=== PATIENT | male | born 1970 | race Caucasian/White ===

== ENCOUNTER 2019-11-11 05:55 | Outpatient (RCR) | payer MEDICAID ==
[~2019-11-11] VITALS: Ht 182 cm; Wt 143.1 kg
[2019-11-11] MEDS ORDERED: ATEN100T PO (10:35)
[2019-11-11] MEDS ORDERED: CETI10TA21 PO (10:35)
[2019-11-11] MEDS ORDERED: FLUT100D2 IH (10:35)
[2019-11-11] MEDS ORDERED: ONDN4T PO (10:35)
[2019-11-11] MEDS ORDERED: LISI40TA PO (10:35)
[2019-11-11] MEDS ORDERED: LAMO300T PO (10:35)
[2019-11-11] MEDS ORDERED: ESCI20TA45 PO (10:35)
[2019-11-11] MEDS ORDERED: BUSP30TA2 PO (10:35)
[2019-11-11] MEDS ORDERED: OMEP20TA33 PO (10:35)
[2019-11-11] MEDS ORDERED: TMSL.4C PO (10:35)
[2019-11-11] MEDS ORDERED: GUAN2TAB6 PO (10:35)
[2019-11-11] MEDS ORDERED: MONT10TA21 PO (10:35)
[2019-11-11] MEDS ORDERED: FURO-124 PO (10:35)
[2019-11-11] MEDS ORDERED: MULT-1136 PO (10:35)
[2019-11-11] MEDS ORDERED: [UNRECOGNIZED DRUG - CODE] PO (10:35)
[2019-11-25] MEDS ORDERED: AMLO10TA7 PO (10:39)
[2019-11-25] MEDS ORDERED: TRZ50T PO (10:39)
== END 2020-02-09 | disposition home or self-care (01) ==
LOC: PREOP 05:55
PROVIDERS: ATTEND Specialist
DX: Z01.818 Encounter for other preprocedural examination (principal)

== ENCOUNTER 2019-11-26 05:38 | Outpatient (RCR) | payer MEDICAID ==
[~2019-11-26] VITALS: Ht 182.9 cm; Wt 143.1 kg
[~2019-11-26 05:38] MED LIST: AMLO10TA7 PO; ATEN100T PO; BUSP30TA2 PO; CETI10TA21 PO; ESCI20TA45 PO; FLUT100D2 IH; FURO-124 PO; GUAN2TAB6 PO; LAMO300T PO; LISI40TA PO; MONT10TA21 PO; MULT-1136 PO; OMEP20TA33 PO; ONDN4T PO; TMSL.4C PO; TRZ50T PO; [UNRECOGNIZED DRUG - CODE] PO
== END 2019-11-26 15:11 | disposition home or self-care (01) ==
LOC: PREOP 05:38
PROVIDERS: ATTEND Specialist
DX: Z01.818 Encounter for other preprocedural examination (principal); Z11.59 Encounter for screening for other viral diseases
CPT/HCPCS: 87635

== ENCOUNTER 2019-11-29 08:33 | Day surgery (SDC) | payer MEDICAID ==
[~2019-11-29] VITALS: Ht 182.9 cm; Wt 143.1 kg
--- OUTSIDE RECORDS SUMMARY | 2019-11-29 08:54 | XMS REPORT ---
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 Name Role Phone CHRIS DIAZ Unavailable PROBLEMS Type Condition ICD9-CM Code QBR61-IT Code Onset Dates Condition S tatus SNOMED Code Problem Edema R60.9 Active 863647889 Problem Morbid obesity E66.01 Active 54892 6002 Problem Metabolic syndrome E88.81 Active 2 70196427 Problem Renal insufficiency N28.9 Active 396599141 Problem Vitamin D deficiency E55.9 Active 86679312 Problem Severe episode of recurrent major depressive disorder, without 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 Active 49722735 Problem DANIELA (generalized anxiety disorder) F41.1 Active 69945558 Problem Mixed obsessional thoughts and acts F42.2 Active 10044718 Problem Chronic fatigue R53.82 Active 8422 9001 Problem Other chronic pain G89.29 Active 8 3215779 Problem Borderline personality disorder F60.3 Active 88551591 Problem Attachment disorder F94.1 Active Problem Sciatica, right side M54.31 Active 262110211373970 Problem Insomnia G47.00 Active 184983967 Problem Anxiety F41.9 Active 19622616 Problem BMI 45.0-49.9, adult Z68.42 Active 605420008 Problem Hyperlipemia E78.5 Active 6839781 4 Problem Benign essential hypertension I10 Active 2960595 Problem Callous ulcer, limited to breakdown of skin L98.49 1 Active Problem Hammer toe of right foot M20.41 Activ e 194555090 Problem Hammer toe of second toe of right foot M20.41 Active 433709621 Problem Falling episodes R29.6 Active 161 997926 ALLERGIES No Information ENCOUNTERS Encounter Location Date Diagnosis [facility] [address] [facility] [id number] [place] [address] Dec, [facility] [address] [place] [id number] [address] [place] [phone] 15 Dec, [address] [facility] [address] [id number][place] [id number] 14 Dec, 2019 [facility] [address] [id number] [address] [place] [phone] Dec, [facility] [address] [id number] [address] [place] [phone] Nov, [facility] [address] [id number] [address] [place] [phone] Nov, [facility] [address] [id number] [address] [place] [phone] October, [facility] [address] [id number] [address] [place] [phone] October, [facility] [address] [id number] [address] [place] [phone] October, [facility] [id number] [place] [address] [id number] Sep, [facility] [address] [id number] [address] [place] [phone] Sep, [facility] [id number] [place] [address] [id number] Sep, [facility] [address] [id number] [address] [place] [phone] 28 Sep, 2019 [facility] [address] [id number] [address] [place] [phone] 24 Sep, 2019 [facility] [address] [id number] [address] [place] [phone] Sep, [facility] [address] [id number] [address] [place] [phone] Sep, [facility] [address] [id number] [address] [place] [address] Sep, DANIELA (generalized anxiety dis order) F41.1 ; Severe episode of recurrent major depressive disorder, without 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 ; Mixed obsessional thoughts and acts F42.2 and Borderline personality disorder F60.3 [facility] [address] [place] [address] [facility] [id number] [place] [address] Sep, Severe episode of recurrent major depres sive disorder, without 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 [facility] [address] [id number][place] [id number] Sep, [facility] [address] [id number][place] [id number] Sep, [facility] [address] [id number][place] [id number] Sep, Benign essential hypertension I10 [facility] [address] [facility] [id number] [address] [place] [phone] Sep, [facility] [address] [facility] [id number] [address] [place] [phone] Sep, [facility] [address] [facility] [id number] [address] [place] [phone] Sep, [facility] [address] [facility] [id number] [address] [place] [phone] Sep, DANIELA (generalized anxiety dis order) F41.1 ; Severe episode of recurrent major depressive disorder, without 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 ; Mixed obsessional thoughts and acts F42.2 and Borderline personality disorder F60.3 [facility] [address] [id number], [place] [id number] Aug, [facility] [address] [facility] [id number] [address] [place] [phone] Aug, [facility] [address] [id number][place] [id number] Aug, [facility] [address] [facility] [id number] [address] [place] [phone] Aug, [facility] [address] [id number], [place] [id number] 17 Aug, 2019 Dizzy R42 ; Weight gain R63.5 ; Benign e ssential hypertension I10 ; Falling episodes R29.6 and History of gastric bypass Z98.84 [facility] [address] [place] [id number] [address] [place] [phone] 14 Aug, 2019 [facility] [address] [place] [id number] [address] [place] [phone] 13 Aug, 2019 [facility] [address] [facility] [id number] [address] [place] [address] 11 Aug, 2019 DANIELA (generalized anxiety dis order) F41.1 ; Severe episode of recurrent major depressive disorder, without 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 ; Mixed obsessional thoughts and acts F42.2 and Borderline personality disorder F60.[id number] [place] [id number] Aug, [place] [id number] [place] [address] [id number] Aug, [place] [address] [facility] [id number] [address] [place] [phone] Aug, [id number] [place] [address] [id number] Aug, [id number] [place] [address] [id number] Aug, [place] [address] [facility] [id number] [address] [place] [phone] Aug, [id number] [place] [address] [id number] Aug, Severe episode of recurrent major depres sive disorder, without 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 ; Borderline personality disorder F60.3 ; Anxiety F41.9 and Attachment disorder F94.1 [place] [address] [place] [id number] [address] [place] [phone] Jul, [place] [address] [facility] [id number] [address] [place] [phone] 24 Jul, 2019 DANIELA (generalized anxiety dis order) F41.1 ; Severe episode of recurrent major depressive disorder, without 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 ; Mixed obsessional thoughts and acts F42.2 and Borderline personality disorder F60.3 [place] [id number] [facility] [address] [id number], [place] [id number] Jul, [facility] [address] [facility] [id number] [address] [place] [phone] Jul, [facility] [address] [facility] [id number] [address] [place] [phone] 14 Jul, 2019 [facility] [address] [facility] [id number] [address] [place] [phone] 12 Jul, 2019 [facility] [address] [facility] [id number] [address] [place] [phone] Jul, [facility] [address] [facility] [id number] [address] [place] [phone] Jun, DANIELA (generalized anxiety dis order) F41.1 ; Severe episode of recurrent major depressive disorder, without 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 ; Mixed obsessional thoughts and acts F42.2 and Borderline personality disorder F60.3 [address] [id number][place] [id number] Jun, [facility] [address] [facility] [address] [id number], [place] [id number] Jun, [facility] [address] [facility] [id number] [address] [place] [phone] Jun, [facility] [address] [facility] [id number] [address] [place] [phone] Jun, DANIELA (generalized anxiety dis order) F41.1 ; Severe episode of recurrent major depressive disorder, without 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 ; Mixed obsessional thoughts and acts F42.2 and Borderline personality disorder F60.[address] [place] [id number] [id number], [place] [id number] Jun, [facility] [address] [id number], [place] [id number] Jun, [facility] [address] [id number], [place] [id number] Jun, [facility] [place] [address] [facility] [address] [id number], [place] [id number] Jun, Benign essential hypertension I10 ; Morb id obesity E66.01 ; Severe episode of recurrent major depressive disorder, without 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 ; Excess skin L98.7 and Hyperlipemia E78.5 [place] [address] [place] [id number] [place] [phone] Jun, [place] [address] [place] [id number] [place] [phone] May, [place] [address] [address] May, Severe episode of recurrent major depressive disorder, without 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 ; Mixed obsessional thoughts and acts F42.2 ; DANIELA (generalized anxiety disorder) F41.1 and Borderline personality disorder F60.3 [place] [address] [place] [id number] [address] [place] [phone] May, [facility] [address] [place] [id number] [address] [place] [phone] May, DANIELA (generalized anxiety dis order) F41.1 ; Severe episode of recurrent major depressive disorder, without 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 ; Mixed obsessional thoughts and acts F42.2 and Borderline personality disorder F60.3 [place] [address] [place] [id number] [address] [place] [phone] May, [facility] [address] [place] [id number] [address] [place] [phone] May, [facility] [address] [place] [id number] [address] [place] [address] May, Severe episode of recurrent major depressive disorder, without 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 ; Mixed obsessional thoughts and acts F42.2 ; Borderline personality disorder F60.3 and DANIELA (generalized anxiety disorder) F41.1 [facility] [address] [id number] [address] [place] [address] [phone] May, Caries K02.9 [facility] [address] [id number], [place] [id number] May, Benign essential hypertension I10 [facility] [address] [id number], [place] [id number] Apr, [facility] [address] [id number], [place] [id number] Apr, Benign essential hypertension I10 [facility] [address] [place] [id number] [address] [place] [phone] Apr, Borderline personality disor romero F60.3 ; DANIELA (generalized anxiety disorder) F41.1 ; Mixed obsessional thoughts and acts F42.2 and Severe episode of recurrent major depressive disorder, without 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 [facility] [address] [id number], [place] [id number] Apr, [facility] [address] [id number], [place] [id number] Apr, Benign essential hypertension I10 [facility] [address] [place] [phone] Apr, Severe episode of recurrent major depressive disorder, without 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 ; DANIELA (generalized anxiety disorder) F41.1 ; Borderline personality disorder F60.3 and Mixed obsessional thoughts and acts F42.2 [facility] [address] [id number] [address] [place] [address] [id number] Apr, Dental examination Z01.20 [facility] [address] [id number] [address] [place] [address] [id number] Apr, Caries K02.9 and Dental exam ination Z01.20 [facility] [address] [place] [id number] [address] [place] [phone] Apr, DANIELA (generalized anxiety dis order) F41.1 ; Severe episode of recurrent major depressive disorder, without 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 ; Mixed obsessional thoughts and acts F42.2 and Borderline personality disorder F60.3 [facility] [address] [facility] [id number] [address] [place] [phone] Mar, Severe episode of recurrent major depressive disorder, without 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 ; Mixed obsessional thoughts and acts F42.2 ; Borderline personality disorder F60.3 and DANIELA (generalized anxiety disorder) F41.1 [place] [address] [facility] [id number] [address] [place] [phone] Mar, Severe episode of recurrent major depressive disorder, without 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 ; Mixed obsessional thoughts and acts F42.2 ; DANIELA (generalized anxiety disorder) F41.1 and Borderline personality disorder F60.3 [facility] [address] [place] [id number] [address] [place] [address] [id number] Mar, Dental examination Z01.20 [address]ies K02.[address] [facility] [id number] [place] [address] [id number] Mar, Benign essential hypertension I10 and Fa lling episodes R29.6 [facility] [address] [facility] [id number] [address] [place] [phone] Mar, [place] [address] [facility] [id number] [address] [place] [phone] Mar, Severe episode of recurrent major depressive disorder, without 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 ; Mixed obsessional thoughts and acts F42.2 ; Borderline personality disorder F60.3 and DANIELA (generalized anxiety disorder) F41.1 [place] [address] [facility] [id number] [address] [place] [phone] Mar, [facility] [address] [facility] [id number] [address] [place] [phone] Mar, [facility] [address] [id number], [place] [id number] Mar, [facility] [address] [facility] [id number] [address] [place] [address] Mar, Severe episode of recurrent major depressive disorder, without 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 ; Mixed obsessional thoughts and acts F42.2 ; Borderline personality disorder F60.3 and DANIELA (generalized anxiety disorder) F41.1 [facility] [address] [facility] [id number] [address] [place] [phone] Mar, [facility] [address] [id number] [address] [place] [address] [id number] Feb, Dental examination Z01.20 an d Periodontitis K05.30 [facility] [address] [facility] [id number] [address] [place] [phone] Feb, DANIELA (generalized anxiety dis order) F41.1 ; Severe episode of recurrent major depressive disorder, without 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 ; Mixed obsessional thoughts and acts F42.2 and Borderline personality disorder F60.3 [facility] [address] [id number], [place] [id number] Feb, Acute pain of right knee M25.561 ; Fall, initial encounter W19.XXXA ; Benign essential hypertension I10 and Edema R60.9 [facility] [address] [facility] [id number] [address] [place] [phone] Feb, [facility] [address] [facility] [id number] [address] [place] [phone] Feb, DANIELA (generalized anxiety dis order) F41.1 ; Severe episode of recurrent major depressive disorder, without 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 ; Mixed obsessional thoughts and acts F42.2 and Borderline personality disorder F60.3 [facility] [address] [facility] [id number] [address] [place] [phone] Feb, [facility] [address] [facility] [id number] [address] [place] [phone] Jan, [facility] [address] [facility] [id number] [address] [place] [phone] Jan, [facility] [address] [facility] [id number] [address] [place] [phone] Jan, [facility] [address] [facility] [id number] [place] [address] [phone] Jan, Callus of heel L84 ; Fissure in skin R23 .4 and Hammer toe of second toe of right foot M20.41 [facility] [address] [place] [address] [id number] [place] [address] [id number] Jan, [facility] [address] [place] [id number] [address] [place] [phone] Jan, [facility] [address] [place] [id number] [place] [address] Jan, [place] [address] [address] Jan, Severe episode of recurrent major depressive disorder, without 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 ; DANIELA (generalized anxiety disorder) F41.1 ; Mixed obsessional thoughts and acts F42.2 and Borderline personality disorder F60.3 [facility] [address] [place] [phone] Jan, [facility] [address] [place] [address] [id number] [place] [address] [id number] Jan, Benign essential hypertension I10 [facility] [address] [place] [address] [id number] [place] [address] [id number] Dec, Callous ulcer, limited to breakdown of s kin L98.491 and Morbid obesity E66.01 [facility] [address] [facility] [id number] [address] [place] [address] Dec, [facility] [address] [place] [id number] [address] [place] [phone] Dec, [facility] [address] [place] [id number] [place] [phone] Dec, [facility] [address] [facility] [id number] [address] [place] [phone] Dec, [facility] [address] [facility] [id number] [address] [place] [address] Dec, Severe episode of recurrent major depressive disorder, without 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 [facility] [address] [facility] [id number] [address] [place] [phone] Dec, DANIELA (generalized anxiety dis order) F41.1 ; Severe episode of recurrent major depressive disorder, without 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 ; Mixed obsessional thoughts and acts F42.2 and 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 [facility] [address] [id number], [place] [id number] Dec, Morbid obesity E66.01 [facility] [address] [facility] [id number] [address] [place] [phone] Dec, [facility] [address] [facility] [id number] [address] [place] [address] Dec, [facility] JENNY [address] [id number] [address] Nov, [facility] [address] [id number], [place] [id number] Nov, [facility] [address] [facility] [id number] [address] [place] [address] Nov, [facility] [address] [facility] [id number] [address] [place] [phone] Nov, [facility] [address] [facility] [id number] [address] [place] [phone] Nov, DANIELA (generalized anxiety dis order) F41.1 ; Severe episode of recurrent major depressive disorder, without 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 ; Mixed obsessional thoughts and acts F42.2 and 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 [facility] [address] [id number], [place] [id number] Nov, Morbid obesity E66.01 [facility] [address] [facility] [id number] [address] [place] [phone] Nov, [facility] [address] [facility] [id number] [address] [place] [phone] Nov, DANIELA (generalized anxiety dis order) F41.1 ; Mixed obsessional thoughts and acts F42.2 ; Severe episode of recurrent major depressive disorder, without 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 and 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 [address] [id number], [place] [id number] October, Morbid obesity E66.01 [facility] [address] [id number], [place] [id number] October, Benign essential hypertension I10 and Mo rbid obesity E66.01 [facility] [address] [id number], [place] [id number] October, [facility] [address] [place] [id number] [address] [place] [phone] October, Severe episode of recurrent major depressive disorder, without 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 [facility] [address] [id number], [place] [id number] October, Morbid obesity E66.01 [facility] [address] [id number], [place] [id number] October, [facility] [address] [facility] [id number] [address] [place] [phone] October, Severe episode of recurrent major depressive disorder, without 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 ; DANIELA (generalized anxiety disorder) F41.1 ; Mixed obsessional thoughts and acts F42.2 and 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 [address] [id number], [place] [id number] October, Morbid obesity E66.01 [facility] [address] [id number] [address] [place] [address] [id number] Sep, Dental examination Z01.20 [facility] [address] [id number], [place] [id number] Sep, [facility] [address] [facility] [id number] [place] [address] Sep, Sore in mouth K13.79 and Mor bid obesity E66.01 [facility] [address] [facility] [id number] [address] [place] [phone] Sep, Dental examination Z01.20 [facility] [address] [facility] [id number] [address] [place] [id number] Sep, Anxiety disorder, unspecifie d F41.[id number] [place] [id number] Sep, Mouth ulcer K12.1 [id number] [place] [id number] Sep, Morbid obesity E66.01 [facility] [place] [id number] [place] [id number] Sep, Allergic rhinitis, unspecified seasonali ty, unspecified trigger J30.9 and Shortness of breath R06.02 [facility] [id number] [id number] Sep, 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 [facility] [id number] [id number] Aug, Mouth abscess K12.2 ; Mouth ulcer K12.1 ; Bloating R14.0 and Morbid obesity E66.01 [facility] [address] [id number], [place] [id number] Aug, [facility]USASLAN PharmaceuticalsBROWNLEE [employer] [address] [id number], [place] [id number] Aug, [facility] [address] [id number], [place] [id number] Jul, Major depressive disorder, recurrent, mo derate F33.1 ; Abscess of arm, left L02.414 ; BMI 45.0-49.9, adult Z68.42 and Morbid obesity E66.01 [facility] Jama [facility] [address] [id number], [place] [id number] Jul, [facility] [address] [id number], [place] [id number] Jul, [facility] Jama [facility] [address] [id number], [place] [id number] Jun, Pain in right knee M25.561 and Other chr onic pain G89.29 [facility]USKiesha [address] A[address] [id number], [place] [id number] Jun, Benign essential hypertension I10 ; BMI 45.0-49.9, adult Z68.42 ; Morbid obesity E66.01 ; Vitamin D deficiency E55.9 ; Insomnia G47.00 ; 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 ; Edema R60.9 ; Recurrent major depressive disorder, in partial remission F33.41 ; Chronic fatigue R53.82 ; Acute pain of right knee M25.561 ; Metabolic syndrome E88.81 and Irritable mood R45.4 [place] [address] [place] [id number] [place] [phone] 16 Jun, 2018 [facility] Jama [facility] [address] [id number], [place] [id number] Jun, Irritable mood R45.4 [facility] [address] [place] [id number] [address] [place] [phone] May, [facility] [address] [place] [id number] [address] [place] [address] May, [facility] [address] [place] [id number] [address] [place] [address] May, Recurrent major depressive d isorder, in partial remission F33.41 ; Mixed obsessional thoughts and acts F42.2 ; 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 and BMI 45.0-49.9, adult Z68.42 [facility] [address] [place] [id number] [address] [place] [address] Apr, [facility] [address] [facility] [id number] [address] [place] [address] Apr, [facility] [address] [place] [id number] [address] [place] [phone] Apr, [facility] [address] [place] [id number] [address] [place] [phone] Apr, [facility] [address] [place] [id number] [address] [place] [address] Mar, Mixed obsessional thoughts a nd acts F42.2 ; Recurrent major depressive disorder, in partial remission F33.41 ; DANIELA (generalized anxiety disorder) F41.1 and BMI 45.0-49.9, adult Z68.[id number] [place] [id number] Mar, [id number] [place] [address] [phone] Mar, BMI 45.0-49.9, adult Z68.42 ; Instabilit y of right knee joint M25.361 and Rash R21 [place] [address] [place] [id number] [address] [place] [phone] Jan, Recurrent major depressive d isorder, in partial remission F33.41 ; Mixed obsessional thoughts and acts F42.2 and BMI 45.0-49.9, adult Z68.[id number] [place] [address] [id number] Jan, [place] [id number] [place] [address] [id number] Jan, Benign essential hypertension I10 ; BMI 45.0-49.9, adult Z68.42 ; Metabolic syndrome E88.81 and Allergic rhinitis, unspecified seasonality, unspecified trigger J30.9 [facility] [address] [facility] [id number] [address] [place] [phone] Dec, DANIELA (generalized anxiety dis order) F41.1 and Depressive disorder, not elsewhere classified F32.[address] [id number] [place] [id number] Dec, Recurrent major depressive disorder, in partial remission F33.[address] [id number] [place] [id number] Dec, [facility] [address] [id number], [place] [id number] Nov, [facility] [address] [id number], [place] [id number] Nov, Recurrent major depressive disorder, in partial remission F33.41 [facility] [address] [facility] [id number] [address] [place] [address] Nov, Recurrent major depressive d isorder, in partial remission F33.41 ; Mixed obsessional thoughts and acts F42.2 ; DANIELA (generalized anxiety disorder) F41.1 and BMI 45.0-49.9, adult Z68.42 [facility] [address] [id number] [place] [employer] 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[place] [id number] Nov, [facility] [address] [id number], [place] [id number] Nov, Other conjunctivitis of both eyes H10.89 and Sciatica, right side M54.31 [facility] [address] [id number], [place] [id number] Nov, [facility] [address] [id number], [place] [id number] Nov, [facility] [address] [id number], [place] [id number] October, [facility] [address] [id number], [place] [id number] October, [facility] [address] [facility] [id number] [address] [place] [address] October, BMI 45.0-49.9, adult Z68.42 ; Mixed obsessional thoughts and acts F42.2 ; Recurrent major depressive disorder, in partial remission F33.41 and DANIELA (generalized anxiety disorder) F41.1 [facility] [address] [id number], [place] [id number] October, Benign essential hypertension I10 ; Morb id obesity E66.01 and BMI 45.0-49.9, adult Z68.[address] [id number] [place] [address] [id number] Sep, [facility] [address] [id number] [place] [address] [id number] Sep, [facility] [address] [id number] [place] [address] [id number] Sep, [facility] [address] [id number] [place] [address] [phone] Sep, Hospital discharge follow-up Z09 ; Aller gic rhinitis, unspecified seasonality, unspecified trigger J30.9 and Shortness of breath R06.02 [facility] [address] [id number], [place] [id number] Sep, Recurrent major depressive disorder, in partial remission F33.[address] [id number] [place] [address] [id number] Aug, Irritable mood R45.4 [place] [address] [place] [id number] [address] [place] [address] Aug, [facility] [address] [id number] [place] [address] [id number] Jul, Benign essential hypertension I10 ; Robert a R60.9 and Impacted cerumen of left ear H61.22 [place] [address] [address] Jul, Major depression F32.9 ; Rec urrent major depressive disorder, in partial remission F33.41 and Anxiety F41.9 [place] [address] [address] Jun, Major depression F32.9 ; Rec urrent major depressive disorder, in partial remission F33.[address] [facility] [address] [id number], [place] [id number] Jun, Major depression F32.9 ; Morbid obesity E66.01 ; Irritable mood R45.4 ; Hand weakness R29.898 and Vitamin D deficiency E55.9 [facility] [address] [id number], [place] [id number] Jun, [place] [address] [id number], [place] [id number] May, Major depression F32.9 [place] [address] [facility] [id number] [address] [place] [address] May, Major depression F32.[address] [id number], [place] [id number] May, BMI 50.0-59.9, adult Z68.43 ; Major depr ession F32.9 ; Anxiety F41.9 ; Hypertrophic toenail L60.2 and Pain of left great toe M79.[address] [id number], [place] [id number] May, Recurrent major depressive disorder, in partial remission F33.41 [place] [address] [place] [id number] [address] [place] [address] Apr, [facility] [address] [id number], [place] [id number] Apr, [facility] [address] [facility] [id number] [address] [place] [address] Apr, Major depression F32.9 [facility] [address] [id number], [place] [id number] Apr, Severe episode of recurrent major depres sive disorder, without 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 ; Anxiety F41.[address] [facility] [address] [id number], [place] [id number] Apr, [facility] [address] [facility] [id number] [address] [place] [address] Apr, [facility] [address] [id number], [place] [id number] Apr, [facility] [address] [id number], [place] [id number] Mar, [facility] [address] [id number], [place] [id number] Mar, Allergic conjunctivitis of both eyes H10 .13 [facility] [address] [facility] [id number] [address] [place] [address] Mar, Major depression F32.9 [facility] [address] [id number], [place] [id number] Mar, Metabolic syndrome E88.81 ; History of g astric bypass Z98.890 ; Benign essential hypertension I10 ; Allergic conjunctivitis of both eyes H10.13 and Morbid obesity E66.01 [facility] [address] [facility] [id number] [address] [place] [address] Mar, Major depression F32.9 [facility] [address] [id number], [place] [id number] Feb, [facility] [address] [facility] [id number] [address] [place] [phone] Feb, Major depression F32.9 [facility] [address] [id number], [place] [id number] Feb, Subacute maxillary sinusitis J01.00 and Bronchitis J40 [facility] [address] [facility] [id number] [address] [place] [address] Feb, Major depressive disorder, r ecurrent, moderate F33.1 [facility] [address] [id number], [place] [id number] Jan, [facility] [address] [id number], [place] [id number] Jan, Acute non-recurrent maxillary sinusitis J01.00 and Skin tag L91.8 [facility]USKiesha [place] [address] [place] [address] AVE [id number], [place] [id number] Jan, Cough R05 and Sinus congestion R09.81 [facility]USKiesha OROSCOBRONWLEE[address] [id number], [place] [id number] Jan, [facility]USKiesha OROSCOBROWNLEE[address] [id number], [place] [id number] Jan, Benign essential hypertension I10 ; Hist ory of gastric bypass Z98.890 and Nausea and vomiting in adult R11.2 [place] [id number] [place] [phone] 04 Jan, 2017 Major depressive disorder, r ecurrent, moderate F33.1 [place] [address] [place] [id number] [address] [place] [phone] 12 Dec, 2016 Insomnia G47.00 ; Recurrent major depressive disorder, in partial remission F33.41 and Morbid obesity E66.01 [facility] [address] [id number], [place] [id number] Dec, [facility]USKiesha OROSCOBROWNLEE[address] [id number], [place] [id number] Dec, Chronic bacterial conjunctivitis of left eye H10.402 [facility] [address] [id number], [place] [id number] Nov, [facility]USKiesha OROSCOBROWNLEE[address] [id number], [place] [id number] Nov, Dental examination Z01.20 [facility] [id number] [place] [address] [id number] Nov, Benign essential hypertension I10 ; Hist ory of gastric bypass Z98.890 and Nausea and vomiting in adult R11.2 [place] [address] [place] [id number] [address] [place] [address] Nov, Major depressive disorder, r ecurrent, moderate F33.1 ; Generalized anxiety disorder F41.1 and Insomnia due to other mental disorder F51.05 [place] [address] [facility] [id number] [address] [place] [address] Nov, Recurrent major depressive d isorder, in partial remission F33.41 ; Insomnia G47.00 and Morbid obesity E66.01 [facility] [address] [id number] [place] [id number] October, Abscess of left arm L02.414 [place] [address] [facility] [id number] [address] [place] [address] October, Morbid obesity E66.01 ; Lida r depression F32.9 and Recurrent major depressive disorder, in partial remission F33.41 [facility] [address] [id number], [place] [id number] Sep, Benign essential hypertension I10 ; Morb id obesity E66.01 ; S/P gastric bypass Z98.84 ; Abscess L02.91 and Chronic bacterial conjunctivitis of left eye H10.402 [facility] [id number] [place] [address] [id number] Sep, Dental examination Z01.20 [place] [address] [facility] [id number] [address] [place] [phone] Sep, Morbid obesity E66.01 ; Lida r depression F32.9 and Recurrent major depressive disorder, in partial remission F33.41 [place] [address] [facility] [id number] [address] [place] [phone] Jul, [place] [address] [facility] [id number] [address] [place] [phone] Jul, Major depressive disorder, r ecurrent, moderate F33.1 [place] [address] [facility] [id number] [address] [place] [address] Jul, Major depressive disorder, r ecurrent, moderate F33.1 and Generalized anxiety disorder F41.1 [facility] [address] [id number], [place] [id number] Jul, Cough R05 [facility] [address] [facility] [id number] [address] [place] [address] Jul, Morbid obesity E66.01 ; Lida r depression F32.9 and Recurrent major depressive disorder, in partial remission F33.41 [facility] [address] [id number], [place] [id number] Jul, [facility] [address] [id number], [place] [id number] Jul, [place] [id number] [place] [address] [id number] Jul, Gastroenteritis K52.9 and Cough R05 [id number] [place] [address] [id number] Jun, Acute bacterial conjunctivitis of left e ye H10.32 [facility] [address] [place] [id number] [address] [place] [address] Jun, [place] [address] [address] Jun, Recurrent major depressive d isorder, in partial remission F33.41 [facility] [address] [place] [id number] [address] [place] [address] May, Major depression F32.9 and M orbid obesity E66.01 [facility] [address] [place] [id number] [place] [phone] May, [facility] [address] [facility] [address] [id number] [place] [address] [id number] May, Thrush B37.0 [facility] [address] [place] [id number] [address] [place] [address] Apr, Major depressive disorder, r ecurrent, moderate F33.1 [facility] [address] [place] [id number] [address] [place] [phone] 15 Apr, 2016 Insomnia G47.00 ; Major depr ession F32.9 and Recurrent major depressive disorder, in partial remission F33.41 [facility] [address] [facility] [id number] [address] [place] [phone] Apr, [place] [address] [facility] [id number] [address] [place] [phone] Apr, Major depression F32.9 and R ecurrent major depressive disorder, in partial remission F33.[address] [id number], [place] [id number] Mar, Benign essential hypertension I10 ; Morb id obesity E66.01 ; Impacted cerumen of both ears H61.23 ; Laceration of finger of right hand, initial encounter S61.219A and Encounter for immunization Z23 [facility] [address] [facility] [id number] [address] [place] [phone] 17 Mar, 2016 [place] [address] [facility] [id number] [address] [place] [phone] Mar, [place] [address] [facility] [id number] [address] [place] [phone] Mar, [address] [id number], [place] [id number] Feb, Nausea R11.0 ; Blood in the stool K92.1 and Benign essential hypertension I10 [place] [address] [facility] [id number] [address] [place] [phone] Feb, Major depression F32.9 and R ecurrent major depressive disorder, in partial remission F33.41 [facility] [address] [id number], [place] [id number] Feb, [place] [address] [id number], [place] [id number] Feb, Recurrent major depressive disorder, in partial remission F33.41 [facility] [address] [id number], [place] [id number] Jan, [facility] [address] [id number], [place] [id number] Jan, Benign essential hypertension I10 ; Robert a R60.9 and Hyperlipidemia, unspecified hyperlipidemia type E78.5 [facility] [address] [id number], [place] [id number] Jan, Recurrent major depressive disorder, in partial remission F33.41 [facility] [address] [id number] [place] [id number] Jan, [facility] [address] [id number], [place] [id number] Jan, [facility] [address] [id number], [place] [id number] Jan, [facility] [address] [facility] [id number] [address] [place] [phone] Jan, [facility] [address] [facility] [id number] [address] [place] [address] Dec, [facility] [address] [facility] [id number] [address] [place] [address] Nov, [facility] [address] [facility] [id number] [address] [place] [address] Nov, Major depression F32.9 [facility] [address] [facility] [id number] [address] [place] [address] Nov, [facility] [address] [facility] [id number] [address] [place] [address] Nov, [facility] [address] [facility] [id number] [address] [place] [phone] Nov, Major depressive disorder, r ecurrent episode, mild F33.0 and Anxiety F41.9 [facility] [address] [id number], [place] [id number] Nov, [facility] [address] [id number], [place] [id number] October, Left elbow pain M25.522 and Other season al allergic rhinitis J30.2 [facility] [address] [facility] [address] [id number], [place] [id number] October, [facility] [address] [facility] [id number] [address] [place] [address] October, Major depressive disorder, r ecurrent, moderate F33.1 [facility] [address] [facility] [id number] [address] [place] [phone] October, Major depression F32.9 [facility] [address] [facility] [id number] [address] [place] [phone] Sep, Snyder or callus L84 and Onych omycosis B35.1 [facility] [address] [facility] [id number] [address] [place] [phone] Sep, Major depressive disorder, r ecurrent, moderate F33.1 [facility] [address] [facility] [id number] [address] [place] [address] Sep, Major depression F32.9 [facility] [address] [facility] [id number] [address] [place] [address] Sep, Moderate episode of recurren t major depressive disorder F33.1 [facility] [address] [place] [address] AVE [id number], [place] [id number] Sep, Muscle strain T14.8 [facility] [address] [facility] [id number] [address] [place] [phone] Aug, Major depression F32.9 [facility] [address] [facility] [id number] [address] [place] [phone] Aug, Major depression F32.9 [facility] [address] [facility] [id number] [address] [place] [address] Jul, Morbid obesity E66.01 and Ma cora depression F32.9 [facility] [address] [facility] [id number] [address] [place] [phone] Jul, Depression, major, recurrent , moderate F33.[address] [id number] [id number] Jul, [facility] [address] [facility] [id number] [address] [place] [id number] Jul, [facility] [address] [facility] [id number] [address] [place] [id number] Jul, Major depression F32.9 and M orbid obesity E66.[address] [id number] [id number] Jul, Type II diabetes mellitus E11.9 ; Callus of foot L84 ; Benign essential hypertension I10 and Renal insufficiency N28.9 [facility] [address] [facility] [id number] [address] [place] [id number] 09 Jul, 2015 Depression, major, recurrent , moderate F33.1 [facility] [address] [facility] [id number] [address] [place] [id number] Jul, Major depression F32.9 [facility] [address] [place] [id number] [address] [place] [id number] Jul, [facility] [address] [facility] [id number] [address] [place] [id number] Jun, Major depression F32.9 [facility] [address] [facility] [id number] [address] [place] [id number] Jun, Major depressive disorder, r ecurrent, moderate F33.1 [facility] [address] [facility] [id number] [address] [place] [id number] Jun, [place] [address] [facility] [id number] [address] [place] [id number] Jun, Major depressive disorder, r ecurrent, moderate F33.1 and Major depression F32.[address] [id number][place] [id number] Jun, Type II diabetes mellitus E11.9 [place] [address] [address] [facility] [id number] [address] [place] [id number] Jun, Depression, major, recurrent , moderate F33.1 [place] [address] [address] [facility] [id number] [address] [place] [phone] May, Major depressive disorder, r ecurrent, moderate F33.1 [place] [address] [address] [facility] [id number] [address] [place] [phone] May, [place] [address] [id number], [place] [id number] May, Edema R60.9 [place] [address] [address] [facility] [id number] [address] [place] [address] May, Insomnia G47.00 and Major de pression F32.[address] [place] [id number] [place] [address] [id number] May, Morbid obesity E66.01 ; Edema R60.9 ; Sh ortness of breath R06.02 ; Benign essential hypertension I10 and Renal insufficiency N28.[address] [place] [id number] [place] [address] [id number] May, Hyperlipemia 272.4 and Renal insufficien cy N28.9 [place] [address] [address] [facility] [id number] [address] [place] [address] Apr, Major depression F32.9 [place] [address] [address] [facility] [id number] [address] [place] [address] Apr, [place] [address] [address] [facility] [id number] [address] [place] [address] Apr, Major depressive disorder, r ecurrent, moderate F33.[address] [place] [address] [id number] [id number] Apr, Type II diabetes mellitus E11.9 ; Benign essential hypertension I10 ; Edema R60.9 and Renal insufficiency N28.9 [place] [address] N [facility] [id number] [address] [place] [address] Mar, Major depressive disorder, r ecurrent, moderate F33.1 [facility] [address] [facility] [id number] [address] [place] [address] Mar, [facility] [address] [facility] [id number] [address] [place] [address] Mar, Major depression F32.9 [facility] [id number] [place] [address] [id number] Mar, Morbid obesity E66.01 ; Benign essential hypertension I10 and Type II diabetes mellitus E11.9 [place] [address] [address] [facility] [id number] [address] [place] [address] Feb, Major depressive disorder, r ecurrent, moderate F33.1 [place] [address] [address] [place] [id number] [address] [place] [address] Feb, Major depressive disorder, r ecurrent episode, in partial or unspecified remission 296.35 ; Anxiety state, unspecified 300.00 and Morbid obesity 278.01 [place] [address] [address] [place] [id number] [address] [place] [address] Feb, [place] [id number] [place] [address] [id number] Feb, Vomiting 787.03 and Viral syndrome 079.9 9 [place] [address] [address] [place] [id number] [address] [place] [address] 15 Feb, 2015 Major depression, recurrent 296.30 ; Generalized anxiety disorder 300.02 and No condition on [facility] II V71.09 [facility] [id number] [place] [address] [id number] Feb, Skin tag 701.9 [facility] [address] N [facility] [id number] [address] [place] [address] Feb, [place] [address] [address] [place] [id number] [address] [place] [address] Jan, Depression, major, recurrent , moderate 296.[address] [id number][place] [id number] Jan, Nausea and vomiting 787.01 ; Rib pain on right side 786.50 and Fall on or from sidewalk curb E880.1 [facility] [address] [facility] [id number] [address] [place] [address] Jan, [facility] [address] N [place] [id number] [address] [place] [address] Jan, Major depressive disorder, r ecurrent episode, in partial or unspecified remission 296.35 and Anxiety state, unspecified 300.[address] [id number] [id number] Jan, [facility] 301 N [facility] [id number] [address] [place] [address] Jan, Depression, major, recurrent , moderate 296.32 [facility] [address] [facility] [id number] [address] [place] [address] Jan, Major depression, recurrent 296.30 ; No condition on Hopkins II V71.09 and No condition on axis III V71.[address] [id number] [id number] Jan, Drug-induced nausea and vomiting 787.01 [facility] 301 N [facility] [id number] [address] [place] [address] Jan, Depression, major, recurrent , moderate 296.32 [place] [address] [address] [facility] [id number] [address] [place] [address] Dec, Depression, major, recurrent , moderate 296.[address] [id number][place] [id number] Dec, Morbid obesity 278.01 ; Metabolic syndro me 277.7 ; Hyperlipemia 272.4 ; Benign essential hypertension 401.1 ; Dietary counseling V65.3 ; Exercise counseling V65.41 and Inflamed skin tag 701.9 [place] [address] [address] Dec, Depression, major, recurrent , moderate 296.32 [place] [address] [address] Dec, [place] [address] [address] Dec, Major depression, recurrent 296.30 ; Anxiety, generalized 300.02 and No condition on Hopkins II V71.09 [place] [address] [address] Dec, Depression, major, recurrent , moderate 296.32 [place] [address] [address] Dec, Major depressive disorder, r ecurrent episode, moderate 296.[address] [address] Dec, Depression, major, recurrent , moderate 296.32 [place] [address] [address] Dec, Depression, major, recurrent , moderate 296.32 [place] [address] [address] Dec, Depression, major, recurrent , moderate 296.32 [place] [address] [address] Dec, Depression, major, recurrent , moderate 296.32 [place] [address] [address] Nov, Depression, major, recurrent , moderate 296.32 [place] [address] [address] Nov, Major depression 296.20 ; So cial phobia 300.23 and No condition on Hopkins II V71.09 [place] [address] [address] [place] [address] 16 Nov, 2014 Depression, major, recurrent , moderate 296.32 [facility] [address] [facility] [id number] [address] [place] [address] 09 Nov, 2014 Major depressive disorder, r ecurrent episode, moderate 296.32 and Generalized anxiety disorder 300.02 [facility] [address] [facility] [id number] [address] [place] [address] Nov, Depression, major, recurrent , moderate 296.32 [facility] [address] [facility] [id number] [address] [place] [address] Nov, Depression, major, recurrent , moderate 296.32 [facility] [address] [place] [id number] [place] [address] October, Generalized anxiety disorder 300.02 ; No condition on Hopkins II V71.09 and Major depressive disorder, recurrent 296.30 [facility] [address] [place] [id number] [address] [place] [address] Sep, [facility] [address] [place] [id number] [address] [place] [address] Sep, [facility] [address] [place] [id number] [address] [place] [address] Aug, [facility] [address] [place] [id number] [address] [place] [address] Aug, [facility] [address] [place] [id number] [address] [place] [address] Aug, [facility] [address] [place] [id number] [address] [place] [address] Aug, [facility] [address] [place] [id number] [address] [place] [address] Aug, [facility] [address] [place] [id number] [address] [place] [address] Aug, [facility] [address] [place] [id number] [address] [place] [address] 20 Aug, 2014 [facility] [address] [id number] [address] [place] [address], [place] [address] 20 Aug, 2014 [facility] [place] [facility] [address] [id number] [address] [place] [address], [place] [address] 13 Aug, 2014 [facility] [place] [facility] [address] [id number] [address] [place] [address], [place] [address] 13 Aug, 2014 [facility] [place] [facility] [address] [id number] [address] [place] [address], [place] [address] 13 Aug, 2014 [facility] [place] [facility] [address] [id number] [address] [place] [address], [place] [address] Aug, [facility] [place] [facility] [address] [id number] [address] [place] [address], [place] [address] Aug, [facility] [place] [facility] [address] [id number] [address] [place] [address], [place] [address] Aug, [facility] [place] [facility] [address] [id number] [address] [place] [address], [place] [address] 10 Aug, 2014 [facility] [place] [facility] [address] [id number] [address] [place] [address], [place] [address] 10 Aug, 2014 [facility] [place] [facility] [address] [id number] [address] [place] [address], [place] [address] Aug, [facility] [place] [facility] [address] [id number] [address] [place] [address], [place] [address] Aug, [facility] [place] [facility] [address] [id number] [address] [place] [address], [place] [address] 24 Jul, 2014 [facility] [place] [facility] [address] [id number] [address] [place] [address], [place] [address] Jul, [facility] [place] [facility] [address] [id number] [address] [place] [address], [place] [address] 16 Jul, 2014 [facility] [place] [facility] [address] [id number] [address] [place] [address], [place] [address] 16 Jul, 2014 [facility] [place] [facility] [address] [id number] [address] [place] [address], [place] [address] Jul, [facility] [address] [id number] [address] [place] [address], [place] [address] Jul, [facility] [address] [id number] [address] [place] [address], [place] [address] Jun, [facility] [address] [id number] [address] [place] [address], [place] [address] Jun, [facility] [address] [id number] [address] [place] [address], [place] [address] Jun, [facility] [address] [id number] [address] [place] [address], [place] [address] Jun, [facility] [address] [id number] [address] [place] [address], [place] [address] Jun, [facility] [address] [id number] [address] [place] [address], [place] [address] Jun, [facility] [address] [id number] [address] [place] [address], [place] [address] Jun, [facility] [address] [id number] [address] [place] [address], [place] [address] Jun, [facility] [address] [id number] [address] [place] [address], [place] [address] Jun, [facility] [address] [id number] [address] [place] [address], [place] [address] Jun, [facility] [address] [id number] [address] [place] [address], [place] [address] Jun, [facility] [address] [id number] [address] [place] [address], [place] [address] Jun, [facility] [address] [id number] [id number] Jun, [facility] [address] [id number] [address] [place] [address], [place] [address] Jun, [facility] [address] [id number] [address] [place] [address], [place] [address] Jun, [facility] [place] [facility] [address] [id number] [address] [place] [address], [place] [address] Jun, [facility] [address] [id number] [address] [place] [address], [place] [address] May, [facility] [place] [facility] [address] [id number] [address] [place] [address], [place] [address] May, [facility] [address] [id number] [address] [place] [address], [place] [address] May, [facility] [place] [facility] [address] [id number] [address] [place] [address], [place] [address] May, [facility] [place] [facility] [address] [id number] [address] [place] [address], [place] [address] Apr, [facility] [place] [facility] [address] [id number] [address] [place] [address], [place] [address] Apr, [facility] [place] [facility] [address] [id number] [address] [place] [address], [place] [address] Apr, [facility] [place] [facility] [address] [id number] [address] [place] [address], [place] [address] Apr, [facility] [place] [facility] [address] [id number] [address] [place] [address], [place] [address] Apr, [facility] [place] [facility] [address] [id number] [address] [place] [address], [place] [address] Apr, [facility] [place] [facility] [address] [id number] [address] [place] [address], [place] [address] Apr, [facility] [place] [facility] [address] [id number] [address] [place] [address], [place] [address] Apr, [facility] [place] [facility] [address] [id number] [address] [place] [address], [place] [address] Apr, [facility] [place] [facility] [address] [id number] [address] [place] [address], [place] [address] Apr, [facility] [place] [facility] [address] [id number] [address] [place] [address], [place] [address] Apr, [facility] [place] [facility] [address] [id number] [address] [place] [address], [place] [address] Apr, [facility] [place] [facility] [address] [id number] [address] [place] [address], [place] [address] Apr, [facility] [place] [facility] [address] [id number] [address] [place] [address], [place] [address] Apr, [facility] [place] [facility] [address] [id number] [address] [place] [address], [place] [address] Apr, [facility] [place] [facility] [address] [id number] [address] [place] [address], [place] [address] Apr, [facility] [place] [facility] [address] [id number] [address] [place] [address], [place] [address] Apr, [facility] [place] [facility] [address] [id number] [address] [place] [address], [place] [address] Apr, [facility] [place] [facility] [address] [id number] [address] [place] [address], [place] [address] Apr, [facility] [place] [facility] [address] [id number] [address] [place] [address], [place] [address] Apr, [facility] [place] [facility] [address] [id number] [address] [place] [address], [place] [address] Mar, [facility] [place] [facility] [address] [id number] [address] [place] [address], [place] [address] Mar, [facility] [place] [facility] [address] [id number] [address] [place] [address], [place] [address] Mar, [facility] [place] [facility] [address] [id number] [address] [place] [address], [place] [address] Mar, [facility] [place] [facility] [address] [id number] [address] [place] [address], [place] [address] Mar, [facility] [place] [facility] [address] [id number] [address] [place] [address], [place] [address] Mar, [facility] [place] [facility] [address] [id number] [address] [place] [address], [place] [address] Mar, [facility] [place] [facility] [address] [id number] [address] [place] [address], [place] [address] Mar, [facility] [place] [facility] [address] [id number] [address] [place] [address], [place] [address] Mar, [facility] [place] [facility] [address] [id number] [address] [place] [address], [place] [address] Mar, [facility] [place] [facility] [address] [id number] [address] [place] [address], [place] [address] Feb, [facility] [place] [facility] [address] [id number] [address] [place] [address], [place] [address] Feb, [facility] [place] [facility] [address] [id number] [address] [place] [address], [place] [address] Feb, [facility] [place] [facility] [address] [id number] [address] [place] [address], [place] [address] Feb, [facility] [place] [facility] [address] [id number] [address] [place] [address], [place] [address] Jan, [facility] [place] [facility] [address] [id number] [address] [place] [address], [place] [address] Jan, [facility] [place] [facility] [address] [id number] [address] [place] [address], [place] [address] Jan, [facility] [place] [facility] [address] [id number] [address] [place] [address], [place] [address] Jan, [facility] [place] [facility] [address] [id number] [address] [place] [address], [place] [address] Jan, [facility] [place] [facility] [address] [id number] [address] [place] [address], [place] [address] Jan, [facility] [place] [facility] [address] [id number] [address] [place] [address], [place] [address] Dec, [facility] [address] [id number] [facility] [place] [address] Dec, [facility] [place] [facility] [address] [id number] [address] [place] [address], [place] [address] Nov, [facility] [address] [id number] [address] [place] [address], [place] [address] Nov, [facility] [place] [facility] [address] [id number] [address] [place] [address], [place] [address] Nov, [facility] [address] [id number] [address] [place] [address], [place] [address] Nov, [facility] [address] [id number] [address] [place] [address], [place] [address] Nov, [facility] [address] [id number] [address] [place] [address], [place] [address] Nov, [facility] [place] [facility] [address] [id number] [address] [place] [address], [place] [address] Sep, [facility] [address] [id number] [address] [place] [address], [place] [address] Sep, [facility] [place] [facility] [address] [id number] [address] [place] [address], [place] [address] Sep, [facility] [place] [facility] [address] [id number] [address] [place] [address], [place] [address] Sep, [facility] [place] [facility] [address] [id number] [address] [place] [address], [place] [address] Aug, [facility] [place] [facility] [address] [id number] [address] [place] [address], [place] [address] Aug, [facility] [place] [facility] [address] [id number] [address] [place] [address], [place] [address] Jul, [facility] [place] [facility] [address] [id number] [address] [place] [address], [place] [address] Jul, [facility] [place] [facility] [address] [id number] [address] [place] [address], [place] [address] Jun, [facility] [address] [id number] [address] [place] [address], [place] [address] Jun, [facility] [address] [id number] [address] [place] [address], [place] [address] Jun, [facility] [address] [id number] [address] [place] [address], [place] [address] Jun, [facility] [address] [id number] [address] [place] [address], [place] [address] May, [facility] [address] [id number] [address] [place] [address], [place] [address] May, [facility] [address] [id number] [address] [place] [address], [place] [address] May, [facility] [address] [id number] [address] [place] [address], [place] [address] May, [facility] [address] [id number] [address] [place] [address], [place] [address] May, [facility] [address] [id number] [address] [place] [address], [place] [address] May, [facility] [address] [id number] [address] [place] [address], [place] [address] Apr, [facility] [address] [id number] [address] [place] [address], [place] [address] Apr, [facility] [address] [id number] [address] [place] [address], [place] [address] Apr, [facility] [address] [id number] [address] [place] [address], [place] [address] Apr, [facility] [address] [id number] [address] [place] [address], [place] [address] Mar, [facility] [address] [id number] [address] [place] [address], [place] [address] Mar, [facility] [address] [id number] [address] [place] [address], [place] [address] Mar, [facility] [address] [id number] [address] [place] [address], [place] [address] Mar, [facility] [address] [id number] [address] [place] [address], [place] [address] Feb, [facility] [address] [id number] [place] [id number] Jan, [facility] [address] [id number] [address] [place] [address], [place] [address] Jan, [facility] [address] [id number] [address] [place] [address], [place] [address] Dec, [facility] [address] [id number] [address] [place] [address], [place] [address] Dec, [facility] [address] [id number] [address] [place] [address], [place] [address] Dec, [facility] [address] [facility] [id number] [place] [id number] Dec, [facility] [address] [id number] [address] [place] [address], [place] [address] Nov, [facility] [address] [id number] [address] [place] [address], [place] [address] Nov, [facility] [address] [id number] [address] [place] [id number] Nov, [facility] [address] [id number] [address] [place] [address], [place] [address] Nov, [facility] [address] [id number] [address] [place] [address], [place] [address] Nov, [facility] [address] [id number] [address] [place] [address], [place] [address] October, [facility] [address] [id number] [address] [place] [id number] October, [facility] [address] [facility] [id number] [place] [address] Aug, [facility] [address] [facility] [id number] [address] [place] [id number] Nov, IMMUNIZATIONS No Known Immunizations SOCIAL HISTORY Never Assessed REASON FOR VISIT PLAN OF CARE VITAL SIGNS MEDICATIONS Unknown Medications RESULTS No Results PROCEDURES No Known procedures INSTRUCTIONS MEDICATIONS ADMINISTERED No Known Medications MEDICAL (GENERAL) HISTORY Type Description Date Medical History sleep apnea Medical History hypertension Medical History 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 Medical History H yplori- dx 12/2014 ANGUIANO Medical History Echo 05/2015- Stage II diast olic dysfunction, LV hypertrophy, EF 60% Medical History Major Depression- Prozac, We llbutrin, Trintellix, Celexa, Lexapro, Paxil, Effexor, Cymbalta, Abilify Medical History Insomnia Medical History chronic renal insufficiency Medical History Obsessive Compulsive Disorder with Perse veration Surgical History EGD- Esophagus stretching- ANGUIANO 2014 Surgical History gastric sleeve 03/2016 Surgical History RT wrist 03/2019 Surgical History RT wrist plated 04/2019 Hospitalization History gastric sleeve Hospitalization History [facility] ER Trouble with left shoulder blade 08/2017
--- OUTSIDE RECORDS SUMMARY | 2019-11-29 08:54 | XMS REPORT ---
Author Author Curt DIAZ [facility] Address [address] [place] [address] Care Team Providers Care Hearing Care Practitioner Name Role Phone CHRIS DIAZ Unavailable PROBLEMS Type Condition ICD9-CM Code EXJ36-VF Code Onset Dates Condition S tatus SNOMED Code Problem Edema R60.9 Active 812689771 Problem Morbid obesity E66.01 Active 58835 6002 Problem Metabolic syndrome E88.81 Active 2 51714607 Problem Renal insufficiency N28.9 Active 721478075 Problem Vitamin D deficiency E55.9 Active 50479068 Problem Severe episode of recurrent major depressive disorder, without 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 Active 98497595 Problem DANIELA (generalized anxiety disorder) F41.1 Active 11686544 Problem Mixed obsessional thoughts and acts F42.2 Active 87993592 Problem Chronic fatigue R53.82 Active 8422 9001 Problem Other chronic pain G89.29 Active 8 9623142 Problem Borderline personality disorder F60.3 Active 72377787 Problem Attachment disorder F94.1 Active Problem Sciatica, right side M54.31 Active [id number] Problem Insomnia G47.00 Active 541361652 Problem Anxiety F41.9 Active 64183874 Problem BMI 45.0-49.9, adult Z68.42 Active 595064598 Problem Hyperlipemia E78.5 Active 7387817 4 Problem Benign essential hypertension I10 Active 7440431 Problem Callous ulcer, limited to breakdown of skin L98.49 1 Active Problem Hammer toe of right foot M20.41 Activ e 462464305 Problem Hammer toe of second toe of right foot M20.41 Active 940627705 Problem Falling episodes R29.6 Active 161 863116 ALLERGIES No Information ENCOUNTERS Encounter Location Date Diagnosis [facility] [address] [facility] [id number] [place] [address] Dec, [facility] [address] [place] [id number] [address] [place] [id number] 15 Dec, [address] [facility] [address] [id number][place] [id number] 14 Dec, 2019 [facility] [address] [id number] [address] [place] [phone] Dec, [facility] [address] [id number] [address] [place] [phone] Nov, [facility] [address] [id number] [address] [place] [phone] Nov, [facility] [address] [id number] [address] [place] [phone] October, [facility] [address] [id number] [address] [place] [id number] October, [facility] [address] [id number] [address] [place] [phone] October, [facility] [id number] [place] [id number] Sep, [facility] [address] [id number] [address] [place] [phone] Sep, [facility] [id number] [place] [address] [id number] Sep, [facility] [address] [id number] [address] [place] [id number] 28 Sep, 2019 [facility] [address] [id number] [address] [place] [phone] 24 Sep, 2019 [facility] [address] [id number] [address] [place] [phone] Sep, [facility] [address] [id number] [address] [place] [phone] Sep, [facility] [address] [id number] [address] [place] [phone] Sep, DANIELA (generalized anxiety dis order) F41.1 ; Severe episode of recurrent major depressive disorder, without 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 ; Mixed obsessional thoughts and acts F42.2 and Borderline personality disorder F60.3 [facility] [address] [facility] [id number] [place] [address] Sep, Severe episode of recurrent major depres sive disorder, without 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 [facility] [address] [id number][place] [id number] Sep, [facility] [address] [id number][place] [id number] Sep, [facility] [address] [id number][place] [id number] Sep, Benign essential hypertension I10 [facility] [address] [facility] [id number] [address] [place] [phone] Sep, [facility] [address] [facility] [id number] [address] [place] [phone] Sep, [facility] [address] [facility] [id number] [address] [place] [phone] Sep, [facility] [address] [facility] [id number] [address] [place] [phone] Sep, DANIELA (generalized anxiety dis order) F41.1 ; Severe episode of recurrent major depressive disorder, without 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 ; Mixed obsessional thoughts and acts F42.2 and Borderline personality disorder F60.3 [facility] [address] [id number][place] [id number] Aug, [facility] [address] [facility] [id number] [address] [place] [phone] Aug, [facility] [address] [id number], [place] [id number] Aug, [facility] [address] [facility] [id number] [address] [place] [phone] Aug, [facility] [address] [id number], [place] [id number] 17 Aug, 2019 Dizzy R42 ; Weight gain R63.5 ; Benign e ssential hypertension I10 ; Falling episodes R29.6 and History of gastric bypass Z98.84 [facility] [address] [place] [place] [id number] [address] [place] [phone] 14 Aug, 2019 [facility] [address] [place] [id number] [address] [place] [id number] 13 Aug, 2019 [facility] [address] [facility] [id number] [address] [place] [phone] 11 Aug, 2019 DANIELA (generalized anxiety dis order) F41.1 ; Severe episode of recurrent major depressive disorder, without 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 ; Mixed obsessional thoughts and acts F42.2 and Borderline personality disorder F60.[id number] [place] [address] [id number] Aug, [place] [id number] [place] [address] [id number] Aug, [place] [address] [facility] [id number] [address] [place] [phone] Aug, [address] [id number] [place] [address] [id number] Aug, [address] [id number] [place] [address] [id number] Aug, [place] [address] [facility] [id number] [address] [place] [phone] Aug, [id number] [place] [address] [id number] Aug, Severe episode of recurrent major depres sive disorder, without 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 ; Borderline personality disorder F60.3 ; Anxiety F41.9 and Attachment disorder F94.1 [place] [address] [place] [id number] [address] [place] [phone] Jul, [place] [address] [facility] [id number] [address] [place] [phone] 24 Jul, 2019 DANIELA (generalized anxiety dis order) F41.1 ; Severe episode of recurrent major depressive disorder, without 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 ; Mixed obsessional thoughts and acts F42.2 and Borderline personality disorder F60.3 [place] [address] [facility] [address] [id number][place] [id number] Jul, [facility] [address] [facility] [id number] [address] [place] [phone] Jul, [facility] [address] [facility] [id number] [address] [place] [id number] 14 Jul, 2019 [facility] [address] [facility] [id number] [address] [place] [phone] 12 Jul, 2019 [facility] [address] [facility] [id number] [address] [place] [phone] Jul, [facility] [address] [facility] [id number] [address] [place] [phone] Jun, DANIELA (generalized anxiety dis order) F41.1 ; Severe episode of recurrent major depressive disorder, without 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 ; Mixed obsessional thoughts and acts F42.2 and Borderline personality disorder F60.3 [address] [id number], [place] [id number] Jun, [facility] [address] [facility] [address] [id number], [place] [id number] Jun, [facility] [address] [facility] [id number] [address] [place] [phone] Jun, [facility] [address] [facility] [id number] [address] [place] [phone] Jun, DANIELA (generalized anxiety dis order) F41.1 ; Severe episode of recurrent major depressive disorder, without 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 ; Mixed obsessional thoughts and acts F42.2 and Borderline personality disorder F60.[address] [place] [address] [id number], [place] [id number] Jun, [facility] [address] [id number], [place] [id number] Jun, [facility] [address] [id number], [place] [id number] Jun, [facility] [address] [facility] [address] [id number], [place] [id number] Jun, Benign essential hypertension I10 ; Morb id obesity E66.01 ; Severe episode of recurrent major depressive disorder, without 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 ; Excess skin L98.7 and Hyperlipemia E78.5 [place] [address] [place] [id number] [place] [phone] Jun, [place] [address] [place] [id number] [place] [phone] May, [place] [address] [phone] May, Severe episode of recurrent major depressive disorder, without 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 ; Mixed obsessional thoughts and acts F42.2 ; DANIELA (generalized anxiety disorder) F41.1 and Borderline personality disorder F60.3 [place] [address] [place] [id number] [address] [place] [phone] May, [facility] [address] [place] [id number] [address] [place] [phone] May, DANIELA (generalized anxiety dis order) F41.1 ; Severe episode of recurrent major depressive disorder, without 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 ; Mixed obsessional thoughts and acts F42.2 and Borderline personality disorder F60.3 [place] [address] [place] [id number] [address] [place] [phone] May, [facility] [address] [place] [id number] [address] [place] [phone] May, [facility] [address] [place] [id number] [address] [place] [phone] May, Severe episode of recurrent major depressive disorder, without 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 ; Mixed obsessional thoughts and acts F42.2 ; Borderline personality disorder F60.3 and DANIELA (generalized anxiety disorder) F41.1 [facility] [address] [id number] [address] [place] [address] [id number] May, Caries K02.9 [facility] [address] [id number][place] [id number] May, Benign essential hypertension I10 [facility] [address] [id number], [place] [id number] Apr, [facility] [address] [id number], [place] [id number] Apr, Benign essential hypertension I10 [facility] [address] [place] [id number] [address] [place] [phone] Apr, Borderline personality disor romero F60.3 ; DANIELA (generalized anxiety disorder) F41.1 ; Mixed obsessional thoughts and acts F42.2 and Severe episode of recurrent major depressive disorder, without 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 [facility] [address] [id number], [place] [id number] Apr, [facility] [address] [id number], [place] [id number] Apr, Benign essential hypertension I10 [facility] [address] [place] [phone] Apr, Severe episode of recurrent major depressive disorder, without 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 ; DANIELA (generalized anxiety disorder) F41.1 ; Borderline personality disorder F60.3 and Mixed obsessional thoughts and acts F42.2 [facility] [address] [id number] [address] [place] [address] [id number] Apr, Dental examination Z01.20 [facility] [address] [id number] [address] [place] [address] [id number] Apr, Caries K02.9 and Dental exam ination Z01.20 [facility] [address] [place] [id number] [address] [place] [phone] Apr, DANIELA (generalized anxiety dis order) F41.1 ; Severe episode of recurrent major depressive disorder, without 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 ; Mixed obsessional thoughts and acts F42.2 and Borderline personality disorder F60.3 [facility] [address] [facility] [id number] [address] [place] [phone] Mar, Severe episode of recurrent major depressive disorder, without 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 ; Mixed obsessional thoughts and acts F42.2 ; Borderline personality disorder F60.3 and DANIELA (generalized anxiety disorder) F41.1 [place] [address] [facility] [id number] [address] [place] [phone] Mar, Severe episode of recurrent major depressive disorder, without 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 ; Mixed obsessional thoughts and acts F42.2 ; DANIELA (generalized anxiety disorder) F41.1 and Borderline personality disorder F60.3 [facility] [address] [place] [id number] [address] [place] [address] [id number] Mar, Dental examination Z01.20 an d Caries K02.9 [facility] [id number] [place] [address] [id number] Mar, Benign essential hypertension I10 and Fa lling episodes R29.6 [facility] [address] [facility] [id number] [address] [place] [phone] Mar, [place] [address] [facility] [id number] [address] [place] [phone] Mar, Severe episode of recurrent major depressive disorder, without 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 ; Mixed obsessional thoughts and acts F42.2 ; Borderline personality disorder F60.3 and DANIELA (generalized anxiety disorder) F41.1 [place] [address] [facility] [id number] [address] [place] [phone] Mar, [facility] [address] [facility] [id number] [address] [place] [phone] Mar, [facility] [address] [id number], [place] [id number] Mar, [facility] [address] [facility] [id number] [address] [place] [phone] Mar, Severe episode of recurrent major depressive disorder, without 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 ; Mixed obsessional thoughts and acts F42.2 ; Borderline personality disorder F60.3 and DANIELA (generalized anxiety disorder) F41.1 [facility] [address] [facility] [id number] [address] [place] [phone] Mar, [facility] [address] [id number] [address] [place] [address] [id number] Feb, Dental examination Z01.20 an d Periodontitis K05.30 [facility] [address] [facility] [id number] [address] [place] [id number] Feb, DANIELA (generalized anxiety dis order) F41.1 ; Severe episode of recurrent major depressive disorder, without 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 ; Mixed obsessional thoughts and acts F42.2 and Borderline personality disorder F60.3 [facility] [address] [id number], [place] [id number] Feb, Acute pain of right knee M25.561 ; Fall, initial encounter W19.XXXA ; Benign essential hypertension I10 and Edema R60.9 [facility] [address] [facility] [id number] [address] [place] [phone] Feb, [facility] [address] [facility] [id number] [address] [place] [phone] Feb, DANIELA (generalized anxiety dis order) F41.1 ; Severe episode of recurrent major depressive disorder, without 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 ; Mixed obsessional thoughts and acts F42.2 and Borderline personality disorder F60.3 [facility] [address] [facility] [id number] [address] [place] [phone] Feb, [facility] [address] [facility] [id number] [address] [place] [phone] Jan, [facility] [address] [facility] [id number] [address] [place] [phone] Jan, [facility] [address] [facility] [id number] [address] [place] [phone] Jan, [facility] [address] [facility] [address] [id number] [place] [address] [id number] Jan, Callus of heel L84 ; Fissure in skin R23 .4 and Hammer toe of second toe of right foot M20.41 [facility] [address] [place] [address] [id number] [place] [address] [id number] Jan, [facility] [address] [place] [id number] [address] [place] [phone] Jan, [facility] [address] [place] [id number] [place] [phone] Jan, [place] [address] [address] Jan, Severe episode of recurrent major depressive disorder, without 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 ; DANIELA (generalized anxiety disorder) F41.1 ; Mixed obsessional thoughts and acts F42.2 and Borderline personality disorder F60.3 [facility] [address] [place] [phone] Jan, [facility] [address] [place] [address] [id number] [place] [address] [id number] Jan, Benign essential hypertension I10 [facility] [address] [place] [address] [id number] [place] [address] [id number] Dec, Callous ulcer, limited to breakdown of s kin L98.491 and Morbid obesity E66.01 [facility] [address] [facility] [id number] [address] [place] [phone] Dec, [facility] [address] [place] [id number] [address] [place] [phone] Dec, [facility] [address] [place] [id number] [address] [place] [phone] Dec, [facility] [address] [facility] [id number] [address] [place] [phone] Dec, [facility] [address] [facility] [id number] [address] [place] [phone] Dec, Severe episode of recurrent major depressive disorder, without 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 [facility] [address] [facility] [id number] [address] [place] [phone] Dec, DANIELA (generalized anxiety dis order) F41.1 ; Severe episode of recurrent major depressive disorder, without 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 ; Mixed obsessional thoughts and acts F42.2 and 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 [facility] [address] [id number], [place] [id number] Dec, Morbid obesity E66.01 [facility] [address] [facility] [id number] [address] [place] [phone] Dec, [facility] [address] [facility] [id number] [address] [place] [phone] Dec, [facility] JENNY [address] [id number] [address] Nov, [facility] [address] [id number], [place] [id number] Nov, [facility] [address] [facility] [id number] [address] [place] [phone] Nov, [facility] [address] [facility] [id number] [address] [place] [phone] Nov, [facility] [address] [facility] [id number] [address] [place] [phone] Nov, DANIELA (generalized anxiety dis order) F41.1 ; Severe episode of recurrent major depressive disorder, without 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 ; Mixed obsessional thoughts and acts F42.2 and 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 [facility] [address] [id number], [place] [id number] Nov, Morbid obesity E66.01 [facility] [address] [facility] [id number] [address] [place] [phone] Nov, [facility] [address] [facility] [id number] [address] [place] [phone] Nov, DANIELA (generalized anxiety dis order) F41.1 ; Mixed obsessional thoughts and acts F42.2 ; Severe episode of recurrent major depressive disorder, without 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 and 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 [facility] [address] [id number], [place] [id number] October, Morbid obesity E66.01 [facility] [address] [id number], [place] [id number] October, Benign essential hypertension I10 and Mo rbid obesity E66.01 [facility] [address] [id number], [place] [id number] October, [facility] [address] [place] [id number] [address] [place] [phone] October, Severe episode of recurrent major depressive disorder, without 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 [facility] [address] [id number], [place] [id number] October, Morbid obesity E66.01 [facility] [address] [id number], [place] [id number] October, [facility] [address] [facility] [id number] [address] [place] [id number] October, Severe episode of recurrent major depressive disorder, without 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 ; DANIELA (generalized anxiety disorder) F41.1 ; Mixed obsessional thoughts and acts F42.2 and 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 [facility] [address] [id number], [place] [id number] October, Morbid obesity E66.01 [facility] [address] [id number] [address] [place] [address] [id number] Sep, Dental examination Z01.20 [facility] [address] [id number], [place] [id number] Sep, [facility] [address] [facility] [id number] [place] [address] Sep, Sore in mouth K13.79 and Mor bid obesity E66.01 [facility] [address] [facility] [id number] [address] [place] [phone] Sep, Dental examination Z01.20 [facility] [address] [facility] [id number] [address] [place] [phone] Sep, Anxiety disorder, unspecifie d F41.[id number] [place] [address] [id number] Sep, Mouth ulcer K12.1 [facility] [address] [id number] [place] [address] [id number] Sep, Morbid obesity E66.01 [facility] [address] [id number] [place] [address] [id number] Sep, Allergic rhinitis, unspecified seasonali ty, unspecified trigger J30.9 and Shortness of breath R06.02 [facility] [address] [id number], [place] [id number] Sep, 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 [facility] [address] [id number], [place] [id number] Aug, Mouth abscess K12.2 ; Mouth ulcer K12.1 ; Bloating R14.0 and Morbid obesity E66.01 [facility] [address] [id number], [place] [id number] Aug, [facility] [employer] [address] [id number], [place] [id number] Aug, [facility] [address] [address] [id number] [id number] Jul, Major depressive disorder, recurrent, mo derate F33.1 ; Abscess of arm, left L02.414 ; BMI 45.0-49.9, adult Z68.42 and Morbid obesity E66.01 [facility] [address] [id number][place] [id number] Jul, [facility] [address] [id number][place] [id number] Jul, [facility] [address] [id number][place] [id number] Jun, Pain in right knee M25.561 and Other chr onic pain G89.[address] [id number], [place] [id number] Jun, Benign essential hypertension I10 ; BMI 45.0-49.9, adult Z68.42 ; Morbid obesity E66.01 ; Vitamin D deficiency E55.9 ; Insomnia G47.00 ; 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 ; Edema R60.9 ; Recurrent major depressive disorder, in partial remission F33.41 ; Chronic fatigue R53.82 ; Acute pain of right knee M25.561 ; Metabolic syndrome E88.81 and Irritable mood R45.4 [place] [id number] [place] [id number] [address] [place] [phone] 16 Jun, 2018 [facility] [address] [id number], [place] [id number] Jun, Irritable mood R45.4 [facility] [address] [place] [id number] [address] [place] [phone] May, [facility] [address] [place] [id number] [address] [place] [phone] May, [facility] [address] [place] [id number] [address] [place] [id number] May, Recurrent major depressive d isorder, in partial remission F33.41 ; Mixed obsessional thoughts and acts F42.2 ; 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 and BMI 45.0-49.9, adult Z68.42 [facility] [address] [place] [id number] [address] [place] [id number] Apr, [facility] [address] [facility] [id number] [address] [place] [phone] Apr, [facility] [address] [place] [id number] [address] [place] [phone] Apr, [facility] [address] [place] [id number] [address] [place] [phone] Apr, [facility] [address] [place] [id number] [address] [place] [phone] Mar, Mixed obsessional thoughts a nd acts F42.2 ; Recurrent major depressive disorder, in partial remission F33.41 ; DANIELA (generalized anxiety disorder) F41.1 and BMI 45.0-49.9, adult Z68.[address] [place] [id number] [place] [id number] Mar, [id number] [place] [address] [id number] Mar, BMI 45.0-49.9, adult Z68.42 ; Instabilit y of right knee joint M25.361 and Rash R21 [place] [address] [place] [id number] [address] [place] [id number] Jan, Recurrent major depressive d isorder, in partial remission F33.41 ; Mixed obsessional thoughts and acts F42.2 and BMI 45.0-49.9, adult Z68.[address] [place] [id number] [place] [address] [id number] Jan, [place] [id number] [place] [address] [id number] Jan, Benign essential hypertension I10 ; BMI 45.0-49.9, adult Z68.42 ; Metabolic syndrome E88.81 and Allergic rhinitis, unspecified seasonality, unspecified trigger J30.9 [facility] [address] [facility] [id number] [address] [place] [phone] Dec, DANIELA (generalized anxiety dis order) F41.1 and Depressive disorder, not elsewhere classified F32.[address] [id number] [place] [id number] Dec, Recurrent major depressive disorder, in partial remission F33.[address] [id number] [place] [id number] Dec, [facility] [address] [id number], [place] [id number] Nov, [facility] [address] [id number], [place] [id number] Nov, Recurrent major depressive disorder, in partial remission F33.41 [facility] [address] [facility] [id number] [address] [place] [phone] Nov, Recurrent major depressive d isorder, in partial remission F33.41 ; Mixed obsessional thoughts and acts F42.2 ; DANIELA (generalized anxiety disorder) F41.1 and BMI 45.0-49.9, adult Z68.42 [facility] [address] [id number] [place] [id number] Nov, [facility] [address] [id number], [place] [id number] Nov, Other conjunctivitis of both eyes H10.89 and Sciatica, right side M54.31 [facility] [address] [id number], [place] [id number] Nov, [facility] [address] [id number], [place] [id number] Nov, [facility] [address] [id number], [place] [id number] October, [facility] [address] [id number], [place] [id number] October, [facility] [address] [facility] [id number] [address] [place] [id number] October, BMI 45.0-49.9, adult Z68.42 ; Mixed obsessional thoughts and acts F42.2 ; Recurrent major depressive disorder, in partial remission F33.41 and DANIELA (generalized anxiety disorder) F41.1 [facility] [address] [id number], [place] [id number] October, Benign essential hypertension I10 ; Morb id obesity E66.01 and BMI 45.0-49.9, adult Z68.[address] [id number] [place] [address] [id number] Sep, [facility] [address] [id number] [place] [address] [id number] Sep, [facility] [address] [id number] [place] [address] [id number] Sep, [facility] [address] [id number] [place] [address] [id number] Sep, Hospital discharge follow-up Z09 ; Aller gic rhinitis, unspecified seasonality, unspecified trigger J30.9 and Shortness of breath R06.02 [facility] [address] [id number], [place] [id number] Sep, Recurrent major depressive disorder, in partial remission F33.[address] [id number] [place] [address] [id number] Aug, Irritable mood R45.4 [place] [address] [place] [id number] [address] [place] [phone] Aug, [facility] [address] [id number] [place] [address] [id number] Jul, Benign essential hypertension I10 ; Robert a R60.9 and Impacted cerumen of left ear H61.22 [place] [address] [phone] Jul, Major depression F32.9 ; Rec urrent major depressive disorder, in partial remission F33.41 and Anxiety F41.9 [place] [address] [phone] Jun, Major depression F32.9 ; Rec urrent major depressive disorder, in partial remission F33.41 and Anxiety F41.9 [facility] [address] [id number], [place] [id number] Jun, Major depression F32.9 ; Morbid obesity E66.01 ; Irritable mood R45.4 ; Hand weakness R29.898 and Vitamin D deficiency E55.9 [facility] [address] [id number], [place] [id number] Jun, [place] [address] [id number], [place] [id number] May, Major depression F32.9 [place] [address] [facility] [id number] [address] [place] [phone] May, Major depression F32.[address] [id number], [place] [id number] May, BMI 50.0-59.9, adult Z68.43 ; Major depr ession F32.9 ; Anxiety F41.9 ; Hypertrophic toenail L60.2 and Pain of left great toe M79.[address] [place] [address] [id number], [place] [id number] May, Recurrent major depressive disorder, in partial remission F33.41 [place] [address] [place] [id number] [address] [place] [phone] Apr, [facility] [address] [id number], [place] [id number] Apr, [facility] [address] [facility] [id number] [address] [place] [id number] Apr, Major depression F32.9 [facility] [address] [id number], [place] [id number] Apr, Severe episode of recurrent major depres sive disorder, without 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 ; Anxiety F41.9 and Insomnia G47.00 [facility] [address] [id number], [place] [id number] Apr, [facility] [address] [facility] [id number] [address] [place] [phone] Apr, [facility] [address] [id number], [place] [id number] Apr, [facility] [address] [id number], [place] [id number] Mar, [facility] [address] [id number], [place] [id number] Mar, Allergic conjunctivitis of both eyes H10 .13 [facility] [address] [facility] [id number] [address] [place] [phone] Mar, Major depression F32.9 [facility] [address] [id number], [place] [id number] Mar, Metabolic syndrome E88.81 ; History of g astric bypass Z98.890 ; Benign essential hypertension I10 ; Allergic conjunctivitis of both eyes H10.13 and Morbid obesity E66.01 [facility] [address] [facility] [id number] [address] [place] [id number] Mar, Major depression F32.9 [facility] [address] [id number], [place] [id number] Feb, [facility] [address] [facility] [id number] [address] [place] [phone] Feb, Major depression F32.9 [facility] [address] [id number], [place] [id number] Feb, Subacute maxillary sinusitis J01.00 and Bronchitis J40 [facility] [address] [facility] [id number] [address] [place] [phone] Feb, Major depressive disorder, r ecurrent, moderate F33.1 [facility] [address] [id number], [place] [id number] Jan, [facility] [address] [id number], [place] [id number] Jan, Acute non-recurrent maxillary sinusitis J01.00 and Skin tag L91.8 [facility] [place] [place] [address] AVE [id number], [place] [id number] Jan, Cough R05 and Sinus congestion R09.81 [facility] [address] [id number], [place] [id number] Jan, [facility] [address] [id number], [place] [id number] Jan, Benign essential hypertension I10 ; Hist ory of gastric bypass Z98.890 and Nausea and vomiting in adult R11.2 [place] [id number] [place] [phone] 04 Jan, 2017 Major depressive disorder, r ecurrent, moderate F33.1 [place] [address] [place] [id number] [address] [place] [id number] 12 Dec, 2016 Insomnia G47.00 ; Recurrent major depressive disorder, in partial remission F33.41 and Morbid obesity E66.01 [facility] [address] [id number], [place] [id number] Dec, [facility] [address] [id number], [place] [id number] Dec, Chronic bacterial conjunctivitis of left eye H10.402 [facility] [address] [id number], [place] [id number] Nov, [facility] [address] [id number], [place] [id number] Nov, Dental examination Z01.20 [facility] [id number] [place] [address] [id number] Nov, Benign essential hypertension I10 ; Hist ory of gastric bypass Z98.890 and Nausea and vomiting in adult R11.2 [place] [address] [place] [id number] [address] [place] [id number] Nov, Major depressive disorder, r ecurrent, moderate F33.1 ; Generalized anxiety disorder F41.1 and Insomnia due to other mental disorder F51.05 [place] [address] [facility] [id number] [address] [place] [phone] Nov, Recurrent major depressive d isorder, in partial remission F33.41 ; Insomnia G47.00 and Morbid obesity E66.01 [facility] [address] [id number] [place] [id number] October, Abscess of left arm L02.414 [place] [address] [facility] [id number] [address] [place] [id number] October, Morbid obesity E66.01 ; Lida r depression F32.9 and Recurrent major depressive disorder, in partial remission F33.41 [facility] [address] [id number], [place] [id number] Sep, Benign essential hypertension I10 ; Morb id obesity E66.01 ; S/P gastric bypass Z98.84 ; Abscess L02.91 and Chronic bacterial conjunctivitis of left eye H10.402 [facility] [id number] [place] [address] [id number] Sep, Dental examination Z01.20 [place] [address] [facility] [id number] [address] [place] [id number] Sep, Morbid obesity E66.01 ; Lida r depression F32.9 and Recurrent major depressive disorder, in partial remission F33.41 [place] [address] [facility] [id number] [address] [place] [id number] Jul, [place] [address] [facility] [id number] [address] [place] [phone] Jul, Major depressive disorder, r ecurrent, moderate F33.1 [place] [address] [facility] [id number] [address] [place] [id number] Jul, Major depressive disorder, r ecurrent, moderate F33.1 and Generalized anxiety disorder F41.1 [facility] [address] [id number], [place] [id number] Jul, Cough R05 [facility] [address] [facility] [id number] [address] [place] [phone] Jul, Morbid obesity E66.01 ; Lida r depression F32.9 and Recurrent major depressive disorder, in partial remission F33.41 [facility] [address] [id number], [place] [id number] Jul, [facility] [address] [id number], [place] [id number] Jul, [place] [address] [id number] [place] [address] [id number] Jul, Gastroenteritis K52.9 and Cough R05 [address] [id number] [place] [address] [id number] Jun, Acute bacterial conjunctivitis of left e ye H10.32 [facility] [address] [place] [id number] [address] [place] [id number] Jun, [place] [address] [address] Jun, Recurrent major depressive d isorder, in partial remission F33.41 [facility] [address] [place] [id number] [address] [place] [phone] May, Major depression F32.9 and M orbid obesity E66.01 [facility] [address] [place] [id number] [address] [place] [phone] May, [facility] [address] [facility] [id number] [place] [address] [id number] May, Thrush B37.0 [facility] [address] [place] [id number] [address] [place] [phone] Apr, Major depressive disorder, r ecurrent, moderate F33.1 [facility] [address] [place] [id number] [address] [place] [id number] 15 Apr, 2016 Insomnia G47.00 ; Major depr ession F32.9 and Recurrent major depressive disorder, in partial remission F33.41 [facility] [address] [facility] [id number] [address] [place] [phone] Apr, [place] [address] [facility] [id number] [address] [place] [phone] Apr, Major depression F32.9 and R ecurrent major depressive disorder, in partial remission F33.[address] [place] [address] [id number], [place] [id number] Mar, Benign essential hypertension I10 ; Morb id obesity E66.01 ; Impacted cerumen of both ears H61.23 ; Laceration of finger of right hand, initial encounter S61.219A and Encounter for immunization Z23 [facility] [address] [facility] [id number] [address] [place] [phone] 17 Mar, 2016 [place] [address] [facility] [id number] [address] [place] [phone] Mar, [place] [address] [facility] [id number] [address] [place] [phone] Mar, [address] [id number], [place] [id number] Feb, Nausea R11.0 ; Blood in the stool K92.1 and Benign essential hypertension I10 [place] [address] [facility] [id number] [address] [place] [phone] Feb, Major depression F32.9 and R ecurrent major depressive disorder, in partial remission F33.41 [facility] [address] [id number], [place] [id number] Feb, [place] [address] [id number], [place] [id number] Feb, Recurrent major depressive disorder, in partial remission F33.41 [facility] [address] [id number], [place] [id number] Jan, [facility] [address] [id number], [place] [id number] Jan, Benign essential hypertension I10 ; Robert a R60.9 and Hyperlipidemia, unspecified hyperlipidemia type E78.5 [facility] [address] [id number], [place] [id number] Jan, Recurrent major depressive disorder, in partial remission F33.41 [facility] [address] [id number] [place] [id number] Jan, [facility] [address] [id number], [place] [id number] Jan, [facility] [address] [id number], [place] [id number] Jan, [facility] [address] [facility] [id number] [address] [place] [phone] Jan, [facility] [address] [facility] [id number] [address] [place] [phone] Dec, [facility] [address] [facility] [id number] [address] [place] [phone] Nov, [facility] [address] [facility] [id number] [address] [place] [phone] Nov, Major depression F32.9 [facility] [address] [facility] [id number] [address] [place] [id number] Nov, [facility] [address] [facility] [id number] [address] [place] [id number] Nov, [facility] [address] [facility] [id number] [address] [place] [phone] Nov, Major depressive disorder, r ecurrent episode, mild F33.0 and Anxiety F41.9 [facility] [address] [id number], [place] [id number] Nov, [facility] [address] [id number], [place] [id number] October, Left elbow pain M25.522 and Other season al allergic rhinitis J30.2 [facility] [address] [facility] [address] [id number], [place] [id number] October, [facility] [address] [facility] [id number] [address] [place] [id number] October, Major depressive disorder, r ecurrent, moderate F33.1 [facility] [address] [facility] [id number] [address] [place] [phone] October, Major depression F32.9 [facility] [address] [facility] [id number] [address] [place] [id number] Sep, Griffin or callus L84 and Onych omycosis B35.1 [facility] [address] [facility] [id number] [address] [place] [phone] Sep, Major depressive disorder, r ecurrent, moderate F33.1 [facility] [address] [facility] [id number] [address] [place] [id number] Sep, Major depression F32.9 [facility] [address] [facility] [id number] [address] [place] [phone] Sep, Moderate episode of recurren t major depressive disorder F33.1 [facility] [address] [place] [address] AVE [id number], [place] [id number] Sep, Muscle strain T14.8 [facility] [address] [facility] [id number] [address] [place] [phone] Aug, Major depression F32.9 [facility] [address] [facility] [id number] [address] [place] [id number] Aug, Major depression F32.9 [facility] [address] [facility] [id number] [address] [place] [phone] Jul, Morbid obesity E66.01 and Ma cora depression F32.9 [facility] [address] [facility] [id number] [address] [place] [phone] Jul, Depression, major, recurrent , moderate F33.[address] [id number], [place] [id number] Jul, [facility] [address] [facility] [id number] [address] [place] [phone] Jul, [facility] [address] [facility] [id number] [address] [place] [phone] Jul, Major depression F32.9 and M orbid obesity E66.[address] [id number], [place] [id number] Jul, Type II diabetes mellitus E11.9 ; Callus of foot L84 ; Benign essential hypertension I10 and Renal insufficiency N28.9 [facility] [address] [facility] [id number] [address] [place] [id number] 09 Jul, 2015 Depression, major, recurrent , moderate F33.1 [facility] [address] [facility] [id number] [address] [place] [phone] Jul, Major depression F32.9 [facility] [address] [place] [id number] [address] [place] [id number] Jul, [facility] [address] [facility] [id number] [address] [place] [id number] Jun, Major depression F32.9 [facility] [address] [facility] [id number] [address] [place] [phone] Jun, Major depressive disorder, r ecurrent, moderate F33.1 [facility] [address] [facility] [id number] [address] [place] [id number] Jun, [place] [address] [facility] [id number] [address] [place] [id number] Jun, Major depressive disorder, r ecurrent, moderate F33.1 and Major depression F32.[address] [id number], [place] [id number] Jun, Type II diabetes mellitus E11.9 [place] [address] [facility] [id number] [address] [place] [phone] Jun, Depression, major, recurrent , moderate F33.1 [place] [address] [facility] [id number] [address] [place] [phone] May, Major depressive disorder, r ecurrent, moderate F33.1 [place] [address] [facility] [id number] [address] [place] [id number] May, [place] [address] [id number], [place] [id number] May, Edema R60.9 [place] [address] [address] [facility] [id number] [address] [place] [phone] May, Insomnia G47.00 and Major de pression F32.[address] [place] [id number] [place] [id number] May, Morbid obesity E66.01 ; Edema R60.9 ; Sh ortness of breath R06.02 ; Benign essential hypertension I10 and Renal insufficiency N28.[address] [place] [id number] [place] [id number] May, Hyperlipemia 272.4 and Renal insufficien cy N28.9 [place] [address] [address] [facility] [id number] [address] [place] [id number] Apr, Major depression F32.9 [place] [address] [address] [facility] [id number] [address] [place] [phone] Apr, [place] [address] [address] [facility] [id number] [address] [place] [phone] Apr, Major depressive disorder, r ecurrent, moderate F33.[address] [place] [address] [id number] [id number] Apr, Type II diabetes mellitus E11.9 ; Benign essential hypertension I10 ; Edema R60.9 and Renal insufficiency N28.9 [place] [id number] [facility] [id number] [address] [place] [id number] Mar, Major depressive disorder, r ecurrent, moderate F33.1 [facility] [address] [facility] [id number] [address] [place] [phone] Mar, [facility] [address] [facility] [id number] [address] [place] [phone] Mar, Major depression F32.9 [facility] [id number] [place] [id number] Mar, Morbid obesity E66.01 ; Benign essential hypertension I10 and Type II diabetes mellitus E11.9 [place] [address] [address] [facility] [id number] [address] [place] [id number] Feb, Major depressive disorder, r ecurrent, moderate F33.1 [place] [address] [address] [place] [id number] [address] [place] [phone] Feb, Major depressive disorder, r ecurrent episode, in partial or unspecified remission 296.35 ; Anxiety state, unspecified 300.00 and Morbid obesity 278.01 [place] [address] [place] [id number] [address] [place] [id number] Feb, [place] [id number] [place] [address] [id number] Feb, Vomiting 787.03 and Viral syndrome 079.9 9 [place] [address] [place] [id number] [address] [place] [id number] 15 Feb, 2015 Major depression, recurrent 296.30 ; Generalized anxiety disorder 300.02 and No condition on [place] II V71.09 [facility] [id number] [place] [address] [id number] Feb, Skin tag 701.9 [facility] [address] [facility] [id number] [address] [place] [address] Feb, [place] [address] [place] [id number] [address] [place] [address] Jan, Depression, major, recurrent , moderate 296.[address] [id number] [id number] Jan, Nausea and vomiting 787.01 ; Rib pain on right side 786.50 and Fall on or from sidewalk curb E880.1 [facility] [address] [facility] [id number] [address] [place] [id number] Jan, [facility] [address] [place] [id number] [address] [place] [id number] Jan, Major depressive disorder, r ecurrent episode, in partial or unspecified remission 296.35 and Anxiety state, unspecified 300.[address] [id number] [id number] Jan, [facility] [address] [facility] [id number] [address] [place] [address] Jan, Depression, major, recurrent , moderate 296.32 [facility] [address] [facility] [id number] [address] [place] [id number] Jan, Major depression, recurrent 296.30 ; No condition on [place] II V71.09 and No condition on axis III V71.[address] [id number][place] [id number] Jan, Drug-induced nausea and vomiting 787.01 [facility] [address] [facility] [id number] [address] [place] [address] Jan, Depression, major, recurrent , moderate 296.32 [place] [address] [facility] [id number] [address] [place] [address] Dec, Depression, major, recurrent , moderate 296.[address] [id number][place] [id number] Dec, Morbid obesity 278.01 ; Metabolic syndro me 277.7 ; Hyperlipemia 272.4 ; Benign essential hypertension 401.1 ; Dietary counseling V65.3 ; Exercise counseling V65.41 and Inflamed skin tag 701.9 [place] [id number] [id number] Dec, Depression, major, recurrent , moderate 296.32 [place] [address] [address] Dec, [place] [address] [address] Dec, Major depression, recurrent 296.30 ; Anxiety, generalized 300.02 and No condition on [place] II V71.09 [place] [address] [address] Dec, Depression, major, recurrent , moderate 296.32 [place] [address] [address] Dec, Major depressive disorder, r ecurrent episode, moderate 296.[address] [address] Dec, Depression, major, recurrent , moderate 296.32 [place] [address] [address] Dec, Depression, major, recurrent , moderate 296.32 [place] [address] [address] Dec, Depression, major, recurrent , moderate 296.32 [place] [address] [address] Dec, Depression, major, recurrent , moderate 296.32 [place] [address] [address] Nov, Depression, major, recurrent , moderate 296.32 [place] [address] [address] Nov, Major depression 296.20 ; So cial phobia 300.23 and No condition on [place] II V71.09 [place] [address] [place] [address] 16 Nov, 2014 Depression, major, recurrent , moderate 296.32 [facility] [address] [facility] [id number] [address] [place] [id number] 09 Nov, 2014 Major depressive disorder, r ecurrent episode, moderate 296.32 and Generalized anxiety disorder 300.02 [facility] [address] [facility] [id number] [address] [place] [address] Nov, Depression, major, recurrent , moderate 296.32 [facility] [address] [facility] [id number] [address] [place] [address] Nov, Depression, major, recurrent , moderate 296.32 [facility] [address] [place] [id number] [place] [address] October, Generalized anxiety disorder 300.02 ; No condition on [place] II V71.09 and Major depressive disorder, recurrent 296.30 [facility] [address] [place] [id number] [address] [place] [id number] Sep, [facility] [address] [place] [id number] [address] [place] [id number] Sep, [facility] [address] [place] [id number] [address] [place] [id number] Aug, [facility] [address] [place] [id number] [address] [place] [id number] Aug, [facility] [address] [place] [id number] [address] [place] [address] Aug, [facility] [address] [place] [id number] [address] [place] [id number] Aug, [facility] [address] [place] [id number] [address] [place] [id number] Aug, [facility] [address] [place] [id number] [address] [place] [address] Aug, [facility] [address] [place] [id number] [address] [place] [id number] 20 Aug, 2014 [facility] [address] [id number] [address] [place] [address], [place] [id number] 20 Aug, 2014 [facility] [place] [facility] [address] [id number] [address] [place] [address], [place] [id number] 13 Aug, 2014 [facility] [place] [facility] [address] [id number] [address] [place] [address], [place] [id number] 13 Aug, 2014 [facility] [place] [facility] [address] [id number] [address] [place] [address], [place] [id number] 13 Aug, 2014 [facility] [place] [facility] [address] [id number] [address] [place] [address], [place] [id number] Aug, [facility] [place] [facility] [address] [id number] [address] [place] [address], [place] [id number] Aug, [facility] [place] [facility] [address] [id number] [address] [place] [address], [place] [id number] Aug, [facility] [place] [facility] [address] [id number] [address] [place] [address], [place] [id number] 10 Aug, 2014 [facility] [place] [facility] [address] [id number] [address] [place] [address], [place] [id number] 10 Aug, 2014 [facility] [place] [facility] [address] [id number] [address] [place] [address], [place] [id number] Aug, [facility] [place] [facility] [address] [id number] [address] [place] [address], [place] [id number] Aug, [facility] [place] [facility] [address] [id number] [address] [place] [address], [place] [id number] 24 Jul, 2014 [facility] [place] [facility] [address] [id number] [address] [place] [address], [place] [id number] Jul, [facility] [place] [facility] [address] [id number] [address] [place] [address], [place] [id number] 16 Jul, 2014 [facility] [place] [facility] [address] [id number] [address] [place] [address], [place] [id number] 16 Jul, 2014 [facility] [place] [facility] [address] [id number] [address] [place] [address], [place] [id number] Jul, [facility] [address] [id number] [address] [place] [address], [place] [id number] Jul, [facility] [address] [id number] [address] [place] [address], [place] [id number] Jun, [facility] [address] [id number] [address] [place] [address], [place] [id number] Jun, [facility] [address] [id number] [address] [place] [address], [place] [id number] Jun, [facility] [address] [id number] [address] [place] [address], [place] [id number] Jun, [facility] [address] [id number] [address] [place] [address], [place] [id number] Jun, [facility] [address] [id number] [address] [place] [address], [place] [id number] Jun, [facility] [address] [id number] [address] [place] [address], [place] [id number] Jun, [facility] [address] [id number] [address] [place] [address], [place] [id number] Jun, [facility] [address] [id number] [address] [place] [address], [place] [id number] Jun, [facility] [address] [id number] [address] [place] [address], [place] [id number] Jun, [facility] [address] [id number] [address] [place] [address], [place] [id number] Jun, [facility] [address] [id number] [address] [place] [address], [place] [id number] Jun, [facility] [address] [id number] [place] [id number] Jun, [facility] [address] [id number] [address] [place] [address], [place] [id number] Jun, [facility] [address] [id number] [address] [place] [address], [place] [id number] Jun, [facility] [place] [facility] [address] [id number] [address] [place] [address], [place] [id number] Jun, [facility] [address] [id number] [address] [place] [address], [place] [id number] May, [facility] [place] [facility] [address] [id number] [address] [place] [address], [place] [address] May, [facility] [address] [id number] [address] [place] [address], [place] [id number] May, [facility] [place] [facility] [address] [id number] [address] [place] [address], [place] [id number] May, [facility] [place] [facility] [address] [id number] [address] [place] [address], [place] [id number] Apr, [facility] [place] [facility] [address] [id number] [address] [place] [address], [place] [id number] Apr, [facility] [place] [facility] [address] [id number] [address] [place] [address], [place] [id number] Apr, [facility] [place] [facility] [address] [id number] [address] [place] [address], [place] [id number] Apr, [facility] [place] [facility] [address] [id number] [address] [place] [address], [place] [id number] Apr, [facility] [place] [facility] [address] [id number] [address] [place] [address], [place] [id number] Apr, [facility] [place] [facility] [address] [id number] [address] [place] [address], [place] [id number] Apr, [facility] [place] [facility] [address] [id number] [address] [place] [address], [place] [id number] Apr, [facility] [place] [facility] [address] [id number] [address] [place] [address], [place] [id number] Apr, [facility] [place] [facility] [address] [id number] [address] [place] [address], [place] [id number] Apr, [facility] [place] [facility] [address] [id number] [address] [place] [address], [place] [id number] Apr, [facility] [place] [facility] [address] [id number] [address] [place] [address], [place] [id number] Apr, [facility] [place] [facility] [address] [id number] [address] [place] [address], [place] [id number] Apr, [facility] [place] [facility] [address] [id number] [address] [place] [address], [place] [id number] Apr, [facility] [place] [facility] [address] [id number] [address] [place] [address], [place] [id number] Apr, [facility] [place] [facility] [address] [id number] [address] [place] [address], [place] [id number] Apr, [facility] [place] [facility] [address] [id number] [address] [place] [address], [place] [id number] Apr, [facility] [place] [facility] [address] [id number] [address] [place] [address], [place] [id number] Apr, [facility] [place] [facility] [address] [id number] [address] [place] [address], [place] [id number] Apr, [facility] [place] [facility] [address] [id number] [address] [place] [address], [place] [id number] Apr, [facility] [place] [facility] [address] [id number] [address] [place] [address], [place] [id number] Mar, [facility] [place] [facility] [address] [id number] [address] [place] [address], [place] [id number] Mar, [facility] [place] [facility] [address] [id number] [address] [place] [address], [place] [id number] Mar, [facility] [place] [facility] [address] [id number] [address] [place] [address], [place] [id number] Mar, [facility] [place] [facility] [address] [id number] [address] [place] [address], [place] [id number] Mar, [facility] [place] [facility] [address] [id number] [address] [place] [address], [place] [id number] Mar, [facility] [place] [facility] [address] [id number] [address] [place] [address], [place] [id number] Mar, [facility] [place] [facility] [address] [id number] [address] [place] [address], [place] [id number] Mar, [facility] [place] [facility] [address] [id number] [address] [place] [address], [place] [id number] Mar, [facility] [place] [facility] [address] [id number] [address] [place] [address], [place] [id number] Mar, [facility] [place] [facility] [address] [id number] [address] [place] [address], [place] [id number] Feb, [facility] [place] [facility] [address] [id number] [address] [place] [address], [place] [id number] Feb, [facility] [place] [facility] [address] [id number] [address] [place] [address], [place] [id number] Feb, [facility] [place] [facility] [address] [id number] [address] [place] [address], [place] [id number] Feb, [facility] [place] [facility] [address] [id number] [address] [place] [address], [place] [id number] Jan, [facility] [place] [facility] [address] [id number] [address] [place] [address], [place] [id number] Jan, [facility] [place] [facility] [address] [id number] [address] [place] [address], [place] [id number] Jan, [facility] [place] [facility] [address] [id number] [address] [place] [address], [place] [id number] Jan, [facility] [place] [facility] [address] [id number] [address] [place] [address], [place] [id number] Jan, [facility] [place] [facility] [address] [id number] [address] [place] [address], [place] [id number] Jan, [facility] [place] [facility] [address] [id number] [address] [place] [address], [place] [id number] Dec, [facility] [address] [id number] [facility] [place] [id number] Dec, [facility] [place] [facility] [address] [id number] [address] [place] [address], [place] [id number] Nov, [facility] [address] [id number] [address] [place] [address], [place] [address] Nov, [facility] [place] [facility] [address] [id number] [address] [place] [address], [place] [id number] Nov, [facility] [address] [id number] [address] [place] [address], [place] [address] Nov, [facility] [address] [id number] [address] [place] [address], [place] [address] Nov, [facility] [address] [id number] [address] [place] [address], [place] [id number] Nov, [facility] [place] [facility] [address] [id number] [address] [place] [address], [place] [id number] Sep, [facility] [address] [id number] [address] [place] [address], [place] [address] Sep, [facility] [place] [facility] [address] [id number] [address] [place] [address], [place] [id number] Sep, [facility] [place] [facility] [address] [id number] [address] [place] [address], [place] [id number] Sep, [facility] [place] [facility] [address] [id number] [address] [place] [address], [place] [id number] Aug, [facility] [place] [facility] [address] [id number] [address] [place] [address], [place] [id number] Aug, [facility] [place] [facility] [address] [id number] [address] [place] [address], [place] [id number] Jul, [facility] [place] [facility] [address] [id number] [address] [place] [address], [place] [id number] Jul, [facility] [place] [facility] [address] [id number] [address] [place] [address], [place] [id number] Jun, [facility] [address] [id number] [address] [place] [address], [place] [id number] Jun, [facility] [address] [id number] [address] [place] [address], [place] [id number] Jun, [facility] [address] [id number] [address] [place] [address], [place] [id number] Jun, [facility] [address] [id number] [address] [place] [address], [place] [id number] May, [facility] [address] [id number] [address] [place] [address], [place] [id number] May, [facility] [address] [id number] [address] [place] [address], [place] [id number] May, [facility] [address] [id number] [address] [place] [address], [place] [id number] May, [facility] [address] [id number] [address] [place] [address], [place] [id number] May, [facility] [address] [id number] [address] [place] [address], [place] [id number] May, [facility] [address] [id number] [address] [place] [address], [place] [id number] Apr, [facility] [address] [id number] [address] [place] [address], [place] [id number] Apr, [facility] [address] [id number] [address] [place] [address], [place] [id number] Apr, [facility] [address] [id number] [address] [place] [address], [place] [id number] Apr, [facility] [address] [id number] [address] [place] [address], [place] [id number] Mar, [facility] [address] [id number] [address] [place] [address], [place] [id number] Mar, [facility] [address] [id number] [address] [place] [address], [place] [address] Mar, [facility] [address] [id number] [address] [place] [address], [place] [id number] Mar, [facility] [address] [id number] [address] [place] [address], [place] [id number] Feb, [facility] [address] [id number] [place] [id number] Jan, [facility] [address] [id number] [address] [place] [address], [place] [id number] Jan, [facility] [address] [id number] [address] [place] [address], [place] [id number] Dec, [facility] [address] [id number] [address] [place] [address], [place] [id number] Dec, [facility] [address] [id number] [address] [place] [address], [place] [id number] Dec, [facility] [address] [facility] [address] [id number] [place] [id number] Dec, [facility] [address] [id number] [address] [place] [address], [place] [id number] Nov, [facility] [address] [id number] [address] [place] [address], [place] [id number] Nov, [facility] [address] [id number] [address] [place] [id number] Nov, [facility] [place] [facility] [address] [id number] [address] [place] [address], [place] [id number] Nov, [facility] [place] [facility] [address] [id number] [address] [place] [address], [place] [id number] Nov, [facility] [place] [facility] [address] [id number] [address] [place] [address], [place] [id number] October, [facility] [place] [facility] [address] [id number] [address] [place] [id number] October, [facility] [address] [facility] [id number] [address] [id number] Aug, [facility] [address] [facility] [id number] [address] [place] [id number] Nov, IMMUNIZATIONS No Known Immunizations SOCIAL HISTORY [...] 04/2019 Hospitalization History gastric sleeve Hospitalization History [facility] ER Trouble with left shoulder blade 08/2017
--- OUTSIDE RECORDS SUMMARY | 2019-11-29 08:55 | XMS REPORT ---
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 Name Role Phone CHRIS DIAZ Unavailable PROBLEMS Type Condition ICD9-CM Code CUE80-EU Code Onset Dates Condition S tatus SNOMED Code Problem Edema R60.9 Active 470589634 Problem Morbid obesity E66.01 Active 77895 6002 Problem Metabolic syndrome E88.81 Active 2 15550000 Problem Renal insufficiency N28.9 Active 091212004 Problem Vitamin D deficiency E55.9 Active 94548876 Problem Severe episode of recurrent major depressive disorder, without 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 Active 66481043 Problem DANIELA (generalized anxiety disorder) F41.1 Active 56579849 Problem Mixed obsessional thoughts and acts F42.2 Active 45265840 Problem Chronic fatigue R53.82 Active 8422 9001 Problem Other chronic pain G89.29 Active 8 9066542 Problem Borderline personality disorder F60.3 Active 12083604 Problem Attachment disorder F94.1 Active Problem Sciatica, right side M54.31 Active 764252856086753 Problem Insomnia G47.00 Active 430677164 Problem Anxiety F41.9 Active 37690697 Problem BMI 45.0-49.9, adult Z68.42 Active 384412324 Problem Hyperlipemia E78.5 Active 9418532 4 Problem Benign essential hypertension I10 Active 4491623 Problem Callous ulcer, limited to breakdown of skin L98.49 1 Active Problem Hammer toe of right foot M20.41 Activ e 246445969 Problem Hammer toe of second toe of right foot M20.41 Active 861670024 Problem Falling episodes R29.6 Active 161 [id number] ALLERGIES No Information ENCOUNTERS Encounter Location Date Diagnosis [facility] [address] [facility] [id number] [address] [address] Dec, [facility] [address] [place] [id number] [address] [place] [phone] 15 Dec, [address] [facility] [address] [id number][place] [id number] 14 Dec, 2019 [facility] [address] [id number] [address] [place] [phone] Dec, [facility] [address] [id number] [address] [place] [phone] Nov, [facility] [address] [id number] [address] [place] [phone] Nov, [facility] [address] [id number] [address] [place] [phone] October, [facility] [address] [id number] [address] [place] [address] October, [facility] [address] [id number] [address] [place] [phone] October, [facility] [id number] [place] [address] [id number] Sep, [facility] [address] [id number] [address] [place] [phone] Sep, [facility] [id number] [place] [address] [id number] Sep, [facility] [address] [id number] [address] [place] [phone] 28 Sep, 2019 [facility] [address] [id number] [address] [place] [phone] 24 Sep, 2019 [facility] [address] [id number] [address] [place] [phone] Sep, [facility] [address] [id number] [address] [place] [phone] Sep, [facility] [address] [id number] [address] [place] [phone] Sep, DANIELA (generalized anxiety dis order) F41.1 ; Severe episode of recurrent major depressive disorder, without 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 ; Mixed obsessional thoughts and acts F42.2 and Borderline personality disorder F60.3 [facility] [address] [place] [address] [facility] [id number] [place] [address] Sep, Severe episode of recurrent major depres sive disorder, without 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 [facility] [address] [id number], [place] [id number] Sep, [facility] [address] [id number][place] [id number] Sep, [facility] [address] [id number], [place] [id number] Sep, Benign essential hypertension I10 [facility] [address] [facility] [id number] [address] [place] [phone] Sep, [facility] [address] [facility] [id number] [address] [place] [phone] Sep, [facility] [address] [facility] [id number] [address] [place] [phone] Sep, [facility] [address] [facility] [id number] [address] [place] [phone] Sep, DANIELA (generalized anxiety dis order) F41.1 ; Severe episode of recurrent major depressive disorder, without 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 ; Mixed obsessional thoughts and acts F42.2 and Borderline personality disorder F60.3 [facility] [address] [id number], [place] [id number] Aug, [facility] [address] [facility] [id number] [address] [place] [phone] Aug, [facility] [address] [id number], [place] [id number] Aug, [facility] [address] [facility] [id number] [address] [place] [address] Aug, [facility] [address] [id number][place] [id number] 17 Aug, 2019 Dizzy R42 ; Weight gain R63.5 ; Benign e ssential hypertension I10 ; Falling episodes R29.6 and History of gastric bypass Z98.84 [facility] [address] [id number] [address] [place] [phone] 14 Aug, 2019 [facility] [address] [address] [id number] [address] [place] [phone] 13 Aug, 2019 [facility] [address] [facility] [id number] [address] [place] [phone] 11 Aug, 2019 DANIELA (generalized anxiety dis order) F41.1 ; Severe episode of recurrent major depressive disorder, without 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 ; Mixed obsessional thoughts and acts F42.2 and Borderline personality disorder F60.[id number] [place] [address] [id number] Aug, [place] [id number] [place] [address] [id number] Aug, [place] [address] [facility] [id number] [address] [place] [phone] Aug, [id number] [place] [id number] Aug, [id number] [place] [address] [id number] Aug, [place] [address] [facility] [id number] [address] [place] [phone] Aug, [id number] [place] [address] [id number] Aug, Severe episode of recurrent major depres sive disorder, without 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 ; Borderline personality disorder F60.3 ; Anxiety F41.9 and Attachment disorder F94.1 [place] [address] [place] [id number] [address] [place] [phone] Jul, [place] [address] [facility] [id number] [address] [place] [phone] 24 Jul, 2019 DANIELA (generalized anxiety dis order) F41.1 ; Severe episode of recurrent major depressive disorder, without 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 ; Mixed obsessional thoughts and acts F42.2 and Borderline personality disorder F60.3 [place] [id number] [facility] [address] [id number][place] [id number] Jul, [facility] [address] [facility] [id number] [address] [place] [address] Jul, [facility] [address] [facility] [id number] [address] [place] [phone] 14 Jul, 2019 [facility] [address] [facility] [id number] [address] [place] [phone] 12 Jul, 2019 [facility] [address] [facility] [id number] [address] [place] [phone] Jul, [facility] [address] [facility] [id number] [address] [place] [phone] Jun, DANIELA (generalized anxiety dis order) F41.1 ; Severe episode of recurrent major depressive disorder, without 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 ; Mixed obsessional thoughts and acts F42.2 and Borderline personality disorder F60.3 [address] [id number], [place] [id number] Jun, [facility] [address] [facility] [address] [id number], [place] [id number] Jun, [facility] [address] [facility] [id number] [address] [place] [phone] Jun, [facility] [address] [facility] [id number] [address] [place] [phone] Jun, DANIELA (generalized anxiety dis order) F41.1 ; Severe episode of recurrent major depressive disorder, without 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 ; Mixed obsessional thoughts and acts F42.2 and Borderline personality disorder F60.[address] [address] [id number], [place] [id number] Jun, [facility] [address] [id number], [place] [id number] Jun, [facility] [address] [id number], [place] [id number] Jun, [facility] [place] [address] [facility] [address] [id number], [place] [id number] Jun, Benign essential hypertension I10 ; Morb id obesity E66.01 ; Severe episode of recurrent major depressive disorder, without 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 ; Excess skin L98.7 and Hyperlipemia E78.5 [place] [address] [place] [id number] [place] [phone] Jun, [place] [address] [place] [id number] [place] [phone] May, [place] [address] [phone] May, Severe episode of recurrent major depressive disorder, without 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 ; Mixed obsessional thoughts and acts F42.2 ; DANIELA (generalized anxiety disorder) F41.1 and Borderline personality disorder F60.3 [place] [address] [place] [id number] [address] [place] [phone] May, [facility] [address] [place] [id number] [address] [place] [phone] May, DANIELA (generalized anxiety dis order) F41.1 ; Severe episode of recurrent major depressive disorder, without 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 ; Mixed obsessional thoughts and acts F42.2 and Borderline personality disorder F60.3 [place] [address] [place] [id number] [address] [place] [phone] May, [facility] [address] [place] [id number] [place] [phone] May, [facility] [address] [place] [id number] [address] [place] [phone] May, Severe episode of recurrent major depressive disorder, without 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 ; Mixed obsessional thoughts and acts F42.2 ; Borderline personality disorder F60.3 and DANIELA (generalized anxiety disorder) F41.1 [facility] [address] [id number] [address] [place] [address] [id number] May, Caries K02.9 [facility] [address] [id number], [place] [id number] May, Benign essential hypertension I10 [facility] [address] [id number], [place] [id number] Apr, [facility] [address] [id number], [place] [id number] Apr, Benign essential hypertension I10 [facility] [address] [place] [id number] [address] [place] [phone] Apr, Borderline personality disor romero F60.3 ; DANIELA (generalized anxiety disorder) F41.1 ; Mixed obsessional thoughts and acts F42.2 and Severe episode of recurrent major depressive disorder, without 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 [facility] [address] [id number], [place] [id number] Apr, [facility] [address] [id number], [place] [id number] Apr, Benign essential hypertension I10 [facility] [id number] [place] [address] Apr, Severe episode of recurrent major depressive disorder, without 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 ; DANIELA (generalized anxiety disorder) F41.1 ; Borderline personality disorder F60.3 and Mixed obsessional thoughts and acts F42.2 [facility] [address] [id number] [address] [place] [address] [id number] Apr, Dental examination Z01.20 [facility] [address] [id number] [address] [place] [address] [id number] Apr, Caries K02.9 and Dental exam ination Z01.20 [facility] [address] [place] [id number] [address] [place] [address] Apr, DANIELA (generalized anxiety dis order) F41.1 ; Severe episode of recurrent major depressive disorder, without 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 ; Mixed obsessional thoughts and acts F42.2 and Borderline personality disorder F60.3 [facility] [address] [facility] [id number] [address] [place] [phone] Mar, Severe episode of recurrent major depressive disorder, without 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 ; Mixed obsessional thoughts and acts F42.2 ; Borderline personality disorder F60.3 and DANIELA (generalized anxiety disorder) F41.1 [place] [address] [facility] [id number] [address] [place] [phone] Mar, Severe episode of recurrent major depressive disorder, without 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 ; Mixed obsessional thoughts and acts F42.2 ; DANIELA (generalized anxiety disorder) F41.1 and Borderline personality disorder F60.3 [facility] [address] [place] [address] [id number] [address] [place] [address] [id number] Mar, Dental examination Z01.20 an d Caries K02.9 [facility] [id number] [place] [address] [id number] Mar, Benign essential hypertension I10 and Fa lling episodes R29.6 [facility] [address] [facility] [id number] [address] [place] [phone] Mar, [place] [address] [facility] [id number] [address] [place] [phone] Mar, Severe episode of recurrent major depressive disorder, without 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 ; Mixed obsessional thoughts and acts F42.2 ; Borderline personality disorder F60.3 and DANIELA (generalized anxiety disorder) F41.1 [place] [address] [facility] [id number] [address] [place] [phone] Mar, [facility] [address] [facility] [id number] [address] [place] [phone] Mar, [facility] [address] [id number], [place] [id number] Mar, [facility] [address] [facility] [id number] [address] [place] [phone] Mar, Severe episode of recurrent major depressive disorder, without 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 ; Mixed obsessional thoughts and acts F42.2 ; Borderline personality disorder F60.3 and DANIELA (generalized anxiety disorder) F41.1 [facility] [address] [facility] [id number] [address] [place] [address] Mar, [facility] [address] [id number] [address] [place] [address] [id number] Feb, Dental examination Z01.20 an d Periodontitis K05.30 [facility] [address] [facility] [id number] [address] [place] [phone] Feb, DANIELA (generalized anxiety dis order) F41.1 ; Severe episode of recurrent major depressive disorder, without 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 ; Mixed obsessional thoughts and acts F42.2 and Borderline personality disorder F60.3 [facility] [address] [id number], [place] [id number] Feb, Acute pain of right knee M25.561 ; Fall, initial encounter W19.XXXA ; Benign essential hypertension I10 and Edema R60.9 [facility] [address] [facility] [id number] [address] [place] [phone] Feb, [facility] [address] [facility] [id number] [address] [place] [address] Feb, DANIELA (generalized anxiety dis order) F41.1 ; Severe episode of recurrent major depressive disorder, without 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 ; Mixed obsessional thoughts and acts F42.2 and Borderline personality disorder F60.3 [facility] [address] [facility] [id number] [address] [place] [phone] Feb, [facility] [address] [facility] [id number] [address] [place] [phone] Jan, [facility] [address] [facility] [id number] [address] [place] [phone] Jan, [facility] [address] [facility] [id number] [address] [place] [phone] Jan, [facility] [address] [facility] [address] [id number] [place] [address] [id number] Jan, Callus of heel L84 ; Fissure in skin R23 .4 and Hammer toe of second toe of right foot M20.41 [facility] [address] [place] [address] A[id number] [place] [address] [id number] Jan, [facility] [address] [place] [id number] [place] [phone] Jan, [facility] [address] [place] [id number] [place] [phone] Jan, [place] [address] [address] Jan, Severe episode of recurrent major depressive disorder, without 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 ; DANIELA (generalized anxiety disorder) F41.1 ; Mixed obsessional thoughts and acts F42.2 and Borderline personality disorder F60.3 [facility] [address] [place] [address] Jan, [facility] [address] [place] [address] [id number] [place] [address] [id number] Jan, Benign essential hypertension I10 [facility] [address] [place] [address] [id number] [place] [address] [id number] Dec, Callous ulcer, limited to breakdown of s kin L98.491 and Morbid obesity E66.01 [facility] [address] [facility] [id number] [address] [place] [phone] Dec, [facility] [address] [place] [id number] [place] [phone] Dec, [facility] [address] [place] [id number] [place] [phone] Dec, [facility] [address] [facility] [id number] [address] [place] [phone] Dec, [facility] [address] [facility] [id number] [address] [place] [phone] Dec, Severe episode of recurrent major depressive disorder, without 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 [facility] [address] [facility] [id number] [address] [place] [phone] Dec, DANIELA (generalized anxiety dis order) F41.1 ; Severe episode of recurrent major depressive disorder, without 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 ; Mixed obsessional thoughts and acts F42.2 and 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 [facility] [address] [id number], [place] [id number] Dec, Morbid obesity E66.01 [facility] [address] [facility] [id number] [address] [place] [address] Dec, [facility] [address] [facility] [id number] [address] [place] [phone] Dec, [facility] JENNY [address] [id number] [address] Nov, [facility] [address] [id number], [place] [id number] Nov, [facility] [address] [facility] [id number] [address] [place] [phone] Nov, [facility] [address] [facility] [id number] [address] [place] [phone] Nov, [facility] [address] [facility] [id number] [address] [place] [phone] Nov, DANIELA (generalized anxiety dis order) F41.1 ; Severe episode of recurrent major depressive disorder, without 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 ; Mixed obsessional thoughts and acts F42.2 and 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 [facility] [address] [address] [id number], [place] [id number] Nov, Morbid obesity E66.01 [facility] [address] [facility] [id number] [address] [place] [phone] Nov, [facility] [address] [facility] [id number] [address] [place] [phone] Nov, DANIELA (generalized anxiety dis order) F41.1 ; Mixed obsessional thoughts and acts F42.2 ; Severe episode of recurrent major depressive disorder, without 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 and 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 [facility] [address] [id number], [place] [id number] October, Morbid obesity E66.01 [facility] [address] [id number], [place] [id number] October, Benign essential hypertension I10 and Mo rbid obesity E66.01 [facility] [address] [id number], [place] [id number] October, [facility] [address] [place] [id number] [place] [phone] October, Severe episode of recurrent major depressive disorder, without 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 [facility] [address] [id number], [place] [id number] October, Morbid obesity E66.01 [facility] [address] [id number], [place] [id number] October, [facility] [address] [facility] [id number] [address] [place] [phone] October, Severe episode of recurrent major depressive disorder, without 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 ; DANIELA (generalized anxiety disorder) F41.1 ; Mixed obsessional thoughts and acts F42.2 and 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 [facility] [address] [id number] [id number] October, Morbid obesity E66.01 [facility] [address] [id number] [address] [place] [id number] Sep, Dental examination Z01.20 [facility] [address] [id number] [id number] Sep, [facility] [address] [facility] [id number] [address] [address] Sep, Sore in mouth K13.79 and Mor bid obesity E66.01 [facility] [address] [facility] [id number] [address] [place] [phone] Sep, Dental examination Z01.20 [facility] [address] [facility] [id number] [address] [place] [phone] Sep, Anxiety disorder, unspecifie d F41.[id number] [place] [id number] Sep, Mouth ulcer K12.1 [id number] [place] [id number] Sep, Morbid obesity E66.01 [facility] [id number] [place] [address] [id number] Sep, Allergic rhinitis, unspecified seasonali ty, unspecified trigger J30.9 and Shortness of breath R06.02 [facility] [address] [id number], [place] [id number] Sep, 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 [facility] [address] [id number], [place] [id number] Aug, Mouth abscess K12.2 ; Mouth ulcer K12.1 ; Bloating R14.0 and Morbid obesity E66.01 [facility] [address] [id number], [place] [id number] Aug, [facility] [address] [id number], [place] [id number] Aug, [facility] [address] [id number], [place] [id number] Jul, Major depressive disorder, recurrent, mo derate F33.1 ; Abscess of arm, left L02.414 ; BMI 45.0-49.9, adult Z68.42 and Morbid obesity E66.01 [facility] [id number], [place] [id number] Jul, [facility] [address] [id number], [place] [id number] Jul, [facility] Jama [facility] [address] [id number], [place] [id number] Jun, Pain in right knee M25.561 and Other chr onic pain G89.29 [facility] [address] [id number], [place] [id number] Jun, Benign essential hypertension I10 ; BMI 45.0-49.9, adult Z68.42 ; Morbid obesity E66.01 ; Vitamin D deficiency E55.9 ; Insomnia G47.00 ; 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 ; Edema R60.9 ; Recurrent major depressive disorder, in partial remission F33.41 ; Chronic fatigue R53.82 ; Acute pain of right knee M25.561 ; Metabolic syndrome E88.81 and Irritable mood R45.4 [place] [address] [place] [id number] [place] [phone] 16 Jun, 2018 [facility] [address] [id number], [place] [id number] Jun, Irritable mood R45.4 [facility] [address] [place] [id number] [address] [place] [phone] May, [facility] [address] [place] [id number] [address] [place] [phone] May, [facility] [address] [place] [id number] [address] [place] [phone] May, Recurrent major depressive d isorder, in partial remission F33.41 ; Mixed obsessional thoughts and acts F42.2 ; 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 and BMI 45.0-49.9, adult Z68.42 [facility] [address] [place] [id number] [address] [place] [phone] Apr, [facility] [address] [facility] [id number] [address] [place] [phone] Apr, [facility] [address] [place] [id number] [address] [place] [phone] Apr, [facility] [address] [place] [id number] [address] [place] [phone] Apr, [facility] [address] [place] [id number] [address] [place] [phone] Mar, Mixed obsessional thoughts a nd acts F42.2 ; Recurrent major depressive disorder, in partial remission F33.41 ; DANIELA (generalized anxiety disorder) F41.1 and BMI 45.0-49.9, adult Z68.[address] [place] [id number] [place] [address] [id number] Mar, [id number] [place] [address] [id number] Mar, BMI 45.0-49.9, adult Z68.42 ; Instabilit y of right knee joint M25.361 and Rash R21 [place] [address] [place] [id number] [address] [place] [phone] Jan, Recurrent major depressive d isorder, in partial remission F33.41 ; Mixed obsessional thoughts and acts F42.2 and BMI 45.0-49.9, adult Z68.[id number] [place] [address] [id number] Jan, [place] [id number] [place] [address] [id number] Jan, Benign essential hypertension I10 ; BMI 45.0-49.9, adult Z68.42 ; Metabolic syndrome E88.81 and Allergic rhinitis, unspecified seasonality, unspecified trigger J30.9 [facility] [address] [facility] [id number] [address] [place] [phone] Dec, DANIELA (generalized anxiety dis order) F41.1 and Depressive disorder, not elsewhere classified F32.[address] [id number] [place], [place] [id number] Dec, Recurrent major depressive disorder, in partial remission F33.[address] [id number] [place] [id number] Dec, [facility] [address] [id number], [place] [id number] Nov, [facility] [address] [id number], [place] [id number] Nov, Recurrent major depressive disorder, in partial remission F33.41 [facility] [address] [facility] [id number] [address] [place] [phone] Nov, Recurrent major depressive d isorder, in partial remission F33.41 ; Mixed obsessional thoughts and acts F42.2 ; DANIELA (generalized anxiety disorder) F41.1 and BMI 45.0-49.9, adult Z68.42 [facility] [address] [id number] [place] [id number] Nov, [facility] [address] [id number], [place] [id number] Nov, Other conjunctivitis of both eyes H10.89 and Sciatica, right side M54.31 [facility] [address] [id number], [place] [id number] Nov, [facility] [address] [id number], [place] [id number] Nov, [facility] [address] [id number], [place] [id number] October, [facility] [address] [id number], [place] [id number] October, [facility] [address] [facility] [id number] [address] [place] [phone] October, BMI 45.0-49.9, adult Z68.42 ; Mixed obsessional thoughts and acts F42.2 ; Recurrent major depressive disorder, in partial remission F33.41 and DANIELA (generalized anxiety disorder) F41.1 [facility] [address] [id number], [place] [id number] October, Benign essential hypertension I10 ; Morb id obesity E66.01 and BMI 45.0-49.9, adult Z68.[address] [id number] [place] [address] [id number] Sep, [facility] [address] [id number] [place] [address] [id number] Sep, [facility] [address] [id number] [place] [address] [id number] Sep, [facility] [address] [id number] [place] [address] [id number] Sep, Hospital discharge follow-up Z09 ; Aller gic rhinitis, unspecified seasonality, unspecified trigger J30.9 and Shortness of breath R06.02 [facility] [address] [id number], [place] [id number] Sep, Recurrent major depressive disorder, in partial remission F33.[address] [id number] [place] [address] [id number] Aug, Irritable mood R45.4 [place] [address] [place] [id number] [address] [place] [phone] Aug, [facility] [id number] [place] [address] [id number] Jul, Benign essential hypertension I10 ; Robert a R60.9 and Impacted cerumen of left ear H61.22 [place] [address] [phone] Jul, Major depression F32.9 ; Rec urrent major depressive disorder, in partial remission F33.41 and Anxiety F41.9 [place] [address] [phone] Jun, Major depression F32.9 ; Rec urrent major depressive disorder, in partial remission F33.41 and Anxiety F41.9 [facility] [address] [id number], [place] [id number] Jun, Major depression F32.9 ; Morbid obesity E66.01 ; Irritable mood R45.4 ; Hand weakness R29.898 and Vitamin D deficiency E55.9 [facility] [address] [id number], [place] [id number] Jun, [place] [address] [id number], [place] [id number] May, Major depression F32.9 [place] [address] [facility] [id number] [address] [place] [address] May, Major depression F32.[address] [id number], [place] [id number] May, BMI 50.0-59.9, adult Z68.43 ; Major depr ession F32.9 ; Anxiety F41.9 ; Hypertrophic toenail L60.2 and Pain of left great toe M79.[address] [id number], [place] [id number] May, Recurrent major depressive disorder, in partial remission F33.41 [place] [address] [place] [id number] [address] [place] [phone] Apr, [facility] [address] [id number], [place] [id number] Apr, [facility] [address] [facility] [id number] [address] [place] [phone] Apr, Major depression F32.9 [facility] [address] [id number], [place] [id number] Apr, Severe episode of recurrent major depres sive disorder, without 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 ; Anxiety F41.9 and Insomnia G47.00 [facility] [address] [id number], [place] [id number] Apr, [facility] [address] [facility] [id number] [address] [place] [phone] Apr, [facility] [address] [id number], [place] [id number] Apr, [facility] [address] [id number], [place] [id number] Mar, [facility] [address] [id number], [place] [id number] Mar, Allergic conjunctivitis of both eyes H10 .13 [facility] [address] [facility] [id number] [address] [place] [phone] Mar, Major depression F32.9 [facility] [address] [id number], [place] [id number] Mar, Metabolic syndrome E88.81 ; History of g astric bypass Z98.890 ; Benign essential hypertension I10 ; Allergic conjunctivitis of both eyes H10.13 and Morbid obesity E66.01 [facility] [address] [facility] [id number] [address] [place] [phone] Mar, Major depression F32.9 [facility] [address] [id number], [place] [id number] Feb, [facility] [address] [facility] [id number] [address] [place] [phone] Feb, Major depression F32.9 [facility] [address] [id number], [place] [id number] Feb, Subacute maxillary sinusitis J01.00 and Bronchitis J40 [facility] [address] [facility] [id number] [address] [place] [phone] Feb, Major depressive disorder, r ecurrent, moderate F33.1 [facility] [address] [id number], [place] [id number] Jan, [facility] [address] [id number], [place] [id number] Jan, Acute non-recurrent maxillary sinusitis J01.00 and Skin tag L91.8 [facility] [place] [address] [place] [address] AVE [id number], [place] [id number] Jan, Cough R05 and Sinus congestion R09.81 [facility] [address] [id number], [place] [id number] Jan, [facility] [address] [id number], [place] [id number] Jan, Benign essential hypertension I10 ; Hist ory of gastric bypass Z98.890 and Nausea and vomiting in adult R11.2 [place] [id number] [place] [phone] 04 Jan, 2017 Major depressive disorder, r ecurrent, moderate F33.1 [place] [address] [place] [id number] [address] [place] [phone] 12 Dec, 2016 Insomnia G47.00 ; Recurrent major depressive disorder, in partial remission F33.41 and Morbid obesity E66.01 [facility] [address] [id number], [place] [id number] Dec, [facility] [address] [id number], [place] [id number] Dec, Chronic bacterial conjunctivitis of left eye H10.402 [facility] [address] [id number], [place] [id number] Nov, [facility] [address] [id number], [place] [id number] Nov, Dental examination Z01.20 [facility] [address] [id number] [place] [address] [id number] Nov, Benign essential hypertension I10 ; Hist ory of gastric bypass Z98.890 and Nausea and vomiting in adult R11.2 [place] [address] [place] [id number] [address] [place] [phone] Nov, Major depressive disorder, r ecurrent, moderate F33.1 ; Generalized anxiety disorder F41.1 and Insomnia due to other mental disorder F51.05 [place] [address] [facility] [id number] [address] [place] [phone] Nov, Recurrent major depressive d isorder, in partial remission F33.41 ; Insomnia G47.00 and Morbid obesity E66.01 [facility] [address] [id number] [place] [id number] October, Abscess of left arm L02.414 [place] [address] [facility] [id number] [address] [place] [address] October, Morbid obesity E66.01 ; Lida r depression F32.9 and Recurrent major depressive disorder, in partial remission F33.41 [facility] [address] [id number], [place] [id number] Sep, Benign essential hypertension I10 ; Morb id obesity E66.01 ; S/P gastric bypass Z98.84 ; Abscess L02.91 and Chronic bacterial conjunctivitis of left eye H10.402 [facility] [id number] [place] [address] [id number] Sep, Dental examination Z01.20 [place] [address] [facility] [id number] [address] [place] [phone] Sep, Morbid obesity E66.01 ; Lida r depression F32.9 and Recurrent major depressive disorder, in partial remission F33.41 [place] [address] [facility] [id number] [address] [place] [phone] Jul, [place] [address] [facility] [id number] [address] [place] [phone] Jul, Major depressive disorder, r ecurrent, moderate F33.1 [place] [address] [facility] [id number] [address] [place] [phone] Jul, Major depressive disorder, r ecurrent, moderate F33.1 and Generalized anxiety disorder F41.1 [facility] [address] [id number], [place] [id number] Jul, Cough R05 [facility] [address] [facility] [id number] [address] [place] [address] Jul, Morbid obesity E66.01 ; Lida r depression F32.9 and Recurrent major depressive disorder, in partial remission F33.41 [facility] [address] [id number], [place] [id number] Jul, [facility] [address] [id number], [place] [id number] Jul, [place] [address] [id number] [place] [address] [id number] Jul, Gastroenteritis K52.9 and Cough R05 [address] [id number] [place] [address] [id number] Jun, Acute bacterial conjunctivitis of left e ye H10.32 [facility] [address] [place] [id number] [address] [place] [phone] Jun, [place] [address] [address] Jun, Recurrent major depressive d isorder, in partial remission F33.41 [facility] [address] [place] [id number] [address] [place] [address] May, Major depression F32.9 and M orbid obesity E66.01 [facility] [address] [place] [id number] [address] [place] [address] May, [facility] [address] [facility] [address] [id number] [place] [address] [id number] May, Thrush B37.0 [facility] [address] [place] [id number] [address] [place] [phone] Apr, Major depressive disorder, r ecurrent, moderate F33.1 [facility] [address] [place] [id number] [address] [place] [phone] 15 Apr, 2016 Insomnia G47.00 ; Major depr ession F32.9 and Recurrent major depressive disorder, in partial remission F33.41 [facility] [address] [facility] [id number] [address] [place] [phone] Apr, [place] [address] [facility] [id number] [address] [place] [phone] Apr, Major depression F32.9 and R ecurrent major depressive disorder, in partial remission F33.[address] [id number], [place] [id number] Mar, Benign essential hypertension I10 ; Morb id obesity E66.01 ; Impacted cerumen of both ears H61.23 ; Laceration of finger of right hand, initial encounter S61.219A and Encounter for immunization Z23 [facility] [address] [facility] [id number] [address] [place] [phone] 17 Mar, 2016 [place] [address] [facility] [id number] [address] [place] [phone] Mar, [place] [address] [facility] [id number] [address] [place] [phone] Mar, [address] [id number], [place] [id number] Feb, Nausea R11.0 ; Blood in the stool K92.1 and Benign essential hypertension I10 [place] [address] [facility] [id number] [address] [place] [phone] Feb, Major depression F32.9 and R ecurrent major depressive disorder, in partial remission F33.41 [facility] [address] [id number], [place] [id number] Feb, [place] [address] [id number], [place] [id number] Feb, Recurrent major depressive disorder, in partial remission F33.41 [facility] [address] [id number], [place] [id number] Jan, [facility] [address] [id number], [place] [id number] Jan, Benign essential hypertension I10 ; Robert a R60.9 and Hyperlipidemia, unspecified hyperlipidemia type E78.5 [facility] [address] [id number], [place] [id number] Jan, Recurrent major depressive disorder, in partial remission F33.41 [facility] [address] [id number] [place] [id number] Jan, [facility] [address] [id number], [place] [id number] Jan, [facility] [address] [id number], [place] [id number] Jan, [facility] [address] [facility] [id number] [address] [place] [phone] Jan, [facility] [address] [facility] [id number] [address] [place] [address] Dec, [facility] [address] [facility] [id number] [address] [place] [phone] Nov, [facility] [address] [facility] [id number] [address] [place] [address] Nov, Major depression F32.9 [facility] [address] [facility] [id number] [address] [place] [phone] Nov, [facility] [address] [facility] [id number] [address] [place] [phone] Nov, [facility] [address] [facility] [id number] [address] [place] [phone] Nov, Major depressive disorder, r ecurrent episode, mild F33.0 and Anxiety F41.9 [facility] [address] [id number], [place] [id number] Nov, [facility] [address] [id number], [place] [id number] October, Left elbow pain M25.522 and Other season al allergic rhinitis J30.2 [facility] [address] [facility] [address] [id number], [place] [id number] October, [facility] [address] [facility] [id number] [address] [place] [phone] October, Major depressive disorder, r ecurrent, moderate F33.1 [facility] [address] [facility] [id number] [address] [place] [address] October, Major depression F32.9 [facility] [address] [facility] [id number] [address] [place] [phone] Sep, Lyons or callus L84 and Onych omycosis B35.1 [facility] [address] [facility] [id number] [address] [place] [phone] Sep, Major depressive disorder, r ecurrent, moderate F33.1 [facility] [address] [facility] [id number] [address] [place] [phone] Sep, Major depression F32.9 [facility] [address] [facility] [id number] [address] [place] [phone] Sep, Moderate episode of recurren t major depressive disorder F33.1 [facility] [address] [place] [address] AVE [id number], [place] [id number] Sep, Muscle strain T14.8 [facility] [address] [facility] [id number] [address] [place] [id number] Aug, Major depression F32.9 [facility] [address] [facility] [id number] [address] [place] [id number] Aug, Major depression F32.9 [facility] [address] [facility] [id number] [address] [place] [id number] Jul, Morbid obesity E66.01 and Ma cora depression F32.9 [facility] [address] [facility] [id number] [address] [place] [id number] Jul, Depression, major, recurrent , moderate F33.[address] [id number] [id number] Jul, [facility] [address] [facility] [id number] [address] [place] [id number] Jul, [facility] [address] [facility] [id number] [address] [place] [id number] Jul, Major depression F32.9 and M orbid obesity E66.[address] [id number] [id number] Jul, Type II diabetes mellitus E11.9 ; Callus of foot L84 ; Benign essential hypertension I10 and Renal insufficiency N28.9 [facility] [address] [facility] [id number] [address] [place] [phone] [id number] Jul, 2015 Depression, major, recurrent , moderate F33.1 [facility] [address] [facility] [id number] [address] [place] [id number] Jul, Major depression F32.9 [facility] [address] [place] [id number] [address] [place] [id number] Jul, [facility] [address] [facility] [id number] [address] [place] [id number] Jun, Major depression F32.9 [facility] [address] [facility] [id number] [address] [place] [id number] Jun, Major depressive disorder, r ecurrent, moderate F33.1 [facility] [address] [facility] [id number] [address] [place] [id number] Jun, [place] [address] [address] [facility] [id number] [address] [place] [id number] Jun, Major depressive disorder, r ecurrent, moderate F33.1 and Major depression F32.[address] [id number] [id number] Jun, Type II diabetes mellitus E11.9 [place] [address] [address] [facility] [id number] [address] [place] [address] Jun, Depression, major, recurrent , moderate F33.1 [place] [address] [address] [facility] [id number] [address] [place] [address] May, Major depressive disorder, r ecurrent, moderate F33.1 [place] [address] [address] [facility] [id number] [address] [place] [address] May, [place] [address] [id number] [id number] May, Edema R60.9 [place] [address] [address] [facility] [id number] [address] [place] [address] May, Insomnia G47.00 and Major de pression F32.[address] [place] [id number] [place] [address] [id number] May, Morbid obesity E66.01 ; Edema R60.9 ; Sh ortness of breath R06.02 ; Benign essential hypertension I10 and Renal insufficiency N28.[address] [place] [id number] [place] [address] [id number] May, Hyperlipemia 272.4 and Renal insufficien cy N28.9 [place] [address] [address] [facility] [id number] [address] [place] [address] Apr, Major depression F32.9 [place] [address] [address] [facility] [id number] [address] [place] [address] Apr, [place] [address] [address] [facility] [id number] [address] [place] [address] Apr, Major depressive disorder, r ecurrent, moderate F33.[address] [address] [id number] [id number] Apr, Type II diabetes mellitus E11.9 ; Benign essential hypertension I10 ; Edema R60.9 and Renal insufficiency N28.9 [place] [address] [facility] [id number] [address] [place] [address] Mar, Major depressive disorder, r ecurrent, moderate F33.1 [facility] [address] [facility] [id number] [address] [place] [address] Mar, [facility] [address] [facility] [id number] [address] [place] [address] Mar, Major depression F32.9 [facility] [id number] [place] [address] [id number] Mar, Morbid obesity E66.01 ; Benign essential hypertension I10 and Type II diabetes mellitus E11.9 [place] [address] [address] [facility] [id number] [address] [place] [address] Feb, Major depressive disorder, r ecurrent, moderate F33.1 [place] [address] [address] [place] [id number] [address] [place] [address] Feb, Major depressive disorder, r ecurrent episode, in partial or unspecified remission 296.35 ; Anxiety state, unspecified 300.00 and Morbid obesity 278.01 [place] [address] [address] [place] [id number] [address] [place] [address] Feb, [place] [id number] [place] [address] [id number] Feb, Vomiting 787.03 and Viral syndrome 079.9 9 [place] [address] [address] [place] [id number] [address] [place] [address] 15 Feb, 2015 Major depression, recurrent 296.30 ; Generalized anxiety disorder 300.02 and No condition on Union II V71.09 [facility] [id number] [place] [address] [id number] Feb, Skin tag 701.9 [facility] [address] [facility] [id number] [address] [place] [address] Feb, [place] [address] [address] [place] [id number] [address] [place] [address] Jan, Depression, major, recurrent , moderate 296.[address] [id number][place] [id number] Jan, Nausea and vomiting 787.01 ; Rib pain on right side 786.50 and Fall on or from sidewalk curb E880.1 [facility] [address] [facility] [id number] [address] [place] [address] Jan, [facility] [address] [place] [id number] [address] [place] [address] Jan, Major depressive disorder, r ecurrent episode, in partial or unspecified remission 296.35 and Anxiety state, unspecified 300.[address] [id number], [place] [id number] Jan, [facility] [address] [facility] [id number] [address] [place] [address] Jan, Depression, major, recurrent , moderate 296.32 [facility] [address] [facility] [id number] [address] [place] [address] Jan, Major depression, recurrent 296.30 ; No condition on Union II V71.09 and No condition on axis III V71.[address] [id number][place] [id number] Jan, Drug-induced nausea and vomiting 787.01 [facility] [address] [facility] [id number] [address] [place] [address] Jan, Depression, major, recurrent , moderate 296.32 [place] [address] [address] [facility] [id number] [address] [place] [address] Dec, Depression, major, recurrent , moderate 296.[address] [id number], [place] [id number] Dec, Morbid obesity 278.01 ; Metabolic syndro me 277.7 ; Hyperlipemia 272.4 ; Benign essential hypertension 401.1 ; Dietary counseling V65.3 ; Exercise counseling V65.41 and Inflamed skin tag 701.9 [place] [address] [address] Dec, Depression, major, recurrent , moderate 296.32 [place] [address] [address] Dec, [place] [address] [address] Dec, Major depression, recurrent 296.30 ; Anxiety, generalized 300.02 and No condition on Union II V71.09 [place] [address] [address] Dec, Depression, major, recurrent , moderate 296.32 [place] [address] [address] Dec, Major depressive disorder, r ecurrent episode, moderate 296.[address] [address] Dec, Depression, major, recurrent , moderate 296.32 [place] [address] [address] Dec, Depression, major, recurrent , moderate 296.32 [place] [address] [address] Dec, Depression, major, recurrent , moderate 296.32 [place] [address] [address] Dec, Depression, major, recurrent , moderate 296.32 [place] [address] [address] Nov, Depression, major, recurrent , moderate 296.32 [place] [address] [address] Nov, Major depression 296.20 ; So cial phobia 300.23 and No condition on Union II V71.09 [place] [address] [address] [id number] [address] 16 Nov, 2014 Depression, major, recurrent , moderate 296.32 [facility] [address] [facility] [id number] [address] [place] [address] 09 Nov, 2014 Major depressive disorder, r ecurrent episode, moderate 296.32 and Generalized anxiety disorder 300.02 [facility] [address] [facility] [id number] [address] [place] [address] Nov, Depression, major, recurrent , moderate 296.32 [facility] [address] [facility] [id number] [address] [place] [address] Nov, Depression, major, recurrent , moderate 296.32 [facility] [address] [place] [id number] [place] [address] October, Generalized anxiety disorder 300.02 ; No condition on Union II V71.09 and Major depressive disorder, recurrent 296.30 [facility] [address] [place] [id number] [address] [place] [address] Sep, [facility] [address] [place] [id number] [address] [place] [address] Sep, [facility] [address] [place] [id number] [address] [place] [address] Aug, [facility] [address] [place] [id number] [address] [place] [address] Aug, [facility] [address] [place] [id number] [address] [place] [address] Aug, [facility] [address] [place] [id number] [address] [place] [address] Aug, [facility] [address] [place] [id number] [address] [place] [address] Aug, [facility] [address] [place] [id number] [address] [place] [address] Aug, [facility] [address] [place] [id number] [address] [place] [address] 20 Aug, 2014 [facility] [address] [id number] [address] [place] [address], [place] [address] 20 Aug, 2014 [facility] [place] [facility] [address] [id number] [address] [place] [address], [place] [address] 13 Aug, 2014 [facility] [place] [facility] [address] [id number] [address] [place] [address], [place] [address] 13 Aug, 2014 [facility] [place] [facility] [address] [id number] [address] [place] [address], [place] [address] 13 Aug, 2014 [facility] [place] [facility] [address] [id number] [address] [place] [address], [place] [address] Aug, [facility] [place] [facility] [address] [id number] [address] [place] [address], [place] [address] Aug, [facility] [place] [facility] [address] [id number] [address] [place] [address], [place] [address] Aug, [facility] [place] [facility] [address] [id number] [address] [place] [address], [place] [address] 10 Aug, 2014 [facility] [place] [facility] [address] [id number] [address] [place] [address], [place] [address] 10 Aug, 2014 [facility] [place] [facility] [address] [id number] [address] [place] [address], [place] [address] Aug, [facility] [place] [facility] [address] [id number] [address] [place] [address], [place] [address] Aug, [facility] [place] [facility] [address] [id number] [address] [place] [address], [place] [address] 24 Jul, 2014 [facility] [place] [facility] [address] [id number] [address] [place] [address], [place] [address] Jul, [facility] [place] [facility] [address] [id number] [address] [place] [address], [place] [address] 16 Jul, 2014 [facility] [place] [facility] [address] [id number] [address] [place] [address], [place] [address] 16 Jul, 2014 [facility] [place] [facility] [address] [id number] [address] [place] [address], [place] [address] Jul, [facility] [address] [id number] [address] [place] [address], [place] [address] Jul, [facility] [address] [id number] [address] [place] [address], [place] [address] Jun, [facility] [address] [id number] [address] [place] [address], [place] [address] Jun, [facility] [address] [id number] [address] [place] [address], [place] [address] Jun, [facility] [address] [id number] [address] [place] [address], [place] [address] Jun, [facility] [address] [id number] [address] [place] [address], [place] [address] Jun, [facility] [address] [id number] [address] [place] [address], [place] [address] Jun, [facility] [address] [id number] [address] [place] [address], [place] [address] Jun, [facility] [address] [id number] [address] [place] [address], [place] [address] Jun, [facility] [address] [id number] [address] [place] [address], [place] [address] Jun, [facility] [address] [id number] [address] [place] [address], [place] [address] Jun, [facility] [address] [id number] [address] [place] [address], [place] [address] Jun, [facility] [address] [id number] [address] [place] [address], [place] [address] Jun, [facility] [address] [id number] [id number] Jun, [facility] [address] [id number] [address] [place] [address], [place] [address] Jun, [facility] [address] [id number] [address] [place] [address], [place] [address] Jun, [facility] [place] [facility] [address] [id number] [address] [place] [address], [place] [address] Jun, [facility] [address] [id number] [address] [place] [address], [place] [address] May, [facility] [place] [facility] [address] [id number] [address] [place] [address], [place] [address] May, [facility] [address] [id number] [address] [place] [address], [place] [address] May, [facility] [place] [facility] [address] [id number] [address] [place] [address], [place] [address] May, [facility] [place] [facility] [address] [id number] [address] [place] [address], [place] [address] Apr, [facility] [place] [facility] [address] [id number] [address] [place] [address], [place] [address] Apr, [facility] [place] [facility] [address] [id number] [address] [place] [address], [place] [address] Apr, [facility] [place] [facility] [address] [id number] [address] [place] [address], [place] [address] Apr, [facility] [place] [facility] [address] [id number] [address] [place] [address], [place] [address] Apr, [facility] [place] [facility] [address] [id number] [address] [place] [address], [place] [address] Apr, [facility] [place] [facility] [address] [id number] [address] [place] [address], [place] [address] Apr, [facility] [place] [facility] [address] [id number] [address] [place] [address], [place] [address] Apr, [facility] [place] [facility] [address] [id number] [address] [place] [address], [place] [address] Apr, [facility] [place] [facility] [address] [id number] [address] [place] [address], [place] [address] Apr, [facility] [place] [facility] [address] [id number] [address] [place] [address], [place] [address] Apr, [facility] [place] [facility] [address] [id number] [address] [place] [address], [place] [address] Apr, [facility] [place] [facility] [address] [id number] [address] [place] [address], [place] [address] Apr, [facility] [place] [facility] [address] [id number] [address] [place] [address], [place] [address] Apr, [facility] [place] [facility] [address] [id number] [address] [place] [address], [place] [address] Apr, [facility] [place] [facility] [address] [id number] [address] [place] [address], [place] [address] Apr, [facility] [place] [facility] [address] [id number] [address] [place] [address], [place] [address] Apr, [facility] [place] [facility] [address] [id number] [address] [place] [address], [place] [address] Apr, [facility] [place] [facility] [address] [id number] [address] [place] [address], [place] [address] Apr, [facility] [place] [facility] [address] [id number] [address] [place] [address], [place] [address] Apr, [facility] [place] [facility] [address] [id number] [address] [place] [address], [place] [address] Mar, [facility] [place] [facility] [address] [id number] [address] [place] [address], [place] [address] Mar, [facility] [place] [facility] [address] [id number] [address] [place] [address], [place] [address] Mar, [facility] [place] [facility] [address] [id number] [address] [place] [address], [place] [address] Mar, [facility] [place] [facility] [address] [id number] [address] [place] [address], [place] [address] Mar, [facility] [place] [facility] [address] [id number] [address] [place] [address], [place] [address] Mar, [facility] [place] [facility] [address] [id number] [address] [place] [address], [place] [address] Mar, [facility] [place] [facility] [address] [id number] [address] [place] [address], [place] [address] Mar, [facility] [place] [facility] [address] [id number] [address] [place] [address], [place] [address] Mar, [facility] [place] [facility] [address] [id number] [address] [place] [address], [place] [address] Mar, [facility] [place] [facility] [address] [id number] [address] [place] [address], [place] [address] Feb, [facility] [place] [facility] [address] [id number] [address] [place] [address], [place] [address] Feb, [facility] [place] [facility] [address] [id number] [address] [place] [address], [place] [address] Feb, [facility] [place] [facility] [address] [id number] [address] [place] [address], [place] [address] Feb, [facility] [place] [facility] [address] [id number] [address] [place] [address], [place] [address] Jan, [facility] [place] [facility] [address] [id number] [address] [place] [address], [place] [address] Jan, [facility] [place] [facility] [address] [id number] [address] [place] [address], [place] [address] Jan, [facility] [place] [facility] [address] [id number] [address] [place] [address], [place] [address] Jan, [facility] [place] [facility] [address] [id number] [address] [place] [address], [place] [address] Jan, [facility] [place] [facility] [address] [id number] [address] [place] [address], [place] [address] Jan, [facility] [place] [facility] [address] [id number] [address] [place] [address], [place] [address] Dec, [facility] [address] [id number] [facility] [place] [address] Dec, [facility] [place] [facility] [address] [id number] [address] [place] [address], [place] [address] Nov, [facility] [address] [id number] [address] [place] [address], [place] [address] Nov, [facility] [place] [facility] [address] [id number] [address] [place] [address], [place] [address] Nov, [facility] [address] [id number] [address] [place] [address], [place] [address] Nov, [facility] [address] [id number] [address] [place] [address], [place] [address] Nov, [facility] [address] [id number] [address] [place] [address], [place] [address] Nov, [facility] [place] [facility] [address] [id number] [address] [place] [address], [place] [address] Sep, [facility] [address] [id number] [address] [place] [address], [place] [address] Sep, [facility] [place] [facility] [address] [id number] [address] [place] [address], [place] [address] Sep, [facility] [place] [facility] [address] [id number] [address] [place] [address], [place] [address] Sep, [facility] [place] [facility] [address] [id number] [address] [place] [address], [place] [address] Aug, [facility] [place] [facility] [address] [id number] [address] [place] [address], [place] [address] Aug, [facility] [place] [facility] [address] [id number] [address] [place] [address], [place] [address] Jul, [facility] [place] [facility] [address] [id number] [address] [place] [address], [place] [address] Jul, [facility] [place] [facility] [address] [id number] [address] [place] [address], [place] [address] Jun, [facility] [address] [id number] [address] [place] [address], [place] [address] Jun, [facility] [address] [id number] [address] [place] [address], [place] [address] Jun, [facility] [address] [id number] [address] [place] [address], [place] [address] Jun, [facility] [address] [id number] [address] [place] [address], [place] [address] May, [facility] [address] [id number] [address] [place] [address], [place] [address] May, [facility] [address] [id number] [address] [place] [address], [place] [address] May, [facility] [address] [id number] [address] [place] [address], [place] [address] May, [facility] [address] [id number] [address] [place] [address], [place] [address] May, [facility] [address] [id number] [address] [place] [address], [place] [address] May, [facility] [address] [id number] [address] [place] [address], [place] [address] Apr, [facility] [address] [id number] [address] [place] [address], [place] [address] Apr, [facility] [address] [id number] [address] [place] [address], [place] [address] Apr, [facility] [address] [id number] [address] [place] [address], [place] [address] Apr, [facility] [address] [id number] [address] [place] [address], [place] [address] Mar, [facility] [address] [id number] [address] [place] [address], [place] [address] Mar, [facility] [address] [id number] [address] [place] [address], [place] [address] Mar, [facility] [address] [id number] [address] [place] [address], [place] [address] Mar, [facility] [address] [id number] [address] [place] [address], [place] [address] Feb, [facility] [address] [id number] [place] [id number] Jan, [facility] [address] [id number] [address] [place] [address], [place] [address] Jan, [facility] [address] [id number] [address] [place] [address], [place] [address] Dec, [facility] [address] [id number] [address] [place] [address], [place] [address] Dec, [facility] [address] [id number] [address] [place] [address], [place] [address] Dec, [facility] [address] [facility] [address] [id number] [place] [id number] Dec, [facility] [address] [id number] [address] [place] [address], [place] [address] Nov, [facility] [address] [id number] [address] [place] [address], [place] [address] Nov, [facility] [address] [id number] [address] [place] [address] Nov, [facility] [address] [id number] [address] [place] [address], [place] [address] Nov, [facility] [address] [id number] [address] [place] [address], [place] [address] Nov, [facility] [address] [id number] [address] [place] [address], [place] [address] October, [facility] [address] [id number] [address] [place] [address] October, [facility] [address] [facility] [id number] [address] [address] Aug, [facility] [address] [facility] [id number] [address] [place] [address] Nov, IMMUNIZATIONS No Known Immunizations SOCIAL HISTORY [...] 04/2019 Hospitalization History gastric sleeve Hospitalization History [facility] ER Trouble with left shoulder blade 08/2017
--- OUTSIDE RECORDS SUMMARY | 2019-11-29 08:55 | XMS REPORT ---
Author Author Curt DIAZ 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 Name Role Phone CHRIS DIAZ Unavailable PROBLEMS Type Condition ICD9-CM Code BBR26-NW Code Onset Dates Condition S tatus SNOMED Code Problem Edema R60.9 Active 080789773 Problem Morbid obesity E66.01 Active 69675 6002 Problem Metabolic syndrome E88.81 Active 2 97202735 Problem Renal insufficiency N28.9 Active 980244613 Problem Vitamin D deficiency E55.9 Active 00625514 Problem Severe episode of recurrent major depressive disorder, without 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 Active 65594868 Problem DANIELA (generalized anxiety disorder) F41.1 Active 82586408 Problem Mixed obsessional thoughts and acts F42.2 Active 77661745 Problem Chronic fatigue R53.82 Active 8422 9001 Problem Other chronic pain G89.29 Active 8 0487171 Problem Borderline personality disorder F60.3 Active 01282715 Problem Attachment disorder F94.1 Active Problem Sciatica, right side M54.31 Active 323297509435737 Problem Insomnia G47.00 Active 357279278 Problem Anxiety F41.9 Active 48782316 Problem BMI 45.0-49.9, adult Z68.42 Active 541947389 Problem Hyperlipemia E78.5 Active 5135503 4 Problem Benign essential hypertension I10 Active 4352553 Problem Callous ulcer, limited to breakdown of skin L98.49 1 Active Problem Hammer toe of right foot M20.41 Activ e 488667769 Problem Hammer toe of second toe of right foot M20.41 Active 536655917 Problem Falling episodes R29.6 Active 161 [id number] ALLERGIES No Information ENCOUNTERS Encounter Location Date Diagnosis [facility] [address] [facility] [id number] [address] [address] Dec, [facility] [address] [place] [id number] [address] [place] [phone] 15 Dec, [address] [facility] [address] [id number][place] [id number] 14 Dec, 2019 [facility] [address] [id number] [address] [place] [phone] Dec, [facility] [address] [id number] [address] [place] [address] Nov, [facility] [address] [id number] [address] [place] [address] Nov, [facility] [address] [id number] [address] [place] [phone] October, [facility] [address] [id number] [address] [place] [phone] October, [facility] [address] [id number] [address] [place] [phone] October, [facility] [id number] [place] [id number] Sep, [facility] [address] [id number] [address] [place] [address] Sep, [facility] [id number] [place] [address] [id number] Sep, [facility] [address] [id number] [address] [place] [phone] 28 Sep, 2019 [facility] [address] [id number] [address] [place] [phone] 24 Sep, 2019 [facility] [address] [id number] [address] [place] [phone] Sep, [facility] [address] [id number] [address] [place] [address] Sep, [facility] [address] [id number] [address] [place] [phone] Sep, DANIELA (generalized anxiety dis order) F41.1 ; Severe episode of recurrent major depressive disorder, without 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 ; Mixed obsessional thoughts and acts F42.2 and Borderline personality disorder F60.3 [facility] [address] [facility] [id number] [place] [address] Sep, Severe episode of recurrent major depres sive disorder, without 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 [facility] [address] [id number][place] [id number] Sep, [facility] [address] [id number], [place] [id number] Sep, [facility] [address] [id number], [place] [id number] Sep, Benign essential hypertension I10 [facility] [address] [facility] [id number] [address] [place] [phone] Sep, [facility] [address] [facility] [id number] [address] [place] [phone] Sep, [facility] [address] [facility] [id number] [address] [place] [phone] Sep, [facility] [address] [facility] [id number] [address] [place] [phone] Sep, DANIELA (generalized anxiety dis order) F41.1 ; Severe episode of recurrent major depressive disorder, without 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 ; Mixed obsessional thoughts and acts F42.2 and Borderline personality disorder F60.3 [facility] [address] [id number], [place] [id number] Aug, [facility] [address] [facility] [id number] [address] [place] [address] Aug, [facility] [address] [id number], [place] [id number] Aug, [facility] [address] [facility] [id number] [address] [place] [address] Aug, [facility] [address] [id number], [place] [id number] 17 Aug, 2019 Dizzy R42 ; Weight gain R63.5 ; Benign e ssential hypertension I10 ; Falling episodes R29.6 and History of gastric bypass Z98.84 [facility] [address] [id number] [address] [place] [phone] 14 Aug, 2019 [facility] [address] [place] [id number] [address] [place] [phone] 13 Aug, 2019 [facility] [address] [facility] [id number] [address] [place] [phone] 11 Aug, 2019 DANIELA (generalized anxiety dis order) F41.1 ; Severe episode of recurrent major depressive disorder, without 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 ; Mixed obsessional thoughts and acts F42.2 and Borderline personality disorder F60.[id number] [place] [id number] Aug, [place] [id number] [place] [address] [id number] Aug, [place] [address] [facility] [id number] [address] [place] [phone] Aug, [id number] [place] [address] [id number] Aug, [id number] [place] [address] [id number] Aug, [place] [address] [facility] [id number] [address] [place] [phone] Aug, [id number] [place] [address] [id number] Aug, Severe episode of recurrent major depres sive disorder, without 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 ; Borderline personality disorder F60.3 ; Anxiety F41.9 and Attachment disorder F94.1 [place] [address] [place] [id number] [address] [place] [phone] Jul, [place] [address] [facility] [id number] [address] [place] [phone] 24 Jul, 2019 DANIELA (generalized anxiety dis order) F41.1 ; Severe episode of recurrent major depressive disorder, without 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 ; Mixed obsessional thoughts and acts F42.2 and Borderline personality disorder F60.3 [place] [address] [facility] [address] [id number], [place] [id number] Jul, [facility] [address] [facility] [id number] [address] [place] [phone] Jul, [facility] [address] [facility] [id number] [address] [place] [phone] 14 Jul, 2019 [facility] [address] [facility] [id number] [address] [place] [phone] 12 Jul, 2019 [facility] [address] [facility] [id number] [address] [place] [phone] Jul, [facility] [address] [facility] [id number] [address] [place] [phone] Jun, DANIELA (generalized anxiety dis order) F41.1 ; Severe episode of recurrent major depressive disorder, without 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 ; Mixed obsessional thoughts and acts F42.2 and Borderline personality disorder F60.[address] [id number], [place] [id number] Jun, [facility] [address] [facility] [id number], [place] [id number] Jun, [facility] [address] [facility] [id number] [address] [place] [phone] Jun, [facility] [address] [facility] [id number] [address] [place] [phone] Jun, DANIELA (generalized anxiety dis order) F41.1 ; Severe episode of recurrent major depressive disorder, without 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 ; Mixed obsessional thoughts and acts F42.2 and Borderline personality disorder F60.[address] [place] [address] [id number][place] [id number] Jun, [facility] [address] [id number], [place] [id number] Jun, [facility] [address] [id number], [place] [id number] Jun, [facility] [address] [facility] [address] [id number], [place] [id number] Jun, Benign essential hypertension I10 ; Morb id obesity E66.01 ; Severe episode of recurrent major depressive disorder, without 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 ; Excess skin L98.7 and Hyperlipemia E78.5 [place] [address] [place] [id number] [place] [phone] Jun, [place] [address] [place] [id number] [place] [phone] May, [place] [address] [address] May, Severe episode of recurrent major depressive disorder, without 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 ; Mixed obsessional thoughts and acts F42.2 ; DANIELA (generalized anxiety disorder) F41.1 and Borderline personality disorder F60.3 [place] [address] [place] [id number] [address] [place] [phone] May, [facility] [address] [id number] [address] [place] [phone] May, DANIELA (generalized anxiety dis order) F41.1 ; Severe episode of recurrent major depressive disorder, without 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 ; Mixed obsessional thoughts and acts F42.2 and Borderline personality disorder F60.3 [place] [address] [place] [id number] [address] [place] [phone] May, [facility] [address] [place] [id number] [address] [place] [phone] May, [facility] [address] [id number] [address] [place] [phone] May, Severe episode of recurrent major depressive disorder, without 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 ; Mixed obsessional thoughts and acts F42.2 ; Borderline personality disorder F60.3 and DANIELA (generalized anxiety disorder) F41.1 [facility] [address] [id number] [address] [place] [address] [id number] May, Caries K02.9 [facility] [address] [id number], [place] [id number] May, Benign essential hypertension I10 [facility] [address] [id number], [place] [id number] Apr, [facility] [address] [id number], [place] [id number] Apr, Benign essential hypertension I10 [facility] [address] [id number] [address] [place] [phone] Apr, Borderline personality disor romero F60.3 ; DANIELA (generalized anxiety disorder) F41.1 ; Mixed obsessional thoughts and acts F42.2 and Severe episode of recurrent major depressive disorder, without 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 [facility] [address] [id number], [place] [id number] Apr, [facility] [address] [id number], [place] [id number] Apr, Benign essential hypertension I10 [facility] [address] [place] [phone] Apr, Severe episode of recurrent major depressive disorder, without 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 ; DANIELA (generalized anxiety disorder) F41.1 ; Borderline personality disorder F60.3 and Mixed obsessional thoughts and acts F42.2 [facility] [address] [id number] [address] [place] [address] [id number] Apr, Dental examination Z01.20 [facility] [address] [id number] [address] [place] [address] [id number] Apr, Caries K02.9 and Dental exam ination Z01.20 [facility] [address] [id number] [address] [place] [phone] Apr, DANIELA (generalized anxiety dis order) F41.1 ; Severe episode of recurrent major depressive disorder, without 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 ; Mixed obsessional thoughts and acts F42.2 and Borderline personality disorder F60.3 [facility] [address] [facility] [id number] [address] [place] [phone] Mar, Severe episode of recurrent major depressive disorder, without 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 ; Mixed obsessional thoughts and acts F42.2 ; Borderline personality disorder F60.3 and DANIELA (generalized anxiety disorder) F41.1 [place] [address] [facility] [id number] [address] [place] [phone] Mar, Severe episode of recurrent major depressive disorder, without 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 ; Mixed obsessional thoughts and acts F42.2 ; DANIELA (generalized anxiety disorder) F41.1 and Borderline personality disorder F60.3 [facility] [address] [place] [address] [id number] [address] [place] [address] [id number] Mar, Dental examination Z01.20 an d Caries K02.9 [facility] [id number] [place] [address] [id number] Mar, Benign essential hypertension I10 and Fa lling episodes R29.6 [facility] [address] [facility] [id number] [address] [place] [phone] Mar, [place] [address] [facility] [id number] [address] [place] [phone] Mar, Severe episode of recurrent major depressive disorder, without 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 ; Mixed obsessional thoughts and acts F42.2 ; Borderline personality disorder F60.3 and DANIELA (generalized anxiety disorder) F41.1 [place] [address] [facility] [id number] [address] [place] [phone] Mar, [facility] [address] [facility] [id number] [address] [place] [address] Mar, [facility] [address] [id number], [place] [id number] Mar, [facility] [address] [facility] [id number] [address] [place] [phone] Mar, Severe episode of recurrent major depressive disorder, without 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 ; Mixed obsessional thoughts and acts F42.2 ; Borderline personality disorder F60.3 and DANIELA (generalized anxiety disorder) F41.1 [facility] [address] [facility] [id number] [address] [place] [phone] Mar, [facility] [address] [id number] [address] [place] [address] [id number] Feb, Dental examination Z01.20 an d Periodontitis K05.30 [facility] [address] [facility] [id number] [address] [place] [phone] Feb, DANIELA (generalized anxiety dis order) F41.1 ; Severe episode of recurrent major depressive disorder, without 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 ; Mixed obsessional thoughts and acts F42.2 and Borderline personality disorder F60.3 [facility] [address] [id number], [place] [id number] Feb, Acute pain of right knee M25.561 ; Fall, initial encounter W19.XXXA ; Benign essential hypertension I10 and Edema R60.9 [facility] [address] [facility] [id number] [address] [place] [address] Feb, [facility] [address] [facility] [id number] [address] [place] [phone] Feb, DANIELA (generalized anxiety dis order) F41.1 ; Severe episode of recurrent major depressive disorder, without 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 ; Mixed obsessional thoughts and acts F42.2 and Borderline personality disorder F60.3 [facility] [address] [facility] [id number] [address] [place] [phone] Feb, [facility] [address] [facility] [id number] [address] [place] [phone] Jan, [facility] [address] [facility] [id number] [address] [place] [phone] Jan, [facility] [address] [facility] [id number] [address] [place] [phone] Jan, [facility] [address] [facility] [id number] [place] [address] [id number] Jan, Callus of heel L84 ; Fissure in skin R23 .4 and Hammer toe of second toe of right foot M20.41 [facility] [address] [place] [address] [id number] [place] [address] [id number] Jan, [facility] [address] [place] [id number] [address] [place] [phone] Jan, [facility] [address] [place] [id number] [place] [address] Jan, [place] [address] [address] Jan, Severe episode of recurrent major depressive disorder, without 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 ; DANIELA (generalized anxiety disorder) F41.1 ; Mixed obsessional thoughts and acts F42.2 and Borderline personality disorder F60.3 [facility] [address] [place] [phone] Jan, [facility] [address] [place] [address] [id number] [place] [address] [id number] Jan, Benign essential hypertension I10 [facility] [address] [place] [address] [id number] [place] [address] [id number] Dec, Callous ulcer, limited to breakdown of s kin L98.491 and Morbid obesity E66.01 [facility] [address] [facility] [id number] [address] [place] [phone] Dec, [facility] [address] [place] [id number] [place] [phone] Dec, [facility] [address] [place] [id number] [place] [phone] Dec, [facility] [address] [facility] [id number] [address] [place] [phone] Dec, [facility] [address] [facility] [id number] [address] [place] [phone] Dec, Severe episode of recurrent major depressive disorder, without 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 [facility] [address] [facility] [id number] [address] [place] [phone] Dec, DANIELA (generalized anxiety dis order) F41.1 ; Severe episode of recurrent major depressive disorder, without 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 ; Mixed obsessional thoughts and acts F42.2 and 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 [facility] [address] [id number], [place] [id number] Dec, Morbid obesity E66.01 [facility] [address] [facility] [id number] [address] [place] [phone] Dec, [facility] [address] [facility] [id number] [address] [place] [phone] Dec, [facility] JENNY [id number], [place] [address] Nov, [facility] [address] [id number], [place] [id number] Nov, [facility] [address] [facility] [id number] [address] [place] [phone] Nov, [facility] [address] [facility] [id number] [address] [place] [phone] Nov, [facility] [address] [facility] [id number] [address] [place] [address] Nov, DANIELA (generalized anxiety dis order) F41.1 ; Severe episode of recurrent major depressive disorder, without 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 ; Mixed obsessional thoughts and acts F42.2 and 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 [facility] [address] [id number], [place] [id number] Nov, Morbid obesity E66.01 [facility] [address] [facility] [id number] [address] [place] [phone] Nov, [facility] [address] [facility] [id number] [address] [place] [phone] Nov, DANIELA (generalized anxiety dis order) F41.1 ; Mixed obsessional thoughts and acts F42.2 ; Severe episode of recurrent major depressive disorder, without 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 and 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 [facility] [address] [id number], [place] [id number] October, Morbid obesity E66.01 [facility] [address] [id number], [place] [id number] October, Benign essential hypertension I10 and Mo rbid obesity E66.01 [facility] [address] [id number], [place] [id number] October, [facility] [address] [place] [id number] [address] [place] [phone] October, Severe episode of recurrent major depressive disorder, without 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 [facility] [address] [id number], [place] [id number] October, Morbid obesity E66.01 [facility] [address] [id number], [place] [id number] October, [facility] [address] [facility] [id number] [address] [place] [address] October, Severe episode of recurrent major depressive disorder, without 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 ; DANIELA (generalized anxiety disorder) F41.1 ; Mixed obsessional thoughts and acts F42.2 and 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 [facility] [address] [id number], [place] [id number] October, Morbid obesity E66.01 [facility] [address] [id number] [address] [place] [address] [id number] Sep, Dental examination Z01.20 [facility] [address] [id number], [place] [id number] Sep, [facility] [address] [facility] [id number] [place] [address] Sep, Sore in mouth K13.79 and Mor bid obesity E66.01 [facility] [address] [facility] [id number] [address] [place] [id number] Sep, Dental examination Z01.20 [facility] [address] [facility] [id number] [address] [place] [id number] Sep, Anxiety disorder, unspecifie d F41.[id number] [place] [id number] Sep, Mouth ulcer K12.1 [facility] [address] [id number] [place] [id number] Sep, Morbid obesity E66.01 [facility] [id number] [place] [id number] Sep, Allergic rhinitis, unspecified seasonali ty, unspecified trigger J30.9 and Shortness of breath R06.02 [facility] [id number][place] [id number] Sep, 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 [facility] [id number][place] [id number] Aug, Mouth abscess K12.2 ; Mouth ulcer K12.1 ; Bloating R14.0 and Morbid obesity E66.01 [facility] [address] [id number][place] [id number] Aug, [facility] [id number], [place] [id number] Aug, [facility] [address] [id number], [place] [id number] Jul, Major depressive disorder, recurrent, mo derate F33.1 ; Abscess of arm, left L02.414 ; BMI 45.0-49.9, adult Z68.42 and Morbid obesity E66.01 [facility] [address] [id number], [place] [id number] Jul, [facility] [address] [id number], [place] [id number] Jul, [facility] [address] [facility] [id number], [place] [id number] Jun, Pain in right knee M25.561 and Other chr onic pain G89.[address] [facility] [address] [id number], [place] [id number] Jun, Benign essential hypertension I10 ; BMI 45.0-49.9, adult Z68.42 ; Morbid obesity E66.01 ; Vitamin D deficiency E55.9 ; Insomnia G47.00 ; 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 ; Edema R60.9 ; Recurrent major depressive disorder, in partial remission F33.41 ; Chronic fatigue R53.82 ; Acute pain of right knee M25.561 ; Metabolic syndrome E88.81 and Irritable mood R45.4 [place] [id number] [place] [id number] [place] [phone] 16 Jun, 2018 [facility] [address] [facility] [address] [id number], [place] [id number] Jun, Irritable mood R45.4 [facility] [address] [id number] [address] [place] [phone] May, [facility] [address] [id number] [address] [place] [phone] May, [facility] [address] [id number] [address] [place] [phone] May, Recurrent major depressive d isorder, in partial remission F33.41 ; Mixed obsessional thoughts and acts F42.2 ; 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 and BMI 45.0-49.9, adult Z68.42 [facility] [address] [place] [place] [id number] [address] [place] [phone] Apr, [facility] [address] [facility] [id number] [address] [place] [phone] Apr, [facility] [address] [place] [id number] [address] [place] [phone] Apr, [facility] [address] [place] [id number] [address] [place] [phone] Apr, [facility] [address] [place] [address] [id number] [address] [place] [address] Mar, Mixed obsessional thoughts a nd acts F42.2 ; Recurrent major depressive disorder, in partial remission F33.41 ; DANIELA (generalized anxiety disorder) F41.1 and BMI 45.0-49.9, adult Z68.[id number] [place] [id number] Mar, [id number] [place] [address] [id number] Mar, BMI 45.0-49.9, adult Z68.42 ; Instabilit y of right knee joint M25.361 and Rash R21 [place] [address] [place] [id number] [address] [place] [phone] Jan, Recurrent major depressive d isorder, in partial remission F33.41 ; Mixed obsessional thoughts and acts F42.2 and BMI 45.0-49.9, adult Z68.[id number] [place] [address] [id number] Jan, [address] [place] [id number] [place] [address] [id number] Jan, Benign essential hypertension I10 ; BMI 45.0-49.9, adult Z68.42 ; Metabolic syndrome E88.81 and Allergic rhinitis, unspecified seasonality, unspecified trigger J30.9 [facility] [address] [facility] [id number] [address] [place] [phone] Dec, DANIELA (generalized anxiety dis order) F41.1 and Depressive disorder, not elsewhere classified F32.[address] [id number] [place] [id number] Dec, Recurrent major depressive disorder, in partial remission F33.[address] [id number] [place] [id number] Dec, [facility] [address] [id number], [place] [id number] Nov, [facility] [address] [id number], [place] [id number] Nov, Recurrent major depressive disorder, in partial remission F33.41 [facility] [address] [facility] [id number] [address] [place] [phone] Nov, Recurrent major depressive d isorder, in partial remission F33.41 ; Mixed obsessional thoughts and acts F42.2 ; DANIELA (generalized anxiety disorder) F41.1 and BMI 45.0-49.9, adult Z68.42 [facility] [address] [id number] [place] Fidelithon SystemsC[place] [id number] Nov, [facility] [address] [id number], [place] [id number] Nov, Other conjunctivitis of both eyes H10.89 and Sciatica, right side M54.31 [facility] [address] [id number], [place] [id number] Nov, [facility] [address] [id number], [place] [id number] Nov, [facility] [address] [id number], [place] [id number] October, [facility] [address] [id number], [place] [id number] October, [facility] [address] [facility] [id number] [address] [place] [phone] October, BMI 45.0-49.9, adult Z68.42 ; Mixed obsessional thoughts and acts F42.2 ; Recurrent major depressive disorder, in partial remission F33.41 and DANIELA (generalized anxiety disorder) F41.1 [facility] [address] [id number], [place] [id number] October, Benign essential hypertension I10 ; Morb id obesity E66.01 and BMI 45.0-49.9, adult Z68.[id number] [place] [address] [id number] Sep, [facility] [address] [id number] [place] [address] [id number] Sep, [facility] [address] [id number] [place] [address] [id number] Sep, [facility] [address] [id number] [place] [address] [id number] Sep, Hospital discharge follow-up Z09 ; Aller gic rhinitis, unspecified seasonality, unspecified trigger J30.9 and Shortness of breath R06.02 [facility] [address] [id number], [place] [id number] Sep, Recurrent major depressive disorder, in partial remission F33.[address] [id number] [place] [address] [id number] Aug, Irritable mood R45.4 [place] [address] [place] [id number] [address] [place] [phone] Aug, [facility] [address] [id number] [place] [address] [id number] Jul, Benign essential hypertension I10 ; Robert a R60.9 and Impacted cerumen of left ear H61.22 [place] [address] [address] Jul, Major depression F32.9 ; Rec urrent major depressive disorder, in partial remission F33.41 and Anxiety F41.9 [place] [address] [address] Jun, Major depression F32.9 ; Rec urrent major depressive disorder, in partial remission F33.41 and Anxiety F41.9 [facility] [address] [id number], [place] [id number] Jun, Major depression F32.9 ; Morbid obesity E66.01 ; Irritable mood R45.4 ; Hand weakness R29.898 and Vitamin D deficiency E55.9 [facility] [address] [id number], [place] [id number] Jun, [address] [place] [id number], [place] [id number] May, Major depression F32.9 [place] [address] [facility] [id number] [address] [place] [phone] May, Major depression F32.[address] [id number], [place] [id number] May, BMI 50.0-59.9, adult Z68.43 ; Major depr ession F32.9 ; Anxiety F41.9 ; Hypertrophic toenail L60.2 and Pain of left great toe M79.[address] [id number], [place] [id number] May, Recurrent major depressive disorder, in partial remission F33.41 [place] [address] [place] [id number] [place] [phone] Apr, [facility] [address] [id number], [place] [id number] Apr, [facility] [address] [facility] [id number] [address] [place] [address] Apr, Major depression F32.9 [facility] [address] [id number], [place] [id number] Apr, Severe episode of recurrent major depres sive disorder, without 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 ; Anxiety F41.9 and Insomnia G47.00 [facility] [address] [id number], [place] [id number] Apr, [facility] [address] [facility] [id number] [address] [place] [phone] Apr, [facility] [address] [id number], [place] [id number] Apr, [facility] [address] [id number], [place] [id number] Mar, [facility] [address] [id number], [place] [id number] Mar, Allergic conjunctivitis of both eyes H10 .13 [facility] [address] [facility] [id number] [address] [place] [address] Mar, Major depression F32.9 [facility] [address] [id number], [place] [id number] Mar, Metabolic syndrome E88.81 ; History of g astric bypass Z98.890 ; Benign essential hypertension I10 ; Allergic conjunctivitis of both eyes H10.13 and Morbid obesity E66.01 [facility] [address] [facility] [id number] [address] [place] [phone] Mar, Major depression F32.9 [facility] [address] [id number], [place] [id number] Feb, [facility] [address] [facility] [id number] [address] [place] [phone] Feb, Major depression F32.9 [facility] [address] [id number], [place] [id number] Feb, Subacute maxillary sinusitis J01.00 and Bronchitis J40 [facility] [address] [facility] [id number] [address] [place] [phone] Feb, Major depressive disorder, r ecurrent, moderate F33.1 [facility] [address] [id number], [place] [id number] Jan, [facility] [address] [id number], [place] [id number] Jan, Acute non-recurrent maxillary sinusitis J01.00 and Skin tag L91.8 [facility] [address] [place] [address] AVE [id number], [place] [id number] Jan, Cough R05 and Sinus congestion R09.81 [facility] [address] [id number], [place] [id number] Jan, [facility] [address] [id number], [place] [id number] Jan, Benign essential hypertension I10 ; Hist ory of gastric bypass Z98.890 and Nausea and vomiting in adult R11.2 [place] [id number] [place] [phone] 04 Jan, 2017 Major depressive disorder, r ecurrent, moderate F33.1 [place] [address] [place] [id number] [place] [phone] 12 Dec, 2016 Insomnia G47.00 ; Recurrent major depressive disorder, in partial remission F33.41 and Morbid obesity E66.01 [facility] [address] [id number], [place] [id number] Dec, [facility] [address] [id number], [place] [id number] Dec, Chronic bacterial conjunctivitis of left eye H10.402 [facility] [address] [id number], [place] [id number] Nov, [facility] [address] [id number], [place] [id number] Nov, Dental examination Z01.20 [facility] [address] [id number] [place] [address] [id number] Nov, Benign essential hypertension I10 ; Hist ory of gastric bypass Z98.890 and Nausea and vomiting in adult R11.2 [place] [address] [place] [id number] [place] [address] Nov, Major depressive disorder, r ecurrent, moderate F33.1 ; Generalized anxiety disorder F41.1 and Insomnia due to other mental disorder F51.05 [place] [address] [facility] [id number] [address] [place] [address] Nov, Recurrent major depressive d isorder, in partial remission F33.41 ; Insomnia G47.00 and Morbid obesity E66.01 [facility] [address] [id number] [place] [id number] October, Abscess of left arm L02.414 [place] [address] [facility] [id number] [address] [place] [address] October, Morbid obesity E66.01 ; Lida r depression F32.9 and Recurrent major depressive disorder, in partial remission F33.41 [facility] [address] [id number], [place] [id number] Sep, Benign essential hypertension I10 ; Morb id obesity E66.01 ; S/P gastric bypass Z98.84 ; Abscess L02.91 and Chronic bacterial conjunctivitis of left eye H10.402 [facility] [id number] [place] [address] [id number] Sep, Dental examination Z01.20 [place] [address] [facility] [id number] [address] [place] [address] Sep, Morbid obesity E66.01 ; Lida r depression F32.9 and Recurrent major depressive disorder, in partial remission F33.41 [place] [address] [facility] [id number] [address] [place] [phone] Jul, [place] [address] [facility] [id number] [address] [place] [phone] Jul, Major depressive disorder, r ecurrent, moderate F33.1 [place] [address] [facility] [id number] [address] [place] [address] Jul, Major depressive disorder, r ecurrent, moderate F33.1 and Generalized anxiety disorder F41.1 [facility] [address] [id number], [place] [id number] Jul, Cough R05 [facility] [address] [facility] [id number] [address] [place] [address] Jul, Morbid obesity E66.01 ; Lida r depression F32.9 and Recurrent major depressive disorder, in partial remission F33.41 [facility] [address] [id number], [place] [id number] Jul, [facility] [address] [id number], [place] [id number] Jul, [place] [id number] [place] [address] [id number] Jul, Gastroenteritis K52.9 and Cough R[id number] [place] [address] [id number] Jun, Acute bacterial conjunctivitis of left e ye H10.32 [facility] [address] [place] [id number] [address] [place] [address] Jun, [place] [address] [address] Jun, Recurrent major depressive d isorder, in partial remission F33.41 [facility] [address] [place] [id number] [address] [place] [address] May, Major depression F32.9 and M orbid obesity E66.01 [facility] [address] [place] [id number] [place] [phone] May, [facility] [id number] [place] [address] [id number] May, Thrush B37.0 [facility] [address] [place] [id number] [address] [place] [address] Apr, Major depressive disorder, r ecurrent, moderate F33.1 [facility] [address] [place] [id number] [address] [place] [phone] 15 Apr, 2016 Insomnia G47.00 ; Major depr ession F32.9 and Recurrent major depressive disorder, in partial remission F33.41 [facility] [address] [facility] [id number] [address] [place] [address] Apr, [place] [id number] [facility] [id number] [address] [place] [address] Apr, Major depression F32.9 and R ecurrent major depressive disorder, in partial remission F33.[address] [id number], [place] [id number] Mar, Benign essential hypertension I10 ; Morb id obesity E66.01 ; Impacted cerumen of both ears H61.23 ; Laceration of finger of right hand, initial encounter S61.219A and Encounter for immunization Z23 [facility] [address] [facility] [id number] [address] [place] [phone] 17 Mar, 2016 [place] [address] [facility] [id number] [address] [place] [address] Mar, [place] [address] [facility] [id number] [address] [place] [phone] Mar, [address] [id number], [place] [id number] Feb, Nausea R11.0 ; Blood in the stool K92.1 and Benign essential hypertension I10 [place] [address] [facility] [id number] [address] [place] [address] Feb, Major depression F32.9 and R ecurrent major depressive disorder, in partial remission F33.41 [facility] [address] [id number], [place] [id number] Feb, [place] [address] [id number], [place] [id number] Feb, Recurrent major depressive disorder, in partial remission F33.41 [facility] [address] [id number], [place] [id number] Jan, [facility] [address] [id number], [place] [id number] Jan, Benign essential hypertension I10 ; Robert a R60.9 and Hyperlipidemia, unspecified hyperlipidemia type E78.5 [facility] [address] [id number], [place] [id number] Jan, Recurrent major depressive disorder, in partial remission F33.41 [facility] [place] [address] [id number] [place] [id number] Jan, [facility] [address] [id number], [place] [id number] Jan, [facility] [address] [id number], [place] [id number] Jan, [facility] [address] [facility] [id number] [address] [place] [phone] Jan, [facility] [address] [facility] [id number] [address] [place] [phone] Dec, [facility] [address] [facility] [id number] [address] [place] [phone] Nov, [facility] [address] [facility] [id number] [address] [place] [address] Nov, Major depression F32.9 [facility] [address] [facility] [id number] [address] [place] [address] Nov, [facility] [address] [facility] [id number] [address] [place] [phone] Nov, [facility] [address] [facility] [id number] [address] [place] [id number] Nov, Major depressive disorder, r ecurrent episode, mild F33.0 and Anxiety F41.9 [facility] [address] [id number], [place] [id number] Nov, [facility] [address] [id number], [place] [id number] October, Left elbow pain M25.522 and Other season al allergic rhinitis J30.2 [facility] [address] [id number], [place] [id number] October, [facility] [address] [facility] [id number] [address] [place] [address] October, Major depressive disorder, r ecurrent, moderate F33.1 [facility] [address] [facility] [id number] [address] [place] [phone] October, Major depression F32.9 [facility] [address] [facility] [id number] [address] [place] [address] Sep, Edwards or callus L84 and Onych omycosis B35.1 [facility] [address] [facility] [id number] [address] [place] [phone] Sep, Major depressive disorder, r ecurrent, moderate F33.1 [facility] [address] [facility] [id number] [address] [place] [phone] Sep, Major depression F32.9 [facility] [address] [facility] [id number] [address] [place] [address] Sep, Moderate episode of recurren t major depressive disorder F33.1 [facility] [address] [place] [address] AVE [id number], [place] [id number] Sep, Muscle strain T14.8 [facility] [address] [facility] [id number] [address] [place] [address] Aug, Major depression F32.9 [facility] [address] [facility] [id number] [address] [place] [phone] Aug, Major depression F32.9 [facility] [address] [facility] [id number] [address] [place] [address] Jul, Morbid obesity E66.01 and Ma cora depression F32.9 [facility] [address] [facility] [id number] [address] [place] [phone] Jul, Depression, major, recurrent , moderate F33.[address] [id number], [place] [id number] Jul, [facility] [address] [facility] [id number] [address] [place] [phone] Jul, [facility] [address] [facility] [id number] [address] [place] [id number] Jul, Major depression F32.9 and M orbid obesity E66.[address] [id number][place] [id number] Jul, Type II diabetes mellitus E11.9 ; Callus of foot L84 ; Benign essential hypertension I10 and Renal insufficiency N28.9 [facility] [address] [facility] [id number] [address] [place] [id number] 09 Jul, 2015 Depression, major, recurrent , moderate F33.1 [facility] [address] [facility] [id number] [address] [place] [id number] Jul, Major depression F32.9 [facility] [address] [place] [id number] [address] [place] [id number] Jul, [facility] [address] [facility] [id number] [address] [place] [id number] Jun, Major depression F32.9 [facility] [address] [facility] [id number] [address] [place] [id number] Jun, Major depressive disorder, r ecurrent, moderate F33.1 [facility] [address] [facility] [id number] [address] [place] [id number] Jun, [place] [address] [address] [facility] [id number] [address] [place] [phone] Jun, Major depressive disorder, r ecurrent, moderate F33.1 and Major depression F32.[address] [id number][place] [id number] Jun, Type II diabetes mellitus E11.9 [place] [address] [address] [facility] [id number] [address] [place] [id number] Jun, Depression, major, recurrent , moderate F33.1 [place] [address] [address] [facility] [id number] [address] [place] [id number] May, Major depressive disorder, r ecurrent, moderate F33.1 [place] [address] [address] [facility] [id number] [address] [place] [phone] May, [place] [address] [id number][place] [id number] May, Edema R60.9 [place] [address] [address] [facility] [id number] [address] [place] [id number] May, Insomnia G47.00 and Major de pression F32.[address] [place] [id number] [place] [id number] May, Morbid obesity E66.01 ; Edema R60.9 ; Sh ortness of breath R06.02 ; Benign essential hypertension I10 and Renal insufficiency N28.[address] [place] [id number] [place] [id number] May, Hyperlipemia 272.4 and Renal insufficien cy N28.9 [place] [address] [address] [facility] [facility] [id number] [address] [place] [address] Apr, Major depression F32.9 [place] [address] [address] [facility] [id number] [address] [place] [address] Apr, [place] [address] [address] [facility] [id number] [address] [place] [address] Apr, Major depressive disorder, r ecurrent, moderate F33.[address] [place] [address] [id number] [id number] Apr, Type II diabetes mellitus E11.9 ; Benign essential hypertension I10 ; Edema R60.9 and Renal insufficiency N28.9 [place] [id number] [facility] [id number] [address] [place] [address] Mar, Major depressive disorder, r ecurrent, moderate F33.1 [facility] 301 N [facility] [id number] [address] [place] [address] Mar, [facility] 301 [address] [facility] [id number] [address] [place] [address] Mar, Major depression F32.9 [facility] [id number] [place] [id number] Mar, Morbid obesity E66.01 ; Benign essential hypertension I10 and Type II diabetes mellitus E11.9 [place] [address] [address] [facility] [id number] [address] [place] [address] Feb, Major depressive disorder, r ecurrent, moderate F33.1 [place] [address] [address] [place] [id number] [address] [place] [address] Feb, Major depressive disorder, r ecurrent episode, in partial or unspecified remission 296.35 ; Anxiety state, unspecified 300.00 and Morbid obesity 278.01 [place] [address] [address] [place] [id number] [address] [place] [address] Feb, [place] [id number] [place] [id number] Feb, Vomiting 787.03 and Viral syndrome 079.9 9 [place] [address] [address] [place] [id number] [address] [place] [address] 15 Feb, 2015 Major depression, recurrent 296.30 ; Generalized anxiety disorder 300.02 and No condition on [place] II V71.09 [facility] [id number] [place] [id number] Feb, Skin tag 701.9 [facility] 301 N [facility] [id number] [address] [place] [address] Feb, [place] [address] [address] [place] [id number] [address] [place] [address] Jan, Depression, major, recurrent , moderate 296.[address] [id number] [id number] Jan, Nausea and vomiting 787.01 ; Rib pain on right side 786.50 and Fall on or from sidewalk curb E880.1 [facility] [address] [facility] [id number] [address] [place] [address] Jan, [facility] 301 N [place] [id number] [address] [place] [address] Jan, Major depressive disorder, r ecurrent episode, in partial or unspecified remission 296.35 and Anxiety state, unspecified 300.[address] [id number] [id number] Jan, [facility] 301 N [facility] [id number] [address] [place] [address] Jan, Depression, major, recurrent , moderate 296.32 [facility] [address] [facility] [id number] [address] [place] [address] Jan, Major depression, recurrent 296.30 ; No condition on Oakham II V71.09 and No condition on axis III V71.[address] [id number] [id number] Jan, Drug-induced nausea and vomiting 787.01 [facility] 301 N [facility] [id number] [address] [place] [address] Jan, Depression, major, recurrent , moderate 296.32 [place] [address] [address] [facility] [id number] [address] [place] [address] Dec, Depression, major, recurrent , moderate 296.[address] [id number] [id number] Dec, Morbid obesity 278.01 ; Metabolic syndro me 277.7 ; Hyperlipemia 272.4 ; Benign essential hypertension 401.1 ; Dietary counseling V65.3 ; Exercise counseling V65.41 and Inflamed skin tag 701.9 [place] [id number] [address] Dec, Depression, major, recurrent , moderate 296.32 [place] [address] [address] Dec, [place] [address] [address] Dec, Major depression, recurrent 296.30 ; Anxiety, generalized 300.02 and No condition on Oak[place] II V71.09 [place] [address] [address] Dec, Depression, major, recurrent , moderate 296.32 [place] [address] [address] Dec, Major depressive disorder, r ecurrent episode, moderate 296.[address] [address] Dec, Depression, major, recurrent , moderate 296.32 [place] [address] [address] Dec, Depression, major, recurrent , moderate 296.32 [place] [address] [address] Dec, Depression, major, recurrent , moderate 296.32 [place] [address] [address] Dec, Depression, major, recurrent , moderate 296.32 [place] [address] [address] Nov, Depression, major, recurrent , moderate 296.32 [place] [address] [address] Nov, Major depression 296.20 ; So cial phobia 300.23 and No condition on [place] II V71.09 [place] [address] [address] [place] [id number] [place] [address] 16 Nov, 2014 Depression, major, recurrent , moderate 296.32 [facility] [address] [facility] [id number] [address] [place] [address] 09 Nov, 2014 Major depressive disorder, r ecurrent episode, moderate 296.32 and Generalized anxiety disorder 300.02 [facility] [address] [facility] [id number] [address] [place] [address] Nov, Depression, major, recurrent , moderate 296.32 [facility] [address] [facility] [id number] [address] [place] [address] Nov, Depression, major, recurrent , moderate 296.32 [facility] [address] [place] [id number] [place] [address] October, Generalized anxiety disorder 300.02 ; No condition on Oak[place] II V71.09 and Major depressive disorder, recurrent 296.30 [facility] [address] [place] [id number] [address] [place] [address] Sep, [facility] [address] [place] [id number] [address] [place] [address] Sep, [facility] [address] [place] [id number] [address] [place] [address] Aug, [facility] [address] [place] [id number] [address] [place] [address] Aug, [facility] [address] [place] [id number] [address] [place] [address] Aug, [facility] [address] [place] [id number] [address] [place] [address] Aug, [facility] [address] [place] [id number] [address] [place] [address] Aug, [facility] [address] [place] [id number] [address] [place] [address] Aug, [facility] [address] [place] [id number] [address] [place] [address] 20 Aug, 2014 [facility] [address] [id number] [address] [place] [address], [place] [address] 20 Aug, 2014 [facility] [place] [facility] [address] [id number] [address] [place] [address], [place] [address] 13 Aug, 2014 [facility] [place] [facility] [address] [id number] [address] [place] [address], [place] [address] 13 Aug, 2014 [facility] [place] [facility] [address] [id number] [address] [place] [address], [place] [address] 13 Aug, 2014 [facility] [place] [facility] [address] [id number] [address] [place] [address], [place] [address] Aug, [facility] [place] [facility] [address] [id number] [address] [place] [address], [place] [address] Aug, [facility] [place] [facility] [address] [id number] [address] [place] [address], [place] [address] Aug, [facility] [place] [facility] [address] [id number] [address] [place] [address], [place] [address] 10 Aug, 2014 [facility] [place] [facility] [address] [id number] [address] [place] [address], [place] [address] 10 Aug, 2014 [facility] [place] [facility] [address] [id number] [address] [place] [address], [place] [address] Aug, [facility] [place] [facility] [address] [id number] [address] [place] [address], [place] [address] Aug, [facility] [place] [facility] [address] [id number] [address] [place] [address], [place] [address] 24 Jul, 2014 [facility] [place] [facility] [address] [id number] [address] [place] [address], [place] [address] Jul, [facility] [place] [facility] [address] [id number] [address] [place] [address], [place] [address] 16 Jul, 2014 [facility] [place] [facility] [address] [id number] [address] [place] [address], [place] [address] 16 Jul, 2014 [facility] [place] [facility] [address] [id number] [address] [place] [address], [place] [address] Jul, [facility] [address] [id number] [address] [place] [address], [place] [address] Jul, [facility] [address] [id number] [address] [place] [address], [place] [address] Jun, [facility] [address] [id number] [address] [place] [address], [place] [address] Jun, [facility] [address] [id number] [address] [place] [address], [place] [address] Jun, [facility] [address] [id number] [address] [place] [address], [place] [address] Jun, [facility] [address] [id number] [address] [place] [address], [place] [address] Jun, [facility] [address] [id number] [address] [place] [address], [place] [address] Jun, [facility] [address] [id number] [address] [place] [address], [place] [address] Jun, [facility] [address] [id number] [address] [place] [address], [place] [address] Jun, [facility] [address] [id number] [address] [place] [address], [place] [address] Jun, [facility] [address] [id number] [address] [place] [address], [place] [address] Jun, [facility] [address] [id number] [address] [place] [address], [place] [address] Jun, [facility] [address] [id number] [address] [place] [address], [place] [address] Jun, [facility] [address] [id number] [place] [id number] Jun, [facility] [address] [id number] [address] [place] [address], [place] [address] Jun, [facility] [address] [id number] [address] [place] [address], [place] [address] Jun, [facility] [place] [facility] [address] [id number] [address] [place] [address], [place] [address] Jun, [facility] [address] [id number] [address] [place] [address], [place] [address] May, [facility] [place] [facility] [address] [id number] [address] [place] [address], [place] [address] May, [facility] [address] [id number] [address] [place] [address], [place] [address] May, [facility] [place] [facility] [address] [id number] [address] [place] [address], [place] [address] May, [facility] [place] [facility] [address] [id number] [address] [place] [address], [place] [address] Apr, [facility] [place] [facility] [address] [id number] [address] [place] [address], [place] [address] Apr, [facility] [place] [facility] [address] [id number] [address] [place] [address], [place] [address] Apr, [facility] [place] [facility] [address] [id number] [address] [place] [address], [place] [address] Apr, [facility] [place] [facility] [address] [id number] [address] [place] [address], [place] [address] Apr, [facility] [place] [facility] [address] [id number] [address] [place] [address], [place] [address] Apr, [facility] [place] [facility] [address] [id number] [address] [place] [address], [place] [address] Apr, [facility] [place] [facility] [address] [id number] [address] [place] [address], [place] [address] Apr, [facility] [place] [facility] [address] [id number] [address] [place] [address], [place] [address] Apr, [facility] [place] [facility] [address] [id number] [address] [place] [address], [place] [address] Apr, [facility] [place] [facility] [address] [id number] [address] [place] [address], [place] [address] Apr, [facility] [place] [facility] [address] [id number] [address] [place] [address], [place] [address] Apr, [facility] [place] [facility] [address] [id number] [address] [place] [address], [place] [address] Apr, [facility] [place] [facility] [address] [id number] [address] [place] [address], [place] [address] Apr, [facility] [place] [facility] [address] [id number] [address] [place] [address], [place] [address] Apr, [facility] [place] [facility] [address] [id number] [address] [place] [address], [place] [address] Apr, [facility] [place] [facility] [address] [id number] [address] [place] [address], [place] [address] Apr, [facility] [place] [facility] [address] [id number] [address] [place] [address], [place] [address] Apr, [facility] [place] [facility] [address] [id number] [address] [place] [address], [place] [address] Apr, [facility] [place] [facility] [address] [id number] [address] [place] [address], [place] [address] Apr, [facility] [place] [facility] [address] [id number] [address] [place] [address], [place] [address] Mar, [facility] [place] [facility] [address] [id number] [address] [place] [address], [place] [address] Mar, [facility] [place] [facility] [address] [id number] [address] [place] [address], [place] [address] Mar, [facility] [place] [facility] [address] [id number] [address] [place] [address], [place] [address] Mar, [facility] [place] [facility] [address] [id number] [address] [place] [address], [place] [address] Mar, [facility] [place] [facility] [address] [id number] [address] [place] [address], [place] [address] Mar, [facility] [place] [facility] [address] [id number] [address] [place] [address], [place] [address] Mar, [facility] [place] [facility] [address] [id number] [address] [place] [address], [place] [address] Mar, [facility] [place] [facility] [address] [id number] [address] [place] [address], [place] [address] Mar, [facility] [place] [facility] [address] [id number] [address] [place] [address], [place] [address] Mar, [facility] [place] [facility] [address] [id number] [address] [place] [address], [place] [address] Feb, [facility] [place] [facility] [address] [id number] [address] [place] [address], [place] [address] Feb, [facility] [place] [facility] [address] [id number] [address] [place] [address], [place] [address] Feb, [facility] [place] [facility] [address] [id number] [address] [place] [address], [place] [address] Feb, [facility] [place] [facility] [address] [id number] [address] [place] [address], [place] [address] Jan, [facility] [place] [facility] [address] [id number] [address] [place] [address], [place] [address] Jan, [facility] [place] [facility] [address] [id number] [address] [place] [address], [place] [address] Jan, [facility] [place] [facility] [address] [id number] [address] [place] [address], [place] [address] Jan, [facility] [place] [facility] [address] [id number] [address] [place] [address], [place] [address] Jan, [facility] [place] [facility] [address] [id number] [address] [place] [address], [place] [address] Jan, [facility] [place] [facility] [address] [id number] [address] [place] [address], [place] [address] Dec, [facility] [address] [id number] [facility] [address] Dec, [facility] [place] [facility] [address] [id number] [address] [place] [address], [place] [address] Nov, [facility] [address] [id number] [address] [place] [address], [place] [address] Nov, [facility] [place] [facility] [address] [id number] [address] [place] [address], [place] [address] Nov, [facility] [address] [id number] [address] [place] [address], [place] [address] Nov, [facility] [address] [id number] [address] [place] [address], [place] [address] Nov, [facility] [address] [id number] [address] [place] [address], [place] [address] Nov, [facility] [place] [facility] [address] [id number] [address] [place] [address], [place] [address] Sep, [facility] [address] [id number] [address] [place] [address], [place] [address] Sep, [facility] [place] [facility] [address] [id number] [address] [place] [address], [place] [address] Sep, [facility] [place] [facility] [address] [id number] [address] [place] [address], [place] [address] Sep, [facility] [place] [facility] [address] [id number] [address] [place] [address], [place] [address] Aug, [facility] [place] [facility] [address] [id number] [address] [place] [address], [place] [address] Aug, [facility] [place] [facility] [address] [id number] [address] [place] [address], [place] [address] Jul, [facility] [place] [facility] [address] [id number] [address] [place] [address], [place] [address] Jul, [facility] [place] [facility] [address] [id number] [address] [place] [address], [place] [address] Jun, [facility] [address] [id number] [address] [place] [address], [place] [address] Jun, [facility] [address] [id number] [address] [place] [address], [place] [address] Jun, [facility] [address] [id number] [address] [place] [address], [place] [address] Jun, [facility] [address] [id number] [address] [place] [address], [place] [address] May, [facility] [address] [id number] [address] [place] [address], [place] [address] May, [facility] [address] [id number] [address] [place] [address], [place] [address] May, [facility] [address] [id number] [address] [place] [address], [place] [address] May, [facility] [address] [id number] [address] [place] [address], [place] [address] May, [facility] [address] [id number] [address] [place] [address], [place] [address] May, [facility] [address] [id number] [address] [place] [address], [place] [address] Apr, [facility] [address] [id number] [address] [place] [address], [place] [address] Apr, [facility] [address] [id number] [address] [place] [address], [place] [address] Apr, [facility] [address] [id number] [address] [place] [address], [place] [address] Apr, [facility] [address] [id number] [address] [place] [address], [place] [address] Mar, [facility] [address] [id number] [address] [place] [address], [place] [address] Mar, [facility] [address] [id number] [address] [place] [address], [place] [address] Mar, [facility] [address] [id number] [address] [place] [address], [place] [address] Mar, [facility] [address] [id number] [address] [place] [address], [place] [address] Feb, [facility] [address] [id number] [place] [id number] Jan, [facility] [address] [id number] [address] [place] [address], [place] [address] Jan, [facility] [address] [id number] [address] [place] [address], [place] [address] Dec, [facility] [address] [id number] [address] [place] [address], [place] [address] Dec, [facility] [address] [id number] [address] [place] [address], [place] [address] Dec, [facility] [address] [id number] [place] [id number] Dec, [facility] [address] [id number] [address] [place] [address], [place] [address] Nov, [facility] [address] [id number] [address] [place] [address], [place] [address] Nov, [facility] [address] [id number] [address] [place] [id number] Nov, [facility] [address] [id number] [address] [place] [address], [place] [address] Nov, [facility] [address] [id number] [address] [place] [address], [place] [address] Nov, [facility] [address] [id number] [address] [place] [address], [place] [address] October, [facility] [address] [id number] [address] [place] [phone] October, [facility] [address] [facility] [id number] [address] [address] Aug, [facility] [address] [facility] [id number] [address] [place] [phone] Nov, IMMUNIZATIONS No Known Immunizations SOCIAL HISTORY [...] 04/2019 Hospitalization History gastric sleeve Hospitalization History [facility] ER Trouble with left shoulder blade 08/2017
--- OUTSIDE RECORDS SUMMARY | 2019-11-29 08:56 | XMS REPORT ---
Author Author Curt DIAZ [facility] Address [address] [place] [address] Care Team Providers Care English Adjunct Faculty Name Role Phone CHRIS DIAZ Unavailable PROBLEMS Type Condition ICD9-CM Code FXO60-TV Code Onset Dates Condition S tatus SNOMED Code Problem Edema R60.9 Active 966612264 Problem Morbid obesity E66.01 Active 50375 6002 Problem Metabolic syndrome E88.81 Active 2 09200096 Problem Renal insufficiency N28.9 Active 439877168 Problem Vitamin D deficiency E55.9 Active 62066935 Problem Severe episode of recurrent major depressive disorder, without 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 Active 01007909 Problem DANIELA (generalized anxiety disorder) F41.1 Active 70190715 Problem Mixed obsessional thoughts and acts F42.2 Active 46619974 Problem Chronic fatigue R53.82 Active 8422 9001 Problem Other chronic pain G89.29 Active 8 2258797 Problem Borderline personality disorder F60.3 Active 14451008 Problem Attachment disorder F94.1 Active Problem Sciatica, right side M54.31 Active 603360212017151 Problem Insomnia G47.00 Active 197678629 Problem Anxiety F41.9 Active 02437709 Problem BMI 45.0-49.9, adult Z68.42 Active 754840812 Problem Hyperlipemia E78.5 Active 8566219 4 Problem Benign essential hypertension I10 Active 7089200 Problem Callous ulcer, limited to breakdown of skin L98.49 1 Active Problem Hammer toe of right foot M20.41 Activ e 110475491 Problem Hammer toe of second toe of right foot M20.41 Active 573725057 Problem Falling episodes R29.6 Active 161 160647 ALLERGIES No Information ENCOUNTERS Encounter Location Date Diagnosis [facility] [address] [facility] [id number] [place] [address] Dec, [facility] [address] [place] [id number] [address] [place] [phone] 15 Dec, [address] [facility] [address] [id number], [place] [id number] 14 Dec, 2019 [facility] [address] [id number] [address] [place] [phone] Dec, [facility] [address] [id number] [address] [place] [phone] Nov, [facility] [address] [id number] [address] [place] [phone] Nov, [facility] [address] [id number] [address] [place] [phone] October, [facility] [address] [id number] [address] [place] [phone] October, [facility] [address] [id number] [address] [place] [phone] October, [facility] [id number] [place] [address] [id number] Sep, [facility] [address] [id number] [address] [place] [phone] Sep, [facility] [id number] [place] [address] [id number] Sep, [facility] [address] [id number] [address] [place] [phone] 28 Sep, 2019 [facility] [address] [id number] [address] [place] [phone] 24 Sep, 2019 [facility] [address] [id number] [address] [place] [phone] Sep, [facility] [address] [id number] [address] [place] [phone] Sep, [facility] [address] [id number] [address] [place] [phone] Sep, DANIELA (generalized anxiety dis order) F41.1 ; Severe episode of recurrent major depressive disorder, without 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 ; Mixed obsessional thoughts and acts F42.2 and Borderline personality disorder F60.3 [facility] [address] [facility] [id number] [place] [address] Sep, Severe episode of recurrent major depres sive disorder, without 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 [facility] [address] [id number], [place] [id number] Sep, [facility] [address] [id number], [place] [id number] Sep, [facility] [address] [id number], [place] [id number] Sep, Benign essential hypertension I10 [facility] [address] [facility] [id number] [address] [place] [phone] Sep, [facility] [address] [facility] [id number] [address] [place] [phone] Sep, [facility] [address] [facility] [id number] [address] [place] [phone] Sep, [facility] [address] [facility] [id number] [address] [place] [phone] Sep, DANIELA (generalized anxiety dis order) F41.1 ; Severe episode of recurrent major depressive disorder, without 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 ; Mixed obsessional thoughts and acts F42.2 and Borderline personality disorder F60.3 [facility] [address] [id number], [place] [id number] Aug, [facility] [address] [facility] [id number] [address] [place] [phone] Aug, [facility] [address] [id number], [place] [id number] Aug, [facility] [address] [facility] [id number] [address] [place] [phone] Aug, [facility] [address] [id number], [place] [id number] 17 Aug, 2019 Dizzy R42 ; Weight gain R63.5 ; Benign e ssential hypertension I10 ; Falling episodes R29.6 and History of gastric bypass Z98.84 [facility] [address] [id number] [address] [place] [phone] 14 Aug, 2019 [facility] [address] [address] [id number] [address] [place] [phone] 13 Aug, 2019 [facility] [address] [facility] [id number] [address] [place] [phone] 11 Aug, 2019 DANIELA (generalized anxiety dis order) F41.1 ; Severe episode of recurrent major depressive disorder, without 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 ; Mixed obsessional thoughts and acts F42.2 and Borderline personality disorder F60.[id number] [place] [address] [id number] Aug, [place] [id number] [place] [address] [id number] Aug, [place] [address] [facility] [id number] [address] [place] [phone] Aug, [address] [id number] [place] [address] [id number] Aug, [address] [id number] [place] [address] [id number] Aug, [place] [address] [facility] [id number] [address] [place] [phone] Aug, [id number] [place] [address] [id number] Aug, Severe episode of recurrent major depres sive disorder, without 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 ; Borderline personality disorder F60.3 ; Anxiety F41.9 and Attachment disorder F94.1 [place] [address] [place] [id number] [address] [place] [phone] Jul, [place] [address] [facility] [id number] [address] [place] [phone] 24 Jul, 2019 DANIELA (generalized anxiety dis order) F41.1 ; Severe episode of recurrent major depressive disorder, without 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 ; Mixed obsessional thoughts and acts F42.2 and Borderline personality disorder F60.3 [place] [id number] [facility] [address] [id number], [place] [id number] Jul, [facility] [address] [facility] [id number] [address] [place] [phone] Jul, [facility] [address] [facility] [id number] [address] [place] [phone] 14 Jul, 2019 [facility] [address] [facility] [id number] [address] [place] [phone] 12 Jul, 2019 [facility] [address] [facility] [id number] [address] [place] [phone] Jul, [facility] [address] [facility] [id number] [address] [place] [phone] Jun, DANIELA (generalized anxiety dis order) F41.1 ; Severe episode of recurrent major depressive disorder, without 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 ; Mixed obsessional thoughts and acts F42.2 and Borderline personality disorder F60.3 [address] [id number], [place] [id number] Jun, [facility] [address] [facility] [address] [id number], [place] [id number] Jun, [facility] [address] [facility] [id number] [address] [place] [phone] Jun, [facility] [address] [facility] [id number] [address] [place] [phone] Jun, DANIELA (generalized anxiety dis order) F41.1 ; Severe episode of recurrent major depressive disorder, without 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 ; Mixed obsessional thoughts and acts F42.2 and Borderline personality disorder F60.[address] [place] [place] [address] [id number], [place] [id number] Jun, [facility] [address] [id number], [place] [id number] Jun, [facility] [address] [id number], [place] [id number] Jun, [facility] [place] [address] [facility] [address] [id number], [place] [id number] Jun, Benign essential hypertension I10 ; Morb id obesity E66.01 ; Severe episode of recurrent major depressive disorder, without 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 ; Excess skin L98.7 and Hyperlipemia E78.5 [place] [address] [place] [id number] [place] [phone] Jun, [place] [address] [place] [id number] [place] [address] May, [place] [address] [address] May, Severe episode of recurrent major depressive disorder, without 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 ; Mixed obsessional thoughts and acts F42.2 ; DANIELA (generalized anxiety disorder) F41.1 and Borderline personality disorder F60.3 [place] [address] [place] [id number] [address] [place] [phone] May, [facility] [address] [id number] [address] [place] [phone] May, DANIELA (generalized anxiety dis order) F41.1 ; Severe episode of recurrent major depressive disorder, without 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 ; Mixed obsessional thoughts and acts F42.2 and Borderline personality disorder F60.3 [place] [address] [place] [id number] [address] [place] [phone] May, [facility] [address] [place] [id number] [address] [place] [phone] May, [facility] [address] [place] [id number] [address] [place] [phone] May, Severe episode of recurrent major depressive disorder, without 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 ; Mixed obsessional thoughts and acts F42.2 ; Borderline personality disorder F60.3 and DANIELA (generalized anxiety disorder) F41.1 [facility] [address] [id number] [address] [place] [address] [id number] May, Caries K02.9 [facility] [address] [id number], [place] [id number] May, Benign essential hypertension I10 [facility] [address] [id number], [place] [id number] Apr, [facility] [address] [id number], [place] [id number] Apr, Benign essential hypertension I10 [facility] [address] [id number] [address] [place] [phone] Apr, Borderline personality disor romero F60.3 ; DANIELA (generalized anxiety disorder) F41.1 ; Mixed obsessional thoughts and acts F42.2 and Severe episode of recurrent major depressive disorder, without 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 [facility] [address] [id number], [place] [id number] Apr, [facility] [address] [id number], [place] [id number] Apr, Benign essential hypertension I10 [facility] [id number] [place] [phone] Apr, Severe episode of recurrent major depressive disorder, without 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 ; DANIELA (generalized anxiety disorder) F41.1 ; Borderline personality disorder F60.3 and Mixed obsessional thoughts and acts F42.2 [facility] [address] [id number] [address] [place] [address] [id number] Apr, Dental examination Z01.20 [facility] [address] [id number] [address] [place] [address] [id number] Apr, Caries K02.9 and Dental exam ination Z01.20 [facility] [address] [place] [id number] [address] [place] [phone] Apr, DANIELA (generalized anxiety dis order) F41.1 ; Severe episode of recurrent major depressive disorder, without 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 ; Mixed obsessional thoughts and acts F42.2 and Borderline personality disorder F60.3 [facility] [address] [facility] [id number] [address] [place] [phone] Mar, Severe episode of recurrent major depressive disorder, without 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 ; Mixed obsessional thoughts and acts F42.2 ; Borderline personality disorder F60.3 and DANIELA (generalized anxiety disorder) F41.1 [place] [address] [facility] [id number] [address] [place] [phone] Mar, Severe episode of recurrent major depressive disorder, without 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 ; Mixed obsessional thoughts and acts F42.2 ; DANIELA (generalized anxiety disorder) F41.1 and Borderline personality disorder F60.3 [facility] [address] [place] [id number] [address] [place] [address] [id number] Mar, Dental examination Z01.20 an d Caries K02.9 [facility] [id number] [place] [address] [id number] Mar, Benign essential hypertension I10 and Fa lling episodes R29.6 [facility] [address] [facility] [id number] [address] [place] [phone] Mar, [place] [address] [facility] [id number] [address] [place] [phone] Mar, Severe episode of recurrent major depressive disorder, without 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 ; Mixed obsessional thoughts and acts F42.2 ; Borderline personality disorder F60.3 and DANIELA (generalized anxiety disorder) F41.1 [place] [address] [facility] [id number] [address] [place] [phone] Mar, [facility] [address] [facility] [id number] [address] [place] [phone] Mar, [facility] [address] [id number], [place] [id number] Mar, [facility] [address] [facility] [id number] [address] [place] [phone] Mar, Severe episode of recurrent major depressive disorder, without 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 ; Mixed obsessional thoughts and acts F42.2 ; Borderline personality disorder F60.3 and DANIELA (generalized anxiety disorder) F41.1 [facility] [address] [facility] [id number] [address] [place] [phone] Mar, [facility] [address] [id number] [address] [place] [address] [id number] Feb, Dental examination Z01.20 an d Periodontitis K05.30 [facility] [address] [facility] [id number] [address] [place] [phone] Feb, DANIELA (generalized anxiety dis order) F41.1 ; Severe episode of recurrent major depressive disorder, without 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 ; Mixed obsessional thoughts and acts F42.2 and Borderline personality disorder F60.3 [facility] [address] [id number], [place] [id number] Feb, Acute pain of right knee M25.561 ; Fall, initial encounter W19.XXXA ; Benign essential hypertension I10 and Edema R60.9 [facility] [address] [facility] [id number] [address] [place] [phone] Feb, [facility] [address] [facility] [id number] [address] [place] [phone] Feb, DANIELA (generalized anxiety dis order) F41.1 ; Severe episode of recurrent major depressive disorder, without 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 ; Mixed obsessional thoughts and acts F42.2 and Borderline personality disorder F60.3 [facility] [address] [facility] [id number] [address] [place] [phone] Feb, [facility] [address] [facility] [id number] [address] [place] [phone] Jan, [facility] [address] [facility] [id number] [address] [place] [phone] Jan, [facility] [address] [facility] [id number] [address] [place] [phone] Jan, [facility] [address] [facility] [id number] [place] [address] [id number] Jan, Callus of heel L84 ; Fissure in skin R23 .4 and Hammer toe of second toe of right foot M20.41 [facility] [address] [place] [address] A[id number] [place] [address] [id number] Jan, [facility] [address] [place] [id number] [address] [place] [phone] Jan, [facility] [address] [place] [id number] [place] [phone] Jan, [place] [address] [address] Jan, Severe episode of recurrent major depressive disorder, without 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 ; DANIELA (generalized anxiety disorder) F41.1 ; Mixed obsessional thoughts and acts F42.2 and Borderline personality disorder F60.3 [facility] [address] [place] [phone] Jan, [facility] [address] [place] [address] [id number] [place] [address] [id number] Jan, Benign essential hypertension I10 [facility] [address] [place] [address] A[id number] [place] [address] [id number] Dec, Callous ulcer, limited to breakdown of s kin L98.491 and Morbid obesity E66.01 [facility] [address] [facility] [id number] [address] [place] [phone] Dec, [facility] [address] [place] [id number] [place] [phone] Dec, [facility] [address] [place] [id number] [place] [phone] Dec, [facility] [address] [facility] [id number] [address] [place] [phone] Dec, [facility] [address] [facility] [id number] [address] [place] [phone] Dec, Severe episode of recurrent major depressive disorder, without 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 [facility] [address] [facility] [id number] [address] [place] [phone] Dec, DANIELA (generalized anxiety dis order) F41.1 ; Severe episode of recurrent major depressive disorder, without 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 ; Mixed obsessional thoughts and acts F42.2 and 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 [facility] [address] [id number], [place] [id number] Dec, Morbid obesity E66.01 [facility] [address] [facility] [id number] [address] [place] [phone] Dec, [facility] [address] [facility] [id number] [address] [place] [phone] Dec, [facility] JENNY [address] 340[id number] [address] Nov, [facility] [address] [id number], [place] [id number] Nov, [facility] [address] [facility] [id number] [address] [place] [phone] Nov, [facility] [address] [facility] [id number] [address] [place] [phone] Nov, [facility] [address] [facility] [id number] [address] [place] [address] Nov, DANIELA (generalized anxiety dis order) F41.1 ; Severe episode of recurrent major depressive disorder, without 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 ; Mixed obsessional thoughts and acts F42.2 and 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 [facility] [address] [id number], [place] [id number] Nov, Morbid obesity E66.01 [facility] [address] [facility] [id number] [address] [place] [phone] Nov, [facility] [address] [facility] [id number] [address] [place] [phone] Nov, DANIELA (generalized anxiety dis order) F41.1 ; Mixed obsessional thoughts and acts F42.2 ; Severe episode of recurrent major depressive disorder, without 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 and 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 [facility] [address] [id number], [place] [id number] October, Morbid obesity E66.01 [facility] [address] [id number], [place] [id number] October, Benign essential hypertension I10 and Mo rbid obesity E66.01 [facility] [address] [id number], [place] [id number] October, [facility] [address] [place] [id number] [address] [place] [address] October, Severe episode of recurrent major depressive disorder, without 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 [facility] [address] [id number], [place] [id number] October, Morbid obesity E66.01 [facility] [address] [id number], [place] [id number] October, [facility] [address] [facility] [id number] [address] [place] [phone] October, Severe episode of recurrent major depressive disorder, without 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 ; DANIELA (generalized anxiety disorder) F41.1 ; Mixed obsessional thoughts and acts F42.2 and 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 [facility] [address] [id number], [place] [id number] October, Morbid obesity E66.01 [facility] [address] [id number] [address] [place] [address] [id number] Sep, Dental examination Z01.20 [facility] [address] [id number], [place] [id number] Sep, [facility] [address] [facility] [id number] [place] [address] Sep, Sore in mouth K13.79 and Mor bid obesity E66.01 [facility] [address] [facility] [id number] [address] [place] [phone] Sep, Dental examination Z01.20 [facility] [address] [facility] [id number] [address] [place] [phone] Sep, Anxiety disorder, unspecifie d F41.[id number] [place] [address] [id number] Sep, Mouth ulcer K12.1 [facility] [id number] [place] [address] [id number] Sep, Morbid obesity E66.01 [facility] [address] [place] [id number] [place] [address] [id number] Sep, Allergic rhinitis, unspecified seasonali ty, unspecified trigger J30.9 and Shortness of breath R06.02 [facility] [address] [id number], [place] [id number] Sep, 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 [facility] [address] [id number], [place] [id number] Aug, Mouth abscess K12.2 ; Mouth ulcer K12.1 ; Bloating R14.0 and Morbid obesity E66.01 [facility] [address] [id number], [place] [id number] Aug, [facility] [address] [id number], [place] [id number] Aug, [facility] [address] [id number][place] [id number] Jul, Major depressive disorder, recurrent, mo derate F33.1 ; Abscess of arm, left L02.414 ; BMI 45.0-49.9, adult Z68.42 and Morbid obesity E66.01 [facility] [address] [id number], [place] [id number] Jul, [facility] [address] [id number], [place] [id number] Jul, [facility] [address] [facility] [address] [id number], [place] [id number] Jun, Pain in right knee M25.561 and Other chr onic pain G89.29 [facility] [address] [id number], [place] [id number] Jun, Benign essential hypertension I10 ; BMI 45.0-49.9, adult Z68.42 ; Morbid obesity E66.01 ; Vitamin D deficiency E55.9 ; Insomnia G47.00 ; 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 ; Edema R60.9 ; Recurrent major depressive disorder, in partial remission F33.41 ; Chronic fatigue R53.82 ; Acute pain of right knee M25.561 ; Metabolic syndrome E88.81 and Irritable mood R45.4 [place] [address] [place] [id number] [address] [place] [phone] 16 Jun, 2018 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 and BMI 45.0-49.9, adult Z68.42 [facility] [address] [place] [id number] [address] [place] [phone] Apr, [facility] [address] [facility] [id number] [address] [place] [phone] Apr, [facility] [address] [place] [id number] [address] [place] [phone] Apr, [facility] [address] [place] [id number] [address] [place] [phone] Apr, [facility] [address] [place] [id number] [address] [place] [phone] Mar, Mixed obsessional thoughts a nd acts F42.2 ; Recurrent major depressive disorder, in partial remission F33.41 ; DANIELA (generalized anxiety disorder) F41.1 and BMI 45.0-49.9, adult Z68.[address] [place] [id number] [place] [id number] Mar, [id number] [place] [address] [id number] Mar, BMI 45.0-49.9, adult Z68.42 ; Instabilit y of right knee joint M25.361 and Rash R21 [place] [address] [place] [id number] [address] [place] [phone] Jan, Recurrent major depressive d isorder, in partial remission F33.41 ; Mixed obsessional thoughts and acts F42.2 and BMI 45.0-49.9, adult Z68.[address] [id number] [place] [address] [id number] Jan, [place] [id number] [place] [address] [id number] Jan, Benign essential hypertension I10 ; BMI 45.0-49.9, adult Z68.42 ; Metabolic syndrome E88.81 and Allergic rhinitis, unspecified seasonality, unspecified trigger J30.9 [facility] [address] [facility] [id number] [address] [place] [phone] Dec, DANIELA (generalized anxiety dis order) F41.1 and Depressive disorder, not elsewhere classified F32.[address] [id number] [place] [id number] Dec, Recurrent major depressive disorder, in partial remission F33.[address] [id number] [place] [id number] Dec, [facility] [address] [id number], [place] [id number] Nov, [facility] [address] [id number], [place] [id number] Nov, Recurrent major depressive disorder, in partial remission F33.41 [facility] [address] [facility] [id number] [address] [place] [phone] Nov, Recurrent major depressive d isorder, in partial remission F33.41 ; Mixed obsessional thoughts and acts F42.2 ; DANIELA (generalized anxiety disorder) F41.1 and BMI 45.0-49.9, adult Z68.42 [facility] [address] [id number] [place] [employer] [id number] Nov, [facility] [address] [id number], [place] [id number] Nov, Other conjunctivitis of both eyes H10.89 and Sciatica, right side M54.31 [facility] [address] [id number], [place] [id number] Nov, [facility] [address] [id number], [place] [id number] Nov, [facility] [address] [id number], [place] [id number] October, [facility] [address] [id number], [place] [id number] October, [facility] [address] [facility] [id number] [address] [place] [phone] October, BMI 45.0-49.9, adult Z68.42 ; Mixed obsessional thoughts and acts F42.2 ; Recurrent major depressive disorder, in partial remission F33.41 and DANIELA (generalized anxiety disorder) F41.1 [facility] [address] [id number], [place] [id number] October, Benign essential hypertension I10 ; Morb id obesity E66.01 and BMI 45.0-49.9, adult Z68.[address] [id number] [place] [address] [id number] Sep, [facility] [address] [id number] [place] [address] [id number] Sep, [facility] [address] [id number] [place] [address] [id number] Sep, [facility] [address] [id number] [place] [address] [id number] Sep, Hospital discharge follow-up Z09 ; Aller gic rhinitis, unspecified seasonality, unspecified trigger J30.9 and Shortness of breath R06.02 [facility] [address] [id number], [place] [id number] Sep, Recurrent major depressive disorder, in partial remission F33.[address] [id number] [place] [address] [id number] Aug, Irritable mood R45.4 [place] [address] [place] [id number] [address] [place] [phone] Aug, [facility] [address] [id number] [place] [address] [id number] Jul, Benign essential hypertension I10 ; Robert a R60.9 and Impacted cerumen of left ear H61.22 [place] [address] [phone] Jul, Major depression F32.9 ; Rec urrent major depressive disorder, in partial remission F33.41 and Anxiety F41.9 [place] [address] [address] Jun, Major depression F32.9 ; Rec urrent major depressive disorder, in partial remission F33.41 and Anxiety F41.9 [facility] [address] [id number], [place] [id number] Jun, Major depression F32.9 ; Morbid obesity E66.01 ; Irritable mood R45.4 ; Hand weakness R29.898 and Vitamin D deficiency E55.9 [facility] [address] [id number], [place] [id number] Jun, [place] [address] [id number], [place] [id number] May, Major depression F32.9 [place] [address] [facility] [id number] [address] [place] [address] May, Major depression F32.[address] [id number], [place] [id number] May, BMI 50.0-59.9, adult Z68.43 ; Major depr ession F32.9 ; Anxiety F41.9 ; Hypertrophic toenail L60.2 and Pain of left great toe M79.[address] [id number], [place] [id number] May, Recurrent major depressive disorder, in partial remission F33.41 [place] [address] [place] [id number] [address] [place] [phone] Apr, [facility] [address] [id number], [place] [id number] Apr, [facility] [address] [facility] [id number] [address] [place] [phone] Apr, Major depression F32.9 [facility] [address] [id number], [place] [id number] Apr, Severe episode of recurrent major depres sive disorder, without 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 ; Anxiety F41.9 and Insomnia G47.00 [facility] [address] [id number], [place] [id number] Apr, [facility] [address] [facility] [id number] [address] [place] [phone] Apr, [facility] [address] [id number], [place] [id number] Apr, [facility] [address] [id number], [place] [id number] Mar, [facility] [address] [id number], [place] [id number] Mar, Allergic conjunctivitis of both eyes H10 .13 [facility] [address] [facility] [id number] [address] [place] [phone] Mar, Major depression F32.9 [facility] [address] [id number], [place] [id number] Mar, Metabolic syndrome E88.81 ; History of g astric bypass Z98.890 ; Benign essential hypertension I10 ; Allergic conjunctivitis of both eyes H10.13 and Morbid obesity E66.01 [facility] [address] [facility] [id number] [address] [place] [phone] Mar, Major depression F32.9 [facility] [address] [id number], [place] [id number] Feb, [facility] [address] [facility] [id number] [address] [place] [phone] Feb, Major depression F32.9 [facility] [address] [id number], [place] [id number] Feb, Subacute maxillary sinusitis J01.00 and Bronchitis J40 [facility] [address] [facility] [id number] [address] [place] [phone] Feb, Major depressive disorder, r ecurrent, moderate F33.1 [facility] [address] [id number], [place] [id number] Jan, [facility] [address] [id number], [place] [id number] Jan, Acute non-recurrent maxillary sinusitis J01.00 and Skin tag L91.8 [facility] [address] [place] [address] AVE [id number], [place] [id number] Jan, Cough R05 and Sinus congestion R09.81 [facility] [address] [id number], [place] [id number] Jan, [facility] [address] [id number], [place] [id number] Jan, Benign essential hypertension I10 ; Hist ory of gastric bypass Z98.890 and Nausea and vomiting in adult R11.2 [place] [id number] [place] [phone] 04 Jan, 2017 Major depressive disorder, r ecurrent, moderate F33.1 [place] [address] [place] [id number] [address] [place] [phone] 12 Dec, 2016 Insomnia G47.00 ; Recurrent major depressive disorder, in partial remission F33.41 and Morbid obesity E66.01 [facility] [address] [id number], [place] [id number] Dec, [facility] [address] [id number], [place] [id number] Dec, Chronic bacterial conjunctivitis of left eye H10.402 [facility] [address] [id number], [place] [id number] Nov, [facility] [address] [id number], [place] [id number] Nov, Dental examination Z01.20 [facility] [address] [id number] [place] [address] [id number] Nov, Benign essential hypertension I10 ; Hist ory of gastric bypass Z98.890 and Nausea and vomiting in adult R11.2 [place] [address] [place] [id number] [address] [place] [phone] Nov, Major depressive disorder, r ecurrent, moderate F33.1 ; Generalized anxiety disorder F41.1 and Insomnia due to other mental disorder F51.05 [place] [address] [facility] [id number] [address] [place] [address] Nov, Recurrent major depressive d isorder, in partial remission F33.41 ; Insomnia G47.00 and Morbid obesity E66.01 [facility] [address] [id number] [place] [id number] October, Abscess of left arm L02.414 [place] [address] [facility] [id number] [address] [place] [phone] October, Morbid obesity E66.01 ; Lida r depression F32.9 and Recurrent major depressive disorder, in partial remission F33.41 [facility] [address] [id number], [place] [id number] Sep, Benign essential hypertension I10 ; Morb id obesity E66.01 ; S/P gastric bypass Z98.84 ; Abscess L02.91 and Chronic bacterial conjunctivitis of left eye H10.402 [facility] [id number] [place] [address] [id number] Sep, Dental examination Z01.20 [place] [address] [facility] [id number] [address] [place] [phone] Sep, Morbid obesity E66.01 ; Lida r depression F32.9 and Recurrent major depressive disorder, in partial remission F33.41 [place] [address] [facility] [id number] [address] [place] [phone] Jul, [place] [address] [facility] [id number] [address] [place] [phone] Jul, Major depressive disorder, r ecurrent, moderate F33.1 [place] [address] [facility] [id number] [address] [place] [phone] Jul, Major depressive disorder, r ecurrent, moderate F33.1 and Generalized anxiety disorder F41.1 [facility] [address] [id number], [place] [id number] Jul, Cough R05 [facility] [address] [facility] [id number] [address] [place] [phone] Jul, Morbid obesity E66.01 ; Lida r depression F32.9 and Recurrent major depressive disorder, in partial remission F33.41 [facility] [address] [id number], [place] [id number] Jul, [facility] [address] [id number], [place] [id number] Jul, [place] [address] [id number] [place] [address] [id number] Jul, Gastroenteritis K52.9 and Cough R[address] [id number] [place] [address] [id number] Jun, Acute bacterial conjunctivitis of left e ye H10.32 [facility] [address] [place] [id number] [address] [place] [phone] Jun, [place] [address] [address] Jun, Recurrent major depressive d isorder, in partial remission F33.41 [facility] [address] [place] [id number] [address] [place] [phone] May, Major depression F32.9 and M orbid obesity E66.01 [facility] [address] [place] [id number] [address] [place] [address] May, [facility] [address] [facility] [address] [id number] [place] [address] [id number] May, Thrush B37.0 [facility] [address] [place] [id number] [address] [place] [phone] Apr, Major depressive disorder, r ecurrent, moderate F33.1 [facility] [address] [place] [id number] [address] [place] [phone] 15 Apr, 2016 Insomnia G47.00 ; Major depr ession F32.9 and Recurrent major depressive disorder, in partial remission F33.41 [facility] [address] [facility] [id number] [address] [place] [phone] Apr, [place] [address] [facility] [id number] [address] [place] [phone] Apr, Major depression F32.9 and R ecurrent major depressive disorder, in partial remission F33.[address] [place] [id number], [place] [id number] Mar, Benign essential hypertension I10 ; Morb id obesity E66.01 ; Impacted cerumen of both ears H61.23 ; Laceration of finger of right hand, initial encounter S61.219A and Encounter for immunization Z23 [facility] [address] [facility] [id number] [address] [place] [phone] 17 Mar, 2016 [place] [address] [facility] [id number] [address] [place] [phone] Mar, [place] [address] [facility] [id number] [address] [place] [address] Mar, [address] [id number], [place] [id number] Feb, Nausea R11.0 ; Blood in the stool K92.1 and Benign essential hypertension I10 [place] [address] [facility] [id number] [address] [place] [phone] Feb, Major depression F32.9 and R ecurrent major depressive disorder, in partial remission F33.41 [facility] [address] [id number], [place] [id number] Feb, [place] [address] [id number], [place] [id number] Feb, Recurrent major depressive disorder, in partial remission F33.41 [facility] [address] [id number], [place] [id number] Jan, [facility] [address] [id number], [place] [id number] Jan, Benign essential hypertension I10 ; Robert a R60.9 and Hyperlipidemia, unspecified hyperlipidemia type E78.5 [facility] [address] [id number], [place] [id number] Jan, Recurrent major depressive disorder, in partial remission F33.41 [facility] [place] [address] [id number] [place] [id number] Jan, [facility] [address] [id number], [place] [id number] Jan, [facility] [address] [id number], [place] [id number] Jan, [facility] [address] [facility] [id number] [address] [place] [phone] Jan, [facility] [address] [facility] [id number] [address] [place] [phone] Dec, [facility] [address] [facility] [id number] [address] [place] [phone] Nov, [facility] [address] [facility] [id number] [address] [place] [phone] Nov, Major depression F32.9 [facility] [address] [facility] [id number] [address] [place] [phone] Nov, [facility] [address] [facility] [id number] [address] [place] [phone] Nov, [facility] [address] [facility] [id number] [address] [place] [phone] Nov, Major depressive disorder, r ecurrent episode, mild F33.0 and Anxiety F41.9 [facility] [address] [id number], [place] [id number] Nov, [facility] [address] [id number], [place] [id number] October, Left elbow pain M25.522 and Other season al allergic rhinitis J30.2 [facility] [address] [facility] [address] [id number], [place] [id number] October, [facility] [address] [facility] [id number] [address] [place] [address] October, Major depressive disorder, r ecurrent, moderate F33.1 [facility] [address] [facility] [id number] [address] [place] [phone] October, Major depression F32.9 [facility] [address] [facility] [id number] [address] [place] [phone] Sep, [place] or callus L84 and Onych omycosis B35.1 [facility] [address] [facility] [id number] [address] [place] [address] Sep, Major depressive disorder, r ecurrent, moderate F33.1 [facility] [address] [facility] [id number] [address] [place] [phone] Sep, Major depression F32.9 [facility] [address] [facility] [id number] [address] [place] [address] Sep, Moderate episode of recurren t major depressive disorder F33.1 [facility] [address] [place] [address] AVE [id number], [place] [id number] Sep, Muscle strain T14.8 [facility] [address] [facility] [id number] [address] [place] [phone] Aug, Major depression F32.9 [facility] [address] [facility] [id number] [address] [place] [phone] Aug, Major depression F32.9 [facility] [address] [facility] [id number] [address] [place] [phone] Jul, Morbid obesity E66.01 and Ma cora depression F32.9 [facility] [address] [facility] [id number] [address] [place] [address] Jul, Depression, major, recurrent , moderate F33.[address] [id number], [place] [id number] Jul, [facility] [address] [facility] [id number] [address] [place] [phone] Jul, [facility] [address] [facility] [id number] [address] [place] [address] Jul, Major depression F32.9 and M orbid obesity E66.[address] [id number], [place] [id number] Jul, Type II diabetes mellitus E11.9 ; Callus of foot L84 ; Benign essential hypertension I10 and Renal insufficiency N28.9 [facility] [address] [facility] [id number] [address] [place] [phone] 09 Jul, 2015 Depression, major, recurrent , moderate F33.1 [facility] [address] [facility] [id number] [address] [place] [phone] Jul, Major depression F32.9 [facility] [address] [place] [id number] [address] [place] [phone] Jul, [facility] [address] [facility] [id number] [address] [place] [phone] Jun, Major depression F32.9 [facility] [address] [facility] [id number] [address] [place] [phone] Jun, Major depressive disorder, r ecurrent, moderate F33.1 [facility] [address] [facility] [id number] [address] [place] [phone] Jun, [place] [address] [facility] [id number] [address] [place] [address] Jun, Major depressive disorder, r ecurrent, moderate F33.1 and Major depression F32.[address] [id number], [place] [id number] Jun, Type II diabetes mellitus E11.9 [place] [address] [facility] [id number] [address] [place] [address] Jun, Depression, major, recurrent , moderate F33.1 [place] [address] [facility] [id number] [address] [place] [address] May, Major depressive disorder, r ecurrent, moderate F33.1 [place] [address] [facility] [id number] [address] [place] [address] May, [place] [address] [id number], [place] [id number] May, Edema R60.9 [place] [address] [facility] [id number] [address] [place] [id number] May, Insomnia G47.00 and Major de pression F32.[address] [place] [id number] [place] [id number] May, Morbid obesity E66.01 ; Edema R60.9 ; Sh ortness of breath R06.02 ; Benign essential hypertension I10 and Renal insufficiency N28.[address] [place] [place] [id number] [place] [id number] May, Hyperlipemia 272.4 and Renal insufficien cy N28.9 [place] [address] [address] [facility] [id number] [address] [place] [phone] Apr, Major depression F32.9 [place] [address] [address] [facility] [id number] [address] [place] [id number] Apr, [place] [address] [address] [facility] [id number] [address] [place] [id number] Apr, Major depressive disorder, r ecurrent, moderate F33.[address] [place] [place] [address] [id number] [id number] Apr, Type II diabetes mellitus E11.9 ; Benign essential hypertension I10 ; Edema R60.9 and Renal insufficiency N28.9 [place] [id number] [facility] [id number] [address] [place] [phone] Mar, Major depressive disorder, r ecurrent, moderate F33.1 [facility] [address] [facility] [id number] [address] [place] [id number] Mar, [facility] [address] [facility] [id number] [address] [place] [phone] Mar, Major depression F32.9 [facility] [id number] [place] [id number] Mar, Morbid obesity E66.01 ; Benign essential hypertension I10 and Type II diabetes mellitus E11.9 [place] [address] [address] [facility] [id number] [address] [place] [id number] Feb, Major depressive disorder, r ecurrent, moderate F33.1 [place] [address] [address] [place] [id number] [address] [place] [phone] Feb, Major depressive disorder, r ecurrent episode, in partial or unspecified remission 296.35 ; Anxiety state, unspecified 300.00 and Morbid obesity 278.01 [place] [address] [address] [place] [id number] [address] [place] [id number] Feb, [place] [address] [id number] [place] [id number] Feb, Vomiting 787.03 and Viral syndrome 079.9 [address] [place] [address] [place] [id number] [address] [place] [id number] 15 Feb, 2015 Major depression, recurrent 296.30 ; Generalized anxiety disorder 300.02 and No condition on [place] II V71.09 [facility] [id number] [place] [address] [id number] Feb, Skin tag 701.9 [facility] [address] [facility] [id number] [address] [place] [address] Feb, [place] [address] [place] [id number] [address] [place] [address] Jan, Depression, major, recurrent , moderate 296.[address] [id number] [id number] Jan, Nausea and vomiting 787.01 ; Rib pain on right side 786.50 and Fall on or from sidewalk curb E880.1 [facility] [address] [facility] [id number] [address] [place] [phone] Jan, [facility] [address] [place] [id number] [address] [place] [address] Jan, Major depressive disorder, r ecurrent episode, in partial or unspecified remission 296.35 and Anxiety state, unspecified 300.[address] [id number] [id number] Jan, [facility] [address] [facility] [id number] [address] [place] [address] Jan, Depression, major, recurrent , moderate 296.32 [facility] [address] [facility] [id number] [address] [place] [id number] Jan, Major depression, recurrent 296.30 ; No condition on [place] II V71.09 and No condition on axis III V71.[address] [id number] [id number] Jan, Drug-induced nausea and vomiting 787.01 [facility] [address] [facility] [id number] [address] [place] [id number] Jan, Depression, major, recurrent , moderate 296.32 [place] [address] [facility] [id number] [address] [place] [address] Dec, Depression, major, recurrent , moderate 296.[address] [id number][place] [id number] Dec, Morbid obesity 278.01 ; Metabolic syndro me 277.7 ; Hyperlipemia 272.4 ; Benign essential hypertension 401.1 ; Dietary counseling V65.3 ; Exercise counseling V65.41 and Inflamed skin tag 701.9 [place] [id number] [address] Dec, Depression, major, recurrent , moderate 296.32 [place] [address] [address] Dec, [place] [address] [address] Dec, Major depression, recurrent 296.30 ; Anxiety, generalized 300.02 and No condition on [place] II V71.09 [place] [address] [address] Dec, Depression, major, recurrent , moderate 296.32 [place] [address] [id number] Dec, Major depressive disorder, r ecurrent episode, moderate 296.[address] [address] Dec, Depression, major, recurrent , moderate 296.32 [place] [address] [address] Dec, Depression, major, recurrent , moderate 296.32 [place] [address] [address] Dec, Depression, major, recurrent , moderate 296.32 [place] [address] [address] Dec, Depression, major, recurrent , moderate 296.32 [place] [address] [address] Nov, Depression, major, recurrent , moderate 296.32 [place] [address] [address] Nov, Major depression 296.20 ; So cial phobia 300.23 and No condition on [place] II V71.09 [place] [address] [id number] [address] 16 Nov, 2014 Depression, major, recurrent , moderate 296.32 [facility] [address] [facility] [id number] [address] [place] [id number] 09 Nov, 2014 Major depressive disorder, r ecurrent episode, moderate 296.32 and Generalized anxiety disorder 300.02 [facility] [address] [facility] [id number] [address] [place] [address] Nov, Depression, major, recurrent , moderate 296.32 [facility] [address] [facility] [id number] [address] [place] [address] Nov, Depression, major, recurrent , moderate 296.32 [facility] [address] [place] [id number] [place] [address] October, Generalized anxiety disorder 300.02 ; No condition on [place] II V71.09 and Major depressive disorder, recurrent 296.30 [facility] [address] [place] [id number] [address] [place] [address] Sep, [facility] [address] [place] [id number] [address] [place] [address] Sep, [facility] [address] [place] [id number] [address] [place] [address] Aug, [facility] [address] [place] [id number] [address] [place] [address] Aug, [facility] [address] [place] [id number] [address] [place] [address] Aug, [facility] [address] [place] [id number] [address] [place] [address] Aug, [facility] [address] [place] [id number] [address] [place] [address] Aug, [facility] [address] [place] [id number] [address] [place] [address] Aug, [facility] [address] [place] [id number] [address] [place] [id number] 20 Aug, 2014 [facility] [address] [id number] [address] [place] [address], [place] [id number] 20 Aug, 2014 [facility] [place] [facility] [address] [id number] [address] [place] [address], [place] [id number] 13 Aug, 2014 [facility] [place] [facility] [address] [id number] [address] [place] [address], [place] [id number] 13 Aug, 2014 [facility] [place] [facility] [address] [id number] [address] [place] [address], [place] [id number] 13 Aug, 2014 [facility] [place] [facility] [address] [id number] [address] [place] [address], [place] [id number] Aug, [facility] [place] [facility] [address] [id number] [address] [place] [address], [place] [id number] Aug, [facility] [place] [facility] [address] [id number] [address] [place] [address], [place] [id number] Aug, [facility] [place] [facility] [address] [id number] [address] [place] [address], [place] [id number] 10 Aug, 2014 [facility] [place] [facility] [address] [id number] [address] [place] [address], [place] [id number] 10 Aug, 2014 [facility] [place] [facility] [address] [id number] [address] [place] [address], [place] [id number] Aug, [facility] [place] [facility] [address] [id number] [address] [place] [address], [place] [id number] Aug, [facility] [place] [facility] [address] [id number] [address] [place] [address], [place] [id number] 24 Jul, 2014 [facility] [place] [facility] [address] [id number] [address] [place] [address], [place] [id number] Jul, [facility] [place] [facility] [address] [id number] [address] [place] [address], [place] [id number] 16 Jul, 2014 [facility] [place] [facility] [address] [id number] [address] [place] [address], [place] [id number] 16 Jul, 2014 [facility] [place] [facility] [address] [id number] [address] [place] [address], [place] [id number] Jul, [facility] [address] [id number] [address] [place] [address], [place] [id number] Jul, [facility] [address] [id number] [address] [place] [address], [place] [id number] Jun, [facility] [address] [id number] [address] [place] [address], [place] [id number] Jun, [facility] [address] [id number] [address] [place] [address], [place] [id number] Jun, [facility] [address] [id number] [address] [place] [address], [place] [id number] Jun, [facility] [address] [id number] [address] [place] [address], [place] [id number] Jun, [facility] [address] [id number] [address] [place] [address], [place] [id number] Jun, [facility] [address] [id number] [address] [place] [address], [place] [id number] Jun, [facility] [address] [id number] [address] [place] [address], [place] [id number] Jun, [facility] [address] [id number] [address] [place] [address], [place] [id number] Jun, [facility] [address] [id number] [address] [place] [address], [place] [id number] Jun, [facility] [address] [id number] [address] [place] [address], [place] [id number] Jun, [facility] [address] [id number] [address] [place] [address], [place] [id number] Jun, [facility] [address] [id number] [place] [id number] Jun, [facility] [address] [id number] [address] [place] [address], [place] [id number] Jun, [facility] [address] [id number] [address] [place] [address], [place] [id number] Jun, [facility] [place] [facility] [address] [id number] [address] [place] [address], [place] [id number] Jun, [facility] [address] [id number] [address] [place] [address], [place] [id number] May, [facility] [place] [facility] [address] [id number] [address] [place] [address], [place] [id number] May, [facility] [address] [id number] [address] [place] [address], [place] [id number] May, [facility] [place] [facility] [address] [id number] [address] [place] [address], [place] [id number] May, [facility] [place] [facility] [address] [id number] [address] [place] [address], [place] [id number] Apr, [facility] [place] [facility] [address] [id number] [address] [place] [address], [place] [id number] Apr, [facility] [place] [facility] [address] [id number] [address] [place] [address], [place] [id number] Apr, [facility] [place] [facility] [address] [id number] [address] [place] [address], [place] [id number] Apr, [facility] [place] [facility] [address] [id number] [address] [place] [address], [place] [id number] Apr, [facility] [place] [facility] [address] [id number] [address] [place] [address], [place] [id number] Apr, [facility] [place] [facility] [address] [id number] [address] [place] [address], [place] [id number] Apr, [facility] [place] [facility] [address] [id number] [address] [place] [address], [place] [id number] Apr, [facility] [place] [facility] [address] [id number] [address] [place] [address], [place] [id number] Apr, [facility] [place] [facility] [address] [id number] [address] [place] [address], [place] [id number] Apr, [facility] [place] [facility] [address] [id number] [address] [place] [address], [place] [id number] Apr, [facility] [place] [facility] [address] [id number] [address] [place] [address], [place] [id number] Apr, [facility] [place] [facility] [address] [id number] [address] [place] [address], [place] [id number] Apr, [facility] [place] [facility] [address] [id number] [address] [place] [address], [place] [id number] Apr, [facility] [place] [facility] [address] [id number] [address] [place] [address], [place] [id number] Apr, [facility] [place] [facility] [address] [id number] [address] [place] [address], [place] [id number] Apr, [facility] [place] [facility] [address] [id number] [address] [place] [address], [place] [id number] Apr, [facility] [place] [facility] [address] [id number] [address] [place] [address], [place] [id number] Apr, [facility] [place] [facility] [address] [id number] [address] [place] [address], [place] [id number] Apr, [facility] [place] [facility] [address] [id number] [address] [place] [address], [place] [id number] Apr, [facility] [place] [facility] [address] [id number] [address] [place] [address], [place] [id number] Mar, [facility] [place] [facility] [address] [id number] [address] [place] [address], [place] [id number] Mar, [facility] [place] [facility] [address] [id number] [address] [place] [address], [place] [id number] Mar, [facility] [place] [facility] [address] [id number] [address] [place] [address], [place] [id number] Mar, [facility] [place] [facility] [address] [id number] [address] [place] [address], [place] [id number] Mar, [facility] [place] [facility] [address] [id number] [address] [place] [address], [place] [id number] Mar, [facility] [place] [facility] [address] [id number] [address] [place] [address], [place] [id number] Mar, [facility] [place] [facility] [address] [id number] [address] [place] [address], [place] [id number] Mar, [facility] [place] [facility] [address] [id number] [address] [place] [address], [place] [id number] Mar, [facility] [place] [facility] [address] [id number] [address] [place] [address], [place] [id number] Mar, [facility] [place] [facility] [address] [id number] [address] [place] [address], [place] [id number] Feb, [facility] [place] [facility] [address] [id number] [address] [place] [address], [place] [id number] Feb, [facility] [place] [facility] [address] [id number] [address] [place] [address], [place] [id number] Feb, [facility] [place] [facility] [address] [id number] [address] [place] [address], [place] [id number] Feb, [facility] [place] [facility] [address] [id number] [address] [place] [address], [place] [id number] Jan, [facility] [place] [facility] [address] [id number] [address] [place] [address], [place] [id number] Jan, [facility] [place] [facility] [address] [id number] [address] [place] [address], [place] [id number] Jan, [facility] [place] [facility] [address] [id number] [address] [place] [address], [place] [id number] Jan, [facility] [place] [facility] [address] [id number] [address] [place] [address], [place] [id number] Jan, [facility] [place] [facility] [address] [id number] [address] [place] [address], [place] [id number] Jan, [facility] [place] [facility] [address] [id number] [address] [place] [address], [place] [id number] Dec, [facility] [address] [id number] [facility] [id number] Dec, [facility] [place] [facility] [address] [id number] [address] [place] [address], [place] [id number] Nov, [facility] [address] [id number] [address] [place] [address], [place] [id number] Nov, [facility] [place] [facility] [address] [id number] [address] [place] [address], [place] [id number] Nov, [facility] [address] [id number] [address] [place] [address], [place] [id number] Nov, [facility] [address] [id number] [address] [place] [address], [place] [id number] Nov, [facility] [address] [id number] [address] [place] [address], [place] [id number] Nov, [facility] [place] [facility] [address] [id number] [address] [place] [address], [place] [id number] Sep, [facility] [address] [id number] [address] [place] [address], [place] [id number] Sep, [facility] [place] [facility] [address] [id number] [address] [place] [address], [place] [id number] Sep, [facility] [place] [facility] [address] [id number] [address] [place] [address], [place] [id number] Sep, [facility] [place] [facility] [address] [id number] [address] [place] [address], [place] [id number] Aug, [facility] [place] [facility] [address] [id number] [address] [place] [address], [place] [id number] Aug, [facility] [place] [facility] [address] [id number] [address] [place] [address], [place] [id number] Jul, [facility] [place] [facility] [address] [id number] [address] [place] [address], [place] [id number] Jul, [facility] [place] [facility] [address] [id number] [address] [place] [address], [place] [id number] Jun, [facility] [address] [id number] [address] [place] [address], [place] [id number] Jun, [facility] [address] [id number] [address] [place] [address], [place] [id number] Jun, [facility] [address] [id number] [address] [place] [address], [place] [id number] Jun, [facility] [address] [id number] [address] [place] [address], [place] [id number] May, [facility] [address] [id number] [address] [place] [address], [place] [id number] May, [facility] [address] [id number] [address] [place] [address], [place] [id number] May, [facility] [address] [id number] [address] [place] [address], [place] [id number] May, [facility] [address] [id number] [address] [place] [address], [place] [id number] May, [facility] [address] [id number] [address] [place] [address], [place] [id number] May, [facility] [address] [id number] [address] [place] [address], [place] [id number] Apr, [facility] [address] [id number] [address] [place] [address], [place] [id number] Apr, [facility] [address] [id number] [address] [place] [address], [place] [id number] Apr, [facility] [address] [id number] [address] [place] [address], [place] [id number] Apr, [facility] [address] [id number] [address] [place] [address], [place] [id number] Mar, [facility] [address] [id number] [address] [place] [address], [place] [id number] Mar, [facility] [address] [id number] [address] [place] [address], [place] [id number] Mar, [facility] [address] [id number] [address] [place] [address], [place] [id number] Mar, [facility] [address] [id number] [address] [place] [address], [place] [id number] Feb, [facility] [address] [id number] [place] [id number] Jan, [facility] [address] [id number] [address] [place] [address], [place] [id number] Jan, [facility] [address] [id number] [address] [place] [address], [place] [id number] Dec, [facility] [address] [id number] [address] [place] [address], [place] [id number] Dec, [facility] [address] [id number] [address] [place] [address], [place] [id number] Dec, [facility] [address] [facility] [address] [id number] [place] [id number] Dec, [facility] [address] [id number] [address] [place] [address], [place] [id number] Nov, [facility] [address] [id number] [address] [place] [address], [place] [id number] Nov, [facility] [address] [id number] [address] [place] [id number] Nov, [facility] [place] [facility] [address] [id number] [address] [place] [address], [place] [id number] Nov, [facility] [place] [facility] [address] [id number] [address] [place] [address], [place] [id number] Nov, [facility] [place] [facility] [address] [id number] [address] [place] [address], [place] [id number] October, [facility] [place] [facility] [address] [id number] [address] [place] [id number] October, [facility] [address] [facility] [id number] [place] [address] Aug, [facility] [address] [facility] [id number] [address] [place] [id number] Nov, IMMUNIZATIONS No Known Immunizations SOCIAL HISTORY [...] 04/2019 Hospitalization History gastric sleeve Hospitalization History [facility] ER Trouble with left shoulder blade 08/2017
--- OUTSIDE RECORDS SUMMARY | 2019-11-29 08:57 | XMS REPORT ---
Author Author Curt DIAZ [facility] Address [address] [place] [address] Care Team Providers Care Senior Statistician Name Role Phone CHRIS DIAZ Unavailable PROBLEMS Type Condition ICD9-CM Code [id number] Code Onset Dates Condition S tatus SNOMED Code Problem Edema R60.9 Active 277506203 Problem Morbid obesity E66.01 Active 60914 6002 Problem Metabolic syndrome E88.81 Active 2 77702813 Problem Renal insufficiency N28.9 Active 145811143 Problem Vitamin D deficiency E55.9 Active 84620992 Problem Severe episode of recurrent major depressive disorder, without 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 Active 15735294 Problem DANIELA (generalized anxiety disorder) F41.1 Active 49980350 Problem Mixed obsessional thoughts and acts F42.2 Active 98355824 Problem Chronic fatigue R53.82 Active 8422 9001 Problem Other chronic pain G89.29 Active 8 4984694 Problem Borderline personality disorder F60.3 Active 94140504 Problem Attachment disorder F94.1 Active Problem Sciatica, right side M54.31 Active 190579977670683 Problem Insomnia G47.00 Active 796118708 Problem Anxiety F41.9 Active 50728082 Problem BMI 45.0-49.9, adult Z68.42 Active 732895196 Problem Hyperlipemia E78.5 Active 5760059 4 Problem Benign essential hypertension I10 Active 9379959 Problem Callous ulcer, limited to breakdown of skin L98.49 1 Active Problem Hammer toe of right foot M20.41 Activ e 154222677 Problem Hammer toe of second toe of right foot M20.41 Active 449249015 Problem Falling episodes R29.6 Active [id number] ALLERGIES No Information ENCOUNTERS Encounter Location Date Diagnosis [facility] [place] [address] [facility] [id number] [place] [address] Dec, [facility] [place] [address] [place] [id number] [address] [place] [id number] 15 Dec, [address] [facility] [address] [id number][place] [id number] 14 Dec, 2019 [facility] [address] [id number] [address] [place] [phone] Dec, [facility] [place] [address] [id number] [address] [place] [id number] Nov, [facility] [place] [address] [id number] [address] [place] [phone] Nov, [facility] [place] [address] [id number] [address] [place] [id number] October, [facility] [place] [address] [id number] [address] [place] [id number] October, [facility] [place] [address] [id number] [address] [place] [phone] October, [facility] [id number] [place] [address] [id number] Sep, [facility] [place] [address] [id number] [address] [place] [id number] Sep, [facility] [address] [id number] [place] [address] [id number] Sep, [facility] [place] [address] [id number] [address] [place] [phone] 28 Sep, 2019 [facility] [place] [address] [id number] [address] [place] [phone] 24 Sep, 2019 [facility] [place] [address] [id number] [address] [place] [address] Sep, [facility] [place] [address] [id number] [address] [place] [phone] Sep, [facility] [place] [address] [id number] [address] [place] [phone] Sep, DANIELA (generalized anxiety dis order) F41.1 ; Severe episode of recurrent major depressive disorder, without 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 ; Mixed obsessional thoughts and acts F42.2 and Borderline personality disorder F60.3 [facility] [address] [facility] [id number] [place] [address] Sep, Severe episode of recurrent major depres sive disorder, without 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 [facility] [address] [id number][place] [id number] Sep, [facility] [address] [id number], [place] [id number] Sep, [facility] [address] [id number], [place] [id number] Sep, Benign essential hypertension I10 [facility] [place] [address] [facility] [facility] [id number] [address] [place] [phone] Sep, [facility] [place] [address] [facility] [id number] [address] [place] [address] Sep, [facility] [place] [address] [facility] [id number] [address] [place] [phone] Sep, [facility] [place] [address] [facility] [id number] [address] [place] [phone] Sep, DANIELA (generalized anxiety dis order) F41.1 ; Severe episode of recurrent major depressive disorder, without 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 ; Mixed obsessional thoughts and acts F42.2 and Borderline personality disorder F60.3 [facility] [address] [id number], [place] [id number] Aug, [facility] [place] [address] [facility] [id number] [address] [place] [address] Aug, [facility] [address] [id number], [place] [id number] Aug, [facility] [place] [address] [facility] [id number] [address] [place] [phone] Aug, [facility] [address] [id number], [place] [id number] 17 Aug, 2019 Dizzy R42 ; Weight gain R63.5 ; Benign e ssential hypertension I10 ; Falling episodes R29.6 and History of gastric bypass Z98.84 [facility] [place] [address] [id number] [address] [place] [phone] 14 Aug, 2019 [facility] [place] [address] [id number] [address] [place] [id number] 13 Aug, 2019 [facility] [place] [address] [facility] [id number] [address] [place] [id number] 11 Aug, 2019 DANIELA (generalized anxiety dis order) F41.1 ; Severe episode of recurrent major depressive disorder, without 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 ; Mixed obsessional thoughts and acts F42.2 and Borderline personality disorder F60.[id number] [place] [address] [id number] Aug, [place] [id number] [place] [address] [id number] Aug, [place] [address] [facility] [id number] [address] [place] [phone] Aug, [address] [id number] [place] [id number] Aug, [address] [id number] [place] [address] [id number] Aug, [place] [address] [facility] [id number] [address] [place] [address] Aug, [address] [id number] [place] [address] [id number] Aug, Severe episode of recurrent major depres sive disorder, without 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 ; Borderline personality disorder F60.3 ; Anxiety F41.9 and Attachment disorder F94.1 [place] [address] [place] [id number] [address] [place] [phone] Jul, [place] [address] [facility] [id number] [address] [place] [phone] 24 Jul, 2019 DANIELA (generalized anxiety dis order) F41.1 ; Severe episode of recurrent major depressive disorder, without 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 ; Mixed obsessional thoughts and acts F42.2 and Borderline personality disorder F60.3 [place] [address] [facility] [address] [id number], [place] [id number] Jul, [facility] [place] [address] [facility] [id number] [address] [place] [phone] Jul, [facility] [place] [address] [facility] [id number] [address] [place] [id number] 14 Jul, 2019 [facility] [place] [address] [facility] [id number] [address] [place] [id number] 12 Jul, 2019 [facility] [place] [address] [facility] [id number] [address] [place] [phone] Jul, [facility] [place] [address] [facility] [id number] [address] [place] [phone] Jun, DANIELA (generalized anxiety dis order) F41.1 ; Severe episode of recurrent major depressive disorder, without 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 ; Mixed obsessional thoughts and acts F42.2 and Borderline personality disorder F60.[address] [id number], [place] [id number] Jun, [facility] [address] [facility] [address] [id number], [place] [id number] Jun, [facility] [place] [address] [facility] [id number] [address] [place] [phone] Jun, [facility] [place] [address] [facility] [id number] [address] [place] [phone] Jun, DANIELA (generalized anxiety dis order) F41.1 ; Severe episode of recurrent major depressive disorder, without 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 ; Mixed obsessional thoughts and acts F42.2 and Borderline personality disorder F60.[address] [place] [address] [id number], [place] [id number] Jun, [facility] [id number], [place] [id number] Jun, [facility] [address] [id number], [place] [id number] Jun, [facility] [address] [facility] [address] [id number], [place] [id number] Jun, Benign essential hypertension I10 ; Morb id obesity E66.01 ; Severe episode of recurrent major depressive disorder, without 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 ; Excess skin L98.7 and Hyperlipemia E78.5 [place] [address] [place] [place] [id number] [place] [phone] Jun, [place] [address] [place] [id number] [place] [phone] May, [place] [address] [phone] May, Severe episode of recurrent major depressive disorder, without 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 ; Mixed obsessional thoughts and acts F42.2 ; DANIELA (generalized anxiety disorder) F41.1 and Borderline personality disorder F60.3 [place] [address] [place] [id number] [address] [place] [phone] May, [facility] [place] [address] [place] [id number] [address] [place] [phone] May, DANIELA (generalized anxiety dis order) F41.1 ; Severe episode of recurrent major depressive disorder, without 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 ; Mixed obsessional thoughts and acts F42.2 and Borderline personality disorder F60.3 [place] [address] [place] [id number] [address] [place] [phone] May, [facility] [place] [address] [place] [id number] [address] [place] [phone] May, [facility] [place] [address] [place] [id number] [address] [place] [address] May, Severe episode of recurrent major depressive disorder, without 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 ; Mixed obsessional thoughts and acts F42.2 ; Borderline personality disorder F60.3 and DANIELA (generalized anxiety disorder) F41.1 [facility] [address] [id number] [address] [place] [address] [id number] May, Caries K02.9 [facility] [address] [id number], [place] [id number] May, Benign essential hypertension I10 [facility] [address] [id number], [place] [id number] Apr, [facility] [address] [id number], [place] [id number] Apr, Benign essential hypertension I10 [facility] [place] [address] [id number] [address] [place] [phone] Apr, Borderline personality disor romero F60.3 ; DANIELA (generalized anxiety disorder) F41.1 ; Mixed obsessional thoughts and acts F42.2 and Severe episode of recurrent major depressive disorder, without 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 [facility] [address] [id number], [place] [id number] Apr, [facility] [address] [id number], [place] [id number] Apr, Benign essential hypertension I10 [facility] [place] [id number] [place] [address] Apr, Severe episode of recurrent major depressive disorder, without 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 ; DANIELA (generalized anxiety disorder) F41.1 ; Borderline personality disorder F60.3 and Mixed obsessional thoughts and acts F42.2 [facility] [address] [id number] [address] [place] [address] [id number] Apr, Dental examination Z01.20 [facility] [address] [id number] [address] [place] [address] [id number] Apr, Caries K02.9 and Dental exam ination Z01.20 [facility] [place] [address] [id number] [address] [place] [address] Apr, DANIELA (generalized anxiety dis order) F41.1 ; Severe episode of recurrent major depressive disorder, without 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 ; Mixed obsessional thoughts and acts F42.2 and Borderline personality disorder F60.3 [facility] [place] [address] [facility] [id number] [address] [place] [id number] Mar, Severe episode of recurrent major depressive disorder, without 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 ; Mixed obsessional thoughts and acts F42.2 ; Borderline personality disorder F60.3 and DANIELA (generalized anxiety disorder) F41.1 [place] [address] [facility] [id number] [address] [place] [address] Mar, Severe episode of recurrent major depressive disorder, without 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 ; Mixed obsessional thoughts and acts F42.2 ; DANIELA (generalized anxiety disorder) F41.1 and Borderline personality disorder F60.3 [facility] [address] [place] [id number] [address] [place] [address] [id number] Mar, Dental examination Z01.20 an d Caries K02.9 [facility] [id number] [place] [address] [id number] Mar, Benign essential hypertension I10 and Fa lling episodes R29.6 [facility] [place] [address] [facility] [id number] [address] [place] [phone] Mar, [place] [address] [facility] [id number] [address] [place] [address] Mar, Severe episode of recurrent major depressive disorder, without 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 ; Mixed obsessional thoughts and acts F42.2 ; Borderline personality disorder F60.3 and DANIELA (generalized anxiety disorder) F41.1 [place] [address] [facility] [id number] [address] [place] [address] Mar, [facility] [place] [address] [facility] [id number] [address] [place] [phone] Mar, [facility] [address] [id number], [place] [id number] Mar, [facility] [place] [address] [facility] [id number] [address] [place] [address] Mar, Severe episode of recurrent major depressive disorder, without 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 ; Mixed obsessional thoughts and acts F42.2 ; Borderline personality disorder F60.3 and DANIELA (generalized anxiety disorder) F41.1 [facility] [place] [address] [facility] [id number] [address] [place] [address] Mar, [facility] [address] [id number] [address] [place] [address] [id number] Feb, Dental examination Z01.20 an d Periodontitis K05.30 [facility] [place] [address] [facility] [id number] [address] [place] [phone] Feb, DANIELA (generalized anxiety dis order) F41.1 ; Severe episode of recurrent major depressive disorder, without 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 ; Mixed obsessional thoughts and acts F42.2 and Borderline personality disorder F60.3 [facility] [address] [id number], [place] [id number] Feb, Acute pain of right knee M25.561 ; Fall, initial encounter W19.XXXA ; Benign essential hypertension I10 and Edema R60.9 [facility] [place] [address] [facility] [id number] [address] [place] [phone] Feb, [facility] [place] [address] [facility] [id number] [address] [place] [phone] Feb, DANIELA (generalized anxiety dis order) F41.1 ; Severe episode of recurrent major depressive disorder, without 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 ; Mixed obsessional thoughts and acts F42.2 and Borderline personality disorder F60.3 [facility] [place] [address] [facility] [id number] [address] [place] [id number] Feb, [facility] [place] [address] [facility] [id number] [address] [place] [address] Jan, [facility] [place] [address] [facility] [id number] [address] [place] [phone] Jan, [facility] [place] [address] [facility] [id number] [address] [place] [phone] Jan, [facility] [address] [facility] [id number] [place] [address] [id number] Jan, Callus of heel L84 ; Fissure in skin R23 .4 and Hammer toe of second toe of right foot M20.41 [facility] [address] [place] [address] AVE [id number] [place] [address] [id number] Jan, [facility] [place] [address] [place] [id number] [address] [place] [phone] Jan, [facility] [place] [address] [place] [id number] [place] [phone] Jan, [place] [address] [address] Jan, Severe episode of recurrent major depressive disorder, without 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 ; DANIELA (generalized anxiety disorder) F41.1 ; Mixed obsessional thoughts and acts F42.2 and Borderline personality disorder F60.3 [facility] [place] [id number] [place] [address] Jan, [facility] [address] [place] [address] [id number] [place] [address] [id number] Jan, Benign essential hypertension I10 [facility] [address] [place] [address] [id number] [place] [address] [id number] Dec, Callous ulcer, limited to breakdown of s kin L98.491 and Morbid obesity E66.01 [facility] [place] [address] [facility] [id number] [address] [place] [phone] Dec, [facility] [place] [address] [place] [id number] [address] [place] [address] Dec, [facility] [place] [address] [place] [id number] [address] [place] [phone] Dec, [facility] [place] [address] [facility] [id number] [address] [place] [id number] Dec, [facility] [place] [address] [facility] [id number] [address] [place] [id number] Dec, Severe episode of recurrent major depressive disorder, without 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 [facility] [place], [facility] [address] [facility] [id number] [address] [place] [id number] Dec, DANIELA (generalized anxiety dis order) F41.1 ; Severe episode of recurrent major depressive disorder, without 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 ; Mixed obsessional thoughts and acts F42.2 and 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 [facility] [address] [id number] [id number] Dec, Morbid obesity E66.01 [facility] [place] [address] [facility] [id number] [address] [place] [id number] Dec, [facility] [place] [address] [facility] [id number] [address] [place] [id number] Dec, [facility] [address] [id number] [address] Nov, [facility] [address] [id number] [id number] Nov, [facility] [place] [address] [facility] [id number] [address] [place] [id number] Nov, [facility] [place] [address] [facility] [id number] [address] [place], [place] [phone] Nov, [facility] [place] [address] [facility] [id number] [address] [place] [phone] Nov, DANIELA (generalized anxiety dis order) F41.1 ; Severe episode of recurrent major depressive disorder, without 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 ; Mixed obsessional thoughts and acts F42.2 and 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 [facility] [address] [id number], [place] [id number] Nov, Morbid obesity E66.01 [facility] [place] [address] [facility] [id number] [address] [place] [phone] Nov, [facility] [place] [address] [facility] [id number] [address] [place] [id number] Nov, DANIELA (generalized anxiety dis order) F41.1 ; Mixed obsessional thoughts and acts F42.2 ; Severe episode of recurrent major depressive disorder, without 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 and 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 [facility] [address] [id number], [place] [id number] October, Morbid obesity E66.01 [facility] [address] [id number], [place] [id number] October, Benign essential hypertension I10 and Mo rbid obesity E66.01 [facility] [address] [id number], [place] [id number] October, [facility] [place] [address] [place] [id number] [address] [place] [phone] October, Severe episode of recurrent major depressive disorder, without 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 [facility] [address] [id number], [place] [id number] October, Morbid obesity E66.01 [facility] [address] [id number], [place] [id number] October, [facility] [place] [address] [facility] [id number] [address] [place] [phone] October, Severe episode of recurrent major depressive disorder, without 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 ; DANIELA (generalized anxiety disorder) F41.1 ; Mixed obsessional thoughts and acts F42.2 and 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 [facility] [address] [id number], [place] [id number] October, Morbid obesity E66.01 [facility] [address] [id number] [address] [place] [address] [id number] Sep, Dental examination Z01.20 [facility] [address] [id number], [place] [id number] Sep, [facility] [address] [facility] [id number] [place] [address] Sep, Sore in mouth K13.79 and Mor bid obesity E66.01 [facility] [place] [address] [facility] [id number] [address] [place] [id number] Sep, Dental examination Z01.20 [facility] [place] [address] [facility] [id number] [address] [place] [phone] Sep, Anxiety disorder, unspecifie d F41.[id number] [place] [address] [id number] Sep, Mouth ulcer K12.1 [facility] [address] [id number] [place] [address] [id number] Sep, Morbid obesity E66.01 [facility] [address] [place] [id number] [place] [address] [id number] Sep, Allergic rhinitis, unspecified seasonali ty, unspecified trigger J30.9 and Shortness of breath R06.02 [facility] [address] [id number], [place] [id number] Sep, 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 [facility] [address] [id number], [place] [id number] Aug, Mouth abscess K12.2 ; Mouth ulcer K12.1 ; Bloating R14.0 and Morbid obesity E66.01 [facility] [address] [id number], [place] [id number] Aug, [facility] [id number], [place] [id number] Aug, [facility] [address] [id number], [place] [id number] Jul, Major depressive disorder, recurrent, mo derate F33.1 ; Abscess of arm, left L02.414 ; BMI 45.0-49.9, adult Z68.42 and Morbid obesity E66.01 [facility] Jama [facility] [address] [id number], [place] [id number] Jul, [facility] [address] [id number], [place] [id number] Jul, [facility] [address] [id number], [place] [id number] Jun, Pain in right knee M25.561 and Other chr onic pain G89.29 [facility] [address] [id number], [place] [id number] Jun, Benign essential hypertension I10 ; BMI 45.0-49.9, adult Z68.42 ; Morbid obesity E66.01 ; Vitamin D deficiency E55.9 ; Insomnia G47.00 ; 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 ; Edema R60.9 ; Recurrent major depressive disorder, in partial remission F33.41 ; Chronic fatigue R53.82 ; Acute pain of right knee M25.561 ; Metabolic syndrome E88.81 and Irritable mood R45.4 [place] [address] [place] [id number] [address] [place] [phone] 16 Jun, 2018 [facility] [address] [id number], [place] [id number] Jun, Irritable mood R45.4 [facility] [place] [address] [place] [id number] [address] [place] [id number] May, [facility] [place] [address] [place] [id number] [address] [place] [id number] May, [facility] [place] [address] [place] [id number] [address] [place] [phone] May, Recurrent major depressive d isorder, in partial remission F33.41 ; Mixed obsessional thoughts and acts F42.2 ; 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 [id number] [address] [place] [phone] Apr, [facility] [place] [address] [place] [id number] [address] [place] [phone] Apr, [facility] [place] [address] [place] [id number] [address] [place] [phone] Apr, [facility] [place] [address] [place] [id number] [address] [place] [address] Mar, Mixed obsessional thoughts a nd acts F42.2 ; Recurrent major depressive disorder, in partial remission F33.41 ; DANIELA (generalized anxiety disorder) F41.1 and BMI 45.0-49.9, adult Z68.[address] [place] [id number] [place] [address] [id number] Mar, [address] [id number] [place] [address] [id number] Mar, BMI 45.0-49.9, adult Z68.42 ; Instabilit y of right knee joint M25.361 and Rash R21 [place] [address] [place] [id number] [address] [place] [phone] Jan, Recurrent major depressive d isorder, in partial remission F33.41 ; Mixed obsessional thoughts and acts F42.2 and BMI 45.0-49.9, adult Z68.[address] [place] [id number] [place] [address] [id number] Jan, [place] [id number] [place] [address] [id number] Jan, Benign essential hypertension I10 ; BMI 45.0-49.9, adult Z68.42 ; Metabolic syndrome E88.81 and Allergic rhinitis, unspecified seasonality, unspecified trigger J30.9 [facility] [place] [address] [facility] [id number] [address] [place] [id number] Dec, DANIELA (generalized anxiety dis order) F41.1 and Depressive disorder, not elsewhere classified F32.[address] [id number] [place] [id number] Dec, Recurrent major depressive disorder, in partial remission F33.[address] [id number] [place] [id number] Dec, [facility] [address] [id number], [place] [id number] Nov, [facility] [address] [id number], [place] [id number] Nov, Recurrent major depressive disorder, in partial remission F33.41 [facility] [place] [address] [facility] [id number] [address] [place] [address] Nov, Recurrent major depressive d isorder, in partial remission F33.41 ; Mixed obsessional thoughts and acts F42.2 ; DANIELA (generalized anxiety disorder) F41.1 and BMI 45.0-49.9, adult Z68.42 [facility] [address] [id number] [place] [id number] Nov, [facility] [address] [id number], [place] [id number] Nov, Other conjunctivitis of both eyes H10.89 and Sciatica, right side M54.31 [facility] [address] [id number], [place] [id number] Nov, [facility] [address] [id number], [place] [id number] Nov, [facility] [address] [id number], [place] [id number] October, [facility] [address] [id number], [place] [id number] October, [facility] [place] [address] [facility] [id number] [address] [place] [address] October, BMI 45.0-49.9, adult Z68.42 ; Mixed obsessional thoughts and acts F42.2 ; Recurrent major depressive disorder, in partial remission F33.41 and DANIELA (generalized anxiety disorder) F41.1 [facility] [address] [id number], [place] [id number] October, Benign essential hypertension I10 ; Morb id obesity E66.01 and BMI 45.0-49.9, adult Z68.[address] [id number] [place] [address] [id number] Sep, [facility] [address] [id number] [place] [address] [id number] Sep, [facility] [address] [id number] [place] [address] [id number] Sep, [facility] [address] [id number] [place] [address] [id number] Sep, Hospital discharge follow-up Z09 ; Aller gic rhinitis, unspecified seasonality, unspecified trigger J30.9 and Shortness of breath R06.02 [facility] [address] [id number], [place] [id number] Sep, Recurrent major depressive disorder, in partial remission F33.[address] [id number] [place] [address] [id number] Aug, Irritable mood R45.4 [place] [address] [place] [id number] [address] [place] [address] Aug, [facility] [address] [id number] [place] [address] [id number] Jul, Benign essential hypertension I10 ; Robert a R60.9 and Impacted cerumen of left ear H61.22 [place] [address] [address] Jul, Major depression F32.9 ; Rec urrent major depressive disorder, in partial remission F33.41 and Anxiety F41.9 [place] [address] [phone] Jun, Major depression F32.9 ; Rec urrent major depressive disorder, in partial remission F33.41 and Anxiety F41.9 [facility] [address] [id number], [place] [id number] Jun, Major depression F32.9 ; Morbid obesity E66.01 ; Irritable mood R45.4 ; Hand weakness R29.898 and Vitamin D deficiency E55.9 [facility] [address] [id number], [place] [id number] Jun, [place] [address] [id number], [place] [id number] May, Major depression F32.9 [place] [address] [facility] [id number] [address] [place] [phone] May, Major depression F32.[address] [id number], [place] [id number] May, BMI 50.0-59.9, adult Z68.43 ; Major depr ession F32.9 ; Anxiety F41.9 ; Hypertrophic toenail L60.2 and Pain of left great toe M79.[address] [address] [id number], [place] [id number] May, Recurrent major depressive disorder, in partial remission F33.41 [place] [address] [place] [id number] [address] [place] [address] Apr, [facility] [address] [id number], [place] [id number] Apr, [facility] [place] [address] [facility] [id number] [address] [place] [phone] Apr, Major depression F32.9 [facility] [address] [id number], [place] [id number] Apr, Severe episode of recurrent major depres sive disorder, without 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 ; Anxiety F41.9 and Insomnia G47.00 [facility] [address] [id number], [place] [id number] Apr, [facility] [place] [address] [facility] [id number] [address] [place] [phone] Apr, [facility] [address] [id number], [place] [id number] Apr, [facility] [address] [id number], [place] [id number] Mar, [facility] [address] [id number], [place] [id number] Mar, Allergic conjunctivitis of both eyes H10 .13 [facility] [place] [address] [facility] [id number] [address] [place] [address] Mar, Major depression F32.9 [facility] [address] [id number], [place] [id number] Mar, Metabolic syndrome E88.81 ; History of g astric bypass Z98.890 ; Benign essential hypertension I10 ; Allergic conjunctivitis of both eyes H10.13 and Morbid obesity E66.01 [facility] [place] [address] [facility] [id number] [address] [place] [phone] Mar, Major depression F32.9 [facility] [address] [id number], [place] [id number] Feb, [facility] [place] [address] [facility] [id number] [address] [place] [address] Feb, Major depression F32.9 [facility] [address] [id number], [place] [id number] Feb, Subacute maxillary sinusitis J01.00 and Bronchitis J40 [facility] [place] [address] [facility] [id number] [address] [place] [id number] Feb, Major depressive disorder, r ecurrent, moderate F33.1 [facility] [address] [id number], [place] [id number] Jan, [facility] [address] [id number], [place] [id number] Jan, Acute non-recurrent maxillary sinusitis J01.00 and Skin tag L91.8 [facility] [address] [place] [address] AVE [id number], [place] [id number] Jan, Cough R05 and Sinus congestion R09.81 [facility] [address] [id number], [place] [id number] Jan, [facility] [address] [id number], [place] [id number] Jan, Benign essential hypertension I10 ; Hist ory of gastric bypass Z98.890 and Nausea and vomiting in adult R11.2 [place] [id number] [place] [phone] 04 Jan, 2017 Major depressive disorder, r ecurrent, moderate F33.1 [place] [address] [place] [id number] [address] [place] [phone] 12 Dec, 2016 Insomnia G47.00 ; Recurrent major depressive disorder, in partial remission F33.41 and Morbid obesity E66.01 [facility] [address] [id number], [place] [id number] Dec, [facility] [address] [id number], [place] [id number] Dec, Chronic bacterial conjunctivitis of left eye H10.402 [facility] [address] [id number], [place] [id number] Nov, [facility] [address] [id number], [place] [id number] Nov, Dental examination Z01.20 [facility] [address] [id number] [place] [address] [id number] Nov, Benign essential hypertension I10 ; Hist ory of gastric bypass Z98.890 and Nausea and vomiting in adult R11.2 [place] [address] [place] [id number] [address] [place] [phone] Nov, Major depressive disorder, r ecurrent, moderate F33.1 ; Generalized anxiety disorder F41.1 and Insomnia due to other mental disorder F51.05 [place] [address] [facility] [id number] [address] [place] [address] Nov, Recurrent major depressive d isorder, in partial remission F33.41 ; Insomnia G47.00 and Morbid obesity E66.01 [facility] [address] [id number] [place] [id number] October, Abscess of left arm L02.414 [place] [address] [facility] [id number] [address] [place] [address] October, Morbid obesity E66.01 ; Lida r depression F32.9 and Recurrent major depressive disorder, in partial remission F33.41 [facility] [address] [id number], [place] [id number] Sep, Benign essential hypertension I10 ; Morb id obesity E66.01 ; S/P gastric bypass Z98.84 ; Abscess L02.91 and Chronic bacterial conjunctivitis of left eye H10.402 [facility] [id number] [place] [address] [id number] Sep, Dental examination Z01.20 [place] [address] [facility] [id number] [address] [place] [address] Sep, Morbid obesity E66.01 ; Lida r depression F32.9 and Recurrent major depressive disorder, in partial remission F33.41 [place] [address] [facility] [id number] [address] [place] [phone] Jul, [place] [address] [facility] [id number] [address] [place] [phone] Jul, Major depressive disorder, r ecurrent, moderate F33.1 [place] [address] [facility] [id number] [address] [place] [phone] Jul, Major depressive disorder, r ecurrent, moderate F33.1 and Generalized anxiety disorder F41.1 [facility] [address] [id number], [place] [id number] Jul, Cough R05 [facility] [place] [address] [facility] [id number] [address] [place] [address] Jul, Morbid obesity E66.01 ; Lida r depression F32.9 and Recurrent major depressive disorder, in partial remission F33.41 [facility] [address] [id number], [place] [id number] Jul, [facility] [address] [id number], [place] [id number] Jul, [place] [id number] [place] [address] [id number] Jul, Gastroenteritis K52.9 and Cough R05 [address] [id number] [place] [address] [id number] Jun, Acute bacterial conjunctivitis of left e ye H10.32 [facility] [place] [address] [place] [id number] [address] [place] [phone] Jun, [place] [address] [phone] Jun, Recurrent major depressive d isorder, in partial remission F33.41 [facility] [place] [address] [place] [id number] [address] [place] [address] May, Major depression F32.9 and M orbid obesity E66.01 [facility] [place] [address] [place] [id number] [address] [place] [id number] May, [facility] [address] [facility] [id number] [place] [address] [id number] May, Thrush B37.0 [facility] [place] [address] [place] [id number] [address] [place] [phone] Apr, Major depressive disorder, r ecurrent, moderate F33.1 [facility] [place] [address] [place] [id number] [address] [place] [address] 15 Apr, 2016 Insomnia G47.00 ; Major depr ession F32.9 and Recurrent major depressive disorder, in partial remission F33.41 [facility] [place] [address] [facility] [id number] [address] [place] [phone] Apr, [place] [address] [facility] [id number] [address] [place] [id number] Apr, Major depression F32.9 and R ecurrent major depressive disorder, in partial remission F33.[address] [place] [id number] [id number] [id number] Mar, Benign essential hypertension I10 ; Morb id obesity E66.01 ; Impacted cerumen of both ears H61.23 ; Laceration of finger of right hand, initial encounter S61.219A and Encounter for immunization Z23 [facility] [place] [address] [facility] [id number] [address] [place] [id number] 17 Mar, 2016 [place] [address] [facility] [id number] [address] [place] [id number] Mar, [place] [address] [facility] [id number] [address] [place] [id number] Mar, [address] [id number][place] [id number] Feb, Nausea R11.0 ; Blood in the stool K92.1 and Benign essential hypertension I10 [place] [address] [facility] [facility] [id number] [address] [place] [id number] Feb, Major depression F32.9 and R ecurrent major depressive disorder, in partial remission F33.41 [facility] [address] [id number][place] [id number] Feb, [place] [address] [id number] [id number] Feb, Recurrent major depressive disorder, in partial remission F33.41 [facility] [address] [id number][place] [id number] Jan, [facility] [address] [id number][place] [id number] Jan, Benign essential hypertension I10 ; Robert a R60.9 and Hyperlipidemia, unspecified hyperlipidemia type E78.5 [facility] [address] [id number][place] [id number] Jan, Recurrent major depressive disorder, in partial remission F33.41 [facility] [place] [place] [address] [id number] [place] [id number] Jan, [facility] [place] [address] [id number][place] [id number] Jan, [facility] [address] [id number][place] [id number] Jan, [facility] [place] [facility] [address] [facility] [id number] [address] [place] [id number] Jan, [facility] [place] [address] [facility] [id number] [address] [place] [phone] Dec, [facility] [place] [address] [facility] [id number] [address] [place] [address] Nov, [facility] [place] [address] [facility] [id number] [address] [place] [address] Nov, Major depression F32.9 [facility] [place] [address] [facility] [id number] [address] [place] [id number] Nov, [facility] [address] [facility] [id number] [address] [place] [address] Nov, [facility] [address] [facility] [id number] [address] [place] [id number] Nov, Major depressive disorder, r ecurrent episode, mild F33.0 and Anxiety F41.9 [facility] [address] [id number] [id number] Nov, [facility] [address] [address] [id number] [id number] October, Left elbow pain M25.522 and Other season al allergic rhinitis J30.2 [facility] [address] [address] [id number] [id number] October, [facility] [place] [address] [facility] [id number] [address] [place] [id number] October, Major depressive disorder, r ecurrent, moderate F33.1 [facility] [place] [address] [facility] [id number] [address] [place] [address] October, Major depression F32.9 [facility] [place] [address] [facility] [id number] [address] [place] [address] Sep, [place] or callus L84 and Onych omycosis B35.1 [facility] [place] [address] [facility] [id number] [address] [place] [address] Sep, Major depressive disorder, r ecurrent, moderate F33.1 [facility] [place] [address] [facility] [id number] [address] [place] [address] Sep, Major depression F32.9 [facility] [place] [address] [facility] [id number] [address] [place] [address] Sep, Moderate episode of recurren t major depressive disorder F33.1 [facility] [address] [place] [address] AVE [id number][place] [id number] Sep, Muscle strain T14.8 [facility] [place] [address] [facility] [id number] [address] [place] [address] Aug, Major depression F32.9 [facility] [place] [address] [facility] [id number] [address] [place] [address] Aug, Major depression F32.9 [facility] [place] [address] [facility] [id number] [address] [place] [address] Jul, Morbid obesity E66.01 and Ma cora depression F32.9 [facility] [place] [address] [facility] [id number] [address] [place] [address] Jul, Depression, major, recurrent , moderate F33.[address] [id number][place] [id number] Jul, [facility] [place] [address] [facility] [id number] [address] [place] [phone] Jul, [facility] [place] [address] [facility] [id number] [address] [place] [address] Jul, Major depression F32.9 and M orbid obesity E66.[address] [id number], [place] [id number] Jul, Type II diabetes mellitus E11.9 ; Callus of foot L84 ; Benign essential hypertension I10 and Renal insufficiency N28.9 [facility] [place] [address] [facility] [id number] [address] [place] [phone] 09 Jul, 2015 Depression, major, recurrent , moderate F33.1 [facility] [place] [address] [facility] [id number] [address] [place] [address] Jul, Major depression F32.9 [facility] [place] [address] [place] [id number] [address] [place] [address] Jul, [facility] [place] [address] [facility] [id number] [address] [place] [address] Jun, Major depression F32.9 [facility] [place] [address] [facility] [id number] [address] [place] [id number] Jun, Major depressive disorder, r ecurrent, moderate F33.1 [facility] [place] [address] [facility] [id number] [address] [place] [address] Jun, [place] [address] [facility] [id number] [address] [place] [address] Jun, Major depressive disorder, r ecurrent, moderate F33.1 and Major depression F32.[address] [id number][place] [id number] Jun, Type II diabetes mellitus E11.9 [place] [address] [facility] [id number] [address] [place] [address] Jun, Depression, major, recurrent , moderate F33.1 [place] [address] [facility] [id number] [address] [place] [address] May, Major depressive disorder, r ecurrent, moderate F33.1 [place] [address] [facility] [id number] [address] [place] [address] May, [place] [address] [id number][place] [id number] May, Edema R60.9 [place] [address] [facility] [id number] [address] [place] [address] May, Insomnia G47.00 and Major de pression F32.[address] [place] [id number] [place] [id number] May, Morbid obesity E66.01 ; Edema R60.9 ; Sh ortness of breath R06.02 ; Benign essential hypertension I10 and Renal insufficiency N28.[address] [place] [id number] [place] [id number] May, Hyperlipemia 272.4 and Renal insufficien cy N28.9 [place] [address] [facility] [id number] [address] [place] [id number] Apr, Major depression F32.9 [place] [address] [facility] [id number] [address] [place] [address] Apr, [place] [address] [facility] [id number] [address] [place] [address] Apr, Major depressive disorder, r ecurrent, moderate F33.[address] [place] [address] [id number], [place] [id number] Apr, Type II diabetes mellitus E11.9 ; Benign essential hypertension I10 ; Edema R60.9 and Renal insufficiency N28.9 [place] [address] [facility] [id number] [address] [place] [address] Mar, Major depressive disorder, r ecurrent, moderate F33.1 [facility] [place] [address] [facility] [id number] [address] [place] [address] Mar, [facility] [place] [address] [facility] [id number] [address] [place] [address] Mar, Major depression F32.9 [facility] [id number] [place] [address] [id number] Mar, Morbid obesity E66.01 ; Benign essential hypertension I10 and Type II diabetes mellitus E11.9 [place] [address] [facility] [id number] [address] [place] [id number] Feb, Major depressive disorder, r ecurrent, moderate F33.1 [place] [address] [place] [id number] [address] [place] [address] Feb, Major depressive disorder, r ecurrent episode, in partial or unspecified remission 296.35 ; Anxiety state, unspecified 300.00 and Morbid obesity 278.01 [place] [address] [place] [id number] [address] [place] [address] Feb, [place] [id number] [place] [address] [id number] Feb, Vomiting 787.03 and Viral syndrome 079.9 9 [place] [address] [place] [id number] [address] [place] [address] 15 Feb, 2015 Major depression, recurrent 296.30 ; Generalized anxiety disorder 300.02 and No condition on [place] II V71.09 [facility] [id number] [place] [address] [id number] Feb, Skin tag 701.9 [facility] [place] [address] [facility] [id number] [address] [place] [id number] Feb, [place] [address] [place] [id number] [address] [place] [address] Jan, Depression, major, recurrent , moderate 296.[address] [id number], [place] [id number] Jan, Nausea and vomiting 787.01 ; Rib pain on right side 786.50 and Fall on or from sidewalk curb E880.1 [facility] [place] [address] [facility] [id number] [address] [place] [address] Jan, [facility] [place] [address] [place] [id number] [address] [place] [address] Jan, Major depressive disorder, r ecurrent episode, in partial or unspecified remission 296.35 and Anxiety state, unspecified 300.[address] [id number], [place] [id number] Jan, [facility] [place] [address] [facility] [id number] [address] [place] [address] Jan, Depression, major, recurrent , moderate 296.32 [facility] [place] [address] [facility] [id number] [address] [place] [address] Jan, Major depression, recurrent 296.30 ; No condition on [place] II V71.09 and No condition on axis III V71.[address] [id number], [place] [id number] Jan, Drug-induced nausea and vomiting 787.01 [facility] [place] [address] [facility] [id number] [address] [place] [address] Jan, Depression, major, recurrent , moderate 296.32 [place] [address] [facility] [id number] [address] [place] [address] Dec, Depression, major, recurrent , moderate 296.[address] [id number], [place] [id number] Dec, Morbid obesity 278.01 ; Metabolic syndro me 277.7 ; Hyperlipemia 272.4 ; Benign essential hypertension 401.1 ; Dietary counseling V65.3 ; Exercise counseling V65.41 and Inflamed skin tag 701.9 [place] [address] [address] Dec, Depression, major, recurrent , moderate 296.32 [place] [address] [address] Dec, [place] [address] [address] Dec, Major depression, recurrent 296.30 ; Anxiety, generalized 300.02 and No condition on [place] II V71.09 [place] [address] [address] Dec, Depression, major, recurrent , moderate 296.32 [place] [address] [address] Dec, Major depressive disorder, r ecurrent episode, moderate 296.[address] [address] Dec, Depression, major, recurrent , moderate 296.32 [place] [address] [address] Dec, Depression, major, recurrent , moderate 296.32 [place] [address] [address] Dec, Depression, major, recurrent , moderate 296.32 [place] [address] [address] Dec, Depression, major, recurrent , moderate 296.32 [place] [address] [address] Nov, Depression, major, recurrent , moderate 296.32 [place] [address] [address] Nov, Major depression 296.20 ; So cial phobia 300.23 and No condition on [place] II V71.09 [place] [address] [place] [address] 16 Nov, 2014 Depression, major, recurrent , moderate 296.32 [facility] [place] [address] [facility] [id number] [address] [place] [id number] 09 Nov, 2014 Major depressive disorder, r ecurrent episode, moderate 296.32 and Generalized anxiety disorder 300.02 [facility] [place] [address] [facility] [id number] [address] [place] [address] Nov, Depression, major, recurrent , moderate 296.32 [facility] [place] [address] [facility] [id number] [address] [place] [address] Nov, Depression, major, recurrent , moderate 296.32 [facility] [place] [address] [place] [id number] [place] [address] October, Generalized anxiety disorder 300.02 ; No condition on [place] II V71.09 and Major depressive disorder, recurrent 296.30 [facility] [place] [address] [place] [id number] [address] [place] [address] Sep, [facility] [place] [address] [place] [id number] [address] [place] [address] Sep, [facility] [place] [address] [place] [id number] [address] [place] [address] Aug, [facility] [place] [address] [place] [id number] [address] [place] [address] Aug, [facility] [place] [address] [place] [id number] [address] [place] [address] Aug, [facility] [place] [address] [place] [id number] [address] [place] [address] Aug, [facility] [place] [address] [place] [id number] [address] [place] [address] Aug, [facility] [place] [address] [place] [id number] [address] [place] [address] Aug, [facility] [place] [address] [place] [id number] [address] [place] [id number] 20 Aug, 2014 [facility] [address] [id number] [address] [place] [address], [place] [address] 20 Aug, 2014 [facility] [place] [facility] [address] [id number] [address] [place] [address], [place] [address] 13 Aug, 2014 [facility] [place] [facility] [address] [id number] [address] [place] [address], [place] [address] 13 Aug, 2014 [facility] [place] [facility] [address] [id number] [address] [place] [address], [place] [address] 13 Aug, 2014 [facility] [place] [facility] [address] [id number] [address] [place] [address], [place] [address] Aug, [facility] [place] [facility] [address] [id number] [address] [place] [address], [place] [address] Aug, [facility] [place] [facility] [address] [id number] [address] [place] [address], [place] [address] Aug, [facility] [place] [facility] [address] [id number] [address] [place] [address], [place] [address] 10 Aug, 2014 [facility] [place] [facility] [address] [id number] [address] [place] [address], [place] [address] 10 Aug, 2014 [facility] [place] [facility] [address] [id number] [address] [place] [address], [place] [address] Aug, [facility] [place] [facility] [address] [id number] [address] [place] [address], [place] [address] Aug, [facility] [place] [facility] [address] [id number] [address] [place] [address], [place] [address] 24 Jul, 2014 [facility] [place] [facility] [address] [id number] [address] [place] [address], [place] [address] Jul, [facility] [place] [facility] [address] [id number] [address] [place] [address], [place] [address] 16 Jul, 2014 [facility] [place] [facility] [address] [id number] [address] [place] [address], [place] [address] 16 Jul, 2014 [facility] [place] [facility] [address] [id number] [address] [place] [address], [place] [address] Jul, [facility] [address] [id number] [address] [place] [address], [place] [address] Jul, [facility] [address] [id number] [address] [place] [address], [place] [address] Jun, [facility] [address] [id number] [address] [place] [address], [place] [address] Jun, [facility] [address] [id number] [address] [place] [address], [place] [address] Jun, [facility] [address] [id number] [address] [place] [address], [place] [address] Jun, [facility] [address] [id number] [address] [place] [address], [place] [address] Jun, [facility] [address] [id number] [address] [place] [address], [place] [address] Jun, [facility] [address] [id number] [address] [place] [address], [place] [address] Jun, [facility] [address] [id number] [address] [place] [address], [place] [address] Jun, [facility] [address] [id number] [address] [place] [address], [place] [address] Jun, [facility] [address] [id number] [address] [place] [address], [place] [address] Jun, [facility] [address] [id number] [address] [place] [address], [place] [address] Jun, [facility] [address] [id number] [address] [place] [address], [place] [address] Jun, [facility] [address] [id number] [place] [id number] Jun, [facility] [address] [id number] [address] [place] [address], [place] [address] Jun, [facility] [address] [id number] [address] [place] [address], [place] [address] Jun, [facility] [place] [facility] [address] [id number] [address] [place] [address], [place] [address] Jun, [facility] [address] [id number] [address] [place] [address], [place] [address] May, [facility] [place] [facility] [address] [id number] [address] [place] [address], [place] [address] May, [facility] [address] [id number] [address] [place] [address], [place] [address] May, [facility] [place] [facility] [address] [id number] [address] [place] [address], [place] [address] May, [facility] [place] [facility] [address] [id number] [address] [place] [address], [place] [address] Apr, [facility] [address] [id number] [address] [place] [address], [place] [address] Apr, [facility] [address] [id number] [address] [place] [address], [place] [address] Apr, [facility] [address] [id number] [address] [place] [address], [place] [address] Apr, [facility] [address] [id number] [address] [place] [address], [place] [address] Apr, [facility] [address] [id number] [address] [place] [address], [place] [address] Apr, [facility] [address] [id number] [address] [place] [address], [place] [address] Apr, [facility] [address] [id number] [address] [place] [address], [place] [address] Apr, [facility] [address] [id number] [address] [place] [address], [place] [address] Apr, [facility] [address] [id number] [address] [place] [address], [place] [address] Apr, [facility] [address] [id number] [address] [place] [address], [place] [address] Apr, [facility] [address] [id number] [address] [place] [address], [place] [address] Apr, [facility] [address] [id number] [address] [place] [address], [place] [address] Apr, [facility] [address] [id number] [address] [place] [address], [place] [address] Apr, [facility] [address] [id number] [address] [place] [address], [place] [address] Apr, [facility] [address] [id number] [address] [place] [address], [place] [address] Apr, [facility] [address] [id number] [address] [place] [address], [place] [address] Apr, [facility] [address] [id number] [address] [place] [address], [place] [address] Apr, [facility] [address] [id number] [address] [place] [address], [place] [address] Apr, [facility] [address] [id number] [address] [place] [address], [place] [address] Apr, [facility] [address] [id number] [address] [place] [address], [place] [address] Mar, [facility] [address] [id number] [address] [place] [address], [place] [address] Mar, [facility] [address] [id number] [address] [place] [address], [place] [address] Mar, [facility] [address] [id number] [address] [place] [address], [place] [address] Mar, [facility] [address] [id number] [address] [place] [address], [place] [address] Mar, [facility] [address] [id number] [address] [place] [address], [place] [address] Mar, [facility] [address] [id number] [address] [place] [address], [place] [address] Mar, [facility] [address] [id number] [address] [place] [address], [place] [address] Mar, [facility] [address] [id number] [address] [place] [address], [place] [address] Mar, [facility] [address] [id number] [address] [place] [address], [place] [address] Mar, [facility] [address] [id number] [address] [place] [address], [place] [address] Feb, [facility] [address] [id number] [address] [place] [address], [place] [address] Feb, [facility] [address] [id number] [address] [place] [address], [place] [address] Feb, [facility] [address] [id number] [address] [place] [address], [place] [address] Feb, [facility] [address] [id number] [address] [place] [address], [place] [address] Jan, [facility] [address] [id number] [address] [place] [address], [place] [address] Jan, [facility] [address] [id number] [address] [place] [address], [place] [address] Jan, [facility] [address] [id number] [address] [place] [address], [place] [address] Jan, [facility] [address] [id number] [address] [place] [address], [place] [address] Jan, [facility] [address] [id number] [address] [place] [address], [place] [address] Jan, [facility] [address] [id number] [address] [place] [address], [place] [address] Dec, [facility] [address] [id number] [address] [address] Dec, [facility] [address] [id number] [address] [place] [address], [place] [address] Nov, [facility] [address] [id number] [address] [place] [address], [place] [address] Nov, [facility] [address] [id number] [address] [place] [address], [place] [address] Nov, [facility] [address] [id number] [address] [place] [address], [place] [address] Nov, [facility] [address] [id number] [address] [place] [address], [place] [address] Nov, [facility] [address] [id number] [address] [place] [address], [place] [address] Nov, [facility] [address] [id number] [address] [place] [address], [place] [address] Sep, [facility] [address] [id number] [address] [place] [address], [place] [address] Sep, [facility] [address] [id number] [address] [place] [address], [place] [address] Sep, [facility] [address] [id number] [address] [place] [address], [place] [address] Sep, [facility] [address] [id number] [address] [place] [address], [place] [address] Aug, [facility] [address] [id number] [address] [place] [address], [place] [address] Aug, [facility] [address] [id number] [address] [place] [address], [place] [address] Jul, [facility] [address] [id number] [address] [place] [address], [place] [address] Jul, [facility] [address] [id number] [address] [place] [address], [place] [address] Jun, [facility] [address] [id number] [address] [place] [address], [place] [address] Jun, [facility] [address] [id number] [address] [place] [address], [place] [address] Jun, [facility] [address] [id number] [address] [place] [address], [place] [address] Jun, [facility] [address] [id number] [address] [place] [address], [place] [address] May, [facility] [address] [id number] [address] [place] [address], [place] [address] May, [facility] [address] [id number] [address] [place] [address], [place] [address] May, [facility] [address] [id number] [address] [place] [address], [place] [address] May, [facility] [address] [id number] [address] [place] [address], [place] [address] May, [facility] [address] [id number] [address] [place] [address], [place] [address] May, [facility] [address] [id number] [address] [place] [address], [place] [address] Apr, [facility] [address] [id number] [address] [place] [address], [place] [address] Apr, [facility] [address] [id number] [address] [place] [address], [place] [address] Apr, [facility] [address] [id number] [address] [place] [address], [place] [address] Apr, [facility] [address] [id number] [address] [place] [address], [place] [address] Mar, [facility] [address] [id number] [address] [place] [address], [place] [address] Mar, [facility] [address] [id number] [address] [place] [address], [place] [address] Mar, [facility] [address] [id number] [address] [place] [address], [place] [address] Mar, [facility] [address] [id number] [address] [place] [address], [place] [address] Feb, [facility] [address] [id number] [place] [id number] Jan, [facility] [address] [id number] [address] [place] [address], [place] [address] Jan, [facility] [address] [id number] [address] [place] [address], [place] [address] Dec, [facility] [address] [id number] [address] [place] [address], [place] [address] Dec, [facility] [address] [id number] [address] [place] [address], [place] [address] Dec, [facility] [address] [facility] [address] [id number] [place] [id number] Dec, [facility] [address] [id number] [address] [place] [address], [place] [address] Nov, [facility] [address] [id number] [address] [place] [address], [place] [address] Nov, [facility] [address] [id number] [address] [place] [address] Nov, [facility] [address] [id number] [address] [place] [address], [place] [address] Nov, [facility] [address] [id number] [address] [place] [address], [place] [address] Nov, [facility] [address] [id number] [address] [place] [address], [place] [address] October, [facility] [address] [id number] [address] [place] [address] October, [facility] [place] [address] [facility] [id number] [address] [address] Aug, [facility] [place] [address] [facility] [id number] [address] [place] [address] Nov, IMMUNIZATIONS No Known Immunizations SOCIAL HISTORY Never Assessed REASON FOR VISIT PLAN OF CARE VITAL SIGNS Height 72 in 2014-04-28 Weight 439.6 lbs 2014-04-28 Temperature 96.9 degrees Fahrenheit 2014-04-28 Heart Rate 88 bpm 2014-04-28 Respiratory Rate 18 2014-04-28 Blood pressure systolic 112 mmHg 2014-04-28 Blood pressure diastolic 62 mmHg 2014-04-28 MEDICATIONS Unknown Medications RESULTS No Results PROCEDURES Procedure Date Ordered Result Body Site GLYCATED HEMOGLOBIN TEST Apr 28, 2014 INSTRUCTIONS MEDICATIONS ADMINISTERED No Known Medications MEDICAL (GENERAL) HISTORY Type Description Date Medical History sleep apnea Medical History hypertension Medical History 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 Medical History H yplori- dx 12/2014 ANNMARIE Medical History Echo 05/2015- Stage II diast olic dysfunction, LV hypertrophy, EF 60% Medical History Major Depression- Prozac, We llbutrin, Trintellix, Celexa, Lexapro, Paxil, Effexor, Cymbalta, Abilify Medical History Insomnia Medical History chronic renal insufficiency Medical History Obsessive Compulsive Disorder with Perse veration Surgical History EGD- Esophagus stretching- ANNMARIE 2014 Surgical History gastric sleeve 03/2016 Surgical History RT wrist 03/2019 Surgical History RT wrist plated 04/2019 Hospitalization History gastric sleeve Hospitalization History [facility] Trouble with left shoulder blade 08/2017
--- OUTSIDE RECORDS SUMMARY | 2019-11-29 08:57 | XMS REPORT ---
Author Author Curt Hughes [facility] Organization [facility] Address [address], [place] [id number] Care Team Providers Care Tailer Off Name Role Phone Saul [facility] JASON Unavailable PROBLEMS Type Condition ICD9-CM Code USL94-BP Code Onset Dates Condition S tatus SNOMED Code Problem Edema R60.9 Active 330062070 Problem Morbid obesity E66.01 Active 63681 6002 Problem Metabolic syndrome E88.81 Active 2 72769467 Problem Renal insufficiency N28.9 Active 866219882 Problem Vitamin D deficiency E55.9 Active 58833728 Problem Severe episode of recurrent major depressive disorder, without 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 Active 33431451 Problem DANIELA (generalized anxiety disorder) F41.1 Active 60265774 Problem Mixed obsessional thoughts and acts F42.2 Active 36774685 Problem Chronic fatigue R53.82 Active 8422 9001 Problem Other chronic pain G89.29 Active 8 0515421 Problem Borderline personality disorder F60.3 Active 00770658 Problem Attachment disorder F94.1 Active Problem Sciatica, right side M54.31 Active 989280196842947 Problem Insomnia G47.00 Active 644441815 Problem Anxiety F41.9 Active 96324870 Problem BMI 45.0-49.9, adult Z68.42 Active 625942968 Problem Hyperlipemia E78.5 Active 2428248 4 Problem Benign essential hypertension I10 Active 0272825 Problem Callous ulcer, limited to breakdown of skin L98.49 1 Active Problem Hammer toe of right foot M20.41 Activ e 728346748 Problem Hammer toe of second toe of right foot M20.41 Active 201664395 Problem Falling episodes R29.6 Active 161 342351 ALLERGIES No Information ENCOUNTERS Encounter Location Date Diagnosis [facility] [address] [facility] [id number] [address] [place] [address] Dec, [facility] [address] [id number] [address] [place] [address] 15 Dec, [address] [facility] [address] [id number][place] [id number] 14 Dec, 2019 [facility] [address] [id number] [address] [place] [address] Dec, [facility] [address] [id number] [address] [place] [address] Nov, [facility] [address] [id number] [address] [place] [address] Nov, [facility] [address] [id number] [address] [place] [address] October, [facility] [address] [id number] [address] [place] [address] October, [facility] [address] [id number] [address] [place] [address] October, [facility] [id number] [place] [id number] Sep, [facility] [address] [id number] [address] [place] [address] Sep, [facility] [address] [id number] [place] [id number] Sep, [facility] [address] [id number] [address] [place] [address] 28 Sep, 2019 [facility] [address] [id number] [address] [place] [address] 24 Sep, 2019 [facility] [address] [id number] [address] [place] [address] Sep, [facility] [address] [facility] [id number] [address] [place] [address] Sep, [facility] [address] [id number] [address] [place] [address] Sep, DANIELA (generalized anxiety dis order) F41.1 ; Severe episode of recurrent major depressive disorder, without 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 ; Mixed obsessional thoughts and acts F42.2 and Borderline personality disorder F60.3 [facility] [address] [facility] [id number] [address] Sep, Severe episode of recurrent major depres sive disorder, without 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 [facility] [address] [id number][place] [id number] Sep, [facility] [address] [id number], [place] [id number] Sep, [facility] [address] [id number], [place] [id number] Sep, Benign essential hypertension I10 [facility] [address] [facility] [id number] [address] [place] [address] Sep, [facility] [address] [facility] [id number] [address] [place] [address] Sep, [facility] [address] [facility] [id number] [address] [place] [address] Sep, [facility] [address] [facility] [id number] [address] [place] [address] Sep, DANIELA (generalized anxiety dis order) F41.1 ; Severe episode of recurrent major depressive disorder, without 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 ; Mixed obsessional thoughts and acts F42.2 and Borderline personality disorder F60.3 [facility] [address] [id number], [place] [id number] Aug, [facility] [address] [facility] [id number] [address] [place] [address] Aug, [facility] [address] [id number], [place] [id number] Aug, [facility] [address] [facility] [id number] [address] [place] [address] Aug, [facility] [address] [id number][place] [id number] 17 Aug, 2019 Dizzy R42 ; Weight gain R63.5 ; Benign e ssential hypertension I10 ; Falling episodes R29.6 and History of gastric bypass Z98.84 [facility] [address] [place] [id number] [address] [place] [address] 14 Aug, 2019 [facility] [address] [place] [id number] [address] [place] [address] 13 Aug, 2019 [facility] [address] [place] [id number] [address] [place] [address] 11 Aug, 2019 DANIELA (generalized anxiety dis order) F41.1 ; Severe episode of recurrent major depressive disorder, without 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 ; Mixed obsessional thoughts and acts F42.2 and Borderline personality disorder F60.[id number] [place] [id number] Aug, [place] [id number] [place] [id number] Aug, [place] [address] [place] [id number] [address] [place] [address] Aug, [id number] [place] [id number] Aug, [id number] [place] [address] [id number] Aug, [facility] [address] [facility] [id number] [address] [place] [address] Aug, [id number] [place] [address] [id number] Aug, Severe episode of recurrent major depres sive disorder, without 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 ; Borderline personality disorder F60.3 ; Anxiety F41.9 and Attachment disorder F94.1 [place] [address] [facility] [id number] [address] [place] [address] Jul, [place] [address] [facility] [id number] [address] [place] [phone] 24 Jul, 2019 DANIELA (generalized anxiety dis order) F41.1 ; Severe episode of recurrent major depressive disorder, without 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 ; Mixed obsessional thoughts and acts F42.2 and Borderline personality disorder F60.3 [place] [address] [facility] [id number][place] [id number] Jul, [facility] [address] [facility] [id number] [address] [place] [address] Jul, [facility] [address] [facility] [id number] [address] [place] [address] 14 Jul, 2019 [facility] [address] [facility] [id number] [address] [place] [phone] 12 Jul, 2019 [facility] [address] [facility] [id number] [address] [place] [address] Jul, [facility] [address] [facility] [id number] [address] [place] [address] Jun, DANIELA (generalized anxiety dis order) F41.1 ; Severe episode of recurrent major depressive disorder, without 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 ; Mixed obsessional thoughts and acts F42.2 and Borderline personality disorder F60.[address] [id number][place] [id number] Jun, [place] [address] [facility] [address] [id number], [place] [phone] Jun, [facility] [address] [facility] [id number] [address] [place] [address] Jun, [facility] [address] [facility] [id number] [address] [place] [address] Jun, DANIELA (generalized anxiety dis order) F41.1 ; Severe episode of recurrent major depressive disorder, without 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 ; Mixed obsessional thoughts and acts F42.2 and Borderline personality disorder F60.[address] [id number][place] [id number] Jun, [facility] [address] [id number], [place] [id number] Jun, [facility] [address] [id number], [place] [id number] Jun, [facility] [address] [id number], [place] [id number] Jun, Benign essential hypertension I10 ; Morb id obesity E66.01 ; Severe episode of recurrent major depressive disorder, without 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 ; Excess skin L98.7 and Hyperlipemia E78.5 [place] [address] [place] [id number] [address] [place] [address] Jun, [facility] [address] [place] [id number] [address] [place] [address] May, [place] [address] [place] [id number] [address] [place] [address] May, Severe episode of recurrent major depressive disorder, without 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 ; Mixed obsessional thoughts and acts F42.2 ; DANIELA (generalized anxiety disorder) F41.1 and Borderline personality disorder F60.3 [place] [address] [place] [id number] [address] [place] [phone] May, [facility] [address] [place] [id number] [address] [place] [address] May, DANIELA (generalized anxiety dis order) F41.1 ; Severe episode of recurrent major depressive disorder, without 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 ; Mixed obsessional thoughts and acts F42.2 and Borderline personality disorder F60.3 [facility] [address] [place] [id number] [address] [place] [address] May, [facility] [address] [place] [id number] [address] [place] [address] May, [facility] [address] [place] [id number] [address] [place] [address] May, Severe episode of recurrent major depressive disorder, without 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 ; Mixed obsessional thoughts and acts F42.2 ; Borderline personality disorder F60.3 and DANIELA (generalized anxiety disorder) F41.1 [facility] [address] [id number] [address] [place] [address] [id number] 04 May, 2019 Caries K02.9 [facility] [address] [id number], [place] [id number] May, Benign essential hypertension I10 [facility] [address] [id number], [place] [id number] Apr, [facility] [address] [id number], [place] [id number] Apr, Benign essential hypertension I10 [facility] [address] [place] [id number] [address] [place] [address] Apr, Borderline personality disor romero F60.3 ; DANIELA (generalized anxiety disorder) F41.1 ; Mixed obsessional thoughts and acts F42.2 and Severe episode of recurrent major depressive disorder, without 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 [facility] [address] [id number], [place] [id number] Apr, [facility] [address] [id number], [place] [id number] Apr, Benign essential hypertension I10 [facility] [address] [place] [id number] [address] [place] [address] Apr, Severe episode of recurrent major depressive disorder, without 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 ; DANIELA (generalized anxiety disorder) F41.1 ; Borderline personality disorder F60.3 and Mixed obsessional thoughts and acts F42.2 [facility] [address] [id number] [address] [place] [address] [id number] Apr, Dental examination Z01.20 [facility] [address] [id number] [address] [place] [address] [id number] Apr, Caries K02.9 and Dental exam ination Z01.20 [facility] [address] [facility] [id number] [address] [place] [address] Apr, DANIELA (generalized anxiety dis order) F41.1 ; Severe episode of recurrent major depressive disorder, without 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 ; Mixed obsessional thoughts and acts F42.2 and Borderline personality disorder F60.3 [facility] [address] [facility] [id number] [address] [place] [address] Mar, Severe episode of recurrent major depressive disorder, without 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 ; Mixed obsessional thoughts and acts F42.2 ; Borderline personality disorder F60.3 and DANIELA (generalized anxiety disorder) F41.1 [place] [address] [place] [id number] [address] [place] [address] Mar, Severe episode of recurrent major depressive disorder, without 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 ; Mixed obsessional thoughts and acts F42.2 ; DANIELA (generalized anxiety disorder) F41.1 and Borderline personality disorder F60.3 [facility] [address] [place] [id number] [place] [address] [id number] Mar, Dental examination Z01.20 an d Caries K02.9 [facility] [id number] [place] [address] [id number] Mar, Benign essential hypertension I10 and Fa lling episodes R29.6 [facility] [address] [facility] [id number] [address] [place] [address] Mar, [place] [address] [facility] [id number] [address] [place] [address] Mar, Severe episode of recurrent major depressive disorder, without 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 ; Mixed obsessional thoughts and acts F42.2 ; Borderline personality disorder F60.3 and DANIELA (generalized anxiety disorder) F41.1 [facility] [address] [facility] [id number] [address] [place] [address] Mar, [facility] [address] [facility] [id number] [address] [place] [address] Mar, [facility] [address] [id number] [place] [id number] Mar, [facility] [address] [facility] [id number] [address] [place] [address] Mar, Severe episode of recurrent major depressive disorder, without 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 ; Mixed obsessional thoughts and acts F42.2 ; Borderline personality disorder F60.3 and DANIELA (generalized anxiety disorder) F41.1 [facility] [address] [facility] [id number] [address] [place] [address] Mar, [facility] [address] [id number] [address] [place] [address] [id number] Feb, Dental examination Z01.20 an d Periodontitis K05.30 [facility] [address] [place] [id number] [address] [place] [address] Feb, DANIELA (generalized anxiety dis order) F41.1 ; Severe episode of recurrent major depressive disorder, without psychotic features F33.2 ; Mixed obsessional thoughts and acts F42.2 and Borderline personality disorder F60.3 [facility] [address] [id number], [place] [id number] Feb, Acute pain of right knee M25.561 ; Fall, initial encounter W19.XXXA ; Benign essential hypertension I10 and Edema R60.9 [facility] [address] [facility] [id number] [address] [place] [address] Feb, [facility] [address] [facility] [id number] [address] [place] [address] Feb, DANIELA (generalized anxiety dis order) F41.1 ; Severe episode of recurrent major depressive disorder, without psychotic features F33.2 ; Mixed obsessional thoughts and acts F42.2 and Borderline personality disorder F60.3 [facility] [address] [facility] [id number] [address] [place] [address] Feb, [facility] [address] [facility] [id number] [address] [place] [address] Jan, [facility] [address] [place] [id number] [address] [place] [address] Jan, [facility] [address] [place] [id number] [address] [place] [address] Jan, [facility] [address] [facility] [id number] [place] [address] [id number] Jan, Callus of heel L84 ; Fissure in skin R23 .4 and Hammer toe of second toe of right foot M20.41 [facility] [address] [place] [address] A[id number] [place] [address] [id number] Jan, [facility] [address] [address] Jan, [facility] [address] [address] Jan, [facility] [address] [address] Jan, Severe episode of recurrent major depressive disorder, without psychotic features F33.2 ; DANIELA (generalized anxiety disorder) F41.1 ; Mixed obsessional thoughts and acts F42.2 and Borderline personality disorder F60.3 [facility] [id number] [place] [address] Jan, [facility] [address] [place] [id number] [place] [address] [id number] Jan, Benign essential hypertension I10 [facility] [address] [place] [id number] [place] [address] [id number] Dec, Callous ulcer, limited to breakdown of s kin L98.491 and Morbid obesity E66.01 [facility] [address] [facility] [id number] [address] [place] [address] Dec, [facility] [address] [place] [id number] [address] [place] [address] Dec, [facility] [address] [place] [id number] [address] [place] [address] Dec, [facility] [address] [id number] [address] [place] [address] Dec, [facility] [address] [facility] [id number] [address] [place] [address] Dec, Severe episode of recurrent major depressive disorder, without psychotic features F33.2 [facility] [address] [facility] [id number] [address] [place] [address] Dec, DANIELA (generalized anxiety dis order) F41.1 ; Severe episode of recurrent major depressive disorder, without psychotic features F33.2 ; Mixed obsessional thoughts and acts F42.2 and 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 [facility] [address] [id number], [place] [id number] Dec, Morbid obesity E66.01 [facility] [address] [facility] [id number] [address] [place] [address] Dec, [facility] [address] [facility] [id number] [address] [place] [address] Dec, [facility] JENNY [address] [id number], [place] [address] Nov, [facility] [address] [id number], [place] [id number] Nov, [facility] [address] [facility] [id number] [address] [place] [address] Nov, [facility] [address] [facility] [id number] [address] [place] [address] Nov, [facility] [address] [facility] [id number] [address] [place] [address] Nov, DANIELA (generalized anxiety dis order) F41.1 ; Severe episode of recurrent major depressive disorder, without psychotic features F33.2 ; Mixed obsessional thoughts and acts F42.2 and 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 [facility] [address] [id number], [place] [id number] Nov, Morbid obesity E66.01 [facility] [address] [facility] [id number] [address] [place] [address] Nov, [facility] [address] [facility] [id number] [address] [place] [address] Nov, DANIELA (generalized anxiety dis order) F41.1 ; Mixed obsessional thoughts and acts F42.2 ; Severe episode of recurrent major depressive disorder, without psychotic features F33.2 and 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 [facility] [address] [id number], [place] [id number] October, Morbid obesity E66.01 [facility] [address] [id number], [place] [id number] October, Benign essential hypertension I10 and Mo rbid obesity E66.01 [facility] [address] [id number], [place] [id number] October, [facility] [address] [facility] [id number] [address] [place] [address] October, Severe episode of recurrent major depressive disorder, without psychotic features F33.2 [facility] [address] [id number], [place] [id number] October, Morbid obesity E66.01 [facility] [address] [id number], [place] [id number] October, [facility] [address] [facility] [id number] [address] [place] [address] October, Severe episode of recurrent major depressive disorder, without psychotic features F33.2 ; DANIELA (generalized anxiety disorder) F41.1 ; Mixed obsessional thoughts and acts F42.2 and 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 [facility] [address] [id number], [place] [id number] October, Morbid obesity E66.01 [facility] [address] [id number] [address] [place] [id number] Sep, Dental examination Z01.20 [facility] [address] [id number] [id number] Sep, [facility] [address] [facility] [id number] [address] [place] [id number] Sep, Sore in mouth K13.79 and Mor bid obesity E66.01 [facility] [address] [facility] [id number] [address] [place] [id number] Sep, Dental examination Z01.20 [facility] [address] [facility] [id number] [address] [place] [id number] Sep, Anxiety disorder, unspecifie d F41.[id number] [place] [id number] Sep, Mouth ulcer K12.[id number] [place] [address] [id number] Sep, Morbid obesity E66.[address] [id number] [place] [address] [id number] Sep, Allergic rhinitis, unspecified seasonali ty, unspecified trigger J30.9 and Shortness of breath R06.[address] [id number] [place] [address] [id number] Sep, 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 [id number] [place] [address] [id number] Aug, Mouth abscess K12.2 ; Mouth ulcer K12.1 ; Bloating R14.0 and Morbid obesity E66.01 [facility] [id number], [place] [id number] Aug, [facility] [id number] [place] [address] [id number] Aug, [facility] [id number], [place] [id number] Jul, Major depressive disorder, recurrent, mo derate F33.1 ; Abscess of arm, left L02.414 ; BMI 45.0-49.9, adult Z68.42 and Morbid obesity E66.01 [facility] [address] [id number], [place] [id number] Jul, [facility] [address] [id number], [place] [id number] Jul, [facility] [address] [id number], [place] [id number] Jun, Pain in right knee M25.561 and Other chr onic pain G89.29 [facility] [address] [id number], [place] [id number] Jun, Benign essential hypertension I10 ; BMI 45.0-49.9, adult Z68.42 ; Morbid obesity E66.01 ; Vitamin D deficiency E55.9 ; Insomnia G47.00 ; 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 ; Edema R60.9 ; Recurrent major depressive disorder, in partial remission F33.41 ; Chronic fatigue R53.82 ; Acute pain of right knee M25.561 ; Metabolic syndrome E88.81 and Irritable mood R45.4 [place] [address] [place] [id number] [address] [place] [address] Jun, [facility] Jama [facility] [address] [id number], [place] [id number] Jun, Irritable mood R45.4 [facility] [address] [facility] [id number] [address] [place] [address] May, [facility] [address] [facility] [id number] [address] [place] [phone] May, [facility] [address] [facility] [id number] [address] [place] [phone] May, Recurrent major depressive d isorder, in partial remission F33.41 ; Mixed obsessional thoughts and acts F42.2 ; 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 and BMI 45.0-49.9, adult Z68.42 [facility] [address] [facility] [id number] [address] [place] [address] Apr, [facility] [address] [facility] [id number] [address] [place] [address] Apr, [facility] [address] [facility] [id number] [address] [place] [address] Apr, [facility] [address] [facility] [id number] [address] [place] [address] Apr, [facility] [address] [place] [id number] [address] [place] [address] Mar, Mixed obsessional thoughts a nd acts F42.2 ; Recurrent major depressive disorder, in partial remission F33.41 ; DANIELA (generalized anxiety disorder) F41.1 and BMI 45.0-49.9, adult Z68.[address] [place] [address] [id number] [place] [address] [id number] Mar, [address] [id number] [place] [address] [id number] Mar, BMI 45.0-49.9, adult Z68.42 ; Instabilit y of right knee joint M25.361 and Rash R21 [place] [address] [place] [id number] [address] [place] [address] Jan, Recurrent major depressive d isorder, in partial remission F33.41 ; Mixed obsessional thoughts and acts F42.2 and BMI 45.0-49.9, adult Z68.[address] [place] [id number] [place] [address] [id number] Jan, [place] [id number] [place] [address] [id number] Jan, Benign essential hypertension I10 ; BMI 45.0-49.9, adult Z68.42 ; Metabolic syndrome E88.81 and Allergic rhinitis, unspecified seasonality, unspecified trigger J30.9 [facility] [address] [facility] [id number] [address] [place] [phone] Dec, DANIELA (generalized anxiety dis order) F41.1 and Depressive disorder, not elsewhere classified F32.[address] [id number] [place] [phone] Dec, Recurrent major depressive disorder, in partial remission F33.[address] [id number] [place] [id number] Dec, [facility] [address] [id number] [place] [id number] Nov, [facility] [address] [id number] [place] [id number] Nov, Recurrent major depressive disorder, in partial remission F33.41 [facility] [address] [place] [id number] [address] [place] [address] Nov, Recurrent major depressive d isorder, in partial remission F33.41 ; Mixed obsessional thoughts and acts F42.2 ; DANIELA (generalized anxiety disorder) F41.1 and BMI 45.0-49.9, adult Z68.42 [facility] [address] [id number] [place] [id number] Nov, [facility] [address] [id number] [place] [employer] [place] [id number] Nov, Other conjunctivitis of both eyes H10.89 and Sciatica, right side M54.31 [facility] [address] [id number], [place] [id number] Nov, [facility] [address] [id number] [place] [id number] Nov, [facility] [address] [id number], [place] [id number] October, [facility] [address] [id number] [place] [id number] October, [facility] [address] [facility] [id number] [address] [place] [address] October, BMI 45.0-49.9, adult Z68.42 ; Mixed obsessional thoughts and acts F42.2 ; Recurrent major depressive disorder, in partial remission F33.41 and DANIELA (generalized anxiety disorder) F41.1 [facility] [id number], [place] [id number] October, Benign essential hypertension I10 ; Morb id obesity E66.01 and BMI 45.0-49.9, adult Z68.42 [facility] [id number] [place] [address] [id number] Sep, [facility] [id number] [place] [address] [id number] Sep, [facility] [id number] [place] [address] [id number] Sep, [facility] [id number] [place] [address] [phone] Sep, Hospital discharge follow-up Z09 ; Aller gic rhinitis, unspecified seasonality, unspecified trigger J30.9 and Shortness of breath R06.02 [facility] [employer] [place] [address] AVE [id number], [place] [id number] Sep, Recurrent major depressive disorder, in partial remission F33.41 [facility] [id number] [place] [address] [id number] Aug, Irritable mood R45.4 [place] [address] [place] [id number] [address] [place] [address] Aug, [facility] [id number] [place] [address] [id number] Jul, Benign essential hypertension I10 ; Robert a R60.9 and Impacted cerumen of left ear H61.22 [place] [address] [phone] Jul, Major depression F32.9 ; Rec urrent major depressive disorder, in partial remission F33.41 and Anxiety F41.9 [place] [address] [address] Jun, Major depression F32.9 ; Rec urrent major depressive disorder, in partial remission F33.41 and Anxiety F41.9 [facility] [address] [id number], [place] [id number] Jun, Major depression F32.9 ; Morbid obesity E66.01 ; Irritable mood R45.4 ; Hand weakness R29.898 and Vitamin D deficiency E55.9 [facility] [address] [id number], [place] [id number] Jun, [facility] [address] [id number], [place] [id number] May, Major depression F32.9 [place] [address] [facility] [id number] [address] [place] [address] May, Major depression F32.[address] [place] [id number] [place] [address] [id number] May, BMI 50.0-59.9, adult Z68.43 ; Major depr ession F32.9 ; Anxiety F41.9 ; Hypertrophic toenail L60.2 and Pain of left great toe M79.[address] [id number] [place] [address] [id number] May, Recurrent major depressive disorder, in partial remission F33.41 [place] [address] [facility] [id number] [address] [place] [address] Apr, [facility] [id number] [place] [address] [id number] Apr, [facility] [address] [facility] [id number] [address] [place] [address] Apr, Major depression F32.9 [facility] [id number] [place] [address] [id number] Apr, Severe episode of recurrent major depres sive disorder, without psychotic features F33.2 ; Anxiety F41.9 and Insomnia G47.[address] [facility] [address] [id number], [place] [id number] Apr, [facility] [address] [facility] [id number] [address] [place] [address] Apr, [facility] [address] [id number], [place] [id number] Apr, [facility] [address] [id number], [place] [id number] Mar, [facility] [address] [id number], [place] [id number] Mar, Allergic conjunctivitis of both eyes H10 .13 [facility] [address] [facility] [id number] [address] [place] [address] Mar, Major depression F32.9 [facility] [address] [id number], [place] [id number] Mar, Metabolic syndrome E88.81 ; History of g astric bypass Z98.890 ; Benign essential hypertension I10 ; Allergic conjunctivitis of both eyes H10.13 and Morbid obesity E66.01 [facility] [address] [facility] [id number] [address] [place] [address] Mar, Major depression F32.9 [facility] [address] [id number], [place] [id number] Feb, [facility] [address] [facility] [id number] [address] [place] [address] Feb, Major depression F32.9 [facility] [address] [id number], [place] [id number] Feb, Subacute maxillary sinusitis J01.00 and Bronchitis J40 [facility] [address] [facility] [id number] [address] [place] [id number] 06 Feb, 2017 Major depressive disorder, r ecurrent, moderate F33.1 [facility] [address] [id number], [place] [id number] Jan, [facility] [address] [address] [id number], [place] [id number] Jan, Acute non-recurrent maxillary sinusitis J01.00 and Skin tag L91.8 [facility] [address] [id number], [place] [id number] Jan, Cough R05 and Sinus congestion R09.81 [facility] [place] [address] [place] [address] AVE [id number], [place] [id number] Jan, [facility] [address] [id number], [place] [id number] Jan, Benign essential hypertension I10 ; Hist ory of gastric bypass Z98.890 and Nausea and vomiting in adult R11.2 [place] [address] [place] [id number] [address] [place] [phone] 04 Jan, 2017 Major depressive disorder, r ecurrent, moderate F33.1 [place] [address] [place] [id number] [address] [place] [address] 12 Dec, 2016 Insomnia G47.00 ; Recurrent major depressive disorder, in partial remission F33.41 and Morbid obesity E66.01 [facility] [place] [address] [place] [address] AVE [id number], [place] [id number] Dec, [facility] [address] [id number], [place] [id number] Dec, Chronic bacterial conjunctivitis of left eye H10.402 [facility] [address] [place] [address] AVE [id number], [place] [id number] Nov, [facility] [id number] [place] [address] [id number] Nov, Dental examination Z01.20 [facility] [address] [id number] [place] [address] [id number] Nov, Benign essential hypertension I10 ; Hist ory of gastric bypass Z98.890 and Nausea and vomiting in adult R11.2 [place] [address] [place] [id number] [address] [place] [address] Nov, Major depressive disorder, r ecurrent, moderate F33.1 ; Generalized anxiety disorder F41.1 and Insomnia due to other mental disorder F51.05 [place] [address] [facility] [id number] [address] [place] [address] Nov, Recurrent major depressive d isorder, in partial remission F33.41 ; Insomnia G47.00 and Morbid obesity E66.01 [facility] [address] [id number] [place] [id number] October, Abscess of left arm L02.414 [place] [address] [facility] [id number] [address] [place] [address] October, Morbid obesity E66.01 ; Lida r depression F32.9 and Recurrent major depressive disorder, in partial remission F33.41 [facility] [address] [id number], [place] [id number] Sep, Benign essential hypertension I10 ; Morb id obesity E66.01 ; S/P gastric bypass Z98.84 ; Abscess L02.91 and Chronic bacterial conjunctivitis of left eye H10.402 [facility] [id number] [place] [address] [id number] Sep, Dental examination Z01.20 [place] [address] [facility] [id number] [address] [place] [address] Sep, Morbid obesity E66.01 ; Lida r depression F32.9 and Recurrent major depressive disorder, in partial remission F33.41 [place] [address] [facility] [id number] [address] [place] [phone] Jul, [place] [address] [facility] [id number] [address] [place] [address] Jul, Major depressive disorder, r ecurrent, moderate F33.1 [place] [address] [facility] [id number] [address] [place] [address] Jul, Major depressive disorder, r ecurrent, moderate F33.1 and Generalized anxiety disorder F41.1 [facility] [address] [id number], [place] [id number] Jul, Cough R05 [facility] [address] [facility] [id number] [address] [place] [address] Jul, Morbid obesity E66.01 ; Lida r depression F32.9 and Recurrent major depressive disorder, in partial remission F33.41 [facility] [address] [id number], [place] [id number] Jul, [facility] [address] [id number], [place] [id number] Jul, [facility] [place] [address] [id number] [place] [address] [id number] Jul, Gastroenteritis K52.9 and Cough R05 [address] [id number] [place] [address] [id number] Jun, Acute bacterial conjunctivitis of left e ye H10.32 [facility] [address] [facility] [id number] [address] [place] [address] Jun, [place] [address] [address] Jun, Recurrent major depressive d isorder, in partial remission F33.41 [facility] [address] [place] [id number] [address] [place] [address] May, Major depression F32.9 and M orbid obesity E66.01 [facility] [address] [facility] [id number] [address] [place] [phone] May, [facility] [address] [facility] [address] [id number] [place] [address] [id number] May, Thrush B37.0 [facility] [address] [place] [id number] [address] [place] [address] Apr, Major depressive disorder, r ecurrent, moderate F33.1 [place] [address] [place] [id number] [address] [place] [address] Apr, Insomnia G47.00 ; Major depr ession F32.9 and Recurrent major depressive disorder, in partial remission F33.41 [facility] [address] [facility] [id number] [address] [place] [address] Apr, [facility] [address] [facility] [id number] [address] [place] [address] Apr, Major depression F32.9 and R ecurrent major depressive disorder, in partial remission F33.41 [facility] [address] [id number], [place] [id number] Mar, Benign essential hypertension I10 ; Morb id obesity E66.01 ; Impacted cerumen of both ears H61.23 ; Laceration of finger of right hand, initial encounter S61.219A and Encounter for immunization Z23 [facility] [address] [facility] [id number] [address] [place] [address] 17 Mar, 2016 [facility] [address] [facility] [id number] [address] [place] [address] Mar, [place] [address] [facility] [id number] [address] [place] [address] Mar, [place] [address] [id number], [place] [id number] Feb, Nausea R11.0 ; Blood in the stool K92.1 and Benign essential hypertension I10 [place] [address] [facility] [id number] [address] [place] [address] Feb, Major depression F32.9 and R ecurrent major depressive disorder, in partial remission F33.41 [facility] [address] [id number], [place] [id number] Feb, [facility] [address] [id number], [place] [id number] Feb, Recurrent major depressive disorder, in partial remission F33.41 [facility] [address] [id number], [place] [id number] Jan, [facility] [address] [id number], [place] [id number] Jan, Benign essential hypertension I10 ; Robert a R60.9 and Hyperlipidemia, unspecified hyperlipidemia type E78.5 [facility] [address] [id number], [place] [id number] Jan, Recurrent major depressive disorder, in partial remission F33.41 [facility] [place] [address] [id number] [place] [id number] Jan, [facility] [address] [id number], [place] [id number] Jan, [facility] [address] [id number], [place] [id number] Jan, [facility] [address] [facility] [id number] [address] [place] [address] Jan, [facility] [address] [facility] [id number] [address] [place] [address] Dec, [facility] [address] [facility] [id number] [address] [place] [address] Nov, [facility] [address] [facility] [id number] [address] [place] [address] Nov, Major depression F32.9 [facility] [address] [facility] [id number] [address] [place] [address] Nov, [facility] [address] [facility] [id number] [address] [place] [phone] Nov, [facility] [address] [facility] [id number] [address] [place] [address] Nov, Major depressive disorder, r ecurrent episode, mild F33.0 and Anxiety F41.9 [facility] [address] [id number], [place] [id number] Nov, [facility] [address] [id number], [place] [id number] October, Left elbow pain M25.522 and Other season al allergic rhinitis J30.2 [facility] [address] [id number], [place] [id number] October, [facility] [address] [facility] [id number] [address] [place] [phone] October, Major depressive disorder, r ecurrent, moderate F33.1 [facility] [address] [facility] [id number] [address] [place] [address] October, Major depression F32.9 [facility] [address] [facility] [id number] [address] [place] [address] Sep, [place] or callus L84 and Onych omycosis B35.1 [facility] [address] [facility] [id number] [address] [place] [address] Sep, Major depressive disorder, r ecurrent, moderate F33.1 [facility] [address] [facility] [id number] [address] [place] [address] Sep, Major depression F32.9 [facility] [address] [facility] [id number] [address] [place] [address] Sep, Moderate episode of recurren t major depressive disorder F33.1 [facility] [address] [place] [address] AVE [id number] [id number] Sep, Muscle strain T14.8 [facility] [address] [facility] [id number] [address] [place] [id number] Aug, Major depression F32.9 [facility] [address] [facility] [id number] [address] [place] [phone] Aug, Major depression F32.9 [facility] [address] [facility] [id number] [address] [place] [id number] Jul, Morbid obesity E66.01 and Ma cora depression F32.9 [facility] [address] [facility] [id number] [address] [place] [phone] Jul, Depression, major, recurrent , moderate F33.[address] [id number] [id number] Jul, [facility] [address] [facility] [id number] [address] [place] [phone] Jul, [facility] [address] [facility] [id number] [address] [place] [phone] Jul, Major depression F32.9 and M orbid obesity E66.[address] [id number] [place] [id number] Jul, Type II diabetes mellitus E11.9 ; Callus of foot L84 ; Benign essential hypertension I10 and Renal insufficiency N28.9 [facility] [address] [place] [id number] [address] [place] [id number] 09 Jul, 2015 Depression, major, recurrent , moderate F33.1 [place] [address] [place] [id number] [address] [place] [phone] 05 Jul, 2015 Major depression F32.9 [facility] [address] [place] [id number] [place], [place] [id number] Jul, [facility] [address] [place] [id number] [address] [place] [phone] Jun, Major depression F32.9 [facility] [address] [place] [id number] [address] [place] [id number] Jun, Major depressive disorder, r ecurrent, moderate F33.1 [facility] [address] [facility] [id number] [address] [place] [address] Jun, [place] [address] [place] [id number] [address] [place] [address] Jun, Major depressive disorder, r ecurrent, moderate F33.1 and Major depression F32.[address] [id number] [id number] Jun, Type II diabetes mellitus E11.9 [facility] [address] [facility] [id number] [address] [place] [address] Jun, Depression, major, recurrent , moderate F33.1 [place] [address] [facility] [id number] [address] [place] [address] May, Major depressive disorder, r ecurrent, moderate F33.1 [place] [address] [facility] [id number] [address] [place] [address] May, [place] [id number] [place] [address] [id number] May, Edema R60.9 [place] [address] [facility] [id number] [address] [place] [address] May, Insomnia G47.00 and Major de pression F32.[address] [place] [id number] [place] [address] [id number] May, Morbid obesity E66.01 ; Edema R60.9 ; Sh ortness of breath R06.02 ; Benign essential hypertension I10 and Renal insufficiency N28.[address] [id number] [place] [address] [id number] May, Hyperlipemia 272.4 and Renal insufficien cy N28.9 [place] [address] [facility] [id number] [address] [place] [address] Apr, Major depression F32.9 [place] [address] [facility] [id number] [address] [place] [address] Apr, [place] [address] [facility] [id number] [address] [place] [address] Apr, Major depressive disorder, r ecurrent, moderate F33.[address] [place] [address] [id number] [id number] Apr, Type II diabetes mellitus E11.9 ; Benign essential hypertension I10 ; Edema R60.9 and Renal insufficiency N28.9 [place] [address] [facility] [id number] [address] [place] [address] Mar, Major depressive disorder, r ecurrent, moderate F33.1 [place] [address] [facility] [id number] [address] [place] [address] Mar, [facility] [address] [facility] [id number] [address] [place] [address] Mar, Major depression F32.9 [facility] [id number] [place] [address] [id number] Mar, Morbid obesity E66.01 ; Benign essential hypertension I10 and Type II diabetes mellitus E11.9 [place] [address] [facility] [id number] [address] [place] [address] Feb, Major depressive disorder, r ecurrent, moderate F33.1 [place] [address] [place] [id number] [address] [place] [address] Feb, Major depressive disorder, r ecurrent episode, in partial or unspecified remission 296.35 ; Anxiety state, unspecified 300.00 and Morbid obesity 278.01 [place] [id number] [place] [address] Feb, [facility] [id number] [place] [address] [id number] 16 Feb, 2015 Vomiting 787.03 and Viral syndrome 079.9 9 [place] [address] [place] [id number] [address] [place] [address] 15 Feb, 2015 Major depression, recurrent 296.30 ; Generalized anxiety disorder 300.02 and No condition on [place] II V71.09 [facility] [id number] [place] [address] [id number] 03 Feb, 2015 Skin tag 701.9 [place] [address] [facility] [id number] [address] [place] [address] Feb, [place] [address] [place] [id number] [address] [place] [address] Jan, Depression, major, recurrent , moderate 296.[address] [id number][place] [id number] Jan, Nausea and vomiting 787.01 ; Rib pain on right side 786.50 and Fall on or from sidewalk curb E880.1 [facility] [address] [facility] [id number] [address] [place] [address] Jan, [facility] [address] [place] [id number] [address] [place] [address] Jan, Major depressive disorder, r ecurrent episode, in partial or unspecified remission 296.35 and Anxiety state, unspecified 300.00 [facility] [address] [place] [address] [id number][place] [id number] Jan, [facility] [address] [facility] [id number] [address] [place] [address] Jan, Depression, major, recurrent , moderate 296.32 [facility] [address] [facility] [id number] [address] [place] [address] Jan, Major depression, recurrent 296.30 ; No condition on [place] II V71.09 and No condition on axis III V71.[address] [id number][place] [id number] Jan, Drug-induced nausea and vomiting 787.01 [facility] [address] [facility] [id number] [address] [place] [address] Jan, Depression, major, recurrent , moderate 296.32 [facility] [address] [facility] [id number] [address] [place] [address] Dec, Depression, major, recurrent , moderate 296.[address] [id number], [place] [id number] Dec, Morbid obesity 278.01 ; Metabolic syndro me 277.7 ; Hyperlipemia 272.4 ; Benign essential hypertension 401.1 ; Dietary counseling V65.3 ; Exercise counseling V65.41 and Inflamed skin tag 701.9 [facility] [address] [address] Dec, Depression, major, recurrent , moderate 296.32 [place] [address] [address] Dec, [place] [address] [address] Dec, Major depression, recurrent 296.30 ; Anxiety, generalized 300.02 and No condition on [place] II V71.09 [place] [address] [address] Dec, Depression, major, recurrent , moderate 296.32 [place] [address] [address] Dec, Major depressive disorder, r ecurrent episode, moderate 296.[address] [address] Dec, Depression, major, recurrent , moderate 296.32 [place] [address] [address] Dec, Depression, major, recurrent , moderate 296.32 [place] [address] [address] Dec, Depression, major, recurrent , moderate 296.32 [place] [address] [address] Dec, Depression, major, recurrent , moderate 296.32 [place] [address] [address] Nov, Depression, major, recurrent , moderate 296.32 [place] [address] [address] Nov, Major depression 296.20 ; So cial phobia 300.23 and No condition on [place] II V71.09 [place] [address] [place] [id number] [address] [place] [address] 16 Nov, 2014 Depression, major, recurrent , moderate 296.32 [facility] [address] [facility] [id number] [address] [place] [phone] 09 Nov, 2014 Major depressive disorder, r ecurrent episode, moderate 296.32 and Generalized anxiety disorder 300.02 [facility] [address] [facility] [id number] [address] [place] [address] Nov, Depression, major, recurrent , moderate 296.32 [facility] [address] [facility] [id number] [address] [place] [address] Nov, Depression, major, recurrent , moderate 296.32 [facility] [address] [place] [id number] [address] [place] [address] October, Generalized anxiety disorder 300.02 ; No condition on [place] II V71.09 and Major depressive disorder, recurrent 296.30 [facility] [address] [facility] [id number] [address] [place] [address] 14 Sep, 2014 [facility] [address] [facility] [id number] [address] [place] [address] Sep, [facility] [address] [place] [id number] [address] [place] [address] Aug, [facility] [address] [place] [id number] [address] [place] [address] Aug, [facility] [address] [facility] [id number] [address] [place] [address] Aug, [facility] [address] [facility] [id number] [address] [place] [address] Aug, [facility] [address] [facility] [id number] [address] [place] [address] Aug, [facility] [address] [facility] [id number] [address] [place] [address] Aug, [facility] [address] [facility] [id number] [address] [place] [address] 20 Aug, 2014 [facility] [address] [id number] [address] [place] [address], [place] [address] 20 Aug, 2014 [facility] [address] [id number] [address] [place] [address], [place] [address] 13 Aug, 2014 [facility] [address] [id number] [address] [place] [address], [place] [address] 13 Aug, 2014 [facility] [address] [id number] [address] [place] [address], [place] [address] 13 Aug, 2014 [facility] [address] [id number] [address] [place] [address], [place] [address] Aug, [facility] [address] [id number] [address] [place] [address], [place] [address] Aug, [facility] [address] [id number] [address] [place] [address], [place] [address] Aug, [facility] [address] [id number] [address] [place] [address], [place] [address] 10 Aug, 2014 [facility] [address] [id number] [address] [place] [address], [place] [address] 10 Aug, 2014 [facility] [address] [id number] [address] [place] [address], [place] [address] Aug, [facility] [address] [id number] [address] [place] [address], [place] [address] Aug, [facility] [address] [id number] [address] [place] [address], [place] [address] 24 Jul, 2014 [facility] [address] [id number] [address] [place] [address], [place] [address] Jul, [facility] [address] [id number] [address] [place] [address], [place] [address] 16 Jul, 2014 [facility] [address] [id number] [address] [place] [address], [place] [address] 16 Jul2014 [facility] [address] [id number] [address] [place] [address], [place] [address] Jul, [facility] [address] [id number] [address] [place] [address], [place] [address] Jul, [facility] [address] [id number] [address] [place] [address], [place] [address] Jun, [facility] [address] [id number] [address] [place] [address], [place] [address] Jun, [facility] [address] [id number] [address] [place] [address], [place] [address] Jun, [facility] [address] [id number] [address] [place] [address], [place] [address] Jun, [facility] [address] [id number] [address] [place] [address], [place] [address] Jun, [facility] [address] [id number] [address] [place] [address], [place] [address] Jun, [facility] [address] [id number] [address] [place] [address], [place] [address] Jun, [facility] [address] [id number] [address] [place] [address], [place] [address] Jun, [facility] [address] [id number] [address] [place] [address], [place] [address] Jun, [facility] [address] [id number] [address] [place] [address], [place] [address] Jun, [facility] [address] [id number] [address] [place] [address], [place] [address] Jun, [facility] [address] [id number] [address] [place] [address], [place] [address] Jun, [facility] [address] [id number] [place] [id number] Jun, [facility] [address] [id number] [address] [place] [address] [address] Jun, [facility] [address] [id number] [address] [place] [address], [place] [address] Jun, [facility] [address] [id number] [address] [place] [address], [place] [address] Jun, [facility] [address] [id number] [address] [place] [address], [place] [address] May, [facility] [address] [id number] [address] [place] [address], [place] [address] May, [facility] [address] [id number] [address] [place] [address], [place] [address] May, [facility] [address] [id number] [address] [place] [address], [place] [address] May, [facility] [address] [id number] [address] [place] [address], [place] [address] Apr, [facility] [address] [id number] [address] [place] [address], [place] [address] Apr, [facility] [address] [id number] [address] [place] [address], [place] [address] Apr, [facility] [address] [id number] [address] [place] [address], [place] [address] Apr, [facility] [address] [id number] [address] [place] [address] Apr, [facility] [address] [id number] [address] [place] [address] Apr, [facility] [address] [id number] [address] [place] [address], [place] [address] Apr, [facility] [address] [id number] [address] [place] [address], [place] [address] Apr, [facility] [address] [id number] [address] [place] [address], [place] [address] Apr, [facility] [address] [id number] [address] [place] [address], [place] [address] Apr, [facility] [address] [id number] [address] [place] [address], [place] [address] Apr, [facility] [address] [id number] [address] [place] [address], [place] [address] Apr, [facility] [address] [id number] [address] [place] [address], [place] [address] Apr, [facility] [address] [id number] [address] [place] [address], [place] [address] Apr, [facility] [address] [id number] [address] [place] [address], [place] [address] Apr, [facility] [address] [id number] [address] [place] [address], [place] [address] Apr, [facility] [address] [id number] [address] [place] [address], [place] [address] Apr, [facility] [address] [id number] [address] [place] [address], [place] [address] Apr, [facility] [address] [id number] [address] [place] [address], [place] [address] Apr, [facility] [address] [id number] [address] [place] [address], [place] [address] Apr, [facility] [address] [id number] [address] [place] [address], [place] [address] Mar, [facility] [address] [id number] [address] [place] [address], [place] [address] Mar, [facility] [address] [id number] [address] [place] [address], [place] [address] Mar, [facility] [address] [id number] [address] [place] [address], [place] [address] Mar, [facility] [address] [id number] [address] [place] [address], [place] [address] Mar, [facility] [address] [id number] [address] [place] [address], [place] [address] Mar, [facility] [address] [id number] [address] [place] [address], [place] [address] Mar, [facility] [address] [id number] [address] [place] [address], [place] [address] Mar, [facility] [address] [id number] [address] [place] [address], [place] [address] Mar, [facility] [address] [id number] [address] [place] [address], [place] [address] Mar, [facility] [address] [id number] [address] [place] [address], [place] [address] Feb, [facility] [address] [id number] [address] [place] [address], [place] [address] Feb, [facility] [address] [id number] [address] [place] [address], [place] [address] Feb, [facility] [address] [id number] [address] [place] [address], [place] [address] Feb, [facility] [address] [id number] [address] [place] [address], [place] [address] Jan, [facility] [address] [id number] [address] [place] [address], [place] [address] Jan, [facility] [address] [id number] [address] [place] [address], [place] [address] Jan, [facility] [address] [id number] [address] [place] [address], [place] [address] Jan, [facility] [address] [id number] [address] [place] [address], [place] [address] Jan, [facility] [address] [id number] [address] [place] [address], [place] [address] Jan, [facility] [address] [id number] [address] [place] [address], [place] [address] Dec, [facility] [address] [id number] [facility] [place] [address] Dec, [facility] [address] [id number] [address] [place] [address], [place] [address] Nov, [facility] [address] [id number] [address] [place] [address], [place] [address] Nov, [facility] [address] [id number] [address] [place] [address], [place] [address] Nov, [facility] [address] [id number] [address] [place] [address], [place] [address] Nov, [facility] [address] [id number] [address] [place] [address], [place] [address] Nov, [facility] [address] [id number] [address] [place] [address], [place] [address] Nov, [facility] [address] [id number] [address] [place] [address], [place] [address] Sep, [facility] [address] [id number] [address] [place] [address], [place] [address] Sep, [facility] [address] [id number] [address] [place] [address], [place] [address] Sep, [facility] [address] [id number] [address] [place] [address], [place] [address] Sep, [facility] [address] [id number] [address] [place] [address], [place] [address] Aug, [facility] [address] [id number] [address] [place] [address], [place] [address] Aug, [facility] [address] [id number] [address] [place] [address], [place] [address] Jul, [facility] [address] [id number] [address] [place] [address], [place] [address] Jul, [facility] [address] [id number] [address] [place] [address], [place] [address] Jun, [facility] [address] [id number] [address] [place] [address], [place] [address] Jun, [facility] [address] [id number] [address] [place] [address], [place] [address] Jun, [facility] [address] [id number] [address] [place] [address], [place] [address] Jun, [facility] [address] [id number] [address] [place] [address], [place] [address] May, [facility] [address] [id number] [address] [place] [address], [place] [address] May, [facility] [address] [id number] [address] [place] [address], [place] [address] May, [facility] [address] [id number] [address] [place] [address], [place] [address] May, [facility] [address] [id number] [address] [place] [address], [place] [address] May, [facility] [address] [id number] [address] [place] [address], [place] [address] May, [facility] [address] [id number] [address] [place] [address], [place] [address] Apr, [facility] [address] [id number] [address] [place] [address], [place] [id number] Apr, [facility] [address] [id number] [address] [place] [address], [place] [id number] Apr, [facility] [address] [id number] [address] [place] [address], [place] [id number] Apr, [facility] [address] [id number] [address] [place] [address], [place] [id number] Mar, [facility] [address] [id number] [address] [place] [address], [place] [id number] Mar, [facility] [address] [id number] [address] [place] [address], [place] [id number] Mar, [facility] [address] [id number] [address] [place] [address], [place] [id number] Mar, [facility] [address] [id number] [address] [place] [address], [place] [id number] Feb, [facility] [address] [id number] [place] [id number] Jan, [facility] [address] [id number] [address] [place] [address], [place] [id number] Jan, [facility] [address] [id number] [address] [place] [address], [place] [id number] Dec, [facility] [address] [id number] [address] [place] [address], [place] [id number] Dec, [facility] [address] [id number] [address] [place] [address], [place] [id number] Dec, [facility] [address] [id number] [place] [id number] Dec, [facility] [address] [id number] [address] [place] [address], [place] [id number] Nov, [facility] [address] [id number] [address] [place] [address], [place] [id number] Nov, [facility] [address] [id number] [address] [place] [id number] Nov, [facility] [address] [id number] [address] [place] [address], [place] [id number] Nov, [facility] [address] [id number] [address] [place] [address], [place] [id number] Nov, [facility] [address] [id number] [address] [place] [address], [place] [id number] October, [facility] [address] [id number] [address] [place] [id number] October, [facility] [address] [facility] [id number] [address] [address] Aug, [facility] [address] [facility] [id number] [address] [address] Nov, IMMUNIZATIONS No Known Immunizations SOCIAL HISTORY Never Assessed REASON FOR VISIT PLAN OF CARE VITAL SIGNS MEDICATIONS Unknown Medications RESULTS No Results PROCEDURES Procedure Date Ordered Result Body Site COMPREHENSIVE CARE MANAGEMENT HAP - OCK May 16, 2014 INSTRUCTIONS MEDICATIONS ADMINISTERED No Known Medications [...]
--- OUTSIDE RECORDS SUMMARY | 2019-11-29 08:58 | XMS REPORT ---
Author Author Curt Hughes [facility] Organization [facility] Address [address] [place], [place] [id number] Care Team Providers Care Day Camp Counselor Name Role Phone Saul [facility] JASON Unavailable PROBLEMS Type Condition ICD9-CM Code [id number] Code Onset Dates Condition S tatus SNOMED Code Problem Edema R60.9 Active 132175403 Problem Morbid obesity E66.01 Active 85115 6002 Problem Metabolic syndrome E88.81 Active 2 03611803 Problem Renal insufficiency N28.9 Active 268087366 Problem Vitamin D deficiency E55.9 Active 51843766 Problem Severe episode of recurrent major depressive disorder, without psychotic features F33.2 Active 93484951 Problem DANIELA (generalized anxiety disorder) F41.1 Active 98406937 Problem Mixed obsessional thoughts and acts F42.2 Active 92335166 Problem Chronic fatigue R53.82 Active 8422 9001 Problem Other chronic pain G89.29 Active 8 1702735 Problem Borderline personality disorder F60.3 Active 61243351 Problem Attachment disorder F94.1 Active Problem Sciatica, right side M54.31 Active [id number] Problem Insomnia G47.00 Active 444263036 Problem Anxiety F41.9 Active 45407115 Problem BMI 45.0-49.9, adult Z68.42 Active 895952296 Problem Hyperlipemia E78.5 Active 1991573 4 Problem Benign essential hypertension I10 Active 9216442 Problem Callous ulcer, limited to breakdown of skin L98.49 1 Active Problem Hammer toe of right foot M20.41 Activ e 779727859 Problem Hammer toe of second toe of right foot M20.41 Active 020015904 Problem Falling episodes R29.6 Active 161 [id number] ALLERGIES No Information ENCOUNTERS Encounter Location Date Diagnosis [facility] [address] [facility] [id number] [address] [place] [address] Dec, [facility] [address] [facility] [id number] [address] [place] [phone] 15 Dec, 2019 [facility] [address] [id number][place] [id number] Dec, [facility] [address] [facility] [id number] [address] [place] [phone] Dec, [facility] [address] [facility] [id number] [address] [place] [phone] Nov, [facility] [address] [facility] [id number] [address] [place] [phone] Nov, [facility] [address] [facility] [id number] [address] [place] [phone] October, [facility] [address] [facility] [id number] [address] [place] [phone] October, [facility] [address] [facility] [id number] [address] [place] [phone] October, [facility] [address] [facility] [id number] [address] [place] [phone] Sep, [facility] [address] [facility] [id number] [address] [place] [phone] Sep, [facility] [address] [facility] [id number] [address] [place] [phone] Sep, [facility] [address] [facility] [id number] [address] [place] [phone] Sep, DANIELA (generalized anxiety dis order) F41.1 ; Severe episode of recurrent major depressive disorder, without psychotic features F33.2 ; Mixed obsessional thoughts and acts F42.2 and Borderline personality disorder F60.3 [facility] [address] [place] [address] [facility] [id number] [address] 13 Sep, 2019 Severe episode of recurrent major depres sive disorder, without psychotic features F33.2 [facility] [address] [id number][place] [id number] Sep, [address] [id number][place] [id number] Sep, [address] [id number] [place] [phone] Sep, Benign essential hypertension I10 [facility] [address] [address] Sep, [facility] [address] [address] Sep, [facility] [address] [address] Sep, [facility] [address] [address] Sep, DANIELA (generalized anxiety dis order) F41.1 ; Severe episode of recurrent major depressive disorder, without psychotic features F33.2 ; Mixed obsessional thoughts and acts F42.2 and Borderline personality disorder F60.[id number] [place] [address] [id number] 31 Aug, 2019 [facility] [address] [phone] 28 Aug, [id number] [place] [address] [id number] Aug, [facility] [address] [place] [id number] [address] [place] [phone] 26 Aug, [id number] [place] [address] [id number] 17 Aug, 2019 Dizzy R42 ; Weight gain R63.5 ; Benign e ssential hypertension I10 ; Falling episodes R29.6 and History of gastric bypass Z98.84 [facility] [address] [place] [id number] [address] [place] [phone] 14 Aug, 2019 [facility] [address] [address] Aug, [facility] [address] [facility] [id number] [address] [place] [phone] Aug, DANIELA (generalized anxiety dis order) F41.1 ; Severe episode of recurrent major depressive disorder, without psychotic features F33.2 ; Mixed obsessional thoughts and acts F42.2 and Borderline personality disorder F60.3 [facility] [address] [id number][place] [id number] Aug, [facility] [id number] [place] [address] [id number] Aug, [facility] [address] [facility] [id number] [address] [place] [phone] Aug, [facility] [address] [place] [address] AVE [id number] [place] [address] [id number] Aug, [facility] [address] [place] [address] AVE [id number] [place] [address] [id number] Aug, [facility] [address] [facility] [id number] [address] [place] [phone] Aug, [facility] [address] [place] [address] AVE [id number] [place] [id number] Aug, Severe episode of recurrent major depres sive disorder, without psychotic features F33.2 ; Borderline personality disorder F60.3 ; Anxiety F41.9 and Attachment disorder F94.1 [facility] [address] [facility] [id number] [address] [place] [phone] Jul, [facility] [address] [facility] [id number] [address] [place] [phone] Jul, DANIELA (generalized anxiety dis order) F41.1 ; Severe episode of recurrent major depressive disorder, without psychotic features F33.2 ; Mixed obsessional thoughts and acts F42.2 and Borderline personality disorder F60.3 [facility] [address] [id number], [place] [id number] Jul, [facility] [address] [facility] [id number] [address] [place] [id number] 17 Jul, 2019 [facility] [address] [facility] [id number] [address] [place] [phone] 14 Jul, 2019 [facility] [address] [facility] [id number] [address] [place] [phone] 12 Jul, 2019 [facility] [address] [facility] [id number] [address] [place] [phone] 07 Jul, 2019 [facility] [address] [facility] [id number] [address] [place] [phone] Jun, DANIELA (generalized anxiety dis order) F41.1 ; Severe episode of recurrent major depressive disorder, without psychotic features F33.2 ; Mixed obsessional thoughts and acts F42.2 and Borderline personality disorder F60.[address] [place] [address] [id number], [place] [phone] Jun, [place] [address] [id number][place] [id number] Jun, [facility] [address] [facility] [id number] [address] [place] [phone] Jun, [place] [address] [facility] [id number] [address] [place] [phone] Jun, DANIELA (generalized anxiety dis order) F41.1 ; Severe episode of recurrent major depressive disorder, without psychotic features F33.2 ; Mixed obsessional thoughts and acts F42.2 and Borderline personality disorder F60.3 [facility] [address] [id number], [place] [id number] Jun, [facility] [address] [id number], [place] [id number] Jun, [facility] [address] [id number], [place] [id number] Jun, [place] [address] [id number], [place] [id number] Jun, Benign essential hypertension I10 ; Morb id obesity E66.01 ; Severe episode of recurrent major depressive disorder, without psychotic features F33.2 ; Excess skin L98.7 and Hyperlipemia E78.5 [facility] [address] [facility] [id number] [address] [place] [phone] Jun, [facility] [address] [facility] [id number] [address] [place] [phone] May, [facility] [address] [facility] [id number] [address] [place] [phone] May, Severe episode of recurrent major depressive disorder, without psychotic features F33.2 ; Mixed obsessional thoughts and acts F42.2 ; DANIELA (generalized anxiety disorder) F41.1 and Borderline personality disorder F60.3 [facility] [address] [place] [id number] [address] [place] [phone] May, [facility] [address] [facility] [id number] [address] [place] [phone] May, DANIELA (generalized anxiety dis order) F41.1 ; Severe episode of recurrent major depressive disorder, without psychotic features F33.2 ; Mixed obsessional thoughts and acts F42.2 and Borderline personality disorder F60.3 [facility] [address] [facility] [id number] [address] [place] [phone] May, [facility] [address] [facility] [id number] [address] [place] [phone] May, [facility] [address] [facility] [id number] [address] [place] [phone] May, Severe episode of recurrent major depressive disorder, without psychotic features F33.2 ; Mixed obsessional thoughts and acts F42.2 ; Borderline personality disorder F60.3 and DANIELA (generalized anxiety disorder) F41.1 [facility] [address] [id number] [address] [place] [address] [id number] May, Caries K02.9 [facility] [address] [id number], [place] [id number] May, Benign essential hypertension I10 [facility] [address] [id number], [place] [id number] Apr, [facility] [address] [id number], [place] [id number] Apr, Benign essential hypertension I10 [facility] [address] [facility] [id number] [address] [place] [phone] Apr, Borderline personality disor romero F60.3 ; DANIELA (generalized anxiety disorder) F41.1 ; Mixed obsessional thoughts and acts F42.2 and Severe episode of recurrent major depressive disorder, without psychotic features F33.2 [facility] [place] [address] [facility] [id number], [place] [id number] Apr, [facility] [place] [address] [facility] [address] [id number], [place] [id number] Apr, Benign essential hypertension I10 [facility] [address] [facility] [id number] [address] [place] [phone] Apr, Severe episode of recurrent major depressive disorder, without psychotic features F33.2 ; DANIELA (generalized anxiety disorder) F41.1 ; Borderline personality disorder F60.3 and Mixed obsessional thoughts and acts F42.2 [facility] [address] [id number] [address] [place] [address] [id number] Apr, Dental examination Z01.20 [facility] [address] [id number] [address] [place] [address] [id number] Apr, Caries K02.9 and Dental exam ination Z01.20 [facility] [address] [facility] [id number] [address] [place] [phone] Apr, DANIELA (generalized anxiety dis order) F41.1 ; Severe episode of recurrent major depressive disorder, without psychotic features F33.2 ; Mixed obsessional thoughts and acts F42.2 and Borderline personality disorder F60.3 [facility] [address] [facility] [id number] [address] [place] [phone] Mar, Severe episode of recurrent major depressive disorder, without psychotic features F33.2 ; Mixed obsessional thoughts and acts F42.2 ; Borderline personality disorder F60.3 and DANIELA (generalized anxiety disorder) F41.1 [facility] [address] [facility] [id number] [address] [place] [phone] Mar, Severe episode of recurrent major depressive disorder, without psychotic features F33.2 ; Mixed obsessional thoughts and acts F42.2 ; DANIELA (generalized anxiety disorder) F41.1 and Borderline personality disorder F60.3 [facility] [address] [facility] [id number] [address] [place] [address] [phone] Mar, Dental examination Z01.20 an d Caries K02.[address] [id number], [place] [id number] Mar, Benign essential hypertension I10 and Fa lling episodes R29.6 [facility] [address] [facility] [id number] [address] [place] [phone] Mar, [facility] [address] [facility] [id number] [address] [place] [phone] Mar, Severe episode of recurrent major depressive disorder, without psychotic features F33.2 ; Mixed obsessional thoughts and acts F42.2 ; Borderline personality disorder F60.3 and DANIELA (generalized anxiety disorder) F41.1 [facility] [address] [facility] [id number] [address] [place] [phone] Mar, [facility] [address] [facility] [id number] [address] [place] [phone] Mar, [place] [address] [id number], [place] [id number] Mar, [facility] [address] [facility] [id number] [address] [place] [phone] Mar, Severe episode of recurrent major depressive disorder, without psychotic features F33.2 ; Mixed obsessional thoughts and acts F42.2 ; Borderline personality disorder F60.3 and DANIELA (generalized anxiety disorder) F41.1 [facility] [address] [facility] [id number] [address] [place] [phone] Mar, [facility] [address] [id number] [address] [place] [address] [id number] Feb, Dental examination Z01.20 an d Periodontitis K05.30 [facility] [address] [facility] [id number] [address] [place] [phone] Feb, DANIELA (generalized anxiety dis order) F41.1 ; Severe episode of recurrent major depressive disorder, without psychotic features F33.2 ; Mixed obsessional thoughts and acts F42.2 and Borderline personality disorder F60.3 [facility] [address] [id number], [place] [id number] Feb, Acute pain of right knee M25.561 ; Fall, initial encounter W19.XXXA ; Benign essential hypertension I10 and Edema R60.9 [place] [address] [place] [id number] [address] [place] [phone] Feb, [place] [address] [place] [id number] [address] [place] [phone] Feb, DANIELA (generalized anxiety dis order) F41.1 ; Severe episode of recurrent major depressive disorder, without psychotic features F33.2 ; Mixed obsessional thoughts and acts F42.2 and Borderline personality disorder F60.3 [facility] [address] [place] [phone] Feb, [place] [address] [place] [phone] Jan, [place] [address] [place] [phone] Jan, [facility] [address] [facility] [id number] [address] [place] [phone] Jan, [facility] [address] [address] [id number], [place] [id number] 15 Jan, 2019 Callus of heel L84 ; Fissure in skin R23 .4 and Hammer toe of second toe of right foot M20.41 [facility] [id number] [place] [address] [id number] Jan, [facility] [address] [facility] [id number] [address] [place] [phone] Jan, [facility] [address] [facility] [id number] [address] [place] [phone] Jan, [facility] [address] [facility] [id number] [address] [place] [phone] Jan, Severe episode of recurrent major depressive disorder, without psychotic features F33.2 ; DANIELA (generalized anxiety disorder) F41.1 ; Mixed obsessional thoughts and acts F42.2 and Borderline personality disorder F60.3 [facility] [address] [facility] [id number] [address] [place] [address] Jan, [facility] [id number] [place] [address] [id number] Jan, Benign essential hypertension I10 [facility] [id number] [place] [address] [id number] Dec, Callous ulcer, limited to breakdown of s kin L98.491 and Morbid obesity E66.01 [facility] [address] [facility] [id number] [address] [place] [phone] Dec, [facility] [address] [facility] [id number] [address] [place] [phone] Dec, [facility] [address] [facility] [id number] [address] [place] [phone] Dec, [facility] [address] [facility] [id number] [address] [place] [phone] Dec, [facility] [address] [facility] [id number] [address] [place] [phone] Dec, Severe episode of recurrent major depressive disorder, without psychotic features F33.2 [facility] [address] [facility] [id number] [address] [place] [phone] Dec, DANIELA (generalized anxiety dis order) F41.1 ; Severe episode of recurrent major depressive disorder, without psychotic features F33.2 ; Mixed obsessional thoughts and acts F42.2 and 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 [facility] [place] [address] [id number], [place] [id number] Dec, Morbid obesity E66.01 [facility] [address] [facility] [id number] [address] [place] [phone] Dec, [facility] [address] [facility] [id number] [address] [place] [phone] Dec, [facility] JENNY [address] 340[address] [id number], [place] [address] Nov, [facility] [address] [address] [id number], [place] [id number] Nov, [facility] [address] [facility] [id number] [address] [place] [phone] Nov, [facility] [address] [facility] [id number] [address] [place] [phone] Nov, [facility] [address] [facility] [id number] [address] [place] [address] Nov, DANIELA (generalized anxiety dis order) F41.1 ; Severe episode of recurrent major depressive disorder, without psychotic features F33.2 ; Mixed obsessional thoughts and acts F42.2 and 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 [facility] TORRIE [facility] [address] [id number], [place] [id number] Nov, Morbid obesity E66.01 [facility] [address] [facility] [id number] [address] [place] [phone] Nov, [facility] [address] [facility] [id number] [address] [place] [phone] Nov, DANIELA (generalized anxiety dis order) F41.1 ; Mixed obsessional thoughts and acts F42.2 ; Severe episode of recurrent major depressive disorder, without psychotic features F33.2 and 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 [facility] [address] [id number], [place] [id number] October, Morbid obesity E66.01 [facility] [address] [id number], [place] [id number] October, Benign essential hypertension I10 and Mo rbid obesity E66.01 [facility] [address] [id number], [place] [id number] October, [facility] [address] [place] [address] October, Severe episode of recurrent major depressive disorder, without psychotic features F33.2 [facility] [address] [facility] [address] [id number], [place] [id number] October, Morbid obesity E66.01 [facility] [address] [facility] [address] [id number], [place] [id number] October, [facility] [address] [place] [id number] [address] [place] [phone] October, Severe episode of recurrent major depressive disorder, without psychotic features F33.2 ; DANIELA (generalized anxiety disorder) F41.1 ; Mixed obsessional thoughts and acts F42.2 and 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 [facility] Jama [facility] [id number] [place] [address] [id number] October, Morbid obesity E66.01 [facility] [address] [facility] [id number] [address] [place] [address] [id number] Sep, Dental examination Z01.20 [facility] [address] [place] [address] AVE [id number], [place] [id number] Sep, [facility] [address] [place] [id number] [address] [place] [phone] Sep, Sore in mouth K13.79 and Mor bid obesity E66.01 [facility] [address] [facility] [id number] [address] [place] [phone] Sep, Dental examination Z01.20 [facility] [address] [place] [id number] [address] [place] [phone] Sep, Anxiety disorder, unspecifie d F41.9 [facility] [address] [id number], [place] [id number] Sep, Mouth ulcer K12.1 [facility] [address] [id number], [place] [id number] Sep, Morbid obesity E66.01 [facility] [address] [id number], [place] [id number] Sep, Allergic rhinitis, unspecified seasonali ty, unspecified trigger J30.9 and Shortness of breath R06.02 [facility] [address] [id number][place] [id number] Sep, 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 [facility] [address] [id number], [place] [id number] Aug, Mouth abscess K12.2 ; Mouth ulcer K12.1 ; Bloating R14.0 and Morbid obesity E66.01 [facility] [address] [id number], [place] [id number] Aug, [facility] [address] [id number], [place] [id number] Aug, [facility] [address] [id number], [place] [id number] Jul, Major depressive disorder, recurrent, mo derate F33.1 ; Abscess of arm, left L02.414 ; BMI 45.0-49.9, adult Z68.42 and Morbid obesity E66.01 [facility] [address] [id number], [place] [id number] Jul, [facility] [address] [id number], [place] [id number] Jul, [facility] [address] [id number], [place] [id number] Jun, Pain in right knee M25.561 and Other chr onic pain G89.[address] [id number], [place] [id number] Jun, Benign essential hypertension I10 ; BMI 45.0-49.9, adult Z68.42 ; Morbid obesity E66.01 ; Vitamin D deficiency E55.9 ; Insomnia G47.00 ; 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 ; Edema R60.9 ; Recurrent major depressive disorder, in partial remission F33.41 ; Chronic fatigue R53.82 ; Acute pain of right knee M25.561 ; Metabolic syndrome E88.81 and Irritable mood R45.4 [facility] [address] [facility] [id number] [address] [place] [phone] Jun, [facility] [address] [id number], [place] [id number] Jun, Irritable mood R45.4 [facility] [address] [facility] [id number] [address] [place] [phone] May, [facility] [address] [facility] [id number] [address] [place] [phone] May, [facility] [address] [facility] [id number] [address] [place] [phone] May, Recurrent major depressive d isorder, in partial remission F33.41 ; Mixed obsessional thoughts and acts F42.2 ; 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 and BMI 45.0-49.9, adult Z68.42 [facility] [address] [facility] [id number] [address] [place] [phone] Apr, [facility] [address] [facility] [id number] [address] [place] [phone] Apr, [facility] [address] [facility] [id number] [address] [place] [phone] Apr, [facility] [address] [facility] [id number] [address] [place] [phone] Apr, [facility] [address] [facility] [id number] [address] [place] [phone] Mar, Mixed obsessional thoughts a nd acts F42.2 ; Recurrent major depressive disorder, in partial remission F33.41 ; DANIELA (generalized anxiety disorder) F41.1 and BMI 45.0-49.9, adult Z68.42 [facility] [address] [id number], [place] [id number] Mar, [facility] [address] [id number], [place] [id number] Mar, BMI 45.0-49.9, adult Z68.42 ; Instabilit y of right knee joint M25.361 and Rash R21 [facility] [address] [facility] [id number] [address] [place] [phone] Jan, Recurrent major depressive d isorder, in partial remission F33.41 ; Mixed obsessional thoughts and acts F42.2 and BMI 45.0-49.9, adult Z68.42 [facility] [address] [id number], [place] [id number] Jan, [facility] [address] [id number], [place] [id number] Jan, Benign essential hypertension I10 ; BMI 45.0-49.9, adult Z68.42 ; Metabolic syndrome E88.81 and Allergic rhinitis, unspecified seasonality, unspecified trigger J30.9 [facility] [address] [facility] [id number] [address] [place] [id number] Dec, DANIELA (generalized anxiety dis order) F41.1 and Depressive disorder, not elsewhere classified F32.9 [facility] [address] [id number], [place] [id number] Dec, Recurrent major depressive disorder, in partial remission F33.41 [facility] [address] [id number], [place] [id number] Dec, [facility] [address] [id number], [place] [id number] Nov, [facility] [address] [id number], [place] [id number] Nov, Recurrent major depressive disorder, in partial remission F33.41 [facility] [address] [place] [phone] Nov, Recurrent major depressive d isorder, in partial remission F33.41 ; Mixed obsessional thoughts and acts F42.2 ; DANIELA (generalized anxiety disorder) F41.1 and BMI 45.0-49.9, adult Z68.[address] [facility] [address] [id number], [place] [id number] Nov, [facility] [address] [id number], [place] [id number] Nov, Other conjunctivitis of both eyes H10.89 and Sciatica, right side M54.[address] [facility] [address] [id number], [place] [id number] Nov, [facility] [address] [id number], [place] [id number] Nov, [facility] [address] [id number], [place] [id number] October, [facility] [address] [id number], [place] [id number] October, [facility] [address] [facility] [id number] [address] [place] [phone] October, BMI 45.0-49.9, adult Z68.42 ; Mixed obsessional thoughts and acts F42.2 ; Recurrent major depressive disorder, in partial remission F33.41 and DANIELA (generalized anxiety disorder) F41.[address] [facility] [address] [id number], [place] [id number] October, Benign essential hypertension I10 ; Morb id obesity E66.01 and BMI 45.0-49.9, adult Z68.[address] [facility] [address] [id number] [place] [id number] Sep, [facility] [address] [id number], [place] [id number] Sep, [address] [id number], [place] [id number] Sep, [address] [id number], [place] [id number] Sep, Hospital discharge follow-up Z09 ; Aller gic rhinitis, unspecified seasonality, unspecified trigger J30.9 and Shortness of breath R06.[address] [id number], [place] [id number] Sep, Recurrent major depressive disorder, in partial remission F33.[address] [id number] [place] [address] [id number] Aug, Irritable mood R45.[address] [phone] Aug, [address] [id number] [place] [address] [id number] Jul, Benign essential hypertension I10 ; Robert a R60.9 and Impacted cerumen of left ear H61.22 [place] [address] [place] [id number] [address] [place] [phone] 14 Jul, 2017 Major depression F32.9 ; Rec urrent major depressive disorder, in partial remission F33.41 and Anxiety F41.9 [place] [address] [place] [id number] [address] [place] [phone] Jun, Major depression F32.9 ; Rec urrent major depressive disorder, in partial remission F33.41 and Anxiety F41.[address] [id number] [place] [address] [id number] Jun, Major depression F32.9 ; Morbid obesity E66.01 ; Irritable mood R45.4 ; Hand weakness R29.898 and Vitamin D deficiency E55.[address] [id number] [place] [address] [id number] Jun, [facility] [address] [id number], [place] [id number] May, Major depression F32.9 [facility] [address] [facility] [id number] [address] [place] [phone] May, Major depression F32.9 [facility] [address] [id number], [place] [id number] May, BMI 50.0-59.9, adult Z68.43 ; Major depr ession F32.9 ; Anxiety F41.9 ; Hypertrophic toenail L60.2 and Pain of left great toe M79.675 [facility] [address] [id number], [place] [id number] May, Recurrent major depressive disorder, in partial remission F33.41 [facility] [address] [facility] [id number] [address] [place] [phone] Apr, [facility] [address] [id number], [place] [id number] Apr, [facility] [address] [facility] [id number] [address] [place] [phone] Apr, Major depression F32.9 [facility] [address] [id number], [place] [id number] Apr, Severe episode of recurrent major depres sive disorder, without psychotic features F33.2 ; Anxiety F41.9 and Insomnia G47.00 [facility] [address] [id number], [place] [id number] Apr, [facility] [address] [facility] [id number] [address] [place] [phone] Apr, [facility] [address] [id number], [place] [id number] Apr, [facility] [address] [id number], [place] [id number] Mar, [facility] [address] [id number], [place] [id number] Mar, Allergic conjunctivitis of both eyes H10 .13 [facility] [address] [facility] [id number] [address] [place] [phone] Mar, Major depression F32.9 [facility] [address] [id number], [place] [id number] Mar, Metabolic syndrome E88.81 ; History of g astric bypass Z98.890 ; Benign essential hypertension I10 ; Allergic conjunctivitis of both eyes H10.13 and Morbid obesity E66.01 [facility] [address] [facility] [id number] [address] [place] [phone] Mar, Major depression F32.9 [facility] [address] [id number], [place] [id number] Feb, [facility] [address] [facility] [id number] [address] [place] [phone] Feb, Major depression F32.9 [facility] [address] [id number], [place] [id number] Feb, Subacute maxillary sinusitis J01.00 and Bronchitis J40 [place] [address] [facility] [id number] [address] [place] [phone] 06 Feb, 2017 Major depressive disorder, r ecurrent, moderate F33.1 [facility] [address] [id number], [place] [id number] Jan, [facility] [address] [id number], [place] [id number] Jan, Acute non-recurrent maxillary sinusitis J01.00 and Skin tag L91.8 [facility] [address] [id number], [place] [id number] Jan, Cough R05 and Sinus congestion R09.81 [facility] [address] [id number], [place] [id number] Jan, [facility] [address] [id number], [place] [id number] Jan, Benign essential hypertension I10 ; Hist ory of gastric bypass Z98.890 and Nausea and vomiting in adult R11.2 [place] [address] [place] [id number] [address] [place] [phone] Jan, Major depressive disorder, r ecurrent, moderate F33.1 [place] [address] [place] [id number] [address] [place] [address] Dec, Insomnia G47.00 ; Recurrent major depressive disorder, in partial remission F33.41 and Morbid obesity E66.01 [place] [address] [facility] [id number] [place] [address] [id number] Dec, [facility] [address] [id number] [place] [address] [id number] Dec, Chronic bacterial conjunctivitis of left eye H10.[address] [id number] [place] [address] [id number] Nov, [address] [id number] [place] [address] [id number] Nov, Dental examination Z01.[address] [id number] [place] [address] [id number] Nov, Benign essential hypertension I10 ; Hist ory of gastric bypass Z98.890 and Nausea and vomiting in adult R11.2 [place] [address] [place] [id number] [address] [place] [phone] Nov, Major depressive disorder, r ecurrent, moderate F33.1 ; Generalized anxiety disorder F41.1 and Insomnia due to other mental disorder F51.05 [place] [address] [place] [id number] [address] [place] [address] Nov, Recurrent major depressive d isorder, in partial remission F33.41 ; Insomnia G47.00 and Morbid obesity E66.01 [facility] [address] [id number] Kiesha ESCOBEDO S [id number] October, Abscess of left arm L02.414 [place] [address] [facility] [id number] [address] [place] [phone] October, Morbid obesity E66.01 ; Lida r depression F32.9 and Recurrent major depressive disorder, in partial remission F33.[address] [place] [address] [id number], [place] [id number] Sep, Benign essential hypertension I10 ; Morb id obesity E66.01 ; S/P gastric bypass Z98.84 ; Abscess L02.91 and Chronic bacterial conjunctivitis of left eye H10.[address] [id number], [place] [id number] Sep, Dental examination Z01.20 [place] [address] [facility] [id number] [address] [place] [address] Sep, Morbid obesity E66.01 ; Lida r depression F32.9 and Recurrent major depressive disorder, in partial remission F33.41 [place] [address] [place] [address] Jul, [place] [address] [place] [id number] [address] [place] [id number] Jul, Major depressive disorder, r ecurrent, moderate F33.1 [place] [address] [place] [id number] [address] [place] [phone] Jul, Major depressive disorder, r ecurrent, moderate F33.1 and Generalized anxiety disorder F41.[address] [id number], [place] [id number] Jul, Cough R05 [place] [address] [facility] [id number] [address] [place] [phone] 16 Jul, 2016 Morbid obesity E66.01 ; Lida r depression F32.9 and Recurrent major depressive disorder, in partial remission F33.[address] [place] [address] [id number], [place] [id number] Jul, [place] [address] [id number], [place] [id number] Jul, [facility] [address] [id number], [place] [id number] Jul, Gastroenteritis K52.9 and Cough R05 [facility] [address] [facility] [address] [id number], [place] [id number] Jun, Acute bacterial conjunctivitis of left e ye H10.32 [place] [address] [facility] [id number] [address] [place] [phone] Jun, [place] [address] [facility] [id number] [phone] Jun, Recurrent major depressive d isorder, in partial remission F33.41 [place] [address] [place] [phone] 28 May, 2016 Major depression F32.9 and M orbid obesity E66.01 [place] [address] [place] [address] May, [facility] [address] [place] [address] AVE [id number], [place] [id number] May, Thrush B37.0 [place] [address] [facility] [id number] [address] [place] [id number] Apr, Major depressive disorder, r ecurrent, moderate F33.1 [place] [address] [place] [address] Apr, Insomnia G47.00 ; Major depr ession F32.9 and Recurrent major depressive disorder, in partial remission F33.41 [place] [address] [place] [id number] [address] [place] [phone] Apr, [place] [address] [facility] [id number] [address] [place] [phone] 02 Apr, 2016 Major depression F32.9 and R ecurrent major depressive disorder, in partial remission F33.[address] [facility] [address] [id number], [place] [id number] Mar, Benign essential hypertension I10 ; Morb id obesity E66.01 ; Impacted cerumen of both ears H61.23 ; Laceration of finger of right hand, initial encounter S61.219A and Encounter for immunization Z23 [facility] [address] [facility] [id number] [address] [place] [phone] 17 Mar, 2016 [facility] [address] [facility] [id number] [address] [place] [phone] 13 Mar, 2016 [facility] [address] [facility] [id number] [address] [place] [phone] Mar, [facility] [address] [id number], [place] [id number] Feb, Nausea R11.0 ; Blood in the stool K92.1 and Benign essential hypertension I10 [facility] [address] [facility] [id number] [address] [place] [phone] Feb, Major depression F32.9 and R ecurrent major depressive disorder, in partial remission F33.41 [facility] [address] [id number], [place] [id number] Feb, [place] [address] [id number], [place] [id number] Feb, Recurrent major depressive disorder, in partial remission F33.41 [facility] [address] [id number], [place] [id number] Jan, [place] [address] [id number], [place] [id number] Jan, Benign essential hypertension I10 ; Robert a R60.9 and Hyperlipidemia, unspecified hyperlipidemia type E78.5 [facility] [address] [id number], [place] [id number] Jan, Recurrent major depressive disorder, in partial remission F33.41 [facility] [address] [id number] FANNY S [id number] Jan, [facility] [address] [id number], [place] [id number] Jan, [facility] [address] [id number], [place] [id number] Jan, [facility] [address] [facility] [id number] [address] [place] [phone] Jan, [facility] [address] [facility] [id number] [address] [place] [phone] Dec, [facility] [address] [facility] [id number] [address] [place] [address] Nov, [facility] [address] [facility] [id number] [address] [place] [address] Nov, Major depression F32.9 [facility] [address] [facility] [id number] [address] [place] [phone] Nov, [facility] [address] [facility] [id number] [address] [place] [phone] Nov, [facility] [address] [facility] [id number] [address] [place] [address] Nov, Major depressive disorder, r ecurrent episode, mild F33.0 and Anxiety F41.9 [facility] [address] [facility] [address] [id number], [place] [id number] Nov, [facility] [id number] [place] [address] [id number] October, Left elbow pain M25.522 and Other season al allergic rhinitis J30.2 [facility] [address] [facility] [address] [id number] [place] [address] [id number] October, [facility] [address] [facility] [id number] [address] [place] [phone] October, Major depressive disorder, r ecurrent, moderate F33.1 [facility] [address] [facility] [id number] [address] [place] [phone] October, Major depression F32.9 [facility] [address] [facility] [id number] [address] [place] [address] Sep, [place] or callus L84 and Onych omycosis B35.1 [facility] [address] [facility] [id number] [address] [place] [phone] Sep, Major depressive disorder, r ecurrent, moderate F33.1 [facility] [address] [facility] [id number] [address] [place] [phone] Sep, Major depression F32.9 [facility] [address] [facility] [id number] [address] [place] [phone] Sep, Moderate episode of recurren t major depressive disorder F33.1 [facility] [id number] [place] [address] [id number] Sep, Muscle strain T14.8 [facility] [address] [facility] [id number] [address] [place] [phone] Aug, Major depression F32.9 [facility] [address] [facility] [id number] [address] [place] [phone] Aug, Major depression F32.9 [facility] [address] [facility] [id number] [address] [place] [address] Jul, Morbid obesity E66.01 and Ma cora depression F32.9 [facility] [address] [facility] [id number] [address] [place] [phone] Jul, Depression, major, recurrent , moderate F33.1 [facility] [address] [id number], [place] [id number] Jul, [facility] [address] [facility] [id number] [address] [place] [address] Jul, [facility] [address] [facility] [id number] [address] [place] [phone] Jul, Major depression F32.9 and M orbid obesity E66.[address] [id number], [place] [id number] 11 Jul, 2015 Type II diabetes mellitus E11.9 ; Callus of foot L84 ; Benign essential hypertension I10 and Renal insufficiency N28.9 [place] [address] [facility] [id number] [address] [place] [phone] 09 Jul, 2015 Depression, major, recurrent , moderate F33.1 [place] [address] [facility] [id number] [address] [place] [phone] Jul, Major depression F32.9 [place] [address] [facility] [id number] [address] [place] [address] Jul, [place] [address] [facility] [id number] [address] [place] [phone] Jun, Major depression F32.9 [place] [address] [place] [id number] [address] [place] [phone] Jun, Major depressive disorder, r ecurrent, moderate F33.1 [place] [address] [address] [facility] [id number] [address] [place] [id number] Jun, [place] [address] [address] [place] [id number] [address] [place] [phone] Jun, Major depressive disorder, r ecurrent, moderate F33.1 and Major depression F32.[address] [id number] [id number] Jun, Type II diabetes mellitus E11.9 [place] [address] [address] [facility] [id number] [address] [place] [phone] Jun, Depression, major, recurrent , moderate F33.1 [place] [address] [address] [facility] [id number] [address] [place] [phone] May, Major depressive disorder, r ecurrent, moderate F33.1 [place] [address] [address] [facility] [id number] [address] [place] [phone] May, [facility] [address] [id number] [id number] May, Edema R60.9 [facility] [address] [facility] [id number] [address] [place] [phone] May, Insomnia G47.00 and Major de pression F32.[address] [facility] [address] [id number] [id number] May, Morbid obesity E66.01 ; Edema R60.9 ; Sh ortness of breath R06.02 ; Benign essential hypertension I10 and Renal insufficiency N28.9 [facility] [address] [id number] [id number] May, Hyperlipemia 272.4 and Renal insufficien cy N28.9 [facility] [address] [facility] [id number] [address] [place] [phone] Apr, Major depression F32.9 [facility] [address] [facility] [id number] [address] [place] [phone] Apr, [facility] [address] [facility] [id number] [address] [place] [phone] Apr, Major depressive disorder, r ecurrent, moderate F33.1 [facility] [address] [place] [address] AVE [id number] [id number] Apr, Type II diabetes mellitus E11.9 ; Benign essential hypertension I10 ; Edema R60.9 and Renal insufficiency N28.9 [facility] [address] [facility] [id number] [address] [place] [address] Mar, Major depressive disorder, r ecurrent, moderate F33.1 [facility] [address] [facility] [id number] [address] [place] [address] Mar, [facility] [address] [facility] [id number] [address] [place] [address] Mar, Major depression F32.9 [facility] [address] [id number] [id number] Mar, Morbid obesity E66.01 ; Benign essential hypertension I10 and Type II diabetes mellitus E11.9 [facility] [address] [place] [id number] [address] [place] [address] Feb, Major depressive disorder, r ecurrent, moderate F33.1 [facility] [address] [facility] [id number] [address] [place] [address] Feb, Major depressive disorder, r ecurrent episode, in partial or unspecified remission 296.35 ; Anxiety state, unspecified 300.00 and Morbid obesity 278.01 [facility] [address] [place] [id number] [address] [place] [address] Feb, [facility] [address] [place] [address] [id number] [place] [address] [id number] 16 Feb, 2015 Vomiting 787.03 and Viral syndrome 079.9 [address] [place] [id number] [address] [place] [address] 15 Feb, 2015 Major depression, recurrent 296.30 ; Generalized anxiety disorder 300.02 and No condition on [place] II V71.09 [facility] [address] [place] [address] A[id number] [place] [id number] Feb, Skin tag 701.9 [facility] [address] [place] [id number] [place] [address] Feb, [facility] [address] [place] [id number] [address] [place] [address] Jan, Depression, major, recurrent , moderate 296.32 [facility] [address] [place] [address] A[id number] [place] [id number] Jan, Nausea and vomiting 787.01 ; Rib pain on right side 786.50 and Fall on or from sidewalk curb E880.1 [facility] [address] [facility] [id number] [address] [place] [address] Jan, [facility] [address] [place] [id number] [address] [place] [address] Jan, Major depressive disorder, r ecurrent episode, in partial or unspecified remission 296.35 and Anxiety state, unspecified 300.00 [facility] [address]ita [facility] [id number][place] [id number] Jan, [facility] [address] [place] [id number] [place] [address] Jan, Depression, major, recurrent , moderate 296.32 [facility] [address] [place] [address] Jan, Major depression, recurrent 296.30 ; No condition on [place] II V71.09 and No condition on axis III V71.09 [facility] [address] [place] [address] [id number][place] [id number] Jan, Drug-induced nausea and vomiting 787.[address] [address] Jan, Depression, major, recurrent , moderate 296.32 [place] [id number] [address] [place] [address] Dec, Depression, major, recurrent , moderate 296.[address] [id number][place] [id number] Dec, Morbid obesity 278.01 ; Metabolic syndro me 277.7 ; Hyperlipemia 272.4 ; Benign essential hypertension 401.1 ; Dietary counseling V65.3 ; Exercise counseling V65.41 and Inflamed skin tag 701.9 [place] [id number] [address] [place] [address] Dec, Depression, major, recurrent , moderate 296.[address] [address] Dec, [place] [id number] [address] [place] [address] Dec, Major depression, recurrent 296.30 ; Anxiety, generalized 300.02 and No condition on [place] II V71.09 [facility] [address] [address] Dec, Depression, major, recurrent , moderate 296.32 [place] [address] [place] [id number] [address] [place] [address] Dec, Major depressive disorder, r ecurrent episode, moderate 296.32 [place] [address] [place] 8[address] Dec, Depression, major, recurrent , moderate 296.32 [place] [address] [place] 8[address]32[address] Dec, Depression, major, recurrent , moderate 296.32 [place] [address] [place] 8[address]32[address] Dec, Depression, major, recurrent , moderate 296.32 [place] [address] [address] Dec, Depression, major, recurrent , moderate 296.32 [place] [address] [address] Nov, Depression, major, recurrent , moderate 296.32 [place] [address] [address] Nov, Major depression 296.20 ; So cial phobia 300.23 and No condition on [place] II V71.09 [place] [address] [address] Nov, Depression, major, recurrent , moderate 296.32 [place] [address] [place] 8[address]32[address] Nov, Major depressive disorder, r ecurrent episode, moderate 296.32 and Generalized anxiety disorder 300.02 [place] [address] [address] Nov, Depression, major, recurrent , moderate 296.32 [facility] [address] [id number] [address] [place] [id number] 04 Nov, 2014 Depression, major, recurrent , moderate 296.32 [facility] [address] [id number] [address] [place] [address] October, Generalized anxiety disorder 300.02 ; No condition on [place] II V71.09 and Major depressive disorder, recurrent 296.30 [facility] [address] [id number] [address] [place] [address] 14 Sep, 2014 [facility] [address] [id number] [address] [place] [address] Sep, [facility] [address] [id number] [address] [place] [address] 24 Aug, 2014 [facility] [address] [id number] [address] [place] [id number] 24 Aug, 2014 [facility] [address] [id number] [address] [place] [address] Aug, [facility] [address] [id number] [address] [place] [address] 23 Aug, 2014 [facility] [address] [id number] [address] [place] [address] Aug, [facility] [address] [id number] [address] [place] [address] Aug, [facility] [address] [id number] [address] [place] [id number] 20 Aug, 2014 [facility] [address] [id number] [address] [place] [phone] 20 Aug, 2014 [facility] [address] [id number] [address] [place] [id number] 13 Aug, 2014 [facility] [address] [id number] [address] [place] [address] 13 Aug, 2014 [facility] [address] [id number] [address] [place] [phone] 13 Aug, 2014 [facility] [address] [id number] [address] [place] [address], [place] [address] Aug, [facility] [address] [id number] [address] [place] [address], [place] [address] Aug, [facility] [address] [id number] [address] [place] [address], [place] [address] Aug, [facility] [address] [id number] [address] [place] [address], [place] [address] Aug, [facility] [address] [id number] [address] [place] [address], [place] [address] Aug, [facility] [address] [id number] [address] [place] [address], [place] [address] Aug, [facility] [address] [id number] [address] [place] [address], [place] [address] Aug, [facility] [address] [id number] [address] [place] [address], [place] [address] Jul, [facility] [address] [id number] [address] [place] [address], [place] [address] Jul, [facility] [address] [id number] [address] [place] [address], [place] [address] Jul, [facility] [address] [id number] [address] [place] [address], [place] [address] Jul, 2014 [facility] [address] [id number] [address] [place] [address], [place] [address] Jul, [facility] [address] [id number] [address] [place] [address], [place] [address] Jul, [facility] [address] [id number] [address] [place] [address], [place] [address] Jun, [facility] [address] [id number] [address] [place] [address], [place] [address] Jun, [facility] [address] [id number] [address] [place] [address], [place] [address] Jun, [facility] [address] [id number] [address] [place] [address], [place] [address] Jun, [facility] [address] [id number] [address] [place] [address], [place] [address] Jun, [facility] [address] [id number] [address] [place] [address], [place] [address] Jun, [facility] [address] [id number] [address] [place] [address], [place] [address] Jun, [facility] [address] [id number] [address] [place] [address], [place] [address] Jun, [facility] [address] [id number] [address] [place] [address], [place] [address] Jun, [facility] [address] [id number] [address] [place] [address], [place] [address] Jun, [facility] [address] [id number] [address] [place] [address], [place] [address] Jun, [facility] [address] [id number] [address] [place] [address], [place] [address] Jun, [facility] [place] [address] [id number] [place] [id number] Jun, [facility] [address] [id number] [address] [place] [address], [place] [address] Jun, [facility] [address] [id number] [address] [place] [address], [place] [address] Jun, [facility] [address] [id number] [address] [place] [address], [place] [address] Jun, [facility] [address] [id number] [address] [place] [address], [place] [address] May, [facility] [address] [id number] [address] [place] [address], [place] [address] May, [facility] [address] [id number] [address] [place] [address], [place] [address] May, [facility] [address] [id number] [address] [place] [address], [place] [address] May, [facility] [address] [id number] [address] [place] [address], [place] [address] Apr, [facility] [address] [id number] [address] [place] [address], [place] [address] Apr, [facility] [address] [id number] [address] [place] [address], [place] [address] Apr, [facility] [address] [id number] [address] [place] [address], [place] [address] Apr, [facility] [address] [id number] [address] [place] [address], [place] [address] Apr, [facility] [address] [id number] [address] [place] [address], [place] [address] Apr, [facility] [address] [id number] [address] [place] [address], [place] [address] Apr, [facility] [address] [id number] [address] [place] [address], [place] [address] Apr, [facility] [address] [id number] [address] [place] [address] Apr, [facility] [address] [id number] [address] [place] [address] Apr, [facility] [address] [id number] [address] [place] [address], [place] [address] Apr, [facility] [address] [id number] [address] [place] [address], [place] [address] Apr, [facility] [address] [id number] [address] [place] [address] Apr, [facility] [address] [id number] [address] [place] [address], [place] [address] Apr, [facility] [address] [id number] [address] [place] [address], [place] [address] Apr, [facility] [address] [id number] [address] [place] [address], [place] [address] Apr, [facility] [address] [id number] [address] [place] [address], [place] [address] Apr, [facility] [address] [id number] [address] [place] [address], [place] [address] Apr, [facility] [address] [id number] [address] [place] [address], [place] [address] Apr, [facility] [address] [id number] [address] [place] [address], [place] [address] Apr, [facility] [address] [id number] [address] [place] [address], [place] [address] Mar, [facility] [address] [id number] [address] [place] [address], [place] [address] Mar, [facility] [address] [id number] [address] [place] [address], [place] [address] Mar, [facility] [address] [id number] [address] [place] [address], [place] [address] Mar, [facility] [address] [id number] [address] [place] [address], [place] [address] Mar, [facility] [address] [id number] [address] [place] [address], [place] [address] Mar, [facility] [address] [id number] [address] [place] [address], [place] [address] Mar, [facility] [address] [id number] [address] [place] [address], [place] [address] Mar, [facility] [address] [id number] [address] [place] [address], [place] [address] Mar, [facility] [address] [id number] [address] [place] [address], [place] [address] Mar, [facility] [address] [id number] [address] [place] [address], [place] [address] Feb, [facility] [address] [id number] [address] [place] [address], [place] [address] Feb, [facility] [address] [id number] [address] [place] [address], [place] [address] Feb, [facility] [address] [id number] [address] [place] [address], [place] [address] Feb, [facility] [address] [id number] [address] [place] [address], [place] [address] Jan, [facility] [address] [id number] [address] [place] [address], [place] [address] Jan, [facility] [address] [id number] [address] [place] [address], [place] [address] Jan, [facility] [address] [id number] [address] [place] [address], [place] [address] Jan, [facility] [address] [id number] [address] [place] [address], [place] [address] Jan, [facility] [address] [id number] [address] [place] [address], [place] [address] Jan, [facility] [address] [id number] [address] [place] [address], [place] [address] Dec, [facility] [address] [id number] [address] [place] [address], [place] [address] Dec, [facility] [address] [id number] [address] [place] [address], [place] [address] Nov, [facility] [address] [id number] [address] [place] [address], [place] [address] Nov, [facility] [address] [id number] [address] [place] [address], [place] [address] Nov, [facility] [address] [id number] [address] [place] [address], [place] [address] Nov, [facility] [address] [id number] [address] [place] [address], [place] [address] Nov, [facility] [address] [id number] [address] [place] [address], [place] [address] Nov, [facility] [address] [id number] [address] [place] [address], [place] [address] Sep, [facility] [address] [id number] [address] [place] [address], [place] [address] Sep, [facility] [address] [id number] [address] [place] [address], [place] [address] Sep, [facility] [address] [id number] [address] [place] [address], [place] [address] Sep, [facility] [address] [id number] [address] [place] [address], [place] [address] Aug, [facility] [address] [id number] [address] [place] [address], [place] [address] Aug, [facility] [address] [id number] [address] [place] [address], [place] [address] Jul, [facility] [address] [id number] [address] [place] [address], [place] [address] Jul, [facility] [address] [id number] [address] [place] [address], [place] [address] Jun, [facility] [address] [id number] [address] [place] [address], [place] [address] Jun, [facility] [address] [id number] [address] [place] [address], [place] [address] Jun, [facility] [address] [id number] [address] [place] [address], [place] [address] Jun, [facility] [address] [id number] [address] [place] [address], [place] [address] May, [facility] [address] [id number] [address] [place] [address], [place] [address] May, [facility] [address] [id number] [address] [place] [address], [place] [address] May, [facility] [address] [id number] [address] [place] [address], [place] [address] May, [facility] [address] [id number] [address] [place] [address], [place] [address] May, [facility] [address] [id number] [address] [place] [address], [place] [address] May, [facility] [address] [id number] [address] [place] [address], [place] [address] Apr, [facility] [address] [id number] [address] [place] [address], [place] [address] Apr, [facility] [address] [id number] [address] [place] [address], [place] [address] Apr, [facility] [address] [id number] [address] [place] [address], [place] [address] Apr, [facility] [address] [id number] [address] [place] [address], [place] [address] Mar, [facility] [address] [id number] [address] [place] [address] Mar, [facility] [address] [id number] [address] [place] [address], [place] [address] Mar, [facility] [address] [id number] [address] [place] [address], [place] [address] Mar, [facility] [address] [id number] [address] [place] [address], [place] [address] Feb, [facility] [address] [id number] [place] [id number] Jan, [facility] [address] [id number] [address] [place] [address] Jan, [facility] [address] [id number] [address] [place] [address] Dec, [facility] [address] [id number] [address] [place] [address] Dec, [facility] [address] [id number] [address] [place] [address] Dec, [facility] [address] [id number] [place] [id number] Dec, [facility] [address] [id number] [address] [place] [address] Nov, [facility] [address] [id number] [address] [place] [phone] Nov, [facility] [address] [id number] [address] [place] [phone] Nov, [facility] [address] [id number] [address] [place] [phone] Nov, [facility] [address] [id number] [address] [place] [phone] Nov, [facility] [address] [id number] [address] [place] [phone] October, [facility] [address] [id number] [address] [place] [phone] October, [facility] [address] [id number] [address] [place] [phone] Aug, [facility] [address] [id number] [address] [place] [phone] Nov, IMMUNIZATIONS No Known Immunizations SOCIAL HISTORY [...] [place]se ver[place] Surgical History EGD- Esophagus stretching- 2014 Surgical History gastric sleeve 03/2016 Surgical History RT wrist 03/2019 Surgical History RT wrist plated 04/2019 Hospitalization History gastric sleeve Hospitalization History [facility] ER Trouble with left shoulder blade 08/2017
--- OUTSIDE RECORDS SUMMARY | 2019-11-29 08:58 | XMS REPORT ---
Author Author Curt DIAZ [facility] Address [address] [place] [address] Care Team Providers Care Operator Specialist Communications Name Role Phone CHRIS DIAZ Unavailable PROBLEMS Type Condition ICD9-CM Code CPK18-PZ Code Onset Dates Condition S tatus SNOMED Code Problem Edema R60.9 Active 348100696 Problem Morbid obesity E66.01 Active 58404 6002 Problem Metabolic syndrome E88.81 Active 2 37141578 Problem Renal insufficiency N28.9 Active 782941476 Problem Vitamin D deficiency E55.9 Active 27796604 Problem Severe episode of recurrent major depressive disorder, without psychotic features F33.2 Active 79132614 Problem DANIELA (generalized anxiety disorder) F41.1 Active 69895531 Problem Mixed obsessional thoughts and acts F42.2 Active 50448733 Problem Chronic fatigue R53.82 Active 8422 9001 Problem Other chronic pain G89.29 Active 8 9821872 Problem Borderline personality disorder F60.3 Active 87780972 Problem Attachment disorder F94.1 Active Problem Sciatica, right side M54.31 Active 693482815243508 Problem Insomnia G47.00 Active 203952875 Problem Anxiety F41.9 Active 97606387 Problem BMI 45.0-49.9, adult Z68.42 Active 815162600 Problem Hyperlipemia E78.5 Active 0837450 4 Problem Benign essential hypertension I10 Active 1166280 Problem Callous ulcer, limited to breakdown of skin L98.49 1 Active Problem Hammer toe of right foot M20.41 Activ e 070366025 Problem Hammer toe of second toe of right foot M20.41 Active 290842763 Problem Falling episodes R29.6 Active 161 360038 ALLERGIES No Information ENCOUNTERS Encounter Location Date Diagnosis [facility], [place] [address] [facility] [id number] [address] [address] Dec, [facility], [place] [address] [place] [id number] [address] [place] [phone] Dec, [facility] [address] [id number] [id number] Dec, [facility], [place] [address] [facility] [id number] [address] [place] [phone] Dec, [facility], [place] [address] [facility] [id number] [address] [place] [phone] Nov, [facility], [place] [address] [facility] [id number] [address] [place] [phone] Nov, [facility], [place] [address] [facility] [id number] [address] [place] [phone] October, [facility], [place] [address] [facility] [id number] [address] [place] [phone] October, [facility], [place] [address] [facility] [id number] [address] [place] [phone] October, [facility], [place] [address] [facility] [id number] [address] [place] [phone] Sep, [facility], [place] [address] [facility] [id number] [address] [place] [phone] Sep, DANIELA (generalized anxiety dis order) F41.1 ; Severe episode of recurrent major depressive disorder, without psychotic features F33.2 ; Mixed obsessional thoughts and acts F42.2 and Borderline personality disorder F60.3 [facility] [address] [place] [address] [facility] [id number] [place] [address] Sep, Severe episode of recurrent major depres sive disorder, without psychotic features F33.2 [facility] [place] [address] [id number][place] [id number] Sep, [facility] [address] [id number][place] [id number] Sep, [facility] [address] [id number][place] [id number] Sep, Benign essential hypertension I10 [facility], [place] [address] [facility] [id number] [address] [place] [phone] 08 Sep, 2019 [facility], [place] [address] [facility] [id number] [address] [place] [phone] Sep, [facility], [place] [address] [facility] [id number] [address] [place] [phone] Sep, [facility], [place] [address] [facility] [id number] [address] [place] [phone] Sep, DANIELA (generalized anxiety dis order) F41.1 ; Severe episode of recurrent major depressive disorder, without psychotic features F33.2 ; Mixed obsessional thoughts and acts F42.2 and Borderline personality disorder F60.[address] [id number][place] [id number] Aug, [facility], [place] [address] [facility] [id number] [address] [place] [phone] Aug, [place] [id number] [place] [id number] Aug, [facility], [place] [address] [facility] [id number] [address] [place] [phone] Aug, [id number] [place] [address] [id number] Aug, Dizzy R42 ; Weight gain R63.5 ; Benign e ssential hypertension I10 ; Falling episodes R29.6 and History of gastric bypass Z98.84 [facility], [place] [address] [facility] [id number] [address] [place] [phone] 14 Aug, 2019 [facility], [place] [address] [facility] [id number] [address] [place] [phone] 13 Aug, 2019 [facility] [place] [address] [facility] [id number] [address] [place] [phone] 11 Aug, 2019 DANIELA (generalized anxiety dis order) F41.1 ; Severe episode of recurrent major depressive disorder, without psychotic features F33.2 ; Mixed obsessional thoughts and acts F42.2 and Borderline personality disorder F60.3 [facility] [address] [id number][place] [id number] Aug, [facility] [address] [id number], [place] [id number] Aug, [facility], [place] [address] [facility] [id number] [address] [place], [place] [phone] Aug, [facility] [address] [id number], [place] [id number] Aug, [facility] [address] [id number], [place] [id number] Aug, [facility], [place] [address] [facility] [id number] [address] [place] [phone] Aug, [facility] [address] [facility] [address] [id number][place] [id number] Aug, Severe episode of recurrent major depres sive disorder, without psychotic features F33.2 ; Borderline personality disorder F60.3 ; Anxiety F41.9 and Attachment disorder F94.1 [facility], [place] [address] [place] [id number] [address] [place] [phone] Jul, [facility], [place] [address] [facility] [id number] [address] [place] [phone] Jul, DANIELA (generalized anxiety dis order) F41.1 ; Severe episode of recurrent major depressive disorder, without psychotic features F33.2 ; Mixed obsessional thoughts and acts F42.2 and Borderline personality disorder F60.3 [facility] [address] [facility] [address] [id number][place] [id number] Jul, [facility], [place] [address] [facility] [id number] [address] [place] [phone] Jul, [facility], [place] [address] [facility] [id number] [address] [place] [phone] Jul, [facility], [place] [address] [place] [id number] [address] [place], [place] [phone] Jul, [facility], [place] [address] [facility] [id number] [address] [place] [phone] Jul, [facility], [place] [address] [facility] [id number] [address] [place] [phone] Jun, DANIELA (generalized anxiety dis order) F41.1 ; Severe episode of recurrent major depressive disorder, without psychotic features F33.2 ; Mixed obsessional thoughts and acts F42.2 and Borderline personality disorder F60.[id number] [place] [id number] Jun, [id number] [place] [address] [id number] Jun, [place] [address] [facility] [id number] [address] [place] [phone] Jun, [place] [address] [facility] [id number] [address] [place] [phone] Jun, DANIELA (generalized anxiety dis order) F41.1 ; Severe episode of recurrent major depressive disorder, without psychotic features F33.2 ; Mixed obsessional thoughts and acts F42.2 and Borderline personality disorder F60.[id number] [place] [id number] Jun, [id number] [place] [id number] Jun, [id number] [place] [id number] Jun, [address] [id number] [place] [address] [id number] Jun, Benign essential hypertension I10 ; Morb id obesity E66.01 ; Severe episode of recurrent major depressive disorder, without psychotic features F33.2 ; Excess skin L98.7 and Hyperlipemia E78.5 [place] [address] [facility] [id number] [address] [place] [phone] Jun, [facility], [place] [address] [facility] [id number] [address] [place] [phone] May, [facility], [place] [address] [facility] [id number] [address] [place] [phone] May, Severe episode of recurrent major depressive disorder, without psychotic features F33.2 ; Mixed obsessional thoughts and acts F42.2 ; DANIELA (generalized anxiety disorder) F41.1 and Borderline personality disorder F60.3 [facility], [place] [address] [facility] [id number] [address] [place] [phone] 15 May, 2019 [facility], [place] [address] [facility] [id number] [address] [place] [phone] May, DANIELA (generalized anxiety dis order) F41.1 ; Severe episode of recurrent major depressive disorder, without psychotic features F33.2 ; Mixed obsessional thoughts and acts F42.2 and Borderline personality disorder F60.3 [facility], [place] [address] [facility] [id number] [address] [place] [phone] May, [facility], [place] [address] [facility] [id number] [address] [place] [phone] May, [facility], [place] [address] [facility] [id number] [address] [place] [phone] May, Severe episode of recurrent major depressive disorder, without psychotic features F33.2 ; Mixed obsessional thoughts and acts F42.2 ; Borderline personality disorder F60.3 and DANIELA (generalized anxiety disorder) F41.1 [facility] [address] [facility] [id number] [address] [place] [address] [id number] May, Caries K02.9 [facility] [place] [address] [id number][place] [id number] May, Benign essential hypertension I10 [facility] [place] [address] [id number], [place] [id number] Apr, [facility] [address] [id number], [place] [id number] Apr, Benign essential hypertension I10 [place] [address] [facility] [id number] [address] [place] [phone] Apr, Borderline personality disor romero F60.3 ; DNAIELA (generalized anxiety disorder) F41.1 ; Mixed obsessional thoughts and acts F42.2 and Severe episode of recurrent major depressive disorder, without psychotic features F33.2 [facility] [address] [id number], [place] [id number] Apr, [facility] [address] [id number], [place] [id number] Apr, Benign essential hypertension I10 [facility], [place] [address] [facility] [id number] [address] [place] [phone] Apr, Severe episode of recurrent major depressive disorder, without psychotic features F33.2 ; DANIELA (generalized anxiety disorder) F41.1 ; Borderline personality disorder F60.3 and Mixed obsessional thoughts and acts F42.2 [facility] [address] [id number] [address] [place] [address] [id number] Apr, Dental examination Z01.20 [facility] [address] [id number] [address] [place] [address] [id number] Apr, Caries K02.9 and Dental exam ination Z01.20 [facility], [place] [address] [facility] [id number] [address] [place] [phone] Apr, DANIELA (generalized anxiety dis order) F41.1 ; Severe episode of recurrent major depressive disorder, without psychotic features F33.2 ; Mixed obsessional thoughts and acts F42.2 and Borderline personality disorder F60.3 [facility], [place] [address] [facility] [id number] [address] [place] [phone] Mar, Severe episode of recurrent major depressive disorder, without psychotic features F33.2 ; Mixed obsessional thoughts and acts F42.2 ; Borderline personality disorder F60.3 and DANIELA (generalized anxiety disorder) F41.1 [facility], [place] [address] [facility] [id number] [address] [place] [phone] Mar, Severe episode of recurrent major depressive disorder, without psychotic features F33.2 ; Mixed obsessional thoughts and acts F42.2 ; DANIELA (generalized anxiety disorder) F41.1 and Borderline personality disorder F60.3 [facility] [address] [id number] [address] [place] [address] [id number] Mar, Dental examination Z01.20 an d Caries K02.[address] [id number], [place] [id number] Mar, Benign essential hypertension I10 and Fa lling episodes R29.6 [facility], [place] [address] [id number] [address] [place] [phone] Mar, [facility] [place] [address] [facility] [id number] [address] [place] [phone] Mar, Severe episode of recurrent major depressive disorder, without psychotic features F33.2 ; Mixed obsessional thoughts and acts F42.2 ; Borderline personality disorder F60.3 and DANIELA (generalized anxiety disorder) F41.1 [facility] [place] [address] [facility] [id number] [address] [place] [phone] Mar, [facility], [place] [address] [id number] [address] [place] [phone] Mar, [address] [id number] [place] [address] [id number] Mar, [facility], [place] [address] [facility] [id number] [address] [place] [phone] Mar, Severe episode of recurrent major depressive disorder, without psychotic features F33.2 ; Mixed obsessional thoughts and acts F42.2 ; Borderline personality disorder F60.3 and DANIELA (generalized anxiety disorder) F41.1 [facility] [place] [address] [id number] [address] [place] [phone] Mar, [facility] [address] [id number] [address] [place] [address] [id number] Feb, Dental examination Z01.20 an d Periodontitis K05.30 [facility], [place] [address] [facility] [id number] [address] [place] [phone] Feb, DANIELA (generalized anxiety dis order) F41.1 ; Severe episode of recurrent major depressive disorder, without psychotic features F33.2 ; Mixed obsessional thoughts and acts F42.2 and Borderline personality disorder F60.3 [facility] [address] [id number][place] [id number] 30 Feb, 2019 Acute pain of right knee M25.561 ; Fall, initial encounter W19.XXXA ; Benign essential hypertension I10 and Edema R60.9 [facility], [place] [address] [id number] [address] [place] [phone] Feb, [facility], [place] [address] [id number] [address] [place] [phone] Feb, DANIELA (generalized anxiety dis order) F41.1 ; Severe episode of recurrent major depressive disorder, without psychotic features F33.2 ; Mixed obsessional thoughts and acts F42.2 and Borderline personality disorder F60.3 [facility] [place] [address] [facility] [id number] [address] [place] [phone] Feb, [facility], [place] [address] [id number] [address] [place] [phone] Jan, [facility] [place] [address] [facility] [id number] [address] [place] [phone] Jan, [facility], [place] [address] [facility] [id number] [address] [place] [phone] Jan, [id number] [place] [address] [id number] Jan, Callus of heel L84 ; Fissure in skin R23 .4 and Hammer toe of second toe of right foot M20.41 [facility] [address] [id number], [place] [id number] Jan, [facility], [place] [address] [id number] [address] [place] [phone] Jan, [facility], [place] [address] [facility] [id number] [address] [place] [phone] Jan, [facility], [place] [address] [facility] [id number] [address] [place] [phone] Jan, Severe episode of recurrent major depressive disorder, without psychotic features F33.2 ; DANIELA (generalized anxiety disorder) F41.1 ; Mixed obsessional thoughts and acts F42.2 and Borderline personality disorder F60.3 [facility] [place] [address] [facility] [id number] [address] [place] [phone] Jan, [facility] [address] [id number], [place] [id number] Jan, Benign essential hypertension I10 [place] [id number] [place] [address] [id number] Dec, Callous ulcer, limited to breakdown of s kin L98.491 and Morbid obesity E66.01 [facility] [place] [address] [place] [id number] [address] [place] [phone] Dec, [facility] [place] [address] [facility] [id number] [address] [place] [phone] Dec, [facility] [place] [address] [facility] [id number] [address] [place] [phone] Dec, [facility] [place] [address] [facility] [id number] [address] [place] [phone] Dec, [facility] [place] [address] [place] [id number] [address] [place] [phone] Dec, Severe episode of recurrent major depressive disorder, without psychotic features F33.2 [facility] [place] [address] [facility] [id number] [address] [place] [phone] Dec, DANIELA (generalized anxiety dis order) F41.1 ; Severe episode of recurrent major depressive disorder, without psychotic features F33.2 ; Mixed obsessional thoughts and acts F42.2 and 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 [facility] [address] [id number], [place] [id number] Dec, Morbid obesity E66.01 [facility] [place] [address] [facility] [id number] [address] [place] [phone] Dec, [facility] [place] [address] [facility] [id number] [address] [place] [phone] Dec, [facility] JENNY [address] [address] [id number] [place] [address] Nov, [facility] [address] [address] [id number], [place] [id number] Nov, [facility] [place] [address] [facility] [id number] [address] [place] [phone] Nov, [facility] [place] [address] [facility] [id number] [address] [place] [phone] Nov, [facility] [place] [address] [facility] [id number] [address] [place] [phone] Nov, DANIELA (generalized anxiety dis order) F41.1 ; Severe episode of recurrent major depressive disorder, without psychotic features F33.2 ; Mixed obsessional thoughts and acts F42.2 and 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 [facility] [address] [id number], [place] [id number] Nov, Morbid obesity E66.01 [facility] [place] [address] [facility] [id number] [address] [place] [phone] Nov, [facility] [place] [address] [facility] [id number] [address] [place] [phone] Nov, DANIELA (generalized anxiety dis order) F41.1 ; Mixed obsessional thoughts and acts F42.2 ; Severe episode of recurrent major depressive disorder, without psychotic features F33.2 and 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 [facility] [address] [id number], [place] [id number] October, Morbid obesity E66.01 [facility] [address] [address] [id number], [place] [id number] October, Benign essential hypertension I10 and Mo rbid obesity E66.01 [facility] [address] [facility] [address] [id number], [place] [id number] October, [facility] [place] [address] [facility] [id number] [address] [place] [phone] October, Severe episode of recurrent major depressive disorder, without psychotic features F33.2 [facility] [address] [id number], [place] [id number] October, Morbid obesity E66.01 [facility] [address] [id number], [place] [id number] October, [facility] [place] [address] [facility] [id number] [address] [place] [id number] October, Severe episode of recurrent major depressive disorder, without psychotic features F33.2 ; DANIELA (generalized anxiety disorder) F41.1 ; Mixed obsessional thoughts and acts F42.2 and 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 [id number][place] [id number] October, Morbid obesity E66.01 [facility] [address] [facility] [id number] [address] [place] [id number] Sep, Dental examination Z01.20 [facility] [address] [place] [address] AVE [id number] [id number] Sep, [facility] [address] [place] [place] [id number] [address] [place] [phone] Sep, Sore in mouth K13.79 and Mor bid obesity E66.01 [facility], [place] [address] [facility] [id number] [address] [place] [phone] Sep, Dental examination Z01.20 [facility], [place] [address] [place] [id number] [address] [place] [phone] Sep, Anxiety disorder, unspecifie d F41.[address] [id number][place] [id number] Sep, Mouth ulcer K12.[address] [id number][place] [id number] Sep, Morbid obesity E66.01 [facility] [address] [place] [address] AVE [id number][place] [id number] Sep, Allergic rhinitis, unspecified seasonali ty, unspecified trigger J30.9 and Shortness of breath R06.02 [facility] [id number][place] [id number] Sep, 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 [facility] [id number], [place] [id number] Aug, Mouth abscess K12.2 ; Mouth ulcer K12.1 ; Bloating R14.0 and Morbid obesity E66.01 [facility] [address] [id number], [place] [id number] Aug, [facility] [address] [id number][place] [id number] Aug, [facility] [id number], [place] [id number] Jul, Major depressive disorder, recurrent, mo derate F33.1 ; Abscess of arm, left L02.414 ; BMI 45.0-49.9, adult Z68.42 and Morbid obesity E66.01 [facility] [id number], [place] [id number] Jul, [facility] [address] [id number], [place] [id number] Jul, [facility]PITALNext Level Security SystemsBROWNLEE[address] [id number], [place] [id number] Jun, Pain in right knee M25.561 and Other chr onic pain G89.29 [facility] [id number], [place] [id number] Jun, Benign essential hypertension I10 ; BMI 45.0-49.9, adult Z68.42 ; Morbid obesity E66.01 ; Vitamin D deficiency E55.9 ; Insomnia G47.00 ; 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 ; Edema R60.9 ; Recurrent major depressive disorder, in partial remission F33.41 ; Chronic fatigue R53.82 ; Acute pain of right knee M25.561 ; Metabolic syndrome E88.81 and Irritable mood R45.4 [facility] [place] [address] [facility] [id number] [address] [place] [phone] 16 Jun, 2018 [facility] [id number], [place] [id number] Jun, Irritable mood R45.4 [facility] [place] [address] [facility] [id number] [address] [place] [phone] May, [facility] [place] [address] [facility] [id number] [address] [place] [phone] May, [facility] [place] [address] [facility] [id number] [address] [place] [phone] May, Recurrent major depressive d isorder, in partial remission F33.41 ; Mixed obsessional thoughts and acts F42.2 ; 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 and BMI 45.0-49.9, adult Z68.42 [facility] [place] [address] [facility] [id number] [address] [place] [phone] 27 Apr, 2018 [facility] [place] [address] [facility] [id number] [address] [place] [phone] 16 Apr, 2018 [facility] [place] [address] [facility] [id number] [address] [place] [phone] 14 Apr, 2018 [facility] [place] [address] [facility] [id number] [address] [place] [phone] Apr, [facility] [place] [address] [facility] [id number] [address] [place] [phone] Mar, Mixed obsessional thoughts a nd acts F42.2 ; Recurrent major depressive disorder, in partial remission F33.41 ; DANIELA (generalized anxiety disorder) F41.1 and BMI 45.0-49.9, adult Z68.42 [facility] [address] [id number], [place] [id number] Mar, [facility] [address] [id number], [place] [id number] Mar, BMI 45.0-49.9, adult Z68.42 ; Instabilit y of right knee joint M25.361 and Rash R21 [facility] [place] [address] [facility] [id number] [address] [place] [phone] Jan, Recurrent major depressive d isorder, in partial remission F33.41 ; Mixed obsessional thoughts and acts F42.2 and BMI 45.0-49.9, adult Z68.42 [facility] [address] [id number], [place] [id number] Jan, [facility] [address] [id number], [place] [id number] Jan, Benign essential hypertension I10 ; BMI 45.0-49.9, adult Z68.42 ; Metabolic syndrome E88.81 and Allergic rhinitis, unspecified seasonality, unspecified trigger J30.9 [facility] [place] [address] [facility] [id number] [address] [place] [phone] Dec, DANIELA (generalized anxiety dis order) F41.1 and Depressive disorder, not elsewhere classified F32.9 [facility] [address] [id number], [place] [id number] Dec, Recurrent major depressive disorder, in partial remission F33.41 [facility] [address] [id number], [place] [id number] Dec, [facility] [address] [id number], [place] [id number] Nov, [facility] [address] [id number], [place] [id number] Nov, Recurrent major depressive disorder, in partial remission F33.41 [facility] [place] [address] [facility] [id number] [address] [place] [phone] Nov, Recurrent major depressive d isorder, in partial remission F33.41 ; Mixed obsessional thoughts and acts F42.2 ; DANIELA (generalized anxiety disorder) F41.1 and BMI 45.0-49.9, adult Z68.42 [facility] [address] [id number], [place] [id number] Nov, [facility] [address] [id number], [place] [id number] Nov, Other conjunctivitis of both eyes H10.89 and Sciatica, right side M54.[address] [facility] [address] [id number], [place] [id number] Nov, [facility] [address] [id number], [place] [id number] Nov, [facility] [address] [id number], [place] [id number] October, [facility] [address] [id number], [place] [id number] October, [facility]ITALApertus Pharmaceuticals [facility] [address] [facility] [id number] [address] [place] [phone] October, BMI 45.0-49.9, adult Z68.42 ; Mixed obsessional thoughts and acts F42.2 ; Recurrent major depressive disorder, in partial remission F33.41 and DANIELA (generalized anxiety disorder) F41.1 [facility] [address] [id number], [place] [id number] October, Benign essential hypertension I10 ; Morb id obesity E66.01 and BMI 45.0-49.9, adult Z68.42 [facility] [address] [id number], [place] [id number] Sep, [facility] [address] [id number], [place] [id number] Sep, [facility] [address] [id number], [place] [id number] Sep, [facility] [id number] [place] [address] [id number] Sep, Hospital discharge follow-up Z09 ; Aller gic rhinitis, unspecified seasonality, unspecified trigger J30.9 and Shortness of breath R06.[address] [id number] [place] [address] [id number] 10 Sep, 2017 Recurrent major depressive disorder, in partial remission F33.[address] [id number] [place] [address] [id number] 15 Aug, 2017 Irritable mood R45.4 [place] [address] [place] [id number] [address] [place] [phone] Aug, [address] [id number] [place] [address] [id number] Jul, Benign essential hypertension I10 ; Robert a R60.9 and Impacted cerumen of left ear H61.22 [place] [id number] [place] [phone] 14 Jul, 2017 Major depression F32.9 ; Rec urrent major depressive disorder, in partial remission F33.41 and Anxiety F41.9 [place] [id number] [address] [place] [phone] Jun, Major depression F32.9 ; Rec urrent major depressive disorder, in partial remission F33.41 and Anxiety F41.[address] [id number], [place] [id number] Jun, Major depression F32.9 ; Morbid obesity E66.01 ; Irritable mood R45.4 ; Hand weakness R29.898 and Vitamin D deficiency E55.[address] [id number], [place] [id number] Jun, [address] [id number] [place] [address] [id number] May, Major depression F32.9 [place] [address] [place] [id number] [address] [place] [phone] May, Major depression F32.9 [facility] [address] [id number], [place] [id number] May, BMI 50.0-59.9, adult Z68.43 ; Major depr ession F32.9 ; Anxiety F41.9 ; Hypertrophic toenail L60.2 and Pain of left great toe M79.675 [facility] [id number] [place] [address] [id number] May, Recurrent major depressive disorder, in partial remission F33.41 [facility] [place] [address] [facility] [id number] [address] [place] [phone] Apr, [facility] [id number] [place] [address] [id number] Apr, [facility] [place] [address] [place] [id number] [address] [place] [phone] Apr, Major depression F32.9 [facility] [id number] [place] [address] [id number] Apr, Severe episode of recurrent major depres sive disorder, without psychotic features F33.2 ; Anxiety F41.9 and Insomnia G47.00 [facility] [address] [id number], [place] [id number] Apr, [facility] [place] [address] [facility] [id number] [address] [place] [phone] Apr, [facility] [address] [id number], [place] [id number] Apr, [facility] [address] [id number], [place] [id number] Mar, [facility] [id number] [place] [address] [id number] Mar, Allergic conjunctivitis of both eyes H10 .13 [facility] [place] [address] [facility] [id number] [address] [place] [phone] Mar, Major depression F32.9 [facility] [address] [id number], [place] [id number] Mar, Metabolic syndrome E88.81 ; History of g astric bypass Z98.890 ; Benign essential hypertension I10 ; Allergic conjunctivitis of both eyes H10.13 and Morbid obesity E66.01 [place] [address] [place] [phone] Mar, Major depression F32.9 [facility] [address] [id number], [place] [id number] Feb, [place] [address] [place] [id number] [address] [place] [phone] Feb, Major depression F32.[id number] [place] [address] [id number] Feb, Subacute maxillary sinusitis J01.00 and Bronchitis J40 [place] [address] [place] [phone] Feb, Major depressive disorder, r ecurrent, moderate F33.1 [place] [address] [facility] [id number] [place] [address] [id number] Jan, [address] [id number] [place] [address] [id number] Jan, Acute non-recurrent maxillary sinusitis J01.00 and Skin tag L91.8 [place] [address] [facility] [address] [id number], [place] [id number] Jan, Cough R05 and Sinus congestion R09.81 [facility] [address] [facility] [address] [id number], [place] [id number] Jan, [address] [id number] [place] [address] [id number] Jan, Benign essential hypertension I10 ; Hist ory of gastric bypass Z98.890 and Nausea and vomiting in adult R11.2 [place] [address] [place] [phone] Jan, Major depressive disorder, r ecurrent, moderate F33.1 [place] [address] [place] [id number] [address] [place] [phone] Dec, Insomnia G47.00 ; Recurrent major depressive disorder, in partial remission F33.41 and Morbid obesity E66.01 [facility] [address] [place] [address] AV [id number], [place] [id number] Dec, [id number] [place] [address] [id number] Dec, Chronic bacterial conjunctivitis of left eye H10.402 [place] [id number] [place] [address] [id number] Nov, [address] [id number] [place] [address] [id number] Nov, Dental examination Z01.[id number] [place] [address] [id number] Nov, Benign essential hypertension I10 ; Hist ory of gastric bypass Z98.890 and Nausea and vomiting in adult R11.2 [place] [id number] [address] [place] [phone] Nov, Major depressive disorder, r ecurrent, moderate F33.1 ; Generalized anxiety disorder F41.1 and Insomnia due to other mental disorder F51.05 [place] [id number] [address] [place] [phone] Nov, Recurrent major depressive d isorder, in partial remission F33.41 ; Insomnia G47.00 and Morbid obesity E66.01 [facility] [address] [id number] Kiesha ESCOBEDO S [id number] October, Abscess of left arm L02.414 [place] [address] [place] [id number] [address] [place] [phone] October, Morbid obesity E66.01 ; Lida r depression F32.9 and Recurrent major depressive disorder, in partial remission F33.[address] [id number], [place] [id number] Sep, Benign essential hypertension I10 ; Morb id obesity E66.01 ; S/P gastric bypass Z98.84 ; Abscess L02.91 and Chronic bacterial conjunctivitis of left eye H10.[address] [id number], [place] [id number] Sep, Dental examination Z01.20 [place] [address] [place] [id number] [address] [place] [phone] Sep, Morbid obesity E66.01 ; Lida r depression F32.9 and Recurrent major depressive disorder, in partial remission F33.41 [place] [address] [place] [id number] [address] [place] [phone] Jul, [place] [address] [phone] Jul, Major depressive disorder, r ecurrent, moderate F33.1 [place] [address] [place] [id number] [address] [place] [phone] Jul, Major depressive disorder, r ecurrent, moderate F33.1 and Generalized anxiety disorder F41.[address] [id number], [place] [id number] Jul, Cough R05 [place] [address] [place] [id number] [address] [place] [phone] Jul, Morbid obesity E66.01 ; Lida r depression F32.9 and Recurrent major depressive disorder, in partial remission F33.[address] [id number], [place] [id number] Jul, [address] [id number], [place] [id number] Jul, [address] [id number], [place] [id number] 06 Feb, 2017 Gastroenteritis K52.9 and Cough R[address] [place] [address] [id number], [place] [id number] Jun, Acute bacterial conjunctivitis of left e ye H10.32 [place] [address] [facility] [id number] [address] [place] [phone] Jun, [place] [address] [facility] [id number] [address] [place] [phone] Jun, Recurrent major depressive d isorder, in partial remission F33.41 [place] [address] [facility] [id number] [address] [place] [phone] May, Major depression F32.9 and M orbid obesity E66.01 [place] [address] [facility] [id number] [address] [place] [phone] May, [address] [id number] [place] [address] [id number] May, Thrush B37.0 [place] [address] [facility] [id number] [address] [place] [phone] Apr, Major depressive disorder, r ecurrent, moderate F33.1 [place] [address] [facility] [id number] [address] [place] [phone] Apr, Insomnia G47.00 ; Major depr ession F32.9 and Recurrent major depressive disorder, in partial remission F33.41 [place] [address] [facility] [id number] [address] [place] [phone] Apr, [place] [address] [facility] [id number] [address] [place] [phone] 02 Apr, 2016 Major depression F32.9 and R ecurrent major depressive disorder, in partial remission F33.[address] [place] [id number] [place] [address] [id number] Mar, Benign essential hypertension I10 ; Morb id obesity E66.01 ; Impacted cerumen of both ears H61.23 ; Laceration of finger of right hand, initial encounter S61.219A and Encounter for immunization Z23 [facility] [place] [address] [facility] [id number] [address] [place] [phone] Mar, [facility] [place] [address] [facility] [id number] [address] [place] [phone] Mar, [facility] [place] [address] [facility] [id number] [address] [place] [phone] Mar, [facility] [address] [id number], [place] [id number] Feb, Nausea R11.0 ; Blood in the stool K92.1 and Benign essential hypertension I10 [facility] [place] [address] [facility] [id number] [address] [place] [phone] Feb, Major depression F32.9 and R ecurrent major depressive disorder, in partial remission F33.41 [facility] [address] [id number], [place] [id number] Feb, [facility] [address] [id number], [place] [id number] Feb, Recurrent major depressive disorder, in partial remission F33.41 [facility] [address] [id number], [place] [id number] Jan, [facility] [address] [id number], [place] [id number] Jan, Benign essential hypertension I10 ; Robert a R60.9 and Hyperlipidemia, unspecified hyperlipidemia type E78.5 [facility] [address] [id number], [place] [id number] Jan, Recurrent major depressive disorder, in partial remission F33.41 [facility] [address] [id number] Kiesha ESCOBEDO S [id number] Jan, [facility] [address] [id number], [place] [id number] Jan, [facility] [address] [id number], [place] [id number] Jan, [facility] [place] [address] [facility] [id number] [address] [place] [phone] Jan, [facility] [place] [address] [facility] [id number] [address] [place] [phone] Dec, [facility] [place] [address] [facility] [id number] [address] [place] [phone] Nov, [facility] [place] [address] [facility] [id number] [address] [place] [phone] Nov, Major depression F32.9 [facility] [place] [address] [facility] [id number] [address] [place] [phone] Nov, [facility] [place] [address] [facility] [id number] [address] [place] [phone] Nov, [facility] [place] [address] [place] [id number] [address] [place] [phone] Nov, Major depressive disorder, r ecurrent episode, mild F33.0 and Anxiety F41.[address] [place] [id number] [place] [address] [id number] Nov, [place] [id number] [place] [address] [id number] October, Left elbow pain M25.522 and Other season al allergic rhinitis J30.[address] [id number] [place] [address] [id number] October, [facility] [place] [address] [facility] [id number] [address] [place] [phone] October, Major depressive disorder, r ecurrent, moderate F33.1 [facility] [place] [address] [facility] [id number] [address] [place] [phone] October, Major depression F32.9 [facility] [place] [address] [facility] [id number] [address] [place] [phone] Sep, [place] or callus L84 and Onych omycosis B35.1 [facility] [place] [address] [facility] [id number] [address] [place] [phone] Sep, Major depressive disorder, r ecurrent, moderate F33.1 [facility] [place] [address] [facility] [id number] [address] [place] [phone] Sep, Major depression F32.9 [facility] [place] [address] [facility] [id number] [address] [place] [phone] Sep, Moderate episode of recurren t major depressive disorder F33.[address] [place] [address] [id number], [place] [id number] Sep, Muscle strain T14.8 [facility] [place] [address] [facility] [id number] [address] [place] [phone] Aug, Major depression F32.9 [place] [address] [facility] [id number] [address] [place] [phone] Aug, Major depression F32.9 [facility] [place] [address] [facility] [id number] [address] [place] [phone] Jul, Morbid obesity E66.01 and Ma cora depression F32.9 [facility] [place] [address] [facility] [id number] [address] [place] [phone] 24 Jul, 2015 Depression, major, recurrent , moderate F33.[address] [place] [address] [id number] [id number] Jul, [facility], [place] [address] [facility] [id number] [address] [place] [id number] Jul, [facility], [place] [address] [facility] [id number] [address] [place] [phone] Jul, Major depression F32.9 and M orbid obesity E66.[address] [place] [id number] [id number] 11 Jul, 2015 Type II diabetes mellitus E11.9 ; Callus of foot L84 ; Benign essential hypertension I10 and Renal insufficiency N28.9 [facility], [place] [address] [facility] [id number] [address] [place] [phone] 09 Jul, 2015 Depression, major, recurrent , moderate F33.1 [place] [address] [facility] [id number] [address] [place] [phone] Jul, Major depression F32.9 [facility], [place] [address] [facility] [id number] [address] [place] [id number] Jul, [facility], [place] [address] [facility] [id number] [address] [place] [phone] Jun, Major depression F32.9 [place] [address] [facility] [id number] [address] [place] [phone] Jun, Major depressive disorder, r ecurrent, moderate F33.1 [place] [address] [place] [id number] [address] [place] [phone] Jun, [place] [address] [place] [id number] [address] [place] [phone] Jun, Major depressive disorder, r ecurrent, moderate F33.1 and Major depression F32.[address] [place] [place] [id number] [place] [id number] Jun, Type II diabetes mellitus E11.9 [place] [address] [place] [id number] [address] [place] [phone] Jun, Depression, major, recurrent , moderate F33.1 [place] [address] [facility] [id number] [address] [place] [phone] May, Major depressive disorder, r ecurrent, moderate F33.1 [place] [address] [facility] [id number] [address] [place] [phone] May, [facility] [id number] [place] [id number] May, Edema R60.9 [place] [address] [facility] [id number] [address] [place] [phone] May, Insomnia G47.00 and Major de pression F32.9 [facility] [address] [id number] [id number] May, Morbid obesity E66.01 ; Edema R60.9 ; Sh ortness of breath R06.02 ; Benign essential hypertension I10 and Renal insufficiency N28.[address] [id number] [place] [address] [id number] May, Hyperlipemia 272.4 and Renal insufficien cy N28.9 [facility] [place] [address] [facility] [id number] [address] [place] [phone] Apr, Major depression F32.9 [facility] [place] [address] [facility] [id number] [address] [place] [address] Apr, [facility] [place] [address] [facility] [id number] [address] [place] [address] Apr, Major depressive disorder, r ecurrent, moderate F33.[address] [id number] [place] [address] [id number] Apr, Type II diabetes mellitus E11.9 ; Benign essential hypertension I10 ; Edema R60.9 and Renal insufficiency N28.9 [facility] [place] [address] [facility] [id number] [address] [place] [address] Mar, Major depressive disorder, r ecurrent, moderate F33.1 [facility] [place] [address] [facility] [id number] [address] [place] [address] Mar, [facility] [place] [address] [facility] [id number] [address] [place] [address] Mar, Major depression F32.9 [place] [id number] [facility] [id number] [place] [address] [id number] Mar, Morbid obesity E66.01 ; Benign essential hypertension I10 and Type II diabetes mellitus E11.9 [facility] [place] [address] [facility] [id number] [address] [place] [address] Feb, Major depressive disorder, r ecurrent, moderate F33.1 [place] [address] [facility] [id number] [address] [place] [address] Feb, Major depressive disorder, r ecurrent episode, in partial or unspecified remission 296.35 ; Anxiety state, unspecified 300.00 and Morbid obesity 278.01 [place] [address] [facility] [id number] [address] [place] [address] Feb, [address] [id number] [id number] Feb, Vomiting 787.03 and Viral syndrome 079.9 9 [place] [address] [address] [place] [id number] [address] [place] [address] Feb, Major depression, recurrent 296.30 ; Generalized anxiety disorder 300.02 and No condition on Danielson II V71.[address] [id number] [place] [address] [id number] Feb, Skin tag 701.9 [place] [address] [facility] [id number] [address] [place] [address] Feb, [place] [address] [address] [place] [id number] [address] [place] [address] Jan, Depression, major, recurrent , moderate 296.[address] [id number] [id number] Jan, Nausea and vomiting 787.01 ; Rib pain on right side 786.50 and Fall on or from sidewalk curb E880.1 [place] [address] [facility] [id number] [address] [place] [address] Jan, [place] [address] [facility] [id number] [address] [place] [address] Jan, Major depressive disorder, r ecurrent episode, in partial or unspecified remission 296.35 and Anxiety state, unspecified 300.[address] [place] [address] [id number] [id number] Jan, [facility] [place] [address] [facility] [id number] [address] [place] [address] Jan, Depression, major, recurrent , moderate 296.32 [facility] [place] [address] [facility] [id number] [address] [place] [address] Jan, Major depression, recurrent 296.30 ; No condition on Danielson II V71.09 and No condition on axis III V71.[address] [id number][place] [id number] Jan, Drug-induced nausea and vomiting 787.01 [facility], [place] [address] [place], [place] [id number] [place] [address] Jan, Depression, major, recurrent , moderate 296.32 [facility] [place] [address] [place], [place] [id number] [address] [place] [address] Dec, Depression, major, recurrent , moderate 296.32 [facility] [address] [facility] [address] [id number] [id number] Dec, Morbid obesity 278.01 ; Metabolic syndro me 277.7 ; Hyperlipemia 272.4 ; Benign essential hypertension 401.1 ; Dietary counseling V65.3 ; Exercise counseling V65.41 and Inflamed skin tag 701.9 [facility] [place] [address] [facility] [id number] [address] [place] [address] Dec, Depression, major, recurrent , moderate 296.32 [facility] [place] [address] [place] [id number] [address] [place] [address] Dec, [facility] [place] [address] [place], [place] [id number] [address] [place] [address] Dec, Major depression, recurrent 296.30 ; Anxiety, generalized 300.02 and No condition on Danielson II V71.09 [facility] [place] [address] [facility] [id number] [address] [place] [address] Dec, Depression, major, recurrent , moderate 296.32 [facility] [place] [address] [address] Dec, Major depressive disorder, r ecurrent episode, moderate 296.32 [place] [address] [address] [place] [address]33[address] Dec, Depression, major, recurrent , moderate 296.32 [place] [address] [address] [place] 1233[address] Dec, Depression, major, recurrent , moderate 296.32 [place] [address] [address] [place] 1233[address] Dec, Depression, major, recurrent , moderate 296.32 [place] 783252[address] Dec, Depression, major, recurrent , moderate 296.[address] [address] Nov, Depression, major, recurrent , moderate 296.32 [place] [address] [address] Nov, Major depression 296.20 ; So cial phobia 300.23 and No condition on Danielson II V71.[address] [address] Nov, Depression, major, recurrent , moderate 296.[address] [address] Nov, Major depressive disorder, r ecurrent episode, moderate 296.32 and Generalized anxiety disorder 300.02 [place] [address] [address] Nov, Depression, major, recurrent , moderate 296.32 [place] [id number] 04 Nov, 2014 Depression, major, recurrent , moderate 296.32 [place] [address] [address] [place] [id number] October, Generalized anxiety disorder 300.02 ; No condition on Danielson II V71.09 and Major depressive disorder, recurrent 296.30 [facility] [address] [id number] [address] [place] [address] 14 Sep, 2014 [facility] [address] [id number] [address] [place] [id number] 13 Sep, 2014 [facility] [address] [id number] [address] [place] [id number] 24 Aug, 2014 [facility] [address] [id number] [address] [place] [address] 24 Aug, 2014 [facility] [address] [id number] [address] [place] [id number] 23 Aug, 2014 [facility] [address] [id number] [address] [place] [address] 23 Aug, 2014 [facility] [address] [id number] [address] [place] [address] 20 Aug, 2014 [facility] [address] [id number] [address] [place] [id number] 20 Aug, 2014 [facility] [address] [id number] [address] [place] [id number] 20 Aug, 2014 [facility] [address] [id number] [address] [place] [id number] 20 Aug, 2014 [facility] [address] [id number] [address] [place] [id number] 13 Aug, 2014 [facility] [address] [id number] [address] [place] [phone] 13 Aug, 2014 [facility] [address] [id number] [address] [place] [id number] 13 Aug, 2014 [facility] [address] [id number] [address] [place] [id number] 13 Aug, 2014 [facility] [address] [id number] [address] [place] [id number] Aug, [facility] [address] [id number] [address] [place] [address], [place] [address] Aug, [facility] [address] [id number] [address] [place] [address], [place] [address] Aug, [facility] [address] [id number] [address] [place] [address], [place] [address] Aug, [facility] [address] [id number] [address] [place] [address], [place] [address] Aug, [facility] [address] [id number] [address] [place] [address], [place] [address] Aug, [facility] [address] [id number] [address] [place] [address], [place] [address] Jul, [facility] [address] [id number] [address] [place] [address], [place] [address] Jul, [facility] [address] [id number] [address] [place] [address], [place] [address] Jul, [facility] [address] [id number] [address] [place] [address], [place] [address] Jul, [facility] [address] [id number] [address] [place] [address], [place] [address] Jul, [facility] [address] [id number] [address] [place] [address], [place] [address] Jul, [facility] [address] [id number] [address] [place] [phone] Jun, [facility] [address] [id number] [address] [place] [address], [place] [address] Jun, [facility] [address] [id number] [address] [place] [address], [place] [address] Jun, [facility] [address] [id number] [address] [place] [phone] Jun, [facility] [address] [id number] [address] [place] [address], [place] [address] Jun, [facility] [address] [id number] [address] [place] [address], [place] [address] Jun, [facility] [address] [id number] [address] [place] [address], [place] [address] Jun, [facility] [address] [id number] [address] [place] [address], [place] [address] Jun, [facility] [address] [id number] [address] [place] [address], [place] [address] Jun, [facility] [address] [id number] [address] [place] [address], [place] [address] Jun, [facility] [address] [id number] [address] [place] [address], [place] [address] Jun, [facility] [address] [id number] [address] [place] [address], [place] [address] Jun, [facility] [address] [id number] [place] [id number] Jun, [facility] [address] [id number] [address] [place] [address], [place] [address] Jun, [facility] [address] [id number] [address] [place] [address], [place] [address] Jun, [facility] [address] [id number] [address] [place] [address], [place] [address] Jun, [facility] [address] [id number] [address] [place] [address], [place] [address] May, [facility] [address] [id number] [address] [place] [address], [place] [address] May, [facility] [address] [id number] [address] [place] [address], [place] [address] May, [facility] [address] [id number] [address] [place] [address] [address] May, [facility] [address] [id number] [facility] [place] [address] Apr, [facility] [address] [id number] [address] [place] [address], [place] [address] Apr, [facility] [address] [id number] [address] [place] [address], [place] [address] Apr, [facility] [address] [id number] [address] [place] [address], [place] [address] Apr, [facility] [address] [id number] [address] [place] [address], [place] [address] Apr, [facility] [address] [id number] [address] [place] [address], [place] [address] Apr, [facility] [address] [id number] [address] [place] [address], [place] [address] Apr, [facility] [address] [id number] [address] [place] [address], [place] [address] Apr, [facility] [address] [id number] [address] [place] [address], [place] [address] Apr, [facility] [address] [id number] [address] [place] [address], [place] [address] Apr, [facility] [address] [id number] [address] [place] [address] Apr, [facility] [address] [id number] [address] [place] [address] Apr, [facility] [address] [id number] [address] [place] [address], [place] [address] Apr, [facility] [address] [id number] [address] [place] [address], [place] [address] Apr, [facility] [address] [id number] [address] [place] [address], [place] [address] Apr, [facility] [address] [id number] [address] [place] [address], [place] [address] 05 Apr, 2014 [facility] [address] [id number] [address] [place] [address], [place] [address] Apr, [facility] [address] [id number] [address] [place] [address], [place] [address] Apr, [facility] [address] [id number] [address] [place] [address], [place] [address] Apr, [facility] [address] [id number] [address] [place] [address], [place] [address] Apr, [facility] [address] [id number] [address] [place] [address], [place] [address] Mar, [facility] [address] [id number] [address] [place] [address], [place] [address] Mar, [facility] [address] [id number] [address] [place] [address], [place] [address] Mar, [facility] [address] [id number] [address] [place] [address], [place] [address] Mar, [facility] [address] [id number] [address] [place] [address], [place] [address] Mar, [facility] [address] [id number] [address] [place] [address], [place] [address] Mar, [facility] [address] [id number] [address] [place] [address], [place] [address] Mar, [facility] [address] [id number] [address] [place] [address] Mar, [facility] [address] [id number] [address] [place] [address], [place] [address] Mar, [facility] [address] [id number] [address] [place] [address], [place] [address] Mar, [facility] [address] [id number] [address] [place] [address], [place] [address] Feb, [facility] [address] [id number] [place] [address] Feb, [facility] [address] [id number] [address] [place] [address], [place] [address] Feb, [facility] [address] [id number] [address] [place] [address], [place] [address] Feb, [facility] [address] [id number] [address] [place] [address], [place] [address] Jan, [facility] [address] [id number] [address] [place] [address], [place] [address] Jan, [facility] [address] [id number] [address] [place] [address], [place] [address] Jan, [facility] [address] [id number] [address] [place] [address], [place] [address] Jan, [facility] [address] [id number] [address] [place] [address], [place] [address] Jan, [facility] [address] [id number] [address] [place] [address], [place] [address] Jan, [facility] [address] [id number] [address] [place] [address], [place] [address] Dec, [facility] [address] [id number] [address] [place] [address], [place] [address] Dec, [facility] [address] [id number] [address] [place] [address], [place] [address] Nov, [facility] [address] [id number] [address] [place] [address], [place] [address] Nov, [facility] [address] [id number] [address] [place] [address], [place] [address] Nov, [facility] [address] [id number] [address] [place] [address], [place] [address] Nov, [facility] [address] [id number] [address] [place] [address], [place] [address] Nov, [facility] [address] [id number] [address] [place] [address], [place] [address] Nov, [facility] [address] [id number] [address] [place] [address], [place] [address] Sep, [facility] [address] [id number] [address] [place] [address], [place] [address] Sep, [facility] [address] [id number] [address] [place] [address], [place] [address] Sep, [facility] [address] [id number] [address] [place] [address], [place] [address] Sep, [facility] [address] [id number] [address] [place] [address], [place] [address] Aug, [facility] [address] [id number] [address] [place] [address], [place] [address] Aug, [facility] [address] [id number] [address] [place] [address], [place] [address] Jul, [facility] [address] [id number] [address] [place] [address], [place] [address] Jul, [facility] [address] [id number] [address] [place] [address], [place] [address] Jun, [facility] [address] [id number] [address] [place] [address], [place] [address] Jun, [facility] [address] [id number] [address] [place] [address], [place] [address] Jun, [facility] [address] [id number] [address] [place] [address], [place] [address] Jun, [facility] [address] [id number] [address] [place] [address], [place] [address] May, [facility] [address] [id number] [address] [place] [address], [place] [address] May, [facility] [address] [id number] [address] [place] [address], [place] [address] 13 May, 2013 [facility] [address] [id number] [address] [place] [address], [place] [address] May, [facility] [address] [id number] [address] [place] [address], [place] [address] May, [facility] [address] [id number] [address] [place] [address], [place] [address] May, [facility] [address] [id number] [address] [place] [address], [place] [address] Apr, [facility] [address] [id number] [address] [place] [address], [place] [address] Apr, [facility] [address] [id number] [address] [place] [address], [place] [address] Apr, [facility] [address] [id number] [address] [place] [address], [place] [phone] Apr, [facility] [address] [id number] [address] [place] [address], [place] [phone] Mar, [facility] [place] [facility] [address] [id number] [address] [place] [address], [place] [address] Mar, [facility] [address] [id number] [address] [place] [address], [place] [address] Mar, [facility] [address] [id number] [address] [place] [address], [place] [address] Mar, [facility] [address] [id number] [address] [place] [address], [place] [address] Feb, [facility] [address] [id number] [place] [id number] Jan, [facility] [address] [id number] [address] [place] [address], [place] [address] Jan, [facility] [address] [id number] [address] [place] [address], [place] [address] Dec, [facility] [place] [address] [id number] [address] [place] [phone] 15 Dec, 2012 [facility] [place] [address] [id number] [address] [place] [phone] 10 Dec, 2012 [facility] [address] [id number] [id number] Dec, 2012 [facility] [place] [address] [id number] [address] [place] [phone] 17 Nov, 2012 [facility] [place] [address] [id number] [address] [place] [phone] 14 Nov, 2012 [facility] [place] [address] [id number] [address] [place] [phone] Nov, [facility] [place] [address] [id number] [address] [place] [phone] Nov, [facility] [place] [address] [id number] [address] [place] [phone] Nov, [facility] [place] [address] [id number] [address] [place] [phone] October, [facility] [place] [address] [id number] [address] [place] [phone] October, [facility] [place] [address] [id number] [address] [place] [id number] Aug, [facility] [place] [address] [id number] [address] [place] [phone] Nov, IMMUNIZATIONS No Known Immunizations SOCIAL HISTORY Never Assessed REASON FOR VISIT PLAN OF CARE VITAL SIGNS Height 72 in 2014-03-07 Weight 449.9 lbs 2014-03-07 Temperature 98.1 degrees Fahrenheit 2014-03-07 Heart Rate 88 bpm 2014-03-07 Respiratory Rate 20 2014-03-07 Blood pressure systolic 130 mmHg 2014-03-07 Blood pressure diastolic 82 mmHg 2014-03-07 MEDICATIONS Unknown Medications RESULTS No Results PROCEDURES Procedure Date Ordered Result Body Site EXTREMITY STUDY Mar 07, 2014 INSTRUCTIONS MEDICATIONS ADMINISTERED No Known Medications [...] 04/2019 Hospitalization History gastric sleeve Hospitalization History [facility] ER Trouble with left shoulder blade 08/2017
--- OUTSIDE RECORDS SUMMARY | 2019-11-29 08:59 | XMS REPORT ---
Author Author Curt DIAZ [facility] Address [address] [place] [address] Care Team Providers Care Sales And Marketing Analyst Name Role Phone CHRIS DIAZ Unavailable PROBLEMS Type Condition ICD9-CM Code [id number] Code Onset Dates Condition S tatus SNOMED Code Problem Edema R60.9 Active 697095924 Problem Morbid obesity E66.01 Active 61163 6002 Problem Metabolic syndrome E88.81 Active 2 72297633 Problem Renal insufficiency N28.9 Active 267188054 Problem Vitamin D deficiency E55.9 Active 23424105 Problem Severe episode of recurrent major depressive disorder, without psychotic features F33.2 Active 73996470 Problem DANIELA (generalized anxiety disorder) F41.1 Active 98648329 Problem Mixed obsessional thoughts and acts F42.2 Active 31157628 Problem Chronic fatigue R53.82 Active 8422 9001 Problem Other chronic pain G89.29 Active 8 8985045 Problem Borderline personality disorder F60.3 Active 75817823 Problem Attachment disorder F94.1 Active Problem Sciatica, right side M54.31 Active 485915304004789 Problem Insomnia G47.00 Active 704819726 Problem Anxiety F41.9 Active 32872428 Problem BMI 45.0-49.9, adult Z68.42 Active 557221196 Problem Hyperlipemia E78.5 Active 4723148 4 Problem Benign essential hypertension I10 Active 1530288 Problem Callous ulcer, limited to breakdown of skin L98.49 1 Active Problem Hammer toe of right foot M20.41 Activ e 841046784 Problem Hammer toe of second toe of right foot M20.41 Active 577101500 Problem Falling episodes R29.6 Active 161 [id number] ALLERGIES No Information ENCOUNTERS Encounter Location Date Diagnosis [facility] [address] [id number] [place] [address] Dec, [facility] [id number] [place] [address] 15 Dec, 2019 [facility] [address] [id number] [id number] 14 Dec, 2019 [facility] [address] [address] Dec, [facility] [address] [address] Nov, [facility] [address] [address] Nov, [facility] [address] [address] October, [facility] [address] [address] October, [facility] [address] [address] Sep, [facility] [address] [address] Sep, [facility] [address] [address] Sep, [facility] [address] [address] Aug, [facility] [address] [id number] [id number] Aug, Dizzy R42 ; Weight gain R63.5 ; Benign e ssential hypertension I10 ; Falling episodes R29.6 and History of gastric bypass Z98.84 [facility] [address] [address] 14 Aug, 2019 [facility] [address] [address] 13 Aug, 2019 [facility] [address] [address] 11 Aug, 2019 DANIELA (generalized anxiety disorder) F41.1 ; Severe episode of recurrent major depressive disorder, without psychotic features F33.2 ; Mixed obsessional thoughts and acts F42.2 and Borderline personality disorder F60.3 [facility] [address] [id number] [place] [facility] [id number] Aug, [facility] [address] [id number] [place] [facility] [id number] Aug, [facility] [address] [id number] Aug, [facility] [address] [id number] [place] [facility] [id number] Aug, [facility] [address] [id number] [place] [id number] Aug, [facility] [address] [address] Aug, [facility] [address] [id number] [place] [id number] Aug, Severe episode of recurrent major depres sive disorder, without psychotic features F33.2 ; Borderline personality disorder F60.3 ; Anxiety F41.9 and Attachment disorder F94.1 [place] [address] [address] Jul, [facility] [address] [address] Jul, DANIELA (generalized anxiety disorder) F41.1 ; Severe episode of recurrent major depressive disorder, without psychotic features F33.2 ; Mixed obsessional thoughts and acts F42.2 and Borderline personality disorder F60.3 [facility] [address] [id number] [id number] Jul, [facility] [address] [address] 17 Jul, 2019 [facility] [address] [id number] 14 Jul, 2019 [facility] [address] [id number] 12 Jul, 2019 [place] [address] [address] Jul, [place] [address] [id number] Jun, DANIELA (generalized anxiety disorder) F41.1 ; Severe episode of recurrent major depressive disorder, without psychotic features F33.2 ; Mixed obsessional thoughts and acts F42.2 and Borderline personality disorder F60.[address] AVNORT[facility] [id number] [place] [id number] Jun, [address] AVT[address] [facility]ITALAN59811J[place] [id number] Jun, [place] [address] [address] Jun, [place] [address] [address] Jun, DANIELA (generalized anxiety disorder) F41.1 ; Severe episode of recurrent major depressive disorder, without psychotic features F33.2 ; Mixed obsessional thoughts and acts F42.2 and Borderline personality disorder F60.[address] [id number] [id number] Jun, [address] [id number] [id number] Jun, [id number] [place] [id number] Jun, [address] [id number] [id number] Jun, Benign essential hypertension I10 ; Morb id obesity E66.01 ; Severe episode of recurrent major depressive disorder, without psychotic features F33.2 ; Excess skin L98.7 and Hyperlipemia E78.5 [place] [address] [address] Jun, [place] [address] [address] May, [place] [id number] [place] [address] May, Severe episode of recurrent major depres sive disorder, without psychotic features F33.2 ; Mixed obsessional thoughts and acts F42.2 ; DANIELA (generalized anxiety disorder) F41.1 and Borderline personality disorder F60.3 [facility] [address] [address] May, [facility] [address] [address] May, DANIELA (generalized anxiety disorder) F41.1 ; Severe episode of recurrent major depressive disorder, without psychotic features F33.2 ; Mixed obsessional thoughts and acts F42.2 and Borderline personality disorder F60.3 [facility] [address] [address] May, [facility] [address] [address] May, [facility] [address] [address] May, Severe episode of recurrent major depres sive disorder, without psychotic features F33.2 ; Mixed obsessional thoughts and acts F42.2 ; Borderline personality disorder F60.3 and DANIELA (generalized anxiety disorder) F41.1 [facility] [address] [facility] [place] [id number] May, Caries K02.9 [facility] [address] [id number] [id number] May, Benign essential hypertension I10 [facility] [address] [id number] [place] [id number] Apr, [facility] [address] [id number] [place] [id number] Apr, Benign essential hypertension I10 [facility] [address] [address] Apr, Borderline personality disorder F60.3 ; DANIELA (generalized anxiety disorder) F41.1 ; Mixed obsessional thoughts and acts F42.2 and Severe episode of recurrent major depressive disorder, without psychotic features F33.2 [facility] [address] [id number] [place] [id number] Apr, [facility] [address] [id number] [facility] [id number] Apr, Benign essential hypertension I10 [facility] [address] [id number] Apr, Severe episode of recurrent major depres sive disorder, without psychotic features F33.2 ; DANIELA (generalized anxiety disorder) F41.1 ; Borderline personality disorder F60.3 and Mixed obsessional thoughts and acts F42.2 [facility] [address] [id number] Apr, Dental examination Z01.20 [facility] [address] [id number] Apr, Caries K02.9 and Dental examination Z01. 20 [facility] [address] [address] Apr, DANIELA (generalized anxiety disorder) F41.1 ; Severe episode of recurrent major depressive disorder, without psychotic features F33.2 ; Mixed obsessional thoughts and acts F42.2 and Borderline personality disorder F60.3 [facility] [address] [address] Mar, Severe episode of recurrent major depres sive disorder, without psychotic features F33.2 ; Mixed obsessional thoughts and acts F42.2 ; Borderline personality disorder F60.3 and DANIELA (generalized anxiety disorder) F41.1 [facility] [address] [address] Mar, Severe episode of recurrent major depres sive disorder, without psychotic features F33.2 ; Mixed obsessional thoughts and acts F42.2 ; DANIELA (generalized anxiety disorder) F41.1 and Borderline personality disorder F60.3 [facility] [address] [id number] Mar, Dental examination Z01.20 and Caries K02 .9 [address]07757[place] [id number] Mar, Benign essential hypertension I10 and Fa lling episodes R29.6 [facility] [address] [address] Mar, [place] [address] [address] Mar, Severe episode of recurrent major depres sive disorder, without psychotic features F33.2 ; Mixed obsessional thoughts and acts F42.2 ; Borderline personality disorder F60.3 and DANIELA (generalized anxiety disorder) F41.1 [place] [address] [address] Mar, [place] [address] [address] Mar, [address]07757[place] [id number] Mar, [place] [address] [address] Mar, Severe episode of recurrent major depres sive disorder, without psychotic features F33.2 ; Mixed obsessional thoughts and acts F42.2 ; Borderline personality disorder F60.3 and DANIELA (generalized anxiety disorder) F41.1 [place] [address] [address] Mar, [facility] [address] [id number] [place] [id number] Feb, Dental examination Z01.20 and Periodonti tis K05.30 [facility] [address] [place] [address] Feb, DANIELA (generalized anxiety disorder) F41.1 ; Severe episode of recurrent major depressive disorder, without psychotic features F33.2 ; Mixed obsessional thoughts and acts F42.2 and Borderline personality disorder F60.3 [address]07757[place] [id number] 30 Feb, 2019 Acute pain of right knee M25.561 ; Fall, initial encounter W19.XXXA ; Benign essential hypertension I10 and Edema R60.9 [place] [address] [address] Feb, [place] [address] [address] Feb, DANIELA (generalized anxiety disorder) F41.1 ; Severe episode of recurrent major depressive disorder, without psychotic features F33.2 ; Mixed obsessional thoughts and acts F42.2 and Borderline personality disorder F60.3 [place] [address] [address] Feb, [place] [address] [address] Jan, [place] [address] [address] Jan, [place] [address] [address] Jan, [facility] [address] [id number] [id number] Jan, Callus of heel L84 ; Fissure in skin R23 .4 and Hammer toe of second toe of right foot M20.41 [facility] [address] [id number] [id number] Jan, [place] [address] [address] Jan, [place] [address] [address] Jan, [place] [address] [address] Jan, Severe episode of recurrent major depres sive disorder, without psychotic features F33.2 ; DANIELA (generalized anxiety disorder) F41.1 ; Mixed obsessional thoughts and acts F42.2 and Borderline personality disorder F60.3 [place] [id number] [place] [address] Jan, [facility] [address] [id number] [place] [id number] Jan, Benign essential hypertension I10 [facility] [address] [id number] [facility] [id number] Dec, Callous ulcer, limited to breakdown of s kin L98.491 and Morbid obesity E66.01 [place] [address] [address] Dec, [facility] [address] [address] Dec, [place] [address] [address] Dec, [place] [address] [address] Dec, [place] [address] [address] Dec, Severe episode of recurrent major depres sive disorder, without psychotic features F33.2 [place] [address] [address] Dec, DANIELA (generalized anxiety disorder) F41.1 ; Severe episode of recurrent major depressive disorder, without psychotic features F33.2 ; Mixed obsessional thoughts and acts F42.2 and 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 [facility] [address] [id number] [place] [id number] Dec, Morbid obesity E66.01 [facility] [address] [address] Dec, [facility] [address] [address] Dec, [facility] JENNY LICEA [address] [place] [address] Nov, [facility] [address] [id number] [place] [id number] Nov, [facility] [address] [address] Nov, [facility] [address] [address] Nov, [facility] [address] [address] Nov, DANIELA (generalized anxiety disorder) F41.1 ; Severe episode of recurrent major depressive disorder, without psychotic features F33.2 ; Mixed obsessional thoughts and acts F42.2 and 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 [address]07757[place] [id number] Nov, Morbid obesity E66.01 [place] [address] [address] Nov, [place] [address] [address] Nov, DANIELA (generalized anxiety disorder) F41.1 ; Mixed obsessional thoughts and acts F42.2 ; Severe episode of recurrent major depressive disorder, without psychotic features F33.2 and 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 [place] [facility] A[address] [id number] [place] [id number] October, Morbid obesity E66.[address] [id number] [place] [id number] October, Benign essential hypertension I10 and Mo rbid obesity E66.01 [facility] [address] [id number] [place] [id number] October, [facility] [address] [address] October, Severe episode of recurrent major depres sive disorder, without psychotic features F33.[address] [id number] [place] [id number] October, Morbid obesity E66.[address] [id number] [place] [id number] October, [facility] [id number] [place] [address] October, Severe episode of recurrent major depres sive disorder, without psychotic features F33.2 ; DANIELA (generalized anxiety disorder) F41.1 ; Mixed obsessional thoughts and acts F42.2 and 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 [id number] [id number] October, Morbid obesity E66.01 [facility] [address] [facility] [place] [address] Sep, Dental examination Z01.20 [place] [id number] [place] [id number] Sep, [facility] [address] [facility] [id number] 100KS [place] [address] Sep, Sore in mouth K13.79 and Mor bid obesity E66.01 [facility] [address] [address] Sep, Dental examination Z01.20 [facility] [address] [address] Sep, Anxiety disorder, unspecified F41.9 [place] [address] AVNORT[facility]AN HOSPITALED58189WW[place] [id number] Sep, Mouth ulcer K12.[address] [id number] [place] [id number] Sep, Morbid obesity E66.[address] [id number] [place] [id number] Sep, Allergic rhinitis, unspecified seasonali ty, unspecified trigger J30.9 and Shortness of breath R06.[address] [id number] [place] [id number] Sep, 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 [place] [address], [place] [id number] Aug, Mouth abscess K12.2 ; Mouth ulcer K12.1 ; Bloating R14.0 and Morbid obesity E66.[address] AVNORTON SUB[facility] HOSPITALSD50550QW[place] [address] Aug, [facility] [place] AVNORT[facility] SUB[facility]AN HOSPITALWD13948AWILLIAM[place]UR[place] [id number] Aug, [address] AVT[address] [facility] [id number] [place] [address], [place] [id number] Jul, Major depressive disorder, recurrent, mo derate F33.1 ; Abscess of arm, left L02.414 ; BMI 45.0-49.9, adult Z68.42 and Morbid obesity E66.[address] AVN[facility] HOSPITALXX19622TWILL[place] [id number] Jul, [facility] [place] [id number] [place] [id number] Jul, [facility] [place] AVNORT[facility] SUBURBAN [id number] [place] [id number] Jun, Pain in right knee M25.561 and Other chr onic pain G89.[address] AVNORT[facility] SUBURB[facility] [id number] [place] [id number] Jun, Benign essential hypertension I10 ; BMI 45.0-49.9, adult Z68.42 ; Morbid obesity E66.01 ; Vitamin D deficiency E55.9 ; Insomnia G47.00 ; 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 ; Edema R60.9 ; Recurrent major depressive disorder, in partial remission F33.41 ; Chronic fatigue R53.82 ; Acute pain of right knee M25.561 ; Metabolic syndrome E88.81 and Irritable mood R45.4 [place] [address] [facility] [place] [address] Jun, [address] [place] [id number] Jun, Irritable mood R45.4 [place] [address] [facility] [place] [address] May, [facility] [address] [address] May, [facility] [address] [address] May, Recurrent major depressive disorder, in partial remission F33.41 ; Mixed obsessional thoughts and acts F42.2 ; 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 2 ; Recurrent major depressive disorder, in partial remission F33.41 ; DANIELA (generalized anxiety disorder) F41.1 and BMI 45.0-49.9, adult Z68.42 [facility] [place] [address] [id number] [facility] [id number] Mar, [facility] [place] [address] [id number] [facility] [id number] Mar, BMI 45.0-49.9, adult Z68.42 ; Instabilit y of right knee joint M25.361 and Rash R21 [facility] [address] [address] Jan, Recurrent major depressive disorder, in partial remission F33.41 ; Mixed obsessional thoughts and acts F42.2 and BMI 45.0-49.9, adult Z68.42 [facility] [place] [address] [id number] [facility] [id number] Jan, [facility] [place] [address] [id number] [place] [id number] Jan, Benign essential hypertension I10 ; BMI 45.0-49.9, adult Z68.42 ; Metabolic syndrome E88.81 and Allergic rhinitis, unspecified seasonality, unspecified trigger J30.9 [facility] [id number] [place] [address] Dec, DANIELA (generalized anxiety disorder) F41.1 and Depressive disorder, not elsewhere classified F32.9 [facility] [address] [address] [id number] [place] [id number] Dec, Recurrent major depressive disorder, in partial remission F33.41 [facility] [place] [address] [id number] [place] [id number] Dec, [facility] [place] [address] [id number] [place] [id number] Nov, [facility] [place] [address] [id number] [place] [id number] Nov, Recurrent major depressive disorder, in partial remission F33.41 [facility] [address] [id number] [place] [address] Nov, Recurrent major depressive disorder, in partial remission F33.41 ; Mixed obsessional thoughts and acts F42.2 ; DANIELA (generalized anxiety disorder) F41.1 and BMI 45.0-49.9, adult Z68.42 [facility] [place] [address] [id number] [place] [id number] Nov, [facility] [place] [address] [id number] [place] [id number] Nov, Other conjunctivitis of both eyes H10.89 and Sciatica, right side M54.31 [facility] [place] [address] [id number] [place] [id number] Nov, [facility] [place] [address] [id number] [place] [id number] Nov, [facility] [place] [address] [id number] [place] [id number] October, [facility] [place] [address] [id number] [place] [id number] October, [facility] [address] [facility] [place] [address] October, BMI 45.0-49.9, adult Z68.42 ; Mixed obse ssional thoughts and acts F42.2 ; Recurrent major depressive disorder, in partial remission F33.41 and DANIELA (generalized anxiety disorder) F41.[address] [id number] [place] [id number] October, Benign essential hypertension I10 ; Morb id obesity E66.01 and BMI 45.0- 49.9, adult Z68.42 [facility] [address] [address] [id number] [place] [id number] Sep, [facility] [place] [address] [id number] [place] [id number] Sep, [facility] [address] [address] [id number] [place] [id number] Sep, [facility] [place] [address] [id number] [place] [id number] Sep, Hospital discharge follow-up Z09 ; Aller gic rhinitis, unspecified seasonality, unspecified trigger J30.9 and Shortness of breath R06.02 [facility] [address] [id number] [place] [id number] Sep, Recurrent major depressive disorder, in partial remission F33.41 [facility] [address] [address] [id number] [place] [id number] Aug, Irritable mood R45.4 [facility] [address] [facility] [place] [address] Aug, [facility] [place] [address] [id number] [place] [id number] Jul, Benign essential hypertension I10 ; Robert a R60.9 and Impacted cerumen of left ear H61.22 [place] [id number] [place] [address] 14 Jul, 2017 Major depression F32.9 ; Recurrent major depressive disorder, in partial remission F33.41 and Anxiety F41.9 [place] [id number] [place] [id number] [place] [address] Jun, Major depression F32.9 ; Recurrent major depressive disorder, in partial remission F33.41 and Anxiety F41.9 [facility] [address] [id number] [place] [id number] Jun, Major depression F32.9 ; Morbid obesity E66.01 ; Irritable mood R45.4 ; Hand weakness R29.898 and Vitamin D deficiency E55.9 [facility] [address] [id number] [place] [id number] Jun, [facility] [address] [id number] [place] [id number] May, Major depression F32.9 [place] [id number] [place] [address] May, Major depression F32.9 [facility] [address] [id number] [place] [address] May, BMI 50.0-59.9, adult Z68.43 ; Major depr ession F32.9 ; Anxiety F41.9 ; Hypertrophic toenail L60.2 and Pain of left great toe M79.675 [facility] [address] [id number] [place] [id number] May, Recurrent major depressive disorder, in partial remission F33.41 [place] [address] [address] Apr, [facility] [address] [id number] [place] [id number] Apr, [place] [address] [address] Apr, Major depression F32.9 [facility] [address] [id number] [place] [id number] Apr, Severe episode of recurrent major depres sive disorder, without psychotic features F33.2 ; Anxiety F41.9 and Insomnia G47.00 [facility] [address] [id number] [place] [id number] Apr, [facility] [address] [address] Apr, [facility] [place] [address] [id number] [place] [id number] Apr, [facility] [place] [address] [id number] [place] [id number] Mar, [facility] [address] [id number] [place] [id number] Mar, Allergic conjunctivitis of both eyes H10 .13 [place] [address] [address] Mar, Major depression F32.9 [facility] [address] [id number] [place] [id number] Mar, Metabolic syndrome E88.81 ; History of g astric bypass Z98.890 ; Benign essential hypertension I10 ; Allergic conjunctivitis of both eyes H10.13 and Morbid obesity E66.01 [place] [address] [address] Mar, Major depression F32.9 [facility] [address] [id number] [place] [id number] Feb, [place] [address] [address] Feb, Major depression F32.9 [facility] [address] [id number] [place] [id number] Feb, Subacute maxillary sinusitis J01.00 and Bronchitis J40 [facility] [address] [address] Feb, Major depressive disorder, recurrent, mo derate F33.1 [facility] [address] [id number] [place] [id number] Jan, [facility] [address] [id number] [place] [id number] Jan, Acute non-recurrent maxillary sinusitis J01.00 and Skin tag L91.8 [facility] [address] [id number] [place] [id number] Jan, Cough R05 and Sinus congestion R09.81 [facility] [address] [id number] [place] [id number] Jan, [place] [address] [id number] [place] [address] Jan, Benign essential hypertension I10 ; Hist ory of gastric bypass Z98.890 and Nausea and vomiting in adult R11.2 [place] [address] [address] Jan, Major depressive disorder, recurrent, mo derate F33.1 [facility] [address] [address] Dec, Insomnia G47.00 ; Recurrent major depres sive disorder, in partial remission F33.41 and Morbid obesity E66.01 [facility] [address] [id number] [place] [id number] Dec, [place] [address] [id number] [place] [id number] Dec, Chronic bacterial conjunctivitis of left eye H10.402 [facility] [address] [id number] [place] [id number] Nov, [facility] [address] [id number] [place] [id number] Nov, Dental examination Z01.20 [facility] [place] [address] [id number] [place] [id number] Nov, Benign essential hypertension I10 ; Hist ory of gastric bypass Z98.890 and Nausea and vomiting in adult R11.2 [place] [address] [address] Nov, Major depressive disorder, recurrent, mo derate F33.1 ; Generalized anxiety disorder F41.1 and Insomnia due to other mental disorder F51.05 [place] [address] [address] Nov, Recurrent major depressive disorder, in partial remission F33.41 ; Insomnia G47.00 and Morbid obesity E66.01 [facility] [address] [id number] [place] [address] October, Abscess of left arm L02.414 [place] [address] [address] October, Morbid obesity E66.01 ; Major depression F32.9 and Recurrent major depressive disorder, in partial remission F33.41 [facility] [address] [facility] [id number] Sep, Benign essential hypertension I10 ; Morb id obesity E66.01 ; S/P gastric bypass Z98.84 ; Abscess L02.91 and Chronic bacterial conjunctivitis of left eye H10.402 [facility] [address] [facility] [id number] Sep, Dental examination Z01.[address] [address] Sep, Morbid obesity E66.01 ; Major depression F32.9 and Recurrent major depressive disorder, in partial remission F33.41 [place] [address] [address] Jul, [address] [address] Jul, Major depressive disorder, recurrent, mo derate F33.1 [place] [address] [address] Jul, Major depressive disorder, recurrent, mo derate F33.1 and Generalized anxiety disorder F41.1 [facility] [address] [id number] [place] [id number] Jul, Cough R05 [place] [address] [address] Jul, Morbid obesity E66.01 ; Major depression F32.9 and Recurrent major depressive disorder, in partial remission F33.41 [facility] [place] [address] [id number] [place] [id number] Jul, [facility] [place] [address] [id number] [place] [id number] Jul, [facility] [place] [address] [id number] [place] [id number] Jul, Gastroenteritis K52.9 and Cough R05 [facility] [address] [id number] [place] [id number] Jun, Acute bacterial conjunctivitis of left e ye H10.32 [place] [address] [address] Jun, [place] [address] [address] Jun, Recurrent major depressive disorder, in partial remission F33.41 [place] [address] [address] May, Major depression F32.9 and Morbid obesit y E66.01 [place] [address] [address] May, [facility] [address] [id number] [place] [id number] May, Thrush B37.0 [place] [address] [address] Apr, Major depressive disorder, recurrent, mo derate F33.1 [place] [address] [address] Apr, Insomnia G47.00 ; Major depression F32.9 and Recurrent major depressive disorder, in partial remission F33.41 [place] [address] [address] Apr, [place] [address] [address] Apr, Major depression F32.9 and Recurrent romi or depressive disorder, in partial remission F33.41 [facility] [address] [id number] [place] [id number] Mar, Benign essential hypertension I10 ; Morb id obesity E66.01 ; Impacted cerumen of both ears H61.23 ; Laceration of finger of right hand, initial encounter S61.219A and Encounter for immunization Z23 [place] [address] [address] 17 Mar, 2016 [place] [address] [address] Mar, [place] [address] [address] Mar, [facility] [address] [id number] [place] [id number] Feb, Nausea R11.0 ; Blood in the stool K92.1 and Benign essential hypertension I10 [place] [address] [address] Feb, Major depression F32.9 and Recurrent romi or depressive disorder, in partial remission F33.41 [facility] [place] [address] [id number] [place] [id number] Feb, [facility] [place] [address] [id number] [place] [id number] Feb, Recurrent major depressive disorder, in partial remission F33.41 [facility] [place] [address] [id number] [place] [id number] Jan, [facility] [place] [address] [id number] [place] [id number] Jan, Benign essential hypertension I10 ; Robert a R60.9 and Hyperlipidemia, unspecified hyperlipidemia type E78.5 [facility] [address] [id number] [facility] [id number] Jan, Recurrent major depressive disorder, in partial remission F33.41 [facility] [address] [id number] [place] [id number] Jan, [facility] [address] [id number] [place] [facility] [id number] Jan, [facility] [address] [id number] [place] [id number] Jan, [facility] [address] [address] Jan, [facility] [address] [address] Dec, [facility] [address] [address] Nov, [facility] [address] [address] Nov, Major depression F32.9 [facility] [address] [address] Nov, [facility] [address] [address] Nov, [facility] [address] [address] Nov, Major depressive disorder, recurrent epi sode, mild F33.0 and Anxiety F41.9 [facility] [address] [id number] [place] [id number] Nov, [facility] [address] [id number] [place] [id number] October, Left elbow pain M25.522 and Other season al allergic rhinitis J30.2 [facility] [address] [id number] [place] [id number] October, [place] [address] [address] October, Major depressive disorder, recurrent, mo derate F33.1 [place] [address] [address] October, Major depression F32.9 [place] [address] [address] Sep, [place] or callus L84 and Onychomycosis B35 .1 [place] [address] [address] Sep, Major depressive disorder, recurrent, mo derate F33.1 [place] [address] [address] Sep, Major depression F32.9 [place] [address] [address] Sep, Moderate episode of recurrent major depr essive disorder F33.1 [facility] [address] [id number] [employer] [place] [id number] Sep, Muscle strain T14.8 [place] [address] [address] Aug, Major depression F32.9 [place] [address] [address] Aug, Major depression F32.9 [place] [address] [address] Jul, Morbid obesity E66.01 and Major depressi on F32.9 [place] [address] [address] Jul, Depression, major, recurrent, moderate F 33.1 [facility] [place] [address] [id number] [employer] [place] [id number] Jul, [place] [address] [address] Jul, [place] [address] [address] 16 Jul, 2015 Major depression F32.9 and Morbid obesit y E66.01 [place] [address] [id number] [id number] 11 Jul, 2015 Type II diabetes mellitus E11.9 ; Callus of foot L84 ; Benign essential hypertension I10 and Renal insufficiency N28.9 [place] [address] [address] 09 Jul, 2015 Depression, major, recurrent, moderate F 33.1 [place] [address] [address] 05 Jul, 2015 Major depression F32.9 [place] [address] [address] Jul, [place] [address] [address] Jun, Major depression F32.9 [place] [address] [address] Jun, Major depressive disorder, recurrent, mo derate F33.1 [place] [address] [address] Jun, [place] [address] [address] Jun, Major depressive disorder, recurrent, mo derate F33.1 and Major depression F32.9 [facility] [address] [facility] [address] Jun, Type II diabetes mellitus E11.9 [place] [address] [address] Jun, Depression, major, recurrent, moderate F 33.1 [place] [address] [address] May, Major depressive disorder, recurrent, mo derate F33.1 [facility] [address] [address] May, [place] [address] May, Edema R60.[address] [address] May, Insomnia G47.00 and Major depression F32 .[address] [id number] 15 May, 2015 Morbid obesity E66.01 ; Edema R60.9 ; Sh ortness of breath R06.02 ; Benign essential hypertension I10 and Renal insufficiency N28.9 [place] [address] May, Hyperlipemia 272.4 and Renal insufficien cy N28.[address] [address] Apr, Major depression F32.9 [place] [address] [address] Apr, [address] [address] Apr, Major depressive disorder, recurrent, mo derate F33.1 [address] [id number] Apr, Type II diabetes mellitus E11.9 ; Benign essential hypertension I10 ; Edema R60.9 and Renal insufficiency N28.9 [facility] [address] [address] Mar, Major depressive disorder, recurrent, mo derate F33.1 [place] [address] [address] Mar, [facility] [address] [address] Mar, Major depression F32.9 [address] [id number] 08 Mar, 2015 Morbid obesity E66.01 ; Benign essential hypertension I10 and Type II diabetes mellitus E11.[address] [address] 24 Feb, 2015 Major depressive disorder, recurrent, mo derate F33.[address] [address] Feb, Major depressive disorder, recurrent epi sode, in partial or unspecified remission 296.35 ; Anxiety state, unspecified 300.00 and Morbid obesity 278.[address] [address] Feb, [address] [id number] 16 Feb, 2015 Vomiting 787.03 and Viral syndrome 079.[address] [address] 15 Feb, 2015 Major depression, recurrent 296.30 ; Gen eralized anxiety disorder 300.02 and No condition on [place] II V71.[address] [id number] Feb, Skin tag 701.[address] [address] Feb, [address] [address] Jan, Depression, major, recurrent, moderate 2 96.32 [address] [place] [id number] Jan, Nausea and vomiting 787.01 ; Rib pain on right side 786.50 and Fall on or from sidewalk curb E880.[address] [address] Jan, [address] [address] Jan, Major depressive disorder, recurrent epi sode, in partial or unspecified remission 296.35 and Anxiety state, unspecified 300.00 [facility] [address] [place], [place] [address] [place] [id number] Jan, [facility] [address] [place] [address] Jan, Depression, major, recurrent, moderate [address] [address] Jan, Major depression, recurrent 296.30 ; No condition on Pocola II V71.09 and No condition on axis III V71.09 [address]757[place] [address] Jan, Drug-induced nausea and vomiting 787.[address] [address] Jan, Depression, major, recurrent, moderate [address] [address] Dec, Depression, major, recurrent, moderate 2 96.32 [address] [place] [address] Dec, Morbid obesity 278.01 ; Metabolic syndro me 277.7 ; Hyperlipemia 272.4 ; Benign essential hypertension 401.1 ; Dietary counseling V65.3 ; Exercise counseling V65.41 and Inflamed skin tag 701.[address] [address] Dec, Depression, major, recurrent, moderate [address] [address] Dec, [address] [address] Dec, Major depression, recurrent 296.30 ; Anx iety, generalized 300.02 and No condition on Pocol[place] II V71.[address] [place] [address] Dec, Depression, major, recurrent, moderate 2 96.32 [place] [address] Dec, Major depressive disorder, recurrent epi sode, moderate 296.32 [place] [address] Dec, Depression, major, recurrent, moderate 2 96.32 [place] 395[address] Dec, Depression, major, recurrent, moderate 2 96.32 [place] [address] Dec, Depression, major, recurrent, moderate 2 96.32 [place] 395[address] Dec, Depression, major, recurrent, moderate 2 96.32 [place] [address] Nov, Depression, major, recurrent, moderate [address] [address] Nov, Major depression 296.20 ; Social phobia 300.23 and No condition on Pocol[place] II V71.[address] [address] Nov, Depression, major, recurrent, moderate [address] [address] Nov, Major depressive disorder, recurrent epi sode, moderate 296.32 and Generalized anxiety disorder 300.02 [place] [id number] Nov, Depression, major, recurrent, moderate 2 96.32 [place] [address] Nov, Depression, major, recurrent, moderate 2 96.32 [facility] [address] [id number] [place] [address] 07 Oct, 2014 Generalized anxiety disorder 300.02 ; No condition on Pocola II V71.09 and Major depressive disorder, recurrent 296.30 [facility] [id number] [place] [address] 14 Sep, 2014 [facility] [id number] [place] [address] 13 Sep, 2014 [facility] [id number] [place] [address] 24 Aug, 2014 [facility] [id number] [place] [address] 24 Aug, 2014 [facility] [id number] [place] [address] 23 Aug, 2014 [facility] [id number] [place] [address] 23 Aug, 2014 [facility] [id number] [place] [address] 20 Aug, 2014 [facility] [id number] [place] [address] 20 Aug, 2014 [facility] [id number] [place] [address] 20 Aug, 2014 [facility] [id number] [place] [address] 20 Aug, 2014 [facility] [id number] [place] [address] 13 Aug, 2014 [facility] [id number] [place] [address] 13 Aug, 2014 [facility] [id number] [place] [address] 13 Aug, 2014 [facility] [id number] [place] [address] 13 Aug, 2014 [facility] [id number] [place] [address] Aug, [facility] [address] [facility] [id number] [place] [address] Aug, [facility] [address] [facility] [id number] [facility] [place] [address] Aug, [facility] [address] [facility] [id number] [facility] [place] [address] Aug, [facility] [address] [id number] [facility] [place] [address] Aug, [facility] [address] [facility] [id number] [facility] [place] [address] Aug, [facility] [address] [id number] [facility] [place] [address] Jul, [facility] [address] [id number] [place] [address] Jul, [facility] [address] [id number] [facility] [place] [address] Jul, [facility] [address] [id number] [place] [address] Jul, [facility] [address] [id number] [facility] [place] [place] [address] Jul, [facility] [address] [id number] [place] [address] Jul, [facility] [address] [id number] [place] [address] Jun, [facility] [address] [id number] [facility] [place] [place] [address] Jun, [facility] [address] [id number] [place] [address] Jun, [facility] [address] [id number] [place] [address] Jun, [facility] [address] [id number] [place] [address] Jun, [facility] [address] [id number] [place] [address] Jun, [facility] [address] [id number] [place] [address] Jun, [facility] [address] [id number] [place] [address] Jun, [facility] [address] [id number] [place] [address] Jun, [facility] [address] [id number] [place] [address] Jun, [facility] [address] [id number] [place] [address] Jun, [facility] [address] [id number] [place] [address] Jun, [facility] [address] [place] [id number] Jun, [facility] [address] [id number] [place] [address] Jun, [facility] [address] [id number] [place] [address] Jun, [facility] [address] [id number] [place] [address] Jun, [facility] [address] [id number] [place] [address] May, [facility] [address] [id number] [place] [address] May, [facility] [address] [id number] [place] [address] May, [facility] [address] [id number] [place] [address] May, [facility] [address] [id number] [place] [address] Apr, [facility] [address] [id number] [place] [address] Apr, [facility] [address] [id number] [place] [address] Apr, [facility] [address] [id number] [place] [address] Apr, [facility] [address] [id number] [place] [address] Apr, [facility] [address] [id number] [place] [address] Apr, [facility] [address] [id number] [place] [address] Apr, [facility] [address] [id number] [place] [address] Apr, [facility] [address] [id number] [place] [address] Apr, [facility] [address] [id number] [place] [address] Apr, [facility] [address] [id number] [place] [address] Apr, [facility] [address] [id number] [place] [address] Apr, [facility] [address] [id number] [place] [address] Apr, [facility] [address] [id number] [place], [place] [address] Apr, [facility] [address] [id number] [place] [address] Apr, [facility] [address] [id number] [place] [address] Apr, [facility] [address] [id number] [place] [address] Apr, [facility] [address] [id number] [place] [address] Apr, [facility] [address] [id number] [place] [address] Apr, [facility] [address] [id number] [place] [address] Apr, [facility] [address] [facility] [id number] [place] [address] Mar, [facility] [address] [id number] [place] [address] Mar, [facility] [address] [id number] [place] [address] Mar, [facility] [address] [facility] [id number] [place] [address] Mar, [facility] [address] [id number] [place] [address] Mar, [facility] [address] [id number] [place] [address] Mar, [facility] [address] [id number] [place] [address] Mar, [facility] [address] [id number] [place] [address] Mar, [facility] [address] [id number] [place] [address] Mar, [facility] [address] [id number] [place] [address] Mar, [facility] [address] [id number] [place] [address] Feb, [facility] [address] [id number] [place] [address] Feb, [facility] [address] [id number] [place] [address] Feb, [facility] [address] [id number] [place] [address] Feb, [facility] [address] [id number] [place] [address] Jan, [facility] [address] [id number] [place] [address] Jan, [facility] [address] [id number] [facility] [place] [address] Jan, [facility] [address] [facility] [id number] [place] [address] Jan, [facility] [address] [id number] [place] [address] Jan, [facility] [address] [facility] [id number] [place] [address] Jan, [facility] [address] [id number] [place] [address] Dec, [facility] [address] [id number] [place] [address] Dec, [facility] [address] [id number] [place] [address] Nov, [facility] [address] [id number] [place] [address] Nov, [facility] [address] [id number] [place] [address] Nov, [facility] [address] [id number] [place] [address] Nov, [facility] [address] [id number] [place] [address] Nov, [facility] [address] [id number] [place] [address] Nov, [facility] [address] [id number] [place] [address] Sep, [facility] [address] [id number] [place] [address] Sep, [facility] [address] [id number] [place] [address] Sep, [facility] [address] [id number] [place] [address] Sep, [facility] [address] [id number] [place] [address] Aug, [facility] [address] [id number] [place] [address] Aug, [facility] [address] [id number] [place] [address] Jul, [facility] [address] [id number] [place] [address] Jul, [facility] [address] [id number] [place] [address] Jun, [facility] [address] [id number] [place] [address] Jun, [facility] [address] [id number] [place] [address] Jun, [facility] [address] [id number] [place] [address] Jun, [facility] [address] [id number] [place] [address] May, [facility] [address] [id number] [place] [address] May, [facility] [address] [id number] [place] [address] May, [facility] [address] [id number] [place] [address] May, [facility] [address] [id number] [place] [address] May, [facility] [address] [id number] [place] [address] May, [facility] [address] [id number] [place] [address] Apr, [facility] [address] [id number] [place] [address] Apr, [facility] [address] [id number] [place] [address] 07 Apr, 2013 [facility] [address] [id number] [place] [address] Apr, [facility] [address] [id number] [place] [address] Mar, [facility] [address] [id number] [place] [address] Mar, [facility] [address] [id number] [place] [address] Mar, [facility] [address] [id number] [place] [address] Mar, [facility] [address] [id number] [place] [address] Feb, [facility] [address] [id number] [place] [id number] Jan, [facility] [address] [id number] [place] [address] Jan, [facility] [address] [id number] [place] [address] Dec, [facility] [address] [id number] [place] [address] Dec, [facility] [address] [id number] [place] [address] Dec, [facility] [address] [id number] [place] [id number] Dec, [facility] [address] [id number] [place] [address] Nov, [facility] [address] [id number] [place] [address] 14 Nov, 2012 [facility] [address] [id number] [place] [address] 12 Nov, 2012 [facility] [address] [id number] [place] [address] Nov, [facility] [address] [id number] [place] [address] Nov, [facility] [address] [id number] [place] [address] October, [facility] [address] [id number] [place] [address] October, [facility] [address] [id number] [place] [address] Aug, [facility] [address] [id number] [place] [address] Nov, IMMUNIZATIONS No Known Immunizations SOCIAL HISTORY [...] 04/2019 Hospitalization History gastric sleeve Hospitalization History [facility] Trouble with left shoulder blade 08/2017
--- OUTSIDE RECORDS SUMMARY | 2019-11-29 08:59 | XMS REPORT ---
Author Author Curt DIAZ [facility] Address [address] [place] [address] Care Team Providers Care Hot Frame Tender Name Role Phone CHRIS DIAZ Unavailable PROBLEMS Type Condition ICD9-CM Code SXK96-GX Code Onset Dates Condition S tatus SNOMED Code Problem Edema R60.9 Active 405762146 Problem Morbid obesity E66.01 Active 42692 6002 Problem Metabolic syndrome E88.81 Active 2 00645841 Problem Renal insufficiency N28.9 Active 464898596 Problem Vitamin D deficiency E55.9 Active 03853022 Problem Severe episode of recurrent major depressive disorder, without psychotic features F33.2 Active 82484776 Problem DANIELA (generalized anxiety disorder) F41.1 Active 57739805 Problem Mixed obsessional thoughts and acts F42.2 Active 68150236 Problem Chronic fatigue R53.82 Active 8422 9001 Problem Other chronic pain G89.29 Active 8 7522102 Problem Borderline personality disorder F60.3 Active 07899855 Problem Attachment disorder F94.1 Active Problem Sciatica, right side M54.31 Active [id number] Problem Insomnia G47.00 Active 989355928 Problem Anxiety F41.9 Active 72571218 Problem BMI 45.0-49.9, adult Z68.42 Active 296514956 Problem Hyperlipemia E78.5 Active 8883872 4 Problem Benign essential hypertension I10 Active 5634148 Problem Callous ulcer, limited to breakdown of skin L98.49 1 Active Problem Hammer toe of right foot M20.41 Activ e 912564906 Problem Hammer toe of second toe of right foot M20.41 Active 375810345 Problem Falling episodes R29.6 Active 161 764278 ALLERGIES No Information ENCOUNTERS Encounter Location Date Diagnosis [facility] [address] [facility] [id number] [place] [address] Dec, [facility] [id number] [place] [address] 15 Dec, 2019 [facility] [address] [id number] [id number] 14 Dec, 2019 [facility] [address] [address] Dec, [facility] [address] [address] Nov, [facility] [address] [address] Nov, [facility] [address] [address] October, [facility] [address] [address] October, [facility] [address] [address] Sep, [facility] [address] [address] Sep, [facility] [address] [address] Sep, [facility] [address] [address] Sep, [facility] [address] [place], [place] [address] [place]86[place] [id number] Aug, Dizzy R42 ; Weight gain R63.5 ; Benign e ssential hypertension I10 ; Falling episodes R29.6 and History of gastric bypass Z98.84 [facility] [address] [address] 14 Aug, 2019 [facility] [address] [address] 13 Aug, 2019 [facility] [address] [address] Aug, DANIELA (generalized anxiety disorder) F41.1 ; Severe episode of recurrent major depressive disorder, without psychotic features F33.2 ; Mixed obsessional thoughts and acts F42.2 and Borderline personality disorder F60.3 [facility] [address] [id number] [facility] [id number] Aug, [facility] [address] [id number] [facility] [id number] Aug, [facility] [address] [id number] Aug, [facility] [address] [id number] [facility] [id number] Aug, [facility] [address] [id number] [id number] Aug, [facility] [address] [address] Aug, [facility] [address] [id number] [id number] Aug, Severe episode of recurrent major depres sive disorder, without psychotic features F33.2 ; Borderline personality disorder F60.3 ; Anxiety F41.9 and Attachment disorder F94.1 [place] [address] [address] Jul, [facility] [address] [address] Jul, DANIELA (generalized anxiety disorder) F41.1 ; Severe episode of recurrent major depressive disorder, without psychotic features F33.2 ; Mixed obsessional thoughts and acts F42.2 and Borderline personality disorder F60.3 [facility] [address] [id number][place] [id number] Jul, [facility] [address] [address] 17 Jul, 2019 [facility] [address] [id number] 14 Jul, 2019 [facility] [address] [id number] 12 Jul, 2019 [place] [address] [address] Jul, [place] [address] [id number] Jun, DANIELA (generalized anxiety disorder) F41.1 ; Severe episode of recurrent major depressive disorder, without psychotic features F33.2 ; Mixed obsessional thoughts and acts F42.2 and Borderline personality disorder F60.[address] [id number] [place] [id number] Jun, [address] [facility]OSPITALRC04397[place] [id number] Jun, [place] [address] [address] Jun, [place] [address] [address] Jun, DANIELA (generalized anxiety disorder) F41.1 ; Severe episode of recurrent major depressive disorder, without psychotic features F33.2 ; Mixed obsessional thoughts and acts F42.2 and Borderline personality disorder F60.[address] [id number][place] [id number] Jun, [address] [id number] [id number] Jun, [address] [id number] [place] [id number] Jun, [address] [id number][place] [id number] Jun, Benign essential hypertension I10 ; Morb id obesity E66.01 ; Severe episode of recurrent major depressive disorder, without psychotic features F33.2 ; Excess skin L98.7 and Hyperlipemia E78.5 [place] [address] [address] Jun, [place] [address] [address] May, [place] [id number] [place] [address] May, Severe episode of recurrent major depres sive disorder, without psychotic features F33.2 ; Mixed obsessional thoughts and acts F42.2 ; DANIELA (generalized anxiety disorder) F41.1 and Borderline personality disorder F60.3 [facility] [address] [address] May, [facility] [address] [address] May, DANIELA (generalized anxiety disorder) F41.1 ; Severe episode of recurrent major depressive disorder, without psychotic features F33.2 ; Mixed obsessional thoughts and acts F42.2 and Borderline personality disorder F60.3 [facility] [address] [address] May, [facility] [address] [address] May, [facility] [address] [address] May, Severe episode of recurrent major depres sive disorder, without psychotic features F33.2 ; Mixed obsessional thoughts and acts F42.2 ; Borderline personality disorder F60.3 and DANIELA (generalized anxiety disorder) F41.1 [facility] [address] [facility] [place] [address] May, Caries K02.9 [facility] [address] [id number] [id number] May, Benign essential hypertension I10 [facility] [address] [id number] [place] [id number] Apr, [facility] [address] [id number] [id number] Apr, Benign essential hypertension I10 [facility] [address] [address] Apr, Borderline personality disorder F60.3 ; DANIELA (generalized anxiety disorder) F41.1 ; Mixed obsessional thoughts and acts F42.2 and Severe episode of recurrent major depressive disorder, without psychotic features F33.2 [facility] [address] [id number] [place] [id number] Apr, [facility] [address] [id number] [facility] [id number] Apr, Benign essential hypertension I10 [facility] [address] [id number] Apr, Severe episode of recurrent major depres sive disorder, without psychotic features F33.2 ; DANIELA (generalized anxiety disorder) F41.1 ; Borderline personality disorder F60.3 and Mixed obsessional thoughts and acts F42.2 [facility] [address] [id number] Apr, Dental examination Z01.20 [facility] [address] [id number] Apr, Caries K02.9 and Dental examination Z01. 20 [facility] [address] [address] Apr, DANIELA (generalized anxiety disorder) F41.1 ; Severe episode of recurrent major depressive disorder, without psychotic features F33.2 ; Mixed obsessional thoughts and acts F42.2 and Borderline personality disorder F60.3 [facility] [address] [address] Mar, Severe episode of recurrent major depres sive disorder, without psychotic features F33.2 ; Mixed obsessional thoughts and acts F42.2 ; Borderline personality disorder F60.3 and DANIELA (generalized anxiety disorder) F41.1 [facility] [address] [address] Mar, Severe episode of recurrent major depres sive disorder, without psychotic features F33.2 ; Mixed obsessional thoughts and acts F42.2 ; DANIELA (generalized anxiety disorder) F41.1 and Borderline personality disorder F60.3 [facility] [address] [id number] Mar, Dental examination Z01.20 and Caries K02 .9 [address]757[place] [id number] Mar, Benign essential hypertension I10 and Fa lling episodes R29.6 [facility] [address] [address] Mar, [place] [address] [address] Mar, Severe episode of recurrent major depres sive disorder, without psychotic features F33.2 ; Mixed obsessional thoughts and acts F42.2 ; Borderline personality disorder F60.3 and DANIELA (generalized anxiety disorder) F41.1 [place] [address] [address] Mar, [place] [address] [address] Mar, [address]07757[place] [address] Mar, [place] [address] [address] Mar, Severe episode of recurrent major depres sive disorder, without psychotic features F33.2 ; Mixed obsessional thoughts and acts F42.2 ; Borderline personality disorder F60.3 and DANIELA (generalized anxiety disorder) F41.1 [place] [address] [address] Mar, [facility] [id number] [place] [id number] Feb, Dental examination Z01.20 and Periodonti tis K05.30 [facility] [address] [place] [address] Feb, DANIELA (generalized anxiety disorder) F41.1 ; Severe episode of recurrent major depressive disorder, without psychotic features F33.2 ; Mixed obsessional thoughts and acts F42.2 and Borderline personality disorder F60.3 [address]07757[place] [id number] 30 Feb, 2019 Acute pain of right knee M25.561 ; Fall, initial encounter W19.XXXA ; Benign essential hypertension I10 and Edema R60.9 [place] [address] [address] Feb, [place] [address] [address] Feb, DANIELA (generalized anxiety disorder) F41.1 ; Severe episode of recurrent major depressive disorder, without psychotic features F33.2 ; Mixed obsessional thoughts and acts F42.2 and Borderline personality disorder F60.3 [place] [address] [address] Feb, [place] [address] [address] Jan, [place] [address] [address] Jan, [place] [address] [address] Jan, [facility] [address] [id number] [id number] Jan, Callus of heel L84 ; Fissure in skin R23 .4 and Hammer toe of second toe of right foot M20.41 [facility] [address] [id number] [id number] Jan, [place] [address] [address] Jan, [place] [address] [address] Jan, [place] [address] [address] Jan, Severe episode of recurrent major depres sive disorder, without psychotic features F33.2 ; DANIELA (generalized anxiety disorder) F41.1 ; Mixed obsessional thoughts and acts F42.2 and Borderline personality disorder F60.3 [place] [id number] [place] [address] Jan, [facility] [address] [id number] [place] [id number] Jan, Benign essential hypertension I10 [facility] [address] [id number] [facility] [place] [id number] Dec, Callous ulcer, limited to breakdown of s kin L98.491 and Morbid obesity E66.01 [place] [address] [address] Dec, [facility] [address] [address] Dec, [place] [address] [address] Dec, [place] [address] [address] Dec, [place] [address] [address] Dec, Severe episode of recurrent major depres sive disorder, without psychotic features F33.2 [place] [address] [address] Dec, DANIELA (generalized anxiety disorder) F41.1 ; Severe episode of recurrent major depressive disorder, without psychotic features F33.2 ; Mixed obsessional thoughts and acts F42.2 and 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 [facility] [address] [id number] [place] [id number] Dec, Morbid obesity E66.01 [facility] [address] [address] Dec, [facility] [address] [address] Dec, [facility] [address]ICEA [address] [place] [address] Nov, [facility] [address] [id number] [place] [id number] Nov, [facility] [address] [address] Nov, [facility] [address] [address] Nov, [facility] [address] [address] Nov, DANIELA (generalized anxiety disorder) F41.1 ; Severe episode of recurrent major depressive disorder, without psychotic features F33.2 ; Mixed obsessional thoughts and acts F42.2 and 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 A[address] [id number] [facility] [id number] October, Morbid obesity E66.[address] [id number] [id number] October, Benign essential hypertension I10 and Mo rbid obesity E66.01 [facility] [address] [id number] COUNTY [facility] [id number] October, [facility] [address] [address] October, Severe episode of recurrent major depres sive disorder, without psychotic features F33.[address] [id number] [id number] October, Morbid obesity E66.[address] [id number] [facility] [id number] October, [facility] [id number] [place] [address] October, Severe episode of recurrent major depres sive disorder, without psychotic features F33.2 ; DANIELA (generalized anxiety disorder) F41.1 ; Mixed obsessional thoughts and acts F42.2 and 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 [id number], [place] [id number] October, Morbid obesity E66.01 [facility] [address] [facility] [place] [id number] Sep, Dental examination Z01.20 [place] [id number] [place] [id number] Sep, [facility] [address] [facility] [id number] [address] [place] [address] Sep, Sore in mouth K13.79 and Mor bid obesity E66.01 [facility] [address] [address] Sep, Dental examination Z01.20 [facility] [address] [address] Sep, Anxiety disorder, unspecified F41.9 [place] [address] [facility]ITALMR86865LOW[place] [id number] Sep, Mouth ulcer K12.[address] [place] [address] [id number] COUNTY [facility] [id number] Sep, Morbid obesity E66.[address] [id number] COUNTY [facility] [id number] Sep, Allergic rhinitis, unspecified seasonali ty, unspecified trigger J30.9 and Shortness of breath R06.[address] [id number] COUNTY [facility] [address] Sep, 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 [place] [address], [place] [id number] Aug, Mouth abscess K12.2 ; Mouth ulcer K12.1 ; Bloating R14.0 and Morbid obesity E66.[address] [facility] HOSPITALMI35858IOWATONNA[place] [id number] Aug, [facility] [address] [facility] HOSPITALNR54274[place] [id number] Aug, [address] AVSA[facility] JOSEPH [id number] [place] [address], [place] [id number] Jul, Major depressive disorder, recurrent, mo derate F33.1 ; Abscess of arm, left L02.414 ; BMI 45.0-49.9, adult Z68.42 and Morbid obesity E66.[address] [facility] HOSPITALUX68286[place] [id number] Jul, [facility] [place] [id number] [place] [address] [id number] Jul, [facility] [place] [facility] [id number] [place] [address] [id number] Jun, Pain in right knee M25.561 and Other chr onic pain G89.[address] [id number] [place] [id number] Jun, Benign essential hypertension I10 ; BMI 45.0-49.9, adult Z68.42 ; Morbid obesity E66.01 ; Vitamin D deficiency E55.9 ; Insomnia G47.00 ; 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 ; Edema R60.9 ; Recurrent major depressive disorder, in partial remission F33.41 ; Chronic fatigue R53.82 ; Acute pain of right knee M25.561 ; Metabolic syndrome E88.81 and Irritable mood R45.4 [place] [address] [id number] [place] [address] Jun, [address] [place] [id number] Jun, Irritable mood R45.4 [place] [address] [id number] [place] [address] May, [facility] [address] [address] May, [facility] [address] [address] May, Recurrent major depressive disorder, in partial remission F33.41 ; Mixed obsessional thoughts and acts F42.2 ; 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 2 ; Recurrent major depressive disorder, in partial remission F33.41 ; DANIELA (generalized anxiety disorder) F41.1 and BMI 45.0-49.9, adult Z68.42 [facility] [address] [address] [id number] [facility] [id number] Mar, [facility] [place] [address] [id number] [facility] [id number] Mar, BMI 45.0-49.9, adult Z68.42 ; Instabilit y of right knee joint M25.361 and Rash R21 [facility] [address] [address] Jan, Recurrent major depressive disorder, in partial remission F33.41 ; Mixed obsessional thoughts and acts F42.2 and BMI 45.0-49.9, adult Z68.42 [facility] [place] [address] [id number] [facility] [id number] Jan, [facility] [place] [address] [id number] [place] [id number] Jan, Benign essential hypertension I10 ; BMI 45.0-49.9, adult Z68.42 ; Metabolic syndrome E88.81 and Allergic rhinitis, unspecified seasonality, unspecified trigger J30.9 [facility] [id number] [place] [address] Dec, DANIELA (generalized anxiety disorder) F41.1 and Depressive disorder, not elsewhere classified F32.9 [facility] [address] [id number] [place] [id number] Dec, Recurrent major depressive disorder, in partial remission F33.41 [facility] [place] [address] [id number] [place] [id number] Dec, [facility] [place] [address] [id number] [place] [id number] Nov, [facility] [place] [address] [id number] [place] [id number] Nov, Recurrent major depressive disorder, in partial remission F33.41 [facility] [id number] [place] [address] Nov, Recurrent major depressive disorder, in partial remission F33.41 ; Mixed obsessional thoughts and acts F42.2 ; DANIELA (generalized anxiety disorder) F41.1 and BMI 45.0-49.9, adult Z68.42 [facility] [place] [address] [id number] [place] [id number] Nov, [facility] [place] [address] [id number] [place] [id number] Nov, Other conjunctivitis of both eyes H10.89 and Sciatica, right side M54.31 [facility] [place] [address] [id number] [place] [id number] Nov, [facility] [place] [address] [id number] [place] [id number] Nov, [facility] [place] [address] [id number] [place] [id number] October, [facility] [address] [id number] [place] [id number] October, [facility] [address] [facility] [id number] [place] [address] October, BMI 45.0-49.9, adult Z68.42 ; Mixed obse ssional thoughts and acts F42.2 ; Recurrent major depressive disorder, in partial remission F33.41 and DANIELA (generalized anxiety disorder) F41.[address] [id number] [place] [id number] October, Benign essential hypertension I10 ; Morb id obesity E66.01 and BMI 45.0- 49.9, adult Z68.42 [facility] [address] [id number] [place] [id number] Sep, [facility] [address] [id number] [place] [id number] Sep, [facility] [address] [address] [id number] [place] [id number] Sep, [facility] [address] [address] [id number] [place] [id number] Sep, Hospital discharge follow-up Z09 ; Aller gic rhinitis, unspecified seasonality, unspecified trigger J30.9 and Shortness of breath R06.02 [facility] [address] [id number] [place] [id number] Sep, Recurrent major depressive disorder, in partial remission F33.41 [facility] [address] [id number] [place] [id number] Aug, Irritable mood R45.4 [facility] [address] [id number] [place] [address] Aug, [facility] [address] [id number] [place] [id number] Jul, Benign essential hypertension I10 ; Robert a R60.9 and Impacted cerumen of left ear H61.22 [place] [id number] [place] [address] 14 Jul, 2017 Major depression F32.9 ; Recurrent major depressive disorder, in partial remission F33.41 and Anxiety F41.9 [place] [id number] [place] [address] Jun, Major depression F32.9 ; Recurrent major depressive disorder, in partial remission F33.41 and Anxiety F41.9 [facility] [address] [id number] [place] [employer] , [place] [id number] Jun, Major depression F32.9 ; Morbid obesity E66.01 ; Irritable mood R45.4 ; Hand weakness R29.898 and Vitamin D deficiency E55.9 [facility] [address] [id number] [place] [employer] , [place] [id number] Jun, [facility] [address] [id number] [place] [employer] , [place] [id number] May, Major depression F32.9 [place] [address] [place] [id number] [place] [address] May, Major depression F32.9 [facility] [address] [id number] [id number] May, BMI 50.0-59.9, adult Z68.43 ; Major depr ession F32.9 ; Anxiety F41.9 ; Hypertrophic toenail L60.2 and Pain of left great toe M79.675 [facility] [address] [id number] [place] [employer] , [place] [id number] May, Recurrent major depressive disorder, in partial remission F33.41 [place] [address] [address] Apr, [facility] [address] [id number] [place] [employer] [place] [id number] Apr, [place] [address] [address] Apr, Major depression F32.9 [facility] [address] [id number] [place] [id number] Apr, Severe episode of recurrent major depres sive disorder, without psychotic features F33.2 ; Anxiety F41.9 and Insomnia G47.00 [facility] [address] [id number] [place] [id number] Apr, [facility] [address] [address] Apr, [facility] [place] [address] [id number] [place] [id number] Apr, [facility] [place] [address] [id number] [place] [id number] Mar, [facility] [address] [id number] [place] [id number] Mar, Allergic conjunctivitis of both eyes H10 .13 [place] [address] [address] Mar, Major depression F32.9 [facility] [address] [id number] [place] [id number] Mar, Metabolic syndrome E88.81 ; History of g astric bypass Z98.890 ; Benign essential hypertension I10 ; Allergic conjunctivitis of both eyes H10.13 and Morbid obesity E66.01 [place] [address] [address] Mar, Major depression F32.9 [facility] [address] [id number] [place] [id number] Feb, [place] [address] [address] Feb, Major depression F32.9 [facility] [address] [id number] [place] [id number] Feb, Subacute maxillary sinusitis J01.00 and Bronchitis J40 [facility] [address] [address] Feb, Major depressive disorder, recurrent, mo derate F33.1 [facility] [address] [id number] [place] [id number] Jan, [facility] [address] [id number] [place] [id number] Jan, Acute non-recurrent maxillary sinusitis J01.00 and Skin tag L91.8 [facility] [address] [id number] [place] [id number] Jan, Cough R05 and Sinus congestion R09.81 [facility] [address] [id number] [place] [id number] Jan, [place] [address] [id number] [place] [id number] Jan, Benign essential hypertension I10 ; Hist ory of gastric bypass Z98.890 and Nausea and vomiting in adult R11.2 [place] [address] [address] Jan, Major depressive disorder, recurrent, mo derate F33.1 [facility] [address] [address] Dec, Insomnia G47.00 ; Recurrent major depres sive disorder, in partial remission F33.41 and Morbid obesity E66.01 [facility] [address] [id number] [place] [id number] Dec, [place] [address] [id number] [place] [id number] Dec, Chronic bacterial conjunctivitis of left eye H10.402 [facility] [address] [id number] [place] [id number] Nov, [facility] [address] [id number] [place] [id number] Nov, Dental examination Z01.20 [facility] [place] [address] [id number] [place] [id number] Nov, Benign essential hypertension I10 ; Hist ory of gastric bypass Z98.890 and Nausea and vomiting in adult R11.2 [place] [address] [address] Nov, Major depressive disorder, recurrent, mo derate F33.1 ; Generalized anxiety disorder F41.1 and Insomnia due to other mental disorder F51.05 [place] [address] [address] Nov, Recurrent major depressive disorder, in partial remission F33.41 ; Insomnia G47.00 and Morbid obesity E66.01 [facility] [address] [facility] [place] [address] October, Abscess of left arm L02.414 [place] [address] [address] October, Morbid obesity E66.01 ; Major depression F32.9 and Recurrent major depressive disorder, in partial remission F33.41 [facility] [address] [facility] [id number] Sep, Benign essential hypertension I10 ; Morb id obesity E66.01 ; S/P gastric bypass Z98.84 ; Abscess L02.91 and Chronic bacterial conjunctivitis of left eye H10.402 [facility] [address] [facility] [address] Sep, Dental examination Z01.[address] [address] Sep, Morbid obesity E66.01 ; Major depression F32.9 and Recurrent major depressive disorder, in partial remission F33.41 [place] [address] [address] Jul, [address] [address] Jul, Major depressive disorder, recurrent, mo derate F33.1 [place] [address] [address] Jul, Major depressive disorder, recurrent, mo derate F33.1 and Generalized anxiety disorder F41.1 [facility] [address] [id number] [place] [id number] Jul, Cough R05 [place] [address] [address] Jul, Morbid obesity E66.01 ; Major depression F32.9 and Recurrent major depressive disorder, in partial remission F33.41 [facility] [place] [address] [id number] [place] [id number] Jul, [facility] [place] [address] [id number] [place] [id number] Jul, [facility] [place] [address] [id number] [place] [id number] Jul, Gastroenteritis K52.9 and Cough R05 [facility] [address] [id number] [place] [id number] Jun, Acute bacterial conjunctivitis of left e ye H10.32 [place] [address] [address] Jun, [place] [address] [address] Jun, Recurrent major depressive disorder, in partial remission F33.41 [place] [address] [address] May, Major depression F32.9 and Morbid obesit y E66.01 [place] [address] [address] May, [facility] [address] [id number] [place] [id number] May, Thrush B37.0 [place] [address] [address] Apr, Major depressive disorder, recurrent, mo derate F33.1 [place] [address] [address] Apr, Insomnia G47.00 ; Major depression F32.9 and Recurrent major depressive disorder, in partial remission F33.41 [place] [address] [address] Apr, [place] [address] [address] Apr, Major depression F32.9 and Recurrent romi or depressive disorder, in partial remission F33.41 [facility] [address] [id number] [place] [id number] Mar, Benign essential hypertension I10 ; Morb id obesity E66.01 ; Impacted cerumen of both ears H61.23 ; Laceration of finger of right hand, initial encounter S61.219A and Encounter for immunization Z23 [place] [address] [address] 17 Mar, 2016 [place] [address] [address] Mar, [place] [address] [address] Mar, [facility] [address] [id number] [id number] Feb, Nausea R11.0 ; Blood in the stool K92.1 and Benign essential hypertension I10 [place] [address] [address] Feb, Major depression F32.9 and Recurrent romi or depressive disorder, in partial remission F33.41 [facility] [place] [address] [id number] [place] [id number] Feb, [facility] [place] [address] [id number] [place] [id number] Feb, Recurrent major depressive disorder, in partial remission F33.41 [facility] [place] [address] [id number] [place] [id number] Jan, [facility] [place] [address] [id number] [place] [id number] Jan, Benign essential hypertension I10 ; Robert a R60.9 and Hyperlipidemia, unspecified hyperlipidemia type E78.5 [facility] [address] [id number] [facility] [id number] Jan, Recurrent major depressive disorder, in partial remission F33.41 [facility] [address] [facility] [place] [id number] Jan, [facility] [address] [id number] [place] [facility] [id number] Jan, [facility] [address] [id number] [id number] Jan, [facility] [address] [address] Jan, [facility] [address] [address] Dec, [facility] [address] [address] Nov, [facility] [address] [address] Nov, Major depression F32.9 [facility] [address] [address] Nov, [facility] [address] [address] Nov, [facility] [address] [address] Nov, Major depressive disorder, recurrent epi sode, mild F33.0 and Anxiety F41.9 [facility] [address] [id number] [place] [id number] Nov, [facility] [address] [id number] [place] [id number] October, Left elbow pain M25.522 and Other season al allergic rhinitis J30.2 [facility] [address] [id number] [id number] October, [place] [address] [address] October, Major depressive disorder, recurrent, mo derate F33.1 [place] [address] [address] October, Major depression F32.9 [place] [address] [address] Sep, [place] or callus L84 and Onychomycosis B35 .1 [place] [address] [address] Sep, Major depressive disorder, recurrent, mo derate F33.1 [place] [address] [address] Sep, Major depression F32.9 [place] [address] [address] Sep, Moderate episode of recurrent major depr essive disorder F33.1 [facility] [address] [id number] [employer] [place] [id number] Sep, Muscle strain T14.8 [place] [address] [address] Aug, Major depression F32.9 [place] [address] [address] Aug, Major depression F32.9 [place] [address] [address] Jul, Morbid obesity E66.01 and Major depressi on F32.9 [place] [address] [address] Jul, Depression, major, recurrent, moderate F 33.1 [facility] [place] [address] [id number] [employer] [place] [id number] Jul, [place] [address] [address] Jul, [place] [address] [address] 16 Jul, 2015 Major depression F32.9 and Morbid obesit y E66.01 [place] [address] [place] [id number] 11 Jul, 2015 Type II diabetes mellitus E11.9 ; Callus of foot L84 ; Benign essential hypertension I10 and Renal insufficiency N28.9 [place] [address] [address] 09 Jul, 2015 Depression, major, recurrent, moderate F 33.1 [place] [address] [address] 05 Jul, 2015 Major depression F32.9 [place] [address] [address] Jul, [place] [address] [address] Jun, Major depression F32.9 [place] [address] [address] Jun, Major depressive disorder, recurrent, mo derate F33.1 [place] [address] [address] Jun, [place] [address] [address] Jun, Major depressive disorder, recurrent, mo derate F33.1 and Major depression F32.9 [facility] [address] [facility] [address] Jun, Type II diabetes mellitus E11.9 [place] [address] [address] Jun, Depression, major, recurrent, moderate F 33.1 [place] [address] [address] May, Major depressive disorder, recurrent, mo derate F33.1 [facility] [address] [address] May, [place] [address] May, Edema R60.[address] [address] May, Insomnia G47.00 and Major depression F32 .[address] [id number] 15 May, 2015 Morbid obesity E66.01 ; Edema R60.9 ; Sh ortness of breath R06.02 ; Benign essential hypertension I10 and Renal insufficiency N28.9 [place] [address] May, Hyperlipemia 272.4 and Renal insufficien cy N28.[address] [address] Apr, Major depression F32.9 [place] [address] [address] Apr, [address] [address] Apr, Major depressive disorder, recurrent, mo derate F33.1 [address]757[place] [address] Apr, Type II diabetes mellitus E11.9 ; Benign essential hypertension I10 ; Edema R60.9 and Renal insufficiency N28.9 [facility] [address] [address] Mar, Major depressive disorder, recurrent, mo derate F33.1 [place] [address] [address] Mar, [facility] [address] [address] Mar, Major depression F32.9 [address]757[place] [address] 08 Mar, 2015 Morbid obesity E66.01 ; Benign essential hypertension I10 and Type II diabetes mellitus E11.[address] [address] 24 Feb, 2015 Major depressive disorder, recurrent, mo derate F33.[address] [address] Feb, Major depressive disorder, recurrent epi sode, in partial or unspecified remission 296.35 ; Anxiety state, unspecified 300.00 and Morbid obesity 278.[address] [address] Feb, [address] [id number] 16 Feb, 2015 Vomiting 787.03 and Viral syndrome 079.[address] [address] 15 Feb, 2015 Major depression, recurrent 296.30 ; Gen eralized anxiety disorder 300.02 and No condition on [place] II V71.[address] [id number] Feb, Skin tag 701.[address] [address] Feb, [address] [address] Jan, Depression, major, recurrent, moderate 2 96.32 [address] [place] [id number] Jan, Nausea and vomiting 787.01 ; Rib pain on right side 786.50 and Fall on or from sidewalk curb E880.[address] [address] Jan, [address] [address] Jan, Major depressive disorder, recurrent epi sode, in partial or unspecified remission 296.35 and Anxiety state, unspecified 300.00 [facility] [address] [place], [place] [address] [place] [address] Jan, [facility] [address] [place] [address] Jan, Depression, major, recurrent, moderate [address] [address] Jan, Major depression, recurrent 296.30 ; No condition on [place] II V71.09 and No condition on axis III V71.09 [address]757[place] [address] Jan, Drug-induced nausea and vomiting 787.[address] [address] Jan, Depression, major, recurrent, moderate [address] [address] Dec, Depression, major, recurrent, moderate 2 96.32 [address] [place]97620[place] [address]88 Dec, Morbid obesity 278.01 ; Metabolic syndro me 277.7 ; Hyperlipemia 272.4 ; Benign essential hypertension 401.1 ; Dietary counseling V65.3 ; Exercise counseling V65.41 and Inflamed skin tag 701.[address] [address] Dec, Depression, major, recurrent, moderate [address] [address] Dec, [address] [address] Dec, Major depression, recurrent 296.30 ; Anx iety, generalized 300.02 and No condition on [place] II V71.[address] [place] [address] Dec, Depression, major, recurrent, moderate 2 96.32 [place] [address]01[address] Dec, Major depressive disorder, recurrent epi sode, moderate 296.32 [place] [address]01[address] Dec, Depression, major, recurrent, moderate 2 96.32 [place] 830172[address] Dec, Depression, major, recurrent, moderate 2 96.32 [place] [address] Dec, Depression, major, recurrent, moderate 2 96.32 [place] 8301[address] Dec, Depression, major, recurrent, moderate 2 96.32 [place] 8301[address] Nov, Depression, major, recurrent, moderate [address] [address] Nov, Major depression 296.20 ; Social phobia 300.23 and No condition on [place] II V71.[address] [address] Nov, Depression, major, recurrent, moderate [address] [address] Nov, Major depressive disorder, recurrent epi sode, moderate 296.32 and Generalized anxiety disorder 300.02 [place] [address] Nov, Depression, major, recurrent, moderate 2 96.32 [place] 8301[address] Nov, Depression, major, recurrent, moderate 2 96.32 [facility] [address] [id number] [place] [address] 07 Oct, 2014 Generalized anxiety disorder 300.02 ; No condition on [place] II V71.09 and Major depressive disorder, recurrent 296.30 [facility] [id number] [place] [address] 14 Sep, 2014 [facility] [id number] [place] [address] 13 Sep, 2014 [facility] [id number] [place] [address] 24 Aug, 2014 [facility] [id number] [place] [address] 24 Aug, 2014 [facility] [id number] [place] [address] 23 Aug, 2014 [facility] [id number] [place] [address] 23 Aug, 2014 [facility] [id number] [place] [address] 20 Aug, 2014 [facility] [id number] [place] [address] 20 Aug, 2014 [facility] [id number] [place] [address] 20 Aug, 2014 [facility] [id number] [place] [address] 20 Aug, 2014 [facility] [id number] [place] [address] 13 Aug, 2014 [facility] [id number] [place] [address] 13 Aug, 2014 [facility] [id number] [place] [address] 13 Aug, 2014 [facility] [id number] [place] [address] 13 Aug, 2014 [facility] [id number] [place] [address] Aug, [facility] [address] [facility] [id number] [place] [address] Aug, [facility] [address] [facility] [id number] [place] [address] Aug, [facility] [address] [facility] [id number] [place] [address] Aug, [facility] [address] [id number] [place] [address] Aug, [facility] [address] [facility] [id number] [place] [address] Aug, [facility] [address] [id number] [place] [address] Jul, [facility] [address] [id number] [place] [address] Jul, [facility] [address] [id number] [place] [address] Jul, [facility] [address] [id number] [place] [address] Jul, [facility] [address] [id number] [place] [address] Jul, [facility] [address] [id number] [place] [address] Jul, [facility] [address] [id number] [place] [address] Jun, [facility] [address] [id number] [place] [address] Jun, [facility] [address] [id number] [place] [address] Jun, [facility] [address] [id number] [place] [address] Jun, [facility] [address] [id number] [place] [address] Jun, [facility] [address] [id number] [place] [address] Jun, [facility] [address] [id number] [place] [address] Jun, [facility] [address] [id number] [place] [address] Jun, [facility] [address] [id number] [place] [address] Jun, [facility] [address] [id number] [place] [address] Jun, [facility] [address] [id number] [place] [address] Jun, [facility] [address] [id number] [place] [address] Jun, [facility] [address] [place] [id number] Jun, [facility] [address] [id number] [place] [address] Jun, [facility] [address] [id number] [place] [address] Jun, [facility] [address] [id number] [place] [address] Jun, [facility] [address] [id number] [place] [address] May, [facility] [address] [id number] [place] [address] May, [facility] [address] [id number] [place] [address] May, [facility] [address] [id number] [place] [address] May, [facility] [address] [id number] [place] [address] Apr, [facility] [address] [id number] [place] [address] Apr, [facility] [address] [id number] [place] [address] Apr, [facility] [address] [id number] [place] [address] Apr, [facility] [address] [id number] [place] [address] Apr, [facility] [address] [id number] [place] [address] Apr, [facility] [address] [id number] [place] [address] Apr, [facility] [address] [id number] [place] [address] Apr, [facility] [address] [id number] [place] [address] Apr, [facility] [address] [id number] [place] [address] Apr, [facility] [address] [id number] [place] [address] Apr, [facility] [address] [id number] [place] [address] Apr, [facility] [address] [id number] [place] [address] Apr, [facility] [address] [id number] [place] [address] Apr, [facility] [address] [id number] [place] [address] Apr, [facility] [address] [id number] [place] [address] Apr, [facility] [address] [id number] [place] [address] Apr, [facility] [address] [id number] [place] [address] Apr, [facility] [address] [id number] [place] [address] Apr, [facility] [address] [id number] [place] [address] Apr, [facility] [address] [facility] [id number] [place] [address] Mar, [facility] [address] [id number] [place] [address] Mar, [facility] [address] [id number] [place] [address] Mar, [facility] [address] [facility] [id number] [place] [address] Mar, [facility] [address] [id number] [place] [address] Mar, [facility] [address] [id number] [place] [address] Mar, [facility] [address] [id number] [place] [address] Mar, [facility] [address] [id number] [place] [address] Mar, [facility] [address] [id number] [place] [address] Mar, [facility] [address] [id number] [place] [address] Mar, [facility] [address] [id number] [place] [address] Feb, [facility] [address] [id number] [place] [address] Feb, [facility] [address] [id number] [place] [address] Feb, [facility] [address] [id number] [place] [address] Feb, [facility] [address] [id number] [place] [address] Jan, [facility] [address] [id number] [place] [address] Jan, [facility] [address] [id number] [place] [address] Jan, [facility] [address] [facility] [id number] [place] [address] Jan, [facility] [address] [id number] [place] [address] Jan, [facility] [address] [facility] [id number] [place] [address] Jan, [facility] [address] [id number] [place] [address] Dec, [facility] [address] [id number] [place] [address] Dec, [facility] [address] [id number] [place] [address] Nov, [facility] [address] [id number] [place] [address] Nov, [facility] [address] [id number] [place] [address] Nov, [facility] [address] [id number] [place] [address] Nov, [facility] [address] [id number] [place] [address] Nov, [facility] [address] [id number] [place] [address] Nov, [facility] [address] [id number] [place] [address] Sep, [facility] [address] [id number] [place] [address] Sep, [facility] [address] [id number] [place] [address] Sep, [facility] [address] [id number] [place] [address] Sep, [facility] [address] [id number] [place] [address] Aug, [facility] [address] [id number] [place] [address] Aug, [facility] [address] [id number] [place] [address] Jul, [facility] [address] [id number] [place] [address] Jul, [facility] [address] [id number] [place] [address] Jun, [facility] [address] [id number] [place] [address] Jun, [facility] [address] [id number] [place] [address] Jun, [facility] [address] [id number] [place] [address] Jun, [facility] [address] [id number] [place] [address] May, [facility] [address] [id number] [place] [address] May, [facility] [address] [id number] [place] [address] May, [facility] [address] [id number] [place] [address] May, [facility] [address] [id number] [place] [address] May, [facility] [address] [id number] [place] [address] May, [facility] [address] [id number] [place] [address] Apr, [facility] [address] [id number] [place] [address] Apr, [facility] [address] [id number] [place] [address] 07 Apr, 2013 [facility] [address] [id number] [place] [address] Apr, [facility] [address] [id number] [place] [address] Mar, [facility] [address] [id number] [place] [address] Mar, [facility] [address] [id number] [place] [address] Mar, [facility] [address] [id number] [place] [address] Mar, [facility] [address] [id number] [place] [address] Feb, [facility] [address] [id number] [place] [id number] Jan, [facility] [address] [id number] [place] [address] Jan, [facility] [address] [id number] [place] [address] Dec, [facility] [address] [id number] [place] [address] Dec, [facility] [address] [id number] [place] [address] Dec, [facility] [address] [id number] [place] [id number] Dec, [facility] [address] [id number] [place] [address] Nov, [facility] [address] [id number] [place] [address] 14 Nov, 2012 [facility] [address] [id number] [place] [address] 12 Nov, 2012 [facility] [address] [id number] [place] [address] Nov, [facility] [address] [id number] [place] [address] Nov, [facility] [address] [id number] [place] [address] October, [facility] [address] [id number] [place] [address] October, [facility] [address] [id number] [place] [address] Aug, [facility] [address] [id number] [place] [address] Nov, IMMUNIZATIONS No Known Immunizations SOCIAL HISTORY [...] 04/2019 Hospitalization History gastric sleeve Hospitalization [facility] Trouble with left shoulder blade 08/2017
[2019-11-29] MEDS ORDERED: POVIDONE (BETADINE) OPHTH SOLN 5% 30 ML OP ONE (09:00)
[2019-11-29] MEDS ORDERED: LIDOCAINE PF 1% 2 ML VIAL IR PRN (09:00)
[2019-11-29] MEDS ORDERED: TIMOLOL MALEATE 0.5% 5 ML (TIMOPTIC) BTL OU PRN (09:00)
[2019-11-29] MEDS ORDERED: MOXIFLOXACIN OPHTH SOLN 5 MG/ML 0.3 ML SYRINGE OP ONE (09:00)
--- OUTSIDE RECORDS SUMMARY | 2019-11-29 09:00 | XMS REPORT ---
Author Author Curt DIAZ [facility] Address [address] [place] [address] Care Team Providers Care Physical Meteorologist Name Role Phone CHRIS DIAZ Unavailable PROBLEMS Type Condition ICD9-CM Code QQB90-FG Code Onset Dates Condition S tatus SNOMED Code Problem Edema R60.9 Active 710460917 Problem Morbid obesity E66.01 Active 93227 6002 Problem Metabolic syndrome E88.81 Active 2 09735254 Problem Renal insufficiency N28.9 Active 546605389 Problem Vitamin D deficiency E55.9 Active 80192372 Problem Severe episode of recurrent major depressive disorder, without psychotic features F33.2 Active 59889599 Problem DANIELA (generalized anxiety disorder) F41.1 Active 07401589 Problem Mixed obsessional thoughts and acts F42.2 Active 93083257 Problem Chronic fatigue R53.82 Active 8422 9001 Problem Other chronic pain G89.29 Active 8 5393135 Problem Borderline personality disorder F60.3 Active 43354807 Problem Attachment disorder F94.1 Active Problem Sciatica, right side M54.31 Active 706122723865516 Problem Insomnia G47.00 Active 434819514 Problem Anxiety F41.9 Active 59913710 Problem BMI 45.0-49.9, adult Z68.42 Active 675443659 Problem Hyperlipemia E78.5 Active 9387951 4 Problem Benign essential hypertension I10 Active 9394927 Problem Callous ulcer, limited to breakdown of skin L98.49 1 Active Problem Hammer toe of right foot M20.41 Activ e 880917996 Problem Hammer toe of second toe of right foot M20.41 Active 466990940 Problem Falling episodes R29.6 Active 161 050018 ALLERGIES No Information ENCOUNTERS Encounter Location Date Diagnosis [facility] [address] [place] [address] Dec, [facility] [address] [place] [address] 15 Dec, [address] [facility] [place] [address] [id number] [place] [id number] 14 Dec, 2019 [facility] [address] [place] [address] Dec, [facility] [id number] [place] [address] Nov, [facility] [address] [place] [address] Nov, [facility] [address] [place] [address] October, [facility] [address] [place] [address] October, [facility] [id number] [place] [address] Sep, [facility] [id number] [place] [address] Sep, [facility] [address] [place] [address] Sep, [facility] [place] [address] [id number] [place] [id number] Sep, [facility] [id number] [place] [address] Aug, [facility] [place] [address] [id number] [place] [id number] 17 Aug, 2019 [facility] [id number] [place] [address] 13 Aug, 2019 [facility] [id number] [place] [address] 11 Aug, [address] [facility] [address] [address] [id number] [place] [id number] Aug, [facility] [address] [address] [id number] [place] [id number] Aug, [facility] [address] [address] Aug, [facility] [address] [id number] [place] [id number] Aug, [facility] [address] [id number] [place] [address] Aug, [facility] [address] [address] Aug, [facility] [address] [place] [address] AVE [id number] [place] [id number] Aug, Severe episode of recurrent major depres sive disorder, without psychotic features F33.2 ; Borderline personality disorder F60.3 ; Anxiety F41.9 and Attachment disorder F94.1 [address] [address] [address] Jul, [facility] [address] [id number] Jul, DANIELA (generalized anxiety disorder) F41.1 ; Severe episode of recurrent major depressive disorder, without psychotic features F33.2 ; Mixed obsessional thoughts and acts F42.2 and Borderline personality disorder F60.3 [facility] [address] [place] [address] AVE [id number] [place] [id number] Jul, [facility] [address] [address] 17 Jul, 2019 [facility] [address] [address] 14 Jul, 2019 [facility] [address] [address] 12 Jul, 2019 [facility] [address] [address] Jul, [facility] [address] [id number] Jun, DANIELA (generalized anxiety disorder) F41.1 ; Severe episode of recurrent major depressive disorder, without psychotic features F33.2 ; Mixed obsessional thoughts and acts F42.2 and Borderline personality disorder F60.[address] [id number] [place] [id number] Jun, [facility] [address] [id number] [place] [id number] Jun, [place] [address] [id number] Jun, [place] [address] [id number] Jun, DANIELA (generalized anxiety disorder) F41.1 ; Severe episode of recurrent major depressive disorder, without psychotic features F33.2 ; Mixed obsessional thoughts and acts F42.2 and Borderline personality disorder F60.[address] [id number] [id number] Jun, [address] [id number] [place] [id number] Jun, [address] [id number] [place] [id number] Jun, [address] [id number] [id number] Jun, Benign essential hypertension I10 ; Morb id obesity E66.01 ; Severe episode of recurrent major depressive disorder, without psychotic features F33.2 ; Excess skin L98.7 and Hyperlipemia E78.5 [place] [address] [address] Jun, [facility] [address] [address] May, [place] [address] [address] May, Severe episode of recurrent major depres sive disorder, without psychotic features F33.2 ; Mixed obsessional thoughts and acts F42.2 ; DANIELA (generalized anxiety disorder) F41.1 and Borderline personality disorder F60.3 [place] [address] [address] May, [facility] [address] [address] May, DANIELA (generalized anxiety disorder) F41.1 ; Severe episode of recurrent major depressive disorder, without psychotic features F33.2 ; Mixed obsessional thoughts and acts F42.2 and Borderline personality disorder F60.3 [facility] [address] [address] May, [facility] [address] [address] May, [facility] [address] [address] May, Severe episode of recurrent major depres sive disorder, without psychotic features F33.2 ; Mixed obsessional thoughts and acts F42.2 ; Borderline personality disorder F60.3 and DANIELA (generalized anxiety disorder) F41.1 [facility] [id number] [place] [address] May, Caries K02.9 [facility] [address] [id number] [facility] [id number] May, Benign essential hypertension I10 [facility] [address] [address] [id number] [place] [id number] Apr, [facility] [address] [address] [id number] [place] [id number] Apr, Benign essential hypertension I10 [facility] [address] [address] Apr, Borderline personality disorder F60.3 ; DANIELA (generalized anxiety disorder) F41.1 ; Mixed obsessional thoughts and acts F42.2 and Severe episode of recurrent major depressive disorder, without psychotic features F33.2 [facility] [place] [address] [id number] [place] [id number] Apr, [facility] [place] [address] [id number] [place] [id number] Apr, Benign essential hypertension I10 [facility] [address] [address] Apr, Severe episode of recurrent major depres sive disorder, without psychotic features F33.2 ; DANIELA (generalized anxiety disorder) F41.1 ; Borderline personality disorder F60.3 and Mixed obsessional thoughts and acts F42.2 [facility] [address] [id number] Apr, Dental examination Z01.20 [facility] [address] [id number] Apr, Caries K02.9 and Dental examination Z01. 20 [place] [address] [id number] Apr, DANIELA (generalized anxiety disorder) F41.1 ; Severe episode of recurrent major depressive disorder, without psychotic features F33.2 ; Mixed obsessional thoughts and acts F42.2 and Borderline personality disorder F60.3 [facility] [address] [address] Mar, Severe episode of recurrent major depres sive disorder, without psychotic features F33.2 ; Mixed obsessional thoughts and acts F42.2 ; Borderline personality disorder F60.3 and DANIELA (generalized anxiety disorder) F41.1 [place] [address] [address] Mar, Severe episode of recurrent major depres sive disorder, without psychotic features F33.2 ; Mixed obsessional thoughts and acts F42.2 ; DANIELA (generalized anxiety disorder) F41.1 and Borderline personality disorder F60.3 [facility] [address] [id number] Mar, Dental examination Z01.20 and Caries K02 .9 [place] [facility] [place] [id number] Mar, Benign essential hypertension I10 and Fa lling episodes R29.6 [facility] [address] [address] Mar, [facility] [id number] [place] [address] Mar, Severe episode of recurrent major depres sive disorder, without psychotic features F33.2 ; Mixed obsessional thoughts and acts F42.2 ; Borderline personality disorder F60.3 and DANIELA (generalized anxiety disorder) F41.1 [facility] [id number] [place] [address] Mar, [facility] [address] [address] Mar, [facility] [address] [id number] [employer] [place] [address] Mar, [facility] [address] [address] Mar, Severe episode of recurrent major depres sive disorder, without psychotic features F33.2 ; Mixed obsessional thoughts and acts F42.2 ; Borderline personality disorder F60.3 and DANIELA (generalized anxiety disorder) F41.1 [facility] [id number] [place] [address] Mar, [facility] [address] [facility] [place] [id number] Feb, Dental examination Z01.20 and Periodonti tis K05.30 [facility] [id number] [place] [address] Feb, DANIELA (generalized anxiety disorder) F41.1 ; Severe episode of recurrent major depressive disorder, without psychotic features F33.2 ; Mixed obsessional thoughts and acts F42.2 and Borderline personality disorder F60.3 [facility] [address] [id number] [address] [place] [address] Feb, Acute pain of right knee M25.561 ; Fall, initial encounter W19.XXXA ; Benign essential hypertension I10 and Edema R60.9 [facility] [id number] [place] [address] Feb, [facility] [address] [address] Feb, DANIELA (generalized anxiety disorder) F41.1 ; Severe episode of recurrent major depressive disorder, without psychotic features F33.2 ; Mixed obsessional thoughts and acts F42.2 and Borderline personality disorder F60.3 [place] [address] [address] Feb, [place] [address] [address] Jan, [place] [address] [address] Jan, [place] [address] [address] Jan, [facility] [place] [address] [id number] [address] , [place] [id number] Jan, Callus of heel L84 ; Fissure in skin R23 .4 and Hammer toe of second toe of right foot M20.41 [facility] [address] [id number] [address] , [place] [id number] Jan, [place] [address] [address] Jan, [place] [address] [address] Jan, [place] [address] [address] Jan, Severe episode of recurrent major depres sive disorder, without psychotic features F33.2 ; DANIELA (generalized anxiety disorder) F41.1 ; Mixed obsessional thoughts and acts F42.2 and Borderline personality disorder F60.3 [place] [address] [address] Jan, [facility] [address] [address] [id number] [address] , [place] [id number] Jan, Benign essential hypertension I10 [facility] [address] [address] [id number] [address] [place] [id number] Dec, Callous ulcer, limited to breakdown of s kin L98.491 and Morbid obesity E66.01 [facility] [id number] [place] [address] Dec, [facility] [id number] [place] [address] Dec, [facility] [address] [address] Dec, [facility] [address] [address] Dec, [facility] [address] [address] Dec, Severe episode of recurrent major depres sive disorder, without psychotic features F33.2 [facility] [address] [address] Dec, DANIELA (generalized anxiety disorder) F41.1 ; Severe episode of recurrent major depressive disorder, without psychotic features F33.2 ; Mixed obsessional thoughts and acts F42.2 and 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 [address] [id number] [place] [address] Dec, Morbid obesity E66.01 [facility] [id number] [place] [address] Dec, [facility] [id number] [place] [address] Dec, [facility] JENNY VINAY[facility] [address]57[address] [place] [address] Nov, [facility] [address] [id number] [place] [id number] Nov, [facility] [id number] [place] [address] Nov, [facility] [id number] [place] [address] Nov, [facility] [address] [address] [place] [address] Nov, DANIELA (generalized anxiety disorder) F41.1 ; Severe episode of recurrent major depressive disorder, without psychotic features F33.2 ; Mixed obsessional thoughts and acts F42.2 and 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 [id number] [facility] [id number] Nov, Morbid obesity E66.01 [place] [address] [address] Nov, [place] [address] [address] Nov, DANIELA (generalized anxiety disorder) F41.1 ; Mixed obsessional thoughts and acts F42.2 ; Severe episode of recurrent major depressive disorder, without psychotic features F33.2 and 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 [address]757[place] [address] October, Morbid obesity E66.01 [address] [id number] October, Benign essential hypertension I10 and Mo rbid obesity E66.01 [address] [address] October, [place] [address] [address] October, Severe episode of recurrent major depres sive disorder, without psychotic features F33.2 [address]757[address] [address] October, Morbid obesity E66.01 [address]757[address] [address] October, [place] [address] [address] October, Severe episode of recurrent major depres sive disorder, without psychotic features F33.2 ; DANIELA (generalized anxiety disorder) F41.1 ; Mixed obsessional thoughts and acts F42.2 and 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 [place] [id number] [facility] [id number] October, Morbid obesity E66.01 [facility] [address] [facility] [id number] [place] [id number] Sep, Dental examination Z01.[address] [id number] [facility] [id number] Sep, [facility] [address] [facility] [id number] 100[address] [place] [address] Sep, Sore in mouth K13.79 and Mor bid obesity E66.01 [facility] [id number] [place] [address] Sep, Dental examination Z01.20 [facility] [id number] [place] [address] Sep, Anxiety disorder, unspecified F41.[address] [place] [id number] [id number] Sep, Mouth ulcer K12.[address] [place] [address] [id number] [facility] [id number] Sep, Morbid obesity E66.[address] [place] [address] [id number] [id number] Sep, Allergic rhinitis, unspecified seasonali ty, unspecified trigger J30.9 and Shortness of breath R06.[address] [place] [address] [id number] [id number] Sep, 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 [place] [id number] [facility] [id number] Aug, Mouth abscess K12.2 ; Mouth ulcer K12.1 ; Bloating R14.0 and Morbid obesity E66.[address] [place] [address] [id number] [facility] [id number] Aug, [place] [address] [id number] [place] [id number] Aug, [facility] [address] [id number] [facility] [id number] Jul, Major depressive disorder, recurrent, mo derate F33.1 ; Abscess of arm, left L02.414 ; BMI 45.0-49.9, adult Z68.42 and Morbid obesity E66.[address] [id number] [facility] [id number] Jul, [facility] [address] [id number] [facility] [place] [id number] Jul, [facility] [place] [address] AVSOUTHERN [facility]UCK[facility]IL[facility]ATION [id number] [facility] [place] [id number] Jun, Pain in right knee M25.561 and Other chr onic pain G89.29 [facility] [address] AVSOUTHERN KENTUCKY REHABILITATION [id number] [facility] [place] [address] Jun, Benign essential hypertension I10 ; BMI 45.0-49.9, adult Z68.42 ; Morbid obesity E66.01 ; Vitamin D deficiency E55.9 ; Insomnia G47.00 ; 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 ; Edema R60.9 ; Recurrent major depressive disorder, in partial remission F33.41 ; Chronic fatigue R53.82 ; Acute pain of right knee M25.561 ; Metabolic syndrome E88.81 and Irritable mood R45.4 [address] [place] [address] Jun, [facility] [place] [address] [place] [address] AVE [id number] [place] [id number] Jun, Irritable mood R45.4 [place] [address] [address] May, [place] [address] [address] May, [place] [address] [address] May, Recurrent major depressive disorder, in partial remission F33.41 ; Mixed obsessional thoughts and acts F42.2 ; 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 2 ; Recurrent major depressive disorder, in partial remission F33.41 ; DANIELA (generalized anxiety disorder) F41.1 and BMI 45.0-49.9, adult Z68.[address] [id number] [address] , [place] [id number] Mar, [address] [place] [address] [id number] [place] [id number] Mar, BMI 45.0-49.9, adult Z68.42 ; Instabilit y of right knee joint M25.361 and Rash R21 [address] [address] Jan, Recurrent major depressive disorder, in partial remission F33.41 ; Mixed obsessional thoughts and acts F42.2 and BMI 45.0-49.9, adult Z68.[address] [id number] [place] [id number] Jan, [address] [place] [address] [id number] [place] [id number] Jan, Benign essential hypertension I10 ; BMI 45.0-49.9, adult Z68.42 ; Metabolic syndrome E88.81 and Allergic rhinitis, unspecified seasonality, unspecified trigger J30.9 [address] [place] [address] Dec, DANIELA (generalized anxiety disorder) F41.1 and Depressive disorder, not elsewhere classified F32.9 [facility] [address] [id number] [place] [id number] Dec, Recurrent major depressive disorder, in partial remission F33.41 [facility] [place] [address] [id number] [place] [id number] Dec, [facility] [place] [address] [id number] [place] [id number] Nov, [facility] [place] [address] [id number] [place] [id number] Nov, Recurrent major depressive disorder, in partial remission F33.41 [place] [address] [facility] [place] [address] Nov, Recurrent major depressive disorder, in partial remission F33.41 ; Mixed obsessional thoughts and acts F42.2 ; DANIELA (generalized anxiety disorder) F41.1 and BMI 45.0-49.9, adult Z68.42 [facility] [place] [address] [id number] [place] [id number] Nov, [facility] [place] [address] [id number] [place] [id number] Nov, Other conjunctivitis of both eyes H10.89 and Sciatica, right side M54.31 [facility] [place] [address] [id number] [place] [id number] Nov, [facility] [place] [address] [id number] [place] [id number] Nov, [facility] [place] [address] [id number] [place] [id number] October, [facility] [place] [address] [id number] [place] [id number] October, [facility] [address] [facility] [place] [address] October, BMI 45.0-49.9, adult Z68.42 ; Mixed obse ssional thoughts and acts F42.2 ; Recurrent major depressive disorder, in partial remission F33.41 and DANIELA (generalized anxiety disorder) F41.[address] [id number] [place] [id number] October, Benign essential hypertension I10 ; Morb id obesity E66.01 and BMI 45.0- 49.9, adult Z68.42 [facility] [address] [id number] [place] [id number] Sep, [facility] [address] [place] [id number] Sep, [address] [place] [address] [place] [id number] Sep, [place] [address] [id number] Sep, Hospital discharge follow-up Z09 ; Aller gic rhinitis, unspecified seasonality, unspecified trigger J30.9 and Shortness of breath R06.[address] [id number] [place] [id number] Sep, Recurrent major depressive disorder, in partial remission F33.[address] [id number] [place] [id number] Aug, Irritable mood R45.[address] [address] Aug, [address] [place] [address] [id number] [place] [id number] Jul, Benign essential hypertension I10 ; Robert a R60.9 and Impacted cerumen of left ear H61.[address] [address] 14 Jul, 2017 Major depression F32.9 ; Recurrent major depressive disorder, in partial remission F33.41 and Anxiety F41.[address] [address] Jun, Major depression F32.9 ; Recurrent major depressive disorder, in partial remission F33.[address] [facility] [address] [id number] [place] [id number] Jun, Major depression F32.9 ; Morbid obesity E66.01 ; Irritable mood R45.4 ; Hand weakness R29.898 and Vitamin D deficiency E55.9 [facility] [address] [id number] RECOVERY [facility] [id number] Jun, [address] [place] [address], [place] [id number] May, Major depression F32.9 [place] [address] [address] May, Major depression F32.[address] [place] [address] [id number] [place] [address], [place] [id number] May, BMI 50.0-59.9, adult Z68.43 ; Major depr ession F32.9 ; Anxiety F41.9 ; Hypertrophic toenail L60.2 and Pain of left great toe M79.[address] [place] [address] [id number] May, Recurrent major depressive disorder, in partial remission F33.41 [place] [address] [address] Apr, [place] [id number] [place] [id number] Apr, [place] [address] [address] Apr, Major depression F32.9 [facility] [id number] [place] [address], [place] [id number] Apr, Severe episode of recurrent major depres sive disorder, without psychotic features F33.2 ; Anxiety F41.[address] [facility] [address] [id number] [place] [id number] Apr, [facility] [address] [place] [id number] Apr, [facility] [place] [address] [id number] [place] [id number] Apr, [facility] [place] [address] [id number] [place] [id number] Mar, [facility] [place] [address] [id number] [place] [id number] Mar, Allergic conjunctivitis of both eyes H10 .13 [facility] [address] [address] Mar, Major depression F32.9 [facility] [address] [id number] [place] [id number] Mar, Metabolic syndrome E88.81 ; History of g astric bypass Z98.890 ; Benign essential hypertension I10 ; Allergic conjunctivitis of both eyes H10.13 and Morbid obesity E66.01 [facility] [address] [address] Mar, Major depression F32.9 [facility] [address] [id number] [place] [id number] Feb, [facility] [address] [address] Feb, Major depression F32.9 [facility] [address] [id number] [place] [id number] Feb, Subacute maxillary sinusitis J01.00 and Bronchitis J40 [facility] [address] [address] 06 Feb, 2017 Major depressive disorder, recurrent, mo derate F33.1 [facility] [address] [id number] [place] [id number] Jan, [facility] [address] [id number] [place] [id number] Jan, Acute non-recurrent maxillary sinusitis J01.00 and Skin tag L91.[address] [place] [place] [address] [id number] [place] [id number] Jan, Cough R05 and Sinus congestion R09.81 [place] [address] [facility] [address] [id number] [place] [id number] Jan, [address] [id number] [place] [id number] Jan, Benign essential hypertension I10 ; Hist ory of gastric bypass Z98.890 and Nausea and vomiting in adult R11.2 [place] [address] [address] 04 Jan, 2017 Major depressive disorder, recurrent, mo derate F33.[address] [address] 12 Dec, 2016 Insomnia G47.00 ; Recurrent major depres sive disorder, in partial remission F33.41 and Morbid obesity E66.[address] [id number] [place] [id number] Dec, [address] [id number] [place] [id number] Dec, Chronic bacterial conjunctivitis of left eye H10.[address] [id number] [place] [id number] Nov, [address] [id number] [place] [id number] Nov, Dental examination Z01.[address] [id number] [place] [id number] Nov, Benign essential hypertension I10 ; Hist ory of gastric bypass Z98.890 and Nausea and vomiting in adult R11.2 [place] [address] [address] 13 Nov, 2016 Major depressive disorder, recurrent, mo derate F33.1 ; Generalized anxiety disorder F41.1 and Insomnia due to other mental disorder F51.05 [place] [address] [place] [id number] [place] [address] Nov, Recurrent major depressive disorder, in partial remission F33.41 ; Insomnia G47.00 and Morbid obesity E66.01 [facility] [address] [id number] [place] [id number] October, Abscess of left arm L02.414 [place] [address] [address] October, Morbid obesity E66.01 ; Major depression F32.9 and Recurrent major depressive disorder, in partial remission F33.41 [facility] [address] [id number] [place] [id number] Sep, Benign essential hypertension I10 ; Morb id obesity E66.01 ; S/P gastric bypass Z98.84 ; Abscess L02.91 and Chronic bacterial conjunctivitis of left eye H10.402 [facility] [address] [id number] [id number] Sep, Dental examination Z01.20 [place] [address] [address] Sep, Morbid obesity E66.01 ; Major depression F32.9 and Recurrent major depressive disorder, in partial remission F33.41 [place] [address] [address] Jul, [place] [address] [address] Jul, Major depressive disorder, recurrent, mo derate F33.1 [place] [address] [address] Jul, Major depressive disorder, recurrent, mo derate F33.1 and Generalized anxiety disorder F41.1 [facility] [address] [id number] [place] [id number] Jul, Cough R05 [place] [address] [address] 16 Jul, 2016 Morbid obesity E66.01 ; Major depression F32.9 and Recurrent major depressive disorder, in partial remission F33.41 [facility] [address] [id number] [place] [id number] Jul, [facility] [place] [address] [id number] [place] [id number] Jul, [facility] [address] [id number] [id number] Jul, Gastroenteritis K52.[address] [facility] [address] [id number] [place] [id number] Jun, Acute bacterial conjunctivitis of left e ye H10.32 [place] [address] [address] Jun, [place] [address] [address] Jun, Recurrent major depressive disorder, in partial remission F33.41 [place] [address] [address] May, Major depression F32.9 and Morbid obesit y E66.01 [place] [address] [address] May, [facility] [address] [id number] [place] [id number] May, Thrush B37.0 [place] [address] [address] Apr, Major depressive disorder, recurrent, mo derate F33.1 [place] [address] [address] Apr, Insomnia G47.00 ; Major depression F32.9 and Recurrent major depressive disorder, in partial remission F33.41 [place] [address] [address] 11 Apr, 2016 [place] [address] [address] Apr, Major depression F32.9 and Recurrent romi or depressive disorder, in partial remission F33.41 [facility] [address] [id number] [place] [id number] Mar, Benign essential hypertension I10 ; Morb id obesity E66.01 ; Impacted cerumen of both ears H61.23 ; Laceration of finger of right hand, initial encounter S61.219A and Encounter for immunization Z23 [facility] [address] [address] Mar, [facility] [address] [address] Mar, [facility] [address] [address] Mar, [place] [address] [id number] [facility] [place] [id number] Feb, Nausea R11.0 ; Blood in the stool K92.1 and Benign essential hypertension I10 [facility] [address] [place] [id number] [place] [address] Feb, Major depression F32.9 and Recurrent romi or depressive disorder, in partial remission F33.41 [facility] [address] [id number] [place] [id number] Feb, [facility] [address] [id number] [place] [id number] Feb, Recurrent major depressive disorder, in partial remission F33.41 [facility] [address] [id number] [place] [id number] Jan, [facility] [address] [id number] [place] [id number] Jan, Benign essential hypertension I10 ; Robert a R60.9 and Hyperlipidemia, unspecified hyperlipidemia type E78.5 [facility] [address] [id number] [place] [id number] Jan, Recurrent major depressive disorder, in partial remission F33.41 [facility] [address] [id number] [place] [address] Jan, [facility] [address] [id number] [place] [id number] Jan, [facility] [place] [address] [id number] [place] [id number] Jan, [facility] [address] [place] [id number] [place] [address] Jan, [facility] [address] [address] Dec, [facility] [address] [address] Nov, [facility] [address] [address] Nov, Major depression F32.9 [facility] [address] [address] Nov, [facility] [address] [address] Nov, [facility] [address] [place] [address] [id number] [place] [address] Nov, Major depressive disorder, recurrent epi sode, mild F33.[address] [facility] [address] [id number] [place] [id number] Nov, [facility] [address] [id number] [place] [id number] October, Left elbow pain M25.522 and Other season al allergic rhinitis J30.2 [facility] [address] [id number] [place] [id number] October, [facility] [address] [place] [id number] [place] [address] October, Major depressive disorder, recurrent, mo derate F33.1 [facility] [address] [address] October, Major depression F32.9 [place] [address] [place] [id number] [place] [address] Sep, [place] or callus L84 and Onychomycosis B35 .1 [place] [address] [address] Sep, Major depressive disorder, recurrent, mo derate F33.1 [facility] [address] [address] Sep, Major depression F32.9 [place] [address] [address] Sep, Moderate episode of recurrent major depr essive disorder F33.1 [facility] [address] [id number] [place] 135927286 Sep, Muscle strain T14.8 [place] [address] [address] Aug, Major depression F32.9 [place] [address] [address] Aug, Major depression F32.9 [place] [address] [address] Jul, Morbid obesity E66.01 and Major depressi on F32.9 [place] [address] [address] Jul, Depression, major, recurrent, moderate F 33.1 [facility] [address] [id number] [place] 198085327 Jul, [facility] [address] [address] Jul, [place] [address] [address] Jul, Major depression F32.9 and Morbid obesit y E66.01 [facility] [address] [id number] [place] [id number] Jul, Type II diabetes mellitus E11.9 ; Callus of foot L84 ; Benign essential hypertension I10 and Renal insufficiency N28.9 [place] [address] [address] 09 Jul, 2015 Depression, major, recurrent, moderate F 33.1 [place] [address] [address] Jul, Major depression F32.9 [place] [address] [address] Jul, [place] [address] [address] Jun, Major depression F32.9 [place] [address] [address] Jun, Major depressive disorder, recurrent, mo derate F33.[address] [address] Jun, [address] [address] Jun, Major depressive disorder, recurrent, mo derate F33.1 and Major depression F32.9 [facility] [address] [id number] [place] [id number] Jun, Type II diabetes mellitus E11.9 [place] [address] [address] Jun, Depression, major, recurrent, moderate F 33.[address] [address] May, Major depressive disorder, recurrent, mo derate F33.[address] [address] May, [facility] [address] [id number] [place] [id number] May, Edema R60.9 [place] [id number] May, Insomnia G47.00 and Major depression F32 .9 [facility] [address] [facility] AVSOUTHER[facility]ATION [id number] [place] 186539309 May, Morbid obesity E66.01 ; Edema R60.9 ; Sh ortness of breath R06.02 ; Benign essential hypertension I10 and Renal insufficiency N28.[address] [facility]70092Q[facility] [place] 609849883 May, Hyperlipemia 272.4 and Renal insufficien cy N28.9 [place] [address] [address] Apr, Major depression F32.9 [place] [address] [address] Apr, [place] [address] [address] Apr, Major depressive disorder, recurrent, mo derate F33.1 [address]07757[place] 748[address]15[address] Apr, Type II diabetes mellitus E11.9 ; Benign essential hypertension I10 ; Edema R60.9 and Renal insufficiency N28.9 [facility] [address] [address] Mar, Major depressive disorder, recurrent, mo derate F33.1 [place] [address] [address] Mar, [place] [address] [address] Mar, Major depression F32.9 [place] [id number] [place] [address] [id number] Mar, Morbid obesity E66.01 ; Benign essential hypertension I10 and Type II diabetes mellitus E11.9 [facility] [address] [address] Feb, Major depressive disorder, recurrent, mo derate F33.1 [place] [address] [address] Feb, Major depressive disorder, recurrent epi sode, in partial or unspecified remission 296.35 ; Anxiety state, unspecified 300.00 and Morbid obesity 278.01 [place] [address] [address] Feb, [address] [id number] Feb, Vomiting 787.03 and Viral syndrome 079.9 9 [place] [address] [address] 15 Feb, 2015 Major depression, recurrent 296.30 ; Gen eralized anxiety disorder 300.02 and No condition on [place] II V71.[address] [id number] Feb, Skin tag 701.9 [place] [address] [address] Feb, [address] [address] Jan, Depression, major, recurrent, moderate 2 96.32 [id number] [id number] Jan, Nausea and vomiting 787.01 ; Rib pain on right side 786.50 and Fall on or from sidewalk curb E880.1 [place] [address] [address] Jan, [address] [address] Jan, Major depressive disorder, recurrent epi sode, in partial or unspecified remission 296.35 and Anxiety state, unspecified 300.[address] [id number] Jan, [place] [address] [address] Jan, Depression, major, recurrent, moderate 2 96.32 [place] [address] [place] [address] Jan, Major depression, recurrent 296.30 ; No condition on Cule[place] II V71.09 and No condition on axis III V71.09 [facility] [address] [facility]07757NOR[place] [id number] Jan, Drug-induced nausea and vomiting 787.01 [place] [address] [place] [address] Jan, Depression, major, recurrent, moderate [address] [address] Dec, Depression, major, recurrent, moderate [address] [facility] [address] [facility] [id number] [place] [id number] Dec, Morbid obesity 278.01 ; Metabolic syndro me 277.7 ; Hyperlipemia 272.4 ; Benign essential hypertension 401.1 ; Dietary counseling V65.3 ; Exercise counseling V65.41 and Inflamed skin tag 701.9 [place] [address] [place] [address] Dec, Depression, major, recurrent, moderate 2 96.32 [place] [address] [place] [address] Dec, [address] [address] Dec, Major depression, recurrent 296.30 ; Anx iety, generalized 300.02 and No condition on [place] II V71.[address] [address] Dec, Depression, major, recurrent, moderate 2 96.32 [place] [address] [place] [address] Dec, Major depressive disorder, recurrent epi sode, moderate 296.32 [place] [address] [place] [address] Dec, Depression, major, recurrent, moderate 2 96.32 [place] 544082[address] Dec, Depression, major, recurrent, moderate [address] [address] Dec, Depression, major, recurrent, moderate 2 96.32 [place] [id number] Dec, Depression, major, recurrent, moderate 2 96.32 [place] 5440[address] Nov, Depression, major, recurrent, moderate [address] [address] Nov, Major depression 296.20 ; Social phobia 300.23 and No condition on [place] II V71.[address] [address] Nov, Depression, major, recurrent, moderate [address] [address] Nov, Major depressive disorder, recurrent epi sode, moderate 296.32 and Generalized anxiety disorder 300.[address] [address] Nov, Depression, major, recurrent, moderate [address] [address] Nov, Depression, major, recurrent, moderate 2 96.32 [place] [id number] October, Generalized anxiety disorder 300.02 ; No condition on [place] II V71.09 and Major depressive disorder, recurrent 296.30 [place] [id number] Sep, [facility] [place] [facility] [address] [facility] [id number] [place] [address] 13 Sep, 2014 [facility] [place] [facility] [address] [facility] [id number] [facility] [address] 24 Aug, 2014 [facility] [place] [facility] [address] [facility] [id number] [place] [address] 24 Aug, 2014 [facility] [place] [facility] [address] [facility] [id number] [place] [address] 23 Aug, 2014 [facility] [place] [facility] [address] [facility] [id number] [place] [address] 23 Aug, 2014 [facility] [place] [facility] [address] [id number] [place] [address] 20 Aug, 2014 [facility] [place] [facility] [address] [id number] [place] [address] 20 Aug, 2014 [facility] [place] [facility] [address] [id number] [place] [address] 20 Aug, 2014 [facility] [place] [facility] [address] [facility] [id number] [place] [address] 20 Aug, 2014 [facility] [place] [facility] [address] [id number] [place] [address] 13 Aug, 2014 [facility] [place] [facility] [address] [id number] [place] [address] 13 Aug, 2014 [facility] [place] [facility] [address] [id number] [place] [address] 13 Aug, 2014 [facility] [place] [facility] [address] [facility] [id number] [place] [address] 13 Aug, 2014 [facility] [place] [facility] [address] [id number] [place] [address] 12 Aug, 2014 [facility] [place] [facility] [address] [facility] [id number] [place] [address] 12 Aug, 2014 [facility] [place] [facility] [address] [id number] [place] [address] 10 Aug, 2014 [facility] [place] [facility] [address] [id number] [place] [address] Aug, [facility] [place] [facility] [address] [facility] [id number] [place] [address] Aug, [facility] [place] [facility] [address] [id number] [place] [address] Aug, [facility] [place] [facility] [address] [id number] [place] [address] Jul, [facility] [place] [facility] [address] [id number] [place] [address] Jul, [facility] [place] [facility] [address] [id number] [place] [address] Jul, [facility] [place] [facility] [address] [id number] [place] [address] Jul, [facility] [place] [facility] [address] [id number] [place] [address] Jul, [facility] [place] [facility] [address] [id number] [place] [address] Jul, [facility] [place] [facility] [address] [id number] [place] [address] Jun, [facility] [place] [facility] [address] [id number] [place] [address] Jun, [facility] [place] [facility] [address] [id number] [place] [address] Jun, [facility] [place] [facility] [address] [id number] [place] [address] Jun, [facility] [place] [facility] [address] [id number] [place] [address] Jun, [facility] [place] [facility] [address] [id number] [place] [address] Jun, [facility] [place] [facility] [address] [id number] [place] [address] Jun, [facility] [place] [facility] [address] [id number] [place] [address] Jun, [facility] [place] [facility] [address] [id number] [place] [address] Jun, [facility] [place] [facility] [address] [id number] [place] [address] Jun, [facility] [place] [facility] [address] [id number] [place] [address] Jun, [facility] [address] [id number] [place] [address] Jun, [facility] [address] [id number] [id number] Jun, [facility] [address] [id number] [place] [address] Jun, [facility] [place] [facility] [address] [id number] [place] [address] Jun, [facility] [place] [facility] [address] [id number] [place] [address] Jun, [facility] [place] [facility] [address] [id number] [place] [address] May, [facility] [place] [facility] [address] [id number] [place] [address] May, [facility] [place] [facility] [address] [id number] [place] [address] May, [facility] [place] [facility] [address] [id number] [place] [address] May, [facility] [place] [facility] [address] [id number] [place] [address] Apr, [facility] [place] [facility] [address] [id number] [place] [address] Apr, [facility] [place] [facility] [address] [place] [address] [id number] [place] [address] Apr, [facility] [place] [facility] [address] [id number] [place] [address] Apr, [facility] [place] [facility] [address] [id number] [place] [address] Apr, [facility] [place] [facility] [address] [facility] [id number] [place] [address] Apr, [facility] [place] [facility] [address] [facility] [id number] [place] [address] Apr, [facility] [place] [facility] [address] [id number] [place] [address] Apr, [facility] [place] [facility] [address] [id number] [place] [address] Apr, [facility] [place] [facility] [address] [facility] [id number] [place] [address] Apr, [facility] [address] [id number] [place] [address] Apr, [facility] [address] [id number] [place] [address] Apr, [facility] [address] [id number] [place] [address] Apr, [facility] [address] [id number] [place] [address] Apr, [facility] [address] [id number] [place] [address] Apr, [facility] [address] [id number] [place] [address] Apr, [facility] [address] [id number] [place] [address] Apr, [facility] [address] [id number] [place] [address] Apr, [facility] [address] [id number] [place] [address] Apr, [facility] [address] [id number] [place] [address] Apr, [facility] [address] [id number] [place] [address] Mar, [facility] [address] [id number] [place] [address] Mar, [facility] [address] [facility] [id number] [place] [address] Mar, [facility] [address] [id number] [place] [address] Mar, [facility] [address] [id number] [place] [address] Mar, [facility] [address] [id number] [place] [address] Mar, [facility] [address] [id number] [place] [address] Mar, [facility] [address] [id number] [place] [address] Mar, [facility] [address] [id number] [place] [address] Mar, [facility] [address] [id number] [place] [address] Mar, [facility] [address] [id number] [place] [address] Feb, [facility] [address] [id number] [place] [address] Feb, [facility] [address] [id number] [place] [address] Feb, [facility] [facility] [id number] [place] [address] Feb, [facility] [id number] [place] [address] Jan, [facility] [id number] [place] [address] Jan, [facility] [id number] [place] [address] Jan, [facility] [id number] [place] [address] Jan, [facility] [address] [facility] [id number] [place] [address] Jan, [facility] [id number] [place] [address] Jan, [facility] [id number] [place] [address] Dec, [facility] [id number] [place] [address] Dec, [facility] [id number] [place] [address] Nov, [facility] [id number] [place] [address] Nov, [facility] [id number] [place] [address] Nov, [facility] [id number] [place] [address] Nov, [facility] [id number] [place] [address] Nov, [facility] [id number] [place] [address] Nov, [facility] [id number] [place] [address] Sep, [facility] [id number] [place] [address] Sep, [facility] [id number] [place] [address] Sep, [facility] [id number] [place] [address] Sep, [facility] [id number] [place] [address] Aug, [facility] [id number] [place] [address] Aug, [facility] [id number] [place] [address] 14 Jul, 2013 [facility] [id number] [place] [address] Jul, [facility] [id number] [place] [address] Jun, [facility] [id number] [place] [address] Jun, [facility] [id number] [place] [address] Jun, [facility] [id number] [place] [address] Jun, [facility] [id number] [place] [address] May, [facility] [id number] [place] [address] May, [facility] [id number] [place] [address] May, [facility] [id number] [place] [address] May, [facility] [id number] [place] [address] May, [facility] [id number] [place] [address] May, [facility] [id number] [place] [address] Apr, [facility] [id number] [place] [address] Apr, [facility] [id number] [place] [address] Apr, [facility] [id number] [place] [address] Apr, [facility] [id number] [place] [address] Mar, [facility] [id number] [place] [address] Mar, [facility] [id number] [place] [address] Mar, [facility] [id number] [place] [address] Mar, [facility] [id number] [place] [address] Feb, [facility] [address] [id number] [place] [id number] Jan, [facility] [id number] [place] [address] Jan, [facility] [id number] [place] [address] Dec, [facility] [id number] [place] [address] 15 Dec, 2012 [facility] [id number] [place] [address] Dec, [facility] [address] [id number] [place] [id number] Dec, [facility] [id number] [place] [address] Nov, [facility] [id number] [place] [address] 14 Nov, 2012 [facility] [id number] [place] [address] Nov, [facility] [id number] [place] [address] Nov, [facility] [id number] [place] [address] Nov, [facility] [id number] [place] [address] October, [facility] [id number] [place] [address] October, [facility] [id number] [place] [address] Aug, [facility] [address] [facility] [id number] [place] [address] Nov, IMMUNIZATIONS No Known Immunizations SOCIAL HISTORY Never Assessed REASON FOR VISIT PLAN OF CARE VITAL SIGNS Height 72 in 2013-07-26 Weight 444 lbs 2013-07-26 Temperature 98.3 degrees Fahrenheit 2013-07-26 Heart Rate 88 bpm 2013-07-26 Respiratory Rate 16 2013-07-26 Blood pressure systolic 142 mmHg 2013-07-26 Blood pressure diastolic 74 mmHg 2013-07-26 MEDICATIONS Unknown Medications RESULTS No Results PROCEDURES Procedure Date Ordered Result Body Site POLYSOMNOGRAPHY W/CPAP Jul 26, 2013 DRUG SCREEN, QUALITATE/MULTI Jul 26, 2013 INSTRUCTIONS MEDICATIONS ADMINISTERED No Known Medications MEDICAL [...] 04/2019 Hospitalization History gastric sleeve Hospitalization History [facility] Trouble with left shoulder blade 08/2017
--- OUTSIDE RECORDS SUMMARY | 2019-11-29 09:00 | XMS REPORT ---
Author Author Curt DIAZ [facility] Address [address] [place] [address] Care Team Providers Care Marketing Services Rep Name Role Phone CHRIS DIAZ Unavailable PROBLEMS Type Condition ICD9-CM Code ZPU61-FB Code Onset Dates Condition S tatus SNOMED Code Problem Edema R60.9 Active 013066259 Problem Morbid obesity E66.01 Active 69028 6002 Problem Metabolic syndrome E88.81 Active 2 26112772 Problem Renal insufficiency N28.9 Active 908846759 Problem Vitamin D deficiency E55.9 Active 00613680 Problem Severe episode of recurrent major depressive disorder, without psychotic features F33.2 Active 82502511 Problem DANIELA (generalized anxiety disorder) F41.1 Active 08609395 Problem Mixed obsessional thoughts and acts F42.2 Active 41323187 Problem Chronic fatigue R53.82 Active 8422 9001 Problem Other chronic pain G89.29 Active 8 3866241 Problem Borderline personality disorder F60.3 Active 39312178 Problem Attachment disorder F94.1 Active Problem Sciatica, right side M54.31 Active 680182341265425 Problem Insomnia G47.00 Active 426539652 Problem Anxiety F41.9 Active 20625753 Problem BMI 45.0-49.9, adult Z68.42 Active 870748217 Problem Hyperlipemia E78.5 Active 8687570 4 Problem Benign essential hypertension I10 Active 7249449 Problem Callous ulcer, limited to breakdown of skin L98.49 1 Active Problem Hammer toe of right foot M20.41 Activ e 352468699 Problem Hammer toe of second toe of right foot M20.41 Active 882723140 Problem Falling episodes R29.6 Active [id number] ALLERGIES No Information ENCOUNTERS Encounter Location Date Diagnosis [facility] [address] [id number] [place] [address] Dec, [facility] [id number] [place] [address] 15 Dec, 2019 [facility] [address] [id number] [id number] 14 Dec, 2019 [facility] [address] [address] Dec, [facility] [address] [address] Nov, [facility] [address] [address] Nov, [facility] [address] [address] October, [facility] [address] [address] October, [facility] [address] [address] Sep, [facility] [address] [address] Sep, [facility] [address] [address] Sep, [facility] [address] [address] Aug, [facility] [address] [id number] [id number] Aug, Dizzy R42 ; Weight gain R63.5 ; Benign e ssential hypertension I10 ; Falling episodes R29.6 and History of gastric bypass Z98.84 [facility] [address] [address] 14 Aug, 2019 [facility] [address] [address] 13 Aug, 2019 [facility] [address] [address] 11 Aug, 2019 DANIELA (generalized anxiety disorder) F41.1 ; Severe episode of recurrent major depressive disorder, without psychotic features F33.2 ; Mixed obsessional thoughts and acts F42.2 and Borderline personality disorder F60.3 [facility] [address] [id number] [place] [facility] [id number] Aug, [facility] [address] [id number] [place] [facility] [id number] Aug, [facility] [address] [id number] Aug, [facility] [address] [id number] [place] [facility] [id number] Aug, [facility] [address] [id number] [facility] [id number] Aug, [facility] [address] [address] Aug, [facility] [address] [id number] [facility] [id number] Aug, Severe episode of recurrent major depres sive disorder, without psychotic features F33.2 ; Borderline personality disorder F60.3 ; Anxiety F41.9 and Attachment disorder F94.1 [place] [address] [address] Jul, [facility] [address] [address] Jul, DANIELA (generalized anxiety disorder) F41.1 ; Severe episode of recurrent major depressive disorder, without psychotic features F33.2 ; Mixed obsessional thoughts and acts F42.2 and Borderline personality disorder F60.3 [facility] [address] [id number] [id number] Jul, [facility] [address] [address] 17 Jul, 2019 [facility] [address] [id number] 14 Jul, 2019 [facility] [address] [id number] 12 Jul, 2019 [place] [address] [address] Jul, [place] [address] [id number] Jun, DANIELA (generalized anxiety disorder) F41.1 ; Severe episode of recurrent major depressive disorder, without psychotic features F33.2 ; Mixed obsessional thoughts and acts F42.2 and Borderline personality disorder F60.[address] AVT[address] [id number] [place] [id number] Jun, [address] AVHARRISON MEMORIAL HOSPITALRA33289UCAYUCOS[place] [id number] Jun, [place] [address] [address] Jun, [place] [address] [address] Jun, DANIELA (generalized anxiety disorder) F41.1 ; Severe episode of recurrent major depressive disorder, without psychotic features F33.2 ; Mixed obsessional thoughts and acts F42.2 and Borderline personality disorder F60.[address] [id number][place] [id number] Jun, [address] [id number][place] [id number] Jun, [id number] [place] [id number] Jun, [address] [id number], [place] [id number] Jun, Benign essential hypertension I10 ; Morb id obesity E66.01 ; Severe episode of recurrent major depressive disorder, without psychotic features F33.2 ; Excess skin L98.7 and Hyperlipemia E78.5 [place] [address] [address] Jun, [place] [address] [address] May, [place] [id number] [place] [address] May, Severe episode of recurrent major depres sive disorder, without psychotic features F33.2 ; Mixed obsessional thoughts and acts F42.2 ; DANIELA (generalized anxiety disorder) F41.1 and Borderline personality disorder F60.3 [facility] [address] [address] May, [facility] [address] [address] May, DANIELA (generalized anxiety disorder) F41.1 ; Severe episode of recurrent major depressive disorder, without psychotic features F33.2 ; Mixed obsessional thoughts and acts F42.2 and Borderline personality disorder F60.3 [facility] [address] [address] May, [facility] [address] [address] May, [facility] [address] [address] May, Severe episode of recurrent major depres sive disorder, without psychotic features F33.2 ; Mixed obsessional thoughts and acts F42.2 ; Borderline personality disorder F60.3 and DANIELA (generalized anxiety disorder) F41.1 [facility] [address] [facility] [place] [address] May, Caries K02.9 [facility] [address] [id number][place] [id number] May, Benign essential hypertension I10 [facility] [address] [id number] [place] [id number] Apr, [facility] [address] [id number] [facility] [id number] Apr, Benign essential hypertension I10 [facility] [address] [address] Apr, Borderline personality disorder F60.3 ; DANIELA (generalized anxiety disorder) F41.1 ; Mixed obsessional thoughts and acts F42.2 and Severe episode of recurrent major depressive disorder, without psychotic features F33.2 [facility] [address] [id number] [place] [id number] Apr, [facility] [address] [id number] [facility] [id number] Apr, Benign essential hypertension I10 [facility] [address] [id number] Apr, Severe episode of recurrent major depres sive disorder, without psychotic features F33.2 ; DANIELA (generalized anxiety disorder) F41.1 ; Borderline personality disorder F60.3 and Mixed obsessional thoughts and acts F42.2 [facility] [address] [id number] Apr, Dental examination Z01.20 [facility] [address] [id number] Apr, Caries K02.9 and Dental examination Z01. 20 [facility] [address] [address] Apr, DANIELA (generalized anxiety disorder) F41.1 ; Severe episode of recurrent major depressive disorder, without psychotic features F33.2 ; Mixed obsessional thoughts and acts F42.2 and Borderline personality disorder F60.3 [facility] [address] [address] Mar, Severe episode of recurrent major depres sive disorder, without psychotic features F33.2 ; Mixed obsessional thoughts and acts F42.2 ; Borderline personality disorder F60.3 and DANIELA (generalized anxiety disorder) F41.1 [facility] [address] [address] Mar, Severe episode of recurrent major depres sive disorder, without psychotic features F33.2 ; Mixed obsessional thoughts and acts F42.2 ; DANIELA (generalized anxiety disorder) F41.1 and Borderline personality disorder F60.3 [facility] [address] [id number] Mar, Dental examination Z01.20 and Caries K02 .[address]757[place] [id number] Mar, Benign essential hypertension I10 and Fa lling episodes R29.6 [facility] [address] [address] Mar, [place] [address] [place] [address] [address] Mar, Severe episode of recurrent major depres sive disorder, without psychotic features F33.2 ; Mixed obsessional thoughts and acts F42.2 ; Borderline personality disorder F60.3 and DANIELA (generalized anxiety disorder) F41.1 [place] [address] [address] Mar, [place] [address] [address] Mar, [address]757[place] [id number] Mar, [place] [address] [address] Mar, Severe episode of recurrent major depres sive disorder, without psychotic features F33.2 ; Mixed obsessional thoughts and acts F42.2 ; Borderline personality disorder F60.3 and DANIELA (generalized anxiety disorder) F41.1 [place] [address] [address] Mar, [facility] [id number] [place] [address] Feb, Dental examination Z01.20 and Periodonti tis K05.30 [facility] [address] [place] [address] Feb, DANIELA (generalized anxiety disorder) F41.1 ; Severe episode of recurrent major depressive disorder, without psychotic features F33.2 ; Mixed obsessional thoughts and acts F42.2 and Borderline personality disorder F60.3 [address]07757[place] [id number] 30 Feb, 2019 Acute pain of right knee M25.561 ; Fall, initial encounter W19.XXXA ; Benign essential hypertension I10 and Edema R60.9 [place] [address] [address] Feb, [place] [address] [address] Feb, DANIELA (generalized anxiety disorder) F41.1 ; Severe episode of recurrent major depressive disorder, without psychotic features F33.2 ; Mixed obsessional thoughts and acts F42.2 and Borderline personality disorder F60.3 [place] [address] [address] Feb, [place] [address] [address] Jan, [place] [address] [address] Jan, [place] [address] [address] Jan, [facility] [address] [id number] [id number] Jan, Callus of heel L84 ; Fissure in skin R23 .4 and Hammer toe of second toe of right foot M20.41 [facility] [address] [id number][place] [id number] Jan, [place] [address] [address] Jan, [place] [address] [address] Jan, [place] [address] [address] Jan, Severe episode of recurrent major depres sive disorder, without psychotic features F33.2 ; DANIELA (generalized anxiety disorder) F41.1 ; Mixed obsessional thoughts and acts F42.2 and Borderline personality disorder F60.3 [place] [id number] [place] [address] Jan, [facility] [address] [id number] [place] [address] Jan, Benign essential hypertension I10 [facility] [address] [id number] [facility] [id number] Dec, Callous ulcer, limited to breakdown of s kin L98.491 and Morbid obesity E66.01 [place] [address] [address] Dec, [facility] [address] [address] Dec, [place] [address] [address] Dec, [place] [address] [address] Dec, [place] [address] [address] Dec, Severe episode of recurrent major depres sive disorder, without psychotic features F33.2 [place] [address] [address] Dec, DANIELA (generalized anxiety disorder) F41.1 ; Severe episode of recurrent major depressive disorder, without psychotic features F33.2 ; Mixed obsessional thoughts and acts F42.2 and 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 [facility] [address] [id number] [place] [address] Dec, Morbid obesity E66.01 [facility] [address] [address] Dec, [facility] [address] [address] Dec, [facility] [address] [place] [address] Nov, [facility] [address] [id number] [place] [id number] Nov, [facility] [address] [address] Nov, [facility] [address] [address] Nov, [facility] [address] [address] Nov, DANIELA (generalized anxiety disorder) F41.1 ; Severe episode of recurrent major depressive disorder, without psychotic features F33.2 ; Mixed obsessional thoughts and acts F42.2 and 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 [address]757[place] [id number] Nov, Morbid obesity E66.01 [place] [address] [address] Nov, [place] [address] [address] Nov, DANIELA (generalized anxiety disorder) F41.1 ; Mixed obsessional thoughts and acts F42.2 ; Severe episode of recurrent major depressive disorder, without psychotic features F33.2 and 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 [place] [address] [facility] [address] [id number] [address] October, Morbid obesity E66.[address] [id number] [facility] [id number] October, Benign essential hypertension I10 and Mo rbid obesity E66.01 [facility] [address] [id number] [facility]AK[facility] [id number] October, [facility] [address] [address] October, Severe episode of recurrent major depres sive disorder, without psychotic features F33.[address] [id number] [facility] [id number] October, Morbid obesity E66.[address] [id number] [facility] [address] October, [facility] [id number] [place] [address] October, Severe episode of recurrent major depres sive disorder, without psychotic features F33.2 ; DANIELA (generalized anxiety disorder) F41.1 ; Mixed obsessional thoughts and acts F42.2 and 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 [id number] [id number] October, Morbid obesity E66.01 [facility] [address] [facility] [place] [id number] Sep, Dental examination Z01.20 [place] [address] AVH[id number] [place] [id number] Sep, [facility] [address] [facility] [id number] 100[address] [place] [address] Sep, Sore in mouth K13.79 and Mor bid obesity E66.01 [facility] [address] [address] Sep, Dental examination Z01.20 [facility] [address] [address] Sep, Anxiety disorder, unspecified F41.9 [place] [address] AV[address] [facility]OSPITALLL70134HCAYUCOS, [place] [id number] Sep, Mouth ulcer K12.[address] [id number] [facility] [id number] Sep, Morbid obesity E66.[address] [id number] [facility]AK[facility] [address] Sep, Allergic rhinitis, unspecified seasonali ty, unspecified trigger J30.9 and Shortness of breath R06.[address] [id number] PEAKS [facility] [id number] Sep, 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 [place] [address], [place] [address] Aug, Mouth abscess K12.2 ; Mouth ulcer K12.1 ; Bloating R14.0 and Morbid obesity E66.[address] AVT[address] [facility] HOSPITALCM56280TCAYUCOS, [place] [id number] Aug, [facility] [address] AVT.J. [facility] HOSPITALCT48015UCAYUCOS, [place] [id number] Aug, [address] AVHARRISON MEMORIAL [id number] [place] [address], [place] [id number] Jul, Major depressive disorder, recurrent, mo derate F33.1 ; Abscess of arm, left L02.414 ; BMI 45.0-49.9, adult Z68.42 and Morbid obesity E66.[address] AVT[address] [facility] HOSPITALZV74763UCAYUCOS, [place] [id number] Jul, [facility] [place] [id number] [place] [id number] Jul, [facility] [address] AVT.J. [facility] [id number] [place] [id number] Jun, Pain in right knee M25.561 and Other chr onic pain G89.[address] AVT[address] 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 ; Edema R60.9 ; Recurrent major depressive disorder, in partial remission F33.41 ; Chronic fatigue R53.82 ; Acute pain of right knee M25.561 ; Metabolic syndrome E88.81 and Irritable mood R45.4 [place] [address] [facility] [place] [address] Jun, [address] [place] [address] Jun, Irritable mood R45.4 [place] [address] [facility] [place] [address] May, [facility] [address] [address] May, [facility] [address] [address] May, Recurrent major depressive disorder, in partial remission F33.41 ; Mixed obsessional thoughts and acts F42.2 ; 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 2 ; Recurrent major depressive disorder, in partial remission F33.41 ; DANIELA (generalized anxiety disorder) F41.1 and BMI 45.0-49.9, adult Z68.42 [facility] [address] [id number] [facility] [id number] Mar, [facility] [address] [address] [id number] [facility] [id number] Mar, BMI 45.0-49.9, adult Z68.42 ; Instabilit y of right knee joint M25.361 and Rash R21 [facility] [address] [address] Jan, Recurrent major depressive disorder, in partial remission F33.41 ; Mixed obsessional thoughts and acts F42.2 and BMI 45.0-49.9, adult Z68.42 [facility] [address] [address] [id number] [facility] [id number] Jan, [facility] [place] [address] [id number] [place] [id number] Jan, Benign essential hypertension I10 ; BMI 45.0-49.9, adult Z68.42 ; Metabolic syndrome E88.81 and Allergic rhinitis, unspecified seasonality, unspecified trigger J30.9 [facility] [id number] [place] [address] Dec, DANIELA (generalized anxiety disorder) F41.1 and Depressive disorder, not elsewhere classified F32.9 [facility] [address] [id number] [place] [address] Dec, Recurrent major depressive disorder, in partial remission F33.41 [facility] [address] [id number] [place] [id number] Dec, [facility] [place] [address] [id number] [place] [id number] Nov, [facility] [place] [address] [id number] [place] [id number] Nov, Recurrent major depressive disorder, in partial remission F33.41 [facility] [id number] [place] [address] Nov, Recurrent major depressive disorder, in partial remission F33.41 ; Mixed obsessional thoughts and acts F42.2 ; DANIELA (generalized anxiety disorder) F41.1 and BMI 45.0-49.9, adult Z68.42 [facility] [place] [address] [id number] [place] [id number] Nov, [facility] [address] [address] [id number] [place] [id number] Nov, Other conjunctivitis of both eyes H10.89 and Sciatica, right side M54.31 [facility] [address] [id number] [place] [id number] Nov, [facility] [place] [address] [id number] [place] [id number] Nov, [facility] [place] [address] [id number] [place] [id number] October, [facility] [address] [id number] [place] [id number] October, [facility] [address] [id number] [place] [address] October, BMI 45.0-49.9, adult Z68.42 ; Mixed obse ssional thoughts and acts F42.2 ; Recurrent major depressive disorder, in partial remission F33.41 and DANIELA (generalized anxiety disorder) F41.[address] [id number] [place] [id number] October, Benign essential hypertension I10 ; Morb id obesity E66.01 and BMI 45.0- 49.9, adult Z68.42 [facility] [address] [id number] [place] [id number] Sep, [facility] [address] [id number] [place] [id number] Sep, [facility] [address] [address] [id number] [place] [id number] Sep, [facility] [address] [id number] [place] [id number] Sep, Hospital discharge follow-up Z09 ; Aller gic rhinitis, unspecified seasonality, unspecified trigger J30.9 and Shortness of breath R06.02 [facility] [address] [id number] [place] [id number] Sep, Recurrent major depressive disorder, in partial remission F33.41 [facility] [address] [id number] [place] [id number] Aug, Irritable mood R45.4 [facility] [address] [facility] [place] [address] Aug, [facility] [address] [id number] [place] [id number] Jul, Benign essential hypertension I10 ; Robert a R60.9 and Impacted cerumen of left ear H61.22 [place] [id number] [place] [address] 14 Jul, 2017 Major depression F32.9 ; Recurrent major depressive disorder, in partial remission F33.41 and Anxiety F41.9 [place] [id number] [place] [address] Jun, Major depression F32.9 ; Recurrent major depressive disorder, in partial remission F33.41 and Anxiety F41.9 [facility] [address] [id number] [place] [id number] Jun, Major depression F32.9 ; Morbid obesity E66.01 ; Irritable mood R45.4 ; Hand weakness R29.898 and Vitamin D deficiency E55.9 [facility] [address] [id number] [place] , [place] [id number] Jun, [facility] [address] [id number] [place] [id number] May, Major depression F32.9 [place] [address] [place] [id number] [place] [address] May, Major depression F32.9 [facility] [address] [id number] [place] [address] May, BMI 50.0-59.9, adult Z68.43 ; Major depr ession F32.9 ; Anxiety F41.9 ; Hypertrophic toenail L60.2 and Pain of left great toe M79.675 [facility] [address] [id number] [place] [address] May, Recurrent major depressive disorder, in partial remission F33.41 [place] [address] [address] Apr, [facility] [address] [id number] [place] [id number] Apr, [place] [address] [address] Apr, Major depression F32.9 [facility] [address] [id number] [place] [id number] Apr, Severe episode of recurrent major depres sive disorder, without psychotic features F33.2 ; Anxiety F41.9 and Insomnia G47.00 [facility] [address] [id number] [place] [id number] Apr, [facility] [address] [address] Apr, [facility] [place] [address] [id number] [place] [id number] Apr, [facility] [place] [address] [id number] [place] [id number] Mar, [facility] [address] [id number] [place] [id number] Mar, Allergic conjunctivitis of both eyes H10 .13 [place] [address] [address] Mar, Major depression F32.9 [facility] [address] [id number] [place] [address] Mar, Metabolic syndrome E88.81 ; History of g astric bypass Z98.890 ; Benign essential hypertension I10 ; Allergic conjunctivitis of both eyes H10.13 and Morbid obesity E66.01 [place] [address] [address] Mar, Major depression F32.9 [facility] [address] [id number] [place] [id number] Feb, [place] [id number] [address] Feb, Major depression F32.9 [facility] [address] [id number] [place] [address] Feb, Subacute maxillary sinusitis J01.00 and Bronchitis J40 [facility] [address] [address] Feb, Major depressive disorder, recurrent, mo derate F33.1 [facility] [address] [id number] [place] [address] Jan, [facility] [address] [id number] [place] 375[address] Jan, Acute non-recurrent maxillary sinusitis J01.00 and Skin tag L91.8 [facility] [address] [id number] [place] [address] Jan, Cough R05 and Sinus congestion R09.81 [facility] [address] [id number] [place] [address] Jan, [place] [address] [id number] [place] [address] Jan, Benign essential hypertension I10 ; Hist ory of gastric bypass Z98.890 and Nausea and vomiting in adult R11.2 [place] [address] [address] Jan, Major depressive disorder, recurrent, mo derate F33.1 [facility] [address] [address] Dec, Insomnia G47.00 ; Recurrent major depres sive disorder, in partial remission F33.41 and Morbid obesity E66.01 [facility] [address] [id number] [place] [address]855[address] Dec, [place] [address] [id number] [place] [address] Dec, Chronic bacterial conjunctivitis of left eye H10.402 [facility] [address] [id number] [place] [address] Nov, [facility] [address] [id number] [place] [address] Nov, Dental examination Z01.20 [facility] [place] [address] [id number] [place] [address] Nov, Benign essential hypertension I10 ; Hist ory of gastric bypass Z98.890 and Nausea and vomiting in adult R11.2 [place] [address] [address] Nov, Major depressive disorder, recurrent, mo derate F33.1 ; Generalized anxiety disorder F41.1 and Insomnia due to other mental disorder F51.05 [place] [address] [address] Nov, Recurrent major depressive disorder, in partial remission F33.41 ; Insomnia G47.00 and Morbid obesity E66.01 [facility] [address] [facility] [place] [address] October, Abscess of left arm L02.414 [place] [address] [address] October, Morbid obesity E66.01 ; Major depression F32.9 and Recurrent major depressive disorder, in partial remission F33.41 [facility] [address] [facility] [facility] [address]90 Sep, Benign essential hypertension I10 ; Morb id obesity E66.01 ; S/P gastric bypass Z98.84 ; Abscess L02.91 and Chronic bacterial conjunctivitis of left eye H10.402 [facility] [address] [facility] [address] Sep, Dental examination Z01.[address] [address] Sep, Morbid obesity E66.01 ; Major depression F32.9 and Recurrent major depressive disorder, in partial remission F33.41 [place] [address] [address] Jul, [address] [address] Jul, Major depressive disorder, recurrent, mo derate F33.1 [place] [address] [address] Jul, Major depressive disorder, recurrent, mo derate F33.1 and Generalized anxiety disorder F41.1 [facility] [address] [id number] [place] [id number] Jul, Cough R05 [place] [address] [address] Jul, Morbid obesity E66.01 ; Major depression F32.9 and Recurrent major depressive disorder, in partial remission F33.41 [facility] [place] [address] [id number] [place] [address] Jul, [facility] [place] [address] [id number] [place] [id number] Jul, [facility] [place] [address] [id number] [place] [address] Jul, Gastroenteritis K52.9 and Cough R05 [facility] [address] [id number] [place] [address] Jun, Acute bacterial conjunctivitis of left e ye H10.32 [place] [address] [address] Jun, [place] [address] [address] Jun, Recurrent major depressive disorder, in partial remission F33.41 [place] [address] [address] May, Major depression F32.9 and Morbid obesit y E66.01 [place] [address] [address] May, [facility] [address] [id number] [place] [address] May, Thrush B37.0 [place] [address] [address] Apr, Major depressive disorder, recurrent, mo derate F33.1 [place] [address] [address] Apr, Insomnia G47.00 ; Major depression F32.9 and Recurrent major depressive disorder, in partial remission F33.41 [place] [address] [address] Apr, [place] [address] [address] Apr, Major depression F32.9 and Recurrent romi or depressive disorder, in partial remission F33.41 [facility] [address] [id number] [place] [address]44[address] Mar, Benign essential hypertension I10 ; Morb id obesity E66.01 ; Impacted cerumen of both ears H61.23 ; Laceration of finger of right hand, initial encounter S61.219A and Encounter for immunization Z23 [place] [address] [address] 17 Mar, 2016 [place] [address] [address] Mar, [place] [address] [address] Mar, [facility] [address] [id number] [address]81 Feb, Nausea R11.0 ; Blood in the stool K92.1 and Benign essential hypertension I10 [place] [address] [address] Feb, Major depression F32.9 and Recurrent romi or depressive disorder, in partial remission F33.41 [facility] [place] [address] [id number] [place] [id number] Feb, [facility] [place] [address] [id number] [place] [address]5922 Feb, Recurrent major depressive disorder, in partial remission F33.41 [facility] [place] [address] [id number] [place] [address]88[address] Jan, [facility] [place] [address] [id number] [place] 911631383 Jan, Benign essential hypertension I10 ; Robert a R60.9 and Hyperlipidemia, unspecified hyperlipidemia type E78.5 [facility] [address] [id number] [facility] 9498[address]698 Jan, Recurrent major depressive disorder, in partial remission F33.41 [facility] [address] [facility] [place] [address] Jan, [facility] [address] [id number] [place] [facility] [address] Jan, [facility] [address] [id number] [address] Jan, [facility] [address] [address] Jan, [facility] [address] [address] Dec, [facility] [address] [address] Nov, [facility] [address] [address] Nov, Major depression F32.9 [facility] [address] [address] Nov, [facility] [address] [address] Nov, [facility] [address] [address] Nov, Major depressive disorder, recurrent epi sode, mild F33.0 and Anxiety F41.9 [facility] [address] [id number] [place] [address] Nov, [facility] [address] [id number] [place] [address] October, Left elbow pain M25.522 and Other season al allergic rhinitis J30.2 [facility] [address] [id number] [address] October, [place] [address] [address] October, Major depressive disorder, recurrent, mo derate F33.1 [place] [address] [address] October, Major depression F32.9 [place] [address] [address] Sep, [place] or callus L84 and Onychomycosis B35 .1 [place] [address] [address] Sep, Major depressive disorder, recurrent, mo derate F33.1 [place] [address] [address] Sep, Major depression F32.9 [place] [address] [address] Sep, Moderate episode of recurrent major depr essive disorder F33.1 [facility] [address] [id number] [place] [address] Sep, Muscle strain T14.8 [place] [address] [address] Aug, Major depression F32.9 [place] [address] [address] Aug, Major depression F32.9 [place] [address] [address] Jul, Morbid obesity E66.01 and Major depressi on F32.9 [place] [address] [address] Jul, Depression, major, recurrent, moderate F 33.1 [facility] [place] [address] [id number] [place] [address] Jul, [place] [address] [address] Jul, [place] [address] [address] 16 Jul, 2015 Major depression F32.9 and Morbid obesit y E66.01 [place] [address] [id number] [id number] 11 Jul, 2015 Type II diabetes mellitus E11.9 ; Callus of foot L84 ; Benign essential hypertension I10 and Renal insufficiency N28.9 [place] [address] [address] 09 Jul, 2015 Depression, major, recurrent, moderate F 33.1 [place] [address] [address] 05 Jul, 2015 Major depression F32.9 [place] [address] [address] Jul, [place] [address] [address] Jun, Major depression F32.9 [place] [address] [address] Jun, Major depressive disorder, recurrent, mo derate F33.1 [place] [address] [address] Jun, [place] [address] [address] Jun, Major depressive disorder, recurrent, mo derate F33.1 and Major depression F32.9 [facility] [address] [facility] [address] Jun, Type II diabetes mellitus E11.9 [place] [address] [address] Jun, Depression, major, recurrent, moderate F 33.1 [place] [address] [address] May, Major depressive disorder, recurrent, mo derate F33.1 [facility] [address] [address] May, [place] [address] May, Edema R60.[address] [address] May, Insomnia G47.00 and Major depression F32 .[address] [id number] 15 May, 2015 Morbid obesity E66.01 ; Edema R60.9 ; Sh ortness of breath R06.02 ; Benign essential hypertension I10 and Renal insufficiency N28.9 [place] [address] May, Hyperlipemia 272.4 and Renal insufficien cy N28.[address] [address] Apr, Major depression F32.9 [place] [address] [address] Apr, [address] [address] Apr, Major depressive disorder, recurrent, mo derate F33.1 [address]757[place] [address] Apr, Type II diabetes mellitus E11.9 ; Benign essential hypertension I10 ; Edema R60.9 and Renal insufficiency N28.9 [facility] [address] [address] Mar, Major depressive disorder, recurrent, mo derate F33.1 [place] [address] [address] Mar, [facility] [address] [address] Mar, Major depression F32.9 [address]07757[place] [id number] 08 Mar, 2015 Morbid obesity E66.01 ; Benign essential hypertension I10 and Type II diabetes mellitus E11.[address] [address] 24 Feb, 2015 Major depressive disorder, recurrent, mo derate F33.[address] [address] Feb, Major depressive disorder, recurrent epi sode, in partial or unspecified remission 296.35 ; Anxiety state, unspecified 300.00 and Morbid obesity 278.[address] [address] Feb, [address] [id number] 16 Feb, 2015 Vomiting 787.03 and Viral syndrome 079.[address] [address] 15 Feb, 2015 Major depression, recurrent 296.30 ; Gen eralized anxiety disorder 300.02 and No condition on [place] II V71.[address] [id number] Feb, Skin tag 701.[address] [address] Feb, [address] [address] Jan, Depression, major, recurrent, moderate 2 96.32 [address] [place] [id number] Jan, Nausea and vomiting 787.01 ; Rib pain on right side 786.50 and Fall on or from sidewalk curb E880.[address] [address] Jan, [address] [address] Jan, Major depressive disorder, recurrent epi sode, in partial or unspecified remission 296.35 and Anxiety state, unspecified 300.00 [facility] [address] [place], [place] [address] [place] [address]8557 Jan, [facility] [address] [place] [address] Jan, Depression, major, recurrent, moderate [address] [address] Jan, Major depression, recurrent 296.30 ; No condition on [place] II V71.09 and No condition on axis III V71.09 [address]757[place], [place] [address] Jan, Drug-induced nausea and vomiting 787.[address] [address] Jan, Depression, major, recurrent, moderate [address] [address] Dec, Depression, major, recurrent, moderate 2 96.32 [address] [place]380[place] [address] Dec, Morbid obesity 278.01 ; Metabolic syndro me 277.7 ; Hyperlipemia 272.4 ; Benign essential hypertension 401.1 ; Dietary counseling V65.3 ; Exercise counseling V65.41 and Inflamed skin tag 701.[address] [address] Dec, Depression, major, recurrent, moderate [address] [address] Dec, [address] [address] Dec, Major depression, recurrent 296.30 ; Anx iety, generalized 300.02 and No condition on [place] II V71.[address] [place] [address] Dec, Depression, major, recurrent, moderate 2 96.32 [place] 171722[address] Dec, Major depressive disorder, recurrent epi sode, moderate 296.32 [place] 171722[address] Dec, Depression, major, recurrent, moderate 2 96.32 [place] 171722[address] Dec, Depression, major, recurrent, moderate 2 96.32 [place] [address] Dec, Depression, major, recurrent, moderate 2 96.32 [place] 171722[address] Dec, Depression, major, recurrent, moderate 2 96.32 [place] 171722[address] Nov, Depression, major, recurrent, moderate [address] [address] Nov, Major depression 296.20 ; Social phobia 300.23 and No condition on [place] II V71.[address] [address] Nov, Depression, major, recurrent, moderate [address] [address] Nov, Major depressive disorder, recurrent epi sode, moderate 296.32 and Generalized anxiety disorder 300.02 [place] [address]39[address] Nov, Depression, major, recurrent, moderate 2 96.32 [place] 171722[address] Nov, Depression, major, recurrent, moderate 2 96.32 [facility] [address] [facility] [place] [address] 07 Oct, 2014 Generalized anxiety disorder 300.02 ; No condition on [place] II V71.09 and Major depressive disorder, recurrent 296.30 [facility] [address] [place] [id number] [place] [address] 14 Sep, 2014 [facility] [address] [place] [id number] [place] [address] 13 Sep, 2014 [facility] [address] [place] [id number] [place] [address] 24 Aug, 2014 [facility] [address] [place] [id number] [place] [address] 24 Aug, 2014 [facility] [address] [place] [id number] [place] [address] 23 Aug, 2014 [facility] [address] [place] [id number] [place] [address] 23 Aug, 2014 [facility] [address] [place] [id number] [place] [address] 20 Aug, 2014 [facility] [address] [place] [id number] [place] [address] 20 Aug, 2014 [facility] [address] [place] [id number] [place] [address] 20 Aug, 2014 [facility] [address] [place] [id number] [place] [address] 20 Aug, 2014 [facility] [address] [place] [id number] [place] [address] 13 Aug, 2014 [facility] [address] [place] [id number] [place] [address] 13 Aug, 2014 [facility] [address] [place] [id number] [place] [address] 13 Aug, 2014 [facility] [address] [place] [id number] [place] [address] 13 Aug, 2014 [facility] [address] [place] [id number] [place] [address] Aug, [facility] [address] [facility] [id number] [place] [address] Aug, [facility] [address] [facility] [id number] [facility] [place] [address] Aug, [facility] [address] [facility] [id number] [facility] [place] [address] Aug, [facility] [address] [id number] [facility] [place] [address] Aug, [facility] [address] [facility] [id number] [facility] [place] [address] Aug, [facility] [address] [id number] [facility] [place] [address] Jul, [facility] [address] [id number] [place] [address] Jul, [facility] [address] [id number] [facility] [place] [address] Jul, [facility] [address] [id number] [place] [address] Jul, [facility] [address] [id number] [facility] [place] [address] Jul, [facility] [address] [id number] [place] [address] Jul, [facility] [address] [id number] [place] [address] Jun, [facility] [address] [id number] [facility] [place] [address] Jun, [facility] [address] [id number] [place] [address] Jun, [facility] [address] [id number] [place] [address] Jun, [facility] [address] [id number] [place] [address] Jun, [facility] [address] [id number] [place] [address] Jun, [facility] [address] [id number] [place] [address] Jun, [facility] [address] [id number] [place] [address] Jun, [facility] [address] [id number] [place] [address] Jun, [facility] [address] [id number] [place] [address] Jun, [facility] [address] [id number] [place] [address] Jun, [facility] [address] [id number] [place] [address] Jun, [facility] [address] [place] [id number] Jun, [facility] [address] [id number] [place] [address] Jun, [facility] [address] [id number] [place] [address] Jun, [facility] [address] [id number] [place] [address] Jun, [facility] [address] [id number] [place] [address] May, [facility] [address] [id number] [place] [address] May, [facility] [address] [id number] [place] [address] May, [facility] [address] [id number] [place] [address] May, [facility] [address] [id number] [place] [address] Apr, [facility] [address] [id number] [place] [address] Apr, [facility] [address] [id number] [place] [address] Apr, [facility] [address] [id number] [place] [address] Apr, [facility] [address] [id number] [place] [address] Apr, [facility] [address] [id number] [place] [address] Apr, [facility] [address] [id number] [place] [address] Apr, [facility] [address] [id number] [place] [address] Apr, [facility] [address] [id number] [place] [address] Apr, [facility] [address] [id number] [place] [address] Apr, [facility] [address] [id number] [place] [address] Apr, [facility] [address] [id number] [place] [address] Apr, [facility] [address] [id number] [place] [address] Apr, [facility] [address] [id number] [place] [address] Apr, [facility] [address] [id number] [place] [address] Apr, [facility] [address] [id number] [place] [address] Apr, [facility] [address] [id number] [place] [address] Apr, [facility] [address] [id number] [place] [address] Apr, [facility] [address] [id number] [place] [address] Apr, [facility] [address] [id number] [place] [address] Apr, [facility] [address] [facility] [id number] [place] [address] Mar, [facility] [address] [id number] [place] [address] Mar, [facility] [address] [id number] [place] [address] Mar, [facility] [address] [facility] [id number] [place] [address] Mar, [facility] [address] [id number] [place] [address] Mar, [facility] [address] [id number] [place] [address] Mar, [facility] [address] [id number] [place] [address] Mar, [facility] [address] [id number] [place] [address] Mar, [facility] [address] [id number] [place] [address] Mar, [facility] [address] [id number] [place] [address] Mar, [facility] [address] [id number] [place] [address] Feb, [facility] [address] [id number] [place] [address] Feb, [facility] [address] [id number] [place] [address] Feb, [facility] [address] [id number] [place] [address] Feb, [facility] [address] [id number] [place] [address] Jan, [facility] [address] [id number] [place] [id number] Jan, [facility] [address] [id number] [facility] [place] [address] Jan, [facility] [address] [facility] [id number] [place] [address] Jan, [facility] [address] [id number] [place] [address] Jan, [facility] [address] [facility] [id number] [place] [address] Jan, [facility] [address] [id number] [place] [address] Dec, [facility] [address] [id number] [place] [address] Dec, [facility] [address] [id number] [place] [address] Nov, [facility] [address] [id number] [place] [address] Nov, [facility] [address] [id number] [place] [address] Nov, [facility] [address] [id number] [place] [address] Nov, [facility] [address] [id number] [place] [address] Nov, [facility] [address] [id number] [place] [address] Nov, [facility] [address] [id number] [place] [address] Sep, [facility] [address] [id number] [place] [address] Sep, [facility] [address] [id number] [place] [address] Sep, [facility] [address] [id number] [place] [address] Sep, [facility] [address] [id number] [place] [address] Aug, [facility] [address] [id number] [place] [address] Aug, [facility] [address] [id number] [place] [address] Jul, [facility] [address] [id number] [place] [address] Jul, [facility] [address] [id number] [place] [address] Jun, [facility] [address] [id number] [place] [address] Jun, [facility] [address] [id number] [place] [address] Jun, [facility] [address] [id number] [place] [address] Jun, [facility] [address] [id number] [place] [address] May, [facility] [address] [id number] [place] [address] May, [facility] [address] [id number] [place] [address] May, [facility] [address] [id number] [place] [address] May, [facility] [address] [id number] [place] [address] May, [facility] [address] [id number] [place] [address] May, [facility] [address] [id number] [place] [address] Apr, [facility] [address] [id number] [place] [address] Apr, [facility] [address] [id number] [place] [address] 07 Apr, 2013 [facility] [address] [id number] [place] [address] Apr, [facility] [address] [id number] [place] [address] Mar, [facility] [address] [id number] [place] [address] Mar, [facility] [address] [id number] [place] [address] Mar, [facility] [address] [id number] [place] [address] Mar, [facility] [address] [id number] [place] [address] Feb, [facility] [address] [id number] [place] [id number] Jan, [facility] [address] [id number] [place] [address] Jan, [facility] [address] [id number] [place] [address] Dec, [facility] [address] [id number] [place] [address] Dec, [facility] [address] [id number] [place] [address] Dec, [facility] [address] [id number] [place] [id number] Dec, [facility] [address] [id number] [place] [address] Nov, [facility] [address] [id number] [place] [address] 14 Nov, 2012 [facility] [address] [id number] [place] [address] 12 Nov, 2012 [facility] [address] [id number] [place] [address] Nov, [facility] [address] [id number] [place] [address] Nov, [facility] [address] [id number] [place] [address] October, [facility] [address] [id number] [place] [address] October, [facility] [address] [id number] [place] [address] Aug, [facility] [address] [id number] [place] [address] Nov, IMMUNIZATIONS No Known Immunizations SOCIAL HISTORY [...]
--- OUTSIDE RECORDS SUMMARY | 2019-11-29 09:01 | XMS REPORT ---
Author Author Curt DIAZ [facility] Address [address] [place] [address] Care Team Providers Care Front Desk Monitor Name Role Phone JOE CHRIS Unavailable PROBLEMS Type Condition ICD9-CM Code [id number] Code Onset Dates Condition S tatus SNOMED Code Problem Edema R60.9 Active 338154973 Problem Morbid obesity E66.01 Active 60017 6002 Problem Metabolic syndrome E88.81 Active 2 54415123 Problem Renal insufficiency N28.9 Active 138931803 Problem Vitamin D deficiency E55.9 Active 48768724 Problem Severe episode of recurrent major depressive disorder, without psychotic features F33.2 Active 48722655 Problem DANIELA (generalized anxiety disorder) F41.1 Active 02757731 Problem Mixed obsessional thoughts and acts F42.2 Active 54187931 Problem Chronic fatigue R53.82 Active 8422 9001 Problem Other chronic pain G89.29 Active 8 5245320 Problem Borderline personality disorder F60.3 Active 96766624 Problem Attachment disorder F94.1 Active Problem Sciatica, right side M54.31 Active 986990869229479 Problem Insomnia G47.00 Active 204025628 Problem Anxiety F41.9 Active 26582893 Problem BMI 45.0-49.9, adult Z68.42 Active 536064236 Problem Hyperlipemia E78.5 Active 6882076 4 Problem Benign essential hypertension I10 Active 1191230 Problem Callous ulcer, limited to breakdown of skin L98.49 1 Active Problem Hammer toe of right foot M20.41 Activ e 964745158 Problem Hammer toe of second toe of right foot M20.41 Active 992952883 Problem Falling episodes R29.6 Active 161 037557 ALLERGIES No Information ENCOUNTERS Encounter Location Date Diagnosis [facility] [address] [facility] [id number] [place] [id number] Dec, [facility] [address] [facility] [id number] [place] [id number] Sep, [facility] [address] [address] Sep, [facility] [address] [place] [address] A[id number] [id number] Aug, [facility] [address] [address] Aug, [facility] [address] [place] [address] A[id number] [id number] Aug, Severe episode of recurrent major depres sive disorder, without psychotic features F33.2 ; Borderline personality disorder F60.3 ; Anxiety F41.9 and Attachment disorder F94.1 [facility] [address] [address] Jul, [facility] [address] [address] Jul, DANIELA (generalized anxiety disorder) F41.1 ; Severe episode of recurrent major depressive disorder, without psychotic features F33.2 ; Mixed obsessional thoughts and acts F42.2 and Borderline personality disorder F60.3 [facility] [address] [facility] [id number] [id number] Jul, [facility] [address] [address] Jul, [facility] [address] [address] 14 Jul, 2019 [facility] [address] [address] Jul, [facility] [address] [address] Jul, [facility] [address] [address] Jun, DANIELA (generalized anxiety disorder) F41.1 ; Severe episode of recurrent major depressive disorder, without psychotic features F33.2 ; Mixed obsessional thoughts and acts F42.2 and Borderline personality disorder F60.3 [facility] [address] [facility] [address] [id number] [place] [id number] Jun, [facility] [address] [facility] [address] [id number] [place] [id number] Jun, [facility] [address] [address] Jun, [place] [address] [address] Jun, DANIELA (generalized anxiety disorder) F41.1 ; Severe episode of recurrent major depressive disorder, without psychotic features F33.2 ; Mixed obsessional thoughts and acts F42.2 and Borderline personality disorder F60.[address] [id number] [place] [id number] Jun, [address] [id number] [place] [id number] Jun, [address] [id number] [place] [id number] Jun, [address] [id number] [facility] [id number] Jun, Benign essential hypertension I10 ; Morb id obesity E66.01 ; Severe episode of recurrent major depressive disorder, without psychotic features F33.2 ; Excess skin L98.7 and Hyperlipemia E78.5 [place] [address] [address] Jun, [place] [address] [address] May, [place] [address] [address] May, Severe episode of recurrent major depres sive disorder, without psychotic features F33.2 ; Mixed obsessional thoughts and acts F42.2 ; DANIELA (generalized anxiety disorder) F41.1 and Borderline personality disorder F60.3 [place] [address] [place] [id number] May, [facility] [address] [id number] [place] [address] May, DANIELA (generalized anxiety disorder) F41.1 ; Severe episode of recurrent major depressive disorder, without psychotic features F33.2 ; Mixed obsessional thoughts and acts F42.2 and Borderline personality disorder F60.3 [facility] [address] [address] May, [facility] [address] [address] May, [facility] [address] [address] May, Severe episode of recurrent major depres sive disorder, without psychotic features F33.2 ; Mixed obsessional thoughts and acts F42.2 ; Borderline personality disorder F60.3 and DANIELA (generalized anxiety disorder) F41.1 [facility] [address] [facility]07757B [place] [id number] May, Caries K02.9 [facility] [address] [id number] [place] [id number] May, Benign essential hypertension I10 [facility] [address] [id number] [facility] [id number] Apr, [facility] [place] [address] [id number] [facility] [id number] Apr, Benign essential hypertension I10 [facility] [address] [address] Apr, Borderline personality disorder F60.3 ; DANIELA (generalized anxiety disorder) F41.1 ; Mixed obsessional thoughts and acts F42.2 and Severe episode of recurrent major depressive disorder, without psychotic features F33.2 [facility] [address] [id number] [place] [id number] Apr, [facility] [place] [address] [id number] [place] [id number] Apr, Benign essential hypertension I10 [facility] [address] [address] Apr, Severe episode of recurrent major depres sive disorder, without psychotic features F33.2 ; DANIELA (generalized anxiety disorder) F41.1 ; Borderline personality disorder F60.3 and Mixed obsessional thoughts and acts F42.2 [facility] [address] [id number] Apr, Dental examination Z01.20 [facility] [address] [id number] Apr, Caries K02.9 and Dental examination Z01. 20 [place] [address] [address] Apr, DANIELA (generalized anxiety disorder) F41.1 ; Severe episode of recurrent major depressive disorder, without psychotic features F33.2 ; Mixed obsessional thoughts and acts F42.2 and Borderline personality disorder F60.3 [place] [address] [address] Mar, Severe episode of recurrent major depres sive disorder, without psychotic features F33.2 ; Mixed obsessional thoughts and acts F42.2 ; Borderline personality disorder F60.3 and DANIELA (generalized anxiety disorder) F41.1 [place] [address] [address] Mar, Severe episode of recurrent major depres sive disorder, without psychotic features F33.2 ; Mixed obsessional thoughts and acts F42.2 ; DANIELA (generalized anxiety disorder) F41.1 and Borderline personality disorder F60.3 [facility] [address] [id number] Mar, Dental examination Z01.20 and Caries K02 .[address] [address] Mar, Benign essential hypertension I10 and Fa lling episodes R29.6 [place] [address] [address] Mar, [place] [address] [id number] [place] [address] Mar, Severe episode of recurrent major depres sive disorder, without psychotic features F33.2 ; Mixed obsessional thoughts and acts F42.2 ; Borderline personality disorder F60.3 and DANIELA (generalized anxiety disorder) F41.1 [facility] [address] [address] Mar, [facility] [address] [address] Mar, [place] [address] [id number] [employer] [place] [id number] Mar, [place] [address] [address] Mar, Severe episode of recurrent major depres sive disorder, without psychotic features F33.2 ; Mixed obsessional thoughts and acts F42.2 ; Borderline personality disorder F60.3 and DANIELA (generalized anxiety disorder) F41.1 [place] [id number] [place] [address] Mar, [facility] [address] [id number] [place] [id number] Feb, Dental examination Z01.20 and Periodonti tis K05.[address] [address] Feb, DANIELA (generalized anxiety disorder) F41.1 ; Severe episode of recurrent major depressive disorder, without psychotic features F33.2 ; Mixed obsessional thoughts and acts F42.2 and Borderline personality disorder F60.[address] [place] [address] [id number] [employer] [place] [address] Feb, Acute pain of right knee M25.561 ; Fall, initial encounter W19.XXXA ; Benign essential hypertension I10 and Edema R60.9 [facility] [address] [id number] [place] [address] Feb, [facility] [address] [address] Feb, DANIELA (generalized anxiety disorder) F41.1 ; Severe episode of recurrent major depressive disorder, without psychotic features F33.2 ; Mixed obsessional thoughts and acts F42.2 and Borderline personality disorder F60.3 [place] [address] [address] Feb, [place] [address] [address] Jan, [place] [address] [address] Jan, [place] [address] [address] Jan, [place] [id number] [place] [id number] Jan, Callus of heel L84 ; Fissure in skin R23 .4 and Hammer toe of second toe of right foot M20.[address] [id number] [place] [id number] Jan, [place] [address] [address] Jan, [place] [address] [address] Jan, [place] [address] [address] Jan, Severe episode of recurrent major depres sive disorder, without psychotic features F33.2 ; DANIELA (generalized anxiety disorder) F41.1 ; Mixed obsessional thoughts and acts F42.2 and Borderline personality disorder F60.3 [place] [address] [address] Jan, [facility] [address] [id number] [place] [id number] Jan, Benign essential hypertension I10 [facility] [address] [id number] [place] [id number] Dec, Callous ulcer, limited to breakdown of s kin L98.491 and Morbid obesity E66.01 [facility] [address] [address] Dec, [facility] [address] [address] Dec, [facility] [address] [address] Dec, [facility] [address] [address] Dec, [facility] [address] [address] Dec, Severe episode of recurrent major depres sive disorder, without psychotic features F33.2 [facility] [address] [address] Dec, DANIELA (generalized anxiety disorder) F41.1 ; Severe episode of recurrent major depressive disorder, without psychotic features F33.2 ; Mixed obsessional thoughts and acts F42.2 and 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 [facility] [address] [id number] [place] [id number] Dec, Morbid obesity E66.01 [facility] [address] [id number] [place] [address] Dec, [facility] [address] [id number] [place] [address] Dec, [address] [id number] [place] [address] Nov, [facility] [place] [address] [id number] [place] [id number] Nov, [facility] [address] [id number] [place] [address] Nov, [facility] [address] [address] Nov, [facility] [address] [address] Nov, DANIELA (generalized anxiety disorder) F41.1 ; Severe episode of recurrent major depressive disorder, without psychotic features F33.2 ; Mixed obsessional thoughts and acts F42.2 and 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 [place] [address] [id number] [id number] Nov, Morbid obesity E66.01 [place] [address] [address] Nov, [place] [address] [address] Nov, DANIELA (generalized anxiety disorder) F41.1 ; Mixed obsessional thoughts and acts F42.2 ; Severe episode of recurrent major depressive disorder, without psychotic features F33.2 and 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 [address]757[facility] [place] [address] October, Morbid obesity E66.01 [id number] [address] October, Benign essential hypertension I10 and Mo rbid obesity E66.01 [address] [place] [address], [place] [id number] October, [place] [address] [address] October, Severe episode of recurrent major depres sive disorder, without psychotic features F33.2 [address] [place] [id number] October, Morbid obesity E66.01 [address] [place] [id number] October, [place] [address] [address] October, Severe episode of recurrent major depres sive disorder, without psychotic features F33.2 ; DANIELA (generalized anxiety disorder) F41.1 ; Mixed obsessional thoughts and acts F42.2 and 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 [id number] [place] [id number] October, Morbid obesity E66.01 [facility] [address] [facility] [id number] [place] [id number] Sep, Dental examination Z01.20 [facility] [address] [id number] [facility] [id number] Sep, [facility] [address] [facility] [id number] 100KS [place] [address] Sep, Sore in mouth K13.79 and Mor bid obesity E66.01 [facility] [address] [id number] [place] [address] Sep, Dental examination Z01.20 [facility] [address] [facility]077570 [place] [address] Sep, Anxiety disorder, unspecified F41.[address] [id number] [place] [id number] Sep, Mouth ulcer K12.[address] [place] [address] [id number] [facility] [id number] Sep, Morbid obesity E66.[address] [address] [id number] [facility] [id number] Sep, Allergic rhinitis, unspecified seasonali ty, unspecified trigger J30.9 and Shortness of breath R06.[address] [id number] [place] [id number] Sep, 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 [address] [id number] [place] [id number] Aug, Mouth abscess K12.2 ; Mouth ulcer K12.1 ; Bloating R14.0 and Morbid obesity E66.01 [facility] [address] [id number] [place] [id number] Aug, [address] [place] [address] [id number] [facility] [id number] Aug, [address] [address] [id number] [place] [address] Jul, Major depressive disorder, recurrent, mo derate F33.1 ; Abscess of arm, left L02.414 ; BMI 45.0-49.9, adult Z68.42 and Morbid obesity E66.[address] [id number] [place] [id number] Jul, [address] [id number] [id number] Jul, [address] [address] [id number] 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 2 ; Recurrent major depressive disorder, in partial remission F33.41 ; DANIELA (generalized anxiety disorder) F41.1 and BMI 45.0-49.9, adult Z68.[address] [id number] [place] [id number] Mar, [address] [place] [address] [id number] [place] [id number] Mar, BMI 45.0-49.9, adult Z68.42 ; Instabilit y of right knee joint M25.361 and Rash R21 [address] [address] Jan, Recurrent major depressive disorder, in partial remission F33.41 ; Mixed obsessional thoughts and acts F42.2 and BMI 45.0-49.9, adult Z68.[address] [id number] [employer] [place] [id number] Jan, [facility] [address] [id number] [facility] [id number] Jan, Benign essential hypertension I10 ; BMI 45.0-49.9, adult Z68.42 ; Metabolic syndrome E88.81 and Allergic rhinitis, unspecified seasonality, unspecified trigger J30.9 [place] [address] [address] Dec, DANIELA (generalized anxiety disorder) F41.1 and Depressive disorder, not elsewhere classified F32.9 [facility] [place] [address] [id number] [place] [id number] Dec, Recurrent major depressive disorder, in partial remission F33.41 [facility] [address] [address] [id number] [place] [id number] Dec, [facility] [place] [address] [id number] [place] [id number] Nov, [facility] [place] [address] [id number] [place] [id number] Nov, Recurrent major depressive disorder, in partial remission F33.41 [place] [address] [facility]077570 [place] [address] Nov, Recurrent major depressive disorder, in partial remission F33.41 ; Mixed obsessional thoughts and acts F42.2 ; DANIELA (generalized anxiety disorder) F41.1 and BMI 45.0-49.9, adult Z68.42 [facility] [address] [id number] [place] [id number] Nov, [facility] [address] [address] [id number] [place] [id number] Nov, Other conjunctivitis of both eyes H10.89 and Sciatica, right side M54.31 [facility] [address] [address] [id number] [place] [id number] Nov, [facility] [address] [address] [id number] [place] [id number] Nov, [facility] [address] [address] [id number] [place] [id number] October, [facility] [address] [address] [id number] [place] [id number] October, [facility] [address] [facility]077570 [place] [address] October, BMI 45.0-49.9, adult Z68.42 ; Mixed obse ssional thoughts and acts F42.2 ; Recurrent major depressive disorder, in partial remission F33.41 and DANIELA (generalized anxiety disorder) F41.[address] [id number] [place] [id number] October, Benign essential hypertension I10 ; Morb id obesity E66.01 and BMI 45.0- 49.9, adult Z68.[address] AVJENNIE [facility] [id number] [place] [id number] Sep, [address] [place] [id number] Sep, [address] [place] [id number] Sep, [address] AVJENNIE STUART MEDICAL [id number] [place] [id number] Sep, Hospital discharge follow-up Z09 ; Aller gic rhinitis, unspecified seasonality, unspecified trigger J30.9 and Shortness of breath R06.[address] [facility]OWENSB[id number] [place] [id number] Sep, Recurrent major depressive disorder, in partial remission F33.[address] AVOWENSBORO [facility] REGION[facility] [id number] [place] [id number] Aug, Irritable mood R45.[address] [address] Aug, [address] AVOWENSBOR[facility] [id number] [place] [id number] Jul, Benign essential hypertension I10 ; Robert a R60.9 and Impacted cerumen of left ear H61.22 [place] [address] [address] 14 Jul, 2017 Major depression F32.9 ; Recurrent major depressive disorder, in partial remission F33.41 and Anxiety F41.[address] [address] Jun, Major depression F32.9 ; Recurrent major depressive disorder, in partial remission F33.41 and Anxiety F41.9 [facility] [address] [id number] [facility] [id number] Jun, Major depression F32.9 ; Morbid obesity E66.01 ; Irritable mood R45.4 ; Hand weakness R29.898 and Vitamin D deficiency E55.9 [facility] [id number] [place] [address], [place] [id number] Jun, [facility] [id number] [place] [address], [place] [id number] May, Major depression F32.9 [place] [address] [address] May, Major depression F32.9 [facility] [id number] [place] [address], [place] [id number] May, BMI 50.0-59.9, adult Z68.43 ; Major depr ession F32.9 ; Anxiety F41.9 ; Hypertrophic toenail L60.2 and Pain of left great toe M79.[address] [place] [id number] [place] [address], [place] [id number] May, Recurrent major depressive disorder, in partial remission F33.41 [place] [address] [address] Apr, [place] [address] [id number] Apr, [place] [address] [address] Apr, Major depression F32.9 [facility] [id number] [place] [address], [place] [id number] Apr, Severe episode of recurrent major depres sive disorder, without psychotic features F33.2 ; Anxiety F41.9 and Insomnia G47.[address] [place] [address] [id number] [place] [address], [place] [id number] Apr, [facility] [address] [id number] Apr, [facility] [place] [address] [id number] [place] [id number] Apr, [facility] [place] [address] [id number] [place] [id number] Mar, [facility] [place] [address] [id number] [id number] Mar, Allergic conjunctivitis of both eyes H10 .13 [place] [address] [id number] Mar, Major depression F32.9 [facility] [address] [id number] [id number] Mar, Metabolic syndrome E88.81 ; History of g astric bypass Z98.890 ; Benign essential hypertension I10 ; Allergic conjunctivitis of both eyes H10.13 and Morbid obesity E66.01 [place] [id number] [address] Mar, Major depression F32.9 [facility] [place] [address] [id number] [place], [place] [id number] Feb, [place] [address] [address] Feb, Major depression F32.9 [facility] [place] [address] [id number] [place] [id number] Feb, Subacute maxillary sinusitis J01.00 and Bronchitis J40 [place] [address] [address] 06 Feb, 2017 Major depressive disorder, recurrent, mo derate F33.1 [facility] [place] [address] [id number] [place] [address] Jan, [facility] [place] [address] [id number] [place] [id number] Jan, Acute non-recurrent maxillary sinusitis J01.00 and Skin tag L91.8 [facility] [address] [id number] [place] [id number] Jan, Cough R05 and Sinus congestion R09.81 [facility] [address] [id number] [place] [id number] Jan, [address] [id number] [place] [id number] Jan, Benign essential hypertension I10 ; Hist ory of gastric bypass Z98.890 and Nausea and vomiting in adult R11.2 [place] [address] [address] 04 Jan, 2017 Major depressive disorder, recurrent, mo derate F33.[address] [address] 12 Dec, 2016 Insomnia G47.00 ; Recurrent major depres sive disorder, in partial remission F33.41 and Morbid obesity E66.[address] [id number] [place] [id number] Dec, [address] [id number] [place] [id number] Dec, Chronic bacterial conjunctivitis of left eye H10.[address] [id number] [place] [id number] Nov, [address] [id number] [place] [id number] Nov, Dental examination Z01.[address] [id number] [place] [id number] Nov, Benign essential hypertension I10 ; Hist ory of gastric bypass Z98.890 and Nausea and vomiting in adult R11.2 [place] [address] [address] 13 Nov, 2016 Major depressive disorder, recurrent, mo derate F33.1 ; Generalized anxiety disorder F41.1 and Insomnia due to other mental disorder F51.[address] [address] Nov, Recurrent major depressive disorder, in partial remission F33.41 ; Insomnia G47.00 and Morbid obesity E66.01 [facility] [address] [facility]757G [place] [id number] October, Abscess of left arm L02.414 [place] [address] [address] October, Morbid obesity E66.01 ; Major depression F32.9 and Recurrent major depressive disorder, in partial remission F33.[address] [place] [address] [id number] [facility] [id number] Sep, Benign essential hypertension I10 ; Morb id obesity E66.01 ; S/P gastric bypass Z98.84 ; Abscess L02.91 and Chronic bacterial conjunctivitis of left eye H10.402 [facility] [address] [place] [id number] [place] [id number] Sep, Dental examination Z01.20 [place] [address] [address] Sep, Morbid obesity E66.01 ; Major depression F32.9 and Recurrent major depressive disorder, in partial remission F33.41 [place] [address] [address] Jul, [place] [address] [address] Jul, Major depressive disorder, recurrent, mo derate F33.1 [place] [address] [address] Jul, Major depressive disorder, recurrent, mo derate F33.1 and Generalized anxiety disorder F41.[address] [place] [address] [id number] [place] [id number] Jul, Cough R05 [place] [address] [address] 16 Jul, 2016 Morbid obesity E66.01 ; Major depression F32.9 and Recurrent major depressive disorder, in partial remission F33.41 [facility] [address] [id number] [place] [id number] Jul, [facility] [address] [id number] [place] [id number] Jul, [facility] [id number] [place] [id number] Jul, Gastroenteritis K52.9 and Cough R05 [facility] [address] [id number] [place] [id number] Jun, Acute bacterial conjunctivitis of left e ye H10.32 [place] [address] [address] Jun, [place] [address] [address] Jun, Recurrent major depressive disorder, in partial remission F33.41 [place] [address] [address] May, Major depression F32.9 and Morbid obesit y E66.01 [place] [address] [address] May, [facility] [address] [facility] [address] [id number] [id number] May, Thrush B37.0 [place] [address] [address] Apr, Major depressive disorder, recurrent, mo derate F33.1 [facility] [address] [address] Apr, Insomnia G47.00 ; Major depression F32.9 and Recurrent major depressive disorder, in partial remission F33.41 [facility] [address] [address] Apr, [facility] [address] [address] Apr, Major depression F32.9 and Recurrent romi or depressive disorder, in partial remission F33.41 [facility] [address] [id number] [place] [id number] Mar, Benign essential hypertension I10 ; Morb id obesity E66.01 ; Impacted cerumen of both ears H61.23 ; Laceration of finger of right hand, initial encounter S61.219A and Encounter for immunization Z23 [facility] [address] [address] Mar, [facility] [address] [address] Mar, [facility] [address] [address] Mar, [place] [address] [id number] [place] [id number] Feb, Nausea R11.0 ; Blood in the stool K92.1 and Benign essential hypertension I10 [facility] [address] [place] [id number] [place] [address] Feb, Major depression F32.9 and Recurrent romi or depressive disorder, in partial remission F33.41 [facility] [address] [id number] [place] [id number] Feb, [facility] [address] [id number] [place] [facility] [id number] Feb, Recurrent major depressive disorder, in partial remission F33.41 [facility] [address] [id number] [place] [id number] Jan, [facility] [address] [id number] [place] [id number] Jan, Benign essential hypertension I10 ; Robert a R60.9 and Hyperlipidemia, unspecified hyperlipidemia type E78.5 [facility] [address] [id number] [place] [id number] Jan, Recurrent major depressive disorder, in partial remission F33.41 [facility] [address] [facility] [place] [id number] Jan, [facility] [address] [id number] [place] [id number] Jan, [facility] [address] [id number] [place] [id number] Jan, [facility] [address] [place] [id number] [place] [address] Jan, [facility] [address] [address] Dec, [facility] [address] [address] Nov, [facility] [address] [place] [id number] [place] [address] Nov, Major depression F32.9 [facility] [address] [place] [id number] [place] [address] Nov, [facility] [address] [place] [id number] [place] [address] Nov, [facility] [address] [place] [id number] [place] [address] Nov, Major depressive disorder, recurrent epi sode, mild F33.0 and Anxiety F41.9 [facility] [address] [id number] [place] [id number] Nov, [facility] [address] [id number] [place] 647720871 October, Left elbow pain M25.522 and Other season al allergic rhinitis J30.2 [facility] [address] [id number] [place] [id number] October, [facility] [address] [place] [id number] [place] [address] October, Major depressive disorder, recurrent, mo derate F33.1 [facility] [address] [place] [id number] [place] [address] October, Major depression F32.9 [facility] [address] [place] [id number] Sep, [place] or callus L84 and Onychomycosis B35 .1 [place] [address] [place] [id number] Sep, Major depressive disorder, recurrent, mo derate F33.1 [place] [address] [address] Sep, Major depression F32.9 [place] [address] [address] Sep, Moderate episode of recurrent major depr essive disorder F33.[address] [place] [address] [id number] [place] [id number] Sep, Muscle strain T14.8 [place] [address] [address] Aug, Major depression F32.9 [place] [address] [address] Aug, Major depression F32.9 [place] [address] [address] Jul, Morbid obesity E66.01 and Major depressi on F32.9 [place] [address] [address] Jul, Depression, major, recurrent, moderate F 33.1 [facility] [address] [id number] [place] [id number] Jul, [place] [address] [address] Jul, [address] [address] Jul, Major depression F32.9 and Morbid obesit y E66.01 [facility] [address] [id number] [place] 727[address] Jul, Type II diabetes mellitus E11.9 ; Callus of foot L84 ; Benign essential hypertension I10 and Renal insufficiency N28.9 [place] [address] [address] 09 Jul, 2015 Depression, major, recurrent, moderate F 33.1 [place] [address] [address] 05 Jul, 2015 Major depression F32.9 [place] [address] [place] [address] 04 Jul, 2015 [place] [address] [place] [address] Jun, Major depression F32.9 [place] 4633[address] Jun, Major depressive disorder, recurrent, mo derate F33.[address] [address] Jun, [place] [address] [place] [address] Jun, Major depressive disorder, recurrent, mo derate F33.1 and Major depression F32.9 [facility] [address] [id number] [place] [id number] Jun, Type II diabetes mellitus E11.[address] [address] Jun, Depression, major, recurrent, moderate F 33.[address] [address] May, Major depressive disorder, recurrent, mo derate F33.[address] [address] May, [facility] [address] [id number] [place] [id number] May, Edema R60.[address] [address] May, Insomnia G47.00 and Major depression F32 .9 [facility] [address] [facility] [address] [id number] [place] 130[address] May, Morbid obesity E66.01 ; Edema R60.9 ; Sh ortness of breath R06.02 ; Benign essential hypertension I10 and Renal insufficiency N28.9 [facility] [address] [facility] [address] [id number] [place] [id number] May, Hyperlipemia 272.4 and Renal insufficien cy N28.9 [place] [address] [address] Apr, Major depression F32.[address] [address] Apr, [address] [address] Apr, Major depressive disorder, recurrent, mo derate F33.[address] [place] [address] [facility] [id number] Apr, Type II diabetes mellitus E11.9 ; Benign essential hypertension I10 ; Edema R60.9 and Renal insufficiency N28.[address] [address] Mar, Major depressive disorder, recurrent, mo derate F33.[address] [address] Mar, [address] [address] Mar, Major depression F32.9 [address]07757[place] [address] Mar, Morbid obesity E66.01 ; Benign essential hypertension I10 and Type II diabetes mellitus E11.9 [place] [address] [address] Feb, Major depressive disorder, recurrent, mo derate F33.1 [place] [address] [address] Feb, Major depressive disorder, recurrent epi sode, in partial or unspecified remission 296.35 ; Anxiety state, unspecified 300.00 and Morbid obesity 278.01 [place] [address] [address] Feb, [address] [id number] Feb, Vomiting 787.03 and Viral syndrome 079.[address] [address] 15 Feb, 2015 Major depression, recurrent 296.30 ; Gen eralized anxiety disorder 300.02 and No condition on [place] II V71.[address] [id number] Feb, Skin tag 701.[address] [address] Feb, [address] [address] Jan, Depression, major, recurrent, moderate [address] [id number] Jan, Nausea and vomiting 787.01 ; Rib pain on right side 786.50 and Fall on or from sidewalk curb E880.[address] [address] Jan, [address] [address] Jan, Major depressive disorder, recurrent epi sode, in partial or unspecified remission 296.35 and Anxiety state, unspecified 300.[address] [id number] Jan, [address] [address] Jan, Depression, major, recurrent, moderate [address] [address] Jan, Major depression, recurrent 296.30 ; No condition on [place] II V71.09 and No condition on axis III V71.09 [facility] [address] [id number] [id number] 13 Jan, 2015 Drug-induced nausea and vomiting 787.[address] [address] Jan, Depression, major, recurrent, moderate [address] [address] Dec, Depression, major, recurrent, moderate 2 96.32 [facility] [address] [id number] [place] [id number] Dec, Morbid obesity 278.01 ; Metabolic syndro me 277.7 ; Hyperlipemia 272.4 ; Benign essential hypertension 401.1 ; Dietary counseling V65.3 ; Exercise counseling V65.41 and Inflamed skin tag 701.[address] [address] Dec, Depression, major, recurrent, moderate [address] [address] Dec, [address] [address] Dec, Major depression, recurrent 296.30 ; Anx iety, generalized 300.02 and No condition on [place] II V71.[address] [address] Dec, Depression, major, recurrent, moderate [address] [address] Dec, Major depressive disorder, recurrent epi sode, moderate 296.[address] [address] Dec, Depression, major, recurrent, moderate 2 96.32 [place] [address] [address] Dec, Depression, major, recurrent, moderate 2 96.32 [place] [address] [address] Dec, Depression, major, recurrent, moderate 2 96.32 [place] [address] [address] Dec, Depression, major, recurrent, moderate 2 96.32 [place] [address] [address] Nov, Depression, major, recurrent, moderate 2 96.32 [place] [address] [address] Nov, Major depression 296.20 ; Social phobia 300.23 and No condition on [place] II V71.09 [place] [address] [address] Nov, Depression, major, recurrent, moderate 2 96.32 [place] [address] [address] Nov, Major depressive disorder, recurrent epi sode, moderate 296.32 and Generalized anxiety disorder 300.[address] [address] Nov, Depression, major, recurrent, moderate [address] [address] Nov, Depression, major, recurrent, moderate 2 96.32 [place] 4633[address] October, Generalized anxiety disorder 300.02 ; No condition on [place] II V71.09 and Major depressive disorder, recurrent 296.[address] [address] Sep, [facility] [address] [facility] [id number] [facility] [place] [address] 13 Sep, 2014 [facility] [address] [facility] [id number] [place] [address] 24 Aug, 2014 [facility] [address] [facility] [id number] [place] [address] 24 Aug, 2014 [facility] [address] [id number] [place] [address] 23 Aug, 2014 [facility] [address] [facility] [id number] [place] [address] 23 Aug, 2014 [facility] [address] [facility] [id number] [place] [address] 20 Aug, 2014 [facility] [address] [id number] [place] [address] 20 Aug, 2014 [facility] [address] [id number] [place] [address] 20 Aug, 2014 [facility] [address] [id number] [place] [address] 20 Aug, 2014 [facility] [address] [facility] [id number] [place] [address] 13 Aug, 2014 [facility] [address] [id number] [place] [address] 13 Aug, 2014 [facility] [address] [id number] [place] [address] 13 Aug, 2014 [facility] [address] [facility] [id number] [place] [address] 13 Aug, 2014 [facility] [address] [facility] [id number] [place] [address] 12 Aug, 2014 [facility] [address] [id number] [place] [address] 12 Aug, 2014 [facility] [address] [id number] [place] [address] 10 Aug, 2014 [facility] [address] [id number] [place] [address] Aug, [facility] [address] [id number] [place] [address] Aug, [facility] [address] [id number] [place] [address] Aug, [facility] [address] [id number] [place] [address] Jul, [facility] [address] [id number] [place] [address] Jul, [facility] [address] [id number] [place] [address] Jul, [facility] [address] [id number] [place] [address] Jul, [facility] [address] [id number] [place] [address] Jul, [facility] [address] [id number] [place] [address] Jul, [facility] [address] [id number] [place] [address] Jun, [facility] [address] [id number] [place] [address] Jun, [facility] [address] [id number] [place] [address] Jun, [facility] [address] [id number] [place] [address] Jun, [facility] [address] [id number] [place] [address] Jun, [facility] [address] [id number] [place] [address] Jun, [facility] [address] [id number] [place] [address] Jun, [facility] [address] [id number] [place] [address] Jun, [facility] [address] [id number] [place] [address] Jun, [facility] [address] [id number] [place] [address] Jun, [facility] [address] [id number] [place] [address] Jun, [facility] [address] [id number] [place] [address] Jun, [facility] [address] [place] [id number] Jun, [facility] [address] [id number] [place] [address] Jun, [facility] [address] [id number] [place] [address] Jun, [facility] [address] [id number] [place] [address] Jun, [facility] [address] [id number] [place] [address] May, [facility] [address] [id number] [place] [address] May, [facility] [address] [id number] [place] [address] May, [facility] [address] [id number] [place] [address] May, [facility] [address] [id number] [place] [address] Apr, [facility] [address] [id number] [place] [address] Apr, [facility] [address] [id number] [place] [address] Apr, [facility] [address] [id number] [place] [address] Apr, [facility] [address] [id number] [place] [address] Apr, [facility] [address] [id number] [place] [address] Apr, [facility] [address] [id number] [place] [address] Apr, [facility] [address] [id number] [place] [address] Apr, [facility] [address] [id number] [place] [address] Apr, [facility] [address] [id number] [place] [address] Apr, [facility] [address] [id number] [place] [address] Apr, [facility] [address] [id number] [place] [address] Apr, [facility] [address] [id number] [place] [address] Apr, [facility] [address] [id number] [place] [address] Apr, [facility] [address] [id number] [place] [address] Apr, [facility] [address] [id number] [place] [address] Apr, [facility] [address] [id number] [place] [address] Apr, [facility] [address] [id number] [place] [address] Apr, [facility] [address] [id number] [place] [address] Apr, [facility] [address] [id number] [place] [address] Apr, [facility] [address] [id number] [place] [address] Mar, [facility] [address] [id number] [place] [address] Mar, [facility] [address] [facility] [id number] [place] [address] Mar, [facility] [address] [facility] [id number] [place] [address] Mar, [facility] [address] [id number] [place] [address] Mar, [facility] [address] [id number] [place] [address] Mar, [facility] [address] [facility] [id number] [place] [address] Mar, [facility] [address] [id number] [place] [address] Mar, [facility] [address] [id number] [place] [address] Mar, [facility] [address] [id number] [place] [address] Mar, [facility] [address] [id number] [place] [address] Feb, [facility] [address] [id number] [place] [address] Feb, [facility] [address] [id number] [place] [address] Feb, [facility] [address] [id number] [place] [address] Feb, [facility] [address] [facility] [id number] [place] [address] Jan, [facility] [address] [facility] [facility] [id number] [place] [address] Jan, [facility] [address] [id number] [place] [address] Jan, [facility] [address] [id number] [place] [address] Jan, [facility] [address] [id number] [facility] [place] [address] Jan, [facility] [address] [id number] [facility] [place] [address] Jan, [facility] [address] [facility] [id number] [place] [address] Dec, [facility] [address] [id number] [place] [address] Dec, [facility] [address] [id number] [place] [address] Nov, [facility] [address] [id number] [place] [address] Nov, [facility] [address] [id number] [place] [address] Nov, [facility] [address] [id number] [place] [address] Nov, [facility] [address] [id number] [place] [address] Nov, [facility] [address] [id number] [place] [address] Nov, [facility] [address] [id number] [place] [address] Sep, [facility] [address] [id number] [place] [address] Sep, [facility] [address] [id number] [place] [address] Sep, [facility] [address] [facility] [id number] [place] [address] Sep, [facility] [address] [id number] [place] [address] Aug, [facility] [address] [id number] [place] [address] Aug, [facility] [address] [id number] [place] [address] Jul, [facility] [address] [id number] [place] [address] Jul, [facility] [address] [id number] [place] [address] Jun, [facility] [address] [id number] [place] [address] Jun, [facility] [id number] [place] [address] Jun, [facility] [address] [id number] [place] [address] Jun, [facility] [address] [id number] [place] [address] May, [facility] [address] [id number] [place] [address] May, [facility] [id number] [place] [address] May, [facility] [address] [id number] [place] [address] May, [facility] [address] [id number] [place] [address] May, [facility] [address] [id number] [place] [address] May, [facility] [address] [id number] [place] [address] Apr, [facility] [address] [id number] [place] [address] Apr, [facility] [address] [id number] [place] [address] Apr, [facility] [address] [id number] [place] [address] Apr, [facility] [address] [id number] [place] [address] Mar, [facility] [address] [id number] [place] [address] Mar, [facility] [address] [id number] [place] [address] Mar, [facility] [address] [id number] [place] [address] Mar, [facility] [address] [id number] [place] [address] Feb, [facility] [address] [facility] [id number] Jan, [facility] [address] [id number] [place] [address] Jan, [facility] [address] [id number] [place] [address] Dec, [facility] [address] [id number] [place] [address] Dec, [facility] [address] [id number] [place] [address] Dec[facility] [address] [facility] [id number] Dec, [facility] [address] [id number] [place] [address] Nov, [facility] [address] [id number] [place] [address] Nov, [facility] [address] [id number] [place] [address] Nov, [facility] [address] [id number] [place] [address] Nov, [facility] [address] [id number] [place] [address] Nov, [facility] [address] [id number] [place] [address] October, [facility] [address] [id number] [place] [address] October, [facility] [address] [id number] [place] [address] Aug, [facility] [address] [facility] [id number] [place] [address] Nov, IMMUNIZATIONS No Known Immunizations SOCIAL HISTORY [...] 04/2019 Hospitalization History gastric sleeve Hospitalization History [facility] ER Trouble with left shoulder blade 08/2017
--- OUTSIDE RECORDS SUMMARY | 2019-11-29 09:02 | XMS REPORT ---
Author Author Curt DIAZ [facility] Address [address] [place] [address] Care Team Providers [employer] Name Role Phone JOE CHRIS Unavailable PROBLEMS Type Condition ICD9-CM Code RTP71-SC Code Onset Dates Condition S tatus SNOMED Code Problem Benign essential hypertension I10 Active 5704338 Problem Insomnia G47.00 Active 935536260 Problem Edema R60.9 Active 351141467 Problem Morbid obesity E66.01 Active 70443 6002 Problem Metabolic syndrome E88.81 Active 2 28025715 Problem Renal insufficiency N28.9 Active 741538005 Problem Vitamin D deficiency E55.9 Active 00657177 Problem Severe episode of recurrent major depressive disorder, without psychotic features F33.2 Active 04445511 Problem DANIELA (generalized anxiety disorder) F41.1 Active 53667690 Problem Sciatica, right side M54.31 Active 365252222425672 Problem Chronic fatigue R53.82 Active 8422 9001 Problem Hammer toe of right foot M20.41 Activ e 322582316 Problem Mixed obsessional thoughts and acts F42.2 Active 90570834 Problem Falling episodes R29.6 Active 161 063933 Problem BMI 45.0-49.9, adult Z68.42 Active 741130765 Problem Hyperlipemia E78.5 Active 6297605 4 Problem Other chronic pain G89.29 Active 8 0342786 Problem Borderline personality disorder F60.3 Active 04750588 Problem Callous ulcer, limited to breakdown of skin L98.49 1 Active Problem Hammer toe of second toe of right foot M20.41 Active 437346200 ALLERGIES No Information ENCOUNTERS Encounter Location Date Diagnosis [facility] [address] [facility] [place] [address] Jun, [facility] [address] [facility] [place] [address] Jun, [facility] [address] [id number] [id number] Jun, [facility] [address] [place] [id number] May, [facility] [address] [address] May, Severe episode of recurrent major depres sive disorder, without psychotic features F33.2 ; Mixed obsessional thoughts and acts F42.2 ; DANIELA (generalized anxiety disorder) F41.1 and Borderline personality disorder F60.3 [facility] [address] [address] May, [facility] [address] [address] May, DANIELA (generalized anxiety disorder) F41.1 ; Severe episode of recurrent major depressive disorder, without psychotic features F33.2 ; Mixed obsessional thoughts and acts F42.2 and Borderline personality disorder F60.3 [facility] [address] [address] May, [facility] [address] [address] May, [facility] [address] [address] May, Severe episode of recurrent major depres sive disorder, without psychotic features F33.2 ; Mixed obsessional thoughts and acts F42.2 ; Borderline personality disorder F60.3 and DANIELA (generalized anxiety disorder) F41.1 [facility] [address] [facility] [place] [id number] May, Caries K02.[address] [facility] [address] [id number] [facility] [id number] May, Benign essential hypertension I10 [facility] [address] [id number] [facility] [id number] Apr, [facility] [address] [id number] [facility] [id number] Apr, Benign essential hypertension I10 [facility] [address] [address] Apr, Borderline personality disorder F60.3 ; DANIELA (generalized anxiety disorder) F41.1 ; Mixed obsessional thoughts and acts F42.2 and Severe episode of recurrent major depressive disorder, without psychotic features F33.[address] [facility] [address] [id number] [id number] Apr, [facility] [address] [id number] [facility] [id number] Apr, Benign essential hypertension I10 [place] [address] [address] Apr, Severe episode of recurrent major depres sive disorder, without psychotic features F33.2 ; DANIELA (generalized anxiety disorder) F41.1 ; Borderline personality disorder F60.3 and Mixed obsessional thoughts and acts F42.2 [facility] [address] [id number] Apr, Dental examination Z01.20 [facility] [address] [id number] Apr, Caries K02.9 and Dental examination Z01. 20 [facility] [address] [address] Apr, DANIELA (generalized anxiety disorder) F41.1 ; Severe episode of recurrent major depressive disorder, without psychotic features F33.2 ; Mixed obsessional thoughts and acts F42.2 and Borderline personality disorder F60.3 [facility] [address] [address] Mar, Severe episode of recurrent major depres sive disorder, without psychotic features F33.2 ; Mixed obsessional thoughts and acts F42.2 ; Borderline personality disorder F60.3 and DANIELA (generalized anxiety disorder) F41.1 [facility] [address] [address] Mar, Severe episode of recurrent major depres sive disorder, without psychotic features F33.2 ; Mixed obsessional thoughts and acts F42.2 ; DANIELA (generalized anxiety disorder) F41.1 and Borderline personality disorder F60.3 [facility] [address] [id number] Mar, Dental examination Z01.20 and Caries K02 .[address] [facility] [address] [id number] [id number] Mar, Benign essential hypertension I10 and Fa lling episodes R29.6 [facility] [address] [address] Mar, [facility] [address] [address] Mar, Severe episode of recurrent major depres sive disorder, without psychotic features F33.2 ; Mixed obsessional thoughts and acts F42.2 ; Borderline personality disorder F60.3 and DANIELA (generalized anxiety disorder) F41.1 [facility] [address] [address] Mar, [facility] [address] [address] Mar, [facility] [address] [facility] [address] [id number] [id number] Mar, [facility] [address] [address] Mar, Severe episode of recurrent major depres sive disorder, without psychotic features F33.2 ; Mixed obsessional thoughts and acts F42.2 ; Borderline personality disorder F60.3 and DANIELA (generalized anxiety disorder) F41.1 [facility] [address] [address] Mar, [facility] [address] [id number] Feb, Dental examination Z01.20 and Periodonti tis K05.30 [facility] [address] [address] Feb, DANIELA (generalized anxiety disorder) F41.1 ; Severe episode of recurrent major depressive disorder, without psychotic features F33.2 ; Mixed obsessional thoughts and acts F42.2 and Borderline personality disorder F60.[address] [facility] [address] [id number] [place] [id number] Feb, Acute pain of right knee M25.561 ; Fall, initial encounter W19.XXXA ; Benign essential hypertension I10 and Edema R60.9 [place] [address] [address] Feb, [place] [address] [address] Feb, DANIELA (generalized anxiety disorder) F41.1 ; Severe episode of recurrent major depressive disorder, without psychotic features F33.2 ; Mixed obsessional thoughts and acts F42.2 and Borderline personality disorder F60.3 [place] [address] [address] Feb, [facility] [address] [address] Jan, [place] [address] [address] Jan, [place] [address] [address] Jan, [place] [address] [id number] [id number] Jan, Callus of heel L84 ; Fissure in skin R23 .4 and Hammer toe of second toe of right foot M20.[address] [facility] [address] [id number][place] [id number] Jan, [place] [address] [address] Jan, [facility] [address] [address] Jan, [facility] [address] [address] Jan, Severe episode of recurrent major depres sive disorder, without psychotic features F33.2 ; DANIELA (generalized anxiety disorder) F41.1 ; Mixed obsessional thoughts and acts F42.2 and Borderline personality disorder F60.3 [facility] [address] [address] Jan, [place] [address] [id number] [id number] Jan, Benign essential hypertension I10 [id number] [place] [id number] Dec, Callous ulcer, limited to breakdown of s kin L98.491 and Morbid obesity E66.01 [place] [address] [address] Dec, [facility] [address] [address] Dec, [facility] [address] [address] Dec, [facility] [address] [address] Dec, [place] [address] [address] Dec, Severe episode of recurrent major depres sive disorder, without psychotic features F33.2 [place] [address] [address] Dec, DANIELA (generalized anxiety disorder) F41.1 ; Severe episode of recurrent major depressive disorder, without psychotic features F33.2 ; Mixed obsessional thoughts and acts F42.2 and 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 [address] [id number][place] [id number] Dec, Morbid obesity E66.01 [facility] [address] [address] Dec, [facility] [address] [address] Dec, [facility] J[facility] LICEA [address] [place] [address] Nov, [place] [address] [id number] [facility] [id number] Nov, [facility] [address] [place] [id number] [place] [address] Nov, [facility] [address] [address] Nov, [facility] [address] [address] Nov, DANIELA (generalized anxiety disorder) F41.1 ; Severe episode of recurrent major depressive disorder, without psychotic features F33.2 ; Mixed obsessional thoughts and acts F42.2 and 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 [id number][place] [id number] Nov, Morbid obesity E66.01 [facility] [address] [place] [id number] [place] [address] Nov, [place] [address] [address] Nov, DANIELA (generalized anxiety disorder) F41.1 ; Mixed obsessional thoughts and acts F42.2 ; Severe episode of recurrent major depressive disorder, without psychotic features F33.2 and 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 [place] [address] [id number] [id number] October, Morbid obesity E66.[address] [place] [address] [id number] [facility] [id number] October, Benign essential hypertension I10 and Mo rbid obesity E66.[address] [facility] [address] [id number] [facility] [id number] October, [facility] [address] [place] [id number] [place] [address] October, Severe episode of recurrent major depres sive disorder, without psychotic features F33.[address] [facility] [address] [id number] [facility] [id number] October, Morbid obesity E66.[address] [facility] [address] [id number] [facility] [id number] October, [facility] [address] [address] October, Severe episode of recurrent major depres sive disorder, without psychotic features F33.2 ; DANIELA (generalized anxiety disorder) F41.1 ; Mixed obsessional thoughts and acts F42.2 and 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 [place] [address], [place] [id number] October, Morbid obesity E66.01 [facility] [address] [facility] [place] [id number] Sep, Dental examination Z01.[address] [place] [address] [id number][place] [id number] Sep, [facility] [address] [facility] [id number] 100[address] [place] [address] Sep, Sore in mouth K13.79 and Mor bid obesity E66.01 [facility] [address] [address] Sep, Dental examination Z01.20 [facility] [address] [address] Sep, Anxiety disorder, unspecified F41.[address] [place] [address] [id number] [facility] [id number] Sep, Mouth ulcer K12.[address] [place] [address] [id number] [facility] [id number] Sep, Morbid obesity E66.[address] [place] [address] [id number] [facility] [id number] Sep, Allergic rhinitis, unspecified seasonali ty, unspecified trigger J30.9 and Shortness of breath R06.[address] [id number] [facility] [id number] Sep, 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 [facility]PH62821XMONTROSE [facility] [id number] Aug, Mouth abscess K12.2 ; Mouth ulcer K12.1 ; Bloating R14.0 and Morbid obesity E66.[address] [id number] VALLEY [facility] [place] [id number] Aug, [address] [facility] S[facility]RE81339YMONTROSE [facility] [id number] Aug, [address] [facility] SOUTHCP64029SMONTR[facility] [id number] Jul, Major depressive disorder, recurrent, mo derate F33.1 ; Abscess of arm, left L02.414 ; BMI 45.0-49.9, adult Z68.42 and Morbid obesity E66.[address] [id number] [facility] [id number] Jul, [address] [facility] SOUTHHS38595LWILLIAMSTON[place] [id number] Jul, [address] [facility] SOUTHHN15771WWILLIAMSTON[place] [id number] Jun, Pain in right knee M25.561 and Other chr onic pain G89.[address] [id number] [facility] [id number] Jun, Benign essential hypertension I10 ; BMI 45.0-49.9, adult Z68.42 ; Morbid obesity E66.01 ; Vitamin D deficiency E55.9 ; Insomnia G47.00 ; 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 ; Edema R60.9 ; Recurrent major depressive disorder, in partial remission F33.41 ; Chronic fatigue R53.82 ; Acute pain of right knee M25.561 ; Metabolic syndrome E88.81 and Irritable mood R45.4 [facility] [address] [place] [address] [place] [address] Jun, [place] [address] [id number] [id number] Jun, Irritable mood R45.4 [place] [address] [address] May, [facility] [address] [address] May, [place] [address] [address] May, Recurrent major depressive disorder, in partial remission F33.41 ; Mixed obsessional thoughts and acts F42.2 ; 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 and BMI 45.0-49.9, adult Z68.42 [place] [address] [address] Apr, [place] [address] [address] Apr, [place] [address] [address] Apr, [place] [address] [address] Apr, [place] [address] [address] Mar, Mixed obsessional thoughts and acts F42. 2 ; Recurrent major depressive disorder, in partial remission F33.41 ; DANIELA (generalized anxiety disorder) F41.1 and BMI 45.0-49.9, adult Z68.[address] [facility] [address] [id number] [place] [id number] Mar, [place] [address] [id number] [facility] [place] [id number] Mar, BMI 45.0-49.9, adult Z68.42 ; Instabilit y of right knee joint M25.361 and Rash R21 [place] [address] [address] Jan, Recurrent major depressive disorder, in partial remission F33.41 ; Mixed obsessional thoughts and acts F42.2 and BMI 45.0-49.9, adult Z68.42 [facility] [place] [address] [id number] [place] [id number] Jan, [facility] [place] [address] [id number] [place] [id number] Jan, Benign essential hypertension I10 ; BMI 45.0-49.9, adult Z68.42 ; Metabolic syndrome E88.81 and Allergic rhinitis, unspecified seasonality, unspecified trigger J30.9 [facility] [address] [place] [id number] [place] [address] Dec, DANIELA (generalized anxiety disorder) F41.1 and Depressive disorder, not elsewhere classified F32.[address] [place] [place] [address] [id number] [place] [id number] Dec, Recurrent major depressive disorder, in partial remission F33.[address] [facility] [address] [id number] [place] [id number] Dec, [place] [address] [id number] [place] [id number] Nov, [place] [address] [id number] [place] [id number] Nov, Recurrent major depressive disorder, in partial remission F33.41 [place] [address] [place] [id number] [place] [address] Nov, Recurrent major depressive disorder, in partial remission F33.41 ; Mixed obsessional thoughts and acts F42.2 ; DANIELA (generalized anxiety disorder) F41.1 and BMI 45.0-49.9, adult Z68.[address] [facility] [address] [id number] [place] [id number] Nov, [facility] [place] [address] [id number] [place] [id number] Nov, Other conjunctivitis of both eyes H10.89 and Sciatica, right side M54.31 [facility] [place] [address] [id number] [place] [id number] Nov, [facility] [place] [address] [id number] [place] [id number] Nov, [facility] [address] [id number] [place] [id number] October, [place] [address] [id number] [place] [id number] October, [facility] [address] [place] [address] [id number] [place] [address] October, BMI 45.0-49.9, adult Z68.42 ; Mixed obse ssional thoughts and acts F42.2 ; Recurrent major depressive disorder, in partial remission F33.41 and DANIELA (generalized anxiety disorder) F41.[address] [place] [address] [id number] [place] [id number] October, Benign essential hypertension I10 ; Morb id obesity E66.01 and BMI 45.0- 49.9, adult Z68.[address] [facility] [address] [id number] [place] [id number] Sep, [facility] [place] [address] [id number] [place] [id number] Sep, [place] [address] [id number] [place] [id number] Sep, [facility] [address] [id number] [place] [facility] [id number] Sep, Hospital discharge follow-up Z09 ; Aller gic rhinitis, unspecified seasonality, unspecified trigger J30.9 and Shortness of breath R06.[address] [facility] [address] [id number] [place] [id number] Sep, Recurrent major depressive disorder, in partial remission F33.[address] [place] [place] [address] [id number] [place] [id number] Aug, Irritable mood R45.4 [facility] [address] [address] [id number] [place] [address] Aug, [facility] [address] [id number], [place] [id number] Jul, Benign essential hypertension I10 ; Robert a R60.9 and Impacted cerumen of left ear H61.22 [place] [address] [facility] [place] [address] 14 Jul, 2017 Major depression F32.9 ; Recurrent major depressive disorder, in partial remission F33.41 and Anxiety F41.9 [place] [address] [facility] [place] [address] Jun, Major depression F32.9 ; Recurrent major depressive disorder, in partial remission F33.41 and Anxiety F41.[address] [facility] [address] [id number] [id number] Jun, Major depression F32.9 ; Morbid obesity E66.01 ; Irritable mood R45.4 ; Hand weakness R29.898 and Vitamin D deficiency E55.[address] [place] [address] [id number][place] [id number] Jun, [facility] [id number] [place] [id number] May, Major depression F32.9 [place] [address] [place] [id number] [place] [address] May, Major depression F32.[address] [place] [id number] [place] [address] [id number] May, BMI 50.0-59.9, adult Z68.43 ; Major depr ession F32.9 ; Anxiety F41.9 ; Hypertrophic toenail L60.2 and Pain of left great toe M79.[address] [place] [place] [address] [id number] [id number] May, Recurrent major depressive disorder, in partial remission F33.41 [place] [address] [address] Apr, [facility] [place] [address] [id number] [place] [id number] Apr, [facility] [address] [address] Apr, Major depression F32.9 [facility] [place] [address] [id number] [place] [id number] Apr, Severe episode of recurrent major depres sive disorder, without psychotic features F33.2 ; Anxiety F41.9 and Insomnia G47.00 [facility] [place] [address] [id number] [place] [id number] Apr, [facility] [address] [address] Apr, [facility] [place] [address] [id number] [place] [id number] Apr, [facility] [place] [address] [id number] [place] [id number] Mar, [facility] [place] [address] [id number] [place] [id number] Mar, Allergic conjunctivitis of both eyes H10 .13 [facility] [address] [address] Mar, Major depression F32.9 [facility] [place] [address] [id number] [place] [id number] Mar, Metabolic syndrome E88.81 ; History of g astric bypass Z98.890 ; Benign essential hypertension I10 ; Allergic conjunctivitis of both eyes H10.13 and Morbid obesity E66.01 [facility] [address] [address] Mar, Major depression F32.9 [facility] [place] [address] [id number] [place] [id number] Feb, [facility] [address] [address] Feb, Major depression F32.[address] [facility] [place] [address] [id number] [place] [id number] Feb, Subacute maxillary sinusitis J01.00 and Bronchitis J40 [address] [address] Feb, Major depressive disorder, recurrent, mo derate F33.[address] [facility] [address] [id number] [place] [id number] Jan, [facility] [address] [id number] [place] [id number] Jan, Acute non-recurrent maxillary sinusitis J01.00 and Skin tag L91.[address] [facility] [address] [id number] [place] [id number] Jan, Cough R05 and Sinus congestion R09.[address] [id number] [place] [id number] Jan, [address] [id number] [place] [id number] Jan, Benign essential hypertension I10 ; Hist ory of gastric bypass Z98.890 and Nausea and vomiting in adult R11.[address] [address] Jan, Major depressive disorder, recurrent, mo derate F33.[address] [address] Dec, Insomnia G47.00 ; Recurrent major depres sive disorder, in partial remission F33.41 and Morbid obesity E66.[address] [facility] [address] [id number] [place] [id number] Dec, [facility] [place] [address] [id number] [place] [id number] Dec, Chronic bacterial conjunctivitis of left eye H10.402 [facility] [place] [address] [id number] [place] [id number] Nov, [facility] [place] [address] [id number] [id number] Nov, Dental examination Z01.20 [address]07757[place] [id number] Nov, Benign essential hypertension I10 ; Hist ory of gastric bypass Z98.890 and Nausea and vomiting in adult R11.2 [place] [address] [address] 13 Nov, 2016 Major depressive disorder, recurrent, mo derate F33.1 ; Generalized anxiety disorder F41.1 and Insomnia due to other mental disorder F51.[address] [address] Nov, Recurrent major depressive disorder, in partial remission F33.41 ; Insomnia G47.00 and Morbid obesity E66.01 [facility] [address] [facility] [place] [id number] October, Abscess of left arm L02.[address] [address] October, Morbid obesity E66.01 ; Major depression F32.9 and Recurrent major depressive disorder, in partial remission F33.41 [address]07757[place] [id number] Sep, Benign essential hypertension I10 ; Morb id obesity E66.01 ; S/P gastric bypass Z98.84 ; Abscess L02.91 and Chronic bacterial conjunctivitis of left eye H10.402 [address]07757[place] [id number] Sep, Dental examination Z01.[address] [address] Sep, Morbid obesity E66.01 ; Major depression F32.9 and Recurrent major depressive disorder, in partial remission F33.41 [place] [address] [address] Jul, [place] [address] [address] Jul, Major depressive disorder, recurrent, mo derate F33.1 [place] [address] [address] Jul, Major depressive disorder, recurrent, mo derate F33.1 and Generalized anxiety disorder F41.[address] [facility] [address] [id number] [place] [id number] Jul, Cough R05 [place] [address] [address] Jul, Morbid obesity E66.01 ; Major depression F32.9 and Recurrent major depressive disorder, in partial remission F33.[address] [facility] [address] [id number] [place] [facility] [id number] Jul, [facility] [address] [id number] [place] [id number] Jul[place] [facility] [address] [id number] [place] [facility] [id number] Jul, Gastroenteritis K52.9 and Cough R05 [facility] [address] [id number] [facility] [facility] [id number] Jun, Acute bacterial conjunctivitis of left e ye H10.32 [place] [address] [address] Jun, [place] [address] [address] Jun, Recurrent major depressive disorder, in partial remission F33.41 [place] [address] [address] May, Major depression F32.9 and Morbid obesit y E66.01 [place] [address] [address] May, [facility] [address] [id number] [place] [id number] May, Thrush B37.0 [place] [address] [address] 15 Apr, 2016 Major depressive disorder, recurrent, mo derate F33.1 [place] [address] [address] 15 Apr, 2016 Insomnia G47.00 ; Major depression F32.9 and Recurrent major depressive disorder, in partial remission F33.41 [place] [address] [address] Apr, [place] [address] [address] Apr, Major depression F32.9 and Recurrent romi or depressive disorder, in partial remission F33.[address] [facility] [address] [id number] [id number] Mar, Benign essential hypertension I10 ; Morb id obesity E66.01 ; Impacted cerumen of both ears H61.23 ; Laceration of finger of right hand, initial encounter S61.219A and Encounter for immunization Z23 [place] [address] [address] 17 Mar, 2016 [place] [address] [address] Mar, [place] [address] [address] Mar, [facility] [address] [id number] [id number] Feb, Nausea R11.0 ; Blood in the stool K92.1 and Benign essential hypertension I10 [place] [address] [address] Feb, Major depression F32.9 and Recurrent romi or depressive disorder, in partial remission F33.[address] [facility] [address] [id number] [id number] Feb, [facility] [address] [id number] [id number] Feb, Recurrent major depressive disorder, in partial remission F33.[address] [facility] [place] [address] [id number] [place] [id number] Jan, [facility] [place] [address] [id number] [place] [id number] Jan, Benign essential hypertension I10 ; Robert a R60.9 and Hyperlipidemia, unspecified hyperlipidemia type E78.5 [facility] [place] [address] [id number] [place] [id number] Jan, Recurrent major depressive disorder, in partial remission F33.41 [facility] [place] [address] [facility]07757G [place] [id number] Jan, [facility] [place] [address] [id number] [place] [id number] Jan, [facility] [place] [address] [id number] [place] [id number] Jan, [facility] [address] [place] [id number] [place] [address] Jan, [facility] [address] [address] Dec, [facility] [address] [address] Nov, [facility] [address] [address] Nov, Major depression F32.9 [facility] [address] [address] Nov, [facility] [address] [address] Nov, [facility] [address] [address] Nov, Major depressive disorder, recurrent epi sode, mild F33.0 and Anxiety F41.[address] [facility] [place] [address] [id number] [place] [id number] Nov, [facility] [place] [address] [id number] [place] [id number] October, Left elbow pain M25.522 and Other season al allergic rhinitis J30.2 [facility] [place] [address] [id number] [id number] October, [facility] [address] [address] October, Major depressive disorder, recurrent, mo derate F33.1 [facility] [address] [address] October, Major depression F32.9 [place] [address] [address] Sep, Superior or callus L84 and Onychomycosis B35 .1 [facility] [address] [address] Sep, Major depressive disorder, recurrent, mo derate F33.1 [facility] [address] [address] Sep, Major depression F32.9 [place] [address] [address] Sep, Moderate episode of recurrent major depr essive disorder F33.1 [facility] [address] [facility] [place] [id number] Sep, Muscle strain T14.8 [facility] [address] [address] Aug, Major depression F32.9 [facility] [address] [address] Aug, Major depression F32.9 [facility] [address] [address] Jul, Morbid obesity E66.01 and Major depressi on F32.9 [facility] [address] [address] Jul, Depression, major, recurrent, moderate F 33.1 [facility] [address] [id number] [facility] [id number] Jul, [place] [address] [address] Jul, [facility] [address] [address] 16 Jul, 2015 Major depression F32.9 and Morbid obesit y E66.01 [address] [id number] [facility] [id number] Jul, Type II diabetes mellitus E11.9 ; Callus of foot L84 ; Benign essential hypertension I10 and Renal insufficiency N28.9 [place] [address] [address] 09 Jul, 2015 Depression, major, recurrent, moderate F 33.1 [place] [address] [address] 05 Jul, 2015 Major depression F32.9 [place] [address] [address] Jul, [place] [address] [address] Jun, Major depression F32.9 [place] [address] [address] Jun, Major depressive disorder, recurrent, mo derate F33.1 [place] [address] [address] Jun, [place] [address] [address] Jun, Major depressive disorder, recurrent, mo derate F33.1 and Major depression F32.[address] [id number] [facility] [id number] Jun, Type II diabetes mellitus E11.9 [place] [address] [address] Jun, Depression, major, recurrent, moderate F 33.1 [place] [address] [address] May, Major depressive disorder, recurrent, mo derate F33.1 [place] [address] [address] May, [address] [id number] May, Edema R60.9 [place] [address] [address] May, Insomnia G47.00 and Major depression F32 .[address] [id number] 15 May, 2015 Morbid obesity E66.01 ; Edema R60.9 ; Sh ortness of breath R06.02 ; Benign essential hypertension I10 and Renal insufficiency N28.[address] [id number] May, Hyperlipemia 272.4 and Renal insufficien cy N28.[address] [address] Apr, Major depression F32.9 [place] [address] [address] Apr, [address] [address] Apr, Major depressive disorder, recurrent, mo derate F33.[id number] [place] [id number] Apr, Type II diabetes mellitus E11.9 ; Benign essential hypertension I10 ; Edema R60.9 and Renal insufficiency N28.9 [place] [address] [address] Mar, Major depressive disorder, recurrent, mo derate F33.1 [place] [address] [address] Mar, [place] [address] [address] Mar, Major depression F32.[address] [facility] [address] [id number] [id number] 08 Mar, 2015 Morbid obesity E66.01 ; Benign essential hypertension I10 and Type II diabetes mellitus E11.9 [place] [address] [address] Feb, Major depressive disorder, recurrent, mo derate F33.[address] [address] Feb, Major depressive disorder, recurrent epi sode, in partial or unspecified remission 296.35 ; Anxiety state, unspecified 300.00 and Morbid obesity 278.[address] [address] Feb, [address]07757[place] [id number] Feb, Vomiting 787.03 and Viral syndrome 079.[address] [address] 15 Feb, 2015 Major depression, recurrent 296.30 ; Gen eralized anxiety disorder 300.02 and No condition on Peebles II V71.09 [address]07757[place] [id number] Feb, Skin tag 701.[address] [address] Feb, [address] [address] Jan, Depression, major, recurrent, moderate 2 96.32 [place] [address] [address] [id number] [id number] Jan, Nausea and vomiting 787.01 ; Rib pain on right side 786.50 and Fall on or from sidewalk curb E880.[address] [address] Jan, [place] [id number] Jan, Major depressive disorder, recurrent epi sode, in partial or unspecified remission 296.35 and Anxiety state, unspecified 300.[address] [id number] Jan, [address] [address] Jan, Depression, major, recurrent, moderate [address] [address] Jan, Major depression, recurrent 296.30 ; No condition on Peebles II V71.09 and No condition on axis III V71.09 [place] [id number] Jan, Drug-induced nausea and vomiting 787.[address] [address] Jan, Depression, major, recurrent, moderate [address] [address] Dec, Depression, major, recurrent, moderate 2 96.32 [address]07757[place] [id number] Dec, Morbid obesity 278.01 ; Metabolic syndro me 277.7 ; Hyperlipemia 272.4 ; Benign essential hypertension 401.1 ; Dietary counseling V65.3 ; Exercise counseling V65.41 and Inflamed skin tag 701.[address] [address] Dec, Depression, major, recurrent, moderate [address] [address] Dec, [place] [address]88[address] Dec, Major depression, recurrent 296.30 ; Anx iety, generalized 300.02 and No condition on Peebles II V71.09 [place] [address] Dec, Depression, major, recurrent, moderate 2 96.32 [place] [address] Dec, Major depressive disorder, recurrent epi sode, moderate 296.32 [address]2546 Dec, Depression, major, recurrent, moderate 2 96.32 [address]2546 Dec, Depression, major, recurrent, moderate 2 96.32 [place] [address] Dec, Depression, major, recurrent, moderate 2 96.32 [place] [address] Dec, Depression, major, recurrent, moderate 2 96.32 [place] [address] Nov, Depression, major, recurrent, moderate 2 96.32 [place] [address] Nov, Major depression 296.20 ; Social phobia 300.23 and No condition on Peebles II V71.09 [place] [address] 16 Nov, 2014 Depression, major, recurrent, moderate 2 96.32 [place] [address]88[address] 09 Nov, 2014 Major depressive disorder, recurrent epi sode, moderate 296.32 and Generalized anxiety disorder 300.[address] [address] 09 Nov, 2014 Depression, major, recurrent, moderate 2 96.32 [facility] [address] [place] [id number] [place] [address] 04 Nov, 2014 Depression, major, recurrent, moderate 2 96.32 [facility] [address] [id number] [place] [address] 07 Oct, 2014 Generalized anxiety disorder 300.02 ; No condition on Peebles II V71.09 and Major depressive disorder, recurrent 296.30 [facility] [address] [place] [id number] [place] [address] Sep, [facility] [address] [address] Sep, [facility] [address] [place] [id number] [place] [address] 24 Aug, 2014 [facility] [address] [address] 24 Aug, 2014 [facility] [address] [place] [id number] [place] [address] Aug, [facility] [address] [address] 23 Aug, 2014 [facility] [address] [place] [id number] [place] [address] 20 Aug, 2014 [facility] [address] [place] [id number] [place] [address] Aug, [facility] [address] [place] [id number] [place] [address] Aug, [facility] [address] [place] [id number] [place] [address] 20 Aug, 2014 [facility] [address] [place] [id number] [place] [address] Aug, [facility] [address] [place] [id number] [place] [address] Aug, [facility] [address] [place] [id number] [place] [address] 13 Aug, 2014 [facility] [address] [facility] [id number] [place] [address] Aug, [facility] [address] [facility]] [id number] [place] [address] Aug, [facility] [address] [id number] [place] [address] Aug, [facility] [address] [id number] [place] [address] Aug, [facility] [address] [facility] 2] [id number] [place] [address] Aug, [facility] [address] [id number] [place] [address] Aug, [facility] [address] [id number] [place] [address] Aug, [facility] [address] [id number] [place] [address] Jul, [facility] [address] [id number] [place] [address] Jul, [facility] [address] [id number] [place] [address] Jul, [facility] [address] [id number] [place] [address] Jul, [facility] [address] [id number] [place] [address] Jul, [facility] [address] [facility]] [id number] [place] [address] Jul, [facility] [address] [id number] [place] [address] Jun, [facility] [address] [id number] [place] [address] Jun, [facility] [address] [id number] [place] [address] Jun, [facility] [address] [id number] [place] [address] Jun, [facility] [address] [id number] [place] [address] Jun, [facility] [address] [id number] [place] [address] Jun, [facility] [address] [id number] [place] [address] Jun, [facility] [address] [id number] [place] [address] Jun, [facility] [address] [id number] [place] [address] Jun, [facility] [address] [id number] [place] [address] Jun, [facility] [address] [id number] [place] [address] Jun, [facility] [address] [id number] [place] [address] Jun, [facility] [address] [place] [id number] Jun, [facility] [address] [id number] [place] [address] Jun, [facility] [address] [id number] [place] [address] Jun, [facility] [address] [id number] [place] [address] Jun, [facility] [address] [id number] [place] [address] May, [facility] [address] [id number] [place] [address] May, [facility] [address] [id number] [place] [address] May, [facility] [address] [id number] [place] [address] May, [facility] [address] [id number] [place] [address] Apr, [facility] [address] [id number] [place] [address] Apr, [facility] [address] [id number] [place] [address] Apr, [facility] [address] [id number] [place] [address] Apr, [facility] [address] [facility] [place] 2] [id number] [place] [address] Apr, [facility] [address] [id number] [place] [address] Apr, [facility] [address] [id number] [place] [address] Apr, [facility] [address] [id number] [place] [address] Apr, [facility] [address] [id number] [place] [address] Apr, [facility] [address] [id number] [place] [address] Apr, [facility] [address] [id number] [place] [address] Apr, [facility] [address] [id number] [place] [address] Apr, [facility] [address] [id number] [place] [address] Apr, [facility] [address] [id number] [place] [address] Apr, [facility] [address] [id number] [place] [address] Apr, [facility] [address] [id number] [place] [address] Apr, [facility] [address] [id number] [place] [address] Apr, [facility] [address] [facility] [place] 2] [id number] [place] [address] Apr, [facility] [address] [id number] [place] [address] Apr, [facility] [address] [id number] [place] [address] Apr, [facility] [address] [id number] [place] [address] Mar, [facility] [address] [id number] [place] [address] Mar, [facility] [address] [id number] [place] [address] Mar, [facility] [address] [id number] [place] [address] Mar, [facility] [address] [id number] [place] [address] Mar, [facility] [address] [id number] [place] [address] Mar, [facility] [address] [id number] [place] [address] Mar, [facility] [address] [id number] [place] [address] Mar, [facility] [address] [id number] [place] [address] Mar, [facility] [address] [id number] [place] [address] Mar, [facility] [address] [id number] [place] [address] Feb, [facility] [address] [id number] [place] [address] Feb, 2013 [facility] [address] [id number] [place] [address] Feb, 2013 [facility] [address] [facility] [place] [facility]] [id number] [place] [address] Feb, [facility] [address] [facility] [place] 2] [id number] [place] [address] Jan, [facility] [address] [facility] [place] 2] [id number] [place] [address] Jan, [facility] [address] [id number] [place] [address] Jan, [facility] [address] [facility] 2] [id number] [place] [address] Jan, [facility] [address] [facility] 2] [id number] [place] [address] Jan, [facility] [address] [id number] [place] [address] Jan, [facility] [address] [id number] [place] [address] Dec, [facility] [address] [id number] [place] [address] Dec, [facility] [address] [id number] [place] [address] Nov, [facility] [address] [id number] [place] [address] Nov, [facility] [address] [id number] [place] [address] Nov, [facility] [address] [id number] [place] [address] Nov, [facility] [address] [facility] [place] 2] [id number] [place] [address] Nov, [facility] [address] [id number] [place] [address] Nov, [facility] [address] [id number] [place] [address] Sep, [facility] [address] [id number] [place] [address] Sep, [facility] [id number] [place] [address] Sep, [facility] [id number] [place] [address] Sep, [facility] [id number] [place] [address] Aug, [facility] [id number] [place] [address] Aug, [facility] [id number] [place] [address] Jul, [facility] [id number] [place] [address] Jul, [facility] [id number] [place] [address] Jun, [facility] [id number] [place] [address] Jun, [facility] [id number] [place] [address] Jun, [facility] [id number] [place] [address] Jun, [facility] [id number] [place] [address] May, [facility] [id number] [place] [address] 24 May, 2013 [facility] [id number] [place] [address] May, [facility] [id number] [place] [address] May, [facility] [id number] [place] [address] May, [facility] [id number] [place] [address] May, [facility] [id number] [place] [address] Apr, [facility] [id number] [place] [address] Apr, [facility] [id number] [place] [address] Apr, [facility] [id number] [place] [address] Apr, [facility] [id number] [place] [address] Mar, [facility] [id number] [place] [address] Mar, [facility] [id number] [place] [address] Mar, [facility] [id number] [place] [address] Mar, [facility] [id number] [place] [address] Feb, [facility] [address] [id number] [id number] Jan, [facility] [id number] [place] [address] Jan, [facility] [id number] [place] [address] Dec, [facility] [id number] [place] [address] 15 Dec, 2012 [facility] [id number] [place] [address] Dec, [facility] [address] [id number] [place] [id number] Dec, [facility] [id number] [place] [address] Nov, [facility] [id number] [place] [address] 14 Nov, 2012 [facility] [id number] [place] [address] Nov, [facility] [id number] [place] [address] Nov, [facility] [address] [id number] [place] [address] Nov, [facility] [address] [id number] October, [facility] [address] [id number] October, [facility] [address] [id number] Aug, [facility] [id number] [place] [address] Nov, IMMUNIZATIONS No Known Immunizations SOCIAL HISTORY Never Assessed REASON FOR VISIT PLAN OF CARE VITAL SIGNS Height 72 in 2013-12-18 Weight 454.8 lbs 2013-12-18 Temperature 98.2 degrees Fahrenheit 2013-12-18 Heart Rate 86 bpm 2013-12-18 Respiratory Rate 20 2013-12-18 Blood pressure systolic 132 mmHg 2013-12-18 Blood pressure diastolic 84 mmHg 2013-12-18 MEDICATIONS Unknown Medications RESULTS No Results PROCEDURES [...] 04/2019 Hospitalization History gastric sleeve Hospitalization History [facility] Trouble with left shoulder blade 08/2017
--- OUTSIDE RECORDS SUMMARY | 2019-11-29 09:02 | XMS REPORT ---
Author Author Curt DIAZ Organization [facility] Address [address] [place] [address] Care Team Providers Care Manager Science Name Role Phone JOE CHRIS Unavailable PROBLEMS Type Condition ICD9-CM Code BIB15-XX Code Onset Dates Condition S tatus SNOMED Code Problem Benign essential hypertension I10 Active 4188563 Problem Insomnia G47.00 Active 328783139 Problem Edema R60.9 Active 847433410 Problem Morbid obesity E66.01 Active 10437 6002 Problem Metabolic syndrome E88.81 Active 2 53720540 Problem Renal insufficiency N28.9 Active 016556276 Problem Vitamin D deficiency E55.9 Active 13638928 Problem Severe episode of recurrent major depressive disorder, without psychotic features F33.2 Active 65964228 Problem BMI 45.0-49.9, adult Z68.42 Active 192129128 Problem Sciatica, right side M54.31 Active [id number] Problem Chronic fatigue R53.82 Active 8422 9001 Problem Hammer toe of right foot M20.41 Activ e 174215417 Problem DANIELA (generalized anxiety disorder) F41.1 Active 74327965 Problem Falling episodes R29.6 Active 161 104782 Problem Mixed obsessional thoughts and acts F42.2 Active 98487208 Problem Hyperlipemia E78.5 Active 7560506 4 Problem Other chronic pain G89.29 Active 8 9566783 Problem Borderline personality disorder F60.3 Active 06183727 Problem Callous ulcer, limited to breakdown of skin L98.49 1 Active Problem Hammer toe of second toe of right foot M20.41 Active 592130853 ALLERGIES No Information ENCOUNTERS Encounter Location Date Diagnosis [facility] [address] [facility] [id number] [place] [id number] Dec, [facility] [address] [facility] [id number] Aug, [facility] [id number] [place] [address] Jul, [facility] [address] [address] Jul, [facility] [id number] [place] [address] 14 Jul, 2019 [facility] [address] [address] Jul, [facility] [address] [address] 07 Jul, 2019 [facility] [address] [address] Jun, DANIELA (generalized anxiety disorder) F41.1 ; Severe episode of recurrent major depressive disorder, without psychotic features F33.2 ; Mixed obsessional thoughts and acts F42.2 and Borderline personality disorder F60.3 [facility] [place] [address] [id number] [place] [id number] Jun, [facility] [place] [address] [id number] [place] [id number] Jun, [facility] [id number] [place] [address] Jun, [facility] [id number] [place] [address] Jun, DANIELA (generalized anxiety disorder) F41.1 ; Severe episode of recurrent major depressive disorder, without psychotic features F33.2 ; Mixed obsessional thoughts and acts F42.2 and Borderline personality disorder F60.3 [facility] [place] [address] [id number] [place] [id number] Jun, [facility] [place] [address] [id number] [place] [id number] Jun, [facility] [place] [address] [id number] [place] [id number] Jun, [facility] [place] [address] [id number] [place] [id number] Jun, Benign essential hypertension I10 ; Morb id obesity E66.01 ; Severe episode of recurrent major depressive disorder, without psychotic features F33.2 ; Excess skin L98.7 and Hyperlipemia E78.5 [place] [address] [address] Jun, [place] [address] [address] May, [place] [address] [address] May, Severe episode of recurrent major depres sive disorder, without psychotic features F33.2 ; Mixed obsessional thoughts and acts F42.2 ; DANIELA (generalized anxiety disorder) F41.1 and Borderline personality disorder F60.3 [place] [address] [address] May, [place] [address] [address] May, DANIELA (generalized anxiety disorder) F41.1 ; Severe episode of recurrent major depressive disorder, without psychotic features F33.2 ; Mixed obsessional thoughts and acts F42.2 and Borderline personality disorder F60.3 [place] [address] [address] May, [place] [address] [address] May, [place] [address] [address] May, Severe episode of recurrent major depres sive disorder, without psychotic features F33.2 ; Mixed obsessional thoughts and acts F42.2 ; Borderline personality disorder F60.3 and DANIELA (generalized anxiety disorder) F41.1 [facility] [address] [facility]757[address] [place] [id number] May, Caries K02.9 [facility] [address] [facility] [address] [id number] [place] [id number] May, Benign essential hypertension I10 [facility] [place] [address] [id number] [place] [id number] Apr, [facility] [place] [address] [id number] [place] [id number] Apr, Benign essential hypertension I10 [facility] [address] [address] Apr, Borderline personality disorder F60.3 ; DANIELA (generalized anxiety disorder) F41.1 ; Mixed obsessional thoughts and acts F42.2 and Severe episode of recurrent major depressive disorder, without psychotic features F33.2 [facility] [place] [address] [id number] [place] [id number] Apr, [facility] [place] [address] [id number] [place] [id number] Apr, Benign essential hypertension I10 [facility] [address] [address] Apr, Severe episode of recurrent major depres sive disorder, without psychotic features F33.2 ; DANIELA (generalized anxiety disorder) F41.1 ; Borderline personality disorder F60.3 and Mixed obsessional thoughts and acts F42.2 [facility] [address] [id number] Apr, Dental examination Z01.20 [facility] [address] [id number] Apr, Caries K02.9 and Dental examination Z01. 20 [facility] [address] [address] Apr, DANIELA (generalized anxiety disorder) F41.1 ; Severe episode of recurrent major depressive disorder, without psychotic features F33.2 ; Mixed obsessional thoughts and acts F42.2 and Borderline personality disorder F60.3 [facility] [address] [address] Mar, Severe episode of recurrent major depres sive disorder, without psychotic features F33.2 ; Mixed obsessional thoughts and acts F42.2 ; Borderline personality disorder F60.3 and DANIELA (generalized anxiety disorder) F41.1 [facility] [address] [id number] Mar, Severe episode of recurrent major depres sive disorder, without psychotic features F33.2 ; Mixed obsessional thoughts and acts F42.2 ; DANIELA (generalized anxiety disorder) F41.1 and Borderline personality disorder F60.3 [facility] [address] [id number] Mar, Dental examination Z01.20 and Caries K02 [address] [id number] [id number] Mar, Benign essential hypertension I10 and Fa lling episodes R29.6 [facility] [address] [address] Mar, [facility] [address] [id number] Mar, Severe episode of recurrent major depres sive disorder, without psychotic features F33.2 ; Mixed obsessional thoughts and acts F42.2 ; Borderline personality disorder F60.3 and DANIELA (generalized anxiety disorder) F41.1 [facility] [address] [address] Mar, [facility] [address] [address] Mar, [address] [address] [id number] [address] Mar, [facility] [address] [address] Mar, Severe episode of recurrent major depres sive disorder, without psychotic features F33.2 ; Mixed obsessional thoughts and acts F42.2 ; Borderline personality disorder F60.3 and DANIELA (generalized anxiety disorder) F41.1 [facility] [address] [address] Mar, [facility] [address] [place] [id number] 30 Feb, 2019 Dental examination Z01.20 and Periodonti tis K05.30 [place] [address] [address] Feb, DANIELA (generalized anxiety disorder) F41.1 ; Severe episode of recurrent major depressive disorder, without psychotic features F33.2 ; Mixed obsessional thoughts and acts F42.2 and Borderline personality disorder F60.3 [facility] [address] [id number] [id number] Feb, Acute pain of right knee M25.561 ; Fall, initial encounter W19.XXXA ; Benign essential hypertension I10 and Edema R60.9 [place] [address] [address] Feb, [place] [address] [address] Feb, DANIELA (generalized anxiety disorder) F41.1 ; Severe episode of recurrent major depressive disorder, without psychotic features F33.2 ; Mixed obsessional thoughts and acts F42.2 and Borderline personality disorder F60.3 [place] [address] [address] Feb, [place] [address] [address] Jan, [place] [address] [address] Jan, [place] [address] [address] Jan, [facility] [address] [id number] [id number] Jan, Callus of heel L84 ; Fissure in skin R23 .4 and Hammer toe of second toe of right foot M20.41 [facility] [address] [id number] [id number] Jan, [place] [address] [address] Jan, [place] [address] [address] Jan, [place] [address] [address] Jan, Severe episode of recurrent major depres sive disorder, without psychotic features F33.2 ; DANIELA (generalized anxiety disorder) F41.1 ; Mixed obsessional thoughts and acts F42.2 and Borderline personality disorder F60.3 [place] [address] [address] Jan, [place] [address] [id number] [place] [id number] Jan, Benign essential hypertension I10 [facility] [address] [id number] [place] [employer] [place] [id number] Dec, Callous ulcer, limited to breakdown of s kin L98.491 and Morbid obesity E66.01 [place] [address] [address] Dec, [place] [address] [address] Dec, [place] [address] [address] Dec, [place] [address] [address] Dec, [place] [address] [address] Dec, Severe episode of recurrent major depres sive disorder, without psychotic features F33.2 [place] [address] [address] Dec, DANIELA (generalized anxiety disorder) F41.1 ; Severe episode of recurrent major depressive disorder, without psychotic features F33.2 ; Mixed obsessional thoughts and acts F42.2 and 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 [facility] [address] [id number] [place] , [place] [id number] Dec, Morbid obesity E66.01 [facility] [id number] [place] [address] Dec, [facility] [id number] [place] [address] Dec, [facility] [place] [address] [place] [address] Nov, [facility] [address] [id number] [id number] Nov, [facility] [id number] [place] [address] Nov, [facility] [id number] [place] [address] Nov, [facility] [id number] [place] [address] Nov, DANIELA (generalized anxiety disorder) F41.1 ; Severe episode of recurrent major depressive disorder, without psychotic features F33.2 ; Mixed obsessional thoughts and acts F42.2 and 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 [facility] [address] [id number] [place] [id number] Nov, Morbid obesity E66.01 [facility] [id number] [place] [address] Nov, [facility] [id number] [place] [address] Nov, DANIELA (generalized anxiety disorder) F41.1 ; Mixed obsessional thoughts and acts F42.2 ; Severe episode of recurrent major depressive disorder, without psychotic features F33.2 and 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 [facility] [address] [id number] [place] [id number] October, Morbid obesity E66.01 [facility] [address] [id number] [place] [id number] October, Benign essential hypertension I10 and Mo rbid obesity E66.01 [facility] [address] [address] [id number] [id number] October, [facility] [id number] [place] [id number] October, Severe episode of recurrent major depres sive disorder, without psychotic features F33.2 [facility] [address] [id number] [facility] [place] [id number] October, Morbid obesity E66.[id number] [place] [address], [place] [id number] October, [facility] [address] [address] October, Severe episode of recurrent major depres sive disorder, without psychotic features F33.2 ; DANIELA (generalized anxiety disorder) F41.1 ; Mixed obsessional thoughts and acts F42.2 and 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 [id number] [place] [place] [id number] October, Morbid obesity E66.01 [facility] [address] [facility]757B [place] [id number] Sep, Dental examination Z01.20 [facility] [address] [facility] [place] [id number] Sep, [facility] [address] [facility] [id number] 100KS [place] [address] Sep, Sore in mouth K13.79 and Mor bid obesity E66.01 [facility] [id number] [place] [address] Sep, Dental examination Z01.20 [facility] [id number] [place] [address] Sep, Anxiety disorder, unspecified F41.9 [facility] [address] [id number] [facility] [place] [id number] Sep, Mouth ulcer K12.1 [place] [address] [facility] [id number] [place] [id number] Sep, Morbid obesity E66.[address] [facility] RICHMONDWN76484EKINDRED [facility] [place] [id number] Sep, Allergic rhinitis, unspecified seasonali ty, unspecified trigger J30.9 and Shortness of breath R06.[address] [facility] RICHMONDOB14412AKINDRED [facility] [place] [id number] Sep, 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 [address] [id number] [place] [address], [place] [id number] Aug, Mouth abscess K12.2 ; Mouth ulcer K12.1 ; Bloating R14.0 and Morbid obesity E66.01 [id number] [place] [address], [place] [id number] Aug, [id number] [place] [address], [place] [id number] Aug, [id number] [place] [address], [place] [id number] Jul, Major depressive disorder, recurrent, mo derate F33.1 ; Abscess of arm, left L02.414 ; BMI 45.0-49.9, adult Z68.42 and Morbid obesity E66.[address] [facility] RICHMONDRE46343IKINDRED HOS[facility] [place] [id number] Jul, [address] [place] [address], [place] [id number] Jul, [address] [facility] [id number] [place] [address], [place] [id number] Jun, Pain in right knee M25.561 and Other chr onic pain G89.29 [address] [place] [address], [place] [id number] Jun, Benign essential hypertension I10 ; BMI 45.0-49.9, adult Z68.42 ; Morbid obesity E66.01 ; Vitamin D deficiency E55.9 ; Insomnia G47.00 ; 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 ; Edema R60.9 ; Recurrent major depressive disorder, in partial remission F33.41 ; Chronic fatigue R53.82 ; Acute pain of right knee M25.561 ; Metabolic syndrome E88.81 and Irritable mood R45.4 [facility] [address] [address] Jun, [facility] [address] [address] [id number] [place] [employer] [place] [id number] Jun, Irritable mood R45.4 [facility] [address] [address] May, [facility] [address] [address] May, [facility] [address] [address] May, Recurrent major depressive disorder, in partial remission F33.41 ; Mixed obsessional thoughts and acts F42.2 ; 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 2 ; Recurrent major depressive disorder, in partial remission F33.41 ; DANIELA (generalized anxiety disorder) F41.1 and BMI 45.0-49.9, adult Z68.42 [facility] [address] [address] [id number] [place] [id number] Mar, [facility] [place] [address] [id number] [place] [id number] Mar, BMI 45.0-49.9, adult Z68.42 ; Instabilit y of right knee joint M25.361 and Rash R21 [place] [address] [address] Jan, Recurrent major depressive disorder, in partial remission F33.41 ; Mixed obsessional thoughts and acts F42.2 and BMI 45.0-49.9, adult Z68.42 [facility] [address] [id number] [place] [id number] Jan, [facility] [place] [address] [id number] [place] [id number] Jan, Benign essential hypertension I10 ; BMI 45.0-49.9, adult Z68.42 ; Metabolic syndrome E88.81 and Allergic rhinitis, unspecified seasonality, unspecified trigger J30.9 [place] [id number] [place] [address] Dec, DANIELA (generalized anxiety disorder) F41.1 and Depressive disorder, not elsewhere classified F32.9 [facility] [address] [id number] [place] [id number] Dec, Recurrent major depressive disorder, in partial remission F33.41 [facility] [address] [id number] [place] [id number] Dec, [place] [id number] [place] [id number] Nov, [facility] [address] [id number] [place] [id number] Nov, Recurrent major depressive disorder, in partial remission F33.41 [place] [id number] [place] [address] Nov, Recurrent major depressive disorder, in partial remission F33.41 ; Mixed obsessional thoughts and acts F42.2 ; DANIELA (generalized anxiety disorder) F41.1 and BMI 45.0-49.9, adult Z68.[address] [id number] [place] [id number] Nov, [facility] [address] [address] [id number] [place] [id number] Nov, Other conjunctivitis of both eyes H10.89 and Sciatica, right side M54.31 [facility] [place] [address] [id number] [place] [id number] Nov, [facility] [place] [address] [id number] [place] [id number] Nov, [facility] [address] [id number] [place] [id number] October, [address] [address] [id number] [place] [id number] October, [facility] [address] [facility] [place] [address] October, BMI 45.0-49.9, adult Z68.42 ; Mixed obse ssional thoughts and acts F42.2 ; Recurrent major depressive disorder, in partial remission F33.41 and DANIELA (generalized anxiety disorder) F41.[address] [place] [id number] [place] [id number] October, Benign essential hypertension I10 ; Morb id obesity E66.01 and BMI 45.0- 49.9, adult Z68.42 [facility] [address] [address] [id number] [place] [id number] Sep, [facility] [place] [address] [id number] [place] [id number] Sep, [facility] [address] [id number] [place] [id number] Sep, [facility] [place] [address] [id number] [place] [id number] Sep, Hospital discharge follow-up Z09 ; Aller gic rhinitis, unspecified seasonality, unspecified trigger J30.9 and Shortness of breath R06.02 [facility] [place] [address] [id number] [place] [id number] Sep, Recurrent major depressive disorder, in partial remission F33.[address] [id number] [id number] Aug, Irritable mood R45.4 [place] [address] [address] 09 Aug, [address] KU58883RL[place] [id number] Jul, Benign essential hypertension I10 ; Robert a R60.9 and Impacted cerumen of left ear H61.22 [place] [address] [address] 14 Jul, 2017 Major depression F32.9 ; Recurrent major depressive disorder, in partial remission F33.41 and Anxiety F41.9 [place] [address] [address] Jun, Major depression F32.9 ; Recurrent major depressive disorder, in partial remission F33.41 and Anxiety F41.[address] [id number] [id number] Jun, Major depression F32.9 ; Morbid obesity E66.01 ; Irritable mood R45.4 ; Hand weakness R29.898 and Vitamin D deficiency E55.9 [place] [address] [facility] R[place]DMV13557SLONDON[place] [id number] Jun, [address] [address] [id number] [id number] May, Major depression F32.9 [place] [address] [address] May, Major depression F32.[address] [id number] [place] [id number] May, BMI 50.0-59.9, adult Z68.43 ; Major depr ession F32.9 ; Anxiety F41.9 ; Hypertrophic toenail L60.2 and Pain of left great toe M79.[address] [id number] [place] [id number] May, Recurrent major depressive disorder, in partial remission F33.41 [facility] [address] [address] Apr, [facility] [address] [address] [id number] [place] [id number] Apr, [place] [address] [address] Apr, Major depression F32.9 [facility] [address] [address] [id number] [place] [id number] Apr, Severe episode of recurrent major depres sive disorder, without psychotic features F33.2 ; Anxiety F41.9 and Insomnia G47.00 [facility] [place] [address] [id number] [place] [id number] Apr, [place] [address] [address] Apr, [facility] [place] [address] [id number] [place] [id number] Apr, [facility] [address] [address] [id number] [place] [id number] Mar, [facility] [place] [address] [id number] [place] [id number] Mar, Allergic conjunctivitis of both eyes H10 .13 [place] [address] [address] Mar, Major depression F32.9 [facility] [place] [address] [id number] [place] [id number] Mar, Metabolic syndrome E88.81 ; History of g astric bypass Z98.890 ; Benign essential hypertension I10 ; Allergic conjunctivitis of both eyes H10.13 and Morbid obesity E66.01 [facility] [address] [address] Mar, Major depression F32.9 [facility] [address] [address] [id number] [place] [facility] [id number] Feb, [facility] [address] [address] Feb, Major depression F32.9 [facility] [address] [id number] [place] [id number] Feb, Subacute maxillary sinusitis J01.00 and Bronchitis J40 [address] [address] Feb, Major depressive disorder, recurrent, mo derate F33.1 [facility] [address] [id number] [place] [id number] Jan, [place] [id number] [facility] [address], [place] [id number] Jan, Acute non-recurrent maxillary sinusitis J01.00 and Skin tag L91.8 [facility] [address] [id number] [place] [address] [id number] Jan, Cough R05 and Sinus congestion R09.81 [facility] [address] [id number] [place] [address] [id number] Jan, [address] [id number] Jan, Benign essential hypertension I10 ; Hist ory of gastric bypass Z98.890 and Nausea and vomiting in adult R11.[address] [address] Jan, Major depressive disorder, recurrent, mo derate F33.1 [place] [address] [address] Dec, Insomnia G47.00 ; Recurrent major depres sive disorder, in partial remission F33.41 and Morbid obesity E66.01 [facility] [address] [facility] [id number] Dec, [facility] [address] [id number] [place] [address] [id number] Dec, Chronic bacterial conjunctivitis of left eye H10.402 [facility] [address] [facility] [id number] [place] [id number] Nov, [place] [address] [facility] [place] [id number] Nov, Dental examination Z01.[address]07757[place] [id number] Nov, Benign essential hypertension I10 ; Hist ory of gastric bypass Z98.890 and Nausea and vomiting in adult R11.2 [place] [address] [address] 13 Nov, 2016 Major depressive disorder, recurrent, mo derate F33.1 ; Generalized anxiety disorder F41.1 and Insomnia due to other mental disorder F51.05 [place] [address] [address] Nov, Recurrent major depressive disorder, in partial remission F33.41 ; Insomnia G47.00 and Morbid obesity E66.01 [facility] [address] [id number] [place] [id number] October, Abscess of left arm L02.414 [place] [address] [place] [id number] [place] [address] October, Morbid obesity E66.01 ; Major depression F32.9 and Recurrent major depressive disorder, in partial remission F33.41 [place] [address] [facility] [id number] [place] [id number] Sep, Benign essential hypertension I10 ; Morb id obesity E66.01 ; S/P gastric bypass Z98.84 ; Abscess L02.91 and Chronic bacterial conjunctivitis of left eye H10.402 [facility] [address] [facility] [id number] [id number] Sep, Dental examination Z01.20 [facility] [address] [address] Sep, Morbid obesity E66.01 ; Major depression F32.9 and Recurrent major depressive disorder, in partial remission F33.41 [facility] [address] [address] Jul, [facility] [address] [address] Jul, Major depressive disorder, recurrent, mo derate F33.1 [place] [address] [address] Jul, Major depressive disorder, recurrent, mo derate F33.1 and Generalized anxiety disorder F41.1 [facility] [address] [id number] [place] [id number] Jul, Cough R05 [place] [address] [address] Jul, Morbid obesity E66.01 ; Major depression F32.9 and Recurrent major depressive disorder, in partial remission F33.41 [facility] [address] [id number] [place] [id number] Jul, [facility] [place] [address] [id number] [place] [id number] Jul, [facility] [place] [address] [id number] [place] [id number] Jul, Gastroenteritis K52.9 and Cough R05 [facility] [address] [id number] [place] [id number] Jun, Acute bacterial conjunctivitis of left e ye H10.32 [facility] [address] [address] Jun, [place] [address] [address] Jun, Recurrent major depressive disorder, in partial remission F33.41 [place] [address] [address] May, Major depression F32.9 and Morbid obesit y E66.01 [place] [address] [address] May, [facility] [address] [id number] [id number] May, Thrush B37.0 [place] [address] [address] Apr, Major depressive disorder, recurrent, mo derate F33.1 [place] [address] [address] Apr, Insomnia G47.00 ; Major depression F32.9 and Recurrent major depressive disorder, in partial remission F33.41 [place] [address] [address] Apr, [place] [address] [address] Apr, Major depression F32.9 and Recurrent romi or depressive disorder, in partial remission F33.[address] [place] [address] [id number] [id number] Mar, Benign essential hypertension I10 ; Morb id obesity E66.01 ; Impacted cerumen of both ears H61.23 ; Laceration of finger of right hand, initial encounter S61.219A and Encounter for immunization Z23 [place] [address] [address] 17 Mar, 2016 [place] [address] [address] 13 Mar, 2016 [place] [address] [address] Mar, [place] [address] [id number] [id number] 29 Feb, 2016 Nausea R11.0 ; Blood in the stool K92.1 and Benign essential hypertension I10 [place] [address] [address] Feb, Major depression F32.9 and Recurrent romi or depressive disorder, in partial remission F33.[address] [place] [address] [id number] [place] [id number] Feb, [facility] [place] [address] [id number] [place] [id number] Feb, Recurrent major depressive disorder, in partial remission F33.[address] [facility] [place] [address] [id number] [place] [id number] Jan, [facility] [place] [address] [id number] [place] [id number] Jan, Benign essential hypertension I10 ; Robert a R60.9 and Hyperlipidemia, unspecified hyperlipidemia type E78.[address] [facility] [place] [address] [id number] [place] [id number] Jan, Recurrent major depressive disorder, in partial remission F33.41 [facility] [place] [address] [id number] [place] [id number] Jan, [facility] [place] [address] [id number] [place] [id number] Jan, [facility] [place] [address] [id number] [place] [id number] Jan, [facility] [address] [place] [id number] [place] [address] Jan, [facility] [address] [address] Dec, [facility] [address] [address] Nov, [facility] [address] [id number] [place] [address] Nov, Major depression F32.9 [facility] [address] [address] Nov, [facility] [address] [address] Nov, [facility] [address] [address] Nov, Major depressive disorder, recurrent epi sode, mild F33.0 and Anxiety F41.9 [facility] [address] [id number] [id number] Nov, [place] [address] [id number] [facility] [place] [id number] October, Left elbow pain M25.522 and Other season al allergic rhinitis J30.[address] [id number] [place] [address], [place] [id number] October, [place] [address] [address] October, Major depressive disorder, recurrent, mo derate F33.1 [place] [address] [address] October, Major depression F32.9 [place] [address] [address] Sep, [place] or callus L84 and Onychomycosis B35 .1 [place] [address] [address] Sep, Major depressive disorder, recurrent, mo derate F33.1 [place] [address] [address] Sep, Major depression F32.9 [place] [address] [address] Sep, Moderate episode of recurrent major depr essive disorder F33.[address] [place] [address] [id number] [facility] [place] [id number] Sep, Muscle strain T14.8 [place] [address] [address] Aug, Major depression F32.9 [facility] [address] [address] Aug, Major depression F32.9 [facility] [address] [address] Jul, Morbid obesity E66.01 and Major depressi on F32.9 [place] [address] [place] [id number] Jul, Depression, major, recurrent, moderate F 33.1 [address]07757[place] [id number] Jul, [place] [address] [address] Jul, [place] [address] [address] 16 Jul, 2015 Major depression F32.9 and Morbid obesit y E66.01 [facility] [address] [facility]07757[place] [id number] 11 Jul, 2015 Type II diabetes mellitus E11.9 ; Callus of foot L84 ; Benign essential hypertension I10 and Renal insufficiency N28.9 [place] [address] [address] 09 Jul, 2015 Depression, major, recurrent, moderate F 33.1 [place] [address] [address] 05 Jul, 2015 Major depression F32.9 [place] [address] [address] 04 Jul, 2015 [place] [address] [address] Jun, Major depression F32.9 [place] [address] [address] Jun, Major depressive disorder, recurrent, mo derate F33.1 [place] [address] [address] Jun, [place] [address] [address] Jun, Major depressive disorder, recurrent, mo derate F33.1 and Major depression F32.[address] [facility]66[place] [id number] Jun, Type II diabetes mellitus E11.9 [place] [address] [place] [id number] Jun, Depression, major, recurrent, moderate F 33.1 [place] [address] [address] May, Major depressive disorder, recurrent, mo derate F33.1 [place] [address] [address] May, [address] [id number] May, Edema R60.[address] [address] 17 May, 2015 Insomnia G47.00 and Major depression F32 .[address] [id number] 15 May, 2015 Morbid obesity E66.01 ; Edema R60.9 ; Sh ortness of breath R06.02 ; Benign essential hypertension I10 and Renal insufficiency N28.9 [place] [id number] 14 May, 2015 Hyperlipemia 272.4 and Renal insufficien cy N28.9 [place] [address] [address] Apr, Major depression F32.9 [place] [address] [address] Apr, [address] [address] Apr, Major depressive disorder, recurrent, mo derate F33.1 [place] [id number] Apr, Type II diabetes mellitus E11.9 ; Benign essential hypertension I10 ; Edema R60.9 and Renal insufficiency N28.9 [place] [address] [address] Mar, Major depressive disorder, recurrent, mo derate F33.1 [place] [address] [address] Mar, [place] [address] [address] Mar, Major depression F32.9 [facility] [address] [facility]07757[place] [id number] 08 Mar, 2015 Morbid obesity E66.01 ; Benign essential hypertension I10 and Type II diabetes mellitus E11.9 [place] [address] [address] Feb, Major depressive disorder, recurrent, mo derate F33.1 [place] [address] [address] Feb, Major depressive disorder, recurrent epi sode, in partial or unspecified remission 296.35 ; Anxiety state, unspecified 300.00 and Morbid obesity 278.01 [place] [address] [address] Feb, [place] [address] [facility]07757[place] [id number] 16 Feb, 2015 Vomiting 787.03 and Viral syndrome 079.[address] [address] 15 Feb, 2015 Major depression, recurrent 296.30 ; Gen eralized anxiety disorder 300.02 and No condition on [place] II V71.09 [facility] [address] [facility] [place] [address] [id number] Feb, Skin tag 701.9 [place] [address] [address] Feb, [place] [address] [address] Jan, Depression, major, recurrent, moderate 2 96.32 [address]07757[place] [id number] Jan, Nausea and vomiting 787.01 ; Rib pain on right side 786.50 and Fall on or from sidewalk curb E880.[address] [address] Jan, [address] Jan, Major depressive disorder, recurrent epi sode, in partial or unspecified remission 296.35 and Anxiety state, unspecified 300.[address] [id number] Jan, [address] [address] Jan, Depression, major, recurrent, moderate [address] [address] Jan, Major depression, recurrent 296.30 ; No condition on [place] II V71.09 and No condition on axis III V71.09 [address]07757[place] [id number] Jan, Drug-induced nausea and vomiting 787.[address] [address] Jan, Depression, major, recurrent, moderate [address] [address] Dec, Depression, major, recurrent, moderate 2 96.32 [address] [place] [id number] Dec, Morbid obesity 278.01 ; Metabolic syndro me 277.7 ; Hyperlipemia 272.4 ; Benign essential hypertension 401.1 ; Dietary counseling V65.3 ; Exercise counseling V65.41 and Inflamed skin tag 701.[address] [address] Dec, Depression, major, recurrent, moderate 2 96.32 [place] [address] Dec, [place] [address]89[address] Dec, Major depression, recurrent 296.30 ; Anx iety, generalized 300.02 and No condition on [place] II V71.09 [place] 108982[address] Dec, Depression, major, recurrent, moderate 2 96.32 [place] [address] Dec, Major depressive disorder, recurrent epi sode, moderate 296.32 [place] 108982[address] Dec, Depression, major, recurrent, moderate [address] [address] Dec, Depression, major, recurrent, moderate 2 96.32 [place] 108982[address] Dec, Depression, major, recurrent, moderate 2 96.32 [place] 108982[address] Dec, Depression, major, recurrent, moderate 2 96.32 [place] 108982[address] Nov, Depression, major, recurrent, moderate 2 96.32 [place] 1089[address] Nov, Major depression 296.20 ; Social phobia 300.23 and No condition on [place] II V71.09 [place] 36519762[address]2546 Nov, Depression, major, recurrent, moderate [address] [id number] [place] [address] 09 Nov, 2014 Major depressive disorder, recurrent epi sode, moderate 296.32 and Generalized anxiety disorder 300.02 [facility] [address] [place] [id number] [place] [address] 09 Nov, 2014 Depression, major, recurrent, moderate 2 96.32 [facility] [address] [place] [id number] [place] [address] 04 Nov, 2014 Depression, major, recurrent, moderate 2 96.32 [facility] [address] [place] [id number] [place] [address] October, Generalized anxiety disorder 300.02 ; No condition on [place] II V71.09 and Major depressive disorder, recurrent 296.30 [facility] [address] [place] [id number] [place] [address] 14 Sep, 2014 [facility] [address] [address] Sep, [facility] [address] [place] [id number] [place] [address] Aug, [facility] [address] [address] Aug, [facility] [address] [address] Aug, [facility] [address] [address] Aug, [facility] [address] [place] [id number] [place] [address] Aug, [facility] [address] [address] Aug, [facility] [address] [place] [id number] [place] [address] Aug, [facility] [address] [place] [id number] [place] [address] Aug, [facility] [address] [address] 13 Aug, 2014 [facility] [address] [facility] [id number] [facility] [place] [address] 13 Aug, 2014 [facility] [address] [id number] [facility] [place] [address] 13 Aug, 2014 [facility] [address] [id number] [facility] [place] [address] 13 Aug, 2014 [facility] [address] [id number] [facility] [place] [address] 12 Aug, 2014 [facility] [address] [id number] [facility] [place] [address] Aug, [facility] [address] [id number] [facility] [place] [address] 10 Aug, 2014 [facility] [address] [id number] [place] [address] 10 Aug, 2014 [facility] [address] [id number] [facility] [place] [address] Aug, [facility] [address] [id number] [place] [address] Aug, [facility] [address] [id number] [place] [address] 24 Jul, 2014 [facility] [address] [id number] [place] [address] Jul, 2014 [facility] [address] [id number] [place] [address] 16 Jul, 2014 [facility] [address] [id number] [place] [address] Jul, 2014 [facility] [address] [id number] [place] [address] Jul, 2014 [facility] [address] [id number] [place] [address] Jul, 2014 [facility] [address] [id number] [place] [address] Jun, [facility] [address] [id number] [place] [address] Jun, [facility] [address] [id number] [place] [address] Jun, [facility] [address] [id number] [place] [address] Jun, [facility] [address] [id number] [place] [address] Jun, [facility] [address] [id number] [place] [address] Jun, [facility] [address] [id number] [place] [address] Jun, [facility] [address] [id number] [place] [address] Jun, [facility] [address] [id number] [place] [address] Jun, [facility] [address] [id number] [place] [address] Jun, [facility] [address] [id number] [place] [address] Jun, [facility] [address] [id number] [place] [address] Jun, [facility] [address] [id number] [place] [id number] Jun, [facility] [address] [id number] [place] [address] Jun, [facility] [address] [id number] [place] [address] Jun, [facility] [address] [id number] [place] [address] Jun, [facility] [address] [id number] [place] [address] May, [facility] [address] [id number] [place] [address] May, [facility] [address] [id number] [place] [address] May, [facility] [address] [id number] [place] [address] May, [facility] [address] [id number] [place] [address] Apr, [facility] [address] [id number] [place] [address] Apr, [facility] [address] [id number] [place] [address] Apr, [facility] [address] [id number] [place] [address] Apr, [facility] [address] [id number] [place] [address] Apr, [facility] [address] [id number] [place] [address] Apr, [facility] [address] [id number] [place] [address] Apr, [facility] [address] [id number] [place] [address] Apr, [facility] [address] [id number] [place] [address] Apr, [facility] [address] [id number] [place] [address] Apr, [facility] [address] [id number] [place] [address] Apr, [facility] [address] [id number] [place] [address] Apr, [facility] [address] [id number] [place] [address] Apr, [facility] [address] [id number] [place] [address] Apr, [facility] [address] [id number] [place] [address] Apr, [facility] [address] [id number] [place] [address] Apr, [facility] [address] [id number] [place] [address] Apr, [facility] [address] [id number] [place] [address] Apr, [facility] [address] [id number] [place] [address] Apr, [facility] [address] [id number] [place] [address] Apr, [facility] [address] [id number] [place] [address] Mar, [facility] [address] [id number] [place] [address] Mar, [facility] [address] [id number] [place] [address] Mar, [facility] [address] [id number] [place] [address] Mar, [facility] [address] [id number] [place] [address] Mar, [facility] [address] [id number] [place] [address] Mar, [facility] [address] [id number] [place] [address] Mar, [facility] [address] [id number] [place] [address] Mar, [facility] [address] [id number] [place] [address] Mar, [facility] [address] [id number] [place] [address] Mar, [facility] [address] [id number] [place] [address] Feb, [facility] [address] [id number] [facility] [place] [address] Feb, [facility] [address] [id number] [place] [address] Feb, [facility] [address] [facility] [id number] [place] [address] Feb, [facility] [address] [id number] [place] [address] Jan, [facility] [address] [facility] [id number] [place] [address] Jan, [facility] [address] [facility] [id number] [place] [address] Jan, [facility] [address] [id number] [place] [address] Jan, [facility] [address] [id number] [place] [address] Jan, [facility] [address] [id number] [place] [address] Jan, [facility] [address] [id number] [place] [address] Dec, [facility] [address] [id number] [place] [address] Dec, [facility] [address] [id number] [place] [address] Nov, [facility] [address] [id number] [place] [address] Nov, [facility] [address] [facility] [id number] [place] [address] Nov, [facility] [address] [id number] [place] [address] Nov, [facility] [address] [id number] [place] [address] Nov, [facility] [address] [id number] [place] [address] Nov, [facility] [address] [id number] [place] [address] Sep, [facility] [address] [id number] [place] [address] Sep, [facility] [address] [id number] [place] [address] Sep, [facility] [address] [id number] [place] [address] Sep, [facility] [address] [id number] [place] [address] Aug, [facility] [address] [id number] [place] [address] Aug, [facility] [address] [id number] [place] [address] Jul, [facility] [address] [facility] [id number] [place] [address] Jul, [facility] [address] [id number] [place] [address] Jun, [facility] [address] [id number] [place] [address] Jun, [facility] [address] [id number] [place] [address] Jun, [facility] [address] [id number] [place] [address] Jun, [facility] [address] [id number] [place] [address] May, [facility] [address] [id number] [place] [address] May, [facility] [address] [id number] [place] [address] May, [facility] [address] [id number] [place] [address] May, [facility] [address] [id number] [place] [address] May, [facility] [address] [id number] [place] [address] May, [facility] [address] [id number] [place] [address] Apr, [facility] [address] [id number] [place] [address] Apr, [facility] [address] [id number] [place] [address] Apr, [facility] [address] [id number] [place] [address] Apr, [facility] [address] [id number] [place] [address] Mar, [facility] [address] [id number] [place] [address] Mar, [facility] [address] [id number] [place] [address] Mar, [facility] [address] [id number] [place] [address] Mar, [facility] [address] [id number] [place] [address] Feb, [facility] [address] [id number] [place] [id number] Jan, [facility] [address] [id number] [place] [address] Jan, [facility] [address] [id number] [place] [address] Dec, [facility] [address] [id number] [place] [address] Dec, [facility] [address] [id number] [place] [address] Dec, [facility] [address] [id number] [place] [id number] Dec, [facility] [id number] [place] [address] 17 Nov, 2012 [facility] [id number] [place] [address] 14 Nov, 2012 [facility] [address] [address] Nov, [facility] [address] [address] Nov, [facility] [address] [address] Nov, [facility] [address] [address] October, [facility] [address] [address] October, [facility] [address] [address] Aug, [facility] [address] [address] Nov, IMMUNIZATIONS No Known Immunizations SOCIAL HISTORY [...] 04/2019 Hospitalization History gastric sleeve Hospitalization History [facility] ER Trouble with left shoulder blade 08/2017
--- OUTSIDE RECORDS SUMMARY | 2019-11-29 09:03 | XMS REPORT ---
Author Author Curt DIAZ [facility] Address [address] [place] [address] Care Team Providers Care Manager Review Name Role Phone JOE CHRIS Unavailable PROBLEMS Type Condition ICD9-CM Code UXH90-UX Code Onset Dates Condition S tatus SNOMED Code Problem Insomnia G47.00 Active 304317423 Problem Hyperlipemia E78.5 Active 8000518 4 Problem Morbid obesity E66.01 Active 54879 6002 Problem Benign essential hypertension I10 Active 1320793 Problem Renal insufficiency N28.9 Active 085794081 Problem Edema R60.9 Active 221938999 Problem Severe episode of recurrent major depressive disorder, without psychotic features F33.2 Active 45278148 Problem Metabolic syndrome E88.81 Active 2 09112074 Problem DANIELA (generalized anxiety disorder) F41.1 Active 96196910 Problem BMI 45.0-49.9, adult Z68.42 Active 780278138 Problem Sciatica, right side M54.31 Active 576896274209285 Problem Hammer toe of second toe of right foot M20.41 Active 022162521 Problem Mixed obsessional thoughts and acts F42.2 Active 86149445 Problem Hammer toe of right foot M20.41 Activ e 029816364 Problem Vitamin D deficiency E55.9 Active 77024975 Problem Chronic fatigue R53.82 Active 8422 9001 Problem Other chronic pain G89.29 Active 8 5667634 Problem Borderline personality disorder F60.3 Active 58565997 Problem Callous ulcer, limited to breakdown of skin L98.49 1 Active ALLERGIES No Information ENCOUNTERS Encounter Location Date Diagnosis [facility] [address] [facility] [id number] [id number] Jun, [facility] [address] [facility] [id number] [address] [address] Apr, [facility] [address] [facility] [id number] [place] [id number] Mar, [facility] [id number] [place] [id number] Mar, [facility] [address] [facility] [facility] [id number] [address] [place] [address] Mar, [facility] [address] [facility] [id number] [address] [place] [address] Mar, [facility] [address] [id number] [place] [id number] Feb, Dental examination Z01.20 an d Periodontitis K05.30 [facility] [address] [facility] [id number] [address] [place] [address] Feb, [facility] [id number] [place] [id number] Feb, Acute pain of right knee M25.561 ; Fall, initial encounter W19.XXXA ; Benign essential hypertension I10 and Edema R60.9 [facility] [address] [facility] [id number] [address] [place] [address] Feb, [facility] [address] [facility] [id number] [address] [place] [address] Feb, DANIELA (generalized anxiety dis order) F41.1 ; Severe episode of recurrent major depressive disorder, without psychotic features F33.2 ; Mixed obsessional thoughts and acts F42.2 and Borderline personality disorder F60.3 [facility] [address] [facility] [id number] [address] [place] [address] Feb, [facility] [address] [facility] [id number] [address] [place] [address] Jan, [facility] [address] [id number] [address] [place] [phone] Jan, [facility] [address] [id number] [address] [place] [address] Jan, [facility] [address] [id number] [id number] 15 Jan, 2019 Callus of heel L84 ; Fissure in skin R23 .4 and Hammer toe of second toe of right foot M20.41 [facility] [address] [id number][place] [id number] Jan, [facility] [address] [place] [id number] [address] [place] [address] Jan, [facility] [address] [place] [id number] [address] [place] [phone] Jan, [facility] [address] [place] [id number] [place] [address] Jan, Severe episode of recurrent major depressive disorder, without psychotic features F33.2 ; DANIELA (generalized anxiety disorder) F41.1 ; Mixed obsessional thoughts and acts F42.2 and Borderline personality disorder F60.3 [place] [address] [place] [id number] [address] [place] [address] Jan, [facility] [address] [place] [address] AVE [id number][place] [id number] Jan, Benign essential hypertension I10 [facility] Bender[address] [place] [address] AVE [id number][place] [id number] Dec, Callous ulcer, limited to breakdown of s kin L98.491 and Morbid obesity E66.01 [facility] [address] [place] [id number] [address] [place] [address] Dec, [facility] [address] [place] [id number] [address] [place] [address] Dec, [facility] [address] [place] [id number] [address] [place] [address] Dec, [facility] [address] [id number] [address] [place] [address] Dec, [facility] [address] [place] [id number] [address] [place] [address] Dec, Severe episode of recurrent major depressive disorder, without psychotic features F33.2 [facility] [address] [facility] [id number] [address] [place] [address] Dec, DANIELA (generalized anxiety dis order) F41.1 ; Severe episode of recurrent major depressive disorder, without psychotic features F33.2 ; Mixed obsessional thoughts and acts F42.2 and 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 [facility] [address] [id number][place] [id number] Dec, Morbid obesity E66.01 [facility] [address] [facility] [id number] [address] [place] [address] Dec, [facility] [address] [facility] [id number] [address] [place] [address] Dec, [address] [address] Nov, [facility] [address] [facility] [address] [id number][place] [id number] Nov, [facility] [address] [facility] [id number] [address] [place] [address] Nov, [facility] [address] [id number] [address] [place] [phone] Nov, [facility] [address] [id number] [address] [place] [address] Nov, DANIELA (generalized anxiety dis order) F41.1 ; Severe episode of recurrent major depressive disorder, without psychotic features F33.2 ; Mixed obsessional thoughts and acts F42.2 and 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 [facility] [address] [facility] [address] [id number][place] [id number] Nov, Morbid obesity E66.01 [facility] [address] [id number] [address] [place] [address] Nov, [facility] [address] [facility] [id number] [address] [place] [address] Nov, DANIELA (generalized anxiety dis order) F41.1 ; Mixed obsessional thoughts and acts F42.2 ; Severe episode of recurrent major depressive disorder, without psychotic features F33.2 and 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 [facility] [address] [id number][place] [id number] October, Morbid obesity E66.01 [facility] [address] [place] [address] AVE [id number], [place] [id number] October, Benign essential hypertension I10 and Mo rbid obesity E66.01 [facility] [address] [place] [address] AVE [id number], [place] [id number] October, [facility] [address] [facility] [id number] [address] [place] [address] October, Severe episode of recurrent major depressive disorder, without psychotic features F33.2 [facility] [address] [place] [address] AVE [id number], [place] [id number] October, Morbid obesity E66.01 [facility] [address] [place] [address] AVE [id number], [place] [id number] October, [facility] [address] [facility] [id number] [address] [place] [phone] October, Severe episode of recurrent major depressive disorder, without psychotic features F33.2 ; DANIELA (generalized anxiety disorder) F41.1 ; Mixed obsessional thoughts and acts F42.2 and 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 [facility] [id number][place] [id number] October, Morbid obesity E66.01 [facility] [address] [facility] [id number] [address] [place] [address] [id number] Sep, Dental examination Z01.20 [facility] [address] [place] [address] AVE [id number], [place] [id number] Sep, [facility] [address] [facility] [id number] [address] [place] [address] Sep, Sore in mouth K13.79 and Mor bid obesity E66.01 [facility] [address] [facility] [id number] [place] [address] Sep, Dental examination Z01.20 [facility] [address] [facility] [id number] [address] [place] [address] Sep, Anxiety disorder, unspecifie d F41.[address] [place] [address] [id number][place] [id number] Sep, Mouth ulcer K12.[address] [id number], [place] [id number] Sep, Morbid obesity E66.[id number] [place] [address] [id number] Sep, Allergic rhinitis, unspecified seasonali ty, unspecified trigger J30.9 and Shortness of breath R06.[address] [place] [address] [id number], [place] [id number] Sep, 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 [id number], [place] [id number] Aug, Mouth abscess K12.2 ; Mouth ulcer K12.1 ; Bloating R14.0 and Morbid obesity E66.01 [facility] [id number], [place] [id number] Aug, [facility] [address] [id number], [place] [id number] Aug, [facility] [address] [id number], [place] [id number] Jul, Major depressive disorder, recurrent, mo derate F33.1 ; Abscess of arm, left L02.414 ; BMI 45.0-49.9, adult Z68.42 and Morbid obesity E66.01 [facility] [address] [id number], [place] [id number] Jul, [facility] [address] [id number], [place] [id number] Jul, [facility] [address] [id number], [place] [id number] Jun, Pain in right knee M25.561 and Other chr onic pain G89.29 [facility] [address] [id number], [place] [id number] Jun, Benign essential hypertension I10 ; BMI 45.0-49.9, adult Z68.42 ; Morbid obesity E66.01 ; Vitamin D deficiency E55.9 ; Insomnia G47.00 ; 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 ; Edema R60.9 ; Recurrent major depressive disorder, in partial remission F33.41 ; Chronic fatigue R53.82 ; Acute pain of right knee M25.561 ; Metabolic syndrome E88.81 and Irritable mood R45.4 [facility] [address] [place] [id number] [address] [place] [address] Jun, [facility] [id number], [place] [id number] Jun, Irritable mood R45.4 [facility] [address] [facility] [id number] [address] [place] [address] May, [facility] [address] [place] [id number] [address] [place] [address] 24 May, 2018 [facility] [address] [place] [id number] [address] [place] [address] May, Recurrent major depressive d isorder, in partial remission F33.41 ; Mixed obsessional thoughts and acts F42.2 ; 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 and BMI 45.0-49.9, adult Z68.42 [facility] [address] [facility] [id number] [address] [place] [address] Apr, [facility] [address] [facility] [id number] [address] [place] [phone] 16 Apr, 2018 [facility] [address] [place] [id number] [address] [place] [address] Apr, [facility] [address] [facility] [id number] [address] [place] [address] Apr, [place] [address] [place] [id number] [address] [place] [address] Mar, Mixed obsessional thoughts a nd acts F42.2 ; Recurrent major depressive disorder, in partial remission F33.41 ; DANIELA (generalized anxiety disorder) F41.1 and BMI 45.0-49.9, adult Z68.[address] [place] [address] [id number], [place] [id number] Mar, [facility] [place] [id number] [place] [address] [id number] Mar, BMI 45.0-49.9, adult Z68.42 ; Instabilit y of right knee joint M25.361 and Rash R21 [place] [address] [place] [id number] [address] [place] [address] Jan, Recurrent major depressive d isorder, in partial remission F33.41 ; Mixed obsessional thoughts and acts F42.2 and BMI 45.0-49.9, adult Z68.[address] [place] [id number] [place] [address] [id number] Jan, [facility] [id number], [place] [id number] Jan, Benign essential hypertension I10 ; BMI 45.0-49.9, adult Z68.42 ; Metabolic syndrome E88.81 and Allergic rhinitis, unspecified seasonality, unspecified trigger J30.9 [place] [address] [facility] [id number] [address] [place] [address] Dec, DANIELA (generalized anxiety dis order) F41.1 and Depressive disorder, not elsewhere classified F32.9 [facility] [address] [id number], [place] [id number] Dec, Recurrent major depressive disorder, in partial remission F33.41 [facility] [address] [id number], [place] [id number] Dec, [facility] [address] [id number], [place] [id number] Nov, [facility] [address] [id number], [place] [id number] Nov, Recurrent major depressive disorder, in partial remission F33.41 [facility] [address] [facility] [id number] [address] [place] [address] Nov, Recurrent major depressive d isorder, in partial remission F33.41 ; Mixed obsessional thoughts and acts F42.2 ; DANIELA (generalized anxiety disorder) F41.1 and BMI 45.0-49.9, adult Z68.42 [facility] [address] [id number], [place] [id number] Nov, [facility] [address] [id number], [place] [id number] Nov, Other conjunctivitis of both eyes H10.89 and Sciatica, right side M54.31 [facility] [address] [id number], [place] [id number] Nov, [facility] [address] [id number], [place] [id number] Nov, [facility] [address] [id number], [place] [id number] October, [facility] [address] [id number], [place] [id number] October, [facility] [address] [id number] [address] [place] [address] October, BMI 45.0-49.9, adult Z68.42 ; Mixed obsessional thoughts and acts F42.2 ; Recurrent major depressive disorder, in partial remission F33.41 and DANIELA (generalized anxiety disorder) F41.1 [facility] [address] [id number], [place] [id number] October, Benign essential hypertension I10 ; Morb id obesity E66.01 and BMI 45.0-49.9, adult Z68.42 [facility] Jama [facility] [address] [id number], [place] [id number] Sep, [facility] [address] [id number], [place] [id number] Sep, [facility] [address] [place] [address] AVE [id number], [place] [id number] Sep, [facility] [id number], [place] [id number] Sep, Hospital discharge follow-up Z09 ; Aller gic rhinitis, unspecified seasonality, unspecified trigger J30.9 and Shortness of breath R06.02 [facility] [address] [place] [address] AV [id number], [place] [id number] Sep, Recurrent major depressive disorder, in partial remission F33.41 [facility] [id number], [place] [id number] Aug, Irritable mood R45.4 [place] [address] [place] [id number] [address] [place] [address] Aug, [facility] [id number] [place] [address] [id number] Jul, Benign essential hypertension I10 ; Robert a R60.9 and Impacted cerumen of left ear H61.22 [place] [id number] [place] [address] Jul, Major depression F32.9 ; Rec urrent major depressive disorder, in partial remission F33.41 and Anxiety F41.9 [place] [address] [place] [id number] [address] [place] [address] Jun, Major depression F32.9 ; Rec urrent major depressive disorder, in partial remission F33.41 and Anxiety F41.9 [facility] [id number], [place] [id number] Jun, Major depression F32.9 ; Morbid obesity E66.01 ; Irritable mood R45.4 ; Hand weakness R29.898 and Vitamin D deficiency E55.9 [facility] [address] [id number], [place] [id number] Jun, [facility] [id number] [place] [address] [id number] May, Major depression F32.9 [place] [address] [facility] [id number] [address] [place] [address] May, Major depression F32.9 [facility] [id number] [place] [address] [id number] May, BMI 50.0-59.9, adult Z68.43 ; Major depr ession F32.9 ; Anxiety F41.9 ; Hypertrophic toenail L60.2 and Pain of left great toe M79.675 [facility] [id number] [place] [address] [id number] May, Recurrent major depressive disorder, in partial remission F33.41 [place] [address] [facility] [id number] [address] [place] [address] Apr, [facility] [address] [id number], [place] [id number] Apr, [place] [address] [facility] [id number] [address] [place] [address] Apr, Major depression F32.9 [facility] [address] [id number], [place] [id number] Apr, Severe episode of recurrent major depres sive disorder, without psychotic features F33.2 ; Anxiety F41.9 and Insomnia G47.00 [facility] [address] [id number], [place] [id number] Apr, [place] [address] [facility] [id number] [address] [place] [phone] Apr, [facility] [address] [id number], [place] [id number] Apr, [facility] [address] [id number], [place] [id number] Mar, [facility] [address] [id number], [place] [id number] Mar, Allergic conjunctivitis of both eyes H10 .13 [place] [address] [facility] [id number] [address] [place] [address] Mar, Major depression F32.9 [facility] [address] [facility] [address] [id number], [place] [id number] Mar, Metabolic syndrome E88.81 ; History of g astric bypass Z98.890 ; Benign essential hypertension I10 ; Allergic conjunctivitis of both eyes H10.13 and Morbid obesity E66.01 [place] [address] [place] [address] Mar, Major depression F32.9 [place] [address] [facility] [address] [id number], [place] [id number] Feb, [place] [address] [place] [id number] [address] [place] [address] Feb, Major depression F32.9 [place] [address] [facility] [address] [id number], [place] [id number] Feb, Subacute maxillary sinusitis J01.00 and Bronchitis J40 [place] [address] [facility] [id number] [address] [place] [address] Feb, Major depressive disorder, r ecurrent, moderate F33.1 [facility] [place] [address] [facility] [address] [id number], [place] [id number] Jan, [facility] [address] [address] [id number], [place] [id number] Jan, Acute non-recurrent maxillary sinusitis J01.00 and Skin tag L91.8 [facility] [address] [id number][place] [id number] Jan, Cough R05 and Sinus congestion R09.81 [facility] [address] [id number][place] [id number] Jan, [facility] [address] [id number][place] [id number] Jan, Benign essential hypertension I10 ; Hist ory of gastric bypass Z98.890 and Nausea and vomiting in adult R11.2 [place] [address] [address] [place] [id number] [place] [id number] Jan, 2017 Major depressive disorder, r ecurrent, moderate F33.1 [place] [address] [id number] 12 Dec, 2016 Insomnia G47.00 ; Recurrent major depressive disorder, in partial remission F33.41 and Morbid obesity E66.01 [facility] [address] [id number][place] [id number] Dec, [facility] [id number] [place] [id number] Dec, Chronic bacterial conjunctivitis of left eye H10.402 [facility] [address] [id number] [place] [id number] Nov, [facility] [id number] [place] [id number] Nov, Dental examination Z01.[address] [id number] [place] [id number] Nov, Benign essential hypertension I10 ; Hist ory of gastric bypass Z98.890 and Nausea and vomiting in adult R11.2 [place] [address] [address] [place] [id number] [address] [place] [id number] 13 Nov, 2016 Major depressive disorder, r ecurrent, moderate F33.1 ; Generalized anxiety disorder F41.1 and Insomnia due to other mental disorder F51.05 [place] [address] [address] [place] [id number] [address] [place] [id number] Nov, Recurrent major depressive d isorder, in partial remission F33.41 ; Insomnia G47.00 and Morbid obesity E66.01 [facility] [facility] [address] [id number] Kiesha ESCOBEDO S [id number] October, Abscess of left arm L02.414 [facility] [address] [facility] [id number] [address] [place] [address] October, Morbid obesity E66.01 ; Lida r depression F32.9 and Recurrent major depressive disorder, in partial remission F33.[address] [id number][place] [id number] Sep, Benign essential hypertension I10 ; Morb id obesity E66.01 ; S/P gastric bypass Z98.84 ; Abscess L02.91 and Chronic bacterial conjunctivitis of left eye H10.[id number] [place] [address] [id number] Sep, Dental examination Z01.20 [place] [address] [place] [id number] [address] [place] [address] Sep, Morbid obesity E66.01 ; Lida r depression F32.9 and Recurrent major depressive disorder, in partial remission F33.41 [place] [id number] [place] [address] Jul, [place] [address] [place] [address] Jul, Major depressive disorder, r ecurrent, moderate F33.1 [place] [address] [facility] [id number] [address] [place] [address] Jul, Major depressive disorder, r ecurrent, moderate F33.1 and Generalized anxiety disorder F41.[address] [place] [address] [id number][place] [id number] Jul, Cough R05 [place] [address] [place] [id number] [address] [place] [address] Jul, Morbid obesity E66.01 ; Lida r depression F32.9 and Recurrent major depressive disorder, in partial remission F33.41 [facility] [address] [id number][place] [id number] Jul, [facility] [address] [id number][place] [id number] Jul, [place] [address] [id number] [place] [address] [id number] Jul, Gastroenteritis K52.9 and Cough R05 [place] [address] [facility] [address] [id number] [place] [address] [id number] Jun, Acute bacterial conjunctivitis of left e ye H10.32 [facility] [address] [id number] [address] [place] [address] Jun, [place] [address] [facility] [id number] [address] [place] [address] Jun, Recurrent major depressive d isorder, in partial remission F33.41 [place] [address] [facility] [id number] [address] [place] [address] May, Major depression F32.9 and M orbid obesity E66.01 [place] [address] [facility] [id number] [address] [place] [address] May, [place] [address] [facility] [address] [id number] [place] [address] [id number] May, Thrush B37.0 [place] [address] [id number] [address] [place] [address] Apr, Major depressive disorder, r ecurrent, moderate F33.1 [place] [address] [facility] [id number] [address] [place] [address] Apr, Insomnia G47.00 ; Major depr ession F32.9 and Recurrent major depressive disorder, in partial remission F33.41 [facility] [address] [place] [id number] [address] [place] [address] Apr, [facility] [address] [id number] [address] [place] [address] Apr, Major depression F32.9 and R ecurrent major depressive disorder, in partial remission F33.41 [facility] [address] [id number], [place] [id number] Mar, Benign essential hypertension I10 ; Morb id obesity E66.01 ; Impacted cerumen of both ears H61.23 ; Laceration of finger of right hand, initial encounter S61.219A and Encounter for immunization Z23 [facility] [address] [id number] [address] [place] [address] 17 Mar, 2016 [facility] [address] [id number] [address] [place] [address] Mar, [facility] [address] [facility] [id number] [address] [place] [address] Mar, [place] [address] [id number][place] [id number] Feb, Nausea R11.0 ; Blood in the stool K92.1 and Benign essential hypertension I10 [facility] [address] [id number] [address] [place] [address] Feb, Major depression F32.9 and R ecurrent major depressive disorder, in partial remission F33.41 [facility] [address] [id number], [place] [id number] Feb, [facility] [address] [id number], [place] [id number] Feb, Recurrent major depressive disorder, in partial remission F33.41 [facility] [address] [id number], [place] [id number] Jan, [facility] [address] [id number][place] [id number] Jan, Benign essential hypertension I10 ; Robert a R60.9 and Hyperlipidemia, unspecified hyperlipidemia type E78.5 [facility] [address] [id number], [place] [id number] Jan, Recurrent major depressive disorder, in partial remission F33.41 [facility] [address] [id number] Kiesha ESCOBEDO S [id number] Jan, [facility] [address] [id number], [place] [id number] Jan, [facility] [address] [id number], [place] [id number] Jan, [facility] [address] [id number] [address] [place] [address] Jan, [facility] [address] [id number] [address] [place] [address] Dec, [facility] [address] [id number] [address] [place] [address] Nov, [facility] [address] [id number] [address] [place] [address] Nov, Major depression F32.9 [facility] [address] [id number] [address] [place] [address] Nov, [facility] [address] [id number] [address] [place] [address] Nov, [facility] [address] [id number] [address] [place] [address] Nov, Major depressive disorder, r ecurrent episode, mild F33.0 and Anxiety F41.9 [facility] [address] [id number], [place] [id number] Nov, [facility] [address] [id number], [place] [id number] October, Left elbow pain M25.522 and Other season al allergic rhinitis J30.2 [facility] [address] [id number], [place] [id number] October, [place] [address] [facility] [id number] [address] [place] [address] October, Major depressive disorder, r ecurrent, moderate F33.1 [place] [address] [id number] [address] [place] [address] October, Major depression F32.9 [place] [address] [id number] [address] [place] [address] Sep, Yermo or callus L84 and Onych omycosis B35.1 [place] [address] [id number] [address] [place] [address] Sep, Major depressive disorder, r ecurrent, moderate F33.1 [place] [address] [id number] [address] [place] [address] Sep, Major depression F32.9 [place] [address] [place] [id number] [address] [place] [address] Sep, Moderate episode of recurren t major depressive disorder F33.1 [facility] [address] [id number], [place] [id number] Sep, Muscle strain T14.8 [place] [address] [id number] [address] [place] [address] Aug, Major depression F32.9 [place] [address] [place] [id number] [address] [place] [address] Aug, Major depression F32.9 [place] [address] [facility] [id number] [address] [place] [address] Jul, Morbid obesity E66.01 and Ma cora depression F32.9 [place] [address] [id number] [address] [place] [address] Jul, Depression, major, recurrent , moderate F33.1 [facility] [address] [id number], [place] [id number] Jul, [place] [address] [address] Jul, [place] [address] [address] 16 Jul, 2015 Major depression F32.9 and M orbid obesity E66.[address] [id number], [place] [id number] Jul, Type II diabetes mellitus E11.9 ; Callus of foot L84 ; Benign essential hypertension I10 and Renal insufficiency N28.9 [place] [address] [address] 09 Jul, 2015 Depression, major, recurrent , moderate F33.1 [place] [address] [address] 05 Jul, 2015 Major depression F32.9 [place] [address] [address] Jul, [place] [address] [address] Jun, Major depression F32.9 [place] [address] [address] Jun, Major depressive disorder, r ecurrent, moderate F33.1 [place] [address] [address] Jun, [place] [address] [address] Jun, Major depressive disorder, r ecurrent, moderate F33.1 and Major depression F32.9 [facility] [address] [place] [address] AVE [id number], [place] [id number] Jun, Type II diabetes mellitus E11.9 [place] [address] [place] [id number] [address] [place] [address] Jun, Depression, major, recurrent , moderate F33.1 [place] [address] [id number] [address] [place] [address] May, Major depressive disorder, r ecurrent, moderate F33.1 [place] [address] [id number] [address] [place] [address] May, [place] [id number] [place] [address] [id number] May, Edema R60.9 [place] [address] [id number] [address] [place] [address] May, Insomnia G47.00 and Major de pression F32.[id number] [place] [address] [id number] 15 May, 2015 Morbid obesity E66.01 ; Edema R60.9 ; Sh ortness of breath R06.02 ; Benign essential hypertension I10 and Renal insufficiency N28.[id number] [place] [address] [id number] May, Hyperlipemia 272.4 and Renal insufficien cy N28.9 [place] [address] [id number] [address] [place] [address] Apr, Major depression F32.9 [place] [address] [id number] [address] [place] [address] Apr, [place] [address] [id number] [address] [place] [address] Apr, Major depressive disorder, r ecurrent, moderate F33.[address] [id number] [place] [address] [id number] Apr, Type II diabetes mellitus E11.9 ; Benign essential hypertension I10 ; Edema R60.9 and Renal insufficiency N28.9 [place] [address] [id number] [address] [place] [address] Mar, Major depressive disorder, r ecurrent, moderate F33.1 [place] [address] [id number] [address] [place] [address] Mar, [place] [address] [facility] [id number] [address] [place] [address] Mar, Major depression F32.9 [place] [address] [facility] [address] [id number][place] [id number] Mar, Morbid obesity E66.01 ; Benign essential hypertension I10 and Type II diabetes mellitus E11.9 [place] [address] [facility] [id number] [address] [place] [address] Feb, Major depressive disorder, r ecurrent, moderate F33.1 [place] [id number] [address] [place] [address] Feb, Major depressive disorder, r ecurrent episode, in partial or unspecified remission 296.35 ; Anxiety state, unspecified 300.00 and Morbid obesity 278.01 [place] [address] [place] [id number] [address] [place] [address] Feb, [address] [id number] [place] [address] [id number] Feb, Vomiting 787.03 and Viral syndrome 079.[address] [id number] [address] [place] [address] Feb, Major depression, recurrent 296.30 ; Generalized anxiety disorder 300.02 and No condition on [place] II V71.[address] [id number], [place] [id number] Feb, Skin tag 701.9 [place] [address] [facility] [id number] [address] [place] [address] Feb, [address] [id number] [address] [place] [address] Jan, Depression, major, recurrent , moderate 296.[address] [id number], [place] [id number] Jan, Nausea and vomiting 787.01 ; Rib pain on right side 786.50 and Fall on or from sidewalk curb E880.1 [facility] [address] [id number] [address] [place] [address] Jan, [facility] [address] [place] [id number] [address] [place] [address] Jan, Major depressive disorder, r ecurrent episode, in partial or unspecified remission 296.35 and Anxiety state, unspecified 300.[address] [id number], [place] [id number] Jan, [facility] [address] [id number] [address] [place] [address] Jan, Depression, major, recurrent , moderate 296.32 [place] [address] [place] [id number] [address] [place] [address] Jan, Major depression, recurrent 296.30 ; No condition on [place] II V71.09 and No condition on axis III V71.[address] [id number], [place] [id number] Jan, Drug-induced nausea and vomiting 787.01 [place] [id number] [address] [place] [address] Jan, Depression, major, recurrent , moderate 296.[address] [id number] [address] [place] [address] Dec, Depression, major, recurrent , moderate 296.32 [address] [id number], [place] [id number] Dec, Morbid obesity 278.01 ; Metabolic syndro me 277.7 ; Hyperlipemia 272.4 ; Benign essential hypertension 401.1 ; Dietary counseling V65.3 ; Exercise counseling V65.41 and Inflamed skin tag 701.[address] [id number] [address] [place] [address] Dec, Depression, major, recurrent , moderate 296.32 [place] [address] [place] [address] Dec, [facility] [address] [address] Dec, Major depression, recurrent 296.30 ; Anxiety, generalized 300.02 and No condition on [place] II V71.09 [facility] [address] [address] Dec, Depression, major, recurrent , moderate 296.32 [place] [address] [address] Dec, Major depressive disorder, r ecurrent episode, moderate 296.32 [place] [address] [address] Dec, Depression, major, recurrent , moderate 296.32 [place] [address] [address] Dec, Depression, major, recurrent , moderate 296.32 [place] [address] [address] Dec, Depression, major, recurrent , moderate 296.32 [place] [address] [address] Dec, Depression, major, recurrent , moderate 296.32 [place] [address] [address] Nov, Depression, major, recurrent , moderate 296.32 [place] [address] [address] Nov, Major depression 296.20 ; So cial phobia 300.23 and No condition on [place] II V71.09 [place] [address] [address] Nov, Depression, major, recurrent , moderate 296.32 [place] [address] [address] Nov, Major depressive disorder, r ecurrent episode, moderate 296.32 and Generalized anxiety disorder 300.02 [facility] [address] [id number] [address] [place] [address] Nov, Depression, major, recurrent , moderate 296.32 [facility] [address] [id number] [address] [place] [address] Nov, Depression, major, recurrent , moderate 296.32 [facility] [address] [id number] [address] [place] [address] October, Generalized anxiety disorder 300.02 ; No condition on [place] II V71.09 and Major depressive disorder, recurrent 296.30 [facility] [address] [id number] [address] [place] [address] Sep, [facility] [address] [facility] [id number] [address] [place] [address] Sep, [facility] [address] [id number] [address] [place] [address] Aug, [facility] [address] [id number] [address] [place] [address] Aug, [facility] [address] [facility] [id number] [address] [place] [address] Aug, [facility] [address] [id number] [address] [place] [address] Aug, [facility] [address] [id number] [address] [place] [address] Aug, [facility] [address] [id number] [address] [place] [address] Aug, [facility] [address] [id number] [address] [place] [address] Aug, [facility] [address] [id number] [address] [place] [address] Aug, [facility] [address] [id number] [address] [place] [address] [place] [id number] 13 Aug, 2014 [facility] [address] [id number] [address] [place] [address], [place] [id number] 13 Aug, 2014 [facility] [place] [facility] [address] [id number] [address] [place] [address], [place] [id number] 13 Aug, 2014 [facility] [place] [facility] [address] [id number] [address] [place] [address], [place] [id number] 13 Aug, 2014 [facility] [place] [facility] [address] [id number] [address] [place] [address], [place] [id number] 12 Aug, 2014 [facility] [place] [facility] [address] [id number] [address] [place] [address], [place] [id number] Aug, [facility] [place] [facility] [address] [id number] [address] [place] [address], [place] [id number] 10 Aug, 2014 [facility] [address] [id number] [address] [place] [address], [place] [id number] 10 Aug, 2014 [facility] [place] [facility] [address] [id number] [address] [place] [address], [place] [id number] Aug, [facility] [place] [facility] [address] [id number] [address] [place] [address], [place] [id number] Aug, [facility] [place] [facility] [address] [id number] [address] [place] [address], [place] [id number] Jul, 2014 [facility] [place] [facility] [address] [id number] [address] [place] [address], [place] [id number] Jul, 2014 [facility] [place] [facility] [address] [id number] [address] [place] [address], [place] [id number] 16 Jul, 2014 [facility] [place] [facility] [address] [id number] [address] [place] [address], [place] [id number] Jul, 2014 [facility] [place] [facility] [address] [id number] [address] [place] [address], [place] [id number] Jul, 2014 [facility] [place] [facility] [address] [id number] [address] [place] [address], [place] [id number] Jul, [facility] [address] [id number] [address] [place] [address], [place] [id number] Jun, [facility] [address] [id number] [address] [place] [address], [place] [id number] Jun, [facility] [address] [id number] [address] [place] [address], [place] [id number] Jun, [facility] [address] [id number] [address] [place] [address], [place] [id number] Jun, [facility] [address] [id number] [address] [place] [address], [place] [id number] Jun, [facility] [address] [id number] [address] [place] [address], [place] [id number] Jun, [facility] [address] [id number] [address] [place] [address], [place] [id number] Jun, [facility] [address] [id number] [address] [place] [address], [place] [id number] Jun, [facility] [address] [id number] [address] [place] [address], [place] [id number] Jun, [facility] [address] [id number] [address] [place] [id number] Jun, [facility] [address] [id number] [address] [place] [id number] Jun, [facility] [address] [id number] [address] [place] [id number] Jun, [facility] [address] [id number] [id number] Jun, [facility] [address] [id number] [address] [place] [address], [place] [id number] Jun, [facility] [address] [id number] [address] [place] [address], [place] [id number] Jun, [facility] [address] [id number] [address] [place] [id number] Jun, [facility] [address] [id number] [address] [place] [address], [place] [id number] May, [facility] [address] [id number] [address] [place] [address], [place] [id number] May, [facility] [address] [id number] [address] [place] [address], [place] [id number] May, [facility] [address] [id number] [address] [place] [address], [place] [id number] May, [facility] [address] [id number] [address] [place] [address], [place] [id number] Apr, [facility] [address] [id number] [address] [place] [address], [place] [id number] Apr, [facility] [address] [id number] [address] [place] [address], [place] [id number] Apr, [facility] [address] [id number] [address] [place] [address], [place] [id number] Apr, [facility] [address] [id number] [address] [place] [id number] Apr, [facility] [address] [id number] [address] [place] [address], [place] [id number] Apr, [facility] [address] [id number] [address] [place] [id number] Apr, [facility] [address] [id number] [address] [place] [id number] Apr, [facility] [address] [id number] [address] [place] [address], [place] [id number] Apr, [facility] [address] [id number] [address] [place] [address], [place] [id number] Apr, [facility] [address] [id number] [address] [place] [id number] Apr, [facility] [address] [id number] [address] [place] [address], [place] [id number] Apr, [facility] [address] [id number] [address] [place] [address], [place] [id number] Apr, [facility] [address] [id number] [address] [place] [address], [place] [id number] Apr, [facility] [address] [id number] [address] [place] [address], [place] [id number] Apr, [facility] [address] [id number] [address] [place] [address], [place] [id number] Apr, [facility] [address] [id number] [address] [place] [address], [place] [id number] Apr, [facility] [address] [id number] [address] [place] [address], [place] [id number] Apr, [facility] [address] [id number] [address] [place] [address], [place] [id number] Apr, [facility] [address] [id number] [address] [place] [address], [place] [id number] Apr, [facility] [address] [id number] [address] [place] [address], [place] [id number] Mar, [facility] [address] [id number] [address] [place] [address], [place] [id number] Mar, [facility] [address] [id number] [address] [place] [address], [place] [id number] Mar, [facility] [address] [id number] [address] [place] [address], [place] [id number] Mar, [facility] [address] [id number] [address] [place] [address], [place] [id number] Mar, [facility] [address] [id number] [address] [place] [address], [place] [id number] Mar, [facility] [address] [id number] [address] [place] [address], [place] [id number] Mar, [facility] [address] [id number] [address] [place] [address], [place] [id number] Mar, [facility] [address] [id number] [address] [place] [address], [place] [id number] Mar, [facility] [address] [id number] [address] [place] [address], [place] [id number] Mar, [facility] [address] [id number] [address] [place] [address], [place] [id number] Feb, [facility] [address] [id number] [address] [place] [address], [place] [id number] Feb, [facility] [address] [id number] [address] [place] [address], [place] [id number] Feb, [facility] [address] [id number] [address] [place] [address], [place] [id number] Feb, [facility] [address] [id number] [address] [place] [address], [place] [id number] Jan, [facility] [address] [id number] [address] [place] [address], [place] [id number] Jan, [facility] [address] [id number] [address] [place] [address], [place] [id number] Jan, [facility] [address] [id number] [address] [place] [address], [place] [id number] Jan, [facility] [address] [id number] [address] [place] [address], [place] [id number] Jan, [facility] [address] [id number] [address] [place] [address], [place] [id number] Jan, [facility] [address] [id number] [address] [place] [address], [place] [id number] Dec, [facility] [address] [id number] [address] [place] [address], [place] [id number] Dec, [facility] [address] [id number] [address] [place] [address], [place] [id number] Nov, [facility] [address] [id number] [address] [place] [address], [place] [id number] Nov, [facility] [address] [id number] [address] [place] [address], [place] [id number] Nov, [facility] [address] [id number] [address] [place] [address], [place] [id number] Nov, [facility] [address] [id number] [address] [place] [address], [place] [id number] Nov, [facility] [address] [id number] [address] [place] [address], [place] [id number] Nov, [facility] [address] [id number] [address] [place] [address], [place] [id number] Sep, [facility] [address] [id number] [address] [place] [address], [place] [id number] Sep, [facility] [address] [id number] [address] [place] [address], [place] [id number] Sep, [facility] [address] [id number] [address] [place] [address], [place] [id number] Sep, [facility] [address] [id number] [address] [place] [address], [place] [id number] Aug, [facility] [address] [id number] [address] [place] [address], [place] [id number] Aug, [facility] [address] [id number] [address] [place] [address], [place] [id number] Jul, [facility] [address] [id number] [address] [place] [address], [place] [id number] Jul, [facility] [address] [id number] [address] [place] [address], [place] [id number] Jun, [facility] [address] [id number] [address] [place] [address], [place] [id number] Jun, [facility] [address] [id number] [address] [place] [address], [place] [id number] Jun, [facility] [address] [id number] [address] [place] [address], [place] [id number] Jun, [facility] [address] [id number] [address] [place] [address], [place] [id number] May, [facility] [address] [id number] [address] [place] [address], [place] [id number] May, [facility] [address] [id number] [address] [place] [address], [place] [id number] May, [facility] [address] [id number] [address] [place] [address], [place] [id number] May, [facility] [address] [id number] [address] [place] [address], [place] [id number] May, [facility] [address] [id number] [address] [place] [address], [place] [id number] May, [facility] [address] [id number] [address] [place] [address], [place] [id number] Apr, [facility] [address] [id number] [address] [place] [address], [place] [id number] Apr, [facility] [address] [id number] [address] [place] [address], [place] [id number] Apr, [facility] [address] [id number] [address] [place] [address], [place] [id number] Apr, [facility] [address] [id number] [address] [place] [address], [place] [id number] Mar, [facility] [address] [id number] [address] [place] [address], [place] [id number] Mar, [facility] [address] [id number] [address] [place] [address], [place] [id number] 18 Mar, 2013 [facility] [address] [id number] [address] [place] [address], [place] [id number] Mar, [facility] [address] [id number] [address] [place] [address], [place] [id number] Feb, [facility] [place] [address] [id number] [place] [id number] Jan, [facility] [address] [id number] [address] [place] [address], [place] [id number] Jan, [facility] [address] [id number] [address] [place] [address], [place] [id number] Dec, [facility] [address] [id number] [address] [place] [address], [place] [id number] Dec, [facility] [address] [id number] [address] [place] [address], [place] [id number] Dec, [facility] [place] [address] [id number] [place] [id number] Dec, [facility] [address] [id number] [address] [place] [address], [place] [id number] Nov, [facility] [address] [id number] [address] [place] [address], [place] [id number] Nov, [facility] [address] [id number] [address] [place] [address], [place] [id number] Nov, [facility] [address] [id number] [address] [place] [address], [place] [id number] Nov, [facility] [address] [id number] [address] [place] [address], [place] [id number] Nov, [facility] [address] [id number] [address] [place] [address], [place] [id number] October, [facility] [address] [id number] [address] [place] [address], [place] [id number] October, [facility] [address] [id number] [address] [place] [address], [place] [id number] Aug, [facility] [address] [id number] [address] [place] [address], [place] [id number] Nov, IMMUNIZATIONS No Known Immunizations SOCIAL HISTORY [...] stretching- 2014 Surgical History gastric sleeve 03/2016 Hospitalization History gastric sleeve Hospitalization History [facility] ER Trouble with left shoulder blade 08/2017
--- OUTSIDE RECORDS SUMMARY | 2019-11-29 09:03 | XMS REPORT ---
Author Author Curt DIAZ Organization [facility] Address [address] [place] [address] Care Team Providers Care Dial Refinisher Name Role Phone JOE CHRIS Unavailable PROBLEMS Type Condition ICD9-CM Code [id number] Code Onset Dates Condition S tatus SNOMED Code Problem Insomnia G47.00 Active 011146050 Problem Hyperlipemia E78.5 Active 2973130 4 Problem Morbid obesity E66.01 Active 08731 6002 Problem Benign essential hypertension I10 Active 6934442 Problem Renal insufficiency N28.9 Active 070679678 Problem Edema R60.9 Active 101750760 Problem Severe episode of recurrent major depressive disorder, without psychotic features F33.2 Active 78956359 Problem Metabolic syndrome E88.81 Active 2 04401785 Problem DANIELA (generalized anxiety disorder) F41.1 Active 27947028 Problem BMI 45.0-49.9, adult Z68.42 Active 927810379 Problem Sciatica, right side M54.31 Active [id number] Problem Hammer toe of second toe of right foot M20.41 Active 704131382 Problem Mixed obsessional thoughts and acts F42.2 Active 78948652 Problem Hammer toe of right foot M20.41 Activ e 138480791 Problem Vitamin D deficiency E55.9 Active 22883559 Problem Chronic fatigue R53.82 Active 8422 9001 Problem Other chronic pain G89.29 Active 8 3664251 Problem Borderline personality disorder F60.3 Active 32265603 Problem Callous ulcer, limited to breakdown of skin L98.49 1 Active ALLERGIES No Information ENCOUNTERS Encounter Location Date Diagnosis [facility] [address] [facility] [id number] [id number] Jun, [facility] [address] [facility] [id number] [place] [address] Apr, [facility] [address] [facility] [id number] [address] [place] [id number] Mar, [facility] [address] [facility] [id number] [address] [place] [phone] Mar, [facility] [address] [facility] [id number] [address] [place] [phone] Mar, [facility] [address] [facility] [id number] [address] [place] [address] [id number] Feb, Dental examination Z01.20 an d Periodontitis K05.30 [facility] [address] [facility] [id number] [address] [place] [phone] Feb, [facility] [address] [id number][place] [id number] Feb, Acute pain of right knee M25.561 ; Fall, initial encounter W19.XXXA ; Benign essential hypertension I10 and Edema R60.9 [facility] [address] [place] [id number] [address] [place] [phone] Feb, [facility] [address] [place] [id number] [address] [place] [phone] Feb, DANIELA (generalized anxiety dis order) F41.1 ; Severe episode of recurrent major depressive disorder, without psychotic features F33.2 ; Mixed obsessional thoughts and acts F42.2 and Borderline personality disorder F60.3 [facility] [address] [place] [id number] [address] [place] [phone] Feb, [facility] [address] [facility] [id number] [address] [place] [phone] Jan, [facility] [address] [facility] [id number] [address] [place] [phone] Jan, [facility] [address] [place] [id number] [address] [place] [phone] Jan, [facility] [address] [id number] [id number] Jan, Callus of heel L84 ; Fissure in skin R23 .4 and Hammer toe of second toe of right foot M20.41 [facility] [address] [id number][place] [id number] Jan, [facility] [address] [facility] [id number] [address] [place] [phone] Jan, [facility] [address] [facility] [id number] [address] [place] [phone] Jan, [facility] [address] [facility] [id number] [address] [place] [phone] Jan, Severe episode of recurrent major depressive disorder, without psychotic features F33.2 ; DANIELA (generalized anxiety disorder) F41.1 ; Mixed obsessional thoughts and acts F42.2 and Borderline personality disorder F60.3 [place] [address] [facility] [id number] [address] [place] [phone] Jan, [address] [id number] [place] [address] [phone] Jan, Benign essential hypertension I10 [address] [id number] [place] [address] [phone] Dec, Callous ulcer, limited to breakdown of s kin L98.491 and Morbid obesity E66.01 [facility] [address] [facility] [id number] [address] [place] [phone] Dec, [facility] [address] [facility] [id number] [address] [place] [phone] Dec, [facility] [address] [facility] [id number] [address] [place] [phone] Dec, [facility] [address] [place] [id number] [address] [place] [phone] Dec, [facility] [address] [facility] [id number] [address] [place] [phone] Dec, Severe episode of recurrent major depressive disorder, without psychotic features F33.2 [facility] [address] [place] [id number] [address] [place] [phone] Dec, DANIELA (generalized anxiety dis order) F41.1 ; Severe episode of recurrent major depressive disorder, without psychotic features F33.2 ; Mixed obsessional thoughts and acts F42.2 and 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 [facility] [address] [facility] [address] [id number], [place] [id number] Dec, Morbid obesity E66.01 [facility] [address] [facility] [id number] [address] [place] [phone] Dec, [facility] [address] [facility] [id number] [address] [place] [phone] Dec, [address] [phone] Nov, [facility] [address] [facility] [address] [id number], [place] [id number] Nov, [facility] [address] [facility] [id number] [address] [place] [phone] Nov, [facility] [address] [facility] [id number] [address] [place] [phone] Nov, [facility] [address] [facility] [id number] [address] [place] [phone] Nov, DANIELA (generalized anxiety dis order) F41.1 ; Severe episode of recurrent major depressive disorder, without psychotic features F33.2 ; Mixed obsessional thoughts and acts F42.2 and 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 [facility] [address] [facility] [address] [id number][place] [id number] Nov, Morbid obesity E66.01 [facility] [address] [facility] [id number] [address] [place] [phone] Nov, [facility] [address] [facility] [id number] [address] [place] [phone] Nov, DANIELA (generalized anxiety dis order) F41.1 ; Mixed obsessional thoughts and acts F42.2 ; Severe episode of recurrent major depressive disorder, without psychotic features F33.2 and 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 [facility] Jama [facility] [id number][place] [id number] October, Morbid obesity E66.01 [facility] Jama [facility] [id number], [place] [id number] October, Benign essential hypertension I10 and Mo rbid obesity E66.01 [facility] [id number] [place] [address] [id number] October, [facility] [address] [place] [id number] [address] [place] [phone] October, Severe episode of recurrent major depressive disorder, without psychotic features F33.2 [facility] Jama [facility] [id number], [place] [id number] October, Morbid obesity E66.01 [facility] [address]ender[address] [place] [address] [id number] [place] [address] [phone] October, [facility] [address] [place] [id number] [address] [place] [phone] October, Severe episode of recurrent major depressive disorder, without psychotic features F33.2 ; DANIELA (generalized anxiety disorder) F41.1 ; Mixed obsessional thoughts and acts F42.2 and 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 [facility] [address] [place] [address] A[id number] [place] [address] [id number] October, Morbid obesity E66.01 [facility] [address] [facility] [id number] [address] [place] [address] [id number] Sep, Dental examination Z01.20 [facility] Yulia[address] [place] [address] A[id number] [place] [address] [id number] Sep, [facility] [address] [place] [id number] [address] [place] [phone] Sep, Sore in mouth K13.79 and Mor bid obesity E66.01 [facility] [address] [place] [id number] [address] [place] [phone] Sep, Dental examination Z01.20 [facility] [address] [facility] [id number] [address] [address] Sep, Anxiety disorder, unspecifie d F41.9 [facility] [address] [id number][place] [phone] Sep, Mouth ulcer K12.[address] [id number], [place] [id number] Sep, Morbid obesity E66.01 [facility] [address] [id number], [place] [id number] Sep, Allergic rhinitis, unspecified seasonali ty, unspecified trigger J30.9 and Shortness of breath R06.02 [facility] [id number], [place] [id number] Sep, 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 [facility] [address] [id number], [place] [id number] Aug, Mouth abscess K12.2 ; Mouth ulcer K12.1 ; Bloating R14.0 and Morbid obesity E66.01 [facility] [address] [id number], [place] [id number] Aug, [facility] [id number], [place] [id number] Aug, [facility] [address] [id number], [place] [id number] Jul, Major depressive disorder, recurrent, mo derate F33.1 ; Abscess of arm, left L02.414 ; BMI 45.0-49.9, adult Z68.42 and Morbid obesity E66.01 [facility] [address] [id number], [place] [id number] Jul, [facility] [address] [id number], [place] [id number] Jul, [facility] [address] [id number], [place] [id number] Jun, Pain in right knee M25.561 and Other chr onic pain G89.29 [facility] [address] [id number], [place] [id number] Jun, Benign essential hypertension I10 ; BMI 45.0-49.9, adult Z68.42 ; Morbid obesity E66.01 ; Vitamin D deficiency E55.9 ; Insomnia G47.00 ; 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 ; Edema R60.9 ; Recurrent major depressive disorder, in partial remission F33.41 ; Chronic fatigue R53.82 ; Acute pain of right knee M25.561 ; Metabolic syndrome E88.81 and Irritable mood R45.4 [facility] [address] [facility] [id number] [address] [place] [phone] Jun, [facility] [id number], [place] [id number] Jun, Irritable mood R45.4 [facility] [address] [facility] [id number] [address] [place] [phone] May, [facility] [address] [facility] [id number] [address] [place] [phone] 24 May, 2018 [facility] [address] [facility] [id number] [address] [place] [phone] 13 May, 2018 Recurrent major depressive d isorder, in partial remission F33.41 ; Mixed obsessional thoughts and acts F42.2 ; 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 and BMI 45.0-49.9, adult Z68.42 [facility] [address] [facility] [id number] [address] [place] [phone] Apr, [facility] [address] [facility] [id number] [address] [place] [phone] Apr, [facility] [address] [facility] [id number] [address] [place] [phone] 14 Apr, 2018 [facility] [address] [facility] [id number] [address] [place] [phone] Apr, [facility] [address] [facility] [id number] [address] [place] [phone] Mar, Mixed obsessional thoughts a nd acts F42.2 ; Recurrent major depressive disorder, in partial remission F33.41 ; DANIELA (generalized anxiety disorder) F41.1 and BMI 45.0-49.9, adult Z68.42 [facility] [address] [id number], [place] [id number] Mar, [facility] [address] [id number], [place] [id number] Mar, BMI 45.0-49.9, adult Z68.42 ; Instabilit y of right knee joint M25.361 and Rash R21 [place] [address] [facility] [id number] [address] [place] [phone] Jan, Recurrent major depressive d isorder, in partial remission F33.41 ; Mixed obsessional thoughts and acts F42.2 and BMI 45.0-49.9, adult Z68.[address] [place] [address] [id number], [place] [id number] Jan, [facility] [address] [id number], [place] [id number] Jan, Benign essential hypertension I10 ; BMI 45.0-49.9, adult Z68.42 ; Metabolic syndrome E88.81 and Allergic rhinitis, unspecified seasonality, unspecified trigger J30.9 [place] [address] [facility] [id number] [address] [place] [phone] Dec, DANIELA (generalized anxiety dis order) F41.1 and Depressive disorder, not elsewhere classified F32.9 [facility] [address] [id number], [place] [id number] Dec, Recurrent major depressive disorder, in partial remission F33.41 [facility] [address] [id number], [place] [id number] Dec, [facility] [address] [id number], [place] [id number] Nov, [facility] [address] [id number], [place] [id number] Nov, Recurrent major depressive disorder, in partial remission F33.41 [facility] [address] [facility] [id number] [address] [place] [phone] Nov, Recurrent major depressive d isorder, in partial remission F33.41 ; Mixed obsessional thoughts and acts F42.2 ; DANIELA (generalized anxiety disorder) F41.1 and BMI 45.0-49.9, adult Z68.42 [facility] [address] [id number], [place] [id number] Nov, [facility] [address] [id number], [place] [id number] Nov, Other conjunctivitis of both eyes H10.89 and Sciatica, right side M54.31 [facility] [address] [id number], [place] [id number] Nov, [facility] [address] [id number], [place] [id number] Nov, [facility] [address] [id number], [place] [id number] October, [facility] [address] [id number], [place] [id number] October, [facility] [address] [facility] [id number] [address] [place] [phone] October, BMI 45.0-49.9, adult Z68.42 ; Mixed obsessional thoughts and acts F42.2 ; Recurrent major depressive disorder, in partial remission F33.41 and DANIELA (generalized anxiety disorder) F41.1 [facility] [id number], [place] [id number] October, Benign essential hypertension I10 ; Morb id obesity E66.01 and BMI 45.0-49.9, adult Z68.[address] [facility] [address] [address] [id number], [place] [id number] Sep, [facility] [id number], [place] [id number] Sep, [facility] [address] [place] [address] A[place] [id number], [place] [id number] Sep, [facility] [id number], [place] [id number] Sep, Hospital discharge follow-up Z09 ; Aller gic rhinitis, unspecified seasonality, unspecified trigger J30.9 and Shortness of breath R06.[address] [id number], [place] [id number] Sep, Recurrent major depressive disorder, in partial remission F33.41 [facility] [id number], [place] [id number] Aug, Irritable mood R45.4 [place] [id number] [place] [phone] Aug, [facility] [id number], [place] [id number] Jul, Benign essential hypertension I10 ; Robert a R60.9 and Impacted cerumen of left ear H61.22 [place] [address] [place] [id number] [address] [place] [phone] Jul, Major depression F32.9 ; Rec urrent major depressive disorder, in partial remission F33.41 and Anxiety F41.9 [place] [address] [place] [id number] [address] [place] [phone] Jun, Major depression F32.9 ; Rec urrent major depressive disorder, in partial remission F33.41 and Anxiety F41.[address] [id number], [place] [id number] Jun, Major depression F32.9 ; Morbid obesity E66.01 ; Irritable mood R45.4 ; Hand weakness R29.898 and Vitamin D deficiency E55.9 [facility] [address] [id number], [place] [id number] Jun, [facility] [address] [id number], [place] [id number] May, Major depression F32.9 [place] [address] [facility] [id number] [address] [place] [phone] May, Major depression F32.9 [facility] [address] [id number], [place] [id number] May, BMI 50.0-59.9, adult Z68.43 ; Major depr ession F32.9 ; Anxiety F41.9 ; Hypertrophic toenail L60.2 and Pain of left great toe M79.675 [facility] [id number] [place] [address] [id number] May, Recurrent major depressive disorder, in partial remission F33.41 [place] [address] [facility] [id number] [address] [place] [phone] Apr, [facility] [id number] [place] [address] [id number] Apr, [facility] [address] [facility] [id number] [address] [place] [phone] Apr, Major depression F32.9 [facility] [id number] [place] [address] [id number] Apr, Severe episode of recurrent major depres sive disorder, without psychotic features F33.2 ; Anxiety F41.9 and Insomnia G47.00 [facility] [id number] [place] [address] [id number] Apr, [facility] [address] [facility] [id number] [address] [place] [phone] Apr, [facility] [id number] [place] [address] [id number] Apr, [facility] [address] [id number], [place] [id number] Mar, [facility] [address] [id number], [place] [id number] Mar, Allergic conjunctivitis of both eyes H10 .13 [facility] [address] [facility] [id number] [address] [place] [phone] Mar, Major depression F32.9 [facility] [address] [id number], [place] [id number] Mar, Metabolic syndrome E88.81 ; History of g astric bypass Z98.890 ; Benign essential hypertension I10 ; Allergic conjunctivitis of both eyes H10.13 and Morbid obesity E66.01 [facility] [address] [facility] [id number] [address] [place] [phone] Mar, Major depression F32.9 [place] [address] [facility] [id number], [place] [id number] Feb, [facility] [address] [facility] [id number] [address] [place] [phone] Feb, Major depression F32.9 [place] [address] [facility] [id number], [place] [id number] Feb, Subacute maxillary sinusitis J01.00 and Bronchitis J40 [place] [address] [facility] [id number] [address] [place] [phone] Feb, Major depressive disorder, r ecurrent, moderate F33.1 [facility] [address] [id number], [place] [id number] Jan, [facility] [address] [id number], [place] [id number] Jan, Acute non-recurrent maxillary sinusitis J01.00 and Skin tag L91.8 [facility] [address] [id number], [place] [id number] Jan, Cough R05 and Sinus congestion R09.81 [facility] [address] [id number], [place] [id number] Jan, [facility] [place] [address] [place] [address] A[address] [id number], [place] [id number] Jan, Benign essential hypertension I10 ; Hist ory of gastric bypass Z98.890 and Nausea and vomiting in adult R11.2 [facility] [address] [facility] [id number] [address] [place] [id number] 04 Jan, 2017 Major depressive disorder, r ecurrent, moderate F33.1 [place] [address] [facility] [id number] [address] [place] [id number] Dec, Insomnia G47.00 ; Recurrent major depressive disorder, in partial remission F33.41 and Morbid obesity E66.01 [facility] [address] [id number] [id number] Dec, [facility] [address] [id number] [place] [id number] Dec, Chronic bacterial conjunctivitis of left eye H10.402 [facility] [address] [id number] [id number] Nov, [facility] [address] [id number][place] [id number] Nov, Dental examination Z01.20 [facility] [address] [id number] [id number] Nov, Benign essential hypertension I10 ; Hist ory of gastric bypass Z98.890 and Nausea and vomiting in adult R11.2 [facility] [address] [facility] [id number] [address] [place] [id number] 13 Nov, 2016 Major depressive disorder, r ecurrent, moderate F33.1 ; Generalized anxiety disorder F41.1 and Insomnia due to other mental disorder F51.05 [place] [id number] [facility] [id number] [address] [place] [phone] 12 Nov, 2016 Recurrent major depressive d isorder, in partial remission F33.41 ; Insomnia G47.00 and Morbid obesity E66.01 [facility] [address] [id number] FANNYKiesha S [id number] October, Abscess of left arm L02.414 [facility] [address] [facility] [id number] [address] [place] [phone] October, Morbid obesity E66.01 ; Lida r depression F32.9 and Recurrent major depressive disorder, in partial remission F33.[address] [place] [id number] [place] [address] [id number] Sep, Benign essential hypertension I10 ; Morb id obesity E66.01 ; S/P gastric bypass Z98.84 ; Abscess L02.91 and Chronic bacterial conjunctivitis of left eye H10.[address] [id number] [place] [address] [id number] Sep, Dental examination Z01.20 [place] [address] [place] [id number] [address] [place] [phone] Sep, Morbid obesity E66.01 ; Lida r depression F32.9 and Recurrent major depressive disorder, in partial remission F33.41 [place] [address] [place] [id number] [address] [place] [id number] Jul, [place] [address] [place] [id number] [address] [place] [id number] Jul, Major depressive disorder, r ecurrent, moderate F33.1 [place] [address] [place] [id number] [address] [place] [phone] Jul, Major depressive disorder, r ecurrent, moderate F33.1 and Generalized anxiety disorder F41.1 [facility] [id number] [place] [address] [id number] Jul, Cough R05 [place] [address] [place] [id number] [address] [place] [phone] 16 Jul, 2016 Morbid obesity E66.01 ; Lida r depression F32.9 and Recurrent major depressive disorder, in partial remission F33.41 [facility] [address] [id number][place] [id number] Jul, [facility] [place] [id number] [place] [address] [id number] Jul, [facility] [address] [id number] [place] [address] [id number] Jul, Gastroenteritis K52.9 and Cough R05 [facility] [address] [id number] [place] [address] [id number] Jun, Acute bacterial conjunctivitis of left e ye H10.32 [facility] [address] [facility] [id number] [address] [place] [phone] Jun, [facility] [address] [facility] [id number] [address] [place] [phone] Jun, Recurrent major depressive d isorder, in partial remission F33.41 [facility] [address] [place] [id number] [address] [place] [phone] May, Major depression F32.9 and M orbid obesity E66.01 [place] [address] [facility] [id number] [address] [place] [phone] May, [facility] [address] [facility] [id number] [place] [address] [id number] May, Thrush B37.0 [facility] [address] [facility] [id number] [address] [place] [phone] Apr, Major depressive disorder, r ecurrent, moderate F33.1 [facility] [address] [facility] [id number] [address] [place] [phone] Apr, Insomnia G47.00 ; Major depr ession F32.9 and Recurrent major depressive disorder, in partial remission F33.41 [facility] [address] [facility] [id number] [address] [place] [phone] Apr, [facility] [address] [facility] [id number] [address] [place] [phone] Apr, Major depression F32.9 and R ecurrent major depressive disorder, in partial remission F33.41 [facility] [id number] [place] [address] [id number] Mar, Benign essential hypertension I10 ; Morb id obesity E66.01 ; Impacted cerumen of both ears H61.23 ; Laceration of finger of right hand, initial encounter S61.219A and Encounter for immunization Z23 [facility] [address] [facility] [id number] [address] [place] [id number] 17 Mar, 2016 [facility] [address] [facility] [id number] [address] [place] [phone] Mar, [facility] [address] [facility] [id number] [address] [place] [phone] Mar, [id number] [place] [address] [id number] Feb, Nausea R11.0 ; Blood in the stool K92.1 and Benign essential hypertension I10 [facility] [address] [facility] [id number] [address] [place] [phone] Feb, Major depression F32.9 and R ecurrent major depressive disorder, in partial remission F33.41 [place] [address] [facility] [address] [id number], [place] [id number] Feb, [facility] [address] [address] [address] [id number][place] [id number] Feb, Recurrent major depressive disorder, in partial remission F33.41 [facility] [address] [id number][place] [id number] Jan, [facility] [place] [address] [id number] [place] [address] [id number] Jan, Benign essential hypertension I10 ; Robert a R60.9 and Hyperlipidemia, unspecified hyperlipidemia type E78.[address] [place] [address] [id number][place] [id number] Jan, Recurrent major depressive disorder, in partial remission F33.41 [facility] [address] [id number] Kiesha ESCOBEDO S [id number] Jan, [facility] [place] [address] [id number][place] [id number] Jan, [facility] [place] [address] [id number][place] [id number] Jan, [facility] [address] [facility] [id number] [address] [place] [phone] Jan, [facility] [address] [facility] [id number] [address] [place] [phone] Dec, [facility] [address] [facility] [id number] [address] [place] [phone] Nov, [facility] [address] [facility] [id number] [address] [place] [phone] Nov, Major depression F32.9 [facility] [address] [facility] [id number] [address] [place] [phone] Nov, [facility] [address] [facility] [id number] [address] [place] [phone] Nov, [facility] [address] [facility] [id number] [address] [place] [phone] Nov, Major depressive disorder, r ecurrent episode, mild F33.0 and Anxiety F41.9 [facility] [address] [address] [id number][place] [id number] Nov, [facility] [address] [id number], [place] [id number] October, Left elbow pain M25.522 and Other season al allergic rhinitis J30.2 [facility] [address] [id number][place] [id number] October, [facility] [address] [facility] [id number] [address] [place] [phone] October, Major depressive disorder, r ecurrent, moderate F33.1 [facility] [address] [facility] [id number] [address] [place] [id number] October, Major depression F32.9 [facility] [address] [facility] [id number] [address] [place] [phone] Sep, [place] or callus L84 and Onych omycosis B35.1 [facility] [address] [facility] [id number] [address] [place] [phone] Sep, Major depressive disorder, r ecurrent, moderate F33.1 [facility] [address] [facility] [id number] [address] [place] [phone] Sep, Major depression F32.9 [facility] [address] [facility] [id number] [address] [place] [phone] Sep, Moderate episode of recurren t major depressive disorder F33.1 [facility] [address] [id number], [place] [id number] Sep, Muscle strain T14.8 [facility] [address] [facility] [id number] [address] [place] [phone] Aug, Major depression F32.9 [facility] [address] [facility] [id number] [address] [place] [phone] Aug, Major depression F32.9 [facility] [address] [facility] [id number] [address] [place] [phone] Jul, Morbid obesity E66.01 and Ma cora depression F32.9 [facility] [address] [id number] [address] [place] [phone] Jul, Depression, major, recurrent , moderate F33.1 [facility] [address] [id number], [place] [id number] Jul, [facility] [address] [facility] [id number] [address] [place] [phone] Jul, [facility] [address] [facility] [id number] [address] [place] [id number] 16 Jul, 2015 Major depression F32.9 and M orbid obesity E66.[id number] [place] [address] [id number] 11 Jul, 2015 Type II diabetes mellitus E11.9 ; Callus of foot L84 ; Benign essential hypertension I10 and Renal insufficiency N28.9 [place] [address] [facility] [id number] [address] [place] [phone] 09 Jul, 2015 Depression, major, recurrent , moderate F33.1 [place] [address] [facility] [id number] [address] [place] [phone] Jul, Major depression F32.9 [place] [address] [place] [id number] [address] [place] [phone] Jul, [place] [address] [place] [id number] [address] [place] [phone] Jun, Major depression F32.9 [place] [address] [facility] [id number] [address] [place] [phone] Jun, Major depressive disorder, r ecurrent, moderate F33.1 [place] [address] [place] [id number] [address] [place] [phone] Jun, [place] [address] [place] [id number] [address] [place] [phone] Jun, Major depressive disorder, r ecurrent, moderate F33.1 and Major depression F32.[address] [id number], [place] [id number] Jun, Type II diabetes mellitus E11.9 [place] [address] [facility] [id number] [address] [place] [phone] Jun, Depression, major, recurrent , moderate F33.1 [place] [address] [facility] [id number] [address] [place] [phone] May, Major depressive disorder, r ecurrent, moderate F33.1 [facility] [address] [facility] [id number] [address] [place] [phone] May, [address] [id number] [place] [address] [id number] May, Edema R60.9 [facility] [address] [facility] [id number] [address] [place] [phone] May, Insomnia G47.00 and Major de pression F32.[address] [id number] [place] [address] [id number] 15 May, 2015 Morbid obesity E66.01 ; Edema R60.9 ; Sh ortness of breath R06.02 ; Benign essential hypertension I10 and Renal insufficiency N28.[address] [id number] [place] [address] [id number] May, Hyperlipemia 272.4 and Renal insufficien cy N28.9 [place] [id number] [facility] [id number] [address] [place] [phone] Apr, Major depression F32.9 [place] [address] [facility] [id number] [address] [place] [phone] Apr, [facility] [address] [facility] [id number] [address] [place] [phone] Apr, Major depressive disorder, r ecurrent, moderate F33.[address] [id number] [place] [address] [id number] Apr, Type II diabetes mellitus E11.9 ; Benign essential hypertension I10 ; Edema R60.9 and Renal insufficiency N28.9 [facility] [address] [facility] [id number] [address] [place] [phone] Mar, Major depressive disorder, r ecurrent, moderate F33.1 [place] [id number] [facility] [id number] [address] [place] [phone] Mar, [facility] [address] [facility] [id number] [address] [place] [phone] Mar, Major depression F32.9 [facility] [id number] [place] [address] [id number] 08 Mar, 2015 Morbid obesity E66.01 ; Benign essential hypertension I10 and Type II diabetes mellitus E11.9 [place] [address] [place] [id number] [address] [place] [phone] Feb, Major depressive disorder, r ecurrent, moderate F33.1 [place] [address] [place] [id number] [address] [place] [phone] 24 Feb, 2015 Major depressive disorder, r ecurrent episode, in partial or unspecified remission 296.35 ; Anxiety state, unspecified 300.00 and Morbid obesity 278.01 [place] [address] [facility] [id number] [address] [place] [phone] Feb, [address] [id number] [place] [address] [id number] 16 Feb, 2015 Vomiting 787.03 and Viral syndrome 079.9 [address] [place] [id number] [address] [place] [phone] 15 Feb, 2015 Major depression, recurrent 296.30 ; Generalized anxiety disorder 300.02 and No condition on Perry II V71.[address] [id number] [place] [address] [id number] Feb, Skin tag 701.9 [place] [address] [facility] [id number] [address] [place] [id number] Feb, [address] [id number] [address] [place] [phone] Jan, Depression, major, recurrent , moderate 296.[address] [id number] [place] [address] [id number] Jan, Nausea and vomiting 787.01 ; Rib pain on right side 786.50 and Fall on or from sidewalk curb E880.1 [place] [address] [place] [id number] [address] [place] [phone] Jan, [facility] [address] [facility] [id number] [address] [place] [phone] Jan, Major depressive disorder, r ecurrent episode, in partial or unspecified remission 296.35 and Anxiety state, unspecified 300.00 [facility] [address] [place] [address] AVE [id number], [place] [id number] Jan, [facility] [address] [place], [place] [id number] [address] [place] [phone] Jan, Depression, major, recurrent , moderate 296.[address] [phone] Jan, Major depression, recurrent 296.30 ; No condition on Perry II V71.09 and No condition on axis III V71.09 [facility] [address] [place] [address] A[place] [id number], [place] [id number] Jan, Drug-induced nausea and vomiting 787.01 [facility] [address] [place] [id number] [address] [place] [phone] Jan, Depression, major, recurrent , moderate 296.32 [place] [id number] [address] [place] [phone] Dec, Depression, major, recurrent , moderate 296.32 [facility] [address] [place] [address] A[address] [id number], [place] [id number] Dec, Morbid obesity 278.01 ; Metabolic syndro me 277.7 ; Hyperlipemia 272.4 ; Benign essential hypertension 401.1 ; Dietary counseling V65.3 ; Exercise counseling V65.41 and Inflamed skin tag 701.9 [place] [id number] [place] [phone] Dec, Depression, major, recurrent , moderate 296.32 [facility] [address] [place], [place] [id number] [address] [place] [id number] Dec, [facility] [address] [id number] Dec, Major depression, recurrent 296.30 ; Anxiety, generalized 300.02 and No condition on Perry II V71.09 [place] [address] [place] 911052[address] Dec, Depression, major, recurrent , moderate 296.[address] [phone] Dec, Major depressive disorder, r ecurrent episode, moderate 296.32 [place] [id number] Dec, Depression, major, recurrent , moderate 296.[address] [id number] Dec, Depression, major, recurrent , moderate 296.32 [place] [id number] Dec, Depression, major, recurrent , moderate 296.[address] [id number] Dec, Depression, major, recurrent , moderate 296.[address] [id number] Nov, Depression, major, recurrent , moderate 296.[address] [address] Nov, Major depression 296.20 ; So cial phobia 300.23 and No condition on Perry II V71.[address] [address] Nov, Depression, major, recurrent , moderate 296.[address] [id number] Nov, Major depressive disorder, r ecurrent episode, moderate 296.32 and Generalized anxiety disorder 300.02 [place] [id number] [place] [phone] 09 Nov, 2014 Depression, major, recurrent , moderate 296.32 [facility] [address] [id number] [address] [place] [phone] Nov, Depression, major, recurrent , moderate 296.32 [facility] [address] [id number] [address] [place] [phone] October, Generalized anxiety disorder 300.02 ; No condition on Perry II V71.09 and Major depressive disorder, recurrent 296.30 [facility] [address] [id number] [address] [place] [phone] Sep, [facility] [address] [id number] [address] [place] [phone] Sep, [facility] [address] [id number] [address] [place] [phone] Aug, [facility] [address] [id number] [address] [place] [phone] Aug, [facility] [address] [id number] [address] [place] [phone] Aug, [facility] [address] [id number] [address] [place] [phone] Aug, [facility] [address] [id number] [address] [place] [id number] Aug, [facility] [address] [id number] [address] [place] [phone] Aug, [facility] [address] [id number] [address] [place] [phone] Aug, [facility] [address] [id number] [address] [place] [phone] Aug, [facility] [address] [id number] [place] [phone] Aug, [facility] [address] [id number] [address] [place] [address], [place] [id number] 13 Aug, 2014 [facility] [address] [id number] [address] [place] [address], [place] [id number] 13 Aug, 2014 [facility] [place] [facility] [address] [id number] [address] [place] [address], [place] [id number] 13 Aug, 2014 [facility] [address] [id number] [address] [place] [address], [place] [id number] 12 Aug, 2014 [facility] [place] [facility] [address] [id number] [address] [place] [address], [place] [id number] 12 Aug, 2014 [facility] [address] [id number] [address] [place] [address], [place] [id number] Aug, [facility] [place] [facility] [address] [id number] [address] [place] [address], [place] [id number] Aug, [facility] [address] [id number] [address] [place] [address], [place] [id number] Aug, [facility] [address] [id number] [address] [place] [address], [place] [id number] Aug, [facility] [address] [id number] [address] [place] [address], [place] [id number] Jul, [facility] [address] [id number] [address] [place] [address], [place] [id number] Jul, [facility] [place] [facility] [address] [id number] [address] [place] [address], [place] [id number] 16 Jul, 2014 [facility] [place] [facility] [address] [id number] [address] [place] [address], [place] [id number] Jul, 2014 [facility] [place] [facility] [address] [id number] [address] [place] [address], [place] [id number] Jul, [facility] [place] [facility] [address] [id number] [address] [place] [address], [place] [id number] Jul, 2014 [facility] [place] [facility] [address] [id number] [address] [place] [address], [place] [id number] Jun, [facility] [address] [id number] [address] [place] [address], [place] [id number] Jun, [facility] [address] [id number] [address] [place] [address], [place] [id number] Jun, [facility] [address] [id number] [address] [place] [address], [place] [id number] Jun, [facility] [address] [id number] [address] [place] [address], [place] [id number] Jun, [facility] [address] [id number] [address] [place] [address], [place] [address] Jun, [facility] [address] [id number] [address] [place] [address], [place] [address] Jun, [facility] [address] [id number] [address] [place] [address], [place] [address] Jun, [facility] [address] [id number] [address] [place] [address], [place] [id number] Jun, [facility] [address] [id number] [address] [place] [address], [place] [address] Jun, [facility] [address] [id number] [address] [place] [id number] Jun, [facility] [address] [id number] [address] [place] [address], [place] [address] Jun, [facility] [address] [id number] [id number] Jun, [facility] [address] [id number] [address] [place] [address], [place] [address] Jun, [facility] [address] [id number] [address] [place] [address], [place] [address] Jun, [facility] [address] [id number] [address] [place] [address], [place] [address] Jun, [facility] [address] [id number] [address] [place] [address], [place] [address] May, [facility] [address] [id number] [address] [place] [address], [place] [address] May, [facility] [address] [id number] [address] [place] [address], [place] [address] May, [facility] [address] [id number] [address] [place] [address], [place] [address] May, [facility] [address] [id number] [address] [place] [address], [place] [id number] Apr, [facility] [address] [id number] [address] [place] [address], [place] [address] Apr, [facility] [address] [id number] [address] [place] [address], [place] [address] Apr, [facility] [address] [id number] [address] [place] [address], [place] [address] Apr, [facility] [address] [id number] [address] [place] [address], [place] [address] Apr, [facility] [address] [id number] [address] [place] [address], [place] [address] Apr, [facility] [address] [id number] [address] [place] [address], [place] [id number] Apr, [facility] [address] [id number] [address] [place] [address], [place] [address] Apr, [facility] [address] [id number] [address] [place] [address], [place] [id number] Apr, [facility] [address] [id number] [address] [place] [address], [place] [address] Apr, [facility] [address] [id number] [address] [place] [address], [place] [id number] Apr, [facility] [place] [facility] [address] [id number] [address] [place] [address], [place] [address] Apr, [facility] [place] [facility] [address] [id number] [address] [place] [address], [place] [address] Apr, [facility] [place] [facility] [address] [id number] [address] [place] [address], [place] [address] Apr, [facility] [place] [facility] [address] [id number] [address] [place] [address], [place] [address] Apr, [facility] [place] [facility] [address] [id number] [address] [place] [address], [place] [address] Apr, [facility] [place] [facility] [address] [id number] [address] [place] [address], [place] [address] Apr, [facility] [place] [facility] [address] [id number] [address] [place] [address], [place] [address] Apr, [facility] [place] [facility] [address] [id number] [address] [place] [address], [place] [address] Apr, [facility] [place] [facility] [address] [id number] [address] [place] [address], [place] [address] Apr, [facility] [place] [facility] [address] [id number] [address] [place] [address], [place] [address] Mar, [facility] [place] [facility] [address] [id number] [address] [place] [address], [place] [address] Mar, [facility] [address] [id number] [address] [place] [address], [place] [address] Mar, [facility] [place] [facility] [address] [id number] [address] [place] [address], [place] [address] Mar, [facility] [place] [facility] [address] [id number] [address] [place] [address], [place] [address] Mar, [facility] [place] [facility] [address] [id number] [address] [place] [address], [place] [address] Mar, [facility] [place] [facility] [address] [id number] [address] [place] [address], [place] [address] Mar, [facility] [place] [facility] [address] [id number] [address] [place] [address], [place] [address] Mar, [facility] [place] [facility] [address] [id number] [address] [place] [address], [place] [address] Mar, [facility] [place] [facility] [address] [id number] [address] [place] [address], [place] [address] Mar, [facility] [place] [facility] [address] [id number] [address] [place] [address], [place] [address] Feb, [facility] [place] [facility] [address] [id number] [address] [place] [address], [place] [address] Feb, [facility] [place] [facility] [address] [id number] [address] [place] [address], [place] [address] Feb, [facility] [place] [facility] [address] [id number] [address] [place] [address], [place] [address] Feb, [facility] [place] [facility] [address] [id number] [address] [place] [address], [place] [address] Jan, [facility] [place] [facility] [address] [id number] [address] [place] [address], [place] [address] Jan, [facility] [place] [facility] [address] [id number] [address] [place] [address], [place] [address] Jan, [facility] [place] [facility] [address] [id number] [address] [place] [address], [place] [address] Jan, [facility] [place] [facility] [address] [id number] [address] [place] [address], [place] [address] Jan, [facility] [place] [address] [id number] [address] [place] [address], [place] [address] Jan, [facility] [place] [address] [id number] [address] [place] [address], [place] [address] Dec, [facility] [place] [address] [id number] [address] [place] [address], [place] [address] Dec, [facility] [place] [address] [id number] [address] [place] [address], [place] [address] Nov, [facility] [place] [facility] [address] [id number] [address] [place] [address], [place] [address] Nov, [facility] [address] [id number] [address] [place] [address], [place] [address] Nov, [facility] [address] [id number] [address] [place] [address], [place] [address] Nov, [facility] [address] [id number] [address] [place] [address], [place] [address] Nov, [facility] [address] [id number] [address] [place] [address], [place] [address] Nov, [facility] [address] [id number] [address] [place] [address], [place] [address] Sep, [facility] [address] [id number] [address] [place] [address], [place] [address] Sep, [facility] [address] [id number] [address] [place] [address], [place] [address] Sep, [facility] [address] [id number] [address] [place] [address], [place] [address] Sep, [facility] [address] [id number] [address] [place] [address], [place] [address] Aug, [facility] [address] [id number] [address] [place] [address], [place] [address] Aug, [facility] [address] [id number] [address] [place] [address], [place] [address] Jul, [facility] [address] [id number] [address] [place] [address], [place] [address] Jul, [facility] [address] [id number] [address] [place] [address], [place] [address] Jun, [facility] [address] [id number] [address] [place] [address], [place] [address] Jun, [facility] [address] [id number] [address] [place] [address], [place] [address] Jun, [facility] [address] [id number] [address] [place] [address], [place] [address] Jun, [facility] [address] [id number] [address] [place] [address], [place] [address] May, [facility] [address] [id number] [address] [place] [address], [place] [address] May, [facility] [address] [id number] [address] [place] [address], [place] [address] May, [facility] [address] [id number] [address] [place] [address], [place] [address] May, [facility] [address] [id number] [address] [place] [address], [place] [address] May, [facility] [address] [id number] [address] [place] [address], [place] [address] May, [facility] [address] [id number] [address] [place] [address], [place] [address] Apr, [facility] [address] [id number] [address] [place] [address], [place] [address] Apr, [facility] [address] [id number] [address] [place] [address], [place] [address] Apr, [facility] [address] [id number] [address] [place] [address], [place] [address] Apr, [facility] [address] [id number] [address] [place] [address], [place] [address] Mar, [facility] [address] [id number] [address] [place] [address], [place] [address] Mar, [facility] [address] [id number] [address] [place] [address], [place] [address] Mar, [facility] [address] [id number] [address] [place] [address], [place] [address] Mar, [facility] [address] [id number] [address] [place] [address], [place] [address] Feb, [facility] [address] [id number] [id number] Jan, [facility] [address] [id number] [address] [place] [id number] Jan, [facility] [address] [id number] [address] [place] [id number] Dec, [facility] [address] [id number] [address] [place] [id number] Dec, [facility] [address] [id number] [address] [place] [phone] Dec, [facility] [address] [id number] [id number] Dec, [facility] [address] [id number] [address] [place] [id number] Nov, [facility] [address] [id number] [address] [place] [phone] Nov, [facility] [address] [id number] [address] [place] [phone] Nov, [facility] [address] [id number] [address] [place] [phone] Nov, [facility] [address] [id number] [address] [place] [id number] Nov, [facility] [address] [id number] [address] [place] [phone] October, [facility] [address] [id number] [address] [place] [id number] October, [facility] [address] [id number] [address] [place] [id number] Aug, [facility] [address] [id number] [address] [place] [id number] Nov, IMMUNIZATIONS No Known Immunizations SOCIAL HISTORY Never Assessed REASON FOR VISIT PLAN OF CARE VITAL SIGNS MEDICATIONS Unknown Medications RESULTS No Results PROCEDURES Procedure Date Ordered Result Body Site LIPID PANEL December 04, 2013 COMPREHEN METABOLIC PANEL December 04, 2013 VENIPUNCT, ROUTINE* December 04, 2013 INSTRUCTIONS MEDICATIONS ADMINISTERED No Known Medications [...] 03/2016 Hospitalization History gastric sleeve Hospitalization History [facility] Trouble with left shoulder blade 08/2017
--- OUTSIDE RECORDS SUMMARY | 2019-11-29 09:04 | XMS REPORT ---
Author Author Curt DIAZ [facility] Address [address] [place] [address] Care Team Providers Care Director Medical Science Name Role Phone JOE CHRIS Unavailable PROBLEMS Type Condition ICD9-CM Code CRG07-SB Code Onset Dates Condition S tatus SNOMED Code Problem Insomnia G47.00 Active 395492053 Problem Hyperlipemia E78.5 Active 0964215 4 Problem Morbid obesity E66.01 Active 69678 6002 Problem Benign essential hypertension I10 Active 5179411 Problem Renal insufficiency N28.9 Active 531026847 Problem Edema R60.9 Active 277657287 Problem Severe episode of recurrent major depressive disorder, without psychotic features F33.2 Active 89865182 Problem Metabolic syndrome E88.81 Active 2 70017682 Problem DANIELA (generalized anxiety disorder) F41.1 Active 22696778 Problem BMI 45.0-49.9, adult Z68.42 Active 473957927 Problem Sciatica, right side M54.31 Active [id number] Problem Hammer toe of second toe of right foot M20.41 Active 786336788 Problem Mixed obsessional thoughts and acts F42.2 Active 89538089 Problem Hammer toe of right foot M20.41 Activ e 618392596 Problem Vitamin D deficiency E55.9 Active 90320303 Problem Chronic fatigue R53.82 Active 8422 9001 Problem Other chronic pain G89.29 Active 8 0689781 Problem Borderline personality disorder F60.3 Active 01002606 Problem Callous ulcer, limited to breakdown of skin L98.49 1 Active ALLERGIES Substance Reaction Event Type Date Status alternaria tenuis throat swells Non Drug Allergy Aug, Activ e Wheat throat swells Non Drug Allergy Aug, Active Ragweed throat swells Non Drug Allergy Aug, Active [place] Elm throat swells Drug Allergy Aug, Active Peanut (Diagnostic) throat swells Drug Allergy Aug, Active Egg White (Diagnostic) throat swells Drug Allergy Aug, Acti ve Cows Milk throat swells Non Drug Allergy Aug, Active ENCOUNTERS Encounter Location Date Diagnosis [facility] [address] [id number], [place] [id number] Jun, [facility] [address] [facility] [id number] [address] [place] [id number] Mar, [facility] [address] [facility] [id number] [address] [place] [phone] Feb, [address] [id number], [place] [id number] Feb, [facility] [address] [place] [address] Feb, [facility] [address] [place] [id number] [place] [phone] Feb, [facility] [address] [place] [id number] [address] [place] [address] Feb, DANIELA (generalized anxiety dis order) F41.1 ; Severe episode of recurrent major depressive disorder, without psychotic features F33.2 ; Mixed obsessional thoughts and acts F42.2 and Borderline personality disorder F60.3 [facility] [address] [place] [id number] [address] [place] [phone] Feb, [facility] [address] [place] [address] Jan, [facility] [address] [place] [id number] [address] [place] [phone] Jan, [facility] [address] [place] [id number] [address] [place] [address] Jan, [facility] [address] [id number], [place] [id number] Jan, Callus of heel L84 ; Fissure in skin R23 .4 and Hammer toe of second toe of right foot M20.[address] [id number], [place] [id number] Jan, [facility] [address] [facility] [id number] [address] [place] [phone] Jan, [facility] [address] [facility] [id number] [address] [place] [phone] Jan, [facility] [address] [place] [id number] [address] [place] [phone] Jan, Severe episode of recurrent major depressive disorder, without psychotic features F33.2 ; DANIELA (generalized anxiety disorder) F41.1 ; Mixed obsessional thoughts and acts F42.2 and Borderline personality disorder F60.3 [facility] [address] [facility] [id number] [address] [place] [phone] Jan, [id number] [place] [address] [id number] Jan, Benign essential hypertension I10 [id number] [place] [address] [id number] Dec, Callous ulcer, limited to breakdown of s kin L98.491 and Morbid obesity E66.01 [facility] [address] [facility] [id number] [address] [place] [phone] Dec, [facility] [address] [place] [id number] [address] [place] [phone] Dec, [facility] [address] [facility] [id number] [address] [place] [phone] Dec, [facility] [address] [facility] [id number] [address] [place] [phone] Dec, [facility] [address] [place] [id number] [address] [place] [phone] Dec, Severe episode of recurrent major depressive disorder, without psychotic features F33.2 [facility] [address] [facility] [id number] [address] [place] [phone] Dec, DANIELA (generalized anxiety dis order) F41.1 ; Severe episode of recurrent major depressive disorder, without psychotic features F33.2 ; Mixed obsessional thoughts and acts F42.2 and 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 [facility] [address] [id number], [place] [id number] Dec, Morbid obesity E66.01 [facility] [address] [facility] [id number] [address] [place] [phone] Dec, [facility] [address] [facility] [id number] [address] [place] [phone] Dec, [address] [address] Nov, [facility] [address] [id number], [place] [id number] Nov, [facility] [address] [facility] [id number] [address] [place] [phone] Nov, [facility] [address] [facility] [id number] [address] [place] [phone] Nov, [facility] [address] [facility] [id number] [address] [place] [phone] Nov, DANIELA (generalized anxiety dis order) F41.1 ; Severe episode of recurrent major depressive disorder, without psychotic features F33.2 ; Mixed obsessional thoughts and acts F42.2 and 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 [facility] [place] [address] [facility] [address] [id number], [place] [id number] Nov, Morbid obesity E66.01 [facility] [address] [facility] [id number] [address] [place] [phone] Nov, [facility] [address] [facility] [id number] [address] [place] [phone] Nov, DANIELA (generalized anxiety dis order) F41.1 ; Mixed obsessional thoughts and acts F42.2 ; Severe episode of recurrent major depressive disorder, without psychotic features F33.2 and 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 [facility] [address] [id number], [place] [id number] October, Morbid obesity E66.01 [facility] [address] [id number], [place] [id number] October, Benign essential hypertension I10 and Mo rbid obesity E66.01 [facility] [address] [id number], [place] [id number] October, [facility] [address] [place] [id number] [address] [place] [address] October, Severe episode of recurrent major depressive disorder, without psychotic features F33.2 [facility] [address] [facility] [address] [id number], [place] [id number] October, Morbid obesity E66.01 [facility] [address] [id number], [place] [id number] October, [facility] [address] [place] [phone] October, Severe episode of recurrent major depressive disorder, without psychotic features F33.2 ; DANIELA (generalized anxiety disorder) F41.1 ; Mixed obsessional thoughts and acts F42.2 and 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 [facility] [address] [id number], [place] [id number] October, Morbid obesity E66.01 [facility] [address] [facility] [id number] [address] [place] [address] [id number] Sep, Dental examination Z01.20 [facility] [address] [facility] [address] [id number], [place] [id number] Sep, [facility] [address] [place] [id number] [address] [place] [phone] Sep, Sore in mouth K13.79 and Mor bid obesity E66.01 [facility] [address] [facility] [id number] [address] [place] [phone] Sep, Dental examination Z01.20 [facility] [address] [place] [address] [id number] [address] [address] Sep, Anxiety disorder, unspecifie d F41.9 [facility] [address] [id number], [place] [id number] Sep, Mouth ulcer K12.1 [facility] [address] [id number], [place] [id number] Sep, Morbid obesity E66.01 [facility] [address] [id number], [place] [id number] Sep, Allergic rhinitis, unspecified seasonali ty, unspecified trigger J30.9 and Shortness of breath R06.02 [facility] [place] [address] [place] [address] AVE [id number], [place] [id number] Sep, 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 [facility] [address] [id number], [place] [id number] Aug, Mouth abscess K12.2 ; Mouth ulcer K12.1 ; Bloating R14.0 and Morbid obesity E66.01 [facility] [address] [id number], [place] [id number] Aug, [facility] [address] [id number], [place] [id number] Aug, [facility] [address] [id number], [place] [id number] Jul, Major depressive disorder, recurrent, mo derate F33.1 ; Abscess of arm, left L02.414 ; BMI 45.0-49.9, adult Z68.42 and Morbid obesity E66.01 [facility] [address] [id number], [place] [id number] Jul, [facility] [id number], [place] [id number] Jul, [facility] [id number], [place] [id number] Jun, Pain in right knee M25.561 and Other chr onic pain G89.29 [facility] [address] [id number], [place] [id number] Jun, Benign essential hypertension I10 ; BMI 45.0-49.9, adult Z68.42 ; Morbid obesity E66.01 ; Vitamin D deficiency E55.9 ; Insomnia G47.00 ; 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 ; Edema R60.9 ; Recurrent major depressive disorder, in partial remission F33.41 ; Chronic fatigue R53.82 ; Acute pain of right knee M25.561 ; Metabolic syndrome E88.81 and Irritable mood R45.4 [facility] [address] [facility] [id number] [address] [place] [phone] Jun, [facility] [address] [id number], [place] [id number] Jun, Irritable mood R45.4 [facility] [address] [facility] [id number] [address] [place] [phone] May, [facility] [address] [facility] [id number] [address] [place] [address] May, [facility] [address] [facility] [id number] [address] [place] [phone] May, Recurrent major depressive d isorder, in partial remission F33.41 ; Mixed obsessional thoughts and acts F42.2 ; 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 and BMI 45.0-49.9, adult Z68.42 [facility] [address] [facility] [id number] [address] [place] [phone] Apr, [facility] [address] [facility] [id number] [address] [place] [address] Apr, [facility] [address] [facility] [id number] [address] [place] [phone] Apr, [facility] [address] [facility] [id number] [address] [place] [phone] Apr, [facility] [address] [place] [id number] [address] [place] [address] Mar, Mixed obsessional thoughts a nd acts F42.2 ; Recurrent major depressive disorder, in partial remission F33.41 ; DANIELA (generalized anxiety disorder) F41.1 and BMI 45.0-49.9, adult Z68.42 [facility] [address] [id number], [place] [id number] Mar, [facility] [address] [id number], [place] [id number] Mar, BMI 45.0-49.9, adult Z68.42 ; Instabilit y of right knee joint M25.361 and Rash R21 [place] [address] [facility] [id number] [address] [place] [phone] Jan, Recurrent major depressive d isorder, in partial remission F33.41 ; Mixed obsessional thoughts and acts F42.2 and BMI 45.0-49.9, adult Z68.42 [facility] [address] [id number], [place] [id number] Jan, [facility] [address] [id number], [place] [id number] Jan, Benign essential hypertension I10 ; BMI 45.0-49.9, adult Z68.42 ; Metabolic syndrome E88.81 and Allergic rhinitis, unspecified seasonality, unspecified trigger J30.9 [facility] [address] [facility] [id number] [address] [place] [address] Dec, DANIELA (generalized anxiety dis order) F41.1 and Depressive disorder, not elsewhere classified F32.9 [facility] [address] [id number], [place] [id number] Dec, Recurrent major depressive disorder, in partial remission F33.41 [facility] [address] [id number], [place] [id number] Dec, [facility] [address] [id number], [place] [id number] Nov, [facility] [address] [id number], [place] [id number] Nov, Recurrent major depressive disorder, in partial remission F33.41 [facility] [address] [place] [address] Nov, Recurrent major depressive d isorder, in partial remission F33.41 ; Mixed obsessional thoughts and acts F42.2 ; DANIELA (generalized anxiety disorder) F41.1 and BMI 45.0-49.9, adult Z68.[address] [facility] [address] [id number], [place] [id number] Nov, [facility] [address] [id number], [place] [id number] Nov, Other conjunctivitis of both eyes H10.89 and Sciatica, right side M54.[address] [facility] [address] [id number], [place] [id number] Nov, [facility] [address] [id number], [place] [id number] Nov, [facility] [address] [id number], [place] [id number] October, [facility] [address] [id number], [place] [id number] October, [place] [address] [facility] [id number] [address] [place] [address] October, BMI 45.0-49.9, adult Z68.42 ; Mixed obsessional thoughts and acts F42.2 ; Recurrent major depressive disorder, in partial remission F33.41 and DANILEA (generalized anxiety disorder) F41.[address] [facility] [address] [id number], [place] [id number] October, Benign essential hypertension I10 ; Morb id obesity E66.01 and BMI 45.0-49.9, adult Z68.[address] [facility] [address] [id number], [place] [id number] Sep, [facility] [address] [address] [id number], [place] [id number] Sep, [facility] [address] [id number], [place] [id number] Sep, [address] [id number], [place] [id number] Sep, Hospital discharge follow-up Z09 ; Aller gic rhinitis, unspecified seasonality, unspecified trigger J30.9 and Shortness of breath R06.[address] [id number], [place] [id number] Sep, Recurrent major depressive disorder, in partial remission F33.[address] [id number], [place] [id number] Aug, Irritable mood R45.4 [place] [id number] [place] [address] Aug, [address] [id number], [place] [id number] Jul, Benign essential hypertension I10 ; Robert a R60.9 and Impacted cerumen of left ear H61.22 [place] [address] [place] [id number] [address] [place] [phone] 14 Jul, 2017 Major depression F32.9 ; Rec urrent major depressive disorder, in partial remission F33.41 and Anxiety F41.9 [place] [address] [place] [address] Jun, Major depression F32.9 ; Rec urrent major depressive disorder, in partial remission F33.41 and Anxiety F41.[address] [id number], [place] [id number] Jun, Major depression F32.9 ; Morbid obesity E66.01 ; Irritable mood R45.4 ; Hand weakness R29.898 and Vitamin D deficiency E55.[id number] [place] [address] [id number] Jun, [facility] [address] [id number], [place] [id number] May, Major depression F32.9 [facility] [address] [facility] [id number] [address] [place] [address] May, Major depression F32.9 [facility] [address] [id number], [place] [id number] May, BMI 50.0-59.9, adult Z68.43 ; Major depr ession F32.9 ; Anxiety F41.9 ; Hypertrophic toenail L60.2 and Pain of left great toe M79.675 [facility] [address] [id number], [place] [id number] May, Recurrent major depressive disorder, in partial remission F33.41 [facility] [address] [facility] [id number] [address] [place] [phone] Apr, [facility] [address] [id number], [place] [id number] Apr, [facility] [address] [facility] [id number] [address] [place] [address] Apr, Major depression F32.9 [facility] [address] [id number], [place] [id number] Apr, Severe episode of recurrent major depres sive disorder, without psychotic features F33.2 ; Anxiety F41.9 and Insomnia G47.00 [facility] [address] [id number], [place] [id number] Apr, [facility] [address] [facility] [id number] [address] [place] [address] Apr, [facility] [address] [id number], [place] [id number] Apr, [facility] [address] [id number], [place] [id number] Mar, [facility] [address] [address] [id number], [place] [id number] Mar, Allergic conjunctivitis of both eyes H10 .13 [facility] [address] [facility] [id number] [address] [place] [address] Mar, Major depression F32.9 [facility] [address] [id number], [place] [id number] Mar, Metabolic syndrome E88.81 ; History of g astric bypass Z98.890 ; Benign essential hypertension I10 ; Allergic conjunctivitis of both eyes H10.13 and Morbid obesity E66.01 [facility] [address] [facility] [id number] [address] [place] [address] Mar, Major depression F32.9 [facility] [address] [id number], [place] [id number] Feb, [facility] [address] [facility] [id number] [address] [place] [address] Feb, Major depression F32.9 [facility] [id number] [place] [address] [id number] Feb, Subacute maxillary sinusitis J01.00 and Bronchitis J40 [facility] [address] [facility] [id number] [address] [place] [phone] 06 Feb, 2017 Major depressive disorder, r ecurrent, moderate F33.1 [facility] [address] [id number], [place] [id number] Jan, [facility] [address] [id number], [place] [id number] Jan, Acute non-recurrent maxillary sinusitis J01.00 and Skin tag L91.8 [facility] [address] [id number], [place] [id number] Jan, Cough R05 and Sinus congestion R09.81 [facility] [address] [id number], [place] [id number] Jan, [facility] [address] [id number], [place] [id number] Jan, Benign essential hypertension I10 ; Hist ory of gastric bypass Z98.890 and Nausea and vomiting in adult R11.2 [place] [address] [place] [id number] [address] [place] [address] Jan, Major depressive disorder, r ecurrent, moderate F33.1 [place] [address] [place] [id number] [address] [place] [address] Dec, Insomnia G47.00 ; Recurrent major depressive disorder, in partial remission F33.41 and Morbid obesity E66.[address] [id number], [place] [id number] Dec, [address] [id number] [place] [address] [id number] Dec, Chronic bacterial conjunctivitis of left eye H10.[address] [id number], [place] [id number] Nov, [address] [id number], [place] [id number] Nov, Dental examination Z01.[address] [id number], [place] [id number] Nov, Benign essential hypertension I10 ; Hist ory of gastric bypass Z98.890 and Nausea and vomiting in adult R11.2 [place] [address] [place] [id number] [address] [place] [address] Nov, Major depressive disorder, r ecurrent, moderate F33.1 ; Generalized anxiety disorder F41.1 and Insomnia due to other mental disorder F51.05 [place] [address] [place] [id number] [address] [place] [phone] Nov, Recurrent major depressive d isorder, in partial remission F33.41 ; Insomnia G47.00 and Morbid obesity E66.01 [facility] [address] [id number] [place] K[place]ha S [id number] October, Abscess of left arm L02.414 [place] [address] [facility] [id number] [address] [place] [address] October, Morbid obesity E66.01 ; Lida r depression F32.9 and Recurrent major depressive disorder, in partial remission F33.[address] [id number], [place] [id number] Sep, Benign essential hypertension I10 ; Morb id obesity E66.01 ; S/P gastric bypass Z98.84 ; Abscess L02.91 and Chronic bacterial conjunctivitis of left eye H10.[address] [id number], [place] [id number] Sep, Dental examination Z01.20 [place] [address] [facility] [id number] [address] [place] [address] Sep, Morbid obesity E66.01 ; Lida r depression F32.9 and Recurrent major depressive disorder, in partial remission F33.41 [place] [address] [facility] [id number] [address] [place] [id number] Jul, [place] [address] [address] [facility] [id number] [address] [place] [id number] Jul, Major depressive disorder, r ecurrent, moderate F33.1 [place] [address] [address] [facility] [id number] [address] [place] [id number] Jul, Major depressive disorder, r ecurrent, moderate F33.1 and Generalized anxiety disorder F41.[address] [id number] [id number] Jul, Cough R05 [place] [address] [address] [facility] [id number] [address] [place] [phone] 16 Jul, 2016 Morbid obesity E66.01 ; Lida r depression F32.9 and Recurrent major depressive disorder, in partial remission F33.[address] [id number][place] [id number] Jul, [facility] [address] [id number], [place] [id number] Jul, [facility] [address] [id number], [place] [id number] Jul, Gastroenteritis K52.9 and Cough R[address] [id number][place] [id number] Jun, Acute bacterial conjunctivitis of left e ye H10.32 [place] [address] [address] [facility] [id number] [address] [place] [address] Jun, [place] [address] [address] Jun, Recurrent major depressive d isorder, in partial remission F33.41 [place] [address] [address] [place] [id number] [address] [place] [address] May, Major depression F32.9 and M orbid obesity E66.01 [place] [address] [address] [facility] [id number] [address] [place] [address] May, [facility] [address] [facility] [address] [id number][place] [id number] May, Thrush B37.0 [place] [address] [address] [facility] [id number] [address] [place] [phone] Apr, Major depressive disorder, r ecurrent, moderate F33.1 [place] [address] [address] [facility] [id number] [address] [place] [address] Apr, Insomnia G47.00 ; Major depr ession F32.9 and Recurrent major depressive disorder, in partial remission F33.41 [place] [address] [address] [facility] [id number] [address] [place] [address] Apr, [place] [address] [address] [facility] [id number] [address] [place] [phone] 02 Apr, 2016 Major depression F32.9 and R ecurrent major depressive disorder, in partial remission F33.41 [facility] [address] [id number], [place] [id number] Mar, Benign essential hypertension I10 ; Morb id obesity E66.01 ; Impacted cerumen of both ears H61.23 ; Laceration of finger of right hand, initial encounter S61.219A and Encounter for immunization Z23 [facility] [address] [facility] [id number] [address] [place] [phone] 17 Mar, 2016 [facility] [address] [facility] [id number] [address] [place] [phone] 13 Mar, 2016 [facility] [address] [facility] [id number] [address] [place] [phone] Mar, [facility] [address] [id number], [place] [id number] Feb, Nausea R11.0 ; Blood in the stool K92.1 and Benign essential hypertension I10 [facility] [address] [facility] [id number] [address] [place] [phone] Feb, Major depression F32.9 and R ecurrent major depressive disorder, in partial remission F33.41 [facility] [address] [id number], [place] [id number] Feb, [facility] [address] [id number], [place] [id number] Feb, Recurrent major depressive disorder, in partial remission F33.41 [facility] [address] [id number], [place] [id number] Jan, [facility] [address] [id number], [place] [id number] Jan, Benign essential hypertension I10 ; Robert a R60.9 and Hyperlipidemia, unspecified hyperlipidemia type E78.5 [facility] [address] [id number], [place] [id number] Jan, Recurrent major depressive disorder, in partial remission F33.41 [facility] [address] [id number] [place] [id number] Jan, [facility] [address] [id number], [place] [id number] Jan, [facility] [address] [id number], [place] [id number] Jan, [facility] [address] [facility] [id number] [address] [place] [phone] Jan, [facility] [address] [facility] [id number] [address] [place] [phone] Dec, [facility] [address] [facility] [id number] [address] [place] [phone] Nov, [facility] [address] [facility] [id number] [address] [place] [address] Nov, Major depression F32.9 [facility] [address] [facility] [id number] [address] [place] [phone] Nov, [facility] [address] [facility] [id number] [address] [place] [phone] Nov, [facility] [address] [facility] [id number] [address] [place] [address] Nov, Major depressive disorder, r ecurrent episode, mild F33.0 and Anxiety F41.9 [facility] [place] [address] [facility] [address] [id number], [place] [id number] Nov, [facility] [id number] [place] [id number] October, Left elbow pain M25.522 and Other season al allergic rhinitis J30.2 [facility] [address] [facility] [id number], [place] [id number] October, [facility] [address] [facility] [id number] [address] [place] [phone] October, Major depressive disorder, r ecurrent, moderate F33.1 [facility] [address] [facility] [id number] [address] [place] [phone] October, Major depression F32.9 [facility] [address] [facility] [id number] [address] [place] [address] Sep, [place] or callus L84 and Onych omycosis B35.1 [facility] [address] [facility] [id number] [address] [place] [address] Sep, Major depressive disorder, r ecurrent, moderate F33.1 [facility] [address] [facility] [id number] [address] [place] [address] Sep, Major depression F32.9 [facility] [address] [facility] [id number] [address] [place] [phone] Sep, Moderate episode of recurren t major depressive disorder F33.1 [facility] [address] [id number], [place] [id number] Sep, Muscle strain T14.8 [facility] [address] [facility] [id number] [address] [place] [phone] Aug, Major depression F32.9 [facility] [address] [facility] [id number] [address] [place] [address] Aug, Major depression F32.9 [facility] [address] [facility] [id number] [address] [place] [address] Jul, Morbid obesity E66.01 and Ma cora depression F32.9 [facility] [address] [facility] [id number] [address] [place] [address] Jul, Depression, major, recurrent , moderate F33.1 [facility] [address] [id number], [place] [id number] Jul, [facility] [address] [facility] [id number] [address] [place] [address] Jul, [facility] [address] [facility] [id number] [address] [place] [phone] 16 Feb, 2016 Major depression F32.9 and M orbid obesity E66.[address] [id number], [place] [id number] 11 Jul, 2015 Type II diabetes mellitus E11.9 ; Callus of foot L84 ; Benign essential hypertension I10 and Renal insufficiency N28.9 [place] [address] [address] [facility] [id number] [address] [place] [phone] 09 Jul, 2015 Depression, major, recurrent , moderate F33.1 [place] [address] [address] [facility] [id number] [address] [place] [phone] Jul, Major depression F32.9 [place] [address] [address] [facility] [id number] [address] [place] [address] Jul, [place] [address] [address] [facility] [id number] [address] [place] [phone] Jun, Major depression F32.9 [place] [address] [address] [facility] [id number] [address] [place] [address] Jun, Major depressive disorder, r ecurrent, moderate F33.1 [place] [address] [address] [facility] [id number] [address] [place] [address] Jun, [place] [address] [address] [facility] [id number] [address] [place] [phone] Jun, Major depressive disorder, r ecurrent, moderate F33.1 and Major depression F32.[address] [id number], [place] [id number] Jun, Type II diabetes mellitus E11.9 [place] [address] [address] [facility] [id number] [address] [place] [address] Jun, Depression, major, recurrent , moderate F33.1 [place] [address] [address] [facility] [id number] [address] [place] [address] May, Major depressive disorder, r ecurrent, moderate F33.1 [place] [address] [address] [facility] [id number] [address] [place] [phone] May, [facility] [address] [id number], [place] [id number] May, Edema R60.9 [facility] [address] [facility] [id number] [address] [place] [address] May, Insomnia G47.00 and Major de pression F32.[id number] [place] [address] [id number] May, Morbid obesity E66.01 ; Edema R60.9 ; Sh ortness of breath R06.02 ; Benign essential hypertension I10 and Renal insufficiency N28.[id number] [place] [address] [id number] May, Hyperlipemia 272.4 and Renal insufficien cy N28.9 [place] [address] [address] [facility] [id number] [address] [place] [address] Apr, Major depression F32.9 [facility] [address] [facility] [id number] [address] [place] [address] Apr, [facility] [address] [facility] [id number] [address] [place] [phone] Apr, Major depressive disorder, r ecurrent, moderate F33.[id number] [place] [address] [id number] Apr, Type II diabetes mellitus E11.9 ; Benign essential hypertension I10 ; Edema R60.9 and Renal insufficiency N28.9 [facility] [address] [facility] [id number] [address] [place] [phone] Mar, Major depressive disorder, r ecurrent, moderate F33.1 [facility] [address] [facility] [id number] [address] [place] [address] Mar, [facility] [address] [facility] [id number] [address] [place] [phone] Mar, Major depression F32.[address] [place] [address] [id number], [place] [id number] Mar, Morbid obesity E66.01 ; Benign essential hypertension I10 and Type II diabetes mellitus E11.9 [facility] [address] [place] [id number] [address] [place] [phone] Feb, Major depressive disorder, r ecurrent, moderate F33.1 [place] [address] [address] [place] [id number] [address] [place] [address] Feb, Major depressive disorder, r ecurrent episode, in partial or unspecified remission 296.35 ; Anxiety state, unspecified 300.00 and Morbid obesity 278.01 [place] [id number] [address] [place] [address] Feb, [address] [id number] [place] [address] [id number] 16 Feb, 2015 Vomiting 787.03 and Viral syndrome 079.9 9 [place] [id number] [address] [place] [address] Feb, Major depression, recurrent 296.30 ; Generalized anxiety disorder 300.02 and No condition on Garland II V71.[address] [id number] [place] [address] [id number] Feb, Skin tag 701.9 [place] [id number] [address] [place] [address] Feb, [place] [id number] [address] [place] [address] Jan, Depression, major, recurrent , moderate 296.[address] [id number] [place] [address] [id number] Jan, Nausea and vomiting 787.01 ; Rib pain on right side 786.50 and Fall on or from sidewalk curb E880.1 [facility] [address] [facility] [id number] [address] [place] [address] Jan, [place] [id number] [address] [place] [address] Jan, Major depressive disorder, r ecurrent episode, in partial or unspecified remission 296.35 and Anxiety state, unspecified 300.00 [facility] [place] Evita [facility] [id number][place] [id number] Jan, [address] [id number] [address] [place] [address] Jan, Depression, major, recurrent , moderate 296.[address] [id number] [address] [place] [address] Jan, Major depression, recurrent 296.30 ; No condition on Garland II V71.09 and No condition on axis III V71.09 [facility] [place] [address] [place] [address] [id number], [place] [id number] Jan, Drug-induced nausea and vomiting 787.01 [place] [id number] [address] [place] [address] Jan, Depression, major, recurrent , moderate 296.32 [place] [id number] [address] [place] [address] Dec, Depression, major, recurrent , moderate 296.32 [address] [id number], [place] [id number] Dec, Morbid obesity 278.01 ; Metabolic syndro me 277.7 ; Hyperlipemia 272.4 ; Benign essential hypertension 401.1 ; Dietary counseling V65.3 ; Exercise counseling V65.41 and Inflamed skin tag 701.[address] [id number] [address] [place] [address] Dec, Depression, major, recurrent , moderate 296.32 [place] [id number] [address] [place] [address] Dec, [address] [id number] [address] [place] [address] Dec, Major depression, recurrent 296.30 ; Anxiety, generalized 300.02 and No condition on Garland II V71.09 [place] [address] [place] [id number] Dec, Depression, major, recurrent , moderate 296.32 [place] [address] [place] [id number] Dec, Major depressive disorder, r ecurrent episode, moderate 296.32 [place] [address] [place] [address] Dec, Depression, major, recurrent , moderate 296.32 [place] [address] Dec, Depression, major, recurrent , moderate 296.32 [place] [address] [place] [address] Dec, Depression, major, recurrent , moderate 296.32 [place] [address] [place] [address] Dec, Depression, major, recurrent , moderate 296.32 [place] [address] [place] [address] Nov, Depression, major, recurrent , moderate 296.32 [place] [address] [address] Nov, Major depression 296.20 ; So cial phobia 300.23 and No condition on Garland II V71.09 [place] [address] [address] Nov, Depression, major, recurrent , moderate 296.32 [place] [id number] Nov, Major depressive disorder, r ecurrent episode, moderate 296.32 and Generalized anxiety disorder 300.[address] [address] Nov, Depression, major, recurrent , moderate 296.32 [facility] [address] [id number] [address] [place] [phone] 04 Nov, 2014 Depression, major, recurrent , moderate 296.32 [facility] [address] [facility] [id number] [address] [place] [address] October, Generalized anxiety disorder 300.02 ; No condition on Garland II V71.09 and Major depressive disorder, recurrent 296.30 [facility] [address] [id number] [address] [place] [phone] Sep, [facility] [address] [id number] [address] [place] [address] Sep, [facility] [address] [id number] [address] [place] [phone] Aug, [facility] [address] [id number] [address] [place] [id number] Aug, [facility] [address] [id number] [address] [place] [phone] Aug, [facility] [address] [id number] [address] [place] [address] Aug, [facility] [address] [id number] [address] [place] [phone] Aug, [facility] [address] [id number] [address] [place] [phone] Aug, [facility] [address] [id number] [address] [place] [phone] Aug, [facility] [address] [id number] [address] [place] [phone] Aug, [facility] [address] [id number] [address] [place] [address] Aug, [facility] [address] [id number] [address] [place] [phone] Aug, [facility] [address] [id number] [address] [place] [address], [place] [address] 13 Aug, 2014 [facility] [address] [id number] [address] [place] [address], [place] [address] 13 Aug, 2014 [facility] [address] [id number] [address] [place] [address], [place] [address] Aug, [facility] [address] [id number] [address] [place] [address], [place] [address] Aug, [facility] [address] [id number] [address] [place] [address], [place] [address] Aug, [facility] [address] [id number] [address] [place] [address], [place] [address] Aug, [facility] [address] [id number] [address] [place] [address], [place] [address] Aug, [facility] [address] [id number] [address] [place] [address], [place] [address] Aug, [facility] [address] [id number] [address] [place] [address], [place] [address] Jul, [facility] [address] [id number] [address] [place] [address], [place] [address] Jul, [facility] [address] [id number] [address] [place] [address], [place] [address] Jul, [facility] [address] [id number] [address] [place] [address], [place] [address] Jul, [facility] [address] [id number] [address] [place] [address], [place] [address] Jul, [facility] [address] [id number] [address] [place] [address], [place] [address] Jul, [facility] [address] [id number] [address] [place] [address], [place] [address] Jun, [facility] [address] [id number] [address] [place] [address], [place] [address] Jun, [facility] [address] [id number] [address] [place] [address], [place] [address] Jun, [facility] [address] [id number] [address] [place] [address], [place] [address] Jun, [facility] [address] [id number] [address] [place] [address], [place] [address] Jun, [facility] [address] [id number] [address] [place] [address], [place] [address] Jun, [facility] [address] [id number] [address] [place] [address], [place] [address] Jun, [facility] [address] [id number] [address] [place] [address], [place] [address] Jun, [facility] [address] [id number] [address] [place] [address], [place] [address] Jun, [facility] [address] [id number] [address] [place] [address], [place] [address] Jun, [facility] [address] [id number] [address] [place] [phone] Jun, [facility] [address] [id number] [address] [place] [address] Jun, [facility] [place] [address] [id number] [place], [facility] [id number] Jun, [facility] [address] [id number] [address] [place] [phone] Jun, [facility] [address] [id number] [address] [place] [address] Jun, [facility] [address] [id number] [address] [place] [address] Jun, [facility] [address] [id number] [address] [place] [phone] May, [facility] [address] [id number] [address] [place] [id number] May, [facility] [address] [id number] [address] [place] [address], [place] [address] May, [facility] [address] [id number] [address] [place] [address], [place] [address] May, [facility] [address] [id number] [address] [place] [address], [place] [address] Apr, [facility] [address] [id number] [address] [place] [address], [place] [address] Apr, [facility] [address] [id number] [address] [place] [address], [place] [address] Apr, [facility] [address] [id number] [address] [place] [address], [place] [address] Apr, [facility] [address] [id number] [address] [place] [address], [place] [address] Apr, [facility] [address] [id number] [address] [place] [address], [place] [address] Apr, [facility] [address] [id number] [address] [place] [address], [place] [address] Apr, [facility] [address] [id number] [address] [place] [address], [place] [address] Apr, [facility] [address] [id number] [address] [place] [address], [place] [address] Apr, [facility] [address] [id number] [address] [place] [address], [place] [address] Apr, [facility] [address] [id number] [address] [place] [address], [place] [address] Apr, [facility] [address] [id number] [address] [place] [address], [place] [address] Apr, [facility] [address] [id number] [address] [place] [address], [place] [address] Apr, [facility] [address] [id number] [address] [place] [address], [place] [address] Apr, [facility] [address] [id number] [address] [place] [address], [place] [address] Apr, [facility] [address] [id number] [address] [place] [address], [place] [address] Apr, [facility] [address] [id number] [address] [place] [address], [place] [address] Apr, [facility] [address] [id number] [address] [place] [address], [place] [address] Apr, [facility] [address] [id number] [address] [place] [address], [place] [address] Apr, [facility] [address] [id number] [address] [place] [address], [place] [address] Apr, [facility] [address] [id number] [address] [place] [address], [place] [address] Mar, [facility] [address] [id number] [address] [place] [address], [place] [address] Mar, [facility] [address] [id number] [address] [place] [address], [place] [address] Mar, [facility] [address] [id number] [address] [place] [address], [place] [address] Mar, [facility] [address] [id number] [address] [place] [address], [place] [address] Mar, [facility] [address] [id number] [address] [place] [address], [place] [address] Mar, [facility] [address] [address] [id number] [address] [place] [address], [place] [address] Mar, [facility] [address] [id number] [address] [place] [address], [place] [address] Mar, [facility] [address] [id number] [address] [place] [address], [place] [address] Mar, [facility] [address] [id number] [facility] [place] [address] Mar, [facility] [address] [id number] [address] [place] [address], [place] [address] Feb, [facility] [address] [id number] [address] [place] [address], [place] [address] Feb, [facility] [address] [id number] [address] [place] [address], [place] [address] Feb, [facility] [address] [id number] [address] [place] [address], [place] [address] Feb, [facility] [address] [id number] [address] [place] [address], [place] [address] Jan, [facility] [address] [id number] [address] [place] [address], [place] [address] Jan, [facility] [address] [id number] [address] [place] [address], [place] [address] Jan, [facility] [address] [id number] [address] [place] [address], [place] [address] Jan, [facility] [address] [id number] [address] [place] [address], [place] [address] Jan, [facility] [address] [id number] [address] [place] [address], [place] [address] Jan, [facility] [address] [id number] [address] [place] [address], [place] [address] Dec, [facility] [address] [id number] [address] [place] [address], [place] [address] Dec, [facility] [address] [id number] [address] [place] [address], [place] [address] Nov, [facility] [address] [id number] [address] [place] [address], [place] [address] Nov, [facility] [address] [id number] [facility] [place] [address] Nov, [facility] [address] [id number] [address] [place] [address], [place] [address] Nov, [facility] [address] [id number] [address] [place] [address], [place] [address] Nov, [facility] [address] [id number] [address] [place] [address], [place] [address] Nov, [facility] [address] [id number] [address] [place] [address], [place] [address] Sep, [facility] [address] [id number] [address] [place] [address], [place] [address] Sep, [facility] [address] [id number] [address] [place] [address], [place] [address] Sep, [facility] [address] [id number] [address] [place] [address], [place] [address] Sep, [facility] [address] [id number] [address] [place] [address], [place] [address] Aug, [facility] [address] [id number] [address] [place] [address], [place] [address] Aug, [facility] [address] [id number] [address] [place] [address], [place] [address] Jul, [facility] [address] [id number] [address] [place] [address], [place] [address] Jul, [facility] [address] [id number] [address] [place] [address], [place] [address] Jun, [facility] [address] [id number] [address] [place] [address], [place] [address] Jun, [facility] [address] [id number] [address] [place] [address], [place] [address] Jun, [facility] [address] [id number] [address] [place] [address], [place] [address] Jun, [facility] [address] [id number] [address] [place] [address], [place] [address] May, [facility] [address] [id number] [address] [place] [address], [place] [address] May, [facility] [address] [id number] [address] [place] [address], [place] [address] May, [facility] [address] [id number] [address] [place] [address], [place] [address] May, [facility] [address] [id number] [address] [place] [address], [place] [address] May, [facility] [address] [id number] [address] [place] [address], [place] [address] May, [facility] [address] [id number] [address] [place] [address], [place] [address] Apr, [facility] [address] [id number] [address] [place] [address], [place] [address] Apr, [facility] [address] [id number] [address] [place] [address], [place] [address] Apr, [facility] [address] [id number] [address] [place] [address], [place] [address] Apr, [facility] [address] [id number] [address] [place] [address], [place] [address] Mar, [facility] [address] [id number] [address] [place] [address] Mar, [facility] [address] [id number] [address] [place] [address], [place] [address] Mar, [facility] [address] [id number] [address] [place] [address], [place] [address] Mar, [facility] [address] [id number] [address] [place] [address] Feb, [facility] [address] [id number] [id number] Jan, [facility] [address] [id number] [address] [place] [id number] Jan, [facility] [address] [id number] [address] [place] [id number] Dec, [facility] [address] [id number] [address] [place] [id number] Dec, [facility] [address] [id number] [address] [place] [id number] Dec, [facility] [address] [id number] [place] [id number] Dec, [facility] [address] [id number] [address] [place] [id number] Nov, [facility] [address] [id number] [address] [place] [id number] Nov, [facility] [address] [id number] [address] [place] [id number] Nov, [facility] [address] [id number] [address] [place] [id number] Nov, [facility] [address] [id number] [address] [place] [id number] Nov, [facility] [address] [id number] [address] [place] [id number] October, [facility] [address] [id number] [address] [place] [id number] October, [facility] [address] [id number] [address] [place] [id number] Aug, [facility] [address] [id number] [address] [place] [id number] Nov, IMMUNIZATIONS No Known Immunizations SOCIAL HISTORY Never Assessed REASON FOR VISIT stomach Bloating for 2 months Mino MELLO PLAN OF CARE Activity Details Follow Up prn Reason: VITAL SIGNS Height 71.5 in 2018-09-01 Weight 345.4 lbs 2018-09-01 Temperature 97.7 degrees Fahrenheit 2018-09-01 Heart Rate 60 bpm 2018-09-01 Respiratory Rate 18 2018-09-01 BMI 47.50 kg/m2 2018-09-01 Blood pressure systolic 122 mmHg 2018-09-01 Blood pressure diastolic 72 mmHg 2018-09-01 MEDICATIONS Medication Instructions Dosage Frequency Start Date End Date Duration S tatus Simethicone 80 MG Orally 3 times a day 2 tablet after meal s and at bedtime as needed 8h Aug, Active Bactrim DS 800-160 mg Orally Twice a day 1 tablet 12h Aug, 10 day(s) Active BusPIRone HCl 15 mg Orally three times a day for anxiety 1 tablet Active Centrum - Active Triamcinolone Acetonide 0.1 % Externally Twice a day 1 appli cation to affected area 12h Mar, 7 days Active Viibryd 40 mg Orally Once a day 1 tablet with food 24h 11 May, 2017 Active Lisinopril 40 mg Orally Once a day 1 tablet Once a day Orally 24h 90 Active Vitamin D-3 1000 UNIT Orally Once a day 3 capsule 24h Active Lasix 20 mg Orally Once a day as needed for swelling 1 tablet 90 days Active Zofran 8 MG Orally Once a day 1 tablet 24h A ctive Naproxen 500 mg Orally 2 times a day 1 tablet with food or milk as ne eded 12h 30 Active Lamictal 200 mg Orally in the morning, 1/2 tablet in the evening. 1 tablet Jun, Active Flovent HFA 110 mcg/act inhalation once per day 1-3 Puffs 1 time pe r day October, 0 Active Omeprazole 40 MG TAKE 1 CAPSULE BY MOUTH ONCE DAILY 90 Active Furosemide 20 MG TAKE 1 TABLET BY MOUTH DAILY NEEDED FOR SWEL LING Active Montelukast Sodium 10 MG TAKE 1 TABLET BY MOUTH ONCE DAILY 90 Active Atenolol 100 mg Orally Once a day 1 tablet Once a day Orally 24h 90 Active Baclofen 10 mg Orally Three times a day 1/2 tablet 8h Active Chlorhexidine Gluconate 0.12 % Mouth/Throat 2 times a day 15ml 12h Aug, 14 days Active Cetirizine HCl 10 MG TAKE 1 TABLET BY MOUTH EVERY DAY 90 Active Flonase 50 mcg/act nasally once per day 1 spray (50 mcg) in each nostril by intranasal route 2 times per day Nov, Active Trazodone HCl 100 mg Orally Once a day- bedtime 1 tablet Active Ketoconazole 2 % Externally Once a day 1 application to affected area 24 h Active Bactrim DS 800-160 MG Orally Twice a day 1 tablet 12h Active RESULTS No Results PROCEDURES No Known procedures INSTRUCTIONS MEDICATIONS ADMINISTERED No Known Medications MEDICAL (GENERAL) HISTORY Type Description Date Medical History sleep apnea Medical History hypertension Medical History 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 Medical History H yplori- dx 12/2014 Medical History Echo 05/2015- Stage II diast olic dysfunction, LV hypertrophy, EF 60% Medical History Major Depression- Prozac, We llbutrin, Trintellix, Celexa, Lexapro, Paxil, Effexor, Cymbalta, Abilify Medical History Insomnia Medical History chronic renal insufficiency Medical History Obsessive Compulsive Disorder with Perse veration Surgical History EGD- Esophagus stretching- 2014 Surgical History gastric sleeve 03/2016 Hospitalization History gastric sleeve Hospitalization History [facility] Trouble with left shoulder blade 08/2017
--- OUTSIDE RECORDS SUMMARY | 2019-11-29 09:04 | XMS REPORT ---
Author Author Curt DIAZ Organization [facility] Address [address] [place] [address] Care Team Providers Care Salesperson [employer] Name Role Phone JOE CHRIS Unavailable PROBLEMS Type Condition ICD9-CM Code ODU26-AA Code Onset Dates Condition S tatus SNOMED Code Problem Insomnia G47.00 Active 209906634 Problem Hyperlipemia E78.5 Active 0343303 4 Problem Morbid obesity E66.01 Active 10151 6002 Problem Benign essential hypertension I10 Active 1628089 Problem Renal insufficiency N28.9 Active 113297251 Problem Edema R60.9 Active 748972544 Problem Severe episode of recurrent major depressive disorder, without psychotic features F33.2 Active 22284750 Problem Metabolic syndrome E88.81 Active 2 81206027 Problem DANIELA (generalized anxiety disorder) F41.1 Active 24019444 Problem BMI 45.0-49.9, adult Z68.42 Active 285763589 Problem Sciatica, right side M54.31 Active 035411829645685 Problem Hammer toe of second toe of right foot M20.41 Active 531164035 Problem Mixed obsessional thoughts and acts F42.2 Active 50087261 Problem Hammer toe of right foot M20.41 Activ e 484451233 Problem Vitamin D deficiency E55.9 Active 25995100 Problem Chronic fatigue R53.82 Active 8422 9001 Problem Other chronic pain G89.29 Active 8 2048068 Problem Borderline personality disorder F60.3 Active 62972228 Problem Callous ulcer, limited to breakdown of skin L98.49 1 Active ALLERGIES No Information ENCOUNTERS Encounter Location Date Diagnosis [facility] [address] [facility] [id number] [id number] Jun, [facility] [address] [facility] [id number] [place] [address] Apr, [facility] [address] [facility] [id number] [address] [id number] Mar, [facility] [address] [facility] [id number] [address] [place] [phone] Mar, [facility] [address] [facility] [id number] [address] [place] [phone] Mar, [facility] [address] [facility] [id number] [address] [address] [id number] Feb, Dental examination Z01.20 an d Periodontitis K05.30 [facility] [address] [facility] [id number] [address] [place] [phone] Feb, [facility] [place] [address] [id number][place] [id number] Feb, Acute pain of right knee M25.561 ; Fall, initial encounter W19.XXXA ; Benign essential hypertension I10 and Edema R60.9 [facility] [address] [place] [id number] [address] [place] [phone] Feb, [facility] [address] [place] [id number] [address] [place] [phone] Feb, DANIELA (generalized anxiety dis order) F41.1 ; Severe episode of recurrent major depressive disorder, without psychotic features F33.2 ; Mixed obsessional thoughts and acts F42.2 and Borderline personality disorder F60.3 [facility] [address] [place] [id number] [address] [place] [phone] Feb, [facility] [address] [facility] [id number] [address] [place] [phone] Jan, [facility] [address] [facility] [id number] [address] [place] [phone] Jan, [facility] [address] [place] [id number] [address] [place] [phone] Jan, [facility] [place] [address] [id number][place] [id number] Jan, Callus of heel L84 ; Fissure in skin R23 .4 and Hammer toe of second toe of right foot M20.41 [facility] [address] [id number] [id number] Jan, [facility] [address] [facility] [id number] [address] [place] [phone] Jan, [facility] [address] [facility] [id number] [address] [place] [phone] Jan, [facility] [address] [facility] [id number] [address] [place] [phone] Jan, Severe episode of recurrent major depressive disorder, without psychotic features F33.2 ; DANIELA (generalized anxiety disorder) F41.1 ; Mixed obsessional thoughts and acts F42.2 and Borderline personality disorder F60.3 [place] [address] [facility] [id number] [address] [place] [phone] Jan, [id number] [place] [address] [id number] Jan, Benign essential hypertension I10 [address] [id number] [place] [address] [id number] Dec, Callous ulcer, limited to breakdown of s kin L98.491 and Morbid obesity E66.01 [facility] [address] [facility] [id number] [address] [place] [phone] Dec, [facility] [address] [facility] [id number] [address] [place] [phone] Dec, [facility] [address] [facility] [id number] [address] [place] [phone] Dec, [facility] [address] [place] [id number] [address] [place] [phone] Dec, [facility] [address] [facility] [id number] [address] [place] [phone] Dec, Severe episode of recurrent major depressive disorder, without psychotic features F33.2 [facility] [address] [place] [id number] [address] [place] [phone] Dec, DANIELA (generalized anxiety dis order) F41.1 ; Severe episode of recurrent major depressive disorder, without psychotic features F33.2 ; Mixed obsessional thoughts and acts F42.2 and 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 [facility] [place] [address] [facility] [id number], [place] [id number] Dec, Morbid obesity E66.01 [facility] [address] [facility] [id number] [address] [place] [phone] Dec, [facility] [address] [facility] [id number] [address] [place] [phone] Dec, [address] [phone] Nov, [facility] [place] [address] [facility] [id number], [place] [id number] Nov, [facility] [address] [facility] [id number] [address] [place] [phone] Nov, [facility] [address] [facility] [id number] [address] [place] [phone] Nov, [facility] [address] [facility] [id number] [address] [place] [phone] Nov, DANIELA (generalized anxiety dis order) F41.1 ; Severe episode of recurrent major depressive disorder, without psychotic features F33.2 ; Mixed obsessional thoughts and acts F42.2 and 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 [facility] [address] [facility] [id number], [place] [id number] Nov, Morbid obesity E66.01 [facility] [address] [facility] [id number] [address] [place] [phone] Nov, [facility] [address] [facility] [id number] [address] [place] [phone] Nov, DANIELA (generalized anxiety dis order) F41.1 ; Mixed obsessional thoughts and acts F42.2 ; Severe episode of recurrent major depressive disorder, without psychotic features F33.2 and 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 [facility] Jama [facility] [id number], [place] [id number] October, Morbid obesity E66.01 [facility] Jama [facility] [id number], [place] [id number] October, Benign essential hypertension I10 and Mo rbid obesity E66.01 [facility] [id number] [place] [address] [id number] October, [facility] [address] [place] [id number] [address] [place] [phone] October, Severe episode of recurrent major depressive disorder, without psychotic features F33.2 [facility] Jama [facility] [id number], [place] [id number] October, Morbid obesity E66.01 [facility] [address]ender[address] [place] [address] [place] [id number] [place] [address] [id number] October, [facility] [address] [place] [id number] [address] [place] [phone] October, Severe episode of recurrent major depressive disorder, without psychotic features F33.2 ; DANIELA (generalized anxiety disorder) F41.1 ; Mixed obsessional thoughts and acts F42.2 and 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 [facility] [address]ender[address] [place] [address] AVE [id number] [place] [address] [id number] October, Morbid obesity E66.01 [facility] [address] [facility] [id number] [address] [place] [address] [phone] Sep, Dental examination Z01.20 [facility] [place] Y[address]ia[address] [place] [address] A[id number] [place] [address] [id number] Sep, [facility] [address] [place] [id number] [address] [place] [phone] Sep, Sore in mouth K13.79 and Mor bid obesity E66.01 [facility] [address] [place] [id number] [address] [place] [phone] Sep, Dental examination Z01.20 [facility] [address] [facility] [id number] [place] [address] Sep, Anxiety disorder, unspecifie d F41.9 [facility] [address] [id number], [place] [id number] Sep, Mouth ulcer K12.[address] [id number], [place] [id number] Sep, Morbid obesity E66.01 [facility] [place] [address] [id number], [place] [id number] Sep, Allergic rhinitis, unspecified seasonali ty, unspecified trigger J30.9 and Shortness of breath R06.02 [facility] [address] [id number], [place] [id number] Sep, 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 [facility] [place] [address] [id number], [place] [id number] Aug, Mouth abscess K12.2 ; Mouth ulcer K12.1 ; Bloating R14.0 and Morbid obesity E66.01 [facility] [address] [place] [address] [id number], [place] [id number] Aug, [facility] [address] [id number], [place] [id number] Aug, [facility] [place] [address] [id number], [place] [id number] Jul, Major depressive disorder, recurrent, mo derate F33.1 ; Abscess of arm, left L02.414 ; BMI 45.0-49.9, adult Z68.42 and Morbid obesity E66.01 [facility] [address] [address] [id number], [place] [id number] Jul, [facility] [address] [address] [id number], [place] [id number] Jul, [facility] [address] [address] [id number], [place] [id number] Jun, Pain in right knee M25.561 and Other chr onic pain G89.29 [facility] [address] [address] [id number], [place] [id number] Jun, Benign essential hypertension I10 ; BMI 45.0-49.9, adult Z68.42 ; Morbid obesity E66.01 ; Vitamin D deficiency E55.9 ; Insomnia G47.00 ; 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 ; Edema R60.9 ; Recurrent major depressive disorder, in partial remission F33.41 ; Chronic fatigue R53.82 ; Acute pain of right knee M25.561 ; Metabolic syndrome E88.81 and Irritable mood R45.4 [facility] [address] [facility] [id number] [address] [place] [phone] Jun, [facility] [address] [id number], [place] [id number] Jun, Irritable mood R45.4 [facility] [address] [facility] [id number] [address] [place] [phone] May, [facility] [address] [facility] [id number] [address] [place] [phone] 24 May, 2018 [facility] [address] [facility] [id number] [address] [place] [phone] 13 May, 2018 Recurrent major depressive d isorder, in partial remission F33.41 ; Mixed obsessional thoughts and acts F42.2 ; 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 and BMI 45.0-49.9, adult Z68.42 [facility] [address] [facility] [id number] [address] [place] [phone] Apr, [facility] [address] [facility] [id number] [address] [place] [phone] Apr, [facility] [address] [facility] [id number] [address] [place] [phone] 14 Apr, 2018 [facility] [address] [facility] [id number] [address] [place] [phone] Apr, [facility] [address] [facility] [id number] [address] [place] [phone] Mar, Mixed obsessional thoughts a nd acts F42.2 ; Recurrent major depressive disorder, in partial remission F33.41 ; DANIELA (generalized anxiety disorder) F41.1 and BMI 45.0-49.9, adult Z68.42 [facility] [address] [address] [id number], [place] [id number] Mar, [facility] [address] [address] [id number], [place] [id number] Mar, BMI 45.0-49.9, adult Z68.42 ; Instabilit y of right knee joint M25.361 and Rash R21 [place] [address] [facility] [id number] [address] [place] [phone] Jan, Recurrent major depressive d isorder, in partial remission F33.41 ; Mixed obsessional thoughts and acts F42.2 and BMI 45.0-49.9, adult Z68.[address] [place] [address] [id number], [place] [id number] Jan, [facility] [place] [address] [id number], [place] [id number] Jan, Benign essential hypertension I10 ; BMI 45.0-49.9, adult Z68.42 ; Metabolic syndrome E88.81 and Allergic rhinitis, unspecified seasonality, unspecified trigger J30.9 [place] [address] [facility] [id number] [address] [place] [phone] Dec, DANIELA (generalized anxiety dis order) F41.1 and Depressive disorder, not elsewhere classified F32.9 [facility] [address] [id number], [place] [id number] Dec, Recurrent major depressive disorder, in partial remission F33.41 [facility] [place] [address] [id number], [place] [id number] Dec, [facility] [place] [address] [id number], [place] [id number] Nov, [facility] [address] [id number], [place] [id number] Nov, Recurrent major depressive disorder, in partial remission F33.41 [facility] [address] [facility] [id number] [address] [place] [phone] Nov, Recurrent major depressive d isorder, in partial remission F33.41 ; Mixed obsessional thoughts and acts F42.2 ; DANIELA (generalized anxiety disorder) F41.1 and BMI 45.0-49.9, adult Z68.42 [facility] [address] [address] [id number], [place] [id number] Nov, [facility] [place] [address] [id number], [place] [id number] Nov, Other conjunctivitis of both eyes H10.89 and Sciatica, right side M54.31 [facility] [address] [address] [id number], [place] [id number] Nov, [facility] [place] [address] [id number], [place] [id number] Nov, [facility] [place] [address] [id number], [place] [id number] October, [facility] [place] [address] [id number], [place] [id number] October, [facility] [address] [facility] [id number] [address] [place] [phone] October, BMI 45.0-49.9, adult Z68.42 ; Mixed obsessional thoughts and acts F42.2 ; Recurrent major depressive disorder, in partial remission F33.41 and DANIELA (generalized anxiety disorder) F41.1 [facility] [address] [address] [id number], [place] [id number] October, Benign essential hypertension I10 ; Morb id obesity E66.01 and BMI 45.0-49.9, adult Z68.[address] [facility] [address] [address] [id number], [place] [id number] Sep, [facility] [address] [id number], [place] [id number] Sep, [facility] [place] [address] [place] [address] AVE [id number], [place] [id number] Sep, [facility] [address] [id number], [place] [id number] Sep, Hospital discharge follow-up Z09 ; Aller gic rhinitis, unspecified seasonality, unspecified trigger J30.9 and Shortness of breath R06.[address] [id number], [place] [id number] Sep, Recurrent major depressive disorder, in partial remission F33.41 [facility] [address] [id number], [place] [id number] Aug, Irritable mood R45.4 [place] [address] [place] [phone] Aug, [facility] [address] [id number], [place] [id number] Jul, Benign essential hypertension I10 ; Robert a R60.9 and Impacted cerumen of left ear H61.22 [place] [address] [place] [id number] [place] [phone] Jul, Major depression F32.9 ; Rec urrent major depressive disorder, in partial remission F33.41 and Anxiety F41.9 [place] [address] [place] [id number] [address] [place] [phone] Jun, Major depression F32.9 ; Rec urrent major depressive disorder, in partial remission F33.41 and Anxiety F41.[address] [id number], [place] [id number] Jun, Major depression F32.9 ; Morbid obesity E66.01 ; Irritable mood R45.4 ; Hand weakness R29.898 and Vitamin D deficiency E55.9 [facility] [address] [id number], [place] [id number] Jun, [facility] [address] [id number], [place] [id number] May, Major depression F32.9 [place] [address] [facility] [id number] [address] [place] [phone] May, Major depression F32.9 [facility] [address] [id number], [place] [id number] May, BMI 50.0-59.9, adult Z68.43 ; Major depr ession F32.9 ; Anxiety F41.9 ; Hypertrophic toenail L60.2 and Pain of left great toe M79.675 [facility] [id number] [place] [address] [id number] May, Recurrent major depressive disorder, in partial remission F33.41 [place] [address] [facility] [id number] [address] [place] [phone] Apr, [facility] [id number] [place] [address] [id number] Apr, [facility] [address] [facility] [id number] [address] [place] [phone] Apr, Major depression F32.9 [facility] [id number] [place] [address] [id number] Apr, Severe episode of recurrent major depres sive disorder, without psychotic features F33.2 ; Anxiety F41.9 and Insomnia G47.00 [facility] [id number] [place] [address] [id number] Apr, [facility] [address] [facility] [id number] [address] [place] [phone] Apr, [facility] [id number] [place] [address] [id number] Apr, [facility] [address] [id number], [place] [id number] Mar, [facility] [address] [id number], [place] [id number] Mar, Allergic conjunctivitis of both eyes H10 .13 [facility] [address] [facility] [id number] [address] [place] [phone] Mar, Major depression F32.9 [facility] [address] [id number], [place] [id number] Mar, Metabolic syndrome E88.81 ; History of g astric bypass Z98.890 ; Benign essential hypertension I10 ; Allergic conjunctivitis of both eyes H10.13 and Morbid obesity E66.01 [facility] [address] [facility] [id number] [address] [place] [phone] Mar, Major depression F32.9 [place] [id number] [facility] [address] [id number][place] [id number] Feb, [facility] [address] [facility] [id number] [address] [place] [phone] Feb, Major depression F32.9 [place] [address] [facility] [address] [id number], [place] [id number] Feb, Subacute maxillary sinusitis J01.00 and Bronchitis J40 [place] [address] [facility] [id number] [address] [place] [phone] Feb, Major depressive disorder, r ecurrent, moderate F33.1 [facility] [address] [id number][place] [id number] Jan, [facility] [place] [address] [id number][place] [id number] Jan, Acute non-recurrent maxillary sinusitis J01.00 and Skin tag L91.8 [facility] [address] [id number][place] [id number] Jan, Cough R05 and Sinus congestion R09.81 [facility] [address] [id number][place] [id number] Jan, [facility] [place] [address] [place] [address] AVE [id number][place] [id number] Jan, Benign essential hypertension I10 ; Hist ory of gastric bypass Z98.890 and Nausea and vomiting in adult R11.2 [facility] [address] [facility] [id number] [address] [place] [phone] [id number] Jan, 2017 Major depressive disorder, r ecurrent, moderate F33.1 [place] [address] [facility] [id number] [place] [id number] Dec, Insomnia G47.00 ; Recurrent major depressive disorder, in partial remission F33.41 and Morbid obesity E66.01 [facility] [address] [id number], [place] [id number] Dec, [facility] [address] [id number] [place] [address] [id number] Dec, Chronic bacterial conjunctivitis of left eye H10.402 [facility] [address] [id number], [place] [id number] Nov, [facility] [address] [id number], [place] [id number] Nov, Dental examination Z01.20 [facility] [address] [id number][place] [id number] Nov, Benign essential hypertension I10 ; Hist ory of gastric bypass Z98.890 and Nausea and vomiting in adult R11.2 [facility] [address] [facility] [id number] [address] [place] [phone] 13 Nov, 2016 Major depressive disorder, r ecurrent, moderate F33.1 ; Generalized anxiety disorder F41.1 and Insomnia due to other mental disorder F51.05 [place] [id number] [facility] [id number] [address] [place] [id number] 12 Nov, 2016 Recurrent major depressive d isorder, in partial remission F33.41 ; Insomnia G47.00 and Morbid obesity E66.01 [facility] [address] [id number] FANNYKiesha S [id number] October, Abscess of left arm L02.414 [facility] [address] [facility] [id number] [address] [place] [id number] October, Morbid obesity E66.01 ; Ilda r depression F32.9 and Recurrent major depressive disorder, in partial remission F33.[address] [place] [id number] [place] [address] [id number] Sep, Benign essential hypertension I10 ; Morb id obesity E66.01 ; S/P gastric bypass Z98.84 ; Abscess L02.91 and Chronic bacterial conjunctivitis of left eye H10.[address] [id number] [place] [address] [id number] Sep, Dental examination Z01.20 [place] [address] [place] [id number] [address] [place] [id number] Sep, Morbid obesity E66.01 ; Lida r depression F32.9 and Recurrent major depressive disorder, in partial remission F33.41 [place] [address] [place] [id number] [address] [place] [id number] Jul, [place] [address] [place] [id number] [address] [place] [id number] Jul, Major depressive disorder, r ecurrent, moderate F33.1 [place] [address] [place] [id number] [address] [place] [id number] Jul, Major depressive disorder, r ecurrent, moderate F33.1 and Generalized anxiety disorder F41.1 [facility] [id number] [place] [address] [id number] Jul, Cough R05 [place] [address] [place] [id number] [address] [place] [id number] 16 Jul, 2016 Morbid obesity E66.01 ; Lida r depression F32.9 and Recurrent major depressive disorder, in partial remission F33.41 [facility] [address] [id number], [place] [id number] Jul, [facility] [id number] [place] [address] [id number] Jul, [facility] [id number] [place] [address] [id number] Jul, Gastroenteritis K52.9 and Cough R05 [facility] [id number] [place] [address] [id number] Jun, Acute bacterial conjunctivitis of left e ye H10.32 [facility] [address] [facility] [id number] [address] [place] [id number] Jun, [facility] [address] [facility] [id number] [address] [place] [id number] Jun, Recurrent major depressive d isorder, in partial remission F33.41 [facility] [address] [place] [id number] [address] [place] [phone] May, Major depression F32.9 and M orbid obesity E66.01 [place] [address] [facility] [id number] [address] [place] [phone] May, [facility] [address] [facility] [address] [id number] [place] [address] [id number] May, Thrush B37.0 [facility] [address] [facility] [id number] [address] [place] [id number] Apr, Major depressive disorder, r ecurrent, moderate F33.1 [facility] [address] [facility] [id number] [address] [place] [id number] Apr, Insomnia G47.00 ; Major depr ession F32.9 and Recurrent major depressive disorder, in partial remission F33.41 [facility] [address] [facility] [id number] [address] [place] [id number] Apr, [facility] [address] [facility] [id number] [address] [place] [id number] Apr, Major depression F32.9 and R ecurrent major depressive disorder, in partial remission F33.41 [facility] [id number] [place] [address] [id number] Mar, Benign essential hypertension I10 ; Morb id obesity E66.01 ; Impacted cerumen of both ears H61.23 ; Laceration of finger of right hand, initial encounter S61.219A and Encounter for immunization Z23 [facility] [address] [facility] [id number] [address] [place] [id number] 17 Mar, 2016 [facility] [address] [facility] [id number] [address] [place] [id number] Mar, [facility] [address] [facility] [id number] [address] [place] [phone] Mar, [id number] [place] [address] [id number] Feb, Nausea R11.0 ; Blood in the stool K92.1 and Benign essential hypertension I10 [facility] [address] [facility] [id number] [address] [place] [id number] Feb, Major depression F32.9 and R ecurrent major depressive disorder, in partial remission F33.41 [place] [address] [facility] [address] [id number], [place] [id number] Feb, [facility] [address] [id number], [place] [id number] Feb, Recurrent major depressive disorder, in partial remission F33.41 [facility] [address] [id number], [place] [id number] Jan, [facility] [address] [id number] [place] [address] [id number] Jan, Benign essential hypertension I10 ; Robert a R60.9 and Hyperlipidemia, unspecified hyperlipidemia type E78.[address] [place] [address] [id number], [place] [id number] Jan, Recurrent major depressive disorder, in partial remission F33.41 [facility] [address] [id number] Kiesha ESCOBEDO S [id number] Jan, [facility] [address] [id number], [place] [id number] Jan, [facility] [address] [id number], [place] [id number] Jan, [facility] [address] [facility] [id number] [address] [place] [phone] Jan, [facility] [address] [facility] [id number] [address] [place] [id number] Dec, [facility] [address] [facility] [id number] [address] [place] [phone] Nov, [facility] [address] [facility] [id number] [address] [place] [phone] Nov, Major depression F32.9 [facility] [address] [facility] [id number] [address] [place] [phone] Nov, [facility] [address] [facility] [id number] [address] [place] [id number] Nov, [facility] [address] [facility] [id number] [address] [place] [phone] Nov, Major depressive disorder, r ecurrent episode, mild F33.0 and Anxiety F41.9 [facility] [address] [id number], [place] [id number] Nov, [facility] [address] [id number], [place] [id number] October, Left elbow pain M25.522 and Other season al allergic rhinitis J30.2 [facility] [address] [id number], [place] [id number] October, [facility] [address] [facility] [id number] [address] [place] [phone] October, Major depressive disorder, r ecurrent, moderate F33.1 [facility] [address] [facility] [id number] [address] [place] [phone] October, Major depression F32.9 [facility] [address] [facility] [id number] [address] [place] [id number] Sep, [place] or callus L84 and Onych omycosis B35.1 [facility] [address] [facility] [id number] [address] [place] [id number] Sep, Major depressive disorder, r ecurrent, moderate F33.1 [facility] [address] [facility] [id number] [address] [place] [id number] Sep, Major depression F32.9 [facility] [address] [facility] [id number] [address] [place] [id number] Sep, Moderate episode of recurren t major depressive disorder F33.1 [facility] [address] [id number], [place] [id number] Sep, Muscle strain T14.8 [facility] [address] [facility] [id number] [address] [place] [id number] Aug, Major depression F32.9 [facility] [address] [facility] [id number] [address] [place] [id number] Aug, Major depression F32.9 [facility] [address] [facility] [id number] [address] [place] [id number] Jul, Morbid obesity E66.01 and Ma cora depression F32.9 [facility] [address] [id number] [address] [place] [id number] Jul, Depression, major, recurrent , moderate F33.1 [facility] [address] [id number], [place] [id number] Jul, [facility] [address] [facility] [id number] [address] [place] [id number] Jul, [facility] [address] [facility] [id number] [address] [place] [id number] 16 Jul, 2015 Major depression F32.9 and M orbid obesity E66.[address] [id number] [place] [address] [id number] 11 Jul, 2015 Type II diabetes mellitus E11.9 ; Callus of foot L84 ; Benign essential hypertension I10 and Renal insufficiency N28.9 [place] [address] [facility] [id number] [address] [place] [phone] 09 Jul, 2015 Depression, major, recurrent , moderate F33.1 [place] [address] [facility] [id number] [address] [place] [id number] Jul, Major depression F32.9 [place] [address] [place] [id number] [address] [place] [phone] Jul, [place] [address] [place] [id number] [address] [place] [id number] Jun, Major depression F32.9 [place] [address] [facility] [id number] [address] [place] [id number] Jun, Major depressive disorder, r ecurrent, moderate F33.1 [place] [address] [place] [id number] [address] [place] [id number] Jun, [place] [address] [place] [id number] [address] [place] [id number] Jun, Major depressive disorder, r ecurrent, moderate F33.1 and Major depression F32.[address] [id number], [place] [id number] Jun, Type II diabetes mellitus E11.9 [place] [address] [facility] [id number] [address] [place] [id number] Jun, Depression, major, recurrent , moderate F33.1 [place] [address] [facility] [id number] [address] [place] [id number] May, Major depressive disorder, r ecurrent, moderate F33.1 [facility] [address] [facility] [id number] [address] [place] [id number] May, [address] [id number] [place] [address] [id number] May, Edema R60.9 [facility] [address] [facility] [id number] [address] [place] [id number] May, Insomnia G47.00 and Major de pression F32.[address] [id number] [place] [address] [id number] 15 May, 2015 Morbid obesity E66.01 ; Edema R60.9 ; Sh ortness of breath R06.02 ; Benign essential hypertension I10 and Renal insufficiency N28.[address] [id number] [place] [address] [id number] May, Hyperlipemia 272.4 and Renal insufficien cy N28.9 [place] [id number] [facility] [id number] [address] [place] [phone] Apr, Major depression F32.9 [place] [address] [facility] [id number] [address] [place] [id number] Apr, [facility] [address] [facility] [id number] [address] [place] [id number] Apr, Major depressive disorder, r ecurrent, moderate F33.[address] [id number] [place] [address] [id number] Apr, Type II diabetes mellitus E11.9 ; Benign essential hypertension I10 ; Edema R60.9 and Renal insufficiency N28.9 [facility] [address] [facility] [id number] [address] [place] [id number] Mar, Major depressive disorder, r ecurrent, moderate F33.1 [place] [id number] [facility] [id number] [address] [place] [id number] Mar, [facility] [address] [facility] [id number] [address] [place] [phone] Mar, Major depression F32.9 [facility] [id number] [place] [address] [id number] 08 Mar, 2015 Morbid obesity E66.01 ; Benign essential hypertension I10 and Type II diabetes mellitus E11.9 [place] [address] [place] [id number] [address] [place] [id number] Feb, Major depressive disorder, r ecurrent, moderate F33.1 [place] [address] [place] [id number] [address] [place] [id number] 24 Feb, 2015 Major depressive disorder, r ecurrent episode, in partial or unspecified remission 296.35 ; Anxiety state, unspecified 300.00 and Morbid obesity 278.01 [place] [address] [facility] [id number] [address] [place] [id number] Feb, [address] [id number] [place] [address] [id number] 16 Feb, 2015 Vomiting 787.03 and Viral syndrome 079.9 [address] [place] [id number] [address] [place] [id number] 15 Feb, 2015 Major depression, recurrent 296.30 ; Generalized anxiety disorder 300.02 and No condition on [place] II V71.[address] [id number] [place] [address] [id number] Feb, Skin tag 701.9 [place] [address] [facility] [id number] [address] [place] [id number] Feb, [address] [id number] [address] [place] [id number] Jan, Depression, major, recurrent , moderate 296.[address] [id number] [place] [address] [id number] Jan, Nausea and vomiting 787.01 ; Rib pain on right side 786.50 and Fall on or from sidewalk curb E880.1 [place] [address] [place] [id number] [address] [place] [id number] Jan, [facility] [address] [facility] [id number] [address] [place] [id number] Jan, Major depressive disorder, r ecurrent episode, in partial or unspecified remission 296.35 and Anxiety state, unspecified 300.00 [facility] [address] [place] [address] AVE [id number], [place] [id number] Jan, [facility] [address] [place] [id number] [address] [place] [id number] Jan, Depression, major, recurrent , moderate 296.[address] [id number] Jan, Major depression, recurrent 296.30 ; No condition on [place] II V71.09 and No condition on axis III V71.09 [facility] [address] [place] [address] AVE [id number], [place] [id number] Jan, Drug-induced nausea and vomiting 787.01 [facility] [address] [place], [place] [id number] [address] [place] [id number] Jan, Depression, major, recurrent , moderate 296.32 [place] [id number] [place] [id number] Dec, Depression, major, recurrent , moderate 296.32 [facility] [address] [place] [address] AVE [id number], [place] [id number] Dec, Morbid obesity 278.01 ; Metabolic syndro me 277.7 ; Hyperlipemia 272.4 ; Benign essential hypertension 401.1 ; Dietary counseling V65.3 ; Exercise counseling V65.41 and Inflamed skin tag 701.9 [place] [id number] [address] [place] [id number] Dec, Depression, major, recurrent , moderate 296.32 [facility] [address] [place] [id number] [address] [place] [id number] Dec, [facility] [address] [id number] Dec, Major depression, recurrent 296.30 ; Anxiety, generalized 300.02 and No condition on [place] II V71.09 [place] [address] [place] [id number] Dec, Depression, major, recurrent , moderate 296.[address] [id number] Dec, Major depressive disorder, r ecurrent episode, moderate 296.32 [place] [id number] Dec, Depression, major, recurrent , moderate 296.[address] [address] Dec, Depression, major, recurrent , moderate 296.32 [place] 879352[address] Dec, Depression, major, recurrent , moderate 296.[address] [address] Dec, Depression, major, recurrent , moderate 296.[address] [address] Nov, Depression, major, recurrent , moderate 296.[address] [address] Nov, Major depression 296.20 ; So cial phobia 300.23 and No condition on [place] II V71.[address] [address] Nov, Depression, major, recurrent , moderate 296.[address] [address] Nov, Major depressive disorder, r ecurrent episode, moderate 296.32 and Generalized anxiety disorder 300.02 [place] [id number] [address] [place] [id number] 09 Nov, 2014 Depression, major, recurrent , moderate 296.32 [facility] [address] [id number] [address] [place] [id number] Nov, Depression, major, recurrent , moderate 296.32 [facility] [address] [id number] [address] [place] [id number] October, Generalized anxiety disorder 300.02 ; No condition on [place] II V71.09 and Major depressive disorder, recurrent 296.30 [facility] [address] [id number] [address] [place] [id number] Sep, [facility] [address] [id number] [address] [place] [id number] Sep, [facility] [address] [id number] [address] [place] [phone] Aug, [facility] [address] [id number] [address] [place] [id number] Aug, [facility] [address] [id number] [address] [place] [id number] Aug, [facility] [address] [id number] [address] [place] [id number] Aug, [facility] [address] [id number] [address] [place] [id number] Aug, [facility] [address] [id number] [address] [place] [id number] Aug, [facility] [address] [id number] [address] [place] [phone] Aug, [facility] [address] [id number] [address] [place] [id number] Aug, [facility] [address] [id number] [address] [place] [phone] Aug, [facility] [address] [id number] [address] [place] [address], [place] [address] 13 Aug, 2014 [facility] [address] [id number] [address] [place] [address], [place] [id number] 13 Aug, 2014 [facility] [address] [id number] [address] [place] [address], [place] [id number] 13 Aug, 2014 [facility] [address] [id number] [address] [place] [address], [place] [id number] 12 Aug, 2014 [facility] [address] [id number] [address] [place] [address], [place] [id number] 12 Aug, 2014 [facility] [address] [id number] [address] [place] [address], [place] [id number] Aug, [facility] [address] [id number] [address] [place] [address], [place] [id number] Aug, [facility] [address] [id number] [address] [place] [address], [place] [id number] Aug, [facility] [address] [id number] [address] [place] [address], [place] [id number] Aug, [facility] [address] [id number] [address] [place] [address], [place] [id number] Jul, [facility] [address] [id number] [address] [place] [address], [place] [id number] Jul, [facility] [address] [id number] [address] [place] [address], [place] [id number] 16 Jul, 2014 [facility] [address] [id number] [address] [place] [address], [place] [id number] Jul, 2014 [facility] [address] [id number] [address] [place] [address], [place] [id number] Jul, [facility] [address] [id number] [address] [place] [address], [place] [id number] Jul, 2014 [facility] [address] [id number] [address] [place] [address], [place] [id number] Jun, [facility] [address] [id number] [address] [place] [address], [place] [id number] Jun, [facility] [address] [id number] [address] [place], [place] [address], [place] [address] Jun, [facility] [address] [id number] [address] [place] [address], [place] [address] Jun, [facility] [address] [id number] [address] [place] [address], [place] [address] Jun, [facility] [address] [id number] [address] [place] [address], [place] [address] Jun, [facility] [address] [id number] [address] [place] [address], [place] [address] Jun, [facility] [address] [id number] [address] [place] [address], [place] [address] Jun, [facility] [address] [id number] [address] [place] [address], [place] [address] Jun, [facility] [address] [id number] [address] [place] [address], [place] [address] Jun, [facility] [address] [id number] [address] [place] [id number] Jun, [facility] [address] [id number] [address] [place] [address], [place] [address] Jun, [facility] [address] [id number] [id number] Jun, [facility] [address] [id number] [address] [place] [address], [place] [address] Jun, [facility] [address] [id number] [address] [place] [address], [place] [id number] Jun, [facility] [address] [id number] [address] [place] [address], [place] [address] Jun, [facility] [address] [id number] [address] [place] [address], [place] [address] May, [facility] [address] [id number] [address] [place] [address], [place] [address] May, [facility] [address] [id number] [address] [place] [address], [place] [id number] May, [facility] [address] [id number] [address] [place] [address], [place] [phone] May, [facility] [address] [id number] [address] [place] [address], [place] [address] Apr, [facility] [address] [id number] [address] [place] [address], [place] [address] Apr, [facility] [address] [id number] [address] [place] [address], [place] [phone] Apr, [facility] [address] [id number] [address] [place] [address], [place] [address] Apr, [facility] [address] [id number] [address] [place] [address], [place] [id number] Apr, [facility] [address] [id number] [address] [place] [address], [place] [id number] Apr, [facility] [address] [id number] [address] [place] [address], [place] [address] Apr, [facility] [address] [id number] [address] [place] [address], [place] [address] Apr, [facility] [address] [id number] [address] [place] [address], [place] [id number] Apr, [facility] [address] [id number] [address] [place] [address], [place] [address] Apr, [facility] [address] [id number] [address] [place] [address], [place] [address] Apr, [facility] [address] [id number] [address] [place] [address], [place] [address] Apr, [facility] [address] [id number] [address] [place] [address], [place] [address] Apr, [facility] [address] [id number] [address] [place] [address], [place] [address] Apr, [facility] [address] [id number] [address] [place] [address], [place] [address] Apr, [facility] [address] [id number] [address] [place] [address], [place] [address] Apr, [facility] [address] [id number] [address] [place] [address], [place] [address] Apr, [facility] [address] [id number] [address] [place] [address], [place] [id number] Apr, [facility] [address] [id number] [address] [place] [address], [place] [address] Apr, [facility] [address] [id number] [address] [place] [address], [place] [address] Apr, [facility] [address] [id number] [address] [place] [address], [place] [address] Mar, [facility] [address] [id number] [address] [place] [address], [place] [address] Mar, [facility] [address] [id number] [address] [place] [address], [place] [address] Mar, [facility] [address] [id number] [address] [place] [address], [place] [address] Mar, [facility] [address] [id number] [address] [place] [address], [place] [address] Mar, [facility] [address] [id number] [address] [place] [address], [place] [address] Mar, [facility] [address] [id number] [address] [place] [address], [place] [id number] Mar, [facility] [address] [id number] [address] [place] [address], [place] [address] Mar, [facility] [address] [id number] [address] [place] [address], [place] [address] Mar, [facility] [address] [id number] [address] [place] [address], [place] [address] Mar, [facility] [address] [id number] [address] [place] [address], [place] [address] Feb, [facility] [address] [id number] [address] [place] [address], [place] [address] Feb, [facility] [address] [id number] [address] [place] [address], [place] [address] Feb, [facility] [address] [id number] [address] [place] [address], [place] [address] Feb, [facility] [address] [id number] [address] [place] [address], [place] [address] Jan, [facility] [address] [id number] [address] [place] [address], [place] [address] Jan, [facility] [address] [id number] [address] [place] [address], [place] [address] Jan, [facility] [address] [id number] [address] [place] [address], [place] [address] Jan, [facility] [address] [id number] [address] [place] [address], [place] [address] Jan, [facility] [address] [id number] [address] [place] [address], [place] [address] Jan, [facility] [address] [id number] [address] [place] [address], [place] [address] Dec, [facility] [address] [id number] [address] [place] [address], [place] [address] Dec, [facility] [address] [id number] [address] [place] [address], [place] [address] Nov, [facility] [address] [id number] [address] [place] [address], [place] [address] Nov, [facility] [address] [id number] [address] [place] [address], [place] [address] Nov, [facility] [address] [id number] [address] [place] [address], [place] [address] Nov, [facility] [address] [id number] [address] [place] [address], [place] [address] Nov, [facility] [address] [id number] [address] [place] [address], [place] [address] Nov, [facility] [address] [id number] [address] [place] [address], [place] [address] Sep, [facility] [address] [id number] [address] [place] [address], [place] [address] Sep, [facility] [address] [id number] [address] [place] [address], [place] [address] Sep, [facility] [address] [id number] [address] [place] [address], [place] [address] Sep, [facility] [address] [id number] [address] [place] [address], [place] [address] Aug, [facility] [address] [id number] [address] [place] [address], [place] [address] Aug, [facility] [address] [id number] [address] [place] [address], [place] [address] Jul, [facility] [address] [id number] [address] [place] [address], [place] [address] Jul, [facility] [address] [id number] [address] [place] [address], [place] [address] Jun, [facility] [address] [id number] [address] [place] [address], [place] [address] Jun, [facility] [address] [id number] [address] [place] [address], [place] [address] Jun, [facility] [address] [id number] [address] [place] [address], [place] [address] Jun, [facility] [address] [id number] [address] [place] [address], [place] [address] May, [facility] [address] [id number] [address] [place] [address], [place] [address] May, [facility] [address] [id number] [address] [place] [address], [place] [address] May, [facility] [address] [id number] [address] [place] [address], [place] [address] May, [facility] [address] [id number] [address] [place] [address], [place] [address] May, [facility] [address] [id number] [address] [place] [address], [place] [address] May, [facility] [address] [id number] [address] [place] [address], [place] [address] Apr, [facility] [address] [id number] [address] [place] [address], [place] [address] Apr, [facility] [address] [id number] [address] [place] [address], [place] [id number] Apr, [facility] [address] [id number] [address] [place] [address], [place] [address] Apr, [facility] [address] [id number] [address] [place] [address], [place] [id number] Mar, [facility] [address] [id number] [address] [place] [address], [place] [address] Mar, [facility] [address] [id number] [address] [place] [address], [place] [address] Mar, [facility] [address] [id number] [address] [place] [address], [place] [address] Mar, [facility] [address] [id number] [address] [place] [address], [place] [address] Feb, [facility] [address] [id number] [id number] Jan, [facility] [address] [id number] [address] [place] [id number] Jan, [facility] [address] [id number] [address] [place] [address], [place] [address] Dec, [facility] [address] [id number] [address] [place] [id number] Dec, [facility] [address] [id number] [address] [place] [address], [place] [address] Dec, [facility] [address] [id number] [place] [id number] Dec, [facility] [address] [id number] [address] [place] [id number] Nov, [facility] [address] [id number] [address] [place] [id number] Nov, [facility] [address] [id number] [address] [place] [id number] Nov, [facility] [address] [id number] [address] [place] [id number] Nov, [facility] [address] [id number] [address] [place] [id number] Nov, [facility] [address] [id number] [address] [place] [id number] October, [facility] [address] [id number] [address] [place] [id number] October, [facility] [address] [id number] [address] [place] [id number] Aug, [facility] [address] [id number] [address] [place] [id number] 13 Nov, 2011 IMMUNIZATIONS No Known Immunizations SOCIAL HISTORY Never Assessed REASON FOR VISIT PLAN OF CARE VITAL SIGNS Height 72 in 2013-11-29 Weight 451.19 lbs 2013-11-29 Temperature 99 degrees Fahrenheit 2013-11-29 Heart Rate 84 bpm 2013-11-29 Respiratory Rate 18 2013-11-29 Blood pressure systolic 130 mmHg 2013-11-29 Blood pressure diastolic 60 mmHg 2013-11-29 MEDICATIONS Unknown Medications RESULTS No Results PROCEDURES Procedure Date Ordered Result Body Site GLYCATED HEMOGLOBIN TEST November 29, 2013 INSTRUCTIONS MEDICATIONS ADMINISTERED No Known Medications [...] 03/2016 Hospitalization History gastric sleeve Hospitalization History [facility] Trouble with left shoulder blade 08/2017
--- OUTSIDE RECORDS SUMMARY | 2019-11-29 09:05 | XMS REPORT ---
Author Author Curt Hughes [facility] Organization [facility] Address [address] [place], [place] [id number] Care Team Providers Care Bakery Manager Name Role Phone Salu [facility] JASON Unavailable PROBLEMS Type Condition ICD9-CM Code IVE37-JT Code Onset Dates Condition S tatus SNOMED Code Problem Insomnia G47.00 Active 360460633 Problem Hyperlipemia E78.5 Active 5669237 4 Problem Morbid obesity E66.01 Active 32834 6002 Problem Benign essential hypertension I10 Active 0566693 Problem Renal insufficiency N28.9 Active 789128943 Problem Edema R60.9 Active 061114254 Problem Severe episode of recurrent major depressive disorder, without psychotic features F33.2 Active 37800958 Problem Metabolic syndrome E88.81 Active 2 27148226 Problem DANIELA (generalized anxiety disorder) F41.1 Active 38282318 Problem BMI 45.0-49.9, adult Z68.42 Active 901166470 Problem Sciatica, right side M54.31 Active [id number] Problem Hammer toe of second toe of right foot M20.41 Active 857737780 Problem Mixed obsessional thoughts and acts F42.2 Active 04164058 Problem Hammer toe of right foot M20.41 Activ e 812984890 Problem Vitamin D deficiency E55.9 Active 22920698 Problem Chronic fatigue R53.82 Active 8422 9001 Problem Other chronic pain G89.29 Active 8 4055571 Problem Borderline personality disorder F60.3 Active 25647542 Problem Callous ulcer, limited to breakdown of skin L98.49 1 Active ALLERGIES No Information ENCOUNTERS Encounter Location Date Diagnosis [facility] [address] [facility] [address] [id number] [place] [id number] Jun, [facility] [address] [facility] [id number] [place] [id number] 14 Mar, 2019 [facility] [address] [facility] [id number] [address] [place] [address] Feb, [id number] [place] [id number] Feb, [facility] [address] [facility] [id number] [address] [place] [address] Feb, [facility] [address] [facility] [id number] [address] [place] [address] Feb, DANIELA (generalized anxiety dis order) F41.1 ; Severe episode of recurrent major depressive disorder, without psychotic features F33.2 ; Mixed obsessional thoughts and acts F42.2 and Borderline personality disorder F60.3 [facility] [address] [facility] [id number] [address] [place] [address] Feb, [facility] [address] [facility] [id number] [address] [place] [address] Jan, [facility] [address] [facility] [id number] [address] [place] [address] Jan, [facility] [address] [facility] [id number] [address] [place] [address] Jan, [facility] [id number] [place] [id number] Jan, Callus of heel L84 ; Fissure in skin R23 .4 and Hammer toe of second toe of right foot M20.41 [facility] [address] [id number][place] [id number] Jan, [facility] [address] [facility] [id number] [address] [place] [address] Jan, [facility] [address] [facility] [id number] [address] [place] [address] Jan, [facility] [address] [facility] [id number] [address] [place] [address] Jan, Severe episode of recurrent major depressive disorder, without psychotic features F33.2 ; DANIELA (generalized anxiety disorder) F41.1 ; Mixed obsessional thoughts and acts F42.2 and Borderline personality disorder F60.3 [facility] [address] [facility] [id number] [address] [place] [address] Jan, [facility] [address] [facility] [address] [id number][place] [id number] Jan, Benign essential hypertension I10 [id number] [place] [address] [id number] Dec, Callous ulcer, limited to breakdown of s kin L98.491 and Morbid obesity E66.01 [place] [address] [facility] [id number] [address] [place] [address] Dec, [facility] [address] [place] [id number] [address] [place] [address] Dec, [facility] [address] [place] [id number] [address] [place] [address] Dec, [facility] [address] [facility] [id number] [address] [place] [phone] Dec, [place] [address] [place] [id number] [address] [place] [address] Dec, Severe episode of recurrent major depressive disorder, without psychotic features F33.2 [facility] [address] [place] [id number] [address] [place] [address] Dec, DANIELA (generalized anxiety dis order) F41.1 ; Severe episode of recurrent major depressive disorder, without psychotic features F33.2 ; Mixed obsessional thoughts and acts F42.2 and 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 [address] [id number], [place] [id number] Dec, Morbid obesity E66.01 [facility] [address] [facility] [id number] [address] [place] [address] Dec, [facility] [address] [facility] [id number] [address] [place] [address] Dec, [facility] JENNY [address] [address] Nov, [facility] [address] [id number], [place] [id number] Nov, [facility] [address] [facility] [id number] [address] [place] [address] Nov, [facility] [address] [facility] [id number] [address] [place] [address] Nov, [facility] [address] [facility] [id number] [address] [place] [phone] Nov, DANIELA (generalized anxiety dis order) F41.1 ; Severe episode of recurrent major depressive disorder, without psychotic features F33.2 ; Mixed obsessional thoughts and acts F42.2 and 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 [facility] [address] [id number][place] [id number] Nov, Morbid obesity E66.01 [facility] [address] [facility] [id number] [address] [place] [address] Nov, [facility] [address] [facility] [id number] [address] [place] [address] Nov, DANIELA (generalized anxiety dis order) F41.1 ; Mixed obsessional thoughts and acts F42.2 ; Severe episode of recurrent major depressive disorder, without psychotic features F33.2 and 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 [facility] [place] [address] [facility] [address] [id number], [place] [id number] October, Morbid obesity E66.01 [facility] [place] [address] [facility] [address] [id number], [place] [id number] October, Benign essential hypertension I10 and Mo rbid obesity E66.01 [facility] [address] [address] [id number], [place] [id number] October, [facility] [address] [facility] [id number] [address] [place] [address] October, Severe episode of recurrent major depressive disorder, without psychotic features F33.2 [facility] [address] [facility] [address] [id number], [place] [id number] October, Morbid obesity E66.01 [facility] [address] [place] [address] AVE [id number], [place] [id number] October, [facility] [address] [facility] [id number] [address] [place] [address] October, Severe episode of recurrent major depressive disorder, without psychotic features F33.2 ; DANIELA (generalized anxiety disorder) F41.1 ; Mixed obsessional thoughts and acts F42.2 and 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 [id number], [place] [id number] October, Morbid obesity E66.[address] [facility] [address] [place] [id number] [address] [place] [id number] Sep, Dental examination Z01.20 [facility] [address] [id number], [place] [id number] Sep, [facility] [address] [place] [address] Sep, Sore in mouth K13.79 and Mor bid obesity E66.01 [facility] [address] [facility] [id number] [address] [place] [address] Sep, Dental examination Z01.20 [facility] [address] [place] [id number] [address] [place] [address] Sep, Anxiety disorder, unspecifie d F41.9 [facility] [address] [id number], [place] [id number] Sep, Mouth ulcer K12.1 [facility] [address] [id number], [place] [id number] Sep, Morbid obesity E66.[address] [id number], [place] [id number] Sep, Allergic rhinitis, unspecified seasonali ty, unspecified trigger J30.9 and Shortness of breath R06.[address] [id number], [place] [id number] Sep, 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 [id number], [place] [address] Aug, Mouth abscess K12.2 ; Mouth ulcer K12.1 ; Bloating R14.0 and Morbid obesity E66.[address] [id number], [place] [id number] Aug, [facility] [address] [id number], [place] [id number] Aug, [address] [id number], [place] [address] Jul, Major depressive disorder, recurrent, mo derate F33.1 ; Abscess of arm, left L02.414 ; BMI 45.0-49.9, adult Z68.42 and Morbid obesity E66.[address] [id number], [place] [id number] Jul, [address] [id number], [place] [id number] Jul, [address] [id number], [place] [id number] Jun, Pain in right knee M25.561 and Other chr onic pain G89.[address] [id number], [place] [id number] Jun, Benign essential hypertension I10 ; BMI 45.0-49.9, adult Z68.42 ; Morbid obesity E66.01 ; Vitamin D deficiency E55.9 ; Insomnia G47.00 ; 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 ; Edema R60.9 ; Recurrent major depressive disorder, in partial remission F33.41 ; Chronic fatigue R53.82 ; Acute pain of right knee M25.561 ; Metabolic syndrome E88.81 and Irritable mood R45.4 [facility] [address] [facility] [id number] [address] [place] [address] Jun, [facility] [place] [address] [facility] [address] [id number], [place] [address] Jun, Irritable mood R45.4 [facility] [address] [facility] [id number] [address] [place] [address] May, [facility] [address] [facility] [id number] [address] [place] [address] May, [facility] [address] [facility] [id number] [address] [place] [address] May, Recurrent major depressive d isorder, in partial remission F33.41 ; Mixed obsessional thoughts and acts F42.2 ; 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 and BMI 45.0-49.9, adult Z68.42 [facility] [address] [facility] [id number] [address] [place] [address] Apr, [facility] [address] [facility] [id number] [address] [place] [address] Apr, [facility] [address] [facility] [id number] [address] [place] [address] Apr, [facility] [address] [facility] [id number] [address] [place] [address] Apr, [facility] [address] [facility] [id number] [address] [place] [address] Mar, Mixed obsessional thoughts a nd acts F42.2 ; Recurrent major depressive disorder, in partial remission F33.41 ; DANIELA (generalized anxiety disorder) F41.1 and BMI 45.0-49.9, adult Z68.42 [facility] [address] [address] [id number], [place] [id number] Mar, [facility] [address] [id number], [place] [id number] Mar, BMI 45.0-49.9, adult Z68.42 ; Instabilit y of right knee joint M25.361 and Rash R21 [place] [address] [facility] [id number] [address] [place] [address] Jan, Recurrent major depressive d isorder, in partial remission F33.41 ; Mixed obsessional thoughts and acts F42.2 and BMI 45.0-49.9, adult Z68.42 [facility] [address] [place] [address] [id number], [place] [id number] Jan, [facility] [address] [place] [address] [id number], [place] [id number] Jan, Benign essential hypertension I10 ; BMI 45.0-49.9, adult Z68.42 ; Metabolic syndrome E88.81 and Allergic rhinitis, unspecified seasonality, unspecified trigger J30.9 [place] [address] [place] [id number] [address] [place] [address] Dec, DANIELA (generalized anxiety dis order) F41.1 and Depressive disorder, not elsewhere classified F32.9 [facility] [address] [id number], [place] [id number] Dec, Recurrent major depressive disorder, in partial remission F33.41 [facility] [address] [address] [id number], [place] [id number] Dec, [facility] [address] [id number], [place] [id number] Nov, [facility] [address] [place] [address] [id number], [place] [id number] Nov, Recurrent major depressive disorder, in partial remission F33.41 [place] [address] [facility] [id number] [address] [place] [address] Nov, Recurrent major depressive d isorder, in partial remission F33.41 ; Mixed obsessional thoughts and acts F42.2 ; DANIELA (generalized anxiety disorder) F41.1 and BMI 45.0-49.9, adult Z68.42 [facility] [address] [id number], [place] [id number] Nov, [facility] [address] [id number], [place] [id number] Nov, Other conjunctivitis of both eyes H10.89 and Sciatica, right side M54.31 [facility] [address] [id number], [place] [id number] Nov, [facility] [address] [id number], [place] [id number] Nov, [facility] [address] [id number], [place] [id number] October, [facility] [address] [id number], [place] [id number] October, [facility] [address] [facility] [id number] [address] [place] [address] October, BMI 45.0-49.9, adult Z68.42 ; Mixed obsessional thoughts and acts F42.2 ; Recurrent major depressive disorder, in partial remission F33.41 and DANIELA (generalized anxiety disorder) F41.1 [facility] [address] [id number], [place] [id number] October, Benign essential hypertension I10 ; Morb id obesity E66.01 and BMI 45.0-49.9, adult Z68.42 [facility] [address] [id number], [place] [id number] Sep, [facility] [address] [id number], [place] [id number] Sep, [facility] [address] [place] [address] [id number], [place] [id number] Sep, [facility] [address] [id number], [place] [id number] Sep, Hospital discharge follow-up Z09 ; Aller gic rhinitis, unspecified seasonality, unspecified trigger J30.9 and Shortness of breath R06.02 [facility] [address] [address] [id number], [place] 078193969 Sep, Recurrent major depressive disorder, in partial remission F33.[address] [place] [address] [id number], [place] [id number] 15 Aug, 2017 Irritable mood R45.4 [place] [address] [facility] [id number] [address] [place] [address] Aug, [place] [id number] [place] [address] [id number] Jul, Benign essential hypertension I10 ; Robert a R60.9 and Impacted cerumen of left ear H61.22 [place] [address] [facility] [id number] [address] [place] [address] 14 Jul, 2017 Major depression F32.9 ; Rec urrent major depressive disorder, in partial remission F33.41 and Anxiety F41.9 [place] [address] [facility] [id number] [address] [place] [address] Jun, Major depression F32.9 ; Rec urrent major depressive disorder, in partial remission F33.41 and Anxiety F41.[address] [place] [address] [id number], [place] 450975070 Jun, Major depression F32.9 ; Morbid obesity E66.01 ; Irritable mood R45.4 ; Hand weakness R29.898 and Vitamin D deficiency E55.[address] [place] [address] [id number], [place] [id number] Jun, [place] [address] [id number], [place] [id number] May, Major depression F32.9 [place] [address] [facility] [id number] [address] [place] [address] May, Major depression F32.9 [facility] [address] [id number], [place] [id number] May, BMI 50.0-59.9, adult Z68.43 ; Major depr ession F32.9 ; Anxiety F41.9 ; Hypertrophic toenail L60.2 and Pain of left great toe M79.675 [facility] [address] [id number], [place] [id number] May, Recurrent major depressive disorder, in partial remission F33.41 [facility] [address] [facility] [id number] [address] [place] [address] Apr, [facility] [address] [id number], [place] [id number] Apr, [facility] [address] [facility] [id number] [address] [place] [address] Apr, Major depression F32.[address] [place] [id number] [place] [address] [id number] Apr, Severe episode of recurrent major depres sive disorder, without psychotic features F33.2 ; Anxiety F41.9 and Insomnia G47.[address] [place] [address] [id number], [place] 135964496 Apr, [facility] [address] [facility] [id number] [address] [place] [address] Apr, [id number] [place] [address] [id number] Apr, [facility] [address] [id number], [place] [id number] Mar, [facility] [address] [id number], [place] [id number] Mar, Allergic conjunctivitis of both eyes H10 .13 [facility] [address] [facility] [id number] [address] [place] [address] Mar, Major depression F32.9 [facility] [address] [id number], [place] [id number] Mar, Metabolic syndrome E88.81 ; History of g astric bypass Z98.890 ; Benign essential hypertension I10 ; Allergic conjunctivitis of both eyes H10.13 and Morbid obesity E66.01 [facility] [address] [facility] [id number] [address] [place] [address] Mar, Major depression F32.9 [facility] [address] [facility] [address] [id number], [place] [id number] Feb, [facility] [address] [facility] [id number] [address] [place] [address] Feb, Major depression F32.9 [facility] [address] [place] [address] AVE [id number], [place] [id number] Feb, Subacute maxillary sinusitis J01.00 and Bronchitis J40 [place] [address] [place] [id number] [address] [place] [address] Feb, Major depressive disorder, r ecurrent, moderate F33.1 [place] [address] [facility] [address] [id number], [place] [id number] Jan, [id number] [place] [address] [id number] Jan, Acute non-recurrent maxillary sinusitis J01.00 and Skin tag L91.[address] [id number] [place] [address] [id number] Jan, Cough R05 and Sinus congestion R09.[address] [id number], [place] [id number] Jan, [address] [id number] [place] [address] [id number] Jan, Benign essential hypertension I10 ; Hist ory of gastric bypass Z98.890 and Nausea and vomiting in adult R11.2 [place] [address] [facility] [id number] [address] [place] [address] Jan, Major depressive disorder, r ecurrent, moderate F33.1 [facility] [address] [facility] [id number] [address] [place] [address] Dec, Insomnia G47.00 ; Recurrent major depressive disorder, in partial remission F33.41 and Morbid obesity E66.01 [facility] [address] [facility] [address] [id number], [place] [id number] Dec, [facility] [address] [facility] [address] [id number], [place] [id number] Dec, Chronic bacterial conjunctivitis of left eye H10.[address] [id number], [place] [id number] Nov, [facility] [address] [id number], [place] [id number] Nov, Dental examination Z01.[id number] [place] [address] [id number] Nov, Benign essential hypertension I10 ; Hist ory of gastric bypass Z98.890 and Nausea and vomiting in adult R11.2 [place] [id number] [place] [id number] Nov, Major depressive disorder, r ecurrent, moderate F33.1 ; Generalized anxiety disorder F41.1 and Insomnia due to other mental disorder F51.05 [place] [id number] [address] [place] [id number] Nov, Recurrent major depressive d isorder, in partial remission F33.41 ; Insomnia G47.00 and Morbid obesity E66.01 [facility] [address] [place] [id number] [place] [id number] October, Abscess of left arm L02.414 [place] [address] [address] [place] [id number] [place] [id number] October, Morbid obesity E66.01 ; Lida r depression F32.9 and Recurrent major depressive disorder, in partial remission F33.41 [place] [address] [facility] [id number] [id number] Sep, Benign essential hypertension I10 ; Morb id obesity E66.01 ; S/P gastric bypass Z98.84 ; Abscess L02.91 and Chronic bacterial conjunctivitis of left eye H10.[address] [facility] [address] [id number] [id number] Sep, Dental examination Z01.20 [facility] [address] [facility] [id number] [address] [place] [id number] Sep, Morbid obesity E66.01 ; Lida r depression F32.9 and Recurrent major depressive disorder, in partial remission F33.41 [facility] [address] [facility] [id number] [address] [place] [id number] Jul, [facility] [address] [facility] [id number] [address] [place] [id number] Jul, Major depressive disorder, r ecurrent, moderate F33.1 [place] [address] [address] [place] [id number] [address] [place] [id number] Jul, Major depressive disorder, r ecurrent, moderate F33.1 and Generalized anxiety disorder F41.[address] [place] [id number] [place] [id number] Jul, Cough R05 JOHN [place] [address] [address] [place] [id number] [address] [place] [address] Jul, Morbid obesity E66.01 ; Lida r depression F32.9 and Recurrent major depressive disorder, in partial remission F33.41 [facility] [address] [id number], [place] [id number] Jul, [facility] [address] [id number], [place] [id number] Jul, [facility] [address] [address] [id number], [place] [id number] Jul, Gastroenteritis K52.9 and Cough R05 [facility] [address] [id number], [place] [id number] Jun, Acute bacterial conjunctivitis of left e ye H10.32 [facility] [address] [facility] [id number] [address] [place] [address] Jun, [place] [address] [facility] [id number] [address] [place] [address] Jun, Recurrent major depressive d isorder, in partial remission F33.41 [place] [address] [address] [facility] [id number] [address] [place] [address] May, Major depression F32.9 and M orbid obesity E66.01 [place] [address] [address] [facility] [id number] [address] [place] [address] May, [id number] [place] [id number] May, Thrush B37.0 [place] [address] [place] [id number] [address] [place] [address] Apr, Major depressive disorder, r ecurrent, moderate F33.[address] [address] Apr, Insomnia G47.00 ; Major depr ession F32.9 and Recurrent major depressive disorder, in partial remission F33.41 [place] [address] [place] [id number] [address] [place] [address] Apr, [place] [address] [facility] [id number] [address] [place] [address] 02 Apr, 2016 Major depression F32.9 and R ecurrent major depressive disorder, in partial remission F33.[address] [place] [id number] [place] [address] [id number] 31 Mar, 2016 Benign essential hypertension I10 ; Morb id obesity E66.01 ; Impacted cerumen of both ears H61.23 ; Laceration of finger of right hand, initial encounter S61.219A and Encounter for immunization Z23 [place] [address] [facility] [id number] [address] [place] [address] 17 Mar, 2016 [place] [address] [facility] [id number] [address] [place] [address] Mar, [facility] [address] [facility] [id number] [address] [place] [address] Mar, [facility] [address] [id number], [place] [id number] Feb, Nausea R11.0 ; Blood in the stool K92.1 and Benign essential hypertension I10 [facility] [address] [facility] [id number] [address] [place] [address] Feb, Major depression F32.9 and R ecurrent major depressive disorder, in partial remission F33.41 [facility] [address] [id number], [place] [id number] Feb, [facility] [address] [id number], [place] [id number] Feb, Recurrent major depressive disorder, in partial remission F33.41 [facility] [address] [id number], [place] [id number] Jan, [facility] [address] [id number], [place] [id number] Jan, Benign essential hypertension I10 ; Robert a R60.9 and Hyperlipidemia, unspecified hyperlipidemia type E78.5 [facility] [address] [id number], [place] [id number] Jan, Recurrent major depressive disorder, in partial remission F33.41 [facility] [address] [id number] [place] [id number] Jan, [facility] [address] [id number], [place] [id number] Jan, [facility] [address] [id number], [place] [id number] Jan, [facility] [address] [facility] [id number] [address] [place] [address] Jan, [facility] [address] [facility] [id number] [address] [place] [address] Dec, [facility] [address] [facility] [id number] [address] [place] [address] Nov, [facility] [address] [facility] [id number] [address] [place] [address] Nov, Major depression F32.9 [facility] [address] [facility] [id number] [address] [place] [address] Nov, [facility] [address] [facility] [id number] [address] [place] [address] Nov, [facility] [address] [facility] [id number] [address] [place] [address] Nov, Major depressive disorder, r ecurrent episode, mild F33.0 and Anxiety F41.9 [facility] [id number] [place] [address] [id number] Nov, [facility] [id number] [place] [address] [id number] October, Left elbow pain M25.522 and Other season al allergic rhinitis J30.[address] [place] [id number] [place] [address] [id number] October, [facility] [address] [facility] [id number] [address] [place] [address] October, Major depressive disorder, r ecurrent, moderate F33.1 [facility] [address] [facility] [id number] [address] [place] [address] October, Major depression F32.9 [facility] [address] [facility] [id number] [address] [place] [address] Sep, [place] or callus L84 and Onych omycosis B35.1 [facility] [address] [facility] [id number] [address] [place] [address] Sep, Major depressive disorder, r ecurrent, moderate F33.1 [facility] [address] [facility] [id number] [address] [place] [address] Sep, Major depression F32.9 [facility] [address] [facility] [id number] [address] [place] [address] Sep, Moderate episode of recurren t major depressive disorder F33.1 [facility] [address] [facility] [address] [id number], [place] [id number] Sep, Muscle strain T14.8 [facility] [address] [facility] [id number] [address] [place] [address] Aug, Major depression F32.9 [place] [address] [facility] [id number] [address] [place] [address] Aug, Major depression F32.9 [place] [address] [facility] [id number] [address] [place] [address] 24 Jul, 2015 Morbid obesity E66.01 and Ma cora depression F32.9 [place] [address] [place] [id number] [address] [place] [address] Jul, Depression, major, recurrent , moderate F33.[address] [id number], [place] [id number] Jul, [place] [address] [facility] [id number] [address] [place] [address] Jul, [facility] [address] [facility] [id number] [address] [place] [address] Jul, Major depression F32.9 and M orbid obesity E66.[address] [id number], [place] [id number] 11 Jul, 2015 Type II diabetes mellitus E11.9 ; Callus of foot L84 ; Benign essential hypertension I10 and Renal insufficiency N28.9 [facility] [address] [facility] [id number] [address] [place] [address] 09 Jul, 2015 Depression, major, recurrent , moderate F33.1 [place] [address] [facility] [id number] [address] [place] [id number] 05 Jul, 2015 Major depression F32.9 [facility] [address] [facility] [id number] [address] [place] [address] Jul, [facility] [address] [facility] [id number] [address] [place] [address] Jun, Major depression F32.9 [place] [address] [facility] [id number] [address] [place] [address] Jun, Major depressive disorder, r ecurrent, moderate F33.1 [place] [address] [facility] [id number] [address] [place] [address] Jun, [place] [address] [facility] [id number] [place] [address] Jun, Major depressive disorder, r ecurrent, moderate F33.1 and Major depression F32.[address] [place] [id number] [place] [address] [id number] Jun, Type II diabetes mellitus E11.9 [place] [address] [facility] [id number] [address] [place] [address] Jun, Depression, major, recurrent , moderate F33.1 [place] [address] [facility] [id number] [address] [place] [address] May, Major depressive disorder, r ecurrent, moderate F33.1 [place] [address] [facility] [id number] [address] [place] [address] May, [place] [address] [id number], [place] [id number] May, Edema R60.9 [place] [address] [facility] [id number] [address] [place] [address] May, Insomnia G47.00 and Major de pression F32.9 [facility] [address] [id number], [place] [id number] 15 May, 2015 Morbid obesity E66.01 ; Edema R60.9 ; Sh ortness of breath R06.02 ; Benign essential hypertension I10 and Renal insufficiency N28.9 [place] [address] [facility] [address] [id number], [place] [id number] May, Hyperlipemia 272.4 and Renal insufficien cy N28.9 [place] [address] [facility] [id number] [address] [place] [address] Apr, Major depression F32.9 [place] [address] [facility] [id number] [address] [place] [address] Apr, [place] [address] [facility] [id number] [address] [place] [address] Apr, Major depressive disorder, r ecurrent, moderate F33.[id number] [place] [address] [id number] Apr, Type II diabetes mellitus E11.9 ; Benign essential hypertension I10 ; Edema R60.9 and Renal insufficiency N28.9 [place] [address] [facility] [id number] [address] [place] [address] Mar, Major depressive disorder, r ecurrent, moderate F33.1 [place] [address] [facility] [id number] [address] [place] [address] Mar, [place] [address] [facility] [id number] [address] [place] [address] Mar, Major depression F32.[id number] [place] [address] [id number] Mar, Morbid obesity E66.01 ; Benign essential hypertension I10 and Type II diabetes mellitus E11.9 [place] [address] [facility] [id number] [address] [place] [address] Feb, Major depressive disorder, r ecurrent, moderate F33.1 [place] [address] [facility] [id number] [address] [place] [address] Feb, Major depressive disorder, r ecurrent episode, in partial or unspecified remission 296.35 ; Anxiety state, unspecified 300.00 and Morbid obesity 278.01 [facility] [address] [facility] [id number] [address] [place] [address] Feb, [facility] [address] [facility] [address] [id number], [place] [id number] Feb, Vomiting 787.03 and Viral syndrome 079.9 9 [place] [address] [place] [id number] [address] [place] [address] Feb, Major depression, recurrent 296.30 ; Generalized anxiety disorder 300.02 and No condition on Princeton II V71.09 [facility] [address] [place] [address] AVE [id number] [place] [address] [id number] Feb, Skin tag 701.9 [place] [address] [place] [id number] [address] [place] [address] Feb, [place] [address] [place] [id number] [address] [place] [address] Jan, Depression, major, recurrent , moderate 296.32 [facility] [address] [place] [address] AVE [id number], [place] [id number] Jan, Nausea and vomiting 787.01 ; Rib pain on right side 786.50 and Fall on or from sidewalk curb E880.1 [place] [address] [place] [id number] [address] [place] [address] Jan, [place] [address] [place] [id number] [address] [place] [address] Jan, Major depressive disorder, r ecurrent episode, in partial or unspecified remission 296.35 and Anxiety state, unspecified 300.00 [facility] [address] [place] [address] AVE [id number], [place] [id number] Jan, [facility] [address] [facility] [id number] [address] [place] [address] Jan, Depression, major, recurrent , moderate 296.32 [place] [address] [place] [id number] [address] [place] [address] Jan, Major depression, recurrent 296.30 ; No condition on Princeton II V71.09 and No condition on axis III V71.09 [facility] [id number] [place] [address] [id number] Jan, Drug-induced nausea and vomiting 787.01 [place] [id number] [address] [place] [address] Jan, Depression, major, recurrent , moderate 296.[address] [id number] [address] [place] [address] Dec, Depression, major, recurrent , moderate 296.32 [facility] [address] [facility] [id number] [place] [address] [id number] Dec, Morbid obesity 278.01 ; Metabolic syndro me 277.7 ; Hyperlipemia 272.4 ; Benign essential hypertension 401.1 ; Dietary counseling V65.3 ; Exercise counseling V65.41 and Inflamed skin tag 701.[address] [id number] [address] [place] [address] Dec, Depression, major, recurrent , moderate 296.32 [place] [id number] [address] [place] [address] Dec, [place] [id number] [address] [place] [address] Dec, Major depression, recurrent 296.30 ; Anxiety, generalized 300.02 and No condition on Princeton II V71.[address] [id number] [address] [place] [address] Dec, Depression, major, recurrent , moderate 296.32 [place] [id number] [address] [place] [address] Dec, Major depressive disorder, r ecurrent episode, moderate 296.32 [place] [id number] [address] [place] [address] Dec, Depression, major, recurrent , moderate 296.32 [facility] [address] [address] Dec, Depression, major, recurrent , moderate 296.32 [place] [address] [address] Dec, Depression, major, recurrent , moderate 296.32 [place] [address] [address] Dec, Depression, major, recurrent , moderate 296.32 [place] [address] [address] Nov, Depression, major, recurrent , moderate 296.32 [place] [address] [address] Nov, Major depression 296.20 ; So cial phobia 300.23 and No condition on Princeton II V71.09 [place] [address] [address] Nov, Depression, major, recurrent , moderate 296.[address] [address] Nov, Major depressive disorder, r ecurrent episode, moderate 296.32 and Generalized anxiety disorder 300.02 [place] [address] [address] Nov, Depression, major, recurrent , moderate 296.32 [place] [address] [address] Nov, Depression, major, recurrent , moderate 296.[address] [address] October, Generalized anxiety disorder 300.02 ; No condition on Princeton II V71.09 and Major depressive disorder, recurrent 296.30 [place] [address] [address] Sep, [facility] [address] [id number] [facility] [place] [address] 13 Sep, 2014 [facility] [address] [id number] [facility] [place] [address] 24 Aug, 2014 [facility] [address] [id number] [facility] [place] [address] 24 Aug, 2014 [facility] [address] [id number] [address] [place] [address], [place] [address] 23 Aug, 2014 [facility] [address] [id number] [address] [place] [address], [place] [address] 23 Aug, 2014 [facility] [address] [id number] [address] [place] [address], [place] [address] 20 Aug, 2014 [facility] [address] [id number] [address] [place] [address], [place] [address] 20 Aug, 2014 [facility] [address] [id number] [address] [place] [address], [place] [address] 20 Aug, 2014 [facility] [address] [id number] [address] [place] [address], [place] [address] 20 Aug, 2014 [facility] [address] [id number] [address] [place] [address], [place] [address] 13 Aug, 2014 [facility] [address] [id number] [address] [place] [address], [place] [address] 13 Aug, 2014 [facility] [address] [id number] [address] [place] [address], [place] [address] 13 Aug, 2014 [facility] [address] [id number] [address] [place] [address], [place] [address] 13 Aug, 2014 [facility] [address] [id number] [address] [place] [address], [place] [address] 12 Aug, 2014 [facility] [address] [id number] [address] [place] [address], [place] [address] 12 Aug, 2014 [facility] [address] [id number] [address] [place] [address], [place] [address] Aug, [facility] [address] [id number] [address] [place] [address], [place] [address] Aug, [facility] [address] [id number] [address] [place] [address], [place] [address] Aug, [facility] [address] [id number] [address] [place] [address], [place] [address] Aug, [facility] [address] [id number] [address] [place] [address], [place] [address] Jul, [facility] [address] [id number] [address] [place] [address], [place] [address] Jul, [facility] [address] [id number] [address] [place] [address], [place] [address] Jul, [facility] [address] [id number] [address] [place] [address], [place] [address] Jul, [facility] [address] [id number] [address] [place] [address], [place] [address] Jul, [facility] [address] [id number] [address] [place] [address], [place] [address] Jul, [facility] [address] [id number] [address] [place] [address], [place] [address] Jun, [facility] [address] [id number] [address] [place] [address], [place] [address] Jun, [facility] [address] [id number] [address] [place] [address], [place] [address] Jun, [facility] [address] [id number] [address] [place] [address], [place] [address] Jun, [facility] [address] [id number] [address] [place] [address], [place] [address] Jun, [facility] [address] [id number] [address] [place] [address], [place] [address] Jun, [facility] [address] [id number] [address] [place] [address], [place] [address] Jun, [facility] [address] [id number] [address] [place] [address], [place] [address] Jun, [facility] [address] [id number] [address] [place] [address], [place] [address] Jun, [facility] [address] [id number] [address] [place] [address], [place] [address] Jun, [facility] [address] [id number] [address] [place] [address], [place] [address] Jun, [facility] [address] [id number] [address] [place] [address], [place] [address] Jun, [facility] [address] [id number] [place], [facility] [id number] Jun, [facility] [address] [id number] [address] [place] [address], [place] [address] Jun, [facility] [address] [id number] [address] [place] [address], [place] [address] Jun, [facility] [address] [id number] [address] [place] [address], [place] [address] Jun, [facility] [address] [id number] [address] [place] [address], [place] [address] May, [facility] [address] [id number] [address] [place] [address], [place] [address] May, [facility] [address] [id number] [address] [place] [address], [place] [address] May, [facility] [address] [id number] [address] [place] [address], [place] [address] May, [facility] [address] [id number] [address] [place] [address], [place] [address] Apr, [facility] [address] [id number] [address] [place] [address], [place] [address] Apr, [facility] [address] [id number] [address] [place] [address], [place] [address] Apr, [facility] [address] [id number] [address] [place] [address], [place] [address] Apr, [facility] [address] [id number] [address] [place] [address], [place] [address] Apr, [facility] [address] [id number] [address] [place] [address], [place] [address] Apr, [facility] [address] [id number] [address] [place] [address], [place] [address] Apr, [facility] [address] [id number] [address] [place] [address], [place] [address] Apr, [facility] [address] [id number] [address] [place] [address], [place] [address] Apr, [facility] [address] [id number] [address] [place] [address], [place] [address] Apr, [facility] [address] [id number] [address] [place] [address], [place] [address] Apr, [facility] [address] [id number] [address] [place] [address] Apr, [facility] [address] [id number] [address] [place] [address] Apr, [facility] [address] [id number] [address] [place] [address] Apr, [facility] [address] [id number] [address] [place] [address], [place] [address] Apr, [facility] [address] [id number] [address] [place] [address], [place] [address] Apr, [facility] [address] [id number] [address] [place] [address] Apr, [facility] [address] [id number] [address] [place] [address] Apr, [facility] [address] [id number] [address] [place] [address], [place] [address] Apr, [facility] [address] [id number] [address] [place] [address], [place] [address] Apr, [facility] [address] [id number] [address] [place] [address], [place] [address] Mar, [facility] [address] [id number] [address] [place] [address], [place] [address] Mar, [facility] [address] [id number] [address] [place] [address], [place] [address] Mar, [facility] [address] [id number] [address] [place] [address], [place] [address] Mar, [facility] [address] [id number] [address] [place] [address], [place] [address] Mar, [facility] [address] [id number] [address] [place] [address], [place] [address] Mar, [facility] [address] [id number] [address] [place] [address], [place] [address] Mar, [facility] [address] [id number] [address] [place] [address], [place] [address] Mar, [facility] [address] [id number] [address] [place] [address], [place] [address] Mar, [facility] [address] [id number] [address] [place] [address] Mar, [facility] [address] [id number] [address] [place] [address], [place] [address] Feb, [facility] [address] [id number] [address] [place] [address], [place] [address] Feb, [facility] [address] [id number] [address] [place] [address], [place] [address] Feb, [facility] [address] [id number] [facility] [place] [address] Feb, [facility] [address] [id number] [facility] [place] [address] Jan, [facility] [address] [id number] [facility] [place] [address] Jan, [facility] [address] [id number] [facility] [place] [address] Jan, [facility] [address] [id number] [facility] [place] [address] Jan, [facility] [address] [id number] [address] [place] [address], [place] [address] Jan, [facility] [address] [id number] [address] [place] [address], [place] [address] Jan, [facility] [address] [id number] [address] [place] [address], [place] [address] Dec, [facility] [address] [id number] [address] [place] [address], [place] [address] Dec, [facility] [address] [id number] [address] [place] [address], [place] [address] Nov, [facility] [address] [id number] [address] [place] [address], [place] [address] Nov, [facility] [address] [id number] [address] [place] [address], [place] [address] Nov, [facility] [address] [id number] [address] [place] [address], [place] [address] Nov, [facility] [address] [id number] [address] [place] [address], [place] [address] Nov, [facility] [address] [id number] [address] [place] [address], [place] [address] Nov, [facility] [address] [id number] [address] [place] [address], [place] [address] Sep, [facility] [address] [id number] [facility] [place] [address] Sep, [facility] [address] [id number] [address] [place] [address], [place] [address] Sep, [facility] [address] [id number] [address] [place] [address], [place] [address] Sep, [facility] [address] [id number] [address] [place] [address], [place] [address] Aug, [facility] [address] [id number] [address] [place] [address], [place] [address] Aug, [facility] [address] [id number] [address] [place] [address], [place] [address] Jul, [facility] [address] [id number] [address] [place] [address], [place] [address] Jul, [facility] [address] [id number] [address] [place] [address], [place] [address] Jun, [facility] [address] [id number] [address] [place] [address], [place] [address] Jun, [facility] [address] [id number] [address] [place] [address], [place] [address] Jun, [facility] [address] [id number] [address] [place] [address], [place] [address] Jun, [facility] [address] [id number] [address] [place] [address], [place] [address] May, [facility] [address] [id number] [address] [place] [address], [place] [address] May, [facility] [address] [id number] [address] [place] [address], [place] [address] May, [facility] [address] [id number] [address] [place] [address], [place] [address] May, [facility] [address] [id number] [address] [place] [address], [place] [address] May, [facility] [address] [id number] [address] [place] [address], [place] [address] May, [facility] [address] [id number] [address] [place] [address], [place] [address] Apr, [facility] [address] [id number] [address] [place] [address], [place] [address] Apr, [facility] [address] [id number] [address] [place] [address], [place] [address] Apr, [facility] [address] [id number] [address] [place] [address], [place] [address] Apr, [facility] [address] [id number] [address] [place] [address], [place] [address] Mar, [facility] [address] [id number] [address] [place] [address], [place] [address] Mar, [facility] [address] [id number] [address] [place] [address], [place] [address] Mar, [facility] [address] [id number] [address] [place] [address], [place] [address] Mar, [facility] [address] [id number] [address] [place] [address], [place] [address] Feb, [facility] [address] [id number] [id number] Jan, [facility] [address] [id number] [address] [place] [address], [place] [address] Jan, [facility] [address] [id number] [address] [place] [address], [place] [address] Dec, [facility] [address] [id number] [address] [place] [address], [place] [address] Dec, [facility] [address] [id number] [address] [place] [address], [place] [address] Dec, [facility] [address] [id number] [place] [id number] Dec, 2012 [facility] [address] [facility] [id number] [address] [place] [address] 17 Nov, 2012 [facility] [address] [facility] [id number] [address] [place] [address] Nov, [facility] [address] [facility] [id number] [address] [place] [address] Nov, [facility] [address] [facility] [id number] [address] [place] [address] Nov, [facility] [address] [facility] [id number] [address] [place] [address] Nov, [facility] [address] [facility] [id number] [address] [place] [address] October, [facility] [address] [facility] [id number] [address] [place] [address] October, [facility] [address] [facility] [id number] [address] [place] [address] Aug, [facility] [address] [facility] [id number] [address] [place] [address] Nov, IMMUNIZATIONS No Known Immunizations SOCIAL HISTORY Never Assessed REASON FOR VISIT PLAN OF CARE VITAL SIGNS MEDICATIONS Unknown Medications RESULTS No Results PROCEDURES Procedure Date Ordered Result Body Site COMPREHENSIVE CARE MANAGEMENT Jul 08, 2014 INSTRUCTIONS MEDICATIONS ADMINISTERED No Known Medications [...] Hospitalization History gastric sleeve Hospitalization History [facility] Trouble with left shoulder blade 08/2017
--- OUTSIDE RECORDS SUMMARY | 2019-11-29 09:05 | XMS REPORT ---
Author Author Curt DIAZ Organization [facility] Address [address] [place] [address] Care Team Providers Care Upper Inspector Name Role Phone JOE CHRIS Unavailable PROBLEMS Type Condition ICD9-CM Code YDB54-RP Code Onset Dates Condition S tatus SNOMED Code Problem Insomnia G47.00 Active 220294100 Problem Hyperlipemia E78.5 Active 6859085 4 Problem Morbid obesity E66.01 Active 00996 6002 Problem Benign essential hypertension I10 Active 4904005 Problem Renal insufficiency N28.9 Active 174235227 Problem Edema R60.9 Active 336577278 Problem Severe episode of recurrent major depressive disorder, without psychotic features F33.2 Active 29682459 Problem Metabolic syndrome E88.81 Active 2 67745607 Problem DANIELA (generalized anxiety disorder) F41.1 Active 54201917 Problem BMI 45.0-49.9, adult Z68.42 Active 053088738 Problem Sciatica, right side M54.31 Active 829776504835287 Problem Hammer toe of second toe of right foot M20.41 Active 399462268 Problem Mixed obsessional thoughts and acts F42.2 Active 56380388 Problem Hammer toe of right foot M20.41 Activ e 861468462 Problem Vitamin D deficiency E55.9 Active 46070378 Problem Chronic fatigue R53.82 Active 8422 9001 Problem Other chronic pain G89.29 Active 8 1590282 Problem Borderline personality disorder F60.3 Active 92474689 Problem Callous ulcer, limited to breakdown of skin L98.49 1 Active ALLERGIES No Information ENCOUNTERS Encounter Location Date Diagnosis [facility] [address] [facility] [id number] [place] [id number] Jun, [facility] [address] [facility] [id number] [address] [place] [id number] Mar, [facility] [address] [facility] [id number] [address] [place] [address] Feb, [facility] [id number] [place] [id number] Feb, [facility] [address] [facility] [id number] [address] [place] [address] Feb, [facility] [address] [facility] [id number] [address] [place] [phone] Feb, DANIELA (generalized anxiety dis order) F41.1 ; Severe episode of recurrent major depressive disorder, without psychotic features F33.2 ; Mixed obsessional thoughts and acts F42.2 and Borderline personality disorder F60.3 [facility] [address] [facility] [id number] [address] [place] [address] Feb, [facility] [address] [facility] [id number] [address] [place] [address] Jan, [facility] [address] [facility] [id number] [address] [place] [phone] Jan, [facility] [address] [facility] [id number] [address] [place] [phone] Jan, [facility] [id number] [place] [id number] Jan, Callus of heel L84 ; Fissure in skin R23 .4 and Hammer toe of second toe of right foot M20.41 [facility] [id number] [place] [phone] Jan, [facility] [address] [facility] [id number] [address] [place] [phone] Jan, [facility] [address] [facility] [id number] [address] [place] [phone] Jan, [facility] [address] [facility] [id number] [address] [place] [phone] Jan, Severe episode of recurrent major depressive disorder, without psychotic features F33.2 ; DANIELA (generalized anxiety disorder) F41.1 ; Mixed obsessional thoughts and acts F42.2 and Borderline personality disorder F60.3 [facility] [address] [facility] [id number] [address] [place] [address] Jan, [facility] [address] [facility] [address] [id number][place] [id number] Jan, Benign essential hypertension I10 [id number] [place] [address] [id number] Dec, Callous ulcer, limited to breakdown of s kin L98.491 and Morbid obesity E66.01 [facility] [address] [facility] [id number] [address] [place] [phone] Dec, [facility] [address] [facility] [id number] [address] [place] [phone] Dec, [facility] [address] [facility] [id number] [address] [place] [address] Dec, [facility] [address] [facility] [id number] [address] [place] [phone] Dec, [facility] [address] [place] [id number] [address] [place] [phone] Dec, Severe episode of recurrent major depressive disorder, without psychotic features F33.2 [facility] [address] [facility] [id number] [address] [place] [phone] Dec, DANIELA (generalized anxiety dis order) F41.1 ; Severe episode of recurrent major depressive disorder, without psychotic features F33.2 ; Mixed obsessional thoughts and acts F42.2 and 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 [id number][place] [id number] Dec, Morbid obesity E66.01 [facility] [address] [facility] [id number] [address] [place] [phone] Dec, [facility] [address] [facility] [id number] [address] [place] [address] Dec, [facility] [address] [phone] Nov, [facility] [address] [id number], [place] [id number] Nov, [facility] [address] [facility] [id number] [address] [place] [address] Nov, [facility] [address] [facility] [id number] [address] [place] [address] Nov, [facility] [address] [facility] [id number] [address] [place] [address] Nov, DANIELA (generalized anxiety dis order) F41.1 ; Severe episode of recurrent major depressive disorder, without psychotic features F33.2 ; Mixed obsessional thoughts and acts F42.2 and 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 [facility] [id number][place] [id number] Nov, Morbid obesity E66.01 [facility] [address] [facility] [id number] [address] [place] [phone] Nov, [facility] [address] [facility] [id number] [address] [place] [address] Nov, DANIELA (generalized anxiety dis order) F41.1 ; Mixed obsessional thoughts and acts F42.2 ; Severe episode of recurrent major depressive disorder, without psychotic features F33.2 and 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 [facility] [address] [facility] [address] [id number], [place] [id number] October, Morbid obesity E66.01 [place] [address] [facility] [address] [id number], [place] [id number] October, Benign essential hypertension I10 and Mo rbid obesity E66.[address] [facility] [address] [facility] [address] [id number], [place] [id number] October, [facility] [address] [facility] [id number] [address] [place] [phone] October, Severe episode of recurrent major depressive disorder, without psychotic features F33.[address] [facility] [address] [id number], [place] [id number] October, Morbid obesity E66.[address] [facility] [place] [address] [facility] [address] [id number], [place] [id number] October, [facility] [address] [facility] [id number] [address] [place] [address] October, Severe episode of recurrent major depressive disorder, without psychotic features F33.2 ; DANIELA (generalized anxiety disorder) F41.1 ; Mixed obsessional thoughts and acts F42.2 and 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 [id number], [place] [id number] October, Morbid obesity E66.01 [facility] [address] [place] [id number] [address] [place] [address] [id number] Sep, Dental examination Z01.[address] [facility] [id number], [place] [id number] Sep, [facility] [address] [place] [address] Sep, Sore in mouth K13.79 and Mor bid obesity E66.01 [facility] [address] [facility] [id number] [address] [place] [address] Sep, Dental examination Z01.20 [facility] [address] [place] [address] Sep, Anxiety disorder, unspecifie d F41.[address] [facility] [address] [place] [address] AVE [id number], [place] [id number] Sep, Mouth ulcer K12.[address] [facility] [id number], [place] [id number] Sep, Morbid obesity E66.[address] [id number], [place] [id number] Sep, Allergic rhinitis, unspecified seasonali ty, unspecified trigger J30.9 and Shortness of breath R06.[address] [id number], [place] [id number] Sep, 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 [id number], [place] [id number] Aug, Mouth abscess K12.2 ; Mouth ulcer K12.1 ; Bloating R14.0 and Morbid obesity E66.[address] [id number], [place] [id number] Aug, [address] [id number], [place] [id number] Aug, [address] [id number], [place] [id number] Jul, Major depressive disorder, recurrent, mo derate F33.1 ; Abscess of arm, left L02.414 ; BMI 45.0-49.9, adult Z68.42 and Morbid obesity E66.[address] [id number], [place] [id number] Jul, [address] [id number], [place] [id number] Jul, [address] [id number], [place] 483[address] Jun, Pain in right knee M25.561 and Other chr onic pain G89.[address] [id number], [place] [id number] Jun, Benign essential hypertension I10 ; BMI 45.0-49.9, adult Z68.42 ; Morbid obesity E66.01 ; Vitamin D deficiency E55.9 ; Insomnia G47.00 ; 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 ; Edema R60.9 ; Recurrent major depressive disorder, in partial remission F33.41 ; Chronic fatigue R53.82 ; Acute pain of right knee M25.561 ; Metabolic syndrome E88.81 and Irritable mood R45.[address] [id number] [address] [place] [address] Jun, [facility] [place] [address] [id number], [place] [id number] Jun, Irritable mood R45.4 [facility] [address] [facility] [id number] [address] [place] [address] May, [facility] [address] [facility] [id number] [address] [place] [phone] May, [facility] [address] [facility] [id number] [address] [place] [address] May, Recurrent major depressive d isorder, in partial remission F33.41 ; Mixed obsessional thoughts and acts F42.2 ; 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 and BMI 45.0-49.9, adult Z68.42 [facility] [address] [facility] [id number] [address] [place] [address] Apr, [facility] [address] [facility] [id number] [address] [place] [address] Apr, [facility] [address] [facility] [id number] [address] [place] [address] Apr, [facility] [address] [facility] [id number] [address] [place] [address] Apr, [facility] [address] [facility] [id number] [address] [place] [address] Mar, Mixed obsessional thoughts a nd acts F42.2 ; Recurrent major depressive disorder, in partial remission F33.41 ; DANIELA (generalized anxiety disorder) F41.1 and BMI 45.0-49.9, adult Z68.[address] [facility] [address] [id number], [place] [id number] Mar, [facility] [address] [id number], [place] [id number] Mar, BMI 45.0-49.9, adult Z68.42 ; Instabilit y of right knee joint M25.361 and Rash R21 [facility] [address] [facility] [id number] [address] [place] [address] Jan, Recurrent major depressive d isorder, in partial remission F33.41 ; Mixed obsessional thoughts and acts F42.2 and BMI 45.0-49.9, adult Z68.[address] [facility] [place] [address] [id number], [place] [id number] Jan, [facility] [place] [address] [id number], [place] [id number] Jan, Benign essential hypertension I10 ; BMI 45.0-49.9, adult Z68.42 ; Metabolic syndrome E88.81 and Allergic rhinitis, unspecified seasonality, unspecified trigger J30.9 [place] [address] [place] [id number] [address] [place] [phone] Dec, DANIELA (generalized anxiety dis order) F41.1 and Depressive disorder, not elsewhere classified F32.[address] [facility] [address] [id number], [place] [id number] Dec, Recurrent major depressive disorder, in partial remission F33.[address] [facility] [address] [id number], [place] [id number] Dec, [facility] [id number], [place] [id number] Nov, [facility] [address] [id number], [place] [id number] Nov, Recurrent major depressive disorder, in partial remission F33.41 [place] [address] [facility] [id number] [address] [place] [address] Nov, Recurrent major depressive d isorder, in partial remission F33.41 ; Mixed obsessional thoughts and acts F42.2 ; DANILEA (generalized anxiety disorder) F41.1 and BMI 45.0-49.9, adult Z68.[address] [facility] [address] [id number], [place] [id number] Nov, [facility] [address] [id number], [place] [id number] Nov, Other conjunctivitis of both eyes H10.89 and Sciatica, right side M54.31 [facility] [address] [id number], [place] [id number] Nov, [facility] [address] [id number], [place] [id number] Nov, [facility] [address] [id number], [place] [id number] October, [facility] [id number], [place] [id number] October, [facility] [address] [facility] [id number] [address] [place] [address] October, BMI 45.0-49.9, adult Z68.42 ; Mixed obsessional thoughts and acts F42.2 ; Recurrent major depressive disorder, in partial remission F33.41 and DANIELA (generalized anxiety disorder) F41.[address] [facility] [address] [id number], [place] [id number] October, Benign essential hypertension I10 ; Morb id obesity E66.01 and BMI 45.0-49.9, adult Z68.[address] [facility] [address] [id number], [place] [id number] Sep, [facility] [address] [id number], [place] [id number] Sep, [facility] [place] [address] [id number], [place] [id number] Sep, [facility] [id number], [place] [id number] Sep, Hospital discharge follow-up Z09 ; Aller gic rhinitis, unspecified seasonality, unspecified trigger J30.9 and Shortness of breath R06.[address] [facility] [address] [id number], [place] [id number] Sep, Recurrent major depressive disorder, in partial remission F33.41 [facility] [address] [id number], [place] [id number] Aug, Irritable mood R45.4 [place] [address] [facility] [id number] [address] [place] [phone] Aug, [place] [id number] [place] [address] [id number] Jul, Benign essential hypertension I10 ; Robert a R60.9 and Impacted cerumen of left ear H61.22 [place] [address] [facility] [id number] [address] [place] [phone] 14 Jul, 2017 Major depression F32.9 ; Rec urrent major depressive disorder, in partial remission F33.41 and Anxiety F41.9 [place] [address] [facility] [id number] [address] [place] [address] Jun, Major depression F32.9 ; Rec urrent major depressive disorder, in partial remission F33.41 and Anxiety F41.[address] [place] [address] [id number], [place] [id number] Jun, Major depression F32.9 ; Morbid obesity E66.01 ; Irritable mood R45.4 ; Hand weakness R29.898 and Vitamin D deficiency E55.9 [facility] [address] [id number], [place] [id number] Jun, [facility] [address] [id number], [place] [id number] May, Major depression F32.9 [place] [address] [facility] [id number] [address] [place] [address] May, Major depression F32.9 [facility] [address] [id number], [place] [id number] May, BMI 50.0-59.9, adult Z68.43 ; Major depr ession F32.9 ; Anxiety F41.9 ; Hypertrophic toenail L60.2 and Pain of left great toe M79.[address] [facility] [address] [id number], [place] [id number] May, Recurrent major depressive disorder, in partial remission F33.41 [facility] [address] [facility] [id number] [address] [place] [address] Apr, [facility] [address] [id number], [place] [id number] Apr, [facility] [address] [facility] [id number] [address] [place] [address] Apr, Major depression F32.[address] [id number] [place] [address] [id number] Apr, Severe episode of recurrent major depres sive disorder, without psychotic features F33.2 ; Anxiety F41.9 and Insomnia G47.[address] [place] [address] [id number], [place] [id number] Apr, [facility] [address] [facility] [id number] [address] [place] [address] Apr, [facility] [address] [id number] [place] [address] [id number] Apr, [facility] [address] [id number], [place] [id number] Mar, [facility] [id number] [place] [address] [id number] Mar, Allergic conjunctivitis of both eyes H10 .13 [facility] [address] [facility] [id number] [address] [place] [address] Mar, Major depression F32.9 [facility] [address] [id number], [place] [id number] Mar, Metabolic syndrome E88.81 ; History of g astric bypass Z98.890 ; Benign essential hypertension I10 ; Allergic conjunctivitis of both eyes H10.13 and Morbid obesity E66.01 [facility] [address] [facility] [id number] [address] [place] [address] Mar, Major depression F32.9 [place] [address] [facility] [address] [id number], [place] [id number] Feb, [facility] [address] [facility] [id number] [address] [place] [address] Feb, Major depression F32.[address] [id number] [place] [address] [id number] Feb, Subacute maxillary sinusitis J01.00 and Bronchitis J40 [place] [address] [place] [id number] [address] [place] [address] Feb, Major depressive disorder, r ecurrent, moderate F33.[address] [id number], [place] [id number] Jan, [address] [id number] [place] [address] [id number] Jan, Acute non-recurrent maxillary sinusitis J01.00 and Skin tag L91.[address] [id number] [place] [address] [id number] Jan, Cough R05 and Sinus congestion R09.[address] [id number] [place] [address] [id number] Jan, [address] [id number] [place] [address] [id number] Jan, Benign essential hypertension I10 ; Hist ory of gastric bypass Z98.890 and Nausea and vomiting in adult R11.2 [place] [address] [facility] [id number] [address] [place] [address] Jan, Major depressive disorder, r ecurrent, moderate F33.1 [facility] [address] [facility] [id number] [address] [place] [phone] Dec, Insomnia G47.00 ; Recurrent major depressive disorder, in partial remission F33.41 and Morbid obesity E66.01 [place] [address] [facility] AV [id number], [place] [id number] Dec, [address] [id number], [place] [id number] Dec, Chronic bacterial conjunctivitis of left eye H10.[address] [id number], [place] [id number] Nov, [address] [id number], [place] [id number] Nov, Dental examination Z01.[address] [id number] [place] [address] [id number] Nov, Benign essential hypertension I10 ; Hist ory of gastric bypass Z98.890 and Nausea and vomiting in adult R11.[address] [phone] Nov, Major depressive disorder, r ecurrent, moderate F33.1 ; Generalized anxiety disorder F41.1 and Insomnia due to other mental disorder F51.05 [place] [id number] [place] [phone] Nov, Recurrent major depressive d isorder, in partial remission F33.41 ; Insomnia G47.00 and Morbid obesity E66.01 [facility] [address] [place] [id number] [place] [address] S [id number] October, Abscess of left arm L02.414 [place] [address] [place] [id number] [place] [phone] October, Morbid obesity E66.01 ; Lida r depression F32.9 and Recurrent major depressive disorder, in partial remission F33.41 [place] [address] [facility] [id number] [id number] Sep, Benign essential hypertension I10 ; Morb id obesity E66.01 ; S/P gastric bypass Z98.84 ; Abscess L02.91 and Chronic bacterial conjunctivitis of left eye H10.[address] [place] [id number] [id number] Sep, Dental examination Z01.20 [place] [address] [place] [phone] Sep, Morbid obesity E66.01 ; Lida r depression F32.9 and Recurrent major depressive disorder, in partial remission F33.41 [place] [address] [place] [id number] Jul, [place] [address] [place] [id number] [place] [phone] Jul, Major depressive disorder, r ecurrent, moderate F33.1 [place] [address] [place] [id number] [place] [phone] Jul, Major depressive disorder, r ecurrent, moderate F33.1 and Generalized anxiety disorder F41.[address] [address] [id number], [place] [id number] Jul, Cough R05 [place] [address] [place] [id number] [address] [place] [address] Jul, Morbid obesity E66.01 ; Lida r depression F32.9 and Recurrent major depressive disorder, in partial remission F33.41 [facility] [address] [id number], [place] [id number] Jul, [place] [address] [id number], [place] [id number] Jul, [place] [address] [id number], [place] [id number] Jul, Gastroenteritis K52.9 and Cough R[address] [id number], [place] [id number] Jun, Acute bacterial conjunctivitis of left e ye H10.32 [place] [address] [place] [address] Jun, [place] [address] [facility] [id number] [address] [place] [address] Jun, Recurrent major depressive d isorder, in partial remission F33.41 [place] [address] [facility] [id number] [address] [place] [address] May, Major depression F32.9 and M orbid obesity E66.01 [place] [address] [facility] [id number] [address] [place] [address] May, [address] [id number] [place] [address] [id number] May, Thrush B37.0 [place] [address] [facility] [id number] [address] [place] [address] Apr, Major depressive disorder, r ecurrent, moderate F33.1 [place] [address] [address] Apr, Insomnia G47.00 ; Major depr ession F32.9 and Recurrent major depressive disorder, in partial remission F33.41 [place] [address] [address] Apr, [place] [address] [facility] [id number] [address] [place] [address] 02 Apr, 2016 Major depression F32.9 and R ecurrent major depressive disorder, in partial remission F33.[address] [id number] [place] [address] [id number] Mar, Benign essential hypertension I10 ; Morb id obesity E66.01 ; Impacted cerumen of both ears H61.23 ; Laceration of finger of right hand, initial encounter S61.219A and Encounter for immunization Z23 [place] [address] [facility] [id number] [address] [place] [address] 17 Mar, 2016 [place] [address] [place] [id number] [address] [place] [address] Mar, [facility] [address] [facility] [id number] [address] [place] [address] Mar, [facility] [address] [id number], [place] [id number] Feb, Nausea R11.0 ; Blood in the stool K92.1 and Benign essential hypertension I10 [facility] [address] [facility] [id number] [address] [place] [address] Feb, Major depression F32.9 and R ecurrent major depressive disorder, in partial remission F33.41 [facility] [address] [id number], [place] [id number] Feb, [facility] [address] [id number], [place] [id number] Feb, Recurrent major depressive disorder, in partial remission F33.41 [facility] [address] [id number], [place] [id number] Jan, [facility] [address] [id number], [place] [id number] Jan, Benign essential hypertension I10 ; Robert a R60.9 and Hyperlipidemia, unspecified hyperlipidemia type E78.5 [facility] [address] [id number], [place] [id number] Jan, Recurrent major depressive disorder, in partial remission F33.41 [facility] [address] [id number] [place] [id number] Jan, [facility] [address] [id number], [place] [id number] Jan, [facility] [address] [id number], [place] [id number] Jan, [facility] [address] [facility] [id number] [address] [place] [address] Jan, [facility] [address] [facility] [id number] [address] [place] [address] Dec, [facility] [address] [facility] [id number] [address] [place] [address] Nov, [facility] [address] [facility] [id number] [address] [place] [address] Nov, Major depression F32.9 [facility] [address] [facility] [id number] [address] [place] [address] Nov, [facility] [address] [facility] [id number] [address] [place] [address] Nov, [facility] [address] [facility] [id number] [address] [place] [address] Nov, Major depressive disorder, r ecurrent episode, mild F33.0 and Anxiety F41.[address] [id number] [place] [address] [id number] Nov, [place] [id number] [place] [address] [id number] October, Left elbow pain M25.522 and Other season al allergic rhinitis J30.[address] [place] [id number] [place] [address] [id number] October, [facility] [address] [facility] [id number] [address] [place] [address] October, Major depressive disorder, r ecurrent, moderate F33.1 [facility] [address] [facility] [id number] [address] [place] [address] October, Major depression F32.9 [facility] [address] [facility] [id number] [address] [place] [address] Sep, [place] or callus L84 and Onych omycosis B35.1 [place] [address] [facility] [id number] [address] [place] [address] Sep, Major depressive disorder, r ecurrent, moderate F33.1 [place] [address] [facility] [id number] [address] [place] [address] Sep, Major depression F32.9 [facility] [address] [facility] [id number] [address] [place] [address] Sep, Moderate episode of recurren t major depressive disorder F33.1 [facility] [address] [facility] [address] [id number], [place] [id number] Sep, Muscle strain T14.8 [facility] [address] [facility] [id number] [address] [place] [address] Aug, Major depression F32.9 [facility] [address] [facility] [id number] [address] [place] [address] Aug, Major depression F32.9 [place] [address] [facility] [id number] [address] [place] [address] Jul, Morbid obesity E66.01 and Ma cora depression F32.9 [facility] [address] [facility] [id number] [address] [place] [address] Jul, Depression, major, recurrent , moderate F33.1 [facility] [address] [facility] [address] [id number], [place] [id number] Jul, [facility] [address] [facility] [id number] [address] [place] [address] Jul, [facility] [address] [facility] [id number] [address] [place] [address] Jul, Major depression F32.9 and M orbid obesity E66.01 [facility] [address] [place] [address] AVE [id number], [place] [id number] Jul, Type II diabetes mellitus E11.9 ; Callus of foot L84 ; Benign essential hypertension I10 and Renal insufficiency N28.9 [facility] [address] [facility] [id number] [address] [place] [phone] 09 Jul, 2015 Depression, major, recurrent , moderate F33.1 [facility] [address] [facility] [id number] [address] [place] [phone] 05 Jul, 2015 Major depression F32.9 [facility] [address] [facility] [id number] [address] [place] [address] Jul, [place] [address] [facility] [id number] [address] [place] [phone] Jun, Major depression F32.9 [place] [address] [facility] [id number] [address] [place] [address] Jun, Major depressive disorder, r ecurrent, moderate F33.1 [place] [address] [facility] [id number] [address] [place] [address] Jun, [place] [address] [place] [id number] [place] [address] Jun, Major depressive disorder, r ecurrent, moderate F33.1 and Major depression F32.[address] [place] [id number] [place] [address] [id number] Jun, Type II diabetes mellitus E11.9 [place] [address] [place] [id number] [address] [place] [address] Jun, Depression, major, recurrent , moderate F33.1 [place] [address] [place] [id number] [address] [place] [address] May, Major depressive disorder, r ecurrent, moderate F33.1 [place] [address] [place] [address] May, [facility] [address] [id number], [place] [id number] May, Edema R60.9 [place] [address] [facility] [id number] [address] [place] [address] May, Insomnia G47.00 and Major de pression F32.9 [facility] [address] [id number], [place] [id number] May, Morbid obesity E66.01 ; Edema R60.9 ; Sh ortness of breath R06.02 ; Benign essential hypertension I10 and Renal insufficiency N28.9 [facility] [address] [facility] [address] [id number], [place] [id number] May, Hyperlipemia 272.4 and Renal insufficien cy N28.9 [place] [address] [facility] [id number] [address] [place] [address] Apr, Major depression F32.9 [place] [address] [facility] [id number] [address] [place] [address] Apr, [place] [address] [facility] [id number] [address] [place] [address] Apr, Major depressive disorder, r ecurrent, moderate F33.[id number] [place] [address] [id number] Apr, Type II diabetes mellitus E11.9 ; Benign essential hypertension I10 ; Edema R60.9 and Renal insufficiency N28.9 [place] [address] [facility] [id number] [address] [place] [address] Mar, Major depressive disorder, r ecurrent, moderate F33.1 [place] [address] [facility] [id number] [address] [place] [address] Mar, [place] [address] [facility] [id number] [address] [place] [address] Mar, Major depression F32.[id number] [place] [address] [id number] Mar, Morbid obesity E66.01 ; Benign essential hypertension I10 and Type II diabetes mellitus E11.9 [place] [address] [facility] [id number] [address] [place] [address] Feb, Major depressive disorder, r ecurrent, moderate F33.1 [place] [address] [facility] [id number] [address] [place] [address] Feb, Major depressive disorder, r ecurrent episode, in partial or unspecified remission 296.35 ; Anxiety state, unspecified 300.00 and Morbid obesity 278.01 [facility] [address] [place] [address] Feb, [address] [id number] [place] [address] [id number] Feb, Vomiting 787.03 and Viral syndrome 079.9 9 [place] [address] [place] [id number] [address] [place] [address] Feb, Major depression, recurrent 296.30 ; Generalized anxiety disorder 300.02 and No condition on [place] II V71.[address] [id number] [place] [address] [id number] Feb, Skin tag 701.9 [place] [address] [place] [id number] [place] [address] Feb, [place] [address] [address] Jan, Depression, major, recurrent , moderate 296.[id number] [place] [address] [id number] Jan, Nausea and vomiting 787.01 ; Rib pain on right side 786.50 and Fall on or from sidewalk curb E880.1 [place] [address] [place] [id number] [address] [place] [address] Jan, [place] [address] [place] [id number] [address] [place] [address] Jan, Major depressive disorder, r ecurrent episode, in partial or unspecified remission 296.35 and Anxiety state, unspecified 300.00 [facility] [address] [place] [address] [id number] [place] [address] [id number] Jan, [place] [address] [place] [id number] [address] [place] [address] Jan, Depression, major, recurrent , moderate 296.32 [place] [address] [place] [id number] [address] [place] [address] 18 Jan, 2015 Major depression, recurrent 296.30 ; No condition on Nor[place] II V71.09 and No condition on axis III V71.[address] [facility] [address] [facility] [address] [id number], [place] [id number] Jan, Drug-induced nausea and vomiting 787.[address] [id number] [address] [place] [address] Jan, Depression, major, recurrent , moderate 296.[address] [id number] [address] [place] [address] Dec, Depression, major, recurrent , moderate 296.[address] [facility] [address] [facility] [address] [id number], [place] [id number] Dec, Morbid obesity 278.01 ; Metabolic syndro me 277.7 ; Hyperlipemia 272.4 ; Benign essential hypertension 401.1 ; Dietary counseling V65.3 ; Exercise counseling V65.41 and Inflamed skin tag 701.[address] [id number] [address] [place] [address] Dec, Depression, major, recurrent , moderate 296.32 [place] [id number] [address] [place] [address] Dec, [place] [id number] [address] [place] [address] Dec, Major depression, recurrent 296.30 ; Anxiety, generalized 300.02 and No condition on [place] II V71.[address] [id number] [address] [place] [address] Dec, Depression, major, recurrent , moderate 296.32 [place] [id number] [address] [place] [address] Dec, Major depressive disorder, r ecurrent episode, moderate 296.32 [place] [id number] [address] [place] [address] Dec, Depression, major, recurrent , moderate 296.32 [place] [address] [address] Dec, Depression, major, recurrent , moderate 296.32 [place] [address] [place] [id number] Dec, Depression, major, recurrent , moderate 296.32 [place] [address] [address] Dec, Depression, major, recurrent , moderate 296.32 [place] [address] [address] Nov, Depression, major, recurrent , moderate 296.32 [place] [address] [address] Nov, Major depression 296.20 ; So cial phobia 300.23 and No condition on [place] II V71.09 [place] [address] [address] Nov, Depression, major, recurrent , moderate 296.32 [place] [address] [address] Nov, Major depressive disorder, r ecurrent episode, moderate 296.32 and Generalized anxiety disorder 300.02 [place] [address] [address] Nov, Depression, major, recurrent , moderate 296.32 [place] [address] [address] Nov, Depression, major, recurrent , moderate 296.32 [place] [id number] October, Generalized anxiety disorder 300.02 ; No condition on [place] II V71.09 and Major depressive disorder, recurrent 296.30 [place] [address] [address] Sep, [facility] [address] [id number] [facility] [address] 13 Sep, 2014 [facility] [address] [id number] [facility] [address] 24 Aug, 2014 [facility] [address] [id number] [facility] [address] 24 Aug, 2014 [facility] [address] [id number] [facility] [address] 23 Aug, 2014 [facility] [address] [id number] [facility] [address] 23 Aug, 2014 [facility] [address] [id number] [address] [place] [address], [place] [address] 20 Aug, 2014 [facility] [address] [id number] [address] [place] [address], [place] [address] 20 Aug, 2014 [facility] [address] [id number] [address] [place] [address], [place] [address] 20 Aug, 2014 [facility] [address] [id number] [address] [place] [address], [place] [address] 20 Aug, 2014 [facility] [address] [id number] [address] [place] [address], [place] [address] 13 Aug, 2014 [facility] [address] [id number] [address] [place] [address], [place] [address] 13 Aug, 2014 [facility] [address] [id number] [address] [place] [address], [place] [address] 13 Aug, 2014 [facility] [address] [id number] [address] [place] [address], [place] [address] 13 Aug, 2014 [facility] [address] [id number] [address] [place] [address], [place] [address] 12 Aug, 2014 [facility] [address] [id number] [address] [place] [address], [place] [address] 12 Aug, 2014 [facility] [address] [id number] [address] [place] [address], [place] [address] Aug, [facility] [address] [id number] [address] [place] [address], [place] [address] Aug, [facility] [address] [id number] [address] [place] [address], [place] [address] Aug, [facility] [address] [id number] [address] [place] [address], [place] [address] Aug, [facility] [address] [id number] [address] [place] [address], [place] [address] Jul, [facility] [address] [id number] [address] [place] [address], [place] [address] Jul, [facility] [address] [id number] [address] [place] [address], [place] [address] Jul, [facility] [address] [id number] [address] [place] [address], [place] [address] Jul, [facility] [address] [id number] [address] [place] [address], [place] [address] Jul, [facility] [address] [id number] [address] [place] [address], [place] [address] Jul, [facility] [address] [id number] [address] [place] [address], [place] [address] Jun, [facility] [address] [id number] [address] [place] [address], [place] [address] Jun, [facility] [address] [id number] [address] [place] [address], [place] [address] Jun, [facility] [address] [id number] [address] [place] [address], [place] [address] Jun, [facility] [address] [id number] [address] [place] [address], [place] [address] Jun, [facility] [address] [id number] [address] [place] [address], [place] [address] Jun, [facility] [address] [id number] [address] [place] [address], [place] [address] Jun, [facility] [address] [id number] [address] [place] [address], [place] [address] Jun, [facility] [address] [id number] [address] [place] [address], [place] [address] Jun, [facility] [address] [id number] [address] [place] [address], [place] [address] Jun, [facility] [address] [id number] [address] [place] [address], [place] [address] Jun, [facility] [address] [id number] [address] [place] [address], [place] [address] Jun, [facility] [address] [id number] [place], [facility] [id number] Jun, [facility] [address] [id number] [address] [place] [address], [place] [address] Jun, [facility] [address] [id number] [address] [place] [address], [place] [address] Jun, [facility] [address] [id number] [address] [place] [address], [place] [address] Jun, [facility] [address] [id number] [address] [place] [address], [place] [address] May, [facility] [address] [id number] [address] [place] [address], [place] [id number] May, [facility] [address] [id number] [address] [place] [address], [place] [id number] May, [facility] [address] [id number] [address] [place] [address], [place] [address] May, [facility] [address] [id number] [address] [place] [address], [place] [address] Apr, [facility] [address] [id number] [address] [place] [address], [place] [address] Apr, [facility] [address] [id number] [address] [place] [address], [place] [address] Apr, [facility] [address] [id number] [address] [place] [address], [place] [address] Apr, [facility] [address] [id number] [address] [place] [address], [place] [address] Apr, [facility] [address] [id number] [address] [place] [address], [place] [address] Apr, [facility] [address] [id number] [address] [place] [address], [place] [address] Apr, [facility] [address] [id number] [address] [place] [address], [place] [address] Apr, [facility] [address] [id number] [address] [place] [address], [place] [address] Apr, [facility] [address] [id number] [address] [place] [address], [place] [address] Apr, [facility] [address] [id number] [address] [place] [address], [place] [address] Apr, [facility] [address] [id number] [address] [place] [address], [place] [id number] Apr, [facility] [address] [id number] [address] [place] [address], [place] [address] Apr, [facility] [address] [id number] [address] [place] [address], [place] [address] Apr, [facility] [address] [id number] [address] [place] [address], [place] [address] Apr, [facility] [address] [id number] [address] [place] [address], [place] [id number] Apr, [facility] [address] [id number] [address] [place] [address], [place] [address] Apr, [facility] [address] [id number] [address] [place] [id number] Apr, [facility] [address] [id number] [address] [place] [address], [place] [address] Apr, [facility] [address] [id number] [address] [place] [id number] Apr, [facility] [address] [id number] [address] [place] [address], [place] [address] Mar, [facility] [address] [id number] [address] [place] [id number] Mar, [facility] [address] [id number] [address] [place] [address], [place] [address] Mar, [facility] [facility] [address] [id number] [address] [place] [address], [place] [address] Mar, [facility] [address] [id number] [address] [place] [address], [place] [address] Mar, [facility] [address] [id number] [address] [place] [address], [place] [address] Mar, [facility] [address] [id number] [address] [place] [address] Mar, [facility] [address] [id number] [address] [place] [address], [place] [address] Mar, [facility] [address] [id number] [address] [place] [id number] Mar, [facility] [address] [id number] [address] [place] [address] Mar, [facility] [address] [id number] [address] [place] [address], [place] [address] Feb, [facility] [address] [id number] [address] [place] [address], [place] [address] Feb, [facility] [address] [id number] [address] [place] [address], [place] [address] Feb, [facility] [address] [id number] [facility] [address] Feb, [facility] [address] [id number] [facility] [address] Jan, [facility] [address] [id number] [address] [place] [address], [place] [address] Jan, [facility] [address] [id number] [address] [place] [address], [place] [address] Jan, [facility] [address] [id number] [address] [place] [address], [place] [address] Jan, [facility] [address] [id number] [address] [place] [address], [place] [address] Jan, [facility] [address] [id number] [address] [place] [address], [place] [address] Jan, [facility] [address] [id number] [address] [place] [address], [place] [address] Dec, [facility] [address] [id number] [address] [place] [address], [place] [address] Dec, [facility] [address] [id number] [address] [place] [address], [place] [address] Nov, [facility] [address] [id number] [address] [place] [address], [place] [address] Nov, [facility] [address] [id number] [address] [place] [address], [place] [address] Nov, [facility] [address] [id number] [address] [place] [address], [place] [address] Nov, [facility] [address] [id number] [address] [place] [address], [place] [address] Nov, [facility] [address] [id number] [address] [place] [address], [place] [address] Nov, [facility] [address] [id number] [address] [place] [address], [place] [address] Sep, [facility] [address] [id number] [facility] [address] Sep, [facility] [address] [id number] [address] [place] [address], [place] [address] Sep, [facility] [address] [id number] [address] [place] [address], [place] [address] Sep, [facility] [address] [id number] [address] [place] [address], [place] [address] Aug, [facility] [address] [id number] [address] [place] [address], [place] [address] Aug, [facility] [address] [id number] [address] [place] [address], [place] [address] Jul, [facility] [address] [id number] [address] [place] [address], [place] [address] Jul, [facility] [address] [id number] [address] [place] [address], [place] [address] Jun, [facility] [address] [id number] [address] [place] [address], [place] [address] Jun, [facility] [address] [id number] [address] [place] [address], [place] [address] Jun, [facility] [address] [id number] [address] [place] [address], [place] [address] Jun, [facility] [address] [id number] [address] [place] [address], [place] [address] May, [facility] [address] [id number] [address] [place] [address], [place] [address] May, [facility] [address] [id number] [address] [place] [address], [place] [address] May, [facility] [address] [id number] [address] [place] [address], [place] [address] May, [facility] [address] [id number] [address] [place] [address], [place] [address] May, [facility] [address] [id number] [address] [place] [address], [place] [address] May, [facility] [address] [id number] [address] [place] [address], [place] [address] Apr, [facility] [address] [id number] [address] [place] [address], [place] [address] Apr, [facility] [address] [id number] [address] [place] [address], [place] [address] Apr, [facility] [address] [id number] [address] [place] [address], [place] [address] Apr, [facility] [address] [id number] [address] [place] [address], [place] [address] Mar, [facility] [address] [id number] [address] [place] [address], [place] [address] Mar, [facility] [address] [id number] [address] [place] [address], [place] [address] Mar, [facility] [address] [id number] [address] [place] [address], [place] [address] Mar, [facility] [address] [id number] [address] [place] [address], [place] [address] Feb, [facility] [id number] [place] [id number] Jan, [facility] [address] [id number] [address] [place] [address], [place] [address] Jan, [facility] [address] [id number] [address] [place] [address], [place] [address] Dec, [facility] [address] [id number] [address] [place] [address], [place] [address] Dec, [facility] [address] [id number] [address] [place] [address], [place] [address] Dec, [facility] [address] [facility] [address] [id number] [place] [id number] Dec, 2012 [facility] [address] [id number] [address] [place] [id number] 17 Nov, 2012 [facility] [address] [id number] [address] [place] [address] Nov, [facility] [address] [id number] [address] [place] [address] Nov, [facility] [address] [id number] [address] [place] [id number] Nov, [facility] [address] [facility] [id number] [address] [place] [address] Nov, [facility] [address] [facility] [id number] [address] [place] [address] October, [facility] [address] [facility] [id number] [address] [place] [id number] October, [facility] [address] [id number] [address] [place] [address] Aug, [facility] [address] [facility] [id number] [address] [place] [id number] Nov, IMMUNIZATIONS No Known Immunizations SOCIAL HISTORY Never Assessed REASON FOR VISIT PLAN OF CARE VITAL SIGNS Height 72 in 2014-07-11 Weight 443 lbs 2014-07-11 Temperature 97.2 degrees Fahrenheit 2014-07-11 Heart Rate 80 bpm 2014-07-11 Respiratory Rate 18 2014-07-11 Blood pressure systolic 123 mmHg 2014-07-11 Blood pressure diastolic 64 mmHg 2014-07-11 MEDICATIONS Unknown Medications RESULTS No Results PROCEDURES Procedure Date Ordered Result Body Site COMPREHENSIVE CARE MANAGEMENT Jul 11, 2014 SKIN TISSUE PROCEDURE Jul 11, 2014 INSTRUCTIONS MEDICATIONS ADMINISTERED No Known Medications [...] ANGUIANO 2014 Surgical History gastric sleeve 03/2016 Hospitalization History gastric sleeve Hospitalization History [facility] Trouble with left shoulder blade 08/2017
--- OUTSIDE RECORDS SUMMARY | 2019-11-29 09:06 | XMS REPORT ---
Author Author Curt Hughes [facility] Organization [facility] Address [address] [place], [place] [id number] Care Team Providers Care Guide Dog Mobility Instructor Name Role Phone Saul [facility] JASON Unavailable PROBLEMS Type Condition ICD9-CM Code MJE42-NG Code Onset Dates Condition S tatus SNOMED Code Problem Insomnia G47.00 Active 759089977 Problem Hyperlipemia E78.5 Active 1042542 4 Problem Morbid obesity E66.01 Active 30453 6002 Problem Benign essential hypertension I10 Active 4441620 Problem Renal insufficiency N28.9 Active 150800395 Problem Edema R60.9 Active 199678497 Problem Severe episode of recurrent major depressive disorder, without psychotic features F33.2 Active 28766592 Problem Metabolic syndrome E88.81 Active 2 46622138 Problem DANIELA (generalized anxiety disorder) F41.1 Active 02436992 Problem BMI 45.0-49.9, adult Z68.42 Active 725206592 Problem Sciatica, right side M54.31 Active 047069269047519 Problem Hammer toe of second toe of right foot M20.41 Active 721293444 Problem Mixed obsessional thoughts and acts F42.2 Active 33228616 Problem Hammer toe of right foot M20.41 Activ e 070411394 Problem Vitamin D deficiency E55.9 Active 03205998 Problem Chronic fatigue R53.82 Active 8422 9001 Problem Other chronic pain G89.29 Active 8 2343398 Problem Borderline personality disorder F60.3 Active 15979397 Problem Callous ulcer, limited to breakdown of skin L98.49 1 Active ALLERGIES No Information ENCOUNTERS Encounter Location Date Diagnosis [facility] [address] [facility] [address] [id number] [place] [id number] Jun, [facility] [address] [facility] [id number] [place] [id number] 14 Mar, 2019 [facility] [address] [facility] [id number] [address] [place] [phone] Feb, [facility] [address] [facility] [id number] [address] [place] [phone] Feb, [facility] [address] [facility] [id number] [address] [place] [phone] Jan, [facility] [address] [facility] [id number] [address] [place] [phone] Jan, [facility] [address] [facility] [id number] [address] [place] [phone] Jan, [facility] [id number] [place] [address] [id number] Jan, Callus of heel L84 ; Fissure in skin R23 .4 and Hammer toe of second toe of right foot M20.41 [facility] [id number] [place] [address] [id number] Jan, [facility] [address] [facility] [id number] [address] [place] [phone] Jan, [facility] [address] [facility] [id number] [address] [place] [phone] Jan, [facility] [address] [facility] [id number] [address] [place] [phone] Jan, Severe episode of recurrent major depressive disorder, without psychotic features F33.2 ; DANIELA (generalized anxiety disorder) F41.1 ; Mixed obsessional thoughts and acts F42.2 and Borderline personality disorder F60.3 [facility] [address] [facility] [id number] [address] [place] [phone] Jan, [facility] [address] [address] [id number] [place] [id number] Jan, Benign essential hypertension I10 [facility] [address] [id number] [place] [id number] Dec, Callous ulcer, limited to breakdown of s kin L98.491 and Morbid obesity E66.01 [facility] [address] [facility] [id number] [address] [place] [phone] Dec, [facility] [address] [facility] [id number] [address] [place] [phone] Dec, [facility] [address] [facility] [id number] [address] [place] [phone] Dec, [facility] [address] [facility] [id number] [address] [place] [phone] Dec, [facility] [address] [facility] [id number] [address] [place] [phone] Dec, Severe episode of recurrent major depressive disorder, without psychotic features F33.2 [facility] [address] [facility] [id number] [address] [place] [phone] Dec, DANIELA (generalized anxiety dis order) F41.1 ; Severe episode of recurrent major depressive disorder, without psychotic features F33.2 ; Mixed obsessional thoughts and acts F42.2 and 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 [facility] [id number] [place] [address] [id number] Dec, Morbid obesity E66.01 [facility] [address] [facility] [id number] [address] [place] [phone] Dec, [facility] [address] [facility] [id number] [address] [place] [phone] Dec, [address] [phone] Nov, [facility] [id number] [place] [address] [id number] Nov, [facility] [address] [facility] [id number] [address] [place] [phone] Nov, [facility] [address] [facility] [id number] [address] [place] [phone] Nov, [facility] [address] [facility] [id number] [address] [place] [phone] Nov, DANIELA (generalized anxiety dis order) F41.1 ; Severe episode of recurrent major depressive disorder, without psychotic features F33.2 ; Mixed obsessional thoughts and acts F42.2 and 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 [id number] [place] [id number] Nov, Morbid obesity E66.01 [facility] [address] [place] [id number] [address] [place] [phone] Nov, [place] [address] [facility] [id number] [address] [place] [phone] Nov, DANIELA (generalized anxiety dis order) F41.1 ; Mixed obsessional thoughts and acts F42.2 ; Severe episode of recurrent major depressive disorder, without psychotic features F33.2 and 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 [id number] [place] [id number] October, Morbid obesity E66.[address] [id number] [place] [address] [id number] October, Benign essential hypertension I10 and Mo rbid obesity E66.[address] [id number] [place] [id number] October, [place] [address] [facility] [id number] [address] [place] [phone] October, Severe episode of recurrent major depressive disorder, without psychotic features F33.[address] [id number] [place]REEK[place] [id number] October, Morbid obesity E66.[address] [id number] [place]REEK[place] [id number] October, [facility] [address] [facility] [id number] [address] [place] [phone] October, Severe episode of recurrent major depressive disorder, without psychotic features F33.2 ; DANIELA (generalized anxiety disorder) F41.1 ; Mixed obsessional thoughts and acts F42.2 and 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 [id number] CREEK[place] [id number] October, Morbid obesity E66.01 [facility] [address] [facility] [id number] [address] [place] [address] [id number] Sep, Dental examination Z01.[id number] [place] [address] [id number] Sep, [facility] [address] [facility] [id number] [place] [address] Sep, Sore in mouth K13.79 and Mor bid obesity E66.01 [facility] [address] [facility] [id number] [address] [place] [phone] Sep, Dental examination Z01.20 [facility] [address] [facility] [id number] [address] [place] [phone] Sep, Anxiety disorder, unspecifie d F41.[address] [id number] [place]REEK[place] [id number] Sep, Mouth ulcer K12.[address] [id number] [place]REEK[place] [id number] Sep, Morbid obesity E66.[address] [id number] [place] [address] [id number] Sep, Allergic rhinitis, unspecified seasonali ty, unspecified trigger J30.9 and Shortness of breath R06.[address] [id number] [place] [id number] Sep, 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 [id number] [place] [address] [id number] Aug, Mouth abscess K12.2 ; Mouth ulcer K12.1 ; Bloating R14.0 and Morbid obesity E66.[address] [id number] [place] [id number] Aug, [address] [id number] [place] [id number] Aug, [facility] [address] [id number] [place]REEK[place] [id number] Jul, Major depressive disorder, recurrent, mo derate F33.1 ; Abscess of arm, left L02.414 ; BMI 45.0-49.9, adult Z68.42 and Morbid obesity E66.01 [facility] [address] [facility] [address] [id number] [place] [id number] Jul, [facility] [address] [place] [address] AVE [id number] [place] [id number] Jul, [facility] [place] [address] [place] [address] AVE [id number] CREEK[place] [id number] Jun, Pain in right knee M25.561 and Other chr onic pain G89.29 [facility] [address] [place] [address] AVE [id number] CREEK[place] [id number] Jun, Benign essential hypertension I10 ; BMI 45.0-49.9, adult Z68.42 ; Morbid obesity E66.01 ; Vitamin D deficiency E55.9 ; Insomnia G47.00 ; 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 ; Edema R60.9 ; Recurrent major depressive disorder, in partial remission F33.41 ; Chronic fatigue R53.82 ; Acute pain of right knee M25.561 ; Metabolic syndrome E88.81 and Irritable mood R45.4 [facility] [address] [place] [id number] [address] [place] [phone] Jun, [facility] [address] [id number] [place] [id number] Jun, Irritable mood R45.4 [facility] [address] [place] [id number] [address] [place] [phone] May, [facility] [address] [place] [id number] [address] [place] [phone] May, [facility] [address] [place] [phone] 13 May, 2018 Recurrent major depressive d isorder, in partial remission F33.41 ; Mixed obsessional thoughts and acts F42.2 ; 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 and BMI 45.0-49.9, adult Z68.42 [facility] [address] [facility] [id number] [address] [place] [phone] Apr, [facility] [address] [facility] [id number] [address] [place] [phone] Apr, [facility] [address] [facility] [id number] [address] [place] [phone] Apr, [place] [address] [facility] [id number] [address] [place] [phone] Apr, [place] [address] [facility] [id number] [address] [place] [phone] Mar, Mixed obsessional thoughts a nd acts F42.2 ; Recurrent major depressive disorder, in partial remission F33.41 ; DANIELA (generalized anxiety disorder) F41.1 and BMI 45.0-49.9, adult Z68.[address] [place] [id number] [place] [address] [id number] Mar, [place] [id number] [place] [address] [id number] Mar, BMI 45.0-49.9, adult Z68.42 ; Instabilit y of right knee joint M25.361 and Rash R21 [facility] [address] [facility] [id number] [address] [place] [phone] Jan, Recurrent major depressive d isorder, in partial remission F33.41 ; Mixed obsessional thoughts and acts F42.2 and BMI 45.0-49.9, adult Z68.42 [facility] [address] [id number] [place] [id number] Jan, [facility] [id number] [place] [address] [id number] Jan, Benign essential hypertension I10 ; BMI 45.0-49.9, adult Z68.42 ; Metabolic syndrome E88.81 and Allergic rhinitis, unspecified seasonality, unspecified trigger J30.9 [facility] [address] [facility] [id number] [address] [place] [phone] Dec, DANIELA (generalized anxiety dis order) F41.1 and Depressive disorder, not elsewhere classified F32.9 [facility] [address] [id number] [place] [id number] Dec, Recurrent major depressive disorder, in partial remission F33.41 [facility] [address] [id number] [place] [id number] Dec, [facility] [address] [id number] [place] [id number] Nov, [facility] [address] [id number] [id number] Nov, Recurrent major depressive disorder, in partial remission F33.41 [facility] [address] [facility] [id number] [address] [place] [phone] Nov, Recurrent major depressive d isorder, in partial remission F33.41 ; Mixed obsessional thoughts and acts F42.2 ; DANIELA (generalized anxiety disorder) F41.1 and BMI 45.0-49.9, adult Z68.42 [facility] [address] [id number] [place] [id number] Nov, [facility] [address] [id number] [place] [id number] Nov, Other conjunctivitis of both eyes H10.89 and Sciatica, right side M54.31 [facility] [address] [id number] [place] [id number] Nov, [facility] [address] [id number] [place], [place] [id number] Nov, [facility] [address] [id number] [place], [place] [id number] October, [facility] [address] [id number] [place], [place] [id number] October, [facility] [address] [facility] [id number] [place] [address] October, BMI 45.0-49.9, adult Z68.42 ; Mixed obsessional thoughts and acts F42.2 ; Recurrent major depressive disorder, in partial remission F33.41 and DANIELA (generalized anxiety disorder) F41.1 [facility] [address] [id number] [place]REEK[place] [id number] October, Benign essential hypertension I10 ; Morb id obesity E66.01 and BMI 45.0-49.9, adult Z68.42 [facility] [address] [id number] [place], [place] [id number] Sep, [facility] [address] [id number] [place], [place] [id number] Sep, [facility] [address] [address] [id number] [place], [place] [id number] Sep, [facility] [address] [id number] [place], [place] [id number] Sep, Hospital discharge follow-up Z09 ; Aller gic rhinitis, unspecified seasonality, unspecified trigger J30.9 and Shortness of breath R06.02 [facility] [address] [id number] [place], [place] [id number] Sep, Recurrent major depressive disorder, in partial remission F33.41 [facility] [address] [id number] [place] [id number] Aug, Irritable mood R45.4 [facility] [address] [facility] [id number] [address] [place] [phone] Aug, [facility] [address] [address] [id number] [place], [place] [id number] Jul, Benign essential hypertension I10 ; Robert a R60.9 and Impacted cerumen of left ear H61.22 [facility] [address] [facility] [id number] [address] [place] [phone] 14 Jul, 2017 Major depression F32.9 ; Rec urrent major depressive disorder, in partial remission F33.41 and Anxiety F41.9 [facility] [address] [facility] [id number] [address] [place] [phone] Jun, Major depression F32.9 ; Rec urrent major depressive disorder, in partial remission F33.41 and Anxiety F41.9 [facility] [address] [id number] [id number] Jun, Major depression F32.9 ; Morbid obesity E66.01 ; Irritable mood R45.4 ; Hand weakness R29.898 and Vitamin D deficiency E55.9 [facility] [address] [id number] [place] [id number] Jun, [facility] [address] [id number] [place], [place] [id number] May, Major depression F32.9 [place] [address] [facility] [id number] [address] [place] [phone] May, Major depression F32.9 [facility] [address] [id number] [place]REEK[place] [id number] May, BMI 50.0-59.9, adult Z68.43 ; Major depr ession F32.9 ; Anxiety F41.9 ; Hypertrophic toenail L60.2 and Pain of left great toe M79.675 [facility] [address] [id number] [place], [place] [id number] May, Recurrent major depressive disorder, in partial remission F33.41 [facility] [address] [facility] [id number] [address] [place] [phone] Apr, [facility] [address] [id number] [place] [id number] Apr, [facility] [address] [facility] [id number] [address] [place] [phone] 15 Apr, 2017 Major depression F32.9 [facility] [address] [id number] [place], [place] [id number] Apr, Severe episode of recurrent major depres sive disorder, without psychotic features F33.2 ; Anxiety F41.9 and Insomnia G47.00 [facility] [address] [id number] [place]REEK, [place] [id number] Apr, [facility] [address] [facility] [id number] [address] [place] [phone] Apr, [facility] [id number] [place] [address] [id number] Apr, [facility] [address] [id number] [place] [id number] Mar, [facility] [id number] [place] [address] [id number] Mar, Allergic conjunctivitis of both eyes H10 .13 [facility] [address] [facility] [id number] [address] [place] [phone] Mar, Major depression F32.9 [facility] [address] [id number] [id number] Mar, Metabolic syndrome E88.81 ; History of g astric bypass Z98.890 ; Benign essential hypertension I10 ; Allergic conjunctivitis of both eyes H10.13 and Morbid obesity E66.01 [facility] [address] [facility] [id number] [address] [place] [phone] Mar, Major depression F32.9 [facility] [address] [id number] [place]REEK[place] [id number] Feb, [facility] [place] [address] [facility] [id number] [address] [place] [phone] Feb, Major depression F32.9 [facility] [address] [id number] [place]REEK[place] [id number] Feb, Subacute maxillary sinusitis J01.00 and Bronchitis J40 [facility] [address] [facility] [id number] [address] [place] [phone] Feb, Major depressive disorder, r ecurrent, moderate F33.[address] [facility] [address] [id number] [place] [id number] Jan, [facility] [address] [id number] CREEK, [place] [id number] Jan, Acute non-recurrent maxillary sinusitis J01.00 and Skin tag L91.8 [facility] [place] [address] [facility] [address] [id number] [place] [id number] Jan, Cough R05 and Sinus congestion R09.[address] [facility] [id number] [place] [address] [id number] Jan, [facility] [place] [address] [facility] [address] [id number] [place] [address] [id number] Jan, Benign essential hypertension I10 ; Hist ory of gastric bypass Z98.890 and Nausea and vomiting in adult R11.2 [facility] [address] [facility] [id number] [address] [place] [phone] Jan, Major depressive disorder, r ecurrent, moderate F33.1 [facility] [address] [facility] [id number] [address] [place] [phone] Dec, Insomnia G47.00 ; Recurrent major depressive disorder, in partial remission F33.41 and Morbid obesity E66.01 [facility] [address] [id number] [place] [id number] Dec, [facility] [address] [id number] [place] [id number] Dec, Chronic bacterial conjunctivitis of left eye H10.[address] [facility] [address] [id number] [place]REEK, [place] [id number] Nov, [facility] [address] [id number] [place] [address] [id number] Nov, Dental examination Z01.20 [facility] [address] [facility] [address] [id number] [place], [place] [id number] Nov, Benign essential hypertension I10 ; Hist ory of gastric bypass Z98.890 and Nausea and vomiting in adult R11.2 [facility] [address] [facility] [id number] [address] [place] [phone] 13 Nov, 2016 Major depressive disorder, r ecurrent, moderate F33.1 ; Generalized anxiety disorder F41.1 and Insomnia due to other mental disorder F51.05 [place] [address] [facility] [id number] [address] [place] [phone] Nov, Recurrent major depressive d isorder, in partial remission F33.41 ; Insomnia G47.00 and Morbid obesity E66.01 [facility] [address] [facility] [id number] [place] [id number] October, Abscess of left arm L02.414 [place] [address] [place] [id number] [address] [place] [address] October, Morbid obesity E66.01 ; Lida r depression F32.9 and Recurrent major depressive disorder, in partial remission F33.41 [place] [address] [facility] [address] [id number] [place] [id number] Sep, Benign essential hypertension I10 ; Morb id obesity E66.01 ; S/P gastric bypass Z98.84 ; Abscess L02.91 and Chronic bacterial conjunctivitis of left eye H10.[address] [id number] [id number] Sep, Dental examination Z01.20 [place] [id number] [facility] [id number] [address] [place] [id number] Sep, Morbid obesity E66.01 ; Lida r depression F32.9 and Recurrent major depressive disorder, in partial remission F33.41 [place] [address] [address] [facility] [id number] [address] [place] [id number] Jul, [place] [address] [facility] [id number] [address] [place] [id number] Jul, 2016 Major depressive disorder, r ecurrent, moderate F33.1 [place] [address] [address] [facility] [id number] [address] [place] [id number] Jul, Major depressive disorder, r ecurrent, moderate F33.1 and Generalized anxiety disorder F41.[address] [place] [id number] [place] [id number] Jul, Cough R05 [place] [address] [facility] [id number] [address] [place] [phone] Jul, Morbid obesity E66.01 ; Lida r depression F32.9 and Recurrent major depressive disorder, in partial remission F33.[address] [place] [id number] [place] [id number] Jul, [place] [id number] [place] [id number] Jul, [place] [id number] [place] [id number] Jul, Gastroenteritis K52.9 and Cough R[id number] [place] [id number] Jun, Acute bacterial conjunctivitis of left e ye H10.32 [place] [id number] [place] [id number] Jun, [place] [address] [place] [id number] [address] [place] [address] Jun, Recurrent major depressive d isorder, in partial remission F33.41 [place] [address] [place] [id number] [address] [place] [id number] May, Major depression F32.9 and M orbid obesity E66.01 [place] [address] [place] [id number] [address] [place] [phone] May, [place] [address] [id number] [id number] May, Thrush B37.0 [place] [address] [facility] [id number] [address] [place] [address] Apr, Major depressive disorder, r ecurrent, moderate F33.1 [place] [address] [facility] [id number] [address] [place] [address] Apr, Insomnia G47.00 ; Major depr ession F32.9 and Recurrent major depressive disorder, in partial remission F33.41 [place] [address] [facility] [id number] [address] [place] [id number] Apr, [place] [address] [facility] [id number] [address] [place] [address] Apr, Major depression F32.9 and R ecurrent major depressive disorder, in partial remission F33.[id number] [place] [address] [id number] Mar, Benign essential hypertension I10 ; Morb id obesity E66.01 ; Impacted cerumen of both ears H61.23 ; Laceration of finger of right hand, initial encounter S61.219A and Encounter for immunization Z23 [facility] [address] [facility] [id number] [address] [place] [id number] 17 Mar, 2016 [place] [address] [facility] [id number] [address] [place] [phone] Mar, [place] [address] [facility] [id number] [address] [place] [id number] Mar, [place] [id number] [place] [address] [id number] Feb, Nausea R11.0 ; Blood in the stool K92.1 and Benign essential hypertension I10 [place] [address] [facility] [id number] [address] [place] [phone] Feb, Major depression F32.9 and R ecurrent major depressive disorder, in partial remission F33.41 [facility] [address] [id number] [id number] Feb, [facility] [address] [id number] [place] [id number] Feb, Recurrent major depressive disorder, in partial remission F33.[address] [facility] [address] [id number] [place] [id number] Jan, [facility] [address] [id number] [place] [id number] Jan, Benign essential hypertension I10 ; Robert a R60.9 and Hyperlipidemia, unspecified hyperlipidemia type E78.[address] [facility] [address] [id number] [place] [id number] Jan, Recurrent major depressive disorder, in partial remission F33.41 [facility] [address] [id number] [facility] [id number] Jan, [facility] [address] [id number] [place] [id number] Jan, [facility] [address] [id number] CREEK[place] [id number] Jan, [facility] [address] [facility] [id number] [address] [place] [phone] Jan, [facility] [address] [facility] [id number] [address] [place] [phone] Dec, [facility] [address] [facility] [id number] [address] [place] [phone] Nov, [facility] [address] [facility] [id number] [address] [place] [phone] Nov, Major depression F32.9 [facility] [address] [facility] [id number] [address] [place] [address] Nov, [facility] [address] [facility] [id number] [address] [place] [phone] Nov, [facility] [address] [facility] [id number] [address] [place] [id number] Nov, Major depressive disorder, r ecurrent episode, mild F33.0 and Anxiety F41.[address] [id number] [place] [id number] Nov, [id number] [place] [address] [id number] October, Left elbow pain M25.522 and Other season al allergic rhinitis J30.[id number] [place] [address] [id number] October, [place] [address] [facility] [id number] [address] [place] [phone] October, Major depressive disorder, r ecurrent, moderate F33.1 [place] [address] [facility] [id number] [address] [place] [phone] October, Major depression F32.9 [place] [address] [facility] [id number] [address] [place] [phone] Sep, [place] or callus L84 and Onych omycosis B35.1 [place] [address] [facility] [id number] [address] [place] [id number] Sep, Major depressive disorder, r ecurrent, moderate F33.1 [place] [address] [facility] [id number] [address] [place] [phone] Sep, Major depression F32.9 [place] [address] [facility] [id number] [address] [place] [address] Sep, Moderate episode of recurren t major depressive disorder F33.[id number] [place] [address] [id number] Sep, Muscle strain T14.8 [facility] [address] [facility] [id number] [address] [place] [id number] Aug, Major depression F32.9 [place] [address] [facility] [id number] [address] [place] [address] Aug, Major depression F32.9 [facility] [address] [place] [id number] [address] [place] [id number] Jul, Morbid obesity E66.01 and Ma cora depression F32.9 [facility] [address] [facility] [id number] [address] [place] [id number] Jul, Depression, major, recurrent , moderate F33.[id number] [place] [address] [id number] Jul, [facility] [address] [phone] Jul, [facility] [address] [address] Jul, Major depression F32.9 and M orbid obesity E66.[id number] [place] [address] [id number] Jul, Type II diabetes mellitus E11.9 ; Callus of foot L84 ; Benign essential hypertension I10 and Renal insufficiency N28.9 [facility] [address] [address] 09 Jul, 2015 Depression, major, recurrent , moderate F33.1 [facility] [address] [place] [id number] [address] [place] [address] Jul, Major depression F32.9 [facility] [address] [place] [id number] [place] [id number] Jul, [facility] [address] [address] Jun, Major depression F32.9 [facility] [address] [place] [id number] [place] [address] Jun, Major depressive disorder, r ecurrent, moderate F33.1 [facility] [address] [place] [id number] [place] [phone] 08 Jun, 2015 [facility] [address] [facility] [id number] [address] [place] [phone] 08 Jun, 2015 Major depressive disorder, r ecurrent, moderate F33.1 and Major depression F32.[address] [place] [id number] [place] [address] [id number] Jun, Type II diabetes mellitus E11.9 [facility] [address] [facility] [id number] [address] [place] [phone] Jun, Depression, major, recurrent , moderate F33.1 [place] [address] [facility] [id number] [address] [place] [address] May, Major depressive disorder, r ecurrent, moderate F33.1 [place] [address] [place] [id number] [place] [address] May, [place] [id number] [place] [address] [id number] May, Edema R60.9 [place] [address] [facility] [id number] [address] [place] [address] May, Insomnia G47.00 and Major de pression F32.[address] [place] [id number] [place] [address] [id number] 15 May, 2015 Morbid obesity E66.01 ; Edema R60.9 ; Sh ortness of breath R06.02 ; Benign essential hypertension I10 and Renal insufficiency N28.[address] [place] [address] [id number] [place] [address] [id number] 14 May, 2015 Hyperlipemia 272.4 and Renal insufficien cy N28.9 [place] [address] [facility] [id number] [address] [place] [phone] Apr, Major depression F32.9 [place] [address] [place] [id number] [place] [phone] Apr, [place] [address] [facility] [id number] [address] [place] [phone] Apr, Major depressive disorder, r ecurrent, moderate F33.1 [facility] [id number] [place] [address] [id number] Apr, Type II diabetes mellitus E11.9 ; Benign essential hypertension I10 ; Edema R60.9 and Renal insufficiency N28.9 [place] [address] [facility] [id number] [address] [place] [phone] Mar, Major depressive disorder, r ecurrent, moderate F33.1 [place] [address] [facility] [id number] [address] [place] [phone] Mar, [place] [address] [facility] [id number] [address] [place] [address] Mar, Major depression F32.9 [facility] [address] [facility] [id number] [place] [address] [id number] Mar, Morbid obesity E66.01 ; Benign essential hypertension I10 and Type II diabetes mellitus E11.9 [place] [address] [facility] [id number] [address] [place] [phone] Feb, Major depressive disorder, r ecurrent, moderate F33.1 [place] [address] [facility] [id number] [address] [place] [phone] Feb, Major depressive disorder, r ecurrent episode, in partial or unspecified remission 296.35 ; Anxiety state, unspecified 300.00 and Morbid obesity 278.01 [place] [address] [facility] [id number] [address] [place] [address] Feb, [facility] [id number] [place] [address] [id number] Feb, Vomiting 787.03 and Viral syndrome 079.9 9 [place] [address] [facility] [id number] [address] [place] [phone] 15 Feb, 2015 Major depression, recurrent 296.30 ; Generalized anxiety disorder 300.02 and No condition on Archbald II V71.09 [facility] [address] [facility] [address] [id number] [id number] Feb, Skin tag 701.9 [facility] [address] [facility] [id number] [address] [place] [id number] Feb, [facility] [address] [place] [id number] [place] [address] Jan, Depression, major, recurrent , moderate 296.32 [facility] [address] [place] [address] AVE [id number] [place] [address] [id number] Jan, Nausea and vomiting 787.01 ; Rib pain on right side 786.50 and Fall on or from sidewalk curb E880.1 [facility] [address] [facility] [id number] [address] [place] [phone] Jan, [facility] [address] [place] [id number] [address] [place] [phone] Jan, Major depressive disorder, r ecurrent episode, in partial or unspecified remission 296.35 and Anxiety state, unspecified 300.[id number] [place] [address] [id number] Jan, [facility] [address] [facility] [id number] [address] [place] [address] Jan, Depression, major, recurrent , moderate 296.32 [facility] [address] [place] [id number] [place] [address] Jan, Major depression, recurrent 296.30 ; No condition on Archbald II V71.09 and No condition on axis III V71.09 [id number] [place] [address] [id number] Jan, Drug-induced nausea and vomiting 787.01 [facility] [address] [facility] [id number] [address] [place] [address] Jan, Depression, major, recurrent , moderate 296.32 [facility] [address] [place] [id number] [address] [place] [id number] Dec, Depression, major, recurrent , moderate 296.32 [facility] [id number] [place] [address] [id number] Dec, Morbid obesity 278.01 ; Metabolic syndro me 277.7 ; Hyperlipemia 272.4 ; Benign essential hypertension 401.1 ; Dietary counseling V65.3 ; Exercise counseling V65.41 and Inflamed skin tag 701.[address] [address] Dec, Depression, major, recurrent , moderate 296.[address] [address] Dec, [address] [address] Dec, Major depression, recurrent 296.30 ; Anxiety, generalized 300.02 and No condition on Archbald II V71.09 [place] [id number] [place] [address] Dec, Depression, major, recurrent , moderate 296.[address] [address] Dec, Major depressive disorder, r ecurrent episode, moderate 296.32 [place] [id number] [place] [address] Dec, Depression, major, recurrent , moderate 296.32 [place] [id number] [place] [address] Dec, Depression, major, recurrent , moderate 296.[address] [address] Dec, Depression, major, recurrent , moderate 296.32 [place] [id number] [address] [place] [address] Dec, Depression, major, recurrent , moderate 296.32 [place] [id number] [address] [place] [address] 17 Nov, 2014 Depression, major, recurrent , moderate 296.32 [facility] [address] [place] [id number] [place] [address] 16 Nov, 2014 Major depression 296.20 ; So cial phobia 300.23 and No condition on Archbald II V71.09 [facility] [address] [place] [id number] [place] [id number] 16 Nov, 2014 Depression, major, recurrent , moderate 296.32 [facility] [address] [place] [id number] [place] [address] 09 Nov, 2014 Major depressive disorder, r ecurrent episode, moderate 296.32 and Generalized anxiety disorder 300.02 [facility] [address] [place] [id number] [place] [address] 09 Nov, 2014 Depression, major, recurrent , moderate 296.32 [facility] [address] [address] 04 Nov, 2014 Depression, major, recurrent , moderate 296.32 [facility] [address] [address] October, Generalized anxiety disorder 300.02 ; No condition on Archbald II V71.09 and Major depressive disorder, recurrent 296.30 [facility] [address] [place] [id number] [place] [address] Sep, [facility] [address] [place] [id number] [place] [id number] Sep, [facility] [address] [place] [id number] [place] [address] Aug, [facility] [address] [id number] Aug, [facility] [address] [place] [id number] [place] [phone] Aug, [facility] [address] [place] [id number] [place] [id number] 23 Aug, 2014 [facility] [address] [id number] [facility] [place] [address] 20 Aug, 2014 [facility] [address] [id number] [address] [place] [address], [place] [address] 20 Aug, 2014 [facility] [address] [id number] [address] [place] [address], [place] [address] 20 Aug, 2014 [facility] [address] [id number] [address] [place] [address], [place] [address] 20 Aug, 2014 [facility] [address] [id number] [address] [place] [address], [place] [address] Aug, [facility] [address] [id number] [address] [place] [address], [place] [address] Aug, [facility] [address] [id number] [address] [place] [address], [place] [address] Aug, [facility] [address] [id number] [address] [place] [address], [place] [address] Aug, [facility] [address] [id number] [address] [place] [address], [place] [address] Aug, [facility] [address] [id number] [address] [place] [address], [place] [address] Aug, [facility] [address] [id number] [address] [place] [address], [place] [address] Aug, [facility] [address] [id number] [address] [place] [address], [place] [address] Aug, [facility] [address] [id number] [address] [place] [address], [place] [address] Aug, [facility] [address] [id number] [address] [place] [address], [place] [address] Aug, [facility] [address] [id number] [address] [place] [address], [place] [address] 24 Jul, 2014 [facility] [address] [id number] [address] [place] [address], [place] [address] Jul, [facility] [address] [id number] [address] [place] [address], [place] [address] Jul, [facility] [address] [id number] [address] [place] [address], [place] [address] Jul, [facility] [address] [id number] [address] [place] [address], [place] [address] Jul, [facility] [address] [id number] [address] [place] [address], [place] [address] Jul, [facility] [address] [id number] [address] [place] [address], [place] [address] Jun, [facility] [address] [id number] [address] [place] [address], [place] [address] Jun, [facility] [address] [id number] [address] [place] [address], [place] [address] Jun, [facility] [address] [id number] [address] [place] [address], [place] [address] Jun, [facility] [address] [id number] [address] [place] [address], [place] [address] Jun, [facility] [address] [id number] [address] [place] [address] Jun, [facility] [address] [id number] [address] [place] [id number] Jun, [facility] [address] [id number] [address] [place] [address] Jun, [facility] [address] [id number] [address] [place] [address], [place] [address] Jun, [facility] [address] [id number] [address] [place] [address] Jun, [facility] [address] [id number] [address] [place] [id number] Jun, [facility] [address] [id number] [address] [place] [address], [place] [address] Jun, [facility] [address] [id number] [place] [id number] Jun, [facility] [address] [id number] [address] [place] [address], [place] [address] Jun, [facility] [address] [id number] [address] [place] [address], [place] [address] Jun, [facility] [address] [id number] [address] [place] [address], [place] [address] Jun, [facility] [address] [id number] [address] [place] [address] May, [facility] [address] [id number] [address] [place] [address], [place] [address] May, [facility] [address] [id number] [address] [place] [address], [place] [address] May, [facility] [address] [id number] [address] [place] [address], [place] [address] May, [facility] [address] [id number] [address] [place] [address], [place] [address] Apr, [facility] [address] [id number] [address] [place] [address] Apr, [facility] [address] [id number] [address] [place] [id number] Apr, [facility] [address] [id number] [address] [place] [address], [place] [address] Apr, [facility] [address] [id number] [address] [place] [id number] Apr, [facility] [address] [id number] [address] [place] [address], [place] [address] Apr, [facility] [address] [id number] [address] [place] [address], [place] [id number] Apr, [facility] [address] [id number] [address] [place] [address], [place] [id number] Apr, [facility] [address] [id number] [address] [place] [address], [place] [id number] Apr, [facility] [address] [id number] [address] [place] [address], [place] [id number] Apr, [facility] [address] [id number] [address] [place] [address], [place] [id number] Apr, [facility] [address] [id number] [address] [place] [address], [place] [id number] Apr, [facility] [address] [id number] [address] [place] [address], [place] [id number] Apr, [facility] [address] [id number] [address] [place] [address], [place] [id number] Apr, [facility] [address] [id number] [address] [place] [address], [place] [id number] Apr, [facility] [address] [id number] [address] [place] [address], [place] [id number] Apr, [facility] [address] [id number] [address] [place] [address], [place] [id number] Apr, [facility] [address] [id number] [address] [place] [address], [place] [id number] Apr, [facility] [address] [id number] [address] [place] [address], [place] [id number] Apr, [facility] [address] [id number] [address] [place] [address], [place] [id number] Apr, [facility] [address] [id number] [address] [place] [address], [place] [id number] Mar, [facility] [address] [id number] [address] [place] [address], [place] [id number] Mar, [facility] [address] [id number] [address] [place] [address], [place] [id number] Mar, [facility] [address] [id number] [address] [place] [address], [place] [id number] Mar, [facility] [address] [id number] [address] [place] [address], [place] [id number] Mar, [facility] [address] [id number] [address] [place] [address], [place] [id number] Mar, [facility] [address] [id number] [address] [place] [address], [place] [id number] Mar, [facility] [address] [id number] [address] [place] [address], [place] [id number] Mar, [facility] [address] [id number] [address] [place] [address], [place] [id number] Mar, [facility] [address] [id number] [address] [place] [address], [place] [id number] Mar, [facility] [address] [id number] [address] [place] [address], [place] [id number] Feb, [facility] [address] [id number] [address] [place] [address], [place] [id number] Feb, [facility] [address] [id number] [address] [place] [address], [place] [id number] Feb, [facility] [address] [id number] [address] [place] [address], [place] [id number] Feb, [facility] [address] [id number] [address] [place] [address], [place] [id number] Jan, [facility] [address] [id number] [address] [place] [address], [place] [id number] Jan, [facility] [address] [id number] [address] [place] [address], [place] [id number] Jan, [facility] [address] [id number] [address] [place] [address], [place] [id number] Jan, [facility] [address] [id number] [address] [place] [address], [place] [id number] Jan, [facility] [address] [id number] [address] [place] [address], [place] [id number] Jan, [facility] [address] [id number] [address] [place] [address], [place] [address] Dec, [facility] [address] [id number] [address] [place] [address], [place] [id number] Dec, [facility] [address] [id number] [address] [place] [address], [place] [id number] Nov, [facility] [address] [id number] [address] [place] [address], [place] [id number] Nov, [facility] [address] [id number] [address] [place] [address], [place] [id number] Nov, [facility] [address] [id number] [address] [place] [address], [place] [id number] Nov, [facility] [address] [id number] [address] [place] [address], [place] [id number] Nov, [facility] [address] [id number] [address] [place] [address], [place] [id number] Nov, [facility] [address] [id number] [address] [place] [address], [place] [id number] Sep, [facility] [address] [id number] [address] [place] [address], [place] [id number] Sep, [facility] [address] [id number] [address] [place] [address], [place] [id number] Sep, [facility] [address] [id number] [address] [place] [address], [place] [id number] Sep, [facility] [address] [id number] [address] [place] [address], [place] [id number] Aug, [facility] [address] [id number] [address] [place] [address], [place] [address] Aug, [facility] [address] [id number] [address] [place] [address], [place] [id number] Jul, [facility] [address] [id number] [address] [place] [address], [place] [address] Jul, [facility] [address] [id number] [address] [place] [address], [place] [id number] Jun, [facility] [address] [id number] [address] [place] [address], [place] [address] Jun, [facility] [address] [id number] [address] [place] [address], [place] [id number] Jun, [facility] [address] [id number] [address] [place] [address], [place] [id number] Jun, [facility] [address] [id number] [address] [place] [address], [place] [id number] May, [facility] [address] [id number] [address] [place] [address], [place] [id number] 24 May, 2013 [facility] [address] [id number] [address] [place] [address], [place] [id number] May, [facility] [address] [id number] [address] [place] [address], [place] [address] May, [facility] [address] [id number] [address] [place] [address], [place] [id number] May, [facility] [address] [id number] [address] [place] [address], [place] [id number] May, [facility] [address] [id number] [address] [place] [address], [place] [address] Apr, [facility] [address] [id number] [address] [place] [address], [place] [id number] Apr, [facility] [address] [id number] [address] [place] [address], [place] [id number] Apr, [facility] [address] [id number] [address] [place] [address], [place] [id number] Apr, [facility] [address] [id number] [address] [place] [address], [place] [id number] Mar, [facility] [address] [id number] [address] [place] [address], [place] [id number] Mar, [facility] [address] [id number] [address] [place] [address], [place] [id number] Mar, [facility] [address] [id number] [address] [place] [address], [place] [id number] Mar, [facility] [address] [id number] [address] [place] [address], [place] [id number] Feb, [facility] [address] [id number] [place] [id number] Jan, [facility] [address] [id number] [address] [place] [address], [place] [id number] Jan, [facility] [address] [id number] [address] [place] [address], [place] [id number] Dec, [facility] [address] [id number] [address] [place] [id number] Dec, [facility] [address] [id number] [address] [place] [address], [place] [id number] Dec, [facility] [address] [id number] [place] [id number] Dec, [facility] [address] [id number] [address] [place] [address], [place] [id number] Nov, [facility] [address] [id number] [address] [place] [address], [place] [id number] 14 Nov, 2012 [facility] [address] [id number] [address] [place] [address], [place] [id number] Nov, [facility] [address] [id number] [address] [address] Nov, [facility] [address] [facility] [id number] [address] [place] [id number] Nov, [facility] [address] [facility] [id number] [address] [place] [id number] October, [facility] [address] [facility] [id number] [address] [place] [id number] October, [facility] [address] [facility] [id number] [address] [place] [id number] Aug, [facility] [address] [facility] [id number] [address] [place] [id number] 13 Nov, 2011 IMMUNIZATIONS No Known Immunizations [...] 03/2016 Hospitalization History gastric sleeve Hospitalization History [facility] ER Trouble with left shoulder blade 08/2017
--- OUTSIDE RECORDS SUMMARY | 2019-11-29 09:06 | XMS REPORT ---
Author Author Curt Hughes [facility] Organization [facility] Address [address] [place], [place] [id number] Care Team Providers Care House Player Name Role Phone Saul [facility] JASON Unavailable PROBLEMS Type Condition ICD9-CM Code JLM97-LP Code Onset Dates Condition S tatus SNOMED Code Problem Insomnia G47.00 Active 327831679 Problem Hyperlipemia E78.5 Active 3738231 4 Problem Morbid obesity E66.01 Active 63475 6002 Problem Benign essential hypertension I10 Active 1548213 Problem Renal insufficiency N28.9 Active 308307122 Problem Edema R60.9 Active 605623574 Problem Severe episode of recurrent major depressive disorder, without psychotic features F33.2 Active 21899419 Problem Metabolic syndrome E88.81 Active 2 29418407 Problem DANIELA (generalized anxiety disorder) F41.1 Active 05746559 Problem BMI 45.0-49.9, adult Z68.42 Active 700531469 Problem Sciatica, right side M54.31 Active 864734646930852 Problem Hammer toe of second toe of right foot M20.41 Active 303606875 Problem Mixed obsessional thoughts and acts F42.2 Active 66436000 Problem Hammer toe of right foot M20.41 Activ e 701411686 Problem Vitamin D deficiency E55.9 Active 14273568 Problem Chronic fatigue R53.82 Active 8422 9001 Problem Other chronic pain G89.29 Active 8 4443638 Problem Borderline personality disorder F60.3 Active 57902832 Problem Callous ulcer, limited to breakdown of skin L98.49 1 Active ALLERGIES No Information ENCOUNTERS Encounter Location Date Diagnosis [facility] [address] [facility] [address] [id number] [place] [id number] Jun, [facility] [address] [facility] [id number] [place] [id number] 14 Mar, 2019 [facility] [address] [facility] [id number] [address] [place] [address] Feb, [facility] [address] [facility] [id number] [address] [place] [address] Feb, [facility] [address] [facility] [id number] [address] [place] [address] Jan, [facility] [address] [facility] [id number] [address] [place] [address] Jan, [facility] [address] [facility] [id number] [address] [place] [address] Jan, [facility] [id number] [place] [id number] Jan, Callus of heel L84 ; Fissure in skin R23 .4 and Hammer toe of second toe of right foot M20.41 [facility] [id number] [place] [address] [id number] Jan, [facility] [address] [facility] [id number] [address] [place] [address] Jan, [facility] [address] [facility] [id number] [address] [place] [phone] Jan, [facility] [address] [facility] [id number] [address] [place] [address] Jan, Severe episode of recurrent major depressive disorder, without psychotic features F33.2 ; DANIELA (generalized anxiety disorder) F41.1 ; Mixed obsessional thoughts and acts F42.2 and Borderline personality disorder F60.3 [facility] [address] [facility] [id number] [address] [place] [address] Jan, [facility] [address] [id number][place] [id number] Jan, Benign essential hypertension I10 [facility] [address] [id number][place] [id number] Dec, Callous ulcer, limited to breakdown of s kin L98.491 and Morbid obesity E66.01 [facility] [address] [facility] [id number] [address] [place] [address] Dec, [facility] [address] [facility] [id number] [address] [place] [address] Dec, [facility] [address] [facility] [id number] [address] [place] [address] Dec, [facility] [address] [facility] [id number] [address] [place] [phone] Dec, [facility] [address] [facility] [id number] [address] [place] [address] Dec, Severe episode of recurrent major depressive disorder, without psychotic features F33.2 [facility] [address] [facility] [id number] [address] [place] [address] Dec, DANIELA (generalized anxiety dis order) F41.1 ; Severe episode of recurrent major depressive disorder, without psychotic features F33.2 ; Mixed obsessional thoughts and acts F42.2 and 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 [facility] [id number] [place] [address] [id number] Dec, Morbid obesity E66.01 [facility] [address] [facility] [id number] [address] [place] [address] Dec, [facility] [address] [facility] [id number] [address] [place] [address] Dec, [address] [address] Nov, [facility] [address] [id number] [place] [id number] Nov, [facility] [address] [facility] [id number] [address] [place] [address] Nov, [facility] [address] [facility] [id number] [address] [place] [address] Nov, [facility] [address] [facility] [id number] [address] [place] [address] Nov, DANIELA (generalized anxiety dis order) F41.1 ; Severe episode of recurrent major depressive disorder, without psychotic features F33.2 ; Mixed obsessional thoughts and acts F42.2 and 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 [id number][place] [id number] Nov, Morbid obesity E66.01 [facility] [address] [place] [id number] [address] [place] [address] Nov, [place] [address] [facility] [id number] [address] [place] [address] Nov, DANIELA (generalized anxiety dis order) F41.1 ; Mixed obsessional thoughts and acts F42.2 ; Severe episode of recurrent major depressive disorder, without psychotic features F33.2 and 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 [id number], [place] [id number] October, Morbid obesity E66.[address] [id number] [place] [address] [id number] October, Benign essential hypertension I10 and Mo rbid obesity E66.[address] [id number], [place] [id number] October, [place] [address] [facility] [id number] [address] [place] [address] October, Severe episode of recurrent major depressive disorder, without psychotic features F33.[address] [id number], [place] [id number] October, Morbid obesity E66.[address] [id number], [place] [id number] October, [facility] [address] [facility] [id number] [address] [place] [address] October, Severe episode of recurrent major depressive disorder, without psychotic features F33.2 ; DANIELA (generalized anxiety disorder) F41.1 ; Mixed obsessional thoughts and acts F42.2 and 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 [id number], [place] [id number] October, Morbid obesity E66.01 [facility] [address] [facility] [id number] [address] [place] [address] [id number] Sep, Dental examination Z01.[address] [id number] [place] [address] [id number] Sep, [facility] [address] [facility] [id number] [place] [address] Sep, Sore in mouth K13.79 and Mor bid obesity E66.01 [facility] [address] [facility] [id number] [address] [place] [address] Sep, Dental examination Z01.20 [facility] [address] [facility] [id number] [address] [place] [address] Sep, Anxiety disorder, unspecifie d F41.[address] [id number], [place] [id number] Sep, Mouth ulcer K12.[address] [id number], [place] [id number] Sep, Morbid obesity E66.[address] [id number] [place] [address] [id number] Sep, Allergic rhinitis, unspecified seasonali ty, unspecified trigger J30.9 and Shortness of breath R06.[address] [id number], [place] [id number] Sep, 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 [id number] [place] [address] [id number] Aug, Mouth abscess K12.2 ; Mouth ulcer K12.1 ; Bloating R14.0 and Morbid obesity E66.[id number] [place] [address] [id number] Aug, [address] [id number], [place] [id number] Aug, [facility] [address] [id number], [place] [id number] Jul, Major depressive disorder, recurrent, mo derate F33.1 ; Abscess of arm, left L02.414 ; BMI 45.0-49.9, adult Z68.42 and Morbid obesity E66.01 [facility] [address] [facility] [address] [id number], [place] [id number] Jul, [facility] [place] [address] [place] [address] AVE [id number], [place] [id number] Jul, [facility] [place] [address] [place] [address] AVE [id number], [place] [id number] Jun, Pain in right knee M25.561 and Other chr onic pain G89.29 [facility] Yulia[address] [place] [address] AVE [id number], [place] [id number] Jun, Benign essential hypertension I10 ; BMI 45.0-49.9, adult Z68.42 ; Morbid obesity E66.01 ; Vitamin D deficiency E55.9 ; Insomnia G47.00 ; 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 ; Edema R60.9 ; Recurrent major depressive disorder, in partial remission F33.41 ; Chronic fatigue R53.82 ; Acute pain of right knee M25.561 ; Metabolic syndrome E88.81 and Irritable mood R45.4 [facility] [address] [place] [id number] [address] [place] [address] Jun, [facility] [address] [id number], [place] [id number] Jun, Irritable mood R45.4 [facility] [address] [place] [id number] [address] [place] [address] May, [facility] [address] [place] [id number] [address] [place] [address] May, [facility] [id number] [place] [phone] 13 May, 2018 Recurrent major depressive d isorder, in partial remission F33.41 ; Mixed obsessional thoughts and acts F42.2 ; 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 and BMI 45.0-49.9, adult Z68.42 [facility] [address] [facility] [id number] [address] [place] [address] Apr, [facility] [address] [facility] [id number] [address] [place] [address] Apr, [facility] [address] [facility] [id number] [address] [place] [address] Apr, [place] [address] [facility] [id number] [address] [place] [address] Apr, [place] [address] [facility] [id number] [address] [place] [address] Mar, Mixed obsessional thoughts a nd acts F42.2 ; Recurrent major depressive disorder, in partial remission F33.41 ; DANIELA (generalized anxiety disorder) F41.1 and BMI 45.0-49.9, adult Z68.[address] [place] [id number] [place] [address] [id number] Mar, [place] [id number] [place] [address] [id number] Mar, BMI 45.0-49.9, adult Z68.42 ; Instabilit y of right knee joint M25.361 and Rash R21 [facility] [address] [facility] [id number] [address] [place] [address] Jan, Recurrent major depressive d isorder, in partial remission F33.41 ; Mixed obsessional thoughts and acts F42.2 and BMI 45.0-49.9, adult Z68.42 [facility] [address] [id number], [place] [id number] Jan, [facility] [id number] [place] [address] [id number] Jan, Benign essential hypertension I10 ; BMI 45.0-49.9, adult Z68.42 ; Metabolic syndrome E88.81 and Allergic rhinitis, unspecified seasonality, unspecified trigger J30.9 [facility] [address] [facility] [id number] [address] [place] [address] Dec, DNAIELA (generalized anxiety dis order) F41.1 and Depressive disorder, not elsewhere classified F32.9 [facility] [address] [id number], [place] [id number] Dec, Recurrent major depressive disorder, in partial remission F33.41 [facility] [address] [id number], [place] [id number] Dec, [facility] [address] [id number], [place] [id number] Nov, [facility] [address] [id number], [place] [id number] Nov, Recurrent major depressive disorder, in partial remission F33.41 [facility] [address] [facility] [id number] [address] [place] [address] Nov, Recurrent major depressive d isorder, in partial remission F33.41 ; Mixed obsessional thoughts and acts F42.2 ; DANIELA (generalized anxiety disorder) F41.1 and BMI 45.0-49.9, adult Z68.42 [facility] [address] [id number], [place] [id number] Nov, [facility] [address] [id number] [place] [id number] Nov, Other conjunctivitis of both eyes H10.89 and Sciatica, right side M54.31 [facility] [address] [id number], [place] [id number] Nov, [facility] [address] [id number], [place] [id number] Nov, [facility] [address] [id number], [place] [id number] October, [facility] [address] [id number], [place] [id number] October, [facility] [address] [facility] [id number] [place] [address] October, BMI 45.0-49.9, adult Z68.42 ; Mixed obsessional thoughts and acts F42.2 ; Recurrent major depressive disorder, in partial remission F33.41 and DANIELA (generalized anxiety disorder) F41.1 [facility] [address] [id number], [place] [id number] October, Benign essential hypertension I10 ; Morb id obesity E66.01 and BMI 45.0-49.9, adult Z68.42 [facility] [address] [id number], [place] [id number] Sep, [facility] [address] [id number], [place] [id number] Sep, [facility] [address] [address] [id number], [place] [id number] Sep, [facility] [address] [id number], [place] [id number] Sep, Hospital discharge follow-up Z09 ; Aller gic rhinitis, unspecified seasonality, unspecified trigger J30.9 and Shortness of breath R06.02 [facility] [address] [id number], [place] [id number] Sep, Recurrent major depressive disorder, in partial remission F33.41 [facility] [address] [id number], [place] [id number] Aug, Irritable mood R45.4 [facility] [address] [facility] [id number] [address] [place] [address] Aug, [facility] [address] [address] [id number], [place] [id number] Jul, Benign essential hypertension I10 ; Robert a R60.9 and Impacted cerumen of left ear H61.22 [facility] [address] [facility] [id number] [address] [place] [phone] 14 Jul, 2017 Major depression F32.9 ; Rec urrent major depressive disorder, in partial remission F33.41 and Anxiety F41.9 [facility] [address] [facility] [id number] [address] [place] [address] Jun, Major depression F32.9 ; Rec urrent major depressive disorder, in partial remission F33.[address] [facility] [address] [id number], [place] [id number] Jun, Major depression F32.9 ; Morbid obesity E66.01 ; Irritable mood R45.4 ; Hand weakness R29.898 and Vitamin D deficiency E55.9 [facility] [address] [id number], [place] [id number] Jun, [facility] [address] [id number], [place] [id number] May, Major depression F32.9 [place] [address] [facility] [id number] [address] [place] [address] May, Major depression F32.9 [facility] [address] [id number], [place] [id number] May, BMI 50.0-59.9, adult Z68.43 ; Major depr ession F32.9 ; Anxiety F41.9 ; Hypertrophic toenail L60.2 and Pain of left great toe M79.675 [facility] [address] [id number], [place] [id number] May, Recurrent major depressive disorder, in partial remission F33.41 [facility] [address] [facility] [id number] [address] [place] [address] Apr, [facility] [address] [id number], [place] [id number] Apr, [facility] [address] [facility] [id number] [address] [place] [address] 15 Apr, 2017 Major depression F32.9 [facility] [address] [id number], [place] [id number] Apr, Severe episode of recurrent major depres sive disorder, without psychotic features F33.2 ; Anxiety F41.9 and Insomnia G47.00 [facility] [address] [id number], [place] [id number] Apr, [facility] [address] [facility] [id number] [address] [place] [address] Apr, [facility] [place] [id number] [place] [address] [id number] Apr, [facility] [address] [id number], [place] [id number] Mar, [facility] [place] [id number] [place] [address] [id number] Mar, Allergic conjunctivitis of both eyes H10 .13 [facility] [address] [facility] [id number] [address] [place] [address] Mar, Major depression F32.9 [facility] [address] [id number], [place] [id number] Mar, Metabolic syndrome E88.81 ; History of g astric bypass Z98.890 ; Benign essential hypertension I10 ; Allergic conjunctivitis of both eyes H10.13 and Morbid obesity E66.01 [facility] [address] [facility] [id number] [address] [place] [address] Mar, Major depression F32.9 [facility] [address] [id number], [place] [id number] Feb, [facility] [address] [facility] [id number] [address] [place] [address] Feb, Major depression F32.9 [facility] [address] [id number], [place] [id number] Feb, Subacute maxillary sinusitis J01.00 and Bronchitis J40 [facility] [address] [facility] [id number] [address] [place] [address] Feb, Major depressive disorder, r ecurrent, moderate F33.[address] [facility] [address] [id number], [place] [id number] Jan, [facility] [place] [address] [id number], [place] [id number] Jan, Acute non-recurrent maxillary sinusitis J01.00 and Skin tag L91.8 [facility] [place] [address] [facility] [address] [id number], [place] [id number] Jan, Cough R05 and Sinus congestion R09.[address] [facility] [place] [id number] [place] [address] [id number] Jan, [facility] [place] [address] [facility] [address] [id number] [place] [address] [id number] Jan, Benign essential hypertension I10 ; Hist ory of gastric bypass Z98.890 and Nausea and vomiting in adult R11.2 [facility] [address] [facility] [id number] [address] [place] [address] Jan, Major depressive disorder, r ecurrent, moderate F33.1 [facility] [address] [facility] [id number] [address] [place] [address] Dec, Insomnia G47.00 ; Recurrent major depressive disorder, in partial remission F33.41 and Morbid obesity E66.01 [facility] [address] [id number], [place] [id number] Dec, [facility] [place] [address] [id number], [place] [id number] Dec, Chronic bacterial conjunctivitis of left eye H10.[address] [facility] [place] [address] [id number], [place] [id number] Nov, [facility] [place] [id number] [place] [address] [id number] Nov, Dental examination Z01.20 [facility] [address] [facility] [address] [id number], [place] [id number] Nov, Benign essential hypertension I10 ; Hist ory of gastric bypass Z98.890 and Nausea and vomiting in adult R11.2 [facility] [address] [facility] [id number] [address] [place] [id number] 13 Nov, 2016 Major depressive disorder, r ecurrent, moderate F33.1 ; Generalized anxiety disorder F41.1 and Insomnia due to other mental disorder F51.05 [place] [address] [facility] [id number] [address] [place] [phone] Nov, Recurrent major depressive d isorder, in partial remission F33.41 ; Insomnia G47.00 and Morbid obesity E66.01 [facility] [address] [facility] [id number] [place] [id number] October, Abscess of left arm L02.414 [place] [address] [place] [id number] [address] [place] [phone] October, Morbid obesity E66.01 ; Lida r depression F32.9 and Recurrent major depressive disorder, in partial remission F33.41 [place] [id number] [facility] [address] [id number][place] [id number] Sep, Benign essential hypertension I10 ; Morb id obesity E66.01 ; S/P gastric bypass Z98.84 ; Abscess L02.91 and Chronic bacterial conjunctivitis of left eye H10.[address] [id number][place] [id number] Sep, Dental examination Z01.20 [place] [address] [facility] [id number] [address] [place] [phone] Sep, Morbid obesity E66.01 ; Lida r depression F32.9 and Recurrent major depressive disorder, in partial remission F33.41 [place] [address] [facility] [id number] [address] [place] [phone] Jul, [place] [address] [facility] [id number] [address] [place] [phone] 24 Jul, 2016 Major depressive disorder, r ecurrent, moderate F33.1 [place] [address] [facility] [id number] [address] [place] [phone] Jul, Major depressive disorder, r ecurrent, moderate F33.1 and Generalized anxiety disorder F41.[address] [place] [id number] [place] [id number] Jul, Cough R05 [place] [address] [facility] [id number] [address] [place] [phone] Jul, Morbid obesity E66.01 ; Lida r depression F32.9 and Recurrent major depressive disorder, in partial remission F33.[address] [id number] [place] [address] [id number] Jul, [place] [id number] [place] [address] [id number] Jul, [place] [id number] [place] [address] [id number] Jul, Gastroenteritis K52.9 and Cough R05 [id number] [place] [address] [id number] Jun, Acute bacterial conjunctivitis of left e ye H10.32 [place] [id number] [place] [address] Jun, [place] [address] [place] [id number] [address] [place] [address] Jun, Recurrent major depressive d isorder, in partial remission F33.41 [place] [address] [place] [id number] [address] [place] [address] May, Major depression F32.9 and M orbid obesity E66.01 [place] [address] [place] [id number] [address] [place] [address] May, [place] [address] [id number] [id number] May, Thrush B37.0 [place] [address] [facility] [id number] [address] [place] [address] Apr, Major depressive disorder, r ecurrent, moderate F33.1 [place] [address] [facility] [id number] [address] [place] [address] Apr, Insomnia G47.00 ; Major depr ession F32.9 and Recurrent major depressive disorder, in partial remission F33.41 [place] [address] [facility] [id number] [address] [place] [address] Apr, [place] [address] [facility] [id number] [address] [place] [address] Apr, Major depression F32.9 and R ecurrent major depressive disorder, in partial remission F33.[id number] [place] [address] [id number] Mar, Benign essential hypertension I10 ; Morb id obesity E66.01 ; Impacted cerumen of both ears H61.23 ; Laceration of finger of right hand, initial encounter S61.219A and Encounter for immunization Z23 [facility] [address] [facility] [id number] [address] [place] [address] 17 Mar, 2016 [place] [address] [facility] [id number] [address] [place] [address] Mar, [place] [address] [facility] [id number] [address] [place] [address] Mar, [place] [id number] [place] [address] [id number] Feb, Nausea R11.0 ; Blood in the stool K92.1 and Benign essential hypertension I10 [place] [address] [facility] [id number] [address] [place] [address] Feb, Major depression F32.9 and R ecurrent major depressive disorder, in partial remission F33.41 [facility] [address] [id number][place] [id number] Feb, [facility] [address] [id number][place] [id number] Feb, Recurrent major depressive disorder, in partial remission F33.[address] [facility] [address] [id number][place] [id number] Jan, [facility] [address] [id number][place] [id number] Jan, Benign essential hypertension I10 ; Robert a R60.9 and Hyperlipidemia, unspecified hyperlipidemia type E78.[address] [facility] [address] [id number][place] [id number] Jan, Recurrent major depressive disorder, in partial remission F33.41 [facility] [address] [id number] [facility] [id number] Jan, [facility] [address] [id number][place] [id number] Jan, [facility] [address] [id number], [place] [id number] Jan, [facility] [address] [facility] [id number] [address] [place] [address] Jan, [facility] [address] [facility] [id number] [address] [place] [address] Dec, [facility] [address] [facility] [id number] [address] [place] [address] Nov, [facility] [address] [facility] [id number] [address] [place] [address] Nov, Major depression F32.9 [facility] [address] [facility] [id number] [address] [place] [address] Nov, [facility] [address] [facility] [id number] [address] [place] [address] Nov, [facility] [address] [facility] [id number] [address] [place] [address] Nov, Major depressive disorder, r ecurrent episode, mild F33.0 and Anxiety F41.[address] [id number][place] [id number] Nov, [id number] [place] [address] [id number] October, Left elbow pain M25.522 and Other season al allergic rhinitis J30.[id number] [place] [address] [id number] October, [place] [address] [facility] [id number] [address] [place] [address] October, Major depressive disorder, r ecurrent, moderate F33.1 [place] [address] [facility] [id number] [address] [place] [address] October, Major depression F32.9 [place] [address] [facility] [id number] [address] [place] [address] Sep, [place] or callus L84 and Onych omycosis B35.1 [place] [address] [facility] [id number] [address] [place] [address] Sep, Major depressive disorder, r ecurrent, moderate F33.1 [place] [address] [facility] [id number] [address] [place] [address] Sep, Major depression F32.9 [place] [address] [facility] [id number] [address] [place] [address] Sep, Moderate episode of recurren t major depressive disorder F33.[address] [id number] [place] [address] [id number] Sep, Muscle strain T14.8 [facility] [address] [facility] [id number] [address] [place] [address] Aug, Major depression F32.9 [place] [address] [facility] [id number] [address] [place] [address] Aug, Major depression F32.9 [facility] [address] [place] [id number] [address] [place] [address] Jul, Morbid obesity E66.01 and Ma cora depression F32.9 [facility] [address] [facility] [id number] [address] [place] [address] Jul, Depression, major, recurrent , moderate F33.[id number] [place] [address] [id number] Jul, [facility] [address] [address] Jul, [facility] [address] [address] Jul, Major depression F32.9 and M orbid obesity E66.[id number] [place] [address] [id number] Jul, Type II diabetes mellitus E11.9 ; Callus of foot L84 ; Benign essential hypertension I10 and Renal insufficiency N28.9 [facility] [address] [address] 09 Jul, 2015 Depression, major, recurrent , moderate F33.1 [facility] [address] [place] [id number] [place] [address] Jul, Major depression F32.9 [facility] [address] [place] [id number] [address] [place] [address] Jul, [facility] [address] [address] Jun, Major depression F32.9 [facility] [address] [place] [id number] [address] [place] [address] Jun, Major depressive disorder, r ecurrent, moderate F33.1 [facility] [address] [place] [id number] [address] [place] [address] 08 Jun, 2015 [facility] [address] [facility] [id number] [address] [place] [address] 08 Jun, 2015 Major depressive disorder, r ecurrent, moderate F33.1 and Major depression F32.[address] [place] [id number] [place] [address] [id number] Jun, Type II diabetes mellitus E11.9 [facility] [address] [facility] [id number] [address] [place] [address] Jun, Depression, major, recurrent , moderate F33.1 [place] [address] [facility] [id number] [address] [place] [address] May, Major depressive disorder, r ecurrent, moderate F33.1 [place] [address] [place] [id number] [place] [address] May, [place] [id number] [place] [address] [id number] May, Edema R60.9 [place] [address] [facility] [id number] [address] [place] [address] May, Insomnia G47.00 and Major de pression F32.[address] [place] [id number] [place] [address] [id number] 15 May, 2015 Morbid obesity E66.01 ; Edema R60.9 ; Sh ortness of breath R06.02 ; Benign essential hypertension I10 and Renal insufficiency N28.[address] [place] [id number] [place] [address] [id number] 14 May, 2015 Hyperlipemia 272.4 and Renal insufficien cy N28.9 [place] [address] [facility] [id number] [address] [place] [address] Apr, Major depression F32.9 [place] [address] [place] [id number] [address] [place] [address] Apr, [place] [address] [facility] [id number] [address] [place] [address] Apr, Major depressive disorder, r ecurrent, moderate F33.1 [facility] [id number] [place] [address] [id number] Apr, Type II diabetes mellitus E11.9 ; Benign essential hypertension I10 ; Edema R60.9 and Renal insufficiency N28.9 [place] [address] [facility] [id number] [address] [place] [address] Mar, Major depressive disorder, r ecurrent, moderate F33.1 [place] [address] [facility] [id number] [address] [place] [address] Mar, [place] [address] [facility] [id number] [address] [place] [address] Mar, Major depression F32.9 [facility] [address] [facility] [address] [id number] [place] [address] [id number] Mar, Morbid obesity E66.01 ; Benign essential hypertension I10 and Type II diabetes mellitus E11.9 [place] [address] [facility] [id number] [address] [place] [address] Feb, Major depressive disorder, r ecurrent, moderate F33.1 [place] [address] [facility] [id number] [address] [place] [address] Feb, Major depressive disorder, r ecurrent episode, in partial or unspecified remission 296.35 ; Anxiety state, unspecified 300.00 and Morbid obesity 278.01 [place] [address] [facility] [id number] [address] [place] [address] Feb, [facility] [id number] [place] [address] [id number] Feb, Vomiting 787.03 and Viral syndrome 079.9 9 [place] [address] [facility] [id number] [address] [place] [address] 15 Feb, 2015 Major depression, recurrent 296.30 ; Generalized anxiety disorder 300.02 and No condition on Henrietta II V71.09 [facility] [address] [facility] [address] [id number][place] [id number] Feb, Skin tag 701.9 [facility] [address] [facility] [id number] [address] [place] [address] Feb, [facility] [address] [place] [id number] [address] [place] [address] Jan, Depression, major, recurrent , moderate 296.32 [facility] [address] [place] [address] AVE [id number] [place] [address] [id number] Jan, Nausea and vomiting 787.01 ; Rib pain on right side 786.50 and Fall on or from sidewalk curb E880.1 [facility] [address] [facility] [id number] [address] [place] [address] Jan, [facility] [address] [place] [id number] [address] [place] [address] Jan, Major depressive disorder, r ecurrent episode, in partial or unspecified remission 296.35 and Anxiety state, unspecified 300.[id number] [place] [address] [id number] Jan, [facility] [address] [facility] [id number] [address] [place] [address] Jan, Depression, major, recurrent , moderate 296.32 [facility] [address] [place] [id number] [address] [place] [address] Jan, Major depression, recurrent 296.30 ; No condition on Henrietta II V71.09 and No condition on axis III V71.[id number] [place] [address] [id number] Jan, Drug-induced nausea and vomiting 787.01 [facility] [address] [facility] [id number] [address] [place] [address] Jan, Depression, major, recurrent , moderate 296.32 [facility] [address] [place] [id number] [address] [place] [address] Dec, Depression, major, recurrent , moderate 296.32 [facility] [address] [id number] [place] [address] [id number] Dec, Morbid obesity 278.01 ; Metabolic syndro me 277.7 ; Hyperlipemia 272.4 ; Benign essential hypertension 401.1 ; Dietary counseling V65.3 ; Exercise counseling V65.41 and Inflamed skin tag 701.[address] [address] Dec, Depression, major, recurrent , moderate 296.[address] [address] Dec, [address] [address] Dec, Major depression, recurrent 296.30 ; Anxiety, generalized 300.02 and No condition on Henrietta II V71.09 [place] [id number] [address] [place] [address] Dec, Depression, major, recurrent , moderate 296.[address] [address] Dec, Major depressive disorder, r ecurrent episode, moderate 296.32 [place] [id number] [address] [place] [address] Dec, Depression, major, recurrent , moderate 296.32 [place] [id number] [address] [place] [address] Dec, Depression, major, recurrent , moderate 296.[address] [address] Dec, Depression, major, recurrent , moderate 296.32 [place] [id number] [address] [place] [address] Dec, Depression, major, recurrent , moderate 296.32 [place] [id number] [address] [place] [address] 17 Nov, 2014 Depression, major, recurrent , moderate 296.32 [facility] [address] [place] [id number] [place] [address] 16 Nov, 2014 Major depression 296.20 ; So cial phobia 300.23 and No condition on Henrietta II V71.09 [facility] [address] [place] [id number] [address] [place] [address] 16 Nov, 2014 Depression, major, recurrent , moderate 296.32 [facility] [address] [place] [id number] [place] [address] 09 Nov, 2014 Major depressive disorder, r ecurrent episode, moderate 296.32 and Generalized anxiety disorder 300.02 [facility] [address] [place] [id number] [place] [address] 09 Nov, 2014 Depression, major, recurrent , moderate 296.32 [facility] [address] [address] 04 Nov, 2014 Depression, major, recurrent , moderate 296.32 [facility] [address] [address] October, Generalized anxiety disorder 300.02 ; No condition on Henrietta II V71.09 and Major depressive disorder, recurrent 296.30 [facility] [address] [place] [id number] [address] [place] [address] Sep, [facility] [address] [place] [id number] [address] [place] [address] Sep, [facility] [address] [place] [id number] [address] [place] [address] Aug, [facility] [address] [address] Aug, [facility] [address] [place] [id number] [address] [place] [address] Aug, [facility] [address] [place] [id number] [place] [address] 23 Aug, 2014 [facility] [address] [id number] [facility] [place] [address] 20 Aug, 2014 [facility] [address] [id number] [address] [place] [address], [place] [address] 20 Aug, 2014 [facility] [address] [id number] [address] [place] [address], [place] [address] 20 Aug, 2014 [facility] [address] [id number] [address] [place] [address], [place] [address] 20 Aug, 2014 [facility] [address] [id number] [address] [place] [address], [place] [address] Aug, [facility] [address] [id number] [address] [place] [address], [place] [address] Aug, [facility] [address] [id number] [address] [place] [address], [place] [address] Aug, [facility] [address] [id number] [address] [place] [address], [place] [address] Aug, [facility] [address] [id number] [address] [place] [address], [place] [address] Aug, [facility] [address] [id number] [address] [place] [address], [place] [address] Aug, [facility] [address] [id number] [address] [place] [address], [place] [address] Aug, [facility] [address] [id number] [address] [place] [address], [place] [address] Aug, [facility] [address] [id number] [address] [place] [address], [place] [address] Aug, [facility] [address] [id number] [address] [place] [address], [place] [address] Aug, [facility] [address] [id number] [address] [place] [address], [place] [address] 24 Jul, 2014 [facility] [address] [id number] [address] [place] [address], [place] [address] Jul, [facility] [address] [id number] [address] [place] [address], [place] [address] Jul, [facility] [address] [id number] [address] [place] [address], [place] [address] Jul, [facility] [address] [id number] [address] [place] [address], [place] [address] Jul, [facility] [address] [id number] [address] [place] [address], [place] [address] Jul, [facility] [address] [id number] [address] [place] [address], [place] [address] Jun, [facility] [address] [id number] [address] [place] [address], [place] [address] Jun, [facility] [address] [id number] [address] [place] [address], [place] [address] Jun, [facility] [address] [id number] [address] [place] [address], [place] [address] Jun, [facility] [address] [id number] [address] [place] [address], [place] [address] Jun, [facility] [address] [id number] [address] [place] [address] Jun, [facility] [address] [id number] [address] [place] [address] Jun, [facility] [address] [id number] [address] [place] [address] Jun, [facility] [address] [id number] [address] [place] [address], [place] [address] Jun, [facility] [address] [id number] [address] [place] [address] Jun, [facility] [address] [id number] [address] [place] [address] Jun, [facility] [address] [id number] [address] [place] [address], [place] [address] Jun, [facility] [address] [id number] [place] [id number] Jun, [facility] [address] [id number] [address] [place] [address], [place] [address] Jun, [facility] [address] [id number] [address] [place] [address], [place] [address] Jun, [facility] [address] [id number] [address] [place] [address], [place] [address] Jun, [facility] [address] [id number] [address] [place] [address] May, [facility] [address] [id number] [address] [place] [address], [place] [address] May, [facility] [address] [id number] [address] [place] [address], [place] [address] May, [facility] [address] [id number] [address] [place] [address], [place] [address] May, [facility] [address] [id number] [address] [place] [address], [place] [address] Apr, [facility] [address] [id number] [address] [place] [address] Apr, [facility] [address] [id number] [address] [place] [address] Apr, [facility] [address] [id number] [address] [place] [address], [place] [address] Apr, [facility] [address] [id number] [address] [place] [address] Apr, [facility] [address] [id number] [address] [place] [address], [place] [address] Apr, [facility] [address] [id number] [address] [place] [address], [place] [address] Apr, [facility] [address] [id number] [address] [place] [address], [place] [address] Apr, [facility] [address] [id number] [address] [place] [address], [place] [address] Apr, [facility] [address] [id number] [address] [place] [address], [place] [address] Apr, [facility] [address] [id number] [address] [place] [address], [place] [address] Apr, [facility] [address] [id number] [address] [place] [address], [place] [address] Apr, [facility] [address] [id number] [address] [place] [address], [place] [address] Apr, [facility] [address] [id number] [address] [place] [address], [place] [address] Apr, [facility] [address] [id number] [address] [place] [address], [place] [address] Apr, [facility] [address] [id number] [address] [place] [address], [place] [address] Apr, [facility] [address] [id number] [address] [place] [address], [place] [address] Apr, [facility] [address] [id number] [address] [place] [address], [place] [address] Apr, [facility] [address] [id number] [address] [place] [address], [place] [address] Apr, [facility] [address] [id number] [address] [place] [address], [place] [address] Apr, [facility] [address] [id number] [address] [place] [address], [place] [address] Mar, [facility] [address] [id number] [address] [place] [address], [place] [address] Mar, [facility] [address] [id number] [address] [place] [address], [place] [address] Mar, [facility] [address] [id number] [address] [place] [address], [place] [address] Mar, [facility] [address] [id number] [address] [place] [address], [place] [address] Mar, [facility] [address] [id number] [address] [place] [address], [place] [address] Mar, [facility] [address] [id number] [address] [place] [address], [place] [address] Mar, [facility] [address] [id number] [address] [place] [address], [place] [address] Mar, [facility] [address] [id number] [address] [place] [address], [place] [address] Mar, [facility] [address] [id number] [address] [place] [address], [place] [address] Mar, [facility] [address] [id number] [address] [place] [address], [place] [address] Feb, [facility] [address] [id number] [address] [place] [address], [place] [address] Feb, [facility] [address] [id number] [address] [place] [address], [place] [address] Feb, [facility] [address] [id number] [address] [place] [address], [place] [address] Feb, [facility] [address] [id number] [address] [place] [address], [place] [address] Jan, [facility] [address] [id number] [address] [place] [address], [place] [address] Jan, [facility] [address] [id number] [address] [place] [address], [place] [address] Jan, [facility] [address] [id number] [address] [place] [address], [place] [address] Jan, [facility] [address] [id number] [address] [place] [address], [place] [address] Jan, [facility] [address] [id number] [address] [place] [address], [place] [address] Jan, [facility] [address] [id number] [address] [place] [address], [place] [address] Dec, [facility] [address] [id number] [address] [place] [address], [place] [address] Dec, [facility] [address] [id number] [address] [place] [address], [place] [address] Nov, [facility] [address] [id number] [address] [place] [address], [place] [address] Nov, [facility] [address] [id number] [address] [place] [address], [place] [address] Nov, [facility] [address] [id number] [address] [place] [address], [place] [address] Nov, [facility] [address] [id number] [address] [place] [address], [place] [address] Nov, [facility] [address] [id number] [address] [place] [address], [place] [address] Nov, [facility] [address] [id number] [address] [place] [address], [place] [address] Sep, [facility] [address] [id number] [address] [place] [address], [place] [address] Sep, [facility] [address] [id number] [address] [place] [address], [place] [address] Sep, [facility] [address] [id number] [address] [place] [address], [place] [address] Sep, [facility] [address] [id number] [address] [place] [address], [place] [address] Aug, [facility] [address] [id number] [address] [place] [address], [place] [address] Aug, [facility] [address] [id number] [address] [place] [address], [place] [address] Jul, [facility] [address] [id number] [address] [place] [address], [place] [address] Jul, [facility] [address] [id number] [address] [place] [address], [place] [address] Jun, [facility] [address] [id number] [address] [place] [address], [place] [address] Jun, [facility] [address] [id number] [address] [place] [address], [place] [address] Jun, [facility] [address] [id number] [address] [place] [address], [place] [address] Jun, [facility] [address] [id number] [address] [place] [address], [place] [address] May, [facility] [address] [id number] [address] [place] [address], [place] [address] 24 May, [address] [facility] [address] [id number] [address] [place] [address], [place] [address] May, [facility] [address] [id number] [address] [place] [address], [place] [address] May, [facility] [address] [id number] [address] [place] [address], [place] [address] May, [facility] [address] [id number] [address] [place] [address], [place] [address] May, [facility] [address] [id number] [address] [place] [address], [place] [address] Apr, [facility] [address] [id number] [address] [place] [address], [place] [address] Apr, [facility] [address] [id number] [address] [place] [address], [place] [address] Apr, [facility] [address] [id number] [address] [place] [address], [place] [address] Apr, [facility] [address] [id number] [address] [place] [address], [place] [address] Mar, [facility] [address] [id number] [address] [place] [address], [place] [address] Mar, [facility] [address] [id number] [address] [place] [address], [place] [address] Mar, [facility] [address] [id number] [address] [place] [address], [place] [address] Mar, [facility] [address] [id number] [address] [place] [address], [place] [address] Feb, [facility] [address] [id number] [id number] Jan, [facility] [address] [id number] [address] [place] [address], [place] [address] Jan, [facility] [address] [id number] [address] [place] [address], [place] [address] Dec, [facility] [address] [id number] [address] [place] [address] Dec, [facility] [address] [id number] [address] [place] [address], [place] [address] Dec, [facility] [address] [id number] [place] [id number] Dec, [facility] [address] [id number] [address] [place] [address], [place] [address] Nov, [facility] [address] [id number] [address] [place] [address], [place] [address] 14 Nov, 2012 [facility] [address] [id number] [address] [place] [address], [place] [address] Nov, [facility] [address] [id number] [address] [address] 11 Nov, 2012 [facility] [address] [facility] [id number] [address] [place] [address] Nov, [facility] [address] [facility] [id number] [address] [place] [address] October, [facility] [address] [facility] [id number] [address] [place] [address] October, [facility] [address] [facility] [id number] [address] [place] [address] Aug, [facility] [address] [facility] [id number] [address] [place] [address] 13 Nov, 2011 IMMUNIZATIONS No Known Immunizations SOCIAL HISTORY Never Assessed REASON FOR VISIT PLAN OF CARE VITAL SIGNS MEDICATIONS Unknown Medications RESULTS No Results PROCEDURES Procedure Date Ordered Result Body Site CARE COORDINATION Apr 14, 2014 COMPREHENSIVE CARE MANAGEMENT Apr 14, 2014 INSTRUCTIONS MEDICATIONS ADMINISTERED No Known Medications [...] ANNMARIE 2014 Surgical History gastric sleeve 03/2016 Hospitalization History gastric sleeve Hospitalization History [facility] Trouble with left shoulder blade 08/2017
--- OUTSIDE RECORDS SUMMARY | 2019-11-29 09:07 | XMS REPORT ---
Author Author Curt DIAZ Organization [facility] Address [address] [place] [address] Care Team Providers Care Athletic Instructor Name Role Phone JOE CHRIS Unavailable PROBLEMS Type Condition ICD9-CM Code TZH95-XA Code Onset Dates Condition S tatus SNOMED Code Problem Insomnia G47.00 Active 126706393 Problem Hyperlipemia E78.5 Active 6180344 4 Problem Morbid obesity E66.01 Active 98445 6002 Problem Benign essential hypertension I10 Active 7179120 Problem Renal insufficiency N28.9 Active 360506124 Problem Edema R60.9 Active 872891710 Problem Severe episode of recurrent major depressive disorder, without psychotic features F33.2 Active 23320253 Problem Metabolic syndrome E88.81 Active 2 34453403 Problem DANIELA (generalized anxiety disorder) F41.1 Active 56520472 Problem BMI 45.0-49.9, adult Z68.42 Active 457683537 Problem Sciatica, right side M54.31 Active [id number] Problem Hammer toe of second toe of right foot M20.41 Active 283215457 Problem Mixed obsessional thoughts and acts F42.2 Active 56769085 Problem Hammer toe of right foot M20.41 Activ e 354005368 Problem Vitamin D deficiency E55.9 Active 59656237 Problem Chronic fatigue R53.82 Active 8422 9001 Problem Other chronic pain G89.29 Active 8 8278904 Problem Borderline personality disorder F60.3 Active 72735792 Problem Callous ulcer, limited to breakdown of skin L98.49 1 Active ALLERGIES No Information ENCOUNTERS Encounter Location Date Diagnosis [facility] [address] [facility] [id number] [place] [id number] Jun, [facility] [address] [facility] [id number] [address] [place] [id number] Mar, [facility] [address] [facility] [id number] [address] [place] [phone] Feb, [facility] [address] [facility] [id number] [address] [place] [phone] Feb, [facility] [address] [facility] [id number] [address] [place] [phone] Jan, [facility] [address] [facility] [id number] [address] [place] [phone] Jan, [facility] [address] [facility] [id number] [address] [place] [phone] Jan, [facility] [id number] [place] [address] [id number] Jan, Callus of heel L84 ; Fissure in skin R23 .4 and Hammer toe of second toe of right foot M20.41 [facility] [place] [id number] [place] [address] [id number] Jan, [facility] [address] [place] [id number] [address] [place] [phone] Jan, [place] [address] [place] [id number] [address] [place] [phone] Jan, [facility] [address] [facility] [id number] [address] [place] [address] Jan, Severe episode of recurrent major depressive disorder, without psychotic features F33.2 ; DANIELA (generalized anxiety disorder) F41.1 ; Mixed obsessional thoughts and acts F42.2 and Borderline personality disorder F60.3 [facility] [address] [facility] [id number] [address] [place] [phone] Jan, [facility] [address] [id number] [place] [id number] Jan, Benign essential hypertension I10 [facility] [place] [address] [id number] [place] [id number] Dec, Callous ulcer, limited to breakdown of s kin L98.491 and Morbid obesity E66.01 [facility] [address] [facility] [id number] [address] [place] [phone] Dec, [facility] [address] [facility] [id number] [address] [place] [phone] Dec, [facility] [address] [facility] [id number] [address] [place] [phone] Dec, [facility] [address] [facility] [id number] [address] [place] [phone] Dec, [facility] [address] [facility] [id number] [address] [place] [phone] Dec, Severe episode of recurrent major depressive disorder, without psychotic features F33.2 [facility] [address] [facility] [id number] [address] [place] [phone] Dec, DANIELA (generalized anxiety dis order) F41.1 ; Severe episode of recurrent major depressive disorder, without psychotic features F33.2 ; Mixed obsessional thoughts and acts F42.2 and 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 [facility] [place] [address] [id number] [place] [id number] Dec, Morbid obesity E66.01 [facility] [address] [facility] [id number] [address] [place] [address] Dec, [facility] [address] [facility] [id number] [address] [place] [phone] Dec, [address] [phone] Nov, [facility] [place] [id number] [place] [address] [id number] Nov, [facility] [address] [facility] [id number] [address] [place] [phone] Nov, [facility] [address] [facility] [id number] [address] [place] [address] Nov, [facility] [address] [facility] [id number] [address] [place] [phone] Nov, DANIELA (generalized anxiety dis order) F41.1 ; Severe episode of recurrent major depressive disorder, without psychotic features F33.2 ; Mixed obsessional thoughts and acts F42.2 and 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 [facility] [address] [id number] [place] [id number] Nov, Morbid obesity E66.01 [facility] [address] [place] [id number] [address] [place] [phone] Nov, [place] [address] [facility] [id number] [address] [place] [phone] Nov, DANIELA (generalized anxiety dis order) F41.1 ; Mixed obsessional thoughts and acts F42.2 ; Severe episode of recurrent major depressive disorder, without psychotic features F33.2 and 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 [id number] [place] [id number] October, Morbid obesity E66.[address] [id number] [place] [address] [id number] October, Benign essential hypertension I10 and Mo rbid obesity E66.[address] [id number] [place] [address] [id number] October, [place] [address] [facility] [id number] [address] [place] [address] October, Severe episode of recurrent major depressive disorder, without psychotic features F33.[address] [id number] [place] [id number] October, Morbid obesity E66.[address] [id number] [place] [address] [id number] October, [facility] [address] [facility] [id number] [address] [place] [phone] October, Severe episode of recurrent major depressive disorder, without psychotic features F33.2 ; DANIELA (generalized anxiety disorder) F41.1 ; Mixed obsessional thoughts and acts F42.2 and 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 [id number] [place] [id number] October, Morbid obesity E66.01 [facility] [address] [facility] [id number] [address] [place] [address] [id number] Sep, Dental examination Z01.[id number] [place] [address] [id number] Sep, [facility] [address] [facility] [id number] [place] [address] Sep, Sore in mouth K13.79 and Mor bid obesity E66.01 [facility] [address] [facility] [id number] [address] [place] [phone] Sep, Dental examination Z01.20 [facility] [address] [facility] [id number] [address] [place] [phone] Sep, Anxiety disorder, unspecifie d F41.[address] [id number] [place]ONDON[place] [id number] Sep, Mouth ulcer K12.[address] [id number] [place] [id number] Sep, Morbid obesity E66.[address] [id number] [place] [address] [id number] Sep, Allergic rhinitis, unspecified seasonali ty, unspecified trigger J30.9 and Shortness of breath R06.[address] [id number] [place] [id number] Sep, 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 [id number] [place] [address] [id number] Aug, Mouth abscess K12.2 ; Mouth ulcer K12.1 ; Bloating R14.0 and Morbid obesity E66.[address] [id number] [place] [id number] Aug, [address] [id number] [place] [id number] Aug, [facility] [address] [id number] [place] [id number] Jul, Major depressive disorder, recurrent, mo derate F33.1 ; Abscess of arm, left L02.414 ; BMI 45.0-49.9, adult Z68.42 and Morbid obesity E66.01 [facility] [address] [id number] [place] [id number] Jul, [facility] [place] [address] [place] [address] AVE [id number] [place] [id number] Jul, [facility] [place] [address] [place] [address] AVE [id number] [place] [id number] Jun, Pain in right knee M25.561 and Other chr onic pain G89.29 [facility] [address] [id number] [place] [id number] Jun, Benign essential hypertension I10 ; BMI 45.0-49.9, adult Z68.42 ; Morbid obesity E66.01 ; Vitamin D deficiency E55.9 ; Insomnia G47.00 ; 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 ; Edema R60.9 ; Recurrent major depressive disorder, in partial remission F33.41 ; Chronic fatigue R53.82 ; Acute pain of right knee M25.561 ; Metabolic syndrome E88.81 and Irritable mood R45.4 [facility] [address] [place] [address] Jun, [facility] [address] [id number] [place] [id number] Jun, Irritable mood R45.4 [facility] [address] [place] [address] May, [facility] [address] [place] [id number] [address] [place] [phone] May, [facility] [address] [place] [id number] [address] [place] [phone] 13 May, 2018 Recurrent major depressive d isorder, in partial remission F33.41 ; Mixed obsessional thoughts and acts F42.2 ; 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 and BMI 45.0-49.9, adult Z68.42 [facility] [address] [facility] [id number] [address] [place] [address] Apr, [facility] [address] [facility] [id number] [address] [place] [phone] Apr, [facility] [address] [facility] [id number] [address] [place] [phone] Apr, [facility] [address] [facility] [id number] [address] [place] [phone] Apr, [facility] [address] [facility] [id number] [address] [place] [address] Mar, Mixed obsessional thoughts a nd acts F42.2 ; Recurrent major depressive disorder, in partial remission F33.41 ; DANIELA (generalized anxiety disorder) F41.1 and BMI 45.0-49.9, adult Z68.[address] [place] [address] [id number] [place] [id number] Mar, [facility] [place] [id number] [place] [address] [id number] Mar, BMI 45.0-49.9, adult Z68.42 ; Instabilit y of right knee joint M25.361 and Rash R21 [facility] [address] [facility] [id number] [address] [place] [phone] Jan, Recurrent major depressive d isorder, in partial remission F33.41 ; Mixed obsessional thoughts and acts F42.2 and BMI 45.0-49.9, adult Z68.42 [facility] [address] [id number] [place] [id number] Jan, [facility] [place] [id number] [place] [address] [id number] Jan, Benign essential hypertension I10 ; BMI 45.0-49.9, adult Z68.42 ; Metabolic syndrome E88.81 and Allergic rhinitis, unspecified seasonality, unspecified trigger J30.9 [facility] [address] [facility] [id number] [address] [place] [phone] Dec, DANIELA (generalized anxiety dis order) F41.1 and Depressive disorder, not elsewhere classified F32.9 [facility] [address] [id number] [place] [id number] Dec, Recurrent major depressive disorder, in partial remission F33.41 [facility] [address] [id number] [place] [id number] Dec, [facility] [address] [id number] [place] [id number] Nov, [facility] [address] [id number] [place] [id number] Nov, Recurrent major depressive disorder, in partial remission F33.41 [facility] [address] [facility] [id number] [address] [place] [phone] Nov, Recurrent major depressive d isorder, in partial remission F33.41 ; Mixed obsessional thoughts and acts F42.2 ; DANIELA (generalized anxiety disorder) F41.1 and BMI 45.0-49.9, adult Z68.42 [facility] [address] [id number] [place] [id number] Nov, [facility] [address] [id number] [place] [id number] Nov, Other conjunctivitis of both eyes H10.89 and Sciatica, right side M54.31 [facility] [address] [id number] [place] [id number] Nov, [facility] [address] [id number] [place] [id number] Nov, [facility] [address] [id number] [place] [id number] October, [facility] [address] [id number] [place], [place] [id number] October, [facility] [address] [facility] [id number] [place] [address] October, BMI 45.0-49.9, adult Z68.42 ; Mixed obsessional thoughts and acts F42.2 ; Recurrent major depressive disorder, in partial remission F33.41 and DANIELA (generalized anxiety disorder) F41.1 [facility] [address] [id number] [place] [id number] October, Benign essential hypertension I10 ; Morb id obesity E66.01 and BMI 45.0-49.9, adult Z68.42 [facility] [address] [id number] [place] [id number] Sep, [facility] [address] [id number] [place] [id number] Sep, [facility] [address] [id number] [place] [id number] Sep, [facility] [address] [id number] [place] [id number] Sep, Hospital discharge follow-up Z09 ; Aller gic rhinitis, unspecified seasonality, unspecified trigger J30.9 and Shortness of breath R06.02 [facility] [address] [id number] [place] [id number] Sep, Recurrent major depressive disorder, in partial remission F33.41 [facility] [address] [id number] [place] [id number] Aug, Irritable mood R45.4 [facility] [address] [facility] [id number] [place] [address] Aug, [facility] [address] [id number] [place] [id number] Jul, Benign essential hypertension I10 ; Robert a R60.9 and Impacted cerumen of left ear H61.22 [facility] [address] [facility] [id number] [address] [place] [phone] 14 Jul, 2017 Major depression F32.9 ; Rec urrent major depressive disorder, in partial remission F33.41 and Anxiety F41.9 [facility] [address] [facility] [id number] [address] [place] [address] Jun, Major depression F32.9 ; Rec urrent major depressive disorder, in partial remission F33.41 and Anxiety F41.9 [facility] [address] [id number] [place] [id number] Jun, Major depression F32.9 ; Morbid obesity E66.01 ; Irritable mood R45.4 ; Hand weakness R29.898 and Vitamin D deficiency E55.9 [facility] [address] [id number] [place] [id number] Jun, [facility] [address] [id number] [place] [id number] May, Major depression F32.9 [facility] [address] [facility] [id number] [address] [place] [address] May, Major depression F32.9 [facility] [address] [id number] [place] [id number] May, BMI 50.0-59.9, adult Z68.43 ; Major depr ession F32.9 ; Anxiety F41.9 ; Hypertrophic toenail L60.2 and Pain of left great toe M79.675 [facility] [address] [id number] [place] [id number] May, Recurrent major depressive disorder, in partial remission F33.41 [facility] [address] [facility] [id number] [address] [place] [address] Apr, [facility] [address] [id number] [place] [id number] Apr, [facility] [address] [facility] [id number] [address] [place] [address] 15 Apr, 2017 Major depression F32.9 [facility] [address] [id number] [place] [id number] Apr, Severe episode of recurrent major depres sive disorder, without psychotic features F33.2 ; Anxiety F41.9 and Insomnia G47.00 [facility] [address] [id number] [place] [id number] Apr, [facility] [address] [facility] [id number] [address] [place] [address] Apr, [facility] [id number] [place] [address] [id number] Apr, [facility] [address] [id number] [place] [id number] Mar, [facility] [id number] [place] [address] [id number] Mar, Allergic conjunctivitis of both eyes H10 .13 [facility] [address] [facility] [id number] [address] [place] [address] Mar, Major depression F32.9 [facility] [address] [id number] [place]OND[place], [place] [id number] Mar, Metabolic syndrome E88.81 ; History of g astric bypass Z98.890 ; Benign essential hypertension I10 ; Allergic conjunctivitis of both eyes H10.13 and Morbid obesity E66.01 [facility] [address] [facility] [id number] [address] [place] [address] Mar, Major depression F32.9 [facility] [address] [id number] [place] [id number] Feb, [facility] [address] [facility] [id number] [address] [place] [address] Feb, Major depression F32.9 [facility] [address] [id number] [place] [id number] Feb, Subacute maxillary sinusitis J01.00 and Bronchitis J40 [facility] [address] [facility] [id number] [address] [place] [address] Feb, Major depressive disorder, r ecurrent, moderate F33.1 [facility] [address] [id number] [place] [id number] Jan, [facility] [address] [id number] [place] [id number] Jan, Acute non-recurrent maxillary sinusitis J01.00 and Skin tag L91.8 [facility] [place] [address] [facility] [address] [address] [id number] [place]OND[place], [place] [id number] Jan, Cough R05 and Sinus congestion R09.81 [facility] [place] [address] [facility] [id number] [place] [id number] Jan, [facility] [place] [address] [place] [address] AV [id number] [place] [id number] Jan, Benign essential hypertension I10 ; Hist ory of gastric bypass Z98.890 and Nausea and vomiting in adult R11.2 [facility] [address] [facility] [id number] [address] [place] [phone] Jan, Major depressive disorder, r ecurrent, moderate F33.1 [facility] [address] [facility] [id number] [address] [place] [address] Dec, Insomnia G47.00 ; Recurrent major depressive disorder, in partial remission F33.41 and Morbid obesity E66.01 [facility] [address] [id number] [place] [id number] Dec, [facility] [address] [id number] [place] [id number] Dec, Chronic bacterial conjunctivitis of left eye H10.402 [facility] [address] [id number] [place] [id number] Nov, [facility] [address] [id number] [place] [id number] Nov, Dental examination Z01.20 [facility] [address] [id number] [place], [place] [id number] Nov, Benign essential hypertension I10 ; Hist ory of gastric bypass Z98.890 and Nausea and vomiting in adult R11.2 [facility] [address] [facility] [id number] [address] [place] [phone] 13 Nov, 2016 Major depressive disorder, r ecurrent, moderate F33.1 ; Generalized anxiety disorder F41.1 and Insomnia due to other mental disorder F51.05 [place] [address] [facility] [id number] [address] [place] [address] 12 Nov, 2016 Recurrent major depressive d isorder, in partial remission F33.41 ; Insomnia G47.00 and Morbid obesity E66.01 [facility] [address] [facility] [id number] [place] [id number] October, Abscess of left arm L02.414 [facility] [address] [facility] [id number] [address] [place] [address] October, Morbid obesity E66.01 ; Lida r depression F32.9 and Recurrent major depressive disorder, in partial remission F33.41 [place] [address] [facility] [address] [id number] [place] [id number] Sep, Benign essential hypertension I10 ; Morb id obesity E66.01 ; S/P gastric bypass Z98.84 ; Abscess L02.91 and Chronic bacterial conjunctivitis of left eye H10.[address] [id number] [place] [id number] Sep, Dental examination Z01.20 [facility] [address] [facility] [id number] [address] [place] [id number] Sep, Morbid obesity E66.01 ; Lida r depression F32.9 and Recurrent major depressive disorder, in partial remission F33.41 [place] [id number] [facility] [id number] [address] [place] [id number] Jul, [place] [address] [address] [place] [id number] [address] [place] [id number] Jul, Major depressive disorder, r ecurrent, moderate F33.1 [place] [address] [address] [facility] [id number] [address] [place] [id number] Jul, Major depressive disorder, r ecurrent, moderate F33.1 and Generalized anxiety disorder F41.1 [facility] [id number] [place] [id number] Jul, Cough R05 [place] [address] [facility] [id number] [address] [place] [id number] Jul, Morbid obesity E66.01 ; Lida r depression F32.9 and Recurrent major depressive disorder, in partial remission F33.41 [facility] [id number] [place] [id number] Jul, [facility] [id number] [place] [id number] Jul, [place] [id number] [place] [id number] Jul, Gastroenteritis K52.9 and Cough R05 [facility] [id number] [place] [id number] Jun, Acute bacterial conjunctivitis of left e ye H10.32 [place] [address] [address] [place] [address] Jun, [place] [address] [place] [id number] [address] [place] [address] Jun, Recurrent major depressive d isorder, in partial remission F33.41 [place] [address] [place] [id number] [address] [place] [address] May, Major depression F32.9 and M orbid obesity E66.01 [place] [address] [place] [id number] [address] [place] [address] May, [facility] [address] [id number] [place] [id number] May, Thrush B37.0 [place] [address] [facility] [id number] [address] [place] [address] Apr, Major depressive disorder, r ecurrent, moderate F33.1 [place] [address] [facility] [id number] [address] [place] [address] Apr, Insomnia G47.00 ; Major depr ession F32.9 and Recurrent major depressive disorder, in partial remission F33.41 [place] [address] [facility] [id number] [address] [place] [address] Apr, [place] [address] [facility] [id number] [address] [place] [address] Apr, Major depression F32.9 and R ecurrent major depressive disorder, in partial remission F33.[address] [place] [id number] [place] [address] [id number] Mar, Benign essential hypertension I10 ; Morb id obesity E66.01 ; Impacted cerumen of both ears H61.23 ; Laceration of finger of right hand, initial encounter S61.219A and Encounter for immunization Z23 [facility] [address] [facility] [id number] [address] [place] [address] 17 Mar, 2016 [place] [address] [facility] [id number] [address] [place] [address] Mar, [place] [address] [facility] [id number] [address] [place] [address] Mar, [address] [id number] [place] [id number] Feb, Nausea R11.0 ; Blood in the stool K92.1 and Benign essential hypertension I10 [place] [address] [facility] [id number] [address] [place] [address] Feb, Major depression F32.9 and R ecurrent major depressive disorder, in partial remission F33.[address] [id number] [place] [id number] Feb, [facility] [address] [id number] [place] [id number] Feb, Recurrent major depressive disorder, in partial remission F33.[address] [facility] [address] [id number] [place] [id number] Jan, [facility] [address] [id number] [place] [id number] Jan, Benign essential hypertension I10 ; Robert a R60.9 and Hyperlipidemia, unspecified hyperlipidemia type E78.[address] [facility] [address] [id number] [place] [id number] Jan, Recurrent major depressive disorder, in partial remission F33.41 [facility] [address] [id number] [place] [id number] Jan, [facility] [address] [id number] [place] [id number] Jan, [facility] [address] [id number] [place] [id number] Jan, [facility] [address] [facility] [id number] [address] [place] [address] Jan, [facility] [address] [facility] [id number] [address] [place] [address] Dec, [facility] [address] [facility] [id number] [address] [place] [address] Nov, [facility] [address] [facility] [id number] [address] [place] [address] Nov, Major depression F32.9 [facility] [address] [facility] [id number] [address] [place] [address] Nov, [facility] [address] [facility] [id number] [address] [place] [address] Nov, [facility] [address] [facility] [id number] [address] [place] [address] Nov, Major depressive disorder, r ecurrent episode, mild F33.0 and Anxiety F41.[address] [id number] [place] [id number] Nov, [id number] [place] [address] [id number] October, Left elbow pain M25.522 and Other season al allergic rhinitis J30.[id number] [place] [address] [id number] October, [place] [address] [place] [id number] [address] [place] [address] October, Major depressive disorder, r ecurrent, moderate F33.1 [place] [address] [place] [address] October, Major depression F32.9 [place] [address] [place] [id number] [address] [place] [address] Sep, [place] or callus L84 and Onych omycosis B35.1 [place] [address] [place] [id number] [address] [place] [address] Sep, Major depressive disorder, r ecurrent, moderate F33.1 [place] [address] [place] [id number] [address] [place] [address] Sep, Major depression F32.9 [place] [address] [place] [id number] [address] [place] [address] Sep, Moderate episode of recurren t major depressive disorder F33.1 [id number] [place] [address] [id number] Sep, Muscle strain T14.8 [place] [address] [facility] [id number] [address] [place] [address] Aug, Major depression F32.9 [place] [address] [place] [id number] [address] [place] [address] Aug, Major depression F32.9 [facility] [address] [place] [id number] [address] [place] [address] Jul, Morbid obesity E66.01 and Ma cora depression F32.9 [facility] [address] [address] Jul, Depression, major, recurrent , moderate F33.1 [id number] [place] [address] [id number] Jul, [facility] [address] [address] Jul, [facility] [address] [address] Jul, Major depression F32.9 and M orbid obesity E66.[address] [id number] [place] [address] [id number] Jul, Type II diabetes mellitus E11.9 ; Callus of foot L84 ; Benign essential hypertension I10 and Renal insufficiency N28.9 [facility] [address] [address] 09 Jul, 2015 Depression, major, recurrent , moderate F33.1 [place] [address] [address] Jul, Major depression F32.9 [facility] [address] [place] [id number] [address] [place] [address] Jul, [facility] [address] [address] Jun, Major depression F32.9 [facility] [address] [place] [id number] [address] [place] [address] Jun, Major depressive disorder, r ecurrent, moderate F33.1 [place] [address] [place] [address] 08 Jun, 2015 [facility] [address] [facility] [id number] [address] [place] [address] 08 Jun, 2015 Major depressive disorder, r ecurrent, moderate F33.1 and Major depression F32.[address] [place] [id number] [place] [address] [id number] Jun, Type II diabetes mellitus E11.9 [place] [address] [facility] [id number] [address] [place] [address] Jun, Depression, major, recurrent , moderate F33.1 [place] [address] [facility] [id number] [address] [place] [address] May, Major depressive disorder, r ecurrent, moderate F33.1 [place] [address] [place] [id number] [address] [place] [address] May, [place] [id number] [place] [address] [id number] May, Edema R60.9 [place] [address] [place] [id number] [address] [place] [address] May, Insomnia G47.00 and Major de pression F32.[address] [place] [id number] [place] [address] [id number] 15 May, 2015 Morbid obesity E66.01 ; Edema R60.9 ; Sh ortness of breath R06.02 ; Benign essential hypertension I10 and Renal insufficiency N28.[address] [place] [id number] [place] [address] [id number] 14 May, 2015 Hyperlipemia 272.4 and Renal insufficien cy N28.9 [place] [address] [place] [id number] [address] [place] [address] Apr, Major depression F32.9 [place] [address] [place] [id number] [address] [place] [address] Apr, [place] [address] [facility] [id number] [address] [place] [address] Apr, Major depressive disorder, r ecurrent, moderate F33.1 [facility] [id number] [place] [address] [id number] Apr, Type II diabetes mellitus E11.9 ; Benign essential hypertension I10 ; Edema R60.9 and Renal insufficiency N28.9 [place] [address] [facility] [id number] [address] [place] [address] Mar, Major depressive disorder, r ecurrent, moderate F33.1 [place] [address] [facility] [id number] [address] [place] [address] Mar, [place] [address] [facility] [id number] [address] [place] [address] Mar, Major depression F32.9 [facility] [id number] [place] [address] [id number] Mar, Morbid obesity E66.01 ; Benign essential hypertension I10 and Type II diabetes mellitus E11.9 [place] [address] [facility] [id number] [address] [place] [address] Feb, Major depressive disorder, r ecurrent, moderate F33.1 [place] [address] [facility] [id number] [address] [place] [address] Feb, Major depressive disorder, r ecurrent episode, in partial or unspecified remission 296.35 ; Anxiety state, unspecified 300.00 and Morbid obesity 278.01 [place] [address] [facility] [id number] [address] [place] [address] Feb, [facility] [id number] [place] [address] [id number] Feb, Vomiting 787.03 and Viral syndrome 079.9 9 [place] [address] [facility] [id number] [address] [place] [address] 15 Feb, 2015 Major depression, recurrent 296.30 ; Generalized anxiety disorder 300.02 and No condition on [place] II V71.[address] [id number] [place] [id number] Feb, Skin tag 701.9 [facility] [address] [place] [id number] [address] [place] [address] Feb, [facility] [address] [place] [id number] [address] [place] [address] Jan, Depression, major, recurrent , moderate 296.[address] [id number] [place] [id number] Jan, Nausea and vomiting 787.01 ; Rib pain on right side 786.50 and Fall on or from sidewalk curb E880.1 [facility] [address] [place] [id number] [address] [place] [address] Jan, [facility] [address] [address] Jan, Major depressive disorder, r ecurrent episode, in partial or unspecified remission 296.35 and Anxiety state, unspecified 300.[id number] [place] [address] [id number] Jan, [facility] [address] [facility] [id number] [address] [place] [address] Jan, Depression, major, recurrent , moderate 296.32 [facility] [address] [place] [id number] [address] [place] [address] Jan, Major depression, recurrent 296.30 ; No condition on [place] II V71.09 and No condition on axis III V71.09 [id number] [place] [address] [id number] Jan, Drug-induced nausea and vomiting 787.01 [facility] [address] [place] [id number] [address] [place] [address] Jan, Depression, major, recurrent , moderate 296.32 [facility] [address] [place] [id number] [address] [place] [address] Dec, Depression, major, recurrent , moderate 296.[address] [id number] [place] [address] [id number] Dec, Morbid obesity 278.01 ; Metabolic syndro me 277.7 ; Hyperlipemia 272.4 ; Benign essential hypertension 401.1 ; Dietary counseling V65.3 ; Exercise counseling V65.41 and Inflamed skin tag 701.[address] [address] Dec, Depression, major, recurrent , moderate 296.[address] [address] Dec, [address] [address] Dec, Major depression, recurrent 296.30 ; Anxiety, generalized 300.02 and No condition on [place] II V71.09 [place] [id number] [place] [address] Dec, Depression, major, recurrent , moderate 296.32 [place] [id number] [address] [place] [address] Dec, Major depressive disorder, r ecurrent episode, moderate 296.32 [place] [id number] [address] [place] [address] Dec, Depression, major, recurrent , moderate 296.32 [place] [id number] [address] [place] [address] Dec, Depression, major, recurrent , moderate 296.32 [place] [id number] [address] [place] [address] Dec, Depression, major, recurrent , moderate 296.32 [place] [id number] [address] [place] [address] Dec, Depression, major, recurrent , moderate 296.32 [place] [address] [place] [address] 17 Nov, 2014 Depression, major, recurrent , moderate 296.32 [facility] [address] [place] [id number] [address] [place] [address] 16 Nov, 2014 Major depression 296.20 ; So cial phobia 300.23 and No condition on [place] II V71.09 [facility] [address] [place] [id number] [address] [place] [address] 16 Nov, 2014 Depression, major, recurrent , moderate 296.32 [facility] [address] [place] [id number] [address] [place] [address] 09 Nov, 2014 Major depressive disorder, r ecurrent episode, moderate 296.32 and Generalized anxiety disorder 300.02 [facility] [address] [place] [id number] [place] [address] 09 Nov, 2014 Depression, major, recurrent , moderate 296.32 [facility] [address] [place] [id number] [place] [address] Nov, Depression, major, recurrent , moderate 296.32 [facility] [address] [place] [id number] [address] [place] [address] October, Generalized anxiety disorder 300.02 ; No condition on [place] II V71.09 and Major depressive disorder, recurrent 296.30 [facility] [address] [place] [id number] [address] [place] [address] Sep, [facility] [address] [place] [id number] [address] [place] [address] Sep, [facility] [address] [place] [id number] [address] [place] [address] Aug, [facility] [address] [place] [id number] [address] [place] [address] Aug, [facility] [address] [place] [id number] [address] [place] [address] Aug, [facility] [address] [place] [id number] [address] [place] [address] 23 Aug, 2014 [facility] [address] [id number] [address] [place] [address], [place] [address] 20 Aug, 2014 [facility] [place] [facility] [address] [id number] [address] [place] [address], [place] [address] 20 Aug, 2014 [facility] [address] [id number] [address] [place] [address], [place] [address] 20 Aug, 2014 [facility] [place] [facility] [address] [id number] [address] [place] [address], [place] [address] 20 Aug, 2014 [facility] [address] [id number] [address] [place] [address], [place] [address] Aug, [facility] [address] [id number] [address] [place] [address], [place] [address] 13 Aug, 2014 [facility] [address] [id number] [address] [place] [address], [place] [address] Aug, [facility] [address] [id number] [address] [place] [address], [place] [address] Aug, [facility] [address] [id number] [address] [place] [address], [place] [address] Aug, [facility] [address] [id number] [address] [place] [address], [place] [address] Aug, [facility] [address] [id number] [address] [place] [address], [place] [address] Aug, [facility] [place] [facility] [address] [id number] [address] [place] [address], [place] [address] Aug, [facility] [place] [facility] [address] [id number] [address] [place] [address], [place] [address] Aug, [facility] [place] [facility] [address] [id number] [address] [place] [address], [place] [address] Aug, [facility] [place] [facility] [address] [id number] [address] [place] [address], [place] [address] 24 Jul, 2014 [facility] [place] [facility] [address] [id number] [address] [place] [address], [place] [address] Jul, [facility] [address] [id number] [address] [place] [address], [place] [address] Jul, [facility] [address] [id number] [address] [place] [address], [place] [address] Jul, 2014 [facility] [address] [id number] [address] [place] [address], [place] [address] Jul, [facility] [address] [id number] [address] [place] [address], [place] [address] Jul, [facility] [address] [id number] [address] [place] [address], [place] [address] Jun, [facility] [address] [id number] [address] [place] [address], [place] [address] Jun, [facility] [address] [id number] [address] [place] [address], [place] [address] Jun, [facility] [address] [id number] [address] [place] [address], [place] [address] Jun, [facility] [address] [id number] [address] [place] [address], [place] [address] Jun, [facility] [address] [id number] [address] [place] [address], [place] [address] Jun, [facility] [address] [id number] [address] [place] [address], [place] [address] Jun, [facility] [address] [id number] [address] [place] [address], [place] [address] Jun, [facility] [address] [id number] [address] [place] [address], [place] [address] Jun, [facility] [address] [id number] [address] [place] [address], [place] [address] Jun, [facility] [address] [id number] [address] [place] [address], [place] [address] Jun, [facility] [address] [id number] [address] [place] [address], [place] [address] Jun, [facility] [address] [id number] [place], [place] [id number] Jun, [facility] [address] [id number] [address] [place] [address], [place] [address] Jun, [facility] [address] [id number] [address] [place] [address], [place] [address] Jun, [facility] [address] [id number] [address] [place] [address], [place] [address] Jun, [facility] [address] [id number] [address] [place] [address], [place] [address] May, [facility] [address] [id number] [address] [place] [address] May, [facility] [address] [id number] [address] [place] [address] May, [facility] [address] [id number] [address] [place] [address], [place] [address] May, [facility] [address] [id number] [address] [place] [address] Apr, [facility] [address] [id number] [address] [place] [address] Apr, [facility] [address] [id number] [address] [place] [address] Apr, [facility] [address] [id number] [address] [place] [address], [place] [address] Apr, [facility] [address] [id number] [address] [place] [address] Apr, [facility] [address] [id number] [address] [place] [address] Apr, [facility] [address] [id number] [address] [place] [address], [place] [address] Apr, [facility] [place] [facility] [address] [id number] [address] [place] [address], [place] [address] Apr, [facility] [place] [facility] [address] [id number] [address] [place] [address], [place] [address] Apr, [facility] [place] [facility] [address] [id number] [address] [place] [address], [place] [address] Apr, [facility] [address] [id number] [address] [place] [address], [place] [address] Apr, [facility] [address] [id number] [address] [place] [address], [place] [address] Apr, [facility] [address] [id number] [address] [place] [address], [place] [address] Apr, [facility] [address] [id number] [address] [place] [address], [place] [address] Apr, [facility] [address] [id number] [address] [place] [address], [place] [address] Apr, [facility] [address] [id number] [address] [place] [address], [place] [address] Apr, [facility] [address] [id number] [address] [place] [address], [place] [address] Apr, [facility] [address] [id number] [address] [place] [address], [place] [address] Apr, [facility] [address] [id number] [address] [place] [address], [place] [address] Apr, [facility] [address] [id number] [address] [place] [address], [place] [address] Apr, [facility] [address] [id number] [address] [place] [address], [place] [address] Mar, [facility] [address] [id number] [address] [place] [address], [place] [address] Mar, [facility] [address] [id number] [address] [place] [address], [place] [address] Mar, [facility] [address] [id number] [address] [place] [address], [place] [address] Mar, [facility] [address] [id number] [address] [place] [address], [place] [address] Mar, [facility] [address] [id number] [address] [place] [address], [place] [address] Mar, [facility] [address] [id number] [address] [place] [address], [place] [address] Mar, [facility] [address] [id number] [address] [place] [address], [place] [address] Mar, [facility] [address] [id number] [address] [place] [address], [place] [address] Mar, [facility] [address] [id number] [address] [place] [address], [place] [address] Mar, [facility] [address] [id number] [address] [place] [address], [place] [address] Feb, [facility] [address] [id number] [address] [place] [address], [place] [address] Feb, [facility] [address] [id number] [address] [place] [address], [place] [address] Feb, [facility] [address] [id number] [address] [place] [address], [place] [address] Feb, [facility] [address] [id number] [address] [place] [address], [place] [address] Jan, [facility] [address] [id number] [address] [place] [address], [place] [address] Jan, [facility] [address] [id number] [address] [place] [address], [place] [address] Jan, [facility] [address] [id number] [address] [place] [address], [place] [address] Jan, [facility] [address] [id number] [address] [place] [address] Jan, [facility] [address] [id number] [address] [place] [address], [place] [address] Jan, [facility] [address] [id number] [address] [place] [address], [place] [address] Dec, [facility] [address] [id number] [address] [place] [address], [place] [address] Dec, [facility] [address] [id number] [address] [place] [address], [place] [address] Nov, [facility] [address] [id number] [address] [place] [address], [place] [address] Nov, [facility] [address] [id number] [address] [place] [address], [place] [address] Nov, [facility] [address] [id number] [address] [place] [address], [place] [address] Nov, [facility] [address] [id number] [address] [place] [address], [place] [address] Nov, [facility] [address] [id number] [address] [place] [address], [place] [address] Nov, [facility] [address] [id number] [address] [place] [address], [place] [address] Sep, [facility] [address] [id number] [address] [place] [address], [place] [address] Sep, [facility] [address] [id number] [address] [place] [address], [place] [address] Sep, [facility] [address] [id number] [address] [place] [address], [place] [address] Sep, [facility] [address] [id number] [address] [place] [address], [place] [address] Aug, [facility] [address] [id number] [address] [place] [address], [place] [address] Aug, [facility] [address] [id number] [address] [place] [address], [place] [address] Jul, [facility] [address] [id number] [address] [place] [address], [place] [address] Jul, [facility] [address] [id number] [address] [place] [address], [place] [address] Jun, [facility] [address] [id number] [address] [place] [address], [place] [address] Jun, [facility] [address] [id number] [address] [place] [address], [place] [address] Jun, [facility] [address] [id number] [address] [place] [address], [place] [address] Jun, [facility] [address] [id number] [address] [place] [address], [place] [address] May, [facility] [address] [id number] [address] [place] [address], [place] [address] May, [facility] [address] [id number] [address] [place] [address], [place] [address] May, [facility] [address] [id number] [address] [place] [address], [place] [address] May, [facility] [address] [id number] [address] [place] [address], [place] [address] May, [facility] [address] [id number] [address] [place] [address], [place] [address] May, [facility] [address] [id number] [address] [place] [address], [place] [address] Apr, [facility] [address] [id number] [address] [place] [address], [place] [address] Apr, [facility] [address] [id number] [address] [place] [address], [place] [address] Apr, [facility] [address] [id number] [address] [place] [address], [place] [address] Apr, [facility] [address] [id number] [address] [place] [address], [place] [address] Mar, [facility] [address] [id number] [address] [place] [address], [place] [address] Mar, [facility] [address] [id number] [address] [place] [address], [place] [address] Mar, [facility] [address] [id number] [address] [place] [address], [place] [address] Mar, [facility] [address] [id number] [address] [place] [address], [place] [address] Feb, [facility] [address] [id number] [place] [id number] Jan, [facility] [address] [id number] [address] [place] [address], [place] [address] Jan, [facility] [address] [id number] [address] [place] [address], [place] [address] Dec, [facility] [address] [id number] [address] [place] [address], [place] [address] Dec, [facility] [address] [id number] [address] [place] [address], [place] [address] Dec, [facility] [address] [id number] [place] [id number] Dec, [facility] [address] [id number] [address] [place] [address], [place] [address] Nov, [facility] [address] [id number] [address] [place] [address], [place] [address] 14 Nov, 2012 [facility] [address] [id number] [address] [place] [address], [place] [address] Nov, [facility] [address] [id number] [address] [place] [address], [place] [address] Nov, [facility] [address] [facility] [id number] [address] [place] [address] Nov, [facility] [address] [facility] [id number] [address] [place] [address] October, [facility] [address] [facility] [id number] [address] [place] [address] October, [facility] [address] [facility] [id number] [address] [place] [address] Aug, [facility] [address] [facility] [id number] [address] [place] [address] 13 Nov, 2011 IMMUNIZATIONS No Known Immunizations [...] 03/2016 Hospitalization History gastric sleeve Hospitalization History [facility] Trouble with left shoulder blade 08/2017
--- OUTSIDE RECORDS SUMMARY | 2019-11-29 09:07 | XMS REPORT ---
Author Author Curt Daniel Doctor Organization [facility] Address Unknown Phone Unavailable Care Team Providers Care Anatomic Pathologist Name Role Phone Migration, Doctor Unavailable Unavailable PROBLEMS Type Condition ICD9-CM Code [id number] Code Onset Dates Condition S tatus SNOMED Code Problem Insomnia G47.00 Active 427496673 Problem Hyperlipemia E78.5 Active 9491510 4 Problem Morbid obesity E66.01 Active 20446 6002 Problem Benign essential hypertension I10 Active 2197948 Problem Renal insufficiency N28.9 Active 454912759 Problem Edema R60.9 Active 506439077 Problem Severe episode of recurrent major depressive disorder, without psychotic features F33.2 Active 18203533 Problem Metabolic syndrome E88.81 Active 2 72306962 Problem DANIELA (generalized anxiety disorder) F41.1 Active 40985179 Problem BMI 45.0-49.9, adult Z68.42 Active 072155881 Problem Sciatica, right side M54.31 Active 099456803757030 Problem Hammer toe of second toe of right foot M20.41 Active 746931674 Problem Mixed obsessional thoughts and acts F42.2 Active 86587239 Problem Hammer toe of right foot M20.41 Activ e 343805218 Problem Vitamin D deficiency E55.9 Active 52494827 Problem Chronic fatigue R53.82 Active 8422 9001 Problem Other chronic pain G89.29 Active 8 1966548 Problem Borderline personality disorder F60.3 Active 62924508 Problem Callous ulcer, limited to breakdown of skin L98.49 1 Active ALLERGIES No Information ENCOUNTERS Encounter Location Date Diagnosis [facility] [address] [facility] [id number] [place] [id number] Jun, [facility] [address] [facility] [id number] [address] [place] [id number] 14 Mar, 2019 [facility] [address] [facility] [id number] [place] [address] 11 Feb, 2019 [facility] [address] [place] [id number] [address] [place] [address] Feb, [facility] [address] [place] [id number] [address] [place] [address] Jan, [facility] [address] [facility] [id number] [address] [place] [phone] Jan, [facility] [address] [place] [id number] [address] [place] [address] Jan, [facility] [address] [id number][place] [id number] Jan, Callus of heel L84 ; Fissure in skin R23 .4 and Hammer toe of second toe of right foot M20.41 [facility] [address] [id number], [place] [id number] Jan, [place] [address] [place] [id number] [address] [place] [phone] Jan, [place] [address] [place] [id number] [address] [place] [address] Jan, [place] [address] [place] [id number] [address] [place] [address] Jan, Severe episode of recurrent major depressive disorder, without psychotic features F33.2 ; DANIELA (generalized anxiety disorder) F41.1 ; Mixed obsessional thoughts and acts F42.2 and Borderline personality disorder F60.3 [place] [address] [place] [id number] [address] [place] [address] Jan, [facility] [address] [id number][place] [id number] Jan, Benign essential hypertension I10 [facility] [address] [id number], [place] [id number] Dec, Callous ulcer, limited to breakdown of s kin L98.491 and Morbid obesity E66.01 [facility] [address] [facility] [id number] [address] [place] [address] Dec, [facility] [address] [facility] [id number] [address] [place] [address] Dec, [facility] [address] [facility] [id number] [address] [place] [address] Dec, [facility] [address] [facility] [id number] [address] [place] [address] Dec, [facility] [address] [facility] [id number] [address] [place] [address] Dec, Severe episode of recurrent major depressive disorder, without psychotic features F33.2 [facility] [address] [facility] [id number] [address] [place] [address] Dec, DANIELA (generalized anxiety dis order) F41.1 ; Severe episode of recurrent major depressive disorder, without psychotic features F33.2 ; Mixed obsessional thoughts and acts F42.2 and 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 [place] [id number] [place] [id number] Dec, Morbid obesity E66.01 [facility] [address] [facility] [id number] [address] [place] [address] Dec, [facility] [address] [facility] [id number] [address] [place] [address] Dec, [address] [address] Nov, [place] [address] [facility] [id number] [place] [address] [id number] Nov, [facility] [address] [facility] [id number] [address] [place] [address] Nov, [facility] [address] [facility] [id number] [address] [place] [address] Nov, [facility] [address] [facility] [id number] [address] [place] [address] Nov, DANIELA (generalized anxiety dis order) F41.1 ; Severe episode of recurrent major depressive disorder, without psychotic features F33.2 ; Mixed obsessional thoughts and acts F42.2 and 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 [place] [address] [facility] [address] [id number], [place] [id number] Nov, Morbid obesity E66.01 [facility] [address] [facility] [id number] [address] [place] [address] Nov, [facility] [address] [facility] [id number] [address] [place] [address] Nov, DANIELA (generalized anxiety dis order) F41.1 ; Mixed obsessional thoughts and acts F42.2 ; Severe episode of recurrent major depressive disorder, without psychotic features F33.2 and 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 [id number], [place] [id number] October, Morbid obesity E66.[address] [id number], [place] [id number] October, Benign essential hypertension I10 and Mo rbid obesity E66.[address] [id number], [place] [id number] October, [place] [address] [facility] [id number] [address] [place] [address] October, Severe episode of recurrent major depressive disorder, without psychotic features F33.[address] [id number], [place] [id number] October, Morbid obesity E66.[address] [id number], [place] [id number] October, [facility] [address] [facility] [id number] [address] [place] [address] October, Severe episode of recurrent major depressive disorder, without psychotic features F33.2 ; DANIELA (generalized anxiety disorder) F41.1 ; Mixed obsessional thoughts and acts F42.2 and 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 [place] [address] [id number], [place] [id number] October, Morbid obesity E66.01 [facility] [address] [id number] [address] [place] [id number] Sep, Dental examination Z01.20 [facility] [address] [id number], [place] [id number] Sep, [facility] [address] [facility] [id number] [address] [place] [address] Sep, Sore in mouth K13.79 and Mor bid obesity E66.01 [facility] [address] [facility] [id number] [address] [place] [address] Sep, Dental examination Z01.20 [facility] [address] [facility] [id number] [address] [place] [address] Sep, Anxiety disorder, unspecifie d F41.9 [facility] [id number], [place] [id number] Sep, Mouth ulcer K12.1 [facility] [id number], [place] [id number] Sep, Morbid obesity E66.01 [facility] [address] [id number], [place] [id number] Sep, Allergic rhinitis, unspecified seasonali ty, unspecified trigger J30.9 and Shortness of breath R06.02 [facility] [id number], [place] [id number] Sep, 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 [facility] [address] [id number], [place] [id number] Aug, Mouth abscess K12.2 ; Mouth ulcer K12.1 ; Bloating R14.0 and Morbid obesity E66.01 [facility] [facility] [id number], [place] [id number] Aug, [facility] [id number], [place] [id number] Aug, [facility] [id number], [place] [id number] Jul, Major depressive disorder, recurrent, mo derate F33.1 ; Abscess of arm, left L02.414 ; BMI 45.0-49.9, adult Z68.42 and Morbid obesity E66.01 [facility] [id number], [place] [id number] Jul, [facility] [id number], [place] [id number] Jul, [facility] [id number], [place] [id number] Jun, Pain in right knee M25.561 and Other chr onic pain G89.29 [facility] [id number], [place] [id number] Jun, Benign essential hypertension I10 ; BMI 45.0-49.9, adult Z68.42 ; Morbid obesity E66.01 ; Vitamin D deficiency E55.9 ; Insomnia G47.00 ; 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 ; Edema R60.9 ; Recurrent major depressive disorder, in partial remission F33.41 ; Chronic fatigue R53.82 ; Acute pain of right knee M25.561 ; Metabolic syndrome E88.81 and Irritable mood R45.4 [place] [address] [facility] [id number] [address] [place] [address] Jun, [facility] [id number], [place] [id number] Jun, Irritable mood R45.4 [facility] [address] [facility] [id number] [address] [place] [address] May, [place] [address] [place] [id number] [address] [place] [address] May, [place] [address] [facility] [id number] [address] [place] [address] May, Recurrent major depressive d isorder, in partial remission F33.41 ; Mixed obsessional thoughts and acts F42.2 ; 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 and BMI 45.0-49.9, adult Z68.42 [facility] [address] [place] [id number] [address] [place] [address] 27 Apr, 2018 [facility] [address] [facility] [id number] [address] [place] [address] 16 Apr, 2018 [facility] [address] [place] [id number] [address] [place] [address] Apr, [facility] [address] [place] [id number] [address] [place] [address] Apr, [facility] [address] [place] [id number] [address] [place] [address] Mar, Mixed obsessional thoughts a nd acts F42.2 ; Recurrent major depressive disorder, in partial remission F33.41 ; DANIELA (generalized anxiety disorder) F41.1 and BMI 45.0-49.9, adult Z68.[address] [place] [address] [id number], [place] [id number] Mar, [facility] [id number] [place] [address] [id number] Mar, BMI 45.0-49.9, adult Z68.42 ; Instabilit y of right knee joint M25.361 and Rash R21 [place] [address] [place] [id number] [address] [place] [address] Jan, Recurrent major depressive d isorder, in partial remission F33.41 ; Mixed obsessional thoughts and acts F42.2 and BMI 45.0-49.9, adult Z68.42 [facility] [address] [id number], [place] [id number] Jan, [facility] [address] [id number], [place] [id number] Jan, Benign essential hypertension I10 ; BMI 45.0-49.9, adult Z68.42 ; Metabolic syndrome E88.81 and Allergic rhinitis, unspecified seasonality, unspecified trigger J30.9 [facility] [address] [facility] [id number] [address] [place] [address] Dec, DANIELA (generalized anxiety dis order) F41.1 and Depressive disorder, not elsewhere classified F32.9 [facility] [id number], [place] [id number] Dec, Recurrent major depressive disorder, in partial remission F33.[address] [facility] [address] [address] [id number] [place] [id number] Dec, [facility] [address] [id number], [place] [id number] Nov, [facility] [address] [id number], [place] [id number] Nov, Recurrent major depressive disorder, in partial remission F33.41 [facility] [address] [facility] [id number] [address] [place] [address] Nov, Recurrent major depressive d isorder, in partial remission F33.41 ; Mixed obsessional thoughts and acts F42.2 ; DANIELA (generalized anxiety disorder) F41.1 and BMI 45.0-49.9, adult Z68.42 [facility] [address] [id number], [place] [id number] Nov, [facility] [address] [id number], [place] [id number] Nov, Other conjunctivitis of both eyes H10.89 and Sciatica, right side M54.[address] [facility] [address] [id number] [place], [place] [id number] Nov, [facility] [address] [id number], [place] [id number] Nov, [facility] [address] [id number], [place] [id number] October, [facility] [address] [id number], [place] [id number] October, [facility] [address] [place] [id number] [address] [place] [address] October, BMI 45.0-49.9, adult Z68.42 ; Mixed obsessional thoughts and acts F42.2 ; Recurrent major depressive disorder, in partial remission F33.41 and DANIELA (generalized anxiety disorder) F41.1 [facility] [address] [id number], [place] [id number] October, Benign essential hypertension I10 ; Morb id obesity E66.01 and BMI 45.0-49.9, adult Z68.[address] [id number] [place] [address] [id number] Sep, [facility] [id number] [place] [address] [id number] Sep, [facility] [id number] [place] [address] [id number] Sep, [facility] [id number] [place] [address] [id number] Sep, Hospital discharge follow-up Z09 ; Aller gic rhinitis, unspecified seasonality, unspecified trigger J30.9 and Shortness of breath R06.02 [facility] [id number], [place] [id number] Sep, Recurrent major depressive disorder, in partial remission F33.41 [facility] [id number], [place] [id number] Aug, Irritable mood R45.4 [facility] [address] [facility] [id number] [address] [place] [address] Aug, [facility] [id number] [place] [address] [id number] Jul, Benign essential hypertension I10 ; Robert a R60.9 and Impacted cerumen of left ear H61.22 [facility] [address] [facility] [id number] [address] [place] [address] Jul, Major depression F32.9 ; Rec urrent major depressive disorder, in partial remission F33.41 and Anxiety F41.9 [place] [address] [facility] [id number] [address] [place] [address] Jun, Major depression F32.9 ; Rec urrent major depressive disorder, in partial remission F33.41 and Anxiety F41.9 [facility] [address] [id number], [place] [id number] Jun, Major depression F32.9 ; Morbid obesity E66.01 ; Irritable mood R45.4 ; Hand weakness R29.898 and Vitamin D deficiency E55.9 [facility] [id number] [place] [address] [id number] Jun, [facility] [id number] [place] [address] [id number] May, Major depression F32.9 [place] [address] [facility] [id number] [address] [place] [address] May, Major depression F32.9 [facility] [id number] [place] [address] [id number] May, BMI 50.0-59.9, adult Z68.43 ; Major depr ession F32.9 ; Anxiety F41.9 ; Hypertrophic toenail L60.2 and Pain of left great toe M79.675 [facility] [id number] [place] [address] [id number] May, Recurrent major depressive disorder, in partial remission F33.41 [place] [address] [facility] [id number] [address] [place] [address] Apr, [facility] [id number] [place] [address] [id number] Apr, [place] [address] [facility] [id number] [address] [place] [address] Apr, Major depression F32.9 [facility] [address] [id number], [place] [id number] Apr, Severe episode of recurrent major depres sive disorder, without psychotic features F33.2 ; Anxiety F41.9 and Insomnia G47.00 [facility] [address] [id number], [place] [id number] Apr, [facility] [address] [place] [address] Apr, [facility] [address] [id number], [place] [id number] Apr, [facility] [address] [id number], [place] [id number] Mar, [facility] [address] [id number], [place] [id number] Mar, Allergic conjunctivitis of both eyes H10 .13 [place] [address] [place] [id number] [address] [place] [address] Mar, Major depression F32.9 [facility] [address] [id number], [place] [id number] Mar, Metabolic syndrome E88.81 ; History of g astric bypass Z98.890 ; Benign essential hypertension I10 ; Allergic conjunctivitis of both eyes H10.13 and Morbid obesity E66.01 [place] [address] [place] [id number] [address] [place] [address] Mar, Major depression F32.9 [facility] [address] [id number], [place] [id number] Feb, [place] [address] [place] [id number] [address] [place] [address] Feb, Major depression F32.9 [facility] [address] [id number], [place] [id number] Feb, Subacute maxillary sinusitis J01.00 and Bronchitis J40 [place] [address] [place] [id number] [address] [place] [address] Feb, Major depressive disorder, r ecurrent, moderate F33.1 [facility] [address] [facility] [address] [id number], [place] [id number] Jan, [facility] [address] [facility] [address] [id number], [place] [id number] Jan, Acute non-recurrent maxillary sinusitis J01.00 and Skin tag L91.8 [facility] [address] [facility] [address] [id number], [place] [id number] Jan, Cough R05 and Sinus congestion R09.81 [facility] [address] [place] [address] [place] [id number], [place] [id number] Jan, [facility] [address] [place] [address] [place] [id number], [place] [id number] Jan, Benign essential hypertension I10 ; Hist ory of gastric bypass Z98.890 and Nausea and vomiting in adult R11.2 [place] [address] [place] [id number] [address] [place] [address] Jan, Major depressive disorder, r ecurrent, moderate F33.1 [place] [address] [place] [id number] [address] [place] [address] Dec, Insomnia G47.00 ; Recurrent major depressive disorder, in partial remission F33.41 and Morbid obesity E66.01 [facility] [address] [facility] [address] [id number], [place] [id number] Dec, [facility] [id number], [place] [id number] Dec, Chronic bacterial conjunctivitis of left eye H10.402 [facility] [address] [id number], [place] [id number] Nov, [facility] [address] [id number], [place] [id number] Nov, Dental examination Z01.20 [facility] [address] [id number], [place] [id number] Nov, Benign essential hypertension I10 ; Hist ory of gastric bypass Z98.890 and Nausea and vomiting in adult R11.2 [place] [id number] [place] [address] Nov, Major depressive disorder, r ecurrent, moderate F33.1 ; Generalized anxiety disorder F41.1 and Insomnia due to other mental disorder F51.05 [place] [id number] [place] [address] Nov, Recurrent major depressive d isorder, in partial remission F33.41 ; Insomnia G47.00 and Morbid obesity E66.01 [facility] [address] [id number] [id number] October, Abscess of left arm L02.414 [place] [id number] [place] [address] October, Morbid obesity E66.01 ; Lida r depression F32.9 and Recurrent major depressive disorder, in partial remission F33.[address] [place] [address] [id number], [place] [id number] Sep, Benign essential hypertension I10 ; Morb id obesity E66.01 ; S/P gastric bypass Z98.84 ; Abscess L02.91 and Chronic bacterial conjunctivitis of left eye H10.[address] [id number] [id number] Sep, Dental examination Z01.[address] [id number] [address] [place] [id number] Sep, Morbid obesity E66.01 ; Lida r depression F32.9 and Recurrent major depressive disorder, in partial remission F33.41 [place] [id number] [address] [place] [id number] Jul, [place] [id number] [address] [place] [id number] Jul, Major depressive disorder, r ecurrent, moderate F33.1 [place] [id number] [facility] [id number] [address] [place] [id number] Jul, Major depressive disorder, r ecurrent, moderate F33.1 and Generalized anxiety disorder F41.1 [facility] [address] [id number] [id number] Jul, Cough R05 [place] [address] [address] [facility] [id number] [address] [place] [id number] Jul, Morbid obesity E66.01 ; Ilda r depression F32.9 and Recurrent major depressive disorder, in partial remission F33.41 [facility] [id number] [place] [id number] Jul, [place] [id number] [place] [id number] Jul, [place] [id number] [place] [id number] Jul, Gastroenteritis K52.9 and Cough R05 [facility] [id number] [place] [id number] Jun, Acute bacterial conjunctivitis of left e ye H10.32 [place] [address] [address] [facility] [id number] [address] [place] [id number] Jun, [place] [address] [address] [place] [id number] [address] [place] [id number] Jun, Recurrent major depressive d isorder, in partial remission F33.41 [place] [address] [address] [facility] [facility] [id number] [address] [place] [address] May, Major depression F32.9 and M orbid obesity E66.01 [place] [address] [address] [facility] [id number] [address] [place] [address] May, [facility] [id number] [place] [address] [id number] May, Thrush B37.0 [place] [address] [facility] [id number] [address] [place] [address] 15 Apr, 2016 Major depressive disorder, r ecurrent, moderate F33.1 [facility] [address] [facility] [id number] [address] [place] [address] Apr, Insomnia G47.00 ; Major depr ession F32.9 and Recurrent major depressive disorder, in partial remission F33.41 [place] [address] [address] [facility] [id number] [address] [place] [address] Apr, [place] [address] [address] [facility] [id number] [address] [place] [address] Apr, Major depression F32.9 and R ecurrent major depressive disorder, in partial remission F33.41 [facility] [address] [id number][place] [id number] Mar, Benign essential hypertension I10 ; Morb id obesity E66.01 ; Impacted cerumen of both ears H61.23 ; Laceration of finger of right hand, initial encounter S61.219A and Encounter for immunization Z23 [place] [address] [address] [facility] [id number] [address] [place] [address] Mar, [place] 214341 N [facility] [id number] [address] [place] [address] Mar, [place] [address] [address] [facility] [id number] [address] [place] [address] Mar, [facility] [address] [id number][place] [id number] Feb, Nausea R11.0 ; Blood in the stool K92.1 and Benign essential hypertension I10 [facility] [address] [facility] [id number] [address] [place] [address] Feb, Major depression F32.9 and R ecurrent major depressive disorder, in partial remission F33.41 [facility] [address] [id number][place] [id number] Feb, [facility] [address] [id number][place] [id number] Feb, Recurrent major depressive disorder, in partial remission F33.[address] [facility] [address] [id number], [place] [id number] Jan, [facility] [address] [id number][place] [id number] Jan, Benign essential hypertension I10 ; Robert a R60.9 and Hyperlipidemia, unspecified hyperlipidemia type E78.5 [facility] [address] [id number], [place] [id number] Jan, Recurrent major depressive disorder, in partial remission F33.41 [facility] [address] [id number] [place] [id number] Jan, [facility] [address] [id number][place] [id number] Jan, [facility] [address] [id number], [place] [id number] Jan, [facility] [address] [facility] [id number] [address] [place] [address] Jan, [facility] [address] [facility] [id number] [address] [place] [address] Dec, [facility] [address] [facility] [id number] [address] [place] [address] Nov, [facility] [address] [facility] [id number] [address] [place] [address] Nov, Major depression F32.9 [facility] [address] [facility] [id number] [address] [place] [address] Nov, [facility] [address] [facility] [id number] [address] [place] [address] Nov, [facility] [address] [facility] [id number] [address] [place] [address] Nov, Major depressive disorder, r ecurrent episode, mild F33.0 and Anxiety F41.9 [facility] [address] [id number], [place] [id number] Nov, [facility] [address] [id number] [place] [address] [id number] October, Left elbow pain M25.522 and Other season al allergic rhinitis J30.2 [facility] [address] [id number], [place] [id number] October, [facility] [address] [facility] [id number] [address] [place] [address] October, Major depressive disorder, r ecurrent, moderate F33.1 [place] [address] [address] [facility] [id number] [address] [place] [address] October, Major depression F32.9 [place] [address] [address] [facility] [id number] [address] [place] [address] Sep, Rosholt or callus L84 and Onych omycosis B35.1 [facility] [address] [facility] [id number] [address] [place] [address] Sep, Major depressive disorder, r ecurrent, moderate F33.1 [facility] [address] [facility] [id number] [address] [place] [address] Sep, Major depression F32.9 [place] [address] [address] [place] [id number] [address] [place] [address] Sep, Moderate episode of recurren t major depressive disorder F33.[address] [id number], [place] [id number] Sep, Muscle strain T14.8 [facility] [address] [facility] [id number] [address] [place] [address] Aug, Major depression F32.9 [place] [facility] [id number] [address] [place] [address] Aug, Major depression F32.9 [facility] [address] [facility] [id number] [address] [place] [address] 24 Jul, 2015 Morbid obesity E66.01 and Ma cora depression F32.9 [facility] [address] [facility] [id number] [address] [place] [address] Jul, Depression, major, recurrent , moderate F33.[id number] [place] [address] [id number] Jul, [facility] [address] [facility] [id number] [address] [place] [address] Jul, [place] [address] [address] 16 Jul, 2015 Major depression F32.9 and M orbid obesity E66.01 [id number] [place] [address] [id number] Jul, Type II diabetes mellitus E11.9 ; Callus of foot L84 ; Benign essential hypertension I10 and Renal insufficiency N28.9 [facility] [address] [facility] [id number] [address] [place] [address] 09 Jul, 2015 Depression, major, recurrent , moderate F33.1 [place] [address] [facility] [id number] [address] [place] [address] 05 Jul, 2015 Major depression F32.9 [facility] [address] [place] [id number] [address] [place] [address] Jul, [facility] [address] [facility] [id number] [address] [place] [address] Jun, Major depression F32.9 [facility] [address] [place] [id number] [address] [place] [address] Jun, Major depressive disorder, r ecurrent, moderate F33.1 [facility] [address] [place] [id number] [address] [place] [address] Jun, [place] [address] [place] [address] 08 Jun, 2015 Major depressive disorder, r ecurrent, moderate F33.1 and Major depression F32.[id number] [place] [address] [id number] Jun, Type II diabetes mellitus E11.9 [place] [address] [address] [place] [id number] [address] [place] [address] Jun, Depression, major, recurrent , moderate F33.1 [place] [address] [address] [place] [id number] [address] [place] [address] May, Major depressive disorder, r ecurrent, moderate F33.1 [place] [address] [address] [place] [id number] [address] [place] [address] May, [address] [id number] [place] [address] [id number] May, Edema R60.9 [place] [address] [address] [place] [id number] [address] [place] [address] May, Insomnia G47.00 and Major de pression F32.[address] [id number] [place] [address] [id number] 15 May, 2015 Morbid obesity E66.01 ; Edema R60.9 ; Sh ortness of breath R06.02 ; Benign essential hypertension I10 and Renal insufficiency N28.[id number] [place] [address] [id number] May, Hyperlipemia 272.4 and Renal insufficien cy N28.9 [place] [address] [address] [place] [id number] [address] [place] [address] Apr, Major depression F32.9 [place] [address] [address] [place] [id number] [address] [place] [address] Apr, [place] [address] [address] [place] [id number] [address] [place] [address] Apr, Major depressive disorder, r ecurrent, moderate F33.1 [facility] [address] [id number][place] [id number] Apr, Type II diabetes mellitus E11.9 ; Benign essential hypertension I10 ; Edema R60.9 and Renal insufficiency N28.9 [place] [address] [address] [facility] [id number] [address] [place] [address] Mar, Major depressive disorder, r ecurrent, moderate F33.1 [place] [address] [address] [facility] [id number] [address] [place] [address] Mar, [place] [address] [address] [facility] [id number] [address] [place] [address] Mar, Major depression F32.[address] [id number], [place] [id number] Mar, Morbid obesity E66.01 ; Benign essential hypertension I10 and Type II diabetes mellitus E11.9 [place] [address] [address] [place] [id number] [address] [place] [address] Feb, Major depressive disorder, r ecurrent, moderate F33.1 [place] [address] [address] [place] [id number] [address] [place] [address] Feb, Major depressive disorder, r ecurrent episode, in partial or unspecified remission 296.35 ; Anxiety state, unspecified 300.00 and Morbid obesity 278.01 [place] [address] [address] [facility] [id number] [address] [place] [address] Feb, [address] [id number][place] [id number] Feb, Vomiting 787.03 and Viral syndrome 079.[address] [id number] [address] [place] [address] Feb, Major depression, recurrent 296.30 ; Generalized anxiety disorder 300.02 and No condition on [place] II V71.[address] [id number][place] [id number] Feb, Skin tag 701.9 [facility] [address] [facility] [id number] [address] [place] [address] Feb, [facility] [address] [facility] [id number] [address] [place] [address] Jan, Depression, major, recurrent , moderate 296.32 [facility] [address] [facility] [address] [id number] [place] [address] [id number] Jan, Nausea and vomiting 787.01 ; Rib pain on right side 786.50 and Fall on or from sidewalk curb E880.1 [facility] [address] [facility] [id number] [address] [place] [address] Jan, [facility] [address] [facility] [id number] [address] [place] [address] Jan, Major depressive disorder, r ecurrent episode, in partial or unspecified remission 296.35 and Anxiety state, unspecified 300.[address] [place] [address] [facility] [id number] [place] [address] [id number] Jan, [facility] [address] [facility] [id number] [address] [place] [address] Jan, Depression, major, recurrent , moderate 296.32 [facility] [address] [facility] [id number] [address] [place] [address] Jan, Major depression, recurrent 296.30 ; No condition on [place] II V71.09 and No condition on axis III V71.09 [facility] [address] [facility] [id number] [place] [address] [id number] Jan, Drug-induced nausea and vomiting 787.01 [facility] [address] [facility] [id number] [address] [place] [address] Jan, Depression, major, recurrent , moderate 296.32 [facility] [address] [facility] [id number] [address] [place] [address] Dec, Depression, major, recurrent , moderate 296.[address] [facility] [address] [id number], [place] [id number] Dec, Morbid obesity 278.01 ; Metabolic syndro me 277.7 ; Hyperlipemia 272.4 ; Benign essential hypertension 401.1 ; Dietary counseling V65.3 ; Exercise counseling V65.41 and Inflamed skin tag 701.[address] [place] [address] Dec, Depression, major, recurrent , moderate 296.32 [place] [address] [address] Dec, [address] [address] Dec, Major depression, recurrent 296.30 ; Anxiety, generalized 300.02 and No condition on [place] II V71.[address] [address] Dec, Depression, major, recurrent , moderate 296.32 [place] [address] [address] [place] [id number] [address] [place] [address] Dec, Major depressive disorder, r ecurrent episode, moderate 296.32 [place] [id number] [address] [place] [address] Dec, Depression, major, recurrent , moderate 296.32 [place] [address] [place] [address] Dec, Depression, major, recurrent , moderate 296.32 [place] [address] [place] [address] Dec, Depression, major, recurrent , moderate 296.32 [place] [address] [address] Dec, Depression, major, recurrent , moderate 296.32 [place] [address] [address] [place] [id number] [address] [place] [address] Nov, Depression, major, recurrent , moderate 296.32 [facility] [address] [facility] [id number] [address] [place] [address] 16 Nov, 2014 Major depression 296.20 ; So cial phobia 300.23 and No condition on [place] II V71.09 [facility] [address] [facility] [id number] [address] [place] [address] 16 Nov, 2014 Depression, major, recurrent , moderate 296.32 [facility] [address] [place] [id number] [address] [place] [address] Nov, Major depressive disorder, r ecurrent episode, moderate 296.32 and Generalized anxiety disorder 300.02 [facility] [address] [place] [id number] [place] [address] 09 Nov, 2014 Depression, major, recurrent , moderate 296.32 [facility] [address] [place] [id number] [place] [address] Nov, Depression, major, recurrent , moderate 296.32 [facility] [address] [place] [id number] [place] [address] October, Generalized anxiety disorder 300.02 ; No condition on [place] II V71.09 and Major depressive disorder, recurrent 296.30 [facility] [address] [place] [id number] [address] [place] [address] 14 Sep, 2014 [facility] [address] [place] [id number] [address] [place] [address] Sep, [facility] [address] [place] [id number] [address] [place] [address] 24 Aug, 2014 [facility] [address] [place] [id number] [address] [place] [address] Aug, [facility] [address] [place] [id number] [address] [place] [address] Aug, [facility] [address] [place] [id number] [address] [place] [address] Aug, [facility] [address] [address] 20 Aug, 2014 [facility] [address] [id number] [address] [place] [address], [place] [address] 20 Aug, 2014 [facility] [address] [id number] [address] [place] [address], [place] [address] 20 Aug, 2014 [facility] [address] [id number] [address] [place] [address], [place] [address] 20 Aug, 2014 [facility] [address] [id number] [address] [place] [address], [place] [address] 13 Aug, 2014 [facility] [address] [id number] [address] [place] [address], [place] [address] 13 Aug, 2014 [facility] [address] [id number] [address] [place] [address], [place] [address] 13 Aug, 2014 [facility] [address] [id number] [address] [place] [address], [place] [address] Aug, [facility] [address] [id number] [address] [place] [address], [place] [address] Aug, [facility] [address] [id number] [address] [place] [address], [place] [address] Aug, [facility] [address] [id number] [address] [place] [address], [place] [address] 10 Aug, 2014 [facility] [address] [id number] [address] [place] [address], [place] [address] 10 Aug, 2014 [facility] [address] [id number] [address] [place] [address], [place] [address] Aug, [facility] [place] [facility] [address] [id number] [address] [place] [address], [place] [address] Aug, [facility] [address] [id number] [address] [place] [address], [place] [address] 24 Jul, 2014 [facility] [address] [id number] [address] [place] [address], [place] [address] Jul, [facility] [address] [id number] [address] [place] [address], [place] [address] Jul, [facility] [address] [id number] [address] [place] [address], [place] [address] Jul, [facility] [address] [id number] [address] [place] [address], [place] [address] Jul, [facility] [address] [id number] [address] [place] [address], [place] [address] Jul, [facility] [address] [id number] [address] [place] [address], [place] [address] Jun, [facility] [address] [id number] [address] [place] [address], [place] [address] Jun, [facility] [address] [id number] [address] [place] [address], [place] [address] Jun, [facility] [address] [id number] [address] [place] [address], [place] [address] Jun, [facility] [address] [id number] [address] [place] [address], [place] [address] Jun, [facility] [address] [id number] [address] [place] [address], [place] [address] Jun, [facility] [address] [id number] [address] [place] [address], [place] [address] Jun, [facility] [address] [id number] [address] [place] [address], [place] [address] Jun, [facility] [address] [id number] [address] [place] [address], [place] [address] Jun, [facility] [address] [id number] [address] [place] [address], [place] [address] Jun, [facility] [address] [id number] [address] [place] [address], [place] [address] Jun, [facility] [address] [id number] [address] [place] [address] Jun, [facility] [address] [id number] [place] [id number] Jun, [facility] [address] [id number] [address] [place] [address], [place] [address] Jun, [facility] [address] [id number] [address] [place] [address], [place] [address] Jun, [facility] [address] [id number] [address] [place] [address], [place] [address] Jun, [facility] [address] [id number] [address] [place] [address], [place] [address] May, [facility] [address] [id number] [address] [place] [address] May, [facility] [address] [id number] [address] [place] [address], [place] [address] May, [facility] [address] [id number] [address] [place] [address], [place] [address] May, [facility] [address] [id number] [address] [place] [id number] Apr, [facility] [address] [id number] [address] [place] [address], [place] [address] Apr, [facility] [address] [id number] [address] [place] [id number] Apr, [facility] [address] [id number] [address] [place] [address] Apr, [facility] [address] [id number] [address] [place] [address], [place] [address] Apr, [facility] [address] [id number] [address] [place] [address], [place] [address] Apr, [facility] [address] [id number] [address] [place] [address] Apr, [facility] [address] [id number] [address] [place] [address], [place] [address] Apr, [facility] [address] [id number] [address] [place] [address], [place] [address] Apr, [facility] [address] [id number] [address] [place] [address], [place] [address] Apr, [facility] [address] [id number] [address] [place] [address], [place] [address] Apr, [facility] [address] [id number] [address] [place] [address], [place] [address] Apr, [facility] [address] [id number] [address] [place] [address], [place] [address] Apr, [facility] [address] [id number] [address] [place] [address], [place] [address] Apr, [facility] [address] [id number] [address] [place] [address], [place] [address] Apr, [facility] [address] [id number] [address] [place] [address], [place] [address] Apr, [facility] [address] [id number] [address] [place] [address], [place] [address] Apr, [facility] [address] [id number] [address] [place] [address], [place] [address] Apr, [facility] [address] [id number] [address] [place] [address], [place] [address] Apr, [facility] [address] [id number] [address] [place] [address], [place] [address] Apr, [facility] [address] [id number] [address] [place] [address], [place] [address] Mar, [facility] [address] [id number] [address] [place] [address], [place] [address] Mar, [facility] [address] [id number] [address] [place] [address], [place] [address] Mar, [facility] [address] [id number] [address] [place] [address], [place] [address] Mar, [facility] [address] [id number] [address] [place] [address], [place] [address] Mar, [facility] [address] [id number] [address] [place] [address], [place] [address] Mar, [facility] [address] [id number] [address] [place] [address], [place] [address] Mar, [facility] [address] [id number] [address] [place] [address], [place] [address] Mar, [facility] [address] [id number] [address] [place] [address], [place] [address] Mar, [facility] [address] [id number] [address] [place] [address], [place] [address] Mar, [facility] [address] [id number] [address] [place] [address], [place] [address] Feb, [facility] [address] [id number] [address] [place] [address], [place] [address] Feb, [facility] [address] [id number] [address] [place] [address], [place] [address] Feb, [facility] [address] [id number] [address] [place] [address], [place] [address] Feb, [facility] [address] [id number] [address] [place] [address], [place] [address] Jan, [facility] [address] [id number] [address] [place] [address], [place] [address] Jan, [facility] [address] [id number] [address] [place] [address], [place] [address] Jan, [facility] [address] [id number] [address] [place] [address], [place] [address] Jan, [facility] [address] [id number] [address] [place] [address], [place] [address] Jan, [facility] [address] [id number] [address] [place] [address], [place] [address] Jan, [facility] [address] [id number] [address] [place] [address], [place] [address] Dec, [facility] [address] [id number] [address] [place] [address], [place] [address] Dec, [facility] [address] [id number] [address] [place] [address], [place] [address] Nov, [facility] [address] [id number] [address] [place] [address], [place] [address] Nov, [facility] [address] [id number] [address] [place] [address], [place] [address] Nov, [facility] [address] [id number] [address] [place] [address], [place] [address] Nov, [facility] [address] [id number] [address] [place] [address], [place] [address] Nov, [facility] [address] [id number] [address] [place] [address], [place] [address] Nov, [facility] [address] [id number] [address] [place] [address], [place] [address] Sep, [facility] [address] [id number] [address] [place] [address], [place] [address] Sep, [facility] [address] [id number] [address] [place] [address], [place] [address] Sep, [facility] [address] [id number] [address] [place] [address], [place] [address] Sep, [facility] [address] [id number] [address] [place] [address], [place] [address] Aug, [facility] [address] [id number] [address] [place] [address], [place] [address] Aug, [facility] [address] [id number] [address] [place] [address], [place] [address] 14 Jul, 2013 [facility] [address] [id number] [address] [place] [address], [place] [address] 14 Jul, 2013 [facility] [address] [id number] [address] [place] [address], [place] [address] Jun, [facility] [address] [id number] [address] [place] [address], [place] [address] Jun, [facility] [address] [id number] [address] [place] [address], [place] [address] Jun, [facility] [address] [id number] [address] [place] [address], [place] [address] Jun, [facility] [address] [id number] [address] [place] [address], [place] [address] May, [facility] [address] [id number] [address] [place] [address], [place] [address] May, [facility] [address] [id number] [address] [place] [address], [place] [address] May, [facility] [address] [id number] [address] [place] [address], [place] [address] May, [facility] [address] [id number] [address] [place] [address], [place] [address] May, [facility] [address] [id number] [address] [place] [address], [place] [address] May, [facility] [address] [id number] [address] [place] [address], [place] [address] Apr, [facility] [address] [id number] [address] [place] [address], [place] [address] Apr, [facility] [address] [id number] [address] [place] [address], [place] [address] Apr, [facility] [address] [id number] [address] [place] [address] [address] Apr, [facility] [address] [id number] [address] [place] [address], [place] [address] Mar, [facility] [address] [id number] [address] [place] [address], [place] [address] Mar, [facility] [address] [id number] [address] [place] [address], [place] [address] Mar, [facility] [address] [id number] [address] [place] [address], [place] [address] Mar, [facility] [address] [id number] [address] [place] [address], [place] [address] Feb, [facility] [address] [id number] [place] [id number] Jan, [facility] [address] [id number] [address] [place] [address], [place] [address] Jan, [facility] [address] [id number] [address] [place] [address] Dec, [facility] [address] [id number] [address] [place] [address], [place] [address] Dec, [facility] [address] [id number] [address] [place] [address] Dec, [facility] [address] [id number] [place] [id number] Dec, [facility] [address] [id number] [address] [place] [address] Nov, [facility] [address] [id number] [address] [place] [address], [place] [address] 14 Nov, 2012 [facility] [address] [id number] [address] [place] [address], [place] [address] Nov, [facility] [address] [id number] [address] [place] [address] Nov, [facility] [address] [id number] [address] [place] [address] Nov, [facility] [address] [facility] [id number] [address] [place] [address] October, [facility] [address] [facility] [id number] [address] [place] [address] October, [facility] [address] [facility] [id number] [address] [place] [address] Aug, [facility] [address] [facility] [id number] [address] [place] [address] Nov, IMMUNIZATIONS No Known Immunizations SOCIAL HISTORY [...] 03/2016 Hospitalization History gastric sleeve Hospitalization History [facility] Trouble with left shoulder blade 08/2017
--- OUTSIDE RECORDS SUMMARY | 2019-11-29 09:08 | XMS REPORT ---
Author Author Curt Daniel Doctor Organization [facility] Address Unknown Phone Unavailable Care Team Providers Care Finger Buff Sewer Name Role Phone Migration, Doctor Unavailable Unavailable PROBLEMS Type Condition ICD9-CM Code XTQ86-AJ Code Onset Dates Condition S tatus SNOMED Code Problem Insomnia G47.00 Active 767438412 Problem Hyperlipemia E78.5 Active 4983084 4 Problem Morbid obesity E66.01 Active 35905 6002 Problem Benign essential hypertension I10 Active 7652426 Problem Renal insufficiency N28.9 Active 640598933 Problem Edema R60.9 Active 041286345 Problem Severe episode of recurrent major depressive disorder, without psychotic features F33.2 Active 40349262 Problem Metabolic syndrome E88.81 Active 2 38680961 Problem DANIELA (generalized anxiety disorder) F41.1 Active 90769334 Problem BMI 45.0-49.9, adult Z68.42 Active 364012132 Problem Sciatica, right side M54.31 Active 967282808061693 Problem Hammer toe of second toe of right foot M20.41 Active 906116062 Problem Mixed obsessional thoughts and acts F42.2 Active 25688499 Problem Hammer toe of right foot M20.41 Activ e 568304046 Problem Vitamin D deficiency E55.9 Active 51251204 Problem Chronic fatigue R53.82 Active 8422 9001 Problem Other chronic pain G89.29 Active 8 8827399 Problem Borderline personality disorder F60.3 Active 61641608 Problem Callous ulcer, limited to breakdown of skin L98.49 1 Active ALLERGIES No Information ENCOUNTERS Encounter Location Date Diagnosis [facility] [address] [facility] [id number] [place] [id number] Jun, [facility] [address] [facility] [id number] [address] [place] [phone] Feb, [facility] [address] [facility] [id number] [address] [place] [phone] Jan, [facility] [address] [facility] [id number] [address] [place] [phone] Jan, [facility] [address] [facility] [id number] [address] [place] [phone] Jan, [facility] [address] [place] [address] AVE [id number], [place] [id number] Jan, Callus of heel L84 ; Fissure in skin R23 .4 and Hammer toe of second toe of right foot M20.[address] [id number] [place] [address] [id number] Jan, [place] [address] [place] [id number] [address] [place] [phone] Jan, [place] [address] [place] [id number] [place] [phone] Jan, [place] [address] [address] Jan, Severe episode of recurrent major depressive disorder, without psychotic features F33.2 ; DANIELA (generalized anxiety disorder) F41.1 ; Mixed obsessional thoughts and acts F42.2 and Borderline personality disorder F60.3 [place] [address] [place] [id number] [address] [place] [phone] Jan, [address] [id number], [place] [id number] Jan, Benign essential hypertension I10 [address] [id number] [place] [address] [id number] Dec, Callous ulcer, limited to breakdown of s kin L98.491 [address] E66.01 [facility] [address] [facility] [id number] [address] [place] [phone] Dec, [place] [address] [facility] [id number] [address] [place] [phone] Dec, [facility] [address] [place] [id number] [address] [place] [phone] Dec, [facility] [address] [id number] [address] [place] [phone] Dec, [facility] [address] [facility] [id number] [address] [place] [phone] Dec, Severe episode of recurrent major depressive disorder, without psychotic features F33.2 [facility] [address] [facility] [id number] [address] [place] [phone] Dec, DANIELA (generalized anxiety dis order) F41.1 ; Severe episode of recurrent major depressive disorder, without psychotic features F33.2 ; Mixed obsessional thoughts and acts F42.2 and 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 [facility] [place] [address] [id number], [place] [id number] Dec, Morbid obesity E66.01 [facility] [address] [facility] [id number] [address] [place] [phone] Dec, [facility] [address] [facility] [id number] [address] [place] [phone] Dec, [address] [address] Nov, [facility] [address] [address] [id number], [place] [id number] Nov, [facility] [address] [facility] [id number] [address] [place] [phone] Nov, [facility] [address] [facility] [id number] [address] [place] [id number] Nov, [facility] [address] [facility] [id number] [address] [place] [phone] Nov, DANIELA (generalized anxiety dis order) F41.1 ; Severe episode of recurrent major depressive disorder, without psychotic features F33.2 ; Mixed obsessional thoughts and acts F42.2 and 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 [facility] [place] [address] [id number], [place] [id number] Nov, Morbid obesity E66.01 [facility] [address] [facility] [id number] [address] [place] [phone] Nov, [facility] [address] [place] [id number] [address] [place] [phone] Nov, DANIELA (generalized anxiety dis order) F41.1 ; Mixed obsessional thoughts and acts F42.2 ; Severe episode of recurrent major depressive disorder, without psychotic features F33.2 and 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 [address] [id number], [place] [id number] October, Morbid obesity E66.01 [facility] [address] [id number], [place] [id number] October, Benign essential hypertension I10 and Mo rbid obesity E66.01 [facility] [address] [id number], [place] [id number] October, [facility] [address] [facility] [id number] [address] [place] [phone] October, Severe episode of recurrent major depressive disorder, without psychotic features F33.2 [facility] [address] [id number], [place] [id number] October, Morbid obesity E66.01 [facility] [address] [id number], [place] [id number] October, [facility] [address] [facility] [id number] [address] [place] [phone] October, Severe episode of recurrent major depressive disorder, without psychotic features F33.2 ; DANIELA (generalized anxiety disorder) F41.1 ; Mixed obsessional thoughts and acts F42.2 and 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 [address] [id number], [place] [id number] October, Morbid obesity E66.01 [facility] [address] [id number] [address] [place] [address] [id number] Sep, Dental examination Z01.[address] [facility] [address] [address] [id number], [place] [id number] Sep, [facility] [address] [facility] [id number] [address] [place] [phone] Sep, Sore in mouth K13.79 and Mor bid obesity E66.01 [facility] [address] [facility] [id number] [address] [place] [phone] Sep, Dental examination Z01.20 [facility] [address] [facility] [id number] [address] [place] [phone] Sep, Anxiety disorder, unspecifie d F41.[id number] [place] [address] [id number] Sep, Mouth ulcer K12.[address] [id number] [place] [address] [id number] Sep, Morbid obesity E66.01 [facility] [address] [facility] [id number] [place] [address] [id number] Sep, Allergic rhinitis, unspecified seasonali ty, unspecified trigger J30.9 and Shortness of breath R06.[address] [id number], [place] [id number] Sep, 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 [id number], [place] [id number] Aug, Mouth abscess K12.2 ; Mouth ulcer K12.1 ; Bloating R14.0 and Morbid obesity E66.01 [facility] [address] [id number], [place] [id number] Aug, [facility] [address] [id number] [place] [address] [id number] Aug, [facility] [address] [id number], [place] [id number] Jul, Major depressive disorder, recurrent, mo derate F33.1 ; Abscess of arm, left L02.414 ; BMI 45.0-49.9, adult Z68.42 and Morbid obesity E66.01 [facility] Jama [facility] [address] [id number], [place] [id number] Jul, [facility] [address] [id number], [place] [id number] Jul, [facility] [address] [id number], [place] [id number] Jun, Pain in right knee M25.561 and Other chr onic pain G89.29 [facility] [address] [id number], [place] [id number] Jun, Benign essential hypertension I10 ; BMI 45.0-49.9, adult Z68.42 ; Morbid obesity E66.01 ; Vitamin D deficiency E55.9 ; Insomnia G47.00 ; 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 ; Edema R60.9 ; Recurrent major depressive disorder, in partial remission F33.41 ; Chronic fatigue R53.82 ; Acute pain of right knee M25.561 ; Metabolic syndrome E88.81 and Irritable mood R45.4 [place] [address] [place] [id number] [address] [place] [address] Jun, [facility] Jama [facility] [address] [id number], [place] [id number] Jun, Irritable mood R45.4 [place] [address] [place] [id number] [address] [place] [phone] May, [facility] [address] [place] [id number] [address] [place] [id number] May, [facility] [address] [facility] [id number] [address] [place] [phone] May, Recurrent major depressive d isorder, in partial remission F33.41 ; Mixed obsessional thoughts and acts F42.2 ; 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 and BMI 45.0-49.9, adult Z68.42 [facility] [address] [place] [id number] [address] [place] [phone] Apr, [facility] [address] [facility] [id number] [address] [place] [phone] Apr, [facility] [address] [place] [id number] [address] [place] [phone] Apr, [facility] [address] [place] [id number] [address] [place] [phone] Apr, [facility] [address] [place] [id number] [address] [place] [phone] Mar, Mixed obsessional thoughts a nd acts F42.2 ; Recurrent major depressive disorder, in partial remission F33.41 ; DANIELA (generalized anxiety disorder) F41.1 and BMI 45.0-49.9, adult Z68.[address] [place] [id number] [place] [address] [id number] Mar, [address] [id number] [place] [address] [id number] Mar, BMI 45.0-49.9, adult Z68.42 ; Instabilit y of right knee joint M25.361 and Rash R21 [place] [address] [place] [id number] [address] [place] [phone] Jan, Recurrent major depressive d isorder, in partial remission F33.41 ; Mixed obsessional thoughts and acts F42.2 and BMI 45.0-49.9, adult Z68.[address] [place] [id number] [place] [address] [id number] Jan, [place] [id number] [place] [address] [id number] Jan, Benign essential hypertension I10 ; BMI 45.0-49.9, adult Z68.42 ; Metabolic syndrome E88.81 and Allergic rhinitis, unspecified seasonality, unspecified trigger J30.9 [facility] [address] [facility] [id number] [address] [place] [phone] Dec, DANIELA (generalized anxiety dis order) F41.1 and Depressive disorder, not elsewhere classified F32.9 [facility] [address] [id number] [place] [id number] Dec, Recurrent major depressive disorder, in partial remission F33.[address] [facility] [address] [address] [id number] [place] [id number] Dec, [facility] [address] [id number], [place] [id number] Nov, [facility] [address] [id number] [place] [id number] Nov, Recurrent major depressive disorder, in partial remission F33.41 [facility] [address] [place] [id number] [address] [place] [phone] Nov, Recurrent major depressive d isorder, in partial remission F33.41 ; Mixed obsessional thoughts and acts F42.2 ; DANIELA (generalized anxiety disorder) F41.1 and BMI 45.0-49.9, adult Z68.42 [facility] [address] [id number], [place] [id number] Nov, [facility] [address] [id number], [place] [id number] Nov, Other conjunctivitis of both eyes H10.89 and Sciatica, right side M54.31 [facility] [address] [id number], [place] [id number] Nov, [facility] [place] [address] [id number] [place] Labs[place] [id number] Nov, [facility] [address] [id number], [place] [id number] October, [facility] [address] [address] [id number] [place] [id number] October, [facility] [address] [facility] [id number] [address] [place] [phone] October, BMI 45.0-49.9, adult Z68.42 ; Mixed obsessional thoughts and acts F42.2 ; Recurrent major depressive disorder, in partial remission F33.41 and DANIELA (generalized anxiety disorder) F41.1 [facility] [place] [address] [place] [address] AVE [id number], [place] [id number] October, Benign essential hypertension I10 ; Morb id obesity E66.01 and BMI 45.0-49.9, adult Z68.42 [facility] [address] [id number], [place] [id number] Sep, [facility] [address] [id number] [place] [address] [id number] Sep, [facility] [place] [id number] [place] [address] [id number] Sep, [facility] [place] [id number] [place] [address] [id number] Sep, Hospital discharge follow-up Z09 ; Aller gic rhinitis, unspecified seasonality, unspecified trigger J30.9 and Shortness of breath R06.02 [facility] [place] [address] [place] [address] [place] [id number], [place] [id number] Sep, Recurrent major depressive disorder, in partial remission F33.41 [facility] [address] [id number] [place] [address] [id number] Aug, Irritable mood R45.4 [place] [address] [place] [id number] [address] [place] [phone] Aug, [facility] [address] [id number] [place] [address] [id number] Jul, Benign essential hypertension I10 ; Robert a R60.9 and Impacted cerumen of left ear H61.22 [place] [address] [phone] Jul, Major depression F32.9 ; Rec urrent major depressive disorder, in partial remission F33.41 and Anxiety F41.9 [place] [address] [address] Jun, Major depression F32.9 ; Rec urrent major depressive disorder, in partial remission F33.41 and Anxiety F41.9 [facility] [address] [id number], [place] [id number] Jun, Major depression F32.9 ; Morbid obesity E66.01 ; Irritable mood R45.4 ; Hand weakness R29.898 and Vitamin D deficiency E55.9 [facility] [address] [id number], [place] [id number] Jun, [facility] [place] [id number] [place] [address] [id number] May, Major depression F32.9 [facility] [address] [facility] [id number] [address] [place] [address] May, Major depression F32.[address] [place] [id number] [place] [address] [id number] May, BMI 50.0-59.9, adult Z68.43 ; Major depr ession F32.9 ; Anxiety F41.9 ; Hypertrophic toenail L60.2 and Pain of left great toe M79.[address] [place] [id number] [place] [address] [id number] May, Recurrent major depressive disorder, in partial remission F33.41 [facility] [address] [place] [id number] [address] [place] [phone] Apr, [facility] [address] [id number], [place] [id number] Apr, [facility] [address] [facility] [id number] [address] [place] [phone] Apr, Major depression F32.9 [facility] [id number] [place] [address] [id number] Apr, Severe episode of recurrent major depres sive disorder, without psychotic features F33.2 ; Anxiety F41.[address] [facility] [address] [id number], [place] [id number] Apr, [facility] [address] [facility] [id number] [address] [place] [phone] Apr, [facility] [address] [id number], [place] [id number] Apr, [facility] [address] [address] [id number], [place] [id number] Mar, [facility] [address] [id number], [place] [id number] Mar, Allergic conjunctivitis of both eyes H10 .13 [facility] [address] [facility] [id number] [address] [place] [phone] Mar, Major depression F32.[address] [place] [address] [id number], [place] [id number] Mar, Metabolic syndrome E88.81 ; History of g astric bypass Z98.890 ; Benign essential hypertension I10 ; Allergic conjunctivitis of both eyes H10.13 and Morbid obesity E66.01 [facility] [address] [facility] [id number] [address] [place] [phone] Mar, Major depression F32.9 [facility] [address] [id number], [place] [id number] Feb, [facility] [address] [facility] [id number] [address] [place] [phone] Feb, Major depression F32.9 [facility] [address] [id number], [place] [id number] Feb, Subacute maxillary sinusitis J01.[address] [facility] [address] [facility] [id number] [address] [place] [phone] 06 Feb, 2017 Major depressive disorder, r ecurrent, moderate F33.1 [facility] [address] [id number], [place] [id number] Jan, [facility] [address] [id number], [place] [id number] Jan, Acute non-recurrent maxillary sinusitis J01.00 and Skin tag L91.[address] [address] [id number], [place] [id number] Jan, Cough R05 and Sinus congestion R09.81 [facility] [place] [address] [place] [address] A[place] [id number], [place] [id number] Jan, [facility] [id number], [place] [id number] Jan, Benign essential hypertension I10 ; Hist ory of gastric bypass Z98.890 and Nausea and vomiting in adult R11.2 [place] [address] [place] [id number] [address] [place] [phone] 04 Jan, 2017 Major depressive disorder, r ecurrent, moderate F33.1 [place] [address] [place] [id number] [address] [place] [phone] 12 Dec, 2016 Insomnia G47.00 ; Recurrent major depressive disorder, in partial remission F33.41 and Morbid obesity E66.01 [facility] [place] [address] [place] [address] AVE [id number], [place] [id number] Dec, [facility] [id number], [place] [id number] Dec, Chronic bacterial conjunctivitis of left eye H10.402 [facility] [id number], [place] [id number] Nov, [facility] [address] [id number], [place] [id number] Nov, Dental examination Z01.20 [facility] [address] [id number], [place] [id number] Nov, Benign essential hypertension I10 ; Hist ory of gastric bypass Z98.890 and Nausea and vomiting in adult R11.2 [place] [address] [place] [id number] [address] [place] [address] Nov, Major depressive disorder, r ecurrent, moderate F33.1 ; Generalized anxiety disorder F41.1 and Insomnia due to other mental disorder F51.05 [place] [address] [facility] [id number] [address] [place] [address] Nov, Recurrent major depressive d isorder, in partial remission F33.41 ; Insomnia G47.00 and Morbid obesity E66.01 [facility] [address] [id number] [place] [id number] October, Abscess of left arm L02.414 [place] [address] [address] [facility] [id number] [address] [place] [id number] October, Morbid obesity E66.01 ; Lida r depression F32.9 and Recurrent major depressive disorder, in partial remission F33.41 [facility] [address] [id number] [id number] Sep, Benign essential hypertension I10 ; Morb id obesity E66.01 ; S/P gastric bypass Z98.84 ; Abscess L02.91 and Chronic bacterial conjunctivitis of left eye H10.[address] [place] [id number] [place] [id number] Sep, Dental examination Z01.[address] [id number] [address] [place] [id number] Sep, Morbid obesity E66.01 ; Lida r depression F32.9 and Recurrent major depressive disorder, in partial remission F33.41 [place] [address] [address] [facility] [id number] [address] [place] [id number] Jul, [place] [address] [address] [facility] [id number] [address] [place] [id number] Jul, Major depressive disorder, r ecurrent, moderate F33.1 [place] [address] [address] [facility] [id number] [address] [place] [id number] Jul, Major depressive disorder, r ecurrent, moderate F33.1 and Generalized anxiety disorder F41.[address] [facility] [address] [id number] [id number] Jul, Cough R05 [facility] [address] [facility] [id number] [address] [place] [id number] Jul, Morbid obesity E66.01 ; Lida r depression F32.9 and Recurrent major depressive disorder, in partial remission F33.41 [facility] [id number] [place] [id number] Jul, [facility] [id number] [place] [id number] Jul, [facility] [place] [id number] [place] [id number] Jul, Gastroenteritis K52.9 and Cough R[id number] [place] [id number] Jun, Acute bacterial conjunctivitis of left e ye H10.32 [facility] [address] [facility] [id number] [address] [place] [address] Jun, [place] [address] [facility] [id number] [address] [place] [address] Jun, Recurrent major depressive d isorder, in partial remission F33.41 [facility] [address] [place] [id number] [address] [place] [address] May, Major depression F32.9 and M orbid obesity E66.01 [facility] [address] [facility] [id number] [address] [place] [address] May, [facility] [id number] [place] [address] [id number] May, Thrush B37.0 [facility] [address] [place] [id number] [address] [place] [address] 15 Apr, 2016 Major depressive disorder, r ecurrent, moderate F33.1 [place] [address] [facility] [id number] [address] [place] [address] 15 Apr, 2016 Insomnia G47.00 ; Major depr ession F32.9 and Recurrent major depressive disorder, in partial remission F33.41 [place] [address] [facility] [id number] [address] [place] [address] Apr, [place] [address] [facility] [id number] [address] [place] [address] Apr, Major depression F32.9 and R ecurrent major depressive disorder, in partial remission F33.41 [facility] [address] [id number][place] [id number] Mar, Benign essential hypertension I10 ; Morb id obesity E66.01 ; Impacted cerumen of both ears H61.23 ; Laceration of finger of right hand, initial encounter S61.219A and Encounter for immunization Z23 [place] [address] [facility] [id number] [address] [place] [address] 17 Mar, 2016 [place] [address] [facility] [id number] [address] [place] [address] Mar, [place] [address] [facility] [id number] [address] [place] [address] Mar, [place] [address] [id number][place] [id number] Feb, Nausea R11.0 ; Blood in the stool K92.1 and Benign essential hypertension I10 [place] [address] [facility] [id number] [address] [place] [address] Feb, Major depression F32.9 and R ecurrent major depressive disorder, in partial remission F33.41 [facility] [address] [id number], [place] [id number] Feb, [facility] [address] [id number][place] [id number] Feb, Recurrent major depressive disorder, in partial remission F33.41 [facility] [address] [id number], [place] [id number] Jan, [facility] [address] [id number], [place] [id number] Jan, Benign essential hypertension I10 ; Robert a R60.9 and Hyperlipidemia, unspecified hyperlipidemia type E78.5 [facility] [address] [id number], [place] [id number] Jan, Recurrent major depressive disorder, in partial remission F33.41 [facility] [address] [id number] [place] [id number] Jan, [facility] [address] [id number], [place] [id number] Jan, [facility] [address] [id number], [place] [id number] Jan, [facility] [address] [facility] [id number] [address] [place] [address] Jan, [facility] [address] [facility] [id number] [address] [place] [address] Dec, [facility] [address] [facility] [id number] [address] [place] [address] Nov, [facility] [address] [facility] [id number] [address] [place] [address] Nov, Major depression F32.9 [facility] [address] [facility] [id number] [address] [place] [address] Nov, [facility] [address] [facility] [id number] [address] [place] [address] Nov, [facility] [address] [facility] [id number] [address] [place] [address] Nov, Major depressive disorder, r ecurrent episode, mild F33.0 and Anxiety F41.9 [facility] [address] [id number], [place] [id number] Nov, [facility] [address] [id number], [place] [id number] October, Left elbow pain M25.522 and Other season al allergic rhinitis J30.2 [facility] [address] [facility] [address] [id number], [place] [id number] October, [facility] [address] [facility] [id number] [address] [place] [address] October, Major depressive disorder, r ecurrent, moderate F33.1 [facility] [address] [facility] [id number] [address] [place] [address] October, Major depression F32.9 [facility] [address] [facility] [id number] [address] [place] [address] Sep, [place] or callus L84 and Onych omycosis B35.1 [facility] [address] [facility] [id number] [address] [place] [address] Sep, Major depressive disorder, r ecurrent, moderate F33.1 [facility] [address] [facility] [id number] [address] [place] [address] Sep, Major depression F32.9 [facility] [address] [facility] [id number] [address] [place] [address] Sep, Moderate episode of recurren t major depressive disorder F33.1 [facility] [address] [facility] [address] [id number], [place] [id number] Sep, Muscle strain T14.8 [facility] [address] [facility] [id number] [address] [place] [address] Aug, Major depression F32.9 [facility] [address] [facility] [id number] [address] [place] [address] Aug, Major depression F32.9 [facility] [address] [facility] [id number] [address] [place] [address] Jul, Morbid obesity E66.01 and Ma cora depression F32.9 [facility] [address] [facility] [id number] [address] [place] [address] Jul, Depression, major, recurrent , moderate F33.[address] [id number], [place] [id number] Jul, [facility] [address] [facility] [id number] [address] [place] [address] Jul, [facility] [address] [facility] [id number] [address] [place] [address] Jul, Major depression F32.9 and M orbid obesity E66.[id number] [place] [address] [id number] Jul, Type II diabetes mellitus E11.9 ; Callus of foot L84 ; Benign essential hypertension I10 and Renal insufficiency N28.9 [facility] [address] [facility] [id number] [address] [place] [address] Jul, Depression, major, recurrent , moderate F33.1 [facility] [address] [facility] [id number] [address] [place] [address] Jul, Major depression F32.9 [place] [address] [place] [id number] [address] [place] [id number] Jul, [facility] [address] [facility] [id number] [address] [place] [address] Jun, Major depression F32.9 [facility] [address] [facility] [id number] [address] [place] [address] Jun, Major depressive disorder, r ecurrent, moderate F33.1 [facility] [address] [facility] [id number] [address] [place] [address] Jun, [place] [address] [facility] [id number] [address] [place] [address] Jun, Major depressive disorder, r ecurrent, moderate F33.1 and Major depression F32.[address] [id number], [place] [id number] Jun, Type II diabetes mellitus E11.9 [place] [address] [facility] [id number] [address] [place] [address] Jun, Depression, major, recurrent , moderate F33.1 [place] [address] [facility] [id number] [address] [place] [address] May, Major depressive disorder, r ecurrent, moderate F33.1 [place] [address] [facility] [id number] [address] [place] [address] May, [place] [id number] [place] [address] [id number] May, Edema R60.9 [place] [address] [place] [id number] [address] [place] [address] May, Insomnia G47.00 and Major de pression F32.9 [facility] [id number] [place] [address] [id number] May, Morbid obesity E66.01 ; Edema R60.9 ; Sh ortness of breath R06.02 ; Benign essential hypertension I10 and Renal insufficiency N28.9 [facility] [address] [id number], [place] [id number] May, Hyperlipemia 272.4 and Renal insufficien cy N28.9 [place] [address] [facility] [id number] [address] [place] [address] Apr, Major depression F32.9 [place] [address] [facility] [id number] [address] [place] [address] Apr, [place] [address] [facility] [id number] [address] [place] [address] Apr, Major depressive disorder, r ecurrent, moderate F33.1 [facility] [address] [id number], [place] [id number] Apr, Type II diabetes mellitus E11.9 ; Benign essential hypertension I10 ; Edema R60.9 and [address]al insufficiency N28.9 [facility] [address] [facility] [id number] [address] [place] [address] Mar, Major depressive disorder, r ecurrent, moderate F33.1 [facility] [address] [facility] [id number] [address] [place] [address] Mar, [facility] [address] [place] [id number] [address] [place] [address] Mar, Major depression F32.9 [facility] [id number] [place] [address] [id number] Mar, Morbid obesity E66.01 ; Benign essential hypertension I10 and Type II diabetes mellitus E11.9 [place] [address] [facility] [id number] [address] [place] [address] Feb, Major depressive disorder, r ecurrent, moderate F33.1 [place] [address] [place] [id number] [address] [place] [address] Feb, Major depressive disorder, r ecurrent episode, in partial or unspecified remission 296.35 ; Anxiety state, unspecified 300.00 and Morbid obesity 278.01 [place] [address] [place] [id number] [address] [place] [address] Feb, [place] [id number] [place] [address] [id number] Feb, Vomiting 787.03 and Viral syndrome 079.9 9 [place] [address] [facility] [id number] [address] [place] [address] 15 Feb, 2015 Major depression, recurrent 296.30 ; Generalized anxiety disorder 300.02 and No condition on [place] II V71.09 [facility] [id number] [place] [address] [id number] Feb, Skin tag 701.9 [facility] [address] [facility] [id number] [address] [place] [address] Feb, [facility] [address] [place] [id number] [address] [place] [address] Jan, Depression, major, recurrent , moderate 296.[address] [id number], [place] [id number] Jan, Nausea and vomiting 787.01 ; Rib pain on right side 786.50 and Fall on or from sidewalk curb E880.1 [facility] [address] [facility] [id number] [address] [place] [address] Jan, [facility] [address] [place] [id number] [address] [place] [address] Jan, Major depressive disorder, r ecurrent episode, in partial or unspecified remission 296.35 and Anxiety state, unspecified 300.[address] [id number], [place] [id number] Jan, [facility] [address] [facility] [id number] [address] [place] [address] Jan, Depression, major, recurrent , moderate 296.32 [facility] [address] [facility] [id number] [address] [place] [address] Jan, Major depression, recurrent 296.30 ; No condition on [place] II V71.09 and No condition on axis III V71.[address] [id number], [place] [id number] Jan, Drug-induced nausea and vomiting 787.01 [facility] [address] [facility] [id number] [address] [place] [address] Jan, Depression, major, recurrent , moderate 296.32 [place] [address] [facility] [id number] [address] [place] [address] Dec, Depression, major, recurrent , moderate 296.[address] [id number] [place] [address] [id number] Dec, Morbid obesity 278.01 ; Metabolic syndro me 277.7 ; Hyperlipemia 272.4 ; Benign essential hypertension 401.1 ; Dietary counseling V65.3 ; Exercise counseling V65.41 and Inflamed skin tag 701.9 [place] [address] [address] Dec, Depression, major, recurrent , moderate 296.32 [place] [address] [address] Dec, [place] [address] [address] Dec, Major depression, recurrent 296.30 ; Anxiety, generalized 300.02 and No condition on [place] II V71.09 [place] [address] [address] Dec, Depression, major, recurrent , moderate 296.32 [place] [address] [address] Dec, Major depressive disorder, r ecurrent episode, moderate 296.[address] [address] Dec, Depression, major, recurrent , moderate 296.32 [place] [address] [address] Dec, Depression, major, recurrent , moderate 296.32 [place] [address] [address] Dec, Depression, major, recurrent , moderate 296.32 [place] [address] [address] Dec, Depression, major, recurrent , moderate 296.[address] [address] Nov, Depression, major, recurrent , moderate 296.32 [place] [address] [address] Nov, Major depression 296.20 ; So cial phobia 300.23 and No condition on [place] II V71.09 [place] [address] [facility] [id number] [address] [place] [address] 16 Nov, 2014 Depression, major, recurrent , moderate 296.32 [facility] [address] [facility] [id number] [address] [place] [address] 09 Nov, 2014 Major depressive disorder, r ecurrent episode, moderate 296.32 and Generalized anxiety disorder 300.02 [facility] [address] [facility] [id number] [address] [place] [address] Nov, Depression, major, recurrent , moderate 296.32 [facility] [address] [facility] [id number] [address] [place] [address] Nov, Depression, major, recurrent , moderate 296.32 [facility] [address] [place] [id number] [address] [place] [address] October, Generalized anxiety disorder 300.02 ; No condition on [place] II V71.09 and Major depressive disorder, recurrent 296.30 [facility] [address] [place] [id number] [address] [place] [address] [address], [address] [facility] [address] [facility] [id number] [address] [place] [address] Sep, [facility] [address] [place] [id number] [address] [place] [address] Aug, [facility] [address] [place] [id number] [address] [place] [address] Aug, [facility] [address] [place] [id number] [address] [place] [address] Aug, [facility] [address] [facility] [id number] [address] [place] [address] Aug, [facility] [address] [place] [id number] [address] [place] [address] Aug, [facility] [address] [place] [id number] [address] [place] [address] Aug, [facility] [address] [place] [id number] [address] [place] [address] [place] [address] 20 Aug, 2014 [facility] [address] [id number] [address] [place] [address], [place] [address] 20 Aug, 2014 [facility] [address] [id number] [address] [place] [address], [place] [address] 13 Aug, 2014 [facility] [address] [id number] [address] [place] [address], [place] [address] 13 Aug, 2014 [facility] [address] [id number] [address] [place] [address], [place] [address] 13 Aug, 2014 [facility] [address] [id number] [address] [place] [address], [place] [address] 13 Aug, 2014 [facility] [address] [id number] [address] [place] [address], [place] [address] Aug, [facility] [address] [id number] [address] [place] [address], [place] [address] Aug, [facility] [address] [id number] [address] [place] [address], [place] [address] 10 Aug, 2014 [facility] [address] [id number] [address] [place] [address], [place] [address] 10 Aug, 2014 [facility] [address] [id number] [address] [place] [address], [place] [address] Aug, [facility] [address] [id number] [address] [place] [address], [place] [address] Aug, [facility] [address] [id number] [address] [place] [address], [place] [address] 24 Jul, 2014 [facility] [address] [id number] [address] [place] [address], [place] [address] Jul, 2014 [facility] [address] [id number] [address] [place] [address], [place] [address] 16 Jul, 2014 [facility] [address] [id number] [address] [place] [address], [place] [address] 16 Jul, 2014 [facility] [address] [id number] [address] [place] [address], [place] [address] Jul, [facility] [address] [id number] [address] [place] [address], [place] [address] Jul, [facility] [address] [id number] [address] [place] [address], [place] [address] Jun, [facility] [address] [id number] [address] [place] [address], [place] [address] Jun, [facility] [address] [id number] [address] [place] [address], [place] [address] Jun, [facility] [address] [id number] [address] [place] [address], [place] [address] Jun, [facility] [address] [id number] [address] [place] [address], [place] [address] Jun, [facility] [address] [id number] [address] [place] [address], [place] [address] Jun, [facility] [address] [id number] [address] [place] [address], [place] [address] Jun, [facility] [address] [id number] [address] [place] [address], [place] [address] Jun, [facility] [address] [id number] [address] [place] [address], [place] [address] Jun, [facility] [address] [id number] [address] [place] [address] Jun, [facility] [address] [id number] [address] [place] [address], [place] [address] Jun, [facility] [address] [id number] [address] [place] [address], [place] [address] Jun, [facility] [place] [address] [id number] [place] [id number] Jun, [facility] [address] [id number] [address] [place] [address] Jun, [facility] [address] [id number] [address] [place] [address], [place] [address] Jun, [facility] [address] [id number] [address] [place] [address], [place] [address] Jun, [facility] [address] [id number] [address] [place] [address], [place] [address] May, [facility] [address] [id number] [address] [place] [address] May, [facility] [address] [id number] [address] [place] [address], [place] [address] May, [facility] [address] [id number] [address] [place] [address], [place] [address] May, [facility] [address] [id number] [address] [place] [address], [place] [address] Apr, [facility] [address] [id number] [address] [place] [address], [place] [address] Apr, [facility] [address] [id number] [address] [place] [address] Apr, [facility] [address] [id number] [address] [place] [address], [place] [address] Apr, [facility] [address] [id number] [address] [place] [phone] Apr, [facility] [address] [id number] [address] [place] [address] Apr, [facility] [address] [id number] [address] [place] [address], [place] [address] Apr, [facility] [address] [id number] [address] [place] [address], [place] [address] Apr, [facility] [address] [id number] [address] [place] [address] Apr, [facility] [address] [id number] [address] [place] [address], [place] [address] Apr, [facility] [address] [id number] [address] [place] [address], [place] [address] Apr, [facility] [address] [id number] [address] [place] [address], [place] [address] Apr, [facility] [address] [id number] [address] [place] [address], [place] [address] Apr, [facility] [address] [id number] [address] [place] [address], [place] [address] Apr, [facility] [address] [id number] [address] [place] [address], [place] [address] Apr, [facility] [address] [id number] [address] [place] [address], [place] [address] Apr, [facility] [address] [id number] [address] [place] [address], [place] [address] Apr, [facility] [address] [id number] [address] [place] [address], [place] [address] Apr, [facility] [address] [id number] [address] [place] [address], [place] [address] Apr, [facility] [address] [id number] [address] [place] [address], [place] [address] Apr, [facility] [address] [id number] [address] [place] [address], [place] [address] Mar, [facility] [address] [id number] [address] [place] [address], [place] [address] Mar, [facility] [address] [id number] [address] [place] [address], [place] [address] Mar, [facility] [address] [id number] [address] [place] [address], [place] [address] Mar, [facility] [address] [id number] [address] [place] [address], [place] [address] Mar, [facility] [address] [id number] [address] [place] [address], [place] [address] Mar, [facility] [facility] [address] [id number] [address] [place] [address], [place] [address] Mar, [facility] [address] [id number] [address] [place] [address], [place] [address] Mar, [facility] [address] [id number] [address] [place] [address], [place] [address] Mar, [facility] [address] [id number] [address] [place] [address], [place] [address] Mar, [facility] [address] [id number] [address] [place] [address], [place] [address] Feb, [facility] [address] [id number] [address] [place] [address], [place] [address] Feb, [facility] [address] [id number] [address] [place] [address], [place] [address] Feb, [facility] [address] [id number] [address] [place] [address], [place] [address] Feb, [facility] [address] [id number] [address] [place] [address], [place] [address] Jan, [facility] [address] [id number] [address] [place] [address], [place] [address] Jan, [facility] [address] [id number] [address] [place] [address], [place] [address] Jan, [facility] [address] [id number] [address] [place] [address], [place] [address] Jan, [facility] [address] [id number] [address] [place] [address], [place] [address] Jan, [facility] [address] [id number] [address] [place] [address], [place] [address] Jan, [facility] [address] [id number] [address] [place] [address], [place] [address] Dec, [facility] [address] [id number] [address] [place] [address], [place] [address] Dec, [facility] [address] [id number] [address] [place] [address], [place] [address] Nov, [facility] [address] [id number] [address] [place] [address], [place] [address] Nov, [facility] [address] [id number] [address] [place] [address], [place] [address] Nov, [facility] [address] [id number] [address] [place] [address], [place] [address] Nov, [facility] [address] [id number] [address] [place] [address], [place] [address] Nov, [facility] [address] [id number] [address] [place] [address], [place] [address] Nov, [facility] [address] [id number] [address] [place] [address], [place] [address] Sep, [facility] [address] [id number] [address] [place] [address], [place] [address] Sep, [facility] [address] [id number] [address] [place] [address], [place] [address] Sep, [facility] [address] [id number] [address] [place] [address], [place] [address] Sep, [facility] [address] [id number] [address] [place] [address], [place] [address] Aug, [facility] [address] [id number] [address] [place] [address], [place] [address] Aug, [facility] [address] [id number] [address] [place] [address], [place] [address] Jul, [facility] [address] [id number] [address] [place] [address], [place] [address] Jul, [facility] [address] [id number] [address] [place] [address], [place] [address] Jun, [facility] [address] [id number] [address] [place] [address], [place] [address] Jun, [facility] [address] [id number] [address] [place] [address], [place] [address] Jun, [facility] [address] [id number] [address] [place] [address], [place] [address] Jun, [facility] [address] [id number] [address] [place] [address], [place] [address] May, [facility] [address] [id number] [address] [place] [address], [place] [address] May, [facility] [address] [id number] [address] [place] [address], [place] [address] May, [facility] [address] [id number] [address] [place] [address], [place] [address] May, [facility] [address] [id number] [address] [place] [address], [place] [address] May, [facility] [address] [id number] [address] [place] [address], [place] [address] May, [facility] [address] [id number] [address] [place] [address], [place] [address] Apr, [facility] [address] [id number] [address] [place] [address], [place] [address] Apr, [facility] [address] [id number] [address] [place] [address], [place] [address] Apr, [facility] [address] [id number] [address] [place] [address], [place] [address] Apr, [facility] [address] [id number] [address] [place] [address], [place] [address] Mar, [facility] [address] [id number] [address] [place] [address], [place] [address] Mar, [facility] [address] [id number] [address] [place] [address], [place] [address] Mar, [facility] [address] [id number] [address] [place] [address], [place] [address] Mar, [facility] [address] [id number] [address] [place] [address], [place] [address] Feb, [facility] [address] [id number] [place] [id number] Jan, [facility] [address] [id number] [address] [place] [address], [place] [address] Jan, [facility] [address] [id number] [address] [place] [address], [place] [address] Dec, [facility] [address] [id number] [address] [place] [address], [place] [address] Dec, [facility] [address] [id number] [address] [place] [address] Dec, [facility] [address] [id number] [place] [id number] Dec, [facility] [address] [id number] [address] [place] [address] Nov, [facility] [address] [id number] [address] [place] [address] 14 Nov, 2012 [facility] [address] [id number] [address] [place] [address] Nov, [facility] [address] [id number] [address] [place] [address], [place] [address] Nov, [facility] [address] [id number] [address] [place] [address] Nov, [facility] [address] [id number] [address] [place] [address] October, [facility] [address] [id number] [address] [place] [address] October, [facility] [address] [facility] [id number] [address] [place] [address] Aug, [facility] [address] [facility] [id number] [address] [place] [address] Nov, IMMUNIZATIONS No Known Immunizations SOCIAL HISTORY [...] 03/2016 Hospitalization History gastric sleeve Hospitalization History [facility] ER Trouble with left shoulder blade 08/2017
--- OUTSIDE RECORDS SUMMARY | 2019-11-29 09:08 | XMS REPORT ---
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 Name Role Phone Saul [facility] Unavailable PROBLEMS Type Condition ICD9-CM Code MJM33-IU Code Onset Dates Condition S tatus SNOMED Code Problem Insomnia G47.00 Active 594960907 Problem Hyperlipemia E78.5 Active 2915053 4 Problem Morbid obesity E66.01 Active 68563 6002 Problem Benign essential hypertension I10 Active 9882912 Problem Renal insufficiency N28.9 Active 983684328 Problem Edema R60.9 Active 225648516 Problem Severe episode of recurrent major depressive disorder, without psychotic features F33.2 Active 87353939 Problem Metabolic syndrome E88.81 Active 2 40286102 Problem DANIELA (generalized anxiety disorder) F41.1 Active 28306145 Problem BMI 45.0-49.9, adult Z68.42 Active 820334964 Problem Sciatica, right side M54.31 Active 333450190101456 Problem Hammer toe of second toe of right foot M20.41 Active 979342610 Problem Mixed obsessional thoughts and acts F42.2 Active 66177742 Problem Hammer toe of right foot M20.41 Activ e 742923991 Problem Vitamin D deficiency E55.9 Active 41122115 Problem Chronic fatigue R53.82 Active 8422 9001 Problem Other chronic pain G89.29 Active 8 8529984 Problem Borderline personality disorder F60.3 Active 90942783 Problem Callous ulcer, limited to breakdown of skin L98.49 1 Active ALLERGIES No Information ENCOUNTERS Encounter Location Date Diagnosis [facility] [address] [facility] [address] [id number] [place] [id number] Jun, [facility] [address] [facility] [id number] [place] [id number] 14 Mar, 2019 [facility] [address] [facility] [id number] [address] [place] [phone] Feb, [facility] [address] [facility] [id number] [address] [place] [phone] Feb, [facility] [address] [facility] [id number] [address] [place] [phone] Jan, [facility] [address] [facility] [id number] [address] [place] [phone] Jan, [facility] [address] [facility] [id number] [address] [place] [phone] Jan, [facility] [id number] [place] [id number] Jan, Callus of heel L84 ; Fissure in skin R23 .4 and Hammer toe of second toe of right foot M20.41 [facility] [id number] [place] [id number] Jan, [facility] [address] [facility] [id number] [address] [place] [phone] Jan, [facility] [address] [facility] [id number] [address] [place] [phone] Jan, [facility] [address] [facility] [id number] [address] [place] [phone] Jan, Severe episode of recurrent major depressive disorder, without psychotic features F33.2 ; DANIELA (generalized anxiety disorder) F41.1 ; Mixed obsessional thoughts and acts F42.2 and Borderline personality disorder F60.3 [facility] [address] [facility] [id number] [address] [place] [phone] Jan, [facility] [address] [id number][place] [id number] Jan, Benign essential hypertension I10 [facility] [address] [id number], [place] [id number] Dec, Callous ulcer, limited to breakdown of s kin L98.491 and Morbid obesity E66.01 [facility] [address] [facility] [id number] [address] [place] [phone] Dec, [facility] [address] [facility] [id number] [address] [place] [phone] Dec, [facility] [address] [facility] [id number] [address] [place] [phone] Dec, [facility] [address] [facility] [id number] [address] [place] [phone] Dec, [facility] [address] [facility] [id number] [address] [place] [phone] Dec, Severe episode of recurrent major depressive disorder, without psychotic features F33.2 [facility] [address] [facility] [id number] [address] [place] [phone] Dec, DANIELA (generalized anxiety dis order) F41.1 ; Severe episode of recurrent major depressive disorder, without psychotic features F33.2 ; Mixed obsessional thoughts and acts F42.2 and 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 [facility] [id number] [place] [address] [id number] Dec, Morbid obesity E66.01 [facility] [address] [facility] [id number] [address] [place] [phone] Dec, [facility] [address] [facility] [id number] [address] [place] [phone] Dec, [address] [phone] Nov, [facility] [id number] [place] [address] [id number] Nov, [facility] [address] [facility] [id number] [address] [place] [phone] Nov, [facility] [address] [facility] [id number] [address] [place] [phone] Nov, [facility] [address] [facility] [id number] [address] [place] [phone] Nov, DANIELA (generalized anxiety dis order) F41.1 ; Severe episode of recurrent major depressive disorder, without psychotic features F33.2 ; Mixed obsessional thoughts and acts F42.2 and 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 [id number], [place] [id number] Nov, Morbid obesity E66.01 [facility] [address] [place] [id number] [address] [place] [phone] Nov, [place] [address] [facility] [id number] [address] [place] [phone] Nov, DANIELA (generalized anxiety dis order) F41.1 ; Mixed obsessional thoughts and acts F42.2 ; Severe episode of recurrent major depressive disorder, without psychotic features F33.2 and 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 [id number], [place] [id number] October, Morbid obesity E66.[address] [id number] [place] [address] [id number] October, Benign essential hypertension I10 and Mo rbid obesity E66.[address] [id number], [place] [id number] October, [place] [address] [facility] [id number] [address] [place] [phone] October, Severe episode of recurrent major depressive disorder, without psychotic features F33.[address] [id number], [place] [id number] October, Morbid obesity E66.[address] [id number], [place] [id number] October, [facility] [address] [facility] [id number] [address] [place] [phone] October, Severe episode of recurrent major depressive disorder, without psychotic features F33.2 ; DANIELA (generalized anxiety disorder) F41.1 ; Mixed obsessional thoughts and acts F42.2 and 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 [id number], [place] [id number] October, Morbid obesity E66.01 [facility] [address] [facility] [id number] [address] [place] [id number] Sep, Dental examination Z01.[address] [id number] [place] [address] [id number] Sep, [facility] [address] [facility] [id number] [place] [address] Sep, Sore in mouth K13.79 and Mor bid obesity E66.01 [facility] [address] [facility] [id number] [address] [place] [phone] Sep, Dental examination Z01.20 [facility] [address] [facility] [id number] [address] [place] [phone] Sep, Anxiety disorder, unspecifie d F41.[address] [id number], [place] [id number] Sep, Mouth ulcer K12.[address] [id number], [place] [id number] Sep, Morbid obesity E66.[id number] [place] [address] [id number] Sep, Allergic rhinitis, unspecified seasonali ty, unspecified trigger J30.9 and Shortness of breath R06.[address] [id number], [place] [id number] Sep, 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 [place] [id number] Aug, Mouth abscess K12.2 ; Mouth ulcer K12.1 ; Bloating R14.0 and Morbid obesity E66.[id number] [place] [id number] Aug, [address] [id number], [place] [id number] Aug, [facility] [address] [id number][place] [id number] Jul, Major depressive disorder, recurrent, mo derate F33.1 ; Abscess of arm, left L02.414 ; BMI 45.0-49.9, adult Z68.42 and Morbid obesity E66.01 [facility] [address] [facility] [address] [id number], [place] [id number] Jul, [facility] [address] [place] [address] AVE [id number], [place] [id number] Jul, [facility] [address] [place] [address] A[address] [id number], [place] [id number] Jun, Pain in right knee M25.561 and Other chr onic pain G89.29 [facility] [address] [place] [address] AVE [id number], [place] [id number] Jun, Benign essential hypertension I10 ; BMI 45.0-49.9, adult Z68.42 ; Morbid obesity E66.01 ; Vitamin D deficiency E55.9 ; Insomnia G47.00 ; 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 ; Edema R60.9 ; Recurrent major depressive disorder, in partial remission F33.41 ; Chronic fatigue R53.82 ; Acute pain of right knee M25.561 ; Metabolic syndrome E88.81 and Irritable mood R45.4 [facility] [address] [place] [id number] [address] [place] [phone] Jun, [facility] [address] [id number], [place] [id number] Jun, Irritable mood R45.4 [facility] [address] [place] [id number] [address] [place] [phone] May, [facility] [address] [place] [id number] [address] [place] [phone] May, [facility] [id number] [place] [id number] 13 May, 2018 Recurrent major depressive d isorder, in partial remission F33.41 ; Mixed obsessional thoughts and acts F42.2 ; 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 and BMI 45.0-49.9, adult Z68.42 [facility] [address] [facility] [id number] [address] [place] [phone] Apr, [facility] [address] [facility] [id number] [address] [place] [id number] Apr, [facility] [address] [facility] [id number] [address] [place] [phone] Apr, [place] [address] [facility] [id number] [address] [place] [phone] Apr, [place] [address] [facility] [id number] [address] [place] [address] Mar, Mixed obsessional thoughts a nd acts F42.2 ; Recurrent major depressive disorder, in partial remission F33.41 ; DANIELA (generalized anxiety disorder) F41.1 and BMI 45.0-49.9, adult Z68.[address] [place] [id number] [place] [address] [id number] Mar, [place] [id number] [place] [address] [id number] Mar, BMI 45.0-49.9, adult Z68.42 ; Instabilit y of right knee joint M25.361 and Rash R21 [facility] [address] [facility] [id number] [address] [place] [address] Jan, Recurrent major depressive d isorder, in partial remission F33.41 ; Mixed obsessional thoughts and acts F42.2 and BMI 45.0-49.9, adult Z68.42 [facility] [address] [id number], [place] [id number] Jan, [facility] [id number] [place] [address] [id number] Jan, Benign essential hypertension I10 ; BMI 45.0-49.9, adult Z68.42 ; Metabolic syndrome E88.81 and Allergic rhinitis, unspecified seasonality, unspecified trigger J30.9 [facility] [address] [facility] [id number] [address] [place] [phone] Dec, DANIELA (generalized anxiety dis order) F41.1 and Depressive disorder, not elsewhere classified F32.9 [facility] [address] [id number], [place] [id number] Dec, Recurrent major depressive disorder, in partial remission F33.41 [facility] [address] [id number], [place] [id number] Dec, [facility] [address] [id number], [place] [id number] Nov, [facility] [address] [id number], [place] [id number] Nov, Recurrent major depressive disorder, in partial remission F33.41 [facility] [address] [facility] [id number] [address] [place] [phone] Nov, Recurrent major depressive d isorder, in partial remission F33.41 ; Mixed obsessional thoughts and acts F42.2 ; DANIELA (generalized anxiety disorder) F41.1 and BMI 45.0-49.9, adult Z68.42 [facility] [address] [id number], [place] [id number] Nov, [facility] [address] [id number] [place] [id number] Nov, Other conjunctivitis of both eyes H10.89 and Sciatica, right side M54.31 [facility] [address] [id number], [place] [id number] Nov, [facility] [address] [id number], [place] [id number] Nov, [facility] [address] [id number], [place] [id number] October, [facility] [address] [id number], [place] [id number] October, [facility] [address] [facility] [id number] [place] [address] October, BMI 45.0-49.9, adult Z68.42 ; Mixed obsessional thoughts and acts F42.2 ; Recurrent major depressive disorder, in partial remission F33.41 and DANIELA (generalized anxiety disorder) F41.1 [facility] [address] [id number], [place] [id number] October, Benign essential hypertension I10 ; Morb id obesity E66.01 and BMI 45.0-49.9, adult Z68.42 [facility] [address] [id number], [place] [id number] Sep, [facility] [address] [id number], [place] [id number] Sep, [facility] [address] [id number], [place] [id number] Sep, [facility] [address] [id number], [place] [id number] Sep, Hospital discharge follow-up Z09 ; Aller gic rhinitis, unspecified seasonality, unspecified trigger J30.9 and Shortness of breath R06.02 [facility] [address] [id number], [place] [id number] Sep, Recurrent major depressive disorder, in partial remission F33.41 [facility] [address] [id number], [place] [id number] Aug, Irritable mood R45.4 [facility] [address] [facility] [id number] [address] [place] [phone] Aug, [facility] [address] [id number], [place] [id number] Jul, Benign essential hypertension I10 ; Robert a R60.9 and Impacted cerumen of left ear H61.22 [facility] [address] [facility] [id number] [address] [place] [phone] 14 Jul, 2017 Major depression F32.9 ; Rec urrent major depressive disorder, in partial remission F33.41 and Anxiety F41.9 [facility] [address] [facility] [id number] [address] [place] [phone] Jun, Major depression F32.9 ; Rec urrent major depressive disorder, in partial remission F33.41 and Anxiety F41.9 [facility] [address] [id number], [place] [id number] Jun, Major depression F32.9 ; Morbid obesity E66.01 ; Irritable mood R45.4 ; Hand weakness R29.898 and Vitamin D deficiency E55.9 [facility] [address] [id number], [place] [id number] Jun, [facility] [address] [id number], [place] [id number] May, Major depression F32.9 [place] [address] [facility] [id number] [address] [place] [address] May, Major depression F32.9 [facility] [address] [id number], [place] [id number] May, BMI 50.0-59.9, adult Z68.43 ; Major depr ession F32.9 ; Anxiety F41.9 ; Hypertrophic toenail L60.2 and Pain of left great toe M79.675 [facility] [address] [id number], [place] [id number] May, Recurrent major depressive disorder, in partial remission F33.41 [facility] [address] [facility] [id number] [address] [place] [address] Apr, [facility] [address] [id number], [place] [id number] Apr, [facility] [address] [facility] [id number] [address] [place] [phone] 15 Apr, 2017 Major depression F32.9 [facility] [address] [id number], [place] [id number] Apr, Severe episode of recurrent major depres sive disorder, without psychotic features F33.2 ; Anxiety F41.9 and Insomnia G47.00 [facility] [address] [id number], [place] [id number] Apr, [facility] [address] [facility] [id number] [address] [place] [phone] Apr, [facility] [id number] [place] [address] [id number] Apr, [facility] [address] [id number], [place] [id number] Mar, [facility] [id number] [place] [address] [id number] Mar, Allergic conjunctivitis of both eyes H10 .13 [facility] [address] [facility] [id number] [address] [place] [address] Mar, Major depression F32.9 [facility] [address] [id number], [place] [id number] Mar, Metabolic syndrome E88.81 ; History of g astric bypass Z98.890 ; Benign essential hypertension I10 ; Allergic conjunctivitis of both eyes H10.13 and Morbid obesity E66.01 [facility] [address] [facility] [id number] [address] [place] [address] Mar, Major depression F32.9 [facility] [address] [id number], [place] [id number] Feb, [facility] [address] [facility] [id number] [address] [place] [address] Feb, Major depression F32.9 [facility] [address] [id number], [place] [id number] Feb, Subacute maxillary sinusitis J01.00 and Bronchitis J40 [facility] [address] [facility] [id number] [address] [place] [phone] Feb, Major depressive disorder, r ecurrent, moderate F33.[address] [facility] [address] [id number], [place] [id number] Jan, [facility] [address] [id number], [place] [id number] Jan, Acute non-recurrent maxillary sinusitis J01.00 and Skin tag L91.8 [facility] [place] [address] [facility] [address] [id number], [place] [id number] Jan, Cough R05 and Sinus congestion R09.[address] [facility] [id number] [place] [address] [id number] Jan, [facility] [place] [address] [facility] [address] [id number] [place] [address] [id number] Jan, Benign essential hypertension I10 ; Hist ory of gastric bypass Z98.890 and Nausea and vomiting in adult R11.2 [facility] [address] [facility] [id number] [address] [place] [address] Jan, Major depressive disorder, r ecurrent, moderate F33.1 [facility] [address] [facility] [id number] [address] [place] [address] Dec, Insomnia G47.00 ; Recurrent major depressive disorder, in partial remission F33.41 and Morbid obesity E66.01 [facility] [address] [id number], [place] [id number] Dec, [facility] [address] [id number], [place] [id number] Dec, Chronic bacterial conjunctivitis of left eye H10.[address] [facility] [address] [id number], [place] [id number] Nov, [facility] [address] [id number] [place] [address] [id number] Nov, Dental examination Z01.20 [facility] [address] [facility] [address] [id number], [place] [id number] Nov, Benign essential hypertension I10 ; Hist ory of gastric bypass Z98.890 and Nausea and vomiting in adult R11.2 [facility] [address] [facility] [id number] [address] [place] [phone] 13 Nov, 2016 Major depressive disorder, r ecurrent, moderate F33.1 ; Generalized anxiety disorder F41.1 and Insomnia due to other mental disorder F51.05 [place] [address] [facility] [id number] [address] [place] [address] Nov, Recurrent major depressive d isorder, in partial remission F33.41 ; Insomnia G47.00 and Morbid obesity E66.01 [facility] [address] [facility] [id number] [place] [id number] October, Abscess of left arm L02.414 [place] [address] [place] [id number] [address] [place] [address] October, Morbid obesity E66.01 ; Lida r depression F32.9 and Recurrent major depressive disorder, in partial remission F33.41 [place] [address] [facility] [address] [id number], [place] [id number] Sep, Benign essential hypertension I10 ; Morb id obesity E66.01 ; S/P gastric bypass Z98.84 ; Abscess L02.91 and Chronic bacterial conjunctivitis of left eye H10.[address] [id number], [place] [id number] Sep, Dental examination Z01.20 [place] [address] [facility] [id number] [address] [place] [address] Sep, Morbid obesity E66.01 ; Lida r depression F32.9 and Recurrent major depressive disorder, in partial remission F33.41 [place] [address] [facility] [id number] [address] [place] [address] Jul, [place] [address] [facility] [id number] [address] [place] [phone] 24 Jul, 2016 Major depressive disorder, r ecurrent, moderate F33.1 [place] [address] [facility] [id number] [address] [place] [address] Jul, Major depressive disorder, r ecurrent, moderate F33.1 and Generalized anxiety disorder F41.[address] [place] [id number] [place] [id number] Jul, Cough R05 [place] [address] [address] [facility] [id number] [address] [place] [id number] Jul, Morbid obesity E66.01 ; Lida r depression F32.9 and Recurrent major depressive disorder, in partial remission F33.[address] [place] [id number] [place] [id number] Jul, [place] [id number] [place] [id number] Jul, [place] [id number] [place] [id number] Jul, Gastroenteritis K52.9 and Cough R[id number] [place] [id number] Jun, Acute bacterial conjunctivitis of left e ye H10.32 [place] [id number] [place] [id number] Jun, [place] [address] [place] [id number] [address] [place] [address] Jun, Recurrent major depressive d isorder, in partial remission F33.41 [place] [address] [place] [id number] [address] [place] [address] May, Major depression F32.9 and M orbid obesity E66.01 [place] [address] [place] [id number] [address] [place] [address] May, [place] [address] [id number] [id number] May, Thrush B37.0 [place] [address] [facility] [id number] [address] [place] [phone] Apr, Major depressive disorder, r ecurrent, moderate F33.1 [place] [address] [facility] [id number] [address] [place] [address] Apr, Insomnia G47.00 ; Major depr ession F32.9 and Recurrent major depressive disorder, in partial remission F33.41 [place] [address] [facility] [id number] [address] [place] [address] Apr, [place] [address] [facility] [id number] [address] [place] [address] Apr, Major depression F32.9 and R ecurrent major depressive disorder, in partial remission F33.[address] [place] [id number] [place] [address] [id number] Mar, Benign essential hypertension I10 ; Morb id obesity E66.01 ; Impacted cerumen of both ears H61.23 ; Laceration of finger of right hand, initial encounter S61.219A and Encounter for immunization Z23 [facility] [address] [facility] [id number] [address] [place] [id number] 17 Mar, 2016 [place] [address] [facility] [id number] [address] [place] [address] Mar, [place] [address] [facility] [id number] [address] [place] [address] Mar, [place] [id number] [place] [address] [id number] Feb, Nausea R11.0 ; Blood in the stool K92.1 and Benign essential hypertension I10 [place] [address] [facility] [id number] [address] [place] [address] Feb, Major depression F32.9 and R ecurrent major depressive disorder, in partial remission F33.41 [facility] [address] [id number][place] [id number] Feb, [facility] [address] [id number][place] [id number] Feb, Recurrent major depressive disorder, in partial remission F33.[address] [facility] [address] [id number][place] [id number] Jan, [facility] [address] [id number][place] [id number] Jan, Benign essential hypertension I10 ; Robert a R60.9 and Hyperlipidemia, unspecified hyperlipidemia type E78.[address] [facility] [address] [id number][place] [id number] Jan, Recurrent major depressive disorder, in partial remission F33.41 [facility] [address] [id number] [facility] [id number] Jan, [facility] [address] [id number][place] [id number] Jan, [facility] [address] [id number][place] [id number] Jan, [facility] [address] [facility] [id number] [address] [place] [phone] Jan, [facility] [address] [facility] [id number] [address] [place] [phone] Dec, [facility] [address] [facility] [id number] [address] [place] [address] Nov, [facility] [address] [facility] [id number] [address] [place] [phone] Nov, Major depression F32.9 [facility] [address] [facility] [id number] [address] [place] [address] Nov, [facility] [address] [facility] [id number] [address] [place] [phone] Nov, [facility] [address] [facility] [id number] [address] [place] [address] Nov, Major depressive disorder, r ecurrent episode, mild F33.0 and Anxiety F41.[address] [id number][place] [id number] Nov, [id number] [place] [address] [id number] October, Left elbow pain M25.522 and Other season al allergic rhinitis J30.[id number] [place] [address] [id number] October, [place] [address] [facility] [id number] [address] [place] [address] October, Major depressive disorder, r ecurrent, moderate F33.1 [place] [address] [facility] [id number] [address] [place] [address] October, Major depression F32.9 [place] [address] [facility] [id number] [address] [place] [address] Sep, Newell or callus L84 and Onych omycosis B35.1 [place] [address] [facility] [id number] [address] [place] [address] Sep, Major depressive disorder, r ecurrent, moderate F33.1 [place] [address] [facility] [id number] [address] [place] [address] Sep, Major depression F32.9 [place] [address] [facility] [id number] [address] [place] [address] Sep, Moderate episode of recurren t major depressive disorder F33.[id number] [place] [address] [id number] Sep, Muscle strain T14.8 [facility] [address] [facility] [id number] [address] [place] [address] Aug, Major depression F32.9 [place] [address] [facility] [id number] [address] [place] [address] Aug, Major depression F32.9 [facility] [address] [place] [id number] [address] [place] [address] Jul, Morbid obesity E66.01 and Ma cora depression F32.9 [facility] [address] [facility] [id number] [address] [place] [address] Jul, Depression, major, recurrent , moderate F33.[id number] [place] [address] [id number] Jul, [facility] [address] [address] Jul, [facility] [address] [address] Jul, Major depression F32.9 and M orbid obesity E66.[id number] [place] [address] [id number] Jul, Type II diabetes mellitus E11.9 ; Callus of foot L84 ; Benign essential hypertension I10 and Renal insufficiency N28.9 [facility] [address] [id number] 09 Jul, 2015 Depression, major, recurrent , moderate F33.1 [facility] [address] [place] [id number] [address] [place] [address] Jul, Major depression F32.9 [facility] [address] [place] [id number] [address] [place] [address] Jul, [facility] [address] [address] Jun, Major depression F32.9 [facility] [address] [place] [id number] [address] [place] [phone] Jun, Major depressive disorder, r ecurrent, moderate F33.1 [facility] [address] [place] [id number] [address] [place] [address] 08 Jun, 2015 [facility] [address] [facility] [id number] [address] [place] [id number] 08 Jun, 2015 Major depressive disorder, r ecurrent, moderate F33.1 and Major depression F32.[address] [place] [id number] [place] [address] [id number] Jun, Type II diabetes mellitus E11.9 [facility] [address] [facility] [id number] [address] [place] [address] Jun, Depression, major, recurrent , moderate F33.1 [place] [address] [facility] [id number] [address] [place] [address] May, Major depressive disorder, r ecurrent, moderate F33.1 [place] [address] [place] [id number] [place] [address] May, [place] [id number] [place] [address] [id number] May, Edema R60.9 [place] [address] [facility] [id number] [address] [place] [address] May, Insomnia G47.00 and Major de pression F32.[address] [place] [id number] [place] [address] [id number] 15 May, 2015 Morbid obesity E66.01 ; Edema R60.9 ; Sh ortness of breath R06.02 ; Benign essential hypertension I10 and Renal insufficiency N28.[address] [place] [address] [id number] [place] [address] [id number] 14 May, 2015 Hyperlipemia 272.4 and Renal insufficien cy N28.9 [place] [address] [facility] [id number] [address] [place] [address] Apr, Major depression F32.9 [place] [address] [place] [id number] [place] [address] Apr, [place] [address] [facility] [id number] [address] [place] [address] Apr, Major depressive disorder, r ecurrent, moderate F33.1 [facility] [id number] [place] [address] [id number] Apr, Type II diabetes mellitus E11.9 ; Benign essential hypertension I10 ; Edema R60.9 and Renal insufficiency N28.9 [place] [address] [facility] [id number] [address] [place] [address] Mar, Major depressive disorder, r ecurrent, moderate F33.1 [place] [address] [facility] [id number] [address] [place] [address] Mar, [place] [address] [facility] [id number] [address] [place] [address] Mar, Major depression F32.9 [facility] [address] [facility] [address] [address] [id number] [place] [address] [id number] Mar, Morbid obesity E66.01 ; Benign essential hypertension I10 and Type II diabetes mellitus E11.9 [place] [address] [facility] [id number] [address] [place] [address] Feb, Major depressive disorder, r ecurrent, moderate F33.1 [place] [address] [facility] [id number] [address] [place] [address] Feb, Major depressive disorder, r ecurrent episode, in partial or unspecified remission 296.35 ; Anxiety state, unspecified 300.00 and Morbid obesity 278.01 [place] [address] [facility] [id number] [address] [place] [address] Feb, [facility] [id number] [place] [address] [id number] Feb, Vomiting 787.03 and Viral syndrome 079.9 9 [place] [address] [facility] [id number] [address] [place] [address] 15 Feb, 2015 Major depression, recurrent 296.30 ; Generalized anxiety disorder 300.02 and No condition on [place] II V71.09 [facility] [address] [facility] [id number] [id number] Feb, Skin tag 701.9 [facility] [address] [facility] [id number] [address] [place] [address] Feb, [facility] [address] [place] [id number] [address] [place] [address] Jan, Depression, major, recurrent , moderate 296.32 [facility] [address] [place] [address] AVE [id number] [place] [address] [id number] Jan, Nausea and vomiting 787.01 ; Rib pain on right side 786.50 and Fall on or from sidewalk curb E880.1 [facility] [address] [facility] [id number] [address] [place] [address] Jan, [facility] [address] [place] [id number] [address] [place] [address] Jan, Major depressive disorder, r ecurrent episode, in partial or unspecified remission 296.35 and Anxiety state, unspecified 300.[id number] [place] [address] [id number] Jan, [facility] [address] [facility] [id number] [address] [place] [address] Jan, Depression, major, recurrent , moderate 296.32 [facility] [address] [place] [id number] [address] [place] [address] Jan, Major depression, recurrent 296.30 ; No condition on [place] II V71.09 and No condition on axis III V71.09 [id number] [place] [address] [id number] Jan, Drug-induced nausea and vomiting 787.01 [facility] [address] [facility] [id number] [address] [place] [address] Jan, Depression, major, recurrent , moderate 296.32 [facility] [address] [place] [id number] [address] [place] [address] Dec, Depression, major, recurrent , moderate 296.32 [facility] [id number] [place] [address] [id number] Dec, Morbid obesity 278.01 ; Metabolic syndro me 277.7 ; Hyperlipemia 272.4 ; Benign essential hypertension 401.1 ; Dietary counseling V65.3 ; Exercise counseling V65.41 and Inflamed skin tag 701.[address] [address] Dec, Depression, major, recurrent , moderate 296.[address] [address] Dec, [address] [address] Dec, Major depression, recurrent 296.30 ; Anxiety, generalized 300.02 and No condition on [place] II V71.09 [place] [id number] [place] [address] Dec, Depression, major, recurrent , moderate 296.[address] [address] Dec, Major depressive disorder, r ecurrent episode, moderate 296.32 [place] [id number] [address] [place] [address] Dec, Depression, major, recurrent , moderate 296.32 [place] [id number] [address] [place] [address] Dec, Depression, major, recurrent , moderate 296.[address] [address] Dec, Depression, major, recurrent , moderate 296.32 [place] [id number] [place] [address] Dec, Depression, major, recurrent , moderate 296.32 [place] [id number] [address] [place] [id number] 17 Nov, 2014 Depression, major, recurrent , moderate 296.32 [facility] [address] [place] [id number] [place] [address] 16 Nov, 2014 Major depression 296.20 ; So cial phobia 300.23 and No condition on [place] II V71.09 [facility] [address] [place] [id number] [address] [place] [id number] 16 Nov, 2014 Depression, major, recurrent , moderate 296.32 [facility] [address] [place] [id number] [place] [address] 09 Nov, 2014 Major depressive disorder, r ecurrent episode, moderate 296.32 and Generalized anxiety disorder 300.02 [facility] [address] [place] [id number] [place] [address] 09 Nov, 2014 Depression, major, recurrent , moderate 296.32 [facility] [address] [address] 04 Nov, 2014 Depression, major, recurrent , moderate 296.32 [facility] [address] [address] October, Generalized anxiety disorder 300.02 ; No condition on [place] II V71.09 and Major depressive disorder, recurrent 296.30 [facility] [address] [place] [id number] [address] [place] [address] Sep, [facility] [address] [place] [id number] [address] [place] [id number] Sep, [facility] [address] [place] [id number] [address] [place] [address] Aug, [facility] [address] [address] Aug, [facility] [address] [place] [id number] [address] [place] [id number] Aug, [facility] [address] [place] [id number] [place] [address] 23 Aug, 2014 [facility] [address] [id number] [facility] [place] [address] 20 Aug, 2014 [facility] [address] [id number] [address] [place] [address], [place] [address] 20 Aug, 2014 [facility] [address] [id number] [address] [place] [address], [place] [address] 20 Aug, 2014 [facility] [address] [id number] [address] [place] [address], [place] [address] 20 Aug, 2014 [facility] [address] [id number] [address] [place] [address], [place] [address] Aug, [facility] [address] [id number] [address] [place] [address], [place] [address] Aug, [facility] [address] [id number] [address] [place] [address], [place] [address] Aug, [facility] [address] [id number] [address] [place] [address], [place] [address] Aug, [facility] [address] [id number] [address] [place] [address], [place] [address] Aug, [facility] [address] [id number] [address] [place] [address], [place] [address] Aug, [facility] [address] [id number] [address] [place] [address], [place] [address] Aug, [facility] [address] [id number] [address] [place] [address], [place] [address] Aug, [facility] [address] [id number] [address] [place] [address], [place] [address] Aug, [facility] [address] [id number] [address] [place] [address], [place] [address] Aug, [facility] [address] [id number] [address] [place] [address], [place] [address] 24 Jul, 2014 [facility] [address] [id number] [address] [place] [address], [place] [address] Jul, [facility] [address] [id number] [address] [place] [address], [place] [address] Jul, [facility] [address] [id number] [address] [place] [address], [place] [address] Jul, [facility] [address] [id number] [address] [place] [address], [place] [address] Jul, [facility] [address] [id number] [address] [place] [address], [place] [address] Jul, [facility] [address] [id number] [address] [place] [address], [place] [address] Jun, [facility] [address] [id number] [address] [place] [address], [place] [address] Jun, [facility] [address] [id number] [address] [place] [address], [place] [address] Jun, [facility] [address] [id number] [address] [place] [address], [place] [address] Jun, [facility] [address] [id number] [address] [place] [address], [place] [address] Jun, [facility] [address] [id number] [address] [place] [address] Jun, [facility] [address] [id number] [address] [place] [address] Jun, [facility] [address] [id number] [address] [place] [address] Jun, [facility] [address] [id number] [address] [place] [address], [place] [address] Jun, [facility] [address] [id number] [address] [place] [address] Jun, [facility] [address] [id number] [address] [place] [address] Jun, [facility] [address] [id number] [address] [place] [address], [place] [address] Jun, [facility] [address] [id number] [place] [id number] Jun, [facility] [address] [id number] [address] [place] [address], [place] [address] Jun, [facility] [address] [id number] [address] [place] [address], [place] [address] Jun, [facility] [address] [id number] [address] [place] [address], [place] [address] Jun, [facility] [address] [id number] [address] [place] [address] May, [facility] [address] [id number] [address] [place] [address], [place] [address] May, [facility] [address] [id number] [address] [place] [address], [place] [address] May, [facility] [address] [id number] [address] [place] [address], [place] [address] May, [facility] [address] [id number] [address] [place] [address], [place] [address] Apr, [facility] [address] [id number] [address] [place] [address] Apr, [facility] [address] [id number] [address] [place] [address] Apr, [facility] [address] [id number] [address] [place] [address], [place] [address] Apr, [facility] [address] [id number] [address] [place] [address] Apr, [facility] [address] [id number] [address] [place] [address], [place] [address] Apr, [facility] [address] [id number] [address] [place] [address], [place] [address] Apr, [facility] [address] [id number] [address] [place] [address], [place] [address] Apr, [facility] [address] [id number] [address] [place] [address], [place] [address] Apr, [facility] [address] [id number] [address] [place] [address], [place] [id number] Apr, [facility] [address] [id number] [address] [place] [address], [place] [id number] Apr, [facility] [address] [id number] [address] [place] [address], [place] [id number] Apr, [facility] [address] [id number] [address] [place] [address], [place] [id number] Apr, [facility] [address] [id number] [address] [place] [address], [place] [id number] Apr, [facility] [address] [id number] [address] [place] [address], [place] [address] Apr, [facility] [address] [id number] [address] [place] [address], [place] [id number] Apr, [facility] [address] [id number] [address] [place] [address], [place] [id number] Apr, [facility] [address] [id number] [address] [place] [address], [place] [id number] Apr, [facility] [address] [id number] [address] [place] [address], [place] [id number] Apr, [facility] [address] [id number] [address] [place] [address], [place] [address] Apr, [facility] [address] [id number] [address] [place] [address], [place] [id number] Mar, [facility] [address] [id number] [address] [place] [address], [place] [id number] Mar, [facility] [address] [id number] [address] [place] [address], [place] [id number] Mar, [facility] [address] [id number] [address] [place] [address], [place] [id number] Mar, [facility] [address] [id number] [address] [place] [address], [place] [id number] Mar, [facility] [address] [id number] [address] [place] [address], [place] [id number] Mar, [facility] [address] [id number] [address] [place] [address], [place] [id number] Mar, [facility] [address] [id number] [address] [place] [address], [place] [id number] Mar, [facility] [address] [id number] [address] [place] [address], [place] [address] Mar, [facility] [address] [id number] [address] [place] [address], [place] [address] Mar, [facility] [address] [id number] [address] [place] [address], [place] [address] Feb, [facility] [address] [id number] [address] [place] [address], [place] [address] Feb, [facility] [address] [id number] [address] [place] [address], [place] [address] Feb, [facility] [address] [id number] [address] [place] [address], [place] [address] Feb, [facility] [address] [id number] [address] [place] [address], [place] [address] Jan, [facility] [address] [id number] [address] [place] [address], [place] [address] Jan, [facility] [address] [id number] [address] [place] [address], [place] [address] Jan, [facility] [address] [id number] [address] [place] [address], [place] [address] Jan, [facility] [address] [id number] [address] [place] [address], [place] [address] Jan, [facility] [address] [id number] [address] [place] [address], [place] [address] Jan, [facility] [address] [id number] [address] [place] [address], [place] [address] Dec, [facility] [address] [id number] [address] [place] [address], [place] [address] Dec, [facility] [address] [id number] [address] [place] [address], [place] [address] Nov, [facility] [address] [id number] [address] [place] [address], [place] [address] Nov, [facility] [address] [id number] [address] [place] [address], [place] [address] Nov, [facility] [address] [id number] [address] [place] [address], [place] [address] Nov, [facility] [address] [id number] [address] [place] [address], [place] [address] Nov, [facility] [address] [id number] [address] [place] [address], [place] [address] Nov, [facility] [address] [id number] [address] [place] [address], [place] [address] Sep, [facility] [address] [id number] [address] [place] [address], [place] [address] Sep, [facility] [address] [id number] [address] [place] [address], [place] [address] Sep, [facility] [address] [id number] [address] [place] [address], [place] [address] Sep, [facility] [address] [id number] [address] [place] [address], [place] [address] Aug, [facility] [address] [id number] [address] [place] [address], [place] [address] Aug, [facility] [address] [id number] [address] [place] [address], [place] [address] Jul, [facility] [address] [id number] [address] [place] [address], [place] [address] Jul, [facility] [address] [id number] [address] [place] [address], [place] [address] Jun, [facility] [address] [id number] [address] [place] [address], [place] [address] Jun, [facility] [address] [id number] [address] [place] [address], [place] [address] Jun, [facility] [address] [id number] [address] [place] [address], [place] [address] Jun, [facility] [address] [id number] [address] [place] [address], [place] [address] May, [facility] [address] [id number] [address] [place] [address], [place] [address] 24 May, 2013 [facility] [address] [id number] [address] [place] [address], [place] [address] May, [facility] [address] [id number] [address] [place] [address], [place] [address] May, [facility] [address] [id number] [address] [place] [address], [place] [address] May, [facility] [address] [id number] [address] [place] [address], [place] [address] May, [facility] [address] [id number] [address] [place] [address], [place] [address] Apr, [facility] [address] [id number] [address] [place] [address], [place] [address] Apr, [facility] [address] [id number] [address] [place] [address], [place] [address] Apr, [facility] [address] [id number] [address] [place] [address], [place] [address] Apr, [facility] [address] [id number] [address] [place] [address], [place] [address] Mar, [facility] [address] [id number] [address] [place] [address], [place] [address] Mar, [facility] [address] [id number] [address] [place] [address], [place] [address] Mar, [facility] [address] [id number] [address] [place] [address], [place] [address] Mar, [facility] [address] [id number] [address] [place] [address], [place] [address] Feb, [facility] [address] [id number] [id number] Jan, [facility] [address] [id number] [address] [place] [address], [place] [address] Jan, [facility] [address] [id number] [address] [place] [address], [place] [address] Dec, [facility] [address] [id number] [address] [place] [address] Dec, [facility] [address] [id number] [address] [place] [address], [place] [address] Dec, [facility] [address] [id number] [place] [id number] Dec, [facility] [address] [id number] [address] [place] [address], [place] [address] Nov, [facility] [address] [id number] [address] [place] [address], [place] [address] 14 Nov, 2012 [facility] [address] [id number] [address] [place] [address], [place] [address] Nov, [facility] [address] [id number] [address] [address] Nov, [facility] [address] [facility] [id number] [address] [place] [address] Nov, [facility] [address] [facility] [id number] [address] [place] [id number] October, [facility] [address] [facility] [id number] [address] [place] [id number] October, [facility] [address] [facility] [id number] [address] [place] [id number] Aug, [facility] [address] [facility] [id number] [address] [place] [id number] 13 Nov, 2011 IMMUNIZATIONS No Known Immunizations SOCIAL HISTORY Never Assessed REASON FOR VISIT PLAN OF CARE VITAL SIGNS MEDICATIONS Unknown Medications RESULTS No Results PROCEDURES Procedure Date Ordered Result Body Site CARE COORDINATION Mar 06, 2014 INSTRUCTIONS MEDICATIONS ADMINISTERED No Known Medications [...] 03/2016 Hospitalization History gastric sleeve Hospitalization History [facility] ER Trouble with left shoulder blade 08/2017
--- OUTSIDE RECORDS SUMMARY | 2019-11-29 09:09 | XMS REPORT ---
Author Author Fredy Curt Doctor Organization [facility] Address Unknown Phone Unavailable Care Team Providers Care Crown Ceramist Name Role Phone Migration, Doctor Unavailable Unavailable PROBLEMS Type Condition ICD9-CM Code QJD02-WY Code Onset Dates Condition S tatus SNOMED Code Problem Insomnia G47.00 Active 894292378 Problem Hyperlipemia E78.5 Active 2643627 4 Problem Morbid obesity E66.01 Active 08780 6002 Problem Benign essential hypertension I10 Active 0777084 Problem Renal insufficiency N28.9 Active 235459193 Problem Edema R60.9 Active 808446407 Problem Severe episode of recurrent major depressive disorder, without psychotic features F33.2 Active 46173978 Problem Metabolic syndrome E88.81 Active 2 41805896 Problem DANIELA (generalized anxiety disorder) F41.1 Active 94904614 Problem BMI 45.0-49.9, adult Z68.42 Active 496271075 Problem Sciatica, right side M54.31 Active [id number] Problem Hammer toe of second toe of right foot M20.41 Active 589651936 Problem Mixed obsessional thoughts and acts F42.2 Active 97297160 Problem Hammer toe of right foot M20.41 Activ e 154785814 Problem Vitamin D deficiency E55.9 Active 31339986 Problem Chronic fatigue R53.82 Active 8422 9001 Problem Other chronic pain G89.29 Active 8 1947531 Problem Borderline personality disorder F60.3 Active 66380291 Problem Callous ulcer, limited to breakdown of skin L98.49 1 Active ALLERGIES No Information ENCOUNTERS Encounter Location Date Diagnosis [address] [id number] [place] [id number] Jun, [facility] [address] [facility] [id number] [address] [place] [address] Feb, [facility] [address] [facility] [id number] [address] [place] [address] Jan, [address] [id number], [place] [id number] 15 Jan, 2019 Callus of heel L84 ; Fissure in skin R23 .4 and Hammer toe of second toe of right foot M20.41 [facility] [address] [id number], [place] [id number] Jan, [facility] [address] [place] [id number] [address] [place] [address] Jan, [facility] [address] [place] [id number] [address] [place] [address] Jan, [facility] [address] [place] [id number] [place] [address] Jan, Severe episode of recurrent major depressive disorder, without psychotic features F33.2 ; DANIELA (generalized anxiety disorder) F41.1 ; Mixed obsessional thoughts and acts F42.2 and Borderline personality disorder F60.3 [place] [address] [place] [id number] [address] [place] [address] Jan, [facility] [address] [place] [address] AVE [id number], [place] [id number] Jan, Benign essential hypertension I10 [facility] Bender[address] [place] [address] AVE [id number], [place] [id number] Dec, Callous ulcer, limited to breakdown of s kin L98.491 [address]66.01 [facility] [address] [place] [id number] [address] [place] [address] Dec, [facility] [address] [place] [id number] [address] [place] [address] Dec, [facility] [address] [place] [id number] [address] [place] [address] Dec, [facility] [address] [facility] [id number] [address] [place] [address] Dec, [facility] [address] [place] [id number] [address] [place] [address] Dec, Severe episode of recurrent major depressive disorder, without psychotic features F33.2 [facility] [address] [facility] [id number] [address] [place] [address] Dec, DANIELA (generalized anxiety dis order) F41.1 ; Severe episode of recurrent major depressive disorder, without psychotic features F33.2 ; Mixed obsessional thoughts and acts F42.2 and 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 [facility] [address] [id number], [place] [id number] Dec, Morbid obesity E66.01 [facility] [address] [facility] [id number] [address] [place] [address] Dec, [facility] [address] [facility] [id number] [address] [place] [address] Dec, [address] [address] Nov, [facility] [address] [facility] [address] [id number], [place] [id number] Nov, [facility] [address] [facility] [id number] [address] [place] [address] Nov, [facility] [address] [facility] [id number] [address] [place] [address] Nov, [facility] [address] [facility] [id number] [address] [place] [address] Nov, DANIELA (generalized anxiety dis order) F41.1 ; Severe episode of recurrent major depressive disorder, without psychotic features F33.2 ; Mixed obsessional thoughts and acts F42.2 and 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 [facility] [address] [facility] [address] [id number], [place] [id number] Nov, Morbid obesity E66.01 [facility] [address] [facility] [id number] [address] [place] [address] Nov, [facility] [address] [facility] [id number] [address] [place] [address] Nov, DANIELA (generalized anxiety dis order) F41.1 ; Mixed obsessional thoughts and acts F42.2 ; Severe episode of recurrent major depressive disorder, without psychotic features F33.2 and 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 [facility] [address] [id number], [place] [id number] October, Morbid obesity E66.01 [facility] [address] [place] [address] AVE [id number], [place] [id number] October, Benign essential hypertension I10 and Mo rbid obesity E66.01 [facility] [address] [place] [address] AVE [id number], [place] [id number] October, [facility] [address] [facility] [id number] [address] [place] [address] October, Severe episode of recurrent major depressive disorder, without psychotic features F33.2 [facility] [address] [place] [address] AVE [id number], [place] [id number] October, Morbid obesity E66.01 [facility] [address] [place] [address] AVE [id number], [place] [id number] October, [facility] [address] [facility] [id number] [address] [place] [address] October, Severe episode of recurrent major depressive disorder, without psychotic features F33.2 ; DANIELA (generalized anxiety disorder) F41.1 ; Mixed obsessional thoughts and acts F42.2 and 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 [facility] [address] [id number], [place] [id number] October, Morbid obesity E66.01 [facility] [address] [facility] [id number] [address] [place] [address] [id number] Sep, Dental examination Z01.20 [facility] [address] [place] [address] AVE [id number], [place] [id number] Sep, [facility] [address] [facility] [id number] [address] [place] [address] Sep, Sore in mouth K13.79 and Mor bid obesity E66.01 [facility] [address] [facility] [id number] 100[place] [address] Sep, Dental examination Z01.20 [facility] [address] [facility] [id number] [address] [place] [address] Sep, Anxiety disorder, unspecifie d F41.[address] [place] [address] [id number], [place] [id number] Sep, Mouth ulcer K12.[address] [id number], [place] [id number] Sep, Morbid obesity E66.[id number] [place] [address] [id number] Sep, Allergic rhinitis, unspecified seasonali ty, unspecified trigger J30.9 and Shortness of breath R06.[address] [place] [address] [id number], [place] [id number] Sep, 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 [id number], [place] [id number] Aug, Mouth abscess K12.2 ; Mouth ulcer K12.1 ; Bloating R14.0 and Morbid obesity E66.01 [facility] [address] [id number], [place] [id number] Aug, [facility] [address] [place] [address] [id number], [place] [id number] Aug, [facility] [address] [id number], [place] [id number] Jul, Major depressive disorder, recurrent, mo derate F33.1 ; Abscess of arm, left L02.414 ; BMI 45.0-49.9, adult Z68.42 and Morbid obesity E66.01 [facility] [address] [address] [address] [id number], [place] [id number] Jul, [facility] [address] [address] [id number], [place] [id number] Jul, [facility] [address] [id number], [place] [id number] Jun, Pain in right knee M25.561 and Other chr onic pain G89.29 [facility] [id number], [place] [id number] Jun, Benign essential hypertension I10 ; BMI 45.0-49.9, adult Z68.42 ; Morbid obesity E66.01 ; Vitamin D deficiency E55.9 ; Insomnia G47.00 ; 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 ; Edema R60.9 ; Recurrent major depressive disorder, in partial remission F33.41 ; Chronic fatigue R53.82 ; Acute pain of right knee M25.561 ; Metabolic syndrome E88.81 and Irritable mood R45.4 [facility] [address] [place] [id number] [address] [place] [address] Jun, [facility] [id number], [place] [id number] Jun, Irritable mood R45.4 [facility] [address] [facility] [id number] [address] [place] [address] May, [facility] [address] [place] [id number] [address] [place] [id number] 24 May, 2018 [facility] [address] [place] [id number] [address] [place] [address] May, Recurrent major depressive d isorder, in partial remission F33.41 ; Mixed obsessional thoughts and acts F42.2 ; 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 and BMI 45.0-49.9, adult Z68.42 [facility] [address] [facility] [id number] [address] [place] [address] Apr, [facility] [address] [facility] [id number] [address] [place] [address] 16 Apr, 2018 [facility] [address] [place] [id number] [address] [place] [address] Apr, [facility] [address] [facility] [id number] [address] [place] [address] Apr, [place] [address] [place] [id number] [place] [address] Mar, Mixed obsessional thoughts a nd acts F42.2 ; Recurrent major depressive disorder, in partial remission F33.41 ; DANIELA (generalized anxiety disorder) F41.1 and BMI 45.0-49.9, adult Z68.[address] [place] [address] [id number], [place] [id number] Mar, [facility] [address] [id number] [place] [address] [id number] Mar, BMI 45.0-49.9, adult Z68.42 ; Instabilit y of right knee joint M25.361 and Rash R21 [place] [address] [place] [id number] [address] [place] [address] Jan, Recurrent major depressive d isorder, in partial remission F33.41 ; Mixed obsessional thoughts and acts F42.2 and BMI 45.0-49.9, adult Z68.[address] [place] [id number] [place] [address] [id number] Jan, [facility] [id number], [place] [id number] Jan, Benign essential hypertension I10 ; BMI 45.0-49.9, adult Z68.42 ; Metabolic syndrome E88.81 and Allergic rhinitis, unspecified seasonality, unspecified trigger J30.9 [place] [address] [facility] [id number] [address] [place] [address] Dec, DANIELA (generalized anxiety dis order) F41.1 and Depressive disorder, not elsewhere classified F32.9 [facility] [address] [id number], [place] [id number] Dec, Recurrent major depressive disorder, in partial remission F33.41 [facility] [address] [id number], [place] [id number] Dec, [facility] [address] [id number], [place] [id number] Nov, [facility] [address] [address] [id number], [place] [id number] Nov, Recurrent major depressive disorder, in partial remission F33.41 [facility] [address] [facility] [id number] [address] [place] [address] Nov, Recurrent major depressive d isorder, in partial remission F33.41 ; Mixed obsessional thoughts and acts F42.2 ; DANIELA (generalized anxiety disorder) F41.1 and BMI 45.0-49.9, adult Z68.42 [facility] [address] [id number], [place] [id number] Nov, [facility] [address] [id number], [place] [id number] Nov, Other conjunctivitis of both eyes H10.89 and Sciatica, right side M54.31 [facility] [address] [id number], [place] [id number] Nov, [facility] [address] [id number], [place] [id number] Nov, [facility] [address] [id number], [place] [id number] October, [facility] [address] [id number], [place] [id number] October, [facility] [address] [facility] [id number] [address] [place] [address] October, BMI 45.0-49.9, adult Z68.42 ; Mixed obsessional thoughts and acts F42.2 ; Recurrent major depressive disorder, in partial remission F33.41 and DANIELA (generalized anxiety disorder) F41.1 [facility] [address] [id number], [place] [id number] October, Benign essential hypertension I10 ; Morb id obesity E66.01 and BMI 45.0-49.9, adult Z68.42 [facility] [address] [facility] [address] [id number], [place] [id number] Sep, [facility] [address] [id number], [place] [id number] Sep, [facility] [address] [place] [address] AVE [id number], [place] [id number] Sep, [facility] [id number], [place] [id number] Sep, Hospital discharge follow-up Z09 ; Aller gic rhinitis, unspecified seasonality, unspecified trigger J30.9 and Shortness of breath R06.02 [facility] [address] [place] [address] AV [id number], [place] 590891869 Sep, Recurrent major depressive disorder, in partial remission F33.41 [facility] [id number], [place] [id number] Aug, Irritable mood R45.4 [place] [address] [place] [id number] [place] [address] Aug, [facility] [id number] [place] [address] [id number] Jul, Benign essential hypertension I10 ; Robert a R60.9 and Impacted cerumen of left ear H61.22 [place] [address] [place] [address] Jul, Major depression F32.9 ; Rec urrent major depressive disorder, in partial remission F33.41 and Anxiety F41.9 [place] [address] [place] [id number] [place] [address] Jun, Major depression F32.9 ; Rec urrent major depressive disorder, in partial remission F33.41 and Anxiety F41.9 [facility] [id number], [place] 126062773 Jun, Major depression F32.9 ; Morbid obesity E66.01 ; Irritable mood R45.4 ; Hand weakness R29.898 and Vitamin D deficiency E55.9 [facility] [address] [id number], [place] [id number] Jun, [facility] [id number] [place] [address] [id number] May, Major depression F32.9 [place] [address] [facility] [id number] [address] [place] [address] May, Major depression F32.9 [facility] [id number] [place] [address] [id number] May, BMI 50.0-59.9, adult Z68.43 ; Major depr ession F32.9 ; Anxiety F41.9 ; Hypertrophic toenail L60.2 and Pain of left great toe M79.[address] [facility] [id number] [place] [address] [id number] May, Recurrent major depressive disorder, in partial remission F33.41 [place] [address] [facility] [id number] [address] [place] [address] Apr, [facility] [address] [id number], [place] [id number] Apr, [place] [address] [facility] [id number] [address] [place] [address] Apr, Major depression F32.9 [facility] [address] [id number], [place] [id number] Apr, Severe episode of recurrent major depres sive disorder, without psychotic features F33.2 ; Anxiety F41.9 and Insomnia G47.00 [facility] [address] [id number], [place] [id number] Apr, [place] [address] [facility] [id number] [address] [place] [address] Apr, [facility] [address] [id number], [place] [id number] Apr, [facility] [address] [id number], [place] [id number] Mar, [facility] [address] [id number], [place] [id number] Mar, Allergic conjunctivitis of both eyes H10 .13 [place] [address] [facility] [id number] [address] [place] [address] Mar, Major depression F32.9 [facility] [address] [facility] [address] [id number], [place] [id number] Mar, Metabolic syndrome E88.81 ; History of g astric bypass Z98.890 ; Benign essential hypertension I10 ; Allergic conjunctivitis of both eyes H10.13 and Morbid obesity E66.01 [place] [address] [place] [address] Mar, Major depression F32.9 [place] [address] [facility] [address] [id number], [place] [id number] Feb, [place] [address] [place] [id number] [place] [address] Feb, Major depression F32.9 [place] [address] [facility] [address] [id number], [place] [id number] Feb, Subacute maxillary sinusitis J01.00 and Bronchitis J40 [place] [address] [facility] [id number] [address] [place] [address] Feb, Major depressive disorder, r ecurrent, moderate F33.1 [facility] [address] [facility] [address] [id number], [place] [id number] Jan, [facility] [address] [id number], [place] [id number] Jan, Acute non-recurrent maxillary sinusitis J01.00 and Skin tag L91.8 [facility] [address] [id number], [place] [id number] Jan, Cough R05 and Sinus congestion R09.81 [facility] [id number], [place] [id number] Jan, [facility] [id number], [place] [id number] Jan, Benign essential hypertension I10 ; Hist ory of gastric bypass Z98.890 and Nausea and vomiting in adult R11.2 [place] [address] [place] [id number] [place] [address] 04 Jan, 2017 Major depressive disorder, r ecurrent, moderate F33.1 [place] [address] [address] 12 Dec, 2016 Insomnia G47.00 ; Recurrent major depressive disorder, in partial remission F33.41 and Morbid obesity E66.01 [facility] [id number], [place] [id number] Dec, [facility] [id number] [place] [address] [id number] Dec, Chronic bacterial conjunctivitis of left eye H10.402 [facility] [id number] [place] [address] [id number] Nov, [facility] [id number] [place] [address] [id number] Nov, Dental examination Z01.[address] [id number] [place] [address] [id number] Nov, Benign essential hypertension I10 ; Hist ory of gastric bypass Z98.890 and Nausea and vomiting in adult R11.2 [place] [address] [place] [id number] [place] [address] 13 Nov, 2016 Major depressive disorder, r ecurrent, moderate F33.1 ; Generalized anxiety disorder F41.1 and Insomnia due to other mental disorder F51.05 [place] [address] [place] [id number] [place] [address] Nov, Recurrent major depressive d isorder, in partial remission F33.41 ; Insomnia G47.00 and Morbid obesity E66.01 [facility] [address] [id number] Kiesha ESCOBEDO S [id number] October, Abscess of left arm L02.414 [facility] [address] [facility] [id number] [address] [place] [id number] October, Morbid obesity E66.01 ; Lida r depression F32.9 and Recurrent major depressive disorder, in partial remission F33.[address] [id number] [id number] Sep, Benign essential hypertension I10 ; Morb id obesity E66.01 ; S/P gastric bypass Z98.84 ; Abscess L02.91 and Chronic bacterial conjunctivitis of left eye H10.[address] [id number] [place] [id number] Sep, Dental examination Z01.20 [place] [address] [address] [place] [id number] [address] [place] [id number] Sep, Morbid obesity E66.01 ; Lida r depression F32.9 and Recurrent major depressive disorder, in partial remission F33.41 [place] [address] [place] [id number] Jul, [place] [address] [place] [id number] Jul, Major depressive disorder, r ecurrent, moderate F33.1 [place] [address] [facility] [id number] [address] [place] [id number] Jul, Major depressive disorder, r ecurrent, moderate F33.1 and Generalized anxiety disorder F41.[address] [id number] [id number] Jul, Cough R05 [place] [address] [place] [id number] [address] [place] [id number] Jul, Morbid obesity E66.01 ; Lida r depression F32.9 and Recurrent major depressive disorder, in partial remission F33.[address] [facility] [address] [id number] [id number] Jul, [facility] [address] [id number][place] [id number] Jul, [place] [id number] [place] [id number] Jul, Gastroenteritis K52.9 and Cough R05 [place] [address] [facility] [id number] [place] [id number] Jun, Acute bacterial conjunctivitis of left e ye H10.32 [facility] [address] [facility] [id number] [address] [place] [address] Jun, [place] [address] [facility] [id number] [address] [place] [address] Jun, Recurrent major depressive d isorder, in partial remission F33.41 [place] [address] [facility] [id number] [address] [place] [address] May, Major depression F32.9 and M orbid obesity E66.01 [place] [address] [facility] [id number] [address] [place] [address] May, [place] [id number] [facility] [address] [id number] [place] [address] [id number] May, Thrush B37.0 [place] [address] [facility] [id number] [address] [place] [address] Apr, Major depressive disorder, r ecurrent, moderate F33.1 [place] [address] [facility] [id number] [address] [place] [address] Apr, Insomnia G47.00 ; Major depr ession F32.9 and Recurrent major depressive disorder, in partial remission F33.41 [facility] [address] [place] [id number] [address] [place] [address] Apr, [facility] [address] [facility] [id number] [address] [place] [address] Apr, Major depression F32.9 and R ecurrent major depressive disorder, in partial remission F33.[address] [facility] [address] [id number][place] [id number] Mar, Benign essential hypertension I10 ; Morb id obesity E66.01 ; Impacted cerumen of both ears H61.23 ; Laceration of finger of right hand, initial encounter S61.219A and Encounter for immunization Z23 [facility] [address] [facility] [id number] [address] [place] [address] [address] Mar, [address] [facility] [address] [facility] [id number] [address] [place] [address] Mar, [facility] [address] [facility] [id number] [address] [place] [address] Mar, [place] [address] [id number][place] [id number] Feb, Nausea R11.0 ; Blood in the stool K92.1 and Benign essential hypertension I10 [facility] [address] [facility] [id number] [address] [place] [address] Feb, Major depression F32.9 and R ecurrent major depressive disorder, in partial remission F33.41 [facility] [address] [id number], [place] [id number] Feb, [facility] [address] [id number], [place] [id number] Feb, Recurrent major depressive disorder, in partial remission F33.41 [facility] [address] [id number], [place] [id number] Jan, [facility] [address] [id number], [place] [id number] Jan, Benign essential hypertension I10 ; Robert a R60.9 and Hyperlipidemia, unspecified hyperlipidemia type E78.5 [facility] [address] [id number], [place] [id number] Jan, Recurrent major depressive disorder, in partial remission F33.41 [facility] [address] [id number] Kiesha ESCOBEDO S [id number] Jan, [facility] [address] [id number][place] [id number] Jan, [facility] [address] [id number][place] [id number] Jan, [facility] [address] [facility] [id number] [address] [place] [address] Jan, [facility] [address] [facility] [id number] [address] [place] [address] Dec, [facility] [address] [facility] [id number] [address] [place] [address] Nov, [facility] [address] [facility] [id number] [address] [place] [address] Nov, Major depression F32.9 [facility] [address] [facility] [id number] [address] [place] [address] Nov, [facility] [address] [facility] [id number] [address] [place] [address] Nov, [facility] [address] [facility] [id number] [address] [place] [address] Nov, Major depressive disorder, r ecurrent episode, mild F33.0 and Anxiety F41.9 [facility] [address] [id number], [place] [id number] Nov, [facility] [address] [id number], [place] [id number] October, Left elbow pain M25.522 and Other season al allergic rhinitis J30.2 [facility] [address] [id number], [place] [id number] October, [place] [address] [facility] [id number] [address] [place] [address] October, Major depressive disorder, r ecurrent, moderate F33.1 [place] [address] [facility] [id number] [address] [place] [address] October, Major depression F32.9 [place] [address] [facility] [id number] [address] [place] [address] Sep, [place] or callus L84 and Onych omycosis B35.1 [place] [address] [facility] [id number] [address] [place] [address] Sep, Major depressive disorder, r ecurrent, moderate F33.1 [place] [address] [facility] [id number] [address] [place] [address] Sep, Major depression F32.9 [place] [address] [place] [id number] [address] [place] [address] Sep, Moderate episode of recurren t major depressive disorder F33.1 [facility] [address] [id number], [place] [id number] Sep, Muscle strain T14.8 [place] [address] [facility] [id number] [address] [place] [address] Aug, Major depression F32.9 [place] [address] [place] [id number] [address] [place] [address] Aug, Major depression F32.9 [place] [address] [facility] [id number] [address] [place] [address] Jul, Morbid obesity E66.01 and Ma cora depression F32.9 [place] [address] [facility] [id number] [address] [place] [address] Jul, Depression, major, recurrent , moderate F33.1 [facility] [address] [id number], [place] [id number] Jul, [place] [address] [address] Jul, [place] [address] [address] 16 Jul, 2015 Major depression F32.9 and M orbid obesity E66.[address] [id number], [place] [id number] Jul, Type II diabetes mellitus E11.9 ; Callus of foot L84 ; Benign essential hypertension I10 and Renal insufficiency N28.9 [place] [address] [address] 09 Jul, 2015 Depression, major, recurrent , moderate F33.1 [place] [address] [address] 05 Jul, 2015 Major depression F32.9 [place] [address] [address] Jul, [place] [address] [address] Jun, Major depression F32.9 [place] [address] [address] Jun, Major depressive disorder, r ecurrent, moderate F33.1 [place] [address] [address] Jun, [place] [address] [address] Jun, Major depressive disorder, r ecurrent, moderate F33.1 and Major depression F32.9 [facility] [address] [place] [address] AVE [id number], [place] [id number] Jun, Type II diabetes mellitus E11.9 [place] [address] [place] [id number] [address] [place] [address] Jun, Depression, major, recurrent , moderate F33.1 [place] [address] [facility] [id number] [address] [place] [address] May, Major depressive disorder, r ecurrent, moderate F33.1 [place] [address] [facility] [id number] [address] [place] [address] May, [place] [id number] [place] [address] [id number] May, Edema R60.9 [place] [address] [facility] [id number] [address] [place] [address] May, Insomnia G47.00 and Major de pression F32.[id number] [place] [address] [id number] 15 May, 2015 Morbid obesity E66.01 ; Edema R60.9 ; Sh ortness of breath R06.02 ; Benign essential hypertension I10 and Renal insufficiency N28.[address] [id number] [place] [address] [id number] May, Hyperlipemia 272.4 and Renal insufficien cy N28.9 [place] [address] [facility] [id number] [address] [place] [address] Apr, Major depression F32.9 [place] [address] [facility] [id number] [address] [place] [address] Apr, [place] [address] [facility] [id number] [address] [place] [address] Apr, Major depressive disorder, r ecurrent, moderate F33.[id number] [place] [address] [id number] Apr, Type II diabetes mellitus E11.9 ; Benign essential hypertension I10 ; Edema R60.9 and Renal insufficiency N28.9 [place] [address] [facility] [id number] [address] [place] [address] Mar, Major depressive disorder, r ecurrent, moderate F33.1 [place] [address] [facility] [id number] [address] [place] [address] Mar, [place] [address] [facility] [id number] [address] [place] [address] Mar, Major depression F32.9 [place] [address] [facility] [address] [id number], [place] [id number] Mar, Morbid obesity E66.01 ; Benign essential hypertension I10 and Type II diabetes mellitus E11.9 [place] [address] [facility] [id number] [address] [place] [address] Feb, Major depressive disorder, r ecurrent, moderate F33.1 [place] [id number] [address] [place] [address] Feb, Major depressive disorder, r ecurrent episode, in partial or unspecified remission 296.35 ; Anxiety state, unspecified 300.00 and Morbid obesity 278.01 [place] [address] [place] [id number] [address] [place] [address] Feb, [address] [id number] [place] [address] [id number] Feb, Vomiting 787.03 and Viral syndrome 079.[address] [id number] [address] [place] [address] Feb, Major depression, recurrent 296.30 ; Generalized anxiety disorder 300.02 and No condition on Jackson II V71.[address] [id number], [place] [id number] Feb, Skin tag 701.9 [place] [address] [facility] [id number] [address] [place] [address] Feb, [address] [id number] [address] [place] [address] Jan, Depression, major, recurrent , moderate 296.[address] [id number], [place] [id number] Jan, Nausea and vomiting 787.01 ; Rib pain on right side 786.50 and Fall on or from sidewalk curb E880.1 [facility] [address] [facility] [id number] [address] [place] [address] Jan, [facility] [address] [place] [id number] [address] [place] [address] Jan, Major depressive disorder, r ecurrent episode, in partial or unspecified remission 296.35 and Anxiety state, unspecified 300.[address] [id number], [place] [id number] Jan, [facility] [address] [facility] [id number] [address] [place] [address] Jan, Depression, major, recurrent , moderate 296.32 [place] [address] [place] [id number] [address] [place] [address] Jan, Major depression, recurrent 296.30 ; No condition on Jackson II V71.09 and No condition on axis III V71.[address] [id number], [place] [id number] Jan, Drug-induced nausea and vomiting 787.01 [place] [id number] [address] [place] [address] Jan, Depression, major, recurrent , moderate 296.[address] [id number] [address] [place] [address] Dec, Depression, major, recurrent , moderate 296.32 [address] [id number], [place] [id number] Dec, Morbid obesity 278.01 ; Metabolic syndro me 277.7 ; Hyperlipemia 272.4 ; Benign essential hypertension 401.1 ; Dietary counseling V65.3 ; Exercise counseling V65.41 and Inflamed skin tag 701.[address] [id number] [address] [place] [address] Dec, Depression, major, recurrent , moderate 296.32 [place] [address] Dec, [facility] [address] [address] Dec, Major depression, recurrent 296.30 ; Anxiety, generalized 300.02 and No condition on Jackson II V71.09 [facility] [address] [address] Dec, Depression, major, recurrent , moderate 296.32 [place] [address] [address] Dec, Major depressive disorder, r ecurrent episode, moderate 296.32 [place] [address] [address] Dec, Depression, major, recurrent , moderate 296.32 [place] [address] [address] Dec, Depression, major, recurrent , moderate 296.32 [place] [address] [address] Dec, Depression, major, recurrent , moderate 296.32 [place] [address] [address] Dec, Depression, major, recurrent , moderate 296.32 [place] [address] [address] Nov, Depression, major, recurrent , moderate 296.32 [place] [address] [address] Nov, Major depression 296.20 ; So cial phobia 300.23 and No condition on Jackson II V71.09 [place] [address] [address] Nov, Depression, major, recurrent , moderate 296.32 [place] [address] [address] Nov, Major depressive disorder, r ecurrent episode, moderate 296.32 and Generalized anxiety disorder 300.02 [facility] [address] [id number] [address] [place] [address] Nov, Depression, major, recurrent , moderate 296.32 [facility] [address] [id number] [address] [place] [address] Nov, Depression, major, recurrent , moderate 296.32 [facility] [address] [id number] [address] [place] [address] October, Generalized anxiety disorder 300.02 ; No condition on Jackson II V71.09 and Major depressive disorder, recurrent 296.30 [facility] [address] [id number] [address] [place] [address] Sep, [facility] [address] [facility] [id number] [address] [place] [address] Sep, [facility] [address] [id number] [address] [place] [address] Aug, [facility] [address] [id number] [address] [place] [address] Aug, [facility] [address] [facility] [id number] [address] [place] [address] Aug, [facility] [address] [id number] [address] [place] [address] Aug, [facility] [address] [id number] [address] [place] [address] Aug, [facility] [address] [id number] [address] [place] [address] Aug, [facility] [address] [id number] [address] [place] [address] Aug, [facility] [address] [id number] [address] [place] [address] Aug, [facility] [address] [id number] [address] [place] [address] [place] [address] 13 Aug, 2014 [facility] [address] [id number] [address] [place] [address], [place] [address] 13 Aug, 2014 [facility] [place] [facility] [address] [id number] [address] [place] [address], [place] [address] 13 Aug, 2014 [facility] [place] [facility] [address] [id number] [address] [place] [address], [place] [address] 13 Aug, 2014 [facility] [place] [facility] [address] [id number] [address] [place] [address], [place] [address] 12 Aug, 2014 [facility] [place] [facility] [address] [id number] [address] [place] [address], [place] [address] Aug, [facility] [place] [facility] [address] [id number] [address] [place] [address], [place] [address] 10 Aug, 2014 [facility] [address] [id number] [address] [place] [address], [place] [address] 10 Aug, 2014 [facility] [place] [facility] [address] [id number] [address] [place] [address], [place] [address] Aug, [facility] [place] [facility] [address] [id number] [address] [place] [address], [place] [address] Aug, [facility] [place] [facility] [address] [id number] [address] [place] [address], [place] [address] Jul, 2014 [facility] [place] [facility] [address] [id number] [address] [place] [address], [place] [address] Jul, 2014 [facility] [place] [facility] [address] [id number] [address] [place] [address], [place] [address] 16 Jul, 2014 [facility] [place] [facility] [address] [id number] [address] [place] [address], [place] [address] Jul, 2014 [facility] [place] [facility] [address] [id number] [address] [place] [address], [place] [address] Jul, 2014 [facility] [place] [facility] [address] [id number] [address] [place] [address], [place] [address] Jul, [facility] [address] [id number] [address] [place] [address], [place] [address] Jun, [facility] [address] [id number] [address] [place] [address], [place] [address] Jun, [facility] [address] [id number] [address] [place] [address], [place] [address] Jun, [facility] [address] [id number] [address] [place] [address], [place] [address] Jun, [facility] [address] [id number] [address] [place] [address], [place] [address] Jun, [facility] [address] [id number] [address] [place] [address], [place] [address] Jun, [facility] [address] [id number] [address] [place] [address], [place] [address] Jun, [facility] [address] [id number] [address] [place] [address], [place] [address] Jun, [facility] [address] [id number] [address] [place] [address], [place] [address] Jun, [facility] [address] [id number] [address] [place] [address] Jun, [facility] [address] [id number] [address] [place] [address] Jun, [facility] [address] [id number] [address] [place] [address] Jun, [facility] [address] [id number] [place] [id number] Jun, [facility] [address] [id number] [address] [place] [address], [place] [address] Jun, [facility] [address] [id number] [address] [place] [address], [place] [address] Jun, [facility] [address] [id number] [address] [place] [address] Jun, [facility] [address] [id number] [address] [place] [address], [place] [address] May, [facility] [place] [facility] [address] [id number] [address] [place] [address], [place] [address] May, [facility] [place] [facility] [address] [id number] [address] [place] [address], [place] [address] May, [facility] [place] [facility] [address] [id number] [address] [place] [address], [place] [address] May, [facility] [place] [facility] [address] [id number] [address] [place] [address], [place] [address] Apr, [facility] [place] [facility] [address] [id number] [address] [place] [address], [place] [address] Apr, [facility] [place] [facility] [address] [id number] [address] [place] [address], [place] [address] Apr, [facility] [place] [facility] [address] [id number] [address] [place] [address], [place] [id number] Apr, [facility] [address] [id number] [address] [place] [id number] Apr, [facility] [address] [id number] [address] [place] [address], [place] [id number] Apr, [facility] [address] [id number] [address] [place] [id number] Apr, [facility] [address] [id number] [address] [place] [id number] Apr, [facility] [address] [id number] [address] [place] [address], [place] [id number] Apr, [facility] [address] [id number] [address] [place] [address], [place] [id number] Apr, [facility] [address] [id number] [address] [place] [id number] Apr, [facility] [address] [id number] [address] [place] [address], [place] [id number] Apr, [facility] [address] [id number] [address] [place] [address], [place] [id number] Apr, [facility] [address] [id number] [address] [place] [address], [place] [id number] Apr, [facility] [address] [id number] [address] [place] [address], [place] [id number] Apr, [facility] [address] [id number] [address] [place] [address], [place] [id number] Apr, [facility] [address] [id number] [address] [place] [address], [place] [id number] Apr, [facility] [address] [id number] [address] [place] [address], [place] [id number] Apr, [facility] [address] [id number] [address] [place] [address], [place] [id number] Apr, [facility] [address] [id number] [address] [place] [address], [place] [id number] Apr, [facility] [address] [id number] [address] [place] [address], [place] [id number] Mar, [facility] [address] [id number] [address] [place] [address], [place] [id number] Mar, [facility] [address] [id number] [address] [place] [address], [place] [id number] Mar, [facility] [address] [id number] [address] [place] [address], [place] [id number] Mar, [facility] [address] [id number] [address] [place] [address], [place] [id number] Mar, [facility] [address] [id number] [address] [place] [address], [place] [address] Mar, [facility] [address] [id number] [address] [place] [address], [place] [id number] Mar, [facility] [address] [id number] [address] [place] [address], [place] [id number] Mar, [facility] [address] [id number] [address] [place] [address], [place] [id number] Mar, [facility] [address] [id number] [address] [place] [address], [place] [id number] Mar, [facility] [address] [id number] [address] [place] [address], [place] [id number] Feb, [facility] [address] [id number] [address] [place] [address], [place] [id number] Feb, [facility] [address] [id number] 27 [place] [address], [place] [address] Feb, [facility] [address] [id number] [address] [place] [address], [place] [address] Feb, [facility] [address] [id number] [address] [place] [address], [place] [address] Jan, [facility] [address] [id number] [address] [place] [address], [place] [address] Jan, [facility] [address] [id number] [address] [place] [address], [place] [address] Jan, [facility] [address] [id number] [address] [place] [address], [place] [address] Jan, [facility] [address] [id number] [address] [place] [address], [place] [id number] Jan, [facility] [address] [id number] [address] [place] [address], [place] [address] Jan, [facility] [address] [id number] [address] [place] [address], [place] [address] Dec, [facility] [address] [id number] [address] [place] [address], [place] [id number] Dec, [facility] [address] [id number] [address] [place] [address], [place] [address] Nov, [facility] [address] [id number] [address] [place] [address], [place] [id number] Nov, [facility] [address] [id number] [address] [place] [address], [place] [address] Nov, [facility] [address] [id number] [address] [place] [address], [place] [address] Nov, [facility] [address] [id number] [address] [place] [address], [place] [address] Nov, [facility] [address] [id number] [address] [place] [address], [place] [address] Nov, [facility] [address] [id number] [address] [place] [address], [place] [address] Sep, [facility] [address] [id number] [address] [place] [address], [place] [address] Sep, [facility] [address] [id number] [address] [place] [address], [place] [address] Sep, [facility] [address] [id number] [address] [place] [address], [place] [id number] Sep, [facility] [address] [id number] [address] [place] [address], [place] [address] Aug, [facility] [address] [id number] [address] [place] [address], [place] [address] Aug, [facility] [address] [id number] [address] [place] [address], [place] [address] Jul, [facility] [address] [id number] [address] [place] [address], [place] [address] Jul, [facility] [address] [id number] [address] [place] [address], [place] [id number] Jun, [facility] [address] [id number] [address] [place] [address], [place] [address] Jun, [facility] [address] [id number] [address] [place] [address], [place] [id number] Jun, [facility] [address] [id number] [address] [place] [address], [place] [address] Jun, [facility] [address] [id number] [address] [place] [address], [place] [address] May, [facility] [address] [id number] [address] [place] [address], [place] [address] May, [facility] [address] [id number] [address] [place] [address], [place] [address] May, [facility] [address] [id number] [address] [place] [address], [place] [address] May, [facility] [address] [id number] [address] [place] [address], [place] [address] May, [facility] [address] [id number] [address] [place] [address], [place] [address] May, [facility] [address] [id number] [address] [place] [address], [place] [address] Apr, [facility] [address] [id number] [address] [place] [address], [place] [address] Apr, [facility] [address] [id number] [address] [place] [address], [place] [address] Apr, [facility] [address] [id number] [address] [place] [address], [place] [address] Apr, [facility] [address] [id number] [address] [place] [address], [place] [address] Mar, [facility] [address] [id number] [address] [place] [address], [place] [address] Mar, [facility] [address] [id number] [address] [place] [address], [place] [id number] 18 Mar, 2013 [facility] [address] [id number] [address] [place] [address], [place] [address] Mar, [facility] [address] [id number] [address] [place] [address], [place] [id number] Feb, [facility] [place] [address] [id number] [place] [id number] Jan, [facility] [address] [id number] [address] [place] [address], [place] [address] Jan, [facility] [address] [id number] [address] [place] [address], [place] [address] Dec, [facility] [address] [id number] [address] [place] [address], [place] [id number] Dec, [facility] [address] [id number] [address] [place] [address], [place] [address] Dec, [facility] [place] [address] [id number] [place] [id number] Dec, [facility] [address] [id number] [address] [place] [address], [place] [address] Nov, [facility] [address] [id number] [address] [place] [address], [place] [address] Nov, [facility] [address] [id number] [address] [place] [address], [place] [id number] Nov, [facility] [address] [id number] [address] [place] [address], [place] [address] Nov, [facility] [address] [id number] [address] [place] [address], [place] [address] Nov, [facility] [address] [id number] [address] [place] [address], [place] [address] October, [facility] [address] [id number] [address] [place] [address], [place] [address] October, [facility] [address] [id number] [address] [place] [address], [place] [id number] Aug, [facility] [address] [id number] [address] [place] [address], [place] [address] Nov, IMMUNIZATIONS No Known Immunizations SOCIAL HISTORY [...] 03/2016 Hospitalization History gastric sleeve Hospitalization History [facility] Trouble with left shoulder blade 08/2017
--- OUTSIDE RECORDS SUMMARY | 2019-11-29 09:09 | XMS REPORT ---
Author Author Curt Andino Organization [facility] Address [address] [place] [address] Care Team Providers Care Swatch Cutter Name Role Phone TOD Andino Unavailable PROBLEMS Type Condition ICD9-CM Code UJK36-PB Code Onset Dates Condition S tatus SNOMED Code Problem Insomnia G47.00 Active 804044291 Problem Hyperlipemia E78.5 Active 2979080 4 Problem Morbid obesity E66.01 Active 73117 6002 Problem Benign essential hypertension I10 Active 8074279 Problem Renal insufficiency N28.9 Active 688621906 Problem Edema R60.9 Active 549456461 Problem Severe episode of recurrent major depressive disorder, without psychotic features F33.2 Active 27459991 Problem Metabolic syndrome E88.81 Active 2 28441070 Problem DANIELA (generalized anxiety disorder) F41.1 Active 33392041 Problem BMI 45.0-49.9, adult Z68.42 Active 267359545 Problem Sciatica, right side M54.31 Active 865827206275764 Problem Hammer toe of second toe of right foot M20.41 Active 523111935 Problem Mixed obsessional thoughts and acts F42.2 Active 76085135 Problem Hammer toe of right foot M20.41 Activ e 612469337 Problem Vitamin D deficiency E55.9 Active 80041135 Problem Chronic fatigue R53.82 Active 8422 9001 Problem Other chronic pain G89.29 Active 8 3739634 Problem Borderline personality disorder F60.3 Active 50088298 Problem Callous ulcer, limited to breakdown of skin L98.49 1 Active ALLERGIES No Information ENCOUNTERS Encounter Location Date Diagnosis [facility] [address] [facility] [id number] [place] [id number] Jun, [facility] [address] [facility] [id number] [address] [address] Feb, [facility] [address] [facility] [id number] [address] [place] [address] Jan, [facility] [address] [facility] [id number] [address] [place] [address] Jan, [facility] [address] [facility] [id number] [address] [place] [address] Jan, [facility] [address] [place] [address] [id number] [place] [address] [id number] Jan, Callus of heel L84 ; Fissure in skin R23 .4 and Hammer toe of second toe of right foot M20.[address] [id number] [place] [address] [id number] Jan, [facility] [address] [facility] [id number] [address] [place] [address] Jan, [place] [address] [place] [id number] [address] [place] [address] Jan, [facility] [address] [place] [id number] [address] [place] [address] Jan, Severe episode of recurrent major depressive disorder, without psychotic features F33.2 ; DANIELA (generalized anxiety disorder) F41.1 ; Mixed obsessional thoughts and acts F42.2 and Borderline personality disorder F60.3 [place] [address] [place] [id number] [address] [place] [address] Jan, [facility] [id number] [place] [address] [id number] Jan, Benign essential hypertension I10 [address] [id number] [place] [address] [id number] Dec, Callous ulcer, limited to breakdown of s kin L98.491 and Morbid obesity E66.01 [facility] [address] [facility] [id number] [address] [place] [address] Dec, [facility] [address] [place] [id number] [address] [place] [address] Dec, [facility] [address] [id number] [address] [place] [address] Dec, [facility] [address] [facility] [id number] [address] [place] [address] Dec, [facility] [address] [facility] [id number] [address] [place] [address] Dec, Severe episode of recurrent major depressive disorder, without psychotic features F33.2 [facility] [address] [id number] [address] [place] [address] Dec, DANIELA (generalized anxiety dis order) F41.1 ; Severe episode of recurrent major depressive disorder, without psychotic features F33.2 ; Mixed obsessional thoughts and acts F42.2 and 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 [facility] [address] [address] [id number] [place] [id number] Dec, Morbid obesity E66.01 [facility] [address] [facility] [id number] [address] [place] [address] Dec, [facility] [address] [facility] [id number] [address] [place] [address] Dec, [address] [address] Nov, [facility] [address] [address] [id number] [place] [id number] Nov, [facility] [address] [facility] [id number] [address] [place] [address] Nov, [facility] [address] [facility] [id number] [address] [place] [address] Nov, [facility] [address] [facility] [id number] [address] [place] [address] Nov, DANIELA (generalized anxiety dis order) F41.1 ; Severe episode of recurrent major depressive disorder, without psychotic features F33.2 ; Mixed obsessional thoughts and acts F42.2 and 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 [facility] [address] [id number] [place] [id number] Nov, Morbid obesity E66.01 [facility] [address] [facility] [id number] [address] [place] [address] Nov, [facility] [address] [facility] [id number] [address] [place] [address] Nov, DANIELA (generalized anxiety dis order) F41.1 ; Mixed obsessional thoughts and acts F42.2 ; Severe episode of recurrent major depressive disorder, without psychotic features F33.2 and 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 [place] [address] [facility] [address] [id number] [place] [id number] October, Morbid obesity E66.01 [place] [place] [address] [facility] [address] [id number] [place] [id number] October, Benign essential hypertension I10 and Mo rbid obesity E66.[address] [id number] [place] [id number] October, [facility] [address] [facility] [id number] [address] [place] [address] October, Severe episode of recurrent major depressive disorder, without psychotic features F33.[address] [id number] [place] [id number] October, Morbid obesity E66.01 [place] [address] [facility] [address] [id number] [place] [id number] October, [facility] [address] [facility] [id number] [address] [place] [address] October, Severe episode of recurrent major depressive disorder, without psychotic features F33.2 ; DANIELA (generalized anxiety disorder) F41.1 ; Mixed obsessional thoughts and acts F42.2 and 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 [place] [address] [id number] [place] [id number] October, Morbid obesity E66.01 [facility] [address] [id number] [address] [place] [address] [id number] Sep, Dental examination Z01.20 [facility] [address] [id number] [place] [id number] Sep, [facility] [address] [facility] [id number] [address] [address] Sep, Sore in mouth K13.79 and Mor bid obesity E66.01 [facility] [address] [facility] [id number] [address] [address] Sep, Dental examination Z01.20 [facility] [address] [facility] [id number] [address] [place] [address] Sep, Anxiety disorder, unspecifie d F41.9 [facility] [place] [address] [id number] [place] 000072365 Sep, Mouth ulcer K12.1 [facility] [address] [id number] [place] [id number] Sep, Morbid obesity E66.01 [facility] [place] [place] [address] [id number] [place] [id number] Sep, Allergic rhinitis, unspecified seasonali ty, unspecified trigger J30.9 and Shortness of breath R06.02 [facility] [place] [address] [id number] [place] [id number] Sep, 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 [facility] [place] [address] [id number] [place] [id number] Aug, Mouth abscess K12.2 ; Mouth ulcer K12.1 ; Bloating R14.0 and Morbid obesity E66.01 [facility] [place] [place] [address] [id number] [place] [id number] Aug, [facility] [id number] [place] [id number] Aug, [facility] [id number] [place] [id number] Jul, Major depressive disorder, recurrent, mo derate F33.1 ; Abscess of arm, left L02.414 ; BMI 45.0-49.9, adult Z68.42 and Morbid obesity E66.01 [facility] [place] [employer] [place] [address] AVE [id number] [place] [id number] Jul, [facility] [address] [id number] [place] [id number] Jul, [facility]OWN[facility]E[address] [id number] [place] [id number] Jun, Pain in right knee M25.561 and Other chr onic pain G89.29 [facility] [address] [id number] [place] [id number] Jun, Benign essential hypertension I10 ; BMI 45.0-49.9, adult Z68.42 ; Morbid obesity E66.01 ; Vitamin D deficiency E55.9 ; Insomnia G47.00 ; 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 ; Edema R60.9 ; Recurrent major depressive disorder, in partial remission F33.41 ; Chronic fatigue R53.82 ; Acute pain of right knee M25.561 ; Metabolic syndrome E88.81 and Irritable mood R45.4 [place] [address] [place] [id number] [address] [place] [address] Jun, [facility] [address] [id number] [place] [id number] Jun, Irritable mood R45.4 [place] [address] [place] [id number] [address] [place] [address] May, [facility] [address] [place] [address] May, [place] [address] [place] [id number] [address] [place] [address] May, Recurrent major depressive d isorder, in partial remission F33.41 ; Mixed obsessional thoughts and acts F42.2 ; 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 and BMI 45.0-49.9, adult Z68.42 [facility] [address] [facility] [id number] [address] [place] [address] 27 Apr, 2018 [facility] [address] [facility] [id number] [address] [place] [address] Apr, [facility] [address] [place] [id number] [address] [place] [address] Apr, [place] [address] [facility] [id number] [address] [place] [address] Apr, [place] [address] [place] [id number] [address] [place] [address] Mar, Mixed obsessional thoughts a nd acts F42.2 ; Recurrent major depressive disorder, in partial remission F33.41 ; DANIELA (generalized anxiety disorder) F41.1 and BMI 45.0-49.9, adult Z68.[address] [place] [id number] [place] [address] [id number] Mar, [place] [id number] [place] [address] [id number] Mar, BMI 45.0-49.9, adult Z68.42 ; Instabilit y of right knee joint M25.361 and Rash R21 [place] [address] [place] [id number] [address] [place] [address] Jan, Recurrent major depressive d isorder, in partial remission F33.41 ; Mixed obsessional thoughts and acts F42.2 and BMI 45.0-49.9, adult Z68.[address] [place] [address] [id number] [place] [id number] Jan, [place] [id number] [place] [address] [id number] Jan, Benign essential hypertension I10 ; BMI 45.0-49.9, adult Z68.42 ; Metabolic syndrome E88.81 and Allergic rhinitis, unspecified seasonality, unspecified trigger J30.9 [place] [address] [place] [id number] [address] [place] [address] Dec, DANIELA (generalized anxiety dis order) F41.1 and Depressive disorder, not elsewhere classified F32.[address] [facility] [address] [address] [id number] [place] [id number] Dec, Recurrent major depressive disorder, in partial remission F33.[address] [facility] [address] [address] [id number] [place] [id number] Dec, [facility] [address] [id number] [place] [id number] Nov, [facility] [address] [id number] [place] [id number] Nov, Recurrent major depressive disorder, in partial remission F33.41 [facility] [address] [place] [id number] [address] [place] [address] Nov, Recurrent major depressive d isorder, in partial remission F33.41 ; Mixed obsessional thoughts and acts F42.2 ; DANIELA (generalized anxiety disorder) F41.1 and BMI 45.0-49.9, adult Z68.[address] [facility] [address] [address] [id number] [place] [id number] Nov, [facility] [address] [id number] [place] [id number] Nov, Other conjunctivitis of both eyes H10.89 and Sciatica, right side M54.[address] [facility] [address] [address] [id number] [place] [id number] Nov, [facility] [address] [id number] [place] [id number] Nov, [facility] [address] [id number] [place] [id number] October, [facility] [address] [id number] [place] [id number] October, [facility] [address] [place] [id number] [address] [place] [address] October, BMI 45.0-49.9, adult Z68.42 ; Mixed obsessional thoughts and acts F42.2 ; Recurrent major depressive disorder, in partial remission F33.41 and DANIELA (generalized anxiety disorder) F41.1 [facility] [address] [id number] [place] [id number] October, Benign essential hypertension I10 ; Morb id obesity E66.01 and BMI 45.0-49.9, adult Z68.42 [facility] [address] [id number] [place] [id number] Sep, [facility] [id number] [place] [address] [id number] Sep, [facility] [id number] [place] [address] [id number] Sep, [facility] [address] AV[id number] [place] [address] [id number] Sep, Hospital discharge follow-up Z09 ; Aller gic rhinitis, unspecified seasonality, unspecified trigger J30.9 and Shortness of breath R06.02 [facility] [address] [id number] [place] [address] [id number] Sep, Recurrent major depressive disorder, in partial remission F33.[address] [id number] [place] [id number] Aug, Irritable mood R45.4 [place] [address] [place] [id number] [address] [place] [address] Aug, [address] [id number] [place] [address] [id number] Jul, Benign essential hypertension I10 ; Robert a R60.9 and Impacted cerumen of left ear H61.22 [facility] [address] [facility] [id number] [address] [place] [address] 14 Jul, 2017 Major depression F32.9 ; Rec urrent major depressive disorder, in partial remission F33.41 and Anxiety F41.9 [place] [address] [facility] [id number] [address] [place] [address] Jun, Major depression F32.9 ; Rec urrent major depressive disorder, in partial remission F33.41 and Anxiety F41.9 [facility] [address] [id number] [place] [id number] Jun, Major depression F32.9 ; Morbid obesity E66.01 ; Irritable mood R45.4 ; Hand weakness R29.898 and Vitamin D deficiency E55.9 [facility] [address] [id number] [place] [id number] Jun, [place] [address] [id number] [place] [id number] May, Major depression F32.9 [place] [address] [facility] [id number] [address] [place] [address] May, Major depression F32.9 [facility] [address] [id number] [place] [id number] May, BMI 50.0-59.9, adult Z68.43 ; Major depr ession F32.9 ; Anxiety F41.9 ; Hypertrophic toenail L60.2 and Pain of left great toe M79.[address] [place] [address] [id number] [place] [id number] May, Recurrent major depressive disorder, in partial remission F33.41 [place] [address] [facility] [id number] [address] [place] [address] Apr, [facility] [address] [id number] [place] [id number] Apr, [place] [address] [facility] [id number] [address] [place] [address] Apr, Major depression F32.9 [facility] [address] [id number] [place] [id number] Apr, Severe episode of recurrent major depres sive disorder, without psychotic features F33.2 ; Anxiety F41.9 and Insomnia G47.[address] [place] [address] [id number] [place] [id number] Apr, [facility] [address] [facility] [id number] [address] [place] [address] Apr, [id number] [place] [id number] Apr, [address] [id number] [place] [address] [id number] Mar, [address] [id number] [place] [address] [id number] Mar, Allergic conjunctivitis of both eyes H10 .13 [place] [address] [facility] [id number] [address] [place] [address] Mar, Major depression F32.[address] [id number] [place] [address] [id number] Mar, Metabolic syndrome E88.81 ; History of g astric bypass Z98.890 ; Benign essential hypertension I10 ; Allergic conjunctivitis of both eyes H10.13 and Morbid obesity E66.01 [facility] [address] [facility] [id number] [address] [place] [address] Mar, Major depression F32.[address] [id number] [place] [id number] Feb, [facility] [address] [facility] [id number] [address] [place] [address] Feb, Major depression F32.[address] [id number] [place] [address] [id number] Feb, Subacute maxillary sinusitis J01.00 and Bronchitis J40 [facility] [address] [facility] [id number] [address] [place] [phone] 06 Feb, 2017 Major depressive disorder, r ecurrent, moderate F33.[address] [id number] [place] [id number] Jan, [facility] [address] [id number] [place] [id number] Jan, Acute non-recurrent maxillary sinusitis J01.00 and Skin tag L91.8 [facility] [place] [address] [place] [address] A[place] [id number] [place] [id number] Jan, Cough R05 and Sinus congestion R09.81 [facility] [place] [address] [facility] [address] [id number] [place] [id number] Jan, [facility] [address] [id number] [place] [id number] Jan, Benign essential hypertension I10 ; Hist ory of gastric bypass Z98.890 and Nausea and vomiting in adult R11.2 [facility] [address] [place] [address] Jan, Major depressive disorder, r ecurrent, moderate F33.1 [facility] [address] [facility] [id number] [address] [place] [address] Dec, Insomnia G47.00 ; Recurrent major depressive disorder, in partial remission F33.41 and Morbid obesity E66.01 [facility] [address] [id number] [place] [id number] Dec, [facility] [address] [id number] [place] [id number] Dec, Chronic bacterial conjunctivitis of left eye H10.402 [facility] [place] [address] [facility] [address] [id number] [place] [id number] Nov, [facility] [address] [id number] [place] [id number] Nov, Dental examination Z01.20 [facility] [place] [address] [facility] [address] [id number] [place] [id number] Nov, Benign essential hypertension I10 ; Hist ory of gastric bypass Z98.890 and Nausea and vomiting in adult R11.2 [place] [address] [facility] [id number] [address] [place] [id number] 13 Nov, 2016 Major depressive disorder, r ecurrent, moderate F33.1 ; Generalized anxiety disorder F41.1 and Insomnia due to other mental disorder F51.05 [place] [address] [address] [facility] [id number] [address] [place] [id number] Nov, Recurrent major depressive d isorder, in partial remission F33.41 ; Insomnia G47.00 and Morbid obesity E66.01 [facility] [address] [id number] [place] [id number] October, Abscess of left arm L02.414 [place] [address] [address] [facility] [id number] [address] [place] [phone] October, Morbid obesity E66.01 ; Lida r depression F32.9 and Recurrent major depressive disorder, in partial remission F33.[address] [id number] [place] [id number] Sep, Benign essential hypertension I10 ; Morb id obesity E66.01 ; S/P gastric bypass Z98.84 ; Abscess L02.91 and Chronic bacterial conjunctivitis of left eye H10.[id number] [place] [id number] Sep, Dental examination Z01.20 [place] [id number] [address] [place] [phone] Sep, Morbid obesity E66.01 ; Lida r depression F32.9 and Recurrent major depressive disorder, in partial remission F33.41 [place] [address] [address] [facility] [id number] [address] [place] [phone] Jul, [place] [address] [address] [facility] [id number] [address] [place] [phone] Jul, Major depressive disorder, r ecurrent, moderate F33.1 [place] [address] [address] [facility] [id number] [address] [place] [id number] Jul, Major depressive disorder, r ecurrent, moderate F33.1 and Generalized anxiety disorder F41.1 [facility] [id number] [place] [id number] Jul, Cough R05 [facility] [address] [facility] [id number] [address] [place] [phone] Jul, Morbid obesity E66.01 ; Lida r depression F32.9 and Recurrent major depressive disorder, in partial remission F33.41 [facility] [id number] [place] [address] [id number] Jul, [facility] [id number] [place] [address] [id number] Jul, [facility] [place] [id number] [place] [address] [id number] Jul, Gastroenteritis K52.9 and Cough R[address] [place] [id number] [place] [address] [id number] Jun, Acute bacterial conjunctivitis of left e ye H10.32 [facility] [id number] [place] [address] Jun, [facility] [address] [place] [id number] [address] [place] [address] Jun, Recurrent major depressive d isorder, in partial remission F33.41 [facility] [address] [place] [id number] [address] [place] [address] May, Major depression F32.9 and M orbid obesity E66.01 [facility] [address] [facility] [id number] [address] [place] [address] May, [facility] [id number] [place] [address] [id number] May, Thrush B37.0 [facility] [address] [place] [id number] [address] [place] [address] Apr, Major depressive disorder, r ecurrent, moderate F33.1 [facility] [address] [facility] [id number] [address] [place] [address] Apr, Insomnia G47.00 ; Major depr ession F32.9 and Recurrent major depressive disorder, in partial remission F33.41 [facility] [address] [facility] [id number] [address] [place] [address] Apr, [facility] [address] [facility] [id number] [address] [place] [address] Apr, Major depression F32.9 and R ecurrent major depressive disorder, in partial remission F33.41 [facility] [id number] [place] [address] [id number] Mar, Benign essential hypertension I10 ; Morb id obesity E66.01 ; Impacted cerumen of both ears H61.23 ; Laceration of finger of right hand, initial encounter S61.219A and Encounter for immunization Z23 [facility] [address] [facility] [id number] [address] [place] [phone] 17 Mar, 2016 [place] [address] [facility] [id number] [address] [place] [address] Mar, [facility] [address] [facility] [id number] [address] [place] [address] Mar, [facility] [address] [id number] [place] [id number] Feb, Nausea R11.0 ; Blood in the stool K92.1 and Benign essential hypertension I10 [facility] [address] [facility] [id number] [address] [place] [address] Feb, Major depression F32.9 and R ecurrent major depressive disorder, in partial remission F33.41 [facility] [address] [id number] [place] [id number] Feb, [facility] [address] [id number] [place] [id number] Feb, Recurrent major depressive disorder, in partial remission F33.[address] [facility] [address] [id number] [place] [id number] Jan, [facility] [address] [id number] [place] [id number] Jan, Benign essential hypertension I10 ; Robert a R60.9 and Hyperlipidemia, unspecified hyperlipidemia type E78.[address] [facility] [address] [id number] [place] [id number] Jan, Recurrent major depressive disorder, in partial remission F33.41 [facility] [address] [id number] [place] [id number] Jan, [facility] [address] [id number] [place] [id number] Jan, [facility] [address] [id number] [place] [id number] Jan, [facility] [address] [facility] [id number] [address] [place] [address] Jan, [facility] [address] [facility] [id number] [address] [place] [address] Dec, [facility] [address] [facility] [id number] [address] [place] [address] Nov, [facility] [address] [facility] [id number] [address] [place] [address] Nov, Major depression F32.9 [facility] [address] [facility] [id number] [address] [place] [address] Nov, [facility] [address] [facility] [id number] [address] [place] [address] Nov, [facility] [address] [facility] [id number] [address] [place] [address] Nov, Major depressive disorder, r ecurrent episode, mild F33.0 and Anxiety F41.[address] [facility] [address] [id number] [place] [id number] Nov, [address] [id number] [place] [id number] October, Left elbow pain M25.522 and Other season al allergic rhinitis J30.[address] [id number] [place] [id number] October, [place] [address] [facility] [id number] [address] [place] [address] October, Major depressive disorder, r ecurrent, moderate F33.1 [facility] [address] [facility] [id number] [address] [place] [address] October, Major depression F32.9 [place] [address] [facility] [id number] [address] [place] [address] Sep, Lares or callus L84 and Onych omycosis B35.1 [place] [address] [facility] [id number] [address] [place] [address] Sep, Major depressive disorder, r ecurrent, moderate F33.1 [facility] [address] [facility] [id number] [address] [place] [address] Sep, Major depression F32.9 [place] [address] [facility] [id number] [address] [place] [address] Sep, Moderate episode of recurren t major depressive disorder F33.[address] [id number] [place] [id number] Sep, Muscle strain T14.8 [facility] [address] [facility] [id number] [address] [place] [address] Aug, Major depression F32.9 [place] [address] [facility] [id number] [address] [place] [address] Aug, Major depression F32.9 [place] [address] [facility] [id number] [address] [place] [address] Jul, Morbid obesity E66.01 and Ma cora depression F32.9 [facility] [address] [facility] [id number] [address] [place] [address] 24 Jul, 2015 Depression, major, recurrent , moderate F33.1 [facility] [address] [facility] [address] [id number] [place] [id number] Jul, [facility] [address] [facility] [id number] [address] [place] [address] Jul, [facility] [address] [facility] [id number] [address] [place] [address] 16 Jul, 2015 Major depression F32.9 and M orbid obesity E66.01 [facility] [id number] [place] [address] [id number] 11 Jul, 2015 Type II diabetes mellitus E11.9 ; Callus of foot L84 ; Benign essential hypertension I10 and Renal insufficiency N28.9 [facility] [address] [facility] [id number] [address] [place] [phone] 09 Jul, 2015 Depression, major, recurrent , moderate F33.1 [place] [address] [facility] [id number] [address] [place] [phone] 05 Jul, 2015 Major depression F32.9 [place] [address] [place] [id number] [address] [place] [address] Jul, [facility] [address] [place] [id number] [address] [place] [address] Jun, Major depression F32.9 [facility] [address] [facility] [id number] [address] [place] [address] Jun, Major depressive disorder, r ecurrent, moderate F33.1 [place] [address] [place] [id number] [address] [place] [address] Jun, [facility] [address] [place] [id number] [address] [place] [address] Jun, Major depressive disorder, r ecurrent, moderate F33.1 and Major depression F32.[address] [place] [address] [id number] [place] [id number] Jun, Type II diabetes mellitus E11.9 [facility] [address] [facility] [id number] [address] [place] [address] Jun, Depression, major, recurrent , moderate F33.1 [place] [address] [facility] [id number] [address] [place] [address] May, Major depressive disorder, r ecurrent, moderate F33.1 [place] [address] [facility] [id number] [address] [place] [address] May, [address] [id number] [place] [address] [id number] May, Edema R60.9 [place] [address] [facility] [id number] [address] [place] [address] May, Insomnia G47.00 and Major de pression F32.[id number] [place] [address] [id number] 15 May, 2015 Morbid obesity E66.01 ; Edema R60.9 ; Sh ortness of breath R06.02 ; Benign essential hypertension I10 and Renal insufficiency N28.[id number] [place] [address] [id number] May, Hyperlipemia 272.4 and Renal insufficien cy N28.9 [place] [address] [facility] [id number] [address] [place] [address] Apr, Major depression F32.9 [place] [address] [facility] [id number] [address] [place] [address] Apr, [place] [address] [facility] [id number] [address] [place] [address] Apr, Major depressive disorder, r ecurrent, moderate F33.[address] [id number] [place] [address] [id number] Apr, Type II diabetes mellitus E11.9 ; Benign essential hypertension I10 ; Edema R60.9 and Renal insufficiency N28.9 [place] [address] [facility] [id number] [address] [place] [address] Mar, Major depressive disorder, r ecurrent, moderate F33.1 [place] [address] [facility] [id number] [address] [place] [address] Mar, [place] [address] [facility] [id number] [address] [place] [address] Mar, Major depression F32.[address] [place] [id number] [place] [address] [id number] Mar, Morbid obesity E66.01 ; Benign essential hypertension I10 and Type II diabetes mellitus E11.9 [place] [address] [facility] [id number] [address] [place] [address] Feb, Major depressive disorder, r ecurrent, moderate F33.1 [place] [address] [facility] [id number] [address] [place] [address] Feb, Major depressive disorder, r ecurrent episode, in partial or unspecified remission 296.35 ; Anxiety state, unspecified 300.00 and Morbid obesity 278.01 [place] [address] [facility] [id number] [address] [place] [address] Feb, [facility] [address] [id number] [place] [id number] Feb, Vomiting 787.03 and Viral syndrome 079.9 9 [place] [address] [facility] [id number] [address] [place] [address] 15 Feb, 2015 Major depression, recurrent 296.30 ; Generalized anxiety disorder 300.02 and No condition on [place] II V71.09 [facility] [address] [id number] [place] [id number] 03 Feb, 2015 Skin tag 701.9 [place] [address] [facility] [id number] [address] [place] [address] Feb, [facility] [address] [facility] [id number] [address] [place] [address] Jan, Depression, major, recurrent , moderate 296.32 [facility] [address] [place] [address] AVE [id number] [place] [id number] Jan, Nausea and vomiting 787.01 ; Rib pain on right side 786.50 and Fall on or from sidewalk curb E880.1 [facility] [address] [facility] [id number] [address] [place] [address] Jan, [facility] [address] [facility] [id number] [address] [place] [address] Jan, Major depressive disorder, r ecurrent episode, in partial or unspecified remission 296.35 and Anxiety state, unspecified 300.[address] [id number] [place] [id number] Jan, [facility] [address] [facility] [id number] [address] [place] [address] Jan, Depression, major, recurrent , moderate 296.32 [facility] [address] [place] [id number] [address] [place] [address] Jan, Major depression, recurrent 296.30 ; No condition on [place] II V71.09 and No condition on axis III V71.[address] [id number] [place] [id number] Jan, Drug-induced nausea and vomiting 787.01 [facility] [address] [facility] [id number] [address] [place] [address] Jan, Depression, major, recurrent , moderate 296.32 [place] [address] [facility] [id number] [address] [place] [address] Dec, Depression, major, recurrent , moderate 296.[address] [id number] [place] [id number] Dec, Morbid obesity 278.01 ; Metabolic syndro me 277.7 ; Hyperlipemia 272.4 ; Benign essential hypertension 401.1 ; Dietary counseling V65.3 ; Exercise counseling V65.41 and Inflamed skin tag 701.9 [place] [address] [address] Dec, Depression, major, recurrent , moderate 296.[address] [address] Dec, [address] [address] Dec, Major depression, recurrent 296.30 ; Anxiety, generalized 300.02 and No condition on [place] II V71.[address] [address] Dec, Depression, major, recurrent , moderate 296.[address] [address] Dec, Major depressive disorder, r ecurrent episode, moderate 296.[address] [address] Dec, Depression, major, recurrent , moderate 296.[address] [address] Dec, Depression, major, recurrent , moderate 296.[address] [address] Dec, Depression, major, recurrent , moderate 296.[address] [address] Dec, Depression, major, recurrent , moderate 296.[address] [address] Nov, Depression, major, recurrent , moderate 296.[address] [address] Nov, Major depression 296.20 ; So cial phobia 300.23 and No condition on [place] II V71.09 [facility] [address] [facility] [id number] [address] [place] [address] 16 Nov, 2014 Depression, major, recurrent , moderate 296.32 [facility] [address] [facility] [id number] [address] [place] [address] Nov, Major depressive disorder, r ecurrent episode, moderate 296.32 and Generalized anxiety disorder 300.02 [facility] [address] [facility] [id number] [address] [place] [address] Nov, Depression, major, recurrent , moderate 296.32 [facility] [address] [facility] [id number] [address] [place] [address] Nov, Depression, major, recurrent , moderate 296.32 [facility] [address] [facility] [id number] [address] [place] [address] October, Generalized anxiety disorder 300.02 ; No condition on [place] II V71.09 and Major depressive disorder, recurrent 296.30 [facility] [address] [facility] [id number] [address] [place] [address] Sep, [facility] [address] [facility] [id number] [address] [place] [address] Sep, [facility] [address] [facility] [id number] [address] [place] [address] Aug, [facility] [address] [facility] [id number] [address] [place] [id number] Aug, [facility] [address] [facility] [id number] [address] [place] [address] Aug, [facility] [address] [facility] [id number] [address] [place] [address] Aug, [facility] [address] [facility] [id number] [address] [place] [address] Aug, [facility] [address] [facility] [id number] [address] [place] [address] 20 Aug, 2014 [facility] [address] [id number] [address] [place] [address], [place] [address] 20 Aug, 2014 [facility] [address] [id number] [address] [place] [address], [place] [address] 20 Aug, 2014 [facility] [address] [id number] [address] [place] [address], [place] [address] 13 Aug, 2014 [facility] [address] [id number] [address] [place] [address], [place] [address] 13 Aug, 2014 [facility] [address] [id number] [address] [place] [address], [place] [address] 13 Aug, 2014 [facility] [address] [id number] [address] [place] [address], [place] [address] 13 Aug, 2014 [facility] [address] [id number] [address] [place] [address], [place] [address] Aug, [facility] [address] [id number] [address] [place] [address], [place] [address] 12 Aug, 2014 [facility] [address] [id number] [address] [place] [address], [place] [address] 10 Aug, 2014 [facility] [address] [id number] [address] [place] [address], [place] [address] 10 Aug, 2014 [facility] [address] [id number] [address] [place] [address], [place] [address] 09 Aug, 2014 [facility] [address] [id number] [address] [place] [address], [place] [address] 09 Aug, 2014 [facility] [address] [id number] [address] [place] [address], [place] [address] 24 Jul, 2014 [facility] [address] [id number] [address] [place] [address], [place] [address] 24 Jul, 2014 [facility] [address] [id number] [address] [place] [address], [place] [address] 16 Jul, 2014 [facility] [address] [id number] [address] [place] [address], [place] [address] Jul, [facility] [address] [id number] [address] [place] [address], [place] [address] Jul, [facility] [address] [id number] [address] [place] [address], [place] [address] Jul, [facility] [address] [id number] [address] [place] [address], [place] [address] Jun, [facility] [address] [id number] [address] [place] [address], [place] [address] Jun, [facility] [address] [id number] [address] [place] [address], [place] [address] Jun, [facility] [address] [id number] [address] [place] [address], [place] [address] Jun, [facility] [address] [id number] [address] [place] [address], [place] [address] Jun, [facility] [address] [id number] [address] [place] [address], [place] [address] Jun, [facility] [address] [id number] [address] [place] [address], [place] [address] Jun, [facility] [address] [id number] [address] [place] [address], [place] [address] Jun, [facility] [address] [id number] [address] [place] [id number] Jun, [facility] [address] [id number] [address] [place] [address], [place] [address] Jun, [facility] [address] [id number] [address] [place] [address], [place] [address] Jun, [facility] [address] [id number] [address] [place] [id number] Jun, [facility] [address] [id number] [place] [id number] Jun, [facility] [address] [id number] [address] [place] [address], [place] [address] Jun, [facility] [address] [id number] [address] [place] [address], [place] [address] Jun, [facility] [address] [id number] [address] [place] [address], [place] [address] Jun, [facility] [address] [id number] [address] [place] [address], [place] [address] May, [facility] [address] [id number] [address] [place] [address], [place] [address] May, [facility] [address] [id number] [address] [place] [address], [place] [address] May, [facility] [address] [id number] [address] [place] [address], [place] [address] May, [facility] [address] [id number] [address] [place] [address], [place] [address] Apr, [facility] [address] [id number] [address] [place] [address], [place] [address] Apr, [facility] [address] [id number] [address] [place] [address], [place] [address] Apr, [facility] [address] [id number] [address] [place] [address] Apr, [facility] [address] [id number] [address] [place] [address] Apr, [facility] [address] [id number] [address] [place] [address], [place] [address] Apr, [facility] [address] [id number] [address] [place] [address], [place] [address] Apr, [facility] [address] [id number] [address] [place] [address] Apr, [facility] [address] [id number] [address] [place] [address], [place] [address] Apr, [facility] [address] [id number] [address] [place] [address], [place] [address] Apr, [facility] [address] [id number] [address] [place] [address], [place] [address] Apr, [facility] [address] [id number] [address] [place] [address], [place] [address] Apr, [facility] [address] [id number] [address] [place] [address], [place] [address] Apr, [facility] [address] [id number] [address] [place] [address], [place] [address] Apr, [facility] [address] [id number] [address] [place] [address], [place] [address] Apr, [facility] [address] [id number] [address] [place] [address], [place] [address] Apr, [facility] [address] [id number] [address] [place] [address], [place] [address] Apr, [facility] [address] [id number] [address] [place] [address], [place] [address] Apr, [facility] [address] [id number] [address] [place] [address], [place] [address] Apr, [facility] [address] [id number] [address] [place] [address], [place] [address] Apr, [facility] [address] [id number] [address] [place] [address], [place] [address] Mar, [facility] [address] [id number] [address] [place] [address], [place] [address] Mar, [facility] [address] [id number] [address] [place] [address], [place] [address] Mar, [facility] [address] [id number] [address] [place] [address], [place] [address] Mar, [facility] [address] [id number] [address] [place] [address], [place] [address] Mar, [facility] [address] [id number] [address] [place] [address], [place] [address] Mar, [facility] [address] [id number] [address] [place] [address], [place] [address] Mar, [facility] [address] [id number] [address] [place] [address], [place] [address] Mar, [facility] [address] [id number] [address] [place] [address], [place] [address] Mar, [facility] [address] [id number] [address] [place] [address], [place] [address] Mar, [facility] [address] [id number] [address] [place] [address], [place] [address] Feb, [facility] [address] [id number] [address] [place] [address], [place] [address] Feb, [facility] [address] [id number] [address] [place] [address], [place] [address] Feb, [facility] [address] [id number] [address] [place] [address], [place] [address] Feb, [facility] [address] [id number] [address] [place] [address], [place] [address] Jan, [facility] [address] [id number] [address] [place] [address], [place] [address] Jan, [facility] [address] [id number] [address] [place] [address], [place] [address] Jan, [facility] [address] [id number] [address] [place] [address], [place] [address] Jan, [facility] [address] [id number] [address] [place] [address], [place] [address] Jan, [facility] [address] [id number] [address] [place] [address], [place] [address] Jan, [facility] [address] [id number] [address] [place] [address], [place] [address] Dec, [facility] [address] [id number] [address] [place] [address], [place] [address] Dec, [facility] [address] [id number] [address] [place] [address], [place] [address] Nov, [facility] [address] [id number] [address] [place] [address], [place] [address] Nov, [facility] [address] [id number] [address] [place] [address], [place] [address] Nov, [facility] [address] [id number] [address] [place] [address], [place] [address] Nov, [facility] [address] [id number] [address] [place] [address], [place] [address] Nov, [facility] [address] [id number] [address] [place] [address], [place] [address] Nov, [facility] [address] [id number] [address] [place] [address], [place] [address] Sep, [facility] [address] [id number] [address] [place] [address], [place] [address] Sep, [facility] [address] [id number] [address] [place] [address], [place] [address] Sep, [facility] [address] [id number] [address] [place] [address], [place] [address] Sep, [facility] [address] [id number] [address] [place] [address], [place] [address] Aug, [facility] [address] [id number] [address] [place] [address], [place] [address] Aug, [facility] [address] [id number] [address] [place] [address], [place] [address] Jul, [facility] [address] [id number] [address] [place] [address], [place] [address] 14 Jul, 2013 [facility] [address] [id number] [address] [place] [address], [place] [address] Jun, [facility] [address] [id number] [address] [place] [address], [place] [address] Jun, [facility] [address] [id number] [address] [place] [address], [place] [address] Jun, [facility] [address] [id number] [address] [place] [address], [place] [address] Jun, [facility] [address] [id number] [address] [place] [address], [place] [address] May, [facility] [address] [id number] [address] [place] [address], [place] [address] May, [facility] [address] [id number] [address] [place] [address], [place] [address] May, [facility] [address] [id number] [address] [place] [address], [place] [address] May, [facility] [address] [id number] [address] [place] [address], [place] [address] May, [facility] [address] [id number] [address] [place] [address], [place] [address] May, [facility] [address] [id number] [address] [place] [address], [place] [address] Apr, [facility] [address] [id number] [address] [place] [address], [place] [address] Apr, [facility] [address] [id number] [address] [place] [address], [place] [address] Apr, [facility] [address] [id number] [address] [place] [address], [place] [address] Apr, [facility] [address] [id number] [address] [place] [address], [place] [address] Mar, [facility] [address] [id number] [address] [place] [address], [place] [address] Mar, [facility] [address] [id number] [address] [place] [address], [place] [address] Mar, [facility] [address] [id number] [address] [place] [address], [place] [address] Mar, [facility] [address] [id number] [address] [place] [address], [place] [address] Feb, [facility] [address] [id number] [id number] Jan, [facility] [address] [id number] [address] [place] [address], [place] [address] Jan, [facility] [address] [id number] [address] [place] [address], [place] [address] Dec, [facility] [address] [id number] [address] [place] [address], [place] [address] Dec, [facility] [address] [id number] [address] [place] [address], [place] [address] Dec, [facility] [address] [id number] [place] [id number] Dec, [facility] [address] [id number] [address] [place] [address], [place] [address] 17 Nov, 2012 [facility] [address] [id number] [address] [place] [address], [place] [address] 14 Nov, 2012 [facility] [address] [id number] [address] [place] [address], [place] [address] Nov, [facility] [address] [id number] [address] [place] [address], [place] [address] Nov, [facility] [address] [id number] [address] [place] [address], [place] [address] Nov, [facility] [address] [id number] [address] [address] October, [facility] [address] [facility] [id number] [address] [place] [address] October, [facility] [address] [facility] [id number] [address] [place] [address] Aug, [facility] [address] [facility] [id number] [address] [place] [address] Nov, IMMUNIZATIONS No Known Immunizations SOCIAL HISTORY [...] 03/2016 Hospitalization History gastric sleeve Hospitalization History [facility] Trouble with left shoulder blade 08/2017
[2019-11-29 09:10] VITALS: BP 133/79
--- OUTSIDE RECORDS SUMMARY | 2019-11-29 09:10 | XMS REPORT ---
Author Author Fredy Curt Doctor Organization [facility] Address Unknown Phone Unavailable Care Team Providers Care Assembler Insulator Name Role Phone Migration, Doctor Unavailable Unavailable PROBLEMS Type Condition ICD9-CM Code [id number] Code Onset Dates Condition S tatus SNOMED Code Problem Insomnia G47.00 Active 761499072 Problem Hyperlipemia E78.5 Active 1486348 4 Problem Morbid obesity E66.01 Active 98289 6002 Problem Benign essential hypertension I10 Active 1734216 Problem Renal insufficiency N28.9 Active 940112640 Problem Edema R60.9 Active 404718911 Problem Severe episode of recurrent major depressive disorder, without psychotic features F33.2 Active 38693072 Problem Metabolic syndrome E88.81 Active 2 28197299 Problem DANIELA (generalized anxiety disorder) F41.1 Active 08094817 Problem BMI 45.0-49.9, adult Z68.42 Active 044281653 Problem Sciatica, right side M54.31 Active 299435538442750 Problem Hammer toe of second toe of right foot M20.41 Active 592568430 Problem Mixed obsessional thoughts and acts F42.2 Active 50699974 Problem Hammer toe of right foot M20.41 Activ e 536530928 Problem Vitamin D deficiency E55.9 Active 97939431 Problem Chronic fatigue R53.82 Active 8422 9001 Problem Other chronic pain G89.29 Active 8 9753124 Problem Borderline personality disorder F60.3 Active 91069800 Problem Callous ulcer, limited to breakdown of skin L98.49 1 Active ALLERGIES No Information ENCOUNTERS Encounter Location Date Diagnosis [address] [id number] [place] [id number] Jun, [facility] [address] [facility] [id number] [address] [place] [address] Feb, [address] [id number][place] [id number] Jan, Callus of heel L84 ; Fissure in skin R23 .4 and Hammer toe of second toe of right foot M20.41 [facility] [address] [id number], [place] [id number] Jan, [facility] [address] [facility] [id number] [address] [place] [id number] Jan, [facility] [address] [facility] [id number] [address] [place] [id number] Jan, [facility] [address] [facility] [id number] [address] [place] [phone] Jan, Severe episode of recurrent major depressive disorder, without psychotic features F33.2 ; DANIELA (generalized anxiety disorder) F41.1 ; Mixed obsessional thoughts and acts F42.2 and Borderline personality disorder F60.3 [place] [address] [facility] [id number] [address] [place] [phone] Jan, [facility] [id number] [place] [address] [phone] Jan, Benign essential hypertension I10 [address] [id number] [place] [address] [id number] Dec, Callous ulcer, limited to breakdown of s kin L98.491 and Morbid obesity E66.01 [facility] [address] [facility] [id number] [address] [place] [phone] Dec, [facility] [address] [facility] [id number] [address] [place] [id number] Dec, [facility] [address] [facility] [id number] [address] [place] [id number] Dec, [facility] [address] [facility] [id number] [address] [place] [phone] Dec, [facility] [address] [facility] [id number] [address] [place] [id number] Dec, Severe episode of recurrent major depressive disorder, without psychotic features F33.2 [facility] [address] [facility] [id number] [address] [place] [phone] Dec, DANIELA (generalized anxiety dis order) F41.1 ; Severe episode of recurrent major depressive disorder, without psychotic features F33.2 ; Mixed obsessional thoughts and acts F42.2 and 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 [facility] [address] [id number], [place] [id number] Dec, Morbid obesity E66.01 [facility] [address] [facility] [id number] [address] [place] [phone] Dec, [facility] [address] [facility] [id number] [address] [place] [phone] Dec, [address] [phone] Nov, [facility] [address] [id number], [place] [id number] Nov, [facility] [address] [facility] [id number] [address] [place] [phone] Nov, [facility] [address] [facility] [id number] [address] [place] [phone] Nov, [facility] [address] [facility] [id number] [address] [place] [phone] Nov, DANIELA (generalized anxiety dis order) F41.1 ; Severe episode of recurrent major depressive disorder, without psychotic features F33.2 ; Mixed obsessional thoughts and acts F42.2 and 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 [facility] [address] [id number], [place] [id number] Nov, Morbid obesity E66.01 [facility] [address] [facility] [id number] [address] [place] [phone] Nov, [facility] [address] [facility] [id number] [address] [place] [phone] Nov, DANEILA (generalized anxiety dis order) F41.1 ; Mixed obsessional thoughts and acts F42.2 ; Severe episode of recurrent major depressive disorder, without psychotic features F33.2 and 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 [facility] [address] [id number], [place] [id number] October, Morbid obesity E66.01 [facility] [address] [facility] [id number], [place] [id number] October, Benign essential hypertension I10 and Mo rbid obesity E66.01 [facility] [address]ender[address] [place] [address] AVE [id number] [place] [address] [id number] October, [facility] [address] [id number] [address] [place] [phone] October, Severe episode of recurrent major depressive disorder, without psychotic features F33.2 [facility] [facility] [id number] [place] [address] [id number] October, Morbid obesity E66.01 [facility] [address]ender[address] [place] [id number] [place] [address] [id number] October, [facility] [address] [id number] [address] [place] [id number] October, Severe episode of recurrent major depressive disorder, without psychotic features F33.2 ; DANIELA (generalized anxiety disorder) F41.1 ; Mixed obsessional thoughts and acts F42.2 and 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 [facility] Yulia[address] [place] [id number] [place] [address] [id number] October, Morbid obesity E66.01 [facility] [address] [facility] [id number] [address] [place] [address] [id number] Sep, Dental examination Z01.20 [facility] [address] [place] [id number] [place] [address] [phone] Sep, [facility] [address] [id number] [address] [place] [id number] Sep, Sore in mouth K13.79 and Mor bid obesity E66.01 [facility] [address] [id number] [address] [place] [phone] Sep, Dental examination Z01.20 [facility] [address] 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 [facility] [id number], [place] [id number] Aug, Mouth abscess K12.2 ; Mouth ulcer K12.1 ; Bloating R14.0 and Morbid obesity E66.01 [facility] [id number], [place] [id number] Aug, [facility] [id number], [place] [id number] Aug, [facility] [address] [id number], [place] [id number] Jul, Major depressive disorder, recurrent, mo derate F33.1 ; Abscess of arm, left L02.414 ; BMI 45.0-49.9, adult Z68.42 and Morbid obesity E66.01 [facility] [address] [id number], [place] [id number] Jul, [facility] [id number], [place] [id number] Jul, [facility] [address] [id number], [place] [id number] Jun, Pain in right knee M25.561 and Other chr onic pain G89.29 [facility] [address] [id number], [place] [id number] Jun, Benign essential hypertension I10 ; BMI 45.0-49.9, adult Z68.42 ; Morbid obesity E66.01 ; Vitamin D deficiency E55.9 ; Insomnia G47.00 ; 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 ; Edema R60.9 ; Recurrent major depressive disorder, in partial remission F33.41 ; Chronic fatigue R53.82 ; Acute pain of right knee M25.561 ; Metabolic syndrome E88.81 and Irritable mood R45.4 [facility] [address] [facility] [id number] [address] [place] [phone] Jun, [facility] [address] [id number], [place] [id number] Jun, Irritable mood R45.4 [facility] [address] [facility] [id number] [address] [place] [phone] May, [facility] [address] [facility] [id number] [address] [place] [phone] May, [facility] [address] [facility] [id number] [address] [place] [phone] May, Recurrent major depressive d isorder, in partial remission F33.41 ; Mixed obsessional thoughts and acts F42.2 ; 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 and BMI 45.0-49.9, adult Z68.42 [facility] [address] [facility] [id number] [address] [place] [id number] Apr, [facility] [address] [facility] [id number] [address] [place] [phone] Apr, [facility] [address] [facility] [id number] [address] [place] [id number] 14 Apr, 2018 [facility] [address] [facility] [id number] [address] [place] [phone] Apr, [place] [address] [facility] [id number] [address] [place] [phone] Mar, Mixed obsessional thoughts a nd acts F42.2 ; Recurrent major depressive disorder, in partial remission F33.41 ; DANIELA (generalized anxiety disorder) F41.1 and BMI 45.0-49.9, adult Z68.42 [facility] [address] [id number], [place] [id number] Mar, [facility] [address] [id number], [place] [id number] Mar, BMI 45.0-49.9, adult Z68.42 ; Instabilit y of right knee joint M25.361 and Rash R21 [place] [address] [facility] [id number] [address] [place] [id number] Jan, Recurrent major depressive d isorder, in partial remission F33.41 ; Mixed obsessional thoughts and acts F42.2 and BMI 45.0-49.9, adult Z68.[address] [id number], [place] [id number] Jan, [facility] [address] [id number], [place] [id number] Jan, Benign essential hypertension I10 ; BMI 45.0-49.9, adult Z68.42 ; Metabolic syndrome E88.81 and Allergic rhinitis, unspecified seasonality, unspecified trigger J30.9 [place] [address] [facility] [id number] [address] [place] [id number] Dec, DANIELA (generalized anxiety dis order) F41.1 and Depressive disorder, not elsewhere classified F32.9 [facility] [address] [id number], [place] [id number] Dec, Recurrent major depressive disorder, in partial remission F33.41 [facility] [address] [id number], [place] [id number] Dec, [facility] [address] [id number], [place] [id number] Nov, [facility] [address] [id number], [place] [id number] Nov, Recurrent major depressive disorder, in partial remission F33.41 [facility] [address] [facility] [id number] [address] [place] [id number] Nov, Recurrent major depressive d isorder, in partial remission F33.41 ; Mixed obsessional thoughts and acts F42.2 ; DANIELA (generalized anxiety disorder) F41.1 and BMI 45.0-49.9, adult Z68.42 [facility] [address] [id number], [place] [id number] Nov, [facility] [address] [address] [id number], [place] [id number] Nov, Other conjunctivitis of both eyes H10.89 and Sciatica, right side M54.31 [facility] [address] [id number], [place] [id number] Nov, [facility] [address] [id number], [place] [id number] Nov, [facility] [address] [address] [id number], [place] [id number] October, [facility] [address] [id number], [place] [id number] October, [facility] [address] [facility] [id number] [address] [place] [phone] October, BMI 45.0-49.9, adult Z68.42 ; Mixed obsessional thoughts and acts F42.2 ; Recurrent major depressive disorder, in partial remission F33.41 and DANIELA (generalized anxiety disorder) F41.1 [facility] [address] [id number], [place] [id number] October, Benign essential hypertension I10 ; Morb id obesity E66.01 and BMI 45.0-49.9, adult Z68.[address] [facility] [address] [address] [id number], [place] [id number] Sep, [facility] [id number], [place] [id number] Sep, [facility] [address] [place] [address] AVE [id number], [place] [id number] Sep, [facility] [id number], [place] [id number] Sep, Hospital discharge follow-up Z09 ; Aller gic rhinitis, unspecified seasonality, unspecified trigger J30.9 and Shortness of breath R06.[address] [id number], [place] [id number] Sep, Recurrent major depressive disorder, in partial remission F33.41 [facility] [id number], [place] [id number] Aug, Irritable mood R45.4 [place] [address] [place] [phone] Aug, [facility] [id number], [place] [id number] Jul, Benign essential hypertension I10 ; Robert a R60.9 and Impacted cerumen of left ear H61.22 [place] [address] [place] [phone] Jul, Major depression F32.9 ; Rec urrent major depressive disorder, in partial remission F33.41 and Anxiety F41.9 [place] [address] [place] [id number] [place] [phone] Jun, Major depression F32.9 ; Rec urrent major depressive disorder, in partial remission F33.41 and Anxiety F41.9 [facility] [id number], [place] [id number] Jun, Major depression F32.9 ; Morbid obesity E66.01 ; Irritable mood R45.4 ; Hand weakness R29.898 and Vitamin D deficiency E55.9 [facility] [address] [id number], [place] [id number] Jun, [facility] [address] [id number], [place] [id number] May, Major depression F32.9 [place] [address] [place] [id number] [address] [place] [phone] May, Major depression F32.9 [facility] [address] [id number], [place] [id number] May, BMI 50.0-59.9, adult Z68.43 ; Major depr ession F32.9 ; Anxiety F41.9 ; Hypertrophic toenail L60.2 and Pain of left great toe M79.[id number] [place] [address] [id number] May, Recurrent major depressive disorder, in partial remission F33.41 [place] [address] [place] [id number] [address] [place] [id number] Apr, [address] [address] [id number] [place] [address] [id number] Apr, [facility] [address] [facility] [id number] [address] [place] [id number] Apr, Major depression F32.[id number] [place] [address] [id number] Apr, Severe episode of recurrent major depres sive disorder, without psychotic features F33.2 ; Anxiety F41.9 and Insomnia G47.00 [facility] [id number] [place] [address] [id number] Apr, [facility] [address] [facility] [id number] [address] [place] [phone] Apr, [facility] [id number] [place] [address] [id number] Apr, [facility] [address] [id number], [place] [id number] Mar, [facility] [address] [id number], [place] [id number] Mar, Allergic conjunctivitis of both eyes H10 .13 [facility] [address] [facility] [id number] [address] [place] [phone] Mar, Major depression F32.9 [facility] [address] [id number], [place] [id number] Mar, Metabolic syndrome E88.81 ; History of g astric bypass Z98.890 ; Benign essential hypertension I10 ; Allergic conjunctivitis of both eyes H10.13 and Morbid obesity E66.01 [facility] [address] [facility] [id number] [address] [place] [id number] Mar, Major depression F32.9 [place] [address] [facility] [id number], [place] [id number] Feb, [facility] [address] [facility] [id number] [address] [place] [phone] Feb, Major depression F32.9 [place] [address] [facility] [id number], [place] [id number] Feb, Subacute maxillary sinusitis J01.00 and Bronchitis J40 [place] [address] [facility] [id number] [address] [place] [id number] Feb, Major depressive disorder, r ecurrent, moderate F33.1 [facility] [address] [id number], [place] [id number] Jan, [facility] [address] [address] [id number], [place] [id number] Jan, Acute non-recurrent maxillary sinusitis J01.00 and Skin tag L91.8 [facility] [address] [id number], [place] [id number] Jan, Cough R05 and Sinus congestion R09.81 [facility] [address] [id number], [place] [id number] Jan, [facility] [id number], [place] [id number] Jan, Benign essential hypertension I10 ; Hist ory of gastric bypass Z98.890 and Nausea and vomiting in adult R11.2 [facility] [address] [facility] [id number] [address] [place] [phone] 04 Jan, 2017 Major depressive disorder, r ecurrent, moderate F33.1 [place] [address] [facility] [id number] [address] [place] [phone] Dec, Insomnia G47.00 ; Recurrent major depressive disorder, in partial remission F33.41 and Morbid obesity E66.01 [facility] [address] [place] [address] AVE [id number], [place] [id number] Dec, [facility] [id number] [place] [address] [id number] Dec, Chronic bacterial conjunctivitis of left eye H10.402 [facility] [id number], [place] [id number] Nov, [facility] [id number], [place] [id number] Nov, Dental examination Z01.20 [facility] [id number], [place] [id number] Nov, Benign essential hypertension I10 ; Hist ory of gastric bypass Z98.890 and Nausea and vomiting in adult R11.2 [facility] [address] [facility] [id number] [address] [place] [id number] 13 Nov, 2016 Major depressive disorder, r ecurrent, moderate F33.1 ; Generalized anxiety disorder F41.1 and Insomnia due to other mental disorder F51.05 [facility] [address] [facility] [id number] [address] [place] [phone] 12 Nov, 2016 Recurrent major depressive d isorder, in partial remission F33.41 ; Insomnia G47.00 and Morbid obesity E66.01 [facility] [address] [id number] FANNYKiesha S [id number] October, Abscess of left arm L02.414 [place] [address] [facility] [id number] [address] [place] [id number] October, Morbid obesity E66.01 ; Lida r depression F32.9 and Recurrent major depressive disorder, in partial remission F33.41 [facility] [id number] [place] [id number] Sep, Benign essential hypertension I10 ; Morb id obesity E66.01 ; S/P gastric bypass Z98.84 ; Abscess L02.91 and Chronic bacterial conjunctivitis of left eye H10.402 [facility] [id number] [place] [id number] Sep, Dental examination Z01.20 [place] [address] [address] [place] [id number] [address] [place] [id number] Sep, Morbid obesity E66.01 ; Lida r depression F32.9 and Recurrent major depressive disorder, in partial remission F33.41 [place] [address] [id number] Jul, [place] [address] [id number] Jul, Major depressive disorder, r ecurrent, moderate F33.1 [place] [id number] [place] [id number] Jul, Major depressive disorder, r ecurrent, moderate F33.1 and Generalized anxiety disorder F41.1 [facility] [id number] [place] [id number] Jul, Cough R05 [place] [address] [address] [place] [id number] [address] [place] [id number] Jul, 2016 Morbid obesity E66.01 ; Lida r depression F32.9 and Recurrent major depressive disorder, in partial remission F33.[address] [facility] [address] [id number] [id number] Jul, [facility] [address] [id number], [place] [id number] Jul, [facility] [id number] [place] [address] [id number] Jul, Gastroenteritis K52.9 and Cough R05 [facility] [id number] [place] [address] [id number] Jun, Acute bacterial conjunctivitis of left e ye H10.32 [facility] [address] [facility] [id number] [address] [place] [id number] Jun, [facility] [address] [facility] [id number] [address] [place] [id number] Jun, Recurrent major depressive d isorder, in partial remission F33.41 [facility] [address] [facility] [id number] [address] [place] [id number] May, Major depression F32.9 and M orbid obesity E66.01 [facility] [address] [facility] [id number] [address] [place] [phone] May, [facility] [address] [id number] [place] [address] [id number] May, Thrush B37.0 [facility] [address] [facility] [id number] [address] [place] [phone] Apr, Major depressive disorder, r ecurrent, moderate F33.1 [facility] [address] [facility] [id number] [address] [place] [id number] Apr, Insomnia G47.00 ; Major depr ession F32.9 and Recurrent major depressive disorder, in partial remission F33.41 [facility] [address] [facility] [id number] [address] [place] [id number] Apr, [facility] [address] [facility] [id number] [address] [place] [id number] Apr, Major depression F32.9 and R ecurrent major depressive disorder, in partial remission F33.[address] [place] [id number], [place] [id number] Mar, Benign essential hypertension I10 ; Morb id obesity E66.01 ; Impacted cerumen of both ears H61.23 ; Laceration of finger of right hand, initial encounter S61.219A and Encounter for immunization Z23 [facility] [address] [facility] [id number] [address] [place] [id number] 17 Mar, 2016 [facility] [address] [facility] [id number] [address] [place] [phone] Mar, [facility] [address] [facility] [id number] [address] [place] [id number] Mar, [address] [id number] [place] [address] [id number] Feb, Nausea R11.0 ; Blood in the stool K92.1 and Benign essential hypertension I10 [facility] [address] [facility] [id number] [address] [place] [id number] Feb, Major depression F32.9 and R ecurrent major depressive disorder, in partial remission F33.41 [place] [address] [id number], [place] [id number] Feb, [place] [address] [id number], [place] [id number] Feb, Recurrent major depressive disorder, in partial remission F33.[address] [place] [id number], [place] [id number] Jan, [address] [id number] [place] [address] [id number] Jan, Benign essential hypertension I10 ; Robert a R60.9 and Hyperlipidemia, unspecified hyperlipidemia type E78.[address] [id number], [place] [id number] Jan, Recurrent major depressive disorder, in partial remission F33.41 [facility] [address] [id number] Kiesha ESCOBEDO S [id number] Jan, [facility] [address] [id number], [place] [id number] Jan, [facility] [address] [id number], [place] [id number] Jan, [facility] [address] [facility] [id number] [address] [place] [phone] Jan, [facility] [address] [facility] [id number] [address] [place] [phone] Dec, [facility] [address] [facility] [id number] [address] [place] [id number] Nov, [facility] [address] [facility] [id number] [address] [place] [phone] Nov, Major depression F32.9 [facility] [address] [facility] [id number] [address] [place] [phone] Nov, [facility] [address] [facility] [id number] [address] [place] [phone] Nov, [facility] [address] [facility] [id number] [address] [place] [phone] Nov, Major depressive disorder, r ecurrent episode, mild F33.0 and Anxiety F41.9 [facility] [address] [id number], [place] [id number] Nov, [facility] [address] [id number], [place] [id number] October, Left elbow pain M25.522 and Other season al allergic rhinitis J30.2 [facility] [address] [id number], [place] [id number] October, [facility] [address] [facility] [id number] [address] [place] [id number] October, Major depressive disorder, r ecurrent, moderate F33.1 [facility] [address] [facility] [id number] [address] [place] [id number] October, Major depression F32.9 [facility] [address] [facility] [id number] [address] [place] [phone] Sep, [place] or callus L84 and Onych omycosis B35.1 [facility] [address] [facility] [id number] [address] [place] [phone] Sep, Major depressive disorder, r ecurrent, moderate F33.1 [facility] [address] [facility] [id number] [address] [place] [phone] Sep, Major depression F32.9 [facility] [address] [facility] [id number] [address] [place] [id number] Sep, Moderate episode of recurren t major depressive disorder F33.1 [facility] [address] [id number], [place] [id number] Sep, Muscle strain T14.8 [facility] [address] [facility] [id number] [address] [place] [phone] Aug, Major depression F32.9 [facility] [address] [facility] [id number] [address] [place] [id number] Aug, Major depression F32.9 [facility] [address] [facility] [id number] [address] [place] [id number] Jul, Morbid obesity E66.01 and Ma cora depression F32.9 [facility] [address] [facility] [id number] [address] [place] [id number] Jul, Depression, major, recurrent , moderate F33.1 [facility] [address] [id number], [place] [id number] Jul, [facility] [address] [facility] [id number] [address] [place] [phone] Jul, [facility] [address] [facility] [id number] [address] [place] [id number] 16 Jul, 2015 Major depression F32.9 and M orbid obesity E66.[address] [id number], [place] [id number] 11 Jul, 2015 Type II diabetes mellitus E11.9 ; Callus of foot L84 ; Benign essential hypertension I10 and Renal insufficiency N28.9 [place] [address] [facility] [id number] [address] [place] [id number] 09 Jul, 2015 Depression, major, recurrent , moderate F33.1 [place] [address] [facility] [id number] [address] [place] [id number] Jul, Major depression F32.9 [place] [address] [place] [id number] [address] [place] [id number] Jul, [place] [address] [place] [id number] [address] [place] [id number] Jun, Major depression F32.9 [place] [address] [facility] [id number] [address] [place] [id number] Jun, Major depressive disorder, r ecurrent, moderate F33.1 [place] [address] [place] [id number] [address] [place] [id number] Jun, [place] [address] [place] [id number] [address] [place] [phone] Jun, Major depressive disorder, r ecurrent, moderate F33.1 and Major depression F32.[address] [id number], [place] [id number] Jun, Type II diabetes mellitus E11.9 [place] [address] [facility] [id number] [address] [place] [id number] Jun, Depression, major, recurrent , moderate F33.1 [place] [address] [facility] [id number] [address] [place] [id number] May, Major depressive disorder, r ecurrent, moderate F33.1 [facility] [address] [facility] [id number] [address] [place] [phone] May, [id number] [place] [address] [id number] May, Edema R60.9 [facility] [address] [facility] [id number] [address] [place] [id number] May, Insomnia G47.00 and Major de pression F32.[id number] [place] [address] [id number] 15 May, 2015 Morbid obesity E66.01 ; Edema R60.9 ; Sh ortness of breath R06.02 ; Benign essential hypertension I10 and Renal insufficiency N28.[address] [id number] [place] [address] [id number] May, Hyperlipemia 272.4 and Renal insufficien cy N28.9 [place] [address] [facility] [id number] [address] [place] [phone] Apr, Major depression F32.9 [place] [address] [facility] [id number] [address] [place] [phone] Apr, [facility] [address] [facility] [id number] [address] [place] [id number] Apr, Major depressive disorder, r ecurrent, moderate F33.[address] [id number] [place] [address] [id number] Apr, Type II diabetes mellitus E11.9 ; Benign essential hypertension I10 ; Edema R60.9 and Renal insufficiency N28.9 [facility] [address] [facility] [id number] [address] [place] [id number] Mar, Major depressive disorder, r ecurrent, moderate F33.1 [place] [address] [facility] [id number] [address] [place] [phone] Mar, [facility] [address] [facility] [id number] [address] [place] [id number] Mar, Major depression F32.9 [facility] [id number] [place] [address] [id number] Mar, Morbid obesity E66.01 ; Benign essential hypertension I10 and Type II diabetes mellitus E11.9 [place] [address] [facility] [id number] [address] [place] [id number] Feb, Major depressive disorder, r ecurrent, moderate F33.1 [place] [address] [place] [id number] [address] [place] [id number] 24 Feb, 2015 Major depressive disorder, r ecurrent episode, in partial or unspecified remission 296.35 ; Anxiety state, unspecified 300.00 and Morbid obesity 278.01 [place] [address] [facility] [id number] [address] [place] [phone] Feb, [facility] [address] [place] [address] AVE [id number] [place] [address] [id number] 16 Feb, 2015 Vomiting 787.03 and Viral syndrome 079.[address] [id number] [address] [place] [id number] 15 Feb, 2015 Major depression, recurrent 296.30 ; Generalized anxiety disorder 300.02 and No condition on Drake II V71.09 [facility] [address] [place] [address] AVE [id number] [place] [address] [id number] 03 Feb, 2015 Skin tag 701.9 [place] [address] [facility] [id number] [address] [place] [phone] Feb, [place] [address] [facility] [id number] [address] [place] [id number] Jan, Depression, major, recurrent , moderate 296.[id number] [place] [address] [id number] Jan, Nausea and vomiting 787.01 ; Rib pain on right side 786.50 and Fall on or from sidewalk curb E880.1 [place] [address] [facility] [id number] [address] [place] [id number] Jan, [facility] [address] [facility] [id number] [address] [place] [id number] Jan, Major depressive disorder, r ecurrent episode, in partial or unspecified remission 296.35 and Anxiety state, unspecified 300.00 [facility] [address] [place] [address] AVE [id number], [place] [id number] Jan, [facility] [address] [place] [id number] [address] [place] [id number] Jan, Depression, major, recurrent , moderate 296.32 [place] [address] [id number] Jan, Major depression, recurrent 296.30 ; No condition on Drake II V71.09 and No condition on axis III V71.09 [facility] [address] [place], [place] [address] [id number], [place] [id number] Jan, Drug-induced nausea and vomiting 787.01 [place] [id number] [place] [phone] Jan, Depression, major, recurrent , moderate 296.32 [place] [id number] [address] [place] [phone] Dec, Depression, major, recurrent , moderate 296.32 [facility] [address] [place] [address] AVE [id number], [place] [id number] Dec, Morbid obesity 278.01 ; Metabolic syndro me 277.7 ; Hyperlipemia 272.4 ; Benign essential hypertension 401.1 ; Dietary counseling V65.3 ; Exercise counseling V65.41 and Inflamed skin tag 701.9 [place] [id number] [address] [place] [id number] Dec, Depression, major, recurrent , moderate 296.32 [place] [id number] [address] [place] [id number] Dec, [place] [address] [address] Dec, Major depression, recurrent 296.30 ; Anxiety, generalized 300.02 and No condition on Drake II V71.09 [place] [address] [place] [id number] Dec, Depression, major, recurrent , moderate 296.32 [place] [address] [id number] Dec, Major depressive disorder, r ecurrent episode, moderate 296.32 [place] [address] [place] [id number] Dec, Depression, major, recurrent , moderate 296.32 [place] [address] [place] [id number] Dec, Depression, major, recurrent , moderate 296.32 [place] [address] [address] Dec, Depression, major, recurrent , moderate 296.32 [place] [address] [id number] Dec, Depression, major, recurrent , moderate 296.32 [place] [address] [id number] Nov, Depression, major, recurrent , moderate 296.32 [place] [address] [address] Nov, Major depression 296.20 ; So cial phobia 300.23 and No condition on Drake II V71.09 [place] [address] [place] [id number] Nov, Depression, major, recurrent , moderate 296.32 [place] [address] [id number] Nov, Major depressive disorder, r ecurrent episode, moderate 296.32 and Generalized anxiety disorder 300.02 [place] [id number] [place] [id number] 09 Nov, 2014 Depression, major, recurrent , moderate 296.32 [facility] [address] [id number] [address] [place] [id number] 04 Nov, 2014 Depression, major, recurrent , moderate 296.32 [facility] [address] [id number] [address] [place] [id number] October, Generalized anxiety disorder 300.02 ; No condition on Drake II V71.09 and Major depressive disorder, recurrent 296.30 [facility] [address] [id number] [address] [place] [phone] Sep, [facility] [address] [id number] [address] [place] [phone] Sep, [facility] [address] [id number] [address] [place] [id number] Aug, [facility] [address] [id number] [address] [place] [id number] 24 Aug, 2014 [facility] [address] [id number] [address] [place] [id number] Aug, [facility] [address] [id number] [address] [place] [id number] Aug, [facility] [address] [id number] [address] [place] [id number] Aug, [facility] [address] [id number] [address] [place] [id number] Aug, [facility] [address] [id number] [address] [place] [id number] Aug, [facility] [address] [id number] [address] [place] [id number] Aug, [facility] [address] [id number] [address] [place] [id number] Aug, [facility] [address] [id number] [address] [place] [address] [place] [address] 13 Aug, 2014 [facility] [address] [id number] [address] [place] [address], [place] [address] 13 Aug, 2014 [facility] [address] [id number] [address] [place] [address], [place] [address] 13 Aug, 2014 [facility] [address] [id number] [address] [place] [address], [place] [address] 12 Aug, 2014 [facility] [place] [facility] [address] [id number] [address] [place] [address], [place] [address] 12 Aug, 2014 [facility] [address] [id number] [address] [place] [address], [place] [address] Aug, [facility] [address] [id number] [address] [place] [address], [place] [address] Aug, [facility] [address] [id number] [address] [place] [address], [place] [address] Aug, [facility] [address] [id number] [address] [place] [address], [place] [address] Aug, [facility] [address] [id number] [address] [place] [address], [place] [address] Jul, 2014 [facility] [address] [id number] [address] [place] [address], [place] [address] Jul, [facility] [place] [facility] [address] [id number] [address] [place] [address], [place] [address] Jul, 2014 [facility] [place] [facility] [address] [id number] [address] [place] [address], [place] [address] Jul, 2014 [facility] [place] [facility] [address] [id number] [address] [place] [address], [place] [address] Jul, 2014 [facility] [place] [facility] [address] [id number] [address] [place] [address], [place] [address] Jul, 2014 [facility] [place] [facility] [address] [id number] [address] [place] [address], [place] [address] Jun, [facility] [address] [id number] [address] [place] [address], [place] [address] Jun, [facility] [address] [id number] [address] [place] [address], [place] [address] Jun, [facility] [address] [id number] [address] [place] [address], [place] [address] Jun, [facility] [address] [id number] [address] [place] [address], [place] [address] Jun, [facility] [address] [id number] [address] [place] [address], [place] [address] Jun, [facility] [address] [id number] [address] [place] [address], [place] [address] Jun, [facility] [address] [id number] [address] [place] [address], [place] [address] Jun, [facility] [address] [id number] [address] [place] [address], [place] [address] Jun, [facility] [address] [id number] [address] [place] [address], [place] [address] Jun, [facility] [address] [id number] [address] [place] [id number] Jun, [facility] [address] [id number] [address] [place] [address], [place] [address] Jun, [facility] [address] [id number] [id number] Jun, [facility] [address] [id number] [address] [place] [address], [place] [address] Jun, [facility] [address] [id number] [address] [place] [address], [place] [address] Jun, [facility] [address] [id number] [address] [place] [address], [place] [address] Jun, [facility] [address] [id number] [address] [place] [id number] May, [facility] [address] [id number] [address] [place] [address], [place] [address] May, [facility] [address] [id number] [address] [place] [address], [place] [address] May, [facility] [address] [id number] [address] [place] [address], [place] [address] May, [facility] [address] [id number] [address] [place] [id number] Apr, [facility] [address] [id number] [address] [place] [address], [place] [address] Apr, [facility] [address] [id number] [address] [place] [address], [place] [address] Apr, [facility] [address] [id number] [address] [place] [address], [place] [address] Apr, [facility] [address] [id number] [address] [place] [id number] Apr, [facility] [address] [id number] [address] [place] [id number] Apr, [facility] [address] [id number] [address] [place] [address], [place] [address] Apr, [facility] [address] [id number] [address] [place] [id number] Apr, [facility] [address] [id number] [address] [place] [id number] Apr, [facility] [address] [id number] [address] [place] [address], [place] [address] Apr, [facility] [address] [id number] [address] [place] [id number] Apr, [facility] [address] [id number] [address] [place] [id number] Apr, [facility] [address] [id number] [address] [place] [address], [place] [address] Apr, [facility] [address] [id number] [address] [place] [address], [place] [address] Apr, [facility] [address] [address] [id number] [address] [place] [address], [place] [address] Apr, [facility] [address] [id number] [address] [place] [address], [place] [address] Apr, [facility] [address] [id number] [address] [place] [address], [place] [address] Apr, [facility] [address] [id number] [address] [place] [address], [place] [address] Apr, [facility] [address] [id number] [address] [place] [address], [place] [address] Apr, [facility] [address] [id number] [address] [place] [address], [place] [address] Apr, [facility] [address] [id number] [address] [place] [address], [place] [address] Mar, [facility] [address] [id number] [address] [place] [address], [place] [address] Mar, [facility] [address] [id number] [address] [place] [address], [place] [address] Mar, [facility] [address] [id number] [address] [place] [address], [place] [address] Mar, [facility] [address] [id number] [address] [place] [address], [place] [address] Mar, [facility] [address] [id number] [address] [place] [address], [place] [address] Mar, [facility] [address] [id number] [address] [place] [address], [place] [address] Mar, [facility] [address] [id number] [address] [place] [address], [place] [address] Mar, [facility] [address] [id number] [address] [place] [address], [place] [address] Mar, [facility] [address] [id number] [address] [place] [address], [place] [address] Mar, [facility] [address] [id number] [address] [place] [address], [place] [address] Feb, [facility] [address] [id number] [address] [place] [address], [place] [address] Feb, [facility] [address] [id number] [address] [place] [address], [place] [address] Feb, [facility] [address] [id number] [address] [place] [address], [place] [address] Feb, [facility] [address] [id number] [address] [place] [address], [place] [address] Jan, [facility] [address] [id number] [address] [place] [address], [place] [address] Jan, [facility] [address] [id number] [address] [place] [address], [place] [address] Jan, [facility] [address] [id number] [address] [place] [address], [place] [address] Jan, [facility] [address] [id number] [address] [place] [address], [place] [address] Jan, [facility] [address] [id number] [address] [place] [address], [place] [address] Jan, [facility] [address] [id number] [address] [place] [address], [place] [address] Dec, [facility] [address] [id number] [address] [place] [address], [place] [address] Dec, [facility] [address] [id number] [address] [place] [address], [place] [address] Nov, [facility] [address] [id number] [address] [place] [address], [place] [address] Nov, [facility] [address] [id number] [address] [place] [address], [place] [address] Nov, [facility] [address] [id number] [address] [place] [address], [place] [address] Nov, [facility] [address] [id number] [address] [place] [address], [place] [address] Nov, [facility] [address] [id number] [address] [place] [address], [place] [address] Nov, [facility] [address] [id number] [address] [place] [address], [place] [address] Sep, [facility] [address] [id number] [address] [place] [address], [place] [address] Sep, [facility] [address] [id number] [address] [place] [address], [place] [address] Sep, [facility] [address] [id number] [address] [place] [address], [place] [address] Sep, [facility] [address] [id number] [address] [place] [address], [place] [address] Aug, [facility] [address] [id number] [address] [place] [address], [place] [address] Aug, [facility] [address] [id number] [address] [place] [address], [place] [address] Jul, [facility] [address] [id number] [address] [place] [address], [place] [address] Jul, [facility] [address] [id number] [address] [place] [address], [place] [address] Jun, [facility] [address] [id number] [address] [place] [address], [place] [address] Jun, [facility] [address] [id number] [address] [place] [address], [place] [address] Jun, [facility] [address] [id number] [address] [place] [address], [place] [address] 16 Jun, 2013 [facility] [address] [id number] [address] [place] [address], [place] [address] May, [facility] [address] [id number] [address] [place] [address], [place] [address] May, [facility] [address] [id number] [address] [place] [address], [place] [address] May, [facility] [address] [id number] [address] [place] [address], [place] [address] May, [facility] [address] [id number] [address] [place] [address], [place] [address] May, [facility] [address] [id number] [address] [place] [address], [place] [address] May, [facility] [address] [id number] [address] [place] [address], [place] [address] Apr, [facility] [address] [id number] [address] [place] [address], [place] [address] Apr, [facility] [address] [id number] [address] [place] [address], [place] [address] Apr, [facility] [address] [id number] [address] [place] [address], [place] [address] Apr, [facility] [address] [id number] [address] [place] [address], [place] [address] Mar, [facility] [address] [id number] [address] [place] [address], [place] [address] Mar, [facility] [address] [id number] [address] [place] [address], [place] [address] Mar, [facility] [address] [id number] [address] [place] [address], [place] [address] Mar, [facility] [address] [id number] [address] [place] [address], [place] [address] Feb, [facility] [address] [id number] [id number] Jan, [facility] [address] [id number] [address] [place] [address] Jan, [facility] [address] [id number] [address] [place] [address] Dec, [facility] [address] [id number] [address] [place] [address] Dec, [facility] [address] [id number] [address] [place] [address] Dec, [facility] [address] [id number] [place] [id number] Dec, [facility] [address] [id number] [address] [place] [address] Nov, [facility] [address] [id number] [address] [place] [address] Nov, [facility] [address] [id number] [address] [place] [address] Nov, [facility] [address] [id number] [address] [place] [address] Nov, [facility] [address] [id number] [address] [place] [id number] Nov, [facility] [address] [id number] [address] [place] [address] October, [facility] [address] [id number] [address] [place] [id number] October, [facility] [address] [id number] [address] [place] [id number] Aug, [facility] [address] [id number] [address] [place] [id number] Nov, IMMUNIZATIONS No Known Immunizations SOCIAL HISTORY [...] 03/2016 Hospitalization History gastric sleeve Hospitalization History [facility] Trouble with left shoulder blade 08/2017
--- OUTSIDE RECORDS SUMMARY | 2019-11-29 09:10 | XMS REPORT ---
Author Author Curt Hughes [facility] Address [address], [place] [id number] Care Team Providers Care Tech Brazer Tester Name Role Phone Saul [facility] Unavailable PROBLEMS Type Condition ICD9-CM Code MSQ47-QF Code Onset Dates Condition S tatus SNOMED Code Problem Hyperlipemia E78.5 Active 8316739 4 Problem Insomnia G47.00 Active 051271314 Problem Morbid obesity E66.01 Active 34231 6002 Problem Benign essential hypertension I10 Active 2462805 Problem Renal insufficiency N28.9 Active 007969116 Problem Edema R60.9 Active 552181424 Problem Vitamin D deficiency E55.9 Active 52554652 Problem Mixed obsessional thoughts and acts F42.2 Active 77284049 Problem BMI 45.0-49.9, adult Z68.42 Active 203169590 Problem Other chronic pain G89.29 Active 8 4213688 Problem Severe episode of recurrent major depressive disorder, without psychotic features F33.2 Active 90626483 Problem Callous ulcer, limited to breakdown of skin L98.49 1 Active Problem Metabolic syndrome E88.81 Active 2 93903918 Problem DANIELA (generalized anxiety disorder) F41.1 Active 60262076 Problem Sciatica, right side M54.31 Active 091304802921759 Problem 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 Active 11170818 Problem Chronic fatigue R53.82 Active 8422 9001 ALLERGIES No Information ENCOUNTERS Encounter Location Date Diagnosis [facility] [address] [facility] [id number] [place] [id number] Jan, [facility] [address] [facility] [id number] [address] [place] [phone] Jan, [facility] [address] [facility] [id number] [address] [place] [phone] Jan, [address] [id number][place] [id number] Jan, Benign essential hypertension I10 [facility] [address] [facility] [address] [id number][place] [id number] Dec, Callous ulcer, limited to breakdown of s kin L98.491 and Morbid obesity E66.01 [facility] [address] [facility] [id number] [address] [place] [phone] Dec, [facility] [address] [facility] [id number] [address] [place] [phone] Dec, [facility] [address] [facility] [id number] [address] [place] [phone] Dec, [facility] [address] [facility] [id number] [address] [place] [phone] Dec, [facility] [address] [place] [id number] [address] [place] [phone] Dec, Severe episode of recurrent major depressive disorder, without psychotic features F33.2 [facility] [address] [facility] [id number] [address] [place] [phone] Dec, DANIELA (generalized anxiety dis order) F41.1 ; Severe episode of recurrent major depressive disorder, without psychotic features F33.2 ; Mixed obsessional thoughts and acts F42.2 and 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 [id number], [place] [id number] Dec, Morbid obesity E66.01 [facility] [address] [facility] [id number] [address] [place] [phone] Dec, [facility] [address] [facility] [id number] [address] [place] [phone] Dec, [address] [address] Nov, [facility] [address] [place] [address] AVE [id number][place] [id number] Nov, [facility] [address] [place] [id number] [address] [place] [phone] Nov, [facility] [address] [facility] [id number] [address] [place] [phone] Nov, [facility] [address] [facility] [id number] [address] [place] [phone] 13 Nov, 2018 DANIELA (generalized anxiety dis order) F41.1 ; Severe episode of recurrent major depressive disorder, without psychotic features F33.2 ; Mixed obsessional thoughts and acts F42.2 and 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 [facility] [address] [id number], [place] [id number] Nov, Morbid obesity E66.01 [facility] [address] [facility] [id number] [address] [place] [phone] Nov, [facility] [address] [facility] [id number] [address] [place] [phone] Nov, DANIELA (generalized anxiety dis order) F41.1 ; Mixed obsessional thoughts and acts F42.2 ; Severe episode of recurrent major depressive disorder, without psychotic features F33.2 and 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 [facility] [address] [id number], [place] [id number] October, Morbid obesity E66.01 [facility] [address] [id number], [place] [id number] October, Benign essential hypertension I10 and Mo rbid obesity E66.01 [facility] [address] [id number], [place] [id number] October, [facility] [address] [facility] [id number] [address] [place] [phone] October, Severe episode of recurrent major depressive disorder, without psychotic features F33.2 [facility] [address] [id number], [place] [id number] October, Morbid obesity E66.01 [facility] [address] [id number], [place] [id number] October, [facility] [address] [place] [address] October, Severe episode of recurrent major depressive disorder, without psychotic features F33.2 ; DANIELA (generalized anxiety disorder) F41.1 ; Mixed obsessional thoughts and acts F42.2 and 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 [place] [address] [id number], [place] [id number] October, Morbid obesity E66.01 [facility] [address] [place] [id number] [address] [place] [address] [id number] Sep, Dental examination Z01.[address] [id number], [place] [id number] Sep, [facility] [address] [place] [id number] [address] [place] [phone] Sep, Sore in mouth K13.79 and Mor bid obesity E66.01 [facility] [address] [place] [address] Sep, Dental examination Z01.20 [facility] [address] [place] [id number] [address] [place] [address] Sep, Anxiety disorder, unspecifie d F41.[address] [id number], [place] [id number] Sep, Mouth ulcer K12.[address] [id number], [place] [id number] Sep, Morbid obesity E66.[address] [id number], [place] [id number] Sep, Allergic rhinitis, unspecified seasonali ty, unspecified trigger J30.9 and Shortness of breath R06.[address] [place] [address] [id number], [place] [id number] Sep, 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 [place] [address] [id number], [place] [id number] Aug, Mouth abscess K12.2 ; Mouth ulcer K12.1 ; Bloating R14.0 and Morbid obesity E66.01 [facility] [id number], [place] [id number] Aug, [facility] [address] [place] [address] AVE [id number], [place] [id number] Aug, [facility] [place] [address] [place] [address] AVE [id number], [place] [id number] Jul, Major depressive disorder, recurrent, mo derate F33.1 ; Abscess of arm, left L02.414 ; BMI 45.0-49.9, adult Z68.42 and Morbid obesity E66.01 [facility] [address] [place] [address] AVE [id number], [place] [id number] Jul, [facility] [place] [address] [place] [address] AVE [id number], [place] [id number] Jul, [facility] [place] [address] [place] [address] AVE [id number], [place] [id number] Jun, Pain in right knee M25.561 and Other chr onic pain G89.29 [facility] [id number], [place] [id number] Jun, Benign essential hypertension I10 ; BMI [...] R45.4 [facility] [address] [facility] [id number] [address] [place] [phone] Jun, [facility] [id number], [place] [id number] Jun, Irritable mood R45.4 [facility] [address] [id number] [address] [place] [phone] May, [facility] [address] [facility] [id number] [address] [place] [phone] May, [facility] [address] [facility] [id number] [address] [place] [phone] May, Recurrent major depressive d isorder, in partial remission F33.41 ; Mixed obsessional thoughts and acts F42.2 ; 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 and BMI 45.0-49.9, adult Z68.42 [facility] [address] [id number] [address] [place] [address] Apr, [facility] [address] [facility] [id number] [address] [place] [phone] Apr, [place] [address] [facility] [id number] [address] [place] [address] Apr, [facility] [address] [facility] [id number] [address] [place] [phone] Apr, [facility] [address] [facility] [id number] [address] [place] [phone] Mar, Mixed obsessional thoughts a nd acts F42.2 ; Recurrent major depressive disorder, in partial remission F33.41 ; DANIELA (generalized anxiety disorder) F41.1 and BMI 45.0-49.9, adult Z68.42 [facility] [address] [id number], [place] [id number] Mar, [facility] [address] [id number], [place] [id number] Mar, BMI 45.0-49.9, adult Z68.42 ; Instabilit y of right knee joint M25.361 and Rash R21 [facility] [address] [facility] [id number] [address] [place] [phone] Jan, Recurrent major depressive d isorder, in partial remission F33.41 ; Mixed obsessional thoughts and acts F42.2 and BMI 45.0-49.9, adult Z68.42 [facility] [address] [id number], [place] [id number] Jan, [facility] [address] [id number], [place] [id number] Jan, Benign essential hypertension I10 ; BMI 45.0-49.9, adult Z68.42 ; Metabolic syndrome E88.81 and Allergic rhinitis, unspecified seasonality, unspecified trigger J30.9 [facility] [address] [facility] [id number] [address] [place] [phone] Dec, DANIELA (generalized anxiety dis order) F41.1 and Depressive disorder, not elsewhere classified F32.9 [facility] [employer] [id number], [place] [id number] Dec, Recurrent major depressive disorder, in partial remission F33.41 [facility] [address] [id number], [place] [id number] Dec, [facility] [place] [address] [id number], [place] [id number] Nov, [facility] [place] [id number] [place] [address] [id number] Nov, Recurrent major depressive disorder, in partial remission F33.41 [facility] [address] [facility] [id number] [address] [place] [phone] Nov, Recurrent major depressive d isorder, in partial remission F33.41 ; Mixed obsessional thoughts and acts F42.2 ; DANIELA (generalized anxiety disorder) F41.1 and BMI 45.0-49.9, adult Z68.42 [facility] [address] [id number], [place] [id number] Nov, [facility] [employer] [id number], [place] [id number] Nov, Other conjunctivitis of both eyes H10.89 and Sciatica, right side M54.31 [facility] [address] [id number], [place] [id number] Nov, [facility] [address] [id number], [place] [id number] Nov, [facility] [address] [id number], [place] [id number] October, [facility] [address] [id number], [place] [id number] October, [place] [address] [facility] [id number] [place] [address] October, BMI 45.0-49.9, adult Z68.42 ; Mixed obsessional thoughts and acts F42.2 ; Recurrent major depressive disorder, in partial remission F33.41 and DANIELA (generalized anxiety disorder) F41.1 [facility] [address] [id number], [place] [id number] October, Benign essential hypertension I10 ; Morb id obesity E66.01 and BMI 45.0-49.9, adult Z68.42 [facility] [address] [id number], [place] [id number] Sep, [facility] [address] [id number], [place] [id number] Sep, [facility] [address] [id number], [place] [id number] Sep, [facility] [address] [id number], [place] [id number] Sep, Hospital discharge follow-up Z09 ; Aller gic rhinitis, unspecified seasonality, unspecified trigger J30.9 and Shortness of breath R06.02 [facility] [address] [id number], [place] [id number] Sep, Recurrent major depressive disorder, in partial remission F33.41 [facility] [address] [id number], [place] [id number] Aug, Irritable mood R45.4 [place] [address] [facility] [id number] [address] [place] [address] Aug, [place] [id number] [place] [address] [id number] Jul, Benign essential hypertension I10 ; Robert a R60.9 and Impacted cerumen of left ear H61.22 [place] [address] [facility] [id number] [address] [place] [address] Jul, Major depression F32.9 ; Rec urrent major depressive disorder, in partial remission F33.41 and Anxiety F41.9 [place] [address] [facility] [id number] [address] [place] [address] Jun, Major depression F32.9 ; Rec urrent major depressive disorder, in partial remission F33.41 and Anxiety F41.[address] [place] [address] [id number], [place] [id number] Jun, Major depression F32.9 ; Morbid obesity E66.01 ; Irritable mood R45.4 ; Hand weakness R29.898 and Vitamin D deficiency E55.[address] [place] [address] [id number], [place] [id number] Jun, [facility] [address] [id number], [place] [id number] May, Major depression F32.9 [place] [address] [facility] [id number] [address] [place] [address] May, Major depression F32.9 [facility] [address] [id number], [place] [id number] May, BMI 50.0-59.9, adult Z68.43 ; Major depr ession F32.9 ; Anxiety F41.9 ; Hypertrophic toenail L60.2 and Pain of left great toe M79.[address] [place] [address] [id number], [place] [id number] May, Recurrent major depressive disorder, in partial remission F33.41 [facility] [address] [facility] [id number] [address] [place] [address] Apr, [facility] [address] [id number], [place] [id number] Apr, [facility] [address] [facility] [id number] [address] [place] [address] Apr, Major depression F32.9 [facility] [address] [id number], [place] [id number] Apr, Severe episode of recurrent major depres sive disorder, without psychotic features F33.2 ; Anxiety F41.9 and Insomnia G47.00 [facility] [address] [id number], [place] [id number] Apr, [facility] [address] [facility] [id number] [address] [place] [address] Apr, [facility] [address] [id number], [place] [id number] Apr, [facility] [address] [id number], [place] [id number] Mar, [facility] [id number] [place] [address] [id number] Mar, Allergic conjunctivitis of both eyes H10 .13 [facility] [address] [facility] [id number] [address] [place] [address] Mar, Major depression F32.9 [facility] [address] [id number], [place] [id number] Mar, Metabolic syndrome E88.81 ; History of g astric bypass Z98.890 ; Benign essential hypertension I10 ; Allergic conjunctivitis of both eyes H10.13 and Morbid obesity E66.01 [facility] [address] [facility] [id number] [address] [place] [address] Mar, Major depression F32.9 [facility] [address] [id number], [place] [id number] Feb, [facility] [address] [facility] [id number] [address] [place] [address] Feb, Major depression F32.9 [facility] [address] [id number], [place] [id number] Feb, Subacute maxillary sinusitis J01.00 and Bronchitis J40 [facility] [address] [facility] [id number] [address] [place] [phone] Feb, Major depressive disorder, r ecurrent, moderate F33.1 [facility] [address] [id number], [place] [id number] Jan, [facility] [place] [address] [facility] [address] [id number] [place] [address] [id number] Jan, Acute non-recurrent maxillary sinusitis J01.00 and Skin tag L91.8 [facility] [place] [address] [facility] [address] [id number], [place] [id number] Jan, Cough R05 and Sinus congestion R09.81 [facility] [place] [address] [facility] [address] [id number], [place] [id number] Jan, [facility] [place] [address] [facility] [address] [id number] [place] [address] [id number] Jan, Benign essential hypertension I10 ; Hist ory of gastric bypass Z98.890 and Nausea and vomiting in adult R11.2 [place] [address] [place] [id number] [address] [place] [phone] Jan, Major depressive disorder, r ecurrent, moderate F33.1 [facility] [address] [facility] [id number] [address] [place] [address] Dec, Insomnia G47.00 ; Recurrent major depressive disorder, in partial remission F33.41 and Morbid obesity E66.01 [facility] [address] [id number], [place] [id number] Dec, [facility] [address] [id number], [place] [id number] Dec, Chronic bacterial conjunctivitis of left eye H10.[address] [id number], [place] [id number] Nov, [address] [id number], [place] [id number] Nov, Dental examination Z01.[address] [id number] [place] [address] [id number] Nov, Benign essential hypertension I10 ; Hist ory of gastric bypass Z98.890 and Nausea and vomiting in adult R11.2 [place] [address] [facility] [id number] [address] [place] [address] 13 Nov, 2016 Major depressive disorder, r ecurrent, moderate F33.1 ; Generalized anxiety disorder F41.1 and Insomnia due to other mental disorder F51.05 [place] [id number] [address] [place] [address] Nov, Recurrent major depressive d isorder, in partial remission F33.41 ; Insomnia G47.00 and Morbid obesity E66.01 [facility] [address] [id number] [place] [id number] October, Abscess of left arm L02.414 [facility] [address] [place] [id number] [address] [place] [address] October, Morbid obesity E66.01 ; Lida r depression F32.9 and Recurrent major depressive disorder, in partial remission F33.41 [address] [id number], [place] [id number] Sep, Benign essential hypertension I10 ; Morb id obesity E66.01 ; S/P gastric bypass Z98.84 ; Abscess L02.91 and Chronic bacterial conjunctivitis of left eye H10.[address] [id number], [place] [id number] 17 Sep, 2016 Dental examination Z01.20 [place] [address] [place] [id number] [address] [place] [address] Sep, Morbid obesity E66.01 ; Lida r depression F32.9 and Recurrent major depressive disorder, in partial remission F33.41 [facility] [address] [facility] [id number] [address] [place] [address] Jul, [facility] [address] [facility] [id number] [address] [place] [address] Jul, Major depressive disorder, r ecurrent, moderate F33.1 [place] [address] [facility] [id number] [address] [place] [phone] Jul, Major depressive disorder, r ecurrent, moderate F33.1 and Generalized anxiety disorder F41.[address] [place] [id number] [place] [address] [id number] Jul, Cough R05 [place] [address] [place] [id number] [place] [address] Jul, Morbid obesity E66.01 ; Lida r depression F32.9 and Recurrent major depressive disorder, in partial remission F33.41 [facility] [id number] [place] [address] [id number] Jul, [place] [id number] [place] [address] [id number] Jul, [place] [id number] [place] [address] [id number] Jul, Gastroenteritis K52.9 and Cough R[address] [id number] [place] [address] [id number] Jun, Acute bacterial conjunctivitis of left e ye H10.32 [place] [address] [address] [facility] [id number] [address] [place] [phone] Jun, [place] [address] [address] [facility] [id number] [address] [place] [id number] Jun, Recurrent major depressive d isorder, in partial remission F33.41 [place] [address] [address] [facility] [id number] [address] [place] [id number] May, Major depression F32.9 and M orbid obesity E66.01 [place] [address] [address] [facility] [id number] [address] [place] [phone] May, [facility] [id number] [place] [address] [id number] May, Thrush B37.0 [place] [address] [address] [facility] [id number] [address] [place] [id number] Apr, Major depressive disorder, r ecurrent, moderate F33.1 [place] [address] [address] [facility] [id number] [address] [place] [id number] Apr, Insomnia G47.00 ; Major depr ession F32.9 and Recurrent major depressive disorder, in partial remission F33.41 [place] [address] [address] STREET00565 [address] [place] [address] Apr, [place] [address] [address] [facility] [id number] [address] [place] [address] Apr, Major depression F32.9 and R ecurrent major depressive disorder, in partial remission F33.[address] [id number], [place] [id number] Mar, Benign essential hypertension I10 ; Morb id obesity E66.01 ; Impacted cerumen of both ears H61.23 ; Laceration of finger of right hand, initial encounter S61.219A and Encounter for immunization Z23 [place] [address] [address] [facility] [id number] [address] [place] [address] Mar, [place] [address] [facility] [id number] [address] [place] [address] Mar, [place] [address] [address] [facility] [id number] [address] [place] [address] Mar, [place] [id number] [place] [address] [id number] Feb, Nausea R11.0 ; Blood in the stool K92.1 and Benign essential hypertension I10 [facility] [address] [facility] [id number] [address] [place] [address] Feb, Major depression F32.9 and R ecurrent major depressive disorder, in partial remission F33.41 [facility] [address] [id number], [place] [id number] Feb, [facility] [address] [address] [id number][place] [id number] Feb, Recurrent major depressive disorder, in partial remission F33.41 [facility] [address] [address] [id number], [place] [id number] Jan, [facility] [address] [address] [id number], [place] [id number] Jan, Benign essential hypertension I10 ; Robert a R60.9 and Hyperlipidemia, unspecified hyperlipidemia type E78.5 [facility] [address] [address] [id number], [place] [id number] Jan, Recurrent major depressive disorder, in partial remission F33.41 [facility] [address] [id number] [place] [id number] Jan, [facility] [address] [id number], [place] [id number] Jan, [facility] [address] [id number], [place] [id number] Jan, [facility] [address] [facility] [id number] [address] [place] [address] Jan, [facility] [address] [facility] [id number] [address] [place] [address] Dec, [facility] [address] [facility] [id number] [address] [place] [address] Nov, [facility] [address] [facility] [id number] [address] [place] [address] Nov, Major depression F32.9 [facility] [address] [facility] [id number] [address] [place] [address] Nov, [facility] [address] [facility] [id number] [address] [place] [address] Nov, [place] [address] [address] [facility] [id number] [address] [place] [address] Nov, Major depressive disorder, r ecurrent episode, mild F33.0 and Anxiety F41.9 [facility] [address] [id number], [place] [id number] Nov, [place] [id number] [place] [address] [id number] October, Left elbow pain M25.522 and Other season al allergic rhinitis J30.[id number] [place] [address] [id number] October, [place] [address] [address] [place] [id number] [address] [place] [address] October, Major depressive disorder, r ecurrent, moderate F33.1 [place] [address] [facility] [id number] [address] [place] [address] October, Major depression F32.9 [place] [address] [place] [id number] [address] [place] [address] Sep, Ehrenberg or callus L84 and Onych omycosis B35.1 [place] [address] [facility] [id number] [address] [place] [address] Sep, Major depressive disorder, r ecurrent, moderate F33.1 [place] [address] [facility] [id number] [address] [place] [address] Sep, Major depression F32.9 [place] [address] [facility] [id number] [address] [place] [address] Sep, Moderate episode of recurren t major depressive disorder F33.[address] [place] [address] [id number], [place] [id number] Sep, Muscle strain T14.8 [facility] [address] [facility] [id number] [address] [place] [address] Aug, Major depression F32.9 [facility] [address] [facility] [id number] [address] [place] [address] Aug, Major depression F32.9 [facility] [address] [facility] [id number] [address] [place] [address] Jul, Morbid obesity E66.01 and Ma cora depression F32.9 [facility] [address] [facility] [id number] [address] [place] [address] Jul, Depression, major, recurrent , moderate F33.[address] [place] [address] [id number], [place] [id number] Jul, [facility] [address] [facility] [id number] [address] [place] [address] Jul, [facility] [address] [facility] [id number] [address] [place] [address] Jul, Major depression F32.9 and M orbid obesity E66.01 [facility] [id number] [place] [address] [id number] Jul, Type II diabetes mellitus E11.9 ; Callus of foot L84 ; Benign essential hypertension I10 and Renal insufficiency N28.9 [facility] [address] [facility] [id number] [address] [place] [address] 09 Jul, 2015 Depression, major, recurrent , moderate F33.1 [facility] [address] [facility] [id number] [address] [place] [address] 05 Jul, 2015 Major depression F32.9 [facility] [address] [facility] [id number] [address] [place] [address] Jul, [facility] [address] [place] [id number] [address] [place] [address] Jun, Major depression F32.9 [place] [address] [facility] [id number] [address] [place] [address] Jun, Major depressive disorder, r ecurrent, moderate F33.1 [place] [address] [facility] [id number] [address] [place] [address] Jun, [place] [address] [facility] [id number] [address] [place] [address] Jun, Major depressive disorder, r ecurrent, moderate F33.1 and Major depression F32.[id number] [place] [address] [id number] Jun, Type II diabetes mellitus E11.9 [place] [address] [facility] [id number] [address] [place] [address] Jun, Depression, major, recurrent , moderate F33.1 [place] [address] [facility] [id number] [address] [place] [address] May, Major depressive disorder, r ecurrent, moderate F33.1 [place] [address] [facility] [id number] [address] [place] [address] May, [place] [address] [id number], [place] [id number] May, Edema R60.9 [place] [address] [facility] [id number] [address] [place] [address] 17 May, 2015 Insomnia G47.00 and Major de pression F32.[address] [place] [address] [id number][place] [id number] 15 May, 2015 Morbid obesity E66.01 ; Edema R60.9 ; Sh ortness of breath R06.02 ; Benign essential hypertension I10 and Renal insufficiency N28.[address] [place] [address] [id number][place] [id number] 14 May, 2015 Hyperlipemia 272.4 and Renal insufficien cy N28.9 [place] [address] [facility] [id number] [address] [place] [address] Apr, Major depression F32.9 [facility] [address] [facility] [id number] [address] [place] [address] Apr, [facility] 301 [address] [facility] [id number] [address] [place] [address] Apr, Major depressive disorder, r ecurrent, moderate F33.1 [facility] [address] [id number][place] [id number] Apr, Type II diabetes mellitus E11.9 ; Benign essential hypertension I10 ; Edema R60.9 and Renal insufficiency N28.9 [place] [address] [facility] [id number] [address] [place] [address] Mar, Major depressive disorder, r ecurrent, moderate F33.1 [place] [address] [facility] [id number] [address] [place] [address] Mar, [place] [address] [facility] [id number] [address] [place] [address] Mar, Major depression F32.9 [facility] [id number] [place] [address] [id number] Mar, Morbid obesity E66.01 ; Benign essential hypertension I10 and Type II diabetes mellitus E11.9 [place] [address] [facility] [id number] [address] [place] [address] Feb, Major depressive disorder, r ecurrent, moderate F33.1 [place] [address] [facility] [id number] [address] [place] [address] Feb, Major depressive disorder, r ecurrent episode, in partial or unspecified remission 296.35 ; Anxiety state, unspecified 300.00 and Morbid obesity 278.01 [place] [address] [facility] [id number] [address] [place] [address] Feb, [facility] [id number] [place] [address] [id number] 16 Feb, 2015 Vomiting 787.03 and Viral syndrome 079.9 9 [place] [address] [place] [id number] [address] [place] [phone] 15 Feb, 2015 Major depression, recurrent 296.30 ; Generalized anxiety disorder 300.02 and No condition on [place] V71.[address] [id number], [place] [id number] 03 Feb, 2015 Skin tag 701.9 [place] [address] [place] [id number] [address] [place] [address] Feb, [place] [address] [place] [id number] [address] [place] [address] Jan, Depression, major, recurrent , moderate 296.[address] [id number], [place] [id number] Jan, Nausea and vomiting 787.01 ; Rib pain on right side 786.50 and Fall on or from sidewalk curb E880.1 [place] [address] [facility] [id number] [address] [place] [address] Jan, [place] [address] [place] [id number] [address] [place] [address] Jan, Major depressive disorder, r ecurrent episode, in partial or unspecified remission 296.35 and Anxiety state, unspecified 300.[address] [id number], [place] [id number] Jan, [facility] [address] [facility] [id number] [address] [place] [address] Jan, Depression, major, recurrent , moderate 296.32 [place] [address] [place] [id number] [address] [place] [address] Jan, Major depression, recurrent 296.30 ; No condition on [place] V71.09 and No condition on axis III V71.[address] [id number], [place] [id number] Jan, Drug-induced nausea and vomiting 787.01 [place] [id number] [address] [place] [address] Jan, Depression, major, recurrent , moderate 296.32 [place] [id number] [address] [place] [address] Dec, Depression, major, recurrent , moderate 296.[address] [id number] [place] [address] [id number] Dec, Morbid obesity 278.01 ; Metabolic syndro me 277.7 ; Hyperlipemia 272.4 ; Benign essential hypertension 401.1 ; Dietary counseling V65.3 ; Exercise counseling V65.41 and Inflamed skin tag 701.9 [place] [id number] [address] [place] [address] Dec, Depression, major, recurrent , moderate 296.[address] [address] Dec, [address] [address] Dec, Major depression, recurrent 296.30 ; Anxiety, generalized 300.02 and No condition on [place] V71.09 [place] [id number] [address] [place] [address] Dec, Depression, major, recurrent , moderate 296.32 [place] [id number] [address] [place] [address] Dec, Major depressive disorder, r ecurrent episode, moderate 296.32 [place] [id number] [address] [place] [address] Dec, Depression, major, recurrent , moderate 296.32 [place] [id number] [address] [place] [address] Dec, Depression, major, recurrent , moderate 296.[address] [address] Dec, Depression, major, recurrent , moderate 296.32 [facility] 301 N [place] [id number] [address] [place] [address] Dec, Depression, major, recurrent , moderate 296.32 [facility] 301 N [place] [id number] [address] [place] [address] Nov, Depression, major, recurrent , moderate 296.32 [facility] [address] [address] Nov, Major depression 296.20 ; So cial phobia 300.23 and No condition on [place] V71.09 [place] [address] [address] Nov, Depression, major, recurrent , moderate 296.32 [place] [address] [address] Nov, Major depressive disorder, r ecurrent episode, moderate 296.32 and Generalized anxiety disorder 300.02 [facility] 301 N [place] [id number] [address] [place] [address] Nov, Depression, major, recurrent , moderate 296.32 [place] [address] [address] Nov, Depression, major, recurrent , moderate 296.32 [place] [address] [address] October, Generalized anxiety disorder 300.02 ; No condition on [place] V71.09 and Major depressive disorder, recurrent 296.30 [place] [address] [place] [id number] [address] [place] [address] Sep, [place] [address] [id number] Sep, [facility] 301 N [place] [id number] [address] [place] [address] Aug, [facility] [address] [id number] [facility] [place] [address] 24 Aug, 2014 [facility] [address] [id number] [facility] [place] [address] 23 Aug, 2014 [facility] [address] [id number] [facility] [place] [address] 23 Aug, 2014 [facility] [address] [id number] [address] [place] [address], [place] [address] 20 Aug, 2014 [facility] [address] [id number] [facility] [place] [address] 20 Aug, 2014 [facility] [address] [id number] [address] [place] [address], [place] [address] 20 Aug, 2014 [facility] [address] [id number] [address] [place] [address], [place] [address] 20 Aug, 2014 [facility] [address] [id number] [address] [place] [address], [place] [address] 13 Aug, 2014 [facility] [address] [id number] [address] [place] [address], [place] [address] 13 Aug, 2014 [facility] [address] [id number] [address] [place] [address], [place] [address] 13 Aug, 2014 [facility] [address] [id number] [address] [place] [address], [place] [address] 13 Aug, 2014 [facility] [address] [id number] [address] [place] [address], [place] [address] 12 Aug, 2014 [facility] [address] [id number] [address] [place] [address], [place] [address] 12 Aug, 2014 [facility] [address] [id number] [address] [place] [address], [place] [address] 10 Aug, 2014 [facility] [address] [id number] [address] [place] [address], [place] [address] 10 Aug, 2014 [facility] [address] [id number] [address] [place] [address], [place] [address] Aug, [facility] [address] [id number] [address] [place] [address], [place] [address] Aug, [facility] [address] [id number] [address] [place] [address], [place] [address] Jul, [facility] [address] [id number] [address] [place] [address], [place] [address] Jul, [facility] [address] [id number] [address] [place] [address], [place] [address] Jul, [facility] [address] [id number] [address] [place] [address], [place] [address] Jul, [facility] [address] [id number] [address] [place] [address], [place] [address] Jul, [facility] [address] [id number] [address] [place] [address], [place] [address] Jul, [facility] [address] [id number] [address] [place] [address], [place] [address] Jun, [facility] [address] [id number] [address] [place] [address], [place] [address] Jun, [facility] [address] [id number] [address] [place] [address], [place] [address] Jun, [facility] [address] [id number] [address] [place] [address], [place] [address] Jun, [facility] [address] [id number] [address] [place] [address], [place] [address] Jun, [facility] [address] [id number] [address] [place] [address], [place] [address] Jun, [facility] [address] [id number] [address] [place] [address], [place] [address] Jun, [facility] [address] [id number] [address] [place] [address], [place] [address] Jun, [facility] [address] [id number] [address] [place] [address], [place] [address] Jun, [facility] [address] [id number] [address] [place] [address], [place] [address] Jun, [facility] [address] [id number] [address] [place] [address], [place] [address] Jun, [facility] [address] [id number] [address] [place] [address], [place] [address] Jun, [facility] [address] [id number] [place] [id number] Jun, [facility] [address] [id number] [address] [place] [address], [place] [address] Jun, [facility] [address] [id number] [address] [place] [address], [place] [address] Jun, [facility] [address] [id number] [address] [place] [address], [place] [address] Jun, [facility] [address] [id number] [address] [place] [address], [place] [address] May, [facility] [address] [id number] [address] [place] [address], [place] [address] May, [facility] [address] [id number] [address] [place] [address], [place] [address] May, [facility] [address] [id number] [address] [place] [address], [place] [address] May, [facility] [address] [id number] [address] [place] [address], [place] [address] Apr, [facility] [address] [id number] [address] [place] [address], [place] [address] Apr, [facility] [address] [id number] [address] [place] [address], [place] [address] Apr, [facility] [address] [id number] [address] [place] [address], [place] [address] Apr, [facility] [address] [id number] [address] [place] [address], [place] [address] Apr, [facility] [address] [id number] [address] [place] [address], [place] [address] Apr, [facility] [address] [id number] [address] [place] [address], [place] [address] Apr, [facility] [address] [id number] [address] [place] [address], [place] [address] Apr, [facility] [address] [id number] [address] [place] [address], [place] [address] Apr, [facility] [address] [id number] [address] [place] [address], [place] [address] Apr, [facility] [address] [id number] [address] [place] [address], [place] [address] Apr, [facility] [address] [id number] [address] [place] [address], [place] [address] Apr, [facility] [address] [id number] [address] [place] [address], [place] [address] Apr, [facility] [address] [id number] [address] [place] [address], [place] [address] Apr, [facility] [address] [id number] [address] [place] [address], [place] [address] Apr, [facility] [address] [id number] [address] [place] [address], [place] [address] Apr, [facility] [address] [id number] [address] [place] [address], [place] [address] Apr, [facility] [address] [id number] [address] [place] [address], [place] [address] Apr, [facility] [address] [id number] [address] [place] [address], [place] [address] Apr, [facility] [address] [id number] [address] [place] [address], [place] [address] Apr, [facility] [address] [id number] [address] [place] [address], [place] [address] Mar, [facility] [address] [id number] [address] [place] [address], [place] [address] Mar, [facility] [address] [id number] [address] [place] [address], [place] [address] Mar, [facility] [address] [id number] [address] [place] [address], [place] [address] Mar, [facility] [address] [id number] [address] [place] [address], [place] [address] Mar, [facility] [address] [id number] [address] [place] [address], [place] [address] Mar, [facility] [address] [id number] [address] [place] [address], [place] [address] Mar, [facility] [address] [id number] [address] [place] [address], [place] [address] Mar, [facility] [address] [id number] [address] [place] [address], [place] [address] Mar, [facility] [address] [id number] [address] [place] [address], [place] [address] Mar, [facility] [address] [id number] [address] [place] [address], [place] [address] Feb, [facility] [address] [id number] [address] [place] [address] Feb, [facility] [address] [id number] [address] [place] [address], [place] [address] Feb, [facility] [address] [id number] [address] [place] [address], [place] [address] Feb, [facility] [address] [id number] [address] [place] [address], [place] [address] Jan, [facility] [address] [id number] [facility] [place] [address] Jan, [facility] [address] [id number] [address] [place] [address] Jan, [facility] [address] [id number] [address] [place] [address], [place] [address] Jan, [facility] [address] [id number] [address] [place] [address], [place] [address] Jan, [facility] [address] [id number] [address] [place] [address], [place] [address] Jan, [facility] [address] [id number] [address] [place] [address], [place] [address] Dec, [facility] [address] [id number] [address] [place] [address], [place] [address] Dec, [facility] [address] [id number] [address] [place] [address], [place] [address] Nov, [facility] [address] [id number] [address] [place] [address], [place] [address] Nov, [facility] [address] [id number] [address] [place] [address], [place] [address] Nov, [facility] [address] [id number] [address] [place] [address], [place] [address] Nov, [facility] [address] [id number] [address] [place] [address], [place] [address] Nov, [facility] [address] [id number] [address] [place] [address], [place] [address] Nov, [facility] [address] [id number] [address] [place] [address], [place] [address] Sep, [facility] [address] [id number] [address] [place] [address], [place] [address] Sep, [facility] [address] [id number] [address] [place] [address], [place] [address] Sep, [facility] [address] [id number] [address] [place] [address], [place] [address] Sep, [facility] [address] [id number] [address] [place] [address], [place] [address] Aug, [facility] [address] [id number] [address] [place] [address], [place] [address] Aug, [facility] [address] [id number] [address] [place] [address], [place] [address] Jul, [facility] [address] [id number] [address] [place] [address], [place] [address] Jul, [facility] [address] [id number] [address] [place] [address], [place] [address] Jun, [facility] [address] [id number] [address] [place] [address], [place] [address] Jun, [facility] [address] [id number] [address] [place] [address], [place] [address] Jun, [facility] [address] [id number] [address] [place] [address], [place] [address] Jun, [facility] [address] [id number] [address] [place] [address], [place] [address] May, [facility] [address] [id number] [address] [place] [address], [place] [address] May, [facility] [address] [id number] [address] [place] [address], [place] [address] May, [facility] [address] [id number] [address] [place] [address], [place] [address] May, [facility] [address] [id number] [address] [place] [address], [place] [address] May, [facility] [address] [id number] [address] [place] [address], [place] [address] May, [facility] [address] [id number] [address] [place] [address], [place] [address] Apr, [facility] [address] [id number] [address] [place] [address], [place] [address] Apr, [facility] [address] [id number] [address] [place] [address], [place] [address] Apr, [facility] [address] [id number] [address] [place] [address], [place] [address] Apr, [facility] [address] [id number] [address] [place] [address], [place] [address] Mar, [facility] [address] [id number] [address] [place] [address], [place] [address] Mar, [facility] [address] [id number] [address] [place] [address], [place] [address] Mar, [facility] [address] [id number] [address] [place] [address], [place] [address] Mar, [facility] [address] [id number] [address] [place] [address], [place] [address] Feb, [facility] [address] [facility] [address] [id number] [id number] Jan, [facility] [address] [id number] [address] [place] [address], [place] [address] Jan, [facility] [address] [id number] [address] [place] [address], [place] [address] Dec, [facility] [address] [id number] [address] [place] [address], [place] [address] Dec, [facility] [address] [id number] [address] [place] [address], [place] [address] Dec, [facility] [address] [id number] [place] [id number] Dec, [facility] [address] [id number] [address] [place] [address], [place] [address] Nov, [facility] [address] [id number] [address] [place] [address] 14 Nov, 2012 [facility] [address] [id number] [address] [place] [address] 12 Nov, 2012 [facility] [address] [id number] [address] [place] [address] 11 Nov, 2012 [facility] [address] [id number] [address] [place] [address] Nov, [facility] [address] [id number] [address] [place] [address] October, [facility] [address] [id number] [address] [place] [address] October, [facility] [address] [id number] [address] [place] [address] Aug, [facility] [address] [facility] [id number] [address] [place] [address] 13 Nov, 2011 IMMUNIZATIONS No Known Immunizations SOCIAL HISTORY Never Assessed REASON FOR VISIT PLAN OF CARE VITAL SIGNS MEDICATIONS Unknown Medications RESULTS No Results PROCEDURES Procedure Date Ordered Result Body Site CARE COORDINATION Mar 12, 2014 COMPREHENSIVE CARE MANAGEMENT Mar 12, 2014 INSTRUCTIONS MEDICATIONS ADMINISTERED No Known Medications [...] Hospitalization History gastric sleeve Hospitalization History [facility] Trouble with left shoulder blade 08/2017
--- OUTSIDE RECORDS SUMMARY | 2019-11-29 09:11 | XMS REPORT ---
Author Author Curt DIAZ 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 Name Role Phone JOE CHRIS Unavailable PROBLEMS Type Condition ICD9-CM Code NFN54-LN Code Onset Dates Condition S tatus SNOMED Code Problem Hyperlipemia E78.5 Active 5429308 4 Problem Insomnia G47.00 Active 362320237 Problem Morbid obesity E66.01 Active 31133 6002 Problem Benign essential hypertension I10 Active 2796957 Problem Renal insufficiency N28.9 Active 865668279 Problem Edema R60.9 Active 579917198 Problem Vitamin D deficiency E55.9 Active 75943523 Problem Mixed obsessional thoughts and acts F42.2 Active 19934171 Problem BMI 45.0-49.9, adult Z68.42 Active 516005999 Problem Other chronic pain G89.29 Active 8 0319016 Problem Severe episode of recurrent major depressive disorder, without psychotic features F33.2 Active 89638391 Problem Callous ulcer, limited to breakdown of skin L98.49 1 Active Problem Metabolic syndrome E88.81 Active 2 29341996 Problem DANIELA (generalized anxiety disorder) F41.1 Active 98801607 Problem Sciatica, right side M54.31 Active [id number] Problem 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 Active 23196099 Problem Chronic fatigue R53.82 Active 8422 9001 ALLERGIES No Information ENCOUNTERS Encounter Location Date Diagnosis [facility] [address] [facility] [address] [address] [id number] [place] [id number] Jan, [facility] [address] [facility] [id number] 100[address] [place] [address] Jan, [facility] [address] [facility] [id number] [id number] Jan, Benign essential hypertension I10 [facility] [address] [facility] [address] [id number][place] [id number] Dec, Callous ulcer, limited to breakdown of s kin L98.491 and Morbid obesity E66.01 [facility] [address] [facility] [id number] [address] [place] [address] Dec, [facility] [address] [facility] [id number] [address] [place] [address] Dec, [facility] [address] [facility] [id number] [address] [place] [id number] Dec, [facility] [address] [facility] [id number] [address] [place] [address] Dec, [facility] [address] [facility] [id number] [address] [place] [address] Dec, Severe episode of recurrent major depressive disorder, without psychotic features F33.2 [facility] [address] [facility] [id number] [address] [place] [address] Dec, DANIELA (generalized anxiety dis order) F41.1 ; Severe episode of recurrent major depressive disorder, without psychotic features F33.2 ; Mixed obsessional thoughts and acts F42.2 and 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 [facility] [address] [facility] [id number][place] [id number] Dec, Morbid obesity E66.01 [facility] [address] [facility] [id number] [address] [place] [address] Dec, [facility] [address] [facility] [id number] [address] [place] [address] Dec, [address] [address] Nov, [facility] [address] [facility] [id number][place] [id number] Nov, [facility] [address] [facility] [id number] [address] [place] [address] Nov, [facility] [address] [facility] [id number] [address] [place] [phone] Nov, [facility] [address] [facility] [id number] [address] [place] [address] Nov, DANIELA (generalized anxiety dis order) F41.1 ; Severe episode of recurrent major depressive disorder, without psychotic features F33.2 ; Mixed obsessional thoughts and acts F42.2 and 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 [facility] [id number] [place] [address] [id number] Nov, Morbid obesity E66.01 [facility] [address] [facility] [id number] [address] [place] [phone] Nov, [place] [address] [facility] [id number] [address] [place] [address] Nov, DANIELA (generalized anxiety dis order) F41.1 ; Mixed obsessional thoughts and acts F42.2 ; Severe episode of recurrent major depressive disorder, without psychotic features F33.2 and 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 [facility] [address] [id number][place] [id number] October, Morbid obesity E66.01 [facility] [address] [id number][place] [id number] October, Benign essential hypertension I10 and Mo rbid obesity E66.01 [facility] [address] [id number], [place] [id number] October, [facility] [address] [facility] [id number] [address] [place] [address] October, Severe episode of recurrent major depressive disorder, without psychotic features F33.2 [facility] [address] [id number], [place] [id number] October, Morbid obesity E66.01 [facility] [address] [id number], [place] [id number] October, [facility] [address] [facility] [id number] [address] [place] [address] October, Severe episode of recurrent major depressive disorder, without psychotic features F33.2 ; DANIELA (generalized anxiety disorder) F41.1 ; Mixed obsessional thoughts and acts F42.2 and 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 [id number], [place] [id number] October, Morbid obesity E66.01 [facility] [address] [place] [id number] [address] [place] [address] [id number] Sep, Dental examination Z01.[address] [id number] [place] [address] [id number] Sep, [facility] [address] [place] [id number] [address] [place] [address] Sep, Sore in mouth K13.79 and Mor bid obesity E66.01 [facility] [address] [place] [id number] [address] [place] [address] Sep, Dental examination Z01.20 [facility] [address] [place] [address] Sep, Anxiety disorder, unspecifie d F41.[address] [id number], [place] [id number] Sep, Mouth ulcer K12.[address] [id number], [place] [id number] Sep, Morbid obesity E66.[address] [id number] [place] [address] [id number] Sep, Allergic rhinitis, unspecified seasonali ty, unspecified trigger J30.9 and Shortness of breath R06.[address] [id number] [place] [address] [id number] Sep, 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 [id number] [place] [address] [id number] Aug, Mouth abscess K12.2 ; Mouth ulcer K12.1 ; Bloating R14.0 and Morbid obesity E66.01 [facility] [address] [id number], [place] [id number] Aug, [facility] [address] [id number], [place] [id number] Aug, [facility] [address] [place] [address] AVE [id number], [place] [id number] Jul, Major depressive disorder, recurrent, mo derate F33.1 ; Abscess of arm, left L02.414 ; BMI 45.0-49.9, adult Z68.42 and Morbid obesity E66.01 [facility] Jama [facility] [address] [id number], [place] [id number] Jul, [facility] [address] [place] [address] AVE [id number], [place] [id number] Jul, [facility] [id number], [place] [id number] Jun, Pain in right knee M25.561 and Other chr onic pain G89.29 [facility] [id number], [place] [id number] Jun, Benign essential hypertension I10 ; BMI 45.0-49.9, adult Z68.42 ; Morbid obesity E66.01 ; Vitamin D deficiency E55.9 ; Insomnia G47.00 ; 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 ; Edema R60.9 ; Recurrent major depressive disorder, in partial remission F33.41 ; Chronic fatigue R53.82 ; Acute pain of right knee M25.561 ; Metabolic syndrome E88.81 and Irritable mood R45.4 [facility] [address] [facility] [id number] [address] [place] [address] Jun, [facility] [id number], [place] [id number] Jun, Irritable mood R45.4 [facility] [address] [facility] [id number] [address] [place] [address] May, [facility] [address] [facility] [id number] [address] [place] [address] May, [facility] [address] [facility] [id number] [address] [place] [address] May, Recurrent major depressive d isorder, in partial remission F33.41 ; Mixed obsessional thoughts and acts F42.2 ; 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 and BMI 45.0-49.9, adult Z68.42 [facility] [address] [facility] [id number] [address] [place] [address] Apr, [facility] [address] [facility] [id number] [address] [place] [address] Apr, [place] [address] [place] [id number] [address] [place] [address] Apr, [place] [address] [place] [id number] [address] [place] [address] Apr, [place] [address] [place] [id number] [address] [place] [address] Mar, Mixed obsessional thoughts a nd acts F42.2 ; Recurrent major depressive disorder, in partial remission F33.41 ; DANIELA (generalized anxiety disorder) F41.1 and BMI 45.0-49.9, adult Z68.[address] [place] [address] [id number], [place] [id number] Mar, [place] [address] [id number], [place] [id number] Mar, BMI 45.0-49.9, adult Z68.42 ; Instabilit y of right knee joint M25.361 and Rash R21 [place] [address] [facility] [id number] [address] [place] [address] Jan, Recurrent major depressive d isorder, in partial remission F33.41 ; Mixed obsessional thoughts and acts F42.2 and BMI 45.0-49.9, adult Z68.42 [facility] [address] [id number], [place] [id number] Jan, [facility] [address] [id number], [place] [id number] Jan, Benign essential hypertension I10 ; BMI 45.0-49.9, adult Z68.42 ; Metabolic syndrome E88.81 and Allergic rhinitis, unspecified seasonality, unspecified trigger J30.9 [facility] [address] [facility] [id number] [address] [place] [address] Dec, DANIELA (generalized anxiety dis order) F41.1 and Depressive disorder, not elsewhere classified F32.9 [facility] [address] [id number], [place] [id number] Dec, Recurrent major depressive disorder, in partial remission F33.41 [facility] [address] [id number], [place] [id number] Dec, [facility] [address] [id number], [place] [id number] Nov, [facility] [address] [id number], [place] [id number] Nov, Recurrent major depressive disorder, in partial remission F33.41 [place] [address] [facility] [id number] [address] [place] [address] Nov, Recurrent major depressive d isorder, in partial remission F33.41 ; Mixed obsessional thoughts and acts F42.2 ; DANIELA (generalized anxiety disorder) F41.1 and BMI 45.0-49.9, adult Z68.42 [facility] [address] [id number], [place] [id number] Nov, [facility] [address] [id number], [place] [id number] Nov, Other conjunctivitis of both eyes H10.89 and Sciatica, right side M54.31 [facility] [address] [id number], [place] [id number] Nov, [facility] [address] [id number], [place] [id number] Nov, [facility] [address] [id number], [place] [id number] October, [facility] [address] [id number], [place] [id number] October, [facility] [address] [facility] [id number] [address] [place] [address] October, BMI 45.0-49.9, adult Z68.42 ; Mixed obsessional thoughts and acts F42.2 ; Recurrent major depressive disorder, in partial remission F33.41 and DANIELA (generalized anxiety disorder) F41.1 [facility] [address] [id number], [place] [id number] October, Benign essential hypertension I10 ; Morb id obesity E66.01 and BMI 45.0-49.9, adult Z68.42 [facility] [address] [id number], [place] [id number] Sep, [facility] [address] [id number], [place] [id number] Sep, [facility] [address] [id number], [place] [id number] Sep, [facility] [address] [id number], [place] [id number] Sep, Hospital discharge follow-up Z09 ; Aller gic rhinitis, unspecified seasonality, unspecified trigger J30.9 and Shortness of breath R06.02 [facility] [address] [id number], [place] [id number] Sep, Recurrent major depressive disorder, in partial remission F33.41 [facility] [address] [id number], [place] [id number] Aug, Irritable mood R45.4 [facility] [address] [facility] [id number] [address] [place] [address] Aug, [facility] [address] [id number], [place] [id number] Jul, Benign essential hypertension I10 ; Robert a R60.9 and Impacted cerumen of left ear H61.22 [facility] [address] [facility] [id number] [address] [place] [id number] 14 Jul, 2017 Major depression F32.9 ; Rec urrent major depressive disorder, in partial remission F33.41 and Anxiety F41.9 [place] [address] [facility] [id number] [address] [place] [address] Jun, Major depression F32.9 ; Rec urrent major depressive disorder, in partial remission F33.41 and Anxiety F41.9 [facility] [address] [id number], [place] [id number] Jun, Major depression F32.9 ; Morbid obesity E66.01 ; Irritable mood R45.4 ; Hand weakness R29.898 and Vitamin D deficiency E55.[address] [place] [address] [id number], [place] [id number] Jun, [facility] [id number] [place] [address] [id number] May, Major depression F32.9 [place] [address] [facility] [id number] [address] [place] [address] May, Major depression F32.9 [facility] [id number] [place] [address] [id number] May, BMI 50.0-59.9, adult Z68.43 ; Major depr ession F32.9 ; Anxiety F41.9 ; Hypertrophic toenail L60.2 and Pain of left great toe M79.[address] [place] [address] [id number], [place] [id number] May, Recurrent major depressive disorder, in partial remission F33.41 [place] [address] [facility] [id number] [address] [place] [address] Apr, [facility] [address] [id number], [place] [id number] Apr, [facility] [address] [facility] [id number] [address] [place] [address] Apr, Major depression F32.9 [facility] [address] [id number], [place] [id number] Apr, Severe episode of recurrent major depres sive disorder, without psychotic features F33.2 ; Anxiety F41.9 and Insomnia G47.00 [facility] [address] [id number], [place] [id number] Apr, [facility] [address] [facility] [id number] [address] [place] [address] Apr, [facility] [address] [id number], [place] [id number] Apr, [facility] [address] [id number], [place] [id number] Mar, [facility] [address] [address] [id number], [place] [id number] Mar, Allergic conjunctivitis of both eyes H10 .13 [facility] [address] [facility] [id number] [address] [place] [address] Mar, Major depression F32.9 [facility] [address] [id number], [place] [id number] Mar, Metabolic syndrome E88.81 ; History of g astric bypass Z98.890 ; Benign essential hypertension I10 ; Allergic conjunctivitis of both eyes H10.13 and Morbid obesity E66.01 [facility] [address] [facility] [id number] [address] [place] [address] Mar, Major depression F32.9 [facility] [address] [id number], [place] [id number] Feb, [facility] [address] [facility] [id number] [address] [place] [address] Feb, Major depression F32.9 [facility] [address] [id number], [place] [id number] Feb, Subacute maxillary sinusitis J01.00 and Bronchitis J40 [facility] [address] [place] [id number] [address] [place] [address] Feb, Major depressive disorder, r ecurrent, moderate F33.1 [facility] [address] [id number], [place] [id number] Jan, [facility] [address] [facility] [id number] [place] [address] [id number] Jan, Acute non-recurrent maxillary sinusitis J01.00 and Skin tag L91.8 [place] [address] [facility] [address] [id number], [place] [id number] Jan, Cough R05 and Sinus congestion R09.81 [facility] [address] [facility] [id number] [place] [address] [id number] Jan, [facility] [id number] [place] [address] [id number] Jan, Benign essential hypertension I10 ; Hist ory of gastric bypass Z98.890 and Nausea and vomiting in adult R11.2 [place] [address] [place] [id number] [address] [place] [address] Jan, Major depressive disorder, r ecurrent, moderate F33.1 [facility] [address] [place] [id number] [address] [place] [address] Dec, Insomnia G47.00 ; Recurrent major depressive disorder, in partial remission F33.41 and Morbid obesity E66.01 [facility] [address] [facility] [address] [id number], [place] [id number] Dec, [facility] [address] [id number], [place] [id number] Dec, Chronic bacterial conjunctivitis of left eye H10.402 [facility] [address] [id number], [place] [id number] Nov, [address] [id number], [place] [id number] Nov, Dental examination Z01.[address] [id number], [place] [id number] 23 Nov, 2016 Benign essential hypertension I10 ; Hist ory of gastric bypass Z98.890 and Nausea and vomiting in adult R11.2 [facility] [address] [place] [address] 13 Nov, 2016 Major depressive disorder, r ecurrent, moderate F33.1 ; Generalized anxiety disorder F41.1 and Insomnia due to other mental disorder F51.05 [facility] [address] [place] [id number] [address] [place] [phone] 12 Nov, 2016 Recurrent major depressive d isorder, in partial remission F33.41 ; Insomnia G47.00 and Morbid obesity E66.01 [facility] [address] [id number] [id number] October, Abscess of left arm L02.414 [place] [address] [id number] [place] [id number] October, Morbid obesity E66.01 ; Lida r depression F32.9 and Recurrent major depressive disorder, in partial remission F33.[address] [id number] [id number] Sep, Benign essential hypertension I10 ; Morb id obesity E66.01 ; S/P gastric bypass Z98.84 ; Abscess L02.91 and Chronic bacterial conjunctivitis of left eye H10.[address] [id number] [id number] 17 Sep, 2016 Dental examination Z01.20 [facility] [address] [facility] [id number] [address] [place] [id number] 11 Sep, 2016 Morbid obesity E66.01 ; Lida r depression F32.9 and Recurrent major depressive disorder, in partial remission F33.41 [facility] [address] [facility] [id number] [address] [place] [id number] Jul, [facility] [address] [facility] [id number] [address] [place] [id number] Jul, Major depressive disorder, r ecurrent, moderate F33.1 [facility] [address] [facility] [id number] [address] [place] [id number] Jul, Major depressive disorder, r ecurrent, moderate F33.1 and Generalized anxiety disorder F41.1 [facility] [id number] [place] [id number] Jul, Cough R05 [place] [address] [address] [facility] [id number] [address] [place] [id number] Jul, Morbid obesity E66.01 ; Lida r depression F32.9 and Recurrent major depressive disorder, in partial remission F33.41 [facility] [id number] [place] [id number] Jul, [facility] [id number] [place] [id number] Jul, [facility] [id number] [place] [id number] Jul, Gastroenteritis K52.9 and Cough R05 [facility] [id number] [place] [id number] Jun, Acute bacterial conjunctivitis of left e ye H10.32 [facility] [address] [facility] [id number] [address] [place] [id number] Jun, [facility] [address] [facility] [id number] [address] [place] [address] Jun, Recurrent major depressive d isorder, in partial remission F33.41 [facility] [address] [facility] [id number] [address] [place] [address] May, Major depression F32.9 and M orbid obesity E66.01 [facility] [place] [facility] [address] [facility] [id number] [address] [place] [address] May, [facility] [address] [place] [address] AVE [id number] [id number] May, Thrush B37.0 [facility] [address] [facility] [id number] [address] [place] [address] Apr, Major depressive disorder, r ecurrent, moderate F33.1 [facility] [address] [facility] [id number] [address] [place] [address] 15 Apr, 2016 Insomnia G47.00 ; Major depr ession F32.9 and Recurrent major depressive disorder, in partial remission F33.41 [facility] [address] [facility] [id number] [address] [place] [address] 11 Apr, 2016 [place] [address] [facility] [id number] [address] [place] [address] 02 Apr, 2016 Major depression F32.9 and R ecurrent major depressive disorder, in partial remission F33.[address] [id number][place] [id number] Mar, Benign essential hypertension I10 ; Morb id obesity E66.01 ; Impacted cerumen of both ears H61.23 ; Laceration of finger of right hand, initial encounter S61.219A and Encounter for immunization Z23 [facility] [address] [facility] [id number] [address] [place] [address] 17 Mar, 2016 [facility] [address] [facility] [id number] [address] [place] [address] Mar, [place] [address] [facility] [id number] [address] [place] [address] Mar, [address] [id number][place] [id number] Feb, Nausea R11.0 ; Blood in the stool K92.1 and Benign essential hypertension I10 [place] [address] [facility] [id number] [address] [place] [address] Feb, Major depression F32.9 and R ecurrent major depressive disorder, in partial remission F33.[address] [facility] [address] [id number], [place] [id number] Feb, [facility] [address] [id number][place] [id number] Feb, Recurrent major depressive disorder, in partial remission F33.[address] [facility] [address] [id number], [place] [id number] Jan, [facility] [address] [id number], [place] [id number] Jan, Benign essential hypertension I10 ; Robert a R60.9 and Hyperlipidemia, unspecified hyperlipidemia type E78.5 [facility] [place] [address] [id number][place] [id number] Jan, Recurrent major depressive disorder, in partial remission F33.41 [facility] [address] [id number] [place] [id number] Jan, [facility] [place] [address] [id number], [place] [id number] Jan, [facility] [place] [address] [id number], [place] [id number] Jan, [facility] [address] [facility] [id number] [address] [place] [address] Jan, [facility] [address] [facility] [id number] [address] [place] [address] Dec, [facility] [address] [facility] [id number] [address] [place] [address] Nov, [facility] [address] [facility] [id number] [address] [place] [address] Nov, Major depression F32.9 [facility] [address] [facility] [id number] [address] [place] [address] Nov, [place] [address] [facility] [id number] [address] [place] [address] Nov, [place] [address] [facility] [id number] [address] [place] [address] Nov, Major depressive disorder, r ecurrent episode, mild F33.0 and Anxiety F41.9 [facility] [address] [id number], [place] [id number] Nov, [facility] [id number] [place] [address] [id number] October, Left elbow pain M25.522 and Other season al allergic rhinitis J30.2 [facility] [address] [facility] [id number] [place] [address] [id number] October, [place] [address] [facility] [id number] [address] [place] [address] October, Major depressive disorder, r ecurrent, moderate F33.1 [place] [address] [facility] [id number] [address] [place] [address] October, Major depression F32.9 [place] [address] [address] [place] [id number] [address] [place] [address] Sep, [place] or callus L84 and Onych omycosis B35.1 [place] [address] [address] [place] [id number] [address] [place] [address] Sep, Major depressive disorder, r ecurrent, moderate F33.1 [place] [address] [facility] [id number] [address] [place] [address] Sep, Major depression F32.9 [place] [address] [facility] [id number] [address] [place] [address] Sep, Moderate episode of recurren t major depressive disorder F33.1 [facility] [address] [id number], [place] [id number] Sep, Muscle strain T14.8 [place] [address] [facility] [id number] [address] [place] [address] Aug, Major depression F32.9 [facility] [address] [facility] [id number] [address] [place] [address] Aug, Major depression F32.9 [facility] [address] [facility] [id number] [address] [place] [address] Jul, Morbid obesity E66.01 and Ma cora depression F32.9 [facility] [address] [facility] [id number] [address] [place] [address] Jul, Depression, major, recurrent , moderate F33.1 [facility] [address] [place] [address] A[id number] [place] [address] [id number] Jul, [facility] [address] [facility] [id number] [address] [place] [address] Jul, [facility] [address] [facility] [id number] [address] [place] [address] Jul, Major depression F32.9 and M orbid obesity E66.[id number] [place] [address] [id number] Jul, Type II diabetes mellitus E11.9 ; Callus of foot L84 ; Benign essential hypertension I10 and Renal insufficiency N28.9 [facility] [address] [facility] [id number] [address] [place] [address] Jul, Depression, major, recurrent , moderate F33.1 [facility] [address] [facility] [id number] [address] [place] [address] Jul, Major depression F32.9 [facility] [address] [facility] [id number] [address] [place] [address] Jul, [facility] [address] [facility] [id number] [address] [place] [address] Jun, Major depression F32.9 [facility] [address] [facility] [id number] [address] [place], [place] [id number] Jun, Major depressive disorder, r ecurrent, moderate F33.1 [place] [address] [place] [id number] Jun, [place] [address] [address] [place] [id number] [address] [place] [id number] Jun, Major depressive disorder, r ecurrent, moderate F33.1 and Major depression F32.[id number] [place] [address] [id number] Jun, Type II diabetes mellitus E11.9 [place] [address] [place] [address] Jun, Depression, major, recurrent , moderate F33.1 [place] [address] [address] [place] [id number] [address] [place] [address] May, Major depressive disorder, r ecurrent, moderate F33.1 [place] [address] [place] [address] May, [id number] [place] [address] [id number] May, Edema R60.9 [place] [address] [place] [id number] [address] [place] [address] May, Insomnia G47.00 and Major de pression F32.[address] [id number] [place] [address] [id number] 15 May, 2015 Morbid obesity E66.01 ; Edema R60.9 ; Sh ortness of breath R06.02 ; Benign essential hypertension I10 and Renal insufficiency N28.[address] [id number] [place] [address] [id number] 14 May, 2015 Hyperlipemia 272.4 and Renal insufficien cy N28.9 [place] [address] [facility] [id number] [address] [place] [address] Apr, Major depression F32.9 [facility] [address] [facility] [id number] [address] [place] [address] Apr, [place] [address] [facility] [id number] [address] [place] [address] Apr, Major depressive disorder, r ecurrent, moderate F33.1 [facility] [address] [id number], [place] [id number] Apr, Type II diabetes mellitus E11.9 ; Benign essential hypertension I10 ; Edema R60.9 and Renal insufficiency N28.9 [place] [address] [facility] [id number] [address] [place] [address] Mar, Major depressive disorder, r ecurrent, moderate F33.1 [place] [address] [facility] [id number] [address] [place] [address] Mar, [place] [address] [facility] [id number] [address] [place] [address] Mar, Major depression F32.9 [facility] [address] [facility] [address] [id number] [place] [address] [id number] Mar, Morbid obesity E66.01 ; Benign essential hypertension I10 and Type II diabetes mellitus E11.9 [place] [address] [facility] [id number] [address] [place] [address] Feb, Major depressive disorder, r ecurrent, moderate F33.1 [place] [address] [facility] [id number] [address] [place] [address] Feb, Major depressive disorder, r ecurrent episode, in partial or unspecified remission 296.35 ; Anxiety state, unspecified 300.00 and Morbid obesity 278.01 [place] [address] [facility] [id number] [address] [place] [address] Feb, [facility] [address] [id number][place] [id number] Feb, Vomiting 787.03 and Viral syndrome 079.9 9 [place] [address] [facility] [id number] [address] [place] [address] 15 Feb, 2015 Major depression, recurrent 296.30 ; Generalized anxiety disorder 300.02 and No condition on Alvaton II V71.09 [facility] [address] [place] [address] AVE [id number], [place] [id number] Feb, Skin tag 701.9 [facility] [address] [facility] [id number] [address] [place] [id number] Feb, [facility] [address] [facility] [id number] [address] [place] [address] Jan, Depression, major, recurrent , moderate 296.32 [address] [id number], [place] [id number] Jan, Nausea and vomiting 787.01 ; Rib pain on right side 786.50 and Fall on or from sidewalk curb E880.1 [facility] [address] [facility] [id number] [address] [place] [address] Jan, [facility] [address] [facility] [id number] [address] [place] [address] Jan, Major depressive disorder, r ecurrent episode, in partial or unspecified remission 296.35 and Anxiety state, unspecified 300.00 [address] [id number], [place] [id number] Jan, [facility] [address] [facility] [id number] [address] [place] [address] Jan, Depression, major, recurrent , moderate 296.32 [facility] [address] [facility] [id number] [address] [place] [address] Jan, Major depression, recurrent 296.30 ; No condition on Alvaton II V71.09 and No condition on axis III V71.[address] [id number], [place] [id number] Jan, Drug-induced nausea and vomiting 787.01 [facility] [address] [facility] [id number] [address] [place] [address] Jan, Depression, major, recurrent , moderate 296.32 [place] [address] [place] [address] Dec, Depression, major, recurrent , moderate 296.32 [facility] [id number] [place] [address] [id number] Dec, Morbid obesity 278.01 ; Metabolic syndro me 277.7 ; Hyperlipemia 272.4 ; Benign essential hypertension 401.1 ; Dietary counseling V65.3 ; Exercise counseling V65.41 and Inflamed skin tag 701.9 [place] [address] [address] Dec, Depression, major, recurrent , moderate 296.32 [place] [address] [place] [id number] [address] [place] [address] Dec, [address] [address] Dec, Major depression, recurrent 296.30 ; Anxiety, generalized 300.02 and No condition on Alvaton II V71.09 [place] [address] [place] [id number] [address] [place] [address] Dec, Depression, major, recurrent , moderate 296.32 [place] [address] [place] [id number] [address] [place] [address] Dec, Major depressive disorder, r ecurrent episode, moderate 296.32 [place] [address] [place] [id number] [address] [place] [address] Dec, Depression, major, recurrent , moderate 296.32 [place] [address] [place] [id number] [address] [place] [address] Dec, Depression, major, recurrent , moderate 296.32 [place] [address] [place] [id number] [address] [place] [address] Dec, Depression, major, recurrent , moderate 296.32 [place] [address] [place] [address] Dec, Depression, major, recurrent , moderate 296.32 [facility] [address] [address] Nov, Depression, major, recurrent , moderate 296.32 [facility] [address] [address] Nov, Major depression 296.20 ; So cial phobia 300.23 and No condition on Alvaton II V71.09 [facility] [address] [address] Nov, Depression, major, recurrent , moderate 296.32 [place] [address] [address] Nov, Major depressive disorder, r ecurrent episode, moderate 296.32 and Generalized anxiety disorder 300.02 [facility] [address] [address] Nov, Depression, major, recurrent , moderate 296.32 [facility] [address] [address] Nov, Depression, major, recurrent , moderate 296.32 [facility] [address] [address] October, Generalized anxiety disorder 300.02 ; No condition on Alvaton II V71.09 and Major depressive disorder, recurrent 296.30 [facility] [address] [address] Sep, [facility] [address] [address] Sep, [facility] [address] [address] Aug, [facility] [address] [place] [id number] [address] [place] [address] Aug, [facility] [place] [facility] [address] [id number] [facility] [place] [address] 23 Aug, 2014 [facility] [address] [id number] [address] [place] [address], [place] [address] 23 Aug, 2014 [facility] [address] [id number] [facility] [place] [address] 20 Aug, 2014 [facility] [address] [id number] [address] [place] [address], [place] [address] 20 Aug, 2014 [facility] [address] [id number] [address] [place] [address], [place] [address] 20 Aug, 2014 [facility] [address] [id number] [address] [place] [address], [place] [address] 20 Aug, 2014 [facility] [address] [id number] [address] [place] [address], [place] [address] 13 Aug, 2014 [facility] [address] [id number] [address] [place] [address], [place] [address] 13 Aug, 2014 [facility] [address] [id number] [address] [place] [address], [place] [address] 13 Aug, 2014 [facility] [address] [id number] [address] [place] [address], [place] [address] 13 Aug, 2014 [facility] [address] [id number] [address] [place] [address], [place] [address] 12 Aug, 2014 [facility] [address] [id number] [address] [place] [address], [place] [address] 12 Aug, 2014 [facility] [address] [id number] [address] [place] [address], [place] [address] 10 Aug, 2014 [facility] [address] [id number] [address] [place] [address], [place] [address] 10 Aug, 2014 [facility] [address] [id number] [address] [place] [address], [place] [address] 09 Aug, 2014 [facility] [address] [id number] [address] [place] [address], [place] [address] Aug, [facility] [address] [id number] [address] [place] [address], [place] [address] Jul, [facility] [place] [facility] [address] [id number] [address] [place] [address], [place] [address] Jul, [facility] [address] [id number] [address] [place] [address], [place] [address] Jul, [facility] [place] [facility] [address] [id number] [address] [place] [address], [place] [address] Jul, [facility] [address] [id number] [address] [place] [address], [place] [address] Jul, [facility] [address] [id number] [address] [place] [address], [place] [address] Jul, [facility] [address] [id number] [address] [place] [address], [place] [address] Jun, [facility] [address] [id number] [address] [place] [address], [place] [address] Jun, [facility] [address] [id number] [address] [place] [address], [place] [address] Jun, [facility] [address] [id number] [address] [place] [address], [place] [address] Jun, [facility] [address] [id number] [address] [place] [address], [place] [address] Jun, [facility] [place] [facility] [address] [id number] [address] [place] [address], [place] [address] Jun, [facility] [address] [id number] [address] [place] [address], [place] [address] Jun, [facility] [address] [id number] [address] [place] [address], [place] [address] Jun, [facility] [address] [id number] [address] [place] [address], [place] [address] Jun, [facility] [address] [id number] [address] [place] [address], [place] [address] Jun, [facility] [address] [id number] [address] [place] [address], [place] [address] Jun, [facility] [address] [id number] [address] [place] [address], [place] [address] Jun, [facility] [address] [id number] [place] [id number] Jun, [facility] [address] [id number] [address] [place] [address], [place] [address] Jun, [facility] [address] [id number] [address] [place] [address], [place] [address] Jun, [facility] [address] [id number] [address] [place] [address], [place] [address] Jun, [facility] [address] [id number] [address] [place] [address], [place] [address] May, [facility] [address] [id number] [address] [place] [address], [place] [address] May, [facility] [address] [id number] [address] [place] [address], [place] [address] May, [facility] [address] [id number] [address] [place] [address], [place] [address] May, [facility] [address] [id number] [address] [place] [address], [place] [address] Apr, [facility] [address] [id number] [address] [place] [address], [place] [address] Apr, [facility] [address] [id number] [address] [place] [address], [place] [address] Apr, [facility] [address] [id number] [address] [place] [address], [place] [address] Apr, [facility] [address] [id number] [address] [place] [address], [place] [address] Apr, [facility] [address] [id number] [address] [place] [address], [place] [address] Apr, [facility] [address] [id number] [address] [place] [address], [place] [address] Apr, [facility] [address] [id number] [address] [place] [address], [place] [address] Apr, [facility] [address] [id number] [address] [place] [address], [place] [address] Apr, [facility] [address] [id number] [address] [place] [address], [place] [address] Apr, [facility] [address] [id number] [address] [place] [address], [place] [address] Apr, [facility] [address] [id number] [address] [place] [address], [place] [address] Apr, [facility] [address] [id number] [address] [place] [address], [place] [address] Apr, [facility] [address] [id number] [address] [place] [address], [place] [address] Apr, [facility] [address] [id number] [address] [place] [address], [place] [address] Apr, [facility] [address] [id number] [address] [place] [address], [place] [address] Apr, [facility] [address] [id number] [address] [place] [address], [place] [address] Apr, [facility] [address] [id number] [address] [place] [address], [place] [address] Apr, [facility] [address] [id number] [address] [place] [address], [place] [address] Apr, [facility] [address] [id number] [address] [place] [address], [place] [address] Apr, [facility] [address] [id number] [address] [place] [address], [place] [address] Mar, [facility] [address] [id number] [address] [place] [address], [place] [address] Mar, [facility] [address] [id number] [address] [place] [address], [place] [address] Mar, [facility] [address] [id number] [address] [place] [address], [place] [address] Mar, [facility] [address] [id number] [address] [place] [address], [place] [address] Mar, [facility] [address] [id number] [address] [place] [address], [place] [address] Mar, [facility] [address] [id number] [address] [place] [address], [place] [address] Mar, [facility] [address] [id number] [address] [place] [address], [place] [address] Mar, [facility] [address] [id number] [address] [place] [address], [place] [address] Mar, [facility] [address] [id number] [address] [place] [address], [place] [address] Mar, [facility] [address] [id number] [address] [place] [address], [place] [address] Feb, [facility] [address] [id number] [address] [place] [address], [place] [address] Feb, [facility] [address] [id number] [address] [place] [address], [place] [address] Feb, [facility] [address] [id number] [address] [place] [address], [place] [address] Feb, [facility] [address] [id number] [address] [place] [address], [place] [address] Jan, [facility] [address] [id number] [address] [place] [address], [place] [address] Jan, [facility] [address] [id number] [address] [place] [address], [place] [address] Jan, [facility] [address] [id number] [address] [place] [address], [place] [address] Jan, [facility] [address] [id number] [address] [place] [address], [place] [address] Jan, [facility] [address] [id number] [address] [place] [address], [place] [address] Jan, [facility] [address] [id number] [address] [place] [address], [place] [address] Dec, [facility] [address] [id number] [address] [place] [address], [place] [address] Dec, [facility] [address] [id number] [address] [place] [address], [place] [address] Nov, [facility] [address] [id number] [address] [place] [address], [place] [address] Nov, [facility] [address] [id number] [address] [place] [address], [place] [address] Nov, [facility] [address] [id number] [address] [place] [address], [place] [address] Nov, [facility] [address] [id number] [address] [place] [address], [place] [address] Nov, [facility] [address] [id number] [address] [place] [address], [place] [address] Nov, [facility] [address] [id number] [address] [place] [address], [place] [address] Sep, [facility] [address] [id number] [address] [place] [address], [place] [address] Sep, [facility] [address] [id number] [address] [place] [address], [place] [address] Sep, [facility] [address] [id number] [address] [place] [address], [place] [address] Sep, [facility] [address] [id number] [address] [place] [address], [place] [address] Aug, [facility] [address] [id number] [address] [place] [address], [place] [address] Aug, [facility] [address] [id number] [address] [place] [address], [place] [address] Jul, [facility] [address] [id number] [address] [place] [address], [place] [address] Jul, [facility] [address] [id number] [address] [place] [address], [place] [address] Jun, [facility] [address] [id number] [address] [place] [address], [place] [address] Jun, [facility] [address] [id number] [address] [place] [address], [place] [address] Jun, [facility] [address] [id number] [address] [place] [address], [place] [address] Jun, [facility] [address] [id number] [address] [place] [address], [place] [address] May, [facility] [address] [id number] [address] [place] [address] May, [facility] [address] [id number] [address] [place] [address] May, [facility] [address] [id number] [address] [place] [address] May, [facility] [address] [id number] [address] [place] [address], [place] [address] May, [facility] [address] [id number] [address] [place] [address], [place] [address] May, [facility] [address] [id number] [address] [place] [address], [place] [address] Apr, [facility] [address] [id number] [address] [place] [address] Apr, [facility] [address] [id number] [address] [place] [address], [place] [address] Apr, [facility] [address] [id number] [address] [place] [address] Apr, [facility] [address] [id number] [address] [place] [address], [place] [address] Mar, [facility] [address] [id number] [address] [place] [address], [place] [address] Mar, [facility] [address] [id number] [address] [place] [address], [place] [address] Mar, [facility] [address] [id number] [address] [place] [address], [place] [address] Mar, [facility] [address] [id number] [address] [place] [address] Feb, [facility] [address] [id number] [id number] Jan, [facility] [address] [id number] [address] [place] [address] Jan, [facility] [address] [id number] [address] [place] [address] Dec, [facility] [address] [id number] [address] [place] [address] Dec, [facility] [address] [id number] [address] [place] [address] Dec, [facility] [address] [id number] [place] [id number] Dec, [facility] [address] [id number] [address] [place] [address] Nov, [facility] [address] [id number] [address] [place] [address], [place] [address] Nov, [facility] [address] [id number] [address] [place] [address] 12 Nov, 2012 [facility] [address] [facility] [id number] [address] [place] [address] Nov, [facility] [address] [facility] [id number] [address] [place] [address] Nov, [facility] [address] [facility] [id number] [address] [place] [address] October, [facility] [address] [facility] [id number] [address] [place] [address] October, [facility] [address] [facility] [id number] [address] [place] [address] Aug, [facility] [address] [facility] [id number] [address] [place] [address] 13 Nov, 2011 IMMUNIZATIONS No Known Immunizations [...] 03/2016 Hospitalization History gastric sleeve Hospitalization History [facility] Trouble with left shoulder blade 08/2017
--- OUTSIDE RECORDS SUMMARY | 2019-11-29 09:11 | XMS REPORT ---
Author Author Curt Hughes [facility] Address [address] [place], [place] [id number] Care Team Providers Care Joist Setter Name Role Phone Saul [facility] JASON Unavailable PROBLEMS Type Condition ICD9-CM Code OUO49-UB Code Onset Dates Condition S tatus SNOMED Code Problem Hyperlipemia E78.5 Active 2915333 4 Problem Insomnia G47.00 Active 002350095 Problem Morbid obesity E66.01 Active 90944 6002 Problem Benign essential hypertension I10 Active 6389135 Problem Renal insufficiency N28.9 Active 841118377 Problem Edema R60.9 Active 713221030 Problem Vitamin D deficiency E55.9 Active 91540317 Problem Mixed obsessional thoughts and acts F42.2 Active 81278072 Problem BMI 45.0-49.9, adult Z68.42 Active 902641139 Problem Other chronic pain G89.29 Active 8 5592355 Problem Severe episode of recurrent major depressive disorder, without psychotic features F33.2 Active 91055316 Problem Callous ulcer, limited to breakdown of skin L98.49 1 Active Problem Metabolic syndrome E88.81 Active 2 21269905 Problem DANIELA (generalized anxiety disorder) F41.1 Active 17223423 Problem Sciatica, right side M54.31 Active [id number] Problem 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 [place] [id number] Jan, [facility] [address] [facility] [id number] [address] [place] [phone] Jan, [facility] [address] [facility] [id number] [address] [place] [phone] Jan, [address] [id number][place] [id number] Jan, Benign essential hypertension I10 [facility] [address] [id number][place] [id number] Dec, Callous ulcer, limited to breakdown of s kin L98.491 and Morbid obesity E66.01 [facility] [address] [facility] [id number] [address] [place] [phone] Dec, [facility] [address] [facility] [id number] [address] [place] [phone] Dec, [facility] [address] [facility] [id number] [address] [place] [phone] Dec, [facility] [address] [facility] [id number] [address] [place] [phone] Dec, [facility] [address] [place] [id number] [address] [place] [phone] Dec, Severe episode of recurrent major depressive disorder, without psychotic features F33.2 [facility] [address] [facility] [id number] [address] [place] [phone] Dec, DANIELA (generalized anxiety dis order) F41.1 ; Severe episode of recurrent major depressive disorder, without psychotic features F33.2 ; Mixed obsessional thoughts and acts F42.2 and Dependent personality disorder F60.[address] [id number], [place] [id number] Dec, Morbid obesity E66.01 [facility] [address] [facility] [id number] [address] [place] [phone] Dec, [facility] [address] [facility] [id number] [address] [place] [phone] Dec, [address] [phone] Nov, [facility] [place] [address] [place] [address] AVE [id number], [place] [id number] Nov, [facility] [address] [place] [id number] [address] [place] [phone] Nov, [facility] [address] [facility] [id number] [address] [place] [phone] Nov, [facility] [address] [facility] [id number] [address] [place] [phone] 13 Nov, 2018 DANIELA (generalized anxiety dis order) F41.1 ; Severe episode of recurrent major depressive disorder, without psychotic features F33.2 ; Mixed obsessional thoughts and acts F42.2 and 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 [facility] [place] [address] [id number], [place] [id number] Nov, Morbid obesity E66.01 [facility] [address] [facility] [id number] [address] [place] [phone] Nov, [facility] [address] [facility] [id number] [address] [place] [phone] Nov, DANIELA (generalized anxiety dis order) F41.1 ; Mixed obsessional thoughts and acts F42.2 ; Severe episode of recurrent major depressive disorder, without psychotic features F33.2 and 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 [facility] [place] [address] [id number], [place] [id number] October, Morbid obesity E66.01 [facility] [place] [address] [id number], [place] [id number] October, Benign essential hypertension I10 and Mo rbid obesity E66.01 [facility] [address] [id number], [place] [id number] October, [facility] [address] [facility] [id number] [address] [place] [phone] October, Severe episode of recurrent major depressive disorder, without psychotic features F33.2 [facility] [address] [id number], [place] [id number] October, Morbid obesity E66.01 [facility] [place] [address] [id number], [place] [id number] October, [facility] [address] [place] [phone] October, Severe episode of recurrent major depressive disorder, without psychotic features F33.2 ; DANIELA (generalized anxiety disorder) F41.1 ; Mixed obsessional thoughts and acts F42.2 and Dependent personality disorder F60.[address] [place] [address] [id number], [place] [id number] October, Morbid obesity E66.01 [facility] [address] [place] [id number] [address] [place] [address] [id number] Sep, Dental examination Z01.[address] [id number], [place] [id number] Sep, [facility] [address] [place] [id number] [address] [place] [phone] Sep, Sore in mouth K13.79 and Mor bid obesity E66.01 [facility] [address] [place] [address] Sep, Dental examination Z01.20 [facility] [address] [place] [id number] [address] [place] [phone] Sep, Anxiety disorder, unspecifie d F41.[address] [id number], [place] [id number] Sep, Mouth ulcer K12.[address] [id number], [place] [id number] Sep, Morbid obesity E66.[address] [id number], [place] [id number] Sep, Allergic rhinitis, unspecified seasonali ty, unspecified trigger J30.9 and Shortness of breath R06.[address] [place] [place] [address] [id number], [place] [id number] Sep, 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 [place] [address] [id number], [place] [id number] Aug, Mouth abscess K12.2 ; Mouth ulcer K12.1 ; Bloating R14.0 and Morbid obesity E66.01 [facility] [address] [facility] [address] [id number], [place] [id number] Aug, [facility] [address] [place] [address] AVE [id number], [place] [id number] Aug, [facility] [place] [address] [place] [address] AVE [id number], [place] [id number] Jul, Major depressive disorder, recurrent, mo derate F33.1 ; Abscess of arm, left L02.414 ; BMI 45.0-49.9, adult Z68.42 and Morbid obesity E66.01 [facility] [address] [place] [address] AVE [id number], [place] [id number] Jul, [facility] [place] [address] [place] [address] AVE [id number], [place] [id number] Jul, [facility] [place] [address] [place] [address] AVE [id number], [place] [id number] Jun, Pain in right knee M25.561 and Other chr onic pain G89.29 [facility] [place] [id number], [place] [id number] Jun, Benign essential hypertension I10 ; BMI 45.0-49.9, adult Z68.42 ; Morbid obesity E66.01 ; Vitamin D deficiency E55.9 ; Insomnia G47.00 ; 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 ; Edema R60.9 ; Recurrent major depressive disorder, in partial remission F33.41 ; Chronic fatigue R53.82 ; Acute pain of right knee M25.561 ; Metabolic syndrome E88.81 and Irritable mood R45.4 [facility] [address] [facility] [id number] [address] [place] [phone] Jun, [facility] [place] [id number], [place] [id number] Jun, Irritable mood R45.4 [facility] [address] [id number] [address] [place] [phone] May, [facility] [address] [facility] [id number] [address] [place] [phone] May, [facility] [address] [facility] [id number] [address] [place] [phone] May, Recurrent major depressive d isorder, in partial remission F33.41 ; Mixed obsessional thoughts and acts F42.2 ; 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 and BMI 45.0-49.9, adult Z68.42 [facility] [address] [id number] [address] [place] [phone] Apr, [facility] [address] [facility] [id number] [address] [place] [phone] Apr, [place] [address] [facility] [id number] [address] [place] [phone] Apr, [facility] [address] [facility] [id number] [address] [place] [phone] Apr, [facility] [address] [facility] [id number] [address] [place] [phone] Mar, Mixed obsessional thoughts a nd acts F42.2 ; Recurrent major depressive disorder, in partial remission F33.41 ; DANIELA (generalized anxiety disorder) F41.1 and BMI 45.0-49.9, adult Z68.42 [facility] [place] [address] [id number], [place] [id number] Mar, [facility] [address] [id number], [place] [id number] Mar, BMI 45.0-49.9, adult Z68.42 ; Instabilit y of right knee joint M25.361 and Rash R21 [facility] [address] [facility] [id number] [address] [place] [phone] Jan, Recurrent major depressive d isorder, in partial remission F33.41 ; Mixed obsessional thoughts and acts F42.2 and BMI 45.0-49.9, adult Z68.42 [facility] [place] [address] [id number], [place] [id number] Jan, [facility] [place] [facility] [address] [id number], [place] [id number] Jan, Benign essential hypertension I10 ; BMI 45.0-49.9, adult Z68.42 ; Metabolic syndrome E88.81 and Allergic rhinitis, unspecified seasonality, unspecified trigger J30.9 [facility] [address] [facility] [id number] [address] [place] [phone] Dec, DANIELA (generalized anxiety dis order) F41.1 and Depressive disorder, not elsewhere classified F32.9 [facility] [place] [facility] [address] [id number], [place] [id number] Dec, Recurrent major depressive disorder, in partial remission F33.41 [facility] [place] [address] [id number], [place] [id number] Dec, [facility] [place] [address] [id number], [place] [id number] Nov, [facility] [place] [id number] [place] [address] [id number] Nov, Recurrent major depressive disorder, in partial remission F33.41 [facility] [address] [facility] [id number] [address] [place] [phone] Nov, Recurrent major depressive d isorder, in partial remission F33.41 ; Mixed obsessional thoughts and acts F42.2 ; DANIELA (generalized anxiety disorder) F41.1 and BMI 45.0-49.9, adult Z68.42 [facility] [place] [address] [id number], [place] [id number] Nov, [facility] [address] [id number], [place] [id number] Nov, Other conjunctivitis of both eyes H10.89 and Sciatica, right side M54.31 [facility] [place] [address] [id number], [place] [id number] Nov, [facility] [address] [id number], [place] [id number] Nov, [facility] [address] [id number], [place] [id number] October, [facility] [address] [id number], [place] [id number] October, [place] [address] [facility] [id number] 100[place] [address] October, BMI 45.0-49.9, adult Z68.42 ; Mixed obsessional thoughts and acts F42.2 ; Recurrent major depressive disorder, in partial remission F33.41 and DANIELA (generalized anxiety disorder) F41.1 [facility] [address] [id number], [place] [id number] October, Benign essential hypertension I10 ; Morb id obesity E66.01 and BMI 45.0-49.9, adult Z68.42 [facility] [address] [id number], [place] [id number] Sep, [facility] [address] [id number], [place] [id number] Sep, [facility] [address] [id number], [place] [id number] Sep, [facility] [address] [id number], [place] [id number] Sep, Hospital discharge follow-up Z09 ; Aller gic rhinitis, unspecified seasonality, unspecified trigger J30.9 and Shortness of breath R06.02 [facility] [address] [id number], [place] [id number] Sep, Recurrent major depressive disorder, in partial remission F33.41 [facility] [address] [id number], [place] [id number] Aug, Irritable mood R45.4 [place] [address] [facility] [id number] [address] [place] [phone] Aug, [place] [id number] [place] [address] [id number] Jul, Benign essential hypertension I10 ; Robert a R60.9 and Impacted cerumen of left ear H61.22 [place] [address] [facility] [id number] [address] [place] [phone] Jul, Major depression F32.9 ; Rec urrent major depressive disorder, in partial remission F33.41 and Anxiety F41.9 [place] [address] [facility] [id number] [address] [place] [phone] Jun, Major depression F32.9 ; Rec urrent major depressive disorder, in partial remission F33.41 and Anxiety F41.[address] [place] [address] [id number], [place] [id number] Jun, Major depression F32.9 ; Morbid obesity E66.01 ; Irritable mood R45.4 ; Hand weakness R29.898 and Vitamin D deficiency E55.[address] [place] [address] [id number], [place] [id number] Jun, [facility] [address] [id number], [place] [id number] May, Major depression F32.9 [place] [address] [facility] [id number] [address] [place] [phone] May, Major depression F32.9 [facility] [address] [id number], [place] [id number] May, BMI 50.0-59.9, adult Z68.43 ; Major depr ession F32.9 ; Anxiety F41.9 ; Hypertrophic toenail L60.2 and Pain of left great toe M79.[address] [place] [address] [id number], [place] [id number] May, Recurrent major depressive disorder, in partial remission F33.41 [facility] [address] [facility] [id number] [address] [place] [address] Apr, [facility] [place] [address] [id number], [place] [id number] Apr, [facility] [address] [facility] [id number] [address] [place] [phone] Apr, Major depression F32.9 [facility] [address] [id number], [place] [id number] Apr, Severe episode of recurrent major depres sive disorder, without psychotic features F33.2 ; Anxiety F41.9 and Insomnia G47.00 [facility] [address] [id number], [place] [id number] Apr, [facility] [address] [facility] [id number] [address] [place] [address] Apr, [facility] [place] [address] [id number], [place] [id number] Apr, [facility] [place] [address] [id number], [place] [id number] Mar, [facility] [place] [id number] [place] [address] [id number] Mar, Allergic conjunctivitis of both eyes H10 .13 [facility] [address] [facility] [id number] [address] [place] [address] Mar, Major depression F32.9 [facility] [address] [id number], [place] [id number] Mar, Metabolic syndrome E88.81 ; History of g astric bypass Z98.890 ; Benign essential hypertension I10 ; Allergic conjunctivitis of both eyes H10.13 and Morbid obesity E66.01 [facility] [address] [facility] [id number] [address] [place] [phone] Mar, Major depression F32.9 [facility] [address] [id number], [place] [id number] Feb, [facility] [address] [facility] [id number] [address] [place] [phone] Feb, Major depression F32.9 [facility] [place] [address] [id number], [place] [id number] Feb, Subacute maxillary sinusitis J01.00 and Bronchitis J40 [facility] [address] [facility] [id number] [address] [place] [phone] Feb, Major depressive disorder, r ecurrent, moderate F33.1 [facility] [place] [address] [id number], [place] [id number] Jan, [facility] [place] [address] [facility] [address] [id number] [place] [address] [id number] Jan, Acute non-recurrent maxillary sinusitis J01.00 and Skin tag L91.8 [facility] [place] [address] [facility] [address] [id number], [place] [id number] Jan, Cough R05 and Sinus congestion R09.81 [facility] [place] [address] [facility] [address] [id number], [place] [id number] Jan, [facility] [place] [address] [facility] [address] [id number] [place] [address] [id number] Jan, Benign essential hypertension I10 ; Hist ory of gastric bypass Z98.890 and Nausea and vomiting in adult R11.2 [place] [address] [place] [id number] [address] [place] [phone] Jan, Major depressive disorder, r ecurrent, moderate F33.1 [facility] [address] [facility] [id number] [address] [place] [address] Dec, Insomnia G47.00 ; Recurrent major depressive disorder, in partial remission F33.41 and Morbid obesity E66.01 [facility] [place] [address] [id number], [place] [id number] Dec, [facility] [place] [address] [id number], [place] [id number] Dec, Chronic bacterial conjunctivitis of left eye H10.[address] [id number], [place] [id number] Nov, [address] [id number], [place] [id number] Nov, Dental examination Z01.[address] [id number] [place] [address] [id number] Nov, Benign essential hypertension I10 ; Hist ory of gastric bypass Z98.890 and Nausea and vomiting in adult R11.2 [place] [address] [facility] [id number] [address] [place] [phone] 13 Nov, 2016 Major depressive disorder, r ecurrent, moderate F33.1 ; Generalized anxiety disorder F41.1 and Insomnia due to other mental disorder F51.05 [place] [id number] [address] [place] [phone] Nov, Recurrent major depressive d isorder, in partial remission F33.41 ; Insomnia G47.00 and Morbid obesity E66.01 [facility] [address] [id number] [place] [id number] October, Abscess of left arm L02.414 [facility] [address] [place] [id number] [address] [place] [phone] October, Morbid obesity E66.01 ; Lida r depression F32.9 and Recurrent major depressive disorder, in partial remission F33.41 [address] [id number], [place] [id number] Sep, Benign essential hypertension I10 ; Morb id obesity E66.01 ; S/P gastric bypass Z98.84 ; Abscess L02.91 and Chronic bacterial conjunctivitis of left eye H10.[address] [id number], [place] [id number] 17 Sep, 2016 Dental examination Z01.20 [place] [address] [place] [id number] [address] [place] [address] Sep, Morbid obesity E66.01 ; Lida r depression F32.9 and Recurrent major depressive disorder, in partial remission F33.41 [facility] [address] [facility] [id number] [address] [place] [phone] Jul, [facility] [address] [facility] [id number] [address] [place] [phone] Jul, Major depressive disorder, r ecurrent, moderate F33.1 [place] [address] [facility] [id number] [address] [place] [phone] Jul, Major depressive disorder, r ecurrent, moderate F33.1 and Generalized anxiety disorder F41.[address] [place] [address] [id number] [place] [address] [id number] Jul, Cough R05 [place] [address] [place] [id number] [address] [place] [address] Jul, Morbid obesity E66.01 ; Lida r depression F32.9 and Recurrent major depressive disorder, in partial remission F33.41 [facility] [id number] [place] [address] [id number] Jul, [place] [id number] [place] [address] [id number] Jul, [place] [id number] [place] [id number] Jul, Gastroenteritis K52.9 and Cough R[address] [place] [id number] [place] [id number] Jun, Acute bacterial conjunctivitis of left e ye H10.32 [place] [address] [facility] [id number] [address] [place] [id number] Jun, [place] [address] [address] [facility] [id number] [address] [place] [phone] Jun, Recurrent major depressive d isorder, in partial remission F33.41 [place] [address] [address] [facility] [id number] [address] [place] [phone] May, Major depression F32.9 and M orbid obesity E66.01 [place] [address] [address] [facility] [id number] [address] [place] [id number] May, [facility] [id number] [place] [address] [id number] May, Thrush B37.0 [place] [address] [address] [facility] [facility] [id number] [address] [place] [address] Apr, Major depressive disorder, r ecurrent, moderate F33.1 [place] [address] [address] [facility] [id number] [address] [place] [address] Apr, Insomnia G47.00 ; Major depr ession F32.9 and Recurrent major depressive disorder, in partial remission F33.41 [place] [id number] [place] [address] Apr, [place] [address] [address] [facility] [id number] [address] [place] [address] Apr, Major depression F32.9 and R ecurrent major depressive disorder, in partial remission F33.[address] [id number] [id number] Mar, Benign essential hypertension I10 ; Morb id obesity E66.01 ; Impacted cerumen of both ears H61.23 ; Laceration of finger of right hand, initial encounter S61.219A and Encounter for immunization Z23 [place] [address] [address] [facility] [id number] [address] [place] [address] Mar, [place] [address] [address] [facility] [id number] [address] [place] [address] Mar, [place] [address] [address] [facility] [id number] [address] [place] [address] Mar, [place] [id number] [place] [id number] Feb, Nausea R11.0 ; Blood in the stool K92.1 and Benign essential hypertension I10 [facility] [address] [facility] [id number] [address] [place] [address] Feb, Major depression F32.9 and R ecurrent major depressive disorder, in partial remission F33.41 [facility] [address] [id number][place] [id number] Feb, [facility] [address] [id number], [place] [id number] Feb, Recurrent major depressive disorder, in partial remission F33.41 [facility] [address] [id number][place] [id number] Jan, [facility] [address] [id number], [place] [id number] Jan, Benign essential hypertension I10 ; Robert a R60.9 and Hyperlipidemia, unspecified hyperlipidemia type E78.5 [facility] [address] [id number], [place] [id number] Jan, Recurrent major depressive disorder, in partial remission F33.41 [facility] [place] [address] [id number] [place] [id number] Jan, [facility] [place] [address] [id number], [place] [id number] Jan, [facility] [address] [id number][place] [id number] Jan, [facility] [address] [facility] [id number] [address] [place] [address] Jan, [facility] [address] [facility] [id number] [address] [place] [address] Dec, [facility] [address] [facility] [id number] [address] [place] [address] Nov, [facility] [address] [facility] [id number] [address] [place] [address] Nov, Major depression F32.9 [facility] [address] [facility] [id number] [address] [place] [address] Nov, [facility] [address] [facility] [id number] [address] [place] [address] Nov, [place] [address] [address] [facility] [id number] [address] [place] [address] Nov, Major depressive disorder, r ecurrent episode, mild F33.0 and Anxiety F41.9 [facility] [address] [id number][place] [id number] Nov, [place] [id number] [place] [address] [id number] October, Left elbow pain M25.522 and Other season al allergic rhinitis J30.[id number] [place] [address] [id number] October, [place] [address] [address] [place] [id number] [address] [place] [address] October, Major depressive disorder, r ecurrent, moderate F33.1 [place] [address] [address] [facility] [id number] [address] [place] [address] October, Major depression F32.9 [place] [address] [address] [place] [id number] [address] [place] [address] Sep, [place] or callus L84 and Onych omycosis B35.1 [place] [address] [address] [facility] [id number] [address] [place] [address] Sep, Major depressive disorder, r ecurrent, moderate F33.1 [place] [address] [address] [facility] [id number] [address] [place] [address] Sep, Major depression F32.9 [place] [address] [address] [facility] [id number] [address] [place] [address] Sep, Moderate episode of recurren t major depressive disorder F33.[address] [place] [address] [id number][place] [id number] Sep, Muscle strain T14.8 [facility] [address] [facility] [id number] [address] [place] [address] Aug, Major depression F32.9 [facility] [address] [facility] [id number] [address] [place] [address] Aug, Major depression F32.9 [facility] [address] [facility] [id number] [address] [place] [address] Jul, Morbid obesity E66.01 and Ma cora depression F32.9 [facility] [address] [facility] [id number] [address] [place] [address] Jul, Depression, major, recurrent , moderate F33.[address] [place] [address] [id number][place] [id number] Jul, [facility] [address] [facility] [id number] [address] [place] [address] Jul, [facility] [address] [facility] [id number] [address] [place] [address] Jul, Major depression F32.9 and M orbid obesity E66.01 [facility] [id number] [place] [address] [id number] Jul, Type II diabetes mellitus E11.9 ; Callus of foot L84 ; Benign essential hypertension I10 and Renal insufficiency N28.9 [facility] [address] [facility] [id number] [address] [place] [id number] 09 Jul, 2015 Depression, major, recurrent , moderate F33.1 [facility] [address] [facility] [id number] [address] [place] [address] 05 Jul, 2015 Major depression F32.9 [facility] [address] [facility] [id number] [address] [place] [address] Jul, [facility] [address] [place] [id number] [address] [place] [address] Jun, Major depression F32.9 [place] [address] [address] [facility] [id number] [address] [place] [address] Jun, Major depressive disorder, r ecurrent, moderate F33.1 [place] [address] [address] [facility] [id number] [address] [place] [address] Jun, [place] [address] [address] [facility] [id number] [address] [place] [address] Jun, Major depressive disorder, r ecurrent, moderate F33.1 and Major depression F32.[id number] [place] [address] [id number] Jun, Type II diabetes mellitus E11.9 [place] [address] [address] [facility] [id number] [address] [place] [address] Jun, Depression, major, recurrent , moderate F33.1 [place] [address] [address] [facility] [id number] [address] [place] [phone] May, Major depressive disorder, r ecurrent, moderate F33.1 [place] [address] [address] [facility] [id number] [address] [place] [address] May, [place] [address] [id number], [place] [id number] May, Edema R60.9 [place] [address] [address] [facility] [id number] [address] [place] [address] 17 May, 2015 Insomnia G47.00 and Major de pression F32.[address] [place] [address] [id number], [place] [id number] 15 May, 2015 Morbid obesity E66.01 ; Edema R60.9 ; Sh ortness of breath R06.02 ; Benign essential hypertension I10 and Renal insufficiency N28.[address] [place] [address] [id number], [place] [id number] 14 May, 2015 Hyperlipemia 272.4 and Renal insufficien cy N28.9 [place] [id number] [facility] [id number] [address] [place] [address] Apr, Major depression F32.9 [facility] [address] [facility] [id number] [address] [place] [address] Apr, [facility] [address] [facility] [id number] [address] [place] [phone] Apr, Major depressive disorder, r ecurrent, moderate F33.1 [facility] [address] [id number], [place] [id number] Apr, Type II diabetes mellitus E11.9 ; Benign essential hypertension I10 ; Edema R60.9 and Renal insufficiency N28.9 [place] [address] [address] [facility] [id number] [address] [place] [phone] Mar, Major depressive disorder, r ecurrent, moderate F33.1 [place] [address] [address] [facility] [id number] [address] [place] [address] Mar, [place] [address] [facility] [id number] [address] [place] [address] Mar, Major depression F32.9 [facility] [id number] [place] [address] [id number] Mar, Morbid obesity E66.01 ; Benign essential hypertension I10 and Type II diabetes mellitus E11.9 [place] [address] [address] [facility] [id number] [address] [place] [address] Feb, Major depressive disorder, r ecurrent, moderate F33.1 [place] [address] [address] [facility] [id number] [address] [place] [address] Feb, Major depressive disorder, r ecurrent episode, in partial or unspecified remission 296.35 ; Anxiety state, unspecified 300.00 and Morbid obesity 278.01 [place] [id number] [facility] [id number] [address] [place] [address] Feb, [facility] [id number] [place] [address] [id number] 16 Feb, 2015 Vomiting 787.03 and Viral syndrome 079.9 9 [place] [address] [address] [place] [id number] [address] [place] [address] 15 Feb, 2015 Major depression, recurrent 296.30 ; Generalized anxiety disorder 300.02 and No condition on [place] II V71.[address] [id number][place] [id number] 03 Feb, 2015 Skin tag 701.9 [place] [address] [address] [place] [id number] [address] [place] [address] Feb, [place] [address] [place] [id number] [address] [place] [address] Jan, Depression, major, recurrent , moderate 296.[address] [id number], [place] [id number] Jan, Nausea and vomiting 787.01 ; Rib pain on right side 786.50 and Fall on or from sidewalk curb E880.1 [place] [address] [address] [facility] [id number] [address] [place] [address] Jan, [place] [address] [place] [id number] [address] [place] [address] Jan, Major depressive disorder, r ecurrent episode, in partial or unspecified remission 296.35 and Anxiety state, unspecified 300.[address] [id number][place] [id number] Jan, [facility] [address] [facility] [id number] [address] [place] [address] Jan, Depression, major, recurrent , moderate 296.32 [place] [address] [address] [place] [id number] [address] [place] [address] Jan, Major depression, recurrent 296.30 ; No condition on [place] II V71.09 and No condition on axis III V71.[address] [id number], [place] [id number] Jan, Drug-induced nausea and vomiting 787.01 [place] [id number] [address] [place] [address] Jan, Depression, major, recurrent , moderate 296.32 [place] [id number] [address] [place] [address] Dec, Depression, major, recurrent , moderate 296.[id number] [place] [address] [id number] Dec, Morbid obesity 278.01 ; Metabolic syndro me 277.7 ; Hyperlipemia 272.4 ; Benign essential hypertension 401.1 ; Dietary counseling V65.3 ; Exercise counseling V65.41 and Inflamed skin tag 701.9 [place] [id number] [address] [place] [address] Dec, Depression, major, recurrent , moderate 296.[address] [address] Dec, [address] [address] Dec, Major depression, recurrent 296.30 ; Anxiety, generalized 300.02 and No condition on [place] II V71.09 [place] [id number] [address] [place] [address] Dec, Depression, major, recurrent , moderate 296.32 [place] [id number] [address] [place] [address] Dec, Major depressive disorder, r ecurrent episode, moderate 296.32 [place] [id number] [address] [place] [address] Dec, Depression, major, recurrent , moderate 296.32 [place] [id number] [address] [place] [address] Dec, Depression, major, recurrent , moderate 296.[address] [address] Dec, Depression, major, recurrent , moderate 296.32 [facility] [address] [place] [id number] [address] [place] [address] Dec, Depression, major, recurrent , moderate 296.32 [facility] 301 N [place] [id number] [address] [place] [address] Nov, Depression, major, recurrent , moderate 296.32 [facility] [address] [address] Nov, Major depression 296.20 ; So cial phobia 300.23 and No condition on [place] II V71.09 [place] [address] [address] Nov, Depression, major, recurrent , moderate 296.32 [place] [address] [address] Nov, Major depressive disorder, r ecurrent episode, moderate 296.32 and Generalized anxiety disorder 300.02 [facility] 301 N [place] [id number] [address] [place] [address] Nov, Depression, major, recurrent , moderate 296.32 [place] [address] [address] Nov, Depression, major, recurrent , moderate 296.32 [place] [address] [address] October, Generalized anxiety disorder 300.02 ; No condition on [place] II V71.09 and Major depressive disorder, recurrent 296.30 [place] [address] [address] [place] [id number] [address] [place] [address] Sep, [place] [address] [address] Sep, [facility] [address] [place] [id number] [address] [place] [address] Aug, [facility] [address] [id number] [facility] [place] [address] 24 Aug, 2014 [facility] [address] [id number] [facility] [place] [address] 23 Aug, 2014 [facility] [address] [id number] [facility] [place] [address] 23 Aug, 2014 [facility] [address] [id number] [address] [place] [address], [place] [address] 20 Aug, 2014 [facility] [address] [id number] [facility] [place] [address] 20 Aug, 2014 [facility] [address] [id number] [address] [place] [address], [place] [address] 20 Aug, 2014 [facility] [address] [id number] [address] [place] [address], [place] [address] 20 Aug, 2014 [facility] [address] [id number] [address] [place] [address], [place] [address] 13 Aug, 2014 [facility] [address] [id number] [address] [place] [address], [place] [address] 13 Aug, 2014 [facility] [address] [id number] [address] [place] [address], [place] [address] 13 Aug, 2014 [facility] [address] [id number] [address] [place] [address], [place] [address] 13 Aug, 2014 [facility] [address] [id number] [address] [place] [address], [place] [address] 12 Aug, 2014 [facility] [address] [id number] [address] [place] [address], [place] [address] 12 Aug, 2014 [facility] [address] [id number] [address] [place] [address], [place] [address] 10 Aug, 2014 [facility] [address] [id number] [address] [place] [address], [place] [address] 10 Aug, 2014 [facility] [address] [id number] [address] [place] [address], [place] [address] Aug, [facility] [address] [id number] [address] [place] [address], [place] [address] Aug, [facility] [address] [id number] [address] [place] [address], [place] [address] Jul, [facility] [address] [id number] [address] [place] [address], [place] [address] Jul, [facility] [address] [id number] [address] [place] [address], [place] [address] Jul, [facility] [address] [id number] [address] [place] [address], [place] [address] Jul, [facility] [address] [id number] [address] [place] [address], [place] [address] Jul, [facility] [address] [id number] [address] [place] [address], [place] [address] Jul, [facility] [address] [id number] [address] [place] [address], [place] [address] Jun, [facility] [address] [id number] [address] [place] [address], [place] [address] Jun, [facility] [address] [id number] [address] [place] [address], [place] [address] Jun, [facility] [address] [id number] [address] [place] [address], [place] [address] Jun, [facility] [address] [id number] [address] [place] [address], [place] [address] Jun, [facility] [address] [id number] [address] [place] [address], [place] [address] Jun, [facility] [address] [id number] [address] [place] [address], [place] [address] Jun, [facility] [address] [id number] [address] [place] [address], [place] [address] Jun, [facility] [address] [id number] [address] [place] [address], [place] [address] Jun, [facility] [address] [id number] [address] [place] [address], [place] [address] Jun, [facility] [address] [id number] [address] [place] [address], [place] [address] Jun, [facility] [address] [id number] [address] [place] [address], [place] [address] Jun, [facility] [address] [id number] [place] [id number] Jun, [facility] [address] [id number] [address] [place] [address], [place] [address] Jun, [facility] [address] [id number] [address] [place] [address], [place] [address] Jun, [facility] [address] [id number] [address] [place] [address], [place] [address] Jun, [facility] [address] [id number] [address] [place] [address], [place] [address] May, [facility] [address] [id number] [address] [place] [address], [place] [address] May, [facility] [address] [id number] [address] [place] [address], [place] [address] May, [facility] [address] [id number] [address] [place] [address], [place] [address] May, [facility] [address] [id number] [address] [place] [address], [place] [address] Apr, [facility] [address] [id number] [address] [place] [address], [place] [address] Apr, [facility] [address] [id number] [address] [place] [address], [place] [address] Apr, [facility] [address] [id number] [address] [place] [address], [place] [address] Apr, [facility] [address] [id number] [address] [place] [address], [place] [address] Apr, [facility] [address] [id number] [address] [place] [address], [place] [address] Apr, [facility] [address] [id number] [address] [place] [address], [place] [address] Apr, [facility] [address] [id number] [address] [place] [address], [place] [address] Apr, [facility] [address] [id number] [address] [place] [address], [place] [address] Apr, [facility] [address] [id number] [address] [place] [address], [place] [address] Apr, [facility] [address] [id number] [address] [place] [address], [place] [address] Apr, [facility] [address] [id number] [address] [place] [address], [place] [address] Apr, [facility] [address] [id number] [address] [place] [address], [place] [address] Apr, [facility] [address] [id number] [address] [place] [address], [place] [address] Apr, [facility] [address] [id number] [address] [place] [address], [place] [address] Apr, [facility] [address] [id number] [address] [place] [address], [place] [address] Apr, [facility] [address] [id number] [address] [place] [address], [place] [address] Apr, [facility] [address] [id number] [address] [place] [address], [place] [address] Apr, [facility] [address] [id number] [address] [place] [address], [place] [address] Apr, [facility] [address] [id number] [address] [place] [address], [place] [address] Apr, [facility] [address] [id number] [address] [place] [address], [place] [address] Mar, [facility] [address] [id number] [address] [place] [address], [place] [address] Mar, [facility] [address] [id number] [address] [place] [address], [place] [address] Mar, [facility] [address] [id number] [address] [place] [address], [place] [address] Mar, [facility] [address] [id number] [address] [place] [address], [place] [address] Mar, [facility] [address] [id number] [address] [place] [address], [place] [address] Mar, [facility] [address] [id number] [address] [place] [address], [place] [address] Mar, [facility] [address] [id number] [address] [place] [address], [place] [address] Mar, [facility] [address] [id number] [address] [place] [address], [place] [address] Mar, [facility] [address] [id number] [address] [place] [address], [place] [address] Mar, [facility] [address] [id number] [address] [place] [address], [place] [address] Feb, [facility] [address] [id number] [address] [place] [id number] Feb, [facility] [address] [id number] [address] [place] [address], [place] [address] Feb, [facility] [address] [id number] [address] [place] [address], [place] [address] Feb, [facility] [address] [id number] [address] [place] [address], [place] [address] Jan, [facility] [address] [id number] [facility] [place] [address] Jan, [facility] [address] [id number] [facility] [place] [address] Jan, [facility] [address] [id number] [address] [place] [address], [place] [address] Jan, [facility] [address] [id number] [address] [place] [address], [place] [address] Jan, [facility] [address] [id number] [address] [place] [address], [place] [address] Jan, [facility] [address] [id number] [address] [place] [address], [place] [address] Dec, [facility] [address] [id number] [address] [place] [address], [place] [address] Dec, [facility] [address] [id number] [address] [place] [address], [place] [address] Nov, [facility] [address] [id number] [address] [place] [address], [place] [address] Nov, [facility] [address] [id number] [address] [place] [address], [place] [address] Nov, [facility] [address] [id number] [address] [place] [address], [place] [address] Nov, [facility] [address] [id number] [address] [place] [address], [place] [address] Nov, [facility] [address] [id number] [address] [place] [address], [place] [address] Nov, [facility] [address] [id number] [address] [place] [address], [place] [address] Sep, [facility] [address] [id number] [address] [place] [address], [place] [address] Sep, [facility] [address] [id number] [address] [place] [address], [place] [address] Sep, [facility] [address] [id number] [address] [place] [address], [place] [address] Sep, [facility] [address] [id number] [address] [place] [address], [place] [address] Aug, [facility] [address] [id number] [address] [place] [address], [place] [address] Aug, [facility] [address] [id number] [address] [place] [address], [place] [address] Jul, [facility] [address] [id number] [address] [place] [address], [place] [address] Jul, [facility] [address] [id number] [address] [place] [address], [place] [address] Jun, [facility] [address] [id number] [address] [place] [address], [place] [address] Jun, [facility] [address] [id number] [address] [place] [address], [place] [address] Jun, [facility] [address] [id number] [address] [place] [address], [place] [address] Jun, [facility] [address] [id number] [address] [place] [address], [place] [address] May, [facility] [address] [id number] [address] [place] [address], [place] [address] May, [facility] [address] [id number] [address] [place] [address], [place] [address] May, [facility] [address] [id number] [address] [place] [address], [place] [address] May, [facility] [address] [id number] [address] [place] [address], [place] [address] May, [facility] [address] [id number] [address] [place] [address], [place] [address] May, [facility] [address] [id number] [address] [place] [address], [place] [address] Apr, [facility] [address] [id number] [address] [place] [address], [place] [address] Apr, [facility] [address] [id number] [address] [place] [address], [place] [address] Apr, [facility] [address] [id number] [address] [place] [address], [place] [address] Apr, [facility] [address] [id number] [address] [place] [address], [place] [address] Mar, [facility] [address] [id number] [address] [place] [address], [place] [address] Mar, [facility] [address] [id number] [address] [place] [address], [place] [address] Mar, [facility] [address] [id number] [address] [place] [address], [place] [address] Mar, [facility] [address] [id number] [address] [place] [address], [place] [address] Feb, [facility] [address] [facility] [address] [id number] [id number] Jan, [facility] [address] [id number] [address] [place] [address], [place] [address] Jan, [facility] [address] [id number] [address] [place] [address], [place] [address] Dec, [facility] [address] [id number] [address] [place] [address], [place] [address] Dec, [facility] [address] [id number] [address] [place] [address], [place] [address] Dec, [facility] [address] [id number] [place] [id number] Dec, [facility] [address] [id number] [address] [place] [address], [place] [address] Nov, [facility] [address] [id number] [address] [place] [id number] 14 Nov, 2012 [facility] [address] [id number] [address] [place] [id number] 12 Nov, 2012 [facility] [address] [id number] [address] [place] [id number] 11 Nov, 2012 [facility] [address] [id number] [address] [place] [id number] Nov, [facility] [address] [id number] [address] [place] [id number] October, [facility] [address] [facility] [id number] [address] [place] [id number] October, [facility] [address] [facility] [id number] [address] [place] [id number] Aug, [facility] [address] [facility] [id number] [address] [place] [id number] 13 Nov, 2011 IMMUNIZATIONS No Known Immunizations [...] 03/2016 Hospitalization History gastric sleeve Hospitalization History [facility] Trouble with left shoulder blade 08/2017
--- OUTSIDE RECORDS SUMMARY | 2019-11-29 09:12 | XMS REPORT ---
Author Author Curt Hughes [facility] Address [address], [place] [id number] Care Team Providers Care Finishing Area Operator Name Role Phone Saul [facility] JASON Unavailable PROBLEMS Type Condition ICD9-CM Code LSK36-VC Code Onset Dates Condition S tatus SNOMED Code Problem Hyperlipemia E78.5 Active 2809875 4 Problem Insomnia G47.00 Active 715237614 Problem Morbid obesity E66.01 Active 28558 6002 Problem Benign essential hypertension I10 Active 0014790 Problem Renal insufficiency N28.9 Active 579228565 Problem Edema R60.9 Active 693844390 Problem Vitamin D deficiency E55.9 Active 64309709 Problem Mixed obsessional thoughts and acts F42.2 Active 91701579 Problem BMI 45.0-49.9, adult Z68.42 Active 693229709 Problem Other chronic pain G89.29 Active 8 7209974 Problem Severe episode of recurrent major depressive disorder, without psychotic features F33.2 Active 83621747 Problem Callous ulcer, limited to breakdown of skin L98.49 1 Active Problem Metabolic syndrome E88.81 Active 2 33719010 Problem DANIELA (generalized anxiety disorder) F41.1 Active 10596649 Problem Sciatica, right side M54.31 Active [id number] Problem 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 [facility] [facility] [id number] SH[place]ALS[place] [id number] Jan, Benign essential hypertension I10 [facility] [address] [id number] [place] [id number] Dec, Callous ulcer, limited to breakdown of s kin L98.491 and Morbid obesity E66.01 [facility] [address] [facility] [id number] [address] [place] [phone] Dec, [facility] [address] [facility] [id number] [address] [place] [phone] Dec, [facility] [address] [facility] [id number] [address] [place] [phone] Dec, [facility] [address] [facility] [id number] [address] [place] [phone] Dec, [facility] [address] [facility] [id number] [address] [place] [phone] Dec, Severe episode of recurrent major depressive disorder, without psychotic features F33.2 [facility] [address] [facility] [id number] [address] [place] [phone] Dec, DANIELA (generalized anxiety dis order) F41.1 ; Severe episode of recurrent major depressive disorder, without psychotic features F33.2 ; Mixed obsessional thoughts and acts F42.2 and 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 [facility] [id number] [place] [id number] Dec, Morbid obesity E66.01 [facility] [address] [facility] [id number] [address] [place] [phone] Dec, [facility] [address] [facility] [id number] [address] [place] [phone] Dec, [address] [phone] Nov, [facility] [address] [facility] [facility] [id number] [place] [id number] Nov, [facility] [address] [facility] [id number] [address] [place] [phone] Nov, [facility] [address] [place] [id number] [address] [place] [phone] Nov, [facility] [address] [facility] [id number] [address] [place] [phone] Nov, DANIELA (generalized anxiety dis order) F41.1 ; Severe episode of recurrent major depressive disorder, without psychotic features F33.2 ; Mixed obsessional thoughts and acts F42.2 and 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 [facility] [address] [id number] [place] [id number] Nov, Morbid obesity E66.01 [facility] [address] [facility] [id number] [address] [place] [phone] Nov, [place] [address] [place] [id number] [address] [place] [phone] Nov, DANIELA (generalized anxiety dis order) F41.1 ; Mixed obsessional thoughts and acts F42.2 ; Severe episode of recurrent major depressive disorder, without psychotic features F33.2 and 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 [address] [id number] [place] [id number] October, [facility] [address] [facility] [id number] [address] [place] [phone] October, Severe episode of recurrent major depressive disorder, without psychotic features F33.2 [facility] [address] [id number] [place] [id number] October, Morbid obesity E66.01 [facility] [address] [address] [id number] [place] [id number] October, [facility] [address] [facility] [id number] [address] [place] [phone] October, Severe episode of recurrent major depressive disorder, without psychotic features F33.2 ; DANIELA (generalized anxiety disorder) F41.1 ; Mixed obsessional thoughts and acts F42.2 and Dependent personality disorder F60.[address] [id number] [place] [id number] October, Morbid obesity E66.01 [facility] [address] [id number] [address] [place] [address] [phone] Sep, Dental examination Z01.[address] [id number] [place] [address] [id number] Sep, [facility] [address] [place] [id number] [address] [place] [phone] Sep, Sore in mouth K13.79 and Mor bid obesity E66.01 [facility] [address] [place] [phone] Sep, Dental examination Z01.20 [facility] [address] [place] [phone] Sep, Anxiety disorder, unspecifie d F41.[address] [id number] [place], [place] [id number] Sep, Mouth ulcer K12.[address] [id number] [place] [id number] Sep, Morbid obesity E66.[address] [id number] [place] [address] [id number] Sep, Allergic rhinitis, unspecified seasonali ty, unspecified trigger J30.9 and Shortness of breath R06.[address] [id number] SH[place]ALS[place] [id number] Sep, 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 [id number] [place] [address] [id number] Aug, Mouth abscess K12.2 ; Mouth ulcer K12.1 ; Bloating R14.0 and Morbid obesity E66.01 [facility] [address] [id number] [place] [id number] Aug, [facility] [address] [id number] SH[place] [id number] Aug, [facility] [address] [id number] [place] [id number] Jul, Major depressive disorder, recurrent, mo derate F33.1 ; Abscess of arm, left L02.414 ; BMI 45.0-49.9, adult Z68.42 and Morbid obesity E66.01 [facility] [address] [place] [address] A[place] [id number] [place] [id number] Jul, [facility] [address] [id number] [place] [id number] Jul, [facility] [address] [id number] [place] [id number] Jun, Pain in right knee M25.561 and Other chr onic pain G89.29 [facility] [id number] [place] [id number] Jun, Benign essential hypertension I10 ; BMI 45.0-49.9, adult Z68.42 ; Morbid obesity E66.01 ; Vitamin D deficiency E55.9 ; Insomnia G47.00 ; 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 ; Edema R60.9 ; Recurrent major depressive disorder, in partial remission F33.41 ; Chronic fatigue R53.82 ; Acute pain of right knee M25.561 ; Metabolic syndrome E88.81 and Irritable mood R45.4 [facility] [address] [facility] [id number] [address] [place] [phone] Jun, [facility] [address] [place] [address] AVE [id number] [place] [id number] Jun, Irritable mood R45.4 [facility] [address] [facility] [id number] [address] [place] [phone] May, [facility] [address] [facility] [id number] [address] [place] [phone] May, [facility] [address] [facility] [id number] [address] [place] [phone] May, Recurrent major depressive d isorder, in partial remission F33.41 ; Mixed obsessional thoughts and acts F42.2 ; 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 and BMI 45.0-49.9, adult Z68.42 [facility] [address] [facility] [id number] [address] [place] [phone] Apr, [facility] [address] [facility] [id number] [address] [place] [phone] Apr, [facility] [address] [facility] [id number] [address] [place] [phone] Apr, [place] [address] [place] [id number] [address] [place] [phone] Apr, [facility] [address] [facility] [id number] [address] [place] [phone] Mar, Mixed obsessional thoughts a nd acts F42.2 ; Recurrent major depressive disorder, in partial remission F33.41 ; DANIELA (generalized anxiety disorder) F41.1 and BMI 45.0-49.9, adult Z68.42 [facility] [address] [id number] [place] [id number] Mar, [facility] [address] [id number] [place] [id number] Mar, BMI 45.0-49.9, adult Z68.42 ; Instabilit y of right knee joint M25.361 and Rash R21 [facility] [address] [facility] [id number] [address] [place] [phone] Jan, Recurrent major depressive d isorder, in partial remission F33.41 ; Mixed obsessional thoughts and acts F42.2 and BMI 45.0-49.9, adult Z68.42 [facility] [address] [id number] [place] [id number] Jan, [facility] [address] [id number] [place], [place] [id number] Jan, Benign essential hypertension I10 ; BMI 45.0-49.9, adult Z68.42 ; Metabolic syndrome E88.81 and Allergic rhinitis, unspecified seasonality, unspecified trigger J30.9 [facility] [address] [facility] [id number] [address] [place] [phone] Dec, DANIELA (generalized anxiety dis order) F41.1 and Depressive disorder, not elsewhere classified F32.9 [facility] [address] [id number] [place] [id number] Dec, Recurrent major depressive disorder, in partial remission F33.41 [facility] [address] [address] [id number] [place] [id number] Dec, [facility] [address] [id number] [place] [id number] Nov, [facility] [id number] [place] [address] [id number] Nov, Recurrent major depressive disorder, in partial remission F33.41 [facility] [address] [facility] [id number] [address] [place] [phone] Nov, Recurrent major depressive d isorder, in partial remission F33.41 ; Mixed obsessional thoughts and acts F42.2 ; DANIELA (generalized anxiety disorder) F41.1 and BMI 45.0-49.9, adult Z68.42 [facility] [address] [address] [id number] [place] [id number] Nov, [facility] [address] [id number] [place] [id number] Nov, Other conjunctivitis of both eyes H10.89 and Sciatica, right side M54.31 [facility] [address] [address] [id number] [place] [id number] Nov, [facility] [address] [id number] [place] [id number] Nov, [facility] [address] [id number] [place] [id number] October, [facility] [address] [id number] [place] [id number] October, [facility] [address] [facility] [id number] [address] [place] [phone] October, BMI 45.0-49.9, adult Z68.42 ; Mixed obsessional thoughts and acts F42.2 ; Recurrent major depressive disorder, in partial remission F33.41 and DANIELA (generalized anxiety disorder) F41.1 [facility] [address] [id number] [place] [id number] October, Benign essential hypertension I10 ; Morb id obesity E66.01 and BMI 45.0-49.9, adult Z68.42 [facility] [address] [id number] [place] [id number] Sep, [facility] [address] [id number] [place], [place] [id number] Sep, [facility] [address] [id number] [place] [id number] Sep, [facility] [address] [id number] [place], [place] [id number] Sep, Hospital discharge follow-up Z09 ; Aller gic rhinitis, unspecified seasonality, unspecified trigger J30.9 and Shortness of breath R06.02 [facility] [address] [id number] [place] [id number] Sep, Recurrent major depressive disorder, in partial remission F33.41 [facility] [address] [id number] [place], [place] [id number] Aug, Irritable mood R45.4 [facility] [address] [facility] [id number] [address] [place] [phone] Aug, [facility] [address] [id number] [place] [id number] Jul, Benign essential hypertension I10 ; Robert a R60.9 and Impacted cerumen of left ear H61.22 [facility] [address] [facility] [id number] [address] [place] [phone] 14 Jul, 2017 Major depression F32.9 ; Rec urrent major depressive disorder, in partial remission F33.41 and Anxiety F41.9 [place] [address] [facility] [id number] [address] [place] [phone] Jun, Major depression F32.9 ; Rec urrent major depressive disorder, in partial remission F33.41 and Anxiety F41.[address] [place] [address] [id number] [place]ALS, [place] [id number] Jun, Major depression F32.9 ; Morbid obesity E66.01 ; Irritable mood R45.4 ; Hand weakness R29.898 and Vitamin D deficiency E55.[address] [place] [address] [id number] [place] [id number] Jun, [place] [id number] [place] [address] [id number] May, Major depression F32.9 [place] [address] [facility] [id number] [address] [place] [phone] May, Major depression F32.[address] [place] [address] [id number] [place] [address] [id number] May, BMI 50.0-59.9, adult Z68.43 ; Major depr ession F32.9 ; Anxiety F41.9 ; Hypertrophic toenail L60.2 and Pain of left great toe M79.[address] [place] [address] [id number] [place], [place] [id number] May, Recurrent major depressive disorder, in partial remission F33.41 [place] [address] [facility] [id number] [address] [place] [phone] Apr, [facility] [address] [address] [id number] [place] [id number] Apr, [facility] [address] [facility] [id number] [address] [place] [phone] Apr, Major depression F32.9 [facility] [address] [id number] [place] [id number] Apr, Severe episode of recurrent major depres sive disorder, without psychotic features F33.2 ; Anxiety F41.9 and Insomnia G47.00 [facility] [address] [id number] [place] [id number] Apr, [facility] [address] [facility] [id number] [address] [place] [phone] Apr, [facility] [address] [id number] [place] [id number] Apr, [facility] [address] [id number] [place] [id number] Mar, [facility] [address] [id number] [place] [id number] Mar, Allergic conjunctivitis of both eyes H10 .13 [facility] [address] [facility] [id number] [address] [place] [phone] Mar, Major depression F32.9 [facility] [address] [id number] [place], [place] [id number] Mar, Metabolic syndrome E88.81 ; History of g astric bypass Z98.890 ; Benign essential hypertension I10 ; Allergic conjunctivitis of both eyes H10.13 and Morbid obesity E66.01 [facility] [address] [facility] [id number] [address] [place] [phone] Mar, Major depression F32.9 [facility] [address] [id number] [place], [place] [id number] Feb, [facility] [address] [facility] [id number] [address] [place] [phone] Feb, Major depression F32.9 [facility] [address] [id number] [place] [id number] Feb, Subacute maxillary sinusitis J01.00 and Bronchitis J40 [facility] [address] [facility] [id number] [address] [place] [phone] Feb, Major depressive disorder, r ecurrent, moderate F33.1 [facility] [address] [id number] [place], [place] [id number] Jan, [facility] [address] [id number] [place] [address] [id number] Jan, Acute non-recurrent maxillary sinusitis J01.00 and Skin tag L91.8 [facility] [place] [id number] [facility] [address] [id number] [place] [id number] Jan, Cough R05 and Sinus congestion R09.81 [facility] [address] [facility] [facility] [facility] [address] [id number] [place] [id number] Jan, [facility] [address] [id number] [place] [address] [id number] Jan, Benign essential hypertension I10 ; Hist ory of gastric bypass Z98.890 and Nausea and vomiting in adult R11.2 [place] [address] [place] [id number] [address] [place] [phone] Jan, Major depressive disorder, r ecurrent, moderate F33.1 [facility] [address] [facility] [id number] [address] [place] [phone] Dec, Insomnia G47.00 ; Recurrent major depressive disorder, in partial remission F33.41 and Morbid obesity E66.01 [facility] [address] [id number] [place]OALS, [place] [id number] Dec, [facility] [address] [id number] [place] [id number] Dec, Chronic bacterial conjunctivitis of left eye H10.402 [facility] [address] [id number] [place], [place] [id number] Nov, [address] [id number] [place]ALS[place] [id number] Nov, Dental examination Z01.[address] [id number] [place], [place] [id number] 23 Nov, 2016 Benign essential hypertension I10 ; Hist ory of gastric bypass Z98.890 and Nausea and vomiting in adult R11.2 [facility] [address] [place] [phone] 13 Nov, 2016 Major depressive disorder, r ecurrent, moderate F33.1 ; Generalized anxiety disorder F41.1 and Insomnia due to other mental disorder F51.05 [place] [address] [place] [id number] [address] [place] [phone] 12 Nov, 2016 Recurrent major depressive d isorder, in partial remission F33.41 ; Insomnia G47.00 and Morbid obesity E66.01 [facility] [address] [id number] [place] [id number] October, Abscess of left arm L02.414 [place] [address] [place] [phone] October, Morbid obesity E66.01 ; Lida r depression F32.9 and Recurrent major depressive disorder, in partial remission F33.[address] [id number] [place], [place] [id number] Sep, Benign essential hypertension I10 ; Morb id obesity E66.01 ; S/P gastric bypass Z98.84 ; Abscess L02.91 and Chronic bacterial conjunctivitis of left eye H10.[address] [id number] [place] [address] [id number] 17 Sep, 2016 Dental examination Z01.20 [facility] [address] [facility] [id number] [address] [place] [phone] 11 Sep, 2016 Morbid obesity E66.01 ; Lida r depression F32.9 and Recurrent major depressive disorder, in partial remission F33.41 [facility] [address] [facility] [id number] [address] [place] [phone] Jul, [facility] [address] [facility] [id number] [address] [place] [phone] Jul, Major depressive disorder, r ecurrent, moderate F33.1 [facility] [address] [facility] [id number] [address] [place] [phone] Jul, Major depressive disorder, r ecurrent, moderate F33.1 and Generalized anxiety disorder F41.1 [facility] [id number] [place] [address] [id number] Jul, Cough R05 [place] [address] [facility] [id number] [address] [place] [phone] Jul, Morbid obesity E66.01 ; Lida r depression F32.9 and Recurrent major depressive disorder, in partial remission F33.41 [facility] [id number] [place] [id number] Jul, [facility] [place] [id number] [place] [id number] Jul, [facility] [place] [id number] [place] [id number] Jul, Gastroenteritis K52.9 and Cough R[id number] [place] [address] [id number] Jun, Acute bacterial conjunctivitis of left e ye H10.32 [facility] [address] [facility] [id number] [address] [place] [phone] Jun, [facility] [address] [facility] [id number] [address] [place] [phone] Jun, Recurrent major depressive d isorder, in partial remission F33.41 [facility] [address] [facility] [id number] [address] [place] [phone] May, Major depression F32.9 and M orbid obesity E66.01 [facility] [address] [facility] [id number] [address] [place] [phone] May, [facility] [address] [facility] [id number] [place] [address] [id number] May, Thrush B37.0 [facility] [address] [facility] [id number] [address] [place] [phone] Apr, Major depressive disorder, r ecurrent, moderate F33.1 [facility] [address] [facility] [id number] [address] [place] [address] Apr, Insomnia G47.00 ; Major depr ession F32.9 and Recurrent major depressive disorder, in partial remission F33.41 [place] [address] [address] [facility] [id number] [address] [place] [id number] 11 Apr, 2016 [place] [address] [address] [facility] [id number] [address] [place] [id number] 02 Apr, 2016 Major depression F32.9 and R ecurrent major depressive disorder, in partial remission F33.[address] [id number] [place] [id number] Mar, Benign essential hypertension I10 ; Morb id obesity E66.01 ; Impacted cerumen of both ears H61.23 ; Laceration of finger of right hand, initial encounter S61.219A and Encounter for immunization Z23 [facility] [address] [facility] [id number] [address] [place] [id number] 17 Mar, 2016 [place] [address] [address] [facility] [id number] [address] [place] [phone] Mar, [place] [address] [address] [facility] [id number] [address] [place] [address] Mar, [id number] [place] [id number] Feb, Nausea R11.0 ; Blood in the stool K92.1 and Benign essential hypertension I10 [place] [address] [address] [facility] [id number] [address] [place] [address] Feb, Major depression F32.9 and R ecurrent major depressive disorder, in partial remission F33.41 [facility] [address] [id number] [place] [id number] Feb, [facility] [address] [id number] [place] [id number] Feb, Recurrent major depressive disorder, in partial remission F33.[address] [facility] [address] [id number] [place] [id number] Jan, [facility] [address] [id number] [place] [id number] Jan, Benign essential hypertension I10 ; Robert a R60.9 and Hyperlipidemia, unspecified hyperlipidemia type E78.5 [facility] [address] [id number] [place] [id number] Jan, Recurrent major depressive disorder, in partial remission F33.41 [facility] [address] [id number] [place] [id number] Jan, [facility] [address] [id number] [place] [id number] Jan, [facility] [address] [address] [id number] [place] [id number] Jan, [facility] [address] [facility] [id number] [address] [place] [address] Jan, [facility] [address] [facility] [id number] [address] [place] [address] Dec, [facility] [address] [facility] [id number] [address] [place] [phone] Nov, [facility] [address] [facility] [id number] [address] [place] [phone] Nov, Major depression F32.9 [facility] [address] [facility] [id number] [address] [place] [address] Nov, [place] [address] [address] [facility] [id number] [address] [place] [address] Nov, [place] [address] [address] [facility] [id number] [address] [place] [address] Nov, Major depressive disorder, r ecurrent episode, mild F33.[address] [facility] [address] [id number] [place] [id number] Nov, [facility] [id number] [place] [address] [id number] October, Left elbow pain M25.522 and Other season al allergic rhinitis J30.[address] [place] [id number] [facility] [id number] [place] [address] [id number] October, [place] [address] [address] [place] [id number] [address] [place] [address] October, Major depressive disorder, r ecurrent, moderate F33.1 [place] [address] [address] [facility] [id number] [address] [place] [address] October, Major depression F32.9 [place] [address] [address] [facility] [id number] [address] [place] [phone] Sep, Spencer or callus L84 and Onych omycosis B35.1 [place] [address] [address] [place] [id number] [address] [place] [phone] Sep, Major depressive disorder, r ecurrent, moderate F33.1 [place] [address] [facility] [id number] [address] [place] [address] Sep, Major depression F32.9 [place] [address] [facility] [id number] [address] [place] [phone] Sep, Moderate episode of recurren t major depressive disorder F33.1 [facility] [address] [id number] [place] [id number] Sep, Muscle strain T14.8 [place] [address] [facility] [id number] [address] [place] [phone] Aug, Major depression F32.9 [facility] [address] [facility] [id number] [address] [place] [address] Aug, Major depression F32.9 [facility] [address] [facility] [id number] [address] [place] [phone] Jul, Morbid obesity E66.01 and Ma cora depression F32.9 [facility] [address] [facility] [id number] [address] [place] [address] Jul, Depression, major, recurrent , moderate F33.[address] [id number] [place] [address] [id number] Jul, [facility] [address] [facility] [id number] [address] [place] [address] Jul, [facility] [address] [facility] [id number] [address] [place] [id number] Jul, Major depression F32.9 and M orbid obesity E66.[address] [id number] [place] [address] [id number] Jul, Type II diabetes mellitus E11.9 ; Callus of foot L84 ; Benign essential hypertension I10 and Renal insufficiency N28.9 [facility] [address] [facility] [id number] [address] [place] [phone] Jul, Depression, major, recurrent , moderate F33.1 [facility] [address] [facility] [id number] [address] [place] [address] Jul, Major depression F32.9 [facility] [address] [facility] [id number] [address] [place] [address] Jul, [facility] [address] [facility] [id number] [address] [place] [phone] Jun, Major depression F32.9 [facility] [address] [facility] [id number] [address] [place], [place] [id number] Jun, Major depressive disorder, r ecurrent, moderate F33.1 [place] [address] [address] [place] [address] Jun, [place] [address] [address] Jun, Major depressive disorder, r ecurrent, moderate F33.1 and Major depression F32.[address] [id number] [place] [address] [id number] Jun, Type II diabetes mellitus E11.9 [place] [address] [place] [address] Jun, Depression, major, recurrent , moderate F33.1 [place] [address] [phone] May, Major depressive disorder, r ecurrent, moderate F33.1 [place] [address] [address] [place] [id number] [address] [place] [address] May, [address] [id number] [place] [address] [id number] May, Edema R60.9 [place] [address] [address] [place] [id number] [address] [place] [address] May, Insomnia G47.00 and Major de pression F32.[address] [id number] [place] [address] [id number] 15 May, 2015 Morbid obesity E66.01 ; Edema R60.9 ; Sh ortness of breath R06.02 ; Benign essential hypertension I10 and Renal insufficiency N28.[address] [id number] [place] [address] [id number] 14 May, 2015 Hyperlipemia 272.4 and Renal insufficien cy N28.9 [place] [address] [address] [place] [id number] [address] [place] [phone] Apr, Major depression F32.9 [facility] [address] [facility] [id number] [address] [place] [phone] Apr, [place] [address] [facility] [id number] [address] [place] [phone] Apr, Major depressive disorder, r ecurrent, moderate F33.1 [facility] [address] [id number] [place] [id number] Apr, Type II diabetes mellitus E11.9 ; Benign essential hypertension I10 ; Edema R60.9 and Renal insufficiency N28.9 [place] [address] [facility] [id number] [address] [place] [phone] Mar, Major depressive disorder, r ecurrent, moderate F33.1 [place] [address] [address] [place] [id number] [address] [place] [phone] Mar, [place] [id number] [place] [address] Mar, Major depression F32.9 [facility] [address] [facility] [address] [id number] [place] [id number] Mar, Morbid obesity E66.01 ; Benign essential hypertension I10 and Type II diabetes mellitus E11.9 [place] [address] [address] [place] [id number] [address] [place] [address] Feb, Major depressive disorder, r ecurrent, moderate F33.1 [place] [address] [facility] [id number] [address] [place] [phone] Feb, Major depressive disorder, r ecurrent episode, in partial or unspecified remission 296.35 ; Anxiety state, unspecified 300.00 and Morbid obesity 278.01 [place] [address] [facility] [id number] [address] [place] [address] Feb, [facility] [address] [id number] [place] [id number] Feb, Vomiting 787.03 and Viral syndrome 079.9 9 [place] [address] [facility] [id number] [address] [place] [phone] 15 Feb, 2015 Major depression, recurrent 296.30 ; Generalized anxiety disorder 300.02 and No condition on Rodanthe II V71.09 [facility] [address] [place] [address] AVE [id number] [place] [id number] Feb, Skin tag 701.9 [facility] [address] [facility] [id number] [address] [place] [phone] Feb, [facility] [address] [facility] [id number] [address] [place] [address] Jan, Depression, major, recurrent , moderate 296.[address] [id number] [place] [address] [id number] Jan, Nausea and vomiting 787.01 ; Rib pain on right side 786.50 and Fall on or from sidewalk curb E880.1 [facility] [address] [facility] [id number] [address] [place] [phone] Jan, [facility] [address] [facility] [id number] [address] [place] [phone] Jan, Major depressive disorder, r ecurrent episode, in partial or unspecified remission 296.35 and Anxiety state, unspecified 300.[address] [id number] [place] [id number] Jan, [facility] [address] [facility] [id number] [address] [place] [phone] Jan, Depression, major, recurrent , moderate 296.32 [facility] [address] [facility] [id number] [address] [place] [phone] Jan, Major depression, recurrent 296.30 ; No condition on Rodanthe II V71.09 and No condition on axis III V71.[address] [id number] [place] [id number] Jan, Drug-induced nausea and vomiting 787.01 [facility] [address] [facility] [id number] [address] [place] [address] Jan, Depression, major, recurrent , moderate 296.[address] [address] Dec, Depression, major, recurrent , moderate 296.32 [facility] [id number] [place] [address] [id number] Dec, Morbid obesity 278.01 ; Metabolic syndro me 277.7 ; Hyperlipemia 272.4 ; Benign essential hypertension 401.1 ; Dietary counseling V65.3 ; Exercise counseling V65.41 and Inflamed skin tag 701.[address] [address] Dec, Depression, major, recurrent , moderate 296.32 [place] [address] [address] Dec, [address] [address] Dec, Major depression, recurrent 296.30 ; Anxiety, generalized 300.02 and No condition on Rodanthe II V71.[address] [address] Dec, Depression, major, recurrent , moderate 296.32 [place] [address] [address] Dec, Major depressive disorder, r ecurrent episode, moderate 296.32 [place] [address] [address] Dec, Depression, major, recurrent , moderate 296.[address] [address] Dec, Depression, major, recurrent , moderate 296.32 [place] [address] [address] [place] [id number] [address] [place] [address] Dec, Depression, major, recurrent , moderate 296.32 [place] [id number] [place] [address] Dec, Depression, major, recurrent , moderate 296.32 [facility] [address] [address] Nov, Depression, major, recurrent , moderate 296.32 [facility] [address] [address] Nov, Major depression 296.20 ; So cial phobia 300.23 and No condition on Rodanthe II V71.09 [facility] [address] [address] Nov, Depression, major, recurrent , moderate 296.32 [place] [address] [address] Nov, Major depressive disorder, r ecurrent episode, moderate 296.32 and Generalized anxiety disorder 300.02 [place] [address] [address] Nov, Depression, major, recurrent , moderate 296.32 [place] [address] [address] Nov, Depression, major, recurrent , moderate 296.32 [place] [address] [address] October, Generalized anxiety disorder 300.02 ; No condition on Rodanthe II V71.09 and Major depressive disorder, recurrent 296.30 [facility] [address] [address] Sep, [place] [address] [address] Sep, [place] [address] [address] Aug, [facility] [address] [address] Aug, [facility] [place] [facility] [address] [id number] [facility] [place] [address] 23 Aug, 2014 [facility] [address] [id number] [facility] [place] [address] 23 Aug, 2014 [facility] [address] [id number] [facility] [place] [address] 20 Aug, 2014 [facility] [address] [id number] [address] [place] [address], [place] [address] 20 Aug, 2014 [facility] [address] [id number] [address] [place] [address], [place] [address] 20 Aug, 2014 [facility] [address] [id number] [address] [place] [address], [place] [address] 20 Aug, 2014 [facility] [address] [id number] [address] [place] [address], [place] [address] 13 Aug, 2014 [facility] [address] [id number] [address] [place] [address], [place] [address] 13 Aug, 2014 [facility] [address] [id number] [address] [place] [address], [place] [address] 13 Aug, 2014 [facility] [address] [id number] [address] [place] [address], [place] [address] 13 Aug, 2014 [facility] [address] [id number] [address] [place] [address], [place] [address] 12 Aug, 2014 [facility] [address] [id number] [address] [place] [address], [place] [address] 12 Aug, 2014 [facility] [address] [id number] [address] [place] [address], [place] [address] 10 Aug, 2014 [facility] [place] [facility] [address] [id number] [address] [place] [address], [place] [address] 10 Aug, 2014 [facility] [address] [id number] [address] [place] [address], [place] [address] 09 Aug, 2014 [facility] [address] [id number] [address] [place] [address], [place] [address] Aug, [facility] [address] [id number] [address] [place] [address], [place] [address] Jul, [facility] [place] [facility] [address] [id number] [address] [place] [address], [place] [address] Jul, [facility] [place] [facility] [address] [id number] [address] [place] [address], [place] [address] Jul, [facility] [place] [facility] [address] [id number] [address] [place] [address], [place] [address] Jul, [facility] [place] [facility] [address] [id number] [address] [place] [address], [place] [address] Jul, [facility] [place] [facility] [address] [id number] [address] [place] [address], [place] [address] Jul, [facility] [place] [facility] [address] [id number] [address] [place] [address], [place] [address] Jun, [facility] [place] [facility] [address] [id number] [address] [place] [address], [place] [address] Jun, [facility] [place] [facility] [address] [id number] [address] [place] [address], [place] [address] Jun, [facility] [place] [facility] [address] [id number] [address] [place] [address], [place] [address] Jun, [facility] [place] [facility] [address] [id number] [address] [place] [address], [place] [address] Jun, [facility] [place] [facility] [address] [id number] [address] [place] [address], [place] [address] Jun, [facility] [place] [facility] [address] [id number] [address] [place] [address], [place] [address] Jun, [facility] [place] [facility] [address] [id number] [address] [place] [address], [place] [address] Jun, [facility] [place] [facility] [address] [id number] [address] [place] [address], [place] [address] Jun, [facility] [place] [facility] [address] [id number] [address] [place] [address], [place] [address] Jun, [facility] [address] [id number] [address] [place] [address], [place] [address] Jun, [facility] [address] [id number] [address] [place] [address], [place] [address] Jun, [facility] [address] [id number] [place] [id number] Jun, [facility] [address] [id number] [address] [place] [address], [place] [address] Jun, [facility] [address] [id number] [address] [place] [address], [place] [address] Jun, [facility] [address] [id number] [address] [place] [address], [place] [address] Jun, [facility] [address] [id number] [address] [place] [address], [place] [address] May, [facility] [address] [id number] [address] [place] [address], [place] [address] May, [facility] [address] [id number] [address] [place] [address], [place] [address] May, [facility] [address] [id number] [address] [place] [address], [place] [address] May, [facility] [address] [id number] [address] [place] [address], [place] [address] Apr, [facility] [address] [id number] [address] [place] [address], [place] [address] Apr, [facility] [address] [id number] [address] [place] [address], [place] [address] Apr, [facility] [address] [id number] [address] [place] [address], [place] [address] Apr, [facility] [address] [id number] [address] [place] [address], [place] [address] Apr, [facility] [address] [id number] [address] [place] [address], [place] [address] Apr, [facility] [place] [facility] [address] [id number] [address] [place] [address], [place] [address] Apr, [facility] [place] [facility] [address] [id number] [address] [place] [address], [place] [address] Apr, [facility] [place] [facility] [address] [id number] [address] [place] [address], [place] [address] Apr, [facility] [place] [facility] [address] [id number] [address] [place] [address], [place] [address] Apr, [facility] [place] [facility] [address] [id number] [address] [place] [address], [place] [address] Apr, [facility] [place] [facility] [address] [id number] [address] [place] [address], [place] [address] Apr, [facility] [place] [facility] [address] [id number] [address] [place] [address], [place] [address] Apr, [facility] [place] [facility] [address] [id number] [address] [place] [address], [place] [address] Apr, [facility] [place] [facility] [address] [id number] [address] [place] [address], [place] [address] Apr, [facility] [address] [id number] [address] [place] [address], [place] [address] Apr, [facility] [address] [id number] [address] [place] [address], [place] [address] Apr, [facility] [address] [id number] [address] [place] [address], [place] [address] Apr, [facility] [address] [id number] [address] [place] [address], [place] [address] Apr, [facility] [address] [id number] [address] [place] [address], [place] [address] Apr, [facility] [address] [id number] [address] [place] [address], [place] [address] Mar, [facility] [address] [id number] [address] [place] [address], [place] [address] Mar, [facility] [address] [id number] [address] [place] [address], [place] [address] Mar, [facility] [address] [id number] [address] [place] [address], [place] [address] Mar, [facility] [address] [id number] [address] [place] [address], [place] [address] Mar, [facility] [address] [id number] [address] [place] [address], [place] [address] Mar, [facility] [address] [id number] [address] [place] [address], [place] [address] Mar, [facility] [address] [id number] [address] [place] [address], [place] [address] Mar, [facility] [address] [id number] [address] [place] [address], [place] [address] Mar, [facility] [address] [id number] [address] [place] [address], [place] [address] Mar, [facility] [address] [id number] [address] [place] [address], [place] [address] Feb, [facility] [address] [id number] [address] [place] [address], [place] [address] Feb, [facility] [address] [id number] [address] [place] [address], [place] [address] Feb, [facility] [address] [id number] [address] [place] [address], [place] [address] Feb, [facility] [address] [id number] [address] [place] [address], [place] [address] Jan, [facility] [address] [id number] [address] [place] [address], [place] [address] Jan, [facility] [address] [id number] [facility] [place] [address] Jan, [facility] [address] [id number] [address] [place] [address], [place] [address] Jan, [facility] [address] [id number] [address] [place] [address], [place] [address] Jan, [facility] [address] [id number] [address] [place] [address], [place] [address] Jan, [facility] [address] [id number] [address] [place] [address], [place] [address] Dec, [facility] [address] [id number] [address] [place] [address], [place] [address] Dec, [facility] [address] [id number] [address] [place] [address], [place] [address] Nov, [facility] [address] [id number] [address] [place] [address], [place] [address] Nov, [facility] [address] [id number] [address] [place] [address], [place] [address] Nov, [facility] [address] [id number] [address] [place] [address], [place] [address] Nov, [facility] [address] [id number] [address] [place] [address], [place] [address] Nov, [facility] [address] [id number] [address] [place] [address], [place] [address] Nov, [facility] [address] [id number] [address] [place] [address], [place] [address] Sep, [facility] [address] [id number] [address] [place] [address], [place] [address] Sep, [facility] [address] [id number] [address] [place] [address], [place] [address] Sep, [facility] [address] [id number] [address] [place] [address], [place] [address] Sep, [facility] [place] [address] [id number] [address] [place] [address], [place] [address] Aug, [facility] [address] [id number] [address] [place] [address], [place] [address] Aug, [facility] [place] [address] [id number] [address] [place] [address], [place] [address] Jul, [facility] [address] [id number] [address] [place] [address], [place] [address] Jul, [facility] [address] [id number] [address] [place] [address], [place] [address] Jun, [facility] [address] [id number] [address] [place] [address], [place] [address] Jun, [facility] [place] [address] [id number] [address] [place] [address], [place] [address] Jun, [facility] [address] [id number] [address] [place] [address], [place] [address] Jun, [facility] [place] [address] [id number] [address] [place] [address], [place] [address] May, [facility] [address] [id number] [address] [place] [address], [place] [address] May, [facility] [address] [id number] [address] [place] [address], [place] [address] May, [facility] [address] [id number] [address] [place] [address], [place] [address] May, [facility] [address] [id number] [address] [place] [address], [place] [address] May, [facility] [address] [id number] [address] [place] [address], [place] [address] May, [facility] [address] [id number] [address] [place] [address], [place] [address] Apr, [facility] [address] [id number] [address] [place] [address], [place] [address] Apr, [facility] [address] [id number] [address] [place] [address], [place] [address] Apr, [facility] [address] [id number] [address] [place] [address], [place] [address] Apr, [facility] [address] [id number] [address] [place] [address], [place] [address] Mar, [facility] [address] [id number] [address] [place] [address], [place] [address] Mar, [facility] [address] [id number] [address] [place] [address], [place] [address] Mar, [facility] [address] [id number] [address] [place] [address], [place] [address] Mar, [facility] [address] [id number] [address] [place] [address], [place] [address] Feb, [facility] [address] [id number] [id number] Jan, [facility] [address] [id number] [address] [place] [address], [place] [address] Jan, [facility] [address] [id number] [address] [place] [address], [place] [address] Dec, [facility] [address] [id number] [address] [place] [address], [place] [address] Dec, [facility] [address] [id number] [address] [place] [address] Dec, [facility] [address] [id number] [place] [id number] Dec, [facility] [address] [id number] [address] [place] [address], [place] [address] Nov, [facility] [address] [id number] [address] [place] [address], [place] [address] Nov, [facility] [address] [id number] [address] [place] [id number] 12 Nov, 2012 [facility] [address] [id number] [address] [place] [address] Nov, [facility] [address] [id number] [address] [place] [id number] Nov, [facility] [address] [facility] [id number] [address] [place] [id number] October, [facility] [address] [facility] [id number] [address] [place] [id number] October, [facility] [address] [facility] [id number] [address] [place] [id number] Aug, [facility] [address] [facility] [id number] [address] [place] [id number] 13 Nov, 2011 IMMUNIZATIONS No Known Immunizations SOCIAL HISTORY Never Assessed REASON FOR VISIT PLAN OF CARE VITAL SIGNS MEDICATIONS Unknown Medications RESULTS No Results PROCEDURES Procedure Date Ordered Result Body Site COMPREHENSIVE CARE MANAGEMENT Jan 31, 2014 INSTRUCTIONS MEDICATIONS ADMINISTERED No Known Medications [...] 03/2016 Hospitalization History gastric sleeve Hospitalization History [facility] ER Trouble with left shoulder blade 08/2017
--- OUTSIDE RECORDS SUMMARY | 2019-11-29 09:12 | XMS REPORT ---
Author Author Curt SMART Organization [facility] Address [address] [place] [address] Care Team Providers Care Detective Private Eye Name Role Phone AMMY SMART Unavailable PROBLEMS Type Condition ICD9-CM Code [id number] Code Onset Dates Condition S tatus SNOMED Code Problem Hyperlipemia E78.5 Active 5311711 4 Problem Insomnia G47.00 Active 580281736 Problem Morbid obesity E66.01 Active 43665 6002 Problem Benign essential hypertension I10 Active 2734322 Problem Renal insufficiency N28.9 Active 272949966 Problem Edema R60.9 Active 535059057 Problem Vitamin D deficiency E55.9 Active 60402985 Problem Mixed obsessional thoughts and acts F42.2 Active 20007429 Problem BMI 45.0-49.9, adult Z68.42 Active 346331831 Problem Other chronic pain G89.29 Active 8 1104619 Problem Severe episode of recurrent major depressive disorder, without psychotic features F33.2 Active 25022115 Problem Callous ulcer, limited to breakdown of skin L98.49 1 Active Problem Metabolic syndrome E88.81 Active 2 35040202 Problem DANIELA (generalized anxiety disorder) F41.1 Active 10777888 Problem Sciatica, right side M54.31 Active [id number] Problem 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 Active 86283255 Problem Chronic fatigue R53.82 Active 8422 9001 ALLERGIES No Information ENCOUNTERS Encounter Location Date Diagnosis [facility] [address] [address] [id number] [id number] Jan, [facility] [address] [facility] [id number] [address] [place] [address] Jan, [facility] [address] [id number], [place] [id number] Jan, [facility] [address] [id number], [place] [id number] Dec, Callous ulcer, limited to breakdown of s kin L98.491 and Morbid obesity E66.01 [facility] [address] [facility] [id number] [address] [place] [address] Dec, [facility] [address] [facility] [id number] [address] [place] [phone] Dec, [facility] [address] [facility] [id number] [address] [place] [address] Dec, [facility] [address] [facility] [id number] [address] [place] [address] Dec, [facility] [address] [facility] [id number] [address] [place] [address] Dec, Severe episode of recurrent major depressive disorder, without psychotic features F33.2 [facility] [address] [facility] [id number] [address] [place] [phone] Dec, DANIELA (generalized anxiety dis order) F41.1 ; Severe episode of recurrent major depressive disorder, without psychotic features F33.2 ; Mixed obsessional thoughts and acts F42.2 and Dependent personality disorder F60.[address] [id number], [place] [id number] Dec, Morbid obesity E66.01 [facility] [address] [facility] [id number] [address] [place] [address] Dec, [facility] [address] [facility] [id number] [address] [place] [phone] Dec, [address] [address] Nov, [id number] [place] [id number] Nov, [facility] [address] [facility] [id number] [address] [place] [address] Nov, [facility] [address] [facility] [id number] [address] [place] [address] Nov, [facility] [address] [facility] [id number] [address] [place] [address] Nov, DANIELA (generalized anxiety dis order) F41.1 ; Severe episode of recurrent major depressive disorder, without psychotic features F33.2 ; Mixed obsessional thoughts and acts F42.2 and 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 [facility] [address] [id number], [place] [id number] Nov, Morbid obesity E66.01 [facility] [address] [facility] [id number] [address] [place] [address] Nov, [facility] [address] [facility] [id number] [address] [place] [phone] Nov, DANIELA (generalized anxiety dis order) F41.1 ; Mixed obsessional thoughts and acts F42.2 ; Severe episode of recurrent major depressive disorder, without psychotic features F33.2 and 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 [facility] [place] [id number], [place] [id number] October, Morbid obesity E66.01 [place] [id number] [facility] [address] [id number], [place] [id number] October, Benign essential hypertension I10 and Mo rbid obesity E66.01 [facility] [address] [facility] [address] [id number], [place] [id number] October, [facility] [address] [facility] [id number] [address] [place] [address] October, Severe episode of recurrent major depressive disorder, without psychotic features F33.2 [facility] [address] [id number], [place] [id number] October, Morbid obesity E66.01 [facility] [address] [id number], [place] [id number] October, [facility] [address] [facility] [id number] [address] [place] [address] October, Severe episode of recurrent major depressive disorder, without psychotic features F33.2 ; DANIELA (generalized anxiety disorder) F41.1 ; Mixed obsessional thoughts and acts F42.2 and Dependent personality disorder F60.[address] [id number], [place] [id number] October, Morbid obesity E66.01 [facility] [address] [place] [id number] [address] [place] [address] [id number] Sep, Dental examination Z01.[address] [id number], [place] [id number] Sep, [facility] [address] [place] [id number] [address] [place] [address] Sep, Sore in mouth K13.79 and Mor bid obesity E66.01 [facility] [address] [place] [id number] [address] [place] [address] Sep, Dental examination Z01.20 [facility] [address] [place] [address] Sep, Anxiety disorder, unspecifie d F41.[address] [id number] [place] [address] [id number] Sep, Mouth ulcer K12.[address] [id number], [place] [id number] Sep, Morbid obesity E66.[address] [id number] [place] [address] [id number] Sep, Allergic rhinitis, unspecified seasonali ty, unspecified trigger J30.9 and Shortness of breath R06.[address] [id number] [place] [address] [id number] Sep, 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 [id number], [place] [id number] Aug, Mouth abscess K12.2 ; Mouth ulcer K12.1 ; Bloating R14.0 and Morbid obesity E66.[address] [facility] [address] [address] [id number], [place] [id number] Aug, [facility] [address] [id number], [place] [id number] Aug, [facility] [address] [id number], [place] [id number] Jul, Major depressive disorder, recurrent, mo derate F33.1 ; Abscess of arm, left L02.414 ; BMI 45.0-49.9, adult Z68.42 and Morbid obesity E66.01 [facility] Jama [facility] [id number], [place] [id number] Jul, [facility] [address] [id number], [place] [id number] Jul, [facility] [place] [address] [place] [address] AVE [id number], [place] [id number] Jun, Pain in right knee M25.561 and Other chr onic pain G89.29 [facility] [address] [place] [address] AVE [id number], [place] [id number] Jun, Benign essential hypertension I10 ; BMI 45.0-49.9, adult Z68.42 ; Morbid obesity E66.01 ; Vitamin D deficiency E55.9 ; Insomnia G47.00 ; 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 ; Edema R60.9 ; Recurrent major depressive disorder, in partial remission F33.41 ; Chronic fatigue R53.82 ; Acute pain of right knee M25.561 ; Metabolic syndrome E88.81 and Irritable mood R45.4 [facility] [address] [facility] [id number] [address] [place] [address] Jun, [facility] [address] [place] [address] AVE [id number], [place] [id number] Jun, Irritable mood R45.4 [facility] [address] [place] [id number] [address] [place] [address] May, [facility] [address] [place] [id number] [address] [place] [address] May, [facility] [address] [facility] [id number] [address] [place] [address] May, Recurrent major depressive d isorder, in partial remission F33.41 ; Mixed obsessional thoughts and acts F42.2 ; 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 and BMI 45.0-49.9, adult Z68.42 [facility] [address] [place] [id number] [address] [place] [address] Apr, [facility] [address] [facility] [id number] [address] [place] [address] Apr, [facility] [address] [place] [id number] [place] [address] Apr, [facility] [address] [place] [id number] [place] [address] Apr, [facility] [address] [place] [id number] [place] [address] Mar, Mixed obsessional thoughts a nd acts F42.2 ; Recurrent major depressive disorder, in partial remission F33.41 ; DANIELA (generalized anxiety disorder) F41.1 and BMI 45.0-49.9, adult Z68.[address] [place] [address] [id number], [place] [id number] Mar, [place] [id number] [place] [address] [id number] Mar, BMI 45.0-49.9, adult Z68.42 ; Instabilit y of right knee joint M25.361 and Rash R21 [facility] [address] [facility] [id number] [address] [place] [address] Jan, Recurrent major depressive d isorder, in partial remission F33.41 ; Mixed obsessional thoughts and acts F42.2 and BMI 45.0-49.9, adult Z68.42 [facility] [address] [id number], [place] [id number] Jan, [facility] [address] [id number], [place] [id number] Jan, Benign essential hypertension I10 ; BMI 45.0-49.9, adult Z68.42 ; Metabolic syndrome E88.81 and Allergic rhinitis, unspecified seasonality, unspecified trigger J30.9 [facility] [address] [facility] [id number] [address] [place] [phone] Dec, DANIELA (generalized anxiety dis order) F41.1 and Depressive disorder, not elsewhere classified F32.9 [facility] [employer] [id number], [place] [id number] Dec, Recurrent major depressive disorder, in partial remission F33.41 [facility] [address] [id number], [place] [id number] Dec, [facility] [address] [id number], [place] [id number] Nov, [facility] [employer] [id number], [place] [id number] Nov, Recurrent major depressive disorder, in partial remission F33.41 [place] [address] [facility] [id number] [address] [place] [address] Nov, Recurrent major depressive d isorder, in partial remission F33.41 ; Mixed obsessional thoughts and acts F42.2 ; DANIELA (generalized anxiety disorder) F41.1 and BMI 45.0-49.9, adult Z68.42 [facility] [address] [id number], [place] [id number] Nov, [facility] [address] [id number], [place] [id number] Nov, Other conjunctivitis of both eyes H10.89 and Sciatica, right side M54.31 [facility] [address] [id number], [place] [id number] Nov, [facility] [address] [id number], [place] [id number] Nov, [facility] [address] [id number], [place] [id number] October, [facility] [address] [id number], [place] [id number] October, [facility] [address] [facility] [id number] [place] [address] October, BMI 45.0-49.9, adult Z68.42 ; Mixed obsessional thoughts and acts F42.2 ; Recurrent major depressive disorder, in partial remission F33.41 and DANIELA (generalized anxiety disorder) F41.1 [facility] [address] [id number], [place] [id number] October, Benign essential hypertension I10 ; Morb id obesity E66.01 and BMI 45.0-49.9, adult Z68.42 [facility] [address] [id number], [place] [id number] Sep, [facility] [address] [id number], [place] [id number] Sep, [facility] [address] [id number], [place] [id number] Sep, [facility] [address] [id number], [place] [id number] Sep, Hospital discharge follow-up Z09 ; Aller gic rhinitis, unspecified seasonality, unspecified trigger J30.9 and Shortness of breath R06.02 [facility] [address] [id number], [place] [id number] Sep, Recurrent major depressive disorder, in partial remission F33.41 [facility] [address] [id number], [place] [id number] Aug, Irritable mood R45.4 [facility] [address] [facility] [id number] [place] [address] Aug, [facility] [address] [id number], [place] [id number] Jul, Benign essential hypertension I10 ; Robert a R60.9 and Impacted cerumen of left ear H61.22 [place] [address] [facility] [id number] [address] [place] [address] 14 Jul, 2017 Major depression F32.9 ; Rec urrent major depressive disorder, in partial remission F33.41 and Anxiety F41.9 [place] [address] [facility] [id number] [address] [place] [address] Jun, Major depression F32.9 ; Rec urrent major depressive disorder, in partial remission F33.41 and Anxiety F41.[address] [place] [id number] [place] [address] [id number] Jun, Major depression F32.9 ; Morbid obesity E66.01 ; Irritable mood R45.4 ; Hand weakness R29.898 and Vitamin D deficiency E55.[address] [place] [id number] [place] [address] [id number] Jun, [place] [address] [id number] [place] [address] [id number] May, Major depression F32.9 [place] [address] [place] [id number] [address] [place] [address] May, Major depression F32.9 [facility] [address] [id number], [place] [id number] May, BMI 50.0-59.9, adult Z68.43 ; Major depr ession F32.9 ; Anxiety F41.9 ; Hypertrophic toenail L60.2 and Pain of left great toe M79.675 [facility] [id number] [place] [address] [id number] May, Recurrent major depressive disorder, in partial remission F33.41 [place] [address] [facility] [id number] [address] [place] [address] Apr, [facility] [address] [id number], [place] [id number] Apr, [facility] [address] [facility] [id number] [address] [place] [address] Apr, Major depression F32.9 [facility] [address] [id number], [place] [id number] Apr, Severe episode of recurrent major depres sive disorder, without psychotic features F33.2 ; Anxiety F41.9 and Insomnia G47.00 [facility] [address] [id number], [place] [id number] Apr, [facility] [address] [facility] [id number] [address] [place] [address] Apr, [facility] [address] [id number], [place] [id number] Apr, [facility] [address] [id number], [place] [id number] Mar, [facility] [address] [id number], [place] [id number] Mar, Allergic conjunctivitis of both eyes H10 .13 [facility] [address] [facility] [id number] [address] [place] [address] Mar, Major depression F32.9 [facility] [address] [id number], [place] [id number] Mar, Metabolic syndrome E88.81 ; History of g astric bypass Z98.890 ; Benign essential hypertension I10 ; Allergic conjunctivitis of both eyes H10.13 and Morbid obesity E66.01 [facility] [address] [facility] [id number] [address] [place] [address] Mar, Major depression F32.9 [facility] [address] [id number], [place] [id number] Feb, [facility] [address] [facility] [id number] [address] [place] [address] Feb, Major depression F32.9 [place] [address] [facility] A[address] [id number], [place] [id number] Feb, Subacute maxillary sinusitis J01.00 and Bronchitis J40 [place] [address] [place] [address] Feb, Major depressive disorder, r ecurrent, moderate F33.[address] [id number], [place] [id number] Jan, [address] [id number] [place] [address] [id number] Jan, Acute non-recurrent maxillary sinusitis J01.00 and Skin tag L91.[address] [id number], [place] [id number] Jan, Cough R05 and Sinus congestion R09.[address] [id number] [place] [id number] Jan, [address] [id number] [place] [address] [id number] Jan, Benign essential hypertension I10 ; Hist ory of gastric bypass Z98.890 and Nausea and vomiting in adult R11.2 [place] [address] [place] [address] Jan, Major depressive disorder, r ecurrent, moderate F33.1 [place] [address] [place] [address] Dec, Insomnia G47.00 ; Recurrent major depressive disorder, in partial remission F33.41 and Morbid obesity E66.[address] [id number], [place] [id number] Dec, [facility] [address] [id number] [place] [address] [id number] Dec, Chronic bacterial conjunctivitis of left eye H10.402 [facility] [address] [id number] [place] [id number] Nov, [address] [id number], [place] [id number] Nov, Dental examination Z01.[address] [id number] [place] [address] [id number] Nov, Benign essential hypertension I10 ; Hist ory of gastric bypass Z98.890 and Nausea and vomiting in adult R11.2 [place] [id number] [place] [phone] 13 Nov, 2016 Major depressive disorder, r ecurrent, moderate F33.1 ; Generalized anxiety disorder F41.1 and Insomnia due to other mental disorder F51.05 [place] [id number] [place] [address] 12 Nov, 2016 Recurrent major depressive d isorder, in partial remission F33.41 ; Insomnia G47.00 and Morbid obesity E66.01 [facility] [address] [facility] [id number] [facility] [id number] October, Abscess of left arm L02.[address] [id number] [address] [place] [address] October, Morbid obesity E66.01 ; Lida r depression F32.9 and Recurrent major depressive disorder, in partial remission F33.[address] [id number], [place] [id number] Sep, Benign essential hypertension I10 ; Morb id obesity E66.01 ; S/P gastric bypass Z98.84 ; Abscess L02.91 and Chronic bacterial conjunctivitis of left eye H10.[address] [id number], [place] [id number] Sep, Dental examination Z01.20 [place] [address] [address] [facility] [id number] [address] [place] [address] Sep, Morbid obesity E66.01 ; Lida r depression F32.9 and Recurrent major depressive disorder, in partial remission F33.41 [place] [id number] [place] [address] Jul, [place] [address] [address] [facility] [id number] [address] [place] [phone] Jul, Major depressive disorder, r ecurrent, moderate F33.1 [place] [address] [place] [id number] [address] [place] [address] Jul, Major depressive disorder, r ecurrent, moderate F33.1 and Generalized anxiety disorder F41.1 [facility] [address] [id number] [id number] Jul, Cough R05 [place] [address] [address] [place] [id number] [address] [place] [phone] Jul, Morbid obesity E66.01 ; Lida r depression F32.9 and Recurrent major depressive disorder, in partial remission F33.41 [facility] [id number] [place] [id number] Jul, [facility] [id number] [place] [id number] Jul, [facility] [id number] [place] [address] [id number] Jul, Gastroenteritis K52.9 and Cough R05 [facility] [id number] [place] [address] [id number] Jun, Acute bacterial conjunctivitis of left e ye H10.32 [place] [address] [address] [place] [id number] [address] [place] [phone] Jun, [place] [address] [phone] Jun, Recurrent major depressive d isorder, in partial remission F33.41 [place] [address] [address] [place] [id number] [address] [place] [id number] May, Major depression F32.9 and M orbid obesity E66.01 [place] [address] [address] [place] [id number] [address] [place] [id number] May, [facility] [address] [facility] [id number] [place] [id number] May, Thrush B37.0 [place] [address] [address] [facility] [id number] [address] [place] [phone] Apr, Major depressive disorder, r ecurrent, moderate F33.1 [place] [address] [address] [facility] [id number] [address] [place] [id number] Apr, Insomnia G47.00 ; Major depr ession F32.9 and Recurrent major depressive disorder, in partial remission F33.41 [place] [address] [address] [facility] [id number] [address] [place] [id number] Apr, [place] [address] [address] [place] [id number] [address] [place] [phone] Apr, Major depression F32.9 and R ecurrent major depressive disorder, in partial remission F33.41 [place] [id number] [facility] [id number] [place] [address] [id number] Mar, Benign essential hypertension I10 ; Morb id obesity E66.01 ; Impacted cerumen of both ears H61.23 ; Laceration of finger of right hand, initial encounter S61.219A and Encounter for immunization Z23 [place] [address] [address] [facility] [id number] [address] [place] [id number] 17 Mar, 2016 [place] [address] [address] [facility] [id number] [address] [place] [id number] 13 Mar, 2016 [place] [address] [address] [facility] [id number] [address] [place] [address] Mar, [id number] [place] [address] [id number] 29 Feb, 2016 Nausea R11.0 ; Blood in the stool K92.1 and Benign essential hypertension I10 [place] [address] [address] [facility] [id number] [address] [place] [address] Feb, Major depression F32.9 and R ecurrent major depressive disorder, in partial remission F33.41 [facility] [address] [id number] [id number] Feb, [facility] [address] [id number][place] [id number] Feb, Recurrent major depressive disorder, in partial remission F33.41 [facility] [address] [id number][place] [id number] Jan, [facility] [address] [id number], [place] [id number] Jan, Benign essential hypertension I10 ; Robert a R60.9 and Hyperlipidemia, unspecified hyperlipidemia type E78.5 [facility] [address] [id number][place] [id number] Jan, Recurrent major depressive disorder, in partial remission F33.41 [facility] [place] [address] [id number] [place] [id number] Jan, [facility] [address] [id number][place] [id number] Jan, [facility] [address] [id number], [place] [id number] Jan, [facility] [address] [facility] [id number] [address] [place] [address] Jan, [facility] [address] [facility] [id number] [address] [place] [address] Dec, [facility] [address] [facility] [id number] [address] [place] [address] Nov, [facility] [address] [id number] [address] [place] [address] Nov, Major depression F32.9 [facility] [address] [facility] [id number] [address] [place] [address] Nov, [facility] [address] [facility] [id number] [address] [place] [address] Nov, [facility] [address] [facility] [id number] [address] [place] [address] Nov, Major depressive disorder, r ecurrent episode, mild F33.0 and Anxiety F41.9 [facility] [address] [id number], [place] [id number] Nov, [facility] [id number] [place] [address] [id number] October, Left elbow pain M25.522 and Other season al allergic rhinitis J30.2 [facility] [id number] [place] [address] [id number] October, [facility] [address] [facility] [id number] [address] [place] [address] October, Major depressive disorder, r ecurrent, moderate F33.1 [facility] [address] [place] [id number] [address] [place] [address] October, Major depression F32.9 [place] [id number] [address] [place] [address] Sep, [place] or callus L84 and Onych omycosis B35.1 [facility] [address] [place] [id number] [address] [place] [address] Sep, Major depressive disorder, r ecurrent, moderate F33.1 [facility] [address] [facility] [id number] [address] [place] [address] Sep, Major depression F32.9 [facility] [address] [facility] [id number] [address] [place] [address] Sep, Moderate episode of recurren t major depressive disorder F33.1 [facility] [id number] [place] [address] [id number] Sep, Muscle strain T14.8 [facility] [address] [facility] [id number] [address] [place] [address] Aug, Major depression F32.9 [facility] [address] [facility] [id number] [address] [place] [address] Aug, Major depression F32.9 [facility] [address] [facility] [id number] [address] [place] [address] Jul, Morbid obesity E66.01 and Ma cora depression F32.9 [facility] [address] [facility] [id number] [address] [place] [address] Jul, Depression, major, recurrent , moderate F33.[address] [id number][place] [id number] Jul, [facility] [address] [facility] [id number] [address] [place] [address] Jul, [place] [address] [address] [facility] [id number] [address] [place] [address] Jul, Major depression F32.9 and M orbid obesity E66.[id number] [place] [address] [id number] Jul, Type II diabetes mellitus E11.9 ; Callus of foot L84 ; Benign essential hypertension I10 and Renal insufficiency N28.9 [facility] [address] [facility] [id number] [address] [place] [id number] 09 Jul, 2015 Depression, major, recurrent , moderate F33.1 [facility] [address] [facility] [id number] [address] [place] [address] Jul, Major depression F32.9 [facility] [address] [facility] [id number] [address] [place] [address] Jul, [facility] [address] [facility] [id number] [address] [place] [address] Jun, Major depression F32.9 [facility] [address] [facility] [id number] [address] [place] [address] Jun, Major depressive disorder, r ecurrent, moderate F33.1 [place] [id number] [address] [place] [address] Jun, [place] [address] [address] [place] [address] Jun, Major depressive disorder, r ecurrent, moderate F33.1 and Major depression F32.[address] [place] [id number] [place] [address] [id number] Jun, Type II diabetes mellitus E11.9 [place] [address] [address] [place] [address] Jun, Depression, major, recurrent , moderate F33.1 [place] [address] [address] [place] [id number] [address] [place] [address] May, Major depressive disorder, r ecurrent, moderate F33.1 [place] [address] [address] [place] [address] May, [id number] [place] [address] [id number] May, Edema R60.9 [place] [address] [address] [place] [address] 17 May, 2015 Insomnia G47.00 and Major de pression F32.[address] [id number] [place] [address] [id number] 15 May, 2015 Morbid obesity E66.01 ; Edema R60.9 ; Sh ortness of breath R06.02 ; Benign essential hypertension I10 and Renal insufficiency N28.[id number] [place] [address] [id number] 14 May, 2015 Hyperlipemia 272.4 and Renal insufficien cy N28.9 [place] [address] [address] [place] [id number] [address] [place] [address] Apr, Major depression F32.9 [place] [address] [address] [place] [id number] [address] [place] [address] Apr, [place] [address] [address] [facility] [id number] [address] [place] [address] Apr, Major depressive disorder, r ecurrent, moderate F33.1 [facility] [address] [id number][place] [id number] Apr, Type II diabetes mellitus E11.9 ; Benign essential hypertension I10 ; Edema R60.9 and Renal insufficiency N28.9 [place] [address] [address] [facility] [id number] [address] [place] [address] Mar, Major depressive disorder, r ecurrent, moderate F33.1 [place] [address] [address] [place] [id number] [address] [place] [address] Mar, [place] [address] [address] [place] [id number] [address] [place] [address] Mar, Major depression F32.9 [facility] [address] [facility] [address] [id number], [place] [id number] Mar, Morbid obesity E66.01 ; Benign essential hypertension I10 and Type II diabetes mellitus E11.9 [place] [address] [address] [place] [id number] [address] [place] [address] Feb, Major depressive disorder, r ecurrent, moderate F33.1 [place] [address] [address] [place] [id number] [address] [place] [address] Feb, Major depressive disorder, r ecurrent episode, in partial or unspecified remission 296.35 ; Anxiety state, unspecified 300.00 and Morbid obesity 278.01 [place] [address] [address] [facility] [id number] [address] [place] [address] Feb, [facility] [address] [id number][place] [id number] Feb, Vomiting 787.03 and Viral syndrome 079.9 9 [place] [address] [address] [place] [id number] [address] [place] [address] Feb, Major depression, recurrent 296.30 ; Generalized anxiety disorder 300.02 and No condition on [place] II V71.[address] [id number][place] [id number] Feb, Skin tag 701.9 [facility] [address] [facility] [id number] [address] [place] [address] Feb, [facility] [address] [place] [id number] [address] [place] [address] Jan, Depression, major, recurrent , moderate 296.[address] [id number], [place] [id number] Jan, Nausea and vomiting 787.01 ; Rib pain on right side 786.50 and Fall on or from sidewalk curb E880.1 [facility] [address] [facility] [id number] [address] [place] [address] Jan, [facility] [address] [place] [id number] [address] [place] [address] Jan, Major depressive disorder, r ecurrent episode, in partial or unspecified remission 296.35 and Anxiety state, unspecified 300.[address] [id number][place] [id number] Jan, [facility] [address] [facility] [id number] [address] [place] [address] Jan, Depression, major, recurrent , moderate 296.32 [facility] [address] [facility] [id number] [address] [place] [address] Jan, Major depression, recurrent 296.30 ; No condition on [place] II V71.09 and No condition on axis III V71.[address] [id number][place] [id number] Jan, Drug-induced nausea and vomiting 787.01 [place] [address] [address] [facility] [id number] [address] [place] [address] Jan, Depression, major, recurrent , moderate 296.32 [facility] [address] [facility] [id number] [address] [place] [address] Dec, Depression, major, recurrent , moderate 296.32 [facility] [address] [id number][place] [id number] Dec, Morbid obesity 278.01 ; Metabolic syndro me 277.7 ; Hyperlipemia 272.4 ; Benign essential hypertension 401.1 ; Dietary counseling V65.3 ; Exercise counseling V65.41 and Inflamed skin tag 701.9 [place] [address] [address] [facility] [id number] [address] [place] [address] Dec, Depression, major, recurrent , moderate 296.32 [place] [address] [address] Dec, [address] [address] Dec, Major depression, recurrent 296.30 ; Anxiety, generalized 300.02 and No condition on [place] II V71.09 [place] [address] [address] [place] [id number] [address] [place] [address] Dec, Depression, major, recurrent , moderate 296.32 [place] [address] [address] [place] [id number] [address] [place] [address] Dec, Major depressive disorder, r ecurrent episode, moderate 296.32 [place] [address] [address] [place] [id number] [address] [place] [address] Dec, Depression, major, recurrent , moderate 296.32 [place] [address] [address] [facility] [id number] [address] [place] [address] Dec, Depression, major, recurrent , moderate 296.32 [place] [address] [address] [place] [id number] [address] [place] [address] Dec, Depression, major, recurrent , moderate 296.32 [place] [address] [address] [place] [id number] [address] [place] [address] Dec, Depression, major, recurrent , moderate 296.32 [facility] [address] [address] Nov, Depression, major, recurrent , moderate 296.32 [facility] [address] [place] [id number] [place] [address] Nov, Major depression 296.20 ; So cial phobia 300.23 and No condition on [place] II V71.09 [facility] [address] [address] Nov, Depression, major, recurrent , moderate 296.32 [place] [address] [address] Nov, Major depressive disorder, r ecurrent episode, moderate 296.32 and Generalized anxiety disorder 300.02 [place] [address] [address] Nov, Depression, major, recurrent , moderate 296.32 [facility] [address] [address] Nov, Depression, major, recurrent , moderate 296.32 [facility] [address] [address] October, Generalized anxiety disorder 300.02 ; No condition on [place] II V71.09 and Major depressive disorder, recurrent 296.30 [facility] [address] [address] Sep, [facility] [address] [address] Sep, [facility] [address] [address] Aug, [facility] [address] [address] Aug, [facility] [address] [address] 23 Aug, 2014 [facility] [address] [id number] [facility] [place] [address] 23 Aug, 2014 [facility] [address] [id number] [address] [place] [address], [place] [address] 20 Aug, 2014 [facility] [address] [id number] [address] [place] [address], [place] [address] 20 Aug, 2014 [facility] [address] [id number] [address] [place] [address], [place] [address] 20 Aug, 2014 [facility] [address] [id number] [address] [place] [address], [place] [address] Aug, [facility] [address] [id number] [address] [place] [address], [place] [address] 13 Aug, 2014 [facility] [address] [id number] [address] [place] [address], [place] [address] 13 Aug, 2014 [facility] [address] [id number] [address] [place] [address], [place] [address] 13 Aug, 2014 [facility] [address] [id number] [address] [place] [address], [place] [address] 13 Aug, 2014 [facility] [address] [id number] [address] [place] [address], [place] [address] Aug, [facility] [address] [id number] [address] [place] [address], [place] [address] Aug, [facility] [address] [id number] [address] [place] [address], [place] [address] 10 Aug, 2014 [facility] [address] [id number] [address] [place] [address], [place] [address] Aug, [facility] [address] [id number] [address] [place] [address], [place] [address] Aug, [facility] [address] [id number] [address] [place] [address], [place] [address] Aug, [facility] [address] [id number] [address] [place] [address], [place] [address] Jul, [facility] [address] [id number] [address] [place] [address], [place] [address] Jul, [facility] [address] [id number] [address] [place] [address], [place] [address] Jul, 2014 [facility] [address] [id number] [address] [place] [address], [place] [address] Jul, 2014 [facility] [address] [id number] [address] [place] [address], [place] [address] Jul, [facility] [address] [id number] [address] [place] [address], [place] [address] Jul, [facility] [address] [id number] [address] [place] [address], [place] [address] Jun, [facility] [address] [id number] [address] [place] [address], [place] [address] Jun, [facility] [address] [id number] [address] [place] [address], [place] [address] Jun, [facility] [address] [id number] [address] [place] [address], [place] [address] Jun, [facility] [address] [id number] [address] [place] [address], [place] [address] Jun, [facility] [address] [id number] [address] [place] [address], [place] [address] Jun, [facility] [address] [id number] [address] [place] [address], [place] [address] Jun, [facility] [address] [id number] [address] [place] [address], [place] [address] Jun, [facility] [address] [id number] [address] [place] [address], [place] [address] Jun, [facility] [address] [id number] [address] [place] [address], [place] [address] Jun, [facility] [address] [id number] [address] [place] [address], [place] [address] Jun, [facility] [address] [id number] [address] [place] [address], [place] [address] Jun, [facility] [address] [id number] [place] [id number] Jun, [facility] [address] [id number] [address] [place] [address], [place] [address] Jun, [facility] [address] [id number] [address] [place] [address], [place] [address] Jun, [facility] [address] [id number] [address] [place] [address], [place] [address] Jun, [facility] [address] [id number] [address] [place] [address], [place] [address] May, [facility] [address] [id number] [address] [place] [address], [place] [address] May, [facility] [address] [id number] [address] [place] [address], [place] [address] May, [facility] [address] [id number] [address] [place] [address], [place] [address] May, [facility] [address] [id number] [address] [place] [address], [place] [address] Apr, [facility] [address] [id number] [address] [place] [address] Apr, [facility] [address] [id number] [address] [place] [address], [place] [address] Apr, [facility] [address] [id number] [address] [place] [address], [place] [address] Apr, [facility] [address] [id number] [address] [place] [address], [place] [address] Apr, [facility] [address] [id number] [address] [place] [address], [place] [address] Apr, [facility] [address] [id number] [address] [place] [address], [place] [address] Apr, [facility] [address] [id number] [address] [place] [address], [place] [address] Apr, [facility] [address] [id number] [address] [place] [address], [place] [address] Apr, [facility] [address] [id number] [address] [place] [address], [place] [address] Apr, [facility] [address] [id number] [address] [place] [address], [place] [address] Apr, [facility] [address] [id number] [address] [place] [address], [place] [address] Apr, [facility] [address] [id number] [address] [place] [address], [place] [address] Apr, [facility] [address] [id number] [address] [place] [address], [place] [address] Apr, [facility] [address] [id number] [address] [place] [address], [place] [address] Apr, [facility] [address] [id number] [address] [place] [address], [place] [address] Apr, [facility] [address] [id number] [address] [place] [address], [place] [address] Apr, [facility] [address] [id number] [address] [place] [address], [place] [address] Apr, [facility] [address] [id number] [address] [place] [address], [place] [address] Apr, [facility] [address] [id number] [address] [place] [address], [place] [address] Apr, [facility] [address] [id number] [address] [place] [address], [place] [address] Mar, [facility] [address] [id number] [address] [place] [address], [place] [address] Mar, [facility] [address] [id number] [address] [place] [address], [place] [address] Mar, [facility] [address] [id number] [address] [place] [address], [place] [address] Mar, [facility] [address] [id number] [address] [place] [address], [place] [address] Mar, [facility] [address] [id number] [address] [place] [address], [place] [address] Mar, [facility] [address] [id number] [address] [place] [address], [place] [address] Mar, [facility] [address] [id number] [address] [place] [address], [place] [address] Mar, [facility] [address] [id number] [address] [place] [address], [place] [address] Mar, [facility] [address] [id number] [address] [place] [address], [place] [address] Mar, [facility] [address] [id number] [address] [place] [address], [place] [address] Feb, [facility] [address] [id number] [address] [place] [address], [place] [address] Feb, [facility] [address] [id number] [address] [place] [address], [place] [address] Feb, [facility] [address] [id number] [address] [place] [address], [place] [address] Feb, [facility] [address] [id number] [address] [place] [address], [place] [address] Jan, [facility] [address] [id number] [address] [place] [address], [place] [address] Jan, [facility] [address] [id number] [address] [place] [address], [place] [address] Jan, [facility] [address] [id number] [address] [place] [address] Jan, [facility] [address] [id number] [address] [place], [place] [address], [place] [address] Jan, [facility] [address] [id number] [address] [place] [address], [place] [address] Jan, [facility] [address] [id number] [address] [place] [address], [place] [address] Dec, [facility] [address] [id number] [address] [place] [address], [place] [address] Dec, [facility] [address] [id number] [address] [place] [address], [place] [address] Nov, [facility] [address] [id number] [address] [place] [address], [place] [address] Nov, [facility] [address] [id number] [address] [place] [address], [place] [address] Nov, [facility] [address] [id number] [address] [place] [address], [place] [address] Nov, [facility] [address] [id number] [address] [place] [address], [place] [address] Nov, [facility] [address] [id number] [address] [place] [address], [place] [address] Nov, [facility] [address] [id number] [address] [place] [address], [place] [address] Sep, [facility] [address] [id number] [address] [place] [address], [place] [address] Sep, [facility] [address] [id number] [address] [place] [address], [place] [address] Sep, [facility] [address] [id number] [address] [place] [address], [place] [address] Sep, [facility] [address] [id number] [address] [place] [address], [place] [address] Aug, [facility] [address] [id number] [address] [place] [address], [place] [address] Aug, [facility] [address] [id number] [address] [place] [address], [place] [address] Jul, [facility] [address] [id number] [address] [place] [address], [place] [address] Jul, [facility] [address] [id number] [address] [place] [address], [place] [address] Jun, [facility] [address] [id number] [address] [place] [address], [place] [address] Jun, [facility] [address] [id number] [address] [place] [address], [place] [address] Jun, [facility] [address] [id number] [address] [place] [address], [place] [address] Jun, [facility] [address] [id number] [address] [place] [address], [place] [address] May, [facility] [address] [id number] [address] [place] [address], [place] [address] May, [facility] [address] [id number] [address] [place] [address], [place] [address] May, [facility] [address] [id number] [address] [place] [address], [place] [address] May, [facility] [address] [id number] [address] [place] [address], [place] [address] May, [facility] [address] [id number] [address] [place] [address], [place] [address] May, [facility] [address] [id number] [address] [place] [address], [place] [address] Apr, [facility] [address] [id number] [address] [place] [address], [place] [address] Apr, [facility] [address] [id number] [address] [place] [address], [place] [address] Apr, [facility] [address] [id number] [address] [place] [address], [place] [address] Apr, [facility] [address] [id number] [address] [place] [address], [place] [address] Mar, [facility] [address] [id number] [address] [place] [address], [place] [address] Mar, [facility] [address] [id number] [address] [place] [address], [place] [address] Mar, [facility] [address] [id number] [address] [place] [address], [place] [address] Mar, [facility] [address] [id number] [address] [place] [address], [place] [address] Feb, [facility] [address] [id number] [place] [id number] Jan, [facility] [address] [id number] [address] [place] [address], [place] [address] Jan, [facility] [address] [id number] [address] [place] [address], [place] [address] Dec, [facility] [address] [id number] [address] [place] [address], [place] [address] Dec, [facility] [address] [id number] [address] [place] [address], [place] [address] Dec, [facility] [address] [id number] [place] [id number] Dec, [facility] [address] [id number] [address] [place] [address], [place] [address] Nov, [facility] [address] [id number] [address] [place] [address], [place] [address] 14 Nov, 2012 [facility] [address] [id number] [address] [place] [address] [address] Nov, [facility] [address] [facility] [id number] [address] [place] [address] Nov, [facility] [address] [facility] [id number] [address] [place] [address] Nov, [facility] [address] [facility] [id number] [address] [place] [address] October, [facility] [address] [facility] [id number] [address] [place] [address] October, [facility] [address] [facility] [id number] [address] [place] [address] Aug, [facility] [address] [facility] [id number] [address] [place] [address] Nov, IMMUNIZATIONS No Known Immunizations SOCIAL HISTORY Never Assessed REASON FOR VISIT PLAN OF CARE VITAL SIGNS Height 72 in 2014-07-12 Weight 443 lbs 2014-07-12 Temperature 97.5 degrees Fahrenheit 2014-07-12 Heart Rate 80 bpm 2014-07-12 Respiratory Rate 18 2014-07-12 MEDICATIONS Unknown Medications RESULTS No Results PROCEDURES [...] 03/2016 Hospitalization History gastric sleeve Hospitalization History [facility] Trouble with left shoulder blade 08/2017
[2019-11-29] MEDS: TETRACAINE 0.5% OPHTH SOLN 4 ML BTL (SINGLE DOSE ONLY) OP PRN ×4 (09:13→09:34)
--- OUTSIDE RECORDS SUMMARY | 2019-11-29 09:13 | XMS REPORT ---
Author Author Curt VALE Organization [facility] Address [address] [place] [address] Care Team Providers Care Vice President Talent Management Name Role Phone KAVIN IKE Unavailable PROBLEMS Type Condition ICD9-CM Code LLB02-QA Code Onset Dates Condition S tatus SNOMED Code Problem Hyperlipemia E78.5 Active 0181542 4 Problem Insomnia G47.00 Active 012705601 Problem Morbid obesity E66.01 Active 93128 6002 Problem Benign essential hypertension I10 Active 7802558 Problem Renal insufficiency N28.9 Active 692103051 Problem Edema R60.9 Active 544308089 Problem Vitamin D deficiency E55.9 Active 23240493 Problem Mixed obsessional thoughts and acts F42.2 Active 61643764 Problem BMI 45.0-49.9, adult Z68.42 Active 529679390 Problem Other chronic pain G89.29 Active 8 5550132 Problem Severe episode of recurrent major depressive disorder, without psychotic features F33.2 Active 68684656 Problem Callous ulcer, limited to breakdown of skin L98.49 1 Active Problem Metabolic syndrome E88.81 Active 2 67348100 Problem DANIELA (generalized anxiety disorder) F41.1 Active 88577194 Problem Sciatica, right side M54.31 Active 858792100438163 Problem 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 [address] [facility] [id number] [address] [place] [address] Jan, [facility] [address] [facility] [address] [id number], [place] [id number] Jan, [facility] [id number] [place] [address] [id number] Dec, Callous ulcer, limited to breakdown of s kin L98.491 and Morbid obesity E66.01 [facility] [address] [facility] [id number] [address] [place] [phone] Dec, [facility] [address] [facility] [id number] [address] [place] [phone] Dec, [facility] [address] [facility] [id number] [address] [place] [phone] Dec, [facility] [address] [facility] [id number] [address] [place] [phone] Dec, [facility] [address] [facility] [id number] [address] [place] [phone] Dec, Severe episode of recurrent major depressive disorder, without psychotic features F33.2 [facility] [address] [facility] [id number] [address] [place] [phone] Dec, DANIELA (generalized anxiety dis order) F41.1 ; Severe episode of recurrent major depressive disorder, without psychotic features F33.2 ; Mixed obsessional thoughts and acts F42.2 and Dependent personality disorder F60.[address] [place] [place] [address] [id number], [place] [id number] Dec, Morbid obesity E66.01 [facility] [address] [facility] [id number] [address] [place] [phone] Dec, [facility] [address] [facility] [id number] [address] [place] [phone] Dec, [address] [address] Nov, [id number] [place] [address] [id number] Nov, [facility] [address] [facility] [id number] [address] [place] [phone] Nov, [facility] [address] [facility] [id number] [address] [place] [phone] Nov, 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 [address] [facility] [id number] [address] [place] [phone] Nov, 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 [address] [facility] [id number] [address] [place] [address] October, Severe episode of recurrent major depressive disorder, without psychotic features F33.[address] [facility] [address] [id number], [place] [id number] October, Morbid obesity E66.01 [facility] [address] [id number], [place] [id number] October, [facility] [address] [facility] [id number] [address] [place] [phone] October, Severe episode of recurrent major depressive disorder, without psychotic features F33.2 ; DANIELA (generalized anxiety disorder) F41.1 ; Mixed obsessional thoughts and acts F42.2 and Dependent personality disorder F60.[address] [id number], [place] [id number] October, Morbid obesity E66.01 [facility] [address] [place] [id number] [address] [place] [address] [id number] Sep, Dental examination Z01.[address] [id number], [place] [id number] Sep, [facility] [address] [place] [id number] [address] [place] [address] Sep, Sore in mouth K13.79 and Mor bid obesity E66.01 [facility] [address] [place] [id number] [address] [place] [phone] Sep, Dental examination Z01.20 [facility] [address] [place] [address] Sep, Anxiety disorder, unspecifie d F41.[address] [id number] [place] [address] [id number] Sep, Mouth ulcer K12.[address] [id number], [place] [id number] Sep, Morbid obesity E66.[address] [id number] [place] [address] [id number] Sep, Allergic rhinitis, unspecified seasonali ty, unspecified trigger J30.9 and Shortness of breath R06.[address] [id number] [place] [address] [id number] Sep, 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 [id number], [place] [id number] Aug, Mouth abscess K12.2 ; Mouth ulcer K12.1 ; Bloating R14.0 and Morbid obesity E66.[address] [id number], [place] [id number] Aug, [facility] [address] [id number], [place] [id number] Aug, [facility] [address] [id number], [place] [id number] Jul, Major depressive disorder, recurrent, mo derate F33.1 ; Abscess of arm, left L02.414 ; BMI 45.0-49.9, adult Z68.42 and Morbid obesity E66.01 [facility] [address] [facility] [address] [id number], [place] [id number] Jul, [facility] [place] [address] [place] [address] AVE [id number], [place] [id number] Jul, [facility] [address] [place] [place] [address] AVE [id number], [place] [id number] Jun, Pain in right knee M25.561 and Other chr onic pain G89.29 [facility] [place] [place] [place] [address] AVE [id number], [place] [id number] Jun, Benign essential hypertension I10 ; BMI 45.0-49.9, adult Z68.42 ; Morbid obesity E66.01 ; Vitamin D deficiency E55.9 ; Insomnia G47.00 ; 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 [address] [facility] [id number] [address] [place] [phone] Jun, [facility] [address] [place] [address] AVE [id number], [place] [id number] Jun, Irritable mood R45.4 [facility] [address] [place] [id number] [address] [place] [phone] May, [facility] [address] [place] [id number] [address] [place] [phone] May, 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 [address] [facility] [id number] [address] [place] [phone] Apr, [facility] [address] [facility] [id number] [address] [place] [phone] Apr, [facility] [address] [facility] [id number] [address] [place] [phone] Apr, [facility] [address] [place] [id number] [address] [place] [phone] Apr, [facility] [address] [place] [id number] [address] [place] [phone] Mar, Mixed obsessional thoughts a nd acts F42.2 ; Recurrent major depressive disorder, in partial remission F33.41 ; DANIELA (generalized anxiety disorder) F41.1 and BMI 45.0-49.9, adult Z68.[address] [place] [id number], [place] [id number] Mar, [place] [id number] [place] [address] [phone] Mar, BMI 45.0-49.9, adult Z68.42 ; Instabilit y of right knee joint M25.361 and Rash R21 [facility] [address] [facility] [id number] [address] [place] [id number] Jan, Recurrent major depressive d isorder, in partial remission F33.41 ; Mixed obsessional thoughts and acts F42.2 and BMI 45.0-49.9, adult Z68.[address] [facility] [id number] [place] [address] [id number] Jan, [facility] [address] [id number], [place] [id number] Jan, Benign essential hypertension I10 ; BMI 45.0-49.9, adult Z68.42 ; Metabolic syndrome E88.81 and Allergic rhinitis, unspecified seasonality, unspecified trigger J30.9 [facility] [address] [facility] [id number] [address] [place] [phone] Dec, DANIELA (generalized anxiety dis order) F41.1 and Depressive disorder, not elsewhere classified F32.9 [facility] [address] [id number], [place] [id number] Dec, Recurrent major depressive disorder, in partial remission F33.41 [facility] [address] [id number], [place] [id number] Dec, [facility] [address] [id number], [place] [id number] Nov, [facility] [address] [id number], [place] [id number] Nov, Recurrent major depressive disorder, in partial remission F33.41 [place] [address] [facility] [id number] [address] [place] [phone] Nov, Recurrent major depressive d isorder, in partial remission F33.41 ; Mixed obsessional thoughts and acts F42.2 ; DANIELA (generalized anxiety disorder) F41.1 and BMI 45.0-49.9, adult Z68.42 [facility] [address] [id number], [place] [id number] Nov, [facility] [address] [id number] [place] [id number] Nov, Other conjunctivitis of both eyes H10.89 and Sciatica, right side M54.31 [facility]Active[facility] [address] [id number], [place] [id number] Nov, [facility]ALSE[facility]izen.VC[facility] [address] [id number], [place] [id number] Nov, [facility] [address] [id number], [place] [id number] October, [facility] [address] [id number], [place] [id number] October, [facility] [address] [facility] [id number] [place] [address] October, BMI 45.0-49.9, adult Z68.42 ; Mixed obsessional thoughts and acts F42.2 ; Recurrent major depressive disorder, in partial remission F33.41 and DANIELA (generalized anxiety disorder) F41.1 [facility] [address] [id number], [place] [id number] October, Benign essential hypertension I10 ; Morb id obesity E66.01 and BMI 45.0-49.9, adult Z68.42 [facility] [address] [id number], [place] [id number] Sep, [facility] [address] [id number], [place] [id number] Sep, [facility] [address] [id number], [place] [id number] Sep, [facility] [address] [id number], [place] [id number] Sep, Hospital discharge follow-up Z09 ; Aller gic rhinitis, unspecified seasonality, unspecified trigger J30.9 and Shortness of breath R06.02 [facility] [address] [id number], [place] [id number] Sep, Recurrent major depressive disorder, in partial remission F33.41 [facility] [address] [id number], [place] [id number] Aug, Irritable mood R45.4 [facility] [address] [facility] [id number] [place] [address] Aug, [facility] [address] [id number], [place] [id number] Jul, Benign essential hypertension I10 ; Orbert a R60.9 and Impacted cerumen of left ear H61.22 [facility] [address] [facility] [id number] [address] [place] [phone] 14 Jul, 2017 Major depression F32.9 ; Rec urrent major depressive disorder, in partial remission F33.41 and Anxiety F41.9 [place] [address] [facility] [id number] [address] [place] [phone] Jun, Major depression F32.9 ; Rec urrent major depressive disorder, in partial remission F33.41 and Anxiety F41.[address] [facility] [address] [id number], [place] [id number] Jun, Major depression F32.9 ; Morbid obesity E66.01 ; Irritable mood R45.4 ; Hand weakness R29.898 and Vitamin D deficiency E55.[address] [place] [address] [id number], [place] [id number] Jun, [facility] [address] [id number], [place] [id number] May, Major depression F32.9 [place] [address] [facility] [id number] [address] [place] [phone] May, Major depression F32.[address] [facility] [address] [id number], [place] [id number] May, BMI 50.0-59.9, adult Z68.43 ; Major depr ession F32.9 ; Anxiety F41.9 ; Hypertrophic toenail L60.2 and Pain of left great toe M79.[address] [facility] [address] [id number], [place] [id number] May, Recurrent major depressive disorder, in partial remission F33.41 [place] [address] [facility] [id number] [address] [place] [address] Apr, [facility] [address] [id number], [place] [id number] Apr, [facility] [address] [facility] [id number] [address] [place] [address] Apr, Major depression F32.9 [facility] [address] [id number], [place] [id number] Apr, Severe episode of recurrent major depres sive disorder, without psychotic features F33.2 ; Anxiety F41.9 and Insomnia G47.00 [facility] [address] [id number], [place] [id number] Apr, [facility] [address] [facility] [id number] [address] [place] [address] Apr, [facility] [address] [id number], [place] [id number] Apr, [facility] [address] [id number], [place] [id number] Mar, [facility] [address] [id number], [place] [id number] Mar, Allergic conjunctivitis of both eyes H10 .13 [facility] [address] [facility] [id number] [address] [place] [phone] Mar, Major depression F32.9 [facility] [address] [id number], [place] [id number] Mar, Metabolic syndrome E88.81 ; History of g astric bypass Z98.890 ; Benign essential hypertension I10 ; Allergic conjunctivitis of both eyes H10.13 and Morbid obesity E66.01 [facility] [address] [facility] [id number] [address] [place] [address] Mar, Major depression F32.9 [facility] [address] [id number], [place] [id number] Feb, [facility] [address] [facility] [id number] [address] [place] [address] Feb, Major depression F32.9 [place] [address] [facility] [address] [id number], [place] [id number] Feb, Subacute maxillary sinusitis J01.00 and Bronchitis J40 [place] [address] [place] [id number] [address] [place] [address] Feb, Major depressive disorder, r ecurrent, moderate F33.[address] [id number], [place] [id number] Jan, [id number] [place] [address] [id number] Jan, Acute non-recurrent maxillary sinusitis J01.00 and Skin tag L91.[address] [id number], [place] [id number] Jan, Cough R05 and Sinus congestion R09.[address] [id number], [place] [id number] Jan, [address] [id number] [place] [address] [id number] Jan, Benign essential hypertension I10 ; Hist ory of gastric bypass Z98.890 and Nausea and vomiting in adult R11.2 [place] [address] [place] [address] Jan, Major depressive disorder, r ecurrent, moderate F33.1 [place] [address] [place] [id number] [address] [place] [id number] Dec, Insomnia G47.00 ; Recurrent major depressive disorder, in partial remission F33.41 and Morbid obesity E66.01 [facility] [address] [facility] [address] [id number], [place] [id number] Dec, [facility] [address] [id number], [place] [id number] Dec, Chronic bacterial conjunctivitis of left eye H10.402 [facility] [address] [id number] [place] [address] [id number] Nov, [address] [id number], [place] [id number] Nov, Dental examination Z01.[address] [id number], [place] [id number] Nov, Benign essential hypertension I10 ; Hist ory of gastric bypass Z98.890 and Nausea and vomiting in adult R11.2 [place] [id number] [place] [phone] 13 Nov, 2016 Major depressive disorder, r ecurrent, moderate F33.1 ; Generalized anxiety disorder F41.1 and Insomnia due to other mental disorder F51.05 [place] [id number] [place] [phone] 12 Nov, 2016 Recurrent major depressive d isorder, in partial remission F33.41 ; Insomnia G47.00 and Morbid obesity E66.01 [facility] [address] [facility] [id number] [place] [address] [id number] October, Abscess of left arm L02.414 [place] [id number] [place] [address] October, Morbid obesity E66.01 ; Lida r depression F32.9 and Recurrent major depressive disorder, in partial remission F33.41 [address] [id number], [place] 808393678 Sep, Benign essential hypertension I10 ; Morb id obesity E66.01 ; S/P gastric bypass Z98.84 ; Abscess L02.91 and Chronic bacterial conjunctivitis of left eye H10.[id number] [place] [address] [id number] Sep, Dental examination Z01.20 [place] [address] [place] [id number] [address] [place] [phone] Sep, Morbid obesity E66.01 ; Lida r depression F32.9 and Recurrent major depressive disorder, in partial remission F33.41 [place] [address] [place] [id number] [address] [place] [phone] Jul, [place] [address] [facility] [id number] [address] [place] [phone] Jul, Major depressive disorder, r ecurrent, moderate F33.1 [place] [address] [place] [id number] [address] [place] [address] Jul, Major depressive disorder, r ecurrent, moderate F33.1 and Generalized anxiety disorder F41.[address] [facility] [address] [id number], [place] [id number] Jul, Cough R05 [place] [address] [address] Jul, Morbid obesity E66.01 ; Lida r depression F32.9 and Recurrent major depressive disorder, in partial remission F33.[address] [facility] [id number] [place] [address] [id number] Jul, [facility] [id number] [place] [address] [id number] Jul, [facility] [address] [address] [id number] [place] [address] [id number] Jul, Gastroenteritis K52.9 and Cough R05 [place] [address] [id number] [place] [address] [id number] Jun, Acute bacterial conjunctivitis of left e ye H10.32 [place] [address] [facility] [id number] [address] [place] [phone] Jun, [place] [address] [address] Jun, Recurrent major depressive d isorder, in partial remission F33.41 [place] [address] [place] [id number] [address] [place] [phone] May, Major depression F32.9 and M orbid obesity E66.01 [place] [address] [facility] [id number] [address] [place] [address] May, [id number] [place] [address] [id number] May, Thrush B37.0 [place] [address] [facility] [id number] [address] [place] [phone] Apr, Major depressive disorder, r ecurrent, moderate F33.1 [place] [address] [facility] [id number] [address] [place] [phone] Apr, Insomnia G47.00 ; Major depr ession F32.9 and Recurrent major depressive disorder, in partial remission F33.41 [place] [address] [address] [facility] [id number] [address] [place] [id number] Apr, [place] [address] [address] [facility] [id number] [address] [place] [id number] Apr, Major depression F32.9 and R ecurrent major depressive disorder, in partial remission F33.[id number] [place] [id number] Mar, Benign essential hypertension I10 ; Morb id obesity E66.01 ; Impacted cerumen of both ears H61.23 ; Laceration of finger of right hand, initial encounter S61.219A and Encounter for immunization Z23 [place] [address] [address] [facility] [id number] [address] [place] [phone] 17 Mar, 2016 [place] [address] [address] [facility] [id number] [address] [place] [phone] Mar, [place] [address] [address] [facility] [id number] [address] [place] [phone] Mar, [id number] [place] [id number] Feb, Nausea R11.0 ; Blood in the stool K92.1 and Benign essential hypertension I10 [place] [facility] [id number] [address] [place] [phone] Feb, Major depression F32.9 and R ecurrent major depressive disorder, in partial remission F33.41 [facility] [address] [id number] [id number] Feb, [facility] [address] [id number] [id number] Feb, Recurrent major depressive disorder, in partial remission F33.41 [facility] [address] [id number] [id number] Jan, [facility] [address] [id number] [id number] Jan, Benign essential hypertension I10 ; Robert a R60.9 and Hyperlipidemia, unspecified hyperlipidemia type E78.5 [facility] [address] [id number][place] [id number] Jan, Recurrent major depressive disorder, in partial remission F33.41 [facility] [address] [id number] [place] [id number] Jan, [facility] [address] [id number][place] [id number] Jan, [facility] [address] [id number][place] [id number] Jan, [facility] [address] [facility] [id number] [address] [place] [address] Jan, [facility] [address] [facility] [id number] [address] [place] [address] Dec, [facility] [address] [facility] [id number] [address] [place] [id number] Nov, [facility] [address] [facility] [id number] [address] [place] [phone] Nov, Major depression F32.9 [facility] [address] [facility] [id number] [address] [place] [address] Nov, [facility] [address] [facility] [id number] [address] [place] [address] Nov, [place] [address] [facility] [id number] [address] [place] [address] Nov, Major depressive disorder, r ecurrent episode, mild F33.0 and Anxiety F41.[address] [facility] [address] [id number][place] [id number] Nov, [facility] [id number] [place] [address] [phone] October, Left elbow pain M25.522 and Other season al allergic rhinitis J30.[address] [facility] [id number] [place] [address] [id number] October, [place] [address] [facility] [id number] [address] [place] [address] October, Major depressive disorder, r ecurrent, moderate F33.1 [place] [address] [facility] [id number] [address] [place] [address] October, Major depression F32.9 [place] [address] [facility] [id number] [address] [place] [address] Sep, [place] or callus L84 and Onych omycosis B35.1 [place] [address] [facility] [id number] [address] [place] [address] Sep, Major depressive disorder, r ecurrent, moderate F33.1 [place] [address] [facility] [id number] [address] [place] [address] Sep, Major depression F32.9 [place] [address] [facility] [id number] [address] [place] [phone] Sep, Moderate episode of recurren t major depressive disorder F33.[address] [facility] [address] [id number], [place] [id number] Sep, Muscle strain T14.8 [place] [address] [facility] [id number] [address] [place] [address] Aug, Major depression F32.9 [facility] [address] [facility] [id number] [address] [place] [address] Aug, Major depression F32.9 [facility] [address] [facility] [id number] [address] [place] [address] Jul, Morbid obesity E66.01 and Ma cora depression F32.9 [facility] [address] [facility] [id number] [address] [place] [address] Jul, Depression, major, recurrent , moderate F33.[id number] [place] [address] [id number] Jul, [facility] [address] [facility] [id number] [address] [place] [address] Jul, [facility] [address] [place] [id number] [address] [place] [address] Jul, Major depression F32.9 and M orbid obesity E66.[address] [id number] [place] [address] [id number] Jul, Type II diabetes mellitus E11.9 ; Callus of foot L84 ; Benign essential hypertension I10 and Renal insufficiency N28.9 [facility] [address] [facility] [id number] [address] [place] [phone] 09 Jul, 2015 Depression, major, recurrent , moderate F33.1 [facility] [address] [facility] [id number] [address] [place] [id number] 05 Jul, 2015 Major depression F32.9 [facility] [address] [facility] [id number] [address] [place] [address] Jul, [facility] [address] [facility] [id number] [address] [place] [phone] Jun, Major depression F32.9 [facility] [address] [facility] [id number] [address] [place] [phone] Jun, Major depressive disorder, r ecurrent, moderate F33.1 [place] [address] [facility] [id number] [address] [place] [address] Jun, [place] [address] [place] [id number] [address] [place], [place] [id number] Jun, Major depressive disorder, r ecurrent, moderate F33.1 and Major depression F32.[address] [place] [id number] [place] [address] [id number] Jun, Type II diabetes mellitus E11.9 [place] [address] [facility] [id number] [address] [place] [address] Jun, Depression, major, recurrent , moderate F33.1 [place] [address] [place] [id number] [address] [place] [address] May, Major depressive disorder, r ecurrent, moderate F33.1 [place] [id number] [place] [address] May, [address] [id number] [place] [address] [id number] May, Edema R60.9 [place] [address] [place] [id number] [address] [place] [address] 17 May, 2015 Insomnia G47.00 and Major de pression F32.[address] [id number] [place] [address] [id number] May, 2015 Morbid obesity E66.01 ; Edema R60.9 ; Sh ortness of breath R06.02 ; Benign essential hypertension I10 and Renal insufficiency N28.[address] [id number] [place] [address] [id number] 14 May, 2015 Hyperlipemia 272.4 and Renal insufficien cy N28.9 [place] [address] [place] [id number] [address] [place] [phone] Apr, Major depression F32.9 [place] [address] [facility] [id number] [address] [place] [address] Apr, [place] [address] [facility] [id number] [address] [place] [address] Apr, Major depressive disorder, r ecurrent, moderate F33.[address] [place] [address] [id number], [place] [id number] Apr, Type II diabetes mellitus E11.9 ; Benign essential hypertension I10 ; Edema R60.9 and Renal insufficiency N28.9 [place] [address] [facility] [id number] [address] [place] [address] Mar, Major depressive disorder, r ecurrent, moderate F33.1 [place] [address] [place] [id number] [address] [place] [address] Mar, [place] [address] [place] [id number] [address] [place] [address] Mar, Major depression F32.[address] [id number], [place] [id number] Mar, Morbid obesity E66.01 ; Benign essential hypertension I10 and Type II diabetes mellitus E11.9 [place] [address] [place] [id number] [address] [place] [address] Feb, Major depressive disorder, r ecurrent, moderate F33.1 [place] [address] [place] [id number] [address] [place] [address] Feb, Major depressive disorder, r ecurrent episode, in partial or unspecified remission 296.35 ; Anxiety state, unspecified 300.00 and Morbid obesity 278.01 [place] [address] [facility] [id number] [address] [place] [address] Feb, [facility] [address] [id number][place] [id number] Feb, Vomiting 787.03 and Viral syndrome 079.9 9 [place] [address] [place] [id number] [address] [place] [address] Feb, Major depression, recurrent 296.30 ; Generalized anxiety disorder 300.02 and No condition on Pope[place] II V71.[address] [id number][place] [id number] Feb, Skin tag 701.9 [facility] [address] [facility] [id number] [address] [place] [address] Feb, [facility] [address] [place] [id number] [address] [place] [address] Jan, Depression, major, recurrent , moderate 296.[address] [id number], [place] [id number] Jan, Nausea and vomiting 787.01 ; Rib pain on right side 786.50 and Fall on or from sidewalk curb E880.1 [facility] [address] [facility] [id number] [address] [place] [address] Jan, [facility] [address] [place] [id number] [address] [place] [address] Jan, Major depressive disorder, r ecurrent episode, in partial or unspecified remission 296.35 and Anxiety state, unspecified 300.[address] [id number], [place] [id number] Jan, [facility] [address] [facility] [id number] [address] [place] [address] Jan, Depression, major, recurrent , moderate 296.32 [facility] [address] [facility] [id number] [address] [place] [phone] Jan, Major depression, recurrent 296.30 ; No condition on Popejoy II V71.09 and No condition on axis III V71.[address] [id number], [place] [id number] Jan, Drug-induced nausea and vomiting 787.01 [facility] [address] [facility] [id number] [address] [place] [address] Jan, Depression, major, recurrent , moderate 296.32 [facility] [id number] [place] [address] Dec, Depression, major, recurrent , moderate 296.32 [facility] [id number] [place] [address] [id number] Dec, Morbid obesity 278.01 ; Metabolic syndro me 277.7 ; Hyperlipemia 272.4 ; Benign essential hypertension 401.1 ; Dietary counseling V65.3 ; Exercise counseling V65.41 and Inflamed skin tag 701.9 [place] [address] [address] Dec, Depression, major, recurrent , moderate 296.32 [place] [address] [address] Dec, [address] [address] Dec, Major depression, recurrent 296.30 ; Anxiety, generalized 300.02 and No condition on Popejoy II V71.09 [place] [address] [address] Dec, Depression, major, recurrent , moderate 296.32 [place] [address] [place] [id number] [address] [place] [address] Dec, Major depressive disorder, r ecurrent episode, moderate 296.32 [place] [address] [place] [id number] [address] [place] [address] Dec, Depression, major, recurrent , moderate 296.32 [place] [address] [place] [id number] [address] [place] [address] Dec, Depression, major, recurrent , moderate 296.32 [place] [address] [place] [id number] [address] [place] [address] Dec, Depression, major, recurrent , moderate 296.32 [place] [address] [address] Dec, Depression, major, recurrent , moderate 296.32 [facility] [address] [place] [id number] [place] [address] Nov, Depression, major, recurrent , moderate 296.32 [facility] [address] [place] [id number] [address] [place] [address] Nov, Major depression 296.20 ; So cial phobia 300.23 and No condition on Popejoy II V71.09 [facility] [address] [place] [id number] [place] [address] Nov, Depression, major, recurrent , moderate 296.32 [facility] [address] [address] Nov, Major depressive disorder, r ecurrent episode, moderate 296.32 and Generalized anxiety disorder 300.02 [facility] [address] [address] Nov, Depression, major, recurrent , moderate 296.32 [facility] [address] [address] Nov, Depression, major, recurrent , moderate 296.32 [facility] [address] [address] October, Generalized anxiety disorder 300.02 ; No condition on Popejoy II V71.09 and Major depressive disorder, recurrent 296.30 [facility] [address] [place] [id number] [address] [place] [address] Sep, [facility] [address] [address] Sep, [facility] [address] [address] Aug, [facility] [address] [place] [id number] [address] [place] [address] Aug, [facility] [address] [address] 23 Aug, 2014 [facility] [address] [id number] [facility] [place] [address] 23 Aug, 2014 [facility] [address] [id number] [address] [place] [address], [place] [address] 20 Aug, 2014 [facility] [address] [id number] [address] [place] [address], [place] [address] 20 Aug, 2014 [facility] [address] [id number] [address] [place] [address], [place] [address] 20 Aug, 2014 [facility] [address] [id number] [address] [place] [address], [place] [address] 20 Aug, 2014 [facility] [address] [id number] [address] [place] [address], [place] [address] 13 Aug, 2014 [facility] [address] [id number] [address] [place] [address], [place] [address] 13 Aug, 2014 [facility] [address] [id number] [address] [place] [address], [place] [address] 13 Aug, 2014 [facility] [address] [id number] [address] [place] [address], [place] [address] Aug, [facility] [address] [id number] [address] [place] [address], [place] [address] Aug, [facility] [address] [id number] [address] [place] [address], [place] [address] Aug, [facility] [address] [id number] [address] [place] [address], [place] [address] 10 Aug, 2014 [facility] [address] [id number] [address] [place] [address], [place] [address] 10 Aug, 2014 [facility] [address] [id number] [address] [place] [address], [place] [address] 09 Aug, 2014 [facility] [address] [id number] [address] [place] [address], [place] [address] Aug, 2014 [facility] [address] [id number] [address] [place] [address], [place] [address] Jul, 2014 [facility] [address] [id number] [address] [place] [address], [place] [address] Jul, 2014 [facility] [address] [id number] [address] [place] [address], [place] [address] Jul, 2014 [facility] [address] [id number] [address] [place] [address], [place] [address] Jul, 2014 [facility] [address] [id number] [address] [place] [address], [place] [address] Jul, [facility] [address] [id number] [address] [place] [address], [place] [address] Jul, [facility] [address] [id number] [address] [place] [address], [place] [address] Jun, [facility] [address] [id number] [address] [place] [address], [place] [address] Jun, [facility] [address] [id number] [address] [place] [address], [place] [address] Jun, [facility] [address] [id number] [address] [place] [address], [place] [address] Jun, [facility] [address] [id number] [address] [place] [address], [place] [address] Jun, [facility] [address] [id number] [address] [place] [address], [place] [address] Jun, [facility] [address] [id number] [address] [place] [address], [place] [address] Jun, [facility] [address] [id number] [address] [place] [address], [place] [address] Jun, [facility] [address] [id number] [address] [place] [address], [place] [address] Jun, [facility] [address] [id number] [address] [place] [address] Jun, [facility] [address] [id number] [address] [place] [address], [place] [address] Jun, [facility] [address] [id number] [address] [place] [address], [place] [address] Jun, [facility] [address] [id number] [place] [id number] Jun, [facility] [address] [id number] [address] [place] [address], [place] [address] Jun, [facility] [address] [id number] [address] [place] [address], [place] [address] Jun, [facility] [address] [id number] [address] [place] [address], [place] [address] Jun, [facility] [address] [id number] [address] [place] [address], [place] [address] May, [facility] [address] [id number] [address] [place] [address] May, [facility] [address] [id number] [address] [place] [address], [place] [address] May, [facility] [address] [id number] [address] [place] [address], [place] [address] May, [facility] [address] [id number] [address] [place] [address] Apr, [facility] [address] [id number] [address] [place] [address] Apr, [facility] [address] [id number] [address] [place] [address], [place] [address] Apr, [facility] [address] [id number] [address] [place] [address], [place] [address] Apr, [facility] [address] [id number] [address] [place] [address], [place] [address] Apr, [facility] [address] [id number] [address] [place] [address], [place] [address] Apr, [facility] [address] [id number] [address] [place] [address], [place] [address] Apr, [facility] [address] [id number] [address] [place] [address], [place] [address] Apr, [facility] [address] [id number] [address] [place] [address], [place] [address] Apr, [facility] [address] [id number] [address] [place] [address], [place] [address] Apr, [facility] [address] [id number] [address] [place] [address], [place] [address] Apr, [facility] [address] [id number] [address] [place] [address], [place] [address] Apr, [facility] [address] [id number] [address] [place] [address], [place] [address] Apr, [facility] [address] [id number] [address] [place] [address], [place] [address] Apr, [facility] [address] [id number] [address] [place] [address], [place] [address] Apr, [facility] [address] [id number] [address] [place] [address], [place] [address] Apr, [facility] [address] [id number] [address] [place] [address], [place] [address] Apr, [facility] [address] [id number] [address] [place] [address], [place] [address] Apr, [facility] [address] [id number] [address] [place] [address], [place] [address] Apr, [facility] [address] [id number] [address] [place] [address], [place] [address] Apr, [facility] [address] [id number] [address] [place] [address], [place] [address] Mar, [facility] [address] [id number] [address] [place] [address], [place] [address] Mar, [facility] [address] [id number] [address] [place] [address], [place] [address] Mar, [facility] [address] [id number] [address] [place] [address], [place] [address] Mar, [facility] [address] [id number] [address] [place] [address], [place] [address] Mar, [facility] [address] [id number] [address] [place] [address], [place] [address] Mar, [facility] [address] [id number] [address] [place] [address], [place] [address] Mar, [facility] [address] [id number] [address] [place] [address], [place] [address] Mar, [facility] [address] [id number] [address] [place] [address], [place] [address] Mar, [facility] [address] [id number] [address] [place] [address], [place] [address] Mar, [facility] [address] [id number] [address] [place] [address], [place] [address] Feb, [facility] [address] [id number] [address] [place] [address], [place] [address] Feb, [facility] [address] [id number] [address] [place] [address], [place] [address] Feb, [facility] [address] [id number] [address] [place] [address], [place] [address] Feb, [facility] [address] [id number] [address] [place] [address], [place] [address] Jan, [facility] [address] [id number] [address] [place] [address], [place] [address] Jan, [facility] [address] [id number] [address] [place] [address], [place] [address] Jan, [facility] [address] [id number] [facility] [place] [address] Jan, [facility] [address] [id number] [address] [place] [address], [place] [address] Jan, [facility] [address] [id number] [address] [place] [address], [place] [address] Jan, [facility] [address] [id number] [address] [place] [address], [place] [address] Dec, [facility] [address] [id number] [address] [place] [address], [place] [address] Dec, [facility] [address] [id number] [address] [place] [address], [place] [address] Nov, [facility] [address] [id number] [address] [place] [address], [place] [address] Nov, [facility] [address] [id number] [address] [place] [address], [place] [address] Nov, [facility] [address] [id number] [address] [place] [address], [place] [address] Nov, [facility] [address] [id number] [address] [place] [address], [place] [address] Nov, [facility] [address] [id number] [address] [place] [address], [place] [address] Nov, [facility] [address] [id number] [address] [place] [address], [place] [address] Sep, [facility] [address] [id number] [address] [place] [address], [place] [address] Sep, [facility] [address] [id number] [address] [place] [address], [place] [address] Sep, [facility] [address] [id number] [address] [place] [address], [place] [address] Sep, [facility] [address] [id number] [address] [place] [address], [place] [address] Aug, [facility] [address] [id number] [address] [place] [address], [place] [address] Aug, [facility] [address] [id number] [address] [place] [address], [place] [address] Jul, [facility] [address] [id number] [address] [place] [address], [place] [address] Jul, [facility] [address] [id number] [address] [place] [address], [place] [address] Jun, [facility] [address] [id number] [address] [place] [address], [place] [address] Jun, [facility] [address] [id number] [address] [place] [address], [place] [address] Jun, [facility] [address] [id number] [address] [place] [address], [place] [address] Jun, [facility] [address] [id number] [address] [place] [address], [place] [address] May, [facility] [address] [id number] [address] [place] [address], [place] [address] May, [facility] [address] [id number] [address] [place] [address], [place] [address] May, [facility] [address] [id number] [address] [place] [address], [place] [address] May, [facility] [address] [id number] [address] [place] [address], [place] [address] May, [facility] [address] [id number] [address] [place] [address], [place] [id number] May, [facility] [address] [id number] [address] [place] [address], [place] [address] Apr, [facility] [address] [id number] [address] [place] [address], [place] [address] Apr, [facility] [address] [id number] [address] [place] [address], [place] [address] Apr, [facility] [address] [id number] [address] [place] [address], [place] [address] Apr, [facility] [address] [id number] [address] [place] [address], [place] [address] Mar, [facility] [address] [id number] [address] [place] [address], [place] [address] Mar, [facility] [address] [id number] [address] [place] [address], [place] [address] Mar, [facility] [address] [id number] [address] [place] [address], [place] [address] Mar, [facility] [address] [id number] [address] [place] [address], [place] [address] Feb, [facility] [address] [facility] [facility] [address] [id number] [place] [id number] Jan, [facility] [address] [id number] [address] [place] [address], [place] [address] Jan, [facility] [address] [id number] [address] [place] [address], [place] [address] Dec, [facility] [address] [id number] [address] [place] [address], [place] [address] Dec, [facility] [address] [id number] [address] [place] [address], [place] [address] Dec, [facility] [address] [id number] [place] [id number] Dec, [facility] [address] [id number] [address] [place] [address], [place] [address] Nov, [facility] [address] [id number] [address] [place] [address], [place] [id number] 14 Nov, 2012 [facility] [address] [id number] [address] [place] [address], [place] [address] 12 Nov, 2012 [facility] [address] [facility] [id number] [address] [place] [id number] Nov, [facility] [address] [facility] [id number] [address] [place] [phone] Nov, [facility] [address] [facility] [id number] [address] [place] [id number] October, [facility] [address] [facility] [id number] [address] [place] [id number] October, [facility] [address] [facility] [id number] [address] [place] [id number] Aug, [facility] [address] [facility] [id number] [address] [place] [id number] Nov, IMMUNIZATIONS No Known Immunizations SOCIAL HISTORY Never Assessed REASON FOR VISIT PLAN OF CARE VITAL SIGNS Height 72 in 2014-07-10 Weight 443.56 lbs 2014-07-10 Temperature 100.3 degrees Fahrenheit 2014-07-10 Heart Rate 80 bpm 2014-07-10 Respiratory Rate 18 2014-07-10 Blood pressure systolic 120 mmHg 2014-07-10 Blood pressure diastolic 60 mmHg 2014-07-10 MEDICATIONS Unknown Medications RESULTS No Results PROCEDURES Procedure Date Ordered Result Body Site DRAINAGE OF SKIN ABSCESS Jul 10, 2014 INSTRUCTIONS MEDICATIONS ADMINISTERED No Known Medications [...] 03/2016 Hospitalization History gastric sleeve Hospitalization History [facility] Trouble with left shoulder blade 08/2017
--- OUTSIDE RECORDS SUMMARY | 2019-11-29 09:13 | XMS REPORT ---
Author Author Curt Hughes 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 Role Phone Saul [facility] JASON Unavailable PROBLEMS Type Condition ICD9-CM Code SRO74-HE Code Onset Dates Condition S tatus SNOMED Code Problem Hyperlipemia E78.5 Active 3972312 4 Problem Insomnia G47.00 Active 437285783 Problem Morbid obesity E66.01 Active 59038 6002 Problem Benign essential hypertension I10 Active 8634618 Problem Renal insufficiency N28.9 Active 646388679 Problem Edema R60.9 Active 295985507 Problem Vitamin D deficiency E55.9 Active 05469816 Problem Mixed obsessional thoughts and acts F42.2 Active 93133089 Problem BMI 45.0-49.9, adult Z68.42 Active 785999173 Problem Other chronic pain G89.29 Active 8 2856692 Problem Severe episode of recurrent major depressive disorder, without psychotic features F33.2 Active 88623528 Problem Callous ulcer, limited to breakdown of skin L98.49 1 Active Problem Metabolic syndrome E88.81 Active 2 82090471 Problem DANIELA (generalized anxiety disorder) F41.1 Active 12994457 Problem Sciatica, right side M54.31 Active [id number] Problem 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 [address] [id number] [id number] Jan, [facility] [address] [facility] [id number] [place] [address] Jan, [facility] [address] [facility] [address] [id number][place] [id number] Jan, [facility] [address] [id number], [place] [id number] Dec, Callous ulcer, limited to breakdown of s kin L98.491 and Morbid obesity E66.01 [facility] [address] [facility] [id number] [address] [place] [address] Dec, [facility] [address] [facility] [id number] [address] [place] [address] Dec, [facility] [address] [facility] [id number] [address] [place] [address] Dec, [facility] [address] [facility] [id number] [address] [place] [address] Dec, [facility] [address] [facility] [id number] [address] [place] [address] Dec, Severe episode of recurrent major depressive disorder, without psychotic features F33.2 [facility] [address] [facility] [id number] [address] [place] [address] Dec, DANIELA (generalized anxiety dis order) F41.1 ; Severe episode of recurrent major depressive disorder, without psychotic features F33.2 ; Mixed obsessional thoughts and acts F42.2 and Dependent personality disorder F60.[address] [facility] [address] [facility] [id number] [id number] Dec, Morbid obesity E66.01 [facility] [address] [facility] [id number] [address] [place] [phone] Dec, [facility] [address] [facility] [id number] [address] [place] [address] Dec, [address] [address] Nov, [facility] [id number][place] [id number] Nov, [facility] [address] [facility] [id number] [address] [place] [phone] Nov, [facility] [address] [facility] [id number] [address] [place] [address] Nov, [facility] [address] [facility] [id number] [address] [place] [address] Nov, DANIELA (generalized anxiety dis order) F41.1 ; Severe episode of recurrent major depressive disorder, without psychotic features F33.2 ; Mixed obsessional thoughts and acts F42.2 and Dependent personality disorder F60.[address] [facility] [id number] [place] [id number] Nov, Morbid obesity E66.01 [facility] [address] [facility] [id number] [address] [place] [address] Nov, [facility] [address] [facility] [id number] [address] [place] [address] Nov, DANIELA (generalized anxiety dis order) F41.1 ; Mixed obsessional thoughts and acts F42.2 ; Severe episode of recurrent major depressive disorder, without psychotic features F33.2 and Dependent personality disorder F60.[address] [facility] [address] [id number], [place] [id number] October, Morbid obesity E66.01 [facility] [id number] [place] [address] [id number] October, Benign essential hypertension I10 and Mo rbid obesity E66.01 [facility] [address] [id number], [place] [id number] October, [facility] [address] [facility] [id number] [address] [place] [address] October, Severe episode of recurrent major depressive disorder, without psychotic features F33.2 [facility] [address] [id number], [place] [id number] October, Morbid obesity E66.[address] [facility] [address] [id number], [place] [id number] October, [facility] [address] [facility] [id number] [address] [place] [address] October, Severe episode of recurrent major depressive disorder, without psychotic features F33.2 ; DANIELA (generalized anxiety disorder) F41.1 ; Mixed obsessional thoughts and acts F42.2 and Dependent personality disorder F60.[address] [id number], [place] [id number] October, Morbid obesity E66.01 [facility] [address] [place] [id number] [address] [place] [id number] Sep, Dental examination Z01.[address] [id number], [place] [id number] Sep, [facility] [address] [place] [address] Sep, Sore in mouth K13.79 and Mor bid obesity E66.01 [facility] [address] [place] [id number] [address] [place] [address] Sep, Dental examination Z01.20 [facility] [address] [place] [address] Sep, Anxiety disorder, unspecifie d F41.[address] [id number], [place] [id number] Sep, Mouth ulcer K12.[address] [id number], [place] [id number] Sep, Morbid obesity E66.[address] [id number] [place] [address] [id number] Sep, Allergic rhinitis, unspecified seasonali ty, unspecified trigger J30.9 and Shortness of breath R06.[address] [id number] [place] [address] [id number] Sep, 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 [id number], [place] [id number] Aug, Mouth abscess K12.2 ; Mouth ulcer K12.1 ; Bloating R14.0 and Morbid obesity E66.01 [facility] [address] [id number], [place] [id number] Aug, [facility] [address] [id number], [place] [id number] Aug, [facility] [address] [place] [address] AVE [id number], [place] [id number] Jul, Major depressive disorder, recurrent, mo derate F33.1 ; Abscess of arm, left L02.414 ; BMI 45.0-49.9, adult Z68.42 and Morbid obesity E66.01 [facility] [address] [facility] [address] [id number], [place] [id number] Jul, [facility] [address] [place] [address] AVE [id number], [place] [id number] Jul, [facility] [address] [place] [address] AVE [id number], [place] [id number] Jun, Pain in right knee M25.561 and Other chr onic pain G89.29 [facility] [address] [address] [place] [address] AVE [id number], [place] [id number] Jun, Benign essential hypertension I10 ; BMI 45.0-49.9, adult Z68.42 ; Morbid obesity E66.01 ; Vitamin D deficiency E55.9 ; Insomnia G47.00 ; 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 [address] [place] [address] AVE [id number], [place] [id number] Jun, Irritable mood R45.4 [facility] [address] [facility] [id number] [address] [place] [address] May, [facility] [address] [facility] [id number] [address] [place] [address] May, [facility] [address] [facility] [id number] [address] [place] [address] May, Recurrent major depressive d isorder, in partial remission F33.41 ; Mixed obsessional thoughts and acts F42.2 ; 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 and BMI 45.0-49.9, adult Z68.42 [facility] [address] [facility] [id number] [address] [place] [address] Apr, [facility] [address] [facility] [id number] [address] [place] [address] Apr, [place] [address] [place] [id number] [address] [place] [address] Apr, [place] [address] [place] [id number] [address] [place] [address] Apr, [place] [address] [place] [id number] [address] [place] [address] Mar, Mixed obsessional thoughts a nd acts F42.2 ; Recurrent major depressive disorder, in partial remission F33.41 ; DANIELA (generalized anxiety disorder) F41.1 and BMI 45.0-49.9, adult Z68.[address] [place] [place] [address] [id number], [place] [id number] Mar, [place] [address] [id number], [place] [id number] Mar, BMI 45.0-49.9, adult Z68.42 ; Instabilit y of right knee joint M25.361 and Rash R21 [place] [address] [facility] [id number] [address] [place] [address] Jan, Recurrent major depressive d isorder, in partial remission F33.41 ; Mixed obsessional thoughts and acts F42.2 and BMI 45.0-49.9, adult Z68.[address] [place] [id number] [place] [id number] Jan, [facility] [address] [id number], [place] [id number] Jan, Benign essential hypertension I10 ; BMI 45.0-49.9, adult Z68.42 ; Metabolic syndrome E88.81 and Allergic rhinitis, unspecified seasonality, unspecified trigger J30.9 [facility] [address] [facility] [id number] [address] [place] [address] Dec, DANIELA (generalized anxiety dis order) F41.1 and Depressive disorder, not elsewhere classified F32.[address] [facility] [address] [id number], [place] [id number] Dec, Recurrent major depressive disorder, in partial remission F33.41 [facility] [address] [id number], [place] [id number] Dec, [facility] [address] [id number], [place] [id number] Nov, [facility] [address] [id number], [place] [id number] Nov, Recurrent major depressive disorder, in partial remission F33.41 [place] [address] [facility] [id number] [address] [place] [address] Nov, Recurrent major depressive d isorder, in partial remission F33.41 ; Mixed obsessional thoughts and acts F42.2 ; DANIELA (generalized anxiety disorder) F41.1 and BMI 45.0-49.9, adult Z68.42 [facility] [address] [id number], [place] [id number] Nov, [facility] [address] [id number], [place] [id number] Nov, Other conjunctivitis of both eyes H10.89 and Sciatica, right side M54.31 [facility] [address] [id number], [place] [id number] Nov, [facility] [address] [id number], [place] [id number] Nov, [facility] [address] [id number], [place] [id number] October, [facility] [address] [id number], [place] [id number] October, [facility] [address] [facility] [id number] [place] [address] October, BMI 45.0-49.9, adult Z68.42 ; Mixed obsessional thoughts and acts F42.2 ; Recurrent major depressive disorder, in partial remission F33.41 and DANIELA (generalized anxiety disorder) F41.1 [facility] [address] [id number], [place] [id number] October, Benign essential hypertension I10 ; Morb id obesity E66.01 and BMI 45.0-49.9, adult Z68.42 [facility] [address] [id number], [place] [id number] Sep, [facility] [address] [id number], [place] [id number] Sep, [facility] [address] [id number], [place] [id number] Sep, [facility] [address] [id number], [place] [id number] Sep, Hospital discharge follow-up Z09 ; Aller gic rhinitis, unspecified seasonality, unspecified trigger J30.9 and Shortness of breath R06.02 [facility] [address] [id number], [place] [id number] Sep, Recurrent major depressive disorder, in partial remission F33.41 [facility] [address] [id number], [place] [id number] Aug, Irritable mood R45.4 [facility] [address] [facility] [id number] [place] [address] Aug, [facility] [address] [id number], [place] [id number] Jul, Benign essential hypertension I10 ; Robert a R60.9 and Impacted cerumen of left ear H61.22 [place] [address] [facility] [id number] [address] [place] [address] 14 Jul, 2017 Major depression F32.9 ; Rec urrent major depressive disorder, in partial remission F33.41 and Anxiety F41.9 [place] [address] [facility] [id number] [address] [place] [address] Jun, Major depression F32.9 ; Rec urrent major depressive disorder, in partial remission F33.41 and Anxiety F41.[address] [facility] [address] [id number], [place] [id number] Jun, Major depression F32.9 ; Morbid obesity E66.01 ; Irritable mood R45.4 ; Hand weakness R29.898 and Vitamin D deficiency E55.[address] [facility] [id number] [place] [id number] Jun, [facility] [id number] [place] [address] [id number] May, Major depression F32.9 [place] [address] [facility] [id number] [address] [place] [address] May, Major depression F32.9 [facility] [id number] [place] [address] [id number] May, BMI 50.0-59.9, adult Z68.43 ; Major depr ession F32.9 ; Anxiety F41.9 ; Hypertrophic toenail L60.2 and Pain of left great toe M79.[address] [facility] [address] [id number], [place] [id number] May, Recurrent major depressive disorder, in partial remission F33.41 [place] [address] [facility] [id number] [address] [place] [address] Apr, [facility] [address] [id number], [place] [id number] Apr, [facility] [address] [facility] [id number] [address] [place] [address] Apr, Major depression F32.9 [facility] [address] [id number], [place] [id number] Apr, Severe episode of recurrent major depres sive disorder, without psychotic features F33.2 ; Anxiety F41.9 and Insomnia G47.00 [facility] [address] [address] [id number], [place] [id number] Apr, [facility] [address] [facility] [id number] [address] [place] [address] Apr, [facility] [address] [id number], [place] [id number] Apr, [facility] [address] [id number], [place] [id number] Mar, [facility] [address] [id number], [place] [id number] Mar, Allergic conjunctivitis of both eyes H10 .13 [facility] [address] [facility] [id number] [address] [place] [address] Mar, Major depression F32.9 [facility] [address] [id number], [place] [id number] Mar, Metabolic syndrome E88.81 ; History of g astric bypass Z98.890 ; Benign essential hypertension I10 ; Allergic conjunctivitis of both eyes H10.13 and Morbid obesity E66.01 [facility] [address] [facility] [id number] [address] [place] [address] Mar, Major depression F32.9 [facility] [address] [id number], [place] [id number] Feb, [facility] [address] [facility] [id number] [address] [place] [address] Feb, Major depression F32.[address] [place] [address] [id number], [place] [id number] Feb, Subacute maxillary sinusitis J01.00 and Bronchitis J40 [facility] [address] [facility] [id number] [address] [place] [address] Feb, Major depressive disorder, r ecurrent, moderate F33.1 [facility] [address] [id number], [place] [id number] Jan, [address] [id number] [place] [address] [id number] Jan, Acute non-recurrent maxillary sinusitis J01.00 and Skin tag L91.[address] [id number], [place] [id number] Jan, Cough R05 and Sinus congestion R09.[address] [id number], [place] [id number] Jan, [address] [id number] [place] [address] [id number] Jan, Benign essential hypertension I10 ; Hist ory of gastric bypass Z98.890 and Nausea and vomiting in adult R11.2 [place] [address] [facility] [id number] [address] [place] [address] Jan, Major depressive disorder, r ecurrent, moderate F33.1 [facility] [address] [facility] [id number] [address] [place] [address] Dec, Insomnia G47.00 ; Recurrent major depressive disorder, in partial remission F33.41 and Morbid obesity E66.01 [facility] [address] [facility] [address] [id number], [place] [id number] Dec, [facility] [address] [id number], [place] [id number] Dec, Chronic bacterial conjunctivitis of left eye H10.[address] [facility] [id number] [place] [id number] Nov, [address] [id number], [place] [id number] Nov, Dental examination Z01.[address] [id number], [place] [id number] 23 Nov, 2016 Benign essential hypertension I10 ; Hist ory of gastric bypass Z98.890 and Nausea and vomiting in adult R11.2 [place] [address] [place] [address] 13 Nov, 2016 Major depressive disorder, r ecurrent, moderate F33.1 ; Generalized anxiety disorder F41.1 and Insomnia due to other mental disorder F51.05 [place] [address] [place] [id number] [address] [place] [address] 12 Nov, 2016 Recurrent major depressive d isorder, in partial remission F33.41 ; Insomnia G47.00 and Morbid obesity E66.01 [facility] [address] [place] [id number] [facility] [id number] October, Abscess of left arm L02.414 [place] [id number] [place] [address] October, Morbid obesity E66.01 ; Lida r depression F32.9 and Recurrent major depressive disorder, in partial remission F33.41 [address] [id number], [place] [id number] Sep, Benign essential hypertension I10 ; Morb id obesity E66.01 ; S/P gastric bypass Z98.84 ; Abscess L02.91 and Chronic bacterial conjunctivitis of left eye H10.[id number] [place] [address] [id number] Sep, Dental examination Z01.20 [facility] [address] [facility] [id number] [address] [place] [address] Sep, Morbid obesity E66.01 ; Lida r depression F32.9 and Recurrent major depressive disorder, in partial remission F33.41 [place] [address] [facility] [id number] [address] [place] [address] Jul, [place] [address] [facility] [id number] [address] [place] [address] Jul, Major depressive disorder, r ecurrent, moderate F33.1 [place] [address] [facility] [id number] [address] [place] [address] Jul, Major depressive disorder, r ecurrent, moderate F33.1 and Generalized anxiety disorder F41.1 [facility] [address] [id number], [place] [id number] Jul, Cough R05 [place] [address] [facility] [id number] [address] [place] [address] Jul, Morbid obesity E66.01 ; Lida r depression F32.9 and Recurrent major depressive disorder, in partial remission F33.41 [facility] [id number] [place] [address] [id number] Jul, [facility] [id number] [place] [address] [id number] Jul, [place] [address] [id number] [place] [address] [id number] Jul, Gastroenteritis K52.9 and Cough R05 [place] [address] [id number] [place] [address] [id number] Jun, Acute bacterial conjunctivitis of left e ye H10.32 [place] [address] [facility] [id number] [address] [place] [phone] Jun, [place] [address] [facility] [id number] [address] [place] [address] Jun, Recurrent major depressive d isorder, in partial remission F33.41 [place] [address] [facility] [id number] [address] [place] [address] May, Major depression F32.9 and M orbid obesity E66.01 [facility] [address] [facility] [id number] [address] [place] [id number] May, [facility] [id number] [place] [address] [id number] May, Thrush B37.0 [facility] [address] [facility] [id number] [address] [place] [id number] Apr, Major depressive disorder, r ecurrent, moderate F33.1 [facility] [address] [facility] [id number] [address] [place] [id number] Apr, Insomnia G47.00 ; Major depr ession F32.9 and Recurrent major depressive disorder, in partial remission F33.41 [place] [address] [address] [facility] [id number] [address] [place] [phone] Apr, [place] [address] [address] [facility] [id number] [address] [place] [phone] 02 Apr, 2016 Major depression F32.9 and R ecurrent major depressive disorder, in partial remission F33.[address] [id number] [id number] Mar, Benign essential hypertension I10 ; Morb id obesity E66.01 ; Impacted cerumen of both ears H61.23 ; Laceration of finger of right hand, initial encounter S61.219A and Encounter for immunization Z23 [facility] [address] [facility] [id number] [address] [place] [id number] 17 Mar, 2016 [facility] [address] [facility] [id number] [address] [place] [id number] Mar, [place] [address] [address] [facility] [facility] [id number] [address] [place] [address] Mar, [address] [id number][place] [id number] Feb, Nausea R11.0 ; Blood in the stool K92.1 and Benign essential hypertension I10 [place] [address] [address] [facility] [id number] [address] [place] [address] Feb, Major depression F32.9 and R ecurrent major depressive disorder, in partial remission F33.[address] [facility] [address] [id number][place] [id number] Feb, [facility] [address] [id number], [place] [id number] Feb, Recurrent major depressive disorder, in partial remission F33.[address] [facility] [address] [id number][place] [id number] Jan, [facility] [address] [id number], [place] [id number] Jan, Benign essential hypertension I10 ; Robert a R60.9 and Hyperlipidemia, unspecified hyperlipidemia type E78.5 [facility] [address] [id number][place] [id number] Jan, Recurrent major depressive disorder, in partial remission F33.41 [facility] [address] [id number] [place] [id number] Jan, [facility] [address] [id number], [place] [id number] Jan, [facility] [address] [id number][place] [id number] Jan, [facility] [address] [facility] [id number] [address] [place] [address] Jan, [facility] [address] [facility] [id number] [address] [place] [address] Dec, [facility] [address] [facility] [id number] [address] [place] [address] Nov, [facility] [address] [facility] [id number] [address] [place] [address] Nov, Major depression F32.9 [facility] [address] [facility] [id number] [address] [place] [address] Nov, [facility] [address] [facility] [id number] [address] [place] [address] Nov, [place] [address] [address] [facility] [id number] [address] [place] [address] Nov, Major depressive disorder, r ecurrent episode, mild F33.0 and Anxiety F41.9 [facility] [address] [id number][place] [id number] Nov, [facility] [id number] [place] [address] [id number] October, Left elbow pain M25.522 and Other season al allergic rhinitis J30.2 [facility] [address] [facility] [address] [id number] [place] [address] [id number] October, [place] [address] [facility] [id number] [address] [place] [address] October, Major depressive disorder, r ecurrent, moderate F33.1 [place] [address] [address] [facility] [id number] [address] [place] [address] October, Major depression F32.9 [place] [address] [address] [facility] [id number] [address] [place] [address] Sep, [place] or callus L84 and Onych omycosis B35.1 [place] [address] [place] [id number] [address] [place] [address] Sep, Major depressive disorder, r ecurrent, moderate F33.1 [place] [address] [facility] [id number] [address] [place] [address] Sep, Major depression F32.9 [place] [address] [facility] [id number] [address] [place] [address] Sep, Moderate episode of recurren t major depressive disorder F33.1 [facility] [address] [id number], [place] [id number] Sep, Muscle strain T14.8 [place] [address] [facility] [id number] [address] [place] [address] Aug, Major depression F32.9 [facility] [address] [facility] [id number] [address] [place] [address] Aug, Major depression F32.9 [facility] [address] [facility] [id number] [address] [place] [address] Jul, Morbid obesity E66.01 and Ma cora depression F32.9 [facility] [address] [facility] [id number] [address] [place] [address] Jul, Depression, major, recurrent , moderate F33.1 [facility] [address] [place] [address] AVE [id number] [place] [id number] Jul, [facility] [address] [facility] [id number] [address] [place] [address] Jul, [facility] [address] [place] [id number] [address] [place] [address] Jul, Major depression F32.9 and M orbid obesity E66.[address] [id number] [place] [address] [id number] Jul, Type II diabetes mellitus E11.9 ; Callus of foot L84 ; Benign essential hypertension I10 and Renal insufficiency N28.9 [facility] [address] [facility] [id number] [address] [place] [address] Jul, Depression, major, recurrent , moderate F33.1 [facility] [address] [facility] [id number] [address] [place] [address] Jul, Major depression F32.9 [facility] [address] [facility] [id number] [address] [place] [address] Jul, [facility] [address] [facility] [id number] [address] [place] [address] Jun, Major depression F32.9 [facility] [address] [place] [id number] [address] [place] [id number] Jun, Major depressive disorder, r ecurrent, moderate F33.1 [place] [address] [place] [id number] [address] [place] [address] Jun, [place] [address] [place] [id number] [address] [place] [id number] Jun, Major depressive disorder, r ecurrent, moderate F33.1 and Major depression F32.[id number] [place] [address] [id number] Jun, Type II diabetes mellitus E11.9 [place] [address] Jun, Depression, major, recurrent , moderate F33.1 [place] [address] [place] [id number] [address] [place] [address] May, Major depressive disorder, r ecurrent, moderate F33.1 [place] [address] [place] [id number] [address] [place] [id number] May, [id number] [place] [address] [id number] May, Edema R60.9 [place] [address] [place] [id number] [address] [place] [address] 17 May, 2015 Insomnia G47.00 and Major de pression F32.[address] [place] [id number] [place] [address] [id number] 15 May, 2015 Morbid obesity E66.01 ; Edema R60.9 ; Sh ortness of breath R06.02 ; Benign essential hypertension I10 and Renal insufficiency N28.[address] [place] [id number] [place] [address] [id number] 14 May, 2015 Hyperlipemia 272.4 and Renal insufficien cy N28.9 [place] [address] [place] [id number] [address] [place] [address] Apr, Major depression F32.9 [place] [address] [facility] [id number] [address] [place] [address] Apr, [place] [address] [facility] [id number] [address] [place] [address] Apr, Major depressive disorder, r ecurrent, moderate F33.1 [facility] [address] [id number], [place] [id number] Apr, Type II diabetes mellitus E11.9 ; Benign essential hypertension I10 ; Edema R60.9 and Renal insufficiency N28.9 [place] [address] [facility] [id number] [address] [place] [address] Mar, Major depressive disorder, r ecurrent, moderate F33.1 [place] [address] [facility] [id number] [address] [place] [address] Mar, [place] [address] [facility] [id number] [address] [place] [address] Mar, Major depression F32.9 [facility] [id number] [place] [address] [id number] Mar, Morbid obesity E66.01 ; Benign essential hypertension I10 and Type II diabetes mellitus E11.9 [place] [address] [facility] [id number] [address] [place] [address] Feb, Major depressive disorder, r ecurrent, moderate F33.1 [place] [address] [facility] [id number] [address] [place] [address] Feb, Major depressive disorder, r ecurrent episode, in partial or unspecified remission 296.35 ; Anxiety state, unspecified 300.00 and Morbid obesity 278.01 [place] [address] [facility] [id number] [address] [place] [address] Feb, [facility] [address] [id number][place] [id number] Feb, Vomiting 787.03 and Viral syndrome 079.9 9 [place] [address] [facility] [id number] [address] [place] [address] 15 Feb, 2015 Major depression, recurrent 296.30 ; Generalized anxiety disorder 300.02 and No condition on [place] V71.09 [facility] [address] [place] [address] AVE [id number], [place] [id number] Feb, Skin tag 701.9 [facility] [address] [facility] [id number] [address] [place] [address] Feb, [facility] [address] [place] [id number] [address] [place] [address] Jan, Depression, major, recurrent , moderate 296.[address] [id number] [place] [address] [id number] Jan, Nausea and vomiting 787.01 ; Rib pain on right side 786.50 and Fall on or from sidewalk curb E880.1 [facility] [address] [place] [id number] [address] [place] [address] Jan, [facility] [address] [place] [id number] [address] [place] [address] Jan, Major depressive disorder, r ecurrent episode, in partial or unspecified remission 296.35 and Anxiety state, unspecified 300.00 [facility] [address] [place], [place] [address] [id number][place] [id number] Jan, [facility] [address] [facility] [id number] [address] [place] [address] Jan, Depression, major, recurrent , moderate 296.32 [facility] [address] [facility] [id number] [address] [place] [address] Jan, Major depression, recurrent 296.30 ; No condition on [place] II V71.09 and No condition on axis III V71.09 [facility] [address] [place], [place] [address] [id number], [place] [id number] Jan, Drug-induced nausea and vomiting 787.01 [facility] [address] [facility] [id number] [address] [place] [address] Jan, Depression, major, recurrent , moderate 296.32 [facility] [address] [facility] [id number] [address] [place] [address] Dec, Depression, major, recurrent , moderate 296.[address] [facility] [id number] [place] [address] [id number] Dec, Morbid obesity 278.01 ; Metabolic syndro me 277.7 ; Hyperlipemia 272.4 ; Benign essential hypertension 401.1 ; Dietary counseling V65.3 ; Exercise counseling V65.41 and Inflamed skin tag 701.9 [place] [address] [address] Dec, Depression, major, recurrent , moderate 296.32 [place] [address] [address] Dec, [place] [address] [address] Dec, Major depression, recurrent 296.30 ; Anxiety, generalized 300.02 and No condition on [place] V71.09 [place] [address] [address] Dec, Depression, major, recurrent , moderate 296.32 [place] [address] [place] [id number] [address] [place] [address] Dec, Major depressive disorder, r ecurrent episode, moderate 296.32 [place] [id number] [place] [address] Dec, Depression, major, recurrent , moderate 296.32 [place] [address] [place] [id number] [address] [place] [address] Dec, Depression, major, recurrent , moderate 296.32 [place] [address] [place] [id number] [address] [place] [address] Dec, Depression, major, recurrent , moderate 296.32 [place] [address] [address] Dec, Depression, major, recurrent , moderate 296.32 [facility] [address] [address] Nov, Depression, major, recurrent , moderate 296.32 [facility] [address] [address] Nov, Major depression 296.20 ; So cial phobia 300.23 and No condition on [place] V71.09 [facility] [address] [address] Nov, Depression, major, recurrent , moderate 296.32 [place] [address] [address] Nov, Major depressive disorder, r ecurrent episode, moderate 296.32 and Generalized anxiety disorder 300.02 [facility] [address] [address] Nov, Depression, major, recurrent , moderate 296.32 [facility] [address] [address] Nov, Depression, major, recurrent , moderate 296.32 [facility] [address] [address] October, Generalized anxiety disorder 300.02 ; No condition on [place] V71.09 and Major depressive disorder, recurrent 296.30 [facility] [address] [address] Sep, [facility] [address] [address] Sep, [facility] [address] [address] Aug, [facility] [address] [address] Aug, [facility] [address] [id number] [facility] [place] [address] 23 Aug, 2014 [facility] [address] [id number] [address] [place] [address], [place] [address] 23 Aug, 2014 [facility] [address] [id number] [facility] [place] [address] 20 Aug, 2014 [facility] [address] [id number] [address] [place] [address], [place] [address] 20 Aug, 2014 [facility] [address] [id number] [address] [place] [address], [place] [address] 20 Aug, 2014 [facility] [address] [id number] [address] [place] [address], [place] [address] 20 Aug, 2014 [facility] [address] [id number] [address] [place] [address], [place] [address] 13 Aug, 2014 [facility] [address] [id number] [address] [place] [address], [place] [address] 13 Aug, 2014 [facility] [address] [id number] [address] [place] [address], [place] [address] 13 Aug, 2014 [facility] [address] [id number] [address] [place] [address], [place] [address] 13 Aug, 2014 [facility] [address] [id number] [address] [place] [address], [place] [address] 12 Aug, 2014 [facility] [address] [id number] [address] [place] [address], [place] [address] 12 Aug, 2014 [facility] [address] [id number] [address] [place] [address], [place] [address] 10 Aug, 2014 [facility] [address] [id number] [address] [place] [address], [place] [address] 10 Aug, 2014 [facility] [address] [id number] [address] [place] [address], [place] [address] 09 Aug, 2014 [facility] [address] [id number] [address] [place] [address], [place] [address] Aug, [facility] [address] [id number] [address] [place] [address], [place] [address] Jul, [facility] [address] [id number] [address] [place] [address], [place] [address] Jul, [facility] [address] [id number] [address] [place] [address], [place] [address] Jul, [facility] [address] [id number] [address] [place] [address], [place] [address] Jul, [facility] [address] [id number] [address] [place] [address], [place] [address] Jul, [facility] [address] [id number] [address] [place] [address], [place] [address] Jul, [facility] [address] [id number] [address] [place] [address], [place] [address] Jun, [facility] [address] [id number] [address] [place] [address], [place] [address] Jun, [facility] [address] [id number] [address] [place] [address], [place] [address] Jun, [facility] [address] [id number] [address] [place] [address], [place] [address] Jun, [facility] [address] [id number] [address] [place] [address], [place] [address] Jun, [facility] [address] [id number] [address] [place] [address], [place] [address] Jun, [facility] [address] [id number] [address] [place] [address], [place] [address] Jun, [facility] [address] [id number] [address] [place] [address], [place] [address] Jun, [facility] [address] [id number] [address] [place] [address], [place] [address] Jun, [facility] [address] [id number] [address] [place] [address], [place] [address] Jun, [facility] [address] [id number] [address] [place] [address], [place] [address] Jun, [facility] [address] [id number] [address] [place] [address], [place] [address] Jun, [facility] [address] [id number] [place] [id number] Jun, [facility] [address] [id number] [address] [place] [address], [place] [address] Jun, [facility] [address] [id number] [address] [place] [address], [place] [address] Jun, [facility] [address] [id number] [address] [place] [address], [place] [address] Jun, [facility] [address] [id number] [address] [place] [address], [place] [address] May, [facility] [address] [id number] [address] [place] [address], [place] [address] May, [facility] [address] [id number] [address] [place] [address], [place] [address] May, [facility] [address] [id number] [address] [place] [address], [place] [address] May, [facility] [address] [id number] [address] [place] [address], [place] [address] Apr, [facility] [address] [id number] [address] [place] [address], [place] [address] Apr, [facility] [address] [id number] [address] [place] [address], [place] [address] Apr, [facility] [address] [id number] [address] [place] [address], [place] [address] Apr, [facility] [address] [id number] [address] [place] [address], [place] [address] Apr, [facility] [address] [id number] [address] [place] [address], [place] [address] Apr, [facility] [address] [id number] [address] [place] [address], [place] [address] Apr, [facility] [address] [id number] [address] [place] [address], [place] [address] Apr, [facility] [address] [id number] [address] [place] [address], [place] [address] Apr, [facility] [address] [id number] [address] [place] [address], [place] [address] Apr, [facility] [address] [id number] [address] [place] [address], [place] [address] Apr, [facility] [address] [id number] [address] [place] [address], [place] [address] Apr, [facility] [address] [id number] [address] [place] [address], [place] [address] Apr, [facility] [address] [id number] [address] [place] [address], [place] [address] Apr, [facility] [address] [id number] [address] [place] [address], [place] [address] Apr, [facility] [address] [id number] [address] [place] [address], [place] [address] Apr, [facility] [address] [id number] [address] [place] [address], [place] [address] Apr, [facility] [address] [id number] [address] [place] [address], [place] [address] Apr, [facility] [address] [id number] [address] [place] [address], [place] [address] Apr, [facility] [address] [id number] [address] [place] [address], [place] [address] Apr, [facility] [address] [id number] [address] [place] [address], [place] [id number] Mar, [facility] [address] [id number] [address] [place] [address], [place] [address] Mar, [facility] [address] [id number] [address] [place] [address], [place] [address] Mar, [facility] [address] [id number] [address] [place] [address], [place] [address] Mar, [facility] [address] [id number] [address] [place] [address], [place] [address] Mar, [facility] [address] [id number] [address] [place] [address], [place] [address] Mar, [facility] [address] [id number] [address] [place] [address], [place] [address] Mar, [facility] [address] [id number] [address] [place] [address], [place] [address] Mar, [facility] [address] [id number] [address] [place] [address], [place] [address] Mar, [facility] [address] [id number] [address] [place] [address], [place] [address] Mar, [facility] [address] [id number] [address] [place] [address], [place] [address] Feb, [facility] [address] [id number] [address] [place] [address], [place] [address] Feb, [facility] [address] [id number] [address] [place] [id number] Feb, [facility] [address] [id number] [address] [place] [address], [place] [address] Feb, [facility] [address] [id number] [address] [place] [address], [place] [address] Jan, [facility] [address] [id number] [address] [place] [address], [place] [address] Jan, [facility] [address] [id number] [facility] [place] [address] Jan, [facility] [address] [id number] [address] [place] [address], [place] [address] Jan, [facility] [address] [id number] [address] [place] [address], [place] [address] Jan, [facility] [address] [id number] [address] [place] [address], [place] [address] Jan, [facility] [address] [id number] [address] [place] [address], [place] [address] Dec, [facility] [address] [id number] [address] [place] [address], [place] [address] Dec, [facility] [address] [id number] [address] [place] [address], [place] [address] Nov, [facility] [address] [id number] [address] [place] [address], [place] [address] Nov, [facility] [address] [id number] [address] [place] [address], [place] [address] Nov, [facility] [address] [id number] [address] [place] [address], [place] [address] Nov, [facility] [address] [id number] [address] [place] [address], [place] [address] Nov, [facility] [address] [id number] [address] [place] [address], [place] [address] Nov, [facility] [address] [id number] [address] [place] [address], [place] [address] Sep, [facility] [facility] [address] [id number] [address] [place] [address], [place] [id number] Sep, [facility] [address] [id number] [address] [place] [address], [place] [id number] Sep, [facility] [address] [id number] [address] [place] [address], [place] [address] Sep, [facility] [address] [id number] [address] [place] [address], [place] [address] Aug, [facility] [address] [id number] [address] [place] [address], [place] [address] Aug, [facility] [address] [id number] [address] [place] [address], [place] [address] Jul, [facility] [address] [id number] [address] [place] [address], [place] [address] Jul, [facility] [address] [id number] [address] [place] [address], [place] [address] Jun, [facility] [address] [id number] [address] [place] [address], [place] [address] Jun, [facility] [address] [id number] [address] [place] [address], [place] [address] Jun, [facility] [address] [id number] [address] [place] [address], [place] [address] Jun, [facility] [address] [id number] [address] [place] [address], [place] [address] May, [facility] [address] [id number] [address] [place] [address], [place] [address] May, [facility] [address] [id number] [address] [place] [address], [place] [address] May, [facility] [address] [id number] [address] [place] [address], [place] [address] May, [facility] [address] [id number] [address] [place] [address], [place] [address] May, [facility] [address] [id number] [address] [place] [address], [place] [address] May, [facility] [address] [id number] [address] [place] [address], [place] [address] Apr, [facility] [address] [id number] [address] [place] [id number] Apr, [facility] [address] [id number] [address] [place] [address], [place] [address] Apr, [facility] [address] [id number] [address] [place] [address], [place] [address] Apr, [facility] [address] [id number] [address] [place] [address], [place] [address] Mar, [facility] [address] [id number] [address] [place] [address], [place] [address] Mar, [facility] [address] [id number] [address] [place] [address], [place] [address] Mar, [facility] [address] [id number] [address] [place] [address], [place] [address] Mar, [facility] [address] [id number] [address] [place] [address], [place] [address] Feb, [facility] [address] [id number] [place] [id number] Jan, [facility] [address] [id number] [address] [place] [address], [place] [address] Jan, [facility] [address] [id number] [address] [place] [id number] Dec, [facility] [address] [id number] [address] [place] [id number] Dec, [facility] [address] [id number] [address] [place] [id number] Dec, [facility] [address] [id number] [place] [id number] Dec, [facility] [address] [id number] [address] [place] [id number] Nov, [facility] [address] [id number] [address] [place] [id number] 14 Nov, 2012 [facility] [address] [id number] [address] [place] [id number] 12 Nov, 2012 [facility] [address] [id number] [address] [place] [id number] Nov, [facility] [address] [id number] [address] [place] [id number] Nov, [facility] [address] [id number] [address] [place] [id number] October, [facility] [address] [id number] [address] [place] [id number] October, [facility] [address] [facility] [id number] [address] [place] [id number] Aug, [facility] [address] [facility] [id number] [address] [place] [id number] 13 Nov, 2011 IMMUNIZATIONS No Known Immunizations SOCIAL HISTORY Never Assessed REASON FOR VISIT PLAN OF CARE VITAL SIGNS MEDICATIONS Unknown Medications RESULTS No Results PROCEDURES Procedure Date Ordered Result Body Site COMPREHENSIVE CARE MANAGEMENT Jul 28, 2014 INSTRUCTIONS MEDICATIONS ADMINISTERED No Known [...] 03/2016 Hospitalization History gastric sleeve Hospitalization History [facility] ER Trouble with left shoulder blade 08/2017
--- OUTSIDE RECORDS SUMMARY | 2019-11-29 09:13 | XMS REPORT ---
Author Author Curt Hughes [facility] Address [address] [place], [place] [id number] Care Team Providers Care Director Of Marketing Operations Name Role Phone Saul [facility] JASON Unavailable PROBLEMS Type Condition ICD9-CM Code UCT43-AS Code Onset Dates Condition S tatus SNOMED Code Problem Hyperlipemia E78.5 Active 1742002 4 Problem Insomnia G47.00 Active 785779071 Problem Morbid obesity E66.01 Active 43999 6002 Problem Benign essential hypertension I10 Active 9768214 Problem Renal insufficiency N28.9 Active 003145910 Problem Edema R60.9 Active 289789514 Problem Vitamin D deficiency E55.9 Active 60010313 Problem Mixed obsessional thoughts and acts F42.2 Active 96762294 Problem BMI 45.0-49.9, adult Z68.42 Active 987569547 Problem Other chronic pain G89.29 Active 8 4510369 Problem Severe episode of recurrent major depressive disorder, without psychotic features F33.2 Active 23964387 Problem Callous ulcer, limited to breakdown of skin L98.49 1 Active Problem Metabolic syndrome E88.81 Active 2 99352563 Problem DANIELA (generalized anxiety disorder) F41.1 Active 49028329 Problem Sciatica, right side M54.31 Active [id number] Problem 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 Active 69698845 Problem Chronic fatigue R53.82 Active 8422 9001 ALLERGIES No Information ENCOUNTERS Encounter Location Date Diagnosis [facility] [address] [id number] [id number] Jan, [facility] [address] [facility] [id number] [place] [address] Jan, [facility] [address] [id number][place] [id number] Jan, [facility] [address] [id number][place] [address] Dec, Callous ulcer, limited to breakdown of s kin L98.491 and Morbid obesity E66.01 [facility] [address] [facility] [id number] [address] [place] [phone] Dec, [facility] [address] [facility] [id number] [address] [place] [phone] Dec, [facility] [address] [facility] [id number] [address] [place] [phone] Dec, [facility] [address] [facility] [id number] [address] [place] [phone] Dec, [facility] [address] [facility] [id number] [address] [place] [phone] Dec, Severe episode of recurrent major depressive disorder, without psychotic features F33.2 [facility] [address] [facility] [id number] [address] [place] [phone] Dec, DANIELA (generalized anxiety dis order) F41.1 ; Severe episode of recurrent major depressive disorder, without psychotic features F33.2 ; Mixed obsessional thoughts and acts F42.2 and 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 [id number] [id number] Dec, Morbid obesity E66.01 [facility] [address] [facility] [id number] [address] [place] [phone] Dec, [facility] [address] [facility] [id number] [address] [place] [phone] Dec, [address] [phone] Nov, [facility] [id number][place] [id number] Nov, [facility] [address] [facility] [id number] [address] [place] [phone] Nov, [facility] [address] [facility] [id number] [address] [place] [phone] Nov, [facility] [address] [facility] [id number] [address] [place] [phone] Nov, DANIELA (generalized anxiety dis order) F41.1 ; Severe episode of recurrent major depressive disorder, without psychotic features F33.2 ; Mixed obsessional thoughts and acts F42.2 and 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 [facility] [address] [id number] [place] [id number] Nov, Morbid obesity E66.01 [facility] [address] [facility] [id number] [address] [place] [phone] Nov, [facility] [address] [facility] [id number] [address] [place] [phone] Nov, DANIELA (generalized anxiety dis order) F41.1 ; Mixed obsessional thoughts and acts F42.2 ; Severe episode of recurrent major depressive disorder, without psychotic features F33.2 and 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 [facility] [address] [address] [id number], [place] [id number] October, Morbid obesity E66.01 [facility] [id number] [place] [address] [id number] October, Benign essential hypertension I10 and Mo rbid obesity E66.01 [facility] [address] [id number], [place] [id number] October, [facility] [address] [facility] [id number] [address] [place] [phone] October, Severe episode of recurrent major depressive disorder, without psychotic features F33.2 [facility] [address] [id number], [place] [id number] October, Morbid obesity E66.01 [facility] [address] [id number], [place] [id number] October, [facility] [address] [facility] [id number] [address] [place] [phone] October, Severe episode of recurrent major depressive disorder, without psychotic features F33.2 ; DANIELA (generalized anxiety disorder) F41.1 ; Mixed obsessional thoughts and acts F42.2 and Dependent personality disorder F60.[address] [id number], [place] [id number] October, Morbid obesity E66.01 [facility] [address] [place] [id number] [address] [place] [id number] Sep, Dental examination Z01.[address] [id number], [place] [id number] Sep, [facility] [address] [place] [phone] Sep, Sore in mouth K13.79 and Mor bid obesity E66.01 [facility] [address] [place] [id number] [address] [place] [phone] Sep, Dental examination Z01.20 [facility] [address] [place] [phone] Sep, Anxiety disorder, unspecifie d F41.[address] [id number], [place] [id number] Sep, Mouth ulcer K12.[address] [id number], [place] [id number] Sep, Morbid obesity E66.[address] [id number] [place] [address] [id number] Sep, Allergic rhinitis, unspecified seasonali ty, unspecified trigger J30.9 and Shortness of breath R06.[address] [id number] [place] [address] [id number] Sep, 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 [id number], [place] [id number] Aug, Mouth abscess K12.2 ; Mouth ulcer K12.1 ; Bloating R14.0 and Morbid obesity E66.01 [facility] [address] [id number], [place] [id number] Aug, [facility] [address] [id number], [place] [id number] Aug, [facility] [address] [place] [address] AVE [id number], [place] [id number] Jul, Major depressive disorder, recurrent, mo derate F33.1 ; Abscess of arm, left L02.414 ; BMI 45.0-49.9, adult Z68.42 and Morbid obesity E66.01 [facility] [address] [id number], [place] [id number] Jul, [facility] [address] [place] [address] AVE [id number], [place] [id number] Jul, [facility] [address] [address] [place] [address] AVE [id number], [place] [id number] Jun, Pain in right knee M25.561 and Other chr onic pain G89.29 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 ; Edema R60.9 ; Recurrent major depressive disorder, in partial remission F33.41 ; Chronic fatigue R53.82 ; Acute pain of right knee M25.561 ; Metabolic syndrome E88.81 and Irritable mood R45.4 [facility] [address] [facility] [id number] [address] [place] [phone] Jun, [facility] [address] [place] [address] A[address] [id number], [place] [id number] Jun, Irritable mood R45.4 [facility] [address] [facility] [id number] [address] [place] [phone] May, [facility] [address] [facility] [id number] [address] [place] [phone] May, [facility] [address] [facility] [id number] [address] [place] [phone] May, Recurrent major depressive d isorder, in partial remission F33.41 ; Mixed obsessional thoughts and acts F42.2 ; 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 and BMI 45.0-49.9, adult Z68.42 [facility] [address] [facility] [id number] [address] [place] [phone] Apr, [facility] [address] [facility] [id number] [address] [place] [phone] Apr, [place] [address] [place] [id number] [address] [place] [phone] Apr, [place] [address] [place] [id number] [address] [place] [phone] Apr, [place] [address] [place] [id number] [address] [place] [phone] Mar, Mixed obsessional thoughts a nd acts F42.2 ; Recurrent major depressive disorder, in partial remission F33.41 ; DANIELA (generalized anxiety disorder) F41.1 and BMI 45.0-49.9, adult Z68.[address] [place] [address] [id number], [place] [id number] Mar, [place] [address] [id number], [place] [id number] Mar, BMI 45.0-49.9, adult Z68.42 ; Instabilit y of right knee joint M25.361 and Rash R21 [place] [address] [facility] [id number] [address] [place] [phone] Jan, Recurrent major depressive d isorder, in partial remission F33.41 ; Mixed obsessional thoughts and acts F42.2 and BMI 45.0-49.9, adult Z68.[address] [place] [id number] [place] [id number] Jan, [facility] [address] [id number], [place] [id number] Jan, Benign essential hypertension I10 ; BMI 45.0-49.9, adult Z68.42 ; Metabolic syndrome E88.81 and Allergic rhinitis, unspecified seasonality, unspecified trigger J30.9 [facility] [address] [facility] [id number] [address] [place] [phone] Dec, DANIELA (generalized anxiety dis order) F41.1 and Depressive disorder, not elsewhere classified F32.9 [facility] [address] [id number], [place] [id number] Dec, Recurrent major depressive disorder, in partial remission F33.41 [facility] [address] [id number], [place] [id number] Dec, [facility] [address] [id number], [place] [id number] Nov, [facility] [address] [id number], [place] [id number] Nov, Recurrent major depressive disorder, in partial remission F33.41 [place] [address] [facility] [id number] [address] [place] [phone] Nov, Recurrent major depressive d isorder, in partial remission F33.41 ; Mixed obsessional thoughts and acts F42.2 ; DANIELA (generalized anxiety disorder) F41.1 and BMI 45.0-49.9, adult Z68.42 [facility] [address] [id number], [place] [id number] Nov, [facility] [address] [id number], [place] [id number] Nov, Other conjunctivitis of both eyes H10.89 and Sciatica, right side M54.31 [facility] [address] [id number], [place] [id number] Nov, [facility] [address] [id number], [place] [id number] Nov, [facility] [address] [id number], [place] [id number] October, [facility] [address] [id number], [place] [id number] October, [facility] [address] [facility] [id number] [place] [address] October, BMI 45.0-49.9, adult Z68.42 ; Mixed obsessional thoughts and acts F42.2 ; Recurrent major depressive disorder, in partial remission F33.41 and DANIELA (generalized anxiety disorder) F41.1 [facility] [address] [id number], [place] [id number] October, Benign essential hypertension I10 ; Morb id obesity E66.01 and BMI 45.0-49.9, adult Z68.42 [facility] [address] [id number], [place] [id number] Sep, [facility] [address] [id number], [place] [id number] Sep, [facility] [address] [id number], [place] [id number] Sep, [facility] [address] [id number], [place] [id number] Sep, Hospital discharge follow-up Z09 ; Aller gic rhinitis, unspecified seasonality, unspecified trigger J30.9 and Shortness of breath R06.02 [facility] [address] [id number], [place] [id number] Sep, Recurrent major depressive disorder, in partial remission F33.41 [facility] [address] [id number], [place] [id number] Aug, Irritable mood R45.4 [facility] [address] [facility] [id number] [place] [address] Aug, [facility] [address] [id number], [place] [id number] Jul, Benign essential hypertension I10 ; Robert a R60.9 and Impacted cerumen of left ear H61.22 [place] [address] [facility] [id number] [address] [place] [phone] 14 Jul, 2017 Major depression F32.9 ; Rec urrent major depressive disorder, in partial remission F33.41 and Anxiety F41.9 [place] [address] [facility] [id number] [address] [place] [phone] Jun, Major depression F32.9 ; Rec urrent major depressive disorder, in partial remission F33.41 and Anxiety F41.9 [facility] [address] [id number], [place] [id number] Jun, Major depression F32.9 ; Morbid obesity E66.01 ; Irritable mood R45.4 ; Hand weakness R29.898 and Vitamin D deficiency E55.9 [facility] [address] [id number] [place] [address] [id number] Jun, [facility] [address] [id number] [place] [address] [id number] May, Major depression F32.9 [place] [address] [facility] [id number] [address] [place] [phone] May, Major depression F32.9 [facility] [id number] [place] [address] [id number] May, BMI 50.0-59.9, adult Z68.43 ; Major depr ession F32.9 ; Anxiety F41.9 ; Hypertrophic toenail L60.2 and Pain of left great toe M79.675 [facility] [address] [id number], [place] [id number] May, Recurrent major depressive disorder, in partial remission F33.41 [place] [address] [facility] [id number] [address] [place] [phone] Apr, [facility] [address] [address] [id number], [place] [id number] Apr, [facility] [address] [facility] [id number] [address] [place] [phone] Apr, Major depression F32.9 [facility] [address] [id number], [place] [id number] Apr, Severe episode of recurrent major depres sive disorder, without psychotic features F33.2 ; Anxiety F41.9 and Insomnia G47.00 [facility] [address] [id number], [place] [id number] Apr, [facility] [address] [facility] [id number] [address] [place] [phone] Apr, [facility] [address] [id number], [place] [id number] Apr, [facility] [address] [id number], [place] [id number] Mar, [facility] [address] [id number], [place] [id number] Mar, Allergic conjunctivitis of both eyes H10 .13 [facility] [address] [facility] [id number] [address] [place] [address] Mar, Major depression F32.9 [facility] [address] [id number], [place] [id number] Mar, Metabolic syndrome E88.81 ; History of g astric bypass Z98.890 ; Benign essential hypertension I10 ; Allergic conjunctivitis of both eyes H10.13 and Morbid obesity E66.01 [facility] [address] [facility] [id number] [address] [place] [phone] Mar, Major depression F32.9 [facility] [address] [id number], [place] [id number] Feb, [facility] [address] [facility] [id number] [address] [place] [phone] Feb, Major depression F32.[address] [place] [address] [id number], [place] [id number] Feb, Subacute maxillary sinusitis J01.00 and Bronchitis J40 [facility] [address] [facility] [id number] [address] [place] [phone] Feb, Major depressive disorder, r ecurrent, moderate F33.1 [facility] [address] [id number], [place] [id number] Jan, [address] [id number] [place] [address] [id number] Jan, Acute non-recurrent maxillary sinusitis J01.00 and Skin tag L91.[address] [id number], [place] [id number] Jan, Cough R05 and Sinus congestion R09.[address] [id number], [place] [id number] Jan, [address] [id number] [place] [address] [id number] Jan, Benign essential hypertension I10 ; Hist ory of gastric bypass Z98.890 and Nausea and vomiting in adult R11.2 [place] [address] [facility] [id number] [address] [place] [phone] Jan, Major depressive disorder, r ecurrent, moderate F33.1 [facility] [address] [facility] [id number] [address] [place] [id number] Dec, Insomnia G47.00 ; Recurrent major depressive disorder, in partial remission F33.41 and Morbid obesity E66.01 [facility] [address] [id number], [place] [id number] Dec, [facility] [address] [id number], [place] [id number] Dec, Chronic bacterial conjunctivitis of left eye H10.402 [facility] [id number] [place] [address] [id number] Nov, [address] [id number], [place] [id number] Nov, Dental examination Z01.[address] [id number], [place] [id number] 23 Nov, 2016 Benign essential hypertension I10 ; Hist ory of gastric bypass Z98.890 and Nausea and vomiting in adult R11.2 [place] [address] [place] [phone] 13 Nov, 2016 Major depressive disorder, r ecurrent, moderate F33.1 ; Generalized anxiety disorder F41.1 and Insomnia due to other mental disorder F51.05 [place] [address] [place] [id number] [place] [phone] 12 Nov, 2016 Recurrent major depressive d isorder, in partial remission F33.41 ; Insomnia G47.00 and Morbid obesity E66.01 [facility] [address] [place] [id number] [facility] [id number] October, Abscess of left arm L02.414 [place] [id number] [place] [address] October, Morbid obesity E66.01 ; Lida r depression F32.9 and Recurrent major depressive disorder, in partial remission F33.[address] [id number] [id number] Sep, Benign essential hypertension I10 ; Morb id obesity E66.01 ; S/P gastric bypass Z98.84 ; Abscess L02.91 and Chronic bacterial conjunctivitis of left eye H10.[id number] [place] [address] [id number] Sep, Dental examination Z01.20 [facility] [address] [facility] [id number] [address] [place] [id number] Sep, Morbid obesity E66.01 ; Lida r depression F32.9 and Recurrent major depressive disorder, in partial remission F33.41 [place] [id number] [facility] [id number] [address] [place] [id number] Jul, [place] [id number] [facility] [id number] [address] [place] [phone] Jul, Major depressive disorder, r ecurrent, moderate F33.1 [place] [address] [facility] [id number] [address] [place] [id number] Jul, Major depressive disorder, r ecurrent, moderate F33.1 and Generalized anxiety disorder F41.[address] [facility] [address] [id number] [id number] Jul, Cough R05 [place] [address] [address] [facility] [id number] [address] [place] [phone] Jul, Morbid obesity E66.01 ; Lida r depression F32.9 and Recurrent major depressive disorder, in partial remission F33.41 [facility] [id number] [place] [id number] Jul, [facility] [id number] [place] [id number] Jul, [place] [id number] [place] [id number] Jul, Gastroenteritis K52.9 and Cough R[address] [id number] [id number] [place] [id number] Jun, Acute bacterial conjunctivitis of left e ye H10.32 [place] [address] [facility] [id number] [address] [place] [phone] Jun, [place] [address] [address] [facility] [id number] [address] [place] [phone] Jun, Recurrent major depressive d isorder, in partial remission F33.41 [place] [id number] [facility] [id number] [address] [place] [phone] May, Major depression F32.9 and M orbid obesity E66.01 [facility] [address] [facility] [id number] [address] [place] [address] May, [facility] [id number] [place] [address] [id number] May, Thrush B37.0 [facility] [address] [facility] [id number] [address] [place] [phone] Apr, Major depressive disorder, r ecurrent, moderate F33.1 [facility] [address] [facility] [id number] [address] [place] [address] Apr, Insomnia G47.00 ; Major depr ession F32.9 and Recurrent major depressive disorder, in partial remission F33.41 [place] [address] [facility] [id number] [address] [place] [phone] Apr, [place] [address] [facility] [id number] [address] [place] [phone] 02 Apr, 2016 Major depression F32.9 and R ecurrent major depressive disorder, in partial remission F33.[address] [id number] [id number] Mar, Benign essential hypertension I10 ; Morb id obesity E66.01 ; Impacted cerumen of both ears H61.23 ; Laceration of finger of right hand, initial encounter S61.219A and Encounter for immunization Z23 [facility] [address] [facility] [id number] [address] [place] [id number] 17 Mar, 2016 [facility] [address] [facility] [id number] [address] [place] [phone] Mar, [place] [address] [facility] [id number] [address] [place] [phone] Mar, [address] [id number][place] [id number] Feb, Nausea R11.0 ; Blood in the stool K92.1 and Benign essential hypertension I10 [place] [address] [facility] [id number] [address] [place] [phone] Feb, Major depression F32.9 and R ecurrent major depressive disorder, in partial remission F33.[address] [facility] [address] [id number] [id number] Feb, [facility] [address] [id number][place] [id number] Feb, Recurrent major depressive disorder, in partial remission F33.[address] [facility] [address] [id number] [id number] Jan, [facility] [address] [id number][place] [id number] Jan, Benign essential hypertension I10 ; Robert a R60.9 and Hyperlipidemia, unspecified hyperlipidemia type E78.5 [facility] [address] [id number][place] [id number] Jan, Recurrent major depressive disorder, in partial remission F33.41 [facility] [place] [address] [id number] [place] [id number] Jan, [facility] [address] [id number][place] [id number] Jan, [facility] [address] [id number] [id number] Jan, [facility] [address] [facility] [id number] [address] [place] [id number] Jan, [facility] [address] [facility] [id number] [address] [place] [phone] Dec, [facility] [address] [facility] [id number] [address] [place] [phone] Nov, [facility] [address] [facility] [id number] [address] [place] [phone] Nov, Major depression F32.9 [facility] [address] [facility] [id number] [address] [place] [phone] Nov, [facility] [address] [facility] [id number] [address] [place] [phone] Nov, [place] [address] [facility] [id number] [address] [place] [phone] Nov, Major depressive disorder, r ecurrent episode, mild F33.0 and Anxiety F41.9 [facility] [address] [id number][place] [id number] Nov, [facility] [id number] [place] [address] [id number] October, Left elbow pain M25.522 and Other season al allergic rhinitis J30.2 [facility] [id number] [place] [address] [id number] October, [place] [address] [facility] [id number] [address] [place] [phone] October, Major depressive disorder, r ecurrent, moderate F33.1 [place] [address] [facility] [id number] [address] [place] [phone] October, Major depression F32.9 [place] [address] [facility] [id number] [address] [place] [phone] Sep, Miracle or callus L84 and Onych omycosis B35.1 [place] [address] [place] [id number] [address] [place] [phone] Sep, Major depressive disorder, r ecurrent, moderate F33.1 [place] [id number] [facility] [id number] [address] [place] [phone] Sep, Major depression F32.9 [place] [address] [facility] [id number] [address] [place] [phone] Sep, Moderate episode of recurren t major depressive disorder F33.1 [facility] [address] [id number] [id number] Sep, Muscle strain T14.8 [place] [address] [facility] [id number] [address] [place] [phone] Aug, Major depression F32.9 [facility] [address] [facility] [id number] [address] [place] [phone] Aug, Major depression F32.9 [facility] [address] [facility] [id number] [address] [place] [phone] Jul, Morbid obesity E66.01 and Ma cora depression F32.9 [facility] [address] [facility] [id number] [address] [place] [phone] Jul, Depression, major, recurrent , moderate F33.1 [facility] [address] [place] [address] AVE [id number] [place] [address] [id number] Jul, [facility] [address] [facility] [id number] [address] [place] [phone] Jul, [facility] [address] [place] [id number] [address] [place] [phone] Jul, Major depression F32.9 and M orbid obesity E66.[id number] [place] [address] [id number] Jul, Type II diabetes mellitus E11.9 ; Callus of foot L84 ; Benign essential hypertension I10 and Renal insufficiency N28.9 [facility] [address] [facility] [id number] [address] [place] [phone] Jul, Depression, major, recurrent , moderate F33.1 [facility] [address] [facility] [id number] [address] [place] [phone] Jul, Major depression F32.9 [facility] [address] [facility] [id number] [address] [place] [phone] Jul, [facility] [address] [facility] [id number] [address] [place] [phone] Jun, Major depression F32.9 [facility] [address] [place] [id number] [address] [place], [place] [id number] Jun, Major depressive disorder, r ecurrent, moderate F33.1 [place] [address] [place] [id number] [address] [place] [address] Jun, [place] [address] [place] [id number] [address] [place], [place] [id number] Jun, Major depressive disorder, r ecurrent, moderate F33.1 and Major depression F32.[id number] [place] [address] [id number] Jun, Type II diabetes mellitus E11.9 [place] [address] Jun, Depression, major, recurrent , moderate F33.1 [place] [address] [place] [id number] [address] [place] [phone] May, Major depressive disorder, r ecurrent, moderate F33.1 [place] [address] [place] [id number] [address] [place], [place] [id number] May, [id number] [place] [address] [id number] May, Edema R60.9 [place] [address] [place] [id number] [address] [place] [phone] 17 May, 2015 Insomnia G47.00 and Major de pression F32.[address] [place] [id number] [place] [address] [id number] 15 May, 2015 Morbid obesity E66.01 ; Edema R60.9 ; Sh ortness of breath R06.02 ; Benign essential hypertension I10 and Renal insufficiency N28.[address] [place] [id number] [place] [address] [id number] 14 May, 2015 Hyperlipemia 272.4 and Renal insufficien cy N28.9 [place] [address] [place] [id number] [address] [place] [phone] Apr, Major depression F32.9 [place] [id number] [facility] [id number] [address] [place] [phone] Apr, [place] [address] [facility] [id number] [address] [place] [phone] Apr, Major depressive disorder, r ecurrent, moderate F33.1 [facility] [address] [id number] [id number] Apr, Type II diabetes mellitus E11.9 ; Benign essential hypertension I10 ; Edema R60.9 and Renal insufficiency N28.9 [place] [address] [facility] [id number] [address] [place] [phone] Mar, Major depressive disorder, r ecurrent, moderate F33.1 [place] [address] [facility] [id number] [address] [place] [phone] Mar, [place] [address] [facility] [id number] [address] [place] [phone] Mar, Major depression F32.9 [facility] [id number] [place] [address] [id number] Mar, Morbid obesity E66.01 ; Benign essential hypertension I10 and Type II diabetes mellitus E11.9 [place] [address] [facility] [id number] [address] [place] [id number] Feb, Major depressive disorder, r ecurrent, moderate F33.1 [place] [address] [facility] [id number] [address] [place] [phone] Feb, Major depressive disorder, r ecurrent episode, in partial or unspecified remission 296.35 ; Anxiety state, unspecified 300.00 and Morbid obesity 278.01 [place] [address] [facility] [id number] [address] [place] [phone] Feb, [facility] [address] [id number] [id number] Feb, Vomiting 787.03 and Viral syndrome 079.9 9 [place] [address] [facility] [id number] [address] [place] [phone] 15 Feb, 2015 Major depression, recurrent 296.30 ; Generalized anxiety disorder 300.02 and No condition on [place] II V71.09 [facility] [address] [place] [address] AVE [id number] [id number] Feb, Skin tag 701.9 [facility] [address] [facility] [id number] [address] [place] [phone] Feb, [facility] [address] [place] [id number] [address] [place] [id number] Jan, Depression, major, recurrent , moderate 296.[address] [id number] [place] [address] [id number] Jan, Nausea and vomiting 787.01 ; Rib pain on right side 786.50 and Fall on or from sidewalk curb E880.1 [facility] [address] [place] [id number] [address] [place] [phone] Jan, [facility] [address] [place] [id number] [address] [place] [id number] Jan, Major depressive disorder, r ecurrent episode, in partial or unspecified remission 296.35 and Anxiety state, unspecified 300.00 [facility] [address] [place], [place] [address] [id number][place] [id number] Jan, [facility] [address] [facility] [id number] [address] [place] [id number] Jan, Depression, major, recurrent , moderate 296.32 [facility] [address] [facility] [id number] [address] [place] [phone] Jan, Major depression, recurrent 296.30 ; No condition on [place] II V71.09 and No condition on axis III V71.09 [facility] [address] [place], [place] [address] [id number] [id number] Jan, Drug-induced nausea and vomiting 787.01 [facility] [address] [facility] [id number] [address] [place] [id number] Jan, Depression, major, recurrent , moderate 296.32 [facility] [address] [facility] [id number] [address] [place] [address] Dec, Depression, major, recurrent , moderate 296.32 [facility] [id number] [place] [address] [id number] Dec, Morbid obesity 278.01 ; Metabolic syndro me 277.7 ; Hyperlipemia 272.4 ; Benign essential hypertension 401.1 ; Dietary counseling V65.3 ; Exercise counseling V65.41 and Inflamed skin tag 701.9 [place] [address] [address] Dec, Depression, major, recurrent , moderate 296.32 [place] [address] [address] Dec, [place] [address] [address] Dec, Major depression, recurrent 296.30 ; Anxiety, generalized 300.02 and No condition on [place] II V71.09 [place] [address] [id number] Dec, Depression, major, recurrent , moderate 296.32 [place] [address] [place] [id number] [address] [place] [phone] Dec, Major depressive disorder, r ecurrent episode, moderate 296.32 [place] [id number] [place] [address] Dec, Depression, major, recurrent , moderate 296.32 [place] [address] [place] [id number] [address] [place] [phone] Dec, Depression, major, recurrent , moderate 296.32 [place] [address] [place] [id number] [address] [place] [id number] Dec, Depression, major, recurrent , moderate 296.32 [place] [address] [address] Dec, Depression, major, recurrent , moderate 296.32 [facility] [address] [address] Nov, Depression, major, recurrent , moderate 296.32 [facility] [address] [address] Nov, Major depression 296.20 ; So cial phobia 300.23 and No condition on [place] II V71.09 [facility] [address] [address] Nov, Depression, major, recurrent , moderate 296.32 [place] [address] [address] Nov, Major depressive disorder, r ecurrent episode, moderate 296.32 and Generalized anxiety disorder 300.02 [facility] [address] [address] Nov, Depression, major, recurrent , moderate 296.32 [facility] [address] [address] Nov, Depression, major, recurrent , moderate 296.32 [facility] [address] [address] October, Generalized anxiety disorder 300.02 ; No condition on [place] II V71.09 and Major depressive disorder, recurrent 296.30 [facility] [address] [address] Sep, [facility] [address] [address] Sep, [facility] [address] [address] Aug, [facility] [address] [address] Aug, [facility] [address] [id number] [facility] [address] 23 Aug, 2014 [facility] [address] [id number] [address] [place] [address], [place] [address] 23 Aug, 2014 [facility] [address] [id number] [facility] [address] 20 Aug, 2014 [facility] [address] [id number] [address] [place] [address], [place] [address] 20 Aug, 2014 [facility] [address] [id number] [address] [place] [address], [place] [address] 20 Aug, 2014 [facility] [address] [id number] [address] [place] [address], [place] [address] 20 Aug, 2014 [facility] [address] [id number] [address] [place] [address], [place] [address] 13 Aug, 2014 [facility] [address] [id number] [address] [place] [address], [place] [address] 13 Aug, 2014 [facility] [address] [id number] [address] [place] [address], [place] [address] 13 Aug, 2014 [facility] [address] [id number] [address] [place] [address], [place] [address] 13 Aug, 2014 [facility] [address] [id number] [address] [place] [address], [place] [address] 12 Aug, 2014 [facility] [address] [id number] [address] [place] [address], [place] [address] 12 Aug, 2014 [facility] [address] [id number] [address] [place] [address], [place] [address] 10 Aug, 2014 [facility] [address] [id number] [address] [place] [address], [place] [address] 10 Aug, 2014 [facility] [address] [id number] [address] [place] [address], [place] [address] 09 Aug, 2014 [facility] [address] [id number] [address] [place] [address], [place] [address] Aug, [facility] [address] [id number] [address] [place] [address], [place] [address] Jul, [facility] [address] [id number] [address] [place] [address], [place] [address] Jul, [facility] [address] [id number] [address] [place] [address], [place] [address] Jul, [facility] [address] [id number] [address] [place] [address], [place] [address] Jul, [facility] [address] [id number] [address] [place] [address], [place] [address] Jul, [facility] [address] [id number] [address] [place] [address], [place] [address] Jul, [facility] [address] [id number] [address] [place] [address], [place] [address] Jun, [facility] [address] [id number] [address] [place] [address], [place] [address] Jun, [facility] [address] [id number] [address] [place] [address], [place] [address] Jun, [facility] [address] [id number] [address] [place] [address], [place] [address] Jun, [facility] [address] [id number] [address] [place] [address], [place] [address] Jun, [facility] [address] [id number] [address] [place] [address], [place] [address] Jun, [facility] [address] [id number] [address] [place] [address], [place] [address] Jun, [facility] [address] [id number] [address] [place] [address], [place] [address] Jun, [facility] [address] [id number] [address] [place] [address], [place] [address] Jun, [facility] [address] [id number] [address] [place] [address], [place] [address] Jun, [facility] [address] [id number] [address] [place] [address], [place] [address] Jun, [facility] [address] [id number] [address] [place] [address], [place] [address] Jun, [facility] [address] [id number] [id number] Jun, [facility] [address] [id number] [address] [place] [address], [place] [address] Jun, [facility] [address] [id number] [address] [place] [address], [place] [address] Jun, [facility] [address] [id number] [address] [place] [address], [place] [address] Jun, [facility] [address] [id number] [address] [place] [address], [place] [address] May, [facility] [address] [id number] [address] [place] [address], [place] [address] May, [facility] [address] [id number] [address] [place] [address], [place] [address] May, [facility] [address] [id number] [address] [place] [address], [place] [address] May, [facility] [address] [id number] [address] [place] [address], [place] [address] Apr, [facility] [address] [id number] [address] [place] [address], [place] [address] Apr, [facility] [address] [id number] [address] [place] [address], [place] [address] Apr, [facility] [address] [id number] [address] [place] [address], [place] [address] Apr, [facility] [address] [id number] [address] [place] [address], [place] [address] Apr, [facility] [address] [id number] [address] [place] [address], [place] [address] Apr, [facility] [address] [id number] [address] [place] [address], [place] [address] Apr, [facility] [address] [id number] [address] [place] [address], [place] [address] Apr, [facility] [address] [id number] [address] [place] [address], [place] [address] Apr, [facility] [address] [id number] [address] [place] [address], [place] [address] Apr, [facility] [address] [id number] [address] [place] [address], [place] [address] Apr, [facility] [address] [id number] [address] [place] [address], [place] [address] Apr, [facility] [address] [id number] [address] [place] [address], [place] [address] Apr, [facility] [address] [id number] [address] [place] [address], [place] [address] Apr, [facility] [address] [id number] [address] [place] [address], [place] [address] Apr, [facility] [address] [id number] [address] [place] [address], [place] [address] Apr, [facility] [address] [id number] [address] [place] [address], [place] [address] Apr, [facility] [address] [id number] [address] [place] [address], [place] [address] Apr, [facility] [address] [id number] [address] [place] [address], [place] [address] Apr, [facility] [address] [id number] [address] [place] [address], [place] [address] Apr, [facility] [address] [id number] [address] [place] [address], [place] [address] Mar, [facility] [address] [id number] [address] [place] [address], [place] [address] Mar, [facility] [address] [id number] [address] [place] [address], [place] [address] Mar, [facility] [address] [id number] [address] [place] [address], [place] [address] Mar, [facility] [address] [id number] [address] [place] [address], [place] [address] Mar, [facility] [address] [id number] [address] [place] [address], [place] [address] Mar, [facility] [address] [id number] [address] [place] [address], [place] [address] Mar, [facility] [address] [id number] [address] [place] [address], [place] [address] Mar, [facility] [address] [id number] [address] [place] [address], [place] [address] Mar, [facility] [address] [id number] [address] [place] [address], [place] [address] Mar, [facility] [address] [id number] [address] [place] [address], [place] [address] Feb, [facility] [address] [id number] [address] [place] [address], [place] [address] Feb, [facility] [address] [id number] [address] [place] [id number] Feb, [facility] [address] [id number] [address] [place] [address], [place] [address] Feb, [facility] [address] [id number] [address] [place] [address], [place] [address] Jan, [facility] [address] [id number] [address] [place] [address], [place] [address] Jan, [facility] [address] [id number] [facility] [address] Jan, [facility] [address] [id number] [address] [place] [address], [place] [address] Jan, [facility] [address] [id number] [address] [place] [address], [place] [address] Jan, [facility] [address] [id number] [address] [place] [address], [place] [address] Jan, [facility] [address] [id number] [address] [place] [address], [place] [address] Dec, [facility] [address] [id number] [address] [place] [address], [place] [address] Dec, [facility] [address] [id number] [address] [place] [address], [place] [address] Nov, [facility] [address] [id number] [address] [place] [address], [place] [address] Nov, [facility] [address] [id number] [address] [place] [address], [place] [address] Nov, [facility] [address] [id number] [address] [place] [address], [place] [address] Nov, [facility] [address] [id number] [address] [place] [address], [place] [address] Nov, [facility] [address] [id number] [address] [place] [address], [place] [address] Nov, [facility] [address] [id number] [address] [place] [address], [place] [address] Sep, [facility] [address] [id number] [address] [place] [address], [place] [address] Sep, [facility] [address] [id number] [address] [place] [address], [place] [address] Sep, [facility] [address] [id number] [address] [place] [address], [place] [address] Sep, [facility] [address] [id number] [address] [place] [address], [place] [address] Aug, [facility] [address] [id number] [address] [place] [address], [place] [address] Aug, [facility] [address] [id number] [address] [place] [address], [place] [address] Jul, [facility] [address] [id number] [address] [place] [address], [place] [address] Jul, [facility] [address] [id number] [address] [place] [address], [place] [address] Jun, [facility] [address] [id number] [address] [place] [address], [place] [address] Jun, [facility] [address] [id number] [address] [place] [address], [place] [address] Jun, [facility] [address] [id number] [address] [place] [address], [place] [address] Jun, [facility] [address] [id number] [address] [place] [address], [place] [address] May, [facility] [address] [id number] [address] [place] [address], [place] [address] May, [facility] [address] [id number] [address] [place] [address], [place] [address] May, [facility] [address] [id number] [address] [place] [address], [place] [address] May, [facility] [address] [id number] [address] [place] [address], [place] [address] May, [facility] [address] [id number] [address] [place] [address], [place] [address] May, [facility] [address] [id number] [address] [place] [address], [place] [address] Apr, [facility] [address] [id number] [address] [place] [address] Apr, [facility] [address] [id number] [address] [place] [address], [place] [address] Apr, [facility] [address] [id number] [address] [place] [address], [place] [address] Apr, [facility] [address] [id number] [address] [place] [address], [place] [address] Mar, [facility] [address] [id number] [address] [place] [address], [place] [address] Mar, [facility] [address] [id number] [address] [place] [address], [place] [address] Mar, [facility] [address] [id number] [address] [place] [address], [place] [address] Mar, [facility] [address] [id number] [address] [place] [address], [place] [address] Feb, [facility] [address] [id number] [place] [id number] Jan, [facility] [address] [id number] [address] [place] [address], [place] [address] Jan, [facility] [address] [id number] [address] [place] [address] Dec, [facility] [address] [id number] [address] [place] [address] Dec, [facility] [address] [id number] [address] [place] [address] Dec, [facility] [address] [id number] [place] [id number] Dec, [facility] [address] [id number] [address] [place] [address] Nov, [facility] [address] [id number] [address] [place] [id number] 14 Nov, 2012 [facility] [address] [id number] [address] [place] [id number] 12 Nov, 2012 [facility] [address] [id number] [address] [place] [id number] Nov, [facility] [address] [id number] [address] [place] [address] Nov, [facility] [address] [id number] [address] [place] [id number] October, [facility] [address] [id number] [address] [place] [id number] October, [facility] [address] [id number] [address] [place] [phone] Aug, [facility] [address] [facility] [id number] [address] [place] [id number] 13 Nov, 2011 IMMUNIZATIONS No Known Immunizations SOCIAL HISTORY Never Assessed REASON FOR VISIT PLAN OF CARE VITAL SIGNS MEDICATIONS Unknown Medications RESULTS No Results PROCEDURES Procedure Date Ordered Result Body Site COMPREHENSIVE CARE MANAGEMENT May 19, 2014 INSTRUCTIONS MEDICATIONS ADMINISTERED No Known Medications [...] 03/2016 Hospitalization History gastric sleeve Hospitalization History [facility] ER Trouble with left shoulder blade 08/2017
--- OUTSIDE RECORDS SUMMARY | 2019-11-29 09:14 | XMS REPORT ---
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 Name Role Phone JOE CHRIS Unavailable PROBLEMS Type Condition ICD9-CM Code ITM10-IY Code Onset Dates Condition S tatus SNOMED Code Problem Insomnia G47.00 Active 278349931 Problem Benign essential hypertension I10 Active 2180908 Problem Hyperlipemia E78.5 Active 8545973 4 Problem Edema R60.9 Active 953345392 Problem Morbid obesity E66.01 Active 71929 6002 Problem Severe episode of recurrent major depressive disorder, without psychotic features F33.2 Active 57361817 Problem Vitamin D deficiency E55.9 Active 98239065 Problem Mixed obsessional thoughts and acts F42.2 Active 83003132 Problem Chronic fatigue R53.82 Active 8422 9001 Problem Metabolic syndrome E88.81 Active 2 94897746 Problem Other chronic pain G89.29 Active 8 9119866 Problem Renal insufficiency N28.9 Active 713946451 Problem BMI 45.0-49.9, adult Z68.42 Active 761388213 Problem DANIELA (generalized anxiety disorder) F41.1 Active 64555779 Problem Sciatica, right side M54.31 Active [id number] Problem 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 Active 96203958 ALLERGIES No Information ENCOUNTERS Encounter Location Date Diagnosis [facility] [address] [facility] [id number] [address] [place] [phone] Jan, [facility] [address] [facility] [id number] [place] [address] [id number] Jan, [facility] [address] [facility] [id number] [address] [place] [phone] Dec, [facility] [address] [facility] [id number] [address] [place] [phone] Dec, [facility] [address] [facility] [id number] [address] [place] [phone] Dec, [facility] [address] [facility] [id number] [address] [place] [phone] Dec, Severe episode of recurrent major depressive disorder, without psychotic features F33.2 [facility] [address] [facility] [id number] [address] [place] [phone] Dec, DANIELA (generalized anxiety dis order) F41.1 ; Severe episode of recurrent major depressive disorder, without psychotic features F33.2 ; Mixed obsessional thoughts and acts F42.2 and Dependent personality disorder F60.[address] [facility] [place] [address] [id number], [place] [id number] Dec, Morbid obesity E66.01 [facility] [address] [facility] [id number] [address] [place] [phone] Dec, [facility] [address] [facility] [id number] [address] [place] [phone] Dec, [address] [address] Nov, [facility] [place] [address] [id number], [place] [id number] Nov, [facility] [address] [facility] [id number] [address] [place] [phone] Nov, [facility] [address] [facility] [id number] [address] [place] [phone] Nov, [facility] [address] [facility] [id number] [address] [place] [phone] Nov, DANIELA (generalized anxiety dis order) F41.1 ; Severe episode of recurrent major depressive disorder, without psychotic features F33.2 ; Mixed obsessional thoughts and acts F42.2 and Dependent personality disorder F60.[address] 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 [place] [address] [id number], [place] [id number] October, Morbid obesity E66.[address] [facility] [address] [id number], [place] [id number] October, Benign essential hypertension I10 and Mo rbid obesity E66.[address] [facility] [address] [id number], [place] [id number] October, [facility] [address] [place] [id number] [address] [place] [phone] October, Severe episode of recurrent major depressive disorder, without psychotic features F33.[address] [facility] [address] [id number], [place] [id number] October, Morbid obesity E66.[address] [facility] [place] [address] [id number], [place] [id number] October, [facility] [address] [facility] [id number] [address] [place] [phone] October, Severe episode of recurrent major depressive disorder, without psychotic features F33.2 ; DANIELA (generalized anxiety disorder) F41.1 ; Mixed obsessional thoughts and acts F42.2 and Dependent personality disorder F60.[address] [facility] [address] [id number], [place] [id number] October, Morbid obesity E66.01 [facility] [address] [id number] [address] [place] [address] [id number] Sep, Dental examination Z01.[address] [facility] [place] [address] [id number], [place] [id number] Sep, [facility] [address] [facility] [id number] [address] [place] [phone] Sep, Sore in mouth K13.79 and Mor bid obesity E66.01 [facility] [address] [facility] [id number] [address] [place] [address] Sep, Dental examination Z01.20 [facility] [address] [facility] [id number] [address] [place] [address] Sep, Anxiety disorder, unspecifie d F41.[id number] [place] [address] [id number] Sep, Mouth ulcer K12.[address] [facility] [place] [id number] [place] [address] [id number] Sep, Morbid obesity E66.[address] [facility] [place] [id number] [place] [address] [id number] Sep, Allergic rhinitis, unspecified seasonali ty, unspecified trigger J30.9 and Shortness of breath R06.[address] [id number] [place] [address] [id number] Sep, 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 [facility] [place] [id number], [place] [id number] Aug, Mouth abscess K12.2 ; Mouth ulcer K12.1 ; Bloating R14.0 and Morbid obesity E66.[address] [facility] [place] [id number], [place] [id number] Aug, [facility] [place] [id number], [place] [id number] Aug, [facility] [place] [id number], [place] [id number] Jul, Major depressive disorder, recurrent, mo derate F33.1 ; Abscess of arm, left L02.414 ; BMI 45.0-49.9, adult Z68.42 and Morbid obesity E66.[address] [facility] [address] [id number], [place] [id number] Jul, [facility] [address] [id number], [place] [id number] Jul, [facility] [address] [id number], [place] [id number] Jun, Pain in right knee M25.561 and Other chr onic pain G89.29 [facility] [address] [id number], [place] [id number] Jun, Benign essential hypertension I10 ; BMI 45.0-49.9, adult Z68.42 ; Morbid obesity E66.01 ; Vitamin D deficiency E55.9 ; Insomnia G47.00 ; 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 ; Edema R60.9 ; Recurrent major depressive disorder, in partial remission F33.41 ; Chronic fatigue R53.82 ; Acute pain of right knee M25.561 ; Metabolic syndrome E88.81 and Irritable mood R45.4 [place] [address] [place] [id number] [address] [place] [phone] Jun, [facility] [address] [facility] [id number], [place] [id number] Jun, Irritable mood R45.4 [facility] [address] [place] [id number] [address] [place] [phone] May, [facility] [address] [place] [id number] [address] [place] [phone] May, [facility] [address] [place] [id number] [address] [place] [id number] May, Recurrent major depressive d isorder, in partial remission F33.41 ; Mixed obsessional thoughts and acts F42.2 ; 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 and BMI 45.0-49.9, adult Z68.42 [facility] [address] [place] [id number] [address] [place] [phone] Apr, [facility] [address] [facility] [id number] [address] [place] [phone] Apr, [facility] [address] [facility] [id number] [address] [place] [phone] Apr, [facility] [address] [facility] [id number] [address] [place] [phone] Apr, [facility] [address] [place] [id number] [address] [place] [phone] Mar, Mixed obsessional thoughts a nd acts F42.2 ; Recurrent major depressive disorder, in partial remission F33.41 ; DANIELA (generalized anxiety disorder) F41.1 and BMI 45.0-49.9, adult Z68.[address] [place] [id number] [place] [id number] Mar, [address] [id number] [place] [address] [id number] Mar, BMI 45.0-49.9, adult Z68.42 ; Instabilit y of right knee joint M25.361 and Rash R21 [place] [address] [place] [id number] [address] [place] [phone] Jan, Recurrent major depressive d isorder, in partial remission F33.41 ; Mixed obsessional thoughts and acts F42.2 and BMI 45.0-49.9, adult Z68.[address] [place] [id number] [place] [address] [id number] Jan, [place] [id number] [place] [address] [id number] Jan, Benign essential hypertension I10 ; BMI 45.0-49.9, adult Z68.42 ; Metabolic syndrome E88.81 and Allergic rhinitis, unspecified seasonality, unspecified trigger J30.9 [facility] [address] [facility] [id number] [address] [place] [phone] Dec, DANIELA (generalized anxiety dis order) F41.1 and Depressive disorder, not elsewhere classified F32.[address] [place] [address] [id number] [place] [facility] [id number] Dec, Recurrent major depressive disorder, in partial remission F33.[address] [place] [address] [id number] [place] [id number] Dec, [facility] [place] [address] [id number] [place] [id number] Nov, [facility] [address] [id number] [place] [facility] [id number] Nov, Recurrent major depressive disorder, in partial remission F33.41 [facility] [address] [facility] [id number] [address] [place] [phone] Nov, Recurrent major depressive d isorder, in partial remission F33.41 ; Mixed obsessional thoughts and acts F42.2 ; DANIELA (generalized anxiety disorder) F41.1 and BMI 45.0-49.9, adult Z68.42 [facility] [address] [address] [id number] [place] [facility] [id number] Nov, [facility] [address] [id number] [place] [facility] [id number] Nov, Other conjunctivitis of both eyes H10.89 and Sciatica, right side M54.31 [facility] [address] [id number] [place] [facility] [id number] Nov, [facility] [place] [address] [id number] [place] [facility] [id number] Nov, [facility] [address] [id number] [place] [id number] October, [facility] [address] [address] [id number] [place] [facility] [id number] October, [facility] [address] [facility] [id number] [address] [place] [phone] October, BMI 45.0-49.9, adult Z68.42 ; Mixed obsessional thoughts and acts F42.2 ; Recurrent major depressive disorder, in partial remission F33.41 and DANIELA (generalized anxiety disorder) F41.[address] [facility] [place] [id number] [place] [address] [id number] October, Benign essential hypertension I10 ; Morb id obesity E66.01 and BMI 45.0-49.9, adult Z68.[address] [facility] [place] [place] [address] [id number] Sep, [facility] [id number] [place] [address] [id number] Sep, [facility] [place] [place] [address] [id number] Sep, [facility] [place] AVSt[facility] [id number] [place] [address] [id number] Sep, Hospital discharge follow-up Z09 ; Aller gic rhinitis, unspecified seasonality, unspecified trigger J30.9 and Shortness of breath R06.[address] [facility] [place] [id number] [place] [address] [id number] Sep, Recurrent major depressive disorder, in partial remission F33.[address] [facility] [place] [id number] [place] [address] [id number] Aug, Irritable mood R45.4 [place] [address] [place] [id number] [address] [place] [phone] Aug, [facility] [place] [id number] [place] [address] [id number] Jul, Benign essential hypertension I10 ; Robert a R60.9 and Impacted cerumen of left ear H61.22 [place] [address] [phone] Jul, Major depression F32.9 ; Rec urrent major depressive disorder, in partial remission F33.41 and Anxiety F41.9 [place] [address] [phone] Jun, Major depression F32.9 ; Rec urrent major depressive disorder, in partial remission F33.41 and Anxiety F41.9 [facility] [address] [address] [id number], [place] [id number] Jun, Major depression F32.9 ; Morbid obesity E66.01 ; Irritable mood R45.4 ; Hand weakness R29.898 and Vitamin D deficiency E55.9 [facility] [place] [address] [id number], [place] [id number] Jun, [facility] [place] [address] [id number], [place] [id number] May, Major depression F32.9 [place] [address] [facility] [id number] [address] [place] [phone] May, Major depression F32.[address] [place] [id number] [place] [address] [id number] May, BMI 50.0-59.9, adult Z68.43 ; Major depr ession F32.9 ; Anxiety F41.9 ; Hypertrophic toenail L60.2 and Pain of left great toe M79.[address] [place] [id number] [place] [address] [id number] May, Recurrent major depressive disorder, in partial remission F33.41 [place] [address] [place] [id number] [address] [place] [phone] Apr, [facility] [id number] [place] [address] [id number] Apr, [facility] [address] [facility] [id number] [address] [place] [phone] Apr, Major depression F32.[address] [facility] [id number] [place] [address] [id number] Apr, Severe episode of recurrent major depres sive disorder, without psychotic features F33.2 ; Anxiety F41.9 and Insomnia G47.[address] [facility] [place] [address] [id number], [place] [id number] Apr, [facility] [address] [facility] [id number] [address] [place] [phone] Apr, [facility] [address] [address] [id number], [place] [id number] Apr, [facility] [address] [address] [id number], [place] [id number] Mar, [facility] [place] [address] [id number], [place] [id number] Mar, Allergic conjunctivitis of both eyes H10 .13 [facility] [address] [facility] [id number] [address] [place] [phone] Mar, Major depression F32.[address] [facility] [address] [id number], [place] [id number] Mar, Metabolic syndrome E88.81 ; History of g astric bypass Z98.890 ; Benign essential hypertension I10 ; Allergic conjunctivitis of both eyes H10.13 and Morbid obesity E66.01 [facility] [address] [facility] [id number] [address] [place] [address] Mar, Major depression F32.[address] [facility] [place] [address] [id number], [place] [id number] Feb, [facility] [address] [facility] [id number] [address] [place] [phone] Feb, Major depression F32.9 [facility] [address] [id number], [place] [id number] Feb, Subacute maxillary sinusitis J01.00 and Bronchitis J40 [facility] [address] [facility] [id number] [address] [place] [phone] 06 Feb, 2017 Major depressive disorder, r ecurrent, moderate F33.1 [facility] [address] [id number], [place] [id number] Jan, [facility] [place] [address] [id number], [place] [id number] Jan, Acute non-recurrent maxillary sinusitis J01.00 and Skin tag L91.8 [facility] [address] [id number], [place] [id number] Jan, Cough R05 and Sinus congestion R09.81 [facility] [place] [address] [place] [address] AVE [id number], [place] [id number] Jan, [facility] [place] [address] [place] [address] AVE [id number], [place] [id number] Jan, Benign essential hypertension I10 ; Hist ory of gastric bypass Z98.890 and Nausea and vomiting in adult R11.2 [place] [address] [place] [id number] [address] [place] [phone] 04 Jan, 2017 Major depressive disorder, r ecurrent, moderate F33.1 [place] [address] [place] [id number] [address] [place] [phone] 12 Dec, 2016 Insomnia G47.00 ; Recurrent major depressive disorder, in partial remission F33.41 and Morbid obesity E66.01 [facility] [place] [address] [place] [address] AVE [id number], [place] [id number] Dec, [facility] [address] [id number], [place] [id number] Dec, Chronic bacterial conjunctivitis of left eye H10.402 [facility] [address] [place] [address] A[place] [id number], [place] [id number] Nov, [facility] [id number] [place] [address] [id number] Nov, Dental examination Z01.[address] [facility] [place] [address] [place] [address] [id number] [place] [address] [id number] Nov, Benign essential hypertension I10 ; Hist ory of gastric bypass Z98.890 and Nausea and vomiting in adult R11.2 [place] [address] [place] [id number] [address] [place] [phone] Nov, Major depressive disorder, r ecurrent, moderate F33.1 ; Generalized anxiety disorder F41.1 and Insomnia due to other mental disorder F51.05 [place] [address] [facility] [id number] [address] [place] [phone] Nov, Recurrent major depressive d isorder, in partial remission F33.41 ; Insomnia G47.00 and Morbid obesity E66.01 [facility] [address] [id number] [place] [id number] October, Abscess of left arm L02.414 [place] [address] [facility] [id number] [address] [place] [phone] October, Morbid obesity E66.01 ; Lida r depression F32.9 and Recurrent major depressive disorder, in partial remission F33.[address] [id number], [place] [id number] Sep, Benign essential hypertension I10 ; Morb id obesity E66.01 ; S/P gastric bypass Z98.84 ; Abscess L02.91 and Chronic bacterial conjunctivitis of left eye H10.[address] [id number] [place] [address] [id number] Sep, Dental examination Z01.20 [place] [address] [facility] [id number] [address] [place] [phone] Sep, Morbid obesity E66.01 ; Lida r depression F32.9 and Recurrent major depressive disorder, in partial remission F33.41 [place] [address] [facility] [id number] [address] [place] [phone] Jul, [place] [address] [facility] [id number] [address] [place] [phone] Jul, Major depressive disorder, r ecurrent, moderate F33.1 [place] [address] [facility] [id number] [address] [place] [phone] Jul, Major depressive disorder, r ecurrent, moderate F33.1 and Generalized anxiety disorder F41.[address] [id number], [place] [id number] Jul, Cough R05 [facility] [address] [facility] [id number] [address] [place] [phone] Jul, Morbid obesity E66.01 ; Lida r depression F32.9 and Recurrent major depressive disorder, in partial remission F33.[address] [facility] [address] [id number], [place] [id number] Jul, [facility] [place] [id number] [place] [address] [id number] Jul, [facility] [place] [address] [id number] [place] [address] [id number] Jul, Gastroenteritis K52.9 and Cough R05 [address] [id number] [place] [address] [id number] Jun, Acute bacterial conjunctivitis of left e ye H10.32 [place] [address] [facility] [id number] [address] [place] [phone] Jun, [place] [address] [facility] [id number] [address] [place] [phone] Jun, Recurrent major depressive d isorder, in partial remission F33.41 [place] [address] [address] [place] [id number] [address] [place] [phone] May, Major depression F32.9 and M orbid obesity E66.01 [facility] [address] [facility] [id number] [address] [place] [phone] May, [facility] [id number] [place] [id number] May, Thrush B37.0 [place] [address] [address] [place] [id number] [address] [place] [phone] Apr, Major depressive disorder, r ecurrent, moderate F33.1 [place] [id number] [place] [phone] 15 Apr, 2016 Insomnia G47.00 ; Major depr ession F32.9 and Recurrent major depressive disorder, in partial remission F33.41 [place] [address] [facility] [id number] [address] [place] [phone] Apr, [facility] [address] [facility] [id number] [address] [place] [phone] Apr, Major depression F32.9 and R ecurrent major depressive disorder, in partial remission F33.[address] [facility] [address] [id number] [id number] Mar, Benign essential hypertension I10 ; Morb id obesity E66.01 ; Impacted cerumen of both ears H61.23 ; Laceration of finger of right hand, initial encounter S61.219A and Encounter for immunization Z23 [place] [address] [address] [facility] [place] [id number] [address] [place] [address] 17 Mar, 2016 [place] [address] [facility] [place] [id number] [address] [place] [address] Mar, [place] [address] [facility] [place] [id number] [address] [place] [address] Mar, [address] [id number][place] [id number] Feb, Nausea R11.0 ; Blood in the stool K92.1 and Benign essential hypertension I10 [place] [address] N [facility] [place] [id number] [address] [place] [address] Feb, Major depression F32.9 and R ecurrent major depressive disorder, in partial remission F33.[address] [facility] [address] [id number][place] [id number] Feb, [place] [address] [id number][place] [id number] Feb, Recurrent major depressive disorder, in partial remission F33.[address] [facility] [address] [id number][place] [id number] Jan, [facility] [address] [id number], [place] [id number] Jan, Benign essential hypertension I10 ; Robert a R60.9 and Hyperlipidemia, unspecified hyperlipidemia type E78.5 [facility] [address] [id number], [place] [id number] Jan, Recurrent major depressive disorder, in partial remission F33.41 [facility] [place] [address] [id number] [place] [id number] Jan, [facility] [address] [id number][place] [id number] Jan, [facility] [address] [id number][place] [id number] Jan, [facility] [address] [facility] [place] [id number] [address] [place] [address] Jan, [facility] [address] [facility] [place] [id number] [address] [place] [address] Dec, [facility] [address] [facility] [place] [id number] [address] [place] [address] Nov, [facility] [address] [facility] [place] [id number] [address] [place] [address] Nov, Major depression F32.9 [facility] [address] [facility] [place] [id number] [address] [place] [address] Nov, [facility] [address] [facility] [place] [id number] [address] [place] [address] Nov, [facility] [address] [facility] [place] [id number] [address] [place] [address] Nov, Major depressive disorder, r ecurrent episode, mild F33.0 and Anxiety F41.9 [facility] [address] [id number], [place] [id number] Nov, [facility] [address] [id number], [place] [id number] October, Left elbow pain M25.522 and Other season al allergic rhinitis J30.[address] [facility] [address] [id number], [place] [id number] October, [facility] [address] [facility] [place] [id number] [address] [place] [address] October, Major depressive disorder, r ecurrent, moderate F33.1 [facility] [address] [facility] [place] [id number] [address] [place] [address] October, Major depression F32.9 [facility] [address] [facility] [place] [id number] [address] [place] [address] Sep, Deaver or callus L84 and Onych omycosis B35.1 [facility] [address] [facility] [place] [id number] [address] [place] [address] Sep, Major depressive disorder, r ecurrent, moderate F33.1 [facility] [address] [facility] [place] [id number] [address] [place] [address] Sep, Major depression F32.9 [facility] [address] [facility] [place] [id number] [address] [place] [address] Sep, Moderate episode of recurren t major depressive disorder F33.1 [facility] [address] [facility] [address] [id number][place] [id number] Sep, Muscle strain T14.8 [facility] [address] [facility] [place] [id number] [address] [place] [address] Aug, Major depression F32.9 [facility] [address] [facility] [place] [id number] [address] [place] [address] Aug, Major depression F32.9 [facility] [address] [facility] [place] [id number] [address] [place] [address] Jul, Morbid obesity E66.01 and Ma cora depression F32.9 [facility] [address] [facility] [place] [id number] [address] [place] [address] Jul, Depression, major, recurrent , moderate F33.[address] [id number], [place] [id number] Jul, [facility] [address] [facility] [place] [id number] [address] [place] [address] Jul, [facility] [address] [facility] [place] [id number] [address] [place] [address] Jul, Major depression F32.9 and M orbid obesity E66.[address] [id number], [place] [id number] Jul, Type II diabetes mellitus E11.9 ; Callus of foot L84 ; Benign essential hypertension I10 and Renal insufficiency N28.9 [facility] [address] [place] [id number] [address] [place] [address] Jul, Depression, major, recurrent , moderate F33.1 [facility] [address] [place] [id number] [address] [place] [id number] 05 Jul, 2015 Major depression F32.9 [facility] [address] [place] [id number] [address] [place] [address] Jul, [facility] [address] [place] [id number] [address] [place] [address] Jun, Major depression F32.9 [facility] [address] [place] [id number] [address] [place] [address] Jun, Major depressive disorder, r ecurrent, moderate F33.1 [facility] [address] [facility] [place] [id number] [address] [place] [address] Jun, [place] [address] [place] [id number] [address] [place] [address] Jun, Major depressive disorder, r ecurrent, moderate F33.1 and Major depression F32.[address] [id number], [place] [id number] Jun, Type II diabetes mellitus E11.9 [place] [address] [facility] [place] [id number] [address] [place] [address] Jun, Depression, major, recurrent , moderate F33.1 [place] [address] [facility] [place] [id number] [address] [place] [address] May, Major depressive disorder, r ecurrent, moderate F33.1 [place] [address] [facility] [place] [id number] [address] [place] [address] May, [place] [id number] [place] [address] [id number] May, Edema R60.9 [place] [address] [facility] [place] [id number] [address] [place] [address] May, Insomnia G47.00 and Major de pression F32.[address] [place] [id number] [place] [id number] May, Morbid obesity E66.01 ; Edema R60.9 ; Sh ortness of breath R06.02 ; Benign essential hypertension I10 and Renal insufficiency N28.[address] [place] [id number] [place] [address] [id number] May, Hyperlipemia 272.4 and Renal insufficien cy N28.9 [place] [address] [facility] [place] [id number] [address] [place] [address] Apr, Major depression F32.9 [place] [address] [facility] [place] [id number] [address] [place] [address] Apr, [place] [address] [facility] [place] [id number] [address] [place] [address] Apr, Major depressive disorder, r ecurrent, moderate F33.[address] [place] [address] [id number][place] [id number] Apr, Type II diabetes mellitus E11.9 ; Benign essential hypertension I10 ; Edema R60.9 and Renal insufficiency N28.9 [place] [address] [facility] [place] [id number] [address] [place] [address] Mar, Major depressive disorder, r ecurrent, moderate F33.1 [place] [address] [facility] [place] [id number] [address] [place] [address] Mar, [facility] [address] [place] [id number] [address] [place] [address] Mar, Major depression F32.[address] [facility] [id number] [place] [address] [id number] Mar, Morbid obesity E66.01 ; Benign essential hypertension I10 and Type II diabetes mellitus E11.9 [place] [address] [place] [id number] [address] [place] [address] Feb, Major depressive disorder, r ecurrent, moderate F33.1 [place] [address] [place] [id number] [address] [place] [address] Feb, Major depressive disorder, r ecurrent episode, in partial or unspecified remission 296.35 ; Anxiety state, unspecified 300.00 and Morbid obesity 278.01 [place] [address] [place] [id number] [address] [place] [address] Feb, [place] [id number] [place] [address] [id number] Feb, Vomiting 787.03 and Viral syndrome 079.9 9 [place] [address] [place] [id number] [address] [place] [address] 15 Feb, 2015 Major depression, recurrent 296.30 ; Generalized anxiety disorder 300.02 and No condition on Robins II V71.[address] [facility] [id number] [place] [address] [id number] Feb, Skin tag 701.9 [place] [address] [facility] [place] [id number] [address] [place] [address] Feb, [place] [address] [place] [id number] [address] [place] [address] Jan, Depression, major, recurrent , moderate 296.[address] [id number], [place] [id number] Jan, Nausea and vomiting 787.01 ; Rib pain on right side 786.50 and Fall on or from sidewalk curb E880.1 [facility] [address] [facility] [place] [id number] [address] [place] [address] Jan, [facility] [address] [place] [id number] [address] [place] [address] Jan, Major depressive disorder, r ecurrent episode, in partial or unspecified remission 296.35 and Anxiety state, unspecified 300.[address] [id number][place] [id number] Jan, [facility] [address] [facility] [place] [id number] [address] [place] [address] Jan, Depression, major, recurrent , moderate 296.32 [facility] [address] [facility] [place] [id number] [address] [place] [address] Jan, Major depression, recurrent 296.30 ; No condition on Robins II V71.09 and No condition on axis III V71.[address] [id number], [place] [id number] Jan, Drug-induced nausea and vomiting 787.01 [facility] [address] [facility] [place] [id number] [address] [place] [address] Jan, Depression, major, recurrent , moderate 296.32 [place] [address] [facility] [place] [id number] [address] [place] [address] Dec, Depression, major, recurrent , moderate 296.[address] [id number], [place] [id number] Dec, Morbid obesity 278.01 ; Metabolic syndro me 277.7 ; Hyperlipemia 272.4 ; Benign essential hypertension 401.1 ; Dietary counseling V65.3 ; Exercise counseling V65.41 and Inflamed skin tag 701.9 [place] [address] [place] [id number] [address] [place] [address] Dec, Depression, major, recurrent , moderate 296.32 [place] [address] [address] Dec, [place] [address] [address] Dec, Major depression, recurrent 296.30 ; Anxiety, generalized 300.02 and No condition on Robins II V71.09 [place] [address] [address] Dec, Depression, major, recurrent , moderate 296.32 [place] [address] [address] Dec, Major depressive disorder, r ecurrent episode, moderate 296.32 [place] [address] [address] Dec, Depression, major, recurrent , moderate 296.32 [place] [address] [address] Dec, Depression, major, recurrent , moderate 296.32 [place] [address] [address] Dec, Depression, major, recurrent , moderate 296.32 [place] [address] [address] Dec, Depression, major, recurrent , moderate 296.32 [place] [address] [address] Nov, Depression, major, recurrent , moderate 296.32 [place] [address] [address] Nov, Major depression 296.20 ; So cial phobia 300.23 and No condition on Robins II V71.09 [place] [id number] [place] [address] 16 Nov, 2014 Depression, major, recurrent , moderate 296.32 [facility] [address] [facility] [place] [id number] [address] [place] [address] 09 Nov, 2014 Major depressive disorder, r ecurrent episode, moderate 296.32 and Generalized anxiety disorder 300.02 [facility] [address] [facility] [place] [id number] [address] [place] [address] Nov, Depression, major, recurrent , moderate 296.32 [facility] [address] [facility] [place] [id number] [address] [place] [address] Nov, Depression, major, recurrent , moderate 296.32 [facility] [address] [place] [id number] [address] [place] [address] October, Generalized anxiety disorder 300.02 ; No condition on Robins II V71.09 and Major depressive disorder, recurrent 296.30 [facility] [address] [facility] [place] [id number] [address] [place] [address] 14 Sep, 2014 [facility] [address] [facility] [place] [id number] [address] [place] [address] Sep, [facility] [address] [place] [id number] [address] [place] [address] Aug, [facility] [address] [place] [id number] [address] [place] [address] Aug, [facility] [address] [facility] [place] [id number] [address] [place] [id number] Aug, [facility] [address] [facility] [place] [id number] [address] [place] [address] Aug, [facility] [address] [place] [id number] [address] [place] [address] Aug, [facility] [address] [facility] [place] [id number] [address] [place] [address] Aug, [facility] [address] [place] [id number] [address] [place] [address] 20 Aug, 2014 [facility] [address] [id number] [address] [place] [address], [place] [address] 20 Aug, 2014 [facility] [address] [id number] [address] [place] [address], [place] [address] 13 Aug, 2014 [facility] [address] [id number] [address] [place] [address], [place] [address] 13 Aug, 2014 [facility] [address] [id number] [address] [place] [address], [place] [address] 13 Aug, 2014 [facility] [address] [id number] [address] [place] [address], [place] [address] 13 Aug, 2014 [facility] [address] [id number] [address] [place] [address], [place] [address] Aug, [facility] [address] [id number] [address] [place] [address], [place] [address] Aug, [facility] [address] [id number] [address] [place] [address], [place] [address] 10 Aug, 2014 [facility] [address] [id number] [address] [place] [address], [place] [address] 10 Aug, 2014 [facility] [address] [id number] [address] [place] [address], [place] [address] Aug, [facility] [address] [id number] [address] [place] [address], [place] [address] Aug, [facility] [address] [id number] [address] [place] [address], [place] [address] 24 Jul, 2014 [facility] [address] [id number] [address] [place] [address], [place] [address] Jul, [facility] [address] [id number] [address] [place] [address], [place] [address] 16 Jul, 2014 [facility] [address] [id number] [address] [place] [address], [place] [address] 16 Fe2014 [facility] [address] [id number] [address] [place] [address], [place] [address] Jul, [facility] [address] [id number] [address] [place] [address], [place] [address] Jul, [facility] [address] [id number] [address] [place] [address], [place] [address] Jun, [facility] [address] [id number] [address] [place] [address], [place] [address] Jun, [facility] [address] [id number] [address] [place] [address], [place] [address] Jun, [facility] [address] [id number] [address] [place] [address], [place] [address] Jun, [facility] [address] [id number] [address] [place] [address], [place] [address] Jun, [facility] [address] [id number] [address] [place] [address], [place] [address] Jun, [facility] [address] [id number] [address] [place] [address], [place] [address] Jun, [facility] [address] [id number] [address] [place] [address] Jun, [facility] [address] [id number] [address] [place] [address] Jun, [facility] [address] [id number] [address] [place] [address] Jun, [facility] [address] [id number] [address] [place] [address], [place] [address] Jun, [facility] [address] [id number] [address] [place] [address], [place] [address] Jun, [facility] [place] [address] [id number] [place] [id number] Jun, [facility] [address] [id number] [address] [place] [address] Jun, [facility] [address] [id number] [address] [place] [address], [place] [address] Jun, [facility] [address] [id number] [address] [place] [address], [place] [address] Jun, [facility] [address] [id number] [address] [place] [address], [place] [address] May, [facility] [address] [id number] [address] [place] [address], [place] [address] May, [facility] [address] [id number] [address] [place] [address], [place] [address] May, [facility] [address] [id number] [address] [place] [address], [place] [address] May, [facility] [address] [id number] [address] [place] [address], [place] [address] Apr, [facility] [address] [id number] [address] [place] [address], [place] [address] Apr, [facility] [address] [id number] [address] [place] [address], [place] [address] Apr, [facility] [address] [id number] [address] [place] [address], [place] [address] Apr, [facility] [address] [id number] [address] [place] [address] Apr, [facility] [address] [id number] [address] [place] [address] Apr, [facility] [address] [id number] [address] [place] [address], [place] [address] Apr, [facility] [address] [id number] [address] [place] [address] Apr, [facility] [address] [id number] [address] [place] [address], [place] [address] Apr, [facility] [address] [id number] [address] [place] [address], [place] [address] Apr, [facility] [address] [id number] [address] [place] [address], [place] [address] Apr, [facility] [address] [id number] [address] [place] [address], [place] [address] Apr, [facility] [address] [id number] [address] [place] [address], [place] [address] Apr, [facility] [address] [id number] [address] [place] [address], [place] [address] Apr, [facility] [address] [id number] [address] [place] [address], [place] [address] Apr, [facility] [address] [id number] [address] [place] [address], [place] [address] Apr, [facility] [address] [id number] [address] [place] [address], [place] [address] Apr, [facility] [address] [id number] [address] [place] [address], [place] [address] Apr, [facility] [address] [id number] [address] [place] [address], [place] [address] Apr, [facility] [address] [id number] [address] [place] [address], [place] [address] Apr, [facility] [address] [id number] [address] [place] [address], [place] [address] Mar, [facility] [address] [id number] [address] [place] [address], [place] [address] Mar, [facility] [address] [id number] [address] [place] [address], [place] [address] Mar, [facility] [address] [id number] [address] [place] [address], [place] [address] Mar, [facility] [address] [id number] [address] [place] [address], [place] [address] Mar, [facility] [address] [id number] [address] [place] [address], [place] [address] Mar, [facility] [address] [id number] [address] [place] [address], [place] [address] Mar, [facility] [address] [id number] [address] [place] [address], [place] [address] Mar, [facility] [address] [id number] [address] [place] [address], [place] [address] Mar, [facility] [address] [id number] [address] [place] [address], [place] [address] Mar, [facility] [address] [id number] [address] [place] [address], [place] [address] Feb, [facility] [address] [id number] [address] [place] [address], [place] [address] Feb, [facility] [address] [id number] [address] [place] [address], [place] [address] Feb, [facility] [address] [id number] [address] [place] [address], [place] [address] Feb, [facility] [address] [id number] [address] [place] [address], [place] [address] Jan, [facility] [address] [id number] [address] [place] [address], [place] [address] Jan, [facility] [address] [id number] [address] [place] [address], [place] [address] Jan, [facility] [address] [id number] [address] [place] [address], [place] [address] Jan, [facility] [address] [id number] [address] [place] [address], [place] [address] Jan, [facility] [address] [id number] [address] [place] [address], [place] [address] Jan, [facility] [address] [id number] [address] [place] [address], [place] [address] Dec, [facility] [address] [id number] [facility] [address] Dec, [facility] [address] [address] [id number] [address] [place] [address], [place] [address] Nov, [facility] [address] [id number] [address] [place] [address], [place] [address] Nov, [facility] [address] [id number] [address] [place] [address], [place] [address] Nov, [facility] [address] [id number] [address] [place] [address], [place] [address] Nov, [facility] [address] [id number] [address] [place] [address], [place] [address] Nov, [facility] [address] [id number] [address] [place] [address], [place] [address] Nov, [facility] [address] [id number] [address] [place] [address], [place] [address] Sep, [facility] [address] [id number] [address] [place] [address], [place] [address] Sep, [facility] [address] [id number] [address] [place] [address], [place] [address] Sep, [facility] [address] [id number] [address] [place] [address], [place] [address] Sep, [facility] [address] [id number] [address] [place] [address], [place] [address] Aug, [facility] [address] [id number] [address] [place] [address], [place] [address] Aug, [facility] [address] [id number] [address] [place] [address], [place] [address] Jul, [facility] [address] [id number] [address] [place] [address], [place] [address] Jul, [facility] [address] [id number] [address] [place] [address], [place] [address] Jun, [facility] [address] [id number] [address] [place] [address], [place] [address] Jun, [facility] [address] [id number] [address] [place] [address], [place] [address] Jun, [facility] [address] [id number] [address] [place] [address], [place] [address] Jun, [facility] [address] [id number] [address] [place] [address], [place] [address] May, [facility] [address] [id number] [address] [place] [address], [place] [address] May, [facility] [address] [id number] [address] [place] [address], [place] [address] May, [facility] [address] [id number] [address] [place] [address], [place] [address] May, [facility] [address] [id number] [address] [place] [address], [place] [address] May, [facility] [address] [id number] [address] [place] [address], [place] [address] May, [facility] [address] [id number] [address] [place] [address], [place] [address] Apr, [facility] [address] [id number] [address] [place] [address], [place] [address] Apr, [facility] [address] [id number] [address] [place] [address], [place] [address] Apr, [facility] [address] [id number] [address] [place] [address], [place] [address] Apr, [facility] [address] [id number] [address] [place] [address], [place] [address] Mar, [facility] [address] [id number] [address] [place] [address], [place] [address] Mar, [facility] [address] [id number] [address] [place] [address], [place] [address] Mar, [facility] [address] [id number] [address] [place] [address], [place] [address] Mar, [facility] [address] [id number] [address] [place] [address], [place] [address] Feb, [facility] [address] [id number] [place] [id number] Jan, [facility] [address] [id number] [address] [place] [address], [place] [address] Jan, [facility] [address] [id number] [address] [place] [address], [place] [address] Dec, [facility] [address] [id number] [address] [place] [address], [place] [address] Dec, [facility] [address] [id number] [address] [place] [address], [place] [address] Dec, [facility] [address] [id number] [place] [id number] Dec, [facility] [address] [id number] [address] [place] [address], [place] [address] Nov, [facility] [address] [id number] [address] [place] [address], [place] [address] Nov, [facility] [address] [id number] [address] [place] [address] Nov, [facility] [address] [id number] [address] [place] [address], [place] [address] Nov, [facility] [address] [id number] [address] [place] [address], [place] [address] Nov, [facility] [address] [id number] [address] [place] [address], [place] [address] October, [facility] [address] [id number] [address] [address] October, [facility] [address] [facility] [id number] [place] [address] Aug, [facility] [address] [facility] [id number] [address] [place] [address] Nov, IMMUNIZATIONS No Known Immunizations SOCIAL HISTORY [...] 03/2016 Hospitalization History gastric sleeve Hospitalization History [facility] ER Trouble with left shoulder blade 08/2017
--- OUTSIDE RECORDS SUMMARY | 2019-11-29 09:14 | XMS REPORT ---
Author Author Curt DIAZ [facility] Address [address] [place] [address] Care Team Providers Care Manager Psychiatry Name Role Phone JOE CHRIS Unavailable PROBLEMS Type Condition ICD9-CM Code POY22-SF Code Onset Dates Condition S tatus SNOMED Code Problem Insomnia G47.00 Active 667613251 Problem Benign essential hypertension I10 Active 1624207 Problem Hyperlipemia E78.5 Active 3055662 4 Problem Edema R60.9 Active 209863994 Problem Morbid obesity E66.01 Active 74493 6002 Problem Severe episode of recurrent major depressive disorder, without psychotic features F33.2 Active 42494032 Problem Vitamin D deficiency E55.9 Active 28270513 Problem Mixed obsessional thoughts and acts F42.2 Active 28646884 Problem Chronic fatigue R53.82 Active 8422 9001 Problem Metabolic syndrome E88.81 Active 2 56538849 Problem Other chronic pain G89.29 Active 8 5583906 Problem Renal insufficiency N28.9 Active 335557139 Problem BMI 45.0-49.9, adult Z68.42 Active 496767536 Problem DANIELA (generalized anxiety disorder) F41.1 Active 22552394 Problem Sciatica, right side M54.31 Active [id number] Problem 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 Active 60450225 ALLERGIES No Information ENCOUNTERS Encounter Location Date Diagnosis [facility] [address] [facility] [id number] [address] [place] [phone] Jan, [facility] [address] [facility] [id number] [place] [address] [phone] Jan, [facility] [address] [facility] [id number] [address] [place] [phone] Dec, [facility] [address] [facility] [id number] [address] [place] [phone] Dec, Severe episode of recurrent major depressive disorder, without psychotic features F33.2 [facility] [address] [facility] [id number] [address] [place] [phone] Dec, DANIELA (generalized anxiety dis order) F41.1 ; Severe episode of recurrent major depressive disorder, without psychotic features F33.2 ; Mixed obsessional thoughts and acts F42.2 and 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 [facility] [address] [id number], [place] [id number] Dec, Morbid obesity E66.01 [facility] [address] [facility] [id number] [address] [place] [phone] Dec, [facility] [address] [facility] [id number] [address] [place] [phone] Dec, [address] [phone] Nov, [place] [address] [facility] [id number] [place] [address] [phone] Nov, [facility] [address] [facility] [id number] [address] [place] [phone] Nov, [facility] [address] [facility] [id number] [address] [place] [phone] Nov, [facility] [address] [facility] [id number] [address] [place] [phone] Nov, DANIELA (generalized anxiety dis order) F41.1 ; Severe episode of recurrent major depressive disorder, without psychotic features F33.2 ; Mixed obsessional thoughts and acts F42.2 and 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 [facility] [address] [id number], [place] [id number] Nov, Morbid obesity E66.01 [facility] [address] [facility] [id number] [address] [place] [phone] Nov, [facility] [address] [facility] [id number] [address] [place] [phone] Nov, DANIELA (generalized anxiety dis order) F41.1 ; Mixed obsessional thoughts and acts F42.2 ; Severe episode of recurrent major depressive disorder, without psychotic features F33.2 and 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 [facility] [address] [id number], [place] [id number] October, Morbid obesity E66.01 [facility] [address]ia[address] [place] [address] AVE [id number], [place] [id number] October, Benign essential hypertension I10 and Mo rbid obesity E66.01 [facility] [id number], [place] [id number] October, [facility] [address] [facility] [id number] [address] [place] [phone] October, Severe episode of recurrent major depressive disorder, without psychotic features F33.2 [facility] [address] [place] [address] AVE [id number], [place] [id number] October, Morbid obesity E66.01 [facility] TORRIE Bender[address] [place] [address] AVE [id number], [place] [id number] October, [facility] [address] [facility] [id number] [address] [place] [phone] October, Severe episode of recurrent major depressive disorder, without psychotic features F33.2 ; DANIELA (generalized anxiety disorder) F41.1 ; Mixed obsessional thoughts and acts F42.2 and 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 [facility] [id number], [place] [id number] October, Morbid obesity E66.01 [facility] [address] [facility] [id number] [address] [place] [address] [id number] Sep, Dental examination Z01.20 [facility] [address] [place] [address] A[address] [id number], [place] [id number] Sep, [facility] [address] [facility] [id number] [address] [place] [phone] Sep, Sore in mouth K13.79 and Mor bid obesity E66.01 [facility] [address] [facility] [id number] [address] [address] Sep, Dental examination Z01.20 [facility] [address] [facility] [id number] [address] [place] [phone] Sep, Anxiety disorder, unspecifie d F41.[address] [place] [address] [id number], [place] [id number] Sep, Mouth ulcer K12.[address] [id number], [place] [id number] Sep, Morbid obesity E66.[id number] [place] [address] [phone] Sep, Allergic rhinitis, unspecified seasonali ty, unspecified trigger J30.9 and Shortness of breath R06.[address] [id number], [place] [id number] Sep, 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 [id number], [place] [id number] Aug, Mouth abscess K12.2 ; Mouth ulcer K12.1 ; Bloating R14.0 and Morbid obesity E66.[address] [id number], [place] [id number] Aug, [place] [address] [id number], [place] [id number] Aug, [place] [address] [id number], [place] [id number] Jul, Major depressive disorder, recurrent, mo derate F33.1 ; Abscess of arm, left L02.414 ; BMI 45.0-49.9, adult Z68.42 and Morbid obesity E66.01 [facility] [address] [id number], [place] [id number] Jul, [facility] [address] [id number], [place] [id number] Jul, [facility] [address] [id number], [place] [id number] Jun, Pain in right knee M25.561 and Other chr onic pain G89.29 [facility] [address]ender[address] [place] [address] A[address] [id number], [place] [id number] Jun, Benign essential hypertension I10 ; BMI 45.0-49.9, adult Z68.42 ; Morbid obesity E66.01 ; Vitamin D deficiency E55.9 ; Insomnia G47.00 ; 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 ; Edema R60.9 ; Recurrent major depressive disorder, in partial remission F33.41 ; Chronic fatigue R53.82 ; Acute pain of right knee M25.561 ; Metabolic syndrome E88.81 and Irritable mood R45.4 [facility] [address] [place] [id number] [address] [place] [phone] Jun, [facility] [address] [place] [address] A[address] [id number], [place] [id number] Jun, Irritable mood R45.4 [facility] [address] [facility] [id number] [address] [place] [phone] May, [facility] [address] [place] [id number] [address] [place] [phone] May, [facility] [address] [facility] [id number] [address] [place] [phone] May, Recurrent major depressive d isorder, in partial remission F33.41 ; Mixed obsessional thoughts and acts F42.2 ; 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 and BMI 45.0-49.9, adult Z68.42 [facility] [address] [facility] [id number] [address] [place] [phone] Apr, [facility] [address] [facility] [id number] [address] [place] [phone] Apr, [facility] [address] [place] [id number] [address] [place] [phone] Apr, [facility] [address] [facility] [id number] [address] [place] [phone] Apr, [place] [address] [place] [id number] [address] [place] [phone] Mar, Mixed obsessional thoughts a nd acts F42.2 ; Recurrent major depressive disorder, in partial remission F33.41 ; DANIELA (generalized anxiety disorder) F41.1 and BMI 45.0-49.9, adult Z68.[address] [place] [address] [id number], [place] [id number] Mar, [facility] [id number] [place] [address] [id number] Mar, BMI 45.0-49.9, adult Z68.42 ; Instabilit y of right knee joint M25.361 and Rash R21 [place] [address] [place] [id number] [address] [place] [phone] Jan, Recurrent major depressive d isorder, in partial remission F33.41 ; Mixed obsessional thoughts and acts F42.2 and BMI 45.0-49.9, adult Z68.42 [facility] [place] [id number] [place] [address] [id number] Jan, [facility] [address] [id number], [place] [id number] Jan, Benign essential hypertension I10 ; BMI 45.0-49.9, adult Z68.42 ; Metabolic syndrome E88.81 and Allergic rhinitis, unspecified seasonality, unspecified trigger J30.9 [facility] [address] [facility] [id number] [address] [place] [phone] Dec, DANIELA (generalized anxiety dis order) F41.1 and Depressive disorder, not elsewhere classified F32.9 [facility] [address] [id number], [place] [id number] Dec, Recurrent major depressive disorder, in partial remission F33.41 [facility] [address] [id number], [place] [id number] Dec, [facility] [address] [address] [id number], [place] [id number] Nov, [facility] [address] [address] [id number], [place] [id number] Nov, Recurrent major depressive disorder, in partial remission F33.41 [facility] [address] [facility] [id number] [address] [place] [phone] Nov, Recurrent major depressive d isorder, in partial remission F33.41 ; Mixed obsessional thoughts and acts F42.2 ; DANIELA (generalized anxiety disorder) F41.1 and BMI 45.0-49.9, adult Z68.42 [facility] [address] [id number], [place] [id number] Nov, [facility] [address] [id number], [place] [id number] Nov, Other conjunctivitis of both eyes H10.89 and Sciatica, right side M54.31 [facility] [address] [address] [id number], [place] [id number] Nov, [facility] [address] [id number], [place] [id number] Nov, [facility] [address] [id number], [place] [id number] October, [facility] [address] [id number], [place] [id number] October, [facility] [address] [facility] [id number] [address] [place] [phone] October, BMI 45.0-49.9, adult Z68.42 ; Mixed obsessional thoughts and acts F42.2 ; Recurrent major depressive disorder, in partial remission F33.41 and DANIELA (generalized anxiety disorder) F41.1 [facility] [address] [address] [id number], [place] [id number] October, Benign essential hypertension I10 ; Morb id obesity E66.01 and BMI 45.0-49.9, adult Z68.42 [facility] [address] [id number], [place] [id number] Sep, [facility] [address] [id number], [place] [id number] Sep, [facility] [id number], [place] [id number] Sep, [address] [id number], [place] [id number] Sep, Hospital discharge follow-up Z09 ; Aller gic rhinitis, unspecified seasonality, unspecified trigger J30.9 and Shortness of breath R06.[address] [id number], [place] [id number] Sep, Recurrent major depressive disorder, in partial remission F33.[address] [id number], [place] [id number] Aug, Irritable mood R45.4 [place] [address] [place] [id number] [address] [place] [phone] Aug, [facility] [id number] [place] [address] [id number] Jul, Benign essential hypertension I10 ; Robert a R60.9 and Impacted cerumen of left ear H61.22 [place] [address] [place] [id number] [address] [place] [phone] Jul, Major depression F32.9 ; Rec urrent major depressive disorder, in partial remission F33.41 and Anxiety F41.9 [place] [address] [place] [id number] [place] [phone] Jun, Major depression F32.9 ; Rec urrent major depressive disorder, in partial remission F33.41 and Anxiety F41.[id number] [place] [address] [id number] Jun, Major depression F32.9 ; Morbid obesity E66.01 ; Irritable mood R45.4 ; Hand weakness R29.898 and Vitamin D deficiency E55.9 [facility] [address] [id number], [place] [id number] Jun, [facility] [address] [id number], [place] [id number] May, Major depression F32.9 [place] [address] [facility] [id number] [address] [place] [phone] May, Major depression F32.9 [facility] [id number] [place] [address] [id number] May, BMI 50.0-59.9, adult Z68.43 ; Major depr ession F32.9 ; Anxiety F41.9 ; Hypertrophic toenail L60.2 and Pain of left great toe M79.675 [facility] [id number] [place] [address] [id number] May, Recurrent major depressive disorder, in partial remission F33.41 [place] [address] [facility] [id number] [address] [place] [phone] Apr, [facility] [address] [id number], [place] [id number] Apr, [facility] [address] [facility] [id number] [address] [place] [phone] Apr, Major depression F32.9 [facility] [address] [id number], [place] [id number] Apr, Severe episode of recurrent major depres sive disorder, without psychotic features F33.2 ; Anxiety F41.9 and Insomnia G47.00 [facility] [address] [id number], [place] [id number] Apr, [facility] [address] [facility] [id number] [address] [place] [phone] Apr, [facility] [address] [id number], [place] [id number] Apr, [facility] [address] [id number], [place] [id number] Mar, [facility] [place] [address] [facility] [address] [id number], [place] [id number] Mar, Allergic conjunctivitis of both eyes H10 .13 [facility] [address] [facility] [id number] [address] [place] [phone] Mar, Major depression F32.9 [facility] [address] [facility] [address] [id number], [place] [id number] Mar, Metabolic syndrome E88.81 ; History of g astric bypass Z98.890 ; Benign essential hypertension I10 ; Allergic conjunctivitis of both eyes H10.13 and Morbid obesity E66.01 [place] [address] [place] [phone] Mar, Major depression F32.9 [place] [address] [facility] [address] [id number], [place] [id number] Feb, [place] [address] [place] [phone] Feb, Major depression F32.9 [place] [address] [facility] [address] [id number] [place] [address] [id number] Feb, Subacute maxillary sinusitis J01.00 and Bronchitis J40 [place] [address] [facility] [id number] [address] [place] [phone] Feb, Major depressive disorder, r ecurrent, moderate F33.1 [facility] [place] [address] [facility] [address] [id number], [place] [id number] Jan, [facility] [place] [address] [facility] [address] [id number], [place] [id number] Jan, Acute non-recurrent maxillary sinusitis J01.00 and Skin tag L91.8 [facility] [address] [id number], [place] [id number] Jan, Cough R05 and Sinus congestion R09.81 [id number] [place] [address] [id number] Jan, [facility] [id number] [place] [address] [id number] Jan, Benign essential hypertension I10 ; Hist ory of gastric bypass Z98.890 and Nausea and vomiting in adult R11.2 [place] [address] [place] [phone] 04 Jan, 2017 Major depressive disorder, r ecurrent, moderate F33.1 [place] [address] [place] [id number] [place] [phone] Dec, Insomnia G47.00 ; Recurrent major depressive disorder, in partial remission F33.41 and Morbid obesity E66.01 [id number] [place] [address] [id number] Dec, [facility] [id number] [place] [address] [id number] Dec, Chronic bacterial conjunctivitis of left eye H10.402 [facility] [id number] [place] [address] [id number] Nov, [facility] [id number] [place] [address] [id number] Nov, Dental examination Z01.20 [facility] [address] [id number] [place] [address] [id number] Nov, Benign essential hypertension I10 ; Hist ory of gastric bypass Z98.890 and Nausea and vomiting in adult R11.2 [place] [address] [place] [id number] [address] [place] [phone] 13 Nov, 2016 Major depressive disorder, r ecurrent, moderate F33.1 ; Generalized anxiety disorder F41.1 and Insomnia due to other mental disorder F51.05 [place] [address] [place] [id number] [address] [place] [phone] Nov, Recurrent major depressive d isorder, in partial remission F33.41 ; Insomnia G47.00 and Morbid obesity E66.01 [facility] [address] [id number] Kiesha ESCOBEDO S [id number] October, Abscess of left arm L02.414 [place] [address] [place] [id number] [address] [place] [phone] October, Morbid obesity E66.01 ; Lida r depression F32.9 and Recurrent major depressive disorder, in partial remission F33.[address] [id number], [place] [id number] Sep, Benign essential hypertension I10 ; Morb id obesity E66.01 ; S/P gastric bypass Z98.84 ; Abscess L02.91 and Chronic bacterial conjunctivitis of left eye H10.[id number] [place] [address] [id number] Sep, Dental examination Z01.20 [place] [address] [place] [id number] [address] [place] [phone] Sep, Morbid obesity E66.01 ; Lida r depression F32.9 and Recurrent major depressive disorder, in partial remission F33.41 [place] [address] [place] [phone] Jul, [place] [address] [place] [id number] [place] [phone] Jul, Major depressive disorder, r ecurrent, moderate F33.1 [place] [address] [place] [id number] [address] [place] [phone] Jul, Major depressive disorder, r ecurrent, moderate F33.1 and Generalized anxiety disorder F41.[address] [id number], [place] [id number] Jul, Cough R05 [place] [address] [place] [id number] [address] [place] [phone] 16 Feb, 2017 Morbid obesity E66.01 ; Lida r depression F32.9 and Recurrent major depressive disorder, in partial remission F33.41 [facility] [address] [id number], [place] [id number] Jul, [facility] [address] [id number], [place] [id number] Jul, [place] [address] [id number], [place] [id number] Jul, Gastroenteritis K52.9 and Cough R05 [facility] [address] [id number], [place] [id number] Jun, Acute bacterial conjunctivitis of left e ye H10.32 [place] [address] [facility] [id number] [address] [place] [phone] Jun, [place] [address] [place] [id number] [place] [phone] Jun, Recurrent major depressive d isorder, in partial remission F33.41 [place] [address] [address] [facility] [id number] [address] [place] [phone] May, Major depression F32.9 and M orbid obesity E66.01 [place] [address] [address] [facility] [id number] [address] [place] [phone] May, [facility] [address] [place] [address] A[id number] [place] [id number] May, Thrush B37.0 [place] [address] [address] [facility] [id number] [address] [place] [phone] Apr, Major depressive disorder, r ecurrent, moderate F33.1 [place] [address] [address] [facility] [id number] [address] [place] [phone] 15 Apr, 2016 Insomnia G47.00 ; Major depr ession F32.9 and Recurrent major depressive disorder, in partial remission F33.41 [place] [id number] [place] [id number] [address] [place] [phone] Apr, [facility] [address] [facility] [id number] [address] [place] [phone] Apr, Major depression F32.9 and R ecurrent major depressive disorder, in partial remission F33.41 [facility] [address] [id number] [id number] Mar, Benign essential hypertension I10 ; Morb id obesity E66.01 ; Impacted cerumen of both ears H61.23 ; Laceration of finger of right hand, initial encounter S61.219A and Encounter for immunization Z23 [facility] [address] [facility] [id number] [address] [place] [phone] Mar, [facility] [address] [facility] [id number] [address] [place] [phone] Mar, [facility] [address] [facility] [facility] [id number] [address] [place] [id number] Mar, [place] [address] [id number], [place] [id number] Feb, Nausea R11.0 ; Blood in the stool K92.1 and Benign essential hypertension I10 [facility] [address] [facility] [id number] [address] [place] [id number] Feb, Major depression F32.9 and R ecurrent major depressive disorder, in partial remission F33.41 [facility] [address] [id number], [place] [id number] Feb, [facility] [address] [id number], [place] [id number] Feb, Recurrent major depressive disorder, in partial remission F33.41 [facility] [address] [id number], [place] [id number] Jan, [facility] [address] [id number], [place] [id number] Jan, Benign essential hypertension I10 ; Robert a R60.9 and Hyperlipidemia, unspecified hyperlipidemia type E78.5 [facility] [address] [id number], [place] [id number] Jan, Recurrent major depressive disorder, in partial remission F33.41 [facility] [address] [id number] Kiesha ESCOBEDO S [id number] Jan, [facility] [address] [id number], [place] [id number] Jan, [facility] [address] [id number], [place] [id number] Jan, [facility] [address] [facility] [id number] [address] [place] [phone] Jan, [facility] [address] [facility] [id number] [address] [place] [phone] Dec, [facility] [address] [facility] [id number] [address] [place] [phone] Nov, [facility] [address] [facility] [id number] [address] [place] [id number] Nov, Major depression F32.9 [facility] [address] [facility] [id number] [address] [place] [phone] Nov, [facility] [address] [facility] [id number] [address] [place] [phone] Nov, [facility] [address] [facility] [id number] [address] [place] [phone] Nov, Major depressive disorder, r ecurrent episode, mild F33.0 and Anxiety F41.9 [facility] [address] [id number], [place] [id number] Nov, [facility] [address] [id number], [place] [id number] October, Left elbow pain M25.522 and Other season al allergic rhinitis J30.2 [facility] [address] [id number], [place] [id number] October, [facility] [address] [facility] [id number] [address] [place] [phone] October, Major depressive disorder, r ecurrent, moderate F33.1 [place] [id number] [facility] [id number] [address] [place] [phone] October, Major depression F32.9 [place] [id number] [facility] [id number] [address] [place] [phone] Sep, Pavo or callus L84 and Onych omycosis B35.1 [place] [address] [facility] [id number] [address] [place] [phone] Sep, Major depressive disorder, r ecurrent, moderate F33.1 [place] [address] [facility] [id number] [address] [place] [phone] Sep, Major depression F32.9 [place] [address] [facility] [id number] [address] [place] [phone] Sep, Moderate episode of recurren t major depressive disorder F33.1 [facility] [address] [id number], [place] [id number] Sep, Muscle strain T14.8 [place] [id number] [facility] [id number] [address] [place] [id number] Aug, Major depression F32.9 [place] [address] [facility] [id number] [address] [place] [phone] Aug, Major depression F32.9 [place] [id number] [facility] [id number] [address] [place] [phone] Jul, Morbid obesity E66.01 and Ma cora depression F32.9 [place] [address] [facility] [id number] [address] [place] [phone] Jul, Depression, major, recurrent , moderate F33.1 [facility] [address] [id number], [place] [id number] Jul, [place] [address] [id number] Jul, [place] [address] [id number] 16 Jul, 2015 Major depression F32.9 and M orbid obesity E66.01 [facility] [address] [place] [address] AVE [id number], [place] [id number] 11 Jul, 2015 Type II diabetes mellitus E11.9 ; Callus of foot L84 ; Benign essential hypertension I10 and Renal insufficiency N28.9 [place] [address] [id number] 09 Jul, 2015 Depression, major, recurrent , moderate F33.1 [place] [address] [id number] 05 Jul, 2015 Major depression F32.9 [place] [address] [address] Jul, [place] [address] [address] Jun, Major depression F32.9 [place] [address] [address] Jun, Major depressive disorder, r ecurrent, moderate F33.1 [place] [address] [address] Jun, [place] [address] [address] Jun, Major depressive disorder, r ecurrent, moderate F33.1 and Major depression F32.9 [facility] [address] [facility] [address] [id number], [place] [id number] Jun, Type II diabetes mellitus E11.9 [place] [address] [place] [id number] [address] [place] [phone] Jun, Depression, major, recurrent , moderate F33.1 [place] [id number] [place] [phone] May, Major depressive disorder, r ecurrent, moderate F33.1 [place] [address] [facility] [id number] [address] [place] [phone] May, [place] [id number] [place] [address] [id number] May, Edema R60.9 [place] [address] [facility] [id number] [address] [place] [phone] May, Insomnia G47.00 and Major de pression F32.[id number] [place] [id number] 15 May, 2015 Morbid obesity E66.01 ; Edema R60.9 ; Sh ortness of breath R06.02 ; Benign essential hypertension I10 and Renal insufficiency N28.[id number] [place] [address] [id number] May, Hyperlipemia 272.4 and Renal insufficien cy N28.9 [place] [address] [facility] [id number] [address] [place] [phone] Apr, Major depression F32.9 [place] [address] [facility] [id number] [address] [place] [phone] Apr, [place] [address] [facility] [id number] [address] [place] [phone] Apr, Major depressive disorder, r ecurrent, moderate F33.[address] [place] [id number] [place] [address] [id number] Apr, Type II diabetes mellitus E11.9 ; Benign essential hypertension I10 ; Edema R60.9 and Renal insufficiency N28.9 [place] [address] [facility] [id number] [address] [place] [phone] Mar, Major depressive disorder, r ecurrent, moderate F33.1 [place] [address] [facility] [id number] [address] [place] [phone] Mar, [place] [address] [facility] [id number] [address] [place] [phone] Mar, Major depression F32.[address] [id number], [place] [id number] Mar, Morbid obesity E66.01 ; Benign essential hypertension I10 and Type II diabetes mellitus E11.9 [place] [address] [place] [id number] [address] [place] [phone] Feb, Major depressive disorder, r ecurrent, moderate F33.1 [place] [id number] [address] [place] [phone] Feb, Major depressive disorder, r ecurrent episode, in partial or unspecified remission 296.35 ; Anxiety state, unspecified 300.00 and Morbid obesity 278.01 [place] [address] [place] [id number] [address] [place] [address] Feb, [id number] [place] [address] [id number] Feb, Vomiting 787.03 and Viral syndrome 079.9 9 [place] [address] [place] [id number] [address] [place] [phone] 15 Feb, 2015 Major depression, recurrent 296.30 ; Generalized anxiety disorder 300.02 and No condition on [place] II V71.[address] [id number], [place] [id number] Feb, Skin tag 701.9 [place] [address] [facility] [id number] [address] [place] [phone] Feb, [address] [id number] [address] [place] [phone] Jan, Depression, major, recurrent , moderate 296.[address] [id number], [place] [id number] Jan, Nausea and vomiting 787.01 ; Rib pain on right side 786.50 and Fall on or from sidewalk curb E880.1 [facility] [address] [facility] [id number] [address] [place] [phone] Jan, [facility] [address] [place] [id number] [address] [place] [phone] Jan, Major depressive disorder, r ecurrent episode, in partial or unspecified remission 296.35 and Anxiety state, unspecified 300.[address] [id number], [place] [id number] Jan, [facility] [address] [facility] [id number] [address] [place] [phone] Jan, Depression, major, recurrent , moderate 296.32 [place] [address] [place] [id number] [address] [place] [phone] Jan, Major depression, recurrent 296.30 ; No condition on [place] II V71.09 and No condition on axis III V71.[address] [id number], [place] [id number] Jan, Drug-induced nausea and vomiting 787.01 [place] [id number] [place] [phone] Jan, Depression, major, recurrent , moderate 296.32 [place] [id number] [address] [place] [phone] Dec, Depression, major, recurrent , moderate 296.32 [address] [id number], [place] [id number] Dec, Morbid obesity 278.01 ; Metabolic syndro me 277.7 ; Hyperlipemia 272.4 ; Benign essential hypertension 401.1 ; Dietary counseling V65.3 ; Exercise counseling V65.41 and Inflamed skin tag 701.[address] [id number] [address] [place] [phone] Dec, Depression, major, recurrent , moderate 296.32 [address] [place] [address] Dec, [place] [address] [address] Dec, Major depression, recurrent 296.30 ; Anxiety, generalized 300.02 and No condition on [place] II V71.09 [place] [address] [address] Dec, Depression, major, recurrent , moderate 296.32 [place] [address] [address] Dec, Major depressive disorder, r ecurrent episode, moderate 296.32 [place] [address] [address] Dec, Depression, major, recurrent , moderate 296.32 [place] [address] [address] Dec, Depression, major, recurrent , moderate 296.32 [place] [address] [address] Dec, Depression, major, recurrent , moderate 296.32 [place] [address] [address] Dec, Depression, major, recurrent , moderate 296.32 [place] [address] [address] Nov, Depression, major, recurrent , moderate 296.32 [place] [address] [address] Nov, Major depression 296.20 ; So cial phobia 300.23 and No condition on [place] II V71.09 [place] [address] [address] Nov, Depression, major, recurrent , moderate 296.32 [place] [address] [address] Nov, Major depressive disorder, r ecurrent episode, moderate 296.32 and Generalized anxiety disorder 300.02 [facility] [address] [id number] [address] [place] [phone] Nov, Depression, major, recurrent , moderate 296.32 [facility] [address] [id number] [address] [place] [address] Nov, Depression, major, recurrent , moderate 296.32 [facility] [address] [facility] [id number] [address] [place] [phone] October, Generalized anxiety disorder 300.02 ; No condition on [place] II V71.09 and Major depressive disorder, recurrent 296.30 [facility] [address] [id number] [address] [place] [phone] Sep, [facility] [address] [facility] [id number] [address] [place] [phone] Sep, [facility] [address] [id number] [address] [place] [phone] Aug, [facility] [address] [id number] [address] [place] [phone] Aug, [facility] [address] [facility] [id number] [address] [place] [phone] Aug, [facility] [address] [id number] [address] [place] [phone] Aug, [facility] [address] [id number] [address] [place] [phone] Aug, [facility] [address] [id number] [address] [place] [phone] Aug, [facility] [address] [id number] [address] [place] [phone] Aug, [facility] [address] [id number] [address] [place] [phone] Aug, [facility] [address] [id number] [address] [place] [phone] 13 Aug, 2014 [facility] [address] [id number] [address] [place] [address], [place] [address] 13 Aug, 2014 [facility] [address] [id number] [address] [place] [address], [place] [address] 13 Aug, 2014 [facility] [address] [id number] [address] [place] [address], [place] [address] 13 Aug, 2014 [facility] [address] [id number] [address] [place] [address], [place] [address] Aug, [facility] [address] [id number] [address] [place] [address], [place] [address] Aug, [facility] [address] [id number] [address] [place] [address], [place] [address] Aug, [facility] [address] [id number] [address] [place] [address], [place] [address] Aug, [facility] [address] [id number] [address] [place] [address], [place] [address] Aug, [facility] [address] [id number] [address] [place] [address], [place] [address] Aug, [facility] [address] [id number] [address] [place] [address], [place] [address] Jul, 2014 [facility] [address] [id number] [address] [place] [address], [place] [address] Jul, 2014 [facility] [address] [id number] [address] [place] [address], [place] [address] Jul, 2014 [facility] [address] [id number] [address] [place] [address], [place] [address] Jul, 2014 [facility] [address] [id number] [address] [place] [address], [place] [address] Jul, 2014 [facility] [address] [id number] [address] [place] [address], [place] [address] Jul, [facility] [address] [id number] [address] [place] [address], [place] [address] Jun, [facility] [address] [id number] [address] [place] [address], [place] [address] Jun, [facility] [address] [id number] [address] [place] [address], [place] [address] Jun, [facility] [address] [id number] [address] [place] [address], [place] [address] Jun, [facility] [address] [id number] [address] [place] [address], [place] [address] Jun, [facility] [address] [id number] [address] [place] [address], [place] [address] Jun, [facility] [address] [id number] [address] [place] [address], [place] [address] Jun, [facility] [address] [id number] [address] [place] [address], [place] [address] Jun, [facility] [address] [id number] [address] [place] [address], [place] [address] Jun, [facility] [address] [id number] [address] [place] [phone] Jun, [facility] [address] [id number] [address] [place] [address], [place] [address] Jun, [facility] [address] [id number] [address] [place] [phone] Jun, [facility] [address] [id number] [place] [id number] Jun, [facility] [address] [id number] [address] [place] [address], [place] [address] Jun, [facility] [address] [id number] [address] [place] [address], [place] [address] Jun, [facility] [address] [id number] [address] [place] [phone] Jun, [facility] [address] [id number] [address] [place] [address], [place] [address] May, [facility] [address] [id number] [address] [place] [address], [place] [address] May, [facility] [address] [id number] [address] [place] [address], [place] [address] May, [facility] [address] [id number] [address] [place] [address], [place] [address] May, [facility] [address] [id number] [address] [place] [address], [place] [address] Apr, [facility] [address] [id number] [address] [place] [address], [place] [address] Apr, [facility] [address] [id number] [address] [place] [address], [place] [address] Apr, [facility] [address] [id number] [address] [place] [address], [place] [address] Apr, [facility] [address] [id number] [address] [place] [address], [place] [address] Apr, [facility] [address] [id number] [address] [place] [address], [place] [address] Apr, [facility] [address] [id number] [address] [place] [id number] Apr, [facility] [address] [id number] [address] [place] [id number] Apr, [facility] [address] [id number] [address] [place] [address], [place] [address] Apr, [facility] [address] [id number] [address] [place] [address], [place] [address] Apr, [facility] [address] [id number] [address] [place] [id number] Apr, [facility] [address] [id number] [address] [place] [address], [place] [address] Apr, [facility] [address] [id number] [address] [place] [address], [place] [address] Apr, [facility] [address] [id number] [address] [place] [address], [place] [address] Apr, [facility] [address] [id number] [address] [place] [address], [place] [address] Apr, [facility] [address] [id number] [address] [place] [address], [place] [address] Apr, [facility] [address] [id number] [address] [place] [address], [place] [address] Apr, [facility] [address] [id number] [address] [place] [address], [place] [address] Apr, [facility] [address] [id number] [address] [place] [address], [place] [address] Apr, [facility] [address] [id number] [address] [place] [address], [place] [address] Apr, [facility] [address] [id number] [address] [place] [address], [place] [address] Mar, [facility] [address] [id number] [address] [place] [address], [place] [address] Mar, [facility] [address] [id number] [address] [place] [address], [place] [address] Mar, [facility] [address] [id number] [address] [place] [address], [place] [address] Mar, [facility] [address] [id number] [address] [place] [address], [place] [address] Mar, [facility] [address] [id number] [address] [place] [address], [place] [address] Mar, [facility] [address] [id number] [address] [place] [address], [place] [address] Mar, [facility] [address] [id number] [address] [place] [address], [place] [address] Mar, [facility] [address] [id number] [address] [place] [address], [place] [address] Mar, [facility] [address] [id number] [address] [place] [address], [place] [address] Mar, [facility] [address] [id number] [address] [place] [address], [place] [address] Feb, [facility] [address] [id number] [address] [place] [address], [place] [address] Feb, [facility] [address] [id number] [address] [place] [address], [place] [address] Feb, [facility] [address] [id number] [address] [place] [address], [place] [address] Feb, [facility] [address] [id number] [address] [place] [address], [place] [address] Jan, [facility] [address] [id number] [address] [place] [address], [place] [address] Jan, [facility] [address] [id number] [address] [place] [address], [place] [address] Jan, [facility] [address] [id number] [address] [place] [address], [place] [address] Jan, [facility] [address] [id number] [address] [place] [address], [place] [address] Jan, [facility] [address] [id number] [address] [place] [address], [place] [address] Jan, [facility] [address] [id number] [address] [place] [address], [place] [address] Dec, [facility] [address] [id number] [address] [place] [address], [place] [address] Dec, [facility] [address] [id number] [address] [place] [address], [place] [address] Nov, [facility] [address] [id number] [facility] [place] [address] Nov, [facility] [address] [id number] [address] [place] [address], [place] [address] Nov, [facility] [address] [id number] [address] [place] [address], [place] [address] Nov, [facility] [address] [id number] [address] [place] [address], [place] [address] Nov, [facility] [address] [id number] [address] [place] [address], [place] [address] Nov, [facility] [address] [id number] [address] [place] [address], [place] [address] Sep, [facility] [address] [id number] [address] [place] [address], [place] [address] Sep, [facility] [address] [id number] [address] [place] [address], [place] [address] Sep, [facility] [address] [id number] [address] [place] [address], [place] [address] Sep, [facility] [address] [id number] [address] [place] [address], [place] [address] Aug, [facility] [address] [id number] [address] [place] [address], [place] [address] Aug, [facility] [address] [id number] [address] [place] [address], [place] [address] Jul, [facility] [address] [id number] [address] [place] [address], [place] [address] Jul, [facility] [address] [id number] [address] [place] [address], [place] [address] Jun, [facility] [address] [address] [id number] [address] [place] [address], [place] [id number] Jun, [facility] [address] [id number] [address] [place] [address], [place] [id number] 16 Jun, 2013 [facility] [address] [id number] [address] [place] [address], [place] [address] Jun, [facility] [address] [id number] [address] [place] [address], [place] [address] May, [facility] [address] [id number] [address] [place] [address], [place] [address] May, [facility] [address] [id number] [address] [place] [address], [place] [address] May, [facility] [address] [id number] [address] [place] [address], [place] [address] May, [facility] [address] [id number] [address] [place] [address], [place] [address] May, [facility] [address] [id number] [address] [place] [address], [place] [address] May, [facility] [address] [id number] [address] [place] [address], [place] [address] Apr, [facility] [address] [id number] [address] [place] [address], [place] [address] Apr, [facility] [address] [id number] [address] [place] [address], [place] [address] Apr, [facility] [address] [id number] [address] [place] [address], [place] [address] Apr, [facility] [address] [id number] [address] [place] [address], [place] [address] Mar, [facility] [address] [id number] [address] [place] [address], [place] [address] Mar, [facility] [address] [id number] [address] [place] [address], [place] [address] Mar, [facility] [address] [id number] [address] [place] [address], [place] [address] Mar, [facility] [address] [id number] [address] [place] [address], [place] [address] Feb, [facility] [place] [address] [id number] [place] [id number] Jan, [facility] [address] [id number] [facility] [place] [address] Jan, [facility] [address] [id number] [address] [place] [address], [place] [address] Dec, [facility] [address] [id number] [address] [place] [address], [place] [address] Dec, [facility] [address] [id number] [address] [place] [address], [place] [address] Dec, [facility] [place] [address] [id number] [place] [id number] Dec, [facility] [address] [id number] [address] [place] [address], [place] [address] Nov, [facility] [address] [id number] [address] [place] [address], [place] [address] Nov, [facility] [address] [id number] [address] [place] [address], [place] [address] Nov, [facility] [address] [id number] [address] [place] [address], [place] [address] Nov, [facility] [address] [id number] [address] [place] [address], [place] [address] Nov, [facility] [address] [id number] [address] [place] [address], [place] [address] October, [facility] [address] [id number] [address] [place] [address], [place] [address] October, [facility] [address] [id number] [address] [place] [address], [place] [address] Aug, [facility] [address] [id number] [address] [address] Nov, IMMUNIZATIONS No Known Immunizations SOCIAL HISTORY Never Assessed REASON FOR VISIT PLAN OF CARE VITAL SIGNS Weight 440.8 lbs 2014-06-24 Temperature 96.9 degrees Fahrenheit 2014-06-24 Heart Rate 76 bpm 2014-06-24 Respiratory Rate 18 2014-06-24 Blood pressure systolic 135 mmHg 2014-06-24 Blood pressure diastolic 78 mmHg 2014-06-24 MEDICATIONS Unknown Medications RESULTS No Results PROCEDURES Procedure Date Ordered Result Body Site EAR IRRIGATION Jun 24, 2014 INSTRUCTIONS MEDICATIONS ADMINISTERED No Known Medications [...] 03/2016 Hospitalization History gastric sleeve Hospitalization History [facility] Trouble with left shoulder blade 08/2017
--- OUTSIDE RECORDS SUMMARY | 2019-11-29 09:15 | XMS REPORT ---
Author Author Curt DIAZ [facility] Address [address] [place] [address] Care Team Providers Care Client Services Assistant Name Role Phone JOE CHRIS Unavailable PROBLEMS Type Condition ICD9-CM Code EMS00-VB Code Onset Dates Condition S tatus SNOMED Code Problem Insomnia G47.00 Active 126848311 Problem Benign essential hypertension I10 Active 7094440 Problem Hyperlipemia E78.5 Active 4781917 4 Problem Edema R60.9 Active 065876339 Problem Morbid obesity E66.01 Active 66987 6002 Problem Severe episode of recurrent major depressive disorder, without psychotic features F33.2 Active 12616407 Problem Vitamin D deficiency E55.9 Active 67625693 Problem Mixed obsessional thoughts and acts F42.2 Active 91747917 Problem Chronic fatigue R53.82 Active 8422 9001 Problem Metabolic syndrome E88.81 Active 2 28331728 Problem Other chronic pain G89.29 Active 8 8121544 Problem Renal insufficiency N28.9 Active 074043101 Problem BMI 45.0-49.9, adult Z68.42 Active 845450022 Problem DANIELA (generalized anxiety disorder) F41.1 Active 24243514 Problem Sciatica, right side M54.31 Active 253333522765330 Problem 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 Active 83236012 ALLERGIES No Information ENCOUNTERS Encounter Location Date Diagnosis [facility] [place] [address] [facility] [id number] [address] [place] [phone] Jan, [facility] [address] [facility] [id number] [place] [address] [phone] Jan, [facility] [place] [address] [facility] [id number] [address] [place] [phone] Dec, Severe episode of recurrent major depressive disorder, without psychotic features F33.2 [facility] [place] [address] [facility] [id number] [address] [place] [phone] Dec, DANIELA (generalized anxiety dis order) F41.1 ; Severe episode of recurrent major depressive disorder, without psychotic features F33.2 ; Mixed obsessional thoughts and acts F42.2 and 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 [facility] [address] [facility] [address] [id number][place] [id number] Dec, Morbid obesity E66.01 [facility] [place] [address] [facility] [id number] [address] [place] [phone] Dec, [facility] [place] [address] [facility] [id number] [address] [place] [address] Dec, [address] [phone] Nov, [facility] [address] [facility] [id number][place] [id number] Nov, [facility] [place] [address] [facility] [id number] [address] [place] [phone] Nov, [facility] [place] [address] [facility] [id number] [address] [place] [phone] Nov, [facility] [place] [address] [facility] [id number] [address] [place] [phone] Nov, DANIELA (generalized anxiety dis order) F41.1 ; Severe episode of recurrent major depressive disorder, without psychotic features F33.2 ; Mixed obsessional thoughts and acts F42.2 and 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 [facility] [address] [facility] [address] [id number], [place] [id number] Nov, Morbid obesity E66.01 [facility] [place] [address] [facility] [id number] [address] [place] [phone] Nov, [facility] [place] [address] [facility] [id number] [address] [place] [phone] Nov, DANIELA (generalized anxiety dis order) F41.1 ; Mixed obsessional thoughts and acts F42.2 ; Severe episode of recurrent major depressive disorder, without psychotic features F33.2 and 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 [facility] [address] [id number], [place] [id number] October, Morbid obesity E66.01 [facility] Jama [facility] [address] [id number], [place] [id number] October, Benign essential hypertension I10 and Mo rbid obesity E66.01 [facility] Bender[address] [place] [address] A[id number] [place] [address] [id number] October, [facility] [place] [address] [place] [id number] [address] [place] [phone] October, Severe episode of recurrent major depressive disorder, without psychotic features F33.2 [facility] Jama [facility] [id number] [place] [address] [id number] October, Morbid obesity E66.01 [facility] [address]ender[address] [place] [id number] [place] [address] [id number] October, [facility] [place] [address] [place] [id number] [address] [place] [phone] October, Severe episode of recurrent major depressive disorder, without 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 ; DANIELA (generalized anxiety disorder) F41.1 ; Mixed obsessional thoughts and acts F42.2 and 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 [facility] Yulia[address] [place] [id number] [place] [address] [phone] October, Morbid obesity E66.01 [facility] [address] [facility] [id number] [address] [place] [address] [id number] Sep, Dental examination Z01.20 [facility] [id number] [place] [address] [id number] Sep, [facility] [address] [place] [id number] [address] [place] [phone] Sep, Sore in mouth K13.79 and Mor bid obesity E66.01 [facility] [place] [address] [place] [id number] [address] [place] [address] Sep, Dental examination Z01.20 [facility] [place] [address] [facility] [id number] [address] [place] [address] Sep, Anxiety disorder, unspecifie d F41.9 [facility] [id number], [place] [id number] Sep, Mouth ulcer K12.[address] [id number], [place] [id number] Sep, Morbid obesity E66.01 [facility] [id number], [place] [id number] Sep, Allergic rhinitis, unspecified seasonali ty, unspecified trigger J30.9 and Shortness of breath R06.02 [facility] [id number], [place] [id number] Sep, 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 [facility] [address] [id number], [place] [id number] Aug, Mouth abscess K12.2 ; Mouth ulcer K12.1 ; Bloating R14.0 and Morbid obesity E66.01 [facility] [address] [id number], [place] [id number] Aug, [facility] [id number], [place] [id number] Aug, [facility] [address] [id number], [place] [id number] Jul, Major depressive disorder, recurrent, mo derate F33.1 ; Abscess of arm, left L02.414 ; BMI 45.0-49.9, adult Z68.42 and Morbid obesity E66.01 [facility] [address] [id number], [place] [id number] Jul, [facility] [id number], [place] [id number] Jul, [facility] [address] [id number], [place] [id number] Jun, Pain in right knee M25.561 and Other chr onic pain G89.29 [facility] [address] [id number], [place] [id number] Jun, Benign essential hypertension I10 ; BMI 45.0-49.9, adult Z68.42 ; Morbid obesity E66.01 ; Vitamin D deficiency E55.9 ; Insomnia G47.00 ; 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 ; Edema R60.9 ; Recurrent major depressive disorder, in partial remission F33.41 ; Chronic fatigue R53.82 ; Acute pain of right knee M25.561 ; Metabolic syndrome E88.81 and Irritable mood R45.4 [facility] [place] [address] [facility] [id number] [address] [place] [phone] Jun, [facility] [address] [facility] [address] [id number], [place] [id number] Jun, Irritable mood R45.4 [facility] [place] [address] [facility] [id number] [address] [place] [phone] May, [facility] [place] [address] [facility] [id number] [address] [place] [phone] May, [facility] [place] [address] [facility] [id number] [address] [place] [phone] May, Recurrent major depressive d isorder, in partial remission F33.41 ; Mixed obsessional thoughts and acts F42.2 ; 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 and BMI 45.0-49.9, adult Z68.42 [facility] [place] [address] [facility] [id number] [address] [place] [phone] Apr, [facility] [place] [address] [facility] [id number] [address] [place] [phone] Apr, [facility] [place] [address] [facility] [id number] [address] [place] [phone] Apr, [facility] [place] [address] [facility] [id number] [address] [place] [phone] Apr, [place] [address] [facility] [id number] [address] [place] [phone] Mar, Mixed obsessional thoughts a nd acts F42.2 ; Recurrent major depressive disorder, in partial remission F33.41 ; DANIELA (generalized anxiety disorder) F41.1 and BMI 45.0-49.9, adult Z68.42 [facility] [address] [id number], [place] [id number] Mar, [facility] [address] [id number], [place] [id number] Mar, BMI 45.0-49.9, adult Z68.42 ; Instabilit y of right knee joint M25.361 and Rash R21 [place] [address] [facility] [id number] [address] [place] [phone] Jan, Recurrent major depressive d isorder, in partial remission F33.41 ; Mixed obsessional thoughts and acts F42.2 and BMI 45.0-49.9, adult Z68.42 [facility] [address] [id number], [place] [id number] Jan, [facility] [address] [id number], [place] [id number] Jan, Benign essential hypertension I10 ; BMI 45.0-49.9, adult Z68.42 ; Metabolic syndrome E88.81 and Allergic rhinitis, unspecified seasonality, unspecified trigger J30.9 [place] [address] [facility] [id number] [address] [place] [phone] Dec, DANIELA (generalized anxiety dis order) F41.1 and Depressive disorder, not elsewhere classified F32.9 [facility] [address] [id number], [place] [id number] Dec, Recurrent major depressive disorder, in partial remission F33.41 [facility] [address] [id number], [place] [id number] Dec, [facility] [address] [id number], [place] [id number] Nov, [facility] [address] [id number], [place] [id number] Nov, Recurrent major depressive disorder, in partial remission F33.41 [facility] [place] [address] [facility] [id number] [address] [place] [phone] Nov, Recurrent major depressive d isorder, in partial remission F33.41 ; Mixed obsessional thoughts and acts F42.2 ; DANIELA (generalized anxiety disorder) F41.1 and BMI 45.0-49.9, adult Z68.42 [facility] [address] [id number], [place] [id number] Nov, [facility] [address] [id number], [place] [id number] Nov, Other conjunctivitis of both eyes H10.89 and Sciatica, right side M54.31 [facility] [address] [id number], [place] [id number] Nov, [facility] [address] [id number], [place] [id number] Nov, [facility] [address] [id number], [place] [id number] October, [facility] [address] [id number], [place] [id number] October, [facility] [place] [address] [facility] [id number] [address] [place] [phone] October, BMI 45.0-49.9, adult Z68.42 ; Mixed obsessional thoughts and acts F42.2 ; Recurrent major depressive disorder, in partial remission F33.41 and DANIELA (generalized anxiety disorder) F41.[address] [facility] [address] [id number], [place] [id number] October, Benign essential hypertension I10 ; Morb id obesity E66.01 and BMI 45.0-49.9, adult Z68.[address] [facility] [address] [id number], [place] [id number] Sep, [facility] [id number], [place] [id number] Sep, [facility] [id number], [place] [id number] Sep, [address] [id number], [place] [id number] Sep, Hospital discharge follow-up Z09 ; Aller gic rhinitis, unspecified seasonality, unspecified trigger J30.9 and Shortness of breath R06.[address] [id number], [place] [id number] Sep, Recurrent major depressive disorder, in partial remission F33.[address] [id number], [place] [id number] Aug, Irritable mood R45.4 [place] [address] [place] [address] Aug, [address] [id number], [place] [id number] Jul, Benign essential hypertension I10 ; Robert a R60.9 and Impacted cerumen of left ear H61.22 [place] [address] [place] [phone] Jul, Major depression F32.9 ; Rec urrent major depressive disorder, in partial remission F33.41 and Anxiety F41.9 [place] [address] [place] [id number] [place] [address] Jun, Major depression F32.9 ; Rec urrent major depressive disorder, in partial remission F33.41 and Anxiety F41.[address] [id number], [place] [id number] Jun, Major depression F32.9 ; Morbid obesity E66.01 ; Irritable mood R45.4 ; Hand weakness R29.898 and Vitamin D deficiency E55.9 [facility] [address] [id number], [place] [id number] Jun, [facility] [address] [id number], [place] [id number] May, Major depression F32.9 [facility] [place] [address] [facility] [id number] [address] [place] [phone] May, Major depression F32.9 [facility] [address] [id number], [place] [id number] May, BMI 50.0-59.9, adult Z68.43 ; Major depr ession F32.9 ; Anxiety F41.9 ; Hypertrophic toenail L60.2 and Pain of left great toe M79.675 [facility] [address] [id number], [place] [id number] May, Recurrent major depressive disorder, in partial remission F33.41 [facility] [place] [address] [place] [id number] [address] [place] [address] Apr, [facility] [address] [id number], [place] [id number] Apr, [facility] [place] [address] [facility] [id number] [address] [place] [address] Apr, Major depression F32.9 [facility] [address] [id number], [place] [id number] Apr, Severe episode of recurrent major depres sive disorder, without psychotic features F33.2 ; Anxiety F41.9 and Insomnia G47.00 [facility] [address] [id number], [place] [id number] Apr, [facility] [place] [address] [facility] [id number] [address] [place] [address] Apr, [facility] [address] [id number], [place] [id number] Apr, [facility] [address] [id number], [place] [id number] Mar, [facility] [address] [id number], [place] [id number] Mar, Allergic conjunctivitis of both eyes H10 .13 [facility] [place] [address] [facility] [id number] [address] [place] [phone] Mar, Major depression F32.9 [facility] [address] [id number], [place] [id number] Mar, Metabolic syndrome E88.81 ; History of g astric bypass Z98.890 ; Benign essential hypertension I10 ; Allergic conjunctivitis of both eyes H10.13 and Morbid obesity E66.01 [facility] [place] [address] [facility] [id number] [address] [place] [address] Mar, Major depression F32.9 [facility] [address] [facility] [address] [id number], [place] [id number] Feb, [facility] [place] [address] [facility] [id number] [address] [place] [address] Feb, Major depression F32.9 [facility] [address] [facility] [address] [id number], [place] [id number] Feb, Subacute maxillary sinusitis J01.00 and Bronchitis J40 [place] [address] [facility] [id number] [address] [place] [phone] Feb, Major depressive disorder, r ecurrent, moderate F33.1 [facility] [address] [id number], [place] [id number] Jan, [facility] [address] [id number], [place] [id number] Jan, Acute non-recurrent maxillary sinusitis J01.00 and Skin tag L91.8 [facility] [address] [id number], [place] [id number] Jan, Cough R05 and Sinus congestion R09.81 [facility] [address] [id number], [place] [id number] Jan, [facility] [address] [id number], [place] [id number] Jan, Benign essential hypertension I10 ; Hist ory of gastric bypass Z98.890 and Nausea and vomiting in adult R11.2 [facility] [place] [address] [facility] [id number] [address] [place] [phone] 04 Jan, 2017 Major depressive disorder, r ecurrent, moderate F33.1 [place] [address] [facility] [id number] [address] [place] [address] Dec, Insomnia G47.00 ; Recurrent major depressive disorder, in partial remission F33.41 and Morbid obesity E66.01 [facility] [address] [facility] [address] [id number], [place] [id number] Dec, [facility] [address] [place] [address] AVE [id number] [place] [address] [id number] Dec, Chronic bacterial conjunctivitis of left eye H10.402 [facility] [address] [place] [address] AVE [id number], [place] [id number] Nov, [facility] [address] [place] [address] AVE [id number], [place] [id number] Nov, Dental examination Z01.20 [facility] [id number], [place] [id number] Nov, Benign essential hypertension I10 ; Hist ory of gastric bypass Z98.890 and Nausea and vomiting in adult R11.2 [facility] [place] [address] [facility] [id number] [address] [place] [id number] 13 Nov, 2016 Major depressive disorder, r ecurrent, moderate F33.1 ; Generalized anxiety disorder F41.1 and Insomnia due to other mental disorder F51.05 [place] [address] [facility] [id number] [address] [place] [address] 12 Nov, 2016 Recurrent major depressive d isorder, in partial remission F33.41 ; Insomnia G47.00 and Morbid obesity E66.01 [facility] [address] [id number] Kiesha ESCOBEDO S [id number] October, Abscess of left arm L02.414 [place] [address] [facility] [id number] [address] [place] [address] October, Morbid obesity E66.01 ; Lida r depression F32.9 and Recurrent major depressive disorder, in partial remission F33.[address] [place] [address] [id number], [place] [id number] Sep, Benign essential hypertension I10 ; Morb id obesity E66.01 ; S/P gastric bypass Z98.84 ; Abscess L02.91 and Chronic bacterial conjunctivitis of left eye H10.[address] [id number], [place] [id number] Sep, Dental examination Z01.20 [place] [address] [place] [address] Sep, Morbid obesity E66.01 ; Lida r depression F32.9 and Recurrent major depressive disorder, in partial remission F33.41 [place] [address] [place] [address] Jul, [place] [address] [place] [id number] [place] [address] Jul, Major depressive disorder, r ecurrent, moderate F33.1 [place] [address] [address] [place] [id number] [place] [phone] Jul, Major depressive disorder, r ecurrent, moderate F33.1 and Generalized anxiety disorder F41.[address] [place] [address] [id number] [id number] Jul, Cough R05 [place] [address] [address] [place] [id number] [place] [id number] 16 Jul, 2016 Morbid obesity E66.01 ; Lida r depression F32.9 and Recurrent major depressive disorder, in partial remission F33.[address] [facility] [address] [address] [id number] [id number] Jul, [facility] [address] [id number][place] [id number] Jul, [facility] [address] [id number][place] [id number] Jul, Gastroenteritis K52.9 and Cough R05 [facility] [id number] [place] [id number] Jun, Acute bacterial conjunctivitis of left e ye H10.32 [place] [address] [address] [facility] [id number] [address] [place] [id number] Jun, [place] [address] [address] [place] [id number] [address] [place] [id number] Jun, Recurrent major depressive d isorder, in partial remission F33.41 [place] [address] [address] [place] [id number] [place] [id number] May, Major depression F32.9 and M orbid obesity E66.01 [place] [address] [address] [facility] [id number] [address] [place] [id number] May, [facility] [address] [facility] [id number] [place] [id number] May, Thrush B37.0 [facility] [place] [address] [place] [id number] [address] [place] [address] Apr, Major depressive disorder, r ecurrent, moderate F33.1 [facility] [place] [address] [facility] [id number] [address] [place] [address] Apr, Insomnia G47.00 ; Major depr ession F32.9 and Recurrent major depressive disorder, in partial remission F33.41 [facility] [place] [address] [facility] [id number] [address] [place] [id number] Apr, [facility] [place] [address] [facility] [id number] [address] [place] [address] Apr, Major depression F32.9 and R ecurrent major depressive disorder, in partial remission F33.[address] [address] [id number][place] [id number] Mar, Benign essential hypertension I10 ; Morb id obesity E66.01 ; Impacted cerumen of both ears H61.23 ; Laceration of finger of right hand, initial encounter S61.219A and Encounter for immunization Z23 [facility] [place] [address] [facility] [id number] [address] [place] [id number] Mar, [facility] [place] [address] [facility] [id number] [address] [place] [phone] Mar, [facility] [place] [address] [facility] [id number] [address] [place] [address] Mar, [id number] [place] [id number] Feb, Nausea R11.0 ; Blood in the stool K92.1 and Benign essential hypertension I10 [facility] [place] [address] [facility] [id number] [address] [place] [address] Feb, Major depression F32.9 and R ecurrent major depressive disorder, in partial remission F33.41 [place] [address] [facility] [address] [id number][place] [id number] Feb, [place] [address] [id number][place] [id number] Feb, Recurrent major depressive disorder, in partial remission F33.[address] [address] [id number][place] [id number] Jan, [place] [address] [id number][place] [id number] Jan, Benign essential hypertension I10 ; Robert a R60.9 and Hyperlipidemia, unspecified hyperlipidemia type E78.[address] [place] [address] [id number][place] [id number] Jan, Recurrent major depressive disorder, in partial remission F33.41 [facility] [address] [id number] Kiesha ESCOBEDO S [id number] Jan, [facility] [address] [id number][place] [id number] Jan, [facility] [address] [id number][place] [id number] Jan, [facility] [place] [address] [facility] [id number] [address] [place] [id number] Jan, [facility] [place] [address] [facility] [id number] [address] [place] [id number] Dec, [facility] [place] [address] [facility] [id number] [address] [place] [id number] Nov, [facility] [place] [address] [facility] [id number] [address] [place] [id number] Nov, Major depression F32.9 [facility] [place] [address] [facility] [id number] [address] [place] [id number] Nov, [facility] [place] [address] [facility] [id number] [address] [place] [id number] Nov, [facility] [place] [address] [facility] [id number] [address] [place] [id number] Nov, Major depressive disorder, r ecurrent episode, mild F33.0 and Anxiety F41.9 [facility] [address] [id number], [place] [id number] Nov, [facility] [address] [id number], [place] [id number] October, Left elbow pain M25.522 and Other season al allergic rhinitis J30.2 [facility] [address] [id number], [place] [id number] October, [facility] [place] [address] [facility] [id number] [address] [place] [id number] October, Major depressive disorder, r ecurrent, moderate F33.1 [facility] [place] [address] [facility] [id number] [address] [place] [phone] October, Major depression F32.9 [facility] [place] [address] [facility] [id number] [address] [place] [phone] Sep, [place] or callus L84 and Onych omycosis B35.1 [facility] [place] [address] [facility] [id number] [address] [place] [id number] Sep, Major depressive disorder, r ecurrent, moderate F33.1 [facility] [place] [address] [facility] [id number] [address] [place] [address] Sep, Major depression F32.9 [facility] [place] [address] [facility] [id number] [address] [place] [phone] Sep, Moderate episode of recurren t major depressive disorder F33.1 [facility] [address] [id number][place] [id number] Sep, Muscle strain T14.8 [facility] [place] [address] [facility] [id number] [address] [place] [phone] Aug, Major depression F32.9 [facility] [place] [address] [facility] [id number] [address] [place] [id number] Aug, Major depression F32.9 [facility] [place] [address] [facility] [id number] [address] [place] [address] Jul, Morbid obesity E66.01 and Ma cora depression F32.9 [facility] [place] [address] [facility] [id number] [address] [place] [id number] Jul, Depression, major, recurrent , moderate F33.1 [facility] [id number] [place] [address] [id number] Jul, [facility] [place] [address] [facility] [id number] [address] [place] [id number] Jul, [facility] [place] [address] [facility] [id number] [address] [place] [id number] 16 Jul, 2015 Major depression F32.9 and M orbid obesity E66.01 [address] [id number], [place] [id number] 11 Jul, 2015 Type II diabetes mellitus E11.9 ; Callus of foot L84 ; Benign essential hypertension I10 and Renal insufficiency N28.9 [place] [address] [place] [id number] [address] [place] [id number] 09 Jul, 2015 Depression, major, recurrent , moderate F33.1 [place] [address] [facility] [id number] [address] [place] [address] Jul, Major depression F32.9 [place] [address] [place] [id number] [place] [id number] Jul, [place] [id number] [place] [phone] Jun, Major depression F32.9 [place] [address] [facility] [id number] [address] [place] [id number] Jun, Major depressive disorder, r ecurrent, moderate F33.1 [place] [address] [place] [id number] [place] [phone] Jun, [place] [address] [place] [id number] [place] [address] Jun, Major depressive disorder, r ecurrent, moderate F33.1 and Major depression F32.[address] [id number], [place] [id number] Jun, Type II diabetes mellitus E11.9 [place] [address] [facility] [id number] [address] [place] [id number] Jun, Depression, major, recurrent , moderate F33.1 [place] [address] [facility] [id number] [address] [place] [phone] May, Major depressive disorder, r ecurrent, moderate F33.1 [facility] [place] [address] [facility] [id number] [address] [place] [address] May, [id number] [place] [address] [id number] May, Edema R60.9 [facility] [place] [address] [facility] [id number] [address] [place] [address] May, Insomnia G47.00 and Major de pression F32.[id number] [place] [address] [id number] May, Morbid obesity E66.01 ; Edema R60.9 ; Sh ortness of breath R06.02 ; Benign essential hypertension I10 and Renal insufficiency N28.[id number] [place] [address] [id number] May, Hyperlipemia 272.4 and Renal insufficien cy N28.9 [place] [address] [facility] [id number] [address] [place] [address] Apr, Major depression F32.9 [place] [address] [place] [id number] [place] [address] Apr, [place] [address] [place] [id number] [place] [address] Apr, Major depressive disorder, r ecurrent, moderate F33.[id number] [place] [address] [id number] Apr, Type II diabetes mellitus E11.9 ; Benign essential hypertension I10 ; Edema R60.9 and Renal insufficiency N28.9 [place] [address] [facility] [id number] [address] [place] [address] Mar, Major depressive disorder, r ecurrent, moderate F33.1 [place] [address] [facility] [id number] [address] [place] [id number] Mar, [facility] [place] [address] [facility] [id number] [address] [place] [address] Mar, Major depression F32.[address] [place] [id number] [place] [address] [id number] Mar, Morbid obesity E66.01 ; Benign essential hypertension I10 and Type II diabetes mellitus E11.9 [place] [address] [facility] [id number] [address] [place] [id number] Feb, Major depressive disorder, r ecurrent, moderate F33.1 [place] [address] [place] [id number] [place] [phone] Feb, Major depressive disorder, r ecurrent episode, in partial or unspecified remission 296.35 ; Anxiety state, unspecified 300.00 and Morbid obesity 278.01 [place] [address] [facility] [id number] [address] [place] [id number] Feb, [id number] [place] [address] [id number] 16 Feb, 2015 Vomiting 787.03 and Viral syndrome 079.9 9 [place] [address] [facility] [id number] [address] [place] [address] 15 Feb, 2015 Major depression, recurrent 296.30 ; Generalized anxiety disorder 300.02 and No condition on Kewadin II V71.[id number] [place] [address] [id number] 03 Feb, 2015 Skin tag 701.[address] [id number] [address] [place] [phone] Feb, [place] [address] [facility] [id number] [address] [place] [address] Jan, Depression, major, recurrent , moderate 296.[id number] [place] [address] [id number] Jan, Nausea and vomiting 787.01 ; Rib pain on right side 786.50 and Fall on or from sidewalk curb E880.1 [place] [address] [facility] [id number] [address] [place] [address] Jan, [facility] [place] [address] [facility] [id number] [address] [place] [phone] Jan, Major depressive disorder, r ecurrent episode, in partial or unspecified remission 296.35 and Anxiety state, unspecified 300.00 [facility] [address] [place] [address] AVE [id number], [place] [id number] Jan, [facility] [place] [address] [place], [place] [id number] [address] [place] [address] Jan, Depression, major, recurrent , moderate 296.[address] [address] Jan, Major depression, recurrent 296.30 ; No condition on Kewadin II V71.09 and No condition on axis III V71.09 [facility] [address] [place], [place] [address] [id number], [place] [id number] Jan, Drug-induced nausea and vomiting 787.01 [place] [id number] [address] [place] [address] Jan, Depression, major, recurrent , moderate 296.32 [place] [id number] [place] [address] Dec, Depression, major, recurrent , moderate 296.32 [facility] [address] [place], [place] [address] [id number], [place] [id number] Dec, Morbid obesity 278.01 ; Metabolic syndro me 277.7 ; Hyperlipemia 272.4 ; Benign essential hypertension 401.1 ; Dietary counseling V65.3 ; Exercise counseling V65.41 and Inflamed skin tag 701.9 [place] [id number] [place] [address] Dec, Depression, major, recurrent , moderate 296.32 [place] [id number] [place] [id number] Dec, [address] [place] [address] Dec, Major depression, recurrent 296.30 ; Anxiety, generalized 300.02 and No condition on Kewadin II V71.09 [place] [address] [place] [id number] Dec, Depression, major, recurrent , moderate 296.32 [place] [address] [place] [id number] Dec, Major depressive disorder, r ecurrent episode, moderate 296.32 [place] [address] [place] [id number] Dec, Depression, major, recurrent , moderate 296.32 [place] [address] [place] [id number] Dec, Depression, major, recurrent , moderate 296.32 [place] [address] [place] [id number] Dec, Depression, major, recurrent , moderate 296.32 [place] [address] [address] Dec, Depression, major, recurrent , moderate 296.32 [place] [address] [phone] Nov, Depression, major, recurrent , moderate 296.32 [place] [address] [address] Nov, Major depression 296.20 ; So cial phobia 300.23 and No condition on Kewadin II V71.09 [place] [address] [place] [id number] Nov, Depression, major, recurrent , moderate 296.32 [place] [address] [place] [id number] Nov, Major depressive disorder, r ecurrent episode, moderate 296.32 and Generalized anxiety disorder 300.02 [place] [address] [place] [id number] [place] [id number] 09 Nov, 2014 Depression, major, recurrent , moderate 296.32 [facility] [place] [address] [id number] [address] [place] [phone] 04 Nov, 2014 Depression, major, recurrent , moderate 296.32 [facility] [place] [address] [facility] [id number] [address] [place] [address] October, Generalized anxiety disorder 300.02 ; No condition on Kewadin II V71.09 and Major depressive disorder, recurrent 296.30 [facility] [place] [address] [id number] [address] [place] [id number] Sep, [facility] [place] [address] [id number] [address] [place] [phone] Sep, [facility] [place] [address] [id number] [address] [place] [id number] Aug, [facility] [place] [address] [id number] [address] [place] [phone] 24 Aug, 2014 [facility] [place] [address] [id number] [address] [place] [phone] Aug, [facility] [place] [address] [id number] [address] [place] [address] Aug, [facility] [place] [address] [id number] [address] [place] [phone] Aug, [facility] [address] [id number] [address] [place] [phone] Aug, [facility] [address] [id number] [address] [place] [id number] Aug, [facility] [address] [id number] [address] [place] [phone] Aug, [facility] [address] [id number] [address] [place] [id number] Aug, [facility] [place] [address] [id number] [address] [place] [id number] 13 Aug, 2014 [facility] [address] [id number] [address] [place] [address], [place] [address] 13 Aug, 2014 [facility] [address] [id number] [address] [place] [address], [place] [address] 13 Aug, 2014 [facility] [address] [id number] [address] [place] [address], [place] [address] Aug, [facility] [address] [id number] [address] [place] [address], [place] [address] Aug, [facility] [address] [id number] [address] [place] [address], [place] [address] Aug, [facility] [address] [id number] [address] [place] [address], [place] [address] Aug, [facility] [address] [id number] [address] [place] [address], [place] [address] Aug, [facility] [address] [id number] [address] [place] [address], [place] [address] Aug, [facility] [address] [id number] [address] [place] [address], [place] [address] Jul, [facility] [address] [id number] [address] [place] [address], [place] [address] Jul, [facility] [address] [id number] [address] [place] [address], [place] [address] Jul, 2014 [facility] [address] [id number] [address] [place] [address], [place] [address] Jul, 2014 [facility] [address] [id number] [address] [place] [address], [place] [address] Jul, [facility] [address] [id number] [address] [place] [address], [place] [address] Jul, 2014 [facility] [address] [id number] [address] [place] [address], [place] [address] Jun, [facility] [address] [id number] [address] [place] [address], [place] [address] Jun, [facility] [address] [id number] [address] [place] [address], [place] [address] Jun, [facility] [address] [id number] [address] [place] [address], [place] [address] Jun, [facility] [address] [id number] [address] [place] [address], [place] [address] Jun, [facility] [address] [id number] [address] [place] [address], [place] [address] Jun, [facility] [address] [id number] [address] [place] [address], [place] [address] Jun, [facility] [address] [id number] [address] [place] [address], [place] [address] Jun, [facility] [address] [id number] [address] [place] [address], [place] [address] Jun, [facility] [address] [id number] [address] [place] [address], [place] [address] Jun, [facility] [address] [id number] [address] [place] [address], [place] [address] Jun, [facility] [address] [id number] [address] [place] [address], [place] [address] Jun, [facility] [address] [id number] [place] [id number] Jun, [facility] [address] [id number] [address] [place] [address], [place] [address] Jun, [facility] [address] [id number] [address] [place] [address], [place] [address] Jun, [facility] [address] [id number] [address] [place] [address], [place] [address] Jun, [facility] [address] [id number] [address] [place] [id number] May, [facility] [address] [id number] [address] [place] [address], [place] [address] May, [facility] [address] [id number] [address] [place] [address], [place] [address] May, [facility] [address] [id number] [address] [place] [address], [place] [address] May, [facility] [address] [id number] [address] [place] [address], [place] [address] Apr, [facility] [address] [id number] [address] [place] [address], [place] [address] Apr, [facility] [address] [id number] [address] [place] [address], [place] [address] Apr, [facility] [address] [id number] [address] [place] [address], [place] [address] Apr, [facility] [address] [id number] [address] [place] [id number] Apr, [facility] [address] [id number] [address] [place] [address], [place] [address] Apr, [facility] [address] [id number] [address] [place] [address], [place] [address] Apr, [facility] [address] [id number] [address] [place] [id number] Apr, [facility] [address] [id number] [address] [place] [address] Apr, [facility] [address] [id number] [address] [place] [address], [place] [address] Apr, [facility] [address] [id number] [address] [place] [id number] Apr, [facility] [address] [id number] [address] [place] [id number] Apr, [facility] [address] [id number] [address] [place] [address], [place] [address] Apr, [facility] [address] [id number] [address] [place] [address], [place] [address] Apr, [facility] [address] [id number] [address] [place] [address], [place] [address] Apr, [facility] [address] [id number] [address] [place] [address], [place] [address] Apr, [facility] [address] [id number] [address] [place] [address], [place] [address] Apr, [facility] [address] [id number] [address] [place] [address], [place] [address] Apr, [facility] [address] [id number] [address] [place] [address], [place] [address] Apr, [facility] [address] [id number] [address] [place] [address], [place] [address] Apr, [facility] [address] [id number] [address] [place] [address], [place] [address] Mar, [facility] [address] [id number] [address] [place] [address], [place] [address] Mar, [facility] [address] [id number] [address] [place] [address], [place] [address] Mar, [facility] [address] [id number] [address] [place] [address], [place] [address] Mar, [facility] [address] [id number] [address] [place] [address], [place] [address] Mar, [facility] [address] [id number] [address] [place] [address], [place] [address] Mar, [facility] [address] [id number] [address] [place] [address], [place] [address] Mar, [facility] [address] [id number] [address] [place] [address], [place] [address] Mar, [facility] [address] [id number] [address] [place] [address], [place] [address] Mar, [facility] [address] [id number] [address] [place] [address], [place] [address] Mar, [facility] [address] [id number] [address] [place] [address], [place] [address] Feb, [facility] [address] [id number] [address] [place] [address], [place] [address] Feb, [facility] [address] [id number] [address] [place] [address], [place] [address] Feb, [facility] [address] [id number] [address] [place] [address], [place] [address] Feb, [facility] [address] [id number] [address] [place] [address], [place] [address] Jan, [facility] [address] [id number] [address] [place] [address], [place] [address] Jan, [facility] [address] [id number] [address] [place] [address], [place] [address] Jan, [facility] [address] [id number] [address] [place] [address], [place] [address] Jan, [facility] [address] [id number] [address] [place] [address], [place] [address] Jan, [facility] [address] [id number] [address] [place] [address], [place] [address] Jan, [facility] [address] [id number] [address] [place] [address], [place] [address] Dec, [facility] [address] [id number] [address] [place] [address], [place] [address] Dec, [facility] [address] [id number] [address] [place] [address], [place] [address] Nov, [facility] [address] [id number] [address] [place] [address], [place] [address] Nov, [facility] [address] [id number] [facility] [place] [address] Nov, [facility] [address] [id number] [address] [place] [address], [place] [address] Nov, [facility] [address] [id number] [address] [place] [address], [place] [address] Nov, [facility] [address] [id number] [address] [place] [address], [place] [address] Nov, [facility] [address] [id number] [address] [place] [address], [place] [address] Sep, [facility] [address] [id number] [address] [place] [address], [place] [address] Sep, [facility] [address] [id number] [address] [place] [address], [place] [address] Sep, [facility] [address] [id number] [address] [place] [address], [place] [address] Sep, [facility] [address] [id number] [address] [place] [address], [place] [address] Aug, [facility] [address] [id number] [address] [place] [address], [place] [address] Aug, [facility] [address] [id number] [address] [place] [address], [place] [address] Jul, [facility] [address] [id number] [address] [place] [address], [place] [address] Jul, [facility] [address] [id number] [address] [place] [address], [place] [address] Jun, [facility] [address] [id number] [address] [place] [address], [place] [address] Jun, [facility] [address] [id number] [address] [place] [address], [place] [address] Jun, [facility] [address] [id number] [address] [place] [address], [place] [address] 16 Jun, 2013 [facility] [address] [id number] [address] [place] [address], [place] [address] May, [facility] [address] [id number] [address] [place] [address], [place] [address] May, [facility] [address] [id number] [address] [place] [address], [place] [address] May, [facility] [address] [id number] [address] [place] [address], [place] [address] May, [facility] [address] [id number] [address] [place] [address], [place] [address] May, [facility] [address] [id number] [address] [place] [address], [place] [address] May, [facility] [address] [id number] [address] [place] [address], [place] [address] Apr, [facility] [address] [id number] [address] [place] [address], [place] [address] Apr, [facility] [address] [id number] [address] [place] [address], [place] [address] Apr, [facility] [address] [id number] [address] [place] [address], [place] [address] Apr, [facility] [address] [id number] [address] [place] [address], [place] [address] Mar, [facility] [address] [id number] [address] [place] [address], [place] [address] Mar, [facility] [address] [id number] [address] [place] [address], [place] [address] Mar, [facility] [address] [id number] [address] [place] [address], [place] [address] Mar, [facility] [address] [id number] [address] [place] [address], [place] [address] Feb, [facility] [address] [id number] [id number] Jan, [facility] [place] [address] [id number] [address] [place] [id number] Jan, [facility] [place] [address] [id number] [address] [place] [address] Dec, [facility] [place] [address] [id number] [address] [place] [address] Dec, [facility] [place] [address] [id number] [address] [place] [address] Dec, [facility] [address] [id number] [place] [id number] Dec, [facility] [place] [address] [id number] [address] [place] [address] Nov, [facility] [place] [address] [id number] [address] [place] [address] Nov, [facility] [place] [address] [id number] [address] [place] [address] Nov, [facility] [place] [address] [id number] [address] [place] [address] Nov, [facility] [place] [address] [id number] [address] [place] [id number] Nov, [facility] [place] [address] [id number] [address] [place] [id number] October, [facility] [place] [address] [id number] [address] [place] [id number] October, [facility] [place] [address] [id number] [address] [place] [id number] Aug, [facility] [place] [address] [id number] [address] [place] [id number] 13 Nov, 2011 IMMUNIZATIONS No Known Immunizations [...]
--- OUTSIDE RECORDS SUMMARY | 2019-11-29 09:15 | XMS REPORT ---
Author Author Curt Hughes [facility] Address [address], [place] [id number] Care Team Providers Care Matrix Repairer Name Role Phone Saul [facility] Unavailable PROBLEMS Type Condition ICD9-CM Code OOE30-XJ Code Onset Dates Condition S tatus SNOMED Code Problem Insomnia G47.00 Active 003121682 Problem Benign essential hypertension I10 Active 7751486 Problem Hyperlipemia E78.5 Active 2182339 4 Problem Edema R60.9 Active 097710467 Problem Morbid obesity E66.01 Active 56439 6002 Problem Severe episode of recurrent major depressive disorder, without psychotic features F33.2 Active 59625986 Problem Vitamin D deficiency E55.9 Active 21023005 Problem Mixed obsessional thoughts and acts F42.2 Active 13840883 Problem Chronic fatigue R53.82 Active 8422 9001 Problem Metabolic syndrome E88.81 Active 2 18661419 Problem Other chronic pain G89.29 Active 8 2544207 Problem Renal insufficiency N28.9 Active 700233144 Problem BMI 45.0-49.9, adult Z68.42 Active 224687486 Problem DANIELA (generalized anxiety disorder) F41.1 Active 74655091 Problem Sciatica, right side M54.31 Active [id number] Problem 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 [id number] [address] [place] [phone] Jan, [facility] [address] [place] [address] [id number] [place] [id number] Jan, [facility], [place] [address] [facility] [id number] [address] [place] [phone] Dec, Severe episode of recurrent major depressive disorder, without psychotic features F33.2 [facility], [place] [address] 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 [facility] [id number][place] [id number] Dec, Morbid obesity E66.01 [facility], [place] [address] [facility] [id number] [address] [place] [phone] Dec, [facility], [place] [address] [facility] [id number] [address] [place] [phone] Dec, [address] [id number] Nov, [facility] [address] [facility] [facility] [id number], [place] [id number] Nov, [facility], [place] [address] [facility] [id number] [address] [place] [phone] Nov, [facility], [place] [address] [facility] [id number] [address] [place] [phone] Nov, [facility], [place] [address] 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 [id number], [place] [id number] Nov, Morbid obesity E66.01 [facility], [place] [address] [facility] [id number] [address] [place] [phone] Nov, [facility], [place] [address] 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 [address] [id number], [place] [id number] October, Morbid obesity E66.01 [facility] [address] [id number], [place] [id number] October, Benign essential hypertension I10 and Mo rbid obesity E66.01 [facility] Bender[address] [place] [address] [id number] [place] [address] [id number] October, [facility], [place] [address] [place] [id number] [address] [place] [phone] October, Severe episode of recurrent major depressive disorder, without psychotic features F33.2 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 [id number] [address] [place] [address] [id number] Sep, Dental examination Z01.20 [facility] Yulia[address] [place] [address] [place] [id number] [place] [address] [id number] Sep, [facility] [address] [place] [id number] [address] [place] [phone] Sep, Sore in mouth K13.79 and Mor bid obesity E66.01 [facility], [place] [address] [place] [id number] [address] [place] [phone] Sep, Dental examination Z01.20 [facility], [place] [address] 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 [facility] [address] [id number], [place] [id number] Aug, Mouth abscess K12.2 ; Mouth ulcer K12.1 ; Bloating R14.0 and Morbid obesity E66.01 [facility] [address] [id number], [place] [id number] Aug, [facility] [id number], [place] [id number] Aug, [facility] [place] [address] [id number], [place] [id number] Jul, Major depressive disorder, recurrent, mo derate F33.1 ; Abscess of arm, left L02.414 ; BMI 45.0-49.9, adult Z68.42 and Morbid obesity E66.01 [facility] [place] [address] [id number], [place] [id number] Jul, [facility] [id number], [place] [id number] Jul, [facility] [place] [address] [id number], [place] [id number] Jun, Pain in right knee M25.561 and Other chr onic pain G89.29 [facility] [address] [id number], [place] [id number] Jun, Benign essential hypertension I10 ; BMI 45.0-49.9, adult Z68.42 ; Morbid obesity E66.01 ; Vitamin D deficiency E55.9 ; Insomnia G47.00 ; 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 [id number] [address] [place] [phone] Jun, [facility] [id number], [place] [id number] Jun, Irritable mood R45.4 [facility], [place] [address] [facility] [id number] [address] [place] [phone] May, [facility], [place] [address] [facility] [id number] [address] [place] [phone] May, [facility], [place] [address] 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 [id number] [address] [place] [phone] Apr, [facility], [place] [address] [facility] [id number] [address] [place] [phone] Apr, [facility], [place] [address] [facility] [id number] [address] [place] [phone] 14 Apr, 2018 [facility], [place] [address] [facility] [id number] [address] [place] [phone] Apr, [place] [address] [facility] [id number] [address] [place] [phone] Mar, Mixed obsessional thoughts a nd acts F42.2 ; Recurrent major depressive disorder, in partial remission F33.41 ; DANIELA (generalized anxiety disorder) F41.1 and BMI 45.0-49.9, adult Z68.42 [facility] [place] [address] [id number], [place] [id number] Mar, [facility] [place] [address] [id number], [place] [id number] Mar, BMI 45.0-49.9, adult Z68.42 ; Instabilit y of right knee joint M25.361 and Rash R21 [place] [address] [facility] [id number] [address] [place] [address] Jan, Recurrent major depressive d isorder, in partial remission F33.41 ; Mixed obsessional thoughts and acts F42.2 and BMI 45.0-49.9, adult Z68.[address] [place] [address] [id number], [place] [id number] Jan, [facility] [place] [address] [id number], [place] [id number] Jan, Benign essential hypertension I10 ; BMI 45.0-49.9, adult Z68.42 ; Metabolic syndrome E88.81 and Allergic rhinitis, unspecified seasonality, unspecified trigger J30.9 [place] [address] [facility] [id number] [address] [place] [id number] Dec, DANIELA (generalized anxiety dis order) F41.1 and Depressive disorder, not elsewhere classified F32.9 [facility] [place] [address] [id number], [place] [id number] Dec, Recurrent major depressive disorder, in partial remission F33.41 [facility] [address] [address] [id number], [place] [id number] Dec, [facility] [place] [address] [id number], [place] [id number] Nov, [facility] [address] [address] [id number], [place] [id number] Nov, Recurrent major depressive disorder, in partial remission F33.41 [facility], [place] [address] [facility] [id number] [address] [place] [phone] Nov, Recurrent major depressive d isorder, in partial remission F33.41 ; Mixed obsessional thoughts and acts F42.2 ; DANIELA (generalized anxiety disorder) F41.1 and BMI 45.0-49.9, adult Z68.42 [facility] [address] [id number], [place] [id number] Nov, [facility] [address] [address] [id number], [place] [id number] Nov, Other conjunctivitis of both eyes H10.89 and Sciatica, right side M54.31 [facility] [address] [address] [id number], [place] [id number] Nov, [facility] [place] [address] [id number], [place] [id number] Nov, [facility] [place] [address] [id number], [place] [id number] October, [facility] [address] [address] [id number], [place] [id number] October, [facility], [place] [address] [facility] [id number] [address] [place] [phone] October, BMI 45.0-49.9, adult Z68.42 ; Mixed obsessional thoughts and acts F42.2 ; Recurrent major depressive disorder, in partial remission F33.41 and DANIELA (generalized anxiety disorder) F41.1 [facility] [address] [address] [id number], [place] [id number] October, Benign essential hypertension I10 ; Morb id obesity E66.01 and BMI 45.0-49.9, adult Z68.[address] [facility] [address] [address] [id number], [place] [id number] Sep, [facility] [address] [id number], [place] [id number] Sep, [facility] [place] [address] [place] [address] AVE [id number], [place] [id number] Sep, [facility] [address] [id number], [place] [id number] Sep, Hospital discharge follow-up Z09 ; Aller gic rhinitis, unspecified seasonality, unspecified trigger J30.9 and Shortness of breath R06.[address] [id number], [place] [id number] Sep, Recurrent major depressive disorder, in partial remission F33.41 [facility] [address] [id number], [place] [id number] Aug, Irritable mood R45.4 [place] [address] [place] [address] Aug, [facility] [address] [id number], [place] [id number] Jul, Benign essential hypertension I10 ; Robert a R60.9 and Impacted cerumen of left ear H61.22 [place] [address] [place] [phone] Jul, Major depression F32.9 ; Rec urrent major depressive disorder, in partial remission F33.41 and Anxiety F41.9 [place] [address] [place] [id number] [address] [place] [address] Jun, Major depression F32.9 ; Rec urrent major depressive disorder, in partial remission F33.41 and Anxiety F41.9 [facility] [address] [id number], [place] [id number] Jun, Major depression F32.9 ; Morbid obesity E66.01 ; Irritable mood R45.4 ; Hand weakness R29.898 and Vitamin D deficiency E55.9 [facility] [address] [id number], [place] [id number] Jun, [facility] [address] [address] [id number], [place] [id number] May, Major depression F32.9 [place] [address] [place] [id number] [address] [place] [address] May, Major depression F32.9 [facility] [address] [id number], [place] [id number] May, BMI 50.0-59.9, adult Z68.43 ; Major depr ession F32.9 ; Anxiety F41.9 ; Hypertrophic toenail L60.2 and Pain of left great toe M79.[address] [place] [id number] [place] [address] [id number] May, Recurrent major depressive disorder, in partial remission F33.41 [place] [address] [place] [id number] [address] [place] [phone] Apr, [place] [address] [id number] [place] [address] [id number] Apr, [facility], [place] [address] [facility] [id number] [address] [place] [phone] Apr, Major depression F32.[address] [place] [id number] [place] [address] [id number] Apr, Severe episode of recurrent major depres sive disorder, without psychotic features F33.2 ; Anxiety F41.9 and Insomnia G47.00 [facility] [id number] [place] [address] [id number] Apr, [facility], [place] [address] [facility] [id number] [address] [place] [phone] Apr, [facility] [id number] [place] [address] [id number] Apr, [facility] [address] [id number], [place] [id number] Mar, [facility] [address] [address] [id number], [place] [id number] Mar, Allergic conjunctivitis of both eyes H10 .13 [facility], [place] [address] [facility] [id number] [address] [place] [address] Mar, Major depression F32.9 [facility] [address] [id number], [place] [id number] Mar, Metabolic syndrome E88.81 ; History of g astric bypass Z98.890 ; Benign essential hypertension I10 ; Allergic conjunctivitis of both eyes H10.13 and Morbid obesity E66.01 [facility], [place] [address] [facility] [id number] [address] [place] [phone] Mar, Major depression F32.[address] [place] [address] [facility] [address] [id number], [place] [id number] Feb, [facility], [place] [address] [facility] [id number] [address] [place] [address] Feb, Major depression F32.[address] [place] [address] [facility] [address] [id number], [place] [id number] Feb, Subacute maxillary sinusitis J01.00 and Bronchitis J40 [place] [address] [facility] [id number] [address] [place] [id number] Feb, Major depressive disorder, r ecurrent, moderate F33.1 [facility] [address] [id number], [place] [id number] Jan, [facility] [address] [id number], [place] [id number] Jan, Acute non-recurrent maxillary sinusitis J01.00 and Skin tag L91.8 [facility] [address] [id number], [place] [id number] Jan, Cough R05 and Sinus congestion R09.81 [facility] [address] [id number], [place] [id number] Jan, [facility] [id number], [place] [id number] Jan, Benign essential hypertension I10 ; Hist ory of gastric bypass Z98.890 and Nausea and vomiting in adult R11.2 [facility], [place] [address] [facility] [id number] [address] [place] [phone] 04 Jan, 2017 Major depressive disorder, r ecurrent, moderate F33.1 [place] [address] [facility] [id number] [address] [place] [id number] Dec, Insomnia G47.00 ; Recurrent major depressive disorder, in partial remission F33.41 and Morbid obesity E66.01 [facility] [address] [place] [address] A[address] [id number], [place] [id number] Dec, [facility] [id number] [place] [address] [id number] Dec, Chronic bacterial conjunctivitis of left eye H10.402 [facility] [address] [id number], [place] [id number] Nov, [facility] [id number], [place] [id number] Nov, Dental examination Z01.20 [facility] [address] [id number], [place] [id number] Nov, Benign essential hypertension I10 ; Hist ory of gastric bypass Z98.890 and Nausea and vomiting in adult R11.2 [facility], [place] [address] [facility] [id number] [address] [place] [phone] 13 Nov, 2016 Major depressive disorder, r ecurrent, moderate F33.1 ; Generalized anxiety disorder F41.1 and Insomnia due to other mental disorder F51.05 [facility], [place] [address] [facility] [id number] [address] [place] [phone] 12 Nov, 2016 Recurrent major depressive d isorder, in partial remission F33.41 ; Insomnia G47.00 and Morbid obesity E66.01 [facility] [address] [id number] FANNYKiesha S [id number] October, Abscess of left arm L02.414 [place] [address] [facility] [id number] [address] [place] [phone] October, Morbid obesity E66.01 ; Lida r depression F32.9 and Recurrent major depressive disorder, in partial remission F33.41 [facility] [id number] [place] [address] [id number] Sep, Benign essential hypertension I10 ; Morb id obesity E66.01 ; S/P gastric bypass Z98.84 ; Abscess L02.91 and Chronic bacterial conjunctivitis of left eye H10.402 [facility] [id number] [place] [address] [id number] Sep, Dental examination Z01.20 [place] [address] [place] [id number] [place] [id number] Sep, Morbid obesity E66.01 ; Lida r depression F32.9 and Recurrent major depressive disorder, in partial remission F33.41 [place] [address] [id number] Jul, [place] [address] [id number] Jul, Major depressive disorder, r ecurrent, moderate F33.1 [place] [id number] [place] [id number] Jul, Major depressive disorder, r ecurrent, moderate F33.1 and Generalized anxiety disorder F41.1 [facility] [id number] [place] [address] [id number] Jul, Cough R05 [place] [address] [address] [place] [id number] [address] [place] [phone] 16 Jul, 2016 Morbid obesity E66.01 ; Lida r depression F32.9 and Recurrent major depressive disorder, in partial remission F33.[address] [facility] [address] [id number] [id number] Jul, [facility] [place] [address] [id number] [id number] Jul, [facility] [address] [id number] [place] [id number] Jul, Gastroenteritis K52.9 and Cough R05 [facility] [place] [id number] [place] [id number] Jun, Acute bacterial conjunctivitis of left e ye H10.32 [facility] [place] [address] [facility] [id number] [address] [place] [id number] Jun, [facility] [place] [address] [facility] [id number] [address] [place] [id number] Jun, Recurrent major depressive d isorder, in partial remission F33.41 [facility] [place] [address] [facility] [id number] [address] [place] [phone] May, Major depression F32.9 and M orbid obesity E66.01 [facility] [place] [address] [facility] [id number] [address] [place] [phone] May, [facility] [address] [facility] [id number] [place] [id number] May, Thrush B37.0 [facility] [place] [address] [facility] [id number] [address] [place] [phone] Apr, Major depressive disorder, r ecurrent, moderate F33.1 [facility] [facility], [place] [address] [facility] [id number] [address] [place] [address] Apr, Insomnia G47.00 ; Major depr ession F32.9 and Recurrent major depressive disorder, in partial remission F33.41 [facility], [place] [address] [facility] [id number] [address] [place] [address] Apr, [facility], [place] [address] [facility] [id number] [address] [place] [address] Apr, Major depression F32.9 and R ecurrent major depressive disorder, in partial remission F33.[address] [place] [address] [id number][place] [id number] Mar, Benign essential hypertension I10 ; Morb id obesity E66.01 ; Impacted cerumen of both ears H61.23 ; Laceration of finger of right hand, initial encounter S61.219A and Encounter for immunization Z23 [facility], [place] [address] [facility] [id number] [address] [place] [id number] 17 Mar, 2016 [facility], [place] [address] [facility] [id number] [address] [place] [phone] Mar, [facility], [place] [address] [facility] [id number] [address] [place] [address] Mar, [address] [id number] [place] [address] [id number] Feb, Nausea R11.0 ; Blood in the stool K92.1 and Benign essential hypertension I10 [facility], [place] [address] [facility] [id number] [address] [place] [address] Feb, Major depression F32.9 and R ecurrent major depressive disorder, in partial remission F33.[address] [address] [facility] [address] [id number][place] [id number] Feb, [place] [address] [id number][place] [id number] Feb, Recurrent major depressive disorder, in partial remission F33.[address] [address] [id number][place] [id number] Jan, [address] [id number] [place] [address] [id number] Jan, Benign essential hypertension I10 ; Robert a R60.9 and Hyperlipidemia, unspecified hyperlipidemia type E78.[address] [id number][place] [id number] Jan, Recurrent major depressive disorder, in partial remission F33.41 [facility] [address] [id number] Kiesha ESCOBEDO S [id number] Jan, [facility] [address] [id number][place] [id number] Jan, [facility] [address] [id number], [place] [id number] Jan, [facility], [place] [address] [facility] [id number] [address] [place] [phone] Jan, [facility], [place] [address] [facility] [id number] [address] [place] [id number] Dec, [facility], [place] [address] [facility] [id number] [address] [place] [phone] Nov, [facility], [place] [address] [facility] [id number] [address] [place] [id number] Nov, Major depression F32.9 [facility], [place] [address] [facility] [id number] [address] [place] [id number] Nov, [facility], [place] [address] [facility] [id number] [address] [place] [phone] Nov, [facility], [place] [address] [facility] [id number] [address] [place] [id number] Nov, Major depressive disorder, r ecurrent episode, mild F33.0 and Anxiety F41.9 [facility] [address] [id number], [place] [id number] Nov, [facility] [address] [id number], [place] [id number] October, Left elbow pain M25.522 and Other season al allergic rhinitis J30.2 [facility] [address] [id number], [place] [id number] October, [facility], [place] [address] [facility] [id number] [address] [place] [phone] October, Major depressive disorder, r ecurrent, moderate F33.1 [facility], [place] [address] [facility] [id number] [address] [place] [phone] October, Major depression F32.9 [facility], [place] [address] [facility] [id number] [address] [place] [id number] Sep, [place] or callus L84 and Onych omycosis B35.1 [facility], [place] [address] [facility] [id number] [address] [place] [phone] Sep, Major depressive disorder, r ecurrent, moderate F33.1 [facility], [place] [address] [facility] [id number] [address] [place] [address] Sep, Major depression F32.9 [facility], [place] [address] [facility] [id number] [address] [place] [address] Sep, Moderate episode of recurren t major depressive disorder F33.1 [facility] [address] [id number], [place] [id number] Sep, Muscle strain T14.8 [facility], [place] [address] [facility] [id number] [address] [place] [phone] Aug, Major depression F32.9 [facility], [place] [address] [facility] [id number] [address] [place] [address] Aug, Major depression F32.9 [facility], [place] [address] [facility] [id number] [address] [place] [address] Jul, Morbid obesity E66.01 and Ma cora depression F32.9 [facility], [place] [address] [facility] [id number] [address] [place] [id number] Jul, Depression, major, recurrent , moderate F33.1 [facility] [address] [id number], [place] [id number] Jul, [facility], [place] [address] [facility] [id number] [address] [place] [phone] Jul, [facility], [place] [address] [facility] [id number] [address] [place] [address] 16 Jul, 2015 Major depression F32.9 and M orbid obesity E66.[address] [id number], [place] [id number] 11 Jul, 2015 Type II diabetes mellitus E11.9 ; Callus of foot L84 ; Benign essential hypertension I10 and Renal insufficiency N28.9 [place] [address] [facility] [id number] [address] [place] [address] 09 Jul, 2015 Depression, major, recurrent , moderate F33.1 [place] [address] [facility] [id number] [address] [place] [address] Jul, Major depression F32.9 [place] [address] [place] [id number] [address] [place] [address] Jul, [place] [address] [place] [id number] [address] [place] [phone] Jun, Major depression F32.9 [place] [address] [facility] [id number] [address] [place] [address] Jun, Major depressive disorder, r ecurrent, moderate F33.1 [place] [address] [place] [id number] [address] [place] [id number] Jun, [place] [address] [place] [id number] [address] [place] [address] Jun, Major depressive disorder, r ecurrent, moderate F33.1 and Major depression F32.[address] [id number], [place] [id number] Jun, Type II diabetes mellitus E11.9 [place] [address] [facility] [id number] [address] [place] [address] Jun, Depression, major, recurrent , moderate F33.1 [place] [address] [facility] [id number] [address] [place] [phone] May, Major depressive disorder, r ecurrent, moderate F33.1 [facility], [place] [address] [facility] [id number] [address] [place] [address] May, [id number] [place] [address] [id number] May, Edema R60.9 [facility], [place] [address] [facility] [id number] [address] [place] [address] May, Insomnia G47.00 and Major de pression F32.[address] [id number] [place] [address] [id number] 15 May, 2015 Morbid obesity E66.01 ; Edema R60.9 ; Sh ortness of breath R06.02 ; Benign essential hypertension I10 and Renal insufficiency N28.[address] [id number] [place] [address] [id number] May, Hyperlipemia 272.4 and Renal insufficien cy N28.9 [place] [id number] [facility] [id number] [address] [place] [phone] Apr, Major depression F32.9 [place] [address] [facility] [id number] [address] [place] [address] Apr, [facility], [place] [address] [facility] [id number] [address] [place] [address] Apr, Major depressive disorder, r ecurrent, moderate F33.[address] [id number] [place] [address] [id number] Apr, Type II diabetes mellitus E11.9 ; Benign essential hypertension I10 ; Edema R60.9 and Renal insufficiency N28.9 [facility], [place] [address] [facility] [id number] [address] [place] [address] Mar, Major depressive disorder, r ecurrent, moderate F33.1 [place] [address] [facility] [id number] [address] [place] [phone] Mar, [facility], [place] [address] [facility] [id number] [address] [place] [address] Mar, Major depression F32.9 [facility] [id number] [place] [address] [id number] Mar, Morbid obesity E66.01 ; Benign essential hypertension I10 and Type II diabetes mellitus E11.9 [place] [address] [facility] [id number] [address] [place] [address] Feb, Major depressive disorder, r ecurrent, moderate F33.1 [place] [address] [place] [id number] [address] [place] [address] 24 Feb, 2015 Major depressive disorder, r ecurrent episode, in partial or unspecified remission 296.35 ; Anxiety state, unspecified 300.00 and Morbid obesity 278.01 [place] [address] [facility] [id number] [address] [place] [address] Feb, [facility] [address] [place] [address] A[id number] [place] [address] [id number] 16 Feb, 2015 Vomiting 787.03 and Viral syndrome 079.[address] [id number] [address] [place] [address] 15 Feb, 2015 Major depression, recurrent 296.30 ; Generalized anxiety disorder 300.02 and No condition on [place] II V71.09 [facility] [address] [place] [address] AVE [id number] [place] [address] [id number] 03 Feb, 2015 Skin tag 701.9 [place] [address] [facility] [id number] [address] [place] [address] Feb, [place] [address] [facility] [id number] [address] [place] [address] Jan, Depression, major, recurrent , moderate 296.[address] [id number] [place] [address] [id number] Jan, Nausea and vomiting 787.01 ; Rib pain on right side 786.50 and Fall on or from sidewalk curb E880.1 [place] [address] [facility] [id number] [address] [place] [id number] Jan, [facility], [place] [address] [facility] [id number] [address] [place] [address] Jan, Major depressive disorder, r ecurrent episode, in partial or unspecified remission 296.35 and Anxiety state, unspecified 300.00 [facility] [address] [place] [address] AVE [id number], [place] [id number] Jan, [facility], [place] [address] [place] [id number] [address] [place] [address] Jan, Depression, major, recurrent , moderate 296.32 [place] [address] [address] Jan, Major depression, recurrent 296.30 ; No condition on [place] II V71.09 and No condition on axis III V71.09 [facility] [address] [place], [place] [address] [id number], [place] [id number] Jan, Drug-induced nausea and vomiting 787.01 [place] [id number] [address] [place] [address] Jan, Depression, major, recurrent , moderate 296.32 [place] [id number] [address] [place] [address] Dec, Depression, major, recurrent , moderate 296.32 [facility] [address] [place] [address] AVE [id number], [place] [id number] Dec, Morbid obesity 278.01 ; Metabolic syndro me 277.7 ; Hyperlipemia 272.4 ; Benign essential hypertension 401.1 ; Dietary counseling V65.3 ; Exercise counseling V65.41 and Inflamed skin tag 701.9 [place] [id number] [address] [place] [address] Dec, Depression, major, recurrent , moderate 296.32 [place] [id number] [address] [place] [address] Dec, [place] [address] [address] Dec, Major depression, recurrent 296.30 ; Anxiety, generalized 300.02 and No condition on [place] II V71.09 [place] [address] [place] 6[address] Dec, Depression, major, recurrent , moderate 296.32 [place] [address] [address] Dec, Major depressive disorder, r ecurrent episode, moderate 296.32 [place] [address] [place] 683[address] Dec, Depression, major, recurrent , moderate 296.32 [place] [address] [place] 683012[address] Dec, Depression, major, recurrent , moderate 296.32 [place] [address] [address] Dec, Depression, major, recurrent , moderate 296.32 [place] [address] [address] Dec, Depression, major, recurrent , moderate 296.32 [place] [address] [address] Nov, Depression, major, recurrent , moderate 296.32 [place] [address] [address] Nov, Major depression 296.20 ; So cial phobia 300.23 and No condition on [place] II V71.09 [place] [address] [place] 683012[address] Nov, Depression, major, recurrent , moderate 296.32 [place] [address] [address] Nov, Major depressive disorder, r ecurrent episode, moderate 296.32 and Generalized anxiety disorder 300.02 [place] [id number] [place] [address] 09 Nov, 2014 Depression, major, recurrent , moderate 296.32 [facility], [place] [address] [id number] [address] [place] [id number] 04 Nov, 2014 Depression, major, recurrent , moderate 296.32 [facility], [place] [address] [id number] [address] [place] [address] October, Generalized anxiety disorder 300.02 ; No condition on [place] II V71.09 and Major depressive disorder, recurrent 296.30 [facility], [place] [address] [id number] [address] [place] [address] Sep, [facility], [place] [address] [id number] [address] [place] [address] Sep, [facility], [place] [address] [id number] [address] [place] [address] Aug, [facility], [place] [address] [id number] [address] [place] [address] 24 Aug, 2014 [facility], [place] [address] [id number] [address] [place] [address] Aug, [facility], [place] [address] [id number] [address] [place] [address] Aug, [facility], [place] [address] [id number] [address] [place] [address] Aug, [facility], [place] [address] [id number] [address] [place] [address] Aug, [facility] [address] [id number] [address] [place] [id number] Aug, [facility] [address] [id number] [address] [place] [address] Aug, [facility] [address] [id number] [address] [place] [id number] Aug, [facility], [place] [address] [id number] [address] [place] [address] [place] [address] 13 Aug, 2014 [facility] [address] [id number] [address] [place] [address], [place] [address] 13 Aug, 2014 [facility] [address] [id number] [address] [place] [address], [place] [address] 13 Aug, 2014 [facility] [address] [id number] [address] [place] [address], [place] [address] 12 Aug, 2014 [facility] [place] [facility] [address] [id number] [address] [place] [address], [place] [address] 12 Aug, 2014 [facility] [address] [id number] [address] [place] [address], [place] [address] Aug, [facility] [address] [id number] [address] [place] [address], [place] [address] Aug, [facility] [address] [id number] [address] [place] [address], [place] [address] Aug, [facility] [address] [id number] [address] [place] [address], [place] [address] Aug, [facility] [address] [id number] [address] [place] [address], [place] [address] Jul, 2014 [facility] [address] [id number] [address] [place] [address], [place] [address] Jul, [facility] [place] [facility] [address] [id number] [address] [place] [address], [place] [address] Jul, 2014 [facility] [place] [facility] [address] [id number] [address] [place] [address], [place] [address] Jul, 2014 [facility] [place] [facility] [address] [id number] [address] [place] [address], [place] [address] Jul, 2014 [facility] [place] [facility] [address] [id number] [address] [place] [address], [place] [address] Jul, 2014 [facility] [place] [facility] [address] [id number] [address] [place] [address], [place] [address] Jun, [facility] [address] [id number] [address] [place] [address], [place] [address] Jun, [facility] [address] [id number] [address] [place] [address], [place] [address] Jun, [facility] [address] [id number] [address] [place] [address], [place] [address] Jun, [facility] [address] [id number] [address] [place] [address], [place] [address] Jun, [facility] [address] [id number] [address] [place] [address], [place] [address] Jun, [facility] [address] [id number] [address] [place] [address], [place] [address] Jun, [facility] [address] [id number] [address] [place] [address], [place] [address] Jun, [facility] [address] [id number] [address] [place] [address], [place] [address] Jun, [facility] [address] [id number] [address] [place] [address], [place] [address] Jun, [facility] [address] [id number] [address] [place] [address] Jun, [facility] [address] [id number] [address] [place] [address], [place] [address] Jun, [facility] [place] [address] [id number] [place] [id number] Jun, [facility] [address] [id number] [address] [place] [address], [place] [address] Jun, [facility] [address] [id number] [address] [place] [address], [place] [address] Jun, [facility] [address] [id number] [address] [place] [address], [place] [address] Jun, [facility] [address] [id number] [address] [place] [id number] May, [facility] [address] [id number] [address] [place] [address], [place] [address] May, [facility] [address] [id number] [address] [place] [address], [place] [address] May, [facility] [address] [id number] [address] [place] [address], [place] [address] May, [facility] [address] [id number] [address] [place] [id number] Apr, [facility] [address] [id number] [address] [place] [address], [place] [address] Apr, [facility] [address] [id number] [address] [place] [address], [place] [address] Apr, [facility] [address] [id number] [address] [place] [address], [place] [address] Apr, [facility] [address] [id number] [address] [place] [id number] Apr, [facility] [address] [id number] [address] [place] [id number] Apr, [facility] [address] [id number] [address] [place] [address], [place] [address] Apr, [facility] [address] [id number] [address] [place] [id number] Apr, [facility] [address] [id number] [address] [place] [id number] Apr, [facility] [address] [id number] [address] [place] [address], [place] [address] Apr, [facility] [address] [id number] [address] [place] [id number] Apr, [facility] [address] [id number] [address] [place] [id number] Apr, [facility] [address] [id number] [address] [place] [address], [place] [address] Apr, [facility] [address] [id number] [address] [place] [address], [place] [address] Apr, [facility] [address] [id number] [address] [place] [address], [place] [address] Apr, [facility] [address] [id number] [address] [place] [address], [place] [address] Apr, [facility] [address] [id number] [address] [place] [address], [place] [address] Apr, [facility] [address] [id number] [address] [place] [address], [place] [address] Apr, [facility] [address] [id number] [address] [place] [address], [place] [address] Apr, [facility] [address] [id number] [address] [place] [address], [place] [id number] Apr, [facility] [address] [id number] [address] [place] [address], [place] [id number] Mar, [facility] [address] [id number] [address] [place] [address], [place] [address] Mar, [facility] [address] [id number] [address] [place] [address], [place] [address] Mar, [facility] [address] [id number] [address] [place] [address], [place] [address] Mar, [facility] [address] [id number] [address] [place] [address], [place] [address] Mar, [facility] [address] [id number] [address] [place] [address], [place] [address] Mar, [facility] [address] [id number] [address] [place] [address], [place] [address] Mar, [facility] [address] [id number] [address] [place] [address], [place] [address] Mar, [facility] [address] [id number] [address] [place] [address], [place] [address] Mar, [facility] [address] [id number] [address] [place] [address], [place] [address] Mar, [facility] [address] [address] [id number] [address] [place] [address], [place] [address] Feb, [facility] [address] [id number] [address] [place] [address], [place] [address] Feb, [facility] [address] [id number] [address] [place] [address], [place] [address] Feb, [facility] [address] [id number] [address] [place] [address], [place] [address] Feb, [facility] [address] [id number] [address] [place] [address], [place] [address] Jan, [facility] [address] [id number] [address] [place] [address], [place] [address] Jan, [facility] [address] [id number] [address] [place] [address], [place] [address] Jan, [facility] [address] [id number] [address] [place] [address], [place] [address] Jan, [facility] [address] [id number] [address] [place] [address], [place] [address] Jan, [facility] [address] [id number] [address] [place] [address], [place] [address] Jan, [facility] [address] [id number] [address] [place] [address], [place] [address] Dec, [facility] [address] [id number] [address] [place] [address], [place] [address] Dec, [facility] [address] [id number] [address] [place] [address], [place] [address] Nov, [facility] [address] [id number] [address] [place] [address], [place] [address] Nov, [facility] [address] [id number] [address] [place] [address], [place] [address] Nov, [facility] [address] [id number] [address] [place] [address], [place] [address] Nov, [facility] [address] [id number] [address] [place] [address], [place] [address] Nov, [facility] [address] [id number] [address] [place] [address], [place] [address] Nov, [facility] [address] [id number] [address] [place] [address], [place] [address] Sep, [facility] [address] [id number] [address] [place] [address], [place] [address] Sep, [facility] [address] [id number] [address] [place] [address], [place] [address] Sep, [facility] [address] [id number] [address] [place] [address], [place] [address] Sep, [facility] [address] [id number] [address] [place] [address], [place] [address] Aug, [facility] [address] [id number] [address] [place] [address], [place] [address] Aug, [facility] [address] [id number] [address] [place] [address], [place] [address] Jul, [facility] [address] [id number] [address] [place] [address], [place] [address] Jul, [facility] [address] [id number] [address] [place] [address], [place] [address] Jun, [facility] [address] [id number] [address] [place] [address], [place] [address] Jun, [facility] [address] [id number] [address] [place] [address], [place] [address] Jun, [facility] [address] [id number] [address] [place] [address], [place] [address] 16 Jun, 2013 [facility] [address] [id number] [address] [place] [address], [place] [address] May, [facility] [address] [id number] [address] [place] [address], [place] [address] May, [facility] [address] [id number] [address] [place] [address], [place] [address] May, [facility] [address] [id number] [address] [place] [address], [place] [address] May, [facility] [address] [id number] [address] [place] [address], [place] [address] May, [facility] [address] [id number] [address] [place] [address], [place] [address] May, [facility] [address] [id number] [address] [place] [address], [place] [address] Apr, [facility] [address] [id number] [address] [place] [address], [place] [address] Apr, [facility] [address] [id number] [address] [place] [address], [place] [address] Apr, [facility] [address] [id number] [address] [place] [address], [place] [address] Apr, [facility] [address] [id number] [address] [place] [address], [place] [address] Mar, [facility] [address] [id number] [address] [place] [address], [place] [address] Mar, [facility] [address] [id number] [address] [place] [address], [place] [address] Mar, [facility] [address] [id number] [address] [place] [address], [place] [address] Mar, [facility] [address] [id number] [address] [place] [address], [place] [address] Feb, [facility] [address] [id number] [id number] Jan, [facility] [place] [address] [id number] [address] [place] [address] Jan, [facility] [place] [address] [id number] [address] [place] [id number] Dec, [facility] [place] [address] [id number] [address] [place] [address] Dec, [facility] [place] [address] [id number] [address] [place] [id number] Dec, [facility] [address] [id number] [id number] Dec, [facility] [place] [address] [id number] [address] [place] [id number] Nov, [facility] [place] [address] [id number] [address] [place] [id number] Nov, [facility] [place] [address] [id number] [address] [place] [id number] Nov, [facility] [place] [address] [id number] [address] [place] [id number] Nov, [facility] [place] [address] [id number] [address] [place] [id number] Nov, [facility] [place] [address] [id number] [address] [place] [id number] October, [facility] [place] [address] [id number] [address] [place] [id number] October, [facility] [place] [address] [id number] [address] [place] [id number] Aug, [facility] [place] [address] [id number] [address] [place] [id number] Nov, IMMUNIZATIONS No Known Immunizations SOCIAL HISTORY [...] 03/2016 Hospitalization History gastric sleeve Hospitalization History [facility] Trouble with left shoulder blade 08/2017
--- OUTSIDE RECORDS SUMMARY | 2019-11-29 09:16 | XMS REPORT ---
Author Author Curt DIAZ [facility] Address [address] [place] [address] Care Team Providers Care Driller Brake Lining Name Role Phone JOE CHRIS Unavailable PROBLEMS Type Condition ICD9-CM Code EQA47-PO Code Onset Dates Condition S tatus SNOMED Code Problem Insomnia G47.00 Active 502185925 Problem Benign essential hypertension I10 Active 8657886 Problem Hyperlipemia E78.5 Active 8351805 4 Problem Edema R60.9 Active 535971733 Problem Morbid obesity E66.01 Active 11115 6002 Problem Severe episode of recurrent major depressive disorder, without psychotic features F33.2 Active 28794817 Problem Vitamin D deficiency E55.9 Active 93732829 Problem Mixed obsessional thoughts and acts F42.2 Active 77456831 Problem Chronic fatigue R53.82 Active 8422 9001 Problem Metabolic syndrome E88.81 Active 2 71307259 Problem Other chronic pain G89.29 Active 8 3874019 Problem Renal insufficiency N28.9 Active 088937893 Problem BMI 45.0-49.9, adult Z68.42 Active 949411688 Problem DANIELA (generalized anxiety disorder) F41.1 Active 55039125 Problem Sciatica, right side M54.31 Active [id number] Problem 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 [id number] [place] [address] [id number] Jan, [facility] [address] [facility] [id number] [address] [place] [address] Dec, Severe episode of recurrent major depressive disorder, without psychotic features F33.2 [facility] [address] [facility] [id number] [address] [place] [address] Dec, DANIELA (generalized anxiety dis order) F41.1 ; Severe episode of recurrent major depressive disorder, without psychotic features F33.2 ; Mixed obsessional thoughts and acts F42.2 and 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 [facility] [place] [address] [facility] [address] [id number] [id number] Dec, Morbid obesity E66.01 [facility] [address] [facility] [id number] [address] [place] [phone] Dec, [facility] [address] [facility] [id number] [address] [place] [address] Dec, [address] [address] Nov, [facility] [address] [facility] [id number][place] [id number] Nov, [facility] [address] [facility] [id number] [address] [place] [address] Nov, [facility] [address] [facility] [id number] [address] [place] [phone] Nov, [facility] [address] [facility] [id number] [address] [place] [address] Nov, DANIELA (generalized anxiety dis order) F41.1 ; Severe episode of recurrent major depressive disorder, without psychotic features F33.2 ; Mixed obsessional thoughts and acts F42.2 and 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 [facility] [address] [facility] [id number], [place] [id number] Nov, Morbid obesity E66.01 [facility] [address] [facility] [id number] [address] [place] [address] Nov, [facility] [address] [facility] [id number] [address] [place] [phone] Nov, DANIELA (generalized anxiety dis order) F41.1 ; Mixed obsessional thoughts and acts F42.2 ; Severe episode of recurrent major depressive disorder, without psychotic features F33.2 and 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 [facility] [address] [facility] [id number][place] [id number] October, Morbid obesity E66.01 [facility] [facility] [address] [id number], [place] [id number] October, Benign essential hypertension I10 and Mo rbid obesity E66.01 [facility] Bender[address] [place] [address] AVE [id number] [place] [address] [id number] October, [facility] [address] [place] [id number] [address] [place] [phone] October, Severe episode of recurrent major depressive disorder, without psychotic features F33.2 [facility] [id number] [place] [address] [phone] October, Morbid obesity E66.01 [facility] [address]ender[address] [place] [id number] [place] [address] [id number] October, [facility] [address] [place] [id number] [address] [place] [address] October, Severe episode of recurrent major depressive disorder, without psychotic features F33.2 ; DANIELA (generalized anxiety disorder) F41.1 ; Mixed obsessional thoughts and acts F42.2 and 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 [facility] Yulia[address] [place] [id number] [place] [address] [id number] October, Morbid obesity E66.01 [facility] [address] [facility] [id number] [address] [place] [address] [id number] Sep, Dental examination Z01.20 [facility] [id number] [place] [address] [phone] Sep, [facility] [address] [place] [id number] [address] [place] [address] Sep, Sore in mouth K13.79 and Mor bid obesity E66.01 [facility] [address] [place] [id number] [address] [place] [address] Sep, Dental examination Z01.20 [facility] [address] [facility] [id number] [address] [place] [address] Sep, Anxiety disorder, unspecifie d F41.9 [facility] [address] [id number], [place] [id number] Sep, Mouth ulcer K12.[address] [id number], [place] [id number] Sep, Morbid obesity E66.01 [facility] [id number], [place] [id number] Sep, Allergic rhinitis, unspecified seasonali ty, unspecified trigger J30.9 and Shortness of breath R06.02 [facility] [id number], [place] [id number] Sep, 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 [facility] [address] [address] [id number], [place] [id number] Aug, Mouth abscess K12.2 ; Mouth ulcer K12.1 ; Bloating R14.0 and Morbid obesity E66.01 [facility] [address] [address] [address] [id number], [place] [id number] Aug, [facility] [id number], [place] [id number] Aug, [facility] [address] [address] [address] [id number], [place] [id number] Jul, Major depressive disorder, recurrent, mo derate F33.1 ; Abscess of arm, left L02.414 ; BMI 45.0-49.9, adult Z68.42 and Morbid obesity E66.01 [facility] [address] [id number], [place] [id number] Jul, [facility] [id number], [place] [id number] Jul, [facility] [address] [address] [address] [id number], [place] [id number] Jun, Pain in right knee M25.561 and Other chr onic pain G89.29 [facility] [address] [address] [id number], [place] [id number] Jun, Benign essential hypertension I10 ; BMI 45.0-49.9, adult Z68.42 ; Morbid obesity E66.01 ; Vitamin D deficiency E55.9 ; Insomnia G47.00 ; 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 ; Edema R60.9 ; Recurrent major depressive disorder, in partial remission F33.41 ; Chronic fatigue R53.82 ; Acute pain of right knee M25.561 ; Metabolic syndrome E88.81 and Irritable mood R45.4 [facility] [address] [facility] [id number] [address] [place] [address] Jun, [facility] [address] [facility] [address] [id number], [place] [id number] Jun, Irritable mood R45.4 [facility] [address] [facility] [id number] [address] [place] [address] May, [facility] [address] [facility] [id number] [address] [place] [phone] May, [facility] [address] [facility] [id number] [address] [place] [address] May, Recurrent major depressive d isorder, in partial remission F33.41 ; Mixed obsessional thoughts and acts F42.2 ; 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 and BMI 45.0-49.9, adult Z68.42 [facility] [address] [facility] [id number] [address] [place] [address] Apr, [facility] [address] [facility] [id number] [address] [place] [address] Apr, [facility] [address] [facility] [id number] [address] [place] [address] Apr, [facility] [address] [facility] [id number] [address] [place] [address] Apr, [place] [address] [facility] [id number] [address] [place] [address] Mar, Mixed obsessional thoughts a nd acts F42.2 ; Recurrent major depressive disorder, in partial remission F33.41 ; DANIELA (generalized anxiety disorder) F41.1 and BMI 45.0-49.9, adult Z68.42 [facility] [address] [id number], [place] [id number] Mar, [facility] [address] [address] [id number], [place] [id number] Mar, BMI 45.0-49.9, adult Z68.42 ; Instabilit y of right knee joint M25.361 and Rash R21 [place] [address] [facility] [id number] [address] [place] [address] Jan, Recurrent major depressive d isorder, in partial remission F33.41 ; Mixed obsessional thoughts and acts F42.2 and BMI 45.0-49.9, adult Z68.42 [facility] [address] [address] [id number], [place] [id number] Jan, [facility] [place] [address] [id number], [place] [id number] Jan, Benign essential hypertension I10 ; BMI 45.0-49.9, adult Z68.42 ; Metabolic syndrome E88.81 and Allergic rhinitis, unspecified seasonality, unspecified trigger J30.9 [place] [address] [facility] [id number] [address] [place] [address] Dec, DANIELA (generalized anxiety dis order) F41.1 and Depressive disorder, not elsewhere classified F32.9 [facility] [address] [id number], [place] [id number] Dec, Recurrent major depressive disorder, in partial remission F33.41 [facility] [address] [id number], [place] [id number] Dec, [facility] [address] [id number], [place] [id number] Nov, [facility] [address] [id number], [place] [id number] Nov, Recurrent major depressive disorder, in partial remission F33.41 [facility] [address] [facility] [id number] [address] [place] [address] Nov, Recurrent major depressive d isorder, in partial remission F33.41 ; Mixed obsessional thoughts and acts F42.2 ; DANIELA (generalized anxiety disorder) F41.1 and BMI 45.0-49.9, adult Z68.42 [facility] [address] [id number], [place] [id number] Nov, [facility] [address] [id number], [place] [id number] Nov, Other conjunctivitis of both eyes H10.89 and Sciatica, right side M54.31 [facility] [address] [id number], [place] [id number] Nov, [facility] [address] [id number], [place] [id number] Nov, [facility] [address] [id number], [place] [id number] October, [facility] [address] [id number], [place] [id number] October, [facility] [address] [facility] [id number] [address] [place] [address] October, BMI 45.0-49.9, adult Z68.42 ; Mixed obsessional thoughts and acts F42.2 ; Recurrent major depressive disorder, in partial remission F33.41 and DANIELA (generalized anxiety disorder) F41.[address] [facility] [address] [id number], [place] [id number] October, Benign essential hypertension I10 ; Morb id obesity E66.01 and BMI 45.0-49.9, adult Z68.[address] [facility] [address] [id number], [place] [id number] Sep, [facility] [id number], [place] [id number] Sep, [facility] [id number], [place] [id number] Sep, [address] [id number], [place] [id number] Sep, Hospital discharge follow-up Z09 ; Aller gic rhinitis, unspecified seasonality, unspecified trigger J30.9 and Shortness of breath R06.[address] [id number], [place] [id number] Sep, Recurrent major depressive disorder, in partial remission F33.[address] [id number], [place] [id number] Aug, Irritable mood R45.4 [place] [address] [place] [address] Aug, [address] [id number], [place] [id number] Jul, Benign essential hypertension I10 ; Robert a R60.9 and Impacted cerumen of left ear H61.22 [place] [address] [place] [address] Jul, Major depression F32.9 ; Rec urrent major depressive disorder, in partial remission F33.41 and Anxiety F41.9 [place] [address] [place] [id number] [address] [place] [address] Jun, Major depression F32.9 ; Rec urrent major depressive disorder, in partial remission F33.41 and Anxiety F41.[address] [id number], [place] [id number] Jun, Major depression F32.9 ; Morbid obesity E66.01 ; Irritable mood R45.4 ; Hand weakness R29.898 and Vitamin D deficiency E55.9 [facility] [address] [id number], [place] [id number] Jun, [facility] [address] [id number], [place] [id number] May, Major depression F32.9 [facility] [address] [facility] [id number] [address] [place] [address] May, Major depression F32.9 [facility] [address] [id number], [place] [id number] May, BMI 50.0-59.9, adult Z68.43 ; Major depr ession F32.9 ; Anxiety F41.9 ; Hypertrophic toenail L60.2 and Pain of left great toe M79.675 [facility] [address] [id number], [place] [id number] May, Recurrent major depressive disorder, in partial remission F33.41 [facility] [address] [place] [id number] [address] [place] [phone] Apr, [facility] [address] [id number], [place] [id number] Apr, [facility] [address] [facility] [id number] [address] [place] [address] Apr, Major depression F32.9 [facility] [address] [id number], [place] [id number] Apr, Severe episode of recurrent major depres sive disorder, without psychotic features F33.2 ; Anxiety F41.9 and Insomnia G47.00 [facility] [address] [id number], [place] [id number] Apr, [facility] [address] [facility] [id number] [address] [place] [address] Apr, [facility] [address] [id number], [place] [id number] Apr, [facility] [address] [id number], [place] [id number] Mar, [facility] [address] [id number], [place] [id number] Mar, Allergic conjunctivitis of both eyes H10 .13 [facility] [address] [facility] [id number] [address] [place] [address] Mar, Major depression F32.9 [facility] [address] [id number], [place] [id number] Mar, Metabolic syndrome E88.81 ; History of g astric bypass Z98.890 ; Benign essential hypertension I10 ; Allergic conjunctivitis of both eyes H10.13 and Morbid obesity E66.01 [facility] [address] [facility] [id number] [address] [place] [address] Mar, Major depression F32.9 [facility] [address] [facility] [address] [id number], [place] [id number] Feb, [facility] [address] [facility] [id number] [address] [place] [address] Feb, Major depression F32.9 [facility] [address] [facility] [address] [id number], [place] [id number] Feb, Subacute maxillary sinusitis J01.00 and Bronchitis J40 [place] [address] [facility] [id number] [address] [place] [address] Feb, Major depressive disorder, r ecurrent, moderate F33.1 [facility] [address] [id number], [place] [id number] Jan, [facility] [place] [address] [id number], [place] [id number] Jan, Acute non-recurrent maxillary sinusitis J01.00 and Skin tag L91.8 [facility] [address] [id number], [place] [id number] Jan, Cough R05 and Sinus congestion R09.81 [facility] [address] [id number], [place] [id number] Jan, [facility] [address] [id number], [place] [id number] Jan, Benign essential hypertension I10 ; Hist ory of gastric bypass Z98.890 and Nausea and vomiting in adult R11.2 [facility] [address] [facility] [id number] [address] [place] [phone] 04 Jan, 2017 Major depressive disorder, r ecurrent, moderate F33.1 [place] [address] [facility] [id number] [address] [place] [address] Dec, Insomnia G47.00 ; Recurrent major depressive disorder, in partial remission F33.41 and Morbid obesity E66.01 [facility] [place] [address] [facility] [address] [id number], [place] [id number] Dec, [facility] [address] [place] [address] [id number] [place] [address] [id number] Dec, Chronic bacterial conjunctivitis of left eye H10.402 [facility] [place] [address] [place] [address] AVE [id number], [place] [id number] Nov, [facility] [place] [address] [place] [address] AVE [id number], [place] [id number] Nov, Dental examination Z01.20 [facility] [address] [id number], [place] [id number] Nov, Benign essential hypertension I10 ; Hist ory of gastric bypass Z98.890 and Nausea and vomiting in adult R11.2 [facility] [address] [facility] [id number] [address] [place] [address] 13 Nov, 2016 Major depressive disorder, r ecurrent, moderate F33.1 ; Generalized anxiety disorder F41.1 and Insomnia due to other mental disorder F51.05 [place] [address] [facility] [id number] [address] [place] [address] 12 Nov, 2016 Recurrent major depressive d isorder, in partial remission F33.41 ; Insomnia G47.00 and Morbid obesity E66.01 [facility] [address] [id number] Kiesha ESCOBEDO S [id number] October, Abscess of left arm L02.414 [place] [address] [facility] [id number] [address] [place] [address] October, Morbid obesity E66.01 ; Lida r depression F32.9 and Recurrent major depressive disorder, in partial remission F33.[address] [place] [address] [id number], [place] [id number] Sep, Benign essential hypertension I10 ; Morb id obesity E66.01 ; S/P gastric bypass Z98.84 ; Abscess L02.91 and Chronic bacterial conjunctivitis of left eye H10.[address] [id number], [place] [id number] Sep, Dental examination Z01.20 [place] [address] [place] [address] Sep, Morbid obesity E66.01 ; Lida r depression F32.9 and Recurrent major depressive disorder, in partial remission F33.41 [place] [address] [place] [address] Jul, [place] [address] [place] [id number] [address] [place] [id number] Jul, Major depressive disorder, r ecurrent, moderate F33.1 [place] [address] [place] [id number] [address] [place] [address] Jul, Major depressive disorder, r ecurrent, moderate F33.1 and Generalized anxiety disorder F41.[address] [place] [address] [id number], [place] [id number] Jul, Cough R05 [place] [address] [place] [id number] [address] [place] [address] 16 Jul, 2016 Morbid obesity E66.01 ; Lida r depression F32.9 and Recurrent major depressive disorder, in partial remission F33.[address] [facility] [address] [id number], [place] [id number] Jul, [facility] [place] [address] [id number], [place] [id number] Jul, [facility] [address] [id number], [place] [id number] Jul, Gastroenteritis K52.9 and Cough R05 [facility] [address] [id number] [place] [address] [id number] Jun, Acute bacterial conjunctivitis of left e ye H10.32 [place] [address] [facility] [id number] [address] [place] [address] Jun, [place] [address] [place] [id number] [address] [place] [address] Jun, Recurrent major depressive d isorder, in partial remission F33.41 [place] [address] [place] [id number] [address] [place] [address] May, Major depression F32.9 and M orbid obesity E66.01 [place] [address] [facility] [id number] [address] [place] [address] May, [facility] [id number] [place] [id number] May, Thrush B37.0 [facility] [address] [place] [id number] [address] [place] [id number] Apr, Major depressive disorder, r ecurrent, moderate F33.1 [facility] [address] [facility] [id number] [address] [place] [id number] Apr, Insomnia G47.00 ; Major depr ession F32.9 and Recurrent major depressive disorder, in partial remission F33.41 [facility] [address] [facility] [id number] [address] [place] [id number] Apr, [facility] [address] [facility] [id number] [address] [place] [id number] Apr, Major depression F32.9 and R ecurrent major depressive disorder, in partial remission F33.[address] [id number] [id number] [id number] Mar, Benign essential hypertension I10 ; Morb id obesity E66.01 ; Impacted cerumen of both ears H61.23 ; Laceration of finger of right hand, initial encounter S61.219A and Encounter for immunization Z23 [facility] [address] [facility] [id number] [place] [address] Mar, [facility] [address] [facility] [id number] [address] [place] [address] Mar, [facility] [address] [facility] [id number] [address] [place] [address] Mar, [address] [id number] [place] [address] [id number] Feb, Nausea R11.0 ; Blood in the stool K92.1 and Benign essential hypertension I10 [facility] [address] [facility] [id number] [address] [place] [address] Feb, Major depression F32.9 and R ecurrent major depressive disorder, in partial remission F33.41 [place] [id number] [facility] [address] [id number][place] [id number] Feb, [place] [address] [id number][place] [id number] Feb, Recurrent major depressive disorder, in partial remission F33.[address] [place] [id number] [id number] Jan, [place] [address] [id number] [id number] Jan, Benign essential hypertension I10 ; Robert a R60.9 and Hyperlipidemia, unspecified hyperlipidemia type E78.[address] [place] [address] [id number] [id number] Jan, Recurrent major depressive disorder, in partial remission F33.41 [facility] [address] [id number] Kiesha ESCOBEDO S [id number] Jan, [facility] [address] [id number][place] [id number] Jan, [facility] [address] [id number], [place] [id number] Jan, [facility] [address] [facility] [id number] [address] [place] [id number] Jan, [facility] [address] [facility] [id number] [address] [place] [address] Dec, [facility] [address] [facility] [id number] [address] [place] [address] Nov, [facility] [address] [facility] [id number] [address] [place] [address] Nov, Major depression F32.9 [facility] [address] [facility] [id number] [address] [place] [address] Nov, [facility] [address] [facility] [id number] [address] [place] [address] Nov, [facility] [address] [facility] [id number] [address] [place] [address] Nov, Major depressive disorder, r ecurrent episode, mild F33.0 and Anxiety F41.9 [facility] [address] [id number], [place] [id number] Nov, [facility] [address] [id number], [place] [id number] October, Left elbow pain M25.522 and Other season al allergic rhinitis J30.2 [facility] [address] [id number], [place] [id number] October, [facility] [address] [facility] [id number] [address] [place] [address] October, Major depressive disorder, r ecurrent, moderate F33.1 [facility] [address] [facility] [id number] [address] [place] [address] October, Major depression F32.9 [facility] [address] [facility] [id number] [address] [place] [address] Sep, Aurora or callus L84 and Onych omycosis B35.1 [facility] [address] [facility] [id number] [address] [place] [address] Sep, Major depressive disorder, r ecurrent, moderate F33.1 [facility] [address] [facility] [id number] [address] [place] [address] Sep, Major depression F32.9 [facility] [address] [facility] [id number] [address] [place] [id number] Sep, Moderate episode of recurren t major depressive disorder F33.1 [facility] [address] [id number], [place] [id number] Sep, Muscle strain T14.8 [facility] [address] [facility] [id number] [address] [place] [address] Aug, Major depression F32.9 [facility] [address] [facility] [id number] [address] [place] [address] Aug, Major depression F32.9 [facility] [address] [facility] [id number] [address] [place] [address] Jul, Morbid obesity E66.01 and Ma cora depression F32.9 [facility] [address] [facility] [id number] [address] [place] [address] Jul, Depression, major, recurrent , moderate F33.1 [facility] [id number] [place] [address] [id number] Jul, [facility] [address] [facility] [id number] [address] [place] [address] Jul, [facility] [address] [facility] [id number] [address] [place] [id number] 16 Jul, 2015 Major depression F32.9 and M orbid obesity E66.01 [address] [id number][place] [id number] 11 Jul, 2015 Type II diabetes mellitus E11.9 ; Callus of foot L84 ; Benign essential hypertension I10 and Renal insufficiency N28.9 [place] [address] [place] [id number] [address] [place] [id number] 09 Jul, 2015 Depression, major, recurrent , moderate F33.1 [place] [address] [facility] [id number] [address] [place] [address] Jul, Major depression F32.9 [place] [address] [place] [id number] [address] [place] [address] Jul, [place] [id number] [place] [address] Jun, Major depression F32.9 [place] [address] [facility] [id number] [address] [place] [address] Jun, Major depressive disorder, r ecurrent, moderate F33.1 [place] [address] [place] [id number] [address] [place] [address] Jun, [place] [address] [place] [id number] [address] [place] [address] Jun, Major depressive disorder, r ecurrent, moderate F33.1 and Major depression F32.[address] [id number][place] [id number] Jun, Type II diabetes mellitus E11.9 [place] [address] [facility] [id number] [address] [place] [address] Jun, Depression, major, recurrent , moderate F33.1 [place] [address] [facility] [id number] [address] [place] [address] May, Major depressive disorder, r ecurrent, moderate F33.1 [facility] [address] [facility] [id number] [address] [place] [address] May, [address] [id number] [place] [address] [id number] May, Edema R60.9 [facility] [address] [facility] [id number] [address] [place] [address] May, Insomnia G47.00 and Major de pression F32.[address] [id number] [place] [address] [id number] May, Morbid obesity E66.01 ; Edema R60.9 ; Sh ortness of breath R06.02 ; Benign essential hypertension I10 and Renal insufficiency N28.[address] [id number] [place] [address] [id number] May, Hyperlipemia 272.4 and Renal insufficien cy N28.9 [place] [address] [facility] [id number] [address] [place] [address] Apr, Major depression F32.9 [place] [address] [place] [id number] [address] [place] [address] Apr, [place] [address] [place] [id number] [address] [place] [address] Apr, Major depressive disorder, r ecurrent, moderate F33.[address] [id number] [place] [address] [id number] Apr, Type II diabetes mellitus E11.9 ; Benign essential hypertension I10 ; Edema R60.9 and Renal insufficiency N28.9 [place] [address] [facility] [id number] [address] [place] [address] Mar, Major depressive disorder, r ecurrent, moderate F33.1 [place] [address] [facility] [id number] [address] [place] [address] Mar, [facility] [address] [facility] [id number] [address] [place] [address] Mar, Major depression F32.[address] [place] [id number] [place] [address] [id number] Mar, Morbid obesity E66.01 ; Benign essential hypertension I10 and Type II diabetes mellitus E11.9 [place] [address] [facility] [id number] [address] [place] [address] Feb, Major depressive disorder, r ecurrent, moderate F33.1 [place] [address] [place] [id number] [address] [place] [address] Feb, Major depressive disorder, r ecurrent episode, in partial or unspecified remission 296.35 ; Anxiety state, unspecified 300.00 and Morbid obesity 278.01 [place] [address] [facility] [id number] [address] [place] [address] Feb, [address] [id number] [place] [address] [id number] 16 Feb, 2015 Vomiting 787.03 and Viral syndrome 079.9 9 [place] [address] [facility] [id number] [address] [place] [address] 15 Feb, 2015 Major depression, recurrent 296.30 ; Generalized anxiety disorder 300.02 and No condition on [place] II V71.[address] [id number] [place] [address] [id number] 03 Feb, 2015 Skin tag 701.[address] [id number] [address] [place] [address] Feb, [place] [address] [facility] [id number] [address] [place] [address] Jan, Depression, major, recurrent , moderate 296.[address] [id number] [place] [address] [id number] Jan, Nausea and vomiting 787.01 ; Rib pain on right side 786.50 and Fall on or from sidewalk curb E880.1 [place] [address] [facility] [id number] [address] [place] [address] Jan, [facility] [address] [facility] [id number] [address] [place] [address] Jan, Major depressive disorder, r ecurrent episode, in partial or unspecified remission 296.35 and Anxiety state, unspecified 300.00 [facility] [address] [place] [address] AVE [id number], [place] [id number] Jan, [facility] [address] [place], [id number] [address] [place] [address] Jan, Depression, major, recurrent , moderate 296.[address] [address] Jan, Major depression, recurrent 296.30 ; No condition on [place] II V71.09 and No condition on axis III V71.09 [facility] [address] [place], [place] [address] [id number], [place] [id number] Jan, Drug-induced nausea and vomiting 787.01 [place] [id number] [place] [address] Jan, Depression, major, recurrent , moderate 296.32 [place] [id number] [address] [place] [address] Dec, Depression, major, recurrent , moderate 296.32 [facility] [address] [place], [place] [address] [id number], [place] [id number] Dec, Morbid obesity 278.01 ; Metabolic syndro me 277.7 ; Hyperlipemia 272.4 ; Benign essential hypertension 401.1 ; Dietary counseling V65.3 ; Exercise counseling V65.41 and Inflamed skin tag 701.9 [place] [id number] [address] [place] [address] Dec, Depression, major, recurrent , moderate 296.32 [place] [id number] [address] [place] [address] Dec, [address] [place] [address] Dec, Major depression, recurrent 296.30 ; Anxiety, generalized 300.02 and No condition on [place] II V71.09 [place] [address] [place] [address] Dec, Depression, major, recurrent , moderate 296.32 [place] [address] [place] [address] Dec, Major depressive disorder, r ecurrent episode, moderate 296.32 [place] [address] [place] [address] Dec, Depression, major, recurrent , moderate 296.32 [place] [address] [place] [address] Dec, Depression, major, recurrent , moderate 296.32 [place] [address] [place] [address] Dec, Depression, major, recurrent , moderate 296.32 [place] [address] [address] Dec, Depression, major, recurrent , moderate 296.32 [place] [address] [address] Nov, Depression, major, recurrent , moderate 296.32 [place] [address] [address] Nov, Major depression 296.20 ; So cial phobia 300.23 and No condition on [place] II V71.09 [place] [address] [place] [id number] Nov, Depression, major, recurrent , moderate 296.32 [place] [address] [place] [id number] Nov, Major depressive disorder, r ecurrent episode, moderate 296.32 and Generalized anxiety disorder 300.02 [place] [address] [place] [id number] [place] [address] 09 Nov, 2014 Depression, major, recurrent , moderate 296.32 [facility] [address] [id number] [address] [place] [id number] 04 Nov, 2014 Depression, major, recurrent , moderate 296.32 [facility] [address] [facility] [id number] [address] [place] [address] October, Generalized anxiety disorder 300.02 ; No condition on [place] II V71.09 and Major depressive disorder, recurrent 296.30 [facility] [address] [id number] [address] [place] [address] Sep, [facility] [address] [id number] [address] [place] [address] Sep, [facility] [address] [id number] [address] [place] [address] Aug, [facility] [address] [id number] [address] [place] [id number] 24 Aug, 2014 [facility] [address] [id number] [address] [place] [address] Aug, [facility] [address] [id number] [address] [place] [address] Aug, [facility] [address] [id number] [address] [place] [address] Aug, [facility] [address] [id number] [address] [place] [phone] Aug, [facility] [address] [id number] [address] [place] [address] Aug, [facility] [address] [id number] [address] [place] [id number] Aug, [facility] [address] [id number] [address] [place] [address] Aug, [facility] [address] [id number] [address] [place] [id number] 13 Aug, 2014 [facility] [address] [id number] [address] [place] [address], [place] [address] 13 Aug, 2014 [facility] [address] [id number] [address] [place] [address], [place] [address] 13 Aug, 2014 [facility] [address] [id number] [address] [place] [address], [place] [address] Aug, [facility] [address] [id number] [address] [place] [address], [place] [address] Aug, [facility] [address] [id number] [address] [place] [address], [place] [address] Aug, [facility] [address] [id number] [address] [place] [address], [place] [address] Aug, [facility] [address] [id number] [address] [place] [address], [place] [address] Aug, [facility] [address] [id number] [address] [place] [address], [place] [address] Aug, [facility] [address] [id number] [address] [place] [address], [place] [address] Jul, [facility] [address] [id number] [address] [place] [address], [place] [address] Jul, [facility] [address] [id number] [address] [place] [address], [place] [address] Jul, 2014 [facility] [address] [id number] [address] [place] [address], [place] [address] Jul, 2014 [facility] [address] [id number] [address] [place] [address], [place] [address] Jul, [facility] [address] [id number] [address] [place] [address], [place] [address] Jul, 2014 [facility] [address] [id number] [address] [place] [address], [place] [address] Jun, [facility] [address] [id number] [address] [place] [address], [place] [address] Jun, [facility] [address] [id number] [address] [place] [address], [place] [address] Jun, [facility] [address] [id number] [address] [place] [address], [place] [address] Jun, [facility] [address] [id number] [address] [place] [address], [place] [address] Jun, [facility] [address] [id number] [address] [place] [address], [place] [address] Jun, [facility] [address] [id number] [address] [place] [address], [place] [address] Jun, [facility] [address] [id number] [address] [place] [address], [place] [address] Jun, [facility] [address] [id number] [address] [place] [address], [place] [address] Jun, [facility] [address] [id number] [address] [place] [address], [place] [address] Jun, [facility] [address] [id number] [address] [place] [address], [place] [address] Jun, [facility] [address] [id number] [address] [place] [address], [place] [address] Jun, [facility] [address] [id number] [place] [address] [id number] Jun, [facility] [address] [id number] [address] [place] [address], [place] [address] Jun, [facility] [address] [id number] [address] [place] [address], [place] [address] Jun, [facility] [address] [id number] [address] [place] [address], [place] [address] Jun, [facility] [address] [id number] [address] [place] [address] May, [facility] [address] [id number] [address] [place] [address], [place] [address] May, [facility] [address] [id number] [address] [place] [address], [place] [address] May, [facility] [address] [id number] [address] [place] [address], [place] [address] May, [facility] [address] [id number] [address] [place] [address], [place] [address] Apr, [facility] [address] [id number] [address] [place] [address], [place] [address] Apr, [facility] [address] [id number] [address] [place] [address], [place] [address] Apr, [facility] [address] [id number] [address] [place] [address], [place] [address] Apr, [facility] [address] [id number] [address] [place] [address] Apr, [facility] [address] [id number] [address] [place] [address], [place] [address] Apr, [facility] [address] [id number] [address] [place] [address], [place] [address] Apr, [facility] [address] [id number] [address] [place] [address] Apr, [facility] [address] [id number] [address] [place] [address] Apr, [facility] [address] [id number] [address] [place] [address], [place] [address] Apr, [facility] [address] [id number] [address] [place] [address] Apr, [facility] [address] [id number] [address] [place] [address] Apr, [facility] [address] [id number] [address] [place] [address], [place] [address] Apr, [facility] [address] [id number] [address] [place] [address], [place] [address] Apr, [facility] [address] [id number] [address] [place] [address], [place] [address] Apr, [facility] [address] [id number] [address] [place] [address], [place] [address] Apr, [facility] [address] [id number] [address] [place] [address], [place] [address] Apr, [facility] [address] [id number] [address] [place] [address], [place] [address] Apr, [facility] [address] [id number] [address] [place] [address], [place] [address] Apr, [facility] [address] [id number] [address] [place] [address], [place] [address] Apr, [facility] [address] [id number] [address] [place] [address], [place] [address] Mar, [facility] [address] [id number] [address] [place] [address], [place] [address] Mar, [facility] [address] [id number] [address] [place] [address], [place] [address] Mar, [facility] [address] [id number] [address] [place] [address], [place] [address] Mar, [facility] [address] [id number] [address] [place] [address], [place] [address] Mar, [facility] [address] [id number] [address] [place] [address], [place] [address] Mar, [facility] [address] [id number] [address] [place] [address], [place] [address] Mar, [facility] [address] [id number] [address] [place] [address], [place] [address] Mar, [facility] [address] [id number] [address] [place] [address], [place] [address] Mar, [facility] [address] [id number] [address] [place] [address], [place] [address] Mar, [facility] [address] [id number] [address] [place] [address], [place] [address] Feb, [facility] [address] [id number] [address] [place] [address], [place] [address] Feb, [facility] [address] [id number] [address] [place] [address], [place] [address] Feb, [facility] [address] [id number] [address] [place] [address], [place] [address] Feb, [facility] [address] [id number] [address] [place] [address], [place] [address] Jan, [facility] [address] [id number] [address] [place] [address], [place] [address] Jan, [facility] [address] [id number] [address] [place] [address], [place] [address] Jan, [facility] [address] [id number] [address] [place] [address], [place] [address] Jan, [facility] [address] [id number] [address] [place] [address], [place] [address] Jan, [facility] [address] [id number] [address] [place] [address], [place] [address] Jan, [facility] [address] [id number] [address] [place] [address], [place] [address] Dec, [facility] [address] [id number] [address] [place] [address], [place] [address] Dec, [facility] [address] [id number] [address] [place] [address], [place] [address] Nov, [facility] [address] [id number] [address] [place] [address], [place] [address] Nov, [facility] [address] [id number] [address] [place] [address] Nov, [facility] [address] [id number] [address] [place] [address], [place] [address] Nov, [facility] [address] [id number] [address] [place] [address], [place] [address] Nov, [facility] [address] [id number] [address] [place] [address], [place] [address] Nov, [facility] [address] [id number] [address] [place] [address], [place] [address] Sep, [facility] [address] [id number] [address] [place] [address], [place] [address] Sep, [facility] [address] [id number] [address] [place] [address], [place] [address] Sep, [facility] [address] [id number] [address] [place] [address], [place] [address] Sep, [facility] [address] [id number] [address] [place] [address], [place] [address] Aug, [facility] [address] [id number] [address] [place] [address], [place] [address] Aug, [facility] [address] [id number] [address] [place] [address], [place] [address] Jul, [facility] [address] [id number] [address] [place] [address], [place] [address] Jul, [facility] [address] [id number] [address] [place] [address], [place] [address] Jun, [facility] [address] [id number] [address] [place] [address], [place] [address] Jun, [facility] [address] [id number] [address] [place] [address], [place] [address] Jun, [facility] [address] [id number] [address] [place] [address], [place] [address] 16 Jun, 2013 [facility] [address] [id number] [address] [place] [address], [place] [address] May, [facility] [address] [id number] [address] [place] [address], [place] [address] May, [facility] [address] [id number] [address] [place] [address], [place] [address] May, [facility] [address] [id number] [address] [place] [address], [place] [address] May, [facility] [address] [id number] [address] [place] [address], [place] [address] May, [facility] [address] [id number] [address] [place] [address], [place] [address] May, [facility] [address] [id number] [address] [place] [address], [place] [address] Apr, [facility] [address] [id number] [address] [place] [address], [place] [address] Apr, [facility] [address] [id number] [address] [place] [address], [place] [address] Apr, [facility] [address] [id number] [address] [place] [address], [place] [address] Apr, [facility] [address] [id number] [address] [place] [address], [place] [address] Mar, [facility] [address] [id number] [address] [place] [address], [place] [address] Mar, [facility] [address] [id number] [address] [place] [address], [place] [address] Mar, [facility] [address] [id number] [address] [place] [address], [place] [address] Mar, [facility] [address] [id number] [address] [place] [address], [place] [address] Feb, [facility] [address] [id number] [id number] Jan, [facility] [address] [id number] [address] [place] [address], [place] [address] Jan, [facility] [address] [id number] [address] [place] [address], [place] [address] Dec, [facility] [address] [id number] [address] [place] [address] Dec, [facility] [address] [id number] [address] [place] [address], [place] [address] Dec, [facility] [address] [id number] [place] [id number] Dec, [facility] [address] [id number] [address] [place] [address] Nov, [facility] [address] [id number] [address] [place] [address] Nov, [facility] [address] [id number] [address] [place] [address] Nov, [facility] [address] [id number] [address] [place] [address] Nov, [facility] [address] [id number] [address] [place] [address] Nov, [facility] [address] [id number] [address] [place] [address] October, [facility] [address] [id number] [address] [place] [address] October, [facility] [address] [id number] [address] [place] [address] Aug, [facility] [address] [id number] [address] [place] [id number] 13 Nov, 2011 IMMUNIZATIONS No Known Immunizations SOCIAL HISTORY Never Assessed REASON FOR VISIT PLAN OF CARE VITAL SIGNS Height 72 in 2014-08-21 Weight 449.38 lbs 2014-08-21 Temperature 96.6 degrees Fahrenheit 2014-08-21 Heart Rate 84 bpm 2014-08-21 Respiratory Rate 18 2014-08-21 Blood pressure systolic 122 mmHg 2014-08-21 Blood pressure diastolic 60 mmHg 2014-08-21 MEDICATIONS Unknown Medications RESULTS No Results PROCEDURES Procedure Date Ordered Result Body Site NATRIURETIC PEPTIDE August 21, 2014 GLYCATED HEMOGLOBIN TEST August 21, 2014 MICROALBUMIN, SEMIQUANT August 21, 2014 COMPREHEN METABOLIC PANEL August 21, 2014 VENIPUNCT, ROUTINE* August 21, 2014 INSTRUCTIONS MEDICATIONS ADMINISTERED No Known Medications [...] 03/2016 Hospitalization History gastric sleeve Hospitalization History [facility] ER Trouble with left shoulder blade 08/2017
--- OUTSIDE RECORDS SUMMARY | 2019-11-29 09:16 | XMS REPORT ---
Author Author Curt DIAZ [facility] Address [address] [place] [address] Care Team Providers Care Showroom Sales Assistant Name Role Phone JOE CHRIS Unavailable PROBLEMS Type Condition ICD9-CM Code [id number] Code Onset Dates Condition S tatus SNOMED Code Problem Insomnia G47.00 Active 996523397 Problem Benign essential hypertension I10 Active 5765052 Problem Hyperlipemia E78.5 Active 5937563 4 Problem Edema R60.9 Active 783060396 Problem Morbid obesity E66.01 Active 63183 6002 Problem Severe episode of recurrent major depressive disorder, without psychotic features F33.2 Active 96117005 Problem Vitamin D deficiency E55.9 Active 44077146 Problem Mixed obsessional thoughts and acts F42.2 Active 38012212 Problem Chronic fatigue R53.82 Active 8422 9001 Problem Metabolic syndrome E88.81 Active 2 58058238 Problem Other chronic pain G89.29 Active 8 5881397 Problem Renal insufficiency N28.9 Active 171078815 Problem BMI 45.0-49.9, adult Z68.42 Active 528499808 Problem DANIELA (generalized anxiety disorder) F41.1 Active 47250232 Problem Sciatica, right side M54.31 Active [id number] Problem 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 Active 53933649 ALLERGIES No Information ENCOUNTERS Encounter Location Date Diagnosis [facility] [address] [facility] [id number] [address] [place] [id number] Jan, [facility] [address] [facility] [id number] [place] [address] [id number] Jan, [facility] [address] [facility] [id number] [address] [place] [phone] Dec, Severe episode of recurrent major depressive disorder, without psychotic features F33.2 [facility] [address] [facility] [id number] [address] [place] [phone] Dec, DANIELA (generalized anxiety dis order) F41.1 ; Severe episode of recurrent major depressive disorder, without psychotic features F33.2 ; Mixed obsessional thoughts and acts F42.2 and 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 [facility] [id number] [id number] Nov, [facility] [address] [facility] [id number] [address] [place] [phone] Nov, [facility] [address] [facility] [id number] [address] [place] [phone] Nov, [facility] [address] [facility] [id number] [address] [place] [phone] Nov, DANIELA (generalized anxiety dis order) F41.1 ; Severe episode of recurrent major depressive disorder, without psychotic features F33.2 ; Mixed obsessional thoughts and acts F42.2 and 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 [facility] [address] [facility] [address] [id number][place] [id number] Nov, Morbid obesity E66.01 [facility] [address] [facility] [id number] [address] [place] [phone] Nov, [facility] [address] [facility] [id number] [address] [place] [phone] Nov, DANIELA (generalized anxiety dis order) F41.1 ; Mixed obsessional thoughts and acts F42.2 ; Severe episode of recurrent major depressive disorder, without psychotic features F33.2 and 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 [facility] Jama [facility] [id number][place] [id number] October, Morbid obesity E66.01 [facility] Jama [facility] [address] [id number], [place] [id number] October, Benign essential hypertension I10 and Mo rbid obesity E66.01 [facility] Bender[address] [place] [address] A[id number] [place] [address] [id number] October, [facility] [address] [place] [id number] [address] [place] [phone] October, Severe episode of recurrent major depressive disorder, without psychotic features F33.2 [facility] Jama [facility] [id number] [place] [address] [id number] October, Morbid obesity E66.01 [facility] Bender[address] [place] [id number] [place] [address] [id number] October, [facility] [address] [place] [id number] [address] [place] [phone] October, Severe episode of recurrent major depressive disorder, without psychotic features F33.2 ; DANIELA (generalized anxiety disorder) F41.1 ; Mixed obsessional thoughts and acts F42.2 and 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 [facility] Yulia[address] [place] [id number] [place] [address] [id number] October, Morbid obesity E66.01 [facility] [address] [facility] [id number] [address] [place] [address] [id number] Sep, Dental examination Z01.20 [facility] [id number] [place] [address] [id number] Sep, [facility] [address] [place] [id number] [address] [place] [phone] Sep, Sore in mouth K13.79 and Mor bid obesity E66.01 [facility] [address] [place] [id number] [address] [place] [phone] Sep, Dental examination Z01.20 [facility] [address] [facility] [id number] [address] [place] [address] Sep, Anxiety disorder, unspecifie d F41.9 [facility] T[facility]RIE [facility] [id number], [place] [id number] Sep, Mouth ulcer K12.[address] [id number], [place] [id number] Sep, Morbid obesity E66.01 [facility] [id number], [place] [id number] Sep, Allergic rhinitis, unspecified seasonali ty, unspecified trigger J30.9 and Shortness of breath R06.02 [facility] [id number], [place] [id number] Sep, 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 [facility] [place] [address] [address] [id number], [place] [id number] Aug, Mouth abscess K12.2 ; Mouth ulcer K12.1 ; Bloating R14.0 and Morbid obesity E66.01 [facility] [place] [address] [id number], [place] [id number] Aug, [facility] [id number], [place] [id number] Aug, [facility] [place] [address] [id number], [place] [id number] Jul, Major depressive disorder, recurrent, mo derate F33.1 ; Abscess of arm, left L02.414 ; BMI 45.0-49.9, adult Z68.42 and Morbid obesity E66.01 [facility] [place] [address] [id number], [place] [id number] Jul, [facility] [id number], [place] [id number] Jul, [facility] [place] [address] [id number], [place] [id number] Jun, Pain in right knee M25.561 and Other chr onic pain G89.29 [facility] [place] [address] [id number], [place] [id number] Jun, Benign essential hypertension I10 ; BMI 45.0-49.9, adult Z68.42 ; Morbid obesity E66.01 ; Vitamin D deficiency E55.9 ; Insomnia G47.00 ; 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 ; Edema R60.9 ; Recurrent major depressive disorder, in partial remission F33.41 ; Chronic fatigue R53.82 ; Acute pain of right knee M25.561 ; Metabolic syndrome E88.81 and Irritable mood R45.4 [facility] [address] [facility] [id number] [address] [place] [phone] Jun, [facility] [address] [facility] [address] [id number], [place] [id number] Jun, Irritable mood R45.4 [facility] [address] [facility] [id number] [address] [place] [phone] May, [facility] [address] [facility] [id number] [address] [place] [phone] May, [facility] [address] [facility] [id number] [address] [place] [phone] May, Recurrent major depressive d isorder, in partial remission F33.41 ; Mixed obsessional thoughts and acts F42.2 ; 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 and BMI 45.0-49.9, adult Z68.42 [facility] [address] [facility] [id number] [address] [place] [phone] Apr, [facility] [address] [facility] [id number] [address] [place] [phone] Apr, [facility] [address] [facility] [id number] [address] [place] [phone] Apr, [facility] [address] [facility] [id number] [address] [place] [phone] Apr, [place] [address] [facility] [id number] [address] [place] [phone] Mar, Mixed obsessional thoughts a nd acts F42.2 ; Recurrent major depressive disorder, in partial remission F33.41 ; DANIELA (generalized anxiety disorder) F41.1 and BMI 45.0-49.9, adult Z68.42 [facility] [address] [id number], [place] [id number] Mar, [facility] [place] [address] [id number], [place] [id number] Mar, BMI 45.0-49.9, adult Z68.42 ; Instabilit y of right knee joint M25.361 and Rash R21 [place] [address] [facility] [id number] [address] [place] [phone] Jan, Recurrent major depressive d isorder, in partial remission F33.41 ; Mixed obsessional thoughts and acts F42.2 and BMI 45.0-49.9, adult Z68.42 [facility] [place] [address] [id number], [place] [id number] Jan, [facility] [place] [address] [id number], [place] [id number] Jan, Benign essential hypertension I10 ; BMI 45.0-49.9, adult Z68.42 ; Metabolic syndrome E88.81 and Allergic rhinitis, unspecified seasonality, unspecified trigger J30.9 [place] [address] [facility] [id number] [address] [place] [phone] Dec, DANIELA (generalized anxiety dis order) F41.1 and Depressive disorder, not elsewhere classified F32.9 [facility] [address] [id number], [place] [id number] Dec, Recurrent major depressive disorder, in partial remission F33.41 [facility] [address] [id number], [place] [id number] Dec, [facility] [address] [id number], [place] [id number] Nov, [facility] [address] [id number], [place] [id number] Nov, Recurrent major depressive disorder, in partial remission F33.41 [facility] [address] [facility] [id number] [address] [place] [phone] Nov, Recurrent major depressive d isorder, in partial remission F33.41 ; Mixed obsessional thoughts and acts F42.2 ; DANIELA (generalized anxiety disorder) F41.1 and BMI 45.0-49.9, adult Z68.42 [facility] [address] [id number], [place] [id number] Nov, [facility] [address] [id number], [place] [id number] Nov, Other conjunctivitis of both eyes H10.89 and Sciatica, right side M54.31 [facility] [address] [id number], [place] [id number] Nov, [facility] [address] [id number], [place] [id number] Nov, [facility] [address] [id number], [place] [id number] October, [facility] [address] [id number], [place] [id number] October, [facility] [address] [facility] [id number] [address] [place] [phone] October, BMI 45.0-49.9, adult Z68.42 ; Mixed obsessional thoughts and acts F42.2 ; Recurrent major depressive disorder, in partial remission F33.41 and DANIELA (generalized anxiety disorder) F41.[address] [facility] [address] [id number], [place] [id number] October, Benign essential hypertension I10 ; Morb id obesity E66.01 and BMI 45.0-49.9, adult Z68.[address] [facility] [address] [id number], [place] [id number] Sep, [facility] [id number], [place] [id number] Sep, [facility] [id number], [place] [id number] Sep, [address] [id number], [place] [id number] Sep, Hospital discharge follow-up Z09 ; Aller gic rhinitis, unspecified seasonality, unspecified trigger J30.9 and Shortness of breath R06.[address] [id number], [place] [id number] Sep, Recurrent major depressive disorder, in partial remission F33.[address] [id number], [place] [id number] Aug, Irritable mood R45.4 [place] [address] [place] [phone] Aug, [address] [id number], [place] [id number] Jul, Benign essential hypertension I10 ; Robert a R60.9 and Impacted cerumen of left ear H61.22 [place] [address] [place] [phone] Jul, Major depression F32.9 ; Rec urrent major depressive disorder, in partial remission F33.41 and Anxiety F41.9 [place] [address] [place] [id number] [address] [place] [phone] Jun, Major depression F32.9 ; Rec urrent major depressive disorder, in partial remission F33.41 and Anxiety F41.[address] [id number], [place] [id number] Jun, Major depression F32.9 ; Morbid obesity E66.01 ; Irritable mood R45.4 ; Hand weakness R29.898 and Vitamin D deficiency E55.9 [facility] [address] [id number], [place] [id number] Jun, [facility] [address] [id number], [place] [id number] May, Major depression F32.9 [facility] [address] [facility] [id number] [address] [place] [phone] May, Major depression F32.9 [facility] [address] [id number], [place] [id number] May, BMI 50.0-59.9, adult Z68.43 ; Major depr ession F32.9 ; Anxiety F41.9 ; Hypertrophic toenail L60.2 and Pain of left great toe M79.675 [facility] [address] [id number], [place] [id number] May, Recurrent major depressive disorder, in partial remission F33.41 [facility] [address] [place] [id number] [address] [place] [phone] Apr, [facility] [address] [id number], [place] [id number] Apr, [facility] [address] [facility] [id number] [address] [place] [phone] Apr, Major depression F32.9 [facility] [address] [id number], [place] [id number] Apr, Severe episode of recurrent major depres sive disorder, without psychotic features F33.2 ; Anxiety F41.9 and Insomnia G47.00 [facility] [address] [id number], [place] [id number] Apr, [facility] [address] [facility] [id number] [address] [place] [phone] Apr, [facility] [address] [id number], [place] [id number] Apr, [facility] [address] [id number], [place] [id number] Mar, [facility] [address] [id number], [place] [id number] Mar, Allergic conjunctivitis of both eyes H10 .13 [facility] [address] [facility] [id number] [address] [place] [id number] Mar, Major depression F32.9 [facility] [address] [id number], [place] [id number] Mar, Metabolic syndrome E88.81 ; History of g astric bypass Z98.890 ; Benign essential hypertension I10 ; Allergic conjunctivitis of both eyes H10.13 and Morbid obesity E66.01 [facility] [address] [facility] [id number] [address] [place] [address] Mar, Major depression F32.9 [facility] [address] [facility] [address] [id number], [place] [id number] Feb, [facility] [address] [facility] [id number] [address] [place] [phone] Feb, Major depression F32.9 [facility] [address] [facility] [address] [id number], [place] [id number] Feb, Subacute maxillary sinusitis J01.00 and Bronchitis J40 [place] [address] [facility] [id number] [address] [place] [phone] Feb, Major depressive disorder, r ecurrent, moderate F33.1 [facility] [address] [id number], [place] [id number] Jan, [facility] [address] [id number], [place] [id number] Jan, Acute non-recurrent maxillary sinusitis J01.00 and Skin tag L91.8 [facility] [address] [id number], [place] [id number] Jan, Cough R05 and Sinus congestion R09.81 [facility] [address] [id number], [place] [id number] Jan, [facility] [address] [id number], [place] [id number] Jan, Benign essential hypertension I10 ; Hist ory of gastric bypass Z98.890 and Nausea and vomiting in adult R11.2 [facility] [address] [facility] [id number] [address] [place] [phone] 04 Jan, 2017 Major depressive disorder, r ecurrent, moderate F33.1 [place] [address] [facility] [id number] [address] [place] [phone] Dec, Insomnia G47.00 ; Recurrent major depressive disorder, in partial remission F33.41 and Morbid obesity E66.01 [facility] [address] [facility] [address] [id number], [place] [id number] Dec, [facility] [address] [place] [address] [id number] [place] [address] [id number] Dec, Chronic bacterial conjunctivitis of left eye H10.402 [facility] [address] [place] [address] A[address] [id number], [place] [id number] Nov, [facility] [address] [place] [address] AVE [id number], [place] [id number] Nov, Dental examination Z01.20 [facility] [address] [id number], [place] [id number] Nov, Benign essential hypertension I10 ; Hist ory of gastric bypass Z98.890 and Nausea and vomiting in adult R11.2 [facility] [address] [facility] [id number] [address] [place] [phone] 13 Nov, 2016 Major depressive disorder, r ecurrent, moderate F33.1 ; Generalized anxiety disorder F41.1 and Insomnia due to other mental disorder F51.05 [place] [address] [facility] [id number] [address] [place] [phone] 12 Nov, 2016 Recurrent major depressive d isorder, in partial remission F33.41 ; Insomnia G47.00 and Morbid obesity E66.01 [facility] [address] [id number] Kiesha ESCOBEDO S [id number] October, Abscess of left arm L02.414 [place] [address] [facility] [id number] [address] [place] [address] October, Morbid obesity E66.01 ; Lida r depression F32.9 and Recurrent major depressive disorder, in partial remission F33.[address] [place] [address] [id number], [place] [id number] Sep, Benign essential hypertension I10 ; Morb id obesity E66.01 ; S/P gastric bypass Z98.84 ; Abscess L02.91 and Chronic bacterial conjunctivitis of left eye H10.[address] [id number], [place] [id number] Sep, Dental examination Z01.20 [place] [address] [place] [phone] Sep, Morbid obesity E66.01 ; Lida r depression F32.9 and Recurrent major depressive disorder, in partial remission F33.41 [place] [address] [place] [phone] Jul, [place] [address] [place] [id number] [address] [place] [phone] Jul, Major depressive disorder, r ecurrent, moderate F33.1 [place] [address] [place] [id number] [address] [place] [phone] Jul, Major depressive disorder, r ecurrent, moderate F33.1 and Generalized anxiety disorder F41.[address] [place] [address] [id number], [place] [id number] Jul, Cough R05 [place] [address] [place] [id number] [address] [place] [phone] 16 Jul, 2016 Morbid obesity E66.01 ; Lida r depression F32.9 and Recurrent major depressive disorder, in partial remission F33.[address] [facility] [address] [id number], [place] [id number] Jul, [facility] [address] [id number], [place] [id number] Jul, [facility] [address] [id number], [place] [id number] Jul, Gastroenteritis K52.9 and Cough R05 [facility] [id number] [place] [address] [id number] Jun, Acute bacterial conjunctivitis of left e ye H10.32 [place] [address] [facility] [id number] [address] [place] [id number] Jun, [place] [address] [address] [place] [id number] [address] [place] [phone] Jun, Recurrent major depressive d isorder, in partial remission F33.41 [place] [address] [address] [place] [id number] [address] [place] [phone] May, Major depression F32.9 and M orbid obesity E66.01 [place] [address] [address] [facility] [id number] [address] [place] [phone] May, [facility] [address] [facility] [id number] [place] [id number] May, Thrush B37.0 [facility] [address] [place] [id number] [address] [place] [id number] Apr, Major depressive disorder, r ecurrent, moderate F33.1 [facility] [address] [facility] [id number] [address] [place] [phone] Apr, Insomnia G47.00 ; Major depr ession F32.9 and Recurrent major depressive disorder, in partial remission F33.41 [facility] [address] [facility] [id number] [address] [place] [id number] Apr, [facility] [address] [facility] [id number] [address] [place] [phone] Apr, Major depression F32.9 and R ecurrent major depressive disorder, in partial remission F33.[id number] [id number] [id number] Mar, Benign essential hypertension I10 ; Morb id obesity E66.01 ; Impacted cerumen of both ears H61.23 ; Laceration of finger of right hand, initial encounter S61.219A and Encounter for immunization Z23 [facility] [address] [facility] [id number] [address] [place] [phone] Mar, [facility] [address] [facility] [id number] [address] [place] [phone] Mar, [facility] [address] [facility] [id number] [address] [place] [phone] Mar, [address] [id number] [place] [address] [id number] Feb, Nausea R11.0 ; Blood in the stool K92.1 and Benign essential hypertension I10 [facility] [address] [facility] [id number] [address] [place] [phone] Feb, Major depression F32.9 and R ecurrent major depressive disorder, in partial remission F33.41 [place] [id number] [facility] [address] [id number] [id number] Feb, [address] [id number][place] [id number] Feb, Recurrent major depressive disorder, in partial remission F33.[address] [id number][place] [id number] Jan, [address] [id number], [place] [id number] Jan, Benign essential hypertension I10 ; Robert a R60.9 and Hyperlipidemia, unspecified hyperlipidemia type E78.[address] [id number][place] [id number] Jan, Recurrent major depressive disorder, in partial remission F33.41 [facility] [address] [id number] Kiesha ESCOBEDO S [id number] Jan, [facility] [address] [id number], [place] [id number] Jan, [facility] [address] [id number], [place] [id number] Jan, [facility] [address] [facility] [id number] [address] [place] [phone] Jan, [facility] [address] [facility] [id number] [address] [place] [phone] Dec, [facility] [address] [facility] [id number] [address] [place] [phone] Nov, [facility] [address] [facility] [id number] [address] [place] [phone] Nov, Major depression F32.9 [facility] [address] [facility] [id number] [address] [place] [phone] Nov, [facility] [address] [facility] [id number] [address] [place] [phone] Nov, [facility] [address] [facility] [id number] [address] [place] [id number] Nov, Major depressive disorder, r ecurrent episode, mild F33.0 and Anxiety F41.9 [facility] [address] [id number], [place] [id number] Nov, [facility] [address] [id number], [place] [id number] October, Left elbow pain M25.522 and Other season al allergic rhinitis J30.2 [facility] [address] [id number], [place] [id number] October, [facility] [address] [facility] [id number] [address] [place] [phone] October, Major depressive disorder, r ecurrent, moderate F33.1 [facility] [address] [facility] [id number] [address] [place] [id number] October, Major depression F32.9 [facility] [address] [facility] [id number] [address] [place] [phone] Sep, [place] or callus L84 and Onych omycosis B35.1 [facility] [address] [facility] [id number] [address] [place] [phone] Sep, Major depressive disorder, r ecurrent, moderate F33.1 [facility] [address] [facility] [id number] [address] [place] [phone] Sep, Major depression F32.9 [facility] [address] [facility] [id number] [address] [place] [phone] Sep, Moderate episode of recurren t major depressive disorder F33.1 [facility] [address] [id number], [place] [id number] Sep, Muscle strain T14.8 [facility] [address] [facility] [id number] [address] [place] [phone] Aug, Major depression F32.9 [facility] [address] [facility] [id number] [address] [place] [phone] Aug, Major depression F32.9 [facility] [address] [facility] [id number] [address] [place] [id number] Jul, Morbid obesity E66.01 and Ma cora depression F32.9 [facility] [address] [facility] [id number] [address] [place] [phone] Jul, Depression, major, recurrent , moderate F33.1 [facility] [id number] [place] [address] [id number] Jul, [facility] [address] [facility] [id number] [address] [place] [phone] Jul, [facility] [address] [facility] [id number] [address] [place] [phone] 16 Jul, 2015 Major depression F32.9 and M orbid obesity E66.01 [address] [id number], [place] [id number] 11 Jul, 2015 Type II diabetes mellitus E11.9 ; Callus of foot L84 ; Benign essential hypertension I10 and Renal insufficiency N28.9 [place] [address] [place] [id number] [address] [place] [phone] 09 Jul, 2015 Depression, major, recurrent , moderate F33.1 [place] [address] [facility] [id number] [address] [place] [phone] Jul, Major depression F32.9 [place] [address] [place] [id number] [address] [place] [phone] Jul, [place] [id number] [place] [phone] Jun, Major depression F32.9 [place] [address] [facility] [id number] [address] [place] [phone] Jun, Major depressive disorder, r ecurrent, moderate F33.1 [place] [address] [place] [id number] [address] [place] [phone] Jun, [place] [address] [place] [id number] [address] [place] [phone] Jun, Major depressive disorder, r ecurrent, moderate F33.1 and Major depression F32.[address] [id number], [place] [id number] Jun, Type II diabetes mellitus E11.9 [place] [address] [facility] [id number] [address] [place] [phone] Jun, Depression, major, recurrent , moderate F33.1 [place] [address] [facility] [id number] [address] [place] [phone] May, Major depressive disorder, r ecurrent, moderate F33.1 [facility] [address] [facility] [id number] [address] [place] [phone] May, [address] [id number] [place] [address] [id number] May, Edema R60.9 [facility] [address] [facility] [id number] [address] [place] [address] May, Insomnia G47.00 and Major de pression F32.[address] [id number] [place] [address] [id number] May, Morbid obesity E66.01 ; Edema R60.9 ; Sh ortness of breath R06.02 ; Benign essential hypertension I10 and Renal insufficiency N28.[address] [id number] [place] [address] [id number] May, Hyperlipemia 272.4 and Renal insufficien cy N28.9 [place] [address] [facility] [id number] [address] [place] [phone] Apr, Major depression F32.9 [place] [address] [place] [id number] [address] [place] [phone] Apr, [place] [address] [place] [id number] [address] [place] [phone] Apr, Major depressive disorder, r ecurrent, moderate F33.[address] [id number] [place] [address] [id number] Apr, Type II diabetes mellitus E11.9 ; Benign essential hypertension I10 ; Edema R60.9 and Renal insufficiency N28.9 [place] [address] [facility] [id number] [address] [place] [phone] Mar, Major depressive disorder, r ecurrent, moderate F33.1 [place] [address] [facility] [id number] [address] [place] [phone] Mar, [facility] [address] [facility] [id number] [address] [place] [address] Mar, Major depression F32.[id number] [place] [address] [id number] Mar, Morbid obesity E66.01 ; Benign essential hypertension I10 and Type II diabetes mellitus E11.9 [place] [address] [facility] [id number] [address] [place] [phone] Feb, Major depressive disorder, r ecurrent, moderate F33.1 [place] [address] [place] [id number] [address] [place] [id number] Feb, Major depressive disorder, r ecurrent episode, in partial or unspecified remission 296.35 ; Anxiety state, unspecified 300.00 and Morbid obesity 278.01 [place] [address] [facility] [id number] [address] [place] [id number] Feb, [address] [id number] [place] [address] [id number] 16 Feb, 2015 Vomiting 787.03 and Viral syndrome 079.9 9 [place] [address] [facility] [id number] [address] [place] [id number] 15 Feb, 2015 Major depression, recurrent 296.30 ; Generalized anxiety disorder 300.02 and No condition on [place] II V71.[address] [id number] [place] [address] [id number] 03 Feb, 2015 Skin tag 701.[address] [id number] [address] [place] [id number] Feb, [place] [address] [facility] [id number] [address] [place] [address] Jan, Depression, major, recurrent , moderate 296.[address] [id number] [place] [address] [id number] Jan, Nausea and vomiting 787.01 ; Rib pain on right side 786.50 and Fall on or from sidewalk curb E880.1 [place] [address] [facility] [id number] [address] [place] [phone] Jan, [facility] [address] [facility] [id number] [address] [place] [phone] Jan, Major depressive disorder, r ecurrent episode, in partial or unspecified remission 296.35 and Anxiety state, unspecified 300.00 [facility] [address] [place] [address] AVE [id number], [place] [id number] Jan, [facility] [address] [place] [id number] [address] [place] [address] Jan, Depression, major, recurrent , moderate 296.[address] [address] Jan, Major depression, recurrent 296.30 ; No condition on [place] II V71.09 and No condition on axis III V71.09 [facility] [address] [place], [place] [address] [id number], [place] [id number] Jan, Drug-induced nausea and vomiting 787.01 [place] [id number] [place] [address] Jan, Depression, major, recurrent , moderate 296.32 [place] [id number] [address] [place] [phone] Dec, Depression, major, recurrent , moderate 296.32 [facility] [address] [place], [place] [address] [id number], [place] [id number] Dec, Morbid obesity 278.01 ; Metabolic syndro me 277.7 ; Hyperlipemia 272.4 ; Benign essential hypertension 401.1 ; Dietary counseling V65.3 ; Exercise counseling V65.41 and Inflamed skin tag 701.9 [place] [id number] [address] [place] [phone] Dec, Depression, major, recurrent , moderate 296.32 [place] [id number] [address] [place] [phone] Dec, [address] [place] [address] Dec, Major depression, recurrent 296.30 ; Anxiety, generalized 300.02 and No condition on [place] II V71.09 [place] [address] [place] [id number] Dec, Depression, major, recurrent , moderate 296.32 [place] [address] [place] [id number] Dec, Major depressive disorder, r ecurrent episode, moderate 296.32 [place] [address] [place] [id number] Dec, Depression, major, recurrent , moderate 296.32 [place] [address] [place] [id number] Dec, Depression, major, recurrent , moderate 296.32 [place] [address] [place] [id number] Dec, Depression, major, recurrent , moderate 296.32 [place] [address] [address] Dec, Depression, major, recurrent , moderate 296.32 [place] [address] [address] Nov, Depression, major, recurrent , moderate 296.32 [place] [address] [address] Nov, Major depression 296.20 ; So cial phobia 300.23 and No condition on [place] II V71.09 [place] [address] [place] [id number] Nov, Depression, major, recurrent , moderate 296.32 [place] [address] [place] [id number] Nov, Major depressive disorder, r ecurrent episode, moderate 296.32 and Generalized anxiety disorder 300.02 [place] [address] [place] [id number] [place] [id number] 09 Nov, 2014 Depression, major, recurrent , moderate 296.32 [facility] [address] [id number] [address] [place] [phone] 04 Nov, 2014 Depression, major, recurrent , moderate 296.32 [facility] [address] [facility] [id number] [address] [place] [phone] October, Generalized anxiety disorder 300.02 ; No condition on [place] II V71.09 and Major depressive disorder, recurrent 296.30 [facility] [address] [id number] [address] [place] [phone] Sep, [facility] [address] [id number] [address] [place] [phone] Sep, [facility] [address] [id number] [address] [place] [phone] Aug, [facility] [address] [id number] [address] [place] [phone] 24 Aug, 2014 [facility] [address] [id number] [address] [place] [phone] Aug, [facility] [address] [id number] [address] [place] [phone] Aug, [facility] [address] [id number] [address] [place] [phone] Aug, [facility] [address] [id number] [address] [place] [phone] Aug, [facility] [address] [id number] [address] [place] [phone] Aug, [facility] [address] [id number] [address] [place] [phone] Aug, [facility] [address] [id number] [address] [place] [phone] Aug, [facility] [address] [id number] [address] [place] [phone] 13 Aug, 2014 [facility] [address] [id number] [address] [place] [address], [place] [address] 13 Aug, 2014 [facility] [address] [id number] [address] [place] [address], [place] [id number] 13 Aug, 2014 [facility] [address] [id number] [address] [place] [address], [place] [address] Aug, [facility] [address] [id number] [address] [place] [address], [place] [address] Aug, [facility] [address] [id number] [address] [place] [address], [place] [address] Aug, [facility] [address] [id number] [address] [place] [address], [place] [address] Aug, [facility] [address] [id number] [address] [place] [address], [place] [address] Aug, [facility] [address] [id number] [address] [place] [address], [place] [address] Aug, [facility] [address] [id number] [address] [place] [address], [place] [address] Jul, [facility] [address] [id number] [address] [place] [address], [place] [address] Jul, [facility] [address] [id number] [address] [place] [address], [place] [address] Jul, 2014 [facility] [address] [id number] [address] [place] [address], [place] [address] Jul, 2014 [facility] [address] [id number] [address] [place] [address], [place] [address] Jul, [facility] [address] [id number] [address] [place] [address], [place] [address] Jul, 2014 [facility] [address] [id number] [address] [place] [address], [place] [address] Jun, [facility] [address] [id number] [address] [place] [address], [place] [address] Jun, [facility] [address] [id number] [address] [place] [address], [place] [address] Jun, [facility] [address] [id number] [address] [place] [address], [place] [address] Jun, [facility] [address] [id number] [address] [place] [address], [place] [address] Jun, [facility] [address] [id number] [address] [place] [address], [place] [address] Jun, [facility] [address] [id number] [address] [place] [address], [place] [address] Jun, [facility] [address] [id number] [address] [place] [address], [place] [address] Jun, [facility] [address] [id number] [address] [place] [address], [place] [address] Jun, [facility] [address] [id number] [address] [place] [address], [place] [address] Jun, [facility] [address] [id number] [address] [place] [address], [place] [address] Jun, [facility] [address] [id number] [address] [place] [address], [place] [address] Jun, [facility] [id number] [place] [address] [id number] Jun, [facility] [address] [id number] [address] [place] [address], [place] [address] Jun, [facility] [address] [id number] [address] [place] [address], [place] [address] Jun, [facility] [address] [id number] [address] [place] [address], [place] [address] Jun, [facility] [address] [id number] [address] [place] [phone] May, [facility] [address] [id number] [address] [place] [address], [place] [address] May, [facility] [address] [id number] [address] [place] [address], [place] [address] May, [facility] [address] [id number] [address] [place] [address], [place] [address] May, [facility] [address] [id number] [address] [place] [address], [place] [address] Apr, [facility] [address] [id number] [address] [place] [address], [place] [address] Apr, [facility] [address] [id number] [address] [place] [address], [place] [address] Apr, [facility] [address] [id number] [address] [place] [address], [place] [address] Apr, [facility] [address] [id number] [address] [place] [id number] Apr, [facility] [address] [id number] [address] [place] [address], [place] [address] Apr, [facility] [address] [id number] [address] [place] [address], [place] [address] Apr, [facility] [address] [id number] [address] [place] [phone] Apr, [facility] [address] [id number] [address] [place] [phone] Apr, [facility] [address] [id number] [address] [place] [address], [place] [address] Apr, [facility] [address] [id number] [address] [place] [id number] Apr, [facility] [address] [id number] [address] [place] [id number] Apr, [facility] [address] [id number] [address] [place] [address], [place] [address] Apr, [facility] [address] [id number] [address] [place] [address], [place] [address] Apr, [facility] [address] [id number] [address] [place] [address], [place] [address] Apr, [facility] [address] [id number] [address] [place] [address], [place] [address] Apr, [facility] [address] [id number] [address] [place] [address], [place] [address] Apr, [facility] [address] [id number] [address] [place] [address], [place] [address] Apr, [facility] [address] [id number] [address] [place] [address], [place] [address] Apr, [facility] [address] [id number] [address] [place] [address], [place] [address] Apr, [facility] [address] [id number] [address] [place] [address], [place] [address] Mar, [facility] [address] [id number] [address] [place] [address], [place] [address] Mar, [facility] [address] [id number] [address] [place] [address], [place] [address] Mar, [facility] [address] [id number] [address] [place] [address], [place] [address] Mar, [facility] [address] [id number] [address] [place] [address], [place] [id number] Mar, [facility] [address] [id number] [address] [place] [address], [place] [id number] Mar, [facility] [address] [id number] [address] [place] [address], [place] [address] Mar, [facility] [address] [id number] [address] [place] [address], [place] [address] Mar, [facility] [address] [id number] [address] [place] [address], [place] [address] Mar, [facility] [address] [id number] [address] [place] [address], [place] [address] Mar, [facility] [address] [id number] [address] [place] [address], [place] [address] Feb, [facility] [address] [id number] [address] [place] [address], [place] [address] Feb, [facility] [address] [id number] [address] [place] [address], [place] [address] Feb, [facility] [address] [id number] [address] [place] [address], [place] [address] Feb, [facility] [address] [id number] [address] [place] [address], [place] [address] Jan, [facility] [address] [id number] [address] [place] [address], [place] [address] Jan, [facility] [address] [id number] [address] [place] [address], [place] [address] Jan, [facility] [address] [id number] [address] [place] [address], [place] [address] Jan, [facility] [address] [id number] [address] [place] [address], [place] [address] Jan, [facility] [address] [id number] [address] [place] [address], [place] [address] Jan, [facility] [address] [id number] [address] [place] [address], [place] [address] Dec, [facility] [address] [id number] [address] [place] [address], [place] [address] Dec, [facility] [address] [id number] [address] [place] [address], [place] [id number] Nov, [facility] [address] [id number] [address] [place] [address], [place] [id number] Nov, [facility] [address] [id number] [facility] [place] [address] Nov, [facility] [address] [id number] [address] [place] [address], [place] [address] Nov, [facility] [address] [id number] [address] [place] [address], [place] [address] Nov, [facility] [address] [id number] [address] [place] [address], [place] [address] Nov, [facility] [address] [id number] [address] [place] [address], [place] [id number] Sep, [facility] [address] [id number] [address] [place] [address], [place] [address] Sep, [facility] [address] [id number] [address] [place] [address], [place] [address] Sep, [facility] [address] [id number] [address] [place] [address], [place] [address] Sep, [facility] [address] [id number] [address] [place] [address], [place] [address] Aug, [facility] [address] [id number] [address] [place] [address], [place] [address] Aug, [facility] [address] [id number] [address] [place] [address], [place] [address] Jul, [facility] [address] [id number] [address] [place] [address], [place] [address] Jul, [facility] [address] [id number] [address] [place] [address], [place] [address] Jun, [facility] [address] [id number] [address] [place] [address], [place] [address] Jun, [facility] [address] [id number] [address] [place] [address], [place] [address] Jun, [facility] [address] [id number] [address] [place] [address], [place] [id number] 16 Jun, 2013 [facility] [address] [id number] [address] [place] [address], [place] [address] May, [facility] [address] [id number] [address] [place] [address], [place] [address] May, [facility] [address] [id number] [address] [place] [address], [place] [address] May, [facility] [address] [id number] [address] [place] [address], [place] [address] May, [facility] [address] [id number] [address] [place] [address], [place] [address] May, [facility] [address] [id number] [address] [place] [address], [place] [address] May, [facility] [address] [id number] [address] [place] [address], [place] [address] Apr, [facility] [address] [id number] [address] [place] [address], [place] [address] Apr, [facility] [address] [id number] [address] [place] [address], [place] [address] Apr, [facility] [address] [id number] [address] [place] [address], [place] [address] Apr, [facility] [address] [id number] [address] [place] [address], [place] [address] Mar, [facility] [address] [id number] [address] [place] [address], [place] [address] Mar, [facility] [address] [id number] [address] [place] [address], [place] [address] Mar, [facility] [address] [id number] [address] [place] [address], [place] [address] Mar, [facility] [address] [id number] [address] [place] [address], [place] [address] Feb, [facility] [address] [id number] [id number] Jan, [facility] [address] [id number] [address] [place] [id number] Jan, [facility] [address] [id number] [address] [place] [id number] Dec, [facility] [address] [id number] [address] [place] [id number] Dec, [facility] [address] [id number] [address] [place] [id number] Dec, [facility] [address] [id number] [id number] Dec, [facility] [address] [id number] [address] [place] [id number] Nov, [facility] [address] [id number] [address] [place] [phone] Nov, [facility] [address] [id number] [address] [place] [id number] Nov, [facility] [address] [id number] [address] [place] [id number] Nov, [facility] [address] [id number] [address] [place] [id number] Nov, [facility] [address] [id number] [address] [place] [id number] October, [facility] [address] [id number] [address] [place] [id number] October, [facility] [address] [id number] [address] [place] [phone] Aug, [facility] [address] [id number] [address] [place] [id number] 13 Nov, 2011 IMMUNIZATIONS No Known Immunizations [...] 03/2016 Hospitalization History gastric sleeve Hospitalization History [facility] Trouble with left shoulder blade 08/2017
--- OUTSIDE RECORDS SUMMARY | 2019-11-29 09:16 | XMS REPORT ---
Author Author Curt Hughes 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 Name Role Phone Saul [facility] JASON Unavailable PROBLEMS Type Condition ICD9-CM Code TBT60-VZ Code Onset Dates Condition S tatus SNOMED Code Problem Insomnia G47.00 Active 952333121 Problem Benign essential hypertension I10 Active 1336624 Problem Hyperlipemia E78.5 Active 2065382 4 Problem Edema R60.9 Active 657784023 Problem Morbid obesity E66.01 Active 79304 6002 Problem Severe episode of recurrent major depressive disorder, without psychotic features F33.2 Active 65889806 Problem Vitamin D deficiency E55.9 Active 48252797 Problem Mixed obsessional thoughts and acts F42.2 Active 71249711 Problem Chronic fatigue R53.82 Active 8422 9001 Problem Metabolic syndrome E88.81 Active 2 38207406 Problem Other chronic pain G89.29 Active 8 1331740 Problem Renal insufficiency N28.9 Active 918026730 Problem BMI 45.0-49.9, adult Z68.42 Active 591481947 Problem DANIELA (generalized anxiety disorder) F41.1 Active 58175878 Problem Sciatica, right side M54.31 Active 613677648307090 Problem 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 Active 89246934 ALLERGIES No Information ENCOUNTERS Encounter Location Date Diagnosis [facility] [address] [facility] [id number] [address] [place] [phone] Jan, [facility] [address] [place] [address] [id number] [place] [address] [id number] Jan, [facility] [address] [facility] [id number] [address] [place] [id number] Dec, Severe episode of recurrent major depressive disorder, without psychotic features F33.2 [facility] [address] [facility] [id number] [address] [place] [phone] Dec, DANIELA (generalized anxiety dis order) F41.1 ; Severe episode of recurrent major depressive disorder, without psychotic features F33.2 ; Mixed obsessional thoughts and acts F42.2 and 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 [facility] [address] [facility] [address] [id number] [place] [id number] Dec, Morbid obesity E66.01 [facility] [address] [facility] [id number] [address] [place] [id number] Dec, [facility] [address] [facility] [id number] [address] [place] [id number] Dec, [address] [phone] Nov, [facility] [address] [facility] [address] [id number] [place] [id number] Nov, [facility] [address] [facility] [id number] [address] [place] [phone] Nov, [facility] [address] [facility] [id number] [address] [place] [id number] Nov, [facility] [address] [facility] [id number] [address] [place] [phone] Nov, DANIELA (generalized anxiety dis order) F41.1 ; Severe episode of recurrent major depressive disorder, without psychotic features F33.2 ; Mixed obsessional thoughts and acts F42.2 and 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 [facility] [address] [facility] [address] [id number] [place] [id number] Nov, Morbid obesity E66.01 [facility] [address] [facility] [id number] [address] [place] [phone] Nov, [facility] [address] [facility] [id number] [address] [place] [phone] Nov, DANIELA (generalized anxiety dis order) F41.1 ; Mixed obsessional thoughts and acts F42.2 ; Severe episode of recurrent major depressive disorder, without psychotic features F33.2 and 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 [facility] [address] [facility] [id number] [place] [id number] October, Morbid obesity E66.01 [facility] [id number] [place] [id number] October, Benign essential hypertension I10 and Mo rbid obesity E66.01 [facility] [address]ender[address] [place] [address] AVE [id number] [place] [address] [id number] October, [facility] [address] [place] [id number] [address] [place] [id number] October, Severe episode of recurrent major depressive disorder, without psychotic features F33.2 [facility] [id number] [place] [address] [id number] October, Morbid obesity E66.01 [facility] [address]ender[address] [place] [address] [id number] [place] [address] [id number] October, [facility] [address] [place] [id number] [address] [place] [phone] October, Severe episode of recurrent major depressive disorder, without psychotic features F33.2 ; DANIELA (generalized anxiety disorder) F41.1 ; Mixed obsessional thoughts and acts F42.2 and 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 [id number] [address] [place] [address] [id number] Sep, Dental examination Z01.20 [facility] [address]ia[address] [place] [address] AV [id number] [place] [address] [id number] Sep, [facility] [address] [place] [id number] [address] [place] [phone] Sep, Sore in mouth K13.79 and Mor bid obesity E66.01 [facility] [address] [place] [id number] [address] [place] [id number] Sep, Dental examination Z01.20 [facility] [address] [facility] [id number] [address] [place] [address] Sep, Anxiety disorder, unspecifie d F41.9 [facility] [place] [address] [address] [id number] [place] [id number] Sep, Mouth ulcer K12.[address] [id number] [place], [place] [id number] Sep, Morbid obesity E66.[address] [id number] [place], [place] [id number] Sep, Allergic rhinitis, unspecified seasonali ty, unspecified trigger J30.9 and Shortness of breath R06.02 [facility] [id number] [place] [id number] Sep, 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 [facility] [id number] [place] [id number] Aug, Mouth abscess K12.2 ; Mouth ulcer K12.1 ; Bloating R14.0 and Morbid obesity E66.01 [facility] [id number] [place] [id number] Aug, [facility] [id number] [place] [id number] Aug, [facility] [place] [address] [id number] [place] [id number] Jul, Major depressive disorder, recurrent, mo derate F33.1 ; Abscess of arm, left L02.414 ; BMI 45.0-49.9, adult Z68.42 and Morbid obesity E66.01 [facility] [place] [address] [address] [id number] [place] [id number] Jul, [facility] [id number] [place], [place] [id number] Jul, [facility] [place] [address] [id number] [place] [id number] Jun, Pain in right knee M25.561 and Other chr onic pain G89.29 [facility] [address] [id number] [place], [place] [id number] Jun, Benign essential hypertension I10 ; BMI 45.0-49.9, adult Z68.42 ; Morbid obesity E66.01 ; Vitamin D deficiency E55.9 ; Insomnia G47.00 ; 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 ; Edema R60.9 ; Recurrent major depressive disorder, in partial remission F33.41 ; Chronic fatigue R53.82 ; Acute pain of right knee M25.561 ; Metabolic syndrome E88.81 and Irritable mood R45.4 [facility] [address] [facility] [id number] [address] [place] [id number] Jun, [facility] [id number] [place] [id number] Jun, Irritable mood R45.4 [facility] [address] [facility] [id number] [address] [place] [phone] May, [facility] [address] [facility] [id number] [address] [place] [phone] May, [facility] [address] [facility] [id number] [address] [place] [id number] May, Recurrent major depressive d isorder, in partial remission F33.41 ; Mixed obsessional thoughts and acts F42.2 ; 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 and BMI 45.0-49.9, adult Z68.42 [facility] [address] [facility] [id number] [address] [place] [id number] Apr, [facility] [address] [facility] [id number] [address] [place] [phone] Apr, [facility] [address] [facility] [id number] [address] [place] [phone] 14 Apr, 2018 [facility] [address] [facility] [id number] [address] [place] [phone] Apr, [place] [address] [facility] [id number] [address] [place] [id number] Mar, Mixed obsessional thoughts a nd acts F42.2 ; Recurrent major depressive disorder, in partial remission F33.41 ; DANIELA (generalized anxiety disorder) F41.1 and BMI 45.0-49.9, adult Z68.42 [facility] [place] [address] [id number] [place] [id number] Mar, [facility] [place] [address] [id number] [place] [id number] Mar, BMI 45.0-49.9, adult Z68.42 ; Instabilit y of right knee joint M25.361 and Rash R21 [place] [address] [facility] [id number] [address] [place] [phone] Jan, Recurrent major depressive d isorder, in partial remission F33.41 ; Mixed obsessional thoughts and acts F42.2 and BMI 45.0-49.9, adult Z68.[address] [place] [id number] [id number] [place] [id number] Jan, [facility] [place] [address] [id number] [place] [id number] Jan, Benign essential hypertension I10 ; BMI 45.0-49.9, adult Z68.42 ; Metabolic syndrome E88.81 and Allergic rhinitis, unspecified seasonality, unspecified trigger J30.9 [place] [address] [facility] [id number] [address] [place] [id number] Dec, DANIELA (generalized anxiety dis order) F41.1 and Depressive disorder, not elsewhere classified F32.9 [facility] [place] [address] [id number] [place] [id number] Dec, Recurrent major depressive disorder, in partial remission F33.41 [facility] [address] [id number] [place], [place] [id number] Dec, [facility] [place] [address] [id number] [place], [place] [id number] Nov, [facility] [address] [id number] [place] [id number] Nov, Recurrent major depressive disorder, in partial remission F33.41 [facility] [address] [facility] [id number] [address] [place] [phone] Nov, Recurrent major depressive d isorder, in partial remission F33.41 ; Mixed obsessional thoughts and acts F42.2 ; DANIELA (generalized anxiety disorder) F41.1 and BMI 45.0-49.9, adult Z68.42 [facility] [address] [id number] [place] [id number] Nov, [facility] [address] [id number] [place] [id number] Nov, Other conjunctivitis of both eyes H10.89 and Sciatica, right side M54.31 [facility] [address] [id number] [place] [id number] Nov, [facility] [address] [id number] [place], [place] [id number] Nov, [facility] [address] [id number] [place] [id number] October, [facility] [address] [id number] [place] [id number] October, [facility] [address] [facility] [id number] [address] [place] [phone] October, BMI 45.0-49.9, adult Z68.42 ; Mixed obsessional thoughts and acts F42.2 ; Recurrent major depressive disorder, in partial remission F33.41 and DANIELA (generalized anxiety disorder) F41.1 [facility] [address] [id number] [place] [id number] October, Benign essential hypertension I10 ; Morb id obesity E66.01 and BMI 45.0-49.9, adult Z68.42 [facility] [address] [id number] [place], [place] [id number] Sep, [facility] [id number] [place] [id number] Sep, [facility] [address] [place] [address] AVE [id number] [place] [id number] Sep, [facility] [id number] [place], [place] [id number] Sep, Hospital discharge follow-up Z09 ; Aller gic rhinitis, unspecified seasonality, unspecified trigger J30.9 and Shortness of breath R06.[address] AV [id number] [place], [place] [id number] Sep, Recurrent major depressive disorder, in partial remission F33.41 [facility] [id number] [place], [place] [id number] Aug, Irritable mood R45.4 [place] [address] [place] [phone] Aug, [facility] AV [id number] [place], [place] [id number] Jul, Benign essential hypertension I10 ; Robert a R60.9 and Impacted cerumen of left ear H61.22 [place] [address] [place] [phone] Jul, Major depression F32.9 ; Rec urrent major depressive disorder, in partial remission F33.41 and Anxiety F41.9 [place] [address] [place] [id number] [address] [place] [phone] Jun, Major depression F32.9 ; Rec urrent major depressive disorder, in partial remission F33.41 and Anxiety F41.9 [facility] [id number] [place] [id number] Jun, Major depression F32.9 ; Morbid obesity E66.01 ; Irritable mood R45.4 ; Hand weakness R29.898 and Vitamin D deficiency E55.9 [facility] [address] [id number] [place] [id number] Jun, [facility] [address] [id number] [place], [place] [id number] May, Major depression F32.9 [place] [address] [place] [id number] [address] [place] [id number] May, Major depression F32.9 [facility] [address] [id number] [place], [place] [id number] May, BMI 50.0-59.9, adult Z68.43 ; Major depr ession F32.9 ; Anxiety F41.9 ; Hypertrophic toenail L60.2 and Pain of left great toe M79.[address] [place] [id number] [place] [address] [id number] May, Recurrent major depressive disorder, in partial remission F33.41 [place] [address] [place] [id number] [address] [place] [phone] Apr, [place] [address] [id number] [place] [address] [id number] Apr, [facility] [address] [facility] [id number] [address] [place] [phone] Apr, Major depression F32.[address] [place] [id number] [place] [address] [id number] Apr, Severe episode of recurrent major depres sive disorder, without psychotic features F33.2 ; Anxiety F41.9 and Insomnia G47.00 [facility] [id number] [place] [address] [id number] Apr, [facility] [address] [facility] [id number] [address] [place] [phone] Apr, [facility] [id number] [place] [address] [id number] Apr, [facility] [address] [id number] [place], [place] [id number] Mar, [facility] [address] [id number] [place], [place] [id number] Mar, Allergic conjunctivitis of both eyes H10 .13 [facility] [address] [facility] [id number] [address] [place] [phone] Mar, Major depression F32.9 [facility] [address] [id number] [place] [id number] Mar, Metabolic syndrome E88.81 ; History of g astric bypass Z98.890 ; Benign essential hypertension I10 ; Allergic conjunctivitis of both eyes H10.13 and Morbid obesity E66.01 [facility] [address] [facility] [id number] [address] [place] [phone] Mar, Major depression F32.9 [place] [id number] [facility] [address] [id number] [place] [id number] Feb, [facility] [address] [facility] [id number] [address] [place] [phone] Feb, Major depression F32.9 [place] [id number] [facility] [address] [id number] [place] [id number] Feb, Subacute maxillary sinusitis J01.00 and Bronchitis J40 [place] [address] [facility] [id number] [address] [place] [phone] Feb, Major depressive disorder, r ecurrent, moderate F33.1 [facility] [address] [id number] [place], [place] [id number] Jan, [facility] [address] [id number] [place], [place] [id number] Jan, Acute non-recurrent maxillary sinusitis J01.00 and Skin tag L91.8 [facility] [address] [id number] [place], [place] [id number] Jan, Cough R05 and Sinus congestion R09.81 [facility] [address] [id number] [place], [place] [id number] Jan, [facility] [id number] [place] [id number] Jan, Benign essential hypertension I10 ; Hist ory of gastric bypass Z98.890 and Nausea and vomiting in adult R11.2 [facility] [address] [facility] [id number] [address] [place] [phone] 04 Jan, 2017 Major depressive disorder, r ecurrent, moderate F33.1 [place] [address] [facility] [id number] [address] [place] [phone] Dec, Insomnia G47.00 ; Recurrent major depressive disorder, in partial remission F33.41 and Morbid obesity E66.01 [facility] [address] [place] [address] AVE [id number] [place], [place] [id number] Dec, [facility] [id number] [place] [address] [id number] Dec, Chronic bacterial conjunctivitis of left eye H10.402 [facility] [address] [id number] [place], [place] [id number] Nov, [facility] [id number] [place], [place] [id number] Nov, Dental examination Z01.20 [facility] [address] [id number] [place], [place] [id number] Nov, Benign essential hypertension I10 ; Hist ory of gastric bypass Z98.890 and Nausea and vomiting in adult R11.2 [facility] [address] [facility] [id number] [address] [place] [phone] 13 Nov, 2016 Major depressive disorder, r ecurrent, moderate F33.1 ; Generalized anxiety disorder F41.1 and Insomnia due to other mental disorder F51.05 [facility] [address] [facility] [id number] [address] [place] [id number] 12 Nov, 2016 Recurrent major depressive d isorder, in partial remission F33.41 ; Insomnia G47.00 and Morbid obesity E66.01 [facility] [address] [id number] FANNYKiesha S [id number] October, Abscess of left arm L02.414 [place] [address] [facility] [id number] [address] [place] [phone] October, Morbid obesity E66.01 ; Lida r depression F32.9 and Recurrent major depressive disorder, in partial remission F33.41 [facility] [id number] [place] [address] [id number] Sep, Benign essential hypertension I10 ; Morb id obesity E66.01 ; S/P gastric bypass Z98.84 ; Abscess L02.91 and Chronic bacterial conjunctivitis of left eye H10.402 [facility] [id number] [place] [address] [id number] Sep, Dental examination Z01.20 [place] [address] [place] [id number] [place] [phone] Sep, Morbid obesity E66.01 ; Lida r depression F32.9 and Recurrent major depressive disorder, in partial remission F33.41 [place] [address] [phone] Jul, [place] [address] [id number] Jul, Major depressive disorder, r ecurrent, moderate F33.1 [place] [address] [place] [phone] Jul, Major depressive disorder, r ecurrent, moderate F33.1 and Generalized anxiety disorder F41.1 [facility] [id number] [place] [address] [id number] Jul, Cough R05 [place] [address] [place] [id number] [address] [place] [phone] 16 Jul, 2016 Morbid obesity E66.01 ; Lida r depression F32.9 and Recurrent major depressive disorder, in partial remission F33.[address] [facility] [address] [id number] [place], [place] [id number] Jul, [facility] [address] [id number] [place], [place] [id number] Jul, [facility] [id number] [place] [id number] Jul, Gastroenteritis K52.9 and Cough R05 [facility] [id number] [place] [id number] Jun, Acute bacterial conjunctivitis of left e ye H10.32 [facility] [address] [facility] [id number] [address] [place] [phone] Jun, [facility] [address] [facility] [id number] [address] [place] [phone] Jun, Recurrent major depressive d isorder, in partial remission F33.41 [facility] [address] [facility] [id number] [address] [place] [phone] May, Major depression F32.9 and M orbid obesity E66.01 [facility] [address] [facility] [id number] [address] [place] [id number] May, [facility] [address] [facility] [id number] [place] [id number] May, Thrush B37.0 [facility] [address] [facility] [id number] [address] [place] [phone] Apr, Major depressive disorder, r ecurrent, moderate F33.1 [facility] [address] [facility] [id number] [address] [place] [id number] Apr, Insomnia G47.00 ; Major depr ession F32.9 and Recurrent major depressive disorder, in partial remission F33.41 [facility] [address] [facility] [id number] [address] [place] [phone] Apr, [facility] [address] [facility] [id number] [address] [place] [phone] Apr, Major depression F32.9 and R ecurrent major depressive disorder, in partial remission F33.41 [facility] [address] [id number] [place] [id number] Mar, Benign essential hypertension I10 ; Morb id obesity E66.01 ; Impacted cerumen of both ears H61.23 ; Laceration of finger of right hand, initial encounter S61.219A and Encounter for immunization Z23 [facility] [address] [facility] [id number] [address] [place] [id number] 17 Mar, 2016 [facility] [address] [facility] [id number] [address] [place] [phone] Mar, [facility] [address] [facility] [id number] [address] [place] [address] Mar, [id number] [place] [address] [id number] Feb, Nausea R11.0 ; Blood in the stool K92.1 and Benign essential hypertension I10 [facility] [address] [facility] [id number] [address] [place] [id number] Feb, Major depression F32.9 and R ecurrent major depressive disorder, in partial remission F33.41 [place] [id number] [facility] [address] [id number] [place] [id number] Feb, [address] [address] [id number] [place] [id number] Feb, Recurrent major depressive disorder, in partial remission F33.[address] [id number] [place] [id number] Jan, [id number] [place] [address] [id number] Jan, Benign essential hypertension I10 ; Robert a R60.9 and Hyperlipidemia, unspecified hyperlipidemia type E78.[address] [id number] [place], [place] [id number] Jan, Recurrent major depressive disorder, in partial remission F33.41 [facility] [address] [id number] Kiesha ESCOBEDO S [id number] Jan, [facility] [address] [id number] [place] [id number] Jan, [facility] [address] [id number] [place] [id number] Jan, [facility] [address] [facility] [id number] [address] [place] [id number] Jan, [facility] [address] [facility] [id number] [address] [place] [id number] Dec, [facility] [address] [facility] [id number] [address] [place] [phone] Nov, [facility] [address] [facility] [id number] [address] [place] [phone] Nov, Major depression F32.9 [facility] [address] [facility] [id number] [address] [place] [id number] Nov, [facility] [address] [facility] [id number] [address] [place] [id number] Nov, [facility] [address] [facility] [id number] [address] [place] [phone] Nov, Major depressive disorder, r ecurrent episode, mild F33.0 and Anxiety F41.9 [facility] [address] [id number] [place] [id number] Nov, [facility] [address] [id number] [place], [place] [id number] October, Left elbow pain M25.522 and Other season al allergic rhinitis J30.2 [facility] [address] [id number] [place], [place] [id number] October, [facility] [address] [facility] [id number] [address] [place] [id number] October, Major depressive disorder, r ecurrent, moderate F33.1 [facility] [address] [facility] [id number] [address] [place] [phone] October, Major depression F32.9 [facility] [address] [facility] [id number] [address] [place] [id number] Sep, [place] or callus L84 and Onych omycosis B35.1 [facility] [address] [facility] [id number] [address] [place] [address] Sep, Major depressive disorder, r ecurrent, moderate F33.1 [facility] [address] [facility] [id number] [address] [place] [phone] Sep, Major depression F32.9 [facility] [address] [facility] [id number] [address] [place] [phone] Sep, Moderate episode of recurren t major depressive disorder F33.1 [facility] [address] [id number] [place], [place] [id number] Sep, Muscle strain T14.8 [facility] [address] [facility] [id number] [address] [place] [phone] Aug, Major depression F32.9 [facility] [address] [facility] [id number] [address] [place] [id number] Aug, Major depression F32.9 [facility] [address] [facility] [id number] [address] [place] [id number] Jul, Morbid obesity E66.01 and Ma cora depression F32.9 [facility] [address] [facility] [id number] [address] [place] [id number] Jul, Depression, major, recurrent , moderate F33.1 [facility] [address] [id number] [place] [id number] Jul, [facility] [address] [facility] [id number] [address] [place] [id number] Jul, [facility] [address] [facility] [id number] [address] [place] [id number] 16 Jul, 2015 Major depression F32.9 and M orbid obesity E66.[address] [id number] [place], [place] [id number] 11 Jul, 2015 Type II diabetes mellitus E11.9 ; Callus of foot L84 ; Benign essential hypertension I10 and Renal insufficiency N28.9 [place] [address] [facility] [id number] [address] [place] [phone] 09 Jul, 2015 Depression, major, recurrent , moderate F33.1 [place] [address] [facility] [id number] [address] [place] [id number] Jul, Major depression F32.9 [place] [address] [place] [id number] [address] [place] [id number] Jul, [place] [address] [place] [id number] [address] [place] [phone] Jun, Major depression F32.9 [place] [address] [facility] [id number] [address] [place] [id number] Jun, Major depressive disorder, r ecurrent, moderate F33.1 [place] [address] [place] [id number] [address] [place] [id number] Jun, [place] [address] [place] [id number] [address] [place] [id number] Jun, Major depressive disorder, r ecurrent, moderate F33.1 and Major depression F32.[address] [id number] [place], [place] [id number] Jun, Type II diabetes mellitus E11.9 [place] [address] [facility] [id number] [address] [place] [id number] Jun, Depression, major, recurrent , moderate F33.1 [place] [address] [facility] [id number] [address] [place] [id number] May, Major depressive disorder, r ecurrent, moderate F33.1 [facility] [address] [facility] [id number] [address] [place] [address] May, [address] [id number] [place] [address] [id number] May, Edema R60.9 [facility] [address] [facility] [id number] [address] [place] [id number] May, Insomnia G47.00 and Major de pression F32.[address] [id number] [place] [address] [id number] 15 May, 2015 Morbid obesity E66.01 ; Edema R60.9 ; Sh ortness of breath R06.02 ; Benign essential hypertension I10 and Renal insufficiency N28.[address] [id number] [place] [address] [id number] May, Hyperlipemia 272.4 and Renal insufficien cy N28.9 [place] [id number] [facility] [id number] [address] [place] [id number] Apr, Major depression F32.9 [place] [address] [facility] [id number] [address] [place] [id number] Apr, [facility] [address] [facility] [id number] [address] [place] [phone] Apr, Major depressive disorder, r ecurrent, moderate F33.[address] [id number] [place] [address] [id number] Apr, Type II diabetes mellitus E11.9 ; Benign essential hypertension I10 ; Edema R60.9 and Renal insufficiency N28.9 [facility] [address] [facility] [id number] [address] [place] [id number] Mar, Major depressive disorder, r ecurrent, moderate F33.1 [place] [address] [facility] [id number] [address] [place] [id number] Mar, [facility] [address] [facility] [id number] [address] [place] [id number] Mar, Major depression F32.9 [facility] [id number] [place] [address] [id number] Mar, Morbid obesity E66.01 ; Benign essential hypertension I10 and Type II diabetes mellitus E11.9 [place] [address] [facility] [id number] [address] [place] [id number] Feb, Major depressive disorder, r ecurrent, moderate F33.1 [place] [address] [place] [id number] [address] [place] [id number] 24 Feb, 2015 Major depressive disorder, r ecurrent episode, in partial or unspecified remission 296.35 ; Anxiety state, unspecified 300.00 and Morbid obesity 278.01 [place] [address] [facility] [id number] [address] [place] [id number] Feb, [facility] [address] [place] [address] AVE [id number] [place] [address] [id number] 16 Feb, 2015 Vomiting 787.03 and Viral syndrome 079.[address] [id number] [address] [place] [id number] 15 Feb, 2015 Major depression, recurrent 296.30 ; Generalized anxiety disorder 300.02 and No condition on [place] II V71.09 [facility] [address] [place] [address] AVE [id number] [place] [address] [id number] 03 Feb, 2015 Skin tag 701.9 [place] [address] [facility] [id number] [address] [place] [id number] Feb, [place] [address] [facility] [id number] [address] [place] [id number] Jan, Depression, major, recurrent , moderate 296.[address] [id number] [place] [address] [id number] Jan, Nausea and vomiting 787.01 ; Rib pain on right side 786.50 and Fall on or from sidewalk curb E880.1 [place] [address] [facility] [id number] [address] [place] [phone] Jan, [facility] [address] [facility] [id number] [address] [place] [phone] Jan, Major depressive disorder, r ecurrent episode, in partial or unspecified remission 296.35 and Anxiety state, unspecified 300.00 [facility] [address] [place] [address] AVE [id number] [place] [id number] Jan, [facility] [address] [place] [id number] [address] [place] [id number] Jan, Depression, major, recurrent , moderate 296.32 [place] [address] [address] Jan, Major depression, recurrent 296.30 ; No condition on Owent[place] II V71.09 and No condition on axis III V71.09 [facility] [address] [place], [place] [address] [id number] [place] [id number] Jan, Drug-induced nausea and vomiting 787.01 [place] [id number] [place] [address] Jan, Depression, major, recurrent , moderate 296.32 [place] [id number] [address] [place] [id number] Dec, Depression, major, recurrent , moderate 296.32 [facility] [address] [place] [address] AVE [id number] [place] [id number] Dec, Morbid obesity 278.01 ; Metabolic syndro me 277.7 ; Hyperlipemia 272.4 ; Benign essential hypertension 401.1 ; Dietary counseling V65.3 ; Exercise counseling V65.41 and Inflamed skin tag 701.9 [place] [id number] [address] [place] [id number] Dec, Depression, major, recurrent , moderate 296.32 [place] [id number] [address] [place] [id number] Dec, [place] [address] [address] Dec, Major depression, recurrent 296.30 ; Anxiety, generalized 300.02 and No condition on Owent[place] II V71.09 [place] [address] [place] [id number] Dec, Depression, major, recurrent , moderate 296.32 [place] [address] [address] Dec, Major depressive disorder, r ecurrent episode, moderate 296.32 [place] [address] [place] [id number] Dec, Depression, major, recurrent , moderate 296.32 [place] [address] [place] [id number] Dec, Depression, major, recurrent , moderate 296.32 [place] [address] [address] Dec, Depression, major, recurrent , moderate 296.32 [place] [address] [address] Dec, Depression, major, recurrent , moderate 296.32 [place] [address] [address] Nov, Depression, major, recurrent , moderate 296.32 [place] [address] [address] Nov, Major depression 296.20 ; So cial phobia 300.23 and No condition on Owent[place] II V71.09 [place] [address] [place] [id number] Nov, Depression, major, recurrent , moderate 296.32 [place] [address] [address] Nov, Major depressive disorder, r ecurrent episode, moderate 296.32 and Generalized anxiety disorder 300.02 [place] [id number] [place] [id number] 09 Nov, 2014 Depression, major, recurrent , moderate 296.32 [facility] [address] [id number] [address] [place] [id number] 04 Nov, 2014 Depression, major, recurrent , moderate 296.32 [facility] [address] [id number] [address] [place] [phone] October, Generalized anxiety disorder 300.02 ; No condition on Owent[place] II V71.09 and Major depressive disorder, recurrent 296.30 [facility] [address] [id number] [address] [place] [phone] Sep, [facility] [address] [id number] [address] [place] [id number] Sep, [facility] [address] [id number] [address] [place] [phone] Aug, [facility] [address] [id number] [address] [place] [id number] 24 Aug, 2014 [facility] [address] [id number] [address] [place] [id number] Aug, [facility] [address] [id number] [address] [place] [phone] Aug, [facility] [address] [id number] [address] [place] [id number] Aug, [facility] [address] [id number] [address] [place] [phone] Aug, [facility] [address] [id number] [address] [place] [phone] Aug, [facility] [address] [id number] [address] [place] [id number] Aug, [facility] [address] [id number] [address] [place] [phone] Aug, [facility] [address] [id number] [address] [place] [address] [place] [address] 13 Aug, 2014 [facility] [address] [id number] [address] [place] [address], [place] [address] 13 Aug, 2014 [facility] [address] [id number] [address] [place] [address], [place] [address] 13 Aug, 2014 [facility] [address] [id number] [address] [place] [address], [place] [address] 12 Aug, 2014 [facility] [place] [facility] [address] [id number] [address] [place] [address], [place] [address] 12 Aug, 2014 [facility] [address] [id number] [address] [place] [address], [place] [address] Aug, [facility] [address] [id number] [address] [place] [address], [place] [address] Aug, [facility] [address] [id number] [address] [place] [address], [place] [address] Aug, [facility] [address] [id number] [address] [place] [address], [place] [address] Aug, [facility] [address] [id number] [address] [place] [address], [place] [address] Jul, 2014 [facility] [address] [id number] [address] [place] [address], [place] [address] Jul, [facility] [place] [facility] [address] [id number] [address] [place] [address], [place] [address] Jul, 2014 [facility] [place] [facility] [address] [id number] [address] [place] [address], [place] [address] Jul, 2014 [facility] [place] [facility] [address] [id number] [address] [place] [address], [place] [address] Jul, 2014 [facility] [place] [facility] [address] [id number] [address] [place] [address], [place] [address] Jul, 2014 [facility] [place] [facility] [address] [id number] [address] [place] [address], [place] [address] Jun, [facility] [address] [id number] [address] [place] [address], [place] [address] Jun, [facility] [address] [id number] [address] [place] [address], [place] [address] Jun, [facility] [address] [id number] [address] [place] [address], [place] [address] Jun, [facility] [address] [id number] [address] [place] [address], [place] [address] Jun, [facility] [address] [id number] [address] [place] [address], [place] [address] Jun, [facility] [address] [id number] [address] [place] [address], [place] [address] Jun, [facility] [address] [id number] [address] [place] [address], [place] [address] Jun, [facility] [address] [id number] [address] [place] [address], [place] [address] Jun, [facility] [address] [id number] [address] [place] [address], [place] [address] Jun, [facility] [address] [id number] [address] [place] [id number] Jun, [facility] [address] [id number] [address] [place] [address], [place] [address] Jun, [facility] [address] [id number] [place] [id number] Jun, [facility] [address] [id number] [address] [place] [address], [place] [address] Jun, [facility] [address] [id number] [address] [place] [address], [place] [address] Jun, [facility] [address] [id number] [address] [place] [address], [place] [address] Jun, [facility] [address] [id number] [address] [place] [id number] May, [facility] [place] [facility] [address] [id number] [address] [place] [address], [place] [address] May, [facility] [place] [facility] [address] [id number] [address] [place] [address], [place] [address] May, [facility] [place] [facility] [address] [id number] [address] [place] [address], [place] [address] May, [facility] [place] [facility] [address] [id number] [address] [place] [address] Apr, [facility] [place] [facility] [address] [id number] [address] [place] [address], [place] [address] Apr, [facility] [place] [facility] [address] [id number] [address] [place] [address], [place] [address] Apr, [facility] [place] [facility] [address] [id number] [address] [place] [address], [place] [address] Apr, [facility] [place] [facility] [address] [id number] [address] [place] [id number] Apr, [facility] [place] [facility] [address] [id number] [address] [place] [address] Apr, [facility] [place] [facility] [address] [id number] [address] [place] [address], [place] [address] Apr, [facility] [place] [facility] [address] [id number] [address] [place] [address] Apr, [facility] [place] [facility] [address] [id number] [address] [place] [address] Apr, [facility] [address] [id number] [address] [place] [address], [place] [address] Apr, [facility] [address] [id number] [address] [place] [address] Apr, [facility] [address] [id number] [address] [place] [address] Apr, [facility] [address] [id number] [address] [place] [address], [place] [address] Apr, [facility] [address] [id number] [address] [place] [address], [place] [address] Apr, [facility] [address] [id number] [address] [place] [address], [place] [address] Apr, [facility] [address] [id number] [address] [place] [address], [place] [address] Apr, [facility] [address] [id number] [address] [place] [address], [place] [address] Apr, [facility] [address] [id number] [address] [place] [address], [place] [address] Apr, [facility] [address] [id number] [address] [place] [address], [place] [address] Apr, [facility] [address] [id number] [address] [place] [address], [place] [address] Apr, [facility] [address] [id number] [address] [place] [address], [place] [address] Mar, [facility] [address] [id number] [address] [place] [address], [place] [address] Mar, [facility] [address] [id number] [address] [place] [address], [place] [address] Mar, [facility] [address] [id number] [address] [place] [address], [place] [address] Mar, [facility] [address] [id number] [address] [place] [address], [place] [address] Mar, [facility] [address] [id number] [address] [place] [address], [place] [address] Mar, [facility] [address] [id number] [address] [place] [address], [place] [address] Mar, [facility] [address] [id number] [address] [place] [address], [place] [address] Mar, [facility] [address] [id number] [address] [place] [address], [place] [address] Mar, [facility] [address] [id number] [address] [place] [address], [place] [address] Mar, [facility] [address] [id number] [address] [place] [address], [place] [address] Feb, [facility] [address] [id number] [address] [place] [address], [place] [address] Feb, [facility] [address] [id number] [address] [place] [address], [place] [address] Feb, [facility] [address] [id number] [address] [place] [address], [place] [address] Feb, [facility] [address] [id number] [address] [place] [address], [place] [address] Jan, [facility] [address] [id number] [address] [place] [address], [place] [address] Jan, [facility] [address] [id number] [address] [place] [address], [place] [address] Jan, [facility] [address] [id number] [address] [place] [address], [place] [address] Jan, [facility] [address] [id number] [address] [place] [address], [place] [address] Jan, [facility] [address] [id number] [address] [place] [address], [place] [address] Jan, [facility] [address] [id number] [address] [place] [address], [place] [address] Dec, [facility] [address] [id number] [address] [place] [address], [place] [address] Dec, [facility] [address] [id number] 13 [place] [address], [place] [address] Nov, [facility] [address] [id number] [address] [place] [address], [place] [address] Nov, [facility] [address] [id number] [address] [place] [address], [place] [address] Nov, [facility] [address] [id number] [address] [place] [address], [place] [address] Nov, [facility] [address] [id number] [address] [place] [address], [place] [address] Nov, [facility] [address] [id number] [address] [place] [address], [place] [address] Nov, [facility] [address] [id number] [address] [place] [address], [place] [address] Sep, [facility] [address] [id number] [address] [place] [address], [place] [address] Sep, [facility] [address] [id number] [address] [place] [address], [place] [address] Sep, [facility] [address] [id number] [address] [place] [address], [place] [address] Sep, [facility] [address] [id number] [address] [place] [address], [place] [address] Aug, [facility] [address] [id number] [address] [place] [address], [place] [address] Aug, [facility] [address] [id number] [address] [place] [address], [place] [address] Jul, [facility] [address] [id number] [address] [place] [address], [place] [address] Jul, [facility] [address] [id number] [address] [place] [address], [place] [address] Jun, [facility] [address] [id number] [address] [place] [address], [place] [address] Jun, [facility] [address] [id number] [address] [place] [address], [place] [address] Jun, [facility] [address] [id number] [address] [place] [address], [place] [address] 16 Jun, 2013 [facility] [address] [id number] [address] [place] [address], [place] [address] May, [facility] [address] [id number] [address] [place] [address], [place] [address] May, [facility] [address] [id number] [address] [place] [address], [place] [address] May, [facility] [address] [id number] [address] [place] [address], [place] [address] May, [facility] [address] [id number] [address] [place] [address], [place] [address] May, [facility] [address] [id number] [address] [place] [address], [place] [address] May, [facility] [address] [id number] [address] [place] [address], [place] [address] Apr, [facility] [address] [id number] [address] [place] [address], [place] [address] Apr, [facility] [address] [id number] [address] [place] [address], [place] [address] Apr, [facility] [address] [id number] [address] [place] [address], [place] [address] Apr, [facility] [address] [id number] [address] [place] [address], [place] [address] Mar, [facility] [address] [id number] [address] [place] [address], [place] [address] Mar, [facility] [address] [id number] [address] [place] [address], [place] [address] Mar, [facility] [address] [id number] [address] [place] [address], [place] [address] Mar, [facility] [address] [id number] [address] [place] [address], [place] [address] Feb, [facility] [address] [id number] [id number] Jan, [facility] [address] [id number] [address] [place] [address] Jan, [facility] [address] [id number] [address] [place] [address] Dec, [facility] [address] [id number] [address] [place] [address] Dec, [facility] [address] [id number] [address] [place] [address] Dec, [facility] [address] [id number] [place] [id number] Dec, [facility] [address] [id number] [address] [place] [address] Nov, [facility] [address] [id number] [address] [place] [address] Nov, [facility] [address] [id number] [address] [place] [address] Nov, [facility] [address] [id number] [address] [place] [address] Nov, [facility] [address] [id number] [address] [place] [address] Nov, [facility] [address] [id number] [address] [place] [address] October, [facility] [address] [id number] [address] [place] [id number] October, [facility] [address] [id number] [address] [place] [address] Aug, [facility] [address] [id number] [address] [place] [address] Nov, IMMUNIZATIONS No Known Immunizations SOCIAL HISTORY Never Assessed REASON FOR VISIT PLAN OF CARE VITAL SIGNS MEDICATIONS Unknown Medications RESULTS No Results PROCEDURES Procedure Date Ordered Result Body Site COMPREHENSIVE CARE MANAGEMENT September 01, 2014 INSTRUCTIONS MEDICATIONS ADMINISTERED No Known Medications [...] 03/2016 Hospitalization History gastric sleeve Hospitalization History [facility] ER Trouble with left shoulder blade 08/2017
--- OUTSIDE RECORDS SUMMARY | 2019-11-29 09:17 | XMS REPORT ---
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 Name Role Phone JOE CHRIS Unavailable PROBLEMS Type Condition ICD9-CM Code HGI49-BY Code Onset Dates Condition S tatus SNOMED Code Problem Insomnia G47.00 Active 483944327 Problem Benign essential hypertension I10 Active 3238219 Problem Hyperlipemia E78.5 Active 5875472 4 Problem Edema R60.9 Active 761997698 Problem Morbid obesity E66.01 Active 49425 6002 Problem Severe episode of recurrent major depressive disorder, without psychotic features F33.2 Active 76177336 Problem Vitamin D deficiency E55.9 Active 31205382 Problem Mixed obsessional thoughts and acts F42.2 Active 24303200 Problem Chronic fatigue R53.82 Active 8422 9001 Problem Metabolic syndrome E88.81 Active 2 83092075 Problem Other chronic pain G89.29 Active 8 8429744 Problem Renal insufficiency N28.9 Active 717489341 Problem BMI 45.0-49.9, adult Z68.42 Active 280582019 Problem DANIELA (generalized anxiety disorder) F41.1 Active 87396132 Problem Sciatica, right side M54.31 Active [id number] Problem 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 Active 95626049 ALLERGIES No Information ENCOUNTERS Encounter Location Date Diagnosis [facility] [address] [facility] [id number] [address] [place] [id number] Jan, [facility] [address] [facility] [id number] [place] [address] [id number] Jan, [facility] [address] [facility] [id number] [address] [place] [id number] Dec, Severe episode of recurrent major depressive disorder, without psychotic features F33.2 [facility] [address] [facility] [id number] [address] [place] [phone] Dec, DANIELA (generalized anxiety dis order) F41.1 ; Severe episode of recurrent major depressive disorder, without psychotic features F33.2 ; Mixed obsessional thoughts and acts F42.2 and 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 [facility] [address] [address] [address] [id number], [place] [id number] Dec, Morbid obesity E66.01 [facility] [address] [facility] [id number] [address] [place] [id number] Dec, [facility] [address] [facility] [id number] [address] [place] [phone] Dec, [address] [phone] Nov, [facility] [address] [facility] [id number][place] [id number] Nov, [facility] [address] [facility] [id number] [address] [place] [phone] Nov, [facility] [address] [facility] [id number] [address] [place] [phone] Nov, [facility] [address] [facility] [id number] [address] [place] [phone] Nov, DANIELA (generalized anxiety dis order) F41.1 ; Severe episode of recurrent major depressive disorder, without psychotic features F33.2 ; Mixed obsessional thoughts and acts F42.2 and 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 [facility] [address] [id number], [place] [id number] Nov, Morbid obesity E66.01 [facility] [address] [facility] [id number] [address] [place] [id number] Nov, [facility] [address] [facility] [id number] [address] [place] [id number] Nov, DANIELA (generalized anxiety dis order) F41.1 ; Mixed obsessional thoughts and acts F42.2 ; Severe episode of recurrent major depressive disorder, without psychotic features F33.2 and 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 [facility] [address] [facility] [address] [id number], [place] [id number] October, Morbid obesity E66.[address] [facility] [address] [id number], [place] [id number] October, Benign essential hypertension I10 and Mo rbid obesity E66.01 [facility] Bender[address] [place] [address] A[id number] [place] [address] [id number] October, [facility] [address] [place] [id number] [address] [place] [id number] October, Severe episode of recurrent major depressive disorder, without psychotic features F33.2 [facility] [id number] [place] [address] [id number] October, Morbid obesity E66.01 [facility] Bender[address] [place] [address] [id number] [place] [address] [id number] October, [facility] [address] [place] [id number] [address] [place] [id number] October, Severe episode of recurrent major depressive disorder, without psychotic features F33.2 ; DANIELA (generalized anxiety disorder) F41.1 ; Mixed obsessional thoughts and acts F42.2 and 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 [facility] Yulia[address] [place] [id number] [place] [address] [id number] October, Morbid obesity E66.01 [facility] [address] [facility] [id number] [address] [place] [address] [id number] Sep, Dental examination Z01.20 [facility] [id number] [place] [address] [id number] Sep, [facility] [address] [place] [id number] [address] [place] [id number] Sep, Sore in mouth K13.79 and Mor bid obesity E66.01 [facility] [address] [place] [id number] [address] [place] [phone] Sep, Dental examination Z01.20 [facility] [address] [facility] [id number] [address] [place] [address] Sep, Anxiety disorder, unspecifie d F41.9 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 [facility] [address] [id number], [place] [id number] Aug, Mouth abscess K12.2 ; Mouth ulcer K12.1 ; Bloating R14.0 and Morbid obesity E66.01 [facility] [address] [id number], [place] [id number] Aug, [facility] [id number], [place] [id number] Aug, [facility] [address] [id number], [place] [id number] Jul, Major depressive disorder, recurrent, mo derate F33.1 ; Abscess of arm, left L02.414 ; BMI 45.0-49.9, adult Z68.42 and Morbid obesity E66.01 [facility] [address] [id number], [place] [id number] Jul, [facility] [id number], [place] [id number] Jul, [facility] [address] [id number], [place] [id number] Jun, Pain in right knee M25.561 and Other chr onic pain G89.29 [facility] [address] [id number], [place] [id number] Jun, Benign essential hypertension I10 ; BMI [...] R45.4 [facility] [address] [facility] [id number] [address] [place] [phone] Jun, [facility] [address] [facility] [address] [id number], [place] [id number] Jun, Irritable mood R45.4 [facility] [address] [facility] [id number] [address] [place] [phone] May, [facility] [address] [facility] [id number] [address] [place] [phone] May, [facility] [address] [facility] [id number] [address] [place] [phone] May, Recurrent major depressive d isorder, in partial remission F33.41 ; Mixed obsessional thoughts and acts F42.2 ; 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 and BMI 45.0-49.9, adult Z68.42 [facility] [address] [facility] [id number] [address] [place] [phone] Apr, [facility] [address] [facility] [id number] [address] [place] [id number] Apr, [facility] [address] [facility] [id number] [address] [place] [phone] Apr, [facility] [address] [facility] [id number] [address] [place] [phone] Apr, [place] [address] [facility] [id number] [address] [place] [phone] Mar, Mixed obsessional thoughts a nd acts F42.2 ; Recurrent major depressive disorder, in partial remission F33.41 ; DANIELA (generalized anxiety disorder) F41.1 and BMI 45.0-49.9, adult Z68.42 [facility] [address] [id number], [place] [id number] Mar, [facility] [address] [id number], [place] [id number] Mar, BMI 45.0-49.9, adult Z68.42 ; Instabilit y of right knee joint M25.361 and Rash R21 [place] [address] [facility] [id number] [address] [place] [phone] Jan, Recurrent major depressive d isorder, in partial remission F33.41 ; Mixed obsessional thoughts and acts F42.2 and BMI 45.0-49.9, adult Z68.42 [facility] [address] [id number], [place] [id number] Jan, [facility] [address] [id number], [place] [id number] Jan, Benign essential hypertension I10 ; BMI 45.0-49.9, adult Z68.42 ; Metabolic syndrome E88.81 and Allergic rhinitis, unspecified seasonality, unspecified trigger J30.9 [place] [address] [facility] [id number] [address] [place] [id number] Dec, DANIELA (generalized anxiety dis order) F41.1 and Depressive disorder, not elsewhere classified F32.9 [facility] [address] [id number], [place] [id number] Dec, Recurrent major depressive disorder, in partial remission F33.41 [facility] [address] [id number], [place] [id number] Dec, [facility] [address] [id number], [place] [id number] Nov, [facility] [address] [id number], [place] [id number] Nov, Recurrent major depressive disorder, in partial remission F33.41 [facility] [address] [facility] [id number] [address] [place] [id number] Nov, Recurrent major depressive d isorder, in partial remission F33.41 ; Mixed obsessional thoughts and acts F42.2 ; DANIELA (generalized anxiety disorder) F41.1 and BMI 45.0-49.9, adult Z68.42 [facility] [address] [id number], [place] [id number] Nov, [facility] [address] [id number], [place] [id number] Nov, Other conjunctivitis of both eyes H10.89 and Sciatica, right side M54.31 [facility] [address] [id number], [place] [id number] Nov, [facility] [address] [id number], [place] [id number] Nov, [facility] [address] [id number], [place] [id number] October, [facility] [address] [id number], [place] [id number] October, [facility] [address] [facility] [id number] [address] [place] [phone] October, BMI 45.0-49.9, adult Z68.42 ; Mixed obsessional thoughts and acts F42.2 ; Recurrent major depressive disorder, in partial remission F33.41 and DANIELA (generalized anxiety disorder) F41.[address] [facility] [address] [id number], [place] [id number] October, Benign essential hypertension I10 ; Morb id obesity E66.01 and BMI 45.0-49.9, adult Z68.[address] [facility] [address] [id number], [place] [id number] Sep, [facility] [id number], [place] [id number] Sep, [facility] [id number], [place] [id number] Sep, [address] [id number], [place] [id number] Sep, Hospital discharge follow-up Z09 ; Aller gic rhinitis, unspecified seasonality, unspecified trigger J30.9 and Shortness of breath R06.[address] [id number], [place] [id number] Sep, Recurrent major depressive disorder, in partial remission F33.[address] [id number], [place] [id number] Aug, Irritable mood R45.4 [place] [address] [place] [phone] Aug, [address] [id number], [place] [id number] Jul, Benign essential hypertension I10 ; Robert a R60.9 and Impacted cerumen of left ear H61.22 [place] [address] [place] [id number] Jul, Major depression F32.9 ; Rec urrent major depressive disorder, in partial remission F33.41 and Anxiety F41.9 [place] [address] [place] [id number] [address] [place] [phone] Jun, Major depression F32.9 ; Rec urrent major depressive disorder, in partial remission F33.41 and Anxiety F41.[address] [id number], [place] [id number] Jun, Major depression F32.9 ; Morbid obesity E66.01 ; Irritable mood R45.4 ; Hand weakness R29.898 and Vitamin D deficiency E55.9 [facility] [address] [id number], [place] [id number] Jun, [facility] [address] [id number], [place] [id number] May, Major depression F32.9 [facility] [address] [facility] [id number] [address] [place] [phone] May, Major depression F32.9 [facility] [address] [id number], [place] [id number] May, BMI 50.0-59.9, adult Z68.43 ; Major depr ession F32.9 ; Anxiety F41.9 ; Hypertrophic toenail L60.2 and Pain of left great toe M79.675 [facility] [address] [id number], [place] [id number] May, Recurrent major depressive disorder, in partial remission F33.41 [facility] [address] [place] [id number] [address] [place] [phone] Apr, [facility] [address] [id number], [place] [id number] Apr, [facility] [address] [facility] [id number] [address] [place] [phone] Apr, Major depression F32.9 [facility] [address] [id number], [place] [id number] Apr, Severe episode of recurrent major depres sive disorder, without psychotic features F33.2 ; Anxiety F41.9 and Insomnia G47.00 [facility] [address] [id number], [place] [id number] Apr, [facility] [address] [facility] [id number] [address] [place] [id number] Apr, [facility] [address] [id number], [place] [id number] Apr, [facility] [address] [id number], [place] [id number] Mar, [facility] [address] [id number], [place] [id number] Mar, Allergic conjunctivitis of both eyes H10 .13 [facility] [address] [facility] [id number] [address] [place] [address] Mar, Major depression F32.9 [facility] [address] [id number], [place] [id number] Mar, Metabolic syndrome E88.81 ; History of g astric bypass Z98.890 ; Benign essential hypertension I10 ; Allergic conjunctivitis of both eyes H10.13 and Morbid obesity E66.01 [facility] [address] [facility] [id number] [address] [place] [phone] Mar, Major depression F32.9 [facility] [address] [facility] [address] [id number], [place] [id number] Feb, [facility] [address] [facility] [id number] [address] [place] [phone] Feb, Major depression F32.9 [facility] [address] [facility] [address] [id number], [place] [id number] Feb, Subacute maxillary sinusitis J01.00 and Bronchitis J40 [place] [address] [facility] [id number] [address] [place] [phone] Feb, Major depressive disorder, r ecurrent, moderate F33.1 [facility] [address] [id number], [place] [id number] Jan, [facility] [address] [id number], [place] [id number] Jan, Acute non-recurrent maxillary sinusitis J01.00 and Skin tag L91.8 [facility] [address] [id number], [place] [id number] Jan, Cough R05 and Sinus congestion R09.81 [facility] [address] [id number], [place] [id number] Jan, [facility] [address] [id number], [place] [id number] Jan, Benign essential hypertension I10 ; Hist ory of gastric bypass Z98.890 and Nausea and vomiting in adult R11.2 [facility] [address] [facility] [id number] [address] [place] [phone] 04 Jan, 2017 Major depressive disorder, r ecurrent, moderate F33.1 [place] [address] [facility] [id number] [address] [place] [id number] Dec, Insomnia G47.00 ; Recurrent major depressive disorder, in partial remission F33.41 and Morbid obesity E66.01 [facility] [address] [facility] [id number], [place] [id number] Dec, [facility] [address] [place] [address] [id number] [place] [address] [id number] Dec, Chronic bacterial conjunctivitis of left eye H10.402 [facility] [address] [place] [address] AVE [id number], [place] [id number] Nov, [facility] [address] [place] [address] AVE [id number], [place] [id number] Nov, Dental examination Z01.20 [facility] [id number], [place] [id number] Nov, Benign essential hypertension I10 ; Hist ory of gastric bypass Z98.890 and Nausea and vomiting in adult R11.2 [facility] [address] [facility] [id number] [address] [place] [id number] 13 Nov, 2016 Major depressive disorder, r ecurrent, moderate F33.1 ; Generalized anxiety disorder F41.1 and Insomnia due to other mental disorder F51.05 [place] [address] [facility] [id number] [address] [place] [id number] 12 Nov, 2016 Recurrent major depressive d isorder, in partial remission F33.41 ; Insomnia G47.00 and Morbid obesity E66.01 [facility] [address] [id number] Kiesha ESCOBEDO S [id number] October, Abscess of left arm L02.414 [place] [address] [facility] [id number] [address] [place] [id number] October, Morbid obesity E66.01 ; Lida r depression F32.9 and Recurrent major depressive disorder, in partial remission F33.[address] [place] [address] [id number], [place] [id number] Sep, Benign essential hypertension I10 ; Morb id obesity E66.01 ; S/P gastric bypass Z98.84 ; Abscess L02.91 and Chronic bacterial conjunctivitis of left eye H10.[address] [id number], [place] [id number] Sep, Dental examination Z01.20 [place] [address] [place] [address] Sep, Morbid obesity E66.01 ; Lida r depression F32.9 and Recurrent major depressive disorder, in partial remission F33.41 [place] [address] [place] [address] Jul, [place] [address] [place] [id number] [address] [place] [id number] Jul, Major depressive disorder, r ecurrent, moderate F33.1 [place] [address] [place] [id number] [address] [place] [id number] Jul, Major depressive disorder, r ecurrent, moderate F33.1 and Generalized anxiety disorder F41.[address] [place] [address] [id number], [place] [id number] Jul, Cough R05 [place] [address] [place] [id number] [place] [phone] [id number] Jul, 2016 Morbid obesity E66.01 ; Lida r depression F32.9 and Recurrent major depressive disorder, in partial remission F33.[address] [facility] [address] [id number], [place] [id number] Jul, [facility] [address] [id number], [place] [id number] Jul, [facility] [address] [id number], [place] [id number] Jul, Gastroenteritis K52.9 and Cough R05 [facility] [id number] [place] [address] [id number] Jun, Acute bacterial conjunctivitis of left e ye H10.32 [place] [address] [facility] [id number] [address] [place] [id number] Jun, [place] [address] [place] [id number] [address] [place] [id number] Jun, Recurrent major depressive d isorder, in partial remission F33.41 [place] [address] [place] [id number] [address] [place] [id number] May, Major depression F32.9 and M orbid obesity E66.01 [place] [address] [facility] [id number] [address] [place] [id number] May, [facility] [address] [facility] [id number] [place] [address] [id number] May, Thrush B37.0 [facility] [address] [place] [id number] [address] [place] [id number] Apr, Major depressive disorder, r ecurrent, moderate F33.1 [facility] [address] [facility] [id number] [address] [place] [id number] Apr, Insomnia G47.00 ; Major depr ession F32.9 and Recurrent major depressive disorder, in partial remission F33.41 [facility] [address] [facility] [id number] [address] [place] [phone] Apr, [facility] [address] [facility] [id number] [address] [place] [id number] Apr, Major depression F32.9 and R ecurrent major depressive disorder, in partial remission F33.[address] [id number] [id number] Mar, Benign essential hypertension I10 ; Morb id obesity E66.01 ; Impacted cerumen of both ears H61.23 ; Laceration of finger of right hand, initial encounter S61.219A and Encounter for immunization Z23 [facility] [address] [facility] [id number] [address] [place] [id number] Mar, [facility] [address] [facility] [id number] [address] [place] [phone] Mar, [facility] [address] [facility] [id number] [address] [place] [id number] Mar, [address] [id number] [place] [id number] Feb, Nausea R11.0 ; Blood in the stool K92.1 and Benign essential hypertension I10 [facility] [address] [facility] [id number] [address] [place] [id number] Feb, Major depression F32.9 and R ecurrent major depressive disorder, in partial remission F33.41 [place] [address] [facility] [address] [id number][place] [id number] Feb, [address] [id number] [id number] Feb, Recurrent major depressive disorder, in partial remission F33.[address] [id number] [id number] Jan, [address] [place] [address] [id number][place] [id number] Jan, Benign essential hypertension I10 ; Robert a R60.9 and Hyperlipidemia, unspecified hyperlipidemia type E78.[address] [id number] [id number] Jan, Recurrent major depressive disorder, in partial remission F33.41 [facility] [address] [id number] Kiesha ESCOBEDO S [id number] Jan, [facility] [address] [id number], [place] [id number] Jan, [facility] [address] [id number], [place] [id number] Jan, [facility] [address] [facility] [id number] [address] [place] [id number] Jan, [facility] [address] [facility] [id number] [address] [place] [phone] Dec, [facility] [address] [facility] [id number] [address] [place] [id number] Nov, [facility] [address] [facility] [id number] [address] [place] [id number] Nov, Major depression F32.9 [facility] [address] [facility] [id number] [address] [place] [id number] Nov, [facility] [address] [facility] [id number] [address] [place] [id number] Nov, [facility] [address] [facility] [id number] [address] [place] [id number] Nov, Major depressive disorder, r ecurrent episode, mild F33.0 and Anxiety F41.[address] [facility] [address] [id number], [place] [id number] Nov, [facility] [address] [id number], [place] [id number] October, Left elbow pain M25.522 and Other season al allergic rhinitis J30.2 [facility] [address] [id number], [place] [id number] October, [facility] [address] [facility] [id number] [address] [place] [address] October, Major depressive disorder, r ecurrent, moderate F33.1 [facility] [address] [facility] [id number] [address] [place] [id number] October, Major depression F32.9 [facility] [address] [facility] [id number] [address] [place] [id number] Sep, [place] or callus L84 and Onych omycosis B35.1 [facility] [address] [facility] [id number] [address] [place] [id number] Sep, Major depressive disorder, r ecurrent, moderate F33.1 [facility] [address] [facility] [id number] [address] [place] [id number] Sep, Major depression F32.9 [facility] [address] [facility] [id number] [address] [place] [id number] Sep, Moderate episode of recurren t major depressive disorder F33.1 [facility] [address] [id number], [place] [id number] Sep, Muscle strain T14.8 [facility] [address] [facility] [id number] [address] [place] [id number] Aug, Major depression F32.9 [facility] [address] [facility] [id number] [address] [place] [id number] Aug, Major depression F32.9 [facility] [address] [facility] [id number] [address] [place] [address] Jul, Morbid obesity E66.01 and Ma cora depression F32.9 [facility] [address] [facility] [id number] [address] [place] [id number] Jul, Depression, major, recurrent , moderate F33.1 [facility] [id number] [place] [id number] Jul, [facility] [address] [facility] [id number] [address] [place] [id number] Jul, [facility] [address] [facility] [id number] [address] [place] [id number] 16 Jul, 2015 Major depression F32.9 and M orbid obesity E66.01 [address] [id number][place] [id number] 11 Jul, 2015 Type II diabetes mellitus E11.9 ; Callus of foot L84 ; Benign essential hypertension I10 and Renal insufficiency N28.9 [place] [address] [place] [id number] [address] [place] [id number] 09 Jul, 2015 Depression, major, recurrent , moderate F33.1 [place] [address] [facility] [id number] [address] [place] [address] Jul, Major depression F32.9 [place] [address] [place] [id number] [address] [place] [id number] Jul, [place] [id number] [place] [address] Jun, Major depression F32.9 [place] [address] [facility] [id number] [address] [place] [id number] Jun, Major depressive disorder, r ecurrent, moderate F33.1 [place] [address] [place] [id number] [address] [place] [id number] Jun, [place] [address] [place] [id number] [address] [place] [address] Jun, Major depressive disorder, r ecurrent, moderate F33.1 and Major depression F32.[address] [id number], [place] [id number] Jun, Type II diabetes mellitus E11.9 [place] [address] [facility] [id number] [address] [place] [address] Jun, Depression, major, recurrent , moderate F33.1 [place] [address] [facility] [id number] [address] [place] [id number] May, Major depressive disorder, r ecurrent, moderate F33.1 [facility] [address] [facility] [id number] [address] [place] [id number] May, [address] [id number] [place] [address] [id number] May, Edema R60.9 [facility] [address] [facility] [id number] [address] [place] [address] May, Insomnia G47.00 and Major de pression F32.[id number] [place] [address] [id number] May, Morbid obesity E66.01 ; Edema R60.9 ; Sh ortness of breath R06.02 ; Benign essential hypertension I10 and Renal insufficiency N28.[id number] [place] [address] [id number] May, Hyperlipemia 272.4 and Renal insufficien cy N28.9 [place] [address] [facility] [id number] [address] [place] [id number] Apr, Major depression F32.9 [place] [address] [place] [id number] [address] [place] [address] Apr, [place] [address] [place] [id number] [address] [place] [id number] Apr, Major depressive disorder, r ecurrent, moderate F33.[address] [id number] [place] [address] [id number] Apr, Type II diabetes mellitus E11.9 ; Benign essential hypertension I10 ; Edema R60.9 and Renal insufficiency N28.9 [place] [address] [facility] [id number] [address] [place] [id number] Mar, Major depressive disorder, r ecurrent, moderate F33.1 [place] [address] [facility] [id number] [address] [place] [phone] Mar, [facility] [address] [facility] [id number] [address] [place] [id number] Mar, Major depression F32.[address] [place] [id number] [place] [address] [id number] Mar, Morbid obesity E66.01 ; Benign essential hypertension I10 and Type II diabetes mellitus E11.9 [place] [address] [facility] [id number] [address] [place] [id number] Feb, Major depressive disorder, r ecurrent, moderate F33.1 [place] [address] [place] [id number] [address] [place] [id number] Feb, Major depressive disorder, r ecurrent episode, in partial or unspecified remission 296.35 ; Anxiety state, unspecified 300.00 and Morbid obesity 278.01 [place] [address] [facility] [id number] [address] [place] [id number] Feb, [address] [id number] [place] [address] [id number] 16 Feb, 2015 Vomiting 787.03 and Viral syndrome 079.9 9 [place] [address] [facility] [id number] [address] [place] [id number] 15 Feb, 2015 Major depression, recurrent 296.30 ; Generalized anxiety disorder 300.02 and No condition on Marland II V71.[address] [id number] [place] [address] [id number] 03 Feb, 2015 Skin tag 701.[address] [id number] [address] [place] [id number] Feb, [place] [address] [facility] [id number] [address] [place] [id number] Jan, Depression, major, recurrent , moderate 296.[address] [id number] [place] [address] [id number] Jan, Nausea and vomiting 787.01 ; Rib pain on right side 786.50 and Fall on or from sidewalk curb E880.1 [place] [address] [facility] [id number] [address] [place] [id number] Jan, [facility] [address] [facility] [id number] [address] [place] [id number] Jan, Major depressive disorder, r ecurrent episode, in partial or unspecified remission 296.35 and Anxiety state, unspecified 300.00 [facility] [address] [place] [address] AVE [id number], [place] [id number] Jan, [facility] [address] [place] [id number] [address] [place] [address] Jan, Depression, major, recurrent , moderate 296.[address] [address] Jan, Major depression, recurrent 296.30 ; No condition on Marland II V71.09 and No condition on axis III V71.09 [facility] [address] [place], [place] [address] [id number], [place] [id number] Jan, Drug-induced nausea and vomiting 787.01 [place] [id number] [place] [address] Jan, Depression, major, recurrent , moderate 296.32 [place] [id number] [address] [place] [id number] Dec, Depression, major, recurrent , moderate 296.32 [facility] [address] [place], [place] [address] [id number], [place] [id number] Dec, Morbid obesity 278.01 ; Metabolic syndro me 277.7 ; Hyperlipemia 272.4 ; Benign essential hypertension 401.1 ; Dietary counseling V65.3 ; Exercise counseling V65.41 and Inflamed skin tag 701.9 [place] [id number] [place] [id number] Dec, Depression, major, recurrent , moderate 296.32 [place] [id number] [address] [place] [id number] Dec, [address] [place] [address] Dec, Major depression, recurrent 296.30 ; Anxiety, generalized 300.02 and No condition on Marland II V71.09 [place] [address] [place] [id number] Dec, Depression, major, recurrent , moderate 296.32 [place] [address] [place] [id number] Dec, Major depressive disorder, r ecurrent episode, moderate 296.32 [place] [address] [place] [id number] Dec, Depression, major, recurrent , moderate 296.32 [place] [address] [place] [id number] Dec, Depression, major, recurrent , moderate 296.32 [place] [address] [place] [id number] Dec, Depression, major, recurrent , moderate 296.32 [place] [address] [address] Dec, Depression, major, recurrent , moderate 296.32 [place] [address] [address] Nov, Depression, major, recurrent , moderate 296.32 [place] [address] [address] Nov, Major depression 296.20 ; So cial phobia 300.23 and No condition on Marland II V71.09 [place] [address] [place] [id number] Nov, Depression, major, recurrent , moderate 296.32 [place] [address] [place] [id number] Nov, Major depressive disorder, r ecurrent episode, moderate 296.32 and Generalized anxiety disorder 300.02 [place] [address] [place] [id number] [place] [id number] 09 Nov, 2014 Depression, major, recurrent , moderate 296.32 [facility] [address] [id number] [address] [place] [id number] 04 Nov, 2014 Depression, major, recurrent , moderate 296.32 [facility] [address] [facility] [id number] [address] [place] [id number] October, Generalized anxiety disorder 300.02 ; No condition on Marland II V71.09 and Major depressive disorder, recurrent 296.30 [facility] [address] [id number] [address] [place] [phone] Sep, [facility] [address] [id number] [address] [place] [id number] Sep, [facility] [address] [id number] [address] [place] [id number] Aug, [facility] [address] [id number] [address] [place] [id number] 24 Aug, 2014 [facility] [address] [id number] [address] [place] [id number] Aug, [facility] [address] [id number] [address] [place] [id number] Aug, [facility] [address] [id number] [address] [place] [id number] Aug, [facility] [address] [id number] [address] [place] [id number] Aug, [facility] [address] [id number] [address] [place] [id number] Aug, [facility] [address] [id number] [address] [place] [id number] Aug, [facility] [address] [id number] [address] [place] [id number] Aug, [facility] [address] [id number] [address] [place] [id number] 13 Aug, 2014 [facility] [address] [id number] [address] [place] [address], [place] [address] 13 Aug, 2014 [facility] [address] [id number] [address] [place] [address], [place] [address] 13 Aug, 2014 [facility] [address] [id number] [address] [place] [address], [place] [address] Aug, [facility] [address] [id number] [address] [place] [address], [place] [address] Aug, [facility] [address] [id number] [address] [place] [address], [place] [address] Aug, [facility] [address] [id number] [address] [place] [address], [place] [address] Aug, [facility] [address] [id number] [address] [place] [address], [place] [address] Aug, [facility] [address] [id number] [address] [place] [address], [place] [address] Aug, [facility] [address] [id number] [address] [place] [address], [place] [address] Jul, [facility] [address] [id number] [address] [place] [address], [place] [address] Jul, [facility] [address] [id number] [address] [place] [address], [place] [address] Jul, 2014 [facility] [address] [id number] [address] [place] [address], [place] [address] Jul, 2014 [facility] [address] [id number] [address] [place] [address], [place] [address] Jul, [facility] [address] [id number] [address] [place] [address], [place] [address] Jul, 2014 [facility] [address] [id number] [address] [place] [address], [place] [address] Jun, [facility] [address] [id number] [address] [place] [address], [place] [address] Jun, [facility] [address] [id number] [address] [place] [address], [place] [address] Jun, [facility] [address] [id number] [address] [place] [address], [place] [address] Jun, [facility] [address] [id number] [address] [place] [address], [place] [address] Jun, [facility] [address] [id number] [address] [place] [address], [place] [address] Jun, [facility] [address] [id number] [address] [place] [address], [place] [address] Jun, [facility] [address] [id number] [address] [place] [address], [place] [address] Jun, [facility] [address] [id number] [address] [place] [address], [place] [address] Jun, [facility] [address] [id number] [address] [place] [address], [place] [address] Jun, [facility] [address] [id number] [address] [place] [address], [place] [address] Jun, [facility] [address] [id number] [address] [place] [address], [place] [address] Jun, [facility] [id number] [place] [address] [id number] Jun, [facility] [address] [id number] [address] [place] [address], [place] [address] Jun, [facility] [address] [id number] [address] [place] [address], [place] [address] Jun, [facility] [address] [id number] [address] [place] [address], [place] [address] Jun, [facility] [address] [id number] [address] [place] [id number] May, [facility] [address] [id number] [address] [place] [address], [place] [address] May, [facility] [address] [id number] [address] [place] [address], [place] [address] May, [facility] [address] [id number] [address] [place] [address], [place] [address] May, [facility] [address] [id number] [address] [place] [address], [place] [address] Apr, [facility] [address] [id number] [address] [place] [address], [place] [address] Apr, [facility] [address] [id number] [address] [place] [address], [place] [address] Apr, [facility] [address] [id number] [address] [place] [address], [place] [address] Apr, [facility] [address] [id number] [address] [place] [address] Apr, [facility] [address] [id number] [address] [place] [address], [place] [address] Apr, [facility] [address] [id number] [address] [place] [address], [place] [address] Apr, [facility] [address] [id number] [address] [place] [address] Apr, [facility] [address] [id number] [address] [place] [address] Apr, [facility] [address] [id number] [address] [place] [address], [place] [address] Apr, [facility] [address] [id number] [address] [place] [address] Apr, [facility] [address] [id number] [address] [place] [id number] Apr, [facility] [address] [id number] [address] [place] [address], [place] [address] Apr, [facility] [address] [id number] [address] [place] [address], [place] [address] Apr, [facility] [address] [id number] [address] [place] [address], [place] [address] Apr, [facility] [address] [id number] [address] [place] [address], [place] [address] Apr, [facility] [address] [id number] [address] [place] [address], [place] [address] Apr, [facility] [address] [id number] [address] [place] [address], [place] [address] Apr, [facility] [address] [id number] [address] [place] [address], [place] [address] Apr, [facility] [address] [id number] [address] [place] [address], [place] [address] Apr, [facility] [address] [id number] [address] [place] [address], [place] [address] Mar, [facility] [address] [id number] [address] [place] [address], [place] [address] Mar, [facility] [address] [id number] [address] [place] [address], [place] [address] Mar, [facility] [address] [id number] [address] [place] [address], [place] [address] Mar, [facility] [address] [id number] [address] [place] [address], [place] [address] Mar, [facility] [address] [id number] [address] [place] [address], [place] [address] Mar, [facility] [address] [id number] [address] [place] [address], [place] [address] Mar, [facility] [address] [id number] [address] [place] [address], [place] [address] Mar, [facility] [address] [id number] [address] [place] [address], [place] [address] Mar, [facility] [address] [id number] [address] [place] [address], [place] [address] Mar, [facility] [address] [id number] [address] [place] [address], [place] [address] Feb, [facility] [address] [id number] [address] [place] [address], [place] [address] Feb, [facility] [address] [id number] [address] [place] [address], [place] [address] Feb, [facility] [address] [id number] [address] [place] [address], [place] [address] Feb, [facility] [address] [id number] [address] [place] [address], [place] [address] Jan, [facility] [address] [id number] [address] [place] [address], [place] [address] Jan, [facility] [address] [id number] [address] [place] [address], [place] [address] Jan, [facility] [address] [id number] [address] [place] [address], [place] [address] Jan, [facility] [address] [id number] [address] [place] [address], [place] [address] Jan, [facility] [address] [id number] [address] [place] [address], [place] [address] Jan, [facility] [address] [id number] [address] [place] [address], [place] [address] Dec, [facility] [address] [id number] [address] [place] [address], [place] [address] Dec, [facility] [address] [id number] [address] [place] [address], [place] [address] Nov, [facility] [address] [id number] [address] [place] [address], [place] [address] Nov, [facility] [address] [id number] [facility] [place] [address] Nov, [facility] [address] [id number] [address] [place] [address], [place] [address] Nov, [facility] [address] [id number] [address] [place] [address], [place] [address] Nov, [facility] [address] [id number] [address] [place] [address], [place] [address] Nov, [facility] [address] [id number] [address] [place] [address], [place] [address] Sep, [facility] [address] [id number] [address] [place] [address], [place] [address] Sep, [facility] [address] [id number] [address] [place] [address], [place] [address] Sep, [facility] [address] [id number] [address] [place] [address], [place] [address] Sep, [facility] [address] [id number] [address] [place] [address], [place] [address] Aug, [facility] [address] [id number] [address] [place] [address], [place] [address] Aug, [facility] [address] [id number] [address] [place] [address], [place] [address] Jul, [facility] [address] [id number] [address] [place] [address], [place] [address] Jul, [facility] [address] [id number] [address] [place] [address], [place] [address] Jun, [facility] [address] [id number] [address] [place] [address], [place] [address] Jun, [facility] [address] [id number] [address] [place] [address], [place] [address] Jun, [facility] [address] [id number] [address] [place] [address], [place] [id number] 16 Jun, 2013 [facility] [address] [id number] [address] [place] [address], [place] [address] May, [facility] [address] [id number] [address] [place] [address], [place] [address] May, [facility] [address] [id number] [address] [place] [address], [place] [address] May, [facility] [address] [id number] [address] [place] [address], [place] [address] May, [facility] [address] [id number] [address] [place] [address], [place] [address] May, [facility] [address] [id number] [address] [place] [address], [place] [address] May, [facility] [address] [id number] [address] [place] [address], [place] [address] Apr, [facility] [address] [id number] [address] [place] [address], [place] [address] Apr, [facility] [address] [id number] [address] [place] [address], [place] [address] Apr, [facility] [address] [id number] [address] [place] [address], [place] [address] Apr, [facility] [address] [id number] [address] [place] [address], [place] [address] Mar, [facility] [address] [id number] [address] [place] [address], [place] [address] Mar, [facility] [address] [id number] [address] [place] [address], [place] [address] Mar, [facility] [address] [id number] [address] [place] [address], [place] [address] Mar, [facility] [address] [id number] [address] [place] [address], [place] [address] Feb, [facility] [address] [id number] [id number] Jan, [facility] [address] [id number] [address] [place] [id number] Jan, [facility] [address] [id number] [address] [place] [phone] Dec, [facility] [address] [id number] [address] [place] [id number] Dec, [facility] [address] [id number] [address] [place] [phone] Dec, [facility] [address] [id number] [place] [id number] Dec, [facility] [address] [id number] [address] [place] [phone] Nov, [facility] [address] [id number] [address] [place] [phone] Nov, [facility] [address] [id number] [address] [place] [phone] Nov, [facility] [address] [id number] [address] [place] [phone] Nov, [facility] [address] [id number] [address] [place] [phone] Nov, [facility] [address] [id number] [address] [place] [id number] October, [facility] [address] [id number] [address] [place] [id number] October, [facility] [address] [id number] [address] [place] [id number] Aug, [facility] [address] [id number] [address] [place] [id number] 13 Nov, 2011 IMMUNIZATIONS No Known Immunizations [...] 03/2016 Hospitalization History gastric sleeve Hospitalization History [facility] Trouble with left shoulder blade 08/2017
--- OUTSIDE RECORDS SUMMARY | 2019-11-29 09:17 | XMS REPORT ---
Author Author Curt DIAZ [facility] Address [address] [place] [address] Care Team Providers Care Dye Reel Operator Name Role Phone JOE CHRIS Unavailable PROBLEMS Type Condition ICD9-CM Code TVT84-OR Code Onset Dates Condition S tatus SNOMED Code Problem Insomnia G47.00 Active 079326946 Problem Benign essential hypertension I10 Active 8907006 Problem Hyperlipemia E78.5 Active 4277242 4 Problem Edema R60.9 Active 626955195 Problem Morbid obesity E66.01 Active 55077 6002 Problem Severe episode of recurrent major depressive disorder, without psychotic features F33.2 Active 50398598 Problem Vitamin D deficiency E55.9 Active 85137904 Problem Mixed obsessional thoughts and acts F42.2 Active 03079619 Problem Chronic fatigue R53.82 Active 8422 9001 Problem Metabolic syndrome E88.81 Active 2 69465925 Problem Other chronic pain G89.29 Active 8 0590829 Problem Renal insufficiency N28.9 Active 716698131 Problem BMI 45.0-49.9, adult Z68.42 Active 275715628 Problem DANIELA (generalized anxiety disorder) F41.1 Active 63581098 Problem Sciatica, right side M54.31 Active [id number] Problem 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 Active 57065260 ALLERGIES No Information ENCOUNTERS Encounter Location Date Diagnosis [facility] [address] [facility] [id number] [address] [place] [phone] Jan, [facility] [address] [facility] [id number] [place] [address] [id number] Jan, [facility] [address] [facility] [id number] [address] [place] [phone] Dec, Severe episode of recurrent major depressive disorder, without psychotic features F33.2 [facility] [address] [facility] [id number] [address] [place] [phone] Dec, DANIELA (generalized anxiety dis order) F41.1 ; Severe episode of recurrent major depressive disorder, without psychotic features F33.2 ; Mixed obsessional thoughts and acts F42.2 and 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 [address] [id number], [place] [id number] Dec, Morbid obesity E66.01 [facility] [address] [facility] [id number] [address] [place] [phone] Dec, [facility] [address] [facility] [id number] [address] [place] [phone] Dec, [address] [phone] Nov, [facility] [place] [address] [facility] [id number], [place] [id number] Nov, [facility] [address] [facility] [id number] [address] [place] [phone] Nov, [facility] [address] [facility] [id number] [address] [place] [phone] Nov, [facility] [address] [facility] [id number] [address] [place] [phone] Nov, DANIELA (generalized anxiety dis order) F41.1 ; Severe episode of recurrent major depressive disorder, without psychotic features F33.2 ; Mixed obsessional thoughts and acts F42.2 and 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 [address] [id number], [place] [id number] October, Morbid obesity E66.[address] [facility] [address] [id number], [place] [id number] October, Benign essential hypertension I10 and Mo rbid obesity E66.01 [facility] [address] [place] [address] [id number] [place] [address] [id number] October, [facility] [address] [place] [id number] [address] [place] [phone] October, Severe episode of recurrent major depressive disorder, without psychotic features F33.2 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 [facility] Yulia[address] [place] [id number] [place] [address] [id number] October, Morbid obesity E66.01 [facility] [address] [facility] [id number] [address] [place] [address] [id number] Sep, Dental examination Z01.20 [facility] [place] [id number] [place] [address] [id number] Sep, [facility] [address] [place] [id number] [address] [place] [phone] Sep, Sore in mouth K13.79 and Mor bid obesity E66.01 [facility] [address] [place] [id number] [address] [place] [phone] Sep, Dental examination Z01.20 [facility] [address] [facility] [id number] [address] [place] [address] Sep, Anxiety disorder, unspecifie d F41.9 [facility] [place] [facility] [address] [id number], [place] [id number] Sep, Mouth ulcer K12.[address] [id number], [place] [id number] Sep, Morbid obesity E66.01 [facility] [address] [id number], [place] [id number] Sep, Allergic rhinitis, unspecified seasonali ty, unspecified trigger J30.9 and Shortness of breath R06.02 [facility] [place] [id number], [place] [id number] Sep, 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 [facility] [place] [address] [id number], [place] [id number] Aug, Mouth abscess K12.2 ; Mouth ulcer K12.1 ; Bloating R14.0 and Morbid obesity E66.01 [facility] [place] [address] [id number], [place] [id number] Aug, [facility] [address] [id number], [place] [id number] Aug, [facility] [place] [address] [id number], [place] [id number] Jul, Major depressive disorder, recurrent, mo derate F33.1 ; Abscess of arm, left L02.414 ; BMI 45.0-49.9, adult Z68.42 and Morbid obesity E66.01 [facility] [place] [address] [id number], [place] [id number] Jul, [facility] [address] [id number], [place] [id number] Jul, [facility] [place] [address] [id number], [place] [id number] Jun, Pain in right knee M25.561 and Other chr onic pain G89.29 [facility] [place] [address] [id number], [place] [id number] Jun, Benign essential hypertension I10 ; BMI 45.0-49.9, adult Z68.42 ; Morbid obesity E66.01 ; Vitamin D deficiency E55.9 ; Insomnia G47.00 ; 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 [address] [id number], [place] [id number] Jun, Irritable mood R45.4 [facility] [address] [facility] [id number] [address] [place] [phone] May, [facility] [address] [facility] [id number] [address] [place] [phone] May, [facility] [address] [facility] [id number] [address] [place] [phone] May, Recurrent major depressive d isorder, in partial remission F33.41 ; Mixed obsessional thoughts and acts F42.2 ; 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 and BMI 45.0-49.9, adult Z68.42 [facility] [address] [facility] [id number] [address] [place] [phone] Apr, [facility] [address] [facility] [id number] [address] [place] [phone] Apr, [facility] [address] [facility] [id number] [address] [place] [phone] Apr, [facility] [address] [facility] [id number] [address] [place] [phone] Apr, [place] [id number] [address] [facility] [id number] [address] [place] [phone] Mar, Mixed obsessional thoughts a nd acts F42.2 ; Recurrent major depressive disorder, in partial remission F33.41 ; DANIELA (generalized anxiety disorder) F41.1 and BMI 45.0-49.9, adult Z68.42 [facility] [place] [address] [id number], [place] [id number] Mar, [facility] [place] [address] [id number], [place] [id number] Mar, BMI 45.0-49.9, adult Z68.42 ; Instabilit y of right knee joint M25.361 and Rash R21 [place] [address] [facility] [id number] [address] [place] [phone] Jan, Recurrent major depressive d isorder, in partial remission F33.41 ; Mixed obsessional thoughts and acts F42.2 and BMI 45.0-49.9, adult Z68.42 [facility] [place] [address] [id number], [place] [id number] Jan, [facility] [place] [address] [id number], [place] [id number] Jan, Benign essential hypertension I10 ; BMI 45.0-49.9, adult Z68.42 ; Metabolic syndrome E88.81 and Allergic rhinitis, unspecified seasonality, unspecified trigger J30.9 [place] [address] [facility] [id number] [address] [place] [phone] Dec, DANIELA (generalized anxiety dis order) F41.1 and Depressive disorder, not elsewhere classified F32.9 [facility] [place] [address] [id number], [place] [id number] Dec, Recurrent major depressive disorder, in partial remission F33.41 [facility] [place] [address] [id number], [place] [id number] Dec, [facility] [place] [address] [id number], [place] [id number] Nov, [facility] [place] [address] [id number], [place] [id number] Nov, Recurrent major depressive disorder, in partial remission F33.41 [facility] [address] [facility] [id number] [address] [place] [phone] Nov, Recurrent major depressive d isorder, in partial remission F33.41 ; Mixed obsessional thoughts and acts F42.2 ; DANIELA (generalized anxiety disorder) F41.1 and BMI 45.0-49.9, adult Z68.42 [facility] [place] [address] [id number], [place] [id number] Nov, [facility] [place] [address] [id number], [place] [id number] Nov, Other conjunctivitis of both eyes H10.89 and Sciatica, right side M54.31 [facility] [place] [address] [id number], [place] [id number] Nov, [facility] [place] [address] [id number], [place] [id number] Nov, [facility] [place] [address] [id number], [place] [id number] October, [facility] [place] [address] [id number], [place] [id number] October, [facility] [address] [facility] [id number] [address] [place] [phone] October, BMI 45.0-49.9, adult Z68.42 ; Mixed obsessional thoughts and acts F42.2 ; Recurrent major depressive disorder, in partial remission F33.41 and DANIELA (generalized anxiety disorder) F41.[address] [facility] [place] [address] [id number], [place] [id number] October, Benign essential hypertension I10 ; Morb id obesity E66.01 and BMI 45.0-49.9, adult Z68.[address] [facility] [place] [address] [id number], [place] [id number] Sep, [facility] [address] [id number], [place] [id number] Sep, [facility] [place] [id number], [place] [id number] Sep, [address] [id number], [place] [id number] Sep, Hospital discharge follow-up Z09 ; Aller gic rhinitis, unspecified seasonality, unspecified trigger J30.9 and Shortness of breath R06.[address] [id number], [place] [id number] Sep, Recurrent major depressive disorder, in partial remission F33.[address] [id number], [place] [id number] Aug, Irritable mood R45.4 [place] [address] [place] [phone] Aug, [address] [id number], [place] [id number] Jul, Benign essential hypertension I10 ; Robert a R60.9 and Impacted cerumen of left ear H61.22 [place] [address] [place] [phone] Jul, Major depression F32.9 ; Rec urrent major depressive disorder, in partial remission F33.41 and Anxiety F41.9 [place] [address] [place] [id number] [address] [place] [phone] Jun, Major depression F32.9 ; Rec urrent major depressive disorder, in partial remission F33.41 and Anxiety F41.[address] [id number], [place] [id number] Jun, Major depression F32.9 ; Morbid obesity E66.01 ; Irritable mood R45.4 ; Hand weakness R29.898 and Vitamin D deficiency E55.9 [facility] [address] [id number], [place] [id number] Jun, [facility] [place] [address] [id number], [place] [id number] May, Major depression F32.9 [facility] [address] [facility] [id number] [address] [place] [phone] May, Major depression F32.9 [facility] [address] [id number], [place] [id number] May, BMI 50.0-59.9, adult Z68.43 ; Major depr ession F32.9 ; Anxiety F41.9 ; Hypertrophic toenail L60.2 and Pain of left great toe M79.675 [facility] [address] [id number], [place] [id number] May, Recurrent major depressive disorder, in partial remission F33.41 [facility] [address] [place] [id number] [address] [place] [phone] Apr, [facility] [address] [id number], [place] [id number] Apr, [facility] [address] [facility] [id number] [address] [place] [phone] Apr, Major depression F32.9 [facility] [address] [id number], [place] [id number] Apr, Severe episode of recurrent major depres sive disorder, without psychotic features F33.2 ; Anxiety F41.9 and Insomnia G47.00 [facility] [address] [id number], [place] [id number] Apr, [facility] [address] [facility] [id number] [address] [place] [phone] Apr, [facility] [address] [id number], [place] [id number] Apr, [facility] [address] [id number], [place] [id number] Mar, [facility] [address] [id number], [place] [id number] Mar, Allergic conjunctivitis of both eyes H10 .13 [facility] [address] [facility] [id number] [address] [place] [phone] Mar, Major depression F32.9 [facility] [address] [id number], [place] [id number] Mar, Metabolic syndrome E88.81 ; History of g astric bypass Z98.890 ; Benign essential hypertension I10 ; Allergic conjunctivitis of both eyes H10.13 and Morbid obesity E66.01 [facility] [address] [facility] [id number] [address] [place] [phone] Mar, Major depression F32.9 [facility] [address] [facility] [address] [id number], [place] [id number] Feb, [facility] [address] [facility] [id number] [address] [place] [phone] Feb, Major depression F32.9 [facility] [address] [facility] [address] [id number], [place] [id number] Feb, Subacute maxillary sinusitis J01.00 and Bronchitis J40 [place] [address] [facility] [address] [facility] [id number] [address] [place] [phone] Feb, Major depressive disorder, r ecurrent, moderate F33.1 [facility] [address] [id number], [place] [id number] Jan, [facility] [place] [address] [id number], [place] [id number] Jan, Acute non-recurrent maxillary sinusitis J01.00 and Skin tag L91.8 [facility] [address] [id number], [place] [id number] Jan, Cough R05 and Sinus congestion R09.81 [facility] [address] [id number], [place] [id number] Jan, [facility] [place] [address] [id number], [place] [id number] Jan, Benign essential hypertension I10 ; Hist ory of gastric bypass Z98.890 and Nausea and vomiting in adult R11.2 [facility] [address] [facility] [id number] [address] [place] [phone] 04 Jan, 2017 Major depressive disorder, r ecurrent, moderate F33.1 [place] [address] [facility] [id number] [address] [place] [phone] Dec, Insomnia G47.00 ; Recurrent major depressive disorder, in partial remission F33.41 and Morbid obesity E66.01 [facility] [address] [facility] [address] [id number], [place] [id number] Dec, [facility] [place] [address] [place] [address] [id number] [place] [address] [id number] Dec, Chronic bacterial conjunctivitis of left eye H10.402 [facility] [place] [address] [place] [address] [address] [id number], [place] [id number] Nov, [facility] [place] [address] [place] [address] [address] [id number], [place] [id number] Nov, Dental examination Z01.20 [facility] [address] [id number], [place] [id number] Nov, Benign essential hypertension I10 ; Hist ory of gastric bypass Z98.890 and Nausea and vomiting in adult R11.2 [facility] [address] [facility] [id number] [address] [place] [phone] 13 Nov, 2016 Major depressive disorder, r ecurrent, moderate F33.1 ; Generalized anxiety disorder F41.1 and Insomnia due to other mental disorder F51.05 [place] [address] [facility] [address] [facility] [id number] [address] [place] [id number] 12 Nov, 2016 Recurrent major depressive d isorder, in partial remission F33.41 ; Insomnia G47.00 and Morbid obesity E66.01 [facility] [address] [id number] Kiesha ESCOBEDO S [id number] October, Abscess of left arm L02.414 [place] [address] [facility] [id number] [address] [place] [phone] October, Morbid obesity E66.01 ; Lida r depression F32.9 and Recurrent major depressive disorder, in partial remission F33.[address] [place] [address] [id number], [place] [id number] Sep, Benign essential hypertension I10 ; Morb id obesity E66.01 ; S/P gastric bypass Z98.84 ; Abscess L02.91 and Chronic bacterial conjunctivitis of left eye H10.[address] [id number], [place] [id number] Sep, Dental examination Z01.20 [place] [address] [place] [phone] Sep, Morbid obesity E66.01 ; Lida r depression F32.9 and Recurrent major depressive disorder, in partial remission F33.41 [place] [address] [place] [phone] Jul, [place] [address] [place] [id number] [place] [phone] Jul, Major depressive disorder, r ecurrent, moderate F33.1 [place] [address] [place] [id number] [place] [phone] Jul, Major depressive disorder, r ecurrent, moderate F33.1 and Generalized anxiety disorder F41.[address] [place] [address] [id number], [place] [id number] Jul, Cough R05 [place] [address] [place] [id number] [place] [phone] 16 Jul, 2016 Morbid obesity E66.01 ; Lida r depression F32.9 and Recurrent major depressive disorder, in partial remission F33.[address] [facility] [place] [address] [id number], [place] [id number] Jul, [facility] [place] [address] [id number], [place] [id number] Jul, [facility] [place] [id number], [place] [id number] Jul, Gastroenteritis K52.9 and Cough R05 [facility] [place] [id number] [place] [address] [id number] Jun, Acute bacterial conjunctivitis of left e ye H10.32 [place] [address] [facility] [address] [facility] [id number] [address] [place] [phone] Jun, [place] [address] [place] [id number] [address] [place] [phone] Jun, Recurrent major depressive d isorder, in partial remission F33.41 [place] [address] [place] [id number] [place] [phone] May, Major depression F32.9 and M orbid obesity E66.01 [place] [address] [facility]ED [facility] [id number] [address] [place] [phone] May, [facility] [id number] [place] [id number] May, Thrush B37.0 [facility] [address] [place] [id number] [address] [place] [phone] Apr, Major depressive disorder, r ecurrent, moderate F33.1 [facility] [address] [facility] [facility] [id number] [address] [place] [phone] Apr, Insomnia G47.00 ; Major depr ession F32.9 and Recurrent major depressive disorder, in partial remission F33.41 [facility] [address] [facility] [id number] [address] [place] [phone] Apr, [facility] [address] [facility] [id number] [address] [place] [phone] Apr, Major depression F32.9 and R ecurrent major depressive disorder, in partial remission F33.[address] [place] [place] [id number] [id number] [id number] Mar, Benign essential hypertension I10 ; Morb id obesity E66.01 ; Impacted cerumen of both ears H61.23 ; Laceration of finger of right hand, initial encounter S61.219A and Encounter for immunization Z23 [facility] [address] [facility] [id number] [place] [phone] Mar, [facility] [address] [facility] [id number] [address] [place] [phone] Mar, [facility] [address] [facility] [id number] [address] [place] [phone] Mar, [id number] [place] [address] [id number] Feb, Nausea R11.0 ; Blood in the stool K92.1 and Benign essential hypertension I10 [facility] [address] [facility] [id number] [address] [place] [phone] Feb, Major depression F32.9 and R ecurrent major depressive disorder, in partial remission F33.[address] [place] [address] [facility] [address] [id number], [place] [id number] Feb, [place] [address] [id number][place] [id number] Feb, Recurrent major depressive disorder, in partial remission F33.[address] [place] [id number][place] [id number] Jan, [place] [address] [id number][place] [id number] Jan, Benign essential hypertension I10 ; Robert a R60.9 and Hyperlipidemia, unspecified hyperlipidemia type E78.[address] [place] [id number][place] [id number] Jan, Recurrent major depressive disorder, in partial remission F33.41 [facility] [address] [id number] Kiesha ESCOBEDO S [id number] Jan, [facility] [address] [id number], [place] [id number] Jan, [facility] [address] [id number], [place] [id number] Jan, [facility] [address] [facility] [id number] [address] [place] [id number] Jan, [facility] [address] [facility] [id number] [address] [place] [id number] Dec, [facility] [address] [facility] [id number] [address] [place] [phone] Nov, [facility] [address] [facility] [id number] [address] [place] [phone] Nov, Major depression F32.9 [facility] [address] [facility] [id number] [address] [place] [phone] Nov, [facility] [address] [facility] [id number] [address] [place] [phone] Nov, [facility] [address] [facility] [id number] [address] [place] [phone] Nov, Major depressive disorder, r ecurrent episode, mild F33.0 and Anxiety F41.9 [facility] [address] [id number], [place] [id number] Nov, [facility] [address] [id number], [place] [id number] October, Left elbow pain M25.522 and Other season al allergic rhinitis J30.2 [facility] [address] [id number], [place] [id number] October, [facility] [address] [facility] [id number] [address] [place] [phone] October, Major depressive disorder, r ecurrent, moderate F33.1 [facility] [address] [facility] [id number] [address] [place] [phone] October, Major depression F32.9 [facility] [address] [facility] [id number] [address] [place] [phone] Sep, [place] or callus L84 and Onych omycosis B35.1 [facility] [address] [facility] [id number] [address] [place] [phone] Sep, Major depressive disorder, r ecurrent, moderate F33.1 [facility] [address] [facility] [id number] [address] [place] [phone] Sep, Major depression F32.9 [facility] [address] [facility] [id number] [address] [place] [phone] Sep, Moderate episode of recurren t major depressive disorder F33.1 [facility] [address] [id number], [place] [id number] Sep, Muscle strain T14.8 [facility] [address] [facility] [id number] [address] [place] [phone] Aug, Major depression F32.9 [facility] [address] [facility] [id number] [address] [place] [phone] Aug, Major depression F32.9 [facility] [address] [facility] [id number] [address] [place] [phone] Jul, Morbid obesity E66.01 and Ma cora depression F32.9 [facility] [address] [facility] [id number] [address] [place] [phone] Jul, Depression, major, recurrent , moderate F33.1 [facility] [id number] [place] [address] [id number] Jul, [facility] [address] [facility] [id number] [address] [place] [phone] Jul, [facility] [address] [facility] [id number] [address] [place] [phone] 16 Jul, 2015 Major depression F32.9 and M orbid obesity E66.01 [address] [id number], [place] [id number] 11 Jul, 2015 Type II diabetes mellitus E11.9 ; Callus of foot L84 ; Benign essential hypertension I10 and Renal insufficiency N28.9 [place] [address] [place] [id number] [address] [place] [id number] 09 Jul, 2015 Depression, major, recurrent , moderate F33.1 [place] [address] [facility] [address] [facility] [id number] [address] [place] [phone] Jul, Major depression F32.9 [place] [address] [place] [id number] [address] [place] [phone] Jul, [place] [id number] [place] [phone] Jun, Major depression F32.9 [place] [address] [facility] [address] [facility] [id number] [address] [place] [phone] Jun, Major depressive disorder, r ecurrent, moderate F33.1 [place] [address] [place] [id number] [address] [place] [phone] Jun, [place] [address] [place] [id number] [address] [place] [phone] Jun, Major depressive disorder, r ecurrent, moderate F33.1 and Major depression F32.[address] [id number], [place] [id number] Jun, Type II diabetes mellitus E11.9 [place] [address] [facility] [id number] [address] [place] [phone] Jun, Depression, major, recurrent , moderate F33.1 [place] [address] [facility] [id number] [address] [place] [phone] May, Major depressive disorder, r ecurrent, moderate F33.1 [facility] [address] [facility] [id number] [address] [place] [id number] May, [id number] [place] [address] [id number] May, Edema R60.9 [facility] [address] [facility] [id number] [address] [place] [id number] May, Insomnia G47.00 and Major de pression F32.[id number] [place] [address] [id number] May, Morbid obesity E66.01 ; Edema R60.9 ; Sh ortness of breath R06.02 ; Benign essential hypertension I10 and Renal insufficiency N28.[id number] [place] [address] [id number] May, Hyperlipemia 272.4 and Renal insufficien cy N28.9 [place] [address] [facility] [id number] [address] [place] [phone] Apr, Major depression F32.9 [place] [address] [place] [id number] [address] [place] [phone] Apr, [place] [address] [place] [id number] [address] [place] [phone] Apr, Major depressive disorder, r ecurrent, moderate F33.[id number] [place] [address] [id number] Apr, Type II diabetes mellitus E11.9 ; Benign essential hypertension I10 ; Edema R60.9 and Renal insufficiency N28.9 [place] [address] [facility] [address] [facility] [id number] [address] [place] [phone] Mar, Major depressive disorder, r ecurrent, moderate F33.1 [place] [address] [facility] [address] [facility] [id number] [address] [place] [phone] Mar, [facility] [address] [facility] [id number] [address] [place] [phone] Mar, Major depression F32.[address] [place] [id number] [place] [address] [id number] Mar, Morbid obesity E66.01 ; Benign essential hypertension I10 and Type II diabetes mellitus E11.9 [place] [address] [facility] [address] [facility] [id number] [address] [place] [phone] Feb, Major depressive disorder, r ecurrent, moderate F33.1 [place] [address] [place] [id number] [address] [place] [phone] Feb, Major depressive disorder, r ecurrent episode, in partial or unspecified remission 296.35 ; Anxiety state, unspecified 300.00 and Morbid obesity 278.01 [place] [address] [facility] [id number] [address] [place] [phone] Feb, [id number] [place] [address] [id number] 16 Feb, 2015 Vomiting 787.03 and Viral syndrome 079.9 9 [place] [address] [facility] [address] [facility] [id number] [address] [place] [phone] 15 Feb, 2015 Major depression, recurrent 296.30 ; Generalized anxiety disorder 300.02 and No condition on [place] II V71.[id number] [place] [address] [id number] 03 Feb, 2015 Skin tag 701.[address] [id number] [address] [place] [phone] Feb, [place] [address] [address] [facility] [id number] [address] [place] [phone] Jan, Depression, major, recurrent , moderate 296.[id number] [place] [address] [id number] Jan, Nausea and vomiting 787.01 ; Rib pain on right side 786.50 and Fall on or from sidewalk curb E880.1 [place] [address] [facility] [address] [facility] [id number] [address] [place] [phone] Jan, [facility] [address] [facility] [id number] [address] [place] [id number] Jan, Major depressive disorder, r ecurrent episode, in partial or unspecified remission 296.35 and Anxiety state, unspecified 300.00 [facility] [address] [place] [address] AVE [id number], [place] [id number] Jan, [facility] [address] [place] [id number] [address] [place] [address] Jan, Depression, major, recurrent , moderate 296.[address] [address] Jan, Major depression, recurrent 296.30 ; No condition on [place] II V71.09 and No condition on axis III V71.09 [facility] [address] [place], [place] [address] [id number], [place] [id number] Jan, Drug-induced nausea and vomiting 787.01 [place] [id number] [place] [phone] Jan, Depression, major, recurrent , moderate 296.32 [place] [id number] [address] [place] [address] Dec, Depression, major, recurrent , moderate 296.32 [facility] [address] [place], [place] [address] [id number], [place] [id number] Dec, Morbid obesity 278.01 ; Metabolic syndro me 277.7 ; Hyperlipemia 272.4 ; Benign essential hypertension 401.1 ; Dietary counseling V65.3 ; Exercise counseling V65.41 and Inflamed skin tag 701.9 [place] [id number] [address] [place] [id number] Dec, Depression, major, recurrent , moderate 296.32 [place] [id number] [address] [place] [phone] Dec, [address] [place] [address] Dec, Major depression, recurrent 296.30 ; Anxiety, generalized 300.02 and No condition on [place] II V71.09 [place] [address] [place] [id number] Dec, Depression, major, recurrent , moderate 296.32 [place] [address] [place] [id number] Dec, Major depressive disorder, r ecurrent episode, moderate 296.32 [place] [address] [place] [id number] Dec, Depression, major, recurrent , moderate 296.32 [place] [address] [place] [id number] Dec, Depression, major, recurrent , moderate 296.32 [place] [address] [place] [id number] Dec, Depression, major, recurrent , moderate 296.32 [place] [address] [address] Dec, Depression, major, recurrent , moderate 296.32 [place] [address] [address] Nov, Depression, major, recurrent , moderate 296.32 [place] [address] [address] Nov, Major depression 296.20 ; So cial phobia 300.23 and No condition on [place] II V71.09 [place] [address] [place] [id number] Nov, Depression, major, recurrent , moderate 296.32 [place] [address] [place] [id number] Nov, Major depressive disorder, r ecurrent episode, moderate 296.32 and Generalized anxiety disorder 300.02 [place] [address] [place] [id number] [place] [id number] 09 Nov, 2014 Depression, major, recurrent , moderate 296.32 [facility] [address] [id number] [address] [place] [phone] 04 Nov, 2014 Depression, major, recurrent , moderate 296.32 [facility] [address] [facility] [id number] [address] [place] [phone] October, Generalized anxiety disorder 300.02 ; No condition on [place] II V71.09 and Major depressive disorder, recurrent 296.30 [facility] [address] [id number] [address] [place] [id number] Sep, [facility] [address] [id number] [address] [place] [id number] Sep, [facility] [address] [id number] [address] [place] [phone] Aug, [facility] [address] [id number] [address] [place] [id number] 24 Aug, 2014 [facility] [address] [id number] [address] [place] [id number] Aug, [facility] [address] [id number] [address] [place] [phone] Aug, [facility] [address] [id number] [address] [place] [id number] Aug, [facility] [address] [id number] [address] [place] [id number] Aug, [facility] [address] [id number] [address] [place] [id number] Aug, [facility] [address] [id number] [address] [place] [id number] Aug, [facility] [address] [id number] [address] [place] [id number] Aug, [facility] [address] [id number] [address] [place] [id number] 13 Aug, 2014 [facility] [address] [id number] [address] [place] [address], [place] [address] 13 Aug, 2014 [facility] [address] [id number] [address] [place] [address], [place] [address] 13 Aug, 2014 [facility] [address] [id number] [address] [place] [address], [place] [address] Aug, [facility] [address] [id number] [address] [place] [address], [place] [address] Aug, [facility] [address] [id number] [address] [place] [address], [place] [address] Aug, [facility] [address] [id number] [address] [place] [address], [place] [address] Aug, [facility] [address] [id number] [address] [place] [address], [place] [address] Aug, [facility] [address] [id number] [address] [place] [address], [place] [address] Aug, [facility] [address] [id number] [address] [place] [address], [place] [address] Jul, [facility] [address] [id number] [address] [place] [address], [place] [address] Jul, [facility] [address] [id number] [address] [place] [address], [place] [address] Jul, 2014 [facility] [address] [id number] [address] [place] [address], [place] [address] Jul, 2014 [facility] [address] [id number] [address] [place] [address], [place] [address] Jul, [facility] [address] [id number] [address] [place] [address], [place] [address] Jul, 2014 [facility] [address] [id number] [address] [place] [address], [place] [address] Jun, [facility] [address] [id number] [address] [place] [address], [place] [address] Jun, [facility] [address] [id number] [address] [place] [address], [place] [address] Jun, [facility] [address] [id number] [address] [place] [address], [place] [address] Jun, [facility] [address] [id number] [address] [place] [address], [place] [address] Jun, [facility] [address] [id number] [address] [place] [address], [place] [address] Jun, [facility] [address] [id number] [address] [place] [address], [place] [address] Jun, [facility] [address] [id number] [address] [place] [address], [place] [address] Jun, [facility] [address] [id number] [address] [place] [address], [place] [address] Jun, [facility] [address] [id number] [address] [place] [address], [place] [address] Jun, [facility] [address] [id number] [address] [place] [address], [place] [address] Jun, [facility] [address] [id number] [address] [place] [address], [place] [address] Jun, [facility] [address] [id number] [place] [address] [id number] Jun, [facility] [address] [id number] [address] [place] [address], [place] [address] Jun, [facility] [address] [id number] [address] [place] [address], [place] [address] Jun, [facility] [address] [id number] [address] [place] [address], [place] [address] Jun, [facility] [address] [id number] [address] [place] [id number] May, [facility] [address] [id number] [address] [place] [address], [place] [address] May, [facility] [address] [id number] [address] [place] [address], [place] [address] May, [facility] [address] [id number] [address] [place] [address], [place] [address] May, [facility] [address] [id number] [address] [place] [address], [place] [address] Apr, [facility] [address] [id number] [address] [place] [address], [place] [address] Apr, [facility] [address] [id number] [address] [place] [address], [place] [address] Apr, [facility] [address] [id number] [address] [place] [address], [place] [address] Apr, [facility] [address] [id number] [address] [place] [id number] Apr, [facility] [address] [id number] [address] [place] [address], [place] [address] Apr, [facility] [address] [id number] [address] [place] [address], [place] [address] Apr, [facility] [address] [id number] [address] [place] [id number] Apr, [facility] [address] [id number] [address] [place] [id number] Apr, [facility] [address] [id number] [address] [place] [address], [place] [address] Apr, [facility] [address] [id number] [address] [place] [address] Apr, [facility] [address] [id number] [address] [place] [id number] Apr, [facility] [address] [id number] [address] [place] [address], [place] [address] Apr, [facility] [address] [id number] [address] [place] [address], [place] [address] Apr, [facility] [address] [id number] [address] [place] [address], [place] [address] Apr, [facility] [address] [id number] [address] [place] [address], [place] [address] Apr, [facility] [address] [id number] [address] [place] [address], [place] [address] Apr, [facility] [address] [id number] [address] [place] [address], [place] [address] Apr, [facility] [address] [id number] [address] [place] [address], [place] [address] Apr, [facility] [address] [id number] [address] [place] [address], [place] [address] Apr, [facility] [address] [id number] [address] [place] [address], [place] [address] Mar, [facility] [address] [id number] [address] [place] [address], [place] [address] Mar, [facility] [address] [id number] [address] [place] [address], [place] [address] Mar, [facility] [address] [id number] [address] [place] [address], [place] [address] Mar, [facility] [address] [id number] [address] [place] [address], [place] [address] Mar, [facility] [address] [id number] [address] [place] [address], [place] [address] Mar, [facility] [address] [id number] [address] [place] [address], [place] [address] Mar, [facility] [address] [id number] [address] [place] [address], [place] [address] Mar, [facility] [address] [id number] [address] [place] [address], [place] [address] Mar, [facility] [address] [id number] [address] [place] [address], [place] [address] Mar, [facility] [address] [id number] [address] [place] [address], [place] [address] Feb, [facility] [address] [id number] [address] [place] [address], [place] [address] Feb, [facility] [address] [id number] [address] [place] [address], [place] [address] Feb, [facility] [address] [id number] [address] [place] [address], [place] [address] Feb, [facility] [address] [id number] [address] [place] [address], [place] [address] Jan, [facility] [address] [id number] [address] [place] [address], [place] [address] Jan, [facility] [address] [id number] [address] [place] [address], [place] [address] Jan, [facility] [address] [id number] [address] [place] [address], [place] [address] Jan, [facility] [address] [id number] [address] [place] [address], [place] [address] Jan, [facility] [address] [id number] [address] [place] [address], [place] [address] Jan, [facility] [address] [id number] [address] [place] [address], [place] [address] Dec, [facility] [address] [id number] [address] [place] [address], [place] [address] Dec, [facility] [address] [id number] [address] [place] [address], [place] [address] Nov, [facility] [address] [id number] [address] [place] [address], [place] [address] Nov, [facility] [address] [id number] [facility] [place] [address] Nov, [facility] [address] [id number] [address] [place] [address], [place] [address] Nov, [facility] [address] [id number] [address] [place] [address], [place] [address] Nov, [facility] [address] [id number] [address] [place] [address], [place] [address] Nov, [facility] [address] [id number] [address] [place] [address], [place] [address] Sep, [facility] [address] [id number] [address] [place] [address], [place] [address] Sep, [facility] [address] [id number] [address] [place] [address], [place] [address] Sep, [facility] [address] [id number] [address] [place] [address], [place] [address] Sep, [facility] [address] [id number] [address] [place] [address], [place] [address] Aug, [facility] [address] [id number] [address] [place] [address], [place] [address] Aug, [facility] [address] [id number] [address] [place] [address], [place] [address] Jul, [facility] [address] [id number] [address] [place] [address], [place] [address] Jul, [facility] [address] [id number] [address] [place] [address], [place] [address] Jun, [facility] [address] [id number] [address] [place] [address], [place] [address] Jun, [facility] [address] [id number] [address] [place] [address], [place] [address] Jun, [facility] [address] [id number] [address] [place] [address], [place] [address] 16 Jun, 2013 [facility] [address] [id number] [address] [place] [address], [place] [address] May, [facility] [address] [id number] [address] [place] [address], [place] [address] May, [facility] [address] [id number] [address] [place] [address], [place] [address] May, [facility] [address] [id number] [address] [place] [address], [place] [address] May, [facility] [address] [id number] [address] [place] [address], [place] [address] May, [facility] [address] [id number] [address] [place] [address], [place] [address] May, [facility] [address] [id number] [address] [place] [address], [place] [address] Apr, [facility] [address] [id number] [address] [place] [address], [place] [address] Apr, [facility] [address] [id number] [address] [place] [address], [place] [address] Apr, [facility] [address] [id number] [address] [place] [address], [place] [address] Apr, [facility] [address] [id number] [address] [place] [address], [place] [address] Mar, [facility] [address] [id number] [address] [place] [address], [place] [address] Mar, [facility] [address] [id number] [address] [place] [address], [place] [address] Mar, [facility] [address] [id number] [address] [place] [address], [place] [address] Mar, [facility] [address] [id number] [address] [place] [address], [place] [address] Feb, [facility] [address] [id number] [place] [id number] Jan, [facility] [address] [id number] [address] [place] [phone] Jan, [facility] [address] [id number] [address] [place] [phone] Dec, [facility] [address] [id number] [address] [place] [phone] Dec, [facility] [address] [id number] [address] [place] [id number] Dec, [facility] [address] [id number] [place] [id number] Dec, [facility] [address] [id number] [address] [place] [id number] Nov, [facility] [address] [id number] [address] [place] [phone] Nov, [facility] [address] [id number] [address] [place] [id number] Nov, [facility] [address] [id number] [address] [place] [phone] Nov, [facility] [address] [id number] [address] [place] [phone] Nov, [facility] [address] [id number] [address] [place] [phone] October, [facility] [address] [id number] [address] [place] [id number] October, [facility] [address] [id number] [address] [place] [phone] Aug, [facility] [address] [id number] [address] [place] [phone] 13 Nov, 2011 IMMUNIZATIONS No Known Immunizations [...] 03/2016 Hospitalization History gastric sleeve Hospitalization History [facility] Trouble with left shoulder blade 08/2017
--- OUTSIDE RECORDS SUMMARY | 2019-11-29 09:18 | XMS REPORT ---
Author Author Curt Jerome ARLEN Organization [facility] Address [address] [place] [address] Care Team Providers Care Gericare Aide Teacher Name Role Phone francoGENIE WattsETTE Unavailable PROBLEMS Type Condition ICD9-CM Code JMJ47-CA Code Onset Dates Condition S tatus SNOMED Code Problem Insomnia G47.00 Active 305292587 Problem Benign essential hypertension I10 Active 0952081 Problem Hyperlipemia E78.5 Active 2112243 4 Problem Edema R60.9 Active 429520724 Problem Morbid obesity E66.01 Active 03275 6002 Problem Severe episode of recurrent major depressive disorder, without psychotic features F33.2 Active 48027000 Problem Vitamin D deficiency E55.9 Active 58591589 Problem Mixed obsessional thoughts and acts F42.2 Active 33393405 Problem Chronic fatigue R53.82 Active 8422 9001 Problem Metabolic syndrome E88.81 Active 2 25714294 Problem Other chronic pain G89.29 Active 8 4143612 Problem Renal insufficiency N28.9 Active 876927152 Problem BMI 45.0-49.9, adult Z68.42 Active 511488514 Problem DANIELA (generalized anxiety disorder) F41.1 Active 10506381 Problem Sciatica, right side M54.31 Active [id number] Problem 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 Active 20722860 ALLERGIES No Information ENCOUNTERS Encounter Location Date Diagnosis [facility] [address] [id number] [id number] Jan, [facility] [address] [facility] [id number] [address] [place] [phone] Dec, [facility] [address] [id number], [place] [id number] Dec, Morbid obesity E66.01 [facility] [address] [facility] [id number] [address] [place] [phone] Dec, [facility] [address] [facility] [id number] [address] [place] [phone] Dec, [facility] JENNY LICEA [address] [address] Nov, [facility] [address] [id number], [place] [id number] Nov, [facility] [address] [facility] [id number] [address] [place] [phone] Nov, [facility] [address] [facility] [id number] [address] [place] [phone] Nov, [facility] [address] [facility] [id number] [address] [place] [phone] Nov, DANIELA (generalized anxiety dis order) F41.1 ; Severe episode of recurrent major depressive disorder, without psychotic features F33.2 ; Mixed obsessional thoughts and acts F42.2 and 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 [facility] [address] [id number], [place] [id number] Nov, Morbid obesity E66.01 [facility] [address] [facility] [id number] [address] [place] [phone] Nov, [facility] [address] [facility] [id number] [address] [place] [phone] Nov, DANIELA (generalized anxiety dis order) F41.1 ; Mixed obsessional thoughts and acts F42.2 ; Severe episode of recurrent major depressive disorder, without psychotic features F33.2 and 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 [facility] [address] [id number], [place] [id number] October, Morbid obesity E66.01 [facility] [address] [id number], [place] [id number] October, Benign essential hypertension I10 and Mo rbid obesity E66.01 [facility] [address] [id number], [place] [id number] October, [facility] [address] [facility] [id number] [address] [place] [phone] October, Severe episode of recurrent major depressive disorder, without psychotic features F33.2 [facility] [address] [id number], [place] [id number] October, Morbid obesity E66.01 [facility] [place] [address] [facility] [id number] [place] [address] [id number] October, [facility] [address] [facility] [id number] [address] [place] [phone] October, Severe episode of recurrent major depressive disorder, without psychotic features F33.2 ; DANIELA (generalized anxiety disorder) F41.1 ; Mixed obsessional thoughts and acts F42.2 and Dependent personality disorder F60.[address] [id number], [place] [id number] October, Morbid obesity E66.01 [facility] [address] [place] [id number] [address] [place] [address] [id number] Sep, Dental examination Z01.20 [facility] [address] [facility] [id number] [place] [address] [id number] Sep, [facility] [address] [place] [id number] [address] [place] [phone] Sep, Sore in mouth K13.79 and Mor bid obesity E66.01 [facility] [address] [place] [id number] [address] [place] [address] Sep, Dental examination Z01.20 [facility] [address] [facility] [id number] [address] [place] [address] Sep, Anxiety disorder, unspecifie d F41.9 [facility] [address] [id number], [place] [id number] Sep, Mouth ulcer K12.[address] [id number] [place] [address] [id number] Sep, Morbid obesity E66.01 [facility] [address] [place] [address] AV [id number], [place] [id number] Sep, Allergic rhinitis, unspecified seasonali ty, unspecified trigger J30.9 and Shortness of breath R06.02 [facility] [address] [place] [address] AV [id number], [place] [id number] Sep, 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 [facility] [address] [place] [address] AV [id number], [place] [id number] Aug, Mouth abscess K12.2 ; Mouth ulcer K12.1 ; Bloating R14.0 and Morbid obesity E66.01 [facility] [address] [place] [address] [id number], [place] [id number] Aug, [facility] [address] [address] [place] [address] [id number], [place] [id number] Aug, [facility] [address] [place] [id number], [place] [id number] Jul, Major depressive disorder, recurrent, mo derate F33.1 ; Abscess of arm, left L02.414 ; BMI 45.0-49.9, adult Z68.42 and Morbid obesity E66.01 [facility] [address] [place] [address] AV [id number], [place] [id number] Jul, [facility] [address] [place] [address] [id number], [place] [id number] Jul, [facility] [address] [id number], [place] [id number] Jun, Pain in right knee M25.561 and Other chr onic pain G89.[address] [id number], [place] [id number] Jun, Benign essential hypertension I10 ; BMI 45.0-49.9, adult Z68.42 ; Morbid obesity E66.01 ; Vitamin D deficiency E55.9 ; Insomnia G47.00 ; 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 ; Edema R60.9 ; Recurrent major depressive disorder, in partial remission F33.41 ; Chronic fatigue R53.82 ; Acute pain of right knee M25.561 ; Metabolic syndrome E88.81 and Irritable mood R45.4 [facility] [address] [facility] [id number] [address] [place] [phone] 16 Jun, 2018 [facility] [address] [id number], [place] [id number] Jun, Irritable mood R45.4 [facility] [address] [facility] [id number] [address] [place] [phone] May, [facility] [address] [facility] [id number] [address] [place] [phone] May, [facility] [address] [facility] [id number] [address] [place] [phone] May, Recurrent major depressive d isorder, in partial remission F33.41 ; Mixed obsessional thoughts and acts F42.2 ; 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 and BMI 45.0-49.9, adult Z68.42 [facility] [address] [facility] [id number] [address] [place] [phone] 27 Apr, 2018 [facility] [address] [facility] [id number] [address] [place] [phone] Apr, [facility] [address] [facility] [id number] [address] [place] [phone] Apr, [facility] [address] [facility] [id number] [address] [place] [phone] Apr, [facility] [address] [facility] [id number] [address] [place] [phone] Mar, Mixed obsessional thoughts a nd acts F42.2 ; Recurrent major depressive disorder, in partial remission F33.41 ; DANIELA (generalized anxiety disorder) F41.1 and BMI 45.0-49.9, adult Z68.42 [facility] [address] [id number], [place] [id number] Mar, [facility] [address] [id number], [place] [id number] Mar, BMI 45.0-49.9, adult Z68.42 ; Instabilit y of right knee joint M25.361 and Rash R21 [facility] [address] [facility] [id number] [address] [place] [address] Jan, Recurrent major depressive d isorder, in partial remission F33.41 ; Mixed obsessional thoughts and acts F42.2 and BMI 45.0-49.9, adult Z68.42 [facility] [address] [id number], [place] [id number] Jan, [facility] [address] [id number], [place] [id number] Jan, Benign essential hypertension I10 ; BMI 45.0-49.9, adult Z68.42 ; Metabolic syndrome E88.81 and Allergic rhinitis, unspecified seasonality, unspecified trigger J30.9 [place] [address] [facility] [id number] [address] [place] [phone] Dec, DANIELA (generalized anxiety dis order) F41.1 and Depressive disorder, not elsewhere classified F32.9 [facility] [address] [id number], [place] [id number] Dec, Recurrent major depressive disorder, in partial remission F33.41 [facility] [address] [id number], [place] [id number] Dec, [facility] [address] [id number], [place] [id number] Nov, [facility] [address] [id number], [place] [id number] Nov, Recurrent major depressive disorder, in partial remission F33.41 [place] [address] [facility] [id number] [address] [place] [phone] Nov, Recurrent major depressive d isorder, in partial remission F33.41 ; Mixed obsessional thoughts and acts F42.2 ; DANIELA (generalized anxiety disorder) F41.1 and BMI 45.0-49.9, adult Z68.42 [facility] [address] [id number], [place] [id number] Nov, [facility] [address] [id number], [place] [id number] Nov, Other conjunctivitis of both eyes H10.89 and Sciatica, right side M54.31 [facility] [address] [id number], [place] [id number] Nov, [facility] [address] [id number], [place] [id number] Nov, [facility] [address] [id number], [place] [id number] October, [facility] [address] [place] [address] AVE [id number], [place] [id number] October, [facility] [address] [facility] [id number] [address] [place] [phone] October, BMI 45.0-49.9, adult Z68.42 ; Mixed obsessional thoughts and acts F42.2 ; Recurrent major depressive disorder, in partial remission F33.41 and DANIELA (generalized anxiety disorder) F41.1 [facility] [address] [id number], [place] [id number] October, Benign essential hypertension I10 ; Morb id obesity E66.01 and BMI 45.0-49.9, adult Z68.42 [facility] [address] [id number], [place] [id number] Sep, [facility] [address] [id number], [place] [id number] Sep, [facility] [address] [id number], [place] [id number] Sep, [facility] [address] [place] [address] AVE [id number], [place] [id number] Sep, Hospital discharge follow-up Z09 ; Aller gic rhinitis, unspecified seasonality, unspecified trigger J30.9 and Shortness of breath R06.02 [facility] [address] [id number], [place] [id number] Sep, Recurrent major depressive disorder, in partial remission F33.[address] [id number], [place] [id number] 15 Aug, 2017 Irritable mood R45.4 [place] [address] [facility] [id number] [address] [place] [phone] 09 Aug, [address] [id number], [place] [id number] 22 Jul, 2017 Benign essential hypertension I10 ; Robert a R60.9 and Impacted cerumen of left ear H61.22 [place] [address] [facility] [id number] [address] [place] [phone] 14 Jul, 2017 Major depression F32.9 ; Rec urrent major depressive disorder, in partial remission F33.41 and Anxiety F41.9 [place] [address] [facility] [id number] [address] [place] [phone] Jun, Major depression F32.9 ; Rec urrent major depressive disorder, in partial remission F33.41 and Anxiety F41.[address] [id number], [place] [id number] Jun, Major depression F32.9 ; Morbid obesity E66.01 ; Irritable mood R45.4 ; Hand weakness R29.898 and Vitamin D deficiency E55.9 [facility] [address] [id number], [place] [id number] Jun, [address] [id number], [place] [id number] May, Major depression F32.9 [place] [address] [facility] [id number] [address] [place] [phone] May, Major depression F32.[address] [id number], [place] [id number] May, BMI 50.0-59.9, adult Z68.43 ; Major depr ession F32.9 ; Anxiety F41.9 ; Hypertrophic toenail L60.2 and Pain of left great toe M79.675 [facility] [address] [id number], [place] [id number] May, Recurrent major depressive disorder, in partial remission F33.41 [facility] [address] [place] [id number] [address] [place] [phone] Apr, [facility] [id number] [place] [address] [id number] Apr, [facility] [address] [place] [id number] [address] [place] [phone] Apr, Major depression F32.[address] [place] [id number] [place] [address] [id number] Apr, Severe episode of recurrent major depres sive disorder, without psychotic features F33.2 ; Anxiety F41.[address] [facility] [id number] [place] [address] [id number] Apr, [facility] [address] [facility] [id number] [address] [place] [phone] Apr, [facility] [id number] [place] [address] [id number] Apr, [facility] [address] [id number], [place] [id number] Mar, [facility] [id number] [place] [address] [id number] Mar, Allergic conjunctivitis of both eyes H10 .13 [facility] [address] [facility] [id number] [address] [place] [phone] Mar, Major depression F32.9 [facility] [id number] [place] [address] [id number] Mar, Metabolic syndrome E88.81 ; History of g astric bypass Z98.890 ; Benign essential hypertension I10 ; Allergic conjunctivitis of both eyes H10.13 and Morbid obesity E66.01 [facility] [address] [place] [id number] [address] [place] [address] Mar, Major depression F32.[address] [place] [facility] [address] [id number] [place] [address] [id number] Feb, [facility] [address] [facility] [id number] [address] [place] [phone] Feb, Major depression F32.[address] [id number] [place] [address] [id number] Feb, Subacute maxillary sinusitis J01.00 and Bronchitis J40 [place] [address] [place] [id number] [address] [place] [phone] Feb, Major depressive disorder, r ecurrent, moderate F33.[address] [facility] [address] [id number] [place] [id number] Jan, [address] [id number] [place] [address] [id number] Jan, Acute non-recurrent maxillary sinusitis J01.00 and Skin tag L91.[address] [id number] [place] [address] [id number] Jan, Cough R05 and Sinus congestion R09.[address] [id number] [place] [address] [id number] Jan, [address] [id number] [place] [address] [id number] Jan, Benign essential hypertension I10 ; Hist ory of gastric bypass Z98.890 and Nausea and vomiting in adult R11.2 [place] [address] [facility] [id number] [address] [place] [phone] Jan, Major depressive disorder, r ecurrent, moderate F33.1 [place] [address] [facility] [id number] [address] [place] [phone] Dec, Insomnia G47.00 ; Recurrent major depressive disorder, in partial remission F33.41 and Morbid obesity E66.01 [facility] [address] [facility] [address] [id number], [place] [id number] Dec, [place] [address] [facility] [address] [id number], [place] [id number] Dec, Chronic bacterial conjunctivitis of left eye H10.[id number] [place] [address] [id number] Nov, [id number] [place] [address] [id number] Nov, Dental examination Z01.[address] [place] [address] [id number] Nov, Benign essential hypertension I10 ; Hist ory of gastric bypass Z98.890 and Nausea and vomiting in adult R11.2 [place] [address] [place] [id number] [address] [place] [phone] Nov, Major depressive disorder, r ecurrent, moderate F33.1 ; Generalized anxiety disorder F41.1 and Insomnia due to other mental disorder F51.05 [place] [address] [place] [id number] [address] [place] [phone] Nov, Recurrent major depressive d isorder, in partial remission F33.41 ; Insomnia G47.00 and Morbid obesity E66.01 [facility] [address] [id number] FANNY, Kiesha S [id number] October, Abscess of left arm L02.414 [place] [address] [place] [id number] [address] [place] [phone] October, Morbid obesity E66.01 ; Lida r depression F32.9 and Recurrent major depressive disorder, in partial remission F33.41 [facility] [address] [facility] [address] [id number], [place] [id number] Sep, Benign essential hypertension I10 ; Morb id obesity E66.01 ; S/P gastric bypass Z98.84 ; Abscess L02.91 and Chronic bacterial conjunctivitis of left eye H10.402 [facility] [address] [id number], [place] [id number] Sep, Dental examination Z01.20 [place] [address] [facility] [id number] [address] [place] [phone] Sep, Morbid obesity E66.01 ; Lida r depression F32.9 and Recurrent major depressive disorder, in partial remission F33.41 [place] [address] [facility] [id number] [address] [place] [phone] Jul, [place] [address] [facility] [id number] [address] [place] [phone] Jul, Major depressive disorder, r ecurrent, moderate F33.1 [place] [address] [place] [id number] [address] [place] [phone] Jul, Major depressive disorder, r ecurrent, moderate F33.1 and Generalized anxiety disorder F41.[address] [id number], [place] [id number] Jul, Cough R05 [place] [address] [facility] [id number] [address] [place] [phone] 16 Jul, 2016 Morbid obesity E66.01 ; Lida r depression F32.9 and Recurrent major depressive disorder, in partial remission F33.41 [facility] [address] [id number], [place] [id number] Jul, [facility] [address] [id number], [place] [id number] Jul, [facility] [address] [id number], [place] [id number] Jul, Gastroenteritis K52.9 and Cough R05 [place] [address] [id number], [place] [id number] Jun, Acute bacterial conjunctivitis of left e ye H10.32 [place] [address] [facility] [id number] [address] [place] [phone] Jun, [place] [address] [facility] [id number] [address] [place] [id number] Jun, Recurrent major depressive d isorder, in partial remission F33.41 [place] [address] [address] [facility] [id number] [address] [place] [id number] May, Major depression F32.9 and M orbid obesity E66.01 [place] [address] [address] [facility] [id number] [address] [place] [phone] May, [place] [id number] [place] [id number] May, Thrush B37.0 [place] [address] [address] [place] [id number] [address] [place] [phone] Apr, Major depressive disorder, r ecurrent, moderate F33.1 [place] [address] [address] [place] [id number] [address] [place] [id number] Apr, Insomnia G47.00 ; Major depr ession F32.9 and Recurrent major depressive disorder, in partial remission F33.41 [place] [address] [address] [place] [id number] [address] [place] [id number] Apr, [place] [address] [address] [facility] [id number] [address] [place] [phone] Apr, Major depression F32.9 and R ecurrent major depressive disorder, in partial remission F33.41 [facility] [id number] [place] [id number] Mar, Benign essential hypertension I10 ; Morb id obesity E66.01 ; Impacted cerumen of both ears H61.23 ; Laceration of finger of right hand, initial encounter S61.219A and Encounter for immunization Z23 [place] [address] [address] [facility] [id number] [address] [place] [id number] Mar, [facility] [address] [facility] [id number] [address] [place] [id number] Mar, [facility] [address] [facility] [id number] [address] [place] [id number] Mar, [facility] [address] [id number] [id number] Feb, Nausea R11.0 ; Blood in the stool K92.1 and Benign essential hypertension I10 [facility] [address] [facility] [id number] [address] [place] [address] Feb, Major depression F32.9 and R ecurrent major depressive disorder, in partial remission F33.41 [facility] [address] [id number][place] [id number] Feb, [facility] [address] [id number], [place] [id number] Feb, Recurrent major depressive disorder, in partial remission F33.41 [facility] [address] [id number], [place] [id number] Jan, [facility] [address] [id number][place] [id number] Jan, Benign essential hypertension I10 ; Robert a R60.9 and Hyperlipidemia, unspecified hyperlipidemia type E78.5 [facility] [address] [id number], [place] [id number] Jan, Recurrent major depressive disorder, in partial remission F33.41 [facility] [place] [address] [id number] [place] [id number] Jan, [facility] [address] [id number], [place] [id number] Jan, [facility] [address] [id number], [place] [id number] Jan, [facility] [address] [facility] [id number] [address] [place] [address] Jan, [facility] [address] [facility] [id number] [address] [place] [address] Dec, [facility] [address] [facility] [id number] [address] [place] [address] Nov, [facility] [address] [facility] [id number] [address] [place] [address] Nov, Major depression F32.9 [facility] [address] [facility] [id number] [address] [place] [address] Nov, [facility] [address] [facility] [id number] [address] [place] [address] Nov, [facility] [address] [place] [id number] [address] [place] [address] Nov, Major depressive disorder, r ecurrent episode, mild F33.0 and Anxiety F41.[address] [place] [id number] [place] [id number] Nov, [address] [id number] [place] [address] [id number] October, Left elbow pain M25.522 and Other season al allergic rhinitis J30.[address] [id number] [place] [address] [id number] October, [facility] [address] [facility] [id number] [address] [place] [address] October, Major depressive disorder, r ecurrent, moderate F33.1 [facility] [address] [facility] [id number] [address] [place] [address] October, Major depression F32.9 [facility] [address] [facility] [id number] [address] [place] [address] Sep, [place] or callus L84 and Onych omycosis B35.1 [facility] [address] [facility] [id number] [address] [place] [address] Sep, Major depressive disorder, r ecurrent, moderate F33.1 [facility] [address] [facility] [id number] [address] [place] [address] Sep, Major depression F32.9 [facility] [address] [facility] [id number] [address] [place] [address] Sep, Moderate episode of recurren t major depressive disorder F33.1 [facility] [address] [id number], [place] [id number] 05 Sep, 2015 Muscle strain T14.8 [facility] [address] [facility] [id number] [address] [place] [address] Aug, Major depression F32.9 [facility] [address] [facility] [id number] [address] [place] [address] Aug, Major depression F32.9 [facility] [address] [facility] [id number] [address] [place] [address] Jul, Morbid obesity E66.01 and Ma cora depression F32.9 [facility] [address] [facility] [id number] [address] [place] [address] Jul, Depression, major, recurrent , moderate F33.1 [facility] [address] [facility] [address] [id number][place] [id number] Jul, [facility] [address] [facility] [id number] [address] [place] [phone] Jul, [facility] [address] [facility] [id number] [address] [place] [address] Jul, Major depression F32.9 and M orbid obesity E66.01 [facility] [address] [facility] [address] [id number][place] [id number] 11 Jul, 2015 Type II diabetes mellitus E11.9 ; Callus of foot L84 ; Benign essential hypertension I10 and Renal insufficiency N28.9 [facility] [address] [facility] [id number] [address] [place] [phone] 09 Jul, 2015 Depression, major, recurrent , moderate F33.1 [facility] [address] [facility] [id number] [address] [place] [phone] Jul, Major depression F32.9 [facility] [address] [facility] [id number] [address] [place] [phone] Jul, [facility] [address] [facility] [id number] [address] [place] [address] Jun, Major depression F32.9 [facility] [address] [facility] [id number] [address] [place] [address] Jun, Major depressive disorder, r ecurrent, moderate F33.1 [place] [address] [facility] [id number] [address] [place] [address] Jun, [facility] [address] [facility] [id number] [address] [place] [address] Jun, Major depressive disorder, r ecurrent, moderate F33.1 and Major depression F32.9 [facility] [id number] [place] [address] [id number] Jun, Type II diabetes mellitus E11.9 [place] [address] [facility] [id number] [address] [place] [address] Jun, Depression, major, recurrent , moderate F33.1 [place] [address] [facility] [id number] [address] [place] [phone] May, Major depressive disorder, r ecurrent, moderate F33.1 [place] [address] [facility] [id number] [address] [place] [address] May, [facility] [id number] [place] [address] [id number] May, Edema R60.9 [facility] [address] [facility] [id number] [address] [place] [address] May, Insomnia G47.00 and Major de pression F32.9 [facility] [address] [id number], [place] [id number] 15 May, 2015 Morbid obesity E66.01 ; Edema R60.9 ; Sh ortness of breath R06.02 ; Benign essential hypertension I10 and Renal insufficiency N28.9 [facility] [address] [facility] [address] [id number], [place] [id number] 14 May, 2015 Hyperlipemia 272.4 and Renal insufficien cy N28.9 [facility] [address] [facility] [id number] [address] [place] [address] Apr, Major depression F32.9 [place] [address] [facility] [id number] [address] [place] [phone] Apr, [place] [address] [facility] [id number] [address] [place] [address] Apr, Major depressive disorder, r ecurrent, moderate F33.[address] [id number], [place] [id number] Apr, Type II diabetes mellitus E11.9 ; Benign essential hypertension I10 ; Edema R60.9 and Renal insufficiency N28.9 [place] [address] [facility] [id number] [address] [place] [address] Mar, Major depressive disorder, r ecurrent, moderate F33.1 [place] [address] [facility] [id number] [address] [place] [address] Mar, [place] [address] [facility] [id number] [address] [place] [address] Mar, Major depression F32.[address] [id number], [place] [id number] Mar, Morbid obesity E66.01 ; Benign essential hypertension I10 and Type II diabetes mellitus E11.9 [place] [address] [facility] [id number] [address] [place] [phone] Feb, Major depressive disorder, r ecurrent, moderate F33.1 [place] [address] [facility] [id number] [address] [place] [address] Feb, Major depressive disorder, r ecurrent episode, in partial or unspecified remission 296.35 ; Anxiety state, unspecified 300.00 and Morbid obesity 278.01 [facility] [address] [facility] [id number] [address] [place] [address] Feb, [address] [id number][place] [id number] Feb, Vomiting 787.03 and Viral syndrome 079.9 9 [place] [address] [place] [id number] [address] [place] [address] 15 Feb, 2015 Major depression, recurrent 296.30 ; Generalized anxiety disorder 300.02 and No condition on [place] II V71.[address] [id number] [place] [address] [id number] Feb, Skin tag 701.[id number] [place] [address] Feb, [place] [id number] [address] [place] [address] Jan, Depression, major, recurrent , moderate 296.[address] [id number], [place] [id number] Jan, Nausea and vomiting 787.01 ; Rib pain on right side 786.50 and Fall on or from sidewalk curb E880.1 [place] [address] [place] [id number] [address] [place] [phone] Jan, [address] [id number] [address] [place] [address] Jan, Major depressive disorder, r ecurrent episode, in partial or unspecified remission 296.35 and Anxiety state, unspecified 300.[address] [id number], [place] [id number] Jan, [place] [address] [facility] [id number] [address] [place] [phone] Jan, Depression, major, recurrent , moderate 296.32 [place] [id number] [address] [place] [address] Jan, Major depression, recurrent 296.30 ; No condition on [place] II V71.09 and No condition on axis III V71.09 [facility] [address] [facility] [address] [id number], [place] [id number] Jan, Drug-induced nausea and vomiting 787.01 [place] [id number] [address] [place] [address] Jan, Depression, major, recurrent , moderate 296.32 [place] [id number] [address] [place] [address] Dec, Depression, major, recurrent , moderate 296.32 [facility] [address] [facility] [address] [id number], [place] [id number] Dec, Morbid obesity 278.01 ; Metabolic syndro me 277.7 ; Hyperlipemia 272.4 ; Benign essential hypertension 401.1 ; Dietary counseling V65.3 ; Exercise counseling V65.41 and Inflamed skin tag 701.9 [place] [id number] [address] [place] [address] Dec, Depression, major, recurrent , moderate 296.32 [place] [id number] [address] [place] [address] Dec, [address] [address] Dec, Major depression, recurrent 296.30 ; Anxiety, generalized 300.02 and No condition on [place] II V71.[address] [address] Dec, Depression, major, recurrent , moderate 296.32 [place] [id number] [address] [place] [address] Dec, Major depressive disorder, r ecurrent episode, moderate 296.32 [place] [address] [place] [id number] [address] [place] [address] Dec, Depression, major, recurrent , moderate 296.32 [place] [address] [place] [id number] Dec, Depression, major, recurrent , moderate 296.32 [place] [address] [place] [id number] Dec, Depression, major, recurrent , moderate 296.32 [place] [address] [place] [id number] Dec, Depression, major, recurrent , moderate 296.32 [place] [address] [place] [id number] Nov, Depression, major, recurrent , moderate 296.32 [place] [address] [place] [id number] Nov, Major depression 296.20 ; So cial phobia 300.23 and No condition on [place] II V71.09 [place] [address] [address] Nov, Depression, major, recurrent , moderate 296.32 [place] [address] [address] Nov, Major depressive disorder, r ecurrent episode, moderate 296.32 and Generalized anxiety disorder 300.02 [place] [address] [address] Nov, Depression, major, recurrent , moderate 296.32 [place] [address] [place] [id number] Nov, Depression, major, recurrent , moderate 296.32 [place] [address] [address] October, Generalized anxiety disorder 300.02 ; No condition on [place] II V71.09 and Major depressive disorder, recurrent 296.30 [facility] [address] [id number] [address] [place] [address], [place] [address] 14 Sep, 2014 [facility] [address] [id number] [address] [place] [address], [place] [address] 13 Sep, 2014 [facility] [address] [id number] [address] [place] [address], [place] [address] 24 Aug, 2014 [facility] [address] [id number] [address] [place] [address], [place] [address] 24 Aug, 2014 [facility] [address] [id number] [address] [place] [address], [place] [address] 23 Aug, 2014 [facility] [address] [id number] [address] [place] [address], [place] [address] 23 Aug, 2014 [facility] [address] [id number] [address] [place] [address], [place] [address] 20 Aug, 2014 [facility] [address] [id number] [address] [place] [address], [place] [address] 20 Aug, 2014 [facility] [address] [id number] [address] [place] [address], [place] [address] 20 Aug, 2014 [facility] [address] [id number] [address] [place] [address], [place] [address] 20 Aug, 2014 [facility] [address] [id number] [address] [place] [address], [place] [address] 13 Aug, 2014 [facility] [address] [id number] [address] [place] [id number] 13 Aug, 2014 [facility] [address] [id number] [address] [place] [address], [place] [address] 13 Aug, 2014 [facility] [address] [id number] [address] [place] [address], [place] [address] 13 Aug, 2014 [facility] [address] [id number] [address] [place] [address], [place] [address] 12 Aug, 2014 [facility] [address] [id number] [address] [place] [address], [place] [address] Aug, [facility] [address] [id number] [address] [place] [address], [place] [address] Aug, [facility] [address] [id number] [address] [place] [address], [place] [address] Aug, [facility] [address] [id number] [address] [place] [address], [place] [address] Aug, [facility] [address] [id number] [address] [place] [address], [place] [address] Aug, [facility] [address] [id number] [address] [place] [address], [place] [address] Jul, [facility] [address] [id number] [address] [place] [address], [place] [address] Jul, [facility] [address] [id number] [address] [place] [address], [place] [address] Jul, [facility] [address] [id number] [address] [place] [address], [place] [address] Jul, [facility] [address] [id number] [address] [place] [address], [place] [address] Jul, [facility] [address] [id number] [address] [place] [address], [place] [address] Jul, [facility] [address] [id number] [address] [place] [address], [place] [address] Jun, [facility] [address] [id number] [address] [place] [address], [place] [address] Jun, [facility] [address] [id number] [address] [place] [address], [place] [address] Jun, [facility] [address] [id number] [address] [place] [address], [place] [address] Jun, [facility] [address] [id number] [address] [place] [address], [place] [address] Jun, [facility] [address] [id number] [address] [place] [address], [place] [address] Jun, [facility] [address] [id number] [address] [place] [address], [place] [address] Jun, [facility] [address] [id number] [address] [place] [address], [place] [address] Jun, [facility] [address] [id number] [address] [place] [address], [place] [address] Jun, [facility] [address] [id number] [address] [place] [address], [place] [address] Jun, [facility] [address] [id number] [address] [place] [address], [place] [address] Jun, [facility] [address] [id number] [address] [place] [address], [place] [address] Jun, [facility] [address] [id number] [place] [id number] Jun, [facility] [address] [id number] [address] [place] [address], [place] [address] Jun, [facility] [address] [id number] [address] [place] [address], [place] [address] Jun, [facility] [address] [id number] [address] [place] [address], [place] [address] Jun, [facility] [address] [id number] [address] [place] [address], [place] [address] May, [facility] [address] [id number] [address] [place] [address], [place] [address] May, [facility] [address] [id number] [address] [place] [address], [place] [address] May, [facility] [address] [id number] [address] [place] [address], [place] [address] May, [facility] [address] [id number] [address] [place] [address], [place] [address] Apr, [facility] [address] [id number] [address] [place] [address], [place] [address] Apr, [facility] [address] [id number] [address] [place] [address], [place] [address] Apr, [facility] [address] [id number] [address] [place] [address], [place] [address] Apr, [facility] [address] [id number] [address] [place] [address], [place] [address] Apr, [facility] [address] [id number] [address] [place] [address], [place] [address] Apr, [facility] [address] [id number] [address] [place] [address], [place] [address] Apr, [facility] [address] [id number] [address] [place] [address], [place] [address] Apr, [facility] [address] [id number] [address] [place] [address], [place] [address] Apr, [facility] [address] [id number] [address] [place] [address], [place] [address] Apr, [facility] [address] [id number] [address] [place] [address], [place] [address] Apr, [facility] [address] [id number] [address] [place] [address], [place] [address] Apr, [facility] [address] [id number] [address] [place] [address], [place] [address] Apr, [facility] [address] [id number] [address] [place] [address], [place] [address] Apr, [facility] [address] [id number] [address] [place] [address], [place] [address] Apr, [facility] [address] [id number] [address] [place] [address], [place] [address] Apr, [facility] [address] [id number] [address] [place] [address], [place] [address] Apr, [facility] [address] [id number] [address] [place] [address], [place] [address] Apr, [facility] [address] [id number] [address] [place] [address], [place] [address] Apr, [facility] [address] [id number] [address] [place] [address], [place] [address] Apr, [facility] [address] [id number] [address] [place] [address], [place] [address] Mar, [facility] [address] [id number] [address] [place] [address], [place] [address] Mar, [facility] [address] [id number] [address] [place] [address], [place] [address] Mar, [facility] [address] [id number] [address] [place] [address], [place] [address] Mar, [facility] [address] [id number] [address] [place] [address], [place] [address] Mar, [facility] [address] [id number] [address] [place] [address], [place] [address] Mar, [facility] [address] [id number] [address] [place] [address], [place] [address] Mar, [facility] [address] [id number] [address] [place] [address], [place] [address] Mar, [facility] [address] [id number] [address] [place] [address], [place] [address] Mar, [facility] [address] [id number] [address] [place] [address], [place] [address] Mar, [facility] [address] [id number] [address] [place] [address], [place] [address] Feb, [facility] [address] [id number] [address] [place] [address], [place] [address] Feb, [facility] [address] [id number] [address] [place] [address] Feb, [facility] [address] [id number] [address] [place] [address], [place] [address] Feb, [facility] [address] [id number] [address] [place] [address], [place] [address] Jan, [facility] [address] [id number] [address] [place] [address], [place] [address] Jan, [facility] [address] [id number] [address] [place] [address], [place] [address] Jan, [facility] [address] [id number] [address] [place] [address], [place] [address] Jan, [facility] [address] [id number] [address] [place] [address], [place] [address] Jan, [facility] [address] [id number] [address] [place] [address], [place] [address] Jan, [facility] [address] [id number] [address] [place] [address], [place] [address] Dec, [facility] [address] [id number] [address] [place] [address], [place] [address] Dec, [facility] [address] [id number] [address] [place] [address], [place] [address] Nov, [facility] [address] [id number] [address] [place] [address], [place] [address] Nov, [facility] [address] [id number] [address] [place] [address], [place] [address] Nov, [facility] [address] [id number] [address] [place] [address], [place] [address] Nov, [facility] [address] [id number] [address] [place] [address], [place] [address] Nov, [facility] [address] [id number] [address] [place] [address], [place] [address] Nov, [facility] [address] [id number] [address] [place] [address], [place] [address] Sep, [facility] [address] [id number] [address] [place] [address], [place] [address] Sep, [facility] [address] [id number] [address] [place] [address], [place] [address] Sep, [facility] [address] [id number] [address] [place] [address], [place] [address] Sep, [facility] [address] [id number] [address] [place] [address], [place] [address] Aug, [facility] [address] [id number] [address] [place] [address], [place] [address] Aug, [facility] [address] [id number] [address] [place] [address], [place] [address] Jul, [facility] [address] [id number] [address] [place] [address], [place] [address] Jul, [facility] [address] [id number] [address] [place] [address], [place] [address] Jun, [facility] [address] [id number] [address] [place] [address], [place] [address] Jun, [facility] [address] [id number] [address] [place] [address], [place] [address] Jun, [facility] [address] [id number] [address] [place] [address], [place] [address] Jun, [facility] [address] [id number] [address] [place] [address], [place] [address] May, [facility] [address] [id number] [address] [place] [address], [place] [address] May, [facility] [address] [id number] [address] [place] [address], [place] [address] May, [facility] [address] [id number] [address] [place] [address], [place] [address] May, [facility] [address] [id number] [address] [place] [address], [place] [address] May, [facility] [address] [id number] [address] [place] [address], [place] [address] May, [facility] [address] [id number] [address] [place] [address], [place] [address] Apr, [facility] [address] [id number] [address] [place] [address], [place] [address] Apr, [facility] [address] [id number] [address] [place] [address], [place] [address] Apr, [facility] [address] [id number] [address] [place] [address], [place] [address] Apr, [facility] [address] [id number] [address] [place] [address], [place] [address] Mar, [facility] [address] [id number] [address] [place] [address], [place] [address] Mar, [facility] [address] [id number] [address] [place] [address], [place] [address] Mar, [facility] [address] [id number] [address] [place] [address], [place] [address] Mar, [facility] [address] [id number] [address] [place] [address], [place] [address] Feb, [facility] [address] [id number] [place] [id number] Jan, [facility] [address] [id number] [address] [place] [address], [place] [address] Jan, [facility] [address] [id number] [address] [place] [address], [place] [address] Dec, [facility] [address] [id number] [address] [place] [address], [place] [address] Dec, [facility] [address] [id number] [address] [place] [address] 10 Dec, 2012 [facility] [address] [id number] [id number] Dec, [facility] [address] [id number] [address] [place] [id number] 17 Nov, 2012 [facility] [address] [id number] [address] [place] [address] Nov, [facility] [address] [id number] [address] [place] [address] Nov, [facility] [address] [id number] [address] [place] [phone] Nov, [facility] [address] [id number] [address] [place] [phone] Nov, [facility] [address] [id number] [address] [place] [address] October, [facility] [address] [id number] [address] [place] [phone] October, [facility] [address] [id number] [address] [place] [phone] Aug, [facility] [address] [id number] [address] [place] [id number] Nov, IMMUNIZATIONS No Known Immunizations SOCIAL HISTORY Never Assessed REASON FOR VISIT PLAN OF CARE VITAL SIGNS Height 72 in 2014-08-29 Weight 449.25 lbs 2014-08-29 Temperature 98 degrees Fahrenheit 2014-08-29 Heart Rate 90 bpm 2014-08-29 Respiratory Rate 32 2014-08-29 Blood pressure systolic 134 mmHg 2014-08-29 Blood pressure diastolic 90 mmHg 2014-08-29 MEDICATIONS Unknown Medications RESULTS No Results PROCEDURES Procedure Date Ordered Result Body Site CARE COORDINATION August 29, 2014 INSTRUCTIONS MEDICATIONS ADMINISTERED No Known Medications MEDICAL (GENERAL) HISTORY Type Description Date Medical History sleep apnea Medical History hypertension Medical History 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 Medical History H yasmini- dx 12/2014 ANGUIANO Medical History Echo 05/2015- Stage II diast olic dysfunction, LV hypertrophy, EF 60% Medical History Major Depression- Prozac, We llbutrin, Trintellix, Celexa, Lexapro, Paxil, Effexor, Cymbalta, Abilify Medical History Insomnia Medical History chronic renal insufficiency Medical History Obsessive Compulsive Disorder with Perse veration Surgical History EGD- Esophagus stretching- 2014 Surgical History gastric sleeve 03/2016 Hospitalization History gastric sleeve Hospitalization History [facility] ER Trouble with left shoulder blade 08/2017
--- OUTSIDE RECORDS SUMMARY | 2019-11-29 09:18 | XMS REPORT ---
Author Author Curt DIAZ [facility] Address [address] [place] [address] Care Team Providers Care Computer Aided Design Drafter Name Role Phone JOE CHRIS Unavailable PROBLEMS Type Condition ICD9-CM Code FZN62-CL Code Onset Dates Condition S tatus SNOMED Code Problem Insomnia G47.00 Active 638207353 Problem Benign essential hypertension I10 Active 7344881 Problem Hyperlipemia E78.5 Active 7454652 4 Problem Edema R60.9 Active 891175250 Problem Morbid obesity E66.01 Active 11069 6002 Problem Severe episode of recurrent major depressive disorder, without psychotic features F33.2 Active 84752806 Problem Vitamin D deficiency E55.9 Active 73045148 Problem Mixed obsessional thoughts and acts F42.2 Active 39788263 Problem Chronic fatigue R53.82 Active 8422 9001 Problem Metabolic syndrome E88.81 Active 2 11719482 Problem Other chronic pain G89.29 Active 8 6493905 Problem Renal insufficiency N28.9 Active 272332498 Problem BMI 45.0-49.9, adult Z68.42 Active 100397276 Problem DANIELA (generalized anxiety disorder) F41.1 Active 60020729 Problem Sciatica, right side M54.31 Active [id number] Problem 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 [address] [facility] [id number] [place] [address] [id number] Jan, [facility] [address] [facility] [id number] [place] [phone] Dec, Severe episode of recurrent major depressive disorder, without psychotic features F33.2 [facility] [address] [facility] [id number] [place] [phone] Dec, DANIELA (generalized anxiety dis order) F41.1 ; Severe episode of recurrent major depressive disorder, without psychotic features F33.2 ; Mixed obsessional thoughts and acts F42.2 and 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 [facility] [address] [facility] [address] [id number][place] [id number] Dec, Morbid obesity E66.01 [facility] [address] [facility] [id number] [place] [phone] Dec, [facility] [address] [facility] [id number] [place] [phone] Dec, [address] [phone] Nov, [facility] [address] [facility] [id number] [id number] Nov, [facility] [address] [facility] [id number] [place] [phone] Nov, [facility] [address] [facility] [id number] [place] [phone] Nov, [facility] [address] [facility] [id number] [place] [address] Nov, DANIELA (generalized anxiety dis order) F41.1 ; Severe episode of recurrent major depressive disorder, without psychotic features F33.2 ; Mixed obsessional thoughts and acts F42.2 and 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 [facility] [address] [facility] [address] [id number], [place] [id number] October, Morbid obesity E66.01 [facility] [facility] [address] [id number], [place] [id number] October, Benign essential hypertension I10 and Mo rbid obesity E66.01 [facility] [address] [place] [address] [id number] [place] [address] [id number] October, [facility] [address] [place] [id number] [address] [place] [phone] October, Severe episode of recurrent major depressive disorder, without psychotic features F33.2 [facility] [id number] [place] [id number] October, Morbid obesity E66.01 [facility] [address]ender[address] [place] [id number] [place] [address] [id number] October, [facility] [address] [place] [id number] [address] [place] [phone] October, Severe episode of recurrent major depressive disorder, without psychotic features F33.2 ; DANIELA (generalized anxiety disorder) F41.1 ; Mixed obsessional thoughts and acts F42.2 and 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 [facility] Yulia[address] [place] [id number] [place] [address] [id number] October, Morbid obesity E66.01 [facility] [address] [facility] [id number] [address] [place] [address] [id number] Sep, Dental examination Z01.20 [facility] [id number] [place] [address] [id number] Sep, [facility] [address] [place] [id number] [address] [place] [phone] Sep, Sore in mouth K13.79 and Mor bid obesity E66.01 [facility] [address] [place] [id number] [address] [place] [address] Sep, Dental examination Z01.20 [facility] [address] [facility] [address] [id number] [address] [place] [address] Sep, Anxiety disorder, unspecifie d F41.9 [facility] [id number], [place] [id number] Sep, Mouth ulcer K12.[address] [id number], [place] [id number] Sep, Morbid obesity E66.01 [facility] [id number], [place] [id number] Sep, Allergic rhinitis, unspecified seasonali ty, unspecified trigger J30.9 and Shortness of breath R06.02 [facility] [id number], [place] [id number] Sep, 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 [facility] [place] [address] [id number], [place] [id number] Aug, Mouth abscess K12.2 ; Mouth ulcer K12.1 ; Bloating R14.0 and Morbid obesity E66.01 [facility] [place] [address] [id number], [place] [id number] Aug, [facility] [id number], [place] [id number] Aug, [facility] [place] [address] [id number], [place] [id number] Jul, Major depressive disorder, recurrent, mo derate F33.1 ; Abscess of arm, left L02.414 ; BMI 45.0-49.9, adult Z68.42 and Morbid obesity E66.01 [facility] [place] [address] [id number], [place] [id number] Jul, [facility] [id number], [place] [id number] Jul, [facility] [place] [address] [id number], [place] [id number] Jun, Pain in right knee M25.561 and Other chr onic pain G89.29 [facility] [place] [address] [id number], [place] [id number] Jun, Benign essential hypertension I10 ; BMI 45.0-49.9, adult Z68.42 ; Morbid obesity E66.01 ; Vitamin D deficiency E55.9 ; Insomnia G47.00 ; 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 ; Edema R60.9 ; Recurrent major depressive disorder, in partial remission F33.41 ; Chronic fatigue R53.82 ; Acute pain of right knee M25.561 ; Metabolic syndrome E88.81 and Irritable mood R45.4 [facility] [address] [facility] [id number] [place] [phone] Jun, [facility] [address] [facility] [address] [id number], [place] [id number] Jun, Irritable mood R45.4 [facility] [address] [facility] [id number] [place] [address] May, [facility] [address] [facility] [id number] [place] [address] May, [facility] [address] [facility] [id number] [place] [phone] May, Recurrent major depressive d isorder, in partial remission F33.41 ; Mixed obsessional thoughts and acts F42.2 ; 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 and BMI 45.0-49.9, adult Z68.42 [facility] [address] [facility] [id number] [place] [phone] Apr, [facility] [address] [facility] [id number] [place] [address] Apr, [facility] [address] [facility] [id number] [place] [phone] Apr, [facility] [address] [facility] [id number] [place] [phone] Apr, [place] [address] [facility] [id number] [place] [phone] Mar, Mixed obsessional thoughts a nd acts F42.2 ; Recurrent major depressive disorder, in partial remission F33.41 ; DANIELA (generalized anxiety disorder) F41.1 and BMI 45.0-49.9, adult Z68.42 [facility] [address] [id number], [place] [id number] Mar, [facility] [address] [id number], [place] [id number] Mar, BMI 45.0-49.9, adult Z68.42 ; Instabilit y of right knee joint M25.361 and Rash R21 [place] [address] [facility] [id number] [place] [phone] Jan, Recurrent major depressive d isorder, in partial remission F33.41 ; Mixed obsessional thoughts and acts F42.2 and BMI 45.0-49.9, adult Z68.42 [facility] [address] [address] [id number], [place] [id number] Jan, [facility] [address] [id number], [place] [id number] Jan, Benign essential hypertension I10 ; BMI 45.0-49.9, adult Z68.42 ; Metabolic syndrome E88.81 and Allergic rhinitis, unspecified seasonality, unspecified trigger J30.9 [place] [address] [facility] [id number] [place] [phone] Dec, DANIELA (generalized anxiety dis order) F41.1 and Depressive disorder, not elsewhere classified F32.9 [facility] [address] [id number], [place] [id number] Dec, Recurrent major depressive disorder, in partial remission F33.41 [facility] [address] [id number], [place] [id number] Dec, [facility] [address] [id number], [place] [id number] Nov, [facility] [address] [id number], [place] [id number] Nov, Recurrent major depressive disorder, in partial remission F33.41 [facility] [address] [facility] [id number] [place] [phone] Nov, Recurrent major depressive d isorder, in partial remission F33.41 ; Mixed obsessional thoughts and acts F42.2 ; DANIELA (generalized anxiety disorder) F41.1 and BMI 45.0-49.9, adult Z68.42 [facility] [address] [id number], [place] [id number] Nov, [facility] [address] [id number], [place] [id number] Nov, Other conjunctivitis of both eyes H10.89 and Sciatica, right side M54.31 [facility] [address] [id number], [place] [id number] Nov, [facility] [address] [id number], [place] [id number] Nov, [facility] [address] [id number], [place] [id number] October, [facility] [address] [id number], [place] [id number] October, [facility] [address] [facility] [id number] [place] [address] October, BMI 45.0-49.9, adult Z68.42 ; Mixed obsessional thoughts and acts F42.2 ; Recurrent major depressive disorder, in partial remission F33.41 and DANIELA (generalized anxiety disorder) F41.[address] [facility] [address] [id number], [place] [id number] October, Benign essential hypertension I10 ; Morb id obesity E66.01 and BMI 45.0-49.9, adult Z68.[address] [facility] [address] [id number], [place] [id number] Sep, [facility] [id number], [place] [id number] Sep, [facility] [id number], [place] [id number] Sep, [address] [id number], [place] [id number] Sep, Hospital discharge follow-up Z09 ; Aller gic rhinitis, unspecified seasonality, unspecified trigger J30.9 and Shortness of breath R06.[address] [id number], [place] [id number] Sep, Recurrent major depressive disorder, in partial remission F33.[address] [id number], [place] [id number] Aug, Irritable mood R45.4 [place] [address] [place] [address] Aug, [address] [id number], [place] [id number] Jul, Benign essential hypertension I10 ; Robert a R60.9 and Impacted cerumen of left ear H61.22 [place] [address] [place] [address] Jul, Major depression F32.9 ; Rec urrent major depressive disorder, in partial remission F33.41 and Anxiety F41.9 [place] [address] [place] [id number] [address] [place] [phone] Jun, Major depression F32.9 ; Rec urrent major depressive disorder, in partial remission F33.41 and Anxiety F41.[address] [id number], [place] [id number] Jun, Major depression F32.9 ; Morbid obesity E66.01 ; Irritable mood R45.4 ; Hand weakness R29.898 and Vitamin D deficiency E55.9 [facility] [address] [id number], [place] [id number] Jun, [facility] [address] [id number], [place] [id number] May, Major depression F32.9 [facility] [address] [facility] [id number] [place] [address] May, Major depression F32.9 [facility] [address] [id number], [place] [id number] May, BMI 50.0-59.9, adult Z68.43 ; Major depr ession F32.9 ; Anxiety F41.9 ; Hypertrophic toenail L60.2 and Pain of left great toe M79.675 [facility] [address] [id number], [place] [id number] May, Recurrent major depressive disorder, in partial remission F33.41 [facility] [address] [place] [id number] [address] [place] [phone] Apr, [facility] [address] [id number], [place] [id number] Apr, [facility] [address] [facility] [id number] [place] [address] Apr, Major depression F32.9 [facility] [address] [id number], [place] [id number] Apr, Severe episode of recurrent major depres sive disorder, without psychotic features F33.2 ; Anxiety F41.[address] [facility] [address] [id number], [place] [id number] Apr, [facility] [address] [facility] [id number] [place] [address] Apr, [facility] [address] [id number], [place] [id number] Apr, [facility] [address] [id number], [place] [id number] Mar, [facility] [address] [id number], [place] [id number] Mar, Allergic conjunctivitis of both eyes H10 .13 [facility] [address] [facility] [id number] [place] [address] Mar, Major depression F32.9 [facility] [address] [id number], [place] [id number] Mar, Metabolic syndrome E88.81 ; History of g astric bypass Z98.890 ; Benign essential hypertension I10 ; Allergic conjunctivitis of both eyes H10.13 and Morbid obesity E66.01 [facility] [address] [facility] [id number] [place] [phone] Mar, Major depression F32.9 [facility] [address] [facility] [address] [id number], [place] [id number] Feb, [facility] [address] [facility] [id number] [place] [address] Feb, Major depression F32.9 [facility] [address] [facility] [address] [id number], [place] [id number] Feb, Subacute maxillary sinusitis J01.00 and Bronchitis J40 [place] [address] [facility] [id number] [place] [address] Feb, Major depressive disorder, r ecurrent, moderate F33.1 [facility] [address] [id number], [place] [id number] Jan, [facility] [address] [id number], [place] [id number] Jan, Acute non-recurrent maxillary sinusitis J01.00 and Skin tag L91.8 [facility] [address] [id number], [place] 857505515 Jan, Cough R05 and Sinus congestion R09.81 [facility] [address] [id number], [place] [id number] Jan, [facility] [address] [id number], [place] [id number] Jan, Benign essential hypertension I10 ; Hist ory of gastric bypass Z98.890 and Nausea and vomiting in adult R11.2 [facility] [address] [facility] [id number] [place] [phone] 04 Jan, 2017 Major depressive disorder, r ecurrent, moderate F33.1 [place] [address] [facility] [id number] [place] [address] Dec, Insomnia G47.00 ; Recurrent major depressive disorder, in partial remission F33.41 and Morbid obesity E66.01 [facility] [address] [facility] [address] [id number], [place] [id number] Dec, [facility] [address] [place] [address] [id number] [place] [address] [id number] Dec, Chronic bacterial conjunctivitis of left eye H10.402 [facility] [address] [place] [address] [address] [id number], [place] [id number] Nov, [facility] [place] [address] [place] [address] A[address] [id number], [place] [id number] Nov, Dental examination Z01.20 [facility] [address] [id number], [place] [id number] Nov, Benign essential hypertension I10 ; Hist ory of gastric bypass Z98.890 and Nausea and vomiting in adult R11.2 [facility] [address] [facility] [id number] [place] [phone] 13 Nov, 2016 Major depressive disorder, r ecurrent, moderate F33.1 ; Generalized anxiety disorder F41.1 and Insomnia due to other mental disorder F51.05 [place] [address] [facility] [id number] [place] [address] 12 Nov, 2016 Recurrent major depressive d isorder, in partial remission F33.41 ; Insomnia G47.00 and Morbid obesity E66.01 [facility] [address] [id number] K[place]ha ESCOBEDO S [id number] October, Abscess of left arm L02.414 [place] [address] [facility] [id number] [place] [address] October, Morbid obesity E66.01 ; Lida r depression F32.9 and Recurrent major depressive disorder, in partial remission F33.[address] [place] [address] [id number], [place] 469809786 Sep, Benign essential hypertension I10 ; Morb id obesity E66.01 ; S/P gastric bypass Z98.84 ; Abscess L02.91 and Chronic bacterial conjunctivitis of left eye H10.[address] [id number], [place] [id number] Sep, Dental examination Z01.20 [place] [address] [place] [address] Sep, Morbid obesity E66.01 ; Lida r depression F32.9 and Recurrent major depressive disorder, in partial remission F33.41 [place] [address] [place] [address] Jul, [place] [address] [place] [id number] [place] [address] Jul, Major depressive disorder, r ecurrent, moderate F33.1 [place] [address] [place] [id number] [place] [phone] Jul, Major depressive disorder, r ecurrent, moderate F33.1 and Generalized anxiety disorder F41.[address] [place] [address] [id number], [place] [id number] Jul, Cough R05 [place] [address] [place] [id number] [place] [phone] 16 Jul, 2016 Morbid obesity E66.01 ; Lida r depression F32.9 and Recurrent major depressive disorder, in partial remission F33.[address] [facility] [address] [id number], [place] [id number] Jul, [facility] [address] [id number] [id number] Jul, [facility] [address] [id number] [id number] Jul, Gastroenteritis K52.9 and Cough R05 [facility] [id number] [place] [id number] Jun, Acute bacterial conjunctivitis of left e ye H10.32 [place] [address] [address] [facility] [id number] [place] [id number] Jun, [place] [address] [address] [place] [id number] [address] [place] [id number] Jun, Recurrent major depressive d isorder, in partial remission F33.41 [place] [address] [place] [id number] [address] [place] [phone] May, Major depression F32.9 and M orbid obesity E66.01 [place] [address] [address] [facility] [id number] [place] [phone] May, [facility] [id number] [place] [id number] May, Thrush B37.0 [facility] [address] [place] [id number] [address] [place] [phone] Apr, Major depressive disorder, r ecurrent, moderate F33.1 [facility] [address] [facility] [id number] [place] [phone] Apr, Insomnia G47.00 ; Major depr ession F32.9 and Recurrent major depressive disorder, in partial remission F33.41 [facility] [address] [facility] [id number] [place] [phone] Apr, [facility] [address] [facility] [id number] [place] [id number] Apr, Major depression F32.9 and R ecurrent major depressive disorder, in partial remission F33.[address] [id number][place] [id number] Mar, Benign essential hypertension I10 ; Morb id obesity E66.01 ; Impacted cerumen of both ears H61.23 ; Laceration of finger of right hand, initial encounter S61.219A and Encounter for immunization Z23 [facility] [address] [facility] [id number] [place] [address] Mar, [facility] [address] [facility] [id number] [place] [address] Mar, [facility] [address] [facility] [id number] [place] [address] Mar, [id number] [place] [address] [id number] Feb, Nausea R11.0 ; Blood in the stool K92.1 and Benign essential hypertension I10 [facility] [address] [facility] [id number] [place] [address] Feb, Major depression F32.9 and R ecurrent major depressive disorder, in partial remission F33.41 [address] [address] [facility] [address] [id number], [place] [id number] Feb, [address] [id number], [place] [id number] Feb, Recurrent major depressive disorder, in partial remission F33.[address] [id number][place] [id number] Jan, [address] [id number], [place] [id number] Jan, Benign essential hypertension I10 ; Robert a R60.9 and Hyperlipidemia, unspecified hyperlipidemia type E78.[address] [id number], [place] [id number] Jan, Recurrent major depressive disorder, in partial remission F33.41 [facility] [address] [id number] Kiesha ESCOBEDO S [id number] Jan, [facility] [address] [id number], [place] [id number] Jan, [facility] [address] [id number][place] [id number] Jan, [facility] [address] [facility] [id number] [place] [address] Jan, [facility] [address] [facility] [id number] [place] [address] Dec, [facility] [address] [facility] [id number] [place] [address] Nov, [facility] [address] [facility] [id number] [place] [address] Nov, Major depression F32.9 [facility] [address] [facility] [id number] [place] [address] Nov, [facility] [address] [facility] [id number] [place] [address] Nov, [facility] [address] [facility] [id number] [place] [address] Nov, Major depressive disorder, r ecurrent episode, mild F33.0 and Anxiety F41.9 [facility] [address] [id number][place] [id number] Nov, [facility] [address] [id number], [place] [id number] October, Left elbow pain M25.522 and Other season al allergic rhinitis J30.[address] [facility] [address] [id number], [place] [id number] October, [facility] [address] [facility] [id number] [place] [address] October, Major depressive disorder, r ecurrent, moderate F33.1 [facility] [address] [facility] [id number] [place] [address] October, Major depression F32.9 [facility] [address] [facility] [id number] [place] [address] Sep, [place] or callus L84 and Onych omycosis B35.1 [facility] [address] [facility] [id number] [place] [address] Sep, Major depressive disorder, r ecurrent, moderate F33.1 [facility] [address] [facility] [id number] [place] [address] Sep, Major depression F32.9 [facility] [address] [facility] [id number] [place] [address] Sep, Moderate episode of recurren t major depressive disorder F33.[address] [facility] [address] [id number], [place] [id number] Sep, Muscle strain T14.8 [facility] [address] [facility] [id number] [place] [address] Aug, Major depression F32.9 [facility] [address] [facility] [id number] [place] [address] Aug, Major depression F32.9 [facility] [address] [facility] [id number] [place] [address] Jul, Morbid obesity E66.01 and Ma cora depression F32.9 [facility] [address] [facility] [id number] [place] [address] Jul, Depression, major, recurrent , moderate F33.1 [facility] [id number] [place] [address] [id number] Jul, [facility] [address] [facility] [id number] [place] [address] Jul, [facility] [address] [facility] [id number] [place] [address] 16 Jul, 2015 Major depression F32.9 and M orbid obesity E66.[address] [id number], [place] [id number] 11 Jul, 2015 Type II diabetes mellitus E11.9 ; Callus of foot L84 ; Benign essential hypertension I10 and Renal insufficiency N28.9 [place] [address] [place] [id number] [address] [place] [address] 09 Jul, 2015 Depression, major, recurrent , moderate F33.1 [place] [address] [facility] [id number] [place] [address] Jul, Major depression F32.9 [place] [address] [place] [id number] [address] [place] [address] Jul, [place] [id number] [place] [address] Jun, Major depression F32.9 [place] [address] [facility] [id number] [place] [address] Jun, Major depressive disorder, r ecurrent, moderate F33.1 [place] [address] [place] [id number] [address] [place] [address] Jun, [place] [address] [place] [id number] [address] [place] [address] Jun, Major depressive disorder, r ecurrent, moderate F33.1 and Major depression F32.[address] [id number], [place] [id number] Jun, Type II diabetes mellitus E11.9 [place] [address] [facility] [id number] [place] [address] Jun, Depression, major, recurrent , moderate F33.1 [place] [address] [facility] [id number] [place] [address] May, Major depressive disorder, r ecurrent, moderate F33.1 [facility] [address] [facility] [id number] [place] [address] May, [id number] [place] [address] [id number] May, Edema R60.9 [facility] [address] [facility] [id number] [place] [address] May, Insomnia G47.00 and Major de pression F32.[id number] [place] [address] [id number] May, Morbid obesity E66.01 ; Edema R60.9 ; Sh ortness of breath R06.02 ; Benign essential hypertension I10 and Renal insufficiency N28.[id number] [place] [address] [id number] May, Hyperlipemia 272.4 and Renal insufficien cy N28.9 [place] [address] [facility] [id number] [place] [address] Apr, Major depression F32.9 [place] [address] [place] [id number] [address] [place] [address] Apr, [place] [address] [place] [id number] [address] [place] [address] Apr, Major depressive disorder, r ecurrent, moderate F33.[id number] [place] [address] [id number] Apr, Type II diabetes mellitus E11.9 ; Benign essential hypertension I10 ; Edema R60.9 and Renal insufficiency N28.9 [place] [address] [facility] [id number] [place] [address] Mar, Major depressive disorder, r ecurrent, moderate F33.1 [place] [address] [facility] [id number] [place] [address] Mar, [facility] [address] [facility] [id number] [place] [address] Mar, Major depression F32.[id number] [place] [address] [id number] Mar, Morbid obesity E66.01 ; Benign essential hypertension I10 and Type II diabetes mellitus E11.9 [place] [address] [facility] [id number] [place] [address] Feb, Major depressive disorder, r ecurrent, moderate F33.1 [place] [address] [place] [id number] [address] [place] [address] Feb, Major depressive disorder, r ecurrent episode, in partial or unspecified remission 296.35 ; Anxiety state, unspecified 300.00 and Morbid obesity 278.01 [place] [address] [facility] [id number] [place] [address] Feb, [id number] [place] [address] [id number] 16 Feb, 2015 Vomiting 787.03 and Viral syndrome 079.9 9 [place] [address] [facility] [id number] [place] [address] 15 Feb, 2015 Major depression, recurrent 296.30 ; Generalized anxiety disorder 300.02 and No condition on Pearcy II V71.[id number] [place] [address] [id number] 03 Feb, 2015 Skin tag 701.[address] [id number] [address] [place] [address] Feb, [place] [address] [facility] [id number] [place] [address] Jan, Depression, major, recurrent , moderate 296.[id number] [place] [address] [id number] Jan, Nausea and vomiting 787.01 ; Rib pain on right side 786.50 and Fall on or from sidewalk curb E880.1 [place] [address] [facility] [id number] [place] [address] Jan, [facility] [address] [facility] [id number] [place] [address] Jan, Major depressive disorder, r ecurrent episode, in partial or unspecified remission 296.35 and Anxiety state, unspecified 300.00 [facility] [address] [place] [address] AVE [id number], [place] [id number] Jan, [facility] [address] [place], [place] [id number] [address] [place] [address] Jan, Depression, major, recurrent , moderate 296.[address] [address] Jan, Major depression, recurrent 296.30 ; No condition on Pearcy II V71.09 and No condition on axis III V71.09 [facility] [address] [place], [place] [address] [id number], [place] [id number] Jan, Drug-induced nausea and vomiting 787.01 [place] [id number] [place] [address] Jan, Depression, major, recurrent , moderate 296.32 [place] [id number] [address] [place] [address] Dec, Depression, major, recurrent , moderate 296.32 [facility] [address] [place], [place] [address] [id number], [place] [id number] Dec, Morbid obesity 278.01 ; Metabolic syndro me 277.7 ; Hyperlipemia 272.4 ; Benign essential hypertension 401.1 ; Dietary counseling V65.3 ; Exercise counseling V65.41 and Inflamed skin tag 701.9 [place] [id number] [address] [place] [address] Dec, Depression, major, recurrent , moderate 296.32 [place] [id number] [address] [place] [address] Dec, [address] [place] [address] Dec, Major depression, recurrent 296.30 ; Anxiety, generalized 300.02 and No condition on Pearcy II V71.09 [place] [address] [place] [address] Dec, Depression, major, recurrent , moderate 296.32 [place] [address] [place] [address] Dec, Major depressive disorder, r ecurrent episode, moderate 296.32 [place] [address] [place] [address] Dec, Depression, major, recurrent , moderate 296.32 [place] [address] [place] [address] Dec, Depression, major, recurrent , moderate 296.32 [place] [address] [place] [address] Dec, Depression, major, recurrent , moderate 296.32 [place] [address] [address] Dec, Depression, major, recurrent , moderate 296.32 [place] [address] [address] Nov, Depression, major, recurrent , moderate 296.32 [place] [address] [address] Nov, Major depression 296.20 ; So cial phobia 300.23 and No condition on Pearcy II V71.09 [place] [address] [place] [id number] Nov, Depression, major, recurrent , moderate 296.32 [place] [address] [place] [id number] Nov, Major depressive disorder, r ecurrent episode, moderate 296.32 and Generalized anxiety disorder 300.02 [place] [address] [place] [id number] [place] [address] 09 Nov, 2014 Depression, major, recurrent , moderate 296.32 [facility] [address] [id number] [address] [place] [address] 04 Nov, 2014 Depression, major, recurrent , moderate 296.32 [facility] [address] [facility] [id number] [place] [address] October, Generalized anxiety disorder 300.02 ; No condition on Pearcy II V71.09 and Major depressive disorder, recurrent 296.30 [facility] [address] [id number] [address] [place] [address] Sep, [facility] [address] [id number] [address] [place] [address] Sep, [facility] [address] [id number] [address] [place] [address] Aug, [facility] [address] [id number] [address] [place] [address] 24 Aug, 2014 [facility] [address] [id number] [address] [place] [address] Aug, [facility] [address] [id number] [address] [place] [address] Aug, [facility] [address] [id number] [address] [place] [address] Aug, [facility] [address] [id number] [address] [place] [address] Aug, [facility] [address] [id number] [address] [place] [address] Aug, [facility] [address] [id number] [address] [place] [address] Aug, [facility] [address] [id number] [address] [place] [address] Aug, [facility] [address] [id number] [address] [place] [address] 13 Aug, 2014 [facility] [address] [id number] [address] [place] [address], [place] [address] 13 Aug, 2014 [facility] [address] [id number] [address] [place] [address], [place] [address] 13 Aug, 2014 [facility] [address] [id number] [address] [place] [address], [place] [address] Aug, [facility] [address] [id number] [address] [place] [address], [place] [address] Aug, [facility] [address] [id number] [address] [place] [address], [place] [address] Aug, [facility] [address] [id number] [address] [place] [address], [place] [address] Aug, [facility] [address] [id number] [address] [place] [address], [place] [address] Aug, [facility] [address] [id number] [address] [place] [address], [place] [address] Aug, [facility] [address] [id number] [address] [place] [address], [place] [address] Jul, [facility] [address] [id number] [address] [place] [address], [place] [address] Jul, [facility] [address] [id number] [address] [place] [address], [place] [address] Jul, 2014 [facility] [address] [id number] [address] [place] [address], [place] [address] Jul, 2014 [facility] [address] [id number] [address] [place] [address], [place] [address] Jul, [facility] [address] [id number] [address] [place] [address], [place] [address] Jul, 2014 [facility] [address] [id number] [address] [place] [address], [place] [address] Jun, [facility] [address] [id number] [address] [place] [address], [place] [address] Jun, [facility] [address] [id number] [address] [place] [address], [place] [address] Jun, [facility] [address] [id number] [address] [place] [address], [place] [address] Jun, [facility] [address] [id number] [address] [place] [address], [place] [address] Jun, [facility] [address] [id number] [address] [place] [address], [place] [address] Jun, [facility] [address] [id number] [address] [place] [address], [place] [address] Jun, [facility] [address] [id number] [address] [place] [address], [place] [address] Jun, [facility] [address] [id number] [address] [place] [address], [place] [address] Jun, [facility] [address] [id number] [address] [place] [address], [place] [address] Jun, [facility] [address] [id number] [address] [place] [address], [place] [address] Jun, [facility] [address] [id number] [address] [place] [address], [place] [address] Jun, [facility] [id number] [place] [id number] Jun, [facility] [address] [id number] [address] [place] [address], [place] [address] Jun, [facility] [address] [id number] [address] [place] [address], [place] [address] Jun, [facility] [address] [id number] [address] [place] [address], [place] [address] Jun, [facility] [address] [id number] [address] [place] [address] May, [facility] [address] [id number] [address] [place] [address], [place] [address] May, [facility] [address] [id number] [address] [place] [address], [place] [address] May, [facility] [address] [id number] [address] [place] [address], [place] [address] May, [facility] [address] [id number] [address] [place] [address], [place] [address] Apr, [facility] [address] [id number] [address] [place] [address], [place] [address] Apr, [facility] [address] [id number] [address] [place] [address], [place] [address] Apr, [facility] [address] [id number] [address] [place] [address], [place] [address] Apr, [facility] [address] [id number] [address] [place] [address] Apr, [facility] [address] [id number] [address] [place] [address], [place] [address] Apr, [facility] [address] [id number] [address] [place] [address], [place] [address] Apr, [facility] [address] [id number] [address] [place] [address] Apr, [facility] [address] [id number] [address] [place] [address] Apr, [facility] [address] [id number] [address] [place] [address], [place] [address] Apr, [facility] [address] [id number] [address] [place] [address] Apr, [facility] [address] [id number] [address] [place] [address] Apr, [facility] [address] [id number] [address] [place] [address], [place] [address] Apr, [facility] [address] [id number] [address] [place] [address], [place] [address] Apr, [facility] [address] [id number] [address] [place] [address], [place] [address] Apr, [facility] [address] [id number] [address] [place] [address], [place] [address] Apr, [facility] [address] [id number] [address] [place] [address], [place] [address] Apr, [facility] [address] [id number] [address] [place] [address], [place] [address] Apr, [facility] [address] [id number] [address] [place] [address], [place] [address] Apr, [facility] [address] [id number] [address] [place] [address], [place] [address] Apr, [facility] [address] [id number] [address] [place] [address], [place] [address] Mar, [facility] [address] [id number] [address] [place] [address], [place] [address] Mar, [facility] [address] [id number] [address] [place] [address], [place] [address] Mar, [facility] [address] [id number] [address] [place] [address], [place] [address] Mar, [facility] [address] [id number] [address] [place] [address], [place] [address] Mar, [facility] [address] [id number] [address] [place] [address], [place] [address] Mar, [facility] [address] [id number] [address] [place] [address], [place] [address] Mar, [facility] [address] [id number] [address] [place] [address], [place] [address] Mar, [facility] [address] [id number] [address] [place] [address], [place] [address] Mar, [facility] [address] [id number] [address] [place] [address], [place] [address] Mar, [facility] [address] [id number] [address] [place] [address], [place] [address] Feb, [facility] [address] [id number] [address] [place] [address], [place] [address] Feb, [facility] [address] [id number] [address] [place] [address], [place] [address] Feb, [facility] [address] [id number] [address] [place] [address], [place] [address] Feb, [facility] [address] [id number] [address] [place] [address], [place] [address] Jan, [facility] [address] [id number] [address] [place] [address], [place] [address] Jan, [facility] [address] [id number] [address] [place] [address], [place] [address] Jan, [facility] [address] [id number] [address] [place] [address], [place] [address] Jan, [facility] [address] [id number] [address] [place] [address], [place] [address] Jan, [facility] [address] [id number] [address] [place] [address], [place] [address] Jan, [facility] [address] [id number] [address] [place] [address], [place] [address] Dec, [facility] [address] [id number] [address] [place] [address], [place] [address] Dec, [facility] [address] [id number] [address] [place] [address], [place] [address] Nov, [facility] [address] [id number] [address] [place] [address], [place] [address] Nov, [facility] [address] [id number] [facility] [address] Nov, [facility] [address] [id number] [address] [place] [address], [place] [address] Nov, [facility] [address] [id number] [address] [place] [address], [place] [address] Nov, [facility] [address] [id number] [address] [place] [address], [place] [address] Nov, [facility] [address] [id number] [address] [place] [address], [place] [address] Sep, [facility] [address] [id number] [address] [place] [address], [place] [address] Sep, [facility] [address] [id number] [address] [place] [address], [place] [address] Sep, [facility] [address] [id number] [address] [place] [address], [place] [address] Sep, [facility] [address] [id number] [address] [place] [address], [place] [address] Aug, [facility] [address] [id number] [address] [place] [address], [place] [address] Aug, [facility] [address] [id number] [address] [place] [address], [place] [address] Jul, [facility] [address] [id number] [address] [place] [address], [place] [address] Jul, [facility] [address] [id number] [address] [place] [address], [place] [address] Jun, [facility] [address] [id number] [address] [place] [address], [place] [address] Jun, [facility] [address] [id number] [address] [place] [address], [place] [address] Jun, [facility] [address] [id number] [address] [place] [address], [place] [address] 16 Jun, 2013 [facility] [address] [id number] [address] [place] [address], [place] [address] May, [facility] [address] [id number] [address] [place] [address], [place] [address] May, [facility] [address] [id number] [address] [place] [address], [place] [address] May, [facility] [address] [id number] [address] [place] [address], [place] [address] May, [facility] [address] [id number] [address] [place] [address], [place] [address] May, [facility] [address] [id number] [address] [place] [address], [place] [address] May, [facility] [address] [id number] [address] [place] [address], [place] [address] Apr, [facility] [address] [id number] [address] [place] [address], [place] [address] Apr, [facility] [address] [id number] [address] [place] [address], [place] [address] Apr, [facility] [address] [id number] [address] [place] [address], [place] [address] Apr, [facility] [address] [id number] [address] [place] [address], [place] [address] Mar, [facility] [address] [id number] [address] [place] [address], [place] [address] Mar, [facility] [address] [id number] [address] [place] [address], [place] [address] Mar, [facility] [address] [id number] [address] [place] [address], [place] [address] Mar, [facility] [address] [id number] [address] [place] [address], [place] [address] Feb, [facility] [address] [id number] [id number] Jan, [facility] [address] [id number] [address] [place] [id number] Jan, [facility] [address] [id number] [address] [place] [id number] Dec, [facility] [address] [id number] [address] [place] [id number] Dec, [facility] [address] [id number] [address] [place] [phone] Dec, [facility] [address] [id number] [place] [id number] Dec, [facility] [address] [id number] [address] [place] [id number] Nov, [facility] [address] [id number] [address] [place] [id number] Nov, [facility] [address] [id number] [address] [place] [id number] Nov, [facility] [address] [id number] [address] [place] [phone] Nov, [facility] [address] [id number] [address] [place] [id number] Nov, [facility] [address] [id number] [address] [place] [id number] October, [facility] [address] [id number] [address] [place] [id number] October, [facility] [address] [id number] [address] [place] [phone] Aug, [facility] [address] [id number] [address] [place] [id number] 13 Nov, 2011 IMMUNIZATIONS No Known Immunizations [...] 03/2016 Hospitalization History gastric sleeve Hospitalization History [facility] Trouble with left shoulder blade 08/2017
--- OUTSIDE RECORDS SUMMARY | 2019-11-29 09:19 | XMS REPORT ---
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 Name Role Phone Migration, Doctor Unavailable Unavailable PROBLEMS Type Condition ICD9-CM Code JZI03-[place] Code Onset Dates Condition S tatus SNOMED Code Problem Insomnia G47.00 Active 201562217 Problem Benign essential hypertension I10 Active 1282430 Problem Hyperlipemia E78.5 Active 1519470 4 Problem Edema R60.9 Active 551522345 Problem Morbid obesity E66.01 Active 38106 6002 Problem Severe episode of recurrent major depressive disorder, without psychotic features F33.2 Active 61855909 Problem Vitamin D deficiency E55.9 Active 79545061 Problem Mixed obsessional thoughts and acts F42.2 Active 40978007 Problem Chronic fatigue R53.82 Active 8422 9001 Problem Metabolic syndrome E88.81 Active 2 54448431 Problem Other chronic pain G89.29 Active 8 1520534 Problem Renal insufficiency N28.9 Active 426928143 Problem BMI 45.0-49.9, adult Z68.42 Active 654160458 Problem DANIELA (generalized anxiety disorder) F41.1 Active 58775106 Problem Sciatica, right side M54.31 Active [id number] Problem 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 [id number] [place] [address] [id number] Nov, [facility] [address] [facility] [id number] [address] [place] [phone] Nov, [facility] [address] [facility] [id number] [address] [place] [phone] Nov, [facility] [address] [facility] [id number] [address] [place] [phone] Nov, DANIELA (generalized anxiety dis order) F41.1 ; Severe episode of recurrent major depressive disorder, without psychotic features F33.2 ; Mixed obsessional thoughts and acts F42.2 and 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 [facility] [address] [id number] [place] [id number] Nov, Morbid obesity E66.01 [facility] [address] [facility] [id number] [address] [place] [phone] Nov, [facility] [address] [place] [id number] [address] [place] [phone] Nov, DANIELA (generalized anxiety dis order) F41.1 ; Mixed obsessional thoughts and acts F42.2 ; Severe episode of recurrent major depressive disorder, without psychotic features F33.2 and 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 [facility] [address] [address] [facility] [address] [id number] [place] [id number] October, Morbid obesity E66.01 [facility] [address] [id number] [place] [id number] October, Benign essential hypertension I10 and Mo rbid obesity E66.01 [facility] [address] [id number] [place] [id number] October, [facility] [address] [facility] [id number] [address] [place] [phone] October, Severe episode of recurrent major depressive disorder, without psychotic features F33.2 [facility] [address] [id number] [place] [id number] October, Morbid obesity E66.01 [facility] [address] [id number] [place] [id number] October, [facility] [address] [id number] [address] [place] [phone] October, Severe episode of recurrent major depressive disorder, without psychotic features F33.2 ; DANIELA (generalized anxiety disorder) F41.1 ; Mixed obsessional thoughts and acts F42.2 and Dependent personality disorder F60.[address] [id number] [place] [id number] October, Morbid obesity E66.01 [facility] [address] [id number] [address] [place] [address] [id number] Sep, Dental examination Z01.[address] [id number] [place] [address] [id number] Sep, [facility] [address] [id number] [address] [place] [phone] Sep, Sore in mouth K13.79 and Mor bid obesity E66.01 [facility] [address] [place] [id number] [address] [place] [phone] Sep, Dental examination Z01.20 [facility] [address] [place] [phone] Sep, Anxiety disorder, unspecifie d F41.[address] [id number] [place] [id number] Sep, Mouth ulcer K12.[address] [id number] [place] [id number] Sep, Morbid obesity E66.[address] [id number] [place] [id number] Sep, Allergic rhinitis, unspecified seasonali ty, unspecified trigger J30.9 and Shortness of breath R06.[address] [id number] [place] [id number] Sep, 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 [id number] [place] [id number] Aug, Mouth abscess K12.2 ; Mouth ulcer K12.1 ; Bloating R14.0 and Morbid obesity E66.01 [facility] Jama [facility] [address] [id number] [place] [id number] Aug, [facility] [address] [id number] [place] [id number] Aug, [facility] [address] [place] [address] AVE [id number] [place] [id number] Jul, Major depressive disorder, recurrent, mo derate F33.1 ; Abscess of arm, left L02.414 ; BMI 45.0-49.9, adult Z68.42 and Morbid obesity E66.01 [facility] [address] [place] [address] AVE [id number] [place] [id number] Jul, [facility] [address] [place] [address] AVE [id number] [place] [id number] Jul, [facility] [address] [place] [address] AVE [id number] [place] [id number] Jun, Pain in right knee M25.561 and Other chr onic pain G89.29 [facility] [address] [place] [address] AVE [id number] [place] [id number] Jun, Benign essential hypertension I10 ; BMI 45.0-49.9, adult Z68.42 ; Morbid obesity E66.01 ; Vitamin D deficiency E55.9 ; Insomnia G47.00 ; 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 ; Edema R60.9 ; Recurrent major depressive disorder, in partial remission F33.41 ; Chronic fatigue R53.82 ; Acute pain of right knee M25.561 ; Metabolic syndrome E88.81 and Irritable mood R45.4 [facility] [address] [facility] [id number] [address] [place] [phone] Jun, [facility] [address] [id number] [place] [id number] Jun, Irritable mood R45.4 [facility] [address] [facility] [id number] [address] [place] [phone] May, [facility] [address] [facility] [id number] [address] [place] [phone] May, [facility] [address] [facility] [id number] [address] [place] [phone] May, Recurrent major depressive d isorder, in partial remission F33.41 ; Mixed obsessional thoughts and acts F42.2 ; 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 and BMI 45.0-49.9, adult Z68.42 [facility] [address] [facility] [id number] [address] [place] [phone] Apr, [facility] [address] [facility] [id number] [address] [place] [phone] Apr, [facility] [address] [facility] [id number] [address] [place] [phone] Apr, [facility] [address] [facility] [id number] [address] [place] [phone] Apr, [facility] [address] [facility] [id number] [address] [place] [phone] Mar, Mixed obsessional thoughts a nd acts F42.2 ; Recurrent major depressive disorder, in partial remission F33.41 ; DANIELA (generalized anxiety disorder) F41.1 and BMI 45.0-49.9, adult Z68.[address] [address] [id number] [place] [id number] Mar, [place] [id number] [place] [address] [id number] Mar, BMI 45.0-49.9, adult Z68.42 ; Instabilit y of right knee joint M25.361 and Rash R21 [facility] [address] [facility] [id number] [address] [place] [phone] Jan, Recurrent major depressive d isorder, in partial remission F33.41 ; Mixed obsessional thoughts and acts F42.2 and BMI 45.0-49.9, adult Z68.42 [address] [address] [id number] [place] [id number] Jan, [facility] [address] [id number] [place] [id number] Jan, Benign essential hypertension I10 ; BMI 45.0-49.9, adult Z68.42 ; Metabolic syndrome E88.81 and Allergic rhinitis, unspecified seasonality, unspecified trigger J30.9 [facility] [address] [facility] [id number] [address] [place] [phone] Dec, DANIELA (generalized anxiety dis order) F41.1 and Depressive disorder, not elsewhere classified F32.9 [facility] [address] [id number] [place] [id number] Dec, Recurrent major depressive disorder, in partial remission F33.41 [facility] [address] [facility] [id number] [place] [id number] Dec, [facility] [address] [id number] [place] [id number] Nov, [facility] [address] [id number] [place] [address] [id number] Nov, Recurrent major depressive disorder, in partial remission F33.41 [place] [address] [facility] [id number] [address] [place] [phone] Nov, Recurrent major depressive d isorder, in partial remission F33.41 ; Mixed obsessional thoughts and acts F42.2 ; DANIELA (generalized anxiety disorder) F41.1 and BMI 45.0-49.9, adult Z68.42 [facility] [address] [id number] [place] [id number] Nov, [facility] Commerce[facility] [address] [id number] [place] [id number] Nov, Other conjunctivitis of both eyes H10.89 and Sciatica, right side M54.31 [facility] [address] [id number] [place] [id number] Nov, [address] [id number] [place] [id number] Nov, [facility] [address] [id number] [place] [id number] October, [facility] [address] [id number] [place] [id number] October, [facility] [address] [facility] [id number] [address] [place] [phone] October, BMI 45.0-49.9, adult Z68.42 ; Mixed obsessional thoughts and acts F42.2 ; Recurrent major depressive disorder, in partial remission F33.41 and DANIELA (generalized anxiety disorder) F41.1 [facility] [address] [id number] [place] [id number] October, Benign essential hypertension I10 ; Morb id obesity E66.01 and BMI 45.0-49.9, adult Z68.42 [facility] [address] [id number] [place] [id number] Sep, [facility] [address] [id number] [place] [id number] Sep, [facility] [address] [id number] [place] [id number] Sep, [facility] [address] [id number] [place] [id number] Sep, Hospital discharge follow-up Z09 ; Aller gic rhinitis, unspecified seasonality, unspecified trigger J30.9 and Shortness of breath R06.02 [facility] [address] [id number] [place] [id number] Sep, Recurrent major depressive disorder, in partial remission F33.41 [facility] [address] [id number] [place] [id number] Aug, Irritable mood R45.4 [facility] [address] [facility] [id number] [address] [place] [phone] Aug, [place] [address] [id number] [place] [id number] Jul, Benign essential hypertension I10 ; Robert a R60.9 and Impacted cerumen of left ear H61.22 [place] [address] [facility] [id number] [address] [place] [phone] 14 Jul, 2017 Major depression F32.9 ; Rec urrent major depressive disorder, in partial remission F33.41 and Anxiety F41.9 [place] [address] [facility] [id number] [address] [place] [phone] Jun, Major depression F32.9 ; Rec urrent major depressive disorder, in partial remission F33.41 and Anxiety F41.[address] [place] [address] [id number] [place] [id number] Jun, Major depression F32.9 ; Morbid obesity E66.01 ; Irritable mood R45.4 ; Hand weakness R29.898 and Vitamin D deficiency E55.[address] [place] [address] [id number] [place] [id number] Jun, [place] [id number] [place] [address] [id number] May, Major depression F32.9 [place] [address] [facility] [id number] [address] [place] [phone] May, Major depression F32.9 [address] [id number] [place] [address] [id number] May, BMI 50.0-59.9, adult Z68.43 ; Major depr ession F32.9 ; Anxiety F41.9 ; Hypertrophic toenail L60.2 and Pain of left great toe M79.[address] [address] [id number] [place] [id number] May, Recurrent major depressive disorder, in partial remission F33.41 [place] [address] [facility] [id number] [address] [place] [phone] Apr, [facility] [address] [id number] [place] [id number] Apr, [facility] [address] [facility] [id number] [address] [place] [phone] Apr, Major depression F32.9 [facility] [address] [id number] [place] [id number] Apr, Severe episode of recurrent major depres sive disorder, without psychotic features F33.2 ; Anxiety F41.9 and Insomnia G47.00 [facility] [address] [id number] [place], [place] [id number] Apr, [facility] [address] [facility] [id number] [address] [place] [phone] Apr, [facility] [address] [id number] [place], [place] [id number] Apr, [facility] [address] [id number] [place] [id number] Mar, [facility] [address] [id number] [place] [id number] Mar, Allergic conjunctivitis of both eyes H10 .13 [facility] [address] [facility] [id number] [address] [place] [phone] Mar, Major depression F32.9 [facility] [id number] [place] [address] [id number] Mar, Metabolic syndrome E88.81 ; History of g astric bypass Z98.890 ; Benign essential hypertension I10 and Allergic conjunctivitis of both eyes H10.13 [facility] [address] [facility] [id number] [address] [place] [phone] Mar, Major depression F32.9 [facility] [address] [id number] [place] [id number] Feb, [facility] [address] [facility] [id number] [address] [place] [phone] Feb, Major depression F32.9 [facility] [address] [id number] [place] [id number] Feb, Subacute maxillary sinusitis J01.00 and Bronchitis J40 [facility] [address] [facility] [id number] [address] [place] [phone] Feb, Major depressive disorder, r ecurrent, moderate F33.1 [facility] [address] [id number] [place], [place] [id number] Jan, [facility] [id number] [place] [address] [id number] Jan, Acute non-recurrent maxillary sinusitis J01.00 and Skin tag L91.8 [facility] [place] [address] [facility] [address] [id number] [place] [id number] Jan, Cough R05 and Sinus congestion R09.81 [facility] [place] [address] [facility] [address] [id number] [place] [id number] Jan, [facility] [place] [address] [facility] [address] [id number] [place] [address] [id number] Jan, Benign essential hypertension I10 ; Hist ory of gastric bypass Z98.890 and Nausea and vomiting in adult R11.2 [facility] [address] [place] [id number] [address] [place] [phone] Jan, Major depressive disorder, r ecurrent, moderate F33.1 [facility] [address] [facility] [id number] [address] [place] [phone] Dec, Insomnia G47.00 ; Recurrent major depressive disorder, in partial remission F33.41 and Morbid obesity E66.01 [facility] [address] [id number] [place] [id number] Dec, [facility] [address] [id number] [place] [id number] Dec, Chronic bacterial conjunctivitis of left eye H10.402 [facility] [address] [id number] [place], [place] [id number] 27 Nov, [address] [id number] [place], [place] [id number] Nov, Dental examination Z01.20 [facility] [address] [id number] [place] [id number] 23 Nov, 2016 Benign essential hypertension I10 ; Hist ory of gastric bypass Z98.890 and Nausea and vomiting in adult R11.2 [place] [address] [place] [phone] 13 Nov, 2016 Major depressive disorder, r ecurrent, moderate F33.1 ; Generalized anxiety disorder F41.1 and Insomnia due to other mental disorder F51.05 [place] [address] [place] [id number] [address] [place] [phone] 12 Nov, 2016 Recurrent major depressive d isorder, in partial remission F33.41 ; Insomnia G47.00 and Morbid obesity E66.01 [facility] [address] [id number] [place] [id number] October, Abscess of left arm L02.414 [place] [id number] [place] [phone] October, Morbid obesity E66.01 ; Lida r depression F32.9 and Recurrent major depressive disorder, in partial remission F33.[address] [id number] [place], [place] [id number] Sep, Benign essential hypertension I10 ; Morb id obesity E66.01 ; S/P gastric bypass Z98.84 ; Abscess L02.91 and Chronic bacterial conjunctivitis of left eye H10.[address] [id number] [place] [address] [id number] 17 Sep, 2016 Dental examination Z01.20 [facility] [address] [facility] [id number] [address] [place] [phone] 11 Sep, 2016 Morbid obesity E66.01 ; Lida r depression F32.9 and Recurrent major depressive disorder, in partial remission F33.41 [facility] [address] [facility] [id number] [address] [place] [phone] Jul, [facility] [address] [facility] [id number] [address] [place] [phone] Jul, Major depressive disorder, r ecurrent, moderate F33.1 [facility] [address] [facility] [id number] [address] [place] [phone] Jul, Major depressive disorder, r ecurrent, moderate F33.1 and Generalized anxiety disorder F41.1 [facility] [id number] [place] [address] [id number] Jul, Cough R05 [facility] [address] [facility] [id number] [address] [place] [phone] Jul, Morbid obesity E66.01 ; Lida r depression F32.9 and Recurrent major depressive disorder, in partial remission F33.41 [facility] [id number] [place] [address] [id number] Jul, [facility] [id number] [place] [address] [id number] Jul, [facility] [id number] [place] [address] [id number] Jul, Gastroenteritis K52.9 and Cough R05 [place] [id number] [id number] [place] [address] [id number] Jun, Acute bacterial conjunctivitis of left e ye H10.32 [facility] [address] [facility] [id number] [address] [place] [phone] Jun, [facility] [address] [facility] [id number] [address] [place] [phone] Jun, Recurrent major depressive d isorder, in partial remission F33.41 [facility] [address] [facility] [id number] [address] [place] [phone] May, Major depression F32.9 and M orbid obesity E66.01 [facility] [address] [facility] [id number] [address] [place] [phone] May, [place] [id number] [place] [id number] May, Thrush B37.0 [facility] [address] [facility] [id number] [address] [place] [id number] Apr, Major depressive disorder, r ecurrent, moderate F33.1 [place] [address] [facility] [id number] [address] [place] [id number] Apr, Insomnia G47.00 ; Major depr ession F32.9 and Recurrent major depressive disorder, in partial remission F33.41 [place] [address] [facility] [id number] [address] [place] [phone] 11 Apr, 2016 [place] [address] [facility] [id number] [address] [place] [phone] 02 Apr, 2016 Major depression F32.9 and R ecurrent major depressive disorder, in partial remission F33.[id number] [place] [phone] Mar, Benign essential hypertension I10 ; Morb id obesity E66.01 ; Impacted cerumen of both ears H61.23 ; Laceration of finger of right hand, initial encounter S61.219A and Encounter for immunization Z23 [facility] [address] [facility] [id number] [address] [place] [id number] 17 Mar, 2016 [facility] [address] [facility] [id number] [address] [place] [phone] Mar, [place] [address] [facility] [id number] [address] [place] [phone] Mar, [id number] [place] [id number] Feb, Nausea R11.0 ; Blood in the stool K92.1 and Benign essential hypertension I10 [place] [address] [facility] [id number] [address] [place] [phone] Feb, Major depression F32.9 and R ecurrent major depressive disorder, in partial remission F33.41 [facility] [id number] [place] [id number] Feb, [facility] [address] [id number] [place] [id number] Feb, Recurrent major depressive disorder, in partial remission F33.41 [facility] [address] [id number] [place] [id number] Jan, [facility] [address] [id number] [place] [id number] Jan, Benign essential hypertension I10 ; Robert a R60.9 and Hyperlipidemia, unspecified hyperlipidemia type E78.5 [facility] [address] [id number] [place] [id number] Jan, Recurrent major depressive disorder, in partial remission F33.41 [facility] [address] [id number] [place] [id number] Jan, [facility] [address] [id number] [place] [id number] Jan, [facility] [address] [id number] [place] [id number] Jan, [facility] [address] [facility] [id number] [address] [place] [id number] Jan, [facility] [address] [facility] [id number] [address] [place] [address] Dec, [facility] [address] [facility] [id number] [address] [place] [address] Nov, [facility] [address] [facility] [id number] [address] [place] [address] Nov, Major depression F32.9 [facility] [address] [facility] [id number] [address] [place] [address] Nov, [place] [address] [facility] [id number] [address] [place] [address] Nov, [place] [address] [facility] [id number] [address] [place] [address] Nov, Major depressive disorder, r ecurrent episode, mild F33.0 and Anxiety F41.[address] [id number] [place] [id number] Nov, [facility] [id number] [place] [id number] October, Left elbow pain M25.522 and Other season al allergic rhinitis J30.[id number] [place] [address] [id number] October, [place] [address] [place] [id number] [address] [place] [address] October, Major depressive disorder, r ecurrent, moderate F33.1 [place] [address] [facility] [id number] [address] [place] [address] October, Major depression F32.9 [place] [address] [place] [id number] [address] [place] [address] Sep, [place] or callus L84 and Onych omycosis B35.1 [place] [address] [place] [id number] [address] [place] [address] Sep, Major depressive disorder, r ecurrent, moderate F33.1 [place] [address] [facility] [id number] [address] [place] [address] Sep, Major depression F32.9 [place] [address] [place] [id number] [address] [place] [address] Sep, Moderate episode of recurren t major depressive disorder F33.1 [facility] [address] [id number] [place] [id number] Sep, Muscle strain T14.8 [place] [address] [facility] [id number] [address] [place] [id number] Aug, Major depression F32.9 [facility] [address] [facility] [id number] [address] [place] [id number] Aug, Major depression F32.9 [facility] [address] [facility] [id number] [address] [place] [address] Jul, Morbid obesity E66.01 and Ma cora depression F32.9 [facility] [address] [facility] [id number] [address] [place] [phone] Jul, Depression, major, recurrent , moderate F33.1 [facility] [address] [place] [address] [id number] [place] [address] [id number] Jul, [facility] [address] [facility] [id number] [address] [place] [address] Jul, [facility] [address] [place] [id number] [address] [place] [address] Jul, Major depression F32.9 and M orbid obesity E66.[id number] [place] [address] [id number] Jul, Type II diabetes mellitus E11.9 ; Callus of foot L84 ; Benign essential hypertension I10 and Renal insufficiency N28.9 [facility] [address] [facility] [id number] [address] [place] [address] Jul, Depression, major, recurrent , moderate F33.1 [facility] [address] [facility] [id number] [address] [place] [phone] Jul, Major depression F32.9 [facility] [address] [facility] [id number] [address] [place] [address] Jul, [facility] [address] [facility] [id number] [address] [place] [id number] Jun, Major depression F32.9 [facility] [address] [place] [id number] [address] [place] [address] Jun, Major depressive disorder, r ecurrent, moderate F33.1 [place] [address] [place] [id number] Jun, [place] [address] [place] [id number] [place] [address] Jun, Major depressive disorder, r ecurrent, moderate F33.1 and Major depression F32.[address] [id number] [place] [address] [id number] Jun, Type II diabetes mellitus E11.9 [place] [address] [place] [address] Jun, Depression, major, recurrent , moderate F33.1 [place] [address] [address] May, Major depressive disorder, r ecurrent, moderate F33.1 [place] [address] [place] [id number] [address] [place] [address] May, [address] [id number] [place] [address] [id number] May, Edema R60.9 [place] [address] [place] [id number] [address] [place] [phone] 17 May, 2015 Insomnia G47.00 and Major de pression F32.[address] [id number] [place] [address] [id number] 15 May, 2015 Morbid obesity E66.01 ; Edema R60.9 ; Sh ortness of breath R06.02 ; Benign essential hypertension I10 and Renal insufficiency N28.[address] [id number] [place] [address] [id number] 14 May, 2015 Hyperlipemia 272.4 and Renal insufficien cy N28.9 [place] [address] [place] [id number] [address] [place] [address] Apr, Major depression F32.9 [facility] [address] [facility] [id number] [address] [place] [address] Apr, [facility] [address] [facility] [id number] [address] [place] [phone] Apr, Major depressive disorder, r ecurrent, moderate F33.1 [facility] [address] [id number] [place] [id number] Apr, Type II diabetes mellitus E11.9 ; Benign essential hypertension I10 ; Edema R60.9 and Renal insufficiency N28.9 [place] [address] [facility] [id number] [address] [place] [address] Mar, Major depressive disorder, r ecurrent, moderate F33.1 [place] [address] [facility] [id number] [address] [place] [phone] Mar, [place] [address] [facility] [id number] [address] [place] [address] Mar, Major depression F32.9 [facility] [address] [facility] [address] [id number] [place] [id number] Mar, Morbid obesity E66.01 ; Benign essential hypertension I10 and Type II diabetes mellitus E11.9 [place] [address] [facility] [id number] [address] [place] [phone] Feb, Major depressive disorder, r ecurrent, moderate F33.1 [place] [address] [facility] [id number] [address] [place] [address] Feb, Major depressive disorder, r ecurrent episode, in partial or unspecified remission 296.35 ; Anxiety state, unspecified 300.00 and Morbid obesity 278.01 [place] [address] [facility] [id number] [address] [place] [address] Feb, [facility] [address] [id number] [place] [id number] Feb, Vomiting 787.03 and Viral syndrome 079.9 9 [place] [address] [facility] [id number] [address] [place] [phone] 15 Feb, 2015 Major depression, recurrent 296.30 ; Generalized anxiety disorder 300.02 and No condition on [place] II V71.09 [facility] [address] [place] [address] AVE [id number] [place] [id number] 03 Feb, 2015 Skin tag 701.9 [facility] [address] [facility] [id number] [address] [place] [phone] Feb, [facility] [address] [facility] [id number] [address] [place] [phone] Jan, Depression, major, recurrent , moderate 296.[address] [id number] [place] [id number] Jan, Nausea and vomiting 787.01 ; Rib pain on right side 786.50 and Fall on or from sidewalk curb E880.1 [facility] [address] [place] [id number] [address] [place] [phone] Jan, [facility] [address] [place] [id number] [address] [place] [phone] Jan, Major depressive disorder, r ecurrent episode, in partial or unspecified remission 296.35 and Anxiety state, unspecified 300.[address] [id number] [place] [id number] Jan, [facility] [address] [facility] [id number] [address] [place] [phone] Jan, Depression, major, recurrent , moderate 296.32 [facility] [address] [facility] [id number] [address] [place] [address] Jan, Major depression, recurrent 296.30 ; No condition on [place] II V71.09 and No condition on axis III V71.09 [address] [id number] [place] [id number] Jan, Drug-induced nausea and vomiting 787.01 [facility] [address] [place] [id number] [address] [place] [address] Jan, Depression, major, recurrent , moderate 296.[address] [address] Dec, Depression, major, recurrent , moderate 296.32 [facility] [place] Jama [facility] [address] [id number] [place] [address] [id number] Dec, Morbid obesity 278.01 ; Metabolic syndro me 277.7 ; Hyperlipemia 272.4 ; Benign essential hypertension 401.1 ; Dietary counseling V65.3 ; Exercise counseling V65.41 and Inflamed skin tag 701.[address] [address] Dec, Depression, major, recurrent , moderate 296.32 [place] [address] [address] Dec, [address] [address] Dec, Major depression, recurrent 296.30 ; Anxiety, generalized 300.02 and No condition on [place] II V71.[address] [address] Dec, Depression, major, recurrent , moderate 296.32 [place] [address] [address] Dec, Major depressive disorder, r ecurrent episode, moderate 296.32 [place] [address] [address] Dec, Depression, major, recurrent , moderate 296.[address] [address] Dec, Depression, major, recurrent , moderate 296.32 [place] [address] [address] Dec, Depression, major, recurrent , moderate 296.32 [place] [address] [address] Dec, Depression, major, recurrent , moderate 296.32 [facility] [address] [address] Nov, Depression, major, recurrent , moderate 296.32 [place] [address] [address] Nov, Major depression 296.20 ; So cial phobia 300.23 and No condition on [place] II V71.09 [facility] [address] [address] Nov, Depression, major, recurrent , moderate 296.32 [place] [address] [address] Nov, Major depressive disorder, r ecurrent episode, moderate 296.32 and Generalized anxiety disorder 300.02 [place] [address] [address] Nov, Depression, major, recurrent , moderate 296.32 [place] [address] [address] Nov, Depression, major, recurrent , moderate 296.32 [place] [address] [address] October, Generalized anxiety disorder 300.02 ; No condition on [place] II V71.09 and Major depressive disorder, recurrent 296.30 [facility] [address] [address] Sep, [place] [address] [address] Sep, [place] [address] [address] Aug, [place] [address] [address] Aug, [facility] [address] [id number] [facility] [place] [address] 23 Aug, 2014 [facility] [address] [id number] [facility] [place] [address] 23 Aug, 2014 [facility] [address] [id number] [facility] [place] [address] 20 Aug, 2014 [facility] [address] [id number] [facility] [place] [address] 20 Aug, 2014 [facility] [address] [id number] [facility] [place] [address] 20 Aug, 2014 [facility] [address] [id number] [address] [place] [address], [place] [address] 20 Aug, 2014 [facility] [address] [id number] [address] [place] [address], [place] [address] 13 Aug, 2014 [facility] [address] [id number] [address] [place] [address], [place] [address] 13 Aug, 2014 [facility] [address] [id number] [address] [place] [address], [place] [address] 13 Aug, 2014 [facility] [address] [id number] [address] [place] [address], [place] [address] 13 Aug, 2014 [facility] [address] [id number] [address] [place] [address], [place] [address] 12 Aug, 2014 [facility] [address] [id number] [address] [place] [address], [place] [address] 12 Aug, 2014 [facility] [address] [id number] [address] [place] [address], [place] [address] 10 Aug, 2014 [facility] [address] [id number] [address] [place] [address], [place] [address] 10 Aug, 2014 [facility] [address] [id number] [address] [place] [address], [place] [address] 09 Aug, 2014 [facility] [address] [id number] [address] [place] [address], [place] [address] Aug, [facility] [address] [id number] [address] [place] [address], [place] [address] Jul, [facility] [address] [id number] [address] [place] [address], [place] [address] Jul, [facility] [address] [id number] [address] [place] [address], [place] [address] Jul, [facility] [address] [id number] [address] [place] [address], [place] [address] Jul, [facility] [address] [id number] [address] [place] [address], [place] [address] Jul, [facility] [address] [id number] [address] [place] [address], [place] [address] Jul, [facility] [address] [id number] [address] [place] [address], [place] [address] Jun, [facility] [address] [id number] [address] [place] [address], [place] [address] Jun, [facility] [address] [id number] [address] [place] [address], [place] [address] Jun, [facility] [address] [id number] [address] [place] [address], [place] [address] Jun, [facility] [address] [id number] [address] [place] [address], [place] [address] Jun, [facility] [address] [id number] [address] [place] [address], [place] [address] Jun, [facility] [address] [id number] [address] [place] [address], [place] [address] Jun, [facility] [address] [id number] [address] [place] [address], [place] [address] Jun, [facility] [address] [id number] [address] [place] [address], [place] [address] Jun, [facility] [address] [id number] [address] [place] [address], [place] [address] Jun, [facility] [address] [id number] [address] [place] [address], [place] [address] Jun, [facility] [address] [id number] [address] [place] [address], [place] [address] Jun, [facility] [address] [id number] [place], [place] [id number] Jun, [facility] [address] [id number] [address] [place] [address], [place] [address] Jun, [facility] [address] [id number] [address] [place] [address], [place] [address] Jun, [facility] [address] [id number] [address] [place] [address], [place] [address] Jun, [facility] [address] [id number] [address] [place] [address], [place] [address] May, [facility] [address] [id number] [address] [place] [address], [place] [address] May, [facility] [address] [id number] [address] [place] [address], [place] [address] May, [facility] [address] [id number] [address] [place] [address], [place] [address] May, [facility] [address] [id number] [address] [place] [address], [place] [address] Apr, [facility] [address] [id number] [address] [place] [address], [place] [address] Apr, [facility] [address] [id number] [address] [place] [address], [place] [address] Apr, [facility] [address] [id number] [address] [place] [address], [place] [address] Apr, [facility] [address] [id number] [address] [place] [address], [place] [address] Apr, [facility] [address] [id number] [address] [place] [address], [place] [address] Apr, [facility] [address] [id number] [address] [place] [address], [place] [address] Apr, [facility] [address] [id number] [address] [place] [address], [place] [address] Apr, [facility] [address] [id number] [address] [place] [address], [place] [address] Apr, [facility] [address] [id number] [address] [place] [address], [place] [address] Apr, [facility] [address] [id number] [address] [place] [address], [place] [address] Apr, [facility] [address] [id number] [address] [place] [address], [place] [address] Apr, [facility] [address] [id number] [address] [place] [address], [place] [address] Apr, [facility] [address] [id number] [address] [place] [address], [place] [address] Apr, [facility] [address] [id number] [address] [place] [address], [place] [address] Apr, [facility] [address] [id number] [address] [place] [address] Apr, [facility] [address] [id number] [address] [place] [address] Apr, [facility] [address] [id number] [address] [place] [address], [place] [address] Apr, [facility] [address] [id number] [address] [place] [address], [place] [address] Apr, [facility] [address] [id number] [address] [place] [address] Apr, [facility] [address] [id number] [address] [place] [address] Mar, [facility] [address] [id number] [address] [place] [address], [place] [address] Mar, [facility] [address] [id number] [address] [place] [address], [place] [address] Mar, [facility] [address] [id number] [address] [place] [address], [place] [address] Mar, [facility] [address] [id number] [address] [place] [address], [place] [address] Mar, [facility] [address] [id number] [address] [place] [address], [place] [address] Mar, [facility] [address] [id number] [address] [place] [address], [place] [address] Mar, [facility] [address] [id number] [address] [place] [address], [place] [address] Mar, [facility] [address] [id number] [address] [place] [address], [place] [address] Mar, [facility] [address] [id number] [address] [place] [address], [place] [address] Mar, [facility] [address] [id number] [address] [place] [address], [place] [address] Feb, [facility] [address] [id number] [address] [place] [address], [place] [address] Feb, [facility] [address] [id number] [address] [place] [id number] Feb, [facility] [address] [id number] [address] [place] [address], [place] [address] Feb, [facility] [address] [id number] [address] [place] [address], [place] [address] Jan, [facility] [address] [id number] [address] [place] [address], [place] [address] Jan, [facility] [address] [id number] [facility] [place] [address] Jan, [facility] [address] [id number] [facility] [place] [address] Jan, [facility] [address] [id number] [address] [place] [address], [place] [address] Jan, [facility] [address] [id number] [address] [place] [address], [place] [address] Jan, [facility] [address] [id number] [address] [place] [address], [place] [address] Dec, [facility] [address] [id number] [address] [place] [address], [place] [address] Dec, [facility] [address] [id number] [address] [place] [address], [place] [address] Nov, [facility] [address] [id number] [address] [place] [address], [place] [address] Nov, [facility] [address] [id number] [address] [place] [address], [place] [address] Nov, [facility] [address] [id number] [address] [place] [address], [place] [address] Nov, [facility] [address] [id number] [address] [place] [address], [place] [address] Nov, [facility] [address] [id number] [address] [place] [address], [place] [address] Nov, [facility] [address] [id number] [address] [place] [address], [place] [address] Sep, [facility] [address] [id number] [address] [place] [address], [place] [address] Sep, [facility] [address] [id number] [address] [place] [address], [place] [address] Sep, [facility] [address] [id number] [address] [place] [address], [place] [address] Sep, [facility] [address] [id number] [facility] [place] [address] Aug, [facility] [address] [id number] [address] [place] [address], [place] [address] Aug, [facility] [address] [id number] [address] [place] [address], [place] [address] Jul, [facility] [address] [id number] [address] [place] [address], [place] [address] Jul, [facility] [address] [id number] [address] [place] [address], [place] [address] Jun, [facility] [address] [id number] [address] [place] [address], [place] [address] Jun, [facility] [address] [id number] [address] [place] [address], [place] [address] Jun, [facility] [address] [id number] [address] [place] [address], [place] [address] Jun, [facility] [address] [id number] [address] [place] [address], [place] [address] May, [facility] [address] [id number] [address] [place] [address], [place] [address] May, [facility] [address] [id number] [address] [place] [address], [place] [address] May, [facility] [address] [id number] [address] [place] [address], [place] [address] May, [facility] [address] [id number] [address] [place] [address], [place] [address] May, [facility] [address] [id number] [address] [place] [address], [place] [address] May, [facility] [address] [id number] [address] [place] [address], [place] [address] Apr, [facility] [address] [id number] [address] [place] [address], [place] [address] Apr, [facility] [address] [id number] [address] [place] [address], [place] [address] Apr, [facility] [address] [id number] [address] [place] [address], [place] [address] Apr, [facility] [address] [id number] [address] [place] [address], [place] [address] Mar, [facility] [address] [id number] [address] [place] [address], [place] [address] Mar, [facility] [address] [id number] [address] [place] [address], [place] [address] Mar, [facility] [address] [id number] [address] [place] [address], [place] [address] Mar, [facility] [address] [id number] [address] [place] [address], [place] [address] Feb, [facility] [address] [id number] [place] [id number] Jan, [facility] [address] [id number] [address] [place] [address], [place] [address] Jan, [facility] [address] [id number] [address] [place] [address], [place] [address] Dec, [facility] [address] [id number] [address] [place] [address] Dec, [facility] [address] [id number] [address] [place] [address] Dec, [facility] [address] [id number] [place] [id number] Dec, [facility] [address] [id number] [address] [place] [id number] Nov, [facility] [address] [id number] [address] [place] [address], [place] [address] Nov, [facility] [address] [id number] [address] [place] [id number] 12 Nov, 2012 [facility] [address] [facility] [id number] [address] [place] [address] Nov, [facility] [address] [facility] [id number] [address] [place] [address] Nov, [facility] [address] [facility] [id number] [address] [place] [address] October, [facility] [address] [facility] [id number] [address] [place] [id number] October, [facility] [address] [facility] [id number] [address] [place] [id number] Aug, [facility] [address] [facility] [id number] [address] [place] [address] Nov, IMMUNIZATIONS No Known Immunizations SOCIAL HISTORY [...] 03/2016 Hospitalization History gastric sleeve Hospitalization History [facility] Trouble with left shoulder blade 08/2017
--- OUTSIDE RECORDS SUMMARY | 2019-11-29 09:19 | XMS REPORT ---
Author Author Curt SEGAL Y Organization [facility] Address [address] [place] [address] Care Team Providers Care [place] Hammerer Name Role Phone SUNIL SEGAL Unavailable PROBLEMS Type Condition ICD9-CM Code INQ46-RT Code Onset Dates Condition S tatus SNOMED Code Problem Insomnia G47.00 Active 287249621 Problem Benign essential hypertension I10 Active 7347008 Problem Hyperlipemia E78.5 Active 9480893 4 Problem Edema R60.9 Active 409601506 Problem Morbid obesity E66.01 Active 82803 6002 Problem Severe episode of recurrent major depressive disorder, without psychotic features F33.2 Active 06467234 Problem Vitamin D deficiency E55.9 Active 57884653 Problem Mixed obsessional thoughts and acts F42.2 Active 96248038 Problem Chronic fatigue R53.82 Active 8422 9001 Problem Metabolic syndrome E88.81 Active 2 53152853 Problem Other chronic pain G89.29 Active 8 0867156 Problem Renal insufficiency N28.9 Active 618631621 Problem BMI 45.0-49.9, adult Z68.42 Active 753990999 Problem DANIELA (generalized anxiety disorder) F41.1 Active 78877620 Problem Sciatica, right side M54.31 Active [id number] Problem 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 Active 90606918 ALLERGIES No Information ENCOUNTERS Encounter Location Date Diagnosis [facility] [address] [facility] [id number] [id number] Jan, [facility] [address] [facility] [id number] [address] [place] [id number] Dec, [facility] [address] [facility] [id number] [address] [place] [address] Dec, [address] [address] Nov, [facility] [address] [facility] [address] [id number][place] [id number] Nov, [facility] [address] [facility] [id number] [address] [place] [address] Nov, [facility] [address] [facility] [id number] [address] [place] [address] Nov, [facility] [address] [facility] [id number] [address] [place] [address] Nov, DANIELA (generalized anxiety dis order) F41.1 ; Severe episode of recurrent major depressive disorder, without psychotic features F33.2 ; Mixed obsessional thoughts and acts F42.2 and 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 [facility] [place] [address] [facility] [address] [id number][place] [id number] Nov, Morbid obesity E66.01 [facility] [address] [facility] [id number] [address] [place] [address] Nov, [facility] [address] [facility] [id number] [address] [place] [address] Nov, DANIELA (generalized anxiety dis order) F41.1 ; Mixed obsessional thoughts and acts F42.2 ; Severe episode of recurrent major depressive disorder, without psychotic features F33.2 and 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 [place] [address] [facility] [address] [id number], [place] [id number] October, Morbid obesity E66.[address] [id number], [place] [id number] October, Benign essential hypertension I10 and Mo rbid obesity E66.01 [place] [address] [facility] [address] [id number], [place] [id number] October, [facility] [address] [facility] [id number] [address] [place] [address] October, Severe episode of recurrent major depressive disorder, without psychotic features F33.[address] [id number], [place] [id number] October, Morbid obesity E66.01 [facility] [id number][place] [id number] October, [facility] [address] [facility] [id number] [address] [place] [address] October, Severe episode of recurrent major depressive disorder, without psychotic features F33.2 ; DANIELA (generalized anxiety disorder) F41.1 ; Mixed obsessional thoughts and acts F42.2 and Dependent personality disorder F60.[address] [id number], [place] [id number] October, Morbid obesity E66.01 [facility] [address] [place] [id number] [address] [place] [address] [id number] Sep, Dental examination Z01.[id number] [place] [address] [id number] Sep, [facility] [address] [place] [id number] [address] [place] [address] Sep, Sore in mouth K13.79 and Mor bid obesity E66.01 [facility] [address] [place] [address] Sep, Dental examination Z01.20 [facility] [address] [place] [address] Sep, Anxiety disorder, unspecifie d F41.[address] [id number], [place] [id number] Sep, Mouth ulcer K12.[address] [id number], [place] [id number] Sep, Morbid obesity E66.[address] [id number], [place] [id number] Sep, Allergic rhinitis, unspecified seasonali ty, unspecified trigger J30.9 and Shortness of breath R06.[address] [id number], [place] [id number] Sep, 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 [facility] [address] [place] [address] AVE [id number], [place] [id number] Aug, Mouth abscess K12.2 ; Mouth ulcer K12.1 ; Bloating R14.0 and Morbid obesity E66.01 [facility] [address] [place] [address] AVE [id number], [place] [id number] Aug, [facility] [id number], [place] [id number] Aug, [facility] [id number], [place] [id number] Jul, Major depressive disorder, recurrent, mo derate F33.1 ; Abscess of arm, left L02.414 ; BMI 45.0-49.9, adult Z68.42 and Morbid obesity E66.01 [facility] [id number], [place] [id number] Jul, [address] [id number], [place] [id number] Jul, [facility] [id number], [place] [address]16834857 Jun, Pain in right knee M25.561 and Other chr onic pain G89.[address] [id number], [place] [id number] Jun, Benign essential hypertension I10 ; BMI 45.0-49.9, adult Z68.42 ; Morbid obesity E66.01 ; Vitamin D deficiency E55.9 ; Insomnia G47.00 ; 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 ; Edema R60.9 ; Recurrent major depressive disorder, in partial remission F33.41 ; Chronic fatigue R53.82 ; Acute pain of right knee M25.561 ; Metabolic syndrome E88.81 and Irritable mood R45.4 [facility] [address] [facility] [id number] [address] [place] [address] Jun, [place] [address] [facility] [address] [id number], [place] [id number] Jun, Irritable mood R45.4 [facility] [address] [facility] [id number] [address] [place] [address] May, [facility] [address] [place] [id number] [address] [place] [address] May, [facility] [address] [place] [id number] [place] [address] May, Recurrent major depressive d isorder, in partial remission F33.41 ; Mixed obsessional thoughts and acts F42.2 ; 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 and BMI 45.0-49.9, adult Z68.42 [facility] [address] [place] [id number] [address] [place] [address] Apr, [facility] [address] [place] [id number] [address] [place] [address] Apr, [facility] [address] [place] [id number] [address] [place] [address] Apr, [place] [address] [address] Apr, [facility] [address] [place] [id number] [address] [place] [address] Mar, Mixed obsessional thoughts a nd acts F42.2 ; Recurrent major depressive disorder, in partial remission F33.41 ; DANIELA (generalized anxiety disorder) F41.1 and BMI 45.0-49.9, adult Z68.[address] [place] [address] [id number], [place] [id number] Mar, [address] [id number] [place] [address] [id number] Mar, BMI 45.0-49.9, adult Z68.42 ; Instabilit y of right knee joint M25.361 and Rash R21 [facility] [address] [facility] [id number] [address] [place] [address] Jan, Recurrent major depressive d isorder, in partial remission F33.41 ; Mixed obsessional thoughts and acts F42.2 and BMI 45.0-49.9, adult Z68.42 [facility] [address] [id number], [place] [id number] Jan, [facility] [place] [address] [id number], [place] [id number] Jan, Benign essential hypertension I10 ; BMI 45.0-49.9, adult Z68.42 ; Metabolic syndrome E88.81 and Allergic rhinitis, unspecified seasonality, unspecified trigger J30.9 [place] [address] [facility] [id number] [address] [place] [address] Dec, DANIELA (generalized anxiety dis order) F41.1 and Depressive disorder, not elsewhere classified F32.9 [facility] [place] [address] [id number], [place] [id number] Dec, Recurrent major depressive disorder, in partial remission F33.41 [facility] [place] [address] [id number], [place] [id number] Dec, [facility] [place] [place] [address] [id number], [place] [id number] Nov, [facility] [place] [address] [id number], [place] [id number] Nov, Recurrent major depressive disorder, in partial remission F33.41 [place] [address] [facility] [id number] [address] [place] [address] Nov, Recurrent major depressive d isorder, in partial remission F33.41 ; Mixed obsessional thoughts and acts F42.2 ; DANIELA (generalized anxiety disorder) F41.1 and BMI 45.0-49.9, adult Z68.42 [facility] [address] [id number], [place] [id number] Nov, [facility] Limited[facility] [address] [id number], [place] [id number] Nov, Other conjunctivitis of both eyes H10.89 and Sciatica, right side M54.[address] [facility] [id number], [place] [id number] Nov, [facility] [address] [facility] [address] [id number], [place] [id number] Nov, [facility] [id number], [place] [id number] October, [facility] Jama [facility] [address] [id number], [place] [id number] October, [facility] [address] [facility] [id number] [place] [address] October, BMI 45.0-49.9, adult Z68.42 ; Mixed obsessional thoughts and acts F42.2 ; Recurrent major depressive disorder, in partial remission F33.41 and DANIELA (generalized anxiety disorder) F41.1 [facility] [address] [facility] [address] [id number], [place] [id number] October, Benign essential hypertension I10 ; Morb id obesity E66.01 and BMI 45.0-49.9, adult Z68.42 [facility] [address] [id number], [place] [id number] Sep, [facility] Jama [facility] [address] [id number], [place] [id number] Sep, [facility] [address] [id number], [place] [id number] Sep, [facility] [address] [place] [address] AVE [id number], [place] [id number] Sep, Hospital discharge follow-up Z09 ; Aller gic rhinitis, unspecified seasonality, unspecified trigger J30.9 and Shortness of breath R06.[address] [facility] [id number], [place] [id number] Sep, Recurrent major depressive disorder, in partial remission F33.[address] [place] [address] [id number], [place] [id number] Aug, Irritable mood R45.4 [place] [address] [facility] [id number] [address] [place] [address] Aug, [place] [id number] [place] [address] [id number] Jul, Benign essential hypertension I10 ; Robert a R60.9 and Impacted cerumen of left ear H61.22 [place] [address] [facility] [id number] [address] [place] [phone] 14 Jul, 2017 Major depression F32.9 ; Rec urrent major depressive disorder, in partial remission F33.41 and Anxiety F41.9 [place] [address] [facility] [id number] [address] [place] [address] Jun, Major depression F32.9 ; Rec urrent major depressive disorder, in partial remission F33.41 and Anxiety F41.[address] [place] [address] [id number], [place] [id number] Jun, Major depression F32.9 ; Morbid obesity E66.01 ; Irritable mood R45.4 ; Hand weakness R29.898 and Vitamin D deficiency E55.[address] [id number], [place] [id number] Jun, [place] [address] [id number], [place] [id number] May, Major depression F32.9 [place] [address] [facility] [id number] [address] [place] [address] May, Major depression F32.[address] [place] [address] [id number], [place] [id number] May, BMI 50.0-59.9, adult Z68.43 ; Major depr ession F32.9 ; Anxiety F41.9 ; Hypertrophic toenail L60.2 and Pain of left great toe M79.675 [facility] [address] [id number], [place] [id number] May, Recurrent major depressive disorder, in partial remission F33.41 [facility] [address] [facility] [id number] [address] [place] [address] Apr, [facility] [address] [id number], [place] [id number] Apr, [facility] [address] [facility] [id number] [address] [place] [address] Apr, Major depression F32.9 [facility] [id number] [place] [address] [id number] Apr, Severe episode of recurrent major depres sive disorder, without psychotic features F33.2 ; Anxiety F41.9 and Insomnia G47.00 [facility] [id number] [place] [address] [id number] Apr, [facility] [address] [facility] [id number] [address] [place] [address] Apr, [facility] [id number] [place] [address] [id number] Apr, [facility] [address] [id number], [place] [id number] Mar, [facility] [id number] [place] [address] [id number] Mar, Allergic conjunctivitis of both eyes H10 .13 [facility] [address] [facility] [id number] [address] [place] [address] Mar, Major depression F32.9 [facility] [id number] [place] [address] [id number] Mar, Metabolic syndrome E88.81 ; History of g astric bypass Z98.890 ; Benign essential hypertension I10 and Allergic conjunctivitis of both eyes H10.13 [facility] [address] [facility] [id number] [address] [place] [address] Mar, Major depression F32.9 [facility] [address] [facility] [address] [id number], [place] [id number] Feb, [facility] [address] [facility] [id number] [address] [place] [address] Feb, Major depression F32.9 [facility] [address] [place] [address] [id number] [place] [address] [id number] Feb, Subacute maxillary sinusitis J01.00 and Bronchitis J40 [facility] [address] [facility] [id number] [address] [place] [address] Feb, Major depressive disorder, r ecurrent, moderate F33.1 [facility] [address] [facility] [address] [id number], [place] [id number] Jan, [address] [id number] [place] [address] [id number] Jan, Acute non-recurrent maxillary sinusitis J01.00 and Skin tag L91.[address] [id number] [place] [address] [id number] Jan, Cough R05 and Sinus congestion R09.[address] [id number], [place] [id number] Jan, [address] [id number] [place] [address] [id number] Jan, Benign essential hypertension I10 ; Hist ory of gastric bypass Z98.890 and Nausea and vomiting in adult R11.2 [facility] [address] [facility] [id number] [address] [place] [address] Jan, Major depressive disorder, r ecurrent, moderate F33.1 [facility] [address] [facility] [id number] [address] [place] [address] Dec, Insomnia G47.00 ; Recurrent major depressive disorder, in partial remission F33.41 and Morbid obesity E66.01 [facility] [address] [facility] [address] [id number], [place] [id number] Dec, [facility] [address] [id number], [place] [id number] Dec, Chronic bacterial conjunctivitis of left eye H10.[address] [id number], [place] [id number] Nov, [address] [id number], [place] [id number] Nov, Dental examination Z01.[address] [id number], [place] [id number] Nov, Benign essential hypertension I10 ; Hist ory of gastric bypass Z98.890 and Nausea and vomiting in adult R11.2 [place] [address] [place] [address] Nov, Major depressive disorder, r ecurrent, moderate F33.1 ; Generalized anxiety disorder F41.1 and Insomnia due to other mental disorder F51.05 [place] [address] [place] [address] Nov, Recurrent major depressive d isorder, in partial remission F33.41 ; Insomnia G47.00 and Morbid obesity E66.01 [facility] [address] [place] [id number] [place] [id number] October, Abscess of left arm L02.414 [place] [address] [place] [id number] [place] [address] October, Morbid obesity E66.01 ; Lida r depression F32.9 and Recurrent major depressive disorder, in partial remission F33.41 [address] [id number], [place] [id number] Sep, Benign essential hypertension I10 ; Morb id obesity E66.01 ; S/P gastric bypass Z98.84 ; Abscess L02.91 and Chronic bacterial conjunctivitis of left eye H10.[address] [id number], [place] [id number] Sep, Dental examination Z01.20 [place] [address] [facility] [id number] [address] [place] [address] Sep, Morbid obesity E66.01 ; Lida r depression F32.9 and Recurrent major depressive disorder, in partial remission F33.41 [place] [address] [facility] [id number] [address] [place] [address] Jul, [place] [address] [facility] [id number] [address] [place] [address] Jul, Major depressive disorder, r ecurrent, moderate F33.1 [place] [address] [place] [id number] [address] [place] [address] Jul, Major depressive disorder, r ecurrent, moderate F33.1 and Generalized anxiety disorder F41.[id number] [place] [address] [id number] Jul, Cough R05 [place] [address] [place] [id number] [address] [place] [address] Jul, Morbid obesity E66.01 ; Lida r depression F32.9 and Recurrent major depressive disorder, in partial remission F33.[address] [place] [id number] [place] [address] [id number] Jul, [place] [id number] [place] [address] [id number] Jul, [place] [address] [id number] [place] [address] [id number] Jul, Gastroenteritis K52.9 and Cough R05 [address] [id number] [place] [address] [id number] Jun, Acute bacterial conjunctivitis of left e ye H10.32 [place] [address] [address] [facility] [id number] [address] [place] [phone] Jun, [place] [address] [facility] [id number] [address] [place] [address] Jun, Recurrent major depressive d isorder, in partial remission F33.41 [place] [address] [facility] [id number] [address] [place] [phone] May, Major depression F32.9 and M orbid obesity E66.01 [place] [address] [facility] [id number] [address] [place] [address] May, [place] [id number] [place] [address] [id number] May, Thrush B37.0 [place] [address] [facility] [id number] [address] [place] [address] Apr, Major depressive disorder, r ecurrent, moderate F33.1 [place] [address] [facility] [id number] [address] [place] [address] Apr, Insomnia G47.00 ; Major depr ession F32.9 and Recurrent major depressive disorder, in partial remission F33.41 [place] [address] [facility] [id number] [address] [place] [address] Apr, [place] [address] [facility] [id number] [address] [place] [address] Apr, Major depression F32.9 and R ecurrent major depressive disorder, in partial remission F33.[address] [id number] [place] [address] [id number] Mar, Benign essential hypertension I10 ; Morb id obesity E66.01 ; Impacted cerumen of both ears H61.23 ; Laceration of finger of right hand, initial encounter S61.219A and Encounter for immunization Z23 [place] [address] [facility] [id number] [address] [place] [phone] 17 Mar, 2016 [place] [address] [address] [facility] [id number] [address] [place] [id number] 13 Mar, 2016 [place] [address] [address] [facility] [id number] [address] [place] [phone] Mar, [facility] [address] [id number] [id number] Feb, Nausea R11.0 ; Blood in the stool K92.1 and Benign essential hypertension I10 [facility] [address] [facility] [id number] [address] [place] [id number] Feb, Major depression F32.9 and R ecurrent major depressive disorder, in partial remission F33.41 [facility] [address] [id number] [id number] Feb, [facility] [address] [id number] [id number] Feb, Recurrent major depressive disorder, in partial remission F33.[address] [facility] [address] [id number][place] [id number] Jan, [facility] [id number] [place] [id number] Jan, Benign essential hypertension I10 ; Robert a R60.9 and Hyperlipidemia, unspecified hyperlipidemia type E78.[address] [facility] [address] [id number][place] [id number] Jan, Recurrent major depressive disorder, in partial remission F33.41 [facility] [address] [id number] [place] [id number] Jan, [facility] [address] [id number][place] [id number] Jan, [facility] [address] [id number][place] [id number] Jan, [facility] [address] [facility] [id number] [address] [place] [id number] Jan, [facility] [address] [facility] [id number] [address] [place] [id number] Dec, [facility] [address] [facility] [id number] [address] [place] [id number] Nov, [facility] [address] [facility] [id number] [address] [place] [phone] Nov, Major depression F32.9 [facility] [address] [facility] [id number] [address] [place] [address] [id number] Nov, [facility] [address] [facility] [id number] [address] [place] [address] Nov, [facility] [address] [facility] [id number] [address] [place] [address] Nov, Major depressive disorder, r ecurrent episode, mild F33.[address] [facility] [id number] [place] [address] [id number] Nov, [id number] [place] [address] [id number] October, Left elbow pain M25.522 and Other season al allergic rhinitis J30.[address] [id number] [place] [address] [id number] October, [facility] [address] [facility] [id number] [address] [place] [address] October, Major depressive disorder, r ecurrent, moderate F33.1 [facility] [address] [facility] [id number] [address] [place] [address] October, Major depression F32.9 [facility] [address] [facility] [id number] [address] [place] [address] Sep, [place] or callus L84 and Onych omycosis B35.1 [facility] [address] [facility] [id number] [address] [place] [address] Sep, Major depressive disorder, r ecurrent, moderate F33.1 [facility] [address] [facility] [id number] [address] [place] [address] Sep, Major depression F32.9 [facility] [address] [facility] [id number] [address] [place] [address] Sep, Moderate episode of recurren t major depressive disorder F33.1 [facility] [id number] [place] [address] [id number] Sep, Muscle strain T14.8 [facility] [address] [facility] [id number] [address] [place] [address] Aug, Major depression F32.9 [facility] [address] [facility] [id number] [address] [place] [address] Aug, Major depression F32.9 [facility] [address] [facility] [id number] [address] [place] [address] Jul, Morbid obesity E66.01 and Ma cora depression F32.9 [facility] [address] [facility] [id number] [address] [place] [address] Jul, Depression, major, recurrent , moderate F33.[address] [id number] [place] [address] [id number] Jul, [facility] [address] [facility] [id number] [address] [place] [address] Jul, [facility] [address] [facility] [id number] [address] [place] [address] Jul, Major depression F32.9 and M orbid obesity E66.[address] [id number] [place] [address] [id number] Jul, Type II diabetes mellitus E11.9 ; Callus of foot L84 ; Benign essential hypertension I10 and Renal insufficiency N28.9 [facility] [address] [facility] [id number] [address] [place] [address] Jul, Depression, major, recurrent , moderate F33.1 [facility] [address] [facility] [id number] [address] [place] [address] Jul, Major depression F32.9 [facility] [address] [facility] [id number] [address] [place] [address] 04 Jul, 2015 [place] [address] [facility] [id number] [address] [place] [address] Jun, Major depression F32.9 [place] [address] [facility] [id number] [address] [place] [address] Jun, Major depressive disorder, r ecurrent, moderate F33.1 [place] [address] [address] Jun, [place] [address] [place] [id number] [place] [address] Jun, Major depressive disorder, r ecurrent, moderate F33.1 and Major depression F32.[address] [place] [id number] [place] [address] [id number] Jun, Type II diabetes mellitus E11.9 [place] [address] [place] [id number] [address] [place] [address] Jun, Depression, major, recurrent , moderate F33.1 [place] [address] [place] [id number] [address] [place] [address] May, Major depressive disorder, r ecurrent, moderate F33.1 [place] [address] [place] [id number] [address] [place] [address] May, [place] [id number] [place] [address] [id number] May, Edema R60.9 [place] [address] [facility] [id number] [address] [place] [address] 17 May, 2015 Insomnia G47.00 and Major de pression F32.[address] [place] [id number] [place] [address] [id number] 15 May, 2015 Morbid obesity E66.01 ; Edema R60.9 ; Sh ortness of breath R06.02 ; Benign essential hypertension I10 and Renal insufficiency N28.9 [facility] [address] [id number] [id number] May, Hyperlipemia 272.4 and Renal insufficien cy N28.9 [place] [address] [facility] [id number] [address] [place] [address] Apr, Major depression F32.9 [facility] [address] [facility] [id number] [address] [place] [address] Apr, [place] [address] [facility] [id number] [address] [place] [address] Apr, Major depressive disorder, r ecurrent, moderate F33.1 [facility] [address] [place] [address] [id number] [place] [address] [id number] Apr, Type II diabetes mellitus E11.9 ; Benign essential hypertension I10 ; Edema R60.9 and Renal insufficiency N28.9 [place] [address] [facility] [id number] [address] [place] [address] Mar, Major depressive disorder, r ecurrent, moderate F33.1 [place] [address] [facility] [id number] [address] [place] [address] Mar, [place] [address] [facility] [id number] [address] [place] [address] Mar, Major depression F32.9 [facility] [address] [place] [address] [id number] [place] [address] [id number] Mar, Morbid obesity E66.01 ; Benign essential hypertension I10 and Type II diabetes mellitus E11.9 [place] [address] [facility] [id number] [address] [place] [address] Feb, Major depressive disorder, r ecurrent, moderate F33.1 [place] [address] [facility] [id number] [address] [place] [address] Feb, Major depressive disorder, r ecurrent episode, in partial or unspecified remission 296.35 ; Anxiety state, unspecified 300.00 and Morbid obesity 278.01 [place] [address] [place] [id number] [address] [place] [address] 21 Feb, [address] [id number] [id number] 16 Feb, 2015 Vomiting 787.03 and Viral syndrome 079.9 9 [facility] [address] [place] [id number] [address] [place] [address] 15 Feb, 2015 Major depression, recurrent 296.30 ; Generalized anxiety disorder 300.02 and No condition on [place] II V71.[address] [id number] [place] [address] [id number] 03 Feb, 2015 Skin tag 701.9 [facility] [address] [address] Feb, [facility] [address] [place] [id number] [address] [place] [address] Jan, Depression, major, recurrent , moderate 296.32 [id number] [place] [address] [id number] Jan, Nausea and vomiting 787.01 ; Rib pain on right side 786.50 and Fall on or from sidewalk curb E880.1 [facility] [id number] [place] [address] Jan, [facility] [address] [place] [id number] [address] [place] [address] Jan, Major depressive disorder, r ecurrent episode, in partial or unspecified remission 296.35 and Anxiety state, unspecified 300.[address] [id number][place] [id number] Jan, [facility] [address] [place] [id number] [address] [place] [address] Jan, Depression, major, recurrent , moderate 296.32 [facility] [address] [place] [id number] [address] [place] [address] Jan, Major depression, recurrent 296.30 ; No condition on [place] II V71.09 and No condition on axis III V71.09 [facility] [address] [id number][place] [id number] Jan, Drug-induced nausea and vomiting 787.[address] [id number] [address] [place] [address] Jan, Depression, major, recurrent , moderate 296.32 [place] [id number] [address] [place] [address] Dec, Depression, major, recurrent , moderate 296.32 [facility] [address] [facility] [address] [id number] [id number] Dec, Morbid obesity 278.01 ; Metabolic syndro me 277.7 ; Hyperlipemia 272.4 ; Benign essential hypertension 401.1 ; Dietary counseling V65.3 ; Exercise counseling V65.41 and Inflamed skin tag 701.9 [place] [id number] [address] [place] [address] Dec, Depression, major, recurrent , moderate 296.32 [place] [id number] [address] [place] [address] Dec, [place] [id number] [address] [place] [address] Dec, Major depression, recurrent 296.30 ; Anxiety, generalized 300.02 and No condition on [place] II V71.09 [place] [id number] [address] [place] [address] Dec, Depression, major, recurrent , moderate 296.32 [place] [id number] [address] [place] [address] Dec, Major depressive disorder, r ecurrent episode, moderate 296.32 [place] [id number] [address] [place] [address] Dec, Depression, major, recurrent , moderate 296.32 [place] [id number] [address] [place] [phone] Dec, Depression, major, recurrent , moderate 296.32 [place] [address] [address] Dec, Depression, major, recurrent , moderate 296.32 [place] [address] [place] [id number] [place] [address] Dec, Depression, major, recurrent , moderate 296.32 [place] [address] [address] Nov, Depression, major, recurrent , moderate 296.32 [place] [address] [address] Nov, Major depression 296.20 ; So cial phobia 300.23 and No condition on [place] II V71.09 [place] [address] [address] Nov, Depression, major, recurrent , moderate 296.32 [place] [address] [address] Nov, Major depressive disorder, r ecurrent episode, moderate 296.32 and Generalized anxiety disorder 300.02 [place] [address] [address] Nov, Depression, major, recurrent , moderate 296.32 [place] [address] [address] Nov, Depression, major, recurrent , moderate 296.32 [place] [address] [address] October, Generalized anxiety disorder 300.02 ; No condition on [place] II V71.09 and Major depressive disorder, recurrent 296.30 [place] [address] [place] [id number] [place] [address] 14 Sep, 2014 [place] [address] [address] Sep, [facility] [address] [id number] [address] [place] [address], [place] [address] 24 Aug, 2014 [facility] [address] [id number] [address] [place] [address], [place] [address] 24 Aug, 2014 [facility] [address] [id number] [address] [place] [address], [place] [address] 23 Aug, 2014 [facility] [address] [id number] [address] [place] [address], [place] [address] 23 Aug, 2014 [facility] [address] [id number] [address] [place] [address], [place] [address] 20 Aug, 2014 [facility] [address] [id number] [address] [place] [address], [place] [address] 20 Aug, 2014 [facility] [address] [id number] [address] [place] [address], [place] [address] 20 Aug, 2014 [facility] [address] [id number] [address] [place] [address], [place] [address] 20 Aug, 2014 [facility] [address] [id number] [address] [place] [address], [place] [address] 13 Aug, 2014 [facility] [address] [id number] [address] [place] [address], [place] [address] 13 Aug, 2014 [facility] [address] [id number] [address] [place] [address], [place] [address] 13 Aug, 2014 [facility] [address] [id number] [address] [place] [address], [place] [address] 13 Aug, 2014 [facility] [address] [id number] [address] [place] [address], [place] [address] 12 Aug, 2014 [facility] [address] [id number] [address] [place] [address], [place] [address] 12 Aug, 2014 [facility] [address] [id number] [address] [place] [address], [place] [address] 10 Aug, 2014 [facility] [address] [id number] [address] [place] [address], [place] [address] Aug, [facility] [address] [id number] [address] [place] [address], [place] [address] Aug, [facility] [address] [id number] [address] [place] [address], [place] [address] Aug, [facility] [address] [id number] [address] [place] [address], [place] [address] Jul, [facility] [address] [id number] [address] [place] [address], [place] [address] Jul, [facility] [address] [id number] [address] [place] [address], [place] [address] Jul, [facility] [address] [id number] [address] [place] [address], [place] [address] Jul, [facility] [address] [id number] [address] [place] [address], [place] [address] Jul, [facility] [address] [id number] [address] [place] [address], [place] [address] Jul, [facility] [address] [id number] [address] [place] [address], [place] [address] Jun, [facility] [address] [id number] [address] [place] [address], [place] [address] Jun, [facility] [address] [id number] [address] [place] [address], [place] [address] Jun, [facility] [address] [id number] [address] [place] [address] Jun, [facility] [address] [id number] [address] [place] [address] Jun, [facility] [address] [id number] [address] [place] [address], [place] [address] Jun, [facility] [address] [id number] [address] [place] [address] Jun, [facility] [address] [id number] [address] [place] [address], [place] [address] Jun, [facility] [address] [id number] [address] [place] [address], [place] [address] Jun, [facility] [address] [id number] [address] [place] [address], [place] [address] Jun, [facility] [address] [id number] [address] [place] [address], [place] [address] Jun, [facility] [address] [id number] [address] [place] [address], [place] [address] Jun, [facility] [address] [id number] [id number] Jun, [facility] [address] [id number] [address] [place] [address], [place] [address] Jun, [facility] [address] [id number] [address] [place] [address], [place] [address] Jun, [facility] [address] [id number] [address] [place] [address], [place] [address] Jun, [facility] [address] [id number] [address] [place] [address], [place] [address] May, [facility] [address] [id number] [address] [place] [address], [place] [address] May, [facility] [address] [id number] [address] [place] [address], [place] [address] May, [facility] [address] [id number] [address] [place] [address], [place] [address] May, [facility] [address] [id number] [address] [place] [address], [place] [address] Apr, [facility] [address] [id number] [address] [place] [address], [place] [address] Apr, [facility] [address] [id number] [address] [place] [address], [place] [address] Apr, [facility] [address] [id number] [facility] [address] Apr, [facility] [address] [id number] [address] [place] [address], [place] [address] Apr, [facility] [address] [id number] [address] [place] [address], [place] [address] Apr, [facility] [address] [id number] [address] [place] [address], [place] [address] Apr, [facility] [address] [id number] [address] [place] [address], [place] [address] Apr, [facility] [address] [id number] [address] [place] [address], [place] [address] Apr, [facility] [address] [id number] [address] [place] [address], [place] [address] Apr, [facility] [address] [id number] [address] [place] [address], [place] [address] Apr, [facility] [address] [id number] [address] [place] [address], [place] [address] Apr, [facility] [address] [id number] [address] [place] [address], [place] [address] Apr, [facility] [address] [id number] [address] [place] [address], [place] [address] Apr, [facility] [address] [id number] [address] [place] [address] Apr, [facility] [address] [id number] [address] [place] [address], [place] [address] Apr, [facility] [address] [id number] [address] [place] [address], [place] [address] Apr, [facility] [address] [id number] [address] [place] [address], [place] [address] Apr, [facility] [address] [id number] [address] [place] [address], [place] [address] Apr, [facility] [address] [id number] [address] [place] [address], [place] [address] Apr, [facility] [address] [id number] [address] [place] [address], [place] [address] Mar, [facility] [address] [id number] [address] [place] [address], [place] [address] Mar, [facility] [address] [id number] [address] [place] [address], [place] [address] Mar, [facility] [address] [id number] [address] [place] [address], [place] [address] Mar, [facility] [address] [id number] [address] [place] [address], [place] [address] Mar, [facility] [address] [id number] [address] [place] [address], [place] [address] Mar, [facility] [address] [id number] [address] [place] [address], [place] [address] Mar, [facility] [address] [id number] [address] [place] [address], [place] [address] Mar, [facility] [address] [id number] [address] [place] [address], [place] [address] Mar, [facility] [address] [id number] [address] [place] [address], [place] [address] Mar, [facility] [address] [id number] [address] [place] [address], [place] [address] Feb, [facility] [address] [id number] [address] [place] [address], [place] [address] Feb, [facility] [address] [id number] [address] [place] [address], [place] [address] Feb, [facility] [address] [id number] [address] [place] [address], [place] [address] Feb, [facility] [address] [id number] [address] [place] [address] Jan, [facility] [address] [id number] [facility] [place] [address] Jan, [facility] [address] [id number] [address] [place] [address] Jan, [facility] [address] [id number] [address] [place] [address], [place] [address] Jan, [facility] [address] [id number] [address] [place] [address], [place] [address] Jan, [facility] [address] [id number] [address] [place] [address], [place] [address] Jan, [facility] [address] [id number] [address] [place] [address], [place] [address] Dec, [facility] [address] [id number] [address] [place] [address], [place] [address] Dec, [facility] [address] [id number] [address] [place] [address], [place] [address] Nov, [facility] [address] [id number] [address] [place] [address], [place] [address] Nov, [facility] [address] [id number] [address] [place] [address], [place] [address] Nov, [facility] [address] [id number] [address] [place] [address], [place] [address] Nov, [facility] [address] [id number] [address] [place] [address], [place] [address] Nov, [facility] [address] [id number] [address] [place] [address], [place] [address] Nov, [facility] [address] [id number] [address] [place] [address], [place] [address] Sep, [facility] [address] [id number] [address] [place] [address], [place] [address] Sep, [facility] [address] [id number] [address] [place] [address], [place] [address] Sep, [facility] [address] [id number] [address] [place] [address], [place] [address] Sep, [facility] [address] [id number] [address] [place] [address], [place] [address] Aug, [facility] [address] [id number] [address] [place] [address], [place] [address] Aug, [facility] [address] [id number] [address] [place] [address], [place] [address] Jul, [facility] [address] [id number] [address] [place] [address], [place] [address] Jul, [facility] [address] [id number] [address] [place] [address], [place] [address] Jun, [facility] [address] [id number] [address] [place] [address], [place] [address] Jun, [facility] [address] [id number] [address] [place] [address], [place] [address] Jun, [facility] [address] [id number] [address] [place] [address], [place] [address] Jun, [facility] [address] [id number] [address] [place] [address], [place] [address] May, [facility] [address] [id number] [address] [place] [address], [place] [address] 24 May, 2013 [facility] [address] [id number] [address] [place] [address], [place] [address] May, [facility] [address] [id number] [address] [place] [address], [place] [address] May, [facility] [address] [id number] [address] [place] [address], [place] [address] May, [facility] [address] [id number] [address] [place] [address], [place] [address] May, [facility] [address] [id number] [address] [place] [address], [place] [address] Apr, [facility] [address] [id number] [address] [place] [address], [place] [address] Apr, [facility] [address] [id number] [address] [place] [address], [place] [address] Apr, [facility] [address] [id number] [address] [place] [place] [address], [place] [address] Apr, [facility] [address] [id number] [address] [place] [address], [place] [address] Mar, [facility] [address] [id number] [address] [place] [address], [place] [address] Mar, [facility] [address] [id number] [address] [place] [address], [place] [address] Mar, [facility] [address] [id number] [address] [place] [address], [place] [address] Mar, [facility] [address] [id number] [address] [place] [address], [place] [address] Feb, [facility] [address] [id number] [place] [id number] Jan, [facility] [address] [id number] [address] [place] [address], [place] [address] Jan, [facility] [address] [id number] [address] [place] [address], [place] [address] Dec, [facility] [address] [id number] [address] [place] [address], [place] [address] Dec, [facility] [address] [id number] [address] [place] [address], [place] [address] Dec, [facility] [address] [id number] [place] [id number] Dec, [facility] [address] [id number] [address] [place] [id number] 17 Nov, 2012 [facility] [address] [id number] [address] [place] [phone] Nov, [facility] [address] [id number] [address] [place] [phone] Nov, [facility] [address] [id number] [address] [place] [id number] Nov, [facility] [address] [id number] [address] [place] [id number] Nov, [facility] [address] [id number] [address] [place] [phone] October, [facility] [address] [facility] [id number] [address] [place] [phone] October, [facility] [address] [id number] [address] [place] [id number] Aug, [facility] [address] [id number] [address] [place] [id number] Nov, IMMUNIZATIONS No Known Immunizations SOCIAL HISTORY Never Assessed REASON FOR VISIT PLAN OF CARE VITAL SIGNS Height 72 in 2014-07-14 Weight 443 lbs 2014-07-14 Temperature 97.9 degrees Fahrenheit 2014-07-14 Heart Rate 80 bpm 2014-07-14 Respiratory Rate 18 2014-07-14 Blood pressure systolic 130 mmHg 2014-07-14 Blood pressure diastolic 70 mmHg 2014-07-14 MEDICATIONS Unknown Medications RESULTS No Results PROCEDURES [...] with Perse veration Surgical History EGD- Esophagus arturo- ANGUIANO 2014 Surgical History gastric sleeve 03/2016 Hospitalization History gastric sleeve Hospitalization History [facility] Trouble with left shoulder blade 08/2017
--- OUTSIDE RECORDS SUMMARY | 2019-11-29 09:20 | XMS REPORT ---
Author Author Curt Daniel Doctor Organization [facility] Address Unknown Phone Unavailable Care Team Providers Care Fact Checker Name Role Phone Migration, Doctor Unavailable Unavailable PROBLEMS Type Condition ICD9-CM Code [id number] Code Onset Dates Condition S tatus SNOMED Code Problem Insomnia G47.00 Active 948425436 Problem Benign essential hypertension I10 Active 3201468 Problem Hyperlipemia E78.5 Active 2780690 4 Problem Edema R60.9 Active 000388967 Problem Morbid obesity E66.01 Active 49622 6002 Problem Severe episode of recurrent major depressive disorder, without psychotic features F33.2 Active 27448581 Problem Vitamin D deficiency E55.9 Active 11735118 Problem Mixed obsessional thoughts and acts F42.2 Active 23482640 Problem Chronic fatigue R53.82 Active 8422 9001 Problem Metabolic syndrome E88.81 Active 2 07799741 Problem Other chronic pain G89.29 Active 8 7210786 Problem Renal insufficiency N28.9 Active 613880046 Problem BMI 45.0-49.9, adult Z68.42 Active 349444343 Problem DANIELA (generalized anxiety disorder) F41.1 Active 88676126 Problem Sciatica, right side M54.31 Active 922060665032926 Problem 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 [address] [facility] [facility] [address] [id number] [place] [id number] Dec, [address] [id number], [place] [id number] Nov, [facility] [address] [facility] [id number] [address] [place] [phone] Nov, [facility] [address] [facility] [id number] [address] [place] [phone] Nov, [facility] [address] [facility] [id number] [address] [place] [phone] Nov, DANIELA (generalized anxiety dis order) F41.1 ; Severe episode of recurrent major depressive disorder, without psychotic features F33.2 ; Mixed obsessional thoughts and acts F42.2 and 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 [facility] [address] [id number], [place] [id number] Nov, Morbid obesity E66.01 [facility] [address] [facility] [id number] [address] [place] [phone] Nov, [facility] [address] [facility] [id number] [address] [place] [id number] Nov, DANIELA (generalized anxiety dis order) F41.1 ; Mixed obsessional thoughts and acts F42.2 ; Severe episode of recurrent major depressive disorder, without psychotic features F33.2 and Dependent personality disorder F60.[address] [id number], [place] [id number] October, Morbid obesity E66.[address] [id number], [place] [id number] October, Benign essential hypertension I10 and Mo rbid obesity E66.[address] [id number], [place] [id number] October, [facility] [address] [facility] [id number] [address] [place] [address] October, Severe episode of recurrent major depressive disorder, without psychotic features F33.[address] [id number], [place] [id number] October, Morbid obesity E66.[address] [id number], [place] [id number] October, [facility] [address] [place] [id number] [address] [place] [address] October, Severe episode of recurrent major depressive disorder, without psychotic features F33.2 ; DANIELA (generalized anxiety disorder) F41.1 ; Mixed obsessional thoughts and acts F42.2 and Dependent personality disorder F60.[address] [id number], [place] [id number] October, Morbid obesity E66.01 [facility] [address] [place] [id number] [address] [place] [address] [id number] Sep, Dental examination Z01.[address] [id number] [place] [address] [id number] Sep, [facility] [address] [place] [id number] [address] [place] [phone] Sep, Sore in mouth K13.79 and Mor bid obesity E66.01 [facility] [address] [place] [id number] [address] [place] [phone] Sep, Dental examination Z01.20 [facility] [address] [place] [id number] [address] [place] [address] Sep, Anxiety disorder, unspecifie d F41.[address] [id number], [place] [id number] Sep, Mouth ulcer K12.[address] [id number], [place] [id number] Sep, Morbid obesity E66.[address] [id number], [place] [id number] Sep, Allergic rhinitis, unspecified seasonali ty, unspecified trigger J30.9 and Shortness of breath R06.[address] [id number], [place] [id number] Sep, 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 [facility] [place] [address] [place] [address] AVE [id number], [place] [id number] Aug, Mouth abscess K12.2 ; Mouth ulcer K12.1 ; Bloating R14.0 and Morbid obesity E66.01 [facility] [place] [address] [place] [address] AVE [id number], [place] [id number] Aug, [facility] [address] [id number], [place] [id number] Aug, [facility] [address] [id number], [place] [id number] Jul, Major depressive disorder, recurrent, mo derate F33.1 ; Abscess of arm, left L02.414 ; BMI 45.0-49.9, adult Z68.42 and Morbid obesity E66.01 [facility] [address] [id number], [place] [id number] Jul, [facility] [address] [id number], [place] 115061253 Jul, [facility] [address] [id number], [place] [id number] Jun, Pain in right knee M25.561 and Other chr onic pain G89.29 [facility] [address] [id number], [place] [id number] Jun, Benign essential hypertension I10 ; BMI 45.0-49.9, adult Z68.42 ; Morbid obesity E66.01 ; Vitamin D deficiency E55.9 ; Insomnia G47.00 ; 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 ; Edema R60.9 ; Recurrent major depressive disorder, in partial remission F33.41 ; Chronic fatigue R53.82 ; Acute pain of right knee M25.561 ; Metabolic syndrome E88.81 and Irritable mood R45.4 [facility] [address] [facility] [id number] [place] [address] Jun, [address] [id number], [place] [id number] Jun, Irritable mood R45.4 [facility] [address] [facility] [id number] [address] [place] [phone] May, [facility] [address] [facility] [id number] [address] [place] [phone] May, [facility] [address] [facility] [id number] [address] [place] [address] May, Recurrent major depressive d isorder, in partial remission F33.41 ; Mixed obsessional thoughts and acts F42.2 ; 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 and BMI 45.0-49.9, adult Z68.42 [facility] [address] [facility] [id number] [address] [place] [phone] Apr, [place] [address] [place] [id number] [address] [place] [phone] Apr, [facility] [address] [facility] [id number] [address] [place] [phone] Apr, [facility] [address] [facility] [id number] [address] [place] [address] Apr, [facility] [address] [facility] [id number] [address] [place] [address] Mar, Mixed obsessional thoughts a nd acts F42.2 ; Recurrent major depressive disorder, in partial remission F33.41 ; DANIELA (generalized anxiety disorder) F41.1 and BMI 45.0-49.9, adult Z68.[address] [place] [address] [id number], [place] [id number] Mar, [id number] [place] [address] [id number] Mar, BMI 45.0-49.9, adult Z68.42 ; Instabilit y of right knee joint M25.361 and Rash R21 [place] [address] [facility] [id number] [address] [place] [address] Jan, Recurrent major depressive d isorder, in partial remission F33.41 ; Mixed obsessional thoughts and acts F42.2 and BMI 45.0-49.9, adult Z68.42 [facility] [address] [id number], [place] [id number] Jan, [facility] [address] [id number], [place] [id number] Jan, Benign essential hypertension I10 ; BMI 45.0-49.9, adult Z68.42 ; Metabolic syndrome E88.81 and Allergic rhinitis, unspecified seasonality, unspecified trigger J30.9 [place] [address] [facility] [id number] [address] [place] [address] Dec, DANIELA (generalized anxiety dis order) F41.1 and Depressive disorder, not elsewhere classified F32.9 [facility] [address] [id number], [place] [id number] Dec, Recurrent major depressive disorder, in partial remission F33.41 [facility] [address] [id number], [place] [id number] Dec, [facility] [id number] [place] [address] [id number] Nov, [facility] [address] [id number], [place] [id number] Nov, Recurrent major depressive disorder, in partial remission F33.41 [place] [address] [facility] [id number] [address] [place] [phone] Nov, Recurrent major depressive d isorder, in partial remission F33.41 ; Mixed obsessional thoughts and acts F42.2 ; DANIELA (generalized anxiety disorder) F41.1 and BMI 45.0-49.9, adult Z68.42 [facility] [address] [id number], [place] [id number] Nov, [facility] [address] [id number], [place] [id number] Nov, Other conjunctivitis of both eyes H10.89 and Sciatica, right side M54.31 [facility] [address] [id number], [place] [id number] Nov, [facility] [address] [id number], [place] [id number] Nov, [facility] [address] [id number], [place] [id number] October, [facility] [id number], [place] [id number] October, [facility] [address] [facility] [id number] [place] [address] October, BMI 45.0-49.9, adult Z68.42 ; Mixed obsessional thoughts and acts F42.2 ; Recurrent major depressive disorder, in partial remission F33.41 and DANIELA (generalized anxiety disorder) F41.1 [facility] [address] [id number], [place] [id number] October, Benign essential hypertension I10 ; Morb id obesity E66.01 and BMI 45.0-49.9, adult Z68.42 [facility] [address] [id number], [place] [id number] Sep, [facility] [address] [id number], [place] [id number] Sep, [facility] [address] [id number], [place] [id number] Sep, [facility] [address] [id number], [place] [id number] Sep, Hospital discharge follow-up Z09 ; Aller gic rhinitis, unspecified seasonality, unspecified trigger J30.9 and Shortness of breath R06.02 [facility] [address] [id number], [place] [id number] Sep, Recurrent major depressive disorder, in partial remission F33.41 [facility] [address] [id number], [place] [id number] 15 Aug, 2017 Irritable mood R45.4 [place] [address] [place] [id number] [address] [place] [phone] 09 Aug, [address] [id number] [place] [address] [id number] Jul, Benign essential hypertension I10 ; Robert a R60.9 and Impacted cerumen of left ear H61.22 [place] [address] [facility] [id number] [address] [place] [phone] 14 Jul, 2017 Major depression F32.9 ; Rec urrent major depressive disorder, in partial remission F33.41 and Anxiety F41.9 [place] [address] [facility] [id number] [address] [place] [address] Jun, Major depression F32.9 ; Rec urrent major depressive disorder, in partial remission F33.41 and Anxiety F41.[address] [id number], [place] [id number] Jun, Major depression F32.9 ; Morbid obesity E66.01 ; Irritable mood R45.4 ; Hand weakness R29.898 and Vitamin D deficiency E55.[address] [id number], [place] [id number] Jun, [address] [id number], [place] [id number] May, Major depression F32.9 [place] [address] [facility] [id number] [address] [place] [phone] May, Major depression F32.[address] [id number], [place] [id number] May, BMI 50.0-59.9, adult Z68.43 ; Major depr ession F32.9 ; Anxiety F41.9 ; Hypertrophic toenail L60.2 and Pain of left great toe M79.[address] [facility] [address] [id number], [place] [id number] May, Recurrent major depressive disorder, in partial remission F33.41 [facility] [address] [facility] [id number] [address] [place] [phone] Apr, [facility] [address] [id number], [place] [id number] Apr, [facility] [address] [facility] [id number] [address] [place] [phone] Apr, Major depression F32.9 [facility] [id number] [place] [address] [id number] Apr, Severe episode of recurrent major depres sive disorder, without psychotic features F33.2 ; Anxiety F41.9 and Insomnia G47.00 [facility] [address] [id number], [place] [id number] Apr, [place] [address] [place] [id number] [address] [place] [address] Apr, [facility] [address] [id number], [place] [id number] Apr, [facility] [address] [id number], [place] [id number] Mar, [facility] [address] [id number], [place] [id number] Mar, Allergic conjunctivitis of both eyes H10 .13 [facility] [address] [facility] [id number] [address] [place] [address] Mar, Major depression F32.9 [facility] [address] [id number], [place] [id number] Mar, Metabolic syndrome E88.81 ; History of g astric bypass Z98.890 ; Benign essential hypertension I10 and Allergic conjunctivitis of both eyes H10.13 [facility] [address] [facility] [id number] [address] [place] [address] Mar, Major depression F32.9 [facility] [address] [facility] [address] [id number], [place] [id number] Feb, [place] [address] [facility] [id number] [address] [place] [address] Feb, Major depression F32.[address] [id number] [place] [address] [id number] Feb, Subacute maxillary sinusitis J01.00 and Bronchitis J40 [place] [address] [facility] [id number] [address] [place] [address] Feb, Major depressive disorder, r ecurrent, moderate F33.1 [facility] [address] [place] [address] AVE [id number] [place] [address] [id number] Jan, [address] [id number] [place] [address] [id number] Jan, Acute non-recurrent maxillary sinusitis J01.00 and Skin tag L91.[address] [id number] [place] [address] [id number] Jan, Cough R05 and Sinus congestion R09.[address] [id number] [place] [address] [id number] Jan, [address] [id number] [place] [address] [id number] Jan, Benign essential hypertension I10 ; Hist ory of gastric bypass Z98.890 and Nausea and vomiting in adult R11.2 [place] [address] [facility] [id number] [address] [place] [address] Jan, Major depressive disorder, r ecurrent, moderate F33.1 [place] [address] [facility] [id number] [address] [place] [phone] Dec, Insomnia G47.00 ; Recurrent major depressive disorder, in partial remission F33.41 and Morbid obesity E66.[address] [id number] [place] [address] [id number] Dec, [address] [id number], [place] [id number] Dec, Chronic bacterial conjunctivitis of left eye H10.[address] [id number], [place] [id number] Nov, [address] [id number], [place] [id number] Nov, Dental examination Z01.[address] [id number] [place] [address] [id number] Nov, Benign essential hypertension I10 ; Hist ory of gastric bypass Z98.890 and Nausea and vomiting in adult R11.2 [place] [id number] [address] [place] [address] Nov, Major depressive disorder, r ecurrent, moderate F33.1 ; Generalized anxiety disorder F41.1 and Insomnia due to other mental disorder F51.05 [place] [address] [place] [id number] [address] [place] [address] Nov, Recurrent major depressive d isorder, in partial remission F33.41 ; Insomnia G47.00 and Morbid obesity E66.01 [facility] [id number] [place] [address] S [id number] October, Abscess of left arm L02.414 [place] [id number] [address] [place] [address] October, Morbid obesity E66.01 ; Lida r depression F32.9 and Recurrent major depressive disorder, in partial remission F33.[address] [id number], [place] [id number] Sep, Benign essential hypertension I10 ; Morb id obesity E66.01 ; S/P gastric bypass Z98.84 ; Abscess L02.91 and Chronic bacterial conjunctivitis of left eye H10.[address] [id number], [place] [id number] 17 Apr, 2017 Dental examination Z01.20 [place] [address] [facility] [id number] [address] [place] [address] Sep, Morbid obesity E66.01 ; Lida r depression F32.9 and Recurrent major depressive disorder, in partial remission F33.41 [place] [address] [facility] [id number] [address] [place] [address] Jul, [place] [address] [place] [id number] [address] [place] [id number] Jul, Major depressive disorder, r ecurrent, moderate F33.1 [place] [address] [place] [id number] [place] [address] Jul, Major depressive disorder, r ecurrent, moderate F33.1 and Generalized anxiety disorder F41.[address] [place] [id number] [place] [address] [id number] Jul, Cough R05 [place] [address] [place] [id number] [address] [place] [address] Jul, Morbid obesity E66.01 ; Lida r depression F32.9 and Recurrent major depressive disorder, in partial remission F33.[address] [place] [id number] [place] [address] [id number] Jul, [place] [address] [id number], [place] [id number] Jul, [place] [id number] [place] [address] [id number] Jul, Gastroenteritis K52.9 and Cough R05 [address] [id number] [place] [address] [id number] Jun, Acute bacterial conjunctivitis of left e ye H10.32 [place] [address] [address] [facility] [id number] [address] [place] [phone] Jun, [place] [address] [place] [id number] [address] [place] [phone] Jun, Recurrent major depressive d isorder, in partial remission F33.41 [facility] [address] [facility] [id number] [address] [place] [address] May, Major depression F32.9 and M orbid obesity E66.01 [facility] [address] [facility] [id number] [address] [place] [phone] May, [place] [address] [id number], [place] [id number] May, Thrush B37.0 [facility] [address] [facility] [id number] [address] [place] [address] Apr, Major depressive disorder, r ecurrent, moderate F33.1 [place] [address] [facility] [id number] [address] [place] [address] Apr, Insomnia G47.00 ; Major depr ession F32.9 and Recurrent major depressive disorder, in partial remission F33.41 [place] [address] [facility] [id number] [address] [place] [address] Apr, [place] [address] [address] [facility] [id number] [address] [place] [address] Apr, Major depression F32.9 and R ecurrent major depressive disorder, in partial remission F33.[address] [id number], [place] [id number] Mar, Benign essential hypertension I10 ; Morb id obesity E66.01 ; Impacted cerumen of both ears H61.23 ; Laceration of finger of right hand, initial encounter S61.219A and Encounter for immunization Z23 [facility] [address] [facility] [id number] [address] [place] [id number] Mar, [place] [address] [address] [facility] [id number] [address] [place] [id number] Mar, [place] [address] [address] [facility] [id number] [address] [place] [phone] Mar, [facility] [address] [id number] [id number] Feb, Nausea R11.0 ; Blood in the stool K92.1 and Benign essential hypertension I10 [facility] [address] [facility] [id number] [address] [place] [id number] Feb, Major depression F32.9 and R ecurrent major depressive disorder, in partial remission F33.41 [facility] [address] [id number][place] [id number] Feb, [facility] [address] [id number] [id number] Feb, Recurrent major depressive disorder, in partial remission F33.41 [facility] [address] [id number] [id number] Jan, [facility] [address] [id number] [id number] Jan, Benign essential hypertension I10 ; Robert a R60.9 and Hyperlipidemia, unspecified hyperlipidemia type E78.5 [facility] [address] [id number] [id number] Jan, Recurrent major depressive disorder, in partial remission F33.41 [place] [facility] [address] [facility] [id number] [place] [id number] Jan, [facility] [address] [id number] [id number] Jan, [facility] [address] [id number][place] [id number] Jan, [facility] [address] [facility] [id number] [address] [place] [address] Jan, [facility] [address] [facility] [id number] [address] [place] [address] Dec, [facility] [address] [facility] [id number] [address] [place] [address] Nov, [facility] [address] [facility] [id number] [address] [place] [address] Nov, Major depression F32.9 [facility] [address] [facility] [id number] [address] [place] [address] Nov, [facility] [address] [facility] [id number] [address] [place] [address] Nov, [place] [address] [facility] [id number] [address] [place] [address] Nov, Major depressive disorder, r ecurrent episode, mild F33.0 and Anxiety F41.[id number] [place] [id number] Nov, [address] [id number] [place] [address] [id number] October, Left elbow pain M25.522 and Other season al allergic rhinitis J30.[address] [id number] [place] [address] [id number] October, [place] [address] [address] [facility] [id number] [address] [place] [address] October, Major depressive disorder, r ecurrent, moderate F33.1 [place] [address] [address] [facility] [id number] [address] [place] [address] October, Major depression F32.9 [place] [address] [address] [place] [id number] [address] [place] [address] Sep, [place] or callus L84 and Onych omycosis B35.1 [place] [address] [address] [facility] [id number] [address] [place] [address] Sep, Major depressive disorder, r ecurrent, moderate F33.1 [place] [address] [address] [facility] [id number] [address] [place] [address] Sep, Major depression F32.9 [place] [address] [address] [facility] [id number] [address] [place] [address] Sep, Moderate episode of recurren t major depressive disorder F33.1 [facility] [address] [id number][place] [id number] Sep, Muscle strain T14.8 [facility] [address] [facility] [id number] [address] [place] [address] Aug, Major depression F32.9 [facility] [address] [facility] [id number] [address] [place] [address] Aug, Major depression F32.9 [facility] [address] [facility] [id number] [address] [place] [address] Jul, Morbid obesity E66.01 and Ma cora depression F32.9 [facility] [address] [facility] [id number] [address] [place] [address] Jul, Depression, major, recurrent , moderate F33.1 [facility] [id number] [place] [address] [id number] Jul, [facility] [address] [facility] [id number] [address] [place] [phone] Jul, [facility] [address] [facility] [id number] [address] [place] [address] Jul, Major depression F32.9 and M orbid obesity E66.01 [facility] [address] [place] [address] AVE [id number][place] [id number] Jul, Type II diabetes mellitus E11.9 ; Callus of foot L84 ; Benign essential hypertension I10 and Renal insufficiency N28.9 [facility] [address] [facility] [id number] [address] [place] [address] Jul, Depression, major, recurrent , moderate F33.1 [facility] [address] [facility] [id number] [address] [place] [address] Jul, Major depression F32.9 [facility] [address] [facility] [id number] [address] [place] [id number] Jul, [place] [address] [id number] [place] [address] Jun, Major depression F32.9 [place] [address] [address] [place] [id number] [address] [place] [address] Jun, Major depressive disorder, r ecurrent, moderate F33.1 [place] [address] [address] Jun, [place] [address] [address] [place] [id number] [place] [address] Jun, Major depressive disorder, r ecurrent, moderate F33.1 and Major depression F32.[address] [place] [id number] [place] [address] [id number] Jun, Type II diabetes mellitus E11.9 [place] [address] [address] [place] [id number] [address] [place] [address] Jun, Depression, major, recurrent , moderate F33.1 [place] [address] [address] [place] [id number] [address] [place] [id number] May, Major depressive disorder, r ecurrent, moderate F33.1 [place] [address] [address] [place] [id number] [address] [place] [address] May, [place] [address] [id number][place] [id number] May, Edema R60.9 [place] [address] [address] [place] [id number] [address] [place] [address] May, Insomnia G47.00 and Major de pression F32.9 [facility] [address] [id number][place] [id number] 15 May, 2015 Morbid obesity E66.01 ; Edema R60.9 ; Sh ortness of breath R06.02 ; Benign essential hypertension I10 and Renal insufficiency N28.9 [facility] [id number] [place] [address] [id number] May, Hyperlipemia 272.4 and Renal insufficien cy N28.9 [place] [address] [address] [facility] [id number] [address] [place] [address] Apr, Major depression F32.9 [place] [address] [facility] [id number] [address] [place] [address] Apr, [place] [address] [address] [facility] [id number] [address] [place] [address] Apr, Major depressive disorder, r ecurrent, moderate F33.1 [facility] [id number] [place] [address] [id number] Apr, Type II diabetes mellitus E11.9 ; Benign essential hypertension I10 ; Edema R60.9 and Renal insufficiency N28.9 [place] [address] [address] [facility] [id number] [address] [place] [address] Mar, Major depressive disorder, r ecurrent, moderate F33.1 [place] [address] [address] [facility] [id number] [address] [place] [address] Mar, [place] [address] [address] [facility] [id number] [address] [place] [address] Mar, Major depression F32.[id number] [place] [address] [id number] Mar, Morbid obesity E66.01 ; Benign essential hypertension I10 and Type II diabetes mellitus E11.9 [place] [address] [address] [facility] [id number] [address] [place] [id number] Feb, Major depressive disorder, r ecurrent, moderate F33.1 [place] [address] [address] [facility] [id number] [address] [place] [address] Feb, Major depressive disorder, r ecurrent episode, in partial or unspecified remission 296.35 ; Anxiety state, unspecified 300.00 and Morbid obesity 278.01 [place] [address] [address] [facility] [id number] [address] [place] [address] Feb, [facility] [address] [facility] [address] [id number][place] [id number] Feb, Vomiting 787.03 and Viral syndrome 079.9 9 [facility] [address] [facility] [id number] [address] [place] [address] Feb, Major depression, recurrent 296.30 ; Generalized anxiety disorder 300.02 and No condition on [place] II V71.09 [id number] [place] [address] [id number] Feb, Skin tag 701.9 [facility] [address] [facility] [id number] [address] [place] [address] Feb, [facility] [address] [place] [id number] [address] [place] [address] Jan, Depression, major, recurrent , moderate 296.32 [facility] [address] [place] [id number] [place] [address] [id number] Jan, Nausea and vomiting 787.01 ; Rib pain on right side 786.50 and Fall on or from sidewalk curb E880.1 [facility] [address] [place] [id number] [address] [place] [address] Jan, [facility] [address] [facility] [id number] [address] [place] [address] Jan, Major depressive disorder, r ecurrent episode, in partial or unspecified remission 296.35 and Anxiety state, unspecified 300.00 [facility] [address] [facility] [id number][place] [id number] Jan, [facility] [address] [facility] [id number] [address] [place] [address] Jan, Depression, major, recurrent , moderate 296.32 [facility] [address] [facility] [id number] [address] [place] [address] Jan, Major depression, recurrent 296.30 ; No condition on Centralia II V71.09 and No condition on axis III V71.[address] [place] [address] [id number][place] [id number] Jan, Drug-induced nausea and vomiting 787.[address] [place] [address] Jan, Depression, major, recurrent , moderate 296.[address] [address] Dec, Depression, major, recurrent , moderate 296.32 [facility] [address] [id number], [place] [id number] Dec, Morbid obesity 278.01 ; Metabolic syndro me 277.7 ; Hyperlipemia 272.4 ; Benign essential hypertension 401.1 ; Dietary counseling V65.3 ; Exercise counseling V65.41 and Inflamed skin tag 701.[address] [address] Dec, Depression, major, recurrent , moderate 296.[address] [address] Dec, [address] [address] Dec, Major depression, recurrent 296.30 ; Anxiety, generalized 300.02 and No condition on Centralia II V71.09 [place] [id number] [address] [place] [address] Dec, Depression, major, recurrent , moderate 296.32 [place] [id number] [address] [place] [address] Dec, Major depressive disorder, r ecurrent episode, moderate 296.32 [place] [id number] [address] [place] [address] Dec, Depression, major, recurrent , moderate 296.[address] [address] Dec, Depression, major, recurrent , moderate 296.32 [facility] [address] [address] Dec, Depression, major, recurrent , moderate 296.32 [facility] [address] [address] Dec, Depression, major, recurrent , moderate 296.32 [place] [address] [address] [place] [id number] Nov, Depression, major, recurrent , moderate 296.32 [place] [address] [address] Nov, Major depression 296.20 ; So cial phobia 300.23 and No condition on Central[place] II V71.09 [place] [address] [address] Nov, Depression, major, recurrent , moderate 296.32 [place] [address] [address] Nov, Major depressive disorder, r ecurrent episode, moderate 296.32 and Generalized anxiety disorder 300.02 [place] [address] [address] Nov, Depression, major, recurrent , moderate 296.32 [place] [address] [address] Nov, Depression, major, recurrent , moderate 296.32 [place] [address] [address] October, Generalized anxiety disorder 300.02 ; No condition on Centralia II V71.09 and Major depressive disorder, recurrent 296.30 [place] [address] [address] Sep, [place] [address] [address] Sep, [facility] [address] [id number] [facility] [place] [address] 24 Aug, 2014 [facility] [address] [id number] [facility] [place] [address] 24 Aug, 2014 [facility] [address] [id number] [facility] [place] [address] 23 Aug, 2014 [facility] [address] [id number] [address] [place] [address], [place] [address] 23 Aug, 2014 [facility] [address] [id number] [address] [place] [address], [place] [address] 20 Aug, 2014 [facility] [address] [id number] [address] [place] [address], [place] [address] 20 Aug, 2014 [facility] [address] [id number] [address] [place] [address], [place] [address] 20 Aug, 2014 [facility] [address] [id number] [address] [place] [address], [place] [address] 20 Aug, 2014 [facility] [address] [id number] [address] [place] [address], [place] [address] 13 Aug, 2014 [facility] [address] [id number] [address] [place] [address], [place] [address] 13 Aug, 2014 [facility] [address] [id number] [address] [place] [address], [place] [address] 13 Aug, 2014 [facility] [address] [id number] [address] [place] [address], [place] [address] 13 Aug, 2014 [facility] [address] [id number] [address] [place] [address], [place] [address] 12 Aug, 2014 [facility] [address] [id number] [address] [place] [address], [place] [address] 12 Aug, 2014 [facility] [address] [id number] [address] [place] [address], [place] [address] 10 Aug, 2014 [facility] [address] [id number] [address] [place] [address], [place] [address] Aug, [facility] [address] [id number] [address] [place] [address], [place] [address] Aug, [facility] [address] [id number] [address] [place] [address], [place] [address] Aug, [facility] [address] [id number] [address] [place] [address], [place] [address] Jul, [facility] [address] [id number] [address] [place] [address], [place] [address] Jul, [facility] [address] [id number] [address] [place] [address], [place] [address] Jul, [facility] [address] [id number] [address] [place] [address], [place] [address] Jul, [facility] [address] [id number] [address] [place] [address], [place] [address] Jul, [facility] [address] [id number] [address] [place] [address], [place] [address] Jul, [facility] [address] [id number] [address] [place] [address], [place] [address] Jun, [facility] [address] [id number] [address] [place] [address], [place] [address] Jun, [facility] [address] [id number] [address] [place] [address], [place] [address] Jun, [facility] [address] [id number] [address] [place] [address], [place] [address] Jun, [facility] [address] [id number] [address] [place] [address], [place] [address] Jun, [facility] [address] [id number] [address] [place] [address], [place] [address] Jun, [facility] [address] [id number] [address] [place] [address], [place] [address] Jun, [facility] [address] [id number] [address] [place] [address], [place] [address] Jun, [facility] [address] [id number] [address] [place] [address], [place] [address] Jun, [facility] [address] [id number] [address] [place] [address], [place] [address] Jun, [facility] [address] [id number] [address] [place] [address], [place] [address] Jun, [facility] [address] [id number] [address] [place] [address], [place] [address] Jun, [facility] [address] [id number] [place] [id number] Jun, [facility] [address] [id number] [address] [place] [address], [place] [address] Jun, [facility] [address] [id number] [address] [place] [address], [place] [address] Jun, [facility] [address] [id number] [address] [place] [address], [place] [address] Jun, [facility] [address] [id number] [address] [place] [address], [place] [address] May, [facility] [address] [id number] [address] [place] [address], [place] [address] May, [facility] [address] [id number] [address] [place] [address], [place] [address] May, [facility] [address] [id number] [address] [place] [address], [place] [address] May, [facility] [address] [id number] [address] [place] [address], [place] [address] Apr, [facility] [address] [id number] [address] [place] [address], [place] [address] Apr, [facility] [address] [id number] [address] [place] [address], [place] [address] Apr, [facility] [address] [id number] [facility] [place] [address] Apr, [facility] [address] [id number] [address] [place] [address], [place] [address] Apr, [facility] [address] [id number] [address] [place] [address], [place] [address] Apr, [facility] [address] [id number] [address] [place] [address], [place] [address] Apr, [facility] [address] [id number] [address] [place] [address], [place] [address] Apr, [facility] [address] [id number] [address] [place] [address], [place] [address] Apr, [facility] [address] [id number] [address] [place] [address], [place] [address] Apr, [facility] [address] [id number] [address] [place] [address], [place] [address] Apr, [facility] [address] [id number] [address] [place] [address], [place] [address] Apr, [facility] [address] [id number] [address] [place] [address], [place] [address] Apr, [facility] [address] [id number] [address] [place] [address], [place] [address] Apr, [facility] [address] [id number] [address] [place] [address], [place] [address] Apr, [facility] [address] [id number] [address] [place] [address], [place] [address] Apr, [facility] [address] [id number] [address] [place] [address], [place] [address] Apr, [facility] [address] [id number] [address] [place] [address], [place] [address] Apr, [facility] [address] [id number] [address] [place] [address], [place] [address] Apr, [facility] [address] [id number] [address] [place] [address], [place] [address] Apr, [facility] [address] [id number] [address] [place] [address], [place] [address] Mar, [facility] [address] [id number] [address] [place] [address], [place] [address] Mar, [facility] [address] [id number] [address] [place] [address], [place] [address] Mar, [facility] [address] [id number] [address] [place] [address], [place] [address] Mar, [facility] [address] [id number] [address] [place] [address], [place] [address] Mar, [facility] [address] [id number] [address] [place] [address], [place] [address] Mar, [facility] [address] [id number] [address] [place] [address], [place] [address] Mar, [facility] [address] [id number] [address] [place] [address], [place] [address] Mar, [facility] [address] [id number] [address] [place] [address], [place] [address] Mar, [facility] [address] [id number] [address] [place] [address], [place] [address] Mar, [facility] [address] [id number] [address] [place] [address] Feb, [facility] [address] [id number] [address] [place] [address], [place] [address] Feb, [facility] [address] [id number] [address] [place] [address], [place] [address] Feb, [facility] [address] [id number] [address] [place] [address], [place] [address] Feb, [facility] [address] [id number] [facility] [place] [address] Jan, [facility] [address] [id number] [address] [place] [address], [place] [address] Jan, [facility] [address] [id number] [address] [place] [address], [place] [address] Jan, [facility] [address] [id number] [address] [place] [address], [place] [address] Jan, [facility] [address] [id number] [address] [place] [address], [place] [address] Jan, [facility] [address] [id number] [address] [place] [address], [place] [address] Jan, [facility] [address] [id number] [address] [place] [address], [place] [address] Dec, [facility] [address] [id number] [address] [place] [address], [place] [address] Dec, [facility] [address] [id number] [address] [place] [address], [place] [address] Nov, [facility] [address] [id number] [address] [place] [address], [place] [address] Nov, [facility] [address] [id number] [address] [place] [address], [place] [address] Nov, [facility] [address] [id number] [address] [place] [address], [place] [address] Nov, [facility] [address] [id number] [address] [place] [address], [place] [address] Nov, [facility] [address] [id number] [address] [place] [address], [place] [address] Nov, [facility] [address] [id number] [address] [place] [address], [place] [address] Sep, [facility] [address] [id number] [address] [place] [address], [place] [address] Sep, [facility] [address] [id number] [address] [place] [address], [place] [address] Sep, [facility] [address] [id number] [address] [place] [address], [place] [address] Sep, [facility] [address] [id number] [address] [place] [address], [place] [address] Aug, [facility] [address] [id number] [address] [place] [address], [place] [address] Aug, [facility] [address] [id number] [address] [place] [address], [place] [address] Jul, [facility] [address] [id number] [address] [place] [address], [place] [address] Jul, [facility] [address] [id number] [address] [place] [address], [place] [address] Jun, [facility] [address] [id number] [address] [place] [address], [place] [address] Jun, [facility] [address] [id number] [address] [place] [address], [place] [id number] Jun, [facility] [address] [id number] [address] [place] [address], [place] [address] Jun, [facility] [address] [id number] [address] [place] [address], [place] [address] May, [facility] [address] [id number] [address] [place] [address], [place] [address] 24 May, 2013 [facility] [address] [id number] [address] [place] [address], [place] [address] May, [facility] [address] [id number] [address] [place] [address], [place] [address] May, [facility] [address] [id number] [address] [place] [address], [place] [address] May, [facility] [address] [id number] [address] [place] [id number] May, [facility] [address] [id number] [address] [place] [address], [place] [address] Apr, [facility] [address] [id number] [address] [place] [phone] Apr, [facility] [address] [id number] [address] [place] [address], [place] [address] Apr, [facility] [address] [id number] [address] [place] [id number] Apr, [facility] [address] [id number] [address] [place] [address], [place] [address] Mar, [facility] [address] [id number] [address] [place] [address], [place] [address] Mar, [facility] [address] [id number] [address] [place] [phone] Mar, [facility] [address] [id number] [address] [place] [address], [place] [address] Mar, [facility] [address] [id number] [address] [place] [phone] Feb, [facility] [address] [id number] [place] [id number] Jan, [facility] [address] [id number] [address] [place] [id number] Jan, [facility] [address] [id number] [address] [place] [id number] Dec, [facility] [address] [id number] [address] [place] [address], [place] [address] Dec, [facility] [address] [id number] [address] [place] [phone] Dec, [facility] [address] [id number] [place] [id number] Dec, [facility] [address] [id number] [address] [place] [phone] 17 Nov, 2012 [facility] [address] [id number] [address] [place] [id number] 14 Nov, 2012 [facility] [address] [id number] [address] [place] [id number] 12 Nov, 2012 [facility] [address] [id number] [address] [place] [id number] Nov, [facility] [address] [id number] [address] [place] [phone] Nov, [facility] [address] [id number] [address] [place] [id number] October, [facility] [address] [id number] [address] [place] [phone] October, [facility] [address] [id number] [address] [place] [id number] Aug, [facility] [address] [id number] [address] [place] [phone] Nov, IMMUNIZATIONS No Known Immunizations SOCIAL HISTORY Never Assessed REASON FOR VISIT [facility] PLAN OF CARE VITAL SIGNS MEDICATIONS Medication Instructions Dosage Frequency Start Date End Date Duration S tatus Hydrochlorothiazide 25 mg 1 Tablet by Oral route 1 paloma e per day Aug, Active Abilify 15 mg 1 tablet by Oral route 1 time per day 17 N 2013 Active metformin 1,000 mg 1 tablet by Oral rou te 2 times per day DIABETIC VISIT IN Aug, Active Lisinopril 10 mg 1 Tablet by Oral route 1 time per day 1 Aug, Active Flonase 50 mcg/actuation inhale 1 spray (50 mcg) in each nostril by intranasal route 2 times per day Nov, Active Tricor 145 mg 1 tablet by Oral route 1 time per day [facility] Aug, Active Atenolol 50 mg 1 tablet by Oral route 1 time per day Aug, Active Flovent HFA 110 mcg/actuation 1-3 Puffs 1 time per day 1 October, Active RESULTS No Results PROCEDURES No Known [...]
--- OUTSIDE RECORDS SUMMARY | 2019-11-29 09:20 | XMS REPORT ---
Author Author Curt Daniel Doctor Organization [facility] Address Unknown Phone Unavailable Care Team Providers Care Tobacco Scrap Sifter Name Role Phone Migration, Doctor Unavailable Unavailable PROBLEMS Type Condition ICD9-CM Code QFD12-MV Code Onset Dates Condition S tatus SNOMED Code Problem Insomnia G47.00 Active 759560284 Problem Morbid obesity E66.01 Active 85884 6002 Problem Hyperlipemia E78.5 Active 3082940 4 Problem Renal insufficiency N28.9 Active 117000942 Problem Benign essential hypertension I10 Active 1938013 Problem Callus of foot L84 Active 37186 1005 Problem Edema R60.9 Active 428026475 Problem Severe episode of recurrent major depressive disorder, without psychotic features F33.2 Active 72504249 Problem Vitamin D deficiency E55.9 Active 84148081 Problem Mixed obsessional thoughts and acts F42.2 Active 62374650 Problem Chronic fatigue R53.82 Active 8422 9001 Problem Metabolic syndrome E88.81 Active 2 56680683 Problem Other chronic pain G89.29 Active 8 8181319 Problem Recurrent major depressive disorder, in partial remission F33.41 Active 21085517 Problem BMI 45.0-49.9, adult Z68.42 Active 037922506 Problem DANIELA (generalized anxiety disorder) F41.1 Active 54906657 Problem Sciatica, right side M54.31 Active [id number] Problem 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 Active 56772477 ALLERGIES No Information ENCOUNTERS Encounter Location Date Diagnosis [facility] [address] [facility] [id number] [place] [address] Nov, [facility] [address] [id number], [place] [id number] October, [facility] [address] [id number], [place] [id number] October, Morbid obesity E66.[address] [facility] [address] [id number], [place] [id number] October, [facility] [address] [facility] [id number] [address] [place] [phone] October, Severe episode of recurrent major depressive disorder, without psychotic features F33.2 ; DANIELA (generalized anxiety disorder) F41.1 ; Mixed obsessional thoughts and acts F42.2 and Dependent personality disorder F60.[address] [id number], [place] [id number] October, Morbid obesity E66.01 [facility] [address] [facility] [id number] [address] [place] [address] [id number] Sep, Dental examination Z01.[id number] [place] [address] [id number] Sep, [facility] [address] [facility] [id number] [address] [place] [phone] Sep, [facility] [address] [facility] [id number] [address] [place] [address] Sep, Dental examination Z01.20 [facility] [address] [facility] [id number] [address] [place] [phone] Sep, Anxiety disorder, unspecifie d F41.[address] [id number], [place] [id number] Sep, Mouth ulcer K12.[address] [id number], [place] [id number] Sep, Morbid obesity E66.[address] [id number], [place] [id number] Sep, Allergic rhinitis, unspecified seasonali ty, unspecified trigger J30.9 and Shortness of breath R06.[address] [id number], [place] [id number] Sep, 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 [id number], [place] [id number] Aug, Mouth abscess K12.2 ; Mouth ulcer K12.1 ; Bloating R14.0 and Morbid obesity E66.01 [facility] [address] [id number], [place] [id number] Aug, [facility] [address] [id number], [place] [id number] Aug, [facility] [address]ender[address] [place] [address] AVE [id number], [place] [id number] Jul, Major depressive disorder, recurrent, mo derate F33.1 ; Abscess of arm, left L02.414 ; BMI 45.0-49.9, adult Z68.42 and Morbid obesity E66.01 [facility] Bender[address] [place] [address] AVE [id number], [place] [id number] Jul, [facility] [place] [address] [place] [address] AV [id number], [place] [id number] Jul, [facility] [place] [address] [place] [address] AVE [id number], [place] [id number] Jun, Pain in right knee M25.561 and Other chr onic pain G89.29 [facility] [place] [address] [place] [address] AVE [id number], [place] [id number] Jun, Benign essential hypertension I10 ; BMI 45.0-49.9, adult Z68.42 ; Morbid obesity E66.01 ; Vitamin D deficiency E55.9 ; Insomnia G47.00 ; 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 ; Edema R60.9 ; Recurrent major depressive disorder, in partial remission F33.41 ; Chronic fatigue R53.82 ; Acute pain of right knee M25.561 ; Metabolic syndrome E88.81 and Irritable mood R45.4 [facility] [address] [place] [id number] [address] [place] [phone] Jun, [facility] OROSCOBROWNLEE [address] [place] [address] AVE [id number], [place] [id number] Jun, Irritable mood R45.4 [facility] [address] [place] [id number] [address] [place] [phone] May, [facility] [address] [facility] [id number] [address] [place] [address] May, [facility] [address] [facility] [id number] [address] [place] [address] May, Recurrent major depressive d isorder, in partial remission F33.41 ; Mixed obsessional thoughts and acts F42.2 ; 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 and BMI 45.0-49.9, adult Z68.42 [facility] [address] [facility] [id number] [address] [place] [phone] 27 Apr, 2018 [facility] [address] [facility] [id number] [address] [place] [address] Apr, [facility] [address] [facility] [id number] [address] [place] [address] Apr, [facility] [address] [facility] [id number] [address] [place] [phone] Apr, [facility] [address] [facility] [id number] [address] [place] [address] Mar, Mixed obsessional thoughts a nd acts F42.2 ; Recurrent major depressive disorder, in partial remission F33.41 ; DANIELA (generalized anxiety disorder) F41.1 and BMI 45.0-49.9, adult Z68.42 [facility] [address] [id number], [place] [id number] Mar, [facility] [address] [id number], [place] [id number] Mar, BMI 45.0-49.9, adult Z68.42 ; Instabilit y of right knee joint M25.361 and Rash R21 [facility] [address] [facility] [id number] [address] [place] [address] Jan, Recurrent major depressive d isorder, in partial remission F33.41 ; Mixed obsessional thoughts and acts F42.2 and BMI 45.0-49.9, adult Z68.42 [facility] [address] [id number], [place] [id number] Jan, [facility] [address] [id number], [place] [id number] Jan, Benign essential hypertension I10 ; BMI 45.0-49.9, adult Z68.42 ; Metabolic syndrome E88.81 and Allergic rhinitis, unspecified seasonality, unspecified trigger J30.9 [facility] [address] [place] [address] Dec, DANIELA (generalized anxiety dis order) F41.1 and Depressive disorder, not elsewhere classified F32.9 [facility] [address] [id number], [place] [id number] Dec, Recurrent major depressive disorder, in partial remission F33.41 [facility] [address] [id number], [place] [id number] Dec, [facility] [address] [id number], [place] [id number] Nov, [facility] [address] [id number] [place] [address] [id number] Nov, Recurrent major depressive disorder, in partial remission F33.41 [place] [address] [facility] [id number] [address] [place] [address] Nov, Recurrent major depressive d isorder, in partial remission F33.41 ; Mixed obsessional thoughts and acts F42.2 ; DANIELA (generalized anxiety disorder) F41.1 and BMI 45.0-49.9, adult Z68.42 [facility] [address] [id number], [place] [id number] Nov, [facility]yaM LabsBROWNLEE [address] [id number], [place] [id number] Nov, Other conjunctivitis of both eyes H10.89 and Sciatica, right side M54.31 [facility] [address] [id number], [place] [id number] Nov, [facility] [address] [id number], [place] [id number] Nov, [facility] [address] [id number], [place] [id number] October, [facility] [address] [id number], [place] [id number] October, [facility] [address] [facility] [id number] [address] [place] [address] October, BMI 45.0-49.9, adult Z68.42 ; Mixed obsessional thoughts and acts F42.2 ; Recurrent major depressive disorder, in partial remission F33.41 and DANIELA (generalized anxiety disorder) F41.1 [facility] [address] [id number], [place] [id number] October, Benign essential hypertension I10 ; Morb id obesity E66.01 and BMI 45.0-49.9, adult Z68.42 [facility] [address] [id number], [place] [id number] Sep, [facility] [address] [id number], [place] [id number] Sep, [facility] [address] [id number], [place] [id number] Sep, [facility] [address] [id number], [place] [id number] Sep, Hospital discharge follow-up Z09 ; Aller gic rhinitis, unspecified seasonality, unspecified trigger J30.9 and Shortness of breath R06.02 [facility] [address] [id number], [place] [id number] Sep, Recurrent major depressive disorder, in partial remission F33.41 [facility] [address] [id number], [place] [id number] Aug, Irritable mood R45.4 [facility] [address] [facility] [id number] [address] [place] [address] Aug, [facility] [address] [id number], [place] [id number] Jul, Benign essential hypertension I10 ; Robert a R60.9 and Impacted cerumen of left ear H61.22 [place] [address] [facility] [id number] [address] [place] [phone] 14 Jul, 2017 Major depression F32.9 ; Rec urrent major depressive disorder, in partial remission F33.41 and Anxiety F41.9 [place] [address] [facility] [id number] [address] [place] [address] Jun, Major depression F32.9 ; Rec urrent major depressive disorder, in partial remission F33.41 and Anxiety F41.[address] [place] [address] [id number], [place] [id number] Jun, Major depression F32.9 ; Morbid obesity E66.01 ; Irritable mood R45.4 ; Hand weakness R29.898 and Vitamin D deficiency E55.[address] [place] [address] [id number], [place] [id number] Jun, [place] [id number] [place] [address] [id number] May, Major depression F32.9 [place] [address] [facility] [id number] [address] [place] [address] May, Major depression F32.[address] [place] [id number] [place] [address] [id number] May, BMI 50.0-59.9, adult Z68.43 ; Major depr ession F32.9 ; Anxiety F41.9 ; Hypertrophic toenail L60.2 and Pain of left great toe M79.[address] [place] [address] [id number], [place] [id number] May, Recurrent major depressive disorder, in partial remission F33.41 [place] [address] [facility] [id number] [address] [place] [address] Apr, [facility] [address] [id number], [place] [id number] Apr, [facility] [address] [facility] [id number] [address] [place] [address] Apr, Major depression F32.9 [facility] [id number] [place] [address] [id number] Apr, Severe episode of recurrent major depres sive disorder, without psychotic features F33.2 ; Anxiety F41.9 and Insomnia G47.00 [facility] [id number] [place] [address] [id number] Apr, [facility] [address] [place] [id number] [address] [place] [address] Apr, [facility] [id number] [place] [address] [id number] Apr, [facility] [id number] [place] [address] [id number] Mar, [facility] [id number] [place] [address] [id number] Mar, Allergic conjunctivitis of both eyes H10 .13 [facility] [address] [place] [id number] [address] [place] [address] Mar, Major depression F32.9 [facility] [address] [id number], [place] [id number] Mar, Metabolic syndrome E88.81 ; History of g astric bypass Z98.890 ; Benign essential hypertension I10 and Allergic conjunctivitis of both eyes H10.13 [facility] [address] [facility] [id number] [address] [place] [address] Mar, Major depression F32.9 [facility] [address] [id number], [place] [id number] Feb, [facility] [address] [place] [id number] [address] [place] [address] Feb, Major depression F32.9 [facility] [place] [address] [facility] [address] [id number], [place] [id number] Feb, Subacute maxillary sinusitis J01.00 and Bronchitis J40 [facility] [address] [facility] [id number] [address] [place] [address] Feb, Major depressive disorder, r ecurrent, moderate F33.1 [facility] [address] [id number], [place] [id number] Jan, [facility] [place] [facility] [address] [id number] [place] [address] [id number] Jan, Acute non-recurrent maxillary sinusitis J01.00 and Skin tag L91.8 [facility] [address] [id number] [place] [address] [id number] Jan, Cough R05 and Sinus congestion R09.81 [facility] [place] [address] [facility] [address] [id number], [place] [id number] Jan, [facility] [address] [id number] [place] [address] [id number] Jan, Benign essential hypertension I10 ; Hist ory of gastric bypass Z98.890 and Nausea and vomiting in adult R11.2 [place] [address] [place] [id number] [address] [place] [address] Jan, Major depressive disorder, r ecurrent, moderate F33.1 [facility] [address] [facility] [id number] [address] [place] [address] Dec, Insomnia G47.00 ; Recurrent major depressive disorder, in partial remission F33.41 and Morbid obesity E66.01 [facility] [id number] [place] [address] [id number] Dec, [facility] [place] [address] [place] [address] AVE [id number] [place] [address] [id number] Dec, Chronic bacterial conjunctivitis of left eye H10.[address] [id number], [place] [id number] 27 Nov, [address] [id number], [place] [id number] Nov, Dental examination Z01.[address] [id number], [place] [id number] 23 Nov, 2016 Benign essential hypertension I10 ; Hist ory of gastric bypass Z98.890 and Nausea and vomiting in adult R11.2 [facility] [address] [facility] [id number] [address] [place] [phone] 13 Nov, 2016 Major depressive disorder, r ecurrent, moderate F33.1 ; Generalized anxiety disorder F41.1 and Insomnia due to other mental disorder F51.05 [place] [address] [facility] [id number] [address] [place] [address] 12 Nov, 2016 Recurrent major depressive d isorder, in partial remission F33.41 ; Insomnia G47.00 and Morbid obesity E66.01 [facility] [address] [id number] [place] [id number] October, Abscess of left arm L02.414 [facility] [address] [facility] [id number] [address] [place] [address] October, Morbid obesity E66.01 ; Lida r depression F32.9 and Recurrent major depressive disorder, in partial remission F33.[address] [id number], [place] [id number] Sep, Benign essential hypertension I10 ; Morb id obesity E66.01 ; S/P gastric bypass Z98.84 ; Abscess L02.91 and Chronic bacterial conjunctivitis of left eye H10.[address] [id number], [place] [id number] 17 Sep, 2016 Dental examination Z01.20 [facility] [address] [facility] [id number] [address] [place] [address] 11 Sep, 2016 Morbid obesity E66.01 ; Lida r depression F32.9 and Recurrent major depressive disorder, in partial remission F33.41 [facility] [address] [facility] [id number] [address] [place] [address] Jul, [facility] [address] [facility] [id number] [address] [place] [address] Jul, Major depressive disorder, r ecurrent, moderate F33.1 [place] [address] [facility] [id number] [address] [place] [address] Jul, Major depressive disorder, r ecurrent, moderate F33.1 and Generalized anxiety disorder F41.[address] [place] [id number] [place] [address] [id number] Jul, Cough R05 [place] [address] [facility] [id number] [address] [place] [address] Jul, Morbid obesity E66.01 ; Lida r depression F32.9 and Recurrent major depressive disorder, in partial remission F33.41 [facility] [id number] [place] [address] [id number] Jul, [place] [address] [id number] [place] [address] [id number] Jul, [place] [id number] [place] [address] [id number] Jul, Gastroenteritis K52.9 and Cough R05 [place] [id number] [place] [address] [id number] Jun, Acute bacterial conjunctivitis of left e ye H10.32 [facility] [address] [facility] [id number] [address] [place] [address] Jun, [place] [address] [facility] [id number] [address] [place] [address] Jun, Recurrent major depressive d isorder, in partial remission F33.41 [facility] [address] [facility] [id number] [address] [place] [address] May, Major depression F32.9 and M orbid obesity E66.01 [facility] [address] [facility] [id number] [address] [place] [address] May, [facility] [id number] [place] [address] [id number] May, Thrush B37.0 [place] [address] [facility] [id number] [address] [place] [address] Apr, Major depressive disorder, r ecurrent, moderate F33.1 [place] [address] [facility] [id number] [address] [place] [address] Apr, Insomnia G47.00 ; Major depr ession F32.9 and Recurrent major depressive disorder, in partial remission F33.41 [place] [address] [facility] [id number] [address] [place] [address] 11 Apr, 2016 [place] [address] [facility] [id number] [address] [place] [address] 02 Apr, 2016 Major depression F32.9 and R ecurrent major depressive disorder, in partial remission F33.[address] [id number] [place] [address] [id number] Mar, Benign essential hypertension I10 ; Morb id obesity E66.01 ; Impacted cerumen of both ears H61.23 ; Laceration of finger of right hand, initial encounter S61.219A and Encounter for immunization Z23 [facility] [address] [facility] [id number] [address] [place] [phone] Mar, [facility] [address] [facility] [id number] [address] [place] [phone] Mar, [place] [address] [facility] [id number] [address] [place] [address] Mar, [address] [id number], [place] [id number] Feb, Nausea R11.0 ; Blood in the stool K92.1 and Benign essential hypertension I10 [place] [address] [id number] [address] [place] [phone] Feb, Major depression F32.9 and R ecurrent major depressive disorder, in partial remission F33.[address] [facility] [address] [id number], [place] [id number] Feb, [facility] [address] [address] [id number], [place] [id number] Feb, Recurrent major depressive disorder, in partial remission F33.[address] [facility] [address] [id number], [place] [id number] Jan, [facility] [address] [id number], [place] [id number] Jan, Benign essential hypertension I10 ; Robert a R60.9 and Hyperlipidemia, unspecified hyperlipidemia type E78.[address] [facility] [address] [id number], [place] [id number] Jan, Recurrent major depressive disorder, in partial remission F33.41 [facility] [place] [address] [id number] [place], S [id number] Jan, [facility] [address] [id number], [place] [id number] Jan, [facility] [address] [id number], [place] [id number] Jan, [facility] [address] [facility] [id number] [address] [place] [phone] Jan, [facility] [place] [facility] [address] [facility] [id number] [address] [place] [id number] Dec, [facility] [address] [facility] [id number] [address] [place] [id number] Nov, [facility] [place] [facility] [address] [facility] [id number] [address] [place] [id number] Nov, Major depression F32.9 [facility] [address] [facility] [id number] [address] [place] [id number] Nov, [facility] [address] [facility] [id number] [address] [place] [id number] Nov, [facility] [address] [facility] [id number] [address] [place] [phone] Nov, Major depressive disorder, r ecurrent episode, mild F33.0 and Anxiety F41.[address] [facility] [address] [id number] [id number] Nov, [facility] [id number] [place] [id number] October, Left elbow pain M25.522 and Other season al allergic rhinitis J30.2 [place] [id number] [facility] [id number] [place] [id number] October, [facility] [address] [facility] [id number] [address] [place] [id number] October, Major depressive disorder, r ecurrent, moderate F33.1 [facility] [address] [facility] [id number] [address] [place] [address] October, Major depression F32.9 [facility] [address] [facility] [id number] [address] [place] [address] Sep, Corinth or callus L84 and Onych omycosis B35.1 [facility] [address] [facility] [id number] [address] [place] [address] Sep, Major depressive disorder, r ecurrent, moderate F33.1 [facility] [address] [facility] [id number] [address] [place] [address] Sep, Major depression F32.9 [facility] [address] [facility] [id number] [address] [place] [address] Sep, Moderate episode of recurren t major depressive disorder F33.1 [facility] [address] [id number] [id number] Sep, Muscle strain T14.8 [facility] [address] [facility] [id number] [address] [place] [address] Aug, Major depression F32.9 [facility] [address] [facility] [id number] [address] [place] [address] Aug, Major depression F32.9 [facility] [address] [facility] [id number] [address] [place] [address] Jul, Morbid obesity E66.01 and Ma cora depression F32.9 [facility] [address] [facility] [id number] [address] [place] [address] Jul, Depression, major, recurrent , moderate F33.[id number] [place] [address] [id number] Jul, [facility] [address] [facility] [id number] [address] [place] [address] Jul, [facility] [address] [facility] [id number] [address] [place] [address] Jul, Major depression F32.9 and M orbid obesity E66.[id number] [place] [address] [id number] Jul, Type II diabetes mellitus E11.9 ; Callus of foot L84 ; Benign essential hypertension I10 and Renal insufficiency N28.9 [facility] [address] [facility] [id number] [address] [place] [address] Jul, Depression, major, recurrent , moderate F33.1 [facility] [address] [facility] [id number] [address] [place] [address] Jul, Major depression F32.9 [facility] [address] [facility] [id number] [address] [place] [address] Jul, [facility] [address] [facility] [id number] [address] [place] [address] Jun, Major depression F32.9 [facility] [id number] [place] [address] Jun, Major depressive disorder, r ecurrent, moderate F33.1 [place] [id number] [place] [address] Jun, [place] [address] [place] [id number] [address] [place] [address] Jun, Major depressive disorder, r ecurrent, moderate F33.1 and Major depression F32.[address] [id number] [place] [address] [id number] Jun, Type II diabetes mellitus E11.9 [place] [address] [address] Jun, Depression, major, recurrent , moderate F33.1 [place] [address] [place] [id number] [address] [place] [address] May, Major depressive disorder, r ecurrent, moderate F33.1 [place] [address] [place] [id number] [address] [place] [address] May, [address] [id number] [place] [address] [id number] May, Edema R60.9 [place] [address] [place] [id number] [address] [place] [address] 17 May, 2015 Insomnia G47.00 and Major de pression F32.[address] [id number] [place] [address] [id number] 15 May, 2015 Morbid obesity E66.01 ; Edema R60.9 ; Sh ortness of breath R06.02 ; Benign essential hypertension I10 and Renal insufficiency N28.[address] [id number] [place] [address] [id number] 14 May, 2015 Hyperlipemia 272.4 and Renal insufficien cy N28.9 [place] [address] [place] [address] Apr, Major depression F32.9 [facility] [address] [facility] [id number] [address] [place] [address] Apr, [facility] [address] [facility] [id number] [address] [place] [address] Apr, Major depressive disorder, r ecurrent, moderate F33.1 [facility] [address] [id number] [id number] Apr, Type II diabetes mellitus E11.9 ; Benign essential hypertension I10 ; Edema R60.9 and Renal insufficiency N28.9 [place] [address] [facility] [id number] [address] [place] [address] Mar, Major depressive disorder, r ecurrent, moderate F33.1 [place] [address] [place] [id number] [address] [place] [address] Mar, [place] [address] [facility] [id number] [address] [place] [address] Mar, Major depression F32.9 [facility] [address] [place] [address] AVE [id number] [id number] Mar, Morbid obesity E66.01 ; Benign essential hypertension I10 and Type II diabetes mellitus E11.9 [place] [address] [facility] [id number] [address] [place] [address] Feb, Major depressive disorder, r ecurrent, moderate F33.1 [place] [address] [facility] [id number] [address] [place] [address] Feb, Major depressive disorder, r ecurrent episode, in partial or unspecified remission 296.35 ; Anxiety state, unspecified 300.00 and Morbid obesity 278.01 [place] [address] [facility] [id number] [address] [place] [address] Feb, [facility] [address] [id number] [id number] Feb, Vomiting 787.03 and Viral syndrome 079.9 9 [facility] [address] [facility] [id number] [address] [place] [address] 15 Feb, 2015 Major depression, recurrent 296.30 ; Generalized anxiety disorder 300.02 and No condition on [place] II V71.09 [facility] [address] [facility] [address] [id number] [id number] 03 Feb, 2015 Skin tag 701.9 [facility] [address] [facility] [id number] [address] [place] [address] Feb, [facility] [address] [facility] [id number] [address] [place] [address] Jan, Depression, major, recurrent , moderate 296.[address] [id number] [id number] Jan, Nausea and vomiting 787.01 ; Rib pain on right side 786.50 and Fall on or from sidewalk curb E880.1 [facility] [address] [facility] [id number] [address] [place] [address] Jan, [facility] [address] [place] [id number] [address] [place] [address] Jan, Major depressive disorder, r ecurrent episode, in partial or unspecified remission 296.35 and Anxiety state, unspecified 300.00 [facility] [address] [place], [place] [address] [id number] [id number] Jan, [facility] [address] [facility] [id number] [address] [place] [address] Jan, Depression, major, recurrent , moderate 296.32 [facility] [address] [facility] [id number] [address] [place] [address] Jan, Major depression, recurrent 296.30 ; No condition on [place] II V71.09 and No condition on axis III V71.[address] [id number][place] [id number] Jan, Drug-induced nausea and vomiting 787.01 [facility] [id number] [address] [place] [address] Jan, Depression, major, recurrent , moderate 296.[address] [address] Dec, Depression, major, recurrent , moderate 296.32 [place] [address] [facility] [id number] [place] [address] [id number] Dec, Morbid obesity 278.01 ; Metabolic syndro me 277.7 ; Hyperlipemia 272.4 ; Benign essential hypertension 401.1 ; Dietary counseling V65.3 ; Exercise counseling V65.41 and Inflamed skin tag 701.[address] [address] Dec, Depression, major, recurrent , moderate 296.[address] [address] Dec, [address] [address] Dec, Major depression, recurrent 296.30 ; Anxiety, generalized 300.02 and No condition on [place] II V71.[address] [address] Dec, Depression, major, recurrent , moderate 296.[address] [address] Dec, Major depressive disorder, r ecurrent episode, moderate 296.[address] [address] Dec, Depression, major, recurrent , moderate 296.[address] [address] Dec, Depression, major, recurrent , moderate 296.[address] [address] Dec, Depression, major, recurrent , moderate 296.32 [facility] [address] [place] [id number] [address] [place] [address] Dec, Depression, major, recurrent , moderate 296.32 [facility] [address] [place] [id number] [place] [address] 17 Nov, 2014 Depression, major, recurrent , moderate 296.32 [facility] [address] [address] Nov, Major depression 296.20 ; So cial phobia 300.23 and No condition on [place] II V71.09 [facility] [address] [address] Nov, Depression, major, recurrent , moderate 296.32 [place] [address] [address] Nov, Major depressive disorder, r ecurrent episode, moderate 296.32 and Generalized anxiety disorder 300.02 [facility] [address] [address] Nov, Depression, major, recurrent , moderate 296.32 [facility] [address] [address] Nov, Depression, major, recurrent , moderate 296.32 [facility] [address] [address] October, Generalized anxiety disorder 300.02 ; No condition on [place] II V71.09 and Major depressive disorder, recurrent 296.30 [facility] [address] [address] Sep, [place] [address] [address] Sep, [facility] [address] [address] Aug, [facility] [address] [address] Aug, [facility] [address] [id number] [address] [place] [address], [place] [address] 23 Aug, 2014 [facility] [address] [id number] [address] [place] [address], [place] [address] 23 Aug, 2014 [facility] [address] [id number] [address] [place] [address], [place] [address] 20 Aug, 2014 [facility] [address] [id number] [address] [place] [address], [place] [address] 20 Aug, 2014 [facility] [address] [id number] [address] [place] [address], [place] [address] 20 Aug, 2014 [facility] [address] [id number] [address] [place] [address], [place] [address] 20 Aug, 2014 [facility] [address] [id number] [address] [place] [address], [place] [address] 13 Aug, 2014 [facility] [address] [id number] [address] [place] [address], [place] [address] 13 Aug, 2014 [facility] [address] [id number] [address] [place] [address], [place] [address] 13 Aug, 2014 [facility] [address] [id number] [address] [place] [address], [place] [address] 13 Aug, 2014 [facility] [address] [id number] [address] [place] [address], [place] [address] 12 Aug, 2014 [facility] [address] [id number] [address] [place] [address], [place] [address] 12 Aug, 2014 [facility] [address] [id number] [address] [place] [address], [place] [address] 10 Aug, 2014 [facility] [address] [id number] [address] [place] [address], [place] [address] 10 Aug, 2014 [facility] [address] [id number] [address] [place] [address], [place] [address] 09 Aug, 2014 [facility] [address] [id number] [address] [place] [address], [place] [address] Aug, [facility] [address] [id number] [address] [place] [address], [place] [address] Jul, [facility] [address] [id number] [address] [place] [address], [place] [address] Jul, [facility] [address] [id number] [address] [place] [address], [place] [address] Jul, [facility] [address] [id number] [address] [place] [address], [place] [address] Jul, [facility] [address] [id number] [address] [place] [address], [place] [address] Jul, [facility] [address] [id number] [address] [place] [address], [place] [address] Jul, [facility] [address] [id number] [address] [place] [address], [place] [address] Jun, [facility] [address] [id number] [address] [place] [address], [place] [address] Jun, [facility] [address] [id number] [address] [place] [address], [place] [address] Jun, [facility] [address] [id number] [address] [place] [address], [place] [address] Jun, [facility] [address] [id number] [address] [place] [address], [place] [address] Jun, [facility] [address] [id number] [address] [place] [address] Jun, [facility] [address] [id number] [address] [place] [address], [place] [address] Jun, [facility] [address] [id number] [address] [place] [address], [place] [address] Jun, [facility] [address] [id number] [address] [place] [address] Jun, [facility] [address] [id number] [address] [place] [address], [place] [address] Jun, [facility] [address] [id number] [address] [place] [address], [place] [address] Jun, [facility] [address] [id number] [address] [place] [address], [place] [address] Jun, [facility] [address] [id number] [place] [id number] Jun, [facility] [address] [id number] [address] [place] [address], [place] [address] Jun, [facility] [address] [id number] [address] [place] [address], [place] [address] Jun, [facility] [address] [id number] [address] [place] [address], [place] [address] Jun, [facility] [address] [id number] [address] [place] [address], [place] [address] May, [facility] [address] [id number] [address] [place] [address], [place] [address] May, [facility] [address] [id number] [address] [place] [address], [place] [address] May, [facility] [address] [id number] [address] [place] [address], [place] [address] May, [facility] [address] [id number] [address] [place] [address], [place] [address] Apr, [facility] [address] [id number] [address] [place] [address], [place] [address] Apr, [facility] [address] [id number] [address] [place] [address], [place] [address] Apr, [facility] [address] [id number] [address] [place] [address], [place] [address] Apr, [facility] [address] [id number] [address] [place] [address] [address] Apr, [facility] [address] [id number] [facility] [place] [address] Apr, [facility] [address] [id number] [address] [place] [address], [place] [address] Apr, [facility] [address] [id number] [address] [place] [address], [place] [address] Apr, [facility] [address] [id number] [address] [place] [address], [place] [address] Apr, [facility] [address] [id number] [address] [place] [address], [place] [address] Apr, [facility] [address] [id number] [address] [place] [address], [place] [address] Apr, [facility] [address] [id number] [address] [place] [address], [place] [address] Apr, [facility] [address] [id number] [address] [place] [address], [place] [address] Apr, [facility] [address] [id number] [address] [place] [address], [place] [address] Apr, [facility] [address] [id number] [address] [place] [address], [place] [address] Apr, [facility] [address] [id number] [address] [place] [address] Apr, [facility] [address] [id number] [address] [place] [address] Apr, [facility] [address] [id number] [address] [place] [address], [place] [address] Apr, [facility] [address] [id number] [address] [place] [address], [place] [address] Apr, [facility] [address] [id number] [address] [place] [address], [place] [address] Apr, [facility] [address] [id number] [address] [place] [address], [place] [address] 08 Mar, 2014 [facility] [address] [id number] [address] [place] [address], [place] [address] Mar, [facility] [address] [id number] [address] [place] [address], [place] [address] Mar, [facility] [address] [id number] [address] [place] [address], [place] [address] Mar, [facility] [address] [id number] [address] [place] [address], [place] [address] Mar, [facility] [address] [id number] [address] [place] [address], [place] [address] Mar, [facility] [address] [id number] [address] [place] [address], [place] [address] Mar, [facility] [address] [id number] [address] [place] [address], [place] [address] Mar, [facility] [address] [id number] [address] [place] [address], [place] [address] Mar, [facility] [address] [id number] [address] [place] [address], [place] [address] Mar, [facility] [address] [id number] [address] [place] [address], [place] [address] Feb, [facility] [address] [id number] [address] [place] [address], [place] [address] Feb, [facility] [address] [id number] [address] [place] [address], [place] [address] Feb, [facility] [address] [id number] [address] [place] [address], [place] [address] Feb, [facility] [address] [id number] [address] [place] [address], [place] [address] Jan, [facility] [address] [id number] [address] [place] [address], [place] [address] Jan, [facility] [address] [id number] [facility] [place] [address] Jan, [facility] [address] [id number] [address] [place] [address], [place] [address] Jan, [facility] [address] [id number] [address] [place] [address], [place] [address] Jan, [facility] [address] [id number] [address] [place] [address], [place] [address] Jan, [facility] [address] [id number] [address] [place] [address], [place] [address] Dec, [facility] [address] [id number] [address] [place] [address], [place] [address] Dec, [facility] [address] [id number] [address] [place] [address], [place] [address] Nov, [facility] [address] [id number] [address] [place] [address], [place] [address] Nov, [facility] [address] [id number] [address] [place] [address], [place] [address] Nov, [facility] [address] [id number] [address] [place] [address], [place] [address] Nov, [facility] [address] [id number] [address] [place] [address], [place] [address] Nov, [facility] [address] [id number] [address] [place] [address], [place] [address] Nov, [facility] [address] [id number] [address] [place] [address], [place] [address] Sep, [facility] [address] [id number] [address] [place] [address], [place] [address] Sep, [facility] [address] [id number] [address] [place] [address], [place] [address] Sep, [facility] [address] [id number] [address] [place] [address], [place] [address] Sep, [facility] [address] [id number] [address] [place] [address], [place] [address] Aug, [facility] [address] [id number] [address] [place] [address], [place] [address] Aug, [facility] [address] [id number] [address] [place] [address], [place] [address] Jul, [facility] [address] [id number] [address] [place] [address], [place] [address] Jul, [facility] [address] [id number] [address] [place] [address], [place] [address] Jun, [facility] [address] [id number] [address] [place] [address], [place] [address] Jun, [facility] [address] [id number] [address] [place] [address], [place] [address] Jun, [facility] [address] [id number] [address] [place] [address], [place] [address] Jun, [facility] [address] [id number] [address] [place] [address], [place] [address] May, [facility] [address] [id number] [address] [place] [address], [place] [address] May, [facility] [address] [id number] [address] [place] [address], [place] [address] May, [facility] [address] [id number] [address] [place] [address], [place] [address] May, [facility] [address] [id number] [address] [place] [address], [place] [address] May, [facility] [address] [id number] [address] [place] [address], [place] [address] May, [facility] [address] [id number] [address] [place] [address], [place] [address] Apr, [facility] [address] [id number] [address] [place] [address], [place] [address] Apr, [facility] [address] [id number] [address] [place] [address], [place] [address] Apr, [facility] [address] [id number] [address] [place] [address], [place] [address] Apr, [facility] [address] [id number] [address] [place] [address], [place] [address] Mar, [facility] [address] [id number] [address] [place] [address], [place] [address] Mar, [facility] [address] [id number] [address] [place] [address], [place] [address] Mar, [facility] [address] [id number] [address] [place] [address], [place] [address] Mar, [facility] [address] [id number] [address] [place] [address], [place] [address] Feb, [facility] [address] [id number] [id number] Jan, [facility] [address] [id number] [address] [place] [address], [place] [address] Jan, [facility] [address] [id number] [address] [place] [address], [place] [address] Dec, [facility] [address] [id number] [address] [place] [address], [place] [address] 15 Dec, 2012 [facility] [address] [id number] [address] [place] [address], [place] [id number] Dec, [facility] [address] [id number] [place] [id number] Dec, [facility] [address] [id number] [address] [place] [address], [place] [phone] Nov, [facility] [address] [id number] [address] [place] [address], [place] [phone] 14 Nov, 2012 [facility] [address] [id number] [address] [place] [phone] Nov, [facility] [address] [id number] [address] [place] [phone] Nov, [facility] [address] [id number] [address] [place] [phone] Nov, [facility] [address] [facility] [id number] [address] [place] [phone] October, [facility] [address] [id number] [address] [place] [id number] October, [facility] [address] [facility] [id number] [address] [place] [phone] Aug, [facility] [address] [facility] [id number] [address] [place] [phone] Nov, IMMUNIZATIONS No Known Immunizations SOCIAL HISTORY Never Assessed REASON FOR VISIT EMR-[facility] PLAN OF CARE VITAL SIGNS MEDICATIONS Unknown [...] 03/2016 Hospitalization History gastric sleeve Hospitalization History [facility] ER Trouble with left shoulder blade 08/2017
--- OUTSIDE RECORDS SUMMARY | 2019-11-29 09:21 | XMS REPORT ---
Author Author Fredy Curt Doctor Organization [facility] Address Unknown Phone Unavailable Care Team Providers Care Seamless Tube Roller Name Role Phone Migration, Doctor Unavailable Unavailable PROBLEMS Type Condition ICD9-CM Code YEZ52-NI Code Onset Dates Condition S tatus SNOMED Code Problem Benign essential hypertension I10 Active 8641637 Problem Major depression F32.9 Active 370 166822 Problem Renal insufficiency N28.9 Active 566817168 Problem Morbid obesity E66.01 Active 06028 6002 Problem Callus of foot L84 Active 12721 1005 Problem Edema R60.9 Active 039055094 Problem Metabolic syndrome E88.81 Active 2 73711635 Problem Recurrent major depressive disorder, in partial remission F33.41 Active 02955860 Problem Vitamin D deficiency E55.9 Active 93110061 Problem Mixed obsessional thoughts and acts F42.2 Active 24289619 Problem BMI 45.0-49.9, adult Z68.42 Active 570852161 Problem Chronic fatigue R53.82 Active 8422 9001 Problem Anxiety F41.9 Active 38263295 Problem Hyperlipemia E78.5 Active 5291004 4 Problem Other chronic pain G89.29 Active 8 8966723 Problem Severe episode of recurrent major depressive disorder, without psychotic features F33.2 Active 68602338 Problem Insomnia G47.00 Active 894085785 Problem DANIELA (generalized anxiety disorder) F41.1 Active 86844716 Problem Sciatica, right side M54.31 Active [id number] Problem Depressive disorder, not elsewhere classified F32. 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 [id number] [address] [place] [address] Sep, [facility] [address] [id number] [place] [id number] Sep, 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 [facility] [address] [id number] [place] [id number] Aug, Mouth abscess K12.2 ; Mouth ulcer K12.1 ; Bloating R14.0 and Morbid obesity E66.01 [facility] [address] [id number] [place] [id number] Aug, [facility] [address] [place] [address] AVE [id number] DOU[place], [place] [id number] Aug, [facility] [address] [id number] [place]OU[place] [id number] Jul, Major depressive disorder, recurrent, mo derate F33.1 ; Abscess of arm, left L02.414 and BMI 45.0-49.9, adult Z68.42 [facility] [address] [place] [address] AVE [id number] DOU[place] [id number] Jul, [facility] [place] [address] [place] [address] AVE [id number] DOU[place], [place] [id number] Jul, [facility] [place] [address] [place] [address] AVE [id number] [place]OU[place] [id number] Jun, Pain in right knee M25.561 and Other chr onic pain G89.29 [facility] [place] [employer] [place] [address] AVE [id number] DOUGL[place], [place] [id number] Jun, Benign essential hypertension I10 ; BMI 45.0-49.9, adult Z68.42 ; Morbid obesity E66.01 ; Vitamin D deficiency E55.9 ; Insomnia G47.00 ; 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 [id number] [address] [place] [phone] May, [facility] [address] 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 [id number] [address] [place] [phone] 27 Apr, 2018 [facility] [address] [facility] [id number] [address] [place] [phone] Apr, [facility] [address] [facility] [id number] [address] [place] [phone] Apr, [facility] [address] [facility] [id number] [address] [place] [phone] Apr, [facility] [address] [facility] [id number] [address] [place] [phone] Mar, Mixed obsessional thoughts a nd acts F42.2 ; Recurrent major depressive disorder, in partial remission F33.41 ; DANIELA (generalized anxiety disorder) F41.1 and BMI 45.0-49.9, adult Z68.42 [facility] [address] [id number] DOU[place], [place] [id number] Mar, [facility] [id number] [place] [id number] Mar, BMI 45.0-49.9, adult Z68.42 ; Instabilit y of right knee joint M25.361 and Rash R21 [facility] [address] [facility] [id number] [address] [place] [phone] Jan, Recurrent major depressive d isorder, in partial remission F33.41 ; Mixed obsessional thoughts and acts F42.2 and BMI 45.0-49.9, adult Z68.42 [facility] [address] [id number] [place] [id number] Jan, [facility] [address] [id number] [place] [id number] Jan, Benign essential hypertension I10 ; BMI 45.0-49.9, adult Z68.42 ; Metabolic syndrome E88.81 and Allergic rhinitis, unspecified seasonality, unspecified trigger J30.9 [facility] [address] [facility] [id number] [address] [place] [phone] Dec, DANIELA (generalized anxiety dis order) F41.1 and Depressive disorder, not elsewhere classified F32.9 [facility] [address] [id number] DOU[place], [place] [id number] Dec, Recurrent major depressive disorder, in partial remission F33.41 [facility] [place] [address] [place] [address] AVE [id number] [place] [id number] Dec, [facility] [address] [id number] [place] [id number] Nov, [facility] [address] [id number] [place] [id number] Nov, Recurrent major depressive disorder, in partial remission F33.41 [facility] [address] [facility] [id number] [address] [place] [phone] Nov, Recurrent major depressive d isorder, in partial remission F33.41 ; Mixed obsessional thoughts and acts F42.2 ; DANIELA (generalized anxiety disorder) F41.1 and BMI 45.0-49.9, adult Z68.42 [facility] [address] [id number] [place], [place] [id number] Nov, [facility].itBROWN[facility] [address] [id number] [place] [id number] Nov, Other conjunctivitis of both eyes H10.89 and Sciatica, right side M54.31 [facility] [address] [id number] [place] [id number] Nov, [facility] [address] [id number] [place] [id number] Nov, [facility] [address] [id number] [place], [place] [id number] October, [facility] [address] [id number] [place] [id number] October, [facility] [address] [facility] [id number] [address] [place] [phone] October, BMI 45.0-49.9, adult Z68.42 ; Mixed obsessional thoughts and acts F42.2 ; Recurrent major depressive disorder, in partial remission F33.41 and DANIELA (generalized anxiety disorder) F41.1 [facility] [address] [id number] DOUGLAS, [place] [id number] October, Benign essential hypertension I10 ; Morb id obesity E66.01 and BMI 45.0-49.9, adult Z68.42 [facility] [address] [id number] [place]OU[place], [place] [id number] Sep, [facility] [address] [id number] [place], [place] [id number] Sep, [facility] [address] [id number] [place], [place] [id number] Sep, [facility] [address] [id number] DOU[place], [place] [id number] Sep, Hospital discharge follow-up Z09 ; Aller gic rhinitis, unspecified seasonality, unspecified trigger J30.9 and Shortness of breath R06.02 [facility] [address] [id number] [place], [place] [id number] Sep, Recurrent major depressive disorder, in partial remission F33.41 [facility] [address] [id number] [place]OU[place], [place] [id number] Aug, Irritable mood R45.4 [facility] [address] [facility] [id number] [address] [place] [phone] Aug, [facility] [address] [id number] [place], [place] [id number] Jul, Benign essential hypertension I10 ; Robert a R60.9 and Impacted cerumen of left ear H61.22 [place] [address] [facility] [id number] [address] [place] [phone] 14 Jul, 2017 Major depression F32.9 ; Rec urrent major depressive disorder, in partial remission F33.41 and Anxiety F41.9 [place] [address] [facility] [id number] [address] [place] [phone] Jun, Major depression F32.9 ; Rec urrent major depressive disorder, in partial remission F33.41 and Anxiety F41.[address] [place] [address] [id number] [place], [place] [id number] Jun, Major depression F32.9 ; Morbid obesity E66.01 ; Irritable mood R45.4 ; Hand weakness R29.898 and Vitamin D deficiency E55.[address] [place] [address] [id number] [place] [id number] Jun, [place] [address] [id number] [place], [place] [id number] May, Major depression F32.9 [place] [address] [facility] [id number] [address] [place] [phone] May, Major depression F32.9 [facility] [address] [id number] [place] [id number] May, BMI 50.0-59.9, adult Z68.43 ; Major depr ession F32.9 ; Anxiety F41.9 ; Hypertrophic toenail L60.2 and Pain of left great toe M79.[address] [place] [address] [id number] [place], [place] [id number] May, Recurrent major depressive disorder, in partial remission F33.41 [place] [address] [facility] [id number] [address] [place] [phone] Apr, [facility] [address] [id number] DOUGLAS, [place] [id number] Apr, [facility] [address] [facility] [id number] [address] [place] [phone] Apr, Major depression F32.9 [facility] [address] [id number] [place]OU[place], [place] [id number] Apr, Severe episode of recurrent major depres sive disorder, without psychotic features F33.2 ; Anxiety F41.9 and Insomnia G47.00 [facility] [id number] [place] [address] [id number] Apr, [facility] [address] [facility] [id number] [address] [place] [phone] Apr, [facility] [address] [id number] [place], [place] [id number] Apr, [facility] [id number] [place] [address] [id number] Mar, [facility] [place] [id number] [place] [address] [phone] Mar, Allergic conjunctivitis of both eyes H10 .13 [facility] [address] [facility] [id number] [address] [place] [phone] Mar, Major depression F32.9 [facility] [address] [id number] [place]OUGL[place], [place] [id number] Mar, Metabolic syndrome E88.81 ; History of g astric bypass Z98.890 ; Benign essential hypertension I10 and Allergic conjunctivitis of both eyes H10.13 [facility] [address] [facility] [id number] [address] [place] [phone] Mar, Major depression F32.9 [facility] [address] [id number] DOU[place], [place] [id number] Feb, [facility] [address] [facility] [id number] [address] [place] [phone] 12 Feb, 2017 Major depression F32.9 [place] [address] [facility] [address] [id number] [place] [address] [id number] Feb, Subacute maxillary sinusitis J01.00 and Bronchitis J40 [place] [address] [facility] [id number] [address] [place] [phone] Feb, Major depressive disorder, r ecurrent, moderate F33.1 [facility] [place] [address] [facility] [address] [id number] [place]OU[place], [place] [id number] Jan, [facility] [place] [address] [facility] [address] [id number] [place] [address] [id number] Jan, Acute non-recurrent maxillary sinusitis J01.00 and Skin tag L91.[address] [id number] [place] [address] [id number] Jan, Cough R05 and Sinus congestion R09.81 [facility] [address] [id number] [place] [address] [id number] Jan, [facility] [address] [id number] [place] [address] [id number] Jan, Benign essential hypertension I10 ; Hist ory of gastric bypass Z98.890 and Nausea and vomiting in adult R11.2 [place] [address] [place] [id number] [address] [place] [phone] Jan, Major depressive disorder, r ecurrent, moderate F33.1 [place] [address] [facility] [id number] [address] [place] [phone] Dec, Insomnia G47.00 ; Recurrent major depressive disorder, in partial remission F33.41 and Morbid obesity E66.01 [facility] [place] [address] [facility] [address] [id number] [place]OU[place], [place] [id number] Dec, [facility] [place] [address] [place] [address] AVE [id number] [place]OU[place], [place] [id number] Dec, Chronic bacterial conjunctivitis of left eye H10.402 [facility] Yulia[address] [facility] [address] [id number] [place], [place] [id number] 27 Nov, [address] [id number] DOU[place], [place] [id number] Nov, Dental examination Z01.[address] [id number] DOUGL[place], [place] [id number] 23 Nov, 2016 Benign essential hypertension I10 ; Hist ory of gastric bypass Z98.890 and Nausea and vomiting in adult R11.2 [facility] [address] [facility] [id number] [address] [place] [phone] 13 Nov, 2016 Major depressive disorder, r ecurrent, moderate F33.1 ; Generalized anxiety disorder F41.1 and Insomnia due to other mental disorder F51.05 [place] [address] [facility] [id number] [address] [place] [phone] 12 Nov, 2016 Recurrent major depressive d isorder, in partial remission F33.41 ; Insomnia G47.00 and Morbid obesity E66.01 [facility] [address] [id number] [place] [id number] October, Abscess of left arm L02.414 [facility] [address] [facility] [id number] [address] [place] [phone] October, Morbid obesity E66.01 ; Lida r depression F32.9 and Recurrent major depressive disorder, in partial remission F33.[address] [id number] [place]OU[place], [place] [id number] Sep, Benign essential hypertension I10 ; Morb id obesity E66.01 ; S/P gastric bypass Z98.84 ; Abscess L02.91 and Chronic bacterial conjunctivitis of left eye H10.[address] [id number] [place]OU[place], [place] [id number] 17 Sep, 2016 Dental examination Z01.20 [facility] [address] [facility] [id number] [address] [place] [phone] 11 Sep, 2016 Morbid obesity E66.01 ; Lida r depression F32.9 and Recurrent major depressive disorder, in partial remission F33.41 [facility] [address] [facility] [id number] [address] [place] [phone] Jul, [facility] [address] [facility] [id number] [address] [place] [phone] Jul, Major depressive disorder, r ecurrent, moderate F33.1 [place] [address] [facility] [id number] [address] [place] [phone] Jul, Major depressive disorder, r ecurrent, moderate F33.1 and Generalized anxiety disorder F41.1 [facility] [id number] [place] [address] [id number] Jul, Cough R05 [place] [address] [facility] [id number] [address] [place] [phone] Jul, Morbid obesity E66.01 ; Lida r depression F32.9 and Recurrent major depressive disorder, in partial remission F33.41 [facility] [id number] [place] [address] [id number] Jul, [facility] [id number] [place] [address] [id number] Jul, [facility] [place] [address] [id number] [place] [address] [id number] Jul, Gastroenteritis K52.9 and Cough R05 [facility] [id number] [place] [address] [id number] Jun, Acute bacterial conjunctivitis of left e ye H10.32 [place] [address] [facility] [id number] [address] [place] [phone] Jun, [place] [address] [facility] [id number] [address] [place] [phone] Jun, Recurrent major depressive d isorder, in partial remission F33.41 [place] [address] [facility] [id number] [address] [place] [phone] May, Major depression F32.9 and M orbid obesity E66.01 [facility] [address] [facility] [id number] [address] [place] [phone] May, [facility] [address] [facility] [address] [id number] [place] [address] [id number] May, Thrush B37.0 [facility] [address] [facility] [id number] [address] [place] [phone] Apr, Major depressive disorder, r ecurrent, moderate F33.1 [facility] [address] [facility] [id number] [address] [place] [phone] Apr, Insomnia G47.00 ; Major depr ession F32.9 and Recurrent major depressive disorder, in partial remission F33.41 [facility] [address] [facility] [id number] [address] [place] [phone] Apr, [place] [address] [facility] [id number] [address] [place] [phone] Apr, Major depression F32.9 and R ecurrent major depressive disorder, in partial remission F33.[address] [id number] [place] [address] [id number] Mar, Benign essential hypertension I10 ; Morb id obesity E66.01 ; Impacted cerumen of both ears H61.23 ; Laceration of finger of right hand, initial encounter S61.219A and Encounter for immunization Z23 [facility] [address] [facility] [id number] [address] [place] [phone] Mar, [facility] [address] [facility] [id number] [address] [place] [phone] Mar, [place] [address] [facility] [id number] [address] [place] [phone] Mar, [address] [id number] [place]OUGLAS, [place] [id number] Feb, Nausea R11.0 ; Blood in the stool K92.1 and Benign essential hypertension I10 [facility] [address] [facility] [id number] [address] [place] [phone] Feb, Major depression F32.9 and R ecurrent major depressive disorder, in partial remission F33.[address] [facility] [address] [address] [id number] [place]OUGL[place], [place] [id number] Feb, [facility] [place] [address] [id number] [place]OUGL[place] [id number] Feb, Recurrent major depressive disorder, in partial remission F33.[address] [facility] [place] [address] [id number] [place]OUGL[place] [id number] Jan, [facility] [place] [address] [id number] [place]OU[place], [place] [id number] Jan, Benign essential hypertension I10 ; Robert a R60.9 and Hyperlipidemia, unspecified hyperlipidemia type E78.5 [facility] [address] [id number] DOUGLAS, [place] [id number] Jan, Recurrent major depressive disorder, in partial remission F33.41 [facility] [address] [id number] [place], [place] [id number] Jan, [facility] [place] [address] [id number] [place] [id number] Jan, [facility] [place] [address] [id number] [place]OUGL[place], [place] [id number] Jan, [facility] [address] [facility] [id number] [address] [place] [phone] Jan, [facility] [address] [facility] [id number] [address] [place] [phone] Dec, [facility] [address] [facility] [id number] [address] [place] [phone] Nov, [facility] [address] [facility] [id number] [address] [place] [phone] Nov, Major depression F32.9 [facility] [address] [facility] [id number] [address] [place] [phone] Nov, [facility] [address] [facility] [id number] [address] [place] [phone] Nov, [facility] [address] [facility] [id number] [address] [place] [phone] Nov, Major depressive disorder, r ecurrent episode, mild F33.0 and Anxiety F41.[address] [facility] [address] [id number] [id number] Nov, [place] [id number] [place] [id number] October, Left elbow pain M25.522 and Other season al allergic rhinitis J30.2 [facility] [address] [facility] [id number] [place] [id number] October, [place] [address] [place] [id number] [address] [place] [phone] October, Major depressive disorder, r ecurrent, moderate F33.1 [facility] [address] [place] [id number] [address] [place] [phone] October, Major depression F32.9 [place] [address] [place] [id number] [address] [place] [phone] Sep, [place] or callus L84 and Onych omycosis B35.1 [place] [address] [place] [id number] [address] [place] [phone] Sep, Major depressive disorder, r ecurrent, moderate F33.1 [facility] [address] [facility] [id number] [address] [place] [phone] Sep, Major depression F32.9 [place] [address] [facility] [id number] [address] [place] [address] Sep, Moderate episode of recurren t major depressive disorder F33.[address] [facility] [address] [id number] [id number] Sep, Muscle strain T14.8 [facility] [address] [facility] [id number] [address] [place] [address] Aug, Major depression F32.9 [facility] [address] [facility] [id number] [address] [place] [address] Aug, Major depression F32.9 [facility] [address] [facility] [id number] [address] [place] [address] Jul, Morbid obesity E66.01 and Ma cora depression F32.9 [facility] [address] [facility] [id number] [address] [place] [address] Jul, Depression, major, recurrent , moderate F33.1 [facility] [address] [facility] [address] [id number] [place] [id number] Jul, [facility] [address] [facility] [id number] [address] [place] [address] Jul, [facility] [address] [facility] [id number] [address] [place] [address] Jul, Major depression F32.9 and M orbid obesity E66.[address] [facility] [id number] [place] [id number] Jul, Type II diabetes mellitus E11.9 ; Callus of foot L84 ; Benign essential hypertension I10 and Renal insufficiency N28.9 [facility] [address] [facility] [id number] [address] [place] [address] Jul, Depression, major, recurrent , moderate F33.1 [facility] [address] [facility] [id number] [address] [place] [address] Jul, Major depression F32.9 [facility] [address] [facility] [id number] [address] [place] [address] Jul, [facility] [address] [facility] [id number] [address] [place] [address] Jun, Major depression F32.9 [place] [address] [facility] [id number] [address] [place] [address] Jun, Major depressive disorder, r ecurrent, moderate F33.1 [place] [address] [facility] [id number] [address] [place] [phone] Jun, [place] [address] [facility] [id number] [address] [place] [address] Jun, Major depressive disorder, r ecurrent, moderate F33.1 and Major depression F32.[address] [id number] [place] [address] [id number] Jun, Type II diabetes mellitus E11.9 [place] [address] [facility] [id number] [address] [place] [address] Jun, Depression, major, recurrent , moderate F33.1 [place] [address] [place] [id number] [address] [place] [address] May, Major depressive disorder, r ecurrent, moderate F33.1 [place] [address] [place] [id number] [address] [place] [address] May, [address] [id number] [place] [address] [id number] May, Edema R60.9 [place] [address] [place] [id number] [address] [place] [address] 17 May, 2015 Insomnia G47.00 and Major de pression F32.[address] [id number] [place] [address] [id number] 15 May, 2015 Morbid obesity E66.01 ; Edema R60.9 ; Sh ortness of breath R06.02 ; Benign essential hypertension I10 and Renal insufficiency N28.[address] [id number] [place] [address] [id number] 14 May, 2015 Hyperlipemia 272.4 and Renal insufficien cy N28.9 [place] [address] [place] [id number] [address] [place] [phone] Apr, Major depression F32.9 [facility] [address] [facility] [id number] [address] [place] [id number] Apr, [place] [address] [facility] [id number] [address] [place] [address] Apr, Major depressive disorder, r ecurrent, moderate F33.[address] [place] [id number] [place] [address] [id number] Apr, Type II diabetes mellitus E11.9 ; Benign essential hypertension I10 ; Edema R60.9 and Renal insufficiency N28.9 [place] [address] [facility] [id number] [address] [place] [phone] Mar, Major depressive disorder, r ecurrent, moderate F33.1 [place] [address] [place] [id number] [address] [place] [phone] Mar, [place] [address] [facility] [id number] [address] [place] [address] Mar, Major depression F32.[address] [id number] [place] [id number] Mar, Morbid obesity E66.01 ; Benign essential hypertension I10 and Type II diabetes mellitus E11.9 [place] [address] [facility] [id number] [address] [place] [phone] Feb, Major depressive disorder, r ecurrent, moderate F33.1 [place] [address] [facility] [id number] [address] [place] [address] Feb, Major depressive disorder, r ecurrent episode, in partial or unspecified remission 296.35 ; Anxiety state, unspecified 300.00 and Morbid obesity 278.01 [place] [address] [facility] [id number] [address] [place] [phone] Feb, [facility] [address] [id number] [place] [id number] Feb, Vomiting 787.03 and Viral syndrome 079.9 9 [facility] [address] [facility] [id number] [address] [place] [id number] 15 Feb, 2015 Major depression, recurrent 296.30 ; Generalized anxiety disorder 300.02 and No condition on [place] II V71.09 [facility] [address] [place] [address] AVE [id number] [place] [id number] 03 Feb, 2015 Skin tag 701.9 [facility] [address] [place] [id number] [address] [place] [phone] Feb, [facility] [address] [facility] [id number] [address] [place] [address] Jan, Depression, major, recurrent , moderate 296.[address] [id number] [place] [id number] Jan, Nausea and vomiting 787.01 ; Rib pain on right side 786.50 and Fall on or from sidewalk curb E880.1 [facility] [address] [facility] [id number] [address] [place] [address] Jan, [facility] [address] [place] [id number] [address] [place] [phone] Jan, Major depressive disorder, r ecurrent episode, in partial or unspecified remission 296.35 and Anxiety state, unspecified 300.[address] [id number] [place] [id number] Jan, [facility] [address] [facility] [id number] [address] [place] [address] Jan, Depression, major, recurrent , moderate 296.32 [facility] [address] [facility] [id number] [address] [place] [address] Jan, Major depression, recurrent 296.30 ; No condition on [place] II V71.09 and No condition on axis III V71.[address] [id number] [place] [id number] Jan, Drug-induced nausea and vomiting 787.01 [place] [address] [place] [id number] [address] [place] [address] Jan, Depression, major, recurrent , moderate 296.[address] [address] Dec, Depression, major, recurrent , moderate 296.[address] [id number] [place] [address] [id number] Dec, Morbid obesity 278.01 ; Metabolic syndro me 277.7 ; Hyperlipemia 272.4 ; Benign essential hypertension 401.1 ; Dietary counseling V65.3 ; Exercise counseling V65.41 and Inflamed skin tag 701.[address] [address] Dec, Depression, major, recurrent , moderate 296.[address] [address] Dec, [address] [address] Dec, Major depression, recurrent 296.30 ; Anxiety, generalized 300.02 and No condition on [place] II V71.09 [place] [id number] [address] [place] [address] Dec, Depression, major, recurrent , moderate 296.[address] [address] Dec, Major depressive disorder, r ecurrent episode, moderate 296.32 [place] [id number] [address] [place] [address] Dec, Depression, major, recurrent , moderate 296.[address] [address] Dec, Depression, major, recurrent , moderate 296.[address] [address] Dec, Depression, major, recurrent , moderate 296.32 [facility] [address] [place] [id number] [address] [place] [phone] Dec, Depression, major, recurrent , moderate 296.32 [facility] [address] [place] [id number] [address] [place] [address] Nov, Depression, major, recurrent , moderate 296.32 [place] [address] [address] Nov, Major depression 296.20 ; So cial phobia 300.23 and No condition on [place] II V71.09 [facility] [address] [place] [id number] [place] [address] Nov, Depression, major, recurrent , moderate 296.32 [place] [address] [address] Nov, Major depressive disorder, r ecurrent episode, moderate 296.32 and Generalized anxiety disorder 300.02 [facility] [address] [address] Nov, Depression, major, recurrent , moderate 296.32 [facility] [address] [address] Nov, Depression, major, recurrent , moderate 296.32 [facility] [address] [address] October, Generalized anxiety disorder 300.02 ; No condition on [place] II V71.09 and Major depressive disorder, recurrent 296.30 [facility] [address] [address] Sep, [facility] [address] [address] Sep, [facility] [address] [place] [id number] [address] [place] [phone] Aug, [facility] [address] [address] 24 Aug, 2014 [facility] [address] [id number] [facility] [place] [place] [address] 23 Aug, 2014 [facility] [address] [id number] [facility] [place] [address] 23 Aug, 2014 [facility] [address] [id number] [facility] [place] [place] [address] 20 Aug, 2014 [facility] [address] [id number] [address] [place] [address], [place] [address] 20 Aug, 2014 [facility] [address] [id number] [address] [place] [address], [place] [address] 20 Aug, 2014 [facility] [address] [id number] [address] [place] [address], [place] [address] 20 Aug, 2014 [facility] [address] [id number] [address] [place] [address], [place] [address] 13 Aug, 2014 [facility] [address] [id number] [address] [place] [address], [place] [address] 13 Aug, 2014 [facility] [address] [id number] [address] [place] [address], [place] [address] 13 Aug, 2014 [facility] [address] [id number] [address] [place] [address], [place] [address] 13 Aug, 2014 [facility] [address] [id number] [address] [place] [address], [place] [address] 12 Aug, 2014 [facility] [address] [id number] [address] [place] [address], [place] [address] 12 Aug, 2014 [facility] [address] [id number] [address] [place] [address], [place] [address] 10 Aug, 2014 [facility] [address] [id number] [address] [place] [address], [place] [address] 10 Aug, 2014 [facility] [address] [id number] [address] [place] [address], [place] [address] 09 Aug, 2014 [facility] [address] [id number] [address] [place] [address], [place] [address] Aug, [facility] [address] [id number] [address] [place] [address], [place] [address] Jul, [facility] [address] [id number] [address] [place] [address], [place] [address] Jul, [facility] [address] [id number] [address] [place] [address], [place] [address] Jul, 2014 [facility] [address] [id number] [address] [place] [address], [place] [address] Jul, 2014 [facility] [address] [id number] [address] [place] [address], [place] [address] Jul, [facility] [address] [id number] [address] [place] [address], [place] [address] Jul, [facility] [address] [id number] [address] [place] [address], [place] [address] Jun, [facility] [address] [id number] [address] [place] [address], [place] [address] Jun, [facility] [address] [id number] [address] [place] [address], [place] [address] Jun, [facility] [address] [id number] [address] [place] [address], [place] [address] Jun, [facility] [address] [id number] [address] [place] [address], [place] [address] Jun, [facility] [address] [id number] [address] [place] [address], [place] [address] Jun, [facility] [address] [id number] [address] [place] [address], [place] [address] Jun, [facility] [address] [id number] [address] [place] [address], [place] [address] Jun, [facility] [address] [id number] [address] [place] [address], [place] [address] Jun, [facility] [address] [id number] [address] [place] [address], [place] [address] Jun, [facility] [address] [id number] [address] [place] [address], [place] [address] Jun, [facility] [address] [id number] [address] [place] [address], [place] [address] Jun, [facility] [address] [id number] [place] [id number] Jun, [facility] [address] [id number] [address] [place] [address], [place] [address] Jun, [facility] [address] [id number] [address] [place] [address], [place] [address] Jun, [facility] [address] [id number] [address] [place] [address], [place] [address] Jun, [facility] [address] [id number] [address] [place] [address], [place] [address] May, [facility] [address] [id number] [address] [place] [address], [place] [address] May, [facility] [address] [id number] [address] [place] [address], [place] [address] May, [facility] [address] [id number] [address] [place] [address], [place] [address] May, [facility] [address] [id number] [address] [place] [address] Apr, [facility] [address] [id number] [address] [place] [address], [place] [address] Apr, [facility] [address] [id number] [address] [place] [address], [place] [address] Apr, [facility] [address] [id number] [address] [place] [address], [place] [address] Apr, [facility] [address] [id number] [address] [place] [address] Apr, [facility] [address] [id number] [address] [place] [address], [place] [address] Apr, [facility] [address] [id number] [address] [place] [address], [place] [address] Apr, [facility] [address] [id number] [address] [place] [address], [place] [address] Apr, [facility] [address] [id number] [address] [place] [address], [place] [address] Apr, [facility] [address] [id number] [address] [place] [address], [place] [address] Apr, [facility] [address] [id number] [address] [place] [address], [place] [address] Apr, [facility] [address] [id number] [address] [place] [address], [place] [address] Apr, [facility] [address] [id number] [address] [place] [address], [place] [address] Apr, [facility] [address] [id number] [address] [place] [address], [place] [address] Apr, [facility] [address] [id number] [address] [place] [address], [place] [address] Apr, [facility] [address] [id number] [address] [place] [address], [place] [address] Apr, [facility] [address] [id number] [address] [place] [address] Apr, [facility] [address] [id number] [address] [place] [address], [place] [address] Apr, [facility] [address] [id number] [address] [place] [address], [place] [address] Apr, [facility] [address] [id number] [address] [place] [address], [place] [address] Apr, [facility] [address] [id number] [address] [place] [address], [place] [address] 08 Mar, 2013 [facility] [address] [id number] [address] [place] [address], [place] [address] Mar, [facility] [address] [id number] [address] [place] [address], [place] [address] Mar, 2013 [facility] [address] [id number] [address] [place] [address], [place] [address] Mar, 2013 [facility] [address] [id number] [address] [place] [address], [place] [address] Mar, [facility] [address] [id number] [address] [place] [address], [place] [address] Mar, [facility] [address] [id number] [address] [place] [address], [place] [address] Mar, [facility] [address] [id number] [address] [place] [address], [place] [address] Mar, [facility] [address] [id number] [address] [place] [address], [place] [address] Mar, [facility] [address] [id number] [address] [place] [address], [place] [address] Mar, [facility] [address] [id number] [address] [place] [address], [place] [address] Feb, [facility] [address] [id number] [address] [place] [address], [place] [address] Feb, [facility] [address] [id number] [address] [place] [address], [place] [address] Feb, [facility] [address] [id number] [address] [place] [address], [place] [address] Feb, [facility] [address] [id number] [address] [place] [address], [place] [address] Jan, [facility] [address] [id number] [address] [place] [address], [place] [address] Jan, [facility] [address] [id number] [facility] [place] [address] Jan, [facility] [address] [id number] [address] [place] [address], [place] [address] Jan, [facility] [address] [id number] [facility] [place] [place] [address] Jan, [facility] [address] [id number] [address] [place] [address], [place] [address] Jan, [facility] [address] [id number] [address] [place] [address], [place] [address] Dec, [facility] [address] [id number] [address] [place] [address], [place] [address] Dec, [facility] [address] [id number] [address] [place] [address], [place] [address] Nov, [facility] [address] [id number] [address] [place] [address], [place] [address] Nov, [facility] [address] [id number] [address] [place] [address], [place] [address] Nov, [facility] [address] [id number] [address] [place] [address], [place] [address] Nov, [facility] [address] [id number] [address] [place] [address], [place] [address] Nov, [facility] [address] [id number] [address] [place] [address], [place] [address] Nov, [facility] [address] [id number] [address] [place] [address], [place] [address] Sep, [facility] [address] [id number] [address] [place] [address], [place] [address] Sep, [facility] [address] [id number] [address] [place] [address], [place] [address] Sep, [facility] [address] [id number] [address] [place] [address], [place] [address] Sep, [facility] [address] [id number] [address] [place] [address], [place] [address] Aug, [facility] [address] [id number] [address] [place] [address], [place] [address] Aug, [facility] [address] [id number] [address] [place] [address], [place] [address] Jul, [facility] [address] [id number] [address] [place] [address], [place] [address] Jul, [facility] [address] [id number] [address] [place] [address], [place] [address] Jun, [facility] [address] [id number] [address] [place] [address], [place] [address] Jun, [facility] [address] [id number] [address] [place] [address], [place] [address] Jun, [facility] [address] [id number] [address] [place] [address], [place] [address] Jun, [facility] [address] [id number] [address] [place] [address], [place] [address] May, [facility] [address] [id number] [address] [place] [address], [place] [address] May, [facility] [address] [id number] [address] [place] [address], [place] [address] May, [facility] [address] [id number] [address] [place] [address], [place] [address] May, [facility] [address] [id number] [address] [place] [address], [place] [address] May, [facility] [address] [id number] [address] [place] [address], [place] [address] May, [facility] [address] [id number] [address] [place] [address], [place] [address] Apr, [facility] [address] [id number] [address] [place] [address], [place] [address] Apr, [facility] [address] [id number] [address] [place] [address], [place] [address] Apr, [facility] [address] [id number] [address] [place] [address], [place] [address] Apr, [facility] [address] [id number] [address] [place] [address], [place] [address] Mar, [facility] [address] [id number] [address] [place] [address], [place] [address] Mar, [facility] [address] [id number] [address] [place] [address], [place] [address] Mar, [facility] [address] [id number] [address] [place] [address], [place] [address] Mar, [facility] [address] [id number] [address] [place] [address], [place] [address] Feb, [facility] [address] [id number] [place] [id number] Jan, [facility] [address] [id number] [address] [place] [address], [place] [address] Jan, [facility] [address] [id number] [address] [place] [address], [place] [address] Dec, [facility] [address] [id number] [address] [place] [address], [place] [address] 15 Dec, 2012 [facility] [address] [id number] [address] [place] [address], [place] [address] Dec, [facility] [address] [id number] [place] [id number] Dec, [facility] [address] [address] [id number] [address] [place] [address], [place] [address] Nov, [facility] [address] [id number] [address] [place] [address], [place] [id number] 14 Nov, 2012 [facility] [address] [id number] [address] [place] [id number] Nov, [facility] [address] [id number] [address] [place] [phone] Nov, [facility] [address] [id number] [address] [place] [phone] Nov, [facility] [address] [facility] [id number] [address] [place] [id number] October, [facility] [address] [facility] [id number] [address] [place] [phone] October, [facility] [address] [facility] [id number] [address] [place] [phone] Aug, [facility] [address] [facility] [id number] [address] [place] [phone] 13 Nov, 2011 IMMUNIZATIONS No Known Immunizations SOCIAL HISTORY Never Assessed REASON FOR VISIT EMR-[facility] PLAN OF CARE VITAL SIGNS MEDICATIONS Unknown [...] 03/2016 Hospitalization History gastric sleeve Hospitalization History [facility] ER Trouble with left shoulder blade 08/2017
--- OUTSIDE RECORDS SUMMARY | 2019-11-29 09:21 | XMS REPORT ---
Author Author Fredy Curt Doctor Organization [facility] Address Unknown Phone Unavailable Care Team Providers Care Rcp Name Role Phone Migration, Doctor Unavailable Unavailable PROBLEMS Type Condition ICD9-CM Code SCA77-SV Code Onset Dates Condition S tatus SNOMED Code Problem Benign essential hypertension I10 Active 0648792 Problem Major depression F32.9 Active 370 450765 Problem Renal insufficiency N28.9 Active 381318127 Problem Morbid obesity E66.01 Active 65069 6002 Problem Callus of foot L84 Active 30075 1005 Problem Edema R60.9 Active 282485396 Problem Metabolic syndrome E88.81 Active 2 33177596 Problem Recurrent major depressive disorder, in partial remission F33.41 Active 29167157 Problem Vitamin D deficiency E55.9 Active 80329602 Problem Mixed obsessional thoughts and acts F42.2 Active 43531600 Problem BMI 45.0-49.9, adult Z68.42 Active 970937468 Problem Chronic fatigue R53.82 Active 8422 9001 Problem Anxiety F41.9 Active 44588328 Problem Hyperlipemia E78.5 Active 1105693 4 Problem Other chronic pain G89.29 Active 8 6414623 Problem Severe episode of recurrent major depressive disorder, without psychotic features F33.2 Active 40835548 Problem Insomnia G47.00 Active 067403389 Problem DANIELA (generalized anxiety disorder) F41.1 Active 92584587 Problem Sciatica, right side M54.31 Active [id number] Problem Depressive disorder, not elsewhere classified F32. 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 [facility] [address] [id number], [place] [id number] Aug, Mouth abscess K12.2 ; Mouth ulcer K12.1 ; Bloating R14.0 and Morbid obesity E66.01 [facility] [address] [id number], [place] [id number] Aug, [facility] [address] [id number], [place] [id number] Aug, [facility] [id number] [id number] Jul, Major depressive disorder, recurrent, mo derate F33.1 ; Abscess of arm, left L02.414 and BMI 45.0-49.9, adult Z68.42 [facility] [address] [id number], [place] [id number] Jul, [facility] [address] [id number], [place] [id number] Jul, [facility] [address] [id number], [place] [id number] Jun, Pain in right knee M25.561 and Other chr onic pain G89.[address] [id number], [place] [id number] Jun, Benign essential hypertension I10 ; BMI 45.0-49.9, adult Z68.42 ; Morbid obesity E66.01 ; Vitamin D deficiency E55.9 ; Insomnia G47.00 ; 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 [id number] [address] [place] [phone] 16 Jun, 2018 [facility] [address] [id number], [place] [id number] Jun, Irritable mood R45.4 [facility] [address] [facility] [id number] [address] [place] [phone] 27 May, 2018 [facility] [address] [facility] [id number] [address] [place] [phone] May, [facility] [address] 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 [id number] [address] [place] [phone] 27 Apr, 2018 [facility] [address] [facility] [id number] [address] [place] [phone] Apr, [facility] [address] [facility] [id number] [address] [place] [phone] 14 Apr, 2018 [facility] [address] [facility] [id number] [address] [place] [id number] Apr, [facility] [address] [facility] [id number] [address] [place] [phone] Mar, Mixed obsessional thoughts a nd acts F42.2 ; Recurrent major depressive disorder, in partial remission F33.41 ; DANIELA (generalized anxiety disorder) F41.1 and BMI 45.0-49.9, adult Z68.42 [facility] [address] [id number], [place] [id number] Mar, [facility] [address] [id number], [place] [id number] Mar, BMI 45.0-49.9, adult Z68.42 ; Instabilit y of right knee joint M25.361 and Rash R21 [facility] [address] [facility] [id number] [address] [place] [phone] Jan, Recurrent major depressive d isorder, in partial remission F33.41 ; Mixed obsessional thoughts and acts F42.2 and BMI 45.0-49.9, adult Z68.42 [facility] [address] [id number], [place] [id number] Jan, [facility] [address] [id number], [place] [id number] Jan, Benign essential hypertension I10 ; BMI 45.0-49.9, adult Z68.42 ; Metabolic syndrome E88.81 and Allergic rhinitis, unspecified seasonality, unspecified trigger J30.9 [place] [address] [facility] [id number] [address] [place] [phone] Dec, DANIELA (generalized anxiety dis order) F41.1 and Depressive disorder, not elsewhere classified F32.9 [facility] [address] [id number], [place] [id number] Dec, Recurrent major depressive disorder, in partial remission F33.41 [facility] [address] [id number], [place] [id number] Dec, [facility] [address] [id number], [place] [id number] Nov, [facility] [address] [id number], [place] [id number] Nov, Recurrent major depressive disorder, in partial remission F33.41 [place] [address] [facility] [id number] [address] [place] [phone] Nov, Recurrent major depressive d isorder, in partial remission F33.41 ; Mixed obsessional thoughts and acts F42.2 ; DANIELA (generalized anxiety disorder) F41.1 and BMI 45.0-49.9, adult Z68.42 [facility] [address] [id number], [place] [id number] Nov, [facility] [address] [id number], [place] [id number] Nov, Other conjunctivitis of both eyes H10.89 and Sciatica, right side M54.31 [facility] [address] [id number], [place] [id number] Nov, [facility] [address] [place] [address] AVE [id number], [place] [id number] Nov, [facility] [address] [id number], [place] [id number] October, [facility] [address] [id number], [place] [id number] October, [facility] [address] [facility] [id number] [place] [address] October, BMI 45.0-49.9, adult Z68.42 ; Mixed obsessional thoughts and acts F42.2 ; Recurrent major depressive disorder, in partial remission F33.41 and DANIELA (generalized anxiety disorder) F41.1 [facility] [address] [address] [facility] [address] [id number], [place] [id number] October, Benign essential hypertension I10 ; Morb id obesity E66.01 and BMI 45.0-49.9, adult Z68.42 [facility] [address] [id number], [place] [id number] Sep, [facility] [address] [id number], [place] [id number] Sep, [facility] [address] [id number], [place] [id number] Sep, [facility] [address] [id number], [place] [id number] Sep, Hospital discharge follow-up Z09 ; Aller gic rhinitis, unspecified seasonality, unspecified trigger J30.9 and Shortness of breath R06.02 [facility] [address] [id number], [place] [id number] 10 Sep, 2017 Recurrent major depressive disorder, in partial remission F33.41 [place] [address] [facility] [address] [id number], [place] [id number] 15 Aug, 2017 Irritable mood R45.4 [place] [address] [facility] [id number] [address] [place] [phone] Aug, [address] [id number], [place] [id number] Jul, Benign essential hypertension I10 ; Robert a R60.9 and Impacted cerumen of left ear H61.22 [place] [address] [place] [id number] [address] [place] [phone] 14 Jul, 2017 Major depression F32.9 ; Rec urrent major depressive disorder, in partial remission F33.41 and Anxiety F41.9 [place] [address] [facility] [id number] [address] [place] [phone] Jun, Major depression F32.9 ; Rec urrent major depressive disorder, in partial remission F33.41 and Anxiety F41.[address] [id number], [place] [id number] Jun, Major depression F32.9 ; Morbid obesity E66.01 ; Irritable mood R45.4 ; Hand weakness R29.898 and Vitamin D deficiency E55.9 [facility] [address] [facility] [address] [id number], [place] [id number] Jun, [address] [id number], [place] [id number] May, Major depression F32.9 [place] [address] [facility] [id number] [address] [place] [phone] May, Major depression F32.[address] [facility] [address] [id number], [place] [id number] May, BMI 50.0-59.9, adult Z68.43 ; Major depr ession F32.9 ; Anxiety F41.9 ; Hypertrophic toenail L60.2 and Pain of left great toe M79.675 [facility] [address] [id number], [place] [id number] May, Recurrent major depressive disorder, in partial remission F33.41 [facility] [address] [facility] [id number] [address] [place] [phone] Apr, [facility] [id number] [place] [address] [id number] Apr, [facility] [address] [facility] [id number] [address] [place] [address] Apr, Major depression F32.9 [facility] [id number] [place] [address] [id number] Apr, Severe episode of recurrent major depres sive disorder, without psychotic features F33.2 ; Anxiety F41.9 and Insomnia G47.00 [facility] [id number] [place] [address] [id number] Apr, [facility] [address] [facility] [id number] [address] [place] [phone] Apr, [facility] [address] [id number], [place] [id number] Apr, [facility] [address] [id number], [place] [id number] Mar, [facility] [id number] [place] [address] [id number] Mar, Allergic conjunctivitis of both eyes H10 .13 [facility] [address] [facility] [id number] [address] [place] [address] Mar, Major depression F32.9 [facility] [id number] [place] [address] [id number] Mar, Metabolic syndrome E88.81 ; History of g astric bypass Z98.890 ; Benign essential hypertension I10 and Allergic conjunctivitis of both eyes H10.13 [place] [address] [place] [id number] [address] [place] [phone] Mar, Major depression F32.[address] [id number] [place] [address] [id number] Feb, [place] [address] [place] [phone] Feb, Major depression F32.[address] [id number] [place] [address] [id number] Feb, Subacute maxillary sinusitis J01.00 and Bronchitis J40 [place] [address] [place] [address] Feb, Major depressive disorder, r ecurrent, moderate F33.1 [place] [address] [facility] [address] [id number] [place] [address] [id number] Jan, [address] [id number] [place] [address] [id number] Jan, Acute non-recurrent maxillary sinusitis J01.00 and Skin tag L91.[address] [id number] [place] [address] [id number] Jan, Cough R05 and Sinus congestion R09.[address] [id number] [place] [id number] Jan, [address] [id number] [place] [address] [id number] Jan, Benign essential hypertension I10 ; Hist ory of gastric bypass Z98.890 and Nausea and vomiting in adult R11.2 [place] [address] [facility] [id number] [address] [place] [phone] Jan, Major depressive disorder, r ecurrent, moderate F33.1 [place] [address] [place] [id number] [address] [place] [phone] Dec, Insomnia G47.00 ; Recurrent major depressive disorder, in partial remission F33.41 and Morbid obesity E66.01 [facility] [address] [facility] [address] [id number], [place] [id number] Dec, [address] [id number], [place] [id number] Dec, Chronic bacterial conjunctivitis of left eye H10.[address] [id number], [place] [id number] Nov, [address] [id number] [place] [address] [id number] Nov, Dental examination Z01.[address] [id number], [place] [id number] Nov, Benign essential hypertension I10 ; Hist ory of gastric bypass Z98.890 and Nausea and vomiting in adult R11.2 [place] [address] [place] [phone] Nov, Major depressive disorder, r ecurrent, moderate F33.1 ; Generalized anxiety disorder F41.1 and Insomnia due to other mental disorder F51.05 [place] [address] [place] [id number] [address] [place] [phone] Nov, Recurrent major depressive d isorder, in partial remission F33.41 ; Insomnia G47.00 and Morbid obesity E66.01 [facility] [address] [id number] [place] [id number] October, Abscess of left arm L02.414 [place] [address] [place] [id number] [place] [phone] October, Morbid obesity E66.01 ; Lida r depression F32.9 and Recurrent major depressive disorder, in partial remission F33.41 [place] [address] [facility] [address] [id number], [place] [id number] Sep, Benign essential hypertension I10 ; Morb id obesity E66.01 ; S/P gastric bypass Z98.84 ; Abscess L02.91 and Chronic bacterial conjunctivitis of left eye H10.[address] [facility] [address] [id number], [place] [id number] Sep, Dental examination Z01.20 [place] [address] [facility] [id number] [address] [place] [address] Sep, Morbid obesity E66.01 ; Lida r depression F32.9 and Recurrent major depressive disorder, in partial remission F33.41 [place] [address] [facility] [id number] [address] [place] [phone] Jul, [place] [address] [facility] [id number] [address] [place] [phone] Jul, Major depressive disorder, r ecurrent, moderate F33.1 [place] [address] [place] [id number] [address] [place] [phone] Jul, Major depressive disorder, r ecurrent, moderate F33.1 and Generalized anxiety disorder F41.[address] [id number], [place] [id number] Jul, Cough R05 [place] [address] [facility] [id number] [address] [place] [phone] Jul, Morbid obesity E66.01 ; Lida r depression F32.9 and Recurrent major depressive disorder, in partial remission F33.[address] [facility] [address] [id number], [place] [id number] Jul, [facility] [address] [id number], [place] [id number] Jul, [facility] [address] [id number], [place] [id number] Jul, Gastroenteritis K52.9 and Cough R05 [place] [address] [id number], [place] [id number] Jun, Acute bacterial conjunctivitis of left e ye H10.32 [place] [address] [facility] [id number] [address] [place] [phone] Jun, [place] [address] [facility] [id number] [address] [place] [phone] Jun, Recurrent major depressive d isorder, in partial remission F33.41 [place] [address] [facility] [id number] [address] [place] [phone] May, Major depression F32.9 and M orbid obesity E66.01 [place] [address] [facility] [id number] [address] [place] [phone] May, [place] [id number] [place] [address] [id number] May, Thrush B37.0 [place] [address] [place] [id number] [address] [place] [phone] Apr, Major depressive disorder, r ecurrent, moderate F33.1 [place] [address] [place] [id number] [address] [place] [phone] Apr, Insomnia G47.00 ; Major depr ession F32.9 and Recurrent major depressive disorder, in partial remission F33.41 [place] [address] [place] [id number] [address] [place] [phone] Apr, [place] [address] [facility] [id number] [address] [place] [phone] Apr, Major depression F32.9 and R ecurrent major depressive disorder, in partial remission F33.[address] [facility] [address] [id number], [place] [id number] Mar, Benign essential hypertension I10 ; Morb id obesity E66.01 ; Impacted cerumen of both ears H61.23 ; Laceration of finger of right hand, initial encounter S61.219A and Encounter for immunization Z23 [place] [address] [facility] [id number] [address] [place] [phone] Mar, [facility] [address] [facility] [id number] [address] [place] [phone] Mar, [facility] [address] [facility] [id number] [address] [place] [phone] Mar, [facility] [address] [id number], [place] [id number] Feb, Nausea R11.0 ; Blood in the stool K92.1 and Benign essential hypertension I10 [facility] [address] [facility] [id number] [address] [place] [phone] Feb, Major depression F32.9 and R ecurrent major depressive disorder, in partial remission F33.41 [facility] [address] [id number], [place] [id number] Feb, [facility] [address] [id number], [place] [id number] Feb, Recurrent major depressive disorder, in partial remission F33.41 [facility] [address] [id number], [place] [id number] Jan, [facility] [address] [id number], [place] [id number] Jan, Benign essential hypertension I10 ; Robert a R60.9 and Hyperlipidemia, unspecified hyperlipidemia type E78.5 [facility] [address] [id number], [place] [id number] Jan, Recurrent major depressive disorder, in partial remission F33.41 [facility] [place] [address] [id number] [place] [id number] Jan, [facility] [address] [id number], [place] [id number] Jan, [facility] [address] [id number] [id number] Jan, [facility] [address] [facility] [id number] [address] [place] [id number] Jan, [facility] [address] [facility] [id number] [address] [place] [phone] Dec, [facility] [address] [facility] [id number] [address] [place] [id number] Nov, [facility] [address] [facility] [id number] [address] [place] [id number] Nov, Major depression F32.9 [facility] [address] [facility] [id number] [address] [place] [phone] Nov, [facility] [address] [facility] [id number] [address] [place] [phone] Nov, [place] [address] [place] [id number] [address] [place] [id number] Nov, Major depressive disorder, r ecurrent episode, mild F33.0 and Anxiety F41.[address] [place] [id number] [place] [id number] Nov, [place] [id number] [place] [id number] October, Left elbow pain M25.522 and Other season al allergic rhinitis J30.[id number] [place] [id number] October, [place] [address] [facility] [id number] [address] [place] [id number] October, Major depressive disorder, r ecurrent, moderate F33.1 [facility] [address] [facility] [id number] [address] [place] [id number] October, Major depression F32.9 [place] [address] [facility] [id number] [address] [place] [address] [id number] Sep, [place] or callus L84 and Onych omycosis B35.1 [facility] [address] [facility] [id number] [address] [place] [id number] Sep, Major depressive disorder, r ecurrent, moderate F33.1 [facility] [address] [facility] [id number] [address] [place] [id number] 18 Sep, 2015 Major depression F32.9 [facility] [address] [facility] [id number] [address] [place] [id number] 13 Sep, 2015 Moderate episode of recurren t major depressive disorder F33.[address] [facility] [address] [id number] [id number] Sep, Muscle strain T14.8 [facility] [address] [facility] [id number] [address] [place] [id number] Aug, Major depression F32.9 [facility] [address] [facility] [id number] [address] [place] [id number] Aug, Major depression F32.9 [facility] [address] [facility] [id number] [address] [place] [id number] Jul, Morbid obesity E66.01 and Ma cora depression F32.9 [facility] [address] [facility] [id number] [address] [place] [id number] Jul, Depression, major, recurrent , moderate F33.1 [facility] [address] [facility] [address] [address] [id number] [id number] Jul, [facility] [address] [facility] [id number] [address] [place] [id number] Jul, [facility] [address] [facility] [id number] [address] [place] [id number] Jul, Major depression F32.9 and M orbid obesity E66.01 [facility] [address] [id number] [id number] 11 Jul, 2015 Type II diabetes mellitus E11.9 ; Callus of foot L84 ; Benign essential hypertension I10 and Renal insufficiency N28.9 [facility] [address] [facility] [id number] [address] [place] [id number] 09 Jul, 2015 Depression, major, recurrent , moderate F33.1 [facility] [address] [facility] [id number] [address] [place] [phone] Jul, Major depression F32.9 [facility] [address] [facility] [id number] [address] [place] [id number] Jul, [facility] [address] [facility] [id number] [address] [place] [phone] Jun, Major depression F32.9 [facility] [address] [facility] [id number] [address] [place] [phone] Jun, Major depressive disorder, r ecurrent, moderate F33.1 [place] [address] [facility] [id number] [address] [place] [id number] Jun, [facility] [address] [facility] [id number] [address] [place] [id number] Jun, Major depressive disorder, r ecurrent, moderate F33.1 and Major depression F32.[address] [facility] [id number] [place] [id number] Jun, Type II diabetes mellitus E11.9 [place] [address] [facility] [id number] [address] [place] [phone] Jun, Depression, major, recurrent , moderate F33.1 [place] [address] [facility] [id number] [address] [place] [phone] May, Major depressive disorder, r ecurrent, moderate F33.1 [facility] [address] [facility] [id number] [address] [place] [id number] May, [facility] [address] [id number] [id number] May, Edema R60.9 [facility] [address] [facility] [id number] [address] [place] [id number] May, Insomnia G47.00 and Major de pression F32.9 [facility] [address] [id number] [id number] 15 May, 2015 Morbid obesity E66.01 ; Edema R60.9 ; Sh ortness of breath R06.02 ; Benign essential hypertension I10 and Renal insufficiency N28.9 [facility] [address] [id number] [id number] May, Hyperlipemia 272.4 and Renal insufficien cy N28.9 [facility] [address] [facility] [id number] [address] [place] [phone] Apr, Major depression F32.9 [facility] [address] [facility] [id number] [address] [place] [id number] Apr, [facility] [address] [facility] [id number] [address] [place] [phone] Apr, Major depressive disorder, r ecurrent, moderate F33.[id number] [place] [id number] Apr, Type II diabetes mellitus E11.9 ; Benign essential hypertension I10 ; Edema R60.9 and Renal insufficiency N28.9 [place] [address] [facility] [id number] [address] [place], [place] [id number] Mar, Major depressive disorder, r ecurrent, moderate F33.1 [place] [address] [facility] [id number] [address] [place] [id number] Mar, [facility] [address] [facility] [id number] [address] [place] [id number] Mar, Major depression F32.9 [facility] [address] [place] [address] A[id number] [place] [address] [id number] Mar, Morbid obesity E66.01 ; Benign essential hypertension I10 and Type II diabetes mellitus E11.9 [facility] [address] [facility] [id number] [address] [place] [phone] Feb, Major depressive disorder, r ecurrent, moderate F33.1 [place] [address] [address] [facility] [id number] [address] [place] [phone] Feb, Major depressive disorder, r ecurrent episode, in partial or unspecified remission 296.35 ; Anxiety state, unspecified 300.00 and Morbid obesity 278.01 [facility] [address] [facility] [id number] [address] [place] [phone] Feb, [address] [id number] [id number] Feb, Vomiting 787.03 and Viral syndrome 079.9 9 [facility] [address] [facility] [id number] [address] [place] [id number] 15 Feb, 2015 Major depression, recurrent 296.30 ; Generalized anxiety disorder 300.02 and No condition on [place] V71.[id number] [place] [address] [id number] Feb, Skin tag 701.9 [facility] [address] [place] [id number] [address] [place] [phone] Feb, [facility] [address] [place] [id number] [address] [place] [address] Jan, Depression, major, recurrent , moderate 296.[id number] [place] [address] [id number] Jan, Nausea and vomiting 787.01 ; Rib pain on right side 786.50 and Fall on or from sidewalk curb E880.1 [facility] [address] [place] [id number] [address] [place] [phone] Jan, [facility] [address] [place] [id number] [address] [place] [phone] Jan, Major depressive disorder, r ecurrent episode, in partial or unspecified remission 296.35 and Anxiety state, unspecified 300.[address] [id number] [id number] Jan, [facility] [address] [place] [id number] [address] [place] [phone] Jan, Depression, major, recurrent , moderate 296.32 [place] [id number] [address] [place] [phone] Jan, Major depression, recurrent 296.30 ; No condition on [place] II V71.09 and No condition on axis III V71.09 [place] [address] [facility] [id number] [id number] Jan, Drug-induced nausea and vomiting 787.01 [place] [id number] [address] [place] [address] Jan, Depression, major, recurrent , moderate 296.[address] [address] Dec, Depression, major, recurrent , moderate 296.32 [facility] [address] [place] [address] AVE [id number] [id number] Dec, Morbid obesity 278.01 ; Metabolic syndro me 277.7 ; Hyperlipemia 272.4 ; Benign essential hypertension 401.1 ; Dietary counseling V65.3 ; Exercise counseling V65.41 and Inflamed skin tag 701.9 [place] [id number] [address] [place] [phone] Dec, Depression, major, recurrent , moderate 296.32 [place] [id number] [address] [place] [address] Dec, [address] [address] Dec, Major depression, recurrent 296.30 ; Anxiety, generalized 300.02 and No condition on [place] V71.[address] [address] Dec, Depression, major, recurrent , moderate 296.32 [place] [id number] [address] [place] [phone] Dec, Major depressive disorder, r ecurrent episode, moderate 296.32 [place] [address] [address] Dec, Depression, major, recurrent , moderate 296.32 [place] [address] [address] [place] [id number] Dec, Depression, major, recurrent , moderate 296.32 [place] [address] [address] Dec, Depression, major, recurrent , moderate 296.32 [place] [address] [address] Dec, Depression, major, recurrent , moderate 296.32 [place] [address] [address] [place] 6[address] Nov, Depression, major, recurrent , moderate 296.32 [place] [address] [address] Nov, Major depression 296.20 ; So cial phobia 300.23 and No condition on [place] V71.09 [place] [address] [address] Nov, Depression, major, recurrent , moderate 296.32 [place] [address] [address] Nov, Major depressive disorder, r ecurrent episode, moderate 296.32 and Generalized anxiety disorder 300.02 [place] [address] [address] Nov, Depression, major, recurrent , moderate 296.32 [place] [address] [address] Nov, Depression, major, recurrent , moderate 296.32 [place] [address] [address] October, Generalized anxiety disorder 300.02 ; No condition on [place] V71.09 and Major depressive disorder, recurrent 296.30 [facility] [address] [id number] [address] [place] [address], [place] [address] 14 Sep, 2014 [facility] [address] [id number] [address] [place] [address], [place] [address] 13 Sep, 2014 [facility] [address] [id number] [address] [place] [address], [place] [address] 24 Aug, 2014 [facility] [address] [id number] [address] [place] [address], [place] [address] 24 Aug, 2014 [facility] [address] [id number] [address] [place] [address], [place] [address] 23 Aug, 2014 [facility] [address] [id number] [address] [place] [address], [place] [address] 23 Aug, 2014 [facility] [address] [id number] [address] [place] [address], [place] [address] 20 Aug, 2014 [facility] [address] [id number] [address] [place] [address], [place] [address] 20 Aug, 2014 [facility] [address] [id number] [address] [place] [address], [place] [address] 20 Aug, 2014 [facility] [address] [id number] [address] [place] [id number] 20 Aug, 2014 [facility] [address] [id number] [address] [place] [id number] 13 Aug, 2014 [facility] [address] [id number] [address] [place] [id number] 13 Aug, 2014 [facility] [address] [id number] [address] [place] [address], [place] [address] 13 Aug, 2014 [facility] [address] [id number] [address] [place] [id number] 13 Aug, 2014 [facility] [address] [id number] [address] [place] [id number] 12 Aug, 2014 [facility] [address] [id number] [address] [place] [id number] Aug, [facility] [address] [id number] [address] [place] [address], [place] [address] Aug, [facility] [address] [id number] [address] [place] [address], [place] [address] Aug, [facility] [address] [id number] [address] [place] [address], [place] [address] Aug, [facility] [address] [id number] [address] [place] [address], [place] [address] Aug, [facility] [address] [id number] [address] [place] [address], [place] [address] Jul, [facility] [address] [id number] [address] [place] [address], [place] [address] Jul, [facility] [address] [id number] [address] [place] [address], [place] [address] Jul, [facility] [address] [id number] [address] [place] [address], [place] [address] Jul, [facility] [address] [id number] [address] [place] [address], [place] [address] Jul, [facility] [address] [id number] [address] [place] [address], [place] [address] Jul, [facility] [address] [id number] [address] [place] [address], [place] [address] Jun, [facility] [address] [id number] [address] [place] [address], [place] [address] Jun, [facility] [address] [id number] [address] [place] [address], [place] [address] Jun, [facility] [address] [id number] [address] [place] [address], [place] [address] Jun, [facility] [address] [id number] [address] [place] [address], [place] [address] Jun, [facility] [address] [id number] [address] [place] [address], [place] [address] Jun, [facility] [address] [id number] [address] [place] [address], [place] [address] Jun, [facility] [address] [id number] [address] [place] [address], [place] [address] Jun, [facility] [address] [id number] [address] [place] [address], [place] [address] Jun, [facility] [address] [id number] [address] [place] [address], [place] [address] Jun, [facility] [address] [id number] [address] [place] [address], [place] [address] Jun, [facility] [address] [id number] [address] [place] [address], [place] [address] Jun, [facility] [address] [id number] [place] [id number] Jun, [facility] [address] [id number] [address] [place] [address], [place] [address] Jun, [facility] [address] [id number] [address] [place] [address], [place] [address] Jun, [facility] [address] [id number] [address] [place] [address], [place] [address] Jun, [facility] [address] [id number] [address] [place] [address], [place] [address] May, [facility] [address] [id number] [address] [place] [address], [place] [address] May, [facility] [address] [id number] [address] [place] [address], [place] [address] May, [facility] [address] [id number] [address] [place] [address], [place] [address] May, [facility] [address] [id number] [address] [place] [address], [place] [address] Apr, [facility] [address] [id number] [address] [place] [address], [place] [address] Apr, [facility] [address] [id number] [address] [place] [address], [place] [address] Apr, [facility] [address] [id number] [address] [place] [address], [place] [address] Apr, [facility] [address] [id number] [address] [place] [address], [place] [address] Apr, [facility] [address] [id number] [address] [place] [address], [place] [address] Apr, [facility] [address] [id number] [address] [place] [address], [place] [address] Apr, [facility] [address] [id number] [address] [place] [address], [place] [address] Apr, [facility] [address] [id number] [address] [place] [id number] Apr, [facility] [address] [id number] [address] [place] [address] Apr, [facility] [address] [id number] [address] [place] [address] Apr, [facility] [address] [id number] [address] [place] [address] Apr, [facility] [address] [id number] [address] [place] [id number] Apr, [facility] [address] [id number] [address] [place] [address], [place] [address] Apr, [facility] [address] [id number] [address] [place] [address] Apr, [facility] [address] [id number] [address] [place] [address] Apr, [facility] [address] [id number] [address] [place] [address], [place] [address] Apr, [facility] [address] [id number] [address] [place] [address], [place] [address] Apr, [facility] [address] [id number] [address] [place] [address], [place] [address] Apr, [facility] [address] [id number] [address] [place] [address], [place] [address] Apr, [facility] [address] [id number] [address] [place] [address], [place] [address] Mar, [facility] [address] [id number] [address] [place] [address], [place] [address] Mar, [facility] [address] [id number] [address] [place] [address], [place] [address] Mar, [facility] [address] [id number] [address] [place] [address], [place] [address] Mar, [facility] [address] [id number] [address] [place] [address], [place] [address] Mar, [facility] [address] [id number] [address] [place] [address], [place] [address] Mar, [facility] [address] [id number] [address] [place] [address], [place] [address] Mar, [facility] [address] [id number] [address] [place] [address], [place] [address] Mar, [facility] [address] [id number] [address] [place] [address], [place] [address] Mar, [facility] [address] [id number] [address] [place] [address], [place] [address] Mar, [facility] [address] [id number] [address] [place] [address], [place] [address] Feb, [facility] [address] [id number] [address] [place] [address], [place] [address] Feb, [facility] [address] [id number] [address] [place] [address], [place] [address] Feb, [facility] [address] [id number] [address] [place] [address], [place] [address] Feb, [facility] [address] [id number] [address] [place] [address], [place] [address] Jan, [facility] [address] [id number] [address] [place] [address], [place] [address] Jan, [facility] [address] [id number] [address] [place] [address], [place] [address] Jan, [facility] [address] [id number] [address] [place] [address], [place] [address] Jan, [facility] [address] [id number] [address] [place] [address], [place] [address] Jan, [facility] [address] [id number] [address] [place] [address], [place] [address] Jan, [facility] [address] [id number] [address] [place] [address], [place] [address] Dec, [facility] [address] [id number] [address] [place] [address], [place] [address] Dec, [facility] [address] [id number] [address] [place] [address], [place] [address] Nov, [facility] [address] [id number] [address] [place] [address], [place] [address] Nov, [facility] [address] [id number] [address] [place] [address], [place] [address] Nov, [facility] [address] [id number] [address] [place] [address], [place] [address] Nov, [facility] [address] [id number] [address] [place] [address], [place] [address] Nov, [facility] [address] [id number] [address] [place] [address], [place] [address] Nov, [facility] [address] [id number] [address] [place] [address], [place] [address] Sep, [facility] [address] [id number] [address] [place] [address], [place] [address] Sep, [facility] [address] [id number] [address] [place] [address], [place] [address] Sep, [facility] [address] [id number] [address] [place] [address], [place] [address] Sep, [facility] [address] [id number] [address] [place] [address], [place] [address] Aug, [facility] [address] [id number] [address] [place] [address], [place] [address] Aug, [facility] [address] [id number] [address] [place] [address], [place] [address] Jul, [facility] [address] [id number] [address] [place] [address], [place] [address] Jul, [facility] [address] [id number] [address] [place] [address], [place] [address] Jun, [facility] [address] [id number] [address] [place] [address], [place] [address] Jun, [facility] [address] [id number] [address] [place] [address], [place] [address] Jun, [facility] [address] [id number] [address] [place] [address], [place] [address] Jun, [facility] [address] [id number] [address] [place] [address], [place] [address] May, [facility] [address] [id number] [address] [place] [address], [place] [address] May, [facility] [address] [id number] [address] [place] [address], [place] [id number] May, [facility] [address] [id number] [address] [place] [address], [place] [id number] 13 May, 2013 [facility] [address] [id number] [address] [place] [address], [place] [address] May, [facility] [address] [id number] [address] [place] [address], [place] [id number] May, [facility] [address] [id number] [address] [place] [address], [place] [id number] Apr, [facility] [address] [id number] [address] [place] [address], [place] [address] Apr, [facility] [address] [id number] [address] [place] [address], [place] [address] Apr, [facility] [address] [id number] [address] [place] [address], [place] [address] Apr, [facility] [address] [id number] [address] [place] [address], [place] [address] Mar, [facility] [address] [id number] [address] [place] [address], [place] [address] Mar, [facility] [address] [id number] [address] [place] [address], [place] [address] Mar, [facility] [address] [id number] [address] [place] [address], [place] [id number] Mar, [facility] [address] [id number] [address] [place] [address], [place] [address] Feb, [facility] [address] [id number] [place] [id number] Jan, [facility] [address] [id number] [address] [place] [address], [place] [address] Jan, [facility] [address] [id number] [address] [place] [address], [place] [address] Dec, [facility] [address] [id number] [address] [place] [address], [place] [address] Dec, [facility] [address] [id number] [address] [place] [id number] 10 Dec, 2012 [facility] [address] [id number] [place] [id number] Dec, 2012 [facility] [address] [id number] [address] [place] [id number] 17 Nov, 2012 [facility] [address] [id number] [address] [place] [id number] 14 Nov, 2012 [facility] [address] [id number] [address] [place] [id number] Nov, [facility] [address] [id number] [address] [place] [id number] Nov, [facility] [address] [facility] [id number] [address] [place] [id number] Nov, [facility] [address] [id number] [address] [place] [id number] October, [facility] [address] [facility] [id number] [address] [place] [phone] October, [facility] [address] [facility] [id number] [address] [place] [id number] Aug, [facility] [address] [facility] [id number] [address] [place] [id number] Nov, IMMUNIZATIONS No Known Immunizations SOCIAL HISTORY Never Assessed [place]ASON FOR [place] [place] VITAL SIGNS MEDICATIONS Unknown [...] 03/2016 Hospitalization History gastric sleeve Hospitalization History [facility] Trouble with left shoulder blade 08/2017
--- OUTSIDE RECORDS SUMMARY | 2019-11-29 09:21 | XMS REPORT ---
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 9 Active 68142914 Problem BMI 45.0-49.9, adult Z68.42 Active 261315968 Problem Mixed obsessional thoughts and acts F42.2 Active 09444746 Problem Sciatica, right side M54.31 Active [id number] Problem DANIELA (generalized anxiety disorder) F41.1 Active 70951317 Problem Hyperlipemia E78.5 Active 3613947 4 Problem Morbid obesity E66.01 Active 92775 6002 Problem Insomnia G47.00 Active 013597206 Problem Major depression F32.9 Active 370 425536 Problem Edema R60.9 Active 744315715 Problem Callus of foot L84 Active 58497 1005 Problem Benign essential hypertension I10 Active 1081160 Problem Recurrent major depressive disorder, in partial remission F33.41 Active 52851945 Problem Renal insufficiency N28.9 Active 984541376 Problem Metabolic syndrome E88.81 Active 2 86696768 ALLERGIES Substance Reaction Event Type Date Status Russell Elm throat swells Drug Allergy May, Active Peanut (Diagnostic) throat swells Drug Allergy May, Active Egg White (Diagnostic) throat swells Drug Allergy May, Acti ve alternaria tenuis throat swells Non Drug Allergy May, Activ e Cows Milk throat swells Non Drug Allergy May, Active Wheat throat swells Non Drug Allergy May, Active Ragweed throat swells Non Drug Allergy May, Active ENCOUNTERS Encounter Location Date Diagnosis [facility] [id number] [place] [address] Jun, [facility] [id number] [place] [address] Jun, [facility] [id number] [place] [address] [id number] May, [facility] [id number] [place] [address] May, Recurrent major depressive d isorder, in partial remission F33.41 ; Mixed obsessional thoughts and acts F42.2 ; 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 and BMI 45.0-49.9, adult Z68.42 [facility] [id number] [place] [address] 27 Apr, 2018 [facility] [id number] [place] [phone] 16 Apr, 2018 [facility] [id number] [place] [address] 14 Apr, 2018 [facility] [id number] [place] [address] Apr, [place] [address] [place] [address] [id number] [place] [address] 25 Mar, 2018 Mixed obsessional thoughts a nd acts F42.2 ; Recurrent major depressive disorder, in partial remission F33.41 ; DANIELA (generalized anxiety disorder) F41.1 and BMI 45.0-49.9, adult Z68.42 [facility] [address] [id number], [place] [id number] Mar, [facility] [address] [id number][place] [id number] Mar, BMI 45.0-49.9, adult Z68.42 ; Instabilit y of right knee joint M25.361 and Rash R21 [place] [address] [address] [facility] [id number] [address] [place] [address] Jan, Recurrent major depressive d isorder, in partial remission F33.41 ; Mixed obsessional thoughts and acts F42.2 and BMI 45.0-49.9, adult Z68.[address] [id number], [place] [id number] Jan, [facility] [address] [id number], [place] [id number] Jan, Benign essential hypertension I10 ; BMI 45.0-49.9, adult Z68.42 ; Metabolic syndrome E88.81 and Allergic rhinitis, unspecified seasonality, unspecified trigger J30.9 [place] [address] [facility] [id number] [address] [place] [address] Dec, DANIELA (generalized anxiety dis order) F41.1 and Depressive disorder, not elsewhere classified F32.[address] [id number], [place] [id number] Dec, Recurrent major depressive disorder, in partial remission F33.41 [facility] [address] [id number], [place] [id number] Dec, [facility] [address] [id number], [place] [id number] Nov, [facility] [address] [id number], [place] [id number] Nov, Recurrent major depressive disorder, in partial remission F33.41 [place] [address] [facility] [id number] [address] [place] [address] Nov, Recurrent major depressive d isorder, in partial remission F33.41 ; Mixed obsessional thoughts and acts F42.2 ; DANIELA (generalized anxiety disorder) F41.1 and BMI 45.0-49.9, adult Z68.42 [facility] [address] [id number], [place] [id number] Nov, [address] [id number], [place] [id number] Nov, Other conjunctivitis of both eyes H10.89 and Sciatica, right side M54.31 [facility] [address] [id number], [place] [id number] Nov, [facility] [address] [place] [address] AVE [id number], [place] [id number] Nov, [facility] TORRIE [address] [place] [address] AVE [id number], [place] [id number] October, [facility] [address] [id number], [place] [id number] October, [facility] [address] [facility] [id number] [place] [address] October, BMI 45.0-49.9, adult Z68.42 ; Mixed obsessional thoughts and acts F42.2 ; Recurrent major depressive disorder, in partial remission F33.41 and DANIELA (generalized anxiety disorder) F41.1 [facility] [address] [id number], [place] [id number] October, Benign essential hypertension I10 ; Morb id obesity E66.01 and BMI 45.0-49.9, adult Z68.42 [facility] T[address]RIE [address] [place] [address] AVE [id number], [place] [id number] Sep, [facility] [address] [place] [address] AVE [id number], [place] [id number] Sep, [facility] [address] [id number], [place] [id number] Sep, [facility] [address] [id number], [place] [id number] Sep, Hospital discharge follow-up Z09 ; Aller gic rhinitis, unspecified seasonality, unspecified trigger J30.9 and Shortness of breath R06.02 [facility] TORRIE [address] [place] [address] AVE [id number], [place] [id number] Sep, Recurrent major depressive disorder, in partial remission F33.[address] [id number], [place] [id number] Aug, Irritable mood R45.4 [place] [address] [facility] [id number] [address] [place] [address] Aug, [id number] [place] [address] [id number] Jul, Benign essential hypertension I10 ; Robert a R60.9 and Impacted cerumen of left ear H61.22 [place] [address] [facility] [id number] [address] [place] [address] 14 Jul, 2017 Major depression F32.9 ; Rec urrent major depressive disorder, in partial remission F33.41 and Anxiety F41.9 [place] [address] [facility] [id number] [address] [place] [address] Jun, Major depression F32.9 ; Rec urrent major depressive disorder, in partial remission F33.41 and Anxiety F41.[id number] [place] [address] [id number] Jun, Major depression F32.9 ; Morbid obesity E66.01 ; Irritable mood R45.4 ; Hand weakness R29.898 and Vitamin D deficiency E55.[address] [id number], [place] [id number] Jun, [address] [address] [address] [id number], [place] [id number] May, Major depression F32.9 [place] [address] [facility] [id number] [address] [place] [address] May, Major depression F32.[address] [id number], [place] [id number] May, BMI 50.0-59.9, adult Z68.43 ; Major depr ession F32.9 ; Anxiety F41.9 ; Hypertrophic toenail L60.2 and Pain of left great toe M79.675 [facility] [address] [id number], [place] [id number] May, Recurrent major depressive disorder, in partial remission F33.41 [facility] [address] [facility] [id number] [address] [place] [address] Apr, [facility] [address] [id number], [place] [id number] Apr, [facility] [address] [facility] [id number] [address] [place] [address] Apr, Major depression F32.9 [facility] [id number] [place] [address] [id number] Apr, Severe episode of recurrent major depres sive disorder, without psychotic features F33.2 ; Anxiety F41.9 and Insomnia G47.00 [facility] [id number] [place] [address] [id number] Apr, [facility] [address] [facility] [id number] [address] [place] [address] Apr, [facility] [address] [id number], [place] [id number] Apr, [facility] [address] [id number], [place] [id number] Mar, [facility] [id number] [place] [address] [id number] Mar, Allergic conjunctivitis of both eyes H10 .13 [facility] [address] [facility] [id number] [address] [place] [address] Mar, Major depression F32.9 [facility] [id number] [place] [address] [id number] Mar, Metabolic syndrome E88.81 ; History of g astric bypass Z98.890 ; Benign essential hypertension I10 and Allergic conjunctivitis of both eyes H10.13 [facility] [address] [facility] [id number] [address] [place] [address] Mar, Major depression F32.9 [facility] [address] [facility] [address] [id number] [place] [address] [id number] Feb, [facility] [address] [facility] [id number] [address] [place] [address] Feb, Major depression F32.[id number] [place] [address] [id number] Feb, Subacute maxillary sinusitis J01.00 and Bronchitis J40 [place] [address] [facility] [id number] [address] [place] [address] Feb, Major depressive disorder, r ecurrent, moderate F33.[id number] [place] [address] [id number] Jan, [address] [id number] [place] [address] [id number] Jan, Acute non-recurrent maxillary sinusitis J01.00 and Skin tag L91.[id number] [place] [address] [id number] Jan, Cough R05 and Sinus congestion R09.[address] [id number] [place] [address] [id number] Jan, [address] [id number] [place] [address] [id number] Jan, Benign essential hypertension I10 ; Hist ory of gastric bypass Z98.890 and Nausea and vomiting in adult R11.2 [facility] [address] [facility] [id number] [address] [place] [address] Jan, Major depressive disorder, r ecurrent, moderate F33.1 [facility] [address] [facility] [id number] [address] [place] [address] Dec, Insomnia G47.00 ; Recurrent major depressive disorder, in partial remission F33.41 and Morbid obesity E66.01 [facility] [address] [id number], [place] [id number] Dec, [facility] [address] [id number], [place] [id number] Dec, Chronic bacterial conjunctivitis of left eye H10.402 [facility] [address] [id number], [place] [id number] Nov, [address] [id number], [place] [id number] Nov, Dental examination Z01.[address] [id number], [place] [id number] Nov, Benign essential hypertension I10 ; Hist ory of gastric bypass Z98.890 and Nausea and vomiting in adult R11.2 [address] [address] [address] [place] [address] 13 Nov, 2016 Major depressive disorder, r ecurrent, moderate F33.1 ; Generalized anxiety disorder F41.1 and Insomnia due to other mental disorder F51.05 [address] [address] [address] [place] [address] 12 Nov, 2016 Recurrent major depressive d isorder, in partial remission F33.41 ; Insomnia G47.00 and Morbid obesity E66.01 [facility] [address] [facility] [id number] [place], [place] [id number] October, Abscess of left arm L02.414 [address] [address] [place] [address] October, Morbid obesity E66.01 ; Lida r depression F32.9 and Recurrent major depressive disorder, in partial remission F33.41 [address] [id number], [place] [id number] Sep, Benign essential hypertension I10 ; Morb id obesity E66.01 ; S/P gastric bypass Z98.84 ; Abscess L02.91 and Chronic bacterial conjunctivitis of left eye H10.[address] [id number], [place] [id number] Sep, Dental examination Z01.20 [address] [address] [address] [id number] [place] [address] Sep, Morbid obesity E66.01 ; Lida r depression F32.9 and Recurrent major depressive disorder, in partial remission F33.41 [address] [address] [address] [place] [address] Jul, [place] [address] [place] [id number] [place] [address] Jul, Major depressive disorder, r ecurrent, moderate F33.1 [place] [address] [address] [id number] [place] [address] Jul, Major depressive disorder, r ecurrent, moderate F33.1 and Generalized anxiety disorder F41.[id number] [place] [address] [id number] Jul, Cough R05 [place] [address] [place] [id number] [place] [address] Jul, Morbid obesity E66.01 ; Lida r depression F32.9 and Recurrent major depressive disorder, in partial remission F33.41 [facility] [address] [id number], [place] [id number] Jul, [facility] [address] [id number], [place] [id number] Jul, [address] [id number], [place] [id number] Jul, Gastroenteritis K52.[address] [facility] [address] [id number], [place] [id number] Jun, Acute bacterial conjunctivitis of left e ye H10.32 [place] [address] [facility] [id number] [address] [place] [address] Jun, [place] [address] [facility] [id number] [address] [place] [address] Jun, Recurrent major depressive d isorder, in partial remission F33.41 [place] [address] [facility] [id number] [address] [place] [address] May, Major depression F32.9 and M orbid obesity E66.01 [place] [address] [facility] [id number] [address] [place] [address] May, [place] [id number] [place] [address] [id number] May, Thrush B37.0 [place] [address] [facility] [id number] [address] [place] [address] Apr, Major depressive disorder, r ecurrent, moderate F33.1 [place] [address] [facility] [id number] [address] [place] [address] Apr, Insomnia G47.00 ; Major depr ession F32.9 and Recurrent major depressive disorder, in partial remission F33.41 [place] [address] [facility] [id number] [address] [place] [address] Apr, [place] [address] [facility] [id number] [address] [place] [address] Apr, Major depression F32.9 and R ecurrent major depressive disorder, in partial remission F33.[id number] [place] [address] [id number] Mar, Benign essential hypertension I10 ; Morb id obesity E66.01 ; Impacted cerumen of both ears H61.23 ; Laceration of finger of right hand, initial encounter S61.219A and Encounter for immunization Z23 [place] [address] [facility] [id number] [address] [place] [address] 17 Mar, 2016 [place] [address] [facility] [id number] [address] [place] [address] Mar, [place] [address] [facility] [id number] [address] [place] [address] Mar, [facility] [address] [id number], [place] [id number] Feb, Nausea R11.0 ; Blood in the stool K92.1 and Benign essential hypertension I10 [facility] [address] [facility] [id number] [address] [place] [address] Feb, Major depression F32.9 and R ecurrent major depressive disorder, in partial remission F33.41 [facility] [address] [id number], [place] [id number] Feb, [facility] [address] [id number], [place] [id number] Feb, Recurrent major depressive disorder, in partial remission F33.41 [facility] [address] [id number], [place] [id number] Jan, [facility] [id number] [place] [address] [id number] Jan, Benign essential hypertension I10 ; Robert a R60.9 and Hyperlipidemia, unspecified hyperlipidemia type E78.5 [facility] [address] [id number], [place] [id number] Jan, Recurrent major depressive disorder, in partial remission F33.41 [facility] [address] [facility] [id number] [place] [id number] Jan, [facility] [address] [id number], [place] [id number] Jan, [facility] [address] [id number], [place] [id number] Jan, [facility] [address] [facility] [id number] [address] [place] [address] Jan, [facility] [address] [facility] [id number] [address] [place] [address] Dec, [facility] [address] [facility] [id number] [address] [place] [address] Nov, [facility] [address] [facility] [id number] [address] [place] [address] Nov, Major depression F32.9 [facility] [address] [facility] [id number] [address] [place] [address] Nov, [facility] [address] [facility] [id number] [address] [place] [address] Nov, [facility] [address] [facility] [id number] [address] [place] [address] Nov, Major depressive disorder, r ecurrent episode, mild F33.0 and Anxiety F41.[id number] [place] [address] [id number] Nov, [id number] [place] [address] [id number] October, Left elbow pain M25.522 and Other season al allergic rhinitis J30.[address] [id number] [place] [address] [id number] October, [facility] [address] [place] [address] [id number] [place] [address] October, Major depressive disorder, r ecurrent, moderate F33.1 [facility] [address] [place] [id number] [place] [address] October, Major depression F32.9 [facility] [address] [facility] [id number] [address] [place] [address] Sep, [place] or callus L84 and Onych omycosis B35.1 [facility] [address] [place] [id number] [place] [address] Sep, Major depressive disorder, r ecurrent, moderate F33.1 [facility] [address] [facility] [id number] [address] [place] [address] Sep, Major depression F32.9 [facility] [address] [place] [id number] [place] [address] Sep, Moderate episode of recurren t major depressive disorder F33.[id number] [place] [address] [id number] Sep, Muscle strain T14.8 [facility] [address] [facility] [id number] [address] [place] [address] Aug, Major depression F32.9 [facility] [address] [facility] [id number] [address] [place] [address] Aug, Major depression F32.9 [facility] [address] [facility] [id number] [address] [place] [address] Jul, Morbid obesity E66.01 and Ma cora depression F32.9 [place] [address] [place] [id number] [place] [address] Jul, Depression, major, recurrent , moderate F33.[address] [id number], [place] [id number] Jul, [facility] [address] [facility] [id number] [address] [place] [address] Jul, [facility] [address] [facility] [id number] [address] [place] [address] Jul, Major depression F32.9 and M orbid obesity E66.[address] [id number] [place] [address] [id number] Jul, Type II diabetes mellitus E11.9 ; Callus of foot L84 ; Benign essential hypertension I10 and Renal insufficiency N28.9 [facility] [address] [facility] [id number] [address] [place] [address] Jul, Depression, major, recurrent , moderate F33.1 [facility] [address] [facility] [id number] [address] [place] [address] Jul, Major depression F32.9 [place] [address] [facility] [id number] [address] [place] [id number] 04 Jul, 2015 [place] [address] [address] [place] [id number] Jun, Major depression F32.9 [place] [address] [address] [facility] [id number] [address] [place] [phone] Jun, Major depressive disorder, r ecurrent, moderate F33.1 [place] [address] [id number] Jun, [place] [address] [address] [place] [id number] [place] [id number] Jun, Major depressive disorder, r ecurrent, moderate F33.1 and Major depression F32.[address] [place] [id number] [place] [id number] Jun, Type II diabetes mellitus E11.9 [place] [id number] [place] [phone] Jun, Depression, major, recurrent , moderate F33.1 [place] [address] [address] [place] [id number] [place] [phone] May, Major depressive disorder, r ecurrent, moderate F33.1 [place] [address] [address] [place] [id number] [address] [place] [phone] May, [place] [id number] [place] [id number] May, Edema R60.9 [place] [address] [address] [facility] [id number] [address] [place] [phone] May, Insomnia G47.00 and Major de pression F32.[address] [facility] [address] [id number] [id number] May, Morbid obesity E66.01 ; Edema R60.9 ; Sh ortness of breath R06.02 ; Benign essential hypertension I10 and Renal insufficiency N28.[address] [facility] [id number] [place] [id number] May, Hyperlipemia 272.4 and Renal insufficien cy N28.9 [place] [address] [address] [facility] [id number] [address] [place] [phone] Apr, Major depression F32.9 [place] [address] [address] [facility] [id number] [address] [place] [address] Apr, [place] [address] [address] [facility] [id number] [address] [place] [address] Apr, Major depressive disorder, r ecurrent, moderate F33.1 [facility] [address] [place] [address] A[id number] [place] [address] [id number] Apr, Type II diabetes mellitus E11.9 ; Benign essential hypertension I10 ; Edema R60.9 and Renal insufficiency N28.9 [place] [address] [address] [facility] [id number] [address] [place] [address] Mar, Major depressive disorder, r ecurrent, moderate F33.1 [place] [address] [address] [facility] [id number] [address] [place] [address] Mar, [place] [address] [address] [facility] [id number] [address] [place] [address] Mar, Major depression F32.[address] [id number] [place] [address] [id number] Mar, Morbid obesity E66.01 ; Benign essential hypertension I10 and Type II diabetes mellitus E11.9 [place] [address] [address] [facility] [id number] [address] [place] [address] Feb, Major depressive disorder, r ecurrent, moderate F33.1 [place] [address] [address] [facility] [id number] [address] [place] [address] Feb, Major depressive disorder, r ecurrent episode, in partial or unspecified remission 296.35 ; Anxiety state, unspecified 300.00 and Morbid obesity 278.01 [place] [address] [address] [facility] [id number] [address] [place] [address] Feb, [address] [id number] [id number] Feb, Vomiting 787.03 and Viral syndrome 079.9 9 [place] [address] [address] [place] [id number] [address] [place] [address] Feb, Major depression, recurrent 296.30 ; Generalized anxiety disorder 300.02 and No condition on [place] II V71.[id number] [place] [address] [id number] Feb, Skin tag 701.9 [place] [address] [address] [place] [id number] [address] [place] [address] Feb, [place] [address] [address] [place] [id number] [address] [place] [address] Jan, Depression, major, recurrent , moderate 296.[address] [id number] [id number] Jan, Nausea and vomiting 787.01 ; Rib pain on right side 786.50 and Fall on or from sidewalk curb E880.1 [place] [address] [address] [place] [id number] [address] [place] [address] Jan, [place] [address] [address] [place] [id number] [address] [place] [address] Jan, Major depressive disorder, r ecurrent episode, in partial or unspecified remission 296.35 and Anxiety state, unspecified 300.[address] [id number][place] [id number] Jan, [place] [address] [address] [place] [id number] [address] [place] [address] Jan, Depression, major, recurrent , moderate 296.32 [place] [address] [address] [place] [id number] [address] [place] [address] Jan, Major depression, recurrent 296.30 ; No condition on [place] II V71.09 and No condition on axis III V71.09 [facility] [address] [id number][place] [id number] Jan, Drug-induced nausea and vomiting 787.01 [place] [address] [address] [place] [id number] [address] [place] [address] Jan, Depression, major, recurrent , moderate 296.32 [place] [address] [address] [place] [id number] [address] [place] [address] Dec, Depression, major, recurrent , moderate 296.32 [facility] [address] [facility] [address] [id number] [id number] Dec, Morbid obesity 278.01 ; Metabolic syndro me 277.7 ; Hyperlipemia 272.4 ; Benign essential hypertension 401.1 ; Dietary counseling V65.3 ; Exercise counseling V65.41 and Inflamed skin tag 701.9 [place] [address] [address] [place] [id number] [address] [place] [address] Dec, Depression, major, recurrent , moderate 296.32 [place] [address] [address] Dec, [place] [id number] [address] [place] [address] Dec, Major depression, recurrent 296.30 ; Anxiety, generalized 300.02 and No condition on [place] II V71.09 [place] [address] [address] [place] [id number] [address] [place] [address] Dec, Depression, major, recurrent , moderate 296.32 [place] [address] [address] Dec, Major depressive disorder, r ecurrent episode, moderate 296.32 [place] [address] [address] [place] [id number] [address] [place] [address] Dec, Depression, major, recurrent , moderate 296.32 [place] [address] [address] Dec, Depression, major, recurrent , moderate 296.32 [facility] [address] [place] [id number] Dec, Depression, major, recurrent , moderate 296.32 [facility] [address] [address] Dec, Depression, major, recurrent , moderate 296.32 [facility] [address] [address] Nov, Depression, major, recurrent , moderate 296.32 [place] [address] [address] Nov, Major depression 296.20 ; So cial phobia 300.23 and No condition on [place] II V71.09 [place] [address] [address] Nov, Depression, major, recurrent , moderate 296.32 [place] [address] [address] Nov, Major depressive disorder, r ecurrent episode, moderate 296.32 and Generalized anxiety disorder 300.02 [place] [address] [address] Nov, Depression, major, recurrent , moderate 296.32 [place] [address] [address] Nov, Depression, major, recurrent , moderate 296.32 [place] [address] [address] October, Generalized anxiety disorder 300.02 ; No condition on [place] II V71.09 and Major depressive disorder, recurrent 296.30 [place] [address] [address] 14 Sep, 2014 [facility] [address] [address] 13 Sep, 2014 [facility] [address] [id number] [address] [place] [address], [place] [address] 24 Aug, 2014 [facility] [address] [id number] [address] [place] [address], [place] [address] 24 Aug, 2014 [facility] [address] [id number] [address] [place] [address], [place] [address] 23 Aug, 2014 [facility] [place] [address] [id number] [address] [place] [address], [place] [address] 23 Aug, 2014 [facility] [address] [id number] [address] [place] [address], [place] [address] 20 Aug, 2014 [facility] [address] [id number] [address] [place] [address], [place] [address] 20 Aug, 2014 [facility] [address] [id number] [address] [place] [address], [place] [address] 20 Aug, 2014 [facility] [address] [id number] [address] [place] [address], [place] [address] 20 Aug, 2014 [facility] [address] [id number] [address] [place] [address], [place] [address] 13 Aug, 2014 [facility] [place] [address] [id number] [address] [place] [address], [place] [address] 13 Aug, 2014 [facility] [place] [address] [id number] [address] [place] [address], [place] [address] 13 Aug, 2014 [facility] [address] [id number] [address] [place] [address], [place] [address] 13 Aug, 2014 [facility] [place] [address] [id number] [address] [place] [address], [place] [address] 12 Aug, 2014 [facility] [place] [address] [id number] [address] [place] [address], [place] [address] 12 Aug, 2014 [facility] [address] [id number] [address] [place] [address], [place] [address] 10 Aug, 2014 [facility] [place] [address] [id number] [address] [place] [address], [place] [address] Aug, [facility] [address] [id number] [address] [place] [address], [place] [address] Aug, [facility] [address] [id number] [address] [place] [address], [place] [address] Aug, [facility] [address] [id number] [address] [place] [address], [place] [address] Jul, [facility] [place] [address] [id number] [address] [place] [address], [place] [address] Jul, [facility] [address] [id number] [address] [place] [address], [place] [address] Jul, [facility] [address] [id number] [address] [place] [address], [place] [address] Jul, [facility] [place] [address] [id number] [address] [place] [address], [place] [address] Jul, [facility] [address] [id number] [address] [place] [address], [place] [address] Jul, [facility] [address] [id number] [address] [place] [address], [place] [address] Jun, [facility] [address] [id number] [address] [place] [address], [place] [address] Jun, [facility] [address] [id number] [address] [place] [address], [place] [address] Jun, [facility] [address] [id number] [address] [place] [address], [place] [address] Jun, [facility] [address] [id number] [address] [place] [address], [place] [address] Jun, [facility] [address] [id number] [address] [place] [address], [place] [address] Jun, [facility] [address] [id number] [address] [place] [address], [place] [address] Jun, [facility] [address] [id number] [address] [place] [address], [place] [address] Jun, [facility] [address] [id number] [address] [place] [address], [place] [address] Jun, [facility] [address] [id number] [address] [place] [address], [place] [address] Jun, [facility] [address] [id number] [address] [place] [address], [place] [address] Jun, [facility] [address] [id number] [address] [place] [address], [place] [address] Jun, [facility] [place] [facility] [address] [id number] [place] [id number] Jun, [facility] [address] [id number] [address] [place] [address], [place] [address] Jun, [facility] [address] [id number] [address] [place] [address] Jun, [facility] [address] [id number] [address] [place] [address], [place] [address] Jun, [facility] [address] [id number] [address] [place] [address] May, [facility] [address] [id number] [address] [place] [address], [place] [address] May, [facility] [address] [id number] [address] [place] [address] May, [facility] [address] [id number] [address] [place] [address], [place] [address] May, [facility] [address] [id number] [address] [place] [address], [place] [address] Apr, [facility] [address] [id number] [address] [place] [address], [place] [address] Apr, [facility] [address] [id number] [address] [place] [address] [place] [address] Apr, [facility] [address] [id number] [address] [place] [address], [place] [address] Apr, [facility] [address] [id number] [address] [place] [address], [place] [address] Apr, [facility] [address] [id number] [address] [place] [address], [place] [address] Apr, [facility] [address] [id number] [address] [place] [address], [place] [address] Apr, [facility] [address] [id number] [address] [place] [address], [place] [address] Apr, [facility] [address] [id number] [address] [place] [address], [place] [address] Apr, [facility] [address] [id number] [address] [place] [address], [place] [address] Apr, [facility] [address] [id number] [address] [place] [address], [place] [address] Apr, [facility] [address] [id number] [address] [place] [address], [place] [address] Apr, [facility] [address] [id number] [address] [place] [address], [place] [address] Apr, [facility] [address] [id number] [address] [place] [address], [place] [address] Apr, [facility] [address] [id number] [address] [place] [address] Apr, [facility] [place] [address] [id number] [address] [place] [address], [place] [address] Apr, [facility] [address] [id number] [address] [place] [address], [place] [address] Apr, [facility] [address] [id number] [address] [place] [address], [place] [address] Apr, [facility] [address] [id number] [address] [place] [address], [place] [address] Apr, [facility] [address] [id number] [address] [place] [address], [place] [address] Apr, [facility] [address] [id number] [address] [place] [address], [place] [address] Mar, [facility] [address] [id number] [address] [place] [address], [place] [address] Mar, [facility] [facility] [address] [id number] [address] [place] [address], [place] [address] Mar, [facility] [address] [id number] [address] [place] [address], [place] [address] Mar, [facility] [address] [id number] [address] [place] [address], [place] [address] Mar, [facility] [place] [facility] [address] [id number] [address] [place] [address], [place] [address] Mar, [facility] [place] [facility] [address] [id number] [address] [place] [address], [place] [address] Mar, [facility] [place] [facility] [address] [id number] [address] [place] [address], [place] [address] Mar, [facility] [place] [facility] [address] [id number] [address] [place] [address], [place] [address] Mar, [facility] [address] [id number] [address] [place] [address], [place] [address] Mar, [facility] [address] [id number] [address] [place] [address], [place] [address] Feb, [facility] [address] [id number] [address] [place] [address], [place] [address] Feb, [facility] [address] [id number] [address] [place] [address], [place] [address] Feb, [facility] [place] [facility] [address] [id number] [address] [place] [address], [place] [address] Feb, [facility] [address] [id number] [facility] [place] [address] Jan, [facility] [address] [id number] [address] [place] [address], [place] [address] Jan, [facility] [address] [id number] [address] [place] [address], [place] [address] Jan, [facility] [address] [id number] [address] [place] [address], [place] [address] Jan, [facility] [facility] [address] [id number] [address] [place] [address], [place] [address] Jan, [facility] [address] [id number] [address] [place] [address], [place] [address] Jan, [facility] [address] [id number] [address] [place] [address], [place] [address] Dec, [facility] [address] [id number] [address] [place] [address], [place] [address] Dec, [facility] [address] [id number] [address] [place] [address], [place] [address] Nov, [facility] [address] [id number] [address] [place] [address], [place] [address] Nov, [facility] [place] [facility] [address] [id number] [address] [place] [address], [place] [address] Nov, [facility] [address] [id number] [address] [place] [address], [place] [address] Nov, [facility] [address] [id number] [address] [place] [address], [place] [address] Nov, [facility] [place] [facility] [address] [id number] [address] [place] [address], [place] [address] Nov, [facility] [place] [facility] [address] [id number] [address] [place] [address], [place] [address] Sep, [facility] [place] [facility] [address] [id number] [address] [place] [address] Sep, [facility] [address] [id number] [address] [place] [address], [place] [address] Sep, [facility] [address] [id number] [address] [place] [address], [place] [address] Sep, [facility] [address] [id number] [address] [place] [address], [place] [address] Aug, [facility] [address] [id number] [address] [place] [address], [place] [address] Aug, [facility] [address] [id number] [address] [place] [address], [place] [address] Jul, [facility] [address] [id number] [address] [place] [address], [place] [address] Jul, [facility] [address] [id number] [address] [place] [address], [place] [address] Jun, [facility] [address] [id number] [address] [place] [address], [place] [address] Jun, [facility] [address] [id number] [address] [place] [address], [place] [address] Jun, [facility] [address] [id number] [address] [place] [address], [place] [address] Jun, [facility] [address] [id number] [address] [place] [address], [place] [address] May, [facility] [address] [id number] [address] [place] [address], [place] [address] May, [facility] [address] [id number] [address] [place] [address], [place] [address] May, [facility] [address] [id number] [address] [place] [address], [place] [address] May, [facility] [address] [id number] [address] [place] [address], [place] [address] May, [facility] [address] [id number] [address] [place] [address], [place] [address] May, [facility] [address] [id number] [address] [place] [address], [place] [address] Apr, [facility] [address] [id number] [address] [place] [address], [place] [address] Apr, [facility] [place] [address] [id number] [address] [place] [address], [place] [address] Apr, [facility] [address] [id number] [address] [place] [address], [place] [address] Apr, [facility] [address] [id number] [address] [place] [address], [place] [address] Mar, [facility] [address] [id number] [address] [place] [address], [place] [address] Mar, [facility] [address] [id number] [address] [place] [address], [place] [address] Mar, [facility] [address] [id number] [address] [place] [address], [place] [address] Mar, [facility] [address] [id number] [address] [place] [address], [place] [address] Feb, [facility] [address] [id number] [place] [id number] Jan, [facility] [address] [id number] [address] [place] [address] Jan, [facility] [address] [id number] [address] [place] [address], [place] [address] Dec, [facility] [address] [id number] [address] [place] [address], [place] [id number] Dec, [facility] [address] [id number] [address] [place] [address], [place] [phone] Dec, [facility] [address] [id number] [place] [id number] Dec, [facility] [address] [id number] [address] [place] [id number] 17 Nov, 2012 [facility] [address] [id number] [address] [place] [id number] Nov, [facility] [address] [id number] [address] [place] [phone] Nov, [facility] [address] [id number] [address] [place] [id number] Nov, [facility] [address] [id number] [address] [place] [phone] Nov, [facility] [address] [id number] [address] [place] [id number] October, [facility] [address] [id number] [address] [place] [phone] October, [facility] [address] [id number] [address] [place] [phone] Aug, [facility] [address] [id number] [address] [place] [phone] Nov, IMMUNIZATIONS No Known Immunizations SOCIAL HISTORY Never Assessed REASON FOR VISIT f/uTashi Mariscal, Anxiety / mood/ PLAN OF CARE Activity Details Follow Up 3 Months Reason: VITAL SIGNS Height 71.5 in 2018-05-24 Weight 354.4 lbs 2018-05-24 Heart Rate 76 bpm 2018-05-24 Respiratory Rate 20 2018-05-24 BMI 48.73 kg/m2 2018-05-24 Blood pressure systolic 146 mmHg 2018-05-24 Blood pressure diastolic 98 mmHg 2018-05-24 MEDICATIONS Medication Instructions Dosage Frequency Start Date End Date Duration S tatus Vitamin D-3 1000 UNIT Orally Once a day 3 capsule 24h Active Lisinopril 40 mg Orally Once a day 1 tablet Once a day Orally 24h 90 days Active Zofran 8 MG Orally Once a day 1 tablet 24h A ctive Ketoconazole 2 % Externally Once a day 1 application to affected area 24 h Active Flovent HFA 110 mcg/act inhalation once per day 1-3 Puffs 1 time pe r day 14 Oct, 2012 0 Active Lamictal 200 MG Orally Once a day 1 tablet 24h Jun, Active Triamcinolone Acetonide 0.1 % Externally Twice a day 1 appli cation to affected area 12h Mar, 7 days Active Baclofen 10 mg Orally Three times a day 1/2 tablet 8h Active Omeprazole 40 mg Orally Once a day 1 tablet 24h 45 d ays Active Atenolol 100 mg Orally Once a day 1 tablet Once a day Orally 24h 90 days Active Lasix 20 mg Orally Once a day as needed for swelling 1 tablet Active BusPIRone HCl 15 mg Orally three times a day for anxiety 1 tablet Active Trazodone HCl 100 mg Orally Once a day- bedtime 1 tablet 90 Active Centrum - Active Flonase 50 mcg/act nasally once per day 1 spray (50 mcg) in each nostril by intranasal route 2 times per day Nov, Active Cetirizine HCl 10 mg Orally Once a day 1 tablet 24h 90 Active Viibryd 40 mg Orally Once a day 1 tablet with food 24h May, Active Montelukast Sodium 10 MG TAKE 1 TABLET BY MOUTH ONCE DAILY 90 Active RESULTS No Results PROCEDURES No Known [...] Hospitalization History gastric sleeve Hospitalization History [facility] Trouble with left shoulder blade 08/2017
--- OUTSIDE RECORDS SUMMARY | 2019-11-29 09:22 | XMS REPORT ---
Author Author Silvia CASTROy NORMAN Organization [facility] Address [address] [place] [address] Care Team Providers Care Cover Seamer Name Role Phone NORMAN CASTRO Unavailable PROBLEMS Type Condition ICD9-CM Code CMN03-OS Code Onset Dates Condition S tatus SNOMED Code Problem Metabolic syndrome E88.81 Active 2 36607157 Problem Severe episode of recurrent major depressive disorder, without psychotic features F33.2 Active 99892148 Problem Anxiety F41.9 Active 48013808 Problem Depressive disorder, not elsewhere classified F32. 9 Active 34005516 Problem Sciatica, right side M54.31 Active [id number] Problem Mixed obsessional thoughts and acts F42.2 Active 04781620 Problem Vitamin D deficiency E55.9 Active 35896422 Problem DANIELA (generalized anxiety disorder) F41.1 Active 64676499 Problem BMI 45.0-49.9, adult Z68.42 Active 892732728 Problem Hyperlipemia E78.5 Active 5694992 4 Problem Major depression F32.9 Active 370 081733 Problem Insomnia G47.00 Active 627537690 Problem Renal insufficiency N28.9 Active 895276041 Problem Edema R60.9 Active 504659367 Problem Morbid obesity E66.01 Active 98654 6002 Problem Callus of foot L84 Active 18558 1005 Problem Benign essential hypertension I10 Active 4539961 Problem Recurrent major depressive disorder, in partial remission F33.41 Active [id number] ALLERGIES No Information ENCOUNTERS Encounter Location Date Diagnosis [facility] [address] [facility] [id number] [address] [place] [phone] Jun, [facility] [address] [facility] [id number] [place] [address] [id number] May, [facility] [address] [facility] [id number] [address] [place] [id number] May, [facility] [address] [facility] [id number] [address] [place] [phone] Apr, [facility] [address] [facility] [id number] [address] [place] [phone] Apr, [facility] [address] [facility] [id number] [address] [place] [phone] Apr, [facility] [address] [place] [id number] [address] [place] [phone] Mar, Mixed obsessional thoughts a nd acts F42.2 ; Recurrent major depressive disorder, in partial remission F33.41 ; DANIELA (generalized anxiety disorder) F41.1 and BMI 45.0-49.9, adult Z68.[address] [place] [address] [id number][place] [id number] Mar, [id number] [place] [address] [phone] Mar, BMI 45.0-49.9, adult Z68.42 ; Instabilit y of right knee joint M25.361 and Rash R21 [place] [address] [place] [id number] [address] [place] [phone] Jan, Recurrent major depressive d isorder, in partial remission F33.41 ; Mixed obsessional thoughts and acts F42.2 and BMI 45.0-49.9, adult Z68.[address] [place] [id number], [place] [id number] Jan, [place] [address] [id number] [place] [address] [phone] Jan, Benign essential hypertension I10 ; BMI 45.0-49.9, adult Z68.42 ; Metabolic syndrome E88.81 and Allergic rhinitis, unspecified seasonality, unspecified trigger J30.9 [facility] [address] [facility] [id number] [address] [place] [phone] Dec, DANIELA (generalized anxiety dis order) F41.1 and Depressive disorder, not elsewhere classified F32.9 [facility] [address] [id number], [place] [id number] Dec, Recurrent major depressive disorder, in partial remission F33.[address] [id number], [place] [id number] Dec, [facility] [address] [id number], [place] [id number] Nov, [address] [id number], [place] [id number] Nov, Recurrent major depressive disorder, in partial remission F33.41 [facility] [address] [facility] [id number] [address] [place] [phone] Nov, Recurrent major depressive d isorder, in partial remission F33.41 ; Mixed obsessional thoughts and acts F42.2 ; DANIELA (generalized anxiety disorder) F41.1 and BMI 45.0-49.9, adult Z68.42 [facility] [address] [id number], [place] [id number] Nov, [facility] [address] [id number], [place] [id number] Nov, Other conjunctivitis of both eyes H10.89 and Sciatica, right side M54.31 [facility] [address] [id number], [place] [id number] Nov, [facility] [address] [id number], [place] [id number] Nov, [facility] [address] [id number], [place] [id number] October, [facility] [address] [id number], [place] [id number] October, [facility] [address] [facility] [id number] [address] [place] [phone] October, BMI 45.0-49.9, adult Z68.42 ; Mixed obsessional thoughts and acts F42.2 ; Recurrent major depressive disorder, in partial remission F33.41 and DANIELA (generalized anxiety disorder) F41.[address] [id number], [place] [id number] October, Benign essential hypertension I10 ; Morb id obesity E66.01 and BMI 45.0-49.9, adult Z68.[address] [id number], [place] [id number] Sep, [facility] [address] [id number], [place] [id number] Sep, [address] [id number], [place] [id number] Sep, [facility] [address] [id number], [place] [id number] Sep, Hospital discharge follow-up Z09 ; Aller gic rhinitis, unspecified seasonality, unspecified trigger J30.9 and Shortness of breath R06.[address] [id number], [place] [id number] Sep, Recurrent major depressive disorder, in partial remission F33.[address] [id number], [place] [id number] Aug, Irritable mood R45.4 [place] [address] [place] [id number] [address] [place] [phone] Aug, [address] [id number] [place] [address] [id number] Jul, Benign essential hypertension I10 ; Robert a R60.9 and Impacted cerumen of left ear H61.22 [place] [address] [place] [id number] [address] [place] [phone] Jul, Major depression F32.9 ; Rec urrent major depressive disorder, in partial remission F33.41 and Anxiety F41.9 [place] [address] [place] [id number] [address] [place] [phone] Jun, Major depression F32.9 ; Rec urrent major depressive disorder, in partial remission F33.[address] [facility] [address] [id number], [place] [id number] Jun, Major depression F32.9 ; Morbid obesity E66.01 ; Irritable mood R45.4 ; Hand weakness R29.898 and Vitamin D deficiency E55.9 [facility] [address] [id number], [place] [id number] Jun, [facility] [address] [id number], [place] [id number] May, Major depression F32.9 [place] [address] [facility] [id number] [address] [place] [phone] May, Major depression F32.[address] [place] [address] [id number], [place] [id number] May, BMI 50.0-59.9, adult Z68.43 ; Major depr ession F32.9 ; Anxiety F41.9 ; Hypertrophic toenail L60.2 and Pain of left great toe M79.[address] [place] [id number] [place] [address] [id number] May, Recurrent major depressive disorder, in partial remission F33.41 [place] [address] [place] [id number] [address] [place] [phone] Apr, [facility] [id number] [place] [address] [id number] Apr, [facility] [address] [facility] [id number] [address] [place] [phone] Apr, Major depression F32.9 [facility] [id number] [place] [address] [id number] Apr, Severe episode of recurrent major depres sive disorder, without psychotic features F33.2 ; Anxiety F41.[address] [facility] [id number] [place] [address] [id number] Apr, [facility] [address] [facility] [id number] [address] [place] [phone] Apr, [facility] [address] [address] [id number], [place] [id number] Apr, [facility] [address] [id number], [place] [id number] Mar, [facility] [address] [id number], [place] [id number] Mar, Allergic conjunctivitis of both eyes H10 .13 [facility] [address] [facility] [id number] [address] [place] [phone] Mar, Major depression F32.9 [facility] [address] [id number], [place] [id number] Mar, Metabolic syndrome E88.81 ; History of g astric bypass Z98.890 ; Benign essential hypertension I10 and Allergic conjunctivitis of both eyes H10.13 [facility] [address] [facility] [id number] [address] [place] [phone] Mar, Major depression F32.9 [facility] [address] [id number], [place] [id number] Feb, [facility] [address] [facility] [id number] [address] [place] [address] Feb, Major depression F32.9 [facility] [address] [id number], [place] [id number] Feb, Subacute maxillary sinusitis J01.00 and Bronchitis J40 [facility] [address] [facility] [id number] [address] [place] [phone] 06 Feb, 2017 Major depressive disorder, r ecurrent, moderate F33.1 [facility] [address] [id number], [place] [id number] Jan, [facility] [address] [id number], [place] [id number] Jan, Acute non-recurrent maxillary sinusitis J01.00 [address] Skin tag [address]91.8 [facility] [place] [address] [place] [address] AVE [id number], [place] [id number] Jan, Cough R05 and Sinus congestion R09.81 [facility] [place] [address] [place] [address] AVE [id number], [place] [id number] Jan, [facility] [id number], [place] [id number] Jan, Benign essential hypertension I10 ; Hist ory of gastric bypass Z98.890 and Nausea and vomiting in adult R11.2 [place] [address] [place] [id number] [address] [place] [phone] Jan, Major depressive disorder, r ecurrent, moderate F33.1 [place] [id number] [place] [phone] Dec, Insomnia G47.00 ; Recurrent major depressive disorder, in partial remission F33.41 and Morbid obesity E66.01 [facility] [address] [id number], [place] [id number] Dec, [facility] [address] [id number], [place] [id number] Dec, Chronic bacterial conjunctivitis of left eye H10.402 [facility] [address] [id number], [place] [id number] Nov, [facility] [address] [id number] [place] [address] [id number] Nov, Dental examination Z01.20 [facility] [address] [id number], [place] [id number] Nov, Benign essential hypertension I10 ; Hist ory of gastric bypass Z98.890 and Nausea and vomiting in adult R11.2 [place] [address] [place] [phone] Nov, Major depressive disorder, r ecurrent, moderate F33.1 ; Generalized anxiety disorder F41.1 and Insomnia due to other mental disorder F51.05 [place] [address] [facility] [id number] [address] [place] [phone] Nov, Recurrent major depressive d isorder, in partial remission F33.41 ; Insomnia G47.00 and Morbid obesity E66.01 [facility] [address] [id number] [place] [id number] October, Abscess of left arm L02.414 [place] [address] [facility] [id number] [address] [place] [phone] October, Morbid obesity E66.01 ; Lida r depression F32.9 and Recurrent major depressive disorder, in partial remission F33.[address] [place] [address] [id number], [place] [id number] Sep, Benign essential hypertension I10 ; Morb id obesity E66.01 ; S/P gastric bypass Z98.84 ; Abscess L02.91 and Chronic bacterial conjunctivitis of left eye H10.[address] [place] [id number] [place] [address] [id number] Sep, Dental examination Z01.20 [place] [address] [facility] [id number] [address] [place] [phone] Sep, Morbid obesity E66.01 ; Lida r depression F32.9 and Recurrent major depressive disorder, in partial remission F33.41 [place] [address] [facility] [id number] [address] [place] [phone] Jul, [place] [address] [facility] [id number] [address] [place] [phone] Jul, Major depressive disorder, r ecurrent, moderate F33.1 [place] [address] [facility] [id number] [address] [place] [phone] Jul, Major depressive disorder, r ecurrent, moderate F33.1 and Generalized anxiety disorder F41.[address] [place] [id number] [place] [address] [id number] Jul, Cough R05 [facility] [address] [facility] [id number] [address] [place] [phone] Jul, Morbid obesity E66.01 ; Lida r depression F32.9 and Recurrent major depressive disorder, in partial remission F33.41 [facility] [address] [id number], [place] [id number] Jul, [facility] [address] [id number], [place] [id number] Jul, [facility] [id number] [place] [address] [id number] Jul, Gastroenteritis K52.[address] [facility] [address] [facility] [id number] [place] [address] [id number] Jun, Acute bacterial conjunctivitis of left e ye H10.32 [facility] [address] [facility] [id number] [address] [place] [phone] Jun, [facility] [address] [facility] [id number] [address] [place] [phone] Jun, Recurrent major depressive d isorder, in partial remission F33.41 [facility] [address] [facility] [id number] [address] [place] [phone] May, Major depression F32.9 and M orbid obesity E66.01 [facility] [address] [facility] [id number] [address] [place] [phone] May, [facility] [address] [facility] [address] [id number], [place] [id number] May, Thrush B37.0 [facility] [address] [facility] [id number] [address] [place] [phone] Apr, Major depressive disorder, r ecurrent, moderate F33.1 [facility] [address] [facility] [id number] [address] [place] [address] Apr, Insomnia G47.00 ; Major depr ession F32.9 and Recurrent major depressive disorder, in partial remission F33.41 [facility] [address] [facility] [id number] [address] [place] [phone] Apr, [facility] [address] [facility] [id number] [address] [place] [phone] Apr, Major depression F32.9 and R ecurrent major depressive disorder, in partial remission F33.41 [facility] [address] [id number], [place] [id number] Mar, Benign essential hypertension I10 ; Morb id obesity E66.01 ; Impacted cerumen of both ears H61.23 ; Laceration of finger of right hand, initial encounter S61.219A and Encounter for immunization Z23 [facility] [address] [facility] [id number] [address] [place] [phone] 17 Mar, 2016 [facility] [address] [facility] [id number] [address] [place] [phone] Mar, [facility] [address] [facility] [id number] [address] [place] [phone] Mar, [facility] [address] [id number], [place] [id number] Feb, Nausea R11.0 ; Blood in the stool K92.1 and Benign essential hypertension I10 [facility] [address] [facility] [id number] [address] [place] [phone] Feb, Major depression F32.9 and R ecurrent major depressive disorder, in partial remission F33.41 [facility] [address] [id number], [place] [id number] Feb, [facility] [address] [id number], [place] [id number] Feb, Recurrent major depressive disorder, in partial remission F33.41 [facility] [address] [id number], [place] [id number] Jan, [facility] [place] [address] [id number], [place] [id number] Jan, Benign essential hypertension I10 ; Robert a R60.9 and Hyperlipidemia, unspecified hyperlipidemia type E78.5 [facility] [address] [id number], [place] [id number] Jan, Recurrent major depressive disorder, in partial remission F33.41 [facility] [address] [id number] [place] [id number] Jan, [facility] [address] [id number], [place] [id number] Jan, [facility] [address] [facility] [address] [id number], [place] [id number] Jan, [facility] [address] [facility] [id number] [address] [place] [phone] Jan, [facility] [address] [facility] [id number] [address] [place] [phone] Dec, [facility] [address] [facility] [id number] [address] [place] [phone] Nov, [facility] [address] [facility] [id number] [address] [place] [phone] Nov, Major depression F32.9 [facility] [address] [facility] [id number] [address] [place] [phone] Nov, [facility] [address] [facility] [id number] [address] [place] [phone] Nov, [facility] [address] [facility] [id number] [address] [place] [phone] Nov, Major depressive disorder, r ecurrent episode, mild F33.[address] [facility] [address] [id number], [place] [id number] Nov, [facility] [address] [id number], [place] [id number] October, Left elbow pain M25.522 and Other season al allergic rhinitis J30.2 [facility] [address] [facility] [address] [id number], [place] [id number] October, [facility] [address] [facility] [id number] [address] [place] [phone] October, Major depressive disorder, r ecurrent, moderate F33.1 [facility] [address] [facility] [id number] [address] [place] [phone] October, Major depression F32.9 [facility] [address] [facility] [id number] [address] [place] [phone] Sep, [place] or callus L84 and Onych omycosis B35.1 [facility] [address] [facility] [id number] [address] [place] [phone] Sep, Major depressive disorder, r ecurrent, moderate F33.1 [facility] [address] [facility] [id number] [address] [place] [phone] Sep, Major depression F32.9 [facility] [address] [facility] [id number] [address] [place] [phone] Sep, Moderate episode of recurren t major depressive disorder F33.[address] [id number], [place] [id number] Sep, Muscle strain T14.8 [facility] [address] [facility] [id number] [address] [place] [phone] Aug, Major depression F32.9 [facility] [address] [facility] [id number] [address] [place] [phone] Aug, Major depression F32.9 [facility] [address] [facility] [id number] [address] [place] [phone] Jul, Morbid obesity E66.01 and Ma cora depression F32.9 [facility] [address] [facility] [id number] [address] [place] [phone] Jul, Depression, major, recurrent , moderate F33.[address] [id number], [place] [id number] Jul, [facility] [address] [facility] [id number] [address] [place] [phone] Jul, [facility] [address] [facility] [id number] [address] [place] [phone] Jul, Major depression F32.9 and M orbid obesity E66.[address] [id number], [place] [id number] Jul, Type II diabetes mellitus E11.9 ; Callus of foot L84 ; Benign essential hypertension I10 and Renal insufficiency N28.9 [facility] [address] [facility] [id number] [address] [place] [phone] 09 Jul, 2015 Depression, major, recurrent , moderate F33.1 [place] [address] [facility] [id number] [address] [place] [phone] Jul, Major depression F32.9 [facility] [address] [facility] [id number] [address] [place] [phone] Jul, [facility] [address] [facility] [id number] [address] [place] [phone] Jun, Major depression F32.9 [facility] [address] [facility] [id number] [address] [place] [phone] Jun, Major depressive disorder, r ecurrent, moderate F33.1 [facility] [address] [facility] [id number] [address] [place] [phone] Jun, [facility] [address] [facility] [id number] [address] [place] [phone] Jun, Major depressive disorder, r ecurrent, moderate F33.1 and Major depression F32.[address] [id number] [id number] Jun, Type II diabetes mellitus E11.9 [place] [address] [address] [facility] [id number] [address] [place] [phone] Jun, Depression, major, recurrent , moderate F33.1 [place] [address] [address] [facility] [id number] [address] [place] [phone] May, Major depressive disorder, r ecurrent, moderate F33.1 [place] [address] [facility] [id number] [address] [place] [phone] May, [place] [id number] [place] [id number] May, Edema R60.9 [place] [address] [place] [id number] [place] [phone] May, Insomnia G47.00 and Major de pression F32.[id number] [place] [id number] May, Morbid obesity E66.01 ; Edema R60.9 ; Sh ortness of breath R06.02 ; Benign essential hypertension I10 and Renal insufficiency N28.[id number] [place] [id number] May, Hyperlipemia 272.4 and Renal insufficien cy N28.9 [place] [address] [address] [place] [id number] [address] [place] [phone] Apr, Major depression F32.9 [place] [place] [address] [address] [facility] [id number] [address] [place] [address] Apr, [place] [address] [address] [facility] [id number] [address] [place] [address] Apr, Major depressive disorder, r ecurrent, moderate F33.[address] [id number] [place] [address] [id number] Apr, Type II diabetes mellitus E11.9 ; Benign essential hypertension I10 ; Edema R60.9 and Renal insufficiency N28.9 [place] [address] [address] [facility] [id number] [address] [place] [address] Mar, Major depressive disorder, r ecurrent, moderate F33.1 [place] [address] [address] [facility] [id number] [address] [place] [address] Mar, [facility] [address] [facility] [id number] [address] [place] [address] Mar, Major depression F32.9 [facility] [id number] [place] [address] [id number] Mar, Morbid obesity E66.01 ; Benign essential hypertension I10 and Type II diabetes mellitus E11.9 [place] [address] [address] [place] [id number] [address] [place] [address] Feb, Major depressive disorder, r ecurrent, moderate F33.1 [place] [address] [address] [place] [id number] [address] [place] [phone] Feb, Major depressive disorder, r ecurrent episode, in partial or unspecified remission 296.35 ; Anxiety state, unspecified 300.00 and Morbid obesity 278.01 [place] [address] [address] [place] [id number] [address] [place] [address] Feb, [place] [id number] [place] [address] [id number] Feb, Vomiting 787.03 and Viral syndrome 079.9 9 [place] [address] [address] [place] [id number] [address] [place] [phone] Feb, Major depression, recurrent 296.30 ; Generalized anxiety disorder 300.02 and No condition on [place] II V71.09 [facility] [address] [id number] [id number] Feb, Skin tag 701.9 [place] [address] [address] [facility] [id number] [address] [place] [phone] Feb, [place] [address] [address] [place] [id number] [address] [place] [address] Jan, Depression, major, recurrent , moderate 296.[address] [id number] [id number] Jan, Nausea and vomiting 787.01 ; Rib pain on right side 786.50 and Fall on or from sidewalk curb E880.1 [place] [address] [address] [facility] [id number] [address] [place] [address] Jan, [facility] [address] [place] [id number] [address] [place] [address] Jan, Major depressive disorder, r ecurrent episode, in partial or unspecified remission 296.35 and Anxiety state, unspecified 300.[id number] [place] [address] [id number] Jan, [place] [address] [address] [facility] [id number] [address] [place] [phone] Jan, Depression, major, recurrent , moderate 296.32 [place] [address] [address] [place] [id number] [address] [place] [phone] Jan, Major depression, recurrent 296.30 ; No condition on [place] II V71.09 and No condition on axis III V71.[address] [id number][place] [id number] Jan, Drug-induced nausea and vomiting 787.[address] [id number] [address] [place] [address] Jan, Depression, major, recurrent , moderate 296.[address] [id number] [address] [place] [address] Dec, Depression, major, recurrent , moderate 296.[id number] [place] [address] [id number] Dec, Morbid obesity 278.01 ; Metabolic syndro me 277.7 ; Hyperlipemia 272.4 ; Benign essential hypertension 401.1 ; Dietary counseling V65.3 ; Exercise counseling V65.41 and Inflamed skin tag 701.9 [place] [id number] [address] [place] [address] Dec, Depression, major, recurrent , moderate 296.32 [place] [address] [address] [place] [id number] Dec, [place] [address] [address] Dec, Major depression, recurrent 296.30 ; Anxiety, generalized 300.02 and No condition on [place] II V71.09 [place] [address] [address] Dec, Depression, major, recurrent , moderate 296.32 [place] [address] [address] Dec, Major depressive disorder, r ecurrent episode, moderate 296.[address] [address] Dec, Depression, major, recurrent , moderate 296.32 [place] [address] [address] Dec, Depression, major, recurrent , moderate 296.32 [place] [address] [address] Dec, Depression, major, recurrent , moderate 296.32 [place] [address] [address] Dec, Depression, major, recurrent , moderate 296.32 [place] [address] [address] Nov, Depression, major, recurrent , moderate 296.32 [place] [id number] Nov, Major depression 296.20 ; So cial phobia 300.23 and No condition on [place] II V71.[address] [id number] 16 Nov, 2014 Depression, major, recurrent , moderate 296.32 [facility] [address] [facility] [id number] [address] [place] [phone] 09 Nov, 2014 Major depressive disorder, r ecurrent episode, moderate 296.32 and Generalized anxiety disorder 300.02 [facility] [address] [facility] [id number] [address] [place] [address] Nov, Depression, major, recurrent , moderate 296.32 [facility] [address] [facility] [id number] [address] [place] [address] Nov, Depression, major, recurrent , moderate 296.32 [facility] [address] [facility] [id number] [address] [place] [address] October, Generalized anxiety disorder 300.02 ; No condition on [place] II V71.09 and Major depressive disorder, recurrent 296.30 [facility] [address] [facility] [id number] [address] [place] [id number] 14 Sep, 2014 [facility] [address] [facility] [id number] [address] [place] [phone] Sep, [facility] [address] [place] [id number] [address] [place] [phone] Aug, [facility] [address] [facility] [id number] [address] [place] [phone] Aug, [facility] [address] [facility] [id number] [address] [place] [phone] Aug, [facility] [address] [facility] [id number] [address] [place] [phone] Aug, [facility] [address] [facility] [id number] [address] [place] [phone] Aug, [facility] [address] [facility] [id number] [address] [place] [phone] Aug, [facility] [address] [facility] [id number] [address] [place] [address] Aug, [facility] [place] [facility] [address] [id number] [facility] [place] [address] 20 Aug, 2014 [facility] [place] [facility] [address] [id number] [address] [place] [address], [place] [address] 13 Aug, 2014 [facility] [place] [facility] [address] [id number] [facility] [place] [address] 13 Aug, 2014 [facility] [place] [facility] [address] [id number] [address] [place] [address], [place] [address] 13 Aug, 2014 [facility] [place] [facility] [address] [id number] [address] [place] [address], [place] [address] 13 Aug, 2014 [facility] [place] [facility] [address] [id number] [address] [place] [address], [place] [address] 12 Aug, 2014 [facility] [place] [facility] [address] [id number] [address] [place] [address], [place] [address] 12 Aug, 2014 [facility] [place] [facility] [address] [id number] [address] [place] [address], [place] [address] 10 Aug, 2014 [facility] [place] [facility] [address] [id number] [address] [place] [address], [place] [address] 10 Aug, 2014 [facility] [place] [facility] [address] [id number] [address] [place] [address], [place] [address] 09 Aug, 2014 [facility] [place] [facility] [address] [id number] [address] [place] [address], [place] [address] Aug, [facility] [place] [facility] [address] [id number] [address] [place] [address], [place] [address] 24 Jul, 2014 [facility] [place] [facility] [address] [id number] [address] [place] [address], [place] [address] 24 Jul, 2014 [facility] [place] [facility] [address] [id number] [address] [place] [address], [place] [address] 16 Jul, 2014 [facility] [place] [facility] [address] [id number] [address] [place] [address], [place] [address] 16 Jul, 2014 [facility] [place] [facility] [address] [id number] [address] [place] [phone] Jul, [facility] [address] [id number] [address] [place] [address], [place] [address] Jul, [facility] [address] [id number] [address] [place] [address], [place] [address] Jun, [facility] [address] [id number] [address] [place] [address], [place] [address] Jun, [facility] [address] [id number] [address] [place] [address], [place] [address] Jun, [facility] [address] [id number] [address] [place] [address], [place] [address] Jun, [facility] [address] [id number] [address] [place] [address], [place] [address] Jun, [facility] [address] [id number] [address] [place] [address], [place] [address] Jun, [facility] [address] [id number] [address] [place] [address], [place] [address] Jun, [facility] [address] [id number] [address] [place] [address], [place] [address] Jun, [facility] [address] [id number] [address] [place] [address], [place] [address] Jun, [facility] [address] [id number] [address] [place] [phone] Jun, [facility] [address] [id number] [address] [place] [phone] Jun, [facility] [address] [id number] [address] [place] [phone] Jun, [facility] [place] [address] [id number] [place] [id number] Jun, [facility] [address] [id number] [address] [place] [phone] Jun, [facility] [place] [facility] [address] [id number] [address] [place] [address], [place] [address] Jun, [facility] [address] [id number] [address] [place] [address], [place] [address] Jun, [facility] [address] [id number] [address] [place] [address], [place] [address] May, [facility] [address] [id number] [address] [place] [address], [place] [address] May, [facility] [address] [id number] [address] [place] [address], [place] [address] May, [facility] [address] [id number] [address] [place] [address], [place] [address] May, [facility] [address] [id number] [address] [place] [address], [place] [address] Apr, [facility] [address] [id number] [address] [place] [address], [place] [address] Apr, [facility] [address] [id number] [address] [place] [address], [place] [address] Apr, [facility] [address] [id number] [address] [place] [address], [place] [address] Apr, [facility] [address] [id number] [address] [place] [address], [place] [address] Apr, [facility] [address] [id number] [address] [place] [address], [place] [address] Apr, [facility] [address] [id number] [address] [place] [address], [place] [address] Apr, [facility] [address] [id number] [address] [place] [address], [place] [address] Apr, [facility] [address] [id number] [address] [place] [address], [place] [address] Apr, [facility] [address] [id number] [address] [place] [address], [place] [address] Apr, [facility] [place] [facility] [address] [id number] [address] [place] [address], [place] [address] Apr, [facility] [place] [facility] [address] [id number] [address] [place] [address], [place] [address] Apr, [facility] [place] [facility] [address] [id number] [address] [place] [address], [place] [address] Apr, [facility] [place] [facility] [address] [id number] [address] [place] [address], [place] [address] Apr, [facility] [place] [facility] [address] [id number] [address] [place] [address], [place] [address] Apr, [facility] [place] [facility] [address] [id number] [address] [place] [address], [place] [address] Apr, [facility] [place] [facility] [address] [id number] [address] [place] [address], [place] [address] Apr, [facility] [place] [facility] [address] [id number] [address] [place] [address], [place] [address] Apr, [facility] [place] [facility] [address] [id number] [address] [place] [address], [place] [address] Apr, [facility] [place] [facility] [address] [id number] [address] [place] [address], [place] [address] Apr, [facility] [place] [facility] [address] [id number] [address] [place] [address], [place] [address] Mar, [facility] [place] [facility] [address] [id number] [address] [place] [address], [place] [address] Mar, [facility] [place] [facility] [address] [id number] [address] [place] [address], [place] [address] Mar, [facility] [place] [facility] [address] [id number] [address] [place] [address], [place] [address] Mar, [facility] [place] [facility] [address] [id number] [address] [place] [address], [place] [address] Mar, [facility] [place] [facility] [address] [id number] [address] [place] [address] [place] [address] Mar, [facility] [place] [facility] [address] [id number] [address] [place] [address], [place] [address] Mar, [facility] [place] [facility] [address] [id number] [address] [place] [address], [place] [address] Mar, [facility] [place] [facility] [address] [id number] [address] [place] [address], [place] [address] Mar, [facility] [place] [facility] [address] [id number] [address] [place] [address], [place] [address] Mar, [facility] [place] [facility] [address] [id number] [address] [place] [address], [place] [address] Feb, [facility] [place] [facility] [address] [id number] [address] [place] [address], [place] [address] Feb, [facility] [place] [facility] [address] [id number] [address] [place] [address], [place] [address] Feb, [facility] [place] [facility] [address] [id number] [address] [place] [address], [place] [address] Feb, [facility] [place] [facility] [address] [id number] [address] [place] [address], [place] [address] Jan, [facility] [place] [facility] [address] [id number] [address] [place] [address], [place] [address] Jan, [facility] [place] [facility] [address] [id number] [address] [place] [address], [place] [address] Jan, [facility] [place] [facility] [address] [id number] [address] [place] [address], [place] [address] Jan, [facility] [place] [facility] [address] [id number] [address] [place] [address], [place] [address] Jan, [facility] [place] [facility] [address] [id number] [address] [place] [address], [place] [address] Jan, [facility] [place] [facility] [address] [id number] [address] [place] [address], [place] [address] Dec, [facility] [place] [facility] [address] [id number] [facility] [place] [address] Dec, [facility] [address] [id number] [facility] [place] [address] Nov, [facility] [place] [facility] [address] [id number] [facility] [place] [address] Nov, [facility] [place] [facility] [address] [id number] [address] [place] [address], [place] [address] Nov, [facility] [place] [facility] [address] [id number] [address] [place] [address], [place] [address] Nov, [facility] [place] [facility] [address] [id number] [address] [place] [address], [place] [address] Nov, [facility] [address] [id number] [address] [place] [address], [place] [address] Nov, [facility] [address] [id number] [address] [place] [address], [place] [address] Sep, [facility] [address] [id number] [address] [place] [address], [place] [address] Sep, [facility] [place] [facility] [address] [id number] [address] [place] [address], [place] [address] Sep, [facility] [address] [id number] [address] [place] [address], [place] [address] Sep, [facility] [place] [facility] [address] [id number] [address] [place] [address], [place] [address] Aug, [facility] [place] [facility] [address] [id number] [address] [place] [address], [place] [address] Aug, [facility] [place] [facility] [address] [id number] [address] [place] [address], [place] [address] Jul, [facility] [place] [facility] [address] [id number] [address] [place] [address], [place] [address] Jul, [facility] [place] [facility] [address] [id number] [address] [place] [address], [place] [address] Jun, [facility] [address] [id number] [address] [place] [address], [place] [address] Jun, [facility] [address] [id number] [address] [place] [address], [place] [address] Jun, [facility] [address] [id number] [address] [place] [address], [place] [address] Jun, [facility] [address] [id number] [address] [place] [address], [place] [address] May, [facility] [address] [id number] [address] [place] [address], [place] [address] May, [facility] [address] [id number] [address] [place] [address], [place] [address] May, [facility] [address] [id number] [address] [place] [address], [place] [address] May, [facility] [address] [id number] [address] [place] [address], [place] [address] May, [facility] [address] [id number] [address] [place] [address], [place] [address] May, [facility] [address] [id number] [address] [place] [address], [place] [address] Apr, [facility] [address] [id number] [address] [place] [address], [place] [address] Apr, [facility] [address] [id number] [address] [place] [address] Apr, [facility] [address] [id number] [address] [place] [address], [place] [address] Apr, [facility] [address] [id number] [address] [place] [address], [place] [address] Mar, [facility] [address] [id number] [address] [place] [address], [place] [address] Mar, [facility] [address] [id number] [address] [place] [address], [place] [address] Mar, [facility] [address] [id number] [address] [place] [address], [place] [address] Mar, [facility] [address] [id number] [address] [place] [address], [place] [id number] Feb, [facility] [address] [facility] [id number] [place] [id number] Jan, [facility] [address] [id number] [address] [place] [address], [place] [address] Jan, [facility] [address] [id number] [address] [place] [address], [place] [address] Dec, [facility] [address] [id number] [address] [place] [address], [place] [address] Dec, [facility] [address] [id number] [address] [place] [address], [place] [id number] Dec, [facility] [address] [facility] [id number] [place] [id number] Dec, [facility] [address] [id number] [address] [place] [address], [place] [id number] Nov, [facility] [address] [id number] [address] [place] [address], [place] [address] Nov, [facility] [address] [id number] [address] [place] [address], [place] [address] Nov, [facility] [address] [id number] [address] [place] [address], [place] [id number] Nov, [facility] [address] [id number] [address] [place] [address], [place] [address] Nov, [facility] [address] [id number] [address] [place] [address], [place] [address] October, [facility] [address] [id number] [address] [place] [address], [place] [phone] October, [facility] [address] [id number] [place] [address] Aug, [facility] [address] [facility] [id number] [address] [place] [id number] Nov, IMMUNIZATIONS No Known Immunizations SOCIAL HISTORY Never Assessed REASON FOR VISIT medication PLAN OF CARE VITAL SIGNS MEDICATIONS Medication Instructions Dosage Frequency Start Date End Date Duration S chandni Lamictal 150 MG Orally Once a day 1 tablet 24h Jun, Active RESULTS No Results PROCEDURES No Known [...] 03/2016 Hospitalization History gastric sleeve Hospitalization History [facility] Trouble with left shoulder blade 08/2017
--- OUTSIDE RECORDS SUMMARY | 2019-11-29 09:22 | XMS REPORT ---
Author Author Curt CASTRO Organization [facility] Address [address] [place] [address] Care Team Providers Care Supervisor [employer] Name Role Phone NORMAN CASTRO Unavailable PROBLEMS Type Condition ICD9-CM Code [id number] Code Onset Dates Condition S tatus SNOMED Code Problem Metabolic syndrome E88.81 Active 2 77927435 Problem Severe episode of recurrent major depressive disorder, without psychotic features F33.2 Active 79523842 Problem Anxiety F41.9 Active 35245732 Problem Depressive disorder, not elsewhere classified F32. 9 Active 26282724 Problem Sciatica, right side M54.31 Active [id number] Problem Mixed obsessional thoughts and acts F42.2 Active 67901814 Problem Vitamin D deficiency E55.9 Active 34928951 Problem DANIELA (generalized anxiety disorder) F41.1 Active 80789194 Problem BMI 45.0-49.9, adult Z68.42 Active 235160074 Problem Hyperlipemia E78.5 Active 3806637 4 Problem Major depression F32.9 Active 370 731811 Problem Insomnia G47.00 Active 607464747 Problem Renal insufficiency N28.9 Active 364369378 Problem Edema R60.9 Active 982672118 Problem Morbid obesity E66.01 Active 36804 6002 Problem Callus of foot L84 Active 87869 1005 Problem Benign essential hypertension I10 Active 2406978 Problem Recurrent major depressive disorder, in partial remission F33.41 Active 13963939 ALLERGIES No Information ENCOUNTERS Encounter Location Date Diagnosis [facility] [address] [facility] [id number] [address] [place] [id number] Jun, [facility] [address] [facility] [id number] [place] [address] [id number] May, [facility] [address] [facility] [id number] [address] [place] [address] May, [facility] [address] [facility] [id number] [address] [place] [phone] May, [facility] [address] [facility] [id number] [address] [place] [id number] Apr, [facility] [address] [facility] [id number] [address] [place] [phone] Apr, [facility] [address] [facility] [id number] [address] [place] [id number] Apr, [facility] [address] [facility] [id number] [address] [place] [address] Apr, [facility] [address] [facility] [id number] [address] [place] [address] Mar, Mixed obsessional thoughts a nd acts F42.2 ; Recurrent major depressive disorder, in partial remission F33.41 ; DANIELA (generalized anxiety disorder) F41.1 and BMI 45.0-49.9, adult Z68.[address] [place] [id number][place] [id number] Mar, [place] [id number] [place] [address] [id number] Mar, BMI 45.0-49.9, adult Z68.42 ; Instabilit y of right knee joint M25.361 and Rash R21 [facility] [address] [facility] [id number] [address] [place] [address] Jan, Recurrent major depressive d isorder, in partial remission F33.41 ; Mixed obsessional thoughts and acts F42.2 and BMI 45.0-49.9, adult Z68.42 [email or web address] [address] [id number], [place] [phone] Jan, [email or web address] [id number], [place] [phone] Jan, Benign essential hypertension I10 ; BMI 45.0-49.9, adult Z68.42 ; Metabolic syndrome E88.81 and Allergic rhinitis, unspecified seasonality, unspecified trigger J30.9 [facility] [address] [facility] [id number] [address] [place] [address] Dec, DANIELA (generalized anxiety dis order) F41.1 and Depressive disorder, not elsewhere classified F32.9 [facility] [address] [id number] [place] [id number] Dec, Recurrent major depressive disorder, in partial remission F33.41 [facility] [address] [id number] [place] [id number] Dec, [facility] [address] [id number] [place] [id number] Nov, [facility] [address] [id number], [place] [id number] Nov, Recurrent major depressive disorder, in partial remission F33.41 [facility] [address] [facility] [id number] [address] [place] [address] Nov, Recurrent major depressive d isorder, in partial remission F33.41 ; Mixed obsessional thoughts and acts F42.2 ; DANIELA (generalized anxiety disorder) F41.1 and BMI 45.0-49.9, adult Z68.42 [facility] [address] [id number], [place] [id number] Nov, [facility] [address] [id number], [place] [id number] Nov, Other conjunctivitis of both eyes H10.89 and Sciatica, right side M54.31 [facility] [address] [id number] [place] [id number] Nov, [facility] [address] [id number], [place] [id number] Nov, [facility] [address] [id number], [place] [id number] October, [facility] [address] [id number], [place] [id number] October, [facility] [address] [facility] [id number] [address] [place] [address] October, BMI 45.0-49.9, adult Z68.42 ; Mixed obsessional thoughts and acts F42.2 ; Recurrent major depressive disorder, in partial remission F33.41 and DANIELA (generalized anxiety disorder) F41.[address] [id number], [place] [id number] October, Benign essential hypertension I10 ; Morb id obesity E66.01 and BMI 45.0-49.9, adult Z68.[address] [id number], [place] [id number] Sep, [address] [id number] [place] [address] [id number] Sep, [id number] [place] [id number] Sep, [address] [id number] [place] [address] [id number] Sep, Hospital discharge follow-up Z09 ; Aller gic rhinitis, unspecified seasonality, unspecified trigger J30.9 and Shortness of breath R06.[id number] [place] [address] [id number] Sep, Recurrent major depressive disorder, in partial remission F33.[address] [id number] [place] [address] [id number] Aug, Irritable mood R45.4 [facility] [address] [facility] [id number] [address] [place] [address] Aug, [address] [id number] [place] [address] [id number] Jul, Benign essential hypertension I10 ; Robert a R60.9 and Impacted cerumen of left ear H61.22 [facility] [address] [facility] [id number] [address] [place] [id number] 14 Jul, 2017 Major depression F32.9 ; Rec urrent major depressive disorder, in partial remission F33.41 and Anxiety F41.9 [facility] [address] [facility] [id number] [address] [place] [address] Jun, Major depression F32.9 ; Rec urrent major depressive disorder, in partial remission F33.41 and Anxiety F41.9 [facility] [address] [id number], [place] [id number] Jun, Major depression F32.9 ; Morbid obesity E66.01 ; Irritable mood R45.4 ; Hand weakness R29.898 and Vitamin D deficiency E55.9 [facility] [address] [id number], [place] [id number] Jun, [facility] [address] [id number], [place] [id number] May, Major depression F32.9 [place] [address] [facility] [id number] [address] [place] [address] May, Major depression F32.9 [facility] [address] [id number], [place] [id number] May, BMI 50.0-59.9, adult Z68.43 ; Major depr ession F32.9 ; Anxiety F41.9 ; Hypertrophic toenail L60.2 and Pain of left great toe M79.675 [facility] [address] [id number], [place] [id number] May, Recurrent major depressive disorder, in partial remission F33.41 [place] [address] [facility] [id number] [address] [place] [phone] Apr, [facility] [address] [id number], [place] [id number] Apr, [facility] [address] [facility] [id number] [address] [place] [address] Apr, Major depression F32.9 [facility] [address] [id number], [place] [id number] Apr, Severe episode of recurrent major depres sive disorder, without psychotic features F33.2 ; Anxiety F41.9 and Insomnia G47.00 [facility] [address] [id number], [place] [id number] Apr, [facility] [address] [facility] [id number] [address] [place] [address] Apr, [facility] [address] [id number], [place] [id number] Apr, [facility] [address] [id number], [place] [id number] Mar, [facility] [address] [id number], [place] [id number] Mar, Allergic conjunctivitis of both eyes H10 .13 [facility] [address] [facility] [id number] [address] [place] [address] Mar, Major depression F32.9 [facility] [address] [id number], [place] [id number] Mar, Metabolic syndrome E88.81 ; History of g astric bypass Z98.890 ; Benign essential hypertension I10 and Allergic conjunctivitis of both eyes H10.13 [facility] [address] [facility] [id number] [address] [place] [address] Mar, Major depression F32.9 [facility] [address] [id number], [place] [id number] Feb, [facility] [address] [facility] [id number] [address] [place] [address] Feb, Major depression F32.9 [facility] [id number] [place] [address] [id number] Feb, Subacute maxillary sinusitis J01.00 and Bronchitis J40 [facility] [address] [facility] [id number] [address] [place] [phone] Feb, Major depressive disorder, r ecurrent, moderate F33.1 [facility] [place] [address] [facility] [address] [id number], [place] [id number] Jan, [facility] [address] [id number], [place] [id number] Jan, Acute non-recurrent maxillary sinusitis J01.00 and Skin tag L91.8 [facility] [address] [place] [address] [place] [id number], [place] [id number] Jan, Cough R05 and Sinus congestion R09.81 [facility] [address] [id number], [place] [id number] Jan, [facility] [address] [id number], [place] [id number] Jan, Benign essential hypertension I10 ; Hist ory of gastric bypass Z98.890 and Nausea and vomiting in adult R11.2 [facility] [address] [place], [place] [address] Jan, Major depressive disorder, r ecurrent, moderate F33.1 [facility] [address] [facility] [id number] [address] [place] [address] Dec, Insomnia G47.00 ; Recurrent major depressive disorder, in partial remission F33.41 and Morbid obesity E66.01 [facility] [address] [id number], [place] [id number] Dec, [facility] [address] [id number], [place] [id number] Dec, Chronic bacterial conjunctivitis of left eye H10.402 [facility] [address] [id number], [place] [id number] Nov, [facility] [address] [id number], [place] [id number] Nov, Dental examination Z01.20 [facility] [address] [id number], [place] [id number] Nov, Benign essential hypertension I10 ; Hist ory of gastric bypass Z98.890 and Nausea and vomiting in adult R11.2 [place] [address] [facility] [id number] [address] [place] [address] Nov, Major depressive disorder, r ecurrent, moderate F33.1 ; Generalized anxiety disorder F41.1 and Insomnia due to other mental disorder F51.05 [place] [address] [place] [id number] [place] [phone] Nov, Recurrent major depressive d isorder, in partial remission F33.41 ; Insomnia G47.00 and Morbid obesity E66.01 [facility] [id number] [place] [address] [id number] October, Abscess of left arm L02.414 [place] [id number] [place] [address] October, Morbid obesity E66.01 ; Lida r depression F32.9 and Recurrent major depressive disorder, in partial remission F33.41 [facility] [id number] [place] [address] [id number] Sep, Benign essential hypertension I10 ; Morb id obesity E66.01 ; S/P gastric bypass Z98.84 ; Abscess L02.91 and Chronic bacterial conjunctivitis of left eye H10.[id number] [place] [address] [id number] Sep, Dental examination Z01.[address] [id number] [address] [place] [address] Sep, Morbid obesity E66.01 ; Lida r depression F32.9 and Recurrent major depressive disorder, in partial remission F33.41 [place] [address] [facility] [id number] [address] [place] [address] Jul, [place] [address] [place] [id number] [address] [place] [address] Jul, Major depressive disorder, r ecurrent, moderate F33.1 [place] [id number] [place] [phone] Jul, Major depressive disorder, r ecurrent, moderate F33.1 and Generalized anxiety disorder F41.1 [facility] [id number] [place] [address] [id number] Jul, Cough R05 [place] [address] [facility] [id number] [address] [place] [address] Jul, Morbid obesity E66.01 ; Lida r depression F32.9 and Recurrent major depressive disorder, in partial remission F33.41 [facility] [id number] [place] [address] [id number] Jul, [facility] [address] [address] [id number] [place] [address] [id number] Jul, [facility] [address] [id number] [place] [address] [id number] Jul, Gastroenteritis K52.9 and Cough R05 [facility] [id number] [place] [address] [id number] Jun, Acute bacterial conjunctivitis of left e ye H10.32 [place] [address] [place] [address] Jun, [place] [address] [address] Jun, Recurrent major depressive d isorder, in partial remission F33.41 [place] [address] [place] [id number] [place] [address] May, Major depression F32.9 and M orbid obesity E66.01 [place] [address] [place] [id number] [place] [address] May, [facility] [id number] [place] [address] [id number] May, Thrush B37.0 [place] [address] [place] [address] Apr, Major depressive disorder, r ecurrent, moderate F33.1 [facility] [address] [facility] [id number] [address] [place] [address] Apr, Insomnia G47.00 ; Major depr ession F32.9 and Recurrent major depressive disorder, in partial remission F33.41 [facility] [address] [facility] [id number] [address] [place] [address] Apr, [facility] [address] [facility] [id number] [address] [place] [phone] Apr, Major depression F32.9 and R ecurrent major depressive disorder, in partial remission F33.41 [facility] [address] [id number], [place] [id number] Mar, Benign essential hypertension I10 ; Morb id obesity E66.01 ; Impacted cerumen of both ears H61.23 ; Laceration of finger of right hand, initial encounter S61.219A and Encounter for immunization Z23 [facility] [address] [facility] [id number] [address] [place] [id number] 17 Mar, 2016 [facility] [address] [facility] [id number] [address] [place] [address] Mar, [facility] [address] [facility] [id number] [address] [place] [address] Mar, [facility] [address] [id number], [place] [id number] Feb, Nausea R11.0 ; Blood in the stool K92.1 and Benign essential hypertension I10 [facility] [address] [facility] [id number] [address] [place] [phone] Feb, Major depression F32.9 and R ecurrent major depressive disorder, in partial remission F33.41 [facility] [address] [id number], [place] [id number] Feb, [facility] [address] [id number], [place] [id number] Feb, Recurrent major depressive disorder, in partial remission F33.41 [facility] [address] [id number], [place] [id number] Jan, [facility] [address] [id number], [place] [id number] Jan, Benign essential hypertension I10 ; Rboert a R60.9 and Hyperlipidemia, unspecified hyperlipidemia type E78.5 [facility] [address] [id number], [place] [id number] Jan, Recurrent major depressive disorder, in partial remission F33.41 [facility] [address] [id number] [place] [id number] Jan, [facility] [address] [id number], [place] [id number] Jan, [facility] [address] [id number], [place] [id number] Jan, [facility] [address] [facility] [id number] [address] [place] [phone] Jan, [facility] [address] [facility] [id number] [address] [place] [address] Dec, [facility] [address] [facility] [id number] [address] [place] [address] Nov, [facility] [address] [facility] [id number] [address] [place] [phone] Nov, Major depression F32.9 [facility] [address] [facility] [id number] [address] [place] [phone] Nov, [facility] [address] [facility] [id number] [address] [place] [phone] Nov, [facility] [address] [facility] [id number] [address] [place] [phone] Nov, Major depressive disorder, r ecurrent episode, mild F33.0 and Anxiety F41.9 [facility] [address] [id number], [place] [id number] Nov, [facility] [place] [id number] [facility] [address] [id number], [place] [id number] October, Left elbow pain M25.522 and Other season al allergic rhinitis J30.2 [facility] [address] [id number], [place] [id number] October, [place] [address] [facility] [id number] [address] [place] [phone] October, Major depressive disorder, r ecurrent, moderate F33.1 [place] [address] [facility] [id number] [address] [place] [address] October, Major depression F32.9 [place] [address] [facility] [id number] [address] [place] [address] Sep, Sprague or callus L84 and Onych omycosis B35.1 [place] [address] [facility] [id number] [address] [place] [address] Sep, Major depressive disorder, r ecurrent, moderate F33.1 [place] [address] [facility] [id number] [address] [place] [address] Sep, Major depression F32.9 [place] [address] [facility] [id number] [address] [place] [id number] Sep, Moderate episode of recurren t major depressive disorder F33.[address] [id number] [id number] Sep, Muscle strain T14.8 [facility] [address] [facility] [id number] [address] [place] [id number] Aug, Major depression F32.9 [place] [id number] [facility] [id number] [address] [place] [id number] Aug, Major depression F32.9 [facility] [address] [facility] [id number] [address] [place] [id number] Jul, Morbid obesity E66.01 and Ma cora depression F32.9 [facility] [address] [facility] [id number] [address] [place] [id number] Jul, Depression, major, recurrent , moderate F33.[address] [id number] [id number] Jul, [facility] [address] [facility] [id number] [address] [place] [id number] Jul, [facility] [address] [facility] [id number] [address] [place] [id number] 16 Jul, 2015 Major depression F32.9 and M orbid obesity E66.01 [facility] [address] [id number] [id number] 11 Jul, 2015 Type II diabetes mellitus E11.9 ; Callus of foot L84 ; Benign essential hypertension I10 and Renal insufficiency N28.9 [place] [id number] N [facility] [id number] [address] [place] [address] Jul, Depression, major, recurrent , moderate F33.1 [place] [address] [address] [facility] [id number] [address] [place] [address] Jul, Major depression F32.9 [place] [address]471 N [address] [place] [address] Jul, [place] [address] [address] [place] [address] Jun, Major depression F32.9 [place] [address] N [facility] [id number] [address] [place] [address] Jun, Major depressive disorder, r ecurrent, moderate F33.1 [facility] [address] [place] [id number] [address] [place] [address] Jun, [place] [address] [address] [place] [id number] [address] [place] [address] Jun, Major depressive disorder, r ecurrent, moderate F33.1 and Major depression F32.[address] [place] [id number] [place] [address] [id number] Jun, Type II diabetes mellitus E11.9 [facility] [address] [facility] [id number] [address] [place] [address] Jun, Depression, major, recurrent , moderate F33.1 [place] [address] [address] [facility] [id number] [address] [place] [address] May, Major depressive disorder, r ecurrent, moderate F33.1 [place] [address] [address] [place] [id number] [address] [place] [address] May, [address] [id number] [place] [address] [id number] May, Edema R60.9 [place] [id number] [address] [place] [address] May, Insomnia G47.00 and Major de pression F32.[address] [id number] [place] [address] [id number] 15 May, 2015 Morbid obesity E66.01 ; Edema R60.9 ; Sh ortness of breath R06.02 ; Benign essential hypertension I10 and Renal insufficiency N28.[address] [id number] [place] [address] [id number] May, Hyperlipemia 272.4 and Renal insufficien cy N28.9 [place] [address] [address] [facility] [id number] [address] [place] [address] Apr, Major depression F32.9 [place] [address] [address] [facility] [id number] [address] [place] [address] Apr, [place] [address] [address] [facility] [id number] [address] [place] [address] Apr, Major depressive disorder, r ecurrent, moderate F33.[address] [id number] [id number] Apr, Type II diabetes mellitus E11.9 ; Benign essential hypertension I10 ; Edema R60.9 and Renal insufficiency N28.9 [place] [address] [address] [place] [id number] [address] [place] [address] Mar, Major depressive disorder, r ecurrent, moderate F33.1 [place] [address] [address] [place] [id number] [address] [place] [address] Mar, [place] [address] [address] [facility] [id number] [address] [place] [address] Mar, Major depression F32.9 [address] [id number][place] [id number] Mar, Morbid obesity E66.01 ; Benign essential hypertension I10 and Type II diabetes mellitus E11.9 [place] [address] [address] [place] [id number] [address] [place] [address] Feb, Major depressive disorder, r ecurrent, moderate F33.1 [place] [address] [address] [place] [id number] [address] [place] [address] Feb, Major depressive disorder, r ecurrent episode, in partial or unspecified remission 296.35 ; Anxiety state, unspecified 300.00 and Morbid obesity 278.[address] [id number] [address] [place] [address] Feb, [address] [id number][place] [id number] Feb, Vomiting 787.03 and Viral syndrome 079.9 9 [place] [id number] [address] [place] [address] Feb, Major depression, recurrent 296.30 ; Generalized anxiety disorder 300.02 and No condition on [place] II V71.[address] [id number] [id number] Feb, Skin tag 701.[address] [id number] [address] [place] [address] Feb, [facility] [address] [facility] [id number] [address] [place] [address] Jan, Depression, major, recurrent , moderate 296.32 [facility] [address] [place] [address] AVE [id number][place] [id number] Jan, Nausea and vomiting 787.01 ; Rib pain on right side 786.50 and Fall on or from sidewalk curb E880.1 [facility] [address] [facility] [id number] [address] [place] [address] Jan, [facility] [address] [place] [id number] [address] [place] [address] Jan, Major depressive disorder, r ecurrent episode, in partial or unspecified remission 296.35 and Anxiety state, unspecified 300.[address] [id number][place] [id number] Jan, [facility] [address] [facility] [id number] [address] [place] [address] Jan, Depression, major, recurrent , moderate 296.32 [facility] [address] [place] [id number] [address] [place] [address] Jan, Major depression, recurrent 296.30 ; No condition on [place] II V71.09 and No condition on axis III V71.[address] [id number][place] [id number] Jan, Drug-induced nausea and vomiting 787.01 [facility] [address] [facility] [id number] [address] [place] [address] Jan, Depression, major, recurrent , moderate 296.32 [facility] [address] [facility] [id number] [address] [place] [address] Dec, Depression, major, recurrent , moderate 296.[id number] [place] [address] [id number] Dec, Morbid obesity 278.01 ; Metabolic syndro me 277.7 ; Hyperlipemia 272.4 ; Benign essential hypertension 401.1 ; Dietary counseling V65.3 ; Exercise counseling V65.41 and Inflamed skin tag 701.9 [place] [address] [address] Dec, Depression, major, recurrent , moderate 296.32 [place] [address] [address] Dec, [place] [address] [address] Dec, Major depression, recurrent 296.30 ; Anxiety, generalized 300.02 and No condition on [place] II V71.09 [place] [address] [address] Dec, Depression, major, recurrent , moderate 296.32 [place] [address] [address] Dec, Major depressive disorder, r ecurrent episode, moderate 296.[address] [address] Dec, Depression, major, recurrent , moderate 296.32 [place] [address] [address] Dec, Depression, major, recurrent , moderate 296.32 [place] [address] [address] Dec, Depression, major, recurrent , moderate 296.32 [place] [address] [address] Dec, Depression, major, recurrent , moderate 296.32 [place] [address] [address] Nov, Depression, major, recurrent , moderate 296.32 [place] [address] [address] 16 Nov, 2014 Major depression 296.20 ; So cial phobia 300.23 and No condition on [place] II V71.09 [facility] [address] [facility] [id number] [address] [place] [address] 16 Nov, 2014 Depression, major, recurrent , moderate 296.32 [facility] [address] [place] [id number] [address] [place] [address] Nov, Major depressive disorder, r ecurrent episode, moderate 296.32 and Generalized anxiety disorder 300.02 [facility] [address] [facility] [id number] [address] [place] [address] 09 Nov, 2014 Depression, major, recurrent , moderate 296.32 [facility] [address] [place] [id number] [address] [place] [address] Nov, Depression, major, recurrent , moderate 296.32 [facility] [address] [place] [id number] [address] [place] [address] October, Generalized anxiety disorder 300.02 ; No condition on [place] II V71.09 and Major depressive disorder, recurrent 296.30 [facility] [address] [place] [id number] [address] [place] [address] 14 Sep, 2014 [facility] [address] [place] [id number] [address] [place] [address] Sep, [facility] [address] [place] [id number] [address] [place] [address] Aug, [facility] [address] [place] [id number] [address] [place] [address] Aug, [facility] [address] [place] [id number] [address] [place] [address] Aug, [facility] [address] [place] [id number] [address] [place] [address] Aug, [facility] [address] [place] [id number] [address] [place] [address] Aug, [facility] [address] [id number] [facility] [place] [address] 20 Aug, 2014 [facility] [address] [id number] [facility] [place] [address] 20 Aug, 2014 [facility] [address] [id number] [facility] [place] [address] 20 Aug, 2014 [facility] [address] [id number] [address] [place] [address], [place] [address] 13 Aug, 2014 [facility] [address] [id number] [address] [place] [address], [place] [address] 13 Aug, 2014 [facility] [address] [id number] [address] [place] [address], [place] [address] 13 Aug, 2014 [facility] [address] [id number] [address] [place] [address], [place] [address] 13 Aug, 2014 [facility] [address] [id number] [address] [place] [address], [place] [address] Aug, [facility] [address] [id number] [address] [place] [address], [place] [address] Aug, [facility] [address] [id number] [address] [place] [address], [place] [address] 10 Aug, 2014 [facility] [address] [id number] [address] [place] [address], [place] [address] 10 Aug, 2014 [facility] [address] [id number] [address] [place] [address], [place] [address] Aug, [facility] [address] [id number] [address] [place] [address], [place] [address] Aug, [facility] [address] [id number] [address] [place] [address], [place] [address] Jul, [facility] [address] [id number] [address] [place] [address], [place] [address] Jul, [facility] [address] [id number] [address] [place] [address], [place] [address] Jul, [facility] [address] [id number] [address] [place] [address], [place] [address] Jul, [facility] [address] [id number] [address] [place] [address], [place] [address] Jul, [facility] [address] [id number] [address] [place] [address], [place] [address] Jul, [facility] [address] [id number] [address] [place] [address], [place] [address] Jun, [facility] [address] [id number] [address] [place] [address], [place] [address] Jun, [facility] [address] [id number] [address] [place] [address], [place] [address] Jun, [facility] [address] [id number] [address] [place] [address], [place] [address] Jun, [facility] [address] [id number] [address] [place] [address], [place] [address] Jun, [facility] [address] [id number] [address] [place] [address], [place] [address] Jun, [facility] [address] [id number] [address] [place] [address], [place] [address] Jun, [facility] [address] [id number] [address] [place] [address], [place] [address] Jun, [facility] [address] [id number] [address] [place] [address], [place] [address] Jun, [facility] [address] [id number] [address] [place] [address], [place] [address] Jun, [facility] [address] [id number] [address] [place] [address], [place] [address] Jun, [facility] [address] [id number] [address] [place] [address], [place] [address] Jun, [facility] [address] [id number] [place], Kiesha S [id number] Jun, [facility] [address] [id number] [address] [place] [address], [place] [address] Jun, [facility] [address] [id number] [address] [place] [address], [place] [address] Jun, [facility] [address] [id number] [address] [place] [address], [place] [address] Jun, [facility] [address] [id number] [address] [place] [address], [place] [address] May, [facility] [address] [id number] [address] [place] [address], [place] [address] May, [facility] [address] [id number] [address] [place] [address], [place] [address] May, [facility] [address] [id number] [address] [place] [address], [place] [address] May, [facility] [address] [id number] [address] [place] [address], [place] [address] Apr, [facility] [address] [id number] [address] [place] [address], [place] [address] Apr, [facility] [address] [id number] [address] [place] [address], [place] [address] Apr, [facility] [address] [id number] [address] [place] [address], [place] [address] Apr, [facility] [address] [id number] [address] [place] [address], [place] [address] Apr, [facility] [address] [id number] [address] [place] [address], [place] [address] Apr, [facility] [address] [id number] [address] [place] [address], [place] [address] Apr, [facility] [address] [id number] [address] [place] [address], [place] [address] Apr, [facility] [address] [id number] [address] [place] [address], [place] [address] Apr, [facility] [address] [id number] [address] [place] [address], [place] [address] Apr, [facility] [address] [id number] [address] [place] [address], [place] [address] Apr, [facility] [address] [id number] [address] [place] [address], [place] [address] Apr, [facility] [address] [id number] [address] [place] [address], [place] [address] Apr, [facility] [address] [id number] [address] [place] [address], [place] [address] Apr, [facility] [address] [id number] [address] [place] [address], [place] [address] Apr, [facility] [address] [id number] [address] [place] [address], [place] [address] Apr, [facility] [address] [id number] [address] [place] [address], [place] [address] Apr, [facility] [address] [id number] [address] [place] [address], [place] [address] Apr, [facility] [address] [id number] [address] [place] [address], [place] [address] Apr, [facility] [address] [id number] [address] [place] [address], [place] [address] Apr, [facility] [address] [id number] [address] [place] [address], [place] [address] Mar, [facility] [address] [id number] [address] [place] [address], [place] [address] Mar, [facility] [address] [id number] [address] [place] [address], [place] [address] Mar, [facility] [address] [id number] [address] [place] [address] [place] [address] Mar, [facility] [address] [id number] [address] [place] [address], [place] [address] Mar, [facility] [address] [id number] [address] [place] [address], [place] [address] Mar, [facility] [address] [id number] [address] [place] [address], [place] [address] Mar, [facility] [address] [id number] [address] [place] [address], [place] [address] Mar, [facility] [address] [id number] [address] [place] [address], [place] [address] Mar, [facility] [address] [id number] [address] [place] [address], [place] [address] Mar, [facility] [address] [id number] [address] [place] [address], [place] [address] Feb, [facility] [address] [id number] [address] [place] [address], [place] [address] Feb, [facility] [address] [id number] [address] [place] [address], [place] [address] Feb, [facility] [address] [id number] [address] [place] [address], [place] [address] Feb, [facility] [address] [id number] [address] [place] [address], [place] [address] Jan, [facility] [address] [id number] [address] [place] [address], [place] [address] Jan, [facility] [address] [id number] [address] [place] [address], [place] [address] Jan, [facility] [address] [id number] [address] [place] [address], [place] [address] Jan, [facility] [address] [id number] [address] [place] [address], [place] [address] Jan, [facility] [address] [id number] [facility] [place] [address] Jan, [facility] [address] [id number] [facility] [place] [address] Dec, [facility] [address] [id number] [facility] [place] [address] Dec, [facility] [address] [id number] [address] [place] [address], [place] [address] Nov, [facility] [address] [id number] [address] [place] [address], [place] [address] Nov, [facility] [address] [id number] [address] [place] [address], [place] [address] Nov, [facility] [address] [id number] [address] [place] [address], [place] [address] Nov, [facility] [address] [id number] [address] [place] [address], [place] [address] Nov, [facility] [address] [id number] [address] [place] [address], [place] [address] Nov, [facility] [address] [id number] [address] [place] [address], [place] [address] Sep, [facility] [address] [id number] [address] [place] [address], [place] [address] Sep, [facility] [address] [id number] [address] [place] [address], [place] [address] Sep, [facility] [address] [id number] [address] [place] [address], [place] [address] Sep, [facility] [address] [id number] [address] [place] [address], [place] [address] Aug, [facility] [address] [id number] [address] [place] [address], [place] [address] Aug, [facility] [address] [id number] [address] [place] [address], [place] [address] 14 Jul, 2013 [facility] [address] [id number] [address] [place] [address], [place] [address] 14 Jul, 2013 [facility] [address] [id number] [address] [place] [address], [place] [address] Jun, [facility] [address] [id number] [address] [place] [address], [place] [address] Jun, [facility] [address] [id number] [address] [place] [address], [place] [address] Jun, [facility] [address] [id number] [address] [place] [address], [place] [address] Jun, [facility] [address] [id number] [address] [place] [address], [place] [address] May, [facility] [address] [id number] [address] [place] [address], [place] [address] May, [facility] [address] [id number] [address] [place] [address], [place] [address] May, [facility] [address] [id number] [address] [place] [address], [place] [address] May, [facility] [address] [id number] [address] [place] [address], [place] [address] May, [facility] [address] [id number] [address] [place] [address], [place] [address] May, [facility] [address] [id number] [address] [place] [address], [place] [address] Apr, [facility] [address] [id number] [address] [place] [address], [place] [address] Apr, [facility] [address] [id number] [address] [place] [address], [place] [address] Apr, [facility] [address] [id number] [address] [place] [address], [place] [address] Apr, [facility] [address] [id number] [address] [place] [address], [place] [address] Mar, [facility] [address] [id number] [address] [place] [address], [place] [address] Mar, [facility] [address] [id number] [address] [place] [address], [place] [address] Mar, [facility] [address] [id number] [address] [place] [address], [place] [address] Mar, [facility] [address] [id number] [address] [place] [address], [place] [address] Feb, [facility] [address] [id number] [place] [id number] Jan, [facility] [address] [id number] [address] [place] [address], [place] [address] Jan, [facility] [address] [id number] [address] [place] [address], [place] [address] Dec, [facility] [address] [id number] [address] [place] [address], [place] [address] Dec, [facility] [address] [id number] [address] [place] [address], [place] [address] Dec, [facility] [address] [id number] [place] [id number] Dec, [facility] [address] [id number] [address] [place] [address], [place] [address] 17 Nov, 2012 [facility] [address] [id number] [address] [place] [address], [place] [address] 14 Nov, 2012 [facility] [address] [id number] [address] [place] [address], [place] [address] 12 Nov, 2012 [facility] [address] [id number] [address] [place] [address], [place] [address] Nov, [facility] [address] [id number] [address] [place] [address], [place] [address] Nov, [facility] [address] [id number] [address] [place] [address] October, [facility] [address] [facility] [id number] [address] [place] [address] October, [facility] [address] [facility] [id number] [address] [place] [address] Aug, [facility] [address] [facility] [id number] [address] [place] [address] Nov, IMMUNIZATIONS No Known Immunizations SOCIAL HISTORY Never Assessed REASON FOR VISIT Refill request PLAN OF CARE VITAL SIGNS MEDICATIONS Medication Instructions Dosage Frequency Start Date End Date Duration S chandni BusPIRone HCl 15 mg Orally three times a day for anxiety 1 tablet 30 days Active RESULTS No Results PROCEDURES No Known [...] Hospitalization History gastric sleeve Hospitalization History [facility] Trouble with left shoulder blade 08/2017
--- OUTSIDE RECORDS SUMMARY | 2019-11-29 09:23 | XMS REPORT ---
Author Author Curt CASTRO Organization [facility] Address [address] [place] [address] Care Team Providers Care Park Superintendent Name Role Phone JADEN CASTROA Unavailable PROBLEMS Type Condition ICD9-CM Code YIE12-IU Code Onset Dates Condition S tatus SNOMED Code Problem Metabolic syndrome E88.81 Active 2 55259236 Problem Severe episode of recurrent major depressive disorder, without psychotic features F33.2 Active 42020845 Problem Anxiety F41.9 Active 57455500 Problem Depressive disorder, not elsewhere classified F32. 9 Active 67571794 Problem Sciatica, right side M54.31 Active [id number] Problem Mixed obsessional thoughts and acts F42.2 Active 43395067 Problem Vitamin D deficiency E55.9 Active 53444841 Problem DANIELA (generalized anxiety disorder) F41.1 Active 72283405 Problem BMI 45.0-49.9, adult Z68.42 Active 580523925 Problem Hyperlipemia E78.5 Active 7738145 4 Problem Major depression F32.9 Active 370 919592 Problem Insomnia G47.00 Active 882516473 Problem Renal insufficiency N28.9 Active 246923312 Problem Edema R60.9 Active 789676939 Problem Morbid obesity E66.01 Active 77840 6002 Problem Callus of foot L84 Active 32699 1005 Problem Benign essential hypertension I10 Active 5247314 Problem Recurrent major depressive disorder, in partial remission F33.41 Active 79325712 ALLERGIES Substance Reaction Event Type Date Status [place] Elm throat swells Drug Allergy Mar, Active Peanut (Diagnostic) throat swells Drug Allergy Mar, Active Egg White (Diagnostic) throat swells Drug Allergy Mar, Acti ve alternaria tenuis throat swells Non Drug Allergy Mar, Activ e Cows Milk throat swells Non Drug Allergy Mar, Active Wheat throat swells Non Drug Allergy Mar, Active Ragweed throat swells Non Drug Allergy Mar, Active ENCOUNTERS Encounter Location Date Diagnosis [facility] [address] [facility] [id number] [address] [place] [phone] Jun, [place] [address] [place] [id number] [address] [place] [phone] Mar, Mixed obsessional thoughts a nd acts F42.2 ; Recurrent major depressive disorder, in partial remission F33.41 ; DANIELA (generalized anxiety disorder) F41.1 and BMI 45.0-49.9, adult Z68.42 [facility] [address] [id number][place] [id number] Mar, [facility] [id number] [place] [address] [id number] Mar, BMI 45.0-49.9, adult Z68.42 ; Instabilit y of right knee joint M25.361 and Rash R21 [place] [address] [facility] [id number] [address] [place] [phone] Jan, Recurrent major depressive d isorder, in partial remission F33.41 ; Mixed obsessional thoughts and acts F42.2 and BMI 45.0-49.9, adult Z68.42 [facility] [address] [id number], [place] [id number] Jan, [facility] [address] [id number], [place] [id number] Jan, Benign essential hypertension I10 ; BMI 45.0-49.9, adult Z68.42 ; Metabolic syndrome E88.81 and Allergic rhinitis, unspecified seasonality, unspecified trigger J30.9 [facility] [address] [facility] [id number] [address] [place] [phone] Dec, DANIELA (generalized anxiety dis order) F41.1 and Depressive disorder, not elsewhere classified F32.9 [facility] [address] [id number], [place] [id number] Dec, Recurrent major depressive disorder, in partial remission F33.41 [facility] [address] [id number], [place] [id number] Dec, [facility] [address] [id number], [place] [id number] Nov, [facility] [address] [id number], [place] [id number] Nov, Recurrent major depressive disorder, in partial remission F33.41 [place] [address] [facility] [id number] [address] [place] [phone] Nov, Recurrent major depressive d isorder, in partial remission F33.41 ; Mixed obsessional thoughts and acts F42.2 ; DANIELA (generalized anxiety disorder) F41.1 and BMI 45.0-49.9, adult Z68.42 [facility] [address] [id number], [place] [id number] Nov, [facility] [address] [address] [id number], [place] [id number] Nov, Other conjunctivitis of both eyes H10.89 and Sciatica, right side M54.31 [facility] [address] [id number], [place] [id number] Nov, [facility] [address] [id number], [place] [id number] Nov, [facility] [address] [id number], [place] [id number] October, [facility] [address] [id number], [place] [id number] October, [facility] [address] [facility] [id number] [address] [place] [phone] October, BMI 45.0-49.9, adult Z68.42 ; Mixed obsessional thoughts and acts F42.2 ; Recurrent major depressive disorder, in partial remission F33.41 and DANIELA (generalized anxiety disorder) F41.1 [facility] [address] [id number], [place] [id number] October, Benign essential hypertension I10 ; Morb id obesity E66.01 and BMI 45.0-49.9, adult Z68.42 [facility] [address] [id number], [place] [id number] Sep, [facility] [address] [id number], [place] [id number] Sep, [facility] [id number], [place] [id number] Sep, [facility] [id number], [place] [id number] Sep, Hospital discharge follow-up Z09 ; Aller gic rhinitis, unspecified seasonality, unspecified trigger J30.9 and Shortness of breath R06.02 [facility] [id number], [place] [id number] Sep, Recurrent major depressive disorder, in partial remission F33.[address] [id number], [place] [id number] Aug, Irritable mood R45.4 [place] [address] [place] [id number] [address] [place] [address] Aug, [address] [id number] [place] [address] [id number] Jul, Benign essential hypertension I10 ; Robert a R60.9 and Impacted cerumen of left ear H61.22 [place] [address] [place] [id number] [address] [place] [phone] 14 Jul, 2017 Major depression F32.9 ; Rec urrent major depressive disorder, in partial remission F33.41 and Anxiety F41.9 [place] [address] [place] [id number] [address] [place] [phone] Jun, Major depression F32.9 ; Rec urrent major depressive disorder, in partial remission F33.41 and Anxiety F41.[address] [id number] [place] [address] [id number] Jun, Major depression F32.9 ; Morbid obesity E66.01 ; Irritable mood R45.4 ; Hand weakness R29.898 and Vitamin D deficiency E55.9 [facility] [address] [id number], [place] [id number] Jun, [facility] [id number] [place] [address] [id number] May, Major depression F32.9 [facility] [address] [facility] [id number] [address] [place] [phone] May, Major depression F32.9 [facility] [id number] [place] [address] [id number] May, BMI 50.0-59.9, adult Z68.43 ; Major depr ession F32.9 ; Anxiety F41.9 ; Hypertrophic toenail L60.2 and Pain of left great toe M79.[address] [place] [id number] [place] [address] [id number] May, Recurrent major depressive disorder, in partial remission F33.41 [place] [address] [place] [id number] [address] [place] [phone] Apr, [facility] [id number] [place] [address] [id number] Apr, [facility] [address] [facility] [id number] [address] [place] [phone] Apr, Major depression F32.9 [facility] [id number] [place] [address] [id number] Apr, Severe episode of recurrent major depres sive disorder, without psychotic features F33.2 ; Anxiety F41.9 and Insomnia G47.00 [facility] [id number] [place] [address] [id number] Apr, [facility] [address] [facility] [id number] [address] [place] [phone] Apr, [facility] [address] [id number], [place] [id number] Apr, [facility] [address] [id number], [place] [id number] Mar, [facility] [address] [id number], [place] [id number] Mar, Allergic conjunctivitis of both eyes H10 .13 [facility] [address] [facility] [id number] [address] [place] [phone] Mar, Major depression F32.9 [facility] [address] [id number], [place] [id number] Mar, Metabolic syndrome E88.81 ; History of g astric bypass Z98.890 ; Benign essential hypertension I10 and Allergic conjunctivitis of both eyes H10.13 [place] [address] [place] [phone] Mar, Major depression F32.9 [facility] [address] [facility] [address] [id number], [place] [id number] Feb, [place] [address] [place] [id number] [address] [place] [phone] Feb, Major depression F32.9 [place] [address] [facility] [id number] [place] [address] [id number] Feb, Subacute maxillary sinusitis J01.00 and Bronchitis J40 [place] [address] [facility] [id number] [address] [place] [phone] Feb, Major depressive disorder, r ecurrent, moderate F33.1 [facility] [address] [id number], [place] [id number] Jan, [facility] [address] [id number], [place] [id number] Jan, Acute non-recurrent maxillary sinusitis J01.00 and Skin tag L91.8 [facility] [id number] [place] [address] [id number] Jan, Cough R05 and Sinus congestion R09.81 [facility] [address] [id number], [place] [id number] Jan, [facility] [id number] [place] [address] [id number] Jan, Benign essential hypertension I10 ; Hist ory of gastric bypass Z98.890 and Nausea and vomiting in adult R11.2 [place] [address] [place] [id number] [address] [place] [phone] 04 Jan, 2017 Major depressive disorder, r ecurrent, moderate F33.1 [place] [address] [phone] Dec, Insomnia G47.00 ; Recurrent major depressive disorder, in partial remission F33.41 and Morbid obesity E66.01 [facility] [address] [id number] [place] [address] [id number] Dec, [facility] [id number] [place] [address] [id number] Dec, Chronic bacterial conjunctivitis of left eye H10.402 [facility] [address] [id number] [place] [address] [id number] Nov, [facility] [id number] [place] [address] [id number] Nov, Dental examination Z01.[address] [id number] [place] [address] [id number] Nov, Benign essential hypertension I10 ; Hist ory of gastric bypass Z98.890 and Nausea and vomiting in adult R11.2 [place] [address] [place] [id number] [address] [place] [phone] 13 Nov, 2016 Major depressive disorder, r ecurrent, moderate F33.1 ; Generalized anxiety disorder F41.1 and Insomnia due to other mental disorder F51.05 [place] [address] [place] [id number] [address] [place] [phone] Nov, Recurrent major depressive d isorder, in partial remission F33.41 ; Insomnia G47.00 and Morbid obesity E66.01 [facility] [address] [id number] Kiesha ESCOBEDO S [id number] October, Abscess of left arm L02.414 [place] [address] [facility] [id number] [address] [place] [phone] October, Morbid obesity E66.01 ; Lida r depression F32.9 and Recurrent major depressive disorder, in partial remission F33.[address] [id number], [place] [id number] Sep, Benign essential hypertension I10 ; Morb id obesity E66.01 ; S/P gastric bypass Z98.84 ; Abscess L02.91 and Chronic bacterial conjunctivitis of left eye H10.[address] [id number] [place] [address] [id number] Sep, Dental examination Z01.20 [place] [address] [place] [phone] Sep, Morbid obesity E66.01 ; Lida r depression F32.9 and Recurrent major depressive disorder, in partial remission F33.41 [place] [address] [place] [phone] Jul, [place] [address] [place] [id number] [address] [place] [id number] Jul, Major depressive disorder, r ecurrent, moderate F33.1 [place] [address] [place] [id number] [address] [place] [phone] Jul, Major depressive disorder, r ecurrent, moderate F33.1 and Generalized anxiety disorder F41.[address] [id number] [place] [address] [id number] Jul, Cough R05 [place] [address] [place] [id number] [address] [place] [phone] Jul, Morbid obesity E66.01 ; Lida r depression F32.9 and Recurrent major depressive disorder, in partial remission F33.41 [facility] [address] [id number], [place] [id number] Jul, [facility] [address] [id number], [place] [id number] Jul, [place] [address] [id number], [place] [id number] Jul, Gastroenteritis K52.9 and Cough R05 [facility] [address] [id number], [place] [id number] Jun, Acute bacterial conjunctivitis of left e ye H10.32 [place] [address] [facility] [id number] [address] [place] [phone] Jun, [place] [address] [place] [id number] [address] [place] [phone] Jun, Recurrent major depressive d isorder, in partial remission F33.41 [place] [address] [facility] [id number] [address] [place] [phone] May, Major depression F32.9 and M orbid obesity E66.01 [place] [address] [facility] [id number] [address] [place] [address] May, [facility] [address] [facility] [id number] [place] [address] [id number] May, Thrush B37.0 [place] [address] [facility] [id number] [address] [place] [phone] Apr, Major depressive disorder, r ecurrent, moderate F33.1 [place] [address] [facility] [id number] [address] [place] [phone] 15 Apr, 2016 Insomnia G47.00 ; Major depr ession F32.9 and Recurrent major depressive disorder, in partial remission F33.41 [place] [address] [place] [id number] [address] [place] [phone] Apr, [facility] [address] [facility] [id number] [address] [place] [phone] Apr, Major depression F32.9 and R ecurrent major depressive disorder, in partial remission F33.41 [facility] [address] [id number], [place] [id number] Mar, Benign essential hypertension I10 ; Morb id obesity E66.01 ; Impacted cerumen of both ears H61.23 ; Laceration of finger of right hand, initial encounter S61.219A and Encounter for immunization Z23 [facility] [address] [facility] [id number] [address] [place] [phone] Mar, [facility] [address] [facility] [id number] [address] [place] [phone] Mar, [facility] [address] [facility] [id number] [address] [place] [phone] Mar, [place] [address] [id number], [place] [id number] Feb, Nausea R11.0 ; Blood in the stool K92.1 and Benign essential hypertension I10 [facility] [address] [facility] [id number] [address] [place] [phone] Feb, Major depression F32.9 and R ecurrent major depressive disorder, in partial remission F33.[address] [place] [address] [id number], [place] [id number] Feb, [facility] [address] [id number], [place] [id number] Feb, Recurrent major depressive disorder, in partial remission F33.41 [facility] [address] [id number], [place] [id number] Jan, [facility] [address] [id number], [place] [id number] Jan, Benign essential hypertension I10 ; Robert a R60.9 and Hyperlipidemia, unspecified hyperlipidemia type E78.5 [facility] [address] [id number], [place] [id number] Jan, Recurrent major depressive disorder, in partial remission F33.41 [facility] [address] [id number] Kiesha ESCOBEDO S [id number] Jan, [facility] [address] [id number], [place] [id number] Jan, [facility] [address] [id number], [place] [id number] Jan, [facility] [address] [facility] [id number] [address] [place] [phone] Jan, [facility] [address] [facility] [id number] [address] [place] [phone] Dec, [facility] [address] [facility] [id number] [address] [place] [phone] Nov, [facility] [address] [facility] [id number] [address] [place] [phone] Nov, Major depression F32.9 [facility] [address] [facility] [id number] [address] [place] [phone] Nov, [facility] [address] [facility] [id number] [address] [place] [phone] Nov, [facility] [address] [facility] [id number] [address] [place] [phone] Nov, Major depressive disorder, r ecurrent episode, mild F33.0 and Anxiety F41.9 [facility] [address] [id number], [place] [id number] Nov, [facility] [address] [id number], [place] [id number] October, Left elbow pain M25.522 and Other season al allergic rhinitis J30.2 [facility] [address] [id number], [place] [id number] October, [facility] [address] [facility] [id number] [address] [place] [phone] October, Major depressive disorder, r ecurrent, moderate F33.1 [place] [address] [facility] [id number] [address] [place] [phone] October, Major depression F32.9 [place] [address] [facility] [id number] [address] [place] [phone] Sep, [place] or callus L84 and Onych omycosis B35.1 [place] [address] [facility] [id number] [address] [place] [phone] Sep, Major depressive disorder, r ecurrent, moderate F33.1 [place] [address] [facility] [id number] [address] [place] [address] Sep, Major depression F32.9 [place] [address] [facility] [id number] [address] [place] [phone] Sep, Moderate episode of recurren t major depressive disorder F33.1 [facility] [address] [id number], [place] [id number] Sep, Muscle strain T14.8 [place] [address] [facility] [id number] [address] [place] [phone] Aug, Major depression F32.9 [place] [address] [facility] [id number] [address] [place] [phone] Aug, Major depression F32.9 [place] [address] [facility] [id number] [address] [place] [phone] Jul, Morbid obesity E66.01 and Ma cora depression F32.9 [place] [address] [facility] [id number] [address] [place] [phone] Jul, Depression, major, recurrent , moderate F33.1 [facility] [address] [id number], [place] [id number] Jul, [place] [address] [phone] Jul, [place] [address] [phone] 16 Jul, 2015 Major depression F32.9 and M orbid obesity E66.[address] [id number], [place] [id number] Jul, Type II diabetes mellitus E11.9 ; Callus of foot L84 ; Benign essential hypertension I10 and Renal insufficiency N28.9 [place] [address] [phone] 09 Jul, 2015 Depression, major, recurrent , moderate F33.1 [place] [address] [phone] 05 Jul, 2015 Major depression F32.9 [place] [address] [phone] Jul, [place] [address] [phone] Jun, Major depression F32.9 [place] [address] [phone] Jun, Major depressive disorder, r ecurrent, moderate F33.1 [place] [address] [phone] Jun, [place] [address] [phone] Jun, Major depressive disorder, r ecurrent, moderate F33.1 and Major depression F32.9 [facility] [address] [place] [address] AVE [id number], [place] [id number] Jun, Type II diabetes mellitus E11.9 [place] [address] [place] [id number] [address] [place] [phone] Jun, Depression, major, recurrent , moderate F33.1 [place] [address] [place] [id number] [address] [place] [phone] May, Major depressive disorder, r ecurrent, moderate F33.1 [place] [address] [facility] [id number] [address] [place] [phone] May, [facility] [id number] [place] [id number] May, Edema R60.9 [place] [address] [address] [facility] [place] [id number] [address] [place] [id number] May, Insomnia G47.00 and Major de pression F32.[address] [id number] [place] [address] [id number] May, 2015 Morbid obesity E66.01 ; Edema R60.9 ; Sh ortness of breath R06.02 ; Benign essential hypertension I10 and Renal insufficiency N28.[id number] [place] [id number] May, Hyperlipemia 272.4 and Renal insufficien cy N28.9 [place] [address] [address] [facility] [place] [id number] [address] [place] [phone] Apr, Major depression F32.9 [place] [address] [address] [facility] [place] [id number] [address] [place] [phone] Apr, [place] [address] [address] [facility] [id number] [address] [place] [phone] Apr, Major depressive disorder, r ecurrent, moderate F33.[address] [place] [id number] [place] [id number] Apr, Type II diabetes mellitus E11.9 ; Benign essential hypertension I10 ; Edema R60.9 and Renal insufficiency N28.9 [place] [address] [address] [facility] [id number] [address] [place] [phone] Mar, Major depressive disorder, r ecurrent, moderate F33.1 [place] [address] [address] [facility] [id number] [address] [place] [address] Mar, [place] [address] [address] [facility] [id number] [address] [place] [address] Mar, Major depression F32.[address] [id number] [id number] Mar, Morbid obesity E66.01 ; Benign essential hypertension I10 and Type II diabetes mellitus E11.9 [place] [address] [address] [place] [id number] [address] [place] [address] Feb, Major depressive disorder, r ecurrent episode, in partial or unspecified remission 296.35 ; Anxiety state, unspecified 300.00 and Morbid obesity 278.01 [place] [address] [address] [place] [id number] [address] [place] [address] Feb, Major depressive disorder, r ecurrent, moderate F33.1 [place] [address] [address] [place] [id number] [address] [place] [id number] Feb, [address] [id number] [place] [id number] Feb, Vomiting 787.03 and Viral syndrome 079.9 9 [place] [address] [address] [place] [id number] [address] [place] [id number] 15 Feb, 2015 Major depression, recurrent 296.30 ; Generalized anxiety disorder 300.02 and No condition on [place] II V71.[address] [id number] [place] [id number] Feb, Skin tag 701.9 [place] [address] [address] [facility] [id number] [address] [place] [address] Feb, [address] [id number] [address] [place] [address] Jan, Depression, major, recurrent , moderate 296.[address] [id number] [place] [id number] Jan, Nausea and vomiting 787.01 ; Rib pain on right side 786.50 and Fall on or from sidewalk curb E880.1 [facility] [address] [facility] [id number] [address] [place] [address] Jan, [facility] [address] [facility] [id number] [address] [place] [address] Jan, Major depressive disorder, r ecurrent episode, in partial or unspecified remission 296.35 and Anxiety state, unspecified 300.[address] [id number][place] [id number] Jan, [facility] [address] [facility] [id number] [address] [place] [phone] Jan, Depression, major, recurrent , moderate 296.32 [place] [address] [address] [facility] [id number] [address] [place] [address] Jan, Major depression, recurrent 296.30 ; No condition on [place] II V71.09 and No condition on axis III V71.[address] [id number] [id number] Jan, Drug-induced nausea and vomiting 787.01 [place] [id number] [address] [place] [address] Jan, Depression, major, recurrent , moderate 296.[address] [id number] [address] [place] [address] Dec, Depression, major, recurrent , moderate 296.32 [address] [id number] [id number] Dec, Morbid obesity 278.01 ; Metabolic syndro me 277.7 ; Hyperlipemia 272.4 ; Benign essential hypertension 401.1 ; Dietary counseling V65.3 ; Exercise counseling V65.41 and Inflamed skin tag 701.[address] [id number] [address] [place] [address] Dec, Depression, major, recurrent , moderate 296.[address] [place] [address] Dec, [place] [address] [address] Dec, Major depression, recurrent 296.30 ; Anxiety, generalized 300.02 and No condition on [place] II V71.09 [place] [address] [address] Dec, Depression, major, recurrent , moderate 296.32 [place] [address] [address] Dec, Major depressive disorder, r ecurrent episode, moderate 296.[address] [address] Dec, Depression, major, recurrent , moderate 296.[address] [address] Dec, Depression, major, recurrent , moderate 296.32 [place] [address] [address] Dec, Depression, major, recurrent , moderate 296.[address] [address] Dec, Depression, major, recurrent , moderate 296.[address] [address] Nov, Depression, major, recurrent , moderate 296.32 [place] [address] [address] Nov, Major depression 296.20 ; So cial phobia 300.23 and No condition on [place] II V71.[address] [address] Nov, Depression, major, recurrent , moderate 296.[address] [address] Nov, Major depressive disorder, r ecurrent episode, moderate 296.32 and Generalized anxiety disorder 300.02 [facility] [address] [id number] [address] [place] [address] Nov, Depression, major, recurrent , moderate 296.32 [facility] [address] [id number] [address] [place] [address] Nov, Depression, major, recurrent , moderate 296.32 [facility] [address] [id number] [address] [place] [address] October, Generalized anxiety disorder 300.02 ; No condition on [place] II V71.09 and Major depressive disorder, recurrent 296.30 [facility] [address] [id number] [address] [place] [address] Sep, [facility] [address] [id number] [address] [place] [address] Sep, [facility] [address] [id number] [address] [place] [phone] Aug, [facility] [address] [id number] [address] [place] [phone] Aug, [facility] [address] [id number] [address] [place] [phone] Aug, [facility] [address] [id number] [address] [place] [address] Aug, [facility] [address] [id number] [address] [place] [address] Aug, [facility] [address] [id number] [address] [place] [id number] Aug, [facility] [address] [id number] [address] [place] [address] Aug, [facility] [address] [id number] [address] [place] [address] Aug, [facility] [address] [id number] [address] [place] [id number] 13 Aug, 2014 [facility] [address] [id number] [address] [place] [address], [place] [address] 13 Aug, 2014 [facility] [address] [id number] [address] [place] [address], [place] [address] 13 Aug, 2014 [facility] [address] [id number] [address] [place] [address], [place] [address] Aug, [facility] [address] [id number] [address] [place] [address], [place] [address] Aug, [facility] [address] [id number] [address] [place] [address], [place] [address] Aug, [facility] [address] [id number] [address] [place] [address], [place] [address] Aug, [facility] [address] [id number] [address] [place] [address], [place] [address] Aug, [facility] [address] [id number] [address] [place] [address], [place] [address] Aug, [facility] [address] [id number] [address] [place] [address], [place] [address] Aug, [facility] [address] [id number] [address] [place] [address], [place] [address] Jul, [facility] [address] [id number] [address] [place] [address], [place] [address] Jul, 2014 [facility] [address] [id number] [address] [place] [id number] Jul, 2014 [facility] [address] [id number] [address] [place] [address], [place] [address] Jul, 2014 [facility] [address] [id number] [address] [place] [address], [place] [address] Jul, 2014 [facility] [address] [id number] [address] [place] [id number] 02 Jul, 2014 [facility] [address] [id number] [address] [place] [address], [place] [address] Jun, [facility] [address] [id number] [address] [place] [address], [place] [address] Jun, [facility] [address] [id number] [address] [place] [address], [place] [address] Jun, [facility] [address] [id number] [address] [place] [address], [place] [address] Jun, [facility] [address] [id number] [address] [place] [address], [place] [address] Jun, [facility] [address] [id number] [address] [place] [address], [place] [address] Jun, [facility] [address] [id number] [address] [place] [address], [place] [address] Jun, [facility] [address] [id number] [address] [place] [address], [place] [address] Jun, [facility] [address] [id number] [address] [place] [address], [place] [address] Jun, [facility] [address] [id number] [address] [place] [address], [place] [address] Jun, [facility] [address] [id number] [address] [place] [address], [place] [address] Jun, [facility] [address] [id number] [address] [place] [address], [place] [address] Jun, [facility] [place] [address] [id number] [id number] Jun, [facility] [address] [id number] [address] [place] [address], [place] [address] Jun, [facility] [address] [id number] [address] [place] [address], [place] [address] Jun, [facility] [address] [id number] [address] [place] [address] [address] Jun, [facility] [address] [id number] [address] [place] [address], [place] [address] May, [facility] [address] [id number] [address] [place] [address], [place] [address] May, [facility] [address] [id number] [address] [place] [address], [place] [address] May, [facility] [address] [id number] [address] [place] [address], [place] [address] May, [facility] [address] [id number] [address] [place] [address], [place] [address] Apr, [facility] [address] [id number] [address] [place] [address], [place] [address] Apr, [facility] [address] [id number] [address] [place] [address], [place] [address] Apr, [facility] [address] [id number] [address] [place] [address], [place] [address] Apr, [facility] [address] [id number] [address] [place] [address], [place] [address] Apr, [facility] [address] [id number] [address] [place] [address], [place] [address] Apr, [facility] [address] [id number] [address] [place] [address] Apr, [facility] [address] [id number] [address] [place] [address] Apr, [facility] [address] [id number] [address] [place] [address], [place] [address] Apr, [facility] [address] [id number] [address] [place] [address], [place] [address] Apr, [facility] [address] [id number] [address] [place] [address], [place] [address] Apr, [facility] [address] [id number] [address] [place] [address], [place] [address] Apr, [facility] [address] [id number] [address] [place] [address], [place] [address] Apr, [facility] [address] [id number] [address] [place] [address], [place] [address] Apr, [facility] [address] [id number] [address] [place] [address], [place] [address] Apr, [facility] [address] [id number] [address] [place] [address], [place] [address] Apr, [facility] [address] [id number] [address] [place] [address], [place] [address] Apr, [facility] [address] [id number] [address] [place] [address], [place] [address] Apr, [facility] [address] [id number] [address] [place] [address], [place] [address] Apr, [facility] [address] [id number] [address] [place] [address], [place] [address] Apr, [facility] [address] [id number] [address] [place] [address], [place] [address] Mar, [facility] [address] [id number] [address] [place] [address], [place] [address] Mar, [facility] [address] [id number] [address] [place] [address], [place] [address] Mar, [facility] [address] [id number] [address] [place] [address], [place] [address] Mar, [facility] [address] [id number] [address] [place] [address], [place] [address] Mar, [facility] [address] [id number] [address] [place] [address], [place] [address] Mar, [facility] [address] [id number] [address] [place] [address], [place] [address] Mar, [facility] [address] [id number] [address] [place] [address], [place] [address] Mar, [facility] [address] [id number] [address] [place] [address], [place] [address] Mar, [facility] [address] [id number] [address] [place] [address], [place] [address] Mar, [facility] [address] [id number] [address] [place] [address], [place] [address] Feb, [facility] [address] [id number] [address] [place] [address], [place] [address] Feb, [facility] [address] [id number] [address] [place] [address], [place] [address] Feb, [facility] [address] [id number] [address] [place] [address], [place] [address] Feb, [facility] [address] [id number] [address] [place] [address], [place] [address] Jan, [facility] [address] [id number] [address] [place] [address], [place] [address] Jan, [facility] [address] [id number] [address] [place] [address], [place] [address] Jan, [facility] [address] [id number] [address] [place] [address], [place] [address] Jan, [facility] [address] [id number] [address] [place] [address], [place] [address] Jan, [facility] [address] [id number] [address] [place] [address], [place] [address] Jan, [facility] [address] [id number] [address] [place] [address], [place] [address] Dec, [facility] [address] [id number] [address] [place] [address], [place] [address] Dec, [facility] [address] [id number] [address] [place] [address], [place] [address] Nov, [facility] [address] [id number] [facility] [address] Nov, [facility] [address] [id number] [address] [place] [address], [place] [address] Nov, [facility] [address] [id number] [address] [place] [address], [place] [address] Nov, [facility] [address] [id number] [address] [place] [address], [place] [address] Nov, [facility] [address] [id number] [address] [place] [address], [place] [address] Nov, [facility] [address] [id number] [address] [place] [address], [place] [address] Sep, [facility] [address] [id number] [address] [place] [address], [place] [address] Sep, [facility] [address] [id number] [address] [place] [address], [place] [address] Sep, [facility] [address] [id number] [address] [place] [address], [place] [address] Sep, [facility] [address] [id number] [address] [place] [address], [place] [address] Aug, [facility] [address] [id number] [address] [place] [address], [place] [address] Aug, [facility] [address] [id number] [address] [place] [address], [place] [address] Jul, [facility] [address] [id number] [address] [place] [address], [place] [address] Jul, [facility] [address] [id number] [address] [place] [address], [place] [address] Jun, [facility] [address] [id number] [address] [place] [address], [place] [address] Jun, [facility] [address] [id number] [address] [place] [address], [place] [address] 16 Jun, 2013 [facility] [address] [id number] [address] [place] [address], [place] [address] Jun, [facility] [address] [id number] [address] [place] [address], [place] [address] May, [facility] [address] [id number] [address] [place] [address], [place] [address] May, [facility] [address] [id number] [address] [place] [address], [place] [address] May, [facility] [address] [id number] [address] [place] [address], [place] [address] May, [facility] [address] [id number] [address] [place] [address], [place] [address] May, [facility] [address] [id number] [address] [place] [address], [place] [address] May, [facility] [address] [id number] [address] [place] [address], [place] [address] Apr, [facility] [address] [id number] [address] [place] [address], [place] [address] Apr, [facility] [address] [id number] [address] [place] [address], [place] [address] Apr, [facility] [address] [id number] [address] [place] [address], [place] [address] Apr, [facility] [address] [id number] [address] [place] [address], [place] [address] Mar, [facility] [address] [id number] [address] [place] [address], [place] [address] Mar, [facility] [address] [id number] [address] [place] [address], [place] [address] Mar, [facility] [address] [id number] [address] [place] [address], [place] [address] Mar, [facility] [address] [id number] [address] [place] [address], [place] [address] Feb, [facility] [address] [id number] [place] [id number] Jan, [facility] [address] [id number] [address] [place] [address], [place] [address] Jan, [facility] [address] [id number] [address] [place] [address], [place] [address] Dec, [facility] [address] [id number] [address] [place] [address], [place] [address] Dec, [facility] [address] [id number] [address] [place] [address], [place] [address] Dec, [facility] [place] [address] [id number] [place] [id number] Dec, [facility] [address] [id number] [address] [place] [address], [place] [address] Nov, [facility] [address] [id number] [address] [place] [address], [place] [address] Nov, [facility] [address] [id number] [address] [place] [address], [place] [address] Nov, [facility] [address] [id number] [address] [place] [address], [place] [address] Nov, [facility] [address] [id number] [address] [place] [address], [place] [address] Nov, [facility] [address] [id number] [address] [place] [address], [place] [address] October, [facility] [address] [id number] [address] [place] [address], [place] [address] October, [facility] [address] [id number] [address] [place] [address], [place] [address] Aug, [facility] [address] [id number] [address] [place] [address], [place] [id number] Nov, IMMUNIZATIONS No Known Immunizations SOCIAL HISTORY Never Assessed REASON FOR VISIT f/u [place], Developmental issues / anxiety / depression PLAN OF CARE Activity Details Follow Up 4 Months Reason: VITAL SIGNS Height 71.5 in 2018-04-05 Weight 352.2 lbs 2018-04-05 Heart Rate 72 bpm 2018-04-05 Respiratory Rate 20 2018-04-05 BMI 48.43 kg/m2 2018-04-05 Blood pressure systolic 142 mmHg 2018-04-05 Blood pressure diastolic 84 mmHg 2018-04-05 MEDICATIONS Medication Instructions Dosage Frequency Start Date End Date Duration S tatus Triamcinolone Acetonide 0.1 % Externally Twice a day 1 appli cation to affected area 12h Mar, 7 days Active BusPIRone HCl 15 mg Orally three times a day for anxiety 1 tablet Apr, Active Lamictal 100 mg Orally Once a day 1 tablet 24h Jun, Active Baclofen 10 mg Orally Three times a day 1/2 tablet 8h Active Zofran 8 MG Orally Once a day 1 tablet 24h A ctive Atenolol 100 mg Orally Once a day 1 tablet Once a day Orally 24h 90 days Active Lasix 20 mg Orally Once a day as needed for swelling 1 tablet Active Ketoconazole 2 % Externally Once a day 1 application to affected area 24 h Active Centrum - Active Vitamin D-3 1000 UNIT Orally Once a day 3 capsule 24h Active Trazodone HCl 50 mg Orally Once a day- bedtime 1 tablet Nov, Active Cetirizine HCl 10 mg Orally Once a day 1 tablet 24h 90 Active Flonase 50 mcg/act nasally once per day 1 spray (50 mcg) in each nostril by intranasal route 2 times per day Nov, Active Viibryd 40 mg Orally Once a day 1 tablet with food 24h May, Active Montelukast Sodium 10 MG TAKE 1 TABLET BY MOUTH ONCE DAILY 90 Active Omeprazole 40 mg Orally Once a day 1 tablet 24h 45 d ays Active Lisinopril 40 mg Orally Once a day 1 tablet Once a day Orally 24h 90 days Active Flovent HFA 110 mcg/act inhalation once per day 1-3 Puffs 1 time pe r day October, 0 Active RESULTS No Results PROCEDURES No Known [...] 03/2016 Hospitalization History gastric sleeve Hospitalization History [facility] Trouble with left shoulder blade 08/2017
--- OUTSIDE RECORDS SUMMARY | 2019-11-29 09:23 | XMS REPORT ---
Author Author Silvia CASTROy NORMAN Organization [facility] [place] Address [address] [place] [address] Care Team Providers Care Csr Technician Name Role Phone NORMAN CASTRO Unavailable PROBLEMS Type Condition ICD9-CM Code TFH47-UN Code Onset Dates Condition S tatus SNOMED Code Problem Metabolic syndrome E88.81 Active 2 23821970 Problem Severe episode of recurrent major depressive disorder, without psychotic features F33.2 Active 01597698 Problem Anxiety F41.9 Active 82597858 Problem Depressive disorder, not elsewhere classified F32. 9 Active 72065016 Problem Sciatica, right side M54.31 Active [id number] Problem Mixed obsessional thoughts and acts F42.2 Active 11792215 Problem Vitamin D deficiency E55.9 Active 84233449 Problem DANIELA (generalized anxiety disorder) F41.1 Active 25002855 Problem BMI 45.0-49.9, adult Z68.42 Active 123029771 Problem Hyperlipemia E78.5 Active 7687471 4 Problem Major depression F32.9 Active 370 513309 Problem Insomnia G47.00 Active 545413270 Problem Renal insufficiency N28.9 Active 885266641 Problem Edema R60.9 Active 868721917 Problem Morbid obesity E66.01 Active 51071 6002 Problem Callus of foot L84 Active 15690 1005 Problem Benign essential hypertension I10 Active 3715074 Problem Recurrent major depressive disorder, in partial remission F33.41 Active 94498039 ALLERGIES No Information ENCOUNTERS Encounter Location Date Diagnosis [facility] [place] [address] [facility] [id number] [address] [place] [address] Jun, [facility] [address] [facility] [id number] [place] [address] [id number] May, [facility] [place] [address] [facility] [id number] [address] [place] [phone] May, [place] [address] [facility] [id number] [address] [place] [address] Apr, [place] [address] [place] [id number] [address] [place] [address] Mar, Mixed obsessional thoughts a nd acts F42.2 ; Recurrent major depressive disorder, in partial remission F33.41 ; DANIELA (generalized anxiety disorder) F41.1 and BMI 45.0-49.9, adult Z68.[address] [place] [address] [id number][place] [id number] Mar, [place] [address] [id number], [place] [id number] Mar, BMI 45.0-49.9, adult Z68.42 ; Instabilit y of right knee joint M25.361 and Rash R21 [place] [address] [place] [id number] [address] [place] [address] Jan, Recurrent major depressive d isorder, in partial remission F33.41 ; Mixed obsessional thoughts and acts F42.2 and BMI 45.0-49.9, adult Z68.42 [place] [address] [facility] [address] [id number], [place] [id number] Jan, [place] [address] [id number], [place] [id number] Jan, Benign essential hypertension I10 ; BMI 45.0-49.9, adult Z68.42 ; Metabolic syndrome E88.81 and Allergic rhinitis, unspecified seasonality, unspecified trigger J30.9 [facility] [place] [address] [facility] [id number] [address] [place] [address] Dec, DANIELA (generalized anxiety dis order) F41.1 and Depressive disorder, not elsewhere classified F32.9 [facility] [address] [id number], [place] [id number] Dec, Recurrent major depressive disorder, in partial remission F33.[address] [place] [place] [address] [id number], [place] [id number] Dec, [facility] [address] [address] [id number], [place] [id number] Nov, [facility] [address] [address] [id number], [place] [id number] Nov, Recurrent major depressive disorder, in partial remission F33.41 [facility] [place] [address] [facility] [id number] [address] [place] [address] Nov, Recurrent major depressive d isorder, in partial remission F33.41 ; Mixed obsessional thoughts and acts F42.2 ; DANIELA (generalized anxiety disorder) F41.1 and BMI 45.0-49.9, adult Z68.42 [facility] [address] [id number], [place] [id number] Nov, [facility] [address] [id number], [place] [id number] Nov, Other conjunctivitis of both eyes H10.89 and Sciatica, right side M54.31 [facility] [address] [id number], [place] [id number] Nov, [facility] [address] [id number], [place] [id number] Nov, [facility] [address] [id number], [place] [id number] October, [facility] [address] [id number], [place] [id number] October, [facility] [place] [address] [facility] [id number] [address] [place] [address] October, BMI 45.0-49.9, adult Z68.42 ; Mixed obsessional thoughts and acts F42.2 ; Recurrent major depressive disorder, in partial remission F33.41 and DANIELA (generalized anxiety disorder) F41.1 [facility] [address] [id number], [place] [id number] October, Benign essential hypertension I10 ; Morb id obesity E66.01 and BMI 45.0-49.9, adult Z68.42 [facility] [place] [address] [id number], [place] [id number] Sep, [facility] [address] [id number], [place] [id number] Sep, [facility] [address] [id number], [place] [id number] Sep, [address] [id number], [place] [id number] Sep, Hospital discharge follow-up Z09 ; Aller gic rhinitis, unspecified seasonality, unspecified trigger J30.9 and Shortness of breath R06.[address] [id number], [place] [id number] Sep, Recurrent major depressive disorder, in partial remission F33.[address] [id number], [place] [id number] Aug, Irritable mood R45.4 [place] [address] [place] [id number] [place] [address] Aug, [address] [id number], [place] [id number] Jul, Benign essential hypertension I10 ; Robert a R60.9 and Impacted cerumen of left ear H61.22 [place] [address] [place] [id number] [address] [place] [phone] 14 Jul, 2017 Major depression F32.9 ; Rec urrent major depressive disorder, in partial remission F33.41 and Anxiety F41.9 [place] [address] [place] [id number] [address] [place] [address] Jun, Major depression F32.9 ; Rec urrent major depressive disorder, in partial remission F33.41 and Anxiety F41.[address] [id number], [place] [id number] Jun, Major depression F32.9 ; Morbid obesity E66.01 ; Irritable mood R45.4 ; Hand weakness R29.898 and Vitamin D deficiency E55.9 [facility] [address] [id number], [place] [id number] Jun, [facility] [address] [id number], [place] [id number] May, Major depression F32.9 [place] [address] [place] [id number] [address] [place] [address] May, Major depression F32.9 [facility] [id number] [place] [address] [id number] May, BMI 50.0-59.9, adult Z68.43 ; Major depr ession F32.9 ; Anxiety F41.9 ; Hypertrophic toenail L60.2 and Pain of left great toe M79.[address] [place] [id number] [place] [address] [id number] May, Recurrent major depressive disorder, in partial remission F33.41 [place] [address] [place] [id number] [address] [place] [address] Apr, [place] [id number] [place] [address] [id number] Apr, [place] [address] [facility] [id number] [address] [place] [address] Apr, Major depression F32.9 [facility] [id number] [place] [address] [id number] Apr, Severe episode of recurrent major depres sive disorder, without psychotic features F33.2 ; Anxiety F41.9 and Insomnia G47.00 [facility] [id number] [place] [address] [id number] Apr, [place] [address] [facility] [id number] [address] [place] [address] Apr, [facility] [id number] [place] [address] [id number] Apr, [facility] [address] [id number], [place] [id number] Mar, [facility] [address] [id number], [place] [id number] Mar, Allergic conjunctivitis of both eyes H10 .13 [facility] [place] [address] [facility] [id number] [address] [place] [address] Mar, Major depression F32.9 [facility] [address] [id number], [place] [id number] Mar, Metabolic syndrome E88.81 ; History of g astric bypass Z98.890 ; Benign essential hypertension I10 and Allergic conjunctivitis of both eyes H10.13 [facility] [place] [address] [facility] [id number] [address] [place] [address] Mar, Major depression F32.9 [place] [address] [facility] [address] [id number], [place] [id number] Feb, [facility] [place] [address] [facility] [id number] [address] [place] [address] Feb, Major depression F32.9 [place] [address] [facility] [address] [id number], [place] [id number] Feb, Subacute maxillary sinusitis J01.00 and Bronchitis J40 [place] [address] [facility] [id number] [address] [place] [address] Feb, Major depressive disorder, r ecurrent, moderate F33.1 [facility] [address] [facility] [address] [id number], [place] [id number] Jan, [place] [address] [facility] [address] [id number], [place] [id number] Jan, Acute non-recurrent maxillary sinusitis J01.00 and Skin tag L91.[address] [id number], [place] [id number] Jan, Cough R05 and Sinus congestion R09.81 [facility] [address] [id number], [place] [id number] Jan, [facility] [address] [id number], [place] [id number] Jan, Benign essential hypertension I10 ; Hist ory of gastric bypass Z98.890 and Nausea and vomiting in adult R11.2 [place] [address] [place] [id number] [address] [place] [phone] 04 Jan, 2017 Major depressive disorder, r ecurrent, moderate F33.1 [place] [address] [place] [id number] [address] [place] [address] Dec, Insomnia G47.00 ; Recurrent major depressive disorder, in partial remission F33.41 and Morbid obesity E66.01 [facility] [address] [id number], [place] [id number] Dec, [facility] [address] [id number] [place] [address] [id number] Dec, Chronic bacterial conjunctivitis of left eye H10.[address] [id number] [place] [address] [id number] Nov, [facility] [address] [id number] [place] [address] [id number] Nov, Dental examination Z01.[address] [id number] [place] [address] [id number] Nov, Benign essential hypertension I10 ; Hist ory of gastric bypass Z98.890 and Nausea and vomiting in adult R11.2 [place] [address] [facility] [id number] [address] [place] [phone] 13 Nov, 2016 Major depressive disorder, r ecurrent, moderate F33.1 ; Generalized anxiety disorder F41.1 and Insomnia due to other mental disorder F51.05 [place] [address] [facility] [id number] [address] [place] [address] Nov, Recurrent major depressive d isorder, in partial remission F33.41 ; Insomnia G47.00 and Morbid obesity E66.01 [facility] [address] [id number] Kiesha ESCOBEDO S [id number] October, Abscess of left arm L02.414 [facility] [place] [address] [place] [id number] [address] [place] [address] October, Morbid obesity E66.01 ; Lida r depression F32.9 and Recurrent major depressive disorder, in partial remission F33.41 [place] [address] [facility] [address] [id number], [place] [id number] Sep, Benign essential hypertension I10 ; Morb id obesity E66.01 ; S/P gastric bypass Z98.84 ; Abscess L02.91 and Chronic bacterial conjunctivitis of left eye H10.[id number] [place] [address] [id number] Sep, Dental examination Z01.20 [place] [address] [place] [address] Sep, Morbid obesity E66.01 ; Lida r depression F32.9 and Recurrent major depressive disorder, in partial remission F33.41 [place] [address] [place] [id number] [address] [place] [phone] Jul, [place] [address] [phone] Jul, Major depressive disorder, r ecurrent, moderate F33.1 [place] [address] [place] [id number] [address] [place] [phone] Jul, Major depressive disorder, r ecurrent, moderate F33.1 and Generalized anxiety disorder F41.[id number] [place] [address] [id number] Jul, Cough R05 [place] [address] [place] [id number] [address] [place] [phone] 16 Jul, 2016 Morbid obesity E66.01 ; Lida r depression F32.9 and Recurrent major depressive disorder, in partial remission F33.41 [facility] [address] [id number], [place] [id number] Jul, [facility] [address] [id number], [place] [id number] Jul, [facility] [address] [id number], [place] [id number] Jul, Gastroenteritis K52.9 and Cough R05 [facility] [address] [facility] [address] [id number], [place] [id number] Jun, Acute bacterial conjunctivitis of left e ye H10.32 [place] [address] [facility] [id number] [address] [place] [phone] Jun, [place] [address] [phone] Jun, Recurrent major depressive d isorder, in partial remission F33.41 [place] [address] [place] [address] May, Major depression F32.9 and M orbid obesity E66.01 [place] [address] [place] [id number] [address] [place] [address] May, [facility] [address] [facility] [id number] [place] [address] [id number] May, Thrush B37.0 [place] [address] [place] [phone] Apr, Major depressive disorder, r ecurrent, moderate F33.1 [place] [address] [facility] [id number] [address] [place] [address] Apr, Insomnia G47.00 ; Major depr ession F32.9 and Recurrent major depressive disorder, in partial remission F33.41 [place] [address] [place] [id number] [address] [place] [phone] Apr, [place] [address] [place] [id number] [address] [place] [address] Apr, Major depression F32.9 and R ecurrent major depressive disorder, in partial remission F33.[address] [place] [address] [id number], [place] [id number] Mar, Benign essential hypertension I10 ; Morb id obesity E66.01 ; Impacted cerumen of both ears H61.23 ; Laceration of finger of right hand, initial encounter S61.219A and Encounter for immunization Z23 [facility] [place] [address] [facility] [id number] [address] [place] [phone] 17 Mar, 2016 [facility] [place] [address] [facility] [id number] [address] [place] [phone] Mar, [place] [address] [facility] [id number] [address] [place] [address] Mar, [address] [id number], [place] [id number] Feb, Nausea R11.0 ; Blood in the stool K92.1 and Benign essential hypertension I10 [place] [address] [facility] [id number] [address] [place] [address] Feb, Major depression F32.9 and R ecurrent major depressive disorder, in partial remission F33.41 [place] [address] [facility] [address] [id number], [place] [id number] Feb, [facility] [address] [place] [address] [id number], [place] [id number] Feb, Recurrent major depressive disorder, in partial remission F33.[address] [address] [id number], [place] [id number] Jan, [facility] [address] [place] [address] [id number], [place] [id number] Jan, Benign essential hypertension I10 ; Robert a R60.9 and Hyperlipidemia, unspecified hyperlipidemia type E78.[address] [place] [address] [id number], [place] [id number] Jan, Recurrent major depressive disorder, in partial remission F33.41 [facility] [address] [id number] Kiesha ESCOBEDO S [id number] Jan, [facility] [address] [id number], [place] [id number] Jan, [facility] [address] [id number], [place] [id number] Jan, [facility] [place] [address] [facility] [id number] [address] [place] [phone] Jan, [facility] [place] [address] [facility] [id number] [address] [place] [phone] Dec, [facility] [place] [address] [facility] [id number] [address] [place] [phone] Nov, [facility] [place] [address] [facility] [id number] [address] [place] [address] Nov, Major depression F32.9 [facility] [place] [address] [facility] [id number] [address] [place] [phone] Nov, [facility] [place] [address] [facility] [id number] [address] [place] [phone] Nov, [facility] [place] [address] [facility] [id number] [address] [place] [phone] Nov, Major depressive disorder, r ecurrent episode, mild F33.0 and Anxiety F41.9 [facility] [address] [id number], [place] [id number] Nov, [facility] [address] [id number], [place] [id number] October, Left elbow pain M25.522 and Other season al allergic rhinitis J30.2 [facility] [address] [id number], [place] [id number] October, [facility] [place] [address] [facility] [id number] [address] [place] [phone] October, Major depressive disorder, r ecurrent, moderate F33.1 [facility] [place] [address] [id number] [address] [place] [phone] October, Major depression F32.9 [facility] [place] [address] [id number] [address] [place] [phone] Sep, Austin or callus L84 and Onych omycosis B35.1 [facility] [place] [address] [id number] [address] [place] [phone] Sep, Major depressive disorder, r ecurrent, moderate F33.1 [facility] [place] [address] [id number] [address] [place] [phone] Sep, Major depression F32.9 [place] [address] [facility] [id number] [address] [place] [phone] Sep, Moderate episode of recurren t major depressive disorder F33.1 [facility] [address] [id number], [place] [id number] Sep, Muscle strain T14.8 [facility] [place] [address] [id number] [address] [place] [phone] Aug, Major depression F32.9 [facility] [place] [address] [facility] [id number] [address] [place] [address] Aug, Major depression F32.9 [facility] [place] [address] [id number] [address] [place] [phone] Jul, Morbid obesity E66.01 and Ma cora depression F32.9 [facility] [place] [address] [id number] [address] [place] [phone] Jul, Depression, major, recurrent , moderate F33.1 [facility] [address] [id number], [place] [id number] Jul, [facility] [place] [address] [facility] [id number] [address] [place] [phone] Jul, [place] [address] [facility] [id number] [address] [place] [phone] 16 Jul, 2015 Major depression F32.9 and M orbid obesity E66.01 [facility] [address] [facility] [address] [id number], [place] [id number] 11 Jul, 2015 Type II diabetes mellitus E11.9 ; Callus of foot L84 ; Benign essential hypertension I10 and Renal insufficiency N28.9 [place] [address] [facility] [id number] [address] [place] [phone] 09 Jul, 2015 Depression, major, recurrent , moderate F33.1 [place] [address] [id number] Jul, Major depression F32.9 [place] [address] [phone] Jul, [place] [address] [phone] Jun, Major depression F32.9 [place] [id number] [place] [phone] Jun, Major depressive disorder, r ecurrent, moderate F33.1 [place] [id number] [place] [phone] Jun, [place] [address] [place] [phone] Jun, Major depressive disorder, r ecurrent, moderate F33.1 and Major depression F32.9 [facility] [address] [id number] [id number] Jun, Type II diabetes mellitus E11.9 [place] [address] [facility] [id number] [address] [place] [phone] Jun, Depression, major, recurrent , moderate F33.1 [place] [address] [facility] [id number] [address] [place] [id number] May, Major depressive disorder, r ecurrent, moderate F33.1 [facility] [place] [address] [facility] [id number] [address] [place] [phone] May, [address] [id number] [id number] May, Edema R60.9 [facility] [place] [address] [facility] [id number] [address] [place] [phone] May, Insomnia G47.00 and Major de pression F32.[id number] [place] [id number] May, Morbid obesity E66.01 ; Edema R60.9 ; Sh ortness of breath R06.02 ; Benign essential hypertension I10 and Renal insufficiency N28.[address] [id number] [place], [place] [address] [id number] May, Hyperlipemia 272.4 and Renal insufficien cy N28.9 [place] [address] [facility] [id number] [address] [place] [address] Apr, Major depression F32.9 [place] [address] [facility] [id number] [address] [place] [address] Apr, [place] [address] [facility] [id number] [address] [place] [address] Apr, Major depressive disorder, r ecurrent, moderate F33.[id number] [place] [address] [id number] Apr, Type II diabetes mellitus E11.9 ; Benign essential hypertension I10 ; Edema R60.9 and Renal insufficiency N28.9 [place] [address] [facility] [id number] [address] [place] [address] Mar, Major depressive disorder, r ecurrent, moderate F33.1 [place] [address] [facility] [id number] [address] [place] [address] Mar, [place] [address] [facility] [id number] [address] [place] [address] Mar, Major depression F32.[address] [id number] [place] [address] [id number] Mar, Morbid obesity E66.01 ; Benign essential hypertension I10 and Type II diabetes mellitus E11.9 [place] [address] [address] [place] [id number] [address] [place] [address] Feb, Major depressive disorder, r ecurrent, moderate F33.1 [place] [address] [address] [place] [id number] [address] [place] [address] Feb, Major depressive disorder, r ecurrent episode, in partial or unspecified remission 296.35 ; Anxiety state, unspecified 300.00 and Morbid obesity 278.01 [place] [address] [address] [place] [id number] [address] [place] [address] Feb, [address] [id number] [place] [address] [id number] Feb, Vomiting 787.03 and Viral syndrome 079.9 9 [place] [address] [address] [place] [id number] [address] [place] [address] Feb, Major depression, recurrent 296.30 ; Generalized anxiety disorder 300.02 and No condition on Davis II V71.[address] [id number] [place] [address] [id number] Feb, Skin tag 701.9 [place] [address] [facility] [id number] [address] [place] [address] Feb, [place] [address] [facility] [id number] [address] [place] [address] Jan, Depression, major, recurrent , moderate 296.[address] [place] [id number] [place] [address] [id number] Jan, Nausea and vomiting 787.01 ; Rib pain on right side 786.50 and Fall on or from sidewalk curb E880.1 [place] [address] [facility] [id number] [address] [place] [address] Jan, [facility] [place] [address] [place] [id number] [address] [place] [address] Jan, Major depressive disorder, r ecurrent episode, in partial or unspecified remission 296.35 and Anxiety state, unspecified 300.00 [facility] [address] [place], [place] [address] [id number] [id number] Jan, [address] [id number] [address] [place] [address] Jan, Depression, major, recurrent , moderate 296.32 [place] [id number] [address] [place] [address] Jan, Major depression, recurrent 296.30 ; No condition on Davis II V71.09 and No condition on axis III V71.09 [facility] [address] [place], [place] [address] [id number][place] [id number] Jan, Drug-induced nausea and vomiting 787.01 [place] [id number] [address] [place] [address] Jan, Depression, major, recurrent , moderate 296.32 [place] [id number] [address] [place] [address] Dec, Depression, major, recurrent , moderate 296.32 [address] [id number] [id number] Dec, Morbid obesity 278.01 ; Metabolic syndro me 277.7 ; Hyperlipemia 272.4 ; Benign essential hypertension 401.1 ; Dietary counseling V65.3 ; Exercise counseling V65.41 and Inflamed skin tag 701.[address] [id number] [address] [place] [address] Dec, Depression, major, recurrent , moderate 296.32 [place] [id number] [address] [place] [address] Dec, [facility] [place] [address] [address] Dec, Major depression, recurrent 296.30 ; Anxiety, generalized 300.02 and No condition on Davis II V71.09 [facility] [place] [address] [place] [id number] Dec, Depression, major, recurrent , moderate 296.32 [facility] [place] [address] [place] [address] Dec, Major depressive disorder, r ecurrent episode, moderate 296.32 [place] [address] [place] [address] Dec, Depression, major, recurrent , moderate 296.32 [place] [address] [address] Dec, Depression, major, recurrent , moderate 296.32 [facility] [place] [address] [place] [id number] Dec, Depression, major, recurrent , moderate 296.32 [facility] [place] [address] [place] [address] Dec, Depression, major, recurrent , moderate 296.32 [facility] [place] [address] [address] Nov, Depression, major, recurrent , moderate 296.32 [facility] [place] [address] [place] [id number] Nov, Major depression 296.20 ; So cial phobia 300.23 and No condition on Davis II V71.09 [facility] [place] [address] [place] [id number] Nov, Depression, major, recurrent , moderate 296.32 [facility] [place] [address] [place] [id number] Nov, Major depressive disorder, r ecurrent episode, moderate 296.32 and Generalized anxiety disorder 300.02 [facility] [place] [address] [id number] [address] [place] [address] 09 Nov, 2014 Depression, major, recurrent , moderate 296.32 [facility] [place] [address] [id number] [address] [place] [address] 04 Nov, 2014 Depression, major, recurrent , moderate 296.32 [facility] [place] [address] [facility] [id number] [address] [place] [address] October, Generalized anxiety disorder 300.02 ; No condition on Davis II V71.09 and Major depressive disorder, recurrent 296.30 [facility] [place] [address] [id number] [address] [place] [address] Sep, [facility] [place] [address] [id number] [address] [place] [address] Sep, [facility] [place] [address] [id number] [address] [place] [address] Aug, [facility] [place] [address] [id number] [address] [place] [address] 24 Aug, 2014 [facility] [place] [address] [id number] [address] [place] [address] Aug, [facility] [place] [address] [id number] [address] [place] [address] Aug, [facility] [place] [address] [id number] [address] [place] [address] Aug, [facility] [place] [address] [id number] [address] [place] [address] Aug, [facility] [place] [address] [id number] [address] [place] [address] Aug, [facility] [place] [address] [id number] [address] [place] [address] Aug, [facility] [place] [address] [id number] [address] [place] [address] Aug, [facility] [address] [id number] [facility] [place] [address] 13 Aug, 2014 [facility] [address] [id number] [address] [place] [address], [place] [address] 13 Aug, 2014 [facility] [address] [id number] [address] [place] [address], [place] [address] 13 Aug, 2014 [facility] [address] [id number] [address] [place] [address], [place] [address] Aug, [facility] [address] [id number] [address] [place] [address], [place] [address] Aug, [facility] [address] [id number] [address] [place] [address], [place] [address] 10 Aug, 2014 [facility] [address] [id number] [address] [place] [address], [place] [address] Aug, [facility] [address] [id number] [address] [place] [address], [place] [address] Aug, [facility] [address] [id number] [address] [place] [address], [place] [address] Aug, [facility] [address] [id number] [address] [place] [address], [place] [address] Jul, 2014 [facility] [address] [id number] [address] [place] [address], [place] [address] Jul, 2014 [facility] [address] [id number] [address] [place] [address], [place] [address] Jul, 2014 [facility] [address] [id number] [address] [place] [address], [place] [address] Jul, 2014 [facility] [address] [id number] [address] [place] [address], [place] [address] Jul, [facility] [address] [id number] [address] [place] [address], [place] [address] Jul, 2014 [facility] [address] [id number] [address] [place] [address], [place] [address] Jun, [facility] [address] [id number] [address] [place] [address], [place] [address] Jun, [facility] [address] [id number] [address] [place] [address], [place] [address] Jun, [facility] [address] [id number] [address] [place] [address], [place] [address] Jun, [facility] [address] [id number] [address] [place] [address], [place] [address] Jun, [facility] [address] [id number] [address] [place] [address], [place] [address] Jun, [facility] [address] [id number] [address] [place] [address], [place] [address] Jun, [facility] [address] [id number] [address] [place] [address], [place] [address] Jun, [facility] [address] [id number] [address] [place] [address], [place] [address] Jun, [facility] [address] [id number] [address] [place] [address], [place] [address] Jun, [facility] [address] [id number] [address] [place] [address] Jun, [facility] [address] [id number] [address] [place] [address] Jun, [facility] [address] [id number] [place] [id number] Jun, [facility] [address] [id number] [address] [place] [address] Jun, [facility] [address] [id number] [address] [place] [address] Jun, [facility] [address] [id number] [address] [place] [address] Jun, [facility] [address] [id number] [address] [place] [address], [place] [address] 08 May, 2014 [facility] [address] [id number] [address] [place] [address], [place] [address] May, [facility] [address] [id number] [address] [place] [address], [place] [address] May, [facility] [address] [id number] [address] [place] [address], [place] [address] May, [facility] [address] [id number] [address] [place] [address], [place] [address] Apr, [facility] [address] [id number] [address] [place] [address], [place] [address] Apr, [facility] [address] [id number] [address] [place] [address], [place] [address] Apr, [facility] [address] [id number] [address] [place] [address], [place] [address] Apr, [facility] [address] [id number] [address] [place] [address], [place] [address] Apr, [facility] [address] [id number] [address] [place] [address], [place] [address] Apr, [facility] [address] [id number] [address] [place] [address], [place] [address] Apr, [facility] [address] [id number] [address] [place] [address], [place] [address] Apr, [facility] [address] [id number] [address] [place] [address], [place] [address] Apr, [facility] [address] [id number] [address] [place] [address], [place] [address] Apr, [facility] [address] [id number] [address] [place] [address], [place] [address] Apr, [facility] [address] [id number] [address] [place] [address], [place] [address] Apr, [facility] [address] [id number] [address] [place] [address], [place] [address] Apr, [facility] [address] [id number] [address] [place] [address], [place] [address] Apr, [facility] [address] [id number] [address] [place] [address], [place] [address] Apr, [facility] [address] [id number] [address] [place] [address], [place] [address] Apr, [facility] [address] [id number] [address] [place] [address], [place] [address] Apr, [facility] [address] [id number] [address] [place] [address], [place] [address] Apr, [facility] [address] [id number] [address] [place] [address], [place] [address] Apr, [facility] [address] [id number] [address] [place] [address], [place] [address] Apr, [facility] [address] [id number] [address] [place] [address], [place] [address] Mar, [facility] [address] [id number] [address] [place] [address], [place] [address] Mar, [facility] [address] [id number] [address] [place] [address], [place] [address] Mar, [facility] [address] [id number] [address] [place] [address] Mar, [facility] [address] [id number] [address] [place] [address], [place] [address] Mar, [facility] [address] [id number] [address] [place] [address], [place] [address] Mar, [facility] [address] [id number] [address] [place] [address], [place] [address] Mar, [facility] [address] [id number] [address] [place] [address] [place] [address] Mar, [facility] [address] [id number] [address] [place] [address], [place] [address] Mar, [facility] [address] [id number] [address] [place] [address], [place] [address] Mar, [facility] [address] [id number] [address] [place] [address], [place] [address] Feb, [facility] [address] [id number] [address] [place] [address], [place] [address] Feb, [facility] [address] [id number] [address] [place] [address], [place] [address] Feb, [facility] [address] [id number] [address] [place] [address], [place] [address] Feb, [facility] [address] [id number] [address] [place] [address], [place] [address] Jan, [facility] [address] [id number] [address] [place] [address], [place] [address] Jan, [facility] [address] [id number] [address] [place] [address], [place] [address] Jan, [facility] [address] [id number] [address] [place] [address], [place] [address] Jan, [facility] [address] [id number] [address] [place] [address], [place] [address] Jan, [facility] [address] [id number] [address] [place] [address], [place] [address] Jan, [facility] [address] [id number] [address] [place] [address], [place] [address] Dec, [facility] [address] [id number] [address] [place] [address], [place] [address] Dec, [facility] [address] [id number] [address] [place] [address], [place] [address] Nov, [facility] [address] [id number] [facility] [place] [address] Nov, [facility] [address] [id number] [facility] [place] [address] Nov, [facility] [address] [id number] [address] [place] [address], [place] [address] Nov, [facility] [address] [id number] [address] [place] [address], [place] [address] Nov, [facility] [address] [id number] [address] [place] [address], [place] [address] Nov, [facility] [address] [id number] [address] [place] [address], [place] [address] Sep, [facility] [address] [id number] [address] [place] [address], [place] [address] Sep, [facility] [address] [id number] [address] [place] [address], [place] [address] Sep, [facility] [address] [id number] [address] [place] [address], [place] [address] Sep, [facility] [address] [id number] [address] [place] [address], [place] [address] Aug, [facility] [address] [id number] [address] [place] [address], [place] [address] Aug, [facility] [address] [id number] [address] [place] [address], [place] [address] Jul, [facility] [address] [id number] [address] [place] [address], [place] [address] Jul, [facility] [address] [id number] [address] [place] [address], [place] [address] Jun, [facility] [address] [id number] [address] [place] [address], [place] [address] Jun, [facility] [address] [id number] [address] [place] [address], [place] [address] 16 Jun, 2013 [facility] [address] [id number] [address] [place] [address], [place] [address] Jun, [facility] [address] [id number] [address] [place] [address], [place] [address] May, [facility] [address] [id number] [address] [place] [address], [place] [address] May, [facility] [address] [id number] [address] [place] [address] May, [facility] [address] [id number] [address] [place] [address], [place] [address] May, [facility] [address] [id number] [address] [place] [address], [place] [address] May, [facility] [address] [id number] [address] [place] [address], [place] [address] May, [facility] [address] [id number] [address] [place] [address], [place] [address] Apr, [facility] [address] [id number] [address] [place] [address], [place] [address] Apr, [facility] [address] [id number] [address] [place] [address], [place] [address] Apr, [facility] [address] [id number] [address] [place] [address] Apr, [facility] [address] [id number] [address] [place] [address] Mar, [facility] [address] [id number] [address] [place] [address], [place] [address] Mar, [facility] [address] [id number] [address] [place] [address], [place] [address] Mar, [facility] [address] [id number] [address] [place] [address] Mar, [facility] [address] [id number] [address] [place] [address], [place] [address] Feb, [facility] [address] [id number] [place] [id number] Jan, [facility] [address] [id number] [address] [place] [address], [place] [address] Jan, [facility] [address] [id number] [address] [place] [address], [place] [address] Dec, [facility] [address] [id number] [address] [place] [address], [place] [address] Dec, [facility] [address] [id number] [address] [place] [address], [place] [address] Dec, [facility] [address] [id number] [place] [id number] Dec, [facility] [address] [id number] [address] [place] [address], [place] [address] Nov, [facility] [address] [id number] [address] [place] [address] Nov, [facility] [address] [id number] [address] [place] [address], [place] [address] Nov, [facility] [address] [id number] [address] [place] [address], [place] [address] Nov, [facility] [address] [id number] [address] [place] [address] Nov, [facility] [address] [id number] [address] [place] [phone] October, [facility] [address] [id number] [address] [place] [address], [place] [address] October, [facility] [address] [id number] [address] [place] [address], [place] [address] Aug, [facility] [address] [id number] [address] [place] [address], [place] [address] 13 Nov, 2011 IMMUNIZATIONS No Known Immunizations SOCIAL HISTORY Never Assessed REASON FOR VISIT Requests return call PLAN OF CARE VITAL SIGNS MEDICATIONS Unknown [...] Hospitalization History gastric sleeve Hospitalization History [facility] Trouble with left shoulder blade 08/2017
--- OUTSIDE RECORDS SUMMARY | 2019-11-29 09:23 | XMS REPORT ---
Author Author Curt CASTRO Organization [facility] Address [address] [place] [address] Care Team Providers Care Laminating Machine Offbearer Name Role Phone JADEN CASTROA Unavailable PROBLEMS Type Condition ICD9-CM Code DRM55-EL Code Onset Dates Condition S tatus SNOMED Code Problem Metabolic syndrome E88.81 Active 2 61157847 Problem Severe episode of recurrent major depressive disorder, without psychotic features F33.2 Active 57384695 Problem Anxiety F41.9 Active 23222583 Problem Depressive disorder, not elsewhere classified F32. 9 Active 79690512 Problem Sciatica, right side M54.31 Active [id number] Problem Mixed obsessional thoughts and acts F42.2 Active 90858227 Problem Vitamin D deficiency E55.9 Active 06803003 Problem DANIELA (generalized anxiety disorder) F41.1 Active 46836731 Problem BMI 45.0-49.9, adult Z68.42 Active 883224124 Problem Hyperlipemia E78.5 Active 1460001 4 Problem Major depression F32.9 Active 370 458317 Problem Insomnia G47.00 Active 224977840 Problem Renal insufficiency N28.9 Active 186119894 Problem Edema R60.9 Active 359792775 Problem Morbid obesity E66.01 Active 57371 6002 Problem Callus of foot L84 Active 45036 1005 Problem Benign essential hypertension I10 Active 6131210 Problem Recurrent major depressive disorder, in partial remission F33.41 Active 35140427 ALLERGIES Substance Reaction Event Type Date Status [place] Elm throat swells Drug Allergy Jan, Active Peanut (Diagnostic) throat swells Drug Allergy Jan, Active Egg White (Diagnostic) throat swells Drug Allergy Jan, Acti ve alternaria tenuis throat swells Non Drug Allergy Jan, Activ e Cows Milk throat swells Non Drug Allergy Jan, Active Wheat throat swells Non Drug Allergy Jan, Active Ragweed throat swells Non Drug Allergy Jan, Active ENCOUNTERS Encounter Location Date Diagnosis [facility] [address] [facility] [id number] [address] [place] [address] Mar, [facility] [address] [id number], [place] [id number] Mar, [facility] [address] [facility] [id number] [address] [place] [address] Jan, Recurrent major depressive d isorder, in partial remission F33.41 ; Mixed obsessional thoughts and acts F42.2 and BMI 45.0-49.9, adult Z68.42 [facility] [address] [id number], [place] [id number] Jan, [facility] [address] [id number], [place] [id number] Jan, Benign essential hypertension I10 ; BMI 45.0-49.9, adult Z68.42 ; Metabolic syndrome E88.81 and Allergic rhinitis, unspecified seasonality, unspecified trigger J30.9 [facility] [address] [facility] [id number] [address] [place] [phone] Dec, DANIELA (generalized anxiety dis order) F41.1 and Depressive disorder, not elsewhere classified F32.9 [facility] [address] [id number], [place] [id number] Dec, Recurrent major depressive disorder, in partial remission F33.41 [facility] [address] [id number], [place] [id number] Dec, [facility] [address] [id number], [place] [id number] Nov, [facility] [address] [id number], [place] [id number] Nov, Recurrent major depressive disorder, in partial remission F33.41 [facility] [address] [facility] [id number] [address] [place] [address] Nov, Recurrent major depressive d isorder, in partial remission F33.41 ; Mixed obsessional thoughts and acts F42.2 ; DANIELA (generalized anxiety disorder) F41.1 and BMI 45.0-49.9, adult Z68.42 [facility] [address] [id number] [place] [id number] Nov, [facility] [address] [id number], [place] [id number] Nov, Other conjunctivitis of both eyes H10.89 and Sciatica, right side M54.31 [facility] [address] [id number], [place] [id number] Nov, [facility] [address] [id number], [place] [id number] Nov, [facility] [address] [id number], [place] [id number] October, [facility] [address] [id number], [place] [id number] October, [facility] [address] [facility] [id number] [address] [place] [address] October, BMI 45.0-49.9, adult Z68.42 ; Mixed obsessional thoughts and acts F42.2 ; Recurrent major depressive disorder, in partial remission F33.41 and DANIELA (generalized anxiety disorder) F41.1 [facility] [address] [id number], [place] [id number] October, Benign essential hypertension I10 ; Morb id obesity E66.01 and BMI 45.0-49.9, adult Z68.42 [facility] [address] [id number], [place] [id number] Sep, [facility] [address] [id number], [place] [id number] Sep, [facility] [address] [id number], [place] [id number] Sep, [facility] [address] [id number], [place] [id number] Sep, Hospital discharge follow-up Z09 ; Aller gic rhinitis, unspecified seasonality, unspecified trigger J30.9 and Shortness of breath R06.[id number] [place] [address] [id number] Sep, Recurrent major depressive disorder, in partial remission F33.[id number] [place] [address] [id number] Aug, Irritable mood R45.4 [place] [address] [facility] [id number] [address] [place] [address] Aug, [address] [id number] [place] [address] [id number] 22 Jul, 2017 Benign essential hypertension I10 ; Robert a R60.9 and Impacted cerumen of left ear H61.22 [place] [address] [place] [id number] [address] [place] [address] 14 Jul, 2017 Major depression F32.9 ; Rec urrent major depressive disorder, in partial remission F33.41 and Anxiety F41.9 [place] [address] [place] [id number] [address] [place] [address] Jun, Major depression F32.9 ; Rec urrent major depressive disorder, in partial remission F33.41 and Anxiety F41.[address] [id number], [place] [id number] Jun, Major depression F32.9 ; Morbid obesity E66.01 ; Irritable mood R45.4 ; Hand weakness R29.898 and Vitamin D deficiency E55.[address] [id number], [place] [id number] Jun, [id number] [place] [address] [id number] May, Major depression F32.9 [place] [address] [place] [id number] [address] [place] [address] May, Major depression F32.9 [facility] [address] [id number], [place] [id number] May, BMI 50.0-59.9, adult Z68.43 ; Major depr ession F32.9 ; Anxiety F41.9 ; Hypertrophic toenail L60.2 and Pain of left great toe M79.675 [facility] [address] [id number], [place] [id number] May, Recurrent major depressive disorder, in partial remission F33.41 [facility] [address] [facility] [id number] [address] [place] [address] Apr, [facility] [id number] [place] [address] [id number] Apr, [facility] [address] [facility] [id number] [address] [place] [address] Apr, Major depression F32.9 [facility] [id number] [place] [address] [id number] Apr, Severe episode of recurrent major depres sive disorder, without psychotic features F33.2 ; Anxiety F41.9 and Insomnia G47.00 [facility] [address] [id number], [place] [id number] Apr, [facility] [address] [facility] [id number] [address] [place] [address] Apr, [facility] [id number] [place] [address] [id number] Apr, [facility] [address] [id number], [place] [id number] Mar, [facility] [id number] [place] [address] [id number] Mar, Allergic conjunctivitis of both eyes H10 .13 [facility] [address] [facility] [id number] [address] [place] [address] Mar, Major depression F32.[address] [facility] [address] [id number], [place] [id number] Mar, Metabolic syndrome E88.81 ; History of g astric bypass Z98.890 ; Benign essential hypertension I10 and Allergic conjunctivitis of both eyes H10.13 [facility] [address] [facility] [id number] [address] [place] [phone] 17 Mar, 2017 Major depression F32.[address] [id number] [place] [address] [id number] Feb, [place] [address] [facility] [id number] [address] [place] [address] Feb, Major depression F32.[address] [id number] [place] [address] [id number] Feb, Subacute maxillary sinusitis J01.00 and Bronchitis J40 [place] [address] [place] [address] Feb, Major depressive disorder, r ecurrent, moderate F33.[id number] [place] [address] [id number] Jan, [address] [id number] [place] [address] [id number] Jan, Acute non-recurrent maxillary sinusitis J01.00 and Skin tag L91.[address] [id number], [place] [id number] Jan, Cough R05 and Sinus congestion R09.[address] [id number], [place] [id number] Jan, [address] [id number] [place] [address] [id number] Jan, Benign essential hypertension I10 ; Hist ory of gastric bypass Z98.890 and Nausea and vomiting in adult R11.2 [place] [address] [facility] [id number] [address] [place] [address] Jan, Major depressive disorder, r ecurrent, moderate F33.1 [place] [id number] [place] [id number] [address] [place] [address] Dec, Insomnia G47.00 ; Recurrent major depressive disorder, in partial remission F33.41 and Morbid obesity E66.01 [facility] [place] [address] [facility] [address] [id number], [place] [id number] Dec, [facility] [address] [place] [address] AVE [id number], [place] [id number] Dec, Chronic bacterial conjunctivitis of left eye H10.[address]00565100[address], [place] [id number] Nov, [address] [id number], [place] [id number] Nov, Dental examination Z01.[address]00565100[address], [place] [id number] Nov, Benign essential hypertension I10 ; Hist ory of gastric bypass Z98.890 and Nausea and vomiting in adult R11.2 [place] [address] [place] [address] Nov, Major depressive disorder, r ecurrent, moderate F33.1 ; Generalized anxiety disorder F41.1 and Insomnia due to other mental disorder F51.05 [place] [address] [place] [address] Nov, Recurrent major depressive d isorder, in partial remission F33.41 ; Insomnia G47.00 and Morbid obesity E66.01 [facility] [address] [id number] [place] [id number] October, Abscess of left arm L02.414 [facility] [address] [place] [id number] [address] [place] [address] October, Morbid obesity E66.01 ; Lida r depression F32.9 and Recurrent major depressive disorder, in partial remission F33.41 [facility] [address] [id number], [place] [id number] Sep, Benign essential hypertension I10 ; Morb id obesity E66.01 ; S/P gastric bypass Z98.84 ; Abscess L02.91 and Chronic bacterial conjunctivitis of left eye H10.402 [facility] [address] [id number], [place] [id number] Sep, Dental examination Z01.20 [place] [address] [place] [id number] [address] [place] [address] Sep, Morbid obesity E66.01 ; Lida r depression F32.9 and Recurrent major depressive disorder, in partial remission F33.41 [place] [address] [address] Jul, [place] [address] [address] Jul, Major depressive disorder, r ecurrent, moderate F33.1 [place] [address] [place] [id number] [address] [place] [address] Jul, Major depressive disorder, r ecurrent, moderate F33.1 and Generalized anxiety disorder F41.[address] [place] [address] [id number], [place] [id number] Jul, Cough R05 [place] [address] [place] [id number] [address] [place] [address] Jul, Morbid obesity E66.01 ; Lida r depression F32.9 and Recurrent major depressive disorder, in partial remission F33.41 [facility] [address] [id number], [place] [id number] Jul, [facility] [address] [id number], [place] [id number] Jul, [facility] [address] [id number], [place] [id number] Jul, Gastroenteritis K52.9 and Cough R05 [facility] [address] [id number], [place] [id number] Jun, Acute bacterial conjunctivitis of left e ye H10.32 [place] [address] [place] [id number] [address] [place] [address] Jun, [place] [address] [address] Jun, Recurrent major depressive d isorder, in partial remission F33.41 [place] [address] [address] May, Major depression F32.9 and M orbid obesity E66.01 [place] [address] [address] May, [address] [id number] [place] [address] [id number] May, Thrush B37.0 [place] [address] [address] Apr, Major depressive disorder, r ecurrent, moderate F33.1 [place] [address] [address] Apr, Insomnia G47.00 ; Major depr ession F32.9 and Recurrent major depressive disorder, in partial remission F33.41 [place] [address] [place] [id number] [address] [place] [address] Apr, [place] [address] [address] Apr, Major depression F32.9 and R ecurrent major depressive disorder, in partial remission F33.41 [facility] [address] [facility] [id number] [place] [address] [id number] Mar, Benign essential hypertension I10 ; Morb id obesity E66.01 ; Impacted cerumen of both ears H61.23 ; Laceration of finger of right hand, initial encounter S61.219A and Encounter for immunization Z23 [place] [address] [facility] [id number] [place] [address] Mar, [facility] [address] [facility] [id number] [address] [place] [address] Mar, [facility] [address] [facility] [id number] [address] [place] [address] Mar, [facility] [address] [id number], [place] [id number] Feb, Nausea R11.0 ; Blood in the stool K92.1 and Benign essential hypertension I10 [facility] [address] [facility] [id number] [address] [place] [address] Feb, Major depression F32.9 and R ecurrent major depressive disorder, in partial remission F33.41 [facility] [address] [id number], [place] [id number] Feb, [facility] [address] [id number], [place] [id number] Feb, Recurrent major depressive disorder, in partial remission F33.41 [facility] [address] [id number], [place] [id number] Jan, [facility] [address] [id number], [place] [id number] Jan, Benign essential hypertension I10 ; Robert a R60.9 and Hyperlipidemia, unspecified hyperlipidemia type E78.5 [facility] [address] [id number], [place] [id number] Jan, Recurrent major depressive disorder, in partial remission F33.41 [facility] [place] [address] [id number] Kiesha ESCOBEDO S [id number] Jan, [facility] [address] [id number], [place] [id number] Jan, [facility] [address] [id number], [place] [id number] Jan, [facility] [address] [facility] [id number] [address] [place] [address] Jan, [facility] [address] [facility] [id number] [address] [place] [address] Dec, [facility] [address] [facility] [id number] [address] [place] [address] Nov, [facility] [address] [facility] [id number] [address] [place] [address] Nov, Major depression F32.9 [facility] [address] [facility] [id number] [address] [place] [address] Nov, [facility] [address] [place] [id number] [address] [place] [address] Nov, [facility] [address] [facility] [id number] [address] [place] [address] Nov, Major depressive disorder, r ecurrent episode, mild F33.0 and Anxiety F41.[address] [place] [id number] [place] [address] [id number] Nov, [address] [id number] [place] [address] [id number] October, Left elbow pain M25.522 and Other season al allergic rhinitis J30.[address] [id number] [place] [address] [id number] October, [facility] [address] [facility] [id number] [address] [place] [address] October, Major depressive disorder, r ecurrent, moderate F33.1 [facility] [address] [facility] [id number] [address] [place] [address] October, Major depression F32.9 [facility] [address] [facility] [id number] [address] [place] [address] Sep, [place] or callus L84 and Onych omycosis B35.1 [facility] [address] [facility] [id number] [address] [place] [address] Sep, Major depressive disorder, r ecurrent, moderate F33.1 [facility] [address] [facility] [id number] [address] [place] [address] Sep, Major depression F32.9 [facility] [address] [facility] [id number] [address] [place] [address] Sep, Moderate episode of recurren t major depressive disorder F33.1 [facility] [id number] [place] [address] [id number] Sep, Muscle strain T14.8 [facility] [address] [facility] [id number] [address] [place] [address] Aug, Major depression F32.9 [facility] [address] [facility] [id number] [address] [place] [address] Aug, Major depression F32.9 [facility] [address] [facility] [id number] [address] [place] [address] Jul, Morbid obesity E66.01 and Ma cora depression F32.9 [facility] [address] [facility] [id number] [address] [place] [address] Jul, Depression, major, recurrent , moderate F33.1 [facility] [id number] [place] [address] [id number] Jul, [facility] [address] [facility] [id number] [address] [place] [address] Jul, [facility] [address] [facility] [id number] [address] [place] [address] Jul, Major depression F32.9 and M orbid obesity E66.01 [facility] [id number] [place] [address] [id number] Jul, Type II diabetes mellitus E11.9 ; Callus of foot L84 ; Benign essential hypertension I10 and Renal insufficiency N28.9 [facility] [address] [facility] [id number] [address] [place] [address] 09 Jul, 2015 Depression, major, recurrent , moderate F33.1 [facility] [address] [facility] [id number] [address] [place] [address] 05 Jul, 2015 Major depression F32.9 [facility] [address] [facility] [id number] [address] [place] [address] Jul, [facility] [address] [facility] [id number] [address] [place] [address] Jun, Major depression F32.9 [facility] [address] [facility] [id number] [address] [place] [address] Jun, Major depressive disorder, r ecurrent, moderate F33.1 [place] [address] [facility] [id number] [address] [place] [address] Jun, [facility] [address] [facility] [id number] [address] [place] [address] Jun, Major depressive disorder, r ecurrent, moderate F33.1 and Major depression F32.9 [facility] [id number] [place] [address] [id number] Jun, Type II diabetes mellitus E11.9 [place] [address] [facility] [id number] [address] [place] [address] Jun, Depression, major, recurrent , moderate F33.1 [place] [address] [facility] [id number] [address] [place] [address] May, Major depressive disorder, r ecurrent, moderate F33.1 [place] [id number] [facility] [id number] [address] [place] [address] May, [facility] [id number] [place] [id number] May, Edema R60.9 [facility] [address] [facility] [id number] [address] [place] [id number] May, Insomnia G47.00 and Major de pression F32.9 [place] [id number] [facility] [address] [id number] [id number] May, 2015 Morbid obesity E66.01 ; Edema R60.9 ; Sh ortness of breath R06.02 ; Benign essential hypertension I10 and Renal insufficiency N28.[id number] [place] [id number] May, 2015 Hyperlipemia 272.4 and Renal insufficien cy N28.9 [place] [address] [facility] [id number] [address] [place] [phone] Apr, Major depression F32.9 [place] [address] [facility] [id number] [address] [place] [phone] Apr, [place] [address] [facility] [id number] [address] [place] [phone] Apr, Major depressive disorder, r ecurrent, moderate F33.[address] [id number] [id number] Apr, Type II diabetes mellitus E11.9 ; Benign essential hypertension I10 ; Edema R60.9 and Renal insufficiency N28.9 [place] [address] [facility] [id number] [address] [place] [phone] Mar, Major depressive disorder, r ecurrent, moderate F33.1 [place] [address] [facility] [id number] [address] [place] [phone] Mar, [place] [address] [facility] [id number] [address] [place] [phone] Mar, Major depression F32.[id number] [place] [id number] Mar, Morbid obesity E66.01 ; Benign essential hypertension I10 and Type II diabetes mellitus E11.9 [place] [address] [facility] [id number] [address] [place] [address] Feb, Major depressive disorder, r ecurrent, moderate F33.1 [facility] [address] [facility] [id number] [address] [place] [address] Feb, Major depressive disorder, r ecurrent episode, in partial or unspecified remission 296.35 ; Anxiety state, unspecified 300.00 and Morbid obesity 278.01 [place] [address] [facility] [id number] [address] [place] [address] Feb, [place] [address] [id number] [id number] Feb, Vomiting 787.03 and Viral syndrome 079.9 9 [place] [address] [place] [id number] [address] [place] [address] 15 Feb, 2015 Major depression, recurrent 296.30 ; Generalized anxiety disorder 300.02 and No condition on [place] II V71.[address] [id number] [id number] Feb, Skin tag 701.9 [place] [address] [place] [id number] [address] [place] [address] Feb, [place] [id number] [address] [place] [address] Jan, Depression, major, recurrent , moderate 296.[address] [id number] [id number] Jan, Nausea and vomiting 787.01 ; Rib pain on right side 786.50 and Fall on or from sidewalk curb E880.1 [place] [address] [facility] [id number] [address] [place] [address] Jan, [place] [id number] [address] [place] [address] Jan, Major depressive disorder, r ecurrent episode, in partial or unspecified remission 296.35 and Anxiety state, unspecified 300.[address] [id number] [id number] Jan, [place] [id number] [address] [place] [address] Jan, Depression, major, recurrent , moderate 296.32 [place] [id number] [address] [place] [address] Jan, Major depression, recurrent 296.30 ; No condition on Whiting II V71.09 and No condition on axis III V71.[address] [id number] [id number] Jan, Drug-induced nausea and vomiting 787.01 [place] [id number] [address] [place] [address] Jan, Depression, major, recurrent , moderate 296.32 [place] [id number] [address] [place] [address] Dec, Depression, major, recurrent , moderate 296.32 [facility] [address] [facility] [address] [id number][place] [id number] Dec, Morbid obesity 278.01 ; Metabolic syndro me 277.7 ; Hyperlipemia 272.4 ; Benign essential hypertension 401.1 ; Dietary counseling V65.3 ; Exercise counseling V65.41 and Inflamed skin tag 701.9 [place] [id number] [address] [place] [address] Dec, Depression, major, recurrent , moderate 296.32 [place] [id number] [address] [place] [address] Dec, [place] [id number] [address] [place] [address] Dec, Major depression, recurrent 296.30 ; Anxiety, generalized 300.02 and No condition on [place] II V71.09 [place] [id number] [address] [place] [address] Dec, Depression, major, recurrent , moderate 296.32 [place] [id number] [address] [place] [address] Dec, Major depressive disorder, r ecurrent episode, moderate 296.32 [place] [address] [place] [id number] [address] [place] [address] Dec, Depression, major, recurrent , moderate 296.32 [place] [address] [place] [id number] [address] [place] [address] Dec, Depression, major, recurrent , moderate 296.32 [place] [address] [address] Dec, Depression, major, recurrent , moderate 296.32 [place] [address] [address] Dec, Depression, major, recurrent , moderate 296.32 [place] [address] [address] Nov, Depression, major, recurrent , moderate 296.32 [place] [address] [address] Nov, Major depression 296.20 ; So cial phobia 300.23 and No condition on [place] II V71.09 [place] [address] [address] Nov, Depression, major, recurrent , moderate 296.32 [place] [address] [address] Nov, Major depressive disorder, r ecurrent episode, moderate 296.32 and Generalized anxiety disorder 300.02 [place] [address] [place] [id number] [address] [place] [address] Nov, Depression, major, recurrent , moderate 296.32 [place] [address] [address] Nov, Depression, major, recurrent , moderate 296.32 [place] [address] [place] [id number] [address] [place] [address] October, Generalized anxiety disorder 300.02 ; No condition on [place] II V71.09 and Major depressive disorder, recurrent 296.30 [facility] [address] [id number] [address] [place] [address], [place] [address] 14 Sep, 2014 [facility] [address] [id number] [address] [place] [address] 13 Sep, 2014 [facility] [address] [id number] [address] [place] [address] 24 Aug, 2014 [facility] [address] [id number] [address] [place] [address] 24 Aug, 2014 [facility] [address] [id number] [address] [place] [address] 23 Aug, 2014 [facility] [address] [id number] [address] [place] [address] 23 Aug, 2014 [facility] [address] [id number] [address] [place] [address] 20 Aug, 2014 [facility] [address] [id number] [address] [place] [address] 20 Aug, 2014 [facility] [address] [id number] [address] [place] [address] 20 Aug, 2014 [facility] [address] [id number] [address] [place] [id number] 20 Aug, 2014 [facility] [address] [id number] [address] [place] [id number] 13 Aug, 2014 [facility] [address] [id number] [address] [place] [address] 13 Aug, 2014 [facility] [address] [id number] [address] [place] [id number] 13 Aug, 2014 [facility] [address] [id number] [address] [place] [address] 13 Aug, 2014 [facility] [address] [id number] [address] [place] [address] 12 Aug, 2014 [facility] [address] [id number] [address] [place] [address], [place] [address] Aug, [facility] [address] [id number] [address] [place] [address], [place] [address] Aug, [facility] [address] [id number] [address] [place] [address], [place] [address] Aug, [facility] [address] [id number] [address] [place] [address], [place] [address] Aug, [facility] [address] [id number] [address] [place] [address], [place] [address] Aug, [facility] [address] [id number] [address] [place] [address], [place] [address] Jul, [facility] [address] [id number] [address] [place] [address], [place] [address] Jul, [facility] [address] [id number] [address] [place] [address], [place] [address] Jul, [facility] [address] [id number] [address] [place] [address], [place] [address] Jul, [facility] [address] [id number] [address] [place] [address], [place] [address] Jul, [facility] [address] [id number] [address] [place] [address], [place] [address] Jul, [facility] [address] [id number] [address] [place] [address], [place] [address] Jun, [facility] [address] [id number] [address] [place] [address], [place] [address] Jun, [facility] [address] [id number] [address] [place] [address], [place] [address] Jun, [facility] [address] [id number] [address] [place] [address], [place] [address] Jun, [facility] [address] [id number] [address] [place] [address] Jun, [facility] [address] [id number] [address] [place] [address], [place] [address] Jun, [facility] [address] [id number] [address] [place] [address], [place] [address] Jun, [facility] [address] [id number] [address] [place] [address], [place] [address] Jun, [facility] [address] [id number] [address] [place] [address], [place] [address] Jun, [facility] [address] [id number] [address] [place] [address], [place] [address] Jun, [facility] [address] [id number] [address] [place] [address], [place] [address] Jun, [facility] [address] [id number] [address] [place] [address] Jun, [facility] [address] [facility] [address] [id number] [place] [id number] Jun, [facility] [address] [id number] [address] [place] [address], [place] [address] Jun, [facility] [address] [id number] [address] [place] [address], [place] [address] Jun, [facility] [address] [id number] [address] [place] [address], [place] [address] Jun, [facility] [address] [id number] [address] [place] [address] May, [facility] [address] [id number] [address] [place] [address], [place] [address] May, [facility] [address] [id number] [address] [place] [address], [place] [address] May, [facility] [address] [id number] [address] [place] [address], [place] [address] May, [facility] [address] [id number] [address] [place] [address], [place] [address] Apr, [facility] [address] [id number] [address] [place] [address], [place] [address] Apr, [facility] [address] [id number] [address] [place] [address], [place] [address] Apr, [facility] [address] [id number] [address] [place] [address], [place] [address] Apr, [facility] [address] [id number] [address] [place] [address], [place] [address] Apr, [facility] [address] [id number] [address] [place] [address], [place] [address] Apr, [facility] [address] [id number] [address] [place] [address], [place] [address] Apr, [facility] [address] [id number] [address] [place] [address], [place] [address] Apr, [facility] [address] [id number] [address] [place] [address], [place] [address] Apr, [facility] [address] [id number] [address] [place] [address], [place] [address] Apr, [facility] [address] [id number] [address] [place] [address], [place] [address] Apr, [facility] [address] [id number] [address] [place] [address], [place] [address] Apr, [facility] [address] [id number] [address] [place] [address], [place] [address] Apr, [facility] [address] [id number] [address] [place] [address], [place] [address] Apr, [facility] [address] [id number] [address] [place] [address], [place] [address] Apr, [facility] [address] [id number] [address] [place] [address], [place] [address] Apr, [facility] [address] [id number] [address] [place] [address], [place] [address] Apr, [facility] [address] [id number] [address] [place] [address], [place] [address] Apr, [facility] [address] [id number] [address] [place] [address], [place] [address] Apr, [facility] [address] [id number] [address] [place] [address], [place] [address] Apr, [facility] [address] [id number] [address] [place] [address], [place] [address] Mar, [facility] [address] [id number] [address] [place] [address], [place] [address] Mar, [facility] [address] [id number] [address] [place] [address], [place] [address] Mar, [facility] [address] [id number] [address] [place] [address] Mar, [facility] [address] [id number] [address] [place] [address], [place] [address] Mar, [facility] [address] [id number] [address] [place] [address] Mar, [facility] [address] [id number] [address] [place] [address] Mar, [facility] [address] [id number] [address] [place] [address] Mar, [facility] [address] [id number] [address] [place] [address], [place] [address] Mar, [facility] [address] [id number] [address] [place] [address], [place] [address] Mar, [facility] [address] [id number] [address] [place] [address] Feb, [facility] [address] [id number] [address] [place] [address] Feb, [facility] [address] [id number] [facility] [place] [address] Feb, [facility] [address] [id number] [address] [place] [address], [place] [address] Feb, [facility] [address] [id number] [address] [place] [address], [place] [address] Jan, [facility] [address] [id number] [address] [place] [address], [place] [address] Jan, [facility] [address] [id number] [address] [place] [address], [place] [address] Jan, [facility] [address] [id number] [address] [place] [address], [place] [address] Jan, [facility] [address] [id number] [address] [place] [address], [place] [address] Jan, [facility] [address] [id number] [address] [place] [address], [place] [address] Jan, [facility] [address] [id number] [address] [place] [address], [place] [address] Dec, [facility] [address] [id number] [address] [place] [address], [place] [address] Dec, [facility] [address] [id number] [address] [place] [address], [place] [address] Nov, [facility] [address] [id number] [address] [place] [address], [place] [address] Nov, [facility] [address] [id number] [address] [place] [address], [place] [address] Nov, [facility] [address] [id number] [address] [place] [address], [place] [address] Nov, [facility] [address] [id number] [address] [place] [address], [place] [address] Nov, [facility] [address] [id number] [address] [place] [address], [place] [address] Nov, [facility] [address] [id number] [address] [place] [address], [place] [address] Sep, [facility] [address] [id number] [address] [place] [address], [place] [address] Sep, [facility] [address] [id number] [address] [place] [address], [place] [address] Sep, [facility] [address] [id number] [address] [place] [address], [place] [address] Sep, [facility] [address] [id number] [address] [place] [address], [place] [address] Aug, [facility] [address] [id number] [address] [place] [address], [place] [address] Aug, [facility] [address] [id number] [address] [place] [address], [place] [address] Jul, [facility] [address] [id number] [address] [place] [address], [place] [address] Jul, [facility] [address] [id number] [address] [place] [address], [place] [address] Jun, [facility] [address] [id number] [address] [place] [address], [place] [address] Jun, [facility] [address] [id number] [address] [place] [address], [place] [address] Jun, [facility] [address] [id number] [address] [place] [address], [place] [address] Jun, [facility] [address] [id number] [address] [place] [address], [place] [address] May, [facility] [address] [id number] [address] [place] [address], [place] [address] May, [facility] [address] [id number] [address] [place] [address], [place] [address] May, [facility] [address] [id number] [address] [place] [address], [place] [address] May, [facility] [address] [id number] [address] [place] [address], [place] [address] May, [facility] [address] [id number] [address] [place] [address], [place] [address] May, [facility] [address] [id number] [address] [place] [address], [place] [address] Apr, [facility] [address] [id number] [address] [place] [address], [place] [address] Apr, [facility] [address] [id number] [address] [place] [address] Apr, [facility] [address] [id number] [address] [place] [address], [place] [address] Apr, [facility] [address] [id number] [address] [place] [address], [place] [address] Mar, [facility] [address] [id number] [address] [place] [address], [place] [address] Mar, [facility] [address] [id number] [address] [place] [address] Mar, [facility] [address] [id number] [address] [place] [address] Mar, [facility] [address] [id number] [address] [place] [address] Feb, [facility] [address] [id number] [place] [id number] Jan, [facility] [address] [id number] [address] [place] [address] Jan, [facility] [address] [id number] [address] [place] [address], [place] [address] Dec, [facility] [address] [id number] [address] [place] [id number] 15 Dec, 2012 [facility] [address] [id number] [address] [place] [id number] 10 Dec, 2012 [facility] [address] [id number] [id number] 08 Dec, 2012 [facility] [address] [id number] [address] [place] [id number] 17 Nov, 2012 [facility] [address] [id number] [address] [place] [id number] 14 Nov, 2012 [facility] [address] [id number] [address] [place] [address] Nov, [facility] [address] [id number] [address] [place] [phone] Nov, [facility] [address] [id number] [address] [place] [phone] Nov, [facility] [address] [id number] [address] [place] [phone] October, [facility] [address] [id number] [address] [place] [phone] October, [facility] [address] [id number] [address] [place] [phone] Aug, [facility] [address] [facility] [id number] [address] [place] [phone] Nov, IMMUNIZATIONS No Known Immunizations SOCIAL HISTORY Never Assessed REASON FOR VISIT f/u [facility] PLAN OF CARE Activity Details Follow Up 6 Weeks Reason: VITAL SIGNS Height 71.5 in 2018-02-06 Weight 355.7 lbs 2018-02-06 Heart Rate 64 bpm 2018-02-06 Respiratory Rate 20 2018-02-06 BMI 48.91 kg/m2 2018-02-06 Blood pressure systolic 124 mmHg 2018-02-06 Blood pressure diastolic 82 mmHg 2018-02-06 MEDICATIONS Medication Instructions Dosage Frequency Start Date End Date Duration S tatus Centrum - Active Vitamin D-3 1000 UNIT Orally Once a day 2 capsule 24h Active Lamictal 25 MG Orally Once a day 1 tablet 24h 11 Jun, 2017 Active Viibryd 40 mg Orally Once a day 1 tablet with food 24h May, Active Flonase 50 mcg/act nasally once per day 1 spray (50 mcg) in each nostril by intranasal route 2 times per day Nov, Active Lasix 20 mg Orally Once a day as needed for swelling 1 tablet Active Lisinopril 40 mg Orally Once a day 1 tablet Once a day Orally 24h 90 days Active Montelukast Sodium 10 MG TAKE 1 TABLET BY MOUTH ONCE DAILY 90 Active Flovent HFA 110 mcg/act inhalation once per day 1-3 Puffs 1 time pe r day October, 0 Active Ketoconazole 2 % Externally Once a day 1 application to affected area 24 h Active Omeprazole 40 mg Orally Once a day 1 tablet 24h 45 d ays Active BusPIRone HCl 15 mg Orally three times a day for anxiety 1 tablet Apr, Active Zofran 8 MG Orally Once a day 1 tablet 24h A ctive Trazodone HCl 50 mg Orally Once a day- bedtime 1 tablet Nov, Active Cetirizine HCl 10 mg Orally Once a day 1 tablet 24h 90 Active Atenolol 100 mg Orally Once a day 1 tablet Once a day Orally 24h 90 days Active RESULTS No Results PROCEDURES No [...] 03/2016 Hospitalization History gastric sleeve Hospitalization History [facility] Trouble with left shoulder blade 08/2017
[2019-11-29] MEDS: PHENYLEPHRINE 10% OPHTH (NEO-SYN) 5 ML BTL OU SCH ×3 (09:24→09:34)
[2019-11-29] MEDS: CYCLOPENTOLATE 1% (CYCLOGYL) 2 ML DROPS OP SCH ×3 (09:24→09:34)
--- OUTSIDE RECORDS SUMMARY | 2019-11-29 09:24 | XMS REPORT ---
Author Author Curt DIAZ [facility] Address [address] [place] [address] Care Team Providers Care [employer] Name Role Phone JOE CHRIS Unavailable PROBLEMS Type Condition ICD9-CM Code VOD23-LE Code Onset Dates Condition S tatus SNOMED Code Problem Metabolic syndrome E88.81 Active 2 80216636 Problem Severe episode of recurrent major depressive disorder, without psychotic features F33.2 Active 31738656 Problem Anxiety F41.9 Active 85871061 Problem Depressive disorder, not elsewhere classified F32. 9 Active 62891053 Problem Sciatica, right side M54.31 Active [id number] Problem Mixed obsessional thoughts and acts F42.2 Active 14135346 Problem Vitamin D deficiency E55.9 Active 98845175 Problem DANIELA (generalized anxiety disorder) F41.1 Active 67535293 Problem BMI 45.0-49.9, adult Z68.42 Active 515408255 Problem Hyperlipemia E78.5 Active 6429849 4 Problem Major depression F32.9 Active 370 578859 Problem Insomnia G47.00 Active 449139215 Problem Renal insufficiency N28.9 Active 658974723 Problem Edema R60.9 Active 332936812 Problem Morbid obesity E66.01 Active 32745 6002 Problem Callus of foot L84 Active 84499 1005 Problem Benign essential hypertension I10 Active 1946382 Problem Recurrent major depressive disorder, in partial remission F33.41 Active 85521202 ALLERGIES No Information ENCOUNTERS Encounter Location Date Diagnosis [facility], [place] [address] [facility] [id number] [address] [place] [phone] Mar, [facility] [place] [address] [facility] [id number] [address] [place] [phone] Jan, Recurrent major depressive d isorder, in partial remission F33.41 ; Mixed obsessional thoughts and acts F42.2 and BMI 45.0-49.9, adult Z68.42 [facility] [address] [id number], [place] [id number] Jan, [facility] [address] [id number], [place] [id number] Jan, Benign essential hypertension I10 ; BMI 45.0-49.9, adult Z68.42 ; Metabolic syndrome E88.81 and Allergic rhinitis, unspecified seasonality, unspecified trigger J30.9 [facility] [place] [address] [place] [phone] Dec, DANIELA (generalized anxiety dis order) F41.1 and Depressive disorder, not elsewhere classified F32.9 [facility] [address] [id number], [place] [id number] Dec, Recurrent major depressive disorder, in partial remission F33.41 [facility] [address] [id number], [place] [id number] Dec, [facility] [address] [id number], [place] [id number] Nov, [facility] [id number] [place] [address] [id number] Nov, Recurrent major depressive disorder, in partial remission F33.41 [facility] [place] [address] [facility] [id number] [address] [place] [id number] Nov, Recurrent major depressive d isorder, in partial remission F33.41 ; Mixed obsessional thoughts and acts F42.2 ; DANIELA (generalized anxiety disorder) F41.1 and BMI 45.0-49.9, adult Z68.42 [facility] [address] [id number], [place] [id number] Nov, [facility] Oncology[facility] [address] [id number], [place] [id number] Nov, Other conjunctivitis of both eyes H10.89 and Sciatica, right side M54.31 [facility] [address] [id number], [place] [id number] Nov, [facility] [address] [id number], [place] [id number] Nov, [facility] [address] [id number], [place] [id number] October, [facility] [address] [id number], [place] [id number] October, [facility], [place] [address] [facility] [id number] [address] [place] [id number] October, BMI 45.0-49.9, adult Z68.42 ; Mixed obsessional thoughts and acts F42.2 ; Recurrent major depressive disorder, in partial remission F33.41 and DANIELA (generalized anxiety disorder) F41.1 [facility] [address] [id number], [place] [id number] October, Benign essential hypertension I10 ; Morb id obesity E66.01 and BMI 45.0-49.9, adult Z68.42 [facility] [address] [id number], [place] [id number] Sep, [facility] [address] [id number], [place] [id number] Sep, [facility] [address] [id number], [place] [id number] Sep, [facility] [address] [id number], [place] [id number] Sep, Hospital discharge follow-up Z09 ; Aller gic rhinitis, unspecified seasonality, unspecified trigger J30.9 and Shortness of breath R06.02 [facility] [address] [id number], [place] [id number] Sep, Recurrent major depressive disorder, in partial remission F33.41 [facility] [address] [id number], [place] [id number] Aug, Irritable mood R45.4 [facility], [place] [address] [facility] [id number] [address] [place] [phone] Aug, [facility] [address] [id number], [place] [id number] Jul, Benign essential hypertension I10 ; Robert a R60.9 and Impacted cerumen of left ear H61.22 [place] [address] [place] [id number] [address] [place] [phone] Jul, Major depression F32.9 ; Rec urrent major depressive disorder, in partial remission F33.41 and Anxiety F41.9 [place] [address] [place] [id number] [address] [place] [phone] Jun, Major depression F32.9 ; Rec urrent major depressive disorder, in partial remission F33.41 and Anxiety F41.[address] [place] [address] [id number], [place] [id number] Jun, Major depression F32.9 ; Morbid obesity E66.01 ; Irritable mood R45.4 ; Hand weakness R29.898 and Vitamin D deficiency E55.[address] [place] [address] [id number], [place] [id number] Jun, [place] [address] [id number], [place] [id number] May, Major depression F32.9 [place] [address] [facility] [id number] [address] [place] [phone] May, Major depression F32.[address] [place] [address] [id number], [place] [id number] May, BMI 50.0-59.9, adult Z68.43 ; Major depr ession F32.9 ; Anxiety F41.9 ; Hypertrophic toenail L60.2 and Pain of left great toe M79.[address] [address] [id number], [place] [id number] May, Recurrent major depressive disorder, in partial remission F33.41 [place] [address] [place] [id number] [address] [place] [phone] Apr, [facility] [address] [id number], [place] [id number] Apr, [facility], [place] [address] [facility] [id number] [address] [place] [phone] Apr, Major depression F32.9 [facility] [id number] [place] [address] [id number] Apr, Severe episode of recurrent major depres sive disorder, without psychotic features F33.2 ; Anxiety F41.9 and Insomnia G47.00 [facility] [address] [id number], [place] [id number] Apr, [facility] [place] [address] [facility] [id number] [address] [place] [phone] Apr, [facility] [address] [id number], [place] [id number] Apr, [facility] [address] [id number], [place] [id number] Mar, [facility] [id number] [place] [address] [id number] Mar, Allergic conjunctivitis of both eyes H10 .13 [facility] [place] [address] [facility] [id number] [address] [place] [phone] Mar, Major depression F32.9 [facility] [address] [id number], [place] [id number] Mar, Metabolic syndrome E88.81 ; History of g astric bypass Z98.890 ; Benign essential hypertension I10 and Allergic conjunctivitis of both eyes H10.13 [facility] [place] [address] [facility] [id number] [address] [place] [phone] Mar, Major depression F32.9 [facility] [address] [id number], [place] [id number] Feb, [facility], [place] [address] [place] [id number] [address] [place] [phone] 12 Feb, 2017 Major depression F32.9 [place] [address] [facility] [id number] [place] [address] [id number] Feb, Subacute maxillary sinusitis J01.00 and Bronchitis J40 [place] [address] [facility] [id number] [address] [place] [id number] Feb, Major depressive disorder, r ecurrent, moderate F33.1 [facility] [address] [facility] [address] [id number], [place] [id number] Jan, [facility] [id number] [place] [address] [id number] Jan, Acute non-recurrent maxillary sinusitis J01.00 and Skin tag L91.[id number] [place] [address] [id number] Jan, Cough R05 and Sinus congestion R09.[address] [id number], [place] [id number] Jan, [address] [id number] [place] [address] [id number] Jan, Benign essential hypertension I10 ; Hist ory of gastric bypass Z98.890 and Nausea and vomiting in adult R11.2 [place] [address] [facility] [id number] [address] [place] [phone] Jan, Major depressive disorder, r ecurrent, moderate F33.1 [place] [address] [facility] [id number] [address] [place] [id number] Dec, Insomnia G47.00 ; Recurrent major depressive disorder, in partial remission F33.41 and Morbid obesity E66.01 [facility] [address] [facility] [id number] [place] [address] [id number] Dec, [address] [id number], [place] [id number] Dec, Chronic bacterial conjunctivitis of left eye H10.[address] [id number], [place] [id number] 27 Nov, [address] [id number], [place] [id number] Nov, Dental examination Z01.[address] [id number], [place] [id number] 23 Nov, 2016 Benign essential hypertension I10 ; Hist ory of gastric bypass Z98.890 and Nausea and vomiting in adult R11.2 [place] [address] [facility] [id number] [address] [place] [id number] 13 Nov, 2016 Major depressive disorder, r ecurrent, moderate F33.1 ; Generalized anxiety disorder F41.1 and Insomnia due to other mental disorder F51.05 [place] [address] [facility] [id number] [address] [place] [phone] 12 Nov, 2016 Recurrent major depressive d isorder, in partial remission F33.41 ; Insomnia G47.00 and Morbid obesity E66.01 [facility] [address] [id number] [place] [address] S [id number] October, Abscess of left arm L02.414 [place] [address] [facility] [id number] [address] [place] [phone] October, Morbid obesity E66.01 ; Lida r depression F32.9 and Recurrent major depressive disorder, in partial remission F33.41 [address] [id number], [place] [id number] Sep, Benign essential hypertension I10 ; Morb id obesity E66.01 ; S/P gastric bypass Z98.84 ; Abscess L02.91 and Chronic bacterial conjunctivitis of left eye H10.[address] [id number], [place] [id number] 17 Sep, 2016 Dental examination Z01.20 [facility], [place] [address] [facility] [id number] [address] [place] [id number] 11 Sep, 2016 Morbid obesity E66.01 ; Lida r depression F32.9 and Recurrent major depressive disorder, in partial remission F33.41 [facility] [place] [address] [facility] [id number] [address] [place] [id number] Jul, [facility] [place] [address] [facility] [id number] [address] [place] [id number] Jul, Major depressive disorder, r ecurrent, moderate F33.1 [place] [address] [facility] [id number] [address] [place] [phone] Jul, Major depressive disorder, r ecurrent, moderate F33.1 and Generalized anxiety disorder F41.1 [facility] [id number] [place] [address] [id number] Jul, Cough R05 [place] [address] [facility] [id number] [address] [place] [id number] Jul, Morbid obesity E66.01 ; Lida r depression F32.9 and Recurrent major depressive disorder, in partial remission F33.41 [facility] [id number] [place] [address] [id number] Jul, [facility] [id number] [place] [address] [id number] Jul, [place] [id number] [place] [address] [id number] Jul, Gastroenteritis K52.9 and Cough R[address] [place] [id number] [place] [address] [id number] Jun, Acute bacterial conjunctivitis of left e ye H10.32 [place] [address] [facility] [id number] [address] [place] [phone] Jun, [place] [address] [facility] [id number] [address] [place] [phone] Jun, Recurrent major depressive d isorder, in partial remission F33.41 [place] [address] [facility] [id number] [address] [place] [phone] May, Major depression F32.9 and M orbid obesity E66.01 [facility] [place] [address] [facility] [id number] [address] [place] [phone] May, [facility] [address] [facility] [id number] [place] [address] [id number] May, Thrush B37.0 [facility] [place] [address] [facility] [id number] [address] [place] [phone] Apr, Major depressive disorder, r ecurrent, moderate F33.1 [facility] [place] [address] [facility] [id number] [address] [place] [phone] Apr, Insomnia G47.00 ; Major depr ession F32.9 and Recurrent major depressive disorder, in partial remission F33.41 [place] [address] [facility] [id number] [address] [place] [phone] Apr, [place] [address] [facility] [id number] [address] [place] [phone] Apr, Major depression F32.9 and R ecurrent major depressive disorder, in partial remission F33.[id number] [place] [address] [id number] Mar, Benign essential hypertension I10 ; Morb id obesity E66.01 ; Impacted cerumen of both ears H61.23 ; Laceration of finger of right hand, initial encounter S61.219A and Encounter for immunization Z23 [facility] [place] [address] [facility] [id number] [address] [place] [phone] Mar, [facility] [place] [address] [facility] [id number] [address] [place] [phone] Mar, [place] [address] [facility] [id number] [address] [place] [phone] Mar, [facility] [address] [place] [address] AVE [id number], [place] [id number] Feb, Nausea R11.0 ; Blood in the stool K92.1 and Benign essential hypertension I10 [facility] [address] [facility] [id number] [address] [place] [phone] Feb, Major depression F32.9 and R ecurrent major depressive disorder, in partial remission F33.[address] [facility] [address] [id number], [place] [id number] Feb, [facility] [address] [id number], [place] [id number] Feb, Recurrent major depressive disorder, in partial remission F33.[address] [facility] [address] [id number], [place] [id number] Jan, [facility] [address] [id number], [place] [id number] Jan, Benign essential hypertension I10 ; Robert a R60.9 and Hyperlipidemia, unspecified hyperlipidemia type E78.5 [facility] [address] [id number], [place] [id number] Jan, Recurrent major depressive disorder, in partial remission F33.41 [facility] [address] [id number] [place], [place] [id number] Jan, [facility] [address] [id number], [place] [id number] Jan, [facility] [address] [id number], [place] [id number] Jan, [facility] [place] [address] [facility] [id number] [address] [place] [phone] Jan, [facility] [address] [facility] [id number] [address] [place] [phone] Dec, [facility] [place] [address] [facility] [id number] [address] [place] [id number] Nov, [facility] [place] [address] [facility] [id number] [address] [place] [phone] Nov, Major depression F32.9 [facility] [place] [address] [facility] [id number] [address] [place] [phone] Nov, [facility] [place] [address] [facility] [id number] [address] [place] [phone] Nov, [place] [address] [place] [id number] [address] [place] [phone] Nov, Major depressive disorder, r ecurrent episode, mild F33.0 and Anxiety F41.[address] [id number], [place] [id number] Nov, [id number] [place] [address] [id number] October, Left elbow pain M25.522 and Other season al allergic rhinitis J30.2 [id number] [place] [address] [id number] October, [place] [id number] [place] [phone] October, Major depressive disorder, r ecurrent, moderate F33.1 [place] [address] [place] [id number] [address] [place] [phone] October, Major depression F32.9 [place] [address] [place] [id number] [address] [place] [id number] Sep, [place] or callus L84 and Onych omycosis B35.1 [place] [address] [place] [id number] [address] [place] [id number] Sep, Major depressive disorder, r ecurrent, moderate F33.1 [facility] [place] [address] [facility] [id number] [address] [place] [phone] Sep, Major depression F32.9 [place] [address] [place] [id number] [address] [place] [phone] Sep, Moderate episode of recurren t major depressive disorder F33.1 [place] [address] [facility] [id number] [place] [address] [id number] Sep, Muscle strain T14.8 [facility] [place] [address] [facility] [id number] [address] [place] [id number] Aug, Major depression F32.9 [facility] [place] [address] [facility] [id number] [address] [place] [phone] Aug, Major depression F32.9 [facility] [place] [address] [facility] [id number] [address] [place] [phone] Jul, Morbid obesity E66.01 and Ma cora depression F32.9 [facility] [place] [address] [facility] [id number] [address] [place] [phone] Jul, Depression, major, recurrent , moderate F33.1 [facility] [address] [facility] [id number] [place] [address] [id number] Jul, [facility] [place] [address] [facility] [id number] [address] [place] [phone] Jul, [facility] [place] [address] [facility] [id number] [address] [place] [phone] Jul, Major depression F32.9 and M orbid obesity E66.01 [facility] [address] [facility] [address] [id number] [place] [address] [id number] Jul, Type II diabetes mellitus E11.9 ; Callus of foot L84 ; Benign essential hypertension I10 and Renal insufficiency N28.9 [facility] [place] [address] [facility] [id number] [address] [place] [id number] Jul, Depression, major, recurrent , moderate F33.1 [facility] [place] [address] [facility] [id number] [address] [place] [id number] Jul, Major depression F32.9 [facility], [place] [address] [facility] [id number] [address] [place] [id number] Jul, [facility], [place] [address] [facility] [id number] [address] [place] [id number] Jun, Major depression F32.9 [place] [address] [facility] [id number] [address] [place] [id number] Jun, Major depressive disorder, r ecurrent, moderate F33.1 [place] [address] [facility] [id number] [address] [place] [id number] Jun, [place] [address] [facility] [id number] [address] [place] [id number] Jun, Major depressive disorder, r ecurrent, moderate F33.1 and Major depression F32.[address] [id number] [place] [id number] Jun, Type II diabetes mellitus E11.9 [place] [address] [facility] [id number] [address] [place] [phone] Jun, Depression, major, recurrent , moderate F33.1 [place] [address] [place] [id number] [address] [place] [id number] May, Major depressive disorder, r ecurrent, moderate F33.1 [place] [address] [place] [id number] [address] [place] [id number] May, [address] [id number] [place] [address] [id number] May, Edema R60.9 [place] [address] [place] [id number] [address] [place] [id number] 17 May, 2015 Insomnia G47.00 and Major de pression F32.[address] [id number] [place] [address] [id number] 15 May, 2015 Morbid obesity E66.01 ; Edema R60.9 ; Sh ortness of breath R06.02 ; Benign essential hypertension I10 and Renal insufficiency N28.[address] [id number] [place] [address] [id number] 14 May, 2015 Hyperlipemia 272.4 and Renal insufficien cy N28.9 [place] [address] [facility] [id number] [address] [place] [id number] Apr, Major depression F32.9 [facility], [place] [address] [facility] [id number] [address] [place] [id number] Apr, [place] [address] [facility] [id number] 59 [place] [address] Apr, Major depressive disorder, r ecurrent, moderate F33.1 [facility] [address] [id number] [id number] Apr, Type II diabetes mellitus E11.9 ; Benign essential hypertension I10 ; Edema R60.9 and Renal insufficiency N28.9 [place] [address] [address] [facility] [id number] [address] [place] [address] Mar, Major depressive disorder, r ecurrent, moderate F33.1 [place] [address] [address] [place] [id number] [address] [place] [id number] Mar, [place] [address] [address] [facility] [id number] [address] [place] [id number] Mar, Major depression F32.[id number] [place] [id number] Mar, Morbid obesity E66.01 ; Benign essential hypertension I10 and Type II diabetes mellitus E11.9 [place] [address] [address] [facility] [id number] [address] [place] [id number] Feb, Major depressive disorder, r ecurrent, moderate F33.1 [place] [address] [address] [facility] [id number] [address] [place] [address] Feb, Major depressive disorder, r ecurrent episode, in partial or unspecified remission 296.35 ; Anxiety state, unspecified 300.00 and Morbid obesity 278.01 [place] [address] [address] [facility] [id number] [address] [place] [address] Feb, [facility] [address] [id number][place] [id number] Feb, Vomiting 787.03 and Viral syndrome 079.9 9 [facility] [place] [address] [facility] [id number] [address] [place] [address] 15 Feb, 2015 Major depression, recurrent 296.30 ; Generalized anxiety disorder 300.02 and No condition on [place] II V71.09 [facility] [address] [facility] [address] [id number][place] [id number] Feb, Skin tag 701.9 [facility] [place] [address] [facility] [id number] [address] [place] [id number] Feb, [facility] [place] [address] [facility] [id number] [address] [place] [id number] Jan, Depression, major, recurrent , moderate 296.[address] [id number][place] [id number] Jan, Nausea and vomiting 787.01 ; Rib pain on right side 786.50 and Fall on or from sidewalk curb E880.1 [facility] [place] [address] [place] [id number] [address] [place] [id number] Jan, [facility] [place] [address] [facility] [id number] [address] [place] [id number] Jan, Major depressive disorder, r ecurrent episode, in partial or unspecified remission 296.35 and Anxiety state, unspecified 300.[address] [id number][place] [id number] Jan, [facility] [place] [address] [facility] [id number] [address] [place] [address] Jan, Depression, major, recurrent , moderate 296.32 [facility] [place] [address] [facility] [id number] [address] [place] [address] Jan, Major depression, recurrent 296.30 ; No condition on [place] II V71.09 and No condition on axis III V71.[address] [id number][place] [id number] Jan, Drug-induced nausea and vomiting 787.01 [place] [id number] [address] [place] [address] Jan, Depression, major, recurrent , moderate 296.[address] [address] Dec, Depression, major, recurrent , moderate 296.[address] [id number] [place] [id number] Dec, Morbid obesity 278.01 ; Metabolic syndro me 277.7 ; Hyperlipemia 272.4 ; Benign essential hypertension 401.1 ; Dietary counseling V65.3 ; Exercise counseling V65.41 and Inflamed skin tag 701.[address] [address] Dec, Depression, major, recurrent , moderate 296.[address] [address] Dec, [address] [address] Dec, Major depression, recurrent 296.30 ; Anxiety, generalized 300.02 and No condition on [place] II V71.[address] [address] Dec, Depression, major, recurrent , moderate 296.[address] [address] Dec, Major depressive disorder, r ecurrent episode, moderate 296.[address] [address] Dec, Depression, major, recurrent , moderate 296.[address] [address] Dec, Depression, major, recurrent , moderate 296.[address] [address] Dec, Depression, major, recurrent , moderate 296.32 [facility] [place] [address] [place] [id number] [address] [place] [address] Dec, Depression, major, recurrent , moderate 296.32 [facility] [place] [address] [place] [id number] [address] [place] [address] Nov, Depression, major, recurrent , moderate 296.32 [facility] [place] [address] [address] Nov, Major depression 296.20 ; So cial phobia 300.23 and No condition on [place] II V71.09 [facility] [place] [address] [address] Nov, Depression, major, recurrent , moderate 296.32 [place] [address] [address] Nov, Major depressive disorder, r ecurrent episode, moderate 296.32 and Generalized anxiety disorder 300.02 [facility] [place] [address] [address] Nov, Depression, major, recurrent , moderate 296.32 [facility] [place] [address] [address] Nov, Depression, major, recurrent , moderate 296.32 [facility] [place] [address] [address] October, Generalized anxiety disorder 300.02 ; No condition on [place] II V71.09 and Major depressive disorder, recurrent 296.30 [facility] [place] [address] [address] Sep, [facility] [place] [address] [address] Sep, [facility] [place] [address] [place] [id number] [address] [place] [id number] Aug, [facility] [place] [address] [address] Aug, 2014 [facility] [address] [id number] [facility] [place] [address] 23 Aug, 2014 [facility] [place] [facility] [address] [id number] [facility] [place] [address] 23 Aug, 2014 [facility] [place] [facility] [address] [id number] [facility] [place] [address] 20 Aug, 2014 [facility] [place] [facility] [address] [id number] [address] [place] [address], [place] [address] 20 Aug, 2014 [facility] [place] [facility] [address] [id number] [address] [place] [address], [place] [address] 20 Aug, 2014 [facility] [place] [facility] [address] [id number] [address] [place] [address], [place] [address] 20 Aug, 2014 [facility] [place] [facility] [address] [id number] [address] [place] [address], [place] [address] 13 Aug, 2014 [facility] [place] [facility] [address] [id number] [address] [place] [address], [place] [address] 13 Aug, 2014 [facility] [place] [facility] [address] [id number] [address] [place] [address], [place] [address] 13 Aug, 2014 [facility] [place] [facility] [address] [id number] [address] [place] [address], [place] [address] 13 Aug, 2014 [facility] [place] [facility] [address] [id number] [address] [place] [address], [place] [address] 12 Aug, 2014 [facility] [place] [facility] [address] [id number] [address] [place] [address], [place] [address] 12 Aug, 2014 [facility] [place] [facility] [address] [id number] [address] [place] [address], [place] [address] 10 Aug, 2014 [facility] [place] [facility] [address] [id number] [address] [place] [address], [place] [address] 10 Aug, 2014 [facility] [place] [facility] [address] [id number] [address] [place] [address], [place] [address] 09 Aug, 2014 [facility] [place] [facility] [address] [id number] [address] [address] Aug, [facility] [address] [id number] [address] [place] [address], [place] [address] Jul, [facility] [place] [facility] [address] [id number] [address] [place] [address], [place] [address] Jul, [facility] [address] [id number] [address] [place] [address], [place] [address] Jul, 2014 [facility] [place] [facility] [address] [id number] [address] [place] [address], [place] [address] Jul, [facility] [address] [id number] [address] [place] [address], [place] [address] Jul, [facility] [address] [id number] [address] [place] [address], [place] [address] Jul, [facility] [address] [id number] [address] [place] [address], [place] [address] Jun, [facility] [address] [id number] [address] [place] [address], [place] [address] Jun, [facility] [address] [id number] [address] [place] [address], [place] [address] Jun, [facility] [address] [id number] [address] [place] [address], [place] [address] Jun, [facility] [place] [facility] [address] [id number] [address] [place] [address], [place] [address] Jun, [facility] [address] [id number] [address] [place] [address], [place] [address] Jun, [facility] [place] [facility] [address] [id number] [address] [place] [address], [place] [address] Jun, [facility] [place] [facility] [address] [id number] [address] [place] [address], [place] [address] Jun, [facility] [place] [facility] [address] [id number] [address] [place] [address], [place] [address] Jun, [facility] [address] [id number] [address] [place] [address], [place] [address] Jun, [facility] [address] [id number] [address] [place] [address], [place] [address] Jun, [facility] [address] [id number] [address] [place] [address], [place] [address] Jun, [facility] [address] [id number] [place] [id number] Jun, [facility] [address] [id number] [address] [place] [address], [place] [address] Jun, [facility] [address] [id number] [address] [place] [address], [place] [address] Jun, [facility] [address] [id number] [address] [place] [address], [place] [address] Jun, [facility] [address] [id number] [address] [place] [address], [place] [address] May, [facility] [address] [id number] [address] [place] [address], [place] [address] May, [facility] [address] [id number] [address] [place] [address], [place] [address] May, [facility] [address] [id number] [address] [place] [address], [place] [address] May, [facility] [place] [facility] [address] [id number] [address] [place] [address] Apr, [facility] [place] [facility] [address] [id number] [address] [place] [address], [place] [address] Apr, [facility] [place] [facility] [address] [id number] [address] [place] [address], [place] [address] Apr, [facility] [place] [facility] [address] [id number] [address] [place] [address] Apr, [facility] [place] [facility] [address] [id number] [address] [place] [address] Apr, [facility] [place] [facility] [address] [id number] [address] [place] [address], [place] [address] Apr, [facility] [place] [facility] [address] [id number] [address] [place] [address], [place] [address] Apr, [facility] [place] [facility] [address] [id number] [address] [place] [address], [place] [address] Apr, [facility] [place] [facility] [address] [id number] [address] [place] [address], [place] [address] Apr, [facility] [place] [facility] [address] [id number] [address] [place] [address], [place] [address] Apr, [facility] [place] [facility] [address] [id number] [address] [place] [address], [place] [address] Apr, [facility] [place] [facility] [address] [id number] [address] [place] [address], [place] [address] Apr, [facility] [place] [facility] [address] [id number] [address] [place] [address], [place] [address] Apr, [facility] [place] [facility] [address] [id number] [address] [place] [address], [place] [address] Apr, [facility] [place] [facility] [address] [id number] [address] [place] [address], [place] [address] Apr, [facility] [place] [facility] [address] [id number] [address] [place] [address], [place] [address] Apr, [facility] [place] [facility] [address] [id number] [address] [place] [address], [place] [address] Apr, [facility] [place] [facility] [address] [id number] [address] [place] [address], [place] [address] Apr, [facility] [place] [facility] [address] [id number] [address] [place] [address], [place] [address] Apr, [facility] [place] [facility] [address] [id number] [address] [place] [address], [place] [address] Apr, [facility] [place] [facility] [address] [id number] [address] [place] [address], [place] [address] Mar, [facility] [place] [facility] [address] [id number] [address] [place] [address], [place] [address] Mar, [facility] [place] [facility] [address] [id number] [address] [place] [address], [place] [address] Mar, [facility] [place] [facility] [address] [id number] [address] [place] [address], [place] [address] Mar, [facility] [place] [facility] [address] [id number] [address] [place] [address], [place] [address] Mar, [facility] [place] [facility] [address] [id number] [address] [place] [address], [place] [address] Mar, [facility] [place] [facility] [address] [id number] [address] [place] [address], [place] [address] Mar, [facility] [place] [facility] [address] [id number] [address] [place] [address], [place] [address] Mar, [facility] [place] [facility] [address] [id number] [address] [place] [address], [place] [address] Mar, [facility] [place] [facility] [address] [id number] [address] [place] [address], [place] [address] Mar, [facility] [place] [facility] [address] [id number] [address] [place] [address], [place] [address] Feb, [facility] [place] [facility] [address] [id number] [address] [place] [address], [place] [address] Feb, [facility] [place] [facility] [address] [id number] [address] [place] [address], [place] [address] Feb, [facility] [place] [facility] [address] [id number] [address] [place] [address], [place] [address] Feb, [facility] [place] [facility] [address] [id number] [address] [place] [address], [place] [address] Jan, [facility] [place] [facility] [address] [id number] [address] [place] [address], [place] [address] Jan, [facility] [place] [facility] [address] [id number] [facility] [address] Jan, [facility] [place] [facility] [address] [id number] [facility] [address] Jan, [facility] [place] [facility] [address] [id number] [facility] [address] Jan, [facility] [place] [facility] [address] [id number] [address] [place] [address], [place] [address] Jan, [facility] [place] [facility] [address] [id number] [facility] [address] Dec, [facility] [place] [facility] [address] [id number] [address] [place] [address], [place] [address] Dec, [facility] [place] [facility] [address] [id number] [address] [place] [address], [place] [address] Nov, [facility] [place] [facility] [address] [id number] [address] [place] [address], [place] [address] Nov, [facility] [place] [facility] [address] [id number] [address] [place] [address], [place] [address] Nov, [facility] [place] [facility] [address] [id number] [address] [place] [address], [place] [address] Nov, [facility] [place] [facility] [address] [id number] [address] [place] [address], [place] [address] Nov, [facility] [place] [facility] [address] [id number] [address] [place] [address], [place] [address] Nov, [facility] [place] [facility] [address] [id number] [address] [place] [address], [place] [address] Sep, [facility] [place] [facility] [address] [id number] [address] [place] [address], [place] [address] Sep, [facility] [place] [facility] [address] [id number] [address] [place] [address], [place] [address] Sep, [facility] [place] [facility] [address] [id number] [address] [place] [address], [place] [address] Sep, [facility] [address] [id number] [address] [place] [address], [place] [address] Aug, [facility] [address] [id number] [address] [place] [address], [place] [address] Aug, [facility] [address] [id number] [address] [place] [address], [place] [address] Jul, [facility] [address] [id number] [address] [place] [address], [place] [address] Jul, [facility] [address] [id number] [address] [place] [address], [place] [address] Jun, [facility] [address] [id number] [address] [place] [address], [place] [address] Jun, [facility] [address] [id number] [address] [place] [address], [place] [address] Jun, [facility] [address] [id number] [address] [place] [address], [place] [address] Jun, [facility] [address] [id number] [address] [place] [address], [place] [address] May, [facility] [address] [id number] [address] [place] [address], [place] [address] 24 May, 2013 [facility] [address] [id number] [address] [place] [address], [place] [address] May, [facility] [address] [id number] [address] [place] [address], [place] [address] May, [facility] [address] [id number] [address] [place] [address], [place] [address] May, [facility] [address] [id number] [address] [place] [address], [place] [address] May, [facility] [address] [id number] [address] [place] [address], [place] [address] Apr, [facility] [place] [facility] [address] [id number] [address] [place] [address], [place] [address] Apr, [facility] [address] [id number] [address] [place] [address], [place] [address] Apr, [facility] [address] [id number] [address] [place] [address], [place] [address] Apr, [facility] [address] [id number] [address] [place] [address], [place] [address] Mar, [facility] [address] [id number] [address] [place] [address], [place] [address] Mar, [facility] [address] [id number] [address] [place] [address], [place] [address] Mar, [facility] [address] [id number] [address] [place] [address], [place] [address] Mar, [facility] [address] [id number] [address] [place] [address], [place] [address] Feb, [facility] [address] [id number] [place] [id number] Jan, [facility] [address] [id number] [address] [place] [address], [place] [address] Jan, [facility] [address] [id number] [address] [place] [address], [place] [address] Dec, [facility] [address] [id number] [address] [place] [address], [place] [address] Dec, [facility] [address] [id number] [address] [place] [address], [place] [id number] Dec, [facility] [address] [id number] [place] [id number] Dec, [facility] [address] [id number] [address] [place] [address], [place] [id number] Nov, [facility] [address] [id number] [address] [place] [address], [place] [id number] Nov, [facility] [place] [address] [id number] [address] [place] [id number] Nov, [facility] [place] [address] [id number] [address] [place] [id number] Nov, [facility] [place] [address] [id number] [address] [place] [id number] Nov, [facility], [place] [address] [id number] [address] [place] [id number] October, [facility], [place] [address] [id number] [address] [place] [id number] October, [facility], [place] [address] [id number] [address] [place] [id number] Aug, [facility], [place] [address] [facility] [id number] [address] [place] [id number] Nov, IMMUNIZATIONS No Known Immunizations SOCIAL HISTORY Never Assessed REASON FOR VISIT PLAN OF CARE VITAL SIGNS MEDICATIONS Medication Instructions Dosage Frequency Start Date End Date Duration S tatus Baclofen 10 mg Orally Three times a day 1/2 tablet 8h Active RESULTS No Results PROCEDURES No Known [...] 03/2016 Hospitalization History [facility] 08/2017
--- OUTSIDE RECORDS SUMMARY | 2019-11-29 09:24 | XMS REPORT ---
Author Author Curt DIAZ [facility] Address [address] [place] [address] Care Team Providers Care Counseling Case Manager Name Role Phone CHRIS DIAZ Unavailable PROBLEMS Type Condition ICD9-CM Code KNG87-XN Code Onset Dates Condition S tatus SNOMED Code Problem Metabolic syndrome E88.81 Active 2 05049311 Problem Severe episode of recurrent major depressive disorder, without psychotic features F33.2 Active 64825673 Problem Anxiety F41.9 Active 80691080 Problem Depressive disorder, not elsewhere classified F32. 9 Active 83123983 Problem Sciatica, right side M54.31 Active [id number] Problem Mixed obsessional thoughts and acts F42.2 Active 71563049 Problem Vitamin D deficiency E55.9 Active 04301332 Problem DANIELA (generalized anxiety disorder) F41.1 Active 06247278 Problem BMI 45.0-49.9, adult Z68.42 Active 105758087 Problem Hyperlipemia E78.5 Active 4263223 4 Problem Major depression F32.9 Active 370 296678 Problem Insomnia G47.00 Active 496371317 Problem Renal insufficiency N28.9 Active 350455286 Problem Edema R60.9 Active 006125914 Problem Morbid obesity E66.01 Active 87629 6002 Problem Callus of foot L84 Active 32349 1005 Problem Benign essential hypertension I10 Active 5147675 Problem Recurrent major depressive disorder, in partial remission F33.41 Active 26985298 ALLERGIES Substance Reaction Event Type Date Status [place] throat swells Drug Allergy Jan, Active [...] Jan, Active ENCOUNTERS Encounter Location Date Diagnosis [place] [address] [facility] [id number] [address] [place] [phone] Mar, [place] [address] [facility] [id number] [address] [place] [phone] Jan, Recurrent major depressive d isorder, in partial remission F33.41 ; Mixed obsessional thoughts and acts F42.2 and BMI 45.0-49.9, adult Z68.42 [facility] [address] [id number], [place] [id number] Jan, [facility] [id number] [place] [address] [id number] Jan, Benign essential hypertension I10 ; BMI 45.0-49.9, adult Z68.42 ; Metabolic syndrome E88.81 and Allergic rhinitis, unspecified seasonality, unspecified trigger J30.9 [place] [address] [facility] [id number] [address] [place] [phone] Dec, DANIELA (generalized anxiety dis order) F41.1 and Depressive disorder, not elsewhere classified F32.9 [facility] [address] [id number], [place] [id number] Dec, Recurrent major depressive disorder, in partial remission F33.41 [facility] [address] [id number], [place] [id number] Dec, [facility] [address] [id number], [place] [id number] Nov, [facility] [address] [id number], [place] [id number] Nov, Recurrent major depressive disorder, in partial remission F33.41 [place] [address] [facility] [id number] [address] [place] [phone] Nov, Recurrent major depressive d isorder, in partial remission F33.41 ; Mixed obsessional thoughts and acts F42.2 ; DANIELA (generalized anxiety disorder) F41.1 and BMI 45.0-49.9, adult Z68.42 [facility] [address] [id number], [place] [id number] Nov, [facility] [address] [id number], [place] [id number] Nov, Other conjunctivitis of both eyes H10.89 and Sciatica, right side M54.31 [facility] [address] [id number], [place] [id number] Nov, [facility] [address] [id number], [place] [id number] Nov, [facility] [address] [id number], [place] [id number] October, [facility] [address] [place] [address] AVE [id number], [place] [id number] October, [facility] [address] [facility] [id number] [address] [place] [phone] October, BMI 45.0-49.9, adult Z68.42 ; Mixed obsessional thoughts and acts F42.2 ; Recurrent major depressive disorder, in partial remission F33.41 and DANIELA (generalized anxiety disorder) F41.1 [facility] [address] [id number], [place] [id number] October, Benign essential hypertension I10 ; Morb id obesity E66.01 and BMI 45.0-49.9, adult Z68.42 [facility] [address] [id number], [place] [id number] Sep, [facility] [address] [id number], [place] [id number] Sep, [facility] [address] [id number], [place] [id number] Sep, [facility] [address] [id number], [place] [id number] Sep, Hospital discharge follow-up Z09 ; Aller gic rhinitis, unspecified seasonality, unspecified trigger J30.9 and Shortness of breath R06.[address] [id number], [place] [id number] 10 Sep, 2017 Recurrent major depressive disorder, in partial remission F33.[address] [id number], [place] [id number] 15 Aug, 2017 Irritable mood R45.4 [place] [address] [facility] [id number] [address] [place] [phone] 09 Aug, [id number] [place] [address] [id number] 22 Jul, 2017 Benign essential hypertension I10 ; Robert a R60.9 and Impacted cerumen of left ear H61.22 [place] [address] [facility] [id number] [address] [place] [phone] 14 Jul, 2017 Major depression F32.9 ; Rec urrent major depressive disorder, in partial remission F33.41 and Anxiety F41.9 [place] [address] [facility] [id number] [address] [place] [phone] Jun, Major depression F32.9 ; Rec urrent major depressive disorder, in partial remission F33.41 and Anxiety F41.[address] [id number], [place] [id number] Jun, Major depression F32.9 ; Morbid obesity E66.01 ; Irritable mood R45.4 ; Hand weakness R29.898 and Vitamin D deficiency E55.[address] [id number], [place] [id number] Jun, [address] [id number], [place] [id number] May, Major depression F32.9 [place] [address] [facility] [id number] [address] [place] [phone] May, Major depression F32.[id number] [place] [address] [id number] May, BMI 50.0-59.9, adult Z68.43 ; Major depr ession F32.9 ; Anxiety F41.9 ; Hypertrophic toenail L60.2 and Pain of left great toe M79.675 [facility] [address] [id number], [place] [id number] May, Recurrent major depressive disorder, in partial remission F33.41 [facility] [address] [place] [id number] [address] [place] [phone] Apr, [facility] [id number] [place] [address] [id number] Apr, [facility] [address] [place] [id number] [address] [place] [address] Apr, Major depression F32.[address] [place] [id number] [place] [address] [id number] Apr, Severe episode of recurrent major depres sive disorder, without psychotic features F33.2 ; Anxiety F41.9 and Insomnia G47.00 [facility] [id number] [place] [address] [id number] Apr, [facility] [address] [facility] [id number] [address] [place] [phone] Apr, [facility] [id number] [place] [address] [id number] Apr, [facility] [address] [id number], [place] [id number] Mar, [facility] [id number] [place] [address] [id number] Mar, Allergic conjunctivitis of both eyes H10 .13 [facility] [address] [facility] [id number] [address] [place] [address] Mar, Major depression F32.9 [facility] [id number] [place] [address] [id number] Mar, Metabolic syndrome E88.81 ; History of g astric bypass Z98.890 ; Benign essential hypertension I10 and Allergic conjunctivitis of both eyes H10.13 [facility] [address] [facility] [id number] [address] [place] [phone] 17 Mar, 2017 Major depression F32.9 [facility] [id number] [place] [address] [id number] Feb, [facility] [address] [facility] [id number] [address] [place] [phone] Feb, Major depression F32.9 [facility] [id number] [place] [address] [id number] Feb, Subacute maxillary sinusitis J01.00 and Bronchitis J40 [place] [address] [facility] [id number] [address] [place] [phone] Feb, Major depressive disorder, r ecurrent, moderate F33.1 [facility] [address] [id number], [place] [id number] Jan, [place] [id number] [place] [address] [id number] Jan, Acute non-recurrent maxillary sinusitis J01.00 and Skin tag L91.8 [facility] [address] [facility] [id number] [place] [address] [id number] Jan, Cough R05 and Sinus congestion R09.81 [facility] [address] [id number], [place] [id number] Jan, [facility] [id number] [place] [address] [id number] Jan, Benign essential hypertension I10 ; Hist ory of gastric bypass Z98.890 and Nausea and vomiting in adult R11.2 [place] [address] [facility] [id number] [address] [place] [phone] Jan, Major depressive disorder, r ecurrent, moderate F33.1 [place] [address] [facility] [id number] [address] [place] [address] Dec, Insomnia G47.00 ; Recurrent major depressive disorder, in partial remission F33.41 and Morbid obesity E66.01 [facility] [address] [facility] [address] [id number], [place] [id number] Dec, [facility] [address] [id number], [place] [id number] Dec, Chronic bacterial conjunctivitis of left eye H10.[address] [id number], [place] [id number] Nov, [address] [id number] [place] [address] [id number] Nov, Dental examination Z01.[address] [id number], [place] [id number] Nov, Benign essential hypertension I10 ; Hist ory of gastric bypass Z98.890 and Nausea and vomiting in adult R11.2 [place] [id number] [place] [phone] Nov, Major depressive disorder, r ecurrent, moderate F33.1 ; Generalized anxiety disorder F41.1 and Insomnia due to other mental disorder F51.05 [place] [id number] [place] [phone] Nov, Recurrent major depressive d isorder, in partial remission F33.41 ; Insomnia G47.00 and Morbid obesity E66.01 [facility] [address] [place] [id number] [place] [id number] October, Abscess of left arm L02.414 [place] [address] [place] [id number] [address] [place] [address] October, Morbid obesity E66.01 ; Lida r depression F32.9 and Recurrent major depressive disorder, in partial remission F33.41 [place] [address] [facility] [id number][place] [id number] Sep, Benign essential hypertension I10 ; Morb id obesity E66.01 ; S/P gastric bypass Z98.84 ; Abscess L02.91 and Chronic bacterial conjunctivitis of left eye H10.402 [place] [address] [facility] [address] [id number], [place] [id number] Sep, Dental examination Z01.20 [facility] [address] [facility] [id number] [address] [place] [phone] Sep, Morbid obesity E66.01 ; Lida r depression F32.9 and Recurrent major depressive disorder, in partial remission F33.41 [place] [address] [facility] [id number] [address] [place] [phone] Jul, [facility] [address] [facility] [id number] [address] [place] [phone] Jul, Major depressive disorder, r ecurrent, moderate F33.1 [place] [address] [place] [id number] [address] [place] [phone] Jul, Major depressive disorder, r ecurrent, moderate F33.1 and Generalized anxiety disorder F41.[address] [id number], [place] [id number] Jul, Cough R05 [place] [address] [facility] [id number] [address] [place] [phone] 16 Jul, 2016 Morbid obesity E66.01 ; Lida r depression F32.9 and Recurrent major depressive disorder, in partial remission F33.[address] [place] [address] [id number], [place] [id number] Jul, [facility] [address] [id number], [place] [id number] Jul, [facility] [address] [address] [id number], [place] [id number] Jul, Gastroenteritis K52.9 and Cough R05 [place] [address] [facility] [address] [id number], [place] [id number] Jun, Acute bacterial conjunctivitis of left e ye H10.32 [place] [address] [facility] [id number] [address] [place] [phone] Jun, [place] [address] [facility] [id number] [address] [place] [phone] Jun, Recurrent major depressive d isorder, in partial remission F33.41 [place] [address] [facility] [id number] [address] [place] [phone] May, Major depression F32.9 and M orbid obesity E66.01 [place] [address] [facility] [id number] [address] [place] [phone] May, [place] [address] [id number], [place] [id number] May, Thrush B37.0 [place] [address] [facility] [id number] [address] [place] [phone] Apr, Major depressive disorder, r ecurrent, moderate F33.1 [place] [address] [facility] [id number] [address] [place] [phone] Apr, Insomnia G47.00 ; Major depr ession F32.9 and Recurrent major depressive disorder, in partial remission F33.41 [place] [address] [place] [id number] [address] [place] [phone] Apr, [place] [address] [facility] [id number] [address] [place] [phone] 02 Apr, 2016 Major depression F32.9 and R ecurrent major depressive disorder, in partial remission F33.41 [facility] [address] [id number], [place] [id number] Mar, Benign essential hypertension I10 ; Morb id obesity E66.01 ; Impacted cerumen of both ears H61.23 ; Laceration of finger of right hand, initial encounter S61.219A and Encounter for immunization Z23 [place] [address] [facility] [id number] [address] [place] [phone] Mar, [facility] [address] [facility] [id number] [address] [place] [phone] Mar, [facility] [address] [facility] [id number] [address] [place] [phone] Mar, [facility] [address] [id number], [place] [id number] Feb, Nausea R11.0 ; Blood in the stool K92.1 and Benign essential hypertension I10 [facility] [address] [facility] [id number] [address] [place] [phone] Feb, Major depression F32.9 and R ecurrent major depressive disorder, in partial remission F33.41 [facility] [address] [id number], [place] [id number] Feb, [facility] [address] [id number], [place] [id number] Feb, Recurrent major depressive disorder, in partial remission F33.41 [facility] [id number], [place] [id number] Jan, [facility] [address] [id number], [place] [id number] Jan, Benign essential hypertension I10 ; Robert a R60.9 and Hyperlipidemia, unspecified hyperlipidemia type E78.5 [facility] [address] [id number], [place] [id number] Jan, Recurrent major depressive disorder, in partial remission F33.41 [facility] [address] [id number] [place] [id number] Jan, [facility] [address] [id number], [place] [id number] Jan, [facility] [address] [id number], [place] [id number] Jan, [facility] [address] [facility] [id number] [address] [place] [phone] Jan, [facility] [address] [facility] [id number] [address] [place] [phone] Dec, [facility] [address] [facility] [id number] [address] [place] [phone] Nov, [facility] [address] [facility] [id number] [address] [place] [address] Nov, Major depression F32.9 [facility] [address] [place] [id number] [address] [place] [phone] Nov, [facility] [address] [facility] [id number] [address] [place] [phone] Nov, [place] [address] [address] Nov, Major depressive disorder, r ecurrent episode, mild F33.0 and Anxiety F41.[address] [place] [id number] [place] [address] [id number] Nov, [place] [id number] [place] [address] [id number] October, Left elbow pain M25.522 and Other season al allergic rhinitis J30.[address] [id number] [place] [address] [id number] October, [place] [address] [place] [id number] [address] [place] [phone] October, Major depressive disorder, r ecurrent, moderate F33.1 [place] [address] [facility] [id number] [address] [place] [phone] October, Major depression F32.9 [place] [address] [place] [id number] [address] [place] [phone] Sep, [place] or callus L84 and Onych omycosis B35.1 [place] [address] [facility] [id number] [address] [place] [id number] Sep, Major depressive disorder, r ecurrent, moderate F33.1 [place] [address] [facility] [id number] [address] [place] [phone] 18 Sep, 2015 Major depression F32.9 [facility] [address] [facility] [id number] [address] [place] [phone] Sep, Moderate episode of recurren t major depressive disorder F33.1 [facility] [id number] [place] [address] [id number] Sep, Muscle strain T14.8 [facility] [address] [facility] [id number] [address] [place] [phone] Aug, Major depression F32.9 [facility] [address] [facility] [id number] [address] [place] [address] Aug, Major depression F32.9 [facility] [address] [facility] [id number] [address] [place] [phone] Jul, Morbid obesity E66.01 and Ma cora depression F32.9 [facility] [address] [facility] [id number] [address] [place] [phone] Jul, Depression, major, recurrent , moderate F33.1 [facility] [address] [facility] [address] [id number], [place] [id number] Jul, [facility] [address] [facility] [id number] [address] [place] [phone] Jul, [facility] [address] [facility] [id number] [address] [place] [address] Jul, Major depression F32.9 and M orbid obesity E66.01 [facility] [id number] [place] [address] [id number] Jul, Type II diabetes mellitus E11.9 ; Callus of foot L84 ; Benign essential hypertension I10 and Renal insufficiency N28.9 [facility] [address] [facility] [id number] [address] [place] [phone] 09 Jul, 2015 Depression, major, recurrent , moderate F33.1 [place] [id number] [facility] [id number] [address] [place] [phone] 05 Jul, 2015 Major depression F32.9 [facility] [address] [facility] [id number] [address] [place] [address] Jul, [facility] [address] [facility] [id number] [address] [place] [address] Jun, Major depression F32.9 [facility] [address] [facility] [id number] [address] [place] [phone] Jun, Major depressive disorder, r ecurrent, moderate F33.1 [place] [address] [facility] [id number] [address] [place] [phone] Jun, [place] [address] [facility] [id number] [address] [place] [phone] Jun, Major depressive disorder, r ecurrent, moderate F33.1 and Major depression F32.9 [facility] [id number] [place] [address] [id number] Jun, Type II diabetes mellitus E11.9 [place] [address] [facility] [id number] [address] [place] [phone] Jun, Depression, major, recurrent , moderate F33.1 [place] [address] [facility] [id number] [address] [place] [phone] May, Major depressive disorder, r ecurrent, moderate F33.1 [place] [address] [facility] [id number] [address] [place] [phone] May, [facility] [id number] [place] [address] [id number] May, Edema R60.9 [facility] [address] [facility] [id number] [address] [place] [phone] May, Insomnia G47.00 and Major de pression F32.9 [facility] [id number] [place] [address] [id number] May, Morbid obesity E66.01 ; Edema R60.9 ; Sh ortness of breath R06.02 ; Benign essential hypertension I10 and Renal insufficiency N28.9 [facility] [address] [facility] [address] [id number], [place] [id number] May, Hyperlipemia 272.4 and Renal insufficien cy N28.9 [facility] [address] [facility] [id number] [address] [place] [phone] Apr, Major depression F32.9 [facility] [address] [facility] [id number] [address] [place] [id number] Apr, [facility] [address] [facility] [id number] [address] [place] [id number] Apr, Major depressive disorder, r ecurrent, moderate F33.[address] [id number] [id number] Apr, Type II diabetes mellitus E11.9 ; Benign essential hypertension I10 ; Edema R60.9 and Renal insufficiency N28.9 [facility] [address] [facility] [id number] [address] [place] [id number] Mar, Major depressive disorder, r ecurrent, moderate F33.1 [place] [address] [facility] [id number] [address] [place] [id number] Mar, [facility] [address] [facility] [id number] [address] [place] [phone] Mar, Major depression F32.9 [place] [id number] [place] [id number] Mar, Morbid obesity E66.01 ; Benign essential hypertension I10 and Type II diabetes mellitus E11.9 [facility] [address] [facility] [id number] [address] [place] [address] Feb, Major depressive disorder, r ecurrent, moderate F33.1 [place] [address] [facility] [id number] [address] [place] [address] Feb, Major depressive disorder, r ecurrent episode, in partial or unspecified remission 296.35 ; Anxiety state, unspecified 300.00 and Morbid obesity 278.01 [place] [address] [facility] [id number] [address] [place] [address] Feb, [facility] [address] [place] [address] AVE [id number] [id number] Feb, Vomiting 787.03 and Viral syndrome 079.9 9 [place] [address] [place] [id number] [address] [place] [address] 15 Feb, 2015 Major depression, recurrent 296.30 ; Generalized anxiety disorder 300.02 and No condition on [place] II V71.[address] [id number] [id number] Feb, Skin tag 701.[id number] [place] [address] Feb, [place] [address] [place] [id number] [address] [place] [address] Jan, Depression, major, recurrent , moderate 296.[address] [id number] [id number] Jan, Nausea and vomiting 787.01 ; Rib pain on right side 786.50 and Fall on or from sidewalk curb E880.1 [place] [address] [place] [id number] [address] [place] [address] Jan, [place] [address] [facility] [id number] [address] [place] [address] Jan, Major depressive disorder, r ecurrent episode, in partial or unspecified remission 296.35 and Anxiety state, unspecified 300.[address] [id number] [id number] Jan, [place] [address] [facility] [id number] [address] [place] [address] Jan, Depression, major, recurrent , moderate 296.32 [facility] [id number] [place] [address] Jan, Major depression, recurrent 296.30 ; No condition on [place] II V71.09 and No condition on axis III V71.09 [facility] [address] [id number] [id number] 13 Jan, 2015 Drug-induced nausea and vomiting 787.01 [facility] [address] [place] [id number] [address] [place] [address] Jan, Depression, major, recurrent , moderate 296.[address] [address] Dec, Depression, major, recurrent , moderate 296.32 [facility] [address] [id number] [id number] Dec, Morbid obesity 278.01 ; Metabolic syndro me 277.7 ; Hyperlipemia 272.4 ; Benign essential hypertension 401.1 ; Dietary counseling V65.3 ; Exercise counseling V65.41 and Inflamed skin tag 701.9 [place] [address] [address] Dec, Depression, major, recurrent , moderate 296.32 [place] [address] [place] [id number] [address] [place] [address] Dec, [place] [address] [address] Dec, Major depression, recurrent 296.30 ; Anxiety, generalized 300.02 and No condition on [place] II V71.09 [place] [address] [address] Dec, Depression, major, recurrent , moderate 296.32 [place] [address] [place] [id number] [address] [place] [address] Dec, Major depressive disorder, r ecurrent episode, moderate 296.32 [place] [address] [place] [id number] [place] [address] Dec, Depression, major, recurrent , moderate 296.32 [place] [address] [place] [address] Dec, Depression, major, recurrent , moderate 296.32 [place] [address] [address] Dec, Depression, major, recurrent , moderate 296.32 [place] [address] [place] [id number] Dec, Depression, major, recurrent , moderate 296.32 [place] [address] Nov, Depression, major, recurrent , moderate 296.[address] [address] Nov, Major depression 296.20 ; So cial phobia 300.23 and No condition on [place] II V71.09 [place] [address] [address] Nov, Depression, major, recurrent , moderate 296.32 [place] [address] [address] Nov, Major depressive disorder, r ecurrent episode, moderate 296.32 and Generalized anxiety disorder 300.02 [place] [address] [address] Nov, Depression, major, recurrent , moderate 296.32 [place] [address] [address] Nov, Depression, major, recurrent , moderate 296.32 [place] [address] [place] [id number] October, Generalized anxiety disorder 300.02 ; No condition on [place] II V71.09 and Major depressive disorder, recurrent 296.30 [facility] [address] [id number] [facility] [place] [address] 14 Sep, 2014 [facility] [address] [id number] [address] [place] [address], [place] [address] 13 Sep, 2014 [facility] [address] [id number] [facility] [place] [address] 24 Aug, 2014 [facility] [address] [id number] [address] [place] [address], [place] [address] 24 Aug, 2014 [facility] [address] [id number] [address] [place] [address], [place] [address] 23 Aug, 2014 [facility] [address] [id number] [address] [place] [address], [place] [address] 23 Aug, 2014 [facility] [address] [id number] [address] [place] [address], [place] [address] 20 Aug, 2014 [facility] [address] [id number] [address] [place] [address], [place] [address] 20 Aug, 2014 [facility] [address] [id number] [address] [place] [address], [place] [address] 20 Aug, 2014 [facility] [address] [id number] [address] [place] [address], [place] [address] 20 Aug, 2014 [facility] [address] [id number] [address] [place] [address], [place] [address] 13 Aug, 2014 [facility] [address] [id number] [address] [place] [address], [place] [address] 13 Aug, 2014 [facility] [address] [id number] [address] [place] [address], [place] [address] 13 Aug, 2014 [facility] [address] [id number] [address] [place] [address], [place] [address] 13 Aug, 2014 [facility] [address] [id number] [address] [place] [address], [place] [address] 12 Aug, 2014 [facility] [address] [id number] [address] [place] [address], [place] [address] Aug, [facility] [address] [id number] [address] [place] [address], [place] [address] Aug, [facility] [address] [id number] [address] [place] [address], [place] [address] Aug, [facility] [address] [id number] [address] [place] [address], [place] [address] Aug, [facility] [address] [id number] [address] [place] [address], [place] [address] Aug, [facility] [address] [id number] [address] [place] [address], [place] [address] Jul, [facility] [address] [id number] [address] [place] [address], [place] [address] Jul, [facility] [address] [id number] [address] [place] [address], [place] [address] Jul, [facility] [address] [id number] [address] [place] [address], [place] [address] Jul, [facility] [address] [id number] [address] [place] [address], [place] [address] Jul, [facility] [address] [id number] [address] [place] [address], [place] [address] Jul, [facility] [address] [id number] [address] [place] [address], [place] [address] Jun, [facility] [address] [id number] [address] [place] [address], [place] [address] Jun, [facility] [address] [id number] [address] [place] [address], [place] [address] Jun, [facility] [address] [id number] [address] [place] [address], [place] [address] Jun, [facility] [address] [id number] [address] [place] [address], [place] [address] Jun, [facility] [address] [id number] [address] [place] [address], [place] [address] Jun, [facility] [address] [id number] [address] [place] [address], [place] [address] Jun, [facility] [address] [id number] [address] [place] [address], [place] [address] Jun, [facility] [address] [id number] [address] [place] [address], [place] [address] Jun, [facility] [address] [id number] [address] [place] [address], [place] [address] Jun, [facility] [address] [id number] [address] [place] [address], [place] [address] Jun, [facility] [address] [id number] [address] [place] [address], [place] [address] Jun, [facility] [address] [id number] [place], [facility] [id number] Jun, [facility] [address] [id number] [address] [place] [address], [place] [address] Jun, [facility] [address] [id number] [address] [place] [address], [place] [address] Jun, [facility] [address] [id number] [address] [place] [address], [place] [address] Jun, [facility] [address] [id number] [address] [place] [address], [place] [address] May, [facility] [address] [id number] [address] [place] [address], [place] [address] May, [facility] [address] [id number] [address] [place] [address], [place] [address] May, [facility] [address] [id number] [address] [place] [address], [place] [address] May, [facility] [address] [id number] [address] [place] [address], [place] [address] Apr, [facility] [address] [id number] [address] [place] [address], [place] [address] Apr, [facility] [address] [id number] [address] [place] [address], [place] [address] Apr, [facility] [address] [id number] [address] [place] [address], [place] [address] Apr, [facility] [address] [id number] [address] [place] [address], [place] [address] Apr, [facility] [address] [id number] [address] [place] [address], [place] [address] Apr, [facility] [address] [id number] [address] [place] [address], [place] [address] Apr, [facility] [address] [id number] [address] [place] [address], [place] [address] Apr, [facility] [address] [id number] [address] [place] [address], [place] [address] Apr, [facility] [address] [id number] [address] [place] [address], [place] [address] Apr, [facility] [address] [id number] [address] [place] [address], [place] [address] Apr, [facility] [address] [id number] [address] [place] [address], [place] [address] Apr, [facility] [address] [id number] [address] [place] [address], [place] [address] Apr, [facility] [address] [id number] [address] [place] [address], [place] [address] Apr, [facility] [address] [id number] [address] [place] [address], [place] [address] Apr, [facility] [address] [id number] [address] [place] [address], [place] [address] Apr, [facility] [address] [id number] [address] [place] [address], [place] [address] Apr, [facility] [address] [id number] [address] [place] [address], [place] [address] Apr, [facility] [address] [id number] [address] [place] [address], [place] [address] Apr, [facility] [address] [id number] [address] [place] [address], [place] [address] Apr, [facility] [address] [id number] [address] [place] [address], [place] [address] Mar, [facility] [address] [id number] [address] [place] [address], [place] [address] Mar, [facility] [address] [id number] [address] [place] [address], [place] [address] Mar, [facility] [address] [id number] [address] [place] [address], [place] [address] Mar, [facility] [address] [id number] [address] [place] [address] Mar, [facility] [address] [id number] [address] [place] [address], [place] [address] Mar, [facility] [address] [id number] [address] [place] [address], [place] [address] Mar, [facility] [address] [id number] [address] [place] [address] Mar, [facility] [address] [id number] [address] [place] [address] Mar, [facility] [address] [id number] [address] [place] [address], [place] [address] Mar, [facility] [address] [id number] [address] [place] [address], [place] [address] Feb, [facility] [address] [id number] [address] [place] [address], [place] [address] Feb, [facility] [address] [id number] [facility] [place] [address] Feb, [facility] [address] [id number] [address] [place] [address], [place] [address] Feb, [facility] [address] [id number] [address] [place] [address], [place] [address] Jan, [facility] [address] [id number] [address] [place] [address], [place] [address] Jan, [facility] [address] [id number] [address] [place] [address], [place] [address] Jan, [facility] [address] [id number] [address] [place] [address], [place] [address] Jan, [facility] [address] [id number] [address] [place] [address], [place] [address] Jan, [facility] [address] [id number] [address] [place] [address], [place] [address] Jan, [facility] [address] [id number] [address] [place] [address], [place] [address] Dec, [facility] [address] [id number] [address] [place] [address], [place] [address] Dec, [facility] [address] [id number] [address] [place] [address], [place] [address] Nov, [facility] [address] [id number] [address] [place] [address], [place] [address] Nov, [facility] [address] [id number] [address] [place] [address], [place] [address] Nov, [facility] [address] [id number] [address] [place] [address], [place] [address] Nov, [facility] [address] [id number] [address] [place] [address], [place] [address] Nov, [facility] [address] [id number] [address] [place] [address], [place] [address] Nov, [facility] [address] [id number] [address] [place] [address], [place] [address] Sep, [facility] [address] [id number] [address] [place] [address], [place] [address] Sep, [facility] [address] [id number] [address] [place] [address], [place] [address] Sep, [facility] [address] [id number] [address] [place] [address], [place] [address] Sep, [facility] [address] [id number] [address] [place] [address], [place] [address] Aug, [facility] [address] [id number] [address] [place] [address], [place] [address] Aug, [facility] [address] [id number] [address] [place] [address], [place] [address] Jul, [facility] [address] [id number] [address] [place] [address], [place] [address] Jul, [facility] [address] [id number] [address] [place] [address], [place] [address] Jun, [facility] [address] [id number] [address] [place] [address], [place] [address] Jun, [facility] [address] [id number] [address] [place] [address], [place] [address] Jun, [facility] [address] [id number] [address] [place] [address], [place] [address] Jun, [facility] [address] [id number] [address] [place] [address], [place] [address] May, [facility] [address] [id number] [address] [place] [address], [place] [address] May, [facility] [address] [id number] [address] [place] [address], [place] [address] May, [facility] [address] [id number] [address] [place] [address] May, [facility] [address] [id number] [address] [place] [address], [place] [address] May, [facility] [address] [id number] [address] [place] [address], [place] [address] May, [facility] [address] [id number] [address] [place] [address], [place] [address] Apr, [facility] [address] [id number] [address] [place] [address], [place] [address] Apr, [facility] [address] [id number] [address] [place] [address], [place] [address] Apr, [facility] [address] [id number] [address] [place] [address], [place] [address] Apr, [facility] [address] [id number] [address] [place] [address], [place] [address] Mar, [facility] [address] [id number] [address] [place] [address], [place] [address] Mar, [facility] [address] [id number] [address] [place] [address], [place] [address] Mar, [facility] [address] [id number] [address] [place] [address], [place] [address] Mar, [facility] [address] [id number] [address] [place] [address] Feb, [facility] [address] [id number] [place] [id number] Jan, [facility] [address] [id number] [address] [place] [address], [place] [address] Jan, [facility] [address] [id number] [address] [place] [phone] Dec, [facility] [address] [id number] [address] [place] [phone] Dec, [facility] [address] [id number] [address] [place] [phone] Dec, [facility] [address] [id number] Kiesha ESCOBEDO S [id number] Dec, [facility] [address] [id number] [address] [place] [phone] Nov, [facility] [address] [id number] [address] [place] [phone] Nov, [facility] [address] [id number] [address] [place] [phone] Nov, [facility] [address] [id number] [address] [place] [phone] Nov, [facility] [address] [id number] [address] [place] [phone] Nov, [facility] [address] [facility] [id number] [address] [place] [phone] October, [facility] [address] [id number] [address] [place] [phone] October, [facility] [address] [id number] [address] [place] [phone] Aug, [facility] [address] [id number] [address] [place] [phone] Nov, IMMUNIZATIONS No Known Immunizations SOCIAL HISTORY Never Assessed REASON FOR VISIT Blood Pressure. needs more meds. 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 PLAN OF CARE Activity Details Follow Up 1 Week Reason:fasting labs/ 6 months BP/labs VITAL SIGNS Height 71.5 in 2018-01-16 Weight 360.1 lbs 2018-01-16 Temperature 96.2 degrees Fahrenheit 2018-01-16 Heart Rate 72 bpm 2018-01-16 Respiratory Rate 18 2018-01-16 Oximetry 99 % 2018-01-16 BMI 49.52 kg/m2 2018-01-16 Blood pressure systolic 132 mmHg 2018-01-16 Blood pressure diastolic 70 mmHg 2018-01-16 MEDICATIONS Medication Instructions Dosage Frequency Start Date End Date Duration S chandni Montelukast Sodium 10 MG TAKE 1 TABLET BY MOUTH ONCE DAILY 90 Active Viibryd 40 mg Orally Once a day 1 tablet with food 24h May, Active Vitamin D-3 1000 UNIT Orally Once a day 2 capsule 24h Active Centrum - Active Flovent HFA 110 mcg/act inhalation once per day 1-3 Puffs 1 time pe r day October, 0 Active Trazodone HCl 50 mg Orally Once a day- bedtime 1 tablet 13 Nov, 2016 Active Atenolol 100 mg Orally Once a day 1 tablet Once a day Orally 24h 90 days Active Omeprazole 40 mg Orally Once a day 1 tablet 24h 45 d ays Active Lasix 20 mg Orally Once a day as needed for swelling 1 tablet Active Baclofen 10 mg Orally Three times a day 1/2 tablet 8h Active Zofran 8 MG Orally Once a day 1 tablet 24h A ctive BusPIRone HCl 15 MG Orally Twice a day for anxiety 1 tablet 2016 Active Flonase 50 mcg/act nasally once per day 1 spray (50 mcg) in each nostril by intranasal route 2 times per day Nov, Active Ketoconazole 2 % Externally Once a day 1 application to affected area 24 h Active Lisinopril 40 mg Orally Once a day 1 tablet Once a day Orally 24h 90 days Active Cetirizine HCl 10 mg Orally Once a day 1 tablet 24h 90 Active Lamictal 25 MG Orally Once a day 2 tablet 24h Jun, Active RESULTS No Results [...] gastric sleeve Hospitalization History [facility] Trouble with left shoulder blade 08/2017
--- OUTSIDE RECORDS SUMMARY | 2019-11-29 09:25 | XMS REPORT ---
Author Author Curt Astorga Organization 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 9 Active 22608488 Problem Sciatica, right side M54.31 Active [id number] Problem Mixed obsessional thoughts and acts F42.2 Active 66790284 Problem Vitamin D deficiency E55.9 Active 95046586 Problem DANIELA (generalized anxiety disorder) F41.1 Active 83775920 Problem BMI 45.0-49.9, adult Z68.42 Active 251547128 Problem Hyperlipemia E78.5 Active 2038818 4 Problem Major depression F32.9 Active 370 870388 Problem Insomnia G47.00 Active 300390002 Problem Renal insufficiency N28.9 Active 272931406 Problem Edema R60.9 Active 331169414 Problem Morbid obesity E66.01 Active 03249 6002 Problem Callus of foot L84 Active 22620 1005 Problem Benign essential hypertension I10 Active 8116813 Problem Recurrent major depressive disorder, in partial remission F33.41 Active 20691636 ALLERGIES No Information ENCOUNTERS Encounter Location Date Diagnosis [facility] [address] [facility] [id number] [address] [place] [phone] Mar, [facility] [address] [facility] [id number] [address] [place] [id number] 28 Jan, 2018 Recurrent major depressive d isorder, in partial remission F33.41 ; Mixed obsessional thoughts and acts F42.2 and BMI 45.0-49.9, adult Z68.42 [facility] [address] [place] [address] [id number], [place] [id number] Jan, [facility] [address] [id number], [place] [id number] Jan, Benign essential hypertension I10 ; BMI 45.0-49.9, adult Z68.42 ; Metabolic syndrome E88.81 and Allergic rhinitis, unspecified seasonality, unspecified trigger J30.9 [facility] [address] [facility] [id number] [address] [place] [address] Dec, DANIELA (generalized anxiety dis order) F41.1 and Depressive disorder, not elsewhere classified F32.9 [facility] [address] [id number], [place] [id number] Dec, Recurrent major depressive disorder, in partial remission F33.41 [facility] [address] [id number], [place] [id number] Dec, [facility] [address] [id number], [place] [id number] Nov, [facility] [id number] [place] [address] [id number] Nov, Recurrent major depressive disorder, in partial remission F33.41 [facility] [address] [facility] [id number] [address] [place] [address] Nov, Recurrent major depressive d isorder, in partial remission F33.41 ; Mixed obsessional thoughts and acts F42.2 ; DANIELA (generalized anxiety disorder) F41.1 and BMI 45.0-49.9, adult Z68.42 [facility] [address] [id number], [place] [id number] Nov, [facility] [address] [id number], [place] [id number] Nov, Other conjunctivitis of both eyes H10.89 and Sciatica, right side M54.31 [facility] [address] [id number], [place] [id number] Nov, [facility] [address] [id number], [place] [id number] Nov, [facility] [address] [id number], [place] [id number] October, [facility] [address] [id number], [place] [id number] October, [facility] [address] [facility] [id number] [address] [place] [address] October, BMI 45.0-49.9, adult Z68.42 ; Mixed obsessional thoughts and acts F42.2 ; Recurrent major depressive disorder, in partial remission F33.41 and DANIELA (generalized anxiety disorder) F41.1 [facility] [address] [id number], [place] [id number] October, Benign essential hypertension I10 ; Morb id obesity E66.01 and BMI 45.0-49.9, adult Z68.42 [facility] [address] [id number], [place] [id number] Sep, [facility] [address] [id number], [place] [id number] Sep, [facility] [address] [id number], [place] [id number] Sep, [facility] [address] [id number], [place] [id number] Sep, Hospital discharge follow-up Z09 ; Aller gic rhinitis, unspecified seasonality, unspecified trigger J30.9 and Shortness of breath R06.02 [facility] [address] [id number], [place] [id number] Sep, Recurrent major depressive disorder, in partial remission F33.41 [facility] [address] [id number], [place] [id number] Aug, Irritable mood R45.4 [facility] [address] [facility] [id number] [address] [place] [address] Aug, [facility] [address] [id number], [place] [id number] Jul, Benign essential hypertension I10 ; Robert a R60.9 and Impacted cerumen of left ear H61.22 [facility] [address] [facility] [id number] [address] [place] [id number] 14 Jul, 2017 Major depression F32.9 ; Rec urrent major depressive disorder, in partial remission F33.41 and Anxiety F41.9 [place] [address] [facility] [id number] [address] [place] [address] Jun, Major depression F32.9 ; Rec urrent major depressive disorder, in partial remission F33.41 and Anxiety F41.[address] [place] [address] [id number], [place] [id number] Jun, Major depression F32.9 ; Morbid obesity E66.01 ; Irritable mood R45.4 ; Hand weakness R29.898 and Vitamin D deficiency E55.[address] [place] [address] [id number], [place] [id number] Jun, [place] [id number] [place] [address] [id number] May, Major depression F32.9 [place] [address] [facility] [id number] [address] [place] [address] May, Major depression F32.[address] [place] [id number] [place] [address] [id number] May, BMI 50.0-59.9, adult Z68.43 ; Major depr ession F32.9 ; Anxiety F41.9 ; Hypertrophic toenail L60.2 and Pain of left great toe M79.[address] [address] [id number], [place] [id number] May, Recurrent major depressive disorder, in partial remission F33.41 [place] [address] [facility] [id number] [address] [place] [address] Apr, [facility] [address] [id number], [place] [id number] Apr, [facility] [address] [facility] [id number] [address] [place] [address] Apr, Major depression F32.9 [facility] [address] [id number], [place] [id number] Apr, Severe episode of recurrent major depres sive disorder, without psychotic features F33.2 ; Anxiety F41.9 and Insomnia G47.00 [facility] [address] [id number], [place] [id number] Apr, [facility] [address] [facility] [id number] [address] [place] [address] Apr, [facility] [address] [id number], [place] [id number] Apr, [facility] [address] [id number], [place] [id number] Mar, [facility] [address] [id number], [place] [id number] Mar, Allergic conjunctivitis of both eyes H10 .13 [facility] [address] [facility] [id number] [address] [place] [address] Mar, Major depression F32.9 [facility] [address] [id number], [place] [id number] Mar, Metabolic syndrome E88.81 ; History of g astric bypass Z98.890 ; Benign essential hypertension I10 and Allergic conjunctivitis of both eyes H10.13 [facility] [address] [facility] [id number] [address] [place] [address] Mar, Major depression F32.9 [facility] [address] [id number], [place] [id number] Feb, [facility] [address] [facility] [id number] [address] [place] [address] Feb, Major depression F32.9 [facility] [address] [facility] [address] [id number], [place] [id number] Feb, Subacute maxillary sinusitis J01.00 and Bronchitis J40 [facility] [address] [facility] [id number] [address] [place] [address] Feb, Major depressive disorder, r ecurrent, moderate F33.1 [facility] [address] [id number], [place] [id number] Jan, [facility] [id number] [place] [address] [id number] Jan, Acute non-recurrent maxillary sinusitis J01.00 and Skin tag L91.8 [place] [address] [facility] [address] [id number] [place] [address] [id number] Jan, Cough R05 and Sinus congestion R09.81 [facility] [address] [place] [address] AVE [id number] [place] [address] [id number] Jan, [address] [id number] [place] [address] [id number] Jan, Benign essential hypertension I10 ; Hist ory of gastric bypass Z98.890 and Nausea and vomiting in adult R11.2 [place] [address] [place] [id number] [address] [place] [address] Jan, Major depressive disorder, r ecurrent, moderate F33.1 [facility] [address] [place] [id number] [address] [place] [address] Dec, Insomnia G47.00 ; Recurrent major depressive disorder, in partial remission F33.41 and Morbid obesity E66.01 [facility] [address] [facility] [address] [id number] [place] [address] [id number] Dec, [facility] [address] [id number], [place] [id number] Dec, Chronic bacterial conjunctivitis of left eye H10.402 [facility] [id number] [place] [address] [id number] Nov, [address] [id number], [place] [id number] Nov, Dental examination Z01.[id number] [place] [address] [id number] 23 Nov, 2016 Benign essential hypertension I10 ; Hist ory of gastric bypass Z98.890 and Nausea and vomiting in adult R11.2 [place] [address] [place] [id number] [address] [place] [address] 13 Nov, 2016 Major depressive disorder, r ecurrent, moderate F33.1 ; Generalized anxiety disorder F41.1 and Insomnia due to other mental disorder F51.05 [place] [id number] [address] [place] [phone] 12 Nov, 2016 Recurrent major depressive d isorder, in partial remission F33.41 ; Insomnia G47.00 and Morbid obesity E66.01 [facility] [address] [place] [id number] [place] [address] [id number] October, Abscess of left arm L02.[address] [place] [address] October, Morbid obesity E66.01 ; Lida r depression F32.9 and Recurrent major depressive disorder, in partial remission F33.[address] [id number], [place] [id number] Sep, Benign essential hypertension I10 ; Morb id obesity E66.01 ; S/P gastric bypass Z98.84 ; Abscess L02.91 and Chronic bacterial conjunctivitis of left eye H10.[id number] [place] [address] [id number] Sep, Dental examination Z01.20 [place] [address] [place] [id number] [address] [place] [address] Sep, Morbid obesity E66.01 ; Lida r depression F32.9 and Recurrent major depressive disorder, in partial remission F33.41 [place] [address] [facility] [id number] [address] [place] [phone] Jul, [facility] [address] [facility] [id number] [address] [place] [phone] Jul, Major depressive disorder, r ecurrent, moderate F33.1 [facility] [address] [facility] [id number] [address] [place] [phone] Jul, Major depressive disorder, r ecurrent, moderate F33.1 and Generalized anxiety disorder F41.1 [facility] [id number] [place] [address] [id number] Jul, Cough R05 [place] [address] [facility] [id number] [address] [place] [address] Jul, Morbid obesity E66.01 ; Lida r depression F32.9 and Recurrent major depressive disorder, in partial remission F33.41 [facility] [id number] [place] [address] [id number] Jul, [facility] [id number] [place] [address] [id number] Jul, [place] [id number] [place] [address] [id number] Jul, Gastroenteritis K52.[address] [facility] [id number] [place] [address] [id number] Jun, Acute bacterial conjunctivitis of left e ye H10.32 [facility] [address] [facility] [id number] [address] [place] [phone] Jun, [facility] [address] [facility] [id number] [address] [place] [address] Jun, Recurrent major depressive d isorder, in partial remission F33.41 [facility] [address] [facility] [id number] [address] [place] [address] May, Major depression F32.9 and M orbid obesity E66.01 [facility] [address] [facility] [id number] [address] [place] [phone] May, [place] [address] [facility] [address] [id number] [place] [address] [id number] May, Thrush B37.0 [facility] [address] [facility] [id number] [address] [place] [address] Apr, Major depressive disorder, r ecurrent, moderate F33.1 [facility] [address] [facility] [id number] [address] [place] [address] Apr, Insomnia G47.00 ; Major depr ession F32.9 and Recurrent major depressive disorder, in partial remission F33.41 [place] [address] [facility] [id number] [address] [place] [phone] Apr, [place] [address] [facility] [id number] [address] [place] [phone] 02 Apr, 2016 Major depression F32.9 and R ecurrent major depressive disorder, in partial remission F33.[address] [id number], [place] [id number] Mar, Benign essential hypertension I10 ; Morb id obesity E66.01 ; Impacted cerumen of both ears H61.23 ; Laceration of finger of right hand, initial encounter S61.219A and Encounter for immunization Z23 [facility] [address] [facility] [id number] [address] [place] [phone] 17 Mar, 2016 [facility] [address] [facility] [id number] [address] [place] [address] Mar, [place] [address] [facility] [id number] [address] [place] [address] Mar, [address] [id number], [place] [id number] 29 Feb, 2016 Nausea R11.0 ; Blood in the stool K92.1 and Benign essential hypertension I10 [place] [address] [facility] [id number] [address] [place] [address] Feb, Major depression F32.9 and R ecurrent major depressive disorder, in partial remission F33.[address] [facility] [address] [id number], [place] [id number] Feb, [facility] [address] [id number], [place] [id number] Feb, Recurrent major depressive disorder, in partial remission F33.[address] [facility] [address] [id number], [place] [id number] Jan, [facility] [address] [id number], [place] [id number] Jan, Benign essential hypertension I10 ; Robert a R60.9 and Hyperlipidemia, unspecified hyperlipidemia type E78.5 [facility] [address] [id number], [place] [id number] Jan, Recurrent major depressive disorder, in partial remission F33.41 [facility] [place] [address] [id number] [place] [id number] Jan, [facility] [address] [id number], [place] [id number] Jan, [facility] [address] [id number], [place] [id number] Jan, [facility] [address] [facility] [id number] [address] [place] [address] Jan, [facility] [address] [facility] [id number] [address] [place] [phone] Dec, [facility] [address] [facility] [id number] [address] [place] [phone] Nov, [facility] [address] [facility] [id number] [address] [place] [phone] Nov, Major depression F32.9 [facility] [address] [facility] [id number] [address] [place] [phone] Nov, [facility] [address] [facility] [id number] [address] [place] [phone] Nov, [place] [address] [facility] [id number] [address] [place] [phone] Nov, Major depressive disorder, r ecurrent episode, mild F33.[address] [facility] [address] [id number], [place] [id number] Nov, [facility] [id number] [place] [address] [id number] October, Left elbow pain M25.522 and Other season al allergic rhinitis J30.2 [facility] [address] [facility] [address] [id number] [place] [address] [id number] October, [place] [address] [facility] [id number] [address] [place] [address] October, Major depressive disorder, r ecurrent, moderate F33.1 [place] [address] [facility] [id number] [address] [place] [phone] October, Major depression F32.9 [place] [address] [facility] [id number] [address] [place] [phone] Sep, Morral or callus L84 and Onych omycosis B35.1 [place] [address] [place] [id number] [address] [place] [address] Sep, Major depressive disorder, r ecurrent, moderate F33.1 [place] [address] [facility] [id number] [address] [place] [address] Sep, Major depression F32.9 [place] [address] [facility] [id number] [address] [place] [address] Sep, Moderate episode of recurren t major depressive disorder F33.1 [facility] [address] [id number], [place] [id number] Sep, Muscle strain T14.8 [place] [address] [facility] [id number] [address] [place] [address] Aug, Major depression F32.9 [facility] [address] [facility] [id number] [address] [place] [phone] Aug, Major depression F32.9 [facility] [address] [facility] [id number] [address] [place] [phone] Jul, Morbid obesity E66.01 and Ma cora depression F32.9 [facility] [address] [facility] [id number] [address] [place] [address] Jul, Depression, major, recurrent , moderate F33.[id number] [place] [address] [id number] Jul, [facility] [address] [facility] [id number] [address] [place] [phone] Jul, [facility] [address] [place] [id number] [address] [place] [address] Jul, Major depression F32.9 and M orbid obesity E66.[id number] [place] [address] [id number] Jul, Type II diabetes mellitus E11.9 ; Callus of foot L84 ; Benign essential hypertension I10 and Renal insufficiency N28.9 [facility] [address] [facility] [id number] [address] [place] [phone] 09 Jul, 2015 Depression, major, recurrent , moderate F33.1 [facility] [address] [facility] [id number] [address] [place] [phone] 05 Jul, 2015 Major depression F32.9 [facility] [address] [place] [id number] [address] [place] [address] Jul, [facility] [address] [facility] [id number] [address] [place] [address] Jun, Major depression F32.9 [facility] [address] [place] [id number] [address] [place] [phone] Jun, Major depressive disorder, r ecurrent, moderate F33.1 [facility] [address] [facility] [id number] [address] [place], [place] [id number] Jun, [facility] [address] [facility] [id number] [address] [place], [place] [id number] Jun, Major depressive disorder, r ecurrent, moderate F33.1 and Major depression F32.[address] [place] [id number] [place] [id number] Jun, Type II diabetes mellitus E11.9 [place] [address] [address] [facility] [id number] [address] [place], [place] [id number] Jun, Depression, major, recurrent , moderate F33.1 [place] [address] [address] [facility] [id number] [address] [place] [id number] May, Major depressive disorder, r ecurrent, moderate F33.1 [place] [address] [address] [place] [id number] [address] [place] [id number] May, [id number] [place] [address] [id number] May, Edema R60.9 [place] [address] [address] [place] [id number] [address] [place] [id number] 17 May, 2015 Insomnia G47.00 and Major de pression F32.[address] [place] [id number] [place] [address] [id number] 15 May, 2015 Morbid obesity E66.01 ; Edema R60.9 ; Sh ortness of breath R06.02 ; Benign essential hypertension I10 and Renal insufficiency N28.[address] [place] [id number] [place] [address] [id number] 14 May, 2015 Hyperlipemia 272.4 and Renal insufficien cy N28.9 [place] [address] [facility] [id number] [address] [place] [id number] Apr, Major depression F32.9 [place] [address] [address] [facility] [id number] [address] [place] [id number] Apr, [place] [address] [address] [facility] [id number] [address] [place] [phone] Apr, Major depressive disorder, r ecurrent, moderate F33.1 [facility] [address] [id number] [id number] Apr, Type II diabetes mellitus E11.9 ; Benign essential hypertension I10 ; Edema R60.9 and Renal insufficiency N28.9 [place] [place] [address] [address] [facility] [id number] [address] [place] [address] Mar, Major depressive disorder, r ecurrent, moderate F33.1 [place] [address] [address] [facility] [id number] [address] [place] [address] Mar, [place] [address] [address] [facility] [id number] [address] [place] [address] Mar, Major depression F32.9 [facility] [address] [id number] [id number] Mar, Morbid obesity E66.01 ; Benign essential hypertension I10 and Type II diabetes mellitus E11.9 [place] [address] [address] [facility] [id number] [address] [place] [address] Feb, Major depressive disorder, r ecurrent, moderate F33.1 [place] [address] [address] [facility] [id number] [address] [place] [address] Feb, Major depressive disorder, r ecurrent episode, in partial or unspecified remission 296.35 ; Anxiety state, unspecified 300.00 and Morbid obesity 278.01 [place] [address] [address] [facility] [id number] [address] [place] [address] Feb, [facility] [address] [id number] [id number] Feb, Vomiting 787.03 and Viral syndrome 079.9 9 [place] [address] [address] [facility] [id number] [address] [place] [address] Feb, Major depression, recurrent 296.30 ; Generalized anxiety disorder 300.02 and No condition on Mineral II V71.09 [facility] [address] [place] [address] AVE [id number][place] [id number] Feb, Skin tag 701.9 [facility] [address] [facility] [id number] [address] [place] [address] Feb, [facility] [address] [place] [id number] [address] [place] [address] Jan, Depression, major, recurrent , moderate 296.[id number] [place] [id number] Jan, Nausea and vomiting 787.01 ; Rib pain on right side 786.50 and Fall on or from sidewalk curb E880.1 [facility] [address] [place] [id number] [address] [place] [address] Jan, [facility] [address] [place] [id number] [address] [place] [address] Jan, Major depressive disorder, r ecurrent episode, in partial or unspecified remission 296.35 and Anxiety state, unspecified 300.00 [facility] [address] [place] [address] [id number] [id number] Jan, [facility] [address] [facility] [id number] [address] [place] [address] Jan, Depression, major, recurrent , moderate 296.32 [facility] [address] [facility] [id number] [address] [place] [address] Jan, Major depression, recurrent 296.30 ; No condition on Mineral II V71.09 and No condition on axis III V71.09 [facility] [address] [place], [place] [address] [id number][place] [id number] Jan, Drug-induced nausea and vomiting 787.01 [facility] [address] [place] [id number] [address] [place] [address] Jan, Depression, major, recurrent , moderate 296.32 [facility] [address] [facility] [id number] [address] [place] [address] Dec, Depression, major, recurrent , moderate 296.32 [facility] [address] [id number] [id number] Dec, Morbid obesity 278.01 ; Metabolic syndro me 277.7 ; Hyperlipemia 272.4 ; Benign essential hypertension 401.1 ; Dietary counseling V65.3 ; Exercise counseling V65.41 and Inflamed skin tag 701.9 [place] [address] [address] [place] [id number] [address] [place] [address] Dec, Depression, major, recurrent , moderate 296.32 [place] [address] [address] Dec, [place] [address] [address] Dec, Major depression, recurrent 296.30 ; Anxiety, generalized 300.02 and No condition on Mineral II V71.09 [place] [address] [address] Dec, Depression, major, recurrent , moderate 296.32 [place] [address] [address] [place] [id number] [address] [place] [address] Dec, Major depressive disorder, r ecurrent episode, moderate 296.32 [place] [id number] [place] [address] Dec, Depression, major, recurrent , moderate 296.32 [place] [address] [address] [place] [id number] [address] [place] [address] Dec, Depression, major, recurrent , moderate 296.32 [place] [address] [address] [place] [id number] [address] [place] [address] Dec, Depression, major, recurrent , moderate 296.32 [place] [address] [address] [place] [id number] [address] [place] [address] Dec, Depression, major, recurrent , moderate 296.32 [facility] [address] [address] Nov, Depression, major, recurrent , moderate 296.32 [facility] [address] [address] Nov, Major depression 296.20 ; So cial phobia 300.23 and No condition on Mineral II V71.09 [facility] [address] [address] Nov, Depression, major, recurrent , moderate 296.32 [place] [address] [address] Nov, Major depressive disorder, r ecurrent episode, moderate 296.32 and Generalized anxiety disorder 300.02 [place] [address] [address] Nov, Depression, major, recurrent , moderate 296.32 [facility] [address] [address] Nov, Depression, major, recurrent , moderate 296.32 [facility] [address] [address] October, Generalized anxiety disorder 300.02 ; No condition on Mineral II V71.09 and Major depressive disorder, recurrent 296.30 [facility] [address] [address] Sep, [facility] [address] [address] Sep, [place] [address] [address] Aug, [facility] [address] [address] Aug, [facility] [address] [place] [address] 23 Aug, 2014 [facility] [address] [id number] [address] [place] [address], [place] [address] 23 Aug, 2014 [facility] [address] [id number] [address] [place] [address], [place] [address] 20 Aug, 2014 [facility] [address] [id number] [address] [place] [address], [place] [address] 20 Aug, 2014 [facility] [address] [id number] [address] [place] [address], [place] [address] 20 Aug, 2014 [facility] [address] [id number] [address] [place] [address], [place] [address] 20 Aug, 2014 [facility] [address] [id number] [address] [place] [address], [place] [address] 13 Aug, 2014 [facility] [address] [id number] [address] [place] [address], [place] [address] 13 Aug, 2014 [facility] [address] [id number] [address] [place] [address], [place] [address] 13 Aug, 2014 [facility] [address] [id number] [address] [place] [address], [place] [address] 13 Aug, 2014 [facility] [address] [id number] [address] [place] [address], [place] [address] 12 Aug, 2014 [facility] [address] [id number] [address] [place] [address], [place] [address] 12 Aug, 2014 [facility] [address] [id number] [address] [place] [address], [place] [address] 10 Aug, 2014 [facility] [address] [id number] [address] [place] [address], [place] [address] 10 Aug, 2014 [facility] [address] [id number] [address] [place] [address], [place] [address] 09 Aug, 2014 [facility] [address] [id number] [address] [place] [address], [place] [address] 09 Aug, 2014 [facility] [address] [id number] [address] [place] [address], [place] [address] Jul, [facility] [address] [id number] [address] [place] [address], [place] [address] Jul, [facility] [address] [id number] [address] [place] [address], [place] [address] Jul, [facility] [address] [id number] [address] [place] [address], [place] [address] Jul, [facility] [address] [id number] [address] [place] [address], [place] [address] Jul, [facility] [address] [id number] [address] [place] [address], [place] [address] Jul, [facility] [address] [id number] [address] [place] [address], [place] [address] Jun, [facility] [address] [id number] [address] [place] [address], [place] [address] Jun, [facility] [address] [id number] [address] [place] [address], [place] [address] Jun, [facility] [address] [id number] [address] [place] [address], [place] [address] Jun, [facility] [address] [id number] [address] [place] [address], [place] [address] Jun, [facility] [address] [id number] [address] [place] [address], [place] [address] Jun, [facility] [address] [id number] [address] [place] [address], [place] [address] Jun, [facility] [address] [id number] [address] [place] [address], [place] [address] Jun, [facility] [address] [id number] [address] [place] [address], [place] [address] Jun, [facility] [address] [id number] [address] [place] [address] [place] [address] Jun, [facility] [address] [id number] [address] [place] [address], [place] [address] Jun, [facility] [address] [id number] [address] [place] [address], [place] [address] Jun, [facility] [address] [id number] [place] [id number] Jun, [facility] [address] [id number] [address] [place] [address], [place] [address] Jun, [facility] [address] [id number] [address] [place] [address], [place] [address] Jun, [facility] [address] [id number] [address] [place] [address], [place] [address] Jun, [facility] [address] [id number] [address] [place] [address], [place] [address] May, [facility] [address] [id number] [address] [place] [address], [place] [address] May, [facility] [address] [id number] [address] [place] [address], [place] [address] May, [facility] [address] [id number] [address] [place] [address], [place] [address] May, [facility] [address] [id number] [address] [place] [address], [place] [address] Apr, [facility] [address] [id number] [address] [place] [address], [place] [address] Apr, [facility] [address] [id number] [address] [place] [address], [place] [address] Apr, [facility] [address] [id number] [address] [place] [address], [place] [address] Apr, [facility] [address] [id number] [address] [place] [address], [place] [address] Apr, [facility] [address] [id number] [address] [place] [address], [place] [address] Apr, [facility] [address] [id number] [address] [place] [address], [place] [address] Apr, [facility] [address] [id number] [address] [place] [address], [place] [address] Apr, [facility] [address] [id number] [address] [place] [address], [place] [address] Apr, [facility] [address] [id number] [address] [place] [address], [place] [address] Apr, [facility] [address] [id number] [address] [place] [address], [place] [address] Apr, [facility] [address] [id number] [address] [place] [address], [place] [address] Apr, [facility] [address] [id number] [address] [place] [address], [place] [address] Apr, [facility] [address] [id number] [address] [place] [address], [place] [address] Apr, [facility] [address] [id number] [address] [place] [address], [place] [address] Apr, [facility] [address] [id number] [address] [place] [address], [place] [address] Apr, [facility] [address] [id number] [address] [place] [address], [place] [address] Apr, [facility] [address] [id number] [address] [place] [address], [place] [address] Apr, [facility] [address] [id number] [address] [place] [address], [place] [address] Apr, [facility] [address] [id number] [address] [place] [address], [place] [address] Apr, [facility] [address] [id number] [address] [place] [address], [place] [address] Mar, [facility] [address] [id number] [address] [place] [address], [place] [address] Mar, [facility] [address] [id number] [address] [place] [address], [place] [address] Mar, [facility] [address] [id number] [address] [place] [address], [place] [address] Mar, [facility] [address] [id number] [address] [place] [address], [place] [address] Mar, [facility] [address] [id number] [address] [place] [address], [place] [address] Mar, [facility] [address] [id number] [address] [place] [address], [place] [address] Mar, [facility] [address] [id number] [address] [place] [address], [place] [address] Mar, [facility] [address] [id number] [address] [place] [address], [place] [address] Mar, [facility] [address] [id number] [address] [place] [address], [place] [address] Mar, [facility] [address] [id number] [address] [place] [address], [place] [address] Feb, [facility] [address] [id number] [address] [place] [address], [place] [address] Feb, [facility] [address] [id number] [address] [place] [address], [place] [address] Feb, [facility] [address] [id number] [address] [place] [address], [place] [address] Feb, [facility] [address] [id number] [address] [place] [address], [place] [address] Jan, [facility] [address] [id number] [address] [place] [address], [place] [address] Jan, [facility] [address] [id number] [address] [place] [address] [place] [address] Jan, [facility] [address] [id number] [address] [place] [address], [place] [address] Jan, [facility] [address] [id number] [address] [place] [address], [place] [address] Jan, [facility] [address] [id number] [address] [place] [address], [place] [address] Jan, [facility] [address] [id number] [address] [place] [address], [place] [address] Dec, [facility] [address] [id number] [address] [place] [address], [place] [address] Dec, [facility] [address] [id number] [address] [place] [address], [place] [address] Nov, [facility] [address] [id number] [address] [place] [address], [place] [address] Nov, [facility] [address] [id number] [address] [place] [address], [place] [address] Nov, [facility] [address] [id number] [address] [place] [address], [place] [address] Nov, [facility] [address] [id number] [address] [place] [address], [place] [address] Nov, [facility] [address] [id number] [address] [place] [address], [place] [address] Nov, [facility] [address] [id number] [address] [place] [address], [place] [address] Sep, [facility] [address] [id number] [address] [place] [address], [place] [address] Sep, [facility] [address] [id number] [address] [place] [address], [place] [address] Sep, [facility] [address] [id number] [address] [place] [address], [place] [address] Sep, [facility] [address] [id number] [address] [place] [address], [place] [address] Aug, [facility] [address] [id number] [address] [place] [address], [place] [address] Aug, [facility] [address] [id number] [address] [place] [address], [place] [address] Jul, [facility] [address] [id number] [address] [place] [address], [place] [address] Jul, [facility] [address] [id number] [address] [place] [address], [place] [address] Jun, [facility] [address] [id number] [address] [place] [address], [place] [address] Jun, [facility] [address] [id number] [address] [place] [address], [place] [address] Jun, [facility] [address] [id number] [address] [place] [address], [place] [address] Jun, [facility] [address] [id number] [address] [place] [address], [place] [address] May, [facility] [address] [id number] [address] [place] [address], [place] [address] May, [facility] [address] [id number] [address] [place] [address], [place] [address] May, [facility] [address] [id number] [address] [place] [address], [place] [address] May, [facility] [address] [id number] [address] [place] [address], [place] [address] May, [facility] [address] [id number] [address] [place] [address], [place] [address] May, [facility] [address] [id number] [address] [place] [address], [place] [address] Apr, [facility] [address] [id number] [place] [address] Apr, [facility] [address] [id number] [address] [place] [address], [place] [address] Apr, [facility] [address] [id number] [address] [place] [address], [place] [address] Apr, [facility] [address] [id number] [address] [place] [address], [place] [address] Mar, [facility] [address] [id number] [address] [place] [address] Mar, [facility] [address] [id number] [address] [place] [address], [place] [address] Mar, [facility] [address] [id number] [address] [place] [address] Mar, [facility] [address] [id number] [address] [place] [address] Feb, [facility] [address] [id number] [place] [id number] Jan, [facility] [address] [id number] [address] [place] [id number] Jan, [facility] [address] [id number] [address] [place] [id number] Dec, [facility] [address] [id number] [address] [place] [id number] Dec, [facility] [address] [id number] [address] [place] [phone] Dec, [facility] [address] [id number] [place] [id number] Dec, [facility] [address] [id number] [address] [place] [phone] Nov, [facility] [address] [id number] [address] [place] [id number] 14 Nov, 2012 [facility] [address] [id number] [address] [place] [id number] 12 Nov, 2012 [facility] [address] [facility] [id number] [address] [place] [id number] Nov, [facility] [address] [facility] [id number] [address] [place] [id number] Nov, [facility] [address] [facility] [id number] [address] [place] [phone] October, [facility] [address] [facility] [id number] [address] [place] [id number] October, [facility] [address] [facility] [id number] [address] [place] [id number] Aug, [facility] [address] [facility] [id number] [address] [place] [id number] 13 Nov, 2011 IMMUNIZATIONS No Known Immunizations SOCIAL HISTORY Never Assessed REASON FOR VISIT f/u PLAN OF CARE Activity Details Follow Up Next available Reason: VITAL SIGNS MEDICATIONS Unknown Medications RESULTS No Results PROCEDURES Procedure Date Ordered Result Body Site Psychotherapy, patient &/family, 30 minutes, established pat ient December 21, 2017 INSTRUCTIONS MEDICATIONS ADMINISTERED No Known Medications MEDICAL [...] 03/2016 Hospitalization History gastric sleeve Hospitalization History [facility] Trouble with left shoulder blade 08/2017
--- OUTSIDE RECORDS SUMMARY | 2019-11-29 09:25 | XMS REPORT ---
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 9 Active 75594953 Problem Sciatica, right side M54.31 Active [id number] Problem Mixed obsessional thoughts and acts F42.2 Active 73639225 Problem Vitamin D deficiency E55.9 Active 58359639 Problem DANIELA (generalized anxiety disorder) F41.1 Active 64005933 Problem BMI 45.0-49.9, adult Z68.42 Active 787534793 Problem Hyperlipemia E78.5 Active 1643235 4 Problem Major depression F32.9 Active 370 199483 Problem Insomnia G47.00 Active 598224997 Problem Renal insufficiency N28.9 Active 453220833 Problem Edema R60.9 Active 495899575 Problem Morbid obesity E66.01 Active 84758 6002 Problem Callus of foot L84 Active 52056 1005 Problem Benign essential hypertension I10 Active 2782720 Problem Recurrent major depressive disorder, in partial remission F33.41 Active 64022739 ALLERGIES No Information ENCOUNTERS Encounter Location Date Diagnosis [facility] [address] [facility] [id number] [address] [place] [phone] Mar, [facility] [address] [facility] [id number] [address] [place] [id number] 28 Jan, 2018 Recurrent major depressive d isorder, in partial remission F33.41 ; Mixed obsessional thoughts and acts F42.2 and BMI 45.0-49.9, adult Z68.42 [facility] [address] [place] [address] [id number], [place] [id number] Jan, [facility] [address] [id number], [place] [id number] Jan, Benign essential hypertension I10 ; BMI 45.0-49.9, adult Z68.42 ; Metabolic syndrome E88.81 and Allergic rhinitis, unspecified seasonality, unspecified trigger J30.9 [facility] [address] [facility] [id number] [address] [place] [id number] Dec, DANIELA (generalized anxiety dis order) F41.1 and Depressive disorder, not elsewhere classified F32.9 [facility] [facility] [address] [id number], [place] [id number] Dec, Recurrent major depressive disorder, in partial remission F33.41 [facility] [address] [id number], [place] [id number] Dec, [facility] [address] [id number], [place] [id number] Nov, [facility] [id number] [place] [address] [id number] Nov, Recurrent major depressive disorder, in partial remission F33.41 [facility] [address] [facility] [id number] [address] [place] [phone] Nov, Recurrent major depressive d isorder, in partial remission F33.41 ; Mixed obsessional thoughts and acts F42.2 ; DANIELA (generalized anxiety disorder) F41.1 and BMI 45.0-49.9, adult Z68.42 [facility] [address] [id number], [place] [id number] Nov, [facility] [address] [id number], [place] [id number] Nov, Other conjunctivitis of both eyes H10.89 and Sciatica, right side M54.31 [facility] [address] [id number], [place] [id number] Nov, [facility] [address] [id number], [place] [id number] Nov, [facility] [address] [id number], [place] [id number] October, [facility] [address] [id number], [place] [id number] October, [facility] [address] [facility] [id number] [address] [place] [id number] October, BMI 45.0-49.9, adult Z68.42 ; Mixed obsessional thoughts and acts F42.2 ; Recurrent major depressive disorder, in partial remission F33.41 and DANIELA (generalized anxiety disorder) F41.[address] [facility] [address] [id number], [place] [id number] October, Benign essential hypertension I10 ; Morb id obesity E66.01 and BMI 45.0-49.9, adult Z68.[address] [facility] [address] [id number], [place] [id number] Sep, [facility] [address] [id number], [place] [id number] Sep, [facility] [address] [id number], [place] [id number] Sep, [facility] [address] [id number], [place] [id number] Sep, Hospital discharge follow-up Z09 ; Aller gic rhinitis, unspecified seasonality, unspecified trigger J30.9 and Shortness of breath R06.02 [facility] [address] [id number], [place] [id number] Sep, Recurrent major depressive disorder, in partial remission F33.41 [facility] [address] [id number], [place] [id number] Aug, Irritable mood R45.4 [facility] [address] [facility] [id number] [address] [place] [phone] Aug, [facility] [address] [id number], [place] [id number] Jul, Benign essential hypertension I10 ; Robert a R60.9 and Impacted cerumen of left ear H61.22 [facility] [address] [facility] [id number] [address] [place] [id number] 14 Jul, 2017 Major depression F32.9 ; Rec urrent major depressive disorder, in partial remission F33.41 and Anxiety F41.9 [place] [address] [facility] [id number] [address] [place] [phone] Jun, Major depression F32.9 ; Rec urrent major depressive disorder, in partial remission F33.41 and Anxiety F41.[address] [place] [address] [id number], [place] [id number] Jun, Major depression F32.9 ; Morbid obesity E66.01 ; Irritable mood R45.4 ; Hand weakness R29.898 and Vitamin D deficiency E55.[address] [place] [address] [id number], [place] [id number] Jun, [place] [id number] [place] [address] [id number] May, Major depression F32.9 [place] [address] [facility] [id number] [address] [place] [phone] May, Major depression F32.[address] [place] [id number] [place] [address] [id number] May, BMI 50.0-59.9, adult Z68.43 ; Major depr ession F32.9 ; Anxiety F41.9 ; Hypertrophic toenail L60.2 and Pain of left great toe M79.[address] [place] [address] [id number], [place] [id number] May, Recurrent major depressive disorder, in partial remission F33.41 [place] [address] [facility] [id number] [address] [place] [phone] Apr, [facility] [address] [address] [id number], [place] [id number] Apr, [facility] [address] [facility] [id number] [address] [place] [address] Apr, Major depression F32.9 [facility] [address] [id number], [place] [id number] Apr, Severe episode of recurrent major depres sive disorder, without psychotic features F33.2 ; Anxiety F41.9 and Insomnia G47.00 [facility] [address] [id number], [place] [id number] Apr, [facility] [address] [facility] [id number] [address] [place] [phone] Apr, [facility] [address] [id number], [place] [id number] Apr, [facility] [address] [id number], [place] [id number] Mar, [facility] [address] [id number], [place] [id number] Mar, Allergic conjunctivitis of both eyes H10 .13 [facility] [address] [facility] [id number] [address] [place] [address] Mar, Major depression F32.9 [facility] [address] [address] [id number], [place] [id number] Mar, Metabolic syndrome E88.81 ; History of g astric bypass Z98.890 ; Benign essential hypertension I10 and Allergic conjunctivitis of both eyes H10.13 [facility] [address] [facility] [id number] [address] [place] [address] Mar, Major depression F32.9 [facility] [address] [id number], [place] [id number] Feb, [facility] [address] [facility] [id number] [address] [place] [address] Feb, Major depression F32.9 [facility] [address] [facility] [address] [id number], [place] [id number] Feb, Subacute maxillary sinusitis J01.00 and Bronchitis J40 [facility] [address] [facility] [id number] [address] [place] [phone] Feb, Major depressive disorder, r ecurrent, moderate F33.1 [facility] [facility] [address] [id number], [place] [id number] Jan, [facility] [facility] [id number] [place] [address] [id number] Jan, Acute non-recurrent maxillary sinusitis J01.00 and Skin tag L91.8 [place] [address] [facility] [address] [id number] [place] [address] [id number] Jan, Cough R05 and Sinus congestion R09.81 [facility] [address] [place] [address] A[id number] [place] [address] [id number] Jan, [id number] [place] [address] [id number] Jan, Benign essential hypertension I10 ; Hist ory of gastric bypass Z98.890 and Nausea and vomiting in adult R11.2 [place] [address] [place] [id number] [address] [place] [address] Jan, Major depressive disorder, r ecurrent, moderate F33.1 [facility] [address] [place] [id number] [address] [place] [address] Dec, Insomnia G47.00 ; Recurrent major depressive disorder, in partial remission F33.41 and Morbid obesity E66.01 [facility] [address] [facility] [id number] [place] [address] [id number] Dec, [facility] [facility] [address] [id number], [place] [id number] Dec, Chronic bacterial conjunctivitis of left eye H10.402 [facility] [id number] [place] [address] [id number] Nov, [address] [id number], [place] [id number] Nov, Dental examination Z01.20 [id number] [place] [address] [id number] 23 Nov, 2016 Benign essential hypertension I10 ; Hist ory of gastric bypass Z98.890 and Nausea and vomiting in adult R11.2 [place] [address] [place] [id number] [address] [place] [phone] 13 Nov, 2016 Major depressive disorder, r ecurrent, moderate F33.1 ; Generalized anxiety disorder F41.1 and Insomnia due to other mental disorder F51.05 [place] [id number] [place] [id number] 12 Nov, 2016 Recurrent major depressive d isorder, in partial remission F33.41 ; Insomnia G47.00 and Morbid obesity E66.01 [facility] [address] [place] [id number] [place] [address] [id number] October, Abscess of left arm L02.414 [address] [place] [id number] October, Morbid obesity E66.01 ; Lida r depression F32.9 and Recurrent major depressive disorder, in partial remission F33.[address] [id number], [place] [id number] Sep, Benign essential hypertension I10 ; Morb id obesity E66.01 ; S/P gastric bypass Z98.84 ; Abscess L02.91 and Chronic bacterial conjunctivitis of left eye H10.[id number] [place] [address] [id number] Sep, Dental examination Z01.20 [place] [address] [place] [id number] [address] [place] [phone] Sep, Morbid obesity E66.01 ; Lida r depression F32.9 and Recurrent major depressive disorder, in partial remission F33.41 [place] [address] [facility] [id number] [address] [place] [phone] Jul, [facility] [address] [facility] [id number] [address] [place] [id number] Jul, Major depressive disorder, r ecurrent, moderate F33.1 [facility] [address] [facility] [id number] [address] [place] [phone] Jul, Major depressive disorder, r ecurrent, moderate F33.1 and Generalized anxiety disorder F41.[address] [facility] [id number] [place] [address] [id number] Jul, Cough R05 [place] [address] [facility] [id number] [address] [place] [phone] Jul, Morbid obesity E66.01 ; Lida r depression F32.9 and Recurrent major depressive disorder, in partial remission F33.41 [facility] [id number] [place] [address] [id number] Jul, [facility] [facility] [id number] [place] [address] [id number] Jul, [place] [id number] [place] [address] [id number] Jul, Gastroenteritis K52.9 and Cough R05 [facility] [id number] [place] [address] [id number] Jun, Acute bacterial conjunctivitis of left e ye H10.32 [facility] [address] [facility] [id number] [address] [place] [phone] Jun, [facility] [address] [facility] [id number] [address] [place] [phone] Jun, Recurrent major depressive d isorder, in partial remission F33.41 [facility] [address] [facility] [id number] [address] [place] [phone] May, Major depression F32.9 and M orbid obesity E66.01 [facility] [address] [facility] [id number] [address] [place] [phone] May, [place] [address] [facility] [id number] [place] [address] [id number] May, Thrush B37.0 [facility] [address] [facility] [id number] [address] [place] [id number] Apr, Major depressive disorder, r ecurrent, moderate F33.1 [facility] [address] [facility] [id number] [address] [place] [phone] Apr, Insomnia G47.00 ; Major depr ession F32.9 and Recurrent major depressive disorder, in partial remission F33.41 [place] [address] [facility] [id number] [address] [place] [phone] Apr, [place] [address] [facility] [id number] [address] [place] [phone] 02 Apr, 2016 Major depression F32.9 and R ecurrent major depressive disorder, in partial remission F33.[address] [id number], [place] [id number] Mar, Benign essential hypertension I10 ; Morb id obesity E66.01 ; Impacted cerumen of both ears H61.23 ; Laceration of finger of right hand, initial encounter S61.219A and Encounter for immunization Z23 [facility] [address] [facility] [id number] [address] [place] [phone] 17 Mar, 2016 [facility] [address] [facility] [id number] [address] [place] [phone] Mar, [place] [address] [facility] [id number] [address] [place] [phone] Mar, [address] [id number], [place] [id number] 29 Feb, 2016 Nausea R11.0 ; Blood in the stool K92.1 and Benign essential hypertension I10 [place] [address] [facility] [id number] [address] [place] [phone] Feb, Major depression F32.9 and R ecurrent major depressive disorder, in partial remission F33.[address] [facility] [address] [id number], [place] [id number] Feb, [facility] [address] [id number], [place] [id number] Feb, Recurrent major depressive disorder, in partial remission F33.[address] [facility] [address] [id number], [place] [id number] Jan, [facility] [address] [id number], [place] [id number] Jan, Benign essential hypertension I10 ; Robert a R60.9 and Hyperlipidemia, unspecified hyperlipidemia type E78.5 [facility] [address] [id number], [place] [id number] Jan, Recurrent major depressive disorder, in partial remission F33.41 [facility] [address] [id number] [place] [id number] Jan, [facility] [address] [id number], [place] [id number] Jan, [facility] [address] [id number], [place] [id number] Jan, [facility] [address] [facility] [id number] [address] [place] [phone] Jan, [facility] [address] [facility] [id number] [address] [place] [phone] Dec, [facility] [address] [facility] [id number] [address] [place] [phone] Nov, [facility] [address] [facility] [id number] [address] [place] [phone] Nov, Major depression F32.9 [facility] [address] [facility] [id number] [address] [place] [phone] Nov, [facility] [address] [facility] [id number] [address] [place] [phone] Nov, [place] [address] [facility] [id number] [address] [place] [phone] Nov, Major depressive disorder, r ecurrent episode, mild F33.0 and Anxiety F41.[address] [facility] [address] [id number], [place] [id number] Nov, [facility] [id number] [place] [address] [id number] October, Left elbow pain M25.522 and Other season al allergic rhinitis J30.2 [facility] [address] [facility] [id number] [place] [address] [id number] October, [place] [address] [facility] [id number] [address] [place] [phone] October, Major depressive disorder, r ecurrent, moderate F33.1 [place] [address] [facility] [id number] [address] [place] [id number] October, Major depression F32.9 [place] [address] [facility] [id number] [address] [place] [phone] Sep, Lennox or callus L84 and Onych omycosis B35.1 [place] [address] [place] [id number] [address] [place] [phone] Sep, Major depressive disorder, r ecurrent, moderate F33.1 [place] [address] [facility] [id number] [address] [place] [phone] Sep, Major depression F32.9 [place] [address] [facility] [id number] [address] [place] [phone] Sep, Moderate episode of recurren t major depressive disorder F33.[address] [facility] [address] [id number], [place] [id number] Sep, Muscle strain T14.8 [place] [address] [facility] [id number] [address] [place] [address] Aug, Major depression F32.9 [facility] [address] [facility] [id number] [address] [place] [id number] Aug, Major depression F32.9 [facility] [address] [facility] [id number] [address] [place] [phone] Jul, Morbid obesity E66.01 and Ma cora depression F32.9 [facility] [address] [facility] [id number] [address] [place] [id number] Jul, Depression, major, recurrent , moderate F33.[id number] [place] [address] [id number] Jul, [facility] [address] [facility] [id number] [address] [place] [phone] Jul, [facility] [address] [place] [id number] [address] [place] [phone] Jul, Major depression F32.9 and M orbid obesity E66.[id number] [place] [address] [id number] Jul, Type II diabetes mellitus E11.9 ; Callus of foot L84 ; Benign essential hypertension I10 and Renal insufficiency N28.9 [facility] [address] [facility] [id number] [address] [place] [phone] 09 Jul, 2015 Depression, major, recurrent , moderate F33.1 [facility] [address] [facility] [id number] [address] [place] [phone] 05 Jul, 2015 Major depression F32.9 [facility] [address] [place] [id number] [address] [place] [phone] Jul, [facility] [address] [facility] [id number] [address] [place] [phone] Jun, Major depression F32.9 [facility] [address] [place] [id number] [address] [place] [phone] Jun, Major depressive disorder, r ecurrent, moderate F33.1 [facility] [address] [facility] [id number] [address] [place] [id number] Jun, [facility] [address] [facility] [id number] [address] [place], [place] [id number] Jun, Major depressive disorder, r ecurrent, moderate F33.1 and Major depression F32.[address] [place] [id number] [place] [address] [id number] Jun, Type II diabetes mellitus E11.9 [place] [address] [facility] [id number] [address] [place], [place] [id number] Jun, Depression, major, recurrent , moderate F33.1 [place] [address] [facility] [id number] [address] [place] [phone] May, Major depressive disorder, r ecurrent, moderate F33.1 [place] [address] [place] [id number] [place] [phone] May, [id number] [place] [id number] May, Edema R60.9 [place] [address] [address] [place] [id number] [address] [place] [id number] 17 May, 2015 Insomnia G47.00 and Major de pression F32.[address] [place] [id number] [place] [id number] 15 May, 2015 Morbid obesity E66.01 ; Edema R60.9 ; Sh ortness of breath R06.02 ; Benign essential hypertension I10 and Renal insufficiency N28.[address] [place] [id number] [place] [id number] 14 May, 2015 Hyperlipemia 272.4 and Renal insufficien cy N28.9 [place] [id number] [facility] [id number] [address] [place] [phone] Apr, Major depression F32.9 [place] [address] [address] [facility] [id number] [address] [place] [phone] Apr, [place] [address] [address] [facility] [id number] [address] [place] [phone] Apr, Major depressive disorder, r ecurrent, moderate F33.[address] [facility] [address] [id number] [id number] Apr, Type II diabetes mellitus E11.9 ; Benign essential hypertension I10 ; Edema R60.9 and Renal insufficiency N28.9 [place] [address] [address] [facility] [id number] [address] [place] [phone] Mar, Major depressive disorder, r ecurrent, moderate F33.1 [place] [address] [address] [facility] [id number] [address] [place] [phone] Mar, [place] [address] [address] [facility] [id number] [address] [place] [phone] Mar, Major depression F32.[address] [facility] [address] [id number] [id number] Mar, Morbid obesity E66.01 ; Benign essential hypertension I10 and Type II diabetes mellitus E11.9 [place] [address] [address] [facility] [id number] [address] [place] [address] Feb, Major depressive disorder, r ecurrent, moderate F33.1 [place] [address] [address] [facility] [id number] [address] [place] [address] Feb, Major depressive disorder, r ecurrent episode, in partial or unspecified remission 296.35 ; Anxiety state, unspecified 300.00 and Morbid obesity 278.01 [place] [address] [address] [facility] [id number] [address] [place] [address] Feb, [facility] [address] [id number] [id number] Feb, Vomiting 787.03 and Viral syndrome 079.9 9 [place] [address] [address] [facility] [id number] [address] [place] [address] Feb, Major depression, recurrent 296.30 ; Generalized anxiety disorder 300.02 and No condition on [place] II V71.09 [facility] [address] [place] [address] AVE [id number] [id number] Feb, Skin tag 701.9 [facility] [address] [facility] [id number] [address] [place] [address] Feb, [facility] [address] [place] [id number] [address] [place] [address] Jan, Depression, major, recurrent , moderate 296.[address] [id number] [place] [id number] Jan, Nausea and vomiting 787.01 ; Rib pain on right side 786.50 and Fall on or from sidewalk curb E880.1 [facility] [address] [place] [id number] [address] [place] [address] Jan, [facility] [address] [place] [id number] [address] [place] [address] Jan, Major depressive disorder, r ecurrent episode, in partial or unspecified remission 296.35 and Anxiety state, unspecified 300.00 [facility] [address] [place] [address] [id number][place] [id number] Jan, [facility] [address] [facility] [id number] [address] [place] [address] Jan, Depression, major, recurrent , moderate 296.32 [facility] [address] [facility] [id number] [address] [place] [address] Jan, Major depression, recurrent 296.30 ; No condition on [place] II V71.09 and No condition on axis III V71.09 [facility] [address] [place], [place] [id number] [id number] Jan, Drug-induced nausea and vomiting 787.01 [facility] [address] [place] [id number] [address] [place] [address] Jan, Depression, major, recurrent , moderate 296.32 [facility] [address] [facility] [id number] [address] [place] [address] Dec, Depression, major, recurrent , moderate 296.32 [facility] [place] [facility] [address] [id number] [id number] Dec, Morbid obesity 278.01 ; Metabolic syndro me 277.7 ; Hyperlipemia 272.4 ; Benign essential hypertension 401.1 ; Dietary counseling V65.3 ; Exercise counseling V65.41 and Inflamed skin tag 701.9 [place] [address] [address] [place] [id number] [address] [place] [address] Dec, Depression, major, recurrent , moderate 296.32 [place] [address] [address] Dec, [place] [address] [address] Dec, Major depression, recurrent 296.30 ; Anxiety, generalized 300.02 and No condition on [place] II V71.09 [place] [address] [address] Dec, Depression, major, recurrent , moderate 296.32 [place] [address] [address] [place] [id number] [address] [place] [address] Dec, Major depressive disorder, r ecurrent episode, moderate 296.32 [place] [id number] [place] [address] Dec, Depression, major, recurrent , moderate 296.32 [place] [address] [address] [place] [id number] [address] [place] [address] Dec, Depression, major, recurrent , moderate 296.32 [place] [address] [address] [place] [id number] [address] [place] [address] Dec, Depression, major, recurrent , moderate 296.32 [place] [address] [address] [place] [id number] [address] [place] [address] Dec, Depression, major, recurrent , moderate 296.32 [facility] [address] [address] Nov, Depression, major, recurrent , moderate 296.32 [facility] [address] [address] Nov, Major depression 296.20 ; So cial phobia 300.23 and No condition on [place] II V71.09 [facility] [address] [address] Nov, Depression, major, recurrent , moderate 296.32 [place] [address] [address] Nov, Major depressive disorder, r ecurrent episode, moderate 296.32 and Generalized anxiety disorder 300.02 [place] [address] [address] Nov, Depression, major, recurrent , moderate 296.32 [facility] [address] [address] Nov, Depression, major, recurrent , moderate 296.32 [facility] [address] [address] October, Generalized anxiety disorder 300.02 ; No condition on [place] II V71.09 and Major depressive disorder, recurrent 296.30 [facility] [address] [address] Sep, [facility] [address] [address] Sep, [place] [address] [address] Aug, [facility] [address] [address] Aug, [facility] [address] [place] [address] 23 Aug, 2014 [facility] [address] [id number] [address] [place] [address], [place] [address] 23 Aug, 2014 [facility] [address] [id number] [address] [place] [address], [place] [address] 20 Aug, 2014 [facility] [address] [id number] [address] [place] [address], [place] [address] 20 Aug, 2014 [facility] [address] [id number] [address] [place] [address], [place] [address] 20 Aug, 2014 [facility] [address] [id number] [address] [place] [address], [place] [address] 20 Aug, 2014 [facility] [address] [id number] [address] [place] [address], [place] [address] 13 Aug, 2014 [facility] [address] [id number] [address] [place] [address], [place] [address] 13 Aug, 2014 [facility] [address] [id number] [address] [place] [address], [place] [address] 13 Aug, 2014 [facility] [address] [id number] [address] [place] [address], [place] [address] 13 Aug, 2014 [facility] [address] [id number] [address] [place] [address], [place] [address] 12 Aug, 2014 [facility] [address] [id number] [address] [place] [address], [place] [address] 12 Aug, 2014 [facility] [address] [id number] [address] [place] [address], [place] [address] 10 Aug, 2014 [facility] [address] [id number] [address] [place] [address], [place] [address] 10 Aug, 2014 [facility] [address] [id number] [address] [place] [address], [place] [address] 09 Aug, 2014 [facility] [address] [id number] [address] [place] [address], [place] [address] 09 Aug, 2014 [facility] [address] [id number] [address] [place] [address], [place] [address] Jul, [facility] [address] [id number] [address] [place] [address], [place] [address] Jul, [facility] [address] [id number] [address] [place] [address], [place] [address] Jul, [facility] [address] [id number] [address] [place] [address], [place] [address] Jul, [facility] [address] [id number] [address] [place] [address], [place] [address] Jul, [facility] [address] [id number] [address] [place] [address], [place] [address] Jul, [facility] [address] [id number] [address] [place] [address], [place] [address] Jun, [facility] [address] [id number] [address] [place] [address], [place] [address] Jun, [facility] [address] [id number] [address] [place] [address], [place] [address] Jun, [facility] [address] [id number] [address] [place] [address], [place] [address] Jun, [facility] [address] [id number] [address] [place] [address], [place] [address] Jun, [facility] [address] [id number] [address] [place] [address], [place] [address] Jun, [facility] [address] [id number] [address] [place] [address], [place] [address] Jun, [facility] [address] [id number] [address] [place] [address], [place] [address] Jun, [facility] [address] [id number] [address] [place] [address], [place] [address] Jun, [facility] [address] [id number] [address] [place] [address] [place] [address] Jun, [facility] [address] [id number] [address] [place] [address], [place] [address] Jun, [facility] [address] [id number] [address] [place] [address], [place] [address] Jun, [facility] [address] [id number] [place] [id number] Jun, [facility] [address] [id number] [address] [place] [address], [place] [address] Jun, [facility] [address] [id number] [address] [place] [address], [place] [address] Jun, [facility] [address] [id number] [address] [place] [address], [place] [address] Jun, [facility] [address] [id number] [address] [place] [address], [place] [address] May, [facility] [address] [id number] [address] [place] [address], [place] [address] May, [facility] [address] [id number] [address] [place] [address], [place] [address] May, [facility] [address] [id number] [address] [place] [address], [place] [address] May, [facility] [address] [id number] [address] [place] [address], [place] [address] Apr, [facility] [address] [id number] [address] [place] [address], [place] [address] Apr, [facility] [address] [id number] [address] [place] [address], [place] [address] Apr, [facility] [address] [id number] [address] [place] [address], [place] [address] Apr, [facility] [address] [id number] [address] [place] [address], [place] [address] Apr, [facility] [address] [id number] [address] [place] [address], [place] [address] Apr, [facility] [address] [id number] [address] [place] [address], [place] [address] Apr, [facility] [address] [id number] [address] [place] [address], [place] [address] Apr, [facility] [address] [id number] [address] [place] [address], [place] [address] Apr, [facility] [address] [id number] [address] [place] [address], [place] [address] Apr, [facility] [address] [id number] [address] [place] [address], [place] [address] Apr, [facility] [address] [id number] [address] [place] [address], [place] [address] Apr, [facility] [address] [id number] [address] [place] [address], [place] [address] Apr, [facility] [address] [id number] [address] [place] [address], [place] [address] Apr, [facility] [address] [id number] [address] [place] [address], [place] [address] Apr, [facility] [address] [id number] [address] [place] [address], [place] [address] Apr, [facility] [address] [id number] [address] [place] [address], [place] [address] Apr, [facility] [address] [id number] [address] [place] [address], [place] [address] Apr, [facility] [address] [id number] [address] [place] [address], [place] [address] Apr, [facility] [address] [id number] [address] [place] [address], [place] [address] Apr, [facility] [address] [id number] [address] [place] [address], [place] [address] Mar, [facility] [address] [id number] [address] [place] [address], [place] [address] Mar, [facility] [address] [id number] [address] [place] [address], [place] [address] Mar, [facility] [address] [id number] [address] [place] [address], [place] [address] Mar, [facility] [address] [id number] [address] [place] [address], [place] [address] Mar, [facility] [address] [id number] [address] [place] [address], [place] [address] Mar, [facility] [address] [id number] [address] [place] [address], [place] [address] Mar, [facility] [address] [id number] [address] [place] [address], [place] [address] Mar, [facility] [address] [id number] [address] [place] [address], [place] [address] Mar, [facility] [address] [id number] [address] [place] [address], [place] [address] Mar, [facility] [address] [id number] [address] [place] [address], [place] [address] Feb, [facility] [address] [id number] [address] [place] [address], [place] [address] Feb, [facility] [address] [id number] [address] [place] [address], [place] [address] Feb, [facility] [address] [id number] [address] [place] [address], [place] [address] Feb, [facility] [address] [id number] [address] [place] [address], [place] [address] Jan, [facility] [address] [id number] [address] [place] [address], [place] [address] Jan, [facility] [address] [id number] [address] [place] [address] [place] [address] Jan, [facility] [address] [id number] [address] [place] [address], [place] [address] Jan, [facility] [address] [id number] [address] [place] [address], [place] [address] Jan, [facility] [address] [id number] [address] [place] [address], [place] [address] Jan, [facility] [address] [id number] [address] [place] [address], [place] [address] Dec, [facility] [address] [id number] [address] [place] [address], [place] [address] Dec, [facility] [address] [id number] [address] [place] [address], [place] [address] Nov, [facility] [address] [id number] [address] [place] [address], [place] [address] Nov, [facility] [address] [id number] [address] [place] [address], [place] [address] Nov, [facility] [address] [id number] [address] [place] [address], [place] [address] Nov, [facility] [address] [id number] [address] [place] [address], [place] [address] Nov, [facility] [address] [id number] [address] [place] [address], [place] [address] Nov, [facility] [address] [id number] [address] [place] [address], [place] [address] Sep, [facility] [address] [id number] [address] [place] [address], [place] [address] Sep, [facility] [address] [id number] [address] [place] [address], [place] [address] Sep, [facility] [address] [id number] [address] [place] [address], [place] [address] Sep, [facility] [address] [id number] [address] [place] [address], [place] [address] Aug, [facility] [address] [id number] [address] [place] [address], [place] [address] Aug, [facility] [address] [id number] [address] [place] [address], [place] [address] Jul, [facility] [address] [id number] [address] [place] [address], [place] [address] Jul, [facility] [address] [id number] [address] [place] [address], [place] [address] Jun, [facility] [address] [id number] [address] [place] [address], [place] [address] Jun, [facility] [address] [id number] [address] [place] [address], [place] [address] Jun, [facility] [address] [id number] [address] [place] [address], [place] [address] Jun, [facility] [address] [id number] [address] [place] [address], [place] [address] May, [facility] [address] [id number] [address] [place] [address], [place] [address] May, [facility] [address] [id number] [address] [place] [address], [place] [address] May, [facility] [address] [id number] [address] [place] [address], [place] [address] May, [facility] [address] [id number] [address] [place] [address], [place] [address] May, [facility] [address] [id number] [address] [place] [address], [place] [address] May, [facility] [address] [id number] [address] [place] [address], [place] [address] Apr, [facility] [address] [id number] [address] [address] Apr, [facility] [address] [id number] [address] [place] [address], [place] [address] Apr, [facility] [address] [id number] [address] [place] [address], [place] [address] Apr, [facility] [address] [id number] [address] [place] [address], [place] [address] Mar, [facility] [address] [id number] [address] [place] [address] Mar, [facility] [address] [id number] [address] [place] [address], [place] [address] Mar, [facility] [address] [id number] [address] [place] [address] Mar, [facility] [address] [id number] [address] [place] [address] Feb, [facility] [address] [id number] [place] [id number] Jan, [facility] [address] [id number] [address] [place] [address] Jan, [facility] [address] [id number] [address] [place] [address] Dec, [facility] [address] [id number] [address] [place] [address] Dec, [facility] [address] [id number] [address] [place] [address] Dec, [facility] [address] [facility] [id number] [place] [id number] Dec, [facility] [address] [id number] [address] [place] [address] Nov, [facility] [address] [id number] [address] [place] [address] 14 Nov, 2012 [facility] [address] [id number] [address] [place] [address] 12 Nov, 2012 [facility] [address] [id number] [place] [address] Nov, [facility] [address] [id number] [address] [place] [id number] Nov, [facility] [address] [facility] [id number] [address] [place] [id number] October, [facility] [address] [facility] [id number] [address] [place] [phone] October, [facility] [address] [facility] [id number] [address] [place] [phone] Aug, [facility] [address] [facility] [id number] [address] [place] [id number] 13 Nov, 2011 IMMUNIZATIONS No Known Immunizations SOCIAL HISTORY Never Assessed REASON FOR VISIT f/u PLAN OF CARE Activity Details Follow Up will likely use services in [place] Reason:depression VITAL SIGNS MEDICATIONS Unknown Medications RESULTS No Results PROCEDURES Procedure Date Ordered Result Body Site Psychotherapy, patient &/family, 30 minutes, established pat ient December 07, 2017 INSTRUCTIONS MEDICATIONS ADMINISTERED No Known Medications [...] 03/2016 Hospitalization History gastric sleeve Hospitalization History [facility] Trouble with left shoulder blade 08/2017
--- OUTSIDE RECORDS SUMMARY | 2019-11-29 09:25 | XMS REPORT ---
Author Author Curt GRIGSBY Organization [facility] Address [address] [place] [address] Care Team Providers Care Implementation Consultant Name Role Phone CALISTAISRAELMAHENDRA Unavailable PROBLEMS Type Condition ICD9-CM Code [id number] Code Onset Dates Condition S tatus SNOMED Code Problem Metabolic syndrome E88.81 Active 2 76405487 Problem Severe episode of recurrent major depressive disorder, without psychotic features F33.2 Active 66570738 Problem Anxiety F41.9 Active 86943909 Problem Depressive disorder, not elsewhere classified F32. 9 Active 64622984 Problem Sciatica, right side M54.31 Active [id number] Problem Mixed obsessional thoughts and acts F42.2 Active 41966086 Problem Vitamin D deficiency E55.9 Active 62886641 Problem DANIELA (generalized anxiety disorder) F41.1 Active 85941057 Problem BMI 45.0-49.9, adult Z68.42 Active 413046885 Problem Hyperlipemia E78.5 Active 3939563 4 Problem Major depression F32.9 Active 370 212411 Problem Insomnia G47.00 Active 673461090 Problem Renal insufficiency N28.9 Active 492849158 Problem Edema R60.9 Active 268382142 Problem Morbid obesity E66.01 Active 97996 6002 Problem Callus of foot L84 Active 24214 1005 Problem Benign essential hypertension I10 Active 4694449 Problem Recurrent major depressive disorder, in partial remission F33.41 Active 01960937 ALLERGIES No Information ENCOUNTERS Encounter Location Date Diagnosis [facility] [address] [facility] [id number] [address] [place] [address] Mar, [facility] [address] [facility] [id number] [address] [place] [address] Jan, Recurrent major depressive d isorder, in partial remission F33.41 ; Mixed obsessional thoughts and acts F42.2 and BMI 45.0-49.9, adult Z68.42 [facility] [address] [address] [id number] [id number] Jan, [facility] [address] [id number][place] [id number] Jan, Benign essential hypertension I10 ; BMI 45.0-49.9, adult Z68.42 ; Metabolic syndrome E88.81 and Allergic rhinitis, unspecified seasonality, unspecified trigger J30.9 [facility] [address] [place] [id number] [address] [place] [address] Dec, DANIELA (generalized anxiety dis order) F41.1 and Depressive disorder, not elsewhere classified F32.9 [facility] [address] [id number], [place] [id number] Dec, Recurrent major depressive disorder, in partial remission F33.41 [facility] [place] [address] [place] [address] AVE [id number], [place] [id number] Dec, [facility] [address] [id number], [place] [id number] Nov, [facility] [address] [id number] [place] [address] [id number] Nov, Recurrent major depressive disorder, in partial remission F33.41 [place] [address] [facility] [id number] [address] [place] [address] Nov, Recurrent major depressive d isorder, in partial remission F33.41 ; Mixed obsessional thoughts and acts F42.2 ; DANIELA (generalized anxiety disorder) F41.1 and BMI 45.0-49.9, adult Z68.42 [facility] [address] [id number], [place] [id number] Nov, [facility] [address] [id number] [address] Nov, Other conjunctivitis of both eyes H10.89 and Sciatica, right side M54.31 [facility] [address] [id number], [place] [id number] Nov, [facility] [address] [id number], [place] [id number] Nov, [facility] [address] [id number], [place] [id number] October, [facility] [address] [id number], [place] [id number] October, [facility] [address] [facility] [id number] [address] [place] [address] October, BMI 45.0-49.9, adult Z68.42 ; Mixed obsessional thoughts and acts F42.2 ; Recurrent major depressive disorder, in partial remission F33.41 and DANIELA (generalized anxiety disorder) F41.1 [facility] [address] [id number], [place] [address] October, Benign essential hypertension I10 ; Morb id obesity E66.01 and BMI 45.0-49.9, adult Z68.42 [facility] [address] [id number], [place] [id number] Sep, [facility] [address] [id number], [place] [id number] Sep, [facility] [address] [id number], [place] [id number] Sep, [facility] [address] [id number], [place] [id number] Sep, Hospital discharge follow-up Z09 ; Aller gic rhinitis, unspecified seasonality, unspecified trigger J30.9 and Shortness of breath R06.02 [facility] [address] [id number], [place] [id number] Sep, Recurrent major depressive disorder, in partial remission F33.41 [facility] [address] [id number], [place] [id number] Aug, Irritable mood R45.4 [facility] [address] [facility] [id number] [address] [place] [address] Aug, [facility] [address] [id number], [place] [id number] Jul, Benign essential hypertension I10 ; Robert a R60.9 and Impacted cerumen of left ear H61.22 [place] [address] [facility] [id number] [address] [place] [phone] 14 Jul, 2017 Major depression F32.9 ; Rec urrent major depressive disorder, in partial remission F33.41 and Anxiety F41.9 [place] [address] [facility] [id number] [address] [place] [address] Jun, Major depression F32.9 ; Rec urrent major depressive disorder, in partial remission F33.41 and Anxiety F41.[address] [place] [address] [id number], [place] [id number] Jun, Major depression F32.9 ; Morbid obesity E66.01 ; Irritable mood R45.4 ; Hand weakness R29.898 and Vitamin D deficiency E55.[address] [place] [address] [id number], [place] [id number] Jun, [place] [address] [id number], [place] [id number] May, Major depression F32.9 [place] [address] [facility] [id number] [address] [place] [address] May, Major depression F32.[address] [place] [address] [id number], [place] 115159970 May, BMI 50.0-59.9, adult Z68.43 ; Major depr ession F32.9 ; Anxiety F41.9 ; Hypertrophic toenail L60.2 and Pain of left great toe M79.[address] [place] [place] [address] [id number], [place] [id number] May, Recurrent major depressive disorder, in partial remission F33.41 [place] [address] [facility] [id number] [address] [place] [address] Apr, [facility] [address] [id number], [place] [id number] Apr, [facility] [address] [facility] [id number] [address] [place] [address] Apr, Major depression F32.9 [facility] [id number] [place] [address] [id number] Apr, Severe episode of recurrent major depres sive disorder, without psychotic features F33.2 ; Anxiety F41.9 and Insomnia G47.00 [facility] [id number] [place] [address] [id number] Apr, [facility] [address] [place] [id number] [address] [place] [address] Apr, [facility] [id number] [place] [address] [id number] Apr, [facility] [address] [id number], [place] [id number] Mar, [facility] [address] [id number] [place] [address] [id number] Mar, Allergic conjunctivitis of both eyes H10 .13 [facility] [address] [facility] [id number] [address] [place] [address] Mar, Major depression F32.9 [facility] [address] [id number], [place] [id number] Mar, Metabolic syndrome E88.81 ; History of g astric bypass Z98.890 ; Benign essential hypertension I10 and Allergic conjunctivitis of both eyes H10.13 [facility] [address] [facility] [id number] [address] [place] [address] Mar, Major depression F32.9 [facility] [address] [id number], [place] [id number] Feb, [facility] [address] [place] [id number] [address] [place] [address] 12 Feb, 2017 Major depression F32.9 [place] [address] [facility] [address] [id number], [place] 660562651 Feb, Subacute maxillary sinusitis J01.00 and Bronchitis J40 [facility] [address] [place] [id number] [address] [place] [address] Feb, Major depressive disorder, r ecurrent, moderate F33.1 [facility] [place] [address] [facility] [address] [id number], [place] [id number] Jan, [facility] [address] [id number] [place] [address] [id number] Jan, Acute non-recurrent maxillary sinusitis J01.00 and Skin tag L91.[address] [id number] [place] [address] [id number] Jan, Cough R05 and Sinus congestion R09.81 [facility] [address] [id number], [place] [id number] Jan, [address] [id number] [place] [address] [id number] Jan, Benign essential hypertension I10 ; Hist ory of gastric bypass Z98.890 and Nausea and vomiting in adult R11.2 [place] [address] [place] [address] Jan, Major depressive disorder, r ecurrent, moderate F33.1 [facility] [address] [facility] [id number] [address] [place] [address] Dec, Insomnia G47.00 ; Recurrent major depressive disorder, in partial remission F33.41 and Morbid obesity E66.01 [facility] [place] [address] [facility] [address] [id number], [place] [id number] Dec, [facility] [address] [id number] [place] [address] [id number] Dec, Chronic bacterial conjunctivitis of left eye H10.[address] [id number], [place] [id number] 27 Nov, [address] [id number], [place] [id number] Nov, Dental examination Z01.[address] [id number] [place] [address] [id number] 23 Nov, 2016 Benign essential hypertension I10 ; Hist ory of gastric bypass Z98.890 and Nausea and vomiting in adult R11.2 [place] [address] [facility] [id number] [address] [place] [address] 13 Nov, 2016 Major depressive disorder, r ecurrent, moderate F33.1 ; Generalized anxiety disorder F41.1 and Insomnia due to other mental disorder F51.05 [place] [address] [facility] [id number] [address] [place] [address] 12 Nov, 2016 Recurrent major depressive d isorder, in partial remission F33.41 ; Insomnia G47.00 and Morbid obesity E66.01 [facility] [address] [id number] [place] [id number] October, Abscess of left arm L02.414 [place] [address] [facility] [id number] [address] [place] [address] October, Morbid obesity E66.01 ; Lida r depression F32.9 and Recurrent major depressive disorder, in partial remission F33.[address] [id number], [place] [id number] Sep, Benign essential hypertension I10 ; Morb id obesity E66.01 ; S/P gastric bypass Z98.84 ; Abscess L02.91 and Chronic bacterial conjunctivitis of left eye H10.[address] [id number], [place] [id number] 17 Sep, 2016 Dental examination Z01.20 [facility] [address] [facility] [id number] [address] [place] [id number] 11 Sep, 2016 Morbid obesity E66.01 ; Lida r depression F32.9 and Recurrent major depressive disorder, in partial remission F33.41 [facility] [address] [facility] [id number] [address] [place] [address] Jul, [facility] [address] [facility] [id number] [address] [place] [address] Jul, Major depressive disorder, r ecurrent, moderate F33.1 [place] [address] [facility] [id number] [address] [place] [address] Jul, Major depressive disorder, r ecurrent, moderate F33.1 and Generalized anxiety disorder F41.1 [facility] [id number] [place] [address] [id number] Jul, Cough R05 [place] [address] [facility] [id number] [address] [place] [address] Jul, Morbid obesity E66.01 ; Lida r depression F32.9 and Recurrent major depressive disorder, in partial remission F33.41 [facility] [id number] [place] [address] [id number] Jul, [facility] [id number] [place] [address] [id number] Jul, [place] [address] [id number] [place] [address] [id number] Jul, Gastroenteritis K52.9 and Cough R05 [place] [id number] [place] [address] [id number] Jun, Acute bacterial conjunctivitis of left e ye H10.32 [place] [address] [facility] [id number] [address] [place] [address] Jun, [place] [address] [facility] [id number] [address] [place] [address] Jun, Recurrent major depressive d isorder, in partial remission F33.41 [facility] [address] [facility] [id number] [address] [place] [address] May, Major depression F32.9 and M orbid obesity E66.01 [facility] [address] [facility] [id number] [address] [place] [address] May, [facility] [id number] [place] [address] [id number] May, Thrush B37.0 [place] [address] [facility] [id number] [address] [place] [address] Apr, Major depressive disorder, r ecurrent, moderate F33.1 [place] [address] [facility] [id number] [address] [place] [address] Apr, Insomnia G47.00 ; Major depr ession F32.9 and Recurrent major depressive disorder, in partial remission F33.41 [place] [address] [facility] [id number] [address] [place] [address] Apr, [facility] [address] [facility] [id number] [address] [place] [address] Apr, Major depression F32.9 and R ecurrent major depressive disorder, in partial remission F33.[address] [id number], [place] [id number] Mar, Benign essential hypertension I10 ; Morb id obesity E66.01 ; Impacted cerumen of both ears H61.23 ; Laceration of finger of right hand, initial encounter S61.219A and Encounter for immunization Z23 [facility] [address] [facility] [id number] [address] [place] [address] Mar, [facility] [address] [facility] [id number] [address] [place] [address] Mar, [facility] [address] [facility] [id number] [address] [place] [address] Mar, [address] [id number], [place] [id number] Feb, Nausea R11.0 ; Blood in the stool K92.1 and Benign essential hypertension I10 [facility] [address] [id number] [address] [place] [address] Feb, Major depression F32.9 and R ecurrent major depressive disorder, in partial remission F33.[address] [facility] [address] [id number], [place] [id number] Feb, [facility] [place] [address] [id number], [place] [id number] Feb, Recurrent major depressive disorder, in partial remission F33.[address] [facility] [address] [address] [id number], [place] [id number] Jan, [facility] [place] [address] [id number], [place] [id number] Jan, Benign essential hypertension I10 ; Robert a R60.9 and Hyperlipidemia, unspecified hyperlipidemia type E78.5 [facility] [address] [id number], [place] [id number] Jan, Recurrent major depressive disorder, in partial remission F33.41 [facility] [place] [address] [id number] [place] [id number] Jan, [facility] [address] [id number], [place] [id number] Jan, [facility] [address] [address] [id number], [place] [id number] Jan, [facility] [address] [facility] [id number] [address] [place] [address] Jan, [facility] [address] [facility] [id number] [address] [place] [address] Dec, [facility] [address] [facility] [id number] [address] [place] [phone] Nov, [facility] [address] [facility] [id number] [address] [place] [address] Nov, Major depression F32.9 [facility] [address] [facility] [id number] [address] [place] [address] Nov, [facility] [address] [facility] [id number] [address] [place] [address] Nov, [place] [address] [facility] [id number] [address] [place] [address] Nov, Major depressive disorder, r ecurrent episode, mild F33.0 and Anxiety F41.[address] [place] [id number] [place] [address] [id number] Nov, [place] [id number] [place] [address] [id number] October, Left elbow pain M25.522 and Other season al allergic rhinitis J30.[id number] [place] [address] [id number] October, [place] [address] [facility] [id number] [address] [place] [address] October, Major depressive disorder, r ecurrent, moderate F33.1 [place] [address] [facility] [id number] [address] [place] [address] October, Major depression F32.9 [place] [address] [facility] [id number] [address] [place] [address] Sep, [place] or callus L84 and Onych omycosis B35.1 [place] [address] [facility] [id number] [address] [place] [address] Sep, Major depressive disorder, r ecurrent, moderate F33.1 [facility] [address] [facility] [id number] [address] [place] [address] Sep, Major depression F32.9 [place] [address] [facility] [id number] [address] [place] [address] Sep, Moderate episode of recurren t major depressive disorder F33.[address] [place] [id number] [place] [address] [id number] Sep, Muscle strain T14.8 [facility] [address] [facility] [id number] [address] [place] [address] Aug, Major depression F32.9 [facility] [address] [facility] [id number] [address] [place] [address] Aug, Major depression F32.9 [facility] [address] [facility] [id number] [address] [place] [address] Jul, Morbid obesity E66.01 and Ma cora depression F32.9 [facility] [address] [facility] [id number] [address] [place] [address] Jul, Depression, major, recurrent , moderate F33.[address] [id number], [place] [id number] Jul, [facility] [address] [facility] [id number] [address] [place] [address] Jul, [facility] [address] [facility] [id number] [address] [place] [address] Jul, Major depression F32.9 and M orbid obesity E66.[address] [id number] [place] [address] [id number] Jul, Type II diabetes mellitus E11.9 ; Callus of foot L84 ; Benign essential hypertension I10 and Renal insufficiency N28.9 [facility] [address] [facility] [id number] [address] [place] [address] Jul, Depression, major, recurrent , moderate F33.1 [facility] [address] [facility] [id number] [address] [place] [address] Jul, Major depression F32.9 [facility] [address] [facility] [id number] [address] [place] [address] Jul, [facility] [address] [facility] [id number] [address] [place] [address] Jun, Major depression F32.9 [facility] [address] [facility] [id number] [address] [place] [address] Jun, Major depressive disorder, r ecurrent, moderate F33.1 [place] [address] [facility] [id number] [address] [place] [address] Jun, [place] [address] [place] [id number] [address] [place] [address] Jun, Major depressive disorder, r ecurrent, moderate F33.1 and Major depression F32.[address] [id number] [place] [address] [id number] Jun, Type II diabetes mellitus E11.9 [place] [address] [place] [id number] Jun, Depression, major, recurrent , moderate F33.1 [place] [address] [place] [id number] [address] [place] [address] May, Major depressive disorder, r ecurrent, moderate F33.1 [place] [address] [place] [address] May, [id number] [place] [address] [id number] May, Edema R60.9 [place] [address] [place] [id number] [address] [place] [id number] 17 May, 2015 Insomnia G47.00 and Major de pression F32.[address] [place] [id number] [place] [address] [id number] May, 2015 Morbid obesity E66.01 ; Edema R60.9 ; Sh ortness of breath R06.02 ; Benign essential hypertension I10 and Renal insufficiency N28.[id number] [place] [address] [id number] 14 May, 2015 Hyperlipemia 272.4 and Renal insufficien cy N28.9 [place] [address] [place] [id number] [address] [place] [id number] Apr, Major depression F32.9 [facility] [address] [facility] [id number] [address] [place] [id number] Apr, [facility] [address] [facility] [id number] [address] [place] [id number] Apr, Major depressive disorder, r ecurrent, moderate F33.[address] [facility] [address] [id number] [id number] Apr, Type II diabetes mellitus E11.9 ; Benign essential hypertension I10 ; Edema R60.9 and Renal insufficiency N28.9 [place] [address] [address] [facility] [id number] [address] [place] [id number] Mar, Major depressive disorder, r ecurrent, moderate F33.1 [place] [address] [address] [facility] [id number] [address] [place] [id number] Mar, [place] [address] [address] [facility] [id number] [address] [place] [id number] Mar, Major depression F32.9 [facility] [address] [address] [address] [id number] [id number] Mar, Morbid obesity E66.01 ; Benign essential hypertension I10 and Type II diabetes mellitus E11.9 [place] [address] [address] [facility] [id number] [address] [place] [id number] Feb, Major depressive disorder, r ecurrent, moderate F33.1 [place] [address] [address] [facility] [id number] [address] [place] [id number] Feb, Major depressive disorder, r ecurrent episode, in partial or unspecified remission 296.35 ; Anxiety state, unspecified 300.00 and Morbid obesity 278.01 [place] [address] [address] [facility] [id number] [address] [place] [id number] Feb, [facility] [address] [id number] [id number] Feb, Vomiting 787.03 and Viral syndrome 079.9 9 [facility] [address] [facility] [id number] [address] [place] [id number] 15 Feb, 2015 Major depression, recurrent 296.30 ; Generalized anxiety disorder 300.02 and No condition on [place] II V71.09 [facility] [address] [place] [address] AVE [id number] [id number] 03 Feb, 2015 Skin tag 701.9 [facility] [address] [place] [id number] [address] [place] [id number] Feb, [facility] [address] [facility] [id number] [address] [place] [id number] Jan, Depression, major, recurrent , moderate 296.[address] [id number] [id number] Jan, Nausea and vomiting 787.01 ; Rib pain on right side 786.50 and Fall on or from sidewalk curb E880.1 [facility] [address] [id number] [address] [place] [id number] Jan, [facility] [address] [id number] [address] [place] [id number] Jan, Major depressive disorder, r ecurrent episode, in partial or unspecified remission 296.35 and Anxiety state, unspecified 300.[address] [id number] [id number] Jan, [facility] [address] [facility] [id number] [address] [place] [id number] Jan, Depression, major, recurrent , moderate 296.32 [facility] [address] [facility] [id number] [address] [place] [id number] Jan, Major depression, recurrent 296.30 ; No condition on [place] II V71.09 and No condition on axis III V71.[address] [id number] [id number] Jan, Drug-induced nausea and vomiting 787.01 [facility] [id number] [address] [place] [id number] Jan, Depression, major, recurrent , moderate 296.[address] [address] Dec, Depression, major, recurrent , moderate 296.[id number] [place] [id number] Dec, Morbid obesity 278.01 ; Metabolic syndro me 277.7 ; Hyperlipemia 272.4 ; Benign essential hypertension 401.1 ; Dietary counseling V65.3 ; Exercise counseling V65.41 and Inflamed skin tag 701.[address] [address] Dec, Depression, major, recurrent , moderate 296.[address] [address] Dec, [address] [address] Dec, Major depression, recurrent 296.30 ; Anxiety, generalized 300.02 and No condition on [place] II V71.[address] [address] Dec, Depression, major, recurrent , moderate 296.[address] [address] Dec, Major depressive disorder, r ecurrent episode, moderate 296.[address] [address] Dec, Depression, major, recurrent , moderate 296.[address] [address] Dec, Depression, major, recurrent , moderate 296.[address] [address] Dec, Depression, major, recurrent , moderate 296.32 [facility] [address] [id number] [address] [place] [id number] Dec, Depression, major, recurrent , moderate 296.32 [facility] [address] [id number] [place] [address] Nov, Depression, major, recurrent , moderate 296.32 [place] [address] [address] Nov, Major depression 296.20 ; So cial phobia 300.23 and No condition on [place] II V71.09 [facility] [address] [address] Nov, Depression, major, recurrent , moderate 296.32 [place] [address] [address] Nov, Major depressive disorder, r ecurrent episode, moderate 296.32 and Generalized anxiety disorder 300.02 [facility] [address] [address] Nov, Depression, major, recurrent , moderate 296.32 [place] [address] [address] Nov, Depression, major, recurrent , moderate 296.32 [facility] [address] [address] October, Generalized anxiety disorder 300.02 ; No condition on [place] II V71.09 and Major depressive disorder, recurrent 296.30 [facility] [address] [address] Sep, [place] [address] [address] Sep, [facility] [address] [id number] [place] [address] Aug, [facility] [address] [id number] Aug, [facility] [address] [id number] [facility] [place] [id number] 23 Aug, 2014 [facility] [address] [id number] [address] [place] [address], [place] [id number] 23 Aug, 2014 [facility] [address] [id number] [address] [place] [address], [place] [id number] 20 Aug, 2014 [facility] [address] [id number] [address] [place] [address], [place] [id number] 20 Aug, 2014 [facility] [address] [id number] [address] [place] [address], [place] [id number] 20 Aug, 2014 [facility] [address] [id number] [address] [place] [address], [place] [id number] 20 Aug, 2014 [facility] [address] [id number] [address] [place] [address], [place] [id number] 13 Aug, 2014 [facility] [address] [id number] [address] [place] [address], [place] [id number] 13 Aug, 2014 [facility] [address] [id number] [address] [place] [address], [place] [id number] 13 Aug, 2014 [facility] [address] [id number] [address] [place] [address], [place] [id number] 13 Aug, 2014 [facility] [address] [id number] [address] [place] [address], [place] [id number] 12 Aug, 2014 [facility] [address] [id number] [address] [place] [address], [place] [id number] 12 Aug, 2014 [facility] [address] [id number] [address] [place] [address], [place] [id number] 10 Aug, 2014 [facility] [address] [id number] [address] [place] [address], [place] [id number] 10 Aug, 2014 [facility] [address] [id number] [address] [place] [address], [place] [id number] 09 Aug, 2014 [facility] [address] [id number] [address] [place] [address], [place] [id number] Aug, [facility] [address] [id number] [address] [place] [address], [place] [id number] Jul, [facility] [address] [id number] [address] [place] [address], [place] [id number] Jul, [facility] [address] [id number] [address] [place] [address], [place] [id number] Jul, [facility] [address] [id number] [address] [place] [address], [place] [id number] Jul, [facility] [address] [id number] [address] [place] [address], [place] [id number] Jul, [facility] [address] [id number] [address] [place] [address], [place] [id number] Jul, [facility] [address] [id number] [address] [place] [address], [place] [address] Jun, [facility] [address] [id number] [address] [place] [address], [place] [id number] Jun, [facility] [address] [id number] [address] [place] [address], [place] [id number] Jun, [facility] [address] [id number] [address] [place] [address], [place] [id number] Jun, [facility] [address] [id number] [address] [place] [address], [place] [id number] Jun, [facility] [address] [id number] [address] [place] [address], [place] [address] Jun, [facility] [address] [id number] [address] [place] [address], [place] [id number] Jun, [facility] [address] [id number] [address] [place] [address], [place] [id number] Jun, [facility] [address] [id number] [address] [place] [address], [place] [id number] Jun, [facility] [address] [id number] [address] [place] [address], [place] [id number] Jun, [facility] [address] [id number] [address] [place] [address], [place] [id number] Jun, [facility] [address] [id number] [address] [place] [address], [place] [id number] Jun, [facility] [address] [id number] [place] [id number] Jun, [facility] [address] [id number] [address] [place] [address], [place] [id number] Jun, [facility] [address] [id number] [address] [place] [address], [place] [id number] Jun, [facility] [address] [id number] [address] [place] [address], [place] [id number] Jun, [facility] [address] [id number] [address] [place] [address], [place] [id number] May, [facility] [address] [id number] [address] [place] [address], [place] [address] May, [facility] [address] [id number] [address] [place] [address], [place] [id number] May, [facility] [address] [id number] [address] [place] [address], [place] [id number] May, [facility] [address] [id number] [address] [place] [address], [place] [id number] Apr, [facility] [address] [id number] [address] [place] [address], [place] [id number] Apr, [facility] [address] [id number] [address] [place] [address], [place] [id number] Apr, [facility] [address] [id number] [address] [place] [address], [place] [id number] Apr, [facility] [address] [id number] [address] [place] [address], [place] [id number] Apr, [facility] [address] [id number] [facility] [place] [address] Apr, [facility] [address] [id number] [address] [place] [address], [place] [id number] Apr, [facility] [address] [id number] [address] [place] [address], [place] [id number] Apr, [facility] [address] [id number] [address] [place] [address], [place] [id number] Apr, [facility] [address] [id number] [address] [place] [address], [place] [id number] Apr, [facility] [address] [id number] [address] [place] [address], [place] [id number] Apr, [facility] [address] [id number] [address] [place] [address], [place] [id number] Apr, [facility] [address] [id number] [address] [place] [id number] Apr, [facility] [address] [id number] [address] [place] [address], [place] [id number] Apr, [facility] [address] [id number] [address] [place] [id number] Apr, [facility] [address] [id number] [address] [place] [id number] Apr, [facility] [address] [id number] [address] [place] [id number] Apr, [facility] [address] [id number] [address] [place] [address], [place] [id number] Apr, [facility] [address] [id number] [address] [place] [id number] Apr, [facility] [address] [id number] [address] [place] [id number] Apr, [facility] [address] [id number] [address] [place] [address], [place] [id number] Mar, [facility] [address] [id number] [address] [place] [address], [place] [id number] Mar, [facility] [address] [id number] [address] [place] [address], [place] [id number] Mar, [facility] [address] [id number] [address] [place] [address], [place] [id number] Mar, [facility] [address] [id number] [address] [place] [address], [place] [id number] Mar, [facility] [address] [id number] [address] [place] [address], [place] [id number] Mar, [facility] [address] [id number] [address] [place] [address], [place] [id number] Mar, [facility] [address] [id number] [address] [place] [address], [place] [id number] Mar, [facility] [address] [id number] [address] [place] [address], [place] [id number] Mar, [facility] [address] [id number] [address] [place] [address], [place] [id number] Mar, [facility] [address] [id number] [address] [place] [address], [place] [id number] Feb, [facility] [address] [id number] [address] [place] [address], [place] [id number] Feb, [facility] [address] [id number] [address] [place] [address], [place] [id number] Feb, [facility] [address] [id number] [address] [place] [address], [place] [id number] Feb, [facility] [address] [id number] [address] [place] [address], [place] [id number] Jan, [facility] [address] [id number] [address] [place] [address], [place] [id number] Jan, [facility] [address] [id number] [address] [place] [address], [place] [id number] Jan, [facility] [address] [id number] [address] [place] [address], [place] [id number] Jan, [facility] [address] [id number] [address] [place] [address], [place] [id number] Jan, [facility] [address] [id number] [address] [place] [address], [place] [id number] Jan, [facility] [address] [id number] [address] [place] [address], [place] [id number] Dec, [facility] [address] [id number] [address] [place] [address], [place] [id number] Dec, [facility] [address] [id number] [address] [place] [address], [place] [id number] Nov, [facility] [address] [id number] [address] [place] [address], [place] [id number] Nov, [facility] [address] [id number] [address] [place] [address], [place] [id number] Nov, [facility] [address] [id number] [address] [place] [address], [place] [id number] Nov, [facility] [address] [id number] [address] [place] [address], [place] [id number] Nov, [facility] [address] [id number] [address] [place] [address], [place] [id number] Nov, [facility] [address] [id number] [address] [place] [address], [place] [id number] Sep, [facility] [address] [id number] [address] [place] [address], [place] [id number] Sep, [facility] [address] [id number] [address] [place] [address], [place] [id number] Sep, [facility] [address] [id number] [address] [place] [address], [place] [address] Sep, [facility] [address] [id number] [address] [place] [address], [place] [id number] Aug, [facility] [address] [id number] [address] [place] [address], [place] [id number] Aug, [facility] [address] [id number] [address] [place] [address], [place] [id number] Jul, [facility] [address] [id number] [address] [place] [address], [place] [id number] Jul, [facility] [address] [id number] [address] [place] [address], [place] [id number] Jun, [facility] [address] [id number] [address] [place] [address], [place] [id number] Jun, [facility] [address] [id number] [address] [place] [address], [place] [id number] Jun, [facility] [address] [id number] [address] [place] [address], [place] [id number] Jun, [facility] [address] [id number] [address] [place] [address], [place] [id number] May, [facility] [address] [id number] [address] [place] [address], [place] [id number] May, [facility] [address] [id number] [address] [place] [address], [place] [id number] May, [facility] [address] [id number] [address] [place] [address], [place] [address] May, [facility] [address] [id number] [address] [place] [address], [place] [id number] May, [facility] [address] [id number] [address] [place] [address], [place] [id number] May, [facility] [address] [id number] [address] [place] [address], [place] [id number] Apr, [facility] [address] [id number] [address] [place] [address], [place] [address] Apr, [facility] [address] [id number] [address] [place] [address], [place] [id number] Apr, [facility] [address] [id number] [address] [place] [address], [place] [id number] Apr, [facility] [address] [id number] [address] [place] [address], [place] [address] Mar, [facility] [address] [id number] [address] [place] [address], [place] [address] Mar, [facility] [address] [id number] [address] [place] [address], [place] [address] Mar, [facility] [address] [id number] [address] [place] [address], [place] [id number] Mar, [facility] [address] [id number] [address] [place] [address], [place] [id number] Feb, [facility] [address] [id number] [place] [id number] Jan, [facility] [address] [id number] [address] [place] [address], [place] [id number] Jan, [facility] [address] [id number] [address] [place] [address], [place] [id number] Dec, [facility] [address] [id number] [address] [place] [address], [place] [id number] Dec, [facility] [address] [id number] [address] [place] [address], [place] [address] Dec, [facility] [address] [id number] [place] [id number] Dec, [facility] [address] [id number] [address] [place] [address], [place] [id number] Nov, [facility] [address] [id number] [address] [place] [address], [place] [id number] 14 Nov, 2012 [facility] [address] [id number] [address] [place] [id number] Nov, [facility] [address] [id number] [address] [place] [id number] Nov, [facility] [address] [id number] [address] [place] [phone] Nov, [facility] [address] [facility] [id number] [address] [place] [id number] October, [facility] [address] [id number] [address] [place] [id number] October, [facility] [address] [facility] [id number] [address] [place] [id number] Aug, [facility] [address] [facility] [id number] [address] [place] [phone] Nov, IMMUNIZATIONS No Known Immunizations SOCIAL HISTORY Never Assessed REASON FOR VISIT Anxiety. PLAN OF CARE Activity Details Follow Up 4 Weeks Reason:anxiety & dep ression VITAL SIGNS MEDICATIONS Unknown Medications RESULTS No Results PROCEDURES Procedure Date Ordered Result Body Site Psychotherapy, patient &/family, 30 minutes, established pat iealex December 27, 2017 INSTRUCTIONS MEDICATIONS ADMINISTERED No Known Medications [...]
--- OUTSIDE RECORDS SUMMARY | 2019-11-29 09:26 | XMS REPORT ---
Author Author Curt CASTRO Organization [facility] Address [address] [place] [address] Care Team Providers Care Personal Service Workers Name Role Phone JADEN CASTROA Unavailable PROBLEMS Type Condition ICD9-CM Code BBO21-VS Code Onset Dates Condition S tatus SNOMED Code Problem Metabolic syndrome E88.81 Active 2 59745761 Problem Severe episode of recurrent major depressive disorder, without psychotic features F33.2 Active 61899090 Problem Anxiety F41.9 Active 08145462 Problem Depressive disorder, not elsewhere classified F32. 9 Active 65593831 Problem Sciatica, right side M54.31 Active [id number] Problem Mixed obsessional thoughts and acts F42.2 Active 86212577 Problem Vitamin D deficiency E55.9 Active 66412721 Problem DANIELA (generalized anxiety disorder) F41.1 Active 49170240 Problem BMI 45.0-49.9, adult Z68.42 Active 804685415 Problem Hyperlipemia E78.5 Active 1430620 4 Problem Major depression F32.9 Active 370 538401 Problem Insomnia G47.00 Active 621368181 Problem Renal insufficiency N28.9 Active 673933264 Problem Edema R60.9 Active 176956583 Problem Morbid obesity E66.01 Active 87246 6002 Problem Callus of foot L84 Active 60747 1005 Problem Benign essential hypertension I10 Active 5519998 Problem Recurrent major depressive disorder, in partial remission F33.41 Active 05850752 ALLERGIES Substance Reaction Event Type Date Status [place] Elm throat swells Drug Allergy Nov, Active Peanut (Diagnostic) throat swells Drug Allergy Nov, Active Egg White (Diagnostic) throat swells Drug Allergy Nov, Acti ve alternaria tenuis throat swells Non Drug Allergy Nov, Activ e Cows Milk throat swells Non Drug Allergy Nov, Active Wheat throat swells Non Drug Allergy Nov, Active Ragweed throat swells Non Drug Allergy Nov, Active ENCOUNTERS Encounter Location Date Diagnosis [facility] [address] [facility] [id number] [address] [place] [phone] Mar, [place] [address] [facility] [id number] [address] [place] [phone] Jan, Recurrent major depressive d isorder, in partial remission F33.41 ; Mixed obsessional thoughts and acts F42.2 and BMI 45.0-49.9, adult Z68.42 [facility] [address] [id number][place] [id number] Jan, [facility] [address] [id number], [place] [id number] Jan, Benign essential hypertension I10 ; BMI 45.0-49.9, adult Z68.42 ; Metabolic syndrome E88.81 and Allergic rhinitis, unspecified seasonality, unspecified trigger J30.9 [place] [address] [facility] [id number] [address] [place] [address] Dec, DANIELA (generalized anxiety dis order) F41.1 and Depressive disorder, not elsewhere classified F32.9 [facility] [address] [id number], [place] [id number] Dec, Recurrent major depressive disorder, in partial remission F33.41 [facility] [address] [id number], [place] [id number] Dec, [place] [address] [id number], [place] [id number] Nov, [place] [address] [id number], [place] [id number] Nov, Recurrent major depressive disorder, in partial remission F33.41 [place] [address] [facility] [id number] [address] [place] [address] Nov, Recurrent major depressive d isorder, in partial remission F33.41 ; Mixed obsessional thoughts and acts F42.2 ; DANIELA (generalized anxiety disorder) F41.1 and BMI 45.0-49.9, adult Z68.42 [facility] [address] [id number], [place] [id number] Nov, [facility] [address] [id number], [place] [id number] Nov, Other conjunctivitis of both eyes H10.89 and Sciatica, right side M54.31 [facility] [address] [id number], [place] [id number] Nov, [facility] [address] [id number], [place] [id number] Nov, [facility] [address] [id number], [place] [id number] October, [facility] [address] [id number], [place] [id number] October, [facility] [address] [facility] [id number] [address] [place] [address] October, BMI 45.0-49.9, adult Z68.42 ; Mixed obsessional thoughts and acts F42.2 ; Recurrent major depressive disorder, in partial remission F33.41 and DANIELA (generalized anxiety disorder) F41.1 [facility] [address] [id number], [place] [id number] October, Benign essential hypertension I10 ; Morb id obesity E66.01 and BMI 45.0-49.9, adult Z68.42 [facility] [address] [id number], [place] [id number] Sep, [facility] [address] [id number], [place] [id number] Sep, [facility] [address] [id number], [place] [id number] Sep, [facility] [place] [address] [place] [address] AVE [id number], [place] [id number] Sep, Hospital discharge follow-up Z09 ; Aller gic rhinitis, unspecified seasonality, unspecified trigger J30.9 and Shortness of breath R06.[address] [id number], [place] [id number] Sep, Recurrent major depressive disorder, in partial remission F33.[address] [id number], [place] [id number] 15 Aug, 2017 Irritable mood R45.4 [place] [address] [place] [address] 09 Aug, [address] [id number], [place] [id number] 22 Jul, 2017 Benign essential hypertension I10 ; Robert a R60.9 and Impacted cerumen of left ear H61.22 [place] [address] [facility] [id number] [address] [place] [phone] 14 Jul, 2017 Major depression F32.9 ; Rec urrent major depressive disorder, in partial remission F33.41 and Anxiety F41.9 [place] [address] [facility] [id number] [address] [place] [address] Jun, Major depression F32.9 ; Rec urrent major depressive disorder, in partial remission F33.41 and Anxiety F41.[address] [id number], [place] [id number] Jun, Major depression F32.9 ; Morbid obesity E66.01 ; Irritable mood R45.4 ; Hand weakness R29.898 and Vitamin D deficiency E55.[address] [id number], [place] [id number] Jun, [address] [id number], [place] [id number] May, Major depression F32.9 [place] [address] [facility] [id number] [address] [place] [address] May, Major depression F32.[address] [id number], [place] [id number] May, BMI 50.0-59.9, adult Z68.43 ; Major depr ession F32.9 ; Anxiety F41.9 ; Hypertrophic toenail L60.2 and Pain of left great toe M79.[address] [facility] [address] [id number], [place] [id number] May, Recurrent major depressive disorder, in partial remission F33.41 [facility] [address] [place] [address] Apr, [facility] [id number] [place] [id number] Apr, [facility] [address] [place] [address] Apr, Major depression F32.[id number] [place] [address] [id number] Apr, Severe episode of recurrent major depres sive disorder, without psychotic features F33.2 ; Anxiety F41.9 and Insomnia G47.00 [facility] [id number] [place] [id number] Apr, [facility] [address] [facility] [id number] [address] [place] [address] Apr, [facility] [id number] [place] [address] [id number] Apr, [facility] [id number] [place] [address] [id number] Mar, [facility] [id number] [place] [address] [id number] Mar, Allergic conjunctivitis of both eyes H10 .13 [facility] [address] [facility] [id number] [address] [place] [address] Mar, Major depression F32.9 [facility] [id number] [place] [address] [id number] Mar, Metabolic syndrome E88.81 ; History of g astric bypass Z98.890 ; Benign essential hypertension I10 and Allergic conjunctivitis of both eyes H10.13 [place] [address] [place] [id number] [place] [address] Mar, Major depression F32.9 [facility] [address] [id number], [place] [id number] Feb, [place] [address] [facility] [id number] [address] [place] [phone] Feb, Major depression F32.9 [facility] [address] [facility] [address] [id number] [place] [address] [id number] Feb, Subacute maxillary sinusitis J01.00 and Bronchitis J40 [place] [address] [facility] [id number] [address] [place] [address] Feb, Major depressive disorder, r ecurrent, moderate F33.1 [facility] [address] [id number], [place] [id number] Jan, [place] [id number] [place] [address] [id number] Jan, Acute non-recurrent maxillary sinusitis J01.00 and Skin tag L91.8 [place] [address] [facility] [address] [id number] [place] [address] [id number] Jan, Cough R05 and Sinus congestion R09.81 [place] [address] [facility] [address] [id number], [place] [id number] Jan, [place] [address] [id number] [place] [address] [id number] Jan, Benign essential hypertension I10 ; Hist ory of gastric bypass Z98.890 and Nausea and vomiting in adult R11.2 [place] [address] [facility] [id number] [address] [place] [address] Jan, Major depressive disorder, r ecurrent, moderate F33.1 [place] [address] [place] [id number] [address] [place] [address] Dec, Insomnia G47.00 ; Recurrent major depressive disorder, in partial remission F33.41 and Morbid obesity E66.01 [facility] [address] [facility] [address] [id number], [place] [id number] Dec, [facility] [address] [place] [address] AVE [id number], [place] [id number] Dec, Chronic bacterial conjunctivitis of left eye H10.[address] [id number], [place] [id number] Nov, [address] [id number], [place] [id number] Nov, Dental examination Z01.[address] [id number], [place] [id number] Nov, Benign essential hypertension I10 ; Hist ory of gastric bypass Z98.890 and Nausea and vomiting in adult R11.2 [place] [address] [place] [address] Nov, Major depressive disorder, r ecurrent, moderate F33.1 ; Generalized anxiety disorder F41.1 and Insomnia due to other mental disorder F51.[address] [place] [address] Nov, Recurrent major depressive d isorder, in partial remission F33.41 ; Insomnia G47.00 and Morbid obesity E66.01 [facility] [address] [place] [id number] [place] [id number] October, Abscess of left arm L02.414 [place] [address] [place] [address] October, Morbid obesity E66.01 ; Lida r depression F32.9 and Recurrent major depressive disorder, in partial remission F33.41 [place] [address] [facility] [id number], [place] [id number] Sep, Benign essential hypertension I10 ; Morb id obesity E66.01 ; S/P gastric bypass Z98.84 ; Abscess L02.91 and Chronic bacterial conjunctivitis of left eye H10.[address] [place] [address] [id number], [place] [id number] Sep, Dental examination Z01.20 [facility] [address] [facility] [id number] [address] [place] [address] Sep, Morbid obesity E66.01 ; Lida r depression F32.9 and Recurrent major depressive disorder, in partial remission F33.41 [place] [address] [facility] [id number] [address] [place] [address] Jul, [place] [address] [facility] [id number] [address] [place] [address] Jul, Major depressive disorder, r ecurrent, moderate F33.1 [place] [address] [place] [id number] [place] [address] Jul, Major depressive disorder, r ecurrent, moderate F33.1 and Generalized anxiety disorder F41.[address] [id number], [place] [id number] Jul, Cough R05 [place] [address] [facility] [id number] [address] [place] [address] 16 Jul, 2016 Morbid obesity E66.01 ; Lida r depression F32.9 and Recurrent major depressive disorder, in partial remission F33.[address] [place] [address] [id number], [place] [id number] Jul, [place] [address] [id number], [place] [id number] Jul, [place] [address] [id number], [place] [id number] Jul, Gastroenteritis K52.9 and Cough R[address] [place] [address] [id number], [place] [id number] Jun, Acute bacterial conjunctivitis of left e ye H10.32 [place] [address] [facility] [id number] [address] [place] [phone] Jun, [place] [address] [facility] [id number] [address] [place] [phone] Jun, Recurrent major depressive d isorder, in partial remission F33.41 [place] [address] [facility] [id number] [address] [place] [address] May, Major depression F32.9 and M orbid obesity E66.01 [place] [address] [facility] [id number] [address] [place] [address] May, [place] [id number] [place] [address] [id number] May, Thrush B37.0 [place] [address] [facility] [id number] [address] [place] [address] Apr, Major depressive disorder, r ecurrent, moderate F33.1 [place] [address] [facility] [id number] [address] [place] [address] Apr, Insomnia G47.00 ; Major depr ession F32.9 and Recurrent major depressive disorder, in partial remission F33.41 [place] [address] [facility] [id number] [address] [place] [address] Apr, [place] [address] [facility] [id number] [address] [place] [address] Apr, Major depression F32.9 and R ecurrent major depressive disorder, in partial remission F33.[address] [place] [address] [id number], [place] [id number] Mar, Benign essential hypertension I10 ; Morb id obesity E66.01 ; Impacted cerumen of both ears H61.23 ; Laceration of finger of right hand, initial encounter S61.219A and Encounter for immunization Z23 [place] [address] [facility] [id number] [address] [place] [address] 17 Mar, 2016 [place] [address] [facility] [id number] [place] [address] Mar, [facility] [address] [facility] [id number] [address] [place] [address] Mar, [facility] [address] [id number], [place] [id number] Feb, Nausea R11.0 ; Blood in the stool K92.1 and Benign essential hypertension I10 [facility] [address] [facility] [id number] [address] [place] [address] Feb, Major depression F32.9 and R ecurrent major depressive disorder, in partial remission F33.41 [facility] [address] [id number], [place] [id number] Feb, [facility] [address] [id number], [place] [id number] Feb, Recurrent major depressive disorder, in partial remission F33.41 [facility] [address] [id number], [place] [id number] Jan, [facility] [address] [id number], [place] [id number] Jan, Benign essential hypertension I10 ; Robert a R60.9 and Hyperlipidemia, unspecified hyperlipidemia type E78.5 [facility] [address] [id number], [place] [id number] Jan, Recurrent major depressive disorder, in partial remission F33.41 [facility] [place] [address] [id number] [place] [id number] Jan, [facility] [address] [id number], [place] [id number] Jan, [facility] [address] [id number], [place] [id number] Jan, [facility] [address] [facility] [id number] [address] [place] [address] Jan, [facility] [address] [place] [id number] [address] [place] [address] Dec, [facility] [address] [facility] [id number] [address] [place] [phone] Nov, [facility] [address] [place] [id number] [address] [place] [address] Nov, Major depression F32.9 [facility] [address] [place] [id number] [address] [place] [phone] Nov, [facility] [address] [place] [id number] [address] [place] [address] Nov, [place] [address] [address] Nov, Major depressive disorder, r ecurrent episode, mild F33.0 and Anxiety F41.[address] [place] [id number] [place] [address] [id number] Nov, [place] [id number] [place] [address] [id number] October, Left elbow pain M25.522 and Other season al allergic rhinitis J30.[id number] [place] [id number] October, [facility] [address] [place] [id number] [address] [place] [phone] October, Major depressive disorder, r ecurrent, moderate F33.1 [facility] [address] [place] [id number] [address] [place] [address] October, Major depression F32.9 [facility] [address] [place] [id number] [address] [place] [address] Sep, [place] or callus L84 and Onych omycosis B35.1 [facility] [address] [facility] [id number] [address] [place] [address] Sep, Major depressive disorder, r ecurrent, moderate F33.1 [place] [address] [place] [id number] [address] [place] [address] 18 Sep, [address] [facility] [address] [facility] [id number] [address] [place] [phone] 13 Sep, 2015 Moderate episode of recurren t major depressive disorder F33.1 [facility] [address] [place] [address] [id number] [place] [address] [id number] Sep, Muscle strain T14.8 [facility] [address] [facility] [id number] [address] [place] [address] Aug, Major depression F32.9 [place] [address] [facility] [id number] [address] [place] [phone] Aug, Major depression F32.9 [place] [address] [facility] [id number] [address] [place] [address] Jul, Morbid obesity E66.01 and Ma cora depression F32.9 [facility] [address] [facility] [id number] [address] [place] [phone] Jul, Depression, major, recurrent , moderate F33.1 [facility] [address] [place] [address] [id number] [place] [address] [id number] Jul, [place] [address] [facility] [id number] [address] [place] [phone] Jul, [facility] [address] [facility] [id number] [address] [place] [address] Jul, Major depression F32.9 and M orbid obesity E66.01 [facility] [address] [facility] [address] [id number], [place] [id number] Jul, Type II diabetes mellitus E11.9 ; Callus of foot L84 ; Benign essential hypertension I10 and Renal insufficiency N28.9 [facility] [address] [facility] [id number] [address] [place] [phone] 09 Jul, 2015 Depression, major, recurrent , moderate F33.1 [place] [address] [facility] [id number] [address] [place] [phone] 05 Jul, 2015 Major depression F32.9 [place] [address] [facility] [id number] [address] [place] [phone] Jul, [place] [address] [facility] [id number] [address] [place] [phone] Jun, Major depression F32.9 [place] [address] [facility] [id number] [address] [place] [phone] Jun, Major depressive disorder, r ecurrent, moderate F33.1 [place] [address] [id number] Jun, [place] [address] [address] [place] [id number] [place] [phone] Jun, Major depressive disorder, r ecurrent, moderate F33.1 and Major depression F32.9 [facility] [id number] [place] [id number] Jun, Type II diabetes mellitus E11.9 [place] [address] [address] [place] [id number] [address] [place] [id number] Jun, Depression, major, recurrent , moderate F33.1 [place] [address] [address] [place] [id number] [address] [place] [id number] May, Major depressive disorder, r ecurrent, moderate F33.1 [place] [address] [address] [facility] [id number] [address] [place] [id number] May, [facility] [id number] [place] [id number] May, Edema R60.9 [place] [address] [address] [facility] [id number] [address] [place] [id number] May, Insomnia G47.00 and Major de pression F32.9 [facility] [address] [id number] [id number] May, Morbid obesity E66.01 ; Edema R60.9 ; Sh ortness of breath R06.02 ; Benign essential hypertension I10 and Renal insufficiency N28.9 [place] [id number] [facility] [id number] [place] [id number] May, Hyperlipemia 272.4 and Renal insufficien cy N28.9 [place] [address] [address] [facility] [id number] [address] [place] [phone] Apr, Major depression F32.9 [place] [address] [address] [facility] [facility] [id number] [address] [place] [address] Apr, [place] [address] [address] [facility] [id number] [address] [place] [address] Apr, Major depressive disorder, r ecurrent, moderate F33.[id number] [place] [address] [id number] Apr, Type II diabetes mellitus E11.9 ; Benign essential hypertension I10 ; Edema R60.9 and Renal insufficiency N28.9 [place] [address] [address] [facility] [id number] [address] [place] [address] Mar, Major depressive disorder, r ecurrent, moderate F33.1 [place] [address] [address] [facility] [id number] [address] [place] [address] Mar, [place] [address] [address] [facility] [id number] [address] [place] [address] Mar, Major depression F32.[address] [id number] [place] [address] [id number] Mar, Morbid obesity E66.01 ; Benign essential hypertension I10 and Type II diabetes mellitus E11.9 [place] [address] [address] [facility] [id number] [address] [place] [address] Feb, Major depressive disorder, r ecurrent, moderate F33.1 [place] [address] [address] [facility] [id number] [address] [place] [address] Feb, Major depressive disorder, r ecurrent episode, in partial or unspecified remission 296.35 ; Anxiety state, unspecified 300.00 and Morbid obesity 278.01 [place] [address] [address] [place] [id number] [address] [place] [address] Feb, [address] [id number] [id number] Feb, Vomiting 787.03 and Viral syndrome 079.9 9 [place] [address] [address] [place] [id number] [address] [place] [address] 15 Feb, 2015 Major depression, recurrent 296.30 ; Generalized anxiety disorder 300.02 and No condition on [place] II V71.[address] [id number] [id number] Feb, Skin tag 701.9 [place] [id number] [address] [place] [address] Feb, [place] [address] [address] [place] [id number] [address] [place] [address] Jan, Depression, major, recurrent , moderate 296.[address] [id number] [place] [address] [id number] Jan, Nausea and vomiting 787.01 ; Rib pain on right side 786.50 and Fall on or from sidewalk curb E880.[id number] [place] [address] Jan, [place] [address] [address] [place] [id number] [address] [place] [address] Jan, Major depressive disorder, r ecurrent episode, in partial or unspecified remission 296.35 and Anxiety state, unspecified 300.[address] [id number] [id number] Jan, [address] [id number] [address] [place] [address] Jan, Depression, major, recurrent , moderate 296.32 [facility] [address] [facility] [id number] [address] [place] [address] 18 Jan, 2015 Major depression, recurrent 296.30 ; No condition on Naz[place] II V71.09 and No condition on axis III V71.[address] [facility] [address] [id number] [id number] 13 Jan, 2015 Drug-induced nausea and vomiting 787.01 [facility] [address] [place] [id number] [address] [place] [address] Jan, Depression, major, recurrent , moderate 296.32 [place] [address] [address] Dec, Depression, major, recurrent , moderate 296.32 [facility] [address] [id number] [id number] Dec, Morbid obesity 278.01 ; Metabolic syndro me 277.7 ; Hyperlipemia 272.4 ; Benign essential hypertension 401.1 ; Dietary counseling V65.3 ; Exercise counseling V65.41 and Inflamed skin tag 701.9 [place] [address] [id number] Dec, Depression, major, recurrent , moderate 296.32 [place] [address] [address] [place] [id number] [address] [place] [address] Dec, [facility] [address] [address] Dec, Major depression, recurrent 296.30 ; Anxiety, generalized 300.02 and No condition on [place] II V71.09 [place] [address] [address] Dec, Depression, major, recurrent , moderate 296.32 [place] [address] [address] Dec, Major depressive disorder, r ecurrent episode, moderate 296.32 [place] [address] [address] Dec, Depression, major, recurrent , moderate 296.32 [facility] [address] [place] [address] Dec, Depression, major, recurrent , moderate 296.32 [facility] [address] [place] [address] Dec, Depression, major, recurrent , moderate 296.32 [facility] [address] [place] [address] Dec, Depression, major, recurrent , moderate 296.32 [place] [address] [address] [place] [address] Nov, Depression, major, recurrent , moderate 296.32 [place] [address] [address] Nov, Major depression 296.20 ; So cial phobia 300.23 and No condition on [place] II V71.09 [place] [address] [address] Nov, Depression, major, recurrent , moderate 296.32 [place] [address] [address] [place] [id number] Nov, Major depressive disorder, r ecurrent episode, moderate 296.32 and Generalized anxiety disorder 300.02 [place] [address] [address] Nov, Depression, major, recurrent , moderate 296.32 [place] [address] [address] Nov, Depression, major, recurrent , moderate 296.32 [place] [address] [address] [place] [id number] October, Generalized anxiety disorder 300.02 ; No condition on [place] II V71.09 and Major depressive disorder, recurrent 296.30 [place] [address] [place] [address] 14 Sep, 2014 [facility] [address] [id number] [address] [place] [address], [place] [address] 13 Sep, 2014 [facility] [address] [id number] [address] [place] [address], [place] [address] 24 Aug, 2014 [facility] [address] [id number] [address] [place] [address], [place] [address] 24 Aug, 2014 [facility] [address] [id number] [address] [place] [address], [place] [address] 23 Aug, 2014 [facility] [address] [id number] [address] [place] [address], [place] [address] 23 Aug, 2014 [facility] [address] [id number] [address] [place] [address], [place] [address] 20 Aug, 2014 [facility] [address] [id number] [address] [place] [address], [place] [address] 20 Aug, 2014 [facility] [address] [id number] [address] [place] [address], [place] [address] 20 Aug, 2014 [facility] [address] [id number] [address] [place] [address], [place] [address] 20 Aug, 2014 [facility] [address] [id number] [address] [place] [address], [place] [address] 13 Aug, 2014 [facility] [address] [id number] [address] [place] [address], [place] [address] 13 Aug, 2014 [facility] [address] [id number] [address] [place] [address], [place] [address] 13 Aug, 2014 [facility] [address] [id number] [address] [place] [address], [place] [address] 13 Aug, 2014 [facility] [address] [id number] [address] [place] [address], [place] [address] 12 Aug, 2014 [facility] [address] [id number] [address] [place] [address], [place] [address] 12 Aug, 2014 [facility] [address] [id number] [address] [place] [address], [place] [address] Aug, [facility] [address] [id number] [address] [place] [address], [place] [address] Aug, [facility] [address] [id number] [address] [place] [address], [place] [address] Aug, [facility] [address] [id number] [address] [place] [address], [place] [address] Aug, [facility] [address] [id number] [address] [place] [address], [place] [address] Jul, [facility] [address] [id number] [address] [place] [address], [place] [address] Jul, [facility] [address] [id number] [address] [place] [address], [place] [address] Jul, [facility] [address] [id number] [address] [place] [address], [place] [address] Jul, [facility] [address] [id number] [address] [place] [address], [place] [address] Jul, [facility] [address] [id number] [address] [place] [address], [place] [address] Jul, [facility] [address] [id number] [address] [place] [address], [place] [address] Jun, [facility] [address] [id number] [address] [place] [address], [place] [address] Jun, [facility] [address] [id number] [address] [place] [address], [place] [address] Jun, [facility] [address] [id number] [address] [place] [address], [place] [address] Jun, [facility] [address] [id number] [address] [place] [address], [place] [address] Jun, [facility] [address] [id number] [address] [place] [address], [place] [address] Jun, [facility] [address] [id number] [address] [place] [address], [place] [address] Jun, [facility] [address] [id number] [address] [place] [address], [place] [address] Jun, [facility] [address] [id number] [address] [place] [address], [place] [address] Jun, [facility] [address] [id number] [address] [place] [address], [place] [address] Jun, [facility] [address] [id number] [address] [place] [address], [place] [address] Jun, [facility] [address] [id number] [address] [place] [address], [place] [address] Jun, [facility] [address] [id number] [place] [id number] Jun, [facility] [address] [id number] [address] [place] [address] Jun, [facility] [address] [id number] [address] [place] [address] Jun, [facility] [address] [id number] [address] [place] [address], [place] [address] Jun, [facility] [address] [id number] [address] [place] [address] May, [facility] [address] [id number] [address] [place] [address] May, [facility] [address] [id number] [address] [place] [address], [place] [address] May, [facility] [address] [id number] [address] [place] [address], [place] [address] May, [facility] [address] [id number] [address] [place] [address], [place] [address] Apr, [facility] [address] [id number] [address] [place] [address], [place] [address] Apr, [facility] [address] [id number] [address] [place] [address], [place] [address] Apr, [facility] [address] [id number] [address] [place] [address], [place] [address] Apr, [facility] [address] [id number] [address] [place] [address], [place] [address] Apr, [facility] [address] [id number] [address] [place] [address], [place] [address] Apr, [facility] [address] [id number] [address] [place] [address], [place] [address] Apr, [facility] [address] [id number] [address] [place] [address], [place] [address] Apr, [facility] [address] [id number] [address] [place] [address], [place] [address] Apr, [facility] [address] [id number] [address] [place] [address], [place] [address] Apr, [facility] [address] [id number] [address] [place] [address], [place] [address] Apr, [facility] [address] [id number] [address] [place] [address], [place] [address] Apr, [facility] [address] [id number] [address] [place] [address], [place] [address] Apr, [facility] [address] [id number] [address] [place] [address], [place] [address] Apr, [facility] [address] [id number] [address] [place] [address], [place] [address] Apr, [facility] [address] [id number] [address] [place] [address], [place] [address] Apr, [facility] [address] [id number] [address] [place] [address], [place] [address] Apr, [facility] [address] [id number] [address] [place] [address], [place] [address] Apr, [facility] [address] [id number] [address] [place] [address], [place] [address] Apr, [facility] [address] [id number] [address] [place] [address], [place] [address] Apr, [facility] [address] [id number] [address] [place] [address], [place] [address] Mar, [facility] [address] [id number] [address] [place] [address], [place] [address] Mar, [facility] [address] [id number] [address] [place] [address], [place] [address] Mar, [facility] [address] [id number] [address] [place] [address], [place] [address] Mar, [facility] [address] [id number] [address] [place] [address], [place] [address] Mar, [facility] [address] [id number] [address] [place] [address], [place] [address] Mar, [facility] [address] [id number] [address] [place] [address], [place] [address] Mar, [facility] [address] [id number] [address] [place] [address], [place] [address] Mar, [facility] [address] [id number] [address] [place] [address], [place] [address] Mar, [facility] [address] [id number] [address] [place] [address], [place] [address] Mar, [facility] [address] [id number] [address] [place] [address], [place] [address] Feb, [facility] [address] [id number] [address] [place] [address], [place] [address] Feb, [facility] [address] [id number] [address] [place] [address] [place] [address] Feb, [facility] [address] [id number] [address] [place] [address], [place] [address] Feb, [facility] [address] [id number] [address] [place] [address], [place] [address] Jan, [facility] [address] [id number] [address] [place] [address], [place] [address] Jan, [facility] [address] [id number] [address] [place] [address], [place] [address] Jan, [facility] [address] [id number] [address] [place] [address], [place] [address] Jan, [facility] [address] [id number] [address] [place] [address], [place] [address] Jan, [facility] [address] [id number] [address] [place] [address], [place] [address] Jan, [facility] [address] [id number] [address] [place] [address], [place] [address] Dec, [facility] [address] [id number] [address] [place] [address], [place] [address] Dec, [facility] [address] [id number] [address] [place] [address], [place] [address] Nov, [facility] [address] [id number] [address] [place] [address], [place] [address] Nov, [facility] [address] [id number] [address] [place] [address], [place] [address] Nov, [facility] [address] [id number] [address] [place] [address], [place] [address] Nov, [facility] [address] [id number] [address] [place] [address], [place] [address] Nov, [facility] [address] [id number] [address] [place] [address], [place] [address] Nov, [facility] [address] [id number] [address] [place] [address], [place] [address] Sep, [facility] [address] [id number] [address] [place] [address], [place] [address] Sep, [facility] [address] [id number] [address] [place] [address], [place] [address] Sep, [facility] [address] [id number] [address] [place] [address], [place] [address] Sep, [facility] [address] [id number] [address] [place] [address], [place] [address] Aug, [facility] [address] [id number] [address] [place] [address], [place] [address] Aug, [facility] [address] [id number] [address] [place] [address], [place] [address] Jul, [facility] [address] [id number] [address] [place] [address], [place] [address] Jul, [facility] [address] [id number] [address] [place] [address], [place] [address] Jun, [facility] [address] [id number] [address] [place] [address], [place] [address] Jun, [facility] [address] [id number] [address] [place] [address], [place] [address] Jun, [facility] [address] [id number] [address] [place] [address], [place] [address] Jun, [facility] [address] [id number] [address] [place] [address], [place] [address] May, [facility] [address] [id number] [address] [place] [address], [place] [address] May, [facility] [address] [id number] [address] [place] [address], [place] [address] May, [facility] [address] [id number] [address] [address] May, [facility] [address] [id number] [address] [place] [address], [place] [address] May, [facility] [address] [id number] [address] [place] [address], [place] [address] May, [facility] [address] [id number] [address] [place] [address], [place] [address] Apr, [facility] [address] [id number] [address] [place] [id number] Apr, [facility] [address] [id number] [address] [place] [address], [place] [address] Apr, [facility] [address] [id number] [address] [place] [address], [place] [address] Apr, [facility] [address] [id number] [address] [place] [address], [place] [address] Mar, [facility] [address] [id number] [address] [place] [address], [place] [address] Mar, [facility] [address] [id number] [address] [place] [phone] Mar, [facility] [address] [id number] [address] [place] [phone] Mar, [facility] [address] [id number] [address] [place] [phone] Feb, [facility] [id number] [place] [address] S [id number] Jan, [facility] [address] [id number] [address] [place] [address], [place] [address] Jan, [facility] [address] [id number] [address] [place] [phone] Dec, [facility] [address] [id number] [address] [place] [phone] Dec, [facility] [address] [id number] [address] [place] [id number] 10 Dec, 2012 [facility] [address] [id number] FANNY, Kiesha S [id number] Dec, [facility] [address] [id number] [address] [place] [id number] [address], [address] [facility] [address] [id number] [address] [place] [phone] Nov, [facility] [address] [id number] [address] [place] [phone] Nov, [facility] [address] [id number] [address] [place] [phone] Nov, [facility] [address] [facility] [id number] [address] [place] [phone] Nov, [facility] [address] [facility] [id number] [address] [place] [phone] October, [facility] [address] [id number] [address] [place] [phone] October, [facility] [address] [facility] [id number] [address] [place] [phone] Aug, [facility] [address] [facility] [id number] [address] [place] [phone] Nov, IMMUNIZATIONS No Known Immunizations SOCIAL HISTORY Never Assessed REASON FOR VISIT f/u-betsy henderson PLAN OF CARE Activity Details Follow Up 3 Months Reason: VITAL SIGNS Height 71.5 in 2017-12-05 Weight 361.6 lbs 2017-12-05 Heart Rate 68 bpm 2017-12-05 Respiratory Rate 20 2017-12-05 BMI 49.72 kg/m2 2017-12-05 Blood pressure systolic 120 mmHg 2017-12-05 Blood pressure diastolic 64 mmHg 2017-12-05 MEDICATIONS Medication Instructions Dosage Frequency Start Date End Date Duration S tatus Omeprazole 40 mg Orally Once a day 1 tablet 24h 45 d ays Active Zofran 8 MG Orally Once a day 1 tablet 24h A ctive Atenolol 100 mg 1 tablet Once a day Orally Active Montelukast Sodium 10 MG TAKE 1 TABLET BY MOUTH ONCE DAILY 90 Active Ketoconazole 2 % Externally Once a day 1 application to affected area 24 h Active Lisinopril 40 mg 1 tablet Once a day Orally Active Centrum - Active PredniSONE 20 mg Orally Once a day 2 tablet 24h Nov, Nov, 05 days Active Viibryd 40 mg Orally Once a day 1 tablet with food 24h May, Active Lasix 20 mg Orally Once a day as needed for swelling 1 tablet Active Polytrim 54035-9.1 UNIT/ML Ophthalmic Four times a day 1 drop in to affected eye 6h Nov, Nov, 07 days Active Baclofen 10 mg Orally Three times a day 1/2 tablet 8h Active Vitamin D-3 1000 UNIT Orally Once a day 2 capsule 24h Active Lamictal 25 MG Orally Once a day 2 tablet 24h Jun, Active Flonase 50 mcg/act nasally once per day 1 spray (50 mcg) in each nostril by intranasal route 2 times per day Nov, Active Flovent HFA 110 mcg/act inhalation once per day 1-3 Puffs 1 time pe r day October, 0 Active BusPIRone HCl 15 MG Orally Twice a day for anxiety 1 tablet 13 2016 Active Cetirizine HCl 10 mg Orally Once a day 1 tablet 24h Active Trazodone HCl 50 mg Orally Once a day- bedtime 1 tablet 13 Nov, 2016 Active RESULTS No Results PROCEDURES No Known [...] 03/2016 Hospitalization History gastric sleeve Hospitalization History [facility] Trouble with left shoulder blade 08/2017
--- OUTSIDE RECORDS SUMMARY | 2019-11-29 09:26 | XMS REPORT ---
Author Author Curt DIAZ [facility] Address [address] [place] [address] Care Team Providers Care Psychological Tests Sales Agent Name Role Phone JOE CHRIS Unavailable PROBLEMS Type Condition ICD9-CM Code [id number] Code Onset Dates Condition S tatus SNOMED Code Problem Metabolic syndrome E88.81 Active 2 44136295 Problem Severe episode of recurrent major depressive disorder, without psychotic features F33.2 Active 82320937 Problem Anxiety F41.9 Active 49682295 Problem Depressive disorder, not elsewhere classified F32. 9 Active 21293044 Problem Sciatica, right side M54.31 Active [id number] Problem Mixed obsessional thoughts and acts F42.2 Active 28199330 Problem Vitamin D deficiency E55.9 Active 30093898 Problem DANIELA (generalized anxiety disorder) F41.1 Active 69944564 Problem BMI 45.0-49.9, adult Z68.42 Active 879346688 Problem Hyperlipemia E78.5 Active 4947624 4 Problem Major depression F32.9 Active 370 901528 Problem Insomnia G47.00 Active 103185407 Problem Renal insufficiency N28.9 Active 179356421 Problem Edema R60.9 Active 860257186 Problem Morbid obesity E66.01 Active 19543 6002 Problem Callus of foot L84 Active 49552 1005 Problem Benign essential hypertension I10 Active 9275045 Problem Recurrent major depressive disorder, in partial remission F33.41 Active 07257959 ALLERGIES No Information ENCOUNTERS Encounter Location Date Diagnosis [facility] [address] [facility] [id number] [address] [place] [phone] Mar, [facility] [address] [facility] [id number] [address] [place] [phone] Jan, Recurrent major depressive d isorder, in partial remission F33.41 ; Mixed obsessional thoughts and acts F42.2 and BMI 45.0-49.9, adult Z68.42 [facility] [address] [id number], [place] [id number] Jan, [facility] [address] [id number], [place] [id number] Jan, Benign essential hypertension I10 ; BMI 45.0-49.9, adult Z68.42 ; Metabolic syndrome E88.81 and Allergic rhinitis, unspecified seasonality, unspecified trigger J30.9 [facility] [address] [place] [address] Dec, DANIELA (generalized anxiety dis order) F41.1 and Depressive disorder, not elsewhere classified F32.9 [facility] [address] [id number], [place] [id number] Dec, Recurrent major depressive disorder, in partial remission F33.41 [facility] [address] [id number], [place] [id number] Dec, [facility] [address] [id number], [place] [id number] Nov, [facility] [id number] [place] [address] [id number] Nov, Recurrent major depressive disorder, in partial remission F33.41 [facility] [address] [facility] [id number] [address] [place] [phone] Nov, Recurrent major depressive d isorder, in partial remission F33.41 ; Mixed obsessional thoughts and acts F42.2 ; DANIELA (generalized anxiety disorder) F41.1 and BMI 45.0-49.9, adult Z68.42 [facility] [address] [id number], [place] [id number] Nov, [facility] [address] [id number], [place] [id number] Nov, Other conjunctivitis of both eyes H10.89 and Sciatica, right side M54.31 [facility] [address] [id number], [place] [id number] Nov, [facility] [address] [id number], [place] [id number] Nov, [facility] [address] [id number], [place] [id number] October, [facility] [address] [id number], [place] [id number] October, [facility] [address] [facility] [id number] [address] [place] [phone] October, BMI 45.0-49.9, adult Z68.42 ; Mixed obsessional thoughts and acts F42.2 ; Recurrent major depressive disorder, in partial remission F33.41 and DANIELA (generalized anxiety disorder) F41.1 [facility] [address] [id number], [place] [id number] October, Benign essential hypertension I10 ; Morb id obesity E66.01 and BMI 45.0-49.9, adult Z68.42 [facility] [address] [id number], [place] [id number] Sep, [facility] [address] [id number], [place] [id number] Sep, [facility] [address] [id number], [place] [id number] Sep, [facility] [address] [id number], [place] [id number] Sep, Hospital discharge follow-up Z09 ; Aller gic rhinitis, unspecified seasonality, unspecified trigger J30.9 and Shortness of breath R06.02 [facility] [address] [id number], [place] [id number] Sep, Recurrent major depressive disorder, in partial remission F33.41 [facility] [address] [id number], [place] [id number] Aug, Irritable mood R45.4 [facility] [address] [facility] [id number] [address] [place] [phone] Aug, [facility] [address] [id number], [place] [id number] Jul, Benign essential hypertension I10 ; Robert a R60.9 and Impacted cerumen of left ear H61.22 [place] [address] [place] [id number] [place] [address] Jul, Major depression F32.9 ; Rec urrent major depressive disorder, in partial remission F33.41 and Anxiety F41.9 [place] [address] [place] [id number] [address] [place] [address] Jun, Major depression F32.9 ; Rec urrent major depressive disorder, in partial remission F33.41 and Anxiety F41.[address] [place] [place] [address] [id number], [place] [id number] Jun, Major depression F32.9 ; Morbid obesity E66.01 ; Irritable mood R45.4 ; Hand weakness R29.898 and Vitamin D deficiency E55.[address] [place] [address] [id number], [place] [id number] Jun, [place] [address] [id number], [place] [id number] May, Major depression F32.9 [place] [address] [facility] [id number] [address] [place] [address] May, Major depression F32.[address] [place] [address] [id number], [place] [id number] May, BMI 50.0-59.9, adult Z68.43 ; Major depr ession F32.9 ; Anxiety F41.9 ; Hypertrophic toenail L60.2 and Pain of left great toe M79.[address] [place] [address] [id number], [place] [id number] May, Recurrent major depressive disorder, in partial remission F33.41 [place] [address] [place] [id number] [address] [place] [address] Apr, [facility] [address] [id number], [place] [id number] Apr, [facility] [address] [facility] [id number] [address] [place] [address] Apr, Major depression F32.[address] [facility] [id number] [place] [address] [id number] Apr, Severe episode of recurrent major depres sive disorder, without psychotic features F33.2 ; Anxiety F41.9 and Insomnia G47.00 [facility] [address] [id number], [place] [id number] Apr, [facility] [address] [facility] [id number] [address] [place] [address] Apr, [facility] [address] [id number], [place] [id number] Apr, [facility] [address] [id number], [place] [id number] Mar, [facility] [id number] [place] [address] [id number] Mar, Allergic conjunctivitis of both eyes H10 .13 [facility] [address] [facility] [id number] [address] [place] [address] Mar, Major depression F32.[address] [facility] [address] [id number], [place] [id number] Mar, Metabolic syndrome E88.81 ; History of g astric bypass Z98.890 ; Benign essential hypertension I10 and Allergic conjunctivitis of both eyes H10.13 [facility] [address] [facility] [id number] [address] [place] [id number] Mar, Major depression F32.9 [facility] [address] [id number], [place] [id number] Feb, [facility] [address] [place] [id number] [address] [place] [address] 12 Feb, 2017 Major depression F32.9 [place] [address] [facility] [address] [id number] [place] [address] [id number] Feb, Subacute maxillary sinusitis J01.00 and Bronchitis J40 [place] [address] [facility] [id number] [address] [place] [phone] Feb, Major depressive disorder, r ecurrent, moderate F33.1 [facility] [address] [facility] [address] [id number], [place] [id number] Jan, [facility] [address] [id number] [place] [address] [id number] Jan, Acute non-recurrent maxillary sinusitis J01.00 and Skin tag L91.[id number] [place] [address] [id number] Jan, Cough R05 and Sinus congestion R09.[address] [id number], [place] [id number] Jan, [address] [id number] [place] [address] [id number] Jan, Benign essential hypertension I10 ; Hist ory of gastric bypass Z98.890 and Nausea and vomiting in adult R11.2 [place] [address] [facility] [id number] [address] [place] [address] Jan, Major depressive disorder, r ecurrent, moderate F33.1 [place] [address] [facility] [id number] [address] [place] [address] Dec, Insomnia G47.00 ; Recurrent major depressive disorder, in partial remission F33.41 and Morbid obesity E66.01 [facility] [address] [facility] [address] [id number] [place] [address] [id number] Dec, [address] [id number], [place] [id number] Dec, Chronic bacterial conjunctivitis of left eye H10.[address] [id number], [place] [id number] 27 Nov, [address] [id number], [place] [id number] Nov, Dental examination Z01.[address] [id number], [place] [id number] 23 Nov, 2016 Benign essential hypertension I10 ; Hist ory of gastric bypass Z98.890 and Nausea and vomiting in adult R11.2 [place] [address] [facility] [id number] [address] [place] [phone] 13 Nov, 2016 Major depressive disorder, r ecurrent, moderate F33.1 ; Generalized anxiety disorder F41.1 and Insomnia due to other mental disorder F51.05 [place] [address] [facility] [id number] [address] [place] [address] 12 Nov, 2016 Recurrent major depressive d isorder, in partial remission F33.41 ; Insomnia G47.00 and Morbid obesity E66.01 [facility] [id number] [place] [address] S [id number] October, Abscess of left arm L02.414 [place] [address] [facility] [id number] [address] [place] [phone] October, Morbid obesity E66.01 ; Lida r depression F32.9 and Recurrent major depressive disorder, in partial remission F33.41 [address] [id number], [place] [id number] Sep, Benign essential hypertension I10 ; Morb id obesity E66.01 ; S/P gastric bypass Z98.84 ; Abscess L02.91 and Chronic bacterial conjunctivitis of left eye H10.[address] [id number], [place] [id number] 17 Sep, 2016 Dental examination Z01.20 [facility] [address] [facility] [id number] [address] [place] [address] 11 Sep, 2016 Morbid obesity E66.01 ; Lida r depression F32.9 and Recurrent major depressive disorder, in partial remission F33.41 [facility] [address] [facility] [id number] [address] [place] [id number] Jul, [facility] [address] [facility] [id number] [address] [place] [phone] Jul, Major depressive disorder, r ecurrent, moderate F33.1 [place] [address] [facility] [id number] [address] [place] [address] Jul, Major depressive disorder, r ecurrent, moderate F33.1 and Generalized anxiety disorder F41.[address] [facility] [id number] [place] [address] [id number] Jul, Cough R05 [place] [address] [facility] [id number] [address] [place] [address] Jul, Morbid obesity E66.01 ; Lida r depression F32.9 and Recurrent major depressive disorder, in partial remission F33.[address] [facility] [id number] [place] [address] [id number] Jul, [facility] [id number] [place] [address] [id number] Jul, [place] [id number] [place] [address] [id number] Jul, Gastroenteritis K52.9 and Cough R05 [place] [id number] [place] [address] [id number] Jun, Acute bacterial conjunctivitis of left e ye H10.32 [place] [address] [facility] [id number] [address] [place] [phone] Jun, [place] [address] [facility] [id number] [address] [place] [phone] Jun, Recurrent major depressive d isorder, in partial remission F33.41 [place] [address] [facility] [id number] [address] [place] [address] May, Major depression F32.9 and M orbid obesity E66.01 [facility] [address] [facility] [id number] [address] [place] [phone] May, [facility] [address] [facility] [address] [id number] [place] [address] [id number] May, Thrush B37.0 [facility] [address] [facility] [id number] [address] [place] [phone] Apr, Major depressive disorder, r ecurrent, moderate F33.1 [facility] [address] [facility] [id number] [address] [place] [address] Apr, Insomnia G47.00 ; Major depr ession F32.9 and Recurrent major depressive disorder, in partial remission F33.41 [place] [address] [facility] [id number] [address] [place] [phone] Apr, [place] [address] [facility] [id number] [address] [place] [phone] Apr, Major depression F32.9 and R ecurrent major depressive disorder, in partial remission F33.[address] [id number] [place] [address] [id number] Mar, Benign essential hypertension I10 ; Morb id obesity E66.01 ; Impacted cerumen of both ears H61.23 ; Laceration of finger of right hand, initial encounter S61.219A and Encounter for immunization Z23 [facility] [address] [facility] [id number] [address] [place] [phone] Mar, [facility] [address] [facility] [id number] [address] [place] [phone] Mar, [place] [address] [facility] [id number] [address] [place] [address] Mar, [facility] [address] [place] [address] AVE [id number], [place] [id number] Feb, Nausea R11.0 ; Blood in the stool K92.1 and Benign essential hypertension I10 [facility] [address] [facility] [id number] [address] [place] [phone] Feb, Major depression F32.9 and R ecurrent major depressive disorder, in partial remission F33.[address] [facility] [address] [id number], [place] [id number] Feb, [facility] [address] [id number], [place] [id number] Feb, Recurrent major depressive disorder, in partial remission F33.[address] [facility] [address] [id number], [place] [id number] Jan, [facility] [address] [id number], [place] [id number] Jan, Benign essential hypertension I10 ; Robert a R60.9 and Hyperlipidemia, unspecified hyperlipidemia type E78.5 [facility] [address] [id number], [place] [id number] Jan, Recurrent major depressive disorder, in partial remission F33.41 [facility] [address] [id number] [place], [place] [id number] Jan, [facility] [address] [id number], [place] [id number] Jan, [facility] [address] [id number], [place] [id number] Jan, [facility] [address] [facility] [id number] [address] [place] [phone] Jan, [facility] [address] [facility] [id number] [address] [place] [address] Dec, [facility] [address] [facility] [id number] [address] [place] [phone] Nov, [facility] [address] [facility] [id number] [address] [place] [address] Nov, Major depression F32.9 [facility] [address] [facility] [id number] [address] [place] [phone] Nov, [facility] [address] [facility] [id number] [address] [place] [address] Nov, [place] [address] [place] [id number] [address] [place] [phone] Nov, Major depressive disorder, r ecurrent episode, mild F33.0 and Anxiety F41.[address] [id number], [place] [id number] Nov, [id number] [place] [address] [id number] October, Left elbow pain M25.522 and Other season al allergic rhinitis J30.[id number] [place] [address] [id number] October, [place] [address] [place] [address] October, Major depressive disorder, r ecurrent, moderate F33.1 [place] [address] [place] [id number] [address] [place] [address] October, Major depression F32.9 [place] [address] [place] [id number] [address] [place] [address] Sep, [place] or callus L84 and Onych omycosis B35.1 [place] [address] [place] [id number] [address] [place] [phone] Sep, Major depressive disorder, r ecurrent, moderate F33.1 [facility] [address] [facility] [id number] [address] [place] [address] Sep, Major depression F32.9 [place] [address] [place] [id number] [address] [place] [address] Sep, Moderate episode of recurren t major depressive disorder F33.1 [place] [address] [facility] [address] [id number] [place] [address] [id number] Sep, Muscle strain T14.8 [facility] [address] [facility] [id number] [address] [place] [address] Aug, Major depression F32.9 [facility] [address] [facility] [id number] [address] [place] [phone] Aug, Major depression F32.9 [facility] [address] [facility] [id number] [address] [place] [address] Jul, Morbid obesity E66.01 and Ma cora depression F32.9 [facility] [address] [facility] [id number] [address] [place] [address] Jul, Depression, major, recurrent , moderate F33.1 [facility] [address] [facility] [id number] [place] [address] [id number] Jul, [facility] [address] [facility] [id number] [address] [place] [id number] Jul, [facility] [address] [facility] [id number] [address] [place] [phone] Jul, Major depression F32.9 and M orbid obesity E66.01 [facility] [address] [facility] [address] [id number] [place] [address] [id number] Jul, Type II diabetes mellitus E11.9 ; Callus of foot L84 ; Benign essential hypertension I10 and Renal insufficiency N28.9 [facility] [address] [facility] [id number] [address] [place] [phone] Jul, Depression, major, recurrent , moderate F33.1 [facility] [address] [facility] [id number] [address] [place] [phone] Jul, Major depression F32.9 [facility] [address] [facility] [id number] [address] [place] [phone] Jul, [facility] [address] [facility] [id number] [address] [place] [phone] Jun, Major depression F32.9 [place] [address] [facility] [id number] [address] [place] [address] Jun, Major depressive disorder, r ecurrent, moderate F33.1 [place] [address] [facility] [id number] [address] [place] [phone] Jun, [place] [address] [facility] [id number] [address] [place] [phone] Jun, Major depressive disorder, r ecurrent, moderate F33.1 and Major depression F32.[address] [id number] [place] [id number] Jun, Type II diabetes mellitus E11.9 [place] [address] [address] [facility] [id number] [address] [place] [id number] Jun, Depression, major, recurrent , moderate F33.1 [place] [address] [address] [place] [id number] [address] [place] [id number] May, Major depressive disorder, r ecurrent, moderate F33.1 [place] [address] [address] [place] [id number] [address] [place] [id number] May, [address] [id number] [place] [id number] May, Edema R60.9 [place] [address] [address] [place] [id number] [address] [place] [id number] 17 May, 2015 Insomnia G47.00 and Major de pression F32.[address] [id number] [place] [id number] 15 May, 2015 Morbid obesity E66.01 ; Edema R60.9 ; Sh ortness of breath R06.02 ; Benign essential hypertension I10 and Renal insufficiency N28.[id number] [place] [id number] 14 May, 2015 Hyperlipemia 272.4 and Renal insufficien cy N28.9 [place] [address] [address] [facility] [id number] [address] [place] [id number] Apr, Major depression F32.9 [facility] [address] [facility] [id number] [address] [place] [phone] Apr, [place] [address] [address] [facility] [id number] [address] [place] [phone] Apr, Major depressive disorder, r ecurrent, moderate F33.[address] [facility] [address] [id number] [id number] Apr, Type II diabetes mellitus E11.9 ; Benign essential hypertension I10 ; Edema R60.9 and Renal insufficiency N28.9 [place] [address] [address] [facility] [id number] [address] [place] [phone] Mar, Major depressive disorder, r ecurrent, moderate F33.1 [place] [address] [place] [id number] [address] [place] [address] Mar, [place] [address] [facility] [id number] [address] [place] [address] Mar, Major depression F32.[id number] [place] [id number] Mar, Morbid obesity E66.01 ; Benign essential hypertension I10 and Type II diabetes mellitus E11.9 [place] [address] [facility] [id number] [address] [place] [id number] Feb, Major depressive disorder, r ecurrent, moderate F33.1 [place] [address] [facility] [id number] [address] [place] [id number] Feb, Major depressive disorder, r ecurrent episode, in partial or unspecified remission 296.35 ; Anxiety state, unspecified 300.00 and Morbid obesity 278.01 [place] [address] [facility] [id number] [address] [place] [address] Feb, [facility] [address] [id number] [id number] Feb, Vomiting 787.03 and Viral syndrome 079.9 9 [facility] [address] [facility] [id number] [address] [place] [address] 15 Feb, 2015 Major depression, recurrent 296.30 ; Generalized anxiety disorder 300.02 and No condition on [place] II V71.09 [facility] [address] [id number] [id number] Feb, Skin tag 701.9 [facility] [address] [facility] [id number] [address] [place] [address] Feb, [facility] [address] [facility] [id number] [address] [place] [address] Jan, Depression, major, recurrent , moderate 296.[address] [id number] [id number] Jan, Nausea and vomiting 787.01 ; Rib pain on right side 786.50 and Fall on or from sidewalk curb E880.1 [facility] [address] [place] [id number] [address] [place] [id number] Jan, [facility] [address] [facility] [id number] [address] [place] [id number] Jan, Major depressive disorder, r ecurrent episode, in partial or unspecified remission 296.35 and Anxiety state, unspecified 300.[address] [id number][place] [id number] Jan, [facility] [address] [facility] [id number] [address] [place] [address] Jan, Depression, major, recurrent , moderate 296.32 [facility] [address] [facility] [id number] [address] [place] [address] Jan, Major depression, recurrent 296.30 ; No condition on [place] II V71.09 and No condition on axis III V71.[address] [id number] [id number] Jan, Drug-induced nausea and vomiting 787.01 [place] [id number] [address] [place] [address] Jan, Depression, major, recurrent , moderate 296.[address] [address] Dec, Depression, major, recurrent , moderate 296.[address] [id number] [place] [id number] Dec, Morbid obesity 278.01 ; Metabolic syndro me 277.7 ; Hyperlipemia 272.4 ; Benign essential hypertension 401.1 ; Dietary counseling V65.3 ; Exercise counseling V65.41 and Inflamed skin tag 701.[address] [address] Dec, Depression, major, recurrent , moderate 296.[address] [address] Dec, [address] [address] Dec, Major depression, recurrent 296.30 ; Anxiety, generalized 300.02 and No condition on [place] II V71.[address] [address] Dec, Depression, major, recurrent , moderate 296.[address] [address] Dec, Major depressive disorder, r ecurrent episode, moderate 296.[address] [address] Dec, Depression, major, recurrent , moderate 296.[address] [address] Dec, Depression, major, recurrent , moderate 296.[address] [address] Dec, Depression, major, recurrent , moderate 296.32 [facility] [address] [place] [id number] [address] [place] [address] Dec, Depression, major, recurrent , moderate 296.32 [facility] [address] [place] [id number] [address] [place] [address] Nov, Depression, major, recurrent , moderate 296.32 [facility] [address] [address] Nov, Major depression 296.20 ; So cial phobia 300.23 and No condition on [place] II V71.09 [facility] [address] [address] Nov, Depression, major, recurrent , moderate 296.32 [place] [address] [address] Nov, Major depressive disorder, r ecurrent episode, moderate 296.32 and Generalized anxiety disorder 300.02 [facility] [address] [address] Nov, Depression, major, recurrent , moderate 296.32 [facility] [address] [address] Nov, Depression, major, recurrent , moderate 296.32 [facility] [address] [address] October, Generalized anxiety disorder 300.02 ; No condition on [place] II V71.09 and Major depressive disorder, recurrent 296.30 [facility] [address] [address] Sep, [facility] [address] [address] Sep, [facility] [address] [place] [id number] [address] [place] [address] Aug, [facility] [address] [address] Aug, 2014 [facility] [address] [id number] [facility] [place] [address] 23 Aug, 2014 [facility] [address] [id number] [facility] [place] [address] 23 Aug, 2014 [facility] [place] [facility] [address] [id number] [facility] [place] [address] 20 Aug, 2014 [facility] [place] [facility] [address] [id number] [address] [place] [address], [place] [address] 20 Aug, 2014 [facility] [place] [facility] [address] [id number] [address] [place] [address], [place] [address] 20 Aug, 2014 [facility] [place] [facility] [address] [id number] [address] [place] [address], [place] [address] 20 Aug, 2014 [facility] [place] [address] [id number] [address] [place] [address], [place] [address] 13 Aug, 2014 [facility] [place] [facility] [address] [id number] [address] [place] [address], [place] [address] 13 Aug, 2014 [facility] [place] [address] [id number] [address] [place] [address], [place] [address] 13 Aug, 2014 [facility] [address] [id number] [address] [place] [address], [place] [address] 13 Aug, 2014 [facility] [place] [facility] [address] [id number] [address] [place] [address], [place] [address] 12 Aug, 2014 [facility] [place] [address] [id number] [address] [place] [address], [place] [address] 12 Aug, 2014 [facility] [place] [facility] [address] [id number] [address] [place] [address], [place] [address] 10 Aug, 2014 [facility] [place] [facility] [address] [id number] [address] [place] [address], [place] [address] 10 Aug, 2014 [facility] [place] [facility] [address] [id number] [address] [place] [address], [place] [address] 09 Aug, 2014 [facility] [place] [facility] [address] [id number] [address] [address] Aug, [facility] [address] [id number] [address] [place] [address], [place] [address] Jul, [facility] [place] [facility] [address] [id number] [address] [place] [address], [place] [address] Jul, [facility] [address] [id number] [address] [place] [address], [place] [address] Jul, 2014 [facility] [place] [facility] [address] [id number] [address] [place] [address], [place] [address] Jul, [facility] [address] [id number] [address] [place] [address], [place] [address] Jul, [facility] [address] [id number] [address] [place] [address], [place] [address] Jul, [facility] [address] [id number] [address] [place] [address], [place] [address] Jun, [facility] [address] [id number] [address] [place] [address], [place] [address] Jun, [facility] [address] [id number] [address] [place] [address], [place] [address] Jun, [facility] [address] [id number] [address] [place] [address], [place] [address] Jun, [facility] [place] [facility] [address] [id number] [address] [place] [address], [place] [address] Jun, [facility] [address] [id number] [address] [place] [address], [place] [address] Jun, [facility] [place] [facility] [address] [id number] [address] [place] [address], [place] [address] Jun, [facility] [place] [facility] [address] [id number] [address] [place] [address], [place] [address] Jun, [facility] [place] [facility] [address] [id number] [address] [place] [address], [place] [address] Jun, [facility] [address] [id number] [address] [place] [address], [place] [address] Jun, [facility] [address] [id number] [address] [place] [address], [place] [address] Jun, [facility] [address] [id number] [address] [place] [address], [place] [address] Jun, [facility] [address] [id number] [place] [id number] Jun, [facility] [address] [id number] [address] [place] [address], [place] [address] Jun, [facility] [address] [id number] [address] [place] [address], [place] [address] Jun, [facility] [address] [id number] [address] [place] [address], [place] [address] Jun, [facility] [address] [id number] [address] [place] [address], [place] [address] May, [facility] [address] [id number] [address] [place] [address], [place] [address] May, [facility] [address] [id number] [address] [place] [address], [place] [address] May, [facility] [address] [id number] [address] [place] [address], [place] [address] May, [facility] [place] [facility] [address] [id number] [address] [place] [address] Apr, [facility] [place] [facility] [address] [id number] [address] [place] [address], [place] [address] Apr, [facility] [place] [facility] [address] [id number] [address] [place] [address], [place] [address] Apr, [facility] [place] [facility] [address] [id number] [address] [place] [address] Apr, [facility] [place] [facility] [address] [id number] [address] [place] [address] Apr, [facility] [place] [facility] [address] [id number] [address] [place] [address], [place] [address] Apr, [facility] [place] [facility] [address] [id number] [address] [place] [address], [place] [address] Apr, [facility] [place] [facility] [address] [id number] [address] [place] [address], [place] [address] Apr, [facility] [place] [facility] [address] [id number] [address] [place] [address], [place] [address] Apr, [facility] [place] [facility] [address] [id number] [address] [place] [address], [place] [address] Apr, [facility] [place] [facility] [address] [id number] [address] [place] [address], [place] [address] Apr, [facility] [place] [facility] [address] [id number] [address] [place] [address], [place] [address] Apr, [facility] [place] [facility] [address] [id number] [address] [place] [address], [place] [address] Apr, [facility] [place] [facility] [address] [id number] [address] [place] [address], [place] [address] Apr, [facility] [place] [facility] [address] [id number] [address] [place] [address], [place] [address] Apr, [facility] [place] [facility] [address] [id number] [address] [place] [address], [place] [address] Apr, [facility] [place] [facility] [address] [id number] [address] [place] [address], [place] [address] Apr, [facility] [place] [facility] [address] [id number] [address] [place] [address], [place] [address] Apr, [facility] [place] [facility] [address] [id number] [address] [place] [address], [place] [address] Apr, [facility] [place] [facility] [address] [id number] [address] [place] [address], [place] [address] Apr, [facility] [place] [facility] [address] [id number] [address] [place] [address], [place] [address] Mar, [facility] [place] [facility] [address] [id number] [address] [place] [address], [place] [address] Mar, [facility] [place] [facility] [address] [id number] [address] [place] [address], [place] [address] Mar, [facility] [place] [facility] [address] [id number] [address] [place] [address], [place] [address] Mar, [facility] [place] [facility] [address] [id number] [address] [place] [address], [place] [address] Mar, [facility] [place] [facility] [address] [id number] [address] [place] [address], [place] [address] Mar, [facility] [place] [facility] [address] [id number] [address] [place] [address], [place] [address] Mar, [facility] [place] [facility] [address] [id number] [address] [place] [address], [place] [address] Mar, [facility] [place] [facility] [address] [id number] [address] [place] [address], [place] [address] Mar, [facility] [place] [facility] [address] [id number] [address] [place] [address], [place] [address] Mar, [facility] [place] [facility] [address] [id number] [address] [place] [address], [place] [address] Feb, [facility] [place] [facility] [address] [id number] [address] [place] [address], [place] [address] Feb, [facility] [place] [facility] [address] [id number] [address] [place] [address], [place] [address] Feb, [facility] [place] [facility] [address] [id number] [address] [place] [address], [place] [address] Feb, [facility] [place] [facility] [address] [id number] [address] [place] [address], [place] [address] Jan, [facility] [place] [facility] [address] [id number] [address] [place] [address], [place] [address] Jan, [facility] [place] [facility] [address] [id number] [facility] [place] [address] Jan, [facility] [place] [facility] [address] [id number] [facility] [place] [address] Jan, [facility] [place] [facility] [address] [id number] [facility] [place] [address] Jan, [facility] [place] [facility] [address] [id number] [address] [place] [address], [place] [address] Jan, [facility] [place] [facility] [address] [id number] [facility] [place] [address] Dec, [facility] [place] [facility] [address] [id number] [address] [place] [address], [place] [address] Dec, [facility] [place] [facility] [address] [id number] [address] [place] [address], [place] [address] Nov, [facility] [place] [facility] [address] [id number] [address] [place] [address], [place] [address] Nov, [facility] [place] [facility] [address] [id number] [address] [place] [address], [place] [address] Nov, [facility] [place] [facility] [address] [id number] [address] [place] [address], [place] [address] Nov, [facility] [place] [facility] [address] [id number] [address] [place] [address], [place] [address] Nov, [facility] [place] [facility] [address] [id number] [address] [place] [address], [place] [address] Nov, [facility] [place] [facility] [address] [id number] [address] [place] [address], [place] [address] Sep, [facility] [place] [facility] [address] [id number] [address] [place] [address], [place] [address] Sep, [facility] [place] [facility] [address] [id number] [address] [place] [address], [place] [address] Sep, [facility] [place] [facility] [address] [id number] [address] [place] [address], [place] [address] Sep, [facility] [address] [id number] [address] [place] [address], [place] [address] Aug, [facility] [address] [id number] [address] [place] [address], [place] [address] Aug, [facility] [address] [id number] [address] [place] [address], [place] [address] Jul, [facility] [address] [id number] [address] [place] [address], [place] [address] Jul, [facility] [address] [id number] [address] [place] [address], [place] [address] Jun, [facility] [address] [id number] [address] [place] [address], [place] [address] Jun, [facility] [address] [id number] [address] [place] [address], [place] [address] Jun, [facility] [address] [id number] [address] [place] [address], [place] [address] Jun, [facility] [address] [id number] [address] [place] [address], [place] [address] May, [facility] [address] [id number] [address] [place] [address], [place] [address] 24 May, 2013 [facility] [address] [id number] [address] [place] [address], [place] [address] May, [facility] [address] [id number] [address] [place] [address], [place] [address] May, [facility] [address] [id number] [address] [place] [address], [place] [address] May, [facility] [address] [id number] [address] [place] [address], [place] [address] May, [facility] [address] [id number] [address] [place] [address], [place] [address] Apr, [facility] [address] [id number] [address] [place] [address], [place] [address] Apr, [facility] [address] [id number] [address] [place] [address], [place] [address] Apr, [facility] [address] [id number] [address] [place] [address], [place] [address] Apr, [facility] [address] [id number] [address] [place] [address], [place] [address] Mar, [facility] [address] [id number] [address] [place] [address], [place] [address] Mar, [facility] [address] [id number] [address] [place] [address], [place] [address] Mar, [facility] [address] [id number] [address] [place] [address], [place] [address] Mar, [facility] [address] [id number] [address] [place] [address], [place] [address] Feb, [facility] [address] [id number] [place] [id number] Jan, [facility] [address] [id number] [address] [place] [address], [place] [id number] Jan, [facility] [address] [id number] [address] [place] [address], [place] [id number] Dec, [facility] [address] [id number] [address] [place] [address], [place] [id number] Dec, [facility] [address] [id number] [address] [place] [address], [place] [id number] Dec, [facility] [address] [id number] [place] [id number] Dec, [facility] [address] [id number] [address] [place] [address], [place] [address] Nov, [facility] [address] [id number] [address] [place] [address], [place] [address] Nov, [facility] [address] [id number] [address] [place] [id number] Nov, [facility] [address] [id number] [address] [place] [id number] Nov, [facility] [address] [id number] [address] [place] [id number] Nov, [facility] [address] [facility] [id number] [address] [place] [id number] October, [facility] [address] [facility] [id number] [address] [place] [id number] October, [facility] [address] [facility] [id number] [address] [place] [id number] Aug, [facility] [address] [facility] [id number] [address] [place] [id number] Nov, IMMUNIZATIONS No Known Immunizations SOCIAL HISTORY Never Assessed REASON FOR VISIT Medication refill request PLAN OF CARE VITAL SIGNS MEDICATIONS Unknown [...] 03/2016 Hospitalization History gastric sleeve Hospitalization History [facility] Trouble with left shoulder blade 08/2017
--- OUTSIDE RECORDS SUMMARY | 2019-11-29 09:27 | XMS REPORT ---
Author Author Curt Astorga Organization [facility] Address Unknown Phone Unavailable Care Team Providers Care Insurance Sales Representative Name Role Phone RON Astorga Unavailable Unavailable PROBLEMS Type Condition ICD9-CM Code FRA28-AC Code Onset Dates Condition S tatus SNOMED Code Problem Metabolic syndrome E88.81 Active 2 17423625 Problem Severe episode of recurrent major depressive disorder, without psychotic features F33.2 Active 14403541 Problem Anxiety F41.9 Active 98188555 Problem Depressive disorder, not elsewhere classified F32. 9 Active 45058312 Problem Sciatica, right side M54.31 Active 029117672477246 Problem Mixed obsessional thoughts and acts F42.2 Active 39668782 Problem Vitamin D deficiency E55.9 Active 95455138 Problem DANIELA (generalized anxiety disorder) F41.1 Active 47710730 Problem BMI 45.0-49.9, adult Z68.42 Active 253581889 Problem Hyperlipemia E78.5 Active 1487578 4 Problem Major depression F32.9 Active 370 200489 Problem Insomnia G47.00 Active 638900602 Problem Renal insufficiency N28.9 Active 441789899 Problem Edema R60.9 Active 416890991 Problem Morbid obesity E66.01 Active 50087 6002 Problem Callus of foot L84 Active 32379 1005 Problem Benign essential hypertension I10 Active 7484094 Problem Recurrent major depressive disorder, in partial remission F33.41 Active 61508463 ALLERGIES No Information ENCOUNTERS Encounter Location Date Diagnosis [facility] [address] [id number] [address] [place] [id number] Mar, [facility] [address] [id number] [address] [place] [address] Jan, Recurrent major depressive d isorder, in partial remission F33.41 ; Mixed obsessional thoughts and acts F42.2 and BMI 45.0-49.9, adult Z68.42 [facility] [address] [place] [address] [id number] [id number] Jan, [facility] [address] [id number], [place] [id number] Jan, Benign essential hypertension I10 ; BMI 45.0-49.9, adult Z68.42 ; Metabolic syndrome E88.81 and Allergic rhinitis, unspecified seasonality, unspecified trigger J30.9 [facility] [address] [id number] [address] [place] [address] Dec, DANIELA (generalized anxiety dis order) F41.1 and Depressive disorder, not elsewhere classified F32.[address] [facility] [address] [id number], [place] [id number] Dec, Recurrent major depressive disorder, in partial remission F33.41 [facility] [address] [id number], [place] [id number] Dec, [facility] [address] [id number], [place] [id number] Nov, [facility] [id number] [place] [address] [id number] Nov, Recurrent major depressive disorder, in partial remission F33.41 [facility] [address] [id number] [address] [place] [address] Nov, Recurrent major depressive d isorder, in partial remission F33.41 ; Mixed obsessional thoughts and acts F42.2 ; DANIELA (generalized anxiety disorder) F41.1 and BMI 45.0-49.9, adult Z68.42 [facility] [address] [id number], [place] [id number] Nov, [facility] [address] [id number], [place] [id number] Nov, Other conjunctivitis of both eyes H10.89 and Sciatica, right side M54.31 [facility] [address] [id number], [place] [id number] Nov, [facility] [address] [id number], [place] [id number] Nov, [facility] [address] [id number], [place] [id number] October, [facility] [address] [id number], [place] [id number] October, [facility] [address] [id number] [address] [place] [address] October, BMI 45.0-49.9, adult Z68.42 ; Mixed obsessional thoughts and acts F42.2 ; Recurrent major depressive disorder, in partial remission F33.41 and DANIELA (generalized anxiety disorder) F41.1 [facility] [address] [id number], [place] [id number] October, Benign essential hypertension I10 ; Morb id obesity E66.01 and BMI 45.0-49.9, adult Z68.42 [facility] [address] [id number], [place] [id number] Sep, [facility] [address] [id number], [place] [id number] Sep, [facility] [address] [id number], [place] [id number] Sep, [facility] [address] [id number], [place] [id number] Sep, Hospital discharge follow-up Z09 ; Aller gic rhinitis, unspecified seasonality, unspecified trigger J30.9 and Shortness of breath R06.02 [facility] [address] [id number], [place] [id number] Sep, Recurrent major depressive disorder, in partial remission F33.41 [facility] [address] [id number], [place] [id number] Aug, Irritable mood R45.4 [facility] [address] [id number] [address] [place] [id number] Aug, [facility] [address] [id number], [place] [id number] Jul, Benign essential hypertension I10 ; Robert a R60.9 and Impacted cerumen of left ear H61.22 [facility] [address] [id number] [address] [place] [id number] 14 Jul, 2017 Major depression F32.9 ; Rec urrent major depressive disorder, in partial remission F33.41 and Anxiety F41.9 [place] [address] [id number] [address] [place] [address] Jun, Major depression F32.9 ; Rec urrent major depressive disorder, in partial remission F33.41 and Anxiety F41.[address] [place] [address] [id number], [place] [id number] Jun, Major depression F32.9 ; Morbid obesity E66.01 ; Irritable mood R45.4 ; Hand weakness R29.898 and Vitamin D deficiency E55.[address] [place] [address] [id number], [place] [id number] Jun, [place] [id number] [place] [address] [id number] May, Major depression F32.9 [place] [address] [id number] [address] [place] [address] May, Major depression F32.[address] [place] [id number] [place] [address] [id number] May, BMI 50.0-59.9, adult Z68.43 ; Major depr ession F32.9 ; Anxiety F41.9 ; Hypertrophic toenail L60.2 and Pain of left great toe M79.[address] [place] [address] [id number], [place] [id number] May, Recurrent major depressive disorder, in partial remission F33.41 [place] [address] [id number] [address] [place] [address] Apr, [facility] [address] [id number], [place] [id number] Apr, [facility] [address] [id number] [address] [place] [address] Apr, Major depression F32.9 [facility] [address] [id number], [place] [id number] Apr, Severe episode of recurrent major depres sive disorder, without psychotic features F33.2 ; Anxiety F41.9 and Insomnia G47.00 [facility] [address] [id number], [place] [id number] Apr, [facility] [address] [id number] [address] [place] [address] Apr, [facility] [address] [id number], [place] [id number] Apr, [facility] [address] [id number], [place] [id number] Mar, [facility] [address] [id number], [place] [id number] Mar, Allergic conjunctivitis of both eyes H10 .13 [facility] [address] [id number] [address] [place] [address] Mar, Major depression F32.9 [facility] [address] [id number], [place] [id number] Mar, Metabolic syndrome E88.81 ; History of g astric bypass Z98.890 ; Benign essential hypertension I10 and Allergic conjunctivitis of both eyes H10.13 [facility] [address] [id number] [address] [place] [address] Mar, Major depression F32.9 [facility] [address] [id number], [place] [id number] Feb, [facility] [address] [id number] [address] [place] [address] Feb, Major depression F32.9 [facility] [address] [facility] [address] [id number], [place] [id number] Feb, Subacute maxillary sinusitis J01.00 and Bronchitis J40 [facility] [address] [id number] [address] [place] [address] Feb, Major depressive disorder, r ecurrent, moderate F33.[address] [facility] [address] [id number], [place] [id number] Jan, [facility] [id number] [place] [address] [id number] Jan, Acute non-recurrent maxillary sinusitis J01.00 and Skin tag L91.8 [place] [address] [facility] [address] [id number] [place] [address] [id number] Jan, Cough R05 and Sinus congestion R09.81 [facility] [address] [place] [address] [address]VE [id number] [place] [address] [id number] Jan, [id number] [place] [address] [id number] Jan, Benign essential hypertension I10 ; Hist ory of gastric bypass Z98.890 and Nausea and vomiting in adult R11.2 [place] [address] [place] [id number] [address] [place] [address] Jan, Major depressive disorder, r ecurrent, moderate F33.1 [facility] [address] [place] [id number] [address] [place] [address] Dec, Insomnia G47.00 ; Recurrent major depressive disorder, in partial remission F33.41 and Morbid obesity E66.01 [facility] [address] [facility] [address] [id number] [place] [address] [id number] Dec, [facility] [address] [id number], [place] [id number] Dec, Chronic bacterial conjunctivitis of left eye H10.402 [facility] [id number] [place] [address] [id number] Nov, [address] [id number], [place] [id number] Nov, Dental examination Z01.20 [id number] [place] [address] [id number] 23 Nov, 2016 Benign essential hypertension I10 ; Hist ory of gastric bypass Z98.890 and Nausea and vomiting in adult R11.2 [place] [address] [place] [id number] [address] [place] [address] 13 Nov, 2016 Major depressive disorder, r ecurrent, moderate F33.1 ; Generalized anxiety disorder F41.1 and Insomnia due to other mental disorder F51.05 [place] [id number] [address] [place] [address] 12 Nov, 2016 Recurrent major depressive d isorder, in partial remission F33.41 ; Insomnia G47.00 and Morbid obesity E66.01 [facility] [address] [place] [place] [id number] [place] [address] [id number] October, Abscess of left arm L02.[address] [place] [address] October, Morbid obesity E66.01 ; Lida r depression F32.9 and Recurrent major depressive disorder, in partial remission F33.[address] [id number], [place] [id number] Sep, Benign essential hypertension I10 ; Morb id obesity E66.01 ; S/P gastric bypass Z98.84 ; Abscess L02.91 and Chronic bacterial conjunctivitis of left eye H10.[id number] [place] [address] [id number] Sep, Dental examination Z01.20 [place] [address] [place] [id number] [address] [place] [address] Sep, Morbid obesity E66.01 ; Lida r depression F32.9 and Recurrent major depressive disorder, in partial remission F33.41 [place] [address] [id number] [address] [place] [address] Jul, [facility] [address] [id number] [address] [place] [address] Jul, Major depressive disorder, r ecurrent, moderate F33.1 [facility] [address] [id number] [address] [place] [address] Jul, Major depressive disorder, r ecurrent, moderate F33.1 and Generalized anxiety disorder F41.1 [facility] [id number] [place] [address] [id number] Jul, Cough R05 [place] [address] [id number] [address] [place] [address] Jul, Morbid obesity E66.01 ; Lida r depression F32.9 and Recurrent major depressive disorder, in partial remission F33.41 [facility] [id number] [place] [address] [id number] Jul, [facility] [id number] [place] [address] [id number] Jul, [place] [id number] [place] [address] [id number] Jul, Gastroenteritis K52.9 and Cough R05 [facility] [id number] [place] [address] [id number] Jun, Acute bacterial conjunctivitis of left e ye H10.32 [facility] [address] [id number] [address] [place] [address] Jun, [facility] [address] [id number] [address] [place] [address] Jun, Recurrent major depressive d isorder, in partial remission F33.41 [facility] [address] [id number] [address] [place] [address] May, Major depression F32.9 and M orbid obesity E66.01 [facility] [address] [id number] [address] [place] [address] May, [place] [address] [facility] [address] [id number] [place] [address] [id number] May, Thrush B37.0 [facility] [address] [id number] [address] [place] [address] Apr, Major depressive disorder, r ecurrent, moderate F33.1 [facility] [address] [id number] [address] [place] [address] Apr, Insomnia G47.00 ; Major depr ession F32.9 and Recurrent major depressive disorder, in partial remission F33.41 [place] [address] [id number] [address] [place] [address] Apr, [place] [address] [id number] [address] [place] [id number] 02 Apr, 2016 Major depression F32.9 and R ecurrent major depressive disorder, in partial remission F33.[address] [id number], [place] [id number] Mar, Benign essential hypertension I10 ; Morb id obesity E66.01 ; Impacted cerumen of both ears H61.23 ; Laceration of finger of right hand, initial encounter S61.219A and Encounter for immunization Z23 [facility] [address] [id number] [address] [place] [address] 17 Mar, 2016 [facility] [address] [id number] [address] [place] [address] Mar, [place] [address] [id number] [address] [place] [address] Mar, [address] [id number], [place] [id number] 29 Feb, 2016 Nausea R11.0 ; Blood in the stool K92.1 and Benign essential hypertension I10 [place] [address] [id number] [address] [place] [address] Feb, Major depression F32.9 and R ecurrent major depressive disorder, in partial remission F33.[address] [facility] [address] [id number], [place] [id number] Feb, Recurrent major depressive disorder, in partial remission F33.[address] [facility] [address] [id number], [place] [id number] Feb, [facility] [address] [id number], [place] [id number] Jan, [facility] [address] [id number], [place] [id number] Jan, Benign essential hypertension I10 ; Robert a R60.9 and Hyperlipidemia, unspecified hyperlipidemia type E78.5 [facility] [address] [id number], [place] [id number] Jan, Recurrent major depressive disorder, in partial remission F33.41 [facility] [place] [address] [id number] [place] [id number] Jan, [facility] [address] [id number], [place] [id number] Jan, [facility] [address] [id number], [place] [id number] Jan, [facility] [address] [id number] [address] [place] [address] Jan, [facility] [address] [id number] [address] [place] [address] Dec, [facility] [address] [id number] [address] [place] [address] Nov, [facility] [address] [id number] [address] [place] [address] Nov, Major depression F32.9 [facility] [address] [id number] [address] [place] [address] Nov, [facility] [address] [id number] [address] [place] [address] Nov, [place] [address] [id number] [address] [place] [address] Nov, Major depressive disorder, r ecurrent episode, mild F33.0 and Anxiety F41.9 [facility] [address] [id number], [place] [id number] Nov, [facility] [id number] [place] [address] [id number] October, Left elbow pain M25.522 and Other season al allergic rhinitis J30.2 [facility] [address] [facility] [address] [id number] [place] [address] [id number] October, [place] [address] [facility] [id number] [address] [place] [address] October, Major depressive disorder, r ecurrent, moderate F33.1 [place] [address] [facility] [id number] [address] [place] [address] October, Major depression F32.9 [place] [address] [facility] [id number] [address] [place] [address] Sep, [place] or callus L84 and Onych omycosis B35.1 [place] [address] [place] [id number] [address] [place] [address] Sep, Major depressive disorder, r ecurrent, moderate F33.1 [place] [address] [facility] [id number] [address] [place] [address] Sep, Major depression F32.9 [place] [address] [facility] [id number] [address] [place] [address] Sep, Moderate episode of recurren t major depressive disorder F33.1 [facility] [address] [id number], [place] [id number] Sep, Muscle strain T14.8 [place] [address] [facility] [id number] [address] [place] [address] Aug, Major depression F32.9 [facility] [address] [id number] [address] [place] [address] Aug, Major depression F32.9 [facility] [address] [facility] [id number] [address] [place] [address] Jul, Morbid obesity E66.01 and Ma cora depression F32.9 [facility] [address] [facility] [id number] [address] [place] [address] Jul, Depression, major, recurrent , moderate F33.[address] [id number] [place] [address] [id number] Jul, [facility] [address] [facility] [id number] [address] [place] [address] Jul, [facility] [address] [place] [id number] [address] [place] [address] Jul, Major depression F32.9 and M orbid obesity E66.[address] [id number] [place] [address] [id number] Jul, Type II diabetes mellitus E11.9 ; Callus of foot L84 ; Benign essential hypertension I10 and Renal insufficiency N28.9 [facility] [address] [facility] [id number] [address] [place] [id number] 09 Jul, 2015 Depression, major, recurrent , moderate F33.1 [facility] [address] [facility] [facility] [id number] [address] [place] [id number] 05 Jul, 2015 Major depression F32.9 [facility] [address] [place] [id number] [address] [place] [address] Jul, [facility] [address] [facility] [id number] [address] [place] [address] Jun, Major depression F32.9 [facility] [address] [place] [id number] [address] [place] [address] Jun, Major depressive disorder, r ecurrent, moderate F33.1 [facility] [address] [facility] [id number] [address] [place] [id number] Jun, [facility] [address] [facility] [id number] [address] [place] [id number] Jun, Major depressive disorder, r ecurrent, moderate F33.1 and Major depression F32.[address] [place] [id number] [place] [address] [id number] Jun, Type II diabetes mellitus E11.9 [place] [address] [facility] [id number] [address] [place] [id number] Jun, Depression, major, recurrent , moderate F33.1 [place] [address] [facility] [id number] [address] [place] [phone] May, Major depressive disorder, r ecurrent, moderate F33.1 [place] [address] [place] [id number] [address] [place] [address] May, [id number] [place] [address] [id number] May, Edema R60.9 [place] [address] [place] [id number] [address] [place] [id number] 17 May, 2015 Insomnia G47.00 and Major de pression F32.[address] [place] [place] [id number] [place] [address] [id number] 15 May, 2015 Morbid obesity E66.01 ; Edema R60.9 ; Sh ortness of breath R06.02 ; Benign essential hypertension I10 and Renal insufficiency N28.[address] [place] [place] [id number] [place] [address] [id number] 14 May, 2015 Hyperlipemia 272.4 and Renal insufficien cy N28.9 [place] [address] [facility] [id number] [address] [place] [id number] Apr, Major depression F32.9 [place] [address] [address] [facility] [id number] [address] [place] [id number] Apr, [place] [address] [address] [facility] [id number] [address] [place] [id number] Apr, Major depressive disorder, r ecurrent, moderate F33.[address] [facility] [address] [id number] [id number] Apr, Type II diabetes mellitus E11.9 ; Benign essential hypertension I10 ; Edema R60.9 and Renal insufficiency N28.9 [place] [address] [address] [facility] [id number] [address] [place] [id number] Mar, Major depressive disorder, r ecurrent, moderate F33.1 [place] [address] [address] [facility] [id number] [address] [place] [id number] Mar, [place] [address] [facility] [id number] [address] [place] [id number] Mar, Major depression F32.[address] [facility] [address] [id number] [id number] Mar, Morbid obesity E66.01 ; Benign essential hypertension I10 and Type II diabetes mellitus E11.9 [place] [address] [address] [facility] [id number] [address] [place] [id number] Feb, Major depressive disorder, r ecurrent episode, in partial or unspecified remission 296.35 ; Anxiety state, unspecified 300.00 and Morbid obesity 278.01 [place] [address] [facility] [id number] [address] [place] [address] Feb, Major depressive disorder, r ecurrent, moderate F33.1 [place] [address] [facility] [id number] [address] [place] [address] Feb, [facility] [address] [id number] [id number] Feb, Vomiting 787.03 and Viral syndrome 079.9 9 [place] [address] [facility] [id number] [address] [place] [address] Feb, Major depression, recurrent 296.30 ; Generalized anxiety disorder 300.02 and No condition on [place] II V71.09 [facility] [address] [place] [address] AVE [id number] [id number] Feb, Skin tag 701.9 [facility] [address] [facility] [id number] [address] [place] [address] Feb, [facility] [address] [place] [id number] [address] [place] [address] Jan, Depression, major, recurrent , moderate 296.[address] [id number] [place] [id number] Jan, Nausea and vomiting 787.01 ; Rib pain on right side 786.50 and Fall on or from sidewalk curb E880.1 [facility] [address] [place] [id number] [address] [place] [address] Jan, [facility] [address] [place] [id number] [address] [place] [address] Jan, Major depressive disorder, r ecurrent episode, in partial or unspecified remission 296.35 and Anxiety state, unspecified 300.00 [facility] [address] [place] [address] [id number] [id number] Jan, [facility] [address] [facility] [id number] [address] [place] [address] Jan, Depression, major, recurrent , moderate 296.32 [facility] [address] [facility] [id number] [address] [place] [address] Jan, Major depression, recurrent 296.30 ; No condition on [place] II V71.09 and No condition on axis III V71.09 [facility] [address] [place], [place] [address] [id number] [id number] Jan, Drug-induced nausea and vomiting 787.01 [facility] [address] [place] [id number] [address] [place] [address] Jan, Depression, major, recurrent , moderate 296.32 [facility] [address] [facility] [id number] [address] [place] [address] Dec, Depression, major, recurrent , moderate 296.[address] [id number] [id number] Dec, Morbid obesity 278.01 ; Metabolic syndro me 277.7 ; Hyperlipemia 272.4 ; Benign essential hypertension 401.1 ; Dietary counseling V65.3 ; Exercise counseling V65.41 and Inflamed skin tag 701.9 [place] [address] [place] [id number] [address] [place] [address] Dec, Depression, major, recurrent , moderate 296.32 [place] [address] [address] Dec, [place] [address] [address] Dec, Major depression, recurrent 296.30 ; Anxiety, generalized 300.02 and No condition on [place] II V71.09 [place] [address] [address] Dec, Depression, major, recurrent , moderate 296.32 [place] [address] [place] [id number] [address] [place] [address] Dec, Major depressive disorder, r ecurrent episode, moderate 296.32 [place] [id number] [place] [address] Dec, Depression, major, recurrent , moderate 296.32 [place] [address] [place] [id number] [address] [place] [address] Dec, Depression, major, recurrent , moderate 296.32 [place] [address] [place] [id number] [address] [place] [address] Dec, Depression, major, recurrent , moderate 296.32 [place] [address] [place] [id number] [address] [place] [address] Dec, Depression, major, recurrent , moderate 296.32 [facility] [address] [address] Nov, Depression, major, recurrent , moderate 296.32 [facility] [address] [address] Nov, Major depression 296.20 ; So cial phobia 300.23 and No condition on [place] II V71.09 [facility] [address] [address] Nov, Depression, major, recurrent , moderate 296.32 [place] [address] [address] Nov, Major depressive disorder, r ecurrent episode, moderate 296.32 and Generalized anxiety disorder 300.02 [place] [address] [address] Nov, Depression, major, recurrent , moderate 296.32 [facility] [address] [address] Nov, Depression, major, recurrent , moderate 296.32 [facility] [address] [address] October, Generalized anxiety disorder 300.02 ; No condition on [place] II V71.09 and Major depressive disorder, recurrent 296.30 [facility] [address] [address] Sep, [facility] [address] [address] Sep, [place] [address] [address] Aug, [facility] [address] [address] Aug, [facility] [address] [place] [address] 23 Aug, 2014 [facility] [address] [id number] [address] [place] [address], [place] [address] 23 Aug, 2014 [facility] [address] [id number] [address] [place] [address], [place] [address] 20 Aug, 2014 [facility] [address] [id number] [address] [place] [address], [place] [address] 20 Aug, 2014 [facility] [address] [id number] [address] [place] [address], [place] [address] 20 Aug, 2014 [facility] [address] [id number] [address] [place] [address], [place] [address] 20 Aug, 2014 [facility] [address] [id number] [address] [place] [address], [place] [address] 13 Aug, 2014 [facility] [address] [id number] [address] [place] [address], [place] [address] 13 Aug, 2014 [facility] [address] [id number] [address] [place] [address], [place] [address] 13 Aug, 2014 [facility] [address] [id number] [address] [place] [address], [place] [address] 13 Aug, 2014 [facility] [address] [id number] [address] [place] [address], [place] [address] 12 Aug, 2014 [facility] [address] [id number] [address] [place] [address], [place] [address] 12 Aug, 2014 [facility] [address] [id number] [address] [place] [address], [place] [address] 10 Aug, 2014 [facility] [address] [id number] [address] [place] [address], [place] [address] 10 Aug, 2014 [facility] [address] [id number] [address] [place] [address], [place] [address] 09 Aug, 2014 [facility] [address] [id number] [address] [place] [address], [place] [address] 09 Aug, 2014 [facility] [address] [id number] [address] [place] [address], [place] [address] Jul, [facility] [address] [id number] [address] [place] [address], [place] [address] Jul, [facility] [address] [id number] [address] [place] [address], [place] [address] Jul, [facility] [address] [id number] [address] [place] [address], [place] [address] Jul, [facility] [address] [id number] [address] [place] [address], [place] [address] Jul, [facility] [address] [id number] [address] [place] [address], [place] [address] Jul, [facility] [address] [id number] [address] [place] [address], [place] [address] Jun, [facility] [address] [id number] [address] [place] [address], [place] [address] Jun, [facility] [address] [id number] [address] [place] [address], [place] [address] Jun, [facility] [address] [id number] [address] [place] [address], [place] [address] Jun, [facility] [address] [id number] [address] [place] [address], [place] [address] Jun, [facility] [address] [id number] [address] [place] [address], [place] [address] Jun, [facility] [address] [id number] [address] [place] [address], [place] [address] Jun, [facility] [address] [id number] [address] [place] [address], [place] [address] Jun, [facility] [address] [id number] [address] [place] [address], [place] [address] Jun, [facility] [address] [id number] [address] [place] [address] [place] [address] Jun, [facility] [address] [id number] [address] [place] [address], [place] [address] Jun, [facility] [address] [id number] [address] [place] [address], [place] [address] Jun, [facility] [address] [id number] [place] [id number] Jun, [facility] [address] [id number] [address] [place] [address], [place] [address] Jun, [facility] [address] [id number] [address] [place] [address], [place] [address] Jun, [facility] [address] [id number] [address] [place] [address], [place] [address] Jun, [facility] [address] [id number] [address] [place] [address], [place] [address] May, [facility] [address] [id number] [address] [place] [address], [place] [address] May, [facility] [address] [id number] [address] [place] [address], [place] [address] May, [facility] [address] [id number] [address] [place] [address], [place] [address] May, [facility] [address] [id number] [address] [place] [address], [place] [address] Apr, [facility] [address] [id number] [address] [place] [address], [place] [address] Apr, [facility] [address] [id number] [address] [place] [address], [place] [address] Apr, [facility] [address] [id number] [address] [place] [address], [place] [address] Apr, [facility] [address] [id number] [address] [place] [address], [place] [address] Apr, [facility] [address] [id number] [address] [place] [address], [place] [address] Apr, [facility] [address] [id number] [address] [place] [address], [place] [address] Apr, [facility] [address] [id number] [address] [place] [address], [place] [address] Apr, [facility] [address] [id number] [address] [place] [address], [place] [address] Apr, [facility] [address] [id number] [address] [place] [address], [place] [address] Apr, [facility] [address] [id number] [address] [place] [address], [place] [address] Apr, [facility] [address] [id number] [address] [place] [address], [place] [address] Apr, [facility] [address] [id number] [address] [place] [address], [place] [address] Apr, [facility] [address] [id number] [address] [place] [address], [place] [address] Apr, [facility] [address] [id number] [address] [place] [address], [place] [address] Apr, [facility] [address] [id number] [address] [place] [address], [place] [address] Apr, [facility] [address] [id number] [address] [place] [address], [place] [address] Apr, [facility] [address] [id number] [address] [place] [address], [place] [address] Apr, [facility] [address] [id number] [address] [place] [address], [place] [address] Apr, [facility] [address] [id number] [address] [place] [address], [place] [address] Apr, [facility] [address] [id number] [address] [place] [address], [place] [address] Mar, [facility] [address] [id number] [address] [place] [address], [place] [address] Mar, [facility] [address] [id number] [address] [place] [address], [place] [address] Mar, [facility] [address] [id number] [address] [place] [address], [place] [address] Mar, [facility] [address] [id number] [address] [place] [address], [place] [address] Mar, [facility] [address] [id number] [address] [place] [address], [place] [address] Mar, [facility] [address] [id number] [address] [place] [address], [place] [address] Mar, [facility] [address] [id number] [address] [place] [address], [place] [address] Mar, [facility] [address] [id number] [address] [place] [address], [place] [address] Mar, [facility] [address] [id number] [address] [place] [address], [place] [address] Mar, [facility] [address] [id number] [address] [place] [address], [place] [address] Feb, [facility] [address] [id number] [address] [place] [address], [place] [address] Feb, [facility] [address] [id number] [address] [place] [address], [place] [address] Feb, [facility] [address] [id number] [address] [place] [address], [place] [address] Feb, [facility] [address] [id number] [address] [place] [address], [place] [address] Jan, [facility] [address] [id number] [address] [place] [address], [place] [address] Jan, [facility] [address] [id number] [address] [place] [address] [place] [address] Jan, [facility] [address] [id number] [address] [place] [address], [place] [address] Jan, [facility] [address] [id number] [address] [place] [address], [place] [address] Jan, [facility] [address] [id number] [address] [place] [address], [place] [address] Jan, [facility] [address] [id number] [address] [place] [address], [place] [address] Dec, [facility] [address] [id number] [address] [place] [address], [place] [address] Dec, [facility] [address] [id number] [address] [place] [address], [place] [address] Nov, [facility] [address] [id number] [address] [place] [address], [place] [address] Nov, [facility] [address] [id number] [address] [place] [address], [place] [address] Nov, [facility] [address] [id number] [address] [place] [address], [place] [address] Nov, [facility] [address] [id number] [address] [place] [address], [place] [address] Nov, [facility] [address] [id number] [address] [place] [address], [place] [address] Nov, [facility] [address] [id number] [address] [place] [address], [place] [address] Sep, [facility] [address] [id number] [address] [place] [address], [place] [address] Sep, [facility] [address] [id number] [address] [place] [address], [place] [address] Sep, [facility] [address] [id number] [address] [place] [address], [place] [address] Sep, [facility] [address] [id number] [address] [place] [address], [place] [address] Aug, [facility] [address] [id number] [address] [place] [address], [place] [address] Aug, [facility] [address] [id number] [address] [place] [address], [place] [address] Jul, [facility] [address] [id number] [address] [place] [address], [place] [address] Jul, [facility] [address] [id number] [address] [place] [address], [place] [address] Jun, [facility] [address] [id number] [address] [place] [address], [place] [address] Jun, [facility] [address] [id number] [address] [place] [address], [place] [address] Jun, [facility] [address] [id number] [address] [place] [address], [place] [address] Jun, [facility] [address] [id number] [address] [place] [address], [place] [address] May, [facility] [address] [id number] [address] [place] [address], [place] [address] May, [facility] [address] [id number] [address] [place] [address], [place] [address] May, [facility] [address] [id number] [address] [place] [address], [place] [address] May, [facility] [address] [id number] [address] [place] [address], [place] [address] May, [facility] [address] [id number] [address] [place] [address], [place] [address] May, [facility] [address] [id number] [address] [place] [address], [place] [address] Apr, [facility] [address] [id number] [place] [address] Apr, [facility] [address] [id number] [address] [place] [address], [place] [address] Apr, [facility] [address] [id number] [address] [place] [address], [place] [address] Apr, [facility] [address] [id number] [address] [place] [address], [place] [address] Mar, [facility] [address] [id number] [address] [place] [address] Mar, [facility] [address] [id number] [address] [place] [address], [place] [address] Mar, [facility] [address] [id number] [address] [place] [address] Mar, [facility] [address] [id number] [address] [place] [address] Feb, [facility] [address] [id number] [place] [id number] Jan, [facility] [address] [id number] [address] [place] [address] Jan, [facility] [address] [id number] [address] [place] [address] Dec, [facility] [address] [id number] [address] [place] [address] Dec, [facility] [address] [id number] [address] [place] [address] Dec, [facility] [address] [id number] [place] [id number] Dec, [facility] [address] [id number] [address] [place] [address] Nov, [facility] [address] [id number] [address] [place] [address] 14 Nov, 2012 [facility] [address] [id number] [address] [place] [address] 12 Nov, 2012 [facility] [address] [facility] [id number] [address] [place] [address] Nov, [facility] [address] [facility] [id number] [address] [place] [id number] Nov, [facility] [address] [facility] [id number] [address] [place] [id number] October, [facility] [address] [facility] [id number] [address] [place] [id number] October, [facility] [address] [facility] [id number] [address] [place] [id number] Aug, [facility] [address] [facility] [id number] [address] [place] [id number] Nov, IMMUNIZATIONS No Known Immunizations SOCIAL HISTORY Never Assessed REASON FOR VISIT [facility] [place] Contact PLAN OF CARE Activity Details Follow Up 1 Week Reason:depression VITAL SIGNS MEDICATIONS Unknown Medications RESULTS [...] History gastric sleeve Hospitalization History [facility] ER Trouble with left shoulder blade 08/2017
--- OUTSIDE RECORDS SUMMARY | 2019-11-29 09:27 | XMS REPORT ---
Author Author Curt DIAZ [facility] Address [address] [place] [address] Care Team Providers Care Pin Game Machine Inspector Name Role Phone JOE CHRIS Unavailable PROBLEMS Type Condition ICD9-CM Code PBV32-ZT Code Onset Dates Condition S tatus SNOMED Code Problem Metabolic syndrome E88.81 Active 2 98978134 Problem Severe episode of recurrent major depressive disorder, without psychotic features F33.2 Active 46027919 Problem Anxiety F41.9 Active 56086523 Problem Depressive disorder, not elsewhere classified F32. 9 Active 26010498 Problem Sciatica, right side M54.31 Active [id number] Problem Mixed obsessional thoughts and acts F42.2 Active 61526344 Problem Vitamin D deficiency E55.9 Active 98699937 Problem DANIELA (generalized anxiety disorder) F41.1 Active 26422985 Problem BMI 45.0-49.9, adult Z68.42 Active 134328178 Problem Hyperlipemia E78.5 Active 7382887 4 Problem Major depression F32.9 Active 370 004049 Problem Insomnia G47.00 Active 193525426 Problem Renal insufficiency N28.9 Active 937345242 Problem Edema R60.9 Active 472987729 Problem Morbid obesity E66.01 Active 45005 6002 Problem Callus of foot L84 Active 99188 1005 Problem Benign essential hypertension I10 Active 8000624 Problem Recurrent major depressive disorder, in partial remission F33.41 Active 61423697 ALLERGIES No Information ENCOUNTERS Encounter Location Date Diagnosis [facility] [address] [facility] [id number] [address] [place] [phone] Mar, [facility] [address] [facility] [id number] [address] [place] [phone] Jan, Recurrent major depressive d isorder, in partial remission F33.41 ; Mixed obsessional thoughts and acts F42.2 and BMI 45.0-49.9, adult Z68.42 [facility] [address] [id number][place] [id number] Jan, [facility] [address] [id number], [place] [id number] Jan, Benign essential hypertension I10 ; BMI 45.0-49.9, adult Z68.42 ; Metabolic syndrome E88.81 and Allergic rhinitis, unspecified seasonality, unspecified trigger J30.9 [facility] [address] [place] [phone] Dec, DANIELA (generalized anxiety dis order) F41.1 and Depressive disorder, not elsewhere classified F32.9 [facility] [address] [facility] [address] [id number], [place] [id number] Dec, Recurrent major depressive disorder, in partial remission F33.41 [facility] [address] [id number], [place] [id number] Dec, [facility] [address] [id number], [place] [id number] Nov, [facility] [id number] [place] [address] [id number] Nov, Recurrent major depressive disorder, in partial remission F33.41 [facility] [address] [facility] [id number] [address] [place] [phone] Nov, Recurrent major depressive d isorder, in partial remission F33.41 ; Mixed obsessional thoughts and acts F42.2 ; DANIELA (generalized anxiety disorder) F41.1 and BMI 45.0-49.9, adult Z68.42 [facility] [address] [id number], [place] [id number] Nov, [facility] [address] [id number], [place] [id number] Nov, Other conjunctivitis of both eyes H10.89 and Sciatica, right side M54.31 [facility] [address] [id number], [place] [id number] Nov, [facility] [address] [id number][place] [id number] Nov, [facility] [address] [id number], [place] [id number] October, [facility] [address] [id number], [place] [id number] October, [facility] [address] [facility] [id number] [address] [place] [phone] October, BMI 45.0-49.9, adult Z68.42 ; Mixed obsessional thoughts and acts F42.2 ; Recurrent major depressive disorder, in partial remission F33.41 and DANIELA (generalized anxiety disorder) F41.1 [facility] [address] [id number], [place] [id number] October, Benign essential hypertension I10 ; Morb id obesity E66.01 and BMI 45.0-49.9, adult Z68.42 [facility] [address] [id number], [place] [id number] Sep, [facility] [address] [id number], [place] [id number] Sep, [facility] [address] [id number], [place] [id number] Sep, [facility] [address] [id number], [place] [id number] Sep, Hospital discharge follow-up Z09 ; Aller gic rhinitis, unspecified seasonality, unspecified trigger J30.9 and Shortness of breath R06.02 [facility] [address] [id number], [place] [id number] Sep, Recurrent major depressive disorder, in partial remission F33.41 [facility] [address] [id number], [place] [id number] Aug, Irritable mood R45.4 [facility] [address] [facility] [id number] [address] [place] [phone] Aug, [facility] [address] [id number], [place] [id number] Jul, Benign essential hypertension I10 ; Robert a R60.9 and Impacted cerumen of left ear H61.22 [place] [address] [place] [id number] [place] [phone] Jul, Major depression F32.9 ; Rec urrent major depressive disorder, in partial remission F33.41 and Anxiety F41.9 [place] [address] [place] [id number] [address] [place] [phone] Jun, Major depression F32.9 ; Rec urrent major depressive disorder, in partial remission F33.41 and Anxiety F41.[address] [place] [address] [id number], [place] [id number] Jun, Major depression F32.9 ; Morbid obesity E66.01 ; Irritable mood R45.4 ; Hand weakness R29.898 and Vitamin D deficiency E55.[address] [address] [id number], [place] [id number] Jun, [place] [address] [id number], [place] [id number] May, Major depression F32.9 [place] [address] [facility] [id number] [address] [place] [phone] May, Major depression F32.[address] [place] [place] [address] [id number], [place] [id number] May, BMI 50.0-59.9, adult Z68.43 ; Major depr ession F32.9 ; Anxiety F41.9 ; Hypertrophic toenail L60.2 and Pain of left great toe M79.[address] [address] [id number], [place] [id number] May, Recurrent major depressive disorder, in partial remission F33.41 [place] [address] [place] [id number] [address] [place] [phone] Apr, [facility] [address] [id number], [place] [id number] Apr, [facility] [address] [facility] [id number] [address] [place] [phone] Apr, Major depression F32.9 [facility] [id number] [place] [address] [id number] Apr, Severe episode of recurrent major depres sive disorder, without psychotic features F33.2 ; Anxiety F41.9 and Insomnia G47.00 [facility] [address] [id number], [place] [id number] Apr, [facility] [address] [facility] [id number] [address] [place] [phone] Apr, [facility] [address] [id number], [place] [id number] Apr, [facility] [address] [id number], [place] [id number] Mar, [facility] [id number] [place] [address] [id number] Mar, Allergic conjunctivitis of both eyes H10 .13 [facility] [address] [facility] [id number] [address] [place] [phone] Mar, Major depression F32.9 [facility] [address] [id number], [place] [id number] Mar, Metabolic syndrome E88.81 ; History of g astric bypass Z98.890 ; Benign essential hypertension I10 and Allergic conjunctivitis of both eyes H10.13 [facility] [address] [facility] [id number] [address] [place] [phone] Mar, Major depression F32.9 [facility] [address] [id number], [place] [id number] Feb, [facility] [address] [place] [id number] [address] [place] [phone] 12 Feb, 2017 Major depression F32.9 [place] [address] [facility] [id number] [place] [address] [id number] Feb, Subacute maxillary sinusitis J01.00 and Bronchitis J40 [place] [address] [facility] [id number] [address] [place] [phone] Feb, Major depressive disorder, r ecurrent, moderate F33.1 [facility] [address] [facility] [address] [id number], [place] [id number] Jan, [facility] [address] [id number] [place] [address] [id number] Jan, Acute non-recurrent maxillary sinusitis J01.00 and Skin tag L91.[id number] [place] [address] [id number] Jan, Cough R05 and Sinus congestion R09.[address] [id number], [place] [id number] Jan, [address] [id number] [place] [address] [id number] Jan, Benign essential hypertension I10 ; Hist ory of gastric bypass Z98.890 and Nausea and vomiting in adult R11.2 [place] [address] [facility] [id number] [address] [place] [phone] Jan, Major depressive disorder, r ecurrent, moderate F33.1 [place] [id number] [facility] [id number] [address] [place] [phone] Dec, Insomnia G47.00 ; Recurrent major depressive disorder, in partial remission F33.41 and Morbid obesity E66.01 [facility] [address] [facility] [address] [id number] [place] [address] [id number] Dec, [address] [id number], [place] [id number] Dec, Chronic bacterial conjunctivitis of left eye H10.[address] [id number], [place] [id number] 27 Nov, [address] [id number], [place] [id number] Nov, Dental examination Z01.[address] [id number], [place] [id number] 23 Nov, 2016 Benign essential hypertension I10 ; Hist ory of gastric bypass Z98.890 and Nausea and vomiting in adult R11.2 [place] [address] [facility] [id number] [address] [place] [phone] 13 Nov, 2016 Major depressive disorder, r ecurrent, moderate F33.1 ; Generalized anxiety disorder F41.1 and Insomnia due to other mental disorder F51.05 [place] [address] [facility] [id number] [address] [place] [phone] 12 Nov, 2016 Recurrent major depressive d isorder, in partial remission F33.41 ; Insomnia G47.00 and Morbid obesity E66.01 [facility] [id number] [place] [address] S [id number] October, Abscess of left arm L02.414 [place] [address] [facility] [id number] [address] [place] [phone] October, Morbid obesity E66.01 ; Lida r depression F32.9 and Recurrent major depressive disorder, in partial remission F33.41 [address] [id number], [place] [id number] Sep, Benign essential hypertension I10 ; Morb id obesity E66.01 ; S/P gastric bypass Z98.84 ; Abscess L02.91 and Chronic bacterial conjunctivitis of left eye H10.[address] [id number], [place] [id number] 17 Sep, 2016 Dental examination Z01.20 [facility] [address] [facility] [id number] [address] [place] [phone] 11 Sep, 2016 Morbid obesity E66.01 ; Lida r depression F32.9 and Recurrent major depressive disorder, in partial remission F33.41 [facility] [address] [facility] [id number] [address] [place] [phone] Jul, [facility] [address] [facility] [id number] [address] [place] [phone] Jul, Major depressive disorder, r ecurrent, moderate F33.1 [place] [address] [facility] [id number] [address] [place] [phone] Jul, Major depressive disorder, r ecurrent, moderate F33.1 and Generalized anxiety disorder F41.1 [facility] [id number] [place] [address] [id number] Jul, Cough R05 [place] [address] [facility] [id number] [address] [place] [phone] Jul, Morbid obesity E66.01 ; Lida r depression F32.9 and Recurrent major depressive disorder, in partial remission F33.41 [facility] [id number] [place] [address] [id number] Jul, [facility] [id number] [place] [address] [id number] Jul, [place] [id number] [place] [address] [id number] Jul, Gastroenteritis K52.9 and Cough R05 [place] [id number] [place] [address] [id number] Jun, Acute bacterial conjunctivitis of left e ye H10.32 [place] [address] [facility] [id number] [address] [place] [phone] Jun, [place] [address] [facility] [id number] [address] [place] [phone] Jun, Recurrent major depressive d isorder, in partial remission F33.41 [place] [address] [facility] [id number] [address] [place] [phone] May, Major depression F32.9 and M orbid obesity E66.01 [facility] [address] [facility] [id number] [address] [place] [phone] May, [facility] [address] [facility] [id number] [place] [address] [id number] May, Thrush B37.0 [facility] [address] [facility] [id number] [address] [place] [phone] Apr, Major depressive disorder, r ecurrent, moderate F33.1 [facility] [address] [facility] [id number] [address] [place] [phone] Apr, Insomnia G47.00 ; Major depr ession F32.9 and Recurrent major depressive disorder, in partial remission F33.41 [place] [id number] [facility] [id number] [address] [place] [phone] Apr, [place] [address] [facility] [id number] [address] [place] [phone] Apr, Major depression F32.9 and R ecurrent major depressive disorder, in partial remission F33.[address] [id number] [place] [address] [id number] Mar, Benign essential hypertension I10 ; Morb id obesity E66.01 ; Impacted cerumen of both ears H61.23 ; Laceration of finger of right hand, initial encounter S61.219A and Encounter for immunization Z23 [facility] [address] [facility] [id number] [address] [place] [phone] Mar, [facility] [address] [facility] [id number] [address] [place] [phone] Mar, [place] [address] [facility] [id number] [address] [place] [phone] Mar, [facility] [address] [place] [address] AVE [id number], [place] [id number] Feb, Nausea R11.0 ; Blood in the stool K92.1 and Benign essential hypertension I10 [facility] [address] [facility] [id number] [address] [place] [phone] Feb, Major depression F32.9 and R ecurrent major depressive disorder, in partial remission F33.[address] [facility] [address] [id number], [place] [id number] Feb, [facility] [address] [id number], [place] [id number] Feb, Recurrent major depressive disorder, in partial remission F33.[address] [facility] [address] [id number], [place] [id number] Jan, [facility] [address] [id number], [place] [id number] Jan, Benign essential hypertension I10 ; Robert a R60.9 and Hyperlipidemia, unspecified hyperlipidemia type E78.5 [facility] [address] [id number], [place] [id number] Jan, Recurrent major depressive disorder, in partial remission F33.41 [facility] [address] [id number] [place], [place] [id number] Jan, [facility] [address] [id number], [place] [id number] Jan, [facility] [address] [id number], [place] [id number] Jan, [facility] [address] [facility] [id number] [address] [place] [phone] Jan, [facility] [address] [facility] [id number] [address] [place] [phone] Dec, [facility] [address] [facility] [id number] [address] [place] [phone] Nov, [facility] [address] [facility] [id number] [address] [place] [phone] Nov, Major depression F32.9 [facility] [address] [facility] [id number] [address] [place] [phone] Nov, [facility] [address] [facility] [id number] [address] [place] [phone] Nov, [place] [address] [place] [id number] [address] [place] [phone] Nov, Major depressive disorder, r ecurrent episode, mild F33.0 and Anxiety F41.[address] [id number], [place] [id number] Nov, [address] [id number] [place] [address] [id number] October, Left elbow pain M25.522 and Other season al allergic rhinitis J30.[id number] [place] [address] [id number] October, [place] [id number] [place] [phone] October, Major depressive disorder, r ecurrent, moderate F33.1 [place] [address] [place] [id number] [address] [place] [phone] October, Major depression F32.9 [place] [address] [place] [id number] [address] [place] [phone] Sep, Brave or callus L84 and Onych omycosis B35.1 [place] [address] [place] [id number] [address] [place] [phone] Sep, Major depressive disorder, r ecurrent, moderate F33.1 [facility] [address] [facility] [id number] [address] [place] [phone] Sep, Major depression F32.9 [place] [address] [place] [id number] [address] [place] [phone] Sep, Moderate episode of recurren t major depressive disorder F33.1 [place] [address] [facility] [id number] [place] [address] [id number] Sep, Muscle strain T14.8 [facility] [address] [facility] [id number] [address] [place] [phone] Aug, Major depression F32.9 [facility] [address] [facility] [id number] [address] [place] [phone] Aug, Major depression F32.9 [facility] [address] [facility] [id number] [address] [place] [phone] Jul, Morbid obesity E66.01 and Ma cora depression F32.9 [facility] [address] [facility] [id number] [address] [place] [phone] Jul, Depression, major, recurrent , moderate F33.1 [facility] [address] [facility] [address] [id number] [place] [address] [phone] Jul, [facility] [address] [facility] [id number] [address] [place] [phone] Jul, [facility] [address] [facility] [id number] [address] [place] [phone] Jul, Major depression F32.9 and M orbid obesity E66.01 [facility] [address] [facility] [id number] [place] [address] [id number] Jul, Type II diabetes mellitus E11.9 ; Callus of foot L84 ; Benign essential hypertension I10 and Renal insufficiency N28.9 [facility] [address] [facility] [id number] [address] [place] [phone] Jul, Depression, major, recurrent , moderate F33.1 [facility] [address] [facility] [id number] [address] [place] [phone] Jul, Major depression F32.9 [facility] [address] [facility] [id number] [address] [place] [phone] Jul, [facility] [address] [facility] [id number] [address] [place] [phone] Jun, Major depression F32.9 [place] [address] [facility] [id number] [address] [place] [phone] Jun, Major depressive disorder, r ecurrent, moderate F33.1 [place] [address] [facility] [id number] [address] [place] [phone] Jun, [place] [address] [facility] [id number] [address] [place] [phone] Jun, Major depressive disorder, r ecurrent, moderate F33.1 and Major depression F32.[id number] [place] [address] [id number] Jun, Type II diabetes mellitus E11.9 [place] [address] [facility] [id number] [address] [place] [phone] Jun, Depression, major, recurrent , moderate F33.1 [place] [address] [place] [id number] [address] [place] [phone] May, Major depressive disorder, r ecurrent, moderate F33.1 [place] [address] [place] [id number] [address] [place] [phone] May, [id number] [place] [address] [id number] May, Edema R60.9 [place] [address] [place] [id number] [address] [place] [phone] 17 May, 2015 Insomnia G47.00 and Major de pression F32.[id number] [place] [address] [id number] 15 May, 2015 Morbid obesity E66.01 ; Edema R60.9 ; Sh ortness of breath R06.02 ; Benign essential hypertension I10 and Renal insufficiency N28.[id number] [place] [address] [id number] 14 May, 2015 Hyperlipemia 272.4 and Renal insufficien cy N28.9 [place] [address] [address] [facility] [id number] [address] [place] [phone] Apr, Major depression F32.9 [facility] [address] [facility] [id number] [address] [place] [address] Apr, [place] [address] [address] [facility] [id number] [address] [place] [address] Apr, Major depressive disorder, r ecurrent, moderate F33.1 [facility] [address] [id number] [id number] Apr, Type II diabetes mellitus E11.9 ; Benign essential hypertension I10 ; Edema R60.9 and Renal insufficiency N28.9 [place] [address] [address] [facility] [id number] [address] [place] [address] Mar, Major depressive disorder, r ecurrent, moderate F33.1 [place] [address] [address] [place] [id number] [address] [place] [address] Mar, [place] [address] [address] [facility] [id number] [address] [place] [address] Mar, Major depression F32.[id number] [place] [id number] Mar, Morbid obesity E66.01 ; Benign essential hypertension I10 and Type II diabetes mellitus E11.9 [place] [address] [address] [facility] [id number] [address] [place] [address] Feb, Major depressive disorder, r ecurrent, moderate F33.1 [place] [address] [address] [facility] [id number] [address] [place] [address] Feb, Major depressive disorder, r ecurrent episode, in partial or unspecified remission 296.35 ; Anxiety state, unspecified 300.00 and Morbid obesity 278.01 [place] [address] [address] [facility] [id number] [address] [place] [address] Feb, [facility] [address] [id number] [id number] Feb, Vomiting 787.03 and Viral syndrome 079.9 9 [facility] [address] [facility] [id number] [address] [place] [address] 15 Feb, 2015 Major depression, recurrent 296.30 ; Generalized anxiety disorder 300.02 and No condition on [place] II V71.09 [facility] [address] [facility] [address] [id number] [id number] Feb, Skin tag 701.9 [facility] [address] [facility] [id number] [address] [place] [address] Feb, [facility] [address] [facility] [id number] [address] [place] [address] Jan, Depression, major, recurrent , moderate 296.[address] [id number][place] [id number] Jan, Nausea and vomiting 787.01 ; Rib pain on right side 786.50 and Fall on or from sidewalk curb E880.1 [facility] [address] [place] [id number] [address] [place] [address] Jan, [facility] [address] [facility] [id number] [address] [place] [address] Jan, Major depressive disorder, r ecurrent episode, in partial or unspecified remission 296.35 and Anxiety state, unspecified 300.[address] [id number][place] [id number] Jan, [facility] [address] [facility] [id number] [address] [place] [address] Jan, Depression, major, recurrent , moderate 296.32 [facility] [address] [facility] [id number] [address] [place] [address] Jan, Major depression, recurrent 296.30 ; No condition on [place] II V71.09 and No condition on axis III V71.[address] [id number][place] [id number] Jan, Drug-induced nausea and vomiting 787.01 [place] [id number] [address] [place] [address] Jan, Depression, major, recurrent , moderate 296.[address] [address] Dec, Depression, major, recurrent , moderate 296.[address] [id number] [place] [id number] Dec, Morbid obesity 278.01 ; Metabolic syndro me 277.7 ; Hyperlipemia 272.4 ; Benign essential hypertension 401.1 ; Dietary counseling V65.3 ; Exercise counseling V65.41 and Inflamed skin tag 701.[address] [address] Dec, Depression, major, recurrent , moderate 296.[address] [address] Dec, [address] [address] Dec, Major depression, recurrent 296.30 ; Anxiety, generalized 300.02 and No condition on [place] II V71.[address] [address] Dec, Depression, major, recurrent , moderate 296.[address] [address] Dec, Major depressive disorder, r ecurrent episode, moderate 296.[address] [address] Dec, Depression, major, recurrent , moderate 296.[address] [address] Dec, Depression, major, recurrent , moderate 296.[address] [address] Dec, Depression, major, recurrent , moderate 296.32 [facility] [address] [place] [id number] [address] [place] [address] Dec, Depression, major, recurrent , moderate 296.32 [facility] [address] [place] [id number] [address] [place] [address] Nov, Depression, major, recurrent , moderate 296.32 [facility] [address] [address] Nov, Major depression 296.20 ; So cial phobia 300.23 and No condition on [place] II V71.09 [facility] [address] [address] Nov, Depression, major, recurrent , moderate 296.32 [place] [address] [address] Nov, Major depressive disorder, r ecurrent episode, moderate 296.32 and Generalized anxiety disorder 300.02 [facility] [address] [address] Nov, Depression, major, recurrent , moderate 296.32 [facility] [address] [address] Nov, Depression, major, recurrent , moderate 296.32 [facility] [address] [address] October, Generalized anxiety disorder 300.02 ; No condition on [place] II V71.09 and Major depressive disorder, recurrent 296.30 [facility] [address] [address] Sep, [facility] [address] [address] Sep, [facility] [address] [place] [id number] [address] [place] [address] Aug, [facility] [address] [address] Aug, 2014 [facility] [address] [id number] [facility] [address] 23 Aug, 2014 [facility] [facility] [address] [id number] [facility] [address] 23 Aug, 2014 [facility] [place] [facility] [address] [id number] [facility] [address] 20 Aug, 2014 [facility] [place] [facility] [address] [id number] [address] [place] [address], [place] [address] 20 Aug, 2014 [facility] [place] [facility] [address] [id number] [address] [place] [address], [place] [address] 20 Aug, 2014 [facility] [place] [address] [id number] [address] [place] [address], [place] [address] 20 Aug, 2014 [facility] [place] [facility] [address] [id number] [address] [place] [address], [place] [address] 13 Aug, 2014 [facility] [place] [facility] [address] [id number] [address] [place] [address], [place] [address] 13 Aug, 2014 [facility] [place] [facility] [address] [id number] [address] [place] [address], [place] [address] 13 Aug, 2014 [facility] [place] [facility] [address] [id number] [address] [place] [address], [place] [address] 13 Aug, 2014 [facility] [place] [facility] [address] [id number] [address] [place] [address], [place] [address] 12 Aug, 2014 [facility] [place] [facility] [address] [id number] [address] [place] [address], [place] [address] 12 Aug, 2014 [facility] [place] [facility] [address] [id number] [address] [place] [address], [place] [address] 10 Aug, 2014 [facility] [place] [facility] [address] [id number] [address] [place] [address], [place] [address] 10 Aug, 2014 [facility] [place] [facility] [address] [id number] [address] [place] [address], [place] [address] 09 Aug, 2014 [facility] [place] [facility] [address] [id number] [address] [address] Aug, [facility] [address] [id number] [address] [place] [address], [place] [address] Jul, [facility] [place] [facility] [address] [id number] [address] [place] [address], [place] [address] Jul, [facility] [address] [id number] [address] [place] [address], [place] [address] Jul, 2014 [facility] [place] [facility] [address] [id number] [address] [place] [address], [place] [address] Jul, [facility] [address] [id number] [address] [place] [address], [place] [address] Jul, [facility] [address] [id number] [address] [place] [address], [place] [address] Jul, [facility] [address] [id number] [address] [place] [address], [place] [address] Jun, [facility] [address] [id number] [address] [place] [address], [place] [address] Jun, [facility] [address] [id number] [address] [place] [address], [place] [address] Jun, [facility] [address] [id number] [address] [place] [address], [place] [address] Jun, [facility] [place] [facility] [address] [id number] [address] [place] [address], [place] [address] Jun, [facility] [address] [id number] [address] [place] [address], [place] [address] Jun, [facility] [place] [facility] [address] [id number] [address] [place] [address], [place] [address] Jun, [facility] [place] [facility] [address] [id number] [address] [place] [address], [place] [address] Jun, [facility] [place] [facility] [address] [id number] [address] [place] [address], [place] [address] Jun, [facility] [address] [id number] [address] [place] [address], [place] [address] Jun, [facility] [address] [id number] [address] [place] [address], [place] [address] Jun, [facility] [address] [id number] [address] [place] [address], [place] [address] Jun, [facility] [address] [id number] [place] [id number] Jun, [facility] [address] [id number] [address] [place] [address], [place] [address] Jun, [facility] [address] [id number] [address] [place] [address], [place] [address] Jun, [facility] [address] [id number] [address] [place] [address], [place] [address] Jun, [facility] [address] [id number] [address] [place] [address], [place] [address] May, [facility] [address] [id number] [address] [place] [address], [place] [address] May, [facility] [address] [id number] [address] [place] [address], [place] [address] May, [facility] [address] [id number] [address] [place] [address], [place] [address] May, [facility] [place] [facility] [address] [id number] [address] [place] [address] Apr, [facility] [place] [facility] [address] [id number] [address] [place] [address], [place] [address] Apr, [facility] [place] [facility] [address] [id number] [address] [place] [address], [place] [address] Apr, [facility] [place] [facility] [address] [id number] [address] [place] [address] Apr, [facility] [place] [facility] [address] [id number] [address] [place] [address] Apr, [facility] [place] [facility] [address] [id number] [address] [place] [address], [place] [address] Apr, [facility] [place] [facility] [address] [id number] [address] [place] [address], [place] [address] Apr, [facility] [place] [facility] [address] [id number] [address] [place] [address], [place] [address] Apr, [facility] [place] [facility] [address] [id number] [address] [place] [address], [place] [address] Apr, [facility] [place] [facility] [address] [id number] [address] [place] [address], [place] [address] Apr, [facility] [place] [facility] [address] [id number] [address] [place] [address], [place] [address] Apr, [facility] [place] [facility] [address] [id number] [address] [place] [address], [place] [address] Apr, [facility] [place] [facility] [address] [id number] [address] [place] [address], [place] [address] Apr, [facility] [place] [facility] [address] [id number] [address] [place] [address], [place] [address] Apr, [facility] [place] [facility] [address] [id number] [address] [place] [address], [place] [address] Apr, [facility] [place] [facility] [address] [id number] [address] [place] [address], [place] [address] Apr, [facility] [place] [facility] [address] [id number] [address] [place] [address], [place] [address] Apr, [facility] [place] [facility] [address] [id number] [address] [place] [address], [place] [address] Apr, [facility] [place] [facility] [address] [id number] [address] [place] [address], [place] [address] Apr, [facility] [place] [facility] [address] [id number] [address] [place] [address], [place] [address] Apr, [facility] [place] [facility] [address] [id number] [address] [place] [address], [place] [address] Mar, [facility] [place] [facility] [address] [id number] [address] [place] [address], [place] [address] Mar, [facility] [place] [facility] [address] [id number] [address] [place] [address], [place] [address] Mar, [facility] [place] [facility] [address] [id number] [address] [place] [address], [place] [address] Mar, [facility] [place] [facility] [address] [id number] [address] [place] [address], [place] [address] Mar, [facility] [place] [facility] [address] [id number] [address] [place] [address], [place] [address] Mar, [facility] [place] [facility] [address] [id number] [address] [place] [address], [place] [address] Mar, [facility] [place] [facility] [address] [id number] [address] [place] [address], [place] [address] Mar, [facility] [place] [facility] [address] [id number] [address] [place] [address], [place] [address] Mar, [facility] [place] [facility] [address] [id number] [address] [place] [address], [place] [address] Mar, [facility] [place] [facility] [address] [id number] [address] [place] [address], [place] [address] Feb, [facility] [place] [facility] [address] [id number] [address] [place] [address], [place] [address] Feb, [facility] [place] [facility] [address] [id number] [address] [place] [address], [place] [address] Feb, [facility] [place] [facility] [address] [id number] [address] [place] [address], [place] [address] Feb, [facility] [place] [facility] [address] [id number] [address] [place] [address], [place] [address] Jan, [facility] [place] [facility] [address] [id number] [address] [place] [address], [place] [address] Jan, [facility] [place] [facility] [address] [id number] [facility] [address] Jan, [facility] [place] [facility] [address] [id number] [facility] [address] Jan, [facility] [place] [facility] [address] [id number] [facility] [address] Jan, [facility] [place] [facility] [address] [id number] [address] [place] [address], [place] [address] Jan, [facility] [place] [facility] [address] [id number] [facility] [address] Dec, [facility] [place] [facility] [address] [id number] [address] [place] [address], [place] [address] Dec, [facility] [place] [facility] [address] [id number] [address] [place] [address], [place] [address] Nov, [facility] [place] [facility] [address] [id number] [address] [place] [address], [place] [address] Nov, [facility] [place] [facility] [address] [id number] [address] [place] [address], [place] [address] Nov, [facility] [place] [facility] [address] [id number] [address] [place] [address], [place] [address] Nov, [facility] [place] [facility] [address] [id number] [address] [place] [address], [place] [address] Nov, [facility] [place] [facility] [address] [id number] [address] [place] [address], [place] [address] Nov, [facility] [place] [facility] [address] [id number] [address] [place] [address], [place] [address] Sep, [facility] [place] [facility] [address] [id number] [address] [place] [address], [place] [address] Sep, [facility] [place] [facility] [address] [id number] [address] [place] [address], [place] [address] Sep, [facility] [place] [facility] [address] [id number] [address] [place] [address], [place] [address] Sep, [facility] [address] [id number] [address] [place] [address], [place] [address] Aug, [facility] [address] [id number] [address] [place] [address], [place] [address] Aug, [facility] [address] [id number] [address] [place] [address], [place] [address] Jul, [facility] [address] [id number] [address] [place] [address], [place] [address] Jul, [facility] [address] [id number] [address] [place] [address], [place] [address] Jun, [facility] [address] [id number] [address] [place] [address], [place] [address] Jun, [facility] [address] [id number] [address] [place] [address], [place] [address] Jun, [facility] [address] [id number] [address] [place] [address], [place] [address] Jun, [facility] [address] [id number] [address] [place] [address], [place] [address] May, [facility] [address] [id number] [address] [place] [address], [place] [address] 24 May, 2013 [facility] [address] [id number] [address] [place] [address], [place] [address] May, [facility] [address] [id number] [address] [place] [address], [place] [address] May, [facility] [address] [id number] [address] [place] [address], [place] [address] May, [facility] [address] [id number] [address] [place] [address], [place] [address] May, [facility] [address] [id number] [address] [place] [address], [place] [address] Apr, [facility] [place] [facility] [address] [id number] [address] [place] [address], [place] [address] Apr, [facility] [address] [id number] [address] [place] [address], [place] [address] Apr, [facility] [address] [id number] [address] [place] [address], [place] [address] Apr, [facility] [address] [id number] [address] [place] [address], [place] [address] Mar, [facility] [address] [id number] [address] [place] [address], [place] [address] Mar, [facility] [address] [id number] [address] [place] [address], [place] [address] Mar, [facility] [address] [id number] [address] [place] [address], [place] [address] Mar, [facility] [address] [id number] [address] [place] [address], [place] [address] Feb, [facility] [address] [id number] [place] [id number] Jan, [facility] [address] [id number] [address] [place] [address], [place] [id number] Jan, [facility] [address] [id number] [address] [place] [address], [place] [address] Dec, [facility] [address] [id number] [address] [place] [address], [place] [address] Dec, [facility] [address] [id number] [address] [place] [address], [place] [id number] Dec, [facility] [address] [id number] [place] [id number] Dec, [facility] [address] [id number] [address] [place] [address], [place] [address] Nov, [facility] [address] [id number] [address] [place] [address], [place] [id number] Nov, [facility] [address] [id number] [address] [place] [id number] Nov, [facility] [address] [id number] [address] [place] [id number] Nov, [facility] [address] [id number] [address] [place] [id number] Nov, [facility] [address] [facility] [id number] [address] [place] [id number] October, [facility] [address] [facility] [id number] [address] [place] [id number] October, [facility] [address] [facility] [id number] [address] [place] [id number] Aug, [facility] [address] [facility] [id number] [address] [place] [phone] Nov, IMMUNIZATIONS No Known Immunizations SOCIAL HISTORY [...] 03/2016 Hospitalization History gastric sleeve [facility] 08/2017
--- OUTSIDE RECORDS SUMMARY | 2019-11-29 09:27 | XMS REPORT ---
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 9 Active 07761505 Problem Sciatica, right side M54.31 Active [id number] Problem Mixed obsessional thoughts and acts F42.2 Active 40693839 Problem Vitamin D deficiency E55.9 Active 88723997 Problem DANIELA (generalized anxiety disorder) F41.1 Active 86420839 Problem BMI 45.0-49.9, adult Z68.42 Active 197228904 Problem Hyperlipemia E78.5 Active 6302719 4 Problem Major depression F32.9 Active 370 217072 Problem Insomnia G47.00 Active 547632964 Problem Renal insufficiency N28.9 Active 967944601 Problem Edema R60.9 Active 084719514 Problem Morbid obesity E66.01 Active 83105 6002 Problem Callus of foot L84 Active 27903 1005 Problem Benign essential hypertension I10 Active 3392173 Problem Recurrent major depressive disorder, in partial remission F33.41 Active 45511634 ALLERGIES No Information ENCOUNTERS Encounter Location Date Diagnosis [facility] [address] [facility] [id number] [address] [place] [phone] Mar, [facility] [address] [facility] [id number] [address] [place] [phone] 28 Jan, 2018 Recurrent major depressive d isorder, in partial remission F33.41 ; Mixed obsessional thoughts and acts F42.2 and BMI 45.0-49.9, adult Z68.42 [facility] [address] [place] [address] [id number], [place] [id number] Jan, [facility] [address] [id number], [place] [id number] Jan, Benign essential hypertension I10 ; BMI 45.0-49.9, adult Z68.42 ; Metabolic syndrome E88.81 and Allergic rhinitis, unspecified seasonality, unspecified trigger J30.9 [facility] [address] [facility] [id number] [address] [place] [phone] Dec, DANIELA (generalized anxiety dis order) F41.1 and Depressive disorder, not elsewhere classified F32.9 [facility] [address] [id number], [place] [id number] Dec, Recurrent major depressive disorder, in partial remission F33.41 [facility] [address] [id number], [place] [id number] Dec, [facility] [address] [id number], [place] [id number] Nov, [facility] [id number] [place] [address] [id number] Nov, Recurrent major depressive disorder, in partial remission F33.41 [facility] [address] [facility] [id number] [address] [place] [phone] Nov, Recurrent major depressive d isorder, in partial remission F33.41 ; Mixed obsessional thoughts and acts F42.2 ; DANIELA (generalized anxiety disorder) F41.1 and BMI 45.0-49.9, adult Z68.42 [facility] [address] [id number], [place] [id number] Nov, [facility] [address] [id number], [place] [id number] Nov, Other conjunctivitis of both eyes H10.89 and Sciatica, right side M54.31 [facility] [address] [id number], [place] [id number] Nov, [facility] [address] [id number], [place] [id number] Nov, [facility] [address] [id number], [place] [id number] October, [facility] [address] [id number], [place] [id number] October, [facility] [address] [facility] [id number] [address] [place] [phone] October, BMI 45.0-49.9, adult Z68.42 ; Mixed obsessional thoughts and acts F42.2 ; Recurrent major depressive disorder, in partial remission F33.41 and DANIELA (generalized anxiety disorder) F41.1 [facility] [address] [id number], [place] [id number] October, Benign essential hypertension I10 ; Morb id obesity E66.01 and BMI 45.0-49.9, adult Z68.42 [facility] [address] [id number], [place] [id number] Sep, [facility] [address] [id number], [place] [id number] Sep, [facility] [address] [id number], [place] [id number] Sep, [facility] [address] [id number], [place] [id number] Sep, Hospital discharge follow-up Z09 ; Aller gic rhinitis, unspecified seasonality, unspecified trigger J30.9 and Shortness of breath R06.02 [facility] [address] [id number], [place] [id number] Sep, Recurrent major depressive disorder, in partial remission F33.41 [facility] [address] [id number], [place] [id number] Aug, Irritable mood R45.4 [facility] [address] [facility] [id number] [address] [place] [phone] Aug, [facility] [address] [id number], [place] [id number] Jul, Benign essential hypertension I10 ; Robert a R60.9 and Impacted cerumen of left ear H61.22 [facility] [address] [facility] [id number] [address] [place] [phone] 14 Jul, 2017 Major depression F32.9 ; Rec urrent major depressive disorder, in partial remission F33.41 and Anxiety F41.9 [place] [address] [facility] [id number] [address] [place] [phone] Jun, Major depression F32.9 ; Rec urrent major depressive disorder, in partial remission F33.41 and Anxiety F41.[address] [place] [address] [id number], [place] [id number] Jun, Major depression F32.9 ; Morbid obesity E66.01 ; Irritable mood R45.4 ; Hand weakness R29.898 and Vitamin D deficiency E55.[address] [place] [address] [id number], [place] [id number] Jun, [place] [id number] [place] [address] [id number] May, Major depression F32.9 [place] [address] [facility] [id number] [address] [place] [phone] May, Major depression F32.[address] [place] [id number] [place] [address] [id number] May, BMI 50.0-59.9, adult Z68.43 ; Major depr ession F32.9 ; Anxiety F41.9 ; Hypertrophic toenail L60.2 and Pain of left great toe M79.[address] [address] [id number], [place] [id number] May, Recurrent major depressive disorder, in partial remission F33.41 [place] [address] [facility] [id number] [address] [place] [phone] Apr, [facility] [address] [id number], [place] [id number] Apr, [facility] [address] [facility] [id number] [address] [place] [phone] Apr, Major depression F32.9 [facility] [address] [id number], [place] [id number] Apr, Severe episode of recurrent major depres sive disorder, without psychotic features F33.2 ; Anxiety F41.9 and Insomnia G47.00 [facility] [address] [id number], [place] [id number] Apr, [facility] [address] [facility] [id number] [address] [place] [phone] Apr, [facility] [address] [id number], [place] [id number] Apr, [facility] [address] [id number], [place] [id number] Mar, [facility] [address] [id number], [place] [id number] Mar, Allergic conjunctivitis of both eyes H10 .13 [facility] [address] [facility] [id number] [address] [place] [phone] Mar, Major depression F32.9 [facility] [address] [id number], [place] [id number] Mar, Metabolic syndrome E88.81 ; History of g astric bypass Z98.890 ; Benign essential hypertension I10 and Allergic conjunctivitis of both eyes H10.13 [facility] [address] [facility] [id number] [address] [place] [phone] Mar, Major depression F32.9 [facility] [address] [id number], [place] [id number] Feb, [facility] [address] [facility] [id number] [address] [place] [phone] Feb, Major depression F32.9 [facility] [address] [facility] [address] [id number], [place] [id number] Feb, Subacute maxillary sinusitis J01.00 and Bronchitis J40 [facility] [address] [facility] [id number] [address] [place] [phone] Feb, Major depressive disorder, r ecurrent, moderate F33.1 [facility] [address] [id number], [place] [id number] Jan, [facility] [id number] [place] [address] [id number] Jan, Acute non-recurrent maxillary sinusitis J01.00 and Skin tag L91.8 [place] [address] [facility] [address] [id number] [place] [address] [id number] Jan, Cough R05 and Sinus congestion R09.81 [facility] [address] [place] [address] [id number] [place] [address] [id number] Jan, [id number] [place] [address] [id number] Jan, Benign essential hypertension I10 ; Hist ory of gastric bypass Z98.890 and Nausea and vomiting in adult R11.2 [place] [address] [place] [id number] [address] [place] [phone] Jan, Major depressive disorder, r ecurrent, moderate F33.1 [facility] [address] [place] [id number] [address] [place] [phone] Dec, Insomnia G47.00 ; Recurrent major depressive disorder, in partial remission F33.41 and Morbid obesity E66.01 [facility] [address] [facility] [id number] [place] [address] [id number] Dec, [facility] [address] [id number], [place] [id number] Dec, Chronic bacterial conjunctivitis of left eye H10.402 [facility] [id number] [place] [address] [id number] Nov, [address] [id number], [place] [id number] Nov, Dental examination Z01.[id number] [place] [address] [id number] 23 Nov, 2016 Benign essential hypertension I10 ; Hist ory of gastric bypass Z98.890 and Nausea and vomiting in adult R11.2 [place] [address] [place] [id number] [address] [place] [phone] 13 Nov, 2016 Major depressive disorder, r ecurrent, moderate F33.1 ; Generalized anxiety disorder F41.1 and Insomnia due to other mental disorder F51.05 [place] [id number] [address] [place] [phone] 12 Nov, 2016 Recurrent major depressive d isorder, in partial remission F33.41 ; Insomnia G47.00 and Morbid obesity E66.01 [facility] [address] [place] [id number] [place] [address] [id number] October, Abscess of left arm L02.[id number] [place] [address] October, Morbid obesity E66.01 ; Lida r depression F32.9 and Recurrent major depressive disorder, in partial remission F33.[address] [id number], [place] [id number] Sep, Benign essential hypertension I10 ; Morb id obesity E66.01 ; S/P gastric bypass Z98.84 ; Abscess L02.91 and Chronic bacterial conjunctivitis of left eye H10.[id number] [place] [address] [id number] Sep, Dental examination Z01.20 [place] [address] [place] [id number] [address] [place] [phone] Sep, Morbid obesity E66.01 ; Lida r depression F32.9 and Recurrent major depressive disorder, in partial remission F33.41 [place] [address] [facility] [id number] [address] [place] [phone] Jul, [facility] [address] [facility] [id number] [address] [place] [phone] Jul, Major depressive disorder, r ecurrent, moderate F33.1 [facility] [address] [facility] [id number] [address] [place] [phone] Jul, Major depressive disorder, r ecurrent, moderate F33.1 and Generalized anxiety disorder F41.1 [facility] [id number] [place] [address] [id number] Jul, Cough R05 [place] [address] [facility] [id number] [address] [place] [phone] Jul, Morbid obesity E66.01 ; Lida r depression F32.9 and Recurrent major depressive disorder, in partial remission F33.41 [facility] [id number] [place] [address] [id number] Jul, [facility] [id number] [place] [address] [id number] Jul, [place] [id number] [place] [address] [id number] Jul, Gastroenteritis K52.9 and Cough R05 [facility] [id number] [place] [address] [id number] Jun, Acute bacterial conjunctivitis of left e ye H10.32 [facility] [address] [facility] [id number] [address] [place] [phone] Jun, [facility] [address] [facility] [id number] [address] [place] [phone] Jun, Recurrent major depressive d isorder, in partial remission F33.41 [facility] [address] [facility] [id number] [address] [place] [phone] May, Major depression F32.9 and M orbid obesity E66.01 [facility] [address] [facility] [id number] [address] [place] [phone] May, [place] [address] [facility] [id number] [place] [address] [id number] May, Thrush B37.0 [facility] [address] [facility] [id number] [address] [place] [phone] Apr, Major depressive disorder, r ecurrent, moderate F33.1 [facility] [address] [facility] [id number] [address] [place] [phone] Apr, Insomnia G47.00 ; Major depr ession F32.9 and Recurrent major depressive disorder, in partial remission F33.41 [place] [address] [facility] [id number] [address] [place] [phone] Apr, [place] [address] [facility] [id number] [address] [place] [phone] 02 Apr, 2016 Major depression F32.9 and R ecurrent major depressive disorder, in partial remission F33.[address] [id number], [place] [id number] Mar, Benign essential hypertension I10 ; Morb id obesity E66.01 ; Impacted cerumen of both ears H61.23 ; Laceration of finger of right hand, initial encounter S61.219A and Encounter for immunization Z23 [facility] [address] [facility] [id number] [address] [place] [phone] 17 Mar, 2016 [facility] [address] [facility] [id number] [address] [place] [phone] Mar, [place] [address] [facility] [id number] [address] [place] [phone] Mar, [address] [id number], [place] [id number] 29 Feb, 2016 Nausea R11.0 ; Blood in the stool K92.1 and Benign essential hypertension I10 [place] [address] [facility] [id number] [address] [place] [phone] Feb, Major depression F32.9 and R ecurrent major depressive disorder, in partial remission F33.[address] [facility] [address] [id number], [place] [id number] Feb, [facility] [address] [address] [id number], [place] [id number] Feb, Recurrent major depressive disorder, in partial remission F33.[address] [facility] [address] [id number], [place] [id number] Jan, [facility] [address] [id number], [place] [id number] Jan, Benign essential hypertension I10 ; Robert a R60.9 and Hyperlipidemia, unspecified hyperlipidemia type E78.5 [facility] [address] [id number], [place] [id number] Jan, Recurrent major depressive disorder, in partial remission F33.41 [facility] [address] [id number] [place] [id number] Jan, [facility] [address] [id number], [place] [id number] Jan, [facility] [address] [id number], [place] [id number] Jan, [facility] [address] [facility] [id number] [address] [place] [phone] Jan, [facility] [address] [facility] [id number] [address] [place] [phone] Dec, [facility] [address] [facility] [id number] [address] [place] [phone] Nov, [facility] [address] [facility] [id number] [address] [place] [phone] Nov, Major depression F32.9 [facility] [address] [facility] [id number] [address] [place] [phone] Nov, [facility] [address] [facility] [id number] [address] [place] [phone] Nov, [place] [address] [facility] [id number] [address] [place] [phone] Nov, Major depressive disorder, r ecurrent episode, mild F33.0 and Anxiety F41.9 [facility] [address] [id number], [place] [id number] Nov, [facility] [id number] [place] [address] [id number] October, Left elbow pain M25.522 and Other season al allergic rhinitis J30.2 [facility] [address] [facility] [address] [id number] [place] [address] [id number] October, [place] [address] [facility] [id number] [address] [place] [phone] October, Major depressive disorder, r ecurrent, moderate F33.1 [place] [address] [facility] [id number] [address] [place] [phone] October, Major depression F32.9 [place] [address] [facility] [id number] [address] [place] [phone] Sep, Upham or callus L84 and Onych omycosis B35.1 [place] [address] [place] [id number] [address] [place] [phone] Sep, Major depressive disorder, r ecurrent, moderate F33.1 [place] [address] [facility] [id number] [address] [place] [phone] Sep, Major depression F32.9 [place] [address] [facility] [id number] [address] [place] [phone] Sep, Moderate episode of recurren t major depressive disorder F33.1 [facility] [address] [id number], [place] [id number] Sep, Muscle strain T14.8 [place] [address] [facility] [id number] [address] [place] [phone] Aug, Major depression F32.9 [facility] [address] [facility] [id number] [address] [place] [phone] Aug, Major depression F32.9 [facility] [address] [facility] [id number] [address] [place] [phone] Jul, Morbid obesity E66.01 and Ma cora depression F32.9 [facility] [address] [facility] [id number] [address] [place] [phone] Jul, Depression, major, recurrent , moderate F33.[id number] [place] [id number] Jul, [facility] [address] [facility] [id number] [address] [place] [phone] Jul, [facility] [address] [place] [id number] [address] [place] [phone] Jul, Major depression F32.9 and M orbid obesity E66.[address] [id number] [place] [id number] Jul, Type II diabetes mellitus E11.9 ; Callus of foot L84 ; Benign essential hypertension I10 and Renal insufficiency N28.9 [facility] [address] [facility] [id number] [address] [place] [phone] 09 Jul, 2015 Depression, major, recurrent , moderate F33.1 [facility] [address] [facility] [id number] [address] [place] [phone] 05 Jul, 2015 Major depression F32.9 [facility] [address] [place] [id number] [address] [place] [phone] Jul, [facility] [address] [facility] [id number] [address] [place] [phone] Jun, Major depression F32.9 [facility] [address] [place] [id number] [address] [place] [phone] Jun, Major depressive disorder, r ecurrent, moderate F33.1 [facility] [facility] [address] [facility] [id number] [address] [place] [id number] Jun, [facility] [address] [facility] [id number] [address] [place], [place] [id number] Jun, Major depressive disorder, r ecurrent, moderate F33.1 and Major depression F32.[address] [place] [id number] [place] [address] [id number] Jun, Type II diabetes mellitus E11.9 [place] [address] [facility] [id number] [address] [place], [place] [id number] Jun, Depression, major, recurrent , moderate F33.1 [place] [address] [facility] [id number] [address] [place] [address] May, Major depressive disorder, r ecurrent, moderate F33.1 [place] [address] [address] [place] [id number] [address] [place] [address] May, [id number] [place] [address] [id number] May, Edema R60.9 [place] [address] [place] [id number] [address] [place] [address] 17 May, 2015 Insomnia G47.00 and Major de pression F32.[address] [place] [id number] [place] [address] [id number] 15 May, 2015 Morbid obesity E66.01 ; Edema R60.9 ; Sh ortness of breath R06.02 ; Benign essential hypertension I10 and Renal insufficiency N28.[address] [place] [id number] [place] [address] [id number] 14 May, 2015 Hyperlipemia 272.4 and Renal insufficien cy N28.9 [place] [address] [facility] [id number] [address] [place] [address] Apr, Major depression F32.9 [place] [address] [facility] [id number] [address] [place] [address] Apr, [place] [address] [facility] [id number] [address] [place] [address] Apr, Major depressive disorder, r ecurrent, moderate F33.1 [facility] [address] [id number] [id number] Apr, Type II diabetes mellitus E11.9 ; Benign essential hypertension I10 ; Edema R60.9 and Renal insufficiency N28.9 [place] [address] [facility] [id number] [address] [place] [address] Mar, Major depressive disorder, r ecurrent, moderate F33.1 [place] [address] [facility] [id number] [address] [place] [address] Mar, [place] [address] [facility] [id number] [address] [place] [address] Mar, Major depression F32.9 [facility] [address] [id number][place] [id number] Mar, Morbid obesity E66.01 ; Benign essential hypertension I10 and Type II diabetes mellitus E11.9 [place] [address] [facility] [id number] [address] [place] [address] Feb, Major depressive disorder, r ecurrent, moderate F33.1 [place] [address] [facility] [id number] [address] [place] [address] Feb, Major depressive disorder, r ecurrent episode, in partial or unspecified remission 296.35 ; Anxiety state, unspecified 300.00 and Morbid obesity 278.01 [place] [address] [facility] [id number] [address] [place] [address] Feb, [facility] [address] [id number][place] [id number] Feb, Vomiting 787.03 and Viral syndrome 079.9 9 [place] [address] [facility] [id number] [address] [place] [address] Feb, Major depression, recurrent 296.30 ; Generalized anxiety disorder 300.02 and No condition on Beattie II V71.09 [facility] [address] [place] [address] AVE [id number][place] [id number] Feb, Skin tag 701.9 [facility] [address] [facility] [id number] [address] [place] [address] Feb, [facility] [address] [place] [id number] [address] [place] [address] Jan, Depression, major, recurrent , moderate 296.[address] [id number] [place] [address] [id number] Jan, Nausea and vomiting 787.01 ; Rib pain on right side 786.50 and Fall on or from sidewalk curb E880.1 [facility] [address] [place] [id number] [address] [place] [address] Jan, [facility] [address] [place] [id number] [address] [place] [address] Jan, Major depressive disorder, r ecurrent episode, in partial or unspecified remission 296.35 and Anxiety state, unspecified 300.00 [facility] [address] [place] [address] [id number][place] [id number] Jan, [facility] [address] [facility] [id number] [address] [place] [address] Jan, Depression, major, recurrent , moderate 296.32 [facility] [address] [facility] [id number] [address] [place] [address] Jan, Major depression, recurrent 296.30 ; No condition on Beattie II V71.09 and No condition on axis III V71.09 [facility] [address] [place], [place] [address] [id number][place] [id number] Jan, Drug-induced nausea and vomiting 787.01 [facility] [address] [place] [id number] [address] [place] [address] Jan, Depression, major, recurrent , moderate 296.32 [facility] [address] [facility] [id number] [address] [place] [address] Dec, Depression, major, recurrent , moderate 296.32 [facility] [address] [id number][place] [id number] Dec, Morbid obesity 278.01 ; Metabolic syndro me 277.7 ; Hyperlipemia 272.4 ; Benign essential hypertension 401.1 ; Dietary counseling V65.3 ; Exercise counseling V65.41 and Inflamed skin tag 701.9 [place] [address] [place] [id number] [address] [place] [address] Dec, Depression, major, recurrent , moderate 296.32 [place] [address] [address] Dec, [place] [address] [address] Dec, Major depression, recurrent 296.30 ; Anxiety, generalized 300.02 and No condition on Beattie II V71.09 [place] [address] [address] Dec, Depression, major, recurrent , moderate 296.32 [place] [address] [place] [id number] [address] [place] [address] Dec, Major depressive disorder, r ecurrent episode, moderate 296.32 [place] [id number] [place] [address] Dec, Depression, major, recurrent , moderate 296.32 [place] [address] [place] [id number] [address] [place] [address] Dec, Depression, major, recurrent , moderate 296.32 [place] [address] [place] [id number] [address] [place] [address] Dec, Depression, major, recurrent , moderate 296.32 [place] [address] [place] [id number] [address] [place] [address] Dec, Depression, major, recurrent , moderate 296.32 [facility] [address] [address] Nov, Depression, major, recurrent , moderate 296.32 [facility] [address] [address] Nov, Major depression 296.20 ; So cial phobia 300.23 and No condition on Beattie II V71.09 [facility] [address] [address] Nov, Depression, major, recurrent , moderate 296.32 [place] [address] [address] Nov, Major depressive disorder, r ecurrent episode, moderate 296.32 and Generalized anxiety disorder 300.02 [place] [address] [address] Nov, Depression, major, recurrent , moderate 296.32 [facility] [address] [address] Nov, Depression, major, recurrent , moderate 296.32 [facility] [address] [address] October, Generalized anxiety disorder 300.02 ; No condition on Beattie II V71.09 and Major depressive disorder, recurrent 296.30 [facility] [address] [address] Sep, [facility] [address] [address] Sep, [place] [address] [address] Aug, [facility] [address] [address] Aug, [facility] [address] [place] [address] 23 Aug, 2014 [facility] [address] [id number] [address] [place] [address], [place] [address] 23 Aug, 2014 [facility] [address] [id number] [address] [place] [address], [place] [address] 20 Aug, 2014 [facility] [address] [id number] [address] [place] [address], [place] [address] 20 Aug, 2014 [facility] [address] [id number] [address] [place] [address], [place] [address] 20 Aug, 2014 [facility] [address] [id number] [address] [place] [address], [place] [address] 20 Aug, 2014 [facility] [address] [id number] [address] [place] [address], [place] [address] 13 Aug, 2014 [facility] [address] [id number] [address] [place] [address], [place] [address] 13 Aug, 2014 [facility] [address] [id number] [address] [place] [address], [place] [address] 13 Aug, 2014 [facility] [address] [id number] [address] [place] [address], [place] [address] 13 Aug, 2014 [facility] [address] [id number] [address] [place] [address], [place] [address] 12 Aug, 2014 [facility] [address] [id number] [address] [place] [address], [place] [address] 12 Aug, 2014 [facility] [address] [id number] [address] [place] [address], [place] [address] 10 Aug, 2014 [facility] [address] [id number] [address] [place] [address], [place] [address] 10 Aug, 2014 [facility] [address] [id number] [address] [place] [address], [place] [address] 09 Aug, 2014 [facility] [address] [id number] [address] [place] [address], [place] [address] 09 Aug, 2014 [facility] [address] [id number] [address] [place] [address], [place] [address] Jul, [facility] [address] [id number] [address] [place] [address], [place] [address] Jul, [facility] [address] [id number] [address] [place] [address], [place] [address] Jul, [facility] [address] [id number] [address] [place] [address], [place] [address] Jul, [facility] [address] [id number] [address] [place] [address], [place] [address] Jul, [facility] [address] [id number] [address] [place] [address], [place] [address] Jul, [facility] [address] [id number] [address] [place] [address], [place] [address] Jun, [facility] [address] [id number] [address] [place] [address], [place] [address] Jun, [facility] [address] [id number] [address] [place] [address], [place] [address] Jun, [facility] [address] [id number] [address] [place] [address], [place] [address] Jun, [facility] [address] [id number] [address] [place] [address], [place] [address] Jun, [facility] [address] [id number] [address] [place] [address], [place] [address] Jun, [facility] [address] [id number] [address] [place] [address], [place] [address] Jun, [facility] [address] [id number] [address] [place] [address], [place] [address] Jun, [facility] [address] [id number] [address] [place] [address], [place] [address] Jun, [facility] [address] [id number] [address] [place] [address] [place] [address] Jun, [facility] [address] [id number] [address] [place] [address], [place] [address] Jun, [facility] [address] [id number] [address] [place] [address], [place] [address] Jun, [facility] [address] [id number] [place] [id number] Jun, [facility] [address] [id number] [address] [place] [address], [place] [address] Jun, [facility] [address] [id number] [address] [place] [address], [place] [address] Jun, [facility] [address] [id number] [address] [place] [address], [place] [address] Jun, [facility] [address] [id number] [address] [place] [address], [place] [address] May, [facility] [address] [id number] [address] [place] [address], [place] [address] May, [facility] [address] [id number] [address] [place] [address], [place] [address] May, [facility] [address] [id number] [address] [place] [address], [place] [address] May, [facility] [address] [id number] [address] [place] [address], [place] [address] Apr, [facility] [address] [id number] [address] [place] [address], [place] [address] Apr, [facility] [address] [id number] [address] [place] [address], [place] [address] Apr, [facility] [address] [id number] [address] [place] [address], [place] [address] Apr, [facility] [address] [id number] [address] [place] [address], [place] [address] Apr, [facility] [address] [id number] [address] [place] [address], [place] [address] Apr, [facility] [address] [id number] [address] [place] [address], [place] [address] Apr, [facility] [address] [id number] [address] [place] [address], [place] [address] Apr, [facility] [address] [id number] [address] [place] [address], [place] [address] Apr, [facility] [address] [id number] [address] [place] [address], [place] [address] Apr, [facility] [address] [id number] [address] [place] [address], [place] [address] Apr, [facility] [address] [id number] [address] [place] [address], [place] [address] Apr, [facility] [address] [id number] [address] [place] [address], [place] [address] Apr, [facility] [address] [id number] [address] [place] [address], [place] [address] Apr, [facility] [address] [id number] [address] [place] [address], [place] [address] Apr, [facility] [address] [id number] [address] [place] [address], [place] [address] Apr, [facility] [address] [id number] [address] [place] [address], [place] [address] Apr, [facility] [address] [id number] [address] [place] [address], [place] [address] Apr, [facility] [address] [id number] [address] [place] [address], [place] [address] Apr, [facility] [address] [id number] [address] [place] [address], [place] [address] Apr, [facility] [address] [id number] [address] [place] [address], [place] [address] Mar, [facility] [address] [id number] [address] [place] [address], [place] [address] Mar, [facility] [address] [id number] [address] [place] [address], [place] [address] Mar, [facility] [address] [id number] [address] [place] [address], [place] [address] Mar, [facility] [address] [id number] [address] [place] [address], [place] [address] Mar, [facility] [address] [id number] [address] [place] [address], [place] [address] Mar, [facility] [address] [id number] [address] [place] [address], [place] [address] Mar, [facility] [address] [id number] [address] [place] [address], [place] [address] Mar, [facility] [address] [id number] [address] [place] [address], [place] [address] Mar, [facility] [address] [id number] [address] [place] [address], [place] [address] Mar, [facility] [address] [id number] [address] [place] [address], [place] [address] Feb, [facility] [address] [id number] [address] [place] [address], [place] [address] Feb, [facility] [address] [id number] [address] [place] [address], [place] [address] Feb, [facility] [address] [id number] [address] [place] [address], [place] [address] Feb, [facility] [address] [id number] [address] [place] [address], [place] [address] Jan, [facility] [address] [id number] [address] [place] [address], [place] [address] Jan, [facility] [address] [id number] [address] [place] [address] [place] [address] Jan, [facility] [address] [id number] [address] [place] [address], [place] [address] Jan, [facility] [address] [id number] [address] [place] [address], [place] [address] Jan, [facility] [address] [id number] [address] [place] [address], [place] [address] Jan, [facility] [address] [id number] [address] [place] [address], [place] [address] Dec, [facility] [address] [id number] [address] [place] [address], [place] [address] Dec, [facility] [address] [id number] [address] [place] [address], [place] [address] Nov, [facility] [address] [id number] [address] [place] [address], [place] [address] Nov, [facility] [address] [id number] [address] [place] [address], [place] [address] Nov, [facility] [address] [id number] [address] [place] [address], [place] [address] Nov, [facility] [address] [id number] [address] [place] [address], [place] [address] Nov, [facility] [address] [id number] [address] [place] [address], [place] [address] Nov, [facility] [address] [id number] [address] [place] [address], [place] [address] Sep, [facility] [address] [id number] [address] [place] [address], [place] [address] Sep, [facility] [address] [id number] [address] [place] [address], [place] [address] Sep, [facility] [address] [id number] [address] [place] [address], [place] [address] Sep, [facility] [address] [id number] [address] [place] [address], [place] [address] Aug, [facility] [address] [id number] [address] [place] [address], [place] [address] Aug, [facility] [address] [id number] [address] [place] [address], [place] [address] Jul, [facility] [address] [id number] [address] [place] [address], [place] [address] Jul, [facility] [address] [id number] [address] [place] [address], [place] [address] Jun, [facility] [address] [id number] [address] [place] [address], [place] [address] Jun, [facility] [address] [id number] [address] [place] [address], [place] [address] Jun, [facility] [address] [id number] [address] [place] [address], [place] [address] Jun, [facility] [address] [id number] [address] [place] [address], [place] [address] May, [facility] [address] [id number] [address] [place] [address], [place] [address] May, [facility] [address] [id number] [address] [place] [address], [place] [address] May, [facility] [address] [id number] [address] [place] [address], [place] [address] May, [facility] [address] [id number] [address] [place] [address], [place] [address] May, [facility] [address] [id number] [address] [place] [address], [place] [address] May, [facility] [address] [id number] [address] [place] [address], [place] [address] Apr, [facility] [address] [id number] [address] [address] Apr, [facility] [address] [id number] [address] [place] [address], [place] [address] Apr, [facility] [address] [id number] [address] [place] [address], [place] [address] Apr, [facility] [address] [id number] [address] [place] [address], [place] [address] Mar, [facility] [address] [id number] [address] [place] [id number] Mar, [facility] [address] [id number] [address] [place] [address], [place] [address] Mar, [facility] [address] [id number] [address] [place] [id number] Mar, [facility] [address] [id number] [address] [place] [address] Feb, [facility] [address] [id number] [place] [id number] Jan, [facility] [address] [id number] [address] [place] [phone] Jan, [facility] [address] [id number] [address] [place] [phone] Dec, [facility] [address] [id number] [address] [place] [id number] Dec, [facility] [address] [id number] [address] [place] [phone] Dec, [facility] [address] [id number] [place] [id number] Dec, [facility] [address] [id number] [address] [place] [phone] Nov, [facility] [address] [id number] [address] [place] [id number] 14 Nov, 2012 [facility] [address] [id number] [address] [place] [phone] 12 Nov, 2012 [facility] [address] [facility] [id number] [address] [place] [phone] Nov, [facility] [address] [facility] [id number] [address] [place] [phone] Nov, [facility] [address] [facility] [id number] [address] [place] [phone] October, [facility] [address] [facility] [id number] [address] [place] [phone] October, [facility] [address] [facility] [id number] [address] [place] [id number] Aug, [facility] [address] [facility] [facility] [id number] [address] [place] [phone] 13 Nov, 2011 IMMUNIZATIONS No Known Immunizations SOCIAL HISTORY Never Assessed REASON FOR VISIT FYI only PLAN OF CARE VITAL SIGNS MEDICATIONS Unknown [...]
--- OUTSIDE RECORDS SUMMARY | 2019-11-29 09:28 | XMS REPORT ---
Author Author Curt DIAZ [facility] Address [address] [place] [address] Care Team Providers Care Manhole Builder Name Role Phone CHRIS DIAZ Unavailable PROBLEMS Type Condition ICD9-CM Code [id number] Code Onset Dates Condition S tatus SNOMED Code Problem Metabolic syndrome E88.81 Active 2 14008052 Problem Severe episode of recurrent major depressive disorder, without psychotic features F33.2 Active 60696007 Problem Anxiety F41.9 Active 45646864 Problem Depressive disorder, not elsewhere classified F32. 9 Active 12861728 Problem Sciatica, right side M54.31 Active [id number] Problem Mixed obsessional thoughts and acts F42.2 Active 67925046 Problem Vitamin D deficiency E55.9 Active 13275435 Problem DANIELA (generalized anxiety disorder) F41.1 Active 58788192 Problem BMI 45.0-49.9, adult Z68.42 Active 692551755 Problem Hyperlipemia E78.5 Active 7936608 4 Problem Major depression F32.9 Active 370 746397 Problem Insomnia G47.00 Active 963343076 Problem Renal insufficiency N28.9 Active 760695728 Problem Edema R60.9 Active 105087631 Problem Morbid obesity E66.01 Active 27038 6002 Problem Callus of foot L84 Active 80347 1005 Problem Benign essential hypertension I10 Active 5628720 Problem Recurrent major depressive disorder, in partial remission F33.41 Active 18867833 ALLERGIES Substance Reaction Event Type Date Status [place] throat swells Drug Allergy Nov, Active [...] Nov, Active ENCOUNTERS Encounter Location Date Diagnosis [place] [address] [facility] [id number] [address] [place] [phone] Mar, [place] [address] [facility] [id number] [address] [place] [phone] Jan, Recurrent major depressive d isorder, in partial remission F33.41 ; Mixed obsessional thoughts and acts F42.2 and BMI 45.0-49.9, adult Z68.42 [facility] [address] [id number][place] [id number] Jan, [facility] [id number] [place] [address] [phone] Jan, Benign essential hypertension I10 ; BMI 45.0-49.9, adult Z68.42 ; Metabolic syndrome E88.81 and Allergic rhinitis, unspecified seasonality, unspecified trigger J30.9 [place] [address] [facility] [id number] [address] [place] [phone] Dec, DANIELA (generalized anxiety dis order) F41.1 and Depressive disorder, not elsewhere classified F32.9 [facility] [address] [id number][place] [id number] Dec, Recurrent major depressive disorder, in partial remission F33.41 [facility] [address] [id number], [place] [id number] Dec, [facility] [address] [id number], [place] [id number] Nov, [facility] [address] [id number], [place] [id number] Nov, Recurrent major depressive disorder, in partial remission F33.41 [place] [address] [facility] [id number] [address] [place] [address] Nov, Recurrent major depressive d isorder, in partial remission F33.41 ; Mixed obsessional thoughts and acts F42.2 ; DANIELA (generalized anxiety disorder) F41.1 and BMI 45.0-49.9, adult Z68.42 [facility] [address] [id number], [place] [id number] Nov, [facility] [address] [id number], [place] [id number] Nov, Other conjunctivitis of both eyes H10.89 and Sciatica, right side M54.31 [facility] [address] [id number], [place] [id number] Nov, [facility] [id number], [place] [id number] Nov, [facility] [address] [id number], [place] [id number] October, [facility] [address] [place] [address] AVE [id number], [place] [id number] October, [facility] [address] [facility] [id number] [address] [place] [phone] October, BMI 45.0-49.9, adult Z68.42 ; Mixed obsessional thoughts and acts F42.2 ; Recurrent major depressive disorder, in partial remission F33.41 and DANIELA (generalized anxiety disorder) F41.1 [facility] [id number], [place] [id number] October, Benign essential hypertension I10 ; Morb id obesity E66.01 and BMI 45.0-49.9, adult Z68.42 [facility] [address] [id number], [place] [id number] Sep, [facility] [address] [id number], [place] [id number] Sep, [facility] [address] [id number], [place] [id number] Sep, [facility] [address] [id number], [place] [id number] Sep, Hospital discharge follow-up Z09 ; Aller gic rhinitis, unspecified seasonality, unspecified trigger J30.9 and Shortness of breath R06.[address] [id number], [place] [id number] 10 Sep, 2017 Recurrent major depressive disorder, in partial remission F33.[address] [id number], [place] [id number] 15 Aug, 2017 Irritable mood R45.4 [place] [address] [facility] [id number] [address] [place] [phone] 09 Aug, [id number] [place] [address] [id number] 22 Jul, 2017 Benign essential hypertension I10 ; Robert a R60.9 and Impacted cerumen of left ear H61.22 [place] [address] [facility] [id number] [address] [place] [phone] 14 Jul, 2017 Major depression F32.9 ; Rec urrent major depressive disorder, in partial remission F33.41 and Anxiety F41.9 [place] [address] [facility] [id number] [address] [place] [phone] Jun, Major depression F32.9 ; Rec urrent major depressive disorder, in partial remission F33.41 and Anxiety F41.[address] [id number], [place] [id number] Jun, Major depression F32.9 ; Morbid obesity E66.01 ; Irritable mood R45.4 ; Hand weakness R29.898 and Vitamin D deficiency E55.[address] [id number], [place] [id number] Jun, [address] [id number], [place] [id number] May, Major depression F32.9 [place] [address] [facility] [id number] [address] [place] [phone] May, Major depression F32.[id number] [place] [address] [id number] May, BMI 50.0-59.9, adult Z68.43 ; Major depr ession F32.9 ; Anxiety F41.9 ; Hypertrophic toenail L60.2 and Pain of left great toe M79.675 [facility] [address] [address] [id number], [place] [id number] May, Recurrent major depressive disorder, in partial remission F33.41 [facility] [address] [place] [id number] [address] [place] [phone] Apr, [facility] [id number] [place] [address] [id number] Apr, [facility] [address] [place] [id number] [address] [place] [phone] Apr, Major depression F32.[address] [place] [id number] [place] [address] [id number] Apr, Severe episode of recurrent major depres sive disorder, without psychotic features F33.2 ; Anxiety F41.9 and Insomnia G47.00 [facility] [id number] [place] [address] [id number] Apr, [facility] [address] [facility] [id number] [address] [place] [phone] Apr, [facility] [id number] [place] [address] [id number] Apr, [facility] [address] [id number], [place] [id number] Mar, [facility] [id number] [place] [address] [id number] Mar, Allergic conjunctivitis of both eyes H10 .13 [facility] [address] [facility] [id number] [address] [place] [phone] Mar, Major depression F32.9 [facility] [id number] [place] [address] [id number] Mar, Metabolic syndrome E88.81 ; History of g astric bypass Z98.890 ; Benign essential hypertension I10 and Allergic conjunctivitis of both eyes H10.13 [facility] [address] [facility] [id number] [address] [place] [phone] 17 Mar, 2017 Major depression F32.9 [facility] [id number] [place] [address] [id number] Feb, [facility] [address] [facility] [id number] [address] [place] [phone] Feb, Major depression F32.9 [facility] [id number] [place] [address] [id number] Feb, Subacute maxillary sinusitis J01.00 and Bronchitis J40 [place] [address] [facility] [id number] [address] [place] [phone] Feb, Major depressive disorder, r ecurrent, moderate F33.1 [facility] [address] [id number], [place] [id number] Jan, [place] [id number] [place] [address] [id number] Jan, Acute non-recurrent maxillary sinusitis J01.00 and Skin tag L91.8 [facility] [id number] [place] [address] [id number] Jan, Cough R05 and Sinus congestion R09.81 [facility] [address] [id number], [place] [id number] Jan, [facility] [id number] [place] [address] [id number] Jan, Benign essential hypertension I10 ; Hist ory of gastric bypass Z98.890 and Nausea and vomiting in adult R11.2 [place] [address] [facility] [id number] [address] [place] [phone] Jan, Major depressive disorder, r ecurrent, moderate F33.1 [place] [address] [facility] [id number] [address] [place] [phone] Dec, Insomnia G47.00 ; Recurrent major depressive disorder, in partial remission F33.41 and Morbid obesity E66.01 [facility] [address] [id number], [place] [id number] Dec, [facility] [address] [id number], [place] [id number] Dec, Chronic bacterial conjunctivitis of left eye H10.[address] [id number], [place] [id number] Nov, [address] [id number] [place] [address] [id number] Nov, Dental examination Z01.[address] [id number], [place] [id number] Nov, Benign essential hypertension I10 ; Hist ory of gastric bypass Z98.890 and Nausea and vomiting in adult R11.2 [place] [id number] [place] [phone] Nov, Major depressive disorder, r ecurrent, moderate F33.1 ; Generalized anxiety disorder F41.1 and Insomnia due to other mental disorder F51.05 [place] [id number] [place] [phone] Nov, Recurrent major depressive d isorder, in partial remission F33.41 ; Insomnia G47.00 and Morbid obesity E66.01 [facility] [address] [place] [id number] [place] [id number] October, Abscess of left arm L02.414 [place] [address] [place] [id number] [place] [phone] October, Morbid obesity E66.01 ; Lida r depression F32.9 and Recurrent major depressive disorder, in partial remission F33.41 [place] [address] [facility] [id number][place] [id number] Sep, Benign essential hypertension I10 ; Morb id obesity E66.01 ; S/P gastric bypass Z98.84 ; Abscess L02.91 and Chronic bacterial conjunctivitis of left eye H10.402 [place] [address] [id number], [place] [id number] Sep, Dental examination Z01.20 [facility] [address] [facility] [id number] [address] [place] [phone] Sep, Morbid obesity E66.01 ; Lida r depression F32.9 and Recurrent major depressive disorder, in partial remission F33.41 [place] [address] [facility] [id number] [address] [place] [phone] Jul, [facility] [address] [facility] [id number] [address] [place] [phone] Jul, Major depressive disorder, r ecurrent, moderate F33.1 [place] [address] [place] [id number] [address] [place] [phone] Jul, Major depressive disorder, r ecurrent, moderate F33.1 and Generalized anxiety disorder F41.[address] [id number], [place] [id number] Jul, Cough R05 [place] [address] [facility] [id number] [address] [place] [phone] 16 Jul, 2016 Morbid obesity E66.01 ; Lida r depression F32.9 and Recurrent major depressive disorder, in partial remission F33.[address] [place] [address] [id number], [place] [id number] Jul, [facility] [address] [id number], [place] [id number] Jul, [facility] [address] [address] [id number], [place] [id number] Jul, Gastroenteritis K52.9 and Cough R05 [place] [address] [facility] [address] [id number], [place] [id number] Jun, Acute bacterial conjunctivitis of left e ye H10.32 [place] [address] [facility] [id number] [address] [place] [phone] Jun, [place] [address] [facility] [id number] [address] [place] [phone] Jun, Recurrent major depressive d isorder, in partial remission F33.41 [place] [address] [facility] [id number] [address] [place] [phone] May, Major depression F32.9 and M orbid obesity E66.01 [place] [address] [facility] [id number] [address] [place] [phone] May, [place] [address] [id number], [place] [id number] May, Thrush B37.0 [place] [address] [facility] [id number] [address] [place] [phone] Apr, Major depressive disorder, r ecurrent, moderate F33.1 [place] [address] [facility] [id number] [address] [place] [phone] Apr, Insomnia G47.00 ; Major depr ession F32.9 and Recurrent major depressive disorder, in partial remission F33.41 [place] [address] [place] [id number] [address] [place] [phone] Apr, [place] [address] [facility] [id number] [address] [place] [phone] 02 Apr, 2016 Major depression F32.9 and R ecurrent major depressive disorder, in partial remission F33.41 [facility] [address] [id number], [place] [id number] Mar, Benign essential hypertension I10 ; Morb id obesity E66.01 ; Impacted cerumen of both ears H61.23 ; Laceration of finger of right hand, initial encounter S61.219A and Encounter for immunization Z23 [place] [address] [facility] [id number] [address] [place] [phone] Mar, [facility] [address] [facility] [id number] [address] [place] [phone] Mar, [facility] [address] [facility] [id number] [address] [place] [phone] Mar, [facility] [address] [id number], [place] [id number] Feb, Nausea R11.0 ; Blood in the stool K92.1 and Benign essential hypertension I10 [facility] [address] [facility] [id number] [address] [place] [phone] Feb, Major depression F32.9 and R ecurrent major depressive disorder, in partial remission F33.41 [facility] [address] [address] [id number], [place] [id number] Feb, Recurrent major depressive disorder, in partial remission F33.41 [facility] [address] [id number], [place] [id number] Feb, [facility] [address] [id number], [place] [id number] Jan, [facility] [address] [id number], [place] [id number] Jan, Benign essential hypertension I10 ; Robert a R60.9 and Hyperlipidemia, unspecified hyperlipidemia type E78.5 [facility] [address] [id number], [place] [id number] Jan, Recurrent major depressive disorder, in partial remission F33.41 [facility] [address] [id number] [place] [id number] Jan, [facility] [address] [id number], [place] [id number] Jan, [facility] [address] [id number], [place] [id number] Jan, [facility] [address] [facility] [id number] [address] [place] [phone] Jan, [facility] [address] [facility] [id number] [address] [place] [phone] Dec, [facility] [address] [facility] [id number] [address] [place] [phone] Nov, [facility] [address] [facility] [id number] [address] [place] [phone] Nov, Major depression F32.9 [facility] [address] [place] [id number] [address] [place] [phone] Nov, [facility] [address] [facility] [id number] [address] [place] [phone] Nov, [place] [address] [phone] Nov, Major depressive disorder, r ecurrent episode, mild F33.0 and Anxiety F41.[address] [place] [id number] [place] [address] [id number] Nov, [place] [id number] [place] [address] [id number] October, Left elbow pain M25.522 and Other season al allergic rhinitis J30.[id number] [place] [address] [id number] October, [place] [address] [place] [id number] [address] [place] [phone] October, Major depressive disorder, r ecurrent, moderate F33.1 [place] [address] [facility] [id number] [address] [place] [phone] October, Major depression F32.9 [place] [address] [place] [id number] [address] [place] [phone] Sep, [place] or callus L84 and Onych omycosis B35.1 [place] [address] [facility] [id number] [address] [place] [phone] Sep, Major depressive disorder, r ecurrent, moderate F33.1 [place] [address] [facility] [id number] [address] [place] [phone] 18 Sep, 2015 Major depression F32.9 [facility] [address] [facility] [id number] [address] [place] [phone] Sep, Moderate episode of recurren t major depressive disorder F33.1 [facility] [id number] [place] [address] [id number] Sep, Muscle strain T14.8 [facility] [address] [facility] [id number] [address] [place] [phone] Aug, Major depression F32.9 [facility] [address] [facility] [id number] [address] [place] [phone] Aug, Major depression F32.9 [facility] [address] [facility] [id number] [address] [place] [phone] Jul, Morbid obesity E66.01 and Ma cora depression F32.9 [facility] [address] [facility] [id number] [address] [place] [phone] Jul, Depression, major, recurrent , moderate F33.1 [facility] [address] [id number], [place] [id number] Jul, [facility] [address] [facility] [id number] [address] [place] [phone] Jul, [facility] [address] [facility] [id number] [address] [place] [phone] Jul, Major depression F32.9 and M orbid obesity E66.01 [facility] [id number] [place] [address] [id number] Jul, Type II diabetes mellitus E11.9 ; Callus of foot L84 ; Benign essential hypertension I10 and Renal insufficiency N28.9 [facility] [address] [facility] [id number] [address] [place] [phone] 09 Jul, 2015 Depression, major, recurrent , moderate F33.1 [place] [address] [facility] [id number] [address] [place] [phone] 05 Jul, 2015 Major depression F32.9 [facility] [address] [facility] [id number] [address] [place] [phone] Jul, [facility] [address] [facility] [id number] [address] [place] [phone] Jun, Major depression F32.9 [facility] [address] [facility] [id number] [address] [place] [phone] Jun, Major depressive disorder, r ecurrent, moderate F33.1 [place] [address] [facility] [id number] [address] [place] [phone] Jun, [place] [address] [facility] [id number] [address] [place] [phone] Jun, Major depressive disorder, r ecurrent, moderate F33.1 and Major depression F32.9 [facility] [id number] [place] [address] [id number] Jun, Type II diabetes mellitus E11.9 [place] [address] [facility] [id number] [address] [place] [phone] Jun, Depression, major, recurrent , moderate F33.1 [place] [address] [facility] [id number] [address] [place] [phone] May, Major depressive disorder, r ecurrent, moderate F33.1 [place] [address] [facility] [id number] [address] [place] [phone] May, [facility] [id number] [place] [address] [id number] May, Edema R60.9 [facility] [address] [facility] [id number] [address] [place] [phone] May, Insomnia G47.00 and Major de pression F32.9 [facility] [id number] [place] [address] [id number] 15 May, 2015 Morbid obesity E66.01 ; Edema R60.9 ; Sh ortness of breath R06.02 ; Benign essential hypertension I10 and Renal insufficiency N28.9 [facility] [address] [id number] [id number] May, Hyperlipemia 272.4 and Renal insufficien cy N28.9 [facility] [address] [facility] [id number] [address] [place] [phone] Apr, Major depression F32.9 [facility] [address] [facility] [id number] [address] [place] [phone] Apr, [place] [address] [address] [facility] [id number] [address] [place] [id number] Apr, Major depressive disorder, r ecurrent, moderate F33.1 [facility] [address] [id number] [id number] Apr, Type II diabetes mellitus E11.9 ; Benign essential hypertension I10 ; Edema R60.9 and Renal insufficiency N28.9 [place] [address] [address] [facility] [id number] [address] [place] [phone] Mar, Major depressive disorder, r ecurrent, moderate F33.1 [place] [address] [address] [facility] [id number] [address] [place] [phone] Mar, [place] [address] [address] [facility] [id number] [address] [place] [phone] Mar, Major depression F32.9 [facility] [address] [id number] [id number] Mar, Morbid obesity E66.01 ; Benign essential hypertension I10 and Type II diabetes mellitus E11.9 [place] [address] [address] [facility] [id number] [address] [place] [id number] 24 Feb, 2015 Major depressive disorder, r ecurrent episode, in partial or unspecified remission 296.35 ; Anxiety state, unspecified 300.00 and Morbid obesity 278.01 [place] [address] [address] [facility] [id number] [address] [place] [id number] Feb, Major depressive disorder, r ecurrent, moderate F33.1 [place] [address] [address] [place] [id number] [address] [place] [phone] Feb, [address] [id number] [place] [id number] 16 Feb, 2015 Vomiting 787.03 and Viral syndrome 079.9 9 [place] [address] [place] [id number] [address] [place] [address] 15 Feb, 2015 Major depression, recurrent 296.30 ; Generalized anxiety disorder 300.02 and No condition on [place] II V71.[address] [id number] [place] [address] [id number] Feb, Skin tag 701.9 [place] [address] [place] [id number] [address] [place] [address] Feb, [place] [address] [place] [id number] [address] [place] [address] Jan, Depression, major, recurrent , moderate 296.[address] [id number] [place] [address] [id number] Jan, Nausea and vomiting 787.01 ; Rib pain on right side 786.50 and Fall on or from sidewalk curb E880.1 [place] [address] [address] [place] [id number] [address] [place] [address] Jan, [place] [address] [address] [facility] [id number] [address] [place] [address] Jan, Major depressive disorder, r ecurrent episode, in partial or unspecified remission 296.35 and Anxiety state, unspecified 300.00 [facility] [address] [place] [address] AVE [id number] [id number] Jan, [place] [address] [address] [facility] [id number] [address] [place] [address] Jan, Depression, major, recurrent , moderate 296.32 [facility] [address] [place] [address] Jan, Major depression, recurrent 296.30 ; No condition on [place] II V71.09 and No condition on axis III V71.09 [facility] [address] [id number] [id number] 13 Jan, 2015 Drug-induced nausea and vomiting 787.01 [facility] [address] [place] [id number] [address] [place] [address] Jan, Depression, major, recurrent , moderate 296.[address] [address] Dec, Depression, major, recurrent , moderate 296.32 [facility] [address] [id number] [id number] Dec, Morbid obesity 278.01 ; Metabolic syndro me 277.7 ; Hyperlipemia 272.4 ; Benign essential hypertension 401.1 ; Dietary counseling V65.3 ; Exercise counseling V65.41 and Inflamed skin tag 701.9 [place] [address] [address] Dec, Depression, major, recurrent , moderate 296.32 [place] [address] [place] [id number] [address] [place] [address] Dec, [place] [address] [address] Dec, Major depression, recurrent 296.30 ; Anxiety, generalized 300.02 and No condition on [place] II V71.09 [place] [address] [address] Dec, Depression, major, recurrent , moderate 296.32 [place] [address] [place] [id number] [address] [place] [address] Dec, Major depressive disorder, r ecurrent episode, moderate 296.32 [place] [address] [place] [address] [place] [address] Dec, Depression, major, recurrent , moderate 296.32 [place] [address] [place] 161682[address] Dec, Depression, major, recurrent , moderate 296.32 [place] [address] [address] Dec, Depression, major, recurrent , moderate 296.32 [place] [address] [place] [id number] Dec, Depression, major, recurrent , moderate 296.32 [place] [id number] Nov, Depression, major, recurrent , moderate 296.[address] [address] Nov, Major depression 296.20 ; So cial phobia 300.23 and No condition on [place] II V71.09 [place] [address] [address] Nov, Depression, major, recurrent , moderate 296.32 [place] [address] [address] Nov, Major depressive disorder, r ecurrent episode, moderate 296.32 and Generalized anxiety disorder 300.02 [place] [address] [address] Nov, Depression, major, recurrent , moderate 296.32 [place] [address] [address] Nov, Depression, major, recurrent , moderate 296.32 [place] [address] [place] [id number] October, Generalized anxiety disorder 300.02 ; No condition on [place] II V71.09 and Major depressive disorder, recurrent 296.30 [facility] [address] [id number] [facility] [address] 14 Sep, 2014 [facility] [address] [id number] [address] [place] [address], [place] [address] 13 Sep, 2014 [facility] [address] [id number] [facility] [address] 24 Aug, 2014 [facility] [address] [id number] [address] [place] [address], [place] [address] 24 Aug, 2014 [facility] [address] [id number] [address] [place] [address], [place] [address] 23 Aug, 2014 [facility] [address] [id number] [address] [place] [address], [place] [address] 23 Aug, 2014 [facility] [address] [id number] [address] [place] [address], [place] [address] 20 Aug, 2014 [facility] [address] [id number] [address] [place] [address], [place] [address] 20 Aug, 2014 [facility] [address] [id number] [address] [place] [address], [place] [address] 20 Aug, 2014 [facility] [address] [id number] [address] [place] [address], [place] [address] 20 Aug, 2014 [facility] [address] [id number] [address] [place] [address], [place] [address] 13 Aug, 2014 [facility] [address] [id number] [address] [place] [address], [place] [address] 13 Aug, 2014 [facility] [address] [id number] [address] [place] [address], [place] [address] 13 Aug, 2014 [facility] [address] [id number] [address] [place] [address], [place] [address] 13 Aug, 2014 [facility] [address] [id number] [address] [place] [address], [place] [address] 12 Aug, 2014 [facility] [address] [id number] [address] [place] [address], [place] [address] Aug, [facility] [address] [id number] [address] [place] [address], [place] [address] Aug, [facility] [address] [id number] [address] [place] [address], [place] [address] Aug, [facility] [address] [id number] [address] [place] [address], [place] [address] Aug, [facility] [address] [id number] [address] [place] [address], [place] [address] Aug, [facility] [address] [id number] [address] [place] [address], [place] [address] Jul, [facility] [address] [id number] [address] [place] [address], [place] [address] Jul, [facility] [address] [id number] [address] [place] [address], [place] [address] Jul, [facility] [address] [id number] [address] [place] [address], [place] [address] Jul, [facility] [address] [id number] [address] [place] [address], [place] [address] Jul, [facility] [address] [id number] [address] [place] [address], [place] [address] Jul, [facility] [address] [id number] [address] [place] [address], [place] [address] Jun, [facility] [address] [id number] [address] [place] [address], [place] [address] Jun, [facility] [address] [id number] [address] [place] [address], [place] [address] Jun, [facility] [address] [id number] [address] [place] [address], [place] [address] Jun, [facility] [address] [id number] [address] [place] [address], [place] [address] Jun, [facility] [address] [id number] [address] [place] [address], [place] [address] Jun, [facility] [address] [id number] [address] [place] [address], [place] [address] Jun, [facility] [address] [id number] [address] [place] [address], [place] [address] Jun, [facility] [address] [id number] [address] [place] [address], [place] [address] Jun, [facility] [address] [id number] [address] [place] [address], [place] [address] Jun, [facility] [address] [id number] [address] [place] [address], [place] [address] Jun, [facility] [address] [id number] [address] [place] [address], [place] [address] Jun, [facility] [address] [id number] [place] [id number] Jun, [facility] [address] [id number] [address] [place] [address], [place] [address] Jun, [facility] [address] [id number] [address] [place] [address], [place] [address] Jun, [facility] [address] [id number] [address] [place] [address], [place] [address] Jun, [facility] [address] [id number] [address] [place] [address], [place] [address] May, [facility] [address] [id number] [address] [place] [address], [place] [address] May, [facility] [address] [id number] [address] [place] [address], [place] [address] May, [facility] [address] [id number] [address] [place] [address], [place] [address] May, [facility] [address] [id number] [address] [place] [address], [place] [address] Apr, [facility] [address] [id number] [address] [place] [address], [place] [address] Apr, [facility] [address] [id number] [address] [place] [address], [place] [address] Apr, [facility] [address] [id number] [address] [place] [address], [place] [address] Apr, [facility] [address] [id number] [address] [place] [address], [place] [address] Apr, [facility] [address] [id number] [address] [place] [address], [place] [address] Apr, [facility] [address] [id number] [address] [place] [address], [place] [address] Apr, [facility] [address] [id number] [address] [place] [address], [place] [address] Apr, [facility] [address] [id number] [address] [place] [address], [place] [address] Apr, [facility] [address] [id number] [address] [place] [address], [place] [address] Apr, [facility] [address] [id number] [address] [place] [address], [place] [address] Apr, [facility] [address] [id number] [address] [place] [address], [place] [address] Apr, [facility] [address] [id number] [address] [place] [address], [place] [address] Apr, [facility] [address] [id number] [address] [place] [address], [place] [address] Apr, [facility] [address] [id number] [address] [place] [address], [place] [address] Apr, [facility] [address] [id number] [address] [place] [address], [place] [address] Apr, [facility] [address] [id number] [address] [place] [address], [place] [address] Apr, [facility] [address] [id number] [address] [place] [address], [place] [address] Apr, [facility] [address] [id number] [address] [place] [address], [place] [address] Apr, [facility] [address] [id number] [address] [place] [address], [place] [address] Apr, [facility] [address] [id number] [address] [place] [address], [place] [address] Mar, [facility] [address] [id number] [address] [place] [address], [place] [address] Mar, [facility] [address] [id number] [address] [place] [address], [place] [address] Mar, [facility] [address] [id number] [address] [place] [address], [place] [address] Mar, [facility] [address] [id number] [address] [place] [address] Mar, [facility] [address] [id number] [address] [place] [address], [place] [address] Mar, [facility] [address] [id number] [address] [place] [address], [place] [address] Mar, [facility] [address] [id number] [address] [place] [address] Mar, [facility] [address] [id number] [address] [place] [address] Mar, [facility] [address] [id number] [address] [place] [address], [place] [address] Mar, [facility] [address] [id number] [address] [place] [address], [place] [address] Feb, [facility] [address] [id number] [address] [place] [address], [place] [address] Feb, [facility] [address] [id number] [facility] [place] [address] Feb, [facility] [address] [id number] [address] [place] [address], [place] [address] Feb, [facility] [address] [id number] [address] [place] [address], [place] [address] Jan, [facility] [address] [id number] [address] [place] [address], [place] [address] Jan, [facility] [address] [id number] [address] [place] [address], [place] [address] Jan, [facility] [address] [id number] [address] [place] [address], [place] [address] Jan, [facility] [address] [id number] [address] [place] [address], [place] [address] Jan, [facility] [address] [id number] [address] [place] [address], [place] [address] Jan, [facility] [address] [id number] [address] [place] [address], [place] [address] Dec, [facility] [address] [id number] [address] [place] [address], [place] [address] Dec, [facility] [address] [id number] [address] [place] [address], [place] [address] Nov, [facility] [address] [id number] [address] [place] [address], [place] [address] Nov, [facility] [address] [id number] [address] [place] [address], [place] [address] Nov, [facility] [address] [id number] [address] [place] [address], [place] [address] Nov, [facility] [address] [id number] [address] [place] [address], [place] [address] Nov, [facility] [address] [id number] [address] [place] [address], [place] [address] Nov, [facility] [address] [id number] [address] [place] [address], [place] [address] Sep, [facility] [address] [id number] [address] [place] [address], [place] [address] Sep, [facility] [address] [id number] [address] [place] [address], [place] [address] Sep, [facility] [address] [id number] [address] [place] [address], [place] [address] Sep, [facility] [address] [id number] [address] [place] [address], [place] [address] Aug, [facility] [address] [id number] [address] [place] [address], [place] [address] Aug, [facility] [address] [id number] [address] [place] [address], [place] [address] Jul, [facility] [address] [id number] [address] [place] [address], [place] [address] Jul, [facility] [address] [id number] [address] [place] [address], [place] [address] Jun, [facility] [address] [id number] [address] [place] [address], [place] [address] Jun, [facility] [address] [id number] [address] [place] [address], [place] [address] Jun, [facility] [address] [id number] [address] [place] [address], [place] [address] Jun, [facility] [address] [id number] [address] [place] [address], [place] [address] May, [facility] [address] [id number] [address] [place] [address], [place] [address] May, [facility] [address] [id number] [address] [place] [address], [place] [address] May, [facility] [address] [id number] [address] [place] [address] May, [facility] [address] [id number] [address] [place] [address], [place] [address] May, [facility] [address] [id number] [address] [place] [address], [place] [address] May, [facility] [address] [id number] [address] [place] [address], [place] [address] Apr, [facility] [address] [id number] [address] [place] [address], [place] [address] Apr, [facility] [address] [id number] [address] [place] [address], [place] [address] Apr, [facility] [address] [id number] [address] [place] [address], [place] [address] Apr, [facility] [address] [id number] [address] [place] [address], [place] [address] Mar, [facility] [address] [id number] [address] [place] [address], [place] [address] Mar, [facility] [address] [id number] [address] [place] [address], [place] [address] Mar, [facility] [address] [id number] [address] [place] [address], [place] [address] Mar, [facility] [address] [id number] [address] [place] [address] Feb, [facility] [address] [facility] [id number] [place] [id number] Jan, [facility] [address] [id number] [address] [place] [address], [place] [address] Jan, [facility] [address] [id number] [address] [place] [address] Dec, [facility] [address] [id number] [address] [place] [address] Dec, [facility] [address] [id number] [address] [place] [address] 10 Dec, 2012 [facility] [address] [id number] Kiesha ESCOBEDO S [id number] Dec, [facility] [address] [id number] [address] [place] [address] 17 Nov, 2012 [facility] [address] [id number] [address] [place] [address] Nov, [facility] [address] [id number] [address] [place] [phone] Nov, [facility] [address] [id number] [address] [place] [phone] Nov, [facility] [address] [id number] [address] [place] [phone] Nov, [facility] [address] [id number] [address] [place] [phone] October, [facility] [address] [id number] [address] [place] [phone] October, [facility] [address] [id number] [address] [place] [phone] Aug, [facility] [address] [id number] [address] [place] [phone] Nov, IMMUNIZATIONS No Known Immunizations SOCIAL HISTORY Never Assessed REASON FOR VISIT Pt c/o left eye draining, Sciatica flaring up right leg, refill of baclofen sent on 11/[address] [facility] PLAN OF CARE Activity Details Follow Up prn Reason: VITAL SIGNS Height 71.5 in 2017-12-01 Weight 359.8 lbs 2017-12-01 Temperature 98 degrees Fahrenheit 2017-12-01 Heart Rate 70 bpm 2017-12-01 Respiratory Rate 18 2017-12-01 BMI 49.48 kg/m2 2017-12-01 Blood pressure systolic 122 mmHg 2017-12-01 Blood pressure diastolic 78 mmHg 2017-12-01 MEDICATIONS Medication Instructions Dosage Frequency Start Date End Date Duration S chandni Montelukast Sodium 10 MG TAKE 1 TABLET BY MOUTH ONCE DAILY 90 Active Centrum - Active Lisinopril 40 mg 1 tablet Once a day Orally Active Flovent HFA 110 mcg/act inhalation once per day 1-3 Puffs 1 time pe r day October, 0 Active Flonase 50 mcg/act nasally once per day 1 spray (50 mcg) in each nostril by intranasal route 2 times per day Nov, Active Trazodone HCl 50 mg Orally Once a day- bedtime 1 tablet Nov, Active Zofran 8 MG Orally Once a day 1 tablet 24h A ctive PredniSONE 20 mg Orally Once a day 2 tablet 24h Nov, Nov, 05 days Active Lasix 20 mg Orally Once a day as needed for swelling 1 tablet Active BusPIRone HCl 10 mg Orally Twice a day for anxiety 1 tablet 2016 Active Atenolol 100 mg 1 tablet Once a day Orally Active Viibryd 40 mg Orally Once a day 1 tablet with food 24h May, Active Vitamin D-3 1000 UNIT Orally Once a day 2 capsule 24h Active Baclofen 10 mg Orally Three times a day 1/2 tablet 8h Active Omeprazole 40 mg Orally Once a day 1 tablet 24h 45 d ays Active Ketoconazole 2 % Externally Once a day 1 application to affected area 24 h Active Lamictal 25 MG Orally Once a day 2 tablet 24h Jun, Active Cetirizine HCl 10 mg Orally Once a day 1 tablet 24h Active Polytrim 53080-5.1 UNIT/ML Ophthalmic Four times a day 1 drop in to affected eye 6h Nov, Nov, 07 days Active RESULTS No Results PROCEDURES No [...] 03/2016 Hospitalization History gastric sleeve Hospitalization History [facility] Trouble with left shoulder blade 08/2017
--- OUTSIDE RECORDS SUMMARY | 2019-11-29 09:28 | XMS REPORT ---
Author Author Curt DIAZ [facility] Address [address] [place] [address] Care Team Providers Care Emblem Drawer In Name Role Phone JOE CHRIS Unavailable PROBLEMS Type Condition ICD9-CM Code ELP11-RT Code Onset Dates Condition S tatus SNOMED Code Problem Metabolic syndrome E88.81 Active 2 34316652 Problem Severe episode of recurrent major depressive disorder, without psychotic features F33.2 Active 18170750 Problem Anxiety F41.9 Active 19546094 Problem Depressive disorder, not elsewhere classified F32. 9 Active 23304518 Problem Sciatica, right side M54.31 Active [id number] Problem Mixed obsessional thoughts and acts F42.2 Active 52859289 Problem Vitamin D deficiency E55.9 Active 28463760 Problem DANIELA (generalized anxiety disorder) F41.1 Active 62233134 Problem BMI 45.0-49.9, adult Z68.42 Active 094461021 Problem Hyperlipemia E78.5 Active 1583165 4 Problem Major depression F32.9 Active 370 022831 Problem Insomnia G47.00 Active 174276777 Problem Renal insufficiency N28.9 Active 429734747 Problem Edema R60.9 Active 211249576 Problem Morbid obesity E66.01 Active 86238 6002 Problem Callus of foot L84 Active 65348 1005 Problem Benign essential hypertension I10 Active 3651876 Problem Recurrent major depressive disorder, in partial remission F33.41 Active [id number] ALLERGIES No Information ENCOUNTERS Encounter Location Date Diagnosis [facility] [address] [facility] [id number] [address] [address] Jan, [facility] [address] [id number] [place] [id number] Jan, [facility] [address] [facility] [id number] [place] [id number] Jan, Benign essential hypertension I10 ; BMI 45.0-49.9, adult Z68.42 ; Metabolic syndrome E88.81 and Allergic rhinitis, unspecified seasonality, unspecified trigger J30.9 [facility] [address] [facility] [id number] [address] [place] [address] Dec, DANIELA (generalized anxiety dis order) F41.1 and Depressive disorder, not elsewhere classified F32.9 [facility] [address] [id number] [place] [id number] Dec, Recurrent major depressive disorder, in partial remission F33.41 [facility] [address] [address] [id number] [place] [id number] Dec, [facility] [address] [id number] [place] [id number] Nov, [facility] [address] [id number] [place] [id number] Nov, Recurrent major depressive disorder, in partial remission F33.41 [facility] [address] [facility] [id number] [address] [place] [address] Nov, Recurrent major depressive d isorder, in partial remission F33.41 ; Mixed obsessional thoughts and acts F42.2 ; DANIELA (generalized anxiety disorder) F41.1 and BMI 45.0-49.9, adult Z68.42 [facility] [place] [address] [id number] [place] [id number] Nov, [facility] [place] [address] [id number] [place] [phone] Nov, Other conjunctivitis of both eyes H10.89 and Sciatica, right side M54.31 [facility] [place] [address] [id number] [place] [id number] Nov, [facility] [address] [address] [id number] [place] [id number] Nov, [facility] [address] [id number] [place] [id number] October, [facility] [address] [id number] [place] [id number] October, [facility] [address] [facility] [id number] [address] [place] [address] October, BMI 45.0-49.9, adult Z68.42 ; Mixed obsessional thoughts and acts F42.2 ; Recurrent major depressive disorder, in partial remission F33.41 and DANIELA (generalized anxiety disorder) F41.1 [facility] [id number] [place], [place] [id number] October, Benign essential hypertension I10 ; Morb id obesity E66.01 and BMI 45.0-49.9, adult Z68.42 [facility] [place] [facility] [id number] [place] [id number] Sep, [facility] [address] [id number] [place] [id number] Sep, [facility] [address] [address] [id number] [place], [place] [id number] Sep, [facility] [address] [id number] [place], [place] [id number] Sep, Hospital discharge follow-up Z09 ; Aller gic rhinitis, unspecified seasonality, unspecified trigger J30.9 and Shortness of breath R06.02 [facility] [address] [id number] [place], [place] [id number] Sep, Recurrent major depressive disorder, in partial remission F33.41 [facility] [id number] [place], [place] [id number] Aug, Irritable mood R45.4 [facility] [address] [facility] [id number] [address] [place] [address] Aug, [facility] [id number] [place], [place] [id number] Jul, Benign essential hypertension I10 ; Robert a R60.9 and Impacted cerumen of left ear H61.22 [facility] [address] [facility] [id number] [address] [place] [phone] 14 Jul, 2017 Major depression F32.9 ; Rec urrent major depressive disorder, in partial remission F33.41 and Anxiety F41.9 [place] [address] [facility] [id number] [address] [place] [address] Jun, Major depression F32.9 ; Rec urrent major depressive disorder, in partial remission F33.41 and Anxiety F41.9 [facility] [address] [id number] [place] [id number] Jun, Major depression F32.9 ; Morbid obesity E66.01 ; Irritable mood R45.4 ; Hand weakness R29.898 and Vitamin D deficiency E55.[address] [place] [id number] [place] [id number] Jun, [facility] [id number] [place] [address] [id number] May, Major depression F32.9 [place] [address] [facility] [id number] [address] [place] [address] May, Major depression F32.9 [facility] [id number] [place] [address] [id number] May, BMI 50.0-59.9, adult Z68.43 ; Major depr ession F32.9 ; Anxiety F41.9 ; Hypertrophic toenail L60.2 and Pain of left great toe M79.675 [facility] [address] [id number] [place] [phone] May, Recurrent major depressive disorder, in partial remission F33.41 [place] [address] [facility] [id number] [address] [place] [address] Apr, [place] [address] [id number] [place] [id number] Apr, [place] [address] [facility] [id number] [address] [place] [address] Apr, Major depression F32.9 [facility] [address] [id number] [place], [place] [id number] Apr, Severe episode of recurrent major depres sive disorder, without psychotic features F33.2 ; Anxiety F41.9 and Insomnia G47.00 [facility] [place] [address] [id number] [place], [place] [id number] Apr, [facility] [address] [facility] [id number] [address] [place] [address] Apr, [facility] [place] [id number] [place] [address] [id number] Apr, [facility] [address] [id number] [place] [id number] Mar, [facility] [place] [id number] [place] [address] [id number] Mar, Allergic conjunctivitis of both eyes H10 .13 [facility] [address] [facility] [id number] [address] [place] [address] Mar, Major depression F32.9 [facility] [address] [id number] [place], [place] [id number] Mar, Metabolic syndrome E88.81 ; History of g astric bypass Z98.890 ; Benign essential hypertension I10 and Allergic conjunctivitis of both eyes H10.13 [facility] [address] [facility] [id number] [address] [place] [address] Mar, Major depression F32.9 [facility] [address] [id number] [place], [place] [id number] Feb, [facility] [address] [facility] [id number] [address] [place] [address] Feb, Major depression F32.[address] [facility] [id number] [place] [address] [id number] Feb, Subacute maxillary sinusitis J01.00 and Bronchitis J40 [facility] [address] [facility] [id number] [address] [place] [address] Feb, Major depressive disorder, r ecurrent, moderate F33.1 [facility] [address] [id number] [place], [place] [id number] Jan, [facility] [place] [address] [id number] [place], [place] [id number] Jan, Acute non-recurrent maxillary sinusitis J01.00 and Skin tag L91.8 [facility] [place] [address] [id number] [place], [place] [id number] Jan, Cough R05 and Sinus congestion R09.81 [facility] [place] [address] [id number] [place], [place] [id number] Jan, [facility] [address]LE[facility] [id number] [place], [place] [id number] Jan, Benign essential hypertension I10 ; Hist ory of gastric bypass Z98.890 and Nausea and vomiting in adult R11.2 [facility] [address] [facility] [id number] [address] [place] [address] Jan, Major depressive disorder, r ecurrent, moderate F33.1 [facility] [address] [facility] [id number] [address] [place] [address] Dec, Insomnia G47.00 ; Recurrent major depressive disorder, in partial remission F33.41 and Morbid obesity E66.01 [facility] [address] [id number] [place], [place] [id number] Dec, [facility] [address] [id number] [place], [place] [id number] Dec, Chronic bacterial conjunctivitis of left eye H10.402 [facility] [address] [id number] [place] [id number] Nov, [facility] [place] [address] [id number] [place], [place] [id number] Nov, Dental examination Z01.20 [place] [address] [id number] [place] [id number] 23 Nov, 2016 Benign essential hypertension I10 ; Hist ory of gastric bypass Z98.890 and Nausea and vomiting in adult R11.2 [place] [address] [facility] [id number] [address] [place] [phone] 13 Nov, 2016 Major depressive disorder, r ecurrent, moderate F33.1 ; Generalized anxiety disorder F41.1 and Insomnia due to other mental disorder F51.05 [place] [address] [facility] [id number] [address] [place] [address] 12 Nov, 2016 Recurrent major depressive d isorder, in partial remission F33.41 ; Insomnia G47.00 and Morbid obesity E66.01 [facility] [address] [id number] [place] [id number] October, Abscess of left arm L02.[address] [id number] [address] [place] [address] October, Morbid obesity E66.01 ; Lida r depression F32.9 and Recurrent major depressive disorder, in partial remission F33.[address] [id number] [place], [place] [id number] Sep, Benign essential hypertension I10 ; Morb id obesity E66.01 ; S/P gastric bypass Z98.84 ; Abscess L02.91 and Chronic bacterial conjunctivitis of left eye H10.[address] [id number] [place], [place] [id number] Sep, Dental examination Z01.20 [place] [address] [facility] [id number] [address] [place] [address] Sep, Morbid obesity E66.01 ; Lida r depression F32.9 and Recurrent major depressive disorder, in partial remission F33.41 [place] [address] [facility] [id number] [address] [place] [phone] Jul, [place] [address] [facility] [id number] [address] [place] [phone] Jul, Major depressive disorder, r ecurrent, moderate F33.1 [place] [address] [place] [id number] [address] [place] [address] Jul, Major depressive disorder, r ecurrent, moderate F33.1 and Generalized anxiety disorder F41.[address] [place] [id number] [place] [address] [id number] Jul, Cough R05 [place] [address] [place] [id number] [address] [place] [address] Jul, Morbid obesity E66.01 ; Lida r depression F32.9 and Recurrent major depressive disorder, in partial remission F33.[address] [place] [id number] [place] [address] [id number] Jul, [place] [id number] [place] [address] [id number] Jul, [place] [id number] [place] [address] [id number] Jul, Gastroenteritis K52.9 and Cough R05 [address] [id number] [place] [address] [id number] Jun, Acute bacterial conjunctivitis of left e ye H10.32 [place] [address] [place] [id number] [address] [place] [address] Jun, [place] [address] [place] [id number] [address] [place] [phone] Jun, Recurrent major depressive d isorder, in partial remission F33.41 [place] [address] [place] [id number] [address] [place] [address] May, Major depression F32.9 and M orbid obesity E66.01 [place] [address] [place] [id number] [address] [place] [address] May, [place] [id number] [place] [address] [id number] May, Thrush B37.0 [place] [address] [facility] [id number] [address] [place] [phone] 15 Apr, 2016 Major depressive disorder, r ecurrent, moderate F33.1 [place] [address] [facility] [id number] [address] [place] [phone] 15 Apr, 2016 Insomnia G47.00 ; Major depr ession F32.9 and Recurrent major depressive disorder, in partial remission F33.41 [place] [address] [facility] [id number] [address] [place] [address] Apr, [place] [address] [facility] [id number] [address] [place] [phone] 02 Apr, 2016 Major depression F32.9 and R ecurrent major depressive disorder, in partial remission F33.[address] [place] [address] [id number] [place] [id number] Mar, Benign essential hypertension I10 ; Morb id obesity E66.01 ; Impacted cerumen of both ears H61.23 ; Laceration of finger of right hand, initial encounter S61.219A and Encounter for immunization Z23 [place] [address] [facility] [id number] [address] [place] [phone] 17 Mar, 2016 [place] [address] [facility] [id number] [address] [place] [phone] Mar, [place] [address] [facility] [id number] [address] [place] [phone] Mar, [place] [address] [id number] [place] [address] [id number] 29 Feb, 2016 Nausea R11.0 ; Blood in the stool K92.1 and Benign essential hypertension I10 [facility] [address] [facility] [id number] [address] [place] [phone] Feb, Major depression F32.9 and R ecurrent major depressive disorder, in partial remission F33.[address] [place] [address] [id number] [place] [address] [place] [id number] Feb, [facility] [place] [address] [id number] [place] [id number] Feb, Recurrent major depressive disorder, in partial remission F33.41 [facility] [place] [address] [id number] [place], [place] [id number] Jan, [facility] [place] [address] [id number] [place], [place] [id number] Jan, Benign essential hypertension I10 ; Robert a R60.9 and Hyperlipidemia, unspecified hyperlipidemia type E78.[address] [facility] [address] [id number] [place] [id number] Jan, Recurrent major depressive disorder, in partial remission F33.41 [facility] [place] [address] [id number] [place], [place] [id number] Jan, [facility] [place] [address] [id number] [place], [place] [id number] Jan, [facility] [place] [address] [id number] [place], [place] [id number] Jan, [facility] [address] [facility] [id number] [address] [place] [id number] Jan, [facility] [address] [facility] [id number] [address] [place] [address] Dec, [facility] [address] [facility] [id number] [address] [place] [address] Nov, [facility] [address] [facility] [id number] [address] [place] [address] Nov, Major depression F32.9 [facility] [address] [facility] [id number] [address] [place] [address] Nov, [facility] [address] [facility] [id number] [address] [place] [phone] Nov, [facility] [address] [facility] [id number] [address] [place] [phone] Nov, Major depressive disorder, r ecurrent episode, mild F33.0 and Anxiety F41.[id number] [place] [address] [id number] Nov, [address] [id number] [place] [address] [id number] October, Left elbow pain M25.522 and Other season al allergic rhinitis J30.[address] [id number] [place] [address] [id number] October, [place] [address] [facility] [id number] [address] [place] [address] October, Major depressive disorder, r ecurrent, moderate F33.1 [place] [address] [facility] [id number] [address] [place] [address] October, Major depression F32.9 [place] [address] [facility] [id number] [address] [place] [address] Sep, Garrett or callus L84 and Onych omycosis B35.1 [place] [address] [facility] [id number] [address] [place] [address] Sep, Major depressive disorder, r ecurrent, moderate F33.1 [place] [address] [facility] [id number] [address] [place] [address] Sep, Major depression F32.9 [place] [address] [facility] [id number] [address] [place] [address] Sep, Moderate episode of recurren t major depressive disorder F33.[address] [id number] [place] [address] [id number] Sep, Muscle strain T14.8 [facility] [address] [facility] [id number] [address] [place] [phone] Aug, Major depression F32.9 [place] [address] [facility] [id number] [address] [place] [address] Aug, Major depression F32.9 [facility] [address] [facility] [id number] [address] [place] [address] Jul, Morbid obesity E66.01 and Ma cora depression F32.9 [facility] [address] [facility] [id number] [address] [place] [phone] Jul, Depression, major, recurrent , moderate F33.[address] [id number] [place] [address] [id number] Jul, [facility] [address] [facility] [id number] [address] [place] [address] Jul, [facility] [address] [place] [id number] [place] [phone] Jul, Major depression F32.9 and M orbid obesity E66.[address] [id number] [place], [place] [id number] Jul, Type II diabetes mellitus E11.9 ; Callus of foot L84 ; Benign essential hypertension I10 and Renal insufficiency N28.9 [facility] [address] [place] [id number] [address] [place] [phone] Jul, Depression, major, recurrent , moderate F33.1 [facility] [address] [place] [address] Jul, Major depression F32.9 [facility] [address] [place] [id number] [address] [place] [id number] Jul, [facility] [address] [facility] [id number] [address] [place] [phone] Jun, Major depression F32.9 [facility] [address] [place] [id number] [address] [place] [phone] Jun, Major depressive disorder, r ecurrent, moderate F33.1 [facility] [address] [place] [id number] [address] [place] [phone] Jun, [place] [address] [facility] [id number] [address] [place] [id number] Jun, Major depressive disorder, r ecurrent, moderate F33.1 and Major depression F32.[id number] [place] [id number] Jun, Type II diabetes mellitus E11.9 [place] [address] [address] [place] [id number] [address] [place] [id number] Jun, Depression, major, recurrent , moderate F33.1 [place] [address] [address] [facility] [id number] [place] [phone] May, Major depressive disorder, r ecurrent, moderate F33.1 [place] [address] [place] [id number] [address] [place] [phone] May, [address] [id number] [place] [address] [id number] May, Edema R60.9 [place] [address] [address] [place] [id number] [address] [place] [phone] May, Insomnia G47.00 and Major de pression F32.[address] [id number] [place] [address] [id number] May, 2015 Morbid obesity E66.01 ; Edema R60.9 ; Sh ortness of breath R06.02 ; Benign essential hypertension I10 and Renal insufficiency N28.[address] [id number] [place] [address] [id number] 14 May, 2015 Hyperlipemia 272.4 and Renal insufficien cy N28.9 [place] [address] [id number] [place] [phone] Apr, Major depression F32.9 [place] [address] [address] [place] [id number] [place] [id number] Apr, [place] [address] [place] [id number] [address] [place] [address] Apr, Major depressive disorder, r ecurrent, moderate F33.1 [facility] [address] [id number] [place] [id number] Apr, Type II diabetes mellitus E11.9 ; Benign essential hypertension I10 ; Edema R60.9 and Renal insufficiency N28.9 [place] [address] [facility] [id number] [address] [place] [address] Mar, Major depressive disorder, r ecurrent, moderate F33.1 [place] [address] [facility] [id number] [address] [place] [address] Mar, [place] [address] [facility] [id number] [address] [place] [address] Mar, Major depression F32.[address] [id number] [place] [id number] Mar, Morbid obesity E66.01 ; Benign essential hypertension I10 and Type II diabetes mellitus E11.9 [place] [address] [address] [facility] [id number] [address] [place] [address] Feb, Major depressive disorder, r ecurrent, moderate F33.1 [place] [address] [facility] [id number] [address] [place] [address] Feb, Major depressive disorder, r ecurrent episode, in partial or unspecified remission 296.35 ; Anxiety state, unspecified 300.00 and Morbid obesity 278.01 [place] [address] [facility] [id number] [address] [place] [address] Feb, [facility] [address] [id number] [place] [id number] 16 Feb, 2015 Vomiting 787.03 and Viral syndrome 079.9 9 [place] [address] [facility] [id number] [address] [place] [address] 15 Feb, 2015 Major depression, recurrent 296.30 ; Generalized anxiety disorder 300.02 and No condition on Carlos II V71.09 [facility] [address] [id number] [place] [id number] Feb, Skin tag 701.9 [facility] [address] [facility] [id number] [address] [place] [address] Feb, [facility] [address] [facility] [id number] [address] [place] [address] Jan, Depression, major, recurrent , moderate 296.32 [facility] [facility] [id number] [place] [id number] Jan, Nausea and vomiting 787.01 ; Rib pain on right side 786.50 and Fall on or from sidewalk curb E880.1 [facility] [address] [facility] [id number] [address] [place] [address] Jan, [facility] [address] [place] [id number] [address] [place] [address] Jan, Major depressive disorder, r ecurrent episode, in partial or unspecified remission 296.35 and Anxiety state, unspecified 300.00 [facility] [address] [facility] [id number] [place] [id number] Jan, [facility] [address] [facility] [id number] [address] [place] [address] Jan, Depression, major, recurrent , moderate 296.32 [facility] [address] [facility] [id number] [address] [place] [address] Jan, Major depression, recurrent 296.30 ; No condition on Carlos II V71.09 and No condition on axis III V71.09 [facility] [address] [place] [address] [id number] [place] [id number] Jan, Drug-induced nausea and vomiting 787.01 [facility] [address] [place] [id number] [address] [place] [address] Jan, Depression, major, recurrent , moderate 296.32 [facility] [address] [place] [id number] [address] [place] [address] Dec, Depression, major, recurrent , moderate 296.32 [facility] [id number] [place] [id number] Dec, Morbid obesity 278.01 ; Metabolic syndro me 277.7 ; Hyperlipemia 272.4 ; Benign essential hypertension 401.1 ; Dietary counseling V65.3 ; Exercise counseling V65.41 and Inflamed skin tag 701.[address] [address] Dec, Depression, major, recurrent , moderate 296.[address] [address] Dec, [address] [address] Dec, Major depression, recurrent 296.30 ; Anxiety, generalized 300.02 and No condition on Carlos II V71.[address] [address] Dec, Depression, major, recurrent , moderate 296.[address] [address] Dec, Major depressive disorder, r ecurrent episode, moderate 296.32 [place] [id number] [address] [place] [address] Dec, Depression, major, recurrent , moderate 296.32 [place] [id number] [address] [place] [address] Dec, Depression, major, recurrent , moderate 296.[address] [address] Dec, Depression, major, recurrent , moderate 296.[address] [address] Dec, Depression, major, recurrent , moderate 296.[address] [address] 17 Nov, 2014 Depression, major, recurrent , moderate 296.32 [facility] [address] [facility] [id number] [address] [place] [address] 16 Nov, 2014 Major depression 296.20 ; So cial phobia 300.23 and No condition on Carlos II V71.09 [facility] [address] [place] [id number] [address] [place] [address] 16 Nov, 2014 Depression, major, recurrent , moderate 296.32 [facility] [address] [place] [id number] [address] [place] [address] 09 Nov, 2014 Major depressive disorder, r ecurrent episode, moderate 296.32 and Generalized anxiety disorder 300.02 [facility] [address] [place] [id number] [place] [address] 09 Nov, 2014 Depression, major, recurrent , moderate 296.32 [facility] [address] [place] [id number] [place] [address] 04 Nov, 2014 Depression, major, recurrent , moderate 296.32 [facility] [address] [place] [id number] [address] [place] [address] October, Generalized anxiety disorder 300.02 ; No condition on Carlos II V71.09 and Major depressive disorder, recurrent 296.30 [facility] [address] [place] [id number] [address] [place] [address] 14 Sep, 2014 [facility] [address] [place] [id number] [address] [place] [address] Sep, [facility] [address] [place] [id number] [address] [place] [address] 24 Aug, 2014 [facility] [address] [place] [id number] [address] [place] [address] Aug, [facility] [address] [place] [id number] [address] [place] [address] Aug, [facility] [address] [place] [id number] [address] [place] [address] Aug, [facility] [address] [id number] [facility] [place] [address] Aug, [facility] [address] [id number] [address] [place] [address], [place] [address] Aug, [facility] [address] [id number] [address] [place] [address], [place] [address] Aug, [facility] [address] [id number] [address] [place] [address], [place] [address] Aug, [facility] [address] [id number] [address] [place] [address], [place] [address] Aug, [facility] [address] [id number] [address] [place] [address], [place] [address] Aug, [facility] [address] [id number] [address] [place] [address], [place] [address] Aug, [facility] [address] [id number] [address] [place] [address], [place] [address] Aug, [facility] [address] [id number] [address] [place] [address], [place] [address] Aug, [facility] [address] [id number] [address] [place] [address], [place] [address] Aug, [facility] [address] [id number] [address] [place] [address], [place] [address] Aug, [facility] [address] [id number] [address] [place] [address], [place] [address] Aug, [facility] [address] [id number] [address] [place] [address], [place] [address] Aug, [facility] [address] [id number] [address] [place] [address], [place] [address] Aug, [facility] [address] [id number] [address] [place] [address], [place] [address] 24 Jul, 2014 [facility] [address] [id number] [address] [place] [address], [place] [address] Jul, [facility] [address] [id number] [address] [place] [address], [place] [address] Jul, [facility] [address] [id number] [address] [place] [address], [place] [address] Jul, [facility] [address] [id number] [address] [place] [address], [place] [address] Jul, [facility] [address] [id number] [address] [place] [address], [place] [address] Jul, [facility] [address] [id number] [address] [place] [address], [place] [address] Jun, [facility] [address] [id number] [address] [place] [address], [place] [address] Jun, [facility] [address] [id number] [address] [place] [address], [place] [address] Jun, [facility] [address] [id number] [address] [place] [address] Jun, [facility] [address] [id number] [address] [place] [address], [place] [address] Jun, [facility] [address] [id number] [address] [place] [address], [place] [address] Jun, [facility] [address] [id number] [address] [place] [address], [place] [address] Jun, [facility] [address] [id number] [address] [place] [address] Jun, [facility] [address] [id number] [address] [place] [address] Jun, [facility] [address] [id number] [address] [place] [address] Jun, [facility] [address] [id number] [address] [place] [address] Jun, [facility] [address] [id number] [address] [place] [address], [place] [address] Jun, [facility] [address] [id number] [place] [id number] Jun, [facility] [address] [id number] [address] [place] [address], [place] [address] Jun, [facility] [address] [id number] [address] [place] [address], [place] [address] Jun, [facility] [address] [id number] [address] [place] [address], [place] [address] Jun, [facility] [address] [id number] [address] [place] [address], [place] [address] May, [facility] [address] [id number] [address] [place] [address], [place] [address] May, [facility] [address] [id number] [address] [place] [address], [place] [address] May, [facility] [address] [id number] [address] [place] [address], [place] [address] May, [facility] [address] [id number] [address] [place] [address], [place] [address] Apr, [facility] [address] [id number] [address] [place] [address], [place] [address] Apr, [facility] [address] [id number] [address] [place] [address], [place] [address] Apr, [facility] [address] [id number] [address] [place] [address], [place] [address] Apr, [facility] [address] [id number] [address] [place] [address], [place] [address] Apr, [facility] [address] [id number] [address] [place] [address], [place] [address] Apr, [facility] [address] [id number] [address] [place] [address], [place] [address] Apr, [facility] [address] [id number] [address] [place] [address], [place] [address] Apr, [facility] [address] [id number] [address] [place] [address], [place] [address] Apr, [facility] [address] [id number] [address] [place] [address], [place] [address] Apr, [facility] [address] [id number] [address] [place] [address], [place] [address] Apr, [facility] [address] [id number] [address] [place] [address], [place] [address] Apr, [facility] [address] [id number] [address] [place] [address], [place] [address] Apr, [facility] [address] [id number] [address] [place] [address], [place] [address] Apr, [facility] [address] [id number] [address] [place] [address], [place] [address] Apr, [facility] [address] [id number] [address] [place] [address], [place] [address] Apr, [facility] [address] [id number] [address] [place] [address], [place] [address] Apr, [facility] [address] [id number] [address] [place] [address], [place] [address] Apr, [facility] [address] [id number] [address] [place] [address] Apr, [facility] [address] [id number] [address] [place] [address], [place] [address] Apr, [facility] [address] [id number] [address] [place] [address], [place] [address] Mar, [facility] [address] [id number] [address] [place] [address], [place] [address] Mar, [facility] [address] [id number] [address] [place] [address], [place] [address] Mar, [facility] [address] [id number] [address] [place] [address], [place] [address] Mar, [facility] [address] [id number] [address] [place] [address], [place] [address] Mar, [facility] [address] [id number] [address] [place] [address], [place] [address] Mar, [facility] [address] [id number] [address] [place] [address], [place] [address] Mar, [facility] [address] [id number] [address] [place] [address], [place] [address] Mar, [facility] [address] [id number] [address] [place] [address], [place] [address] Mar, [facility] [address] [id number] [address] [place] [address], [place] [address] Mar, [facility] [address] [id number] [address] [place] [address], [place] [address] Feb, [facility] [address] [id number] [address] [place] [address], [place] [address] Feb, [facility] [address] [id number] [address] [place] [address], [place] [address] Feb, [facility] [address] [id number] [address] [place] [address], [place] [address] Feb, [facility] [address] [id number] [address] [place] [address], [place] [address] Jan, [facility] [address] [id number] [address] [place] [address], [place] [address] Jan, [facility] [address] [id number] [address] [place] [address], [place] [address] Jan, [facility] [address] [id number] [address] [place] [address], [place] [address] Jan, [facility] [address] [id number] [facility] [place] [address] Jan, [facility] [address] [id number] [facility] [place] [address] Jan, [facility] [address] [id number] [facility] [place] [address] Dec, [facility] [address] [id number] [address] [place] [address], [place] [address] Dec, [facility] [address] [id number] [address] [place] [address], [place] [address] Nov, [facility] [address] [id number] [address] [place] [address], [place] [address] Nov, [facility] [address] [id number] [address] [place] [address], [place] [address] Nov, [facility] [address] [id number] [address] [place] [address], [place] [address] Nov, [facility] [address] [id number] [address] [place] [address], [place] [address] Nov, [facility] [address] [id number] [address] [place] [address], [place] [address] Nov, [facility] [address] [id number] [address] [place] [address], [place] [address] Sep, [facility] [address] [id number] [address] [place] [address], [place] [address] Sep, [facility] [address] [id number] [address] [place] [address], [place] [address] Sep, [facility] [address] [id number] [address] [place] [address], [place] [address] Sep, [facility] [address] [id number] [address] [place] [address], [place] [address] Aug, [facility] [address] [id number] [address] [place] [address], [place] [address] Aug, [facility] [address] [id number] [address] [place] [address], [place] [address] Jul, [facility] [address] [id number] [address] [place] [address], [place] [address] Jul, [facility] [address] [id number] [address] [place] [address], [place] [address] Jun, [facility] [address] [id number] [address] [place] [address], [place] [address] Jun, [facility] [address] [id number] [address] [place] [address], [place] [address] Jun, [facility] [address] [id number] [address] [place] [address], [place] [address] Jun, [facility] [address] [id number] [address] [place] [address], [place] [address] May, [facility] [address] [id number] [address] [place] [address], [place] [address] May, [facility] [address] [id number] [address] [place] [address], [place] [address] May, [facility] [address] [id number] [address] [place] [address], [place] [address] May, [facility] [address] [id number] [address] [place] [address], [place] [address] May, [facility] [address] [id number] [address] [place] [address], [place] [address] May, [facility] [address] [id number] [address] [place] [address], [place] [address] Apr, [facility] [address] [id number] [address] [place] [address], [place] [address] Apr, [facility] [address] [id number] [address] [place] [address], [place] [address] Apr, [facility] [address] [id number] [address] [place] [address], [place] [address] Apr, [facility] [address] [id number] [address] [place] [address], [place] [address] Mar, [facility] [address] [id number] [address] [place] [address], [place] [address] Mar, [facility] [address] [id number] [address] [place] [address], [place] [address] Mar, [facility] [address] [id number] [address] [place] [address], [place] [address] Mar, [facility] [address] [id number] [address] [place] [address], [place] [address] Feb, [facility] [address] [id number] [place] [id number] Jan, [facility] [address] [id number] [address] [place] [address], [place] [address] Jan, [facility] [address] [id number] [address] [place] [address], [place] [id number] Dec, [facility] [address] [id number] [address] [place] [address], [place] [id number] Dec, [facility] [address] [id number] [address] [place] [address], [place] [id number] Dec, [facility] [address] [id number] [place] [id number] Dec, [facility] [address] [id number] [address] [place] [address], [place] [phone] Nov, [facility] [address] [id number] [address] [place] [address], [place] [id number] 14 Nov, 2012 [facility] [address] [id number] [address] [place] [address], [place] [id number] Nov, [facility] [address] [id number] [address] [place] [address], [place] [id number] Nov, [facility] [address] [facility] [id number] [address] [place] [id number] Nov, [facility] [address] [facility] [id number] [address] [place] [id number] October, [facility] [address] [facility] [id number] [address] [place] [id number] October, [facility] [address] [facility] [id number] [address] [place] [id number] Aug, [facility] [address] [facility] [id number] [address] [place] [id number] Nov, IMMUNIZATIONS No Known Immunizations SOCIAL HISTORY [...]
--- OUTSIDE RECORDS SUMMARY | 2019-11-29 09:29 | XMS REPORT ---
Author Author Curt DIAZ [facility] Address [address] [place] [address] Care Team Providers Care Lining Folder Name Role Phone JOE CHRIS Unavailable PROBLEMS Type Condition ICD9-CM Code VRA31-ZZ Code Onset Dates Condition S tatus SNOMED Code Problem Metabolic syndrome E88.81 Active 2 57309232 Problem Severe episode of recurrent major depressive disorder, without psychotic features F33.2 Active 74059397 Problem Anxiety F41.9 Active 45924611 Problem Depressive disorder, not elsewhere classified F32. 9 Active 87461893 Problem Sciatica, right side M54.31 Active [id number] Problem Mixed obsessional thoughts and acts F42.2 Active 56503046 Problem Vitamin D deficiency E55.9 Active 08556333 Problem DANIELA (generalized anxiety disorder) F41.1 Active 30709189 Problem BMI 45.0-49.9, adult Z68.42 Active 874070804 Problem Hyperlipemia E78.5 Active 7921672 4 Problem Major depression F32.9 Active 370 672932 Problem Insomnia G47.00 Active 645231175 Problem Renal insufficiency N28.9 Active 595408647 Problem Edema R60.9 Active 503536753 Problem Morbid obesity E66.01 Active 20189 6002 Problem Callus of foot L84 Active 60617 1005 Problem Benign essential hypertension I10 Active 2585941 Problem Recurrent major depressive disorder, in partial remission F33.41 Active 50073181 ALLERGIES Substance Reaction Event Type Date Status [place] Elm throat swells Drug Allergy October, Active Peanut (Diagnostic) throat swells Drug Allergy October, Active Egg White (Diagnostic) throat swells Drug Allergy October, Acti ve alternaria tenuis throat swells Non Drug Allergy October, Activ e Cows Milk throat swells Non Drug Allergy October, Active Wheat throat swells Non Drug Allergy October, Active Ragweed throat swells Non Drug Allergy October, Active ENCOUNTERS Encounter Location Date Diagnosis [facility] [address] [facility] [id number] [address] [place] [address] Jan, [facility] [address] [place] [id number] [address] [place] [address] Jan, [facility] [address] [id number], [place] [id number] Jan, [facility] [address] [id number], [place] [id number] Jan, Benign essential hypertension I10 ; BMI 45.0-49.9, adult Z68.42 ; Metabolic syndrome E88.81 and Allergic rhinitis, unspecified seasonality, unspecified trigger J30.9 [place] [address] [facility] [id number] [address] [place] [address] Dec, DANIELA (generalized anxiety dis order) F41.1 and Depressive disorder, not elsewhere classified F32.9 [facility] [address] [place] [id number], [place] [id number] Dec, Recurrent major depressive disorder, in partial remission F33.41 [facility] [address] [id number], [place] [id number] Dec, [facility] [address] [id number], [place] [id number] Nov, [facility] [address] [id number], [place] [id number] Nov, Recurrent major depressive disorder, in partial remission F33.41 [place] [address] [facility] [id number] [address] [place] [address] Nov, Recurrent major depressive d isorder, in partial remission F33.41 ; Mixed obsessional thoughts and acts F42.2 ; DANIELA (generalized anxiety disorder) F41.1 and BMI 45.0-49.9, adult Z68.42 [facility] [address] [facility] [address] [id number], [place] [id number] Nov, [facility] [address] [id number], [place] [id number] Nov, Other conjunctivitis of both eyes H10.89 and Sciatica, right side M54.31 [facility] [address] [id number], [place] [id number] Nov, [facility] [address] [place] [address] AVE [id number], [place] [id number] Nov, [facility] [address] [id number], [place] [id number] October, [facility] [address] [id number], [place] [id number] October, [facility] [address] [facility] [id number] [address] [place] [address] October, BMI 45.0-49.9, adult Z68.42 ; Mixed obsessional thoughts and acts F42.2 ; Recurrent major depressive disorder, in partial remission F33.41 and DANIELA (generalized anxiety disorder) F41.1 [facility] [address] [id number], [place] [id number] October, Benign essential hypertension I10 ; Morb id obesity E66.01 and BMI 45.0-49.9, adult Z68.42 [facility] [address] [place] [address] AVE [id number], [place] [id number] Sep, [facility] [address] [id number], [place] [id number] Sep, [facility] [address] [place] [address] [id number], [place] [id number] Sep, [facility] [address] [id number], [place] [id number] Sep, Hospital discharge follow-up Z09 ; Aller gic rhinitis, unspecified seasonality, unspecified trigger J30.9 and Shortness of breath R06.02 [facility] [address] [id number], [place] [id number] Sep, Recurrent major depressive disorder, in partial remission F33.[address] [place] [address] [id number], [place] [id number] Aug, Irritable mood R45.4 [place] [address] [facility] [id number] [address] [place] [address] Aug, [id number] [place] [address] [id number] Jul, Benign essential hypertension I10 ; Robert a R60.9 and Impacted cerumen of left ear H61.22 [place] [address] [facility] [id number] [address] [place] [address] 14 Jul, 2017 Major depression F32.9 ; Rec urrent major depressive disorder, in partial remission F33.41 and Anxiety F41.9 [place] [address] [facility] [id number] [address] [place] [address] Jun, Major depression F32.9 ; Rec urrent major depressive disorder, in partial remission F33.41 and Anxiety F41.[address] [place] [address] [id number], [place] [id number] Jun, Major depression F32.9 ; Morbid obesity E66.01 ; Irritable mood R45.4 ; Hand weakness R29.898 and Vitamin D deficiency E55.[address] [id number], [place] [id number] Jun, [place] [address] [id number], [place] [id number] May, Major depression F32.9 [place] [address] [facility] [id number] [address] [place] [address] May, Major depression F32.[address] [place] [address] [id number], [place] [id number] May, BMI 50.0-59.9, adult Z68.43 ; Major depr ession F32.9 ; Anxiety F41.9 ; Hypertrophic toenail L60.2 and Pain of left great toe M79.675 [facility] [address] [id number], [place] [id number] May, Recurrent major depressive disorder, in partial remission F33.41 [facility] [address] [facility] [id number] [address] [place] [address] Apr, [facility] [id number] [place] [address] [id number] Apr, [facility] [address] [facility] [id number] [address] [place] [address] Apr, Major depression F32.9 [facility] [id number] [place] [address] [id number] Apr, Severe episode of recurrent major depres sive disorder, without psychotic features F33.2 ; Anxiety F41.9 and Insomnia G47.00 [facility] [id number] [place] [address] [id number] Apr, [facility] [address] [facility] [id number] [address] [place] [address] Apr, [facility] [id number] [place] [address] [id number] Apr, [facility] [id number] [place] [address] [id number] Mar, [facility] [id number] [place] [address] [id number] Mar, Allergic conjunctivitis of both eyes H10 .13 [facility] [address] [facility] [id number] [address] [place] [address] Mar, Major depression F32.9 [facility] [id number] [place] [address] [id number] Mar, Metabolic syndrome E88.81 ; History of g astric bypass Z98.890 ; Benign essential hypertension I10 and Allergic conjunctivitis of both eyes H10.13 [facility] [address] [facility] [id number] [address] [place] [address] Mar, Major depression F32.9 [facility] [address] [facility] [id number] [place] [address] [id number] Feb, [facility] [address] [facility] [id number] [address] [place] [address] Feb, Major depression F32.9 [facility] [id number] [place] [address] [id number] Feb, Subacute maxillary sinusitis J01.00 and Bronchitis J40 [place] [address] [facility] [id number] [address] [place] [address] Feb, Major depressive disorder, r ecurrent, moderate F33.1 [facility] [address] [facility] [id number] [place] [address] [id number] Jan, [facility] [id number] [place] [address] [id number] Jan, Acute non-recurrent maxillary sinusitis J01.00 and Skin tag L91.8 [facility] [address] [facility] [address] [id number] [place] [address] [id number] Jan, Cough R05 and Sinus congestion R09.81 [facility] [address] [facility] [id number] [place] [address] [id number] Jan, [facility] [address] [place] [address] [id number] [place] [address] [id number] Jan, Benign essential hypertension I10 ; Hist ory of gastric bypass Z98.890 and Nausea and vomiting in adult R11.2 [facility] [address] [facility] [id number] [address] [place] [address] Jan, Major depressive disorder, r ecurrent, moderate F33.1 [facility] [address] [facility] [id number] [address] [place] [address] Dec, Insomnia G47.00 ; Recurrent major depressive disorder, in partial remission F33.41 and Morbid obesity E66.01 [facility] [address] [facility] [address] [id number], [place] [id number] Dec, [facility] [address] [id number], [place] [id number] Dec, Chronic bacterial conjunctivitis of left eye H10.402 [facility] [address] [id number], [place] [id number] Nov, [address] [id number], [place] [id number] Nov, Dental examination Z01.[address] [id number], [place] [id number] Nov, Benign essential hypertension I10 ; Hist ory of gastric bypass Z98.890 and Nausea and vomiting in adult R11.2 [place] [address] [place] [id number] [place] [address] Nov, Major depressive disorder, r ecurrent, moderate F33.1 ; Generalized anxiety disorder F41.1 and Insomnia due to other mental disorder F51.05 [place] [address] [place] [id number] [place] [address] 12 Nov, 2016 Recurrent major depressive d isorder, in partial remission F33.41 ; Insomnia G47.00 and Morbid obesity E66.01 [facility] [address] [facility] [id number] [place] [id number] October, Abscess of left arm L02.414 [place] [address] [place] [address] October, Morbid obesity E66.01 ; Lida r depression F32.9 and Recurrent major depressive disorder, in partial remission F33.41 [place] [address] [facility] [address] [id number], [place] [id number] Sep, Benign essential hypertension I10 ; Morb id obesity E66.01 ; S/P gastric bypass Z98.84 ; Abscess L02.91 and Chronic bacterial conjunctivitis of left eye H10.[address] [facility] [address] [id number], [place] [id number] Sep, Dental examination Z01.20 [facility] [address] [place] [id number] [place] [address] Sep, Morbid obesity E66.01 ; Lida r depression F32.9 and Recurrent major depressive disorder, in partial remission F33.41 [place] [address] [place] [id number] [place] [address] Jul, [facility] [address] [place] [id number] [place] [address] Jul, Major depressive disorder, r ecurrent, moderate F33.1 [place] [address] [place] [id number] [place] [address] Jul, Major depressive disorder, r ecurrent, moderate F33.1 and Generalized anxiety disorder F41.[address] [place] [id number] [place] [address] [id number] Jul, Cough R05 [place] [address] [place] [address] Jul, Morbid obesity E66.01 ; Lida r depression F32.9 and Recurrent major depressive disorder, in partial remission F33.41 [facility] [address] [id number], [place] [id number] Jul, [facility] [address] [id number], [place] [id number] Jul, [facility] [address] [id number], [place] [id number] Jul, Gastroenteritis K52.9 and Cough R05 [facility] [address] [id number], [place] [id number] Jun, Acute bacterial conjunctivitis of left e ye H10.32 [facility] [address] [facility] [id number] [address] [place] [address] Jun, [place] [address] [facility] [id number] [address] [place] [address] Jun, Recurrent major depressive d isorder, in partial remission F33.41 [facility] [address] [facility] [id number] [address] [place] [address] May, Major depression F32.9 and M orbid obesity E66.01 [place] [address] [facility] [id number] [address] [place] [address] May, [place] [id number] [place] [address] [id number] May, Thrush B37.0 [place] [address] [address] Apr, Major depressive disorder, r ecurrent, moderate F33.1 [place] [address] [address] Apr, Insomnia G47.00 ; Major depr ession F32.9 and Recurrent major depressive disorder, in partial remission F33.41 [place] [address] [place] [address] Apr, [place] [address] [place] [id number] [place] [address] Apr, Major depression F32.9 and R ecurrent major depressive disorder, in partial remission F33.[address] [place] [id number] [place] [address] [id number] Mar, Benign essential hypertension I10 ; Morb id obesity E66.01 ; Impacted cerumen of both ears H61.23 ; Laceration of finger of right hand, initial encounter S61.219A and Encounter for immunization Z23 [place] [address] [facility] [id number] [address] [place] [address] 17 Mar, 2016 [place] [address] [facility] [id number] [address] [place] [address] Mar, [place] [address] [facility] [id number] [address] [place] [address] Mar, [facility] [address] [id number], [place] [id number] Feb, Nausea R11.0 ; Blood in the stool K92.1 and Benign essential hypertension I10 [facility] [address] [facility] [id number] [address] [place] [address] Feb, Major depression F32.9 and R ecurrent major depressive disorder, in partial remission F33.41 [facility] [address] [id number], [place] [id number] Feb, [facility] [id number] [place] [address] [id number] Feb, Recurrent major depressive disorder, in partial remission F33.41 [facility] [address] [id number], [place] [id number] Jan, [facility] [address] [id number], [place] [id number] Jan, Benign essential hypertension I10 ; Robert a R60.9 and Hyperlipidemia, unspecified hyperlipidemia type E78.5 [facility] [address] [id number], [place] [id number] Jan, Recurrent major depressive disorder, in partial remission F33.41 [facility] [address] [facility] [id number] [place] [id number] Jan, [facility] [address] [id number], [place] [id number] Jan, [facility] [address] [id number], [place] [id number] Jan, [facility] [address] [facility] [id number] [address] [place] [address] Jan, [facility] [address] [facility] [id number] [address] [place] [address] Dec, [facility] [address] [facility] [id number] [address] [place] [address] Nov, [facility] [address] [facility] [id number] [address] [place] [address] Nov, Major depression F32.9 [facility] [address] [facility] [id number] [address] [place] [address] Nov, [facility] [address] [facility] [id number] [address] [place] [address] Nov, [facility] [address] [facility] [id number] [address] [place] [address] Nov, Major depressive disorder, r ecurrent episode, mild F33.0 and Anxiety F41.9 [facility] [address] [id number], [place] [id number] Nov, [place] [id number] [place] [address] [id number] October, Left elbow pain M25.522 and Other season al allergic rhinitis J30.[address] [id number], [place] [id number] October, [place] [address] [place] [id number] [address] [place] [address] October, Major depressive disorder, r ecurrent, moderate F33.1 [place] [address] [facility] [id number] [address] [place] [address] October, Major depression F32.9 [place] [address] [facility] [id number] [address] [place] [address] Sep, [place] or callus L84 and Onych omycosis B35.1 [place] [address] [facility] [id number] [address] [place] [address] Sep, Major depressive disorder, r ecurrent, moderate F33.1 [place] [address] [facility] [id number] [address] [place] [address] Sep, Major depression F32.9 [place] [address] [facility] [id number] [address] [place] [address] Sep, Moderate episode of recurren t major depressive disorder F33.[address] [id number] [place] [address] [id number] Sep, Muscle strain T14.8 [facility] [address] [facility] [id number] [address] [place] [address] Aug, Major depression F32.9 [facility] [address] [facility] [id number] [address] [place] [address] Aug, Major depression F32.9 [facility] [address] [place] [id number] [place] [address] Jul, Morbid obesity E66.01 and Ma cora depression F32.9 [facility] [address] [place] [id number] [place] [address] Jul, Depression, major, recurrent , moderate F33.[id number] [place] [address] [id number] Jul, [facility] [address] [place] [id number] [address] [place] [address] Jul, [facility] [address] [facility] [id number] [address] [place] [address] Jul, Major depression F32.9 and M orbid obesity E66.[address] [id number] [place] [address] [id number] Jul, Type II diabetes mellitus E11.9 ; Callus of foot L84 ; Benign essential hypertension I10 and Renal insufficiency N28.9 [facility] [address] [facility] [id number] [address] [place] [address] Jul, Depression, major, recurrent , moderate F33.1 [facility] [address] [facility] [id number] [address] [place] [address] Jul, Major depression F32.9 [place] [address] [facility] [id number] [address] [place] [phone] 04 Jul, 2015 [place] [address] [place] [id number] [place] [id number] Jun, Major depression F32.9 [place] [address] [facility] [id number] [address] [place] [address] Jun, Major depressive disorder, r ecurrent, moderate F33.1 [place] [address] [address] Jun, [place] [address] [facility] [id number] [place] [address] Jun, Major depressive disorder, r ecurrent, moderate F33.1 and Major depression F32.[address] [place] [place] [id number] [place] [address] [id number] Jun, Type II diabetes mellitus E11.9 [place] [address] [place] [id number] [address] [place] [address] Jun, Depression, major, recurrent , moderate F33.1 [place] [address] [place] [id number] [address] [place] [address] May, Major depressive disorder, r ecurrent, moderate F33.1 [place] [address] [address] [place] [id number] [address] [place] [phone] May, [place] [address] [id number] [id number] May, Edema R60.9 [place] [address] [address] [facility] [id number] [address] [place] [id number] 17 May, 2015 Insomnia G47.00 and Major de pression F32.[address] [facility] [address] [id number] [id number] May, 2015 Morbid obesity E66.01 ; Edema R60.9 ; Sh ortness of breath R06.02 ; Benign essential hypertension I10 and Renal insufficiency N28.[address] [facility] [id number] [place] [id number] May, Hyperlipemia 272.4 and Renal insufficien cy N28.9 [facility] [address] [facility] [id number] [address] [place] [phone] Apr, Major depression F32.9 [place] [address] [address] [facility] [id number] [address] [place] [phone] Apr, [place] [address] [address] [facility] [id number] [address] [place] [phone] Apr, Major depressive disorder, r ecurrent, moderate F33.[id number] [place] [address] [id number] Apr, Type II diabetes mellitus E11.9 ; Benign essential hypertension I10 ; Edema R60.9 and Renal insufficiency N28.9 [place] [address] [address] [facility] [facility] [id number] [address] [place] [address] Mar, Major depressive disorder, r ecurrent, moderate F33.1 [place] [address] [address] [facility] [id number] [address] [place] [address] Mar, [place] [address] [address] [facility] [id number] [address] [place] [address] Mar, Major depression F32.[id number] [place] [id number] Mar, Morbid obesity E66.01 ; Benign essential hypertension I10 and Type II diabetes mellitus E11.9 [place] [address] [address] [facility] [id number] [address] [place] [address] Feb, Major depressive disorder, r ecurrent, moderate F33.1 [place] [address] [address] [facility] [id number] [address] [place] [address] Feb, Major depressive disorder, r ecurrent episode, in partial or unspecified remission 296.35 ; Anxiety state, unspecified 300.00 and Morbid obesity 278.01 [place] [address] [address] [facility] [id number] [address] [place] [address] Feb, [address] [id number][place] [id number] Feb, Vomiting 787.03 and Viral syndrome 079.9 9 [place] [address] [place] [id number] [address] [place] [address] Feb, Major depression, recurrent 296.30 ; Generalized anxiety disorder 300.02 and No condition on [place] II V71.[address] [id number][place] [id number] Feb, Skin tag 701.9 [place] [address] [address] [place] [id number] [address] [place] [address] Feb, [place] [address] [address] [place] [id number] [address] [place] [address] Jan, Depression, major, recurrent , moderate 296.[address] [id number][place] [id number] Jan, Nausea and vomiting 787.01 ; Rib pain on right side 786.50 and Fall on or from sidewalk curb E880.1 [place] [address] [address] [place] [id number] [address] [place] [address] Jan, [place] [address] [address] [place] [id number] [address] [place] [address] Jan, Major depressive disorder, r ecurrent episode, in partial or unspecified remission 296.35 and Anxiety state, unspecified 300.[address] [id number][place] [id number] Jan, [place] [address] [address] [facility] [id number] [address] [place] [address] Jan, Depression, major, recurrent , moderate 296.32 [place] [address] [address] [place] [id number] [address] [place] [address] Jan, Major depression, recurrent 296.30 ; No condition on [place] II V71.09 and No condition on axis III V71.09 [facility] [address] [id number][place] [id number] Jan, Drug-induced nausea and vomiting 787.01 [place] [id number] [address] [place] [address] Jan, Depression, major, recurrent , moderate 296.32 [place] [id number] [address] [place] [address] Dec, Depression, major, recurrent , moderate 296.32 [facility] [address] [id number][place] [id number] Dec, Morbid obesity 278.01 ; Metabolic syndro me 277.7 ; Hyperlipemia 272.4 ; Benign essential hypertension 401.1 ; Dietary counseling V65.3 ; Exercise counseling V65.41 and Inflamed skin tag 701.[id number] [place] [address] Dec, Depression, major, recurrent , moderate 296.32 [place] [id number] [address] [place] [address] Dec, [place] [id number] [address] [place] [address] Dec, Major depression, recurrent 296.30 ; Anxiety, generalized 300.02 and No condition on [place] II V71.09 [place] [address] [address] [place] [id number] [address] [place] [address] Dec, Depression, major, recurrent , moderate 296.32 [place] [id number] [address] [place] [address] Dec, Major depressive disorder, r ecurrent episode, moderate 296.32 [place] [id number] [address] [place] [address] Dec, Depression, major, recurrent , moderate 296.32 [place] [address] [address] Dec, Depression, major, recurrent , moderate 296.32 [place] [address] [address] Dec, Depression, major, recurrent , moderate 296.32 [place] [address] [address] Dec, Depression, major, recurrent , moderate 296.32 [place] [address] [address] Nov, Depression, major, recurrent , moderate 296.[address] [address] Nov, Major depression 296.20 ; So cial phobia 300.23 and No condition on [place] II V71.[address] [address] Nov, Depression, major, recurrent , moderate 296.32 [place] [address] [address] Nov, Major depressive disorder, r ecurrent episode, moderate 296.32 and Generalized anxiety disorder 300.02 [place] [address] [address] [place] [id number] [address] [place] [address] Nov, Depression, major, recurrent , moderate 296.32 [place] [address] [address] [place] [id number] [address] [place] [address] Nov, Depression, major, recurrent , moderate 296.32 [place] [address] [address] October, Generalized anxiety disorder 300.02 ; No condition on [place] II V71.09 and Major depressive disorder, recurrent 296.30 [place] [address] [address] [place] [id number] [address] [place] [address] Sep, [place] [address] [address] 13 Sep, 2014 [facility] [address] [id number] [address] [place] [address], [place] [address] 24 Aug, 2014 [facility] [address] [id number] [address] [place] [address], [place] [address] 24 Aug, 2014 [facility] [address] [id number] [address] [place] [address], [place] [address] 23 Aug, 2014 [facility] [address] [id number] [address] [place] [address], [place] [address] 23 Aug, 2014 [facility] [address] [id number] [address] [place] [address], [place] [address] 20 Aug, 2014 [facility] [address] [id number] [address] [place] [address], [place] [address] 20 Aug, 2014 [facility] [address] [id number] [address] [place] [address], [place] [address] 20 Aug, 2014 [facility] [address] [id number] [address] [place] [address], [place] [address] 20 Aug, 2014 [facility] [address] [id number] [address] [place] [address], [place] [address] 13 Aug, 2014 [facility] [address] [id number] [address] [place] [address], [place] [address] 13 Aug, 2014 [facility] [address] [id number] [address] [place] [address], [place] [address] 13 Aug, 2014 [facility] [address] [id number] [address] [place] [address], [place] [address] 13 Aug, 2014 [facility] [address] [id number] [address] [place] [address], [place] [address] 12 Aug, 2014 [facility] [address] [id number] [address] [place] [address], [place] [address] 12 Aug, 2014 [facility] [address] [id number] [address] [place] [address], [place] [address] 10 Aug, 2014 [facility] [address] [id number] [address] [place] [address], [place] [address] Aug, [facility] [address] [id number] [address] [place] [address], [place] [address] Aug, [facility] [address] [id number] [address] [place] [address], [place] [address] Aug, [facility] [address] [id number] [address] [place] [address], [place] [address] Jul, [facility] [address] [id number] [address] [place] [address], [place] [address] Jul, 2014 [facility] [address] [id number] [address] [place] [address], [place] [address] Jul, [facility] [address] [id number] [address] [place] [address], [place] [address] Jul, [facility] [address] [id number] [address] [place] [address], [place] [address] Jul, [facility] [address] [id number] [address] [place] [address], [place] [address] Jul, [facility] [address] [id number] [address] [place] [address], [place] [address] Jun, [facility] [address] [id number] [address] [place] [address], [place] [address] Jun, [facility] [address] [id number] [address] [place] [address], [place] [address] Jun, [facility] [address] [id number] [address] [place] [address], [place] [address] Jun, [facility] [address] [id number] [address] [place] [address], [place] [address] Jun, [facility] [address] [id number] [address] [place] [address], [place] [address] Jun, [facility] [address] [id number] [address] [place] [address] Jun, [facility] [address] [id number] [address] [place] [address] Jun, [facility] [address] [id number] [address] [place] [address] Jun, [facility] [address] [id number] [address] [place] [address] Jun, [facility] [address] [id number] [address] [place] [address] Jun, [facility] [address] [id number] [address] [place] [address] Jun, [facility] [address] [id number] [place] [id number] Jun, [facility] [address] [id number] [address] [place] [address] Jun, [facility] [address] [id number] [address] [place] [address] Jun, [facility] [address] [id number] [address] [place] [address] Jun, [facility] [address] [id number] [address] [place] [address] May, [facility] [address] [id number] [address] [place] [address] May, [facility] [address] [id number] [address] [place] [address] May, [facility] [address] [id number] [address] [place] [address], [place] [address] May, [facility] [address] [id number] [address] [place] [address], [place] [address] Apr, [facility] [address] [id number] [address] [place] [address], [place] [address] Apr, [facility] [address] [id number] [address] [place] [address], [place] [address] Apr, [facility] [address] [id number] [address] [place] [address], [place] [address] Apr, [facility] [address] [id number] [address] [place] [address], [place] [address] Apr, [facility] [address] [id number] [address] [place] [address], [place] [address] Apr, [facility] [address] [id number] [address] [place] [address], [place] [address] Apr, [facility] [address] [id number] [address] [place] [address], [place] [address] Apr, [facility] [address] [id number] [address] [place] [address], [place] [address] Apr, [facility] [address] [id number] [address] [place] [address], [place] [address] Apr, [facility] [address] [id number] [address] [place] [address], [place] [address] Apr, [facility] [address] [id number] [address] [place] [address], [place] [address] Apr, [facility] [address] [id number] [address] [place] [address], [place] [address] Apr, [facility] [address] [id number] [address] [place] [address], [place] [address] Apr, [facility] [address] [id number] [address] [place] [address], [place] [address] Apr, [facility] [address] [id number] [address] [place] [address], [place] [address] Apr, [facility] [address] [id number] [address] [place] [address], [place] [address] Apr, [facility] [address] [id number] [address] [place] [address], [place] [address] Apr, [facility] [address] [id number] [address] [place] [address], [place] [address] Apr, [facility] [address] [id number] [address] [place] [address], [place] [address] Apr, [facility] [address] [id number] [address] [place] [address], [place] [address] Mar, [facility] [address] [id number] [address] [place] [address], [place] [address] Mar, [facility] [address] [id number] [address] [place] [address], [place] [address] Mar, [facility] [address] [id number] [address] [place] [address], [place] [address] Mar, [facility] [address] [id number] [address] [place] [address], [place] [address] Mar, [facility] [address] [id number] [address] [place] [address], [place] [address] Mar, [facility] [address] [id number] [address] [place] [address], [place] [address] Mar, [facility] [address] [id number] [address] [place] [address], [place] [address] Mar, [facility] [address] [id number] [address] [place] [address], [place] [address] Mar, [facility] [address] [id number] [address] [place] [address], [place] [address] Mar, [facility] [address] [id number] [address] [place] [address], [place] [address] Feb, [facility] [address] [id number] [address] [place] [address], [place] [address] Feb, [facility] [address] [id number] [address] [place] [address], [place] [address] Feb, [facility] [address] [id number] [address] [place] [address], [place] [address] Feb, [facility] [address] [id number] [facility] [place] [address] Jan, [facility] [address] [id number] [address] [place] [address], [place] [address] Jan, [facility] [address] [id number] [address] [place] [address], [place] [address] Jan, [facility] [address] [id number] [address] [place] [address], [place] [address] Jan, [facility] [address] [id number] [address] [place] [address], [place] [address] Jan, [facility] [address] [id number] [address] [place] [address], [place] [address] Jan, [facility] [address] [id number] [address] [place] [address], [place] [address] Dec, [facility] [address] [id number] [address] [place] [address], [place] [address] Dec, [facility] [address] [id number] [address] [place] [address], [place] [address] Nov, [facility] [address] [id number] [address] [place] [address], [place] [address] Nov, [facility] [address] [id number] [address] [place] [address], [place] [address] Nov, [facility] [address] [id number] [address] [place] [address], [place] [address] Nov, [facility] [address] [id number] [address] [place] [address], [place] [address] Nov, [facility] [address] [id number] [address] [place] [address], [place] [address] Nov, [facility] [address] [id number] [address] [place] [address], [place] [address] Sep, [facility] [address] [id number] [address] [place] [address], [place] [address] Sep, [facility] [address] [id number] [address] [place] [address], [place] [address] Sep, [facility] [address] [id number] [address] [place] [address], [place] [address] Sep, [facility] [address] [id number] [address] [place] [address], [place] [address] Aug, [facility] [address] [id number] [address] [place] [address], [place] [address] Aug, [facility] [address] [id number] [address] [place] [address], [place] [address] Jul, [facility] [address] [id number] [address] [place] [address], [place] [address] Jul, [facility] [address] [id number] [address] [place] [address], [place] [address] Jun, [facility] [address] [id number] [address] [place] [address], [place] [address] Jun, [facility] [address] [id number] [address] [place] [address], [place] [address] Jun, [facility] [address] [id number] [address] [place] [address], [place] [address] Jun, [facility] [address] [id number] [address] [place] [address], [place] [address] May, [facility] [address] [id number] [address] [place] [address], [place] [address] May, [facility] [address] [id number] [address] [place] [address], [place] [address] May, [facility] [address] [id number] [address] [place] [address], [place] [address] May, [facility] [address] [id number] [address] [place] [address], [place] [address] May, [facility] [address] [id number] [address] [place] [address], [place] [address] May, [facility] [address] [id number] [address] [place] [address], [place] [address] Apr, [facility] [address] [id number] [address] [place] [address], [place] [address] Apr, [facility] [address] [id number] [address] [place] [address], [place] [address] Apr, [facility] [address] [id number] [address] [place] [address], [place] [address] Apr, [facility] [address] [id number] [address] [place] [address], [place] [address] Mar, [facility] [address] [id number] [address] [place] [address], [place] [address] Mar, [facility] [address] [id number] [address] [place] [address], [place] [address] Mar, [facility] [address] [id number] [address] [place] [address], [place] [address] Mar, [facility] [address] [id number] [address] [place] [address] Feb, [facility] [address] [address] [id number] [place] [id number] Jan, [facility] [address] [id number] [address] [place] [address] Jan, [facility] [address] [id number] [address] [place] [address], [place] [address] Dec, [facility] [address] [id number] [address] [place] [address], [place] [phone] Dec, [facility] [address] [id number] [address] [place] [phone] Dec, [facility] [address] [id number] [id number] Dec, 2012 [facility] [address] [id number] [address] [place] [phone] Nov, [facility] [address] [id number] [address] [place] [phone] Nov, [facility] [address] [id number] [address] [place] [phone] Nov, [facility] [address] [id number] [address] [place] [phone] Nov, [facility] [address] [id number] [address] [place] [phone] Nov, [facility] [address] [id number] [address] [place] [phone] October, [facility] [address] [id number] [address] [place] [phone] October, [facility] [address] [id number] [address] [place] [phone] Aug, [facility] [address] [id number] [address] [place] [phone] Nov, IMMUNIZATIONS No Known Immunizations SOCIAL HISTORY Never Assessed REASON FOR VISIT Blood pressure bferrisma PLAN OF CARE Activity Details Follow Up prn,, 3 Months Reason:BP/[place] ght VITAL SIGNS Height 71.5 in 2017-10-23 Weight 353.0 lbs 2017-10-23 Temperature 97.8 degrees Fahrenheit 2017-10-23 Heart Rate 62 bpm 2017-10-23 Respiratory Rate 18 2017-10-23 Oximetry 96 % 2017-10-23 BMI 48.54 kg/m2 2017-10-23 Blood pressure systolic 141 mmHg 2017-10-23 Blood pressure diastolic 84 mmHg 2017-10-23 MEDICATIONS Medication Instructions Dosage Frequency Start Date End Date Duration Bassam tariq BusPIRone HCl 10 mg Orally 3 times a day 1 tablet 8h 13 Apr, 2017 Active Viibryd 40 mg Orally Once a day 1 tablet with food 24h 11 May, 2017 Active Ketoconazole 2 % Externally Once a day 1 application to affected area 24 h Active Trazodone HCl 50 mg Orally Once a day- bedtime 1 tablet 13 Nov, 2016 Active Montelukast Sodium 10 MG TAKE 1 TABLET BY MOUTH ONCE DAILY 90 Active Vitamin D-3 1000 UNIT Orally Once a day 2 capsule 24h Active Omeprazole 40 mg Orally Once a day 1 tablet 24h 45 d ays Active Flovent HFA 110 mcg/act inhalation once per day 1-3 Puffs 1 time pe r day October, 0 Active Lasix 20 mg Orally Once a day as needed for swelling 1 tablet Jul, Active Lamictal 100 mg Orally 2 times a day 1 tablet 12h Jun, Active Lisinopril 40 mg 1 tablet Once a day Orally Active Centrum - Active Flonase 50 mcg/act nasally once per day 1 spray (50 mcg) in each nostril by intranasal route 2 times per day Nov, Active Ibuprofen 200 mg Orally PRN 1 tablet with food or milk as needed Active Cetirizine HCl 10 mg Orally Once a day 1 tablet 24h Active Atenolol 100 mg 1 tablet Once a day Orally Active Zofran 8 MG Orally Once a day 1 tablet 24h A ctive Baclofen 10 mg Orally Three times a [...] 03/2016 Hospitalization History gastric sleeve Hospitalization History [facility] ER Trouble with left shoulder blade 08/2017
--- OUTSIDE RECORDS SUMMARY | 2019-11-29 09:29 | XMS REPORT ---
Author Author Curt DIAZ [facility] Address [address] [place] [address] Care Team Providers Care Entry Level Financial Analyst Name Role Phone JOE CHRIS Unavailable PROBLEMS Type Condition ICD9-CM Code TUX87-XY Code Onset Dates Condition S tatus SNOMED Code Problem Metabolic syndrome E88.81 Active 2 54373485 Problem Severe episode of recurrent major depressive disorder, without psychotic features F33.2 Active 18413830 Problem Anxiety F41.9 Active 49812999 Problem Depressive disorder, not elsewhere classified F32. 9 Active 33867183 Problem Sciatica, right side M54.31 Active [id number] Problem Mixed obsessional thoughts and acts F42.2 Active 99977106 Problem Vitamin D deficiency E55.9 Active 74706958 Problem DANIELA (generalized anxiety disorder) F41.1 Active 63639636 Problem BMI 45.0-49.9, adult Z68.42 Active 411270464 Problem Hyperlipemia E78.5 Active 5104137 4 Problem Major depression F32.9 Active 370 166663 Problem Insomnia G47.00 Active 252519472 Problem Renal insufficiency N28.9 Active 234265091 Problem Edema R60.9 Active 125239185 Problem Morbid obesity E66.01 Active 18447 6002 Problem Callus of foot L84 Active 70983 1005 Problem Benign essential hypertension I10 Active 4886779 Problem Recurrent major depressive disorder, in partial remission F33.41 Active 82432546 ALLERGIES No Information ENCOUNTERS Encounter Location Date Diagnosis [facility] [address] [facility] [id number] [place] [address] Jan, [facility] [address] [facility] [address] [id number], [place] [id number] Jan, [facility] [address] [facility] [id number][place] [id number] Jan, Benign essential hypertension I10 ; BMI 45.0-49.9, adult Z68.42 ; Metabolic syndrome E88.81 and Allergic rhinitis, unspecified seasonality, unspecified trigger J30.9 [facility] [address] [facility] [id number] [address] [place] [address] Dec, DANIELA (generalized anxiety dis order) F41.1 and Depressive disorder, not elsewhere classified F32.9 [facility] [address] [id number] [place] [id number] Dec, Recurrent major depressive disorder, in partial remission F33.41 [facility] [address] [id number] [email or web address] [id number] Dec, [facility] [address] [id number], [place] [id number] Nov, [facility]rowdStreet[facility] [address] [id number], [place] [id number] Nov, Recurrent major depressive disorder, in partial remission F33.41 [facility] [address] [facility] [id number] [address] [place] [phone] Nov, Recurrent major depressive d isorder, in partial remission F33.41 ; Mixed obsessional thoughts and acts F42.2 ; DANIELA (generalized anxiety disorder) F41.1 and BMI 45.0-49.9, adult Z68.42 [facility] [address] [id number], [place] [id number] Nov, [facility] [address] [id number] [email or web address] [id number] Nov, Other conjunctivitis of both eyes H10.89 and Sciatica, right side M54.31 [facility] [address] [id number] [email or web address] [id number] Nov, [facility] [address] [id number] [place] [id number] Nov, [facility] [address] [id number] [email or web address] [id number] October, [facility] [address] [id number], [place] [id number] October, [facility] [address] [facility] [id number] [address] [place] [id number] October, BMI 45.0-49.9, adult Z68.42 ; Mixed obsessional thoughts and acts F42.2 ; Recurrent major depressive disorder, in partial remission F33.41 and DANIELA (generalized anxiety disorder) F41.1 [facility] [email or web address] [id number], [place] [id number] October, Benign essential hypertension I10 ; Morb id obesity E66.01 and BMI 45.0-49.9, adult Z68.42 [facility] [email or web address] [id number], [place] [id number] Sep, [facility] [address] [id number], [place] [id number] Sep, [facility] [address] [id number], [place] [id number] Sep, [facility] [address] [id number], [place] [id number] Sep, Hospital discharge follow-up Z09 ; Aller gic rhinitis, unspecified seasonality, unspecified trigger J30.9 and Shortness of breath R06.02 [facility] [address] [id number], [place] [id number] Sep, Recurrent major depressive disorder, in partial remission F33.41 [facility] [email or web address] [id number], [place] [id number] Aug, Irritable mood R45.4 [facility] [address] [facility] [id number] [address] [place] [address] Aug, [facility] [email or web address] [id number], [place] [id number] Jul, Benign essential hypertension I10 ; Robert a R60.9 and Impacted cerumen of left ear H61.22 [facility] [address] [facility] [id number] [address] [place] [phone] 14 Jul, 2017 Major depression F32.9 ; Rec urrent major depressive disorder, in partial remission F33.41 and Anxiety F41.9 [place] [address] [facility] [id number] [address] [place] [address] Jun, Major depression F32.9 ; Rec urrent major depressive disorder, in partial remission F33.41 and Anxiety F41.[address] [facility] [address] [id number], [place] [id number] Jun, Major depression F32.9 ; Morbid obesity E66.01 ; Irritable mood R45.4 ; Hand weakness R29.898 and Vitamin D deficiency E55.[address] [place] [id number] [place] [address] [id number] Jun, [facility] [id number] [place] [address] [id number] May, Major depression F32.9 [place] [address] [facility] [id number] [address] [place] [address] May, Major depression F32.[address] [facility] [id number] [place] [address] [id number] May, BMI 50.0-59.9, adult Z68.43 ; Major depr ession F32.9 ; Anxiety F41.9 ; Hypertrophic toenail L60.2 and Pain of left great toe M79.[address] [facility] [address] [id number], [place] [id number] May, Recurrent major depressive disorder, in partial remission F33.41 [place] [address] [facility] [id number] [address] [place] [address] Apr, [place] [address] [id number], [place] [id number] Apr, [place] [address] [facility] [id number] [address] [place] [address] Apr, Major depression F32.9 [facility] [address] [id number], [place] [id number] Apr, Severe episode of recurrent major depres sive disorder, without psychotic features F33.2 ; Anxiety F41.9 and Insomnia G47.00 [facility] [address] [id number], [place] [id number] Apr, [facility] [address] [facility] [id number] [address] [place] [address] Apr, [facility] [id number] [place] [address] [id number] Apr, [facility] [address] [id number], [place] [id number] Mar, [facility] [id number] [place] [address] [id number] Mar, Allergic conjunctivitis of both eyes H10 .13 [facility] [address] [facility] [id number] [address] [place] [address] Mar, Major depression F32.9 [facility] [address] [id number], [place] [id number] Mar, Metabolic syndrome E88.81 ; History of g astric bypass Z98.890 ; Benign essential hypertension I10 and Allergic conjunctivitis of both eyes H10.13 [facility] [address] [facility] [id number] [address] [place] [address] Mar, Major depression F32.9 [facility] [address] [id number], [place] [id number] Feb, [facility] [address] [facility] [id number] [address] [place] [phone] Feb, Major depression F32.9 [facility] [id number] [place] [address] [id number] Feb, Subacute maxillary sinusitis J01.00 and Bronchitis J40 [facility] [address] [facility] [id number] [address] [place] [phone] Feb, Major depressive disorder, r ecurrent, moderate F33.1 [facility] [address] [id number], [place] [id number] Jan, [facility] [place] [address] [facility] [address] [id number], [place] [id number] Jan, Acute non-recurrent maxillary sinusitis J01.00 and Skin tag L91.8 [facility] [place] [address] [facility] [address] [id number], [place] [id number] Jan, Cough R05 and Sinus congestion R09.81 [facility] [place] [address] [facility] [address] [id number], [place] [id number] Jan, [facility] [address] [id number], [place] [id number] Jan, Benign essential hypertension I10 ; Hist ory of gastric bypass Z98.890 and Nausea and vomiting in adult R11.2 [facility] [address] [facility] [id number] [address] [place] [phone] Jan, Major depressive disorder, r ecurrent, moderate F33.1 [facility] [address] [facility] [id number] [address] [place] [id number] Dec, Insomnia G47.00 ; Recurrent major depressive disorder, in partial remission F33.41 and Morbid obesity E66.01 [facility] [address] [id number], [place] [id number] Dec, [facility] [address] [id number], [place] [id number] Dec, Chronic bacterial conjunctivitis of left eye H10.402 [facility] [address] [id number], [place] [id number] Nov, [facility] [place] [address] [facility] [address] [id number], [place] [id number] Nov, Dental examination Z01.20 [place] [address] [facility] [address] [id number], [place] [id number] 23 Nov, 2016 Benign essential hypertension I10 ; Hist ory of gastric bypass Z98.890 and Nausea and vomiting in adult R11.2 [place] [address] [facility] [id number] [address] [place] [phone] 13 Nov, 2016 Major depressive disorder, r ecurrent, moderate F33.1 ; Generalized anxiety disorder F41.1 and Insomnia due to other mental disorder F51.05 [place] [address] [facility] [id number] [address] [place] [id number] 12 Nov, 2016 Recurrent major depressive d isorder, in partial remission F33.41 ; Insomnia G47.00 and Morbid obesity E66.01 [facility] [address] [id number] [place] [id number] October, Abscess of left arm L02.[address] [id number] [address] [place] [id number] October, Morbid obesity E66.01 ; Lida r depression F32.9 and Recurrent major depressive disorder, in partial remission F33.[address] [id number], [place] [id number] Sep, Benign essential hypertension I10 ; Morb id obesity E66.01 ; S/P gastric bypass Z98.84 ; Abscess L02.91 and Chronic bacterial conjunctivitis of left eye H10.[address] [id number], [place] [id number] Sep, Dental examination Z01.20 [place] [address] [facility] [id number] [address] [place] [phone] Sep, Morbid obesity E66.01 ; Lida r depression F32.9 and Recurrent major depressive disorder, in partial remission F33.41 [place] [address] [facility] [id number] [address] [place] [address] Jul, [place] [address] [facility] [id number] [address] [place] [phone] Jul, Major depressive disorder, r ecurrent, moderate F33.1 [place] [address] [place] [id number] [address] [place] [phone] Jul, Major depressive disorder, r ecurrent, moderate F33.1 and Generalized anxiety disorder F41.[address] [place] [id number] [place] [address] [id number] Jul, Cough R05 [place] [address] [place] [id number] [address] [place] [address] Jul, Morbid obesity E66.01 ; Lida r depression F32.9 and Recurrent major depressive disorder, in partial remission F33.[address] [place] [id number] [place] [address] [id number] Jul, [place] [id number] [place] [address] [id number] Jul, [place] [id number] [place] [address] [id number] Jul, Gastroenteritis K52.9 and Cough R[address] [id number] [place] [address] [id number] Jun, Acute bacterial conjunctivitis of left e ye H10.32 [place] [address] [place] [id number] [address] [place] [id number] Jun, [place] [address] [place] [id number] [address] [place] [phone] Jun, Recurrent major depressive d isorder, in partial remission F33.41 [place] [address] [place] [id number] [address] [place] [address] May, Major depression F32.9 and M orbid obesity E66.01 [place] [address] [place] [id number] [address] [place] [phone] May, [place] [id number] [place] [address] [id number] May, Thrush B37.0 [place] [address] [facility] [id number] [address] [place] [phone] 15 Apr, 2016 Major depressive disorder, r ecurrent, moderate F33.1 [place] [address] [facility] [id number] [address] [place] [id number] 15 Apr, 2016 Insomnia G47.00 ; Major depr ession F32.9 and Recurrent major depressive disorder, in partial remission F33.41 [place] [address] [facility] [id number] [address] [place] [phone] Apr, [place] [address] [facility] [id number] [address] [place] [phone] 02 Apr, 2016 Major depression F32.9 and R ecurrent major depressive disorder, in partial remission F33.[address] [place] [address] [id number], [place] [id number] Mar, Benign essential hypertension I10 ; Morb id obesity E66.01 ; Impacted cerumen of both ears H61.23 ; Laceration of finger of right hand, initial encounter S61.219A and Encounter for immunization Z23 [place] [address] [facility] [id number] [address] [place] [id number] 17 Mar, 2016 [place] [address] [facility] [id number] [address] [place] [phone] Mar, [place] [address] [facility] [id number] [address] [place] [phone] Mar, [place] [id number] [place] [address] [id number] 29 Feb, 2016 Nausea R11.0 ; Blood in the stool K92.1 and Benign essential hypertension I10 [facility] [address] [facility] [id number] [address] [place] [phone] Feb, Major depression F32.9 and R ecurrent major depressive disorder, in partial remission F33.[address] [place] [id number] [place] [address] [place] [id number] Feb, [facility] [address] [id number], [place] [id number] Feb, Recurrent major depressive disorder, in partial remission F33.41 [facility] [address] [id number], [place] [id number] Jan, [facility] [address] [id number], [place] [id number] Jan, Benign essential hypertension I10 ; Robert a R60.9 and Hyperlipidemia, unspecified hyperlipidemia type E78.5 [facility] [address] [id number], [place] [id number] Jan, Recurrent major depressive disorder, in partial remission F33.41 [facility] [place] [address] [id number] [place] [id number] Jan, [facility] [address] [id number], [place] [id number] Jan, [facility] [address] [id number], [place] [id number] Jan, [facility] [address] [facility] [id number] [address] [place] [phone] Jan, [facility] [address] [facility] [id number] [address] [place] [phone] Dec, [facility] [address] [facility] [id number] [address] [place] [phone] Nov, [facility] [address] [facility] [id number] [address] [place] [phone] Nov, Major depression F32.9 [facility] [address] [facility] [id number] [address] [place] [phone] Nov, [facility] [address] [facility] [id number] [address] [place] [id number] Nov, [facility] [address] [facility] [id number] [address] [place] [phone] Nov, Major depressive disorder, r ecurrent episode, mild F33.0 and Anxiety F41.[id number] [place] [address] [id number] Nov, [address] [id number] [place] [address] [id number] October, Left elbow pain M25.522 and Other season al allergic rhinitis J30.[address] [id number] [place] [address] [id number] October, [place] [address] [facility] [id number] [address] [place] [phone] October, Major depressive disorder, r ecurrent, moderate F33.1 [place] [address] [facility] [id number] [address] [place] [phone] October, Major depression F32.9 [place] [address] [facility] [id number] [address] [place] [phone] Sep, [place] or callus L84 and Onych omycosis B35.1 [place] [address] [facility] [id number] [address] [place] [phone] Sep, Major depressive disorder, r ecurrent, moderate F33.1 [place] [address] [facility] [id number] [address] [place] [phone] Sep, Major depression F32.9 [place] [address] [facility] [id number] [address] [place] [phone] Sep, Moderate episode of recurren t major depressive disorder F33.[id number] [place] [address] [id number] Sep, Muscle strain T14.8 [facility] [address] [facility] [id number] [address] [place] [phone] Aug, Major depression F32.9 [place] [address] [facility] [id number] [address] [place] [phone] Aug, Major depression F32.9 [facility] [address] [facility] [id number] [address] [place] [id number] Jul, Morbid obesity E66.01 and Ma cora depression F32.9 [facility] [address] [facility] [id number] [address] [place] [phone] Jul, Depression, major, recurrent , moderate F33.[address] [id number] [place] [address] [id number] Jul, [facility] [address] [facility] [id number] [address] [place] [id number] Jul, [facility] [address] [place] [id number] [place] [id number] Jul, Major depression F32.9 and M orbid obesity E66.[address] [id number], [place] [id number] Jul, Type II diabetes mellitus E11.9 ; Callus of foot L84 ; Benign essential hypertension I10 and Renal insufficiency N28.9 [facility] [address] [place] [id number] [address] [place] [phone] Jul, Depression, major, recurrent , moderate F33.1 [facility] [id number] [place] [phone] Jul, Major depression F32.9 [facility] [address] [place] [id number] [address] [place] [phone] Jul, [facility] [address] [facility] [id number] [address] [place] [phone] Jun, Major depression F32.9 [facility] [address] [place] [id number] [address] [place] [id number] Jun, Major depressive disorder, r ecurrent, moderate F33.1 [facility] [address] [place] [id number] [address] [place] [phone] Jun, [place] [address] [facility] [id number] [address] [place] [phone] Jun, Major depressive disorder, r ecurrent, moderate F33.1 and Major depression F32.[address] [id number] [place] [address] [id number] Jun, Type II diabetes mellitus E11.9 [place] [address] [place] [id number] [address] [place] [id number] Jun, Depression, major, recurrent , moderate F33.1 [place] [address] [address] [facility] [id number] [address] [place] [id number] May, Major depressive disorder, r ecurrent, moderate F33.1 [place] [address] [address] [place] [id number] [address] [place] [id number] May, [address] [id number] [place] [address] [id number] May, Edema R60.9 [place] [address] [address] [place] [id number] [address] [place] [id number] May, Insomnia G47.00 and Major de pression F32.[address] [id number] [place] [address] [id number] May, 2015 Morbid obesity E66.01 ; Edema R60.9 ; Sh ortness of breath R06.02 ; Benign essential hypertension I10 and Renal insufficiency N28.[id number] [place] [address] [id number] 14 May, 2015 Hyperlipemia 272.4 and Renal insufficien cy N28.9 [place] [address] [id number] [place] [phone] Apr, Major depression F32.9 [place] [address] [address] [place] [id number] [address] [place] [id number] Apr, [place] [address] [address] [place] [id number] [address] [place] [id number] Apr, Major depressive disorder, r ecurrent, moderate F33.[address] [facility] [address] [id number] [id number] Apr, Type II diabetes mellitus E11.9 ; Benign essential hypertension I10 ; Edema R60.9 and Renal insufficiency N28.9 [place] [address] [address] [facility] [id number] [address] [place] [id number] Mar, Major depressive disorder, r ecurrent, moderate F33.1 [place] [address] [address] [facility] [id number] [address] [place] [address] Mar, [place] [address] [address] [facility] [id number] [address] [place] [id number] Mar, Major depression F32.[address] [id number] [id number] Mar, Morbid obesity E66.01 ; Benign essential hypertension I10 and Type II diabetes mellitus E11.9 [place] [address] [address] [facility] [id number] [address] [place] [address] Feb, Major depressive disorder, r ecurrent, moderate F33.1 [place] [address] [address] [facility] [id number] [address] [place] [address] Feb, Major depressive disorder, r ecurrent episode, in partial or unspecified remission 296.35 ; Anxiety state, unspecified 300.00 and Morbid obesity 278.01 [place] [address] [address] [facility] [id number] [address] [place] [address] Feb, [facility] [address] [id number] [id number] 16 Feb, 2015 Vomiting 787.03 and Viral syndrome 079.9 9 [place] [address] [address] [facility] [id number] [address] [place] [id number] 15 Feb, 2015 Major depression, recurrent 296.30 ; Generalized anxiety disorder 300.02 and No condition on [place] II V71.[address] [facility] [address] [id number][place] [id number] Feb, Skin tag 701.9 [facility] [address] [facility] [id number] [address] [place] [id number] Feb, [facility] [address] [facility] [id number] [address] [place] [address] Jan, Depression, major, recurrent , moderate 296.32 [facility] [address] [facility] [id number][place] [id number] Jan, Nausea and vomiting 787.01 ; Rib pain on right side 786.50 and Fall on or from sidewalk curb E880.1 [facility] [address] [facility] [id number] [address] [place] [address] Jan, [facility] [address] [place] [id number] [address] [place] [id number] Jan, Major depressive disorder, r ecurrent episode, in partial or unspecified remission 296.35 and Anxiety state, unspecified 300.00 [facility] [address] [facility] [id number][place] [id number] Jan, [facility] [address] [facility] [id number] [address] [place] [id number] Jan, Depression, major, recurrent , moderate 296.32 [facility] [address] [facility] [id number] [address] [place] [address] Jan, Major depression, recurrent 296.30 ; No condition on [place] II V71.09 and No condition on axis III V71.09 [facility] [address] [place] [address] [id number], [place] [id number] Jan, Drug-induced nausea and vomiting 787.01 [facility] [address] [place] [id number] [address] [place] [address] Jan, Depression, major, recurrent , moderate 296.32 [facility] [address] [place] [id number] [address] [place] [address] Dec, Depression, major, recurrent , moderate 296.32 [facility] T[facility] [address] [facility] [id number] [place] [id number] Dec, Morbid obesity 278.01 ; Metabolic syndro me 277.7 ; Hyperlipemia 272.4 ; Benign essential hypertension 401.1 ; Dietary counseling V65.3 ; Exercise counseling V65.41 and Inflamed skin tag 701.[address] [address] Dec, Depression, major, recurrent , moderate 296.[address] [address] Dec, [address] [address] Dec, Major depression, recurrent 296.30 ; Anxiety, generalized 300.02 and No condition on [place] II V71.[address] [address] Dec, Depression, major, recurrent , moderate 296.[address] [address] Dec, Major depressive disorder, r ecurrent episode, moderate 296.32 [place] [id number] [address] [place] [address] Dec, Depression, major, recurrent , moderate 296.32 [place] [id number] [address] [place] [address] Dec, Depression, major, recurrent , moderate 296.[address] [address] Dec, Depression, major, recurrent , moderate 296.[address] [address] Dec, Depression, major, recurrent , moderate 296.[address] [address] 17 Nov, 2014 Depression, major, recurrent , moderate 296.32 [facility] [address] [facility] [id number] [address] [place] [address] 16 Nov, 2014 Major depression 296.20 ; So cial phobia 300.23 and No condition on [place] II V71.09 [facility] [address] [place] [id number] [address] [place] [address] 16 Nov, 2014 Depression, major, recurrent , moderate 296.32 [facility] [address] [place] [id number] [address] [place] [address] 09 Nov, 2014 Major depressive disorder, r ecurrent episode, moderate 296.32 and Generalized anxiety disorder 300.02 [facility] [address] [place] [id number] [place] [address] 09 Nov, 2014 Depression, major, recurrent , moderate 296.32 [facility] [address] [place] [id number] [place] [address] 04 Nov, 2014 Depression, major, recurrent , moderate 296.32 [facility] [address] [place] [id number] [address] [place] [address] October, Generalized anxiety disorder 300.02 ; No condition on [place] II V71.09 and Major depressive disorder, recurrent 296.30 [facility] [address] [place] [id number] [address] [place] [id number] 14 Sep, 2014 [facility] [address] [place] [id number] [address] [place] [address] Sep, [facility] [address] [place] [id number] [address] [place] [id number] 24 Aug, 2014 [facility] [address] [place] [id number] [address] [place] [address] Aug, [facility] [address] [place] [id number] [address] [place] [address] Aug, [facility] [address] [place] [id number] [address] [place] [id number] Aug, [facility] [address] [id number] [facility] [place] [address] Aug, [facility] [address] [id number] [address] [place] [address], [place] [address] Aug, [facility] [address] [id number] [address] [place] [address], [place] [address] Aug, [facility] [address] [id number] [address] [place] [address], [place] [address] Aug, [facility] [address] [id number] [address] [place] [address], [place] [address] Aug, [facility] [address] [id number] [address] [place] [address], [place] [address] Aug, [facility] [address] [id number] [address] [place] [address], [place] [address] Aug, [facility] [address] [id number] [address] [place] [address], [place] [address] Aug, [facility] [address] [id number] [address] [place] [address], [place] [address] Aug, [facility] [address] [id number] [address] [place] [address], [place] [address] Aug, [facility] [address] [id number] [address] [place] [address], [place] [address] Aug, [facility] [address] [id number] [address] [place] [address], [place] [address] Aug, [facility] [address] [id number] [address] [place] [address], [place] [address] Aug, [facility] [address] [id number] [address] [place] [address], [place] [address] Aug, [facility] [address] [id number] [address] [place] [address], [place] [id number] 24 Jul, 2014 [facility] [address] [id number] [address] [place] [address], [place] [address] Jul, [facility] [address] [id number] [address] [place] [address], [place] [address] Jul, [facility] [address] [id number] [address] [place] [address], [place] [address] Jul, [facility] [address] [id number] [address] [place] [address], [place] [address] Jul, [facility] [address] [id number] [address] [place] [address], [place] [address] Jul, [facility] [address] [id number] [address] [place] [address], [place] [address] Jun, [facility] [address] [id number] [address] [place] [address], [place] [address] Jun, [facility] [address] [id number] [address] [place] [address], [place] [address] Jun, [facility] [address] [id number] [address] [place] [id number] Jun, [facility] [address] [id number] [address] [place] [address], [place] [address] Jun, [facility] [address] [id number] [address] [place] [address], [place] [address] Jun, [facility] [address] [id number] [address] [place] [address], [place] [address] Jun, [facility] [address] [id number] [address] [place] [id number] Jun, [facility] [address] [id number] [address] [place] [address] Jun, [facility] [address] [id number] [address] [place] [id number] Jun, [facility] [address] [id number] [address] [place] [address] Jun, [facility] [address] [id number] [address] [place] [address], [place] [address] Jun, [facility] [address] [id number] [place] [id number] Jun, [facility] [address] [id number] [address] [place] [address], [place] [address] Jun, [facility] [address] [id number] [address] [place] [address], [place] [address] Jun, [facility] [address] [id number] [address] [place] [address], [place] [address] Jun, [facility] [address] [id number] [address] [place] [address], [place] [address] May, [facility] [address] [id number] [address] [place] [address], [place] [address] May, [facility] [address] [id number] [address] [place] [address], [place] [address] May, [facility] [address] [id number] [address] [place] [address], [place] [address] May, [facility] [address] [id number] [address] [place] [address], [place] [address] Apr, [facility] [address] [id number] [address] [place] [address], [place] [address] Apr, [facility] [address] [id number] [address] [place] [address], [place] [address] Apr, [facility] [address] [id number] [address] [place] [address], [place] [address] Apr, [facility] [address] [id number] [address] [place] [address], [place] [address] Apr, [facility] [address] [id number] [address] [place] [address], [place] [address] Apr, [facility] [address] [id number] [address] [place] [address], [place] [address] Apr, [facility] [address] [id number] [address] [place] [address], [place] [address] Apr, [facility] [address] [id number] [address] [place] [address], [place] [address] Apr, [facility] [address] [id number] [address] [place] [address], [place] [address] Apr, [facility] [address] [id number] [address] [place] [address], [place] [address] Apr, [facility] [address] [id number] [address] [place] [address], [place] [address] Apr, [facility] [address] [id number] [address] [place] [address], [place] [address] Apr, [facility] [address] [id number] [address] [place] [address], [place] [address] Apr, [facility] [address] [id number] [address] [place] [address], [place] [address] Apr, [facility] [address] [id number] [address] [place] [address], [place] [address] Apr, [facility] [address] [id number] [address] [place] [address], [place] [address] Apr, [facility] [address] [id number] [address] [place] [address], [place] [address] Apr, [facility] [address] [id number] [address] [place] [id number] Apr, [facility] [address] [id number] [address] [place] [address], [place] [address] Apr, [facility] [address] [id number] [address] [place] [address], [place] [address] Mar, [facility] [address] [id number] [address] [place] [address], [place] [address] Mar, [facility] [address] [id number] [address] [place] [address], [place] [address] Mar, [facility] [address] [id number] [address] [place] [address], [place] [address] Mar, [facility] [address] [id number] [address] [place] [address], [place] [address] Mar, [facility] [address] [id number] [address] [place] [address], [place] [address] Mar, [facility] [address] [id number] [address] [place] [address], [place] [address] Mar, [facility] [address] [id number] [address] [place] [address], [place] [address] Mar, [facility] [address] [id number] [address] [place] [address], [place] [address] Mar, [facility] [address] [id number] [address] [place] [address], [place] [address] Mar, [facility] [address] [id number] [address] [place] [address], [place] [address] Feb, [facility] [address] [id number] [address] [place] [address], [place] [address] Feb, [facility] [address] [id number] [address] [place] [address], [place] [address] Feb, [facility] [address] [id number] [address] [place] [address], [place] [id number] Feb, [facility] [address] [id number] [address] [place] [address], [place] [address] Jan, [facility] [address] [id number] [address] [place] [address], [place] [address] Jan, [facility] [address] [id number] [address] [place] [address], [place] [address] Jan, [facility] [address] [id number] [address] [place] [address], [place] [address] Jan, [facility] [address] [id number] [facility] [place] [address] Jan, [facility] [address] [id number] [facility] [place] [address] Jan, [facility] [address] [id number] [facility] [place] [address] Dec, [facility] [address] [id number] [address] [place] [address], [place] [address] Dec, [facility] [address] [id number] [address] [place] [address], [place] [address] Nov, [facility] [address] [id number] [address] [place] [address], [place] [address] Nov, [facility] [address] [id number] [address] [place] [address], [place] [address] Nov, [facility] [address] [id number] [address] [place] [address], [place] [address] Nov, [facility] [address] [id number] [address] [place] [address], [place] [address] Nov, [facility] [address] [id number] [address] [place] [address], [place] [address] Nov, [facility] [address] [id number] [address] [place] [address], [place] [address] Sep, [facility] [address] [id number] [address] [place] [address], [place] [address] Sep, [facility] [address] [id number] [address] [place] [address], [place] [address] Sep, [facility] [address] [id number] [address] [place] [address], [place] [address] Sep, [facility] [address] [id number] [address] [place] [address], [place] [address] Aug, [facility] [address] [id number] [address] [place] [address], [place] [address] Aug, [facility] [address] [id number] [address] [place] [address], [place] [address] Jul, [facility] [address] [id number] [address] [place] [address], [place] [address] Jul, [facility] [address] [id number] [address] [place] [address], [place] [address] Jun, [facility] [address] [id number] [address] [place] [address], [place] [address] Jun, [facility] [address] [id number] [address] [place] [address], [place] [address] Jun, [facility] [address] [id number] [address] [place] [address], [place] [address] Jun, [facility] [address] [id number] [address] [place] [address], [place] [address] May, [facility] [address] [id number] [address] [place] [address], [place] [address] May, [facility] [address] [id number] [address] [place] [address], [place] [address] May, [facility] [address] [id number] [address] [place] [address], [place] [address] May, [facility] [address] [id number] [address] [place] [address], [place] [address] May, [facility] [address] [id number] [address] [place] [address], [place] [address] May, [facility] [address] [id number] [address] [place] [address], [place] [address] Apr, [facility] [address] [id number] [address] [place] [address], [place] [address] Apr, [facility] [address] [id number] [address] [place] [address], [place] [address] Apr, [facility] [address] [id number] [address] [place] [address], [place] [address] Apr, [facility] [address] [id number] [address] [place] [address], [place] [address] Mar, [facility] [address] [id number] [address] [place] [address], [place] [address] Mar, [facility] [address] [id number] [address] [place] [address], [place] [address] Mar, [facility] [address] [id number] [address] [place] [address], [place] [address] Mar, [facility] [address] [id number] [address] [place] [address], [place] [id number] Feb, [facility] [address] [id number] [place] [id number] Jan, [facility] [address] [id number] [address] [place] [address], [place] [id number] Jan, [facility] [address] [id number] [address] [place] [address], [place] [id number] Dec, [facility] [address] [id number] [address] [place] [address], [place] [id number] Dec, [facility] [address] [id number] [address] [place] [address], [place] [phone] Dec, [facility] [address] [facility] [address] [id number] [place] [id number] Dec, [facility] [address] [id number] [address] [place] [address], [place] [id number] Nov, [facility] [address] [id number] [address] [place] [address], [place] [id number] 14 Nov, 2012 [facility] [address] [id number] [address] [place] [address], [place] [id number] Nov, [facility] [address] [id number] [address] [place] [address], [place] [id number] Nov, [facility] [address] [facility] [id number] [address] [place] [id number] Nov, [facility] [address] [facility] [id number] [address] [place] [id number] October, [facility] [address] [facility] [id number] [address] [place] [id number] October, [facility] [address] [facility] [id number] [address] [place] [id number] Aug, [facility] [address] [facility] [id number] [address] [place] [id number] Nov, IMMUNIZATIONS No Known Immunizations SOCIAL HISTORY Never Assessed REASON FOR VISIT requests return call PLAN OF CARE VITAL SIGNS MEDICATIONS Medication Instructions Dosage Frequency Start Date End Date Duration S chandni Baclofen 10 mg Orally Three times a [...] 03/2016 Hospitalization History gastric sleeve Hospitalization History [facility] Trouble with left shoulder blade 08/2017
--- OUTSIDE RECORDS SUMMARY | 2019-11-29 09:30 | XMS REPORT ---
Author Author Curt DIAZ [facility] Address [address] [place] [address] Care Team Providers Care Natural Science Curator Name Role Phone JOE CHRIS Unavailable PROBLEMS Type Condition ICD9-CM Code COV50-VN Code Onset Dates Condition S tatus SNOMED Code Problem Metabolic syndrome E88.81 Active 2 01467453 Problem Severe episode of recurrent major depressive disorder, without psychotic features F33.2 Active 56665595 Problem Anxiety F41.9 Active 28577996 Problem Depressive disorder, not elsewhere classified F32. 9 Active 30206116 Problem Insomnia G47.00 Active 761751323 Problem Sciatica, right side M54.31 Active [id number] Problem Mixed obsessional thoughts and acts F42.2 Active 05787572 Problem Vitamin D deficiency E55.9 Active 78891940 Problem DANIELA (generalized anxiety disorder) F41.1 Active 86130036 Problem BMI 45.0-49.9, adult Z68.42 Active 545377181 Problem Morbid obesity E66.01 Active 32269 6002 Problem Type II diabetes mellitus E11.9 Acti ve 85614146 Problem Hyperlipemia E78.5 Active 8550361 4 Problem Major depression F32.9 Active 370 952459 Problem Edema R60.9 Active 773767708 Problem Callus of foot L84 Active 65003 1005 Problem Benign essential hypertension I10 Active 6072961 Problem Recurrent major depressive disorder, in partial remission F33.41 Active 11068866 Problem Renal insufficiency N28.9 Active 370427596 Problem Acute bacterial conjunctivitis of left eye H10.32 Active 105971638 ALLERGIES No Information ENCOUNTERS Encounter Location Date Diagnosis [facility] [address] [facility] [id number] [address] [place] [phone] Jan, [facility] [address] [facility] [id number] [address] [place] [phone] Jan, [facility] [address] [id number], [place] [id number] Jan, [facility] [address] [facility] [id number] [address] [place] [phone] Dec, DANIELA (generalized anxiety dis order) F41.1 and Depressive disorder, not elsewhere classified F32.[address] [facility] [address] [id number], [place] [id number] Dec, Recurrent major depressive disorder, in partial remission F33.[address] [facility] [address] [id number], [place] [id number] Dec, [facility] [address] [id number], [place] [id number] Nov, [facility] [address] [id number], [place] [id number] Nov, Recurrent major depressive disorder, in partial remission F33.41 [facility] [address] [facility] [id number] [address] [place] [phone] Nov, Recurrent major depressive d isorder, in partial remission F33.41 ; Mixed obsessional thoughts and acts F42.2 ; DANIELA (generalized anxiety disorder) F41.1 and BMI 45.0-49.9, adult Z68.[address] [facility] [address] [id number], [place] [id number] Nov, [facility] [address] [id number], [place] [id number] Nov, Other conjunctivitis of both eyes H10.89 and Sciatica, right side M54.[address] [facility] [address] [id number] [place] [id number] Nov, [facility] [address] [id number], [place] [id number] Nov, [facility] [address] [id number], [place] [id number] October, [facility] [address] [id number], [place] [id number] October, [facility] [address] [place] [id number] [address] [place] [phone] October, BMI 45.0-49.9, adult Z68.42 ; Mixed obsessional thoughts and acts F42.2 ; Recurrent major depressive disorder, in partial remission F33.41 and DANIELA (generalized anxiety disorder) F41.1 [facility] [address] [id number], [place] [id number] October, Benign essential hypertension I10 ; Morb id obesity E66.01 and BMI 45.0-49.9, adult Z68.42 [facility] [address] [id number], [place] [id number] Sep, [facility] [id number], [place] [id number] Sep, [facility] [id number], [place] [id number] Sep, [facility] [id number], [place] [id number] Sep, Hospital discharge follow-up Z09 ; Aller gic rhinitis, unspecified seasonality, unspecified trigger J30.9 and Shortness of breath R06.02 [facility] [employer] [place] [address] AVE [id number], [place] [id number] Sep, Recurrent major depressive disorder, in partial remission F33.41 [facility] [address] [id number], [place] [id number] Aug, Irritable mood R45.4 [facility] [address] [facility] [id number] [address] [place] [phone] Aug, [facility] [address] [id number], [place] [id number] Jul, Benign essential hypertension I10 ; Robert a R60.9 and Impacted cerumen of left ear H61.22 [facility] [address] [place] [id number] [address] [place] [phone] 14 Jul, 2017 Major depression F32.9 ; Rec urrent major depressive disorder, in partial remission F33.41 and Anxiety F41.9 [place] [address] [facility] [id number] [address] [place] [phone] Jun, Major depression F32.9 ; Rec urrent major depressive disorder, in partial remission F33.41 and Anxiety F41.9 [facility] [address] [id number], [place] [id number] Jun, Major depression F32.9 ; Morbid obesity E66.01 ; Irritable mood R45.4 ; Hand weakness R29.898 and Vitamin D deficiency E55.9 [facility] [id number] [place] [id number] Jun, [place] [id number] [place] [address] [id number] May, Major depression F32.9 [place] [address] [facility] [id number] [address] [place] [phone] May, Major depression F32.9 [facility] [id number] [place] [address] [id number] May, BMI 50.0-59.9, adult Z68.43 ; Major depr ession F32.9 ; Anxiety F41.9 ; Hypertrophic toenail L60.2 and Pain of left great toe M79.[address] [place] [id number] [place] [address] [id number] May, Recurrent major depressive disorder, in partial remission F33.41 [place] [address] [facility] [id number] [address] [place] [phone] Apr, [facility] [id number] [place] [address] [id number] Apr, [place] [address] [facility] [id number] [address] [place] [phone] Apr, Major depression F32.9 [facility] [address] [id number], [place] [id number] Apr, Severe episode of recurrent major depres sive disorder, without psychotic features F33.2 ; Anxiety F41.9 and Insomnia G47.00 [facility] [address] [id number], [place] [id number] Apr, [facility] [address] [place] [phone] Apr, [facility] [address] [id number], [place] [id number] Apr, [facility] [address] [id number], [place] [id number] Mar, [facility] [address] [id number], [place] [id number] Mar, Allergic conjunctivitis of both eyes H10 .13 [facility] [address] [place] [id number] [address] [place] [phone] Mar, Major depression F32.9 [facility] [address] [id number], [place] [id number] Mar, Metabolic syndrome E88.81 ; History of g astric bypass Z98.890 ; Benign essential hypertension I10 and Allergic conjunctivitis of both eyes H10.13 [facility] [address] [place] [id number] [address] [place] [phone] Mar, Major depression F32.9 [facility] [address] [id number], [place] [id number] Feb, [facility] [address] [place] [id number] [address] [place] [phone] Feb, Major depression F32.9 [facility] [address] [id number], [place] [id number] Feb, Subacute maxillary sinusitis J01.00 and Bronchitis J40 [facility] [address] [place] [phone] Feb, Major depressive disorder, r ecurrent, moderate F33.1 [facility] [address] [id number], [place] [id number] Jan, [facility] [address] [id number], [place] [id number] Jan, Acute non-recurrent maxillary sinusitis J01.00 and Skin tag L91.8 [facility] [address] [id number], [place] [id number] Jan, Cough R05 and Sinus congestion R09.[address] [facility] [address] [id number], [place] [id number] Jan, [facility] [address] [facility] [address] [id number], [place] [id number] Jan, Benign essential hypertension I10 ; Hist ory of gastric bypass Z98.890 and Nausea and vomiting in adult R11.2 [place] [address] [facility] [id number] [address] [place] [phone] Jan, Major depressive disorder, r ecurrent, moderate F33.1 [place] [address] [facility] [id number] [address] [place] [phone] Dec, Insomnia G47.00 ; Recurrent major depressive disorder, in partial remission F33.41 and Morbid obesity E66.01 [facility] [address] [id number], [place] [id number] Dec, [facility] [address] [id number], [place] [id number] Dec, Chronic bacterial conjunctivitis of left eye H10.402 [facility] [address] [id number], [place] [id number] Nov, [facility] [address] [id number], [place] [id number] Nov, Dental examination Z01.[address] [facility] [address] [id number], [place] [id number] Nov, Benign essential hypertension I10 ; Hist ory of gastric bypass Z98.890 and Nausea and vomiting in adult R11.2 [place] [address] [place] [id number] [address] [place] [phone] Nov, Major depressive disorder, r ecurrent, moderate F33.1 ; Generalized anxiety disorder F41.1 and Insomnia due to other mental disorder F51.05 [place] [address] [place] [id number] [address] [place] [phone] Nov, Recurrent major depressive d isorder, in partial remission F33.41 ; Insomnia G47.00 and Morbid obesity E66.01 [facility] [address] [id number] [id number] October, Abscess of left arm L02.414 [place] [id number] [address] [place] [phone] October, Morbid obesity E66.01 ; Lida r depression F32.9 and Recurrent major depressive disorder, in partial remission F33.41 [place] [address] [facility] [id number] [place] [address] [id number] Sep, Benign essential hypertension I10 ; Morb id obesity E66.01 ; S/P gastric bypass Z98.84 ; Abscess L02.91 and Chronic bacterial conjunctivitis of left eye H10.[id number] [place] [address] [id number] Sep, Dental examination Z01.[address] [id number] [address] [place] [phone] Sep, Morbid obesity E66.01 ; Lida r depression F32.9 and Recurrent major depressive disorder, in partial remission F33.41 [place] [address] [place] [id number] [address] [place] [phone] Jul, [place] [id number] [address] [place] [phone] Jul, Major depressive disorder, r ecurrent, moderate F33.1 [place] [address] [facility] [id number] [address] [place] [phone] Jul, Major depressive disorder, r ecurrent, moderate F33.1 and Generalized anxiety disorder F41.[address] [place] [id number] [place] [address] [id number] Jul, Cough R05 [place] [address] [facility] [id number] [address] [place] [phone] Jul, Morbid obesity E66.01 ; Lida r depression F32.9 and Recurrent major depressive disorder, in partial remission F33.[address] [place] [id number] [place] [address] [id number] Jul, [place] [id number] [place] [address] [id number] Jul, [place] [id number] [place] [address] [id number] Jul, Gastroenteritis K52.9 and Cough R05 [address] [id number] [place] [address] [id number] Jun, Acute bacterial conjunctivitis of left e ye H10.32 [place] [address] [place] [id number] [address] [place] [phone] Jun, [place] [address] [place] [id number] [address] [place] [phone] Jun, Recurrent major depressive d isorder, in partial remission F33.41 [place] [address] [facility] [id number] [address] [place] [phone] May, Major depression F32.9 and M orbid obesity E66.01 [place] [address] [place] [id number] [address] [place] [phone] May, [place] [address] [id number] [place] [address] [id number] May, Thrush B37.0 [facility] [address] [facility] [id number] [address] [place] [phone] Apr, Major depressive disorder, r ecurrent, moderate F33.1 [facility] [address] [facility] [id number] [address] [place] [phone] Apr, Insomnia G47.00 ; Major depr ession F32.9 and Recurrent major depressive disorder, in partial remission F33.41 [facility] [address] [facility] [id number] [address] [place] [phone] Apr, [place] [address] [facility] [id number] [address] [place] [phone] Apr, Major depression F32.9 and R ecurrent major depressive disorder, in partial remission F33.41 [facility] [address] [id number], [place] [id number] Mar, Benign essential hypertension I10 ; Morb id obesity E66.01 ; Impacted cerumen of both ears H61.23 ; Laceration of finger of right hand, initial encounter S61.219A and Encounter for immunization Z23 [facility] [address] [facility] [id number] [address] [place] [phone] Mar, [place] [address] [facility] [id number] [address] [place] [phone] Mar, [place] [address] [facility] [id number] [address] [place] [phone] Mar, [facility] [address] [id number], [place] [id number] Feb, Nausea R11.0 ; Blood in the stool K92.1 and Benign essential hypertension I10 [facility] [address] [facility] [id number] [address] [place] [phone] Feb, Major depression F32.9 and R ecurrent major depressive disorder, in partial remission F33.41 [facility] [address] [id number], [place] [id number] Feb, [facility] [address] [id number], [place] [id number] Feb, Recurrent major depressive disorder, in partial remission F33.41 [facility] [address] [id number], [place] [id number] Jan, [facility] [address] [id number], [place] [id number] Jan, Benign essential hypertension I10 ; Robert a R60.9 and Hyperlipidemia, unspecified hyperlipidemia type E78.5 [facility] [address] [id number], [place] [id number] Jan, Recurrent major depressive disorder, in partial remission F33.41 [facility] [address] [id number] [place] [id number] Jan, [facility] [address] [id number], [place] [id number] Jan, [facility] [address] [id number], [place] [id number] Jan, [facility] [address] [facility] [id number] [address] [place] [phone] Jan, [facility] [address] [facility] [id number] [address] [place] [phone] Dec, [facility] [address] [facility] [id number] [address] [place] [phone] Nov, [facility] [address] [facility] [id number] [address] [place] [phone] Nov, Major depression F32.9 [facility] [address] [facility] [id number] [address] [place] [phone] Nov, [facility] [address] [facility] [id number] [address] [place] [phone] Nov, [facility] [address] [facility] [id number] [address] [place] [phone] Nov, Major depressive disorder, r ecurrent episode, mild F33.0 and Anxiety F41.9 [place] [address] [facility] [address] [id number], [place] [id number] Nov, [id number] [place] [address] [id number] October, Left elbow pain M25.522 and Other season al allergic rhinitis J30.[id number] [place] [address] [id number] October, [facility] [address] [facility] [id number] [address] [place] [phone] October, Major depressive disorder, r ecurrent, moderate F33.1 [place] [address] [facility] [id number] [address] [place] [phone] October, Major depression F32.9 [place] [address] [place] [id number] [address] [place] [phone] Sep, [place] or callus L84 and Onych omycosis B35.1 [place] [address] [facility] [id number] [address] [place] [phone] Sep, Major depressive disorder, r ecurrent, moderate F33.1 [facility] [address] [facility] [id number] [address] [place] [phone] Sep, Major depression F32.9 [place] [address] [facility] [id number] [address] [place] [phone] Sep, Moderate episode of recurren t major depressive disorder F33.[address] [id number], [place] [id number] Sep, Muscle strain T14.8 [facility] [address] [facility] [id number] [address] [place] [phone] Aug, Major depression F32.9 [facility] [address] [facility] [id number] [address] [place] [phone] Aug, Major depression F32.9 [facility] [address] [facility] [id number] [address] [place] [phone] 24 Jul, 2015 Morbid obesity E66.01 and Ma cora depression F32.9 [facility] [address] [facility] [id number] [address] [place] [phone] 24 Jul, 2015 Depression, major, recurrent , moderate F33.[address] [id number], [place] [id number] Jul, [facility] [address] [facility] [id number] [address] [place] [phone] Jul, [facility] [address] [facility] [id number] [place] [phone] 16 Jul, 2015 Major depression F32.9 and M orbid obesity E66.[id number] [place] [address] [id number] 11 Jul, 2015 Type II diabetes mellitus E11.9 ; Callus of foot L84 ; Benign essential hypertension I10 and Renal insufficiency N28.9 [facility] [address] [facility] [id number] [address] [place] [phone] 09 Jul, 2015 Depression, major, recurrent , moderate F33.1 [facility] [address] [facility] [id number] [address] [place] [phone] 05 Jul, 2015 Major depression F32.9 [facility] [address] [place] [id number] [address] [place] [phone] Jul, [facility] [address] [facility] [id number] [address] [place] [phone] Jun, Major depression F32.9 [facility] [address] [facility] [id number] [address] [place] [phone] Jun, Major depressive disorder, r ecurrent, moderate F33.1 [facility] [address] [place] [id number] [address] [place] [phone] Jun, [facility] [address] [facility] [id number] [address] [place] [phone] 08 Jun, 2015 Major depressive disorder, r ecurrent, moderate F33.1 and Major depression F32.[address] [id number], [place] [id number] Jun, Type II diabetes mellitus E11.9 [place] [address] [facility] [id number] [address] [place] [phone] Jun, Depression, major, recurrent , moderate F33.1 [place] [address] [facility] [id number] [address] [place] [phone] May, Major depressive disorder, r ecurrent, moderate F33.1 [place] [address] [address] [place] [id number] [address] [place] [phone] May, [id number] [place] [id number] May, Edema R60.9 [place] [id number] [address] [place] [phone] May, Insomnia G47.00 and Major de pression F32.[address] [id number] [place] [id number] May, 2015 Morbid obesity E66.01 ; Edema R60.9 ; Sh ortness of breath R06.02 ; Benign essential hypertension I10 and Renal insufficiency N28.[address] [id number] [place] [id number] May, Hyperlipemia 272.4 and Renal insufficien cy N28.9 [place] [address] [address] [place] [id number] [address] [place] [phone] Apr, Major depression F32.9 [place] [address] [address] [place] [id number] [address] [place] [phone] Apr, [place] [address] [address] [place] [id number] [address] [place] [id number] Apr, Major depressive disorder, r ecurrent, moderate F33.1 [facility] [address] [id number] [id number] Apr, Type II diabetes mellitus E11.9 ; Benign essential hypertension I10 ; Edema R60.9 and Renal insufficiency N28.9 [place] [address] [address] [facility] [id number] [address] [place] [phone] Mar, Major depressive disorder, r ecurrent, moderate F33.1 [place] [address] [address] [facility] [id number] [address] [place] [phone] Mar, [place] [address] [address] [facility] [id number] [address] [place] [phone] Mar, Major depression F32.[address] [id number] [id number] Mar, Morbid obesity E66.01 ; Benign essential hypertension I10 and Type II diabetes mellitus E11.9 [place] [address] [address] [place] [id number] [address] [place] [place] [address] Feb, Major depressive disorder, r ecurrent, moderate F33.1 [place] [address] [facility] [id number] [address] [place] [id number] Feb, Major depressive disorder, r ecurrent episode, in partial or unspecified remission 296.35 ; Anxiety state, unspecified 300.00 and Morbid obesity 278.01 [place] [address] [facility] [id number] [address] [place] [address] Feb, [place] [address] [id number] [id number] Feb, Vomiting 787.03 and Viral syndrome 079.[address] [id number] [address] [place] [address] 15 Feb, 2015 Major depression, recurrent 296.30 ; Generalized anxiety disorder 300.02 and No condition on Gustine II V71.09 [facility] [address] [id number] [id number] Feb, Skin tag 701.9 [facility] [address] [facility] [id number] [address] [place] [address] Feb, [facility] [address] [facility] [id number] [address] [place] [address] Jan, Depression, major, recurrent , moderate 296.32 [facility] [address] [facility] [id number] [place] [id number] Jan, Nausea and vomiting 787.01 ; Rib pain on right side 786.50 and Fall on or from sidewalk curb E880.1 [facility] [address] [facility] [id number] [address] [place] [address] Jan, [facility] [address] [place] [id number] [address] [place] [address] Jan, Major depressive disorder, r ecurrent episode, in partial or unspecified remission 296.35 and Anxiety state, unspecified 300.00 [facility] [address] [facility] [id number] [place] [id number] Jan, [facility] [address] [facility] [id number] [address] [place] [address] Jan, Depression, major, recurrent , moderate 296.32 [facility] [address] [place] [id number] [address] [place] [address] Jan, Major depression, recurrent 296.30 ; No condition on Gustine II V71.09 and No condition on axis III V71.09 [facility] [address] [facility] [id number] [place] [id number] Jan, Drug-induced nausea and vomiting 787.01 [facility] [address] [facility] [id number] [address] [place] [address] Jan, Depression, major, recurrent , moderate 296.32 [facility] [address] [facility] [id number] [address] [place] [address] Dec, Depression, major, recurrent , moderate 296.32 [place] [id number] [facility] [id number] [place] [id number] Dec, Morbid obesity 278.01 ; Metabolic syndro me 277.7 ; Hyperlipemia 272.4 ; Benign essential hypertension 401.1 ; Dietary counseling V65.3 ; Exercise counseling V65.41 and Inflamed skin tag 701.[address] [address] Dec, Depression, major, recurrent , moderate 296.[address] [address] Dec, [address] [address] Dec, Major depression, recurrent 296.30 ; Anxiety, generalized 300.02 and No condition on Gustine II V71.[address] [address] Dec, Depression, major, recurrent , moderate 296.[address] [address] Dec, Major depressive disorder, r ecurrent episode, moderate 296.32 [place] [id number] [address] [place] [address] Dec, Depression, major, recurrent , moderate 296.32 [place] [id number] [address] [place] [address] Dec, Depression, major, recurrent , moderate 296.32 [place] [id number] [address] [place] [address] Dec, Depression, major, recurrent , moderate 296.[address] [address] Dec, Depression, major, recurrent , moderate 296.32 [place] [id number] [address] [place] [address] Nov, Depression, major, recurrent , moderate 296.32 [facility] [address] [facility] [id number] [address] [place] [address] 16 Nov, 2014 Major depression 296.20 ; So cial phobia 300.23 and No condition on Gustine II V71.09 [facility] [address] [facility] [id number] [address] [place] [id number] 16 Nov, 2014 Depression, major, recurrent , moderate 296.32 [facility] [address] [facility] [id number] [address] [place] [id number] Nov, Major depressive disorder, r ecurrent episode, moderate 296.32 and Generalized anxiety disorder 300.02 [facility] [address] [place] [id number] [place] [id number] 09 Nov, 2014 Depression, major, recurrent , moderate 296.32 [facility] [address] [place] [id number] [address] [place] [id number] Nov, Depression, major, recurrent , moderate 296.32 [facility] [address] [place] [id number] [address] [place] [id number] October, Generalized anxiety disorder 300.02 ; No condition on Gustine II V71.09 and Major depressive disorder, recurrent 296.30 [facility] [address] [place] [id number] [address] [place] [id number] 14 Sep, 2014 [facility] [address] [place] [id number] [address] [place] [id number] Sep, [facility] [address] [place] [id number] [address] [place] [id number] 24 Aug, 2014 [facility] [address] [place] [id number] [address] [place] [id number] Aug, [facility] [address] [place] [id number] [address] [place] [phone] Aug, [facility] [address] [place] [id number] [address] [place] [id number] Aug, [facility] [address] [id number] [facility] [place] [address] 20 Aug, 2014 [facility] [address] [id number] [address] [place] [address], [place] [address] 20 Aug, 2014 [facility] [address] [id number] [address] [place] [address], [place] [address] 20 Aug, 2014 [facility] [address] [id number] [address] [place] [address], [place] [address] 20 Aug, 2014 [facility] [address] [id number] [address] [place] [address], [place] [address] 13 Aug, 2014 [facility] [address] [id number] [address] [place] [address], [place] [address] 13 Aug, 2014 [facility] [address] [id number] [address] [place] [address], [place] [address] 13 Aug, 2014 [facility] [address] [id number] [address] [place] [address], [place] [address] 13 Aug, 2014 [facility] [address] [id number] [address] [place] [address], [place] [address] 12 Aug, 2014 [facility] [address] [id number] [address] [place] [address], [place] [address] 12 Aug, 2014 [facility] [address] [id number] [address] [place] [address], [place] [address] 10 Aug, 2014 [facility] [address] [id number] [address] [place] [address], [place] [address] 10 Aug, 2014 [facility] [address] [id number] [address] [place] [address], [place] [address] Aug, [facility] [address] [id number] [address] [place] [address], [place] [address] Aug, [facility] [address] [id number] [address] [place] [address], [place] [address] 24 Jul, 2014 [facility] [address] [id number] [address] [place] [address], [place] [address] Jul, [facility] [address] [id number] [address] [place] [address], [place] [address] Jul, [facility] [address] [id number] [address] [place] [address], [place] [address] Jul, [facility] [address] [id number] [address] [place] [address], [place] [address] Jul, [facility] [address] [id number] [address] [place] [address], [place] [address] Jul, [facility] [address] [id number] [address] [place] [address], [place] [address] Jun, [facility] [address] [id number] [address] [place] [address], [place] [address] Jun, [facility] [address] [id number] [address] [place] [address], [place] [address] Jun, [facility] [address] [id number] [address] [place] [address], [place] [address] Jun, [facility] [address] [id number] [address] [place] [address], [place] [address] Jun, [facility] [address] [id number] [address] [place] [address], [place] [address] Jun, [facility] [address] [id number] [address] [place] [address], [place] [address] Jun, [facility] [address] [id number] [address] [place] [address], [place] [address] Jun, [facility] [address] [id number] [address] [place] [address], [place] [address] Jun, [facility] [address] [id number] [address] [place] [address], [place] [address] Jun, [facility] [address] [id number] [address] [place] [address], [place] [address] Jun, [facility] [address] [id number] [address] [place] [address], [place] [address] Jun, [facility] [address] [id number] FNANYKiesha S [id number] Jun, [facility] [address] [id number] [address] [place] [address] Jun, [facility] [address] [id number] [address] [place] [address], [place] [address] Jun, [facility] [address] [id number] [address] [place] [address], [place] [address] Jun, [facility] [address] [id number] [address] [place] [address], [place] [address] May, [facility] [address] [id number] [address] [place] [address], [place] [address] May, [facility] [address] [id number] [address] [place] [address] May, [facility] [address] [id number] [address] [place] [address], [place] [address] May, [facility] [address] [id number] [address] [place] [address], [place] [address] Apr, [facility] [address] [id number] [address] [place] [address], [place] [address] Apr, [facility] [address] [id number] [address] [place] [address], [place] [address] Apr, [facility] [address] [id number] [address] [place] [id number] Apr, [facility] [address] [id number] [address] [place] [address] Apr, [facility] [address] [id number] [address] [place] [address], [place] [address] Apr, [facility] [address] [id number] [address] [place] [address], [place] [address] Apr, [facility] [address] [id number] [address] [place] [address], [place] [address] Apr, [facility] [address] [id number] [address] [place] [address], [place] [address] Apr, [facility] [address] [id number] [address] [place] [address], [place] [address] Apr, [facility] [address] [id number] [address] [place] [address], [place] [address] Apr, [facility] [address] [id number] [address] [place] [address], [place] [address] Apr, [facility] [address] [id number] [address] [place] [address], [place] [address] Apr, [facility] [address] [id number] [address] [place] [address], [place] [address] Apr, [facility] [address] [id number] [address] [place] [address], [place] [address] Apr, [facility] [address] [id number] [address] [place] [address], [place] [address] Apr, [facility] [address] [id number] [address] [place] [address], [place] [address] Apr, [facility] [address] [id number] [address] [place] [address], [place] [address] Apr, [facility] [address] [id number] [address] [place] [address], [place] [address] Apr, [facility] [address] [id number] [address] [place] [address], [place] [address] Apr, [facility] [address] [id number] [address] [place] [address], [place] [address] Mar, [facility] [address] [id number] [address] [place] [address], [place] [address] Mar, [facility] [address] [id number] [address] [place] [address], [place] [address] Mar, [facility] [address] [id number] [address] [place] [address], [place] [address] Mar, [facility] [address] [id number] [address] [place] [address], [place] [address] Mar, [facility] [address] [id number] [address] [place] [address], [place] [address] Mar, [facility] [address] [id number] [address] [place] [address], [place] [address] Mar, [facility] [address] [id number] [address] [place] [address], [place] [address] Mar, [facility] [address] [id number] [address] [place] [address], [place] [address] Mar, [facility] [address] [id number] [address] [place] [address], [place] [address] Mar, [facility] [address] [id number] [address] [place] [address], [place] [address] Feb, [facility] [address] [id number] [address] [place] [address], [place] [address] Feb, [facility] [address] [id number] [address] [place] [address], [place] [address] Feb, [facility] [address] [id number] [address] [place] [address], [place] [address] Feb, [facility] [address] [id number] [address] [place] [address], [place] [address] Jan, [facility] [address] [id number] [address] [place] [address], [place] [address] Jan, [facility] [address] [id number] [address] [place] [address], [place] [address] Jan, [facility] [address] [id number] [address] [place] [address], [place] [address] Jan, [facility] [address] [id number] [facility] [place] [address] Jan, [facility] [address] [id number] [address] [place] [address], [place] [address] Jan, [facility] [address] [id number] [address] [place] [address], [place] [address] Dec, [facility] [address] [id number] [address] [place] [address], [place] [address] Dec, [facility] [address] [id number] [address] [place] [address], [place] [address] Nov, [facility] [address] [id number] [address] [place] [address], [place] [address] Nov, [facility] [address] [id number] [address] [place] [address], [place] [address] Nov, [facility] [address] [id number] [address] [place] [address], [place] [address] Nov, [facility] [address] [id number] [address] [place] [address], [place] [address] Nov, [facility] [address] [id number] [address] [place] [address], [place] [address] Nov, [facility] [address] [id number] [address] [place] [address], [place] [address] Sep, [facility] [address] [id number] [address] [place] [address], [place] [address] Sep, [facility] [address] [id number] [address] [place] [address], [place] [address] Sep, [facility] [address] [id number] [address] [place] [address], [place] [address] Sep, [facility] [address] [id number] [address] [place] [address], [place] [address] Aug, [facility] [address] [id number] [address] [place] [address], [place] [address] Aug, [facility] [address] [id number] [address] [place] [address], [place] [address] Jul, [facility] [address] [id number] [address] [place] [address], [place] [address] Jul, [facility] [address] [id number] [address] [place] [address], [place] [address] Jun, [facility] [address] [id number] [address] [place] [address], [place] [address] Jun, [facility] [address] [id number] [address] [place] [address], [place] [address] Jun, [facility] [address] [id number] [address] [place] [address], [place] [address] Jun, [facility] [address] [id number] [address] [place] [address], [place] [address] May, [facility] [address] [id number] [address] [place] [address], [place] [address] May, [facility] [address] [id number] [address] [place] [address], [place] [address] May, [facility] [address] [id number] [address] [place] [address], [place] [address] May, [facility] [address] [id number] [address] [place] [address], [place] [address] May, [facility] [address] [id number] [address] [place] [address], [place] [address] May, [facility] [address] [id number] [address] [place] [address], [place] [address] Apr, [facility] [address] [id number] [address] [place] [address], [place] [address] Apr, [facility] [address] [id number] [address] [place] [address], [place] [address] Apr, [facility] [address] [id number] [address] [place] [address] Apr, [facility] [address] [id number] [address] [place] [address], [place] [address] Mar, [facility] [address] [id number] [address] [place] [address] Mar, [facility] [address] [id number] [address] [place] [phone] Mar, [facility] [address] [id number] [address] [place] [id number] Mar, [facility] [address] [id number] [address] [place] [id number] Feb, [facility] [address] [id number] [place] [id number] Jan, [facility] [address] [id number] [address] [place] [id number] Jan, [facility] [address] [id number] [address] [place] [phone] Dec, [facility] [address] [id number] [address] [place] [phone] Dec, [facility] [address] [id number] [address] [place] [phone] Dec, [facility] [address] [id number] [place] [id number] Dec, [facility] [address] [id number] [address] [place] [phone] Nov, [facility] [address] [id number] [address] [place] [address], [place] [id number] 14 Nov, 2012 [facility] [address] [id number] [address] [place] [phone] Nov, [facility] [address] [id number] [address] [place] [id number] Nov, [facility] [address] [id number] [address] [place] [id number] 11 Nov, 2012 [facility] [address] [facility] [id number] [address] [place] [phone] October, [facility] [address] [facility] [id number] [address] [place] [phone] October, [facility] [address] [facility] [id number] [address] [place] [id number] Aug, [facility] [address] [facility] [id number] [address] [place] [id number] 13 Nov, 2011 IMMUNIZATIONS No Known Immunizations SOCIAL HISTORY Never Assessed REASON FOR VISIT Waiting for call back PLAN OF CARE VITAL SIGNS MEDICATIONS Medication [...] History Insomnia Medical History chronic renal insufficiency Surgical History EGD- Esophagus stretching- ANNMARIE 2014 Surgical History gastric sleeve 03/2016 Hospitalization History gastric sleeve Hospitalization History [facility] ER Trouble with left shoulder blade 08/2017
--- OUTSIDE RECORDS SUMMARY | 2019-11-29 09:30 | XMS REPORT ---
Author Author Curt DIAZ [facility] Address [address] [place] [address] Care Team Providers Care Research Mechanic Name Role Phone JOE CHRIS Unavailable PROBLEMS Type Condition ICD9-CM Code CWR69-SW Code Onset Dates Condition S tatus SNOMED Code Problem Metabolic syndrome E88.81 Active 2 61068906 Problem Severe episode of recurrent major depressive disorder, without psychotic features F33.2 Active 06298467 Problem Anxiety F41.9 Active 77980863 Problem Depressive disorder, not elsewhere classified F32. 9 Active 84314990 Problem Insomnia G47.00 Active 459122787 Problem Sciatica, right side M54.31 Active [id number] Problem Mixed obsessional thoughts and acts F42.2 Active 74545322 Problem Vitamin D deficiency E55.9 Active 48978997 Problem DANIELA (generalized anxiety disorder) F41.1 Active 07590832 Problem BMI 45.0-49.9, adult Z68.42 Active 922484901 Problem Morbid obesity E66.01 Active 86389 6002 Problem Type II diabetes mellitus E11.9 Acti ve 57804106 Problem Hyperlipemia E78.5 Active 5398276 4 Problem Major depression F32.9 Active 370 389488 Problem Edema R60.9 Active 023108197 Problem Callus of foot L84 Active 54234 1005 Problem Benign essential hypertension I10 Active 4327327 Problem Recurrent major depressive disorder, in partial remission F33.41 Active 16669214 Problem Renal insufficiency N28.9 Active 375019897 Problem Acute bacterial conjunctivitis of left eye H10.32 Active 264887088 ALLERGIES No Information ENCOUNTERS Encounter Location Date Diagnosis [facility] [address] [facility] [id number] [address] [place] [phone] Jan, [facility] [address] [facility] [id number] [address] [place] [phone] Jan, [facility] [address] [id number][place] [id number] Jan, [facility] [address] [facility] [id number] [address] [place] [phone] Dec, DANIELA (generalized anxiety dis order) F41.1 and Depressive disorder, not elsewhere classified F32.[address] [facility] [address] [id number], [place] [id number] Dec, Recurrent major depressive disorder, in partial remission F33.[address] [facility] [address] [id number], [place] [id number] Dec, [facility] [address] [id number], [place] [id number] Nov, [facility] [address] [id number], [place] [id number] Nov, Recurrent major depressive disorder, in partial remission F33.41 [facility] [address] [facility] [id number] [address] [place] [address] Nov, Recurrent major depressive d isorder, in partial remission F33.41 ; Mixed obsessional thoughts and acts F42.2 ; DANIELA (generalized anxiety disorder) F41.1 and BMI 45.0-49.9, adult Z68.[address] [facility] [address] [id number], [place] [id number] Nov, [facility] [address] [id number], [place] [id number] Nov, Other conjunctivitis of both eyes H10.89 and Sciatica, right side M54.[address] [facility] [address] [id number] [place] [id number] Nov, [facility] [address] [id number], [place] [id number] Nov, [facility] [address] [id number], [place] [id number] October, [facility] [address] [id number][place] [id number] October, [facility] [address] [place] [id number] [address] [place] [phone] October, BMI 45.0-49.9, adult Z68.42 ; Mixed obsessional thoughts and acts F42.2 ; Recurrent major depressive disorder, in partial remission F33.41 and DANIELA (generalized anxiety disorder) F41.1 [facility] [address] [id number], [place] [id number] October, Benign essential hypertension I10 ; Morb id obesity E66.01 and BMI 45.0-49.9, adult Z68.42 [facility] [address] [id number], [place] [id number] Sep, [facility] [address] [id number], [place] [id number] Sep, [facility] [address] [id number], [place] [id number] Sep, [facility] [address] [id number], [place] [id number] Sep, Hospital discharge follow-up Z09 ; Aller gic rhinitis, unspecified seasonality, unspecified trigger J30.9 and Shortness of breath R06.02 [facility] [address] [employer] [place] [address] AVE [id number], [place] [id number] Sep, Recurrent major depressive disorder, in partial remission F33.41 [facility] [address] [id number], [place] [id number] Aug, Irritable mood R45.4 [facility] [address] [facility] [id number] [address] [place] [phone] Aug, [facility] [address] [id number], [place] [id number] Jul, Benign essential hypertension I10 ; Robert a R60.9 and Impacted cerumen of left ear H61.22 [facility] [address] [place] [id number] [address] [place] [phone] 14 Jul, 2017 Major depression F32.9 ; Rec urrent major depressive disorder, in partial remission F33.41 and Anxiety F41.9 [place] [address] [facility] [id number] [address] [place] [phone] Jun, Major depression F32.9 ; Rec urrent major depressive disorder, in partial remission F33.[address] [facility] [address] [id number], [place] [id number] Jun, Major depression F32.9 ; Morbid obesity E66.01 ; Irritable mood R45.4 ; Hand weakness R29.898 and Vitamin D deficiency E55.9 [facility] [id number] [place] [address] [id number] Jun, [place] [id number] [place] [address] [id number] May, Major depression F32.9 [place] [address] [facility] [id number] [address] [place] [phone] May, Major depression F32.9 [facility] [id number] [place] [address] [id number] May, BMI 50.0-59.9, adult Z68.43 ; Major depr ession F32.9 ; Anxiety F41.9 ; Hypertrophic toenail L60.2 and Pain of left great toe M79.[address] [place] [id number] [place] [address] [id number] May, Recurrent major depressive disorder, in partial remission F33.41 [place] [address] [facility] [id number] [address] [place] [address] Apr, [facility] [id number] [place] [address] [id number] Apr, [place] [address] [facility] [id number] [address] [place] [address] Apr, Major depression F32.9 [facility] [address] [id number], [place] [id number] Apr, Severe episode of recurrent major depres sive disorder, without psychotic features F33.2 ; Anxiety F41.9 and Insomnia G47.00 [facility] [address] [id number], [place] [id number] Apr, [facility] [address] [place] [address] Apr, [facility] [address] [id number], [place] [id number] Apr, [facility] [address] [id number], [place] [id number] Mar, [facility] [address] [id number], [place] [id number] Mar, Allergic conjunctivitis of both eyes H10 .13 [facility] [address] [place] [id number] [address] [place] [address] Mar, Major depression F32.9 [facility] [address] [id number], [place] [id number] Mar, Metabolic syndrome E88.81 ; History of g astric bypass Z98.890 ; Benign essential hypertension I10 and Allergic conjunctivitis of both eyes H10.13 [facility] [address] [place] [id number] [address] [place] [phone] Mar, Major depression F32.9 [facility] [address] [id number], [place] [id number] Feb, [facility] [address] [place] [id number] [address] [place] [address] Feb, Major depression F32.9 [facility] [address] [id number], [place] [id number] Feb, Subacute maxillary sinusitis J01.00 and Bronchitis J40 [facility] [address] [place] [address] Feb, Major depressive disorder, r ecurrent, moderate F33.1 [facility] [address] [id number], [place] [id number] Jan, [facility] [address] [id number], [place] [id number] Jan, Acute non-recurrent maxillary sinusitis J01.00 and Skin tag L91.8 [facility] [address] [id number], [place] [id number] Jan, Cough R05 and Sinus congestion R09.[address] [facility] [address] [id number], [place] [id number] Jan, [facility] [address] [facility] [address] [id number], [place] [id number] Jan, Benign essential hypertension I10 ; Hist ory of gastric bypass Z98.890 and Nausea and vomiting in adult R11.2 [place] [address] [facility] [id number] [address] [place] [phone] Jan, Major depressive disorder, r ecurrent, moderate F33.1 [place] [address] [facility] [id number] [address] [place] [address] Dec, Insomnia G47.00 ; Recurrent major depressive disorder, in partial remission F33.41 and Morbid obesity E66.01 [facility] [address] [id number], [place] [id number] Dec, [facility] [address] [id number], [place] [id number] Dec, Chronic bacterial conjunctivitis of left eye H10.402 [facility] [address] [id number], [place] [id number] Nov, [facility] [address] [id number], [place] [id number] Nov, Dental examination Z01.[address] [facility] [address] [id number], [place] [id number] Nov, Benign essential hypertension I10 ; Hist ory of gastric bypass Z98.890 and Nausea and vomiting in adult R11.2 [place] [address] [place] [id number] [address] [place] [phone] Nov, Major depressive disorder, r ecurrent, moderate F33.1 ; Generalized anxiety disorder F41.1 and Insomnia due to other mental disorder F51.05 [place] [address] [place] [id number] [address] [place] [address] Nov, Recurrent major depressive d isorder, in partial remission F33.41 ; Insomnia G47.00 and Morbid obesity E66.01 [facility] [address] [id number] [id number] October, Abscess of left arm L02.414 [place] [id number] [address] [place] [address] October, Morbid obesity E66.01 ; Lida r depression F32.9 and Recurrent major depressive disorder, in partial remission F33.41 [place] [address] [facility] [id number] [place] [address] [id number] Sep, Benign essential hypertension I10 ; Morb id obesity E66.01 ; S/P gastric bypass Z98.84 ; Abscess L02.91 and Chronic bacterial conjunctivitis of left eye H10.[address] [id number] [place] [address] [id number] Sep, Dental examination Z01.[address] [id number] [address] [place] [phone] Sep, Morbid obesity E66.01 ; Lida r depression F32.9 and Recurrent major depressive disorder, in partial remission F33.41 [place] [address] [place] [id number] [address] [place] [address] Jul, [place] [id number] [address] [place] [phone] Jul, Major depressive disorder, r ecurrent, moderate F33.1 [place] [address] [facility] [id number] [address] [place] [phone] Jul, Major depressive disorder, r ecurrent, moderate F33.1 and Generalized anxiety disorder F41.[address] [place] [id number] [place] [address] [id number] Jul, Cough R05 [place] [address] [facility] [id number] [address] [place] [address] Jul, Morbid obesity E66.01 ; Lida r depression F32.9 and Recurrent major depressive disorder, in partial remission F33.[address] [place] [id number] [place] [address] [id number] Jul, [place] [id number] [place] [address] [id number] Jul, [place] [id number] [place] [address] [id number] Jul, Gastroenteritis K52.9 and Cough R05 [address] [id number] [place] [address] [id number] Jun, Acute bacterial conjunctivitis of left e ye H10.32 [place] [address] [place] [id number] [address] [place] [address] Jun, [place] [address] [place] [id number] [address] [place] [address] Jun, Recurrent major depressive d isorder, in partial remission F33.41 [place] [address] [facility] [id number] [address] [place] [address] May, Major depression F32.9 and M orbid obesity E66.01 [place] [address] [place] [id number] [address] [place] [address] May, [place] [address] [id number] [place] [address] [id number] May, Thrush B37.0 [facility] [address] [facility] [id number] [address] [place] [phone] Apr, Major depressive disorder, r ecurrent, moderate F33.1 [facility] [address] [facility] [id number] [address] [place] [phone] Apr, Insomnia G47.00 ; Major depr ession F32.9 and Recurrent major depressive disorder, in partial remission F33.41 [facility] [address] [facility] [id number] [address] [place] [phone] Apr, [place] [address] [facility] [id number] [address] [place] [phone] Apr, Major depression F32.9 and R ecurrent major depressive disorder, in partial remission F33.41 [facility] [address] [id number], [place] [id number] Mar, Benign essential hypertension I10 ; Morb id obesity E66.01 ; Impacted cerumen of both ears H61.23 ; Laceration of finger of right hand, initial encounter S61.219A and Encounter for immunization Z23 [facility] [address] [facility] [id number] [address] [place] [address] Mar, [place] [address] [facility] [id number] [address] [place] [phone] Mar, [place] [address] [facility] [id number] [address] [place] [address] Mar, [facility] [address] [id number], [place] [id number] Feb, Nausea R11.0 ; Blood in the stool K92.1 and Benign essential hypertension I10 [facility] [address] [facility] [id number] [address] [place] [address] Feb, Major depression F32.9 and R ecurrent major depressive disorder, in partial remission F33.41 [facility] [address] [id number], [place] [id number] Feb, [facility] [address] [id number], [place] [id number] Feb, Recurrent major depressive disorder, in partial remission F33.41 [facility] [address] [id number], [place] [id number] Jan, [facility] [address] [id number], [place] [id number] Jan, Benign essential hypertension I10 ; Robert a R60.9 and Hyperlipidemia, unspecified hyperlipidemia type E78.5 [facility] [address] [id number], [place] [id number] Jan, Recurrent major depressive disorder, in partial remission F33.41 [facility] [address] [id number] [place] S [id number] Jan, [facility] [address] [id number], [place] [id number] Jan, [facility] [address] [address] [id number], [place] [id number] Jan, [facility] [address] [facility] [id number] [address] [place] [phone] Jan, [facility] [address] [facility] [id number] [address] [place] [address] Dec, [facility] [address] [facility] [id number] [address] [place] [phone] Nov, [facility] [address] [facility] [id number] [address] [place] [phone] Nov, Major depression F32.9 [facility] [address] [facility] [id number] [address] [place] [phone] Nov, [facility] [address] [facility] [id number] [address] [place] [address] Nov, [facility] [address] [facility] [id number] [address] [place] [phone] Nov, Major depressive disorder, r ecurrent episode, mild F33.0 and Anxiety F41.9 [place] [address] [facility] [address] [id number], [place] [id number] Nov, [id number] [place] [address] [id number] October, Left elbow pain M25.522 and Other season al allergic rhinitis J30.[id number] [place] [address] [id number] October, [facility] [address] [facility] [id number] [address] [place] [phone] October, Major depressive disorder, r ecurrent, moderate F33.1 [place] [address] [facility] [id number] [address] [place] [phone] October, Major depression F32.9 [place] [address] [place] [id number] [address] [place] [phone] Sep, [place] or callus L84 and Onych omycosis B35.1 [place] [address] [facility] [id number] [address] [place] [address] Sep, Major depressive disorder, r ecurrent, moderate F33.1 [facility] [address] [facility] [id number] [address] [place] [address] Sep, Major depression F32.9 [place] [address] [facility] [id number] [address] [place] [address] Sep, Moderate episode of recurren t major depressive disorder F33.[address] [id number], [place] [id number] Sep, Muscle strain T14.8 [facility] [address] [facility] [id number] [address] [place] [address] Aug, Major depression F32.9 [facility] [address] [facility] [id number] [address] [place] [address] Aug, Major depression F32.9 [facility] [address] [facility] [id number] [address] [place] [phone] 24 Jul, 2015 Morbid obesity E66.01 and Ma cora depression F32.9 [facility] [address] [facility] [id number] [address] [place] [phone] 24 Jul, 2015 Depression, major, recurrent , moderate F33.[address] [id number], [place] [id number] Jul, [facility] [address] [facility] [id number] [address] [place] [phone] Jul, [facility] [address] [facility] [id number] [place] [phone] 16 Jul, 2015 Major depression F32.9 and M orbid obesity E66.[address] [id number] [place] [address] [id number] 11 Jul, 2015 Type II diabetes mellitus E11.9 ; Callus of foot L84 ; Benign essential hypertension I10 and Renal insufficiency N28.9 [facility] [address] [facility] [id number] [address] [place] [phone] 09 Jul, 2015 Depression, major, recurrent , moderate F33.1 [facility] [address] [facility] [id number] [address] [place] [phone] 05 Jul, 2015 Major depression F32.9 [facility] [address] [place] [id number] [address] [place] [phone] Jul, [facility] [address] [facility] [id number] [address] [place] [phone] Jun, Major depression F32.9 [facility] [address] [facility] [id number] [address] [place] [phone] Jun, Major depressive disorder, r ecurrent, moderate F33.1 [facility] [address] [place] [id number] [address] [place] [phone] Jun, [facility] [address] [facility] [id number] [address] [place] [phone] 08 Jun, 2015 Major depressive disorder, r ecurrent, moderate F33.1 and Major depression F32.[address] [id number], [place] [id number] Jun, Type II diabetes mellitus E11.9 [place] [address] [facility] [id number] [address] [place] [phone] Jun, Depression, major, recurrent , moderate F33.1 [place] [address] [facility] [id number] [address] [place] [phone] May, Major depressive disorder, r ecurrent, moderate F33.1 [place] [address] [place] [id number] [address] [place] [phone] May, [address] [id number] [place] [address] [id number] May, Edema R60.9 [place] [id number] [place] [phone] May, Insomnia G47.00 and Major de pression F32.[address] [id number] [place] [address] [id number] May, 2015 Morbid obesity E66.01 ; Edema R60.9 ; Sh ortness of breath R06.02 ; Benign essential hypertension I10 and Renal insufficiency N28.[id number] [place] [address] [id number] May, Hyperlipemia 272.4 and Renal insufficien cy N28.9 [place] [address] [address] [place] [id number] [address] [place] [phone] Apr, Major depression F32.9 [place] [address] [address] [place] [id number] [address] [place] [phone] Apr, [place] [address] [address] [place] [id number] [address] [place] [phone] Apr, Major depressive disorder, r ecurrent, moderate F33.1 [facility] [address] [id number] [id number] Apr, Type II diabetes mellitus E11.9 ; Benign essential hypertension I10 ; Edema R60.9 and Renal insufficiency N28.9 [place] [address] [address] [facility] [id number] [address] [place] [phone] Mar, Major depressive disorder, r ecurrent, moderate F33.1 [place] [address] [address] [facility] [id number] [address] [place] [phone] Mar, [place] [address] [address] [facility] [id number] [address] [place] [phone] Mar, Major depression F32.[address] [id number] [id number] Mar, Morbid obesity E66.01 ; Benign essential hypertension I10 and Type II diabetes mellitus E11.9 [place] [address] [place] [id number] [address] [place] [id number] Feb, Major depressive disorder, r ecurrent, moderate F33.1 [place] [address] [facility] [id number] [address] [place] [id number] Feb, Major depressive disorder, r ecurrent episode, in partial or unspecified remission 296.35 ; Anxiety state, unspecified 300.00 and Morbid obesity 278.01 [place] [address] [facility] [id number] [address] [place] [id number] Feb, [place] [address] [id number] [id number] Feb, Vomiting 787.03 and Viral syndrome 079.[address] [id number] [address] [place] [address] 15 Feb, 2015 Major depression, recurrent 296.30 ; Generalized anxiety disorder 300.02 and No condition on [place] II V71.09 [facility] [address] [id number] [id number] Feb, Skin tag 701.9 [facility] [address] [facility] [id number] [address] [place] [address] Feb, [facility] [address] [facility] [id number] [address] [place] [address] Jan, Depression, major, recurrent , moderate 296.32 [facility] [address] [facility] [id number] [place] [id number] Jan, Nausea and vomiting 787.01 ; Rib pain on right side 786.50 and Fall on or from sidewalk curb E880.1 [facility] [address] [facility] [id number] [address] [place] [phone] Jan, [facility] [address] [place] [id number] [address] [place] [address] Jan, Major depressive disorder, r ecurrent episode, in partial or unspecified remission 296.35 and Anxiety state, unspecified 300.00 [facility] [address] [facility] [address] [id number] [place] [address] [id number] Jan, [facility] [address] [facility] [id number] [address] [place] [id number] Jan, Depression, major, recurrent , moderate 296.32 [facility] [address] [place] [id number] [address] [place] [address] Jan, Major depression, recurrent 296.30 ; No condition on [place] II V71.09 and No condition on axis III V71.09 [facility] [address] [facility] [id number] [place] [address] [id number] Jan, Drug-induced nausea and vomiting 787.01 [facility] [address] [facility] [id number] [address] [place] [phone] Jan, Depression, major, recurrent , moderate 296.32 [facility] [address] [facility] [id number] [address] [place] [id number] Dec, Depression, major, recurrent , moderate 296.32 [place] [address] [facility] [address] [id number] [place] [address] [id number] Dec, Morbid obesity 278.01 ; Metabolic syndro me 277.7 ; Hyperlipemia 272.4 ; Benign essential hypertension 401.1 ; Dietary counseling V65.3 ; Exercise counseling V65.41 and Inflamed skin tag 701.[address] [address] Dec, Depression, major, recurrent , moderate 296.[address] [address] Dec, [address] [address] Dec, Major depression, recurrent 296.30 ; Anxiety, generalized 300.02 and No condition on [place] II V71.[address] [address] Dec, Depression, major, recurrent , moderate 296.[address] [address] Dec, Major depressive disorder, r ecurrent episode, moderate 296.32 [place] [id number] [address] [place] [address] Dec, Depression, major, recurrent , moderate 296.32 [place] [id number] [address] [place] [phone] Dec, Depression, major, recurrent , moderate 296.32 [place] [id number] [address] [place] [address] Dec, Depression, major, recurrent , moderate 296.[address] [address] Dec, Depression, major, recurrent , moderate 296.32 [place] [id number] [address] [place] [address] Nov, Depression, major, recurrent , moderate 296.32 [facility] [address] [facility] [id number] [address] [place] [address] 16 Nov, 2014 Major depression 296.20 ; So cial phobia 300.23 and No condition on [place] II V71.09 [facility] [address] [facility] [id number] [address] [place] [id number] 16 Nov, 2014 Depression, major, recurrent , moderate 296.32 [facility] [address] [facility] [id number] [address] [place] [id number] Nov, Major depressive disorder, r ecurrent episode, moderate 296.32 and Generalized anxiety disorder 300.02 [facility] [address] [place] [id number] [place] [address] 09 Nov, 2014 Depression, major, recurrent , moderate 296.32 [facility] [address] [place] [id number] [address] [place] [phone] Nov, Depression, major, recurrent , moderate 296.32 [facility] [address] [place] [id number] [address] [place] [address] October, Generalized anxiety disorder 300.02 ; No condition on [place] II V71.09 and Major depressive disorder, recurrent 296.30 [facility] [address] [place] [id number] [address] [place] [address] 14 Sep, 2014 [facility] [address] [place] [id number] [address] [place] [phone] Sep, [facility] [address] [place] [id number] [address] [place] [id number] 24 Aug, 2014 [facility] [address] [place] [id number] [address] [place] [phone] Aug, [facility] [address] [place] [id number] [address] [place] [address] Aug, [facility] [address] [place] [id number] [address] [place] [phone] Aug, [facility] [address] [id number] [facility] [address] 20 Aug, 2014 [facility] [address] [id number] [address] [place] [address], [place] [address] 20 Aug, 2014 [facility] [address] [id number] [address] [place] [address], [place] [address] 20 Aug, 2014 [facility] [address] [id number] [address] [place] [address], [place] [address] 20 Aug, 2014 [facility] [address] [id number] [address] [place] [address], [place] [address] 13 Aug, 2014 [facility] [address] [id number] [address] [place] [address], [place] [address] 13 Aug, 2014 [facility] [address] [id number] [address] [place] [address], [place] [address] 13 Aug, 2014 [facility] [address] [id number] [address] [place] [address], [place] [address] 13 Aug, 2014 [facility] [address] [id number] [address] [place] [address], [place] [address] 12 Aug, 2014 [facility] [address] [id number] [address] [place] [address], [place] [address] 12 Aug, 2014 [facility] [address] [id number] [address] [place] [address], [place] [address] 10 Aug, 2014 [facility] [address] [id number] [address] [place] [address], [place] [address] 10 Aug, 2014 [facility] [address] [id number] [address] [place] [address], [place] [address] Aug, [facility] [address] [id number] [address] [place] [address], [place] [address] Aug, [facility] [address] [id number] [address] [place] [address], [place] [address] 24 Jul, 2014 [facility] [address] [id number] [address] [place] [address], [place] [address] Jul, [facility] [address] [id number] [address] [place] [address], [place] [address] Jul, [facility] [address] [id number] [address] [place] [address], [place] [address] Jul, [facility] [address] [id number] [address] [place] [address], [place] [address] Jul, [facility] [address] [id number] [address] [place] [address], [place] [address] Jul, [facility] [address] [id number] [address] [place] [address], [place] [address] Jun, [facility] [address] [id number] [address] [place] [address], [place] [address] Jun, [facility] [address] [id number] [address] [place] [address], [place] [address] Jun, [facility] [address] [id number] [address] [place] [address], [place] [address] Jun, [facility] [address] [id number] [address] [place] [address], [place] [address] Jun, [facility] [address] [id number] [address] [place] [address], [place] [address] Jun, [facility] [address] [id number] [address] [place] [address], [place] [address] Jun, [facility] [address] [id number] [address] [place] [address], [place] [address] Jun, [facility] [address] [id number] [address] [place] [address], [place] [address] Jun, [facility] [address] [id number] [address] [place] [address], [place] [address] Jun, [facility] [address] [id number] [address] [place] [address], [place] [address] Jun, [facility] [address] [id number] [address] [place] [address], [place] [address] Jun, [facility] [address] [id number] FANNYKiesha S [id number] Jun, [facility] [address] [id number] [address] [place] [address] Jun, [facility] [address] [id number] [address] [place] [address], [place] [address] Jun, [facility] [address] [id number] [address] [place] [address], [place] [address] Jun, [facility] [address] [id number] [address] [place] [address], [place] [address] May, [facility] [address] [id number] [address] [place] [address], [place] [address] May, [facility] [address] [id number] [address] [place] [address] May, [facility] [address] [id number] [address] [place] [address], [place] [address] May, [facility] [address] [id number] [address] [place] [address], [place] [address] Apr, [facility] [address] [id number] [address] [place] [address], [place] [address] Apr, [facility] [address] [id number] [address] [place] [address], [place] [address] Apr, [facility] [address] [id number] [address] [place] [address] Apr, [facility] [address] [id number] [address] [place] [address] Apr, [facility] [address] [id number] [address] [place] [address], [place] [address] Apr, [facility] [address] [id number] [address] [place] [address], [place] [address] Apr, [facility] [address] [id number] [address] [place] [address], [place] [address] Apr, [facility] [address] [id number] [address] [place] [address], [place] [address] Apr, [facility] [address] [id number] [address] [place] [address], [place] [address] Apr, [facility] [address] [id number] [address] [place] [address], [place] [address] Apr, [facility] [address] [id number] [address] [place] [address], [place] [address] Apr, [facility] [address] [id number] [address] [place] [address], [place] [address] Apr, [facility] [address] [id number] [address] [place] [address], [place] [address] Apr, [facility] [address] [id number] [address] [place] [address], [place] [address] Apr, [facility] [address] [id number] [address] [place] [address], [place] [address] Apr, [facility] [address] [id number] [address] [place] [address], [place] [address] Apr, [facility] [address] [id number] [address] [place] [address], [place] [address] Apr, [facility] [address] [id number] [address] [place] [address], [place] [address] Apr, [facility] [address] [id number] [address] [place] [address], [place] [address] Apr, [facility] [address] [id number] [address] [place] [address], [place] [address] Mar, [facility] [address] [id number] [address] [place] [address], [place] [address] Mar, [facility] [address] [id number] [address] [place] [address], [place] [address] Mar, [facility] [address] [id number] [address] [place] [address], [place] [address] Mar, [facility] [address] [id number] [address] [place] [address], [place] [address] Mar, [facility] [address] [id number] [address] [place] [address], [place] [address] Mar, [facility] [address] [id number] [address] [place] [address], [place] [address] Mar, [facility] [address] [id number] [address] [place] [address], [place] [address] Mar, [facility] [address] [id number] [address] [place] [address], [place] [address] Mar, [facility] [address] [id number] [address] [place] [address], [place] [address] Mar, [facility] [address] [id number] [address] [place] [address], [place] [address] Feb, [facility] [address] [id number] [address] [place] [address], [place] [address] Feb, [facility] [address] [id number] [address] [place] [address], [place] [address] Feb, [facility] [address] [id number] [address] [place] [address], [place] [address] Feb, [facility] [address] [id number] [address] [place] [address], [place] [address] Jan, [facility] [address] [id number] [address] [place] [address], [place] [address] Jan, [facility] [address] [id number] [address] [place] [address], [place] [address] Jan, [facility] [address] [id number] [address] [place] [address], [place] [address] Jan, [facility] [address] [id number] [facility] [address] Jan, [facility] [address] [id number] [address] [place] [address], [place] [address] Jan, [facility] [address] [id number] [address] [place] [address], [place] [address] Dec, [facility] [address] [id number] [address] [place] [address], [place] [address] Dec, [facility] [address] [id number] [address] [place] [address], [place] [address] Nov, [facility] [address] [id number] [address] [place] [address], [place] [address] Nov, [facility] [address] [id number] [address] [place] [address], [place] [address] Nov, [facility] [address] [id number] [address] [place] [address], [place] [address] Nov, [facility] [address] [id number] [address] [place] [address], [place] [address] Nov, [facility] [address] [id number] [address] [place] [address], [place] [address] Nov, [facility] [address] [id number] [address] [place] [address], [place] [address] Sep, [facility] [address] [id number] [address] [place] [address], [place] [address] Sep, [facility] [address] [id number] [address] [place] [address], [place] [address] Sep, [facility] [address] [id number] [address] [place] [address], [place] [address] Sep, [facility] [address] [id number] [address] [place] [address], [place] [address] Aug, [facility] [address] [id number] [address] [place] [address], [place] [address] Aug, [facility] [address] [id number] [address] [place] [address], [place] [address] Jul, [facility] [address] [id number] [address] [place] [address], [place] [address] Jul, [facility] [address] [id number] [address] [place] [address], [place] [address] Jun, [facility] [address] [id number] [address] [place] [address], [place] [address] Jun, [facility] [address] [id number] [address] [place] [address], [place] [address] Jun, [facility] [address] [id number] [address] [place] [address], [place] [address] Jun, [facility] [address] [id number] [address] [place] [address], [place] [address] May, [facility] [address] [id number] [address] [place] [address], [place] [address] May, [facility] [address] [id number] [address] [place] [address], [place] [address] May, [facility] [address] [id number] [address] [place] [address], [place] [address] May, [facility] [address] [id number] [address] [place] [address], [place] [address] May, [facility] [address] [id number] [address] [place] [address], [place] [address] May, [facility] [address] [id number] [address] [place] [address], [place] [address] Apr, [facility] [address] [id number] [address] [place] [address], [place] [address] Apr, [facility] [address] [id number] [address] [place] [address], [place] [address] Apr, [facility] [address] [id number] [address] [place] [address] Apr, [facility] [address] [id number] [address] [place] [address], [place] [address] Mar, [facility] [address] [id number] [address] [place] [address] Mar, [facility] [address] [id number] [address] [place] [address] Mar, [facility] [address] [id number] [address] [place] [address] Mar, [facility] [address] [id number] [address] [place] [address] Feb, [facility] [address] [id number] [id number] Jan, [facility] [address] [id number] [address] [place] [address] Jan, [facility] [address] [id number] [address] [place] [address] Dec, [facility] [address] [id number] [address] [place] [address] Dec, [facility] [address] [id number] [address] [place] [phone] Dec, [facility] [address] [id number] [place] [id number] Dec, [facility] [address] [id number] [address] [place] [phone] Nov, [facility] [address] [id number] [address] [place] [address], [place] [id number] 14 Nov, 2012 [facility] [address] [id number] [address] [place] [phone] Nov, [facility] [address] [id number] [address] [place] [phone] Nov, [facility] [address] [id number] [address] [place] [phone] 11 Nov, 2012 [facility] [address] [facility] [id number] [address] [place] [phone] October, [facility] [address] [facility] [id number] [address] [place] [phone] October, [facility] [address] [facility] [id number] [address] [place] [phone] Aug, [facility] [address] [facility] [id number] [address] [place] [id number] 13 Nov, 2011 IMMUNIZATIONS No Known Immunizations SOCIAL HISTORY Never Assessed REASON FOR VISIT Repository Medication PLAN OF CARE VITAL SIGNS MEDICATIONS Medication Instructions Dosage Frequency Start Date End Date Duration S chandni Omeprazole 40 mg Orally Once a day 1 tablet 24h 45 d ays Active RESULTS No Results PROCEDURES No Known [...] 03/2016 Hospitalization History gastric sleeve Hospitalization History [facility] ER Trouble with left shoulder blade 08/2017
--- OUTSIDE RECORDS SUMMARY | 2019-11-29 09:30 | XMS REPORT ---
Author Author Curt TIRADO Organization [facility] Address Unknown Phone Unavailable Care Team Providers Care Financial Recruiter Name Role Phone JOSHNORON Unavailable Unavailable PROBLEMS Type Condition ICD9-CM Code QLA86-YX Code Onset Dates Condition S tatus SNOMED Code Problem Metabolic syndrome E88.81 Active 2 82202656 Problem Severe episode of recurrent major depressive disorder, without psychotic features F33.2 Active 10750032 Problem Anxiety F41.9 Active 90404605 Problem Depressive disorder, not elsewhere classified F32. 9 Active 86450050 Problem Insomnia G47.00 Active 700081155 Problem Sciatica, right side M54.31 Active [id number] Problem Mixed obsessional thoughts and acts F42.2 Active 51257412 Problem Vitamin D deficiency E55.9 Active 82710374 Problem DANIELA (generalized anxiety disorder) F41.1 Active 39337276 Problem BMI 45.0-49.9, adult Z68.42 Active 626417441 Problem Morbid obesity E66.01 Active 87010 6002 Problem Type II diabetes mellitus E11.9 Acti ve 35905869 Problem Hyperlipemia E78.5 Active 2723973 4 Problem Major depression F32.9 Active 370 318218 Problem Edema R60.9 Active 970628820 Problem Callus of foot L84 Active 60248 1005 Problem Benign essential hypertension I10 Active 9939370 Problem Recurrent major depressive disorder, in partial remission F33.41 Active 18116593 Problem Renal insufficiency N28.9 Active 885336211 Problem Acute bacterial conjunctivitis of left eye H10.32 Active 726239213 ALLERGIES No Information ENCOUNTERS Encounter Location Date Diagnosis [facility] [address] [facility] [facility] [id number] [address] [place] [phone] Jan, [facility] [address] [facility] [id number] [address] [place] [phone] Jan, [address] [id number] [place] [address] [id number] Jan, [facility] [address] [facility] [id number] [address] [place] [id number] Dec, DANIELA (generalized anxiety dis order) F41.1 and Depressive disorder, not elsewhere classified F32.[address] [id number] [place] [id number] Dec, Recurrent major depressive disorder, in partial remission F33.[address] [facility] [address] [id number] [place] [id number] Dec, [facility] [address] [id number] [place] [id number] Nov, [facility] [address] [id number], [place] [id number] Nov, Recurrent major depressive disorder, in partial remission F33.41 [place] [address] [facility] [id number] [address] [place] [phone] Nov, Recurrent major depressive d isorder, in partial remission F33.41 ; Mixed obsessional thoughts and acts F42.2 ; DANIELA (generalized anxiety disorder) F41.1 and BMI 45.0-49.9, adult Z68.42 [facility] [address] [id number], [place] [id number] Nov, [facility] [address] [id number], [place] [id number] Nov, Other conjunctivitis of both eyes H10.89 and Sciatica, right side M54.31 [facility] [address] [id number] [place] [id number] Nov, [facility] [address] [id number] [place] [id number] Nov, [facility] [address] [id number] [place] [id number] October, [facility] [address] [id number] [place] [id number] October, [facility] [address] [facility] [id number] [address] [place] [id number] October, BMI 45.0-49.9, adult Z68.42 ; Mixed obsessional thoughts and acts F42.2 ; Recurrent major depressive disorder, in partial remission F33.41 and DANIELA (generalized anxiety disorder) F41.[address] [place] [id number], [place] [id number] October, Benign essential hypertension I10 ; Morb id obesity E66.01 and BMI 45.0-49.9, adult Z68.[address] [id number], [place] [id number] Sep, [id number] [place] [address] [id number] Sep, [address] [place] [id number] Sep, [address] [id number] [place] [address] [id number] Sep, Hospital discharge follow-up Z09 ; Aller gic rhinitis, unspecified seasonality, unspecified trigger J30.9 and Shortness of breath R06.[id number] [place] [address] [id number] Sep, Recurrent major depressive disorder, in partial remission F33.[address] [id number] [place] [address] [id number] Aug, Irritable mood R45.4 [place] [address] [facility] [id number] [address] [place] [phone] Aug, [address] [place] [id number] [place] [address] [id number] Jul, Benign essential hypertension I10 ; Robert a R60.9 and Impacted cerumen of left ear H61.22 [facility] [address] [facility] [id number] [address] [place] [id number] 14 Jul, 2017 Major depression F32.9 ; Rec urrent major depressive disorder, in partial remission F33.41 and Anxiety F41.9 [place] [address] [facility] [id number] [address] [place] [phone] Jun, Major depression F32.9 ; Rec urrent major depressive disorder, in partial remission F33.41 and Anxiety F41.[address] [facility] [address] [id number], [place] [id number] Jun, Major depression F32.9 ; Morbid obesity E66.01 ; Irritable mood R45.4 ; Hand weakness R29.898 and Vitamin D deficiency E55.[address] [facility] [address] [id number], [place] [id number] Jun, [facility] [id number] [place] [address] [id number] May, Major depression F32.9 [place] [address] [id number] [address] [place] [phone] May, Major depression F32.[address] [facility] [address] [id number], [place] [id number] May, BMI 50.0-59.9, adult Z68.43 ; Major depr ession F32.9 ; Anxiety F41.9 ; Hypertrophic toenail L60.2 and Pain of left great toe M79.[address] [facility] [address] [id number], [place] [id number] May, Recurrent major depressive disorder, in partial remission F33.41 [place] [address] [facility] [id number] [address] [place] [id number] Apr, [facility] [address] [id number], [place] [id number] Apr, [facility] [address] [id number] [address] [place] [id number] Apr, Major depression F32.[address] [facility] [id number] [place] [address] [id number] Apr, Severe episode of recurrent major depres sive disorder, without psychotic features F33.2 ; Anxiety F41.9 and Insomnia G47.00 [facility] [id number] [place] [address] [id number] Apr, [facility] [address] [id number] [address] [place] [phone] Apr, [facility] [id number] [place] [address] [id number] Apr, [facility] [id number] [place] [address] [id number] Mar, [facility] [id number] [place] [address] [id number] Mar, Allergic conjunctivitis of both eyes H10 .13 [facility] [address] [id number] [address] [place] [id number] Mar, Major depression F32.[address] [facility] [id number] [place] [address] [id number] Mar, Metabolic syndrome E88.81 ; History of g astric bypass Z98.890 ; Benign essential hypertension I10 and Allergic conjunctivitis of both eyes H10.13 [facility] [address] [facility] [id number] [address] [place] [id number] Mar, Major depression F32.[address] [facility] [id number] [place] [address] [id number] Feb, [facility] [address] [id number] [address] [place] [phone] Feb, Major depression F32.[address] [facility] [id number] [place] [address] [id number] Feb, Subacute maxillary sinusitis J01.00 and Bronchitis J40 [facility] [address] [facility] [id number] [address] [place] [id number] 06 Feb, 2017 Major depressive disorder, r ecurrent, moderate F33.1 [facility] [address] [id number], [place] [id number] Jan, [facility] [address] [id number], [place] [id number] Jan, Acute non-recurrent maxillary sinusitis J01.00 and Skin tag L91.8 [facility] [address] [place] [address] [place] [id number], [place] [id number] Jan, Cough R05 and Sinus congestion R09.81 [facility] [address] [id number], [place] [id number] Jan, [facility] [address] [id number], [place] [id number] Jan, Benign essential hypertension I10 ; Hist ory of gastric bypass Z98.890 and Nausea and vomiting in adult R11.2 [place] [address] [id number] [address] [place] [phone] Jan, Major depressive disorder, r ecurrent, moderate F33.1 [facility] [address] [id number] [address] [place] [id number] Dec, Insomnia G47.00 ; Recurrent major depressive disorder, in partial remission F33.41 and Morbid obesity E66.01 [facility] [address] [place] [address] [id number], [place] [id number] Dec, [facility] [address] [id number], [place] [id number] Dec, Chronic bacterial conjunctivitis of left eye H10.402 [facility] [address] [id number], [place] [id number] Nov, [facility] [address] [id number], [place] [id number] Nov, Dental examination Z01.20 [facility] [address] [place] [address] [id number], [place] [id number] Nov, Benign essential hypertension I10 ; Hist ory of gastric bypass Z98.890 and Nausea and vomiting in adult R11.2 [place] [address] [id number] [address] [place] [id number] 13 Nov, 2016 Major depressive disorder, r ecurrent, moderate F33.1 ; Generalized anxiety disorder F41.1 and Insomnia due to other mental disorder F51.05 [place] [address] [id number] [address] [place] [phone] Nov, Recurrent major depressive d isorder, in partial remission F33.41 ; Insomnia G47.00 and Morbid obesity E66.01 [facility] [address] [id number] [place], [facility] [id number] October, Abscess of left arm L02.[address] [id number] [address] [place] [phone] October, Morbid obesity E66.01 ; Lida r depression F32.9 and Recurrent major depressive disorder, in partial remission F33.[address] [place] [id number] [place] [address] [id number] Sep, Benign essential hypertension I10 ; Morb id obesity E66.01 ; S/P gastric bypass Z98.84 ; Abscess L02.91 and Chronic bacterial conjunctivitis of left eye H10.[id number] [place] [address] [id number] Sep, Dental examination Z01.[address] [id number] [address] [place] [id number] Sep, Morbid obesity E66.01 ; Lida r depression F32.9 and Recurrent major depressive disorder, in partial remission F33.41 [place] [address] [id number] [address] [place] [id number] Jul, [place] [address] [id number] [address] [place] [id number] Jul, Major depressive disorder, r ecurrent, moderate F33.1 [place] [address] [place] [id number] [address] [place] [id number] Jul, Major depressive disorder, r ecurrent, moderate F33.1 and Generalized anxiety disorder F41.1 [facility] [address] [id number], [place] [id number] Jul, Cough R05 [facility] [address] [phone] Jul, Morbid obesity E66.01 ; Lida r depression F32.9 and Recurrent major depressive disorder, in partial remission F33.41 [facility] [id number] [place] [address] [id number] Jul, [facility] [id number] [place] [address] [id number] Jul, [facility] [place] [address] [id number] [place] [address] [id number] Jul, Gastroenteritis K52.9 and Cough R05 [facility] [id number] [place] [address] [id number] Jun, Acute bacterial conjunctivitis of left e ye H10.32 [place] [address] [place] [id number] [place] [phone] Jun, [place] [address] [address] Jun, Recurrent major depressive d isorder, in partial remission F33.41 [facility] [address] [place] [id number] [address] [place] [phone] May, Major depression F32.9 and M orbid obesity E66.01 [facility] [address] [place] [id number] [address] [place] [phone] May, [facility] [id number] [place] [address] [id number] May, Thrush B37.0 [place] [address] [address] Apr, Major depressive disorder, r ecurrent, moderate F33.1 [facility] [address] [facility] [id number] [address] [place] [phone] Apr, Insomnia G47.00 ; Major depr ession F32.9 and Recurrent major depressive disorder, in partial remission F33.41 [facility] [address] [id number] [address] [place] [id number] Apr, [facility] [address] [id number] [address] [place] [id number] Apr, Major depression F32.9 and R ecurrent major depressive disorder, in partial remission F33.[address] [facility] [address] [id number], [place] [id number] Mar, Benign essential hypertension I10 ; Morb id obesity E66.01 ; Impacted cerumen of both ears H61.23 ; Laceration of finger of right hand, initial encounter S61.219A and Encounter for immunization Z23 [facility] [address] [facility] [id number] [address] [place] [id number] 17 Mar, 2016 [facility] [address] [facility] [id number] [address] [place] [phone] Mar, [facility] [address] [id number] [address] [place] [phone] Mar, [facility] [address] [id number], [place] [id number] Feb, Nausea R11.0 ; Blood in the stool K92.1 and Benign essential hypertension I10 [facility] [address] [id number] [address] [place] [id number] Feb, Major depression F32.9 and R ecurrent major depressive disorder, in partial remission F33.41 [facility] [address] [id number], [place] [id number] Feb, [facility] [address] [id number], [place] [id number] Feb, Recurrent major depressive disorder, in partial remission F33.[address] [facility] [address] [id number], [place] [id number] Jan, [facility] [address] [id number], [place] [id number] Jan, Benign essential hypertension I10 ; Robert a R60.9 and Hyperlipidemia, unspecified hyperlipidemia type E78.[address] [facility] [address] [id number], [place] [id number] Jan, Recurrent major depressive disorder, in partial remission F33.41 [facility] [address] [id number] [place] [id number] Jan, [facility] [address] [id number], [place] [id number] Jan, [facility] [address] [id number], [place] [id number] Jan, [facility] [address] [id number] [address] [place] [phone] Jan, [facility] [address] [id number] [address] [place] [id number] Dec, [facility] [address] [id number] [address] [place] [phone] Nov, [facility] [address] [id number] [address] [place] [phone] Nov, Major depression F32.9 [facility] [address] [id number] [address] [place] [id number] Nov, [facility] [address] [facility] [id number] [address] [place] [id number] Nov, [facility] [address] [id number] [address] [place] [id number] Nov, Major depressive disorder, r ecurrent episode, mild F33.0 and Anxiety F41.[address] [facility] [address] [id number], [place] [id number] Nov, [facility] [address] [id number], [place] [id number] October, Left elbow pain M25.522 and Other season al allergic rhinitis J30.2 [facility] [address] [id number], [place] [id number] October, [facility] [address] [id number] [address] [place] [id number] October, Major depressive disorder, r ecurrent, moderate F33.1 [facility] [address] [id number] [address] [place] [phone] October, Major depression F32.9 [place] [address] [facility] [id number] [address] [place] [phone] Sep, [place] or callus L84 and Onych omycosis B35.1 [facility] [address] [id number] [address] [place] [id number] Sep, Major depressive disorder, r ecurrent, moderate F33.1 [facility] [address] [id number] [address] [place] [id number] Sep, Major depression F32.9 [facility] [address] [id number] [address] [place] [id number] Sep, Moderate episode of recurren t major depressive disorder F33.1 [facility] [address] [id number], [place] [id number] Sep, Muscle strain T14.8 [facility] [address] [id number] [address] [place] [phone] Aug, Major depression F32.9 [facility] [address] [facility] [id number] [address] [place] [id number] Aug, Major depression F32.9 [facility] [address] [id number] [address] [place] [phone] Jul, Morbid obesity E66.01 and Ma cora depression F32.9 [facility] [address] [id number] [address] [place] [id number] Jul, Depression, major, recurrent , moderate F33.1 [place] [address] [id number], [place] [id number] Jul, [facility] [address] [id number] [address] [place] [id number] Jul, [facility] [address] [facility] [id number] [address] [place] [id number] Jul, Major depression F32.9 and M orbid obesity E66.01 [facility] [address] [id number], [place] [id number] Jul, Type II diabetes mellitus E11.9 ; Callus of foot L84 ; Benign essential hypertension I10 and Renal insufficiency N28.9 [place] [address] [facility] [id number] [address] [place] [id number] Jul, Depression, major, recurrent , moderate F33.1 [place] [address] [facility] [id number] [address] [place] [id number] Jul, Major depression F32.9 [place] [address] [facility] [id number] [address] [place] [id number] Jul, [place] [address] [facility] [id number] [address] [place] [id number] Jun, Major depression F32.9 [place] [id number] [facility] [id number] [address] [place] [id number] Jun, Major depressive disorder, r ecurrent, moderate F33.1 [place] [address] [facility] [id number] [address] [place] [id number] Jun, [place] [address] [facility] [id number] [address] [place] [id number] Jun, Major depressive disorder, r ecurrent, moderate F33.1 and Major depression F32.[address] [place] [address] [id number] [id number] Jun, Type II diabetes mellitus E11.9 [place] [address] [facility] [id number] [address] [place] [id number] Jun, Depression, major, recurrent , moderate F33.1 [place] [address] [facility] [id number] [address] [place] [id number] May, Major depressive disorder, r ecurrent, moderate F33.1 [place] [address] [facility] [id number] [address] [place] [id number] May, [id number] [place] [id number] May, Edema R60.9 [place] [address] [place] [id number] [address] [place] [id number] 17 May, 2015 Insomnia G47.00 and Major de pression F32.[id number] [place] [id number] May, Morbid obesity E66.01 ; Edema R60.9 ; Sh ortness of breath R06.02 ; Benign essential hypertension I10 and Renal insufficiency N28.[address] [id number][place] [id number] May, Hyperlipemia 272.4 and Renal insufficien cy N28.9 [place] [address] [facility] [id number] [address] [place] [id number] Apr, Major depression F32.9 [place] [address] [facility] [id number] [address] [place] [id number] Apr, [place] [address] [facility] [id number] [address] [place] [id number] Apr, Major depressive disorder, r ecurrent, moderate F33.[address] [id number] [id number] Apr, Type II diabetes mellitus E11.9 ; Benign essential hypertension I10 ; Edema R60.9 and Renal insufficiency N28.9 [place] [address] [facility] [id number] [address] [place] [id number] Mar, Major depressive disorder, r ecurrent, moderate F33.1 [place] [address] [facility] [id number] [address] [place] [id number] Mar, [place] [address] [facility] [id number] [address] [place] [id number] Mar, Major depression F32.[id number] [place] [id number] Mar, Morbid obesity E66.01 ; Benign essential hypertension I10 and Type II diabetes mellitus E11.9 [place] [address] [place] [id number] [address] [place] [address] Feb, Major depressive disorder, r ecurrent, moderate F33.1 [place] [address] [id number] [address] [place] [address] Feb, Major depressive disorder, r ecurrent episode, in partial or unspecified remission 296.35 ; Anxiety state, unspecified 300.00 and Morbid obesity 278.01 [place] [address] [place] [id number] [address] [place] [address] Feb, [facility] [address] [id number] [id number] Feb, Vomiting 787.03 and Viral syndrome 079.[address] [id number] [address] [place] [address] 15 Feb, 2015 Major depression, recurrent 296.30 ; Generalized anxiety disorder 300.02 and No condition on [place] II V71.[address] [facility] [address] [id number][place] [id number] Feb, Skin tag 701.9 [place] [address] [place] [id number] [address] [place] [address] Feb, [facility] [address] [facility] [id number] [address] [place] [address] Jan, Depression, major, recurrent , moderate 296.32 [facility] [address] [id number][place] [id number] Jan, Nausea and vomiting 787.01 ; Rib pain on right side 786.50 and Fall on or from sidewalk curb E880.1 [facility] [address] [place] [id number] [address] [place] [address] Jan, [facility] [address] [place] [id number] [address] [place] [address] Jan, Major depressive disorder, r ecurrent episode, in partial or unspecified remission 296.35 and Anxiety state, unspecified 300.[id number] [place] [address] [id number] Jan, [facility] [address] [id number] [address] [place] [address] Jan, Depression, major, recurrent , moderate 296.32 [facility] [address] [place] [id number] [address] [place] [address] Jan, Major depression, recurrent 296.30 ; No condition on [place] II V71.09 and No condition on axis III V71.09 [facility] [address] [place], [place] [address] [id number][place] [id number] Jan, Drug-induced nausea and vomiting 787.01 [facility] [address] [id number] [address] [place] [address] Jan, Depression, major, recurrent , moderate 296.32 [facility] [address] [facility] [id number] [address] [place] [address] Dec, Depression, major, recurrent , moderate 296.32 [id number] [place] [address] [id number] Dec, Morbid obesity 278.01 ; Metabolic syndro me 277.7 ; Hyperlipemia 272.4 ; Benign essential hypertension 401.1 ; Dietary counseling V65.3 ; Exercise counseling V65.41 and Inflamed skin tag 701.9 [place] [address] [address] Dec, Depression, major, recurrent , moderate 296.[address] [address] Dec, [address] [address] Dec, Major depression, recurrent 296.30 ; Anxiety, generalized 300.02 and No condition on [place] II V71.09 [place] [address] [address] Dec, Depression, major, recurrent , moderate 296.32 [place] [address] [address] Dec, Major depressive disorder, r ecurrent episode, moderate 296.[address] [address] Dec, Depression, major, recurrent , moderate 296.32 [place] [address] [address] Dec, Depression, major, recurrent , moderate 296.32 [place] [address] [address] Dec, Depression, major, recurrent , moderate 296.32 [place] [address] [address] Dec, Depression, major, recurrent , moderate 296.32 [place] [address] [address] Nov, Depression, major, recurrent , moderate 296.32 [place] [address] [address] Nov, Major depression 296.20 ; So cial phobia 300.23 and No condition on [place] II V71.09 [facility] [address] [id number] [address] [place] [address] 16 Nov, 2014 Depression, major, recurrent , moderate 296.32 [facility] [address] [place] [id number] [address] [place] [address] Nov, Major depressive disorder, r ecurrent episode, moderate 296.32 and Generalized anxiety disorder 300.02 [facility] [address] [place] [id number] [address] [place] [address] Nov, Depression, major, recurrent , moderate 296.32 [facility] [address] [place] [id number] [place] [address] Nov, Depression, major, recurrent , moderate 296.32 [facility] [address] [address] October, Generalized anxiety disorder 300.02 ; No condition on [place] II V71.09 and Major depressive disorder, recurrent 296.30 [facility] [address] [place] [id number] [address] [place] [address] Sep, [facility] [address] [place] [id number] [address] [place] [address] Sep, [facility] [address] [place] [id number] [address] [place] [address] Aug, [facility] [address] [place] [id number] [address] [place] [id number] Aug, [facility] [address] [place] [id number] [address] [place] [address] Aug, [facility] [address] [place] [id number] [address] [place] [address] Aug, [facility] [address] [place] [id number] [address] [place] [address] Aug, [facility] [address] [id number] [facility] [place] [address] 20 Aug, 2014 [facility] [address] [id number] [address] [place] [address], [place] [address] 20 Aug, 2014 [facility] [address] [id number] [address] [place] [address], [place] [address] 20 Aug, 2014 [facility] [address] [id number] [address] [place] [address], [place] [address] 13 Aug, 2014 [facility] [address] [id number] [address] [place] [address], [place] [address] 13 Aug, 2014 [facility] [address] [id number] [address] [place] [address], [place] [address] 13 Aug, 2014 [facility] [address] [id number] [address] [place] [address], [place] [address] 13 Aug, 2014 [facility] [address] [id number] [address] [place] [address], [place] [address] 12 Aug, 2014 [facility] [address] [id number] [address] [place] [address], [place] [address] 12 Aug, 2014 [facility] [address] [id number] [address] [place] [address], [place] [address] 10 Aug, 2014 [facility] [address] [id number] [address] [place] [address], [place] [address] 10 Aug, 2014 [facility] [address] [id number] [address] [place] [address], [place] [address] 09 Aug, 2014 [facility] [address] [id number] [address] [place] [address], [place] [address] Aug, [facility] [address] [id number] [address] [place] [address], [place] [address] 24 Jul, 2014 [facility] [address] [id number] [address] [place] [address], [place] [address] 24 Jul, 2014 [facility] [address] [id number] [address] [place] [address], [place] [address] Jul, [facility] [address] [id number] [address] [place] [address], [place] [address] Jul, [facility] [address] [id number] [address] [place] [address], [place] [address] Jul, [facility] [address] [id number] [address] [place] [address], [place] [address] Jul, [facility] [address] [id number] [address] [place] [address], [place] [address] Jun, [facility] [address] [id number] [address] [place] [address], [place] [address] Jun, [facility] [address] [id number] [address] [place] [address], [place] [address] Jun, [facility] [address] [id number] [address] [place] [address], [place] [address] Jun, [facility] [address] [id number] [address] [place] [address], [place] [address] Jun, [facility] [address] [id number] [address] [place] [address], [place] [address] Jun, [facility] [address] [id number] [address] [place] [address], [place] [address] Jun, [facility] [address] [id number] [address] [place] [address], [place] [address] Jun, [facility] [address] [id number] [address] [place] [address], [place] [address] Jun, [facility] [address] [id number] [address] [place] [address], [place] [address] Jun, [facility] [address] [id number] [address] [place] [address], [place] [address] Jun, [facility] [address] [id number] [address] [place] [address], [place] [address] Jun, [facility] [address] [id number] [id number] 05 Jun, 2014 [facility] [address] [id number] [address] [place] [address], [place] [address] Jun, [facility] [address] [id number] [address] [place] [address], [place] [address] Jun, [facility] [address] [id number] [address] [place] [address], [place] [address] Jun, [facility] [address] [id number] [address] [place] [address], [place] [address] May, [facility] [address] [id number] [address] [place] [address], [place] [address] May, [facility] [address] [id number] [address] [place] [address], [place] [address] May, [facility] [address] [id number] [address] [place] [address], [place] [address] May, [facility] [address] [id number] [address] [place] [address], [place] [address] Apr, [facility] [address] [id number] [address] [place] [address], [place] [address] Apr, [facility] [address] [id number] [address] [place] [address], [place] [address] Apr, [facility] [address] [id number] [address] [place] [address], [place] [address] Apr, [facility] [address] [id number] [address] [place] [address], [place] [address] Apr, [facility] [address] [id number] [address] [place] [address], [place] [address] Apr, [facility] [address] [id number] [address] [place] [address], [place] [address] Apr, [facility] [address] [id number] [address] [place] [address], [place] [address] Apr, [facility] [address] [id number] [address] [place] [address], [place] [address] Apr, [facility] [address] [id number] [address] [place] [address], [place] [address] Apr, [facility] [address] [id number] [address] [place] [address], [place] [address] Apr, [facility] [address] [id number] [address] [place] [address], [place] [address] Apr, [facility] [address] [id number] [address] [place] [address], [place] [address] Apr, [facility] [address] [id number] [address] [place] [address], [place] [address] Apr, [facility] [address] [id number] [address] [place] [address], [place] [address] Apr, [facility] [address] [id number] [address] [place] [address], [place] [address] Apr, [facility] [address] [id number] [address] [place] [address], [place] [address] Apr, [facility] [address] [id number] [address] [place] [address], [place] [address] Apr, [facility] [address] [id number] [address] [place] [address], [place] [address] Apr, [facility] [address] [id number] [address] [place] [address], [place] [address] Apr, [facility] [address] [id number] [address] [place] [address], [place] [address] Mar, [facility] [address] [id number] [address] [place] [address], [place] [address] Mar, [facility] [address] [id number] [address] [place] [address], [place] [address] Mar, [facility] [address] [id number] [address] [place] [address], [place] [address] Mar, [facility] [address] [id number] [address] [place] [address], [place] [address] Mar, [facility] [address] [id number] [address] [place] [address], [place] [address] Mar, [facility] [address] [id number] [address] [place] [address], [place] [address] Mar, [facility] [address] [id number] [address] [place] [address], [place] [address] Mar, [facility] [address] [id number] [address] [place] [address], [place] [address] Mar, [facility] [address] [id number] [address] [place] [address], [place] [address] Mar, [facility] [address] [id number] [address] [place] [address], [place] [address] Feb, [facility] [address] [id number] [address] [place] [address], [place] [address] Feb, [facility] [address] [id number] [address] [place] [address], [place] [address] Feb, [facility] [address] [id number] [address] [place] [address], [place] [address] Feb, [facility] [address] [id number] [address] [place] [address], [place] [address] Jan, [facility] [address] [id number] [address] [place] [address], [place] [address] Jan, [facility] [address] [id number] [address] [place] [address], [place] [address] Jan, [facility] [address] [id number] [address] [place] [address], [place] [address] Jan, [facility] [address] [id number] [address] [place] [address], [place] [address] Jan, [facility] [address] [id number] [facility] [place] [address] Jan, [facility] [address] [id number] [facility] [place] [address] Dec, [facility] [address] [id number] [facility] [place] [address] Dec, [facility] [address] [id number] [address] [place] [address], [place] [address] Nov, [facility] [address] [id number] [address] [place] [address], [place] [address] Nov, [facility] [address] [id number] [address] [place] [address], [place] [address] Nov, [facility] [address] [id number] [address] [place] [address], [place] [address] Nov, [facility] [address] [id number] [address] [place] [address], [place] [address] Nov, [facility] [address] [id number] [address] [place] [address], [place] [address] Nov, [facility] [address] [id number] [address] [place] [address], [place] [address] Sep, [facility] [address] [id number] [address] [place] [address], [place] [address] Sep, [facility] [address] [id number] [address] [place] [address], [place] [address] Sep, [facility] [address] [id number] [address] [place] [address], [place] [address] Sep, [facility] [address] [id number] [address] [place] [address], [place] [address] Aug, [facility] [address] [id number] [address] [place] [address], [place] [address] Aug, [facility] [address] [id number] [address] [place] [address], [place] [address] Jul, [facility] [address] [id number] [address] [place] [address], [place] [address] 14 Jul, 2013 [facility] [address] [id number] [address] [place] [address], [place] [address] Jun, [facility] [address] [id number] [address] [place] [address], [place] [address] Jun, [facility] [address] [id number] [address] [place] [address], [place] [address] Jun, [facility] [address] [id number] [address] [place] [address], [place] [address] Jun, [facility] [address] [id number] [address] [place] [address], [place] [address] May, [facility] [address] [id number] [address] [place] [address], [place] [address] May, [facility] [address] [id number] [address] [place] [address], [place] [address] May, [facility] [address] [id number] [address] [place] [address], [place] [address] May, [facility] [address] [id number] [address] [place] [address], [place] [address] May, [facility] [address] [id number] [address] [place] [address], [place] [address] May, [facility] [address] [id number] [address] [place] [address], [place] [address] Apr, [facility] [address] [id number] [address] [place] [address], [place] [address] Apr, [facility] [address] [id number] [address] [place] [address], [place] [address] Apr, [facility] [address] [id number] [address] [place] [address], [place] [address] Apr, [facility] [address] [id number] [address] [place] [address], [place] [address] Mar, [facility] [address] [id number] [address] [place] [address], [place] [address] Mar, [facility] [address] [id number] [address] [place] [address], [place] [address] Mar, [facility] [address] [id number] [address] [place] [address], [place] [address] Mar, [facility] [address] [id number] [address] [place] [address], [place] [address] Feb, [facility] [address] [facility] [address] [id number] [place] [id number] Jan, [facility] [address] [id number] [address] [place] [address], [place] [address] Jan, [facility] [address] [id number] [address] [place] [address], [place] [address] Dec, [facility] [address] [id number] [address] [place] [address], [place] [address] Dec, [facility] [address] [id number] [address] [place] [address], [place] [id number] Dec, [facility] [address] [facility] [address] [id number] [id number] Dec, [facility] [address] [id number] [address] [place] [address], [place] [id number] 17 Nov, 2012 [facility] [address] [id number] [address] [place] [id number] 14 Nov, 2012 [facility] [address] [id number] [address] [place] [address], [place] [id number] 12 Nov, 2012 [facility] [address] [id number] [address] [place] [address], [place] [id number] Nov, [facility] [address] [id number] [address] [place] [address], [place] [id number] Nov, [facility] [address] [id number] [address] [place] [id number] October, [facility] [address] [facility] [id number] [address] [place] [id number] October, [facility] [address] [facility] [id number] [address] [place] [id number] Aug, [facility] [address] [facility] [id number] [address] [place] [id number] Nov, IMMUNIZATIONS No Known Immunizations SOCIAL HISTORY Never Assessed REASON FOR VISIT f/u PLAN OF CARE Activity Details Follow Up Next available Reason:depres laly VITAL SIGNS MEDICATIONS Unknown Medications RESULTS No Results PROCEDURES Procedure Date Ordered Result Body Site Psychotherapy, patient &/family, 30 minutes, established pat ient September 19, 2017 INSTRUCTIONS MEDICATIONS ADMINISTERED No Known Medications [...]
--- OUTSIDE RECORDS SUMMARY | 2019-11-29 09:31 | XMS REPORT ---
Author Author Curt DIAZ [facility] Address [address] [place] [address] Care Team Providers Care Technician [employer] Name Role Phone JOE CHRIS Unavailable PROBLEMS Type Condition ICD9-CM Code CCM33-RF Code Onset Dates Condition S tatus SNOMED Code Problem Metabolic syndrome E88.81 Active 2 48055440 Problem Severe episode of recurrent major depressive disorder, without psychotic features F33.2 Active 33364732 Problem Anxiety F41.9 Active 94826957 Problem Depressive disorder, not elsewhere classified F32. 9 Active 16832957 Problem Insomnia G47.00 Active 013150297 Problem Sciatica, right side M54.31 Active [id number] Problem Mixed obsessional thoughts and acts F42.2 Active 67650757 Problem Vitamin D deficiency E55.9 Active 38771950 Problem DANIELA (generalized anxiety disorder) F41.1 Active 18406009 Problem BMI 45.0-49.9, adult Z68.42 Active 477959235 Problem Morbid obesity E66.01 Active 06081 6002 Problem Type II diabetes mellitus E11.9 Acti ve 56086771 Problem Hyperlipemia E78.5 Active 1219856 4 Problem Major depression F32.9 Active 370 972497 Problem Edema R60.9 Active 462189474 Problem Callus of foot L84 Active 29801 1005 Problem Benign essential hypertension I10 Active 9255070 Problem Recurrent major depressive disorder, in partial remission F33.41 Active 91778256 Problem Renal insufficiency N28.9 Active 276932034 Problem Acute bacterial conjunctivitis of left eye H10.32 Active 326779885 ALLERGIES Substance Reaction Event Type Date Status Gallagher Elm throat swells Drug Allergy Sep, Active Peanut (Diagnostic) throat swells Drug Allergy Sep, Active Egg White (Diagnostic) throat swells Drug Allergy Sep, Acti ve alternaria tenuis throat swells Non Drug Allergy Sep, Activ e Cows Milk throat swells Non Drug Allergy Sep, Active Wheat throat swells Non Drug Allergy Sep, Active Ragweed throat swells Non Drug Allergy Sep, Active ENCOUNTERS Encounter Location Date Diagnosis [facility] [address] [facility] [id number] [address] [place] [phone] Jan, [facility] [address] [facility] [id number] [address] [place] [id number] Jan, [facility] [address] [id number][place] [id number] Jan, [facility] [address] [facility] [id number] [address] [place] [id number] Dec, DANIELA (generalized anxiety dis order) F41.1 and Depressive disorder, not elsewhere classified F32.9 [facility] [address] [id number][place] [id number] Dec, Recurrent major depressive disorder, in partial remission F33.41 [facility] [address] [id number][place] [id number] Dec, [facility] [address] [id number], [place] [id number] Nov, [facility] [address] [address] [id number], [place] [id number] Nov, Recurrent major depressive disorder, in partial remission F33.41 [facility] [address] [facility] [id number] [address] [place] [phone] Nov, Recurrent major depressive d isorder, in partial remission F33.41 ; Mixed obsessional thoughts and acts F42.2 ; DANIELA (generalized anxiety disorder) F41.1 and BMI 45.0-49.9, adult Z68.42 [facility] [address] [id number], [place] [id number] Nov, [facility] [address] [id number], [place] [id number] Nov, Other conjunctivitis of both eyes H10.89 and Sciatica, right side M54.[address] [facility] [address] [id number], [place] [id number] Nov, [facility] [address] [id number], [place] [id number] Nov, [facility] [address] [id number], [place] [id number] October, [facility] [address] [id number], [place] [id number] October, [facility] [address] [facility] [id number] [address] [address] October, BMI 45.0-49.9, adult Z68.42 ; Mixed obsessional thoughts and acts F42.2 ; Recurrent major depressive disorder, in partial remission F33.41 and DANIELA (generalized anxiety disorder) F41.1 [facility] [address] [facility] [address] [id number], [place] [id number] October, Benign essential hypertension I10 ; Morb id obesity E66.01 and BMI 45.0-49.9, adult Z68.[address] [facility] [address] [id number], [place] [id number] Sep, [facility] [address] [id number], [place] [id number] Sep, [facility] [address] [id number], [place] [id number] Sep, [facility] [address] [id number], [place] [id number] Sep, Hospital discharge follow-up Z09 ; Aller gic rhinitis, unspecified seasonality, unspecified trigger J30.9 and Shortness of breath R06.02 [facility] [address] [id number], [place] [id number] Sep, Recurrent major depressive disorder, in partial remission F33.[address] [facility] [address] [id number], [place] [id number] Aug, Irritable mood R45.4 [place] [address] [facility] [id number] [address] [place] [id number] Aug, [place] [id number] [place] [address] [id number] Jul, Benign essential hypertension I10 ; Robert a R60.9 and Impacted cerumen of left ear H61.22 [place] [address] [place] [id number] [place] [id number] 14 Jul, 2017 Major depression F32.9 ; Rec urrent major depressive disorder, in partial remission F33.41 and Anxiety F41.9 [place] [address] [place] [id number] [place] [phone] Jun, Major depression F32.9 ; Rec urrent major depressive disorder, in partial remission F33.41 and Anxiety F41.[address] [place] [id number] [place] [address] [id number] Jun, Major depression F32.9 ; Morbid obesity E66.01 ; Irritable mood R45.4 ; Hand weakness R29.898 and Vitamin D deficiency E55.9 [place] [id number] [place] [address] [id number] Jun, [place] [id number] [place] [address] [id number] May, Major depression F32.9 [place] [address] [facility] [id number] [address] [place] [phone] May, Major depression F32.[address] [place] [address] [id number], [place] [id number] May, BMI 50.0-59.9, adult Z68.43 ; Major depr ession F32.9 ; Anxiety F41.9 ; Hypertrophic toenail L60.2 and Pain of left great toe M79.[address] [place] [id number] [place] [address] [id number] May, Recurrent major depressive disorder, in partial remission F33.41 [facility] [address] [facility] [id number] [address] [place] [id number] Apr, [facility] [address] [id number], [place] [id number] Apr, [facility] [address] [facility] [id number] [address] [place] [phone] Apr, Major depression F32.9 [facility] [address] [id number], [place] [id number] Apr, Severe episode of recurrent major depres sive disorder, without psychotic features F33.2 ; Anxiety F41.9 and Insomnia G47.00 [facility] [address] [id number], [place] [id number] Apr, [facility] [address] [facility] [id number] [address] [place] [id number] Apr, [facility] [address] [id number], [place] [id number] Apr, [facility] [address] [id number], [place] [id number] Mar, [facility] [address] [id number], [place] [id number] Mar, Allergic conjunctivitis of both eyes H10 .13 [facility] [address] [facility] [id number] [address] [place] [address] Mar, Major depression F32.9 [facility] [address] [id number], [place] [id number] Mar, Metabolic syndrome E88.81 ; History of g astric bypass Z98.890 ; Benign essential hypertension I10 and Allergic conjunctivitis of both eyes H10.13 [facility] [address] [facility] [id number] [address] [place] [address] Mar, Major depression F32.9 [facility] [address] [id number], [place] [id number] Feb, [facility] [address] [facility] [id number] [address] [place] [id number] Feb, Major depression F32.9 [facility] [address] [facility] [address] [id number], [place] [id number] Feb, Subacute maxillary sinusitis J01.00 and Bronchitis J40 [facility] [address] [facility] [id number] [address] [place] [phone] Feb, Major depressive disorder, r ecurrent, moderate F33.1 [facility] [address] [facility] [address] [id number], [place] [id number] Jan, [facility] [place] [address] [place] [address] A[id number] [place] [address] [id number] Jan, Acute non-recurrent maxillary sinusitis J01.00 and Skin tag L91.8 [facility] [address] [facility] [address] [id number], [place] [id number] Jan, Cough R05 and Sinus congestion R09.81 [facility] [address] [facility] [address] [id number], [place] [id number] Jan, [facility] [address] [place] [address] AVE [id number] [place] [address] [id number] Jan, Benign essential hypertension I10 ; Hist ory of gastric bypass Z98.890 and Nausea and vomiting in adult R11.2 [facility] [address] [facility] [id number] [address] [place] [id number] Jan, Major depressive disorder, r ecurrent, moderate F33.1 [facility] [address] [facility] [id number] [address] [place] [id number] Dec, Insomnia G47.00 ; Recurrent major depressive disorder, in partial remission F33.41 and Morbid obesity E66.01 [facility] [address] [facility] [address] [id number] [place] [address] [id number] Dec, [facility] [address] [id number], [place] [id number] Dec, Chronic bacterial conjunctivitis of left eye H10.[address] [id number], [place] [id number] Nov, [address] [id number], [place] [id number] Nov, Dental examination Z01.[id number] [place] [address] [id number] Nov, Benign essential hypertension I10 ; Hist ory of gastric bypass Z98.890 and Nausea and vomiting in adult R11.2 [place] [id number] [place] [id number] 13 Nov, 2016 Major depressive disorder, r ecurrent, moderate F33.1 ; Generalized anxiety disorder F41.1 and Insomnia due to other mental disorder F51.05 [place] [id number] [place] [id number] Nov, Recurrent major depressive d isorder, in partial remission F33.41 ; Insomnia G47.00 and Morbid obesity E66.01 [facility] [id number] [place] [id number] October, Abscess of left arm L02.414 [place] [id number] [place] [address] October, Morbid obesity E66.01 ; Lida r depression F32.9 and Recurrent major depressive disorder, in partial remission F33.41 [address] [id number], [place] [id number] Sep, Benign essential hypertension I10 ; Morb id obesity E66.01 ; S/P gastric bypass Z98.84 ; Abscess L02.91 and Chronic bacterial conjunctivitis of left eye H10.[address] [id number], [place] [id number] 17 Sep, 2016 Dental examination Z01.20 [place] [address] [place] [id number] [address] [place] [address] Sep, Morbid obesity E66.01 ; Lida r depression F32.9 and Recurrent major depressive disorder, in partial remission F33.41 [place] [address] [facility] [id number] [address] [place] [id number] Jul, [place] [address] [place] [id number] [address] [place] [id number] Jul, Major depressive disorder, r ecurrent, moderate F33.1 [place] [address] [facility] [id number] [address] [place] [id number] Jul, Major depressive disorder, r ecurrent, moderate F33.1 and Generalized anxiety disorder F41.1 [facility] [id number] [place] [address] [id number] Jul, Cough R05 [place] [address] [id number] 16 Jul, 2016 Morbid obesity E66.01 ; Lida r depression F32.9 and Recurrent major depressive disorder, in partial remission F33.41 [facility] [id number] [place] [address] [id number] Jul, [facility] [id number] [place] [address] [id number] Jul, [place] [id number] [place] [address] [id number] Jul, Gastroenteritis K52.9 and Cough R05 [facility] [id number] [place] [address] [id number] Jun, Acute bacterial conjunctivitis of left e ye H10.32 [place] [address] [facility] [id number] [address] [place] [id number] Jun, [place] [address] [facility] [id number] [address] [place] [id number] Jun, Recurrent major depressive d isorder, in partial remission F33.41 [facility] [address] [facility] [id number] [address] [place] [id number] 28 May, 2016 Major depression F32.9 and M orbid obesity E66.01 [facility] [address] [facility] [id number] [address] [place] [id number] May, [facility] [id number] [place] [address] [id number] May, Thrush B37.0 [facility] [address] [facility] [id number] [address] [place] [id number] Apr, Major depressive disorder, r ecurrent, moderate F33.1 [place] [address] [facility] [id number] [address] [place] [address] Apr, Insomnia G47.00 ; Major depr ession F32.9 and Recurrent major depressive disorder, in partial remission F33.41 [place] [address] [facility] [id number] [address] [place] [id number] Apr, [place] [address] [facility] [id number] [address] [place] [id number] 02 Apr, 2016 Major depression F32.9 and R ecurrent major depressive disorder, in partial remission F33.[address] [place] [address] [id number], [place] [id number] Mar, Benign essential hypertension I10 ; Morb id obesity E66.01 ; Impacted cerumen of both ears H61.23 ; Laceration of finger of right hand, initial encounter S61.219A and Encounter for immunization Z23 [facility] [address] [facility] [id number] [address] [place] [id number] Mar, [place] [address] [facility] [id number] [address] [place] [phone] Mar, [place] [address] [facility] [id number] [address] [place] [id number] Mar, [place] [id number] [place] [address] [id number] Feb, Nausea R11.0 ; Blood in the stool K92.1 and Benign essential hypertension I10 [facility] [address] [facility] [id number] [address] [place] [phone] Feb, Major depression F32.9 and R ecurrent major depressive disorder, in partial remission F33.41 [facility] [address] [id number], [place] [id number] Feb, [facility] [address] [id number], [place] [id number] Feb, Recurrent major depressive disorder, in partial remission F33.41 [facility] [id number] [place] [address] [id number] Jan, [facility] [id number] [place] [address] [id number] Jan, Benign essential hypertension I10 ; Robert a R60.9 and Hyperlipidemia, unspecified hyperlipidemia type E78.5 [facility] [address] [id number], [place] [id number] Jan, Recurrent major depressive disorder, in partial remission F33.41 [facility] [address] [id number] [place] [facility] [id number] Jan, [facility] [address] [id number], [place] [id number] Jan, [facility] [address] [id number], [place] [id number] Jan, [facility] [address] [facility] [id number] [address] [place] [id number] Jan, [facility] [address] [facility] [id number] [address] [place] [phone] Dec, [facility] [address] [facility] [id number] [address] [place] [phone] Nov, [facility] [address] [facility] [id number] [address] [place] [id number] Nov, Major depression F32.9 [facility] [address] [facility] [id number] [address] [place] [phone] Nov, [facility] [address] [facility] [id number] [address] [place] [id number] Nov, [place] [address] [facility] [id number] [address] [place] [id number] Nov, Major depressive disorder, r ecurrent episode, mild F33.0 and Anxiety F41.9 [facility] [id number] [place] [address] [id number] Nov, [place] [id number] [place] [address] [id number] October, Left elbow pain M25.522 and Other season al allergic rhinitis J30.[id number] [place] [address] [id number] October, [place] [address] [facility] [id number] [address] [place] [id number] October, Major depressive disorder, r ecurrent, moderate F33.1 [place] [address] [facility] [id number] [address] [place] [phone] October, Major depression F32.9 [place] [address] [facility] [id number] [address] [place] [phone] Sep, Tiro or callus L84 and Onych omycosis B35.1 [place] [address] [facility] [id number] [address] [place] [phone] Sep, Major depressive disorder, r ecurrent, moderate F33.1 [place] [address] [facility] [id number] [address] [place] [id number] Sep, Major depression F32.9 [place] [address] [facility] [id number] [address] [place] [id number] Sep, Moderate episode of recurren t major depressive disorder F33.1 [facility] [address] [id number], [place] [id number] Sep, Muscle strain T14.8 [facility] [address] [facility] [id number] [address] [place] [id number] Aug, Major depression F32.9 [facility] [address] [facility] [id number] [address] [place] [id number] Aug, Major depression F32.9 [facility] [address] [facility] [id number] [address] [place] [id number] Jul, Morbid obesity E66.01 and Ma cora depression F32.9 [facility] [address] [facility] [id number] [address] [place] [id number] Jul, Depression, major, recurrent , moderate F33.1 [facility] [address] [id number], [place] [id number] Jul, [facility] [address] [facility] [id number] [address] [place] [id number] Jul, [facility] [address] [facility] [id number] [address] [place] [id number] Jul, Major depression F32.9 and M orbid obesity E66.01 [facility] [address] [place] [address] [place]VE [id number] [id number] Jul, Type II diabetes mellitus E11.9 ; Callus of foot L84 ; Benign essential hypertension I10 and Renal insufficiency N28.9 [facility] [address] [facility] [id number] [address] [place] [id number] Jul, Depression, major, recurrent , moderate F33.1 [facility] [address] [facility] [id number] [address] [place] [id number] Jul, Major depression F32.9 [facility] [address] [facility] [id number] [address] [place] [id number] Jul, [facility] [address] [facility] [id number] [address] [place] [id number] Jun, Major depression F32.9 [place] [address] [facility] [id number] [address] [place] [id number] Jun, Major depressive disorder, r ecurrent, moderate F33.1 [place] [address] [facility] [id number] [address] [place] [id number] Jun, [place] [address] [place] [id number] [place] [phone] Jun, Major depressive disorder, r ecurrent, moderate F33.1 and Major depression F32.[address] [id number] [place] [id number] Jun, Type II diabetes mellitus E11.9 [place] [address] [place] [id number] [address] [place] [address] Jun, Depression, major, recurrent , moderate F33.1 [place] [address] [place] [id number] [address] [place] [address] May, Major depressive disorder, r ecurrent, moderate F33.1 [place] [address] [place] [id number] [address] [place] [address] May, [place] [address] [id number] [id number] May, Edema R60.9 [place] [address] [facility] [id number] [address] [place] [address] May, Insomnia G47.00 and Major de pression F32.9 [facility] [address] [id number][place] [id number] 15 May, 2015 Morbid obesity E66.01 ; Edema R60.9 ; Sh ortness of breath R06.02 ; Benign essential hypertension I10 and Renal insufficiency N28.9 [facility] [address] [id number] [id number] 14 May, 2015 Hyperlipemia 272.4 and Renal insufficien cy N28.9 [place] [address] [facility] [id number] [address] [place] [address] Apr, Major depression F32.9 [place] [address] [facility] [id number] [address] [place] [address] Apr, [place] [address] [facility] [id number] [address] [place] [address] Apr, Major depressive disorder, r ecurrent, moderate F33.1 [facility] [address] [id number][place] [id number] Apr, Type II diabetes mellitus E11.9 ; Benign essential hypertension I10 ; Edema R60.9 and Renal insufficiency N28.9 [place] [address] [facility] [id number] [address] [place] [address] Mar, Major depressive disorder, r ecurrent, moderate F33.1 [place] [address] [facility] [id number] [address] [place] [address] Mar, [place] [address] [facility] [id number] [address] [place] [address] Mar, Major depression F32.9 [facility] [id number] [place] [address] [id number] Mar, Morbid obesity E66.01 ; Benign essential hypertension I10 and Type II diabetes mellitus E11.9 [place] [address] [facility] [id number] [address] [place] [address] Feb, Major depressive disorder, r ecurrent, moderate F33.1 [place] [address] [facility] [id number] [address] [place] [address] Feb, Major depressive disorder, r ecurrent episode, in partial or unspecified remission 296.35 ; Anxiety state, unspecified 300.00 and Morbid obesity 278.01 [place] [address] [facility] [id number] [address] [place] [address] Feb, [facility] [address] [id number][place] [id number] 16 Feb, 2015 Vomiting 787.03 and Viral syndrome 079.9 9 [facility] [address] [place] [id number] [address] [place] [id number] 15 Feb, 2015 Major depression, recurrent 296.30 ; Generalized anxiety disorder 300.02 and No condition on [place] II V71.[address] [id number][place] [id number] Feb, Skin tag 701.9 [facility] [address] [facility] [id number] [address] [place] [address] Feb, [facility] [address] [place] [id number] [address] [place] [address] Jan, Depression, major, recurrent , moderate 296.[address] [id number], [place] [id number] Jan, Nausea and vomiting 787.01 ; Rib pain on right side 786.50 and Fall on or from sidewalk curb E880.1 [facility] [address] [facility] [id number] [address] [place] [address] Jan, [facility] [address] [place] [id number] [address] [place] [address] Jan, Major depressive disorder, r ecurrent episode, in partial or unspecified remission 296.35 and Anxiety state, unspecified 300.[address] [id number][place] [id number] Jan, [facility] [address] [facility] [id number] [address] [place] [address] Jan, Depression, major, recurrent , moderate 296.32 [facility] [address] [facility] [id number] [address] [place] [address] Jan, Major depression, recurrent 296.30 ; No condition on [place] II V71.09 and No condition on axis III V71.[address] [id number][place] [id number] Jan, Drug-induced nausea and vomiting 787.01 [place] [id number] [place] [address] Jan, Depression, major, recurrent , moderate 296.32 [place] [id number] [place] [address] Dec, Depression, major, recurrent , moderate 296.[address] [id number][place] [id number] Dec, Morbid obesity 278.01 ; Metabolic syndro me 277.7 ; Hyperlipemia 272.4 ; Benign essential hypertension 401.1 ; Dietary counseling V65.3 ; Exercise counseling V65.41 and Inflamed skin tag 701.9 [place] [id number] [address] [place] [address] Dec, Depression, major, recurrent , moderate 296.[address] [address] Dec, [address] [address] Dec, Major depression, recurrent 296.30 ; Anxiety, generalized 300.02 and No condition on [place] II V71.09 [place] [id number] [place] [address] Dec, Depression, major, recurrent , moderate 296.32 [place] [id number] [place] [address] Dec, Major depressive disorder, r ecurrent episode, moderate 296.[address] [address] Dec, Depression, major, recurrent , moderate 296.32 [place] [id number] [place] [address] Dec, Depression, major, recurrent , moderate 296.32 [place] [id number] [place] [address] Dec, Depression, major, recurrent , moderate 296.32 [place] [address] [address] Dec, Depression, major, recurrent , moderate 296.32 [place] [address] [address] Nov, Depression, major, recurrent , moderate 296.32 [place] [address] [address] Nov, Major depression 296.20 ; So cial phobia 300.23 and No condition on [place] II V71.09 [place] [address] [address] Nov, Depression, major, recurrent , moderate 296.[address] [address] Nov, Major depressive disorder, r ecurrent episode, moderate 296.32 and Generalized anxiety disorder 300.[address] [address] Nov, Depression, major, recurrent , moderate 296.32 [place] [address] [address] Nov, Depression, major, recurrent , moderate 296.32 [place] [address] [address] October, Generalized anxiety disorder 300.02 ; No condition on [place] II V71.09 and Major depressive disorder, recurrent 296.[address] [address] Sep, [place] [address] [address] Sep, [place] [address] [address] Aug, [facility] [address] [id number] [facility] [place] [address] 24 Aug, 2014 [facility] [place] [facility] [address] [id number] [address] [place] [address], [place] [address] 23 Aug, 2014 [facility] [place] [facility] [address] [id number] [address] [place] [address], [place] [address] 23 Aug, 2014 [facility] [address] [id number] [address] [place] [address], [place] [address] 20 Aug, 2014 [facility] [place] [address] [id number] [address] [place] [address], [place] [address] 20 Aug, 2014 [facility] [address] [id number] [address] [place] [address], [place] [address] 20 Aug, 2014 [facility] [place] [address] [id number] [address] [place] [address], [place] [address] 20 Aug, 2014 [facility] [place] [facility] [address] [id number] [address] [place] [address], [place] [address] 13 Aug, 2014 [facility] [place] [facility] [address] [id number] [address] [place] [address], [place] [address] 13 Aug, 2014 [facility] [address] [id number] [address] [place] [address], [place] [address] 13 Aug, 2014 [facility] [place] [facility] [address] [id number] [address] [place] [address], [place] [address] 13 Aug, 2014 [facility] [address] [id number] [address] [place] [address], [place] [address] 12 Aug, 2014 [facility] [place] [address] [id number] [address] [place] [address], [place] [address] 12 Aug, 2014 [facility] [place] [address] [id number] [address] [place] [address], [place] [address] 10 Aug, 2014 [facility] [place] [address] [id number] [address] [place] [address], [place] [address] 10 Aug, 2014 [facility] [place] [facility] [address] [id number] [address] [place] [address], [place] [address] Aug, [facility] [address] [id number] [address] [place] [address], [place] [address] Aug, [facility] [address] [id number] [address] [place] [address], [place] [address] Jul, [facility] [address] [id number] [address] [place] [address], [place] [address] Jul, [facility] [address] [id number] [address] [place] [address], [place] [address] Jul, [facility] [address] [id number] [address] [place] [address], [place] [address] Jul, [facility] [address] [id number] [address] [place] [address], [place] [address] Jul, [facility] [address] [id number] [address] [place] [address], [place] [address] Jul, [facility] [address] [id number] [address] [place] [address], [place] [address] Jun, [facility] [address] [id number] [address] [place] [address], [place] [address] Jun, [facility] [address] [id number] [address] [place] [address], [place] [address] Jun, [facility] [address] [id number] [address] [place] [address], [place] [address] Jun, [facility] [address] [id number] [address] [place] [address], [place] [address] Jun, [facility] [address] [id number] [address] [place] [address], [place] [address] Jun, [facility] [address] [id number] [address] [place] [address], [place] [address] Jun, [facility] [address] [id number] [address] [place] [address], [place] [address] Jun, [facility] [address] [id number] [address] [place] [address], [place] [address] Jun, [facility] [address] [id number] [address] [place] [address], [place] [address] Jun, [facility] [address] [id number] [address] [place] [address], [place] [address] Jun, [facility] [address] [id number] [address] [place] [address], [place] [address] Jun, [facility] [address] [id number] [place] [id number] Jun, [facility] [address] [id number] [address] [place] [address], [place] [address] Jun, [facility] [address] [id number] [address] [place] [address], [place] [address] Jun, [facility] [address] [id number] [address] [place] [address], [place] [address] Jun, [facility] [address] [id number] [address] [place] [address], [place] [address] May, [facility] [address] [id number] [address] [place] [address], [place] [address] May, [facility] [address] [id number] [address] [place] [address], [place] [address] May, [facility] [address] [id number] [address] [place] [address], [place] [address] May, [facility] [address] [id number] [address] [place] [address], [place] [address] Apr, [facility] [address] [id number] [address] [place] [address], [place] [address] Apr, [facility] [address] [id number] [address] [place] [address], [place] [address] Apr, [facility] [address] [id number] [address] [place] [address] Apr, [facility] [place] [facility] [address] [id number] [address] [place] [address], [place] [address] Apr, [facility] [place] [facility] [address] [id number] [address] [place] [address], [place] [address] Apr, [facility] [place] [facility] [address] [id number] [address] [place] [address], [place] [address] Apr, [facility] [place] [address] [id number] [address] [place] [address], [place] [address] Apr, [facility] [place] [facility] [address] [id number] [address] [place] [address], [place] [address] Apr, [facility] [place] [facility] [address] [id number] [address] [place] [address], [place] [address] Apr, [facility] [address] [id number] [address] [place] [address], [place] [address] Apr, [facility] [place] [address] [id number] [address] [place] [address], [place] [address] Apr, [facility] [address] [id number] [address] [place] [address], [place] [address] Apr, [facility] [address] [id number] [address] [place] [address], [place] [address] Apr, [facility] [address] [id number] [address] [place] [address] Apr, [facility] [place] [facility] [address] [id number] [address] [place] [address] Apr, [facility] [place] [facility] [address] [id number] [address] [place] [address], [place] [address] Apr, [facility] [place] [address] [id number] [address] [place] [address] Apr, [facility] [place] [facility] [address] [id number] [address] [place] [address] Apr, [facility] [place] [facility] [address] [id number] [address] [place] [address], [place] [address] Apr, [facility] [address] [id number] [address] [place] [address], [place] [address] Mar, [facility] [place] [facility] [address] [id number] [address] [place] [address], [place] [address] Mar, [facility] [address] [id number] [address] [place] [address], [place] [address] Mar, [facility] [place] [facility] [address] [id number] [address] [place] [address], [place] [address] Mar, [facility] [address] [id number] [address] [place] [address], [place] [address] Mar, [facility] [address] [id number] [address] [place] [address], [place] [address] Mar, [facility] [address] [id number] [address] [place] [address], [place] [address] Mar, [facility] [address] [id number] [address] [place] [address], [place] [address] Mar, [facility] [place] [facility] [address] [id number] [address] [place] [address], [place] [address] Mar, [facility] [address] [id number] [address] [place] [address], [place] [address] Mar, [facility] [place] [facility] [address] [id number] [address] [place] [address], [place] [address] Feb, [facility] [address] [id number] [address] [place] [address], [place] [address] Feb, [facility] [place] [address] [id number] [address] [place] [address], [place] [address] Feb, [facility] [address] [id number] [address] [place] [address], [place] [address] Feb, [facility] [address] [id number] [address] [place] [address], [place] [address] Jan, [facility] [address] [id number] [address] [place] [address], [place] [address] Jan, [facility] [address] [id number] [address] [place] [address], [place] [address] Jan, [facility] [address] [id number] [address] [place] [address], [place] [address] Jan, [facility] [address] [id number] [address] [place] [address], [place] [address] Jan, [facility] [address] [id number] [address] [place] [address], [place] [address] Jan, [facility] [address] [id number] [address] [place] [address], [place] [address] Dec, [facility] [address] [id number] [address] [place] [address], [place] [address] Dec, [facility] [address] [id number] [address] [place] [address], [place] [address] Nov, [facility] [address] [id number] [address] [place] [address], [place] [address] Nov, [facility] [address] [id number] [address] [place] [address], [place] [address] Nov, [facility] [place] [facility] [address] [id number] [address] [place] [address], [place] [address] Nov, [facility] [address] [id number] [address] [place] [address], [place] [address] Nov, [facility] [place] [address] [id number] [address] [place] [address], [place] [address] Nov, [facility] [address] [id number] [address] [place] [address], [place] [address] Sep, [facility] [place] [facility] [address] [id number] [address] [place] [address], [place] [address] Sep, [facility] [place] [facility] [address] [id number] [address] [place] [address], [place] [address] Sep, [facility] [address] [id number] [address] [place] [address], [place] [address] Sep, [facility] [address] [id number] [address] [place] [address], [place] [address] Aug, [facility] [address] [id number] [address] [place] [address], [place] [address] Aug, [facility] [address] [id number] [address] [place] [address], [place] [address] Jul, [facility] [address] [id number] [address] [place] [address], [place] [address] Jul, [facility] [address] [id number] [address] [place] [address], [place] [address] Jun, [facility] [address] [id number] [address] [place] [address], [place] [address] Jun, [facility] [address] [id number] [address] [place] [address], [place] [address] Jun, [facility] [address] [id number] [address] [place] [address], [place] [address] Jun, [facility] [address] [id number] [address] [place] [address], [place] [address] May, [facility] [address] [id number] [address] [place] [address], [place] [address] 24 May, 2013 [facility] [address] [id number] [address] [place] [address], [place] [address] May, [facility] [address] [id number] [address] [place] [address], [place] [address] May, [facility] [address] [id number] [address] [place] [address], [place] [address] May, [facility] [address] [id number] [address] [place] [address], [place] [address] May, [facility] [address] [id number] [address] [place] [address], [place] [address] Apr, [facility] [address] [id number] [address] [place] [address], [place] [address] Apr, [facility] [address] [id number] [address] [place] [address], [place] [address] Apr, [facility] [address] [id number] [address] [place] [address], [place] [address] Apr, [facility] [address] [id number] [address] [place] [address], [place] [address] Mar, [facility] [address] [id number] [address] [place] [address], [place] [address] Mar, [facility] [address] [id number] [address] [place] [address], [place] [address] Mar, [facility] [address] [id number] [address] [place] [address], [place] [address] Mar, [facility] [address] [id number] [address] [place] [address], [place] [address] Feb, [facility] [address] [id number] [place] [id number] Jan, [facility] [address] [id number] [address] [place] [address], [place] [address] Jan, [facility] [address] [id number] [address] [place] [address], [place] [address] Dec, [facility] [address] [id number] [address] [place] [address], [place] [address] Dec, [facility] [address] [id number] [address] [place] [address], [place] [address] Dec, [facility] [address] [id number] [place] [id number] Dec, [facility] [address] [id number] [address] [place] [address], [place] [address] Nov, [facility] [address] [id number] [address] [place] [id number] Nov, [facility] [address] [id number] [address] [place] [id number] Nov, [facility] [address] [id number] [address] [place] [id number] Nov, [facility] [address] [id number] [address] [place] [id number] Nov, [facility] [address] [id number] [address] [place] [id number] October, [facility] [address] [id number] [address] [place] [id number] October, [facility] [address] [id number] [address] [place] [id number] Aug, [facility] [address] [id number] [address] [place] [phone] Nov, IMMUNIZATIONS No Known Immunizations SOCIAL HISTORY Never Assessed REASON FOR VISIT Hospital f/u- 1 overnight at [facility], went in with CP, DX with inflammation- giv en baclofen Daly [facility] PLAN OF CARE Activity Details Follow Up prn Reason: VITAL SIGNS Height 71.5 in 2017-09-19 Weight 358.8 lbs 2017-09-19 Temperature 98.0 degrees Fahrenheit 2017-09-19 Heart Rate 66 bpm 2017-09-19 Respiratory Rate 18 2017-09-19 BMI 49.34 kg/m2 2017-09-19 Blood pressure systolic 141 mmHg 2017-09-19 Blood pressure diastolic 81 mmHg 2017-09-19 MEDICATIONS Medication Instructions Dosage Frequency Start Date End Date Duration S tatus Cetirizine HCl 10 mg Orally Once a day 1 tablet 24h Active Ibuprofen 200 mg Orally PRN 1 tablet with food or milk as needed Active Vitamin D-3 1000 UNIT Orally Once a day 2 capsule 24h Active Trazodone HCl 50 mg Orally Once a day- bedtime 1 tablet 13 Nov, 2016 Active Ketoconazole 2 % Externally Once a day 1 application to affected area 24 h Active Flonase 50 mcg/act nasally once per day 1 spray (50 mcg) in each nostril by intranasal route 2 times per day Nov, Active Baclofen 10 MG Orally Three times a day 1/2 tablet 8h Active Lasix 20 mg Orally Once a day as needed for swelling 1 tablet 22 Jul, 2017 Active BusPIRone HCl 10 mg Orally 3 times a day 1 tablet 8h 13 Apr, 2017 Active Viibryd 40 mg Orally Once a day 1 tablet with food 24h May, Active Montelukast Sodium 10 MG TAKE 1 TABLET BY MOUTH ONCE DAILY 90 Active Zofran 8 MG Orally Once a day 1 tablet 24h A ctive Atenolol 100 mg 1 tablet Once a day Orally Active Centrum - Active Omeprazole 40 MG Orally Once a day 1 tablet 24h 0 da ys Active Lamictal 100 MG Orally 2 times a day 1/2 tablet 12h Jun, Active Flovent HFA 110 mcg/act inhalation once per day 1-3 Puffs 1 time pe r day October, 0 Active Lisinopril 40 mg 1 tablet Once a day Orally Active RESULTS No Results PROCEDURES No Known [...] renal insufficiency Surgical History EGD- Esophagus stretching- 2014 Surgical History gastric sleeve 03/2016 Hospitalization History gastric sleeve Hospitalization History [facility] ER Trouble with left shoulder blade 08/2017
--- OUTSIDE RECORDS SUMMARY | 2019-11-29 09:31 | XMS REPORT ---
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 9 Active 60808231 Problem Insomnia G47.00 Active 075354566 Problem Sciatica, right side M54.31 Active [id number] Problem Mixed obsessional thoughts and acts F42.2 Active 14654911 Problem Vitamin D deficiency E55.9 Active 62241859 Problem DANIELA (generalized anxiety disorder) F41.1 Active 44850491 Problem BMI 45.0-49.9, adult Z68.42 Active 782948469 Problem Morbid obesity E66.01 Active 03331 6002 Problem Type II diabetes mellitus E11.9 Acti ve 24775790 Problem Hyperlipemia E78.5 Active 5048261 4 Problem Major depression F32.9 Active 370 763710 Problem Edema R60.9 Active 154213789 Problem Callus of foot L84 Active 57206 1005 Problem Benign essential hypertension I10 Active 5540663 Problem Recurrent major depressive disorder, in partial remission F33.41 Active 82605126 Problem Renal insufficiency N28.9 Active 661363302 Problem Acute bacterial conjunctivitis of left eye H10.32 Active 707685603 ALLERGIES No Information ENCOUNTERS Encounter Location Date Diagnosis [facility] [address] [facility] [id number] [address] [place] [phone] Jan, [facility] [address] [facility] [id number] [address] [place] [address] Jan, [facility] [address] [id number], [place] [id number] Jan, [facility] [address] [facility] [id number] [address] [place] [address] Dec, DANIELA (generalized anxiety dis order) F41.1 and Depressive disorder, not elsewhere classified F32.[address] [facility] [address] [id number], [place] [id number] Dec, Recurrent major depressive disorder, in partial remission F33.[address] [facility] [address] [id number], [place] [id number] Dec, [facility] [address] [id number], [place] [id number] Nov, [facility] [address] [id number], [place] [id number] Nov, Recurrent major depressive disorder, in partial remission F33.41 [facility] [address] [facility] [id number] [address] [place] [address] Nov, Recurrent major depressive d isorder, in partial remission F33.41 ; Mixed obsessional thoughts and acts F42.2 ; DANIELA (generalized anxiety disorder) F41.1 and BMI 45.0-49.9, adult Z68.[address] [facility] [address] [id number], [place] [id number] Nov, [facility] [address] [id number], [place] [id number] Nov, Other conjunctivitis of both eyes H10.89 and Sciatica, right side M54.[address] [facility] [address] [id number] [place] [id number] Nov, [facility] [address] [id number], [place] [id number] Nov, [facility] [address] [id number], [place] [id number] October, [facility] [address] [id number], [place] [id number] October, [facility] [address] [place] [id number] [address] [place] [address] October, BMI 45.0-49.9, adult Z68.42 ; Mixed obsessional thoughts and acts F42.2 ; Recurrent major depressive disorder, in partial remission F33.41 and DANIELA (generalized anxiety disorder) F41.1 [facility] [address] [id number], [place] [id number] October, Benign essential hypertension I10 ; Morb id obesity E66.01 and BMI 45.0-49.9, adult Z68.42 [facility] [id number], [place] [id number] Sep, [facility] [id number], [place] [id number] Sep, [facility] [id number], [place] [id number] Sep, [facility] [id number], [place] [id number] Sep, Hospital discharge follow-up Z09 ; Aller gic rhinitis, unspecified seasonality, unspecified trigger J30.9 and Shortness of breath R06.02 [facility] [employer] [place] [address] AVE [id number], [place] [id number] Sep, Recurrent major depressive disorder, in partial remission F33.41 [facility] [id number], [place] [id number] Aug, Irritable mood R45.4 [facility] [address] [facility] [id number] [address] [place] [address] Aug, [facility] [id number], [place] [id number] Jul, Benign essential hypertension I10 ; Robert a R60.9 and Impacted cerumen of left ear H61.22 [facility] [address] [place] [id number] [address] [place] [phone] 14 Jul, 2017 Major depression F32.9 ; Rec urrent major depressive disorder, in partial remission F33.41 and Anxiety F41.9 [place] [address] [facility] [id number] [address] [place] [address] Jun, Major depression F32.9 ; Rec urrent major depressive disorder, in partial remission F33.41 and Anxiety F41.9 [facility] [address] [id number], [place] [id number] Jun, Major depression F32.9 ; Morbid obesity E66.01 ; Irritable mood R45.4 ; Hand weakness R29.898 and Vitamin D deficiency E55.9 [facility] [id number] [place] [address] [id number] Jun, [place] [id number] [place] [address] [id number] May, Major depression F32.9 [place] [address] [facility] [id number] [address] [place] [address] May, Major depression F32.9 [facility] [id number] [place] [address] [id number] May, BMI 50.0-59.9, adult Z68.43 ; Major depr ession F32.9 ; Anxiety F41.9 ; Hypertrophic toenail L60.2 and Pain of left great toe M79.[address] [place] [id number] [place] [address] [id number] May, Recurrent major depressive disorder, in partial remission F33.41 [place] [address] [facility] [id number] [address] [place] [address] Apr, [facility] [id number] [place] [address] [id number] Apr, [place] [address] [facility] [id number] [address] [place] [address] Apr, Major depression F32.9 [facility] [address] [id number], [place] [id number] Apr, Severe episode of recurrent major depres sive disorder, without psychotic features F33.2 ; Anxiety F41.9 and Insomnia G47.00 [facility] [address] [id number], [place] [id number] Apr, [facility] ([facility] [address] [place] [address] Apr, [facility] [address] [id number], [place] [id number] Apr, [facility] [address] [id number], [place] [id number] Mar, [facility] [address] [id number], [place] [id number] Mar, Allergic conjunctivitis of both eyes H10 .13 [facility] [address] [place] [id number] [address] [place] [address] Mar, Major depression F32.9 [facility] [address] [id number], [place] [id number] Mar, Metabolic syndrome E88.81 ; History of g astric bypass Z98.890 ; Benign essential hypertension I10 and Allergic conjunctivitis of both eyes H10.13 [facility] [address] [place] [id number] [address] [place] [address] Mar, Major depression F32.9 [facility] [address] [id number], [place] [id number] Feb, [facility] [address] [place] [id number] [address] [place] [address] Feb, Major depression F32.9 [facility] [address] [id number], [place] [id number] Feb, Subacute maxillary sinusitis J01.00 and Bronchitis J40 [facility] [address] [place] [address] Feb, Major depressive disorder, r ecurrent, moderate F33.1 [facility] [address] [id number], [place] [id number] Jan, [facility] [address] [id number], [place] [id number] Jan, Acute non-recurrent maxillary sinusitis J01.00 and Skin tag L91.8 [facility] [address] [id number], [place] [id number] Jan, Cough R05 and Sinus congestion R09.[address] [facility] [address] [id number], [place] [id number] Jan, [facility] [address] [facility] [address] [id number], [place] [id number] Jan, Benign essential hypertension I10 ; Hist ory of gastric bypass Z98.890 and Nausea and vomiting in adult R11.2 [place] [address] [facility] [id number] [address] [place] [address] Jan, Major depressive disorder, r ecurrent, moderate F33.1 [place] [address] [facility] [id number] [address] [place] [address] Dec, Insomnia G47.00 ; Recurrent major depressive disorder, in partial remission F33.41 and Morbid obesity E66.01 [facility] [address] [id number], [place] [id number] Dec, [facility] [address] [id number], [place] [id number] Dec, Chronic bacterial conjunctivitis of left eye H10.402 [facility] [address] [id number], [place] [id number] Nov, [facility] [address] [id number], [place] [id number] Nov, Dental examination Z01.[address] [facility] [address] [id number], [place] [id number] Nov, Benign essential hypertension I10 ; Hist ory of gastric bypass Z98.890 and Nausea and vomiting in adult R11.2 [place] [address] [place] [id number] [address] [place] [address] Nov, Major depressive disorder, r ecurrent, moderate F33.1 ; Generalized anxiety disorder F41.1 and Insomnia due to other mental disorder F51.05 [place] [address] [place] [id number] [address] [place] [address] Nov, Recurrent major depressive d isorder, in partial remission F33.41 ; Insomnia G47.00 and Morbid obesity E66.01 [facility] [address] [id number] [id number] October, Abscess of left arm L02.414 [place] [id number] [address] [place] [address] October, Morbid obesity E66.01 ; Lida r depression F32.9 and Recurrent major depressive disorder, in partial remission F33.41 [place] [address] [facility] [id number] [place] [address] [id number] Sep, Benign essential hypertension I10 ; Morb id obesity E66.01 ; S/P gastric bypass Z98.84 ; Abscess L02.91 and Chronic bacterial conjunctivitis of left eye H10.[id number] [place] [address] [id number] Sep, Dental examination Z01.[address] [id number] [address] [place] [address] Sep, Morbid obesity E66.01 ; Lida r depression F32.9 and Recurrent major depressive disorder, in partial remission F33.41 [place] [address] [place] [id number] [address] [place] [address] Jul, [place] [id number] [address] [place] [address] Jul, Major depressive disorder, r ecurrent, moderate F33.1 [place] [address] [facility] [id number] [address] [place] [address] Jul, Major depressive disorder, r ecurrent, moderate F33.1 and Generalized anxiety disorder F41.[address] [place] [id number] [place] [address] [id number] Jul, Cough R05 [place] [address] [facility] [id number] [address] [place] [address] Jul, Morbid obesity E66.01 ; Lida r depression F32.9 and Recurrent major depressive disorder, in partial remission F33.[address] [place] [id number] [place] [address] [id number] Jul, [place] [id number] [place] [address] [id number] Jul, [place] [id number] [place] [address] [id number] Jul, Gastroenteritis K52.9 and Cough R05 [id number] [place] [address] [id number] Jun, Acute bacterial conjunctivitis of left e ye H10.32 [place] [address] [place] [id number] [address] [place] [address] Jun, [place] [address] [place] [id number] [address] [place] [address] Jun, Recurrent major depressive d isorder, in partial remission F33.41 [place] [address] [facility] [id number] [address] [place] [phone] May, Major depression F32.9 and M orbid obesity E66.01 [place] [address] [place] [id number] [address] [place] [address] May, [place] [address] [id number] [place] [address] [id number] May, Thrush B37.0 [facility] [address] [facility] [id number] [address] [place] [address] Apr, Major depressive disorder, r ecurrent, moderate F33.1 [facility] [address] [facility] [id number] [address] [place] [address] Apr, Insomnia G47.00 ; Major depr ession F32.9 and Recurrent major depressive disorder, in partial remission F33.41 [facility] [address] [facility] [id number] [address] [place] [address] Apr, [place] [address] [facility] [id number] [address] [place] [address] Apr, Major depression F32.9 and R ecurrent major depressive disorder, in partial remission F33.41 [facility] [address] [id number], [place] [id number] Mar, Benign essential hypertension I10 ; Morb id obesity E66.01 ; Impacted cerumen of both ears H61.23 ; Laceration of finger of right hand, initial encounter S61.219A and Encounter for immunization Z23 [facility] [address] [facility] [id number] [address] [place] [address] Mar, [place] [address] [facility] [id number] [address] [place] [address] Mar, [place] [address] [facility] [id number] [address] [place] [address] Mar, [facility] [address] [id number], [place] [id number] Feb, Nausea R11.0 ; Blood in the stool K92.1 and Benign essential hypertension I10 [facility] [address] [facility] [id number] [address] [place] [address] Feb, Major depression F32.9 and R ecurrent major depressive disorder, in partial remission F33.41 [facility] [address] [id number], [place] [id number] Feb, [facility] [address] [id number], [place] [id number] Feb, Recurrent major depressive disorder, in partial remission F33.41 [facility] [address] [id number], [place] [id number] Jan, [facility] [address] [id number], [place] [id number] Jan, Benign essential hypertension I10 ; Robert a R60.9 and Hyperlipidemia, unspecified hyperlipidemia type E78.5 [facility] [address] [id number], [place] [id number] Jan, Recurrent major depressive disorder, in partial remission F33.41 [facility] [place] [address] [id number] [place] [id number] Jan, [facility] [address] [id number], [place] [id number] Jan, [facility] [address] [id number], [place] [id number] Jan, [facility] [address] [facility] [id number] [address] [place] [address] Jan, [facility] [address] [facility] [id number] [address] [place] [address] Dec, [facility] [address] [facility] [id number] [address] [place] [address] Nov, [facility] [address] [facility] [id number] [address] [place] [address] Nov, Major depression F32.9 [facility] [address] [facility] [id number] [address] [place] [address] Nov, [facility] [address] [facility] [id number] [address] [place] [address] Nov, [facility] [address] [facility] [id number] [address] [place] [address] Nov, Major depressive disorder, r ecurrent episode, mild F33.0 and Anxiety F41.9 [place] [address] [facility] [address] [id number], [place] [id number] Nov, [id number] [place] [address] [id number] October, Left elbow pain M25.522 and Other season al allergic rhinitis J30.[id number] [place] [address] [id number] October, [facility] [address] [facility] [id number] [address] [place] [address] October, Major depressive disorder, r ecurrent, moderate F33.1 [place] [address] [facility] [id number] [address] [place] [address] October, Major depression F32.9 [place] [address] [place] [id number] [address] [place] [address] Sep, [place] or callus L84 and Onych omycosis B35.1 [place] [address] [facility] [id number] [address] [place] [address] Sep, Major depressive disorder, r ecurrent, moderate F33.1 [facility] [address] [facility] [id number] [address] [place] [address] Sep, Major depression F32.9 [place] [address] [facility] [id number] [address] [place] [address] Sep, Moderate episode of recurren t major depressive disorder F33.[address] [id number], [place] [id number] Sep, Muscle strain T14.8 [facility] [address] [facility] [id number] [address] [place] [address] Aug, Major depression F32.9 [facility] [address] [facility] [id number] [address] [place] [address] Aug, Major depression F32.9 [facility] [address] [facility] [id number] [address] [place] [address] 24 Jul, 2015 Morbid obesity E66.01 and Ma cora depression F32.9 [facility] [address] [facility] [id number] [address] [place] [address] 24 Jul, 2015 Depression, major, recurrent , moderate F33.[address] [id number], [place] [id number] Jul, [facility] [address] [facility] [id number] [address] [place] [address] Jul, [facility] [address] [facility] [id number] [place] [address] 16 Jul, 2015 Major depression F32.9 and M orbid obesity E66.[address] [id number] [place] [address] [id number] 11 Jul, 2015 Type II diabetes mellitus E11.9 ; Callus of foot L84 ; Benign essential hypertension I10 and Renal insufficiency N28.9 [facility] [address] [facility] [id number] [address] [place] [address] 09 Jul, 2015 Depression, major, recurrent , moderate F33.1 [facility] [address] [facility] [id number] [address] [place] [address] 05 Jul, 2015 Major depression F32.9 [facility] [address] [place] [id number] [address] [place] [address] Jul, [facility] [address] [facility] [id number] [address] [place] [address] Jun, Major depression F32.9 [facility] [address] [facility] [id number] [address] [place] [address] Jun, Major depressive disorder, r ecurrent, moderate F33.1 [facility] [address] [place] [id number] [address] [place] [address] Jun, [facility] [address] [facility] [id number] [address] [place] [phone] 08 Jun, 2015 Major depressive disorder, r ecurrent, moderate F33.1 and Major depression F32.[address] [id number], [place] [id number] Jun, Type II diabetes mellitus E11.9 [place] [address] [address] [facility] [id number] [address] [place] [id number] Jun, Depression, major, recurrent , moderate F33.1 [place] [address] [address] [facility] [id number] [address] [place] [phone] May, Major depressive disorder, r ecurrent, moderate F33.1 [place] [address] [address] [place] [id number] [address] [place] [id number] May, [id number] [place] [id number] May, Edema R60.9 [place] [id number] [address] [place] [id number] May, Insomnia G47.00 and Major de pression F32.[address] [id number] [place] [id number] May, 2015 Morbid obesity E66.01 ; Edema R60.9 ; Sh ortness of breath R06.02 ; Benign essential hypertension I10 and Renal insufficiency N28.[address] [id number] [place] [id number] May, Hyperlipemia 272.4 and Renal insufficien cy N28.9 [place] [address] [address] [place] [id number] [address] [place] [id number] Apr, Major depression F32.9 [place] [address] [address] [place] [id number] [address] [place] [id number] Apr, [place] [address] [address] [place] [id number] [address] [place] [id number] Apr, Major depressive disorder, r ecurrent, moderate F33.1 [facility] [address] [id number] [id number] Apr, Type II diabetes mellitus E11.9 ; Benign essential hypertension I10 ; Edema R60.9 and Renal insufficiency N28.9 [place] [address] [address] [facility] [id number] [address] [place] [id number] Mar, Major depressive disorder, r ecurrent, moderate F33.1 [place] [address] [address] [facility] [id number] [address] [place] [phone] Mar, [place] [address] [address] [facility] [id number] [address] [place] [id number] Mar, Major depression F32.[address] [id number] [id number] Mar, Morbid obesity E66.01 ; Benign essential hypertension I10 and Type II diabetes mellitus E11.9 [place] [address] [address] [place] [id number] [address] [place] [place] [id number] Feb, Major depressive disorder, r ecurrent, moderate F33.1 [place] [address] [address] [facility] [id number] [address] [place] [address] Feb, Major depressive disorder, r ecurrent episode, in partial or unspecified remission 296.35 ; Anxiety state, unspecified 300.00 and Morbid obesity 278.01 [place] [address] [address] [facility] [id number] [address] [place] [address] Feb, [place] [address] [id number] [id number] Feb, Vomiting 787.03 and Viral syndrome 079.[address] [id number] [address] [place] [address] 15 Feb, 2015 Major depression, recurrent 296.30 ; Generalized anxiety disorder 300.02 and No condition on Lawrence II V71.09 [facility] [address] [id number] [id number] Feb, Skin tag 701.9 [facility] [address] [facility] [id number] [address] [place] [address] Feb, [facility] [address] [facility] [id number] [address] [place] [address] Jan, Depression, major, recurrent , moderate 296.32 [facility] [address] [facility] [address] [id number] [place] [id number] Jan, Nausea and vomiting 787.01 ; Rib pain on right side 786.50 and Fall on or from sidewalk curb E880.1 [facility] [address] [facility] [id number] [address] [place] [address] Jan, [facility] [address] [place] [id number] [address] [place] [address] Jan, Major depressive disorder, r ecurrent episode, in partial or unspecified remission 296.35 and Anxiety state, unspecified 300.00 [facility] [id number] [place] [id number] Jan, [facility] [address] [facility] [id number] [address] [place] [address] Jan, Depression, major, recurrent , moderate 296.32 [facility] [address] [place] [id number] [address] [place] [address] Jan, Major depression, recurrent 296.30 ; No condition on Lawrence II V71.09 and No condition on axis III V71.09 [facility] [address] [facility] [id number] [place] [id number] Jan, Drug-induced nausea and vomiting 787.01 [facility] [address] [facility] [id number] [address] [place] [address] Jan, Depression, major, recurrent , moderate 296.32 [facility] [address] [facility] [id number] [address] [place] [address] Dec, Depression, major, recurrent , moderate 296.32 [place] [id number] [facility] [address] [address] [id number] [place] [id number] Dec, Morbid obesity 278.01 ; Metabolic syndro me 277.7 ; Hyperlipemia 272.4 ; Benign essential hypertension 401.1 ; Dietary counseling V65.3 ; Exercise counseling V65.41 and Inflamed skin tag 701.[address] [address] Dec, Depression, major, recurrent , moderate 296.[address] [address] Dec, [address] [address] Dec, Major depression, recurrent 296.30 ; Anxiety, generalized 300.02 and No condition on Lawrence II V71.[address] [address] Dec, Depression, major, recurrent , moderate 296.[address] [address] Dec, Major depressive disorder, r ecurrent episode, moderate 296.32 [place] [id number] [address] [place] [address] Dec, Depression, major, recurrent , moderate 296.32 [place] [id number] [address] [place] [address] Dec, Depression, major, recurrent , moderate 296.32 [place] [id number] [address] [place] [address] Dec, Depression, major, recurrent , moderate 296.[address] [address] Dec, Depression, major, recurrent , moderate 296.32 [place] [id number] [address] [place] [address] Nov, Depression, major, recurrent , moderate 296.32 [facility] [address] [facility] [id number] [address] [place] [address] 16 Nov, 2014 Major depression 296.20 ; So cial phobia 300.23 and No condition on Lawrence II V71.09 [facility] [address] [facility] [id number] [address] [place] [address] 16 Nov, 2014 Depression, major, recurrent , moderate 296.32 [facility] [address] [facility] [id number] [address] [place] [id number] Nov, Major depressive disorder, r ecurrent episode, moderate 296.32 and Generalized anxiety disorder 300.02 [facility] [address] [place] [id number] [place] [phone] 09 Nov, 2014 Depression, major, recurrent , moderate 296.32 [facility] [address] [place] [id number] [address] [place] [address] Nov, Depression, major, recurrent , moderate 296.32 [facility] [address] [place] [id number] [address] [place] [address] October, Generalized anxiety disorder 300.02 ; No condition on Lawrence II V71.09 and Major depressive disorder, recurrent 296.30 [facility] [address] [place] [id number] [address] [place] [id number] 14 Sep, 2014 [facility] [address] [place] [id number] [address] [place] [address] Sep, [facility] [address] [place] [id number] [address] [place] [id number] 24 Aug, 2014 [facility] [address] [place] [id number] [address] [place] [id number] Aug, [facility] [address] [place] [id number] [address] [place] [phone] Aug, [facility] [address] [place] [id number] [address] [place] [phone] Aug, [facility] [address] [id number] [facility] [place] [address] 20 Aug, 2014 [facility] [address] [id number] [address] [place] [address], [place] [address] 20 Aug, 2014 [facility] [address] [id number] [address] [place] [address], [place] [address] 20 Aug, 2014 [facility] [address] [id number] [address] [place] [address], [place] [address] 20 Aug, 2014 [facility] [address] [id number] [address] [place] [address], [place] [address] 13 Aug, 2014 [facility] [address] [id number] [address] [place] [address], [place] [address] 13 Aug, 2014 [facility] [address] [id number] [address] [place] [address], [place] [address] 13 Aug, 2014 [facility] [address] [id number] [address] [place] [address], [place] [address] 13 Aug, 2014 [facility] [address] [id number] [address] [place] [address], [place] [address] 12 Aug, 2014 [facility] [address] [id number] [address] [place] [address], [place] [address] 12 Aug, 2014 [facility] [address] [id number] [address] [place] [address], [place] [address] 10 Aug, 2014 [facility] [address] [id number] [address] [place] [address], [place] [address] 10 Aug, 2014 [facility] [address] [id number] [address] [place] [address], [place] [address] Aug, [facility] [address] [id number] [address] [place] [address], [place] [address] Aug, [facility] [address] [id number] [address] [place] [address], [place] [address] 24 Jul, 2014 [facility] [address] [id number] [address] [place] [address], [place] [address] Jul, [facility] [address] [id number] [address] [place] [address], [place] [address] Jul, [facility] [address] [id number] [address] [place] [address], [place] [address] Jul, [facility] [address] [id number] [address] [place] [address], [place] [address] Jul, [facility] [address] [id number] [address] [place] [address], [place] [address] Jul, [facility] [address] [id number] [address] [place] [address], [place] [address] Jun, [facility] [address] [id number] [address] [place] [address], [place] [address] Jun, [facility] [address] [id number] [address] [place] [address], [place] [address] Jun, [facility] [address] [id number] [address] [place] [address], [place] [address] Jun, [facility] [address] [id number] [address] [place] [address], [place] [address] Jun, [facility] [address] [id number] [address] [place] [address], [place] [address] Jun, [facility] [address] [id number] [address] [place] [address], [place] [address] Jun, [facility] [address] [id number] [address] [place] [address], [place] [address] Jun, [facility] [address] [id number] [address] [place] [address], [place] [address] Jun, [facility] [address] [id number] [address] [place] [address], [place] [address] Jun, [facility] [address] [id number] [address] [place] [address], [place] [address] Jun, [facility] [address] [id number] [address] [place] [address], [place] [address] Jun, [facility] [address] [id number] FANNYKiesha S [id number] Jun, [facility] [address] [id number] [address] [place] [id number] Jun, [facility] [address] [id number] [address] [place] [address], [place] [address] Jun, [facility] [address] [id number] [address] [place] [address], [place] [address] Jun, [facility] [address] [id number] [address] [place] [address], [place] [address] May, [facility] [address] [id number] [address] [place] [address], [place] [address] May, [facility] [address] [id number] [address] [place] [id number] May, [facility] [address] [id number] [address] [place] [address], [place] [address] May, [facility] [address] [id number] [address] [place] [address], [place] [address] Apr, [facility] [address] [id number] [address] [place] [address], [place] [address] Apr, [facility] [address] [id number] [address] [place] [address], [place] [address] Apr, [facility] [address] [id number] [address] [place] [id number] Apr, [facility] [address] [id number] [address] [place] [id number] Apr, [facility] [address] [id number] [address] [place] [address], [place] [address] Apr, [facility] [address] [id number] [address] [place] [address], [place] [address] Apr, [facility] [address] [id number] [address] [place] [address], [place] [address] Apr, [facility] [address] [id number] [address] [place] [address], [place] [address] Apr, [facility] [address] [id number] [address] [place] [address], [place] [address] Apr, [facility] [address] [id number] [address] [place] [address], [place] [address] Apr, [facility] [address] [id number] [address] [place] [address], [place] [address] Apr, [facility] [address] [id number] [address] [place] [address], [place] [address] Apr, [facility] [address] [id number] [address] [place] [address], [place] [address] Apr, [facility] [address] [id number] [address] [place] [address], [place] [address] Apr, [facility] [address] [id number] [address] [place] [address], [place] [address] Apr, [facility] [address] [id number] [address] [place] [address], [place] [address] Apr, [facility] [address] [id number] [address] [place] [address], [place] [address] Apr, [facility] [address] [id number] [address] [place] [address], [place] [address] Apr, [facility] [address] [id number] [address] [place] [address], [place] [address] Apr, [facility] [address] [id number] [address] [place] [address], [place] [address] Mar, [facility] [address] [id number] [address] [place] [address], [place] [address] Mar, [facility] [address] [id number] [address] [place] [address], [place] [address] Mar, [facility] [address] [id number] [address] [place] [address], [place] [address] Mar, [facility] [address] [id number] [address] [place] [address], [place] [address] Mar, [facility] [address] [id number] [address] [place] [address], [place] [address] Mar, [facility] [address] [id number] [address] [place] [address], [place] [address] Mar, [facility] [address] [id number] [address] [place] [address], [place] [address] Mar, [facility] [address] [id number] [address] [place] [address], [place] [address] Mar, [facility] [address] [id number] [address] [place] [address], [place] [address] Mar, [facility] [address] [id number] [address] [place] [address], [place] [address] Feb, [facility] [address] [id number] [address] [place] [address], [place] [address] Feb, [facility] [address] [id number] [address] [place] [address], [place] [address] Feb, [facility] [address] [id number] [address] [place] [address], [place] [address] Feb, [facility] [address] [id number] [address] [place] [address], [place] [address] Jan, [facility] [address] [id number] [address] [place] [address], [place] [address] Jan, [facility] [address] [id number] [address] [place] [address], [place] [address] Jan, [facility] [address] [id number] [address] [place] [address], [place] [address] Jan, [facility] [address] [id number] [facility] [place] [address] Jan, [facility] [address] [id number] [address] [place] [address], [place] [address] Jan, [facility] [address] [id number] [address] [place] [address], [place] [address] Dec, [facility] [address] [id number] [address] [place] [address], [place] [address] Dec, [facility] [address] [id number] [address] [place] [address], [place] [address] Nov, [facility] [address] [id number] [address] [place] [address], [place] [address] Nov, [facility] [address] [id number] [address] [place] [address], [place] [address] Nov, [facility] [address] [id number] [address] [place] [address], [place] [address] Nov, [facility] [address] [id number] [address] [place] [address], [place] [address] Nov, [facility] [address] [id number] [address] [place] [address], [place] [address] Nov, [facility] [address] [id number] [address] [place] [address], [place] [address] Sep, [facility] [address] [id number] [address] [place] [address], [place] [address] Sep, [facility] [address] [id number] [address] [place] [address], [place] [address] Sep, [facility] [address] [id number] [address] [place] [address], [place] [address] Sep, [facility] [address] [id number] [address] [place] [address], [place] [address] Aug, [facility] [address] [id number] [address] [place] [address], [place] [address] Aug, [facility] [address] [id number] [address] [place] [address], [place] [address] Jul, [facility] [address] [id number] [address] [place] [address], [place] [address] Jul, [facility] [address] [id number] [address] [place] [address], [place] [address] Jun, [facility] [address] [id number] [address] [place] [address], [place] [address] Jun, [facility] [address] [id number] [address] [place] [address], [place] [address] Jun, [facility] [address] [id number] [address] [place] [address], [place] [address] Jun, [facility] [address] [id number] [address] [place] [address], [place] [address] May, [facility] [address] [id number] [address] [place] [address], [place] [address] May, [facility] [address] [id number] [address] [place] [address], [place] [address] May, [facility] [address] [id number] [address] [place] [address], [place] [address] May, [facility] [address] [id number] [address] [place] [address], [place] [address] May, [facility] [address] [id number] [address] [place] [address], [place] [address] May, [facility] [address] [id number] [address] [place] [address], [place] [address] Apr, [facility] [address] [id number] [address] [place] [address], [place] [address] Apr, [facility] [address] [id number] [address] [place] [address], [place] [address] Apr, [facility] [address] [id number] [address] [place] [address] Apr, [facility] [address] [id number] [address] [place] [address], [place] [id number] Mar, [facility] [address] [id number] [address] [place] [phone] Mar, [facility] [address] [id number] [address] [place] [id number] Mar, [facility] [address] [id number] [address] [place] [phone] Mar, [facility] [address] [id number] [address] [place] [phone] Feb, [facility] [address] [id number] [place] [id number] Jan, [facility] [address] [id number] [address] [place] [id number] Jan, [facility] [address] [id number] [address] [place] [phone] Dec, [facility] [address] [id number] [address] [place] [phone] Dec, [facility] [address] [id number] [address] [place] [id number] Dec, [facility] [address] [id number] [place] [id number] Dec, [facility] [address] [id number] [address] [place] [phone] Nov, [facility] [address] [id number] [address] [place] [address], [place] [id number] 14 Nov, 2012 [facility] [address] [id number] [address] [place] [id number] Nov, [facility] [address] [id number] [address] [place] [phone] Nov, [facility] [address] [id number] [address] [place] [id number] 11 Nov, 2012 [facility] [address] [facility] [id number] [address] [place] [id number] October, [facility] [address] [facility] [id number] [address] [place] [id number] October, [facility] [address] [facility] [id number] [address] [place] [phone] Aug, [facility] [address] [facility] [id number] [address] [place] [id number] 13 Nov, 2011 IMMUNIZATIONS No Known Immunizations SOCIAL HISTORY Never Assessed REASON FOR VISIT Repository Medication PLAN OF CARE VITAL SIGNS MEDICATIONS Unknown [...] renal insufficiency Surgical History EGD- Esophagus stretching- ANGUIANO 2014 Surgical History gastric sleeve 03/2016 Hospitalization History gastric sleeve Hospitalization History [facility] ER Trouble with left shoulder blade 08/2017
--- OUTSIDE RECORDS SUMMARY | 2019-11-29 09:32 | XMS REPORT ---
Author Author Curt Avendaño Organization [facility] Address [address] [place] [address] Care Team Providers Care Professor Of Business Administration Name Role Phone MaddyQUINTIN Caceres Unavailable PROBLEMS Type Condition ICD9-CM Code VHE66-KL Code Onset Dates Condition S tatus SNOMED Code Problem Acute bacterial conjunctivitis of left eye H10.32 Active 353454821 Problem Severe episode of recurrent major depressive disorder, without psychotic features F33.2 Active 94454898 Problem Metabolic syndrome E88.81 Active 2 21801525 Problem Sciatica, right side M54.31 Active [id number] Problem DANIELA (generalized anxiety disorder) F41.1 Active 92730084 Problem Vitamin D deficiency E55.9 Active 47671872 Problem Anxiety F41.9 Active 40170910 Problem BMI 45.0-49.9, adult Z68.42 Active 665992811 Problem Mixed obsessional thoughts and acts F42.2 Active 96751942 Problem Major depression F32.9 Active 370 167068 Problem Morbid obesity E66.01 Active 80054 6002 Problem Hyperlipemia E78.5 Active 2553185 4 Problem Insomnia G47.00 Active 136615286 Problem Renal insufficiency N28.9 Active 454742323 Problem Edema R60.9 Active 971922731 Problem Type II diabetes mellitus E11.9 Acti ve 43169668 Problem Callus of foot L84 Active 96369 1005 Problem Benign essential hypertension I10 Active 2843292 Problem Recurrent major depressive disorder, in partial remission F33.41 Active 20699281 ALLERGIES No Information ENCOUNTERS Encounter Location Date Diagnosis [facility] [address] [facility] [id number] [address] [place] [phone] Jan, [facility] [address] [facility] [id number] [place] [address] [id number] Dec, [facility] [address] [facility] [id number] [address] [place] [phone] Dec, [facility] [address] [id number], [place] [id number] Dec, [facility] [address] [id number], [place] [id number] Dec, [facility] [address] [id number], [place] [id number] Nov, [facility] [address] [id number], [place] [id number] Nov, Recurrent major depressive disorder, in partial remission F33.41 [facility] [address] [place] [id number] [address] [place] [address] Nov, Recurrent major depressive d isorder, in partial remission F33.41 ; Mixed obsessional thoughts and acts F42.2 ; DANIELA (generalized anxiety disorder) F41.1 and BMI 45.0-49.9, adult Z68.[address] [facility] [address] [id number], [place] [id number] Nov, [facility] [address] [id number], [place] [id number] Nov, Other conjunctivitis of both eyes H10.89 and Sciatica, right side M54.[address] [facility] [address] [id number], [place] [id number] Nov, [facility] [address] [id number], [place] [id number] Nov, [facility] [address] [id number], [place] [id number] October, [facility] [address] [id number], [place] [id number] October, [facility] [address] [facility] [id number] [address] [place] [address] October, BMI 45.0-49.9, adult Z68.42 ; Mixed obsessional thoughts and acts F42.2 ; Recurrent major depressive disorder, in partial remission F33.41 and DANIELA (generalized anxiety disorder) F41.1 [facility] [id number], [place] [id number] October, Benign essential hypertension I10 ; Morb id obesity E66.01 and BMI 45.0-49.9, adult Z68.42 [facility] [id number] [place] [address] [id number] Sep, [facility] [id number] [place] [address] [id number] Sep, [facility] [id number] [place] [address] [id number] Sep, [facility] [id number] [place] [address] [id number] Sep, Hospital discharge follow-up Z09 ; Aller gic rhinitis, unspecified seasonality, unspecified trigger J30.9 and Shortness of breath R06.02 [facility] [address]Title[address] [place] [address] AVE [id number], [place] [id number] Sep, Recurrent major depressive disorder, in partial remission F33.41 [facility] [id number] [place] [address] [id number] Aug, Irritable mood R45.4 [place] [address] [place] [id number] [address] [place] [address] Aug, [facility] [id number] [place] [address] [id number] Jul, Benign essential hypertension I10 ; Robert a R60.9 and Impacted cerumen of left ear H61.22 [place] [address] [address] Jul, Major depression F32.9 ; Rec urrent major depressive disorder, in partial remission F33.41 and Anxiety F41.9 [place] [address] [address] Jun, Major depression F32.9 ; Rec urrent major depressive disorder, in partial remission F33.41 and Anxiety F41.9 [facility] [address] [id number], [place] [id number] Jun, Major depression F32.9 ; Morbid obesity E66.01 ; Irritable mood R45.4 ; Hand weakness R29.898 and Vitamin D deficiency E55.9 [facility] [address] [id number], [place] [id number] Jun, [facility] [address] [id number], [place] [id number] May, Major depression F32.9 [place] [address] [facility] [id number] [address] [place] [address] May, Major depression F32.[address] [place] [id number] [place] [address] [id number] May, BMI 50.0-59.9, adult Z68.43 ; Major depr ession F32.9 ; Anxiety F41.9 ; Hypertrophic toenail L60.2 and Pain of left great toe M79.[address] [place] [id number] [place] [address] [id number] May, Recurrent major depressive disorder, in partial remission F33.41 [place] [address] [facility] [id number] [address] [place] [address] Apr, [facility] [id number] [place] [address] [id number] Apr, [facility] [address] [facility] [id number] [address] [place] [address] Apr, Major depression F32.9 [facility] [id number] [place] [address] [id number] Apr, Severe episode of recurrent major depres sive disorder, without psychotic features F33.2 ; Anxiety F41.9 and Insomnia G47.[address] [facility] [address] [id number], [place] [id number] Apr, [facility] [address] [facility] [id number] [address] [place] [address] Apr, [facility] [address] [id number], [place] [id number] Apr, [facility] [address] [id number], [place] [id number] Mar, [facility] [address] [id number], [place] [id number] Mar, Allergic conjunctivitis of both eyes H10 .13 [facility] [address] [facility] [id number] [address] [place] [address] Mar, Major depression F32.9 [facility] [address] [id number], [place] [id number] Mar, Metabolic syndrome E88.81 ; History of g astric bypass Z98.890 ; Benign essential hypertension I10 and Allergic conjunctivitis of both eyes H10.13 [facility] [address] [facility] [id number] [address] [place] [address] Mar, Major depression F32.9 [facility] [address] [id number], [place] [id number] Feb, [facility] [address] [facility] [id number] [address] [place] [address] Feb, Major depression F32.9 [facility] [address] [id number], [place] [id number] Feb, Subacute maxillary sinusitis J01.00 and Bronchitis J40 [facility] [address] [facility] [id number] [address] [place] [phone] 06 Feb, 2017 Major depressive disorder, r ecurrent, moderate F33.1 [facility] [address] [id number], [place] [id number] Jan, [facility] [address] [id number], [place] [id number] Jan, Acute non-recurrent maxillary sinusitis J01.00 and Skin tag L91.8 [facility] [address] [place] [address] AVE [id number], [place] [id number] Jan, Cough R05 and Sinus congestion R09.81 [facility] [id number], [place] [id number] Jan, [facility] [id number], [place] [id number] Jan, Benign essential hypertension I10 ; Hist ory of gastric bypass Z98.890 and Nausea and vomiting in adult R11.2 [place] [id number] [address] [place] [phone] 04 Jan, 2017 Major depressive disorder, r ecurrent, moderate F33.1 [place] [id number] [address] [place] [address] Dec, Insomnia G47.00 ; Recurrent major depressive disorder, in partial remission F33.41 and Morbid obesity E66.01 [facility] [id number] [place] [address] [id number] Dec, [facility] [id number] [place] [address] [id number] Dec, Chronic bacterial conjunctivitis of left eye H10.402 [facility] [id number] [place] [address] [id number] Nov, [address] [id number] [place] [address] [id number] Nov, Dental examination Z01.20 [id number] [place] [address] [id number] Nov, Benign essential hypertension I10 ; Hist ory of gastric bypass Z98.890 and Nausea and vomiting in adult R11.2 [place] [address] [place] [id number] [address] [place] [phone] 13 Nov, 2016 Major depressive disorder, r ecurrent, moderate F33.1 ; Generalized anxiety disorder F41.1 and Insomnia due to other mental disorder F51.05 [place] [address] [facility] [id number] [address] [place] [address] Nov, Recurrent major depressive d isorder, in partial remission F33.41 ; Insomnia G47.00 and Morbid obesity E66.01 [facility] [address] [id number] [place] [id number] October, Abscess of left arm L02.414 [place] [address] [facility] [id number] [address] [place] [address] October, Morbid obesity E66.01 ; Lida r depression F32.9 and Recurrent major depressive disorder, in partial remission F33.41 [facility] [address] [id number], [place] [id number] Sep, Benign essential hypertension I10 ; Morb id obesity E66.01 ; S/P gastric bypass Z98.84 ; Abscess L02.91 and Chronic bacterial conjunctivitis of left eye H10.402 [facility] [address] [id number], [place] [id number] Sep, Dental examination Z01.20 [place] [address] [facility] [id number] [address] [place] [address] Sep, Morbid obesity E66.01 ; Lida r depression F32.9 and Recurrent major depressive disorder, in partial remission F33.41 [place] [address] [facility] [id number] [address] [place] [address] Jul, [place] [address] [facility] [id number] [address] [place] [phone] Jul, Major depressive disorder, r ecurrent, moderate F33.1 [place] [address] [facility] [id number] [address] [place] [address] Jul, Major depressive disorder, r ecurrent, moderate F33.1 and Generalized anxiety disorder F41.1 [facility] [address] [id number], [place] [id number] Jul, Cough R05 [facility] [address] [facility] [id number] [address] [place] [address] Jul, Morbid obesity E66.01 ; Lida r depression F32.9 and Recurrent major depressive disorder, in partial remission F33.41 [facility] [address] [id number], [place] [id number] Jul, [facility] [address] [id number], [place] [id number] Jul, [facility] [id number] [place] [address] [id number] Jul, Gastroenteritis K52.9 and Cough R05 [facility] [address] [facility] [address] [id number] [place] [address] [id number] Jun, Acute bacterial conjunctivitis of left e ye H10.32 [facility] [address] [facility] [id number] [address] [place] [address] Jun, [facility] [address] [facility] [id number] [address] [place] [address] Jun, Recurrent major depressive d isorder, in partial remission F33.41 [facility] [address] [place] [id number] [address] [place] [address] May, Major depression F32.9 and M orbid obesity E66.01 [facility] [address] [facility] [id number] [address] [place] [phone] May, [facility] [id number] [place] [address] [id number] May, Thrush B37.0 [facility] [address] [place] [id number] [address] [place] [address] Apr, Major depressive disorder, r ecurrent, moderate F33.1 [facility] [address] [place] [id number] [address] [place] [address] Apr, Insomnia G47.00 ; Major depr ession F32.9 and Recurrent major depressive disorder, in partial remission F33.41 [place] [address] [facility] [id number] [address] [place] [address] Apr, [place] [address] [facility] [id number] [address] [place] [address] Apr, Major depression F32.9 and R ecurrent major depressive disorder, in partial remission F33.41 [facility] [address] [id number], [place] [id number] Mar, Benign essential hypertension I10 ; Morb id obesity E66.01 ; Impacted cerumen of both ears H61.23 ; Laceration of finger of right hand, initial encounter S61.219A and Encounter for immunization Z23 [facility] [address] [facility] [id number] [address] [place] [phone] 17 Mar, 2016 [place] [address] [facility] [id number] [address] [place] [address] Mar, [place] [address] [facility] [id number] [address] [place] [address] Mar, [place] [address] [id number], [place] [id number] Feb, Nausea R11.0 ; Blood in the stool K92.1 and Benign essential hypertension I10 [place] [address] [facility] [id number] [address] [place] [address] Feb, Major depression F32.9 and R ecurrent major depressive disorder, in partial remission F33.41 [facility] [address] [id number], [place] [id number] Feb, [place] [address] [id number], [place] [id number] Feb, Recurrent major depressive disorder, in partial remission F33.41 [facility] [address] [id number], [place] [id number] Jan, [facility] [address] [id number], [place] [id number] Jan, Benign essential hypertension I10 ; Robert a R60.9 and Hyperlipidemia, unspecified hyperlipidemia type E78.5 [facility] [address] [id number], [place] [id number] Jan, Recurrent major depressive disorder, in partial remission F33.41 [facility] [address] [id number] [place] [id number] Jan, [facility] [address] [id number], [place] [id number] Jan, [facility] [address] [id number], [place] [id number] Jan, [facility] [address] [facility] [id number] [address] [place] [id number] Jan, [facility] [address] [facility] [id number] [address] [place] [address] Dec, [facility] [address] [facility] [id number] [address] [place] [phone] Nov, [facility] [address] [facility] [id number] [address] [place] [address] Nov, Major depression F32.9 [facility] [address] [facility] [id number] [address] [place] [address] Nov, [facility] [address] [facility] [id number] [address] [place] [address] Nov, [facility] [address] [facility] [id number] [address] [place] [address] Nov, Major depressive disorder, r ecurrent episode, mild F33.0 and Anxiety F41.9 [facility] [address] [id number], [place] [id number] Nov, [facility] [address] [id number], [place] [id number] October, Left elbow pain M25.522 and Other season al allergic rhinitis J30.2 [facility] [address] [id number], [place] [id number] October, [facility] [address] [facility] [id number] [address] [place] [address] October, Major depressive disorder, r ecurrent, moderate F33.1 [facility] [address] [facility] [id number] [address] [place] [address] October, Major depression F32.9 [facility] [address] [facility] [id number] [address] [place] [phone] Sep, Leroy or callus L84 and Onych omycosis B35.1 [facility] [address] [facility] [id number] [address] [place] [address] Sep, Major depressive disorder, r ecurrent, moderate F33.1 [facility] [address] [facility] [id number] [address] [place] [address] Sep, Major depression F32.9 [facility] [address] [facility] [id number] [address] [place] [address] Sep, Moderate episode of recurren t major depressive disorder F33.[address] [id number], [place] [id number] Sep, Muscle strain T14.8 [facility] [address] [facility] [id number] [address] [place] [address] Aug, Major depression F32.9 [facility] [address] [facility] [id number] [address] [place] [address] Aug, Major depression F32.9 [place] [address] [facility] [id number] [address] [place] [address] Jul, Morbid obesity E66.01 and Ma cora depression F32.9 [facility] [address] [facility] [id number] [address] [place] [address] Jul, Depression, major, recurrent , moderate F33.1 [place] [address] [facility] [address] [id number], [place] [id number] Jul, [facility] [address] [facility] [id number] [address] [place] [address] Jul, [facility] [address] [facility] [id number] [address] [place] [address] Jul, Major depression F32.9 and M orbid obesity E66.[address] [id number], [place] [id number] Jul, Type II diabetes mellitus E11.9 ; Callus of foot L84 ; Benign essential hypertension I10 and Renal insufficiency N28.9 [facility] [address] [facility] [id number] [address] [place] [id number] 09 Jul, 2015 Depression, major, recurrent , moderate F33.1 [place] [address] [facility] [id number] [address] [place] [address] Jul, Major depression F32.9 [facility] [address] [facility] [id number] [address] [place] [address] Jul, [facility] [address] [facility] [id number] [address] [place] [address] Jun, Major depression F32.9 [facility] [address] [place] [id number] [address] [place] [address] Jun, Major depressive disorder, r ecurrent, moderate F33.1 [facility] [address] [facility] [id number] [address] [place] [address] Jun, [facility] [address] [facility] [id number] [address] [place] [address] Jun, Major depressive disorder, r ecurrent, moderate F33.1 and Major depression F32.[address] [id number], [place] [id number] Jun, Type II diabetes mellitus E11.9 [place] [address] [facility] [id number] [address] [place] [address] Jun, Depression, major, recurrent , moderate F33.1 [place] [address] [facility] [id number] [address] [place] [address] May, Major depressive disorder, r ecurrent, moderate F33.1 [place] [address] [facility] [id number] [address] [place] [address] May, [place] [id number] [place] [address] [id number] May, Edema R60.9 [place] [address] [place] [id number] [address] [place] [address] May, Insomnia G47.00 and Major de pression F32.[address] [place] [id number] [place] [address] [id number] May, Morbid obesity E66.01 ; Edema R60.9 ; Sh ortness of breath R06.02 ; Benign essential hypertension I10 and Renal insufficiency N28.[address] [id number] [place] [address] [id number] May, Hyperlipemia 272.4 and Renal insufficien cy N28.9 [place] [address] [place] [id number] [address] [place] [address] Apr, Major depression F32.9 [place] [address] [facility] [id number] [address] [place] [address] Apr, [place] [address] [facility] [id number] [address] [place] [id number] Apr, Major depressive disorder, r ecurrent, moderate F33.[address] [place] [id number] [id number] [id number] Apr, Type II diabetes mellitus E11.9 ; Benign essential hypertension I10 ; Edema R60.9 and Renal insufficiency N28.9 [place] [address] [address] [place] [id number] [address] [place] [id number] Mar, Major depressive disorder, r ecurrent, moderate F33.1 [place] [address] [address] [facility] [id number] [address] [place] [id number] Mar, [place] [address] [address] [facility] [id number] [address] [place] [id number] Mar, Major depression F32.9 [facility] [id number] [place] [id number] Mar, Morbid obesity E66.01 ; Benign essential hypertension I10 and Type II diabetes mellitus E11.9 [place] [address] [address] [place] [id number] [address] [place] [id number] Feb, Major depressive disorder, r ecurrent, moderate F33.1 [place] [address] [address] [place] [id number] [address] [place] [id number] Feb, Major depressive disorder, r ecurrent episode, in partial or unspecified remission 296.35 ; Anxiety state, unspecified 300.00 and Morbid obesity 278.01 [place] [address] [address] [place] [id number] [address] [place] [id number] Feb, [place] [id number] [place] [id number] Feb, Vomiting 787.03 and Viral syndrome 079.9 9 [place] [address] [address] [place] [id number] [address] [place] [id number] Feb, Major depression, recurrent 296.30 ; Generalized anxiety disorder 300.02 and No condition on Bonnyman II V71.09 [facility] [id number] [place] [id number] Feb, Skin tag 701.9 [place] [address] [address] [facility] [id number] [address] [place] [address] Feb, [place] [address] [address] [place] [id number] [address] [place] [address] Jan, Depression, major, recurrent , moderate 296.[address] [id number] [id number] Jan, Nausea and vomiting 787.01 ; Rib pain on right side 786.50 and Fall on or from sidewalk curb E880.1 [facility] [address] [facility] [id number] [address] [place] [address] Jan, [facility] [address] [place] [id number] [address] [place] [address] Jan, Major depressive disorder, r ecurrent episode, in partial or unspecified remission 296.35 and Anxiety state, unspecified 300.[address] [id number][place] [id number] Jan, [facility] [address] [facility] [id number] [address] [place] [address] Jan, Depression, major, recurrent , moderate 296.32 [facility] [address] [place] [id number] [address] [place] [address] Jan, Major depression, recurrent 296.30 ; No condition on Bonnyman II V71.09 and No condition on axis III V71.[address] [id number][place] [id number] Jan, Drug-induced nausea and vomiting 787.01 [facility] [address] [facility] [id number] [address] [place] [address] Jan, Depression, major, recurrent , moderate 296.32 [place] [address] [address] [facility] [id number] [address] [place] [address] Dec, Depression, major, recurrent , moderate 296.[address] [id number][place] [id number] Dec, Morbid obesity 278.01 ; Metabolic syndro me 277.7 ; Hyperlipemia 272.4 ; Benign essential hypertension 401.1 ; Dietary counseling V65.3 ; Exercise counseling V65.41 and Inflamed skin tag 701.9 [place] [address] [address] Dec, Depression, major, recurrent , moderate 296.32 [place] [address] [address] Dec, [place] [address] [address] Dec, Major depression, recurrent 296.30 ; Anxiety, generalized 300.02 and No condition on Bonnyman II V71.09 [place] [address] [address] Dec, Depression, major, recurrent , moderate 296.32 [place] [address] [address] Dec, Major depressive disorder, r ecurrent episode, moderate 296.32 [place] [address] [address] Dec, Depression, major, recurrent , moderate 296.32 [place] [address] [address] Dec, Depression, major, recurrent , moderate 296.32 [place] [address] [address] Dec, Depression, major, recurrent , moderate 296.32 [place] [address] [address] Dec, Depression, major, recurrent , moderate 296.32 [place] [address] [address] Nov, Depression, major, recurrent , moderate 296.32 [place] [address] [address] Nov, Major depression 296.20 ; So cial phobia 300.23 and No condition on Bonnyman II V71.09 [place] [address] [address] 16 Nov, 2014 Depression, major, recurrent , moderate 296.32 [facility] [address] [facility] [id number] [address] [place] [address] 09 Nov, 2014 Major depressive disorder, r ecurrent episode, moderate 296.32 and Generalized anxiety disorder 300.02 [facility] [address] [facility] [id number] [address] [place] [address] Nov, Depression, major, recurrent , moderate 296.32 [facility] [address] [facility] [id number] [address] [place] [address] Nov, Depression, major, recurrent , moderate 296.32 [facility] [address] [place] [id number] [address] [place] [address] October, Generalized anxiety disorder 300.02 ; No condition on Bonnyman II V71.09 and Major depressive disorder, recurrent 296.30 [facility] [address] [place] [id number] [address] [place] [address] Sep, [facility] [address] [facility] [id number] [address] [place] [address] Sep, [facility] [address] [place] [id number] [address] [place] [address] 24 Aug, 2014 [facility] [address] [facility] [id number] [address] [place] [address] Aug, [facility] [address] [place] [id number] [address] [place] [address] Aug, [facility] [address] [facility] [id number] [address] [place] [address] Aug, [facility] [address] [place] [id number] [address] [place] [address] Aug, [facility] [address] [facility] [id number] [address] [place] [address] Aug, [facility] [address] [place] [id number] [address] [place] [address] 20 Aug, 2014 [facility] [address] [id number] [facility] [place] [address] 20 Aug, 2014 [facility] [address] [id number] [address] [place] [address], [place] [address] 13 Aug, 2014 [facility] [address] [id number] [address] [place] [address], [place] [address] 13 Aug, 2014 [facility] [address] [id number] [address] [place] [address], [place] [address] 13 Aug, 2014 [facility] [address] [id number] [address] [place] [address], [place] [address] 13 Aug, 2014 [facility] [address] [id number] [address] [place] [address], [place] [address] 12 Aug, 2014 [facility] [address] [id number] [address] [place] [address], [place] [address] Aug, [facility] [address] [id number] [address] [place] [address], [place] [address] 10 Aug, 2014 [facility] [address] [id number] [address] [place] [address], [place] [address] 10 Aug, 2014 [facility] [address] [id number] [address] [place] [address], [place] [address] 09 Aug, 2014 [facility] [address] [id number] [address] [place] [address], [place] [address] Aug, [facility] [address] [id number] [address] [place] [address], [place] [address] 24 Jul, 2014 [facility] [address] [id number] [address] [place] [address], [place] [address] Jul, 2014 [facility] [address] [id number] [address] [place] [address], [place] [address] 16 Jul, 2014 [facility] [address] [id number] [address] [place] [address], [place] [address] 16 Jul, 2014 [facility] [address] [id number] [address] [place] [address], [place] [address] Jul, [facility] [address] [id number] [address] [place] [address], [place] [address] Jul, [facility] [address] [id number] [address] [place] [address], [place] [address] Jun, [facility] [address] [id number] [address] [place] [address], [place] [address] Jun, [facility] [address] [id number] [address] [place] [address], [place] [address] Jun, [facility] [address] [id number] [address] [place] [address], [place] [address] Jun, [facility] [address] [id number] [address] [place] [address], [place] [address] Jun, [facility] [address] [id number] [address] [place] [address], [place] [address] Jun, [facility] [address] [id number] [address] [place] [address], [place] [address] Jun, [facility] [address] [id number] [address] [place] [address], [place] [address] Jun, [facility] [address] [id number] [address] [place] [address], [place] [address] Jun, [facility] [address] [id number] [address] [place] [address], [place] [address] Jun, [facility] [address] [id number] [address] [place] [address] Jun, [facility] [address] [id number] [address] [place] [address], [place] [address] Jun, [place] [address] [id number] [place] [id number] Jun, [facility] [address] [id number] [address] [place] [address] Jun, [facility] [address] [id number] [address] [place] [address], [place] [address] Jun, [facility] [address] [id number] [address] [place] [address], [place] [address] Jun, [facility] [address] [id number] [address] [place] [address], [place] [address] May, [facility] [address] [id number] [address] [place] [address], [place] [address] May, [facility] [address] [id number] [address] [place] [address], [place] [address] May, [facility] [address] [id number] [address] [place] [address], [place] [address] May, [facility] [address] [id number] [address] [place] [address], [place] [address] Apr, [facility] [address] [id number] [address] [place] [address], [place] [address] Apr, [facility] [address] [id number] [address] [place] [address], [place] [address] Apr, [facility] [address] [id number] [address] [place] [address], [place] [address] Apr, [facility] [address] [id number] [address] [place] [address], [place] [address] Apr, [facility] [address] [id number] [address] [place] [address], [place] [address] Apr, [facility] [address] [id number] [address] [place] [address], [place] [address] Apr, [facility] [address] [id number] [address] [place] [address], [place] [address] Apr, [facility] [address] [id number] [address] [place] [address], [place] [address] Apr, [facility] [address] [id number] [address] [place] [address] Apr, [facility] [address] [id number] [address] [place] [address], [place] [address] Apr, [facility] [address] [id number] [address] [place] [address], [place] [address] Apr, [facility] [address] [id number] [address] [place] [address], [place] [address] Apr, [facility] [address] [id number] [address] [place] [address], [place] [address] Apr, [facility] [address] [id number] [address] [place] [address], [place] [address] Apr, [facility] [address] [id number] [address] [place] [address], [place] [address] Apr, [facility] [address] [id number] [address] [place] [address], [place] [address] Apr, [facility] [address] [id number] [address] [place] [address], [place] [address] Apr, [facility] [address] [id number] [address] [place] [address] Apr, [facility] [address] [id number] [address] [place] [address], [place] [address] Apr, [facility] [address] [id number] [address] [place] [address] Mar, [facility] [address] [id number] [address] [place] [address] Mar, [facility] [address] [id number] [address] [place] [address] Mar, [facility] [address] [id number] [address] [place] [address] Mar, [facility] [address] [id number] [address] [place] [address], [place] [address] Mar, [facility] [address] [id number] [address] [place] [address], [place] [address] Mar, [facility] [address] [id number] [address] [place] [address], [place] [address] Mar, [facility] [address] [id number] [address] [place] [address], [place] [address] Mar, [facility] [address] [id number] [address] [place] [address], [place] [address] Mar, [facility] [address] [id number] [address] [place] [address], [place] [address] Mar, [facility] [address] [id number] [address] [place] [address], [place] [address] Feb, [facility] [address] [id number] [address] [place] [address], [place] [address] Feb, [facility] [address] [id number] [address] [place] [address], [place] [address] Feb, [facility] [address] [id number] [address] [place] [address], [place] [address] Feb, [facility] [address] [id number] [address] [place] [address], [place] [address] Jan, [facility] [address] [id number] [address] [place] [address], [place] [address] Jan, [facility] [address] [id number] [address] [place] [address], [place] [address] Jan, [facility] [address] [id number] [address] [place] [address], [place] [address] Jan, [facility] [address] [id number] [address] [place] [address], [place] [address] Jan, [facility] [address] [id number] [address] [place] [address], [place] [address] Jan, [facility] [address] [id number] [address] [place] [address], [place] [address] Dec, [facility] [address] [id number] [facility] [place] [address] Dec, [facility] [address] [id number] [facility] [place] [address] Nov, [facility] [address] [id number] [facility] [place] [address] Nov, [facility] [address] [id number] [address] [place] [address], [place] [address] Nov, [facility] [address] [id number] [address] [place] [address], [place] [address] Nov, [facility] [address] [id number] [address] [place] [address], [place] [address] Nov, [facility] [address] [id number] [address] [place] [address], [place] [address] Nov, [facility] [address] [id number] [address] [place] [address], [place] [address] Sep, [facility] [address] [id number] [address] [place] [address], [place] [address] Sep, [facility] [address] [id number] [address] [place] [address], [place] [address] Sep, [facility] [address] [id number] [address] [place] [address], [place] [address] Sep, [facility] [address] [id number] [address] [place] [address], [place] [address] Aug, [facility] [address] [id number] [address] [place] [address], [place] [address] Aug, [facility] [address] [id number] [address] [place] [address], [place] [address] Jul, [facility] [address] [id number] [address] [place] [address], [place] [address] Jul, [facility] [address] [id number] [address] [place] [address], [place] [address] Jun, [facility] [address] [id number] [address] [place] [address], [place] [address] Jun, [facility] [address] [id number] [address] [place] [address], [place] [address] Jun, [facility] [address] [id number] [address] [place] [address], [place] [address] Jun, [facility] [address] [id number] [address] [place] [address], [place] [address] May, [facility] [address] [id number] [address] [place] [address], [place] [address] May, [facility] [address] [id number] [address] [place] [address], [place] [address] May, [facility] [address] [id number] [address] [place] [address], [place] [address] May, [facility] [address] [id number] [address] [place] [address], [place] [address] May, [facility] [address] [id number] [address] [place] [address], [place] [address] May, [facility] [address] [id number] [address] [place] [address], [place] [address] Apr, [facility] [address] [id number] [address] [place] [address], [place] [address] Apr, [facility] [address] [id number] [address] [place] [address], [place] [address] Apr, [facility] [address] [id number] [address] [place] [address], [place] [address] Apr, [facility] [address] [id number] [address] [place] [address], [place] [address] Mar, [facility] [address] [id number] [address] [place] [address], [place] [address] Mar, [facility] [address] [id number] [address] [place] [address], [place] [address] Mar, [facility] [address] [id number] [address] [place] [address], [place] [address] Mar, [facility] [address] [id number] [address] [place] [address], [place] [address] Feb, [facility] [address] [id number] [place] [id number] Jan, [facility] [address] [id number] [address] [place] [address], [place] [address] Jan, [facility] [address] [id number] [address] [place] [address], [place] [address] Dec, [facility] [address] [id number] [address] [place] [address], [place] [address] Dec, [facility] [address] [id number] [address] [place] [address], [place] [address] Dec, [facility] [address] [id number] [place] [id number] Dec, [facility] [address] [id number] [address] [place] [address], [place] [address] Nov, [facility] [address] [id number] [address] [place] [address], [place] [address] Nov, [facility] [address] [id number] [address] [place] [address], [place] [address] Nov, [facility] [address] [id number] [address] [place] [address], [place] [address] Nov, [facility] [address] [id number] [address] [place] [address], [place] [address] Nov, [facility] [address] [id number] [address] [place] [address], [place] [address] October, [facility] [address] [id number] [address] [place] [address], [place] [id number] October, [facility] [address] [facility] [id number] [address] [address] Aug, [facility] [address] [facility] [id number] [address] [place] [id number] Nov, IMMUNIZATIONS No Known Immunizations SOCIAL HISTORY Never Assessed REASON FOR VISIT [employer] PLAN OF CARE VITAL SIGNS MEDICATIONS Unknown [...] Hospitalization History gastric sleeve Hospitalization History [facility] ER Trouble with left shoulder blade 08/2017
--- OUTSIDE RECORDS SUMMARY | 2019-11-29 09:32 | XMS REPORT ---
Author Author Curt DIAZ [facility] eClinicalWorks Address Unknown Phone Unavailable Care Team Providers Care Fire Fighting Equipment Specialist Name Role Phone CHRIS DIAZ CP Unavailable Allergies No Known Allergies Problems Problem Type Condition ICD-9 Code Onset Dates Condition Statu s Problem Anxiety state, unspecified 300.00 A ctive Problem Major depressive disorder, r ecurrent episode, in partial or unspecified remission 296.35 Active Problem Unspecified sleep apnea 780.57 Acti ve Problem Hyperlipemia 272.4 Active Problem Benign essential hypertension 401.1 Active Problem Metabolic syndrome 277.7 Active Problem Chronic rhinitis 472.0 Active Problem Morbid obesity 278.01 Active Problem Edema 782.3 Active Problem Insomnia, unspecified 780.52 Active Medications No Known Medications Vital Signs Date/Time: Jan 27, 2015 Weight 450 lbs Results No Known Results Summary Purpose eClinicalWorks Submission
--- OUTSIDE RECORDS SUMMARY | 2019-11-29 09:32 | XMS REPORT ---
Author Author Curt DIAZ [facility] Address [address] [place] [address] Care Team Providers Care Lead Case Manager Name Role Phone JOE CHRIS Unavailable PROBLEMS Type Condition ICD9-CM Code LCM71-PE Code Onset Dates Condition S tatus SNOMED Code Problem Acute bacterial conjunctivitis of left eye H10.32 Active 661990579 Problem Severe episode of recurrent major depressive disorder, without psychotic features F33.2 Active 09630315 Problem Metabolic syndrome E88.81 Active 2 86390746 Problem Sciatica, right side M54.31 Active 089119088043122 Problem DANIELA (generalized anxiety disorder) F41.1 Active 04936387 Problem Vitamin D deficiency E55.9 Active 64468627 Problem Anxiety F41.9 Active 06043716 Problem BMI 45.0-49.9, adult Z68.42 Active 709710006 Problem Mixed obsessional thoughts and acts F42.2 Active 89860669 Problem Major depression F32.9 Active 370 640489 Problem Morbid obesity E66.01 Active 72223 6002 Problem Hyperlipemia E78.5 Active 3315437 4 Problem Insomnia G47.00 Active 112805183 Problem Renal insufficiency N28.9 Active 775034823 Problem Edema R60.9 Active 001981556 Problem Type II diabetes mellitus E11.9 Acti ve 33356005 Problem Callus of foot L84 Active 25225 1005 Problem Benign essential hypertension I10 Active 9291815 Problem Recurrent major depressive disorder, in partial remission F33.41 Active 61490212 ALLERGIES No Information ENCOUNTERS Encounter Location Date Diagnosis [facility] [address] [facility] [id number] [address] [place] [phone] Jan, [facility] [address] [facility] [id number] [place] [id number] Dec, [facility] [address] [facility] [id number] [address] [place] [address] Dec, [facility] [address] [id number] [place] [id number] Dec, Recurrent major depressive disorder, in partial remission F33.[address] [id number] [place] [phone] Dec, [facility] [address] [address] [id number] [place] [id number] Nov, [facility] [address] [id number] [place] [id number] Nov, Recurrent major depressive disorder, in partial remission F33.41 [facility] [address] [facility] [id number] [address] [place] [phone] Nov, Recurrent major depressive d isorder, in partial remission F33.41 ; Mixed obsessional thoughts and acts F42.2 ; DANIELA (generalized anxiety disorder) F41.1 and BMI 45.0-49.9, adult Z68.42 [facility] [address] [id number] [place] [id number] Nov, [facility] [address] [id number] [place] [id number] Nov, Other conjunctivitis of both eyes H10.89 and Sciatica, right side M54.[address] [facility] [address] [id number] [place] [id number] Nov, [facility] [address] [id number] [place] [id number] Nov, [facility] [address] [id number] [place] [id number] October, [facility] [address] [id number] [place] [id number] October, [facility] [address] [facility] [id number] [address] [place] [phone] October, BMI 45.0-49.9, adult Z68.42 ; Mixed obsessional thoughts and acts F42.2 ; Recurrent major depressive disorder, in partial remission F33.41 and DANIELA (generalized anxiety disorder) F41.1 [facility] [id number] [place] [address] [id number] October, Benign essential hypertension I10 ; Morb id obesity E66.01 and BMI 45.0-49.9, adult Z68.42 [facility] [address] [id number] [place] [id number] Sep, [facility] [address] [place] [address] AVE [id number] [place] [id number] Sep, [facility] [address] [id number] [place] [address] [id number] Sep, [facility] [address] [id number] [place] [address] [id number] Sep, Hospital discharge follow-up Z09 ; Aller gic rhinitis, unspecified seasonality, unspecified trigger J30.9 and Shortness of breath R06.02 [facility] [address] [id number] [place] [address] [id number] Sep, Recurrent major depressive disorder, in partial remission F33.41 [facility] [address] [id number] [place] [address] [id number] Aug, Irritable mood R45.4 [place] [address] [place] [id number] [place] [phone] Aug, [facility] [address] [place] [id number] [place] [address] [id number] Jul, Benign essential hypertension I10 ; Robert a R60.9 and Impacted cerumen of left ear H61.22 [place] [address] [place] [id number] [address] [place] [phone] 14 Jul, 2017 Major depression F32.9 ; Rec urrent major depressive disorder, in partial remission F33.41 and Anxiety F41.9 [place] [address] [place] [id number] [address] [place] [phone] Jun, Major depression F32.9 ; Rec urrent major depressive disorder, in partial remission F33.41 and Anxiety F41.9 [facility] [address] [id number] [place] [id number] Jun, Major depression F32.9 ; Morbid obesity E66.01 ; Irritable mood R45.4 ; Hand weakness R29.898 and Vitamin D deficiency E55.9 [facility] [address] [id number] [place] [id number] Jun, [facility] [address] [id number] [place] [id number] May, Major depression F32.9 [place] [address] [facility] [id number] [address] [place] [address] May, Major depression F32.[address] [place] [address] [id number] [place] [id number] May, BMI 50.0-59.9, adult Z68.43 ; Major depr ession F32.9 ; Anxiety F41.9 ; Hypertrophic toenail L60.2 and Pain of left great toe M79.[address] [place] [id number] [place] [address] [id number] May, Recurrent major depressive disorder, in partial remission F33.41 [facility] [address] [facility] [id number] [address] [place] [phone] Apr, [facility] [address] [id number] [place] [id number] Apr, [facility] [address] [facility] [id number] [address] [place] [address] Apr, Major depression F32.9 [facility] [address] [id number] [place] [id number] 13 Apr, 2017 Severe episode of recurrent major depres sive disorder, without psychotic features F33.2 ; Anxiety F41.9 and Insomnia G47.[address] [facility] [address] [id number] [place] [id number] Apr, [facility] [address] [facility] [id number] [address] [place] [phone] Apr, [facility] [address] [id number] [place] [id number] Apr, [facility] [address] [id number] [place] [id number] Mar, [facility] [address] [id number] [place] [id number] Mar, Allergic conjunctivitis of both eyes H10 .13 [facility] [address] [facility] [id number] [address] [place] [phone] Mar, Major depression F32.[address] [facility] [address] [id number] [place] [id number] Mar, Metabolic syndrome E88.81 ; History of g astric bypass Z98.890 ; Benign essential hypertension I10 and Allergic conjunctivitis of both eyes H10.13 [facility] [address] [facility] [id number] [address] [place] [phone] Mar, Major depression F32.[address] [facility] [address] [id number] [place] [id number] Feb, [facility] [address] [facility] [id number] [address] [place] [phone] Feb, Major depression F32.[address] [facility] [address] [id number] [place] [id number] Feb, Subacute maxillary sinusitis J01.[address] [facility] [address] [facility] [id number] [address] [place] [phone] 06 Feb, 2017 Major depressive disorder, r ecurrent, moderate F33.1 [facility] [address] [id number] [place] [id number] Jan, [facility] [address] [address] [id number] [place] [id number] Jan, Acute non-recurrent maxillary sinusitis J01.00 and Skin tag L91.[address] [id number] [place] [id number] Jan, Cough R05 and Sinus congestion R09.81 [facility] [address] [place] [address] AVE [id number] [place] [id number] Jan, [facility] [id number] [place] [id number] Jan, Benign essential hypertension I10 ; Hist ory of gastric bypass Z98.890 and Nausea and vomiting in adult R11.2 [place] [address] [place] [id number] [address] [place] [phone] 04 Jan, 2017 Major depressive disorder, r ecurrent, moderate F33.1 [place] [address] [place] [id number] [address] [place] [phone] 12 Dec, 2016 Insomnia G47.00 ; Recurrent major depressive disorder, in partial remission F33.41 and Morbid obesity E66.01 [facility] [address] [place] [address] AVE [id number] [place] [id number] Dec, [facility] [id number] [place] [id number] Dec, Chronic bacterial conjunctivitis of left eye H10.402 [facility] [id number] [place] [id number] Nov, [facility] [address] [id number] [place] [id number] Nov, Dental examination Z01.20 [facility] [address] [id number] [place] [id number] Nov, Benign essential hypertension I10 ; Hist ory of gastric bypass Z98.890 and Nausea and vomiting in adult R11.2 [place] [address] [place] [id number] [address] [place] [phone] Nov, Major depressive disorder, r ecurrent, moderate F33.1 ; Generalized anxiety disorder F41.1 and Insomnia due to other mental disorder F51.05 [place] [address] [facility] [id number] [address] [place] [address] Nov, Recurrent major depressive d isorder, in partial remission F33.41 ; Insomnia G47.00 and Morbid obesity E66.01 [facility] [address] [id number] [place] [id number] October, Abscess of left arm L02.414 [place] [address] [facility] [id number] [address] [place] [address] October, Morbid obesity E66.01 ; Lida r depression F32.9 and Recurrent major depressive disorder, in partial remission F33.41 [facility] [address] [id number] [place] [id number] Sep, Benign essential hypertension I10 ; Morb id obesity E66.01 ; S/P gastric bypass Z98.84 ; Abscess L02.91 and Chronic bacterial conjunctivitis of left eye H10.[address] [place] [id number] [place] [address] [id number] Sep, Dental examination Z01.[address] [id number] [address] [place] [address] Sep, Morbid obesity E66.01 ; Lida r depression F32.9 and Recurrent major depressive disorder, in partial remission F33.41 [place] [address] [facility] [id number] [address] [place] [phone] Jul, [place] [address] [facility] [id number] [address] [place] [phone] Jul, Major depressive disorder, r ecurrent, moderate F33.1 [place] [address] [facility] [id number] [address] [place] [phone] Jul, Major depressive disorder, r ecurrent, moderate F33.1 and Generalized anxiety disorder F41.[address] [facility] [address] [id number] [place] [id number] Jul, Cough R05 [facility] [address] [facility] [id number] [address] [place] [phone] Jul, Morbid obesity E66.01 ; Lida r depression F32.9 and Recurrent major depressive disorder, in partial remission F33.41 [facility] [id number] [place] [address] [id number] Jul, [facility] [id number] [place] [address] [id number] Jul, [facility] [place] [address] [id number] [place] [address] [id number] Jul, Gastroenteritis K52.9 and Cough R05 [address] [id number] [place] [address] [id number] Jun, Acute bacterial conjunctivitis of left e ye H10.32 [facility] [address] [facility] [id number] [address] [place] [phone] Jun, [place] [address] [facility] [id number] [address] [place] [phone] Jun, Recurrent major depressive d isorder, in partial remission F33.41 [facility] [address] [place] [id number] [address] [place] [phone] May, Major depression F32.9 and M orbid obesity E66.01 [facility] [address] [facility] [id number] [address] [place] [address] May, [facility] [id number] [place] [address] [id number] May, Thrush B37.0 [facility] [address] [place] [id number] [address] [place] [phone] 15 Apr, 2016 Major depressive disorder, r ecurrent, moderate F33.1 [place] [address] [facility] [id number] [address] [place] [id number] 15 Apr, 2016 Insomnia G47.00 ; Major depr ession F32.9 and Recurrent major depressive disorder, in partial remission F33.41 [place] [address] [facility] [id number] [address] [place] [phone] Apr, [place] [address] [facility] [id number] [address] [place] [address] Apr, Major depression F32.9 and R ecurrent major depressive disorder, in partial remission F33.41 [facility] [address] [id number] [place] [id number] Mar, Benign essential hypertension I10 ; Morb id obesity E66.01 ; Impacted cerumen of both ears H61.23 ; Laceration of finger of right hand, initial encounter S61.219A and Encounter for immunization Z23 [place] [address] [facility] [id number] [address] [place] [phone] 17 Mar, 2016 [place] [address] [facility] [id number] [address] [place] [phone] Mar, [place] [address] [facility] [id number] [address] [place] [address] Mar, [place] [address] [id number] [place] [id number] Feb, Nausea R11.0 ; Blood in the stool K92.1 and Benign essential hypertension I10 [place] [address] [facility] [id number] [address] [place] [address] Feb, Major depression F32.9 and R ecurrent major depressive disorder, in partial remission F33.41 [facility] [address] [id number] [place] [id number] Feb, [facility] [address] [id number] [place] [id number] Feb, Recurrent major depressive disorder, in partial remission F33.41 [facility] [address] [id number] [place] [id number] Jan, [facility] [address] [id number] [place] [id number] Jan, Benign essential hypertension I10 ; Robert a R60.9 and Hyperlipidemia, unspecified hyperlipidemia type E78.[address] [facility] [address] [id number] [place] [id number] Jan, Recurrent major depressive disorder, in partial remission F33.41 [facility] [place] [address] [id number] [place] [id number] Jan, [facility] [address] [id number] [place] [id number] Jan, [facility] [address] [id number] [place] [id number] Jan, [facility] [address] [facility] [id number] [address] [place] [phone] Jan, [facility] [address] [facility] [id number] [address] [place] [phone] Dec, [facility] [address] [facility] [id number] [address] [place] [phone] Nov, [facility] [address] [facility] [id number] [address] [place] [address] Nov, Major depression F32.9 [facility] [address] [facility] [id number] [address] [place] [address] Nov, [facility] [address] [facility] [id number] [address] [place] [address] Nov, [facility] [address] [facility] [id number] [address] [place] [phone] Nov, Major depressive disorder, r ecurrent episode, mild F33.0 and Anxiety F41.9 [facility] [address] [id number] [place] [id number] Nov, [facility] [address] [id number] [place] [id number] October, Left elbow pain M25.522 and Other season al allergic rhinitis J30.2 [facility] [address] [facility] [address] [id number] [place] [id number] October, [facility] [address] [facility] [id number] [address] [place] [phone] October, Major depressive disorder, r ecurrent, moderate F33.1 [facility] [address] [facility] [id number] [address] [place] [phone] October, Major depression F32.9 [facility] [address] [facility] [id number] [address] [place] [address] Sep, [place] or callus L84 and Onych omycosis B35.1 [facility] [address] [facility] [id number] [address] [place] [phone] Sep, Major depressive disorder, r ecurrent, moderate F33.1 [facility] [address] [facility] [id number] [address] [place] [phone] Sep, Major depression F32.9 [facility] [address] [facility] [id number] [address] [place] [phone] Sep, Moderate episode of recurren t major depressive disorder F33.1 [facility] [address] [facility] [address] [id number] [place] [id number] Sep, Muscle strain T14.8 [facility] [address] [facility] [id number] [address] [place] [phone] Aug, Major depression F32.9 [facility] [address] [facility] [id number] [address] [place] [phone] Aug, Major depression F32.9 [facility] [address] [facility] [id number] [address] [place] [address] Jul, Morbid obesity E66.01 and Ma cora depression F32.9 [facility] [address] [facility] [id number] [address] [place] [address] Jul, Depression, major, recurrent , moderate F33.[address] [id number] [place] [id number] Jul, [facility] [address] [facility] [id number] [address] [place] [phone] Jul, [facility] [address] [facility] [id number] [address] [place] [phone] Jul, Major depression F32.9 and M orbid obesity E66.[address] [id number] [place] [address] [id number] Jul, Type II diabetes mellitus E11.9 ; Callus of foot L84 ; Benign essential hypertension I10 and Renal insufficiency N28.9 [facility] [address] [facility] [id number] [address] [place] [phone] Jul, Depression, major, recurrent , moderate F33.1 [facility] [address] [facility] [id number] [address] [place] [phone] Jul, Major depression F32.9 [place] [address] [place] [id number] [address] [place], [place] [id number] Jul, [facility] [address] [facility] [id number] [address] [place] [phone] Jun, Major depression F32.9 [facility] [address] [facility] [id number] [address] [place] [address] Jun, Major depressive disorder, r ecurrent, moderate F33.1 [facility] [address] [facility] [id number] [address] [place] [address] Jun, [place] [address] [facility] [id number] [address] [place] [address] Jun, Major depressive disorder, r ecurrent, moderate F33.1 and Major depression F32.[address] [id number] [place] [id number] Jun, Type II diabetes mellitus E11.9 [place] [address] [facility] [id number] [address] [place] [phone] Jun, Depression, major, recurrent , moderate F33.1 [place] [address] [facility] [id number] [address] [place] [address] May, Major depressive disorder, r ecurrent, moderate F33.1 [place] [address] [facility] [id number] [address] [place] [id number] May, [place] [id number] [place] [id number] May, Edema R60.9 [place] [address] [address] [place] [id number] [address] [place] [id number] May, Insomnia G47.00 and Major de pression F32.9 [facility] [id number] [place] [id number] May, Morbid obesity E66.01 ; Edema R60.9 ; Sh ortness of breath R06.02 ; Benign essential hypertension I10 and Renal insufficiency N28.9 [facility] [address] [id number] [place] [id number] May, Hyperlipemia 272.4 and Renal insufficien cy N28.9 [place] [address] [address] [facility] [id number] [address] [place] [id number] Apr, Major depression F32.9 [place] [address] [address] [facility] [id number] [address] [place] [id number] Apr, [place] [address] [address] [facility] [id number] [address] [place] [phone] Apr, Major depressive disorder, r ecurrent, moderate F33.1 [facility] [address] [id number] [place] [id number] Apr, Type II diabetes mellitus E11.9 ; Benign essential hypertension I10 ; Edema R60.[address]28.9 [facility] [address] [facility] [id number] [address] [place] [phone] Mar, Major depressive disorder, r ecurrent, moderate F33.1 [facility] [address] [facility] [id number] [address] [place] [address] Mar, [facility] [address] [place] [id number] [address] [place] [address] Mar, Major depression F32.9 [facility] [id number] [place] [id number] Mar, Morbid obesity E66.01 ; Benign essential hypertension I10 and Type II diabetes mellitus E11.9 [place] [address] [address] [facility] [id number] [address] [place] [address] Feb, Major depressive disorder, r ecurrent, moderate F33.1 [place] [address] [place] [id number] [address] [place] [address] Feb, Major depressive disorder, r ecurrent episode, in partial or unspecified remission 296.35 ; Anxiety state, unspecified 300.00 and Morbid obesity 278.01 [place] [address] [place] [id number] [address] [place] [address] Feb, [place] [id number] [place] [id number] Feb, Vomiting 787.03 and Viral syndrome 079.9 9 [place] [address] [address] [facility] [id number] [address] [place] [address] 15 Feb, 2015 Major depression, recurrent 296.30 ; Generalized anxiety disorder 300.02 and No condition on Beeler II V71.09 [facility] [id number] [place] [address] [id number] Feb, Skin tag 701.9 [facility] [address] [facility] [id number] [address] [place] [address] Feb, [facility] [address] [id number] [address] [place] [address] Jan, Depression, major, recurrent , moderate 296.[address] [id number] [place] [id number] Jan, Nausea and vomiting 787.01 ; Rib pain on right side 786.50 and Fall on or from sidewalk curb E880.1 [facility] [address] [facility] [id number] [address] [place] [address] Jan, [facility] [address] [id number] [address] [place] [address] Jan, Major depressive disorder, r ecurrent episode, in partial or unspecified remission 296.35 and Anxiety state, unspecified 300.[address] [id number] [place] [id number] Jan, [facility] [address] [facility] [id number] [address] [place] [address] Jan, Depression, major, recurrent , moderate 296.32 [facility] [address] [facility] [id number] [address] [place] [address] Jan, Major depression, recurrent 296.30 ; No condition on Beeler II V71.09 and No condition on axis III V71.[address] [id number] [place] [id number] Jan, Drug-induced nausea and vomiting 787.01 [facility] [address] [facility] [id number] [address] [place] [address] Jan, Depression, major, recurrent , moderate 296.32 [place] [address] [address] [facility] [id number] [address] [place] [address] Dec, Depression, major, recurrent , moderate 296.[address] [id number] [place] [address] [id number] Dec, Morbid obesity 278.01 ; Metabolic syndro me 277.7 ; Hyperlipemia 272.4 ; Benign essential hypertension 401.1 ; Dietary counseling V65.3 ; Exercise counseling V65.41 and Inflamed skin tag 701.9 [place] [address] [address] Dec, Depression, major, recurrent , moderate 296.32 [place] [address] [address] Dec, [place] [address] [address] Dec, Major depression, recurrent 296.30 ; Anxiety, generalized 300.02 and No condition on Beeler II V71.09 [place] [address] [address] Dec, Depression, major, recurrent , moderate 296.32 [place] [address] [address] Dec, Major depressive disorder, r ecurrent episode, moderate 296.[address] [address] Dec, Depression, major, recurrent , moderate 296.32 [place] [address] [address] Dec, Depression, major, recurrent , moderate 296.32 [place] [address] [address] Dec, Depression, major, recurrent , moderate 296.32 [place] [address] [address] Dec, Depression, major, recurrent , moderate 296.[address] [address] Nov, Depression, major, recurrent , moderate 296.32 [place] [address] [address] Nov, Major depression 296.20 ; So cial phobia 300.23 and No condition on Beeler II V71.09 [place] [address] [address] [facility] [id number] [address] [place] [address] 16 Nov, 2014 Depression, major, recurrent , moderate 296.32 [facility] [address] [facility] [id number] [address] [place] [address] 09 Nov, 2014 Major depressive disorder, r ecurrent episode, moderate 296.32 and Generalized anxiety disorder 300.02 [facility] [address] [facility] [id number] [address] [place] [address] Nov, Depression, major, recurrent , moderate 296.32 [facility] [address] [facility] [id number] [address] [place] [address] Nov, Depression, major, recurrent , moderate 296.32 [facility] [address] [id number] [address] [place] [address] October, Generalized anxiety disorder 300.02 ; No condition on Beeler II V71.09 and Major depressive disorder, recurrent 296.30 [facility] [address] [place] [id number] [address] [place] [address] [address] Sep, 2014 [facility] [address] [facility] [id number] [address] [place] [address] Sep, [facility] [address] [id number] [address] [place] [address] Aug, [facility] [address] [id number] [address] [place] [address] Aug, [facility] [address] [id number] [address] [place] [address] Aug, [facility] [address] [facility] [id number] [address] [place] [address] Aug, [facility] [address] [id number] [address] [place] [address] Aug, [facility] [address] [id number] [address] [place] [address] Aug, [facility] [address] [id number] [address] [place] [address] [place] [address] 20 Aug, 2014 [facility] [address] [id number] [address] [place] [address], [place] [address] 20 Aug, 2014 [facility] [address] [id number] [address] [place] [address], [place] [address] 13 Aug, 2014 [facility] [address] [id number] [address] [place] [address], [place] [address] 13 Aug, 2014 [facility] [address] [id number] [address] [place] [address], [place] [address] 13 Aug, 2014 [facility] [address] [id number] [address] [place] [address], [place] [address] 13 Aug, 2014 [facility] [address] [id number] [address] [place] [address], [place] [address] Aug, [facility] [address] [id number] [address] [place] [address], [place] [address] Aug, [facility] [address] [id number] [address] [place] [address], [place] [address] 10 Aug, 2014 [facility] [address] [id number] [address] [place] [address], [place] [address] 10 Aug, 2014 [facility] [address] [id number] [address] [place] [address], [place] [address] Aug, [facility] [address] [id number] [address] [place] [address], [place] [address] Aug, [facility] [address] [id number] [address] [place] [address], [place] [address] 24 Jul, 2014 [facility] [address] [id number] [address] [place] [address], [place] [address] Jul, 2014 [facility] [address] [id number] [address] [place] [address], [place] [address] 16 Jul, 2014 [facility] [address] [id number] [address] [place] [address], [place] [address] 16 Jul, 2014 [facility] [address] [id number] [address] [place] [address], [place] [address] Jul, [facility] [address] [id number] [address] [place] [address], [place] [address] Jul, [facility] [address] [id number] [address] [place] [address], [place] [address] Jun, [facility] [address] [id number] [address] [place] [address], [place] [address] Jun, [facility] [address] [id number] [address] [place] [address], [place] [address] Jun, [facility] [address] [id number] [address] [place] [address], [place] [address] Jun, [facility] [address] [id number] [address] [place] [address], [place] [address] Jun, [facility] [address] [id number] [address] [place] [address], [place] [address] Jun, [facility] [address] [id number] [address] [place] [address], [place] [address] Jun, [facility] [address] [id number] [address] [place] [address], [place] [address] Jun, [facility] [address] [id number] [address] [place] [address], [place] [address] Jun, [facility] [address] [id number] [address] [place] [address] Jun, [facility] [address] [id number] [address] [place] [address], [place] [address] Jun, [facility] [address] [id number] [address] [place] [address], [place] [address] Jun, [facility] [place] [address] [id number] [place] [id number] Jun, [facility] [address] [id number] [address] [place] [address] Jun, [facility] [address] [id number] [address] [place] [address], [place] [address] Jun, [facility] [address] [id number] [address] [place] [address], [place] [address] Jun, [facility] [address] [id number] [address] [place] [address], [place] [address] May, [facility] [address] [id number] [address] [place] [address] May, [facility] [address] [id number] [address] [place] [address], [place] [address] May, [facility] [address] [id number] [address] [place] [address], [place] [address] May, [facility] [address] [id number] [address] [place] [address], [place] [address] Apr, [facility] [address] [id number] [address] [place] [address], [place] [address] Apr, [facility] [address] [id number] [address] [place] [address] Apr, [facility] [address] [id number] [address] [place] [address], [place] [address] Apr, [facility] [address] [id number] [address] [place] [address] Apr, [facility] [address] [id number] [address] [place] [address] Apr, [facility] [address] [id number] [address] [place] [address], [place] [address] Apr, [facility] [address] [id number] [address] [place] [address], [place] [address] Apr, [facility] [address] [id number] [address] [place] [address] Apr, [facility] [address] [id number] [address] [place] [address], [place] [address] Apr, [facility] [address] [id number] [address] [place] [address], [place] [address] Apr, [facility] [address] [id number] [address] [place] [address], [place] [address] Apr, [facility] [address] [id number] [address] [place] [address], [place] [address] Apr, [facility] [address] [id number] [address] [place] [address], [place] [address] Apr, [facility] [address] [id number] [address] [place] [address], [place] [address] Apr, [facility] [address] [id number] [address] [place] [address], [place] [address] Apr, [facility] [address] [id number] [address] [place] [address], [place] [address] Apr, [facility] [address] [id number] [address] [place] [address], [place] [address] Apr, [facility] [address] [id number] [address] [place] [address], [place] [address] Apr, [facility] [address] [id number] [address] [place] [address], [place] [address] Apr, [facility] [address] [id number] [address] [place] [address], [place] [address] Mar, [facility] [address] [id number] [address] [place] [address], [place] [address] Mar, [facility] [address] [id number] [address] [place] [address], [place] [address] Mar, [facility] [address] [id number] [address] [place] [address], [place] [address] Mar, [facility] [address] [id number] [address] [place] [address], [place] [address] Mar, [facility] [address] [id number] [address] [place] [address], [place] [address] Mar, [facility] [address] [id number] [address] [place] [address], [place] [address] Mar, [facility] [address] [id number] [address] [place] [address], [place] [address] Mar, [facility] [address] [id number] [address] [place] [address], [place] [address] Mar, [facility] [address] [id number] [address] [place] [address], [place] [address] Mar, [facility] [address] [id number] [address] [place] [address], [place] [address] Feb, [facility] [address] [id number] [address] [place] [address], [place] [address] Feb, [facility] [address] [id number] [address] [place] [address], [place] [address] Feb, [facility] [address] [id number] [address] [place] [address], [place] [address] Feb, [facility] [address] [id number] [address] [place] [address], [place] [address] Jan, [facility] [address] [id number] [address] [place] [address], [place] [address] Jan, [facility] [address] [id number] [address] [place] [address], [place] [address] Jan, [facility] [address] [id number] [address] [place] [address], [place] [address] Jan, [facility] [address] [id number] [address] [place] [address], [place] [address] Jan, [facility] [address] [id number] [address] [place] [address], [place] [address] Jan, [facility] [address] [id number] [address] [place] [address], [place] [address] Dec, [facility] [address] [id number] [address] [place] [address], [place] [address] Dec, [facility] [address] [id number] [address] [place] [address], [place] [address] Nov, [facility] [address] [id number] [address] [place] [address], [place] [address] Nov, [facility] [address] [id number] [address] [place] [address], [place] [address] Nov, [facility] [address] [id number] [address] [place] [address], [place] [address] Nov, [facility] [address] [id number] [address] [place] [address], [place] [address] Nov, [facility] [address] [id number] [address] [place] [address], [place] [address] Nov, [facility] [address] [id number] [address] [place] [address], [place] [address] Sep, [facility] [address] [id number] [address] [place] [address], [place] [address] Sep, [facility] [address] [id number] [address] [place] [address], [place] [address] Sep, [facility] [address] [id number] [address] [place] [address], [place] [address] Sep, [facility] [address] [id number] [address] [place] [address], [place] [address] Aug, [facility] [address] [id number] [address] [place] [address], [place] [address] Aug, [facility] [address] [id number] [address] [place] [address], [place] [address] Jul, [facility] [address] [id number] [address] [place] [address], [place] [address] Jul, [facility] [address] [id number] [address] [place] [address], [place] [address] Jun, [facility] [address] [id number] [address] [place] [address], [place] [address] Jun, [facility] [address] [id number] [address] [place] [address], [place] [address] Jun, [facility] [address] [id number] [address] [place] [address], [place] [address] Jun, [facility] [address] [id number] [address] [place] [address], [place] [address] May, [facility] [address] [id number] [address] [place] [address], [place] [address] May, [facility] [address] [id number] [address] [place] [address], [place] [address] May, [facility] [address] [id number] [address] [place] [address], [place] [address] May, [facility] [address] [id number] [address] [place] [address], [place] [address] May, [facility] [address] [id number] [address] [place] [address], [place] [address] May, [facility] [address] [id number] [address] [place] [address], [place] [address] Apr, [facility] [address] [id number] [address] [place] [address], [place] [address] Apr, [facility] [address] [id number] [address] [place] [address], [place] [address] Apr, [facility] [address] [id number] [address] [place] [address], [place] [address] Apr, [facility] [address] [id number] [address] [place] [address], [place] [address] Mar, [facility] [address] [id number] [address] [place] [address], [place] [address] Mar, [facility] [address] [id number] [address] [place] [address], [place] [address] Mar, [facility] [address] [id number] [address] [place] [address], [place] [address] Mar, [facility] [address] [id number] [address] [place] [address], [place] [address] Feb, [facility] [address] [id number] [place] [id number] Jan, [facility] [address] [id number] [address] [place] [address], [place] [address] Jan, [facility] [address] [id number] [address] [place] [address], [place] [address] Dec, [facility] [address] [id number] [address] [place] [address], [place] [address] Dec, [facility] [address] [id number] [address] [place] [id number] Dec, [facility] [address] [id number] [place] [id number] Dec, [facility] [address] [id number] [address] [place] [phone] Nov, [facility] [address] [id number] [address] [place] [phone] 14 Nov, 2012 [facility] [address] [id number] [address] [place] [phone] Nov, [facility] [address] [id number] [address] [place] [address], [place] [address] Nov, [facility] [address] [id number] [address] [place] [phone] Nov, [facility] [address] [id number] [address] [place] [phone] October, [facility] [address] [id number] [address] [place] [phone] October, [facility] [address] [facility] [id number] [address] [place] [phone] Aug, [facility] [address] [facility] [id number] [address] [place] [phone] Nov, IMMUNIZATIONS No Known Immunizations SOCIAL HISTORY Never Assessed REASON FOR VISIT lamictal refill PLAN OF CARE VITAL SIGNS MEDICATIONS Medication Instructions Dosage Frequency Start Date End Date Duration S chandni Lamictal 100 MG Orally 2 times a day 1/2 tablet 12h Jun, Active RESULTS No Results PROCEDURES No [...]
--- OUTSIDE RECORDS SUMMARY | 2019-11-29 09:32 | XMS REPORT ---
Author Author Curt REBOLLAR [facility] eClinicalWorks Address Unknown Phone Unavailable Care Team Providers Care Accounting Professor Name Role Phone QUINTIN REBOLLAR CP Unavailable Allergies, Adverse Reactions, Alerts Substance Reaction Event Type Wheat throat swells Non Drug Allergy Egg White throat swells Non Drug Allergy Cows Milk throat swells Non Drug Allergy Peanuts throat swells Non Drug Allergy [place] throat swells Non Drug Allergy [place] throat swells Non Drug Allergy Ragweed throat swells Non Drug Allergy Problems Problem Type Condition ICD-9 Code Onset [...] 782.3 Active Problem Insomnia, unspecified 780.52 Active Assessment No condition on axis III V71.09 Act tommie Assessment No condition on [place] II V71.09 Acti ve Assessment Major depression, recurrent 296.30 Active Medications No Known Medications Procedures Procedure Coding System Code Date Psychotherapy, patient &/family, 45 minutes, established patient CPT-4 [id number] Jan 27, 2015 Results No Known Results Summary Purpose eClinicalWorks Submission
--- OUTSIDE RECORDS SUMMARY | 2019-11-29 09:32 | XMS REPORT ---
Author Author Curt REBOLLAR [facility] eClinicalWorks Address Unknown Phone Unavailable Care Team Providers Care Quick Sketch Artist Name Role Phone QUINTIN REBOLLAR Unavailable Allergies No Known Allergies Problems Problem Type Condition Code Onset Dates Condition Statu s Problem Hyperlipemia E78.5 Active Problem Renal insufficiency N28.9 Active Problem Type II diabetes mellitus E11.9 Ac tive Problem Edema R60.9 Active Problem Insomnia G47.00 Active Problem Major depression F32.9 Active Problem Morbid obesity E66.01 Active Problem Benign essential hypertension I10 Active Medications No Known Medications Results No Known Results Summary Purpose eClinicalWorks Submission
--- OUTSIDE RECORDS SUMMARY | 2019-11-29 09:33 | XMS REPORT ---
Author Author Curt REBOLLAR [facility] eClinicalWorks Address Unknown Phone Unavailable Care Team Providers Care Operations Supervisor [employer] Name Role Phone QUINTIN REBOLLAR CP Unavailable Allergies, Adverse Reactions, Alerts Substance Reaction Event Type Wheat throat swells Non Drug Allergy Egg White throat swells Non Drug Allergy Cows Milk throat swells Non Drug Allergy Peanuts throat swells Non Drug Allergy Tenerius [place] throat swells Non Drug Allergy [place] throat swells Non Drug Allergy Ragweed throat swells Non Drug Allergy Problems Problem Type Condition Code Onset Dates Condition Statu s Assessment Moderate episode of recurrent major depressive disorde r F33.1 Active Problem Major depression F32.9 Active Problem Hyperlipemia E78.5 Active Problem Edema R60.9 Active Problem Renal insufficiency N28.9 Active Problem Callus of foot L84 Active Problem Benign essential hypertension I10 Active Problem Insomnia G47.00 Active Problem Type II diabetes mellitus E11.9 Ac tive Problem Morbid obesity E66.01 Active Medications No Known Medications Procedures Procedure Coding System Code Date Psychotherapy, patient &/family, 30 minutes, established patient CPT-4 [id number] September 23, 2015 Results No Known Results Summary Purpose eClinicalWorks Submission
--- OUTSIDE RECORDS SUMMARY | 2019-11-29 09:33 | XMS REPORT ---
Author Author Curt DIAZ [facility] Address [address] [place] [address] Care Team Providers Care Purchasing Internship Name Role Phone JOE CHRIS Unavailable PROBLEMS Type Condition ICD9-CM Code BZO54-RD Code Onset Dates Condition S tatus SNOMED Code Problem Renal insufficiency N28.9 Active 081131908 Problem Callus of foot L84 Active 25235 1005 Problem Edema R60.9 Active 919065075 Problem Vitamin D deficiency E55.9 Active 40477004 Problem Anxiety F41.9 Active 22691052 Problem Acute bacterial conjunctivitis of left eye H10.32 Active 951509821 Problem Recurrent major depressive disorder, in partial remission F33.41 Active 41720422 Problem Severe episode of recurrent major depressive disorder, without psychotic features F33.2 Active 57916910 Problem Metabolic syndrome E88.81 Active 2 63749896 Problem Hyperlipemia E78.5 Active 9278667 4 Problem Type II diabetes mellitus E11.9 Acti ve 86499419 Problem Insomnia G47.00 Active 532350183 Problem Morbid obesity E66.01 Active 99302 6002 Problem Major depression F32.9 Active 370 296109 Problem Benign essential hypertension I10 Active 3827982 ALLERGIES Substance Reaction Event Type Date Status Egg White throat swells Non Drug Allergy Mar, Active Cows Milk throat swells Non Drug Allergy Mar, Active Wheat throat swells Non Drug Allergy Mar, Active Peanuts throat swells Non Drug Allergy Mar, Active Tenerius [place] throat swells Non Drug Allergy Mar, Active [place] throat swells Non Drug Allergy Mar, Active Ragweed throat swells Non Drug Allergy Mar, Active ENCOUNTERS Encounter Location Date Diagnosis [facility] [address] [facility] [id number] [address] [place] [address] October, [facility] [address] [facility] [id number] [place] [id number] October, [facility] [address] [id number] [place] [id number] Sep, [facility] [address] [id number] [place] [id number] Sep, [facility] [address] [id number] [place] [id number] Sep, [facility] [address] [id number] [place] [address] Sep, Hospital discharge follow-up Z09 ; Aller gic rhinitis, unspecified seasonality, unspecified trigger J30.9 and Shortness of breath R06.02 [facility] [address] [id number] [place] [id number] Sep, Recurrent major depressive disorder, in partial remission F33.41 [facility] [address] [place] [address] AVE [id number] [place] [id number] Aug, Irritable mood R45.4 [place] [address] [place] [id number] [address] [place] [address] Aug, [facility] [address] [place] [address] AV [id number] [place] [id number] Jul, Benign essential hypertension I10 ; Robert a R60.9 and Impacted cerumen of left ear H61.22 [place] [address] [place] [address] Jul, Major depression F32.9 ; Rec urrent major depressive disorder, in partial remission F33.41 and Anxiety F41.9 [place] [address] [place] [id number] [address] [place] [address] Jun, Major depression F32.9 ; Rec urrent major depressive disorder, in partial remission F33.41 and Anxiety F41.9 [facility] [address] [place] [address] AVE [id number] [place] [id number] Jun, Major depression F32.9 ; Morbid obesity E66.01 ; Irritable mood R45.4 ; Hand weakness R29.898 and Vitamin D deficiency E55.9 [facility] [address] [address] [id number] [place] [id number] Jun, [facility] [address] [id number] [place] [id number] May, Major depression F32.9 [place] [address] [facility] [id number] [address] [place] [address] May, Major depression F32.9 [facility] [id number] [place] [address] [id number] May, BMI 50.0-59.9, adult Z68.43 ; Major depr ession F32.9 ; Anxiety F41.9 ; Hypertrophic toenail L60.2 and Pain of left great toe M79.675 [facility] [id number] [place] [address] [id number] May, Recurrent major depressive disorder, in partial remission F33.41 [place] [address] [facility] [id number] [address] [place] [address] Apr, [facility] [address] [address] [id number] [place] [id number] Apr, [facility] [address] [facility] [id number] [address] [place] [address] Apr, Major depression F32.9 [facility] [address] [id number] [place] [id number] Apr, Severe episode of recurrent major depres sive disorder, without psychotic features F33.2 ; Anxiety F41.9 and Insomnia G47.00 [facility] [address] [address] [id number] [place] [id number] Apr, [facility] [address] [facility] [id number] [address] [place] [address] Apr, [facility] [address] [address] [id number] [place] [id number] Apr, [facility] [address] [id number] [place] [id number] Mar, [facility] [address] [facility] [address] [id number] [place] [id number] Mar, Allergic conjunctivitis of both eyes H10 .13 [facility] [address] [facility] [id number] [address] [place] [address] Mar, Major depression F32.9 [facility] [address] [facility] [address] [id number] [place] [id number] Mar, Metabolic syndrome E88.81 ; History of g astric bypass Z98.890 ; Benign essential hypertension I10 and Allergic conjunctivitis of both eyes H10.13 [facility] [address] [facility] [id number] [address] [place] [address] Mar, Major depression F32.9 [place] [address] [facility] [address] [id number] [place] [id number] Feb, [facility] [address] [facility] [id number] [address] [place] [address] Feb, Major depression F32.9 [place] [address] [facility] [address] [id number] [place] [address] [id number] Feb, Subacute maxillary sinusitis J01.00 and Bronchitis J40 [place] [address] [facility] [id number] [address] [place] [address] Feb, Major depressive disorder, r ecurrent, moderate F33.1 [facility] [address] [facility] [address] [id number] [place] [id number] Jan, [facility] [address] [id number] [place] [id number] Jan, Acute non-recurrent maxillary sinusitis J01.00 and Skin tag L91.8 [facility] [place] [address] [id number] [place], [place] [id number] Jan, Cough R05 and Sinus congestion R09.81 [facility] [place]RI[place] Bender[address] [place] [address] AVE [id number] [place] [id number] Jan, [facility] [id number] [place] [address] [id number] Jan, Benign essential hypertension I10 ; Hist ory of gastric bypass Z98.890 and Nausea and vomiting in adult R11.2 [place] [address] [place] [address] 04 Jan, 2017 Major depressive disorder, r ecurrent, moderate F33.1 [place] [address] [address] Dec, Insomnia G47.00 ; Recurrent major depressive disorder, in partial remission F33.41 and Morbid obesity E66.01 [facility] [address] [id number] [place] [address] [id number] Dec, [facility] [address] [id number] [place] [address] [id number] Dec, Chronic bacterial conjunctivitis of left eye H10.402 [facility] [address] [id number] [place] [address] [id number] Nov, [facility] [address] [id number] [place] [address] [id number] Nov, Dental examination Z01.20 [facility] [address] [id number] [place] [address] [id number] Nov, Benign essential hypertension I10 ; Hist ory of gastric bypass Z98.890 and Nausea and vomiting in adult R11.2 [place] [address] [place] [id number] [address] [place] [address] Nov, Major depressive disorder, r ecurrent, moderate F33.1 ; Generalized anxiety disorder F41.1 and Insomnia due to other mental disorder F51.05 [place] [address] [place] [id number] [address] [place] [address] Nov, Recurrent major depressive d isorder, in partial remission F33.41 ; Insomnia G47.00 and Morbid obesity E66.01 [facility] [address] [id number] Kiesha ESCOBEDO S [id number] October, Abscess of left arm L02.414 [place] [address] [facility] [id number] [address] [place] [address] October, Morbid obesity E66.01 ; Lida r depression F32.9 and Recurrent major depressive disorder, in partial remission F33.41 [facility] [address] [id number] [place] [id number] Sep, Benign essential hypertension I10 ; Morb id obesity E66.01 ; S/P gastric bypass Z98.84 ; Abscess L02.91 and Chronic bacterial conjunctivitis of left eye H10.[address] [id number] [place] [address] [id number] Sep, Dental examination Z01.20 [place] [address] [place] [id number] [address] [place] [address] Sep, Morbid obesity E66.01 ; Lida r depression F32.9 and Recurrent major depressive disorder, in partial remission F33.41 [place] [address] [place] [address] Jul, [place] [address] [place] [id number] [address] [place] [address] Jul, Major depressive disorder, r ecurrent, moderate F33.1 [place] [address] [place] [id number] [address] [place] [phone] Jul, Major depressive disorder, r ecurrent, moderate F33.1 and Generalized anxiety disorder F41.[address] [id number] [place], [place] [id number] Jul, Cough R05 [place] [address] [place] [id number] [address] [place] [address] 16 Jul, 2016 Morbid obesity E66.01 ; Lida r depression F32.9 and Recurrent major depressive disorder, in partial remission F33.41 [facility] [address] [id number] [place] [id number] Jul, [facility] [address] [address] [id number] [place] [id number] Jul, [place] [address] [id number] [place] [address] [id number] Jul, Gastroenteritis K52.9 and Cough R05 [facility] [address] [id number] [place], [place] [id number] Jun, Acute bacterial conjunctivitis of left e ye H10.32 [place] [address] [facility] [id number] [address] [place] [phone] Jun, [place] [address] [place] [id number] [address] [place] [phone] Jun, Recurrent major depressive d isorder, in partial remission F33.41 [place] [address] [facility] [id number] [address] [place] [address] May, Major depression F32.9 and M orbid obesity E66.01 [place] [address] [facility] [id number] [address] [place] [address] May, [facility] [address] [place] [address] AVE [id number] [place] [address] [id number] 16 May, 2016 Thrush B37.0 [place] [address] [place] [id number] [address] [place] [phone] 15 Apr, 2016 Major depressive disorder, r ecurrent, moderate F33.1 [place] [address] [place] [id number] [address] [place] [address] Apr, Insomnia G47.00 ; Major depr ession F32.9 and Recurrent major depressive disorder, in partial remission F33.41 [place] [address] [place] [id number] [address] [place] [address] Apr, [facility] [address] [facility] [id number] [address] [place] [address] Apr, Major depression F32.9 and R ecurrent major depressive disorder, in partial remission F33.[address] [place] [address] [id number] [place] [id number] Mar, Benign essential hypertension I10 ; Morb id obesity E66.01 ; Impacted cerumen of both ears H61.23 ; Laceration of finger of right hand, initial encounter S61.219A and Encounter for immunization Z23 [facility] [address] [facility] [id number] [address] [place] [phone] 17 Mar, 2016 [facility] [address] [facility] [id number] [address] [place] [phone] Mar, [facility] [address] [facility] [id number] [address] [place] [address] Mar, [address] [id number] [place] [id number] Feb, Nausea R11.0 ; Blood in the stool K92.1 and Benign essential hypertension I10 [facility] [address] [facility] [id number] [address] [place] [phone] Feb, Major depression F32.9 and R ecurrent major depressive disorder, in partial remission F33.41 [place] [address] [facility] [address] [id number] [place] [id number] Feb, [place] [address] [id number] [place] [id number] Feb, Recurrent major depressive disorder, in partial remission F33.[address] [place] [address] [id number] [place] [id number] Jan, [place] [address] [id number] [place] [id number] Jan, Benign essential hypertension I10 ; Robert a R60.9 and Hyperlipidemia, unspecified hyperlipidemia type E78.[address] [facility] [address] [address] [id number] [place] [id number] Jan, Recurrent major depressive disorder, in partial remission F33.41 [facility] [address] [id number] Kiesha ESCOBEDO S [id number] Jan, [facility] [place] [address] [id number] [place] [id number] Jan, [facility] [place] [address] [id number] [place] [id number] Jan, [facility] [address] [facility] [id number] [address] [place] [phone] Jan, [facility] [address] [facility] [id number] [address] [place] [address] Dec, [facility] [address] [facility] [id number] [address] [place] [address] Nov, [facility] [address] [facility] [id number] [address] [place] [phone] Nov, Major depression F32.9 [facility] [address] [facility] [id number] [address] [place] [address] Nov, [facility] [address] [facility] [id number] [address] [place] [phone] Nov, [facility] [address] [facility] [id number] [address] [place] [phone] Nov, Major depressive disorder, r ecurrent episode, mild F33.0 and Anxiety F41.9 [facility] [address] [id number] [place], [place] [id number] Nov, [facility] [place] [address] [id number] [place] [id number] October, Left elbow pain M25.522 and Other season al allergic rhinitis J30.2 [facility] [address] [address] [id number] [place] [id number] October, [facility] [address] [facility] [id number] [address] [place] [phone] October, Major depressive disorder, r ecurrent, moderate F33.1 [place] [address] [facility] [id number] [address] [place] [address] October, Major depression F32.9 [place] [address] [facility] [id number] [address] [place] [address] Sep, Harmony or callus L84 and Onych omycosis B35.1 [place] [address] [facility] [id number] [address] [place] [address] Sep, Major depressive disorder, r ecurrent, moderate F33.1 [place] [address] [facility] [id number] [address] [place] [address] Sep, Major depression F32.9 [place] [address] [facility] [id number] [address] [place] [address] Sep, Moderate episode of recurren t major depressive disorder F33.1 [facility] [id number] [place] [address] [id number] Sep, Muscle strain T14.8 [place] [address] [facility] [id number] [address] [place] [address] Aug, Major depression F32.9 [place] [address] [facility] [id number] [address] [place] [address] Aug, Major depression F32.9 [place] [address] [facility] [id number] [address] [place] [address] Jul, Morbid obesity E66.01 and Ma cora depression F32.9 [place] [address] [facility] [id number] [address] [place] [address] Jul, Depression, major, recurrent , moderate F33.1 [facility] [address] [id number] [place], [place] [id number] Jul, [place] [address] [facility] [id number] [address] [place] [address] Jul, [place] [address] [facility] [id number] [address] [place] [address] 16 Jul, 2015 Major depression F32.9 and M orbid obesity E66.01 [facility] [address] [facility] [address] [id number] [place], [place] [id number] 11 Jul, 2015 Type II diabetes mellitus E11.9 ; Callus of foot L84 ; Benign essential hypertension I10 and Renal insufficiency N28.9 [place] [address] [facility] [id number] [address] [place] [address] 09 Jul, 2015 Depression, major, recurrent , moderate F33.1 [place] [address] [facility] [id number] [address] [place] [phone] 05 Jul, 2015 Major depression F32.9 [place] [address] [place] [id number] [address] [place] [address] Jul, [place] [address] [place] [id number] [address] [place] [address] Jun, Major depression F32.9 [place] [address] [facility] [id number] [address] [place] [address] Jun, Major depressive disorder, r ecurrent, moderate F33.1 [place] [address] [place] [address] Jun, [place] [address] [facility] [id number] [address] [place] [address] Jun, Major depressive disorder, r ecurrent, moderate F33.1 and Major depression F32.9 [facility] [address] [place] [address] AVE [id number] [place], [place] [id number] Jun, Type II diabetes mellitus E11.9 [place] [address] [facility] [id number] [address] [place] [address] Jun, Depression, major, recurrent , moderate F33.1 [place] [address] [facility] [id number] [address] [place] [address] May, Major depressive disorder, r ecurrent, moderate F33.1 [place] [address] [facility] [id number] [address] [place] [address] May, [place] [address] [id number] [place] [id number] May, Edema R60.9 [place] [address] [facility] [id number] [address] [place] [address] May, Insomnia G47.00 and Major de pression F32.[address] [id number] [place] [address] [id number] 15 May, 2015 Morbid obesity E66.01 ; Edema R60.9 ; Sh ortness of breath R06.02 ; Benign essential hypertension I10 and Renal insufficiency N28.[id number] [place] [address] [id number] May, Hyperlipemia 272.4 and Renal insufficien cy N28.9 [place] [address] [facility] [id number] [address] [place] [address] Apr, Major depression F32.9 [place] [address] [facility] [id number] [address] [place] [address] Apr, [place] [address] [facility] [id number] [address] [place] [address] Apr, Major depressive disorder, r ecurrent, moderate F33.[address] [id number] [place] [address] [id number] 09 Apr, 2015 Type II diabetes mellitus E11.9 ; Benign essential hypertension I10 ; Edema R60.9 and Renal insufficiency N28.9 [place] [address] [facility] [id number] [address] [place] [address] Mar, Major depressive disorder, r ecurrent, moderate F33.1 [place] [address] [facility] [id number] [address] [place] [address] Mar, [place] [address] [facility] [id number] [address] [place] [address] Mar, Major depression F32.9 [id number] [place] [address] [id number] Mar, Morbid obesity E66.01 ; Benign essential hypertension I10 and Type II diabetes mellitus E11.9 [place] [address] [place] [id number] [address] [place] [phone] Feb, Major depressive disorder, r ecurrent, moderate F33.1 [place] [address] [facility] [id number] [address] [place] [phone] Feb, Major depressive disorder, r ecurrent episode, in partial or unspecified remission 296.35 ; Anxiety state, unspecified 300.00 and Morbid obesity 278.01 [place] [address] [facility] [id number] [address] [place] [address] Feb, [id number] [place] [address] [id number] Feb, Vomiting 787.03 and Viral syndrome 079.9 9 [place] [address] [place] [id number] [address] [place] [address] Feb, Major depression, recurrent 296.30 ; Generalized anxiety disorder 300.02 and No condition on [place] II V71.[address] [id number] [place] [address] [id number] Feb, Skin tag 701.9 [place] [address] [facility] [id number] [address] [place] [address] Feb, [address] [id number] [address] [place] [address] Jan, Depression, major, recurrent , moderate 296.[address] [id number] [place] [address] [id number] Jan, Nausea and vomiting 787.01 ; Rib pain on right side 786.50 and Fall on or from sidewalk curb E880.1 [facility] [address] [facility] [id number] [address] [place] [id number] Jan, [facility] [address] [place] [id number] [address] [place] [id number] Jan, Major depressive disorder, r ecurrent episode, in partial or unspecified remission 296.35 and Anxiety state, unspecified 300.00 [facility] [address] [place] [address] AVE [id number] [place] [id number] Jan, [facility] [address] [facility] [id number] [address] [place] [id number] Jan, Depression, major, recurrent , moderate 296.32 [place] [id number] [address] [place] [phone] Jan, Major depression, recurrent 296.30 ; No condition on [place] II V71.09 and No condition on axis III V71.[address] [id number] [place] [id number] Jan, Drug-induced nausea and vomiting 787.[address] [id number] Jan, Depression, major, recurrent , moderate 296.32 [place] [id number] [address] [place] [id number] Dec, Depression, major, recurrent , moderate 296.32 [address] [address]REETE [id number] [id number] Dec, Morbid obesity 278.01 ; Metabolic syndro me 277.7 ; Hyperlipemia 272.4 ; Benign essential hypertension 401.1 ; Dietary counseling V65.3 ; Exercise counseling V65.41 and Inflamed skin tag 701.[address] [id number] [address] [place] [address] Dec, Depression, major, recurrent , moderate 296.[address] [address] Dec, [place] [address] [address] Dec, Major depression, recurrent 296.30 ; Anxiety, generalized 300.02 and No condition on [place] II V71.09 [place] [address] [address] Dec, Depression, major, recurrent , moderate 296.32 [place] [address] [address] [place] [address] Dec, Major depressive disorder, r ecurrent episode, moderate 296.32 [place] [address] Dec, Depression, major, recurrent , moderate 296.[address] [address] Dec, Depression, major, recurrent , moderate 296.32 [place] [address] [address] Dec, Depression, major, recurrent , moderate 296.32 [place] [id number] Dec, Depression, major, recurrent , moderate [address] [address] Nov, Depression, major, recurrent , moderate 296.[address] [address] Nov, Major depression 296.20 ; So cial phobia 300.23 and No condition on [place] II V71.09 [place] [id number] Nov, Depression, major, recurrent , moderate 296.[address] [address] Nov, Major depressive disorder, r ecurrent episode, moderate 296.32 and Generalized anxiety disorder 300.02 [facility] [address] [id number] [address] [place] [address] 09 Nov, 2014 Depression, major, recurrent , moderate 296.32 [facility] [address] [id number] [address] [place] [address] 04 Nov, 2014 Depression, major, recurrent , moderate 296.32 [facility] [address] [id number] [address] [place] [address] October, Generalized anxiety disorder 300.02 ; No condition on [place] II V71.09 and Major depressive disorder, recurrent 296.30 [facility] [address] [id number] [address] [place] [address] 14 Sep, 2014 [facility] [address] [id number] [address] [place] [address] Sep, [facility] [address] [id number] [address] [place] [address] 24 Aug, 2014 [facility] [address] [id number] [address] [place] [address] 24 Aug, 2014 [facility] [address] [id number] [address] [place] [address] Aug, [facility] [address] [id number] [address] [place] [address] Aug, [facility] [address] [id number] [address] [place] [address] 20 Aug, 2014 [facility] [address] [id number] [address] [place] [address] Aug, [facility] [address] [id number] [address] [place] [address] Aug, [facility] [address] [id number] [address] [place] [address] Aug, [facility] [address] [id number] [address] [place] [address] 13 Aug, 2014 [facility] [address] [id number] [facility] [place] [address] 13 Aug, 2014 [facility] [address] [id number] [address] [place] [address], [place] [address] 13 Aug, 2014 [facility] [address] [id number] [address] [place] [address], [place] [address] 13 Aug, 2014 [facility] [address] [id number] [address] [place] [address], [place] [address] Aug, [facility] [address] [id number] [address] [place] [address], [place] [address] Aug, [facility] [address] [id number] [address] [place] [address], [place] [address] Aug, [facility] [address] [id number] [address] [place] [address], [place] [address] Aug, [facility] [address] [id number] [address] [place] [address], [place] [address] Aug, [facility] [address] [id number] [address] [place] [address], [place] [address] Aug, [facility] [address] [id number] [address] [place] [address], [place] [address] 24 Jul, 2014 [facility] [address] [id number] [address] [place] [address], [place] [address] Jul, 2014 [facility] [address] [id number] [address] [place] [address], [place] [address] Jul, 2014 [facility] [address] [id number] [address] [place] [address], [place] [address] Jul, 2014 [facility] [address] [id number] [address] [place] [address], [place] [address] Jul, 2014 [facility] [address] [id number] [address] [place] [address], [place] [address] Jul, 2014 [facility] [address] [id number] [address] [place] [address], [place] [address] Jun, [facility] [address] [id number] [address] [place] [address], [place] [address] Jun, [facility] [address] [id number] [address] [place] [address], [place] [address] Jun, [facility] [address] [id number] [address] [place] [address], [place] [address] Jun, [facility] [address] [id number] [address] [place] [address], [place] [address] Jun, [facility] [address] [id number] [address] [place] [address], [place] [address] Jun, [facility] [address] [id number] [address] [place] [address], [place] [address] Jun, [facility] [address] [id number] [address] [place] [address], [place] [address] Jun, [facility] [address] [id number] [address] [place] [address], [place] [address] Jun, [facility] [address] [id number] [address] [place] [address], [place] [address] Jun, [facility] [address] [id number] [address] [place] [address], [place] [address] Jun, [facility] [address] [id number] [address] [place] [address], [place] [address] Jun, [facility] [place] [address] [id number] [id number] Jun, [facility] [address] [id number] [address] [place] [address], [place] [address] Jun, [facility] [address] [id number] [address] [place] [address], [place] [address] Jun, [facility] [address] [id number] [address] [place] [address] Jun, [facility] [address] [id number] [address] [place] [address], [place] [address] May, [facility] [address] [id number] [address] [place] [address], [place] [address] May, [facility] [address] [id number] [address] [place] [address], [place] [address] May, [facility] [address] [id number] [address] [place] [address], [place] [address] May, [facility] [address] [id number] [address] [place] [address], [place] [address] Apr, [facility] [address] [id number] [address] [place] [address], [place] [address] Apr, [facility] [address] [id number] [address] [place] [address], [place] [address] Apr, [facility] [address] [id number] [address] [place] [address], [place] [address] Apr, [facility] [address] [id number] [address] [place] [address], [place] [address] Apr, [facility] [address] [id number] [address] [place] [address], [place] [address] Apr, [facility] [address] [id number] [address] [place] [address], [place] [address] Apr, [facility] [address] [id number] [address] [place] [address] Apr, [facility] [address] [id number] [address] [place] [address], [place] [address] Apr, [facility] [address] [id number] [address] [place] [address], [place] [address] Apr, [facility] [address] [id number] [address] [place] [address], [place] [address] Apr, [facility] [address] [id number] [address] [place] [address] Apr, [facility] [address] [id number] [address] [place] [address], [place] [address] Apr, [facility] [address] [id number] [address] [place] [address] Apr, [facility] [address] [id number] [address] [place] [address], [place] [address] Apr, [facility] [address] [id number] [address] [place] [address] Apr, [facility] [address] [id number] [address] [place] [address], [place] [address] Apr, [facility] [address] [id number] [address] [place] [address], [place] [address] Apr, [facility] [address] [id number] [address] [place] [address] Apr, [facility] [address] [id number] [address] [place] [address], [place] [address] Apr, [facility] [address] [id number] [address] [place] [address] Mar, [facility] [address] [id number] [address] [place] [address] Mar, [facility] [address] [id number] [address] [place] [address] Mar, [facility] [address] [id number] [address] [place] [address] Mar, [facility] [address] [id number] [address] [place] [address] Mar, [facility] [address] [id number] [address] [place] [address] Mar, [facility] [address] [id number] [address] [place] [address], [place] [address] Mar, [facility] [address] [id number] [address] [place] [address], [place] [address] Mar, [facility] [address] [id number] [address] [place] [address], [place] [address] Mar, [facility] [address] [id number] [address] [place] [address], [place] [address] Mar, [facility] [address] [id number] [address] [place] [address], [place] [address] Feb, [facility] [address] [id number] [address] [place] [address], [place] [address] Feb, [facility] [address] [id number] [address] [place] [address], [place] [address] Feb, [facility] [address] [id number] [address] [place] [address], [place] [address] Feb, [facility] [address] [id number] [address] [place] [address], [place] [address] Jan, [facility] [address] [id number] [address] [place] [address], [place] [address] Jan, [facility] [address] [id number] [address] [place] [address], [place] [address] Jan, [facility] [address] [id number] [address] [place] [address], [place] [address] Jan, [facility] [address] [id number] [address] [place] [address], [place] [address] Jan, [facility] [address] [id number] [address] [place] [address], [place] [address] Jan, [facility] [address] [id number] [address] [place] [address], [place] [address] Dec, [facility] [address] [id number] [address] [place] [address], [place] [address] Dec, [facility] [address] [id number] [address] [place] [address], [place] [address] Nov, [facility] [address] [id number] [facility] [place] [address] Nov, [facility] [address] [id number] [facility] [place] [address] Nov, [facility] [address] [id number] [facility] [place] [address] Nov, [facility] [address] [id number] [address] [place] [address], [place] [address] Nov, [facility] [address] [id number] [address] [place] [address], [place] [address] Nov, [facility] [address] [id number] [address] [place] [address], [place] [address] Sep, [facility] [address] [id number] [address] [place] [address], [place] [address] Sep, [facility] [address] [id number] [address] [place] [address], [place] [address] Sep, [facility] [address] [id number] [address] [place] [address], [place] [address] Sep, [facility] [address] [id number] [address] [place] [address], [place] [address] Aug, [facility] [address] [id number] [address] [place] [address], [place] [address] Aug, [facility] [address] [id number] [address] [place] [address], [place] [address] Jul, [facility] [address] [id number] [address] [place] [address], [place] [address] Jul, [facility] [address] [id number] [address] [place] [address], [place] [address] Jun, [facility] [address] [id number] [address] [place] [address], [place] [address] Jun, [facility] [address] [id number] [address] [place] [address], [place] [address] 16 Jun, 2013 [facility] [address] [id number] [address] [place] [address], [place] [address] Jun, [facility] [address] [id number] [address] [place] [address], [place] [address] May, [facility] [address] [id number] [address] [place] [address], [place] [address] 24 May, 2013 [facility] [address] [id number] [address] [place] [address], [place] [address] May, [facility] [address] [id number] [address] [place] [address], [place] [address] 13 May, 2013 [facility] [address] [id number] [address] [place] [address], [place] [address] May, [facility] [address] [id number] [address] [place] [address], [place] [address] May, [facility] [address] [id number] [address] [place] [address], [place] [address] Apr, [facility] [address] [id number] [address] [place] [address], [place] [address] Apr, [facility] [address] [id number] [address] [place] [address], [place] [address] 07 Apr, 2013 [facility] [address] [id number] [address] [place] [address], [place] [address] 07 Apr, 2013 [facility] [address] [id number] [address] [place] [address], [place] [address] Mar, [facility] [address] [id number] [address] [place] [address], [place] [address] Mar, [facility] [address] [id number] [address] [place] [address], [place] [address] 18 Mar, 2013 [facility] [address] [id number] [address] [place] [address], [place] [address] Mar, [facility] [address] [id number] [address] [place] [address], [place] [address] Feb, [facility] [place] [address] [id number] [place] [id number] Jan, [facility] [address] [id number] [address] [place] [address], [place] [address] Jan, [facility] [address] [id number] [address] [place] [address], [place] [address] Dec, [facility] [address] [id number] [address] [place] [address], [place] [address] Dec, [facility] [address] [id number] [address] [place] [address], [place] [address] Dec, [facility] [address] [id number] [place] [id number] Dec, [facility] [address] [id number] [address] [place] [address], [place] [address] Nov, [facility] [address] [id number] [address] [place] [address], [place] [address] Nov, [facility] [address] [id number] [address] [place] [address], [place] [address] Nov, [facility] [address] [id number] [address] [place] [address], [place] [address] Nov, [facility] [address] [id number] [address] [place] [address], [place] [address] Nov, [facility] [address] [id number] [address] [place] [address], [place] [address] October, [facility] [address] [id number] [address] [place] [address], [place] [address] October, [facility] [address] [id number] [address] [place] [address], [place] [address] Aug, [facility] [address] [id number] [address] [place] [address], [place] [address] Nov, IMMUNIZATIONS No Known Immunizations SOCIAL HISTORY Never Assessed REASON FOR VISIT Blood Pressure bferrisma PLAN OF CARE Activity Details Follow Up 6 Months Reason:BP/weight VITAL SIGNS Height 71.5 in 2017-04-03 Weight 369.3 lbs 2017-04-03 Temperature 97.8 degrees Fahrenheit 2017-04-03 Heart Rate 78 bpm 2017-04-03 Respiratory Rate 18 2017-04-03 BMI 50.78 kg/m2 2017-04-03 Blood pressure systolic 138 mmHg 2017-04-03 Blood pressure diastolic 88 mmHg 2017-04-03 MEDICATIONS Medication Instructions Dosage Frequency Start Date End Date Duration S tatus Lisinopril 40 mg Orally Once a day 1 tablet 24h Active Flovent HFA 110 mcg/actuation inhalation once per day 1-3 Puffs 1 time per day October, 0 Active Cetirizine HCl 10 mg Orally Once a day 1 tablet 24h Active Trazodone HCl 50 mg Orally Once a day 0.5 - 1 tablet at bedtime as needed 24h Nov, 30 days Active Centrum - Active Zofran 8 MG Orally Once a day 1 tablet 24h A ctive Montelukast Sodium 10 MG TAKE ONE TABLET BY MOUTH DAILY Active Trintellix 20 MG Orally Once a day in morning 1 tablet 30 days Active Flonase 50 mcg/act nasally once per day 1 spray (50 mcg) in each nostril by intranasal route 2 times per day Nov, Active Omeprazole 40 MG Orally Once a day 1 tablet 24h 0 da ys Active Vitamin D-3 1000 UNIT Orally Once a day 2 capsule 24h Active Patanol 0.1 % Ophthalmic Twice a day 1 drop into affected eye 12h Mar, Active Atenolol 100 mg Orally Once a day 1 tablet 24h Active RESULTS Name Result Date Reference Range A1C (IN HOUSE) 2017-04-03 A1C IN HOUSE 5.9 4.3 - 5.6 % Previous A1c 6.3 Lot [id number] Exp date 12/2018 PROCEDURES Procedure Date Ordered Result Body Site GLYCATED HEMOGLOBIN TEST Apr 03, 2017 INSTRUCTIONS MEDICATIONS ADMINISTERED No Known Medications [...]
--- OUTSIDE RECORDS SUMMARY | 2019-11-29 09:33 | XMS REPORT ---
Author Author Curt DIAZ [facility] Address [address] [place] [address] Care Team Providers Care Galvanizer Zinc Name Role Phone CHRIS DIAZ Unavailable PROBLEMS Type Condition ICD9-CM Code [id number] Code Onset Dates Condition S tatus SNOMED Code Problem Recurrent major depressive disorder, in partial remission F33.41 Active 49302949 Problem Metabolic syndrome E88.81 Active 2 81097387 Problem Acute bacterial conjunctivitis of left eye H10.32 Active 603874957 Problem DANIELA (generalized anxiety disorder) F41.1 Active 63770549 Problem BMI 45.0-49.9, adult Z68.42 Active 263184533 Problem Anxiety F41.9 Active 06767007 Problem Severe episode of recurrent major depressive disorder, without psychotic features F33.2 Active 81775644 Problem Mixed obsessional thoughts and acts F42.2 Active 19336048 Problem Vitamin D deficiency E55.9 Active 92115581 Problem Insomnia G47.00 Active 750740657 Problem Major depression F32.9 Active 370 593570 Problem Hyperlipemia E78.5 Active 0288409 4 Problem Benign essential hypertension I10 Active 0500529 Problem Renal insufficiency N28.9 Active 556764809 Problem Morbid obesity E66.01 Active 67011 6002 Problem Edema R60.9 Active 575350196 Problem Type II diabetes mellitus E11.9 Acti ve 51887426 Problem Callus of foot L84 Active 11657 1005 ALLERGIES Substance Reaction Event Type Date Status Egg White throat swells Non Drug Allergy May, Active Cows Milk throat swells Non Drug Allergy May, Active Wheat throat swells Non Drug Allergy May, Active Peanuts throat swells Non Drug Allergy May, Active Tenerius Endeavor throat swells Non Drug Allergy May, Active Angelina throat swells Non Drug Allergy May, Active Ragweed throat swells Non Drug Allergy May, Active ENCOUNTERS Encounter Location Date Diagnosis [facility] [address] [facility] [id number] [address] [place] [address] Nov, [facility] [address] [id number], [place] [id number] October, [facility] [address] [id number], [place] [id number] October, [facility] [address] [facility] [id number] [address] [place] [address] October, BMI 45.0-49.9, adult Z68.42 ; Mixed obsessional thoughts and acts F42.2 ; Recurrent major depressive disorder, in partial remission F33.41 and DANIELA (generalized anxiety disorder) F41.1 [facility] [address] [id number], [place] [id number] October, Benign essential hypertension I10 ; Morb id obesity E66.01 and BMI 45.0-49.9, adult Z68.42 [facility] [address] [id number], [place] [id number] Sep, [facility] [address] [id number], [place] [id number] Sep, [facility] [address] [id number], [place] [id number] Sep, [facility] [address] [id number], [place] [id number] Sep, Hospital discharge follow-up Z09 ; Aller gic rhinitis, unspecified seasonality, unspecified trigger J30.9 and Shortness of breath R06.02 [facility] [address] [id number], [place] [id number] Sep, Recurrent major depressive disorder, in partial remission F33.41 [facility] [address] [id number], [place] [id number] Aug, Irritable mood R45.4 [facility] [address] [facility] [id number] [address] [place] [phone] Aug, [facility] [address] [id number], [place] [id number] Jul, Benign essential hypertension I10 ; Robert a R60.9 and Impacted cerumen of left ear H61.22 [place] [address] [facility] [id number] [address] [place] [id number] 14 Jul, 2017 Major depression F32.9 ; Rec urrent major depressive disorder, in partial remission F33.41 and Anxiety F41.9 [place] [address] [facility] [id number] [address] [place] [address] Jun, Major depression F32.9 ; Rec urrent major depressive disorder, in partial remission F33.41 and Anxiety F41.[address] [place] [address] [id number], [place] [id number] Jun, Major depression F32.9 ; Morbid obesity E66.01 ; Irritable mood R45.4 ; Hand weakness R29.898 and Vitamin D deficiency E55.[address] [place] [address] [id number], [place] [id number] Jun, [place] [address] [id number], [place] [id number] May, Major depression F32.9 [place] [address] [facility] [id number] [address] [place] [address] May, Major depression F32.9 [facility] [address] [id number], [place] [id number] May, BMI 50.0-59.9, adult Z68.43 ; Major depr ession F32.9 ; Anxiety F41.9 ; Hypertrophic toenail L60.2 and Pain of left great toe M79.[address] [place] [address] [id number], [place] [id number] May, Recurrent major depressive disorder, in partial remission F33.41 [place] [address] [facility] [id number] [address] [place] [address] Apr, [facility] [address] [id number], [place] [id number] Apr, [facility] [address] [facility] [id number] [address] [place] [address] Apr, Major depression F32.9 [facility] [address] [id number], [place] [id number] Apr, Severe episode of recurrent major depres sive disorder, without psychotic features F33.2 ; Anxiety F41.9 and Insomnia G47.00 [facility] [address] [id number], [place] [id number] Apr, [facility] [address] [facility] [id number] [address] [place] [address] Apr, [facility] [address] [id number], [place] [id number] Apr, [facility] [address] [id number], [place] [id number] Mar, [facility] [id number] [place] [address] [id number] Mar, Allergic conjunctivitis of both eyes H10 .13 [facility] [address] [facility] [id number] [address] [place] [address] Mar, Major depression F32.9 [facility] [address] [id number], [place] [id number] Mar, Metabolic syndrome E88.81 ; History of g astric bypass Z98.890 ; Benign essential hypertension I10 and Allergic conjunctivitis of both eyes H10.13 [facility] [address] [facility] [id number] [address] [place] [address] Mar, Major depression F32.9 [facility] [address] [id number], [place] [id number] Feb, [facility] [address] [facility] [id number] [address] [place] [address] 12 Feb, 2017 Major depression F32.9 [place] [address] [facility] [id number] [place] [address] [id number] Feb, Subacute maxillary sinusitis J01.00 and Bronchitis J40 [facility] [address] [facility] [id number] [address] [place] [address] Feb, Major depressive disorder, r ecurrent, moderate F33.1 [facility] [address] [facility] [address] [id number], [place] [id number] Jan, [facility] [address] [id number] [place] [address] [id number] Jan, Acute non-recurrent maxillary sinusitis J01.00 and Skin tag L91.[address] [id number] [place] [address] [id number] Jan, Cough R05 and Sinus congestion R09.[address] [id number] [place] [address] [id number] Jan, [address] [id number] [place] [address] [id number] Jan, Benign essential hypertension I10 ; Hist ory of gastric bypass Z98.890 and Nausea and vomiting in adult R11.2 [place] [address] [place] [id number] [address] [place] [address] Jan, Major depressive disorder, r ecurrent, moderate F33.1 [facility] [address] [facility] [id number] [address] [place] [address] Dec, Insomnia G47.00 ; Recurrent major depressive disorder, in partial remission F33.41 and Morbid obesity E66.01 [facility] [address] [facility] [address] [id number], [place] [id number] Dec, [address] [id number] [place] [address] [id number] Dec, Chronic bacterial conjunctivitis of left eye H10.402 [place] [address] [facility] [id number], [place] [id number] 27 Nov, [address] [id number], [place] [id number] Nov, Dental examination Z01.[address] [id number], [place] [id number] 23 Nov, 2016 Benign essential hypertension I10 ; Hist ory of gastric bypass Z98.890 and Nausea and vomiting in adult R11.2 [place] [address] [facility] [id number] [address] [place] [address] 13 Nov, 2016 Major depressive disorder, r ecurrent, moderate F33.1 ; Generalized anxiety disorder F41.1 and Insomnia due to other mental disorder F51.05 [place] [address] [facility] [id number] [address] [place] [address] 12 Nov, 2016 Recurrent major depressive d isorder, in partial remission F33.41 ; Insomnia G47.00 and Morbid obesity E66.01 [facility] [address] [id number] [place] [id number] October, Abscess of left arm L02.414 [place] [address] [facility] [id number] [address] [place] [address] October, Morbid obesity E66.01 ; Lida r depression F32.9 and Recurrent major depressive disorder, in partial remission F33.41 [address] [id number], [place] [id number] Sep, Benign essential hypertension I10 ; Morb id obesity E66.01 ; S/P gastric bypass Z98.84 ; Abscess L02.91 and Chronic bacterial conjunctivitis of left eye H10.[address] [id number], [place] [id number] 17 Sep, 2016 Dental examination Z01.20 [facility] [address] [facility] [id number] [address] [place] [address] 11 Sep, 2016 Morbid obesity E66.01 ; Lida r depression F32.9 and Recurrent major depressive disorder, in partial remission F33.41 [facility] [address] [facility] [id number] [address] [place] [address] Jul, [facility] [address] [facility] [id number] [address] [place] [address] Jul, Major depressive disorder, r ecurrent, moderate F33.1 [place] [address] [facility] [id number] [address] [place] [address] Jul, Major depressive disorder, r ecurrent, moderate F33.1 and Generalized anxiety disorder F41.1 [facility] [id number] [place] [address] [id number] Jul, Cough R05 [place] [address] [facility] [id number] [address] [place] [address] Jul, Morbid obesity E66.01 ; Lida r depression F32.9 and Recurrent major depressive disorder, in partial remission F33.41 [facility] [id number] [place] [address] [id number] Jul, [facility] [id number] [place] [address] [id number] Jul, [place] [address] [id number] [place] [address] [id number] Jul, Gastroenteritis K52.9 and Cough R05 [place] [address] [id number] [place] [address] [id number] Jun, Acute bacterial conjunctivitis of left e ye H10.32 [place] [address] [facility] [id number] [address] [place] [address] Jun, [place] [address] [facility] [id number] [address] [place] [address] Jun, Recurrent major depressive d isorder, in partial remission F33.41 [place] [address] [facility] [id number] [address] [place] [address] May, Major depression F32.9 and M orbid obesity E66.01 [facility] [address] [facility] [id number] [address] [place] [address] May, [facility] [address] [facility] [address] [id number] [place] [address] [id number] May, Thrush B37.0 [facility] [address] [facility] [id number] [address] [place] [address] Apr, Major depressive disorder, r ecurrent, moderate F33.1 [facility] [address] [facility] [id number] [address] [place] [address] Apr, Insomnia G47.00 ; Major depr ession F32.9 and Recurrent major depressive disorder, in partial remission F33.41 [place] [address] [facility] [id number] [address] [place] [address] Apr, [place] [address] [facility] [id number] [address] [place] [address] Apr, Major depression F32.9 and R ecurrent major depressive disorder, in partial remission F33.[id number] [place] [address] [id number] Mar, Benign essential hypertension I10 ; Morb id obesity E66.01 ; Impacted cerumen of both ears H61.23 ; Laceration of finger of right hand, initial encounter S61.219A and Encounter for immunization Z23 [facility] [address] [facility] [id number] [address] [place] [phone] Mar, [facility] [address] [facility] [id number] [address] [place] [address] Mar, [place] [address] [facility] [id number] [address] [place] [address] Mar, [address] [id number], [place] [id number] Feb, Nausea R11.0 ; Blood in the stool K92.1 and Benign essential hypertension I10 [facility] [address] [facility] [id number] [address] [place] [address] Feb, Major depression F32.9 and R ecurrent major depressive disorder, in partial remission F33.[address] [facility] [address] [id number], [place] [id number] Feb, [facility] [address] [id number], [place] [id number] Feb, Recurrent major depressive disorder, in partial remission F33.[address] [facility] [address] [id number], [place] [id number] Jan, [facility] [address] [id number], [place] [id number] Jan, Benign essential hypertension I10 ; Robert a R60.9 and Hyperlipidemia, unspecified hyperlipidemia type E78.5 [facility] [address] [id number], [place] [id number] Jan, Recurrent major depressive disorder, in partial remission F33.41 [facility] [address] [id number] [place] [id number] Jan, [facility] [address] [id number], [place] [id number] Jan, [facility] [address] [id number], [place] [id number] Jan, [facility] [address] [facility] [id number] [address] [place] [address] Jan, [facility] [address] [facility] [id number] [address] [place] [address] Dec, [facility] [address] [facility] [id number] [address] [place] [address] Nov, [facility] [address] [facility] [id number] [address] [place] [address] Nov, Major depression F32.9 [facility] [address] [facility] [id number] [address] [place] [address] Nov, [facility] [address] [facility] [id number] [address] [place] [address] Nov, [facility] [address] [facility] [id number] [address] [place] [address] Nov, Major depressive disorder, r ecurrent episode, mild F33.0 and Anxiety F41.9 [facility] [id number] [place] [address] [id number] Nov, [place] [id number] [place] [address] [id number] October, Left elbow pain M25.522 and Other season al allergic rhinitis J30.2 [facility] [address] [facility] [address] [id number] [place] [address] [id number] October, [place] [address] [facility] [id number] [address] [place] [address] October, Major depressive disorder, r ecurrent, moderate F33.1 [facility] [address] [facility] [id number] [address] [place] [address] October, Major depression F32.9 [place] [address] [facility] [id number] [address] [place] [address] Sep, Francis or callus L84 and Onych omycosis B35.1 [place] [address] [facility] [id number] [address] [place] [address] Sep, Major depressive disorder, r ecurrent, moderate F33.1 [facility] [address] [facility] [id number] [address] [place] [address] Sep, Major depression F32.9 [place] [address] [facility] [id number] [address] [place] [address] Sep, Moderate episode of recurren t major depressive disorder F33.1 [facility] [id number] [place] [address] [id number] Sep, Muscle strain T14.8 [facility] [address] [facility] [id number] [address] [place] [address] Aug, Major depression F32.9 [facility] [address] [facility] [id number] [address] [place] [id number] Aug, Major depression F32.9 [facility] [address] [facility] [id number] [address] [place] [address] Jul, Morbid obesity E66.01 and Ma cora depression F32.9 [facility] [address] [facility] [id number] [address] [place] [address] Jul, Depression, major, recurrent , moderate F33.1 [facility] [address] [facility] [address] [id number] [place] [address] [id number] Jul, [facility] [address] [facility] [id number] [address] [place] [address] Jul, [facility] [address] [facility] [id number] [address] [place] [address] Jul, Major depression F32.9 and M orbid obesity E66.01 [facility] [id number] [place] [address] [id number] Jul, Type II diabetes mellitus E11.9 ; Callus of foot L84 ; Benign essential hypertension I10 and Renal insufficiency N28.9 [facility] [address] [facility] [id number] [address] [place] [address] Jul, Depression, major, recurrent , moderate F33.1 [facility] [address] [facility] [id number] [address] [place] [address] Jul, Major depression F32.9 [facility] [address] [facility] [id number] [address] [place] [address] Jul, [facility] [address] [facility] [id number] [address] [place] [address] Jun, Major depression F32.9 [place] [address] [facility] [id number] [address] [place] [address] Jun, Major depressive disorder, r ecurrent, moderate F33.1 [place] [address] [facility] [id number] [address] [place] [address] Jun, [place] [address] [facility] [id number] [address] [place] [address] Jun, Major depressive disorder, r ecurrent, moderate F33.1 and Major depression F32.[address] [id number] [place] [address] [id number] Jun, Type II diabetes mellitus E11.9 [place] [address] [facility] [id number] [address] [place] [address] Jun, Depression, major, recurrent , moderate F33.1 [place] [address] [place] [id number] [address] [place] [address] May, Major depressive disorder, r ecurrent, moderate F33.1 [place] [id number] [place] [address] May, [address] [id number] [place] [address] [id number] May, Edema R60.9 [place] [address] [place] [id number] [address] [place] [address] 17 May, 2015 Insomnia G47.00 and Major de pression F32.[address] [id number] [place] [address] [id number] 15 May, 2015 Morbid obesity E66.01 ; Edema R60.9 ; Sh ortness of breath R06.02 ; Benign essential hypertension I10 and Renal insufficiency N28.[address] [id number] [place] [address] [id number] 14 May, 2015 Hyperlipemia 272.4 and Renal insufficien cy N28.9 [place] [address] [place] [id number] [address] [place] [address] Apr, Major depression F32.9 [facility] [address] [facility] [id number] [address] [place] [address] Apr, [facility] [address] [facility] [id number] [address] [place] [address] Apr, Major depressive disorder, r ecurrent, moderate F33.1 [facility] [id number] [place] [address] [id number] Apr, Type II diabetes mellitus E11.9 ; Benign essential hypertension I10 ; Edema R60.9 and Renal insufficiency N28.9 [place] [address] [facility] [id number] [address] [place] [id number] Mar, Major depressive disorder, r ecurrent, moderate F33.1 [place] [address] [address] [place] [id number] [address] [place] [phone] Mar, [place] [address] [address] [place] [id number] [address] [place] [phone] Mar, Major depression F32.9 [facility] [address] [place] [address] [id number] [place] [id number] Mar, Morbid obesity E66.01 ; Benign essential hypertension I10 and Type II diabetes mellitus E11.9 [place] [address] [address] [facility] [id number] [address] [place] [phone] Feb, Major depressive disorder, r ecurrent, moderate F33.1 [place] [address] [address] [facility] [id number] [address] [place] [id number] Feb, Major depressive disorder, r ecurrent episode, in partial or unspecified remission 296.35 ; Anxiety state, unspecified 300.00 and Morbid obesity 278.01 [place] [address] [address] [facility] [id number] [address] [place] [phone] Feb, [facility] [address] [id number] [id number] Feb, Vomiting 787.03 and Viral syndrome 079.9 9 [facility] [address] [facility] [id number] [address] [place] [id number] 15 Feb, 2015 Major depression, recurrent 296.30 ; Generalized anxiety disorder 300.02 and No condition on [place] II V71.09 [facility] [address] [place] [address] AVE [id number] [id number] Feb, 2015 Skin tag 701.9 [facility] [address] [place] [id number] [address] [place] [phone] Feb, [facility] [address] [facility] [id number] [address] [place] [phone] Jan, Depression, major, recurrent , moderate 296.[address] [id number] [id number] Jan, Nausea and vomiting 787.01 ; Rib pain on right side 786.50 and Fall on or from sidewalk curb E880.1 [facility] [id number] [place] [address] Jan, [facility] [address] [place] [id number] [address] [place] [address] Jan, Major depressive disorder, r ecurrent episode, in partial or unspecified remission 296.35 and Anxiety state, unspecified 300.[address] [id number] [id number] Jan, [facility] 301 N [facility] [id number] [address] [place] [address] Jan, Depression, major, recurrent , moderate 296.32 [facility] [address] N [facility] [id number] [address] [place] [address] Jan, Major depression, recurrent 296.30 ; No condition on De Ruyter II V71.09 and No condition on axis III V71.[address] [id number] [id number] Jan, Drug-induced nausea and vomiting 787.01 [place] [id number] [address] [place] [address] Jan, Depression, major, recurrent , moderate 296.[address] [address] Dec, Depression, major, recurrent , moderate 296.[address] [id number] [place] [id number] Dec, Morbid obesity 278.01 ; Metabolic syndro me 277.7 ; Hyperlipemia 272.4 ; Benign essential hypertension 401.1 ; Dietary counseling V65.3 ; Exercise counseling V65.41 and Inflamed skin tag 701.[address] [address] Dec, Depression, major, recurrent , moderate 296.[address] [address] Dec, [address] [address] Dec, Major depression, recurrent 296.30 ; Anxiety, generalized 300.02 and No condition on [place] II V71.[address] [address] Dec, Depression, major, recurrent , moderate 296.[address] [address] Dec, Major depressive disorder, r ecurrent episode, moderate 296.32 [place] [id number] [address] [place] [address] Dec, Depression, major, recurrent , moderate 296.[address] [address] Dec, Depression, major, recurrent , moderate 296.[address] [address] Dec, Depression, major, recurrent , moderate 296.32 [facility] [address] [place] [id number] [address] [place] [address] Dec, Depression, major, recurrent , moderate 296.32 [facility] [address] [place] [id number] [place] [address] Nov, Depression, major, recurrent , moderate 296.32 [place] [address] [address] Nov, Major depression 296.20 ; So cial phobia 300.23 and No condition on De Ruyter II V71.09 [facility] [address] [place] [id number] [place] [address] Nov, Depression, major, recurrent , moderate 296.32 [place] [address] [address] Nov, Major depressive disorder, r ecurrent episode, moderate 296.32 and Generalized anxiety disorder 300.02 [facility] [address] [address] Nov, Depression, major, recurrent , moderate 296.32 [facility] [address] [address] Nov, Depression, major, recurrent , moderate 296.32 [facility] [address] [address] October, Generalized anxiety disorder 300.02 ; No condition on De Ruyter II V71.09 and Major depressive disorder, recurrent 296.30 [facility] [address] [address] Sep, [place] [address] [address] Sep, [facility] [address] [place] [id number] [address] [place] [address] Aug, [facility] [address] [address] Aug, [facility] [address] [id number] [facility] [place] [address] 23 Aug, 2014 [facility] [address] [id number] [facility] [place] [address] 23 Aug, 2014 [facility] [address] [id number] [address] [place] [address], [place] [address] 20 Aug, 2014 [facility] [address] [id number] [address] [place] [address], [place] [address] 20 Aug, 2014 [facility] [address] [id number] [address] [place] [address], [place] [address] 20 Aug, 2014 [facility] [address] [id number] [address] [place] [address], [place] [address] 20 Aug, 2014 [facility] [address] [id number] [address] [place] [address], [place] [address] 13 Aug, 2014 [facility] [address] [id number] [address] [place] [address], [place] [address] 13 Aug, 2014 [facility] [address] [id number] [address] [place] [address], [place] [address] 13 Aug, 2014 [facility] [address] [id number] [address] [place] [address], [place] [address] 13 Aug, 2014 [facility] [address] [id number] [address] [place] [address], [place] [address] 12 Aug, 2014 [facility] [address] [id number] [address] [place] [address], [place] [address] 12 Aug, 2014 [facility] [address] [id number] [address] [place] [address], [place] [address] 10 Aug, 2014 [facility] [address] [id number] [address] [place] [address], [place] [address] 10 Aug, 2014 [facility] [address] [id number] [address] [place] [address], [place] [address] 09 Aug, 2014 [facility] [address] [id number] [address] [place] [address], [place] [address] Aug, [facility] [address] [id number] [address] [place] [address], [place] [address] Jul, [facility] [address] [id number] [address] [place] [address], [place] [address] Jul, [facility] [address] [id number] [address] [place] [address], [place] [address] Jul, 2014 [facility] [address] [id number] [address] [place] [address], [place] [address] Jul, 2014 [facility] [address] [id number] [address] [place] [address], [place] [address] Jul, [facility] [address] [id number] [address] [place] [address], [place] [address] Jul, [facility] [address] [id number] [address] [place] [address], [place] [address] Jun, [facility] [address] [id number] [address] [place] [address], [place] [address] Jun, [facility] [address] [id number] [address] [place] [address], [place] [address] Jun, [facility] [address] [id number] [address] [place] [address], [place] [address] Jun, [facility] [address] [id number] [address] [place] [address], [place] [address] Jun, [facility] [address] [id number] [address] [place] [address], [place] [address] Jun, [facility] [address] [id number] [address] [place] [address], [place] [address] Jun, [facility] [address] [id number] [address] [place] [address], [place] [address] Jun, [facility] [address] [id number] [address] [place] [address], [place] [address] Jun, [facility] [address] [id number] [address] [place] [address], [place] [address] Jun, [facility] [address] [id number] [address] [place] [address], [place] [address] Jun, [facility] [address] [id number] [address] [place] [address], [place] [address] Jun, [facility] [address] [id number] [place] [id number] Jun, [facility] [address] [id number] [address] [place] [address], [place] [address] Jun, [facility] [address] [id number] [address] [place] [address], [place] [address] Jun, [facility] [address] [id number] [address] [place] [address], [place] [address] Jun, [facility] [address] [id number] [address] [place] [address], [place] [address] May, [facility] [address] [id number] [address] [place] [address], [place] [address] May, [facility] [address] [id number] [address] [place] [address], [place] [address] May, [facility] [address] [id number] [address] [place] [address], [place] [address] May, [facility] [address] [id number] [address] [place] [address], [place] [address] Apr, [facility] [address] [id number] [address] [place] [address], [place] [address] Apr, [facility] [address] [id number] [address] [place] [address], [place] [address] Apr, [facility] [address] [id number] [address] [place] [address], [place] [address] Apr, [facility] [address] [id number] [address] [place] [address], [place] [address] Apr, [facility] [address] [id number] [address] [place] [address], [place] [address] Apr, [facility] [address] [id number] [address] [place] [address], [place] [address] Apr, [facility] [address] [id number] [address] [place] [address], [place] [address] Apr, [facility] [address] [id number] [address] [place] [address], [place] [address] Apr, [facility] [address] [id number] [address] [place] [address], [place] [address] Apr, [facility] [address] [id number] [address] [place] [address], [place] [address] Apr, [facility] [address] [id number] [address] [place] [address], [place] [address] Apr, [facility] [address] [id number] [address] [place] [address], [place] [address] Apr, [facility] [address] [id number] [address] [place] [address], [place] [address] Apr, [facility] [address] [id number] [address] [place] [address], [place] [address] Apr, [facility] [address] [id number] [address] [place] [address], [place] [address] Apr, [facility] [address] [id number] [address] [place] [address], [place] [address] Apr, [facility] [address] [id number] [address] [place] [address], [place] [address] Apr, [facility] [address] [id number] [address] [place] [address], [place] [address] Apr, [facility] [address] [id number] [address] [place] [address], [place] [address] Apr, [facility] [address] [id number] [address] [place] [address], [place] [address] 08 Mar, 2014 [facility] [address] [id number] [address] [place] [address], [place] [address] Mar, [facility] [address] [id number] [address] [place] [address], [place] [address] Mar, [facility] [address] [id number] [address] [place] [address], [place] [address] Mar, [facility] [address] [id number] [address] [place] [address], [place] [address] Mar, [facility] [address] [id number] [address] [place] [address], [place] [address] Mar, [facility] [address] [id number] [address] [place] [address], [place] [address] Mar, [facility] [address] [id number] [address] [place] [address], [place] [address] Mar, [facility] [address] [id number] [address] [place] [address], [place] [address] Mar, [facility] [address] [id number] [address] [place] [address], [place] [address] Mar, [facility] [address] [id number] [address] [place] [address], [place] [address] Feb, [facility] [address] [id number] [address] [place] [address], [place] [address] Feb, [facility] [address] [id number] [address] [place] [address], [place] [address] Feb, [facility] [address] [id number] [address] [place] [address], [place] [address] Feb, [facility] [address] [id number] [address] [place] [address], [place] [address] Jan, [facility] [address] [id number] [address] [place] [address], [place] [address] Jan, [facility] [address] [id number] [facility] [place] [address] Jan, [facility] [address] [id number] [address] [place] [address], [place] [address] Jan, [facility] [address] [id number] [address] [place] [address], [place] [address] Jan, [facility] [address] [id number] [address] [place] [address], [place] [address] Jan, [facility] [address] [id number] [address] [place] [address], [place] [address] Dec, [facility] [address] [id number] [address] [place] [address], [place] [address] Dec, [facility] [address] [id number] [address] [place] [address], [place] [address] Nov, [facility] [address] [id number] [address] [place] [address], [place] [address] Nov, [facility] [address] [id number] [address] [place] [address], [place] [address] Nov, [facility] [address] [id number] [address] [place] [address], [place] [address] Nov, [facility] [address] [id number] [address] [place] [address], [place] [address] Nov, [facility] [address] [id number] [address] [place] [address], [place] [address] Nov, [facility] [address] [id number] [address] [place] [address], [place] [address] Sep, [facility] [address] [id number] [address] [place] [address], [place] [address] Sep, [facility] [address] [id number] [address] [place] [address], [place] [address] Sep, [facility] [address] [id number] [address] [place] [address], [place] [address] Sep, [facility] [place] [address] [id number] [address] [place] [address], [place] [address] Aug, [facility] [address] [id number] [address] [place] [address], [place] [address] Aug, [facility] [address] [id number] [address] [place] [address], [place] [address] Jul, [facility] [address] [id number] [address] [place] [address], [place] [address] Jul, [facility] [address] [id number] [address] [place] [address], [place] [address] Jun, [facility] [address] [id number] [address] [place] [address], [place] [address] Jun, [facility] [place] [address] [id number] [address] [place] [address], [place] [address] Jun, [facility] [place] [address] [id number] [address] [place] [address], [place] [address] Jun, [facility] [place] [address] [id number] [address] [place] [address], [place] [address] May, [facility] [place] [address] [id number] [address] [place] [address], [place] [address] May, [facility] [address] [id number] [address] [place] [address], [place] [address] May, [facility] [address] [id number] [address] [place] [address], [place] [address] May, [facility] [address] [id number] [address] [place] [address], [place] [address] May, [facility] [address] [id number] [address] [place] [address], [place] [address] May, [facility] [address] [id number] [address] [place] [address], [place] [address] Apr, [facility] [address] [id number] [address] [place] [address], [place] [address] Apr, [facility] [address] [id number] [address] [place] [address], [place] [address] Apr, [facility] [address] [id number] [address] [place] [address], [place] [address] Apr, [facility] [address] [id number] [address] [place] [address], [place] [address] Mar, [facility] [address] [id number] [address] [place] [address], [place] [address] Mar, [facility] [address] [id number] [address] [place] [address], [place] [address] Mar, [facility] [address] [id number] [address] [place] [address], [place] [address] Mar, [facility] [address] [id number] [address] [place] [address], [place] [address] Feb, [facility] [address] [id number] [place] [id number] Jan, [facility] [address] [id number] [address] [place] [address], [place] [address] Jan, [facility] [address] [id number] [address] [place] [address], [place] [address] Dec, [facility] [address] [id number] [address] [place] [address], [place] [address] 15 Dec, 2012 [facility] [address] [id number] [address] [place] [address], [place] [address] Dec, [facility] [address] [id number] [place] [id number] Dec, [facility] [address] [id number] [address] [place] [address], [place] [address] Nov, [facility] [address] [id number] [address] [place] [address], [place] [address] Nov, [facility] [address] [id number] [address] [place] [id number] Nov, [facility] [address] [id number] [address] [place] [address] Nov, [facility] [address] [id number] [address] [place] [id number] Nov, [facility] [address] [id number] [address] [place] [address] October, [facility] [address] [id number] [address] [place] [address] October, [facility] [address] [id number] [address] [place] [id number] Aug, [facility] [address] [facility] [id number] [address] [place] [id number] Nov, IMMUNIZATIONS No Known Immunizations SOCIAL HISTORY Never Assessed REASON FOR VISIT Depression/BP/weight managment-Daly [facility] PLAN OF CARE Activity Details Follow Up 4 Weeks Reason:depression f/ u VITAL SIGNS Height 71.5 in 2017-05-22 Weight 367.5 lbs 2017-05-22 Temperature 98.0 degrees Fahrenheit 2017-05-22 Heart Rate 68 bpm 2017-05-22 Respiratory Rate 18 2017-05-22 BMI 50.54 kg/m2 2017-05-22 Blood pressure systolic 132 mmHg 2017-05-22 Blood pressure diastolic 90 mmHg 2017-05-22 MEDICATIONS Medication Instructions Dosage Frequency Start Date End Date Duration S tatus Flovent HFA 110 mcg/actuation inhalation once per day 1-3 Puffs 1 time per day October, 0 Active Montelukast Sodium 10 MG TAKE ONE TABLET BY MOUTH DAILY Active Viibryd 20 mg Orally Once a day x 2 weeks, then 2 tabl ets daily 1 tablet with food May, Active Cetirizine HCl 10 mg Orally Once a day 1 tablet 24h Active Naproxen 500 mg Orally every 12 hrs 1 tablet with food or milk as n eeded 12h May, May, 14 days Active Trazodone HCl 50 mg Orally Once a day- bedtime 1 tablet Nov, Active Trintellix 20 MG Orally Once a day in morning 1 tablet Not-Taking Vitamin D-3 1000 UNIT Orally Once a day 2 capsule 24h Active Lisinopril 40 mg Orally Once a day 1 tablet 24h Active BusPIRone HCl 10 mg Orally 3 times a day 1 tablet 8h Apr, Active Atenolol 100 mg 1 tablet Once a day Orally Active Centrum - Active Omeprazole 40 MG Orally Once a day 1 tablet 24h 0 da ys Active Flonase 50 mcg/act nasally once per day 1 spray (50 mcg) in each nostril by intranasal route 2 times per day Nov, Active Zofran 8 MG Orally Once a day 1 tablet 24h A ctive Patanol 0.1 % Ophthalmic Twice a day 1 drop into affected eye 12h Mar, Active RESULTS No Results PROCEDURES Procedure Date Ordered Result Body Site DEBRIDE NAIL -5 2017-05-22 N/A DEBRIDE NAIL, 1-5 May 22, 2017 INSTRUCTIONS MEDICATIONS ADMINISTERED No Known Medications [...] 03/2016 Hospitalization History gastric sleeve Hospitalization History [facility] Trouble with left shoulder blade 08/2017
--- OUTSIDE RECORDS SUMMARY | 2019-11-29 09:33 | XMS REPORT ---
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 Forging Name Role Phone francofrancoISAACQUINTIN Caceres Unavailable PROBLEMS Type Condition ICD9-CM Code ARN52-WC Code Onset Dates Condition S tatus SNOMED Code Problem Renal insufficiency N28.9 Active 995688172 Problem Callus of foot L84 Active 19917 1005 Problem Edema R60.9 Active 039144852 Problem Vitamin D deficiency E55.9 Active 31591713 Problem Anxiety F41.9 Active 93138070 Problem Acute bacterial conjunctivitis of left eye H10.32 Active 544647614 Problem Recurrent major depressive disorder, in partial remission F33.41 Active 67056256 Problem Severe episode of recurrent major depressive disorder, without psychotic features F33.2 Active 17048238 Problem Metabolic syndrome E88.81 Active 2 53833299 Problem Hyperlipemia E78.5 Active 6210556 4 Problem Type II diabetes mellitus E11.9 Acti ve 72269627 Problem Insomnia G47.00 Active 248172893 Problem Morbid obesity E66.01 Active 31734 6002 Problem Major depression F32.9 Active 370 707300 Problem Benign essential hypertension I10 Active 0054460 ALLERGIES No Information ENCOUNTERS Encounter Location Date Diagnosis [facility] [address] [facility] [id number] [address] [place] [phone] October, [facility] [address] [id number][place] [id number] October, [facility] [address] [id number], [place] [id number] Sep, [facility] [address] [id number], [place] [id number] Sep, [facility] [id number] [place] [id number] Sep, [address] [id number], [place] [id number] Sep, Hospital discharge follow-up Z09 ; Aller gic rhinitis, unspecified seasonality, unspecified trigger J30.9 and Shortness of breath R06.[address] [id number], [place] [id number] Sep, Recurrent major depressive disorder, in partial remission F33.[address] [id number], [place] [id number] Aug, Irritable mood R45.4 [place] [address] [place] [phone] Aug, [address] [id number], [place] [id number] Jul, Benign essential hypertension I10 ; Robert a R60.9 and Impacted cerumen of left ear H61.22 [place] [address] [place] [phone] 14 Jul, 2017 Major depression F32.9 ; Rec urrent major depressive disorder, in partial remission F33.41 and Anxiety F41.9 [place] [address] [address] [place] [id number] [address] [place] [phone] Jun, Major depression F32.9 ; Rec urrent major depressive disorder, in partial remission F33.41 and Anxiety F41.[address] [id number], [place] [id number] Jun, Major depression F32.9 ; Morbid obesity E66.01 ; Irritable mood R45.4 ; Hand weakness R29.898 and Vitamin D deficiency E55.[address] [id number], [place] [id number] Jun, [address] [id number], [place] [id number] May, Major depression F32.9 [place] [address] [place] [id number] [address] [place] [address] May, Major depression F32.9 [facility] [address] [id number], [place] [id number] May, BMI 50.0-59.9, adult Z68.43 ; Major depr ession F32.9 ; Anxiety F41.9 ; Hypertrophic toenail L60.2 and Pain of left great toe M79.675 [facility] [address] [id number], [place] [id number] May, Recurrent major depressive disorder, in partial remission F33.41 [place] [address] [place] [address] Apr, [facility] [id number] [place] [address] [id number] Apr, [place] [address] [place] [phone] Apr, Major depression F32.9 [facility] [id number] [place] [address] [id number] Apr, Severe episode of recurrent major depres sive disorder, without psychotic features F33.2 ; Anxiety F41.9 and Insomnia G47.00 [facility] [address] [id number], [place] [id number] Apr, [place] [address] [place] [id number] [address] [place] [phone] Apr, [facility] [address] [id number], [place] [id number] Apr, [facility] [address] [id number], [place] [id number] Mar, [facility] [address] [id number], [place] [id number] Mar, Allergic conjunctivitis of both eyes H10 .13 [place] [address] [place] [id number] [address] [place] [phone] Mar, Major depression F32.9 [facility] [address] [facility] [id number] [place] [address] [id number] Mar, Metabolic syndrome E88.81 ; History of g astric bypass Z98.890 ; Benign essential hypertension I10 and Allergic conjunctivitis of both eyes H10.13 [place] [address] [facility] [id number] [address] [place] [phone] Mar, Major depression F32.9 [place] [address] [facility] [id number] [place] [address] [id number] Feb, [place] [address] [place] [id number] [address] [place] [address] Feb, Major depression F32.[address] [id number] [place] [address] [id number] Feb, Subacute maxillary sinusitis J01.00 and Bronchitis J40 [place] [address] [place] [phone] 06 Feb, 2017 Major depressive disorder, r ecurrent, moderate F33.1 [facility] [address] [id number], [place] [id number] Jan, [id number] [place] [address] [id number] Jan, Acute non-recurrent maxillary sinusitis J01.00 and Skin tag L91.8 [facility] [address] [id number], [place] [id number] Jan, Cough R05 and Sinus congestion R09.81 [facility] [id number] [place] [address] [id number] Jan, [facility] [address] [id number], [place] [id number] Jan, Benign essential hypertension I10 ; Hist ory of gastric bypass Z98.890 and Nausea and vomiting in adult R11.2 [place] [address] [place] [phone] 04 Jan, 2017 Major depressive disorder, r ecurrent, moderate F33.1 [place] [address] [place] [id number] [address] [place] [address] Dec, Insomnia G47.00 ; Recurrent major depressive disorder, in partial remission F33.41 and Morbid obesity E66.[id number] [place] [address] [id number] Dec, [id number] [place] [address] [id number] Dec, Chronic bacterial conjunctivitis of left eye H10.402 [place] [id number] [place] [address] [id number] Nov, [place] [id number] [place] [address] [id number] Nov, Dental examination Z01.[address] AV[facility] [id number] [place] [address] [id number] Nov, Benign essential hypertension I10 ; Hist ory of gastric bypass Z98.890 and Nausea and vomiting in adult R11.2 [place] [address] [place] [id number] [address] [place] [phone] Nov, Major depressive disorder, r ecurrent, moderate F33.1 ; Generalized anxiety disorder F41.1 and Insomnia due to other mental disorder F51.05 [place] [address] [address] [place] [id number] [address] [place] [phone] Nov, Recurrent major depressive d isorder, in partial remission F33.41 ; Insomnia G47.00 and Morbid obesity E66.01 [facility] [address] [id number] [place], [place] [id number] October, Abscess of left arm L02.414 [place] [address] [address] [place] [id number] [address] [place] [address] October, Morbid obesity E66.01 ; Lida r depression F32.9 and Recurrent major depressive disorder, in partial remission F33.41 [facility] [address] [id number], [place] [id number] Sep, Benign essential hypertension I10 ; Morb id obesity E66.01 ; S/P gastric bypass Z98.84 ; Abscess L02.91 and Chronic bacterial conjunctivitis of left eye H10.402 [facility] [address] [id number], [place] [id number] 17 Sep, 2016 Dental examination Z01.20 [facility] [address] [place] [id number] [address] [place] [phone] Sep, Morbid obesity E66.01 ; Lida r depression F32.9 and Recurrent major depressive disorder, in partial remission F33.41 [place] [address] N [place] [id number] [address] [place] [phone] Jul, [facility] [address] [place] [id number] [address] [place] [phone] Jul, Major depressive disorder, r ecurrent, moderate F33.1 [place] [address] [place] [id number] [address] [place] [phone] Jul, Major depressive disorder, r ecurrent, moderate F33.1 and Generalized anxiety disorder F41.[address] [id number], [place] [id number] Jul, Cough R05 [facility] [address] [place] [id number] [address] [place] [phone] 16 Jul, 2016 Morbid obesity E66.01 ; Lida r depression F32.9 and Recurrent major depressive disorder, in partial remission F33.41 [facility] [address] [id number], [place] [id number] Jul, [facility] [address] [id number], [place] [id number] Jul, [facility] [address] [id number], [place] [id number] Jul, Gastroenteritis K52.9 and Cough R[address] [place] [id number] [place] [address] [id number] Jun, Acute bacterial conjunctivitis of left e ye H10.32 [place] [address] [facility] [id number] [address] [place] [phone] Jun, [place] [address] [facility] [id number] [address] [place] [phone] Jun, Recurrent major depressive d isorder, in partial remission F33.41 [place] [address] [facility] [id number] [address] [place] [phone] May, Major depression F32.9 and M orbid obesity E66.01 [place] [address] [address] [facility] [id number] [address] [place] [phone] May, [id number] [place] [address] [id number] May, Thrush B37.0 [place] [address] [facility] [id number] [address] [place] [phone] Apr, Major depressive disorder, r ecurrent, moderate F33.1 [place] [address] [facility] [id number] [address] [place] [address] Apr, Insomnia G47.00 ; Major depr ession F32.9 and Recurrent major depressive disorder, in partial remission F33.41 [place] [address] [facility] [id number] [address] [place] [phone] Apr, [place] [address] [facility] [id number] [address] [place] [phone] 02 Apr, 2016 Major depression F32.9 and R ecurrent major depressive disorder, in partial remission F33.[address] [place] [address] [id number], [place] [id number] Mar, Benign essential hypertension I10 ; Morb id obesity E66.01 ; Impacted cerumen of both ears H61.23 ; Laceration of finger of right hand, initial encounter S61.219A and Encounter for immunization Z23 [facility] [address] [facility] [id number] [address] [place] [phone] Mar, [facility] [address] [facility] [id number] [address] [place] [phone] Mar, [facility] [address] [facility] [id number] [address] [place] [phone] Mar, [facility] [address] [id number], [place] [id number] Feb, Nausea R11.0 ; Blood in the stool K92.1 and Benign essential hypertension I10 [facility] [address] [facility] [id number] [address] [place] [phone] Feb, Major depression F32.9 and R ecurrent major depressive disorder, in partial remission F33.41 [facility] [address] [id number], [place] [id number] Feb, [facility] [address] [id number], [place] [id number] Feb, Recurrent major depressive disorder, in partial remission F33.41 [facility] [address] [id number], [place] [id number] Jan, [facility] [address] [id number], [place] [id number] Jan, Benign essential hypertension I10 ; Robert a R60.9 and Hyperlipidemia, unspecified hyperlipidemia type E78.5 [facility] [address] [id number], [place] [id number] Jan, Recurrent major depressive disorder, in partial remission F33.41 [facility] [address] [id number] [place] [id number] Jan, [facility] [address] [id number], [place] [id number] Jan, [facility] [address] [id number], [place] [id number] Jan, [facility] [address] [facility] [id number] [address] [place] [phone] Jan, [facility] [address] [facility] [id number] [address] [place] [phone] Dec, [facility] [address] [facility] [id number] [address] [place] [phone] Nov, [facility] [address] [facility] [id number] [address] [place] [phone] Nov, Major depression F32.9 [facility] [address] [facility] [id number] [address] [place] [phone] Nov, [facility] [address] [place] [id number] [address] [place] [phone] Nov, [facility] [address] [place] [id number] [address] [place] [phone] Nov, Major depressive disorder, r ecurrent episode, mild F33.0 and Anxiety F41.[address] [id number], [place] [id number] Nov, [id number] [place] [address] [id number] October, Left elbow pain M25.522 and Other season al allergic rhinitis J30.[id number] [place] [address] [id number] October, [facility] [address] [facility] [id number] [address] [place] [phone] October, Major depressive disorder, r ecurrent, moderate F33.1 [facility] [address] [facility] [id number] [address] [place] [phone] October, Major depression F32.9 [facility] [address] [facility] [id number] [address] [place] [phone] Sep, [place] or callus L84 and Onych omycosis B35.1 [facility] [address] [facility] [id number] [address] [place] [phone] Sep, Major depressive disorder, r ecurrent, moderate F33.1 [facility] [address] [facility] [id number] [address] [place] [phone] Sep, Major depression F32.9 [facility] [address] [facility] [id number] [address] [place] [phone] Sep, Moderate episode of recurren t major depressive disorder F33.1 [facility] [id number] [place] [address] [id number] Sep, Muscle strain T14.8 [facility] [address] [facility] [id number] [address] [place] [phone] Aug, Major depression F32.9 [place] [address] [facility] [id number] [address] [place] [address] Aug, Major depression F32.9 [place] [address] [facility] [id number] [address] [place] [phone] Jul, Morbid obesity E66.01 and Ma cora depression F32.9 [facility] [address] [facility] [id number] [address] [place] [phone] Jul, Depression, major, recurrent , moderate F33.1 [facility] [address] [id number], [place] [id number] Jul, [facility] [address] [facility] [id number] [address] [place] [address] Jul, [facility] [address] [facility] [id number] [address] [place] [phone] Jul, Major depression F32.9 and M orbid obesity E66.01 [facility] [address] [id number], [place] [id number] Jul, Type II diabetes mellitus E11.9 ; Callus of foot L84 ; Benign essential hypertension I10 and Renal insufficiency N28.9 [place] [address] [facility] [id number] [address] [place] [phone] 09 Jul, 2015 Depression, major, recurrent , moderate F33.1 [place] [address] [facility] [id number] [address] [place] [phone] Jul, Major depression F32.9 [place] [address] [place] [id number] [address] [place] [phone] Jul, [place] [address] [place] [id number] [address] [place] [phone] Jun, Major depression F32.9 [place] [address] [place] [id number] [address] [place] [phone] Jun, Major depressive disorder, r ecurrent, moderate F33.1 [place] [address] [phone] Jun, [place] [address] [place] [id number] [address] [place] [phone] Jun, Major depressive disorder, r ecurrent, moderate F33.1 and Major depression F32.[address] [place] [address] [id number], [place] [id number] Jun, Type II diabetes mellitus E11.9 [place] [address] [facility] [id number] [address] [place] [phone] Jun, Depression, major, recurrent , moderate F33.1 [place] [address] [facility] [id number] [address] [place] [phone] May, Major depressive disorder, r ecurrent, moderate F33.1 [place] [address] [facility] [id number] [address] [place] [address] May, [facility] [address] [id number], [place] [id number] May, Edema R60.9 [place] [address] [facility] [id number] [address] [place] [address] 17 May, 2015 Insomnia G47.00 and Major de pression F32.9 [facility] [address] [id number], [place] [id number] 15 May, 2015 Morbid obesity E66.01 ; Edema R60.9 ; Sh ortness of breath R06.02 ; Benign essential hypertension I10 and Renal insufficiency N28.9 [facility] [address] [id number], [place] [id number] May, Hyperlipemia 272.4 and Renal insufficien cy N28.9 [place] [address] [facility] [id number] [address] [place] [address] Apr, Major depression F32.9 [place] [address] [facility] [id number] [address] [place] [phone] Apr, [place] [address] [facility] [id number] [address] [place] [address] Apr, Major depressive disorder, r ecurrent, moderate F33.[address] [id number] [place] [address] [id number] Apr, Type II diabetes mellitus E11.9 ; Benign essential hypertension I10 ; Edema R60.9 and Renal insufficiency N28.9 [place] [address] [facility] [id number] [address] [place] [phone] Mar, Major depressive disorder, r ecurrent, moderate F33.1 [place] [address] [facility] [id number] [address] [place] [phone] Mar, [place] [address] [facility] [id number] [address] [place] [phone] Mar, Major depression F32.9 [facility] [address] [id number], [place] [id number] Mar, Morbid obesity E66.01 ; Benign essential hypertension I10 and Type II diabetes mellitus E11.9 [place] [address] [place] [id number] [address] [place] [phone] Feb, Major depressive disorder, r ecurrent, moderate F33.1 [facility] [address] [facility] [id number] [address] [place] [phone] Feb, Major depressive disorder, r ecurrent episode, in partial or unspecified remission 296.35 ; Anxiety state, unspecified 300.00 and Morbid obesity 278.01 [place] [address] [place] [id number] [address] [place] [phone] Feb, [place] [id number] [place] [address] [id number] 16 Feb, 2015 Vomiting 787.03 and Viral syndrome 079.9 9 [place] [address] [place] [id number] [address] [place] [address] 15 Feb, 2015 Major depression, recurrent 296.30 ; Generalized anxiety disorder 300.02 and No condition on [place] II V71.09 [facility] [address] [facility] [id number] [place] [address] [id number] Feb, Skin tag 701.9 [place] [address] [place] [id number] [address] [place] [address] Feb, [place] [address] [place] [id number] [address] [place] [address] Jan, Depression, major, recurrent , moderate 296.32 [facility] [id number] [place] [address] [id number] Jan, Nausea and vomiting 787.01 ; Rib pain on right side 786.50 and Fall on or from sidewalk curb E880.1 [place] [address] [facility] [id number] [address] [place] [id number] Jan, [place] [address] [address] [facility] [id number] [address] [place] [phone] Jan, Major depressive disorder, r ecurrent episode, in partial or unspecified remission 296.35 and Anxiety state, unspecified 300.00 [facility] [address] [id number] [id number] Jan, [facility] [address] [place] [id number] [place] [phone] Jan, Depression, major, recurrent , moderate 296.32 [facility] [address] [place] [id number] [place] [phone] Jan, Major depression, recurrent 296.30 ; No condition on [place] II V71.09 and No condition on axis III V71.09 [facility] [address] [place] [address] AVE [id number] [id number] Jan, Drug-induced nausea and vomiting 787.01 [place] [id number] [address] [place] [phone] Jan, Depression, major, recurrent , moderate 296.32 [place] [id number] [address] [place] [phone] Dec, Depression, major, recurrent , moderate 296.32 [facility] [address] [place] [address] AVE [id number] [id number] Dec, Morbid obesity 278.01 ; Metabolic syndro me 277.7 ; Hyperlipemia 272.4 ; Benign essential hypertension 401.1 ; Dietary counseling V65.3 ; Exercise counseling V65.41 and Inflamed skin tag 701.[address] [id number] [address] [place] [id number] Dec, Depression, major, recurrent , moderate 296.[address] [id number] [address] [place] [phone] Dec, [place] [id number] [address] [place] [phone] Dec, Major depression, recurrent 296.30 ; Anxiety, generalized 300.02 and No condition on [place] II V71.09 [facility] [address] [place] [id number] [place] [phone] Dec, Depression, major, recurrent , moderate 296.32 [place] [place] [address] [address] [place] [id number] [address] [place] [address] Dec, Major depressive disorder, r ecurrent episode, moderate 296.32 [place] [address] [place] 536822[address] Dec, Depression, major, recurrent , moderate 296.32 [place] [id number] Dec, Depression, major, recurrent , moderate 296.32 [place] [id number] Dec, Depression, major, recurrent , moderate 296.32 [place] [id number] Dec, Depression, major, recurrent , moderate 296.[address] [address] Nov, Depression, major, recurrent , moderate 296.[address] [address] Nov, Major depression 296.20 ; So cial phobia 300.23 and No condition on [place] II V71.[address] [address] Nov, Depression, major, recurrent , moderate 296.32 [place] [id number] Nov, Major depressive disorder, r ecurrent episode, moderate 296.32 and Generalized anxiety disorder 300.02 [place] [id number] Nov, Depression, major, recurrent , moderate 296.32 [place] [id number] Nov, Depression, major, recurrent , moderate 296.32 [place] [address] [id number] [address] [place] [address] 07 Oct, 2014 Generalized anxiety disorder 300.02 ; No condition on [place] II V71.09 and Major depressive disorder, recurrent 296.30 [facility] [address] [id number] [address] [place] [address], [place] [address] 14 Sep, 2014 [facility] [address] [id number] [address] [place] [address] Sep, [facility] [address] [id number] [address] [place] [address], [place] [address] 24 Aug, 2014 [facility] [address] [id number] [address] [place] [address] 24 Aug, 2014 [facility] [address] [id number] [address] [place] [phone] 23 Aug, 2014 [facility] [address] [id number] [address] [place] [address] 23 Aug, 2014 [facility] [address] [id number] [address] [place] [address] 20 Aug, 2014 [facility] [address] [id number] [address] [place] [address], [place] [address] 20 Aug, 2014 [facility] [address] [id number] [address] [place] [address] 20 Aug, 2014 [facility] [address] [id number] [address] [place] [address] 20 Aug, 2014 [facility] [address] [id number] [address] [place] [phone] 13 Aug, 2014 [facility] [address] [id number] [address] [place] [address] 13 Aug, 2014 [facility] [address] [id number] [address] [place] [address] 13 Aug, 2014 [facility] [address] [id number] [address] [place] [phone] Aug, [facility] [address] [id number] [address] [place] [address], [place] [address] Aug, [facility] [address] [id number] [address] [place] [address], [place] [address] Aug, [facility] [address] [id number] [address] [place] [address], [place] [address] Aug, [facility] [address] [id number] [address] [place] [address], [place] [address] Aug, [facility] [address] [id number] [address] [place] [address], [place] [address] Aug, [facility] [address] [id number] [address] [place] [address], [place] [address] Aug, [facility] [address] [id number] [address] [place] [address], [place] [address] Jul, [facility] [address] [id number] [address] [place] [address], [place] [address] Jul, [facility] [address] [id number] [address] [place] [address], [place] [address] Jul, [facility] [address] [id number] [address] [place] [address], [place] [address] Jul, [facility] [address] [id number] [address] [place] [address], [place] [address] Jul, [facility] [address] [id number] [address] [place] [address], [place] [address] Jul, [facility] [address] [id number] [address] [place] [address], [place] [address] Jun, [facility] [address] [id number] [address] [place] [address], [place] [address] Jun, [facility] [address] [id number] [address] [place] [address], [place] [address] Jun, [facility] [address] [id number] [address] [place] [address], [place] [address] Jun, [facility] [address] [id number] [address] [place] [address], [place] [address] Jun, [facility] [address] [id number] [address] [place] [address], [place] [address] Jun, [facility] [address] [id number] [address] [place] [address], [place] [address] Jun, [facility] [address] [id number] [address] [place] [address], [place] [address] Jun, [facility] [address] [id number] [address] [place] [address], [place] [address] Jun, [facility] [address] [id number] [address] [place] [address], [place] [address] Jun, [facility] [address] [id number] [address] [place] [address], [place] [address] Jun, [facility] [address] [id number] [address] [place] [address], [place] [address] Jun, [facility] [place] [address] [id number] [place] [id number] Jun, [facility] [address] [id number] [address] [place] [address], [place] [address] Jun, [facility] [address] [id number] [address] [place] [address], [place] [address] Jun, [facility] [address] [id number] [address] [place] [address], [place] [address] Jun, [facility] [address] [id number] [address] [place] [address], [place] [address] May, [facility] [address] [id number] [address] [place] [address], [place] [address] May, [facility] [address] [id number] [address] [place] [address], [place] [address] May, [facility] [address] [id number] [address] [place] [address], [place] [address] May, [facility] [address] [id number] [address] [place] [address], [place] [address] Apr, [facility] [address] [id number] [address] [place] [address], [place] [address] Apr, [facility] [address] [id number] [address] [place] [address], [place] [address] Apr, [facility] [address] [id number] [address] [place] [address], [place] [address] Apr, [facility] [address] [id number] [address] [place] [address], [place] [address] Apr, [facility] [address] [id number] [address] [place] [address], [place] [address] Apr, [facility] [address] [id number] [address] [place] [address], [place] [address] Apr, [facility] [address] [id number] [address] [place] [address], [place] [address] Apr, [facility] [address] [id number] [address] [place] [address], [place] [address] Apr, [facility] [address] [id number] [address] [place] [address], [place] [address] Apr, [facility] [address] [id number] [address] [place] [address], [place] [address] Apr, [facility] [address] [id number] [address] [place] [address], [place] [address] Apr, [facility] [address] [id number] [address] [place] [address], [place] [address] Apr, [facility] [address] [id number] [address] [place] [address], [place] [address] Apr, [facility] [address] [id number] [address] [place] [address] [address] Apr, [facility] [address] [id number] [address] [place] [address], [place] [address] Apr, [facility] [address] [id number] [address] [place] [address], [place] [address] Apr, [facility] [address] [id number] [address] [place] [address], [place] [address] Apr, [facility] [address] [id number] [address] [place] [address], [place] [address] Apr, [facility] [address] [id number] [address] [place] [address], [place] [address] Apr, [facility] [address] [id number] [address] [place] [address], [place] [address] Mar, [facility] [address] [id number] [address] [place] [address], [place] [address] Mar, [facility] [address] [id number] [address] [place] [address], [place] [address] Mar, [facility] [address] [id number] [address] [place] [address], [place] [address] Mar, [facility] [address] [id number] [address] [place] [address], [place] [address] Mar, [facility] [address] [id number] [address] [place] [address] Mar, [facility] [address] [id number] [address] [place] [address] Mar, [facility] [address] [id number] [address] [place] [address], [place] [address] Mar, [facility] [address] [id number] [address] [place] [address], [place] [address] Mar, [facility] [address] [id number] [address] [place] [address], [place] [address] Mar, [facility] [address] [id number] [facility] [place] [address] Feb, [facility] [address] [id number] [address] [place] [address], [place] [address] Feb, [facility] [address] [id number] [address] [place] [address], [place] [address] Feb, [facility] [address] [id number] [address] [place] [address], [place] [address] Feb, [facility] [address] [id number] [address] [place] [address], [place] [address] Jan, [facility] [address] [id number] [address] [place] [address], [place] [address] Jan, [facility] [address] [id number] [address] [place] [address], [place] [address] Jan, [facility] [address] [id number] [address] [place] [address], [place] [address] Jan, [facility] [address] [id number] [address] [place] [address], [place] [address] Jan, [facility] [address] [id number] [address] [place] [address], [place] [address] Jan, [facility] [address] [id number] [address] [place] [address], [place] [address] Dec, [facility] [address] [id number] [address] [place] [address], [place] [address] Dec, [facility] [address] [id number] [address] [place] [address], [place] [address] Nov, [facility] [address] [id number] [address] [place] [address], [place] [address] Nov, [facility] [address] [id number] [address] [place] [address], [place] [address] Nov, [facility] [address] [id number] [address] [place] [address], [place] [address] Nov, [facility] [address] [id number] [address] [place] [address], [place] [address] Nov, [facility] [address] [id number] [address] [place] [address], [place] [address] Nov, [facility] [address] [id number] [address] [place] [address], [place] [address] Sep, [facility] [address] [id number] [address] [place] [address], [place] [address] Sep, [facility] [address] [id number] [address] [place] [address], [place] [address] Sep, [facility] [address] [id number] [address] [place] [address], [place] [address] Sep, [facility] [address] [id number] [address] [place] [address], [place] [address] Aug, [facility] [address] [id number] [address] [place] [address], [place] [address] Aug, [facility] [address] [id number] [address] [place] [address], [place] [address] Jul, [facility] [address] [id number] [address] [place] [address], [place] [address] Jul, [facility] [address] [id number] [address] [place] [address], [place] [address] Jun, [facility] [address] [id number] [address] [place] [address], [place] [address] Jun, [facility] [address] [id number] [address] [place] [address], [place] [address] Jun, [facility] [address] [id number] [address] [place] [address], [place] [address] Jun, [facility] [address] [id number] [address] [place] [address], [place] [address] May, [facility] [address] [id number] [address] [place] [address] May, [facility] [address] [id number] [address] [place] [address], [place] [address] May, [facility] [address] [id number] [address] [place] [address] May, [facility] [address] [id number] [address] [place] [address], [place] [address] May, [facility] [address] [id number] [address] [place] [address] May, [facility] [address] [id number] [address] [place] [address], [place] [address] Apr, [facility] [address] [id number] [address] [place] [address] Apr, [facility] [address] [id number] [address] [place] [address] Apr, [facility] [address] [id number] [address] [place] [address] Apr, [facility] [address] [id number] [address] [place] [address] Mar, [facility] [address] [id number] [address] [place] [address] Mar, [facility] [address] [id number] [address] [place] [address] Mar, [facility] [address] [id number] [address] [place] [address] Mar, [facility] [address] [id number] [address] [place] [address] Feb, [facility] [address] [id number] [place] [id number] Jan, [facility] [address] [id number] [address] [place] [address] Jan, [facility] [address] [id number] [address] [place] [address] Dec, [facility] [address] [id number] [address] [place] [address] Dec, [facility] [address] [facility] [id number] [address] [place] [address] Dec, [facility] [address] [id number] [place] [id number] Dec, [facility] [address] [facility] [id number] [address] [place] [address] Nov, [facility] [address] [id number] [address] [place] [address] Nov, [facility] [address] [facility] [id number] [address] [place] [address] Nov, [facility] [address] [facility] [id number] [address] [place] [address] Nov, [facility] [address] [facility] [id number] [address] [place] [address] Nov, [facility] [address] [facility] [id number] [address] [place] [address] October, [facility] [address] [facility] [id number] [address] [place] [address] October, [facility] [address] [facility] [id number] [address] [place] [address] Aug, [facility] [address] [facility] [id number] [address] [place] [address] Nov, IMMUNIZATIONS No Known Immunizations SOCIAL HISTORY Never Assessed REASON FOR VISIT f/u PLAN OF CARE Activity Details Follow Up 4 Weeks Reason:Depression, w eight loss VITAL SIGNS MEDICATIONS Unknown Medications RESULTS No Results PROCEDURES Procedure Date Ordered Result Body Site Psychotherapy, patient &/family, 30 minutes, established patient Mar 28, 2017 INSTRUCTIONS MEDICATIONS ADMINISTERED No Known Medications [...]
--- OUTSIDE RECORDS SUMMARY | 2019-11-29 09:33 | XMS REPORT ---
Author Curt Hess [facility] eClinicalWorks Address Unknown Phone Unavailable Care Team Providers Care Oracle Specialist Name Role Phone CHRIS DIAZ CP Unavailable Allergies No Known Allergies Problems Problem Type Condition Code Onset Dates Condition Statu s Problem Hyperlipemia E78.5 Active Problem Insomnia G47.00 Active Problem Major depression F32.9 Active Problem Callus of foot L84 Active Problem Edema R60.9 Active Problem Recurrent major depressive disorder, in partial remiss ion F33.41 Active Problem Morbid obesity E66.01 Active Problem Benign essential hypertension I10 Active Problem Renal insufficiency N28.9 Active Problem Type II diabetes mellitus E11.9 Ac tive Medications No Known Medications Results No Known Results Summary Purpose eClinicalWorks Submission
--- OUTSIDE RECORDS SUMMARY | 2019-11-29 09:34 | XMS REPORT ---
Author Author Curt DIAZ [facility] Address [address] [place] [address] Care Team Providers Care Oracle Database Architect Name Role Phone JOE CHRIS Unavailable PROBLEMS Type Condition ICD9-CM Code [id number] Code Onset Dates Condition S tatus SNOMED Code Problem Callus of foot L84 Active 02050 1005 Problem Acute bacterial conjunctivitis of left eye H10.32 Active 499698144 Problem Recurrent major depressive disorder, in partial remission F33.41 Active 27628697 Problem BMI 45.0-49.9, adult Z68.42 Active 622338329 Problem Mixed obsessional thoughts and acts F42.2 Active 54912577 Problem Severe episode of recurrent major depressive disorder, without psychotic features F33.2 Active 19127976 Problem Metabolic syndrome E88.81 Active 2 85370178 Problem Vitamin D deficiency E55.9 Active 88761716 Problem Anxiety F41.9 Active 59313498 Problem Insomnia G47.00 Active 427153768 Problem Major depression F32.9 Active 370 895005 Problem Morbid obesity E66.01 Active 15460 6002 Problem Benign essential hypertension I10 Active 8144501 Problem Hyperlipemia E78.5 Active 8258173 4 Problem Renal insufficiency N28.9 Active 942372019 Problem Type II diabetes mellitus E11.9 Acti ve 53882360 Problem Edema R60.9 Active 172064945 ALLERGIES No Information ENCOUNTERS Encounter Location Date Diagnosis [facility] [address] [facility] [id number] [address] [place] [phone] Nov, [facility] [address] [facility] [id number] [address] [place] [phone] October, BMI 45.0-49.9, adult Z68.42 ; Mixed obsessional thoughts and acts F42.2 ; Recurrent major depressive disorder, in partial remission F33.41 ; Major depression F32.9 ; Anxiety F41.9 ; Insomnia G47.00 and Irritable mood R45.4 [facility] [address] [id number], [place] [id number] October, Benign essential hypertension I10 ; Morb id obesity E66.01 and BMI 45.0-49.9, adult Z68.42 [facility] [address] [id number], [place] [id number] Sep, [facility] [address] [id number][place] [id number] Sep, [facility] [address] [id number], [place] [id number] Sep, [facility] [address] [id number][place] [id number] Sep, Hospital discharge follow-up Z09 ; Aller gic rhinitis, unspecified seasonality, unspecified trigger J30.9 and Shortness of breath R06.02 [facility] [address] [id number], [place] [id number] Sep, Recurrent major depressive disorder, in partial remission F33.[address] [id number] [place] [address] [id number] Aug, Irritable mood R45.4 [place] [address] [place] [id number] [address] [place] [phone] Aug, [facility] [id number] [place] [address] [phone] Jul, Benign essential hypertension I10 ; Robert a R60.9 and Impacted cerumen of left ear H61.22 [place] [address] [place] [id number] [address] [place] [phone] Jul, Major depression F32.9 ; Rec urrent major depressive disorder, in partial remission F33.41 and Anxiety F41.9 [place] [address] [place] [id number] [address] [place] [phone] Jun, Major depression F32.9 ; Rec urrent major depressive disorder, in partial remission F33.41 and Anxiety F41.9 [facility] [address] [id number], [place] [id number] Jun, Major depression F32.9 ; Morbid obesity E66.01 ; Irritable mood R45.4 ; Hand weakness R29.898 and Vitamin D deficiency E55.9 [facility] [address] [id number], [place] [id number] Jun, [facility] [address] [id number], [place] [id number] May, Major depression F32.9 [place] [address] [facility] [id number] [address] [place] [address] May, Major depression F32.[address] [place] [address] [id number][place] [id number] May, BMI 50.0-59.9, adult Z68.43 ; Major depr ession F32.9 ; Anxiety F41.9 ; Hypertrophic toenail L60.2 and Pain of left great toe M79.[address] [id number] [place] [address] [id number] May, Recurrent major depressive disorder, in partial remission F33.41 [place] [address] [place] [phone] Apr, [facility] [address] [id number], [place] [id number] Apr, [place] [address] [facility] [id number] [address] [place] [phone] Apr, Major depression F32.9 [facility] [id number] [place] [address] [id number] 13 Apr, 2017 Severe episode of recurrent major depres sive disorder, without psychotic features F33.2 ; Anxiety F41.9 and Insomnia G47.00 [facility] [address] [id number], [place] [id number] Apr, [facility] [address] [facility] [id number] [address] [place] [phone] Apr, [facility] [address] [id number], [place] [id number] Apr, [facility] [address] [id number], [place] [id number] Mar, [facility] [address] [id number], [place] [id number] Mar, Allergic conjunctivitis of both eyes H10 .13 [facility] [address] [facility] [id number] [address] [place] [phone] Mar, Major depression F32.9 [facility] [address] [id number], [place] [id number] Mar, Metabolic syndrome E88.81 ; History of g astric bypass Z98.890 ; Benign essential hypertension I10 and Allergic conjunctivitis of both eyes H10.13 [facility] [address] [facility] [id number] [address] [place] [address] Mar, Major depression F32.9 [facility] [address] [id number], [place] [id number] Feb, [facility] [address] [facility] [id number] [address] [place] [phone] Feb, Major depression F32.9 [facility] [address] [id number], [place] [id number] Feb, Subacute maxillary sinusitis J01.00 and Bronchitis J40 [facility] [address] [facility] [id number] [address] [place] [phone] 06 Feb, 2017 Major depressive disorder, r ecurrent, moderate F33.1 [facility] [address] [id number], [place] [id number] Jan, [facility] [id number] [place] [address] [phone] Jan, Acute non-recurrent maxillary sinusitis J01.00 and Skin tag L91.8 [facility] [address] [place] [address] AVE [id number], [place] [id number] Jan, Cough R05 and Sinus congestion R09.81 [facility] [address] [place] [address] AVE [id number], [place] [id number] Jan, [facility] [address] [id number], [place] [id number] Jan, Benign essential hypertension I10 ; Hist ory of gastric bypass Z98.890 and Nausea and vomiting in adult R11.2 [place] [address] [phone] 04 Jan, 2017 Major depressive disorder, r ecurrent, moderate F33.1 [place] [id number] [place] [phone] Dec, Insomnia G47.00 ; Recurrent major depressive disorder, in partial remission F33.41 and Morbid obesity E66.01 [facility] [address] [id number], [place] [id number] Dec, [facility] [address] [id number], [place] [id number] Dec, Chronic bacterial conjunctivitis of left eye H10.402 [facility] [address] [id number], [place] [id number] Nov, [facility] [address] [id number], [place] [id number] Nov, Dental examination Z01.20 [facility] [address] [id number], [place] [id number] Nov, Benign essential hypertension I10 ; Hist ory of gastric bypass Z98.890 and Nausea and vomiting in adult R11.2 [place] [address] [place] [id number] [address] [place] [phone] 13 Nov, 2016 Major depressive disorder, r ecurrent, moderate F33.1 ; Generalized anxiety disorder F41.1 and Insomnia due to other mental disorder F51.05 [place] [address] [facility] [id number] [address] [place] [phone] Nov, Recurrent major depressive d isorder, in partial remission F33.41 ; Insomnia G47.00 and Morbid obesity E66.01 [facility] [address] [id number] [place] [facility] [id number] October, Abscess of left arm L02.414 [place] [address] [facility] [id number] [address] [place] [address] October, Morbid obesity E66.01 ; Lida r depression F32.9 and Recurrent major depressive disorder, in partial remission F33.[address] [address] [id number], [place] [id number] Sep, Benign essential hypertension I10 ; Morb id obesity E66.01 ; S/P gastric bypass Z98.84 ; Abscess L02.91 and Chronic bacterial conjunctivitis of left eye H10.[address] [place] [id number] [place] [address] [id number] Sep, Dental examination Z01.20 [place] [address] [place] [id number] [address] [place] [address] Sep, Morbid obesity E66.01 ; Lida r depression F32.9 and Recurrent major depressive disorder, in partial remission F33.41 [place] [address] [place] [id number] [address] [place] [phone] Jul, [place] [address] [facility] [id number] [address] [place] [phone] Jul, Major depressive disorder, r ecurrent, moderate F33.1 [place] [address] [facility] [id number] [address] [place] [phone] Jul, Major depressive disorder, r ecurrent, moderate F33.1 and Generalized anxiety disorder F41.[address] [place] [id number] [place] [address] [id number] Jul, Cough R05 [facility] [address] [facility] [id number] [address] [place] [phone] Jul, Morbid obesity E66.01 ; Lida r depression F32.9 and Recurrent major depressive disorder, in partial remission F33.41 [facility] [address] [id number], [place] [id number] Jul, [facility] [address] [id number], [place] [id number] Jul, [facility] [id number] [place] [address] [id number] Jul, Gastroenteritis K52.9 and Cough R05 [facility] [address] [facility] [address] [id number], [place] [id number] Jun, Acute bacterial conjunctivitis of left e ye H10.32 [facility] [address] [facility] [id number] [address] [place] [phone] Jun, [facility] [address] [facility] [id number] [address] [place] [phone] Jun, Recurrent major depressive d isorder, in partial remission F33.41 [facility] [address] [place] [id number] [address] [place] [phone] May, Major depression F32.9 and M orbid obesity E66.01 [facility] [address] [facility] [id number] [address] [place] [phone] May, [facility] [address] [facility] [address] [id number], [place] [id number] May, Thrush B37.0 [facility] [address] [place] [id number] [address] [place] [address] Apr, Major depressive disorder, r ecurrent, moderate F33.1 [facility] [address] [place] [id number] [address] [place] [phone] Apr, Insomnia G47.00 ; Major depr ession F32.9 and Recurrent major depressive disorder, in partial remission F33.41 [facility] [address] [facility] [id number] [address] [place] [phone] Apr, [facility] [address] [facility] [id number] [address] [place] [phone] Apr, Major depression F32.9 and R ecurrent major depressive disorder, in partial remission F33.41 [facility] [address] [id number], [place] [id number] Mar, Benign essential hypertension I10 ; Morb id obesity E66.01 ; Impacted cerumen of both ears H61.23 ; Laceration of finger of right hand, initial encounter S61.219A and Encounter for immunization Z23 [facility] [address] [facility] [id number] [address] [place] [phone] 17 Mar, 2016 [facility] [address] [facility] [id number] [address] [place] [phone] Mar, [facility] [address] [facility] [id number] [address] [place] [phone] Mar, [place] [address] [id number], [place] [id number] Feb, Nausea R11.0 ; Blood in the stool K92.1 and Benign essential hypertension I10 [facility] [address] [facility] [id number] [address] [place] [phone] Feb, Major depression F32.9 and R ecurrent major depressive disorder, in partial remission F33.41 [facility] [address] [id number], [place] [id number] Feb, Recurrent major depressive disorder, in partial remission F33.41 [facility] [address] [id number], [place] [id number] Feb, [facility] [address] [id number], [place] [id number] Jan, [facility] [address] [id number], [place] [id number] Jan, Benign essential hypertension I10 ; Robert a R60.9 and Hyperlipidemia, unspecified hyperlipidemia type E78.5 [facility] [address] [id number], [place] [id number] Jan, Recurrent major depressive disorder, in partial remission F33.41 [facility] [address] [id number] [place] [id number] Jan, [facility] [address] [id number], [place] [id number] Jan, [facility] [address] [id number], [place] [id number] Jan, [facility] [address] [facility] [id number] [address] [place] [phone] Jan, [facility] [address] [facility] [id number] [address] [place] [phone] Dec, [facility] [address] [facility] [id number] [address] [place] [phone] Nov, [facility] [address] [facility] [id number] [address] [place] [phone] Nov, Major depression F32.9 [facility] [address] [facility] [id number] [address] [place] [phone] Nov, [facility] [address] [facility] [id number] [address] [place] [phone] Nov, [facility] [address] [facility] [id number] [address] [place] [address] Nov, Major depressive disorder, r ecurrent episode, mild F33.0 and Anxiety F41.9 [facility] [address] [id number], [place] [id number] Nov, [facility] [address] [id number], [place] [id number] October, Left elbow pain M25.522 and Other season al allergic rhinitis J30.2 [facility] [address] [facility] [address] [id number], [place] [id number] October, [facility] [address] [facility] [id number] [address] [place] [phone] October, Major depressive disorder, r ecurrent, moderate F33.1 [facility] [address] [facility] [id number] [address] [place] [address] October, Major depression F32.9 [place] [address] [facility] [id number] [address] [place] [phone] Sep, [place] or callus L84 and Onych omycosis B35.1 [place] [address] [facility] [id number] [address] [place] [phone] Sep, Major depressive disorder, r ecurrent, moderate F33.1 [place] [address] [facility] [id number] [address] [place] [phone] Sep, Major depression F32.9 [place] [address] [facility] [id number] [address] [place] [phone] Sep, Moderate episode of recurren t major depressive disorder F33.[address] [id number], [place] [id number] Sep, Muscle strain T14.8 [facility] [address] [facility] [id number] [address] [place] [address] Aug, Major depression F32.9 [place] [address] [facility] [id number] [address] [place] [phone] Aug, Major depression F32.9 [place] [address] [facility] [id number] [address] [place] [address] Jul, Morbid obesity E66.01 and Ma cora depression F32.9 [facility] [address] [facility] [id number] [address] [place] [phone] Jul, Depression, major, recurrent , moderate F33.[address] [id number], [place] [id number] Jul, [facility] [address] [facility] [id number] [address] [place] [phone] Jul, [facility] [address] [facility] [id number] [address] [place] [phone] Jul, Major depression F32.9 and M orbid obesity E66.[address] [id number], [place] [id number] Jul, Type II diabetes mellitus E11.9 ; Callus of foot L84 ; Benign essential hypertension I10 and Renal insufficiency N28.9 [facility] [address] [facility] [id number] [address] [place] [phone] 09 Jul, 2015 Depression, major, recurrent , moderate F33.1 [place] [address] [facility] [id number] [address] [place] [phone] Jul, Major depression F32.9 [facility] [address] [facility] [id number] [address] [place] [phone] Jul, [facility] [address] [facility] [id number] [address] [place] [phone] Jun, Major depression F32.9 [facility] [address] [facility] [id number] [address] [place] [phone] Jun, Major depressive disorder, r ecurrent, moderate F33.1 [facility] [address] [facility] [id number] [address] [place] [phone] Jun, [facility] [address] [facility] [id number] [address] [place] [address] Jun, Major depressive disorder, r ecurrent, moderate F33.1 and Major depression F32.[address] [id number], [place] [id number] Jun, Type II diabetes mellitus E11.9 [place] [address] [facility] [id number] [address] [place] [phone] Jun, Depression, major, recurrent , moderate F33.1 [place] [address] [facility] [id number] [address] [place] [phone] May, Major depressive disorder, r ecurrent, moderate F33.1 [place] [address] [facility] [id number] [address] [place] [phone] May, [id number] [place] [address] [id number] May, Edema R60.9 [place] [address] [place] [id number] [address] [place] [address] May, Insomnia G47.00 and Major de pression F32.[address] [id number] [place] [address] [id number] May, Morbid obesity E66.01 ; Edema R60.9 ; Sh ortness of breath R06.02 ; Benign essential hypertension I10 and Renal insufficiency N28.[address] [id number] [place] [address] [id number] May, Hyperlipemia 272.4 and Renal insufficien cy N28.9 [place] [address] [facility] [id number] [address] [place] [phone] Apr, Major depression F32.9 [place] [address] [facility] [id number] [address] [place] [phone] Apr, [place] [address] [facility] [id number] [address] [place] [phone] Apr, Major depressive disorder, r ecurrent, moderate F33.[id number] [place] [address] [id number] Apr, Type II diabetes mellitus E11.9 ; Benign essential hypertension I10 ; Edema R60.9 and Renal insufficiency N28.9 [place] [address] [facility] [id number] [address] [place] [phone] Mar, Major depressive disorder, r ecurrent, moderate F33.1 [place] [address] [facility] [id number] [address] [place] [phone] Mar, [facility] [address] [facility] [id number] [address] [place] [phone] Mar, Major depression F32.9 [facility] [id number] [place] [address] [id number] Mar, Morbid obesity E66.01 ; Benign essential hypertension I10 and Type II diabetes mellitus E11.9 [place] [address] [facility] [id number] [address] [place] [phone] Feb, Major depressive disorder, r ecurrent episode, in partial or unspecified remission 296.35 ; Anxiety state, unspecified 300.00 and Morbid obesity 278.01 [place] [address] [place] [id number] [address] [place] [phone] Feb, Major depressive disorder, r ecurrent, moderate F33.1 [place] [address] [address] [facility] [id number] [address] [place] [phone] Feb, [place] [id number] [place] [id number] Feb, Vomiting 787.03 and Viral syndrome 079.9 9 [place] [address] [address] [place] [id number] [address] [place] [id number] Feb, Major depression, recurrent 296.30 ; Generalized anxiety disorder 300.02 and No condition on [place] II V71.09 [facility] [address] [id number] [id number] Feb, Skin tag 701.9 [place] [address] [address] [facility] [id number] [address] [place] [phone] Feb, [place] [address] [address] [facility] [id number] [address] [place] [phone] Jan, Depression, major, recurrent , moderate 296.32 [facility] [address] [facility] [address] [id number] [id number] Jan, Nausea and vomiting 787.01 ; Rib pain on right side 786.50 and Fall on or from sidewalk curb E880.1 [place] [address] [address] [facility] [id number] [address] [place] [phone] Jan, [facility] [address] [place] [id number] [address] [place] [phone] Jan, Major depressive disorder, r ecurrent episode, in partial or unspecified remission 296.35 and Anxiety state, unspecified 300.00 [facility] [address] [place] [address] A[id number] [place] [id number] Jan, [place] [address] [address] [facility] [id number] [address] [place] [phone] Jan, Depression, major, recurrent , moderate 296.32 [place] [address] [address] [place] [id number] [address] [place] [phone] Jan, Major depression, recurrent 296.30 ; No condition on [place] II V71.09 and No condition on axis III V71.[address] [id number] [id number] Jan, Drug-induced nausea and vomiting 787.01 [place] [address] [address] [facility] [facility] [id number] [address] [place] [address] Jan, Depression, major, recurrent , moderate 296.32 [place] [address] [address] [facility] [id number] [address] [place] [address] Dec, Depression, major, recurrent , moderate 296.[address] [id number] [place] [id number] Dec, Morbid obesity 278.01 ; Metabolic syndro me 277.7 ; Hyperlipemia 272.4 ; Benign essential hypertension 401.1 ; Dietary counseling V65.3 ; Exercise counseling V65.41 and Inflamed skin tag 701.9 [facility] [address] [address] Dec, Depression, major, recurrent , moderate 296.32 [facility] [address] [place] [id number] Dec, [place] [address] [address] Dec, Major depression, recurrent 296.30 ; Anxiety, generalized 300.02 and No condition on [place] V71.09 [place] [address] [address] Dec, Depression, major, recurrent , moderate 296.32 [place] [address] [address] Dec, Major depressive disorder, r ecurrent episode, moderate 296.[address] [address] Dec, Depression, major, recurrent , moderate 296.32 [place] [address] [address] Dec, Depression, major, recurrent , moderate 296.32 [place] [address] [address] Dec, Depression, major, recurrent , moderate 296.32 [place] [address] [address] Dec, Depression, major, recurrent , moderate 296.32 [place] [address] [address] Nov, Depression, major, recurrent , moderate 296.32 [place] [id number] Nov, Major depression 296.20 ; So cial phobia 300.23 and No condition on [place] II V71.[address] [address] 16 Nov, 2014 Depression, major, recurrent , moderate 296.32 [facility] [address] [id number] [address] [place] [address] 09 Nov, 2014 Major depressive disorder, r ecurrent episode, moderate 296.32 and Generalized anxiety disorder 300.02 [facility] [address] [facility] [id number] [address] [place] [address] Nov, Depression, major, recurrent , moderate 296.32 [facility] [address] [id number] [address] [place] [address] Nov, Depression, major, recurrent , moderate 296.32 [facility] [address] [facility] [id number] [address] [place] [address] October, Generalized anxiety disorder 300.02 ; No condition on [place] II V71.09 and Major depressive disorder, recurrent 296.30 [facility] [address] [facility] [id number] [address] [place] [address] 14 Sep, 2014 [facility] [address] [facility] [id number] [address] [place] [address] Sep, [facility] [address] [facility] [id number] [address] [place] [address] Aug, [facility] [address] [facility] [id number] [address] [place] [address] Aug, [facility] [address] [facility] [id number] [address] [place] [address] Aug, [facility] [address] [id number] [address] [place] [address] Aug, [facility] [address] [facility] [id number] [address] [place] [address] Aug, [facility] [address] [facility] [id number] [address] [place] [address] Aug, [facility] [address] [facility] [id number] [address] [place] [address] Aug, [facility] [address] [id number] [address] [place] [address], [place] [address] 20 Aug, 2014 [facility] [address] [id number] [address] [place] [address], [place] [address] 13 Aug, 2014 [facility] [address] [id number] [address] [place] [address], [place] [address] 13 Aug, 2014 [facility] [address] [id number] [address] [place] [address], [place] [address] 13 Aug, 2014 [facility] [address] [id number] [address] [place] [address], [place] [address] 13 Aug, 2014 [facility] [address] [id number] [address] [place] [address], [place] [address] Aug, [facility] [address] [id number] [address] [place] [address], [place] [address] Aug, [facility] [address] [id number] [address] [place] [address], [place] [address] 10 Aug, 2014 [facility] [address] [id number] [address] [place] [address], [place] [address] 10 Aug, 2014 [facility] [address] [id number] [address] [place] [address], [place] [address] Aug, [facility] [address] [id number] [address] [place] [address], [place] [address] Aug, [facility] [address] [id number] [address] [place] [address], [place] [address] 24 Jul, 2014 [facility] [address] [id number] [address] [place] [address], [place] [address] Jul, 2014 [facility] [address] [id number] [address] [place] [address], [place] [address] 16 Jul, 2014 [facility] [address] [id number] [address] [place] [address], [place] [address] 16 Jul, 2014 [facility] [address] [id number] [address] [place] [address], [place] [address] Jul, [facility] [address] [id number] [address] [place] [address], [place] [address] Jul, [facility] [address] [id number] [address] [place] [address], [place] [address] Jun, [facility] [address] [id number] [address] [place] [address], [place] [address] Jun, [facility] [address] [id number] [address] [place] [address], [place] [address] Jun, [facility] [address] [id number] [address] [place] [address], [place] [address] Jun, [facility] [address] [id number] [address] [place] [address], [place] [address] Jun, [facility] [address] [id number] [address] [place] [address], [place] [address] Jun, [facility] [address] [id number] [address] [place] [address], [place] [address] Jun, [facility] [address] [id number] [address] [place] [address], [place] [address] Jun, [facility] [address] [id number] [address] [place] [address], [place] [address] Jun, [facility] [address] [id number] [address] [place] [address], [place] [address] Jun, [facility] [address] [id number] [address] [place] [address] Jun, [facility] [address] [id number] [address] [place] [address], [place] [address] Jun, [facility] [place] [address] [id number] [place] [id number] Jun, [facility] [address] [id number] [address] [place] [address], [place] [address] Jun, [facility] [address] [id number] [address] [place] [address], [place] [address] Jun, [facility] [address] [id number] [address] [place] [address], [place] [address] Jun, [facility] [address] [id number] [address] [place] [address], [place] [address] May, [facility] [address] [id number] [address] [place] [address], [place] [address] May, [facility] [address] [id number] [address] [place] [address], [place] [address] May, [facility] [address] [id number] [address] [place] [address], [place] [address] May, [facility] [address] [id number] [address] [place] [address], [place] [address] Apr, [facility] [address] [id number] [address] [place] [address], [place] [address] Apr, [facility] [address] [id number] [address] [place] [address], [place] [address] Apr, [facility] [address] [id number] [address] [place] [address], [place] [address] Apr, [facility] [address] [id number] [address] [place] [address], [place] [address] Apr, [facility] [address] [id number] [address] [place] [address], [place] [address] Apr, [facility] [address] [id number] [address] [place] [address], [place] [address] Apr, [facility] [address] [id number] [address] [place] [address], [place] [address] Apr, [facility] [address] [id number] [address] [place] [address], [place] [address] Apr, [facility] [address] [id number] [address] [place] [address], [place] [address] Apr, [facility] [address] [id number] [address] [place] [address], [place] [address] Apr, [facility] [address] [id number] [address] [place] [address], [place] [address] Apr, [facility] [address] [id number] [address] [place] [address], [place] [address] Apr, [facility] [address] [id number] [address] [place] [address], [place] [address] Apr, [facility] [address] [id number] [address] [place] [address], [place] [address] Apr, [facility] [address] [id number] [address] [place] [address], [place] [address] Apr, [facility] [address] [id number] [address] [place] [address], [place] [address] Apr, [facility] [address] [id number] [address] [place] [address], [place] [address] Apr, [facility] [address] [id number] [address] [place] [address], [place] [address] Apr, [facility] [address] [id number] [address] [place] [address], [place] [address] Apr, [facility] [address] [id number] [address] [place] [address] Mar, [facility] [address] [id number] [address] [place] [address] Mar, [facility] [address] [id number] [address] [place] [address], [place] [address] Mar, [facility] [address] [id number] [address] [place] [address], [place] [address] Mar, [facility] [address] [id number] [address] [place] [address], [place] [address] Mar, [facility] [address] [id number] [address] [place] [address], [place] [address] Mar, [facility] [address] [id number] [address] [place] [address], [place] [address] Mar, [facility] [address] [id number] [address] [place] [address], [place] [address] Mar, [facility] [address] [id number] [address] [place] [address], [place] [address] Mar, [facility] [address] [id number] [address] [place] [address], [place] [address] Mar, [facility] [address] [id number] [address] [place] [address], [place] [address] Feb, [facility] [address] [id number] [address] [place] [address], [place] [address] Feb, [facility] [address] [id number] [address] [place] [address], [place] [address] Feb, [facility] [address] [id number] [address] [place] [address], [place] [address] Feb, [facility] [address] [id number] [address] [place] [address], [place] [address] Jan, [facility] [address] [id number] [address] [place] [address], [place] [address] Jan, [facility] [address] [id number] [address] [place] [address], [place] [address] Jan, [facility] [address] [id number] [address] [place] [address], [place] [address] Jan, [facility] [address] [id number] [address] [place] [address], [place] [address] Jan, [facility] [address] [id number] [address] [place] [address], [place] [address] Jan, [facility] [address] [id number] [address] [place] [address], [place] [address] Dec, [facility] [address] [id number] [facility] [place] [address] Dec, [facility] [address] [id number] [facility] [place] [address] Nov, [facility] [address] [id number] [facility] [place] [address] Nov, [facility] [address] [id number] [address] [place] [address], [place] [address] Nov, [facility] [address] [id number] [address] [place] [address], [place] [address] Nov, [facility] [address] [id number] [address] [place] [address], [place] [address] Nov, [facility] [address] [id number] [address] [place] [address], [place] [address] Nov, [facility] [address] [id number] [address] [place] [address], [place] [address] Sep, [facility] [address] [id number] [address] [place] [address], [place] [address] Sep, [facility] [address] [id number] [address] [place] [address], [place] [address] Sep, [facility] [address] [id number] [address] [place] [address], [place] [address] Sep, [facility] [address] [id number] [address] [place] [address], [place] [address] Aug, [facility] [address] [id number] [address] [place] [address], [place] [address] Aug, [facility] [address] [id number] [address] [place] [address], [place] [address] Jul, [facility] [address] [id number] [address] [place] [address], [place] [address] Jul, [facility] [address] [id number] [address] [place] [address], [place] [address] Jun, [facility] [address] [id number] [address] [place] [address], [place] [address] Jun, [facility] [address] [id number] [address] [place] [address], [place] [address] Jun, [facility] [address] [id number] [address] [place] [address], [place] [address] Jun, [facility] [address] [id number] [address] [place] [address], [place] [address] May, [facility] [address] [id number] [address] [place] [address], [place] [address] May, [facility] [address] [id number] [address] [place] [address], [place] [address] May, [facility] [address] [id number] [address] [place] [address], [place] [address] May, [facility] [address] [id number] [address] [place] [address], [place] [address] May, [facility] [address] [id number] [address] [place] [address], [place] [address] May, [facility] [address] [id number] [address] [place] [address], [place] [address] Apr, [facility] [address] [id number] [address] [place] [address], [place] [address] Apr, [facility] [address] [id number] [address] [place] [address], [place] [address] Apr, [facility] [address] [id number] [address] [place] [address], [place] [address] Apr, [facility] [address] [id number] [address] [place] [address], [place] [address] Mar, [facility] [address] [id number] [address] [place] [address], [place] [address] Mar, [facility] [address] [id number] [address] [place] [address], [place] [address] Mar, [facility] [address] [id number] [address] [place] [address], [place] [address] Mar, [facility] [address] [id number] [address] [place] [address], [place] [address] Feb, [facility] [address] [id number] [place] [id number] Jan, [facility] [address] [id number] [address] [place] [address], [place] [address] Jan, [facility] [address] [id number] [address] [place] [address], [place] [address] Dec, [facility] [address] [id number] [address] [place] [address], [place] [address] Dec, [facility] [address] [id number] [address] [place] [address], [place] [address] Dec, [facility] [address] [id number] [place] [id number] Dec, [facility] [address] [id number] [address] [place] [address], [place] [address] Nov, [facility] [address] [id number] [address] [place] [address], [place] [address] Nov, [facility] [address] [id number] [address] [place] [address], [place] [address] Nov, [facility] [address] [id number] [address] [place] [address], [place] [address] Nov, [facility] [address] [id number] [address] [place] [address], [place] [address] Nov, [facility] [address] [id number] [address] [place] [address], [place] [address] October, [facility] [address] [id number] [address] [place] [address], [place] [address] October, [facility] [address] [facility] [id number] [place] [address] Aug, [facility] [address] [facility] [id number] [address] [place] [address] Nov, IMMUNIZATIONS No Known Immunizations SOCIAL HISTORY Never Assessed REASON FOR VISIT Pt requesting hearing referral PLAN OF CARE VITAL SIGNS MEDICATIONS Medication Instructions Dosage Frequency Start Date End Date Duration S tatus Patanol 0.1 % Ophthalmic Twice a day 1 drop into affected eye 12h 23 Mar, 2017 Active RESULTS No Results PROCEDURES No Known [...] 03/2016 Hospitalization History gastric sleeve Hospitalization History [facility] ER Trouble with left shoulder blade 08/2017
--- OUTSIDE RECORDS SUMMARY | 2019-11-29 09:34 | XMS REPORT ---
Author Curt Reid Organization [facility] Address [address] [place] [address] Care Team Providers Care Bulk Tank Driver Name Role Phone RODOLFO ALDY Unavailable PROBLEMS Type Condition ICD9-CM Code [id number] Code Onset Dates Condition S tatus SNOMED Code Problem Morbid obesity E66.01 Active 28122 6002 Problem Benign essential hypertension I10 Active 2438401 Problem Type II diabetes mellitus E11.9 Acti ve 37170488 Problem Hyperlipemia E78.5 Active 7592230 4 Problem Major depression F32.9 Active 370 733018 Problem Insomnia G47.00 Active 713911604 Problem Metabolic syndrome E88.81 Active 2 55455391 Problem Acute bacterial conjunctivitis of left eye H10.32 Active 009226784 Problem Edema R60.9 Active 118091675 Problem Renal insufficiency N28.9 Active 989871133 Problem Recurrent major depressive disorder, in partial remission F33.41 Active 19854486 Problem Callus of foot L84 Active 03542 1005 ALLERGIES Substance Reaction Event Type Date Status Egg White throat swells Non Drug Allergy Sep, Active Cows Milk throat swells Non Drug Allergy Sep, Active Wheat throat swells Non Drug Allergy Sep, Active Peanuts throat swells Non Drug Allergy Sep, Active [place] False [place] throat swells Non Drug Allergy Sep, Active [place] throat swells Non Drug Allergy Sep, Active Ragweed throat swells Non Drug Allergy Sep, Active SOCIAL HISTORY Never Assessed PLAN OF CARE Activity Details Follow Up 4-6week prophy. Restoratives Reason: VITAL SIGNS Blood pressure systolic 128 mmHg 2016-09-26 Blood pressure diastolic 78 mmHg 2016-09-26 MEDICATIONS Medication Instructions Dosage Frequency Start Date End Date Duration S tatus Singulair Active Trintellix 20 mg Orally Once a day 1 tablet 24h Active Atenolol 100 MG TAKE ONE TABLET BY MOUTH ONCE DAILY. 90 Active Flovent HFA 110 mcg/actuation 1-3 Puffs 1 time per day 1 4 Oct, 2012 Active Omeprazole 40 MG Orally Once a day 1 tablet 24h 0 da ys Active Fluticasone Furoate Acti ve Zofran Active ZyrTEC Active Lisinopril 40 MG TAKE ONE TABLET BY MOUTH ONCE DAILY. 90 Active RESULTS No Results PROCEDURES Procedure Date Ordered Result Body Site COMP ORAL EVALUATION - NEW/EST PT September 26, 2016 INTRAORL - CMPL SERIES CODE 43594 September 26, 2016 Full mouth debridement September 26, 2016 IMMUNIZATIONS No Known Immunizations MEDICAL (GENERAL) HISTORY Type Description Date Medical History sleep apnea Medical History hypertension Medical History 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 Medical History H yplori- dx 12/2014 Medical History Echo 05/2015- Stage II diast olic dysfunction, LV hypertrophy, EF 60% Surgical History EGD- Esophagus stretching- 2014 Surgical History gastric sleeve 03/2016 Hospitalization History gastric sleeve
--- OUTSIDE RECORDS SUMMARY | 2019-11-29 09:34 | XMS REPORT ---
Author Author Curt REBOLLAR [facility] eClinicalWorks Address Unknown Phone Unavailable Care Team Providers Care Transition Teacher Name Role Phone QUINTIN REBOLLAR CP Unavailable Allergies No Known Allergies Problems Problem Type Condition Code Onset Dates Condition Statu s Assessment Major depression F32.9 Active Problem Hyperlipemia E78.5 Active Assessment Insomnia G47.00 Active Problem Renal insufficiency N28.9 Active Problem Type II diabetes mellitus E11.9 Ac tive Problem Edema R60.9 Active Problem Insomnia G47.00 Active Problem Major depression F32.9 Active Problem Morbid obesity E66.01 Active Problem Benign essential hypertension I10 Active Medications No Known Medications Procedures Procedure Coding System Code Date Psych diagnostic evaluation, established patient CPT-4 [id number] May 28, 2015 Results No Known Results Summary Purpose eClinicalWorks Submission
--- OUTSIDE RECORDS SUMMARY | 2019-11-29 09:34 | XMS REPORT ---
Author Curt Hess [facility] e[employer] Address Unknown Phone Unavailable Care Team Providers Care Gold Leaf Roller Name Role Phone CHRIS DIAZ CP Unavailable Allergies No Known Allergies Problems Problem Type Condition Code Onset Dates Condition Statu s Problem Benign essential hypertension I10 Active Problem Type II diabetes mellitus E11.9 Ac tive Problem Morbid obesity E66.01 Active Problem Hyperlipemia E78.5 Active Problem Insomnia G47.00 Active Problem Major depression F32.9 Active Medications No Known Medications Results No Known Results Summary Purpose eClinicalWorks Submission
--- OUTSIDE RECORDS SUMMARY | 2019-11-29 09:34 | XMS REPORT ---
Author Author Curt TIRADO Organization [employer] Address Unknown Phone Unavailable Care Team Providers Care Perfume And Toilet Water Maker Name Role Phone RON TIRADO CP Unavailable Allergies No Known Allergies Problems Problem Type Condition Code Onset Dates Condition Statu s Problem Hyperlipemia E78.5 Active Problem Insomnia G47.00 Active Problem Major depression F32.9 Active Assessment Recurrent major depressive disorder, in partial remiss ion F33.41 Active Problem Callus of foot L84 Active [...]
--- OUTSIDE RECORDS SUMMARY | 2019-11-29 09:34 | XMS REPORT ---
Author Curt Hess [facility] eClinicalWorks Address Unknown Phone Unavailable Care Team Providers Care Plant Protection Officer Name Role Phone CHRIS DIAZ CP Unavailable Allergies, Adverse Reactions, Alerts Substance Reaction Event Type Wheat throat swells Non Drug Allergy Egg White throat swells Non Drug Allergy Cows Milk throat swells Non Drug Allergy Peanuts throat swells Non Drug Allergy Tenerius [place] throat swells Non Drug Allergy [place] throat swells Non Drug Allergy Ragweed throat swells Non Drug Allergy Problems Problem Type Condition Code Onset Dates Condition Statu s Assessment Type II diabetes mellitus E11.9 Ac tive Problem Major depression F32.9 Active Problem Hyperlipemia E78.5 Active Problem Edema R60.9 Active Problem Renal insufficiency N28.9 Active Problem Callus of foot L84 Active Problem Benign essential hypertension I10 Active Problem Insomnia G47.00 Active Problem Type II diabetes mellitus E11.9 Ac tive Problem Morbid obesity E66.01 Active Assessment Renal insufficiency N28.9 Active Assessment Benign essential hypertension I10 Active Assessment Callus of foot L84 Active Medications Medication Code System Code Instructions Start Date End Date Status Dosage Montelukast Sodium [facility] 97656545861 10 MG T MERYL ONE TABLET BY MOUTH DAILY Flovent HFA [facility] [address]-26 110 mcg/actuation October 23, 2012 1-3 Puffs 1 time per day Meloxicam [facility] 37690911370 15 MG 1 take 1 t ablet by mouth 1 time per day Rexulti [facility] [address]-33 1 MG Orally Once a day Jun 19, 2015 1 tablet Omeprazole [facility] [address]-02 20 MG Orally Once a day 1 capsule Atenolol [facility] [address]-18 100 MG Orally Once a day August 21, 2014 1 tablet MetFORMIN HCl ER (MOD) [facility] [address]-17 1000 MG O rally twice a day (FOLLOW UP IN JAN) January 08, 2015 1 tablet with ev ening meal Terbinafine [facility] [address]-39 1 % Externally 2 times a day- et Jul 24, 2015 September 22, 2015 one application Lisinopril [facility] [address]-81 40 MG Orally Once a day August 21, 2014 1 Tablet Brintellix [facility] [address]-86 20 MG Orally Once a day for one w [place] November 18, 2014 1 tablet Tricor [facility] 83848637992 145 MG 1 tablet by Oral route 1 time per day [facility] Flonase NDC 0 50 mcg/actuation November 29, 2013 inhale 1 spray (50 mcg) in each nostril by intranasal route 2 times per day Furosemide [facility] [address]-24 40 MG Orally Once a day TAKE 1 tablet Procedures Procedure Coding System Code Date COMPREHEN METABOLIC PANEL CPT-4 79405 Jul VENIPUNCT, ROUTINE* CPT-4 15925 Jul 23, 2015 GLYCATED HEMOGLOBIN TEST CPT-4 38572 Jul 23, 2015 Office Visit, Est Pt., Level 4 CPT-4 89084 F 2015 Vital Signs Date/Time: Jul 23, 2015 Temperature 99.2 F Weight 457.5 lbs Height 72 in BMI 62.04 Index Blood Pressure Diastolic 86 mmHg Blood Pressure Systolic 138 mmHg Cardiac Monitoring Heart Rate 91 bpm Results Name Result Date Reference Range Unit Abnormali ty Flag A1C (IN HOUSE) ----A1C IN HOUSE 6.3 [id number] 4.3 - 5.6 % ----Previous A1c 6.2 20150723 ----Lot [id number] ----Exp date [id number] ROUTINE VENIPUNCTURE Summary Purpose eClinicalWorks Submission
--- OUTSIDE RECORDS SUMMARY | 2019-11-29 09:34 | XMS REPORT ---
Author Author Curt TRIMBLE [facility] eClinicalWorks Address Unknown Phone Unavailable Care Team Providers Care Receiver Stocker Name Role Phone [facility] CP Unavailable Allergies No Known Allergies Problems Problem Type Condition Code Onset Dates Condition Statu s Assessment Major depressive disorder, recurrent, moderate F33.1 Active Problem Major depression F32.9 Active Problem Hyperlipemia E78.5 Active Problem Edema R60.9 Active Problem Renal insufficiency N28.9 Active Problem Callus of foot L84 Active Problem Benign essential hypertension I10 Active Problem Insomnia G47.00 Active Problem Type II diabetes mellitus E11.9 Ac tive Problem Morbid obesity E66.01 Active Medications No Known Medications Procedures Procedure Coding System Code Date CARE COORDINATION CPT-4 S0281 September 28, 2015 Results No Known Results Summary Purpose eClinicalWorks Submission
--- OUTSIDE RECORDS SUMMARY | 2019-11-29 09:34 | XMS REPORT ---
Author Author Curt GRIGSBY Organization e[employer]Works Address Unknown Phone Unavailable Care Team Providers Care Lean [employer] Senior Specialist Name Role Phone DILSHAD GRIGSBY Unavailable Allergies No Known Allergies Problems Problem [...] II diabetes mellitus E11.9 Ac tive Medications Medication Code System Code Instructions Start Date End Date Status Dosage Trintellix [facility] [address]-90 20 MG Orally Once a day Mar 24, 2016 1 tablet Results No Known Results Summary Purpose eClinicalWorks Submission
--- OUTSIDE RECORDS SUMMARY | 2019-11-29 09:34 | XMS REPORT ---
Author Author Curt DIAZ Organization [facility] Address [address] [place] [address] Care Team Providers Care Rose Grading Supervisor Name Role Phone CHRIS DIAZ Unavailable PROBLEMS Type Condition ICD9-CM Code TCM95-MM Code Onset Dates Condition S tatus SNOMED Code Problem Major depression F32.9 Active 370 545975 Problem Morbid obesity E66.01 Active 14918 6002 Problem Benign essential hypertension I10 Active 6598632 Problem Insomnia G47.00 Active 266453527 Problem Hyperlipemia E78.5 Active 2532915 4 Problem Acute bacterial conjunctivitis of left eye H10.32 Active 030800175 Problem Recurrent major depressive disorder, in partial remission F33.41 Active 46979477 Problem Edema R60.9 Active 217169818 Problem Type II diabetes mellitus E11.9 Acti ve 95341125 Problem Callus of foot L84 Active 98308 1005 Problem Renal insufficiency N28.9 Active 904038306 ALLERGIES No Information SOCIAL HISTORY Never Assessed PLAN OF CARE VITAL SIGNS MEDICATIONS Medication Instructions Dosage Frequency Start Date End Date Duration S tatus Zithromax 250 MG Orally Once a day 2 tablets on the fi rst day, then 1 tablet daily for 4 days 24h Jul, Jul, 5 day(s) Active Tessalon Perles 100 mg Orally Three times a day 1 capsule as needed 8h Jul, 07 days Active RESULTS No Results PROCEDURES No Known procedures IMMUNIZATIONS No Known Immunizations MEDICAL (GENERAL) HISTORY Type Description Date Medical History sleep apnea Medical History hypertension Medical History 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 Medical History H yplori- dx 12/2014 ANGUIANO Medical History Echo 05/2015- Stage II diast olic dysfunction, LV hypertrophy, EF 60% Surgical History EGD- Esophagus stretching- ANGUIANO 2014 Surgical History gastric sleeve 03/2016 Hospitalization History gastric sleeve
--- OUTSIDE RECORDS SUMMARY | 2019-11-29 09:34 | XMS REPORT ---
Author Author Curt REBOLLAR [facility] eClinicalWorks Address Unknown Phone Unavailable Care Team Providers Care Coal Chemist Name Role Phone QUINTIN REBOLLAR CP Unavailable Allergies, Adverse Reactions, Alerts Substance Reaction Event Type Wheat throat swells Non Drug Allergy Egg White throat swells Non Drug Allergy Cows Milk throat swells Non Drug Allergy Peanuts throat swells Non Drug Allergy Tenerius [place] throat swells Non Drug Allergy [place] throat swells Non Drug Allergy Ragweed throat swells Non Drug Allergy Problems Problem Type Condition Code Onset Dates Condition Statu s Problem Hyperlipemia E78.5 Active Assessment Major depression F32.9 Active Problem Renal insufficiency N28.9 Active Problem Type II diabetes mellitus E11.9 Ac tive Problem Edema R60.9 Active Problem Insomnia G47.00 Active Problem Major depression F32.9 Active Problem Morbid obesity E66.01 Active Problem Benign essential hypertension I10 Active Medications No Known Medications Procedures Procedure Coding System Code Date Psychotherapy, patient &/family, 45 minutes, established patient CPT-4 13197 Jul 17, 2015 Results No Known Results Summary Purpose eClinicalWorks Submission
--- OUTSIDE RECORDS SUMMARY | 2019-11-29 09:34 | XMS REPORT ---
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 Role Phone CHRIS DIAZ CP Unavailable Allergies, Adverse Reactions, Alerts Substance Reaction Event Type Wheat throat swells Non Drug Allergy Egg White throat swells Non Drug Allergy Cows Milk throat swells Non Drug Allergy Peanuts throat swells Non Drug Allergy Tenerius [place] throat swells Non Drug Allergy [place] throat swells Non Drug Allergy Ragweed throat swells Non Drug Allergy Problems Problem Type Condition ICD-9 Code Onset Dates Condition Statu s Problem Anxiety state, unspecified 300.00 A ctive Problem Major depressive disorder, r ecurrent episode, in partial or unspecified remission 296.35 Active Problem Unspecified sleep apnea 780.57 Acti ve Assessment Skin tag 701.9 Active Problem Hyperlipemia 272.4 Active Problem Benign essential hypertension 401.1 Active Problem Metabolic syndrome 277.7 Active Problem Chronic rhinitis 472.0 Active Problem Morbid obesity 278.01 Active Problem Edema 782.3 Active Problem Insomnia, unspecified 780.52 Active Medications Medication Code System Code Instructions Start Date End Date Status Dosage Abilify [facility] [address]-44 5 MG Orally Once a day 1 tablet Lisinopril [facility] [address]-73 40 MG Orally Once a day August 21, 2014 1 Tablet by Oral route 1 time per day Omeprazole [facility] [address]-65 20 MG Orally Once a day 1 capsule Singulair [facility] 82659780280 10 MG 1 Tablet b y Oral route 1 time per day take 1 tablet by mouth 1 time per day Brintellix [facility] [address]-91 20 MG Orally Once a day for one w [place] November 18, 2014 1 tablet Tricor [facility] 10019600662 145 MG 1 tablet by Oral route 1 time per day [facility] Victoza [facility] [address]-36 18 MG/3ML Subcutaneous Once a day 0.2 ml MetFORMIN HCl ER (MOD) [facility] [address]-98 1000 MG Orally tw ice a day January 08, 2015 1 tablet with evenin g meal Atenolol [facility] [address]-31 100 MG Orally Once a day August 21, 2014 1 tablet by Oral route 1 time per day Meloxicam [facility] 94736029527 15 MG 1 take 1 t ablet by mouth 1 time per day Flovent HFA [facility] [address]-79 110 mcg/actuation October 23, 2012 1-3 Puffs 1 time per day Furosemide [facility] 61990596763 20 MG TAKE 1 TA BLET BY MOUTH ONCE DAILY NEEDED ONLY WITH EXCESSIVE SWELLING Procedures Procedure Coding System Code Date Office Visit, Est Pt., Level 3 CPT-4 67279 S ept 2014 REMOVAL OF SKIN TAGS CPT-4 37083 Feb 12 15 Vital Signs Date/Time: Feb 12, 2015 Temperature 98.4 F Weight 453.1 lbs Height 72 in BMI 61.44 Index Blood Pressure Diastolic 78 mmHg Blood Pressure Systolic 132 mmHg Cardiac Monitoring Heart Rate 72 bpm Results No Known Results Summary Purpose eClinicalWorks Submission
--- OUTSIDE RECORDS SUMMARY | 2019-11-29 09:35 | XMS REPORT ---
Author Author Curt Avendaño Organization [facility] Address [address] [place] [address] Care Team Providers Care Ski Patrol Name Role Phone francofrancoISAACQUINTIN Caceres Unavailable PROBLEMS Type Condition ICD9-CM Code VUA00-JK Code Onset Dates Condition S tatus SNOMED Code Problem Recurrent major depressive disorder, in partial remission F33.41 Active 64107719 Problem Metabolic syndrome E88.81 Active 2 18680207 Problem Acute bacterial conjunctivitis of left eye H10.32 Active 878337688 Problem DANIELA (generalized anxiety disorder) F41.1 Active 35700851 Problem BMI 45.0-49.9, adult Z68.42 Active 173989454 Problem Anxiety F41.9 Active 24029125 Problem Severe episode of recurrent major depressive disorder, without psychotic features F33.2 Active 85309329 Problem Mixed obsessional thoughts and acts F42.2 Active 91203354 Problem Vitamin D deficiency E55.9 Active 27583143 Problem Insomnia G47.00 Active 071216162 Problem Major depression F32.9 Active 370 501179 Problem Hyperlipemia E78.5 Active 5180081 4 Problem Benign essential hypertension I10 Active 9660884 Problem Renal insufficiency N28.9 Active 789239684 Problem Morbid obesity E66.01 Active 54223 6002 Problem Edema R60.9 Active 112931646 Problem Type II diabetes mellitus E11.9 Acti ve 50208332 Problem Callus of foot L84 Active 63400 1005 ALLERGIES Substance Reaction Event Type Date Status Egg White throat swells Non Drug Allergy Apr, Active Cows Milk throat swells Non Drug Allergy Apr, Active Wheat throat swells Non Drug Allergy Apr, Active Peanuts throat swells Non Drug Allergy Apr, Active T[place]ius [place] throat swells Non Drug Allergy Apr, Active Hurricane throat swells Non Drug Allergy Apr, Active Ragweed throat swells Non Drug Allergy Apr, Active ENCOUNTERS Encounter Location Date Diagnosis [facility] [address] [facility] [id number] [address] [place] [phone] Nov, [facility] [address] [id number][place] [id number] October, [facility] [address] [id number], [place] [id number] October, [facility] [address] [facility] [id number] [address] [place] [phone] October, BMI 45.0-49.9, adult Z68.42 ; Mixed obsessional thoughts and acts F42.2 ; Recurrent major depressive disorder, in partial remission F33.41 and DANIELA (generalized anxiety disorder) F41.1 [facility] [address] [id number], [place] [id number] October, Benign essential hypertension I10 ; Morb id obesity E66.01 and BMI 45.0-49.9, adult Z68.42 [facility] [address] [id number], [place] [id number] Sep, [facility] [address] [id number], [place] [id number] Sep, [facility] [address] [id number], [place] [id number] Sep, [facility] [address] [id number], [place] [id number] Sep, Hospital discharge follow-up Z09 ; Aller gic rhinitis, unspecified seasonality, unspecified trigger J30.9 and Shortness of breath R06.02 [facility] [address] [id number], [place] [id number] Sep, Recurrent major depressive disorder, in partial remission F33.41 [facility] [address] [id number], [place] [id number] Aug, Irritable mood R45.4 [facility] [address] [facility] [id number] [address] [place] [address] Aug, [facility] [address] [id number], [place] [id number] Jul, Benign essential hypertension I10 ; Robert a R60.9 and Impacted cerumen of left ear H61.22 [place] [address] [place] [id number] [address] [place] [phone] Jul, Major depression F32.9 ; Rec urrent major depressive disorder, in partial remission F33.41 and Anxiety F41.9 [place] [address] [facility] [id number] [address] [place] [address] Jun, Major depression F32.9 ; Rec urrent major depressive disorder, in partial remission F33.41 and Anxiety F41.[address] [place] [address] [id number], [place] [id number] Jun, Major depression F32.9 ; Morbid obesity E66.01 ; Irritable mood R45.4 ; Hand weakness R29.898 and Vitamin D deficiency E55.[address] [place] [place] [address] [id number], [place] [id number] Jun, [place] [address] [id number], [place] [id number] May, Major depression F32.9 [place] [address] [facility] [id number] [address] [place] [phone] May, Major depression F32.[address] [place] [place] [address] [id number], [place] [id number] May, BMI 50.0-59.9, adult Z68.43 ; Major depr ession F32.9 ; Anxiety F41.9 ; Hypertrophic toenail L60.2 and Pain of left great toe M79.[address] [place] [place] [address] [id number], [place] [id number] May, Recurrent major depressive disorder, in partial remission F33.41 [place] [address] [facility] [id number] [address] [place] [phone] Apr, [facility] [address] [id number], [place] [id number] Apr, [facility] [address] [facility] [id number] [address] [place] [address] Apr, Major depression F32.9 [facility] [id number] [place] [address] [id number] Apr, Severe episode of recurrent major depres sive disorder, without psychotic features F33.2 ; Anxiety F41.9 and Insomnia G47.00 [facility] [address] [id number], [place] [id number] Apr, [facility] [address] [facility] [id number] [address] [place] [address] Apr, [facility] [address] [id number], [place] [id number] Apr, [facility] [id number] [place] [address] [id number] Mar, [facility] [id number] [place] [address] [id number] Mar, Allergic conjunctivitis of both eyes H10 .13 [facility] [address] [facility] [id number] [address] [place] [address] Mar, Major depression F32.9 [facility] [address] [id number], [place] [id number] Mar, Metabolic syndrome E88.81 ; History of g astric bypass Z98.890 ; Benign essential hypertension I10 and Allergic conjunctivitis of both eyes H10.13 [facility] [address] [facility] [id number] [address] [place] [address] Mar, Major depression F32.9 [facility] [address] [id number], [place] [id number] Feb, [facility] [address] [facility] [id number] [address] [place] [phone] 12 Feb, 2017 Major depression F32.[id number] [place] [address] [id number] Feb, Subacute maxillary sinusitis J01.00 and Bronchitis J40 [place] [address] [facility] [id number] [address] [place] [address] Feb, Major depressive disorder, r ecurrent, moderate F33.1 [facility] [address] [facility] [address] [id number], [place] [id number] Jan, [id number] [place] [address] [id number] Jan, Acute non-recurrent maxillary sinusitis J01.00 and Skin tag L91.[address] [id number] [place] [address] [id number] Jan, Cough R05 and Sinus congestion R09.[id number] [place] [address] [id number] Jan, [address] [id number] [place] [address] [id number] Jan, Benign essential hypertension I10 ; Hist ory of gastric bypass Z98.890 and Nausea and vomiting in adult R11.2 [place] [address] [place] [id number] [address] [place] [phone] Jan, Major depressive disorder, r ecurrent, moderate F33.1 [place] [address] [facility] [id number] [address] [place] [address] Dec, Insomnia G47.00 ; Recurrent major depressive disorder, in partial remission F33.41 and Morbid obesity E66.01 [facility] [address] [facility] [facility] [address] [id number], [place] [id number] Dec, [id number] [place] [address] [id number] Dec, Chronic bacterial conjunctivitis of left eye H10.[address] [place] [address] [facility] [address] [id number], [place] [id number] 27 Nov, [address] [id number], [place] [id number] Nov, Dental examination Z01.[address] [id number], [place] [id number] 23 Nov, 2016 Benign essential hypertension I10 ; Hist ory of gastric bypass Z98.890 and Nausea and vomiting in adult R11.2 [facility] [address] [facility] [id number] [address] [place] [phone] 13 Nov, 2016 Major depressive disorder, r ecurrent, moderate F33.1 ; Generalized anxiety disorder F41.1 and Insomnia due to other mental disorder F51.05 [place] [address] [facility] [id number] [address] [place] [address] 12 Nov, 2016 Recurrent major depressive d isorder, in partial remission F33.41 ; Insomnia G47.00 and Morbid obesity E66.01 [facility] [address] [id number] [place] [id number] October, Abscess of left arm L02.414 [place] [address] [facility] [id number] [address] [place] [address] October, Morbid obesity E66.01 ; Lida r depression F32.9 and Recurrent major depressive disorder, in partial remission F33.41 [address] [id number], [place] [id number] Sep, Benign essential hypertension I10 ; Morb id obesity E66.01 ; S/P gastric bypass Z98.84 ; Abscess L02.91 and Chronic bacterial conjunctivitis of left eye H10.[address] [id number], [place] [id number] 17 Sep, 2016 Dental examination Z01.20 [facility] [address] [facility] [id number] [address] [place] [phone] 11 Sep, 2016 Morbid obesity E66.01 ; Lida r depression F32.9 and Recurrent major depressive disorder, in partial remission F33.41 [facility] [address] [facility] [id number] [address] [place] [phone] Jul, [facility] [address] [facility] [id number] [address] [place] [phone] Jul, Major depressive disorder, r ecurrent, moderate F33.1 [place] [address] [facility] [id number] [address] [place] [phone] Jul, Major depressive disorder, r ecurrent, moderate F33.1 and Generalized anxiety disorder F41.1 [facility] [id number] [place] [address] [id number] Jul, Cough R05 [place] [address] [facility] [id number] [address] [place] [address] Jul, Morbid obesity E66.01 ; Lida r depression F32.9 and Recurrent major depressive disorder, in partial remission F33.41 [facility] [id number] [place] [address] [id number] Jul, [facility] [id number] [place] [address] [id number] Jul, [facility] [address] [id number] [place] [address] [id number] Jul, Gastroenteritis K52.9 and Cough R05 [facility] [id number] [place] [address] [id number] Jun, Acute bacterial conjunctivitis of left e ye H10.32 [place] [address] [facility] [id number] [address] [place] [phone] Jun, [place] [address] [facility] [id number] [address] [place] [phone] Jun, Recurrent major depressive d isorder, in partial remission F33.41 [place] [address] [facility] [id number] [address] [place] [address] May, Major depression F32.9 and M orbid obesity E66.01 [facility] [address] [facility] [id number] [address] [place] [phone] May, [facility] [address] [facility] [id number] [place] [address] [id number] May, Thrush B37.0 [facility] [address] [facility] [id number] [address] [place] [address] Apr, Major depressive disorder, r ecurrent, moderate F33.1 [facility] [address] [facility] [id number] [address] [place] [address] Apr, Insomnia G47.00 ; Major depr ession F32.9 and Recurrent major depressive disorder, in partial remission F33.41 [facility] [address] [facility] [id number] [address] [place] [address] Apr, [place] [address] [facility] [id number] [address] [place] [address] Apr, Major depression F32.9 and R ecurrent major depressive disorder, in partial remission F33.[id number] [place] [address] [id number] Mar, Benign essential hypertension I10 ; Morb id obesity E66.01 ; Impacted cerumen of both ears H61.23 ; Laceration of finger of right hand, initial encounter S61.219A and Encounter for immunization Z23 [facility] [address] [facility] [id number] [address] [place] [phone] Mar, [facility] [address] [facility] [id number] [address] [place] [phone] Mar, [place] [address] [facility] [id number] [address] [place] [phone] Mar, [address] [id number], [place] [id number] Feb, Nausea R11.0 ; Blood in the stool K92.1 and Benign essential hypertension I10 [facility] [address] [facility] [id number] [address] [place] [phone] Feb, Major depression F32.9 and R ecurrent major depressive disorder, in partial remission F33.[address] [facility] [address] [id number], [place] [id number] Feb, [facility] [address] [id number], [place] [id number] Feb, Recurrent major depressive disorder, in partial remission F33.[address] [facility] [address] [id number], [place] [id number] Jan, [facility] [address] [address] [id number], [place] [id number] Jan, Benign essential hypertension I10 ; Robert a R60.9 and Hyperlipidemia, unspecified hyperlipidemia type E78.5 [facility] [address] [id number], [place] [id number] Jan, Recurrent major depressive disorder, in partial remission F33.41 [facility] [address] [id number] [place] [id number] Jan, [facility] [address] [id number], [place] [id number] Jan, [facility] [address] [id number], [place] [id number] Jan, [facility] [address] [facility] [id number] [address] [place] [phone] Jan, [facility] [address] [facility] [id number] [address] [place] [address] Dec, [facility] [address] [facility] [id number] [address] [place] [phone] Nov, [facility] [address] [facility] [id number] [address] [place] [phone] Nov, Major depression F32.9 [facility] [address] [facility] [id number] [address] [place] [address] Nov, [facility] [address] [facility] [id number] [address] [place] [address] Nov, [place] [address] [facility] [id number] [address] [place] [address] Nov, Major depressive disorder, r ecurrent episode, mild F33.0 and Anxiety F41.[address] [id number], [place] [id number] Nov, [place] [id number] [place] [address] [id number] October, Left elbow pain M25.522 and Other season al allergic rhinitis J30.[id number] [place] [address] [id number] October, [place] [address] [facility] [id number] [address] [place] [address] October, Major depressive disorder, r ecurrent, moderate F33.1 [facility] [address] [facility] [id number] [address] [place] [phone] October, Major depression F32.9 [place] [address] [place] [id number] [address] [place] [address] Sep, [place] or callus L84 and Onych omycosis B35.1 [place] [address] [place] [id number] [address] [place] [phone] Sep, Major depressive disorder, r ecurrent, moderate F33.1 [facility] [address] [facility] [id number] [address] [place] [phone] Sep, Major depression F32.9 [place] [address] [facility] [id number] [address] [place] [address] Sep, Moderate episode of recurren t major depressive disorder F33.[address] [place] [id number] [place] [address] [id number] Sep, Muscle strain T14.8 [facility] [address] [facility] [id number] [address] [place] [phone] Aug, Major depression F32.9 [facility] [address] [facility] [id number] [address] [place] [phone] Aug, Major depression F32.9 [facility] [address] [facility] [id number] [address] [place] [address] Jul, Morbid obesity E66.01 and Ma cora depression F32.9 [facility] [address] [facility] [id number] [address] [place] [phone] Jul, Depression, major, recurrent , moderate F33.1 [facility] [address] [facility] [facility] [address] [id number], [place] [id number] Jul, [facility] [address] [facility] [id number] [address] [place] [phone] Jul, [facility] [address] [facility] [id number] [address] [place] [address] Jul, Major depression F32.9 and M orbid obesity E66.01 [facility] [id number] [place] [address] [id number] Jul, Type II diabetes mellitus E11.9 ; Callus of foot L84 ; Benign essential hypertension I10 and Renal insufficiency N28.9 [facility] [address] [facility] [id number] [address] [place] [phone] Jul, Depression, major, recurrent , moderate F33.1 [facility] [address] [facility] [id number] [address] [place] [address] Jul, Major depression F32.9 [facility] [address] [facility] [id number] [address] [place] [address] Jul, [facility] [address] [facility] [id number] [address] [place] [address] Jun, Major depression F32.9 [place] [address] [facility] [id number] [address] [place] [phone] Jun, Major depressive disorder, r ecurrent, moderate F33.1 [place] [address] [facility] [id number] [address] [place] [address] Jun, [place] [address] [facility] [id number] [address] [place] [phone] Jun, Major depressive disorder, r ecurrent, moderate F33.1 and Major depression F32.[id number] [place] [address] [id number] Jun, Type II diabetes mellitus E11.9 [place] [address] [facility] [id number] [address] [place] [phone] Jun, Depression, major, recurrent , moderate F33.1 [place] [address] [facility] [id number] [address] [place] [address] May, Major depressive disorder, r ecurrent, moderate F33.1 [place] [address] [facility] [id number] [address] [place] [id number] May, [id number] [place] [id number] May, Edema R60.9 [place] [address] [address] [place] [id number] [address] [place] [id number] 17 May, 2015 Insomnia G47.00 and Major de pression F32.[address] [id number] [place] [id number] 15 May, 2015 Morbid obesity E66.01 ; Edema R60.9 ; Sh ortness of breath R06.02 ; Benign essential hypertension I10 and Renal insufficiency N28.[address] [id number] [place] [id number] 14 May, 2015 Hyperlipemia 272.4 and Renal insufficien cy N28.9 [place] [address] [address] [place] [id number] [address] [place] [id number] Apr, Major depression F32.9 [facility] [address] [facility] [id number] [address] [place] [phone] Apr, [place] [address] [address] [facility] [id number] [address] [place] [id number] Apr, Major depressive disorder, r ecurrent, moderate F33.[address] [place] [address] [id number] [id number] Apr, Type II diabetes mellitus E11.9 ; Benign essential hypertension I10 ; Edema R60.9 and Renal insufficiency N28.9 [place] [address] [address] [facility] [id number] [address] [place] [phone] Mar, Major depressive disorder, r ecurrent, moderate F33.1 [place] [address] [address] [place] [id number] [address] [place] [phone] Mar, [place] [address] [address] [facility] [id number] [address] [place] [phone] Mar, Major depression F32.[address] [id number] [place] [address] [id number] Mar, Morbid obesity E66.01 ; Benign essential hypertension I10 and Type II diabetes mellitus E11.9 [place] [address] [address] [facility] [id number] [address] [place] [address] Feb, Major depressive disorder, r ecurrent, moderate F33.1 [place] [address] [address] [facility] [id number] [address] [place] [address] Feb, Major depressive disorder, r ecurrent episode, in partial or unspecified remission 296.35 ; Anxiety state, unspecified 300.00 and Morbid obesity 278.01 [place] [address] [address] [facility] [id number] [address] [place] [id number] Feb, [facility] [address] [id number] [id number] Feb, Vomiting 787.03 and Viral syndrome 079.9 9 [facility] [address] [facility] [id number] [address] [place] [address] 15 Feb, 2015 Major depression, recurrent 296.30 ; Generalized anxiety disorder 300.02 and No condition on [place] II V71.09 [facility] [address] [place] [address] AVE [id number][place] [id number] 03 Feb, 2015 Skin tag 701.9 [facility] [address] [place] [id number] [address] [place] [address] Feb, [facility] [address] [facility] [id number] [address] [place] [address] Jan, Depression, major, recurrent , moderate 296.[address] [id number][place] [id number] Jan, Nausea and vomiting 787.01 ; Rib pain on right side 786.50 and Fall on or from sidewalk curb E880.1 [facility] [address] [facility] [id number] [address] [place] [address] Jan, [facility] [address] [place] [id number] [address] [place] [address] Jan, Major depressive disorder, r ecurrent episode, in partial or unspecified remission 296.35 and Anxiety state, unspecified 300.[address] [id number][place] [id number] Jan, [facility] [address] [facility] [id number] [address] [place] [id number] Jan, Depression, major, recurrent , moderate 296.32 [facility] [address] [facility] [id number] [address] [place] [address] Jan, Major depression, recurrent 296.30 ; No condition on [place] II V71.09 and No condition on axis III V71.[address] [id number][place] [id number] Jan, Drug-induced nausea and vomiting 787.01 [place] [id number] [address] [place] [address] Jan, Depression, major, recurrent , moderate 296.[address] [address] Dec, Depression, major, recurrent , moderate 296.[address] [id number] [place] [address] [id number] Dec, Morbid obesity 278.01 ; Metabolic syndro me 277.7 ; Hyperlipemia 272.4 ; Benign essential hypertension 401.1 ; Dietary counseling V65.3 ; Exercise counseling V65.41 and Inflamed skin tag 701.[address] [address] Dec, Depression, major, recurrent , moderate 296.[address] [address] Dec, [address] [address] Dec, Major depression, recurrent 296.30 ; Anxiety, generalized 300.02 and No condition on [place] II V71.[address] [address] Dec, Depression, major, recurrent , moderate 296.[address] [address] Dec, Major depressive disorder, r ecurrent episode, moderate 296.[address] [address] Dec, Depression, major, recurrent , moderate 296.[address] [address] Dec, Depression, major, recurrent , moderate 296.[address] [address] Dec, Depression, major, recurrent , moderate 296.32 [facility] [address] [place] [id number] [address] [place] [address] Dec, Depression, major, recurrent , moderate 296.32 [facility] [address] [place] [id number] [address] [place] [address] Nov, Depression, major, recurrent , moderate 296.32 [facility] [address] [address] Nov, Major depression 296.20 ; So cial phobia 300.23 and No condition on [place] II V71.09 [facility] [address] [address] Nov, Depression, major, recurrent , moderate 296.32 [place] [address] [address] Nov, Major depressive disorder, r ecurrent episode, moderate 296.32 and Generalized anxiety disorder 300.02 [facility] [address] [address] Nov, Depression, major, recurrent , moderate 296.32 [facility] [address] [address] Nov, Depression, major, recurrent , moderate 296.32 [facility] [address] [address] October, Generalized anxiety disorder 300.02 ; No condition on [place] II V71.09 and Major depressive disorder, recurrent 296.30 [facility] [address] [address] Sep, [facility] [address] [address] Sep, [facility] [address] [place] [id number] [address] [place] [address] Aug, [facility] [address] [address] 24 Aug, 2014 [facility] [address] [id number] [facility] [place] [address] 23 Aug, 2014 [facility] [address] [id number] [facility] [place] [address] 23 Aug, 2014 [facility] [address] [id number] [facility] [place] [address] 20 Aug, 2014 [facility] [address] [id number] [address] [place] [address], [place] [address] 20 Aug, 2014 [facility] [address] [id number] [address] [place] [address], [place] [address] 20 Aug, 2014 [facility] [address] [id number] [address] [place] [address], [place] [address] 20 Aug, 2014 [facility] [address] [id number] [address] [place] [address], [place] [address] 13 Aug, 2014 [facility] [address] [id number] [address] [place] [address], [place] [address] 13 Aug, 2014 [facility] [address] [id number] [address] [place] [address], [place] [address] 13 Aug, 2014 [facility] [address] [id number] [address] [place] [address], [place] [address] 13 Aug, 2014 [facility] [address] [id number] [address] [place] [address], [place] [address] 12 Aug, 2014 [facility] [address] [id number] [address] [place] [address], [place] [address] 12 Aug, 2014 [facility] [address] [id number] [address] [place] [address], [place] [address] 10 Aug, 2014 [facility] [address] [id number] [address] [place] [address], [place] [address] 10 Aug, 2014 [facility] [address] [id number] [address] [place] [address], [place] [address] 09 Aug, 2014 [facility] [address] [id number] [address] [place] [address], [place] [address] Aug, [facility] [address] [id number] [address] [place] [address], [place] [address] Jul, [facility] [address] [id number] [address] [place] [address], [place] [address] Jul, [facility] [address] [id number] [address] [place] [address], [place] [address] Jul, 2014 [facility] [address] [id number] [address] [place] [address], [place] [address] Jul, [facility] [address] [id number] [address] [place] [address], [place] [address] Jul, [facility] [address] [id number] [address] [place] [address], [place] [address] Jul, [facility] [address] [id number] [address] [place] [address], [place] [address] Jun, [facility] [address] [id number] [address] [place] [address], [place] [address] Jun, [facility] [address] [id number] [address] [place] [address], [place] [address] Jun, [facility] [address] [id number] [address] [place] [address], [place] [address] Jun, [facility] [address] [id number] [address] [place] [address], [place] [address] Jun, [facility] [address] [id number] [address] [place] [address], [place] [address] Jun, [facility] [address] [id number] [address] [place] [address], [place] [address] Jun, [facility] [address] [id number] [address] [place] [address], [place] [address] Jun, [facility] [address] [id number] [address] [place] [address], [place] [address] Jun, [facility] [address] [id number] [address] [place] [address], [place] [address] Jun, [facility] [address] [id number] [address] [place] [address], [place] [address] Jun, [facility] [address] [id number] [address] [place] [address], [place] [address] Jun, [facility] [address] [id number] [place] [id number] Jun, [facility] [address] [id number] [address] [place] [address], [place] [address] Jun, [facility] [address] [id number] [address] [place] [address], [place] [address] Jun, [facility] [address] [id number] [address] [place] [address], [place] [address] Jun, [facility] [address] [id number] [address] [place] [address], [place] [address] May, [facility] [address] [id number] [address] [place] [address], [place] [address] May, [facility] [address] [id number] [address] [place] [address], [place] [address] May, [facility] [address] [id number] [address] [place] [address], [place] [address] May, [facility] [address] [id number] [address] [place] [address], [place] [address] Apr, [facility] [address] [id number] [address] [place] [address], [place] [address] Apr, [facility] [address] [id number] [address] [place] [address], [place] [address] Apr, [facility] [address] [id number] [address] [place] [address], [place] [address] Apr, [facility] [address] [id number] [address] [place] [address] Apr, [facility] [address] [id number] [address] [place] [address], [place] [address] Apr, [facility] [address] [id number] [address] [place] [address], [place] [address] Apr, [facility] [address] [id number] [address] [place] [address], [place] [address] Apr, [facility] [address] [id number] [address] [place] [address], [place] [address] Apr, [facility] [address] [id number] [address] [place] [address], [place] [address] Apr, [facility] [address] [id number] [address] [place] [address], [place] [address] Apr, [facility] [address] [id number] [address] [place] [address], [place] [address] Apr, [facility] [address] [id number] [address] [place] [address], [place] [address] Apr, [facility] [address] [id number] [address] [place] [address], [place] [address] Apr, [facility] [address] [id number] [address] [place] [address], [place] [address] Apr, [facility] [address] [id number] [address] [place] [address] Apr, [facility] [address] [id number] [address] [place] [address] Apr, [facility] [address] [id number] [address] [place] [address] Apr, [facility] [address] [id number] [address] [place] [address], [place] [address] Apr, [facility] [address] [id number] [address] [place] [address], [place] [address] Apr, [facility] [address] [id number] [address] [place] [address], [place] [address] 08 Mar, 2014 [facility] [address] [id number] [address] [place] [address], [place] [address] Mar, [facility] [address] [id number] [address] [place] [address], [place] [address] Mar, [facility] [address] [id number] [address] [place] [address], [place] [address] Mar, [facility] [address] [id number] [address] [place] [address], [place] [address] Mar, [facility] [address] [id number] [address] [place] [address], [place] [address] Mar, [facility] [address] [id number] [address] [place] [address], [place] [address] Mar, [facility] [address] [id number] [address] [place] [address], [place] [address] Mar, [facility] [address] [id number] [address] [place] [address], [place] [address] Mar, [facility] [address] [id number] [address] [place] [address], [place] [address] Mar, [facility] [address] [id number] [address] [place] [address], [place] [address] Feb, [facility] [address] [id number] [address] [place] [address], [place] [address] Feb, [facility] [address] [id number] [address] [place] [address], [place] [address] Feb, [facility] [address] [id number] [address] [place] [address], [place] [address] Feb, [facility] [address] [id number] [address] [place] [address], [place] [address] Jan, [facility] [address] [id number] [address] [place] [address], [place] [address] Jan, [facility] [address] [id number] [facility] [place] [address] Jan, [facility] [address] [id number] [address] [place] [address], [place] [address] Jan, [facility] [address] [id number] [address] [place] [address], [place] [address] Jan, [facility] [address] [id number] [address] [place] [address], [place] [address] Jan, [facility] [address] [id number] [address] [place] [address], [place] [address] Dec, [facility] [address] [id number] [address] [place] [address], [place] [address] Dec, [facility] [address] [id number] [address] [place] [address], [place] [address] Nov, [facility] [address] [id number] [address] [place] [address], [place] [address] Nov, [facility] [address] [id number] [address] [place] [address], [place] [address] Nov, [facility] [address] [id number] [address] [place] [address], [place] [address] Nov, [facility] [address] [id number] [address] [place] [address], [place] [address] Nov, [facility] [address] [id number] [address] [place] [address], [place] [address] Nov, [facility] [address] [id number] [address] [place] [address], [place] [address] Sep, [facility] [address] [id number] [address] [place] [address], [place] [address] Sep, [facility] [address] [id number] [address] [place] [address], [place] [address] Sep, [facility] [address] [id number] [address] [place] [address], [place] [address] Sep, [facility] [address] [id number] [address] [place] [address], [place] [address] Aug, [facility] [address] [id number] [address] [place] [address], [place] [address] Aug, [facility] [address] [id number] [address] [place] [address], [place] [address] Jul, [facility] [address] [id number] [address] [place] [address], [place] [address] Jul, [facility] [address] [id number] [address] [place] [address], [place] [address] Jun, [facility] [address] [id number] [address] [place] [address], [place] [address] Jun, [facility] [address] [id number] [address] [place] [address], [place] [address] Jun, [facility] [address] [id number] [address] [place] [address], [place] [address] Jun, [facility] [address] [id number] [address] [place] [address], [place] [address] May, [facility] [address] [id number] [address] [place] [address], [place] [address] 24 May, 2013 [facility] [address] [id number] [address] [place] [address], [place] [address] May, [facility] [address] [id number] [address] [place] [address], [place] [address] May, [facility] [address] [id number] [address] [place] [address], [place] [address] May, [facility] [address] [id number] [address] [place] [address], [place] [address] May, [facility] [address] [id number] [address] [place] [address], [place] [address] Apr, [facility] [address] [id number] [address] [place] [address], [place] [address] Apr, [facility] [address] [id number] [address] [place] [address], [place] [address] Apr, [facility] [address] [id number] [address] [place] [address], [place] [address] Apr, [facility] [address] [id number] [address] [place] [address], [place] [address] Mar, [facility] [address] [id number] [address] [place] [address], [place] [address] Mar, [facility] [address] [id number] [address] [place] [address], [place] [address] Mar, [facility] [address] [id number] [address] [place] [address], [place] [address] Mar, [facility] [address] [id number] [address] [place] [address], [place] [address] Feb, [facility] [address] [id number] [place] [id number] Jan, [facility] [address] [id number] [address] [place] [address], [place] [address] Jan, [facility] [address] [id number] [address] [place] [address], [place] [address] Dec, [facility] [address] [id number] [address] [place] [address], [place] [address] Dec, [facility] [address] [id number] [address] [place] [address], [place] [address] Dec, [facility] [address] [id number] [place] [id number] Dec, [facility] [address] [id number] [address] [place] [address], [place] [address] Nov, [facility] [address] [id number] [address] [place] [address], [place] [phone] 14 Nov, 2012 [facility] [address] [id number] [address] [place] [phone] Nov, [facility] [address] [id number] [address] [place] [id number] Nov, [facility] [address] [id number] [address] [place] [phone] Nov, [facility] [address] [id number] [address] [place] [id number] October, [facility] [address] [id number] [address] [place] [id number] October, [facility] [address] [id number] [address] [place] [phone] Aug, [facility] [address] [facility] [id number] [address] [place] [phone] Nov, IMMUNIZATIONS No Known Immunizations SOCIAL HISTORY Never Assessed REASON FOR VISIT f/u PLAN OF CARE Activity Details Follow Up 4 Weeks Reason:depression VITAL SIGNS MEDICATIONS Unknown Medications RESULTS No Results PROCEDURES Procedure Date Ordered Result Body Site Psychotherapy, patient &/family, 60 minutes, established patient Apr 26, 2017 INSTRUCTIONS MEDICATIONS ADMINISTERED No Known Medications [...] Hospitalization History gastric sleeve Hospitalization History [facility] Trouble with left shoulder blade 08/2017
--- OUTSIDE RECORDS SUMMARY | 2019-11-29 09:35 | XMS REPORT ---
Author Author Curt REBOLLAR [facility] eClinicalWorks Address Unknown Phone Unavailable Care Team Providers Care Serology Teacher Name Role Phone QUINTIN REBOLLAR CP Unavailable Allergies No Known Allergies Problems Problem Type Condition Code Onset Dates Condition Statu s Assessment Major depression F32.9 Active Problem Major depression F32.9 Active Problem [...] patient &/family, 30 minutes, established patient CPT-4 [id number] October 12, 2015 Results No Known Results Summary Purpose eClinicalWorks Submission
--- OUTSIDE RECORDS SUMMARY | 2019-11-29 09:35 | XMS REPORT ---
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 Name Role Phone HERMELINDO JUDD Unavailable PROBLEMS Type Condition ICD9-CM Code OPG55-LV Code Onset Dates Condition S tatus SNOMED Code Problem Renal insufficiency N28.9 Active 674094047 Problem Callus of foot L84 Active 50258 1005 Problem Edema R60.9 Active 539646181 Problem Vitamin D deficiency E55.9 Active 28805378 Problem Anxiety F41.9 Active 31435471 Problem Acute bacterial conjunctivitis of left eye H10.32 Active 376645835 Problem Recurrent major depressive disorder, in partial remission F33.41 Active 41357902 Problem Severe episode of recurrent major depressive disorder, without psychotic features F33.2 Active 67156343 Problem Metabolic syndrome E88.81 Active 2 18753407 Problem Hyperlipemia E78.5 Active 8201509 4 Problem Type II diabetes mellitus E11.9 Acti ve 52376350 Problem Insomnia G47.00 Active 635509477 Problem Morbid obesity E66.01 Active 91928 6002 Problem Major depression F32.9 Active 370 488044 Problem Benign essential hypertension I10 Active 4065477 ALLERGIES Substance Reaction Event Type Date Status Egg White throat swells Non Drug Allergy Nov, Active Cows Milk throat swells Non Drug Allergy Nov, Active Wheat throat swells Non Drug Allergy Nov, Active Peanuts throat swells Non Drug Allergy Nov, Active Tenerius Mondovi throat swells Non Drug Allergy Nov, Active Parke throat swells Non Drug Allergy Nov, Active Ragweed throat swells Non Drug Allergy Nov, Active ENCOUNTERS Encounter Location Date Diagnosis [facility] [address] [facility] [id number] [place] [id number] Sep, [facility] [address] [id number][place] [id number] Sep, [facility] [address] [id number], [place] [id number] Aug, Irritable mood R45.4 [place] [address] [facility] [id number] [address] [place] [phone] Aug, [id number] [place] [address] [id number] Jul, Benign essential hypertension I10 ; Robert a R60.9 and Impacted cerumen of left ear H61.22 [place] [address] [facility] [id number] [address] [place] [phone] 14 Jul, 2017 Major depression F32.9 ; Rec urrent major depressive disorder, in partial remission F33.41 and Anxiety F41.9 [place] [address] [facility] [id number] [address] [place] [phone] Jun, Major depression F32.9 ; Rec urrent major depressive disorder, in partial remission F33.41 and Anxiety F41.[address] [place] [address] [id number][place] [id number] Jun, Major depression F32.9 ; Morbid obesity E66.01 ; Irritable mood R45.4 ; Hand weakness R29.898 and Vitamin D deficiency E55.9 [facility] [address] [id number], [place] [id number] Jun, [facility] [address] [id number][place] [id number] May, Major depression F32.9 [place] [address] [facility] [id number] [address] [place] [phone] May, Major depression F32.9 [facility] [address] [id number], [place] [id number] May, BMI 50.0-59.9, adult Z68.43 ; Major depr ession F32.9 ; Anxiety F41.9 ; Hypertrophic toenail L60.2 and Pain of left great toe M79.675 [facility] [address] [id number], [place] [id number] May, Recurrent major depressive disorder, in partial remission F33.41 [facility] [address] [facility] [id number] [address] [place] [phone] Apr, [facility] [address] [id number][place] [id number] Apr, [facility] [address] [facility] [id number] [address] [place] [phone] Apr, Major depression F32.[address] [place] [id number] [place] [address] [id number] Apr, Severe episode of recurrent major depres sive disorder, without psychotic features F33.2 ; Anxiety F41.9 and Insomnia G47.00 [facility] [id number] [place] [address] [id number] Apr, [facility] [address] [facility] [id number] [address] [place] [phone] Apr, [facility] [id number] [place] [address] [id number] Apr, [facility] [address] [id number], [place] [id number] Mar, [facility] [id number] [place] [address] [id number] Mar, Allergic conjunctivitis of both eyes H10 .13 [facility] [address] [facility] [id number] [address] [place] [address] Mar, Major depression F32.9 [facility] [address] [id number], [place] [id number] Mar, Metabolic syndrome E88.81 ; History of g astric bypass Z98.890 ; Benign essential hypertension I10 and Allergic conjunctivitis of both eyes H10.13 [facility] [address] [facility] [id number] [address] [place] [phone] Mar, Major depression F32.9 [facility] [address] [id number], [place] [id number] Feb, [facility] [address] [facility] [id number] [address] [place] [phone] Feb, Major depression F32.9 [facility] [id number] [place] [address] [id number] Feb, Subacute maxillary sinusitis J01.00 and Bronchitis J40 [place] [address] [facility] [id number] [address] [place] [phone] Feb, Major depressive disorder, r ecurrent, moderate F33.1 [facility] [address] [facility] [id number] [place] [address] [id number] Jan, [facility] [id number] [place] [address] [id number] Jan, Acute non-recurrent maxillary sinusitis J01.00 and Skin tag L91.8 [facility] [address] [facility] [address] [id number] [place] [address] [id number] Jan, Cough R05 and Sinus congestion R09.81 [facility] [address] [facility] [address] [id number], [place] [id number] Jan, [facility] [address] [place] [address] AVE [id number] [place] [address] [id number] Jan, Benign essential hypertension I10 ; Hist ory of gastric bypass Z98.890 and Nausea and vomiting in adult R11.2 [facility] [address] [facility] [id number] [address] [place] [phone] Jan, Major depressive disorder, r ecurrent, moderate F33.1 [facility] [address] [facility] [id number] [address] [place] [phone] Dec, Insomnia G47.00 ; Recurrent major depressive disorder, in partial remission F33.41 and Morbid obesity E66.01 [facility] [id number], [place] [id number] Dec, [facility] [id number], [place] [id number] Dec, Chronic bacterial conjunctivitis of left eye H10.[address] [id number], [place] [id number] Nov, [address] [id number], [place] [id number] Nov, Dental examination Z01.[address] [id number], [place] [id number] Nov, Benign essential hypertension I10 ; Hist ory of gastric bypass Z98.890 and Nausea and vomiting in adult R11.2 [place] [address] [place] [id number] [address] [place] [phone] Nov, Major depressive disorder, r ecurrent, moderate F33.1 ; Generalized anxiety disorder F41.1 and Insomnia due to other mental disorder F51.05 [place] [address] [place] [id number] [address] [place] [phone] Nov, Recurrent major depressive d isorder, in partial remission F33.41 ; Insomnia G47.00 and Morbid obesity E66.01 [facility] [address] [facility] [id number] [place] [id number] October, Abscess of left arm L02.414 [place] [address] [place] [id number] [address] [place] [phone] October, Morbid obesity E66.01 ; Lida r depression F32.9 and Recurrent major depressive disorder, in partial remission F33.[address] [id number], [place] [id number] Sep, Benign essential hypertension I10 ; Morb id obesity E66.01 ; S/P gastric bypass Z98.84 ; Abscess L02.91 and Chronic bacterial conjunctivitis of left eye H10.[address] [facility] [address] [id number], [place] [id number] Sep, Dental examination Z01.20 [place] [address] [place] [id number] [address] [place] [address] Sep, Morbid obesity E66.01 ; Lida r depression F32.9 and Recurrent major depressive disorder, in partial remission F33.41 [place] [address] [phone] Jul, [place] [address] [address] Jul, Major depressive disorder, r ecurrent, moderate F33.1 [place] [address] [place] [id number] [address] [place] [phone] Jul, Major depressive disorder, r ecurrent, moderate F33.1 and Generalized anxiety disorder F41.[address] [place] [id number] [place] [address] [id number] Jul, Cough R05 [place] [address] [place] [id number] [address] [place] [address] Jul, Morbid obesity E66.01 ; Lida r depression F32.9 and Recurrent major depressive disorder, in partial remission F33.41 [facility] [address] [id number], [place] [id number] Jul, [facility] [address] [id number], [place] [id number] Jul, [place] [address] [id number], [place] [id number] Jul, Gastroenteritis K52.9 and Cough R05 [facility] [address] [id number], [place] [id number] Jun, Acute bacterial conjunctivitis of left e ye H10.32 [place] [address] [place] [id number] [address] [place] [phone] Jun, [place] [address] [facility] [id number] [address] [place] [phone] Jun, Recurrent major depressive d isorder, in partial remission F33.41 [facility] [address] [facility] [id number] [address] [place] [phone] May, Major depression F32.9 and M orbid obesity E66.01 [place] [address] [facility] [id number] [address] [place] [address] May, [place] [id number] [place] [address] [id number] May, Thrush B37.0 [place] [address] [facility] [id number] [address] [place] [id number] Apr, Major depressive disorder, r ecurrent, moderate F33.1 [place] [address] [address] Apr, Insomnia G47.00 ; Major depr ession F32.9 and Recurrent major depressive disorder, in partial remission F33.41 [place] [address] [place] [id number] [address] [place] [address] Apr, [place] [address] [place] [id number] [address] [place] [phone] Apr, Major depression F32.9 and R ecurrent major depressive disorder, in partial remission F33.[address] [place] [id number] [place] [address] [id number] Mar, Benign essential hypertension I10 ; Morb id obesity E66.01 ; Impacted cerumen of both ears H61.23 ; Laceration of finger of right hand, initial encounter S61.219A and Encounter for immunization Z23 [facility] [address] [facility] [id number] [address] [place] [id number] 17 Mar, 2016 [place] [address] [facility] [id number] [address] [place] [phone] 13 Mar, 2016 [place] [address] [facility] [id number] [address] [place] [phone] Mar, [facility] [address] [id number], [place] [id number] Feb, Nausea R11.0 ; Blood in the stool K92.1 and Benign essential hypertension I10 [facility] [address] [facility] [id number] [address] [place] [phone] Feb, Major depression F32.9 and R ecurrent major depressive disorder, in partial remission F33.41 [facility] [address] [id number], [place] [id number] Feb, [facility] [address] [id number], [place] [id number] Feb, Recurrent major depressive disorder, in partial remission F33.41 [facility] [address] [id number], [place] [id number] Jan, [facility] [id number] [place] [address] [id number] Jan, Benign essential hypertension I10 ; Robert a R60.9 and Hyperlipidemia, unspecified hyperlipidemia type E78.5 [facility] [address] [id number], [place] [id number] Jan, Recurrent major depressive disorder, in partial remission F33.41 [facility] [address] [facility] [id number] [place] [id number] Jan, [facility] [address] [id number], [place] [id number] Jan, [facility] [address] [id number], [place] [id number] Jan, [facility] [address] [facility] [id number] [address] [place] [phone] Jan, [facility] [address] [facility] [id number] [address] [place] [phone] Dec, [facility] [address] [facility] [id number] [address] [place] [phone] Nov, [facility] [address] [facility] [id number] [address] [place] [phone] Nov, Major depression F32.9 [facility] [address] [facility] [id number] [address] [place] [phone] Nov, [facility] [address] [facility] [id number] [address] [place] [phone] Nov, [facility] [address] [facility] [id number] [address] [place] [phone] Nov, Major depressive disorder, r ecurrent episode, mild F33.0 and Anxiety F41.9 [facility] [id number] [place] [address] [id number] Nov, [place] [id number] [place] [address] [id number] October, Left elbow pain M25.522 and Other season al allergic rhinitis J30.[address] [id number] [place] [address] [id number] October, [place] [address] [place] [id number] [address] [place] [phone] October, Major depressive disorder, r ecurrent, moderate F33.1 [place] [address] [facility] [id number] [address] [place] [phone] October, Major depression F32.9 [facility] [address] [facility] [id number] [address] [place] [phone] Sep, Pioneer or callus L84 and Onych omycosis B35.1 [place] [address] [facility] [id number] [address] [place] [phone] Sep, Major depressive disorder, r ecurrent, moderate F33.1 [facility] [address] [facility] [id number] [address] [place] [phone] Sep, Major depression F32.9 [facility] [address] [facility] [id number] [address] [place] [phone] Sep, Moderate episode of recurren t major depressive disorder F33.[address] [id number], [place] [id number] Sep, Muscle strain T14.8 [facility] [address] [facility] [id number] [address] [place] [phone] Aug, Major depression F32.9 [facility] [address] [facility] [id number] [address] [place] [phone] Aug, Major depression F32.9 [facility] [address] [facility] [id number] [address] [place] [address] Jul, Morbid obesity E66.01 and Ma cora depression F32.9 [facility] [address] [facility] [id number] [address] [place] [phone] Jul, Depression, major, recurrent , moderate F33.[address] [id number], [place] [id number] Jul, [facility] [address] [facility] [id number] [address] [place] [phone] Jul, [facility] [address] [facility] [id number] [address] [place] [phone] Jul, Major depression F32.9 and M orbid obesity E66.[id number] [place] [address] [id number] Jul, Type II diabetes mellitus E11.9 ; Callus of foot L84 ; Benign essential hypertension I10 and Renal insufficiency N28.9 [facility] [address] [facility] [id number] [address] [place] [phone] 09 Jul, 2015 Depression, major, recurrent , moderate F33.1 [facility] [address] [facility] [id number] [address] [place] [phone] Jul, Major depression F32.9 [place] [address] [facility] [id number] [address] [place] [phone] Jul, [facility] [address] [facility] [id number] [address] [place] [phone] Jun, Major depression F32.9 [place] [address] [facility] [id number] [address] [place] [phone] Jun, Major depressive disorder, r ecurrent, moderate F33.1 [place] [address] [facility] [id number] [address] [place] [phone] Jun, [place] [address] [facility] [id number] [place] [address] Jun, Major depressive disorder, r ecurrent, moderate F33.1 and Major depression F32.[address] [place] [id number] [place] [address] [id number] Jun, Type II diabetes mellitus E11.9 [place] [address] [place] [id number] [address] [place] [phone] Jun, Depression, major, recurrent , moderate F33.1 [place] [address] [facility] [id number] [address] [place] [address] May, Major depressive disorder, r ecurrent, moderate F33.1 [place] [address] [facility] [id number] [address] [place] [address] May, [facility] [id number] [place] [address] [id number] May, Edema R60.9 [place] [address] [facility] [id number] [address] [place] [id number] 17 May, 2015 Insomnia G47.00 and Major de pression F32.9 [facility] [address] [id number], [place] [id number] 15 May, 2015 Morbid obesity E66.01 ; Edema R60.9 ; Sh ortness of breath R06.02 ; Benign essential hypertension I10 and Renal insufficiency N28.9 [facility] [address] [facility] [address] [id number], [place] [id number] May, Hyperlipemia 272.4 and Renal insufficien cy N28.9 [facility] [address] [facility] [id number] [address] [place] [id number] Apr, Major depression F32.9 [place] [address] [place] [id number] [address] [place] [phone] Apr, [place] [address] [facility] [id number] [address] [place] [phone] Apr, Major depressive disorder, r ecurrent, moderate F33.1 [facility] [address] [place] [address] A[id number] [place] [address] [id number] Apr, Type II diabetes mellitus E11.9 ; Benign essential hypertension I10 ; Edema R60.9 and Renal insufficiency N28.9 [place] [address] [facility] [id number] [address] [place] [phone] Mar, Major depressive disorder, r ecurrent, moderate F33.1 [place] [address] [facility] [id number] [address] [place] [phone] Mar, [place] [address] [facility] [id number] [address] [place] [phone] Mar, Major depression F32.[address] [id number] [place] [address] [id number] Mar, Morbid obesity E66.01 ; Benign essential hypertension I10 and Type II diabetes mellitus E11.9 [place] [address] [facility] [id number] [address] [place] [phone] Feb, Major depressive disorder, r ecurrent, moderate F33.1 [place] [address] [facility] [id number] [address] [place] [phone] Feb, Major depressive disorder, r ecurrent episode, in partial or unspecified remission 296.35 ; Anxiety state, unspecified 300.00 and Morbid obesity 278.01 [facility] [address] [facility] [id number] [address] [place] [address] Feb, [facility] [address] [facility] [address] [id number], [place] [id number] Feb, Vomiting 787.03 and Viral syndrome 079.9 [address] [place] [address] [place] [id number] [address] [place] [phone] Feb, Major depression, recurrent 296.30 ; Generalized anxiety disorder 300.02 and No condition on [place] II V71.09 [facility] [address] [place] [address] A[id number] [place] [address] [id number] Feb, Skin tag 701.9 [place] [address] [place] [id number] [address] [place] [phone] Feb, [place] [address] [place] [id number] [address] [place] [address] Jan, Depression, major, recurrent , moderate 296.[id number] [place] [address] [id number] Jan, Nausea and vomiting 787.01 ; Rib pain on right side 786.50 and Fall on or from sidewalk curb E880.1 [place] [address] [address] [facility] [id number] [address] [place] [id number] Jan, [facility] [address] [place] [id number] [address] [place] [phone] Jan, Major depressive disorder, r ecurrent episode, in partial or unspecified remission 296.35 and Anxiety state, unspecified 300.00 [facility] [address] [place] [address] [id number] [place] [address] [id number] Jan, [facility] [address] [place] [id number] [address] [place] [phone] Jan, Depression, major, recurrent , moderate 296.32 [place] [address] [address] [place] [id number] [address] [place] [phone] Jan, Major depression, recurrent 296.30 ; No condition on [place] II V71.09 and No condition on axis III V71.09 [facility] [address] [id number] [id number] Jan, Drug-induced nausea and vomiting 787.01 [facility] [address] [place] [id number] [place] [id number] Jan, Depression, major, recurrent , moderate 296.32 [place] [id number] [address] [place] [id number] Dec, Depression, major, recurrent , moderate 296.32 [facility] [place] [address] [id number] [id number] Dec, Morbid obesity 278.01 ; Metabolic syndro me 277.7 ; Hyperlipemia 272.4 ; Benign essential hypertension 401.1 ; Dietary counseling V65.3 ; Exercise counseling V65.41 and Inflamed skin tag 701.9 [place] [id number] [address] [place] [phone] Dec, Depression, major, recurrent , moderate 296.32 [place] [id number] [address] [place] [id number] Dec, [place] [id number] [address] [place] [phone] Dec, Major depression, recurrent 296.30 ; Anxiety, generalized 300.02 and No condition on [place] II V71.[address] [id number] [address] [place] [address] Dec, Depression, major, recurrent , moderate 296.32 [place] [id number] [address] [place] [address] Dec, Major depressive disorder, r ecurrent episode, moderate 296.32 [place] [id number] [address] [place] [address] Dec, Depression, major, recurrent , moderate 296.32 [place] [address] [place] [id number] [address] [place] [address] Dec, Depression, major, recurrent , moderate 296.32 [place] [address] [place] [id number] [address] [place] [address] Dec, Depression, major, recurrent , moderate 296.32 [place] [address] [place] [id number] [place] [address] Dec, Depression, major, recurrent , moderate 296.32 [place] [address] [place] [id number] [place] [address] Nov, Depression, major, recurrent , moderate 296.32 [place] [address] [address] Nov, Major depression 296.20 ; So cial phobia 300.23 and No condition on [place] II V71.09 [place] [address] [address] Nov, Depression, major, recurrent , moderate 296.32 [place] [address] [address] Nov, Major depressive disorder, r ecurrent episode, moderate 296.32 and Generalized anxiety disorder 300.02 [place] [address] [place] [id number] [address] [place] [address] Nov, Depression, major, recurrent , moderate 296.32 [place] [address] [address] Nov, Depression, major, recurrent , moderate 296.32 [place] [address] [address] October, Generalized anxiety disorder 300.02 ; No condition on [place] II V71.09 and Major depressive disorder, recurrent 296.30 [place] [address] [place] [id number] [address] [place] [address] Sep, [facility] [address] [id number] [facility] [place] [address] 13 Sep, 2014 [facility] [address] [id number] [address] [place] [address], [place] [address] 24 Aug, 2014 [facility] [address] [id number] [address] [place] [address], [place] [address] 24 Aug, 2014 [facility] [address] [id number] [address] [place] [address], [place] [address] 23 Aug, 2014 [facility] [address] [id number] [address] [place] [address], [place] [address] 23 Aug, 2014 [facility] [address] [id number] [address] [place] [address], [place] [address] 20 Aug, 2014 [facility] [address] [id number] [address] [place] [address], [place] [address] 20 Aug, 2014 [facility] [address] [id number] [address] [place] [address], [place] [address] 20 Aug, 2014 [facility] [address] [id number] [address] [place] [address], [place] [address] 20 Aug, 2014 [facility] [address] [id number] [address] [place] [address], [place] [address] 13 Aug, 2014 [facility] [address] [id number] [address] [place] [address], [place] [address] 13 Aug, 2014 [facility] [address] [id number] [address] [place] [address], [place] [address] 13 Aug, 2014 [facility] [address] [id number] [address] [place] [address], [place] [address] 13 Aug, 2014 [facility] [address] [id number] [address] [place] [address], [place] [address] 12 Aug, 2014 [facility] [address] [id number] [address] [place] [address], [place] [address] 12 Aug, 2014 [facility] [address] [id number] [address] [place] [address], [place] [address] Aug, [facility] [address] [id number] [address] [place] [address], [place] [address] Aug, [facility] [address] [id number] [address] [place] [address], [place] [address] Aug, [facility] [address] [id number] [address] [place] [address], [place] [address] Aug, [facility] [address] [id number] [address] [place] [address], [place] [address] Jul, [facility] [address] [id number] [address] [place] [address], [place] [address] Jul, [facility] [address] [id number] [address] [place] [address], [place] [address] Jul, [facility] [address] [id number] [address] [place] [address], [place] [address] Jul, [facility] [address] [id number] [address] [place] [address], [place] [address] Jul, [facility] [address] [id number] [address] [place] [address], [place] [address] Jul, [facility] [address] [id number] [address] [place] [address], [place] [address] Jun, [facility] [address] [id number] [address] [place] [address], [place] [address] Jun, [facility] [address] [id number] [address] [place] [address] Jun, [facility] [address] [id number] [address] [place] [address], [place] [address] Jun, [facility] [address] [id number] [address] [place] [address], [place] [address] Jun, [facility] [address] [id number] [address] [place] [address], [place] [address] Jun, [facility] [address] [id number] [address] [place] [address], [place] [address] Jun, [facility] [address] [id number] [address] [place] [address], [place] [address] Jun, [facility] [address] [id number] [address] [place] [address], [place] [address] Jun, [facility] [address] [id number] [address] [place] [address], [place] [address] Jun, [facility] [address] [id number] [address] [place] [address], [place] [address] Jun, [facility] [address] [id number] [address] [place] [address], [place] [address] Jun, [facility] [address] [id number] [id number] Jun, [facility] [address] [id number] [address] [place] [address], [place] [address] Jun, [facility] [address] [id number] [address] [place] [address], [place] [address] Jun, [facility] [address] [id number] [address] [place] [address], [place] [address] Jun, [facility] [address] [id number] [address] [place] [address], [place] [address] May, [facility] [address] [id number] [address] [place] [address], [place] [address] May, [facility] [address] [id number] [address] [place] [address], [place] [address] May, [facility] [address] [id number] [address] [place] [address], [place] [address] May, [facility] [address] [id number] [address] [place] [address], [place] [address] Apr, [facility] [address] [id number] [address] [place] [address], [place] [address] Apr, [facility] [address] [id number] [address] [place] [address], [place] [address] 17 Apr, 2014 [facility] [address] [id number] [address] [place] [address], [place] [address] Apr, [facility] [address] [id number] [address] [place] [address], [place] [address] Apr, [facility] [address] [id number] [address] [place] [address], [place] [address] Apr, [facility] [address] [id number] [address] [place] [address], [place] [address] Apr, [facility] [address] [id number] [address] [place] [address], [place] [address] Apr, [facility] [address] [id number] [address] [place] [address], [place] [address] Apr, [facility] [address] [id number] [address] [place] [address], [place] [address] Apr, [facility] [address] [id number] [address] [place] [address], [place] [address] Apr, [facility] [address] [id number] [address] [place] [address], [place] [address] Apr, [facility] [address] [id number] [address] [place] [address], [place] [address] Apr, [facility] [address] [id number] [address] [place] [address], [place] [address] Apr, [facility] [address] [id number] [address] [place] [address], [place] [address] Apr, [facility] [address] [id number] [address] [place] [address], [place] [address] Apr, [facility] [address] [id number] [address] [place] [address], [place] [address] Apr, [facility] [address] [id number] [address] [place] [address], [place] [address] Apr, [facility] [address] [id number] [address] [place] [address], [place] [address] Apr, [facility] [address] [id number] [address] [place] [address], [place] [address] Apr, [facility] [address] [id number] [address] [place] [address], [place] [address] Mar, [facility] [address] [id number] [address] [place] [address], [place] [address] Mar, [facility] [address] [id number] [address] [place] [address], [place] [address] Mar, [facility] [address] [id number] [address] [place] [address], [place] [address] Mar, [facility] [address] [id number] [address] [place] [address], [place] [address] Mar, [facility] [address] [id number] [address] [place] [address], [place] [address] Mar, [facility] [address] [id number] [address] [place] [address], [place] [address] Mar, [facility] [address] [id number] [address] [place] [address], [place] [address] Mar, [facility] [address] [id number] [address] [place] [address], [place] [address] Mar, [facility] [address] [id number] [address] [place] [address] Mar, [facility] [address] [id number] [address] [place] [address], [place] [address] Feb, [facility] [address] [id number] [address] [place] [address], [place] [address] Feb, [facility] [address] [id number] [address] [place] [address], [place] [address] Feb, [facility] [address] [id number] [address] [place] [address], [place] [address] Feb, [facility] [address] [id number] [address] [place] [address], [place] [address] Jan, [facility] [address] [id number] [address] [place] [address], [place] [address] Jan, [facility] [address] [id number] [address] [place] [address], [place] [address] Jan, [facility] [address] [id number] [address] [place] [address], [place] [address] Jan, [facility] [address] [id number] [address] [place] [address], [place] [address] Jan, [facility] [address] [id number] [address] [place] [address], [place] [address] Jan, [facility] [address] [id number] [address] [place] [address], [place] [address] Dec, [facility] [address] [id number] [address] [place] [address], [place] [address] Dec, [facility] [address] [id number] [address] [place] [address], [place] [address] Nov, [facility] [address] [id number] [address] [place] [address], [place] [address] Nov, [facility] [address] [id number] [address] [place] [address], [place] [address] Nov, [facility] [address] [id number] [address] [place] [address], [place] [address] Nov, [facility] [address] [id number] [address] [place] [address], [place] [address] Nov, [facility] [address] [id number] [address] [place] [address], [place] [address] Nov, [facility] [address] [id number] [address] [place] [address], [place] [address] Sep, [facility] [address] [id number] [address] [place] [address], [place] [address] Sep, [facility] [address] [id number] [address] [place] [address], [place] [address] Sep, [facility] [address] [id number] [address] [place] [address], [place] [address] Sep, [facility] [address] [id number] [address] [place] [address], [place] [address] Aug, [facility] [address] [id number] [address] [place] [address], [place] [address] Aug, [facility] [address] [id number] [address] [place] [address], [place] [address] Jul, [facility] [address] [id number] [address] [place] [address], [place] [address] Jul, [facility] [address] [id number] [address] [place] [address], [place] [address] Jun, [facility] [address] [id number] [address] [place] [address], [place] [address] Jun, [facility] [address] [id number] [address] [place] [address], [place] [address] Jun, [facility] [address] [id number] [address] [place] [address], [place] [address] Jun, [facility] [address] [id number] [address] [place] [address], [place] [address] May, [facility] [address] [id number] [address] [place] [address], [place] [address] May, [facility] [address] [id number] [address] [place] [address], [place] [address] May, [facility] [address] [id number] [address] [place] [address], [place] [address] May, [facility] [address] [id number] [address] [place] [address], [place] [address] May, [facility] [address] [id number] [address] [place] [address], [place] [address] May, [facility] [address] [id number] [address] [place] [address], [place] [address] Apr, [facility] [address] [id number] [address] [place] [address], [place] [address] Apr, [facility] [address] [id number] [address] [place] [address], [place] [address] Apr, [facility] [address] [id number] [address] [place] [address], [place] [address] Apr, [facility] [address] [id number] [address] [place] [address], [place] [address] Mar, [facility] [address] [id number] [address] [place] [address], [place] [address] Mar, [facility] [address] [id number] [address] [place] [address], [place] [address] Mar, [facility] [address] [id number] [address] [place] [address], [place] [address] Mar, [facility] [address] [id number] [address] [place] [address], [place] [address] Feb, [facility] [address] [id number] [place] [id number] Jan, [facility] [address] [id number] [address] [place] [address] Jan, [facility] [address] [id number] [address] [place] [address], [place] [address] Dec, [facility] [address] [id number] [address] [place] [address] Dec, [facility] [address] [id number] [address] [place] [address] Dec, [facility] [id number] [place] [id number] Dec, 2012 [facility] [address] [id number] [address] [place] [id number] 17 Nov, 2012 [facility] [address] [facility] [id number] [address] [place] [id number] Nov, [facility] [address] [id number] [address] [place] [address] Nov, [facility] [address] [id number] [address] [place] [address] Nov, [facility] [address] [id number] [address] [place] [address] Nov, [facility] [address] [facility] [id number] [address] [place] [phone] October, [facility] [address] [facility] [id number] [address] [place] [phone] October, [facility] [address] [id number] [address] [place] [address] Aug, [facility] [address] [facility] [id number] [address] [place] [address] Nov, IMMUNIZATIONS No Known Immunizations SOCIAL HISTORY Never Assessed REASON FOR VISIT restorative PLAN OF CARE Activity Details Follow Up prn Reason:debridement prior to fillings VITAL SIGNS Blood pressure systolic 116 mmHg 2016-12-05 Blood pressure diastolic 73 mmHg 2016-12-05 MEDICATIONS Medication Instructions Dosage Frequency Start Date End Date Duration S noemius Cetirizine HCl 10 mg Orally Once a day 1 tablet 24h Active Lisinopril 40 mg Orally Once a day 1 tablet 24h Active Flovent HFA 110 mcg/actuation 1-3 Puffs 1 time per day 1 October, Active Sulfamethoxazole-Trimethoprim 400-80 MG Orally Once a day 2 tablets 24h Active Ondansetron HCl 4 MG Take 1 Tablet (4 mg ) by mouth every 8 hours as needed for Nausea/Emesis. Active Atenolol 100 mg Orally Once a day 1 tablet 24h Active Centrum - Active Flonase 50 mcg/actuation inhale 1 spray (50 mcg) in each nostril by intranasal route 2 times per day Nov, Active Montelukast Sodium 10 MG TAKE ONE TABLET BY MOUTH DAILY 90 Active Trintellix 20 MG TAKE 1 TABLET BY MOUTH ONCE DAILY Active Omeprazole 40 MG Orally Once a day 1 tablet 24h 0 da ys Active Trazodone HCl 50 mg Orally Once a day 1 tablet at bedtime 24h Nov Active Vitamin D-3 1000 UNIT Orally Once a day 2 capsule 24h Active RESULTS No Results PROCEDURES Procedure Date Ordered Result Body Site RESIN COMPOS - 1 SURFACE POSTERIOR December 05, 2016 RESIN COMPOS - 1 SURFACE POSTERIOR December 05, 2016 INSTRUCTIONS MEDICATIONS ADMINISTERED No Known Medications MEDICAL [...]
--- OUTSIDE RECORDS SUMMARY | 2019-11-29 09:36 | XMS REPORT ---
Author Author Curt REBOLLAR [facility] eClinicalWorks Address Unknown Phone Unavailable Care Team Providers Care Tripe Washer Name Role Phone QUINTIN REBOLLAR CP Unavailable Allergies, Adverse Reactions, Alerts Substance Reaction Event Type Wheat throat swells Non Drug Allergy Egg White throat swells Non Drug Allergy Cows Milk throat swells Non Drug Allergy Peanuts throat swells Non Drug Allergy Tenerius Mona throat swells Non Drug Allergy Doddridge throat swells Non Drug Allergy Ragweed throat [...] unspecified 780.52 Active Assessment No condition on [place] II V71.09 Acti ve Assessment Generalized anxiety disorder 300.02 Active Assessment Major depression, recurrent 296.30 Active Medications No Known Medications Procedures Procedure Coding System Code Date Psychotherapy, patient &/family, 45 minutes, established patient CPT-4 39053 Feb 24, 2015 Results No Known Results Summary Purpose eClinicalWorks Submission
--- OUTSIDE RECORDS SUMMARY | 2019-11-29 09:36 | XMS REPORT ---
Author Author Curt DIAZ [facility] Address [address] [place] [address] Care Team Providers Care Dairy Hand Name Role Phone CHRIS DIAZ Unavailable PROBLEMS Type Condition ICD9-CM Code IIP03-RN Code Onset Dates Condition S tatus SNOMED Code Problem Major depression F32.9 Active 370 706605 Problem Morbid obesity E66.01 Active 05064 6002 Problem Benign essential hypertension I10 Active 8422550 Problem Insomnia G47.00 Active 795626287 Problem Hyperlipemia E78.5 Active 8525644 4 Problem Acute bacterial conjunctivitis of left eye H10.32 Active 663030243 Problem Recurrent major depressive disorder, in partial remission F33.41 Active 28120018 Problem Edema R60.9 Active 298535576 Problem Type II diabetes mellitus E11.9 Acti ve 79547189 Problem Callus of foot L84 Active 65901 1005 Problem Renal insufficiency N28.9 Active 304034132 ALLERGIES Substance Reaction Event Type Date Status Egg White throat swells Non Drug Allergy Jul, Active Cows Milk throat swells Non Drug Allergy Jul, Active Wheat throat swells Non Drug Allergy Jul, Active Peanuts throat swells Non Drug Allergy Jul, Active [place] throat swells Non Drug Allergy Jul, Active [place] throat swells Non Drug Allergy Jul, Active Ragweed throat swells Non Drug Allergy Jul, Active SOCIAL HISTORY No smoking Hx information available PLAN OF CARE Activity Details Follow Up prn Reason: VITAL SIGNS Height 71.5 in 2016-07-18 Weight 399.1 lbs 2016-07-18 Temperature 99.1 degrees Fahrenheit 2016-07-18 Heart Rate 80 bpm 2016-07-18 Respiratory Rate 20 2016-07-18 BMI 54.88 kg/m2 2016-07-18 Blood pressure systolic 150 mmHg 2016-07-18 Blood pressure diastolic 70 mmHg 2016-07-18 MEDICATIONS Medication Instructions Dosage Frequency Start Date End Date Duration S chandni Omeprazole 20 MG 1 Tablet by Oral route 1 time per day Active Cetirizine HCl 10 mg Orally Once a day 1 tablet 24h Active Montelukast Sodium 10 MG TAKE ONE TABLET BY MOUTH DAILY Active Culturelle 10 billion Orally 2 times a day 1 capsule 12h 2016Jul, 07 days Active Atenolol 50 MG Orally Once a day 1 tablet 24h Active Tessalon Perles 100 mg Orally Three times a day 1 capsule as needed 8h Jul, Jul, 07 days Active Flonase 50 mcg/actuation inhale 1 spray (50 mcg) in each nostril by intranasal route 2 times per day Nov, Active Erythromycin 5 MG/GM Ophthalmic Four times a day 1 application 6h Jun, Jul, 07 days Active Lisinopril 40 MG TAKE ONE TABLET BY MOUTH ONCE DAILY. 90 Active Rexulti 1 MG 1 tablet Once a day Orally 30 days 30 Active Trintellix 20 mg Orally Once a day 1 tablet 24h Active Flovent HFA 110 mcg/actuation 1-3 Puffs 1 time per day 1 October, Active RESULTS Name Result Date Reference Range INFLUENZA A & B (IN HOUSE) INFLUENZA A neg INFLUENZA B neg Control pos Lot # Exp date 2016 PROCEDURES Procedure Date Ordered Related Diagnosis Body Site INFLUENZA ASSAY W/OPTIC Jul 18, 2016 Office Visit, Est Pt., Level 3 Jul 18, 2016 IMMUNIZATIONS No Known Immunizations
--- OUTSIDE RECORDS SUMMARY | 2019-11-29 09:36 | XMS REPORT ---
Author Author Curt GARCIAS [facility] [place] eClinicalWorks Address Unknown Phone Unavailable Care Team Providers Care Technical Cable Jointer Name Role Phone ARLEN GARCIAS Unavailable Allergies, Adverse Reactions, Alerts Substance Reaction Event Type Wheat throat swells Non Drug Allergy Egg White throat swells Non Drug Allergy Cows Milk throat swells Non Drug Allergy Peanuts throat swells Non Drug Allergy Tenerius [place] throat swells Non Drug Allergy Jessamine throat swells Non Drug Allergy Ragweed throat swells Non Drug Allergy Problems Problem Type Condition ICD-9 Code Onset Dates Condition Statu s Problem Anxiety state, unspecified 300.00 A ctive Problem Major depressive disorder, r ecurrent episode, in partial or unspecified remission 296.35 Active Problem Unspecified sleep apnea 780.57 Acti ve Assessment Anxiety state, unspecified 300.00 A ctive Assessment Major depressive disorder, r ecurrent episode, in partial or unspecified remission 296.35 Active Problem Hyperlipemia 272.4 Active Problem Benign essential hypertension 401.1 Active Problem Metabolic syndrome 277.7 Active Problem Chronic rhinitis 472.0 Active Problem Morbid obesity 278.01 Active Problem Edema 782.3 Active Problem Insomnia, unspecified 780.52 Active Medications Medication Code System Code Instructions Start Date End Date Status Dosage Flovent HFA [facility] [address]-07 110 mcg/actuation October 23, 2012 1-3 Puffs 1 time per day Amoxicillin [facility] [address]-09 875 MG Orally Twice a day 1 tablet MetFORMIN HCl ER (MOD) [facility] [address]-10 1000 MG Orally tw ice a day January 08, 2015 1 tablet with evenin g meal Brintellix [facility] [address]-58 20 MG Orally Once a day for one w [place] November 18, 2014 1 tablet Lisinopril [facility] [address]-13 40 MG Orally Once a day August 21, 2014 1 Tablet by Oral route 1 time per day Singulair [facility] 49555886314 10 MG 1 Tablet b y Oral route 1 time per day take 1 tablet by mouth 1 time per day Liraglutide [facility] [address]-89 18 MG/3ML Subcutaneous Once a da y January 08, 2015 Feb 07, 2015 0.2 ml Hydrochlorothiazide [facility] [address]-52 25 MG Orally Once a day [facility] 2014 1 Tablet by Oral route 1 time per day Omeprazole [facility] [address]-42 20 MG Orally Once a day 1 capsule Flonase [facility] [address]-24 50 mcg/actuation November 29, 2013 inhale 1 spray (50 mcg) in each nostril by intranasal route 2 times per day Meloxicam [facility] 46479996981 15 MG 1 take 1 t ablet by mouth 1 time per day Tricor [facility] 16949975371 145 MG 1 tablet by Oral route 1 time per day [facility] Abilify [facility] [address]-66 5 MG Orally Once a day 1 tablet Clarithromycin [facility] [address]-97 500 MG Orally Twice a day 1 tablet Atenolol [facility] [address]-26 100 MG Orally Once a day August 21, 2014 1 tablet by Oral route 1 time per day Procedures Procedure Coding System Code Date Office Visit, Est Pt., Level 3 CPT-4 16841 A 2014 Vital Signs Date/Time: Feb 02, 2015 Cardiac Monitoring Heart Rate 72 bpm Weight 455.0 lbs Height 72 in BMI 61.70 Index Blood Pressure Diastolic 84 mmHg Blood Pressure Systolic 140 mmHg Results No Known Results Summary Purpose eClinicalWorks Submission
--- OUTSIDE RECORDS SUMMARY | 2019-11-29 09:36 | XMS REPORT ---
Author Author Curt TIRADO Organization [facility] Address Unknown Phone Unavailable Care Team Providers Care Machine Stone Polisher Name Role Phone RON TIRADO Unavailable Unavailable PROBLEMS Type Condition ICD9-CM Code [id number] Code Onset Dates Condition S tatus SNOMED Code Problem Major depression F32.9 Active 370 238940 Problem Benign essential hypertension I10 Active 5671545 Problem Insomnia G47.00 Active 359583230 Assessment Recurrent major depressive disorder, in partial remiss ion F33.41 Feb, Active 68418068 Problem Hyperlipemia E78.5 Active 2294137 4 Problem Recurrent major depressive disorder, in partial remission F33.41 Active 68187746 Problem Callus of foot L84 Active 04847 1005 Problem Type II diabetes mellitus E11.9 Acti ve 84598492 Problem Morbid obesity E66.01 Active 68634 6002 Problem Edema R60.9 Active 314695152 Problem Renal insufficiency N28.9 Active 520937144 ALLERGIES Unknown Allergies SOCIAL HISTORY No smoking Hx information available PLAN OF CARE VITAL SIGNS MEDICATIONS Unknown Medications RESULTS No Results PROCEDURES Procedure Date Ordered Related Diagnosis Body Site Psychotherapy, patient &/family, 30 minutes, established pat ient Feb 11, 2016 IMMUNIZATIONS No Known Immunizations
--- OUTSIDE RECORDS SUMMARY | 2019-11-29 09:36 | XMS REPORT ---
Author Author Melissa Curtelieser YUNG Organization [facility] Address [address] [place] [address] Care Team Providers Care Manager Corporate Communications Name Role Phone DILSHAD Torres Unavailable PROBLEMS Type Condition ICD9-CM Code [id number] Code Onset Dates Condition S tatus SNOMED Code Problem Major depression F32.9 Active 370 360115 Problem Morbid obesity E66.01 Active 08081 6002 Problem Benign essential hypertension I10 Active 8789866 Problem Insomnia G47.00 Active 185207443 Problem Hyperlipemia E78.5 Active 7891119 4 Problem Acute bacterial conjunctivitis of left eye H10.32 Active 349494593 Problem Recurrent major depressive disorder, in partial remission F33.41 Active 01247355 Problem Edema R60.9 Active 514163451 Problem Type II diabetes mellitus E11.9 Acti ve 62174094 Problem Callus of foot L84 Active 27502 1005 Problem Renal insufficiency N28.9 Active 848573411 ALLERGIES No Information SOCIAL HISTORY Never Assessed PLAN OF CARE VITAL SIGNS MEDICATIONS Unknown [...]
--- OUTSIDE RECORDS SUMMARY | 2019-11-29 09:36 | XMS REPORT ---
Author Author Curt DIAZ [facility] Address [address] [place] [address] Care Team Providers Care Molding Manager Name Role Phone CHRIS DIAZ Unavailable PROBLEMS Type Condition ICD9-CM Code [id number] Code Onset Dates Condition S tatus SNOMED Code Problem Insomnia G47.00 Active 335726100 Problem Morbid obesity E66.01 Active 43108 6002 Problem Benign essential hypertension I10 Active 8807644 Problem Hyperlipemia E78.5 Active 4374281 4 Problem Major depression F32.9 Active 370 975341 Problem Acute bacterial conjunctivitis of left eye H10.32 Active 038121121 Problem Recurrent major depressive disorder, in partial remission F33.41 Active 78426426 Problem Renal insufficiency N28.9 Active 972559131 Problem Type II diabetes mellitus E11.9 Acti ve 15567717 Problem Callus of foot L84 Active 38128 1005 Problem Edema R60.9 Active 797728370 ALLERGIES Substance Reaction Event Type Date Status Wheat throat swells Non Drug Allergy May, Active Egg White throat swells Non Drug Allergy May, Active Cows Milk throat swells Non Drug Allergy May, Active Peanuts throat swells Non Drug Allergy May, Active Tenerius [place] throat swells Non Drug Allergy May, Active [place] throat swells Non Drug Allergy May, Active Ragweed throat swells Non Drug Allergy May, Active SOCIAL HISTORY No smoking Hx information available PLAN OF CARE Activity Details Follow Up prn Reason: VITAL SIGNS Height 71.5 in 2016-05-27 Weight 408.1 lbs 2016-05-27 Temperature 97.8 degrees Fahrenheit 2016-05-27 Heart Rate 82 bpm 2016-05-27 Respiratory Rate 20 2016-05-27 BMI 56.12 kg/m2 2016-05-27 Blood pressure systolic 126 mmHg 2016-05-27 Blood pressure diastolic 72 mmHg 2016-05-27 MEDICATIONS Medication Instructions Dosage Frequency Start Date End Date Duration S chandni Omeprazole 20 MG 1 Tablet by Oral route 1 time per day Active Flovent HFA 110 mcg/actuation 1-3 Puffs 1 time per day 1 4 Oct, 2012 Active Montelukast Sodium 10 MG TAKE ONE TABLET BY MOUTH DAILY Active Trintellix 20 MG Orally Once a day 1 tablet 24h Active Nystatin 677609 UNIT/ML Mouth/Throat Four times a day 5ml 6h May, May, 10 days Active Flonase 50 mcg/actuation inhale 1 spray (50 mcg) in each nostril by intranasal route 2 times per day Nov, Active Atenolol 50 MG Orally Once a day 1 tablet 24h Active Cetirizine HCl 10 mg Orally Once a day 1 tablet 24h Active Rexulti 1 MG Orally Once a day 1 tablet 24h Jun, 30 days Active Lisinopril 40 MG TAKE ONE TABLET BY MOUTH ONCE DAILY. 90 Active RESULTS Name Result Date Reference Range STREP A (IN HOUSE) 2016-05-27 STREP A neg Control + Lot # [id number] Exp date 02/27 PROCEDURES Procedure Date Ordered Related Diagnosis Body Site STREP A ASSAY W/OPTIC May 27, 2016 Office Visit, Est Pt., Level 3 May 27, 2016 IMMUNIZATIONS No Known Immunizations
--- OUTSIDE RECORDS SUMMARY | 2019-11-29 09:36 | XMS REPORT ---
Author Author Curt DIAZ [facility] Address [address] [place] [address] Care Team Providers Care Dry Cell Sealer Name Role Phone CHRIS DIAZ Unavailable PROBLEMS Type Condition ICD9-CM Code [id number] Code Onset Dates Condition S tatus SNOMED Code Problem Recurrent major depressive disorder, in partial remission F33.41 Active 50172398 Problem Metabolic syndrome E88.81 Active 2 21970941 Problem Acute bacterial conjunctivitis of left eye H10.32 Active 992037766 Problem DANIELA (generalized anxiety disorder) F41.1 Active 81379401 Problem BMI 45.0-49.9, adult Z68.42 Active 178187503 Problem Anxiety F41.9 Active 46879918 Problem Severe episode of recurrent major depressive disorder, without psychotic features F33.2 Active 49346365 Problem Mixed obsessional thoughts and acts F42.2 Active 90434532 Problem Vitamin D deficiency E55.9 Active 57105633 Problem Insomnia G47.00 Active 947482253 Problem Major depression F32.9 Active 370 191443 Problem Hyperlipemia E78.5 Active 6722158 4 Problem Benign essential hypertension I10 Active 6716506 Problem Renal insufficiency N28.9 Active 928227173 Problem Morbid obesity E66.01 Active 28329 6002 Problem Edema R60.9 Active 332234352 Problem Type II diabetes mellitus E11.9 Acti ve 92329987 Problem Callus of foot L84 Active 38809 1005 ALLERGIES Substance Reaction Event Type Date Status Egg White throat swells Non Drug Allergy Apr, Active Cows Milk throat swells Non Drug Allergy Apr, Active Wheat throat swells Non Drug Allergy Apr, Active Peanuts throat swells Non Drug Allergy Apr, Active Tenerius [place] throat swells Non Drug Allergy Apr, Active [place] throat swells Non Drug Allergy Apr, Active Ragweed throat swells Non Drug Allergy Apr, Active ENCOUNTERS Encounter Location Date Diagnosis [facility] [address] [facility] [id number] [address] [place] [phone] Nov, [facility] [address] [id number] [place]ILL[place] [id number] October, [facility] [address] [id number] MILLS[place] [id number] October, [facility] [address] [facility] [id number] [address] [place] [phone] October, BMI 45.0-49.9, adult Z68.42 ; Mixed obsessional thoughts and acts F42.2 ; Recurrent major depressive disorder, in partial remission F33.41 and DANIELA (generalized anxiety disorder) F41.1 [facility] [address] [id number] [place]ILLS[place] [id number] October, Benign essential hypertension I10 ; Morb id obesity E66.01 and BMI 45.0-49.9, adult Z68.42 [facility] [address] [id number] [place]ILLS[place] [id number] Sep, [facility] [address] [id number] [place]ILLS[place] [id number] Sep, [facility] [address] [id number] [place]ILL[place] [id number] Sep, [facility] [address] [id number] [place]ILL[place] [id number] Sep, Hospital discharge follow-up Z09 ; Aller gic rhinitis, unspecified seasonality, unspecified trigger J30.9 and Shortness of breath R06.02 [facility] [address] [id number] [place]ILL[place] [id number] Sep, Recurrent major depressive disorder, in partial remission F33.41 [facility] [address] [id number] [place]ILL[place] [id number] Aug, Irritable mood R45.4 [facility] [address] [facility] [id number] [address] [place] [address] Aug, [facility] [address] [id number] [place]ILL[place] [id number] Jul, Benign essential hypertension I10 ; Robert a R60.9 and Impacted cerumen of left ear H61.22 [place] [address] [facility] [id number] [address] [place] [phone] 14 Jul, 2017 Major depression F32.9 ; Rec urrent major depressive disorder, in partial remission F33.41 and Anxiety F41.9 [place] [address] [facility] [id number] [address] [place] [address] Jun, Major depression F32.9 ; Rec urrent major depressive disorder, in partial remission F33.41 and Anxiety F41.[address] [place] [address] [id number] [place]ILLS[place] [id number] Jun, Major depression F32.9 ; Morbid obesity E66.01 ; Irritable mood R45.4 ; Hand weakness R29.898 and Vitamin D deficiency E55.[address] [place] [address] [id number] [place]ILL[place] [id number] Jun, [place] [address] [id number] [place]ILL[place] [id number] May, Major depression F32.9 [place] [address] [facility] [id number] [address] [place] [address] May, Major depression F32.9 [facility] [address] [id number] [place]ILLS[place] [id number] May, BMI 50.0-59.9, adult Z68.43 ; Major depr ession F32.9 ; Anxiety F41.9 ; Hypertrophic toenail L60.2 and Pain of left great toe M79.[address] [place] [address] [id number] [place]ILLS[place] [id number] May, Recurrent major depressive disorder, in partial remission F33.41 [place] [address] [facility] [id number] [address] [place] [address] Apr, [facility] [address] [id number] [place]ILLS[place] [id number] Apr, [facility] [address] [facility] [id number] [address] [place] [address] Apr, Major depression F32.9 [facility] [address] [id number] [place] [id number] Apr, Severe episode of recurrent major depres sive disorder, without psychotic features F33.2 ; Anxiety F41.9 and Insomnia G47.00 [facility] [address] [id number] [place]ILLS[place] [id number] Apr, [facility] [address] [facility] [id number] [address] [place] [address] Apr, [facility] [address] [id number] [place]ILL[place] [id number] Apr, [facility] [address] [id number] [place]ILL[place] [id number] Mar, [facility] [id number] [place] [address] [id number] Mar, Allergic conjunctivitis of both eyes H10 .13 [facility] [address] [facility] [id number] [address] [place] [address] Mar, Major depression F32.9 [facility] [address] [id number] [place]ILLS[place] [id number] Mar, Metabolic syndrome E88.81 ; History of g astric bypass Z98.890 ; Benign essential hypertension I10 and Allergic conjunctivitis of both eyes H10.13 [facility] [address] [facility] [id number] [address] [place] [address] Mar, Major depression F32.9 [facility] [address] [id number] [place]ILL[place] [id number] Feb, [facility] [address] [facility] [id number] [address] [place] [phone] 12 Feb, 2017 Major depression F32.9 [place] [address] [facility] [facility] [address] [id number] [place] [id number] Feb, Subacute maxillary sinusitis J01.00 and Bronchitis J40 [facility] [address] [facility] [id number] [address] [place] [address] Feb, Major depressive disorder, r ecurrent, moderate F33.1 [facility] [place] [address] [facility] [address] [id number] [place] [id number] Jan, [facility] [address] [id number] [place] [address] [id number] Jan, Acute non-recurrent maxillary sinusitis J01.00 and Skin tag L91.[address] [id number] [place] [address] [id number] Jan, Cough R05 and Sinus congestion R09.[address] [id number] [place] [id number] Jan, [address] [id number] [place] [address] [id number] Jan, Benign essential hypertension I10 ; Hist ory of gastric bypass Z98.890 and Nausea and vomiting in adult R11.2 [place] [address] [place] [id number] [address] [place] [phone] Jan, Major depressive disorder, r ecurrent, moderate F33.1 [facility] [address] [facility] [id number] [address] [place] [address] Dec, Insomnia G47.00 ; Recurrent major depressive disorder, in partial remission F33.41 and Morbid obesity E66.01 [facility] [address] [facility] [address] [id number] [place] [id number] Dec, [address] [id number] [place] [address] [id number] Dec, Chronic bacterial conjunctivitis of left eye H10.402 [place] [address] [facility] [address] [id number] [place] [id number] 27 Nov, [address] [id number] [place] [id number] Nov, Dental examination Z01.[address] [id number] [place]ILL[place] [id number] 23 Nov, 2016 Benign essential hypertension I10 ; Hist ory of gastric bypass Z98.890 and Nausea and vomiting in adult R11.2 [place] [address] [facility] [id number] [address] [place] [address] 13 Nov, 2016 Major depressive disorder, r ecurrent, moderate F33.1 ; Generalized anxiety disorder F41.1 and Insomnia due to other mental disorder F51.05 [place] [address] [facility] [id number] [address] [place] [phone] 12 Nov, 2016 Recurrent major depressive d isorder, in partial remission F33.41 ; Insomnia G47.00 and Morbid obesity E66.01 [facility] [address] [id number] [place] [id number] October, Abscess of left arm L02.414 [place] [address] [facility] [id number] [address] [place] [address] October, Morbid obesity E66.01 ; Lida r depression F32.9 and Recurrent major depressive disorder, in partial remission F33.41 [address] [id number] MILLS, [place] [id number] Sep, Benign essential hypertension I10 ; Morb id obesity E66.01 ; S/P gastric bypass Z98.84 ; Abscess L02.91 and Chronic bacterial conjunctivitis of left eye H10.[address] [id number] [place]ILLS[place] [id number] 17 Sep, 2016 Dental examination Z01.20 [facility] [address] [facility] [id number] [address] [place] [id number] 11 Sep, 2016 Morbid obesity E66.01 ; Lida r depression F32.9 and Recurrent major depressive disorder, in partial remission F33.41 [facility] [address] [facility] [id number] [address] [place] [phone] Jul, [facility] [address] [facility] [id number] [address] [place] [id number] Jul, Major depressive disorder, r ecurrent, moderate F33.1 [place] [address] [facility] [id number] [address] [place] [id number] Jul, Major depressive disorder, r ecurrent, moderate F33.1 and Generalized anxiety disorder F41.1 [facility] [id number] [place] [address] [id number] Jul, Cough R05 [place] [address] [facility] [id number] [address] [place] [id number] Jul, Morbid obesity E66.01 ; Lida r depression F32.9 and Recurrent major depressive disorder, in partial remission F33.41 [facility] [id number] [place] [address] [id number] Jul, [facility] [id number] [place] [address] [id number] Jul, [place] [address] [id number] [place] [address] [id number] Jul, Gastroenteritis K52.9 and Cough R05 [place] [address] [id number] [place] [address] [id number] Jun, Acute bacterial conjunctivitis of left e ye H10.32 [place] [address] [facility] [id number] [address] [place] [address] Jun, [place] [address] [facility] [id number] [address] [place] [phone] Jun, Recurrent major depressive d isorder, in partial remission F33.41 [place] [address] [facility] [id number] [address] [place] [address] May, Major depression F32.9 and M orbid obesity E66.01 [facility] [address] [facility] [id number] [address] [place] [phone] May, [facility] [address] [facility] [address] [id number] [place] [address] [id number] May, Thrush B37.0 [facility] [address] [facility] [id number] [address] [place] [phone] Apr, Major depressive disorder, r ecurrent, moderate F33.1 [facility] [address] [facility] [id number] [address] [place] [address] Apr, Insomnia G47.00 ; Major depr ession F32.9 and Recurrent major depressive disorder, in partial remission F33.41 [place] [address] [facility] [id number] [address] [place] [address] Apr, [place] [address] [facility] [id number] [address] [place] [phone] Apr, Major depression F32.9 and R ecurrent major depressive disorder, in partial remission F33.[address] [id number] [place] [address] [id number] Mar, Benign essential hypertension I10 ; Morb id obesity E66.01 ; Impacted cerumen of both ears H61.23 ; Laceration of finger of right hand, initial encounter S61.219A and Encounter for immunization Z23 [facility] [address] [facility] [id number] [address] [place] [phone] Mar, [facility] [address] [facility] [id number] [address] [place] [phone] Mar, [place] [address] [facility] [id number] [address] [place] [phone] Mar, [address] [id number] [place] [id number] Feb, Nausea R11.0 ; Blood in the stool K92.1 and Benign essential hypertension I10 [facility] [address] [facility] [id number] [address] [place] [phone] Feb, Major depression F32.9 and R ecurrent major depressive disorder, in partial remission F33.[address] [facility] [address] [id number] [place]ILLS[place] [id number] Feb, [facility] [address] [id number] [place] [id number] Feb, Recurrent major depressive disorder, in partial remission F33.[address] [facility] [address] [id number] [place]ILLS[place] [id number] Jan, [facility] [address] [id number] [place] [id number] Jan, Benign essential hypertension I10 ; Robert a R60.9 and Hyperlipidemia, unspecified hyperlipidemia type E78.5 [facility] [address] [id number] [place]ILLS[place] [id number] Jan, Recurrent major depressive disorder, in partial remission F33.41 [facility] [address] [id number] [place] [id number] Jan, [facility] [address] [id number] [place]ILLS[place] [id number] Jan, [facility] [address] [id number] [place] [id number] Jan, [facility] [address] [facility] [id number] [address] [place] [phone] Jan, [facility] [address] [facility] [id number] [address] [place] [id number] Dec, [facility] [address] [facility] [id number] [address] [place] [address] Nov, [facility] [address] [facility] [id number] [address] [place] [phone] Nov, Major depression F32.9 [facility] [address] [facility] [id number] [address] [place] [phone] Nov, [facility] [address] [facility] [id number] [address] [place] [address] Nov, [facility] [address] [facility] [id number] [address] [place] [phone] Nov, Major depressive disorder, r ecurrent episode, mild F33.0 and Anxiety F41.9 [facility] [id number] [place] [address] [id number] Nov, [place] [id number] [place] [address] [id number] October, Left elbow pain M25.522 and Other season al allergic rhinitis J30.2 [facility] [address] [facility] [address] [id number] [place] [address] [id number] October, [place] [address] [facility] [id number] [address] [place] [address] October, Major depressive disorder, r ecurrent, moderate F33.1 [facility] [address] [facility] [id number] [address] [place] [address] October, Major depression F32.9 [place] [address] [facility] [id number] [address] [place] [address] Sep, [place] or callus L84 and Onych omycosis B35.1 [place] [address] [facility] [id number] [address] [place] [address] Sep, Major depressive disorder, r ecurrent, moderate F33.1 [facility] [address] [facility] [id number] [address] [place] [address] Sep, Major depression F32.9 [place] [address] [facility] [id number] [address] [place] [address] Sep, Moderate episode of recurren t major depressive disorder F33.1 [facility] [id number] [place] [address] [id number] Sep, Muscle strain T14.8 [facility] [address] [facility] [id number] [address] [place] [id number] Aug, Major depression F32.9 [facility] [address] [facility] [id number] [address] [place] [phone] Aug, Major depression F32.9 [facility] [address] [facility] [id number] [address] [place] [address] Jul, Morbid obesity E66.01 and Ma cora depression F32.9 [facility] [address] [facility] [id number] [address] [place] [id number] Jul, Depression, major, recurrent , moderate F33.1 [facility] [address] [facility] [address] [id number] [place] [address] [id number] Jul, [facility] [address] [facility] [id number] [address] [place] [phone] Jul, [facility] [address] [facility] [id number] [address] [place] [phone] Jul, Major depression F32.9 and M orbid obesity E66.01 [facility] [id number] [place] [address] [id number] Jul, Type II diabetes mellitus E11.9 ; Callus of foot L84 ; Benign essential hypertension I10 and Renal insufficiency N28.9 [facility] [address] [facility] [id number] [address] [place] [phone] Jul, Depression, major, recurrent , moderate F33.1 [facility] [address] [facility] [id number] [address] [place] [id number] Jul, Major depression F32.9 [facility] [address] [facility] [id number] [address] [place] [address] Jul, [facility] [address] [facility] [id number] [address] [place] [address] Jun, Major depression F32.9 [place] [address] [facility] [id number] [address] [place] [id number] Jun, Major depressive disorder, r ecurrent, moderate F33.1 [place] [address] [facility] [id number] [address] [place] [id number] Jun, [place] [address] [facility] [id number] [address] [place] [id number] Jun, Major depressive disorder, r ecurrent, moderate F33.1 and Major depression F32.[address] [id number] [place] [address] [id number] Jun, Type II diabetes mellitus E11.9 [place] [address] [facility] [id number] [address] [place] [phone] Jun, Depression, major, recurrent , moderate F33.1 [place] [address] [place] [id number] [address] [place] [phone] May, Major depressive disorder, r ecurrent, moderate F33.1 [place] [id number] [place] [address] May, [address] [id number] [place] [address] [id number] May, Edema R60.9 [place] [address] [place] [id number] [place] [address] 17 May, 2015 Insomnia G47.00 and Major de pression F32.[address] [id number] [place] [address] [id number] 15 May, 2015 Morbid obesity E66.01 ; Edema R60.9 ; Sh ortness of breath R06.02 ; Benign essential hypertension I10 and Renal insufficiency N28.[address] [id number] [place] [address] [id number] May, 2015 Hyperlipemia 272.4 and Renal insufficien cy N28.9 [place] [address] [place] [id number] [address] [place] [id number] Apr, Major depression F32.9 [facility] [address] [facility] [id number] [address] [place] [phone] Apr, [facility] [address] [facility] [id number] [address] [place] [phone] Apr, Major depressive disorder, r ecurrent, moderate F33.1 [facility] [id number] [place] [address] [id number] Apr, Type II diabetes mellitus E11.9 ; Benign essential hypertension I10 ; Edema R60.9 and Renal insufficiency N28.9 [place] [address] [facility] [id number] [address] [place] [id number] Mar, Major depressive disorder, r ecurrent, moderate F33.1 [place] [address] [place] [id number] [address] [place] [id number] Mar, [place] [address] [place] [id number] [address] [place] [id number] Mar, Major depression F32.9 [facility] [address] [place] [address] [id number] [place] [id number] Mar, Morbid obesity E66.01 ; Benign essential hypertension I10 and Type II diabetes mellitus E11.9 [place] [address] [address] [facility] [id number] [address] [place] [id number] Feb, Major depressive disorder, r ecurrent, moderate F33.1 [place] [address] [address] [facility] [id number] [address] [place] [id number] Feb, Major depressive disorder, r ecurrent episode, in partial or unspecified remission 296.35 ; Anxiety state, unspecified 300.00 and Morbid obesity 278.01 [place] [address] [address] [facility] [id number] [address] [place] [id number] Feb, [facility] [address] [id number] [id number] Feb, Vomiting 787.03 and Viral syndrome 079.9 9 [facility] [address] [facility] [id number] [address] [place] [id number] 15 Feb, 2015 Major depression, recurrent 296.30 ; Generalized anxiety disorder 300.02 and No condition on [place] II V71.09 [facility] [address] [place] [address] AVE [id number] [id number] 03 Feb, 2015 Skin tag 701.9 [facility] [address] [place] [id number] [address] [place] [phone] Feb, [facility] [address] [facility] [id number] [address] [place] [phone] Jan, Depression, major, recurrent , moderate 296.[address] [id number] [id number] Jan, Nausea and vomiting 787.01 ; Rib pain on right side 786.50 and Fall on or from sidewalk curb E880.1 [facility] [id number] [place] [id number] Jan, [facility] [address] [place] [id number] [address] [place] [id number] Jan, Major depressive disorder, r ecurrent episode, in partial or unspecified remission 296.35 and Anxiety state, unspecified 300.00 [address] [id number] [place] [id number] Jan, [facility] [address] [facility] [id number] [address] [place] [address] Jan, Depression, major, recurrent , moderate 296.32 [facility] [address] [facility] [id number] [address] [place] [address] Jan, Major depression, recurrent 296.30 ; No condition on [place] II V71.09 and No condition on axis III V71.[address] [id number] [id number] Jan, Drug-induced nausea and vomiting 787.01 [place] [id number] [address] [place] [address] Jan, Depression, major, recurrent , moderate 296.[address] [address] Dec, Depression, major, recurrent , moderate 296.[address] [id number] [place] [id number] Dec, Morbid obesity 278.01 ; Metabolic syndro me 277.7 ; Hyperlipemia 272.4 ; Benign essential hypertension 401.1 ; Dietary counseling V65.3 ; Exercise counseling V65.41 and Inflamed skin tag 701.[address] [address] Dec, Depression, major, recurrent , moderate 296.[address] [address] Dec, [address] [address] Dec, Major depression, recurrent 296.30 ; Anxiety, generalized 300.02 and No condition on [place] II V71.[address] [address] Dec, Depression, major, recurrent , moderate 296.[address] [address] Dec, Major depressive disorder, r ecurrent episode, moderate 296.32 [place] [id number] [address] [place] [address] Dec, Depression, major, recurrent , moderate 296.[address] [address] Dec, Depression, major, recurrent , moderate 296.[address] [address] Dec, Depression, major, recurrent , moderate 296.32 [facility] [address] [place] [id number] [address] [place] [address] Dec, Depression, major, recurrent , moderate 296.32 [facility] [address] [place] [id number] [place] [address] Nov, Depression, major, recurrent , moderate 296.32 [place] [address] [address] Nov, Major depression 296.20 ; So cial phobia 300.23 and No condition on Mayfield II V71.09 [facility] [address] [place] [id number] [place] [address] Nov, Depression, major, recurrent , moderate 296.32 [place] [address] [address] Nov, Major depressive disorder, r ecurrent episode, moderate 296.32 and Generalized anxiety disorder 300.02 [facility] [address] [address] Nov, Depression, major, recurrent , moderate 296.32 [facility] [address] [address] Nov, Depression, major, recurrent , moderate 296.32 [facility] [address] [address] October, Generalized anxiety disorder 300.02 ; No condition on Mayfield II V71.09 and Major depressive disorder, recurrent 296.30 [facility] [address] [address] Sep, [place] [address] [address] Sep, [facility] [address] [place] [id number] [address] [place] [address] Aug, [facility] [address] [address] Aug, [facility] [address] [id number] [facility] [place] [address] 23 Aug, 2014 [facility] [address] [id number] [facility] [place] [address] 23 Aug, 2014 [facility] [address] [id number] [address] [place] [address], [place] [address] 20 Aug, 2014 [facility] [address] [id number] [address] [place] [address], [place] [address] 20 Aug, 2014 [facility] [address] [id number] [address] [place] [address], [place] [address] 20 Aug, 2014 [facility] [address] [id number] [address] [place] [address], [place] [address] 20 Aug, 2014 [facility] [address] [id number] [address] [place] [address], [place] [address] 13 Aug, 2014 [facility] [address] [id number] [address] [place] [address], [place] [address] 13 Aug, 2014 [facility] [address] [id number] [address] [place] [address], [place] [address] 13 Aug, 2014 [facility] [address] [id number] [address] [place] [address], [place] [address] 13 Aug, 2014 [facility] [address] [id number] [address] [place] [address], [place] [address] 12 Aug, 2014 [facility] [address] [id number] [address] [place] [address], [place] [address] 12 Aug, 2014 [facility] [address] [id number] [address] [place] [address], [place] [address] 10 Aug, 2014 [facility] [address] [id number] [address] [place] [address], [place] [address] 10 Aug, 2014 [facility] [address] [id number] [address] [place] [address], [place] [address] 09 Aug, 2014 [facility] [address] [id number] [address] [place] [address], [place] [address] Aug, [facility] [address] [id number] [address] [place] [address], [place] [address] Jul, [facility] [address] [id number] [address] [place] [address], [place] [address] Jul, [facility] [address] [id number] [address] [place] [address], [place] [address] Jul, 2014 [facility] [address] [id number] [address] [place] [address], [place] [address] Jul, 2014 [facility] [address] [id number] [address] [place] [address], [place] [address] Jul, [facility] [address] [id number] [address] [place] [address], [place] [address] Jul, [facility] [address] [id number] [address] [place] [address], [place] [address] Jun, [facility] [address] [id number] [address] [place] [address], [place] [address] Jun, [facility] [address] [id number] [address] [place] [address], [place] [address] Jun, [facility] [address] [id number] [address] [place] [address], [place] [address] Jun, [facility] [address] [id number] [address] [place] [address], [place] [address] Jun, [facility] [address] [id number] [address] [place] [address], [place] [address] Jun, [facility] [address] [id number] [address] [place] [address], [place] [address] Jun, [facility] [address] [id number] [address] [place] [address], [place] [address] Jun, [facility] [address] [id number] [address] [place] [address], [place] [address] Jun, [facility] [address] [id number] [address] [place] [address], [place] [address] Jun, [facility] [address] [id number] [address] [place] [address], [place] [address] Jun, [facility] [address] [id number] [address] [place] [address], [place] [address] Jun, [facility] [address] [id number] [place] [id number] Jun, [facility] [address] [id number] [address] [place] [address], [place] [address] Jun, [facility] [address] [id number] [address] [place] [address], [place] [address] Jun, [facility] [address] [id number] [address] [place] [address], [place] [address] Jun, [facility] [address] [id number] [address] [place] [address], [place] [address] May, [facility] [address] [id number] [address] [place] [address], [place] [address] May, [facility] [address] [id number] [address] [place] [address], [place] [address] May, [facility] [address] [id number] [address] [place] [address], [place] [address] May, [facility] [address] [id number] [address] [place] [address], [place] [address] Apr, [facility] [address] [id number] [address] [place] [address], [place] [address] Apr, [facility] [address] [id number] [address] [place] [address], [place] [address] Apr, [facility] [address] [id number] [address] [place] [address], [place] [address] Apr, [facility] [address] [id number] [address] [place] [address], [place] [address] Apr, [facility] [address] [id number] [address] [place] [address], [place] [address] Apr, [facility] [address] [id number] [address] [place] [address], [place] [address] Apr, [facility] [address] [id number] [address] [place] [address], [place] [address] Apr, [facility] [address] [id number] [address] [place] [address], [place] [address] Apr, [facility] [address] [id number] [address] [place] [address], [place] [address] Apr, [facility] [address] [id number] [address] [place] [address], [place] [address] Apr, [facility] [address] [id number] [address] [place] [address], [place] [address] Apr, [facility] [address] [id number] [address] [place] [address], [place] [address] Apr, [facility] [address] [id number] [address] [place] [address], [place] [address] Apr, [facility] [address] [id number] [address] [place] [address], [place] [address] Apr, [facility] [address] [id number] [address] [place] [address], [place] [address] Apr, [facility] [address] [id number] [address] [place] [address], [place] [address] Apr, [facility] [address] [id number] [address] [place] [address], [place] [address] Apr, [facility] [address] [id number] [address] [place] [address], [place] [address] Apr, [facility] [address] [id number] [address] [place] [address], [place] [address] Apr, [facility] [address] [id number] [address] [place] [address], [place] [address] 08 Mar, 2014 [facility] [address] [id number] [address] [place] [address], [place] [address] Mar, [facility] [address] [id number] [address] [place] [address], [place] [address] Mar, [facility] [address] [id number] [address] [place] [address], [place] [address] Mar, [facility] [address] [id number] [address] [place] [address], [place] [address] Mar, [facility] [address] [id number] [address] [place] [address], [place] [address] Mar, [facility] [address] [id number] [address] [place] [address], [place] [address] Mar, [facility] [address] [id number] [address] [place] [address], [place] [address] Mar, [facility] [address] [id number] [address] [place] [address], [place] [address] Mar, [facility] [address] [id number] [address] [place] [address], [place] [address] Mar, [facility] [address] [id number] [address] [place] [address], [place] [address] Feb, [facility] [address] [id number] [address] [place] [address], [place] [address] Feb, [facility] [address] [id number] [address] [place] [address], [place] [address] Feb, [facility] [address] [id number] [address] [place] [address], [place] [address] Feb, [facility] [address] [id number] [address] [place] [address], [place] [address] Jan, [facility] [address] [id number] [address] [place] [address], [place] [address] Jan, [facility] [address] [id number] [facility] [place] [address] Jan, [facility] [address] [id number] [address] [place] [address], [place] [address] Jan, [facility] [address] [id number] [address] [place] [address], [place] [address] Jan, [facility] [address] [id number] [address] [place] [address], [place] [address] Jan, [facility] [address] [id number] [address] [place] [address], [place] [address] Dec, [facility] [address] [id number] [address] [place] [address], [place] [address] Dec, [facility] [address] [id number] [address] [place] [address], [place] [address] Nov, [facility] [address] [id number] [address] [place] [address], [place] [address] Nov, [facility] [address] [id number] [address] [place] [address], [place] [address] Nov, [facility] [address] [id number] [address] [place] [address], [place] [address] Nov, [facility] [address] [id number] [address] [place] [address], [place] [address] Nov, [facility] [address] [id number] [address] [place] [address], [place] [address] Nov, [facility] [address] [id number] [address] [place] [address], [place] [address] Sep, [facility] [address] [id number] [address] [place] [address], [place] [address] Sep, [facility] [address] [id number] [address] [place] [address], [place] [address] Sep, [facility] [address] [id number] [address] [place] [address], [place] [address] Sep, [facility] [address] [id number] [address] [place] [address], [place] [address] Aug, [facility] [address] [id number] [address] [place] [address], [place] [address] Aug, [facility] [address] [id number] [address] [place] [address], [place] [address] Jul, [facility] [address] [id number] [address] [place] [address], [place] [address] Jul, [facility] [address] [id number] [address] [place] [address], [place] [address] Jun, [facility] [address] [id number] [address] [place] [address], [place] [address] Jun, [facility] [address] [id number] [address] [place] [address], [place] [address] Jun, [facility] [address] [id number] [address] [place] [address], [place] [address] Jun, [facility] [address] [id number] [address] [place] [address], [place] [address] May, [facility] [address] [id number] [address] [place] [address], [place] [address] May, [facility] [address] [id number] [address] [place] [address], [place] [address] May, [facility] [address] [id number] [address] [place] [address], [place] [address] May, [facility] [address] [id number] [address] [place] [address], [place] [address] May, [facility] [address] [id number] [address] [place] [address], [place] [address] May, [facility] [address] [id number] [address] [place] [address], [place] [address] Apr, [facility] [address] [id number] [address] [place] [address], [place] [address] Apr, [facility] [address] [id number] [address] [place] [address], [place] [address] Apr, [facility] [address] [id number] [address] [place] [address], [place] [address] Apr, [facility] [address] [id number] [address] [place] [address], [place] [address] Mar, [facility] [address] [id number] [address] [place] [address], [place] [address] Mar, [facility] [address] [id number] [address] [place] [address], [place] [address] Mar, [facility] [address] [id number] [address] [place] [address], [place] [address] Mar, [facility] [address] [id number] [address] [place] [address], [place] [address] Feb, [facility] [address] [id number] [place] [id number] Jan, [facility] [address] [id number] [address] [place] [address], [place] [address] Jan, [facility] [address] [id number] [address] [place] [address], [place] [address] Dec, [facility] [address] [id number] [address] [place] [address], [place] [address] 15 Dec, 2012 [facility] [address] [id number] [address] [place] [address], [place] [address] Dec, [facility] [address] [id number] [place] [id number] Dec, [facility] [address] [id number] [address] [place] [address], [place] [address] Nov, [facility] [address] [id number] [address] [place] [address], [place] [address] Nov, [facility] [address] [id number] [address] [place] [address] Nov, [facility] [address] [id number] [address] [place] [address] Nov, [facility] [address] [id number] [address] [place] [address] Nov, [facility] [address] [id number] [address] [place] [address] October, [facility] [address] [id number] [address] [place] [address] October, [facility] [address] [id number] [address] [place] [address] Aug, [facility] [address] [id number] [address] [place] [address] Nov, IMMUNIZATIONS No Known Immunizations SOCIAL HISTORY Never Assessed REASON FOR VISIT Depression follow up chato meyer PLAN OF CARE Activity Details Follow Up 4 Weeks Reason:depression f/ u VITAL SIGNS Height 71.5 in 2017-04-24 Weight 357.4 lbs 2017-04-24 Temperature 97.8 degrees Fahrenheit 2017-04-24 Heart Rate 76 bpm 2017-04-24 Respiratory Rate 18 2017-04-24 BMI 49.15 kg/m2 2017-04-24 Blood pressure systolic 158 mmHg 2017-04-24 Blood pressure diastolic 90 mmHg 2017-04-24 MEDICATIONS Medication Instructions Dosage Frequency Start Date End Date Duration S tatus Flonase 50 mcg/act nasally once per day 1 spray (50 mcg) in each nostril by intranasal route 2 times per day Nov, Active Trazodone HCl 50 mg Orally Once a day- bedtime 1 tablet Nov, Active Pristiq 50 mg Orally Once a day 1 tablet 24h Apr, Active Lisinopril 40 mg Orally Once a day 1 tablet 24h Active Centrum - Active Montelukast Sodium 10 MG TAKE ONE TABLET BY MOUTH DAILY Active BusPIRone HCl 10 mg Orally Twice a day as needed for anxiety 1 tabl et Apr, Active Atenolol 100 mg 1 tablet Once a day Orally Active Zofran 8 MG Orally Once a day 1 tablet 24h A ctive Omeprazole 40 MG Orally Once a day 1 tablet 24h 0 da ys Active Vitamin D-3 1000 UNIT Orally Once a day 2 capsule 24h Active Patanol 0.1 % Ophthalmic Twice a day 1 drop into affected eye 12h 23 Mar, 2017 Active Cetirizine HCl 10 mg Orally Once a day 1 tablet 24h Active Flovent HFA 110 mcg/actuation inhalation once per day 1-3 Puffs 1 time per day October, 0 Active RESULTS No Results [...] 03/2016 Hospitalization History gastric sleeve Hospitalization History [facility] Trouble with left shoulder blade 08/2017
--- OUTSIDE RECORDS SUMMARY | 2019-11-29 09:36 | XMS REPORT ---
Author Author Curt GRIGSBY Organization [employer] Address Unknown Phone Unavailable Care Team Providers Care Gas Meter Checker Name Role Phone DILSHAD GRIGSBY Unavailable Allergies No Known Allergies Problems Problem Type Condition Code Onset Dates Condition Statu s Problem Major depression F32.9 Active Problem Hyperlipemia E78.5 Active Problem Edema R60.9 Active Problem Renal insufficiency N28.9 Active Problem Callus of foot L84 Active Problem Benign essential hypertension I10 Active Problem Insomnia G47.00 Active Problem Type II diabetes mellitus E11.9 Ac tive Problem Morbid obesity E66.01 Active Medications Medication Code System Code Instructions Start Date End Date Status Dosage Rexulti [facility] [address]-87 1 MG Orally Once a day Jun 19, 2015 1 tablet Results No Known Results Summary Purpose [employer] Submission
--- OUTSIDE RECORDS SUMMARY | 2019-11-29 09:36 | XMS REPORT ---
Author Author Curt DIAZ [facility] [employer] Address Unknown Phone Unavailable Care Team Providers Care Wrapper Leaf Inspector Name Role Phone CHRIS DIAZ CP Unavailable [...] unspecified 780.52 Active Medications No Known Medications Results No Known Results Summary Purpose [employer] Submission
--- OUTSIDE RECORDS SUMMARY | 2019-11-29 09:36 | XMS REPORT ---
Author Author Curt GRIGSBY Organization [employer] Address Unknown Phone Unavailable Care Team Providers Care Stereo Compiler Name Role Phone DILSHAD GRIGSBY Unavailable Allergies [...] Start Date End Date Status Dosage Rexulti [facility] [place] [address]-06 1 MG Orally Once a day Jun 19, 2015 1 tablet Results No Known Results Summary Purpose [employer] Submission
--- NOTE | 2019-11-29 09:37 | Ophthalmologist Pre-Op Note ---
Pre-Operative Progress Note H&P Reviewed The H&P was reviewed, patient examined and no changes noted. Date H&P Reviewed: Nov 29, 2019 Time H&P Reviewed: 09:37 Pre-Op Dx Cataract, Left Eye ADEBAYO EPPERSON MD Nov 29, 2019 09:37
--- OUTSIDE RECORDS SUMMARY | 2019-11-29 09:37 | XMS REPORT ---
Author Author Curt DIAZ [facility] Address [address] [place] [address] Care Team Providers Care Sleep Lab Technologist Name Role Phone CHRIS DIAZ Unavailable PROBLEMS Type Condition ICD9-CM Code VDC00-FC Code Onset Dates Condition S tatus SNOMED Code Problem Edema R60.9 Active 497419003 Problem Morbid obesity E66.01 Active 69651 6002 Problem Metabolic syndrome E88.81 Active 2 59026442 Problem Renal insufficiency N28.9 Active 410655174 Problem Vitamin D deficiency E55.9 Active 50218944 Problem Severe episode of recurrent major depressive disorder, without psychotic features F33.2 Active 58244401 Problem DANIELA (generalized anxiety disorder) F41.1 Active 41311125 Problem Mixed obsessional thoughts and acts F42.2 Active 42052093 Problem Chronic fatigue R53.82 Active 8422 9001 Problem Other chronic pain G89.29 Active 8 1615698 Problem Borderline personality disorder F60.3 Active 34011923 Problem Attachment disorder F94.1 Active Problem Sciatica, right side M54.31 Active 813974427880776 Problem Insomnia G47.00 Active 048344220 Problem Anxiety F41.9 Active 94788581 Problem BMI 45.0-49.9, adult Z68.42 Active 816793555 Problem Hyperlipemia E78.5 Active 9028541 4 Problem Benign essential hypertension I10 Active 0955556 Problem Callous ulcer, limited to breakdown of skin L98.49 1 Active Problem Hammer toe of right foot M20.41 Activ e 709274535 Problem Hammer toe of second toe of right foot M20.41 Active 380998780 Problem Falling episodes R29.6 Active 161 945278 ALLERGIES No Information ENCOUNTERS Encounter Location Date Diagnosis [facility] [address] [facility] [id number] [place] [address] Dec, [facility] [address] [place] [id number] [address] [place] [phone] Dec, [facility] [address] [id number][place] [id number] Dec, [facility] [address] [facility] [id number] [address] [place] [address] Dec, [facility] [address] [facility] [id number] [address] [place] [phone] Nov, [facility] [address] [facility] [id number] [address] [place] [address] Nov, [facility] [address] [facility] [id number] [address] [place] [phone] October, [facility] [address] [facility] [id number] [address] [place] [phone] October, DANIELA (generalized anxiety dis order) F41.1 ; Severe episode of recurrent major depressive disorder, without psychotic features F33.2 ; Mixed obsessional thoughts and acts F42.2 and Borderline personality disorder F60.[address] [id number] [address] October, [facility] [address] [id number][place] [id number] October, [facility] [address] [facility] [id number] [place] [address] October, [facility] [address] [id number][place] [id number] Sep, [facility] [address] [facility] [id number] [address] [place] [phone] Sep, [facility] [address] [id number], [place] [id number] Sep, [facility] [address] [facility] [id number] [address] [place] [address] Sep, [facility] [address] [facility] [id number] [address] [place] [phone] 24 Sep, 2019 [facility] [address] [facility] [id number] [address] [place] [address] Sep, [facility] [address] [facility] [id number] [address] [place] [phone] Sep, [facility] [address] [facility] [id number] [address] [place] [address] Sep, DANIELA (generalized anxiety dis order) F41.1 ; Severe episode of recurrent major depressive disorder, without psychotic features F33.2 ; Mixed obsessional thoughts and acts F42.2 and Borderline personality disorder F60.3 [facility] [address] [place] [address] [facility] [id number] [place] [address] 13 Sep, 2019 Severe episode of recurrent major depres sive disorder, without psychotic features F33.2 [facility] [address] [id number][place] [id number] Sep, [facility] [address] [id number][place] [id number] Sep, [facility] [id number] [place] [address] [id number] Sep, Benign essential hypertension I10 [facility] [address] [facility] [id number] [address] [place] [phone] 08 Sep, 2019 [facility] [address] [facility] [id number] [address] [place] [address] Sep, [facility] [address] [facility] [id number] [address] [place] [phone] Sep, [facility] [address] [facility] [id number] [address] [place] [address] Sep, DANIELA (generalized anxiety dis order) F41.1 ; Severe episode of recurrent major depressive disorder, without psychotic features F33.2 ; Mixed obsessional thoughts and acts F42.2 and Borderline personality disorder F60.3 [facility] [address] [id number][place] [id number] 31 Aug, 2019 [facility] [address] [facility] [id number] [address] [place] [phone] Aug, [facility] [id number] [place] [address] [id number] Aug, [facility] [address] [facility] [id number] [address] [place] [address] Aug, [facility] [id number] [place] [address] [id number] 17 Aug, 2019 Dizzy R42 ; Weight gain R63.5 ; Benign e ssential hypertension I10 ; Falling episodes R29.6 and History of gastric bypass Z98.84 [facility] [address] [place] [id number] [address] [place] [address] 14 Aug, 2019 [facility] [address] [place] [id number] [address] [place] [phone] 13 Aug, 2019 [facility] [address] [place] [address] 11 Aug, 2019 DANIELA (generalized anxiety dis order) F41.1 ; Severe episode of recurrent major depressive disorder, without psychotic features F33.2 ; Mixed obsessional thoughts and acts F42.2 and Borderline personality disorder F60.3 [facility] [address] [id number][place] [id number] Aug, [facility] [address] [id number][place] [id number] Aug, [facility] [address] [facility] [id number] [address] [place] [phone] 09 Aug, [address] [facility] [address] [id number], [place] [id number] 06 Aug, 2019 [facility] [id number] [place] [address] [id number] 06 Aug, 2019 [facility] [address] [facility] [id number] [address] [place] [address] Aug, [place] [address] [id number], [place] [id number] Aug, Severe episode of recurrent major depres sive disorder, without psychotic features F33.2 ; Borderline personality disorder F60.3 ; Anxiety F41.9 and Attachment disorder F94.1 [facility] [address] [facility] [id number] [address] [place] [phone] Jul, [facility] [address] [facility] [id number] [address] [place] [phone] Jul, DANIELA (generalized anxiety dis order) F41.1 ; Severe episode of recurrent major depressive disorder, without psychotic features F33.2 ; Mixed obsessional thoughts and acts F42.2 and Borderline personality disorder F60.3 [id number] [place] [address] [id number] Jul, [facility] [address] [place] [phone] Jul, [facility] [address] [place] [id number] [address] [place] [phone] Jul, [facility] [address] [place] [phone] Jul, [facility] [address] [place] [id number] [address] [place] [phone] Jul, [facility] [address] [facility] [id number] [address] [place] [phone] Jun, DANIELA (generalized anxiety dis order) F41.1 ; Severe episode of recurrent major depressive disorder, without psychotic features F33.2 ; Mixed obsessional thoughts and acts F42.2 and Borderline personality disorder F60.[address] [id number], [place] [id number] Jun, [id number] [place] [address] [id number] Jun, [facility] [address] [place] [phone] Jun, [facility] [address] [facility] [id number] [address] [place] [phone] Jun, DANIELA (generalized anxiety dis order) F41.1 ; Severe episode of recurrent major depressive disorder, without psychotic features F33.2 ; Mixed obsessional thoughts and acts F42.2 and Borderline personality disorder F60.3 [facility] [address] [id number], [place] [id number] Jun, [facility] [address] [id number], [place] [id number] Jun, [facility] [id number] [place] [address] [id number] Jun, [facility] [id number], [place] [id number] Jun, Benign essential hypertension I10 ; Morb id obesity E66.01 ; Severe episode of recurrent major depressive disorder, without psychotic features F33.2 ; Excess skin L98.7 and Hyperlipemia E78.5 [place] [address] [facility] [id number] [address] [place] [phone] Jun, [facility] [address] [facility] [id number] [address] [place] [phone] May, [place] [address] [place] [id number] [address] [place] [phone] May, Severe episode of recurrent major depressive disorder, without psychotic features F33.2 ; Mixed obsessional thoughts and acts F42.2 ; DANIELA (generalized anxiety disorder) F41.1 and Borderline personality disorder F60.3 [facility] [address] [facility] [id number] [address] [place] [phone] May, [facility] [address] [facility] [id number] [address] [place] [phone] May, DANIELA (generalized anxiety dis order) F41.1 ; Severe episode of recurrent major depressive disorder, without psychotic features F33.2 ; Mixed obsessional thoughts and acts F42.2 and Borderline personality disorder F60.3 [facility] [address] [facility] [id number] [address] [place] [phone] May, [facility] [address] [facility] [id number] [address] [place] [phone] May, [facility] [address] [facility] [id number] [address] [place] [phone] May, Severe episode of recurrent major depressive disorder, without psychotic features F33.2 ; Mixed obsessional thoughts and acts F42.2 ; Borderline personality disorder F60.3 and DANIELA (generalized anxiety disorder) F41.1 [facility] [address] [facility] [id number] [address] [place] [id number] May, Caries K02.[address] [facility] [address] [id number], [place] [id number] May, Benign essential hypertension I10 [facility] [address] [id number], [place] [id number] Apr, [facility] [address] [id number], [place] [id number] Apr, Benign essential hypertension I10 [facility] [address] [facility] [id number] [address] [place] [phone] Apr, Borderline personality disor romero F60.3 ; DANIELA (generalized anxiety disorder) F41.1 ; Mixed obsessional thoughts and acts F42.2 and Severe episode of recurrent major depressive disorder, without psychotic features F33.2 [facility] [address] [id number], [place] [id number] Apr, [facility] [address] [id number], [place] [id number] Apr, Benign essential hypertension I10 [facility] [address] [facility] [id number] [address] [place] [phone] Apr, Severe episode of recurrent major depressive disorder, without psychotic features F33.2 ; DANIELA (generalized anxiety disorder) F41.1 ; Borderline personality disorder F60.3 and Mixed obsessional thoughts and acts F42.2 [facility] [address] [id number] [address] [place] [address] [id number] Apr, Dental examination Z01.20 [facility] [address] [id number] [address] [place] [address] [id number] Apr, Caries K02.9 and Dental exam ination Z01.20 [facility] [address] [facility] [id number] [address] [place] [phone] Apr, DANIELA (generalized anxiety dis order) F41.1 ; Severe episode of recurrent major depressive disorder, without psychotic features F33.2 ; Mixed obsessional thoughts and acts F42.2 and Borderline personality disorder F60.3 [facility] [address] [facility] [id number] [address] [place] [id number] Mar, Severe episode of recurrent major depressive disorder, without psychotic features F33.2 ; Mixed obsessional thoughts and acts F42.2 ; Borderline personality disorder F60.3 and DANIELA (generalized anxiety disorder) F41.1 [facility] [address] [facility] [id number] [address] [place] [phone] Mar, Severe episode of recurrent major depressive disorder, without psychotic features F33.2 ; Mixed obsessional thoughts and acts F42.2 ; DANIELA (generalized anxiety disorder) F41.1 and Borderline personality disorder F60.3 [facility] [address] [facility] [id number] [address] [place] [address] [id number] Mar, Dental examination Z01.20 an d Caries K02.9 [place] [id number] [facility] [id number] [place] [address] [id number] Mar, Benign essential hypertension I10 and Fa lling episodes R29.6 [facility] [address] [facility] [id number] [address] [place] [phone] Mar, [facility] [address] [facility] [id number] [address] [place] [phone] Mar, Severe episode of recurrent major depressive disorder, without psychotic features F33.2 ; Mixed obsessional thoughts and acts F42.2 ; Borderline personality disorder F60.3 and DANIELA (generalized anxiety disorder) F41.1 [facility] [address] [facility] [id number] [address] [place] [phone] Mar, [facility] [address] [facility] [id number] [address] [place] [phone] Mar, [address] [id number], [place] [id number] Mar, [facility] [address] [facility] [id number] [address] [place] [phone] Mar, Severe episode of recurrent major depressive disorder, without psychotic features F33.2 ; Mixed obsessional thoughts and acts F42.2 ; Borderline personality disorder F60.3 and DANIELA (generalized anxiety disorder) F41.1 [place] [address] [place] [id number] [address] [place] [phone] Mar, [facility] [address] [facility] [id number] [address] [place] [address] [id number] 30 Feb, 2019 Dental examination Z01.20 an d Periodontitis K05.30 [facility] [address] [place] [id number] [address] [place] [phone] Feb, DANIELA (generalized anxiety dis order) F41.1 ; Severe episode of recurrent major depressive disorder, without psychotic features F33.2 ; Mixed obsessional thoughts and acts F42.2 and Borderline personality disorder F60.[address] [id number], [place] [id number] Feb, Acute pain of right knee M25.561 ; Fall, initial encounter W19.XXXA ; Benign essential hypertension I10 and Edema R60.9 [facility] [address] [facility] [id number] [address] [place] [phone] Feb, [facility] [address] [facility] [id number] [address] [place] [phone] Feb, DANIELA (generalized anxiety dis order) F41.1 ; Severe episode of recurrent major depressive disorder, without psychotic features F33.2 ; Mixed obsessional thoughts and acts F42.2 and Borderline personality disorder F60.3 [place] [id number] [facility] [id number] [address] [place] [phone] Feb, [facility] [address] [facility] [id number] [address] [place] [phone] Jan, [facility] [address] [facility] [id number] [address] [place] [phone] Jan, [facility] [address] [facility] [id number] [address] [place] [phone] Jan, [facility] [id number] [place] [address] [id number] Jan, Callus of heel L84 ; Fissure in skin R23 .4 and Hammer toe of second toe of right foot M20.41 [facility] [id number] [place] [address] [id number] Jan, [facility] [address] [facility] [id number] [address] [place] [id number] Jan, [place] [address] [facility] [id number] [address] [place] [address] Jan, [place] [address] [facility] [id number] [address] [place] [phone] Jan, Severe episode of recurrent major depressive disorder, without psychotic features F33.2 ; DANIELA (generalized anxiety disorder) F41.1 ; Mixed obsessional thoughts and acts F42.2 and Borderline personality disorder F60.3 [facility] [address] [facility] [id number] [address] [place] [phone] Jan, [facility] [address] [id number], [place] [id number] Jan, Benign essential hypertension I10 [facility] [address] [id number], [place] [id number] Dec, Callous ulcer, limited to breakdown of s kin L98.491 and Morbid obesity E66.01 [facility] [address] [facility] [id number] [address] [place] [phone] Dec, [facility] [address] [facility] [id number] [address] [place] [id number] Dec, [facility] [address] [facility] [id number] [address] [place] [phone] Dec, [facility] [address] [facility] [id number] [address] [place] [phone] Dec, [facility] [address] [facility] [id number] [address] [place] [phone] Dec, Severe episode of recurrent major depressive disorder, without psychotic features F33.2 [facility] [address] [facility] [id number] [address] [place] [phone] Dec, DANIELA (generalized anxiety dis order) F41.1 ; Severe episode of recurrent major depressive disorder, without psychotic features F33.2 ; Mixed obsessional thoughts and acts F42.2 and Dependent personality disorder F60.[address] [place] [address] [id number], [place] [id number] Dec, Morbid obesity E66.01 [facility] [address] [facility] [id number] [address] [place] [phone] Dec, [facility] [address] [facility] [id number] [address] [place] [phone] Dec, [facility] [address] [id number] [address] Nov, [address] [id number], [place] [id number] Nov, [facility] [address] [facility] [id number] [address] [place] [phone] Nov, [facility] [address] [facility] [id number] [address] [place] [phone] Nov, [facility] [address] [facility] [id number] [address] [place] [phone] 13 Nov, 2018 DANIELA (generalized anxiety dis order) F41.1 ; Severe episode of recurrent major depressive disorder, without psychotic features F33.2 ; Mixed obsessional thoughts and acts F42.2 and Dependent personality disorder F60.[address] [place] [address] [id number], [place] [id number] Nov, Morbid obesity E66.01 [facility] [address] [facility] [id number] [address] [place] [phone] Nov, [place] [address] [facility] [id number] [address] [place] [phone] Nov, DANIELA (generalized anxiety dis order) F41.1 ; Mixed obsessional thoughts and acts F42.2 ; Severe episode of recurrent major depressive disorder, without psychotic features F33.2 and Dependent personality disorder F60.[address] [place] [address] [id number], [place] [id number] October, Morbid obesity E66.[address] [place] [address] [id number], [place] [id number] October, Benign essential hypertension I10 and Mo rbid obesity E66.01 [facility] [address] [id number], [place] [id number] October, [facility] [address] [facility] [id number] [address] [place] [phone] October, Severe episode of recurrent major depressive disorder, without psychotic features F33.2 [facility] [address] [id number], [place] [id number] October, Morbid obesity E66.[address] [place] [address] [id number], [place] [id number] October, [facility] [address] [facility] [id number] [address] [place] [phone] October, Severe episode of recurrent major depressive disorder, without psychotic features F33.2 ; DANIELA (generalized anxiety disorder) F41.1 ; Mixed obsessional thoughts and acts F42.2 and Dependent personality disorder F60.[address] [id number][place] [id number] October, Morbid obesity E66.01 [facility] [address] [facility] [id number] [address] [place] [id number] Sep, Dental examination Z01.[address] [id number], [place] [id number] Sep, [facility] [address] [facility] [id number] [address] [place] [id number] Sep, Sore in mouth K13.79 and Mor bid obesity E66.01 [facility] [address] [facility] [id number] [address] [place] [id number] Sep, Dental examination Z01.20 [facility] [address] [place] [id number] [address] [place] [id number] Sep, Anxiety disorder, unspecifie d F41.[address] [id number][place] [id number] Sep, Mouth ulcer K12.[address] [id number][place] [id number] Sep, Morbid obesity E66.[address] [id number][place] [id number] Sep, Allergic rhinitis, unspecified seasonali ty, unspecified trigger J30.9 and Shortness of breath R06.[address] [id number][place] [id number] Sep, 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 [id number][place] [id number] Aug, Mouth abscess K12.2 ; Mouth ulcer K12.1 ; Bloating R14.0 and Morbid obesity E66.[address] [id number], [place] [id number] Aug, [facility] Jama [facility] [id number][place] [id number] Aug, [facility] [id number], [place] [id number] Jul, Major depressive disorder, recurrent, mo derate F33.1 ; Abscess of arm, left L02.414 ; BMI 45.0-49.9, adult Z68.42 and Morbid obesity E66.01 [facility] OROSCOBROWNLEE [address] [place] [address] AVE [id number], [place] [id number] Jul, [facility] [address] [id number], [place] [id number] Jul, [facility] [address] [id number], [place] [id number] Jun, Pain in right knee M25.561 and Other chr onic pain G89.29 [facility] [address] [id number], [place] [id number] Jun, Benign essential hypertension I10 ; BMI 45.0-49.9, adult Z68.42 ; Morbid obesity E66.01 ; Vitamin D deficiency E55.9 ; Insomnia G47.00 ; Dependent personality disorder F60.7 ; Edema R60.9 ; Recurrent major depressive disorder, in partial remission F33.41 ; Chronic fatigue R53.82 ; Acute pain of right knee M25.561 ; Metabolic syndrome E88.81 and Irritable mood R45.4 [facility] [address] [facility] [id number] [address] [place] [phone] Jun, [facility] [address] [id number], [place] [id number] Jun, Irritable mood R45.4 [facility] [address] [place] [id number] [address] [place] [phone] May, [facility] [address] [place] [id number] [address] [place] [phone] May, [facility] [address] [facility] [id number] [address] [place] [phone] May, Recurrent major depressive d isorder, in partial remission F33.41 ; Mixed obsessional thoughts and acts F42.2 ; Dependent personality disorder F60.7 and BMI 45.0-49.9, adult Z68.42 [facility] [address] [facility] [id number] [address] [place] [phone] Apr, [facility] [address] [facility] [id number] [address] [place] [id number] Apr, [facility] [address] [facility] [id number] [address] [place] [phone] Apr, [facility] [address] [facility] [id number] [address] [place] [phone] Apr, [facility] [address] [facility] [id number] [address] [place] [phone] Mar, Mixed obsessional thoughts a nd acts F42.2 ; Recurrent major depressive disorder, in partial remission F33.41 ; DANIELA (generalized anxiety disorder) F41.1 and BMI 45.0-49.9, adult Z68.42 [facility] [address] [id number], [place] [id number] Mar, [facility] [address] [id number], [place] [id number] Mar, BMI 45.0-49.9, adult Z68.42 ; Instabilit y of right knee joint M25.361 and Rash R21 [facility] [address] [facility] [id number] [address] [place] [address] Jan, Recurrent major depressive d isorder, in partial remission F33.41 ; Mixed obsessional thoughts and acts F42.2 and BMI 45.0-49.9, adult Z68.42 [facility] [address] [id number], [place] [id number] Jan, [facility]ITAL[facility]idBiologicsBROWNLE[facility] [address] [id number], [place] [id number] Jan, Benign essential hypertension I10 ; BMI 45.0-49.9, adult Z68.42 ; Metabolic syndrome E88.81 and Allergic rhinitis, unspecified seasonality, unspecified trigger J30.9 [facility] [address] [facility] [id number] [address] [place] [phone] Dec, DANIELA (generalized anxiety dis order) F41.1 and Depressive disorder, not elsewhere classified F32.9 [facility]ITALAvidBiologicsBROWN[facility] [address] [id number], [place] [id number] Dec, Recurrent major depressive disorder, in partial remission F33.41 [facility] [address] [id number], [place] [id number] Dec, [facility]ologicsBR[facility] [address] [id number], [place] [id number] Nov, [facility] [address] [id number], [place] [id number] Nov, Recurrent major depressive disorder, in partial remission F33.41 [facility] [address] [facility] [id number] [address] [place] [address] Nov, Recurrent major depressive d isorder, in partial remission F33.41 ; Mixed obsessional thoughts and acts F42.2 ; DANIELA (generalized anxiety disorder) F41.1 and BMI 45.0-49.9, adult Z68.42 [facility] [address] [id number], [place] [id number] Nov, [facility] [address] [id number], [place] [id number] Nov, Other conjunctivitis of both eyes H10.89 and Sciatica, right side M54.31 [facility] [address] [id number], [place] [id number] Nov, [facility] [address] [id number], [place] [id number] Nov, [facility] [address] [id number], [place] [id number] October, [facility] [address] [id number], [place] [id number] October, [facility] [address] [facility] [id number] [place], [place] [address] October, BMI 45.0-49.9, adult Z68.42 ; Mixed obsessional thoughts and acts F42.2 ; Recurrent major depressive disorder, in partial remission F33.41 and DANIELA (generalized anxiety disorder) F41.1 [facility] [address] [id number], [place] [id number] October, Benign essential hypertension I10 ; Morb id obesity E66.01 and BMI 45.0-49.9, adult Z68.42 [facility] [address] [id number], [place] [id number] Sep, [facility] [address] [id number], [place] [id number] Sep, [facility] [address] [id number], [place] [id number] Sep, [facility] [place] [address] [place] [address] AVE [id number], [place] [id number] Sep, Hospital discharge follow-up Z09 ; Aller gic rhinitis, unspecified seasonality, unspecified trigger J30.9 and Shortness of breath R06.02 [facility] [address] [id number], [place] [id number] Sep, Recurrent major depressive disorder, in partial remission F33.41 [facility] [address] [id number], [place] [id number] Aug, Irritable mood R45.4 [facility] [address] [facility] [id number] [place] [address] Aug, [facility] [address] [id number], [place] [id number] 22 Feb, 2018 Benign essential hypertension I10 ; Robert a R60.9 and Impacted cerumen of left ear H61.22 [place] [id number] [facility] [id number] [address] [place] [phone] Jul, Major depression F32.9 ; Rec urrent major depressive disorder, in partial remission F33.41 and Anxiety F41.9 [place] [address] [facility] [id number] [address] [place] [address] Jun, Major depression F32.9 ; Rec urrent major depressive disorder, in partial remission F33.[address] [facility] [address] [id number], [place] [id number] Jun, Major depression F32.9 ; Morbid obesity E66.01 ; Irritable mood R45.4 ; Hand weakness R29.898 and Vitamin D deficiency E55.9 [facility] [id number] [place] [address] [id number] Jun, [facility] [id number] [place] [address] [id number] May, Major depression F32.9 [place] [address] [facility] [id number] [address] [place] [phone] May, Major depression F32.9 [facility] [address] [id number], [place] [id number] May, BMI 50.0-59.9, adult Z68.43 ; Major depr ession F32.9 ; Anxiety F41.9 ; Hypertrophic toenail L60.2 and Pain of left great toe M79.675 [facility] [address] [id number], [place] [id number] May, Recurrent major depressive disorder, in partial remission F33.41 [place] [address] [facility] [id number] [address] [place] [address] Apr, [facility] [address] [id number] [place] [address] [id number] Apr, [facility] [address] [facility] [id number] [address] [place] [address] Apr, Major depression F32.9 [facility] [address] [id number], [place] [id number] Apr, Severe episode of recurrent major depres sive disorder, without psychotic features F33.2 ; Anxiety F41.9 and Insomnia G47.00 [facility] [address] [id number], [place] [id number] Apr, [facility] [address] [facility] [id number] [address] [place] [id number] Apr, [facility] [id number] [place] [address] [id number] Apr, [facility] [address] [id number], [place] [id number] Mar, [facility] [address] [id number], [place] [id number] Mar, Allergic conjunctivitis of both eyes H10 .13 [facility] [address] [facility] [id number] [address] [place] [address] Mar, Major depression F32.9 [facility] [address] [id number], [place] [id number] Mar, Metabolic syndrome E88.81 ; History of g astric bypass Z98.890 ; Benign essential hypertension I10 ; Allergic conjunctivitis of both eyes H10.13 and Morbid obesity E66.01 [facility] [address] [facility] [id number] [address] [place] [phone] Mar, Major depression F32.9 [facility] [address] [id number], [place] [id number] Feb, [facility] [address] [facility] [id number] [address] [place] [address] Feb, Major depression F32.9 [facility] [address] [id number], [place] [id number] Feb, Subacute maxillary sinusitis J01.00 and Bronchitis J40 [place] [address] [place] [id number] [address] [place] [address] Feb, Major depressive disorder, r ecurrent, moderate F33.1 [facility] [address] [id number], [place] [id number] Jan, [facility] [id number] [place] [address] [id number] Jan, Acute non-recurrent maxillary sinusitis J01.00 and Skin tag L91.8 [facility] [address] [id number], [place] [id number] Jan, Cough R05 and Sinus congestion R09.81 [facility] [address] [facility] [address] [id number], [place] [id number] Jan, [facility] [id number] [place] [address] [id number] Jan, Benign essential hypertension I10 ; Hist ory of gastric bypass Z98.890 and Nausea and vomiting in adult R11.2 [place] [address] [place] [id number] [address] [place] [phone] Jan, Major depressive disorder, r ecurrent, moderate F33.1 [place] [address] [place] [id number] [address] [place] [address] Dec, Insomnia G47.00 ; Recurrent major depressive disorder, in partial remission F33.41 and Morbid obesity E66.01 [facility] [address] [id number], [place] [id number] Dec, [facility] [address] [id number], [place] [id number] Dec, Chronic bacterial conjunctivitis of left eye H10.402 [facility] [address] [id number], [place] [id number] Nov, [facility] [address] [id number], [place] [id number] 26 Nov, 2016 Dental examination Z01.[address] [id number], [place] [id number] Nov, Benign essential hypertension I10 ; Hist ory of gastric bypass Z98.890 and Nausea and vomiting in adult R11.2 [place] [id number] [place] [id number] 13 Nov, 2016 Major depressive disorder, r ecurrent, moderate F33.1 ; Generalized anxiety disorder F41.1 and Insomnia due to other mental disorder F51.[address] [phone] Nov, Recurrent major depressive d isorder, in partial remission F33.41 ; Insomnia G47.00 and Morbid obesity E66.01 [facility] [address] [facility] [id number] [id number] October, Abscess of left arm L02.414 [place] [id number] [address] [place] [address] October, Morbid obesity E66.01 ; Lida r depression F32.9 and Recurrent major depressive disorder, in partial remission F33.[address] [id number], [place] [id number] Sep, Benign essential hypertension I10 ; Morb id obesity E66.01 ; S/P gastric bypass Z98.84 ; Abscess L02.91 and Chronic bacterial conjunctivitis of left eye H10.[address] [id number] [place] [address] [id number] Sep, Dental examination Z01.20 [place] [id number] [address] [place] [address] Sep, Morbid obesity E66.01 ; Lida r depression F32.9 and Recurrent major depressive disorder, in partial remission F33.41 [place] [id number] [address] [place] [address] Jul, [place] [address] [facility] [id number] [address] [place] [phone] Jul, Major depressive disorder, r ecurrent, moderate F33.1 [place] [address] [facility] [id number] [address] [place] [phone] Jul, Major depressive disorder, r ecurrent, moderate F33.1 and Generalized anxiety disorder F41.[address] [place] [address] [id number], [place] [id number] Jul, Cough R05 [place] [address] [facility] [id number] [address] [place] [address] Jul, Morbid obesity E66.01 ; Lida r depression F32.9 and Recurrent major depressive disorder, in partial remission F33.41 [facility] [address] [id number], [place] [id number] Jul, [facility] [id number] [place] [address] [id number] Jul, [facility] [place] [id number] [place] [address] [id number] Jul, Gastroenteritis K52.[address] [facility] [id number] [place] [address] [id number] Jun, Acute bacterial conjunctivitis of left e ye H10.32 [place] [address] [facility] [id number] [address] [place] [phone] Jun, [place] [address] [facility] [id number] [address] [place] [address] Jun, Recurrent major depressive d isorder, in partial remission F33.41 [place] [address] [facility] [id number] [address] [place] [address] May, Major depression F32.9 and M orbid obesity E66.01 [place] [address] [place] [id number] [address] [place] [phone] May, [facility] [address] [facility] [address] [id number] [place] [address] [id number] May, Thrush B37.0 [facility] [address] [facility] [id number] [address] [place] [phone] Apr, Major depressive disorder, r ecurrent, moderate F33.1 [facility] [address] [facility] [id number] [address] [place] [phone] Apr, Insomnia G47.00 ; Major depr ession F32.9 and Recurrent major depressive disorder, in partial remission F33.41 [place] [address] [facility] [id number] [address] [place] [phone] Apr, [place] [address] [facility] [id number] [address] [place] [address] Apr, Major depression F32.9 and R ecurrent major depressive disorder, in partial remission F33.[address] [place] [id number] [place] [address] [id number] Mar, Benign essential hypertension I10 ; Morb id obesity E66.01 ; Impacted cerumen of both ears H61.23 ; Laceration of finger of right hand, initial encounter S61.219A and Encounter for immunization Z23 [facility] [address] [facility] [id number] [address] [place] [id number] 17 Mar, 2016 [facility] [address] [facility] [id number] [address] [place] [phone] Mar, [facility] [address] [facility] [id number] [address] [place] [phone] Mar, [facility] [address] [place] [address] [id number] [place] [address] [id number] 29 Feb, 2016 Nausea R11.0 ; Blood in the stool K92.1 and Benign essential hypertension I10 [facility] [address] [facility] [id number] [address] [place] [phone] Feb, Major depression F32.9 and R ecurrent major depressive disorder, in partial remission F33.41 [facility] [address] [id number], [place] [id number] Feb, [facility] [address] [id number], [place] [id number] Feb, Recurrent major depressive disorder, in partial remission F33.41 [facility] [address] [id number], KS [id number] Jan, [facility] [address] [id number], [place] [id number] Jan, Benign essential hypertension I10 ; Robert a R60.9 and Hyperlipidemia, unspecified hyperlipidemia type E78.5 [facility] [address] [id number], [place] [id number] Jan, Recurrent major depressive disorder, in partial remission F33.41 [facility] [place] [address] [id number] [place] [id number] Jan, [facility] [address] [id number], [place] [id number] Jan, [facility] [address] [id number], [place] [id number] Jan, [facility] [address] [facility] [id number] [address] [place] [phone] Jan, [facility] [address] [facility] [id number] [address] [place] [phone] Dec, [facility] [address] [facility] [id number] [address] [place] [phone] Nov, [facility] [address] [facility] [id number] [address] [place] [phone] Nov, Major depression F32.9 [facility] [address] [facility] [id number] [address] [place] [id number] Nov, [facility] [address] [facility] [id number] [address] [place] [phone] Nov, [facility] [address] [facility] [id number] [address] [place] [phone] Nov, Major depressive disorder, r ecurrent episode, mild F33.[address] [facility] [address] [id number], [place] [id number] Nov, [address] [id number], [place] [id number] October, Left elbow pain M25.522 and Other season al allergic rhinitis J30.[address] [id number], [place] [id number] October, [facility] [address] [facility] [id number] [address] [place] [phone] October, Major depressive disorder, r ecurrent, moderate F33.1 [facility] [address] [facility] [id number] [address] [place] [phone] October, Major depression F32.9 [facility] [address] [facility] [id number] [address] [place] [phone] Sep, [place] or callus L84 and Onych omycosis B35.1 [facility] [address] [facility] [id number] [address] [place] [phone] Sep, Major depressive disorder, r ecurrent, moderate F33.1 [facility] [address] [facility] [id number] [address] [place] [phone] Sep, Major depression F32.9 [facility] [address] [facility] [id number] [address] [place] [phone] Sep, Moderate episode of recurren t major depressive disorder F33.[address] [id number], [place] [id number] Sep, Muscle strain T14.8 [facility] [address] [facility] [id number] [address] [place] [id number] Aug, Major depression F32.9 [facility] [address] [facility] [id number] [address] [place] [phone] Aug, Major depression F32.9 [facility] [address] [facility] [id number] [address] [place] [address] Jul, Morbid obesity E66.01 and Ma cora depression F32.9 [facility] [address] [facility] [id number] [address] [place] [phone] Jul, Depression, major, recurrent , moderate F33.[address] [id number], [place] [id number] Jul, [facility] [address] [facility] [id number] [address] [place] [id number] Jul, [facility] [address] [facility] [id number] [address] [place] [id number] Jul, Major depression F32.9 and M orbid obesity E66.[address] [place] [id number] [place] [id number] Jul, Type II diabetes mellitus E11.9 ; Callus of foot L84 ; Benign essential hypertension I10 and Renal insufficiency N28.9 [facility] [address] [facility] [id number] [address] [place] [id number] 09 Jul, 2015 Depression, major, recurrent , moderate F33.1 [facility] [address] [facility] [id number] [address] [place] [phone] Jul, Major depression F32.9 [facility] [address] [facility] [id number] [address] [place] [id number] Jul, [facility] [address] [facility] [id number] [address] [place] [id number] Jun, Major depression F32.9 [facility] [address] [facility] [id number] [address] [place] [phone] Jun, Major depressive disorder, r ecurrent, moderate F33.1 [place] [address] [facility] [id number] [address] [place] [id number] 08 Jun, 2015 [place] [address] [facility] [id number] [address] [place] [id number] 08 Jun, 2015 Major depressive disorder, r ecurrent, moderate F33.1 and Major depression F32.[id number] [place] [address] [id number] Jun, Type II diabetes mellitus E11.9 [place] [address] [facility] [id number] [address] [place] [id number] 04 Jun, 2015 Depression, major, recurrent , moderate F33.1 [place] [address] [facility] [id number] [address] [place] [phone] May, Major depressive disorder, r ecurrent, moderate F33.1 [place] [address] [facility] [id number] [address] [place] [id number] May, [id number] [place] [address] [id number] May, Edema R60.9 [place] [id number] [address] [place] [phone] 17 May, 2015 Insomnia G47.00 and Major de pression F32.[address] [id number] [place] [address] [id number] 15 May, 2015 Morbid obesity E66.01 ; Edema R60.9 ; Sh ortness of breath R06.02 ; Benign essential hypertension I10 and Renal insufficiency N28.[id number] [place] [address] [id number] 14 May, 2015 Hyperlipemia 272.4 and Renal insufficien cy N28.9 [place] [address] [facility] [id number] [address] [place] [phone] Apr, Major depression F32.9 [place] [address] [address] [facility] [id number] [address] [place] [address] Apr, [facility] [address] [facility] [id number] [address] [place] [address] Apr, Major depressive disorder, r ecurrent, moderate F33.1 [facility] [address] [id number] [id number] Apr, Type II diabetes mellitus E11.9 ; Benign essential hypertension I10 ; Edema R60.9 and Renal insufficiency N28.9 [place] [address] [address] [facility] [id number] [address] [place] [address] Mar, Major depressive disorder, r ecurrent, moderate F33.1 [place] [address] [address] [facility] [id number] [address] [place] [address] Mar, [place] [address] [address] [facility] [id number] [address] [place] [address] Mar, Major depression F32.9 [facility] [id number] [place] [id number] Mar, Morbid obesity E66.01 ; Benign essential hypertension I10 and Type II diabetes mellitus E11.9 [place] [address] [address] [facility] [id number] [address] [place] [address] Feb, Major depressive disorder, r ecurrent, moderate F33.1 [place] [address] [facility] [id number] [address] [place] [address] Feb, Major depressive disorder, r ecurrent episode, in partial or unspecified remission 296.35 ; Anxiety state, unspecified 300.00 and Morbid obesity 278.01 [place] [address] [address] [facility] [id number] [address] [place] [address] Feb, [facility] [id number] [place] [id number] Feb, Vomiting 787.03 and Viral syndrome 079.9 9 [place] [address] [address] [facility] [id number] [address] [place] [address] Feb, Major depression, recurrent 296.30 ; Generalized anxiety disorder 300.02 and No condition on Kincaid II V71.[address] [id number] [id number] Feb, Skin tag 701.9 [facility] [address] [facility] [id number] [address] [place] [address] Feb, [facility] [address] [place] [id number] [address] [place] [address] Jan, Depression, major, recurrent , moderate 296.[address] [id number] [id number] Jan, Nausea and vomiting 787.01 ; Rib pain on right side 786.50 and Fall on or from sidewalk curb E880.1 [facility] [address] [facility] [id number] [address] [place] [address] Jan, [facility] [address] [place] [id number] [address] [place] [address] Jan, Major depressive disorder, r ecurrent episode, in partial or unspecified remission 296.35 and Anxiety state, unspecified 300.[address] [id number] [id number] Jan, [facility] [address] [facility] [id number] [address] [place] [address] Jan, Depression, major, recurrent , moderate 296.32 [facility] [address] [facility] [id number] [address] [place] [address] Jan, Major depression, recurrent 296.30 ; No condition on Kincaid II V71.09 and No condition on axis III V71.[address] [id number] [id number] Jan, Drug-induced nausea and vomiting 787.01 [facility] [address] [facility] [id number] [address] [place] [address] Jan, Depression, major, recurrent , moderate 296.[address] [id number] [address] [place] [address] Dec, Depression, major, recurrent , moderate 296.32 [facility] [id number] [place] [id number] Dec, Morbid obesity 278.01 ; Metabolic syndro me 277.7 ; Hyperlipemia 272.4 ; Benign essential hypertension 401.1 ; Dietary counseling V65.3 ; Exercise counseling V65.41 and Inflamed skin tag 701.9 [place] [id number] [address] [place] [address] Dec, Depression, major, recurrent , moderate 296.[address] [address] Dec, [address] [address] Dec, Major depression, recurrent 296.30 ; Anxiety, generalized 300.02 and No condition on Kincaid II V71.09 [place] [id number] [address] [place] [address] Dec, Depression, major, recurrent , moderate 296.32 [place] [id number] [address] [place] [address] Dec, Major depressive disorder, r ecurrent episode, moderate 296.32 [place] [id number] [address] [place] [address] Dec, Depression, major, recurrent , moderate 296.[address] [id number] [address] [place] [address] Dec, Depression, major, recurrent , moderate 296.[address] [address] Dec, Depression, major, recurrent , moderate 296.32 [place] [id number] [address] [place] [address] Dec, Depression, major, recurrent , moderate 296.32 [facility] [address] [place] [id number] [address] [place] [address] 17 Nov, 2014 Depression, major, recurrent , moderate 296.32 [facility] [address] [address] 16 Nov, 2014 Major depression 296.20 ; So cial phobia 300.23 and No condition on Kincaid II V71.09 [facility] [address] [address] Nov, Depression, major, recurrent , moderate 296.32 [facility] [address] [address] Nov, Major depressive disorder, r ecurrent episode, moderate 296.32 and Generalized anxiety disorder 300.02 [place] [address] [address] Nov, Depression, major, recurrent , moderate 296.32 [facility] [address] [address] Nov, Depression, major, recurrent , moderate 296.32 [place] [address] [address] October, Generalized anxiety disorder 300.02 ; No condition on Kincaid II V71.09 and Major depressive disorder, recurrent 296.30 [place] [address] [address] Sep, [facility] [address] [address] Sep, [facility] [address] [address] Aug, [facility] [address] [address] Aug, [facility] [address] [address] Aug, [facility] [address] [id number] [facility] [place] [address] 23 Aug, 2014 [facility] [address] [id number] [facility] [place] [address] 20 Aug, 2014 [facility] [address] [id number] [facility] [place] [address] 20 Aug, 2014 [facility] [address] [id number] [address] [place] [address], [place] [address] 20 Aug, 2014 [facility] [address] [id number] [facility] [place] [address] 20 Aug, 2014 [facility] [address] [id number] [address] [place] [address], [place] [address] 13 Aug, 2014 [facility] [address] [id number] [address] [place] [address], [place] [address] 13 Aug, 2014 [facility] [address] [id number] [address] [place] [address], [place] [address] 13 Aug, 2014 [facility] [address] [id number] [address] [place] [address], [place] [address] 13 Aug, 2014 [facility] [address] [id number] [address] [place] [address], [place] [address] 12 Aug, 2014 [facility] [address] [id number] [address] [place] [address], [place] [address] 12 Aug, 2014 [facility] [address] [id number] [address] [place] [address], [place] [address] 10 Aug, 2014 [facility] [address] [id number] [address] [place] [address], [place] [address] 10 Aug, 2014 [facility] [address] [id number] [address] [place] [address], [place] [address] 09 Aug, 2014 [facility] [address] [id number] [address] [place] [address], [place] [address] 09 Aug, 2014 [facility] [address] [id number] [address] [place] [address], [place] [address] Jul, [facility] [address] [id number] [address] [place] [address], [place] [address] Jul, [facility] [address] [id number] [address] [place] [address], [place] [address] Jul, [facility] [address] [id number] [address] [place] [address], [place] [address] Jul, [facility] [address] [id number] [address] [place] [address], [place] [address] Jul, [facility] [address] [id number] [address] [place] [address], [place] [address] Jul, [facility] [address] [id number] [address] [place] [address], [place] [address] Jun, [facility] [address] [id number] [address] [place] [address], [place] [address] Jun, [facility] [address] [id number] [address] [place] [address], [place] [address] Jun, [facility] [address] [id number] [address] [place] [address], [place] [address] Jun, [facility] [address] [id number] [address] [place] [address], [place] [address] Jun, [facility] [address] [id number] [address] [place] [address], [place] [address] Jun, [facility] [address] [id number] [address] [place] [address], [place] [address] Jun, [facility] [address] [id number] [address] [place] [address], [place] [address] Jun, [facility] [address] [id number] [address] [place] [address], [place] [address] Jun, [facility] [address] [id number] [address] [place] [address], [place] [address] Jun, [facility] [address] [id number] [address] [place] [address], [place] [address] Jun, [facility] [address] [id number] [address] [place] [address], [place] [address] Jun, [facility] [address] [id number] [place], [place] S [id number] Jun, [facility] [address] [id number] [address] [place] [address], [place] [address] Jun, [facility] [address] [id number] [address] [place] [address], [place] [address] Jun, [facility] [address] [id number] [address] [place] [address], [place] [address] Jun, [facility] [address] [id number] [address] [place] [address], [place] [address] May, [facility] [address] [id number] [address] [place] [address], [place] [address] May, [facility] [address] [id number] [address] [place] [address], [place] [address] May, [facility] [address] [id number] [address] [place] [address], [place] [address] May, [facility] [address] [id number] [address] [place] [address], [place] [address] Apr, [facility] [address] [id number] [address] [place] [address], [place] [address] Apr, [facility] [address] [id number] [address] [place] [address], [place] [address] Apr, [facility] [address] [id number] [address] [place] [address], [place] [address] Apr, [facility] [address] [id number] [address] [place] [address], [place] [address] Apr, [facility] [address] [id number] [address] [place] [address], [place] [address] Apr, [facility] [address] [id number] [address] [place] [address], [place] [address] Apr, [facility] [address] [id number] [address] [place] [address], [place] [address] Apr, [facility] [address] [id number] [address] [place] [address], [place] [address] Apr, [facility] [address] [id number] [address] [place] [address], [place] [address] Apr, [facility] [address] [id number] [address] [place] [address], [place] [address] Apr, [facility] [address] [id number] [address] [place] [address], [place] [address] Apr, [facility] [address] [id number] [address] [place] [address], [place] [address] Apr, [facility] [address] [id number] [address] [place] [address], [place] [address] Apr, [facility] [address] [id number] [address] [place] [address], [place] [address] Apr, [facility] [address] [id number] [address] [place] [address], [place] [address] Apr, [facility] [address] [id number] [address] [place] [address] Apr, [facility] [address] [id number] [address] [place] [address] Apr, [facility] [address] [id number] [address] [place] [address], [place] [address] Apr, [facility] [address] [id number] [address] [place] [address] Apr, [facility] [address] [id number] [address] [place] [address] Mar, [facility] [address] [id number] [address] [place] [address] Mar, [facility] [address] [id number] [address] [place] [address], [place] [address] Mar, [facility] [address] [id number] [address] [place] [address], [place] [address] Mar, [facility] [address] [id number] [address] [place] [address], [place] [address] Mar, [facility] [address] [id number] [address] [place] [address], [place] [address] Mar, [facility] [address] [id number] [address] [place] [address], [place] [address] Mar, [facility] [address] [id number] [address] [place] [address], [place] [address] Mar, [facility] [address] [id number] [address] [place] [address], [place] [address] Mar, [facility] [address] [id number] [address] [place] [address], [place] [address] Mar, [facility] [address] [id number] [address] [place] [address], [place] [address] Feb, [facility] [address] [id number] [address] [place] [address], [place] [address] Feb, [facility] [address] [id number] [address] [place] [address], [place] [address] Feb, [facility] [address] [id number] [address] [place] [address], [place] [address] Feb, [facility] [address] [id number] [address] [place] [address], [place] [address] Jan, [facility] [address] [id number] [address] [place] [address], [place] [address] Jan, [facility] [address] [id number] [address] [place] [address], [place] [address] Jan, [facility] [address] [id number] [facility] [place] [address] Jan, [facility] [address] [id number] [facility] [place] [address] Jan, [facility] [address] [id number] [address] [place] [address], [place] [address] Jan, [facility] [address] [id number] [address] [place] [address], [place] [address] Dec, [facility] [address] [id number] [address] [place] [address], [place] [address] Dec, [facility] [address] [id number] [address] [place] [address], [place] [address] Nov, [facility] [address] [id number] [address] [place] [address], [place] [address] Nov, [facility] [address] [id number] [address] [place] [address], [place] [address] Nov, [facility] [address] [id number] [address] [place] [address], [place] [address] Nov, [facility] [address] [id number] [address] [place] [address], [place] [address] Nov, [facility] [address] [id number] [address] [place] [address], [place] [address] Nov, [facility] [address] [id number] [address] [place] [address], [place] [address] Sep, [facility] [address] [id number] [address] [place] [address], [place] [address] Sep, [facility] [address] [id number] [address] [place] [address], [place] [address] Sep, [facility] [address] [id number] [address] [place] [address], [place] [address] Sep, [facility] [address] [id number] [address] [place] [address], [place] [address] Aug, [facility] [address] [id number] [facility] [place] [address] Aug, [facility] [address] [id number] [address] [place] [address], [place] [address] Jul, [facility] [address] [id number] [address] [place] [address], [place] [address] Jul, [facility] [address] [id number] [address] [place] [address], [place] [address] Jun, [facility] [address] [id number] [address] [place] [address], [place] [address] Jun, [facility] [address] [id number] [address] [place] [address], [place] [address] Jun, [facility] [address] [id number] [address] [place] [address], [place] [address] Jun, [facility] [address] [id number] [address] [place] [address], [place] [address] May, [facility] [address] [id number] [address] [place] [address], [place] [address] May, [facility] [address] [id number] [address] [place] [address], [place] [address] May, [facility] [address] [id number] [address] [place] [address], [place] [address] May, [facility] [address] [id number] [address] [place] [address], [place] [address] May, [facility] [address] [id number] [address] [place] [address], [place] [address] May, [facility] [address] [id number] [address] [place] [address], [place] [address] Apr, [facility] [address] [id number] [address] [place] [address], [place] [address] Apr, [facility] [address] [id number] [address] [place] [address], [place] [address] 07 Apr, 2013 [facility] [address] [id number] [address] [place] [address], [place] [address] Apr, [facility] [address] [id number] [address] [place] [address], [place] [address] Mar, [facility] [address] [id number] [address] [place] [address], [place] [address] Mar, [facility] [address] [id number] [address] [place] [address], [place] [address] Mar, [facility] [address] [id number] [address] [place] [address], [place] [address] Mar, [facility] [address] [id number] [address] [place] [address], [place] [id number] Feb, [facility] [address] [facility] [id number] [place] [id number] Jan, [facility] [address] [id number] [address] [place] [address], [place] [id number] Jan, [facility] [address] [id number] [address] [place] [address], [place] [id number] Dec, [facility] [address] [id number] [address] [place] [address], [place] [id number] Dec, [facility] [address] [id number] [address] [place] [phone] Dec, [facility] [address] [facility] [id number] [place] [id number] Dec, [facility] [address] [id number] [address] [place] [address], [place] [id number] Nov, [facility] [address] [id number] [address] [place] [id number] 14 Nov, 2012 [facility] [address] [id number] [address] [place] [id number] Nov, [facility] [address] [id number] [address] [place] [id number] 11 Nov, 2012 [facility] [address] [facility] [id number] [address] [place] [id number] Nov, [facility] [address] [facility] [id number] [address] [place] [id number] October, [facility] [address] [facility] [id number] [address] [place] [id number] October, [facility] [address] [facility] [id number] [address] [place] [phone] Aug, [facility] [address] [facility] [id number] [address] [place] [id number] 13 Nov, 2011 IMMUNIZATIONS No Known Immunizations [...] 04/2019 Hospitalization History gastric sleeve Hospitalization History [facility] Trouble with left shoulder blade 08/2017
--- OUTSIDE RECORDS SUMMARY | 2019-11-29 09:37 | XMS REPORT ---
Author Author Curt DIAZ [facility] Address [address] [place] [address] Care Team Providers Care Laborer Landscape Name Role Phone CHRIS DIAZ Unavailable PROBLEMS Type Condition ICD9-CM Code UKO64-CQ Code Onset Dates Condition S tatus SNOMED Code Problem Edema R60.9 Active 930345974 Problem Morbid obesity E66.01 Active 29148 6002 Problem Metabolic syndrome E88.81 Active 2 47201940 Problem Renal insufficiency N28.9 Active 203522645 Problem Vitamin D deficiency E55.9 Active 47906461 Problem Severe episode of recurrent major depressive disorder, without psychotic features F33.2 Active 99736760 Problem DANIELA (generalized anxiety disorder) F41.1 Active 91355357 Problem Mixed obsessional thoughts and acts F42.2 Active 06770110 Problem Chronic fatigue R53.82 Active 8422 9001 Problem Other chronic pain G89.29 Active 8 7165454 Problem Borderline personality disorder F60.3 Active 74914477 Problem Attachment disorder F94.1 Active Problem Sciatica, right side M54.31 Active 773638302858164 Problem Insomnia G47.00 Active 083316698 Problem Anxiety F41.9 Active 70621968 Problem BMI 45.0-49.9, adult Z68.42 Active 177888155 Problem Hyperlipemia E78.5 Active 8051724 4 Problem Benign essential hypertension I10 Active 3525714 Problem Callous ulcer, limited to breakdown of skin L98.49 1 Active Problem Hammer toe of right foot M20.41 Activ e 652571786 Problem Hammer toe of second toe of right foot M20.41 Active 179960887 Problem Falling episodes R29.6 Active 161 [id number] ALLERGIES No Information ENCOUNTERS Encounter Location Date Diagnosis [facility] [address] [facility] [id number] [place] [address] Dec, [facility] [address] [place] [id number] [address] [place] [phone] Dec, [facility] [address] [id number][place] [id number] Dec, [facility] [address] [facility] [id number] [address] [place] [phone] Dec, [facility] [address] [facility] [id number] [address] [place] [address] Nov, [facility] [address] [facility] [id number] [address] [place] [address] Nov, [facility] [address] [facility] [id number] [address] [place] [phone] October, DANIELA (generalized anxiety dis order) F41.1 ; Severe episode of recurrent major depressive disorder, without psychotic features F33.2 ; Mixed obsessional thoughts and acts F42.2 and Borderline personality disorder F60.[address] 340B [id number] [address] October, [facility] [address] [id number], [place] [id number] October, [facility] [address] [facility] [id number] [place] [address] October, [facility] [address] [id number], [place] [id number] Sep, [facility] [address] [facility] [id number] [address] [place] [phone] Sep, [facility] [address] [id number], [place] [id number] Sep, [facility] [address] [facility] [id number] [address] [place] [address] Sep, [facility] [address] [facility] [id number] [address] [place] [phone] Sep, [facility] [address] [facility] [id number] [address] [place] [phone] Sep, [facility] [address] [facility] [id number] [address] [place] [phone] Sep, [facility] [address] [facility] [id number] [address] [place] [id number] Sep, DANIELA (generalized anxiety dis order) F41.1 ; Severe episode of recurrent major depressive disorder, without psychotic features F33.2 ; Mixed obsessional thoughts and acts F42.2 and Borderline personality disorder F60.3 [facility] [address] [place] [address] [facility] [id number] [place] [address] 13 Sep, 2019 Severe episode of recurrent major depres sive disorder, without psychotic features F33.2 [facility] [address] [id number], [place] [id number] Sep, [facility] [address] [id number], [place] [id number] Sep, [facility] [address] [id number], [place] [id number] Sep, Benign essential hypertension I10 [facility] [address] [facility] [id number] [address] [place] [address] Sep, [facility] [address] [facility] [id number] [address] [place] [phone] Sep, [facility] [address] [facility] [id number] [address] [place] [address] Sep, [facility] [address] [facility] [id number] [address] [place] [address] Sep, DANIELA (generalized anxiety dis order) F41.1 ; Severe episode of recurrent major depressive disorder, without psychotic features F33.2 ; Mixed obsessional thoughts and acts F42.2 and Borderline personality disorder F60.3 [facility] [address] [id number], [place] [id number] Aug, [facility] [address] [facility] [id number] [address] [place] [phone] Aug, [facility] [address] [id number], [place] [id number] Aug, [facility] [address] [facility] [id number] [address] [place] [address] Aug, [facility] [id number] [place] [address] [id number] 17 Aug, 2019 Dizzy R42 ; Weight gain R63.5 ; Benign e ssential hypertension I10 ; Falling episodes R29.6 and History of gastric bypass Z98.84 [facility] [address] [facility] [id number] [address] [place] [phone] 14 Aug, 2019 [facility] [address] [facility] [id number] [address] [place] [address] 13 Aug, 2019 [facility] [address] [place] [id number] [address] [place] [address] 11 Aug, 2019 DANIELA (generalized anxiety dis order) F41.1 ; Severe episode of recurrent major depressive disorder, without psychotic features F33.2 ; Mixed obsessional thoughts and acts F42.2 and Borderline personality disorder F60.3 [facility] [id number] [place] [address] [id number] Aug, [facility] [address] [id number], [place] [id number] Aug, [facility] [address] [facility] [id number] [address] [place] [phone] Aug, [facility] [address] [id number], [place] [id number] Aug, [facility] [id number] [place] [address] [id number] Aug, [facility] [address] [facility] [id number] [address] [place] [address] Aug, [facility] [id number] [place] [address] [id number] Aug, Severe episode of recurrent major depres sive disorder, without psychotic features F33.2 ; Borderline personality disorder F60.3 ; Anxiety F41.9 and Attachment disorder F94.1 [facility] [address] [facility] [id number] [address] [place] [address] Jul, [facility] [address] [facility] [id number] [address] [place] [id number] Jul, DANIELA (generalized anxiety dis order) F41.1 ; Severe episode of recurrent major depressive disorder, without psychotic features F33.2 ; Mixed obsessional thoughts and acts F42.2 and Borderline personality disorder F60.3 [id number] [place] [address] [id number] Jul, [facility] [address] [facility] [id number] [address] [place] [phone] Jul, [facility] [address] [facility] [id number] [address] [place] [id number] Jul, [facility] [address] [facility] [id number] [address] [place] [id number] Jul, [facility] [address] [facility] [id number] [address] [place] [phone] Jul, [facility] [address] [facility] [id number] [address] [place] [phone] Jun, DANIELA (generalized anxiety dis order) F41.1 ; Severe episode of recurrent major depressive disorder, without psychotic features F33.2 ; Mixed obsessional thoughts and acts F42.2 and Borderline personality disorder F60.3 [place] [id number] [facility] [id number] [place] [id number] Jun, [id number] [place] [address] [id number] Jun, [facility] [address] [facility] [id number] [address] [place] [address] Jun, [facility] [address] [facility] [id number] [address] [place] [phone] Jun, DANIELA (generalized anxiety dis order) F41.1 ; Severe episode of recurrent major depressive disorder, without psychotic features F33.2 ; Mixed obsessional thoughts and acts F42.2 and Borderline personality disorder F60.3 [facility] [address] [id number], [place] [id number] Jun, [facility] [address] [id number], [place] [id number] Jun, [facility] [address] [id number], [place] [id number] Jun, [facility] [address] [place] [address] [id number] [place] [address] [id number] Jun, Benign essential hypertension I10 ; Morb id obesity E66.01 ; Severe episode of recurrent major depressive disorder, without psychotic features F33.2 ; Excess skin L98.7 and Hyperlipemia E78.5 [place] [address] [place] [id number] [address] [place] [phone] Jun, [facility] [address] [place] [id number] [address] [place] [phone] May, [place] [address] [place] [id number] [address] [place] [id number] May, Severe episode of recurrent major depressive disorder, without psychotic features F33.2 ; Mixed obsessional thoughts and acts F42.2 ; DANIELA (generalized anxiety disorder) F41.1 and Borderline personality disorder F60.3 [place] [address] [facility] [id number] [address] [place] [id number] May, [place] [address] [place] [id number] [address] [place] [id number] May, DANIELA (generalized anxiety dis order) F41.1 ; Severe episode of recurrent major depressive disorder, without psychotic features F33.2 ; Mixed obsessional thoughts and acts F42.2 and Borderline personality disorder F60.3 [place] [address] [place] [id number] [address] [place] [phone] May, [facility] [address] [facility] [id number] [address] [place] [id number] May, [facility] [address] [facility] [id number] [address] [place] [address] May, Severe episode of recurrent major depressive disorder, without psychotic features F33.2 ; Mixed obsessional thoughts and acts F42.2 ; Borderline personality disorder F60.3 and DANIELA (generalized anxiety disorder) F41.1 [facility] [address] [id number] [address] [place] [address] [id number] May, Caries K02.9 [facility] [address] [id number], [place] [id number] May, Benign essential hypertension I10 [facility] [address] [id number], [place] [id number] Apr, [facility] [address] [id number], [place] [id number] Apr, Benign essential hypertension I10 [facility] [address] [facility] [id number] [address] [place] [id number] Apr, Borderline personality disor romero F60.3 ; DANIELA (generalized anxiety disorder) F41.1 ; Mixed obsessional thoughts and acts F42.2 and Severe episode of recurrent major depressive disorder, without psychotic features F33.2 [facility] [address] [id number], [place] [id number] Apr, [facility] [address] [id number], [place] [id number] Apr, Benign essential hypertension I10 [facility] [address] [facility] [id number] [address] [place] [address] Apr, Severe episode of recurrent major depressive disorder, without psychotic features F33.2 ; DANIELA (generalized anxiety disorder) F41.1 ; Borderline personality disorder F60.3 and Mixed obsessional thoughts and acts F42.2 [facility] [address] [facility] [id number] [address] [place] [address] [id number] Apr, Dental examination Z01.20 [facility] [address] [place] [id number] [address] [place] [address] [id number] Apr, Caries K02.9 and Dental exam ination Z01.20 [facility] [address] [place] [id number] [address] [place] [id number] Apr, DANIELA (generalized anxiety dis order) F41.1 ; Severe episode of recurrent major depressive disorder, without psychotic features F33.2 ; Mixed obsessional thoughts and acts F42.2 and Borderline personality disorder F60.3 [facility] [address] [place] [id number] [place] [address] Mar, Severe episode of recurrent major depressive disorder, without psychotic features F33.2 ; Mixed obsessional thoughts and acts F42.2 ; Borderline personality disorder F60.3 and DANIELA (generalized anxiety disorder) F41.1 [facility] [address] [place] [id number] [address] [place] [address] Mar, Severe episode of recurrent major depressive disorder, without psychotic features F33.2 ; Mixed obsessional thoughts and acts F42.2 ; DANIELA (generalized anxiety disorder) F41.1 and Borderline personality disorder F60.3 [facility] [address] [facility] [id number] [address] [place] [address] [id number] Mar, Dental examination Z01.20 an d Caries K02.[address] [id number], [place] [id number] Mar, Benign essential hypertension I10 and Fa lling episodes R29.6 [facility] [address] [facility] [id number] [address] [place] [phone] Mar, [facility] [address] [address] Mar, Severe episode of recurrent major depressive disorder, without psychotic features F33.2 ; Mixed obsessional thoughts and acts F42.2 ; Borderline personality disorder F60.3 and DANIELA (generalized anxiety disorder) F41.1 [facility] [address] [facility] [id number] [address] [place] [address] Mar, [facility] [address] [facility] [id number] [address] [place] [address] Mar, [address] [id number], [place] [id number] Mar, [facility] [address] [facility] [id number] [address] [place] [address] Mar, Severe episode of recurrent major depressive disorder, without psychotic features F33.2 ; Mixed obsessional thoughts and acts F42.2 ; Borderline personality disorder F60.3 and DANIELA (generalized anxiety disorder) F41.1 [facility] [address] [facility] [id number] [address] [place] [address] Mar, [facility] [address] [facility] [id number] [address] [place] [address] [id number] Feb, Dental examination Z01.20 an d Periodontitis K05.30 [facility] [address] [facility] [id number] [address] [place] [address] Feb, DANIELA (generalized anxiety dis order) F41.1 ; Severe episode of recurrent major depressive disorder, without psychotic features F33.2 ; Mixed obsessional thoughts and acts F42.2 and Borderline personality disorder F60.[address] [id number], [place] [id number] Feb, Acute pain of right knee M25.561 ; Fall, initial encounter W19.XXXA ; Benign essential hypertension I10 and Edema R60.9 [facility] [address] [facility] [id number] [address] [place] [id number] Feb, [facility] [address] [facility] [id number] [address] [place] [id number] 11 Feb, 2019 DANIELA (generalized anxiety dis order) F41.1 ; Severe episode of recurrent major depressive disorder, without psychotic features F33.2 ; Mixed obsessional thoughts and acts F42.2 and Borderline personality disorder F60.3 [place] [address] [facility] [id number] [address] [place] [phone] Feb, [place] [address] [facility] [id number] [address] [place] [phone] Jan, [place] [address] [facility] [id number] [address] [place] [address] Jan, [place] [address] [place] [id number] [place] [address] Jan, [facility] [id number] [place] [address] [id number] Jan, Callus of heel L84 ; Fissure in skin R23 .4 and Hammer toe of second toe of right foot M20.[address] [id number] [place] [address] [id number] Jan, [place] [address] [place] [id number] [address] [place] [phone] Jan, [place] [address] [place] [id number] [address] [place] [address] Jan, [place] [address] [place] [id number] [address] [place] [address] Jan, Severe episode of recurrent major depressive disorder, without psychotic features F33.2 ; DANIELA (generalized anxiety disorder) F41.1 ; Mixed obsessional thoughts and acts F42.2 and Borderline personality disorder F60.3 [place] [address] [place] [id number] [address] [place] [address] Jan, [facility] [address] [id number], [place] [id number] Jan, Benign essential hypertension I10 [facility] [address] [id number], [place] [id number] Dec, Callous ulcer, limited to breakdown of s kin L98.491 and Morbid obesity E66.01 [place] [address] [facility] [id number] [address] [place] [address] Dec, [facility] [address] [facility] [id number] [address] [place] [address] Dec, [facility] [address] [facility] [id number] [address] [place] [address] Dec, [facility] [address] [facility] [id number] [address] [place] [id number] Dec, [facility] [address] [facility] [id number] [address] [place] [id number] Dec, Severe episode of recurrent major depressive disorder, without psychotic features F33.2 [facility] [address] [facility] [id number] [address] [place] [address] Dec, DANIELA (generalized anxiety dis order) F41.1 ; Severe episode of recurrent major depressive disorder, without psychotic features F33.2 ; Mixed obsessional thoughts and acts F42.2 and Dependent personality disorder F60.7 [facility] [address] [facility] [address] [id number], [place] [id number] Dec, Morbid obesity E66.01 [facility] [address] [facility] [id number] [address] [place] [address] Dec, [facility] [address] [facility] [id number] [address] [place] [address] Dec, [address] [id number] [address] Nov, [facility] [address] [facility] [address] [id number], [place] [id number] Nov, [facility] [address] [facility] [id number] [address] [place] [phone] Nov, [facility] [address] [facility] [id number] [address] [place] [address] Nov, [facility] [address] [facility] [id number] [address] [place] [phone] Nov, DANIELA (generalized anxiety dis order) F41.1 ; Severe episode of recurrent major depressive disorder, without psychotic features F33.2 ; Mixed obsessional thoughts and acts F42.2 and Dependent personality disorder F60.7 [facility] [address] [id number], [place] [id number] Nov, Morbid obesity E66.01 [facility] [address] [facility] [id number] [address] [place] [address] Nov, [facility] [address] [facility] [id number] [address] [place] [phone] Nov, DANIELA (generalized anxiety dis order) F41.1 ; Mixed obsessional thoughts and acts F42.2 ; Severe episode of recurrent major depressive disorder, without psychotic features F33.2 and 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 [facility] [address] [address] [id number], [place] [id number] October, Morbid obesity E66.[address] [place] [address] [id number], [place] [id number] October, Benign essential hypertension I10 and Mo rbid obesity E66.[address] [place] [address] [id number], [place] [id number] October, [facility] [address] [facility] [id number] [address] [place] [address] October, Severe episode of recurrent major depressive disorder, without psychotic features F33.[address] [place] [address] [id number], [place] [id number] October, Morbid obesity E66.01 [facility] [address] [id number], [place] [id number] October, [facility] [address] [facility] [id number] [address] [place] [phone] October, Severe episode of recurrent major depressive disorder, without psychotic features F33.2 ; DANIELA (generalized anxiety disorder) F41.1 ; Mixed obsessional thoughts and acts F42.2 and Dependent personality disorder F60.[id number] [id number][place] [id number] October, Morbid obesity E66.01 [facility] [address] [id number] [address] [place] [id number] Sep, Dental examination Z01.[address] [id number], [place] [id number] Sep, [facility] [address] [facility] [id number] [address] [address] Sep, Sore in mouth K13.79 and Mor bid obesity E66.01 [facility] [address] [facility] [id number] [address] [place] [id number] Sep, Dental examination Z01.20 [facility] [address] [facility] [id number] [address] [place] [id number] Sep, Anxiety disorder, unspecifie d F41.[address] [id number][place] [id number] Sep, Mouth ulcer K12.[address] [id number][place] [id number] Sep, Morbid obesity E66.01 [facility] [id number][place] [id number] Sep, Allergic rhinitis, unspecified seasonali ty, unspecified trigger J30.9 and Shortness of breath R06.[address] [id number], [place] [id number] Sep, 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 [id number], [place] [id number] Aug, Mouth abscess K12.2 ; Mouth ulcer K12.1 ; Bloating R14.0 and Morbid obesity E66.01 [facility] [id number], [place] [id number] Aug, [address] [id number], [place] [id number] Aug, [facility] [address] [id number], [place] [id number] Jul, Major depressive disorder, recurrent, mo derate F33.1 ; Abscess of arm, left L02.414 ; BMI 45.0-49.9, adult Z68.42 and Morbid obesity E66.01 [facility] [id number], [place] [id number] Jul, [facility] [address] [id number], [place] [id number] Jul, [facility] [id number], [place] [id number] Jun, Pain in right knee M25.561 and Other chr onic pain G89.[address] [id number], [place] [id number] Jun, Benign essential hypertension I10 ; BMI 45.0-49.9, adult Z68.42 ; Morbid obesity E66.01 ; Vitamin D deficiency E55.9 ; Insomnia G47.00 ; Dependent personality disorder F60.7 ; Edema R60.9 ; Recurrent major depressive disorder, in partial remission F33.41 ; Chronic fatigue R53.82 ; Acute pain of right knee M25.561 ; Metabolic syndrome E88.81 and Irritable mood R45.4 [place] [address] [place] [id number] [address] [place] [phone] Jun, [address] [id number], [place] [id number] Jun, Irritable mood R45.4 [place] [address] [place] [id number] [address] [place] [id number] May, [facility] [address] [place] [place] [id number] [address] [place] [id number] May, [facility] [address] [facility] [id number] [address] [place] [id number] May, Recurrent major depressive d isorder, in partial remission F33.41 ; Mixed obsessional thoughts and acts F42.2 ; 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 and BMI 45.0-49.9, adult Z68.42 [facility] [address] [facility] [id number] [address] [place] [id number] 27 Apr, 2018 [facility] [address] [facility] [id number] [address] [place] [id number] Apr, [facility] [address] [facility] [id number] [address] [place] [id number] Apr, [facility] [address] [facility] [id number] [address] [place] [id number] Apr, [facility] [address] [facility] [id number] [address] [place] [id number] Mar, Mixed obsessional thoughts a nd acts F42.2 ; Recurrent major depressive disorder, in partial remission F33.41 ; DANIELA (generalized anxiety disorder) F41.1 and BMI 45.0-49.9, adult Z68.[address] [id number], [place] [id number] Mar, [facility] [address] [id number], [place] [id number] Mar, BMI 45.0-49.9, adult Z68.42 ; Instabilit y of right knee joint M25.361 and Rash R21 [facility] [address] [facility] [id number] [address] [place] [phone] Jan, Recurrent major depressive d isorder, in partial remission F33.41 ; Mixed obsessional thoughts and acts F42.2 and BMI 45.0-49.9, adult Z68.42 [facility] [address] [id number], [place] [id number] Jan, [facility] [address] [id number], [place] [id number] Jan, Benign essential hypertension I10 ; BMI 45.0-49.9, adult Z68.42 ; Metabolic syndrome E88.81 and Allergic rhinitis, unspecified seasonality, unspecified trigger J30.9 [facility] [address] [facility] [id number] [address] [place] [id number] Dec, DANIELA (generalized anxiety dis order) F41.1 and Depressive disorder, not elsewhere classified F32.9 [facility] [address] [address] [id number], [place] [id number] Dec, Recurrent major depressive disorder, in partial remission F33.[address] [facility] [address] [id number], [place] [id number] Dec, [facility] [address] [id number], [place] [id number] Nov, [facility] [address] [id number], [place] [id number] Nov, Recurrent major depressive disorder, in partial remission F33.41 [facility] [address] [facility] [id number] [address] [place] [id number] Nov, Recurrent major depressive d isorder, in partial remission F33.41 ; Mixed obsessional thoughts and acts F42.2 ; DANIELA (generalized anxiety disorder) F41.1 and BMI 45.0-49.9, adult Z68.42 [facility] [address] [id number], [place] [id number] Nov, [facility] [address] [id number], [place] [id number] Nov, Other conjunctivitis of both eyes H10.89 and Sciatica, right side M54.31 [facility] [address] [address] [id number], [place] [id number] Nov, [facility] [address] [id number], [place] [id number] Nov, [facility] [address] [id number], [place] [id number] October, [facility] [address] [id number], [place] [id number] October, [facility] [address] [place] [id number] [address] [place] [id number] October, BMI 45.0-49.9, adult Z68.42 ; Mixed obsessional thoughts and acts F42.2 ; Recurrent major depressive disorder, in partial remission F33.41 and DANIELA (generalized anxiety disorder) F41.1 [facility] [address] [id number], [place] [id number] October, Benign essential hypertension I10 ; Morb id obesity E66.01 and BMI 45.0-49.9, adult Z68.42 [facility] [id number], [place] [id number] Sep, [facility] [id number], [place] [id number] Sep, [facility] [id number], [place] [id number] Sep, [facility] [id number], [place] [id number] Sep, Hospital discharge follow-up Z09 ; Aller gic rhinitis, unspecified seasonality, unspecified trigger J30.9 and Shortness of breath R06.02 [facility] [id number], [place] [id number] Sep, Recurrent major depressive disorder, in partial remission F33.41 [facility] [id number], [place] [id number] Aug, Irritable mood R45.4 [facility] [address] [facility] [id number] [address] [place] [id number] Aug, [facility] [id number], [place] [id number] Jul, Benign essential hypertension I10 ; Robert a R60.9 and Impacted cerumen of left ear H61.22 [facility] [address] [place] [id number] [address] [place] [id number] 14 Jul, 2017 Major depression F32.9 ; Rec urrent major depressive disorder, in partial remission F33.41 and Anxiety F41.9 [place] [address] [facility] [id number] [address] [place] [id number] Jun, Major depression F32.9 ; Rec urrent major depressive disorder, in partial remission F33.41 and Anxiety F41.[address] [place] [id number] [place] [address] [id number] Jun, Major depression F32.9 ; Morbid obesity E66.01 ; Irritable mood R45.4 ; Hand weakness R29.898 and Vitamin D deficiency E55.[address] [id number] [place] [address] [id number] Jun, [place] [id number] [place] [address] [id number] May, Major depression F32.9 [place] [address] [facility] [id number] [address] [place] [id number] May, Major depression F32.[address] [id number], [place] [id number] May, BMI 50.0-59.9, adult Z68.43 ; Major depr ession F32.9 ; Anxiety F41.9 ; Hypertrophic toenail L60.2 and Pain of left great toe M79.[address] [id number] [place] [address] [id number] May, Recurrent major depressive disorder, in partial remission F33.41 [place] [address] [facility] [id number] [address] [place] [id number] Apr, [place] [id number] [place] [address] [id number] Apr, [place] [address] [facility] [id number] [address] [place] [address] Apr, Major depression F32.9 [facility] [address] [id number], [place] [id number] Apr, Severe episode of recurrent major depres sive disorder, without psychotic features F33.2 ; Anxiety F41.9 and Insomnia G47.00 [facility] [address] [id number], [place] [id number] Apr, [facility] [address] [facility] [id number] [address] [place] [phone] Apr, [facility] [address] [id number], [place] [id number] Apr, [facility] [address] [id number], [place] [id number] Mar, [facility] [address] [id number], [place] [id number] Mar, Allergic conjunctivitis of both eyes H10 .13 [facility] [address] [facility] [id number] [address] [place] [id number] Mar, Major depression F32.9 [facility] [address] [id number], [place] [id number] Mar, Metabolic syndrome E88.81 ; History of g astric bypass Z98.890 ; Benign essential hypertension I10 ; Allergic conjunctivitis of both eyes H10.13 and Morbid obesity E66.01 [facility] [address] [facility] [id number] [address] [place] [id number] Mar, Major depression F32.9 [facility] [address] [id number], [place] [id number] Feb, [facility] [address] [facility] [id number] [address] [place] [id number] Feb, Major depression F32.[address] [facility] [address] [id number], [place] [id number] Feb, Subacute maxillary sinusitis J01.00 and Bronchitis J40 [facility] [address] [facility] [id number] [address] [place] [id number] Feb, Major depressive disorder, r ecurrent, moderate F33.[address] [facility] [address] [id number], [place] [id number] Jan, [facility] [address] [id number], [place] [id number] Jan, Acute non-recurrent maxillary sinusitis J01.00 and Skin tag L91.8 [facility] [address] [address] [id number], [place] [id number] Jan, Cough R05 and Sinus congestion R09.[address] [facility] [address] [id number], [place] [id number] Jan, [facility] [address] [facility] [address] [id number], [place] [id number] Jan, Benign essential hypertension I10 ; Hist ory of gastric bypass Z98.890 and Nausea and vomiting in adult R11.2 [facility] [address] [facility] [id number] [address] [place] [id number] Jan, Major depressive disorder, r ecurrent, moderate F33.1 [facility] [address] [facility] [id number] [address] [place] [id number] Dec, Insomnia G47.00 ; Recurrent major depressive disorder, in partial remission F33.41 and Morbid obesity E66.01 [facility] [address] [id number], [place] [id number] Dec, [facility] [address] [id number], [place] [id number] Dec, Chronic bacterial conjunctivitis of left eye H10.402 [facility] [address] [id number], [place] [id number] Nov, [facility] [address] [id number], [place] [id number] Nov, Dental examination Z01.[address] [facility] [address] [id number], [place] [id number] Nov, Benign essential hypertension I10 ; Hist ory of gastric bypass Z98.890 and Nausea and vomiting in adult R11.2 [facility] [address] [facility] [id number] [address] [place] [id number] 13 Nov, 2016 Major depressive disorder, r ecurrent, moderate F33.1 ; Generalized anxiety disorder F41.1 and Insomnia due to other mental disorder F51.05 [place] [address] [facility] [id number] [address] [place] [id number] Nov, Recurrent major depressive d isorder, in partial remission F33.41 ; Insomnia G47.00 and Morbid obesity E66.01 [facility] [address] [facility] [id number] [place] [id number] October, Abscess of left arm L02.414 [place] [id number] [place] [id number] October, Morbid obesity E66.01 ; Lida r depression F32.9 and Recurrent major depressive disorder, in partial remission F33.[address] [id number], [place] [id number] Sep, Benign essential hypertension I10 ; Morb id obesity E66.01 ; S/P gastric bypass Z98.84 ; Abscess L02.91 and Chronic bacterial conjunctivitis of left eye H10.[address] [id number], [place] [id number] Sep, Dental examination Z01.20 [facility] [address] [place] [id number] [place] [id number] Sep, Morbid obesity E66.01 ; Lida r depression F32.9 and Recurrent major depressive disorder, in partial remission F33.41 [place] [address] [facility] [id number] [address] [place] [id number] Jul, [place] [address] [place] [id number] [address] [place] [address] Jul, Major depressive disorder, r ecurrent, moderate F33.1 [place] [address] [facility] [id number] [address] [place] [id number] Jul, Major depressive disorder, r ecurrent, moderate F33.1 and Generalized anxiety disorder F41.[address] [id number], [place] [id number] Jul, Cough R05 [place] [address] [facility] [id number] [address] [place] [id number] Jul, Morbid obesity E66.01 ; Lida r depression F32.9 and Recurrent major depressive disorder, in partial remission F33.[id number] [place] [address] [id number] Jul, [place] [id number] [place] [address] [id number] Jul, [place] [id number] [place] [address] [id number] Jul, Gastroenteritis K52.9 and Cough R05 [address] [id number] [place] [address] [id number] Jun, Acute bacterial conjunctivitis of left e ye H10.32 [place] [address] [place] [id number] [address] [place] [address] Jun, [place] [address] [place] [id number] [address] [place] [id number] Jun, Recurrent major depressive d isorder, in partial remission F33.41 [place] [address] [place] [id number] [place] [id number] May, Major depression F32.9 and M orbid obesity E66.01 [place] [address] [facility] [id number] [address] [place] [id number] May, [address] [address] [id number] [place] [address] [id number] May, Thrush B37.0 [place] [address] [facility] [id number] [address] [place] [id number] Apr, Major depressive disorder, r ecurrent, moderate F33.1 [place] [address] [facility] [id number] [address] [place] [id number] Apr, Insomnia G47.00 ; Major depr ession F32.9 and Recurrent major depressive disorder, in partial remission F33.41 [place] [address] [facility] [id number] [address] [place] [id number] Apr, [place] [address] [facility] [id number] [address] [place] [address] Apr, Major depression F32.9 and R ecurrent major depressive disorder, in partial remission F33.[address] [facility] [address] [id number], [place] [id number] Mar, Benign essential hypertension I10 ; Morb id obesity E66.01 ; Impacted cerumen of both ears H61.23 ; Laceration of finger of right hand, initial encounter S61.219A and Encounter for immunization Z23 [place] [address] [facility] [id number] [address] [place] [id number] Mar, [place] [address] [facility] [id number] [address] [place] [id number] Mar, [place] [address] [facility] [id number] [address] [place] [phone] Mar, [facility] [address] [id number], [place] [id number] Feb, Nausea R11.0 ; Blood in the stool K92.1 and Benign essential hypertension I10 [place] [address] [facility] [id number] [address] [place] [id number] Feb, Major depression F32.9 and R ecurrent major depressive disorder, in partial remission F33.[address] [facility] [address] [id number], [place] [id number] Feb, [facility] [address] [id number], [place] [id number] Feb, Recurrent major depressive disorder, in partial remission F33.[address] [facility] [address] [address] [id number], [place] [id number] Jan, [facility] [address] [id number], [place] [id number] Jan, Benign essential hypertension I10 ; Robert a R60.9 and Hyperlipidemia, unspecified hyperlipidemia type E78.5 [facility] [address] [id number], [place] [id number] Jan, Recurrent major depressive disorder, in partial remission F33.41 [facility] [address] [id number] [place] [id number] Jan, [facility] [address] [id number], [place] [id number] Jan, [facility] [address] [id number], [place] [id number] Jan, [facility] [address] [facility] [id number] [address] [place] [id number] Jan, [facility] [address] [facility] [id number] [address] [place] [id number] Dec, [facility] [address] [facility] [id number] [address] [place] [phone] Nov, [facility] [address] [facility] [id number] [address] [place] [id number] Nov, Major depression F32.9 [facility] [address] [facility] [id number] [address] [place] [id number] Nov, [facility] [address] [facility] [id number] [address] [place] [id number] Nov, [facility] [address] [facility] [id number] [address] [place] [id number] Nov, Major depressive disorder, r ecurrent episode, mild F33.0 and Anxiety F41.[address] [id number], [place] [id number] Nov, [address] [id number] [place] [address] [id number] October, Left elbow pain M25.522 and Other season al allergic rhinitis J30.[id number] [place] [address] [id number] October, [place] [address] [facility] [id number] [address] [place] [id number] October, Major depressive disorder, r ecurrent, moderate F33.1 [place] [address] [facility] [id number] [address] [place] [id number] October, Major depression F32.9 [place] [address] [facility] [id number] [address] [place] [id number] Sep, [place] or callus L84 and Onych omycosis B35.1 [place] [address] [facility] [id number] [address] [place] [id number] Sep, Major depressive disorder, r ecurrent, moderate F33.1 [place] [address] [facility] [id number] [address] [place] [id number] Sep, Major depression F32.9 [place] [address] [facility] [id number] [address] [place] [id number] Sep, Moderate episode of recurren t major depressive disorder F33.[address] [id number], [place] [id number] Sep, Muscle strain T14.8 [facility] [address] [facility] [id number] [address] [place] [id number] Aug, Major depression F32.9 [place] [address] [facility] [id number] [address] [place] [id number] Aug, Major depression F32.9 [facility] [address] [facility] [id number] [address] [place] [id number] Jul, Morbid obesity E66.01 and Ma cora depression F32.9 [facility] [address] [facility] [id number] [address] [place] [id number] Jul, Depression, major, recurrent , moderate F33.[address] [id number], [place] [id number] Jul, [facility] [address] [facility] [id number] [address] [place] [id number] Jul, [facility] [address] [facility] [id number] [address] [place] [id number] Jul, Major depression F32.9 and M orbid obesity E66.[address] [id number][place] [id number] Jul, Type II diabetes mellitus E11.9 ; Callus of foot L84 ; Benign essential hypertension I10 and Renal insufficiency N28.9 [facility] [address] [facility] [id number] [address] [place] [id number] Jul, Depression, major, recurrent , moderate F33.1 [facility] [address] [facility] [id number] [address] [place] [id number] Jul, Major depression F32.9 [facility] [address] [facility] [id number] [address] [place] [id number] Jul, [facility] [address] [facility] [id number] [address] [place] [id number] Jun, Major depression F32.9 [facility] [address] [facility] [id number] [address] [place] [id number] Jun, Major depressive disorder, r ecurrent, moderate F33.1 [facility] [address] [facility] [id number] [address] [place] [id number] Jun, [place] [address] [facility] [id number] [address] [place] [id number] Jun, Major depressive disorder, r ecurrent, moderate F33.1 and Major depression F32.[address] [id number][place] [id number] Jun, Type II diabetes mellitus E11.9 [place] [address] [place] [id number] [address] [place] [id number] Jun, Depression, major, recurrent , moderate F33.1 [place] [address] [facility] [id number] [address] [place] [id number] May, Major depressive disorder, r ecurrent, moderate F33.1 [place] [address] [place] [id number] [address] [place] [id number] May, [address] [id number] [place] [id number] May, Edema R60.9 [place] [id number] [address] [place] [id number] May, Insomnia G47.00 and Major de pression F32.[address] [id number] [place] [id number] May, 2015 Morbid obesity E66.01 ; Edema R60.9 ; Sh ortness of breath R06.02 ; Benign essential hypertension I10 and Renal insufficiency N28.[address] [id number][place] [id number] May, Hyperlipemia 272.4 and Renal insufficien cy N28.9 [place] [id number] [address] [place] [address] Apr, Major depression F32.9 [place] [address] [address] [facility] [id number] [address] [place] [address] Apr, [place] [address] [address] [place] [id number] [address] [place] [address] Apr, Major depressive disorder, r ecurrent, moderate F33.[address] [facility] [address] [id number][place] [id number] Apr, Type II diabetes mellitus E11.9 ; Benign essential hypertension I10 ; Edema R60.9 and Renal insufficiency N28.9 [place] [address] [address] [facility] [id number] [address] [place] [address] Mar, Major depressive disorder, r ecurrent, moderate F33.1 [place] [address] [address] [facility] [id number] [address] [place] [address] Mar, [place] [address] [address] [facility] [id number] [address] [place] [address] Mar, Major depression F32.[address] [id number][place] [id number] Mar, Morbid obesity E66.01 ; Benign essential hypertension I10 and Type II diabetes mellitus E11.9 [place] [address] [address] [facility] [id number] [address] [place] [address] Feb, Major depressive disorder, r ecurrent, moderate F33.1 [place] [address] [address] [facility] [id number] [address] [place] [address] Feb, Major depressive disorder, r ecurrent episode, in partial or unspecified remission 296.35 ; Anxiety state, unspecified 300.00 and Morbid obesity 278.01 [place] [address] [address] [facility] [id number] [address] [place] [address] Feb, [place] [address] [id number][place] [id number] Feb, Vomiting 787.03 and Viral syndrome 079.9 9 [place] [address] [address] [facility] [id number] [address] [place] [address] Feb, Major depression, recurrent 296.30 ; Generalized anxiety disorder 300.02 and No condition on [place] II V71.[address] [facility] [address] [id number][place] [id number] Feb, Skin tag 701.9 [facility] [address] [facility] [id number] [address] [place] [address] Feb, [facility] [address] [place] [id number] [address] [place] [address] Jan, Depression, major, recurrent , moderate 296.32 [id number] [place] [id number] Jan, Nausea and vomiting 787.01 ; Rib pain on right side 786.50 and Fall on or from sidewalk curb E880.1 [facility] [address] [facility] [id number] [address] [place] [address] Jan, [facility] [address] [place] [id number] [address] [place] [address] Jan, Major depressive disorder, r ecurrent episode, in partial or unspecified remission 296.35 and Anxiety state, unspecified 300.[address] [id number][place] [id number] Jan, [facility] [address] [facility] [id number] [address] [place] [address] Jan, Depression, major, recurrent , moderate 296.32 [facility] [address] [place] [id number] [address] [place] [address] Jan, Major depression, recurrent 296.30 ; No condition on [place] II V71.09 and No condition on axis III V71.[id number] [place] [id number] Jan, Drug-induced nausea and vomiting 787.01 [facility] [address] [place] [id number] [address] [place] [address] Jan, Depression, major, recurrent , moderate 296.32 [facility] [address] [place] [id number] [address] [place] [address] Dec, Depression, major, recurrent , moderate 296.32 [place] [address] [facility] [address] [id number] [place] [address] [id number] Dec, Morbid obesity 278.01 ; Metabolic syndro me 277.7 ; Hyperlipemia 272.4 ; Benign essential hypertension 401.1 ; Dietary counseling V65.3 ; Exercise counseling V65.41 and Inflamed skin tag 701.[address] [address] Dec, Depression, major, recurrent , moderate 296.[address] [address] Dec, [address] [address] Dec, Major depression, recurrent 296.30 ; Anxiety, generalized 300.02 and No condition on [place] II V71.[address] [address] Dec, Depression, major, recurrent , moderate 296.32 [place] [id number] [address] [place] [address] Dec, Major depressive disorder, r ecurrent episode, moderate 296.32 [place] [id number] [address] [place] [address] Dec, Depression, major, recurrent , moderate 296.32 [place] [id number] [address] [place] [address] Dec, Depression, major, recurrent , moderate 296.32 [place] [id number] [address] [place] [address] Dec, Depression, major, recurrent , moderate 296.32 [id number] [place] [address] Dec, Depression, major, recurrent , moderate 296.32 [place] [id number] [address] [place] [address] Nov, Depression, major, recurrent , moderate 296.32 [facility] [address] [facility] [id number] [address] [place] [address] 16 Nov, 2014 Major depression 296.20 ; So cial phobia 300.23 and No condition on [place] II V71.09 [facility] [address] [facility] [id number] [address] [place] [address] 16 Nov, 2014 Depression, major, recurrent , moderate 296.32 [facility] [address] [place] [id number] [place] [address] 09 Nov, 2014 Major depressive disorder, r ecurrent episode, moderate 296.32 and Generalized anxiety disorder 300.02 [facility] [address] [place] [id number] [place] [address] 09 Nov, 2014 Depression, major, recurrent , moderate 296.32 [facility] [address] [place] [id number] [place] [address] Nov, Depression, major, recurrent , moderate 296.32 [facility] [address] [place] [id number] [place] [address] October, Generalized anxiety disorder 300.02 ; No condition on [place] II V71.09 and Major depressive disorder, recurrent 296.30 [facility] [address] [place] [id number] [address] [place] [address] 14 Sep, 2014 [facility] [address] [place] [id number] [address] [place] [address] Sep, [facility] [address] [place] [id number] [address] [place] [address] Aug, [facility] [address] [place] [id number] [address] [place] [address] Aug, [facility] [address] [place] [id number] [address] [place] [address] Aug, [facility] [address] [place] [id number] [address] [place] [address] Aug, [facility] [address] [id number] [facility] [place] [address] 20 Aug, 2014 [facility] [address] [id number] [facility] [place] [address] 20 Aug, 2014 [facility] [address] [id number] [facility] [place] [address] 20 Aug, 2014 [facility] [address] [id number] [address] [place] [address], [place] [address] 20 Aug, 2014 [facility] [address] [id number] [address] [place] [address], [place] [address] 13 Aug, 2014 [facility] [address] [id number] [address] [place] [address], [place] [address] 13 Aug, 2014 [facility] [address] [id number] [address] [place] [address], [place] [address] 13 Aug, 2014 [facility] [address] [id number] [address] [place] [address], [place] [address] 13 Aug, 2014 [facility] [address] [id number] [address] [place] [address], [place] [address] 12 Aug, 2014 [facility] [address] [id number] [address] [place] [address], [place] [address] 12 Aug, 2014 [facility] [address] [id number] [address] [place] [address], [place] [address] 10 Aug, 2014 [facility] [address] [id number] [address] [place] [address], [place] [address] 10 Aug, 2014 [facility] [address] [id number] [address] [place] [address], [place] [address] 09 Aug, 2014 [facility] [address] [id number] [address] [place] [address], [place] [address] Aug, [facility] [address] [id number] [address] [place] [address], [place] [address] 24 Jul, 2014 [facility] [address] [id number] [address] [place] [address], [place] [address] Jul, [facility] [address] [id number] [address] [place] [address], [place] [address] Jul, [facility] [address] [id number] [address] [place] [address], [place] [address] Jul, [facility] [address] [id number] [address] [place] [address], [place] [address] Jul, [facility] [address] [id number] [address] [place] [address], [place] [address] Jul, [facility] [address] [id number] [address] [place] [address], [place] [address] Jun, [facility] [address] [id number] [address] [place] [address], [place] [address] Jun, [facility] [address] [id number] [address] [place] [address], [place] [address] Jun, [facility] [address] [id number] [address] [place] [address], [place] [address] Jun, [facility] [address] [id number] [address] [place] [address], [place] [address] Jun, [facility] [address] [id number] [address] [place] [address], [place] [address] Jun, [facility] [address] [id number] [address] [place] [address] Jun, [facility] [address] [id number] [address] [place] [address] Jun, [facility] [address] [id number] [address] [place] [address] Jun, [facility] [address] [id number] [address] [place] [address] Jun, [facility] [address] [id number] [address] [place] [address], [place] [address] Jun, [facility] [address] [id number] [address] [place] [address], [place] [address] Jun, [facility] [address] [id number] FANNYKiesha S [id number] Jun, [facility] [address] [id number] [address] [place] [address], [place] [address] Jun, [facility] [place] [address] [id number] [address] [place] [address], [place] [address] Jun, [facility] [place] [address] [id number] [address] [place] [address], [place] [address] Jun, [facility] [place] [address] [id number] [address] [place] [address], [place] [address] May, [facility] [address] [id number] [address] [place] [address], [place] [address] May, [facility] [place] [address] [id number] [address] [place] [address], [place] [address] May, [facility] [address] [id number] [address] [place] [address], [place] [address] May, [facility] [address] [id number] [address] [place] [address], [place] [address] Apr, [facility] [address] [id number] [address] [place] [address], [place] [address] Apr, [facility] [place] [address] [id number] [address] [place] [address], [place] [address] Apr, [facility] [address] [id number] [address] [place] [address], [place] [address] Apr, [facility] [address] [id number] [address] [place] [address], [place] [address] Apr, [facility] [address] [id number] [address] [place] [address], [place] [address] Apr, [facility] [address] [id number] [address] [place] [address], [place] [address] Apr, [facility] [address] [id number] [address] [place] [address], [place] [address] Apr, [facility] [address] [id number] [address] [place] [address], [place] [address] Apr, [facility] [address] [id number] [address] [place] [address], [place] [address] Apr, [facility] [address] [id number] [address] [place] [address], [place] [address] Apr, [facility] [address] [id number] [address] [place] [address], [place] [address] Apr, [facility] [address] [id number] [address] [place] [address], [place] [address] Apr, [facility] [address] [id number] [address] [place] [address], [place] [address] Apr, [facility] [address] [id number] [address] [place] [address], [place] [address] Apr, [facility] [address] [id number] [address] [place] [address], [place] [address] Apr, [facility] [address] [id number] [address] [place] [address] Apr, [facility] [address] [id number] [address] [place] [address] Apr, [facility] [address] [id number] [address] [place] [address] Apr, [facility] [address] [id number] [address] [place] [address], [place] [address] Apr, [facility] [address] [id number] [address] [place] [address] Mar, [facility] [address] [id number] [address] [place] [address] Mar, [facility] [address] [id number] [address] [place] [address] Mar, [facility] [address] [id number] [address] [place] [address], [place] [address] Mar, [facility] [address] [id number] [address] [place] [address], [place] [address] Mar, [facility] [address] [id number] [address] [place] [address], [place] [address] Mar, [facility] [address] [id number] [address] [place] [address], [place] [address] Mar, [facility] [address] [id number] [address] [place] [address], [place] [address] Mar, [facility] [address] [id number] [address] [place] [address], [place] [address] Mar, [facility] [address] [id number] [address] [place] [address], [place] [address] Mar, [facility] [address] [id number] [address] [place] [address], [place] [address] Feb, [facility] [address] [id number] [address] [place] [address], [place] [address] Feb, [facility] [address] [id number] [address] [place] [address], [place] [address] Feb, [facility] [address] [id number] [address] [place] [address], [place] [address] Feb, [facility] [address] [id number] [address] [place] [address], [place] [address] Jan, [facility] [address] [id number] [address] [place] [address], [place] [address] Jan, [facility] [address] [id number] [address] [place] [address], [place] [address] Jan, [facility] [address] [id number] [address] [place] [address], [place] [address] Jan, [facility] [address] [id number] [facility] [place] [address] Jan, [facility] [address] [id number] [address] [place] [address], [place] [address] Jan, [facility] [address] [id number] [facility] [place] [address] Dec, [facility] [address] [id number] [address] [place] [address], [place] [address] Dec, [facility] [address] [id number] [address] [place] [address], [place] [address] Nov, [facility] [address] [id number] [address] [place] [address], [place] [address] Nov, [facility] [address] [id number] [address] [place] [address], [place] [address] Nov, [facility] [address] [id number] [address] [place] [address], [place] [address] Nov, [facility] [address] [id number] [address] [place] [address], [place] [address] Nov, [facility] [address] [id number] [address] [place] [address], [place] [address] Nov, [facility] [address] [id number] [address] [place] [address], [place] [address] Sep, [facility] [address] [id number] [address] [place] [address], [place] [address] Sep, [facility] [address] [id number] [address] [place] [address], [place] [address] Sep, [facility] [address] [id number] [address] [place] [address], [place] [address] Sep, [facility] [address] [id number] [address] [place] [address], [place] [address] Aug, [facility] [address] [id number] [address] [place] [address], [place] [address] Aug, [facility] [address] [id number] [address] [place] [address], [place] [address] Jul, [facility] [address] [id number] [address] [place] [address], [place] [address] Jul, [facility] [address] [id number] [address] [place] [address], [place] [address] Jun, [facility] [address] [id number] [address] [place] [address], [place] [address] Jun, [facility] [address] [id number] [address] [place] [address], [place] [address] Jun, [facility] [address] [id number] [address] [place] [address], [place] [address] Jun, [facility] [address] [id number] [address] [place] [address], [place] [address] May, [facility] [address] [id number] [address] [place] [address], [place] [address] May, [facility] [address] [id number] [address] [place] [address], [place] [address] May, [facility] [address] [id number] [address] [place] [address], [place] [address] May, [facility] [address] [id number] [address] [place] [address], [place] [address] May, [facility] [address] [id number] [address] [place] [address], [place] [address] May, [facility] [address] [id number] [address] [place] [address], [place] [address] Apr, [facility] [address] [id number] [address] [place] [address], [place] [address] Apr, [facility] [address] [id number] [address] [place] [address], [place] [address] Apr, [facility] [address] [id number] [address] [place] [address], [place] [address] Apr, [facility] [address] [id number] [address] [place] [address], [place] [address] Mar, [facility] [address] [id number] [address] [place] [address], [place] [address] Mar, [facility] [address] [id number] [address] [place] [address], [place] [address] Mar, [facility] [address] [id number] [address] [place] [address], [place] [address] Mar, [facility] [address] [id number] [address] [place] [address], [place] [address] Feb, [facility] [address] [id number] [place] [id number] Jan, [facility] [address] [id number] [address] [place] [id number] Jan, [facility] [address] [id number] [address] [place] [address], [place] [address] Dec, [facility] [address] [id number] [address] [place] [address], [place] [address] Dec, [facility] [address] [id number] [address] [place] [address], [place] [address] Dec, [facility] [address] [facility] [address] [id number] [place] [id number] Dec, [facility] [address] [id number] [address] [place] [id number] Nov, [facility] [address] [id number] [address] [place] [address], [place] [address] 14 Nov, 2012 [facility] [address] [id number] [address] [place] [address], [place] [address] Nov, [facility] [address] [id number] [address] [place] [address], [place] [address] Nov, [facility] [address] [id number] [address] [place] [id number] 11 Nov, 2012 [facility] [address] [facility] [id number] [address] [place] [id number] October, [facility] [address] [facility] [id number] [address] [place] [id number] October, [facility] [address] [facility] [id number] [address] [place] [id number] Aug, [facility] [address] [facility] [id number] [address] [place] [id number] 13 Nov, 2011 IMMUNIZATIONS No Known Immunizations [...] 04/2019 Hospitalization History gastric sleeve Hospitalization History [facility] Trouble with left shoulder blade 08/2017
--- OUTSIDE RECORDS SUMMARY | 2019-11-29 09:38 | XMS REPORT ---
Author Author Curt DIAZ [facility] Address [address] [place] [address] Care Team Providers Care Rock Lather Name Role Phone CHRIS DIAZ Unavailable PROBLEMS Type Condition ICD9-CM Code UPT74-GA Code Onset Dates Condition S tatus SNOMED Code Problem Edema R60.9 Active 585797455 Problem Morbid obesity E66.01 Active 35529 6002 Problem Metabolic syndrome E88.81 Active 2 73309747 Problem Renal insufficiency N28.9 Active 090082899 Problem Vitamin D deficiency E55.9 Active 29209192 Problem Severe episode of recurrent major depressive disorder, without psychotic features F33.2 Active 46327102 Problem DANIELA (generalized anxiety disorder) F41.1 Active 26545780 Problem Mixed obsessional thoughts and acts F42.2 Active 44148749 Problem Chronic fatigue R53.82 Active 8422 9001 Problem Other chronic pain G89.29 Active 8 9519188 Problem Borderline personality disorder F60.3 Active 53872330 Problem Attachment disorder F94.1 Active Problem Sciatica, right side M54.31 Active 251776698229295 Problem Insomnia G47.00 Active 393349965 Problem Anxiety F41.9 Active 05028911 Problem BMI 45.0-49.9, adult Z68.42 Active 403342337 Problem Hyperlipemia E78.5 Active 7251804 4 Problem Benign essential hypertension I10 Active 3687648 Problem Callous ulcer, limited to breakdown of skin L98.49 1 Active Problem Hammer toe of right foot M20.41 Activ e 848129007 Problem Hammer toe of second toe of right foot M20.41 Active 350950338 Problem Falling episodes R29.6 Active 161 540511 ALLERGIES No Information ENCOUNTERS Encounter Location Date Diagnosis [facility], [place] [address] [facility] [id number] [address] [address] Dec, [facility], [place] [address] [place] [id number] [address] [place] [phone] 15 Dec, 2019 [facility] [address] [id number][place] [id number] Dec, [facility] [address] [facility] [id number] [address] [place] [address] Dec, [facility], [place] [address] [facility] [id number] [address] [place] [address] Nov, [facility], [place] [address] [facility] [id number] [address] [place] [address] October, [facility], [place] [address] [facility] [id number] [address] [place] [address] October, [facility] [address] [id number][place] [id number] October, [facility] [address] [facility] [id number] [address], [place] [address] October, [facility] [address] [id number][place] [id number] Sep, [facility], [place] [address] [facility] [id number] [address] [place] [phone] Sep, [facility] [id number] [place] [id number] Sep, [facility], [place] [address] [facility] [id number] [address] [place] [phone] 28 Sep, 2019 [facility], [place] [address] [facility] [id number] [address] [place] [phone] 24 Sep, 2019 [facility], [place] [address] [facility] [id number] [address] [place] [address] Sep, [facility], [place] [address] [facility] [id number] [address] [place] [address] Sep, [facility], [place] [address] [facility] [id number] [address] [place] [address] Sep, DANIELA (generalized anxiety dis order) F41.1 ; Severe episode of recurrent major depressive disorder, without psychotic features F33.2 ; Mixed obsessional thoughts and acts F42.2 and Borderline personality disorder F60.3 [facility] [address] [facility] [id number] [place] [address] Sep, Severe episode of recurrent major depres sive disorder, without psychotic features F33.2 [facility] [address] [id number][place] [id number] Sep, [facility] [address] [id number][place] [id number] Sep, [facility] [address] [id number], [place] [id number] Sep, Benign essential hypertension I10 [facility], [place] [address] [facility] [id number] [address] [place] [address] Sep, [facility], [place] [address] [facility] [id number] [address] [place] [address] Sep, [facility], [place] [address] [facility] [id number] [address] [place] [address] Sep, [facility], [place] [address] [facility] [id number] [address] [place] [address] Sep, DANIELA (generalized anxiety dis order) F41.1 ; Severe episode of recurrent major depressive disorder, without psychotic features F33.2 ; Mixed obsessional thoughts and acts F42.2 and Borderline personality disorder F60.3 [facility] [address] [id number], [place] [id number] Aug, [facility], [place] [address] [facility] [id number] [address] [place] [address] Aug, [facility] [address] [id number], [place] [id number] Aug, [facility], [place] [address] [facility] [id number] [address] [place] [address] Aug, [facility] [address] [id number][place] [id number] 17 Aug, 2019 Dizzy R42 ; Weight gain R63.5 ; Benign e ssential hypertension I10 ; Falling episodes R29.6 and History of gastric bypass Z98.84 [facility], [place] [address] [place] [id number] [address] [place] [phone] 14 Aug, 2019 [facility], [place] [address] [place] [id number] [address] [place] [phone] 13 Aug, 2019 [facility], [place] [address] [place] [id number] [address] [place] [phone] 11 Aug, 2019 DANIELA (generalized anxiety dis order) F41.1 ; Severe episode of recurrent major depressive disorder, without psychotic features F33.2 ; Mixed obsessional thoughts and acts F42.2 and Borderline personality disorder F60.[id number] [place] [id number] Aug, [place] [id number] [place] [address] [id number] Aug, [place] [address] [place] [id number] [address] [place] [address] Aug, [id number] [place] [id number] Aug, [id number] [place] [address] [id number] Aug, [facility], [place] [address] [facility] [id number] [address] [place] [address] Aug, [id number] [place] [address] [id number] Aug, Severe episode of recurrent major depres sive disorder, without psychotic features F33.2 ; Borderline personality disorder F60.3 ; Anxiety F41.9 and Attachment disorder F94.1 [place] [address] [facility] [id number] [address] [place] [address] Jul, [place] [address] [facility] [id number] [address] [place] [address] 24 Jul, 2019 DANIELA (generalized anxiety dis order) F41.1 ; Severe episode of recurrent major depressive disorder, without psychotic features F33.2 ; Mixed obsessional thoughts and acts F42.2 and Borderline personality disorder F60.3 [place] [address] [facility] [id number][place] [id number] Jul, [facility], [place] [address] [facility] [id number] [address] [place] [address] Jul, [facility], [place] [address] [facility] [id number] [address] [place] [phone] 14 Jul, 2019 [facility], [place] [address] [facility] [id number] [address] [place] [phone] 12 Jul, 2019 [facility], [place] [address] [facility] [id number] [address] [place] [phone] Jul, [facility], [place] [address] [facility] [id number] [address] [place] [address] Jun, DANIELA (generalized anxiety dis order) F41.1 ; Severe episode of recurrent major depressive disorder, without psychotic features F33.2 ; Mixed obsessional thoughts and acts F42.2 and Borderline personality disorder F60.[address] [id number], [place] [id number] Jun, [place] [address] [facility] [address] [id number], [place] [id number] Jun, [facility], [place] [address] [facility] [id number] [address] [place] [address] Jun, [facility], [place] [address] [facility] [id number] [address] [place] [address] Jun, DANIELA (generalized anxiety dis order) F41.1 ; Severe episode of recurrent major depressive disorder, without psychotic features F33.2 ; Mixed obsessional thoughts and acts F42.2 and Borderline personality disorder F60.[address] [id number], [place] [id number] Jun, [facility] [address] [id number], [place] [id number] Jun, [facility] [address] [address] [id number], [place] [id number] Jun, [facility] [address] [id number], [place] [id number] Jun, Benign essential hypertension I10 ; Morb id obesity E66.01 ; Severe episode of recurrent major depressive disorder, without psychotic features F33.2 ; Excess skin L98.7 and Hyperlipemia E78.5 [place] [address] [place] [id number] [address] [place] [phone] Jun, [facility], [place] [address] [place] [id number] [address] [place] [address] May, [place] [address] [place] [id number] [address] [place] [address] May, Severe episode of recurrent major depressive disorder, without psychotic features F33.2 ; Mixed obsessional thoughts and acts F42.2 ; DANIELA (generalized anxiety disorder) F41.1 and Borderline personality disorder F60.3 [place] [address] [place] [id number] [address] [place] [phone] May, [facility], [place] [address] [place] [id number] [address] [place] [phone] May, DANIELA (generalized anxiety dis order) F41.1 ; Severe episode of recurrent major depressive disorder, without psychotic features F33.2 ; Mixed obsessional thoughts and acts F42.2 and Borderline personality disorder F60.3 [facility], [place] [address] [place] [id number] [address] [place] [phone] May, [facility], [place] [address] [place] [id number] [address] [place] [address] May, [facility], [place] [address] [place] [id number] [address] [place] [address] May, Severe episode of recurrent major depressive disorder, without psychotic features F33.2 ; Mixed obsessional thoughts and acts F42.2 ; Borderline personality disorder F60.3 and DANIELA (generalized anxiety disorder) F41.1 [facility] [address] [id number] [address] [place] [address] [id number] May, 2019 Caries K02.9 [facility] [address] [id number], [place] [id number] May, Benign essential hypertension I10 [facility] [address] [id number], [place] [id number] Apr, [facility] [address] [id number], [place] [id number] Apr, Benign essential hypertension I10 [facility], [place] [address] [place] [id number] [address] [place] [address] Apr, Borderline personality disor romero F60.3 ; DANIELA (generalized anxiety disorder) F41.1 ; Mixed obsessional thoughts and acts F42.2 and Severe episode of recurrent major depressive disorder, without psychotic features F33.2 [facility] [address] [id number], [place] [id number] Apr, [facility] [address] [id number], [place] [id number] Apr, Benign essential hypertension I10 [facility], [place] [address] [place] [id number] [address] [place] [address] Apr, Severe episode of recurrent major depressive disorder, without psychotic features F33.2 ; DANIELA (generalized anxiety disorder) F41.1 ; Borderline personality disorder F60.3 and Mixed obsessional thoughts and acts F42.2 [facility] [address] [id number] [address] [place] [address] [id number] Apr, Dental examination Z01.20 [facility] [address] [id number] [address] [place] [address] [id number] Apr, Caries K02.9 and Dental exam ination Z01.20 [facility], [place] [address] [facility] [id number] [address] [place] [address] Apr, DANIELA (generalized anxiety dis order) F41.1 ; Severe episode of recurrent major depressive disorder, without psychotic features F33.2 ; Mixed obsessional thoughts and acts F42.2 and Borderline personality disorder F60.3 [facility], [place] [address] [facility] [id number] [address] [place] [phone] Mar, Severe episode of recurrent major depressive disorder, without psychotic features F33.2 ; Mixed obsessional thoughts and acts F42.2 ; Borderline personality disorder F60.3 and DANIELA (generalized anxiety disorder) F41.1 [place] [address] [place] [id number] [address] [place] [address] Mar, Severe episode of recurrent major depressive disorder, without psychotic features F33.2 ; Mixed obsessional thoughts and acts F42.2 ; DANIELA (generalized anxiety disorder) F41.1 and Borderline personality disorder F60.3 [facility] [address] [place] [id number] [place] [address] [id number] Mar, Dental examination Z01.20 an d Caries K02.9 [facility] [id number] [place] [address] [id number] Mar, Benign essential hypertension I10 and Fa lling episodes R29.6 [facility], [place] [address] [facility] [id number] [address] [place] [phone] Mar, [place] [address] [facility] [id number] [address] [place] [address] Mar, Severe episode of recurrent major depressive disorder, without psychotic features F33.2 ; Mixed obsessional thoughts and acts F42.2 ; Borderline personality disorder F60.3 and DANIELA (generalized anxiety disorder) F41.1 [facility], [place] [address] [facility] [id number] [address] [place] [phone] Mar, [facility], [place] [address] [facility] [id number] [address] [place] [address] Mar, [facility] [address] [id number] [place] [id number] Mar, [facility], [place] [address] [facility] [id number] [address] [place] [address] Mar, Severe episode of recurrent major depressive disorder, without psychotic features F33.2 ; Mixed obsessional thoughts and acts F42.2 ; Borderline personality disorder F60.3 and DANIELA (generalized anxiety disorder) F41.1 [facility], [place] [address] [facility] [id number] [address] [place] [address] Mar, [facility] [address] [id number] [address] [address] [id number] Feb, Dental examination Z01.20 an d Periodontitis K05.30 [facility], [place] [address] [place] [id number] [address] [place] [address] Feb, DANIELA (generalized anxiety dis order) F41.1 ; Severe episode of recurrent major depressive disorder, without psychotic features F33.2 ; Mixed obsessional thoughts and acts F42.2 and Borderline personality disorder F60.3 [facility] [address] [id number], [place] [id number] Feb, Acute pain of right knee M25.561 ; Fall, initial encounter W19.XXXA ; Benign essential hypertension I10 and Edema R60.9 [facility], [place] [address] [facility] [id number] [address] [place] [address] Feb, [facility], [place] [address] [facility] [id number] [address] [place] [address] Feb, DANIELA (generalized anxiety dis order) F41.1 ; Severe episode of recurrent major depressive disorder, without psychotic features F33.2 ; Mixed obsessional thoughts and acts F42.2 and Borderline personality disorder F60.3 [facility], [place] [address] [facility] [id number] [address] [place] [address] Feb, [facility], [place] [address] [facility] [id number] [address] [place] [address] Jan, [facility], [place] [address] [place] [id number] [address] [place] [address] Jan, [facility], [place] [address] [place] [id number] [address] [place] [address] Jan, [facility] [address] [facility] [id number] [place] [address] [id number] Jan, Callus of heel L84 ; Fissure in skin R23 .4 and Hammer toe of second toe of right foot M20.41 [facility] [address] [place] [address] [id number] [place] [address] [id number] Jan, [facility], [place] [address] [address] Jan, [facility], [place] [address] [address] Jan, [facility], [place] [address] [address] Jan, Severe episode of recurrent major depressive disorder, without psychotic features F33.2 ; DANIELA (generalized anxiety disorder) F41.1 ; Mixed obsessional thoughts and acts F42.2 and Borderline personality disorder F60.3 [facility], [place] [address] [place] [address] Jan, [facility] [address] [place] [id number] [place] [address] [id number] Jan, Benign essential hypertension I10 [facility] [address] [place] [id number] [place] [address] [id number] Dec, Callous ulcer, limited to breakdown of s kin L98.491 and Morbid obesity E66.01 [facility], [place] [address] [facility] [id number] [address] [place] [address] Dec, [facility], [place] [address] [place] [id number] [address] [place] [address] Dec, [facility], [place] [address] [place] [id number] [address] [place] [address] Dec, [facility], [place] [address] [id number] [address] [place] [address] Dec, [facility], [place] [address] [facility] [id number] [address] [place] [address] Dec, Severe episode of recurrent major depressive disorder, without psychotic features F33.2 [facility], [place] [address] [facility] [id number] [address] [place] [address] Dec, DANIELA (generalized anxiety dis order) F41.1 ; Severe episode of recurrent major depressive disorder, without psychotic features F33.2 ; Mixed obsessional thoughts and acts F42.2 and Dependent personality disorder F60.7 [facility] [address] [address] [id number], [place] [id number] Dec, Morbid obesity E66.01 [facility], [place] [address] [facility] [id number] [address] [place] [address] Dec, [facility], [place] [address] [facility] [id number] [address] [place] [address] Dec, [facility] [address] [id number] [address] Nov, [facility] [address] [id number], [place] [id number] Nov, [facility], [place] [address] [facility] [id number] [address] [place] [address] Nov, [facility], [place] [address] [facility] [id number] [address] [place] [address] Nov, [facility], [place] [address] [facility] [id number] [address] [place] [address] Nov, DANIELA (generalized anxiety dis order) F41.1 ; Severe episode of recurrent major depressive disorder, without psychotic features F33.2 ; Mixed obsessional thoughts and acts F42.2 and 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 [address] [id number], [place] [id number] Nov, Morbid obesity E66.01 [facility], [place] [address] [facility] [id number] [address] [place] [address] Nov, [facility], [place] [address] [facility] [id number] [address] [place] [phone] Nov, DANIELA (generalized anxiety dis order) F41.1 ; Mixed obsessional thoughts and acts F42.2 ; Severe episode of recurrent major depressive disorder, without psychotic features F33.2 and Dependent personality disorder F60.7 [facility] [address] [id number], [place] [id number] October, Morbid obesity E66.01 [facility] [address] [id number], [place] [id number] October, Benign essential hypertension I10 and Mo rbid obesity E66.01 [facility] [address] [id number], [place] [id number] October, [facility], [place] [address] [facility] [id number] [address] [place] [address] October, Severe episode of recurrent major depressive disorder, without psychotic features F33.2 [facility] [address] [id number] [id number] October, Morbid obesity E66.01 [facility] [address] [id number] [id number] October, [facility], [place] [address] [facility] [id number] [address] [place] [phone] October, Severe episode of recurrent major depressive disorder, without psychotic features F33.2 ; DANIELA (generalized anxiety disorder) F41.1 ; Mixed obsessional thoughts and acts F42.2 and Dependent personality disorder F60.7 [facility] [address] [id number] [id number] October, Morbid obesity E66.01 [facility] [address] [id number] [place] [id number] Sep, Dental examination Z01.20 [facility] [address] [id number] [id number] Sep, [facility] [address] [facility] [id number] [address] [place] [id number] Sep, Sore in mouth K13.79 and Mor bid obesity E66.01 [facility], [place] [address] [facility] [id number] [place] [phone] Sep, Dental examination Z01.20 [facility], [place] [address] [facility] [id number] [address] [place] [phone] Sep, Anxiety disorder, unspecifie d F41.[address] [id number] [place] [address] [id number] Sep, Mouth ulcer K12.[address] [id number] [place] [address] [id number] Sep, Morbid obesity E66.[address] [id number] [place] [address] [id number] Sep, Allergic rhinitis, unspecified seasonali ty, unspecified trigger J30.9 and Shortness of breath R06.[address] AV[id number] [place] [address] [id number] Sep, 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 [id number] [place] [address] [id number] Aug, Mouth abscess K12.2 ; Mouth ulcer K12.1 ; Bloating R14.0 and Morbid obesity E66.01 [facility] [id number], [place] [id number] Aug, [facility] [id number] [place] [address] [id number] Aug, [facility] [id number], [place] [id number] Jul, Major depressive disorder, recurrent, mo derate F33.1 ; Abscess of arm, left L02.414 ; BMI 45.0-49.9, adult Z68.42 and Morbid obesity E66.01 [facility] [address] [id number], [place] [phone] Jul, [facility] [address] [id number], [place] [id number] Jul, [facility] [address] [id number], [place] [id number] Jun, Pain in right knee M25.561 and Other chr onic pain G89.29 [facility] [address] [id number], [place] [id number] Jun, Benign essential hypertension I10 ; BMI 45.0-49.9, adult Z68.42 ; Morbid obesity E66.01 ; Vitamin D deficiency E55.9 ; Insomnia G47.00 ; Dependent personality disorder F60.7 ; Edema R60.9 ; Recurrent major depressive disorder, in partial remission F33.41 ; Chronic fatigue R53.82 ; Acute pain of right knee M25.561 ; Metabolic syndrome E88.81 and Irritable mood R45.4 [place] [address] [place] [id number] [address] [place] [phone] Jun, [facility] [address] [facility] [address] [id number], [place] [id number] Jun, Irritable mood R45.4 [facility], [place] [address] [facility] [id number] [address] [place] [phone] May, [facility], [place] [address] [facility] [id number] [address] [place] [phone] May, [facility], [place] [address] [facility] [id number] [address] [place] [phone] May, Recurrent major depressive d isorder, in partial remission F33.41 ; Mixed obsessional thoughts and acts F42.2 ; Dependent personality disorder F60.7 and BMI 45.0-49.9, adult Z68.42 [facility], [place] [address] [facility] [id number] [address] [place] [phone] Apr, [facility], [place] [address] [facility] [id number] [address] [place] [phone] Apr, [facility], [place] [address] [facility] [id number] [address] [place] [phone] Apr, [facility], [place] [address] [facility] [id number] [address] [place] [phone] Apr, [facility], [place] [address] [place] [id number] [address] [place] [phone] Mar, Mixed obsessional thoughts a nd acts F42.2 ; Recurrent major depressive disorder, in partial remission F33.41 ; DANIELA (generalized anxiety disorder) F41.1 and BMI 45.0-49.9, adult Z68.[address] [place] [address] [id number] [place] [address] [id number] Mar, [id number] [place] [address] [id number] Mar, BMI 45.0-49.9, adult Z68.42 ; Instabilit y of right knee joint M25.361 and Rash R21 [place] [address] [place] [id number] [address] [place] [phone] Jan, Recurrent major depressive d isorder, in partial remission F33.41 ; Mixed obsessional thoughts and acts F42.2 and BMI 45.0-49.9, adult Z68.[address] [place] [place] [id number] [place] [address] [id number] Jan, [place] [id number] [place] [address] [id number] Jan, Benign essential hypertension I10 ; BMI 45.0-49.9, adult Z68.42 ; Metabolic syndrome E88.81 and Allergic rhinitis, unspecified seasonality, unspecified trigger J30.9 [facility], [place] [address] [facility] [id number] [address] [place] [phone] Dec, DANIELA (generalized anxiety dis order) F41.1 and Depressive disorder, not elsewhere classified F32.[address] [id number] [place] [employer] [place] [id number] Dec, Recurrent major depressive disorder, in partial remission F33.[address] [id number] [place] [id number] Dec, [facility] [address] [id number] [place] [id number] Nov, [facility] [address] [id number] [place] [id number] Nov, Recurrent major depressive disorder, in partial remission F33.41 [facility], [place] [address] [place] [id number] [address] [place] [phone] Nov, Recurrent major depressive d isorder, in partial remission F33.41 ; Mixed obsessional thoughts and acts F42.2 ; DANIELA (generalized anxiety disorder) F41.1 and BMI 45.0-49.9, adult Z68.42 [facility] [address] [id number] [place] [employer] [place] [id number] Nov, [facility] [address] [id number] [place] [employer] [place] [id number] Nov, Other conjunctivitis of both eyes H10.89 and Sciatica, right side M54.31 [facility] [address] [id number], [place] [id number] Nov, [facility] [address] [id number] [place] [id number] Nov, [facility] [address] [id number], [place] [id number] October, [facility] [address] [id number] [place] [id number] October, [facility], [place] [address] [facility] [id number] [address] [place] [phone] October, BMI 45.0-49.9, adult Z68.42 ; Mixed obsessional thoughts and acts F42.2 ; Recurrent major depressive disorder, in partial remission F33.41 and DANIELA (generalized anxiety disorder) F41.1 [facility] [id number], [place] [id number] October, Benign essential hypertension I10 ; Morb id obesity E66.01 and BMI 45.0-49.9, adult Z68.42 [facility] [id number] [place] [address] [id number] Sep, [facility] [id number] [place] [address] [id number] Sep, [facility] [id number] [place] [address] [id number] Sep, [facility] [id number] [place] [address] [id number] Sep, Hospital discharge follow-up Z09 ; Aller gic rhinitis, unspecified seasonality, unspecified trigger J30.9 and Shortness of breath R06.02 [facility] [employer] [place] [address] AVE [id number], [place] [id number] Sep, Recurrent major depressive disorder, in partial remission F33.41 [facility] [id number] [place] [address] [id number] Aug, Irritable mood R45.4 [place] [address] [place] [id number] [address] [place] [phone] Aug, [facility] [id number] [place] [address] [id number] Jul, Benign essential hypertension I10 ; Robert a R60.9 and Impacted cerumen of left ear H61.22 [place] [address] [address] Jul, Major depression F32.9 ; Rec urrent major depressive disorder, in partial remission F33.41 and Anxiety F41.9 [place] [address] [address] Jun, Major depression F32.9 ; Rec urrent major depressive disorder, in partial remission F33.[address] [facility] [address] [id number], [place] [id number] Jun, Major depression F32.9 ; Morbid obesity E66.01 ; Irritable mood R45.4 ; Hand weakness R29.898 and Vitamin D deficiency E55.9 [facility] [address] [id number], [place] [id number] Jun, [facility] [address] [id number], [place] [id number] May, Major depression F32.9 [place] [address] [facility] [id number] [address] [place] [phone] May, Major depression F32.[address] [place] [place] [id number] [place] [address] [id number] May, BMI 50.0-59.9, adult Z68.43 ; Major depr ession F32.9 ; Anxiety F41.9 ; Hypertrophic toenail L60.2 and Pain of left great toe M79.[address] [place] [id number] [place] [address] [id number] May, Recurrent major depressive disorder, in partial remission F33.41 [place] [address] [facility] [id number] [address] [place] [phone] Apr, [facility] [id number] [place] [address] [id number] Apr, [facility], [place] [address] [facility] [id number] [address] [place] [phone] Apr, Major depression F32.9 [facility] [id number] [place] [address] [id number] Apr, Severe episode of recurrent major depres sive disorder, without psychotic features F33.2 ; Anxiety F41.9 and Insomnia G47.[address] [facility] [address] [id number], [place] [id number] Apr, [facility], [place] [address] [facility] [id number] [address] [place] [phone] Apr, [facility] [address] [id number], [place] [id number] Apr, [facility] [address] [id number], [place] [id number] Mar, [facility] [address] [id number], [place] [id number] Mar, Allergic conjunctivitis of both eyes H10 .13 [facility], [place] [address] [facility] [id number] [address] [place] [id number] Mar, Major depression F32.9 [facility] [address] [id number], [place] [id number] Mar, Metabolic syndrome E88.81 ; History of g astric bypass Z98.890 ; Benign essential hypertension I10 ; Allergic conjunctivitis of both eyes H10.13 and Morbid obesity E66.01 [facility], [place] [address] [facility] [id number] [address] [place] [phone] Mar, Major depression F32.9 [facility] [address] [id number], [place] [id number] Feb, [facility], [place] [address] [facility] [id number] [address] [place] [phone] Feb, Major depression F32.9 [facility] [place] [address] [id number], [place] [id number] Feb, Subacute maxillary sinusitis J01.00 and Bronchitis J40 [facility], [place] [address] [facility] [id number] [address] [place] [id number] 06 Feb, 2017 Major depressive disorder, r ecurrent, moderate F33.1 [facility] [address] [address] [id number], [place] [id number] Jan, [facility] [place] [address] [id number], [place] [id number] Jan, Acute non-recurrent maxillary sinusitis J01.00 [address] Skin [address].8 [facility] [address] [id number], [place] [id number] Jan, Cough R05 and Sinus congestion R09.81 [facility] [place] [address] [place] [address] AVE [id number], [place] [id number] Jan, [facility] [address] [id number], [place] [id number] Jan, Benign essential hypertension I10 ; Hist ory of gastric bypass Z98.890 and Nausea and vomiting in adult R11.2 [place] [address] [address] [place] [id number] [address] [place] [id number] 04 Jan, 2017 Major depressive disorder, r ecurrent, moderate F33.1 [place] [address] [place] [id number] [address] [place] [phone] 12 Dec, 2016 Insomnia G47.00 ; Recurrent major depressive disorder, in partial remission F33.41 and Morbid obesity E66.01 [facility] [place] [address] [place] [address] AVE [id number], [place] [id number] Dec, [facility] [address] [id number], [place] [id number] Dec, Chronic bacterial conjunctivitis of left eye H10.402 [facility] [place] [address] [place] [address] AVE [id number], [place] [id number] Nov, [facility] [address] [id number] [place] [address] [id number] Nov, Dental examination Z01.20 [facility] [address] [id number] [place] [address] [id number] Nov, Benign essential hypertension I10 ; Hist ory of gastric bypass Z98.890 and Nausea and vomiting in adult R11.2 [place] [address] [place] [id number] [address] [place] [phone] Nov, Major depressive disorder, r ecurrent, moderate F33.1 ; Generalized anxiety disorder F41.1 and Insomnia due to other mental disorder F51.05 [place] [address] [facility] [id number] [address] [place] [phone] Nov, Recurrent major depressive d isorder, in partial remission F33.41 ; Insomnia G47.00 and Morbid obesity E66.01 [facility] [address] [id number] [place] [id number] October, Abscess of left arm L02.414 [place] [address] [facility] [id number] [address] [place] [phone] October, Morbid obesity E66.01 ; Lida r depression F32.9 and Recurrent major depressive disorder, in partial remission F33.41 [facility] [address] [id number], [place] [id number] Sep, Benign essential hypertension I10 ; Morb id obesity E66.01 ; S/P gastric bypass Z98.84 ; Abscess L02.91 and Chronic bacterial conjunctivitis of left eye H10.402 [facility] [id number] [place] [address] [id number] Sep, Dental examination Z01.20 [place] [address] [facility] [id number] [address] [place] [address] Sep, Morbid obesity E66.01 ; Lida r depression F32.9 and Recurrent major depressive disorder, in partial remission F33.41 [place] [address] [facility] [id number] [address] [place] [phone] Jul, [place] [address] [facility] [id number] [address] [place] [phone] Jul, Major depressive disorder, r ecurrent, moderate F33.1 [place] [address] [address] [facility] [id number] [address] [place] [phone] Jul, Major depressive disorder, r ecurrent, moderate F33.1 and Generalized anxiety disorder F41.1 [facility] [address] [id number], [place] [id number] Jul, Cough R05 [facility], [place] [address] [facility] [id number] [address] [place] [address] Jul, Morbid obesity E66.01 ; Lida r depression F32.9 and Recurrent major depressive disorder, in partial remission F33.41 [facility] [place] [address] [id number], [place] [id number] Jul, [facility] [place] [address] [id number], [place] [id number] Jul, [facility] [place] [id number] [place] [address] [id number] Jul, Gastroenteritis K52.9 and Cough R05 [address] [id number] [place] [address] [id number] Jun, Acute bacterial conjunctivitis of left e ye H10.32 [facility], [place] [address] [facility] [id number] [address] [place] [phone] Jun, [place] [address] [address] Jun, Recurrent major depressive d isorder, in partial remission F33.41 [facility], [place] [address] [place] [id number] [address] [place] [phone] May, Major depression F32.9 and M orbid obesity E66.01 [facility], [place] [address] [facility] [id number] [address] [place] [phone] May, [facility] [address] [facility] [address] [id number] [place] [address] [id number] May, Thrush B37.0 [facility], [place] [address] [place] [id number] [address] [place] [address] Apr, Major depressive disorder, r ecurrent, moderate F33.1 [place] [address] [address] [place] [id number] [address] [place] [address] Apr, Insomnia G47.00 ; Major depr ession F32.9 and Recurrent major depressive disorder, in partial remission F33.41 [facility], [place] [address] [facility] [id number] [address] [place] [phone] Apr, [facility], [place] [address] [facility] [id number] [address] [place] [phone] Apr, Major depression F32.9 and R ecurrent major depressive disorder, in partial remission F33.41 [facility] [address] [id number], [place] [id number] Mar, Benign essential hypertension I10 ; Morb id obesity E66.01 ; Impacted cerumen of both ears H61.23 ; Laceration of finger of right hand, initial encounter S61.219A and Encounter for immunization Z23 [facility], [place] [address] [facility] [id number] [address] [place] [phone] 17 Mar, 2016 [facility], [place] [address] [facility] [id number] [address] [place] [phone] Mar, [place] [address] [facility] [id number] [address] [place] [phone] Mar, [place] [address] [id number], [place] [id number] Feb, Nausea R11.0 ; Blood in the stool K92.1 and Benign essential hypertension I10 [place] [address] [facility] [id number] [address] [place] [address] Feb, Major depression F32.9 and R ecurrent major depressive disorder, in partial remission F33.41 [facility] [place] [address] [id number], [place] [id number] Feb, [facility] [address] [id number], [place] [id number] Feb, Recurrent major depressive disorder, in partial remission F33.41 [facility] [address] [id number], [place] [id number] Jan, [facility] [place] [address] [id number], [place] [id number] Jan, Benign essential hypertension I10 ; Robert a R60.9 and Hyperlipidemia, unspecified hyperlipidemia type E78.5 [facility] [place] [address] [id number], [place] [id number] Jan, Recurrent major depressive disorder, in partial remission F33.41 [facility] [address] [id number] [place] [id number] Jan, [facility] [place] [address] [id number], [place] [id number] Jan, [facility] [place] [address] [id number], [place] [id number] Jan, [facility], [place] [address] [facility] [id number] [address] [place] [phone] Jan, [facility], [place] [address] [facility] [id number] [address] [place] [phone] Dec, [facility], [place] [address] [facility] [id number] [address] [place] [phone] Nov, [facility], [place] [address] [facility] [id number] [address] [place] [phone] Nov, Major depression F32.9 [facility], [place] [address] [facility] [id number] [address] [place] [phone] Nov, [facility] [address] [facility] [id number] [address] [place] [phone] Nov, [facility] [address] [facility] [id number] [address] [place] [phone] Nov, Major depressive disorder, r ecurrent episode, mild F33.0 and Anxiety F41.9 [facility] [address] [id number], [place] [id number] Nov, [facility] [address] [id number], [place] [id number] October, Left elbow pain M25.522 and Other season al allergic rhinitis J30.2 [facility] [address] [id number] [id number] October, [facility], [place] [address] [facility] [id number] [address] [place] [id number] October, Major depressive disorder, r ecurrent, moderate F33.1 [facility], [place] [address] [facility] [id number] [address] [place] [id number] October, Major depression F32.9 [facility], [place] [address] [facility] [id number] [address] [place] [id number] Sep, [place] or callus L84 and Onych omycosis B35.1 [facility], [place] [address] [facility] [id number] [address] [place] [phone] Sep, Major depressive disorder, r ecurrent, moderate F33.1 [facility], [place] [address] [facility] [id number] [address] [place] [id number] Sep, Major depression F32.9 [facility], [place] [address] [facility] [id number] [address] [place] [phone] Sep, Moderate episode of recurren t major depressive disorder F33.1 [facility] [address] [place] [address] AVE [id number][place] [id number] Sep, Muscle strain T14.8 [facility], [place] [address] [facility] [id number] [address] [place] [phone] Aug, Major depression F32.9 [facility], [place] [address] [facility] [id number] [address] [place] [phone] Aug, Major depression F32.9 [facility], [place] [address] [facility] [id number] [address] [place] [id number] Jul, Morbid obesity E66.01 and Ma cora depression F32.9 [facility], [place] [address] [facility] [id number] [address] [place] [phone] Jul, Depression, major, recurrent , moderate F33.[address] [id number][place] [id number] Jul, [facility], [place] [address] [facility] [id number] [address] [place] [id number] Jul, [facility], [place] [address] [facility] [id number] [address] [place] [id number] Jul, Major depression F32.9 and M orbid obesity E66.[id number] [place] [id number] Jul, Type II diabetes mellitus E11.9 ; Callus of foot L84 ; Benign essential hypertension I10 and Renal insufficiency N28.9 [facility], [place] [address] [place] [id number] [address] [place] [address] 09 Jul, 2015 Depression, major, recurrent , moderate F33.1 [place] [address] [place] [id number] [address] [place] [address] 05 Jul, 2015 Major depression F32.9 [facility], [place] [address] [id number] [address] [place] [address] Jul, [facility], [place] [address] [id number] [address] [place] [address] Jun, Major depression F32.9 [facility], [place] [address] [id number] [address] [place] [address] Jun, Major depressive disorder, r ecurrent, moderate F33.1 [facility], [place] [address] [facility] [id number] [address] [place] [address] Jun, [place] [address] [place] [address] [id number] [address] [place] [address] Jun, Major depressive disorder, r ecurrent, moderate F33.1 and Major depression F32.[address] [id number] [id number] Jun, Type II diabetes mellitus E11.9 [facility], [place] [address] [facility] [id number] [address] [place] [address] Jun, Depression, major, recurrent , moderate F33.1 [place] [address] [facility] [id number] [address] [place] [address] May, Major depressive disorder, r ecurrent, moderate F33.1 [place] [address] [address] [facility] [id number] [address] [place] [address] May, [place] [id number] [place] [id number] May, Edema R60.9 [place] [address] [facility] [id number] [address] [place] [address] May, Insomnia G47.00 and Major de pression F32.[address] [place] [id number] [place] [address] [id number] May, Morbid obesity E66.01 ; Edema R60.9 ; Sh ortness of breath R06.02 ; Benign essential hypertension I10 and Renal insufficiency N28.[address] [place] [id number] [place] [address] [id number] May, Hyperlipemia 272.4 and Renal insufficien cy N28.9 [place] [address] [address] [facility] [id number] [address] [place] [address] Apr, Major depression F32.9 [place] [address] [facility] [id number] [address] [place] [address] Apr, [place] [address] [facility] [id number] [address] [place] [address] Apr, Major depressive disorder, r ecurrent, moderate F33.[address] [id number] [id number] Apr, Type II diabetes mellitus E11.9 ; Benign essential hypertension I10 ; Edema R60.9 and Renal insufficiency N28.9 [place] [address] [address] [facility] [id number] [address] [place] [address] Mar, Major depressive disorder, r ecurrent, moderate F33.1 [place] [address] [address] [facility] [id number] [address] [place] [address] Mar, [facility], [place] [address] [facility] [id number] [address] [place] [address] Mar, Major depression F32.9 [facility] [id number] [place] [address] [id number] Mar, Morbid obesity E66.01 ; Benign essential hypertension I10 and Type II diabetes mellitus E11.9 [place] [address] [facility] [id number] [address] [place] [address] Feb, Major depressive disorder, r ecurrent, moderate F33.1 [place] [address] [place] [id number] [address] [place] [address] Feb, Major depressive disorder, r ecurrent episode, in partial or unspecified remission 296.35 ; Anxiety state, unspecified 300.00 and Morbid obesity 278.01 [place] [id number] [place] [address] Feb, [facility] [id number] [place] [address] [id number] 16 Feb, 2015 Vomiting 787.03 and Viral syndrome 079.9 9 [place] [address] [place] [id number] [address] [place] [address] 15 Feb, 2015 Major depression, recurrent 296.30 ; Generalized anxiety disorder 300.02 and No condition on Rawlins II V71.09 [facility] [id number] [place] [address] [id number] 03 Feb, 2015 Skin tag 701.9 [place] [address] [facility] [id number] [address] [place] [address] Feb, [place] [address] [place] [id number] [address] [place] [address] Jan, Depression, major, recurrent , moderate 296.[address] [id number] [id number] Jan, Nausea and vomiting 787.01 ; Rib pain on right side 786.50 and Fall on or from sidewalk curb E880.1 [facility], [place] [address] [facility] [id number] [address] [place] [address] Jan, [facility], [place] [address] [id number] [place] [address] Jan, Major depressive disorder, r ecurrent episode, in partial or unspecified remission 296.35 and Anxiety state, unspecified 300.00 [facility] [address] [place] [address] [id number] [id number] Jan, [facility], [place] [address] [facility] [id number] [address] [place] [address] Jan, Depression, major, recurrent , moderate 296.32 [facility], [place] [address] [facility] [id number] [address] [place] [address] Jan, Major depression, recurrent 296.30 ; No condition on Rawlins II V71.09 and No condition on axis III V71.[address] [id number] [id number] Jan, Drug-induced nausea and vomiting 787.01 [facility], [place] [address] [facility] [id number] [address] [place] [address] Jan, Depression, major, recurrent , moderate 296.32 [facility], [place] [address] [facility] [id number] [address] [place] [address] Dec, Depression, major, recurrent , moderate 296.[address] [id number] [id number] Dec, Morbid obesity 278.01 ; Metabolic syndro me 277.7 ; Hyperlipemia 272.4 ; Benign essential hypertension 401.1 ; Dietary counseling V65.3 ; Exercise counseling V65.41 and Inflamed skin tag 701.9 [facility], [place] [address] [address] Dec, Depression, major, recurrent , moderate 296.32 [place] [address] [address] Dec, [place] [address] [address] Dec, Major depression, recurrent 296.30 ; Anxiety, generalized 300.02 and No condition on Rawlins II V71.09 [place] [address] [address] Dec, Depression, major, recurrent , moderate 296.32 [place] [address] [address] Dec, Major depressive disorder, r ecurrent episode, moderate 296.[address] [address] Dec, Depression, major, recurrent , moderate 296.32 [place] [address] [address] Dec, Depression, major, recurrent , moderate 296.32 [place] [address] [address] Dec, Depression, major, recurrent , moderate 296.32 [place] [address] [address] Dec, Depression, major, recurrent , moderate 296.32 [place] [address] [address] Nov, Depression, major, recurrent , moderate 296.32 [place] [address] [address] Nov, Major depression 296.20 ; So cial phobia 300.23 and No condition on Rawlins II V71.09 [place] [address] [place] [id number] [place] [address] 16 Nov, 2014 Depression, major, recurrent , moderate 296.32 [facility], [place] [address] [facility] [id number] [address] [place] [address] 09 Nov, 2014 Major depressive disorder, r ecurrent episode, moderate 296.32 and Generalized anxiety disorder 300.02 [facility], [place] [address] [facility] [id number] [address] [place] [address] Nov, Depression, major, recurrent , moderate 296.32 [facility], [place] [address] [facility] [id number] [address] [place] [address] Nov, Depression, major, recurrent , moderate 296.32 [facility], [place] [address] [place] [id number] [address] [place] [address] October, Generalized anxiety disorder 300.02 ; No condition on Rawlins II V71.09 and Major depressive disorder, recurrent 296.30 [facility], [place] [address] [facility] [id number] [address] [place] [address] 14 Sep, 2014 [facility], [place] [address] [facility] [id number] [address] [place] [address] Sep, [facility], [place] [address] [place] [id number] [address] [place] [address] Aug, [facility], [place] [address] [place] [address] [id number] [address] [place] [address] Aug, [facility], [place] [address] [facility] [id number] [address] [place] [address] Aug, [facility], [place] [address] [facility] [id number] [address] [place] [address] Aug, [facility], [place] [address] [facility] [id number] [address] [place] [address] Aug, [facility], [place] [address] [facility] [id number] [address] [place] [address] Aug, [facility], [place] [address] [facility] [id number] [address] [place] [address] 20 Aug, 2014 [facility] [address] [id number] [address] [place] [address], [place] [address] 20 Aug, 2014 [facility] [address] [id number] [address] [place] [address], [place] [address] 13 Aug, 2014 [facility] [address] [id number] [address] [place] [address], [place] [address] 13 Aug, 2014 [facility] [address] [id number] [address] [place] [address], [place] [address] 13 Aug, 2014 [facility] [address] [id number] [address] [place] [address], [place] [address] Aug, [facility] [address] [id number] [address] [place] [address], [place] [address] Aug, [facility] [address] [id number] [address] [place] [address], [place] [address] Aug, [facility] [address] [id number] [address] [place] [address], [place] [address] 10 Aug, 2014 [facility] [address] [id number] [address] [place] [address], [place] [address] 10 Aug, 2014 [facility] [address] [id number] [address] [place] [address], [place] [address] Aug, [facility] [address] [id number] [address] [place] [address], [place] [address] Aug, [facility] [address] [id number] [address] [place] [address], [place] [address] 24 Jul, 2014 [facility] [address] [id number] [address] [place] [address], [place] [address] Jul, [facility] [address] [id number] [address] [place] [address], [place] [address] 16 Jul, 2014 [facility] [address] [id number] [address] [place] [address], [place] [address] 16 Jul2014 [facility] [address] [id number] [address] [place] [address], [place] [address] Jul, [facility] [address] [id number] [address] [place] [address], [place] [address] Jul, [facility] [address] [id number] [address] [place] [address], [place] [address] Jun, [facility] [address] [id number] [address] [place] [address], [place] [address] Jun, [facility] [address] [id number] [address] [place] [address], [place] [address] Jun, [facility] [address] [id number] [address] [place] [address], [place] [address] Jun, [facility] [address] [id number] [address] [place] [address], [place] [address] Jun, [facility] [address] [id number] [address] [place] [address], [place] [address] Jun, [facility] [address] [id number] [address] [place] [address], [place] [address] Jun, [facility] [address] [id number] [address] [place] [address], [place] [address] Jun, [facility] [address] [id number] [address] [place] [address], [place] [address] Jun, [facility] [address] [id number] [address] [place] [address], [place] [address] Jun, [facility] [address] [id number] [address] [place] [address], [place] [address] Jun, [facility] [address] [id number] [address] [place] [address], [place] [address] Jun, [facility] [address] [id number] [id number] Jun, [facility] [address] [id number] [address] [place] [address] [address] Jun, [facility] [address] [id number] [address] [place] [address], [place] [address] Jun, [facility] [address] [id number] [address] [place] [address], [place] [address] Jun, [facility] [address] [id number] [address] [place] [address], [place] [address] May, [facility] [address] [id number] [address] [place] [address], [place] [address] May, [facility] [address] [id number] [address] [place] [address], [place] [address] May, [facility] [address] [id number] [address] [place] [address], [place] [address] May, [facility] [address] [id number] [address] [place] [address], [place] [address] Apr, [facility] [address] [id number] [address] [place] [address], [place] [address] Apr, [facility] [address] [id number] [address] [place] [address], [place] [address] Apr, [facility] [address] [id number] [address] [place] [address], [place] [address] Apr, [facility] [address] [id number] [address] [place] [address] Apr, [facility] [address] [id number] [address] [place] [address] Apr, [facility] [address] [id number] [address] [place] [address], [place] [address] Apr, [facility] [address] [id number] [address] [place] [address], [place] [address] Apr, [facility] [address] [id number] [address] [place] [address], [place] [address] Apr, [facility] [address] [id number] [address] [place] [address], [place] [address] Apr, [facility] [address] [id number] [address] [place] [address], [place] [address] Apr, [facility] [address] [id number] [address] [place] [address], [place] [address] Apr, [facility] [address] [id number] [address] [place] [address], [place] [address] Apr, [facility] [address] [id number] [address] [place] [address], [place] [address] Apr, [facility] [address] [id number] [address] [place] [address], [place] [address] Apr, [facility] [address] [id number] [address] [place] [address], [place] [address] Apr, [facility] [address] [id number] [address] [place] [address], [place] [address] Apr, [facility] [address] [id number] [address] [place] [address], [place] [address] Apr, [facility] [address] [id number] [address] [place] [address], [place] [address] Apr, [facility] [address] [id number] [address] [place] [address], [place] [address] Apr, [facility] [address] [id number] [address] [place] [address], [place] [address] Mar, [facility] [address] [id number] [address] [place] [address], [place] [address] Mar, [facility] [address] [id number] [address] [place] [address], [place] [address] Mar, [facility] [address] [id number] [address] [place] [address], [place] [address] Mar, [facility] [address] [id number] [address] [place] [address], [place] [address] Mar, [facility] [address] [id number] [address] [place] [address], [place] [address] Mar, [facility] [address] [id number] [address] [place] [address], [place] [address] Mar, [facility] [address] [id number] [address] [place] [address], [place] [address] Mar, [facility] [address] [id number] [address] [place] [address], [place] [address] Mar, [facility] [address] [id number] [address] [place] [address], [place] [address] Mar, [facility] [address] [id number] [address] [place] [address], [place] [address] Feb, [facility] [address] [id number] [address] [place] [address], [place] [address] Feb, [facility] [address] [id number] [address] [place] [address], [place] [address] Feb, [facility] [address] [id number] [address] [place] [address], [place] [address] Feb, [facility] [address] [id number] [address] [place] [address], [place] [address] Jan, [facility] [address] [id number] [address] [place] [address], [place] [address] Jan, [facility] [address] [id number] [address] [place] [address], [place] [address] Jan, [facility] [address] [id number] [address] [place] [address], [place] [address] Jan, [facility] [address] [id number] [address] [place] [address], [place] [address] Jan, [facility] [address] [id number] [address] [place] [address], [place] [address] Jan, [facility] [address] [id number] [address] [place] [address], [place] [address] Dec, [facility] [address] [id number] [facility] [place] [address] Dec, [facility] [address] [id number] [address] [place] [address], [place] [address] Nov, [facility] [address] [id number] [address] [place] [address], [place] [address] Nov, [facility] [address] [id number] [address] [place] [address], [place] [address] Nov, [facility] [address] [id number] [address] [place] [address], [place] [address] Nov, [facility] [address] [id number] [address] [place] [address], [place] [address] Nov, [facility] [address] [id number] [address] [place] [address], [place] [address] Nov, [facility] [address] [id number] [address] [place] [address], [place] [address] Sep, [facility] [address] [id number] [address] [place] [address], [place] [address] Sep, [facility] [address] [id number] [address] [place] [address], [place] [address] Sep, [facility] [address] [id number] [address] [place] [address], [place] [address] Sep, [facility] [address] [id number] [address] [place] [address], [place] [address] Aug, [facility] [address] [id number] [address] [place] [address], [place] [address] Aug, [facility] [address] [id number] [address] [place] [address], [place] [address] Jul, [facility] [address] [id number] [address] [place] [address], [place] [address] Jul, [facility] [address] [id number] [address] [place] [address], [place] [address] Jun, [facility] [address] [id number] [address] [place] [address], [place] [address] Jun, [facility] [address] [id number] [address] [place] [address], [place] [address] Jun, [facility] [address] [id number] [address] [place] [address], [place] [address] Jun, [facility] [address] [id number] [address] [place] [address], [place] [address] May, [facility] [address] [id number] [address] [place] [address], [place] [address] May, [facility] [address] [id number] [address] [place] [address], [place] [address] May, [facility] [address] [id number] [address] [place] [address], [place] [address] May, [facility] [address] [id number] [address] [place] [address], [place] [address] May, [facility] [address] [id number] [address] [place] [address], [place] [address] May, [facility] [address] [id number] [address] [place] [address], [place] [address] Apr, [facility] [address] [id number] [address] [place] [address], [place] [address] Apr, [facility] [address] [id number] [address] [place] [address], [place] [address] Apr, [facility] [address] [id number] [address] [place] [address], [place] [address] Apr, [facility] [address] [id number] [address] [place] [address], [place] [address] Mar, [facility] [address] [id number] [address] [place] [address], [place] [address] Mar, [facility] [address] [id number] [address] [place] [address], [place] [address] Mar, [facility] [address] [id number] [address] [place] [address], [place] [address] Mar, [facility] [address] [id number] [address] [place] [address], [place] [address] Feb, [facility] [address] [id number] [place] [id number] Jan, [facility] [address] [id number] [address] [place] [address], [place] [address] Jan, [facility] [address] [id number] [address] [place] [address], [place] [address] Dec, [facility] [address] [id number] [address] [place] [address], [place] [address] Dec, [facility] [address] [id number] [address] [place] [address], [place] [address] Dec, [facility] [address] [facility] [address] [id number] [place] [id number] Dec, [facility] [address] [id number] [address] [place] [address], [place] [address] Nov, [facility] [address] [id number] [address] [place] [address], [place] [address] Nov, [facility] [address] [id number] [address] [place] [address] Nov, [facility] [address] [id number] [address] [place] [address], [place] [address] Nov, [facility] [address] [id number] [address] [place] [address], [place] [address] Nov, [facility] [address] [id number] [address] [place] [address], [place] [address] October, [facility] [address] [id number] [address] [place] [address] October, [facility] [place] [address] [facility] [id number] [address] [address] Aug, [facility] [place] [address] [facility] [id number] [address] [address] 13 Nov, 2011 IMMUNIZATIONS No Known Immunizations [...]
--- OUTSIDE RECORDS SUMMARY | 2019-11-29 09:38 | XMS REPORT ---
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 Receiving Operator Name Role Phone CHRIS DIAZ Unavailable PROBLEMS Type Condition ICD9-CM Code QSG76-ZV Code Onset Dates Condition S tatus SNOMED Code Problem Edema R60.9 Active 897970423 Problem Morbid obesity E66.01 Active 05362 6002 Problem Metabolic syndrome E88.81 Active 2 42805459 Problem Renal insufficiency N28.9 Active 994041007 Problem Vitamin D deficiency E55.9 Active 86878921 Problem Severe episode of recurrent major depressive disorder, without psychotic features F33.2 Active 05773590 Problem DANIELA (generalized anxiety disorder) F41.1 Active 88249697 Problem Mixed obsessional thoughts and acts F42.2 Active 76892824 Problem Chronic fatigue R53.82 Active 8422 9001 Problem Other chronic pain G89.29 Active 8 2069845 Problem Borderline personality disorder F60.3 Active 25025817 Problem Attachment disorder F94.1 Active Problem Sciatica, right side M54.31 Active 981273027227814 Problem Insomnia G47.00 Active 560599722 Problem Anxiety F41.9 Active 57546945 Problem BMI 45.0-49.9, adult Z68.42 Active 410334725 Problem Hyperlipemia E78.5 Active 2201361 4 Problem Benign essential hypertension I10 Active 9198785 Problem Callous ulcer, limited to breakdown of skin L98.49 1 Active Problem Hammer toe of right foot M20.41 Activ e 674499736 Problem Hammer toe of second toe of right foot M20.41 Active 437695925 Problem Falling episodes R29.6 Active 161 [id number] ALLERGIES No Information ENCOUNTERS Encounter Location Date Diagnosis [facility] [address] [facility] [id number] [place] [address] Dec, [facility] [address] [place] [id number] [address] [place] [phone] Dec, [facility] [address] [id number], [place] [id number] Dec, [facility] [place] [facility] [address] [facility] [id number] [address] [place] [phone] Dec, [facility] [address] [facility] [id number] [address] [place] [phone] Nov, [facility] [place] [facility] [address] [facility] [id number] [address] [place] [phone] October, [facility] [address] [facility] [id number] [address] [place] [phone] October, [facility] [address] 340[address] [id number] [address] October, [facility] [address] [id number], [place] [id number] October, [facility] [address] [facility] [id number] [place] [address] October, [facility] [address] [id number][place] [id number] Sep, [facility] [address] [facility] [id number] [address] [place] [phone] Sep, [facility] [address] [id number], [place] [id number] Sep, [facility] [address] [facility] [id number] [address] [place] [phone] Sep, [facility] [address] [facility] [id number] [address] [place] [phone] Sep, [facility] [address] [facility] [id number] [address] [place] [phone] Sep, [facility] [address] [facility] [id number] [address] [place] [phone] Sep, [facility] [address] [facility] [id number] [address] [place] [phone] Sep, DANIELA (generalized anxiety dis order) F41.1 ; Severe episode of recurrent major depressive disorder, without psychotic features F33.2 ; Mixed obsessional thoughts and acts F42.2 and Borderline personality disorder F60.3 [facility] [address] [place] [address] [facility] [id number] [place] [address] Sep, Severe episode of recurrent major depres sive disorder, without psychotic features F33.2 [facility] [address] [id number], [place] [id number] Sep, [facility] [address] [id number], [place] [id number] Sep, [facility] [address] [id number], [place] [id number] Sep, Benign essential hypertension I10 [facility] [address] [facility] [id number] [address] [place] [phone] Sep, [facility] [address] [facility] [id number] [address] [place] [phone] Sep, [facility] [address] [facility] [id number] [address] [place] [phone] Sep, [facility] [address] [facility] [id number] [address] [place] [address] Sep, DANIELA (generalized anxiety dis order) F41.1 ; Severe episode of recurrent major depressive disorder, without psychotic features F33.2 ; Mixed obsessional thoughts and acts F42.2 and Borderline personality disorder F60.3 [facility] [address] [id number], [place] [id number] Aug, [facility] [address] [facility] [id number] [address] [place] [phone] Aug, [facility] [address] [id number], [place] [id number] Aug, [place] [address] [facility] [id number] [address] [place] [phone] 26 Aug, [address] [facility] [id number] [place] [address] [id number] 17 Aug, 2019 Dizzy R42 ; Weight gain R63.5 ; Benign e ssential hypertension I10 ; Falling episodes R29.6 and History of gastric bypass Z98.84 [place] [address] [place] [id number] [address] [place] [phone] 14 Aug, 2019 [place] [address] [place] [id number] [address] [place] [phone] 13 Aug, 2019 [place] [address] [address] 11 Aug, 2019 DANIELA (generalized anxiety dis order) F41.1 ; Severe episode of recurrent major depressive disorder, without psychotic features F33.2 ; Mixed obsessional thoughts and acts F42.2 and Borderline personality disorder F60.[address] [place] [id number] [place] [address] [id number] Aug, [place] [id number] [place] [address] [id number] Aug, [place] [address] [facility] [id number] [address] [place] [phone] Aug, [facility] [address] [id number], [place] [id number] Aug, [facility] [id number] [place] [address] [id number] Aug, [place] [address] [facility] [id number] [address] [place] [phone] Aug, [facility] [id number] [place] [address] [id number] Aug, Severe episode of recurrent major depres sive disorder, without psychotic features F33.2 ; Borderline personality disorder F60.3 ; Anxiety F41.9 and Attachment disorder F94.1 [place] [address] [facility] [id number] [address] [place] [phone] Jul, [facility] [address] [facility] [id number] [address] [place] [phone] 24 Jul, 2019 DANIELA (generalized anxiety dis order) F41.1 ; Severe episode of recurrent major depressive disorder, without psychotic features F33.2 ; Mixed obsessional thoughts and acts F42.2 and Borderline personality disorder F60.[id number] [place] [address] [id number] Jul, [facility] [address] [facility] [id number] [address] [place] [phone] Jul, [facility] [address] [facility] [id number] [address] [place] [phone] 14 Jul, 2019 [facility] [address] [facility] [id number] [address] [place] [phone] Jul, [facility] [address] [facility] [id number] [address] [place] [phone] Jul, [facility] [address] [facility] [id number] [address] [place] [phone] Jun, DANIELA (generalized anxiety dis order) F41.1 ; Severe episode of recurrent major depressive disorder, without psychotic features F33.2 ; Mixed obsessional thoughts and acts F42.2 and Borderline personality disorder F60.[id number] [place] [address] [id number] Jun, [id number] [place] [address] [id number] Jun, [facility] [address] [facility] [id number] [address] [place] [phone] Jun, [facility] [address] [facility] [id number] [address] [place] [phone] Jun, DANIELA (generalized anxiety dis order) F41.1 ; Severe episode of recurrent major depressive disorder, without psychotic features F33.2 ; Mixed obsessional thoughts and acts F42.2 and Borderline personality disorder F60.3 [facility] [address] [facility] [address] [id number], [place] [id number] Jun, [facility] [address] [id number], [place] [id number] Jun, [address] [id number], [place] [id number] Jun, [facility] [address] [id number], [place] [id number] Jun, Benign essential hypertension I10 ; Morb id obesity E66.01 ; Severe episode of recurrent major depressive disorder, without psychotic features F33.2 ; Excess skin L98.7 and Hyperlipemia E78.5 [place] [address] [place] [id number] [address] [place] [phone] Jun, [facility] [address] [place] [id number] [address] [place] [phone] May, [facility] [address] [place] [id number] [address] [place] [phone] May, Severe episode of recurrent major depressive disorder, without psychotic features F33.2 ; Mixed obsessional thoughts and acts F42.2 ; DANIELA (generalized anxiety disorder) F41.1 and Borderline personality disorder F60.3 [facility] [address] [place] [id number] [address] [place] [phone] May, [facility] [address] [place] [id number] [address] [place] [phone] 13 May, 2019 DANIELA (generalized anxiety dis order) F41.1 ; Severe episode of recurrent major depressive disorder, without psychotic features F33.2 ; Mixed obsessional thoughts and acts F42.2 and Borderline personality disorder F60.3 [facility] [address] [facility] [id number] [address] [place] [phone] May, [facility] [address] [place] [id number] [address] [place] [phone] May, [facility] [address] [facility] [id number] [address] [place] [phone] May, Severe episode of recurrent major depressive disorder, without psychotic features F33.2 ; Mixed obsessional thoughts and acts F42.2 ; Borderline personality disorder F60.3 and DANIELA (generalized anxiety disorder) F41.1 [facility] [address] [id number] [address] [place] [address] [phone] May, Caries K02.9 [facility] [address] [id number], [place] [id number] May, Benign essential hypertension I10 [facility] [address] [id number], [place] [id number] Apr, [facility] [id number] [place] [address] [id number] Apr, Benign essential hypertension I10 [facility] [address] [place] [id number] [address] [place] [phone] Apr, Borderline personality disor romreo F60.3 ; DANIELA (generalized anxiety disorder) F41.1 ; Mixed obsessional thoughts and acts F42.2 and Severe episode of recurrent major depressive disorder, without psychotic features F33.2 [facility] [address] [id number], [place] [id number] Apr, [facility] [address] [id number], [place] [id number] Apr, Benign essential hypertension I10 [facility] [address] [facility] [id number] [address] [place] [phone] 06 Apr, 2019 Severe episode of recurrent major depressive disorder, without psychotic features F33.2 ; DANIELA (generalized anxiety disorder) F41.1 ; Borderline personality disorder F60.3 and Mixed obsessional thoughts and acts F42.2 [facility] [address] [id number] [address] [place] [address] [phone] Apr, Dental examination Z01.20 [facility] [address] [id number] [address] [place] [address] [phone] Apr, Caries K02.9 and Dental exam ination Z01.20 [facility] [address] [facility] [id number] [address] [place] [phone] Apr, DANIELA (generalized anxiety dis order) F41.1 ; Severe episode of recurrent major depressive disorder, without psychotic features F33.2 ; Mixed obsessional thoughts and acts F42.2 and Borderline personality disorder F60.3 [facility] [address] [facility] [id number] [address] [place] [phone] Mar, Severe episode of recurrent major depressive disorder, without psychotic features F33.2 ; Mixed obsessional thoughts and acts F42.2 ; Borderline personality disorder F60.3 and DANIELA (generalized anxiety disorder) F41.1 [facility] [address] [facility] [id number] [address] [place] [phone] Mar, Severe episode of recurrent major depressive disorder, without psychotic features F33.2 ; Mixed obsessional thoughts and acts F42.2 ; DANIELA (generalized anxiety disorder) F41.1 and Borderline personality disorder F60.3 [facility] [address] [id number] [address] [place] [address] [id number] Mar, Dental examination Z01.20 an d Caries K02.[address] [place] [id number] [place] [address] [phone] Mar, Benign essential hypertension I10 and Fa lling episodes R29.6 [facility] [address] [facility] [id number] [address] [place] [phone] Mar, [facility] [address] [facility] [id number] [address] [place] [phone] Mar, Severe episode of recurrent major depressive disorder, without psychotic features F33.2 ; Mixed obsessional thoughts and acts F42.2 ; Borderline personality disorder F60.3 and DANIELA (generalized anxiety disorder) F41.1 [facility] [address] [facility] [id number] [address] [place] [phone] Mar, [facility] [address] [facility] [id number] [address] [place] [phone] Mar, [facility] [address] [id number], [place] [id number] Mar, [facility] [address] [facility] [id number] [address] [place] [phone] Mar, Severe episode of recurrent major depressive disorder, without psychotic features F33.2 ; Mixed obsessional thoughts and acts F42.2 ; Borderline personality disorder F60.3 and DANIELA (generalized anxiety disorder) F41.1 [facility] [address] [facility] [id number] [address] [place] [phone] Mar, [facility] [address] [facility] [id number] [address] [place] [address] [phone] Feb, Dental examination Z01.20 an d Periodontitis K05.30 [facility] [address] [facility] [id number] [address] [place] [phone] Feb, DANIELA (generalized anxiety dis order) F41.1 ; Severe episode of recurrent major depressive disorder, without psychotic features F33.2 ; Mixed obsessional thoughts and acts F42.2 and Borderline personality disorder F60.3 [facility] [place] [address] [place] [address] AVE [id number], [place] [id number] Feb, Acute pain of right knee M25.561 ; Fall, initial encounter W19.XXXA ; Benign essential hypertension I10 and Edema R60.9 [facility] [address] [facility] [id number] [address] [place] [phone] Feb, [facility] [address] [facility] [id number] [address] [place] [phone] Feb, DANIELA (generalized anxiety dis order) F41.1 ; Severe episode of recurrent major depressive disorder, without psychotic features F33.2 ; Mixed obsessional thoughts and acts F42.2 and Borderline personality disorder F60.3 [facility] [address] [facility] [id number] [address] [place] [phone] Feb, [facility] [address] [facility] [id number] [address] [place] [phone] Jan, [facility] [address] [facility] [id number] [address] [place] [phone] Jan, [facility] [address] [facility] [id number] [address] [place] [phone] Jan, [facility] [id number] [place] [address] [id number] Jan, Callus of heel L84 ; Fissure in skin R23 .4 and Hammer toe of second toe of right foot M20.41 [facility] [address] [place] [address] [id number] [place] [address] [id number] Jan, [facility] [address] [facility] [id number] [address] [place] [phone] Jan, [facility] [address] [address] Jan, [facility] [address] [place] [id number] [address] [place] [phone] Jan, Severe episode of recurrent major depressive disorder, without psychotic features F33.2 ; DANIELA (generalized anxiety disorder) F41.1 ; Mixed obsessional thoughts and acts F42.2 and Borderline personality disorder F60.3 [facility] [address] [facility] [id number] [address] [place] [phone] Jan, [facility] [id number] [place] [address] [id number] Jan, Benign essential hypertension I10 [facility] [id number] [place] [address] [id number] Dec, Callous ulcer, limited to breakdown of s kin L98.491 and Morbid obesity E66.01 [facility] [address] [facility] [id number] [address] [place] [phone] Dec, [facility] [address] [place] [id number] [address] [place] [phone] Dec, [facility] [address] [id number] [address] [place] [phone] Dec, [facility] [address] [id number] [address] [place] [phone] Dec, [facility] [address] [facility] [id number] [address] [place] [phone] Dec, Severe episode of recurrent major depressive disorder, without psychotic features F33.2 [facility] [address] [facility] [id number] [address] [place] [phone] Dec, DANIELA (generalized anxiety dis order) F41.1 ; Severe episode of recurrent major depressive disorder, without psychotic features F33.2 ; Mixed obsessional thoughts and acts F42.2 and Dependent personality disorder F60.7 [facility] [address] [id number], [place] [id number] Dec, Morbid obesity E66.01 [facility] [address] [facility] [id number] [address] [place] [phone] Dec, [facility] [address] [facility] [id number] [address] [place] [phone] Dec, [facility] JENNY [address] [id number], [place] [address] Nov, [facility] [address] [id number], [place] [id number] Nov, [facility] [address] [facility] [id number] [address] [place] [phone] Nov, [facility] [address] [facility] [id number] [address] [place] [phone] Nov, [facility] [address] [facility] [id number] [address] [place] [phone] Nov, DANIELA (generalized anxiety dis order) F41.1 ; Severe episode of recurrent major depressive disorder, without psychotic features F33.2 ; Mixed obsessional thoughts and acts F42.2 and Dependent personality disorder F60.[address] [facility] [address] [id number], [place] [id number] Nov, Morbid obesity E66.01 [facility] [address] [facility] [id number] [address] [place] [phone] Nov, [facility] [address] [facility] [id number] [address] [place] [phone] Nov, DANIELA (generalized anxiety dis order) F41.1 ; Mixed obsessional thoughts and acts F42.2 ; Severe episode of recurrent major depressive disorder, without psychotic features F33.2 and Dependent personality disorder F60.[address] [id number], [place] [id number] October, Morbid obesity E66.[address] [id number], [place] [id number] October, Benign essential hypertension I10 and Mo rbid obesity E66.[address] [id number], [place] [id number] October, [facility] [address] [facility] [id number] [address] [place] [phone] October, Severe episode of recurrent major depressive disorder, without psychotic features F33.[address] [id number], [place] [id number] October, Morbid obesity E66.[address] [id number] [place] [address] [id number] October, [facility] [address] [facility] [id number] [address] [place] [phone] October, Severe episode of recurrent major depressive disorder, without psychotic features F33.2 ; DANIELA (generalized anxiety disorder) F41.1 ; Mixed obsessional thoughts and acts F42.2 and Dependent personality disorder F60.[address] [id number], [place] [id number] October, Morbid obesity E66.01 [facility] [address] [id number] [address] [place] [id number] Sep, [facility] examination Z01.[address] [facility] [id number] [id number] [id number] Sep, [facility] [address] [facility] [id number] [place] [address] Sep, Sore in mouth K13.79 and Mor bid obesity E66.01 [facility] [address] [facility] [id number] [place] [address] Sep, Dental examination Z01.20 [facility] [address] [facility] [id number] [address] [place] [id number] Sep, Anxiety disorder, unspecifie d F41.9 [facility] [id number] [id number] Sep, Mouth ulcer K12.1 [facility] [id number] [id number] Sep, Morbid obesity E66.01 [facility] [id number] [id number] Sep, Allergic rhinitis, unspecified seasonali ty, unspecified trigger J30.9 and Shortness of breath R06.02 [facility] [id number] [id number] Sep, 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 [facility] [address] [id number], [place] [id number] Aug, Mouth abscess K12.2 ; Mouth ulcer K12.1 ; Bloating R14.0 and Morbid obesity E66.01 [facility] [address] [id number], [place] [id number] Aug, [facility] [id number], [place] [id number] Aug, [facility] [address] [id number], [place] [id number] Jul, Major depressive disorder, recurrent, mo derate F33.1 ; Abscess of arm, left L02.414 ; BMI 45.0-49.9, adult Z68.42 and Morbid obesity E66.01 [facility] [id number], [place] [id number] Jul, [facility] [id number], [place] [id number] Jul, [facility] [id number], [place] [id number] Jun, Pain in right knee M25.561 and Other chr onic pain G89.29 [facility] [address] [id number], [place] [id number] Jun, Benign essential hypertension I10 ; BMI 45.0-49.9, adult Z68.42 ; Morbid obesity E66.01 ; Vitamin D deficiency E55.9 ; Insomnia G47.00 ; Dependent personality disorder F60.7 ; Edema R60.9 ; Recurrent major depressive disorder, in partial remission F33.41 ; Chronic fatigue R53.82 ; Acute pain of right knee M25.561 ; Metabolic syndrome E88.81 and Irritable mood R45.4 [place] [address] [place] [phone] Jun, [facility] [id number], [place] [id number] Jun, Irritable mood R45.4 [place] [address] [place] [id number] [address] [place] [phone] May, [facility] [address] [place] [phone] May, [place] [address] [place] [id number] [address] [place] [phone] May, Recurrent major depressive d isorder, in partial remission F33.41 ; Mixed obsessional thoughts and acts F42.2 ; Dependent personality disorder F60.7 and BMI 45.0-49.9, adult Z68.42 [facility] [address] [facility] [id number] [address] [place] [phone] 27 Apr, 2018 [facility] [address] [facility] [id number] [address] [place] [phone] Apr, [facility] [address] [facility] [id number] [address] [place] [phone] 14 Apr, 2018 [facility] [address] [place] [id number] [address] [place] [phone] Apr, [place] [address] [place] [id number] [address] [place] [phone] Mar, Mixed obsessional thoughts a nd acts F42.2 ; Recurrent major depressive disorder, in partial remission F33.41 ; DANIELA (generalized anxiety disorder) F41.1 and BMI 45.0-49.9, adult Z68.[address] [place] [address] [id number], [place] [id number] Mar, [place] [id number] [place] [address] [id number] Mar, BMI 45.0-49.9, adult Z68.42 ; Instabilit y of right knee joint M25.361 and Rash R21 [place] [address] [place] [id number] [address] [place] [phone] Jan, Recurrent major depressive d isorder, in partial remission F33.41 ; Mixed obsessional thoughts and acts F42.2 and BMI 45.0-49.9, adult Z68.[address] [place] [id number] [place] [address] [id number] Jan, [place] [id number] [place] [address] [id number] Jan, Benign essential hypertension I10 ; BMI 45.0-49.9, adult Z68.42 ; Metabolic syndrome E88.81 and Allergic rhinitis, unspecified seasonality, unspecified trigger J30.9 [place] [address] [place] [id number] [address] [place] [phone] Dec, DANIELA (generalized anxiety dis order) F41.1 and Depressive disorder, not elsewhere classified F32.[address] [facility] [address] [id number], [place] [id number] Dec, Recurrent major depressive disorder, in partial remission F33.[address] [facility] [address] [id number], [place] [id number] Dec, [facility] [address] [id number], [place] [id number] Nov, [facility] [address] [id number], [place] [id number] Nov, Recurrent major depressive disorder, in partial remission F33.41 [facility] [address] [place] [id number] [address] [place] [phone] Nov, Recurrent major depressive d isorder, in partial remission F33.41 ; Mixed obsessional thoughts and acts F42.2 ; DANIELA (generalized anxiety disorder) F41.1 and BMI 45.0-49.9, adult Z68.[address] [facility] [address] [address] [id number], [place] [id number] Nov, [facility] [address] [id number], [place] [id number] Nov, Other conjunctivitis of both eyes H10.89 and Sciatica, right side M54.31 [facility] [address] [id number], [place] [id number] Nov, [facility] [address] [id number], [place] [id number] Nov, [facility] [address] [id number], [place] [id number] October, [facility] [address] [id number], [place] [id number] October, [facility] [address] [facility] [id number] [address] [place] [phone] October, BMI 45.0-49.9, adult Z68.42 ; Mixed obsessional thoughts and acts F42.2 ; Recurrent major depressive disorder, in partial remission F33.41 and DANIELA (generalized anxiety disorder) F41.1 [facility] [address] [id number], [place] [id number] October, Benign essential hypertension I10 ; Morb id obesity E66.01 and BMI 45.0-49.9, adult Z68.42 [facility] [id number], [place] [id number] Sep, [facility] [id number] [place] [address] [id number] Sep, [facility] [id number], [place] [id number] Sep, [facility] AV[id number] [place] [address] [id number] Sep, Hospital discharge follow-up Z09 ; Aller gic rhinitis, unspecified seasonality, unspecified trigger J30.9 and Shortness of breath R06.02 [facility] [id number], [place] [id number] Sep, Recurrent major depressive disorder, in partial remission F33.41 [facility] [id number], [place] [id number] Aug, Irritable mood R45.4 [place] [address] [place] [phone] Aug, [facility] [id number], [place] [id number] Jul, Benign essential hypertension I10 ; Robert a R60.9 and Impacted cerumen of left ear H61.22 [facility] [address] [facility] [id number] [address] [place] [phone] 14 Jul, 2017 Major depression F32.9 ; Rec urrent major depressive disorder, in partial remission F33.41 and Anxiety F41.9 [place] [address] [facility] [id number] [address] [place] [phone] Jun, Major depression F32.9 ; Rec urrent major depressive disorder, in partial remission F33.41 and Anxiety F41.9 [facility] [address] [id number], [place] [id number] Jun, Major depression F32.9 ; Morbid obesity E66.01 ; Irritable mood R45.4 ; Hand weakness R29.898 and Vitamin D deficiency E55.9 [facility] [address] [id number], [place] [id number] Jun, [facility] [address] [id number], [place] [id number] May, Major depression F32.9 [place] [address] [facility] [id number] [address] [place] [phone] May, Major depression F32.[address] [place] [address] [id number], [place] [id number] May, BMI 50.0-59.9, adult Z68.43 ; Major depr ession F32.9 ; Anxiety F41.9 ; Hypertrophic toenail L60.2 and Pain of left great toe M79.[address] [place] [address] [id number], [place] [id number] May, Recurrent major depressive disorder, in partial remission F33.41 [place] [address] [facility] [id number] [address] [place] [phone] Apr, [facility] [address] [id number], [place] [id number] Apr, [place] [address] [facility] [id number] [address] [place] [phone] Apr, Major depression F32.9 [facility] [address] [id number], [place] [id number] Apr, Severe episode of recurrent major depres sive disorder, without psychotic features F33.2 ; Anxiety F41.9 and Insomnia G47.00 [facility] [address] [id number], [place] [id number] Apr, [facility] [address] [facility] [id number] [address] [place] [phone] Apr, [place] [id number] [place] [address] [id number] Apr, [facility] [address] [id number], [place] [id number] Mar, [place] [id number] [place] [address] [id number] Mar, Allergic conjunctivitis of both eyes H10 .13 [place] [address] [facility] [id number] [address] [place] [phone] Mar, Major depression F32.[address] [place] [id number] [place] [address] [id number] Mar, Metabolic syndrome E88.81 ; History of g astric bypass Z98.890 ; Benign essential hypertension I10 ; Allergic conjunctivitis of both eyes H10.13 and Morbid obesity E66.01 [facility] [address] [facility] [id number] [address] [place] [phone] Mar, Major depression F32.[address] [place] [address] [id number], [place] [id number] Feb, [facility] [address] [facility] [id number] [address] [place] [phone] Feb, Major depression F32.[address] [place] [id number] [place] [address] [id number] Feb, Subacute maxillary sinusitis J01.00 and Bronchitis J40 [facility] [address] [facility] [id number] [address] [place] [phone] 06 Feb, 2017 Major depressive disorder, r ecurrent, moderate F33.[address] [place] [address] [id number], [place] [id number] Jan, [facility] [id number], [place] [id number] Jan, Acute non-recurrent maxillary sinusitis J01.00 and Skin tag L91.8 [facility] [address] [place] [address] A[place] [id number], [place] [id number] Jan, Cough R05 and Sinus congestion R09.81 [facility] [id number], [place] [id number] Jan, [facility] [address] [id number], [place] [id number] Jan, Benign essential hypertension I10 ; Hist ory of gastric bypass Z98.890 and Nausea and vomiting in adult R11.2 [facility] [address] [facility] [id number] [address] [place] [phone] Jan, Major depressive disorder, r ecurrent, moderate F33.1 [facility] [address] [facility] [id number] [address] [place] [phone] Dec, Insomnia G47.00 ; Recurrent major depressive disorder, in partial remission F33.41 and Morbid obesity E66.01 [facility] [id number], [place] [id number] Dec, [facility] [id number], [place] [id number] Dec, Chronic bacterial conjunctivitis of left eye H10.402 [facility] [address] [facility] [id number], [place] [id number] Nov, [facility] [id number], [place] [id number] Nov, Dental examination Z01.20 [facility] [address] [facility] [address] [id number], [place] [id number] Nov, Benign essential hypertension I10 ; Hist ory of gastric bypass Z98.890 and Nausea and vomiting in adult R11.2 [place] [address] [facility] [id number] [address] [place] [phone] 13 Nov, 2016 Major depressive disorder, r ecurrent, moderate F33.1 ; Generalized anxiety disorder F41.1 and Insomnia due to other mental disorder F51.05 [place] [address] [facility] [id number] [address] [place] [phone] Nov, Recurrent major depressive d isorder, in partial remission F33.41 ; Insomnia G47.00 and Morbid obesity E66.01 [facility] [address] [id number] [place] [id number] October, Abscess of left arm L02.414 [place] [address] [facility] [id number] [address] [place] [phone] October, Morbid obesity E66.01 ; Lida r depression F32.9 and Recurrent major depressive disorder, in partial remission F33.[address] [place] [id number] [place] [address] [id number] Sep, Benign essential hypertension I10 ; Morb id obesity E66.01 ; S/P gastric bypass Z98.84 ; Abscess L02.91 and Chronic bacterial conjunctivitis of left eye H10.[address] [id number] [place] [address] [id number] Sep, Dental examination Z01.[address] [id number] [address] [place] [phone] Sep, Morbid obesity E66.01 ; Lida r depression F32.9 and Recurrent major depressive disorder, in partial remission F33.41 [place] [address] [facility] [id number] [address] [place] [phone] Jul, [place] [address] [facility] [id number] [address] [place] [phone] Jul, Major depressive disorder, r ecurrent, moderate F33.1 [place] [address] [facility] [id number] [address] [place] [phone] Jul, Major depressive disorder, r ecurrent, moderate F33.1 and Generalized anxiety disorder F41.1 [facility] [id number] [place] [address] [id number] Jul, Cough R05 [facility] [address] [facility] [id number] [address] [place] [phone] Jul, Morbid obesity E66.01 ; Lida r depression F32.9 and Recurrent major depressive disorder, in partial remission F33.41 [facility] [address] [id number], [place] [id number] Jul, [facility] [id number] [place] [address] [id number] Jul, [facility] [address] [address] [id number] [place] [address] [id number] Jul, Gastroenteritis K52.9 and Cough R05 [address] [id number] [place] [address] [id number] Jun, Acute bacterial conjunctivitis of left e ye H10.32 [facility] [address] [place] [phone] Jun, [facility] [address] [facility] [id number] [address] [place] [phone] Jun, Recurrent major depressive d isorder, in partial remission F33.41 [facility] [address] [facility] [id number] [address] [place] [phone] May, Major depression F32.9 and M orbid obesity E66.01 [facility] [address] [facility] [id number] [address] [place] [phone] May, [facility] [id number] [place] [address] [id number] May, Thrush B37.0 [facility] [address] [facility] [id number] [address] [place] [phone] Apr, Major depressive disorder, r ecurrent, moderate F33.1 [facility] [address] [facility] [id number] [address] [place] [phone] Apr, Insomnia G47.00 ; Major depr ession F32.9 and Recurrent major depressive disorder, in partial remission F33.41 [facility] [address] [facility] [id number] [address] [place] [phone] Apr, [facility] [address] [facility] [id number] [address] [place] [phone] Apr, Major depression F32.9 and R ecurrent major depressive disorder, in partial remission F33.41 [facility] [id number] [place] [address] [id number] Mar, Benign essential hypertension I10 ; Morb id obesity E66.01 ; Impacted cerumen of both ears H61.23 ; Laceration of finger of right hand, initial encounter S61.219A and Encounter for immunization Z23 [facility] [address] [facility] [id number] [address] [place] [phone] 17 Mar, 2016 [facility] [address] [facility] [id number] [address] [place] [phone] Mar, [facility] [address] [facility] [id number] [address] [place] [phone] Mar, [facility] [address] [id number], [place] [id number] Feb, Nausea R11.0 ; Blood in the stool K92.1 and Benign essential hypertension I10 [facility] [address] [facility] [id number] [address] [place] [phone] Feb, Major depression F32.9 and R ecurrent major depressive disorder, in partial remission F33.41 [facility] [address] [id number], [place] [id number] Feb, [facility] [address] [id number], [place] [id number] Feb, Recurrent major depressive disorder, in partial remission F33.[address] [facility] [address] [id number], [place] [id number] Jan, [facility] [address] [id number], [place] [id number] Jan, Benign essential hypertension I10 ; Robert a R60.9 and Hyperlipidemia, unspecified hyperlipidemia type E78.[address] [facility] [address] [address] [id number], [place] [id number] Jan, Recurrent major depressive disorder, in partial remission F33.41 [facility] [address] [id number] [place] [id number] Jan, [facility] [address] [id number], [place] [id number] Jan, [facility] [address] [id number], [place] [id number] Jan, [facility] [place] [facility] [address] [facility] [id number] [address] [place] [phone] Jan, [facility] [address] [facility] [id number] [address] [place] [phone] Dec, [facility] [address] [facility] [id number] [address] [place] [phone] Nov, [facility] [address] [facility] [id number] [address] [place] [phone] Nov, Major depression F32.9 [facility] [address] [facility] [id number] [address] [place] [phone] Nov, [facility] [place] [address] [facility] [id number] [address] [place] [phone] Nov, [facility] [address] [facility] [id number] [address] [place] [phone] Nov, Major depressive disorder, r ecurrent episode, mild F33.0 and Anxiety F41.[address] [facility] [address] [address] [id number], [place] [id number] Nov, [facility] [address] [facility] [id number], [place] [id number] October, Left elbow pain M25.522 and Other season al allergic rhinitis J30.[address] [id number], [place] [id number] October, [facility] [address] [facility] [id number] [address] [place] [phone] October, Major depressive disorder, r ecurrent, moderate F33.1 [facility] [address] [facility] [id number] [address] [place] [phone] October, Major depression F32.9 [place] [address] [facility] [id number] [address] [place] [phone] Sep, [place] or callus L84 and Onych omycosis B35.1 [place] [address] [facility] [id number] [address] [place] [phone] Sep, Major depressive disorder, r ecurrent, moderate F33.1 [facility] [address] [facility] [id number] [address] [place] [phone] Sep, Major depression F32.9 [place] [address] [facility] [id number] [address] [place] [phone] Sep, Moderate episode of recurren t major depressive disorder F33.[address] [id number], [place] [id number] Sep, Muscle strain T14.8 [facility] [address] [id number] [address] [place] [phone] Aug, Major depression F32.9 [place] [address] [facility] [id number] [address] [place] [phone] Aug, Major depression F32.9 [facility] [address] [facility] [id number] [address] [place] [phone] Jul, Morbid obesity E66.01 and Ma cora depression F32.9 [facility] [address] [facility] [id number] [address] [place] [phone] Jul, Depression, major, recurrent , moderate F33.1 [place] [id number] [facility] [id number] [id number] Jul, [facility] [address] [facility] [id number] [address] [place] [phone] Jul, [facility] [address] [facility] [id number] [address] [place] [phone] 16 Jul, 2015 Major depression F32.9 and M orbid obesity E66.01 [facility] [address] [facility] [id number] [id number] 11 Jul, 2015 Type II diabetes mellitus E11.9 ; Callus of foot L84 ; Benign essential hypertension I10 and Renal insufficiency N28.9 [facility] [address] [facility] [id number] [address] [place] [phone] 09 Jul, 2015 Depression, major, recurrent , moderate F33.1 [place] [address] [facility] [id number] [address] [place] [phone] Jul, Major depression F32.9 [facility] [address] [facility] [id number] [address] [place] [phone] Jul, [facility] [address] [place] [id number] [address] [place] [phone] Jun, Major depression F32.9 [facility] [address] [facility] [id number] [address] [place] [phone] Jun, Major depressive disorder, r ecurrent, moderate F33.1 [place] [address] [facility] [id number] [address] [place] [phone] Jun, [facility] [address] [facility] [id number] [address] [place] [phone] Jun, Major depressive disorder, r ecurrent, moderate F33.1 and Major depression F32.[address] [id number] [id number] Jun, Type II diabetes mellitus E11.9 [place] [address] [facility] [id number] [address] [place] [phone] Jun, Depression, major, recurrent , moderate F33.1 [place] [address] [facility] [id number] [address] [place] [phone] May, Major depressive disorder, r ecurrent, moderate F33.1 [place] [address] [facility] [id number] [address] [place] [phone] May, [id number] [place] [id number] May, Edema R60.9 [place] [address] [address] [place] [id number] [address] [place] [id number] May, Insomnia G47.00 and Major de pression F32.[address] [id number] [place] [address] [id number] 15 May, 2015 Morbid obesity E66.01 ; Edema R60.9 ; Sh ortness of breath R06.02 ; Benign essential hypertension I10 and Renal insufficiency N28.[address] [id number] [place] [address] [id number] May, Hyperlipemia 272.4 and Renal insufficien cy N28.9 [place] [address] [facility] [id number] [address] [place] [phone] Apr, Major depression F32.9 [place] [address] [facility] [id number] [address] [place] [phone] Apr, [place] [address] [facility] [id number] [address] [place] [id number] Apr, Major depressive disorder, r ecurrent, moderate F33.[address] [id number] [place] [address] [id number] Apr, Type II diabetes mellitus E11.9 ; Benign essential hypertension I10 ; Edema R60.9 and Renal insufficiency N28.9 [place] [address] [facility] [id number] [address] [place] [phone] Mar, Major depressive disorder, r ecurrent, moderate F33.1 [place] [address] [facility] [id number] [address] [place] [id number] Mar, [place] [address] [facility] [id number] [address] [place] [id number] Mar, Major depression F32.[address] [place] [id number] [place] [address] [id number] Mar, Morbid obesity E66.01 ; Benign essential hypertension I10 and Type II diabetes mellitus E11.9 [place] [address] [facility] [id number] [address] [place] [id number] Feb, Major depressive disorder, r ecurrent, moderate F33.1 [place] [address] [facility] [id number] [address] [place] [phone] Feb, Major depressive disorder, r ecurrent episode, in partial or unspecified remission 296.35 ; Anxiety state, unspecified 300.00 and Morbid obesity 278.01 [place] [address] [facility] [id number] [address] [place] [phone] Feb, [facility] [address] [id number] [id number] Feb, Vomiting 787.03 and Viral syndrome 079.9 9 [place] [address] [facility] [id number] [address] [place] [id number] 15 Feb, 2015 Major depression, recurrent 296.30 ; Generalized anxiety disorder 300.02 and No condition on [place] II V71.[address] [facility] [address] [id number] [id number] Feb, Skin tag 701.9 [place] [address] [facility] [id number] [address] [place] [phone] Feb, [facility] [address] [facility] [id number] [address] [place] [address] Jan, Depression, major, recurrent , moderate 296.[address] [id number] [id number] Jan, Nausea and vomiting 787.01 ; Rib pain on right side 786.50 and Fall on or from sidewalk curb E880.1 [facility] [address] [place] [id number] [address] [place] [id number] Jan, [facility] [address] [place] [id number] [address] [place] [phone] Jan, Major depressive disorder, r ecurrent episode, in partial or unspecified remission 296.35 and Anxiety state, unspecified 300.[address] [id number] [id number] Jan, [facility] [address] [facility] [id number] [address] [place] [phone] Jan, Depression, major, recurrent , moderate 296.32 [place] [address] [place] [id number] [address] [place] [phone] Jan, Major depression, recurrent 296.30 ; No condition on [place] II V71.09 and No condition on axis III V71.[address] [id number][place] [id number] Jan, Drug-induced nausea and vomiting 787.01 [facility] [address] [facility] [id number] [address] [place] [phone] Jan, Depression, major, recurrent , moderate 296.32 [place] [address] [facility] [id number] [address] [place] [phone] Dec, Depression, major, recurrent , moderate 296.32 [address] [id number][place] [id number] Dec, Morbid obesity 278.01 ; Metabolic syndro me 277.7 ; Hyperlipemia 272.4 ; Benign essential hypertension 401.1 ; Dietary counseling V65.3 ; Exercise counseling V65.41 and Inflamed skin tag 701.[address] [address] Dec, Depression, major, recurrent , moderate 296.[address] [address] Dec, [address] [address] Dec, Major depression, recurrent 296.30 ; Anxiety, generalized 300.02 and No condition on [place] II V71.[address] [address] Dec, Depression, major, recurrent , moderate 296.[address] [address] Dec, Major depressive disorder, r ecurrent episode, moderate 296.[address] [address] Dec, Depression, major, recurrent , moderate 296.[address] [address] Dec, Depression, major, recurrent , moderate 296.[address] [address] Dec, Depression, major, recurrent , moderate 296.[address] [address] Dec, Depression, major, recurrent , moderate 296.[address] [address] Nov, Depression, major, recurrent , moderate 296.[address] [address] Nov, Major depression 296.20 ; So cial phobia 300.23 and No condition on [place] II V71.09 [facility] [address] [id number] [address] [place] [id number] 16 Nov, 2014 Depression, major, recurrent , moderate 296.32 [facility] [address] [id number] [address] [place] [id number] 09 Nov, 2014 Major depressive disorder, r ecurrent episode, moderate 296.32 and Generalized anxiety disorder 300.02 [facility] [address] [id number] [address] [place] [id number] 09 Nov, 2014 Depression, major, recurrent , moderate 296.32 [facility] [address] [facility] [id number] [address] [place] [id number] 04 Nov, 2014 Depression, major, recurrent , moderate 296.32 [facility] [address] [facility] [id number] [address] [place] [phone] October, Generalized anxiety disorder 300.02 ; No condition on [place] II V71.09 and Major depressive disorder, recurrent 296.30 [facility] [address] [facility] [id number] [address] [place] [phone] 14 Sep, 2014 [facility] [address] [facility] [id number] [address] [place] [phone] Sep, [facility] [address] [facility] [id number] [address] [place] [id number] 24 Aug, 2014 [facility] [address] [facility] [id number] [address] [place] [id number] 24 Aug, 2014 [facility] [address] [facility] [id number] [address] [place] [phone] Aug, [facility] [address] [facility] [id number] [address] [place] [id number] 23 Aug, 2014 [facility] [address] [facility] [id number] [address] [place] [id number] Aug, [facility] [address] [facility] [id number] [address] [place] [id number] 20 Aug, 2014 [facility] [address] [id number] [address] [place] [address], [place] [address] 20 Aug, 2014 [facility] [address] [id number] [address] [place] [address], [place] [address] 20 Aug, 2014 [facility] [address] [id number] [address] [place] [address], [place] [address] 13 Aug, 2014 [facility] [address] [id number] [address] [place] [address], [place] [address] 13 Aug, 2014 [facility] [address] [id number] [address] [place] [address], [place] [address] 13 Aug, 2014 [facility] [address] [id number] [address] [place] [address], [place] [address] 13 Aug, 2014 [facility] [address] [id number] [address] [place] [address], [place] [address] Aug, [facility] [address] [id number] [address] [place] [address], [place] [address] Aug, [facility] [address] [id number] [address] [place] [address], [place] [address] 10 Aug, 2014 [facility] [address] [id number] [address] [place] [address], [place] [address] 10 Aug, 2014 [facility] [address] [id number] [address] [place] [address], [place] [address] Aug, [facility] [address] [id number] [address] [place] [address], [place] [address] Aug, [facility] [address] [id number] [address] [place] [address], [place] [address] 24 Jul, 2014 [facility] [address] [id number] [address] [place] [address], [place] [address] 24 Jul, 2014 [facility] [address] [id number] [address] [place] [address], [place] [address] 16 Jul, 2014 [facility] [address] [id number] [address] [place] [address], [place] [address] 16 Jul, 2014 [facility] [address] [id number] [address] [place] [address], [place] [address] Jul, [facility] [address] [id number] [address] [place] [address], [place] [address] Jul, [facility] [address] [id number] [address] [place] [address], [place] [address] Jun, [facility] [address] [id number] [address] [place] [address], [place] [address] Jun, [facility] [address] [id number] [address] [place] [address], [place] [address] Jun, [facility] [address] [id number] [address] [place] [address], [place] [address] Jun, [facility] [address] [id number] [address] [place] [address], [place] [address] Jun, [facility] [address] [id number] [address] [place] [address], [place] [address] Jun, [facility] [address] [id number] [address] [place] [address], [place] [address] Jun, [facility] [address] [id number] [address] [place] [address], [place] [address] Jun, [facility] [address] [id number] [address] [place] [phone] Jun, [facility] [address] [id number] [address] [place] [address], [place] [address] Jun, [facility] [address] [id number] [address] [place] [address], [place] [address] Jun, [facility] [address] [id number] [address] [place] [address], [place] [address] Jun, [facility] [address] [id number] [place] [id number] Jun, [facility] [address] [id number] [address] [place] [address], [place] [address] Jun, [facility] [address] [id number] [address] [place] [address], [place] [address] Jun, [facility] [address] [id number] [address] [place] [address], [place] [address] Jun, [facility] [address] [id number] [address] [place] [address], [place] [address] May, [facility] [address] [id number] [address] [place] [address], [place] [address] May, [facility] [address] [id number] [address] [place] [address], [place] [address] May, [facility] [address] [id number] [address] [place] [address], [place] [address] May, [facility] [address] [id number] [address] [place] [address], [place] [address] Apr, [facility] [address] [id number] [address] [place] [address], [place] [address] Apr, [facility] [address] [id number] [address] [place] [address], [place] [address] Apr, [facility] [address] [id number] [address] [place] [id number] Apr, [facility] [address] [id number] [address] [place] [phone] Apr, [facility] [address] [id number] [address] [place] [address], [place] [address] Apr, [facility] [address] [id number] [address] [place] [address], [place] [address] Apr, [facility] [address] [id number] [address] [place] [address], [place] [address] Apr, [facility] [address] [id number] [address] [place] [address], [place] [address] Apr, [facility] [address] [id number] [address] [place] [address], [place] [address] Apr, [facility] [address] [id number] [address] [place] [address], [place] [address] Apr, [facility] [address] [id number] [address] [place] [address], [place] [address] Apr, [facility] [address] [id number] [address] [place] [address], [place] [address] Apr, [facility] [address] [id number] [address] [place] [address], [place] [address] Apr, [facility] [address] [id number] [address] [place] [address], [place] [address] Apr, [facility] [address] [id number] [address] [place] [address], [place] [address] Apr, [facility] [address] [id number] [address] [place] [address], [place] [address] Apr, [facility] [address] [id number] [address] [place] [address], [place] [address] Apr, [facility] [address] [id number] [address] [place] [address], [place] [address] Apr, [facility] [address] [id number] [address] [place] [address], [place] [address] Apr, [facility] [address] [id number] [address] [place] [id number] Mar, [facility] [address] [id number] [address] [place] [address], [place] [address] Mar, [facility] [address] [id number] [address] [place] [address], [place] [address] Mar, [facility] [address] [id number] [address] [place] [address], [place] [address] Mar, [facility] [address] [id number] [address] [place] [address], [place] [address] Mar, [facility] [address] [id number] [address] [place] [address], [place] [address] Mar, [facility] [address] [id number] [address] [place] [address], [place] [address] Mar, [facility] [address] [id number] [address] [place] [address], [place] [address] Mar, [facility] [address] [id number] [address] [place] [address], [place] [address] Mar, [facility] [address] [id number] [address] [place] [address], [place] [address] Mar, [facility] [address] [id number] [address] [place] [address], [place] [address] Feb, [facility] [address] [id number] [address] [place] [address], [place] [address] Feb, [facility] [address] [id number] [address] [place] [address], [place] [address] Feb, [facility] [address] [id number] [address] [place] [address], [place] [address] Feb, [facility] [address] [id number] [address] [place] [address], [place] [address] Jan, [facility] [address] [id number] [address] [place] [address], [place] [address] Jan, [facility] [address] [id number] [address] [place] [address], [place] [address] Jan, [facility] [address] [id number] [address] [place] [address], [place] [address] Jan, [facility] [address] [id number] [address] [place] [address], [place] [address] Jan, [facility] [address] [id number] [address] [place] [address], [place] [address] Jan, [facility] [address] [id number] [facility] [place] [address] Dec, [facility] [address] [id number] [address] [place] [address], [place] [address] Dec, [facility] [address] [id number] [address] [place] [address], [place] [address] Nov, [facility] [address] [id number] [address] [place] [address], [place] [address] Nov, [facility] [address] [id number] [address] [place] [address], [place] [address] Nov, [facility] [address] [id number] [address] [place] [address], [place] [address] Nov, [facility] [address] [id number] [address] [place] [address], [place] [address] Nov, [facility] [address] [id number] [address] [place] [address], [place] [address] Nov, [facility] [address] [id number] [address] [place] [address], [place] [address] Sep, [facility] [address] [id number] [address] [place] [address], [place] [address] Sep, [facility] [address] [id number] [address] [place] [address], [place] [address] Sep, [facility] [address] [id number] [address] [place] [address], [place] [address] Sep, [facility] [address] [id number] [address] [place] [address], [place] [address] Aug, [facility] [address] [id number] [address] [place] [address], [place] [address] Aug, [facility] [address] [id number] [address] [place] [address], [place] [address] Jul, [facility] [address] [id number] [address] [place] [address], [place] [address] 14 Jul, 2013 [facility] [address] [id number] [address] [place] [address], [place] [address] Jun, [facility] [address] [id number] [address] [place] [address], [place] [address] Jun, [facility] [address] [id number] [address] [place] [address], [place] [address] Jun, [facility] [address] [id number] [address] [place] [address], [place] [address] Jun, [facility] [address] [id number] [address] [place] [address], [place] [address] May, [facility] [address] [id number] [address] [place] [address], [place] [address] May, [facility] [address] [id number] [address] [place] [address], [place] [address] May, [facility] [address] [id number] [address] [place] [address], [place] [address] May, [facility] [address] [id number] [address] [place] [address], [place] [address] May, [facility] [address] [id number] [address] [place] [address], [place] [address] May, [facility] [address] [id number] [address] [place] [address], [place] [id number] Apr, [facility] [address] [id number] [address] [place] [address], [place] [id number] Apr, [facility] [address] [id number] [address] [place] [address], [place] [id number] Apr, [facility] [address] [id number] [address] [place] [address], [place] [id number] Apr, [facility] [address] [id number] [address] [place] [address], [place] [id number] Mar, [facility] [address] [id number] [address] [place] [address], [place] [id number] Mar, [facility] [address] [id number] [address] [place] [address], [place] [id number] Mar, [facility] [address] [id number] [address] [place] [address], [place] [id number] Mar, [facility] [address] [id number] [address] [place] [address], [place] [id number] Feb, [facility] [address] [id number] [place] [id number] Jan, [facility] [address] [id number] [address] [place] [address], [place] [id number] Jan, [facility] [address] [id number] [address] [place] [address], [place] [id number] Dec, [facility] [address] [id number] [address] [place] [address], [place] [id number] Dec, [facility] [address] [id number] [address] [place] [address], [place] [id number] Dec, [facility] [address] [id number] [place] [id number] Dec, [facility] [address] [id number] [address] [place] [address], [place] [id number] 17 Nov, 2012 [facility] [address] [id number] [address] [place] [address], [place] [id number] 14 Nov, 2012 [facility] [address] [id number] [address] [place] [address], [place] [id number] Nov, [facility] [address] [id number] [address] [place] [address], [place] [id number] Nov, [facility] [address] [id number] [address] [place] [address], [place] [id number] Nov, [facility] [address] [id number] [address] [place] [address], [place] [id number] October, [facility] [address] [facility] [id number] [address] [address] October, [facility] [address] [facility] [id number] [address] [place] [id number] Aug, [facility] [address] [facility] [id number] [address] [address] Nov, IMMUNIZATIONS No Known Immunizations SOCIAL HISTORY [...]
[2019-11-29] MEDS ORDERED: MIDAZOLAM 2 MG/2 ML (VERSED) VIAL ONE (09:39)
--- OUTSIDE RECORDS SUMMARY | 2019-11-29 09:39 | XMS REPORT ---
Author Author Curt DIAZ [facility] Address [address] [place] [address] Care Team Providers Care Licensed Esthetician Name Role Phone CHRIS DIAZ Unavailable PROBLEMS Type Condition ICD9-CM Code PIS22-RM Code Onset Dates Condition S tatus SNOMED Code Problem Edema R60.9 Active 612278932 Problem Morbid obesity E66.01 Active 92845 6002 Problem Metabolic syndrome E88.81 Active 2 67233947 Problem Renal insufficiency N28.9 Active 100963062 Problem Vitamin D deficiency E55.9 Active 55270967 Problem Severe episode of recurrent major depressive disorder, without psychotic features F33.2 Active 12499177 Problem DANIELA (generalized anxiety disorder) F41.1 Active 98610928 Problem Mixed obsessional thoughts and acts F42.2 Active 95934649 Problem Chronic fatigue R53.82 Active 8422 9001 Problem Other chronic pain G89.29 Active 8 8443589 Problem Borderline personality disorder F60.3 Active 32738999 Problem Attachment disorder F94.1 Active Problem Sciatica, right side M54.31 Active 775112125217507 Problem Insomnia G47.00 Active 351923007 Problem Anxiety F41.9 Active 59527034 Problem BMI 45.0-49.9, adult Z68.42 Active 475845653 Problem Hyperlipemia E78.5 Active 7817764 4 Problem Benign essential hypertension I10 Active 7085602 Problem Callous ulcer, limited to breakdown of skin L98.49 1 Active Problem Hammer toe of right foot M20.41 Activ e 153069548 Problem Hammer toe of second toe of right foot M20.41 Active 639210223 Problem Falling episodes R29.6 Active 161 [id number] ALLERGIES No Information ENCOUNTERS Encounter Location Date Diagnosis [facility] [address] [facility] [id number] [address] [address] Dec, [facility] [address] [place] [id number] [address] [place] [phone] 15 Dec, 2019 [facility] [address] [id number][place] [id number] Dec, [facility] [address] [facility] [id number] [address] [place] [address] Dec, [facility] [address] [facility] [id number] [address] [place] [phone] Nov, [facility] [address] [facility] [id number] [address] [place] [phone] October, [facility] [address] [facility] [id number] [address] [place] [address] October, [facility] [address] [id number][place] [id number] October, [facility] [address] [facility] [id number] [address] [address] October, [facility] [address] [id number][place] [id number] Sep, [facility] [address] [facility] [id number] [address] [place] [phone] Sep, [facility] [id number] [place] [address] [id number] Sep, [facility] [address] [facility] [id number] [address] [place] [id number] 28 Sep, 2019 [facility] [address] [facility] [id number] [address] [place] [phone] 24 Sep, 2019 [facility] [address] [facility] [id number] [address] [place] [phone] Sep, [facility] [address] [facility] [id number] [address] [place] [address] Sep, [facility] [address] [facility] [id number] [address] [place] [phone] Sep, DANIELA (generalized anxiety dis order) F41.1 ; Severe episode of recurrent major depressive disorder, without psychotic features F33.2 ; Mixed obsessional thoughts and acts F42.2 and Borderline personality disorder F60.3 [facility] [address] [place] [address] [facility] [id number] [place] [address] Sep, Severe episode of recurrent major depres sive disorder, without psychotic features F33.2 [facility] [address] [id number], [place] [id number] Sep, [facility] [address] [id number][place] [id number] Sep, [facility] [address] [id number][place] [id number] Sep, Benign essential hypertension I10 [facility] [address] [facility] [id number] [address] [place] [address] Sep, [facility] [address] [facility] [id number] [address] [place] [address] Sep, [facility] [address] [facility] [id number] [address] [place] [address] Sep, [facility] [address] [facility] [id number] [address] [place] [address] Sep, DANIELA (generalized anxiety dis order) F41.1 ; Severe episode of recurrent major depressive disorder, without psychotic features F33.2 ; Mixed obsessional thoughts and acts F42.2 and Borderline personality disorder F60.3 [facility] [address] [id number][place] [id number] Aug, [facility] [address] [facility] [id number] [address] [place] [phone] Aug, [facility] [address] [id number][place] [id number] Aug, [facility] [address] [facility] [id number] [address] [place] [address] Aug, [facility] [address] [id number][place] [id number] 17 Aug, 2019 Dizzy R42 ; Weight gain R63.5 ; Benign e ssential hypertension I10 ; Falling episodes R29.6 and History of gastric bypass Z98.84 [facility] [address] [place] [id number] [address] [place] [address] 14 Aug, 2019 [facility] [address] [place] [id number] [address] [place] [id number] 13 Aug, 2019 [facility] [address] [place] [id number] [address] [place] [id number] 11 Aug, 2019 DANIELA (generalized anxiety dis order) F41.1 ; Severe episode of recurrent major depressive disorder, without psychotic features F33.2 ; Mixed obsessional thoughts and acts F42.2 and Borderline personality disorder F60.[id number] [place] [address] [id number] Aug, [place] [id number] [place] [address] [id number] Aug, [place] [address] [place] [id number] [address] [place] [phone] Aug, [id number] [place] [id number] Aug, [id number] [place] [address] [id number] Aug, [facility] [address] [facility] [id number] [address] [place] [phone] Aug, [id number] [place] [address] [id number] Aug, Severe episode of recurrent major depres sive disorder, without psychotic features F33.2 ; Borderline personality disorder F60.3 ; Anxiety F41.9 and Attachment disorder F94.1 [place] [address] [facility] [id number] [address] [place] [phone] Jul, [place] [address] [facility] [id number] [address] [place] [phone] 24 Jul, 2019 DANIELA (generalized anxiety dis order) F41.1 ; Severe episode of recurrent major depressive disorder, without psychotic features F33.2 ; Mixed obsessional thoughts and acts F42.2 and Borderline personality disorder F60.3 [place] [address] [facility] [id number][place] [id number] Jul, [facility] [address] [facility] [id number] [address] [place] [phone] Jul, [facility] [address] [facility] [id number] [address] [place] [phone] 14 Jul, 2019 [facility] [address] [facility] [id number] [address] [place] [phone] 12 Jul, 2019 [facility] [address] [facility] [id number] [address] [place] [phone] Jul, [facility] [address] [facility] [id number] [address] [place] [address] Jun, DANIELA (generalized anxiety dis order) F41.1 ; Severe episode of recurrent major depressive disorder, without psychotic features F33.2 ; Mixed obsessional thoughts and acts F42.2 and Borderline personality disorder F60.[address] [id number], [place] [id number] Jun, [place] [address] [facility] [address] [id number], [place] [id number] Jun, [facility] [address] [facility] [id number] [address] [place] [phone] Jun, [facility] [address] [facility] [id number] [address] [place] [address] Jun, DANIELA (generalized anxiety dis order) F41.1 ; Severe episode of recurrent major depressive disorder, without psychotic features F33.2 ; Mixed obsessional thoughts and acts F42.2 and Borderline personality disorder F60.[address] [id number], [place] [id number] Jun, [facility] [address] [id number], [place] [id number] Jun, [facility] [address] [id number], [place] [id number] Jun, [facility] [address] [id number], [place] [id number] Jun, Benign essential hypertension I10 ; Morb id obesity E66.01 ; Severe episode of recurrent major depressive disorder, without psychotic features F33.2 ; Excess skin L98.7 and Hyperlipemia E78.5 [place] [address] [place] [id number] [address] [place] [phone] Jun, [facility] [address] [place] [id number] [address] [place] [phone] May, [place] [address] [place] [id number] [address] [place] [phone] May, Severe episode of recurrent major depressive disorder, without psychotic features F33.2 ; Mixed obsessional thoughts and acts F42.2 ; DANIELA (generalized anxiety disorder) F41.1 and Borderline personality disorder F60.3 [place] [address] [place] [id number] [address] [place] [address] May, [facility] [address] [place] [id number] [address] [place] [phone] May, DANIELA (generalized anxiety dis order) F41.1 ; Severe episode of recurrent major depressive disorder, without psychotic features F33.2 ; Mixed obsessional thoughts and acts F42.2 and Borderline personality disorder F60.3 [facility] [address] [place] [id number] [address] [place] [phone] May, [facility] [address] [place] [id number] [address] [place] [address] May, [facility] [address] [place] [id number] [address] [place] [phone] May, Severe episode of recurrent major depressive disorder, without psychotic features F33.2 ; Mixed obsessional thoughts and acts F42.2 ; Borderline personality disorder F60.3 and DANIELA (generalized anxiety disorder) F41.1 [facility] [address] [id number] [address] [place] [address] [id number] 04 May, 2019 Caries K02.9 [facility] [address] [id number][place] [id number] May, Benign essential hypertension I10 [facility] [address] [id number], [place] [id number] Apr, [facility] [address] [id number], [place] [id number] Apr, Benign essential hypertension I10 [facility] [address] [place] [id number] [address] [place] [phone] Apr, Borderline personality disor romero F60.3 ; DANIELA (generalized anxiety disorder) F41.1 ; Mixed obsessional thoughts and acts F42.2 and Severe episode of recurrent major depressive disorder, without psychotic features F33.2 [facility] [address] [id number], [place] [id number] Apr, [facility] [address] [id number], [place] [id number] Apr, Benign essential hypertension I10 [facility] [address] [place] [id number] [address] [place] [phone] Apr, Severe episode of recurrent major depressive disorder, without psychotic features F33.2 ; DANIELA (generalized anxiety disorder) F41.1 ; Borderline personality disorder F60.3 and Mixed obsessional thoughts and acts F42.2 [facility] [address] [id number] [address] [place] [address] [id number] Apr, Dental examination Z01.20 [facility] [address] [id number] [address] [place] [address] [id number] Apr, Caries K02.9 and Dental exam ination Z01.20 [facility] [address] [facility] [id number] [address] [place] [phone] Apr, DANIELA (generalized anxiety dis order) F41.1 ; Severe episode of recurrent major depressive disorder, without psychotic features F33.2 ; Mixed obsessional thoughts and acts F42.2 and Borderline personality disorder F60.3 [facility] [address] [facility] [id number] [address] [place] [phone] Mar, Severe episode of recurrent major depressive disorder, without psychotic features F33.2 ; Mixed obsessional thoughts and acts F42.2 ; Borderline personality disorder F60.3 and DANIELA (generalized anxiety disorder) F41.1 [place] [address] [place] [id number] [address] [place] [phone] Mar, Severe episode of recurrent major depressive disorder, without psychotic features F33.2 ; Mixed obsessional thoughts and acts F42.2 ; DANIELA (generalized anxiety disorder) F41.1 and Borderline personality disorder F60.3 [facility] [address] [place] [id number] [place] [address] [id number] Mar, Dental examination Z01.20 an d Caries K02.9 [facility] [id number] [place] [address] [id number] Mar, Benign essential hypertension I10 and Fa lling episodes R29.6 [facility] [address] [facility] [id number] [address] [place] [phone] Mar, [place] [address] [facility] [id number] [address] [place] [phone] Mar, Severe episode of recurrent major depressive disorder, without psychotic features F33.2 ; Mixed obsessional thoughts and acts F42.2 ; Borderline personality disorder F60.3 and DANIELA (generalized anxiety disorder) F41.1 [facility] [address] [facility] [id number] [address] [place] [phone] Mar, [facility] [address] [facility] [id number] [address] [place] [address] Mar, [facility] [address] [id number] [place] [id number] Mar, [facility] [address] [facility] [id number] [address] [place] [address] Mar, Severe episode of recurrent major depressive disorder, without psychotic features F33.2 ; Mixed obsessional thoughts and acts F42.2 ; Borderline personality disorder F60.3 and DANIELA (generalized anxiety disorder) F41.1 [facility] [address] [facility] [id number] [address] [place] [phone] Mar, [facility] [address] [id number] [address] [place] [address] [id number] Feb, Dental examination Z01.20 an d Periodontitis K05.30 [facility] [address] [place] [id number] [address] [place] [phone] Feb, DANIELA (generalized anxiety dis order) F41.1 ; Severe episode of recurrent major depressive disorder, without psychotic features F33.2 ; Mixed obsessional thoughts and acts F42.2 and Borderline personality disorder F60.[address] [facility] [address] [id number], [place] [id number] Feb, Acute pain of right knee M25.561 ; Fall, initial encounter W19.XXXA ; Benign essential hypertension I10 and Edema R60.9 [facility] [address] [facility] [id number] [address] [place] [phone] Feb, [facility] [address] [facility] [id number] [address] [place] [phone] Feb, DANIELA (generalized anxiety dis order) F41.1 ; Severe episode of recurrent major depressive disorder, without psychotic features F33.2 ; Mixed obsessional thoughts and acts F42.2 and Borderline personality disorder F60.3 [facility] [address] [facility] [id number] [address] [place] [phone] Feb, [facility] [address] [facility] [id number] [address] [place] [phone] Jan, [facility] [address] [place] [id number] [address] [place] [address] Jan, [facility] [address] [place] [id number] [address] [place] [phone] Jan, [facility] [address] [facility] [id number] [place] [address] [id number] Jan, Callus of heel L84 ; Fissure in skin R23 .4 and Hammer toe of second toe of right foot M20.41 [facility] [address] [place] [address] [id number] [place] [address] [id number] Jan, [facility] [address] [address] Jan, [facility] [address] [address] Jan, [facility] [address] [address] Jan, Severe episode of recurrent major depressive disorder, without psychotic features F33.2 ; DANIELA (generalized anxiety disorder) F41.1 ; Mixed obsessional thoughts and acts F42.2 and Borderline personality disorder F60.3 [facility] [address] [place] [address] Jan, [facility] [address] [place] [id number] [place] [address] [id number] Jan, Benign essential hypertension I10 [facility] [address] [place] [address] [id number] [place] [address] [id number] Dec, Callous ulcer, limited to breakdown of s kin L98.491 and Morbid obesity E66.01 [facility] [address] [facility] [id number] [address] [place] [phone] Dec, [facility] [address] [place] [id number] [address] [place] [phone] Dec, [facility] [address] [place] [id number] [address] [place] [phone] Dec, [facility] [address] [id number] [address] [place] [phone] Dec, [facility] [address] [facility] [id number] [address] [place] [phone] Dec, Severe episode of recurrent major depressive disorder, without psychotic features F33.2 [facility] [address] [facility] [id number] [address] [place] [address] Dec, DANIELA (generalized anxiety dis order) F41.1 ; Severe episode of recurrent major depressive disorder, without psychotic features F33.2 ; Mixed obsessional thoughts and acts F42.2 and Dependent personality disorder F60.[address] [facility] [address] [id number], [place] [id number] Dec, Morbid obesity E66.01 [facility] [address] [facility] [id number] [address] [place] [phone] Dec, [facility] [address] [facility] [id number] [address] [place] [phone] Dec, [facility] [address] [id number] [address] Nov, [facility] [address] [id number][place] [id number] Nov, [facility] [address] [facility] [id number] [address] [place] [phone] Nov, [facility] [address] [facility] [id number] [address] [place] [id number] Nov, [facility] [address] [facility] [id number] [address] [place] [phone] Nov, DANIELA (generalized anxiety dis order) F41.1 ; Severe episode of recurrent major depressive disorder, without psychotic features F33.2 ; Mixed obsessional thoughts and acts F42.2 and Dependent personality disorder F60.7 [facility] [address] [address] [id number], [place] [id number] Nov, Morbid obesity E66.01 [facility] [address] [facility] [id number] [address] [place] [address] Nov, [facility] [address] [facility] [id number] [address] [place] [address] Nov, DANIELA (generalized anxiety dis order) F41.1 ; Mixed obsessional thoughts and acts F42.2 ; Severe episode of recurrent major depressive disorder, without psychotic features F33.2 and Dependent personality disorder F60.7 [facility] [address] [id number], [place] [id number] October, Morbid obesity E66.01 [facility] [address] [id number], [place] [id number] October, Benign essential hypertension I10 and Mo rbid obesity E66.01 [facility] [address] [id number], [place] [id number] October, [facility] [address] [facility] [id number] [address] [place] [id number] October, Severe episode of recurrent major depressive disorder, without psychotic features F33.2 [facility] [address] [id number] [id number] October, Morbid obesity E66.01 [facility] [address] [id number] [id number] October, [facility] [address] [facility] [id number] [address] [place] [id number] October, Severe episode of recurrent major depressive disorder, without psychotic features F33.2 ; DANIELA (generalized anxiety disorder) F41.1 ; Mixed obsessional thoughts and acts F42.2 and Dependent personality disorder F60.[address] [facility] [address] [id number], [place] [id number] October, Morbid obesity E66.01 [facility] [address] [id number] [address] [place] [address] [id number] Sep, Dental examination Z01.20 [facility] [address] [id number], [place] [id number] Sep, [facility] [address] [facility] [id number] [address] [place] [phone] Sep, Sore in mouth K13.79 and Mor bid obesity E66.01 [facility] [address] [facility] [id number] [address] [place] [address] Sep, Dental examination Z01.20 [facility] [address] [facility] [id number] [address] [place] [address] Sep, Anxiety disorder, unspecifie d F41.[address] [id number] [place] [address] [id number] Sep, Mouth ulcer K12.[address] [id number] [place] [address] [id number] Sep, Morbid obesity E66.[address] [id number] [place] [address] [id number] Sep, Allergic rhinitis, unspecified seasonali ty, unspecified trigger J30.9 and Shortness of breath R06.[address] [id number] [place] [address] [id number] Sep, 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 [id number] [place] [address] [id number] Aug, Mouth abscess K12.2 ; Mouth ulcer K12.1 ; Bloating R14.0 and Morbid obesity E66.01 [facility] [id number], [place] [id number] Aug, [facility] [id number] [place] [address] [id number] Aug, [facility] [id number], [place] [id number] Jul, Major depressive disorder, recurrent, mo derate F33.1 ; Abscess of arm, left L02.414 ; BMI 45.0-49.9, adult Z68.42 and Morbid obesity E66.01 [facility] [address] [id number], [place] [id number] Jul, [facility] [address] [id number], [place] [id number] Jul, [facility] [address] [id number], [place] [id number] Jun, Pain in right knee M25.561 and Other chr onic pain G89.29 [facility] [address] [id number], [place] [id number] Jun, Benign essential hypertension I10 ; BMI 45.0-49.9, adult Z68.42 ; Morbid obesity E66.01 ; Vitamin D deficiency E55.9 ; Insomnia G47.00 ; Dependent personality disorder F60.7 ; Edema R60.9 ; Recurrent major depressive disorder, in partial remission F33.41 ; Chronic fatigue R53.82 ; Acute pain of right knee M25.561 ; Metabolic syndrome E88.81 and Irritable mood R45.4 [place] [address] [place] [id number] [address] [place] [phone] Jun, [facility] [address] [id number], [place] [id number] Jun, Irritable mood R45.4 [facility] [address] [facility] [id number] [address] [place] [phone] May, [facility] [address] [facility] [id number] [address] [place] [phone] May, [facility] [address] [facility] [id number] [address] [place] [phone] May, Recurrent major depressive d isorder, in partial remission F33.41 ; Mixed obsessional thoughts and acts F42.2 ; Dependent personality disorder F60.7 and BMI 45.0-49.9, adult Z68.42 [facility] [address] [facility] [id number] [address] [place] [phone] Apr, [facility] [address] [facility] [id number] [address] [place] [phone] Apr, [facility] [address] [facility] [id number] [address] [place] [phone] Apr, [facility] [address] [facility] [id number] [address] [place] [phone] Apr, [facility] [address] [place] [id number] [address] [place] [phone] Mar, Mixed obsessional thoughts a nd acts F42.2 ; Recurrent major depressive disorder, in partial remission F33.41 ; DANIELA (generalized anxiety disorder) F41.1 and BMI 45.0-49.9, adult Z68.[address] [place] [address] [id number] [place] [address] [id number] Mar, [address] [id number] [place] [address] [id number] Mar, BMI 45.0-49.9, adult Z68.42 ; Instabilit y of right knee joint M25.361 and Rash R21 [place] [address] [place] [id number] [address] [place] [phone] Jan, Recurrent major depressive d isorder, in partial remission F33.41 ; Mixed obsessional thoughts and acts F42.2 and BMI 45.0-49.9, adult Z68.[address] [place] [place] [id number] [place] [address] [id number] Jan, [place] [id number] [place] [address] [id number] Jan, Benign essential hypertension I10 ; BMI 45.0-49.9, adult Z68.42 ; Metabolic syndrome E88.81 and Allergic rhinitis, unspecified seasonality, unspecified trigger J30.9 [facility] [address] [facility] [id number] [address] [place] [phone] Dec, DANIELA (generalized anxiety dis order) F41.1 and Depressive disorder, not elsewhere classified F32.[address] [id number] [place] [id number] Dec, Recurrent major depressive disorder, in partial remission F33.[address] [id number] [place] [id number] Dec, [facility] [address] [id number] [place] [id number] Nov, [facility] [address] [id number] [place] [id number] Nov, Recurrent major depressive disorder, in partial remission F33.41 [facility] [address] [place] [id number] [address] [place] [phone] Nov, Recurrent major depressive d isorder, in partial remission F33.41 ; Mixed obsessional thoughts and acts F42.2 ; DANIELA (generalized anxiety disorder) F41.1 and BMI 45.0-49.9, adult Z68.42 [facility] [address] [id number] [place] [id number] Nov, [facility] [address] [id number] [place] [id number] Nov, Other conjunctivitis of both eyes H10.89 and Sciatica, right side M54.31 [facility] [address] [id number], [place] [id number] Nov, [facility] [address] [id number] [place] [id number] Nov, [facility] [address] [id number], [place] [id number] October, [facility] [address] [id number] [place] [id number] October, [facility] [address] [facility] [id number] [address] [place] [phone] October, BMI 45.0-49.9, adult Z68.42 ; Mixed obsessional thoughts and acts F42.2 ; Recurrent major depressive disorder, in partial remission F33.41 and DANIELA (generalized anxiety disorder) F41.1 [facility] [id number], [place] [id number] October, Benign essential hypertension I10 ; Morb id obesity E66.01 and BMI 45.0-49.9, adult Z68.42 [facility] [id number] [place] [address] [id number] Sep, [facility] [id number] [place] [address] [id number] Sep, [facility] [id number] [place] [address] [id number] Sep, [facility] [id number] [place] [address] [id number] Sep, Hospital discharge follow-up Z09 ; Aller gic rhinitis, unspecified seasonality, unspecified trigger J30.9 and Shortness of breath R06.02 [facility] [employer] [place] [address] AVE [id number], [place] [id number] Sep, Recurrent major depressive disorder, in partial remission F33.41 [facility] [id number] [place] [address] [id number] Aug, Irritable mood R45.4 [place] [address] [place] [id number] [address] [place] [phone] Aug, [facility] [id number] [place] [address] [id number] Jul, Benign essential hypertension I10 ; Robert a R60.9 and Impacted cerumen of left ear H61.22 [place] [address] [phone] Jul, Major depression F32.9 ; Rec urrent major depressive disorder, in partial remission F33.41 and Anxiety F41.9 [place] [address] [phone] Jun, Major depression F32.9 ; Rec urrent major depressive disorder, in partial remission F33.41 and Anxiety F41.9 [facility] [address] [id number], [place] [id number] Jun, Major depression F32.9 ; Morbid obesity E66.01 ; Irritable mood R45.4 ; Hand weakness R29.898 and Vitamin D deficiency E55.9 [facility] [address] [id number], [place] [id number] Jun, [facility] [address] [id number], [place] [id number] May, Major depression F32.9 [place] [address] [facility] [id number] [address] [place] [phone] May, Major depression F32.[address] [place] [address] [id number] [place] [address] [id number] May, BMI 50.0-59.9, adult Z68.43 ; Major depr ession F32.9 ; Anxiety F41.9 ; Hypertrophic toenail L60.2 and Pain of left great toe M79.[address] [place] [id number] [place] [address] [id number] May, Recurrent major depressive disorder, in partial remission F33.41 [place] [address] [facility] [id number] [address] [place] [phone] Apr, [facility] [id number] [place] [address] [id number] Apr, [facility] [address] [facility] [id number] [address] [place] [phone] Apr, Major depression F32.9 [facility] [id number] [place] [address] [id number] Apr, Severe episode of recurrent major depres sive disorder, without psychotic features F33.2 ; Anxiety F41.9 and Insomnia G47.[address] [facility] [address] [id number], [place] [id number] Apr, [facility] [address] [facility] [id number] [address] [place] [phone] Apr, [facility] [address] [id number], [place] [id number] Apr, [facility] [address] [id number], [place] [id number] Mar, [facility] [address] [id number], [place] [id number] Mar, Allergic conjunctivitis of both eyes H10 .13 [facility] [address] [facility] [id number] [address] [place] [phone] Mar, Major depression F32.9 [facility] [address] [id number], [place] [id number] Mar, Metabolic syndrome E88.81 ; History of g astric bypass Z98.890 ; Benign essential hypertension I10 ; Allergic conjunctivitis of both eyes H10.13 and Morbid obesity E66.01 [facility] [address] [facility] [id number] [address] [place] [phone] Mar, Major depression F32.9 [facility] [address] [id number], [place] [id number] Feb, [facility] [address] [facility] [id number] [address] [place] [phone] Feb, Major depression F32.9 [facility] [address] [id number], [place] [id number] Feb, Subacute maxillary sinusitis J01.00 and Bronchitis J40 [facility] [address] [facility] [id number] [address] [place] [phone] 06 Feb, 2017 Major depressive disorder, r ecurrent, moderate F33.1 [facility] [address] [id number], [place] [id number] Jan, [facility] [address] [address] [id number], [place] [id number] Jan, Acute non-recurrent maxillary sinusitis J01.00 and Skin tag L91.8 [facility] [address] [id number], [place] [id number] Jan, Cough R05 and Sinus congestion R09.81 [facility] [place] [address] [place] [address] AVE [id number], [place] [id number] Jan, [facility] [address] [id number], [place] [id number] Jan, Benign essential hypertension I10 ; Hist ory of gastric bypass Z98.890 and Nausea and vomiting in adult R11.2 [place] [address] [place] [id number] [address] [place] [phone] 04 Jan, 2017 Major depressive disorder, r ecurrent, moderate F33.1 [place] [address] [place] [id number] [address] [place] [phone] 12 Dec, 2016 Insomnia G47.00 ; Recurrent major depressive disorder, in partial remission F33.41 and Morbid obesity E66.01 [facility] [address] [place] [address] AVE [id number], [place] [id number] Dec, [facility] [id number], [place] [id number] Dec, Chronic bacterial conjunctivitis of left eye H10.402 [facility] [address] [place] [address] AVE [id number], [place] [id number] Nov, [facility] [id number] [place] [address] [id number] Nov, Dental examination Z01.20 [facility] [id number] [place] [address] [id number] Nov, Benign essential hypertension I10 ; Hist ory of gastric bypass Z98.890 and Nausea and vomiting in adult R11.2 [place] [address] [place] [id number] [address] [place] [address] Nov, Major depressive disorder, r ecurrent, moderate F33.1 ; Generalized anxiety disorder F41.1 and Insomnia due to other mental disorder F51.05 [place] [address] [facility] [id number] [address] [place] [phone] Nov, Recurrent major depressive d isorder, in partial remission F33.41 ; Insomnia G47.00 and Morbid obesity E66.01 [facility] [address] [id number] [place] [id number] October, Abscess of left arm L02.414 [place] [address] [facility] [id number] [address] [place] [phone] October, Morbid obesity E66.01 ; Lida r depression F32.9 and Recurrent major depressive disorder, in partial remission F33.41 [facility] [address] [id number], [place] [id number] Sep, Benign essential hypertension I10 ; Morb id obesity E66.01 ; S/P gastric bypass Z98.84 ; Abscess L02.91 and Chronic bacterial conjunctivitis of left eye H10.402 [facility] [id number] [place] [address] [id number] Sep, Dental examination Z01.20 [place] [address] [facility] [id number] [address] [place] [phone] Sep, Morbid obesity E66.01 ; Lida r depression F32.9 and Recurrent major depressive disorder, in partial remission F33.41 [place] [address] [facility] [id number] [address] [place] [phone] Jul, [place] [address] [facility] [id number] [address] [place] [phone] Jul, Major depressive disorder, r ecurrent, moderate F33.1 [place] [address] [facility] [id number] [address] [place] [phone] Jul, Major depressive disorder, r ecurrent, moderate F33.1 and Generalized anxiety disorder F41.1 [facility] [address] [id number], [place] [id number] Jul, Cough R05 [facility] [address] [facility] [id number] [address] [place] [address] Jul, Morbid obesity E66.01 ; Lida r depression F32.9 and Recurrent major depressive disorder, in partial remission F33.[address] [facility] [address] [address] [id number], [place] [id number] Jul, [facility] [address] [id number], [place] [id number] Jul, [facility] [place] [id number] [place] [address] [id number] Jul, Gastroenteritis K52.9 and Cough R05 [address] [id number] [place] [address] [id number] Jun, Acute bacterial conjunctivitis of left e ye H10.32 [facility] [address] [facility] [id number] [address] [place] [phone] Jun, [place] [address] [address] Jun, Recurrent major depressive d isorder, in partial remission F33.41 [facility] [address] [place] [id number] [address] [place] [phone] May, Major depression F32.9 and M orbid obesity E66.01 [facility] [address] [facility] [id number] [address] [place] [phone] May, [facility] [address] [facility] [id number] [place] [address] [id number] May, Thrush B37.0 [facility] [address] [place] [id number] [address] [place] [phone] Apr, Major depressive disorder, r ecurrent, moderate F33.1 [place] [address] [place] [id number] [address] [place] [address] Apr, Insomnia G47.00 ; Major depr ession F32.9 and Recurrent major depressive disorder, in partial remission F33.41 [facility] [address] [facility] [id number] [address] [place] [address] Apr, [facility] [address] [facility] [id number] [address] [place] [address] Apr, Major depression F32.9 and R ecurrent major depressive disorder, in partial remission F33.41 [facility] [address] [id number], [place] [id number] Mar, Benign essential hypertension I10 ; Morb id obesity E66.01 ; Impacted cerumen of both ears H61.23 ; Laceration of finger of right hand, initial encounter S61.219A and Encounter for immunization Z23 [facility] [address] [facility] [id number] [address] [place] [phone] 17 Mar, 2016 [facility] [address] [facility] [id number] [address] [place] [phone] Mar, [place] [address] [facility] [id number] [address] [place] [address] Mar, [place] [address] [id number], [place] [id number] Feb, Nausea R11.0 ; Blood in the stool K92.1 and Benign essential hypertension I10 [place] [address] [facility] [id number] [address] [place] [address] Feb, Major depression F32.9 and R ecurrent major depressive disorder, in partial remission F33.[address] [facility] [address] [address] [id number], [place] [id number] Feb, [facility] [address] [id number], [place] [id number] Feb, Recurrent major depressive disorder, in partial remission F33.41 [facility] [address] [id number], [place] [id number] Jan, [facility] [address] [id number], [place] [id number] Jan, Benign essential hypertension I10 ; Robert a R60.9 and Hyperlipidemia, unspecified hyperlipidemia type E78.5 [facility] [address] [id number], [place] [id number] Jan, Recurrent major depressive disorder, in partial remission F33.41 [facility] [address] [id number] [place] [id number] Jan, [facility] [address] [id number], [place] [id number] Jan, [facility] [address] [id number], [place] [id number] Jan, [facility] [address] [facility] [id number] [address] [place] [phone] Jan, [facility] [address] [facility] [id number] [address] [place] [phone] Dec, [facility] [address] [facility] [id number] [address] [place] [phone] Nov, [facility] [address] [facility] [id number] [address] [place] [address] Nov, Major depression F32.9 [facility] [address] [facility] [id number] [address] [place] [phone] Nov, [facility] [address] [facility] [id number] [address] [place] [phone] Nov, [facility] [address] [facility] [id number] [address] [place] [phone] Nov, Major depressive disorder, r ecurrent episode, mild F33.0 and Anxiety F41.9 [facility] [address] [id number] [id number] Nov, [facility] [address] [id number] [id number] October, Left elbow pain M25.522 and Other season al allergic rhinitis J30.2 [facility] [address] [id number] [id number] October, [facility] [address] [facility] [id number] [address] [place] [id number] October, Major depressive disorder, r ecurrent, moderate F33.1 [facility] [address] [facility] [id number] [address] [place] [id number] October, Major depression F32.9 [facility] [address] [facility] [id number] [address] [place] [phone] Sep, Elmo or callus L84 and Onych omycosis B35.1 [facility] [address] [facility] [id number] [address] [place] [phone] Sep, Major depressive disorder, r ecurrent, moderate F33.1 [facility] [address] [facility] [id number] [address] [place] [phone] Sep, Major depression F32.9 [facility] [address] [facility] [id number] [address] [place] [phone] Sep, Moderate episode of recurren t major depressive disorder F33.1 [facility] [address] [place] [address] AVE [id number] [id number] Sep, Muscle strain T14.8 [facility] [address] [facility] [id number] [address] [place] [phone] Aug, Major depression F32.9 [facility] [address] [facility] [id number] [address] [place] [address] Aug, Major depression F32.9 [facility] [address] [facility] [id number] [address] [place] [address] Jul, Morbid obesity E66.01 and Ma cora depression F32.9 [facility] [address] [facility] [id number] [address] [place] [address] Jul, Depression, major, recurrent , moderate F33.[address] [id number] [id number] Jul, [facility] [address] [facility] [id number] [address] [place] [address] Jul, [facility] [address] [facility] [id number] [address] [place] [address] Jul, Major depression F32.9 and M orbid obesity E66.[address] [id number] [place] [address] [id number] Jul, Type II diabetes mellitus E11.9 ; Callus of foot L84 ; Benign essential hypertension I10 and Renal insufficiency N28.9 [facility] [address] [place] [id number] [address] [place] [address] 09 Jul, 2015 Depression, major, recurrent , moderate F33.1 [place] [address] [place] [id number] [address] [place] [address] 05 Jul, 2015 Major depression F32.9 [facility] [address] [place] [id number] [address] [place] [address] Jul, [facility] [address] [place] [id number] [address] [place] [address] Jun, Major depression F32.9 [facility] [address] [place] [id number] [address] [place] [address] Jun, Major depressive disorder, r ecurrent, moderate F33.1 [facility] [address] [facility] [id number] [address] [place] [address] Jun, [place] [address] [place] [id number] [address] [place] [address] Jun, Major depressive disorder, r ecurrent, moderate F33.1 and Major depression F32.[address] [id number] [id number] Jun, Type II diabetes mellitus E11.9 [facility] [address] [facility] [id number] [address] [place] [address] Jun, Depression, major, recurrent , moderate F33.1 [place] [address] [facility] [id number] [address] [place] [address] May, Major depressive disorder, r ecurrent, moderate F33.1 [place] [address] [facility] [id number] [address] [place] [address] May, [place] [id number] [place] [address] [id number] May, Edema R60.9 [place] [address] [facility] [id number] [address] [place] [address] May, Insomnia G47.00 and Major de pression F32.[address] [place] [place] [id number] [place] [address] [id number] May, Morbid obesity E66.01 ; Edema R60.9 ; Sh ortness of breath R06.02 ; Benign essential hypertension I10 and Renal insufficiency N28.[address] [place] [place] [id number] [place] [address] [id number] May, Hyperlipemia 272.4 and Renal insufficien cy N28.9 [place] [address] [facility] [id number] [address] [place] [address] Apr, Major depression F32.9 [place] [address] [facility] [id number] [address] [place] [address] Apr, [place] [address] [facility] [id number] [address] [place] [address] Apr, Major depressive disorder, r ecurrent, moderate F33.[address] [place] [place] [address] [id number] [id number] Apr, Type II diabetes mellitus E11.9 ; Benign essential hypertension I10 ; Edema R60.9 and Renal insufficiency N28.9 [place] [address] [facility] [id number] [address] [place] [address] Mar, Major depressive disorder, r ecurrent, moderate F33.1 [place] [address] [facility] [id number] [address] [place] [address] Mar, [facility] [address] [facility] [id number] [address] [place] [address] Mar, Major depression F32.9 [facility] [id number] [place] [address] [id number] Mar, Morbid obesity E66.01 ; Benign essential hypertension I10 and Type II diabetes mellitus E11.9 [place] [address] [facility] [id number] [address] [place] [address] Feb, Major depressive disorder, r ecurrent, moderate F33.1 [place] [address] [place] [id number] [address] [place] [address] Feb, Major depressive disorder, r ecurrent episode, in partial or unspecified remission 296.35 ; Anxiety state, unspecified 300.00 and Morbid obesity 278.01 [place] [id number] [place] [address] Feb, [facility] [id number] [place] [address] [id number] 16 Feb, 2015 Vomiting 787.03 and Viral syndrome 079.9 9 [place] [address] [place] [id number] [address] [place] [address] 15 Feb, 2015 Major depression, recurrent 296.30 ; Generalized anxiety disorder 300.02 and No condition on Delmar II V71.09 [facility] [id number] [place] [address] [id number] 03 Feb, 2015 Skin tag 701.9 [place] [address] [facility] [id number] [address] [place] [address] Feb, [place] [address] [place] [id number] [address] [place] [address] Jan, Depression, major, recurrent , moderate 296.[address] [id number] [id number] Jan, Nausea and vomiting 787.01 ; Rib pain on right side 786.50 and Fall on or from sidewalk curb E880.1 [facility] [address] [facility] [id number] [address] [place] [address] Jan, [facility] [address] [place] [id number] [address] [place] [address] Jan, Major depressive disorder, r ecurrent episode, in partial or unspecified remission 296.35 and Anxiety state, unspecified 300.00 [facility] [address] [place] [address] [id number] [id number] Jan, [facility] [address] [facility] [id number] [address] [place] [address] Jan, Depression, major, recurrent , moderate 296.32 [facility] [address] [facility] [id number] [address] [place] [address] Jan, Major depression, recurrent 296.30 ; No condition on Delmar II V71.09 and No condition on axis III V71.[address] [id number] [id number] Jan, Drug-induced nausea and vomiting 787.01 [facility] [address] [facility] [id number] [address] [place] [address] Jan, Depression, major, recurrent , moderate 296.32 [facility] [address] [facility] [id number] [address] [place] [address] Dec, Depression, major, recurrent , moderate 296.[address] [id number][place] [id number] Dec, Morbid obesity 278.01 ; Metabolic syndro me 277.7 ; Hyperlipemia 272.4 ; Benign essential hypertension 401.1 ; Dietary counseling V65.3 ; Exercise counseling V65.41 and Inflamed skin tag 701.9 [facility] [address] [address] Dec, Depression, major, recurrent , moderate 296.32 [place] [address] [address] Dec, [place] [address] [address] Dec, Major depression, recurrent 296.30 ; Anxiety, generalized 300.02 and No condition on Delmar II V71.09 [place] [address] [address] Dec, Depression, major, recurrent , moderate 296.32 [place] [address] [address] Dec, Major depressive disorder, r ecurrent episode, moderate 296.[address] [address] Dec, Depression, major, recurrent , moderate 296.32 [place] [address] [address] Dec, Depression, major, recurrent , moderate 296.32 [place] [address] [address] Dec, Depression, major, recurrent , moderate 296.32 [place] [address] [address] Dec, Depression, major, recurrent , moderate 296.32 [place] [address] [address] Nov, Depression, major, recurrent , moderate 296.32 [place] [address] [address] Nov, Major depression 296.20 ; So cial phobia 300.23 and No condition on Delmar II V71.09 [place] [address] [place] [id number] [address] [place] [address] 16 Nov, 2014 Depression, major, recurrent , moderate 296.32 [facility] [address] [facility] [id number] [address] [place] [address] 09 Nov, 2014 Major depressive disorder, r ecurrent episode, moderate 296.32 and Generalized anxiety disorder 300.02 [facility] [address] [facility] [id number] [address] [place] [address] Nov, Depression, major, recurrent , moderate 296.32 [facility] [address] [facility] [id number] [address] [place] [address] Nov, Depression, major, recurrent , moderate 296.32 [facility] [address] [place] [id number] [address] [place] [address] October, Generalized anxiety disorder 300.02 ; No condition on Delmar II V71.09 and Major depressive disorder, recurrent 296.30 [facility] [address] [facility] [id number] [address] [place] [address] 14 Sep, 2014 [facility] [address] [facility] [id number] [address] [place] [address] Sep, [facility] [address] [place] [id number] [address] [place] [address] Aug, [facility] [address] [place] [id number] [address] [place] [address] Aug, [facility] [address] [facility] [id number] [address] [place] [address] Aug, [facility] [address] [facility] [id number] [address] [place] [address] Aug, [facility] [address] [facility] [id number] [address] [place] [address] Aug, [facility] [address] [facility] [id number] [address] [place] [address] Aug, [facility] [address] [facility] [id number] [address] [place] [address] 20 Aug, 2014 [facility] [address] [id number] [address] [place] [address], [place] [address] 20 Aug, 2014 [facility] [address] [id number] [address] [place] [address], [place] [address] 13 Aug, 2014 [facility] [address] [id number] [address] [place] [address], [place] [address] 13 Aug, 2014 [facility] [address] [id number] [address] [place] [address], [place] [address] 13 Aug, 2014 [facility] [address] [id number] [address] [place] [address], [place] [address] Aug, [facility] [address] [id number] [address] [place] [address], [place] [address] Aug, [facility] [address] [id number] [address] [place] [address], [place] [address] Aug, [facility] [address] [id number] [address] [place] [address], [place] [address] 10 Aug, 2014 [facility] [address] [id number] [address] [place] [address], [place] [address] 10 Aug, 2014 [facility] [address] [id number] [address] [place] [address], [place] [address] Aug, [facility] [address] [id number] [address] [place] [address], [place] [address] Aug, [facility] [address] [id number] [address] [place] [address], [place] [address] 24 Jul, 2014 [facility] [address] [id number] [address] [place] [address], [place] [address] Jul, [facility] [address] [id number] [address] [place] [address], [place] [address] 16 Jul, 2014 [facility] [address] [id number] [address] [place] [address], [place] [address] 16 Jul2014 [facility] [address] [id number] [address] [place] [address], [place] [address] Jul, [facility] [address] [id number] [address] [place] [address], [place] [address] Jul, [facility] [address] [id number] [address] [place] [address], [place] [address] Jun, [facility] [address] [id number] [address] [place] [address], [place] [address] Jun, [facility] [address] [id number] [address] [place] [address], [place] [address] Jun, [facility] [address] [id number] [address] [place] [address], [place] [address] Jun, [facility] [address] [id number] [address] [place] [address], [place] [address] Jun, [facility] [address] [id number] [address] [place] [address], [place] [address] Jun, [facility] [address] [id number] [address] [place] [address], [place] [address] Jun, [facility] [address] [id number] [address] [place] [address], [place] [address] Jun, [facility] [address] [id number] [address] [place] [address], [place] [address] Jun, [facility] [address] [id number] [address] [place] [address], [place] [address] Jun, [facility] [address] [id number] [address] [place] [address], [place] [address] Jun, [facility] [address] [id number] [address] [place] [address], [place] [address] Jun, [facility] [address] [id number] [place] [id number] Jun, [facility] [address] [id number] [address] [place] [address] [address] Jun, [facility] [address] [id number] [address] [place] [address], [place] [address] Jun, [facility] [address] [id number] [address] [place] [address], [place] [address] Jun, [facility] [address] [id number] [address] [place] [address], [place] [address] May, [facility] [address] [id number] [address] [place] [address], [place] [address] May, [facility] [address] [id number] [address] [place] [address], [place] [address] May, [facility] [address] [id number] [address] [place] [address], [place] [address] May, [facility] [address] [id number] [address] [place] [address], [place] [address] Apr, [facility] [address] [id number] [address] [place] [address], [place] [address] Apr, [facility] [address] [id number] [address] [place] [address], [place] [address] Apr, [facility] [address] [id number] [address] [place] [address], [place] [address] Apr, [facility] [address] [id number] [address] [place] [address] Apr, [facility] [address] [id number] [address] [place] [address] Apr, [facility] [address] [id number] [address] [place] [address], [place] [address] Apr, [facility] [address] [id number] [address] [place] [address], [place] [address] Apr, [facility] [address] [id number] [address] [place] [address], [place] [address] Apr, [facility] [address] [id number] [address] [place] [address], [place] [address] Apr, [facility] [address] [id number] [address] [place] [address], [place] [address] Apr, [facility] [address] [id number] [address] [place] [address], [place] [address] Apr, [facility] [address] [id number] [address] [place] [address], [place] [address] Apr, [facility] [address] [id number] [address] [place] [address], [place] [address] Apr, [facility] [address] [id number] [address] [place] [address], [place] [address] Apr, [facility] [address] [id number] [address] [place] [address], [place] [address] Apr, [facility] [address] [id number] [address] [place] [address], [place] [address] Apr, [facility] [address] [id number] [address] [place] [address], [place] [address] Apr, [facility] [address] [id number] [address] [place] [address], [place] [address] Apr, [facility] [address] [id number] [address] [place] [address], [place] [address] Apr, [facility] [address] [id number] [address] [place] [address], [place] [address] Mar, [facility] [address] [id number] [address] [place] [address], [place] [address] Mar, [facility] [address] [id number] [address] [place] [address], [place] [address] Mar, [facility] [address] [id number] [address] [place] [address], [place] [address] Mar, [facility] [address] [id number] [address] [place] [address], [place] [address] Mar, [facility] [address] [id number] [address] [place] [address], [place] [address] Mar, [facility] [address] [id number] [address] [place] [address], [place] [address] Mar, [facility] [address] [id number] [address] [place] [address], [place] [address] Mar, [facility] [address] [id number] [address] [place] [address], [place] [address] Mar, [facility] [address] [id number] [address] [place] [address], [place] [address] Mar, [facility] [address] [id number] [address] [place] [address], [place] [address] Feb, [facility] [address] [id number] [address] [place] [address], [place] [address] Feb, [facility] [address] [id number] [address] [place] [address], [place] [address] Feb, [facility] [address] [id number] [address] [place] [address], [place] [address] Feb, [facility] [address] [id number] [address] [place] [address], [place] [address] Jan, [facility] [address] [id number] [address] [place] [address], [place] [address] Jan, [facility] [address] [id number] [address] [place] [address], [place] [address] Jan, [facility] [address] [id number] [address] [place] [address], [place] [address] Jan, [facility] [address] [id number] [address] [place] [address], [place] [address] Jan, [facility] [address] [id number] [address] [place] [address], [place] [address] Jan, [facility] [address] [id number] [address] [place] [id number], [place] [address] Dec, [facility] [address] [id number] [facility] [place] [address] Dec, [facility] [address] [id number] [address] [place] [address], [place] [address] Nov, [facility] [address] [id number] [address] [place] [address], [place] [address] Nov, [facility] [address] [id number] [address] [place] [address], [place] [address] Nov, [facility] [address] [id number] [address] [place] [address], [place] [address] Nov, [facility] [address] [id number] [address] [place] [address], [place] [address] Nov, [facility] [address] [id number] [address] [place] [address], [place] [address] Nov, [facility] [address] [id number] [address] [place] [address], [place] [address] Sep, [facility] [address] [id number] [address] [place] [address], [place] [address] Sep, [facility] [address] [id number] [address] [place] [address], [place] [address] Sep, [facility] [address] [id number] [address] [place] [address], [place] [address] Sep, [facility] [address] [id number] [address] [place] [address], [place] [address] Aug, [facility] [address] [id number] [address] [place] [address], [place] [address] Aug, [facility] [address] [id number] [address] [place] [address], [place] [address] Jul, [facility] [address] [id number] [address] [place] [address], [place] [address] Jul, [facility] [address] [id number] [address] [place] [address], [place] [address] Jun, [facility] [address] [id number] [address] [place] [address], [place] [address] Jun, [facility] [address] [id number] [address] [place] [address], [place] [address] Jun, [facility] [address] [id number] [address] [place] [address], [place] [address] Jun, [facility] [address] [id number] [address] [place] [address], [place] [address] May, [facility] [address] [id number] [address] [place] [address], [place] [address] May, [facility] [address] [id number] [address] [place] [address], [place] [address] May, [facility] [address] [id number] [address] [place] [address], [place] [address] May, [facility] [address] [id number] [address] [place] [address], [place] [address] May, [facility] [address] [id number] [address] [place] [address], [place] [address] May, [facility] [address] [id number] [address] [place] [address], [place] [address] Apr, [facility] [address] [id number] [address] [place] [address], [place] [address] Apr, [facility] [address] [id number] [address] [place] [address], [place] [address] Apr, [facility] [address] [id number] [address] [place] [address], [place] [address] Apr, [facility] [address] [id number] [address] [place] [address], [place] [address] Mar, [facility] [address] [id number] [address] [place] [address], [place] [address] Mar, [facility] [facility] [address] [id number] [address] [place] [address], [place] [address] Mar, [facility] [address] [id number] [address] [place] [address], [place] [address] Mar, [facility] [address] [id number] [address] [place] [address], [place] [address] Feb, [facility] [address] [id number] [place] [id number] Jan, [facility] [address] [id number] [address] [place] [address], [place] [address] Jan, [facility] [address] [id number] [address] [place] [address], [place] [address] Dec, [facility] [address] [id number] [address] [place] [address], [place] [address] Dec, [facility] [address] [id number] [address] [place] [address], [place] [address] Dec, [facility] [address] [facility] [address] [id number] [place] [id number] Dec, [facility] [address] [id number] [address] [place] [address], [place] [address] Nov, [facility] [address] [id number] [address] [place] [address], [place] [address] Nov, [facility] [address] [id number] [address] [place] [address] Nov, [facility] [address] [id number] [address] [place] [address], [place] [address] Nov, [facility] [address] [id number] [address] [place] [address], [place] [address] Nov, [facility] [address] [id number] [address] [place] [address], [place] [address] October, [facility] [address] [id number] [address] [place] [address] October, [facility] [address] [facility] [id number] [address] [address] Aug, [facility] [address] [facility] [id number] [address] [address] 13 Nov, 2011 IMMUNIZATIONS No Known Immunizations [...] 04/2019 Hospitalization History gastric sleeve Hospitalization History [facility] ER Trouble with left shoulder blade 08/2017
--- OUTSIDE RECORDS SUMMARY | 2019-11-29 09:40 | XMS REPORT ---
Author Curt Hess [facility] eClinicalWorks Address Unknown Phone Unavailable Care Team Providers Care Copyright Clerk Name Role Phone CHRIS DIAZ CP Unavailable [...] obesity E66.01 Active Medications No Known Medications Results No Known Results Summary Purpose eClinicalWorks Submission
--- OUTSIDE RECORDS SUMMARY | 2019-11-29 09:40 | XMS REPORT ---
Author Curt Hess [facility] eClinicalWorks Address Unknown Phone Unavailable Care Team Providers Care Wallpaperer Name Role Phone CHRIS DIAZ CP Unavailable Allergies, Adverse Reactions, Alerts Substance Reaction Event Type Wheat throat swells Non Drug Allergy Egg White throat swells Non Drug Allergy Cows Milk throat swells Non Drug Allergy Peanuts throat swells Non Drug Allergy Tenerius [place] throat swells Non Drug Allergy Reading throat swells Non Drug Allergy Ragweed throat [...] Active Problem Insomnia, unspecified 780.52 Active Assessment Fall on or from sidewalk curb E880.1 Active Assessment Rib pain on right side 786.50 Activ e Assessment Nausea and vomiting 787.01 Active Medications Medication Code System Code Instructions Start Date End Date Status Dosage Hydrochlorothiazide [facility] [address]-13 25 MG Orally Once a day [facility] 2014 1 Tablet by Oral route 1 time per day MetFORMIN HCl ER (MOD) [facility] [address]-98 1000 MG Orally tw ice a day January 08, 2015 1 tablet with evenin g meal Flonase [facility] [address]-02 50 mcg/actuation November 29, 2013 inhale 1 spray (50 mcg) in each nostril by intranasal route 2 times per day Lisinopril [facility] [address]-30 40 MG Orally Once a day August 21, 2014 1 Tablet by Oral route 1 time per day Omeprazole [facility] [address]-47 20 MG Orally Once a day 1 capsule Singulair [facility] 63737180055 10 MG 1 Tablet b y Oral route 1 time per day take 1 tablet by mouth 1 time per day Liraglutide [facility] [address]-26 18 MG/3ML Subcutaneous Once a da y January 08, 2015 Feb 07, 2015 0.2 ml Abilify [facility] [address]-24 5 MG Orally Once a day 1 tablet Flovent HFA [facility] [address]-29 110 mcg/actuation October 23, 2012 1-3 Puffs 1 time per day Atenolol [facility] [address]-91 100 MG Orally Once a day August 21, 2014 1 tablet by Oral route 1 time per day Meloxicam [facility] 27378080251 15 MG 1 take 1 t ablet by mouth 1 time per day Tricor [facility] 93884432763 145 MG 1 tablet by Oral route 1 time per day [facility] Procedures Procedure Coding System Code Date ASSAY OF AMYLASE CPT-4 79438 Feb 06, 2015 ASSAY OF LIPASE CPT-4 70900 Feb 06, 2015 COMPREHEN METABOLIC PANEL CPT-4 16827 Jan TORADOL (IM) 60 MG/2ML (UP TO 15 MG) CPT-4 J1885 Feb 06, 2015 Office Visit, Est Pt., Level 3 CPT-4 74084 A 2014 THER/PROPH/DIAG INJ, SC/IM CPT-4 49127 Jan 112014 Vital Signs Date/Time: Feb 06, 2015 Temperature 98.7 F Weight 442.3 lbs Height 72 in BMI 59.98 Index Blood Pressure Diastolic 84 mmHg Blood Pressure Systolic 138 mmHg Cardiac Monitoring Heart Rate 76 bpm Results Name Result Date Reference Range Unit Abnormali ty Flag Xray : Chest Summary Purpose eClinicalWorks Submission
--- OUTSIDE RECORDS SUMMARY | 2019-11-29 09:40 | XMS REPORT ---
Author Author Curt Torres Organization [facility] Address [address] [place] [address] Care Team Providers Care Attache Name Role Phone francoLuisPAIGEDAVID HENRYY Unavailable PROBLEMS Type Condition ICD9-CM Code [id number] Code Onset Dates Condition S tatus SNOMED Code Problem Insomnia G47.00 Active 767365323 Problem Morbid obesity E66.01 Active 56383 6002 Problem Benign essential hypertension I10 Active 7685098 Problem Hyperlipemia E78.5 Active 8827957 4 Problem Major depression F32.9 Active 370 757889 Problem Acute bacterial conjunctivitis of left eye H10.32 Active 023028243 Problem Recurrent major depressive disorder, in partial remission F33.41 Active 99406723 Problem Renal insufficiency N28.9 Active 019369857 Problem Type II diabetes mellitus E11.9 Acti ve 39860322 Problem Callus of foot L84 Active 69814 1005 Problem Edema R60.9 Active 062246690 ALLERGIES Unknown Allergies SOCIAL HISTORY No smoking Hx information available PLAN OF CARE VITAL SIGNS MEDICATIONS Medication Instructions Dosage Frequency Start Date End Date Duration S tatus Trintellix 20 mg Orally Once a day 1 tablet 24h Active RESULTS No Results PROCEDURES No Known procedures IMMUNIZATIONS No Known Immunizations
--- OUTSIDE RECORDS SUMMARY | 2019-11-29 09:40 | XMS REPORT ---
Author Author Curt LANG Organization [facility] Address [address] [place] [address] Care Team Providers Care Vendor Analyst Name Role Phone MANSI LANG Unavailable PROBLEMS Type Condition ICD9-CM Code SKR25-DN Code Onset Dates Condition S tatus SNOMED Code Problem Major depression F32.9 Active 370 019403 Problem Morbid obesity E66.01 Active 85041 6002 Problem Benign essential hypertension I10 Active 9908685 Problem Insomnia G47.00 Active 883175562 Problem Hyperlipemia E78.5 Active 0113200 4 Problem Acute bacterial conjunctivitis of left eye H10.32 Active 743234677 Problem Recurrent major depressive disorder, in partial remission F33.41 Active 93093984 Problem Edema R60.9 Active 463628344 Problem Type II diabetes mellitus E11.9 Acti ve 98041952 Problem Callus of foot L84 Active 61915 1005 Problem Renal insufficiency N28.9 Active 662048209 ALLERGIES Unknown Allergies SOCIAL HISTORY No smoking Hx information available PLAN OF CARE VITAL SIGNS MEDICATIONS Unknown Medications RESULTS No Results PROCEDURES No Known procedures IMMUNIZATIONS No Known Immunizations
--- OUTSIDE RECORDS SUMMARY | 2019-11-29 09:40 | XMS REPORT ---
Author Author Curt REBOLLAR Organization [facility] Address [address] [place] [address] Care Team Providers Care Central Service Tech Name Role Phone QUINTIN REBOLLAR Unavailable PROBLEMS Type Condition ICD9-CM Code [id number] Code Onset Dates Condition S tatus SNOMED Code Problem Major depression F32.9 Active 370 679325 Problem Benign essential hypertension I10 Active 3282985 Problem Insomnia G47.00 Active 749905889 Assessment Major depression F32.9 Feb, Active 682858067 Problem Hyperlipemia E78.5 Active 3593919 4 Problem Recurrent major depressive disorder, in partial remission F33.41 Active 17745086 Problem Callus of foot L84 Active 66862 1005 Problem Type II diabetes mellitus E11.9 Acti ve 61937052 Problem Morbid obesity E66.01 Active 48383 6002 Problem Edema R60.9 Active 473270738 Problem Renal insufficiency N28.9 Active 653042806 ALLERGIES Substance Reaction Event Type Date Status Wheat throat swells Non Drug Allergy Feb, Active Egg White throat swells Non Drug Allergy Feb, Active Cows Milk throat swells Non Drug Allergy Feb, Active Peanuts throat swells Non Drug Allergy Feb, Active Tenerius [place] throat swells Non Drug Allergy Feb, Active Cidra throat swells Non Drug Allergy Feb, Active Ragweed throat swells Non Drug Allergy Feb, Active SOCIAL HISTORY No smoking Hx information available PLAN OF CARE VITAL SIGNS MEDICATIONS Unknown Medications RESULTS No Results PROCEDURES Procedure Date Ordered Related Diagnosis Body Site Psych diagnostic evaluation w/medical services, estabmaría elena ished patient Mar 02, 2016 IMMUNIZATIONS No Known Immunizations
--- OUTSIDE RECORDS SUMMARY | 2019-11-29 09:40 | XMS REPORT ---
Author Author Curt DIAZ [facility] Address [address] [place] [address] Care Team Providers Care Security Guards Dispatcher Name Role Phone JOE CHRIS Unavailable PROBLEMS Type Condition ICD9-CM Code XHR02-FC Code Onset Dates Condition S tatus SNOMED Code Problem Recurrent major depressive disorder, in partial remission F33.41 Active 15673946 Problem Metabolic syndrome E88.81 Active 2 88610776 Problem Acute bacterial conjunctivitis of left eye H10.32 Active 635473570 Problem DANIELA (generalized anxiety disorder) F41.1 Active 27158267 Problem BMI 45.0-49.9, adult Z68.42 Active 075211964 Problem Anxiety F41.9 Active 52577070 Problem Severe episode of recurrent major depressive disorder, without psychotic features F33.2 Active 55416713 Problem Mixed obsessional thoughts and acts F42.2 Active 37905235 Problem Vitamin D deficiency E55.9 Active 47341191 Problem Insomnia G47.00 Active 605617662 Problem Major depression F32.9 Active 370 843595 Problem Hyperlipemia E78.5 Active 1988686 4 Problem Benign essential hypertension I10 Active 5511395 Problem Renal insufficiency N28.9 Active 653609444 Problem Morbid obesity E66.01 Active 43098 6002 Problem Edema R60.9 Active 908693083 Problem Type II diabetes mellitus E11.9 Acti ve 04314063 Problem Callus of foot L84 Active 23282 1005 ALLERGIES No Information ENCOUNTERS Encounter Location Date Diagnosis [facility] [address] [facility] [id number] [place] [address] Nov, [facility] [address] [facility] [address] [id number][place] [id number] October, [facility] [address] [facility] [id number], [place] [id number] October, [facility] [address] [facility] [id number] [address] [place] [address] October, BMI 45.0-49.9, adult Z68.42 ; Mixed obsessional thoughts and acts F42.2 ; Recurrent major depressive disorder, in partial remission F33.41 and DANIELA (generalized anxiety disorder) F41.[address] [id number], [place] [id number] October, Benign essential hypertension I10 ; Morb id obesity E66.01 and BMI 45.0-49.9, adult Z68.[address] [id number], [place] [id number] Sep, [address] [id number] [place] [address] [id number] Sep, [id number] [place] [address] [id number] Sep, [address] [id number] [place] [address] [id number] Sep, Hospital discharge follow-up Z09 ; Aller gic rhinitis, unspecified seasonality, unspecified trigger J30.9 and Shortness of breath R06.[id number] [place] [address] [id number] Sep, Recurrent major depressive disorder, in partial remission F33.[address] [id number] [place] [address] [id number] Aug, Irritable mood R45.4 [facility] [address] [facility] [id number] [address] [place] [address] Aug, [address] [id number] [place] [address] [id number] Jul, Benign essential hypertension I10 ; Robert a R60.9 and Impacted cerumen of left ear H61.22 [facility] [address] [facility] [id number] [address] [place] [address] 14 Jul, 2017 Major depression F32.9 ; Rec urrent major depressive disorder, in partial remission F33.41 and Anxiety F41.9 [facility] [address] [facility] [id number] [address] [place] [address] Jun, Major depression F32.9 ; Rec urrent major depressive disorder, in partial remission F33.41 and Anxiety F41.9 [facility] [place] [address] [id number], [place] [id number] Jun, Major depression F32.9 ; Morbid obesity E66.01 ; Irritable mood R45.4 ; Hand weakness R29.898 and Vitamin D deficiency E55.9 [facility] [place] [address] [id number], [place] [id number] Jun, [facility] [place] [address] [id number], [place] [id number] May, Major depression F32.9 [place] [address] [facility] [id number] [address] [place] [address] May, Major depression F32.9 [facility] [place] [address] [id number], [place] [id number] May, BMI 50.0-59.9, adult Z68.43 ; Major depr ession F32.9 ; Anxiety F41.9 ; Hypertrophic toenail L60.2 and Pain of left great toe M79.[address] [facility] [address] [id number], [place] [id number] May, Recurrent major depressive disorder, in partial remission F33.41 [facility] [address] [facility] [id number] [address] [place] [address] Apr, [facility] [address] [id number], [place] [id number] Apr, [facility] [address] [facility] [id number] [address] [place] [address] Apr, Major depression F32.9 [facility] [place] [address] [id number], [place] [id number] Apr, Severe episode of recurrent major depres sive disorder, without psychotic features F33.2 ; Anxiety F41.9 and Insomnia G47.00 [facility] [place] [address] [id number], [place] [id number] Apr, [facility] [address] [facility] [id number] [address] [place] [address] Apr, [facility] [place] [address] [id number], [place] [id number] Apr, [facility] [place] [address] [id number], [place] [id number] Mar, [facility] [place] [address] [id number], [place] [id number] Mar, Allergic conjunctivitis of both eyes H10 .13 [facility] [address] [facility] [id number] [address] [place] [address] Mar, Major depression F32.9 [facility] [address] [id number], [place] [id number] Mar, Metabolic syndrome E88.81 ; History of g astric bypass Z98.890 ; Benign essential hypertension I10 and Allergic conjunctivitis of both eyes H10.13 [facility] [address] [facility] [id number] [address] [place] [address] Mar, Major depression F32.9 [facility] [address] [id number], [place] [id number] Feb, [facility] [address] [facility] [id number] [address] [place] [address] Feb, Major depression F32.9 [facility] [id number] [place] [address] [id number] Feb, Subacute maxillary sinusitis J01.00 and Bronchitis J40 [facility] [address] [facility] [id number] [address] [place] [address] Feb, Major depressive disorder, r ecurrent, moderate F33.1 [facility] [place] [facility] [id number], [place] [id number] Jan, [facility] [address] [id number], [place] [id number] Jan, Acute non-recurrent maxillary sinusitis J01.00 and Skin tag L91.8 [facility] [place] [address] [place] [address] AV [id number], [place] [id number] Jan, Cough R05 and Sinus congestion R09.81 [facility] [place] [address] [place] [address] [place] [id number], [place] [id number] Jan, [facility] [address] [id number], [place] [id number] Jan, Benign essential hypertension I10 ; Hist ory of gastric bypass Z98.890 and Nausea and vomiting in adult R11.2 [facility] [address] [place], [place] [address] Jan, Major depressive disorder, r ecurrent, moderate F33.1 [facility] [address] [facility] [id number] [address] [place] [address] Dec, Insomnia G47.00 ; Recurrent major depressive disorder, in partial remission F33.41 and Morbid obesity E66.01 [facility] [address] [id number], [place] [id number] Dec, [facility] [address] [id number], [place] [id number] Dec, Chronic bacterial conjunctivitis of left eye H10.402 [facility] [address] [id number], [place] [id number] Nov, [facility] [id number], [place] [id number] Nov, Dental examination Z01.20 [facility] [place] [address] [place] [address] [id number], [place] [id number] Nov, Benign essential hypertension I10 ; Hist ory of gastric bypass Z98.890 and Nausea and vomiting in adult R11.2 [place] [address] [facility] [id number] [address] [place] [address] Nov, Major depressive disorder, r ecurrent, moderate F33.1 ; Generalized anxiety disorder F41.1 and Insomnia due to other mental disorder F51.[address] [id number] [address] [place] [address] Nov, Recurrent major depressive d isorder, in partial remission F33.41 ; Insomnia G47.00 and Morbid obesity E66.01 [facility] [address] [id number] [place], [facility] [id number] October, Abscess of left arm L02.414 [place] [id number] [address] [place] [address] October, Morbid obesity E66.01 ; Lida r depression F32.9 and Recurrent major depressive disorder, in partial remission F33.41 [facility] [id number] [place] [address] [id number] Sep, Benign essential hypertension I10 ; Morb id obesity E66.01 ; S/P gastric bypass Z98.84 ; Abscess L02.91 and Chronic bacterial conjunctivitis of left eye H10.[id number] [place] [address] [id number] Sep, Dental examination Z01.[address] [id number] [address] [place] [address] Sep, Morbid obesity E66.01 ; Lida r depression F32.9 and Recurrent major depressive disorder, in partial remission F33.[address] [id number] [address] [place] [address] Jul, [place] [address] [facility] [id number] [address] [place] [address] Jul, Major depressive disorder, r ecurrent, moderate F33.1 [address] [place] [address] Jul, Major depressive disorder, r ecurrent, moderate F33.1 and Generalized anxiety disorder F41.1 [facility] [address] [id number], [place] [id number] Jul, Cough R05 [place] [address] [place] [id number] [address] [place] [address] Jul, Morbid obesity E66.01 ; Lida r depression F32.9 and Recurrent major depressive disorder, in partial remission F33.41 [facility] [place] [id number] [place] [address] [id number] Jul, [facility] [place] [id number] [place] [address] [id number] Jul, [facility] [place] [id number] [place] [address] [id number] Jul, Gastroenteritis K52.9 and Cough R05 [facility] [id number] [place] [address] [id number] Jun, Acute bacterial conjunctivitis of left e ye H10.32 [place] [address] [place] [address] Jun, [place] [address] [address] Jun, Recurrent major depressive d isorder, in partial remission F33.41 [place] [address] [place] [id number] [address] [place] [address] May, Major depression F32.9 and M orbid obesity E66.01 [place] [address] [place] [id number] [address] [place] [address] May, [facility] [id number] [place] [address] [id number] May, Thrush B37.0 [place] [address] [address] Apr, Major depressive disorder, r ecurrent, moderate F33.1 [facility] [address] [facility] [id number] [address] [place] [address] Apr, Insomnia G47.00 ; Major depr ession F32.9 and Recurrent major depressive disorder, in partial remission F33.41 [facility] [address] [facility] [id number] [address] [place] [address] Apr, [facility] [address] [facility] [id number] [address] [place] [address] Apr, Major depression F32.9 and R ecurrent major depressive disorder, in partial remission F33.41 [facility] [address] [id number], [place] [id number] Mar, Benign essential hypertension I10 ; Morb id obesity E66.01 ; Impacted cerumen of both ears H61.23 ; Laceration of finger of right hand, initial encounter S61.219A and Encounter for immunization Z23 [facility] [address] [facility] [id number] [address] [place] [phone] 17 Mar, 2016 [facility] [address] [facility] [id number] [address] [place] [address] Mar, [facility] [address] [facility] [id number] [address] [place] [address] Mar, [facility] [address] [id number], [place] [id number] Feb, Nausea R11.0 ; Blood in the stool K92.1 and Benign essential hypertension I10 [facility] [address] [facility] [id number] [address] [place] [address] Feb, Major depression F32.9 and R ecurrent major depressive disorder, in partial remission F33.41 [facility] [address] [id number], [place] [id number] Feb, [facility] [id number] [place] [address] [id number] Feb, Recurrent major depressive disorder, in partial remission F33.41 [facility] [address] [id number], [place] [id number] Jan, [facility] [place] [address] [id number], [place] [id number] Jan, Benign essential hypertension I10 ; Robert a R60.9 and Hyperlipidemia, unspecified hyperlipidemia type E78.5 [facility] [address] [address] [id number], [place] [id number] Jan, Recurrent major depressive disorder, in partial remission F33.41 [facility] [place] [address] [id number] [place] [id number] Jan, [facility] [address] [address] [id number], [place] [id number] Jan, [facility] [place] [address] [id number], [place] [id number] Jan, [facility] [address] [facility] [id number] [address] [place] [address] Jan, [facility] [address] [facility] [id number] [address] [place] [address] Dec, [facility] [address] [facility] [id number] [address] [place] [address] Nov, [facility] [address] [facility] [id number] [address] [place] [address] Nov, Major depression F32.9 [facility] [address] [facility] [id number] [address] [place] [address] Nov, [facility] [address] [facility] [id number] [address] [place] [address] Nov, [facility] [address] [facility] [id number] [address] [place] [address] Nov, Major depressive disorder, r ecurrent episode, mild F33.0 and Anxiety F41.9 [facility] [place] [address] [id number], [place] [id number] Nov, [facility] [place] [id number] [facility] [id number], [place] [id number] October, Left elbow pain M25.522 and Other season al allergic rhinitis J30.2 [facility] [place] [address] [place] [address] AVE [id number], [place] [id number] October, [facility] [address] [facility] [id number] [address] [place] [address] October, Major depressive disorder, r ecurrent, moderate F33.1 [place] [address] [facility] [id number] [address] [place] [address] October, Major depression F32.9 [place] [address] [facility] [id number] [address] [place] [address] Sep, [place] or callus L84 and Onych omycosis B35.1 [place] [address] [facility] [id number] [address] [place] [address] Sep, Major depressive disorder, r ecurrent, moderate F33.1 [facility] [address] [facility] [id number] [address] [place] [address] Sep, Major depression F32.9 [place] [address] [facility] [id number] [address] [place] [address] Sep, Moderate episode of recurren t major depressive disorder F33.1 [facility] [address] [place] [address] AVE [id number], [place] [id number] Sep, Muscle strain T14.8 [facility] [address] [facility] [id number] [address] [place] [address] Aug, Major depression F32.9 [facility] [address] [facility] [id number] [address] [place] [address] Aug, Major depression F32.9 [facility] [address] [facility] [id number] [address] [place] [address] Jul, Morbid obesity E66.01 and Ma cora depression F32.9 [facility] [address] [facility] [id number] [address] [place] [address] Jul, Depression, major, recurrent , moderate F33.[address] [id number], [place] [id number] Jul, [facility] [address] [facility] [id number] [address] [place] [address] Jul, [place] [address] [facility] [id number] [address] [place] [address] Jul, Major depression F32.9 and M orbid obesity E66.01 [facility] [address] [facility] [address] [id number], [place] [id number] Jul, Type II diabetes mellitus E11.9 ; Callus of foot L84 ; Benign essential hypertension I10 and Renal insufficiency N28.9 [place] [address] [facility] [id number] [address] [place] [address] Jul, Depression, major, recurrent , moderate F33.1 [place] [address] [facility] [id number] [address] [place] [address] Jul, Major depression F32.9 [place] [address] [place] [id number] [address] [place] [address] Jul, [place] [address] [place] [id number] [address] [place] [address] Jun, Major depression F32.9 [place] [address] [facility] [id number] [address] [place] [address] Jun, Major depressive disorder, r ecurrent, moderate F33.1 [place] [address] [facility] [id number] [address] [place] [address] Jun, [place] [address] [place] [id number] [address] [place] [address] Jun, Major depressive disorder, r ecurrent, moderate F33.1 and Major depression F32.[address] [place] [address] [id number], [place] [id number] Jun, Type II diabetes mellitus E11.9 [facility] [address] [facility] [id number] [address] [place] [address] Jun, Depression, major, recurrent , moderate F33.1 [place] [address] [facility] [id number] [address] [place] [address] May, Major depressive disorder, r ecurrent, moderate F33.1 [place] [address] [facility] [id number] [address] [place] [address] May, [address] [id number], [place] [id number] May, Edema R60.9 [place] [id number] [address] [place] [address] May, Insomnia G47.00 and Major de pression F32.[address] [id number] [place] [address] [id number] 15 May, 2015 Morbid obesity E66.01 ; Edema R60.9 ; Sh ortness of breath R06.02 ; Benign essential hypertension I10 and Renal insufficiency N28.[address] [id number], [place] [id number] May, Hyperlipemia 272.4 and Renal insufficien cy N28.9 [place] [address] [facility] [id number] [address] [place] [address] Apr, Major depression F32.9 [place] [address] [facility] [id number] [address] [place] [address] Apr, [place] [address] [facility] [id number] [address] [place] [address] Apr, Major depressive disorder, r ecurrent, moderate F33.[address] [id number], [place] [id number] Apr, Type II diabetes mellitus E11.9 ; Benign essential hypertension I10 ; Edema R60.9 and Renal insufficiency N28.9 [place] [address] [place] [id number] [address] [place] [address] Mar, Major depressive disorder, r ecurrent, moderate F33.1 [place] [address] [place] [id number] [address] [place] [address] Mar, [place] [address] [place] [id number] [address] [place] [address] Mar, Major depression F32.9 [facility] [address] [facility] [id number], [place] [id number] Mar, Morbid obesity E66.01 ; Benign essential hypertension I10 and Type II diabetes mellitus E11.9 [place] [address] [place] [id number] [address] [place] [address] Feb, Major depressive disorder, r ecurrent, moderate F33.1 [place] [address] [place] [id number] [address] [place] [id number] Feb, Major depressive disorder, r ecurrent episode, in partial or unspecified remission 296.35 ; Anxiety state, unspecified 300.00 and Morbid obesity 278.01 [place] [address] [address] [facility] [id number] [address] [place] [phone] Feb, [facility] [address] [place], [place] [id number] [id number] Feb, Vomiting 787.03 and Viral syndrome 079.9 9 [place] [id number] [address] [place] [phone] 15 Feb, 2015 Major depression, recurrent 296.30 ; Generalized anxiety disorder 300.02 and No condition on [place] II V71.09 [facility] [address] [facility] [address] [address] [id number] [id number] Feb, Skin tag 701.9 [place] [id number] [address] [place] [id number] Feb, [facility] [address] [place] [id number] [address] [place] [id number] Jan, Depression, major, recurrent , moderate 296.32 [facility] [address] [id number] [id number] Jan, Nausea and vomiting 787.01 ; Rib pain on right side 786.50 and Fall on or from sidewalk curb E880.1 [facility] [address] [place] [id number] [address] [place] [id number] Jan, [facility] [address] [place] [id number] [address] [place] [id number] Jan, Major depressive disorder, r ecurrent episode, in partial or unspecified remission 296.35 and Anxiety state, unspecified 300.[id number] [place] [id number] Jan, [facility] [address] [facility] [id number] [address] [place] [phone] Jan, Depression, major, recurrent , moderate 296.32 [facility] [address] [place] [id number] [address] [place] [address] Jan, Major depression, recurrent 296.30 ; No condition on [place] II V71.09 and No condition on axis III V71.[address] [id number] [id number] Jan, Drug-induced nausea and vomiting 787.01 [facility] [address] [facility] [id number] [address] [place] [address] Jan, Depression, major, recurrent , moderate 296.32 [facility] [address] [facility] [id number] [address] [place] [address] Dec, Depression, major, recurrent , moderate 296.[address] [id number] [place] [id number] Dec, Morbid obesity 278.01 ; Metabolic syndro me 277.7 ; Hyperlipemia 272.4 ; Benign essential hypertension 401.1 ; Dietary counseling V65.3 ; Exercise counseling V65.41 and Inflamed skin tag 701.9 [place] [address] [address] Dec, Depression, major, recurrent , moderate 296.32 [place] [address] [address] Dec, [place] [address] [address] Dec, Major depression, recurrent 296.30 ; Anxiety, generalized 300.02 and No condition on [place] II V71.09 [place] [address] [address] Dec, Depression, major, recurrent , moderate 296.32 [place] [address] [address] Dec, Major depressive disorder, r ecurrent episode, moderate 296.[address] [address] Dec, Depression, major, recurrent , moderate 296.32 [place] [address] [address] Dec, Depression, major, recurrent , moderate 296.32 [place] [address] [address] Dec, Depression, major, recurrent , moderate 296.32 [place] [address] [address] Dec, Depression, major, recurrent , moderate 296.32 [place] [address] [address] Nov, Depression, major, recurrent , moderate 296.32 [place] [address] [address] 16 Nov, 2014 Major depression 296.20 ; So cial phobia 300.23 and No condition on [place] II V71.09 [facility] [address] [facility] [id number] [address] [place] [address] 16 Nov, 2014 Depression, major, recurrent , moderate 296.32 [facility] [address] [place] [id number] [address] [place] [address] Nov, Major depressive disorder, r ecurrent episode, moderate 296.32 and Generalized anxiety disorder 300.02 [facility] [address] [facility] [id number] [address] [place] [address] 09 Nov, 2014 Depression, major, recurrent , moderate 296.32 [facility] [address] [place] [id number] [address] [place] [address] Nov, Depression, major, recurrent , moderate 296.32 [facility] [address] [place] [id number] [place] [address] October, Generalized anxiety disorder 300.02 ; No condition on [place] II V71.09 and Major depressive disorder, recurrent 296.30 [facility] [address] [place] [id number] [address] [place] [address] 14 Sep, 2014 [facility] [address] [id number] [address] [place] [address] Sep, [facility] [address] [id number] [address] [place] [address] Aug, [facility] [address] [address] [id number] [address] [place] [address] Aug, [facility] [address] [id number] [address] [place] [address] Aug, [facility] [address] [address] [id number] [address] [place] [address] Aug, [facility] [address] [address] [id number] [address] [place] [address] Aug, [facility] [address] [id number] [facility] [place] [address] 20 Aug, 2014 [facility] [address] [id number] [address] [place] [address], [place] [address] 20 Aug, 2014 [facility] [address] [id number] [facility] [place] [address] 20 Aug, 2014 [facility] [address] [id number] [address] [place] [address], [place] [address] 13 Aug, 2014 [facility] [address] [id number] [address] [place] [address], [place] [address] 13 Aug, 2014 [facility] [address] [id number] [address] [place] [address], [place] [address] 13 Aug, 2014 [facility] [address] [id number] [address] [place] [address], [place] [address] Aug, [facility] [address] [id number] [address] [place] [address], [place] [address] Aug, [facility] [address] [id number] [address] [place] [address], [place] [address] Aug, [facility] [address] [id number] [address] [place] [address], [place] [address] Aug, [facility] [address] [id number] [address] [place] [address], [place] [address] 10 Aug, 2014 [facility] [address] [id number] [address] [place] [address], [place] [address] Aug, [facility] [address] [id number] [address] [place] [address], [place] [address] Aug, [facility] [address] [id number] [address] [place] [address], [place] [address] Jul, [facility] [address] [id number] [address] [place] [address], [place] [address] Jul, [facility] [address] [id number] [address] [place] [address], [place] [address] Jul, [facility] [address] [id number] [address] [place] [address], [place] [address] Jul, [facility] [address] [id number] [address] [place] [address], [place] [address] Jul, [facility] [address] [id number] [address] [place] [address], [place] [address] Jul, [facility] [address] [id number] [address] [place] [address], [place] [address] Jun, [facility] [address] [id number] [address] [place] [address], [place] [address] Jun, [facility] [address] [id number] [address] [place] [address], [place] [address] Jun, [facility] [address] [id number] [address] [place] [address], [place] [address] Jun, [facility] [address] [id number] [address] [place] [address], [place] [address] Jun, [facility] [address] [id number] [address] [place] [address], [place] [address] Jun, [facility] [address] [id number] [address] [place] [address], [place] [address] Jun, [facility] [address] [id number] [address] [place] [address], [place] [address] Jun, [facility] [address] [id number] [address] [place] [address], [place] [address] Jun, [facility] [address] [id number] [address] [place] [address], [place] [address] Jun, [facility] [address] [id number] [address] [place] [address], [place] [address] Jun, [facility] [address] [id number] [address] [place] [address], [place] [address] Jun, [facility] [address] [id number] [place], [place] S [id number] Jun, [facility] [address] [id number] [address] [place] [address], [place] [address] Jun, [facility] [address] [id number] [address] [place] [address], [place] [address] Jun, [facility] [address] [id number] [address] [place] [address], [place] [address] Jun, [facility] [address] [id number] [address] [place] [address], [place] [address] May, [facility] [address] [id number] [address] [place] [address], [place] [address] May, [facility] [address] [id number] [address] [place] [address], [place] [address] May, [facility] [address] [id number] [address] [place] [address], [place] [address] May, [facility] [address] [id number] [address] [place] [address], [place] [address] Apr, [facility] [address] [id number] [address] [place] [address], [place] [address] Apr, [facility] [address] [id number] [address] [place] [address], [place] [address] Apr, [facility] [address] [id number] [address] [place] [address], [place] [address] Apr, [facility] [address] [id number] [address] [place] [address], [place] [address] Apr, [facility] [address] [id number] [address] [place] [address], [place] [address] Apr, [facility] [address] [id number] [address] [place] [address], [place] [address] Apr, [facility] [address] [id number] [address] [place] [address], [place] [address] Apr, [facility] [address] [id number] [address] [place] [address], [place] [address] Apr, [facility] [address] [id number] [address] [place] [address], [place] [address] Apr, [facility] [address] [id number] [address] [place] [address], [place] [address] Apr, [facility] [address] [id number] [address] [place] [address], [place] [address] Apr, [facility] [address] [id number] [address] [place] [address], [place] [address] Apr, [facility] [address] [id number] [address] [place] [address], [place] [address] Apr, [facility] [address] [id number] [address] [place] [address], [place] [address] Apr, [facility] [address] [id number] [address] [place] [address], [place] [address] Apr, [facility] [address] [id number] [address] [place] [address], [place] [address] Apr, [facility] [address] [id number] [address] [place] [address] Apr, [facility] [address] [id number] [address] [place] [address] Apr, [facility] [address] [id number] [address] [place] [address] Apr, [facility] [address] [id number] [address] [place] [address], [place] [address] Mar, [facility] [address] [id number] [address] [place] [address], [place] [address] Mar, [facility] [address] [id number] [address] [place] [address] Mar, [facility] [address] [id number] [address] [place] [address] Mar, [facility] [address] [id number] [address] [place] [address], [place] [address] Mar, [facility] [address] [id number] [address] [place] [address], [place] [address] Mar, [facility] [address] [id number] [address] [place] [address], [place] [address] Mar, [facility] [address] [id number] [address] [place] [address], [place] [address] Mar, [facility] [address] [id number] [address] [place] [address], [place] [address] Mar, [facility] [address] [id number] [address] [place] [address], [place] [address] Mar, [facility] [address] [id number] [address] [place] [address], [place] [address] Feb, [facility] [address] [id number] [address] [place] [address], [place] [address] Feb, [facility] [address] [id number] [address] [place] [address], [place] [address] Feb, [facility] [address] [id number] [address] [place] [address], [place] [address] Feb, [facility] [address] [id number] [address] [place] [address], [place] [address] Jan, [facility] [address] [id number] [address] [place] [address], [place] [address] Jan, [facility] [address] [id number] [address] [place] [address], [place] [address] Jan, [facility] [address] [id number] [address] [place] [address], [place] [address] Jan, [facility] [address] [id number] [address] [place] [address], [place] [address] Jan, [facility] [address] [id number] [facility] [place] [address] Jan, [facility] [address] [id number] [facility] [place] [address] Dec, [facility] [address] [id number] [facility] [place] [address] Dec, [facility] [address] [id number] [facility] [place] [address] Nov, [facility] [address] [id number] [address] [place] [address], [place] [address] Nov, [facility] [address] [id number] [address] [place] [address], [place] [address] Nov, [facility] [address] [id number] [address] [place] [address], [place] [address] Nov, [facility] [address] [id number] [address] [place] [address], [place] [address] Nov, [facility] [address] [id number] [address] [place] [address], [place] [address] Nov, [facility] [address] [id number] [address] [place] [address], [place] [address] Sep, [facility] [address] [id number] [address] [place] [address], [place] [address] Sep, [facility] [address] [id number] [address] [place] [address], [place] [address] Sep, [facility] [address] [id number] [address] [place] [address], [place] [address] Sep, [facility] [address] [id number] [address] [place] [address], [place] [address] Aug, [facility] [address] [id number] [address] [place] [address], [place] [address] Aug, [facility] [address] [id number] [address] [place] [address], [place] [address] 14 Jul, 2013 [facility] [address] [id number] [address] [place] [address], [place] [address] 14 Jul, 2013 [facility] [address] [id number] [address] [place] [address], [place] [address] Jun, [facility] [address] [id number] [address] [place] [address], [place] [address] Jun, [facility] [address] [id number] [address] [place] [address], [place] [address] Jun, [facility] [address] [id number] [address] [place] [address], [place] [address] Jun, [facility] [address] [id number] [address] [place] [address], [place] [address] May, [facility] [address] [id number] [address] [place] [address], [place] [address] May, [facility] [address] [id number] [address] [place] [address], [place] [address] May, [facility] [address] [id number] [address] [place] [address], [place] [address] May, [facility] [address] [id number] [address] [place] [address], [place] [address] May, [facility] [address] [id number] [address] [place] [address], [place] [address] May, [facility] [address] [id number] [address] [place] [address], [place] [address] Apr, [facility] [address] [id number] [address] [place] [address], [place] [address] Apr, [facility] [address] [id number] [address] [place] [address], [place] [address] Apr, [facility] [address] [id number] [address] [place] [address], [place] [address] Apr, [facility] [address] [id number] [address] [place] [address], [place] [address] Mar, [facility] [address] [id number] [address] [place] [address], [place] [address] Mar, [facility] [address] [id number] [address] [place] [address], [place] [address] Mar, [facility] [address] [id number] [address] [place] [address], [place] [address] Mar, [facility] [address] [id number] [address] [place] [address], [place] [address] Feb, [facility] [place] [address] [id number] [place] [id number] Jan, [facility] [address] [id number] [address] [place] [address], [place] [address] Jan, [facility] [address] [id number] [address] [place] [address], [place] [address] Dec, [facility] [address] [id number] [address] [place] [address], [place] [address] Dec, [facility] [address] [id number] [address] [place] [address], [place] [address] Dec, [facility] [place] [address] [facility] [address] [id number] [place] [id number] Dec, [facility] [address] [id number] [address] [place] [address], [place] [address] 17 Nov, 2012 [facility] [address] [id number] [address] [place] [address], [place] [address] 14 Nov, 2012 [facility] [address] [id number] [address] [place] [address], [place] [address] 12 Nov, 2012 [facility] [address] [id number] [address] [place] [address], [place] [address] Nov, [facility] [address] [id number] [address] [place] [address], [place] [address] Nov, [facility] [address] [id number] [address] [place] [address] October, [facility] [address] [facility] [id number] [address] [place] [address] October, [facility] [address] [facility] [id number] [address] [place] [address] Aug, [facility] [address] [facility] [id number] [address] [place] [address] Nov, IMMUNIZATIONS No Known Immunizations SOCIAL HISTORY Never Assessed REASON FOR VISIT med PLAN OF CARE VITAL SIGNS MEDICATIONS Medication Instructions Dosage Frequency Start Date End Date Duration S tatus Viibryd 40 mg Orally Once a day 1 tablet with food 24h May, 30 days Active RESULTS No Results PROCEDURES [...] 03/2016 Hospitalization History gastric sleeve Hospitalization History [facility] ER Trouble with left shoulder blade 08/2017
--- OUTSIDE RECORDS SUMMARY | 2019-11-29 09:40 | XMS REPORT ---
Author Curt Hess [facility] [employer] Address Unknown Phone Unavailable Care Team Providers Care Flaking Roll Operator Name Role Phone CHRIS DIAZ CP Unavailable [...]
--- OUTSIDE RECORDS SUMMARY | 2019-11-29 09:40 | XMS REPORT ---
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[employer] Name Role Phone Migration, Doctor Unavailable Unavailable PROBLEMS Type Condition ICD9-CM Code [id number] Code Onset Dates Condition S tatus SNOMED Code Problem Edema R60.9 Active 972615698 Problem Morbid obesity E66.01 Active 70615 6002 Problem Metabolic syndrome E88.81 Active 2 15815668 Problem Renal insufficiency N28.9 Active 305258615 Problem Vitamin D deficiency E55.9 Active 90749644 Problem Severe episode of recurrent major depressive disorder, without psychotic features F33.2 Active 97574549 Problem DANIELA (generalized anxiety disorder) F41.1 Active 27291238 Problem Mixed obsessional thoughts and acts F42.2 Active 02348246 Problem Chronic fatigue R53.82 Active 8422 9001 Problem Other chronic pain G89.29 Active 8 6638241 Problem Borderline personality disorder F60.3 Active 37137705 Problem Attachment disorder F94.1 Active Problem Sciatica, right side M54.31 Active 234432447828903 Problem Insomnia G47.00 Active 463602547 Problem Anxiety F41.9 Active 30228406 Problem BMI 45.0-49.9, adult Z68.42 Active 417156073 Problem Hyperlipemia E78.5 Active 1115288 4 Problem Benign essential hypertension I10 Active 0755550 Problem Callous ulcer, limited to breakdown of skin L98.49 1 Active Problem Hammer toe of right foot M20.41 Activ e 936996001 Problem Hammer toe of second toe of right foot M20.41 Active 960443645 Problem Falling episodes R29.6 Active 161 [id number] ALLERGIES No Information ENCOUNTERS Encounter Location Date Diagnosis [facility] [address] [facility] [id number] [address] [place] [address] Dec, [facility] [address] [facility] [id number] [address] [place] [phone] 15 Dec, [address] [id number][place] [id number] Dec, [facility] [address] [facility] [id number] [address] [place] [address] Dec, [facility] [address] [facility] [id number] [address] [place] [address] Nov, [facility] [address] [facility] [id number] [address] [place] [phone] October, [facility] [address] [facility] [id number] [address] [place] [address] October, [facility] [id number] [place] [address] [id number] Sep, [facility] [address] [facility] [id number] [address] [place] [address] Sep, [facility] [address] [id number] [place] [address] [id number] Sep, [facility] [address] [facility] [id number] [address] [place] [phone] Sep, [facility] [address] [facility] [id number] [address] [place] [phone] Sep, [facility] [address] [facility] [id number] [address] [place] [phone] Sep, [facility] [address] [facility] [id number] [address] [place] [phone] Sep, [facility] [address] [facility] [id number] [address] [place] [address] Sep, DANIELA (generalized anxiety dis order) F41.1 ; Severe episode of recurrent major depressive disorder, without psychotic features F33.2 ; Mixed obsessional thoughts and acts F42.2 and Borderline personality disorder F60.3 [facility] [address] [place] [address] [id number] [place] [address] 13 Sep, 2019 Severe episode of recurrent major depres sive disorder, without psychotic features F33.2 [facility] [address] [id number], [place] [id number] Sep, [facility] [address] [place] [address] AVE [id number], [place] [id number] Sep, [address] [id number] [place] [address] [id number] Sep, Benign essential hypertension I10 [facility] [address] [facility] [id number] [address] [place] [phone] Sep, [facility] [address] [facility] [id number] [address] [place] [phone] Sep, [facility] [address] [facility] [id number] [address] [place] [address] Sep, [facility] [address] [place] [id number] [address] [place] [phone] Sep, DANIELA (generalized anxiety dis order) F41.1 ; Severe episode of recurrent major depressive disorder, without psychotic features F33.2 ; Mixed obsessional thoughts and acts F42.2 and Borderline personality disorder F60.[address] [id number], [place] [phone] Aug, [facility] [address] [facility] [id number] [address] [place] [phone] 28 Aug, [address] [id number] [place] [address] [id number] Aug, [facility] [address] [facility] [id number] [address] [place] [phone] Aug, [id number] [place] [address] [id number] 17 Aug, 2019 Dizzy R42 ; Weight gain R63.5 ; Benign e ssential hypertension I10 ; Falling episodes R29.6 and History of gastric bypass Z98.84 [facility] [address] [facility] [id number] [address] [place] [phone] 14 Aug, 2019 [facility] [address] [facility] [id number] [address] [place] [phone] Aug, [facility] [address] [facility] [id number] [address] [place] [phone] Aug, DANIELA (generalized anxiety dis order) F41.1 ; Severe episode of recurrent major depressive disorder, without psychotic features F33.2 ; Mixed obsessional thoughts and acts F42.2 and Borderline personality disorder F60.[address] [place] [place] [address] [id number][place] [id number] Aug, [id number] [place] [address] [id number] Aug, [place] [address] [facility] [id number] [address] [place] [phone] Aug, [id number] [place] [address] [id number] Aug, [place] [id number] [place] [address] [id number] Aug, [facility] [address] [facility] [id number] [address] [place] [phone] Aug, [id number] [place] [address] [id number] Aug, Severe episode of recurrent major depres sive disorder, without psychotic features F33.2 ; Borderline personality disorder F60.3 ; Anxiety F41.9 and Attachment disorder F94.1 [place] [address] [facility] [id number] [address] [place] [phone] Jul, [place] [address] [facility] [id number] [address] [place] [phone] Jul, DANIELA (generalized anxiety dis order) F41.1 ; Severe episode of recurrent major depressive disorder, without psychotic features F33.2 ; Mixed obsessional thoughts and acts F42.2 and Borderline personality disorder F60.[address] [place] [id number] [place] [address] [id number] Jul, [facility] [address] [facility] [id number] [address] [place] [phone] 17 Jul, 2019 [facility] [address] [facility] [id number] [address] [place] [phone] 14 Jul, 2019 [facility] [address] [facility] [id number] [address] [place] [phone] 12 Jul, 2019 [facility] [address] [facility] [id number] [address] [place] [phone] Jul, [facility] [address] [facility] [id number] [address] [place] [phone] Jun, DANIELA (generalized anxiety dis order) F41.1 ; Severe episode of recurrent major depressive disorder, without psychotic features F33.2 ; Mixed obsessional thoughts and acts F42.2 and Borderline personality disorder F60.3 [facility] [place] [address] [id number], [place] [phone] Jun, [facility] [address] [address] [id number], [place] [id number] Jun, [facility] [address] [facility] [id number] [address] [place] [phone] Jun, [facility] [address] [facility] [id number] [address] [place] [phone] Jun, DANIELA (generalized anxiety dis order) F41.1 ; Severe episode of recurrent major depressive disorder, without psychotic features F33.2 ; Mixed obsessional thoughts and acts F42.2 and Borderline personality disorder F60.3 [facility] [address] [id number], [place] [id number] Jun, [facility] [address] [id number], [place] [phone] Jun, [facility] [address] [address] [id number], [place] [phone] Jun, [facility] [address] [id number] [place] [phone] Jun, Benign essential hypertension I10 ; Morb id obesity E66.01 ; Severe episode of recurrent major depressive disorder, without psychotic features F33.2 ; Excess skin L98.7 and Hyperlipemia E78.5 [facility] [address] [facility] [id number] [address] [place] [phone] Jun, [facility] [address] [facility] [id number] [address] [place] [phone] May, [facility] [address] [facility] [id number] [address] [place] [phone] May, Severe episode of recurrent major depressive disorder, without psychotic features F33.2 ; Mixed obsessional thoughts and acts F42.2 ; DANIELA (generalized anxiety disorder) F41.1 and Borderline personality disorder F60.3 [place] [address] [facility] [id number] [address] [place] [phone] May, [facility] [address] [place] [id number] [address] [place] [phone] May, DANIELA (generalized anxiety dis order) F41.1 ; Severe episode of recurrent major depressive disorder, without psychotic features F33.2 ; Mixed obsessional thoughts and acts F42.2 and Borderline personality disorder F60.3 [place] [address] [facility] [id number] [address] [place] [phone] May, [facility] [address] [facility] [id number] [address] [place] [phone] May, [place] [address] [facility] [id number] [address] [place] [phone] May, Severe episode of recurrent major depressive disorder, without psychotic features F33.2 ; Mixed obsessional thoughts and acts F42.2 ; Borderline personality disorder F60.3 and DANIELA (generalized anxiety disorder) F41.1 [facility] [address] [id number] [address] [place] [address] [id number] May, Caries K02.[address] [id number], [place] [id number] May, Benign essential hypertension I10 [facility] [address] [id number], [place] [phone] Apr, [facility] [address] [id number], [place] [id number] Apr, Benign essential hypertension I10 [facility] [address] [place] [id number] [address] [place] [phone] Apr, Borderline personality disor romero F60.3 ; DANIELA (generalized anxiety disorder) F41.1 ; Mixed obsessional thoughts and acts F42.2 and Severe episode of recurrent major depressive disorder, without psychotic features F33.2 [facility] [address] [facility] [address] [id number], [place] [id number] Apr, [facility] [address] [facility] [address] [id number], [place] [id number] Apr, Benign essential hypertension I10 [facility] [address] [place] [id number] [address] [place] [phone] Apr, Severe episode of recurrent major depressive disorder, without psychotic features F33.2 ; DANIELA (generalized anxiety disorder) F41.1 ; Borderline personality disorder F60.3 and Mixed obsessional thoughts and acts F42.2 [facility] [address] [place] [id number] [address] [place] [address] [id number] Apr, Dental examination Z01.20 [facility] [address] [id number] [address] [place] [address] [id number] Apr, Caries K02.9 and Dental exam ination Z01.20 [facility] [address] [facility] [id number] [address] [place] [phone] Apr, DANIELA (generalized anxiety dis order) F41.1 ; Severe episode of recurrent major depressive disorder, without psychotic features F33.2 ; Mixed obsessional thoughts and acts F42.2 and Borderline personality disorder F60.3 [facility] [address] [place] [id number] [address] [place] [phone] Mar, Severe episode of recurrent major depressive disorder, without psychotic features F33.2 ; Mixed obsessional thoughts and acts F42.2 ; Borderline personality disorder F60.3 and DANIELA (generalized anxiety disorder) F41.1 [facility] [address] [facility] [id number] [address] [place] [phone] Mar, Severe episode of recurrent major depressive disorder, without psychotic features F33.2 ; Mixed obsessional thoughts and acts F42.2 ; DANIELA (generalized anxiety disorder) F41.1 and Borderline personality disorder F60.3 [facility] [address] [id number] [address] [place] [address] [phone] Mar, Dental examination Z01.20 an d Caries K02.9 [facility] [address] [id number], [place] [id number] Mar, Benign essential hypertension I10 and Fa lling episodes R29.6 [facility] [address] [facility] [id number] [address] [place] [phone] Mar, [facility] [address] [facility] [id number] [address] [place] [phone] Mar, Severe episode of recurrent major depressive disorder, without psychotic features F33.2 ; Mixed obsessional thoughts and acts F42.2 ; Borderline personality disorder F60.3 and DANIELA (generalized anxiety disorder) F41.1 [facility] [address] [facility] [id number] [address] [place] [phone] Mar, [facility] [address] [facility] [id number] [address] [place] [phone] Mar, [facility] [address] [id number], [place] [id number] Mar, [facility] [address] [facility] [id number] [address] [place] [phone] Mar, Severe episode of recurrent major depressive disorder, without psychotic features F33.2 ; Mixed obsessional thoughts and acts F42.2 ; Borderline personality disorder F60.3 and DANIELA (generalized anxiety disorder) F41.1 [facility] [address] [id number] [address] [place] [id number] 04 Mar, 2019 [facility] [address] [id number] [address] [place] [address] [id number] 30 Feb, 2019 Dental examination Z01.20 an d Periodontitis K05.30 [facility] [address] [facility] [id number] [address] [place] [phone] 30 Feb, 2019 DANIELA (generalized anxiety dis order) F41.1 ; Severe episode of recurrent major depressive disorder, without psychotic features F33.2 ; Mixed obsessional thoughts and acts F42.2 and Borderline personality disorder F60.3 [facility] [address] [id number], [place] [id number] 30 Feb, 2019 Acute pain of right knee M25.561 ; Fall, initial encounter W19.XXXA ; Benign essential hypertension I10 and Edema R60.9 [facility] [address] [facility] [id number] [address] [place] [phone] Feb, [facility] [address] [facility] [id number] [address] [place] [phone] 11 Feb, 2019 DANIELA (generalized anxiety dis order) F41.1 ; Severe episode of recurrent major depressive disorder, without psychotic features F33.2 ; Mixed obsessional thoughts and acts F42.2 and Borderline personality disorder F60.3 [facility] [address] [facility] [id number] [address] [place] [phone] Feb, [facility] [address] [facility] [id number] [address] [place] [phone] Jan, [facility] [address] [facility] [id number] [address] [place] [phone] Jan, [facility] [address] [facility] [id number] [address] [place] [phone] Jan, [facility] [address] [id number], [place] [id number] 15 Jan, 2019 Callus of heel L84 ; Fissure in skin R23 .4 and Hammer toe of second toe of right foot M20.41 [facility] [address] [id number], [place] [id number] Jan, [facility] [address] [facility] [id number] [address] [place] [phone] Jan, [facility] [address] [facility] [id number] [address] [place] [phone] Jan, [facility] [address] [facility] [id number] [address] [place] [phone] Jan, Severe episode of recurrent major depressive disorder, without psychotic features F33.2 ; DANIELA (generalized anxiety disorder) F41.1 ; Mixed obsessional thoughts and acts F42.2 and Borderline personality disorder F60.3 [place] [address] [facility] [id number] [address] [place] [address] Jan, [id number] [place] [address] [id number] Jan, Benign essential hypertension I10 [address] [id number] [place] [address] [id number] Dec, Callous ulcer, limited to breakdown of s kin L98.491 and Morbid obesity E66.01 [place] [address] [facility] [id number] [address] [place] [phone] Dec, [place] [address] [place] [id number] [address] [place] [phone] Dec, [facility] [address] [facility] [id number] [address] [place] [phone] Dec, [facility] [address] [facility] [id number] [address] [place] [phone] Dec, [facility] [address] [place] [id number] [address] [place] [phone] Dec, Severe episode of recurrent major depressive disorder, without psychotic features F33.2 [place] [address] [facility] [id number] [address] [place] [id number] Dec, DANIELA (generalized anxiety dis order) F41.1 ; Severe episode of recurrent major depressive disorder, without psychotic features F33.2 ; Mixed obsessional thoughts and acts F42.2 and Dependent personality disorder F60.7 [facility] [address] [id number], [place] [id number] Dec, Morbid obesity E66.01 [facility] [address] [facility] [id number] [address] [place] [phone] Dec, [facility] [address] [facility] [id number] [address] [place] [phone] Dec, [facility] JENNY [address] [id number] [address] Nov, [facility] [place] [address] [id number], [place] [id number] Nov, [facility] [address] [facility] [id number] [address] [place] [phone] Nov, [facility] [address] [facility] [id number] [address] [place] [address] Nov, [facility] [address] [facility] [id number] [address] [place] [phone] Nov, DANIELA (generalized anxiety dis order) F41.1 ; Severe episode of recurrent major depressive disorder, without psychotic features F33.2 ; Mixed obsessional thoughts and acts F42.2 and Dependent personality disorder F60.7 [facility] [place] [address] [id number], [place] [id number] Nov, Morbid obesity E66.01 [facility] [address] [facility] [id number] [address] [place] [phone] Nov, [facility] [address] [facility] [id number] [address] [place] [phone] Nov, DANIELA (generalized anxiety dis order) F41.1 ; Mixed obsessional thoughts and acts F42.2 ; Severe episode of recurrent major depressive disorder, without psychotic features F33.2 and Dependent personality disorder F60.7 [facility] Jama [facility] [address] [id number], [place] [id number] October, Morbid obesity E66.01 [facility] Jama [facility] [address] [id number], [place] [id number] October, Benign essential hypertension I10 and Mo rbid obesity E66.01 [facility] [address] [place] [address] [id number] [place] [address] [id number] October, [facility] [address] [facility] [id number] [address] [place] [phone] October, Severe episode of recurrent major depressive disorder, without psychotic features F33.2 [facility] Jama [facility] [address] [id number], [place] [id number] October, Morbid obesity E66.01 [facility] [address]ender[address] [place] [address] [id number], [place] [id number] October, [facility] [address] [place] [id number] [address] [place] [phone] October, Severe episode of recurrent major depressive disorder, without psychotic features F33.2 ; DANIELA (generalized anxiety disorder) F41.1 ; Mixed obsessional thoughts and acts F42.2 and 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 [facility] [place] [address] [place] [id number] [place] [address] [id number] October, Morbid obesity E66.01 [facility] [address] [facility] [id number] [address] [place] [address] [id number] Sep, Dental examination Z01.20 [facility] [id number] [place] [id number] Sep, [facility] [address] [id number] [place] [id number] Sep, Sore in mouth K13.79 and Mor bid obesity E66.01 [facility] [address] [id number] [address] [place] [id number] Sep, Dental examination Z01.20 [facility] [address] [facility] [id number] [address] [place] [address] Sep, Anxiety disorder, unspecifie d F41.9 [facility] [address] [id number] [id number] Sep, Mouth ulcer K12.[address] [id number] [id number] Sep, Morbid obesity E66.[address] [id number] [id number] Sep, Allergic rhinitis, unspecified seasonali ty, unspecified trigger J30.9 and Shortness of breath R06.02 [facility] [id number], [place] [id number] Sep, 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 [id number], [place] [id number] Aug, Mouth abscess K12.2 ; Mouth ulcer K12.1 ; Bloating R14.0 and Morbid obesity E66.01 [facility] [id number], [place] [id number] Aug, [facility] [id number], [place] [id number] Aug, [facility] [id number], [place] [id number] Jul, Major depressive disorder, recurrent, mo derate F33.1 ; Abscess of arm, left L02.414 ; BMI 45.0-49.9, adult Z68.42 and Morbid obesity E66.01 [facility] [address] [id number], [place] [id number] Jul, [facility] [id number], [place] [id number] Jul, [facility] [address] [address] [id number], [place] [id number] Jun, Pain in right knee M25.561 and Other chr onic pain G89.29 [facility] [address] [id number], [place] [id number] Jun, Benign essential hypertension I10 ; BMI 45.0-49.9, adult Z68.42 ; Morbid obesity E66.01 ; Vitamin D deficiency E55.9 ; Insomnia G47.00 ; Dependent personality disorder F60.7 ; Edema R60.9 ; Recurrent major depressive disorder, in partial remission F33.41 ; Chronic fatigue R53.82 ; Acute pain of right knee M25.561 ; Metabolic syndrome E88.81 and Irritable mood R45.4 [facility] [address] [facility] [id number] [address] [place] [address] Jun, [facility] [address] [id number], [place] [id number] Jun, Irritable mood R45.4 [facility] [address] [facility] [id number] [address] [place] [address] May, [facility] [address] [facility] [id number] [address] [place] [address] May, [facility] [address] [facility] [id number] [address] [place] [phone] 13 May, 2018 Recurrent major depressive d isorder, in partial remission F33.41 ; Mixed obsessional thoughts and acts F42.2 ; Dependent 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 and BMI 45.0-49.9, adult Z68.42 [facility] [address] [facility] [id number] [address] [place] [address] Apr, [facility] [address] [facility] [id number] [address] [place] [address] Apr, [facility] [address] [facility] [id number] [address] [place] [address] Apr, [facility] [address] [facility] [id number] [address] [place] [address] Apr, [place] [address] [facility] [id number] [address] [place] [address] Mar, Mixed obsessional thoughts a nd acts F42.2 ; Recurrent major depressive disorder, in partial remission F33.41 ; DANIELA (generalized anxiety disorder) F41.1 and BMI 45.0-49.9, adult Z68.42 [facility] [address] [id number], [place] [id number] Mar, [facility] [address] [id number], [place] [id number] Mar, BMI 45.0-49.9, adult Z68.42 ; Instabilit y of right knee joint M25.361 and Rash R21 [place] [address] [facility] [id number] [address] [place] [address] Jan, Recurrent major depressive d isorder, in partial remission F33.41 ; Mixed obsessional thoughts and acts F42.2 and BMI 45.0-49.9, adult Z68.42 [facility] [address] [id number], [place] [id number] Jan, [facility] [address] [id number], [place] [id number] Jan, Benign essential hypertension I10 ; BMI 45.0-49.9, adult Z68.42 ; Metabolic syndrome E88.81 and Allergic rhinitis, unspecified seasonality, unspecified trigger J30.9 [place] [address] [facility] [id number] [address] [place] [address] Dec, DANIELA (generalized anxiety dis order) F41.1 and Depressive disorder, not elsewhere classified F32.9 [facility] [address] [id number], [place] [id number] Dec, Recurrent major depressive disorder, in partial remission F33.41 [facility] [address] [id number], [place] [id number] Dec, [facility] [address] [id number], [place] [id number] Nov, [facility] [address] [id number], [place] [id number] Nov, Recurrent major depressive disorder, in partial remission F33.41 [facility] [address] [facility] [id number] [address] [place] [address] Nov, Recurrent major depressive d isorder, in partial remission F33.41 ; Mixed obsessional thoughts and acts F42.2 ; DANIELA (generalized anxiety disorder) F41.1 and BMI 45.0-49.9, adult Z68.42 [facility] [address] [id number], [place] [id number] Nov, [facility] [address] [id number], [place] [id number] Nov, Other conjunctivitis of both eyes H10.89 and Sciatica, right side M54.[address] [facility] [address] [id number], [place] [id number] Nov, [facility] [address] [id number], [place] [id number] Nov, [facility] [address] [id number], [place] [id number] October, [facility] [address] [id number], [place] [id number] October, [facility] [address] [facility] [id number] [address] [place] [address] October, BMI 45.0-49.9, adult Z68.42 ; Mixed obsessional thoughts and acts F42.2 ; Recurrent major depressive disorder, in partial remission F33.41 and DANIELA (generalized anxiety disorder) F41.[address] [facility] [address] [id number], [place] [id number] October, Benign essential hypertension I10 ; Morb id obesity E66.01 and BMI 45.0-49.9, adult Z68.[address] [facility] [address] [id number], [place] [id number] Sep, [facility] [id number], [place] [id number] Sep, [facility] [id number], [place] [id number] Sep, [address] [id number], [place] [id number] Sep, Hospital discharge follow-up Z09 ; Aller gic rhinitis, unspecified seasonality, unspecified trigger J30.9 and Shortness of breath R06.[address] [id number], [place] [id number] Sep, Recurrent major depressive disorder, in partial remission F33.[address] [id number], [place] [id number] Aug, Irritable mood R45.4 [place] [address] [place] [address] Aug, [address] [id number], [place] [id number] Jul, Benign essential hypertension I10 ; Robert a R60.9 and Impacted cerumen of left ear H61.22 [place] [address] [place] [address] Jul, Major depression F32.9 ; Rec urrent major depressive disorder, in partial remission F33.41 and Anxiety F41.9 [place] [address] [place] [id number] [address] [place] [address] Jun, Major depression F32.9 ; Rec urrent major depressive disorder, in partial remission F33.41 and Anxiety F41.[address] [id number], [place] [id number] Jun, Major depression F32.9 ; Morbid obesity E66.01 ; Irritable mood R45.4 ; Hand weakness R29.898 and Vitamin D deficiency E55.9 [facility] [address] [id number], [place] [id number] Jun, [facility] [address] [id number], [place] [id number] May, Major depression F32.9 [facility] [address] [facility] [id number] [address] [place] [address] May, Major depression F32.9 [facility] [address] [id number], [place] [id number] May, BMI 50.0-59.9, adult Z68.43 ; Major depr ession F32.9 ; Anxiety F41.9 ; Hypertrophic toenail L60.2 and Pain of left great toe M79.675 [facility] [address] [id number], [place] [id number] May, Recurrent major depressive disorder, in partial remission F33.41 [facility] [address] [place] [id number] [address] [place] [address] Apr, [facility] [address] [id number], [place] [id number] Apr, [facility] [address] [facility] [id number] [address] [place] [address] Apr, Major depression F32.9 [facility] [address] [id number], [place] [id number] Apr, Severe episode of recurrent major depres sive disorder, without psychotic features F33.2 ; Anxiety F41.9 and Insomnia G47.00 [facility] [address] [id number], [place] [id number] Apr, [facility] [address] [facility] [id number] [address] [place] [address] Apr, [facility] [address] [id number], [place] [id number] Apr, [facility] [address] [id number], [place] [id number] Mar, [facility] [address] [id number], [place] [id number] Mar, Allergic conjunctivitis of both eyes H10 .13 [facility] [address] [facility] [id number] [address] [place] [address] Mar, Major depression F32.9 [facility] [address] [id number], [place] [id number] Mar, Metabolic syndrome E88.81 ; History of g astric bypass Z98.890 ; Benign essential hypertension I10 ; Allergic conjunctivitis of both eyes H10.13 and Morbid obesity E66.01 [facility] [address] [facility] [id number] [address] [place] [phone] Mar, Major depression F32.9 [facility] [address] [facility] [address] [id number], [place] [id number] Feb, [facility] [address] [facility] [id number] [address] [place] [address] Feb, Major depression F32.9 [facility] [address] [facility] [id number], [place] [id number] Feb, Subacute maxillary sinusitis J01.00 and Bronchitis J40 [place] [address] [facility] [id number] [address] [place] [address] Feb, Major depressive disorder, r ecurrent, moderate F33.1 [facility] [address] [id number], [place] [id number] Jan, [facility] [address] [id number], [place] [id number] Jan, Acute non-recurrent maxillary sinusitis J01.00 and Skin tag L91.8 [facility] [address] [id number], [place] [id number] Jan, Cough R05 and Sinus congestion R09.[address] [facility] [address] [id number], [place] [id number] Jan, [facility] [address] [id number], [place] [id number] Jan, Benign essential hypertension I10 ; Hist ory of gastric bypass Z98.890 and Nausea and vomiting in adult R11.2 [facility] [address] [facility] [id number] [address] [place] [phone] 04 Jan, 2017 Major depressive disorder, r ecurrent, moderate F33.1 [place] [address] [facility] [id number] [address] [place] [address] Dec, Insomnia G47.00 ; Recurrent major depressive disorder, in partial remission F33.41 and Morbid obesity E66.01 [facility] [address] [place] [address] AVE [id number], [place] [id number] Dec, [facility] [id number] [place] [address] [id number] Dec, Chronic bacterial conjunctivitis of left eye H10.402 [facility] [id number], [place] [id number] Nov, [facility] [id number], [place] [id number] Nov, Dental examination Z01.20 [facility] [id number] [place] [address] [id number] Nov, Benign essential hypertension I10 ; Hist ory of gastric bypass Z98.890 and Nausea and vomiting in adult R11.2 [facility] [address] [facility] [id number] [address] [place] [id number] 13 Nov, 2016 Major depressive disorder, r ecurrent, moderate F33.1 ; Generalized anxiety disorder F41.1 and Insomnia due to other mental disorder F51.05 [place] [address] [facility] [id number] [address] [place] [address] 12 Nov, 2016 Recurrent major depressive d isorder, in partial remission F33.41 ; Insomnia G47.00 and Morbid obesity E66.01 [facility] [address] [id number] Kiesha ESCOBEDO S [id number] October, Abscess of left arm L02.414 [place] [address] [facility] [id number] [address] [place] [address] October, Morbid obesity E66.01 ; Lida r depression F32.9 and Recurrent major depressive disorder, in partial remission F33.41 [facility] [address] [id number], [place] [id number] Sep, Benign essential hypertension I10 ; Morb id obesity E66.01 ; S/P gastric bypass Z98.84 ; Abscess L02.91 and Chronic bacterial conjunctivitis of left eye H10.[address] [place] [address] [id number], [place] [id number] Sep, Dental examination Z01.20 [place] [address] [place] [id number] [address] [place] [address] Sep, Morbid obesity E66.01 ; Lida r depression F32.9 and Recurrent major depressive disorder, in partial remission F33.41 [place] [address] [place] [address] Jul, [place] [address] [place] [id number] [address] [place] [address] Jul, Major depressive disorder, r ecurrent, moderate F33.1 [place] [address] [place] [id number] [address] [place] [address] Jul, Major depressive disorder, r ecurrent, moderate F33.1 and Generalized anxiety disorder F41.[address] [place] [place] [address] [id number], [place] [id number] Jul, Cough R05 [place] [address] [facility] [id number] [address] [place] [address] 16 Jul, 2016 Morbid obesity E66.01 ; Lida r depression F32.9 and Recurrent major depressive disorder, in partial remission F33.41 [facility] [address] [id number], [place] [id number] Jul, [facility] [id number], [place] [id number] Jul, [facility] [address] [id number], [place] [id number] Jul, Gastroenteritis K52.9 and Cough R05 [facility] [id number] [place] [address] [id number] Jun, Acute bacterial conjunctivitis of left e ye H10.32 [facility] [address] [facility] [id number] [address] [place] [address] Jun, [facility] [address] [facility] [id number] [address] [place] [address] Jun, Recurrent major depressive d isorder, in partial remission F33.41 [facility] [address] [facility] [id number] [address] [place] [address] May, Major depression F32.9 and M orbid obesity E66.01 [facility] [address] [facility] [id number] [address] [place] [address] May, [facility] [address] [facility] [address] [address] [id number] [place] [address] [id number] May, Thrush B37.0 [facility] [address] [facility] [id number] [address] [place] [address] Apr, Major depressive disorder, r ecurrent, moderate F33.1 [facility] [address] [facility] [id number] [address] [place] [phone] Apr, Insomnia G47.00 ; Major depr ession F32.9 and Recurrent major depressive disorder, in partial remission F33.41 [facility] [address] [facility] [id number] [address] [place] [address] Apr, [facility] [address] [facility] [id number] [address] [place] [address] Apr, Major depression F32.9 and R ecurrent major depressive disorder, in partial remission F33.[address] [place] [address] [id number], [place] [id number] Mar, Benign essential hypertension I10 ; Morb id obesity E66.01 ; Impacted cerumen of both ears H61.23 ; Laceration of finger of right hand, initial encounter S61.219A and Encounter for immunization Z23 [facility] [address] [facility] [id number] [address] [place] [address] Mar, [facility] [address] [facility] [id number] [address] [place] [address] Mar, [facility] [address] [facility] [id number] [address] [place] [address] Mar, [address] [id number], [place] [id number] Feb, Nausea R11.0 ; Blood in the stool K92.1 and Benign essential hypertension I10 [facility] [address] [facility] [id number] [address] [place] [address] Feb, Major depression F32.9 and R ecurrent major depressive disorder, in partial remission F33.[address] [place] [address] [id number], [place] [id number] Feb, [address] [id number], [place] [id number] Feb, Recurrent major depressive disorder, in partial remission F33.[address] [place] [address] [id number], [place] [id number] Jan, [address] [id number], [place] [id number] Jan, Benign essential hypertension I10 ; Robert a R60.9 and Hyperlipidemia, unspecified hyperlipidemia type E78.[address] [place] [place] [address] [id number], [place] [id number] Jan, Recurrent major depressive disorder, in partial remission F33.41 [facility] [address] [id number] Kiesha ESCOBEDO S [id number] Jan, [facility] [address] [id number], [place] [id number] Jan, [facility] [address] [id number], [place] [id number] Jan, [facility] [address] [facility] [id number] [address] [place] [phone] Jan, [facility] [address] [facility] [id number] [address] [place] [address] Dec, [facility] [address] [facility] [id number] [address] [place] [address] Nov, [facility] [address] [facility] [id number] [address] [place] [address] Nov, Major depression F32.9 [facility] [address] [facility] [id number] [address] [place] [address] Nov, [facility] [address] [facility] [id number] [address] [place] [address] Nov, [facility] [address] [facility] [id number] [address] [place] [phone] Nov, Major depressive disorder, r ecurrent episode, mild F33.0 and Anxiety F41.9 [facility] [address] [id number], [place] [id number] Nov, [facility] [address] [id number], [place] [id number] October, Left elbow pain M25.522 and Other season al allergic rhinitis J30.2 [facility] [address] [id number], [place] [id number] October, [facility] [address] [facility] [id number] [address] [place] [address] October, Major depressive disorder, r ecurrent, moderate F33.1 [facility] [address] [facility] [id number] [address] [place] [address] October, Major depression F32.9 [facility] [address] [id number] [address] [place] [address] Sep, [place] or callus L84 and Onych omycosis B35.1 [facility] [address] [facility] [id number] [address] [place] [address] Sep, Major depressive disorder, r ecurrent, moderate F33.1 [facility] [address] [facility] [id number] [address] [place] [address] Sep, Major depression F32.9 [facility] [address] [facility] [id number] [address] [place] [address] Sep, Moderate episode of recurren t major depressive disorder F33.1 [facility] [id number] [place] [address] [id number] Sep, Muscle strain T14.8 [facility] [address] [facility] [id number] [address] [place] [phone] Aug, Major depression F32.9 [facility] [address] [facility] [id number] [address] [place] [address] Aug, Major depression F32.9 [facility] [address] [facility] [id number] [address] [place] [phone] Jul, Morbid obesity E66.01 and Ma cora depression F32.9 [facility] [address] [id number] [address] [place] [address] Jul, Depression, major, recurrent , moderate F33.1 [facility] [id number] [place] [address] [id number] Jul, [facility] [address] [facility] [id number] [address] [place] [address] Jul, [facility] [address] [place] [id number] [address] [place] [id number] 16 Jul, 2015 Major depression F32.9 and M orbid obesity E66.[address] [id number], [place] [id number] 11 Jul, 2015 Type II diabetes mellitus E11.9 ; Callus of foot L84 ; Benign essential hypertension I10 and Renal insufficiency N28.9 [place] [address] [place] [id number] [address] [place] [phone] 09 Jul, 2015 Depression, major, recurrent , moderate F33.1 [place] [address] [facility] [id number] [address] [place] [id number] Jul, Major depression F32.9 [place] [address] [address] [place] [id number] [address] [place] [phone] Jul, [place] [address] [phone] Jun, Major depression F32.9 [place] [address] [address] [place] [id number] [address] [place] [phone] Jun, Major depressive disorder, r ecurrent, moderate F33.1 [place] [address] [place] [phone] Jun, [place] [address] [place] [id number] Jun, Major depressive disorder, r ecurrent, moderate F33.1 and Major depression F32.[address] [id number] [id number] Jun, Type II diabetes mellitus E11.9 [place] [address] [address] [place] [id number] [address] [place] [id number] Jun, Depression, major, recurrent , moderate F33.1 [place] [address] [address] [facility] [id number] [address] [place] [phone] May, Major depressive disorder, r ecurrent, moderate F33.1 [facility] [address] [facility] [id number] [address] [place] [phone] May, [address] [id number] [place] [id number] May, Edema R60.9 [facility] [address] [facility] [id number] [address] [place] [id number] May, Insomnia G47.00 and Major de pression F32.[id number] [place] [id number] May, Morbid obesity E66.01 ; Edema R60.9 ; Sh ortness of breath R06.02 ; Benign essential hypertension I10 and Renal insufficiency N28.[address] [id number] [place] [address] [id number] May, Hyperlipemia 272.4 and Renal insufficien cy N28.9 [place] [id number] [facility] [id number] [address] [place] [address] Apr, Major depression F32.9 [place] [address] [address] [facility] [id number] [address] [place] [address] Apr, [place] [address] [address] [facility] [id number] [address] [place] [address] Apr, Major depressive disorder, r ecurrent, moderate F33.[address] [id number] [place] [address] [id number] Apr, Type II diabetes mellitus E11.9 ; Benign essential hypertension I10 ; Edema R60.9 and Renal insufficiency N28.9 [facility] [address] [facility] [id number] [address] [place] [address] Mar, Major depressive disorder, r ecurrent, moderate F33.1 [place] [address] [address] [facility] [id number] [address] [place] [address] Mar, [facility] [address] [facility] [id number] [address] [place] [address] Mar, Major depression F32.9 [facility] [id number] [place] [address] [id number] Mar, Morbid obesity E66.01 ; Benign essential hypertension I10 and Type II diabetes mellitus E11.9 [place] [address] [address] [facility] [id number] [address] [place] [address] Feb, Major depressive disorder, r ecurrent, moderate F33.1 [place] [address] [address] [facility] [id number] [address] [place] [address] Feb, Major depressive disorder, r ecurrent episode, in partial or unspecified remission 296.35 ; Anxiety state, unspecified 300.00 and Morbid obesity 278.01 [place] [address] [address] [facility] [id number] [address] [place] [address] Feb, [address] [id number] [place] [address] [id number] 16 Feb, 2015 Vomiting 787.03 and Viral syndrome 079.9 9 [place] [address] [address] [facility] [id number] [address] [place] [address] 15 Feb, 2015 Major depression, recurrent 296.30 ; Generalized anxiety disorder 300.02 and No condition on [place] II V71.[address] [id number] [place] [address] [id number] 03 Feb, 2015 Skin tag 701.9 [place] [address] [address] [facility] [id number] [address] [place] [address] Feb, [place] [address] [address] [facility] [id number] [address] [place] [address] Jan, Depression, major, recurrent , moderate 296.[address] [place] [id number] [place] [address] [id number] Jan, Nausea and vomiting 787.01 ; Rib pain on right side 786.50 and Fall on or from sidewalk curb E880.1 [place] [address] [address] [facility] [id number] [address] [place] [address] Jan, [facility] [address] [facility] [id number] [address] [place] [address] Jan, Major depressive disorder, r ecurrent episode, in partial or unspecified remission 296.35 and Anxiety state, unspecified 300.00 [facility] [address] [place] [address] AVE [id number] [id number] Jan, [facility] [address] [place] [address] [id number] [place] [address] Jan, Depression, major, recurrent , moderate 296.32 [place] [id number] [address] [place] [address] Jan, Major depression, recurrent 296.30 ; No condition on [place] II V71.09 and No condition on axis III V71.09 [facility] [address] [place] [address] AVE [id number] [id number] Jan, Drug-induced nausea and vomiting 787.01 [place] [id number] [address] [place] [address] Jan, Depression, major, recurrent , moderate 296.[address] [id number] [address] [place] [address] Dec, Depression, major, recurrent , moderate 296.32 [facility] [address] [place] [address] AVE [id number] [id number] Dec, Morbid obesity 278.01 ; Metabolic syndro me 277.7 ; Hyperlipemia 272.4 ; Benign essential hypertension 401.1 ; Dietary counseling V65.3 ; Exercise counseling V65.41 and Inflamed skin tag 701.9 [place] [id number] [address] [place] [address] Dec, Depression, major, recurrent , moderate 296.[address] [id number] [address] [place] [address] Dec, [place] [id number] [address] [place] [address], [place] [address] Dec, Major depression, recurrent 296.30 ; Anxiety, generalized 300.02 and No condition on [place] II V71.09 [place] [address] [address] [place] [id number] Dec, Depression, major, recurrent , moderate 296.32 [place] [address] [address] Dec, Major depressive disorder, r ecurrent episode, moderate 296.32 [place] [address] [address] Dec, Depression, major, recurrent , moderate 296.32 [place] [address] [place] [id number] Dec, Depression, major, recurrent , moderate 296.32 [place] [id number] Dec, Depression, major, recurrent , moderate 296.32 [place] [address] [address] Dec, Depression, major, recurrent , moderate 296.32 [place] [address] [address] Nov, Depression, major, recurrent , moderate 296.32 [place] [address] [address] Nov, Major depression 296.20 ; So cial phobia 300.23 and No condition on [place] II V71.[address] [address] Nov, Depression, major, recurrent , moderate 296.32 [place] [id number] Nov, Major depressive disorder, r ecurrent episode, moderate 296.32 and Generalized anxiety disorder 300.02 [place] [address] [place] [address] [address] 09 Nov, 2014 Depression, major, recurrent , moderate 296.32 [facility] [address] [id number] [address] [place] [address] 04 Nov, 2014 Depression, major, recurrent , moderate 296.32 [facility] [address] [facility] [id number] [address] [place] [address] October, Generalized anxiety disorder 300.02 ; No condition on [place] II V71.09 and Major depressive disorder, recurrent 296.30 [facility] [address] [id number] [address] [place] [address] Sep, [facility] [address] [id number] [address] [place] [address] Sep, [facility] [address] [id number] [address] [place] [address] Aug, [facility] [address] [id number] [address] [place] [id number] 24 Aug, 2014 [facility] [address] [id number] [address] [place] [address] Aug, [facility] [address] [id number] [address] [place] [address] Aug, [facility] [address] [id number] [address] [place] [address] Aug, [facility] [address] [id number] [address] [place] [address] Aug, [facility] [address] [id number] [address] [place] [address] Aug, [facility] [address] [id number] [address] [place] [address] Aug, [facility] [address] [id number] [address] [place] [address] Aug, [facility] [address] [id number] [address] [place] [id number] 13 Aug, 2014 [facility] [address] [id number] [address] [place] [address], [place] [address] 13 Aug, 2014 [facility] [place] [facility] [address] [id number] [address] [place] [address], [place] [address] Aug, [facility] [address] [id number] [address] [place] [address], [place] [address] Aug, [facility] [place] [facility] [address] [id number] [address] [place] [address], [place] [address] Aug, [facility] [address] [id number] [address] [place] [address], [place] [address] Aug, [facility] [address] [id number] [address] [place] [address], [place] [address] Aug, [facility] [address] [id number] [address] [place] [address], [place] [address] Aug, [facility] [place] [facility] [address] [id number] [address] [place] [address] Aug, [facility] [address] [id number] [address] [place] [address], [place] [address] Jul, [facility] [address] [id number] [address] [place] [address], [place] [address] Jul, [facility] [place] [facility] [address] [id number] [address] [place] [address], [place] [address] Jul, 2014 [facility] [place] [facility] [address] [id number] [address] [place] [address] Jul, 2014 [facility] [place] [facility] [address] [id number] [address] [place] [address], [place] [address] Jul, [facility] [place] [facility] [address] [id number] [address] [place] [address] Jul, [facility] [place] [facility] [address] [id number] [address] [place] [address] Jun, [facility] [place] [facility] [address] [id number] [address] [place] [address], [place] [address] Jun, [facility] [address] [id number] [address] [place] [address], [place] [address] Jun, [facility] [address] [id number] [address] [place] [address], [place] [address] Jun, [facility] [address] [id number] [address] [place] [address], [place] [address] Jun, [facility] [address] [id number] [address] [place] [address], [place] [address] Jun, [facility] [address] [id number] [address] [place] [address], [place] [address] Jun, [facility] [address] [id number] [address] [place] [address], [place] [address] Jun, [facility] [address] [id number] [address] [place] [address], [place] [address] Jun, [facility] [address] [id number] [address] [place] [address], [place] [address] Jun, [facility] [address] [id number] [address] [place] [address], [place] [address] Jun, [facility] [address] [id number] [address] [place] [address], [place] [address] Jun, [facility] [place] [address] [id number] [place] [id number] Jun, [facility] [address] [id number] [address] [place] [address], [place] [address] Jun, [facility] [address] [id number] [address] [place] [address], [place] [address] Jun, [facility] [address] [id number] [address] [place] [address], [place] [address] Jun, [facility] [address] [id number] [address] [place] [address] [address] May, [facility] [place] [facility] [address] [id number] [address] [place] [address], [place] [address] May, [facility] [place] [facility] [address] [id number] [address] [place] [address], [place] [address] May, [facility] [place] [facility] [address] [id number] [address] [place] [address], [place] [address] May, [facility] [place] [facility] [address] [id number] [address] [place] [address], [place] [address] Apr, [facility] [place] [facility] [address] [id number] [address] [place] [address], [place] [address] Apr, [facility] [place] [facility] [address] [id number] [address] [place] [address], [place] [address] Apr, [facility] [place] [facility] [address] [id number] [address] [place] [address], [place] [address] Apr, [facility] [place] [facility] [address] [id number] [address] [place] [address], [place] [address] Apr, [facility] [place] [facility] [address] [id number] [address] [place] [address], [place] [address] Apr, [facility] [place] [facility] [address] [id number] [address] [place] [address], [place] [address] Apr, [facility] [place] [facility] [address] [id number] [address] [place] [address] Apr, [facility] [place] [facility] [address] [id number] [address] [place] [address] Apr, [facility] [place] [facility] [address] [id number] [address] [place] [address], [place] [address] Apr, [facility] [place] [facility] [address] [id number] [address] [place] [address], [place] [address] Apr, [facility] [place] [facility] [address] [id number] [address] [place] [address], [place] [address] Apr, [facility] [place] [facility] [address] [id number] [address] [place] [address], [place] [address] Apr, [facility] [place] [facility] [address] [id number] [address] [place] [address], [place] [address] Apr, [facility] [place] [facility] [address] [id number] [address] [place] [address], [place] [address] Apr, [facility] [place] [facility] [address] [id number] [address] [place] [address], [place] [address] Apr, [facility] [place] [facility] [address] [id number] [address] [place] [address], [place] [address] Apr, [facility] [place] [facility] [address] [id number] [address] [place] [address], [place] [address] Apr, [facility] [place] [facility] [address] [id number] [address] [place] [address], [place] [address] Apr, [facility] [place] [facility] [address] [id number] [address] [place] [address], [place] [address] Apr, [facility] [place] [facility] [address] [id number] [address] [place] [address], [place] [address] Mar, [facility] [place] [facility] [address] [id number] [address] [place] [address], [place] [address] Mar, [facility] [place] [facility] [address] [id number] [address] [place] [address], [place] [address] Mar, [facility] [place] [facility] [address] [id number] [address] [place] [address], [place] [address] Mar, [facility] [place] [facility] [address] [id number] [address] [place] [address] Mar, [facility] [place] [facility] [address] [id number] [address] [place] [address], [place] [address] Mar, [facility] [place] [facility] [address] [id number] [address] [place] [address], [place] [address] Mar, [facility] [place] [facility] [address] [id number] [address] [place] [address], [place] [address] Mar, [facility] [place] [facility] [address] [id number] [address] [place] [address], [place] [address] Mar, [facility] [address] [id number] [address] [place] [address], [place] [address] Mar, [facility] [address] [id number] [address] [place] [address], [place] [address] Feb, [facility] [place] [facility] [address] [id number] [address] [place] [address], [place] [address] Feb, [facility] [address] [id number] [address] [place] [address], [place] [address] Feb, [facility] [address] [id number] [address] [place] [address], [place] [address] Feb, [facility] [address] [id number] [address] [place] [address], [place] [address] Jan, [facility] [address] [id number] [address] [place] [address], [place] [address] Jan, [facility] [address] [id number] [address] [place] [address], [place] [address] Jan, [facility] [address] [id number] [address] [place] [address], [place] [address] Jan, [facility] [address] [id number] [address] [place] [address], [place] [address] Jan, [facility] [place] [facility] [address] [id number] [address] [place] [address], [place] [address] Jan, [facility] [address] [id number] [address] [place] [address], [place] [address] Dec, [facility] [place] [facility] [address] [id number] [address] [place] [address], [place] [address] Dec, [facility] [address] [id number] [address] [place] [address], [place] [address] Nov, [facility] [place] [facility] [address] [id number] [address] [place] [address], [place] [address] Nov, [facility] [address] [id number] [facility] [place] [address] Nov, [facility] [address] [id number] [address] [place] [address], [place] [address] Nov, [facility] [address] [id number] [address] [place] [address], [place] [address] Nov, [facility] [address] [id number] [address] [place] [address], [place] [address] Nov, [facility] [address] [id number] [address] [place] [address], [place] [address] Sep, [facility] [address] [id number] [address] [place] [address], [place] [address] Sep, [facility] [address] [id number] [address] [place] [address], [place] [address] Sep, [facility] [address] [id number] [address] [place] [address], [place] [address] Sep, [facility] [address] [id number] [address] [place] [address], [place] [address] Aug, [facility] [address] [id number] [address] [place] [address], [place] [address] Aug, [facility] [address] [id number] [address] [place] [address], [place] [address] Jul, [facility] [place] [facility] [address] [id number] [address] [place] [address], [place] [address] Jul, [facility] [place] [facility] [address] [id number] [address] [place] [address], [place] [address] Jun, [facility] [place] [facility] [address] [id number] [address] [place] [address], [place] [address] Jun, [facility] [place] [facility] [address] [id number] [address] [place] [address], [place] [address] Jun, [facility] [place] [facility] [address] [id number] [address] [place] [address], [place] [address] 16 Jun, 2013 [facility] [address] [id number] [address] [place] [address], [place] [address] May, [facility] [address] [id number] [address] [place] [address], [place] [address] May, [facility] [address] [id number] [address] [place] [address], [place] [address] May, [facility] [address] [id number] [address] [place] [address], [place] [address] May, [facility] [address] [id number] [address] [place] [address], [place] [address] May, [facility] [address] [id number] [address] [place] [address], [place] [address] May, [facility] [address] [id number] [address] [place] [address], [place] [address] Apr, [facility] [address] [id number] [address] [place] [address], [place] [address] Apr, [facility] [address] [id number] [address] [place] [address], [place] [address] Apr, [facility] [address] [id number] [address] [place] [address], [place] [address] Apr, [facility] [address] [id number] [address] [place] [address], [place] [address] Mar, [facility] [address] [id number] [address] [place] [address], [place] [address] Mar, [facility] [address] [id number] [address] [place] [address], [place] [address] Mar, [facility] [address] [id number] [address] [place] [address], [place] [address] Mar, [facility] [address] [id number] [address] [place] [address], [place] [address] Feb, [facility] [address] [id number] [place] [id number] Jan, [facility] [address] [id number] [address] [place] [phone] Jan, [facility] [address] [id number] [address] [place] [phone] Dec, [facility] [address] [id number] [address] [place] [phone] Dec, [facility] [address] [id number] [address] [place] [phone] Dec, [facility] [address] [id number] [place] [id number] Dec, [facility] [address] [id number] [address] [place] [phone] Nov, [facility] [address] [id number] [address] [place] [phone] Nov, [facility] [address] [id number] [address] [place] [phone] Nov, [facility] [address] [id number] [address] [place] [phone] Nov, [facility] [address] [id number] [address] [place] [phone] Nov, [facility] [address] [id number] [address] [place] [phone] October, [facility] [address] [id number] [address] [place] [phone] October, [facility] [address] [id number] [address] [place] [phone] Aug, [facility] [address] [id number] [address] [place] [phone] 13 Nov, 2011 IMMUNIZATIONS No Known Immunizations [...] 04/2019 Hospitalization History gastric sleeve Hospitalization History [facility] Trouble with left shoulder blade 08/2017
--- OUTSIDE RECORDS SUMMARY | 2019-11-29 09:40 | XMS REPORT ---
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 Making Machine Operator Name Role Phone DILSHAD GRIGSBY Unavailable Allergies No Known Allergies Problems Problem Type Condition Code Onset Dates Condition Statu s Problem Hyperlipemia E78.5 Active Problem Insomnia G47.00 Active Problem Major depression F32.9 Active Assessment Major depressive disorder, recurrent, moderate F33.1 Active Problem Callus of foot L84 Active Problem Edema R60.9 Active Problem Recurrent major depressive disorder, in partial remiss ion F33.41 Active Problem Morbid obesity E66.01 Active Problem Benign essential hypertension I10 Active Problem Renal insufficiency N28.9 Active Problem Type II diabetes mellitus E11.9 Ac tive Medications Medication Code System Code Instructions Start Date End Date Status Dosage Flonase NDC 0 50 mcg/actuation November 29, 2013 inhale 1 spray (50 mcg) in each nostril by intranasal route 2 times per day Montelukast Sodium [facility] [id number] 10 MG T MERYL ONE TABLET BY MOUTH DAILY Lisinopril [facility] [address]-33 40 mg 1 Table t by Oral route 1 time per day Once a day Orally Omeprazole [facility] [id number] 20 MG 1 Tablet by Oral route 1 time per day Flovent HFA [facility] [address]-60 110 mcg/actuation October 23, 2012 1-3 Puffs 1 time per day Rexulti [facility] [address]-22 1 MG Orally Once a day Jun 19, [address] [facility] [address]-58 50 MG Orally Once a day 1 tablet Cetirizine HCl [facility] 19092222201 10 mg Orally Once a day 1 tablet Duloxetine HCl [facility] [address]-91 30 MG Orally daily Apr 26, 2016 1 capsule X 2 weeks then 2 caps every am Procedures Procedure Coding System Code Date Office Visit, Est Pt., Level 4 CPT-4 05037 Apr 26, 2016 Vital Signs Date/Time: Apr 26, 2016 Cardiac Monitoring Heart Rate 70 bpm Weight 414 lbs Height 71.5 in BMI 56.93 Index Blood Pressure Diastolic 78 mmHg Blood Pressure Systolic 130 mmHg Results No Known Results Summary Purpose eClinicalWorks Submission
--- OUTSIDE RECORDS SUMMARY | 2019-11-29 09:40 | XMS REPORT ---
Author Author Curt GRIGSBY Organization [employer] Address Unknown Phone Unavailable Care Team Providers Care Plastic Mould Maker Name Role Phone DILSHAD GRIGSBY Unavailable Allergies [...] Start Date End Date Status Dosage Trintellix [facility] [address]-42 20 MG Orally Once a day Mar 24, 2016 1 tablet Results No Known Results Summary Purpose [employer] Submission
--- OUTSIDE RECORDS SUMMARY | 2019-11-29 09:41 | XMS REPORT ---
Author Curt Hess [facility] [employer] Address Unknown Phone Unavailable Care Team Providers Care Combination Machine Tool Setter Name Role Phone CHRIS DIAZ CP Unavailable Allergies No Known Allergies Problems Problem Type Condition Code Onset Dates Condition Statu s Problem Hyperlipemia E78.5 Active Assessment Edema R60.9 Active Problem Renal insufficiency N28.9 Active Problem Type II diabetes mellitus E11.9 Ac tive Problem Edema R60.9 Active Problem Insomnia G47.00 Active Problem Major depression F32.9 Active Problem Morbid obesity E66.01 Active Problem Benign essential hypertension I10 Active Medications No Known Medications Results No Known Results Summary Purpose [employer] Submission
--- OUTSIDE RECORDS SUMMARY | 2019-11-29 09:41 | XMS REPORT ---
Author Author Curt DIAZ [facility] Address [address] [place] [address] Care Team Providers Care C D Area Supervisor Name Role Phone CHRIS DIAZ Unavailable PROBLEMS Type Condition ICD9-CM Code DOA89-IV Code Onset Dates Condition S tatus SNOMED Code Problem Recurrent major depressive disorder, in partial remission F33.41 Active 11030873 Problem Metabolic syndrome E88.81 Active 2 67132305 Problem Acute bacterial conjunctivitis of left eye H10.32 Active 890405480 Problem DANIELA (generalized anxiety disorder) F41.1 Active 01258685 Problem BMI 45.0-49.9, adult Z68.42 Active 214472778 Problem Anxiety F41.9 Active 54181737 Problem Severe episode of recurrent major depressive disorder, without psychotic features F33.2 Active 61405943 Problem Mixed obsessional thoughts and acts F42.2 Active 79364009 Problem Vitamin D deficiency E55.9 Active 12645262 Problem Insomnia G47.00 Active 499860782 Problem Major depression F32.9 Active 370 409959 Problem Hyperlipemia E78.5 Active 3453225 4 Problem Benign essential hypertension I10 Active 1978808 Problem Renal insufficiency N28.9 Active 112669816 Problem Morbid obesity E66.01 Active 13519 6002 Problem Edema R60.9 Active 306510005 Problem Type II diabetes mellitus E11.9 Acti ve 75631635 Problem Callus of foot L84 Active 42175 1005 ALLERGIES Substance Reaction Event Type Date Status [place] Elm throat swells Drug Allergy Jun, Active Peanut (Diagnostic) throat swells Drug Allergy Jun, Active Egg White (Diagnostic) throat swells Drug Allergy Jun, Acti ve alternaria tenuis throat swells Non Drug Allergy Jun, Activ e Cows Milk throat swells Non Drug Allergy Jun, Active Wheat throat swells Non Drug Allergy Jun, Active Ragweed throat swells Non Drug Allergy Jun, Active ENCOUNTERS Encounter Location Date Diagnosis [facility] [address] [facility] [id number] [address] [place] [address] Nov, [facility] [address] [id number] [place] [id number] Nov, [facility] [address] [id number] [place] [id number] October, [facility] [address] [id number] [place] [id number] October, [facility] [address] [facility] [id number] [address] [place] [address] October, BMI 45.0-49.9, adult Z68.42 ; Mixed obsessional thoughts and acts F42.2 ; Recurrent major depressive disorder, in partial remission F33.41 and DANIELA (generalized anxiety disorder) F41.1 [facility] [address] [id number] [place] [id number] October, Benign essential hypertension I10 ; Morb id obesity E66.01 and BMI 45.0-49.9, adult Z68.42 [facility] [address] [id number] [place] [id number] Sep, [facility] [address] [id number] [place] [id number] Sep, [facility] [address] [id number] [place] [id number] Sep, [facility] [address] [id number] [place], [place] [id number] Sep, Hospital discharge follow-up Z09 ; Aller gic rhinitis, unspecified seasonality, unspecified trigger J30.9 and Shortness of breath R06.02 [facility] [address] [id number] [place] [id number] Sep, Recurrent major depressive disorder, in partial remission F33.41 [facility] [address] [id number] [place], [place] [id number] 15 Aug, 2017 Irritable mood R45.4 [place] [address] [facility] [id number] [address] [place] [phone] Aug, [place] [id number] [place] [address] [id number] Jul, Benign essential hypertension I10 ; Robert a R60.9 and Impacted cerumen of left ear H61.22 [place] [address] [facility] [id number] [address] [place] [phone] 14 Jul, 2017 Major depression F32.9 ; Rec urrent major depressive disorder, in partial remission F33.41 and Anxiety F41.9 [place] [address] [facility] [id number] [address] [place] [phone] Jun, Major depression F32.9 ; Rec urrent major depressive disorder, in partial remission F33.41 and Anxiety F41.[address] [place] [id number] [place] [address] [id number] Jun, Major depression F32.9 ; Morbid obesity E66.01 ; Irritable mood R45.4 ; Hand weakness R29.898 and Vitamin D deficiency E55.[address] [place] [id number] [place] [address] [id number] Jun, [place] [id number] [place] [address] [id number] May, Major depression F32.9 [place] [address] [facility] [id number] [address] [place] [phone] May, Major depression F32.[address] [place] [address] [id number] [place], [place] [id number] May, BMI 50.0-59.9, adult Z68.43 ; Major depr ession F32.9 ; Anxiety F41.9 ; Hypertrophic toenail L60.2 and Pain of left great toe M79.[address] [place] [id number] [place] [address] [phone] May, Recurrent major depressive disorder, in partial remission F33.41 [facility] [address] [facility] [id number] [address] [place] [phone] Apr, [facility] [address] [id number] [place] [id number] Apr, [facility] [address] [facility] [id number] [address] [place] [phone] Apr, Major depression F32.9 [facility] [address] [id number] [place] [address] [id number] Apr, Severe episode of recurrent major depres sive disorder, without psychotic features F33.2 ; Anxiety F41.9 and Insomnia G47.00 [facility] [address] [id number] [place] [id number] Apr, [facility] [address] [facility] [id number] [address] [place] [phone] Apr, [facility] [address] [id number] [place], [place] [id number] Apr, [facility] [address] [id number] [place] [id number] Mar, [facility] [address] [id number] [place], [place] [id number] Mar, Allergic conjunctivitis of both eyes H10 .13 [facility] [address] [facility] [id number] [address] [place] [phone] Mar, Major depression F32.9 [facility] [address] [id number] [place], [place] [id number] Mar, Metabolic syndrome E88.81 ; History of g astric bypass Z98.890 ; Benign essential hypertension I10 and Allergic conjunctivitis of both eyes H10.13 [facility] [address] [facility] [id number] [address] [place] [phone] Mar, Major depression F32.[address] [facility] [address] [id number] [place] [id number] Feb, [facility] [address] [facility] [id number] [address] [place] [phone] Feb, Major depression F32.[id number] [place] [address] [id number] Feb, Subacute maxillary sinusitis J01.00 and Bronchitis J40 [place] [address] [facility] [id number] [address] [place] [phone] Feb, Major depressive disorder, r ecurrent, moderate F33.1 [facility] [address] [facility] [address] [id number] [place] [address] [id number] Jan, [facility] [id number] [place] [address] [id number] Jan, Acute non-recurrent maxillary sinusitis J01.00 and Skin tag L91.8 [facility] [address] [id number] [place], [place] [id number] Jan, Cough R05 and Sinus congestion R09.81 [facility] [address] [id number] [place] [address] [id number] Jan, [facility] [address] [id number] [place] [address] [id number] Jan, Benign essential hypertension I10 ; Hist ory of gastric bypass Z98.890 and Nausea and vomiting in adult R11.2 [facility] [address] [facility] [id number] [address] [place] [phone] Jan, Major depressive disorder, r ecurrent, moderate F33.1 [place] [address] [facility] [id number] [address] [place] [phone] Dec, Insomnia G47.00 ; Recurrent major depressive disorder, in partial remission F33.41 and Morbid obesity E66.[address] [id number] [place] [address] [id number] Dec, [address] [id number] [place], [place] [id number] Dec, Chronic bacterial conjunctivitis of left eye H10.[address] [id number] [place], [place] [id number] Nov, [address] [id number] [place], [place] [id number] Nov, Dental examination Z01.[address] [id number] [place], [place] [id number] Nov, Benign essential hypertension I10 ; Hist ory of gastric bypass Z98.890 and Nausea and vomiting in adult R11.2 [place] [id number] [place] [phone] 13 Nov, 2016 Major depressive disorder, r ecurrent, moderate F33.1 ; Generalized anxiety disorder F41.1 and Insomnia due to other mental disorder F51.05 [place] [address] [place] [id number] [address] [place] [phone] Nov, Recurrent major depressive d isorder, in partial remission F33.41 ; Insomnia G47.00 and Morbid obesity E66.01 [facility] [id number] [place] [id number] October, Abscess of left arm L02.414 [place] [id number] [place] [phone] October, Morbid obesity E66.01 ; Lida r depression F32.9 and Recurrent major depressive disorder, in partial remission F33.41 [address] [id number] [place] [id number] Sep, Benign essential hypertension I10 ; Morb id obesity E66.01 ; S/P gastric bypass Z98.84 ; Abscess L02.91 and Chronic bacterial conjunctivitis of left eye H10.[address] [id number] [place], [place] [id number] Sep, Dental examination Z01.20 [place] [address] [place] [id number] [address] [place] [phone] Sep, Morbid obesity E66.01 ; Lida r depression F32.9 and Recurrent major depressive disorder, in partial remission F33.41 [place] [address] [facility] [id number] [address] [place] [phone] Jul, [place] [address] [place] [id number] [address] [place] [phone] Jul, Major depressive disorder, r ecurrent, moderate F33.1 [place] [address] [place] [id number] [address] [place] [phone] Jul, Major depressive disorder, r ecurrent, moderate F33.1 and Generalized anxiety disorder F41.[address] [place] [id number] [place] [address] [id number] Jul, Cough R05 [place] [address] [place] [id number] [address] [place] [phone] Jul, Morbid obesity E66.01 ; Lida r depression F32.9 and Recurrent major depressive disorder, in partial remission F33.[address] [place] [id number] [place] [address] [id number] Jul, [place] [address] [id number] [place] [address] [id number] Jul, [place] [address] [id number] [place] [address] [id number] Jul, Gastroenteritis K52.9 and Cough R05 [facility] [id number] [place] [address] [id number] Jun, Acute bacterial conjunctivitis of left e ye H10.32 [place] [address] [facility] [id number] [address] [place] [phone] Jun, [place] [address] [facility] [id number] [address] [place] [phone] Jun, Recurrent major depressive d isorder, in partial remission F33.41 [facility] [address] [facility] [id number] [address] [place] [phone] 28 May, 2016 Major depression F32.9 and M orbid obesity E66.01 [facility] [address] [facility] [id number] [address] [place] [phone] May, [facility] [id number] [place] [address] [id number] May, Thrush B37.0 [place] [address] [facility] [id number] [address] [place] [phone] Apr, Major depressive disorder, r ecurrent, moderate F33.1 [place] [address] [facility] [id number] [address] [place] [phone] Apr, Insomnia G47.00 ; Major depr ession F32.9 and Recurrent major depressive disorder, in partial remission F33.41 [place] [address] [facility] [id number] [address] [place] [phone] Apr, [facility] [address] [facility] [id number] [address] [place] [phone] 02 Apr, 2016 Major depression F32.9 and R ecurrent major depressive disorder, in partial remission F33.[address] [place] [address] [id number] [place] [id number] Mar, Benign essential hypertension I10 ; Morb id obesity E66.01 ; Impacted cerumen of both ears H61.23 ; Laceration of finger of right hand, initial encounter S61.219A and Encounter for immunization Z23 [facility] [address] [facility] [id number] [address] [place] [phone] Mar, [place] [address] [facility] [id number] [address] [place] [phone] Mar, [place] [address] [facility] [id number] [address] [place] [phone] Mar, [facility] [address] [id number] [place] [id number] Feb, Nausea R11.0 ; Blood in the stool K92.1 and Benign essential hypertension I10 [facility] [address] [facility] [id number] [address] [place] [phone] Feb, Major depression F32.9 and R ecurrent major depressive disorder, in partial remission F33.41 [facility] [address] [id number] [place], [place] [id number] Feb, [facility] [address] [address] [id number] [place], [place] [id number] Feb, Recurrent major depressive disorder, in partial remission F33.41 [facility] [address] [id number] [place], [place] [id number] Jan, [facility] [address] [id number] [place], [place] [id number] Jan, Benign essential hypertension I10 ; Robert a R60.9 and Hyperlipidemia, unspecified hyperlipidemia type E78.[address] [facility] [address] [id number] [place], [place] [id number] Jan, Recurrent major depressive disorder, in partial remission F33.41 [facility] [address] [facility] [id number] [facility] [id number] Jan, [facility] [address] [id number] [place], [place] [id number] Jan, [facility] [address] [id number] [place], [place] [id number] Jan, [facility] [address] [facility] [id number] [address] [place] [phone] Jan, [facility] [address] [facility] [id number] [address] [place] [phone] Dec, [facility] [address] [facility] [id number] [address] [place] [phone] Nov, [facility] [address] [facility] [id number] [address] [place] [phone] Nov, Major depression F32.9 [facility] [address] [facility] [id number] [address] [place] [phone] Nov, [facility] [address] [facility] [id number] [address] [place] [phone] Nov, [facility] [address] [facility] [id number] [address] [place] [phone] Nov, Major depressive disorder, r ecurrent episode, mild F33.0 and Anxiety F41.9 [facility] [id number] [place] [address] [id number] Nov, [place] [address] [id number] [place] [address] [id number] October, Left elbow pain M25.522 and Other season al allergic rhinitis J30.2 [facility] [address] [facility] [address] [id number] [place] [address] [id number] October, [place] [address] [facility] [id number] [address] [place] [phone] October, Major depressive disorder, r ecurrent, moderate F33.1 [place] [address] [facility] [id number] [address] [place] [phone] October, Major depression F32.9 [place] [address] [facility] [id number] [address] [place] [phone] Sep, [place] or callus L84 and Onych omycosis B35.1 [facility] [address] [facility] [id number] [address] [place] [phone] Sep, Major depressive disorder, r ecurrent, moderate F33.1 [facility] [address] [facility] [id number] [address] [place] [phone] Sep, Major depression F32.9 [facility] [address] [facility] [id number] [address] [place] [phone] Sep, Moderate episode of recurren t major depressive disorder F33.[address] [facility] [address] [id number] [place], [place] [id number] Sep, Muscle strain T14.8 [facility] [address] [facility] [id number] [address] [place] [phone] Aug, Major depression F32.9 [facility] [address] [facility] [id number] [address] [place] [phone] Aug, Major depression F32.9 [facility] [address] [facility] [id number] [address] [place] [phone] Jul, Morbid obesity E66.01 and Ma cora depression F32.9 [facility] [address] [facility] [id number] [address] [place] [phone] Jul, Depression, major, recurrent , moderate F33.1 [facility] [address] [facility] [address] [id number] [place], [place] [id number] Jul, [facility] [address] [facility] [id number] [address] [place] [phone] Jul, [facility] [address] [facility] [id number] [address] [place] [phone] Jul, Major depression F32.9 and M orbid obesity E66.01 [facility] [address] [place] [address] [id number] [place] [address] [id number] Jul, Type II diabetes mellitus E11.9 ; Callus of foot L84 ; Benign essential hypertension I10 and Renal insufficiency N28.9 [facility] [address] [facility] [id number] [address] [place] [phone] Jul, Depression, major, recurrent , moderate F33.1 [facility] [address] [facility] [id number] [address] [place] [phone] Jul, Major depression F32.9 [facility] [address] [facility] [id number] [address] [place] [phone] Jul, [place] [address] [facility] [id number] [address] [place] [phone] Jun, Major depression F32.9 [place] [address] [place] [id number] [address] [place] [phone] Jun, Major depressive disorder, r ecurrent, moderate F33.1 [place] [address] [place] [id number] [address] [place] [phone] Jun, [place] [address] [place] [id number] [place] [phone] Jun, Major depressive disorder, r ecurrent, moderate F33.1 and Major depression F32.[address] [place] [id number] [place] [address] [id number] Jun, Type II diabetes mellitus E11.9 [place] [address] [place] [id number] [address] [place] [phone] Jun, Depression, major, recurrent , moderate F33.1 [place] [address] [place] [id number] [address] [place] [phone] May, Major depressive disorder, r ecurrent, moderate F33.1 [place] [address] [place] [id number] [address] [place] [phone] May, [place] [address] [id number] [place] [id number] May, Edema R60.9 [place] [address] [place] [id number] [address] [place] [address] May, Insomnia G47.00 and Major de pression F32.[address] [facility] [address] [id number] [place], [place] [id number] 15 May, 2015 Morbid obesity E66.01 ; Edema R60.9 ; Sh ortness of breath R06.02 ; Benign essential hypertension I10 and Renal insufficiency N28.[address] [place] [address] [id number] [place] [id number] May, Hyperlipemia 272.4 and Renal insufficien cy N28.9 [facility] [address] [id number] [address] [place] [phone] Apr, Major depression F32.9 [facility] [address] [id number] [address] [place] [phone] Apr, [facility] [address] [facility] [id number] [address] [place] [id number] Apr, Major depressive disorder, r ecurrent, moderate F33.[address] [facility] [address] [id number] [id number] Apr, Type II diabetes mellitus E11.9 ; Benign essential hypertension I10 ; Edema R60.9 and Renal insufficiency N28.9 [place] [address] [address] [facility] [id number] [address] [place] [id number] Mar, Major depressive disorder, r ecurrent, moderate F33.1 [place] [address] [address] [facility] [id number] [address] [place] [phone] Mar, [place] [address] [id number] [address] [place] [phone] Mar, Major depression F32.[address] [facility] [id number] [place] [id number] Mar, Morbid obesity E66.01 ; Benign essential hypertension I10 and Type II diabetes mellitus E11.9 [place] [address] [id number] [address] [place] [phone] Feb, Major depressive disorder, r ecurrent, moderate F33.1 [place] [address] [address] [facility] [id number] [address] [place] [id number] Feb, Major depressive disorder, r ecurrent episode, in partial or unspecified remission 296.35 ; Anxiety state, unspecified 300.00 and Morbid obesity 278.01 [place] [address] [address] [facility] [id number] [address] [place] [phone] Feb, [facility] [address] [id number] [id number] 16 Feb, 2015 Vomiting 787.03 and Viral syndrome 079.9 9 [facility] [address] [facility] [id number] [address] [place] [id number] 15 Feb, 2015 Major depression, recurrent 296.30 ; Generalized anxiety disorder 300.02 and No condition on Theodosia II V71.[address] [id number] [place] [id number] Feb, Skin tag 701.9 [facility] [address] [facility] [id number] [address] [place] [phone] Feb, [facility] [address] [place] [id number] [address] [place] [phone] Jan, Depression, major, recurrent , moderate 296.[address] [id number] [place] [id number] Jan, Nausea and vomiting 787.01 ; Rib pain on right side 786.50 and Fall on or from sidewalk curb E880.1 [facility] [address] [facility] [id number] [address] [place] [address] Jan, [facility] [address] [facility] [id number] [address] [place] [address] Jan, Major depressive disorder, r ecurrent episode, in partial or unspecified remission 296.35 and Anxiety state, unspecified 300.[address] [id number] [id number] Jan, [facility] [address] [facility] [id number] [address] [place] [address] Jan, Depression, major, recurrent , moderate 296.32 [facility] [address] [facility] [id number] [address] [place] [address] Jan, Major depression, recurrent 296.30 ; No condition on Theodosia II V71.09 and No condition on axis III V71.[address] [id number] [id number] Jan, Drug-induced nausea and vomiting 787.01 [place] [id number] [address] [place] [address] Jan, Depression, major, recurrent , moderate 296.32 [place] [id number] [address] [place] [address] Dec, Depression, major, recurrent , moderate 296.32 [place] [id number] [facility] [id number] [id number] Dec, Morbid obesity 278.01 ; Metabolic syndro me 277.7 ; Hyperlipemia 272.4 ; Benign essential hypertension 401.1 ; Dietary counseling V65.3 ; Exercise counseling V65.41 and Inflamed skin tag 701.9 [place] [id number] [address] [place] [address] Dec, Depression, major, recurrent , moderate 296.[address] [address] Dec, [address] [address] Dec, Major depression, recurrent 296.30 ; Anxiety, generalized 300.02 and No condition on Theodosia II V71.09 [place] [id number] [address] [place] [address] Dec, Depression, major, recurrent , moderate 296.32 [place] [id number] [address] [place] [address] Dec, Major depressive disorder, r ecurrent episode, moderate 296.[address] [address] Dec, Depression, major, recurrent , moderate 296.32 [place] [id number] [address] [place] [address] Dec, Depression, major, recurrent , moderate 296.32 [place] [address] [address] Dec, Depression, major, recurrent , moderate 296.32 [facility] [address] [address] Dec, Depression, major, recurrent , moderate 296.32 [facility] [address] [address] Nov, Depression, major, recurrent , moderate 296.32 [facility] [address] [address] Nov, Major depression 296.20 ; So cial phobia 300.23 and No condition on Theodosia II V71.09 [place] [address] [address] Nov, Depression, major, recurrent , moderate 296.32 [place] [address] [address] Nov, Major depressive disorder, r ecurrent episode, moderate 296.32 and Generalized anxiety disorder 300.02 [place] [address] [address] Nov, Depression, major, recurrent , moderate 296.32 [place] [address] [address] Nov, Depression, major, recurrent , moderate 296.32 [facility] [address] [address] October, Generalized anxiety disorder 300.02 ; No condition on Theodosia II V71.09 and Major depressive disorder, recurrent 296.30 [place] [address] [address] 14 Sep, 2014 [place] [address] [address] Sep, [facility] [address] [address] 24 Aug, 2014 [facility] [address] [id number] [address] [place] [address], [place] [address] 24 Aug, 2014 [facility] [address] [id number] [address] [place] [address], [place] [address] 23 Aug, 2014 [facility] [address] [id number] [address] [place] [address], [place] [address] 23 Aug, 2014 [facility] [address] [id number] [address] [place] [address], [place] [address] 20 Aug, 2014 [facility] [address] [id number] [address] [place] [address], [place] [address] 20 Aug, 2014 [facility] [address] [id number] [address] [place] [address], [place] [address] 20 Aug, 2014 [facility] [address] [id number] [address] [place] [address], [place] [address] 20 Aug, 2014 [facility] [address] [id number] [address] [place] [address], [place] [address] 13 Aug, 2014 [facility] [address] [id number] [address] [place] [address], [place] [address] 13 Aug, 2014 [facility] [address] [id number] [address] [place] [address], [place] [address] 13 Aug, 2014 [facility] [address] [id number] [address] [place] [address], [place] [address] 13 Aug, 2014 [facility] [address] [id number] [address] [place] [address], [place] [address] 12 Aug, 2014 [facility] [address] [id number] [address] [place] [address], [place] [address] 12 Aug, 2014 [facility] [address] [id number] [address] [place] [address], [place] [address] 10 Aug, 2014 [facility] [address] [id number] [address] [place] [address], [place] [address] 10 Aug, 2014 [facility] [place] [address] [id number] [address] [place] [address], [place] [address] Aug, [facility] [address] [id number] [address] [place] [address], [place] [address] Aug, [facility] [address] [id number] [address] [place] [address], [place] [address] Jul, [facility] [address] [id number] [address] [place] [address], [place] [address] Jul, 2014 [facility] [address] [id number] [address] [place] [address], [place] [address] Jul, [facility] [address] [id number] [address] [place] [address], [place] [address] Jul, [facility] [address] [id number] [address] [place] [address], [place] [address] Jul, [facility] [address] [id number] [address] [place] [address], [place] [address] Jul, [facility] [address] [id number] [address] [place] [address], [place] [address] Jun, [facility] [address] [id number] [address] [place] [address], [place] [address] Jun, [facility] [address] [id number] [address] [place] [address], [place] [address] Jun, [facility] [address] [id number] [address] [place] [address], [place] [address] Jun, [facility] [address] [id number] [address] [place] [address], [place] [address] Jun, [facility] [address] [id number] [address] [place] [address], [place] [address] Jun, [facility] [address] [id number] [address] [place] [address], [place] [address] Jun, [facility] [address] [id number] [address] [place] [address], [place] [address] Jun, [facility] [address] [id number] [address] [place] [address], [place] [address] Jun, [facility] [address] [id number] [address] [place] [address], [place] [address] Jun, [facility] [address] [id number] [address] [place] [address], [place] [address] Jun, [facility] [address] [id number] [address] [place] [address], [place] [address] Jun, [facility] [place] [address] [id number] [place] [id number] Jun, [facility] [address] [id number] [address] [place] [address], [place] [address] Jun, [facility] [address] [id number] [address] [place] [address], [place] [address] Jun, [facility] [address] [id number] [address] [place] [address], [place] [address] Jun, [facility] [address] [id number] [address] [place] [address], [place] [address] May, [facility] [address] [id number] [address] [place] [address], [place] [address] May, [facility] [address] [id number] [address] [place] [address], [place] [address] May, [facility] [address] [id number] [address] [place] [address], [place] [address] May, [facility] [place] [address] [id number] [address] [place] [address], [place] [address] Apr, [facility] [place] [facility] [address] [id number] [address] [place] [address], [place] [address] Apr, [facility] [place] [facility] [address] [id number] [address] [place] [address], [place] [address] Apr, [facility] [address] [id number] [address] [place] [address] [place] [address] Apr, [facility] [place] [facility] [address] [id number] [address] [place] [address], [place] [address] Apr, [facility] [place] [address] [id number] [address] [place] [address], [place] [address] Apr, [facility] [address] [id number] [address] [place] [address], [place] [address] Apr, [facility] [address] [id number] [address] [place] [address], [place] [address] Apr, [facility] [address] [id number] [address] [place] [address], [place] [address] Apr, [facility] [place] [address] [id number] [address] [place] [address], [place] [address] Apr, [facility] [place] [facility] [address] [id number] [address] [place] [address], [place] [address] Apr, [facility] [place] [address] [id number] [address] [place] [address], [place] [address] Apr, [facility] [place] [facility] [address] [id number] [address] [place] [address], [place] [address] Apr, [facility] [place] [facility] [address] [id number] [address] [place] [address], [place] [address] Apr, [facility] [place] [address] [id number] [address] [place] [address], [place] [address] Apr, [facility] [place] [address] [id number] [address] [place] [address] Apr, [facility] [address] [id number] [address] [place] [address] Apr, [facility] [place] [facility] [address] [id number] [address] [place] [address], [place] [address] Apr, [facility] [place] [facility] [address] [id number] [address] [place] [address] Apr, [facility] [place] [facility] [address] [id number] [address] [place] [address], [place] [address] Apr, [facility] [place] [facility] [address] [id number] [address] [place] [address], [place] [address] Mar, [facility] [place] [facility] [address] [id number] [address] [place] [address], [place] [address] Mar, [facility] [place] [facility] [address] [id number] [address] [place] [address], [place] [address] Mar, [facility] [place] [facility] [address] [id number] [address] [place] [address], [place] [address] Mar, [facility] [place] [facility] [address] [id number] [address] [place] [address], [place] [address] Mar, [facility] [place] [facility] [address] [id number] [address] [place] [address], [place] [address] Mar, [facility] [place] [facility] [address] [id number] [address] [place] [address], [place] [address] Mar, [facility] [place] [facility] [address] [id number] [address] [place] [address], [place] [address] Mar, [facility] [place] [facility] [address] [id number] [address] [place] [address], [place] [address] Mar, [facility] [place] [facility] [address] [id number] [address] [place] [address], [place] [address] Mar, [facility] [place] [facility] [address] [id number] [address] [place] [address], [place] [address] Feb, [facility] [place] [facility] [address] [id number] [address] [place] [address], [place] [address] Feb, [facility] [place] [facility] [address] [id number] [address] [place] [address], [place] [address] Feb, [facility] [address] [id number] [address] [place] [address], [place] [address] Feb, [facility] [address] [id number] [address] [place] [address], [place] [address] Jan, [facility] [address] [id number] [facility] [place] [address] Jan, [facility] [place] [facility] [address] [id number] [address] [place] [address], [place] [address] Jan, [facility] [address] [id number] [facility] [place] [address] Jan, [facility] [place] [facility] [address] [id number] [address] [place] [address], [place] [address] Jan, [facility] [address] [id number] [facility] [place] [address] Jan, [facility] [place] [address] [id number] [address] [place] [address], [place] [address] Dec, [facility] [address] [id number] [address] [place] [address], [place] [address] Dec, [facility] [place] [facility] [address] [id number] [address] [place] [address], [place] [address] Nov, [facility] [place] [facility] [address] [id number] [address] [place] [address], [place] [address] Nov, [facility] [address] [id number] [address] [place] [address], [place] [address] Nov, [facility] [place] [facility] [address] [id number] [address] [place] [address], [place] [address] Nov, [facility] [address] [id number] [address] [place] [address], [place] [address] Nov, [facility] [address] [id number] [address] [place] [address], [place] [address] Nov, [facility] [place] [facility] [address] [id number] [address] [place] [address], [place] [address] Sep, [facility] [place] [facility] [address] [id number] [address] [place] [address], [place] [address] Sep, [facility] [place] [facility] [address] [id number] [address] [address] Sep, [facility] [address] [id number] [address] [place] [address], [place] [address] Sep, [facility] [address] [id number] [address] [place] [address], [place] [address] Aug, [facility] [address] [id number] [address] [place] [address], [place] [address] Aug, [facility] [address] [id number] [address] [place] [address], [place] [address] Jul, [facility] [address] [id number] [address] [place] [address], [place] [address] Jul, [facility] [address] [id number] [address] [place] [address], [place] [address] Jun, [facility] [address] [id number] [address] [place] [address], [place] [address] Jun, [facility] [address] [id number] [address] [place] [address], [place] [address] Jun, [facility] [address] [id number] [address] [place] [address], [place] [address] Jun, [facility] [address] [id number] [address] [place] [address], [place] [address] May, [facility] [address] [id number] [address] [place] [address], [place] [address] 24 May, 2013 [facility] [address] [id number] [address] [place] [address], [place] [address] May, [facility] [address] [id number] [address] [place] [address], [place] [address] May, [facility] [address] [id number] [address] [place] [address], [place] [address] May, [facility] [address] [id number] [address] [place] [address], [place] [address] May, [facility] [address] [id number] [address] [place] [address], [place] [address] Apr, [facility] [address] [id number] [address] [place] [address], [place] [address] Apr, [facility] [address] [id number] [address] [place] [address], [place] [address] Apr, [facility] [address] [id number] [address] [place] [address], [place] [address] Apr, [facility] [address] [id number] [address] [place] [address], [place] [address] Mar, [facility] [address] [id number] [address] [place] [address], [place] [address] Mar, [facility] [address] [id number] [address] [place] [address], [place] [address] Mar, [facility] [address] [id number] [address] [place] [address], [place] [address] Mar, [facility] [address] [id number] [address] [place] [address], [place] [address] Feb, [facility] [address] [id number] [place] [id number] Jan, [facility] [address] [id number] [address] [place] [address], [place] [address] Jan, [facility] [address] [id number] [address] [place] [address] Dec, [facility] [address] [id number] [address] [place] [address], [place] [address] Dec, [facility] [address] [id number] [address] [place] [address], [place] [address] Dec, [facility] [address] [id number] [place] [id number] Dec, [facility] [address] [id number] [address] [place] [address], [place] [address] 17 Nov, 2012 [facility] [address] [id number] [address] [place] [id number] 14 Nov, 2012 [facility] [address] [id number] [address] [place] [address] Nov, [facility] [address] [id number] [address] [place] [address] Nov, [facility] [address] [id number] [address] [place] [id number] Nov, [facility] [address] [id number] [address] [place] [address] October, [facility] [address] [id number] [address] [place] [id number] October, [facility] [address] [id number] [address] [place] [address] Aug, [facility] [address] [id number] [address] [place] [id number] Nov, IMMUNIZATIONS No Known Immunizations SOCIAL HISTORY Never Assessed REASON FOR VISIT [facility] Updated---Iveth PLAN OF CARE VITAL SIGNS MEDICATIONS Medication Instructions Dosage Frequency Start Date End Date Duration S chandni BusPIRone HCl 10 mg Orally 3 times a day 1 tablet 8h 13 Apr, 2017 Active Ketoconazole 2 % Externally Once a day 1 application to affected area 24 h Active Patanol 0.1 % Ophthalmic Twice a day 1 drop into affected eye 12h Mar, Active Lisinopril 40 mg 1 tablet Once a day Orally Active Viibryd 40 mg Orally Once a day 1 tablet with food 24h 11 May, 2017 30 days Active Centrum - Active Cetirizine HCl 10 mg Orally Once a day 1 tablet 24h Active Zofran 8 MG Orally Once a day 1 tablet 24h A ctive Trintellix 20 MG Orally Once a day in morning 1 tablet Not-Taking Ibuprofen 200 mg Orally PRN 1 tablet with food or milk as needed Active Flonase 50 mcg/act nasally once per day 1 spray (50 mcg) in each nostril by intranasal route 2 times per day Nov, Active Vitamin D-3 1000 UNIT Orally Once a day 2 capsule 24h Active Atenolol 100 mg 1 tablet Once a day Orally Active Trazodone HCl 50 mg Orally Once a day- bedtime 1 tablet Nov, Active Omeprazole 40 MG Orally Once a day 1 tablet 24h 0 da ys Active Montelukast Sodium 10 MG TAKE ONE TABLET BY MOUTH DAILY Active Flovent HFA 110 mcg/actuation inhalation once [...] 03/2016 Hospitalization History gastric sleeve Hospitalization History [facility] Trouble with left shoulder blade 08/2017
--- OUTSIDE RECORDS SUMMARY | 2019-11-29 09:41 | XMS REPORT ---
Author Author Curt HEALY [facility] eClinicalWorks Address Unknown Phone Unavailable Care Team Providers Care Filter Press Operator Name Role Phone SUNIL HEALY Unavailable Allergies, Adverse Reactions, Alerts Substance Reaction Event Type Wheat throat swells Non Drug Allergy Egg White throat swells Non Drug Allergy Cows Milk throat swells Non Drug Allergy Peanuts throat swells Non Drug Allergy Tenerius [place] throat swells Non Drug Allergy [place] throat swells Non Drug Allergy Ragweed throat swells Non Drug Allergy Problems Problem Type Condition ICD-9 Code Onset Dates Condition Statu s Problem Anxiety state, unspecified 300.00 A ctive Problem Major depressive disorder, r ecurrent episode, in partial or unspecified remission 296.35 Active Problem Unspecified sleep apnea 780.57 Acti ve Assessment Viral syndrome 079.99 Active Assessment Vomiting 787.03 Active Problem Hyperlipemia 272.4 Active Problem Benign essential hypertension 401.1 Active Problem Metabolic syndrome 277.7 Active Problem Chronic rhinitis 472.0 Active Problem Morbid obesity 278.01 Active Problem Edema 782.3 Active Problem Insomnia, unspecified 780.52 Active Medications Medication Code System Code Instructions Start Date End Date Status Dosage Tricor [facility] 30216062117 145 MG 1 tablet by Oral route 1 time per day [facility] Atenolol [facility] [address]-51 100 MG Orally Once a day August 21, 2014 1 tablet by Oral route 1 time per day Victoza [facility] [address]-84 18 MG/3ML Subcutaneous Once a day 0.2 ml Omeprazole [facility] [address]-28 20 MG Orally Once a day 1 capsule Singulair [facility] 03082138098 10 MG 1 Tablet b y Oral route 1 time per day take 1 tablet by mouth 1 time per day Lisinopril [facility] [address]-57 40 MG Orally Once a day August 21, 2014 1 Tablet by Oral route 1 time per day Meloxicam [facility] 65220390867 15 MG 1 take 1 t ablet by mouth 1 time per day Flonase [facility] [address]-24 50 mcg/actuation November 29, 2013 inhale 1 spray (50 mcg) in each nostril by intranasal route 2 times per day Saxenda [facility] [address]-38 18 MG/3ML Subcutaneous Once a day 0.2 ml Furosemide [facility] 37877402643 20 MG TAKE 1 TA BLET BY MOUTH ONCE DAILY NEEDED ONLY WITH EXCESSIVE SWELLING MetFORMIN HCl ER (MOD) [facility] [address]-82 1000 MG Orally tw ice a day January 08, 2015 1 tablet with evenin g meal Brintellix [facility] [address]-34 20 MG Orally Once a day for one w [place] ira November 18, 2014 1 tablet Flovent HFA [facility] [address]-19 110 mcg/actuation October 23, 2012 1-3 Puffs 1 time per day Abilify [facility] [address]-82 5 MG Orally Once a day 1 tablet Procedures Procedure Coding System Code Date Office Visit, Est Pt., Level 3 CPT-4 85392 S t 2014 Vital Signs Date/Time: Feb 25, 2015 Temperature 98.2 F Weight 450.6 lbs Height 72 in BMI 61.11 Index Blood Pressure Diastolic 78 mmHg Blood Pressure Systolic 140 mmHg Cardiac Monitoring Heart Rate 85 bpm Results No Known Results Summary Purpose eClinicalWorks Submission
--- OUTSIDE RECORDS SUMMARY | 2019-11-29 09:41 | XMS REPORT ---
Author Author Curt DIAZ [facility] Address [address] [place] [address] Care Team Providers Care Dermatological Surgeon Name Role Phone CHRIS DIAZ Unavailable PROBLEMS Type Condition ICD9-CM Code [id number] Code Onset Dates Condition S tatus SNOMED Code Problem Morbid obesity E66.01 Active 39923 6002 Problem Benign essential hypertension I10 Active 9088604 Problem Type II diabetes mellitus E11.9 Acti ve 45853318 Problem Hyperlipemia E78.5 Active 5763766 4 Problem Major depression F32.9 Active 370 470154 Problem Insomnia G47.00 Active 519021720 Problem Metabolic syndrome E88.81 Active 2 01949863 Problem Acute bacterial conjunctivitis of left eye H10.32 Active 817195997 Problem Edema R60.9 Active 055129846 Problem Renal insufficiency N28.9 Active 426200221 Problem Recurrent major depressive disorder, in partial remission F33.41 Active 57495498 Problem Callus of foot L84 Active 63022 1005 ALLERGIES Substance Reaction Event Type Date Status Egg White throat swells Non Drug Allergy October, Active Cows Milk throat swells Non Drug Allergy October, Active Wheat throat swells Non Drug Allergy October, Active Peanuts throat swells Non Drug Allergy October, Active Tenerius [place] throat swells Non Drug Allergy October, Active [place] throat swells Non Drug Allergy October, Active Ragweed throat swells Non Drug Allergy October, Active SOCIAL HISTORY Never Assessed PLAN OF CARE Activity Details Follow Up prn Reason: VITAL SIGNS Height 71.5 in 2016-11-03 Weight 400.2 lbs 2016-11-03 Temperature 98.2 degrees Fahrenheit 2016-11-03 Heart Rate 70 bpm 2016-11-03 Respiratory Rate 20 2016-11-03 BMI 55.03 kg/m2 2016-11-03 Blood pressure systolic 120 mmHg 2016-11-03 Blood pressure diastolic 84 mmHg 2016-11-03 MEDICATIONS Medication Instructions Dosage Frequency Start Date End Date Duration S tatus Atenolol 100 mg Orally Once a day 1 tablet 24h Active Flonase 50 mcg/actuation inhale 1 spray (50 mcg) in each nostril by intranasal route 2 times per day Nov, Active Bactrim DS 800-160 mg Orally Twice a day 1 tablet 12h October, 017 4 Nov, 2016 10 day(s) Active Silvadene 1 % Externally Once a day 1 application to affected area 24h October, 1 Nov, 2016 07 days Active Montelukast Sodium 10 MG TAKE ONE TABLET BY MOUTH DAILY 90 Active Omeprazole 40 MG Orally Once a day 1 tablet 24h 0 da ys Active Zofran Active Lisinopril 40 mg Orally Once a day 1 tablet 24h Active Trintellix 20 MG TAKE 1 TABLET BY MOUTH ONCE DAILY 30 Active Flovent HFA 110 mcg/actuation 1-3 Puffs 1 time per day 1 October, Active Cetirizine HCl 10 mg Orally Once a day 1 tablet 24h Active Tessalon Perles 100 mg Orally Three times a day 1 capsule as needed 8h Jul, 07 days Active RESULTS No Results PROCEDURES Procedure Date Ordered Result Body Site I & D SIMPLE ABSCESS 2016-11-03 N/A DRAINAGE OF SKIN ABSCESS November 03, 2016 IMMUNIZATIONS No Known Immunizations MEDICAL (GENERAL) [...]
--- OUTSIDE RECORDS SUMMARY | 2019-11-29 09:41 | XMS REPORT ---
Author Author Curt TRIMBLE [facility] eClinicalWorks Address Unknown Phone Unavailable Care Team Providers Care Inside Horticultural Specialty Grower Name Role Phone [facility] CP Unavailable Allergies No Known Allergies Problems Problem Type Condition Code Onset Dates Condition Statu s Problem Benign essential hypertension I10 Active Problem Type II diabetes mellitus E11.9 Ac tive Problem Morbid obesity E66.01 Active Problem Hyperlipemia E78.5 Active Assessment Major depressive disorder, recurrent, moderate F33.1 Active Problem Insomnia G47.00 Active Problem Major depression F32.9 Active Medications No Known Medications Procedures Procedure Coding System Code Date HEALTH PROMOTION CPT-4 S0280 Apr 07, 2015 Results No Known Results Summary Purpose eClinicalWorks Submission
--- OUTSIDE RECORDS SUMMARY | 2019-11-29 09:41 | XMS REPORT ---
Author Curt Hess [facility] eClinicalWorks Address Unknown Phone Unavailable Care Team Providers Care Stars Coordinator Name Role Phone CHRIS DIAZ CP Unavailable Allergies, Adverse Reactions, Alerts Substance Reaction Event Type Ragweed throat swells Non Drug Allergy Wheat throat swells Non Drug Allergy Egg White throat swells Non Drug Allergy Cows Milk throat swells Non Drug Allergy Peanuts throat swells Non Drug Allergy Tenerius [place] throat swells Non Drug Allergy [place] throat swells Non Drug Allergy Problems Problem Type Condition Code Onset Dates Condition Statu s Assessment Benign essential hypertension I10 Active Problem Major depression F32.9 Active Problem Hyperlipemia E78.5 Active Assessment Hyperlipidemia, unspecified hyperlipidemia type E78.5 Active Assessment Edema R60.9 Active Problem Edema R60.9 Active Problem Renal insufficiency N28.9 Active Problem Callus of foot L84 Active Problem Benign essential hypertension I10 Active Problem Insomnia G47.00 Active Problem Type II diabetes mellitus E11.9 Ac tive Problem Morbid obesity E66.01 Active Medications Medication Code System Code Instructions Start Date End Date Status Dosage MetFORMIN HCl ER (MOD) [facility] [address]-28 1000 MG O rally twice a day (FOLLOW UP IN JAN) January 08, 2015 1 tablet with ev ening meal Furosemide [facility] [address]-30 20 mg Orally once daily for swell ing in the legs TAKE ONE TABLET BY MOUTH ONC E DAILY Cetirizine HCl [facility] [address]-78 10 mg Orally Once a day October 19 6 1 tablet Rexulti [facility] [address]-30 1 MG Orally Once a day Jun 19, 2015 1 tablet Flonase NDC 0 50 mcg/actuation November 29, 2013 inhale 1 spray (50 mcg) in each nostril by intranasal route 2 times per day Meloxicam [facility] 05700865754 7.5 MG Orally Once a day 1 tablet Once a day Orally Trintellix NDC 0 10 mg orally once a day November 19, 2015 2 tablet Atenolol [facility] [address]-96 50 MG Orally Once a day 1 tablet Lisinopril [facility] [address]-43 40 mg 1 Table t by Oral route 1 time per day Once a day Orally Montelukast Sodium [facility] 93500012870 10 MG T MERYL ONE TABLET BY MOUTH DAILY Omeprazole [facility] 50643831419 20 MG 1 Tablet by Oral route 1 time per day Fenofibrate [facility] 62384872105 145 MG TAKE ON E TABLET DAILY. FASTING [facility] IN NOVEMBER Flovent HFA [facility] [address]-62 110 mcg/actuation October 23, 2012 1-3 Puffs 1 time per day Procedures Procedure Coding System Code Date Office Visit, Est Pt., Level 3 CPT-4 41839 A 2015 VENIPUNCT, ROUTINE* CPT-4 91433 Feb 08, 2016 [facility]-4 NOBLL Feb 08, 2016 Vital Signs Date/Time: Feb 08, 2016 Cardiac Monitoring Heart Rate 64 bpm Weight 436.9 lbs Height 71.5 in BMI 60.08 Index Blood Pressure Diastolic 68 mmHg Blood Pressure Systolic 110 mmHg Results No Known Results Summary Purpose eClinicalWorks Submission
--- OUTSIDE RECORDS SUMMARY | 2019-11-29 09:41 | XMS REPORT ---
Author Curt Hess [facility] eClinicalWorks Address Unknown Phone Unavailable Care Team Providers Care Etl Informatica Architect Name Role Phone CHRIS DIAZ CP Unavailable Allergies, Adverse Reactions, Alerts Substance Reaction Event Type Peanuts throat swells Non Drug Allergy Wheat throat swells Non Drug Allergy Egg White throat swells Non Drug Allergy Cows Milk throat swells Non Drug Allergy Tenerius [place] throat swells Non Drug Allergy [place] throat swells Non Drug Allergy Ragweed throat [...] Type II diabetes mellitus E11.9 Ac tive Assessment Laceration of finger of right hand, initial encounter S61.219A Active Assessment Impacted cerumen of both ears H61.23 Active Assessment Morbid obesity E66.01 Active Assessment Encounter for immunization Z23 A ctive Assessment Benign essential hypertension I10 Active Medications Medication Code System Code Instructions Start Date End Date Status Dosage Omeprazole [facility] 23589692794 20 MG 1 Tablet by Oral route 1 time per day Flovent HFA [facility] [address]-82 110 mcg/actuation October 23, 2012 1-3 Puffs 1 time per day Rexulti [facility] [address]-63 1 MG Orally Once a day Jun 19, 2015 1 tablet Atenolol [facility] [address]-33 50 MG Orally Once a day 1 tablet Cetirizine HCl [facility] [address]-72 10 mg Orally Once a day October 19 6 1 tablet Flonase NDC 0 50 mcg/actuation November 29, 2013 inhale 1 spray (50 mcg) in each nostril by intranasal route 2 times per day Meloxicam [facility] [address]-16 15 MG Orally Once a day 1 tablet Once a day Orally Zofran [facility] [address]-36 8 MG Orally Once a day as n eeded for nausea Mar 10, 2016 1 tablet Trintellix [facility] [address]-28 20 MG Orally Once a day Mar 24, 2016 1 tablet Lisinopril [facility] [address]-41 40 mg 1 Table t by Oral route 1 time per day Once a day Orally Montelukast Sodium [facility] 46578110185 10 MG T MERYL ONE TABLET BY MOUTH DAILY Procedures Procedure Coding System Code Date TDAP (BOOSTRIX) CPT-4 30940 Apr 11, 2016 SINGLE IMMUNIZATION ADMIN CPT-4 08127 Mar Office Visit, Est Pt., Level 3 CPT-4 98169 O 2015 EAR IRRIGATION CPT-4 61786 Apr 11, 2016 Vital Signs Date/Time: Apr 11, 2016 Cardiac Monitoring Heart Rate 72 bpm Weight 420.7 lbs Height 71.5 in BMI 57.85 Index Blood Pressure Diastolic 88 mmHg Blood Pressure Systolic 136 mmHg Results Name Result Date Reference Range Unit Abnormali ty Flag CERUMEN REMOVAL Immunizations Vaccine Administration Date TDAP (BOOSTRIX) Apr 11, 2016 Summary Purpose eClinicalWorks Submission
--- OUTSIDE RECORDS SUMMARY | 2019-11-29 09:41 | XMS REPORT ---
Author Author Curt REBOLLAR Organization [facility] Address [address] [place] [address] Care Team Providers Care Staff Home Therapy Rn Name Role Phone QUINTIN REBOLLAR Unavailable PROBLEMS Type Condition ICD9-CM Code [id number] Code Onset Dates Condition S tatus SNOMED Code Problem Morbid obesity E66.01 Active 95924 6002 Problem Benign essential hypertension I10 Active 4146399 Problem Type II diabetes mellitus E11.9 Acti ve 95490692 Problem Hyperlipemia E78.5 Active 2087336 4 Problem Major depression F32.9 Active 370 726679 Problem Insomnia G47.00 Active 860031819 Problem Metabolic syndrome E88.81 Active 2 65777879 Problem Acute bacterial conjunctivitis of left eye H10.32 Active 501684822 Problem Edema R60.9 Active 086696425 Problem Renal insufficiency N28.9 Active 427846378 Problem Recurrent major depressive disorder, in partial remission F33.41 Active 80801108 Problem Callus of foot L84 Active 04040 1005 ALLERGIES No Information SOCIAL HISTORY Never Assessed PLAN OF CARE Activity Details Follow Up 4 Weeks Reason:weight manage ment, depression VITAL SIGNS MEDICATIONS Unknown Medications RESULTS No Results PROCEDURES Procedure Date Ordered Result Body Site Psychotherapy, patient &/family, 30 minutes, established patient October 20, 2016 IMMUNIZATIONS No Known Immunizations MEDICAL (GENERAL) [...]
--- OUTSIDE RECORDS SUMMARY | 2019-11-29 09:41 | XMS REPORT ---
Author Author Curt LEHMAN [facility] eClinicalWorks Address Unknown Phone Unavailable Care Team Providers Care Filling And Stapling Machine Operator Name Role Phone JESUS LEHMAN Unavailable Allergies No Known Allergies Problems Problem [...]
--- OUTSIDE RECORDS SUMMARY | 2019-11-29 09:41 | XMS REPORT ---
Author Curt Hess [facility] eClinicalWorks Address Unknown Phone Unavailable Care Team Providers Care Political Anthropologist Name Role Phone CHRIS DIAZ CP Unavailable [...]
--- OUTSIDE RECORDS SUMMARY | 2019-11-29 09:42 | XMS REPORT ---
Author Author BRIANACurt SALVADOR Organization 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 Name Role Phone ALVIN KIDD Unavailable PROBLEMS Type Condition ICD9-CM Code YOI52-UP Code Onset Dates Condition S tatus SNOMED Code Problem Renal insufficiency N28.9 Active 651640287 Problem Callus of foot L84 Active 49807 1005 Problem Edema R60.9 Active 522080632 Problem Vitamin D deficiency E55.9 Active 62919672 Problem Anxiety F41.9 Active 38879329 Problem Acute bacterial conjunctivitis of left eye H10.32 Active 330019930 Problem Recurrent major depressive disorder, in partial remission F33.41 Active 07837877 Problem Severe episode of recurrent major depressive disorder, without psychotic features F33.2 Active 01673835 Problem Metabolic syndrome E88.81 Active 2 63659800 Problem Hyperlipemia E78.5 Active 2834957 4 Problem Type II diabetes mellitus E11.9 Acti ve 31195636 Problem Insomnia G47.00 Active 664981155 Problem Morbid obesity E66.01 Active 18585 6002 Problem Major depression F32.9 Active 370 832276 Problem Benign essential hypertension I10 Active 7269390 ALLERGIES Substance Reaction Event Type Date Status Ragweed throat swells Non Drug Allergy Feb, Active Egg White throat swells Non Drug Allergy Feb, Active Cows Milk throat swells Non Drug Allergy Feb, Active Wheat throat swells Non Drug Allergy Feb, Active Peanuts throat swells Non Drug Allergy Feb, Active Tenerius [place] throat swells Non Drug Allergy Feb, Active [place] throat swells Non Drug Allergy Feb, Active ENCOUNTERS Encounter Location Date Diagnosis [facility] [address] [facility] [id number] [address] [place] [address] October, [facility] [address] [place] [address] [id number], [place] [id number] Sep, [facility] [address] [id number], [place] [id number] Sep, [facility] [address] [id number], [place] [id number] Sep, [address] [id number], [place] [id number] Sep, Hospital discharge follow-up Z09 ; Aller gic rhinitis, unspecified seasonality, unspecified trigger J30.9 and Shortness of breath R06.[address] [id number], [place] [id number] Sep, Recurrent major depressive disorder, in partial remission F33.[address] [id number], [place] [id number] Aug, Irritable mood R45.4 [place] [address] [address] [place] [address] Aug, [address] [id number], [place] [id number] Jul, Benign essential hypertension I10 ; Robert a R60.9 and Impacted cerumen of left ear H61.22 [place] [address] [address] [place] [address] Jul, Major depression F32.9 ; Rec urrent major depressive disorder, in partial remission F33.41 and Anxiety F41.9 [place] [address] [address] [place] [id number] [address] [place] [address] Jun, Major depression F32.9 ; Rec urrent major depressive disorder, in partial remission F33.41 and Anxiety F41.[address] [id number], [place] [id number] Jun, Major depression F32.9 ; Morbid obesity E66.01 ; Irritable mood R45.4 ; Hand weakness R29.898 and Vitamin D deficiency E55.9 [facility] [address] [id number], [place] [id number] Jun, [facility] [address] [id number], [place] [id number] May, Major depression F32.9 [facility] [address] [facility] [id number] [address] [place] [address] May, Major depression F32.9 [facility] [address] [id number], [place] [id number] May, BMI 50.0-59.9, adult Z68.43 ; Major depr ession F32.9 ; Anxiety F41.9 ; Hypertrophic toenail L60.2 and Pain of left great toe M79.675 [facility] [address] [id number], [place] [id number] May, Recurrent major depressive disorder, in partial remission F33.41 [facility] [address] [place] [id number] [address] [place] [address] Apr, [facility] [address] [id number], [place] [id number] Apr, [facility] [address] [facility] [id number] [address] [place] [address] Apr, Major depression F32.9 [facility] [address] [id number], [place] [id number] Apr, Severe episode of recurrent major depres sive disorder, without psychotic features F33.2 ; Anxiety F41.9 and Insomnia G47.00 [facility] [address] [id number], [place] [id number] Apr, [facility] [address] [facility] [id number] [address] [place] [address] Apr, [facility] [address] [id number], [place] [id number] Apr, [facility] [address] [id number], [place] [id number] Mar, [facility] [address] [id number], [place] [id number] Mar, Allergic conjunctivitis of both eyes H10 .13 [facility] [address] [facility] [id number] [address] [place] [address] Mar, Major depression F32.9 [facility] [id number] [place] [id number] Mar, Metabolic syndrome E88.81 ; History of g astric bypass Z98.890 ; Benign essential hypertension I10 and Allergic conjunctivitis of both eyes H10.13 [facility] [address] [facility] [id number] [address] [place] [address] Mar, Major depression F32.9 [facility] [address] [facility] [address] [id number] [place] [id number] Feb, [facility] [address] [facility] [id number] [address] [place] [address] Feb, Major depression F32.9 [facility] [id number] [place] [address] [id number] Feb, Subacute maxillary sinusitis J01.[address] [facility] [address] [facility] [id number] [address] [place] [address] 06 Feb, 2017 Major depressive disorder, r ecurrent, moderate F33.1 [facility] [address] [id number], [place] [id number] Jan, [facility] [address] [id number], [place] [id number] Jan, Acute non-recurrent maxillary sinusitis J01.00 and Skin tag L91.8 [facility] [address] [id number], [place] [id number] Jan, Cough R05 and Sinus congestion R09.81 [facility] [id number] [place] [address] [id number] Jan, [facility] [address] [id number], [place] [id number] Jan, Benign essential hypertension I10 ; Hist ory of gastric bypass Z98.890 and Nausea and vomiting in adult R11.2 [place] [address] [facility] [id number] [address] [place] [address] 04 Jan, 2017 Major depressive disorder, r ecurrent, moderate F33.1 [place] [address] [address] [facility] [id number] [address] [place] [address] Dec, Insomnia G47.00 ; Recurrent major depressive disorder, in partial remission F33.41 and Morbid obesity E66.01 [facility] [id number], [place] [id number] Dec, [facility] [place] [address] [id number], [place] [id number] Dec, Chronic bacterial conjunctivitis of left eye H10.[address] [id number], [place] [id number] Nov, [facility] [id number], [place] [id number] Nov, Dental examination Z01.[address] [id number], [place] [id number] 23 Nov, 2016 Benign essential hypertension I10 ; Hist ory of gastric bypass Z98.890 and Nausea and vomiting in adult R11.2 [place] [address] [facility] [id number] [address] [place] [address] 13 Nov, 2016 Major depressive disorder, r ecurrent, moderate F33.1 ; Generalized anxiety disorder F41.1 and Insomnia due to other mental disorder F51.05 [place] [address] [address] [facility] [id number] [address] [place] [address] 12 Nov, 2016 Recurrent major depressive d isorder, in partial remission F33.41 ; Insomnia G47.00 and Morbid obesity E66.01 [facility] [address] [facility] [id number] Kiesha ESCOBEDO S [id number] October, Abscess of left arm L02.414 [place] [address] [address] [facility] [id number] [address] [place] [address] October, Morbid obesity E66.01 ; Lida r depression F32.9 and Recurrent major depressive disorder, in partial remission F33.41 [facility] [address] [id number], [place] [id number] Sep, Benign essential hypertension I10 ; Morb id obesity E66.01 ; S/P gastric bypass Z98.84 ; Abscess L02.91 and Chronic bacterial conjunctivitis of left eye H10.[address] [id number], [place] [id number] Sep, Dental examination Z01.20 [place] [address] [place] [address] Sep, Morbid obesity E66.01 ; Lida r depression F32.9 and Recurrent major depressive disorder, in partial remission F33.41 [place] [address] [place] [address] Jul, [place] [address] [place] [id number] [address] [place] [address] Jul, Major depressive disorder, r ecurrent, moderate F33.1 [place] [address] [address] [place] [id number] [address] [place] [address] Jul, Major depressive disorder, r ecurrent, moderate F33.1 and Generalized anxiety disorder F41.1 [facility] [address] [id number], [place] [id number] Jul, Cough R05 [place] [address] [address] [facility] [id number] [address] [place] [address] 16 Jul, 2016 Morbid obesity E66.01 ; Lida r depression F32.9 and Recurrent major depressive disorder, in partial remission F33.[address] [place] [address] [id number], [place] [id number] Jul, [facility] [address] [id number], [place] [id number] Jul, [facility] [address] [id number], [place] [id number] Jul, Gastroenteritis K52.9 and Cough R05 [facility] [address] [id number], [place] [id number] Jun, Acute bacterial conjunctivitis of left e ye H10.32 [facility] [address] [facility] [id number] [address] [place] [address] Jun, [place] [address] [place] [id number] [address] [place] [address] Jun, Recurrent major depressive d isorder, in partial remission F33.41 [place] [address] [address] [place] [id number] [address] [place] [address] May, Major depression F32.9 and M orbid obesity E66.01 [place] [address] [address] [facility] [id number] [address] [place] [address] May, [facility] [address] [facility] [address] [id number] [place] [address] [id number] May, Thrush B37.0 [place] [address] [address] [facility] [id number] [address] [place] [address] Apr, Major depressive disorder, r ecurrent, moderate F33.1 [facility] [address] [facility] [id number] [address] [place] [address] Apr, Insomnia G47.00 ; Major depr ession F32.9 and Recurrent major depressive disorder, in partial remission F33.41 [facility] [address] [facility] [id number] [address] [place] [address] Apr, [facility] [address] [facility] [id number] [address] [place] [address] Apr, Major depression F32.9 and R ecurrent major depressive disorder, in partial remission F33.41 [facility] [address] [id number], [place] [id number] Mar, Benign essential hypertension I10 ; Morb id obesity E66.01 ; Impacted cerumen of both ears H61.23 ; Laceration of finger of right hand, initial encounter S61.219A and Encounter for immunization Z23 [facility] [address] [facility] [id number] [address] [place] [address] Mar, [facility] [address] [facility] [id number] [address] [place] [address] Mar, [facility] [address] [facility] [id number] [address] [place] [phone] Mar, [address] [id number], [place] [id number] Feb, Nausea R11.0 ; Blood in the stool K92.1 and Benign essential hypertension I10 [facility] [address] [facility] [id number] [address] [place] [address] Feb, Major depression F32.9 and R ecurrent major depressive disorder, in partial remission F33.41 [facility] [address] [id number], [place] [id number] Feb, Recurrent major depressive disorder, in partial remission F33.41 [facility] [address] [id number], [place] [id number] Feb, [facility] [address] [id number], [place] [id number] Jan, [facility] [address] [id number], [place] [id number] Jan, Benign essential hypertension I10 ; Robert a R60.9 and Hyperlipidemia, unspecified hyperlipidemia type E78.5 [facility] [address] [id number], [place] [id number] Jan, Recurrent major depressive disorder, in partial remission F33.41 [facility] [address] [id number] Kiesha ESCOBEDO S [id number] Jan, [facility] [address] [id number], [place] [id number] Jan, [facility] [address] [id number], [place] [id number] Jan, [facility] [address] [facility] [id number] [address] [place] [address] Jan, [facility] [address] [facility] [id number] [address] [place] [address] Dec, [facility] [address] [facility] [id number] [address] [place] [address] Nov, [facility] [address] [facility] [id number] [address] [place] [address] Nov, Major depression F32.9 [facility] [address] [facility] [id number] [address] [place] [address] Nov, [facility] [address] [facility] [id number] [address] [place] [phone] Nov, [facility] [address] [facility] [id number] [address] [place] [address] Nov, Major depressive disorder, r ecurrent episode, mild F33.0 and Anxiety F41.9 [facility] [address] [id number], [place] [id number] Nov, [facility] [address] [id number], [place] [id number] October, Left elbow pain M25.522 and Other season al allergic rhinitis J30.2 [facility] [address] [id number], [place] [id number] October, [facility] [address] [facility] [id number] [address] [place] [address] October, Major depressive disorder, r ecurrent, moderate F33.1 [facility] [address] [facility] [id number] [address] [place] [address] October, Major depression F32.9 [facility] [address] [facility] [id number] [address] [place] [address] Sep, Mclean or callus L84 and Onych omycosis B35.1 [facility] [address] [facility] [id number] [address] [place] [address] Sep, Major depressive disorder, r ecurrent, moderate F33.1 [facility] [address] [facility] [id number] [address] [place] [address] Sep, Major depression F32.9 [facility] [address] [facility] [id number] [address] [place] [address] Sep, Moderate episode of recurren t major depressive disorder F33.1 [facility] [id number] [place] [address] [id number] Sep, Muscle strain T14.8 [facility] [address] [facility] [id number] [address] [place] [address] Aug, Major depression F32.9 [facility] [address] [facility] [id number] [address] [place] [address] Aug, Major depression F32.9 [facility] [address] [facility] [id number] [address] [place] [address] Jul, Morbid obesity E66.01 and Ma cora depression F32.9 [facility] [address] [facility] [id number] [address] [place] [address] Jul, Depression, major, recurrent , moderate F33.1 [facility] [id number] [place] [id number] Jul, [facility] [address] [facility] [id number] [address] [place] [address] Jul, [facility] [address] [facility] [id number] [address] [place] [phone] 16 Jul, 2015 Major depression F32.9 and M orbid obesity E66.01 [address] [id number], [place] [id number] 11 Jul, 2015 Type II diabetes mellitus E11.9 ; Callus of foot L84 ; Benign essential hypertension I10 and Renal insufficiency N28.9 [place] [address] [facility] [id number] [address] [place] [address] 09 Jul, 2015 Depression, major, recurrent , moderate F33.1 [place] [address] [facility] [id number] [address] [place] [address] Jul, Major depression F32.9 [place] [address] [facility] [id number] [address] [place] [address] Jul, [place] [address] [place] [id number] [address] [place] [address] Jun, Major depression F32.9 [place] [address] [facility] [id number] [address] [place] [address] Jun, Major depressive disorder, r ecurrent, moderate F33.1 [place] [address] [facility] [id number] [address] [place] [address] Jun, [place] [address] [place] [id number] [address] [place] [address] Jun, Major depressive disorder, r ecurrent, moderate F33.1 and Major depression F32.[address] [id number], [place] [id number] Jun, Type II diabetes mellitus E11.9 [place] [address] [facility] [id number] [address] [place] [address] Jun, Depression, major, recurrent , moderate F33.1 [place] [address] [facility] [id number] [address] [place] [address] May, Major depressive disorder, r ecurrent, moderate F33.1 [place] [address] [facility] [id number] [address] [place] [address] May, [id number] [place] [address] [id number] May, Edema R60.9 [facility] [address] [facility] [id number] [address] [place] [address] May, Insomnia G47.00 and Major de pression F32.[id number] [place] [address] [id number] 15 May, 2015 Morbid obesity E66.01 ; Edema R60.9 ; Sh ortness of breath R06.02 ; Benign essential hypertension I10 and Renal insufficiency N28.[id number] [place] [address] [id number] May, Hyperlipemia 272.4 and Renal insufficien cy N28.9 [place] [address] [facility] [id number] [address] [place] [phone] Apr, Major depression F32.9 [place] [address] [facility] [id number] [address] [place] [address] Apr, [place] [address] [place] [id number] [address] [place] [phone] Apr, Major depressive disorder, r ecurrent, moderate F33.[id number] [place] [address] [id number] Apr, Type II diabetes mellitus E11.9 ; Benign essential hypertension I10 ; Edema R60.9 [address] Renal insufficiency N28.9 [facility] [address] [facility] [id number] [address] [place] [address] Mar, Major depressive disorder, r ecurrent, moderate F33.1 [place] [address] [facility] [id number] [address] [place] [phone] Mar, [facility] [address] [facility] [id number] [address] [place] [address] Mar, Major depression F32.[address] [id number], [place] [id number] 08 Mar, 2015 Morbid obesity E66.01 ; Benign essential hypertension I10 and Type II diabetes mellitus E11.9 [place] [address] [facility] [id number] [address] [place] [phone] Feb, Major depressive disorder, r ecurrent episode, in partial or unspecified remission 296.35 ; Anxiety state, unspecified 300.00 and Morbid obesity 278.01 [place] [address] [facility] [id number] [address] [place] [id number] Feb, Major depressive disorder, r ecurrent, moderate F33.1 [place] [address] [address] [facility] [id number] [address] [place] [id number] Feb, [id number] [place] [id number] 16 Feb, 2015 Vomiting 787.03 and Viral syndrome 079.[address] [id number] [place] [id number] 15 Feb, 2015 Major depression, recurrent 296.30 ; Generalized anxiety disorder 300.02 and No condition on [place] V71.[address] [id number] [id number] 03 Feb, 2015 Skin tag 701.[address] [id number] [address] [place] [id number] Feb, [address] [id number] [address] [place] [id number] Jan, Depression, major, recurrent , moderate 296.[id number] [place] [id number] Jan, Nausea and vomiting 787.01 ; Rib pain on right side 786.50 and Fall on or from sidewalk curb E880.[address] [id number] [address] [place] [id number] Jan, [facility] [address] [facility] [id number] [address] [place] [id number] Jan, Major depressive disorder, r ecurrent episode, in partial or unspecified remission 296.35 and Anxiety state, unspecified 300.00 [facility] [address] [place] [address] AVE [id number] [id number] Jan, [place] [id number] [address] [place] [id number] Jan, Depression, major, recurrent , moderate 296.[address] [id number] [address] [place] [place] [address] Jan, Major depression, recurrent 296.30 ; No condition on [place] II V71.09 and No condition on axis III V71.[address] [id number] [id number] Jan, Drug-induced nausea and vomiting 787.01 [place] [id number] [address] [place] [address] Jan, Depression, major, recurrent , moderate 296.32 [place] [id number] [address] [place] [address] Dec, Depression, major, recurrent , moderate 296.[address] [id number] [id number] Dec, Morbid obesity 278.01 ; Metabolic syndro me 277.7 ; Hyperlipemia 272.4 ; Benign essential hypertension 401.1 ; Dietary counseling V65.3 ; Exercise counseling V65.41 and Inflamed skin tag 701.9 [place] [id number] [address] [place] [address] Dec, Depression, major, recurrent , moderate 296.32 [place] [id number] [address] [place] [address] Dec, [place] [id number] [address] [place] [address] Dec, Major depression, recurrent 296.30 ; Anxiety, generalized 300.02 and No condition on [place] II V71.09 [place] [address] [place] [id number] Dec, Depression, major, recurrent , moderate 296.32 [place] [address] [place] [id number] Dec, Major depressive disorder, r ecurrent episode, moderate 296.32 [place] [address] [address] [place] [address] Dec, Depression, major, recurrent , moderate 296.32 [place] 541022[address] Dec, Depression, major, recurrent , moderate 296.[address] [address] Dec, Depression, major, recurrent , moderate 296.32 [place] [address] [address] Dec, Depression, major, recurrent , moderate 296.32 [place] [address] [address] Nov, Depression, major, recurrent , moderate 296.[address] [address] Nov, Major depression 296.20 ; So cial phobia 300.23 and No condition on [place] II V71.09 [place] [address] [address] Nov, Depression, major, recurrent , moderate 296.32 [place] [id number] Nov, Major depressive disorder, r ecurrent episode, moderate 296.32 and Generalized anxiety disorder 300.02 [place] [address] [place] [id number] 09 Nov, 2014 Depression, major, recurrent , moderate 296.32 [facility] [address] [id number] [address] [place] [address] 04 Nov, 2014 Depression, major, recurrent , moderate 296.32 [facility] [address] [facility] [id number] [address] [place] [address] October, Generalized anxiety disorder 300.02 ; No condition on [place] II V71.09 and Major depressive disorder, recurrent 296.30 [facility] [address] [id number] [address] [place] [address] Sep, [facility] [address] [id number] [address] [place] [address] Sep, [facility] [address] [id number] [address] [place] [address] 24 Aug, 2014 [facility] [address] [id number] [address] [place] [address] [address], [address] [facility] [address] [id number] [address] [place] [address] Aug, [facility] [address] [id number] [address] [place] [address] 23 Aug, 2014 [facility] [address] [id number] [address] [place] [address] 20 Aug, 2014 [facility] [address] [id number] [address] [place] [address] 20 Aug, [address] [facility] [address] [id number] [address] [place] [address] 20 Aug, [address] [facility] [address] [id number] [address] [place] [address] 20 Aug, [address] [facility] [address] [id number] [address] [place] [address] 13 Aug[address] [facility] [address] [id number] [address] [place] [address] 13 Aug, 2014 [facility] [address] [id number] [facility] [place] [address] 13 Aug, 2014 [facility] [address] [id number] [address] [place] [address], [place] [address] 13 Aug, 2014 [facility] [address] [id number] [address] [place] [address], [place] [address] Aug, [facility] [address] [id number] [address] [place] [address], [place] [address] Aug, [facility] [address] [id number] [address] [place] [address], [place] [address] Aug, [facility] [address] [id number] [address] [place] [address], [place] [address] Aug, [facility] [address] [id number] [address] [place] [address], [place] [address] Aug, [facility] [address] [id number] [address] [place] [address], [place] [address] Aug, [facility] [address] [id number] [address] [place] [address], [place] [address] Jul, [facility] [address] [id number] [address] [place] [address], [place] [address] Jul, [facility] [address] [id number] [address] [place] [address], [place] [address] Jul, [facility] [address] [id number] [address] [place] [address], [place] [address] Jul, 2014 [facility] [address] [id number] [address] [place] [address], [place] [address] Jul, [facility] [address] [id number] [address] [place] [address], [place] [address] Jul, [facility] [address] [id number] [address] [place] [address], [place] [address] Jun, [facility] [address] [id number] [address] [place] [address], [place] [address] Jun, [facility] [address] [id number] [address] [place] [address], [place] [address] Jun, [facility] [address] [id number] [address] [place] [address], [place] [address] Jun, [facility] [address] [id number] [address] [place] [address], [place] [address] Jun, [facility] [address] [id number] [address] [place] [address], [place] [address] Jun, [facility] [address] [id number] [address] [place] [address], [place] [address] Jun, [facility] [address] [id number] [address] [place] [address], [place] [address] Jun, [facility] [address] [id number] [address] [place] [address], [place] [address] Jun, [facility] [address] [id number] [address] [place] [address], [place] [address] Jun, [facility] [address] [id number] [address] [place] [address], [place] [address] Jun, [facility] [address] [id number] [address] [place] [address], [place] [address] Jun, [facility] [address] [id number] [place] [id number] Jun, [facility] [address] [id number] [address] [place] [address], [place] [address] Jun, [facility] [address] [id number] [address] [place] [address], [place] [address] Jun, [facility] [address] [id number] [address] [place] [address], [place] [address] Jun, [facility] [address] [id number] [address] [place] [address], [place] [address] May, [facility] [address] [id number] [address] [place] [address], [place] [address] May, [facility] [address] [id number] [address] [place] [address], [place] [address] May, [facility] [address] [id number] [address] [place] [address], [place] [address] May, [facility] [address] [id number] [address] [place] [address], [place] [address] Apr, [facility] [address] [id number] [address] [place] [address], [place] [address] Apr, [facility] [address] [id number] [address] [place] [address], [place] [address] Apr, [facility] [address] [id number] [address] [place] [address], [place] [address] Apr, [facility] [address] [id number] [address] [place] [address], [place] [address] Apr, [facility] [address] [id number] [address] [place] [address], [place] [address] Apr, [facility] [address] [id number] [address] [place] [address], [place] [address] Apr, [facility] [address] [id number] [address] [place] [address], [place] [address] Apr, [facility] [address] [id number] [address] [place] [address], [place] [address] Apr, [facility] [address] [id number] [address] [place] [address], [place] [address] Apr, [facility] [address] [id number] [address] [place] [address], [place] [address] Apr, [facility] [address] [id number] [address] [place] [address], [place] [address] Apr, [facility] [address] [id number] [address] [place] [address] Apr, [facility] [address] [id number] [address] [place] [address], [place] [address] Apr, [facility] [address] [id number] [address] [place] [address] Apr, [facility] [address] [id number] [address] [place] [address], [place] [address] Apr, [facility] [address] [id number] [address] [place] [address] Apr, [facility] [address] [id number] [address] [place] [address], [place] [address] Apr, [facility] [address] [id number] [address] [place] [address], [place] [address] Apr, [facility] [address] [id number] [address] [place] [address] Apr, [facility] [address] [id number] [address] [place] [address] Mar, [facility] [address] [id number] [address] [place] [address] Mar, [facility] [address] [id number] [address] [place] [address] Mar, [facility] [address] [id number] [address] [place] [address] Mar, [facility] [address] [id number] [address] [place] [address] Mar, [facility] [address] [id number] [address] [place] [address] Mar, [facility] [address] [id number] [address] [place] [address] Mar, [facility] [address] [id number] [address] [place] [address], [place] [address] Mar, [facility] [address] [id number] [facility] [place] [address] Mar, [facility] [address] [id number] [address] [place] [address], [place] [address] Mar, [facility] [address] [id number] [address] [place] [address], [place] [address] Feb, [facility] [address] [id number] [address] [place] [address], [place] [address] Feb, [facility] [address] [id number] [address] [place] [address], [place] [address] Feb, [facility] [address] [id number] [address] [place] [address], [place] [address] Feb, [facility] [address] [id number] [address] [place] [address], [place] [address] Jan, [facility] [address] [id number] [address] [place] [address], [place] [address] Jan, [facility] [address] [id number] [address] [place] [address], [place] [address] Jan, [facility] [address] [id number] [address] [place] [address], [place] [address] Jan, [facility] [address] [id number] [address] [place] [address], [place] [address] Jan, [facility] [address] [id number] [address] [place] [address], [place] [address] Jan, [facility] [address] [id number] [address] [place] [address], [place] [address] Dec, [facility] [address] [id number] [address] [place] [address], [place] [address] Dec, [facility] [address] [id number] [address] [place] [address], [place] [address] Nov, [facility] [address] [id number] [address] [place] [address], [place] [address] Nov, [facility] [address] [id number] [facility] [place] [address] Nov, [facility] [address] [id number] [facility] [place] [address] Nov, [facility] [address] [id number] [facility] [place] [address] Nov, [facility] [address] [id number] [address] [place] [address], [place] [address] Nov, [facility] [address] [id number] [address] [place] [address], [place] [address] Sep, [facility] [address] [id number] [address] [place] [address], [place] [address] Sep, [facility] [address] [id number] [address] [place] [address], [place] [address] Sep, [facility] [address] [id number] [address] [place] [address], [place] [address] Sep, [facility] [address] [id number] [address] [place] [address], [place] [address] Aug, [facility] [address] [id number] [address] [place] [address], [place] [address] Aug, [facility] [address] [id number] [address] [place] [address], [place] [address] Jul, [facility] [address] [id number] [address] [place] [address], [place] [address] Jul, [facility] [address] [id number] [address] [place] [address], [place] [address] Jun, [facility] [address] [id number] [address] [place] [address], [place] [address] Jun, [facility] [address] [id number] [address] [place] [address], [place] [address] Jun, [facility] [address] [id number] [address] [place] [address], [place] [address] 16 Jun, 2013 [facility] [address] [id number] [address] [place] [address], [place] [address] May, [facility] [address] [id number] [address] [place] [address], [place] [address] May, [facility] [address] [id number] [address] [place] [address], [place] [address] May, [facility] [address] [id number] [address] [place] [address], [place] [address] May, [facility] [address] [id number] [address] [place] [address], [place] [address] May, [facility] [address] [id number] [address] [place] [address], [place] [address] May, [facility] [address] [id number] [address] [place] [address], [place] [address] Apr, [facility] [address] [id number] [address] [place] [address], [place] [address] Apr, [facility] [address] [id number] [address] [place] [address], [place] [address] Apr, [facility] [address] [id number] [address] [place] [address], [place] [address] Apr, [facility] [address] [id number] [address] [place] [address], [place] [address] Mar, [facility] [address] [id number] [address] [place] [address], [place] [address] Mar, [facility] [address] [id number] [address] [place] [address], [place] [address] Mar, [facility] [address] [id number] [address] [place] [address], [place] [address] Mar, [facility] [address] [id number] [address] [place] [address], [place] [address] Feb, [facility] [address] [id number] [place] [id number] Jan, [facility] [address] [id number] [address] [place] [address] Jan, [facility] [address] [id number] [address] [place] [address] Dec, [facility] [address] [id number] [address] [place] [address] Dec, [facility] [address] [id number] [address] [place] [address] Dec, [facility] [address] [id number] [place] [id number] Dec, [facility] [address] [id number] [address] [place] [address] Nov, [facility] [address] [id number] [address] [place] [address] Nov, [facility] [address] [id number] [address] [place] [address] Nov, [facility] [address] [id number] [address] [place] [address] Nov, [facility] [address] [id number] [address] [place] [address] Nov, [facility] [address] [id number] [address] [place] [address] October, [facility] [address] [id number] [address] [place] [address] October, [facility] [address] [id number] [address] [place] [address] Aug, [facility] [address] [id number] [address] [place] [address] 13 Nov, 2011 IMMUNIZATIONS No Known Immunizations SOCIAL HISTORY Never Assessed REASON FOR VISIT intake PLAN OF CARE Activity Details Follow Up 6 Weeks Reason: VITAL SIGNS Height 71.5 in 2017-02-21 Weight 376.3 lbs 2017-02-21 Heart Rate 64 bpm 2017-02-21 Respiratory Rate 20 2017-02-21 BMI 51.75 kg/m2 2017-02-21 Blood pressure systolic 140 mmHg 2017-02-21 Blood pressure diastolic 90 mmHg 2017-02-21 MEDICATIONS Medication Instructions Dosage Frequency Start Date End Date Duration S tatus Flovent HFA 110 mcg/actuation inhalation once per day 1-3 Puffs 1 time per day October, 0 Active Augmentin 875-125 MG Orally every 12 hrs 1 tablet 12h 11 Feb, 2 017 21 Feb, 2017 10 day(s) Active Zofran 8 MG Orally Once a day 1 tablet 24h A ctive Vitamin D-3 1000 UNIT Orally Once a day 2 capsule 24h Active Flonase 50 mcg/act nasally once per day 1 spray (50 mcg) in each nostril by intranasal route 2 times per day Nov, Active Montelukast Sodium 10 MG TAKE ONE TABLET BY MOUTH DAILY Active Omeprazole 40 MG Orally Once a day 1 tablet 24h 0 da ys Active Atenolol 100 mg Orally Once a day 1 tablet 24h Active Lisinopril 40 mg Orally Once a day 1 tablet 24h Active Trazodone HCl 50 mg Orally Once a day 0.5 - 1 tablet at bedtime as needed 24h Nov, 30 days Active Centrum - Active Trintellix 20 MG Orally Once a day in morning 1 tablet 30 days Active Cetirizine HCl 10 mg Orally [...]
--- OUTSIDE RECORDS SUMMARY | 2019-11-29 09:42 | XMS REPORT ---
Author Author Curt TRIMBLE [facility] eClinicalWorks Address Unknown Phone Unavailable Care Team Providers Care Platform Software Engineer Name Role Phone [facility] CP Unavailable Allergies No Known Allergies Problems Problem Type Condition Code Onset Dates Condition Statu s Problem Hyperlipemia E78.5 Active Assessment Major depressive disorder, recurrent, moderate F33.1 Active Problem Renal insufficiency N28.9 Active Problem Type II diabetes mellitus E11.9 Ac tive Problem Edema R60.9 Active Problem Insomnia G47.00 Active Problem Major depression F32.9 Active Problem Morbid obesity E66.01 Active Problem Benign essential hypertension I10 Active Medications No Known Medications Procedures Procedure Coding System Code Date [facility] [employer] CPT-4 S0280 May 06, 2015 Results No Known Results Summary Purpose eClinicalWorks Submission
--- OUTSIDE RECORDS SUMMARY | 2019-11-29 09:42 | XMS REPORT ---
Author Author GAL, Curt BEATTY Organization [facility] Address [address] [place] [address] Care Team Providers Care Audit Machine Operator Name Role Phone JACI SANTO Unavailable PROBLEMS Type Condition ICD9-CM Code PTL11-TB Code Onset Dates Condition S tatus SNOMED Code Problem Renal insufficiency N28.9 Active 710339470 Problem Callus of foot L84 Active 56287 1005 Problem Edema R60.9 Active 865996527 Problem Vitamin D deficiency E55.9 Active 64405868 Problem Anxiety F41.9 Active 74032458 Problem Acute bacterial conjunctivitis of left eye H10.32 Active 938157961 Problem Recurrent major depressive disorder, in partial remission F33.41 Active 79065378 Problem Severe episode of recurrent major depressive disorder, without psychotic features F33.2 Active 21822780 Problem Metabolic syndrome E88.81 Active 2 61508153 Problem Hyperlipemia E78.5 Active 3912926 4 Problem Type II diabetes mellitus E11.9 Acti ve 82223280 Problem Insomnia G47.00 Active 525550626 Problem Morbid obesity E66.01 Active 55637 6002 Problem Major depression F32.9 Active 370 885986 Problem Benign essential hypertension I10 Active 7632417 ALLERGIES No Information ENCOUNTERS Encounter Location Date Diagnosis [facility] [address] [id number][place] [id number] Sep, [facility] [address] [id number], [place] [id number] Sep, [facility] [address] [id number], [place] [id number] 15 Aug, 2017 Irritable mood R45.4 [facility] [address] [facility] [id number] [place] [address] Aug, [facility] [address] [id number], [place] [id number] Jul, Benign essential hypertension I10 ; Robert a R60.9 and Impacted cerumen of left ear H61.22 [facility] [address] [facility] [id number] [address] [place] [address] 14 Jul, 2017 Major depression F32.9 ; Rec urrent major depressive disorder, in partial remission F33.41 and Anxiety F41.9 [place] [address] [facility] [place] [id number] [address] [place] [address] Jun, Major depression F32.9 ; Rec urrent major depressive disorder, in partial remission F33.41 and Anxiety F41.9 [facility] [address] [id number], [place] [id number] Jun, Major depression F32.9 ; Morbid obesity E66.01 ; Irritable mood R45.4 ; Hand weakness R29.898 and Vitamin D deficiency E55.[address] [place] [address] [id number][place] [id number] Jun, [facility] [address] [id number], [place] [id number] May, Major depression F32.9 [place] [address] [facility] [place] [id number] [address] [place] [address] May, Major depression F32.9 [facility] [address] [id number], [place] [id number] May, BMI 50.0-59.9, adult Z68.43 ; Major depr ession F32.9 ; Anxiety F41.9 ; Hypertrophic toenail L60.2 and Pain of left great toe M79.675 [facility] [address] [id number], [place] [id number] May, Recurrent major depressive disorder, in partial remission F33.41 [place] [address] [facility] [place] [id number] [address] [place] [address] Apr, [facility] [address] [id number], [place] [id number] Apr, [facility] [address] [facility] [place] [id number] [address] [place] [address] Apr, Major depression F32.9 [facility] [address] [id number], [place] [id number] Apr, Severe episode of recurrent major depres sive disorder, without psychotic features F33.2 ; Anxiety F41.9 and Insomnia G47.[address] [facility] [address] [address] [id number], [place] [id number] Apr, [facility] [address] [facility] [place] [id number] [address] [place] [address] Apr, [facility] [address] [address] [id number], [place] [id number] Apr, [facility] [address] [id number], [place] [id number] Mar, [facility] [address] [id number], [place] [id number] Mar, Allergic conjunctivitis of both eyes H10 .13 [facility] [address] [facility] [place] [id number] [address] [place] [address] Mar, Major depression F32.9 [facility] [address] [id number], [place] [id number] Mar, Metabolic syndrome E88.81 ; History of g astric bypass Z98.890 ; Benign essential hypertension I10 and Allergic conjunctivitis of both eyes H10.13 [facility] [address] [facility] [place] [id number] [address] [place] [address] Mar, Major depression F32.9 [facility] [address] [id number], [place] [id number] Feb, [facility] [address] [facility] [place] [id number] [address] [place] [address] Feb, Major depression F32.[address] [facility] [address] [id number], [place] [id number] Feb, Subacute maxillary sinusitis J01.00 and Bronchitis J40 [place] [address] [place] [address] Feb, Major depressive disorder, r ecurrent, moderate F33.1 [facility] [address] [place] [address] AVE [id number], [place] [id number] Jan, [id number] [place] [address] [id number] Jan, Acute non-recurrent maxillary sinusitis J01.00 and Skin tag L91.[id number] [place] [address] [id number] Jan, Cough R05 and Sinus congestion R09.[address] [id number] [place] [id number] Jan, [address] [id number] [place] [address] [id number] Jan, Benign essential hypertension I10 ; Hist ory of gastric bypass Z98.890 and Nausea and vomiting in adult R11.2 [place] [address] [place] [address] Jan, Major depressive disorder, r ecurrent, moderate F33.1 [place] [address] [place] [address] Dec, Insomnia G47.00 ; Recurrent major depressive disorder, in partial remission F33.41 and Morbid obesity E66.01 [facility] [address] [facility] [address] [id number], [place] [id number] Dec, [facility] [address] [facility] [address] [id number], [place] [id number] Dec, Chronic bacterial conjunctivitis of left eye H10.402 [id number] [place] [id number] Nov, [address] [id number], [place] [id number] Nov, Dental examination Z01.[address] [id number] [place] [address] [id number] Nov, Benign essential hypertension I10 ; Hist ory of gastric bypass Z98.890 and Nausea and vomiting in adult R11.2 [place] [id number] [place] [address] 13 Nov, 2016 Major depressive disorder, r ecurrent, moderate F33.1 ; Generalized anxiety disorder F41.1 and Insomnia due to other mental disorder F51.05 [place] [id number] [place] [address] 12 Nov, 2016 Recurrent major depressive d isorder, in partial remission F33.41 ; Insomnia G47.00 and Morbid obesity E66.01 [facility] [address] [facility] [id number] MEDICAL [facility] [id number] October, Abscess of left arm L02.414 [place] [id number] [address] [place] [address] October, Morbid obesity E66.01 ; Lida r depression F32.9 and Recurrent major depressive disorder, in partial remission F33.[address] [id number], [place] [id number] Sep, Benign essential hypertension I10 ; Morb id obesity E66.01 ; S/P gastric bypass Z98.84 ; Abscess L02.91 and Chronic bacterial conjunctivitis of left eye H10.[id number] [place] [address] [id number] Sep, Dental examination Z01.20 [place] [address] [place] [id number] [address] [place] [address] Sep, Morbid obesity E66.01 ; Lida r depression F32.9 and Recurrent major depressive disorder, in partial remission F33.41 [place] [address] [facility] [place] [id number] [address] [place] [address] Jul, [facility] [address] [facility] [place] [id number] [address] [place] [address] Jul, Major depressive disorder, r ecurrent, moderate F33.1 [facility] [address] [facility] [place] [id number] [address] [place] [address] Jul, Major depressive disorder, r ecurrent, moderate F33.1 and Generalized anxiety disorder F41.1 [facility] [address] [id number], [place] [id number] Jul, Cough R05 [place] [address] [facility] [place] [id number] [place] [address] Jul, Morbid obesity E66.01 ; Lida r depression F32.9 and Recurrent major depressive disorder, in partial remission F33.41 [facility] [id number] [place] [address] [id number] Jul, [facility] [id number] [place] [address] [id number] Jul, [facility] [address] [id number] [place] [address] [id number] Jul, Gastroenteritis K52.9 and Cough R05 [place] [address] [id number] [place] [address] [id number] Jun, Acute bacterial conjunctivitis of left e ye H10.32 [place] [address] [facility] [place] [id number] [address] [place] [address] Jun, [place] [address] [facility] [place] [id number] [address] [place] [address] Jun, Recurrent major depressive d isorder, in partial remission F33.41 [place] [address] [place] [id number] [address] [place] [address] May, Major depression F32.9 and M orbid obesity E66.01 [place] [address] [place] [id number] [address] [place] [address] May, [place] [address] [facility] [address] [id number] [place] [address] [id number] May, Thrush B37.0 [facility] [address] [facility] [id number] [address] [place] [address] Apr, Major depressive disorder, r ecurrent, moderate F33.1 [facility] [address] [facility] [place] [id number] [address] [place] [address] Apr, Insomnia G47.00 ; Major depr ession F32.9 and Recurrent major depressive disorder, in partial remission F33.41 [place] [address] [facility] [id number] [address] [place] [address] Apr, [place] [address] [facility] [place] [id number] [address] [place] [address] Apr, Major depression F32.9 and R ecurrent major depressive disorder, in partial remission F33.[address] [id number] [place] [address] [id number] Mar, Benign essential hypertension I10 ; Morb id obesity E66.01 ; Impacted cerumen of both ears H61.23 ; Laceration of finger of right hand, initial encounter S61.219A and Encounter for immunization Z23 [facility] [address] [facility] [place] [id number] [address] [place] [address] 17 Mar, 2016 [facility] [address] [facility] [place] [id number] [address] [place] [address] Mar, [place] [address] [facility] [place] [id number] [address] [place] [address] Mar, [address] [id number] [place] [address] [id number] Feb, Nausea R11.0 ; Blood in the stool K92.1 and Benign essential hypertension I10 [place] [address] [facility] [id number] [address] [place] [address] Feb, Major depression F32.9 and R ecurrent major depressive disorder, in partial remission F33.41 [facility] [address] [id number], [place] [id number] Feb, [facility] [address] [id number], [place] [id number] Feb, Recurrent major depressive disorder, in partial remission F33.41 [facility] [address] [id number], [place] [id number] Jan, [facility] [address] [id number], [place] [id number] Jan, Benign essential hypertension I10 ; Robert a R60.9 and Hyperlipidemia, unspecified hyperlipidemia type E78.5 [facility] [address] [id number], [place] [id number] Jan, Recurrent major depressive disorder, in partial remission F33.41 [facility] [address] [id number] [id number] Jan, [facility] [address] [id number], [place] [id number] Jan, [facility] [address] [id number], [place] [id number] Jan, [facility] [address] [facility] [id number] [address] [place] [address] Jan, [facility] [address] [facility] [id number] [address] [place] [address] Dec, [facility] [address] [facility] [id number] [address] [place] [address] Nov, [facility] [address] [facility] [id number] [address] [place] [address] Nov, Major depression F32.9 [facility] [address] [facility] [id number] [address] [place] [address] Nov, [facility] [address] [facility] [id number] [address] [place] [address] Nov, [facility] [address] [facility] [id number] [address] [place] [address] Nov, Major depressive disorder, r ecurrent episode, mild F33.0 and Anxiety F41.9 [facility] [address] [id number], [place] [id number] Nov, [facility] [id number] [place] [address] [id number] October, Left elbow pain M25.522 and Other season al allergic rhinitis J30.[address] [id number] [place] [address] [id number] October, [place] [address] [facility] [id number] [address] [place] [address] October, Major depressive disorder, r ecurrent, moderate F33.1 [place] [address] [facility] [id number] [address] [place] [address] October, Major depression F32.9 [place] [address] [facility] [id number] [address] [place] [address] Sep, [place] or callus L84 and Onych omycosis B35.1 [place] [address] [facility] [id number] [address] [place] [address] Sep, Major depressive disorder, r ecurrent, moderate F33.1 [place] [address] [facility] [place] [id number] [address] [place] [address] Sep, Major depression F32.9 [place] [address] [facility] [id number] [address] [place] [address] Sep, Moderate episode of recurren t major depressive disorder F33.1 [facility] [address] [id number], [place] [id number] Sep, Muscle strain T14.8 [facility] [address] [facility] [id number] [address] [place] [address] Aug, Major depression F32.9 [facility] [address] [facility] [id number] [address] [place] [address] Aug, Major depression F32.9 [facility] [address] [facility] [id number] [address] [place] [address] Jul, Morbid obesity E66.01 and Ma cora depression F32.9 [facility] [address] [facility] [id number] [address] [place] [address] Jul, Depression, major, recurrent , moderate F33.[address] [id number] [place] [address] [id number] Jul, [place] [address] [facility] [id number] [address] [place] [address] Jul, [place] [address] [address] Jul, Major depression F32.9 and M orbid obesity E66.[id number] [place] [address] [id number] Jul, Type II diabetes mellitus E11.9 ; Callus of foot L84 ; Benign essential hypertension I10 and Renal insufficiency N28.9 [place] [address] [place] [id number] [address] [place] [phone] 09 Jul, 2015 Depression, major, recurrent , moderate F33.1 [place] [address] [facility] [id number] [address] [place] [address] Jul, Major depression F32.9 [facility] [address] [facility] [id number] [address] [place] [address] Jul, [place] [address] [facility] [id number] [address] [place] [address] Jun, Major depression F32.9 [facility] [address] [facility] [id number] [address] [place] [address] Jun, Major depressive disorder, r ecurrent, moderate F33.1 [facility] [address] [facility] [id number] [address] [place] [address] Jun, [place] [address] [facility] [id number] [address] [place], [place] [id number] Jun, Major depressive disorder, r ecurrent, moderate F33.1 and Major depression F32.[address] [place] [id number] [place] [address] [id number] Jun, Type II diabetes mellitus E11.9 [place] [address] [facility] [id number] [address] [place], [place] [address] Jun, Depression, major, recurrent , moderate F33.1 [place] [address] [facility] [id number] [address] [place] [address] May, Major depressive disorder, r ecurrent, moderate F33.1 [place] [address] [place] [id number] [address] [place] [address] May, [place] [id number] [place] [address] [id number] May, Edema R60.9 [place] [address] [place] [id number] [address] [place] [address] 17 May, 2015 Insomnia G47.00 and Major de pression F32.[address] [place] [id number] [place] [address] [id number] 15 May, 2015 Morbid obesity E66.01 ; Edema R60.9 ; Sh ortness of breath R06.02 ; Benign essential hypertension I10 and Renal insufficiency N28.[address] [place] [id number] [place] [address] [id number] 14 May, 2015 Hyperlipemia 272.4 and Renal insufficien cy N28.9 [place] [address] [facility] [id number] [address] [place] [address] Apr, Major depression F32.9 [place] [address] [place] [id number] [address] [place] [address] Apr, [facility] [address] [facility] [id number] [address] [place] [address] Apr, Major depressive disorder, r ecurrent, moderate F33.1 [facility] [address] [id number], [place] [id number] Apr, Type II diabetes mellitus E11.9 ; Benign essential hypertension I10 ; Edema R60.9 and Renal insufficiency N28.9 [place] [address] [facility] [id number] [address] [place] [address] Mar, Major depressive disorder, r ecurrent, moderate F33.1 [place] [address] [facility] [id number] [address] [place] [address] Mar, [place] [address] [place] [id number] [address] [place] [address] Mar, Major depression F32.9 [facility] [address] [place] [address] AVE [id number] [place] [address] [id number] Mar, Morbid obesity E66.01 ; Benign essential hypertension I10 and Type II diabetes mellitus E11.9 [place] [address] [facility] [id number] [address] [place] [phone] Feb, Major depressive disorder, r ecurrent, moderate F33.1 [place] [address] [facility] [id number] [address] [place] [address] Feb, Major depressive disorder, r ecurrent episode, in partial or unspecified remission 296.35 ; Anxiety state, unspecified 300.00 and Morbid obesity 278.01 [place] [address] [facility] [id number] [address] [place] [address] Feb, [facility] [address] [facility] [address] [id number] [place] [address] [id number] Feb, Vomiting 787.03 and Viral syndrome 079.9 9 [place] [address] [facility] [id number] [address] [place] [address] Feb, Major depression, recurrent 296.30 ; Generalized anxiety disorder 300.02 and No condition on [place] II V71.09 [facility] [address] [place] [address] [id number] [id number] Feb, Skin tag 701.9 [facility] [address] [facility] [place] [id number] [address] [place] [id number] Feb, [facility] [address] [place] [id number] [address] [place] [id number] Jan, Depression, major, recurrent , moderate 296.[address] [id number][place] [id number] Jan, Nausea and vomiting 787.01 ; Rib pain on right side 786.50 and Fall on or from sidewalk curb E880.1 [facility] [address] [facility] [place] [id number] [address] [place] [id number] Jan, [facility] [address] [place] [id number] [address] [place] [id number] Jan, Major depressive disorder, r ecurrent episode, in partial or unspecified remission 296.35 and Anxiety state, unspecified 300.[address] [id number][place] [id number] Jan, [facility] [address] [facility] [place] [id number] [address] [place] [id number] Jan, Depression, major, recurrent , moderate 296.32 [facility] [address] [place] [id number] [address] [place] [phone] Jan, Major depression, recurrent 296.30 ; No condition on [place] II V71.09 and No condition on axis III V71.[id number] [place] [id number] Jan, Drug-induced nausea and vomiting 787.01 [facility] [facility] [address] [facility] [place] [facility] [id number] [address] [place] [address] Jan, Depression, major, recurrent , moderate 296.32 [facility] [address] [facility] [place] [facility] [id number] [address] [place] [address] Dec, Depression, major, recurrent , moderate 296.32 [facility] [id number] [place] [id number] Dec, Morbid obesity 278.01 ; Metabolic syndro me 277.7 ; Hyperlipemia 272.4 ; Benign essential hypertension 401.1 ; Dietary counseling V65.3 ; Exercise counseling V65.41 and Inflamed skin tag 701.9 [place] [address] [place] [id number] [address] [place] [address] Dec, Depression, major, recurrent , moderate 296.32 [place] [address] [address] Dec, [address] [address] Dec, Major depression, recurrent 296.30 ; Anxiety, generalized 300.02 and No condition on [place] II V71.09 [place] [id number] [address] [place] [address] Dec, Depression, major, recurrent , moderate 296.32 [place] [address] [place] [id number] [address] [place] [address] Dec, Major depressive disorder, r ecurrent episode, moderate 296.32 [place] [address] [place] [id number] [address] [place] [address] Dec, Depression, major, recurrent , moderate 296.32 [place] [address] [facility] [place] [facility] [id number] [address] [place] [address] Dec, Depression, major, recurrent , moderate 296.32 [place] [address] [place] [id number] [address] [place] [address] Dec, Depression, major, recurrent , moderate 296.32 [place] [address] [address] Dec, Depression, major, recurrent , moderate 296.32 [facility] [address] [address] 17 Nov, 2014 Depression, major, recurrent , moderate 296.32 [facility] [address] [address] Nov, Major depression 296.20 ; So cial phobia 300.23 and No condition on [place] II V71.09 [facility] [address] [address] Nov, Depression, major, recurrent , moderate 296.32 [place] [address] [address] Nov, Major depressive disorder, r ecurrent episode, moderate 296.32 and Generalized anxiety disorder 300.02 [place] [address] [address] Nov, Depression, major, recurrent , moderate 296.32 [facility] [address] [address] Nov, Depression, major, recurrent , moderate 296.32 [place] [address] [address] October, Generalized anxiety disorder 300.02 ; No condition on [place] II V71.09 and Major depressive disorder, recurrent 296.30 [facility] [address] [address] Sep, [place] [address] [address] Sep, [place] [address] [address] Aug, [facility] [address] [address] Aug, [facility] [address] [address] 23 Aug, 2014 [facility] [address] [id number] [facility] [place] [address] 23 Aug, 2014 [facility] [address] [id number] [facility] [place] [address] 20 Aug, 2014 [facility] [address] [id number] [facility] [place] [address] 20 Aug, 2014 [facility] [address] [id number] [address] [place] [address], [place] [address] 20 Aug, 2014 [facility] [address] [id number] [address] [place] [address], [place] [address] 20 Aug, 2014 [facility] [address] [id number] [address] [place] [address], [place] [address] 13 Aug, 2014 [facility] [address] [id number] [address] [place] [address], [place] [address] 13 Aug, 2014 [facility] [address] [id number] [address] [place] [address], [place] [address] 13 Aug, 2014 [facility] [address] [id number] [address] [place] [address], [place] [address] 13 Aug, 2014 [facility] [address] [id number] [address] [place] [address], [place] [address] Aug, [facility] [address] [id number] [address] [place] [address], [place] [address] Aug, [facility] [address] [id number] [address] [place] [address], [place] [address] 10 Aug, 2014 [facility] [address] [id number] [address] [place] [address], [place] [address] 10 Aug, 2014 [facility] [address] [id number] [address] [place] [address], [place] [address] 09 Aug, 2014 [facility] [address] [id number] [address] [place] [address], [place] [address] 09 Aug, 2014 [facility] [address] [id number] [address] [place] [address], [place] [address] Jul, 2014 [facility] [address] [id number] [address] [place] [address], [place] [address] Jul, [facility] [address] [id number] [address] [place] [address], [place] [address] Jul, 2014 [facility] [address] [id number] [address] [place] [address], [place] [address] Jul, 2014 [facility] [address] [id number] [address] [place] [address], [place] [address] Jul, [facility] [address] [id number] [address] [place] [address], [place] [address] Jul, [facility] [address] [id number] [address] [place] [address], [place] [address] Jun, [facility] [address] [id number] [address] [place] [address], [place] [address] Jun, [facility] [address] [id number] [address] [place] [address], [place] [address] Jun, [facility] [address] [id number] [address] [place] [address], [place] [address] Jun, [facility] [address] [id number] [address] [place] [address], [place] [address] Jun, [facility] [address] [id number] [address] [place] [address], [place] [address] Jun, [facility] [address] [id number] [address] [place] [address], [place] [address] Jun, [facility] [address] [id number] [address] [place] [address], [place] [address] Jun, [facility] [address] [id number] [address] [place] [address], [place] [address] Jun, [facility] [address] [id number] [address] [place] [address], [place] [address] Jun, [facility] [address] [id number] [address] [place] [address], [place] [address] Jun, [facility] [address] [id number] [address] [place] [address], [place] [address] Jun, [facility] [address] [id number] [place] [id number] Jun, [facility] [address] [id number] [address] [place] [address], [place] [address] Jun, [facility] [address] [id number] [address] [place] [address], [place] [address] Jun, [facility] [address] [id number] [address] [place] [address], [place] [address] Jun, [facility] [address] [id number] [address] [place] [address], [place] [address] May, [facility] [address] [id number] [address] [place] [address], [place] [address] May, [facility] [address] [id number] [address] [place] [address], [place] [address] May, [facility] [address] [id number] [address] [place] [address], [place] [address] May, [facility] [address] [id number] [address] [place] [address], [place] [address] Apr, [facility] [address] [id number] [address] [place] [address], [place] [address] Apr, [facility] [address] [id number] [address] [place] [address], [place] [address] Apr, [facility] [address] [id number] [address] [place] [address], [place] [address] Apr, [facility] [address] [id number] [address] [place] [address], [place] [address] Apr, [facility] [address] [id number] [address] [place] [address] Apr, [facility] [address] [id number] [address] [place] [address], [place] [address] Apr, [facility] [address] [id number] [address] [place] [address], [place] [address] Apr, [facility] [address] [id number] [address] [place] [address], [place] [address] Apr, [facility] [address] [id number] [address] [place] [address], [place] [address] Apr, [facility] [address] [id number] [address] [place] [address], [place] [address] Apr, [facility] [address] [id number] [address] [place] [address], [place] [address] Apr, [facility] [address] [id number] [address] [place] [address], [place] [address] Apr, [facility] [address] [id number] [address] [place] [address], [place] [address] Apr, [facility] [address] [id number] [address] [place] [address] Apr, [facility] [address] [id number] [address] [place] [address], [place] [address] Apr, [facility] [address] [id number] [address] [place] [address] Apr, [facility] [address] [id number] [address] [place] [address] Apr, [facility] [address] [id number] [address] [place] [address], [place] [address] Apr, [facility] [address] [id number] [address] [place] [address], [place] [address] Apr, [facility] [address] [id number] [address] [place] [address], [place] [address] Mar, [facility] [address] [id number] [address] [place] [address], [place] [address] Mar, 2013 [facility] [address] [id number] [address] [place] [address], [place] [address] Mar, [facility] [address] [id number] [address] [place] [address], [place] [address] Mar, [facility] [address] [id number] [address] [place] [address], [place] [address] Mar, [facility] [address] [id number] [address] [place] [address], [place] [address] Mar, [facility] [address] [id number] [address] [place] [address], [place] [address] Mar, [facility] [address] [id number] [address] [place] [address], [place] [address] Mar, [facility] [address] [id number] [address] [place] [address], [place] [address] Mar, [facility] [address] [id number] [address] [place] [address], [place] [address] Mar, [facility] [address] [id number] [address] [place] [address], [place] [address] Feb, [facility] [address] [id number] [address] [place] [address], [place] [address] Feb, [facility] [address] [id number] [address] [place] [address], [place] [address] Feb, [facility] [address] [id number] [address] [place] [address], [place] [address] Feb, [facility] [address] [id number] [address] [place] [address], [place] [address] Jan, [facility] [address] [id number] [address] [place] [address], [place] [address] Jan, [facility] [address] [id number] [address] [place] [address], [place] [address] Jan, [facility] [address] [id number] [facility] [place] [address] Jan, [facility] [address] [id number] [address] [place] [address], [place] [address] Jan, [facility] [address] [id number] [address] [place] [address], [place] [address] Jan, [facility] [address] [id number] [address] [place] [address], [place] [address] Dec, [facility] [address] [id number] [address] [place] [address], [place] [address] Dec, [facility] [address] [id number] [address] [place] [address], [place] [address] Nov, [facility] [address] [id number] [address] [place] [address], [place] [address] Nov, [facility] [address] [id number] [address] [place] [address], [place] [address] Nov, [facility] [address] [id number] [address] [place] [address], [place] [address] Nov, [facility] [address] [id number] [address] [place] [address], [place] [address] Nov, [facility] [address] [id number] [address] [place] [address], [place] [address] Nov, [facility] [address] [id number] [address] [place] [address], [place] [address] Sep, [facility] [address] [id number] [address] [place] [address], [place] [address] Sep, [facility] [address] [id number] [address] [place] [address], [place] [address] Sep, [facility] [address] [id number] [address] [place] [address], [place] [address] Sep, [facility] [address] [id number] [address] [place] [address], [place] [address] Aug, [facility] [address] [id number] [address] [place] [address], [place] [address] Aug, [facility] [address] [id number] [address] [place] [address], [place] [address] Jul, [facility] [address] [id number] [address] [place] [address], [place] [address] Jul, [facility] [address] [id number] [address] [place] [address], [place] [address] Jun, [facility] [address] [id number] [address] [place] [address], [place] [address] Jun, [facility] [address] [id number] [address] [place] [address], [place] [address] Jun, [facility] [address] [id number] [address] [place] [address], [place] [address] Jun, [facility] [address] [id number] [address] [place] [address], [place] [address] May, [facility] [address] [id number] [address] [place] [address], [place] [address] May, [facility] [address] [id number] [address] [place] [address], [place] [address] May, [facility] [address] [id number] [address] [place] [address], [place] [address] May, [facility] [address] [id number] [address] [place] [address], [place] [address] May, [facility] [address] [id number] [address] [place] [address], [place] [address] May, [facility] [address] [id number] [address] [place] [address], [place] [address] Apr, [facility] [address] [id number] [address] [place] [address], [place] [address] Apr, [facility] [address] [id number] [address] [place] [address], [place] [address] Apr, [facility] [address] [id number] [address] [place] [address], [place] [address] Apr, [facility] [address] [id number] [address] [place] [address], [place] [address] Mar, [facility] [address] [id number] [address] [place] [address], [place] [address] Mar, [facility] [address] [id number] [address] [place] [address], [place] [address] Mar, [facility] [address] [id number] [address] [place] [address], [place] [address] Mar, [facility] [address] [id number] [address] [place] [address], [place] [address] Feb, [facility] [address] [id number] [place] [id number] Jan, [facility] [address] [id number] [address] [place] [address], [place] [address] Jan, [facility] [address] [id number] [address] [place] [address], [place] [address] Dec, [facility] [address] [id number] [address] [place] [address], [place] [address] Dec, [facility] [address] [id number] [address] [place] [address], [place] [address] Dec, [facility] [address] [id number] [place] [id number] Dec, [facility] [address] [id number] [address] [place] [address], [place] [address] Nov, [facility] [address] [id number] [address] [place] [address], [place] [address] 14 Nov, 2012 [facility] [address] [id number] [address] [place] [address], [place] [address] Nov, [facility] [address] [facility] [place] [id number] [address] [place] [address] Nov, [facility] [address] [facility] [place] [id number] [address] [place] [address] Nov, [facility] [address] [facility] [place] [id number] [address] [place] [address] October, [facility] [address] [facility] [place] [id number] [address] [place] [address] October, [facility] [address] [facility] [place] [id number] [address] [place] [address] Aug, [facility] [address] [facility] [place] [id number] [address] [place] [address] Nov, IMMUNIZATIONS No Known Immunizations SOCIAL HISTORY Never Assessed REASON FOR VISIT Refill request PLAN OF CARE VITAL SIGNS MEDICATIONS Medication Instructions Dosage Frequency Start Date End Date Duration S tatus Trintellix 20 mg TAKE 1 TABLET BY MOUTH ONCE DAILY Active RESULTS No Results PROCEDURES No Known [...] renal insufficiency Surgical History EGD- Esophagus stretching- ANNMAREI 2014 Surgical History gastric sleeve 03/2016 Hospitalization History gastric sleeve
--- OUTSIDE RECORDS SUMMARY | 2019-11-29 09:42 | XMS REPORT ---
Author Author Curt LEHMAN [facility] [employer] Address Unknown Phone Unavailable Care Team Providers Care Music Department Chair Name Role Phone JESUS ELHMAN Unavailable Allergies, Adverse Reactions, Alerts Substance Reaction Event Type Wheat throat swells Non Drug Allergy Egg White throat swells Non Drug Allergy Cows Milk throat swells Non Drug Allergy Peanuts throat swells Non Drug Allergy Tenerius [place] throat swells Non Drug Allergy [place] throat swells Non Drug Allergy Ragweed throat swells Non Drug Allergy Problems Problem Type Condition Code Onset Dates Condition Statu s Assessment Major depression F32.9 Active Problem Hyperlipemia E78.5 Active Assessment Major depressive disorder, recurrent, moderate F33.1 Active Problem Renal insufficiency N28.9 Active Problem Type II diabetes mellitus E11.9 Ac tive Problem Edema R60.9 Active Problem Insomnia G47.00 Active Problem Major depression F32.9 Active Problem Morbid obesity E66.01 Active Problem Benign essential hypertension I10 Active Medications Medication Code System Code Instructions Start Date End Date Status Dosage Atenolol [facility] [address]-38 100 MG Orally Once a day August 21, 2014 1 tablet by Oral route 1 time per day Lisinopril [facility] [address]-58 40 MG Orally Once a day August 21, 2014 1 Tablet by Oral route 1 time per day Singulair [facility] 02035090631 10 MG 1 Tablet b y Oral route 1 time per day take 1 tablet by mouth 1 time per day Flonase ND 0 50 mcg/actuation November 29, 2013 inhale 1 spray (50 mcg) in each nostril by intranasal route 2 times per day Tricor [facility] 71342101228 145 MG 1 tablet by Oral route 1 time per day [facility] Rexulti [facility] [address]-75 1 MG Orally Once a day Jun 19, 2015 1 tablet Meloxicam [facility] 56377250162 15 MG 1 take 1 t ablet by mouth 1 time per day Omeprazole NDC [address]-99 20 MG Orally Once a day 1 capsule Brintellix [facility] [address]-69 20 MG Orally Once a day for one w lac vieux November 18, 2014 1 tablet Flovent HFA [facility] [address]-36 110 mcg/actuation October 23, 2012 1-3 Puffs 1 time per day Victoza [facility] [address]-68 18 MG/3ML Subcutaneous Once a day 0.2 ml Furosemide [facility] [address]-51 20 MG Orally Once a day TAKE 1 tablet MetFORMIN HCl ER (MOD) [facility] [address]-91 1000 MG Orally tw ice a day January 08, 2015 1 tablet with evenin g meal Procedures Procedure Coding System Code Date Office Visit, Est Pt., Level 4 CPT-4 73624 Jun 19, 2015 Vital Signs Date/Time: Jun 19, 2015 Cardiac Monitoring Heart Rate 76 bpm Weight 461.0 lbs Height 72 in BMI 62.52 Index Blood Pressure Diastolic 90 mmHg Blood Pressure Systolic 150 mmHg Results No Known Results Summary Purpose eClinicalWorks Submission
--- OUTSIDE RECORDS SUMMARY | 2019-11-29 09:42 | XMS REPORT ---
Author Curt Hess [facility] eClinicalWorks Address Unknown Phone Unavailable Care Team Providers Care Hand Decorator Name Role Phone CHRIS DIAZ CP Unavailable [...]
--- OUTSIDE RECORDS SUMMARY | 2019-11-29 09:42 | XMS REPORT ---
Author Author Curt TRIMBLE [facility] eClinicalWorks Address Unknown Phone Unavailable Care Team Providers Care Malt House Loader Name Role Phone [facility] CP Unavailable Allergies No Known [...] System Code Date HEALTH PROMOTION CPT-4 S0280 Mar 05, 2015 Results No Known Results Summary Purpose eClinicalWorks Submission
--- OUTSIDE RECORDS SUMMARY | 2019-11-29 09:42 | XMS REPORT ---
Author Author Curt TRIMBLE [facility] eClinicalWorks Address Unknown Phone Unavailable Care Team Providers Care Massotherapist Name Role Phone [facility] CP Unavailable Allergies No Known Allergies [...] Medications Procedures Procedure Coding System Code Date PATIENT AND FAMILY SUPPORT CPT-4 S0280 Jun 132015 Results No Known Results Summary Purpose eClinicalWorks Submission
--- OUTSIDE RECORDS SUMMARY | 2019-11-29 09:42 | XMS REPORT ---
Author Author Curt TRIMBLE [facility] eClinicalWorks Address Unknown Phone Unavailable Care Team Providers Care Sausage Wrapper Name Role Phone [facility] CP Unavailable Allergies No Known [...] System Code Date HEALTH PROMOTION CPT-4 S0280 Jun 08, 2015 Results No Known Results Summary Purpose eClinicalWorks Submission
--- OUTSIDE RECORDS SUMMARY | 2019-11-29 09:43 | XMS REPORT ---
Author Author Curt REBOLLAR [facility] eClinicalWorks Address Unknown Phone Unavailable Care Team Providers Care Leather Tanner Name Role Phone QUINTIN REBOLLAR Unavailable Allergies [...]
--- OUTSIDE RECORDS SUMMARY | 2019-11-29 09:43 | XMS REPORT ---
Author Author Curt DIAZ [facility] Address [address] [place] [address] Care Team Providers Care Airplane First Officer Name Role Phone CHRIS DIAZ Unavailable PROBLEMS Type Condition ICD9-CM Code PDS90-GJ Code Onset Dates Condition S tatus SNOMED Code Problem Renal insufficiency N28.9 Active 320739150 Problem Callus of foot L84 Active 42397 1005 Problem Edema R60.9 Active 179902757 Problem Vitamin D deficiency E55.9 Active 40482886 Problem Anxiety F41.9 Active 95909895 Problem Acute bacterial conjunctivitis of left eye H10.32 Active 675402240 Problem Recurrent major depressive disorder, in partial remission F33.41 Active 64354697 Problem Severe episode of recurrent major depressive disorder, without psychotic features F33.2 Active 59293551 Problem Metabolic syndrome E88.81 Active 2 26074226 Problem Hyperlipemia E78.5 Active 5666462 4 Problem Type II diabetes mellitus E11.9 Acti ve 09161554 Problem Insomnia G47.00 Active 073378691 Problem Morbid obesity E66.01 Active 21590 6002 Problem Major depression F32.9 Active 370 530903 Problem Benign essential hypertension I10 Active 6689118 ALLERGIES Substance Reaction Event Type Date Status Egg White throat swells Non Drug Allergy Nov, Active Cows Milk throat swells Non Drug Allergy Nov, Active Wheat throat swells Non Drug Allergy Nov, Active Peanuts throat swells Non Drug Allergy Nov, Active Tenerius Universal throat swells Non Drug Allergy Nov, Active Cheyenne throat swells Non Drug Allergy Nov, Active Ragweed throat swells Non Drug Allergy Nov, Active ENCOUNTERS Encounter Location Date Diagnosis [facility] [address] [facility] [id number] [place] [id number] Sep, [facility] [address] [id number] [id number] Aug, [facility] [address] [id number][place] [id number] Aug, Irritable mood R45.4 [place] [address] [facility] [id number] [address] [place] [phone] Aug, [place] [id number] [place] [address] [id number] Jul, Benign essential hypertension I10 ; Rboert a R60.9 and Impacted cerumen of left ear H61.22 [place] [address] [facility] [id number] [address] [place] [phone] 14 Jul, 2017 Major depression F32.9 ; Rec urrent major depressive disorder, in partial remission F33.41 and Anxiety F41.9 [place] [address] [facility] [id number] [address] [place] [phone] Jun, Major depression F32.9 ; Rec urrent major depressive disorder, in partial remission F33.41 and Anxiety F41.[address] [place] [address] [id number], [place] [id number] Jun, Major depression F32.9 ; Morbid obesity E66.01 ; Irritable mood R45.4 ; Hand weakness R29.898 and Vitamin D deficiency E55.[address] [facility] [address] [id number] [id number] Jun, [facility] [address] [id number], [place] [id number] May, Major depression F32.9 [place] [address] [facility] [id number] [address] [place] [address] May, Major depression F32.[address] [facility] [address] [id number], [place] [id number] May, BMI 50.0-59.9, adult Z68.43 ; Major depr ession F32.9 ; Anxiety F41.9 ; Hypertrophic toenail L60.2 and Pain of left great toe M79.675 [facility] [address] [id number], [place] [id number] May, Recurrent major depressive disorder, in partial remission F33.41 [facility] [address] [facility] [id number] [address] [place] [phone] Apr, [facility] [address] [id number], [place] [id number] Apr, [facility] [address] [facility] [id number] [address] [place] [phone] Apr, Major depression F32.9 [facility] [id number] [place] [address] [id number] Apr, Severe episode of recurrent major depres sive disorder, without psychotic features F33.2 ; Anxiety F41.[address] [facility] [id number] [place] [address] [id number] Apr, [facility] [address] [facility] [id number] [address] [place] [address] Apr, [facility] [address] [id number] [place] [address] [id number] Apr, [facility] [address] [id number], [place] [id number] Mar, [facility] [address] [id number] [place] [address] [id number] Mar, Allergic conjunctivitis of both eyes H10 .13 [facility] [address] [facility] [id number] [address] [place] [phone] Mar, Major depression F32.9 [facility] [address] [id number], [place] [id number] Mar, Metabolic syndrome E88.81 ; History of g astric bypass Z98.890 ; Benign essential hypertension I10 and Allergic conjunctivitis of both eyes H10.13 [facility] [address] [facility] [id number] [address] [place] [address] Mar, Major depression F32.9 [facility] [id number] [place] [address] [id number] Feb, [facility] [address] [facility] [id number] [address] [place] [address] Feb, Major depression F32.9 [facility] [id number] [place] [address] [id number] Feb, Subacute maxillary sinusitis J01.00 and Bronchitis J40 [place] [address] [facility] [id number] [address] [place] [phone] Feb, Major depressive disorder, r ecurrent, moderate F33.1 [facility] [address] [facility] [address] [id number] [place] [address] [id number] Jan, [facility] [address] [facility] [address] [id number] [place] [address] [id number] Jan, Acute non-recurrent maxillary sinusitis J01.00 and Skin tag L91.[id number] [place] [address] [id number] Jan, Cough R05 and Sinus congestion R09.81 [facility] [address] [facility] [address] [id number] [place] [address] [id number] Jan, [address] [id number] [place] [address] [id number] Jan, Benign essential hypertension I10 ; Hist ory of gastric bypass Z98.890 and Nausea and vomiting in adult R11.2 [facility] [address] [facility] [id number] [address] [place] [phone] Jan, Major depressive disorder, r ecurrent, moderate F33.1 [facility] [address] [facility] [id number] [address] [place] [phone] Dec, Insomnia G47.00 ; Recurrent major depressive disorder, in partial remission F33.41 and Morbid obesity E66.[address] [id number], [place] [id number] Dec, [facility] [address] [id number], [place] [id number] Dec, Chronic bacterial conjunctivitis of left eye H10.[address] [id number], [place] [id number] Nov, [address] [id number], [place] [id number] Nov, Dental examination Z01.[address] [id number], [place] [id number] Nov, Benign essential hypertension I10 ; Hist ory of gastric bypass Z98.890 and Nausea and vomiting in adult R11.2 [place] [address] [place] [id number] [place] [address] Nov, Major depressive disorder, r ecurrent, moderate F33.1 ; Generalized anxiety disorder F41.1 and Insomnia due to other mental disorder F51.05 [place] [address] [place] [phone] Nov, Recurrent major depressive d isorder, in partial remission F33.41 ; Insomnia G47.00 and Morbid obesity E66.01 [facility] [address] [facility] [id number] [place] [id number] October, Abscess of left arm L02.414 [place] [address] [place] [id number] [place] [address] October, Morbid obesity E66.01 ; Lida r depression F32.9 and Recurrent major depressive disorder, in partial remission F33.[address] [id number], [place] [id number] Sep, Benign essential hypertension I10 ; Morb id obesity E66.01 ; S/P gastric bypass Z98.84 ; Abscess L02.91 and Chronic bacterial conjunctivitis of left eye H10.[address] [id number], [place] [id number] Sep, Dental examination Z01.20 [place] [address] [place] [id number] [address] [place] [address] Sep, Morbid obesity E66.01 ; Lida r depression F32.9 and Recurrent major depressive disorder, in partial remission F33.41 [place] [address] [place] [id number] [address] [place] [address] Jul, [place] [address] [facility] [id number] [address] [place] [phone] Jul, Major depressive disorder, r ecurrent, moderate F33.1 [place] [address] [place] [id number] [address] [place] [phone] Jul, Major depressive disorder, r ecurrent, moderate F33.1 and Generalized anxiety disorder F41.[address] [place] [address] [id number], [place] [id number] Jul, Cough R05 [place] [address] [place] [address] Jul, Morbid obesity E66.01 ; Lida r depression F32.9 and Recurrent major depressive disorder, in partial remission F33.41 [facility] [address] [id number], [place] [id number] Jul, [place] [address] [id number], [place] [id number] Jul, [place] [address] [id number], [place] [id number] Jul, Gastroenteritis K52.9 and Cough R05 [place] [address] [id number], [place] [id number] Jun, Acute bacterial conjunctivitis of left e ye H10.32 [place] [address] [facility] [id number] [address] [place] [phone] Jun, [place] [address] [facility] [id number] [address] [place] [phone] Jun, Recurrent major depressive d isorder, in partial remission F33.41 [place] [address] [facility] [id number] [address] [place] [phone] May, Major depression F32.9 and M orbid obesity E66.01 [place] [address] [facility] [id number] [address] [place] [phone] May, [place] [id number] [place] [address] [id number] May, Thrush B37.0 [place] [address] [facility] [id number] [place] [phone] Apr, Major depressive disorder, r ecurrent, moderate F33.1 [place] [address] [address] Apr, Insomnia G47.00 ; Major depr ession F32.9 and Recurrent major depressive disorder, in partial remission F33.41 [place] [address] [address] Apr, [place] [address] [place] [id number] [address] [place] [phone] Apr, Major depression F32.9 and R ecurrent major depressive disorder, in partial remission F33.[address] [place] [id number] [place] [address] [id number] Mar, Benign essential hypertension I10 ; Morb id obesity E66.01 ; Impacted cerumen of both ears H61.23 ; Laceration of finger of right hand, initial encounter S61.219A and Encounter for immunization Z23 [place] [address] [facility] [id number] [address] [place] [phone] 17 Mar, 2016 [place] [address] [facility] [id number] [address] [place] [phone] 13 Mar, 2016 [place] [address] [facility] [id number] [place], [place] [address] Mar, [facility] [address] [id number], [place] [id number] Feb, Nausea R11.0 ; Blood in the stool K92.1 and Benign essential hypertension I10 [facility] [address] [facility] [id number] [address] [place] [address] Feb, Major depression F32.9 and R ecurrent major depressive disorder, in partial remission F33.41 [facility] [address] [id number], [place] [id number] Feb, [facility] [address] [id number], [place] [id number] Feb, Recurrent major depressive disorder, in partial remission F33.41 [facility] [address] [id number], [place] [id number] Jan, [facility] [id number] [place] [address] [id number] Jan, Benign essential hypertension I10 ; Robert a R60.9 and Hyperlipidemia, unspecified hyperlipidemia type E78.5 [facility] [address] [id number], [place] [id number] Jan, Recurrent major depressive disorder, in partial remission F33.41 [facility] [address] [facility] [id number] [place] [id number] Jan, [facility] [address] [id number], [place] [id number] Jan, [facility] [address] [id number], [place] [id number] Jan, [facility] [address] [facility] [id number] [address] [place] [phone] Jan, [facility] [address] [facility] [id number] [address] [place] [phone] Dec, [facility] [address] [facility] [id number] [address] [place] [address] Nov, [facility] [address] [facility] [id number] [address] [place] [phone] Nov, Major depression F32.9 [facility] [address] [facility] [id number] [address] [place] [address] Nov, [facility] [address] [facility] [id number] [address] [place] [phone] Nov, [facility] [address] [facility] [id number] [address] [place] [phone] Nov, Major depressive disorder, r ecurrent episode, mild F33.[address] [facility] [id number] [place] [address] [id number] Nov, [place] [id number] [place] [address] [id number] October, Left elbow pain M25.522 and Other season al allergic rhinitis J30.[id number] [place] [address] [id number] October, [facility] [address] [place] [id number] [address] [place] [address] October, Major depressive disorder, r ecurrent, moderate F33.1 [facility] [address] [facility] [id number] [address] [place] [phone] October, Major depression F32.9 [facility] [address] [facility] [id number] [address] [place] [address] Sep, [place] or callus L84 and Onych omycosis B35.1 [facility] [address] [facility] [id number] [address] [place] [address] Sep, Major depressive disorder, r ecurrent, moderate F33.1 [facility] [address] [facility] [id number] [address] [place] [phone] Sep, Major depression F32.9 [facility] [address] [facility] [id number] [address] [place] [phone] Sep, Moderate episode of recurren t major depressive disorder F33.[address] [id number], [place] [id number] Sep, Muscle strain T14.8 [facility] [address] [facility] [id number] [address] [place] [phone] Aug, Major depression F32.9 [facility] [address] [facility] [id number] [address] [place] [phone] Aug, Major depression F32.9 [facility] [address] [facility] [id number] [address] [place] [address] Jul, Morbid obesity E66.01 and Ma cora depression F32.9 [facility] [address] [facility] [id number] [address] [place] [address] Jul, Depression, major, recurrent , moderate F33.[address] [id number], [place] [id number] Jul, [facility] [address] [facility] [id number] [address] [place] [phone] Jul, [facility] [address] [facility] [id number] [address] [place] [address] Jul, Major depression F32.9 and M orbid obesity E66.[id number] [place] [address] [id number] Jul, Type II diabetes mellitus E11.9 ; Callus of foot L84 ; Benign essential hypertension I10 and Renal insufficiency N28.9 [facility] [address] [facility] [id number] [address] [place] [phone] 09 Jul, 2015 Depression, major, recurrent , moderate F33.1 [facility] [address] [facility] [id number] [address] [place] [phone] Jul, Major depression F32.9 [place] [address] [facility] [id number] [address] [place] [phone] Jul, [place] [address] [facility] [id number] [address] [place] [address] Jun, Major depression F32.9 [place] [address] [facility] [id number] [address] [place] [address] Jun, Major depressive disorder, r ecurrent, moderate F33.1 [place] [address] [facility] [id number] [address] [place] [id number] Jun, [place] [address] [place] [id number] [place] [phone] Jun, Major depressive disorder, r ecurrent, moderate F33.1 and Major depression F32.[address] [place] [id number] [place] [address] [id number] Jun, Type II diabetes mellitus E11.9 [place] [address] [place] [id number] [address] [place] [phone] Jun, Depression, major, recurrent , moderate F33.1 [place] [address] [facility] [id number] [address] [place] [phone] May, Major depressive disorder, r ecurrent, moderate F33.1 [place] [address] [place] [address] May, [place] [address] [id number], [place] [id number] May, Edema R60.9 [place] [address] [facility] [id number] [address] [place] [address] 17 May, 2015 Insomnia G47.00 and Major de pression F32.[address] [facility] [address] [id number], [place] [id number] 15 May, 2015 Morbid obesity E66.01 ; Edema R60.9 ; Sh ortness of breath R06.02 ; Benign essential hypertension I10 and Renal insufficiency N28.9 [facility] [address] [facility] [address] [id number], [place] [id number] May, Hyperlipemia 272.4 and Renal insufficien cy N28.9 [facility] [address] [facility] [id number] [address] [place] [phone] Apr, Major depression F32.9 [place] [address] [place] [id number] [address] [place] [address] Apr, [place] [address] [facility] [id number] [address] [place] [phone] Apr, Major depressive disorder, r ecurrent, moderate F33.1 [facility] [address] [place] [address] A[id number] [place] [address] [id number] Apr, Type II diabetes mellitus E11.9 ; Benign essential hypertension I10 ; Edema R60.9 and Renal insufficiency N28.9 [place] [address] [facility] [id number] [address] [place] [phone] Mar, Major depressive disorder, r ecurrent, moderate F33.1 [place] [address] [facility] [id number] [address] [place] [address] Mar, [place] [address] [facility] [id number] [address] [place] [id number] Mar, Major depression F32.9 [place] [id number] [facility] [id number] [place] [id number] Mar, Morbid obesity E66.01 ; Benign essential hypertension I10 and Type II diabetes mellitus E11.9 [place] [address] [id number] [address] [place] [phone] Feb, Major depressive disorder, r ecurrent, moderate F33.1 [place] [address] [id number] [address] [place] [phone] Feb, Major depressive disorder, r ecurrent episode, in partial or unspecified remission 296.35 ; Anxiety state, unspecified 300.00 and Morbid obesity 278.01 [place] [address] [id number] [address] [place] [id number] Feb, [place] [address] [id number] [id number] Feb, Vomiting 787.03 and Viral syndrome 079.9 9 [place] [address] [address] [place] [id number] [address] [place] [phone] Feb, Major depression, recurrent 296.30 ; Generalized anxiety disorder 300.02 and No condition on [place] II V71.[id number] [place] [id number] Feb, Skin tag 701.9 [place] [address] [address] [place] [id number] [address] [place] [id number] Feb, [place] [address] [address] [place] [id number] [address] [place] [phone] Jan, Depression, major, recurrent , moderate 296.[address] [id number] [id number] Jan, Nausea and vomiting 787.01 ; Rib pain on right side 786.50 and Fall on or from sidewalk curb E880.1 [place] [address] [facility] [id number] [address] [place] [phone] Jan, [place] [address] [address] [place] [id number] [address] [place] [phone] Jan, Major depressive disorder, r ecurrent episode, in partial or unspecified remission 296.35 and Anxiety state, unspecified 300.[id number] [place] [id number] Jan, [place] [address] [address] [place] [id number] [address] [place] [phone] Jan, Depression, major, recurrent , moderate 296.32 [place] [address] [address] [place] [id number] [address] [place] [address] Jan, Major depression, recurrent 296.30 ; No condition on Olean II V71.09 and No condition on axis III V71.09 [facility] [address] [id number] [id number] Jan, Drug-induced nausea and vomiting 787.01 [place] [address] [place] [id number] [address] [place] [address] Jan, Depression, major, recurrent , moderate 296.32 [place] [id number] [address] [place] [address] Dec, Depression, major, recurrent , moderate 296.32 [facility] [address] [id number] [id number] Dec, Morbid obesity 278.01 ; Metabolic syndro me 277.7 ; Hyperlipemia 272.4 ; Benign essential hypertension 401.1 ; Dietary counseling V65.3 ; Exercise counseling V65.41 and Inflamed skin tag 701.9 [place] [address] [place] [id number] [address] [place] [address] Dec, Depression, major, recurrent , moderate 296.32 [place] [address] [place] [id number] [address] [place] [address] Dec, [place] [id number] [address] [place] [address] Dec, Major depression, recurrent 296.30 ; Anxiety, generalized 300.02 and No condition on Olean II V71.09 [place] [address] [place] [id number] [address] [place] [address] Dec, Depression, major, recurrent , moderate 296.32 [place] [address] [address] Dec, Major depressive disorder, r ecurrent episode, moderate 296.32 [place] [address] [place] [id number] [address] [place] [address] Dec, Depression, major, recurrent , moderate 296.32 [place] [address] [address] Dec, Depression, major, recurrent , moderate 296.32 [place] [address] [address] Dec, Depression, major, recurrent , moderate 296.32 [place] [address] [address] Dec, Depression, major, recurrent , moderate 296.32 [place] [address] [address] Nov, Depression, major, recurrent , moderate 296.32 [place] [address] [address] Nov, Major depression 296.20 ; So cial phobia 300.23 and No condition on Olean II V71.09 [place] [address] [address] Nov, Depression, major, recurrent , moderate 296.32 [place] [address] [address] Nov, Major depressive disorder, r ecurrent episode, moderate 296.32 and Generalized anxiety disorder 300.02 [place] [address] [address] Nov, Depression, major, recurrent , moderate 296.32 [place] [address] [address] Nov, Depression, major, recurrent , moderate 296.32 [place] [address] [address] October, Generalized anxiety disorder 300.02 ; No condition on Olean II V71.09 and Major depressive disorder, recurrent 296.30 [place] [address] [place] [id number] [address] [place] [address] Sep, [place] [address] [place] [address] 13 Sep, 2014 [facility] [address] [id number] [address] [place] [address], [place] [address] 24 Aug, 2014 [facility] [address] [id number] [facility] [place] [address] 24 Aug, 2014 [facility] [address] [id number] [address] [place] [address], [place] [address] 23 Aug, 2014 [facility] [address] [id number] [address] [place] [address], [place] [address] 23 Aug, 2014 [facility] [address] [id number] [address] [place] [address], [place] [address] 20 Aug, 2014 [facility] [address] [id number] [address] [place] [address], [place] [address] 20 Aug, 2014 [facility] [address] [id number] [address] [place] [address], [place] [address] 20 Aug, 2014 [facility] [address] [id number] [address] [place] [address], [place] [address] 20 Aug, 2014 [facility] [address] [id number] [address] [place] [address], [place] [address] 13 Aug, 2014 [facility] [address] [id number] [address] [place] [address], [place] [address] 13 Aug, 2014 [facility] [address] [id number] [address] [place] [address], [place] [address] 13 Aug, 2014 [facility] [address] [id number] [address] [place] [address], [place] [address] 13 Aug, 2014 [facility] [address] [id number] [address] [place] [address], [place] [address] 12 Aug, 2014 [facility] [address] [id number] [address] [place] [address], [place] [address] 12 Aug, 2014 [facility] [address] [id number] [address] [place] [address], [place] [address] 10 Aug, 2014 [facility] [address] [id number] [address] [place] [address], [place] [address] Aug, [facility] [address] [id number] [address] [place] [address], [place] [address] Aug, [facility] [address] [id number] [address] [place] [address], [place] [address] Aug, [facility] [address] [id number] [address] [place] [address], [place] [address] Jul, [facility] [address] [id number] [address] [place] [address], [place] [address] Jul, 2014 [facility] [address] [id number] [address] [place] [address], [place] [address] Jul, [facility] [address] [id number] [address] [place] [address], [place] [address] Jul, [facility] [address] [id number] [address] [place] [address], [place] [address] Jul, [facility] [address] [id number] [address] [place] [address], [place] [address] Jul, [facility] [address] [id number] [address] [place] [address], [place] [address] Jun, [facility] [address] [id number] [address] [place] [address], [place] [address] Jun, [facility] [address] [id number] [address] [place] [address], [place] [address] Jun, [facility] [address] [id number] [address] [place] [address], [place] [address] Jun, [facility] [address] [id number] [address] [place] [address], [place] [address] Jun, [facility] [address] [id number] [address] [place] [address], [place] [address] Jun, [facility] [address] [id number] [address] [place] [address] [place] [address] Jun, [facility] [address] [id number] [address] [place] [address], [place] [address] Jun, [facility] [address] [id number] [address] [place] [address], [place] [address] Jun, [facility] [address] [id number] [address] [place] [address], [place] [address] Jun, [facility] [address] [id number] [address] [place] [address], [place] [address] Jun, [facility] [address] [id number] [address] [place] [address], [place] [address] Jun, [facility] [address] [id number] [place] [id number] Jun, [facility] [address] [id number] [address] [place] [address], [place] [address] Jun, [facility] [address] [id number] [address] [place] [address], [place] [address] Jun, [facility] [address] [id number] [address] [place] [address], [place] [address] Jun, [facility] [address] [id number] [address] [place] [address], [place] [address] May, [facility] [address] [id number] [address] [place] [address], [place] [address] May, [facility] [address] [id number] [address] [place] [address], [place] [address] May, [facility] [address] [id number] [address] [place] [address], [place] [address] May, [facility] [address] [id number] [address] [place] [address], [place] [address] Apr, [facility] [address] [id number] [address] [place] [address], [place] [address] Apr, [facility] [address] [id number] [address] [place] [address], [place] [address] 17 Apr, 2014 [facility] [address] [id number] [address] [place] [address], [place] [address] Apr, [facility] [address] [id number] [address] [place] [address], [place] [address] Apr, [facility] [address] [id number] [address] [place] [address], [place] [address] Apr, [facility] [address] [id number] [address] [place] [address], [place] [address] Apr, [facility] [address] [id number] [address] [place] [address], [place] [address] Apr, [facility] [address] [id number] [address] [place] [address], [place] [address] Apr, [facility] [address] [id number] [address] [place] [address], [place] [address] Apr, [facility] [address] [id number] [address] [place] [address], [place] [address] Apr, [facility] [address] [id number] [address] [place] [address], [place] [address] Apr, [facility] [address] [id number] [address] [place] [address], [place] [address] Apr, [facility] [address] [id number] [address] [place] [address], [place] [address] Apr, [facility] [address] [id number] [address] [place] [address], [place] [address] Apr, [facility] [address] [id number] [address] [place] [address], [place] [address] Apr, [facility] [address] [id number] [address] [place] [address], [place] [address] Apr, [facility] [address] [id number] [address] [place] [address], [place] [address] Apr, [facility] [address] [id number] [address] [place] [address], [place] [address] Apr, [facility] [address] [id number] [address] [place] [address], [place] [address] Apr, [facility] [address] [id number] [address] [place] [address], [place] [address] Mar, [facility] [address] [id number] [address] [place] [address], [place] [address] Mar, [facility] [address] [id number] [address] [place] [address], [place] [address] Mar, [facility] [address] [id number] [address] [place] [address], [place] [address] Mar, [facility] [address] [id number] [address] [place] [address], [place] [address] Mar, [facility] [address] [id number] [address] [place] [address], [place] [address] Mar, [facility] [address] [id number] [address] [place] [address], [place] [address] Mar, [facility] [address] [id number] [address] [place] [address], [place] [address] Mar, [facility] [address] [id number] [address] [place] [address], [place] [address] Mar, [facility] [address] [id number] [address] [place] [address], [place] [address] Mar, [facility] [address] [id number] [address] [place] [address], [place] [address] Feb, [facility] [address] [id number] [address] [place] [address], [place] [address] Feb, [facility] [address] [id number] [address] [place] [address], [place] [address] Feb, [facility] [address] [id number] [address] [place] [address] [place] [address] Feb, [facility] [address] [id number] [facility] [place] [address] Jan, [facility] [address] [id number] [address] [place] [address], [place] [address] Jan, [facility] [address] [id number] [address] [place] [address], [place] [address] Jan, [facility] [address] [id number] [address] [place] [address], [place] [address] Jan, [facility] [address] [id number] [address] [place] [address], [place] [address] Jan, [facility] [address] [id number] [address] [place] [address], [place] [address] Jan, [facility] [address] [id number] [address] [place] [address], [place] [address] Dec, [facility] [address] [id number] [address] [place] [address], [place] [address] Dec, [facility] [address] [id number] [address] [place] [address], [place] [address] Nov, [facility] [address] [id number] [address] [place] [address], [place] [address] Nov, [facility] [address] [id number] [address] [place] [address], [place] [address] Nov, [facility] [address] [id number] [address] [place] [address], [place] [address] Nov, [facility] [address] [id number] [address] [place] [address], [place] [address] Nov, [facility] [address] [id number] [address] [place] [address], [place] [address] Nov, [facility] [address] [id number] [address] [place] [address], [place] [address] Sep, [facility] [address] [id number] [address] [place] [address], [place] [address] Sep, [facility] [address] [id number] [address] [place] [address], [place] [address] Sep, [facility] [address] [id number] [address] [place] [address], [place] [address] Sep, [facility] [address] [id number] [address] [place] [address], [place] [address] Aug, [facility] [address] [id number] [address] [place] [address], [place] [address] Aug, [facility] [address] [id number] [address] [place] [address], [place] [address] Jul, [facility] [address] [id number] [address] [place] [address], [place] [address] Jul, [facility] [address] [id number] [address] [place] [address], [place] [address] Jun, [facility] [address] [id number] [address] [place] [address], [place] [address] Jun, [facility] [address] [id number] [address] [place] [address], [place] [address] Jun, [facility] [address] [id number] [address] [place] [address], [place] [address] Jun, [facility] [address] [id number] [address] [place] [address], [place] [address] May, [facility] [address] [id number] [address] [place] [address], [place] [address] May, [facility] [address] [id number] [address] [place] [address], [place] [address] May, [facility] [address] [id number] [address] [place] [address], [place] [address] May, [facility] [address] [id number] [place] [address] May, [facility] [address] [id number] [address] [place] [address], [place] [address] May, [facility] [address] [id number] [address] [place] [address], [place] [address] Apr, [facility] [address] [id number] [address] [place] [address], [place] [address] Apr, [facility] [address] [id number] [address] [place] [address] Apr, [facility] [address] [id number] [address] [place] [address], [place] [address] Apr, [facility] [address] [id number] [address] [place] [address], [place] [address] Mar, [facility] [address] [id number] [address] [place] [address] Mar, [facility] [address] [id number] [address] [place] [address], [place] [address] Mar, [facility] [address] [id number] [address] [place] [address] Mar, [facility] [address] [id number] [address] [place] [address] Feb, [facility] [place] [address] [id number] [place] [id number] Jan, [facility] [address] [id number] [address] [place] [address] Jan, [facility] [address] [id number] [address] [place] [address], [place] [address] Dec, [facility] [address] [id number] [address] [place] [address] Dec, [facility] [address] [id number] [address] [place] [address] Dec, [facility] [address] [id number] [place] [address] S [id number] Dec, 2012 [facility] [address] [facility] [id number] [address] [place] [address] Nov, [facility] [address] [facility] [id number] [address] [place] [address] Nov, [facility] [address] [facility] [id number] [address] [place] [address] Nov, [facility] [address] [facility] [id number] [address] [place] [address] Nov, [facility] [address] [facility] [id number] [address] [place] [address] Nov, [facility] [address] [facility] [id number] [address] [place] [address] October, [facility] [address] [facility] [id number] [address] [place] [address] October, [facility] [address] [facility] [id number] [address] [place] [address] Aug, [facility] [address] [facility] [id number] [address] [place] [address] Nov, IMMUNIZATIONS No Known Immunizations SOCIAL HISTORY Never Assessed REASON FOR VISIT Blood pressure, weight follow up. Also has a boil that is not completely healed. Tirso YEPEZ PLAN OF CARE Activity Details Follow Up 6 Months Reason:BP/weight f/ u ( Jan for labs) VITAL SIGNS Height 71.5 in 2016-12-02 Weight 386.3 lbs 2016-12-02 Temperature 98.8 degrees Fahrenheit 2016-12-02 Heart Rate 76 bpm 2016-12-02 Respiratory Rate 19 2016-12-02 BMI 53.12 kg/m2 2016-12-02 Blood pressure systolic 118 mmHg 2016-12-02 Blood pressure diastolic 68 mmHg 2016-12-02 MEDICATIONS Medication Instructions Dosage Frequency Start Date End Date Duration S chandni Montelukast Sodium 10 MG TAKE ONE TABLET BY MOUTH DAILY 90 Active Omeprazole 40 MG Orally Once a day 1 tablet 24h 0 da ys Active Flovent HFA 110 mcg/actuation 1-3 Puffs 1 time per day 1 4 Oct, 2012 Active Sulfamethoxazole-Trimethoprim 400-80 MG Orally Once a day 2 tablets 24h Active Trintellix 20 MG TAKE 1 TABLET BY MOUTH ONCE DAILY Active Lisinopril 40 mg Orally Once a day 1 tablet 24h Active Cetirizine HCl 10 mg Orally Once a day 1 tablet 24h Active Centrum - Active Vitamin D-3 1000 UNIT Orally Once a day 2 capsule 24h Active Trazodone HCl 50 mg Orally Once a day 1 tablet at bedtime 24h Nov Active Flonase 50 mcg/actuation inhale 1 spray (50 mcg) in each nostril by intranasal route 2 times per day Nov, Active Atenolol 100 mg Orally Once a day 1 tablet 24h Active Ondansetron HCl 4 MG Take 1 Tablet (4 mg ) by mouth every 8 hours as needed for Nausea/Emesis. Active RESULTS No Results PROCEDURES No Known [...]
--- OUTSIDE RECORDS SUMMARY | 2019-11-29 09:43 | XMS REPORT ---
Author Author Curt DIAZ [facility] Address [address] [place] [address] Care Team Providers Care Professional Architect Name Role Phone CHRIS DIAZ Unavailable PROBLEMS Type Condition ICD9-CM Code [id number] Code Onset Dates Condition S tatus SNOMED Code Problem Major depression F32.9 Active 370 579222 Problem Benign essential hypertension I10 Active 5467801 Problem Insomnia G47.00 Active 326611445 Assessment Blood in the stool K92.1 Feb, Active 093114613 Assessment Nausea R11.0 Feb, Active 950514 007 Problem Hyperlipemia E78.5 Active 4717010 4 Problem Recurrent major depressive disorder, in partial remission F33.41 Active 46858308 Problem Callus of foot L84 Active 25461 1005 Problem Type II diabetes mellitus E11.9 Acti ve 91199993 Problem Morbid obesity E66.01 Active 68026 6002 Problem Edema R60.9 Active 246228635 Problem Renal insufficiency N28.9 Active 851307423 ALLERGIES Substance Reaction Event Type Date Status Wheat throat swells Non Drug Allergy Feb, Active Egg White throat swells Non Drug Allergy Feb, Active Cows Milk throat swells Non Drug Allergy Feb, Active Peanuts throat swells Non Drug Allergy Feb, Active [place] throat swells Non Drug Allergy Feb, Active [place] throat swells Non Drug Allergy Feb, Active Ragweed throat swells Non Drug Allergy Feb, Active SOCIAL HISTORY No smoking Hx information available PLAN OF CARE VITAL SIGNS Height 71.5 in 2016-03-10 Weight 422.8 lbs 2016-03-10 Heart Rate 70 bpm 2016-03-10 Respiratory Rate 18 2016-03-10 BMI 58.14 kg/m2 2016-03-10 Blood pressure systolic 142 mmHg 2016-03-10 Blood pressure diastolic 90 mmHg 2016-03-10 MEDICATIONS Medication Instructions Dosage Frequency Start Date End Date Duration S chandni Montelukast Sodium 10 MG TAKE ONE TABLET BY MOUTH DAILY Active Flonase 50 mcg/actuation inhale 1 spray (50 mcg) in each nostril by intranasal route 2 times per day Nov, Active Omeprazole 20 MG 1 Tablet by Oral route 1 time per day Active Flovent HFA 110 mcg/actuation 1-3 Puffs 1 time per day 1 October, Active Zofran 8 MG Orally Once a day as needed for nausea 1 tablet 29 S , 2015 Active Lisinopril 40 mg 1 Tablet by Oral route 1 time per day Onc e a day Orally Active Rexulti 1 MG Orally Once a day 1 tablet 24h Jun, 30 days Active Trintellix 10 mg orally once a day 2 tablet 24h Nov, Active Atenolol 50 MG Orally Once a day 1 tablet 24h Active Cetirizine HCl 10 mg Orally Once a day 1 tablet 24h October, Active Meloxicam 15 MG Orally Once a day 1 tablet Once a day Orally 24h Active RESULTS Name Result Date Reference Range CBC 2016-03-10 WBC 8.4 3.4-10.8 RBC 4.82 4.14-5.80 Hemoglobin 13.2 12.6-17.7 Hematocrit 40.9 37.5-51.0 MCV 85 79-97 MCH 27.4 26.6-33.0 MCHC 32.3 31.5-35.7 RDW 15.2 12.3-15.4 Platelets 431 150-379 Neutrophils 70 Lymphs 18 Monocytes 8 Eos 4 Basos 0 Immature Cells Neutrophils (Absolute) 5.9 1.4-7.0 Lymphs (Absolute) 1.5 0.7-3.1 Monocytes(Absolute) 0.6 0.1-0.9 Eos (Absolute) 0.3 0.0-0.4 Baso (Absolute) 0.0 0.0-0.2 Immature Granulocytes 0 Immature Grans (Abs) 0.0 0.0-0.1 NRBC Hematology Comments: PROCEDURES Procedure Date Ordered Related Diagnosis Body Site ROUTINE VENIPUNCTURE 2016-03-10 N/A Office Visit, Est Pt., Level 3 Mar 10, 2016 VENIPUNCT, ROUTINE* Mar 10, 2016 LAB NOT BILLED BY [facility] Mar 10, 2016 IMMUNIZATIONS No Known Immunizations
--- OUTSIDE RECORDS SUMMARY | 2019-11-29 09:43 | XMS REPORT ---
Author Author Curt [facility]UL [facility] Organization [facility] Address [address] [place] [address] Care Team Providers Care Remittance Clerk Name Role Phone JOAQUINANGYPAULINO BARRY Unavailable PROBLEMS Type Condition ICD9-CM Code PXM38-AJ Code Onset Dates Condition S tatus SNOMED Code Problem Renal insufficiency N28.9 Active 904348593 Problem Callus of foot L84 Active 70393 1005 Problem Edema R60.9 Active 977945148 Problem Vitamin D deficiency E55.9 Active 47960174 Problem Anxiety F41.9 Active 96937180 Problem Acute bacterial conjunctivitis of left eye H10.32 Active 159721589 Problem Recurrent major depressive disorder, in partial remission F33.41 Active 69058109 Problem Severe episode of recurrent major depressive disorder, without psychotic features F33.2 Active 20517500 Problem Metabolic syndrome E88.81 Active 2 07767288 Problem Hyperlipemia E78.5 Active 9620939 4 Problem Type II diabetes mellitus E11.9 Acti ve 32328654 Problem Insomnia G47.00 Active 988680644 Problem Morbid obesity E66.01 Active 96289 6002 Problem Major depression F32.9 Active 370 730443 Problem Benign essential hypertension I10 Active 9775466 ALLERGIES Substance Reaction Event Type Date Status Monterey throat swells Non Drug Allergy Jan, Active Ragweed throat swells Non Drug Allergy Jan, Active Egg White throat swells Non Drug Allergy Jan, Active Cows Milk throat swells Non Drug Allergy Jan, Active Wheat throat swells Non Drug Allergy Jan, Active Peanuts throat swells Non Drug Allergy Jan, Active Tenerius Peggs throat swells Non Drug Allergy Jan, Active ENCOUNTERS Encounter Location Date Diagnosis [facility] [address] [facility] [place] [id number] [address] [place] [address] October, [address] [id number][place] [id number] Sep, [address] [id number], [place] [id number] Sep, [address] [id number], [place] [id number] Sep, Hospital discharge follow-up Z09 ; Aller gic rhinitis, unspecified seasonality, unspecified trigger J30.9 and Shortness of breath R06.[address] [id number][place] [id number] Sep, [id number] [place] [address] [id number] Aug, Irritable mood R45.4 [place] [address] [place] [id number] [place] [phone] Aug, [address] [id number], [place] [id number] Jul, Benign essential hypertension I10 ; Robert a R60.9 and Impacted cerumen of left ear H61.22 [place] [address] [place] [id number] [place] [address] Jul, Major depression F32.9 ; Rec urrent major depressive disorder, in partial remission F33.41 and Anxiety F41.9 [place] [address] [place] [id number] [place] [address] Jun, Major depression F32.9 ; Rec urrent major depressive disorder, in partial remission F33.41 and Anxiety F41.[address] [id number], [place] [id number] Jun, Major depression F32.9 ; Morbid obesity E66.01 ; Irritable mood R45.4 ; Hand weakness R29.898 and Vitamin D deficiency E55.[address] [id number], [place] [id number] Jun, [facility] [address] [id number], [place] [id number] May, Major depression F32.9 [facility] [address] [facility] [place] [id number] [address] [place] [phone] May, Major depression F32.9 [facility] [address] [id number], [place] [id number] May, BMI 50.0-59.9, adult Z68.43 ; Major depr ession F32.9 ; Anxiety F41.9 ; Hypertrophic toenail L60.2 and Pain of left great toe M79.675 [facility] [address] [id number], [place] [id number] May, Recurrent major depressive disorder, in partial remission F33.41 [facility] [address] [facility] [place] [id number] [address] [place] [phone] Apr, [facility] [address] [address] [id number], [place] [id number] Apr, [facility] [address] [facility] [place] [id number] [address] [place] [phone] Apr, Major depression F32.9 [facility] [address] [id number], [place] [id number] Apr, Severe episode of recurrent major depres sive disorder, without psychotic features F33.2 ; Anxiety F41.9 and Insomnia G47.00 [facility] [address] [id number], [place] [id number] Apr, [facility] [address] [facility] [place] [id number] [address] [place] [phone] Apr, [facility] [address] [address] [id number], [place] [id number] Apr, [facility] [address] [id number], [place] [id number] Mar, [facility] [address] [address] [id number], [place] [id number] Mar, Allergic conjunctivitis of both eyes H10 .13 [facility] [address] [facility] [place] [id number] [address] [place] [address] Mar, Major depression F32.9 [facility] [address] [id number], [place] [id number] Mar, Metabolic syndrome E88.81 ; History of g astric bypass Z98.890 ; Benign essential hypertension I10 and Allergic conjunctivitis of both eyes H10.13 [facility] [address] [facility] [place] [id number] [address] [place] [phone] Mar, Major depression F32.9 [facility] [address] [id number], [place] [id number] Feb, [facility] [address] [facility] [place] [id number] [address] [place] [phone] Feb, Major depression F32.9 [facility] [address] [id number], [place] [id number] Feb, Subacute maxillary sinusitis J01.00 and Bronchitis J40 [place] [address] [facility] [place] [id number] [address] [place] [id number] 06 Feb, 2017 Major depressive disorder, r ecurrent, moderate F33.1 [facility] [address] [id number], [place] [id number] Jan, [facility] [address] [address] [id number], [place] [id number] Jan, Acute non-recurrent maxillary sinusitis J01.00 and Skin tag L91.8 [facility] [address] [id number], [place] [id number] Jan, Cough R05 and Sinus congestion R09.81 [facility] [address] [id number], [place] [id number] Jan, [facility] [id number] [place] [address] [id number] Jan, Benign essential hypertension I10 ; Hist ory of gastric bypass Z98.890 and Nausea and vomiting in adult R11.2 [place] [address] [place] [address] Jan, Major depressive disorder, r ecurrent, moderate F33.1 [place] [address] [place] [id number] [address] [place] [address] Dec, Insomnia G47.00 ; Recurrent major depressive disorder, in partial remission F33.41 and Morbid obesity E66.[address] [id number], [place] [id number] Dec, [address] [id number], [place] [id number] Dec, Chronic bacterial conjunctivitis of left eye H10.[address] [id number] [place] [address] [id number] Nov, [address] [id number], [place] [id number] Nov, Dental examination Z01.[id number] [place] [address] [id number] Nov, Benign essential hypertension I10 ; Hist ory of gastric bypass Z98.890 and Nausea and vomiting in adult R11.2 [place] [address] [place] [id number] [address] [place] [phone] Nov, Major depressive disorder, r ecurrent, moderate F33.1 ; Generalized anxiety disorder F41.1 and Insomnia due to other mental disorder F51.05 [place] [address] [place] [id number] [address] [place] [phone] Nov, Recurrent major depressive d isorder, in partial remission F33.41 ; Insomnia G47.00 and Morbid obesity E66.01 [facility] [address] [id number] [place] [id number] October, Abscess of left arm L02.414 [place] [address] [facility] [place] [id number] [address] [place] [address] October, Morbid obesity E66.01 ; Lida r depression F32.9 and Recurrent major depressive disorder, in partial remission F33.41 [facility] [address] [id number], [place] [id number] Sep, Benign essential hypertension I10 ; Morb id obesity E66.01 ; S/P gastric bypass Z98.84 ; Abscess L02.91 and Chronic bacterial conjunctivitis of left eye H10.[address] [id number], [place] [id number] Sep, Dental examination Z01.20 [place] [address] [facility] [place] [id number] [address] [place] [address] Sep, Morbid obesity E66.01 ; Lida r depression F32.9 and Recurrent major depressive disorder, in partial remission F33.41 [place] [address] [place] [phone] Jul, [place] [address] [facility] [place] [id number] [address] [place] [address] Jul, Major depressive disorder, r ecurrent, moderate F33.1 [place] [address] [place] [id number] [address] [place] [address] Jul, Major depressive disorder, r ecurrent, moderate F33.1 and Generalized anxiety disorder F41.[address] [id number], [place] [id number] Jul, Cough R05 [place] [address] [facility] [place] [id number] [address] [place] [id number] 16 Jul, 2016 Morbid obesity E66.01 ; Lida r depression F32.9 and Recurrent major depressive disorder, in partial remission F33.41 [facility] [address] [id number], [place] [id number] 08 Jul, [address] [id number], [place] [id number] Jul, [facility] [address] [id number], [place] [id number] Jul, Gastroenteritis K52.9 and Cough R05 [facility] [address] [facility] [address] [id number], [place] [id number] Jun, Acute bacterial conjunctivitis of left e ye H10.32 [place] [address] [facility] [place] [id number] [address] [place] [phone] Jun, [place] [address] [facility] [place] [id number] [address] [place] [phone] Jun, Recurrent major depressive d isorder, in partial remission F33.41 [place] [address] [facility] [place] [id number] [address] [place] [phone] May, Major depression F32.9 and M orbid obesity E66.01 [place] [address] [facility] [place] [id number] [address] [place] [address] May, [address] [id number] [place] [address] [id number] May, Thrush B37.0 [place] [address] [facility] [place] [id number] [address] [place] [phone] Apr, Major depressive disorder, r ecurrent, moderate F33.1 [place] [address] [facility] [place] [id number] [address] [place] [address] Apr, Insomnia G47.00 ; Major depr ession F32.9 and Recurrent major depressive disorder, in partial remission F33.41 [place] [address] [facility] [place] [id number] [address] [place] [phone] Apr, [place] [address] [facility] [place] [id number] [address] [place] [id number] 02 Apr, 2016 Major depression F32.9 and R ecurrent major depressive disorder, in partial remission F33.41 [place] [address] [facility] [address] [id number], [place] [id number] Mar, Benign essential hypertension I10 ; Morb id obesity E66.01 ; Impacted cerumen of both ears H61.23 ; Laceration of finger of right hand, initial encounter S61.219A and Encounter for immunization Z23 [facility] [address] [facility] [place] [id number] [address] [place] [id number] 17 Mar, 2016 [facility] [address] [facility] [place] [id number] [address] [place] [phone] 13 Mar, 2016 [facility] [address] [facility] [place] [id number] [address] [place] [address] Mar, [address] [place] [address] [id number] [place] [address] [id number] Feb, Nausea R11.0 ; Blood in the stool K92.1 and Benign essential hypertension I10 [facility] [address] [facility] [place] [id number] [address] [place] [phone] Feb, Major depression F32.9 and R ecurrent major depressive disorder, in partial remission F33.41 [facility] [address] [id number], [place] [id number] Feb, [facility] [address] [id number], [place] [id number] Feb, Recurrent major depressive disorder, in partial remission F33.[address] [facility] [address] [id number], [place] [id number] Jan, [facility] [address] [id number], [place] [id number] Jan, Benign essential hypertension I10 ; Robert a R60.9 and Hyperlipidemia, unspecified hyperlipidemia type E78.5 [facility] [address] [id number], [place] [id number] Jan, Recurrent major depressive disorder, in partial remission F33.41 [facility] [address] [id number] [place] S [id number] Jan, [facility] [address] [id number], [place] [id number] Jan, [facility] [id number] [place] [address] [id number] Jan, [facility] [address] [facility] [place] [id number] [address] [place] [phone] Jan, [facility] [address] [facility] [place] [id number] [address] [place] [phone] Dec, [facility] [address] [facility] [place] [id number] [address] [place] [phone] Nov, [facility] [address] [facility] [place] [id number] [address] [place] [phone] Nov, Major depression F32.9 [facility] [address] [facility] [place] [id number] [address] [place] [phone] Nov, [facility] [address] [facility] [place] [id number] [address] [place] [phone] Nov, [facility] [address] [facility] [place] [id number] [address] [place] [phone] Nov, Major depressive disorder, r ecurrent episode, mild F33.0 and Anxiety F41.9 [facility] [address] [place] [address] AVE [id number], [place] [id number] Nov, [address] [id number] [place] [address] [id number] October, Left elbow pain M25.522 and Other season al allergic rhinitis J30.2 [facility] [address] [id number], [place] [id number] October, [facility] [address] [facility] [place] [id number] [address] [place] [phone] October, Major depressive disorder, r ecurrent, moderate F33.1 [facility] [address] [facility] [place] [id number] [address] [place] [phone] October, Major depression F32.9 [facility] [address] [facility] [place] [id number] [address] [place] [phone] Sep, [place] or callus L84 and Onych omycosis B35.1 [facility] [address] [facility] [place] [id number] [address] [place] [phone] Sep, Major depressive disorder, r ecurrent, moderate F33.1 [facility] [address] [facility] [place] [id number] [address] [place] [phone] Sep, Major depression F32.9 [facility] [address] [facility] [place] [id number] [address] [place] [phone] Sep, Moderate episode of recurren t major depressive disorder F33.1 [facility] [address] [id number], [place] [id number] Sep, Muscle strain T14.8 [facility] [address] [facility] [place] [id number] [address] [place] [phone] Aug, Major depression F32.9 [facility] [address] [facility] [place] [id number] [address] [place] [phone] Aug, Major depression F32.9 [facility] [address] [facility] [place] [id number] [address] [place] [id number] Jul, Morbid obesity E66.01 and Ma cora depression F32.9 [facility] [address] [facility] [place] [id number] [address] [place] [phone] Jul, Depression, major, recurrent , moderate F33.1 [facility] [address] [id number], [place] [id number] Jul, [facility] [address] [facility] [place] [id number] [address] [place] [id number] Jul, [facility] [address] [facility] [place] [id number] [address] [place] [phone] Jul, Major depression F32.9 and M orbid obesity E66.01 [facility] [address] [id number], [place] [id number] 11 Jul, 2015 Type II diabetes mellitus E11.9 ; Callus of foot L84 ; Benign essential hypertension I10 and Renal insufficiency N28.9 [facility] [address] [facility] [place] [id number] [address] [place] [id number] 09 Jul, 2015 Depression, major, recurrent , moderate F33.1 [facility] [address] [facility] [place] [id number] [address] [place] [phone] Jul, Major depression F32.9 [facility] [address] [facility] [place] [id number] [address] [place] [phone] Jul, [place] [address] [facility] [place] [id number] [address] [place] [phone] Jun, Major depression F32.9 [place] [address] [facility] [place] [id number] [address] [place] [phone] Jun, Major depressive disorder, r ecurrent, moderate F33.1 [place] [address] [facility] [place] [id number] [address] [place] [phone] Jun, [place] [address] [facility] [place] [id number] [address] [place] [phone] Jun, Major depressive disorder, r ecurrent, moderate F33.1 and Major depression F32.[address] [id number], [place] [id number] Jun, Type II diabetes mellitus E11.9 [facility] [address] [id number] [address] [place] [phone] Jun, Depression, major, recurrent , moderate F33.1 [place] [address] [facility] [place] [place] [id number] [address] [place] [phone] May, Major depressive disorder, r ecurrent, moderate F33.1 [place] [address] [facility] [place] [id number] [address] [place] [phone] May, [place] [address] [id number], [place] [id number] May, Edema R60.9 [facility] [address] [facility] [place] [place] [id number] [address] [place] [address] May, Insomnia G47.00 and Major de pression F32.[address] [id number], [place] [id number] 15 May, 2015 Morbid obesity E66.01 ; Edema R60.9 ; Sh ortness of breath R06.02 ; Benign essential hypertension I10 and Renal insufficiency N28.[address] [id number], [place] [id number] May, Hyperlipemia 272.4 and Renal insufficien cy N28.9 [place] [address] [place] [id number] [address] [place] [phone] Apr, Major depression F32.9 [place] [address] [place] [id number] [address] [place] [phone] Apr, [place] [address] [facility] [place] [place] [id number] [address] [place] [phone] Apr, Major depressive disorder, r ecurrent, moderate F33.[address] [id number], [place] [id number] Apr, Type II diabetes mellitus E11.9 ; Benign essential hypertension I10 ; Edema R60.9 and Renal insufficiency N28.9 [facility] [address] [facility] [place] [place] [id number] [address] [place] [phone] Mar, Major depressive disorder, r ecurrent, moderate F33.1 [place] [address] [facility] [place] [id number] [address] [place] [phone] Mar, [place] [address] [address] [facility] [place] [id number] [address] [place] [id number] Mar, Major depression F32.[id number] [place] [id number] Mar, Morbid obesity E66.01 ; Benign essential hypertension I10 and Type II diabetes mellitus E11.9 [facility] [address] [facility] [place] [id number] [address] [place] [phone] Feb, Major depressive disorder, r ecurrent, moderate F33.1 [facility] [address] [facility] [place] [id number] [address] [place] [id number] Feb, Major depressive disorder, r ecurrent episode, in partial or unspecified remission 296.35 ; Anxiety state, unspecified 300.00 and Morbid obesity 278.01 [facility] [address] [facility] [place] [id number] [address] [place] [phone] Feb, [place] [id number] [place] [id number] Feb, Vomiting 787.03 and Viral syndrome 079.9 9 [place] [id number] [address] [place] [id number] Feb, Major depression, recurrent 296.30 ; Generalized anxiety disorder 300.02 and No condition on [place] V71.[address] [place] [id number] [place] [id number] Feb, Skin tag 701.9 [facility] [address] [facility] [place] [id number] [address] [place] [id number] Feb, [facility] [address] [place] [id number] [address] [place] [phone] Jan, Depression, major, recurrent , moderate 296.32 [facility] [id number] [place] [id number] Jan, Nausea and vomiting 787.01 ; Rib pain on right side 786.50 and Fall on or from sidewalk curb E880.1 [facility] [address] [facility] [place] [id number] [address] [place] [id number] Jan, [facility] [address] [place] [id number] [address] [place] [address] Jan, Major depressive disorder, r ecurrent episode, in partial or unspecified remission 296.35 and Anxiety state, unspecified 300.00 [facility] [address] [id number] [id number] Jan, [facility] [address] [facility] [id number] [address] [place] [address] Jan, Depression, major, recurrent , moderate 296.32 [facility] [address] [place] [id number] [address] [place] [address] Jan, Major depression, recurrent 296.30 ; No condition on [place] II V71.09 and No condition on axis III V71.09 [facility] [id number] [id number] Jan, Drug-induced nausea and vomiting 787.01 [place] [id number] [address] [place] [address] Jan, Depression, major, recurrent , moderate 296.32 [facility] [address] [place] [id number] [address] [place] [address] Dec, Depression, major, recurrent , moderate 296.32 [facility] OROSCOBROWNLEE [address] [place] [address] AVE [id number] [id number] Dec, Morbid obesity 278.01 ; Metabolic syndro me 277.7 ; Hyperlipemia 272.4 ; Benign essential hypertension 401.1 ; Dietary counseling V65.3 ; Exercise counseling V65.41 and Inflamed skin tag 701.9 [facility] [address] [place] [id number] [place] [address] Dec, Depression, major, recurrent , moderate 296.32 [place] [id number] [address] [place] [phone] Dec, [facility] [address] [place] [address] [id number] [place] [phone] Dec, Major depression, recurrent 296.30 ; Anxiety, generalized 300.02 and No condition on [place] II V71.09 [facility] [address] [address] Dec, Depression, major, recurrent , moderate 296.32 [place] [address] [address] Dec, Major depressive disorder, r ecurrent episode, moderate 296.32 [place] [address] [address] Dec, Depression, major, recurrent , moderate 296.32 [place] [address] [address] Dec, Depression, major, recurrent , moderate 296.32 [place] [address] [place] [address] Dec, Depression, major, recurrent , moderate 296.32 [place] [address] [address] Dec, Depression, major, recurrent , moderate 296.32 [place] [address] [address] Nov, Depression, major, recurrent , moderate 296.32 [place] [address] [address] Nov, Major depression 296.20 ; So cial phobia 300.23 and No condition on [place] II V71.09 [place] [address] [address] [place] [id number] Nov, Depression, major, recurrent , moderate 296.32 [place] [address] [address] Nov, Major depressive disorder, r ecurrent episode, moderate 296.32 and Generalized anxiety disorder 300.02 [place] [address] [address] Nov, Depression, major, recurrent , moderate 296.32 [place] [address] [address] [place] [address] 04 Nov, 2014 Depression, major, recurrent , moderate 296.32 [facility] [address] [id number] [address] [place] [address] 07 Oct, 2014 Generalized anxiety disorder 300.02 ; No condition on [place] II V71.09 and Major depressive disorder, recurrent 296.30 [facility] [address] [id number] [address] [place] [address] 14 Sep, 2014 [facility] [address] [id number] [address] [place] [address] Sep, [facility] [address] [id number] [address] [place] [address] 24 Aug, 2014 [facility] [address] [id number] [address] [place] [address] 24 Aug, 2014 [facility] [address] [id number] [address] [place] [id number] 23 Aug, 2014 [facility] [address] [id number] [address] [place] [address] 23 Aug, 2014 [facility] [address] [id number] [address] [place] [id number] 20 Aug, 2014 [facility] [address] [id number] [address] [place] [address] 20 Aug, 2014 [facility] [address] [id number] [address] [place] [address] 20 Aug, 2014 [facility] [address] [id number] [address] [place] [id number] 20 Aug, 2014 [facility] [address] [id number] [address] [place] [address] 13 Aug, 2014 [facility] [address] [id number] [address] [place] [id number] 13 Aug, 2014 [facility] [address] [id number] [address] [place] [id number] 13 Aug, 2014 [facility] [address] [id number] [address] [place] [address], [place] [address] Aug, [facility] [place] [facility] [address] [id number] [address] [place] [address], [place] [address] Aug, [facility] [place] [facility] [address] [id number] [address] [place] [address], [place] [address] Aug, [facility] [place] [facility] [address] [id number] [address] [place] [address], [place] [address] Aug, [facility] [place] [facility] [address] [id number] [address] [place] [address], [place] [address] Aug, [facility] [place] [facility] [address] [id number] [address] [place] [address], [place] [address] Aug, [facility] [place] [facility] [address] [id number] [address] [place] [address], [place] [address] Aug, [facility] [place] [facility] [address] [id number] [address] [place] [address], [place] [address] Jul, [facility] [place] [facility] [address] [id number] [address] [place] [address], [place] [address] Jul, [facility] [place] [facility] [address] [id number] [address] [place] [address], [place] [address] Jul, [facility] [place] [facility] [address] [id number] [address] [place] [address], [place] [address] Jul, [facility] [place] [facility] [address] [id number] [address] [place] [address], [place] [address] Jul, [facility] [place] [facility] [address] [id number] [address] [place] [address], [place] [address] Jul, [facility] [place] [facility] [address] [id number] [address] [place] [address], [place] [address] Jun, [facility] [place] [facility] [address] [id number] [address] [place] [address], [place] [address] Jun, [facility] [place] [facility] [address] [id number] [address] [place] [address], [place] [address] Jun, [facility] [address] [id number] [address] [place] [address], [place] [address] Jun, [facility] [address] [id number] [address] [place] [address], [place] [address] Jun, [facility] [address] [id number] [address] [place] [address], [place] [address] Jun, [facility] [address] [id number] [address] [place] [address], [place] [address] Jun, [facility] [address] [id number] [address] [place] [address], [place] [address] Jun, [facility] [address] [id number] [address] [place] [address], [place] [address] Jun, [facility] [address] [id number] [address] [place] [address], [place] [address] Jun, [facility] [address] [id number] [address] [place] [address], [place] [address] Jun, [facility] [address] [id number] [address] [place] [address], [place] [address] Jun, [facility] [address] [id number] [place], [facility] [id number] Jun, [facility] [address] [id number] [address] [place] [address], [place] [address] Jun, [facility] [address] [id number] [address] [place] [address], [place] [address] Jun, [facility] [address] [id number] [address] [place] [address], [place] [address] Jun, [facility] [address] [id number] [address] [place] [address], [place] [address] May, [facility] [address] [id number] [address] [place] [address], [place] [address] May, [facility] [place] [facility] [address] [id number] [address] [place] [address], [place] [address] May, [facility] [place] [facility] [address] [id number] [address] [place] [address], [place] [address] May, [facility] [place] [facility] [address] [id number] [address] [place] [address], [place] [address] Apr, [facility] [place] [facility] [address] [id number] [address] [place] [address], [place] [address] Apr, [facility] [place] [facility] [address] [id number] [address] [place] [address], [place] [address] Apr, [facility] [place] [facility] [address] [id number] [address] [place] [address], [place] [address] Apr, [facility] [place] [facility] [address] [id number] [address] [place] [address], [place] [address] Apr, [facility] [place] [facility] [address] [id number] [address] [place] [address], [place] [address] Apr, [facility] [place] [facility] [address] [id number] [address] [place] [address], [place] [address] Apr, [facility] [place] [facility] [address] [id number] [address] [place] [address], [place] [address] Apr, [facility] [place] [facility] [address] [id number] [address] [place] [address], [place] [address] Apr, [facility] [place] [facility] [address] [id number] [address] [place] [address], [place] [address] Apr, [facility] [place] [facility] [address] [id number] [address] [place] [address], [place] [address] Apr, [facility] [place] [facility] [address] [id number] [address] [place] [address], [place] [address] Apr, [facility] [place] [facility] [address] [id number] [address] [place] [address], [place] [address] Apr, [facility] [place] [facility] [address] [id number] [address] [place] [address], [place] [address] Apr, [facility] [place] [facility] [address] [id number] [address] [place] [address], [place] [address] Apr, [facility] [place] [facility] [address] [id number] [address] [place] [address], [place] [address] Apr, [facility] [place] [facility] [address] [id number] [address] [place] [address], [place] [address] Apr, [facility] [place] [facility] [address] [id number] [address] [place] [address], [place] [address] Apr, [facility] [place] [facility] [address] [id number] [address] [place] [address], [place] [address] Apr, [facility] [place] [facility] [address] [id number] [address] [place] [address], [place] [address] Apr, [facility] [place] [facility] [address] [id number] [address] [place] [address], [place] [address] Mar, [facility] [place] [facility] [address] [id number] [address] [place] [address] Mar, [facility] [place] [facility] [address] [id number] [address] [place] [address], [place] [address] Mar, [facility] [place] [facility] [address] [id number] [address] [place] [address] Mar, [facility] [place] [facility] [address] [id number] [address] [place] [address] Mar, [facility] [place] [facility] [address] [id number] [address] [place] [address] Mar, [facility] [place] [facility] [address] [id number] [address] [place] [address], [place] [address] Mar, [facility] [place] [facility] [address] [id number] [address] [place] [address], [place] [address] Mar, [facility] [place] [facility] [address] [id number] [address] [place] [address] Mar, [facility] [place] [facility] [address] [id number] [address] [place] [address], [place] [address] Mar, [facility] [address] [id number] [address] [place] [address], [place] [address] Feb, [facility] [address] [id number] [address] [place] [address], [place] [address] Feb, [facility] [address] [id number] [address] [place] [address], [place] [address] Feb, [facility] [address] [id number] [address] [place] [address], [place] [address] Feb, [facility] [address] [id number] [address] [place] [address], [place] [address] Jan, [facility] [address] [id number] [address] [place] [address], [place] [address] Jan, [facility] [address] [id number] [address] [place] [address], [place] [address] Jan, [facility] [address] [id number] [address] [place] [address], [place] [address] Jan, [facility] [address] [id number] [address] [place] [address], [place] [address] Jan, [facility] [address] [id number] [address] [place] [address], [place] [address] Jan, [facility] [address] [id number] [address] [place] [address], [place] [address] Dec, [facility] [address] [id number] [address] [place] [address], [place] [address] Dec, [facility] [address] [id number] [address] [place] [address], [place] [address] Nov, [facility] [address] [id number] [address] [place] [address], [place] [address] Nov, [facility] [address] [id number] [address] [place] [address], [place] [address] Nov, [facility] [place] [facility] [address] [id number] [address] [place] [address], [place] [address] Nov, [facility] [address] [id number] [address] [place] [address], [place] [address] Nov, [facility] [address] [id number] [address] [place] [address], [place] [address] Nov, [facility] [address] [id number] [address] [place] [address], [place] [address] Sep, [facility] [address] [id number] [address] [place] [address], [place] [address] Sep, [facility] [address] [id number] [address] [place] [address], [place] [address] Sep, [facility] [address] [id number] [address] [place] [address], [place] [address] Sep, [facility] [address] [id number] [address] [place] [address], [place] [address] Aug, [facility] [address] [id number] [address] [place] [address], [place] [address] Aug, [facility] [address] [id number] [address] [place] [address], [place] [address] Jul, [facility] [address] [id number] [address] [place] [address], [place] [address] Jul, [facility] [address] [id number] [address] [place] [address], [place] [address] Jun, [facility] [address] [id number] [address] [place] [address], [place] [address] Jun, [facility] [address] [id number] [address] [place] [address], [place] [address] Jun, [facility] [address] [id number] [address] [place] [address], [place] [address] Jun, [facility] [address] [id number] [address] [place] [address] May, [facility] [address] [id number] [address] [place] [address], [place] [address] May, [facility] [address] [id number] [address] [place] [address] May, [facility] [address] [id number] [address] [place] [address] May, [facility] [address] [id number] [address] [place] [address] May, [facility] [address] [id number] [address] [place] [address], [place] [address] May, [facility] [address] [id number] [address] [place] [address] Apr, [facility] [address] [id number] [address] [place] [address] Apr, [facility] [address] [id number] [address] [place] [address], [place] [address] Apr, [facility] [address] [id number] [address] [place] [address] Apr, [facility] [address] [id number] [address] [place] [address] Mar, [facility] [address] [id number] [address] [place] [address] Mar, [facility] [address] [id number] [address] [place] [address] Mar, [facility] [address] [id number] [address] [place] [address] Mar, [facility] [address] [id number] [address] [place] [address] Feb, [facility] [address] [id number] [place] [id number] Jan, [facility] [address] [id number] [address] [place] [address] Jan, [facility] [address] [id number] [address] [place] [address] Dec, [facility] [address] [id number] [address] [place] [address] Dec, [facility] [address] [id number] [address] [place] [address] Dec, [facility] [address] [id number] [place] [id number] Dec, [facility] [address] [id number] [address] [place] [address] Nov, [facility] [address] [id number] [address] [place] [address] Nov, [facility] [address] [facility] [place] [place] [id number] [address] [place] [address] Nov, [facility] [address] [id number] [address] [place] [address] Nov, [facility] [address] [facility] [place] [id number] [address] [place] [address] Nov, [facility] [address] [id number] [address] [place] [address] October, [facility] [address] [id number] [address] [place] [address] October, [facility] [address] [id number] [address] [place] [address] Aug, [facility] [address] [id number] [address] [place] [address] Nov, IMMUNIZATIONS No Known Immunizations SOCIAL HISTORY Never Assessed REASON FOR VISIT cough/congestion been going on for 4 days geen elham reis ma PLAN OF CARE Activity Details Follow Up if not improving in clinic o r with PCP Reason:sinus congestion/cough VITAL SIGNS Height 71.5 in 2017-02-04 Weight 380.8 lbs 2017-02-04 Temperature 97.1 degrees Fahrenheit 2017-02-04 Heart Rate 79 bpm 2017-02-04 Respiratory Rate 18 2017-02-04 BMI 52.36 kg/m2 2017-02-04 Blood pressure systolic 120 mmHg 2017-02-04 Blood pressure diastolic 80 mmHg 2017-02-04 MEDICATIONS Medication Instructions Dosage Frequency Start Date End Date Duration S chandni Vitamin D-3 1000 UNIT Orally Once a day 2 capsule 24h Active Sudafed 60 mg Orally every 6 hrs 1 tablet as needed 6h Jan, 14 days Active Trazodone HCl 50 mg Orally Once a day 1 tablet at bedtime 24h Nov Active Ondansetron HCl 4 MG Take 1 Tablet (4 mg ) by mouth every 8 hours as needed for Nausea/Emesis. Active Montelukast Sodium 10 MG TAKE ONE TABLET BY MOUTH DAILY 90 Active Centrum - Active Omeprazole 40 MG Orally Once a day 1 tablet 24h 0 da ys Active Atenolol 100 mg Orally Once a day 1 tablet 24h Active Trintellix 20 mg TAKE 1 TABLET BY MOUTH ONCE DAILY Active Zofran 8 MG Orally Once a day 1 tablet 24h A ctive Flovent HFA 110 mcg/actuation inhalation once per day 1-3 Puffs 1 time per day October, 0 Active Lisinopril 40 mg Orally Once a day 1 tablet 24h Active Cetirizine HCl 10 mg Orally Once a day 1 tablet 24h 0 Active Flonase 50 mcg/actuation nasally once per day 1 spray (50 mc g) in each nostril by intranasal route 2 times per day Nov, 0 Active RESULTS No Results PROCEDURES No [...]
--- OUTSIDE RECORDS SUMMARY | 2019-11-29 09:43 | XMS REPORT ---
Author Author Curt REBOLLAR [facility] [employer] Address Unknown Phone Unavailable Care Team Providers Care Engineering Job Titles Name Role Phone QUINTIN REBOLLAR CP Unavailable Allergies, Adverse Reactions, Alerts Substance Reaction Event Type Wheat throat swells Non Drug Allergy Egg White throat swells Non Drug Allergy Cows Milk throat swells Non Drug Allergy Peanuts throat swells Non Drug Allergy [place] throat swells Non Drug Allergy [place] throat swells Non Drug Allergy Ragweed throat swells Non Drug Allergy Problems Problem Type Condition Code Onset Dates Condition Statu s Problem Hyperlipemia E78.5 Active Problem Insomnia G47.00 Active Problem Major depression F32.9 Active Assessment Recurrent major depressive disorder, in partial remiss ion F33.41 Active Assessment Major depression F32.9 Active Problem Callus of foot L84 Active Problem Edema R60.9 Active Problem Recurrent major depressive disorder, in partial remiss ion F33.41 Active Problem Morbid obesity E66.01 Active Problem Benign essential hypertension I10 Active Problem Renal insufficiency N28.9 Active Problem Type II diabetes mellitus E11.9 Ac tive Medications No Known Medications Procedures Procedure Coding System Code Date Psychotherapy, patient &/family, 30 minutes, established patient CPT-4 33016 Apr 13, 2016 Results No Known Results Summary Purpose eClinicalWorks Submission
--- OUTSIDE RECORDS SUMMARY | 2019-11-29 09:43 | XMS REPORT ---
Author Curt Hess [facility] eClinicalWorks Address Unknown Phone Unavailable Care Team Providers Care 911 Operator Name Role Phone CHRIS DIAZ CP Unavailable Allergies No Known Allergies Problems Problem Type Condition Code Onset Dates Condition Statu s Assessment Renal insufficiency N28.9 Active Problem Hyperlipemia E78.5 Active Assessment Hyperlipemia 272.4 Active Problem Renal insufficiency N28.9 Active Problem Type II diabetes mellitus E11.9 Ac tive Problem Edema R60.9 Active Problem Insomnia G47.00 Active Problem Major depression F32.9 Active Problem Morbid obesity E66.01 Active Problem Benign essential hypertension I10 Active Medications No Known Medications Procedures Procedure Coding System Code Date VENIPUNCT, ROUTINE* CPT-4 86145 May 25, 2015 COMPREHEN METABOLIC PANEL CPT-4 38259 May Results Name Result Date Reference Range Unit Abnormali ty Flag ROUTINE VENIPUNCTURE Summary Purpose eClinicalWorks Submission
--- OUTSIDE RECORDS SUMMARY | 2019-11-29 09:44 | XMS REPORT ---
Author Author Curt DIAZ [facility] [place] eClinicalWorks Address Unknown Phone Unavailable Care Team Providers Care Quality Internship Name Role Phone CHRIS DIAZ CP Unavailable [...]
--- OUTSIDE RECORDS SUMMARY | 2019-11-29 09:44 | XMS REPORT ---
Author Author Curt DIAZ [facility] Address [address] [place] [address] Care Team Providers Care Burnisher Name Role Phone JOE CHRIS Unavailable PROBLEMS Type Condition ICD9-CM Code EVA35-DY Code Onset Dates Condition S tatus SNOMED Code Problem Renal insufficiency N28.9 Active 409769839 Problem Callus of foot L84 Active 17641 1005 Problem Edema R60.9 Active 386799199 Problem Vitamin D deficiency E55.9 Active 57603986 Problem Anxiety F41.9 Active 67677731 Problem Acute bacterial conjunctivitis of left eye H10.32 Active 674573887 Problem Recurrent major depressive disorder, in partial remission F33.41 Active 00582465 Problem Severe episode of recurrent major depressive disorder, without psychotic features F33.2 Active 67871060 Problem Metabolic syndrome E88.81 Active 2 47974158 Problem Hyperlipemia E78.5 Active 6647595 4 Problem Type II diabetes mellitus E11.9 Acti ve 39485290 Problem Insomnia G47.00 Active 006322063 Problem Morbid obesity E66.01 Active 34516 6002 Problem Major depression F32.9 Active 370 461994 Problem Benign essential hypertension I10 Active 6899669 ALLERGIES No Information ENCOUNTERS Encounter Location Date Diagnosis [facility] [address] [id number] [place] [id number] Sep, [facility] [address] [id number] [place] [id number] Aug, [facility] [address] [id number] [place] [id number] Aug, Irritable mood R45.4 [facility] [address] [facility] [id number] 100[address] [place] [address] Aug, [facility] [address] [id number] [place] [id number] Jul, Benign essential hypertension I10 ; Robert a R60.9 and Impacted cerumen of left ear H61.22 [place] [address] [facility] [id number] [address] [place] [address] 14 Jul, 2017 Major depression F32.9 ; Rec urrent major depressive disorder, in partial remission F33.41 and Anxiety F41.9 [place] [address] [facility] [id number] [address] [place] [address] Jun, Major depression F32.9 ; Rec urrent major depressive disorder, in partial remission F33.41 and Anxiety F41.9 [facility] [address] [id number] [place] [address] [id number] Jun, Major depression F32.9 ; Morbid obesity E66.01 ; Irritable mood R45.4 ; Hand weakness R29.898 and Vitamin D deficiency E55.9 [facility] [address] [id number] [place] [id number] Jun, [facility] [id number] [place] [address] [id number] May, Major depression F32.9 [place] [address] [facility] [id number] [address] [place] [address] May, Major depression F32.9 [facility] [id number] [place] [address] [id number] May, BMI 50.0-59.9, adult Z68.43 ; Major depr ession F32.9 ; Anxiety F41.9 ; Hypertrophic toenail L60.2 and Pain of left great toe M79.[address] [facility] [address] [id number] [place] [id number] May, Recurrent major depressive disorder, in partial remission F33.41 [place] [address] [facility] [id number] [address] [place] [address] Apr, [facility] [address] [address] [id number] [place] [id number] Apr, [facility] [address] [facility] [id number] [address] [place] [address] Apr, Major depression F32.9 [facility] [address] [id number] [place] [id number] Apr, Severe episode of recurrent major depres sive disorder, without psychotic features F33.2 ; Anxiety F41.9 and Insomnia G47.00 [facility] [address] [address] [id number] [place] [id number] Apr, [facility] [address] [facility] [id number] [address] [place] [address] Apr, [facility] [address] [id number] [place] [id number] Apr, [facility] [address] [id number] [place] [id number] Mar, [facility] [address] [id number] [place] [id number] Mar, Allergic conjunctivitis of both eyes H10 .13 [facility] [address] [facility] [id number] [address] [place] [address] Mar, Major depression F32.9 [facility] [address] [id number] [place] [id number] Mar, Metabolic syndrome E88.81 ; History of g astric bypass Z98.890 ; Benign essential hypertension I10 and Allergic conjunctivitis of both eyes H10.13 [facility] [address] [facility] [id number] [address] [place] [address] Mar, Major depression F32.9 [facility] [address] [id number] [place], [place] [id number] Feb, [facility] [address] [facility] [id number] [address] [place] [address] Feb, Major depression F32.[address] [place] [address] [facility] [address] [id number] [place] [id number] Feb, Subacute maxillary sinusitis J01.00 and Bronchitis J40 [place] [address] [facility] [id number] [address] [place] [address] Feb, Major depressive disorder, r ecurrent, moderate F33.[address] [id number] [place] [id number] Jan, [id number] [place] [address] [id number] Jan, Acute non-recurrent maxillary sinusitis J01.00 and Skin tag L91.[address] [id number] [place] [address] [id number] Jan, Cough R05 and Sinus congestion R09.[address] [id number] [place] [id number] Jan, [address] [id number] [place] [address] [id number] Jan, Benign essential hypertension I10 ; Hist ory of gastric bypass Z98.890 and Nausea and vomiting in adult R11.2 [place] [address] [place] [id number] [address] [place] [address] Jan, Major depressive disorder, r ecurrent, moderate F33.1 [place] [address] [place] [id number] [address] [place] [address] Dec, Insomnia G47.00 ; Recurrent major depressive disorder, in partial remission F33.41 and Morbid obesity E66.01 [facility] [address] [facility] [address] [id number] [place] [id number] Dec, [facility] [address] [id number] [place] [address] [id number] Dec, Chronic bacterial conjunctivitis of left eye H10.402 [facility] [id number] [place] [id number] Nov, [address] [id number] [place] [id number] Nov, Dental examination Z01.[address] [id number] [place] [address] [id number] Nov, Benign essential hypertension I10 ; Hist ory of gastric bypass Z98.890 and Nausea and vomiting in adult R11.[address] [place] [address] 13 Nov, 2016 Major depressive disorder, r ecurrent, moderate F33.1 ; Generalized anxiety disorder F41.1 and Insomnia due to other mental disorder F51.05 [address] [place] [address] 12 Nov, 2016 Recurrent major depressive d isorder, in partial remission F33.41 ; Insomnia G47.00 and Morbid obesity E66.01 [facility] [address] [facility] [id number] [id number] October, Abscess of left arm L02.414 [place] [id number] [address] [place] [address] October, Morbid obesity E66.01 ; Lida r depression F32.9 and Recurrent major depressive disorder, in partial remission F33.41 [address] [id number] [place] [id number] Sep, Benign essential hypertension I10 ; Morb id obesity E66.01 ; S/P gastric bypass Z98.84 ; Abscess L02.91 and Chronic bacterial conjunctivitis of left eye H10.[address] [id number] [place] [address] [id number] Sep, Dental examination Z01.20 [place] [address] [place] [id number] [address] [place] [address] Sep, Morbid obesity E66.01 ; Lida r depression F32.9 and Recurrent major depressive disorder, in partial remission F33.41 [place] [address] [place] [id number] [address] [place] [address] Jul, [facility] [address] [facility] [id number] [address] [place] [address] Jul, Major depressive disorder, r ecurrent, moderate F33.1 [place] [address] [place] [id number] [address] [place] [address] Jul, Major depressive disorder, r ecurrent, moderate F33.1 and Generalized anxiety disorder F41.1 [facility] [id number] [place] [address] [id number] Jul, Cough R05 [place] [address] [place] [address] [address] Jul, Morbid obesity E66.01 ; Lida r depression F32.9 and Recurrent major depressive disorder, in partial remission F33.41 [facility] [id number] [place] [address] [id number] Jul, [facility] [id number] [place] [address] [id number] Jul, [facility] [id number] [place] [address] [id number] Jul, Gastroenteritis K52.9 and Cough R05 [facility] [id number] [place] [address] [id number] Jun, Acute bacterial conjunctivitis of left e ye H10.32 [place] [address] [place] [id number] [address] [place] [address] Jun, [place] [address] [place] [id number] [address] [place] [address] Jun, Recurrent major depressive d isorder, in partial remission F33.41 [place] [address] [place] [id number] [address] [place] [address] May, Major depression F32.9 and M orbid obesity E66.01 [place] [address] [facility] [id number] [address] [place] [address] May, [place] [address] [facility] [address] [id number] [place] [address] [id number] May, Thrush B37.0 [place] [address] [facility] [id number] [address] [place] [address] Apr, Major depressive disorder, r ecurrent, moderate F33.1 [place] [address] [facility] [id number] [address] [place] [address] Apr, Insomnia G47.00 ; Major depr ession F32.9 and Recurrent major depressive disorder, in partial remission F33.41 [place] [address] [facility] [id number] [address] [place] [address] Apr, [place] [address] [place] [id number] [address] [place] [address] 02 Apr, 2016 Major depression F32.9 and R ecurrent major depressive disorder, in partial remission F33.[id number] [place] [address] [id number] Mar, Benign essential hypertension I10 ; Morb id obesity E66.01 ; Impacted cerumen of both ears H61.23 ; Laceration of finger of right hand, initial encounter S61.219A and Encounter for immunization Z23 [place] [address] [facility] [id number] [address] [place] [phone] 17 Mar, 2016 [place] [address] [facility] [id number] [address] [place] [address] Mar, [place] [address] [facility] [id number] [address] [place] [address] Mar, [id number] [place] [address] [id number] 29 Feb, 2016 Nausea R11.0 ; Blood in the stool K92.1 and Benign essential hypertension I10 [place] [address] [facility] [id number] [address] [place] [address] Feb, Major depression F32.9 and R ecurrent major depressive disorder, in partial remission F33.41 [facility] [address] [address] [id number] [place] [id number] Feb, [facility] [address] [id number] [place] [id number] Feb, Recurrent major depressive disorder, in partial remission F33.41 [facility] [address] [id number] [place], [place] [id number] Jan, [facility] [address] [id number] [place] [id number] Jan, Benign essential hypertension I10 ; Robert a R60.9 and Hyperlipidemia, unspecified hyperlipidemia type E78.5 [facility] [address] [id number] [place] [id number] Jan, Recurrent major depressive disorder, in partial remission F33.41 [facility] [place] [address] [id number] [place] [id number] Jan, [facility] [address] [id number] [place] [id number] Jan, [facility] [address] [id number] [place], [place] [id number] Jan, [facility] [address] [facility] [id number] [address] [place] [phone] Jan, [facility] [address] [facility] [id number] [address] [place] [address] Dec, [facility] [address] [facility] [id number] [address] [place] [address] Nov, [facility] [address] [facility] [id number] [address] [place] [address] Nov, Major depression F32.9 [facility] [address] [facility] [id number] [address] [place] [address] Nov, [facility] [address] [facility] [id number] [address] [place] [address] Nov, [facility] [address] [facility] [id number] [address] [place] [address] Nov, Major depressive disorder, r ecurrent episode, mild F33.0 and Anxiety F41.9 [facility] [address] [id number] [place] [id number] Nov, [facility] [address] [id number] [place] [id number] October, Left elbow pain M25.522 and Other season al allergic rhinitis J30.2 [facility] [address] [facility] [id number] [place] [address] [id number] October, [facility] [address] [facility] [id number] [address] [place] [address] October, Major depressive disorder, r ecurrent, moderate F33.1 [place] [address] [facility] [id number] [address] [place] [address] October, Major depression F32.9 [place] [address] [facility] [id number] [address] [place] [address] Sep, Slinger or callus L84 and Onych omycosis B35.1 [place] [address] [facility] [id number] [address] [place] [address] Sep, Major depressive disorder, r ecurrent, moderate F33.1 [facility] [address] [facility] [id number] [address] [place] [address] Sep, Major depression F32.9 [place] [address] [facility] [id number] [address] [place] [address] 13 Sep, 2015 Moderate episode of recurren t major depressive disorder F33.1 [facility] [id number] [place] [address] [id number] Sep, Muscle strain T14.8 [facility] [address] [facility] [id number] [address] [place] [address] Aug, Major depression F32.9 [facility] [address] [facility] [id number] [address] [place] [address] Aug, Major depression F32.9 [facility] [address] [facility] [id number] [address] [place] [address] Jul, Morbid obesity E66.01 and Ma cora depression F32.9 [facility] [address] [facility] [id number] [address] [place] [address] Jul, Depression, major, recurrent , moderate F33.[address] [id number] [place] [id number] Jul, [facility] [address] [facility] [id number] [address] [place] [address] Jul, [facility] [address] [place] [id number] [address] [place] [address] Jul, Major depression F32.9 and M orbid obesity E66.[address] [id number] [place] [id number] Jul, Type II diabetes mellitus E11.9 ; Callus of foot L84 ; Benign essential hypertension I10 and Renal insufficiency N28.9 [facility] [address] [facility] [id number] [address] [place] [address] 09 Jul, 2015 Depression, major, recurrent , moderate F33.1 [facility] [address] [facility] [id number] [address] [place] [address] Jul, Major depression F32.9 [facility] [address] [facility] [id number] [address] [place] [address] Jul, [facility] [address] [facility] [id number] [address] [place] [address] Jun, Major depression F32.9 [facility] [address] [facility] [id number] [address] [place] [address] Jun, Major depressive disorder, r ecurrent, moderate F33.1 [facility] [address] [facility] [id number] [address] [place] [address] Jun, [place] [address] [facility] [id number] [address] [place], [place] [id number] Jun, Major depressive disorder, r ecurrent, moderate F33.1 and Major depression F32.[id number] [place] [address] [id number] Jun, Type II diabetes mellitus E11.9 [place] [address] [facility] [id number] [address] [place] [address] Jun, Depression, major, recurrent , moderate F33.1 [place] [address] [place] [id number] [address] [place] [address] May, Major depressive disorder, r ecurrent, moderate F33.1 [place] [id number] [place] [address] May, [id number] [place] [address] [id number] May, Edema R60.9 [place] [address] [place] [id number] [address] [place] [address] 17 May, 2015 Insomnia G47.00 and Major de pression F32.[id number] [place] [address] [id number] 15 May, 2015 Morbid obesity E66.01 ; Edema R60.9 ; Sh ortness of breath R06.02 ; Benign essential hypertension I10 and Renal insufficiency N28.[id number] [place] [address] [id number] 14 May, 2015 Hyperlipemia 272.4 and Renal insufficien cy N28.9 [place] [address] [facility] [id number] [address] [place] [address] Apr, Major depression F32.9 [place] [id number] [place] [address] Apr, [place] [address] [facility] [id number] [address] [place] [address] Apr, Major depressive disorder, r ecurrent, moderate F33.1 [facility] [address] [id number] [place] [id number] Apr, Type II diabetes mellitus E11.9 ; Benign essential hypertension I10 ; Edema R60.9 and Renal insufficiency N28.9 [place] [address] [facility] [id number] [address] [place] [address] Mar, Major depressive disorder, r ecurrent, moderate F33.1 [place] [address] [place] [id number] [address] [place] [address] Mar, [place] [address] [facility] [id number] [address] [place] [address] Mar, Major depression F32.9 [facility] [address] [place] [address] AVE [id number] [place] [id number] Mar, Morbid obesity E66.01 ; Benign essential hypertension I10 and Type II diabetes mellitus E11.9 [place] [address] [facility] [id number] [address] [place] [address] Feb, Major depressive disorder, r ecurrent, moderate F33.1 [place] [address] [place] [id number] [address] [place] [address] Feb, Major depressive disorder, r ecurrent episode, in partial or unspecified remission 296.35 ; Anxiety state, unspecified 300.00 and Morbid obesity 278.01 [place] [address] [facility] [id number] [address] [place] [address] Feb, [facility] [address] [id number] [place] [id number] Feb, Vomiting 787.03 and Viral syndrome 079.9 [address] [place] [address] [facility] [id number] [address] [place] [address] Feb, Major depression, recurrent 296.30 ; Generalized anxiety disorder 300.02 and No condition on [place] II V71.[address] [id number] [place] [id number] Feb, Skin tag 701.9 [facility] [address] [facility] [id number] [address] [place] [address] Feb, [facility] [address] [place] [id number] [address] [place] [address] Jan, Depression, major, recurrent , moderate 296.[address] [id number] [place] [id number] Jan, Nausea and vomiting 787.01 ; Rib pain on right side 786.50 and Fall on or from sidewalk curb E880.1 [facility] [address] [facility] [id number] [address] [place] [id number] Jan, [facility] [address] [place] [id number] [address] [place] [id number] Jan, Major depressive disorder, r ecurrent episode, in partial or unspecified remission 296.35 and Anxiety state, unspecified 300.[address] [id number] [place] [id number] Jan, [facility] [address] [facility] [id number] [address] [place] [id number] Jan, Depression, major, recurrent , moderate 296.32 [facility] [address] [facility] [id number] [address] [place] [id number] Jan, Major depression, recurrent 296.30 ; No condition on [place] II V71.09 and No condition on axis III V71.[address] [id number] [place] [id number] Jan, Drug-induced nausea and vomiting 787.01 [place] [address] [facility] [id number] [address] [place] [id number] Jan, Depression, major, recurrent , moderate 296.32 [facility] [address] [facility] [id number] [address] [place] [id number] Dec, Depression, major, recurrent , moderate 296.32 [facility] [address] [id number] [place] [id number] Dec, Morbid obesity 278.01 ; Metabolic syndro me 277.7 ; Hyperlipemia 272.4 ; Benign essential hypertension 401.1 ; Dietary counseling V65.3 ; Exercise counseling V65.41 and Inflamed skin tag 701.[address] [id number] [address] [place] [id number] Dec, Depression, major, recurrent , moderate 296.32 [place] [address] [id number] Dec, [address] [address] Dec, Major depression, recurrent 296.30 ; Anxiety, generalized 300.02 and No condition on [place] II V71.09 [place] [id number] [address] [place] [address] Dec, Depression, major, recurrent , moderate 296.32 [place] [address] [address] [place] [id number] [address] [place] [address] Dec, Major depressive disorder, r ecurrent episode, moderate 296.32 [id number] [place] [address] Dec, Depression, major, recurrent , moderate 296.[address] [id number] [address] [place] [address] Dec, Depression, major, recurrent , moderate 296.32 [place] [address] [place] [id number] [address] [place] [address] Dec, Depression, major, recurrent , moderate 296.32 [place] [id number] [address] [place] [address] Dec, Depression, major, recurrent , moderate 296.32 [facility] [address] [address] Nov, Depression, major, recurrent , moderate 296.32 [facility] [address] [address] Nov, Major depression 296.20 ; So cial phobia 300.23 and No condition on [place] II V71.09 [facility] [address] [address] Nov, Depression, major, recurrent , moderate 296.32 [place] [address] [address] Nov, Major depressive disorder, r ecurrent episode, moderate 296.32 and Generalized anxiety disorder 300.[address] [address] Nov, Depression, major, recurrent , moderate 296.32 [facility] [address] [address] Nov, Depression, major, recurrent , moderate 296.32 [place] [address] [address] October, Generalized anxiety disorder 300.02 ; No condition on [place] II V71.09 and Major depressive disorder, recurrent 296.30 [facility] [address] [address] Sep, [facility] [address] [address] Sep, [facility] [address] [address] Aug, [facility] [address] [address] Aug, [facility] [address] [address] 23 Aug, 2014 [facility] [address] [id number] [address] [place] [address], [place] [address] 23 Aug, 2014 [facility] [address] [id number] [address] [place] [address], [place] [address] 20 Aug, 2014 [facility] [place] [facility] [address] [id number] [address] [place] [address], [place] [address] 20 Aug, 2014 [facility] [place] [facility] [address] [id number] [address] [place] [address], [place] [address] 20 Aug, 2014 [facility] [place] [facility] [address] [id number] [address] [place] [address], [place] [address] 20 Aug, 2014 [facility] [place] [facility] [address] [id number] [address] [place] [address], [place] [address] 13 Aug, 2014 [facility] [place] [facility] [address] [id number] [address] [place] [address], [place] [address] 13 Aug, 2014 [facility] [place] [facility] [address] [id number] [address] [place] [address], [place] [address] 13 Aug, 2014 [facility] [address] [id number] [address] [place] [address], [place] [address] 13 Aug, 2014 [facility] [place] [facility] [address] [id number] [address] [place] [address], [place] [address] Aug, [facility] [place] [facility] [address] [id number] [address] [place] [address], [place] [address] Aug, [facility] [place] [facility] [address] [id number] [address] [place] [address], [place] [address] 10 Aug, 2014 [facility] [place] [facility] [address] [id number] [address] [place] [address], [place] [address] Aug, [facility] [place] [facility] [address] [id number] [address] [place] [address], [place] [address] 09 Aug, 2014 [facility] [place] [facility] [address] [id number] [address] [place] [address], [place] [address] Aug, [facility] [place] [facility] [address] [id number] [address] [place] [address], [place] [address] Jul, [facility] [address] [id number] [address] [place] [address], [place] [address] Jul, [facility] [address] [id number] [address] [place] [address], [place] [address] Jul, 2014 [facility] [address] [id number] [address] [place] [address], [place] [address] Jul, 2014 [facility] [address] [id number] [address] [place] [address], [place] [address] Jul, [facility] [address] [id number] [address] [place] [address], [place] [address] Jul, [facility] [address] [id number] [address] [place] [address], [place] [address] Jun, [facility] [address] [id number] [address] [place] [address], [place] [address] Jun, [facility] [address] [id number] [address] [place] [address], [place] [address] Jun, [facility] [address] [id number] [address] [place] [address], [place] [address] Jun, [facility] [address] [id number] [address] [place] [address], [place] [address] Jun, [facility] [address] [id number] [address] [place] [address], [place] [address] Jun, [facility] [address] [id number] [address] [place] [address], [place] [address] Jun, [facility] [place] [facility] [address] [id number] [address] [place] [address], [place] [address] Jun, [facility] [place] [facility] [address] [id number] [address] [place] [address], [place] [address] Jun, [facility] [place] [facility] [address] [id number] [address] [place] [address], [place] [address] Jun, [facility] [address] [id number] [address] [place] [address], [place] [address] Jun, [facility] [address] [id number] [address] [place] [address], [place] [address] Jun, [facility] [address] [id number] [place] [id number] Jun, [facility] [address] [id number] [address] [place] [address], [place] [address] Jun, [facility] [address] [id number] [address] [place] [address], [place] [address] Jun, [facility] [address] [id number] [address] [place] [address], [place] [address] Jun, [facility] [address] [id number] [address] [place] [address], [place] [address] May, [facility] [address] [id number] [address] [place] [address], [place] [address] May, [facility] [address] [id number] [address] [place] [address], [place] [address] May, [facility] [address] [id number] [address] [place] [address], [place] [address] May, [facility] [address] [id number] [address] [place] [address], [place] [address] Apr, [facility] [place] [facility] [address] [id number] [address] [place] [address], [place] [address] Apr, [facility] [place] [facility] [address] [id number] [address] [place] [address], [place] [address] Apr, [facility] [place] [facility] [address] [id number] [address] [place] [address], [place] [address] Apr, [facility] [place] [facility] [address] [id number] [address] [place] [address], [place] [address] Apr, [facility] [place] [facility] [address] [id number] [address] [place] [address] [place] [address] Apr, [facility] [place] [facility] [address] [id number] [address] [place] [address], [place] [address] Apr, [facility] [place] [facility] [address] [id number] [address] [place] [address], [place] [address] Apr, [facility] [place] [facility] [address] [id number] [address] [place] [address], [place] [address] Apr, [facility] [place] [facility] [address] [id number] [address] [place] [address], [place] [address] Apr, [facility] [place] [facility] [address] [id number] [address] [place] [address], [place] [address] Apr, [facility] [place] [facility] [address] [id number] [address] [place] [address], [place] [address] Apr, [facility] [place] [facility] [address] [id number] [address] [place] [address], [place] [address] Apr, [facility] [place] [facility] [address] [id number] [address] [place] [address], [place] [address] Apr, [facility] [place] [facility] [address] [id number] [address] [place] [address], [place] [address] Apr, [facility] [place] [facility] [address] [id number] [address] [place] [address], [place] [address] Apr, [facility] [place] [facility] [address] [id number] [address] [place] [address], [place] [address] Apr, [facility] [place] [facility] [address] [id number] [address] [place] [address] Apr, [facility] [place] [facility] [address] [id number] [address] [place] [address] Apr, [facility] [place] [facility] [address] [id number] [address] [place] [address], [place] [address] Apr, [facility] [place] [facility] [address] [id number] [address] [place] [address], [place] [address] Mar, [facility] [place] [facility] [address] [id number] [address] [place] [address], [place] [address] Mar, [facility] [place] [facility] [address] [id number] [address] [place] [address], [place] [address] Mar, [facility] [place] [facility] [address] [id number] [address] [place] [address], [place] [address] Mar, [facility] [place] [facility] [address] [id number] [address] [place] [address], [place] [address] Mar, [facility] [place] [facility] [address] [id number] [address] [place] [address], [place] [address] Mar, [facility] [place] [facility] [address] [id number] [address] [place] [address], [place] [address] Mar, [facility] [place] [facility] [address] [id number] [address] [place] [address], [place] [address] Mar, [facility] [place] [facility] [address] [id number] [address] [place] [address], [place] [address] Mar, [facility] [place] [facility] [address] [id number] [address] [place] [address], [place] [address] Mar, [facility] [place] [facility] [address] [id number] [address] [place] [address], [place] [address] Feb, [facility] [place] [facility] [address] [id number] [address] [place] [address], [place] [address] Feb, [facility] [place] [facility] [address] [id number] [address] [place] [address], [place] [address] Feb, [facility] [place] [facility] [address] [id number] [address] [place] [address], [place] [address] Feb, [facility] [place] [facility] [address] [id number] [address] [place] [address], [place] [address] Jan, [facility] [place] [facility] [address] [id number] [address] [place] [address], [place] [address] Jan, [facility] [place] [facility] [address] [id number] [address] [place] [address], [place] [address] Jan, [facility] [address] [id number] [facility] [place] [address] Jan, [facility] [place] [facility] [address] [id number] [address] [place] [address], [place] [address] Jan, [facility] [place] [facility] [address] [id number] [address] [place] [address], [place] [address] Jan, [facility] [place] [facility] [address] [id number] [address] [place] [address], [place] [address] Dec, [facility] [address] [id number] [address] [place] [address], [place] [address] Dec, [facility] [place] [facility] [address] [id number] [address] [place] [address], [place] [address] Nov, [facility] [place] [facility] [address] [id number] [address] [place] [address], [place] [address] Nov, [facility] [place] [facility] [address] [id number] [address] [place] [address], [place] [address] Nov, [facility] [place] [facility] [address] [id number] [address] [place] [address], [place] [address] Nov, [facility] [place] [facility] [address] [id number] [address] [place] [address], [place] [address] Nov, [facility] [place] [facility] [address] [id number] [address] [place] [address], [place] [address] Nov, [facility] [place] [facility] [address] [id number] [address] [place] [address], [place] [address] Sep, [facility] [place] [facility] [address] [id number] [address] [place] [address], [place] [address] Sep, [facility] [place] [facility] [address] [id number] [address] [place] [address], [place] [address] Sep, [facility] [place] [facility] [address] [id number] [address] [place] [address], [place] [address] Sep, [facility] [place] [facility] [address] [id number] [address] [place] [address] Aug, [facility] [address] [id number] [address] [place] [address], [place] [address] Aug, [facility] [address] [id number] [address] [place] [address], [place] [address] Jul, [facility] [address] [id number] [address] [place] [address], [place] [address] Jul, [facility] [address] [id number] [address] [place] [address], [place] [address] Jun, [facility] [address] [id number] [address] [place] [address], [place] [address] Jun, [facility] [address] [id number] [address] [place] [address], [place] [address] Jun, [facility] [address] [id number] [address] [place] [address], [place] [address] Jun, [facility] [address] [id number] [address] [place] [address], [place] [address] May, [facility] [address] [id number] [address] [place] [address], [place] [address] May, [facility] [address] [id number] [address] [place] [address], [place] [address] May, [facility] [address] [id number] [address] [place] [address], [place] [address] May, [facility] [address] [id number] [address] [place] [address], [place] [address] May, [facility] [address] [id number] [address] [place] [address], [place] [address] May, [facility] [address] [id number] [address] [place] [address], [place] [address] Apr, [facility] [address] [id number] [address] [place] [address], [place] [address] Apr, [facility] [address] [id number] [address] [place] [address], [place] [address] Apr, [facility] [place] [facility] [address] [id number] [address] [place] [address], [place] [address] Apr, [facility] [place] [facility] [address] [id number] [address] [place] [address], [place] [address] Mar, [facility] [place] [facility] [address] [id number] [address] [place] [address], [place] [address] Mar, [facility] [address] [id number] [address] [place] [address], [place] [address] Mar, [facility] [place] [facility] [address] [id number] [address] [place] [address], [place] [address] Mar, [facility] [address] [id number] [address] [place] [address], [place] [address] Feb, [facility] [address] [id number] [place] [id number] Jan, [facility] [address] [id number] [address] [place] [address], [place] [address] Jan, [facility] [address] [id number] [address] [place] [address], [place] [address] Dec, [facility] [place] [facility] [address] [id number] [address] [place] [address], [place] [address] Dec, [facility] [address] [id number] [address] [place] [address], [place] [address] Dec, [facility] [address] [id number] [place] [id number] Dec, [facility] [place] [facility] [address] [id number] [address] [place] [address], [place] [address] Nov, [facility] [place] [facility] [address] [id number] [address] [place] [address], [place] [address] 14 Nov, 2012 [facility] [place] [facility] [address] [id number] [address] [place] [address], [place] [address] Nov, [facility] [address] [facility] [id number] [address] [place] [address] Nov, [facility] [address] [id number] [address] [place] [address] Nov, [facility] [address] [facility] [id number] [address] [place] [address] October, [facility] [address] [facility] [id number] [address] [place] [address] October, [facility] [address] [facility] [id number] [address] [place] [address] Aug, [facility] [address] [facility] [id number] [address] [place] [address] Nov, IMMUNIZATIONS No Known Immunizations SOCIAL HISTORY Never Assessed REASON FOR VISIT Waiting for call back PLAN OF CARE VITAL SIGNS MEDICATIONS Medication Instructions Dosage Frequency Start Date End Date Duration S tatus Ibuprofen Childrens 100 MG/5ML Orally 2 times a day 30 ml wi th food or milk as needed 12h Nov, Nov, 0 days Active RESULTS No Results PROCEDURES No [...]
--- OUTSIDE RECORDS SUMMARY | 2019-11-29 09:44 | XMS REPORT ---
Author Author Curt REBOLLAR [facility] eClinicalWorks Address Unknown Phone Unavailable Care Team Providers Care Trust Vault Clerk Name Role Phone QUINTIN REBOLLAR CP Unavailable [...] patient &/family, 45 minutes, established patient CPT-4 [id number] September 28, 2015 Results No Known Results Summary Purpose eClinicalWorks Submission
--- OUTSIDE RECORDS SUMMARY | 2019-11-29 09:44 | XMS REPORT ---
Author Author Curt DIAZ [facility] CenterConstruction Software TechnologiesBROWNLE[facility] Address [address] [place] [address] Care Team Providers Care Noc Analyst Name Role Phone JOE CHRIS Unavailable PROBLEMS Type Condition ICD9-CM Code [id number] Code Onset Dates Condition S tatus SNOMED Code Problem Renal insufficiency N28.9 Active 021769750 Problem Callus of foot L84 Active 45521 1005 Problem Edema R60.9 Active 711821339 Problem Vitamin D deficiency E55.9 Active 71484405 Problem Anxiety F41.9 Active 93911230 Problem Acute bacterial conjunctivitis of left eye H10.32 Active 447705867 Problem Recurrent major depressive disorder, in partial remission F33.41 Active 41494156 Problem Severe episode of recurrent major depressive disorder, without psychotic features F33.2 Active 54024783 Problem Metabolic syndrome E88.81 Active 2 05102460 Problem Hyperlipemia E78.5 Active 4665198 4 Problem Type II diabetes mellitus E11.9 Acti ve 62290022 Problem Insomnia G47.00 Active 723863136 Problem Morbid obesity E66.01 Active 06011 6002 Problem Major depression F32.9 Active 370 607502 Problem Benign essential hypertension I10 Active 1482732 ALLERGIES Substance Reaction Event Type Date Status Egg White throat swells Non Drug Allergy Jan, Active Ragweed throat swells Non Drug Allergy Jan, Active [place] throat swells Non Drug Allergy Jan, Active Cows Milk throat swells Non Drug Allergy Jan, Active Wheat throat swells Non Drug Allergy Jan, Active Peanuts throat swells Non Drug Allergy Jan, Active Tenerius [place] throat swells Non Drug Allergy Jan, Active ENCOUNTERS Encounter Location Date Diagnosis [facility] [address] [facility] [id number] [address] [place] [address] October, [facility] [address] [facility] [id number], [place] [id number] Sep, [address] [id number], [place] [id number] Sep, [address] [id number], [place] [id number] Sep, Hospital discharge follow-up Z09 ; Aller gic rhinitis, unspecified seasonality, unspecified trigger J30.9 and Shortness of breath R06.[address] [id number], [place] [id number] Sep, [id number] [place] [address] [id number] Aug, Irritable mood R45.4 [place] [address] [place] [address] Aug, [address] [id number] [place] [address] [id number] Jul, Benign essential hypertension I10 ; Robert a R60.9 and Impacted cerumen of left ear H61.22 [place] [address] [place] [id number] [address] [place] [address] 14 Jul, 2017 Major depression F32.9 ; Rec urrent major depressive disorder, in partial remission F33.41 and Anxiety F41.9 [place] [address] [place] [id number] [address] [place] [address] Jun, Major depression F32.9 ; Rec urrent major depressive disorder, in partial remission F33.41 and Anxiety F41.[address] [id number], [place] [id number] Jun, Major depression F32.9 ; Morbid obesity E66.01 ; Irritable mood R45.4 ; Hand weakness R29.898 and Vitamin D deficiency E55.[address] [id number], [place] [id number] Jun, [facility] [address] [id number], [place] [id number] May, Major depression F32.9 [facility] [address] [facility] [id number] [address] [place] [address] May, Major depression F32.9 [facility] [address] [id number], [place] [id number] May, BMI 50.0-59.9, adult Z68.43 ; Major depr ession F32.9 ; Anxiety F41.9 ; Hypertrophic toenail L60.2 and Pain of left great toe M79.675 [facility] [address] [address] [id number], [place] [id number] May, Recurrent major depressive disorder, in partial remission F33.41 [place] [address] [place] [id number] [address] [place] [address] Apr, [facility] [address] [id number], [place] [id number] Apr, [facility] [address] [facility] [id number] [address] [place] [address] Apr, Major depression F32.9 [facility] [address] [id number], [place] [id number] Apr, Severe episode of recurrent major depres sive disorder, without psychotic features F33.2 ; Anxiety F41.9 and Insomnia G47.[address] [address] [address] [address] [id number], [place] [id number] Apr, [facility] [address] [facility] [id number] [address] [place] [address] Apr, [facility] [address] [id number], [place] [id number] Apr, [facility] [address] [id number], [place] [id number] Mar, [facility] [address] [id number], [place] [id number] Mar, Allergic conjunctivitis of both eyes H10 .13 [facility] [address] [facility] [id number] [address] [place] [address] Mar, Major depression F32.[address] [facility] [facility] [address] [id number], [place] [id number] Mar, Metabolic syndrome E88.81 ; History of g astric bypass Z98.890 ; Benign essential hypertension I10 and Allergic conjunctivitis of both eyes H10.13 [facility] [address] [facility] [id number] [address] [place] [address] Mar, Major depression F32.9 [facility] [id number] [place] [address] [id number] Feb, [facility] [address] [facility] [id number] [address] [place] [address] Feb, Major depression F32.9 [facility] [address] [id number], [place] [id number] Feb, Subacute maxillary sinusitis J01.00 and Bronchitis J40 [facility] [address] [facility] [id number] [address] [place] [address] Feb, Major depressive disorder, r ecurrent, moderate F33.[address] [facility] [address] [id number], [place] [id number] Jan, [facility] [address] [id number], [place] [id number] Jan, Acute non-recurrent maxillary sinusitis J01.00 and Skin tag L91.[address] [facility] [address] [address] [id number], [place] [id number] Jan, Cough R05 and Sinus congestion R09.81 [facility] [address] [id number], [place] [id number] Jan, [facility] [address] [id number], [place] [id number] Jan, Benign essential hypertension I10 ; Hist ory of gastric bypass Z98.890 and Nausea and vomiting in adult R11.2 [facility] [address] [place] [address] Jan, Major depressive disorder, r ecurrent, moderate F33.1 [place] [address] [place] [address] Dec, Insomnia G47.00 ; Recurrent major depressive disorder, in partial remission F33.41 and Morbid obesity E66.01 [facility] [address] [facility] [address] [id number], [place] [id number] Dec, [address] [id number] [place] [address] [id number] Dec, Chronic bacterial conjunctivitis of left eye H10.[address] [id number] [place] [id number] Nov, [address] [id number] [place] [address] [id number] Nov, Dental examination Z01.[address] [id number] [place] [address] [id number] Nov, Benign essential hypertension I10 ; Hist ory of gastric bypass Z98.890 and Nausea and vomiting in adult R11.2 [place] [address] [place] [id number] [address] [place] [address] Nov, Major depressive disorder, r ecurrent, moderate F33.1 ; Generalized anxiety disorder F41.1 and Insomnia due to other mental disorder F51.05 [place] [address] [place] [id number] [address] [place] [address] Nov, Recurrent major depressive d isorder, in partial remission F33.41 ; Insomnia G47.00 and Morbid obesity E66.01 [facility] [address] [id number] [place] [id number] October, Abscess of left arm L02.414 [place] [address] [place] [address] October, Morbid obesity E66.01 ; Lida r depression F32.9 and Recurrent major depressive disorder, in partial remission F33.41 [facility] [address] [id number], [place] [id number] Sep, Benign essential hypertension I10 ; Morb id obesity E66.01 ; S/P gastric bypass Z98.84 ; Abscess L02.91 and Chronic bacterial conjunctivitis of left eye H10.[address] [id number], [place] [id number] 17 Sep, 2016 Dental examination Z01.20 [place] [address] [place] [id number] [address] [place] [address] 11 Sep, 2016 Morbid obesity E66.01 ; Lida r depression F32.9 and Recurrent major depressive disorder, in partial remission F33.41 [place] [address] [place] [id number] [place] [address] Jul, [place] [address] [place] [id number] [place] [address] Jul, Major depressive disorder, r ecurrent, moderate F33.1 [place] [address] [place] [id number] [place] [address] Jul, Major depressive disorder, r ecurrent, moderate F33.1 and Generalized anxiety disorder F41.[address] [id number], [place] [id number] Jul, Cough R05 [place] [address] [facility] [id number] [address] [place] [address] 16 Jul, 2016 Morbid obesity E66.01 ; Lida r depression F32.9 and Recurrent major depressive disorder, in partial remission F33.[address] [place] [address] [id number], [place] [id number] Jul, [place] [address] [id number], [place] [id number] Jul, [facility] [address] [facility] [address] [id number], [place] [id number] Jul, Gastroenteritis K52.9 and Cough R05 [address] [id number] [place] [address] [id number] Jun, Acute bacterial conjunctivitis of left e ye H10.32 [place] [address] [facility] [id number] [address] [place] [address] Jun, [place] [address] [facility] [id number] [address] Jun, Recurrent major depressive d isorder, in partial remission F33.41 [place] [address] [place] [id number] [place] [address] May, Major depression F32.9 and M orbid obesity E66.01 [place] [address] [place] [id number] [place] [address] May, [address] [id number] [place] [address] [id number] May, Thrush B37.0 [place] [address] [facility] [id number] [address] [place] [address] Apr, Major depressive disorder, r ecurrent, moderate F33.1 [place] [address] [place] [address] Apr, Insomnia G47.00 ; Major depr ession F32.9 and Recurrent major depressive disorder, in partial remission F33.41 [place] [address] [facility] [id number] [address] [place] [address] Apr, [place] [address] [facility] [id number] [address] [place] [address] Apr, Major depression F32.9 and R ecurrent major depressive disorder, in partial remission F33.[id number] [place] [address] [id number] Mar, Benign essential hypertension I10 ; Morb id obesity E66.01 ; Impacted cerumen of both ears H61.23 ; Laceration of finger of right hand, initial encounter S61.219A and Encounter for immunization Z23 [facility] [address] [facility] [id number] [address] [place] [address] 17 Mar, 2016 [facility] [address] [facility] [id number] [address] [place] [phone] 13 Mar, 2016 [facility] [address] [facility] [id number] [address] [place] [address] Mar, [place] [address] [id number], [place] [id number] Feb, Nausea R11.0 ; Blood in the stool K92.1 and Benign essential hypertension I10 [facility] [address] [facility] [id number] [address] [place] [address] Feb, Major depression F32.9 and R ecurrent major depressive disorder, in partial remission F33.41 [facility] [address] [id number], [place] [id number] Feb, [facility] [address] [id number], [place] [id number] Feb, Recurrent major depressive disorder, in partial remission F33.41 [facility] [address] [id number], [place] [id number] Jan, [facility] [address] [id number], [place] [id number] Jan, Benign essential hypertension I10 ; Robert a R60.9 and Hyperlipidemia, unspecified hyperlipidemia type E78.5 [facility] [address] [id number], [place] [id number] Jan, Recurrent major depressive disorder, in partial remission F33.41 [facility] [place] [address] [id number] [place] [id number] Jan, [facility] [address] [id number], [place] [id number] Jan, [facility] [id number] [place] [address] [id number] Jan, [facility] [address] [facility] [id number] [address] [place] [address] Jan, [facility] [address] [facility] [id number] [address] [place] [address] Dec, [facility] [address] [facility] [id number] [address] [place] [address] Nov, [facility] [address] [facility] [id number] [address] [place] [address] Nov, Major depression F32.9 [facility] [address] [facility] [id number] [address] [place] [address] Nov, [facility] [address] [facility] [id number] [address] [place] [address] Nov, [facility] [address] [facility] [id number] [address] [place] [address] Nov, Major depressive disorder, r ecurrent episode, mild F33.[address] [facility] [address] [id number], [place] [id number] Nov, [facility] [id number] [place] [address] [id number] October, Left elbow pain M25.522 and Other season al allergic rhinitis J30.2 [facility] [address] [id number], [place] [id number] October, [facility] [address] [facility] [id number] [address] [place] [address] October, Major depressive disorder, r ecurrent, moderate F33.1 [facility] [address] [facility] [id number] [address] [place] [address] October, Major depression F32.9 [facility] [address] [facility] [id number] [address] [place] [address] Sep, [place] or callus L84 and Onych omycosis B35.1 [facility] [address] [facility] [id number] [address] [place] [address] Sep, Major depressive disorder, r ecurrent, moderate F33.1 [facility] [address] [facility] [id number] [address] [place] [address] Sep, Major depression F32.9 [facility] [address] [facility] [id number] [address] [place] [address] Sep, Moderate episode of recurren t major depressive disorder F33.1 [facility] [address] [id number], [place] [id number] Sep, Muscle strain T14.8 [facility] [address] [facility] [id number] [address] [place] [address] Aug, Major depression F32.9 [facility] [address] [facility] [id number] [address] [place] [address] Aug, Major depression F32.9 [facility] [address] [facility] [id number] [address] [place] [address] Jul, Morbid obesity E66.01 and Ma cora depression F32.9 [facility] [address] [facility] [id number] [address] [place] [address] Jul, Depression, major, recurrent , moderate F33.1 [facility] [address] [id number], [place] [id number] Jul, [facility] [address] [facility] [id number] [address] [place] [id number] Jul, [facility] [address] [facility] [id number] [address] [place] [address] Jul, Major depression F32.9 and M orbid obesity E66.01 [facility] [address] [id number], [place] [id number] 11 Jul, 2015 Type II diabetes mellitus E11.9 ; Callus of foot L84 ; Benign essential hypertension I10 and Renal insufficiency N28.9 [facility] [address] [facility] [id number] [address] [place] [address] 09 Jul, 2015 Depression, major, recurrent , moderate F33.1 [place] [address] [facility] [id number] [address] [place] [address] Jul, Major depression F32.9 [place] [address] [facility] [id number] [address] [place] [address] Jul, [place] [address] [facility] [id number] [address] [place] [address] Jun, Major depression F32.9 [place] [address] [facility] [id number] [address] [place] [address] Jun, Major depressive disorder, r ecurrent, moderate F33.1 [place] [address] [facility] [id number] [address] [place] [id number] Jun, [place] [address] [facility] [id number] [address] [place] [address] Jun, Major depressive disorder, r ecurrent, moderate F33.1 and Major depression F32.[address] [id number], [place] [id number] Jun, Type II diabetes mellitus E11.9 [place] [address] [facility] [id number] [address] [place] [address] Jun, Depression, major, recurrent , moderate F33.1 [place] [address] [facility] [id number] [address] [place] [address] May, Major depressive disorder, r ecurrent, moderate F33.1 [place] [address] [facility] [id number] [address] [place] [address] May, [address] [id number], [place] [id number] May, Edema R60.9 [facility] [address] [facility] [id number] [address] [place] [address] May, Insomnia G47.00 and Major de pression F32.9 [facility] [address] [facility] [address] [id number], [place] [id number] 15 May, 2015 Morbid obesity E66.01 ; Edema R60.9 ; Sh ortness of breath R06.02 ; Benign essential hypertension I10 and Renal insufficiency N28.[id number] [place] [address] [id number] May, Hyperlipemia 272.4 and Renal insufficien cy N28.9 [place] [address] [facility] [id number] [address] [place] [address] Apr, Major depression F32.9 [place] [address] [place] [id number] [address] [place] [address] Apr, [place] [address] [facility] [id number] [address] [place] [address] Apr, Major depressive disorder, r ecurrent, moderate F33.[address] [id number], [place] [id number] Apr, Type II diabetes mellitus E11.9 ; Benign essential hypertension I10 ; Edema R60.9 and Renal insufficiency N28.9 [place] [address] [facility] [id number] [address] [place] [address] Mar, Major depressive disorder, r ecurrent, moderate F33.1 [place] [address] [facility] [id number] [address] [place] [address] Mar, [place] [address] [facility] [id number] [address] [place] [address] Mar, Major depression F32.[address] [id number], [place] [id number] Mar, Morbid obesity E66.01 ; Benign essential hypertension I10 and Type II diabetes mellitus E11.9 [facility] [address] [facility] [id number] [address] [place] [address] Feb, Major depressive disorder, r ecurrent, moderate F33.1 [facility] [address] [facility] [id number] [address] [place] [phone] Feb, Major depressive disorder, r ecurrent episode, in partial or unspecified remission 296.35 ; Anxiety state, unspecified 300.00 and Morbid obesity 278.01 [facility] [address] [facility] [id number] [address] [place] [address] Feb, [place] [id number] [place] [address] [id number] Feb, Vomiting 787.03 and Viral syndrome 079.9 [address] [place] [id number] [place] [address] Feb, Major depression, recurrent 296.30 ; Generalized anxiety disorder 300.02 and No condition on [place] II V71.[address] [place] [id number] [place] [address] [id number] Feb, Skin tag 701.9 [place] [address] [facility] [id number] [address] [place] [address] Feb, [place] [address] [facility] [id number] [address] [place] [address] Jan, Depression, major, recurrent , moderate 296.32 [facility] [address] [id number], [place] [id number] Jan, Nausea and vomiting 787.01 ; Rib pain on right side 786.50 and Fall on or from sidewalk curb E880.1 [facility] [address] [facility] [id number] [address] [place] [id number] Jan, [place] [address] [address] [facility] [id number] [address] [place] [id number] Jan, Major depressive disorder, r ecurrent episode, in partial or unspecified remission 296.35 and Anxiety state, unspecified 300.[address] [facility] [id number] [id number] Jan, [facility] [address] [place] [id number] [place] [id number] Jan, Depression, major, recurrent , moderate 296.32 [facility] [address] [place] [id number] [place] [id number] Jan, Major depression, recurrent 296.30 ; No condition on [place] II V71.09 and No condition on axis III V71.[address] [facility] [id number][place] [id number] Jan, Drug-induced nausea and vomiting 787.01 [place] [id number] [address] [place] [id number] Jan, Depression, major, recurrent , moderate 296.[address] [id number] [address] [place] [id number] Dec, Depression, major, recurrent , moderate 296.[address] [facility] [place] [address] [place] [address] AVE [id number][place] [id number] Dec, Morbid obesity 278.01 ; Metabolic syndro me 277.7 ; Hyperlipemia 272.4 ; Benign essential hypertension 401.1 ; Dietary counseling V65.3 ; Exercise counseling V65.41 and Inflamed skin tag 701.[address] [id number] [address] [place] [address] Dec, Depression, major, recurrent , moderate 296.[address] [id number] [address] [place] [address] Dec, [place] [id number] [address] [place] [address] Dec, Major depression, recurrent 296.30 ; Anxiety, generalized 300.02 and No condition on [place] II V71.09 [facility] [address] [address] Dec, Depression, major, recurrent , moderate 296.32 [place] [address] [address] Dec, Major depressive disorder, r ecurrent episode, moderate 296.32 [place] [address] [address] Dec, Depression, major, recurrent , moderate 296.32 [place] [address] [address] Dec, Depression, major, recurrent , moderate 296.32 [place] 098462[address] Dec, Depression, major, recurrent , moderate 296.[address] [address] Dec, Depression, major, recurrent , moderate 296.32 [place] [address] [address] Nov, Depression, major, recurrent , moderate 296.32 [place] [address] [address] Nov, Major depression 296.20 ; So cial phobia 300.23 and No condition on [place] II V71.[address] [address] Nov, Depression, major, recurrent , moderate 296.32 [place] [address] [address] Nov, Major depressive disorder, r ecurrent episode, moderate 296.32 and Generalized anxiety disorder 300.02 [place] [address] [address] Nov, Depression, major, recurrent , moderate 296.32 [place] [address] [address] [place] [id number] 04 Nov, 2014 Depression, major, recurrent , moderate 296.32 [facility] [address] [id number] [address] [place] [address] 07 Oct, 2014 Generalized anxiety disorder 300.02 ; No condition on [place] II V71.09 and Major depressive disorder, recurrent 296.30 [facility] [address] [id number] [address] [place] [address] 14 Sep, 2014 [facility] [address] [id number] [address] [place] [address] Sep, [facility] [address] [id number] [address] [place] [address] 24 Aug, 2014 [facility] [address] [id number] [address] [place] [address] 24 Aug, 2014 [facility] [address] [id number] [address] [place] [address] Aug, [facility] [address] [id number] [address] [place] [address] Aug, [facility] [address] [id number] [address] [place] [address] 20 Aug, 2014 [facility] [address] [id number] [address] [place] [address] Aug, [facility] [address] [id number] [address] [place] [address] 20 Aug, 2014 [facility] [address] [id number] [address] [place] [address] 20 Aug, 2014 [facility] [address] [id number] [address] [place] [address] 13 Aug, 2014 [facility] [address] [id number] [address] [place] [address] 13 Aug, 2014 [facility] [address] [id number] [address] [place] [address] Aug, [facility] [address] [id number] [address] [place] [address], [place] [address] Aug, [facility] [address] [id number] [address] [place] [address], [place] [address] Aug, [facility] [address] [id number] [address] [place] [address], [place] [address] Aug, [facility] [address] [id number] [address] [place] [address], [place] [address] Aug, [facility] [address] [id number] [address] [place] [address], [place] [address] Aug, [facility] [address] [id number] [address] [place] [address], [place] [address] Aug, [facility] [address] [id number] [address] [place] [address], [place] [address] Aug, [facility] [address] [id number] [address] [place] [address], [place] [address] Jul, [facility] [address] [id number] [address] [place] [address], [place] [address] Jul, [facility] [address] [id number] [address] [place] [address], [place] [address] Jul, [facility] [address] [id number] [address] [place] [address], [place] [address] Jul, [facility] [address] [id number] [address] [place] [address], [place] [address] Jul, [facility] [address] [id number] [address] [place] [address], [place] [address] Jul, [facility] [address] [id number] [address] [place] [address], [place] [address] Jun, [facility] [address] [id number] [address] [place] [address], [place] [address] Jun, [facility] [address] [id number] [address] [place] [address] Jun, [facility] [address] [id number] [address] [place] [address], [place] [address] Jun, [facility] [address] [id number] [address] [place] [address], [place] [address] Jun, [facility] [address] [id number] [address] [place] [address], [place] [address] Jun, [facility] [address] [id number] [address] [place] [address], [place] [address] Jun, [facility] [address] [id number] [address] [place] [address], [place] [address] Jun, [facility] [address] [id number] [address] [place] [address], [place] [address] Jun, [facility] [address] [id number] [address] [place] [address], [place] [address] Jun, [facility] [address] [id number] [address] [place] [address], [place] [address] Jun, [facility] [address] [id number] [address] [place] [address], [place] [address] Jun, [facility] [address] [id number] [place] [id number] Jun, [facility] [address] [id number] [address] [place] [address], [place] [address] Jun, [facility] [address] [id number] [address] [place] [address] Jun, [facility] [address] [id number] [address] [place] [address], [place] [address] Jun, [facility] [address] [id number] [address] [place] [address], [place] [address] May, [facility] [address] [id number] [address] [place] [address], [place] [address] May, [facility] [address] [id number] [address] [place] [address], [place] [address] 05 May, 2014 [facility] [address] [id number] [address] [place] [address], [place] [address] May, [facility] [address] [id number] [address] [place] [address], [place] [address] Apr, [facility] [address] [id number] [address] [place] [address], [place] [address] Apr, [facility] [address] [id number] [address] [place] [address], [place] [address] Apr, [facility] [address] [id number] [address] [place] [address], [place] [address] Apr, [facility] [address] [id number] [address] [place] [address], [place] [address] Apr, [facility] [address] [id number] [address] [place] [address], [place] [address] Apr, [facility] [address] [id number] [address] [place] [address], [place] [address] Apr, [facility] [address] [id number] [address] [place] [address], [place] [address] Apr, [facility] [address] [id number] [address] [place] [address], [place] [address] Apr, [facility] [address] [id number] [address] [place] [address], [place] [address] Apr, [facility] [address] [id number] [address] [place] [address], [place] [address] Apr, [facility] [address] [id number] [address] [place] [address], [place] [address] Apr, [facility] [address] [id number] [address] [place] [address], [place] [address] Apr, [facility] [address] [id number] [address] [place] [address], [place] [address] Apr, [facility] [address] [id number] [address] [place] [address], [place] [address] Apr, [facility] [address] [id number] [address] [place] [address], [place] [address] Apr, [facility] [address] [id number] [address] [place] [address], [place] [address] Apr, [facility] [address] [id number] [address] [place] [address], [place] [address] Apr, [facility] [address] [id number] [address] [place] [address], [place] [address] Apr, [facility] [address] [id number] [address] [place] [address], [place] [address] Apr, [facility] [address] [id number] [address] [place] [address], [place] [address] Mar, [facility] [address] [id number] [address] [place] [address], [place] [address] Mar, [facility] [address] [id number] [address] [place] [address], [place] [address] Mar, [facility] [address] [id number] [address] [place] [address] Mar, [facility] [address] [id number] [address] [place] [address] Mar, [facility] [address] [id number] [address] [place] [address] Mar, [facility] [address] [id number] [address] [place] [address], [place] [address] Mar, [facility] [address] [id number] [address] [place] [address], [place] [address] Mar, [facility] [address] [id number] [address] [place] [address] Mar, [facility] [address] [id number] [address] [place] [address] Mar, [facility] [address] [id number] [address] [place] [address], [place] [address] Feb, [facility] [address] [id number] [address] [place] [address], [place] [address] Feb, [facility] [address] [id number] [address] [place] [address], [place] [address] Feb, [facility] [address] [id number] [address] [place] [address], [place] [address] Feb, [facility] [address] [id number] [address] [place] [address], [place] [address] Jan, [facility] [address] [id number] [address] [place] [address], [place] [address] Jan, [facility] [address] [id number] [address] [place] [address], [place] [address] Jan, [facility] [address] [id number] [address] [place] [address], [place] [address] Jan, [facility] [address] [id number] [address] [place] [address], [place] [address] Jan, [facility] [address] [id number] [address] [place] [address], [place] [address] Jan, [facility] [address] [id number] [address] [place] [address], [place] [address] Dec, [facility] [address] [id number] [address] [place] [address], [place] [address] Dec, [facility] [address] [id number] [address] [place] [address], [place] [address] Nov, [facility] [address] [id number] [address] [place] [address], [place] [address] Nov, [facility] [address] [id number] [address] [place] [address], [place] [address] Nov, [facility] [address] [id number] [facility] [place] [address] Nov, [facility] [address] [id number] [address] [place] [address], [place] [address] Nov, [facility] [address] [id number] [address] [place] [address], [place] [address] Nov, [facility] [address] [id number] [address] [place] [address], [place] [address] Sep, [facility] [address] [id number] [address] [place] [address], [place] [address] Sep, [facility] [address] [id number] [address] [place] [address], [place] [address] Sep, [facility] [address] [id number] [address] [place] [address], [place] [address] Sep, [facility] [address] [id number] [address] [place] [address], [place] [address] Aug, [facility] [address] [id number] [address] [place] [address], [place] [address] Aug, [facility] [address] [id number] [address] [place] [address], [place] [address] Jul, [facility] [address] [id number] [address] [place] [address], [place] [address] Jul, [facility] [address] [id number] [address] [place] [address], [place] [address] Jun, [facility] [address] [id number] [address] [place] [address], [place] [address] Jun, [facility] [address] [id number] [address] [place] [address], [place] [address] Jun, [facility] [address] [id number] [address] [place] [address], [place] [address] Jun, [facility] [address] [id number] [address] [place] [address], [place] [address] May, [facility] [address] [id number] [address] [place] [address], [place] [address] May, [facility] [address] [id number] [address] [place] [address], [place] [address] May, [facility] [address] [id number] [address] [place] [address], [place] [address] May, [facility] [address] [id number] [address] [place] [address], [place] [address] May, [facility] [address] [id number] [address] [place] [address], [place] [address] May, [facility] [address] [id number] [address] [place] [address] Apr, [facility] [address] [id number] [address] [place] [address], [place] [address] Apr, [facility] [address] [id number] [address] [place] [address], [place] [address] Apr, [facility] [address] [id number] [address] [place] [address], [place] [address] Apr, [facility] [address] [id number] [address] [place] [address] Mar, [facility] [address] [id number] [address] [place] [address] Mar, [facility] [address] [id number] [address] [place] [address] Mar, [facility] [address] [id number] [address] [place] [address], [place] [address] Mar, [facility] [address] [id number] [address] [place] [address] Feb, [facility] [place] [address] [id number] [place] [id number] Jan, [facility] [address] [id number] [address] [place] [address] Jan, [facility] [address] [id number] [address] [place] [address] Dec, [facility] [address] [id number] [address] [place] [address] Dec, [facility] [address] [id number] [address] [place] [address] Dec, [facility] [address] [id number] [place] [id number] Dec, [facility] [address] [id number] [address] [place] [address] Nov, [facility] [address] [id number] [address] [place] [address] Nov, [facility] [address] [id number] [address] [place] [address] Nov, [facility] [address] [id number] [address] [place] [address] Nov, [facility] [address] [id number] [address] [place] [address] Nov, [facility] [address] [id number] [address] [place] [address] October, [facility] [address] [id number] [address] [place] [address] October, [facility] [address] [id number] [address] [place] [address] Aug, [facility] [address] [id number] [address] [place] [address] Nov, IMMUNIZATIONS No Known Immunizations SOCIAL HISTORY Never Assessed REASON FOR VISIT Cough for the past week, coughing up green drainage. Tirso YEPEZ PLAN OF CARE Activity Details Follow Up 6 Months Reason:weight check VITAL SIGNS Height 71.5 in 2017-02-09 Weight 377.8 lbs 2017-02-09 Temperature 96.9 degrees Fahrenheit 2017-02-09 Heart Rate 64 bpm 2017-02-09 Respiratory Rate 19 2017-02-09 Oximetry 96 % 2017-02-09 BMI 51.95 kg/m2 2017-02-09 Blood pressure systolic 128 mmHg 2017-02-09 Blood pressure diastolic 84 mmHg 2017-02-09 MEDICATIONS Medication Instructions Dosage Frequency Start Date End Date Duration S tat Trintellix 20 mg TAKE 1 TABLET BY MOUTH ONCE DAILY Active Trazodone HCl 50 mg Orally Once a day 1 tablet at bedtime 24h Nov Active Zofran 8 MG Orally Once a day 1 tablet 24h A ctive Azithromycin 250 MG Orally Once a day 2 tablets on the fi rst day, then 1 tablet daily for 4 days 24h Jan, Feb, 5 day(s) Active Vitamin D-3 1000 UNIT Orally Once a day 2 capsule 24h Active Flovent HFA 110 mcg/actuation inhalation once per day 1-3 Puffs 1 time per day October, 0 Active Flonase 50 mcg/actuation nasally once per day 1 spray (50 mc g) in each nostril by intranasal route 2 times per day Nov, 0 Active Centrum - Active Lisinopril 40 mg Orally Once a day 1 tablet 24h Active Montelukast Sodium 10 MG TAKE ONE TABLET BY MOUTH DAILY 90 Active Sudafed 60 mg Orally every 6 hrs 1 tablet as needed 6h Jan, 14 days Active Omeprazole 40 MG Orally Once a day 1 tablet 24h 0 da ys Active Atenolol 100 mg Orally Once a day 1 tablet 24h Active Cetirizine HCl 10 mg Orally Once a day 1 tablet 24h 0 Active RESULTS No Results PROCEDURES No [...]
--- OUTSIDE RECORDS SUMMARY | 2019-11-29 09:44 | XMS REPORT ---
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 Name Role Phone JOE CHRIS Unavailable PROBLEMS Type Condition ICD9-CM Code HWZ55-QU Code Onset Dates Condition S tatus SNOMED Code Problem Renal insufficiency N28.9 Active 830761686 Problem Callus of foot L84 Active 62095 1005 Problem Edema R60.9 Active 034119066 Problem Vitamin D deficiency E55.9 Active 52853220 Problem Anxiety F41.9 Active 24456027 Problem Acute bacterial conjunctivitis of left eye H10.32 Active 125391233 Problem Recurrent major depressive disorder, in partial remission F33.41 Active 52275680 Problem Severe episode of recurrent major depressive disorder, without psychotic features F33.2 Active 71504501 Problem Metabolic syndrome E88.81 Active 2 41584227 Problem Hyperlipemia E78.5 Active 3414000 4 Problem Type II diabetes mellitus E11.9 Acti ve 45956678 Problem Insomnia G47.00 Active 646828439 Problem Morbid obesity E66.01 Active 13170 6002 Problem Major depression F32.9 Active 370 706567 Problem Benign essential hypertension I10 Active 4236615 ALLERGIES No Information ENCOUNTERS Encounter Location Date Diagnosis [facility] [address] [facility] [id number] [address] [place] [phone] October, [facility] [address] [id number], [place] [id number] Sep, [facility] [address] [id number], [place] [phone] Sep, [facility] [address] [id number], [place] [id number] Aug, Irritable mood R45.4 [facility] [address] [facility] [id number] [address] [place] [phone] Aug, [facility] [address] [id number], [place] [id number] Jul, Benign essential hypertension I10 ; Robert a R60.9 and Impacted cerumen of left ear H61.22 [place] [address] [place] [id number] [address] [place] [address] Jul, Major depression F32.9 ; Rec urrent major depressive disorder, in partial remission F33.41 and Anxiety F41.9 [place] [address] [facility] [id number] [address] [place] [address] Jun, Major depression F32.9 ; Rec urrent major depressive disorder, in partial remission F33.41 and Anxiety F41.[address] [place] [address] [id number], [place] [id number] Jun, Major depression F32.9 ; Morbid obesity E66.01 ; Irritable mood R45.4 ; Hand weakness R29.898 and Vitamin D deficiency E55.[address] [place] [address] [id number], [place] [id number] Jun, [place] [address] [id number], [place] [id number] May, Major depression F32.9 [place] [address] [facility] [id number] [address] [place] [phone] May, Major depression F32.9 [facility] [address] [id number], [place] [id number] May, BMI 50.0-59.9, adult Z68.43 ; Major depr ession F32.9 ; Anxiety F41.9 ; Hypertrophic toenail L60.2 and Pain of left great toe M79.[address] [place] [address] [id number], [place] [id number] May, Recurrent major depressive disorder, in partial remission F33.41 [place] [address] [facility] [id number] [address] [place] [phone] Apr, [facility] [address] [id number], [place] [id number] Apr, [facility] [address] [facility] [id number] [address] [place] [phone] Apr, Major depression F32.9 [facility] [id number] [place] [address] [id number] Apr, Severe episode of recurrent major depres sive disorder, without psychotic features F33.2 ; Anxiety F41.9 and Insomnia G47.00 [facility] [address] [id number], [place] [id number] Apr, [facility] [address] [facility] [id number] [address] [place] [phone] Apr, [facility] [id number] [place] [address] [id number] Apr, [facility] [address] [id number], [place] [id number] Mar, [facility] [id number] [place] [address] [id number] Mar, Allergic conjunctivitis of both eyes H10 .13 [facility] [address] [facility] [id number] [address] [place] [address] Mar, Major depression F32.9 [facility] [address] [id number], [place] [id number] Mar, Metabolic syndrome E88.81 ; History of g astric bypass Z98.890 ; Benign essential hypertension I10 and Allergic conjunctivitis of both eyes H10.13 [facility] [address] [facility] [id number] [address] [place] [phone] Mar, Major depression F32.9 [facility] [address] [id number], [place] [id number] Feb, [place] [address] [facility] [id number] [address] [place] [phone] 12 Feb, 2017 Major depression F32.[id number] [place] [address] [id number] Feb, Subacute maxillary sinusitis J01.00 and Bronchitis J40 [place] [address] [place] [id number] [address] [place] [phone] Feb, Major depressive disorder, r ecurrent, moderate F33.[address] [id number], [place] [id number] Jan, [id number] [place] [address] [id number] Jan, Acute non-recurrent maxillary sinusitis J01.00 and Skin tag L91.[address] [id number] [place] [address] [id number] Jan, Cough R05 and Sinus congestion R09.[address] [id number], [place] [id number] Jan, [id number] [place] [address] [id number] Jan, Benign essential hypertension I10 ; Hist ory of gastric bypass Z98.890 and Nausea and vomiting in adult R11.2 [place] [address] [facility] [id number] [address] [place] [phone] Jan, Major depressive disorder, r ecurrent, moderate F33.1 [place] [address] [facility] [id number] [address] [place] [phone] Dec, Insomnia G47.00 ; Recurrent major depressive disorder, in partial remission F33.41 and Morbid obesity E66.[id number] [place] [address] [phone] Dec, [id number] [place] [address] [id number] Dec, Chronic bacterial conjunctivitis of left eye H10.402 [facility] [address] [facility] [address] [id number], [place] [id number] Nov, [address] [id number], [place] [id number] Nov, Dental examination Z01.[address] [id number], [place] [id number] 23 Nov, 2016 Benign essential hypertension I10 ; Hist ory of gastric bypass Z98.890 and Nausea and vomiting in adult R11.2 [facility] [address] [facility] [id number] [address] [place] [phone] 13 Nov, 2016 Major depressive disorder, r ecurrent, moderate F33.1 ; Generalized anxiety disorder F41.1 and Insomnia due to other mental disorder F51.05 [place] [address] [place] [id number] [address] [place] [phone] 12 Nov, 2016 Recurrent major depressive d isorder, in partial remission F33.41 ; Insomnia G47.00 and Morbid obesity E66.01 [facility] [address] [id number] [place] [id number] October, Abscess of left arm L02.414 [place] [address] [facility] [id number] [address] [place] [phone] October, Morbid obesity E66.01 ; Lida r depression F32.9 and Recurrent major depressive disorder, in partial remission F33.[address] [id number], [place] [id number] Sep, Benign essential hypertension I10 ; Morb id obesity E66.01 ; S/P gastric bypass Z98.84 ; Abscess L02.91 and Chronic bacterial conjunctivitis of left eye H10.[address] [id number], [place] [id number] 17 Sep, [address] [facility] [address] [facility] [id number] [address] [place] [phone] 11 Sep, 2016 Morbid obesity E66.01 ; Lida r depression F32.9 and Recurrent major depressive disorder, in partial remission F33.41 [place] [address] [facility] [id number] [address] [place] [phone] Jul, [facility] [address] [facility] [id number] [address] [place] [phone] Jul, Major depressive disorder, r ecurrent, moderate F33.1 [place] [address] [facility] [id number] [address] [place] [phone] Jul, Major depressive disorder, r ecurrent, moderate F33.1 and Generalized anxiety disorder F41.1 [facility] [id number] [place] [address] [id number] Jul, Cough R05 [place] [address] [facility] [id number] [address] [place] [phone] Jul, Morbid obesity E66.01 ; Lida r depression F32.9 and Recurrent major depressive disorder, in partial remission F33.41 [facility] [id number] [place] [address] [id number] Jul, [facility] [id number] [place] [address] [id number] Jul, [place] [id number] [place] [address] [id number] Jul, Gastroenteritis K52.9 and Cough R[address] [place] [id number] [place] [address] [id number] Jun, Acute bacterial conjunctivitis of left e ye H10.32 [place] [address] [facility] [id number] [address] [place] [phone] Jun, [place] [address] [facility] [id number] [address] [place] [phone] Jun, Recurrent major depressive d isorder, in partial remission F33.41 [place] [address] [facility] [id number] [address] [place] [phone] May, Major depression F32.9 and M orbid obesity E66.01 [facility] [address] [facility] [id number] [address] [place] [phone] May, [facility] [address] [facility] [address] [id number] [place] [address] [id number] May, Thrush B37.0 [place] [address] [facility] [id number] [address] [place] [phone] Apr, Major depressive disorder, r ecurrent, moderate F33.1 [place] [address] [facility] [id number] [address] [place] [address] Apr, Insomnia G47.00 ; Major depr ession F32.9 and Recurrent major depressive disorder, in partial remission F33.41 [place] [address] [facility] [id number] [address] [place] [phone] Apr, [place] [address] [facility] [id number] [address] [place] [phone] Apr, Major depression F32.9 and R ecurrent major depressive disorder, in partial remission F33.[address] [id number], [place] [id number] Mar, Benign essential hypertension I10 ; Morb id obesity E66.01 ; Impacted cerumen of both ears H61.23 ; Laceration of finger of right hand, initial encounter S61.219A and Encounter for immunization Z23 [facility] [address] [facility] [id number] [address] [place] [phone] Mar, [facility] [address] [facility] [id number] [address] [place] [phone] Mar, [place] [address] [facility] [id number] [address] [place] [phone] Mar, [address] [id number], [place] [id number] Feb, Nausea R11.0 ; Blood in the stool K92.1 and Benign essential hypertension I10 [facility] [address] [facility] [id number] [address] [place] [phone] Feb, Major depression F32.9 and R ecurrent major depressive disorder, in partial remission F33.[address] [facility] [address] [id number], [place] [id number] Feb, [facility] [address] [id number], [place] [id number] Feb, Recurrent major depressive disorder, in partial remission F33.[address] [facility] [address] [id number], [place] [id number] Jan, [facility] [address] [address] [id number], [place] [id number] Jan, Benign essential hypertension I10 ; Robert a R60.9 and Hyperlipidemia, unspecified hyperlipidemia type E78.5 [facility] [address] [id number], [place] [id number] Jan, Recurrent major depressive disorder, in partial remission F33.41 [facility] [address] [id number] [place] [id number] Jan, [facility] [address] [id number], [place] [id number] Jan, [facility] [address] [id number], [place] [id number] Jan, [facility] [address] [facility] [id number] [address] [place] [phone] Jan, [facility] [address] [facility] [id number] [address] [place] [phone] Dec, [facility] [address] [facility] [id number] [address] [place] [phone] Nov, [facility] [address] [facility] [id number] [address] [place] [phone] Nov, Major depression F32.9 [facility] [address] [facility] [id number] [address] [place] [phone] Nov, [facility] [address] [facility] [id number] [address] [place] [phone] Nov, [facility] [address] [place] [id number] [address] [place] [phone] Nov, Major depressive disorder, r ecurrent episode, mild F33.0 and Anxiety F41.[id number] [place] [address] [id number] Nov, [address] [id number] [place] [address] [id number] October, Left elbow pain M25.522 and Other season al allergic rhinitis J30.[address] [id number] [place] [address] [id number] October, [place] [address] [place] [id number] [address] [place] [phone] October, Major depressive disorder, r ecurrent, moderate F33.1 [facility] [address] [place] [id number] [address] [place] [phone] October, Major depression F32.9 [place] [address] [place] [id number] [address] [place] [phone] Sep, [place] or callus L84 and Onych omycosis B35.1 [place] [address] [place] [id number] [address] [place] [phone] Sep, Major depressive disorder, r ecurrent, moderate F33.1 [facility] [address] [facility] [id number] [address] [place] [phone] Sep, Major depression F32.9 [place] [address] [place] [id number] [address] [place] [phone] Sep, Moderate episode of recurren t major depressive disorder F33.1 [place] [address] [facility] [id number] [place] [address] [id number] Sep, Muscle strain T14.8 [facility] [address] [facility] [id number] [address] [place] [phone] Aug, Major depression F32.9 [facility] [address] [facility] [id number] [address] [place] [phone] Aug, Major depression F32.9 [facility] [address] [facility] [id number] [address] [place] [phone] Jul, Morbid obesity E66.01 and Ma cora depression F32.9 [facility] [address] [facility] [id number] [address] [place] [phone] Jul, Depression, major, recurrent , moderate F33.1 [facility] [address] [id number], [place] [id number] Jul, [facility] [address] [facility] [id number] [address] [place] [phone] Jul, [facility] [address] [facility] [id number] [address] [place] [phone] Jul, Major depression F32.9 and M orbid obesity E66.01 [facility] [id number] [place] [address] [id number] Jul, Type II diabetes mellitus E11.9 ; Callus of foot L84 ; Benign essential hypertension I10 and Renal insufficiency N28.9 [facility] [address] [facility] [id number] [address] [place] [phone] Jul, Depression, major, recurrent , moderate F33.1 [facility] [address] [facility] [id number] [address] [place] [phone] Jul, Major depression F32.9 [facility] [address] [facility] [id number] [address] [place] [phone] Jul, [facility] [address] [facility] [id number] [address] [place] [phone] Jun, Major depression F32.9 [place] [address] [facility] [id number] [address] [place] [phone] Jun, Major depressive disorder, r ecurrent, moderate F33.1 [place] [address] [facility] [id number] [address] [place] [phone] Jun, [place] [address] [facility] [id number] [address] [place] [phone] Jun, Major depressive disorder, r ecurrent, moderate F33.1 and Major depression F32.[id number] [place] [address] [id number] Jun, Type II diabetes mellitus E11.9 [place] [address] [facility] [id number] [address] [place] [address] Jun, Depression, major, recurrent , moderate F33.1 [place] [address] [place] [id number] [address] [place] [phone] May, Major depressive disorder, r ecurrent, moderate F33.1 [place] [address] [facility] [id number] [address] [place] [phone] May, [id number] [place] [address] [id number] May, Edema R60.9 [place] [address] [place] [id number] [address] [place] [phone] 17 May, 2015 Insomnia G47.00 and Major de pression F32.[address] [place] [id number] [place] [address] [id number] 15 May, 2015 Morbid obesity E66.01 ; Edema R60.9 ; Sh ortness of breath R06.02 ; Benign essential hypertension I10 and Renal insufficiency N28.[address] [id number] [place] [address] [id number] 14 May, 2015 Hyperlipemia 272.4 and Renal insufficien cy N28.9 [place] [address] [facility] [id number] [address] [place] [phone] Apr, Major depression F32.9 [place] [address] [facility] [id number] [address] [place] [phone] Apr, [place] [address] [facility] [id number] [address] [place] [phone] Apr, Major depressive disorder, r ecurrent, moderate F33.1 [facility] [address] [id number], [place] [id number] Apr, Type II diabetes mellitus E11.9 ; Benign essential hypertension I10 ; Edema R60.9 and Renal insufficiency N28.9 [place] [address] [facility] [id number] [address] [place] [phone] Mar, Major depressive disorder, r ecurrent, moderate F33.1 [place] [address] [place] [id number] [address] [place] [phone] Mar, [place] [address] [facility] [id number] [address] [place] [phone] Mar, Major depression F32.[address] [id number] [place] [address] [id number] Mar, Morbid obesity E66.01 ; Benign essential hypertension I10 and Type II diabetes mellitus E11.9 [place] [address] [address] [facility] [id number] [address] [place] [id number] Feb, Major depressive disorder, r ecurrent, moderate F33.1 [place] [address] [address] [facility] [id number] [address] [place] [id number] Feb, Major depressive disorder, r ecurrent episode, in partial or unspecified remission 296.35 ; Anxiety state, unspecified 300.00 and Morbid obesity 278.01 [place] [address] [address] [facility] [id number] [address] [place] [id number] Feb, [facility] [address] [id number] [id number] Feb, Vomiting 787.03 and Viral syndrome 079.[address] [facility] [address] [facility] [id number] [address] [place] [id number] 15 Feb, 2015 Major depression, recurrent 296.30 ; Generalized anxiety disorder 300.02 and No condition on [place] V71.[address] [id number] [id number] Feb, Skin tag 701.9 [facility] [address] [place] [id number] [address] [place] [id number] Feb, [facility] [address] [place] [id number] [address] [place] [phone] Jan, Depression, major, recurrent , moderate 296.[address] [id number] [id number] Jan, Nausea and vomiting 787.01 ; Rib pain on right side 786.50 and Fall on or from sidewalk curb E880.1 [facility] [address] [place] [id number] [address] [place] [phone] Jan, [facility] [address] [place] [id number] [address] [place] [phone] Jan, Major depressive disorder, r ecurrent episode, in partial or unspecified remission 296.35 and Anxiety state, unspecified 300.[address] [id number][place] [id number] Jan, [facility] [address] [facility] [id number] [address] [place] [id number] Jan, Depression, major, recurrent , moderate 296.32 [facility] 301 [address] [facility] [id number] [address] [place], [place] [address] Jan, Major depression, recurrent 296.30 ; No condition on [place] II V71.09 and No condition on axis III V71.[address] [id number] [id number] Jan, Drug-induced nausea and vomiting 787.01 [place] [id number] [address] [place] [address] Jan, Depression, major, recurrent , moderate 296.[address] [address] Dec, Depression, major, recurrent , moderate 296.[address] [place] [id number] [place] [id number] Dec, Morbid obesity 278.01 ; Metabolic syndro me 277.7 ; Hyperlipemia 272.4 ; Benign essential hypertension 401.1 ; Dietary counseling V65.3 ; Exercise counseling V65.41 and Inflamed skin tag 701.[address] [address] Dec, Depression, major, recurrent , moderate 296.[address] [address] Dec, [address] [address] Dec, Major depression, recurrent 296.30 ; Anxiety, generalized 300.02 and No condition on [place] II V71.09 [place] [id number] [address] [place] [address] Dec, Depression, major, recurrent , moderate 296.[address] [address] Dec, Major depressive disorder, r ecurrent episode, moderate 296.[address] [address] Dec, Depression, major, recurrent , moderate 296.[address] [address] Dec, Depression, major, recurrent , moderate 296.[address] [address] Dec, Depression, major, recurrent , moderate 296.32 [facility] [address] [place] [address] Dec, Depression, major, recurrent , moderate 296.32 [facility] [address] [place] [id number] [place] [address] Nov, Depression, major, recurrent , moderate 296.32 [facility] [address] [address] Nov, Major depression 296.20 ; So cial phobia 300.23 and No condition on [place] II V71.09 [place] [address] [address] Nov, Depression, major, recurrent , moderate 296.32 [place] [address] [address] Nov, Major depressive disorder, r ecurrent episode, moderate 296.32 and Generalized anxiety disorder 300.02 [facility] [address] [address] Nov, Depression, major, recurrent , moderate 296.32 [place] [address] [address] Nov, Depression, major, recurrent , moderate 296.32 [place] [address] [address] October, Generalized anxiety disorder 300.02 ; No condition on [place] II V71.09 and Major depressive disorder, recurrent 296.30 [facility] [address] [address] Sep, [place] [address] [address] Sep, [facility] [address] [address] Aug, [facility] [address] [address] 24 Aug, 2014 [facility] [address] [id number] [facility] [place] [address] 23 Aug, 2014 [facility] [address] [id number] [address] [place] [address], [place] [address] 23 Aug, 2014 [facility] [place] [address] [id number] [address] [place] [address], [place] [address] 20 Aug, 2014 [facility] [place] [address] [id number] [address] [place] [address], [place] [address] 20 Aug, 2014 [facility] [place] [address] [id number] [address] [place] [address], [place] [address] 20 Aug, 2014 [facility] [place] [facility] [address] [id number] [address] [place] [address], [place] [address] 20 Aug, 2014 [facility] [place] [facility] [address] [id number] [address] [place] [address], [place] [address] 13 Aug, 2014 [facility] [place] [facility] [address] [id number] [address] [place] [address], [place] [address] 13 Aug, 2014 [facility] [place] [facility] [address] [id number] [address] [place] [address], [place] [address] 13 Aug, 2014 [facility] [place] [facility] [address] [id number] [address] [place] [address], [place] [address] 13 Aug, 2014 [facility] [place] [facility] [address] [id number] [address] [place] [address], [place] [address] 12 Aug, 2014 [facility] [place] [facility] [address] [id number] [address] [place] [address], [place] [address] 12 Aug, 2014 [facility] [place] [facility] [address] [id number] [address] [place] [address], [place] [address] 10 Aug, 2014 [facility] [place] [facility] [address] [id number] [address] [place] [address], [place] [address] 10 Aug, 2014 [facility] [place] [facility] [address] [id number] [address] [place] [address], [place] [address] 09 Aug, 2014 [facility] [place] [facility] [address] [id number] [address] [place] [address], [place] [address] Aug, [facility] [address] [id number] [address] [place] [address], [place] [address] Jul, [facility] [place] [facility] [address] [id number] [address] [place] [address], [place] [address] Jul, [facility] [address] [id number] [address] [place] [address], [place] [address] Jul, [facility] [place] [facility] [address] [id number] [address] [place] [address], [place] [address] Jul, [facility] [address] [id number] [address] [place] [address], [place] [address] Jul, [facility] [address] [id number] [address] [place] [address], [place] [address] Jul, [facility] [address] [id number] [address] [place] [address], [place] [address] Jun, [facility] [address] [id number] [address] [place] [address], [place] [address] Jun, [facility] [address] [id number] [address] [place] [address], [place] [address] Jun, [facility] [address] [id number] [address] [place] [address], [place] [address] Jun, [facility] [place] [facility] [address] [id number] [address] [place] [address], [place] [address] Jun, [facility] [address] [id number] [address] [place] [address], [place] [address] Jun, [facility] [place] [address] [id number] [address] [place] [address], [place] [address] Jun, [facility] [place] [facility] [address] [id number] [address] [place] [address], [place] [address] Jun, [facility] [place] [facility] [address] [id number] [address] [place] [address], [place] [address] Jun, [facility] [address] [id number] [address] [place] [address], [place] [address] Jun, [facility] [address] [id number] [address] [place] [address], [place] [address] Jun, [facility] [address] [id number] [address] [place] [address], [place] [address] Jun, [facility] [address] [id number] [place] [id number] Jun, [facility] [address] [id number] [address] [place] [address], [place] [address] Jun, [facility] [address] [id number] [address] [place] [address], [place] [address] Jun, [facility] [address] [id number] [address] [place] [address], [place] [address] Jun, [facility] [address] [id number] [address] [place] [address], [place] [address] May, [facility] [address] [id number] [address] [place] [address], [place] [address] May, [facility] [address] [id number] [address] [place] [address], [place] [address] May, [facility] [address] [id number] [address] [place] [address], [place] [address] May, [facility] [place] [facility] [address] [id number] [address] [place] [address], [place] [address] Apr, [facility] [place] [facility] [address] [id number] [address] [place] [address], [place] [address] Apr, [facility] [place] [facility] [address] [id number] [address] [place] [address], [place] [address] Apr, [facility] [place] [facility] [address] [id number] [address] [place] [address], [place] [address] Apr, [facility] [place] [facility] [address] [id number] [address] [place] [address] [place] [address] Apr, [facility] [place] [facility] [address] [id number] [address] [place] [address], [place] [address] Apr, [facility] [place] [facility] [address] [id number] [address] [place] [address], [place] [address] Apr, [facility] [place] [facility] [address] [id number] [address] [place] [address], [place] [address] Apr, [facility] [place] [facility] [address] [id number] [address] [place] [address], [place] [address] Apr, [facility] [place] [facility] [address] [id number] [address] [place] [address], [place] [address] Apr, [facility] [place] [facility] [address] [id number] [address] [place] [address], [place] [address] Apr, [facility] [place] [facility] [address] [id number] [address] [place] [address], [place] [address] Apr, [facility] [place] [facility] [address] [id number] [address] [place] [address], [place] [address] Apr, [facility] [place] [facility] [address] [id number] [address] [place] [address], [place] [address] Apr, [facility] [place] [facility] [address] [id number] [address] [place] [address], [place] [address] Apr, [facility] [place] [facility] [address] [id number] [address] [place] [address], [place] [address] Apr, [facility] [place] [facility] [address] [id number] [address] [place] [address] Apr, [facility] [place] [facility] [address] [id number] [address] [place] [address], [place] [address] Apr, [facility] [place] [facility] [address] [id number] [address] [place] [address], [place] [address] Apr, [facility] [place] [facility] [address] [id number] [address] [place] [address] Apr, [facility] [place] [facility] [address] [id number] [address] [place] [address], [place] [address] Mar, [facility] [place] [facility] [address] [id number] [address] [place] [address], [place] [address] Mar, [facility] [place] [facility] [address] [id number] [address] [place] [address], [place] [address] Mar, [facility] [place] [facility] [address] [id number] [address] [place] [address], [place] [address] Mar, [facility] [place] [facility] [address] [id number] [address] [place] [address], [place] [address] Mar, [facility] [place] [facility] [address] [id number] [address] [place] [address], [place] [address] Mar, [facility] [place] [facility] [address] [id number] [address] [place] [address], [place] [address] Mar, [facility] [place] [facility] [address] [id number] [address] [place] [address], [place] [address] Mar, [facility] [place] [facility] [address] [id number] [address] [place] [address], [place] [address] Mar, [facility] [place] [facility] [address] [id number] [address] [place] [address], [place] [address] Mar, [facility] [place] [facility] [address] [id number] [address] [place] [address], [place] [address] Feb, [facility] [place] [facility] [address] [id number] [address] [place] [address], [place] [address] Feb, [facility] [place] [facility] [address] [id number] [address] [place] [address], [place] [address] Feb, [facility] [place] [facility] [address] [id number] [address] [place] [address], [place] [address] Feb, [facility] [place] [facility] [address] [id number] [address] [place] [address], [place] [address] Jan, [facility] [place] [facility] [address] [id number] [address] [place] [address], [place] [address] Jan, [facility] [address] [id number] [facility] [place] [address] Jan, [facility] [place] [facility] [address] [id number] [address] [place] [address], [place] [address] Jan, [facility] [place] [facility] [address] [id number] [facility] [place] [address] Jan, [facility] [place] [facility] [address] [id number] [address] [place] [address], [place] [address] Jan, [facility] [place] [facility] [address] [id number] [facility] [place] [address] Dec, [facility] [place] [facility] [address] [id number] [address] [place] [address], [place] [address] Dec, [facility] [place] [facility] [address] [id number] [address] [place] [address], [place] [address] Nov, [facility] [place] [facility] [address] [id number] [address] [place] [address], [place] [address] Nov, [facility] [place] [facility] [address] [id number] [address] [place] [address], [place] [address] Nov, [facility] [place] [facility] [address] [id number] [address] [place] [address], [place] [address] Nov, [facility] [place] [facility] [address] [id number] [address] [place] [address], [place] [address] Nov, [facility] [place] [facility] [address] [id number] [address] [place] [address], [place] [address] Nov, [facility] [place] [facility] [address] [id number] [address] [place] [address], [place] [address] Sep, [facility] [place] [facility] [address] [id number] [address] [place] [address], [place] [address] Sep, [facility] [place] [facility] [address] [id number] [address] [place] [address], [place] [address] Sep, [facility] [place] [facility] [address] [id number] [address] [address] Sep, [facility] [place] [address] [id number] [address] [place] [address], [place] [address] Aug, [facility] [address] [id number] [address] [place] [address], [place] [address] Aug, [facility] [place] [address] [id number] [address] [place] [address], [place] [address] Jul, [facility] [address] [id number] [address] [place] [address], [place] [address] Jul, [facility] [address] [id number] [address] [place] [address], [place] [address] Jun, [facility] [place] [address] [id number] [address] [place] [address], [place] [address] Jun, [facility] [place] [address] [id number] [address] [place] [address], [place] [address] Jun, [facility] [place] [address] [id number] [address] [place] [address], [place] [address] Jun, [facility] [place] [address] [id number] [address] [place] [address], [place] [address] May, [facility] [address] [id number] [address] [place] [address], [place] [address] 24 May, 2013 [facility] [place] [address] [id number] [address] [place] [address], [place] [address] May, [facility] [address] [id number] [address] [place] [address], [place] [address] May, [facility] [address] [id number] [address] [place] [address], [place] [address] May, [facility] [address] [id number] [address] [place] [address], [place] [address] May, [facility] [address] [id number] [address] [place] [address], [place] [address] Apr, [facility] [address] [id number] [address] [place] [address], [place] [address] Apr, [facility] [place] [facility] [address] [id number] [address] [place] [address], [place] [address] Apr, [facility] [address] [id number] [address] [place] [address], [place] [address] Apr, [facility] [place] [facility] [address] [id number] [address] [place] [address], [place] [address] Mar, [facility] [address] [id number] [address] [place] [address], [place] [address] Mar, [facility] [address] [id number] [address] [place] [address], [place] [address] Mar, [facility] [address] [id number] [address] [place] [address], [place] [address] Mar, [facility] [address] [id number] [address] [place] [address], [place] [address] Feb, [facility] [address] [id number] [place] [id number] Jan, [facility] [address] [id number] [address] [place] [address], [place] [address] Jan, [facility] [address] [id number] [address] [place] [address], [place] [address] Dec, [facility] [place] [facility] [address] [id number] [address] [place] [address], [place] [address] Dec, [facility] [place] [facility] [address] [id number] [address] [place] [address], [place] [address] Dec, [facility] [address] [id number] [place] [id number] Dec, [facility] [place] [facility] [address] [id number] [address] [place] [address], [place] [address] Nov, [facility] [place] [facility] [address] [id number] [address] [place] [address], [place] [address] 14 Nov, 2012 [facility] [address] [id number] [address] [place] [address] Nov, [facility] [address] [id number] [address] [place] [address] Nov, [facility] [address] [id number] [address] [place] [address] Nov, [facility] [address] [id number] [address] [place] [address] October, [facility] [address] [id number] [address] [place] [address] October, [facility] [address] [id number] [address] [place] [address] Aug, [facility] [address] [id number] [address] [place] [address] Nov, IMMUNIZATIONS No Known Immunizations SOCIAL HISTORY Never Assessed REASON FOR VISIT bloodwork Tirso YEPEZ PLAN OF CARE VITAL SIGNS MEDICATIONS Unknown Medications RESULTS No Results PROCEDURES Procedure Date Ordered Result Body Site VENIPUNCT, ROUTINE* Jan 18, 2017 LAB NOT BILLED BY [facility] Jan 18, 2017 INSTRUCTIONS MEDICATIONS ADMINISTERED No Known Medications [...]
--- OUTSIDE RECORDS SUMMARY | 2019-11-29 09:45 | XMS REPORT ---
Author Author Curt REBOLLAR [facility] eClinicalWorks Address Unknown Phone Unavailable Care Team Providers Care Check Writing Machine Operator Name Role Phone QUINTIN REBOLLAR CP Unavailable Allergies, Adverse Reactions, Alerts Substance Reaction Event Type Wheat throat swells Non Drug Allergy Egg White throat swells Non Drug Allergy Cows Milk throat swells Non Drug Allergy Peanuts throat swells Non Drug Allergy Tenerius [place] throat swells Non Drug Allergy [place] throat swells Non Drug Allergy Ragweed throat [...] patient &/family, 30 minutes, established patient CPT-4 [id number] May 11, 2015 Results No Known Results Summary Purpose eClinicalWorks Submission
--- OUTSIDE RECORDS SUMMARY | 2019-11-29 09:45 | XMS REPORT ---
Author Author Curt REBOLLAR Organization [facility] Address [address] [place] [address] Care Team Providers Care Underwriting Assistant Name Role Phone QUINTIN REBOLLAR Unavailable PROBLEMS Type Condition ICD9-CM Code [id number] Code Onset Dates Condition S tatus SNOMED Code Problem Major depression F32.9 Active 370 255850 Problem Morbid obesity E66.01 Active 09010 6002 Problem Benign essential hypertension I10 Active 5198846 Problem Insomnia G47.00 Active 715377498 Problem Hyperlipemia E78.5 Active 0326075 4 Problem Acute bacterial conjunctivitis of left eye H10.32 Active 272838851 Problem Recurrent major depressive disorder, in partial remission F33.41 Active 99358479 Problem Edema R60.9 Active 523252758 Problem Type II diabetes mellitus E11.9 Acti ve 92003092 Problem Callus of foot L84 Active 69839 1005 Problem Renal insufficiency N28.9 Active 876973860 ALLERGIES Substance Reaction Event Type Date Status Wheat throat swells Non Drug Allergy Jun, Active Egg White throat swells Non Drug Allergy Jun, Active Cows Milk throat swells Non Drug Allergy Jun, Active Peanuts throat swells Non Drug Allergy Jun, Active Tenerius Rossiter throat swells Non Drug Allergy Jun, Active [place] throat swells Non Drug Allergy Jun, Active Ragweed throat swells Non Drug Allergy Jun, Active SOCIAL HISTORY No smoking Hx information available PLAN OF CARE Activity Details Follow Up 4 Weeks Reason:depression, w eight loss VITAL SIGNS MEDICATIONS Unknown Medications RESULTS No Results PROCEDURES Procedure Date Ordered Related Diagnosis Body Site Psychotherapy, patient &/family, 30 minutes, established patient Jun 29, 2016 IMMUNIZATIONS No Known Immunizations
--- OUTSIDE RECORDS SUMMARY | 2019-11-29 09:45 | XMS REPORT ---
Author Curt Hess [facility] eClinical[employer] Address Unknown Phone Unavailable Care Team Providers Care Pot Builder Name Role Phone CHRIS DIAZ Unavailable Allergies, Adverse Reactions, Alerts Substance Reaction Event Type Wheat throat swells Non Drug Allergy Egg White throat swells Non Drug Allergy Cows Milk throat swells Non Drug Allergy Peanuts throat swells Non Drug Allergy Tenerius Black Hat throat swells Non Drug Allergy [place] throat swells Non Drug Allergy Ragweed throat swells Non Drug Allergy Problems Problem Type Condition Code Onset Dates Condition Statu s Assessment Benign essential hypertension I10 Active Problem Hyperlipemia E78.5 Active Assessment Type II diabetes mellitus E11.9 Ac tive Assessment Renal insufficiency N28.9 Active Assessment Edema R60.9 Active Problem Renal insufficiency N28.9 Active Problem Type II diabetes mellitus E11.9 Ac tive Problem Edema R60.9 Active Problem Insomnia G47.00 Active Problem Major depression F32.9 Active Problem Morbid obesity E66.01 Active Problem Benign essential hypertension I10 Active Medications Medication Code System Code Instructions Start Date End Date Status Dosage Singulair [facility] 65262144414 10 MG 1 Tablet b y Oral route 1 time per day take 1 tablet by mouth 1 time per day Flonase [facility] [address]-06 50 mcg/actuation November 29, 2013 inhale 1 spray (50 mcg) in each nostril by intranasal route 2 times per day Atenolol [facility] [address]-98 100 MG Orally Once a day August 21, 2014 1 tablet by Oral route 1 time per day Meloxicam [facility] 78525541234 15 MG 1 take 1 t ablet by mouth 1 time per day Omeprazole [facility] [address]-77 20 MG Orally Once a day 1 capsule MetFORMIN HCl ER (MOD) [facility] [address]-80 1000 MG Orally tw ice a day January 08, 2015 1 tablet with evenin g meal Tricor [facility] 25466003563 145 MG 1 tablet by Oral route 1 time per day [facility] Flovent HFA [facility] [address]-07 110 mcg/actuation October 23, 2012 1-3 Puffs 1 time per day Brintellix [facility] [address]-23 20 MG Orally Once a day for one w [place] November 18, 2014 1 tablet Furosemide [facility] [address]-08 20 MG Orally Once a day TAKE 1 tablet Lisinopril [facility] [address]-09 40 MG Orally Once a day August 21, 2014 1 Tablet by Oral route 1 time per day Procedures Procedure Coding System Code Date Office Visit, Est Pt., Level 4 CPT-4 54931 N 2014 GLYCATED HEMOGLOBIN TEST CPT-4 11021 Apr 20, 2015 Vital Signs Date/Time: Apr 20, 2015 Temperature 97.2 F Weight 456 lbs Height 72 in BMI 61.84 Index Blood Pressure Diastolic 88 mmHg Blood Pressure Systolic 126 mmHg Cardiac Monitoring Heart Rate 74 bpm Results Name Result Date Reference Range Unit Abnormali ty Flag A1C (IN HOUSE) Summary Purpose eClinicalWorks Submission
--- OUTSIDE RECORDS SUMMARY | 2019-11-29 09:45 | XMS REPORT ---
Author Author Curt DIAZ Organization [facility] Address [address] [place] [address] Care Team Providers Care Facility Rehab Director Name Role Phone CHRIS DIAZ Unavailable PROBLEMS Type Condition ICD9-CM Code [id number] Code Onset Dates Condition S tatus SNOMED Code Problem Major depression F32.9 Active 370 421285 Problem Morbid obesity E66.01 Active 53065 6002 Problem Benign essential hypertension I10 Active 5336114 Problem Insomnia G47.00 Active 955555860 Problem Hyperlipemia E78.5 Active 9089386 4 Problem Acute bacterial conjunctivitis of left eye H10.32 Active 008551687 Problem Recurrent major depressive disorder, in partial remission F33.41 Active 58815083 Problem Edema R60.9 Active 081949431 Problem Type II diabetes mellitus E11.9 Acti ve 52176906 Problem Callus of foot L84 Active 51300 1005 Problem Renal insufficiency N28.9 Active 510712403 ALLERGIES No Information SOCIAL HISTORY Never Assessed [...]
--- OUTSIDE RECORDS SUMMARY | 2019-11-29 09:45 | XMS REPORT ---
Author Author ATILIO Curt [facility] eClinicalWorks Address Unknown Phone Unavailable Care Team Providers Care [employer] Member Name Role Phone [facility] Unavailable Allergies No Known Allergies Problems Problem Type Condition ICD-9 Code Onset Dates Condition Statu s Problem Anxiety state, unspecified 300.00 A ctive Problem Major depressive disorder, r ecurrent episode, in partial or unspecified remission 296.35 Active Problem Unspecified sleep apnea 780.57 Acti ve Assessment Depression, major, recurrent, moderate 296.32 Active Problem Hyperlipemia 272.4 Active Problem Benign essential hypertension 401.1 Active Problem Metabolic syndrome 277.7 Active Problem Chronic rhinitis 472.0 Active Problem Morbid obesity 278.01 Active Problem Edema 782.3 Active Problem Insomnia, unspecified 780.52 Active Medications No Known Medications Procedures Procedure Coding System Code Date [facility] CPT-4 S0280 Jan 27, 2015 Results No Known Results Summary Purpose eClinicalWorks Submission
--- OUTSIDE RECORDS SUMMARY | 2019-11-29 09:45 | XMS REPORT ---
Author Author Curt DIAZ Organization [facility] Address [address] [place] [address] Care Team Providers Care [employer] Compliance Officer Name Role Phone CHRIS DIAZ Unavailable PROBLEMS Type Condition ICD9-CM Code [id number] Code Onset Dates Condition S tatus SNOMED Code Problem Major depression F32.9 Active 370 922753 Problem Morbid obesity E66.01 Active 47931 6002 Problem Benign essential hypertension I10 Active 3514909 Problem Insomnia G47.00 Active 970844967 Problem Hyperlipemia E78.5 Active 7311082 4 Problem Acute bacterial conjunctivitis of left eye H10.32 Active 105702155 Problem Recurrent major depressive disorder, in partial remission F33.41 Active 63572205 Problem Edema R60.9 Active 172784312 Problem Type II diabetes mellitus E11.9 Acti ve 02170041 Problem Callus of foot L84 Active 47294 1005 Problem Renal insufficiency N28.9 Active 495196825 ALLERGIES No Information SOCIAL HISTORY Never Assessed PLAN OF CARE VITAL SIGNS MEDICATIONS Medication Instructions Dosage Frequency Start Date End Date Duration S tatus Omeprazole 40 MG Orally Once a day 1 tablet 24h 0 da ys Active RESULTS No Results PROCEDURES No Known [...]
--- OUTSIDE RECORDS SUMMARY | 2019-11-29 09:45 | XMS REPORT ---
Author Author Curt DIAZ [facility] Address [address] [place] [address] Care Team Providers Care Compensator Name Role Phone JOE CHRIS Unavailable PROBLEMS Type Condition ICD9-CM Code [id number] Code Onset Dates Condition S tatus SNOMED Code Problem Callus of foot L84 Active 88727 1005 Problem Acute bacterial conjunctivitis of left eye H10.32 Active 951639742 Problem Recurrent major depressive disorder, in partial remission F33.41 Active 35456456 Problem BMI 45.0-49.9, adult Z68.42 Active 213104172 Problem Mixed obsessional thoughts and acts F42.2 Active 56534251 Problem Severe episode of recurrent major depressive disorder, without psychotic features F33.2 Active 66626896 Problem Metabolic syndrome E88.81 Active 2 01754526 Problem Vitamin D deficiency E55.9 Active 38791623 Problem Anxiety F41.9 Active 89055467 Problem Insomnia G47.00 Active 007509426 Problem Major depression F32.9 Active 370 543677 Problem Morbid obesity E66.01 Active 87798 6002 Problem Benign essential hypertension I10 Active 7494736 Problem Hyperlipemia E78.5 Active 4205612 4 Problem Renal insufficiency N28.9 Active 138215391 Problem Type II diabetes mellitus E11.9 Acti ve 95633184 Problem Edema R60.9 Active 354295829 ALLERGIES No Information ENCOUNTERS Encounter Location Date Diagnosis [facility] [address] [facility] [id number] [address] [place] [address] Nov, [facility] [address] [facility] [id number] [place] [address] [id number] October, [facility] [address] [facility] [id number] [address] [place] [address] October, BMI 45.0-49.9, adult Z68.42 ; Mixed obsessional thoughts and acts F42.2 ; Recurrent major depressive disorder, in partial remission F33.41 ; Major depression F32.9 ; Anxiety F41.9 ; Insomnia G47.00 and Irritable mood R45.4 [facility] [address] [id number], [place] [id number] October, Benign essential hypertension I10 ; Morb id obesity E66.01 and BMI 45.0-49.9, adult Z68.42 [facility] [address] [id number], [place] [id number] Sep, [facility] [address] [place] [address] AVE [id number], [place] [id number] Sep, [facility] [address] [id number], [place] [id number] Sep, [facility] [address] [id number] [place] [address] [id number] Sep, Hospital discharge follow-up Z09 ; Aller gic rhinitis, unspecified seasonality, unspecified trigger J30.9 and Shortness of breath R06.02 [facility] [place] [address] [place] [address] AVE [id number], [place] [id number] Sep, Recurrent major depressive disorder, in partial remission F33.41 [facility] [address] [id number], [place] [id number] Aug, Irritable mood R45.4 [place] [address] [place] [address] Aug, [facility] [address] [id number], [place] [phone] Jul, Benign essential hypertension I10 ; Robert a R60.9 and Impacted cerumen of left ear H61.22 [place] [address] [facility] [id number] [address] [place] [phone] 14 Jul, 2017 Major depression F32.9 ; Rec urrent major depressive disorder, in partial remission F33.41 and Anxiety F41.9 [place] [address] [facility] [id number] [address] [place] [address] Jun, Major depression F32.9 ; Rec urrent major depressive disorder, in partial remission F33.41 and Anxiety F41.9 [facility] [address] [id number], [place] [id number] Jun, Major depression F32.9 ; Morbid obesity E66.01 ; Irritable mood R45.4 ; Hand weakness R29.898 and Vitamin D deficiency E55.9 [facility] [address] [id number], [place] [id number] Jun, [facility] [id number] [place] [address] [id number] May, Major depression F32.9 [place] [address] [facility] [id number] [address] [place] [address] May, Major depression F32.[address] [place] [address] [id number], [place] [id number] May, BMI 50.0-59.9, adult Z68.43 ; Major depr ession F32.9 ; Anxiety F41.9 ; Hypertrophic toenail L60.2 and Pain of left great toe M79.[address] [place] [id number] [place] [address] [id number] May, Recurrent major depressive disorder, in partial remission F33.41 [place] [address] [facility] [id number] [address] [place] [address] Apr, [facility] [address] [id number], [place] [id number] Apr, [place] [address] [facility] [id number] [address] [place] [address] Apr, Major depression F32.9 [facility] [address] [id number], [place] [id number] Apr, Severe episode of recurrent major depres sive disorder, without psychotic features F33.2 ; Anxiety F41.9 and Insomnia G47.00 [facility] [address] [id number], [place] [id number] Apr, [facility] [address] [facility] [id number] [address] [place] [address] Apr, [facility] [address] [id number], [place] [id number] Apr, [facility] [address] [id number], [place] [id number] Mar, [place] [id number] [place] [address] [id number] Mar, Allergic conjunctivitis of both eyes H10 .13 [place] [address] [facility] [id number] [address] [place] [address] Mar, Major depression F32.[id number] [place] [address] [id number] Mar, Metabolic syndrome E88.81 ; History of g astric bypass Z98.890 ; Benign essential hypertension I10 and Allergic conjunctivitis of both eyes H10.13 [place] [address] [place] [id number] [address] [place] [address] Mar, Major depression F32.9 [place] [address] [facility] [address] [id number], [place] [id number] Feb, [place] [address] [facility] [id number] [address] [place] [address] Feb, Major depression F32.9 [place] [address] [facility] [address] [id number], [place] [id number] Feb, Subacute maxillary sinusitis J01.00 and Bronchitis J40 [place] [address] [facility] [id number] [address] [place] [address] 06 Feb, 2017 Major depressive disorder, r ecurrent, moderate F33.[address] [place] [id number] [place] [address] [id number] Jan, [facility] [address] [facility] [address] [id number], [place] [id number] Jan, Acute non-recurrent maxillary sinusitis J01.00 and Skin tag L91.8 [facility] [address] [id number], [place] [id number] Jan, Cough R05 and Sinus congestion R09.81 [facility] [place] [address] [place] [address] AVE [id number], [place] [id number] Jan, [facility] [place] [address] [place] [address] AVE [id number], [place] [id number] Jan, Benign essential hypertension I10 ; Hist ory of gastric bypass Z98.890 and Nausea and vomiting in adult R11.2 [place] [address] [address] 04 Jan, 2017 Major depressive disorder, r ecurrent, moderate F33.1 [place] [address] [place] [id number] [place] [address] 12 Dec, 2016 Insomnia G47.00 ; Recurrent major depressive disorder, in partial remission F33.41 and Morbid obesity E66.01 [facility] [place] [address] [place] [address] AVE [id number], [place] [id number] Dec, [facility] [address] [id number], [place] [id number] Dec, Chronic bacterial conjunctivitis of left eye H10.402 [facility] [address] [facility] [address] [id number], [place] [id number] Nov, [facility] [address] [id number], [place] [id number] Nov, Dental examination Z01.20 [facility] [address] [address] [id number], [place] [id number] Nov, Benign essential hypertension I10 ; Hist ory of gastric bypass Z98.890 and Nausea and vomiting in adult R11.2 [place] [address] [place] [id number] [address] [place] [address] 13 Nov, 2016 Major depressive disorder, r ecurrent, moderate F33.1 ; Generalized anxiety disorder F41.1 and Insomnia due to other mental disorder F51.05 [place] [address] [place] [id number] [address] [place] [address] Nov, Recurrent major depressive d isorder, in partial remission F33.41 ; Insomnia G47.00 and Morbid obesity E66.01 [facility] [address] [id number] [place] S [id number] October, Abscess of left arm L02.414 [place] [id number] [place] [address] October, Morbid obesity E66.01 ; Lida r depression F32.9 and Recurrent major depressive disorder, in partial remission F33.[address] [place] [id number] [place] [address] [id number] Sep, Benign essential hypertension I10 ; Morb id obesity E66.01 ; S/P gastric bypass Z98.84 ; Abscess L02.91 and Chronic bacterial conjunctivitis of left eye H10.[id number] [place] [address] [id number] Sep, Dental examination Z01.20 [place] [id number] [address] [place] [address] Sep, Morbid obesity E66.01 ; Lida r depression F32.9 and Recurrent major depressive disorder, in partial remission F33.41 [place] [address] [place] [address] Jul, [place] [id number] [address] [place] [address] Jul, Major depressive disorder, r ecurrent, moderate F33.1 [place] [address] [place] [id number] [address] [place] [address] Jul, Major depressive disorder, r ecurrent, moderate F33.1 and Generalized anxiety disorder F41.1 [facility] [address] [id number], [place] [id number] Jul, Cough R05 [facility] [address] [facility] [id number] [address] [place] [address] Jul, Morbid obesity E66.01 ; Lida r depression F32.9 and Recurrent major depressive disorder, in partial remission F33.41 [facility] [address] [id number], [place] [id number] Jul, [place] [address] [facility] [id number] [place] [address] [id number] Jul, [address] [id number] [place] [address] [id number] Jul, Gastroenteritis K52.9 and Cough R05 [address] [id number] [place] [address] [id number] Jun, Acute bacterial conjunctivitis of left e ye H10.32 [facility] [address] [place] [address] Jun, [facility] [address] [place] [id number] [address] [place] [address] Jun, Recurrent major depressive d isorder, in partial remission F33.41 [facility] [address] [place] [id number] [address] [place] [address] May, Major depression F32.9 and M orbid obesity E66.01 [facility] [address] [facility] [id number] [address] [place] [address] May, [facility] [address] [facility] [address] [id number] [place] [address] [id number] May, Thrush B37.0 [facility] [address] [facility] [id number] [address] [place] [phone] Apr, Major depressive disorder, r ecurrent, moderate F33.1 [place] [address] [facility] [id number] [address] [place] [address] 15 Apr, 2016 Insomnia G47.00 ; Major depr ession F32.9 and Recurrent major depressive disorder, in partial remission F33.41 [facility] [address] [facility] [id number] [address] [place] [address] 11 Apr, 2016 [place] [address] [facility] [id number] [address] [place] [address] 02 Apr, 2016 Major depression F32.9 and R ecurrent major depressive disorder, in partial remission F33.41 [facility] [address] [id number], [place] [id number] Mar, Benign essential hypertension I10 ; Morb id obesity E66.01 ; Impacted cerumen of both ears H61.23 ; Laceration of finger of right hand, initial encounter S61.219A and Encounter for immunization Z23 [place] [address] [facility] [id number] [address] [place] [phone] 17 Mar, 2016 [place] [address] [facility] [id number] [address] [place] [phone] Mar, [place] [address] [facility] [id number] [address] [place] [address] Mar, [facility] [address] [id number], [place] [id number] Feb, Nausea R11.0 ; Blood in the stool K92.1 and Benign essential hypertension I10 [place] [address] [facility] [id number] [address] [place] [address] Feb, Major depression F32.9 and R ecurrent major depressive disorder, in partial remission F33.41 [facility] [address] [id number], [place] [id number] Feb, [facility] [place] [address] [id number], [place] [id number] Feb, Recurrent major depressive disorder, in partial remission F33.41 [facility] [address] [id number], [place] [id number] Jan, [facility] [address] [id number], [place] [id number] Jan, Benign essential hypertension I10 ; Robert a R60.9 and Hyperlipidemia, unspecified hyperlipidemia type E78.5 [facility] [address] [id number], [place] [id number] Jan, Recurrent major depressive disorder, in partial remission F33.41 [facility] [place] [address] [id number] [place], [place] [id number] Jan, [facility] [address] [id number], [place] [id number] Jan, [facility] [address] [address] [id number], [place] [id number] Jan, [facility] [address] [facility] [id number] [address] [place] [address] Jan, [facility] [address] [facility] [id number] [address] [place] [address] Dec, [facility] [address] [facility] [id number] [address] [place] [phone] Nov, [facility] [address] [facility] [id number] [address] [place] [address] Nov, Major depression F32.9 [facility] [address] [facility] [id number] [address] [place] [address] Nov, [facility] [address] [facility] [id number] [address] [place] [address] Nov, [facility] [address] [facility] [id number] [address] [place] [address] Nov, Major depressive disorder, r ecurrent episode, mild F33.0 and Anxiety F41.9 [facility] [address] [id number], [place] [id number] Nov, [facility] [address] [address] [id number], [place] [id number] October, Left elbow pain M25.522 and Other season al allergic rhinitis J30.[address] [id number], [place] [id number] October, [facility] [address] [facility] [id number] [address] [place] [address] October, Major depressive disorder, r ecurrent, moderate F33.1 [facility] [address] [facility] [id number] [address] [place] [address] October, Major depression F32.9 [place] [address] [facility] [id number] [address] [place] [phone] Sep, [place] or callus L84 and Onych omycosis B35.1 [place] [address] [facility] [id number] [address] [place] [address] Sep, Major depressive disorder, r ecurrent, moderate F33.1 [facility] [address] [facility] [id number] [address] [place] [address] Sep, Major depression F32.9 [place] [address] [facility] [id number] [address] [place] [address] Sep, Moderate episode of recurren t major depressive disorder F33.1 [address] [id number], [place] [id number] Sep, Muscle strain T14.8 [facility] [address] [facility] [id number] [address] [place] [address] Aug, Major depression F32.9 [facility] [address] [facility] [id number] [address] [place] [address] Aug, Major depression F32.9 [facility] [address] [facility] [id number] [address] [place] [address] 24 Jul, 2015 Morbid obesity E66.01 and Ma cora depression F32.9 [facility] [address] [facility] [id number] [address] [place] [phone] 24 Jul, 2015 Depression, major, recurrent , moderate F33.[address] [id number], [place] [id number] Jul, [facility] [address] [facility] [id number] [address] [place] [address] Jul, [facility] [address] [facility] [id number] [address] [place] [address] Jul, Major depression F32.9 and M orbid obesity E66.[id number] [place] [address] [id number] Jul, Type II diabetes mellitus E11.9 ; Callus of foot L84 ; Benign essential hypertension I10 and Renal insufficiency N28.9 [place] [address] [place] [address] Jul, Depression, major, recurrent , moderate F33.1 [place] [address] [facility] [id number] [address] [place] [address] Jul, Major depression F32.9 [place] [address] [place] [id number] [address] [place] [address] Jul, [place] [address] [place] [id number] [address] [place] [address] Jun, Major depression F32.9 [place] [address] [facility] [id number] [address] [place] [phone] Jun, Major depressive disorder, r ecurrent, moderate F33.1 [place] [address] [facility] [id number] [address] [place] [address] Jun, [facility] [address] [facility] [id number] [address] [place] [address] Jun, Major depressive disorder, r ecurrent, moderate F33.1 and Major depression F32.[address] [id number], [place] [id number] Jun, Type II diabetes mellitus E11.9 [place] [address] [place], [place] [address] Jun, Depression, major, recurrent , moderate F33.1 [place] [address] [place] [id number] [address] [place] [address] May, Major depressive disorder, r ecurrent, moderate F33.1 [place] [address] [place] [id number] [address] [place] [phone] May, [id number] [place] [id number] May, Edema R60.[address] [place] [phone] May, Insomnia G47.00 and Major de pression F32.[address] [place] [id number] [place] [id number] May, Morbid obesity E66.01 ; Edema R60.9 ; Sh ortness of breath R06.02 ; Benign essential hypertension I10 and Renal insufficiency N28.[address] [id number] [id number] May, Hyperlipemia 272.4 and Renal insufficien cy N28.9 [place] [address] [address] [place] [id number] [address] [place] [phone] Apr, Major depression F32.9 [place] [address] [address] [facility] [id number] [address] [place] [phone] Apr, [place] [address] [address] [place] [id number] [address] [place] [phone] Apr, Major depressive disorder, r ecurrent, moderate F33.[address] [id number] [id number] Apr, Type II diabetes mellitus E11.9 ; Benign essential hypertension I10 ; Edema R60.9 and Renal insufficiency N28.9 [facility] [address] [place] [id number] [address] [place] [phone] Mar, Major depressive disorder, r ecurrent, moderate F33.1 [facility] [address] [facility] [id number] [address] [place] [phone] Mar, [facility] [address] [place] [id number] [place] [phone] Mar, Major depression F32.9 [facility] [id number] [place] [id number] Mar, Morbid obesity E66.01 ; Benign essential hypertension I10 and Type II diabetes mellitus E11.9 [place] [address] N [place] [id number] [address] [place] [address] Feb, Major depressive disorder, r ecurrent, moderate F33.1 [place] [address] [place] [id number] [address] [place] [address] Feb, Major depressive disorder, r ecurrent episode, in partial or unspecified remission 296.35 ; Anxiety state, unspecified 300.00 and Morbid obesity 278.01 [place] [address] [place] [id number] [address] [place] [address] Feb, [facility] [address] [id number] [id number] Feb, Vomiting 787.03 and Viral syndrome 079.9 9 [place] [address] [place] [id number] [address] [place] [address] 15 Feb, 2015 Major depression, recurrent 296.30 ; Generalized anxiety disorder 300.02 and No condition on Salem II V71.09 [facility] [address] [id number] [id number] Feb, Skin tag 701.9 [place] [address] [place] [id number] [address] [place] [address] Feb, [place] [address] [facility] [id number] [address] [place] [address] Jan, Depression, major, recurrent , moderate 296.[address] [id number][place] [id number] Jan, Nausea and vomiting 787.01 ; Rib pain on right side 786.50 and Fall on or from sidewalk curb E880.1 [facility] [address] [place] [id number] [address] [place] [address] Jan, [facility] [address] [place] [id number] [address] [place] [address] Jan, Major depressive disorder, r ecurrent episode, in partial or unspecified remission 296.35 and Anxiety state, unspecified 300.[address] [id number] [place] [id number] Jan, [facility] [address] [place] [id number] [address] [place] [address] Jan, Depression, major, recurrent , moderate 296.32 [place] [address] [place] [id number] [address] [place] [address] Jan, Major depression, recurrent 296.30 ; No condition on Salem II V71.09 and No condition on axis III V71.[address] [id number][place] [id number] Jan, Drug-induced nausea and vomiting 787.01 [facility] [address] [place] [id number] [address] [place] [address] Jan, Depression, major, recurrent , moderate 296.[address] [id number] [address] [place] [address] Dec, Depression, major, recurrent , moderate 296.[address] [id number][place] [id number] Dec, Morbid obesity 278.01 ; Metabolic syndro me 277.7 ; Hyperlipemia 272.4 ; Benign essential hypertension 401.1 ; Dietary counseling V65.3 ; Exercise counseling V65.41 and Inflamed skin tag 701.9 [place] [address] [address] Dec, Depression, major, recurrent , moderate 296.32 [place] [address] [address] Dec, [address] [id number] Dec, Major depression, recurrent 296.30 ; Anxiety, generalized 300.02 and No condition on Salem II V71.09 [place] [id number] Dec, Depression, major, recurrent , moderate 296.32 [place] [address] [address] Dec, Major depressive disorder, r ecurrent episode, moderate 296.32 [place] [address] [address] Dec, Depression, major, recurrent , moderate 296.32 [place] [address] [address] Dec, Depression, major, recurrent , moderate 296.32 [place] [address] [address] Dec, Depression, major, recurrent , moderate 296.32 [place] [address] [address] Dec, Depression, major, recurrent , moderate 296.[address] [address] Nov, Depression, major, recurrent , moderate 296.32 [place] [address] [address] Nov, Major depression 296.20 ; So cial phobia 300.23 and No condition on [place] II V71.09 [facility] [address] [facility] [id number] [address] [place] [address] 16 Nov, 2014 Depression, major, recurrent , moderate 296.32 [facility] [address] [facility] [id number] [address] [place] [address] 09 Nov, 2014 Major depressive disorder, r ecurrent episode, moderate 296.32 and Generalized anxiety disorder 300.02 [facility] [address] [facility] [id number] [address] [place] [address] 09 Nov, 2014 Depression, major, recurrent , moderate 296.32 [facility] [address] [facility] [id number] [address] [place] [id number] 04 Nov, 2014 Depression, major, recurrent , moderate 296.32 [facility] [address] [facility] [id number] [address] [place] [address] October, Generalized anxiety disorder 300.02 ; No condition on [place] II V71.09 and Major depressive disorder, recurrent 296.30 [facility] [address] [facility] [id number] [address] [place] [address] 14 Sep, 2014 [facility] [address] [facility] [id number] [address] [place] [address] Sep, [facility] [address] [facility] [id number] [address] [place] [id number] 24 Aug, 2014 [facility] [address] [facility] [id number] [address] [place] [address] 24 Aug, 2014 [facility] [address] [facility] [id number] [address] [place] [address] Aug, [facility] [address] [facility] [id number] [address] [place] [id number] Aug, [facility] [address] [facility] [id number] [address] [place] [address] Aug, [facility] [address] [facility] [id number] [address] [place] [address] Aug, [facility] [address] [id number] [address] [place] [address], [place] [address] 20 Aug, 2014 [facility] [address] [id number] [address] [place] [address], [place] [address] 20 Aug, 2014 [facility] [address] [id number] [address] [place] [address], [place] [address] 13 Aug, 2014 [facility] [address] [id number] [address] [place] [address], [place] [address] 13 Aug, 2014 [facility] [address] [id number] [address] [place] [address], [place] [address] 13 Aug, 2014 [facility] [address] [id number] [address] [place] [address], [place] [address] 13 Aug, 2014 [facility] [address] [id number] [address] [place] [address], [place] [address] Aug, [facility] [address] [id number] [address] [place] [address], [place] [address] Aug, [facility] [address] [id number] [address] [place] [address], [place] [address] 10 Aug, 2014 [facility] [address] [id number] [address] [place] [address], [place] [address] 10 Aug, 2014 [facility] [address] [id number] [address] [place] [address], [place] [address] Aug, [facility] [address] [id number] [address] [place] [address], [place] [address] Aug, [facility] [address] [id number] [address] [place] [address], [place] [address] 24 Jul, 2014 [facility] [address] [id number] [address] [place] [address], [place] [address] 24 Jul, 2014 [facility] [address] [id number] [address] [place] [address], [place] [address] 16 Jul, 2014 [facility] [address] [id number] [address] [place] [id number] Jul, [facility] [address] [id number] [address] [place] [address], [place] [address] Jul, [facility] [address] [id number] [address] [place] [address], [place] [address] Jul, [facility] [address] [id number] [address] [place] [address], [place] [address] Jun, [facility] [address] [id number] [address] [place] [address], [place] [address] Jun, [facility] [address] [id number] [address] [place] [address], [place] [address] Jun, [facility] [address] [id number] [address] [place] [address], [place] [address] Jun, [facility] [address] [id number] [address] [place] [address], [place] [address] Jun, [facility] [address] [id number] [address] [place] [address], [place] [address] Jun, [facility] [address] [id number] [address] [place] [address], [place] [address] Jun, [facility] [address] [id number] [address] [place] [address], [place] [address] Jun, [facility] [address] [id number] [address] [place] [address] Jun, [facility] [address] [id number] [address] [place] [address] Jun, [facility] [address] [id number] [address] [place] [address] Jun, [facility] [address] [id number] [address] [place] [address], [place] [address] Jun, [facility] [place] [address] [id number] [place] [id number] Jun, [facility] [address] [id number] [address] [place] [address], [place] [address] Jun, [facility] [address] [id number] [address] [place] [address], [place] [address] Jun, [facility] [address] [id number] [address] [place] [address], [place] [address] Jun, [facility] [address] [id number] [address] [place] [address], [place] [address] May, [facility] [address] [id number] [address] [place] [address], [place] [address] May, [facility] [address] [id number] [address] [place] [address], [place] [address] May, [facility] [address] [id number] [address] [place] [address], [place] [address] May, [facility] [address] [id number] [address] [place] [address], [place] [address] Apr, [facility] [address] [id number] [address] [place] [address], [place] [address] Apr, [facility] [address] [id number] [address] [place] [address], [place] [address] Apr, [facility] [address] [id number] [address] [place] [address], [place] [address] Apr, [facility] [address] [id number] [address] [place] [address], [place] [address] Apr, [facility] [address] [id number] [address] [place] [address], [place] [address] Apr, [facility] [address] [id number] [address] [place] [address], [place] [address] Apr, [facility] [address] [id number] [address] [place] [address], [place] [address] Apr, [facility] [address] [id number] [address] [place] [address], [place] [address] Apr, [facility] [address] [id number] [address] [place] [address], [place] [address] Apr, [facility] [address] [id number] [address] [place] [address], [place] [address] Apr, [facility] [address] [id number] [address] [place] [address], [place] [address] Apr, [facility] [address] [id number] [address] [place] [address], [place] [address] Apr, [facility] [address] [id number] [address] [place] [address], [place] [address] Apr, [facility] [address] [id number] [address] [place] [address], [place] [address] Apr, [facility] [address] [id number] [address] [place] [address], [place] [address] Apr, [facility] [address] [id number] [address] [place] [address], [place] [address] Apr, [facility] [address] [id number] [address] [place] [address], [place] [address] Apr, [facility] [address] [id number] [address] [place] [id number] Apr, [facility] [address] [id number] [address] [place] [address], [place] [address] Apr, [facility] [address] [id number] [address] [place] [address] Mar, [facility] [address] [id number] [address] [place] [address], [place] [address] Mar, [facility] [address] [id number] [address] [place] [address], [place] [address] Mar, [facility] [address] [id number] [address] [place] [address], [place] [address] Mar, [facility] [address] [id number] [address] [place] [address], [place] [address] Mar, [facility] [address] [id number] [address] [place] [address], [place] [address] Mar, [facility] [address] [id number] [address] [place] [address], [place] [address] Mar, [facility] [address] [id number] [address] [place] [address], [place] [address] Mar, [facility] [address] [id number] [address] [place] [address], [place] [address] Mar, [facility] [address] [id number] [address] [place] [address], [place] [address] Mar, [facility] [address] [id number] [address] [place] [address], [place] [address] Feb, [facility] [address] [id number] [address] [place] [address], [place] [address] Feb, [facility] [address] [id number] [address] [place] [address], [place] [address] Feb, [facility] [address] [id number] [address] [place] [address], [place] [address] Feb, [facility] [address] [id number] [address] [place] [address], [place] [address] Jan, [facility] [address] [id number] [address] [place] [address], [place] [address] Jan, [facility] [address] [id number] [address] [place] [address], [place] [address] Jan, [facility] [address] [id number] [address] [place] [address], [place] [address] Jan, [facility] [address] [id number] [address] [place] [address], [place] [address] Jan, [facility] [address] [id number] [address] [place] [address], [place] [address] Jan, [facility] [address] [id number] [facility] [place] [address] Dec, [facility] [address] [id number] [facility] [place] [address] Dec, [facility] [address] [id number] [facility] [place] [address] Nov, [facility] [address] [id number] [address] [place] [address], [place] [address] Nov, [facility] [address] [id number] [address] [place] [address], [place] [address] Nov, [facility] [address] [id number] [address] [place] [address], [place] [address] Nov, [facility] [address] [id number] [address] [place] [address], [place] [address] Nov, [facility] [address] [id number] [address] [place] [address], [place] [address] Nov, [facility] [address] [id number] [address] [place] [address], [place] [address] Sep, [facility] [address] [id number] [address] [place] [address], [place] [address] Sep, [facility] [address] [id number] [address] [place] [address], [place] [address] Sep, [facility] [address] [id number] [address] [place] [address], [place] [address] Sep, [facility] [address] [id number] [address] [place] [address], [place] [address] Aug, [facility] [address] [id number] [address] [place] [address], [place] [address] Aug, [facility] [address] [id number] [address] [place] [address], [place] [address] Jul, [facility] [address] [id number] [address] [place] [address], [place] [address] 14 Jul, 2013 [facility] [address] [id number] [address] [place] [address], [place] [address] Jun, [facility] [address] [id number] [address] [place] [address], [place] [address] Jun, [facility] [address] [id number] [address] [place] [address], [place] [address] Jun, [facility] [address] [id number] [address] [place] [address], [place] [address] Jun, [facility] [address] [id number] [address] [place] [address], [place] [address] May, [facility] [address] [id number] [address] [place] [address], [place] [address] May, [facility] [address] [id number] [address] [place] [address], [place] [address] May, [facility] [address] [id number] [address] [place] [address], [place] [address] May, [facility] [address] [id number] [address] [place] [address], [place] [address] May, [facility] [address] [id number] [address] [place] [address], [place] [address] May, [facility] [address] [id number] [address] [place] [address], [place] [address] Apr, [facility] [address] [id number] [address] [place] [id number] Apr, [facility] [address] [id number] [address] [place] [address], [place] [address] Apr, [facility] [address] [id number] [address] [place] [address], [place] [address] Apr, [facility] [address] [id number] [address] [place] [address], [place] [address] Mar, [facility] [address] [id number] [address] [place] [address], [place] [address] Mar, [facility] [address] [id number] [address] [place] [address], [place] [address] Mar, [facility] [address] [id number] [address] [place] [address], [place] [id number] Mar, [facility] [address] [id number] [address] [place] [address], [place] [address] Feb, [facility] [address] [id number] [place] [id number] Jan, [facility] [address] [id number] [address] [place] [address], [place] [address] Jan, [facility] [address] [id number] [address] [place] [address], [place] [address] Dec, [facility] [address] [id number] [address] [place] [address], [place] [id number] Dec, [facility] [address] [id number] [address] [place] [address], [place] [address] Dec, [facility] [address] [id number] [place] [id number] Dec, [facility] [address] [id number] [address] [place] [address], [place] [id number] Nov, [facility] [address] [id number] [address] [place] [address], [place] [id number] Nov, [facility] [address] [id number] [address] [place] [address], [place] [id number] Nov, [facility] [address] [id number] [address] [place] [address], [place] [id number] Nov, [facility] [address] [id number] [address] [place] [address], [place] [id number] Nov, [facility] [address] [id number] [address] [place] [address], [place] [id number] October, [facility] [address] [facility] [id number] [place] [address] October, [facility] [address] [facility] [id number] [address] [place] [id number] Aug, [facility] [address] [facility] [id number] [address] [place] [id number] 13 Nov, 2011 IMMUNIZATIONS No Known Immunizations SOCIAL HISTORY Never Assessed REASON FOR VISIT requests a return call PLAN OF CARE VITAL SIGNS [...]
--- OUTSIDE RECORDS SUMMARY | 2019-11-29 09:45 | XMS REPORT ---
Author Author Curt REBOLLAR [facility] eClinicalWorks Address Unknown Phone Unavailable Care Team Providers Care Placer Miner Name Role Phone QUINTIN REBOLLAR CP Unavailable Allergies, Adverse Reactions, Alerts Substance Reaction Event Type Wheat throat swells Non Drug Allergy Egg White throat swells Non Drug Allergy Cows Milk throat swells Non Drug Allergy Peanuts throat swells Non Drug Allergy Tenerius Kieler throat swells Non Drug Allergy Richardson throat swells Non Drug Allergy Ragweed throat [...] II diabetes mellitus E11.9 Ac tive Assessment Recurrent major depressive disorder, in partial remiss ion F33.41 Active Assessment Major depression F32.9 Active Assessment Insomnia G47.00 Active Medications No Known Medications Procedures Procedure Coding System Code Date Psychotherapy, patient &/family, 30 minutes, established patient CPT-4 [id number] Apr 26, 2016 Results No Known Results Summary Purpose eClinicalWorks Submission
--- OUTSIDE RECORDS SUMMARY | 2019-11-29 09:45 | XMS REPORT ---
Author Author Curt GARCIAS [facility] eClinicalWorks Address Unknown Phone Unavailable Care Team Providers Care Inhalation Therapy Aide Name Role Phone ARLEN GARCIAS Unavailable Allergies, Adverse Reactions, Alerts Substance Reaction Event Type Wheat throat swells Non Drug Allergy Egg White throat swells Non Drug Allergy Cows Milk throat swells Non Drug Allergy Peanuts throat swells Non Drug Allergy Tenerius Rhome throat swells Non Drug Allergy Hubbard throat swells Non Drug Allergy Ragweed throat [...] Active Problem Insomnia, unspecified 780.52 Active Assessment Morbid obesity 278.01 Active Assessment Anxiety state, unspecified 300.00 A ctive Assessment Major depressive disorder, r ecurrent episode, in partial or unspecified remission 296.35 Active Medications Medication Code System Code Instructions Start Date End Date Status Dosage Meloxicam [facility] 16735202694 15 MG 1 take 1 t ablet by mouth 1 time per day MetFORMIN HCl ER (MOD) [facility] [address]-93 1000 MG Orally tw ice a day January 08, 2015 1 tablet with evenin g meal Saxenda [facility] [address]-00 18 MG/3ML Subcutaneous Once a day 0.2 ml Tricor [facility] 52361881355 145 MG 1 tablet by Oral route 1 time per day [facility] Brintellix [facility] [address]-50 20 MG Orally Once a day for one [place] November 18, 2014 1 tablet Singulair [facility] 73110350667 10 MG 1 Tablet b y Oral route 1 time per day take 1 tablet by mouth 1 time per day Lisinopril [facility] [address]-79 40 MG Orally Once a day August 21, 2014 1 Tablet by Oral route 1 time per day Flonase [facility] [address]-35 50 mcg/actuation November 29, 2013 inhale 1 spray (50 mcg) in each nostril by intranasal route 2 times per day Victoza [facility] [address]-60 18 MG/3ML Subcutaneous Once a day 0.2 ml Flovent HFA [facility] [address]-15 110 mcg/actuation October 23, 2012 1-3 Puffs 1 time per day Liraglutide [facility] 19970786371 18 MG/3ML Subcutaneous Once a day 0.2 ml Omeprazole [facility] [address]-83 20 MG Orally Once a day 1 capsule Atenolol [facility] [address]-54 100 MG Orally Once a day August 21, 2014 1 tablet by Oral route 1 time per day Furosemide [facility] 78346660557 20 MG TAKE 1 TA BLET BY MOUTH ONCE DAILY NEEDED ONLY WITH EXCESSIVE SWELLING Procedures Procedure Coding System Code Date Office Visit, Est Pt., Level 3 CPT-4 27045 S t 2014 Vital Signs Date/Time: Mar 05, 2015 Temperature 98.3 F Weight 444.3 lbs Height 72 in BMI 60.25 Index Blood Pressure Diastolic 105 mmHg Blood Pressure Systolic 150 mmHg Cardiac Monitoring Heart Rate 92 bpm Results No Known Results Summary Purpose eClinicalWorks Submission
--- OUTSIDE RECORDS SUMMARY | 2019-11-29 09:45 | XMS REPORT ---
Author Author Curt TIRADO Organization [facility] Address Unknown Phone Unavailable Care Team Providers Care Call Out Clerk Name Role Phone RON TIRADO Unavailable Unavailable PROBLEMS Type Condition ICD9-CM Code [id number] Code Onset Dates Condition S tatus SNOMED Code Problem Major depression F32.9 Active 370 608883 Problem Morbid obesity E66.01 Active 80363 6002 Problem Benign essential hypertension I10 Active 5828735 Problem Insomnia G47.00 Active 273365761 Problem Hyperlipemia E78.5 Active 1714101 4 Problem Acute bacterial conjunctivitis of left eye H10.32 Active 267734381 Problem Recurrent major depressive disorder, in partial remission F33.41 Active 48377565 Problem Edema R60.9 Active 290697651 Problem Type II diabetes mellitus E11.9 Acti ve 02240214 Problem Callus of foot L84 Active 29770 1005 Problem Renal insufficiency N28.9 Active 147845254 ALLERGIES Unknown Allergies SOCIAL HISTORY No smoking Hx information available PLAN OF CARE VITAL SIGNS MEDICATIONS Unknown Medications RESULTS No Results PROCEDURES No Known procedures IMMUNIZATIONS No Known Immunizations
--- OUTSIDE RECORDS SUMMARY | 2019-11-29 09:45 | XMS REPORT ---
Author Author Curt REBOLLAR Organization [facility] Address [address] [place] [address] Care Team Providers Care Hadoop Application Developer Name Role Phone QUINTIN REBOLLAR Unavailable PROBLEMS Type Condition ICD9-CM Code [id number] Code Onset Dates Condition S tatus SNOMED Code Problem Morbid obesity E66.01 Active 47836 6002 Problem Benign essential hypertension I10 Active 4084583 Problem Type II diabetes mellitus E11.9 Acti ve 96251518 Problem Hyperlipemia E78.5 Active 4979249 4 Problem Major depression F32.9 Active 370 437614 Problem Insomnia G47.00 Active 642912986 Problem Metabolic syndrome E88.81 Active 2 71477753 Problem Acute bacterial conjunctivitis of left eye H10.32 Active 350966388 Problem Edema R60.9 Active 481889086 Problem Renal insufficiency N28.9 Active 898736056 Problem Recurrent major depressive disorder, in partial remission F33.41 Active 84028749 Problem Callus of foot L84 Active 41356 1005 ALLERGIES No Information SOCIAL HISTORY Never Assessed PLAN OF CARE Activity Details Follow Up 4 Weeks Reason:Depression VITAL SIGNS MEDICATIONS Unknown Medications RESULTS No Results PROCEDURES Procedure Date Ordered Result Body Site Psychotherapy, patient &/family, 30 minutes, established pat ient September 20, 2016 IMMUNIZATIONS No Known Immunizations MEDICAL [...]
--- OUTSIDE RECORDS SUMMARY | 2019-11-29 09:45 | XMS REPORT ---
Author Author Curt TRIMBLE [facility] eClinicalWorks Address Unknown Phone Unavailable Care Team Providers Care Infection Control Practitioner Name Role Phone [facility] Unavailable Allergies No Known Allergies Problems Problem Type Condition Code Onset Dates Condition Statu s Problem Hyperlipemia E78.5 Active Assessment Depression, major, recurrent, moderate F33.1 Active Problem Renal insufficiency N28.9 Active Problem Type II diabetes mellitus E11.9 Ac tive Problem Edema R60.9 Active Problem Insomnia G47.00 Active Problem Major depression F32.9 Active Problem Morbid obesity E66.01 Active Problem Benign essential hypertension I10 Active Medications No Known Medications Procedures Procedure Coding System Code Date PATIENT AND FAMILY SUPPORT CPT-4 S0280 Jun Results No Known Results Summary Purpose eClinicalWorks Submission
--- OUTSIDE RECORDS SUMMARY | 2019-11-29 09:45 | XMS REPORT ---
Author Curt Hess [facility] eClinicalWorks Address Unknown Phone Unavailable Care Team Providers Care Entry Level Finance Name Role Phone CHRIS DIAZ CP Unavailable [...] E11.9 Ac tive Medications No Known Medications Vital Signs Date/Time: Feb 11, 2016 Blood Pressure Systolic 102 mmHg Weight 430.8 lbs Height 71.5 in BMI 59.24 Index Blood Pressure Diastolic 60 mmHg Results No Known Results Summary Purpose eClinicalWorks Submission
--- OUTSIDE RECORDS SUMMARY | 2019-11-29 09:45 | XMS REPORT ---
Author Curt Hess [facility] eClinicalWorks Address Unknown Phone Unavailable Care Team Providers Care Social Worker Psychiatric Name Role Phone CHRIS DIAZ CP Unavailable Allergies No Known Allergies Problems Problem Type Condition Code Onset Dates Condition Statu s Problem Major depression F32.9 Active Problem Hyperlipemia E78.5 Active Problem Insomnia G47.00 Active Medications No Known Medications Results No Known Results Summary Purpose eClinicalWorks Submission
--- OUTSIDE RECORDS SUMMARY | 2019-11-29 09:46 | XMS REPORT ---
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 Hand Name Role Phone TerriARCENIOQUINTIN Caceres Unavailable PROBLEMS Type Condition ICD9-CM Code [id number] Code Onset Dates Condition S tatus SNOMED Code Problem Recurrent major depressive disorder, in partial remission F33.41 Active 85970900 Problem Metabolic syndrome E88.81 Active 2 05764433 Problem Acute bacterial conjunctivitis of left eye H10.32 Active 252677424 Problem DANIELA (generalized anxiety disorder) F41.1 Active 40858037 Problem BMI 45.0-49.9, adult Z68.42 Active 077408648 Problem Anxiety F41.9 Active 62999099 Problem Severe episode of recurrent major depressive disorder, without psychotic features F33.2 Active 63963002 Problem Mixed obsessional thoughts and acts F42.2 Active 63199913 Problem Vitamin D deficiency E55.9 Active 41983358 Problem Insomnia G47.00 Active 384003254 Problem Major depression F32.9 Active 370 160862 Problem Hyperlipemia E78.5 Active 6801989 4 Problem Benign essential hypertension I10 Active 5645191 Problem Renal insufficiency N28.9 Active 718412045 Problem Morbid obesity E66.01 Active 63091 6002 Problem Edema R60.9 Active 689033520 Problem Type II diabetes mellitus E11.9 Acti ve 05927813 Problem Callus of foot L84 Active 82565 1005 ALLERGIES No Information ENCOUNTERS Encounter Location Date Diagnosis [facility] [address] [facility] [id number] [address] [place] [address] Nov, [facility] [address] [id number][place] [id number] October, [facility] [address] [id number], [place] [id number] October, [facility] [address] [facility] [id number] [address] [place] [address] October, BMI 45.0-49.9, adult Z68.42 ; Mixed obsessional thoughts and acts F42.2 ; Recurrent major depressive disorder, in partial remission F33.41 and DANIELA (generalized anxiety disorder) F41.[address] [id number], [place] [id number] October, Benign essential hypertension I10 ; Morb id obesity E66.01 and BMI 45.0-49.9, adult Z68.[address] [id number], [place] [id number] Sep, [address] [id number] [place] [address] [id number] Sep, [place] [id number] [place] [address] [id number] Sep, [address] [id number] [place] [address] [id number] Sep, Hospital discharge follow-up Z09 ; Aller gic rhinitis, unspecified seasonality, unspecified trigger J30.9 and Shortness of breath R06.[address] [id number] [place] [address] [id number] Sep, Recurrent major depressive disorder, in partial remission F33.[address] [id number] [place] [address] [id number] Aug, Irritable mood R45.4 [facility] [address] [facility] [id number] [address] [place] [address] 09 Aug, [id number] [place] [address] [id number] Jul, Benign essential hypertension I10 ; Robert a R60.9 and Impacted cerumen of left ear H61.22 [facility] [address] [facility] [id number] [address] [place] [phone] 14 Jul, 2017 Major depression F32.9 ; Rec urrent major depressive disorder, in partial remission F33.41 and Anxiety F41.9 [place] [address] [facility] [id number] [address] [place] [address] Jun, Major depression F32.9 ; Rec urrent major depressive disorder, in partial remission F33.41 and Anxiety F41.[address] [facility] [address] [id number], [place] [id number] Jun, Major depression F32.9 ; Morbid obesity E66.01 ; Irritable mood R45.4 ; Hand weakness R29.898 and Vitamin D deficiency E55.[address] [facility] [id number] [place] [id number] Jun, [facility] [address] [id number], [place] [id number] May, Major depression F32.9 [place] [address] [facility] [id number] [address] [place] [address] May, Major depression F32.[address] [facility] [address] [id number], [place] [id number] May, BMI 50.0-59.9, adult Z68.43 ; Major depr ession F32.9 ; Anxiety F41.9 ; Hypertrophic toenail L60.2 and Pain of left great toe M79.[address] [facility] [address] [id number], [place] [id number] May, Recurrent major depressive disorder, in partial remission F33.41 [place] [address] [facility] [id number] [address] [place] [address] Apr, [facility] [address] [id number], [place] [id number] Apr, [place] [address] [facility] [id number] [address] [place] [address] Apr, Major depression F32.[address] [facility] [address] [id number], [place] [id number] Apr, Severe episode of recurrent major depres sive disorder, without psychotic features F33.2 ; Anxiety F41.9 [address] G47[address] [facility] [address] [id number], [place] [id number] Apr, [facility] [address] [facility] [id number] [address] [place] [address] Apr, [facility] [address] [id number], [place] [id number] Apr, [facility] [address] [id number], [place] [id number] Mar, [facility] [address] [id number], [place] [id number] Mar, Allergic conjunctivitis of both eyes H10 .13 [facility] [address] [place] [id number] [address] [place] [address] Mar, Major depression F32.[address] [facility] [address] [id number], [place] [id number] Mar, Metabolic syndrome E88.81 ; History of g astric bypass Z98.890 ; Benign essential hypertension I10 and Allergic conjunctivitis of both eyes H10.13 [facility] [address] [facility] [id number] [address] [place] [address] Mar, Major depression F32.[address] [facility] [address] [id number], [place] [id number] Feb, [facility] [address] [facility] [id number] [address] [place] [address] Feb, Major depression F32.[address] [facility] [address] [id number], [place] [id number] Feb, Subacute maxillary sinusitis J01.00 and Bronchitis J40 [facility] [address] [facility] [id number] [address] [place] [address] Feb, Major depressive disorder, r ecurrent, moderate F33.[address] [facility] [place] [address] [facility] [address] [id number], [place] [id number] Jan, [facility] [address] [id number], [place] [id number] Jan, Acute non-recurrent maxillary sinusitis J01.00 and Skin tag L91.8 [facility] [place] [address] [place] [address] [place] [id number], [place] [id number] Jan, Cough R05 and Sinus congestion R09.[address] [facility] [place] [address] [place] [address] [id number], [place] [id number] Jan, [facility] [address]LE[address] [id number] [place] [address] [id number] Jan, Benign essential hypertension I10 ; Hist ory of gastric bypass Z98.890 and Nausea and vomiting in adult R11.2 [facility] [address] [place], [place] [address] Jan, Major depressive disorder, r ecurrent, moderate F33.1 [facility] [address] [facility] [id number] [address] [place] [address] Dec, Insomnia G47.00 ; Recurrent major depressive disorder, in partial remission F33.41 and Morbid obesity E66.01 [facility] [address] [id number], [place] [id number] Dec, [facility] [address] [id number], [place] [id number] Dec, Chronic bacterial conjunctivitis of left eye H10.[address] [facility] [address] [id number], [place] [id number] Nov, [facility] [address] [id number], [place] [id number] Nov, Dental examination Z01.[address] [facility] [place] [address] [place] [address] [id number], [place] [id number] Nov, Benign essential hypertension I10 ; Hist ory of gastric bypass Z98.890 and Nausea and vomiting in adult R11.2 [place] [address] [place] [id number] [address] [place] [address] Nov, Major depressive disorder, r ecurrent, moderate F33.1 ; Generalized anxiety disorder F41.1 and Insomnia due to other mental disorder F51.05 [place] [address] [place] [id number] [address] [place] [address] Nov, Recurrent major depressive d isorder, in partial remission F33.41 ; Insomnia G47.00 and Morbid obesity E66.01 [facility] [address] [id number] [place] [address] [id number] October, Abscess of left arm L02.414 [place] [id number] [address] [place] [address] October, Morbid obesity E66.01 ; Lida r depression F32.9 and Recurrent major depressive disorder, in partial remission F33.[address] [place] [id number] [place] [address] [id number] Sep, Benign essential hypertension I10 ; Morb id obesity E66.01 ; S/P gastric bypass Z98.84 ; Abscess L02.91 and Chronic bacterial conjunctivitis of left eye H10.[address] [id number] [place] [address] [id number] Sep, Dental examination Z01.20 [place] [id number] [address] [place] [address] Sep, Morbid obesity E66.01 ; Lida r depression F32.9 and Recurrent major depressive disorder, in partial remission F33.41 [place] [id number] [address] [place] [address] Jul, [place] [address] [place] [id number] [address] [place] [address] Jul, Major depressive disorder, r ecurrent, moderate F33.1 [place] [id number] [address] [place] [id number] Jul, Major depressive disorder, r ecurrent, moderate F33.1 and Generalized anxiety disorder F41.[address] [facility] [address] [id number], [place] [id number] Jul, Cough R05 [place] [address] [facility] [id number] [address] [place] [address] Jul, Morbid obesity E66.01 ; Lida r depression F32.9 and Recurrent major depressive disorder, in partial remission F33.41 [facility] [id number] [place] [address] [id number] Jul, [facility] [id number] [place] [address] [id number] Jul, [facility] [place] [address] [id number] [place] [address] [id number] Jul, Gastroenteritis K52.9 and Cough R[address] [facility] [id number] [place] [address] [id number] Jun, Acute bacterial conjunctivitis of left e ye H10.32 [place] [address] [place] [address] Jun, [place] [address] [place] [id number] [address] [place] [address] Jun, Recurrent major depressive d isorder, in partial remission F33.41 [place] [address] [place] [id number] [address] [place] [address] May, Major depression F32.9 and M orbid obesity E66.01 [place] [address] [place] [id number] [address] [place] [address] May, [facility] [id number] [place] [address] [id number] May, Thrush B37.0 [place] [address] [place] [id number] [address] [place] [address] 15 Apr, 2016 Major depressive disorder, r ecurrent, moderate F33.1 [facility] [address] [facility] [id number] [address] [place] [address] Apr, Insomnia G47.00 ; Major depr ession F32.9 and Recurrent major depressive disorder, in partial remission F33.41 [facility] [address] [facility] [id number] [address] [place] [address] Apr, [facility] [address] [facility] [id number] [address] [place] [address] Apr, Major depression F32.9 and R ecurrent major depressive disorder, in partial remission F33.[address] [facility] [address] [id number], [place] [id number] Mar, Benign essential hypertension I10 ; Morb id obesity E66.01 ; Impacted cerumen of both ears H61.23 ; Laceration of finger of right hand, initial encounter S61.219A and Encounter for immunization Z23 [facility] [address] [facility] [id number] [address] [place] [phone] 17 Mar, 2016 [facility] [address] [facility] [id number] [address] [place] [id number] Mar, [facility] [address] [facility] [id number] [address] [place] [address] Mar, [facility] [address] [id number], [place] [id number] Feb, Nausea R11.0 ; Blood in the stool K92.1 and Benign essential hypertension I10 [facility] [address] [facility] [id number] [address] [place] [address] Feb, Major depression F32.9 and R ecurrent major depressive disorder, in partial remission F33.[address] [facility] [address] [id number], [place] [id number] Feb, [facility] [address] [id number], [place] [id number] Feb, Recurrent major depressive disorder, in partial remission F33.41 [facility] [address] [id number], [place] [id number] Jan, [facility] [address] [id number], [place] [id number] Jan, Benign essential hypertension I10 ; Robert a R60.9 and Hyperlipidemia, unspecified hyperlipidemia type E78.5 [facility] [address] [id number], [place] [id number] Jan, Recurrent major depressive disorder, in partial remission F33.[address] [facility] [address] [id number] [place] [id number] Jan, [facility] [address] [id number], [place] [id number] Jan, [facility] [address] [id number], [place] [id number] Jan, [facility] [address] [facility] [id number] [address] [place] [address] Jan, [facility] [address] [facility] [id number] [address] [place] [address] Dec, [facility] [address] [facility] [id number] [address] [place] [address] Nov, [facility] [address] [facility] [id number] [address] [place] [address] Nov, Major depression F32.9 [facility] [address] [facility] [id number] [address] [place] [address] Nov, [facility] [address] [id number] [address] [place] [address] Nov, [facility] [address] [facility] [id number] [address] [place] [address] Nov, Major depressive disorder, r ecurrent episode, mild F33.0 and Anxiety F41.[address] [facility] [address] [id number], [place] [id number] Nov, [facility] [place] [id number] [facility] [address] [id number], [place] [id number] October, Left elbow pain M25.522 and Other season al allergic rhinitis J30.2 [facility] [address] [id number], [place] [id number] October, [place] [address] [facility] [id number] [address] [place] [address] October, Major depressive disorder, r ecurrent, moderate F33.1 [place] [address] [facility] [id number] [address] [place] [address] October, Major depression F32.9 [place] [address] [facility] [id number] [address] [place] [address] Sep, [place] or callus L84 and Onych omycosis B35.1 [place] [address] [facility] [id number] [address] [place] [address] Sep, Major depressive disorder, r ecurrent, moderate F33.1 [place] [address] [facility] [id number] [address] [place] [address] Sep, Major depression F32.9 [place] [address] [facility] [id number] [address] [place] [address] Sep, Moderate episode of recurren t major depressive disorder F33.1 [address] [id number], [place] [id number] Sep, Muscle strain T14.8 [facility] [address] [facility] [id number] [address] [place] [address] Aug, Major depression F32.9 [place] [address] [facility] [id number] [address] [place] [address] Aug, Major depression F32.9 [facility] [address] [facility] [id number] [address] [place] [address] Jul, Morbid obesity E66.01 and Ma cora depression F32.9 [facility] [address] [facility] [id number] [address] [place] [address] Jul, Depression, major, recurrent , moderate F33.[address] [id number], [place] [id number] Jul, [facility] [address] [address] Jul, [facility] [address] [id number] 16 Jul, 2015 Major depression F32.9 and M orbid obesity E66.[address] [id number], [place] [id number] 11 Jul, 2015 Type II diabetes mellitus E11.9 ; Callus of foot L84 ; Benign essential hypertension I10 and Renal insufficiency N28.9 [place] [address] [facility] [id number] [address] [place] [phone] 09 Jul, 2015 Depression, major, recurrent , moderate F33.1 [place] [address] [place] [id number] [address] [place] [address] 05 Jul, 2015 Major depression F32.9 [place] [address] [place] [id number] [address] [place] [address] Jul, [place] [address] [place] [id number] [address] [place] [address] Jun, Major depression F32.9 [place] [address] [place] [id number] [address] [place] [address] Jun, Major depressive disorder, r ecurrent, moderate F33.1 [facility] [address] [place] [id number] [address] [place] [address] Jun, [place] [address] [address] Jun, Major depressive disorder, r ecurrent, moderate F33.1 and Major depression F32.[address] [place] [id number] [place] [address] [id number] Jun, Type II diabetes mellitus E11.9 [place] [address] [facility] [id number] [address] [place] [address] Jun, Depression, major, recurrent , moderate F33.1 [place] [address] [facility] [id number] [address] [place] [address] May, Major depressive disorder, r ecurrent, moderate F33.1 [place] [address] [place] [id number] [address] [place] [address] May, [address] [id number] [place] [address] [id number] May, Edema R60.9 [place] [id number] [address] [place] [address] May, Insomnia G47.00 and Major de pression F32.[address] [id number] [place] [address] [id number] 15 May, 2015 Morbid obesity E66.01 ; Edema R60.9 ; Sh ortness of breath R06.02 ; Benign essential hypertension I10 and Renal insufficiency N28.[address] [id number] [place] [address] [id number] May, Hyperlipemia 272.4 and Renal insufficien cy N28.9 [place] [address] [facility] [id number] [address] [place] [address] Apr, Major depression F32.9 [place] [address] [facility] [id number] [address] [place] [address] Apr, [place] [address] [facility] [id number] [address] [place] [address] Apr, Major depressive disorder, r ecurrent, moderate F33.[address] [id number], [place] [id number] Apr, Type II diabetes mellitus E11.9 ; Benign essential hypertension I10 ; Edema R60.9 and Renal insufficiency N28.9 [place] [address] [place] [id number] [address] [place] [address] Mar, Major depressive disorder, r ecurrent, moderate F33.1 [place] [address] [place] [id number] [address] [place] [address] Mar, [place] [address] [place] [id number] [address] [place] [address] Mar, Major depression F32.[address] [id number], [place] [id number] Mar, Morbid obesity E66.01 ; Benign essential hypertension I10 and Type II diabetes mellitus E11.9 [place] [address] [place] [address] Feb, Major depressive disorder, r ecurrent, moderate F33.1 [place] [address] [place] [id number] [address] [place] [id number] Feb, Major depressive disorder, r ecurrent episode, in partial or unspecified remission 296.35 ; Anxiety state, unspecified 300.00 and Morbid obesity 278.01 [place] [address] [address] [facility] [id number] [address] [place] [id number] Feb, [address] [id number] [id number] Feb, Vomiting 787.03 and Viral syndrome 079.9 9 [place] [id number] [address] [place] [id number] Feb, Major depression, recurrent 296.30 ; Generalized anxiety disorder 300.02 and No condition on [place] V71.[address] [id number] [id number] Feb, Skin tag 701.9 [place] [address] [address] [facility] [id number] [address] [place] [id number] Feb, [facility] [address] [facility] [id number] [address] [place] [id number] Jan, Depression, major, recurrent , moderate 296.[address] [id number][place] [id number] Jan, Nausea and vomiting 787.01 ; Rib pain on right side 786.50 and Fall on or from sidewalk curb E880.1 [facility] [address] [facility] [id number] [address] [place] [id number] Jan, [facility] [address] [place] [id number] [address] [place] [id number] Jan, Major depressive disorder, r ecurrent episode, in partial or unspecified remission 296.35 and Anxiety state, unspecified 300.[address] [id number][place] [id number] Jan, [facility] [address] [facility] [id number] [address] [place] [id number] Jan, Depression, major, recurrent , moderate 296.32 [facility] [address] [place] [id number] [address] [place] [address] [address] Jan, Major depression, recurrent 296.30 ; No condition on [place] II V71.09 and No condition on axis III V71.[address] [id number] [id number] Jan, Drug-induced nausea and vomiting 787.01 [facility] [address] [facility] [id number] [address] [place] [address] Jan, Depression, major, recurrent , moderate 296.32 [facility] [address] [facility] [id number] [address] [place] [address] Dec, Depression, major, recurrent , moderate 296.[address] [id number] [place] [address] [id number] Dec, Morbid obesity 278.01 ; Metabolic syndro me 277.7 ; Hyperlipemia 272.4 ; Benign essential hypertension 401.1 ; Dietary counseling V65.3 ; Exercise counseling V65.41 and Inflamed skin tag 701.9 [place] [address] [address] Dec, Depression, major, recurrent , moderate 296.32 [place] [address] [address] Dec, [place] [address] [address] Dec, Major depression, recurrent 296.30 ; Anxiety, generalized 300.02 and No condition on [place] II V71.09 [place] [address] [address] Dec, Depression, major, recurrent , moderate 296.32 [place] [address] [address] Dec, Major depressive disorder, r ecurrent episode, moderate 296.32 [place] [address] [address] Dec, Depression, major, recurrent , moderate 296.32 [place] [address] [address] Dec, Depression, major, recurrent , moderate 296.32 [place] [address] [address] Dec, Depression, major, recurrent , moderate 296.32 [place] [address] [address] Dec, Depression, major, recurrent , moderate 296.32 [place] [address] [address] Nov, Depression, major, recurrent , moderate 296.32 [place] [address] [place] [address] 16 Nov, 2014 Major depression 296.20 ; So cial phobia 300.23 and No condition on [place] II V71.09 [facility] [address] [facility] [id number] [address] [place] [address] 16 Nov, 2014 Depression, major, recurrent , moderate 296.32 [facility] [address] [place] [id number] [address] [place] [address] Nov, Major depressive disorder, r ecurrent episode, moderate 296.32 and Generalized anxiety disorder 300.02 [facility] [address] [place] [id number] [address] [place] [address] 09 Nov, 2014 Depression, major, recurrent , moderate 296.32 [facility] [address] [place] [id number] [address] [place] [address] Nov, Depression, major, recurrent , moderate 296.32 [facility] [address] [place] [id number] [place] [address] October, Generalized anxiety disorder 300.02 ; No condition on [place] II V71.09 and Major depressive disorder, recurrent 296.30 [facility] [address] [place] [id number] [address] [place] [address] 14 Sep, 2014 [facility] [address] [place] [id number] [address] [place] [address] Sep, [facility] [address] [place] [id number] [address] [place] [address] Aug, [facility] [address] [place] [id number] [address] [place] [address] Aug, [facility] [address] [place] [id number] [address] [place] [address] Aug, [facility] [address] [place] [id number] [address] [place] [address] Aug, [facility] [address] [place] [id number] [address] [place] [address] Aug, [facility] [address] [id number] [facility] [place] [address] 20 Aug, 2014 [facility] [address] [id number] [address] [place] [address], [place] [address] 20 Aug, 2014 [facility] [address] [id number] [address] [place] [address], [place] [address] 20 Aug, 2014 [facility] [address] [id number] [address] [place] [address], [place] [address] Aug, [facility] [address] [id number] [address] [place] [address], [place] [address] 13 Aug, 2014 [facility] [address] [id number] [address] [place] [address], [place] [address] 13 Aug, 2014 [facility] [address] [id number] [address] [place] [address], [place] [address] Aug, [facility] [address] [id number] [address] [place] [address], [place] [address] Aug, [facility] [address] [id number] [address] [place] [address], [place] [address] Aug, [facility] [address] [id number] [address] [place] [address], [place] [address] Aug, [facility] [address] [id number] [address] [place] [address], [place] [address] Aug, [facility] [address] [id number] [address] [place] [address], [place] [address] Aug, [facility] [address] [id number] [address] [place] [address], [place] [address] Aug, [facility] [address] [id number] [address] [place] [address], [place] [address] Jul, [facility] [address] [id number] [address] [place] [address], [place] [address] Jul, [facility] [address] [id number] [address] [place] [address], [place] [address] Jul, [facility] [address] [id number] [address] [place] [address], [place] [address] Jul, [facility] [address] [id number] [address] [place] [address], [place] [address] Jul, [facility] [address] [id number] [address] [place] [address], [place] [address] Jul, [facility] [address] [id number] [address] [place] [address], [place] [address] Jun, [facility] [address] [id number] [address] [place] [address], [place] [address] Jun, [facility] [address] [id number] [address] [place] [address], [place] [address] Jun, [facility] [address] [id number] [address] [place] [address], [place] [address] Jun, [facility] [address] [id number] [address] [place] [address], [place] [address] Jun, [facility] [address] [id number] [address] [place] [address], [place] [address] Jun, [facility] [address] [id number] [address] [place] [address], [place] [address] Jun, [facility] [address] [id number] [address] [place] [address], [place] [address] Jun, [facility] [address] [id number] [address] [place] [address], [place] [address] Jun, [facility] [address] [id number] [address] [place] [address], [place] [address] Jun, [facility] [address] [id number] [address] [place] [address], [place] [address] Jun, [facility] [address] [id number] [address] [place] [address], [place] [address] Jun, [facility] [address] [id number] [id number] Jun, [facility] [address] [id number] [address] [place] [address], [place] [address] Jun, [facility] [address] [id number] [address] [place] [address], [place] [address] Jun, [facility] [address] [id number] [address] [place] [address], [place] [address] Jun, [facility] [address] [id number] [address] [place] [address], [place] [address] May, [facility] [address] [id number] [address] [place] [address], [place] [address] May, [facility] [address] [id number] [address] [place] [address], [place] [address] May, [facility] [address] [id number] [address] [place] [address], [place] [address] May, [facility] [address] [id number] [address] [place] [address], [place] [address] Apr, [facility] [address] [id number] [address] [place] [address], [place] [address] Apr, [facility] [address] [id number] [address] [place] [address], [place] [address] Apr, [facility] [address] [id number] [address] [place] [address], [place] [address] Apr, [facility] [address] [id number] [address] [place] [address], [place] [address] Apr, [facility] [address] [id number] [address] [place] [address], [place] [address] Apr, [facility] [address] [id number] [address] [place] [address], [place] [address] Apr, [facility] [address] [id number] [address] [place] [address], [place] [address] Apr, [facility] [address] [id number] [address] [place] [address], [place] [address] Apr, [facility] [address] [id number] [address] [place] [address], [place] [address] Apr, [facility] [address] [id number] [address] [place] [address], [place] [address] Apr, [facility] [address] [id number] [address] [place] [address], [place] [address] Apr, [facility] [address] [id number] [address] [place] [address], [place] [address] Apr, [facility] [address] [id number] [address] [place] [address], [place] [address] Apr, [facility] [address] [id number] [address] [place] [address], [place] [address] Apr, [facility] [address] [id number] [address] [place] [address], [place] [address] Apr, [facility] [address] [id number] [address] [place] [address], [place] [address] Apr, [facility] [address] [id number] [address] [place] [address] Apr, [facility] [address] [id number] [address] [place] [address], [place] [address] Apr, [facility] [address] [id number] [address] [place] [address] Apr, [facility] [address] [id number] [address] [place] [address], [place] [address] Mar, [facility] [address] [id number] [address] [place] [address], [place] [address] Mar, [facility] [address] [id number] [address] [place] [address], [place] [address] Mar, [facility] [address] [id number] [address] [place] [address], [place] [address] Mar, [facility] [address] [id number] [address] [place] [address], [place] [address] Mar, [facility] [address] [id number] [address] [place] [address], [place] [address] Mar, [facility] [address] [id number] [address] [place] [address], [place] [address] Mar, [facility] [address] [id number] [address] [place] [address], [place] [address] Mar, [facility] [address] [id number] [address] [place] [address], [place] [address] Mar, [facility] [address] [id number] [address] [place] [address], [place] [address] Mar, [facility] [address] [id number] [address] [place] [address], [place] [address] Feb, [facility] [address] [id number] [address] [place] [address], [place] [address] Feb, [facility] [address] [id number] [address] [place] [address], [place] [address] Feb, [facility] [address] [id number] [address] [place] [address], [place] [address] Feb, [facility] [address] [id number] [address] [place] [address], [place] [address] Jan, [facility] [address] [id number] [address] [place] [address], [place] [address] Jan, [facility] [address] [id number] [address] [place] [address], [place] [address] Jan, [facility] [address] [id number] [address] [place] [address], [place] [address] Jan, [facility] [address] [id number] [address] [place] [address], [place] [address] Jan, [facility] [address] [id number] [facility] [place] [address] Jan, [facility] [address] [id number] [facility] [place] [address] Dec, [facility] [address] [id number] [facility] [place] [address] Dec, [facility] [address] [id number] [address] [place] [address], [place] [address] Nov, [facility] [address] [id number] [address] [place] [address], [place] [address] Nov, [facility] [address] [id number] [address] [place] [address], [place] [address] Nov, [facility] [address] [id number] [address] [place] [address], [place] [address] Nov, [facility] [address] [id number] [address] [place] [address], [place] [address] Nov, [facility] [address] [id number] [address] [place] [address], [place] [address] Nov, [facility] [address] [id number] [address] [place] [address], [place] [address] Sep, [facility] [address] [id number] [address] [place] [address], [place] [address] Sep, [facility] [address] [id number] [address] [place] [address], [place] [address] Sep, [facility] [address] [id number] [address] [place] [address], [place] [address] Sep, [facility] [address] [id number] [address] [place] [address], [place] [address] Aug, [facility] [address] [id number] [address] [place] [address], [place] [address] Aug, [facility] [address] [id number] [address] [place] [address], [place] [address] 14 Jul, 2013 [facility] [address] [id number] [address] [place] [address], [place] [address] 14 Jul, 2013 [facility] [address] [id number] [address] [place] [address], [place] [address] Jun, [facility] [address] [id number] [address] [place] [address], [place] [address] Jun, [facility] [address] [id number] [address] [place] [address], [place] [address] Jun, [facility] [address] [id number] [address] [place] [address], [place] [address] Jun, [facility] [address] [id number] [address] [place] [address], [place] [address] May, [facility] [address] [id number] [address] [place] [address], [place] [address] May, [facility] [address] [id number] [address] [place] [address], [place] [address] May, [facility] [address] [id number] [address] [place] [address], [place] [address] May, [facility] [address] [id number] [address] [place] [address], [place] [address] May, [facility] [address] [id number] [address] [place] [address], [place] [address] May, [facility] [address] [id number] [address] [place] [address], [place] [address] Apr, [facility] [address] [id number] [address] [place] [address], [place] [address] Apr, [facility] [address] [id number] [address] [place] [address], [place] [address] Apr, [facility] [address] [id number] [address] [place] [address], [place] [address] Apr, [facility] [address] [id number] [address] [place] [address], [place] [address] Mar, [facility] [address] [id number] [address] [place] [address], [place] [address] Mar, [facility] [address] [id number] [address] [place] [address], [place] [address] Mar, [facility] [address] [id number] [address] [place] [address], [place] [address] Mar, [facility] [address] [id number] [address] [place] [address], [place] [address] Feb, [facility] [address] [id number] [place] [id number] Jan, [facility] [address] [id number] [address] [place] [address], [place] [address] Jan, [facility] [address] [id number] [address] [place] [address], [place] [address] Dec, [facility] [address] [id number] [address] [place] [address], [place] [address] Dec, [facility] [address] [id number] [address] [place] [address], [place] [address] Dec, [facility] [address] [id number] [place] [id number] Dec, [facility] [address] [id number] [address] [place] [address], [place] [address] 17 Nov, 2012 [facility] [address] [id number] [address] [place] [address], [place] [address] 14 Nov, 2012 [facility] [address] [id number] [address] [place] [address], [place] [address] Nov, [facility] [address] [id number] [address] [place] [address], [place] [address] Nov, [facility] [address] [id number] [address] [place] [address], [place] [address] Nov, [facility] [address] [facility] [id number] [address] [place] [address] October, [facility] [address] [facility] [id number] [address] [place] [address] October, [facility] [address] [facility] [id number] [address] [place] [address] Aug, [facility] [address] [facility] [id number] [address] [place] [address] Nov, IMMUNIZATIONS No Known Immunizations SOCIAL HISTORY Never Assessed REASON FOR VISIT Requesting return call PLAN OF CARE VITAL SIGNS [...] 03/2016 Hospitalization History gastric sleeve Hospitalization History [facility] Trouble with left shoulder blade 08/2017
--- OUTSIDE RECORDS SUMMARY | 2019-11-29 09:46 | XMS REPORT ---
Author Author Curt DIAZ [facility] Address [address] [place] [address] Care Team Providers Care Pet Caretaker Name Role Phone JOE CHRIS Unavailable PROBLEMS Type Condition ICD9-CM Code EPM96-HE Code Onset Dates Condition S tatus SNOMED Code Problem Recurrent major depressive disorder, in partial remission F33.41 Active 66828320 Problem Metabolic syndrome E88.81 Active 2 41312025 Problem Acute bacterial conjunctivitis of left eye H10.32 Active 442983615 Problem DANIELA (generalized anxiety disorder) F41.1 Active 16110399 Problem BMI 45.0-49.9, adult Z68.42 Active 274357642 Problem Anxiety F41.9 Active 34981625 Problem Severe episode of recurrent major depressive disorder, without psychotic features F33.2 Active 20412388 Problem Mixed obsessional thoughts and acts F42.2 Active 42500042 Problem Vitamin D deficiency E55.9 Active 69161989 Problem Insomnia G47.00 Active 622798216 Problem Major depression F32.9 Active 370 298569 Problem Hyperlipemia E78.5 Active 6934477 4 Problem Benign essential hypertension I10 Active 8757550 Problem Renal insufficiency N28.9 Active 405779458 Problem Morbid obesity E66.01 Active 55478 6002 Problem Edema R60.9 Active 176511225 Problem Type II diabetes mellitus E11.9 Acti ve 06044113 Problem Callus of foot L84 Active 51907 1005 ALLERGIES No Information ENCOUNTERS Encounter Location Date Diagnosis [facility] [address] [facility] [id number] [address] [address] Nov, [facility] [address] [facility] [address] [id number], [place] [id number] October, [facility] [address] [facility] [id number], [place] [id number] October, [facility] [address] [facility] [id number] [address] [place] [phone] October, BMI 45.0-49.9, adult Z68.42 ; Mixed obsessional thoughts and acts F42.2 ; Recurrent major depressive disorder, in partial remission F33.41 and DANIELA (generalized anxiety disorder) F41.[address] [id number], [place] [id number] October, Benign essential hypertension I10 ; Morb id obesity E66.01 and BMI 45.0-49.9, adult Z68.[address] [id number], [place] [id number] Sep, [address] [id number] [place] [address] [id number] Sep, [id number] [place] [id number] Sep, [address] [id number] [place] [id number] Sep, Hospital discharge follow-up Z09 ; Aller gic rhinitis, unspecified seasonality, unspecified trigger J30.9 and Shortness of breath R06.[id number] [place] [address] [id number] Sep, Recurrent major depressive disorder, in partial remission F33.[address] [id number] [place] [address] [id number] Aug, Irritable mood R45.4 [facility] [address] [facility] [id number] [address] [place] [phone] Aug, [address] [id number] [place] [address] [id number] Jul, Benign essential hypertension I10 ; Robert a R60.9 and Impacted cerumen of left ear H61.22 [facility] [address] [facility] [id number] [address] [place] [phone] 14 Jul, 2017 Major depression F32.9 ; Rec urrent major depressive disorder, in partial remission F33.41 and Anxiety F41.9 [facility] [address] [facility] [id number] [address] [place] [phone] Jun, Major depression F32.9 ; Rec urrent major depressive disorder, in partial remission F33.41 and Anxiety F41.9 [facility] [place] [address] [id number], [place] [id number] Jun, Major depression F32.9 ; Morbid obesity E66.01 ; Irritable mood R45.4 ; Hand weakness R29.898 and Vitamin D deficiency E55.9 [facility] [place] [id number], [place] [id number] Jun, [facility] [address] [address] [id number], [place] [id number] May, Major depression F32.9 [place] [address] [facility] [id number] [address] [place] [phone] May, Major depression F32.9 [facility] [place] [address] [id number], [place] [id number] May, BMI 50.0-59.9, adult Z68.43 ; Major depr ession F32.9 ; Anxiety F41.9 ; Hypertrophic toenail L60.2 and Pain of left great toe M79.675 [facility] [address] [id number], [place] [id number] May, Recurrent major depressive disorder, in partial remission F33.41 [facility] [address] [facility] [id number] [address] [place] [phone] Apr, [facility] [address] [id number], [place] [id number] Apr, [facility] [address] [facility] [id number] [address] [place] [phone] Apr, Major depression F32.9 [facility] [address] [id number], [place] [id number] Apr, Severe episode of recurrent major depres sive disorder, without psychotic features F33.2 ; Anxiety F41.9 and Insomnia G47.00 [facility] [address] [id number], [place] [id number] Apr, [facility] [address] [facility] [id number] [address] [place] [phone] Apr, [facility] [address] [id number], [place] [id number] Apr, [facility] [address] [id number], [place] [id number] Mar, [facility] [address] [id number], [place] [id number] Mar, Allergic conjunctivitis of both eyes H10 .13 [facility] [address] [facility] [id number] [address] [place] [phone] Mar, Major depression F32.9 [facility] [address] [id number], [place] [id number] Mar, Metabolic syndrome E88.81 ; History of g astric bypass Z98.890 ; Benign essential hypertension I10 and Allergic conjunctivitis of both eyes H10.13 [facility] [address] [facility] [id number] [address] [place] [phone] Mar, Major depression F32.9 [facility] [address] [id number], [place] [id number] Feb, [facility] [address] [facility] [id number] [address] [place] [phone] Feb, Major depression F32.9 [facility] [id number] [place] [address] [id number] Feb, Subacute maxillary sinusitis J01.00 and Bronchitis J40 [facility] [address] [facility] [id number] [address] [place] [phone] Feb, Major depressive disorder, r ecurrent, moderate F33.1 [facility] [place] [address] [id number], [place] [id number] Jan, [facility] [address] [id number], [place] [id number] Jan, Acute non-recurrent maxillary sinusitis J01.00 and Skin tag L91.8 [facility] [place] [address] [place] [address] [place] [id number], [place] [id number] Jan, Cough R05 and Sinus congestion R09.81 [facility] [place] [address] [place] [address] AV [id number], [place] [id number] Jan, [facility] [address] [id number], [place] [id number] Jan, Benign essential hypertension I10 ; Hist ory of gastric bypass Z98.890 and Nausea and vomiting in adult R11.2 [facility] [address] [place] [id number] Jan, Major depressive disorder, r ecurrent, moderate F33.1 [facility] [address] [facility] [id number] [address] [place] [phone] Dec, Insomnia G47.00 ; Recurrent major depressive disorder, in partial remission F33.41 and Morbid obesity E66.01 [facility] [address] [id number], [place] [id number] Dec, [facility] [address] [id number], [place] [id number] Dec, Chronic bacterial conjunctivitis of left eye H10.402 [facility] [address] [id number], [place] [id number] Nov, [facility] [address] [id number], [place] [id number] Nov, Dental examination Z01.20 [facility] [place] [address] [place] [address] [id number], [place] [id number] Nov, Benign essential hypertension I10 ; Hist ory of gastric bypass Z98.890 and Nausea and vomiting in adult R11.2 [place] [address] [facility] [id number] [address] [place] [phone] Nov, Major depressive disorder, r ecurrent, moderate F33.1 ; Generalized anxiety disorder F41.1 and Insomnia due to other mental disorder F51.[address] [id number] [address] [place] [id number] Nov, Recurrent major depressive d isorder, in partial remission F33.41 ; Insomnia G47.00 and Morbid obesity E66.01 [facility] [address] [id number] [place], [facility] [id number] October, Abscess of left arm L02.414 [place] [id number] [address] [place] [phone] October, Morbid obesity E66.01 ; Lida r depression F32.9 and Recurrent major depressive disorder, in partial remission F33.41 [facility] [id number] [place] [address] [id number] Sep, Benign essential hypertension I10 ; Morb id obesity E66.01 ; S/P gastric bypass Z98.84 ; Abscess L02.91 and Chronic bacterial conjunctivitis of left eye H10.[id number] [place] [address] [id number] Sep, Dental examination Z01.[address] [id number] [address] [place] [phone] Sep, Morbid obesity E66.01 ; Lida r depression F32.9 and Recurrent major depressive disorder, in partial remission F33.[address] [id number] [address] [place] [phone] Jul, [place] [address] [facility] [id number] [address] [place] [id number] Jul, Major depressive disorder, r ecurrent, moderate F33.1 [address] [place] [phone] Jul, Major depressive disorder, r ecurrent, moderate F33.1 and Generalized anxiety disorder F41.1 [facility] [address] [id number], [place] [id number] Jul, Cough R05 [place] [address] [place] [id number] [address] [place] [phone] Jul, Morbid obesity E66.01 ; Lida r depression F32.9 and Recurrent major depressive disorder, in partial remission F33.41 [facility] [address] [id number] [place] [address] [id number] Jul, [facility] [id number] [place] [address] [id number] Jul, [facility] [place] [id number] [place] [address] [id number] Jul, Gastroenteritis K52.9 and Cough R05 [facility] [id number] [place] [address] [id number] Jun, Acute bacterial conjunctivitis of left e ye H10.32 [place] [address] [place] [address] Jun, [place] [address] [address] Jun, Recurrent major depressive d isorder, in partial remission F33.41 [place] [address] [place] [id number] [address] [place] [phone] May, Major depression F32.9 and M orbid obesity E66.01 [place] [address] [place] [id number] [address] [place] [phone] May, [facility] [id number] [place] [address] [id number] May, Thrush B37.0 [place] [address] [phone] Apr, Major depressive disorder, r ecurrent, moderate F33.1 [facility] [address] [facility] [id number] [address] [place] [id number] Apr, Insomnia G47.00 ; Major depr ession F32.9 and Recurrent major depressive disorder, in partial remission F33.41 [facility] [address] [facility] [id number] [address] [place] [phone] Apr, [facility] [address] [facility] [id number] [address] [place] [phone] Apr, Major depression F32.9 and R ecurrent major depressive disorder, in partial remission F33.41 [facility] [address] [id number], [place] [id number] Mar, Benign essential hypertension I10 ; Morb id obesity E66.01 ; Impacted cerumen of both ears H61.23 ; Laceration of finger of right hand, initial encounter S61.219A and Encounter for immunization Z23 [facility] [address] [facility] [id number] [address] [place] [phone] 17 Mar, 2016 [facility] [address] [facility] [id number] [address] [place] [phone] Mar, [facility] [address] [facility] [id number] [address] [place] [phone] Mar, [facility] [address] [id number], [place] [id number] Feb, Nausea R11.0 ; Blood in the stool K92.1 and Benign essential hypertension I10 [facility] [address] [facility] [id number] [address] [place] [phone] Feb, Major depression F32.9 and R ecurrent major depressive disorder, in partial remission F33.41 [facility] [address] [id number], [place] [id number] Feb, Recurrent major depressive disorder, in partial remission F33.41 [facility] [address] [id number], [place] [id number] Feb, [facility] [address] [id number], [place] [id number] Jan, [facility] [address] [address] [id number], [place] [id number] Jan, Benign essential hypertension I10 ; Robert a R60.9 and Hyperlipidemia, unspecified hyperlipidemia type E78.5 [facility] [address] [id number], [place] [id number] Jan, Recurrent major depressive disorder, in partial remission F33.41 [facility] [place] [address] [id number] [place] [id number] Jan, [facility] [address] [id number], [place] [id number] Jan, [facility] [address] [id number], [place] [id number] Jan, [facility] [address] [facility] [id number] [address] [place] [phone] Jan, [facility] [address] [facility] [id number] [address] [place] [phone] Dec, [facility] [address] [facility] [id number] [address] [place] [phone] Nov, [facility] [address] [facility] [id number] [address] [place] [phone] Nov, Major depression F32.9 [facility] [address] [facility] [id number] [address] [place] [phone] Nov, [facility] [address] [facility] [id number] [address] [place] [phone] Nov, [facility] [address] [facility] [id number] [address] [place] [phone] Nov, Major depressive disorder, r ecurrent episode, mild F33.0 and Anxiety F41.9 [facility] [address] [id number], [place] [id number] Nov, [facility] [place] [id number] [facility] [address] [id number], [place] [id number] October, Left elbow pain M25.522 and Other season al allergic rhinitis J30.2 [facility] [place] [address] [place] [address] AVE [id number], [place] [id number] October, [facility] [address] [facility] [id number] [address] [place] [phone] October, Major depressive disorder, r ecurrent, moderate F33.1 [place] [address] [facility] [id number] [address] [place] [phone] October, Major depression F32.9 [place] [address] [facility] [id number] [address] [place] [phone] Sep, [place] or callus L84 and Onych omycosis B35.1 [place] [address] [facility] [id number] [address] [place] [phone] Sep, Major depressive disorder, r ecurrent, moderate F33.1 [facility] [address] [facility] [id number] [address] [place] [phone] Sep, Major depression F32.9 [place] [address] [facility] [id number] [address] [place] [phone] Sep, Moderate episode of recurren t major depressive disorder F33.1 [facility] [address] [place] [address] AVE [id number], [place] [id number] Sep, Muscle strain T14.8 [facility] [address] [facility] [id number] [address] [place] [phone] Aug, Major depression F32.9 [facility] [address] [facility] [id number] [address] [place] [phone] Aug, Major depression F32.9 [facility] [address] [facility] [id number] [address] [place] [phone] Jul, Morbid obesity E66.01 and Ma cora depression F32.9 [facility] [address] [facility] [id number] [address] [place] [phone] Jul, Depression, major, recurrent , moderate F33.[address] [id number], [place] [id number] Jul, [facility] [address] [facility] [id number] [address] [place] [phone] Jul, [place] [address] [facility] [id number] [address] [place] [phone] Jul, Major depression F32.9 and M orbid obesity E66.01 [facility] [address] [facility] [address] [id number], [place] [id number] Jul, Type II diabetes mellitus E11.9 ; Callus of foot L84 ; Benign essential hypertension I10 and Renal insufficiency N28.9 [place] [address] [facility] [id number] [address] [place] [phone] Jul, Depression, major, recurrent , moderate F33.1 [place] [address] [facility] [id number] [address] [place] [address] Jul, Major depression F32.9 [place] [address] [place] [id number] [address] [place] [phone] Jul, [place] [address] [place] [id number] [address] [place] [phone] Jun, Major depression F32.9 [place] [address] [facility] [id number] [address] [place] [id number] Jun, Major depressive disorder, r ecurrent, moderate F33.1 [place] [address] [facility] [id number] [address] [place] [phone] Jun, [place] [address] [place] [id number] [address] [place] [phone] Jun, Major depressive disorder, r ecurrent, moderate F33.1 and Major depression F32.[address] [place] [address] [id number], [place] [id number] Jun, Type II diabetes mellitus E11.9 [facility] [address] [facility] [id number] [address] [place] [phone] Jun, Depression, major, recurrent , moderate F33.1 [place] [address] [facility] [id number] [address] [place] [phone] May, Major depressive disorder, r ecurrent, moderate F33.1 [place] [address] [facility] [id number] [address] [place] [phone] May, [address] [id number], [place] [id number] May, Edema R60.9 [place] [id number] [address] [place] [address] May, Insomnia G47.00 and Major de pression F32.[id number] [place] [address] [id number] 15 May, 2015 Morbid obesity E66.01 ; Edema R60.9 ; Sh ortness of breath R06.02 ; Benign essential hypertension I10 and Renal insufficiency N28.[address] [id number], [place] [id number] May, Hyperlipemia 272.4 and Renal insufficien cy N28.9 [place] [address] [facility] [id number] [address] [place] [phone] Apr, Major depression F32.9 [place] [address] [facility] [id number] [address] [place] [phone] Apr, [place] [address] [facility] [id number] [address] [place] [phone] Apr, Major depressive disorder, r ecurrent, moderate F33.[address] [id number] [id number] Apr, Type II diabetes mellitus E11.9 ; Benign essential hypertension I10 ; Edema R60.9 and Renal insufficiency N28.9 [place] [address] [address] [place] [id number] [address] [place] [id number] Mar, Major depressive disorder, r ecurrent, moderate F33.1 [place] [address] [address] [place] [id number] [address] [place] [id number] Mar, [place] [address] [place] [id number] [address] [place] [id number] Mar, Major depression F32.9 [facility] [address] [place], [place] [id number] [place] [id number] Mar, Morbid obesity E66.01 ; Benign essential hypertension I10 and Type II diabetes mellitus E11.9 [place] [address] [address] [place] [id number] [address] [place] [id number] Feb, Major depressive disorder, r ecurrent episode, in partial or unspecified remission 296.35 ; Anxiety state, unspecified 300.00 and Morbid obesity 278.01 [place] [id number] [address] [place] [id number] Feb, Major depressive disorder, r ecurrent, moderate F33.1 [place] [id number] [address] [place] [id number] Feb, [address] [id number] [id number] Feb, Vomiting 787.03 and Viral syndrome 079.9 9 [place] [id number] [address] [place] [phone] Feb, Major depression, recurrent 296.30 ; Generalized anxiety disorder 300.02 and No condition on [place] II V71.09 [facility] [address] [id number] [id number] Feb, Skin tag 701.9 [place] [id number] [address] [place] [id number] Feb, [facility] [address] [place] [id number] [address] [place] [phone] Jan, Depression, major, recurrent , moderate 296.32 [facility] [address] [id number] [id number] Jan, Nausea and vomiting 787.01 ; Rib pain on right side 786.50 and Fall on or from sidewalk curb E880.1 [facility] [address] [place] [id number] [address] [place] [phone] Jan, [facility] [address] [place] [id number] [address] [place] [phone] Jan, Major depressive disorder, r ecurrent episode, in partial or unspecified remission 296.35 and Anxiety state, unspecified 300.[id number] [place] [address] [id number] Jan, [facility] [address] [facility] [id number] [address] [place] [address] Jan, Depression, major, recurrent , moderate 296.32 [facility] [address] [place] [id number] [address] [place] [id number] Jan, Major depression, recurrent 296.30 ; No condition on Kahlotus II V71.09 and No condition on axis III V71.[address] [id number] [id number] Jan, Drug-induced nausea and vomiting 787.01 [facility] [address] [facility] [id number] [address] [place] [id number] Jan, Depression, major, recurrent , moderate 296.32 [facility] [address] [facility] [id number] [address] [place] [address] Dec, Depression, major, recurrent , moderate 296.32 [id number] [place] [address] [id number] Dec, Morbid obesity 278.01 ; Metabolic syndro me 277.7 ; Hyperlipemia 272.4 ; Benign essential hypertension 401.1 ; Dietary counseling V65.3 ; Exercise counseling V65.41 and Inflamed skin tag 701.9 [place] [address] [address] Dec, Depression, major, recurrent , moderate 296.32 [place] [address] [address] Dec, [place] [address] [address] Dec, Major depression, recurrent 296.30 ; Anxiety, generalized 300.02 and No condition on Kahlotus II V71.09 [place] [address] [address] Dec, Depression, major, recurrent , moderate 296.32 [place] [address] [address] Dec, Major depressive disorder, r ecurrent episode, moderate 296.[address] [address] Dec, Depression, major, recurrent , moderate 296.32 [place] [address] [address] Dec, Depression, major, recurrent , moderate 296.32 [place] [address] [address] Dec, Depression, major, recurrent , moderate 296.32 [place] [address] [address] Dec, Depression, major, recurrent , moderate 296.32 [place] [address] [address] Nov, Depression, major, recurrent , moderate 296.32 [place] [address] [address] 16 Nov, 2014 Major depression 296.20 ; So cial phobia 300.23 and No condition on Kahlotus II V71.09 [facility] [address] [facility] [id number] [address] [place] [id number] 16 Nov, 2014 Depression, major, recurrent , moderate 296.32 [facility] [address] [place] [id number] [address] [place] [id number] Nov, Major depressive disorder, r ecurrent episode, moderate 296.32 and Generalized anxiety disorder 300.02 [facility] [address] [facility] [id number] [address] [place] [phone] 09 Nov, 2014 Depression, major, recurrent , moderate 296.32 [facility] [address] [place] [id number] [address] [place] [address] Nov, Depression, major, recurrent , moderate 296.32 [facility] [address] [place] [id number] [place] [address] October, Generalized anxiety disorder 300.02 ; No condition on Kahlotus II V71.09 and Major depressive disorder, recurrent 296.30 [facility] [address] [place] [id number] [address] [place] [id number] 14 Sep, 2014 [facility] [address] [place] [id number] [address] [place] [id number] Sep, [facility] [address] [place] [id number] [address] [place] [phone] Aug, [facility] [address] [place] [id number] [address] [place] [phone] Aug, [facility] [address] [place] [id number] [address] [place] [phone] Aug, [facility] [address] [place] [id number] [address] [place] [phone] Aug, [facility] [address] [place] [id number] [address] [place] [phone] Aug, [facility] [address] [id number] [facility] [place] [address] 20 Aug, 2014 [facility] [address] [id number] [address] [place] [address], [place] [address] 20 Aug, 2014 [facility] [address] [id number] [facility] [place] [address] 20 Aug, 2014 [facility] [address] [id number] [address] [place] [address], [place] [address] 13 Aug, 2014 [facility] [address] [id number] [address] [place] [address], [place] [address] 13 Aug, 2014 [facility] [address] [id number] [address] [place] [address], [place] [address] 13 Aug, 2014 [facility] [address] [id number] [address] [place] [address], [place] [address] Aug, [facility] [address] [id number] [address] [place] [address], [place] [address] Aug, [facility] [address] [id number] [address] [place] [address], [place] [address] Aug, [facility] [address] [id number] [address] [place] [address], [place] [address] Aug, [facility] [address] [id number] [address] [place] [address], [place] [address] 10 Aug, 2014 [facility] [address] [id number] [address] [place] [address], [place] [address] Aug, [facility] [address] [id number] [address] [place] [address], [place] [address] Aug, [facility] [address] [id number] [address] [place] [address], [place] [address] Jul, [facility] [address] [id number] [address] [place] [address], [place] [address] Jul, [facility] [address] [id number] [address] [place] [address], [place] [address] Jul, [facility] [address] [id number] [address] [place] [address], [place] [address] Jul, [facility] [address] [id number] [address] [place] [address], [place] [address] Jul, [facility] [address] [id number] [address] [place] [address], [place] [address] Jul, [facility] [address] [id number] [address] [place] [address], [place] [address] Jun, [facility] [address] [id number] [address] [place] [address], [place] [address] Jun, [facility] [address] [id number] [address] [place] [address], [place] [address] Jun, [facility] [address] [id number] [address] [place] [address], [place] [address] Jun, [facility] [address] [id number] [address] [place] [address], [place] [address] Jun, [facility] [address] [id number] [address] [place] [address], [place] [address] Jun, [facility] [address] [id number] [address] [place] [address], [place] [address] Jun, [facility] [address] [id number] [address] [place] [address], [place] [address] Jun, [facility] [address] [id number] [address] [place] [address], [place] [address] Jun, [facility] [address] [id number] [address] [place] [address], [place] [address] Jun, [facility] [address] [id number] [address] [place] [address], [place] [address] Jun, [facility] [address] [id number] [address] [place] [address], [place] [address] Jun, [facility] [address] [id number] [place], [place] [id number] Jun, [facility] [address] [id number] [address] [place] [address], [place] [address] Jun, [facility] [address] [id number] [address] [place] [address], [place] [address] Jun, [facility] [address] [id number] [address] [place] [address], [place] [address] Jun, [facility] [address] [id number] [address] [place] [address], [place] [address] May, [facility] [address] [id number] [address] [place] [address], [place] [address] May, [facility] [address] [id number] [address] [place] [address], [place] [address] May, [facility] [address] [id number] [address] [place] [address], [place] [address] May, [facility] [address] [id number] [address] [place] [address], [place] [address] Apr, [facility] [address] [id number] [address] [place] [address], [place] [address] Apr, [facility] [address] [id number] [address] [place] [address], [place] [address] Apr, [facility] [address] [id number] [address] [place] [address], [place] [address] Apr, [facility] [address] [id number] [address] [place] [address], [place] [address] Apr, [facility] [address] [id number] [address] [place] [address], [place] [address] Apr, [facility] [address] [id number] [address] [place] [address], [place] [address] Apr, [facility] [address] [id number] [address] [place] [address], [place] [address] Apr, [facility] [address] [id number] [address] [place] [address], [place] [address] Apr, [facility] [address] [id number] [address] [place] [address], [place] [address] Apr, [facility] [address] [id number] [address] [place] [address], [place] [address] Apr, [facility] [address] [id number] [address] [place] [address], [place] [address] Apr, [facility] [address] [id number] [address] [place] [address], [place] [address] Apr, [facility] [address] [id number] [address] [place] [address], [place] [address] Apr, [facility] [address] [id number] [address] [place] [address], [place] [address] Apr, [facility] [address] [id number] [address] [place] [address], [place] [address] Apr, [facility] [address] [id number] [address] [place] [address], [place] [address] Apr, [facility] [address] [id number] [address] [place] [id number] Apr, [facility] [address] [id number] [address] [place] [id number] Apr, [facility] [address] [id number] [address] [place] [id number] Apr, [facility] [address] [id number] [address] [place] [address], [place] [address] Mar, [facility] [address] [id number] [address] [place] [address], [place] [address] Mar, [facility] [address] [id number] [address] [place] [id number] Mar, [facility] [address] [id number] [address] [place] [id number] Mar, [facility] [address] [id number] [address] [place] [address], [place] [address] Mar, [facility] [address] [id number] [address] [place] [address], [place] [address] Mar, [facility] [address] [id number] [address] [place] [address], [place] [address] Mar, [facility] [address] [id number] [address] [place] [address], [place] [address] Mar, [facility] [address] [id number] [address] [place] [address], [place] [address] Mar, [facility] [address] [id number] [address] [place] [address], [place] [address] Mar, [facility] [address] [id number] [address] [place] [address], [place] [address] Feb, [facility] [address] [id number] [address] [place] [address], [place] [address] Feb, [facility] [address] [id number] [address] [place] [address], [place] [address] Feb, [facility] [address] [id number] [address] [place] [address], [place] [address] Feb, [facility] [address] [id number] [address] [place] [address], [place] [address] Jan, [facility] [address] [id number] [address] [place] [address], [place] [address] Jan, [facility] [address] [id number] [address] [place] [address], [place] [address] Jan, [facility] [address] [id number] [address] [place] [address], [place] [address] Jan, [facility] [address] [id number] [address] [place] [address], [place] [address] Jan, [facility] [address] [id number] [facility] [place] [address] Jan, [facility] [address] [id number] [facility] [place] [address] Dec, [facility] [address] [id number] [facility] [place] [address] Dec, [facility] [address] [id number] [facility] [place] [address] Nov, [facility] [address] [id number] [address] [place] [address], [place] [address] Nov, [facility] [address] [id number] [address] [place] [address], [place] [address] Nov, [facility] [address] [id number] [address] [place] [address], [place] [address] Nov, [facility] [address] [id number] [address] [place] [address], [place] [address] Nov, [facility] [address] [id number] [address] [place] [address], [place] [address] Nov, [facility] [address] [id number] [address] [place] [address], [place] [address] Sep, [facility] [address] [id number] [address] [place] [address], [place] [address] Sep, [facility] [address] [id number] [address] [place] [address], [place] [address] Sep, [facility] [address] [id number] [address] [place] [address], [place] [address] Sep, [facility] [address] [id number] [address] [place] [address], [place] [address] Aug, [facility] [address] [id number] [address] [place] [address], [place] [address] Aug, [facility] [address] [id number] [address] [place] [address], [place] [address] 14 Jul, 2013 [facility] [address] [id number] [address] [place] [address], [place] [address] 14 Jul, 2013 [facility] [address] [id number] [address] [place] [address], [place] [address] Jun, [facility] [address] [id number] [address] [place] [address], [place] [address] Jun, [facility] [address] [id number] [address] [place] [address], [place] [address] Jun, [facility] [address] [id number] [address] [place] [address], [place] [address] Jun, [facility] [address] [id number] [address] [place] [address], [place] [address] May, [facility] [address] [id number] [address] [place] [address], [place] [address] May, [facility] [address] [id number] [address] [place] [address], [place] [address] May, [facility] [address] [id number] [address] [place] [address], [place] [address] May, [facility] [address] [id number] [address] [place] [address], [place] [address] May, [facility] [address] [id number] [address] [place] [address], [place] [address] May, [facility] [address] [id number] [address] [place] [address], [place] [address] Apr, [facility] [address] [id number] [address] [place] [address], [place] [address] Apr, [facility] [address] [id number] [address] [place] [address], [place] [address] Apr, [facility] [address] [id number] [address] [place] [address], [place] [address] Apr, [facility] [address] [id number] [address] [place] [address], [place] [address] Mar, [facility] [address] [id number] [address] [place] [address], [place] [address] Mar, [facility] [address] [id number] [address] [place] [address], [place] [address] Mar, [facility] [address] [id number] [address] [place] [address], [place] [address] Mar, [facility] [address] [id number] [address] [place] [address], [place] [address] Feb, [facility] [address] [id number] [place] [id number] Jan, [facility] [address] [id number] [address] [place] [address], [place] [address] Jan, [facility] [address] [id number] [address] [place] [address], [place] [address] Dec, [facility] [address] [id number] [address] [place] [address], [place] [address] Dec, [facility] [address] [id number] [address] [place] [address], [place] [address] Dec, [facility] [address] [facility] [address] [id number] [place] [id number] Dec, [facility] [address] [id number] [address] [place] [address], [place] [address] 17 Nov, 2012 [facility] [address] [id number] [address] [place] [address], [place] [address] 14 Nov, 2012 [facility] [address] [id number] [address] [place] [address], [place] [address] 12 Nov, 2012 [facility] [address] [id number] [address] [place] [address], [place] [address] Nov, [facility] [address] [id number] [address] [place] [address], [place] [address] Nov, [facility] [address] [id number] [address] [place] [id number] October, [facility] [address] [facility] [id number] [address] [place] [id number] October, [facility] [address] [facility] [id number] [address] [place] [id number] Aug, [facility] [address] [facility] [id number] [address] [place] [id number] Nov, IMMUNIZATIONS No Known Immunizations SOCIAL HISTORY Never Assessed REASON FOR VISIT PA for Viibryd PLAN OF CARE VITAL SIGNS MEDICATIONS Medication Instructions Dosage Frequency Start Date End Date Duration S chandni Viibryd 20 mg Orally Once a day 1 tablet with food 24h May, Active RESULTS No Results PROCEDURES No Known [...] 03/2016 Hospitalization History gastric sleeve Hospitalization History [facility] ER Trouble with left shoulder blade 08/2017
--- OUTSIDE RECORDS SUMMARY | 2019-11-29 09:46 | XMS REPORT ---
Author Author ISIAH Curt FIELDSON Organization [facility] Address [address] [place] [address] Care Team Providers Care Plant Quality Manager Name Role Phone CAS JOYCE Unavailable PROBLEMS Type Condition ICD9-CM Code [id number] Code Onset Dates Condition S tatus SNOMED Code Problem Major depression F32.9 Active 370 742227 Problem Morbid obesity E66.01 Active 02941 6002 Problem Benign essential hypertension I10 Active 4513409 Problem Insomnia G47.00 Active 841022788 Problem Hyperlipemia E78.5 Active 2807273 4 Problem Acute bacterial conjunctivitis of left eye H10.32 Active 925875896 Problem Recurrent major depressive disorder, in partial remission F33.41 Active 56238005 Problem Edema R60.9 Active 008344475 Problem Type II diabetes mellitus E11.9 Acti ve 90644701 Problem Callus of foot L84 Active 01294 1005 Problem Renal insufficiency N28.9 Active 829693123 ALLERGIES Substance Reaction Event Type Date Status Egg White throat swells Non Drug Allergy Jun, Active Cows Milk throat swells Non Drug Allergy Jun, Active Wheat throat swells Non Drug Allergy Jun, Active Peanuts throat swells Non Drug Allergy Jun, Active [place] throat swells Non Drug Allergy Jun, Active [place] throat swells Non Drug Allergy Jun, Active Ragweed throat swells Non Drug Allergy Jun, Active SOCIAL HISTORY No smoking Hx information available PLAN OF CARE Activity Details Follow Up prn Reason: VITAL SIGNS Height 71.5 in 2016-07-12 Weight 406.6 lbs 2016-07-12 Temperature 98.9 degrees Fahrenheit 2016-07-12 Heart Rate 90 bpm 2016-07-12 Respiratory Rate 20 2016-07-12 BMI 55.91 kg/m2 2016-07-12 Blood pressure systolic 120 mmHg 2016-07-12 Blood pressure diastolic 78 mmHg 2016-07-12 MEDICATIONS Medication Instructions Dosage Frequency Start Date End Date Duration S chandni Omeprazole 20 MG 1 Tablet by Oral route 1 time per day Active Cetirizine HCl 10 mg Orally Once a day 1 tablet 24h Active Rexulti 1 MG 1 tablet Once a day Orally 30 days 30 Active Lisinopril 40 MG TAKE ONE TABLET BY MOUTH ONCE DAILY. 90 Active Erythromycin 5 MG/GM Ophthalmic Four times a day 1 application 6h Jun, 7 Jul, 2016 07 days Active Montelukast Sodium 10 MG TAKE ONE TABLET BY MOUTH DAILY Active Flovent HFA 110 mcg/actuation 1-3 Puffs 1 time per day 1 October, Active Flonase 50 mcg/actuation inhale 1 spray (50 mcg) in each nostril by intranasal route 2 times per day Nov, Active Atenolol 50 MG Orally Once a day 1 tablet 24h Active Trintellix 20 mg Orally Once a day 1 tablet 24h Active RESULTS No Results PROCEDURES Procedure Date Ordered Related Diagnosis Body Site Office Visit, Est Pt., Level 3 Jul 12, 2016 IMMUNIZATIONS No Known Immunizations
--- OUTSIDE RECORDS SUMMARY | 2019-11-29 09:47 | XMS REPORT ---
Author Author Curt CASTRO Organization [facility] Address [address] [place] [address] Care Team Providers Care Dietary Tech Name Role Phone JADEN CASTROA Unavailable PROBLEMS Type Condition ICD9-CM Code AKI44-JK Code Onset Dates Condition S tatus SNOMED Code Problem Metabolic syndrome E88.81 Active 2 54843370 Problem Severe episode of recurrent major depressive disorder, without psychotic features F33.2 Active 86214433 Problem Anxiety F41.9 Active 60667494 Problem Depressive disorder, not elsewhere classified F32. 9 Active 47169978 Problem Sciatica, right side M54.31 Active 475899117211102 Problem Mixed obsessional thoughts and acts F42.2 Active 35448576 Problem Vitamin D deficiency E55.9 Active 51786179 Problem DANIELA (generalized anxiety disorder) F41.1 Active 19624505 Problem BMI 45.0-49.9, adult Z68.42 Active 273336541 Problem Hyperlipemia E78.5 Active 9732181 4 Problem Major depression F32.9 Active 370 978062 Problem Insomnia G47.00 Active 402524196 Problem Renal insufficiency N28.9 Active 065952798 Problem Edema R60.9 Active 949629625 Problem Morbid obesity E66.01 Active 26130 6002 Problem Callus of foot L84 Active 80112 1005 Problem Benign essential hypertension I10 Active 3567447 Problem Recurrent major depressive disorder, in partial remission F33.41 Active 64683301 ALLERGIES Substance Reaction Event Type Date Status [place] throat swells Drug Allergy October, Active [...] October, Active ENCOUNTERS Encounter Location Date Diagnosis [facility] [address] [facility] [id number] [address] [place] [phone] Jan, [facility] [address] [id number], [place] [id number] Jan, [facility] [address] [id number], [place] [id number] Jan, Benign essential hypertension I10 ; BMI 45.0-49.9, adult Z68.42 ; Metabolic syndrome E88.81 and Allergic rhinitis, unspecified seasonality, unspecified trigger J30.9 [facility] [address] [facility] [id number] [address] [place] [phone] Dec, DANIELA (generalized anxiety dis order) F41.1 and Depressive disorder, not elsewhere classified F32.9 [facility] [address] [id number], [place] [id number] Dec, Recurrent major depressive disorder, in partial remission F33.41 [facility] [address] [id number], [place] [id number] Dec, [facility] [address] [id number], [place] [id number] Nov, [facility] [address] [id number], [place] [id number] Nov, Recurrent major depressive disorder, in partial remission F33.41 [facility] [address] [facility] [id number] [address] [place] [phone] Nov, Recurrent major depressive d isorder, in partial remission F33.41 ; Mixed obsessional thoughts and acts F42.2 ; DANIELA (generalized anxiety disorder) F41.1 and BMI 45.0-49.9, adult Z68.42 [facility] [address] [id number], [place] [id number] Nov, [facility] [address] [id number], [place] [id number] Nov, Other conjunctivitis of both eyes H10.89 and Sciatica, right side M54.31 [facility] [address] [id number], [place] [id number] Nov, [facility] [address] [id number], [place] [id number] Nov, [facility] [address] [id number], [place] [id number] October, [facility] [address] [id number], [place] [id number] October, [facility] [address] [facility] [id number] [address] [address] October, BMI 45.0-49.9, adult Z68.42 ; Mixed obsessional thoughts and acts F42.2 ; Recurrent major depressive disorder, in partial remission F33.41 and DANIELA (generalized anxiety disorder) F41.1 [facility] [address] [id number], [place] [id number] October, Benign essential hypertension I10 ; Morb id obesity E66.01 and BMI 45.0-49.9, adult Z68.42 [facility] [address] [id number], [place] [id number] Sep, [facility] [address] [id number], [place] [id number] Sep, [facility] [address] [id number], [place] [id number] Sep, [facility] [address] [id number], [place] [id number] Sep, Hospital discharge follow-up Z09 ; Aller gic rhinitis, unspecified seasonality, unspecified trigger J30.9 and Shortness of breath R06.02 [facility] [address] [id number], [place] [id number] Sep, Recurrent major depressive disorder, in partial remission F33.41 [facility] [address] [id number], [place] [id number] Aug, Irritable mood R45.4 [place] [address] [facility] [id number] [address] [place] [phone] Aug, [place] [id number] [place] [address] [id number] Jul, Benign essential hypertension I10 ; Robert a R60.9 and Impacted cerumen of left ear H61.22 [place] [address] [place] [id number] [address] [place] [phone] 14 Jul, 2017 Major depression F32.9 ; Rec urrent major depressive disorder, in partial remission F33.41 and Anxiety F41.9 [place] [address] [place] [id number] [address] [place] [phone] Jun, Major depression F32.9 ; Rec urrent major depressive disorder, in partial remission F33.41 and Anxiety F41.[address] [place] [id number] [place] [address] [id number] Jun, Major depression F32.9 ; Morbid obesity E66.01 ; Irritable mood R45.4 ; Hand weakness R29.898 and Vitamin D deficiency E55.[address] [place] [id number] [place] [address] [id number] Jun, [place] [id number] [place] [address] [id number] May, Major depression F32.9 [place] [address] [facility] [id number] [address] [place] [address] May, Major depression F32.[address] [place] [address] [id number], [place] [id number] May, BMI 50.0-59.9, adult Z68.43 ; Major depr ession F32.9 ; Anxiety F41.9 ; Hypertrophic toenail L60.2 and Pain of left great toe M79.[address] [place] [id number] [place] [address] [id number] May, Recurrent major depressive disorder, in partial remission F33.41 [facility] [address] [facility] [id number] [address] [place] [phone] Apr, [facility] [address] [id number], [place] [id number] Apr, [facility] [address] [facility] [id number] [address] [place] [phone] Apr, Major depression F32.9 [facility] [id number] [place] [address] [id number] Apr, Severe episode of recurrent major depres sive disorder, without psychotic features F33.2 ; Anxiety F41.9 and Insomnia G47.00 [facility] [address] [id number], [place] [id number] Apr, [facility] [address] [facility] [id number] [address] [place] [phone] Apr, [facility] [address] [id number], [place] [id number] Apr, [facility] [id number] [place] [address] [id number] Mar, [facility] [id number] [place] [address] [id number] Mar, Allergic conjunctivitis of both eyes H10 .13 [facility] [address] [facility] [id number] [address] [place] [phone] Mar, Major depression F32.9 [facility] [address] [id number], [place] [id number] Mar, Metabolic syndrome E88.81 ; History of g astric bypass Z98.890 ; Benign essential hypertension I10 and Allergic conjunctivitis of both eyes H10.13 [facility] [address] [facility] [id number] [address] [place] [address] Mar, Major depression F32.9 [facility] [address] [id number], [place] [id number] Feb, [facility] [address] [facility] [id number] [address] [place] [phone] Feb, Major depression F32.[address] [facility] [place] [id number] [place] [address] [id number] Feb, Subacute maxillary sinusitis J01.00 and Bronchitis J40 [place] [address] [facility] [id number] [address] [place] [phone] Feb, Major depressive disorder, r ecurrent, moderate F33.1 [facility] [id number] [place] [address] [id number] Jan, [facility] [address] [id number] [place] [address] [id number] Jan, Acute non-recurrent maxillary sinusitis J01.00 and Skin tag L91.[address] [id number], [place] [id number] Jan, Cough R05 and Sinus congestion R09.81 [facility] [address] [place] [address] [id number] [place] [address] [id number] Jan, [facility] [address] [id number] [place] [address] [id number] Jan, Benign essential hypertension I10 ; Hist ory of gastric bypass Z98.890 and Nausea and vomiting in adult R11.2 [facility] [address] [facility] [id number] [address] [place] [phone] Jan, Major depressive disorder, r ecurrent, moderate F33.1 [place] [address] [facility] [id number] [address] [place] [phone] Dec, Insomnia G47.00 ; Recurrent major depressive disorder, in partial remission F33.41 and Morbid obesity E66.[address] [facility] [place] [address] [place] [address] [id number] [place] [address] [id number] Dec, [address] [id number], [place] [id number] Dec, Chronic bacterial conjunctivitis of left eye H10.[address] [id number], [place] [id number] Nov, [address] [id number], [place] [id number] Nov, Dental examination Z01.[address] [id number] [place] [address] [id number] Nov, Benign essential hypertension I10 ; Hist ory of gastric bypass Z98.890 and Nausea and vomiting in adult R11.[address] [phone] Nov, Major depressive disorder, r ecurrent, moderate F33.1 ; Generalized anxiety disorder F41.1 and Insomnia due to other mental disorder F51.05 [place] [address] [place] [id number] [address] [place] [phone] Nov, Recurrent major depressive d isorder, in partial remission F33.41 ; Insomnia G47.00 and Morbid obesity E66.01 [facility] [id number] [facility] [id number] October, Abscess of left arm L02.414 [place] [address] [place] [id number] [address] [place] [phone] October, Morbid obesity E66.01 ; Lida r depression F32.9 and Recurrent major depressive disorder, in partial remission F33.41 [address] [id number], [place] [id number] Sep, Benign essential hypertension I10 ; Morb id obesity E66.01 ; S/P gastric bypass Z98.84 ; Abscess L02.91 and Chronic bacterial conjunctivitis of left eye H10.[address] [id number], [place] [id number] Sep, Dental examination Z01.20 [place] [address] [place] [phone] Sep, Morbid obesity E66.01 ; Lida r depression F32.9 and Recurrent major depressive disorder, in partial remission F33.41 [place] [address] [facility] [id number] [address] [place] [phone] Jul, [place] [address] [facility] [id number] [address] [place] [phone] Jul, Major depressive disorder, r ecurrent, moderate F33.1 [place] [address] [place] [id number] [address] [place] [phone] Jul, Major depressive disorder, r ecurrent, moderate F33.1 and Generalized anxiety disorder F41.[address] [facility] [place] [id number] [place] [address] [id number] Jul, Cough R05 [place] [address] [place] [phone] Jul, Morbid obesity E66.01 ; Lida r depression F32.9 and Recurrent major depressive disorder, in partial remission F33.[address] [facility] [place] [id number] [place] [id number] Jul, [facility] [place] [id number] [place] [address] [id number] Jul, [facility] [place] [id number] [place] [address] [id number] Jul, Gastroenteritis K52.9 and Cough R[address] [facility] [id number] [place] [address] [id number] Jun, Acute bacterial conjunctivitis of left e ye H10.32 [place] [address] [facility] [id number] [address] [place] [phone] Jun, [place] [address] [facility] [id number] [address] [place] [phone] Jun, Recurrent major depressive d isorder, in partial remission F33.41 [facility] [address] [facility] [id number] [address] [place] [phone] 28 May, 2016 Major depression F32.9 and M orbid obesity E66.01 [facility] [address] [facility] [id number] [address] [place] [phone] May, [facility] [id number] [place] [address] [id number] May, Thrush B37.0 [facility] [address] [facility] [id number] [address] [place] [phone] Apr, Major depressive disorder, r ecurrent, moderate F33.1 [place] [address] [facility] [id number] [address] [place] [address] Apr, Insomnia G47.00 ; Major depr ession F32.9 and Recurrent major depressive disorder, in partial remission F33.41 [place] [address] [facility] [id number] [address] [place] [phone] Apr, [facility] [address] [facility] [id number] [address] [place] [phone] 02 Apr, 2016 Major depression F32.9 and R ecurrent major depressive disorder, in partial remission F33.[address] [id number] [place] [address] [id number] Mar, Benign essential hypertension I10 ; Morb id obesity E66.01 ; Impacted cerumen of both ears H61.23 ; Laceration of finger of right hand, initial encounter S61.219A and Encounter for immunization Z23 [facility] [address] [facility] [id number] [address] [place] [phone] Mar, [place] [address] [facility] [id number] [address] [place] [phone] 13 Mar, 2016 [place] [address] [facility] [id number] [address] [place] [phone] Mar, [facility] [address] [id number], [place] [id number] Feb, Nausea R11.0 ; Blood in the stool K92.1 and Benign essential hypertension I10 [facility] [address] [facility] [id number] [address] [place] [phone] Feb, Major depression F32.9 and R ecurrent major depressive disorder, in partial remission F33.41 [facility] [address] [id number], [place] [id number] Feb, Recurrent major depressive disorder, in partial remission F33.41 [facility] [address] [id number], [place] [id number] Feb, [facility] [address] [id number], [place] [id number] Jan, [facility] [address] [id number], [place] [id number] Jan, Benign essential hypertension I10 ; Robert a R60.9 and Hyperlipidemia, unspecified hyperlipidemia type E78.5 [facility] [address] [id number], [place] [id number] Jan, Recurrent major depressive disorder, in partial remission F33.41 [facility] [address] [id number] [facility] [id number] Jan, [facility] [place] [address] [id number], [place] [id number] Jan, [facility] [place] [address] [id number], [place] [id number] Jan, [facility] [address] [facility] [id number] [address] [place] [phone] Jan, [facility] [address] [facility] [id number] [address] [place] [phone] Dec, [facility] [address] [facility] [id number] [address] [place] [phone] Nov, [facility] [address] [facility] [id number] [address] [place] [phone] Nov, Major depression F32.9 [facility] [address] [facility] [id number] [address] [place] [phone] Nov, [facility] [address] [facility] [id number] [address] [place] [phone] Nov, [facility] [address] [facility] [id number] [address] [place] [phone] Nov, Major depressive disorder, r ecurrent episode, mild F33.0 and Anxiety F41.[address] [facility] [id number] [place] [address] [id number] Nov, [place] [id number] [place] [address] [id number] October, Left elbow pain M25.522 and Other season al allergic rhinitis J30.2 [place] [id number] [id number] [place] [address] [id number] October, [place] [address] [facility] [id number] [address] [place] [phone] October, Major depressive disorder, r ecurrent, moderate F33.1 [place] [address] [facility] [id number] [address] [place] [phone] October, Major depression F32.9 [place] [address] [facility] [id number] [address] [place] [phone] Sep, Sneads or callus L84 and Onych omycosis B35.1 [facility] [address] [facility] [id number] [address] [place] [phone] Sep, Major depressive disorder, r ecurrent, moderate F33.1 [facility] [address] [facility] [id number] [address] [place] [phone] Sep, Major depression F32.9 [facility] [address] [facility] [id number] [address] [place] [phone] Sep, Moderate episode of recurren t major depressive disorder F33.[address] [facility] [place] [address] [id number], [place] [id number] Sep, Muscle strain T14.8 [facility] [address] [facility] [id number] [address] [place] [phone] Aug, Major depression F32.9 [facility] [address] [facility] [id number] [address] [place] [phone] Aug, Major depression F32.9 [facility] [address] [facility] [id number] [address] [place] [phone] Jul, Morbid obesity E66.01 and Ma cora depression F32.9 [facility] [address] [facility] [id number] [address] [place] [phone] Jul, Depression, major, recurrent , moderate F33.[address] [facility] [place] [address] [id number], [place] [id number] Jul, [facility] [address] [facility] [id number] [address] [place] [phone] Jul, [facility] [address] [facility] [id number] [address] [place] [phone] Jul, Major depression F32.9 and M orbid obesity E66.[address] [facility] [place] [address] [place] [address] A[id number] [place] [id number] Jul, Type II diabetes mellitus E11.9 ; Callus of foot L84 ; Benign essential hypertension I10 and Renal insufficiency N28.9 [facility] [address] [facility] [id number] [address] [place] [id number] Jul, Depression, major, recurrent , moderate F33.1 [facility] [address] [facility] [id number] [address] [place] [id number] Jul, Major depression F32.9 [facility] [address] [facility] [id number] [address] [place] [id number] Jul, [place] [address] [facility] [id number] [address] [place] [id number] Jun, Major depression F32.9 [place] [address] [facility] [id number] [address] [place] [phone] Jun, Major depressive disorder, r ecurrent, moderate F33.1 [place] [address] [address] [place] [id number] [address] [place] [id number] Jun, [place] [address] [address] [place] [id number] [address] [place] [id number] Jun, Major depressive disorder, r ecurrent, moderate F33.1 and Major depression F32.[address] [place] [id number] [place] [id number] Jun, Type II diabetes mellitus E11.9 [place] [address] [address] [place] [id number] [address] [place] [phone] Jun, Depression, major, recurrent , moderate F33.1 [place] [address] [address] [facility] [id number] [address] [place] [phone] May, Major depressive disorder, r ecurrent, moderate F33.1 [place] [address] [id number] [place] [phone] May, [place] [address] [id number] [id number] May, Edema R60.9 [place] [address] [address] [place] [id number] [address] [place] [id number] 17 May, 2015 Insomnia G47.00 and Major de pression F32.[address] [facility] [address] [id number] [id number] May, 2015 Morbid obesity E66.01 ; Edema R60.9 ; Sh ortness of breath R06.02 ; Benign essential hypertension I10 and Renal insufficiency N28.[address] [facility] [place] [address] [id number] [id number] May, Hyperlipemia 272.4 and Renal insufficien cy N28.9 [facility] [address] [facility] [id number] [address] [place] [phone] Apr, Major depression F32.9 [facility] [facility] [address] [facility] [id number] [address] [place] [address] Apr, [place] [address] [facility] [id number] [address] [place] [address] Apr, Major depressive disorder, r ecurrent, moderate F33.[address] [facility] [address] [id number] [id number] Apr, Type II diabetes mellitus E11.9 ; Benign essential hypertension I10 ; Edema R60.9 and Renal insufficiency N28.9 [place] [address] [facility] [id number] [address] [place] [address] Mar, Major depressive disorder, r ecurrent, moderate F33.1 [place] [address] [facility] [id number] [address] [place] [address] Mar, [place] [address] [facility] [id number] [address] [place] [address] Mar, Major depression F32.[address] [facility] [id number] [place] [id number] Mar, Morbid obesity E66.01 ; Benign essential hypertension I10 and Type II diabetes mellitus E11.9 [place] [address] [facility] [id number] [address] [place] [address] Feb, Major depressive disorder, r ecurrent episode, in partial or unspecified remission 296.35 ; Anxiety state, unspecified 300.00 and Morbid obesity 278.01 [place] [address] [facility] [id number] [address] [place] [address] Feb, Major depressive disorder, r ecurrent, moderate F33.1 [place] [address] [facility] [id number] [address] [place] [address] Feb, [address] [id number] [id number] 16 Feb, 2015 Vomiting 787.03 and Viral syndrome 079.9 9 [facility] [address] [facility] [id number] [address] [place] [address] 15 Feb, 2015 Major depression, recurrent 296.30 ; Generalized anxiety disorder 300.02 and No condition on [place] II V71.[address] [id number][place] [id number] Feb, Skin tag 701.9 [facility] [address] [facility] [id number] [address] [place] [address] Feb, [facility] [address] [place] [id number] [address] [place] [address] Jan, Depression, major, recurrent , moderate 296.[address] [id number][place] [id number] Jan, Nausea and vomiting 787.01 ; Rib pain on right side 786.50 and Fall on or from sidewalk curb E880.1 [facility] [address] [facility] [id number] [address] [place] [address] Jan, [facility] [address] [facility] [id number] [address] [place] [address] Jan, Major depressive disorder, r ecurrent episode, in partial or unspecified remission 296.35 and Anxiety state, unspecified 300.[address] [id number][place] [id number] Jan, [facility] [address] [facility] [id number] [address] [place] [address] Jan, Depression, major, recurrent , moderate 296.32 [facility] [address] [facility] [id number] [address] [place] [address] Jan, Major depression, recurrent 296.30 ; No condition on [place] II V71.09 and No condition on axis III V71.[address] [id number][place] [id number] Jan, Drug-induced nausea and vomiting 787.01 [place] [id number] [address] [place] [address] Jan, Depression, major, recurrent , moderate 296.32 [place] [id number] [address] [place] [address] Dec, Depression, major, recurrent , moderate 296.32 [facility] [address] [id number][place] [id number] Dec, Morbid obesity 278.01 ; Metabolic syndro me 277.7 ; Hyperlipemia 272.4 ; Benign essential hypertension 401.1 ; Dietary counseling V65.3 ; Exercise counseling V65.41 and Inflamed skin tag 701.9 [place] [id number] [address] [place] [address] Dec, Depression, major, recurrent , moderate 296.[address] [address] Dec, [address] [address] Dec, Major depression, recurrent 296.30 ; Anxiety, generalized 300.02 and No condition on [place] II V71.09 [place] [id number] [address] [place] [address] Dec, Depression, major, recurrent , moderate 296.32 [place] [id number] [address] [place] [address] Dec, Major depressive disorder, r ecurrent episode, moderate 296.[address] [address] Dec, Depression, major, recurrent , moderate 296.32 [place] [id number] [address] [place] [address] Dec, Depression, major, recurrent , moderate 296.32 [place] [address] [place] [id number] [address] [place] [address] Dec, Depression, major, recurrent , moderate 296.32 [facility] [address] [place] [id number] [place] [address] Dec, Depression, major, recurrent , moderate 296.32 [facility] [address] [address] Nov, Depression, major, recurrent , moderate 296.32 [place] [address] [address] Nov, Major depression 296.20 ; So cial phobia 300.23 and No condition on [place] II V71.09 [place] [address] [address] Nov, Depression, major, recurrent , moderate 296.32 [place] [address] [address] Nov, Major depressive disorder, r ecurrent episode, moderate 296.32 and Generalized anxiety disorder 300.02 [place] [address] [address] Nov, Depression, major, recurrent , moderate 296.32 [place] [address] [address] Nov, Depression, major, recurrent , moderate 296.32 [place] [address] [address] October, Generalized anxiety disorder 300.02 ; No condition on [place] II V71.09 and Major depressive disorder, recurrent 296.30 [place] [address] [address] Sep, [place] [address] [place] [id number] [place] [address] Sep, [place] [address] [address] 24 Aug, 2014 [facility] [address] [id number] [facility] [place] [address] 24 Aug, 2014 [facility] [address] [id number] [address] [place] [address], [place] [address] 23 Aug, 2014 [facility] [address] [id number] [address] [place] [address], [place] [address] 23 Aug, 2014 [facility] [address] [id number] [address] [place] [address], [place] [address] 20 Aug, 2014 [facility] [address] [id number] [address] [place] [address], [place] [address] 20 Aug, 2014 [facility] [address] [id number] [address] [place] [address], [place] [address] 20 Aug, 2014 [facility] [address] [id number] [address] [place] [address], [place] [address] 20 Aug, 2014 [facility] [address] [id number] [address] [place] [address], [place] [address] 13 Aug, 2014 [facility] [address] [id number] [address] [place] [address], [place] [address] 13 Aug, 2014 [facility] [address] [id number] [address] [place] [address], [place] [address] 13 Aug, 2014 [facility] [address] [id number] [address] [place] [address], [place] [address] 13 Aug, 2014 [facility] [address] [id number] [address] [place] [address], [place] [address] 12 Aug, 2014 [facility] [address] [id number] [address] [place] [address], [place] [address] 12 Aug, 2014 [facility] [address] [id number] [address] [place] [address], [place] [address] 10 Aug, 2014 [facility] [address] [id number] [address] [place] [address], [place] [address] 10 Aug, 2014 [facility] [address] [id number] [address] [place] [address], [place] [address] Aug, [facility] [address] [id number] [address] [place] [address], [place] [address] Aug, [facility] [address] [id number] [address] [place] [address], [place] [address] Jul, [facility] [address] [id number] [address] [place] [address], [place] [address] Jul, [facility] [address] [id number] [address] [place] [address], [place] [address] Jul, [facility] [address] [id number] [address] [place] [address], [place] [address] Jul, [facility] [address] [id number] [address] [place] [address], [place] [address] Jul, [facility] [address] [id number] [address] [place] [address], [place] [address] Jul, [facility] [address] [id number] [address] [place] [address], [place] [address] Jun, [facility] [address] [id number] [address] [place] [address], [place] [address] Jun, [facility] [address] [id number] [address] [place] [address], [place] [address] Jun, [facility] [address] [id number] [address] [place] [address], [place] [address] Jun, [facility] [address] [id number] [address] [place] [address], [place] [address] Jun, [facility] [address] [id number] [address] [place] [address], [place] [address] Jun, [facility] [address] [id number] [address] [place] [address], [place] [address] Jun, [facility] [address] [id number] [address] [place] [address] [address] Jun, [facility] [address] [id number] [address] [place] [address], [place] [address] Jun, [facility] [address] [id number] [address] [place] [address], [place] [address] Jun, [facility] [address] [id number] [address] [place] [address], [place] [address] Jun, [facility] [address] [id number] [address] [place] [address], [place] [address] Jun, [facility] [address] [id number] [place] [id number] Jun, [facility] [address] [id number] [address] [place] [address], [place] [address] Jun, [facility] [address] [id number] [address] [place] [address], [place] [address] Jun, [facility] [address] [id number] [address] [place] [address], [place] [address] Jun, [facility] [address] [id number] [address] [place] [address], [place] [address] May, [facility] [address] [id number] [address] [place] [address] May, [facility] [address] [id number] [address] [place] [address], [place] [address] May, [facility] [address] [id number] [address] [place] [address] May, [facility] [address] [id number] [address] [place] [address], [place] [address] Apr, [facility] [address] [id number] [address] [place] [address], [place] [address] Apr, [facility] [address] [id number] [address] [place] [address], [place] [address] Apr, [facility] [address] [id number] [address] [place] [address] Apr, [facility] [address] [id number] [address] [place] [address], [place] [address] Apr, [facility] [address] [id number] [address] [place] [address], [place] [address] Apr, [facility] [address] [id number] [address] [place] [address], [place] [address] Apr, [facility] [address] [id number] [address] [place] [address], [place] [address] Apr, [facility] [address] [id number] [address] [place] [address], [place] [address] Apr, [facility] [address] [id number] [address] [place] [address], [place] [address] Apr, [facility] [address] [id number] [address] [place] [address] Apr, [facility] [address] [id number] [address] [place] [address], [place] [address] Apr, [facility] [address] [id number] [address] [place] [address], [place] [address] Apr, [facility] [address] [id number] [address] [place] [address], [place] [address] Apr, [facility] [address] [id number] [address] [place] [address], [place] [address] Apr, [facility] [address] [id number] [address] [place] [address] Apr, [facility] [address] [id number] [address] [place] [address] Apr, [facility] [address] [id number] [address] [place] [address], [place] [address] Apr, [facility] [address] [id number] [address] [place] [address] Apr, [facility] [address] [id number] [address] [place] [address], [place] [address] Apr, [facility] [address] [id number] [address] [place] [address], [place] [address] Mar, [facility] [address] [id number] [address] [place] [address], [place] [address] Mar, [facility] [address] [id number] [address] [place] [address], [place] [address] Mar, [facility] [address] [id number] [address] [place] [address], [place] [address] Mar, [facility] [address] [id number] [address] [place] [address], [place] [address] Mar, [facility] [address] [id number] [address] [place] [address], [place] [address] Mar, [facility] [address] [id number] [address] [place] [address], [place] [address] Mar, [facility] [address] [id number] [address] [place] [address], [place] [address] Mar, [facility] [address] [id number] [address] [place] [address], [place] [address] Mar, [facility] [address] [id number] [address] [place] [address], [place] [address] Mar, [facility] [address] [id number] [address] [place] [address], [place] [address] Feb, [facility] [address] [id number] [address] [place] [address], [place] [address] Feb, [facility] [address] [id number] [address] [place] [address], [place] [address] Feb, [facility] [address] [id number] [address] [place] [address], [place] [address] Feb, [facility] [address] [id number] [address] [place] [address], [place] [address] Jan, [facility] [address] [id number] [facility] [place] [address] Jan, [facility] [address] [id number] [facility] [place] [address] Jan, [facility] [address] [id number] [facility] [place] [address] Jan, [facility] [address] [id number] [address] [place] [address], [place] [address] Jan, [facility] [address] [id number] [address] [place] [address], [place] [address] Jan, [facility] [address] [id number] [address] [place] [address], [place] [address] Dec, [facility] [address] [id number] [address] [place] [address], [place] [address] Dec, [facility] [address] [id number] [address] [place] [address], [place] [address] Nov, [facility] [address] [id number] [address] [place] [address], [place] [address] Nov, [facility] [address] [id number] [address] [place] [address], [place] [address] Nov, [facility] [address] [id number] [address] [place] [address], [place] [address] Nov, [facility] [address] [id number] [address] [place] [address], [place] [address] Nov, [facility] [address] [id number] [address] [place] [address], [place] [address] Nov, [facility] [address] [id number] [address] [place] [address], [place] [address] Sep, [facility] [address] [id number] [address] [place] [address], [place] [address] Sep, [facility] [address] [id number] [address] [place] [address], [place] [address] Sep, [facility] [address] [id number] [address] [place] [address], [place] [address] Sep, [facility] [address] [id number] [address] [place] [address], [place] [address] Aug, [facility] [address] [id number] [address] [place] [address], [place] [address] Aug, [facility] [address] [id number] [address] [place] [address], [place] [address] Jul, [facility] [address] [id number] [address] [place] [address], [place] [address] Jul, [facility] [address] [id number] [address] [place] [address], [place] [address] Jun, [facility] [address] [id number] [address] [place] [address], [place] [address] Jun, [facility] [address] [id number] [address] [place] [address], [place] [address] Jun, [facility] [address] [id number] [address] [place] [address], [place] [address] Jun, [facility] [address] [id number] [address] [place] [address], [place] [address] May, [facility] [address] [id number] [address] [place] [address], [place] [address] 24 May, 2013 [facility] [address] [id number] [address] [place] [address], [place] [address] May, [facility] [address] [id number] [address] [place] [address], [place] [address] May, [facility] [address] [id number] [address] [place] [address], [place] [address] May, [facility] [address] [id number] [address] [place] [address], [place] [address] May, [facility] [address] [id number] [address] [place] [address], [place] [address] Apr, [facility] [address] [id number] [address] [place] [address], [place] [address] Apr, [facility] [address] [id number] [address] [place] [address], [place] [address] Apr, [facility] [address] [id number] [address] [place] [address], [place] [address] Apr, [facility] [address] [id number] [address] [place] [address], [place] [address] Mar, [facility] [address] [id number] [address] [place] [address], [place] [address] Mar, [facility] [address] [id number] [address] [place] [address], [place] [address] Mar, [facility] [address] [id number] [address] [place] [address], [place] [address] Mar, [facility] [address] [id number] [address] [place] [address], [place] [address] Feb, [facility] [address] [facility] [id number] [place] [id number] Jan, [facility] [address] [id number] [address] [place] [address], [place] [id number] Jan, [facility] [address] [id number] [address] [place] [id number] Dec, [facility] [address] [id number] [address] [place] [address], [place] [address] Dec, [facility] [address] [id number] [address] [place] [address], [place] [id number] Dec, [facility] [address] [id number] [place] [id number] Dec, [facility] [address] [id number] [address] [place] [address], [place] [address] Nov, [facility] [address] [id number] [address] [place] [id number] Nov, [facility] [address] [id number] [address] [place] [id number] Nov, [facility] [address] [id number] [address] [place] [id number] Nov, [facility] [address] [id number] [address] [place] [id number] Nov, [facility] [address] [id number] [address] [place] [id number] October, [facility] [address] [id number] [address] [place] [phone] October, [facility] [address] [id number] [address] [place] [phone] Aug, [facility] [address] [id number] [address] [place] [phone] Nov, IMMUNIZATIONS No Known Immunizations SOCIAL HISTORY [facility] Activity Details Follow Up 6-8 W Reason: VITAL SIGNS Height 71.5 in 2017-10-24 Weight 357.5 lbs 2017-10-24 Heart Rate 64 bpm 2017-10-24 Respiratory Rate 20 2017-10-24 BMI 49.16 kg/m2 2017-10-24 Blood pressure systolic 140 mmHg 2017-10-24 Blood pressure diastolic 78 mmHg 2017-10-24 MEDICATIONS Medication Instructions Dosage Frequency Start Date End Date Duration S tatus Viibryd 40 mg Orally Once a day 1 tablet with food 24h May, Active Vitamin D-3 1000 UNIT Orally Once a day 2 capsule 24h Active Lamictal 25 MG Orally Once a day 2 tablet 24h Jun, Active BusPIRone HCl 10 mg Orally Twice a day for anxiety 1 tablet 13 N 2016 Active Cetirizine HCl 10 mg Orally Once a day 1 tablet 24h Active Ketoconazole 2 % Externally Once a day 1 application to affected area 24 h Active Flovent HFA 110 mcg/act inhalation once per day 1-3 Puffs 1 time pe r day 14 May, 2013 0 Active Atenolol 100 mg 1 tablet Once a day Orally Active Zofran 8 MG Orally Once a day 1 tablet 24h A ctive Centrum - Active Lasix 20 mg Orally Once a day as needed for swelling 1 tablet Jul, Active Baclofen 10 mg Orally Three times a day 1/2 tablet 8h Active Trazodone HCl 50 mg Orally Once a day- bedtime 1 tablet Nov, Active Omeprazole 40 mg Orally Once a day 1 tablet 24h 45 d ays Active Montelukast Sodium 10 MG TAKE 1 TABLET BY MOUTH ONCE DAILY 90 Active Lisinopril 40 mg 1 tablet Once a day Orally Active Flonase 50 mcg/act nasally once per day 1 spray (50 mcg) in each nostril by intranasal route 2 times per day Nov, Active RESULTS No Results PROCEDURES No Known [...] 03/2016 Hospitalization History gastric sleeve Hospitalization History [facility] Trouble with left shoulder blade 08/2017
--- OUTSIDE RECORDS SUMMARY | 2019-11-29 09:47 | XMS REPORT ---
Author Author Curt TIRADO Organization [facility] Address Unknown Phone Unavailable Care Team Providers Care Maritime Guard Name Role Phone JOSHNO RON Unavailable Unavailable PROBLEMS Type Condition ICD9-CM Code [id number] Code Onset Dates Condition S tatus SNOMED Code Problem Recurrent major depressive disorder, in partial remission F33.41 Active 49932993 Problem Metabolic syndrome E88.81 Active 2 94777700 Problem Acute bacterial conjunctivitis of left eye H10.32 Active 767472505 Problem DANIELA (generalized anxiety disorder) F41.1 Active 90859188 Problem BMI 45.0-49.9, adult Z68.42 Active 652953285 Problem Anxiety F41.9 Active 89816305 Problem Severe episode of recurrent major depressive disorder, without psychotic features F33.2 Active 05905684 Problem Mixed obsessional thoughts and acts F42.2 Active 57653944 Problem Vitamin D deficiency E55.9 Active 27460106 Problem Insomnia G47.00 Active 636922007 Problem Major depression F32.9 Active 370 112275 Problem Hyperlipemia E78.5 Active 4945613 4 Problem Benign essential hypertension I10 Active 5234927 Problem Renal insufficiency N28.9 Active 950158245 Problem Morbid obesity E66.01 Active 93401 6002 Problem Edema R60.9 Active 103153619 Problem Type II diabetes mellitus E11.9 Acti ve 89447291 Problem Callus of foot L84 Active 00128 1005 ALLERGIES No Information ENCOUNTERS Encounter Location Date Diagnosis [facility] [address] [facility] [place] [id number] [address] [place] [phone] Nov, [facility] [address] [id number], [place] [id number] October, [facility] [address] [address] [id number], [place] [id number] October, [facility] [address] [facility] [place] [id number] [address] [place] [phone] October, BMI 45.0-49.9, adult Z68.42 ; Mixed obsessional thoughts and acts F42.2 ; Recurrent major depressive disorder, in partial remission F33.41 and DANIELA (generalized anxiety disorder) F41.1 [facility] [address] [place] [address] AVE [id number], [place] [id number] October, Benign essential hypertension I10 ; Morb id obesity E66.01 and BMI 45.0-49.9, adult Z68.42 [facility] [address] [id number], [place] [id number] Sep, [facility] [id number] [place] [address] [id number] Sep, [facility] [address] [id number], [place] [id number] Sep, [facility] [address] [id number] [place] [address] [id number] Sep, Hospital discharge follow-up Z09 ; Aller gic rhinitis, unspecified seasonality, unspecified trigger J30.9 and Shortness of breath R06.02 [facility] [id number] [place] [address] [id number] Sep, Recurrent major depressive disorder, in partial remission F33.41 [facility] [address] [id number], [place] [id number] Aug, Irritable mood R45.4 [place] [address] [place] [phone] Aug, [facility] [address] [id number], [place] [id number] Jul, Benign essential hypertension I10 ; Robert a R60.9 and Impacted cerumen of left ear H61.22 [facility] [address] [place] [id number] [address] [place] [phone] 14 Jul, 2017 Major depression F32.9 ; Rec urrent major depressive disorder, in partial remission F33.41 and Anxiety F41.9 [place] [id number] [facility] [place] [id number] [address] [place] [phone] Jun, Major depression F32.9 ; Rec urrent major depressive disorder, in partial remission F33.41 and Anxiety F41.9 [facility] [address] [id number], [place] [id number] Jun, Major depression F32.9 ; Morbid obesity E66.01 ; Irritable mood R45.4 ; Hand weakness R29.898 and Vitamin D deficiency E55.9 [facility] [address] [id number], [place] [id number] Jun, [facility] [id number] [place] [address] [id number] May, Major depression F32.9 [place] [address] [facility] [place] [id number] [address] [place] [phone] May, Major depression F32.9 [facility] [address] [id number], [place] [id number] May, BMI 50.0-59.9, adult Z68.43 ; Major depr ession F32.9 ; Anxiety F41.9 ; Hypertrophic toenail L60.2 and Pain of left great toe M79.[address] [place] [id number] [place] [address] [id number] May, Recurrent major depressive disorder, in partial remission F33.41 [place] [address] [facility] [place] [id number] [address] [place] [id number] Apr, [facility] [address] [id number], [place] [id number] Apr, [place] [address] [facility] [place] [id number] [address] [place] [phone] Apr, Major depression F32.9 [facility] [address] [id number], [place] [id number] Apr, Severe episode of recurrent major depres sive disorder, without psychotic features F33.2 ; Anxiety F41.9 and Insomnia G47.00 [facility] [address] [id number], [place] [id number] Apr, [facility] [address] [facility] [place] [id number] [address] [place] [phone] Apr, [facility] [address] [id number], [place] [id number] Apr, [facility] [id number] [place] [address] [id number] Mar, [place] [id number] [place] [address] [id number] Mar, Allergic conjunctivitis of both eyes H10 .13 [facility] [address] [facility] [place] [id number] [address] [place] [phone] Mar, Major depression F32.[address] [place] [id number] [place] [address] [id number] Mar, Metabolic syndrome E88.81 ; History of g astric bypass Z98.890 ; Benign essential hypertension I10 and Allergic conjunctivitis of both eyes H10.13 [facility] [address] [facility] [place] [id number] [address] [place] [phone] Mar, Major depression F32.9 [facility] [address] [facility] [address] [id number] [place] [address] [id number] Feb, [facility] [address] [facility] [place] [id number] [address] [place] [phone] Feb, Major depression F32.9 [facility] [id number] [place] [address] [id number] Feb, Subacute maxillary sinusitis J01.00 and Bronchitis J40 [facility] [address] [facility] [place] [id number] [address] [place] [phone] 06 Feb, 2017 Major depressive disorder, r ecurrent, moderate F33.[address] [place] [id number] [place] [address] [id number] Jan, [facility] [address] [facility] [address] [id number], [place] [id number] Jan, Acute non-recurrent maxillary sinusitis J01.00 and Skin tag L91.8 [facility] [address] [id number], [place] [id number] Jan, Cough R05 and Sinus congestion R09.81 [facility] [address] [facility] [id number], [place] [id number] Jan, [facility] [address] [place] [address] AVE [id number], [place] [id number] Jan, Benign essential hypertension I10 ; Hist ory of gastric bypass Z98.890 and Nausea and vomiting in adult R11.2 [place] [address] [place] [id number] [address] [place] [phone] Jan, Major depressive disorder, r ecurrent, moderate F33.1 [place] [address] [place] [id number] 12 Dec, 2016 Insomnia G47.00 ; Recurrent major depressive disorder, in partial remission F33.41 and Morbid obesity E66.01 [facility] [facility] [address] [id number], [place] [id number] Dec, [facility] [address] [place] [address] AVE [id number], [place] [id number] Dec, Chronic bacterial conjunctivitis of left eye H10.402 [facility] [address] [facility] [id number], [place] [id number] Nov, [facility] [address] [place] [address] AVE [id number], [place] [id number] Nov, Dental examination Z01.20 [facility] [address] [id number], [place] [id number] Nov, Benign essential hypertension I10 ; Hist ory of gastric bypass Z98.890 and Nausea and vomiting in adult R11.2 [place] [address] [facility] [place] [id number] [address] [place] [id number] 13 Nov, 2016 Major depressive disorder, r ecurrent, moderate F33.1 ; Generalized anxiety disorder F41.1 and Insomnia due to other mental disorder F51.05 [place] [address] [facility] [place] [id number] [address] [place] [phone] Nov, Recurrent major depressive d isorder, in partial remission F33.41 ; Insomnia G47.00 and Morbid obesity E66.01 [facility] [address] [id number] [place] S [id number] October, Abscess of left arm L02.[address] [id number] [address] [place] [phone] October, Morbid obesity E66.01 ; Lida r depression F32.9 and Recurrent major depressive disorder, in partial remission F33.[address] [place] [id number] [place] [address] [id number] Sep, Benign essential hypertension I10 ; Morb id obesity E66.01 ; S/P gastric bypass Z98.84 ; Abscess L02.91 and Chronic bacterial conjunctivitis of left eye H10.[id number] [place] [address] [id number] Sep, Dental examination Z01.[address] [id number] [address] [place] [phone] Sep, Morbid obesity E66.01 ; Lida r depression F32.9 and Recurrent major depressive disorder, in partial remission F33.41 [place] [address] [facility] [place] [id number] [address] [place] [phone] Jul, [place] [id number] [address] [place] [phone] Jul, Major depressive disorder, r ecurrent, moderate F33.1 [place] [address] [place] [id number] [address] [place] [phone] Jul, Major depressive disorder, r ecurrent, moderate F33.1 and Generalized anxiety disorder F41.1 [facility] [address] [facility] [id number], [place] [id number] Jul, Cough R05 [facility] [address] [facility] [place] [id number] [address] [place] [phone] Jul, Morbid obesity E66.01 ; Lida r depression F32.9 and Recurrent major depressive disorder, in partial remission F33.[address] [place] [id number] [place] [address] [id number] Jul, [id number] [place] [address] [id number] Jul, [address] [id number] [place] [address] [id number] Jul, Gastroenteritis K52.9 and Cough R05 [address] [id number] [place] [address] [id number] Jun, Acute bacterial conjunctivitis of left e ye H10.32 [facility] [address] [facility] [place] [id number] [address] [place] [id number] Jun, [place] [address] [place] [id number] [address] [place] [phone] Jun, Recurrent major depressive d isorder, in partial remission F33.41 [facility] [address] [place] [id number] [address] [place] [phone] May, Major depression F32.9 and M orbid obesity E66.01 [facility] [address] [facility] [place] [id number] [address] [place] [phone] May, [facility] [address] [facility] [address] [id number] [place] [address] [id number] May, Thrush B37.0 [facility] [address] [facility] [place] [id number] [address] [place] [phone] Apr, Major depressive disorder, r ecurrent, moderate F33.1 [facility] [address] [facility] [place] [id number] [address] [place] [id number] 15 Apr, 2016 Insomnia G47.00 ; Major depr ession F32.9 and Recurrent major depressive disorder, in partial remission F33.41 [facility] [address] [facility] [place] [id number] [address] [place] [id number] 11 Apr, 2016 [facility] [address] [facility] [place] [id number] [address] [place] [phone] 02 Apr, 2016 Major depression F32.9 and R ecurrent major depressive disorder, in partial remission F33.41 [facility] [address] [id number], [place] [id number] Mar, Benign essential hypertension I10 ; Morb id obesity E66.01 ; Impacted cerumen of both ears H61.23 ; Laceration of finger of right hand, initial encounter S61.219A and Encounter for immunization Z23 [facility] [address] [facility] [place] [id number] [address] [place] [phone] 17 Mar, 2016 [facility] [address] [facility] [place] [id number] [address] [place] [id number] Mar, [place] [address] [facility] [place] [id number] [address] [place] [id number] Mar, [facility] [address] [id number], [place] [id number] Feb, Nausea R11.0 ; Blood in the stool K92.1 and Benign essential hypertension I10 [facility] [address] [facility] [place] [id number] [address] [place] [phone] Feb, Major depression F32.9 and R ecurrent major depressive disorder, in partial remission F33.41 [facility] [address] [id number], [place] [id number] Feb, [facility] [address] [id number], [place] [id number] Feb, Recurrent major depressive disorder, in partial remission F33.41 [facility] [address] [id number], [place] [id number] Jan, [facility] [address] [id number], [place] [id number] Jan, Benign essential hypertension I10 ; Robert a R60.9 and Hyperlipidemia, unspecified hyperlipidemia type E78.[address] [facility] [address] [id number], [place] [id number] Jan, Recurrent major depressive disorder, in partial remission F33.41 [facility] [address] [id number] [place] [id number] Jan, [facility] [address] [id number], [place] [id number] Jan, [facility] [address] [id number], [place] [id number] Jan, [facility] [address] [facility] [place] [id number] [address] [place] [phone] Jan, [facility] [address] [facility] [place] [id number] [address] [place] [phone] Dec, [facility] [address] [facility] [place] [id number] [address] [place] [phone] Nov, [facility] [address] [facility] [place] [id number] [address] [place] [phone] Nov, Major depression F32.9 [facility] [address] [facility] [place] [id number] [address] [place] [phone] Nov, [facility] [address] [facility] [place] [id number] [address] [place] [phone] Nov, [facility] [address] [facility] [place] [id number] [address] [place] [phone] Nov, Major depressive disorder, r ecurrent episode, mild F33.0 and Anxiety F41.9 [facility] [address] [id number], [place] [id number] Nov, [facility] [address] [id number], [place] [id number] October, Left elbow pain M25.522 and Other season al allergic rhinitis J30.[address] [id number], [place] [id number] October, [facility] [address] [facility] [place] [id number] [address] [place] [phone] October, Major depressive disorder, r ecurrent, moderate F33.1 [facility] [address] [facility] [id number] [address] [place] [phone] October, Major depression F32.9 [place] [address] [facility] [place] [id number] [address] [place] [phone] Sep, [place] or callus L84 and Onych omycosis B35.1 [place] [address] [facility] [id number] [address] [place] [phone] Sep, Major depressive disorder, r ecurrent, moderate F33.1 [facility] [address] [facility] [place] [id number] [address] [place] [phone] Sep, Major depression F32.9 [place] [address] [facility] [place] [id number] [address] [place] [phone] Sep, Moderate episode of recurren t major depressive disorder F33.[address] [id number], [place] [id number] Sep, Muscle strain T14.8 [facility] [address] [facility] [place] [id number] [address] [place] [phone] Aug, Major depression F32.9 [facility] [address] [facility] [place] [id number] [address] [place] [phone] Aug, Major depression F32.9 [facility] [address] [facility] [place] [id number] [address] [place] [id number] 24 Jul, 2015 Morbid obesity E66.01 and Ma cora depression F32.9 [facility] [address] [facility] [place] [id number] [address] [place] [phone] Jul, Depression, major, recurrent , moderate F33.1 [facility] [address] [id number], [place] [id number] Jul, [facility] [address] [facility] [id number] [address] [place] [id number] Jul, [facility] [address] [facility] [place] [id number] [address] [place] [phone] Jul, Major depression F32.9 and M orbid obesity E66.[id number] [place] [address] [id number] Jul, Type II diabetes mellitus E11.9 ; Callus of foot L84 ; Benign essential hypertension I10 and Renal insufficiency N28.9 [place] [address] [facility] [id number] [address] [place] [phone] Jul, Depression, major, recurrent , moderate F33.1 [facility] [address] [facility] [id number] [address] [place] [phone] Jul, Major depression F32.9 [place] [address] [facility] [id number] [address] [place] [phone] Jul, [facility] [address] [facility] [id number] [address] [place] [phone] Jun, Major depression F32.9 [facility] [address] [facility] [place] [id number] [address] [place] [phone] Jun, Major depressive disorder, r ecurrent, moderate F33.1 [facility] [address] [facility] [id number] [address] [place] [phone] Jun, [facility] [address] [facility] [id number] [address] [place] [phone] Jun, Major depressive disorder, r ecurrent, moderate F33.1 and Major depression F32.[address] [id number], [place] [id number] Jun, Type II diabetes mellitus E11.9 [place] [address] [place] [id number] [address] [place], [place] [address] Jun, Depression, major, recurrent , moderate F33.1 [place] [address] [facility] [id number] [address] [place] [phone] May, Major depressive disorder, r ecurrent, moderate F33.1 [place] [address] [place] [id number] [address] [place] [phone] May, [id number] [place] [address] [id number] May, Edema R60.9 [place] [address] [place] [id number] [address] [place] [phone] May, Insomnia G47.00 and Major de pression F32.[address] [id number], [place] [id number] May, Morbid obesity E66.01 ; Edema R60.9 ; Sh ortness of breath R06.02 ; Benign essential hypertension I10 and Renal insufficiency N28.[address] [id number], [place] [id number] May, Hyperlipemia 272.4 and Renal insufficien cy N28.9 [place] [address] [facility] [id number] [address] [place] [phone] Apr, Major depression F32.9 [place] [address] [facility] [id number] [address] [place] [phone] Apr, [place] [address] [place] [id number] [address] [place] [phone] Apr, Major depressive disorder, r ecurrent, moderate F33.[address] [id number], [place] [id number] Apr, Type II diabetes mellitus E11.9 ; Benign essential hypertension I10 ; Edema R60.9 and Renal insufficiency N28.9 [facility] [address] [facility] [id number] [address] [place] [phone] Mar, Major depressive disorder, r ecurrent, moderate F33.1 [facility] [address] [facility] [id number] [address] [place] [phone] Mar, [facility] [address] [place] [id number] [address] [place] [id number] Mar, Major depression F32.9 [facility] [id number] [place] [id number] Mar, Morbid obesity E66.01 ; Benign essential hypertension I10 and Type II diabetes mellitus E11.9 [place] [address] [facility] [place] [id number] [address] [place] [id number] Feb, Major depressive disorder, r ecurrent, moderate F33.1 [facility] [address] [place] [id number] [address] [place] [id number] Feb, Major depressive disorder, r ecurrent episode, in partial or unspecified remission 296.35 ; Anxiety state, unspecified 300.00 and Morbid obesity 278.01 [facility] [address] [place] [id number] [address] [place] [id number] Feb, [facility] [address] [id number] [id number] Feb, Vomiting 787.03 and Viral syndrome 079.9 [address] [place] [address] [facility] [place] [id number] [address] [place] [id number] 15 Feb, 2015 Major depression, recurrent 296.30 ; Generalized anxiety disorder 300.02 and No condition on [place] II V71.09 [facility] [address] [id number] [id number] Feb, Skin tag 701.9 [place] [address] [facility] [place] [id number] [address] [place] [id number] Feb, [place] [address] [facility] [place] [id number] [address] [place] [address] Jan, Depression, major, recurrent , moderate 296.32 [facility] [address] [place] [address] AVE [id number] [id number] Jan, Nausea and vomiting 787.01 ; Rib pain on right side 786.50 and Fall on or from sidewalk curb E880.1 [facility] [address] [place] [id number] [address] [place] [address] Jan, [facility] [address] [id number] [address] [place] [address] Jan, Major depressive disorder, r ecurrent episode, in partial or unspecified remission 296.35 and Anxiety state, unspecified 300.[address] [id number] [id number] Jan, [facility] [address] [place] [address] [id number] [address] [place] [address] Jan, Depression, major, recurrent , moderate 296.32 [facility] [address] [place], [place] [id number] [address] [place] [address] Jan, Major depression, recurrent 296.30 ; No condition on [place] II V71.09 and No condition on axis III V71.[address] [id number][place] [id number] Jan, Drug-induced nausea and vomiting 787.01 [facility] [address] [place] [id number] [address] [place] [address] Jan, Depression, major, recurrent , moderate 296.[address] [id number] [address] [place] [address] Dec, Depression, major, recurrent , moderate 296.[address] [id number] [id number] Dec, Morbid obesity 278.01 ; Metabolic syndro me 277.7 ; Hyperlipemia 272.4 ; Benign essential hypertension 401.1 ; Dietary counseling V65.3 ; Exercise counseling V65.41 and Inflamed skin tag 701.9 [place] [address] [place] [id number] Dec, Depression, major, recurrent , moderate 296.32 [place] [address] [address] Dec, [place] [address] [address] Dec, Major depression, recurrent 296.30 ; Anxiety, generalized 300.02 and No condition on [place] II V71.[address] [address] Dec, Depression, major, recurrent , moderate 296.32 [place] [address] [address] Dec, Major depressive disorder, r ecurrent episode, moderate 296.32 [place] [address] [address] Dec, Depression, major, recurrent , moderate 296.32 [place] [address] [address] Dec, Depression, major, recurrent , moderate 296.32 [place] [address] [address] Dec, Depression, major, recurrent , moderate 296.32 [place] [address] [address] Dec, Depression, major, recurrent , moderate 296.32 [place] [id number] Nov, Depression, major, recurrent , moderate 296.32 [place] [address] [address] Nov, Major depression 296.20 ; So cial phobia 300.23 and No condition on [place] II V71.09 [facility] [address] [id number] [address] [place] [address] 16 Nov, 2014 Depression, major, recurrent , moderate 296.32 [facility] [address] [facility] [place] [id number] [address] [place] [address] 09 Nov, 2014 Major depressive disorder, r ecurrent episode, moderate 296.32 and Generalized anxiety disorder 300.02 [facility] [address] [facility] [place] [id number] [address] [place] [address] 09 Nov, 2014 Depression, major, recurrent , moderate 296.32 [facility] [address] [facility] [place] [id number] [address] [place] [address] 04 Nov, 2014 Depression, major, recurrent , moderate 296.32 [facility] [address] [place] [id number] [address] [place] [address] October, Generalized anxiety disorder 300.02 ; No condition on [place] II V71.09 and Major depressive disorder, recurrent 296.30 [facility] [address] [facility] [place] [id number] [address] [place] [address] 14 Sep, 2014 [facility] [address] [facility] [place] [id number] [address] [place] [address] Sep, [facility] [address] [facility] [place] [id number] [address] [place] [phone] 24 Aug, 2014 [facility] [address] [facility] [place] [id number] [address] [place] [address] 24 Aug, 2014 [facility] [address] [facility] [place] [id number] [address] [place] [address] Aug, [facility] [address] [facility] [place] [id number] [address] [place] [address] Aug, [facility] [address] [facility] [place] [id number] [address] [place] [address] Aug, [facility] [address] [facility] [place] [id number] [address] [place] [address] Aug, [facility] [address] [id number] [address] [place] [address], [place] [address] 20 Aug, 2014 [facility] [address] [id number] [address] [place] [address], [place] [address] 20 Aug, 2014 [facility] [address] [id number] [address] [place] [address], [place] [address] 13 Aug, 2014 [facility] [address] [id number] [address] [place] [address], [place] [address] 13 Aug, 2014 [facility] [address] [id number] [address] [place] [address], [place] [address] 13 Aug, 2014 [facility] [address] [id number] [address] [place] [address], [place] [address] 13 Aug, 2014 [facility] [address] [id number] [address] [place] [address], [place] [address] Aug, [facility] [address] [id number] [address] [place] [address], [place] [address] 12 Aug, 2014 [facility] [address] [id number] [address] [place] [address], [place] [address] 10 Aug, 2014 [facility] [address] [id number] [address] [place] [address], [place] [address] 10 Aug, 2014 [facility] [address] [id number] [address] [place] [address], [place] [address] Aug, [facility] [address] [id number] [address] [place] [address], [place] [address] Aug, [facility] [address] [id number] [address] [place] [address], [place] [address] 24 Jul, 2014 [facility] [address] [id number] [address] [place] [address], [place] [address] 24 Jul, 2014 [facility] [address] [id number] [address] [place] [address], [place] [address] 16 Jul, 2014 [facility] [address] [id number] [address] [place] [address], [place] [address] 16 Jul, 2014 [facility] [address] [id number] [address] [place] [address], [place] [address] Jul, [facility] [address] [id number] [address] [place] [address], [place] [address] Jul, [facility] [address] [id number] [address] [place] [address], [place] [address] Jun, [facility] [address] [id number] [address] [place] [address], [place] [address] Jun, [facility] [address] [id number] [address] [place] [address], [place] [address] Jun, [facility] [address] [id number] [address] [place] [address], [place] [address] Jun, [facility] [address] [id number] [address] [place] [address], [place] [address] Jun, [facility] [address] [id number] [address] [place] [address], [place] [address] Jun, [facility] [address] [id number] [address] [place] [address], [place] [address] Jun, [facility] [address] [id number] [address] [place] [address] Jun, [facility] [address] [id number] [address] [place] [address] Jun, [facility] [address] [id number] [address] [place] [address] Jun, [facility] [address] [id number] [address] [place] [address] Jun, [facility] [address] [id number] [address] [place] [address], [place] [address] Jun, [facility] [address] [id number] [place] [id number] Jun, [facility] [address] [id number] [address] [place] [address], [place] [address] Jun, [facility] [address] [id number] [address] [place] [address], [place] [address] Jun, [facility] [address] [id number] [address] [place] [address], [place] [address] Jun, [facility] [address] [id number] [address] [place] [address], [place] [address] May, [facility] [address] [id number] [address] [place] [address], [place] [address] May, [facility] [address] [id number] [address] [place] [address], [place] [address] May, [facility] [address] [id number] [address] [place] [address], [place] [address] May, [facility] [address] [id number] [address] [place] [address], [place] [address] Apr, [facility] [address] [id number] [address] [place] [address], [place] [address] Apr, [facility] [address] [id number] [address] [place] [address], [place] [address] Apr, [facility] [address] [id number] [address] [place] [address], [place] [address] Apr, [facility] [address] [id number] [address] [place] [address], [place] [address] Apr, [facility] [address] [id number] [address] [place] [address], [place] [address] Apr, [facility] [address] [id number] [address] [place] [address], [place] [address] Apr, [facility] [address] [id number] [address] [place] [address], [place] [address] Apr, [facility] [address] [id number] [address] [place] [address] [address] Apr, [facility] [address] [id number] [address] [place] [address], [place] [address] Apr, [facility] [address] [id number] [address] [place] [address], [place] [address] Apr, [facility] [address] [id number] [address] [place] [address], [place] [address] Apr, [facility] [address] [id number] [address] [place] [address], [place] [address] Apr, [facility] [address] [id number] [address] [place] [address], [place] [address] Apr, [facility] [address] [id number] [address] [place] [address], [place] [address] Apr, [facility] [address] [id number] [address] [place] [address], [place] [address] Apr, [facility] [address] [id number] [address] [place] [address], [place] [address] Apr, [facility] [address] [id number] [address] [place] [address], [place] [address] Apr, [facility] [address] [id number] [address] [place] [address], [place] [address] Apr, [facility] [address] [id number] [address] [place] [address] Apr, [facility] [address] [id number] [address] [place] [address] Mar, [facility] [address] [id number] [address] [place] [address], [place] [address] Mar, [facility] [address] [id number] [address] [place] [address] Mar, [facility] [address] [id number] [address] [place] [address] Mar, [facility] [address] [id number] [address] [place] [address], [place] [address] Mar, [facility] [address] [id number] [address] [place] [address], [place] [address] Mar, [facility] [address] [id number] [address] [place] [address], [place] [address] Mar, [facility] [address] [id number] [address] [place] [address], [place] [address] Mar, [facility] [address] [id number] [address] [place] [address], [place] [address] Mar, [facility] [address] [id number] [address] [place] [address], [place] [address] Mar, [facility] [address] [id number] [address] [place] [address], [place] [address] Feb, [facility] [address] [id number] [address] [place] [address], [place] [address] Feb, [facility] [address] [id number] [address] [place] [address], [place] [address] Feb, [facility] [address] [id number] [address] [place] [address], [place] [address] Feb, [facility] [address] [id number] [address] [place] [address], [place] [address] Jan, [facility] [address] [id number] [address] [place] [address], [place] [address] Jan, [facility] [address] [id number] [address] [place] [address], [place] [address] Jan, [facility] [address] [id number] [address] [place] [address], [place] [address] Jan, [facility] [address] [id number] [address] [place] [address], [place] [address] Jan, [facility] [address] [id number] [address] [place] [address], [place] [address] Jan, [facility] [address] [id number] [facility] [place] [address] Dec, [facility] [address] [id number] [address] [place] [address], [place] [address] Dec, [facility] [address] [id number] [address] [place] [address], [place] [address] Nov, [facility] [address] [id number] [address] [place] [address], [place] [address] Nov, [facility] [address] [id number] [address] [place] [address], [place] [address] Nov, [facility] [address] [id number] [address] [place] [address], [place] [address] Nov, [facility] [address] [id number] [address] [place] [address], [place] [address] Nov, [facility] [address] [id number] [address] [place] [address], [place] [address] Nov, [facility] [address] [id number] [address] [place] [address], [place] [address] Sep, [facility] [address] [id number] [address] [place] [address], [place] [address] Sep, [facility] [address] [id number] [address] [place] [address], [place] [address] Sep, [facility] [address] [id number] [address] [place] [address], [place] [address] Sep, [facility] [address] [id number] [address] [place] [address], [place] [address] Aug, [facility] [address] [id number] [address] [place] [address], [place] [address] Aug, [facility] [address] [id number] [address] [place] [address], [place] [address] Jul, [facility] [address] [id number] [address] [place] [address] 14 Jul, 2013 [facility] [address] [id number] [address] [place] [address], [place] [address] Jun, [facility] [address] [id number] [address] [place] [address], [place] [address] Jun, [facility] [address] [id number] [address] [place] [address], [place] [address] Jun, [facility] [address] [id number] [address] [place] [address], [place] [address] Jun, [facility] [address] [id number] [address] [place] [address], [place] [address] May, [facility] [address] [id number] [address] [place] [address], [place] [address] May, [facility] [address] [id number] [address] [place] [address], [place] [address] May, [facility] [address] [id number] [address] [place] [address], [place] [address] May, [facility] [address] [id number] [address] [place] [address], [place] [address] May, [facility] [address] [id number] [address] [place] [address], [place] [address] May, [facility] [address] [id number] [address] [place] [address], [place] [address] Apr, [facility] [address] [id number] [address] [place] [address] Apr, [facility] [address] [id number] [address] [place] [address], [place] [address] Apr, [facility] [address] [id number] [address] [place] [address], [place] [address] Apr, [facility] [address] [id number] [address] [place] [address], [place] [address] Mar, [facility] [address] [id number] [address] [place] [address], [place] [address] Mar, [facility] [address] [id number] [address] [place] [address], [place] [address] Mar, [facility] [address] [id number] [address] [place] [address], [place] [address] Mar, [facility] [address] [id number] [address] [place] [address], [place] [address] Feb, [facility] [address] [id number] [place] [id number] Jan, [facility] [address] [id number] [address] [place] [address], [place] [address] Jan, [facility] [address] [id number] [address] [place] [address], [place] [address] Dec, [facility] [address] [id number] [address] [place] [address], [place] [address] Dec, [facility] [address] [id number] [address] [place] [address], [place] [address] Dec, [facility] [address] [facility] [id number] [place] [id number] Dec, [facility] [address] [id number] [address] [place] [address], [place] [address] Nov, [facility] [address] [id number] [address] [place] [address], [place] [address] 14 Nov, 2012 [facility] [address] [id number] [address] [place] [address], [place] [address] Nov, [facility] [address] [id number] [address] [place] [address], [place] [address] Nov, [facility] [address] [id number] [address] [place] [address], [place] [address] Nov, [facility] [address] [id number] [address] [place] [address], [place] [address] October, [facility] [address] [facility] [place] [id number] [address] [place] [address] October, [facility] [address] [facility] [place] [id number] [address] [place] [address] Aug, [facility] [address] [facility] [place] [id number] [address] [place] [address] Nov, IMMUNIZATIONS No Known Immunizations SOCIAL HISTORY Never Assessed REASON FOR VISIT f/u PLAN OF CARE Activity Details Follow Up Next available Reason: VITAL SIGNS MEDICATIONS Unknown Medications RESULTS No Results PROCEDURES Procedure Date Ordered Result Body Site Psychotherapy, patient &/family, 30 minutes, established patient May 17, 2017 INSTRUCTIONS MEDICATIONS ADMINISTERED No Known Medications [...] 03/2016 Hospitalization History gastric sleeve Hospitalization History [facility] Trouble with left shoulder blade 08/2017
--- OUTSIDE RECORDS SUMMARY | 2019-11-29 09:47 | XMS REPORT ---
Author Author Curt DIAZ [facility] Address [address] [place] [address] Care Team Providers Care Terminal Superintendent Name Role Phone JOE CHRIS Unavailable PROBLEMS Type Condition ICD9-CM Code UMN53-OX Code Onset Dates Condition S tatus SNOMED Code Problem Metabolic syndrome E88.81 Active 2 91773977 Problem Severe episode of recurrent major depressive disorder, without psychotic features F33.2 Active 47012168 Problem Anxiety F41.9 Active 92531489 Problem Depressive disorder, not elsewhere classified F32. 9 Active 26842946 Problem Sciatica, right side M54.31 Active [id number] Problem Mixed obsessional thoughts and acts F42.2 Active 79669831 Problem Vitamin D deficiency E55.9 Active 09209402 Problem DANIELA (generalized anxiety disorder) F41.1 Active 90137865 Problem BMI 45.0-49.9, adult Z68.42 Active 046002743 Problem Hyperlipemia E78.5 Active 1603365 4 Problem Major depression F32.9 Active 370 171559 Problem Insomnia G47.00 Active 413067335 Problem Renal insufficiency N28.9 Active 307973040 Problem Edema R60.9 Active 871220069 Problem Morbid obesity E66.01 Active 47813 6002 Problem Callus of foot L84 Active 26334 1005 Problem Benign essential hypertension I10 Active 3522504 Problem Recurrent major depressive disorder, in partial remission F33.41 Active 03264854 ALLERGIES No Information ENCOUNTERS Encounter Location Date Diagnosis [facility] [address] [facility] [id number] [address] [address] Jan, [facility] [address] [id number], [place] [id number] Jan, [facility] [address] [facility] [id number], [place] [id number] Jan, Benign essential hypertension I10 ; BMI 45.0-49.9, adult Z68.42 ; Metabolic syndrome E88.81 and Allergic rhinitis, unspecified seasonality, unspecified trigger J30.9 [facility] [address] [facility] [id number] [address] [place] [phone] Dec, DANIELA (generalized anxiety dis order) F41.1 and Depressive disorder, not elsewhere classified F32.9 [facility] [address] [id number] [place], [place] [id number] Dec, Recurrent major depressive disorder, in partial remission F33.41 [facility] [address] [id number] [place] [employer], [place] [phone] Dec, [facility] [address] [id number], [place] [id number] Nov, [facility] [address] [id number], [place] [id number] Nov, Recurrent major depressive disorder, in partial remission F33.41 [facility] [address] [facility] [id number] [address] [place] [phone] Nov, Recurrent major depressive d isorder, in partial remission F33.41 ; Mixed obsessional thoughts and acts F42.2 ; DANIELA (generalized anxiety disorder) F41.1 and BMI 45.0-49.9, adult Z68.42 [facility] [address] [id number], [place] [id number] Nov, [facility] [address] [id number] [place] [employer], [place] [id number] Nov, Other conjunctivitis of both eyes H10.89 and Sciatica, right side M54.31 [facility] [address] [id number] [place] [employer], [place] [id number] Nov, [facility] [address] [id number] [place] [id number] Nov, [facility] [address] [id number] [place] [employer], [place] [phone] October, [facility] [address] [id number], [place] [id number] October, [facility] [address] [facility] [id number] [address] [place] [phone] October, BMI 45.0-49.9, adult Z68.42 ; Mixed obsessional thoughts and acts F42.2 ; Recurrent major depressive disorder, in partial remission F33.41 and DANIELA (generalized anxiety disorder) F41.1 [facility] [address] [id number], [place] [id number] October, Benign essential hypertension I10 ; Morb id obesity E66.01 and BMI 45.0-49.9, adult Z68.42 [facility] [address] [id number], [place] [id number] Sep, [facility] [address] [id number], [place] [id number] Sep, [facility] [address] [id number], [place] [id number] Sep, [facility] [address] [id number], [place] [id number] Sep, Hospital discharge follow-up Z09 ; Aller gic rhinitis, unspecified seasonality, unspecified trigger J30.9 and Shortness of breath R06.02 [facility] [address] [id number], [place] [id number] Sep, Recurrent major depressive disorder, in partial remission F33.41 [facility] [address] [id number], [place] [id number] Aug, Irritable mood R45.4 [facility] [address] [facility] [id number] [address] [place] [phone] Aug, [facility] [address] [id number], [place] [id number] Jul, Benign essential hypertension I10 ; Robert a R60.9 and Impacted cerumen of left ear H61.22 [facility] [address] [facility] [id number] [address] [place] [phone] 14 Jul, 2017 Major depression F32.9 ; Rec urrent major depressive disorder, in partial remission F33.41 and Anxiety F41.9 [place] [address] [facility] [id number] [address] [place] [address] Jun, Major depression F32.9 ; Rec urrent major depressive disorder, in partial remission F33.41 and Anxiety F41.9 [facility] [address] [id number], [place] [id number] Jun, Major depression F32.9 ; Morbid obesity E66.01 ; Irritable mood R45.4 ; Hand weakness R29.898 and Vitamin D deficiency E55.[address] [place] [id number] [place] [id number] Jun, [facility] [id number] [place] [address] [id number] May, Major depression F32.9 [place] [address] [facility] [id number] [address] [place] [phone] May, Major depression F32.9 [facility] [id number] [place] [address] [id number] May, BMI 50.0-59.9, adult Z68.43 ; Major depr ession F32.9 ; Anxiety F41.9 ; Hypertrophic toenail L60.2 and Pain of left great toe M79.675 [facility] [address] [id number], [place] [id number] May, Recurrent major depressive disorder, in partial remission F33.41 [place] [address] [facility] [id number] [address] [place] [address] Apr, [place] [address] [id number], [place] [id number] Apr, [place] [address] [facility] [id number] [address] [place] [phone] Apr, Major depression F32.9 [facility] [address] [id number], [place] [id number] Apr, Severe episode of recurrent major depres sive disorder, without psychotic features F33.2 ; Anxiety F41.9 and Insomnia G47.00 [facility] [address] [id number], [place] [id number] Apr, [facility] [address] [facility] [id number] [address] [place] [phone] Apr, [facility] [id number] [place] [address] [id number] Apr, [facility] [address] [id number], [place] [id number] Mar, [facility] [id number] [place] [address] [id number] Mar, Allergic conjunctivitis of both eyes H10 .13 [facility] [address] [facility] [id number] [address] [place] [phone] Mar, Major depression F32.9 [facility] [address] [id number], [place] [id number] Mar, Metabolic syndrome E88.81 ; History of g astric bypass Z98.890 ; Benign essential hypertension I10 and Allergic conjunctivitis of both eyes H10.13 [facility] [address] [facility] [id number] [address] [place] [phone] Mar, Major depression F32.9 [facility] [address] [id number], [place] [id number] Feb, [facility] [address] [facility] [id number] [address] [place] [phone] Feb, Major depression F32.9 [facility] [id number] [place] [address] [id number] Feb, Subacute maxillary sinusitis J01.00 and Bronchitis J40 [facility] [address] [facility] [id number] [address] [place] [address] Feb, Major depressive disorder, r ecurrent, moderate F33.1 [facility] [address] [id number], [place] [id number] Jan, [facility] [place] [address] [facility] [address] [id number], [place] [id number] Jan, Acute non-recurrent maxillary sinusitis J01.00 and Skin tag L91.8 [facility] [place] [address] [id number], [place] [id number] Jan, Cough R05 and Sinus congestion R09.81 [facility] [place] [address] [id number], [place] [id number] Jan, [facility] [address] [id number], [place] [id number] Jan, Benign essential hypertension I10 ; Hist ory of gastric bypass Z98.890 and Nausea and vomiting in adult R11.2 [facility] [address] [facility] [id number] [address] [place] [phone] Jan, Major depressive disorder, r ecurrent, moderate F33.1 [facility] [address] [facility] [id number] [address] [place] [address] Dec, Insomnia G47.00 ; Recurrent major depressive disorder, in partial remission F33.41 and Morbid obesity E66.01 [facility] [address] [id number], [place] [id number] Dec, [facility] [address] [id number], [place] [id number] Dec, Chronic bacterial conjunctivitis of left eye H10.402 [facility] [address] [id number], [place] [id number] Nov, [facility] [place] [address] [facility] [address] [id number], [place] [id number] Nov, Dental examination Z01.20 [place] [address] [facility] [address] [id number], [place] [id number] 23 Nov, 2016 Benign essential hypertension I10 ; Hist ory of gastric bypass Z98.890 and Nausea and vomiting in adult R11.2 [place] [address] [facility] [id number] [address] [place] [phone] 13 Nov, 2016 Major depressive disorder, r ecurrent, moderate F33.1 ; Generalized anxiety disorder F41.1 and Insomnia due to other mental disorder F51.05 [place] [address] [facility] [id number] [address] [place] [phone] 12 Nov, 2016 Recurrent major depressive d isorder, in partial remission F33.41 ; Insomnia G47.00 and Morbid obesity E66.01 [facility] [address] [id number] [place] [id number] October, Abscess of left arm L02.[address] [id number] [address] [place] [address] October, Morbid obesity E66.01 ; Lida r depression F32.9 and Recurrent major depressive disorder, in partial remission F33.[address] [id number], [place] [id number] Sep, Benign essential hypertension I10 ; Morb id obesity E66.01 ; S/P gastric bypass Z98.84 ; Abscess L02.91 and Chronic bacterial conjunctivitis of left eye H10.[address] [id number], [place] [id number] Sep, Dental examination Z01.20 [place] [address] [facility] [id number] [address] [place] [phone] Sep, Morbid obesity E66.01 ; Lida r depression F32.9 and Recurrent major depressive disorder, in partial remission F33.41 [place] [address] [facility] [id number] [address] [place] [phone] Jul, [place] [address] [facility] [id number] [address] [place] [phone] Jul, Major depressive disorder, r ecurrent, moderate F33.1 [place] [address] [place] [id number] [address] [place] [address] Jul, Major depressive disorder, r ecurrent, moderate F33.1 and Generalized anxiety disorder F41.[address] [place] [id number] [place] [address] [id number] Jul, Cough R05 [place] [address] [place] [id number] [address] [place] [address] Jul, Morbid obesity E66.01 ; Lida r depression F32.9 and Recurrent major depressive disorder, in partial remission F33.[address] [place] [id number] [place] [address] [id number] Jul, [place] [id number] [place] [address] [id number] Jul, [place] [id number] [place] [address] [id number] Jul, Gastroenteritis K52.9 and Cough R[address] [id number] [place] [address] [id number] Jun, Acute bacterial conjunctivitis of left e ye H10.32 [place] [address] [place] [id number] [address] [place] [address] Jun, [place] [address] [place] [id number] [address] [place] [address] Jun, Recurrent major depressive d isorder, in partial remission F33.41 [place] [address] [place] [id number] [address] [place] [address] May, Major depression F32.9 and M orbid obesity E66.01 [place] [address] [place] [id number] [address] [place] [phone] May, [place] [id number] [place] [address] [id number] May, Thrush B37.0 [place] [address] [facility] [id number] [address] [place] [phone] 15 Apr, 2016 Major depressive disorder, r ecurrent, moderate F33.1 [place] [address] [facility] [id number] [address] [place] [phone] 15 Apr, 2016 Insomnia G47.00 ; Major depr ession F32.9 and Recurrent major depressive disorder, in partial remission F33.41 [place] [address] [facility] [id number] [address] [place] [phone] Apr, [place] [address] [facility] [id number] [address] [place] [phone] 02 Apr, 2016 Major depression F32.9 and R ecurrent major depressive disorder, in partial remission F33.[address] [place] [address] [id number], [place] [id number] Mar, Benign essential hypertension I10 ; Morb id obesity E66.01 ; Impacted cerumen of both ears H61.23 ; Laceration of finger of right hand, initial encounter S61.219A and Encounter for immunization Z23 [place] [address] [facility] [id number] [address] [place] [address] 17 Mar, 2016 [place] [address] [facility] [id number] [address] [place] [phone] Mar, [place] [address] [facility] [id number] [address] [place] [phone] Mar, [place] [address] [id number] [place] [address] [id number] 29 Feb, 2016 Nausea R11.0 ; Blood in the stool K92.1 and Benign essential hypertension I10 [facility] [address] [facility] [id number] [address] [place] [phone] Feb, Major depression F32.9 and R ecurrent major depressive disorder, in partial remission F33.[address] [place] [id number] [place] [address] [place] [id number] Feb, [facility] [address] [id number], [place] [id number] Feb, Recurrent major depressive disorder, in partial remission F33.41 [facility] [address] [id number], [place] [id number] Jan, [facility] [address] [id number], [place] [id number] Jan, Benign essential hypertension I10 ; Robert a R60.9 and Hyperlipidemia, unspecified hyperlipidemia type E78.5 [facility] [address] [id number], [place] [id number] Jan, Recurrent major depressive disorder, in partial remission F33.41 [facility] [address] [id number] [place] [id number] Jan, [facility] [address] [id number], [place] [id number] Jan, [facility] [address] [id number], [place] [id number] Jan, [facility] [address] [facility] [id number] [address] [place] [phone] Jan, [facility] [address] [facility] [id number] [address] [place] [phone] Dec, [facility] [address] [facility] [id number] [address] [place] [phone] Nov, [facility] [address] [facility] [id number] [address] [place] [phone] Nov, Major depression F32.9 [facility] [address] [facility] [id number] [address] [place] [phone] Nov, [facility] [address] [facility] [id number] [address] [place] [phone] Nov, [facility] [address] [facility] [id number] [address] [place] [phone] Nov, Major depressive disorder, r ecurrent episode, mild F33.0 and Anxiety F41.[address] [id number] [place] [address] [id number] Nov, [address] [id number] [place] [address] [id number] October, Left elbow pain M25.522 and Other season al allergic rhinitis J30.[address] [id number] [place] [address] [id number] October, [place] [address] [facility] [id number] [address] [place] [phone] October, Major depressive disorder, r ecurrent, moderate F33.1 [place] [address] [facility] [id number] [address] [place] [address] October, Major depression F32.9 [place] [address] [facility] [id number] [address] [place] [phone] Sep, Anthony or callus L84 and Onych omycosis B35.1 [place] [address] [facility] [id number] [address] [place] [phone] Sep, Major depressive disorder, r ecurrent, moderate F33.1 [place] [address] [facility] [id number] [address] [place] [phone] Sep, Major depression F32.9 [place] [address] [facility] [id number] [address] [place] [address] Sep, Moderate episode of recurren t major depressive disorder F33.[address] [id number] [place] [address] [id number] Sep, Muscle strain T14.8 [facility] [address] [facility] [id number] [address] [place] [phone] Aug, Major depression F32.9 [place] [address] [facility] [id number] [address] [place] [phone] Aug, Major depression F32.9 [facility] [address] [facility] [id number] [address] [place] [phone] Jul, Morbid obesity E66.01 and Ma cora depression F32.9 [facility] [address] [facility] [id number] [address] [place] [address] Jul, Depression, major, recurrent , moderate F33.[address] [id number] [place] [address] [id number] Jul, [facility] [address] [facility] [id number] [address] [place] [phone] Jul, [facility] [address] [place] [id number] [place] [address] Jul, Major depression F32.9 and M orbid obesity E66.01 [address] [id number], [place] [id number] Jul, Type II diabetes mellitus E11.9 ; Callus of foot L84 ; Benign essential hypertension I10 and Renal insufficiency N28.9 [facility] [address] [place] [id number] [address] [place] [phone] Jul, Depression, major, recurrent , moderate F33.1 [facility] [id number] [place] [phone] Jul, Major depression F32.9 [facility] [address] [place] [id number] [address] [place] [phone] Jul, [facility] [address] [facility] [id number] [address] [place] [phone] Jun, Major depression F32.9 [facility] [address] [place] [id number] [address] [place] [phone] Jun, Major depressive disorder, r ecurrent, moderate F33.1 [facility] [address] [place] [id number] [address] [place] [phone] Jun, [place] [address] [facility] [id number] [address] [place] [phone] Jun, Major depressive disorder, r ecurrent, moderate F33.1 and Major depression F32.[id number] [place] [address] [id number] Jun, Type II diabetes mellitus E11.9 [place] [address] [place] [id number] [address] [place] [phone] Jun, Depression, major, recurrent , moderate F33.1 [place] [address] [facility] [id number] [address] [place] [phone] May, Major depressive disorder, r ecurrent, moderate F33.1 [place] [address] [address] [place] [id number] [address] [place] [id number] May, [address] [id number] [place] [address] [id number] May, Edema R60.9 [place] [address] [address] [place] [id number] [address] [place] [id number] May, Insomnia G47.00 and Major de pression F32.[address] [place] [id number] [place] [address] [id number] May, 2015 Morbid obesity E66.01 ; Edema R60.9 ; Sh ortness of breath R06.02 ; Benign essential hypertension I10 and Renal insufficiency N28.[address] [place] [id number] [place] [address] [id number] May, 2015 Hyperlipemia 272.4 and Renal insufficien cy N28.9 [place] [address] [id number] [place] [phone] Apr, Major depression F32.9 [place] [address] [address] [place] [id number] [address] [place] [phone] Apr, [place] [address] [address] [place] [id number] [address] [place] [phone] Apr, Major depressive disorder, r ecurrent, moderate F33.[address] [facility] [address] [id number] [id number] Apr, Type II diabetes mellitus E11.9 ; Benign essential hypertension I10 ; Edema R60.9 and Renal insufficiency N28.9 [place] [address] [address] [facility] [id number] [address] [place] [phone] Mar, Major depressive disorder, r ecurrent, moderate F33.1 [place] [address] [address] [facility] [id number] [address] [place] [phone] Mar, [place] [address] [address] [facility] [id number] [address] [place] [phone] Mar, Major depression F32.[address] [id number] [id number] Mar, Morbid obesity E66.01 ; Benign essential hypertension I10 and Type II diabetes mellitus E11.9 [place] [address] [address] [facility] [id number] [address] [place] [phone] Feb, Major depressive disorder, r ecurrent, moderate F33.1 [place] [address] [address] [place] [facility] [id number] [address] [place] [address] Feb, Major depressive disorder, r ecurrent episode, in partial or unspecified remission 296.35 ; Anxiety state, unspecified 300.00 and Morbid obesity 278.01 [place] [address] [address] [facility] [id number] [address] [place] [address] Feb, [facility] [address] [id number] [id number] 16 Feb, 2015 Vomiting 787.03 and Viral syndrome 079.9 9 [place] [address] [address] [facility] [id number] [address] [place] [id number] 15 Feb, 2015 Major depression, recurrent 296.30 ; Generalized anxiety disorder 300.02 and No condition on [place] II V71.09 [facility] [address] [id number] [id number] Feb, Skin tag 701.9 [facility] [address] [facility] [id number] [address] [place] [address] Feb, [facility] [address] [facility] [id number] [address] [place] [address] Jan, Depression, major, recurrent , moderate 296.32 [facility] [address] [facility] [id number] [id number] Jan, Nausea and vomiting 787.01 ; Rib pain on right side 786.50 and Fall on or from sidewalk curb E880.1 [facility] [address] [facility] [id number] [address] [place] [address] Jan, [facility] [address] [place] [id number] [address] [place] [address] Jan, Major depressive disorder, r ecurrent episode, in partial or unspecified remission 296.35 and Anxiety state, unspecified 300.00 [facility] [address] [facility] [id number] [id number] Jan, [facility] [address] [facility] [id number] [address] [place] [address] Jan, Depression, major, recurrent , moderate 296.32 [facility] [address] [facility] [id number] [address] [place] [address] Jan, Major depression, recurrent 296.30 ; No condition on [place] II V71.09 and No condition on axis III V71.09 [facility] [address] [place] [address] [id number] [id number] Jan, Drug-induced nausea and vomiting 787.01 [facility] [address] [place] [id number] [address] [place] [address] Jan, Depression, major, recurrent , moderate 296.32 [facility] [address] [place] [id number] [address] [place] [address] Dec, Depression, major, recurrent , moderate 296.32 [facility] [facility] [id number] [place] [address] [id number] Dec, Morbid obesity 278.01 ; Metabolic syndro me 277.7 ; Hyperlipemia 272.4 ; Benign essential hypertension 401.1 ; Dietary counseling V65.3 ; Exercise counseling V65.41 and Inflamed skin tag 701.[address] [address] Dec, Depression, major, recurrent , moderate 296.[address] [address] Dec, [address] [address] Dec, Major depression, recurrent 296.30 ; Anxiety, generalized 300.02 and No condition on [place] II V71.[address] [address] Dec, Depression, major, recurrent , moderate 296.[address] [address] Dec, Major depressive disorder, r ecurrent episode, moderate 296.32 [place] [id number] [address] [place] [address] Dec, Depression, major, recurrent , moderate 296.32 [place] [id number] [address] [place] [address] Dec, Depression, major, recurrent , moderate 296.[address] [address] Dec, Depression, major, recurrent , moderate 296.[address] [address] Dec, Depression, major, recurrent , moderate 296.[address] [address] 17 Nov, 2014 Depression, major, recurrent , moderate 296.32 [facility] [address] [facility] [id number] [address] [place] [address] 16 Nov, 2014 Major depression 296.20 ; So cial phobia 300.23 and No condition on [place] II V71.09 [facility] [address] [place] [id number] [address] [place] [address] 16 Nov, 2014 Depression, major, recurrent , moderate 296.32 [facility] [address] [place] [id number] [address] [place] [id number] 09 Nov, 2014 Major depressive disorder, r ecurrent episode, moderate 296.32 and Generalized anxiety disorder 300.02 [facility] [address] [place] [id number] [place] [address] 09 Nov, 2014 Depression, major, recurrent , moderate 296.32 [facility] [address] [place] [id number] [place] [address] 04 Nov, 2014 Depression, major, recurrent , moderate 296.32 [facility] [address] [place] [id number] [address] [place] [address] October, Generalized anxiety disorder 300.02 ; No condition on [place] II V71.09 and Major depressive disorder, recurrent 296.30 [facility] [address] [place] [id number] [address] [place] [address] 14 Sep, 2014 [facility] [address] [place] [id number] [address] [place] [address] Sep, [facility] [address] [place] [id number] [address] [place] [address] 24 Aug, 2014 [facility] [address] [place] [id number] [address] [place] [id number] Aug, [facility] [address] [place] [id number] [address] [place] [phone] Aug, [facility] [address] [place] [id number] [address] [place] [phone] Aug, [facility] [address] [id number] [facility] [place] [address] Aug, [facility] [address] [id number] [address] [place] [address], [place] [address] Aug, [facility] [address] [id number] [address] [place] [address], [place] [address] Aug, [facility] [address] [id number] [address] [place] [address], [place] [address] Aug, [facility] [address] [id number] [address] [place] [address], [place] [address] Aug, [facility] [address] [id number] [address] [place] [address], [place] [address] Aug, [facility] [address] [id number] [address] [place] [address], [place] [address] Aug, [facility] [address] [id number] [address] [place] [address], [place] [address] Aug, [facility] [address] [id number] [address] [place] [address], [place] [address] Aug, [facility] [address] [id number] [address] [place] [address], [place] [address] Aug, [facility] [address] [id number] [address] [place] [address], [place] [address] Aug, [facility] [address] [id number] [address] [place] [address], [place] [address] Aug, [facility] [address] [id number] [address] [place] [address], [place] [address] Aug, [facility] [address] [id number] [address] [place] [address], [place] [address] Aug, [facility] [address] [id number] [address] [place] [place] [address], [place] [address] 24 Jul, 2014 [facility] [address] [id number] [address] [place] [address], [place] [address] Jul, [facility] [address] [id number] [address] [place] [address], [place] [address] Jul, [facility] [address] [id number] [address] [place] [address], [place] [address] Jul, [facility] [address] [id number] [address] [place] [address], [place] [address] Jul, [facility] [address] [id number] [address] [place] [address], [place] [address] Jul, [facility] [address] [id number] [address] [place] [address], [place] [address] Jun, [facility] [address] [id number] [address] [place] [address], [place] [address] Jun, [facility] [address] [id number] [address] [place] [address], [place] [address] Jun, [facility] [address] [id number] [address] [place] [address] Jun, [facility] [address] [id number] [address] [place] [address], [place] [address] Jun, [facility] [address] [id number] [address] [place] [address], [place] [address] Jun, [facility] [address] [id number] [address] [place] [address], [place] [address] Jun, [facility] [address] [id number] [address] [place] [address] Jun, [facility] [address] [id number] [address] [place] [address] Jun, [facility] [address] [id number] [address] [place] [address] Jun, [facility] [address] [id number] [address] [place] [address] Jun, [facility] [address] [id number] [address] [place] [address], [place] [address] Jun, [facility] [address] [id number] [id number] Jun, [facility] [address] [id number] [address] [place] [address], [place] [address] Jun, [facility] [address] [id number] [address] [place] [address], [place] [address] Jun, [facility] [address] [id number] [address] [place] [address], [place] [address] Jun, [facility] [address] [id number] [address] [place] [address], [place] [address] May, [facility] [address] [id number] [address] [place] [address], [place] [address] May, [facility] [address] [id number] [address] [place] [address], [place] [address] May, [facility] [address] [id number] [address] [place] [address], [place] [address] May, [facility] [address] [id number] [address] [place] [address], [place] [address] Apr, [facility] [address] [id number] [address] [place] [address], [place] [address] Apr, [facility] [address] [id number] [address] [place] [address], [place] [address] Apr, [facility] [address] [id number] [address] [place] [address], [place] [address] Apr, [facility] [address] [id number] [address] [place] [address], [place] [address] Apr, [facility] [address] [id number] [address] [place] [address], [place] [address] Apr, [facility] [address] [id number] [address] [place] [address], [place] [address] Apr, [facility] [address] [id number] [address] [place] [address], [place] [address] Apr, [facility] [address] [id number] [address] [place] [address], [place] [address] Apr, [facility] [address] [id number] [address] [place] [address], [place] [address] Apr, [facility] [address] [id number] [address] [place] [address], [place] [address] Apr, [facility] [address] [id number] [address] [place] [address], [place] [address] Apr, [facility] [address] [id number] [address] [place] [address], [place] [address] Apr, [facility] [address] [id number] [address] [place] [address], [place] [address] Apr, [facility] [address] [id number] [address] [place] [address], [place] [address] Apr, [facility] [address] [id number] [address] [place] [address], [place] [address] Apr, [facility] [address] [id number] [address] [place] [address], [place] [address] Apr, [facility] [address] [id number] [address] [place] [address], [place] [address] Apr, [facility] [address] [id number] [address] [place] [address] Apr, [facility] [address] [id number] [address] [place] [address], [place] [address] Apr, [facility] [address] [id number] [address] [place] [address], [place] [address] Mar, [facility] [address] [id number] [address] [place] [address], [place] [address] Mar, [facility] [address] [id number] [address] [place] [address], [place] [address] Mar, [facility] [address] [id number] [address] [place] [address], [place] [address] Mar, [facility] [address] [id number] [address] [place] [address], [place] [address] Mar, [facility] [address] [id number] [address] [place] [address], [place] [address] Mar, [facility] [address] [id number] [address] [place] [address], [place] [address] Mar, [facility] [address] [id number] [address] [place] [address], [place] [address] Mar, [facility] [address] [id number] [address] [place] [address], [place] [address] Mar, [facility] [address] [id number] [address] [place] [address], [place] [address] Mar, [facility] [address] [id number] [address] [place] [address], [place] [address] Feb, [facility] [address] [id number] [address] [place] [address], [place] [address] Feb, [facility] [address] [id number] [address] [place] [address], [place] [address] Feb, [facility] [address] [id number] [address] [place] [address], [place] [address] Feb, [facility] [address] [id number] [address] [place] [address], [place] [address] Jan, [facility] [address] [id number] [address] [place] [address], [place] [address] Jan, [facility] [address] [id number] [address] [place] [address], [place] [address] Jan, [facility] [address] [id number] [address] [place] [address], [place] [address] Jan, [facility] [address] [id number] [facility] [place] [address] Jan, [facility] [address] [id number] [facility] [place] [address] Jan, [facility] [address] [id number] [facility] [place] [address] Dec, [facility] [address] [id number] [address] [place] [address], [place] [address] Dec, [facility] [address] [id number] [address] [place] [address], [place] [address] Nov, [facility] [address] [id number] [address] [place] [address], [place] [address] Nov, [facility] [address] [id number] [address] [place] [address], [place] [address] Nov, [facility] [address] [id number] [address] [place] [address], [place] [address] Nov, [facility] [address] [id number] [address] [place] [address], [place] [address] Nov, [facility] [address] [id number] [address] [place] [address], [place] [address] Nov, [facility] [address] [id number] [address] [place] [address], [place] [address] Sep, [facility] [address] [id number] [address] [place] [address], [place] [address] Sep, [facility] [address] [id number] [address] [place] [place] [address], [place] [address] Sep, [facility] [address] [id number] [address] [place] [address], [place] [address] Sep, [facility] [address] [id number] [address] [place] [place] [address], [place] [address] Aug, [facility] [address] [id number] [address] [place] [address], [place] [address] Aug, [facility] [address] [id number] [address] [place] [address], [place] [address] Jul, [facility] [address] [id number] [address] [place] [address], [place] [address] Jul, [facility] [address] [id number] [address] [place] [address], [place] [address] Jun, [facility] [address] [id number] [address] [place] [address], [place] [address] Jun, [facility] [address] [id number] [address] [place] [address], [place] [address] Jun, [facility] [address] [id number] [address] [place] [address], [place] [address] Jun, [facility] [address] [id number] [address] [place] [address], [place] [address] May, [facility] [address] [id number] [address] [place] [place] [address], [place] [address] May, [facility] [address] [id number] [address] [place] [address], [place] [address] May, [facility] [address] [id number] [address] [place] [place] [address], [place] [address] May, [facility] [address] [id number] [address] [place] [place] [address], [place] [address] May, [facility] [address] [id number] [address] [place] [address], [place] [address] May, [facility] [address] [id number] [address] [place] [address], [place] [address] Apr, [facility] [address] [id number] [address] [place] [address], [place] [address] Apr, [facility] [address] [id number] [address] [place] [address], [place] [address] Apr, [facility] [address] [id number] [address] [place] [address], [place] [address] Apr, [facility] [address] [id number] [address] [place] [address], [place] [address] Mar, [facility] [address] [id number] [address] [place] [place] [address], [place] [address] Mar, [facility] [address] [id number] [address] [place] [address], [place] [address] Mar, [facility] [address] [id number] [address] [place] [address], [place] [address] Mar, [facility] [address] [id number] [address] [place] [address], [place] [address] Feb, [facility] [address] [id number] [place] [id number] Jan, [facility] [address] [id number] [address] [place] [address], [place] [address] Jan, [facility] [address] [id number] [address] [place] [address], [place] [address] Dec, [facility] [address] [id number] [address] [place] [address], [place] [address] Dec, [facility] [address] [id number] [address] [place] [address], [place] [address] Dec, [facility] [address] [facility] [address] [id number] [place] [id number] Dec, [facility] [address] [id number] [address] [place] [address], [place] [address] Nov, [facility] [address] [id number] [address] [place] [address], [place] [address] 14 Nov, 2012 [facility] [address] [id number] [address] [place] [address], [place] [address] Nov, [facility] [address] [id number] [address] [place] [address], [place] [address] Nov, [facility] [address] [facility] [id number] [address] [place] [phone] Nov, [facility] [address] [facility] [id number] [address] [place] [id number] October, [facility] [address] [facility] [id number] [address] [place] [id number] October, [facility] [address] [facility] [id number] [address] [place] [id number] Aug, [facility] [address] [facility] [id number] [address] [place] [phone] Nov, IMMUNIZATIONS No Known Immunizations SOCIAL HISTORY [...] Hospitalization History gastric sleeve Hospitalization History [facility] Trouble with left shoulder blade 08/2017
--- OUTSIDE RECORDS SUMMARY | 2019-11-29 09:48 | XMS REPORT ---
Author Curt Hess [facility] eClinicalWorks Address Unknown Phone Unavailable Care Team Providers Care Marketing Analytics Analyst Name Role Phone CHRIS DIAZ Unavailable Allergies, Adverse Reactions, Alerts Substance Reaction Event Type Wheat throat swells Non Drug Allergy Egg White throat swells Non Drug Allergy Cows Milk throat swells Non Drug Allergy Peanuts throat swells Non Drug Allergy T[place] throat swells Non Drug Allergy [place] throat swells Non Drug Allergy Ragweed throat swells Non Drug Allergy Problems Problem Type Condition Code Onset Dates Condition Statu s Assessment Benign essential hypertension I10 Active Assessment Type II diabetes mellitus E11.9 Ac tive Problem Benign essential hypertension I10 Active Problem Type II diabetes mellitus E11.9 Ac tive Problem Morbid obesity E66.01 Active Problem Hyperlipemia E78.5 Active Assessment Morbid obesity E66.01 Active Problem Insomnia G47.00 Active Problem Major depression F32.9 Active Medications Medication Code System Code Instructions Start Date End Date Status Dosage Flonase [facility] [address]-98 50 mcg/actuation November 29, 2013 inhale 1 spray (50 mcg) in each nostril by intranasal route 2 times per day Lisinopril [facility] [address]-48 40 MG Orally Once a day August 21, 2014 1 Tablet by Oral route 1 time per day Furosemide [facility] [id number] 20 MG TAKE 1 TA BLET BY MOUTH ONCE DAILY NEEDED ONLY WITH EXCESSIVE SWELLING Tricor [facility] 38674412916 145 MG 1 tablet by Oral route 1 time per day [facility] Flovent HFA [facility] [address]-77 110 mcg/actuation October 23, 2012 1-3 Puffs 1 time per day Abilify [facility] 37771282702 10 MG 1 tablet by Oral route 1 time per day Once a day Orally Brintellix [facility] [address]-27 20 MG Orally Once a day for one w [place] November 18, 2014 1 tablet MetFORMIN HCl ER (MOD) [facility] [address]-44 1000 MG Orally tw ice a day January 08, 2015 1 tablet with evenin g meal Meloxicam [facility] 90784613229 15 MG 1 take 1 t ablet by mouth 1 time per day Singulair [facility] 08373880556 10 MG 1 Tablet b y Oral route 1 time per day take 1 tablet by mouth 1 time per day Omeprazole [facility] [address]-75 20 MG Orally Once a day 1 capsule Atenolol [facility] [address]-77 100 MG Orally Once a day August 21, 2014 1 tablet by Oral route 1 time per day Procedures Procedure Coding System Code Date Office Visit, Est Pt., Level 3 CPT-[address] 2014 Vital Signs Date/Time: Mar 19, 2015 Temperature 99.5 F Weight 445.9 lbs Height 72 in BMI 60.47 Index Blood Pressure Diastolic 94 mmHg Blood Pressure Systolic 132 mmHg Cardiac Monitoring Heart Rate 99 bpm Results No Known Results Summary Purpose eClinicalWorks Submission
--- OUTSIDE RECORDS SUMMARY | 2019-11-29 09:48 | XMS REPORT ---
Author Author Curt DIAZ [facility] Address [address] [place] [address] Care Team Providers Care Sales Marketing Manager Name Role Phone JOE CHRIS Unavailable PROBLEMS Type Condition ICD9-CM Code VFB17-[place] Code Onset Dates Condition S tatus SNOMED Code Problem Renal insufficiency N28.9 Active 247359724 Problem Callus of foot L84 Active 14528 1005 Problem Edema R60.9 Active 886334384 Problem Vitamin D deficiency E55.9 Active 64119874 Problem Anxiety F41.9 Active 49692196 Problem Acute bacterial conjunctivitis of left eye H10.32 Active 587563302 Problem Recurrent major depressive disorder, in partial remission F33.41 Active 79540396 Problem Severe episode of recurrent major depressive disorder, without psychotic features F33.2 Active 37874880 Problem Metabolic syndrome E88.81 Active 2 92259534 Problem Hyperlipemia E78.5 Active 7085506 4 Problem Type II diabetes mellitus E11.9 Acti ve 39300061 Problem Insomnia G47.00 Active 318937314 Problem Morbid obesity E66.01 Active 79156 6002 Problem Major depression F32.9 Active 370 121335 Problem Benign essential hypertension I10 Active 9312856 ALLERGIES No Information ENCOUNTERS Encounter Location Date Diagnosis [facility] [address] [id number][place] [id number] Sep, [facility] [address] [address] [id number], [place] [id number] Aug, [facility] [address] [id number], [place] [id number] Aug, Irritable mood R45.4 [facility] [address] [facility] [id number] [address] [place] [address] Aug, [facility] [address] [id number][place] [id number] Jul, Benign essential hypertension I10 ; Robert a R60.9 and Impacted cerumen of left ear H61.22 [place] [address] [facility] [id number] [address] [place] [phone] 14 Jul, 2017 Major depression F32.9 ; Rec urrent major depressive disorder, in partial remission F33.41 and Anxiety F41.9 [place] [address] [facility] [id number] [address] [place] [phone] Jun, Major depression F32.9 ; Rec urrent major depressive disorder, in partial remission F33.41 and Anxiety F41.9 [facility] [id number] [place] [address] [id number] Jun, Major depression F32.9 ; Morbid obesity E66.01 ; Irritable mood R45.4 ; Hand weakness R29.898 and Vitamin D deficiency E55.9 [facility] [address] [id number], [place] [id number] Jun, [facility] [address] [id number] [place] [address] [id number] May, Major depression F32.9 [place] [address] [facility] [id number] [address] [place] [phone] May, Major depression F32.9 [facility] [id number] [place] [address] [id number] May, BMI 50.0-59.9, adult Z68.43 ; Major depr ession F32.9 ; Anxiety F41.9 ; Hypertrophic toenail L60.2 and Pain of left great toe M79.675 [facility] [address] [id number][place] [id number] May, Recurrent major depressive disorder, in partial remission F33.41 [place] [address] [facility] [id number] [address] [place] [phone] Apr, [facility] [address] [address] [id number], [place] [id number] Apr, [facility] [address] [facility] [id number] [address] [place] [phone] Apr, Major depression F32.9 [facility] [address] [id number], [place] [id number] Apr, Severe episode of recurrent major depres sive disorder, without psychotic features F33.2 ; Anxiety F41.9 and Insomnia G47.00 [facility] [address] [address] [id number], [place] [id number] Apr, [facility] [address] [facility] [id number] [address] [place] [phone] Apr, [facility] [address] [id number], [place] [id number] Apr, [facility] [address] [id number], [place] [id number] Mar, [facility] [address] [id number], [place] [id number] Mar, Allergic conjunctivitis of both eyes H10 .13 [facility] [address] [facility] [id number] [address] [place] [phone] Mar, Major depression F32.9 [facility] [address] [id number], [place] [id number] Mar, Metabolic syndrome E88.81 ; History of g astric bypass Z98.890 ; Benign essential hypertension I10 and Allergic conjunctivitis of both eyes H10.13 [facility] [address] [facility] [id number] [address] [place] [phone] Mar, Major depression F32.9 [facility] [address] [id number], [place] [id number] Feb, [facility] [address] [facility] [id number] [address] [place] [phone] Feb, Major depression F32.9 [place] [address] [facility] [address] [id number], [place] [id number] Feb, Subacute maxillary sinusitis J01.00 and Bronchitis J40 [place] [address] [facility] [id number] [address] [place] [phone] Feb, Major depressive disorder, r ecurrent, moderate F33.[address] [id number], [place] [id number] Jan, [address] [id number] [place] [address] [id number] Jan, Acute non-recurrent maxillary sinusitis J01.00 and Skin tag L91.[address] [id number] [place] [address] [id number] Jan, Cough R05 and Sinus congestion R09.[address] [id number] [place] [address] [id number] Jan, [address] [id number] [place] [address] [id number] Jan, Benign essential hypertension I10 ; Hist ory of gastric bypass Z98.890 and Nausea and vomiting in adult R11.2 [place] [address] [address] [place] [id number] [address] [place] [phone] Jan, Major depressive disorder, r ecurrent, moderate F33.1 [place] [address] [place] [id number] [address] [place] [phone] Dec, Insomnia G47.00 ; Recurrent major depressive disorder, in partial remission F33.41 and Morbid obesity E66.01 [facility] [address] [facility] [address] [id number], [place] [id number] Dec, [facility] [address] [id number] [place] [address] [id number] Dec, Chronic bacterial conjunctivitis of left eye H10.402 [facility] [address] [id number] [place] [address] [id number] Nov, [address] [id number], [place] [id number] Nov, Dental examination Z01.[address] [id number] [place] [address] [id number] Nov, Benign essential hypertension I10 ; Hist ory of gastric bypass Z98.890 and Nausea and vomiting in adult R11.[address] [place] [phone] 13 Nov, 2016 Major depressive disorder, r ecurrent, moderate F33.1 ; Generalized anxiety disorder F41.1 and Insomnia due to other mental disorder F51.[address] [place] [phone] 12 Nov, 2016 Recurrent major depressive d isorder, in partial remission F33.41 ; Insomnia G47.00 and Morbid obesity E66.01 [facility] [address] [id number] [id number] October, Abscess of left arm L02.414 [place] [id number] [address] [place] [id number] October, Morbid obesity E66.01 ; Lida r depression F32.9 and Recurrent major depressive disorder, in partial remission F33.41 [address] [id number], [place] [id number] Sep, Benign essential hypertension I10 ; Morb id obesity E66.01 ; S/P gastric bypass Z98.84 ; Abscess L02.91 and Chronic bacterial conjunctivitis of left eye H10.[address] [id number] [place] [address] [id number] Sep, Dental examination Z01.20 [place] [address] [place] [id number] [address] [place] [phone] Sep, Morbid obesity E66.01 ; Lida r depression F32.9 and Recurrent major depressive disorder, in partial remission F33.41 [place] [address] [address] [place] [id number] [address] [place] [phone] Jul, [facility] [address] [facility] [id number] [address] [place] [phone] Jul, Major depressive disorder, r ecurrent, moderate F33.1 [place] [address] [address] [place] [id number] [address] [place] [phone] Jul, Major depressive disorder, r ecurrent, moderate F33.1 and Generalized anxiety disorder F41.1 [facility] [id number] [place] [address] [id number] Jul, Cough R05 [place] [address] [phone] Jul, Morbid obesity E66.01 ; Lida r depression F32.9 and Recurrent major depressive disorder, in partial remission F33.41 [facility] [id number] [place] [address] [id number] Jul, [facility] [address] [id number] [place] [address] [id number] Jul, [facility] [place] [id number] [place] [address] [id number] Jul, Gastroenteritis K52.9 and Cough R05 [facility] [id number] [place] [address] [id number] Jun, Acute bacterial conjunctivitis of left e ye H10.32 [place] [address] [place] [id number] [address] [place] [phone] Jun, [place] [address] [place] [id number] [address] [place] [phone] Jun, Recurrent major depressive d isorder, in partial remission F33.41 [place] [address] [place] [id number] [address] [place] [phone] May, Major depression F32.9 and M orbid obesity E66.01 [place] [address] [facility] [id number] [address] [place] [phone] May, [place] [address] [facility] [id number] [place] [address] [id number] May, Thrush B37.0 [place] [address] [facility] [id number] [address] [place] [phone] Apr, Major depressive disorder, r ecurrent, moderate F33.1 [place] [address] [facility] [id number] [address] [place] [phone] Apr, Insomnia G47.00 ; Major depr ession F32.9 and Recurrent major depressive disorder, in partial remission F33.41 [place] [address] [facility] [id number] [address] [place] [phone] Apr, [place] [address] [place] [id number] [address] [place] [phone] 02 Apr, 2016 Major depression F32.9 and R ecurrent major depressive disorder, in partial remission F33.[address] [id number] [place] [address] [id number] Mar, Benign essential hypertension I10 ; Morb id obesity E66.01 ; Impacted cerumen of both ears H61.23 ; Laceration of finger of right hand, initial encounter S61.219A and Encounter for immunization Z23 [place] [address] [facility] [id number] [address] [place] [phone] 17 Mar, 2016 [place] [address] [facility] [id number] [address] [place] [phone] Mar, [place] [address] [facility] [id number] [address] [place] [phone] Mar, [address] [id number] [place] [address] [id number] 29 Feb, 2016 Nausea R11.0 ; Blood in the stool K92.1 and Benign essential hypertension I10 [place] [address] [facility] [id number] [address] [place] [phone] Feb, Major depression F32.9 and R ecurrent major depressive disorder, in partial remission F33.41 [facility] [address] [address] [id number], [place] [id number] Feb, [facility] [address] [id number], [place] [id number] Feb, Recurrent major depressive disorder, in partial remission F33.41 [facility] [address] [id number], [place] [id number] Jan, [facility] [address] [id number], [place] [id number] Jan, Benign essential hypertension I10 ; Robert a R60.9 and Hyperlipidemia, unspecified hyperlipidemia type E78.5 [facility] [address] [address] [id number], [place] [id number] Jan, Recurrent major depressive disorder, in partial remission F33.41 [facility] [place] [address] [id number] [place] [id number] Jan, [facility] [address] [id number], [place] [id number] Jan, [facility] [address] [id number], [place] [id number] Jan, [facility] [address] [facility] [id number] [address] [place] [phone] Jan, [facility] [address] [facility] [id number] [address] [place] [phone] Dec, [facility] [address] [facility] [id number] [address] [place] [phone] Nov, [facility] [address] [facility] [id number] [address] [place] [phone] Nov, Major depression F32.9 [facility] [address] [facility] [id number] [address] [place] [phone] Nov, [facility] [address] [facility] [id number] [address] [place] [phone] Nov, [facility] [address] [facility] [id number] [address] [place] [phone] Nov, Major depressive disorder, r ecurrent episode, mild F33.0 and Anxiety F41.9 [facility] [address] [id number], [place] [id number] Nov, [facility] [address] [id number], [place] [id number] October, Left elbow pain M25.522 and Other season al allergic rhinitis J30.2 [facility] [address] [facility] [address] [id number] [place] [address] [id number] October, [facility] [address] [facility] [id number] [address] [place] [phone] October, Major depressive disorder, r ecurrent, moderate F33.1 [place] [address] [facility] [id number] [address] [place] [phone] October, Major depression F32.9 [place] [address] [facility] [id number] [address] [place] [phone] Sep, [place] or callus L84 and Onych omycosis B35.1 [place] [address] [facility] [id number] [address] [place] [phone] Sep, Major depressive disorder, r ecurrent, moderate F33.1 [facility] [address] [facility] [id number] [address] [place] [phone] Sep, Major depression F32.9 [place] [address] [facility] [id number] [address] [place] [phone] 13 Sep, 2015 Moderate episode of recurren t major depressive disorder F33.1 [facility] [id number] [place] [address] [id number] Sep, Muscle strain T14.8 [facility] [address] [facility] [id number] [address] [place] [phone] Aug, Major depression F32.9 [facility] [address] [facility] [id number] [address] [place] [phone] Aug, Major depression F32.9 [facility] [address] [facility] [id number] [address] [place] [phone] Jul, Morbid obesity E66.01 and Ma cora depression F32.9 [facility] [address] [facility] [id number] [address] [place] [phone] Jul, Depression, major, recurrent , moderate F33.[address] [id number], [place] [id number] Jul, [facility] [address] [facility] [id number] [address] [place] [phone] Jul, [facility] [address] [place] [id number] [address] [place] [phone] Jul, Major depression F32.9 and M orbid obesity E66.[address] [id number], [place] [id number] Jul, Type II diabetes mellitus E11.9 ; Callus of foot L84 ; Benign essential hypertension I10 and Renal insufficiency N28.9 [facility] [address] [facility] [id number] [address] [place] [phone] 09 Jul, 2015 Depression, major, recurrent , moderate F33.1 [facility] [address] [facility] [id number] [address] [place] [phone] Jul, Major depression F32.9 [facility] [address] [facility] [id number] [address] [place] [phone] Jul, [facility] [address] [facility] [id number] [address] [place] [phone] Jun, Major depression F32.9 [facility] [address] [facility] [id number] [address] [place] [phone] Jun, Major depressive disorder, r ecurrent, moderate F33.1 [facility] [address] [facility] [id number] [address] [place] [phone] Jun, [place] [address] [facility] [id number] [address] [place], [place] [id number] Jun, Major depressive disorder, r ecurrent, moderate F33.1 and Major depression F32.[id number] [place] [address] [id number] Jun, Type II diabetes mellitus E11.9 [place] [address] [facility] [id number] [address] [place] [phone] Jun, Depression, major, recurrent , moderate F33.1 [place] [address] [place] [id number] [address] [place] [phone] May, Major depressive disorder, r ecurrent, moderate F33.1 [place] [address] [place] [phone] May, [id number] [place] [address] [id number] May, Edema R60.9 [place] [address] [place] [id number] [address] [place] [phone] 17 May, 2015 Insomnia G47.00 and Major de pression F32.[id number] [place] [address] [id number] 15 May, 2015 Morbid obesity E66.01 ; Edema R60.9 ; Sh ortness of breath R06.02 ; Benign essential hypertension I10 and Renal insufficiency N28.[id number] [place] [address] [id number] 14 May, 2015 Hyperlipemia 272.4 and Renal insufficien cy N28.9 [place] [address] [facility] [id number] [address] [place] [phone] Apr, Major depression F32.9 [place] [address] [place] [phone] Apr, [place] [address] [facility] [id number] [address] [place] [phone] Apr, Major depressive disorder, r ecurrent, moderate F33.1 [facility] [address] [id number] [id number] Apr, Type II diabetes mellitus E11.9 ; Benign essential hypertension I10 ; Edema R60.9 and Renal insufficiency N28.9 [place] [address] [address] [facility] [id number] [address] [place] [phone] Mar, Major depressive disorder, r ecurrent, moderate F33.1 [place] [address] [address] [place] [id number] [address] [place] [phone] Mar, [place] [address] [address] [facility] [id number] [address] [place] [phone] Mar, Major depression F32.9 [facility] [address] [place] [address] A[id number] [id number] Mar, Morbid obesity E66.01 ; Benign essential hypertension I10 and Type II diabetes mellitus E11.9 [place] [address] [address] [facility] [id number] [address] [place] [phone] Feb, Major depressive disorder, r ecurrent, moderate F33.1 [place] [address] [address] [place] [id number] [address] [place] [phone] Feb, Major depressive disorder, r ecurrent episode, in partial or unspecified remission 296.35 ; Anxiety state, unspecified 300.00 and Morbid obesity 278.01 [place] [address] [address] [facility] [id number] [address] [place] [phone] Feb, [facility] [address] [id number] [id number] Feb, Vomiting 787.03 and Viral syndrome 079.9 [address] [place] [address] [address] [facility] [id number] [address] [place] [phone] Feb, Major depression, recurrent 296.30 ; Generalized anxiety disorder 300.02 and No condition on [place] II V71.[address] [id number] [id number] Feb, Skin tag 701.9 [facility] [address] [facility] [id number] [address] [place] [phone] Feb, [facility] [address] [place] [id number] [address] [place] [phone] Jan, Depression, major, recurrent , moderate 296.[address] [id number] [id number] Jan, Nausea and vomiting 787.01 ; Rib pain on right side 786.50 and Fall on or from sidewalk curb E880.1 [facility] [address] [facility] [id number] [address] [place] [id number] Jan, [facility] [address] [place] [id number] [address] [place] [id number] Jan, Major depressive disorder, r ecurrent episode, in partial or unspecified remission 296.35 and Anxiety state, unspecified 300.[address] [id number] [id number] Jan, [facility] [address] [facility] [id number] [address] [place] [address] Jan, Depression, major, recurrent , moderate 296.32 [facility] [address] [facility] [id number] [address] [place] [address] Jan, Major depression, recurrent 296.30 ; No condition on Greenleaf II V71.09 and No condition on axis III V71.[address] [id number] [id number] Jan, Drug-induced nausea and vomiting 787.01 [place] [address] [facility] [id number] [address] [place] [address] Jan, Depression, major, recurrent , moderate 296.32 [facility] [address] [facility] [id number] [address] [place] [address] Dec, Depression, major, recurrent , moderate 296.32 [facility] TORRIE Bender[address] [facility] [id number] [id number] Dec, Morbid obesity 278.01 ; Metabolic syndro me 277.7 ; Hyperlipemia 272.4 ; Benign essential hypertension 401.1 ; Dietary counseling V65.3 ; Exercise counseling V65.41 and Inflamed skin tag 701.[address] [id number] [address] [place] [address] Dec, Depression, major, recurrent , moderate 296.32 [place] [address] [address] Dec, [address] [address] Dec, Major depression, recurrent 296.30 ; Anxiety, generalized 300.02 and No condition on Greenleaf II V71.09 [place] [id number] [address] [place] [address] Dec, Depression, major, recurrent , moderate 296.32 [place] [address] [address] [place] [id number] [address] [place] [address] Dec, Major depressive disorder, r ecurrent episode, moderate 296.32 [id number] [place] [address] Dec, Depression, major, recurrent , moderate 296.[address] [id number] [address] [place] [address] Dec, Depression, major, recurrent , moderate 296.32 [place] [address] [address] [place] [id number] [address] [place] [address] Dec, Depression, major, recurrent , moderate 296.32 [place] [id number] [address] [place] [address] Dec, Depression, major, recurrent , moderate 296.32 [facility] [address] [address] Nov, Depression, major, recurrent , moderate 296.32 [facility] [address] [address] Nov, Major depression 296.20 ; So cial phobia 300.23 and No condition on Greenleaf II V71.09 [facility] [address] [address] Nov, Depression, major, recurrent , moderate 296.32 [place] [address] [address] Nov, Major depressive disorder, r ecurrent episode, moderate 296.32 and Generalized anxiety disorder 300.[address] [address] Nov, Depression, major, recurrent , moderate 296.32 [facility] [address] [address] Nov, Depression, major, recurrent , moderate 296.32 [place] [address] [address] October, Generalized anxiety disorder 300.02 ; No condition on Greenleaf II V71.09 and Major depressive disorder, recurrent 296.30 [facility] [address] [address] Sep, [facility] [address] [address] Sep, [facility] [address] [address] Aug, [facility] [address] [address] Aug, [facility] [address] [address] 23 Aug, 2014 [facility] [address] [id number] [address] [place] [address], [place] [address] 23 Aug, 2014 [facility] [facility] [address] [id number] [address] [place] [address], [place] [address] 20 Aug, 2014 [facility] [place] [facility] [address] [id number] [address] [place] [address], [place] [address] 20 Aug, 2014 [facility] [place] [facility] [address] [id number] [address] [place] [address], [place] [address] 20 Aug, 2014 [facility] [place] [facility] [address] [id number] [address] [place] [address], [place] [address] 20 Aug, 2014 [facility] [place] [facility] [address] [id number] [address] [place] [address], [place] [address] 13 Aug, 2014 [facility] [place] [facility] [address] [id number] [address] [place] [address], [place] [address] 13 Aug, 2014 [facility] [place] [facility] [address] [id number] [address] [place] [address], [place] [address] 13 Aug, 2014 [facility] [address] [id number] [address] [place] [address], [place] [address] 13 Aug, 2014 [facility] [place] [facility] [address] [id number] [address] [place] [address], [place] [address] Aug, [facility] [place] [facility] [address] [id number] [address] [place] [address], [place] [address] Aug, [facility] [place] [facility] [address] [id number] [address] [place] [address], [place] [address] 10 Aug, 2014 [facility] [place] [facility] [address] [id number] [address] [place] [address], [place] [address] Aug, [facility] [place] [facility] [address] [id number] [address] [place] [address], [place] [address] 09 Aug, 2014 [facility] [place] [facility] [address] [id number] [address] [place] [address], [place] [address] Aug, [facility] [place] [facility] [address] [id number] [address] [place] [address], [place] [address] Jul, [facility] [address] [id number] [address] [place] [address], [place] [address] Jul, [facility] [address] [id number] [address] [place] [address], [place] [address] Jul, 2014 [facility] [address] [id number] [address] [place] [address], [place] [address] Jul, 2014 [facility] [address] [id number] [address] [place] [address], [place] [address] Jul, [facility] [address] [id number] [address] [place] [address], [place] [address] Jul, [facility] [address] [id number] [address] [place] [address], [place] [address] Jun, [facility] [address] [id number] [address] [place] [address], [place] [address] Jun, [facility] [address] [id number] [address] [place] [address], [place] [address] Jun, [facility] [address] [id number] [address] [place] [address], [place] [address] Jun, [facility] [address] [id number] [address] [place] [address], [place] [address] Jun, [facility] [address] [id number] [address] [place] [address], [place] [address] Jun, [facility] [address] [id number] [address] [place] [address], [place] [address] Jun, [facility] [place] [address] [id number] [address] [place] [address], [place] [address] Jun, [facility] [place] [facility] [address] [id number] [address] [place] [address], [place] [address] Jun, [facility] [place] [facility] [address] [id number] [address] [place] [address], [place] [address] Jun, [facility] [address] [id number] [address] [place] [address], [place] [address] Jun, [facility] [address] [id number] [address] [place] [address], [place] [address] Jun, [facility] [address] [id number] [place] [id number] Jun, [facility] [address] [id number] [address] [place] [address], [place] [address] Jun, [facility] [address] [id number] [address] [place] [address], [place] [address] Jun, [facility] [address] [id number] [address] [place] [address], [place] [address] Jun, [facility] [address] [id number] [address] [place] [address], [place] [address] May, [facility] [address] [id number] [address] [place] [address], [place] [address] May, [facility] [address] [id number] [address] [place] [address], [place] [address] May, [facility] [address] [id number] [address] [place] [address], [place] [address] May, [facility] [address] [id number] [address] [place] [address], [place] [address] Apr, [facility] [place] [facility] [address] [id number] [address] [place] [address], [place] [address] Apr, [facility] [place] [facility] [address] [id number] [address] [place] [address], [place] [address] Apr, [facility] [place] [facility] [address] [id number] [address] [place] [address], [place] [address] Apr, [facility] [place] [facility] [address] [id number] [address] [place] [address], [place] [address] Apr, [facility] [place] [facility] [address] [id number] [address] [place] [address] [place] [address] Apr, [facility] [place] [facility] [address] [id number] [address] [place] [address], [place] [address] Apr, [facility] [place] [facility] [address] [id number] [address] [place] [address], [place] [address] Apr, [facility] [place] [facility] [address] [id number] [address] [place] [address], [place] [address] Apr, [facility] [place] [facility] [address] [id number] [address] [place] [address], [place] [address] Apr, [facility] [place] [facility] [address] [id number] [address] [place] [address], [place] [address] Apr, [facility] [place] [facility] [address] [id number] [address] [place] [address], [place] [address] Apr, [facility] [place] [facility] [address] [id number] [address] [place] [address], [place] [address] Apr, [facility] [place] [facility] [address] [id number] [address] [place] [address], [place] [address] Apr, [facility] [place] [facility] [address] [id number] [address] [place] [address], [place] [address] Apr, [facility] [place] [facility] [address] [id number] [address] [place] [address], [place] [address] Apr, [facility] [place] [facility] [address] [id number] [address] [place] [address], [place] [address] Apr, [facility] [place] [facility] [address] [id number] [address] [place] [address] Apr, [facility] [place] [facility] [address] [id number] [address] [place] [address] Apr, [facility] [place] [facility] [address] [id number] [address] [place] [address], [place] [address] Apr, [facility] [place] [facility] [address] [id number] [address] [place] [address], [place] [address] Mar, [facility] [place] [facility] [address] [id number] [address] [place] [address], [place] [address] Mar, [facility] [place] [facility] [address] [id number] [address] [place] [address], [place] [address] Mar, [facility] [place] [facility] [address] [id number] [address] [place] [address], [place] [address] Mar, [facility] [place] [facility] [address] [id number] [address] [place] [address], [place] [address] Mar, [facility] [place] [facility] [address] [id number] [address] [place] [address], [place] [address] Mar, [facility] [place] [facility] [address] [id number] [address] [place] [address], [place] [address] Mar, [facility] [place] [facility] [address] [id number] [address] [place] [address], [place] [address] Mar, [facility] [place] [facility] [address] [id number] [address] [place] [address], [place] [address] Mar, [facility] [place] [facility] [address] [id number] [address] [place] [address], [place] [address] Mar, [facility] [place] [facility] [address] [id number] [address] [place] [address], [place] [address] Feb, [facility] [place] [facility] [address] [id number] [address] [place] [address], [place] [address] Feb, [facility] [place] [facility] [address] [id number] [address] [place] [address], [place] [address] Feb, [facility] [place] [facility] [address] [id number] [address] [place] [address], [place] [address] Feb, [facility] [place] [facility] [address] [id number] [address] [place] [address], [place] [address] Jan, [facility] [place] [facility] [address] [id number] [address] [place] [address], [place] [address] Jan, [facility] [place] [facility] [address] [id number] [address] [place] [address], [place] [address] Jan, [facility] [address] [id number] [facility] [place] [address] Jan, [facility] [place] [facility] [address] [id number] [address] [place] [address], [place] [address] Jan, [facility] [place] [facility] [address] [id number] [address] [place] [address], [place] [address] Jan, [facility] [place] [facility] [address] [id number] [address] [place] [address], [place] [address] Dec, [facility] [address] [id number] [address] [place] [address], [place] [address] Dec, [facility] [place] [facility] [address] [id number] [address] [place] [address], [place] [address] Nov, [facility] [place] [facility] [address] [id number] [address] [place] [address], [place] [address] Nov, [facility] [place] [facility] [address] [id number] [address] [place] [address], [place] [address] Nov, [facility] [place] [facility] [address] [id number] [address] [place] [address], [place] [address] Nov, [facility] [place] [facility] [address] [id number] [address] [place] [address], [place] [address] Nov, [facility] [place] [facility] [address] [id number] [address] [place] [address], [place] [address] Nov, [facility] [place] [facility] [address] [id number] [address] [place] [address], [place] [address] Sep, [facility] [place] [facility] [address] [id number] [address] [place] [address], [place] [address] Sep, [facility] [place] [facility] [address] [id number] [address] [place] [address], [place] [address] Sep, [facility] [place] [facility] [address] [id number] [address] [place] [address], [place] [address] Sep, [facility] [place] [facility] [address] [id number] [address] [place] [address] Aug, [facility] [address] [id number] [address] [place] [address], [place] [address] Aug, [facility] [address] [id number] [address] [place] [address], [place] [address] Jul, [facility] [address] [id number] [address] [place] [address], [place] [address] Jul, [facility] [address] [id number] [address] [place] [address], [place] [address] Jun, [facility] [address] [id number] [address] [place] [address], [place] [address] Jun, [facility] [address] [id number] [address] [place] [address], [place] [address] Jun, [facility] [address] [id number] [address] [place] [address], [place] [address] Jun, [facility] [address] [id number] [address] [place] [address], [place] [address] May, [facility] [address] [id number] [address] [place] [address], [place] [address] May, [facility] [address] [id number] [address] [place] [address], [place] [address] May, [facility] [address] [id number] [address] [place] [address], [place] [address] May, [facility] [address] [id number] [address] [place] [address], [place] [address] May, [facility] [address] [id number] [address] [place] [address], [place] [address] May, [facility] [address] [id number] [address] [place] [address], [place] [address] Apr, [facility] [address] [id number] [address] [place] [address], [place] [address] Apr, [facility] [address] [id number] [address] [place] [address], [place] [address] Apr, [facility] [place] [facility] [address] [id number] [address] [place] [address], [place] [address] Apr, [facility] [place] [facility] [address] [id number] [address] [place] [address], [place] [address] Mar, [facility] [place] [facility] [address] [id number] [address] [place] [address], [place] [address] Mar, [facility] [address] [id number] [address] [place] [address], [place] [address] Mar, [facility] [place] [facility] [address] [id number] [address] [place] [address], [place] [address] Mar, [facility] [address] [id number] [address] [place] [address], [place] [address] Feb, [facility] [address] [id number] [place] [id number] Jan, [facility] [address] [id number] [address] [place] [address], [place] [address] Jan, [facility] [address] [id number] [address] [place] [address], [place] [address] Dec, [facility] [place] [facility] [address] [id number] [address] [place] [address], [place] [address] Dec, [facility] [address] [id number] [address] [place] [address], [place] [address] Dec, [facility] [address] [id number] [place] [id number] Dec, [facility] [place] [facility] [address] [id number] [address] [place] [address], [place] [address] Nov, [facility] [place] [facility] [address] [id number] [address] [place] [address], [place] [address] 14 Nov, 2012 [facility] [place] [facility] [address] [id number] [address] [place] [address], [place] [address] Nov, [facility] [address] [facility] [id number] [address] [place] [id number] Nov, [facility] [address] [facility] [id number] [address] [place] [address] Nov, [facility] [address] [facility] [id number] [address] [place] [id number] October, [facility] [address] [facility] [id number] [address] [place] [id number] October, [facility] [address] [facility] [id number] [address] [place] [phone] Aug, [facility] [address] [facility] [id number] [address] [place] [phone] Nov, IMMUNIZATIONS No Known Immunizations SOCIAL HISTORY Never Assessed REASON FOR VISIT Refill requests PLAN OF CARE VITAL SIGNS MEDICATIONS Medication Instructions Dosage Frequency Start Date End Date Duration S tatus Erythromycin 5 MG/GM Ophthalmic 2 times a day- left eye 1 applicati on Sep, Dec, 10 day(s) Active RESULTS No Results PROCEDURES No Known [...]
--- OUTSIDE RECORDS SUMMARY | 2019-11-29 09:48 | XMS REPORT ---
Author Author [facility] eClinicalWorks Address Unknown Phone Unavailable Care Team Providers Care Senior Solutions Engineer Name Role Phone [facility] CP [...] Medications Procedures Procedure Coding System Code Date REFERRAL TO [facility] CPT-4 S0281 Feb 09, 2015 Results No Known Results Summary Purpose eClinicalWorks Submission
--- OUTSIDE RECORDS SUMMARY | 2019-11-29 09:48 | XMS REPORT ---
Author Author GAL Curt BEATTY Organization [facility] Address [address] [place] [address] Care Team Providers Care Industrial Equipment Wirer Name Role Phone JACI SANTO Unavailable PROBLEMS Type Condition ICD9-CM Code DUN18-CY Code Onset Dates Condition S tatus SNOMED Code Problem Renal insufficiency N28.9 Active 083988328 Problem Callus of foot L84 Active 40203 1005 Problem Edema R60.9 Active 080438502 Problem Vitamin D deficiency E55.9 Active 13691431 Problem Anxiety F41.9 Active 53512856 Problem Acute bacterial conjunctivitis of left eye H10.32 Active 268767721 Problem Recurrent major depressive disorder, in partial remission F33.41 Active 41351317 Problem Severe episode of recurrent major depressive disorder, without psychotic features F33.2 Active 33335549 Problem Metabolic syndrome E88.81 Active 2 31453996 Problem Hyperlipemia E78.5 Active 3854159 4 Problem Type II diabetes mellitus E11.9 Acti ve 29299574 Problem Insomnia G47.00 Active 928886701 Problem Morbid obesity E66.01 Active 20686 6002 Problem Major depression F32.9 Active 370 903361 Problem Benign essential hypertension I10 Active 1342697 ALLERGIES No Information ENCOUNTERS Encounter Location Date Diagnosis [facility] [address] [facility] [id number] [address] [address] October, [facility] [address] [id number][place] [id number] Sep, [facility] [address] [id number], [place] [id number] Sep, [facility] [id number] [id number], [place] [id number] Sep, Hospital discharge follow-up Z09 ; Aller gic rhinitis, unspecified seasonality, unspecified trigger J30.9 and Shortness of breath R06.[id number] [place] [address] [id number] Sep, [address] [id number][place] [id number] Aug, Irritable mood R45.4 [place] [address] [place] [id number] [address] [place] [phone] Aug, [address] [id number] [place] [address] [id number] Jul, Benign essential hypertension I10 ; Robert a R60.9 and Impacted cerumen of left ear H61.22 [place] [address] [place] [id number] [address] [place] [phone] 14 Jul, 2017 Major depression F32.9 ; Rec urrent major depressive disorder, in partial remission F33.41 and Anxiety F41.9 [place] [address] [place] [id number] [address] [place] [phone] Jun, Major depression F32.9 ; Rec urrent major depressive disorder, in partial remission F33.41 and Anxiety F41.[address] [id number], [place] [id number] Jun, Major depression F32.9 ; Morbid obesity E66.01 ; Irritable mood R45.4 ; Hand weakness R29.898 and Vitamin D deficiency E55.[address] [id number], [place] [id number] Jun, [id number] [place] [address] [phone] May, Major depression F32.9 [place] [address] [facility] [id number] [address] [place] [phone] May, Major depression F32.[id number] [place] [address] [phone] May, BMI 50.0-59.9, adult Z68.43 ; Major depr ession F32.9 ; Anxiety F41.9 ; Hypertrophic toenail L60.2 and Pain of left great toe M79.675 [facility] [address] [id number], [place] [id number] May, Recurrent major depressive disorder, in partial remission F33.41 [facility] [address] [facility] [id number] [address] [place] [phone] Apr, [facility] [id number] [place] [address] [id number] Apr, [facility] [address] [facility] [id number] [address] [place] [phone] Apr, Major depression F32.9 [facility] [id number] [place] [address] [phone] Apr, Severe episode of recurrent major depres sive disorder, without psychotic features F33.2 ; Anxiety F41.9 and Insomnia G47.00 [facility] [id number] [place] [address] [phone] Apr, [facility] [address] [facility] [id number] [address] [place] [phone] Apr, [facility] [id number] [place] [address] [phone] Apr, [facility] [address] [id number], [place] [id number] Mar, [facility] [id number] [place] [address] [id number] Mar, Allergic conjunctivitis of both eyes H10 .13 [facility] [address] [facility] [id number] [address] [place] [phone] Mar, Major depression F32.9 [facility] [address] [id number], [place] [id number] Mar, Metabolic syndrome E88.81 ; History of g astric bypass Z98.890 ; Benign essential hypertension I10 and Allergic conjunctivitis of both eyes H10.13 [facility] [address] [facility] [id number] [address] [place] [phone] Mar, Major depression F32.9 [facility] [address] [facility] [address] [id number], [place] [id number] Feb, [facility] [address] [facility] [id number] [address] [place] [phone] Feb, Major depression F32.9 [facility] [address] [facility] [address] [id number], [place] [id number] Feb, Subacute maxillary sinusitis J01.00 and Bronchitis J40 [place] [address] [facility] [id number] [address] [place] [phone] Feb, Major depressive disorder, r ecurrent, moderate F33.1 [place] [address] [facility] [address] [id number], [place] [id number] Jan, [id number] [place] [address] [id number] Jan, Acute non-recurrent maxillary sinusitis J01.00 and Skin tag L91.[address] [id number], [place] [id number] Jan, Cough R05 and Sinus congestion R09.[address] [id number], [place] [id number] Jan, [address] [id number] [place] [address] [id number] Jan, Benign essential hypertension I10 ; Hist ory of gastric bypass Z98.890 and Nausea and vomiting in adult R11.2 [place] [address] [facility] [id number] [address] [place] [phone] Jan, Major depressive disorder, r ecurrent, moderate F33.1 [place] [address] [facility] [id number] [address] [place] [phone] Dec, Insomnia G47.00 ; Recurrent major depressive disorder, in partial remission F33.41 and Morbid obesity E66.01 [facility] TORRIE Bender[address] [facility] [address] [id number], [place] [id number] Dec, [facility] [address] [id number], [place] [id number] Dec, Chronic bacterial conjunctivitis of left eye H10.402 [facility] [address] [id number], [place] [id number] Nov, [facility] [address] [id number], [place] [id number] Nov, Dental examination Z01.20 [facility] [address] [id number], [place] [id number] Nov, Benign essential hypertension I10 ; Hist ory of gastric bypass Z98.890 and Nausea and vomiting in adult R11.2 [place] [id number] [place] [phone] Nov, Major depressive disorder, r ecurrent, moderate F33.1 ; Generalized anxiety disorder F41.1 and Insomnia due to other mental disorder F51.05 [place] [id number] [address] [place] [phone] Nov, Recurrent major depressive d isorder, in partial remission F33.41 ; Insomnia G47.00 and Morbid obesity E66.01 [facility] [address] [place] [place] [id number] [place] [id number] October, Abscess of left arm L02.414 [facility] [address] [place] [phone] October, Morbid obesity E66.01 ; Lida r depression F32.9 and Recurrent major depressive disorder, in partial remission F33.41 [facility] [place] [address] [facility] [address] [id number], [place] [id number] Sep, Benign essential hypertension I10 ; Morb id obesity E66.01 ; S/P gastric bypass Z98.84 ; Abscess L02.91 and Chronic bacterial conjunctivitis of left eye H10.402 [facility] [address] [id number], [place] [id number] Sep, Dental examination Z01.20 [facility] [address] [facility] [id number] [address] [place] [phone] Sep, Morbid obesity E66.01 ; Lida r depression F32.9 and Recurrent major depressive disorder, in partial remission F33.41 [facility] [address] [facility] [id number] [address] [place] [phone] Jul, [facility] [address] [facility] [id number] [address] [place] [phone] Jul, Major depressive disorder, r ecurrent, moderate F33.1 [place] [address] [place] [id number] [address] [place] [phone] Jul, Major depressive disorder, r ecurrent, moderate F33.1 and Generalized anxiety disorder F41.[address] [place] [address] [id number], [place] [id number] Jul, Cough R05 [place] [address] [place] [phone] 16 Jul, 2016 Morbid obesity E66.01 ; Lida r depression F32.9 and Recurrent major depressive disorder, in partial remission F33.41 [facility] [address] [id number], [place] [id number] Jul, [facility] [address] [id number], [place] [id number] Jul, [facility] [address] [id number], [place] [id number] Jul, Gastroenteritis K52.[address] [facility] [address] [id number], [place] [id number] Jun, Acute bacterial conjunctivitis of left e ye H10.32 [facility] [address] [facility] [id number] [address] [place] [phone] Jun, [place] [address] [facility] [id number] [address] [place] [phone] Jun, Recurrent major depressive d isorder, in partial remission F33.41 [place] [address] [facility] [id number] [address] [place] [phone] May, Major depression F32.9 and M orbid obesity E66.01 [place] [address] [facility] [id number] [address] [place] [phone] May, [place] [id number] [place] [address] [id number] May, Thrush B37.0 [place] [address] [facility] [id number] [address] [place] [phone] Apr, Major depressive disorder, r ecurrent, moderate F33.1 [place] [address] [phone] Apr, Insomnia G47.00 ; Major depr ession F32.9 and Recurrent major depressive disorder, in partial remission F33.41 [place] [address] [place] [id number] [address] [place] [phone] Apr, [place] [address] [place] [id number] [address] [place] [phone] 02 Apr, 2016 Major depression F32.9 and R ecurrent major depressive disorder, in partial remission F33.[address] [place] [id number] [place] [address] [phone] 31 Mar, 2016 Benign essential hypertension I10 ; Morb id obesity E66.01 ; Impacted cerumen of both ears H61.23 ; Laceration of finger of right hand, initial encounter S61.219A and Encounter for immunization Z23 [place] [address] [facility] [id number] [address] [place] [phone] 17 Mar, 2016 [place] [address] [facility] [id number] [address] [place] [phone] Mar, [facility] [address] [facility] [id number] [address] [place] [phone] Mar, [facility] [address] [id number], [place] [id number] Feb, Nausea R11.0 ; Blood in the stool K92.1 and Benign essential hypertension I10 [facility] [address] [facility] [id number] [address] [place] [phone] Feb, Major depression F32.9 and R ecurrent major depressive disorder, in partial remission F33.41 [facility] [address] [id number], [place] [id number] Feb, [facility] [id number] [place] [address] [id number] Feb, Recurrent major depressive disorder, in partial remission F33.41 [facility] [address] [id number], [place] [id number] Jan, [facility] [address] [id number], [place] [id number] Jan, Benign essential hypertension I10 ; Robert a R60.9 and Hyperlipidemia, unspecified hyperlipidemia type E78.5 [facility] [address] [id number], [place] [id number] Jan, Recurrent major depressive disorder, in partial remission F33.41 [facility] [address] [id number] [id number] Jan, [facility] [address] [id number], [place] [id number] Jan, [facility] [address] [id number], [place] [id number] Jan, [facility] [address] [facility] [id number] [address] [place] [phone] Jan, [facility] [address] [facility] [id number] [address] [place] [phone] Dec, [facility] [address] [facility] [id number] [address] [place] [phone] Nov, [facility] [address] [facility] [id number] [address] [place] [phone] Nov, Major depression F32.9 [facility] [address] [facility] [id number] [address] [place] [phone] Nov, [facility] [address] [place] [id number] [address] [place] [phone] Nov, [facility] [address] [place] [id number] [address] [place] [phone] Nov, Major depressive disorder, r ecurrent episode, mild F33.[address] [facility] [id number] [place] [phone] Nov, [facility] [id number] [place] [address] [id number] October, Left elbow pain M25.522 and Other season al allergic rhinitis J30.[address] [place] [id number] [place] [address] [id number] October, [facility] [address] [place] [id number] [address] [place] [phone] October, Major depressive disorder, r ecurrent, moderate F33.1 [facility] [address] [facility] [id number] [address] [place] [phone] October, Major depression F32.9 [facility] [address] [facility] [id number] [address] [place] [phone] Sep, Carroll or callus L84 and Onych omycosis B35.1 [facility] [address] [facility] [id number] [address] [place] [phone] Sep, Major depressive disorder, r ecurrent, moderate F33.1 [facility] [address] [facility] [id number] [address] [place] [phone] Sep, Major depression F32.9 [facility] [address] [facility] [id number] [address] [place] [phone] Sep, Moderate episode of recurren t major depressive disorder F33.1 [facility] [id number] [place] [address] [id number] 05 Sep, 2015 Muscle strain T14.8 [facility] [address] [facility] [id number] [address] [place] [phone] Aug, Major depression F32.9 [facility] [address] [facility] [id number] [address] [place] [phone] Aug, Major depression F32.9 [place] [address] [facility] [id number] [address] [place] [phone] 24 Jul, 2015 Morbid obesity E66.01 and Ma cora depression F32.9 [place] [address] [facility] [id number] [address] [place] [phone] Jul, Depression, major, recurrent , moderate F33.1 [facility] [address] [facility] [id number] [place] [address] [id number] Jul, [facility] [address] [facility] [id number] [address] [place] [phone] Jul, [facility] [address] [facility] [id number] [address] [place] [phone] Jul, Major depression F32.9 and M orbid obesity E66.01 [place] [address] [facility] [id number] [place] [address] [id number] 11 Jul, 2015 Type II diabetes mellitus E11.9 ; Callus of foot L84 ; Benign essential hypertension I10 and Renal insufficiency N28.9 [facility] [address] [facility] [id number] [address] [place] [phone] 09 Jul, 2015 Depression, major, recurrent , moderate F33.1 [place] [id number] [facility] [id number] [address] [place] [phone] 05 Jul, 2015 Major depression F32.9 [place] [address] [facility] [id number] [address] [place] [phone] Jul, [place] [address] [facility] [id number] [address] [place] [phone] Jun, Major depression F32.9 [place] [address] [facility] [id number] [address] [place] [phone] Jun, Major depressive disorder, r ecurrent, moderate F33.1 [place] [address] [facility] [id number] [address] [place] [phone] Jun, [place] [address] [facility] [id number] [address] [place] [phone] Jun, Major depressive disorder, r ecurrent, moderate F33.1 and Major depression F32.[address] [place] [id number] [place] [address] [id number] Jun, Type II diabetes mellitus E11.9 [place] [address] [facility] [id number] [address] [place] [phone] Jun, Depression, major, recurrent , moderate F33.1 [place] [address] [facility] [id number] [address] [place] [phone] May, Major depressive disorder, r ecurrent, moderate F33.1 [place] [address] [facility] [id number] [address] [place] [phone] May, [place] [id number] [place] [address] [phone] May, Edema R60.9 [place] [address] [facility] [id number] [address] [place] [phone] May, Insomnia G47.00 and Major de pression F32.9 [facility] [address] [id number], [place] [id number] 15 May, 2015 Morbid obesity E66.01 ; Edema R60.9 ; Sh ortness of breath R06.02 ; Benign essential hypertension I10 and Renal insufficiency N28.[address] [id number], [place] [id number] May, Hyperlipemia 272.4 and Renal insufficien cy N28.9 [place] [address] [facility] [id number] [address] [place] [phone] Apr, Major depression F32.9 [place] [address] [facility] [id number] [address] [place] [phone] Apr, [place] [address] [facility] [id number] [address] [place] [phone] Apr, Major depressive disorder, r ecurrent, moderate F33.[address] [id number] [place] [address] [id number] Apr, Type II diabetes mellitus E11.9 ; Benign essential hypertension I10 ; Edema R60.9 and Renal insufficiency N28.9 [place] [address] [facility] [id number] [address] [place] [phone] Mar, Major depressive disorder, r ecurrent, moderate F33.1 [place] [address] [address] [facility] [id number] [address] [place] [phone] Mar, [place] [address] [address] [facility] [id number] [address] [place] [phone] Mar, Major depression F32.[address] [id number] [place] [address] [id number] Mar, Morbid obesity E66.01 ; Benign essential hypertension I10 and Type II diabetes mellitus E11.9 [place] [address] [address] [facility] [id number] [address] [place] [phone] Feb, Major depressive disorder, r ecurrent, moderate F33.1 [place] [address] [address] [facility] [id number] [address] [place] [phone] Feb, Major depressive disorder, r ecurrent episode, in partial or unspecified remission 296.35 ; Anxiety state, unspecified 300.00 and Morbid obesity 278.01 [place] [address] [address] [facility] [id number] [address] [place] [phone] Feb, [facility] [address] [id number] [id number] 16 Feb, 2015 Vomiting 787.03 and Viral syndrome 079.9 9 [place] [address] [address] [place] [id number] [address] [place] [phone] Feb, Major depression, recurrent 296.30 ; Generalized anxiety disorder 300.02 and No condition on [place]clean II V71.09 [facility] [address] [place] [address] AVE [id number] [place] [address] [id number] Feb, Skin tag 701.9 [place] [address] [address] [place] [id number] [address] [place] [address] Feb, [place] [address] [place] [id number] [address] [place] [address] Jan, Depression, major, recurrent , moderate 296.[address] [id number] [id number] Jan, Nausea and vomiting 787.01 ; Rib pain on right side 786.50 and Fall on or from sidewalk curb E880.1 [place] [address] [place] [id number] [address] [place] [address] Jan, [place] [address] [place] [id number] [address] [place] [address] Jan, Major depressive disorder, r ecurrent episode, in partial or unspecified remission 296.35 and Anxiety state, unspecified 300.00 [facility] [address] [place] [address] AVE [id number] [id number] Jan, [place] [address] [address] [facility] [id number] [address] [place] [address] Jan, Depression, major, recurrent , moderate 296.32 [place] [id number] [address] [place] [address] Jan, Major depression, recurrent 296.30 ; No condition on Mclean II V71.09 and No condition on axis III V71.09 [facility] [address] [id number] [id number] Jan, Drug-induced nausea and vomiting 787.[address] [id number] [address] [place] [address] Jan, Depression, major, recurrent , moderate 296.[address] [id number] [address] [place] [address] Dec, Depression, major, recurrent , moderate 296.32 [facility] [address] [id number] [id number] Dec, Morbid obesity 278.01 ; Metabolic syndro me 277.7 ; Hyperlipemia 272.4 ; Benign essential hypertension 401.1 ; Dietary counseling V65.3 ; Exercise counseling V65.41 and Inflamed skin tag 701.[address] [id number] [address] [place] [address] Dec, Depression, major, recurrent , moderate 296.32 [place] [id number] [address] [place] [address] Dec, [address] [id number] [address] [place] [address] Dec, Major depression, recurrent 296.30 ; Anxiety, generalized 300.02 and No condition on Mclean II V71.[address] [id number] [address] [place] [address] Dec, Depression, major, recurrent , moderate 296.32 [place] [id number] [address] [place] [address] Dec, Major depressive disorder, r ecurrent episode, moderate 296.32 [place] [id number] [address] [place] [address] Dec, Depression, major, recurrent , moderate 296.32 [place] [address] [place] [id number] [address] [place] [address] Dec, Depression, major, recurrent , moderate 296.32 [place] [address] [place] [id number] [address] [place] [address] Dec, Depression, major, recurrent , moderate 296.32 [place] [address] [address] Dec, Depression, major, recurrent , moderate 296.[address] [address] Nov, Depression, major, recurrent , moderate 296.32 [place] [address] [address] Nov, Major depression 296.20 ; So cial phobia 300.23 and No condition on Mclean II V71.09 [place] [address] [address] Nov, Depression, major, recurrent , moderate 296.[address] [address] Nov, Major depressive disorder, r ecurrent episode, moderate 296.32 and Generalized anxiety disorder 300.[address] [address] Nov, Depression, major, recurrent , moderate 296.32 [place] [address] [place] [id number] [address] [place] [address] Nov, Depression, major, recurrent , moderate 296.[address] [address] October, Generalized anxiety disorder 300.02 ; No condition on Mclean II V71.09 and Major depressive disorder, recurrent 296.[address] [address] Sep, [facility] [address] [id number] [facility] [place] [address] 13 Sep, 2014 [facility] [address] [id number] [address] [place] [address], [place] [address] 24 Aug, 2014 [facility] [address] [id number] [address] [place] [address], [place] [address] 24 Aug, 2014 [facility] [address] [id number] [address] [place] [address], [place] [address] 23 Aug, 2014 [facility] [address] [id number] [address] [place] [address], [place] [address] 23 Aug, 2014 [facility] [address] [id number] [address] [place] [address], [place] [address] 20 Aug, 2014 [facility] [address] [id number] [address] [place] [address], [place] [address] 20 Aug, 2014 [facility] [address] [id number] [address] [place] [address], [place] [address] 20 Aug, 2014 [facility] [address] [id number] [address] [place] [address], [place] [address] 20 Aug, 2014 [facility] [address] [id number] [address] [place] [address], [place] [address] 13 Aug, 2014 [facility] [address] [id number] [address] [place] [address], [place] [address] 13 Aug, 2014 [facility] [address] [id number] [address] [place] [address], [place] [address] 13 Aug, 2014 [facility] [address] [id number] [address] [place] [address], [place] [address] 13 Aug, 2014 [facility] [address] [id number] [address] [place] [address], [place] [address] 12 Aug, 2014 [facility] [address] [id number] [address] [place] [address], [place] [address] 12 Aug, 2014 [facility] [address] [id number] [address] [place] [address], [place] [address] 10 Aug, 2014 [facility] [address] [id number] [address] [place] [address], [place] [address] Aug, [facility] [address] [id number] [address] [place] [address], [place] [address] Aug, [facility] [address] [id number] [address] [place] [address], [place] [address] Aug, [facility] [address] [id number] [address] [place] [address], [place] [address] Jul, [facility] [address] [id number] [address] [place] [address], [place] [address] Jul, [facility] [address] [id number] [address] [place] [address], [place] [address] Jul, [facility] [address] [id number] [address] [place] [address], [place] [address] Jul, [facility] [address] [id number] [address] [place] [address], [place] [address] Jul, [facility] [address] [id number] [address] [place] [address], [place] [address] Jul, [facility] [address] [id number] [address] [place] [address], [place] [address] Jun, [facility] [address] [id number] [address] [place] [address], [place] [address] Jun, [facility] [address] [id number] [address] [place] [address], [place] [address] Jun, [facility] [address] [id number] [address] [place] [address], [place] [address] Jun, [facility] [address] [id number] [address] [place] [address], [place] [address] Jun, [facility] [address] [id number] [address] [place] [address], [place] [address] Jun, [facility] [address] [id number] [address] [place] [address], [place] [address] Jun, [facility] [address] [id number] [address] [place] [address], [place] [address] Jun, [facility] [address] [id number] [address] [place] [address], [place] [address] Jun, [facility] [address] [id number] [address] [place] [address], [place] [address] Jun, [facility] [address] [id number] [address] [place] [address], [place] [address] Jun, [facility] [address] [id number] [address] [place] [address], [place] [address] Jun, [facility] [address] [id number] [place] [id number] Jun, [facility] [address] [id number] [address] [place] [address], [place] [address] Jun, [facility] [address] [id number] [address] [place] [address], [place] [address] Jun, [facility] [address] [id number] [address] [place] [address], [place] [address] Jun, [facility] [address] [id number] [address] [place] [address], [place] [address] May, [facility] [address] [id number] [address] [place] [address], [place] [address] May, [facility] [address] [id number] [address] [place] [address], [place] [address] May, [facility] [address] [id number] [address] [place] [address], [place] [address] May, [facility] [address] [id number] [address] [place] [address], [place] [address] Apr, [facility] [address] [id number] [address] [place] [address], [place] [address] Apr, [facility] [address] [id number] [address] [place] [address], [place] [address] Apr, [facility] [address] [id number] [address] [place] [address], [place] [address] Apr, [facility] [address] [id number] [address] [place] [address], [place] [address] Apr, [facility] [address] [id number] [address] [place] [address], [place] [address] Apr, [facility] [address] [id number] [address] [place] [address], [place] [address] Apr, [facility] [address] [id number] [address] [place] [address], [place] [address] Apr, [facility] [address] [id number] [address] [place] [address], [place] [address] Apr, [facility] [address] [id number] [address] [place] [address], [place] [address] Apr, [facility] [address] [id number] [address] [place] [address], [place] [address] Apr, [facility] [address] [id number] [address] [place] [address], [place] [address] Apr, [facility] [address] [id number] [address] [place] [address], [place] [address] Apr, [facility] [address] [id number] [address] [place] [address], [place] [address] Apr, [facility] [address] [id number] [address] [place] [address], [place] [address] Apr, [facility] [address] [id number] [address] [place] [address], [place] [address] Apr, [facility] [address] [id number] [address] [place] [address], [place] [address] Apr, [facility] [address] [id number] [address] [place] [address], [place] [address] Apr, [facility] [address] [id number] [address] [place] [address], [place] [address] Apr, [facility] [address] [id number] [address] [place] [address], [place] [address] Apr, [facility] [address] [id number] [address] [place] [address], [place] [address] Mar, [facility] [address] [id number] [address] [place] [address], [place] [address] Mar, [facility] [address] [id number] [address] [place] [address], [place] [address] Mar, [facility] [address] [id number] [address] [place] [address], [place] [address] Mar, [facility] [address] [id number] [address] [place] [address], [place] [address] Mar, [facility] [address] [id number] [address] [place] [address], [place] [address] Mar, [facility] [address] [id number] [address] [place] [address], [place] [address] Mar, [facility] [address] [id number] [address] [place] [address], [place] [address] Mar, [facility] [address] [id number] [address] [place] [address], [place] [address] Mar, [facility] [address] [id number] [address] [place] [address], [place] [address] Mar, [facility] [address] [id number] [address] [place] [address], [place] [address] Feb, [facility] [address] [id number] [address] [place] [address], [place] [address] Feb, [facility] [address] [id number] [address] [place] [address], [place] [address] Feb, [facility] [address] [id number] [address] [place] [address], [place] [address] Feb, [facility] [address] [id number] [address] [place] [address], [place] [address] Jan, [facility] [address] [id number] [address] [place] [address], [place] [address] Jan, [facility] [address] [id number] [address] [place] [address], [place] [address] Jan, [facility] [address] [id number] [address] [place] [address], [place] [address] Jan, [facility] [address] [id number] [address] [place] [address], [place] [address] Jan, [facility] [address] [id number] [address] [place] [address], [place] [address] Jan, [facility] [address] [id number] [address] [place] [address], [place] [address] Dec, [facility] [address] [id number] [address] [place] [address], [place] [address] Dec, [facility] [address] [id number] [address] [place] [address], [place] [address] Nov, [facility] [address] [id number] [address] [place] [address], [place] [address] Nov, [facility] [address] [id number] [address] [place] [address], [place] [address] Nov, [facility] [address] [id number] [address] [place] [address], [place] [address] Nov, [facility] [address] [id number] [address] [place] [address], [place] [address] Nov, [facility] [address] [id number] [address] [place] [address], [place] [address] Nov, [facility] [address] [id number] [address] [place] [address], [place] [address] Sep, [facility] [address] [id number] [address] [place] [address], [place] [address] Sep, [facility] [address] [id number] [address] [place] [address], [place] [address] Sep, [facility] [address] [id number] [address] [place] [address], [place] [address] Sep, [facility] [address] [id number] [address] [place] [address], [place] [address] Aug, [facility] [address] [id number] [address] [place] [address], [place] [address] Aug, [facility] [address] [id number] [address] [place] [address], [place] [address] Jul, [facility] [address] [id number] [address] [place] [address], [place] [address] Jul, [facility] [address] [id number] [address] [place] [address], [place] [address] Jun, [facility] [address] [id number] [address] [place] [address], [place] [address] Jun, [facility] [address] [id number] [address] [place] [address], [place] [address] Jun, [facility] [address] [id number] [address] [place] [address], [place] [address] Jun, [facility] [address] [id number] [address] [place] [address], [place] [address] May, [facility] [address] [id number] [address] [place] [address], [place] [address] May, [facility] [address] [id number] [address] [place] [address], [place] [address] May, [facility] [address] [id number] [address] [place] [address], [place] [address] May, [facility] [address] [id number] [address] [place] [address], [place] [address] May, [facility] [address] [id number] [address] [place] [address], [place] [address] May, [facility] [address] [id number] [address] [place] [address], [place] [address] Apr, [facility] [address] [id number] [address] [place] [address], [place] [address] Apr, [facility] [address] [id number] [address] [place] [address], [place] [address] Apr, [facility] [address] [id number] [address] [place] [address], [place] [address] Apr, [facility] [address] [id number] [address] [place] [address], [place] [address] Mar, [facility] [address] [id number] [address] [place] [address], [place] [address] Mar, [facility] [address] [id number] [address] [place] [address], [place] [address] Mar, [facility] [address] [id number] [address] [place] [address], [place] [address] Mar, [facility] [address] [id number] [address] [place] [address], [place] [address] Feb, [facility] [address] [id number] [place], [facility] [id number] Jan, [facility] [address] [id number] [address] [place] [address], [place] [address] Jan, [facility] [address] [id number] [address] [place] [address], [place] [address] Dec, [facility] [address] [id number] [address] [place] [address], [place] [address] Dec, [facility] [address] [id number] [address] [place] [address], [place] [address] Dec, [facility] [address] [id number] [place] S [id number] Dec, 2012 [facility] [address] [id number] [address] [place] [address] Nov, [facility] [address] [id number] [address] [place] [address] Nov, [facility] [address] [id number] [address] [place] [address] Nov, [facility] [address] [id number] [address] [place] [address] Nov, [facility] [address] [id number] [address] [place] [address] Nov, [facility] [address] [facility] [id number] [address] [place] [address] October, [facility] [address] [id number] [address] [place] [address] October, [facility] [address] [facility] [id number] [address] [place] [address] Aug, [facility] [address] [facility] [id number] [address] [place] [address] Nov, IMMUNIZATIONS No Known Immunizations SOCIAL HISTORY Never Assessed REASON FOR VISIT Trintellix refill PLAN OF CARE VITAL SIGNS MEDICATIONS Medication Instructions Dosage Frequency Start Date End Date Duration S chandni Trintellix 20 mg TAKE 1 TABLET BY MOUTH ONCE DAILY 30 days Active RESULTS No Results PROCEDURES [...]
--- OUTSIDE RECORDS SUMMARY | 2019-11-29 09:48 | XMS REPORT ---
Author Author Curt Torres Organization [facility] Address [address] [place] [address] Care Team Providers Care Medical Biller/Coder Name Role Phone DILSHAD Torres Unavailable PROBLEMS Type Condition ICD9-CM Code [id number] Code Onset Dates Condition S tatus SNOMED Code Problem Major depression F32.9 Active 370 164743 Problem Morbid obesity E66.01 Active 04270 6002 Problem Benign essential hypertension I10 Active 1068479 Problem Insomnia G47.00 Active 666652314 Problem Hyperlipemia E78.5 Active 5069305 4 Problem Acute bacterial conjunctivitis of left eye H10.32 Active 890909151 Problem Recurrent major depressive disorder, in partial remission F33.41 Active 18796079 Problem Edema R60.9 Active 589189431 Problem Type II diabetes mellitus E11.9 Acti ve 85811124 Problem Callus of foot L84 Active 20166 1005 Problem Renal insufficiency N28.9 Active 811311061 ALLERGIES No Information SOCIAL HISTORY Never Assessed PLAN OF CARE Activity Details Follow Up 3 Months Reason: VITAL SIGNS Height 71.5 in 2016-08-04 Weight 412.2 lbs 2016-08-04 Heart Rate 84 bpm 2016-08-04 Respiratory Rate 22 2016-08-04 BMI 56.68 kg/m2 2016-08-04 Blood pressure systolic 132 mmHg 2016-08-04 Blood pressure diastolic 88 mmHg 2016-08-04 MEDICATIONS Medication Instructions Dosage Frequency Start Date End Date Duration S tatus Flovent HFA 110 mcg/actuation 1-3 Puffs 1 time per day October, Active Montelukast Sodium 10 MG TAKE ONE TABLET BY MOUTH DAILY Active Lisinopril 40 MG TAKE ONE TABLET BY MOUTH ONCE DAILY. 90 Active Zithromax 250 MG Orally Once a day 2 tablets on the fi rst day, then 1 tablet daily for 4 days 24h Jul, Jul, 5 day(s) Active Cetirizine HCl 10 mg Orally Once a day 1 tablet 24h Active Atenolol 100 MG TAKE ONE TABLET BY MOUTH ONCE DAILY. 90 Active Rexulti 1 MG 1 tablet Once a day Orally 30 days Active Trintellix 20 mg Orally Once a day 1 tablet 24h Active Flonase 50 mcg/actuation inhale 1 spray (50 mcg) in each nostril by intranasal route 2 times per day Nov, Active Omeprazole 40 MG Orally Once a day 1 tablet 24h 0 da ys Active Tessalon Perles 100 mg Orally Three [...]
--- OUTSIDE RECORDS SUMMARY | 2019-11-29 09:48 | XMS REPORT ---
Author Curt Hess [facility] eClinicalWorks Address Unknown Phone Unavailable Care Team Providers Care Photographer News Name Role Phone CHRIS DIAZ CP Unavailable Allergies No Known Allergies Problems Problem Type Condition Code Onset Dates Condition Statu s Problem Hyperlipemia E78.5 Active Assessment Type II diabetes mellitus E11.9 Ac tive Problem Renal insufficiency N28.9 Active Problem Type II diabetes mellitus E11.9 Ac tive Problem Edema R60.9 Active Problem Insomnia G47.00 Active Problem Major depression F32.9 Active Problem Morbid obesity E66.01 Active Problem Benign essential hypertension I10 Active Medications No Known Medications Results No Known Results Summary Purpose eClinicalWorks Submission
--- OUTSIDE RECORDS SUMMARY | 2019-11-29 09:49 | XMS REPORT ---
Author Author Curt REBOLLAR Organization [facility] Address [address] [place] [address] Care Team Providers Care Group Marketing Vp Name Role Phone QUINTIN REBOLLAR Unavailable PROBLEMS Type Condition ICD9-CM Code [id number] Code Onset Dates Condition S tatus SNOMED Code Problem Insomnia G47.00 Active 595471327 Problem Morbid obesity E66.01 Active 72824 6002 Problem Benign essential hypertension I10 Active 6321360 Problem Hyperlipemia E78.5 Active 5327640 4 Problem Major depression F32.9 Active 370 546091 Problem Acute bacterial conjunctivitis of left eye H10.32 Active 753327147 Problem Recurrent major depressive disorder, in partial remission F33.41 Active 73549811 Problem Renal insufficiency N28.9 Active 618571787 Problem Type II diabetes mellitus E11.9 Acti ve 59507243 Problem Callus of foot L84 Active 81873 1005 Problem Edema R60.9 Active 473838258 ALLERGIES Substance Reaction Event Type Date Status Wheat throat swells Non Drug Allergy May, Active Egg White throat swells Non Drug Allergy May, Active Cows Milk throat swells Non Drug Allergy May, Active Peanuts throat swells Non Drug Allergy May, Active Tenerius Uncertain throat swells Non Drug Allergy May, Active Brawley throat swells Non Drug Allergy May, Active Ragweed throat swells Non Drug Allergy May, Active SOCIAL HISTORY No smoking Hx information available PLAN OF CARE Activity Details Follow Up 4 Weeks Reason:Depression, W eight loss VITAL SIGNS MEDICATIONS Unknown Medications RESULTS No Results PROCEDURES Procedure Date Ordered Related Diagnosis Body Site Psychotherapy, patient &/family, 30 minutes, established patient Jun 08, 2016 IMMUNIZATIONS No Known Immunizations
--- OUTSIDE RECORDS SUMMARY | 2019-11-29 09:49 | XMS REPORT ---
Author Author Curt DIAZ 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 Name Role Phone JOE CHRIS Unavailable PROBLEMS Type Condition ICD9-CM Code LJI76-OD Code Onset Dates Condition S tatus SNOMED Code Problem Renal insufficiency N28.9 Active 650388512 Problem Callus of foot L84 Active 13421 1005 Problem Edema R60.9 Active 782114084 Problem Vitamin D deficiency E55.9 Active 96484126 Problem Anxiety F41.9 Active 55441858 Problem Acute bacterial conjunctivitis of left eye H10.32 Active 360416763 Problem Recurrent major depressive disorder, in partial remission F33.41 Active 13497926 Problem Severe episode of recurrent major depressive disorder, without psychotic features F33.2 Active 61611162 Problem Metabolic syndrome E88.81 Active 2 96790194 Problem Hyperlipemia E78.5 Active 1954446 4 Problem Type II diabetes mellitus E11.9 Acti ve 51482825 Problem Insomnia G47.00 Active 654548545 Problem Morbid obesity E66.01 Active 39019 6002 Problem Major depression F32.9 Active 370 353575 Problem Benign essential hypertension I10 Active 3154372 ALLERGIES Substance Reaction Event Type Date Status Egg White throat swells Non Drug Allergy Feb, Active Cows Milk throat swells Non Drug Allergy Feb, Active Wheat throat swells Non Drug Allergy Feb, Active Peanuts throat swells Non Drug Allergy Feb, Active Tenerius [place] throat swells Non Drug Allergy Feb, Active Fulton throat swells Non Drug Allergy Feb, Active Ragweed throat swells Non Drug Allergy Feb, Active ENCOUNTERS Encounter Location Date Diagnosis [facility] [address] [facility] [id number] [address] [place] [address] October, [facility] [address] [facility] [id number], [place] [id number] Sep, [facility] [address] [facility] [address] [id number], [place] [id number] Sep, [facility] [address] [id number], [place] [id number] Sep, [facility] [id number][place] [id number] Sep, Hospital discharge follow-up Z09 ; Aller gic rhinitis, unspecified seasonality, unspecified trigger J30.9 and Shortness of breath R06.[address] [id number], [place] [id number] Sep, Recurrent major depressive disorder, in partial remission F33.41 [facility] [id number], [place] [id number] Aug, Irritable mood R45.4 [place] [id number] [place] [address] Aug, [facility] [id number], [place] [id number] Jul, Benign essential hypertension I10 ; Robert a R60.9 and Impacted cerumen of left ear H61.22 [place] [address] [place] [id number] [address] [place] [address] Jul, Major depression F32.9 ; Rec urrent major depressive disorder, in partial remission F33.41 and Anxiety F41.9 [place] [address] [facility] [id number] [address] [place] [address] Jun, Major depression F32.9 ; Rec urrent major depressive disorder, in partial remission F33.41 and Anxiety F41.[address] [id number], [place] [id number] Jun, Major depression F32.9 ; Morbid obesity E66.01 ; Irritable mood R45.4 ; Hand weakness R29.898 and Vitamin D deficiency E55.9 [facility] [address] [id number], [place] [id number] Jun, [facility] [address] [id number], [place] [id number] May, Major depression F32.9 [facility] [address] [facility] [id number] [address] [place] [address] May, Major depression F32.9 [facility] [address] [id number], [place] [id number] May, BMI 50.0-59.9, adult Z68.43 ; Major depr ession F32.9 ; Anxiety F41.9 ; Hypertrophic toenail L60.2 and Pain of left great toe M79.675 [facility] [address] [id number], [place] [id number] May, Recurrent major depressive disorder, in partial remission F33.41 [place] [address] [place] [id number] [address] [place] [address] Apr, [facility] [id number] [place] [id number] Apr, [facility] [address] [facility] [id number] [address] [place] [address] Apr, Major depression F32.9 [facility] [id number] [place] [address] [id number] Apr, Severe episode of recurrent major depres sive disorder, without psychotic features F33.2 ; Anxiety F41.9 and Insomnia G47.00 [facility] [id number] [place] [address] [id number] Apr, [facility] [address] [facility] [id number] [address] [place] [address] Apr, [facility] [address] [id number], [place] [id number] Apr, [facility] [address] [id number], [place] [id number] Mar, [facility] [address] [id number], [place] [id number] Mar, Allergic conjunctivitis of both eyes H10 .13 [facility] [address] [facility] [id number] [address] [place] [address] Mar, Major depression F32.9 [facility] [id number] [place] [address] [id number] Mar, Metabolic syndrome E88.81 ; History of g astric bypass Z98.890 ; Benign essential hypertension I10 and Allergic conjunctivitis of both eyes H10.13 [facility] [address] [facility] [id number] [address] [place] [address] Mar, Major depression F32.9 [place] [id number] [facility] [id number] [place] [address] [id number] Feb, [facility] [address] [facility] [id number] [address] [place] [address] Feb, Major depression F32.9 [facility] [address] [facility] [address] [id number], [place] [id number] Feb, Subacute maxillary sinusitis J01.00 and Bronchitis J40 [facility] [address] [facility] [id number] [address] [place] [address] 06 Feb, 2017 Major depressive disorder, r ecurrent, moderate F33.1 [facility] [address] [id number], [place] [id number] Jan, [facility] [address] [id number], [place] [id number] Jan, Acute non-recurrent maxillary sinusitis J01.00 and Skin tag L91.8 [facility] [address] [id number], [place] [id number] Jan, Cough R05 and Sinus congestion R09.81 [facility] [address] [id number], [place] [id number] Jan, [facility] [address] [id number], [place] [id number] Jan, Benign essential hypertension I10 ; Hist ory of gastric bypass Z98.890 and Nausea and vomiting in adult R11.2 [place] [id number] [facility] [id number] [address] [place] [id number] 04 Jan, 2017 Major depressive disorder, r ecurrent, moderate F33.1 [place] [address] [facility] [id number] [address] [place] [address] Dec, Insomnia G47.00 ; Recurrent major depressive disorder, in partial remission F33.41 and Morbid obesity E66.01 [facility] [address] [id number], [place] [id number] Dec, [facility] [id number] [place] [address] [id number] Dec, Chronic bacterial conjunctivitis of left eye H10.[address] [id number], [place] [id number] Nov, [facility] [address] [id number], [place] [id number] Nov, Dental examination Z01.[address] [id number], [place] [id number] Nov, Benign essential hypertension I10 ; Hist ory of gastric bypass Z98.890 and Nausea and vomiting in adult R11.2 [place] [address] [facility] [id number] [address] [place] [address] 13 Nov, 2016 Major depressive disorder, r ecurrent, moderate F33.1 ; Generalized anxiety disorder F41.1 and Insomnia due to other mental disorder F51.05 [place] [address] [facility] [id number] [address] [place] [address] 12 Nov, 2016 Recurrent major depressive d isorder, in partial remission F33.41 ; Insomnia G47.00 and Morbid obesity E66.[address] [id number] Kiesha ESCOBEDO S [id number] October, Abscess of left arm L02.414 [place] [address] [place] [id number] [address] [place] [address] October, Morbid obesity E66.01 ; Lida r depression F32.9 and Recurrent major depressive disorder, in partial remission F33.41 [facility] [address] [id number], [place] [id number] Sep, Benign essential hypertension I10 ; Morb id obesity E66.01 ; S/P gastric bypass Z98.84 ; Abscess L02.91 and Chronic bacterial conjunctivitis of left eye H10.[id number] [place] [address] [id number] Sep, Dental examination Z01.20 [place] [address] [place] [address] Sep, Morbid obesity E66.01 ; Lida r depression F32.9 and Recurrent major depressive disorder, in partial remission F33.41 [place] [address] [place] [address] Jul, [place] [address] [place] [id number] [address] [place] [address] Jul, Major depressive disorder, r ecurrent, moderate F33.1 [place] [address] [place] [id number] [address] [place] [address] Jul, Major depressive disorder, r ecurrent, moderate F33.1 and Generalized anxiety disorder F41.1 [facility] [address] [id number], [place] [id number] Jul, Cough R05 [place] [address] [facility] [id number] [address] [place] [address] 16 Jul, 2016 Morbid obesity E66.01 ; Lida r depression F32.9 and Recurrent major depressive disorder, in partial remission F33.[address] [facility] [address] [id number], [place] [id number] Jul, [facility] [address] [id number], [place] [id number] Jul, [facility] [address] [id number], [place] [id number] Jul, Gastroenteritis K52.9 and Cough R05 [facility] [address] [facility] [id number] [place] [address] [id number] Jun, Acute bacterial conjunctivitis of left e ye H10.32 [facility] [address] [facility] [id number] [address] [place] [address] Jun, [facility] [address] [place] [id number] [address] [place] [address] Jun, Recurrent major depressive d isorder, in partial remission F33.41 [facility] [address] [place] [id number] [address] [place] [address] May, Major depression F32.9 and M orbid obesity E66.01 [facility] [address] [facility] [id number] [address] [place] [address] May, [facility] [address] [facility] [address] [id number], [place] [id number] May, Thrush B37.0 [facility] [address] [facility] [id number] [address] [place] [address] Apr, Major depressive disorder, r ecurrent, moderate F33.1 [facility] [address] [facility] [id number] [address] [place] [address] Apr, Insomnia G47.00 ; Major depr ession F32.9 and Recurrent major depressive disorder, in partial remission F33.41 [facility] [address] [facility] [id number] [address] [place] [address] Apr, [facility] [address] [facility] [id number] [address] [place] [address] Apr, Major depression F32.9 and R ecurrent major depressive disorder, in partial remission F33.41 [facility] [address] [id number], [place] [id number] Mar, Benign essential hypertension I10 ; Morb id obesity E66.01 ; Impacted cerumen of both ears H61.23 ; Laceration of finger of right hand, initial encounter S61.219A and Encounter for immunization Z23 [facility] [address] [facility] [id number] [address] [place] [address] Mar, [facility] [address] [facility] [id number] [address] [place] [address] Mar, [facility] [address] [facility] [id number] [address] [place] [address] Mar, [address] [id number], [place] [id number] Feb, Nausea R11.0 ; Blood in the stool K92.1 and Benign essential hypertension I10 [facility] [address] [facility] [id number] [address] [place] [address] Feb, Major depression F32.9 and R ecurrent major depressive disorder, in partial remission F33.41 [facility] [address] [id number], [place] [id number] Feb, [facility] [address] [id number], [place] [id number] Feb, Recurrent major depressive disorder, in partial remission F33.41 [facility] [address] [id number], [place] [id number] Jan, [facility] [place] [address] [id number], [place] [id number] Jan, Benign essential hypertension I10 ; Robert a R60.9 and Hyperlipidemia, unspecified hyperlipidemia type E78.5 [facility] [address] [id number], [place] [id number] Jan, Recurrent major depressive disorder, in partial remission F33.41 [facility] [address] [id number] Kiesha ESCOBEDO S [id number] Jan, [facility] [address] [id number], [place] [id number] Jan, [facility] [address] [id number], [place] [id number] Jan, [facility] [address] [facility] [id number] [address] [place] [address] Jan, [facility] [address] [facility] [id number] [address] [place] [address] Dec, [facility] [address] [facility] [id number] [address] [place] [address] Nov, [facility] [address] [facility] [id number] [address] [place] [address] Nov, Major depression F32.9 [facility] [address] [facility] [id number] [address] [place] [address] Nov, [facility] [address] [facility] [id number] [address] [place] [address] Nov, [facility] [address] [facility] [id number] [address] [place] [address] Nov, Major depressive disorder, r ecurrent episode, mild F33.0 and Anxiety F41.9 [facility] [address] [id number], [place] [id number] Nov, [facility] [address] [id number], [place] [id number] October, Left elbow pain M25.522 and Other season al allergic rhinitis J30.2 [facility] [address] [id number], [place] [id number] October, [facility] [address] [facility] [id number] [address] [place] [address] October, Major depressive disorder, r ecurrent, moderate F33.1 [facility] [address] [facility] [id number] [address] [place] [address] October, Major depression F32.9 [facility] [address] [id number] [address] [place] [address] Sep, Richards or callus L84 and Onych omycosis B35.1 [facility] [address] [facility] [id number] [address] [place] [address] Sep, Major depressive disorder, r ecurrent, moderate F33.1 [facility] [address] [facility] [id number] [address] [place] [address] Sep, Major depression F32.9 [facility] [address] [facility] [id number] [address] [place] [address] Sep, Moderate episode of recurren t major depressive disorder F33.1 [facility] [id number] [place] [address] [id number] Sep, Muscle strain T14.8 [facility] [address] [facility] [id number] [address] [place] [address] Aug, Major depression F32.9 [facility] [address] [facility] [id number] [address] [place] [address] Aug, Major depression F32.9 [facility] [address] [facility] [id number] [address] [place] [address] Jul, Morbid obesity E66.01 and Ma cora depression F32.9 [facility] [address] [id number] [address] [place] [address] Jul, Depression, major, recurrent , moderate F33.1 [facility] [address] [id number], [place] [id number] Jul, [facility] [address] [facility] [id number] [address] [place] [address] Jul, [facility] [address] [facility] [id number] [address] [place] [address] 16 Jul, 2015 Major depression F32.9 and M orbid obesity E66.[address] [id number] [place] [address] [id number] 11 Jul, 2015 Type II diabetes mellitus E11.9 ; Callus of foot L84 ; Benign essential hypertension I10 and Renal insufficiency N28.9 [place] [address] [facility] [id number] [address] [place] [address] 09 Jul, 2015 Depression, major, recurrent , moderate F33.1 [place] [address] [facility] [id number] [address] [place] [address] Jul, Major depression F32.9 [place] [address] [facility] [id number] [address] [place] [address] Jul, [place] [address] [facility] [id number] [address] [place] [address] Jun, Major depression F32.9 [place] [address] [facility] [id number] [address] [place] [address] Jun, Major depressive disorder, r ecurrent, moderate F33.1 [place] [address] [facility] [id number] [address] [place] [address] Jun, [place] [address] [facility] [id number] [address] [place] [address] Jun, Major depressive disorder, r ecurrent, moderate F33.1 and Major depression F32.[address] [id number], [place] [id number] Jun, Type II diabetes mellitus E11.9 [place] [address] [facility] [id number] [address] [place] [address] Jun, Depression, major, recurrent , moderate F33.1 [place] [address] [facility] [id number] [address] [place] [address] May, Major depressive disorder, r ecurrent, moderate F33.1 [facility] [address] [facility] [id number] [address] [place] [address] May, [address] [id number] [place] [address] [id number] May, Edema R60.9 [facility] [address] [facility] [id number] [address] [place] [address] 17 May, 2015 Insomnia G47.00 and Major de pression F32.[address] [id number] [place] [address] [id number] 15 May, 2015 Morbid obesity E66.01 ; Edema R60.9 ; Sh ortness of breath R06.02 ; Benign essential hypertension I10 and Renal insufficiency N28.[address] [id number] [place] [address] [id number] 14 May, 2015 Hyperlipemia 272.4 and Renal insufficien cy N28.9 [place] [address] [facility] [id number] [address] [place] [address] Apr, Major depression F32.9 [place] [id number] [facility] [id number] [address] [place] [address] Apr, [place] [address] [place] [id number] [address] [place] [address] Apr, Major depressive disorder, r ecurrent, moderate F33.[address] [id number] [place] [address] [id number] Apr, Type II diabetes mellitus E11.9 ; Benign essential hypertension I10 ; Edema R60.9 and Renal insufficiency N28.9 [facility] [address] [facility] [id number] [address] [place] [address] Mar, Major depressive disorder, r ecurrent, moderate F33.1 [place] [address] [facility] [id number] [address] [place] [address] Mar, [facility] [address] [facility] [id number] [address] [place] [address] Mar, Major depression F32.9 [facility] [address] [id number], [place] [id number] Mar, Morbid obesity E66.01 ; Benign essential hypertension I10 and Type II diabetes mellitus E11.9 [place] [address] [place] [id number] [address] [place] [address] Feb, Major depressive disorder, r ecurrent, moderate F33.1 [place] [address] [place] [id number] [address] [place] [address] Feb, Major depressive disorder, r ecurrent episode, in partial or unspecified remission 296.35 ; Anxiety state, unspecified 300.00 and Morbid obesity 278.01 [place] [address] [place] [id number] [address] [place] [address] Feb, [address] [id number] [place] [address] [id number] 16 Feb, 2015 Vomiting 787.03 and Viral syndrome 079.9 [address] [place] [id number] [address] [place] [address] 15 Feb, 2015 Major depression, recurrent 296.30 ; Generalized anxiety disorder 300.02 and No condition on Hardesty II V71.[id number] [place] [address] [id number] 03 Feb, 2015 Skin tag 701.9 [place] [id number] [address] [place] [address] Feb, [address] [id number] [address] [place] [address] Jan, Depression, major, recurrent , moderate [address] [place] [id number] [place] [id number] Jan, Nausea and vomiting 787.01 ; Rib pain on right side 786.50 and Fall on or from sidewalk curb E880.1 [place] [address] [address] [facility] [id number] [address] [place] [phone] Jan, [facility] [address] [facility] [id number] [address] [place] [id number] Jan, Major depressive disorder, r ecurrent episode, in partial or unspecified remission 296.35 and Anxiety state, unspecified 300.[address] [id number] [id number] Jan, [facility] [address] [place], [place] [id number] [address] [place] [phone] Jan, Depression, major, recurrent , moderate 296.32 [place] [id number] [address] [place] [id number] Jan, Major depression, recurrent 296.30 ; No condition on Hardesty II V71.09 and No condition on axis III V71.[address] [id number] [id number] Jan, Drug-induced nausea and vomiting 787.01 [place] [id number] [address] [place] [address] Jan, Depression, major, recurrent , moderate 296.32 [place] [id number] [address] [place] [phone] Dec, Depression, major, recurrent , moderate 296.[address] [id number] [id number] Dec, Morbid obesity 278.01 ; Metabolic syndro me 277.7 ; Hyperlipemia 272.4 ; Benign essential hypertension 401.1 ; Dietary counseling V65.3 ; Exercise counseling V65.41 and Inflamed skin tag 701.9 [place] [id number] [address] [place] [phone] Dec, Depression, major, recurrent , moderate 296.32 [place] [id number] [address] [place] [id number] Dec, [place] [id number] [address] [place] [phone] Dec, Major depression, recurrent 296.30 ; Anxiety, generalized 300.02 and No condition on Hardesty II V71.09 [place] [address] [address] Dec, Depression, major, recurrent , moderate 296.32 [place] [address] [address] Dec, Major depressive disorder, r ecurrent episode, moderate 296.32 [place] [address] [address] Dec, Depression, major, recurrent , moderate 296.32 [place] [address] [address] Dec, Depression, major, recurrent , moderate 296.[address] [address] Dec, Depression, major, recurrent , moderate 296.32 [place] [address] [address] Dec, Depression, major, recurrent , moderate 296.32 [place] [address] [address] Nov, Depression, major, recurrent , moderate 296.32 [place] [address] [address] Nov, Major depression 296.20 ; So cial phobia 300.23 and No condition on Hardesty II V71.09 [place] [address] [address] Nov, Depression, major, recurrent , moderate 296.32 [place] [address] [address] [place] [id number] Nov, Major depressive disorder, r ecurrent episode, moderate 296.32 and Generalized anxiety disorder 300.02 [place] [address] [address] 09 Nov, 2014 Depression, major, recurrent , moderate 296.32 [facility] [address] [id number] [address] [place] [address] 04 Nov, 2014 Depression, major, recurrent , moderate 296.32 [facility] [address] [facility] [id number] [address] [place] [address] October, Generalized anxiety disorder 300.02 ; No condition on Hardesty II V71.09 and Major depressive disorder, recurrent 296.30 [facility] [address] [id number] [address] [place] [address] 14 Sep, 2014 [facility] [address] [id number] [address] [place] [address] Sep, [facility] [address] [facility] [id number] [address] [place] [address] 24 Aug, 2014 [facility] [address] [id number] [address] [place] [address] 24 Aug, 2014 [facility] [address] [id number] [address] [place] [address] Aug, [facility] [address] [id number] [address] [place] [id number] 23 Aug, 2014 [facility] [address] [id number] [address] [place] [id number] 20 Aug, 2014 [facility] [address] [id number] [address] [place] [id number] 20 Aug, 2014 [facility] [address] [id number] [address] [place] [id number] 20 Aug, 2014 [facility] [address] [id number] [address] [place] [address] 20 Aug, 2014 [facility] [address] [id number] [address] [place] [id number] 13 Aug, 2014 [facility] [address] [id number] [address] [place] [id number] 13 Aug, 2014 [facility] [address] [id number] [address] [place] [address], [place] [address] 13 Aug, 2014 [facility] [place] [facility] [address] [id number] [address] [place] [address], [place] [address] Aug, [facility] [place] [facility] [address] [id number] [address] [place] [address], [place] [address] Aug, [facility] [place] [facility] [address] [id number] [address] [place] [address], [place] [address] Aug, [facility] [place] [facility] [address] [id number] [address] [place] [address], [place] [address] Aug, [facility] [place] [facility] [address] [id number] [address] [place] [address], [place] [address] Aug, [facility] [place] [facility] [address] [id number] [address] [place] [address], [place] [address] Aug, [facility] [place] [facility] [address] [id number] [address] [place] [address], [place] [address] Aug, [facility] [place] [facility] [address] [id number] [address] [place] [address], [place] [address] Jul, [facility] [place] [facility] [address] [id number] [address] [place] [address], [place] [address] Jul, [facility] [place] [facility] [address] [id number] [address] [place] [address], [place] [address] Jul, 2014 [facility] [place] [facility] [address] [id number] [address] [place] [address], [place] [address] Jul, 2014 [facility] [place] [facility] [address] [id number] [address] [place] [address], [place] [address] Jul, [facility] [place] [facility] [address] [id number] [address] [place] [address], [place] [address] Jul, [facility] [place] [facility] [address] [id number] [address] [place] [address], [place] [address] Jun, [facility] [place] [facility] [address] [id number] [address] [place] [address], [place] [address] Jun, [facility] [address] [id number] [address] [place] [address], [place] [address] Jun, [facility] [address] [id number] [address] [place] [address], [place] [address] Jun, [facility] [address] [id number] [address] [place] [address], [place] [address] Jun, [facility] [address] [id number] [address] [place] [address], [place] [address] Jun, [facility] [address] [id number] [address] [place] [address], [place] [address] Jun, [facility] [address] [id number] [address] [place] [address], [place] [address] Jun, [facility] [address] [id number] [address] [place] [address], [place] [address] Jun, [facility] [address] [id number] [address] [place] [address], [place] [address] Jun, [facility] [address] [id number] [address] [place] [address], [place] [address] Jun, [facility] [address] [id number] [address] [place] [address], [place] [address] Jun, [facility] [place] [address] [id number] [place] [id number] Jun, [facility] [address] [id number] [address] [place] [address], [place] [address] Jun, [facility] [address] [id number] [address] [place] [address], [place] [address] Jun, [facility] [address] [id number] [address] [place] [address], [place] [address] Jun, [facility] [address] [id number] [address] [place] [address], [place] [address] May, [facility] [address] [id number] [address] [place] [address], [place] [address] May, [facility] [place] [facility] [address] [id number] [address] [place] [address], [place] [address] May, [facility] [place] [facility] [address] [id number] [address] [place] [address], [place] [address] May, [facility] [place] [facility] [address] [id number] [address] [place] [address], [place] [address] Apr, [facility] [place] [facility] [address] [id number] [address] [place] [address], [place] [address] Apr, [facility] [place] [facility] [address] [id number] [address] [place] [address], [place] [address] Apr, [facility] [place] [facility] [address] [id number] [address] [place] [address], [place] [address] Apr, [facility] [place] [facility] [address] [id number] [address] [place] [address], [place] [address] Apr, [facility] [place] [facility] [address] [id number] [address] [place] [address], [place] [address] Apr, [facility] [place] [facility] [address] [id number] [address] [place] [address] Apr, [facility] [place] [facility] [address] [id number] [address] [place] [address] Apr, [facility] [place] [facility] [address] [id number] [address] [place] [address] Apr, [facility] [place] [facility] [address] [id number] [address] [place] [address], [place] [address] Apr, [facility] [place] [facility] [address] [id number] [address] [place] [address], [place] [address] Apr, [facility] [place] [facility] [address] [id number] [address] [place] [address] Apr, [facility] [place] [facility] [address] [id number] [address] [place] [address] Apr, [facility] [place] [facility] [address] [id number] [address] [place] [address], [place] [address] Apr, [facility] [place] [facility] [address] [id number] [address] [place] [address], [place] [address] Apr, [facility] [place] [facility] [address] [id number] [address] [place] [address], [place] [address] Apr, [facility] [place] [facility] [address] [id number] [address] [place] [address], [place] [address] Apr, [facility] [place] [facility] [address] [id number] [address] [place] [address], [place] [address] Apr, [facility] [place] [facility] [address] [id number] [address] [place] [address], [place] [address] Apr, [facility] [place] [facility] [address] [id number] [address] [place] [address], [place] [address] Apr, [facility] [place] [facility] [address] [id number] [address] [place] [address], [place] [address] Mar, [facility] [place] [facility] [address] [id number] [address] [place] [address] Mar, [facility] [place] [facility] [address] [id number] [address] [place] [address] Mar, [facility] [place] [facility] [address] [id number] [address] [place] [id number] Mar, [facility] [place] [facility] [address] [id number] [address] [place] [address] Mar, [facility] [place] [facility] [address] [id number] [address] [place] [address] Mar, [facility] [place] [facility] [address] [id number] [address] [place] [address], [place] [address] Mar, [facility] [place] [facility] [address] [id number] [address] [place] [address], [place] [address] Mar, [facility] [place] [facility] [address] [id number] [facility] [place] [place] [address] Mar, [facility] [place] [facility] [address] [id number] [address] [place] [address], [place] [address] Mar, [facility] [place] [facility] [address] [id number] [facility] [place] [place] [address] Feb, [facility] [place] [facility] [address] [id number] [address] [place] [address], [place] [address] Feb, [facility] [place] [facility] [address] [id number] [address] [place] [address], [place] [address] Feb, [facility] [place] [facility] [address] [id number] [address] [place] [address], [place] [address] Feb, [facility] [place] [facility] [address] [id number] [address] [place] [address], [place] [address] Jan, [facility] [place] [facility] [address] [id number] [address] [place] [address], [place] [address] Jan, [facility] [place] [facility] [address] [id number] [address] [place] [address], [place] [address] Jan, [facility] [place] [facility] [address] [id number] [address] [place] [address], [place] [address] Jan, [facility] [place] [facility] [address] [id number] [address] [place] [address], [place] [address] Jan, [facility] [place] [facility] [address] [id number] [address] [place] [address], [place] [address] Jan, [facility] [place] [facility] [address] [id number] [address] [place] [address], [place] [address] Dec, [facility] [place] [facility] [address] [id number] [address] [place] [address], [place] [address] Dec, [facility] [place] [facility] [address] [id number] [address] [place] [address], [place] [address] Nov, [facility] [place] [facility] [address] [id number] [address] [place] [address], [place] [address] Nov, [facility] [address] [id number] [facility] [place] [address] Nov, [facility] [place] [facility] [address] [id number] [facility] [place] [address] Nov, [facility] [address] [id number] [facility] [place] [address] Nov, [facility] [place] [facility] [address] [id number] [address] [place] [address], [place] [address] Nov, [facility] [address] [id number] [address] [place] [address], [place] [address] Sep, [facility] [address] [id number] [address] [place] [address], [place] [address] Sep, [facility] [address] [id number] [address] [place] [address], [place] [address] Sep, [facility] [address] [id number] [address] [place] [address], [place] [address] Sep, [facility] [address] [id number] [address] [place] [address], [place] [address] Aug, [facility] [place] [facility] [address] [id number] [address] [place] [address], [place] [address] Aug, [facility] [place] [facility] [address] [id number] [address] [place] [address], [place] [address] Jul, [facility] [place] [facility] [address] [id number] [address] [place] [address], [place] [address] Jul, [facility] [place] [facility] [address] [id number] [address] [place] [address], [place] [address] Jun, [facility] [place] [facility] [address] [id number] [address] [place] [address], [place] [address] Jun, [facility] [place] [facility] [address] [id number] [address] [place] [address], [place] [address] Jun, [facility] [place] [facility] [address] [id number] [place] [address] 16 Jun, 2013 [facility] [address] [id number] [address] [place] [address], [place] [address] May, [facility] [address] [id number] [address] [place] [address], [place] [address] May, [facility] [address] [id number] [address] [place] [address], [place] [address] May, [facility] [address] [id number] [address] [place] [address], [place] [address] May, [facility] [address] [id number] [address] [place] [address], [place] [address] May, [facility] [address] [id number] [address] [place] [address], [place] [address] May, [facility] [address] [id number] [address] [place] [address], [place] [address] Apr, [facility] [address] [id number] [address] [place] [address], [place] [address] Apr, [facility] [address] [id number] [address] [place] [address], [place] [address] Apr, [facility] [address] [id number] [address] [place] [address], [place] [address] Apr, [facility] [address] [id number] [address] [place] [address], [place] [address] Mar, [facility] [address] [id number] [address] [place] [address], [place] [address] Mar, [facility] [address] [id number] [address] [place] [address], [place] [address] Mar, [facility] [address] [id number] [address] [place] [address], [place] [address] Mar, [facility] [address] [id number] [address] [place] [address], [place] [address] Feb, [facility] [address] [id number] [id number] Jan, [facility] [address] [id number] [address] [place] [address], [place] [address] Jan, [facility] [address] [id number] [address] [place] [address], [place] [address] Dec, [facility] [address] [id number] [address] [place] [address], [place] [address] Dec, [facility] [address] [id number] [address] [place] [address], [place] [address] Dec, [facility] [address] [id number] [place] [id number] Dec, [facility] [address] [id number] [address] [place] [address], [place] [address] Nov, [facility] [address] [id number] [address] [place] [address] Nov, [facility] [address] [id number] [address] [place] [address] Nov, [facility] [address] [id number] [address] [place] [address], [place] [address] Nov, [facility] [address] [id number] [address] [place] [address], [place] [address] Nov, [facility] [address] [id number] [address] [place] [address] October, [facility] [address] [id number] [address] [place] [address] October, [facility] [address] [id number] [address] [place] [address] Aug, [facility] [address] [id number] [address] [place] [id number] 13 Nov, 2011 IMMUNIZATIONS No Known Immunizations SOCIAL HISTORY Never Assessed REASON FOR VISIT congestion, cough for 1 week. 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 Activity Details Follow Up 1 Week Reason:if s/s not imp roved VITAL SIGNS Height 71.5 in 2017-02-20 Weight 379.0 lbs 2017-02-20 Temperature 96.6 degrees Fahrenheit 2017-02-20 Heart Rate 82 bpm 2017-02-20 Respiratory Rate 18 2017-02-20 Oximetry 97 % 2017-02-20 BMI 52.12 kg/m2 2017-02-20 Blood pressure systolic 138 mmHg 2017-02-20 Blood pressure diastolic 88 mmHg 2017-02-20 MEDICATIONS Medication Instructions Dosage Frequency Start Date End Date Duration S tatus Flonase 50 mcg/act nasally once per day 1 spray (50 mcg) in each nostril by intranasal route 2 times per day Nov, Active Trazodone HCl 50 mg Orally Once a day 1 tablet at bedtime 24h Nov Active Omeprazole 40 MG Orally Once a day 1 tablet 24h 0 da ys Active Zofran 8 MG Orally Once a day 1 tablet 24h A ctive Lisinopril 40 mg Orally Once a day 1 tablet 24h Active Tessalon Perles 100 mg Orally Three times a day 1 capsule as needed 8h Jul, 07 days Active Trintellix 20 mg TAKE 1 TABLET BY MOUTH ONCE DAILY 30 days Active Montelukast Sodium 10 MG TAKE ONE TABLET BY MOUTH DAILY Active Centrum - Active Atenolol 100 mg Orally Once a day 1 tablet 24h Active Flovent HFA 110 mcg/actuation inhalation once per day 1-3 Puffs 1 time per day October, 0 Active Augmentin 875-125 MG Orally every 12 hrs 1 tablet 12h Feb, 017 Feb, 10 day(s) Active Cetirizine HCl 10 mg Orally Once a day 1 tablet 24h Active Vitamin D-3 1000 UNIT Orally Once a day 2 capsule 24h Active Ondansetron HCl 4 MG Take [...]
--- OUTSIDE RECORDS SUMMARY | 2019-11-29 09:49 | XMS REPORT | Continuity of Care Document ---
Author Organization Unknown Address Unknown Phone Unavailable Allergies Active Description Code Type Severity Reaction Onset Reported/Identified Relationship to Patient Clinical Status Yes No Known Drug Allergies [id number] Drug Allergy Unknown N/A 11/11/2019 Medications There is no data. Problems Date Dx Coded Attending Type Code Diagnosis Diagnosed By 11/23/2011 780.52 INS OMNIA UNSPECIFIED 11/23/2011 780.52 ins omnia 11/23/2011 780.52 ins omnia 11/23/2011 MERCED CHANDLER MD 780. 52 insomnia 11/23/2011 MERCED CHANDLER MD 780. 52 insomnia 11/23/2011 RINA DIEZ DO 780.52 insomnia 11/23/2011 CHRIS DIAZ APRN 780.52 insomnia 11/23/2011 CHRIS DIAZ APRN 780.52 insomnia 11/23/2011 CHRIS DIAZ APRN 780.52 insomnia 11/23/2011 CHRIS DIAZ APRN 780.52 insomnia 11/23/2011 YAZAN AL RN 780. 52 insomnia 11/23/2011 YAZAN AL RN 780. 52 insomnia 11/23/2011 RINA DIEZ DO 780.52 insomnia 11/23/2011 YAZAN AL RN 780. 52 insomnia 11/23/2011 YAZAN AL RN 780. 52 insomnia 11/23/2011 YAZAN AL RN 780. 52 insomnia 11/23/2011 CHRIS DIAZ APRN 780.52 insomnia 11/23/2011 CHRIS DIAZ APRN 780.52 insomnia 11/23/2011 RINA DIEZ DO 780.52 insomnia 11/23/2011 SUNIL HEALY APRN 780.52 insomnia 11/23/2011 YAZAN AL RN 780. 52 insomnia 11/23/2011 ARLEN GARCIAS APRN 780 .52 insomnia 11/23/2011 QUINTIN OJNES 780.52 insomnia 11/23/2011 MIKAELA MELLO YAZAN E 780. 52 insomnia 10/23/2012 278.01 OBE SITY MORBID 10/23/2012 401.1 ESSE NTIAL HYPERTENSION BENIGN 10/23/2012 724.1 midb ack pain 10/23/2012 787.91 emmy rrhea 10/23/2012 278.01 OBE SITY MORBID 10/23/2012 401.1 ESSE NTIAL HYPERTENSION BENIGN 10/23/2012 724.1 midb ack pain 10/23/2012 787.91 emmy rrhea 10/23/2012 MERCED CHANDLER MD 278. 01 OBESITY MORBID 10/23/2012 MERCED CHANDLER MD 401. 1 ESSENTIAL HYPERTENSION BENIGN 10/23/2012 MERCED CHANDLER MD 724. 1 midback pain 10/23/2012 MERCED CHANDLER MD 787. 91 diarrhea 10/23/2012 MERCED CHANDLER MD 278. 01 OBESITY MORBID 10/23/2012 MERCED CHANDLER MD 401. 1 ESSENTIAL HYPERTENSION BENIGN 10/23/2012 MERCED CHANDLER MD 724. 1 midback pain 10/23/2012 MERCED CHANDLER MD 787. 91 diarrhea 10/23/2012 BILL DIEZ DOA K 278.01 OBESITY MORBID 10/23/2012 CHARY FLAHERTY RINA K 401.1 ESSENTIAL HYPERTENSION BENIGN 10/23/2012 BILL DIEZ DOA K 724.1 midback pain 10/23/2012 BILL DIEZ DOA K 787.91 diarrhea 10/23/2012 CHRIS DIAZ APRN 278.01 OBESITY MORBID 10/23/2012 CHRIS DIAZ APRN 401.1 ESSENTIAL HYPERTENSION BENIGN 10/23/2012 CHRIS DIAZ APRN 724.1 midback pain 10/23/2012 CHRIS DIAZ APRN 787.91 diarrhea 10/23/2012 CHRIS DIAZ APRN 278.01 OBESITY MORBID 10/23/2012 CHRIS DIAZ APRN 401.1 ESSENTIAL HYPERTENSION BENIGN 10/23/2012 CHRIS DIAZ APRN 724.1 midback pain 10/23/2012 CHRIS DIAZ APRN 787.91 diarrhea 10/23/2012 CHRIS DIAZ APRN 278.01 OBESITY MORBID 10/23/2012 DIAZ STAFF ASSISTANT, CHRIS J 401.1 ESSENTIAL HYPERTENSION BENIGN 10/23/2012 JOE ENGLEDonn CHRIS J 724.1 midback pain 10/23/2012 CHRIS DIAZ APRN J 787.91 diarrhea 10/23/2012 DIAZ RAN CHRIS J 278.01 OBESITY MORBID 10/23/2012 JOE ENGLEDonn CHRIS J 401.1 ESSENTIAL HYPERTENSION BENIGN 10/23/2012 DIAZ CHRIS TONG J 724.1 midback pain 10/23/2012 DIAZCHRIS MITTAL APRN J 787.91 diarrhea 10/23/2012 YAZAN AL RN 278. 01 OBESITY MORBID 10/23/2012 YAZAN AL RN 401. 1 ESSENTIAL HYPERTENSION BENIGN 10/23/2012 YAZAN AL RN E 724. 1 midback pain 10/23/2012 YAZAN AL RN E 787. 91 diarrhea 10/23/2012 YAZAN AL RN 278. 01 OBESITY MORBID 10/23/2012 YAZAN AL RN 401. 1 ESSENTIAL HYPERTENSION BENIGN 10/23/2012 YAZAN AL RN E 724. 1 midback pain 10/23/2012 YAZAN AL RN E 787. 91 diarrhea 10/23/2012 RINA DIEZ DO K 278.01 OBESITY MORBID 10/23/2012 RINA DIEZ DO K 401.1 ESSENTIAL HYPERTENSION BENIGN 10/23/2012 RINA DIEZ DO K 724.1 midback pain 10/23/2012 RINA DIEZ DO K 787.91 diarrhea 10/23/2012 YAZAN AL RN E 278. 01 OBESITY MORBID 10/23/2012 YAZAN AL RN E 401. 1 ESSENTIAL HYPERTENSION BENIGN 10/23/2012 YAZAN AL RN E 724. 1 midback pain 10/23/2012 YAZAN AL RN E 787. 91 diarrhea 10/23/2012 YAZAN AL RN E 278. 01 OBESITY MORBID 10/23/2012 YAZAN AL RN E 401. 1 ESSENTIAL HYPERTENSION BENIGN 10/23/2012 YAZAN AL RN E 724. 1 midback pain 10/23/2012 YAZAN AL RN E 787. 91 diarrhea 10/23/2012 YAZAN AL RN E 278. 01 OBESITY MORBID 10/23/2012 YAZAN AL RN E 401. 1 ESSENTIAL HYPERTENSION BENIGN 10/23/2012 YAZAN AL RN E 724. 1 midback pain 10/23/2012 MIKAELA MELLO, YAZAN E 787. 91 diarrhea 10/23/2012 CHRIS DIAZ APRN 278.01 OBESITY MORBID 10/23/2012 CHRIS DIAZ APRN J 401.1 ESSENTIAL HYPERTENSION BENIGN 10/23/2012 CHRIS DIAZ APRN J 724.1 midback pain 10/23/2012 CHRIS DIAZ APRN J 787.91 diarrhea 10/23/2012 CHRIS DIAZ APRN 278.01 OBESITY MORBID 10/23/2012 CHRIS DIAZ APRN J 401.1 ESSENTIAL HYPERTENSION BENIGN 10/23/2012 CHRIS DIAZ APRN 724.1 midback pain 10/23/2012 CHRIS DIAZ APRN 787.91 diarrhea 10/23/2012 DIEZ DO RINA K 278.01 OBESITY MORBID 10/23/2012 DIEZ DO RINA K 401.1 ESSENTIAL HYPERTENSION BENIGN 10/23/2012 DIEZ DO RINA K 724.1 midback pain 10/23/2012 DIEZ DO RINA K 787.91 diarrhea 10/23/2012 SUNIL HEALY APRN N 278.01 OBESITY MORBID 10/23/2012 SUNIL HEALY APRN N 401.1 ESSENTIAL HYPERTENSION BENIGN 10/23/2012 SUNIL HEALY APRN N 724.1 midback pain 10/23/2012 SUNIL HEALY APRN N 787.91 diarrhea 10/23/2012 MIKAELA MELLO, YAZAN E 278. 01 OBESITY MORBID 10/23/2012 MIKAELA MELLO, YAZAN E 401. 1 ESSENTIAL HYPERTENSION BENIGN 10/23/2012 MIKAELA MELLO, YAZAN E 724. 1 midback pain 10/23/2012 MIKAELA MELLO, YAZAN E 787. 91 diarrhea 10/23/2012 ARLEN GARCIAS APRN 278 .01 OBESITY MORBID 10/23/2012 ARLEN GARCIAS APRN 401 .1 ESSENTIAL HYPERTENSION BENIGN 10/23/2012 GENIE GARCIAS APRNETTE 724 .1 midback pain 10/23/2012 DIETER TONG ARLEN 787 .91 diarrhea 10/23/2012 QUINTIN JONES 278.01 OBESITY MORBID 10/23/2012 KETURAH LIMAMF, QUINTIN W 401.1 ESSENTIAL HYPERTENSION BENIGN 10/23/2012 KETURAH LCMF, QUINTIN W 724.1 midback pain 10/23/2012 KETURAH LIMAMF, QUINTIN W 787.91 diarrhea 10/23/2012 MIKAELA MELLO, YAZAN Caceres 278. 01 OBESITY MORBID 10/23/2012 MIKAELA MELLO, YAZAN Caceres 401. 1 ESSENTIAL HYPERTENSION BENIGN 10/23/2012 YAZAN AL RN 724. 1 midback pain 10/23/2012 YAZAN AL RN 787. 91 diarrhea 11/26/2012 E887 FRACT URE CAUSE UNSPECIFIED 11/26/2012 MERCED CHANDLER MD E887 FRACTURE CAUSE UNSPECIFIED 11/26/2012 MERCED CHANDLER MD E887 FRACTURE CAUSE UNSPECIFIED 11/26/2012 RINA DIEZ DO E887 FRACTURE CAUSE UNSPECIFIED 11/26/2012 CHRIS DIAZ APRN E887 FRACTURE CAUSE UNSPECIFIED 11/26/2012 CHRIS DIAZ APRN E887 FRACTURE CAUSE UNSPECIFIED 11/26/2012 CHRIS DIAZ APRN E887 FRACTURE CAUSE UNSPECIFIED 11/26/2012 CHRIS DIAZ APRN E887 FRACTURE CAUSE UNSPECIFIED 11/26/2012 YAZAN AL RN E887 FRACTURE CAUSE UNSPECIFIED 11/26/2012 YAZAN AL RN E887 FRACTURE CAUSE UNSPECIFIED 11/26/2012 RINA DIEZ DO E887 FRACTURE CAUSE UNSPECIFIED 11/26/2012 YAZAN AL RN E887 FRACTURE CAUSE UNSPECIFIED 11/26/2012 YAZAN AL RN E887 FRACTURE CAUSE UNSPECIFIED 11/26/2012 YAZAN AL RN E887 FRACTURE CAUSE UNSPECIFIED 11/26/2012 CHRIS DIAZ APRN E887 FRACTURE CAUSE UNSPECIFIED 11/26/2012 CHRIS DIAZ APRN E887 FRACTURE CAUSE UNSPECIFIED 11/26/2012 RINA DIEZ DO E887 FRACTURE CAUSE UNSPECIFIED 11/26/2012 SUNIL HEALY APRN E887 FRACTURE CAUSE UNSPECIFIED 11/26/2012 YAZAN AL RN E887 FRACTURE CAUSE UNSPECIFIED 11/26/2012 ARLEN GARCIAS APRN E88 7 FRACTURE CAUSE UNSPECIFIED 11/26/2012 KETURAH LCMF, QUINTIN Singh E887 FRACTURE CAUSE UNSPECIFIED 11/26/2012 MIKAELA MELLO, YAZAN E E887 FRACTURE CAUSE UNSPECIFIED 12/24/2012 MERCED CHANDLER MD 272. 1 ESSENTIAL HYPERTRIGLYCERIDEMIA 12/24/2012 MERCED CHANDLER MD 277. 7 DYSMETABOLIC SYNDROME X 12/24/2012 MERCED CHANDLER MD 805. 2 FRACTURE OF THORACIC VERTEBRAL BODY WEDGE COMPRESSION 12/24/2012 MERCED CHANDLER MD 272. 1 ESSENTIAL HYPERTRIGLYCERIDEMIA 12/24/2012 MERCED CHANDLER MD 277. 7 DYSMETABOLIC SYNDROME X 12/24/2012 MERCED CHANDLER MD 805. 2 FRACTURE OF THORACIC VERTEBRAL BODY WEDGE COMPRESSION 12/24/2012 DIEZ DO, RINA K 272.1 ESSENTIAL HYPERTRIGLYCERIDEMIA 12/24/2012 DIEZ DO, RINA K 277.7 DYSMETABOLIC SYNDROME X 12/24/2012 DIEZ DO, RINA K 805.2 FRACTURE OF THORACIC VERTEBRAL BODY WEDGE COMPRESSION 12/24/2012 [place] DIAZ APRNFER J 272.1 ESSENTIAL HYPERTRIGLYCERIDEMIA 12/24/2012 [place] DIAZ APRNFER J 277.7 DYSMETABOLIC SYNDROME X 12/24/2012 DIAZVIRGINIA MITTAL APRNFER J 805.2 FRACTURE OF THORACIC VERTEBRAL BODY WEDGE COMPRESSION 12/24/2012 DIAZALMITA MITTAL APRNNIFER J 272.1 ESSENTIAL HYPERTRIGLYCERIDEMIA 12/24/2012 ALMITA DIAZ APRNNIFER J 277.7 DYSMETABOLIC SYNDROME X 12/24/2012 DIAZ ALMITA TONGNIFER J 805.2 FRACTURE OF THORACIC VERTEBRAL BODY WEDGE COMPRESSION 12/24/2012 DIAZALMITA MITTAL APRNNIFER J 272.1 ESSENTIAL HYPERTRIGLYCERIDEMIA 12/24/2012 ALMITA DIAZ APRNNIFER J 277.7 DYSMETABOLIC SYNDROME X 12/24/2012 DIAZ ALMITA TONGNIFER J 805.2 FRACTURE OF THORACIC VERTEBRAL BODY WEDGE COMPRESSION 12/24/2012 DIAZALMITA MITTAL APRNNIFER J 272.1 ESSENTIAL HYPERTRIGLYCERIDEMIA 12/24/2012 ALMITA DIAZ APRNNIFER J 277.7 DYSMETABOLIC SYNDROME X 12/24/2012 DIAZALMITA MITTAL APRNNIFER J 805.2 FRACTURE OF THORACIC VERTEBRAL BODY WEDGE COMPRESSION 12/24/2012 YAZAN AL RN 272. 1 ESSENTIAL HYPERTRIGLYCERIDEMIA 12/24/2012 YAZAN AL RN 277. 7 DYSMETABOLIC SYNDROME X 12/24/2012 YAZAN AL RN 805. 2 FRACTURE OF THORACIC VERTEBRAL BODY WEDGE COMPRESSION 12/24/2012 YAZAN AL RN E 272. 1 ESSENTIAL HYPERTRIGLYCERIDEMIA 12/24/2012 YAZAN AL RN 277. 7 DYSMETABOLIC SYNDROME X 12/24/2012 YAZAN AL RN 805. 2 FRACTURE OF THORACIC VERTEBRAL BODY WEDGE COMPRESSION 12/24/2012 DIEZ DO, RINA K 272.1 ESSENTIAL HYPERTRIGLYCERIDEMIA 12/24/2012 DIEZ DO, RINA K 277.7 DYSMETABOLIC SYNDROME X 12/24/2012 DIEZ DO, RINA K 805.2 FRACTURE OF THORACIC VERTEBRAL BODY WEDGE COMPRESSION 12/24/2012 YAZAN AL RN 272. 1 ESSENTIAL HYPERTRIGLYCERIDEMIA 12/24/2012 YAZAN AL RN 277. 7 DYSMETABOLIC SYNDROME X 12/24/2012 YAZAN AL RN 805. 2 FRACTURE OF THORACIC VERTEBRAL BODY WEDGE COMPRESSION 12/24/2012 YAZAN AL RN 272. 1 ESSENTIAL HYPERTRIGLYCERIDEMIA 12/24/2012 YAZAN AL RN 277. 7 DYSMETABOLIC SYNDROME X 12/24/2012 YAZAN AL RN 805. 2 FRACTURE OF THORACIC VERTEBRAL BODY WEDGE COMPRESSION 12/24/2012 YAZAN AL RN 272. 1 ESSENTIAL HYPERTRIGLYCERIDEMIA 12/24/2012 YAZAN AL RN 277. 7 DYSMETABOLIC SYNDROME X 12/24/2012 YAZAN AL RN 805. 2 FRACTURE OF THORACIC VERTEBRAL BODY WEDGE COMPRESSION 12/24/2012 CHRIS DIAZ APRN 272.1 ESSENTIAL HYPERTRIGLYCERIDEMIA 12/24/2012 CHRIS DIAZ APRN 277.7 DYSMETABOLIC SYNDROME X 12/24/2012 CHRIS DIAZ APRN 805.2 FRACTURE OF THORACIC VERTEBRAL BODY WEDGE COMPRESSION 12/24/2012 CHRIS DIAZ APRN 272.1 ESSENTIAL HYPERTRIGLYCERIDEMIA 12/24/2012 CHRIS DIAZ APRN 277.7 DYSMETABOLIC SYNDROME X 12/24/2012 CHRIS DIAZ APRN 805.2 FRACTURE OF THORACIC VERTEBRAL BODY WEDGE COMPRESSION 12/24/2012 DIEZ DO, RINA K 272.1 ESSENTIAL HYPERTRIGLYCERIDEMIA 12/24/2012 DIEZ DO RINA K 277.7 DYSMETABOLIC SYNDROME X 12/24/2012 DIEZ DO, RINA K 805.2 FRACTURE OF THORACIC VERTEBRAL BODY WEDGE COMPRESSION 12/24/2012 ИРИНА RICHARDSON STAFF ASSISTANT, SUNIL N 272.1 ESSENTIAL HYPERTRIGLYCERIDEMIA 12/24/2012 ИРИНА RICHARDSON STAFF ASSISTANT, SUNIL N 277.7 DYSMETABOLIC SYNDROME X 12/24/2012 ИРИНА RICHARDSON APRN, SUNIL N 805.2 FRACTURE OF THORACIC VERTEBRAL BODY WEDGE COMPRESSION 12/24/2012 YAZAN AL RN E 272. 1 ESSENTIAL HYPERTRIGLYCERIDEMIA 12/24/2012 YAZAN AL RN E 277. 7 DYSMETABOLIC SYNDROME X 12/24/2012 YAZAN AL RN E 805. 2 FRACTURE OF THORACIC VERTEBRAL BODY WEDGE COMPRESSION 12/24/2012 DIETER STAFF ASSISTANT, ARLEN 272 .1 ESSENTIAL HYPERTRIGLYCERIDEMIA 12/24/2012 DIETER STAFF ASSISTANT, ARLEN 277 .7 DYSMETABOLIC SYNDROME X 12/24/2012 DIETER STAFF ASSISTANT, ARLEN 805 .2 FRACTURE OF THORACIC VERTEBRAL BODY WEDGE COMPRESSION 12/24/2012 KETURAH LCMF, QUINTIN W 272.1 ESSENTIAL HYPERTRIGLYCERIDEMIA 12/24/2012 KETURAH LCMF, QUINTIN W 277.7 DYSMETABOLIC SYNDROME X 12/24/2012 KETURAH LCMF, QUINTIN W 805.2 FRACTURE OF THORACIC VERTEBRAL BODY WEDGE COMPRESSION 12/24/2012 MIKAELA MELLO, YAZAN E 272. 1 ESSENTIAL HYPERTRIGLYCERIDEMIA 12/24/2012 MIKAELA MELLO, YAZAN E 277. 7 DYSMETABOLIC SYNDROME X 12/24/2012 YAZAN AL RN 805. 2 FRACTURE OF THORACIC VERTEBRAL BODY WEDGE COMPRESSION 04/01/2013 RAMESH MCDANIELS, MERCED 780. 57 SLEEP APNEA 04/01/2013 RINA DIEZ DO 780.57 SLEEP APNEA 04/01/2013 CHRIS DIAZ APRN 780.57 SLEEP APNEA 04/01/2013 CHRIS DIAZ APRN 780.57 SLEEP APNEA 04/01/2013 CHRIS DIAZ APRN 780.57 SLEEP APNEA 04/01/2013 CHRIS DIAZ APRN 780.57 SLEEP APNEA 04/01/2013 YAZAN AL RN 780. 57 SLEEP APNEA 04/01/2013 YAZAN AL RN 780. 57 SLEEP APNEA 04/01/2013 RINA DIEZ DO 780.57 SLEEP APNEA 04/01/2013 YAZAN AL RN 780. 57 SLEEP APNEA 04/01/2013 MIKAELA MELLO, YAZAN Caceres 780. 57 SLEEP APNEA 04/01/2013 YAZAN AL RN 780. 57 SLEEP APNEA 04/01/2013 CHRIS DIAZ APRN 780.57 SLEEP APNEA 04/01/2013 CHRIS DIAZ APRN 780.57 SLEEP APNEA 04/01/2013 RINA DIEZ DO 780.57 SLEEP APNEA 04/01/2013 SUNIL HEALY APRN 780.57 SLEEP APNEA 04/01/2013 MIKAELA MELLO, YAZAN Caceres 780. 57 SLEEP APNEA 04/01/2013 ARLEN GARCIAS APRN 780 .57 SLEEP APNEA 04/01/2013 QUINTIN JONES 780.57 SLEEP APNEA 04/01/2013 YAZAN AL RN 780. 57 SLEEP APNEA 04/18/2013 RINA DIEZ DO V65.3 DIETARY SURVEILLANCE AND COUNSELING 04/18/2013 RINA DIEZ DO V65.41 EXERCISE COUNSELING 04/18/2013 CHRIS DIAZ APRN V65.3 DIETARY SURVEILLANCE AND COUNSELING 04/18/2013 CHRIS DIAZ APRN V65.41 EXERCISE COUNSELING 04/18/2013 CHRIS DIAZ APRN V65.3 DIETARY SURVEILLANCE AND COUNSELING 04/18/2013 CHRIS DIAZ APRN V65.41 EXERCISE COUNSELING 04/18/2013 CHRIS DIAZ APRN V65.3 DIETARY SURVEILLANCE AND COUNSELING 04/18/2013 CHRIS DIAZ APRN V65.41 EXERCISE COUNSELING 04/18/2013 CHRIS DIAZ APRN V65.3 DIETARY SURVEILLANCE AND COUNSELING 04/18/2013 CHRIS DIAZ APRN V65.41 EXERCISE COUNSELING 04/18/2013 YAZAN AL RN V65. 3 DIETARY SURVEILLANCE AND COUNSELING 04/18/2013 YAZAN AL RN V65. 41 EXERCISE COUNSELING 04/18/2013 YAZAN AL RN V65. 3 DIETARY SURVEILLANCE AND COUNSELING 04/18/2013 YAZAN AL RN V65. 41 EXERCISE COUNSELING 04/18/2013 RINA DIEZ DO V65.3 DIETARY SURVEILLANCE AND COUNSELING 04/18/2013 RINA DIEZ DO V65.41 EXERCISE COUNSELING 04/18/2013 YAZAN AL RN V65. 3 DIETARY SURVEILLANCE AND COUNSELING 04/18/2013 YAZAN AL RN V65. 41 EXERCISE COUNSELING 04/18/2013 YAZAN AL RN V65. 3 DIETARY SURVEILLANCE AND COUNSELING 04/18/2013 YAZAN AL RN V65. 41 EXERCISE COUNSELING 04/18/2013 YAZAN AL RN V65. 3 DIETARY SURVEILLANCE AND COUNSELING 04/18/2013 YAZAN AL RN V65. 41 EXERCISE COUNSELING 04/18/2013 CHRIS DIAZ APRN V65.3 DIETARY SURVEILLANCE AND COUNSELING 04/18/2013 CHRIS DIAZ APRN V65.41 EXERCISE COUNSELING 04/18/2013 CHRIS DIAZ APRN V65.3 DIETARY SURVEILLANCE AND COUNSELING 04/18/2013 CHRIS DIAZ APRN V65.41 EXERCISE COUNSELING 04/18/2013 DIEZ DOBILLA K V65.3 DIETARY SURVEILLANCE AND COUNSELING 04/18/2013 DIEZ DOBILLA K V65.41 EXERCISE COUNSELING 04/18/2013 SUNIL HEALY APRN V65.3 DIETARY SURVEILLANCE AND COUNSELING 04/18/2013 SUNIL HEALY APRN V65.41 EXERCISE COUNSELING 04/18/2013 YAZAN AL RN V65. 3 DIETARY SURVEILLANCE AND COUNSELING 04/18/2013 YAZAN AL RN V65. 41 EXERCISE COUNSELING 04/18/2013 ARLEN GARCIAS APRN V65 .3 DIETARY SURVEILLANCE AND COUNSELING 04/18/2013 ARLEN GARCIAS APRN V65 .41 EXERCISE COUNSELING 04/18/2013 QUINTIN JONES V65.3 DIETARY SURVEILLANCE AND COUNSELING 04/18/2013 QUINTIN JONES V65.41 EXERCISE COUNSELING 04/18/2013 YAZAN AL RN V65. 3 DIETARY SURVEILLANCE AND COUNSELING 04/18/2013 YAZAN AL RN V65. 41 EXERCISE COUNSELING 07/26/2013 CHRIS DIAZ APRN 472.0 RHINITIS 07/26/2013 CHRIS DIAZ APRN 786.09 snoring 07/26/2013 CHRIS DIAZ APRN 472.0 RHINITIS 07/26/2013 CHRIS DIAZ APRN 786.09 snoring 07/26/2013 ALMITA DIAZ APRNNIFER J 472.0 RHINITIS 07/26/2013 DIAZ STAFF ASSISTANT, CHRIS J 786.09 snoring 07/26/2013 DIAZ STAFF ASSISTANT, CHRIS J 472.0 RHINITIS 07/26/2013 DIAZ STAFF ASSISTANT, CHRIS J 786.09 snoring 07/26/2013 MIKAELA MELLO, YAZAN E 472. 0 RHINITIS 07/26/2013 MIKAELA MELLO, YAZAN Nicki 786. 09 snoring 07/26/2013 MIKAELA MELLO, YAZAN E 472. 0 RHINITIS 07/26/2013 MIKAELA MELLO, YAZAN E 786. 09 snoring 07/26/2013 RINA DIEZ DO K 472.0 RHINITIS 07/26/2013 RINA DIEZ DO K 786.09 snoring 07/26/2013 MIKAELA MELLO, YAZAN E 472. 0 RHINITIS 07/26/2013 MIKAELA MELLO, YAZAN E 786. 09 snoring 07/26/2013 MIKAELA MELLO, YAZAN E 472. 0 RHINITIS 07/26/2013 MIKAELA MELLO, YAZAN E 786. 09 snoring 07/26/2013 MIKAELA MELLO, YAZAN E 472. 0 RHINITIS 07/26/2013 MIKAELA MELLO, YAZAN E 786. 09 snoring 07/26/2013 DIAZ STAFF ASSISTANT, CHRIS J 472.0 RHINITIS 07/26/2013 DIAZ STAFF ASSISTANT, CHRIS J 786.09 snoring 07/26/2013 DIAZ STAFF ASSISTANT, CHRIS J 472.0 RHINITIS 07/26/2013 DIAZ STAFF ASSISTANT, CHRIS J 786.09 snoring 07/26/2013 BILL DIEZ DOA K 472.0 RHINITIS 07/26/2013 RINA DIEZ DO K 786.09 snoring 07/26/2013 GIFFORD CASHERO STAFF ASSISTANT, SUNIL N 472.0 RHINITIS 07/26/2013 GIFFORD CASHERO STAFF ASSISTANT, SUNIL N 786.09 snoring 07/26/2013 MIKAELA MELLO, YAZAN E 472. 0 RHINITIS 07/26/2013 MIKAELA MELLO, YAZAN E 786. 09 snoring 07/26/2013 DIETER STAFF ASSISTANT, ARLEN 472 .0 RHINITIS 07/26/2013 DIETER STAFF ASSISTANT, ARLEN 786 .09 snoring 07/26/2013 QUINTIN JONES 472.0 RHINITIS 07/26/2013 KETURAH SHAFFER, QUINTIN Singh 786.09 snoring 07/26/2013 YAZAN AL RN 472. 0 RHINITIS 07/26/2013 YAZAN AL RN 786. 09 snoring 11/29/2013 CHRIS DIAZ APRN 729.81 (Lower) Leg Localized Swelling Bilateral 11/29/2013 CHRIS DIAZ APRN 729.81 (Lower) Leg Localized Swelling Bilateral 11/29/2013 CHRIS DIAZ APRN 729.81 (Lower) Leg Localized Swelling Bilateral 11/29/2013 YAZAN AL RN 729. 81 (Lower) Leg Localized Swelling Bilateral 11/29/2013 YAZAN AL RN 729. 81 (Lower) Leg Localized Swelling Bilateral 11/29/2013 RINA DIEZ DO K 729.81 (Lower) Leg Localized Swelling Bilateral 11/29/2013 YAZAN AL RN 729. 81 (Lower) Leg Localized Swelling Bilateral 11/29/2013 YAZAN AL RN 729. 81 (Lower) Leg Localized Swelling Bilateral 11/29/2013 YAZAN AL RN 729. 81 (Lower) Leg Localized Swelling Bilateral 11/29/2013 CHRIS DIAZ APRN 729.81 (Lower) Leg Localized Swelling Bilateral 11/29/2013 CHRIS DIAZ APRN 729.81 (Lower) Leg Localized Swelling Bilateral 11/29/2013 RINA DIEZ DO K 729.81 (Lower) Leg Localized Swelling Bilateral 11/29/2013 SUNIL HEALY APRN 729.81 (Lower) Leg Localized Swelling Bilateral 11/29/2013 YAZAN AL RN 729. 81 (Lower) Leg Localized Swelling Bilateral 11/29/2013 ARLEN GARCIAS APRN 729 .81 (Lower) Leg Localized Swelling Bilateral 11/29/2013 KETURAH SHAFFER, QUINTIN Singh 729.81 (Lower) Leg Localized Swelling Bilateral 11/29/2013 YAZAN AL RN 729. 81 (Lower) Leg Localized Swelling Bilateral 12/18/2013 CHRIS DIAZ APRN 782.3 soft tissue swelling (non-joint) [Sx] 12/18/2013 YAZAN AL RN 782. 3 soft tissue swelling (non-joint) [Sx] 12/18/2013 YAZAN AL RN 782. 3 soft tissue swelling (non-joint) [Sx] 12/18/2013 RINA DIEZ DO 782.3 soft tissue swelling (non-joint) [Sx] 12/18/2013 YAZAN AL RN 782. 3 soft tissue swelling (non-joint) [Sx] 12/18/2013 YAZAN AL RN 782. 3 soft tissue swelling (non-joint) [Sx] 12/18/2013 YAZAN AL RN 782. 3 soft tissue swelling (non-joint) [Sx] 12/18/2013 CHRIS DIAZ APRN 782.3 soft tissue swelling (non-joint) [Sx] 12/18/2013 CHRIS DIAZ APRN 782.3 soft tissue swelling (non-joint) [Sx] 12/18/2013 RINA DIEZ DO 782.3 soft tissue swelling (non-joint) [Sx] 12/18/2013 SUNIL HEALY APRN 782.3 soft tissue swelling (non-joint) [Sx] 12/18/2013 YAZAN AL RN 782. 3 soft tissue swelling (non-joint) [Sx] 12/18/2013 ARLEN GARCIAS APRN 782 .3 soft tissue swelling (non-joint) [Sx] 12/18/2013 KETURAH SHAFFER, QUINTIN Singh 782.3 soft tissue swelling (non-joint) [Sx] 12/18/2013 YAZAN AL RN 782. 3 EDEMA 01/27/2014 YAZAN AL RN 296. 32 MAJOR DEPRESSIVE AFFECTIVE DISORDER RECURRENT EPISODE MODERATE DEGREE 01/27/2014 RINA DIEZ DO 296.32 MAJOR DEPRESSIVE AFFECTIVE DISORDER RECURRENT EPISODE MODERATE DEGREE 01/27/2014 YAZAN AL RN 296. 32 MAJOR DEPRESSIVE AFFECTIVE DISORDER RECURRENT EPISODE MODERATE DEGREE 01/27/2014 YAZAN AL RN 296. 32 MAJOR DEPRESSIVE AFFECTIVE DISORDER RECURRENT EPISODE MODERATE DEGREE 01/27/2014 YAZAN AL RN 296. 32 MAJOR DEPRESSIVE AFFECTIVE DISORDER RECURRENT EPISODE MODERATE DEGREE 01/27/2014 CHRSI DIAZ APRN 296.32 MAJOR DEPRESSIVE AFFECTIVE DISORDER RECU RRENT EPISODE MODERATE DEGREE 01/27/2014 CHRIS DIAZ APRN 296.32 MAJOR DEPRESSIVE AFFECTIVE DISORDER RECU RRENT EPISODE MODERATE DEGREE 01/27/2014 RINA DIEZ DO K 296.32 MAJOR DEPRESSIVE AFFECTIVE DISORDER RECURRENT EPISODE MODERATE DEGREE 01/27/2014 SUNIL HEALY APRN N 296.32 MAJOR DEPRESSIVE AFFECTIVE DISORDER RECU RRENT EPISODE MODERATE DEGREE 01/27/2014 YAZAN AL RN 296. 32 MAJOR DEPRESSIVE AFFECTIVE DISORDER RECURRENT EPISODE MODERATE DEGREE 01/27/2014 ARLEN GARCIAS APRN 296 .32 MAJOR DEPRESSIVE AFFECTIVE DISORDER RECURRENT EPISODE MODERATE DEGREE 01/27/2014 QUINTIN JONES 296.32 MAJOR DEPRESSIVE AFFECTIVE DISORDER RECU RRENT EPISODE MODERATE DEGREE 01/27/2014 YAZAN AL RN 296. 32 MAJOR DEPRESSIVE AFFECTIVE DISORDER RECURRENT EPISODE MODERATE DEGREE 01/31/2014 YAZAN AL RN 300. 00 ANXIETY STATE UNSPECIFIED 01/31/2014 YAZAN AL RN 300. 00 ANXIETY STATE UNSPECIFIED 01/31/2014 RINA DIEZ DO 300.00 ANXIETY STATE UNSPECIFIED 01/31/2014 YAZAN AL RN E 300. 00 ANXIETY STATE UNSPECIFIED 01/31/2014 YAZAN AL RN 300. 00 ANXIETY STATE UNSPECIFIED 01/31/2014 YAZAN AL RN E 300. 00 ANXIETY STATE UNSPECIFIED 01/31/2014 CHRIS DIAZ APRN 300.00 ANXIETY STATE UNSPECIFIED 01/31/2014 CHRIS DIAZ APRN 300.00 ANXIETY STATE UNSPECIFIED 01/31/2014 RINA DIEZ DO K 300.00 ANXIETY STATE UNSPECIFIED 01/31/2014 SUNIL HEALY APRN N 300.00 ANXIETY STATE UNSPECIFIED 01/31/2014 YAZAN AL RN E 300. 00 ANXIETY STATE UNSPECIFIED 01/31/2014 ARLEN GARCIAS APRN 300 .00 ANXIETY STATE UNSPECIFIED 01/31/2014 QUINTIN JONES 300.00 ANXIETY STATE UNSPECIFIED 01/31/2014 YAZAN AL RN 300. 00 ANXIETY STATE UNSPECIFIED 03/07/2014 RINA DIEZ DO 729.5 LIMB PAIN LOWER LEG 03/07/2014 RINA DIEZ DO 924.10 CONTUSION OF LOWER LEG 03/07/2014 YAZAN AL RN 729. 5 LIMB PAIN LOWER LEG 03/07/2014 YAZAN AL RN E 924. 10 CONTUSION OF LOWER LEG 03/07/2014 MIKAELA MELLO, YAZAN E 729. 5 LIMB PAIN LOWER LEG 03/07/2014 YAZAN AL RN E 924. 10 CONTUSION OF LOWER LEG 03/07/2014 MIKAELA MELLO, YAZAN E 729. 5 LIMB PAIN LOWER LEG 03/07/2014 MIKAELA MELLO, YAZAN E 924. 10 CONTUSION OF LOWER LEG 03/07/2014 CHRIS DIAZ APRN 729.5 LIMB PAIN LOWER LEG 03/07/2014 CHRIS DIAZ APRN J 924.10 CONTUSION OF LOWER LEG 03/07/2014 CHRIS DIAZ APRN J 729.5 LIMB PAIN LOWER LEG 03/07/2014 CHRIS DIAZ APRN 924.10 CONTUSION OF LOWER LEG 03/07/2014 RINA DIEZ DO K 729.5 LIMB PAIN LOWER LEG 03/07/2014 RINA DIEZ DO 924.10 CONTUSION OF LOWER LEG 03/07/2014 SUNIL HEALY APRN N 729.5 LIMB PAIN LOWER LEG 03/07/2014 SUNIL HEALY APRN N 924.10 CONTUSION OF LOWER LEG 03/07/2014 MIKAELA MELLO, YAZAN E 729. 5 LIMB PAIN LOWER LEG 03/07/2014 YAZAN AL RN E 924. 10 CONTUSION OF LOWER LEG 03/07/2014 DIETERARLEN MCCORD APRN 729 .5 LIMB PAIN LOWER LEG 03/07/2014 DIETER RAN ARLEN 924 .10 CONTUSION OF LOWER LEG 03/07/2014 QUINTIN JONES 729.5 LIMB PAIN LOWER LEG 03/07/2014 QUINTIN JONES W 924.10 CONTUSION OF LOWER LEG 03/07/2014 YAZAN AL RN E 729. 5 LIMB PAIN LOWER LEG 03/07/2014 YAZAN AL RN E 924. 10 CONTUSION OF LOWER LEG 06/24/2014 RINA DIEZ DO K 380.4 IMPACTED CERUMEN 06/24/2014 LEANNA HEALY APRNCY N 380.4 IMPACTED CERUMEN 06/24/2014 YAZAN AL RN E 380. 4 IMPACTED CERUMEN 06/24/2014 ARLEN GARCIAS APRN 380 .4 IMPACTED CERUMEN 06/24/2014 QUINTIN JONES 380.4 IMPACTED CERUMEN 06/24/2014 YAZAN AL RN 380. 4 CERUMEN IMPACTION - BOTH EARS 07/10/2014 ИРИНА RICHARDSON APRN, SUNIL N 704.8 FOLLICULITIS 07/10/2014 YAZAN AL RN 704. 8 FOLLICULITIS 07/10/2014 ARLEN GARCIAS APRN 704 .8 FOLLICULITIS 07/10/2014 QUINTIN JONES 704.8 FOLLICULITIS 07/10/2014 YAZAN AL RN 704. 8 FOLLICULITIS 07/11/2014 ИРИНА RICHARDSON APRN, SUNIL N 608.4 OTHER INFLAMMATORY DISORDERS OF MALE GENITAL ORGANS 07/11/2014 YAZAN AL RN 608. 4 OTHER INFLAMMATORY DISORDERS OF MALE GENITAL ORGANS 07/11/2014 ARLEN GARCIAS APRN 608 .4 OTHER INFLAMMATORY DISORDERS OF MALE GENITAL ORGANS 07/11/2014 QUINTIN JONES 608.4 OTHER INFLAMMATORY DISORDERS OF MALE GENITAL ORGANS 07/11/2014 YAZAN AL RN 608. 4 SCROTUM ABSCESS 08/21/2014 YAZAN AL RN V69. 1 INAPPROPRIATE DIET AND EATING HABITS 08/21/2014 ARLEN GARCIAS APRN V69 .1 INAPPROPRIATE DIET AND EATING HABITS 08/21/2014 QUINTIN JONES V69.1 INAPPROPRIATE DIET AND EATING HABITS 08/21/2014 YZAAN AL RN V69. 1 INAPPROPRIATE DIET AND EATING HABITS 08/29/2014 YAZAN AL RN 296. 35 MO DEPRESSIVE RECURRENT IN PART OR UNSPECIFIED REMISSION 08/29/2014 ARLEN GARCIAS APRN 296 .35 MO DEPRESSIVE RECURRENT IN PART OR UNSPECIFIED REMISSION 08/29/2014 QUINTIN JONES 296.35 MO DEPRESSIVE RECURRENT IN PART OR UNSPECIFIED REMISSI ON 08/29/2014 YAZAN AL RN 296. 35 MO DEPRESSIVE RECURRENT IN PART OR UNSPECIFIED REMISSION 09/22/2014 QUINTIN JONES 300.01 AN PANIC DIS W/O AGORA 09/22/2014 YAZAN AL RN 300. 01 AN PANIC DIS W/O AGORA Procedures Code [place] [address] XRAY THORACIC SPINE 2 VIEWS 10/24/2012 20637 XRAY LUMBAR SPINE MIN 4 VIEWS 10/24/2012 18809 ROUT INE VENIPUNCTURE 11/20/2012 64704 CMP 11/20/2012 00246 LIPI D PANEL 11/20/2012 84497 A1C (RML) 11/20/2012 45793 CBC 11/20/2012 THYANA THY ROID ANALYZER 11/20/2012 17052 DEXA BONE DENSITY, AXIAL 11/30/2012 90490 THER APUTIC INJ SQ/IM 04/01/2013 J1885 KOSTA DOL INJ 04/01/2013 PHYSICAL M ERCY, PHY/OCC THERAPY 04/02/2013 [facility]ariat[facility] 04/18/2013 68321 URIN E DRUG SCREEN (IN-HOUSE) 07/26/2013 66781 SLEE P STUDY (HOSPITAL- SLEEP STUDY) 07/28/2013 45999 A1C (IN-HOUSE) 11/29/2013 28564 CMP 12/04/2013 14470 LIPI D PANEL 12/04/2013 THYANA THY ROID ANALYZER 12/04/2013 21037 ROUT INE VENIPUNCTURE 12/04/2013 S0280 COMP REHENSIVE CARE MANAGEMENT 02/05/2014 S0280 HEAL TH PROMOTION 02/21/2014 66285 US V ENOUS DOPPLER (DVT EVAL) 03/09/2014 S0281 CARE COORDINATION 03/17/2014 S0280 HEAL TH PROMOTION 04/01/2014 S0281 CARE COORDINATION 04/01/2014 S0280 HEAL TH PROMOTION 04/28/2014 S0281 CARE COORDINATION 04/28/2014 68027 A1C (IN-HOUSE) 04/28/2014 23918 NERI VE IMPACTED EAR WAX UNI 06/24/2014 S0280 HEAL TH PROMOTION 06/26/2014 S0280 COMP REHENSIVE CARE MANAGEMENT 06/26/2014 S0280 HEAL TH PROMOTION 07/23/2014 S0280 HEAL TH PROMOTION 09/08/2014 S0281 CARE COORDINATION 09/08/2014 82001 PSYC H DIAGNOSTIC EVALUATION 09/22/2014 S0281 CARE COORDINATION 10/13/2014 S0280 HEAL TH PROMOTION 10/16/2014 Results Test Result Range [facility] - 06/22/17 15:45 GLUCOSE 106 mg/dL 65-99 UREA NITROGEN (BUN) 9 mg/dL 7-25 CREATININE 0.86 mg/dL 0.60-1.35 eGFR NON-AFR. TOGOLESE 103 mL/min/1.73m2 > OR = 60 eGFR 119 mL/min/1.73m2 > OR = 60 BUN/CREATININE RATIO NOT APPLICABLE (calc) 6-22 SODIUM 140 mmol/L 135-146 POTASSIUM 3.7 mmol/L 3.5-5.3 CHLORIDE 104 mmol/L 98-110 CARBON DIOXIDE 30 mmol/L 20-31 CALCIUM 9.3 mg/dL 8.6-10.3 PROTEIN, TOTAL 7.3 g/dL 6.1-8.1 ALBUMIN 3.8 g/dL 3.6-5.1 GLOBULIN 3.5 g/dL (calc) 1.9-3.7 ALBUMIN/GLOBULIN RATIO 1.1 (calc) 1.0-2. 5 BILIRUBIN, TOTAL 0.4 mg/dL 0.2-1.2 ALKALINE PHOSPHATASE 55 U/L 40-115 AST 13 U/L 10-40 ALT 9 U/L 9-46 VITAMIN D, 25-H - 06/22/17 15:45 VITAMIN D,25-OH,TOTAL,IA 32 ng/mL 30-10 0 CRP - 05/02/19 10:56 C-REACTIVE PROTEIN 12.7 mg/L <8.0 LIPID PANEL - 06/24/19 09:24 CHOLESTEROL, TOTAL 142 mg/dL <200 HDL CHOLESTEROL 36 mg/dL >40 TRIGLYCERIDES 161 mg/dL <150 LDL-CHOLESTEROL 79 mg/dL (calc) NRG CHOL/HDLC RATIO 3.9 (calc) <5.0 NON HDL CHOLESTEROL 106 mg/dL (calc) <13 0 Coronavirus SARS-CoV-2 SO 2018 - 0 08:49 Coronavirus Ab [Units/volume] in Serum Negative Negative Encounters ACCT No. Visit Date/Time Discharge Status Pt. Type Provider Facility Loc./Unit Complaint [id number] 10/28/2019 14:40:00 10/28/2019 23:59: 59 CLS Out[facility] [place] [id number] 06/24/2019 09:00:00 Document Registration [id number] 05/02/2019 11:00:00 Document Registration [id number] 06/22/2017 15:00:00 Document Registration [id number] 10/06/2014 08:45:00 10/06/2014 23:59: 59 CLS Outpatient YAZAN AL RN [id number] 09/22/2014 10:00:00 09/22/2014 23:59: 59 CLS Outpatient QUINTIN JONES [id number] 09/01/2014 16:30:00 09/01/2014 23:59: 59 CLS Outpatient YAZAN AL RN [id number] 08/29/2014 09:46:00 08/29/2014 23:59: 59 CLS Outpatient DIETER TONG ARLEN [id number] 07/14/2014 10:16:00 07/14/2014 23:59: 59 CLS Outpatient ИРИНА RICHARDSON APRN SUNIL Donn [id number] 06/24/2014 10:49:00 06/24/2014 23:59: 59 CLS Outpatient RINA DIEZ DO [id number] 04/28/2014 09:35:00 04/28/2014 23:59: 59 CLS Outpatient CHRIS DIAZ APRN [id number] 04/28/2014 09:35:00 04/28/2014 23:59: 59 CLS Outpatient CHRIS DIAZ APRN [id number] 04/14/2014 15:15:00 04/14/2014 23:59: 59 CLS Outpatient YAZAN AL RN [id number] 03/12/2014 14:00:00 03/12/2014 23:59: 59 CLS Outpatient YAZAN AL RN [id number] 03/12/2014 08:15:00 03/12/2014 23:59: 59 CLS Outpatient YAZAN AL RN [id number] 03/07/2014 14:21:00 03/07/2014 23:59: 59 CLS Outpatient RINA DIEZ DO [id number] 01/31/2014 12:56:00 01/31/2014 23:59: 59 CLS Outpatient YAZAN AL RN [id number] 01/27/2014 14:25:00 01/27/2014 23:59: 59 CLS Outpatient YAZAN AL RN [id number] 12/18/2013 15:31:00 12/18/2013 23:59: 59 CLS Outpatient CHRIS DIAZ APRN [id number] 12/04/2013 11:55:00 12/04/2013 23:59: 59 CLS Outpatient CHRIS DIAZ APRN [id number] 11/29/2013 14:13:00 11/29/2013 23:59: 59 CLS Outpatient CHRIS DIAZ APRN [id number] 07/26/2013 13:53:00 07/26/2013 23:59: 59 CLS Outpatient CHRIS DIAZ APRN [id number] 04/18/2013 14:42:00 04/18/2013 23:59: 59 CLS Outpatient RINA DIEZ DO [id number] 04/01/2013 14:29:00 04/01/2013 23:59: 59 CLS Outpatient MERCED CHANDLER MD [id number] 12/24/2012 15:48:00 12/24/2012 23:59: 59 CLS Outpatient MERCED CHANDLER MD [id number] 11/23/2011 13:19:00 11/23/2011 23:59: 59 CLS Outpatient [id number] 11/20/2012 08:01:00 Document Registration [id number] 10/23/2012 15:13:00 Document Registration [id number] 11/26/2019 05:38:00 15:11:00 DIS Outpatient ADEBAYO EPPERSON MD [facility] PREOP CATARACT LEFT EYE [id number] 11/15/2019 11:30:00 23:59:59 CLS Preadmit ADEBAYO EPPERSON MD [facility] SDC CATARACT LEFT EYE [id number] 11/11/2019 05:55:00 23:59:59 CLS Outpatient ADEBAYO EPPERSON MD [facility] PREOP CATARACT LEFT EYE
--- OUTSIDE RECORDS SUMMARY | 2019-11-29 09:49 | XMS REPORT ---
Author Author Curt REBOLLAR [facility] eClinicalWorks Address Unknown Phone Unavailable Care Team Providers Care Veterinary Radiologist Name Role Phone QUINTIN REBOLLAR CP Unavailable Allergies, Adverse Reactions, Alerts Substance Reaction Event Type Wheat throat swells Non Drug Allergy Egg White throat swells Non Drug Allergy Cows Milk throat swells Non Drug Allergy Peanuts throat swells Non Drug Allergy Tenerius Trezevant throat swells Non Drug Allergy Sac throat swells Non Drug Allergy Ragweed throat swells Non Drug Allergy Problems Problem Type Condition Code Onset Dates Condition Statu s Problem Benign essential hypertension I10 Active Problem Type II diabetes mellitus E11.9 Ac tive Problem Morbid obesity E66.01 Active Problem Hyperlipemia E78.5 Active Assessment Major depression F32.9 Active Problem Insomnia G47.00 Active Problem Major depression F32.9 Active Medications No Known Medications Procedures Procedure Coding System Code Date Psychotherapy, patient &/family, 45 minutes, established patient CPT-4 62619 Mar 31, 2015 Results No Known Results Summary Purpose eClinicalWorks Submission
--- OUTSIDE RECORDS SUMMARY | 2019-11-29 09:49 | XMS REPORT ---
Author Author Curt REBOLLAR Organization [facility] Address [address] [place] [address] Care Team Providers Care Dry Mill Worker Name Role Phone QUINTIN REBOLLAR Unavailable PROBLEMS Type Condition ICD9-CM Code [id number] Code Onset Dates Condition S tatus SNOMED Code Problem Major depression F32.9 Active 370 251187 Problem Morbid obesity E66.01 Active 06504 6002 Problem Benign essential hypertension I10 Active 0745649 Problem Insomnia G47.00 Active 087656249 Problem Hyperlipemia E78.5 Active 6687268 4 Problem Acute bacterial conjunctivitis of left eye H10.32 Active 754968166 Problem Recurrent major depressive disorder, in partial remission F33.41 Active 70367096 Problem Edema R60.9 Active 803691461 Problem Type II diabetes mellitus E11.9 Acti ve 53473119 Problem Callus of foot L84 Active 70099 1005 Problem Renal insufficiency N28.9 Active 061843946 ALLERGIES Substance Reaction Event Type Date Status Egg White throat swells Non Drug Allergy Jul, Active Cows Milk throat swells Non Drug Allergy Jul, Active Wheat throat swells Non Drug Allergy Jul, Active Peanuts throat swells Non Drug Allergy Jul, Active Tenerius [place] throat swells Non Drug Allergy Jul, Active [place] throat swells Non Drug Allergy Jul, Active Ragweed throat swells Non Drug Allergy Jul, Active SOCIAL HISTORY Never Assessed PLAN OF CARE Activity Details Follow Up 4 Weeks Reason:Depression VITAL SIGNS MEDICATIONS Unknown Medications RESULTS No Results PROCEDURES Procedure Date Ordered Result Body Site Psychotherapy, patient &/family, 30 minutes, established patient Jul 28, 2016 IMMUNIZATIONS No Known Immunizations MEDICAL (GENERAL) [...]
--- OUTSIDE RECORDS SUMMARY | 2019-11-29 09:49 | XMS REPORT ---
Author Curt Hess [facility] eClinicalWorks Address Unknown Phone Unavailable Care Team Providers Care Burnisher And Bumper Name Role Phone CHRIS DIAZ CP Unavailable Allergies, Adverse Reactions, Alerts Substance Reaction Event Type Wheat throat swells Non Drug Allergy Egg White throat swells Non Drug Allergy Cows Milk throat swells Non Drug Allergy Peanuts throat swells Non Drug Allergy Tenerius [place] throat swells Non Drug Allergy [place] throat swells Non Drug Allergy Ragweed throat swells Non Drug Allergy Problems Problem Type Condition Code Onset Dates Condition Statu s Assessment Edema R60.9 Active Problem Hyperlipemia E78.5 Active Assessment Morbid obesity E66.01 Active Problem Renal insufficiency N28.9 Active Problem Type II diabetes mellitus E11.9 Ac tive Problem Edema R60.9 Active Problem Insomnia G47.00 Active Problem Major depression F32.9 Active Problem Morbid obesity E66.01 Active Problem Benign essential hypertension I10 Active Assessment Renal insufficiency N28.9 Active Assessment Benign essential hypertension I10 Active Assessment Shortness of breath R06.02 Active Medications Medication Code System Code Instructions Start Date End Date Status Dosage Furosemide [facility] [address]-04 20 MG Orally Once a day TAKE 1 tablet Atenolol [facility] [address]-80 100 MG Orally Once a day August 21, 2014 1 tablet by Oral route 1 time per day Tricor [facility] 49993398210 145 MG 1 tablet by Oral route 1 time per day [facility] N[facility] Omeprazole [facility] [address]-21 20 MG Orally Once a day 1 capsule MetFORMIN HCl ER (MOD) [facility] [address]-61 1000 MG Orally tw ice a day January 08, 2015 1 tablet with evenin g meal Lisinopril [facility] [address]-86 40 MG Orally Once a day August 21, 2014 1 Tablet by Oral route 1 time per day Singulair [facility] 58532700871 10 MG 1 Tablet b y Oral route 1 time per day take 1 tablet by mouth 1 time per day Flovent HFA [facility] [address]-68 110 mcg/actuation October 23, 2012 1-3 Puffs 1 time per day Meloxicam [facility] 82450780747 15 MG 1 take 1 t ablet by mouth 1 time per day Flonase NDC 0 50 mcg/actuation November 29, 2013 inhale 1 spray (50 mcg) in each nostril by intranasal route 2 times per day Brintellix [facility] [address]-05 20 MG Orally Once a day for one w point lay ira November 18, 2014 1 tablet Procedures Procedure Coding System Code Date Office Visit, Est Pt., Level 4 CPT-4 80285 D 2014 Vital Signs Date/Time: May 26, 2015 Temperature 98.7 F Weight 464.8 lbs Height 72 in BMI 63.03 Index Blood Pressure Diastolic 84 mmHg Blood Pressure Systolic 130 mmHg Cardiac Monitoring Heart Rate 81 bpm Results No Known Results Summary Purpose eClinicalWorks Submission
--- NOTE | 2019-11-29 10:02 | Ophthalmology Operative Report ---
Cataract removal/placement IOL PREOPERATIVE DIAGNOSIS: Cataract Left Eye POSTOPERATIVE DIAGNOSIS: Cataract Left Eye PROCEDURE: Cataract removal and placement of posterior chamber implant, left eye SURGEON: Ivan Epperson ANESTHESIA: Topical with sedation COMPLICATIONS: None ESTIMATED BLOOD LOSS: Minimal DESCRIPTION OF PROCEDURE: After proper informed consent was obtained, the patient, a 49 male, was taken to the Operating Room and the left eye was anesthetized with tetracaine. The left eye was then prepped and draped in the usual manner. A wire lid speculum was placed. A paracentesis was made at the left hand position. Preservative free lidocaine was injected into the anterior chamber followed by viscoelastic. A clear corneal incision was made in the temporal position. A capsulorrhexis was preformed and the central nuclear and cortical material were removed. The posterior capsule was polished and an Nav 16.5 [id number] was placed into the capsular bag. The residual viscoelastic was aspirated and balanced saline solution was injected into the anterior chamber. Moxifloxacin was injected into the anterior chamber. The wound was checked and found to be water tight. The patient tolerated the procedure well without complications. IVAN EPPERSON MD Nov 29, 2019 10:02
[2019-11-29] MEDS ORDERED: acetaZOLAMIDE ER 500 MG CAP (DIAMOX SEQUELS) PO ONE (10:30)
[2019-11-29 11:00] VITALS: BP 155/93
--- NOTE | 2019-11-29 11:47 | Anesthesia-General Post-Op ---
MAC Patient Condition Mental Status/LOC: Same as Preop Cardiovascular: Satisfactory Nausea/Vomiting: Absent Respiratory: Satisfactory Pain: Controlled Complications: Absent Post Op Complications Complications None Follow Up Care/Instructions Patient Instructions None needed. Anesthesiology Discharge Order Discharge Order Patient is doing well, no complaints, stable vital signs, no apparent adverse anesthesia problems. No complications reported per nursing. FLOR SMITH DENTAL TECH Nov 29, 2019 11:47
== END 2019-11-29 11:00 | disposition home or self-care (01) ==
LOC: SDC 08:33
PROVIDERS: ATTEND Specialist
DX: H25.12 Age-related nuclear cataract, left eye (principal); F32.9 Major depressive disorder, single episode, unspecified; F41.9 Anxiety disorder, unspecified; I10 Essential (primary) hypertension; Z79.899 Other long term (current) drug therapy
CPT/HCPCS: 66984; V2632

== ENCOUNTER 2019-12-24 05:50 | Outpatient (RCR) | payer MEDICAID | END 2019-12-24 15:24 | disposition home or self-care (01) | LOC: PREOP 05:50 | PROVIDERS: ATTEND Specialist | DX: Z01.812 Encounter for preprocedural laboratory examination (principal); Z20.828 Contact with and (suspected) exposure to other viral communicable diseases; H25.11 Age-related nuclear cataract, right eye | CPT/HCPCS: 87635 ==

== ENCOUNTER 2019-12-27 09:52 | Day surgery (SDC) | payer MEDICAID ==
[~2019-12-27] VITALS: Ht 182.9 cm; Wt 143.1 kg
--- OUTSIDE RECORDS SUMMARY | 2019-12-27 11:14 | XMS REPORT ---
Author Author Curt DIAZ [facility] Address [address] [place] [address] Care Team Providers Care Soup Mixer Name Role Phone CHRIS DIAZ Unavailable PROBLEMS Type Condition ICD9-CM Code KWD11-TH Code Onset Dates Condition S tatus SNOMED Code Problem Edema R60.9 Active 216937032 Problem Morbid obesity E66.01 Active 80124 6002 Problem Metabolic syndrome E88.81 Active 2 52456723 Problem Renal insufficiency N28.9 Active 535195116 Problem Vitamin D deficiency E55.9 Active 81031234 Problem Severe episode of recurrent major depressive disorder, without psychotic features F33.2 Active 19142562 Problem DANIELA (generalized anxiety disorder) F41.1 Active 54792241 Problem Mixed obsessional thoughts and acts F42.2 Active 15831781 Problem Chronic fatigue R53.82 Active 8422 9001 Problem Other chronic pain G89.29 Active 8 6603325 Problem Borderline personality disorder F60.3 Active 53062349 Problem Attachment disorder F94.1 Active Problem Sciatica, right side M54.31 Active 533764558688891 Problem Insomnia G47.00 Active 475622938 Problem Anxiety F41.9 Active 60139931 Problem BMI 45.0-49.9, adult Z68.42 Active 813504450 Problem Hyperlipemia E78.5 Active 6547713 4 Problem Benign essential hypertension I10 Active 9091157 Problem Callous ulcer, limited to breakdown of skin L98.49 1 Active Problem Hammer toe of right foot M20.41 Activ e 638667144 Problem Hammer toe of second toe of right foot M20.41 Active 797508425 Problem Falling episodes R29.6 Active 161 [id number] ALLERGIES No Information ENCOUNTERS Encounter Location Date Diagnosis [facility] [address] [facility] [id number] [place] [address] Dec, [facility] [address] [id number][place] [id number] Dec, [facility] [address] [id number][place] [id number] Nov, [facility] [address] [facility] [id number] [address] [place] [phone] Nov, DANIELA (generalized anxiety dis order) F41.1 ; Severe episode of recurrent major depressive disorder, without psychotic features F33.2 ; Mixed obsessional thoughts and acts F42.2 and Borderline personality disorder F60.3 [facility] [place] [address] [id number][place] [id number] 16 Nov, 2019 [facility] [address] [facility] [id number] [address] [place] [phone] Nov, [facility] [address] [id number][place] [id number] Nov, [facility] [address] [facility] [id number] [address] [place] [phone] Nov, Benign essential hypertensio n I10 [facility] [address] [id number][place] [id number] Nov, [facility] [address] [facility] [id number] [address] [place] [phone] Nov, [facility] [address] [facility] [id number] [address] [place] [phone] Nov, [facility] [address] [id number][place] [id number] October, Benign essential hypertension I10 [facility] [address] [facility] [id number] [address] [place] [phone] October, DANIELA (generalized anxiety dis order) F41.1 ; Severe episode of recurrent major depressive disorder, without psychotic features F33.2 ; Mixed obsessional thoughts and acts F42.2 and Borderline personality disorder F60.[address] [id number], [place] [address] October, [facility] [place] [address] [id number][place] [id number] October, [facility] [address] [facility] [id number] [address] [place] [address] October, [facility] [address] [id number], [place] [id number] Sep, [facility] [address] [facility] [id number] [address] [place] [phone] Sep, [facility] [address] [id number][place] [id number] Sep, [facility] [address] [facility] [id number] [address] [place] [phone] Sep, [facility] [address] [facility] [id number] [address] [place] [phone] Sep, [facility] [address] [facility] [id number] [address] [place] [phone] Sep, [facility] [address] [facility] [id number] [address] [place] [phone] Sep, [facility] [address] [facility] [id number] [address] [place] [phone] Sep, DANIELA (generalized anxiety dis order) F41.1 ; Severe episode of recurrent major depressive disorder, without psychotic features F33.2 ; Mixed obsessional thoughts and acts F42.2 and Borderline personality disorder F60.3 [facility] [address] [place] [address] [facility] [id number] [address] 13 Sep, 2019 Severe episode of recurrent major depres sive disorder, without psychotic features F33.2 [facility] [place] [address] [id number], [place] [id number] Sep, [facility] [address] [id number], [place] [id number] Sep, [facility] [address] [id number], [place] [id number] 09 Sep, 2019 Benign essential hypertension I10 [facility] [address] [facility] [id number] [address] [place] [phone] 08 Sep, 2019 [facility] [address] [facility] [id number] [address] [place] [phone] Sep, [facility] [address] [facility] [id number] [address] [place] [phone] Sep, [facility] [address] [facility] [id number] [address] [place] [phone] Sep, DANIELA (generalized anxiety dis order) F41.1 ; Severe episode of recurrent major depressive disorder, without psychotic features F33.2 ; Mixed obsessional thoughts and acts F42.2 and Borderline personality disorder F60.[address] [id number][place] [id number] 31 Aug, 2019 [facility] [address] [facility] [id number] [address] [place] [phone] Aug, [id number] [place] [phone] Aug, [facility] [address] [facility] [id number] [address] [place] [phone] Aug, [address] [id number] [place] [address] [id number] 17 Aug, 2019 Dizzy R42 ; Weight gain R63.5 ; Benign e ssential hypertension I10 ; Falling episodes R29.6 and History of gastric bypass Z98.84 [facility] [address] [facility] [id number] [address] [place] [phone] 14 Aug, 2019 [facility] [address] [facility] [id number] [address] [place] [phone] 13 Aug, 2019 [facility] [address] [facility] [id number] [address] [place] [phone] 11 Aug, 2019 DANIELA (generalized anxiety dis order) F41.1 ; Severe episode of recurrent major depressive disorder, without psychotic features F33.2 ; Mixed obsessional thoughts and acts F42.2 and Borderline personality disorder F60.3 [facility] [address] [id number], [place] [id number] Aug, [facility] [address] [id number], [place] [id number] Aug, [facility] [address] [facility] [id number] [address] [place], [place] [id number] Aug, [facility] [id number] [place] [address] [id number] Aug, [facility] [address] [place] [address] [id number] [place] [address] [id number] Aug, [facility] [address] [facility] [id number] [address] [place] [phone] Aug, [facility] [address] [place] [address] [id number] [place] [address] [phone] Aug, Severe episode of recurrent major depres sive disorder, without psychotic features F33.2 ; Borderline personality disorder F60.3 ; Anxiety F41.9 and Attachment disorder F94.1 [facility] [address] [place] [id number] [address] [place] [phone] Jul, [facility] [address] [facility] [id number] [address] [place] [phone] Jul, DANIELA (generalized anxiety dis order) F41.1 ; Severe episode of recurrent major depressive disorder, without psychotic features F33.2 ; Mixed obsessional thoughts and acts F42.2 and Borderline personality disorder F60.3 [facility] [address] [place] [address] A[id number] [place] [address] [id number] Jul, [facility] [address] [facility] [id number] [address] [place] [phone] Jul, [facility] [address] [facility] [id number] [address] [place] [phone] Jul, [place] [address] [facility] [id number] [address] [place] [phone] Jul, [facility] [address] [facility] [id number] [address] [place] [phone] Jul, [place] [address] [facility] [id number] [address] [place] [phone] Jun, DANIELA (generalized anxiety dis order) F41.1 ; Severe episode of recurrent major depressive disorder, without psychotic features F33.2 ; Mixed obsessional thoughts and acts F42.2 and Borderline personality disorder F60.[address] [id number] [place] [id number] Jun, [id number] [place] [address] [id number] Jun, [place] [address] [facility] [id number] [address] [place] [phone] Jun, [place] [address] [facility] [id number] [address] [place] [phone] Jun, DANIELA (generalized anxiety dis order) F41.1 ; Severe episode of recurrent major depressive disorder, without psychotic features F33.2 ; Mixed obsessional thoughts and acts F42.2 and Borderline personality disorder F60.[address] [id number] [place] [id number] Jun, [id number] [place] [id number] Jun, [address] [id number] [place] [address] [id number] Jun, [address] [id number] [place] [address] [id number] Jun, Benign essential hypertension I10 ; Morb id obesity E66.01 ; Severe episode of recurrent major depressive disorder, without psychotic features F33.2 ; Excess skin L98.7 and Hyperlipemia E78.5 [place] [address] [facility] [id number] [address] [place] [phone] Jun, [facility] [address] [facility] [id number] [address] [place] [phone] May, [facility] [address] [facility] [id number] [address] [place] [phone] May, Severe episode of recurrent major depressive disorder, without psychotic features F33.2 ; Mixed obsessional thoughts and acts F42.2 ; DANIELA (generalized anxiety disorder) F41.1 and Borderline personality disorder F60.3 [facility] [address] [facility] [id number] [address] [place] [phone] May, [facility] [address] [facility] [id number] [address] [place] [phone] May, DANIELA (generalized anxiety dis order) F41.1 ; Severe episode of recurrent major depressive disorder, without psychotic features F33.2 ; Mixed obsessional thoughts and acts F42.2 and Borderline personality disorder F60.3 [facility] [address] [facility] [id number] [address] [place] [phone] May, [facility] [address] [facility] [id number] [address] [place] [phone] May, [facility] [address] [facility] [id number] [address] [place] [phone] May, Severe episode of recurrent major depressive disorder, without psychotic features F33.2 ; Mixed obsessional thoughts and acts F42.2 ; Borderline personality disorder F60.3 and DANIELA (generalized anxiety disorder) F41.1 [facility] [address] [id number] [address] [place] [address] [phone] May, Caries K02.9 [facility] [address] [id number], [place] [id number] May, Benign essential hypertension I10 [facility] [place] [address] [id number], [place] [id number] Apr, [facility] [address] [id number], [place] [id number] Apr, Benign essential hypertension I10 [facility] [address] [facility] [id number] [address] [place] [phone] Apr, Borderline personality disor romero F60.3 ; DANIELA (generalized anxiety disorder) F41.1 ; Mixed obsessional thoughts and acts F42.2 and Severe episode of recurrent major depressive disorder, without psychotic features F33.2 [facility] [place] [address] [id number], [place] [id number] Apr, [facility] [address] [id number], [place] [id number] Apr, Benign essential hypertension I10 [facility] [address] [place] [id number] [place] [phone] Apr, Severe episode of recurrent major depressive disorder, without psychotic features F33.2 ; DANIELA (generalized anxiety disorder) F41.1 ; Borderline personality disorder F60.3 and Mixed obsessional thoughts and acts F42.2 [facility] [id number] [place] [address] [phone] Apr, Dental examination Z01.20 [facility] [address] [place] [id number] [place] [address] [id number] Apr, Caries K02.9 and Dental exam ination Z01.20 [facility] [address] [place] [id number] [address] [place] [phone] Apr, DANIELA (generalized anxiety dis order) F41.1 ; Severe episode of recurrent major depressive disorder, without psychotic features F33.2 ; Mixed obsessional thoughts and acts F42.2 and Borderline personality disorder F60.3 [facility] [address] [facility] [id number] [address] [place] [phone] Mar, Severe episode of recurrent major depressive disorder, without psychotic features F33.2 ; Mixed obsessional thoughts and acts F42.2 ; Borderline personality disorder F60.3 and DANIELA (generalized anxiety disorder) F41.1 [facility] [address] [place] [id number] [address] [place] [phone] Mar, Severe episode of recurrent major depressive disorder, without psychotic features F33.2 ; Mixed obsessional thoughts and acts F42.2 ; DANIELA (generalized anxiety disorder) F41.1 and Borderline personality disorder F60.3 [facility] [address] [id number] [address] [place] [address] [id number] Mar, Dental examination Z01.20 an d Caries K02.9 [facility] [id number] [place] [address] [id number] Mar, Benign essential hypertension I10 and Fa lling episodes R29.6 [facility] [address] [facility] [id number] [address] [place] [phone] Mar, [facility] [address] [facility] [id number] [address] [place] [phone] Mar, Severe episode of recurrent major depressive disorder, without psychotic features F33.2 ; Mixed obsessional thoughts and acts F42.2 ; Borderline personality disorder F60.3 and DANIELA (generalized anxiety disorder) F41.1 [facility] [address] [facility] [id number] [address] [place] [phone] Mar, [facility] [address] [id number] [address] [place] [phone] Mar, [facility] [address] [id number], [place] [id number] Mar, [facility] [address] [facility] [id number] [address] [place] [phone] Mar, Severe episode of recurrent major depressive disorder, without psychotic features F33.2 ; Mixed obsessional thoughts and acts F42.2 ; Borderline personality disorder F60.3 and DANIELA (generalized anxiety disorder) F41.1 [facility] [address] [id number] [address] [place] [phone] Mar, [facility] [address] [id number] [address] [place] [address] [id number] Feb, Dental examination Z01.20 an d Periodontitis K05.30 [facility] [address] [facility] [id number] [address] [place] [phone] 30 Feb, 2019 DANIELA (generalized anxiety dis order) F41.1 ; Severe episode of recurrent major depressive disorder, without psychotic features F33.2 ; Mixed obsessional thoughts and acts F42.2 and Borderline personality disorder F60.3 [facility] [address] [id number], [place] [id number] 30 Feb, 2019 Acute pain of right knee M25.561 ; Fall, initial encounter W19.XXXA ; Benign essential hypertension I10 and Edema R60.9 [facility] [address] [facility] [id number] [address] [place] [phone] Feb, [place] [address] [facility] [id number] [address] [place] [phone] Feb, DANIELA (generalized anxiety dis order) F41.1 ; Severe episode of recurrent major depressive disorder, without psychotic features F33.2 ; Mixed obsessional thoughts and acts F42.2 and Borderline personality disorder F60.3 [place] [address] [facility] [id number] [address] [place] [phone] Feb, [facility] [address] [facility] [id number] [address] [place] [phone] Jan, [place] [address] [facility] [id number] [address] [place] [phone] Jan, [facility] [address] [facility] [id number] [address] [place] [phone] Jan, [facility] [address] [id number], [place] [id number] Jan, Callus of heel L84 ; Fissure in skin R23 .4 and Hammer toe of second toe of right foot M20.41 [facility] [address] [id number], [place] [id number] Jan, [facility] [address] [facility] [id number] [address] [place] [phone] Jan, [place] [address] [place] [id number] [address] [place] [phone] Jan, [place] [address] [place] [id number] [place] [address] Jan, Severe episode of recurrent major depressive disorder, without psychotic features F33.2 ; DANIELA (generalized anxiety disorder) F41.1 ; Mixed obsessional thoughts and acts F42.2 and Borderline personality disorder F60.3 [place] [address] [facility] [id number] [address] [place] [phone] Jan, [facility] [id number] [place] [address] [id number] Jan, Benign essential hypertension I10 [facility] [id number] [place] [address] [id number] Dec, Callous ulcer, limited to breakdown of s kin L98.491 and Morbid obesity E66.01 [place] [address] [place] [id number] [address] [place] [phone] Dec, [place] [address] [place] [id number] [address] [place] [phone] Dec, [place] [address] [place] [id number] [address] [place] [phone] Dec, [place] [address] [place] [id number] [address] [place] [phone] Dec, [place] [address] [place] [id number] [address] [place] [phone] Dec, Severe episode of recurrent major depressive disorder, without psychotic features F33.2 [place] [address] [place] [id number] [address] [place] [phone] Dec, DANIELA (generalized anxiety dis order) F41.1 ; Severe episode of recurrent major depressive disorder, without psychotic features F33.2 ; Mixed obsessional thoughts and acts F42.2 and Dependent personality disorder F60.7 [facility] [id number] [place] [address] [id number] Dec, Morbid obesity E66.01 [facility] [address] [facility] [id number] [address] [place] [phone] Dec, [facility] [address] [facility] [id number] [address] [place] [phone] Dec, [facility] [address] [id number] [address] Nov, [facility] [address] [id number], [place] [id number] Nov, [facility] [address] [facility] [id number] [address] [place] [phone] Nov, [facility] [address] [facility] [id number] [address] [place] [phone] Nov, [facility] [address] [facility] [id number] [address] [place] [phone] Nov, DANIELA (generalized anxiety dis order) F41.1 ; Severe episode of recurrent major depressive disorder, without psychotic features F33.2 ; Mixed obsessional thoughts and acts F42.2 and Dependent personality disorder F60.7 [facility] [address] [id number], [place] [id number] Nov, Morbid obesity E66.01 [facility] [address] [facility] [id number] [address] [place] [phone] Nov, [facility] [address] [facility] [id number] [address] [place] [phone] Nov, DANIELA (generalized anxiety dis order) F41.1 ; Mixed obsessional thoughts and acts F42.2 ; Severe episode of recurrent major depressive disorder, without psychotic features F33.2 and Dependent personality disorder F60.7 [facility] [address] [id number], [place] [id number] October, Morbid obesity E66.01 [facility] [address] [address] [id number], [place] [id number] October, Benign essential hypertension I10 and Mo rbid obesity E66.01 [facility] [address] [id number], [place] [id number] October, [facility] [address] [facility] [id number] [address] [place] [phone] October, Severe episode of recurrent major depressive disorder, without psychotic features F33.[address] [id number], [place] [id number] October, Morbid obesity E66.[address] [id number] [place] [address] [id number] October, [facility] [address] [place] [id number] [address] [place] [phone] October, Severe episode of recurrent major depressive disorder, without psychotic features F33.2 ; DANIELA (generalized anxiety disorder) F41.1 ; Mixed obsessional thoughts and acts F42.2 and Dependent personality disorder F60.[address] [id number], [place] [id number] October, Morbid obesity E66.01 [facility] [address] [id number] [address] [place] [id number] Sep, Dental examination Z01.[address] [id number], [place] [id number] Sep, [facility] [address] [id number] [address] [place] [phone] Sep, Sore in mouth K13.79 and Mor bid obesity E66.01 [facility] [address] [facility] [id number] [address] [place] [phone] Sep, Dental examination Z01.20 [facility] [address] [facility] [id number] [address] [place] [phone] Sep, Anxiety disorder, unspecifie d F41.[id number] [place] [address] [id number] Sep, Mouth ulcer K12.1 [facility] [place] [address] [place] [address] AVE [id number], [place] [id number] Sep, Morbid obesity E66.01 [facility] [place] [address] [place] [address] AVE [id number], [place] [id number] Sep, Allergic rhinitis, unspecified seasonali ty, unspecified trigger J30.9 and Shortness of breath R06.02 [facility] [place] [address] [place] [address] AVE [id number], [place] [id number] Sep, 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 [facility] [id number], [place] [id number] Aug, Mouth abscess K12.2 ; Mouth ulcer K12.1 ; Bloating R14.0 and Morbid obesity E66.01 [facility] [place] [address] [place] [address] AV [id number], [place] [id number] Aug, [facility] [place] [address] [place] [address] AVE [id number], [place] [id number] Aug, [facility] [address] [id number], [place] [id number] Jul, Major depressive disorder, recurrent, mo derate F33.1 ; Abscess of arm, left L02.414 ; BMI 45.0-49.9, adult Z68.42 and Morbid obesity E66.01 [facility] [place] [address] [place] [address] AVE [id number], [place] [id number] Jul, [facility] [id number], [place] [id number] Jul, [facility] [address] [place] [address] AVE [id number], [place] [id number] Jun, Pain in right knee M25.561 and Other chr onic pain G89.29 [facility] [address] [place] [address] AVE [id number], [place] [id number] Jun, Benign essential hypertension I10 ; BMI [...] R45.4 [facility] [address] [facility] [id number] [address] [place] [phone] 16 Jun, [address] [id number] [place] [address] [id number] Jun, Irritable mood R45.4 [facility] [address] [facility] [id number] [address] [place] [phone] May, [facility] [address] [facility] [id number] [address] [place] [phone] May, [facility] [address] [id number] [address] [place] [phone] May, Recurrent major depressive d isorder, in partial remission F33.41 ; Mixed obsessional thoughts and acts F42.2 ; Dependent personality disorder F60.7 and BMI 45.0-49.9, adult Z68.42 [facility] [address] [facility] [id number] [address] [place] [phone] 27 Apr, 2018 [facility] [address] [facility] [id number] [address] [place] [phone] 16 Apr, 2018 [facility] [address] [id number] [address] [place] [phone] Apr, [facility] [address] [facility] [id number] [address] [place] [phone] Apr, [facility] [address] [id number] [address] [place] [phone] Mar, Mixed obsessional thoughts a nd acts F42.2 ; Recurrent major depressive disorder, in partial remission F33.41 ; DANIELA (generalized anxiety disorder) F41.1 and BMI 45.0-49.9, adult Z68.42 [facility] [address] [id number], [place] [id number] Mar, [facility] [address] [id number], [place] [id number] Mar, BMI 45.0-49.9, adult Z68.42 ; Instabilit y of right knee joint M25.361 and Rash R21 [place] [address] [facility] [id number] [address] [place] [phone] Jan, Recurrent major depressive d isorder, in partial remission F33.41 ; Mixed obsessional thoughts and acts F42.2 and BMI 45.0-49.9, adult Z68.42 [facility] [address] [id number], [place] [id number] Jan, [facility] [address] [address] [place] [address] AVE [id number], [place] [id number] Jan, Benign essential hypertension I10 ; BMI 45.0-49.9, adult Z68.42 ; Metabolic syndrome E88.81 and Allergic rhinitis, unspecified seasonality, unspecified trigger J30.9 [place] [address] [facility] [id number] [address] [place] [phone] Dec, DANIELA (generalized anxiety dis order) F41.1 and Depressive disorder, not elsewhere classified F32.9 [facility] [address] [id number], [place] [id number] Dec, Recurrent major depressive disorder, in partial remission F33.41 [facility] [address] [id number], [place] [id number] Dec, [facility] [address] [id number], [place] [id number] Nov, [facility] [address] [id number], [place] [id number] Nov, Recurrent major depressive disorder, in partial remission F33.41 [place] [address] [facility] [id number] [address] [place] [phone] Nov, Recurrent major depressive d isorder, in partial remission F33.41 ; Mixed obsessional thoughts and acts F42.2 ; DANIELA (generalized anxiety disorder) F41.1 and BMI 45.0-49.9, adult Z68.42 [facility] [address] [id number], [place] [id number] Nov, [facility] [address] [id number], [place] [id number] Nov, Other conjunctivitis of both eyes H10.89 and Sciatica, right side M54.31 [facility] [address] [id number], [place] [id number] Nov, [facility] [address] [id number], [place] [id number] Nov, [facility] [address] [id number], [place] [id number] October, [facility] [address] [facility] [address] [id number], [place] [id number] October, [facility] [address] [facility] [id number] [address] [place] [phone] October, BMI 45.0-49.9, adult Z68.42 ; Mixed obsessional thoughts and acts F42.2 ; Recurrent major depressive disorder, in partial remission F33.41 and DANIELA (generalized anxiety disorder) F41.1 [facility] [address] [id number], [place] [id number] October, Benign essential hypertension I10 ; Morb id obesity E66.01 and BMI 45.0-49.9, adult Z68.42 [facility] [address] [id number], KS [id number] Sep, [facility] [address] [id number], [place] [id number] Sep, [facility] [address] [id number], [place] [id number] Sep, [address] [id number], [place] [id number] Sep, Hospital discharge follow-up Z09 ; Aller gic rhinitis, unspecified seasonality, unspecified trigger J30.9 and Shortness of breath R06.[address] [id number], [place] [id number] Sep, Recurrent major depressive disorder, in partial remission F33.[address] [id number], [place] [id number] Aug, Irritable mood R45.4 [place] [address] [place] [phone] Aug, [address] [id number], [place] [id number] Jul, Benign essential hypertension I10 ; Robert a R60.9 and Impacted cerumen of left ear H61.22 [place] [address] [place] [phone] 14 Jul, 2017 Major depression F32.9 ; Rec urrent major depressive disorder, in partial remission F33.41 and Anxiety F41.9 [place] [id number] [place] [phone] Jun, Major depression F32.9 ; Rec urrent major depressive disorder, in partial remission F33.41 and Anxiety F41.[address] [id number], KS [id number] Jun, Major depression F32.9 ; Morbid obesity E66.01 ; Irritable mood R45.4 ; Hand weakness R29.898 and Vitamin D deficiency E55.[address] [id number], [place] [id number] Jun, [address] [id number], [place] [id number] May, Major depression F32.9 [place] [address] [place] [phone] May, Major depression F32.9 [facility] [id number] [place] [address] [id number] May, BMI 50.0-59.9, adult Z68.43 ; Major depr ession F32.9 ; Anxiety F41.9 ; Hypertrophic toenail L60.2 and Pain of left great toe M79.675 [facility] [id number] [place] [address] [id number] May, Recurrent major depressive disorder, in partial remission F33.41 [place] [address] [id number] [address] [place] [phone] Apr, [facility] [id number] [place] [address] [id number] Apr, [place] [address] [place] [phone] Apr, Major depression F32.9 [facility] [id number] [place] [address] [id number] Apr, Severe episode of recurrent major depres sive disorder, without psychotic features F33.2 ; Anxiety F41.9 and Insomnia G47.00 [facility] [id number] [place] [address] [id number] Apr, [place] [address] [id number] [address] [place] [id number] Apr, [facility] [address] [id number], [place] [id number] Apr, [facility] [address] [id number], [place] [id number] Mar, [facility] [id number] [place] [address] [id number] Mar, Allergic conjunctivitis of both eyes H10 .13 [place] [address] [place] [phone] Mar, Major depression F32.9 [facility] [id number] [place] [address] [id number] Mar, Metabolic syndrome E88.81 ; History of g astric bypass Z98.890 ; Benign essential hypertension I10 ; Allergic conjunctivitis of both eyes H10.13 and Morbid obesity E66.01 [place] [address] [facility] [id number] [address] [place] [phone] Mar, Major depression F32.9 [facility] [id number] [place] [address] [id number] Feb, [place] [address] [place] [phone] Feb, Major depression F32.[address] [id number] [place] [address] [id number] Feb, Subacute maxillary sinusitis J01.00 and Bronchitis J40 [place] [address] [facility] [id number] [address] [place] [phone] 06 Feb, 2017 Major depressive disorder, r ecurrent, moderate F33.1 [facility] [address] [id number] [place] [address] [id number] Jan, [address] [id number] [place] [address] [id number] Jan, Acute non-recurrent maxillary sinusitis J01.00 and Skin tag L91.8 [facility] [address] [id number], [place] [id number] Jan, Cough R05 and Sinus congestion R09.81 [address] [id number] [place] [address] [id number] Jan, [address] [id number] [place] [address] [id number] Jan, Benign essential hypertension I10 ; Hist ory of gastric bypass Z98.890 and Nausea and vomiting in adult R11.2 [place] [address] [place] [phone] Jan, Major depressive disorder, r ecurrent, moderate F33.1 [place] [id number] [place] [id number] Dec, Insomnia G47.00 ; Recurrent major depressive disorder, in partial remission F33.41 and Morbid obesity E66.[address] [id number] [place] [address] [id number] Dec, [address] [id number] [place] [address] [id number] Dec, Chronic bacterial conjunctivitis of left eye H10.[address] [place] [address] [id number] Nov, [address] [place] [address] [id number] Nov, Dental examination Z01.[address] [place] [address] [id number] Nov, Benign essential hypertension I10 ; Hist ory of gastric bypass Z98.890 and Nausea and vomiting in adult R11.2 [place] [id number] [place] [phone] Nov, Major depressive disorder, r ecurrent, moderate F33.1 ; Generalized anxiety disorder F41.1 and Insomnia due to other mental disorder F51.05 [place] [id number] [place] [phone] Nov, Recurrent major depressive d isorder, in partial remission F33.41 ; Insomnia G47.00 and Morbid obesity E66.01 [facility] [address] [id number] FANNYKiesha S [id number] October, Abscess of left arm L02.[address] [place] [phone] October, Morbid obesity E66.01 ; Lida r depression F32.9 and Recurrent major depressive disorder, in partial remission F33.41 [facility] [address] [id number], [place] [id number] Sep, Benign essential hypertension I10 ; Morb id obesity E66.01 ; S/P gastric bypass Z98.84 ; Abscess L02.91 and Chronic bacterial conjunctivitis of left eye H10.[address] [id number], [place] [id number] Sep, Dental examination Z01.20 [facility] [address] [facility] [id number] [address] [place] [phone] 11 Sep, 2016 Morbid obesity E66.01 ; Lida r depression F32.9 and Recurrent major depressive disorder, in partial remission F33.41 [place] [address] [place] [id number] [place] [phone] Jul, [facility] [address] [id number] [address] [place] [phone] Jul, Major depressive disorder, r ecurrent, moderate F33.1 [place] [address] [place] [id number] [place] [phone] Jul, Major depressive disorder, r ecurrent, moderate F33.1 and Generalized anxiety disorder F41.[address] [id number], [place] [id number] Jul, Cough R05 [place] [address] [facility] [id number] [address] [place] [phone] 16 Jul, 2016 Morbid obesity E66.01 ; Lida r depression F32.9 and Recurrent major depressive disorder, in partial remission F33.41 [facility] [address] [id number], [place] [id number] Jul, [facility] [address] [id number], [place] [id number] Jul, [address] [place] [address] [id number], [place] [id number] Jul, Gastroenteritis K52.9 and Cough R05 [address] [place] [id number] [place] [address] [id number] Jun, Acute bacterial conjunctivitis of left e ye H10.32 [place] [address] [facility] [id number] [address] [place] [phone] Jun, [place] [address] [facility] [id number] [address] [place] [phone] Jun, Recurrent major depressive d isorder, in partial remission F33.41 [place] [address] [facility] [id number] [address] [place] [phone] May, Major depression F32.9 and M orbid obesity E66.01 [place] [address] [facility] [id number] [address] [place] [id number] May, [address] [id number] [place] [address] [id number] May, Thrush B37.0 [place] [address] [facility] [id number] [address] [place] [phone] Apr, Major depressive disorder, r ecurrent, moderate F33.1 [place] [address] [facility] [id number] [address] [place] [phone] Apr, Insomnia G47.00 ; Major depr ession F32.9 and Recurrent major depressive disorder, in partial remission F33.41 [place] [address] [facility] [id number] [address] [place] [phone] Apr, [place] [address] [facility] [id number] [address] [place] [phone] Apr, Major depression F32.9 and R ecurrent major depressive disorder, in partial remission F33.[address] [address] [id number] [place] [address] [id number] Mar, Benign essential hypertension I10 ; Morb id obesity E66.01 ; Impacted cerumen of both ears H61.23 ; Laceration of finger of right hand, initial encounter S61.219A and Encounter for immunization Z23 [facility] [address] [facility] [id number] [address] [place] [phone] Mar, [facility] [address] [facility] [id number] [address] [place] [phone] Mar, [facility] [address] [facility] [id number] [address] [place] [phone] Mar, [facility] [address] [id number], [place] [id number] Feb, Nausea R11.0 ; Blood in the stool K92.1 and Benign essential hypertension I10 [facility] [address] [facility] [id number] [address] [place] [id number] Feb, Major depression F32.9 and R ecurrent major depressive disorder, in partial remission F33.41 [facility] [address] [id number], [place] [id number] Feb, [facility] [address] [id number], [place] [id number] Feb, Recurrent major depressive disorder, in partial remission F33.41 [facility] [address] [id number], [place] [id number] Jan, [facility] [address] [id number], [place] [id number] Jan, Benign essential hypertension I10 ; Robert a R60.9 and Hyperlipidemia, unspecified hyperlipidemia type E78.5 [facility] [address] [id number], [place] [id number] Jan, Recurrent major depressive disorder, in partial remission F33.41 [facility] [address] [id number] [place] S [id number] Jan, [facility] [address] [id number], [place] [id number] Jan, [facility] [address] [id number], [place] [id number] Jan, [facility] [address] [facility] [id number] [address] [place] [phone] Jan, [facility] [address] [facility] [id number] [address] [place] [phone] Dec, [facility] [address] [facility] [id number] [address] [place] [phone] Nov, [facility] [address] [facility] [id number] [address] [place] [phone] Nov, Major depression F32.9 [facility] [address] [place] [id number] [place] [phone] Nov, [facility] [address] [facility] [id number] [address] [place] [phone] Nov, [facility] [address] [place] [id number] [address] [place] [phone] Nov, Major depressive disorder, r ecurrent episode, mild F33.0 and Anxiety F41.[id number] [place] [address] [id number] Nov, [id number] [place] [address] [id number] October, Left elbow pain M25.522 and Other season al allergic rhinitis J30.[id number] [place] [address] [id number] October, [facility] [address] [facility] [id number] [address] [place] [id number] October, Major depressive disorder, r ecurrent, moderate F33.1 [facility] [address] [facility] [id number] [address] [place] [phone] October, Major depression F32.9 [facility] [address] [facility] [id number] [address] [place] [phone] Sep, [place] or callus L84 and Onych omycosis B35.1 [facility] [address] [facility] [id number] [address] [place] [phone] 18 Sep, 2015 Major depressive disorder, r ecurrent, moderate F33.1 [facility] [address] [facility] [id number] [address] [place] [phone] 18 Sep, 2015 Major depression F32.9 [facility] [address] [facility] [id number] [address] [place] [phone] 13 Sep, 2015 Moderate episode of recurren t major depressive disorder F33.1 [facility] [address] [id number], [place] [id number] Sep, Muscle strain T14.8 [facility] [address] [facility] [id number] [address] [place] [phone] Aug, Major depression F32.9 [facility] [address] [facility] [id number] [address] [place] [phone] Aug, Major depression F32.9 [facility] [address] [facility] [id number] [address] [place] [phone] Jul, Morbid obesity E66.01 and Ma cora depression F32.9 [facility] [address] [facility] [id number] [address] [place] [id number] Jul, Depression, major, recurrent , moderate F33.1 [facility] [address] [id number] [id number] Jul, [facility] [address] [facility] [id number] [address] [place] [id number] Jul, [facility] [address] [facility] [id number] [address] [place] [id number] Jul, Major depression F32.9 and M orbid obesity E66.01 [facility] [address] [id number] [id number] Jul, Type II diabetes mellitus E11.9 ; Callus of foot L84 ; Benign essential hypertension I10 and Renal insufficiency N28.9 [facility] [address] [facility] [id number] [address] [place] [id number] 09 Jul, 2015 Depression, major, recurrent , moderate F33.1 [place] [address] [place] [id number] [address] [place] [phone] 05 Jul, 2015 Major depression F32.9 [place] [address] [id number] Jul, [place] [id number] [place] [id number] Jun, Major depression F32.9 [place] [address] [id number] Jun, Major depressive disorder, r ecurrent, moderate F33.1 [place] [address] [id number] Jun, [place] [address] [id number] Jun, Major depressive disorder, r ecurrent, moderate F33.1 and Major depression F32.[address] [place] [address] [id number] [id number] Jun, Type II diabetes mellitus E11.9 [place] [address] [address] [place] [id number] [address] [place] [phone] Jun, Depression, major, recurrent , moderate F33.1 [place] [address] [facility] [id number] [address] [place] [id number] May, Major depressive disorder, r ecurrent, moderate F33.1 [place] [address] [place] [id number] [place] [address] May, [facility] [id number] [place] [id number] May, Edema R60.9 [place] [id number] [place] [address] 17 May, 2015 Insomnia G47.00 and Major de pression F32.9 [facility] [address] [id number] [id number] May, Morbid obesity E66.01 ; Edema R60.9 ; Sh ortness of breath R06.02 ; Benign essential hypertension I10 and Renal insufficiency N28.[address] [place] [address] [id number][place] [id number] May, Hyperlipemia 272.4 and Renal insufficien cy N28.9 [place] [address] [facility] [id number] [address] [place] [id number] Apr, Major depression F32.9 [place] [address] [facility] [id number] [address] [place] [address] Apr, [place] [address] [facility] [id number] [address] [place] [address] Apr, Major depressive disorder, r ecurrent, moderate F33.[id number] [place] [id number] Apr, Type II diabetes mellitus E11.9 ; Benign essential hypertension I10 ; Edema R60.9 and Renal insufficiency N28.9 [place] [address] [facility] [id number] [address] [place] [phone] Mar, Major depressive disorder, r ecurrent, moderate F33.1 [place] [address] [facility] [id number] [address] [place] [id number] Mar, [place] [address] [facility] [id number] [address] [place] [address] Mar, Major depression F32.9 [facility] [address] [id number][place] [id number] Mar, Morbid obesity E66.01 ; Benign essential hypertension I10 and Type II diabetes mellitus E11.9 [place] [address] [facility] [id number] [address] [place] [address] Feb, Major depressive disorder, r ecurrent, moderate F33.1 [place] [address] [facility] [id number] [address] [place] [address] Feb, Major depressive disorder, r ecurrent episode, in partial or unspecified remission 296.35 ; Anxiety state, unspecified 300.00 and Morbid obesity 278.01 [place] [address] [address] [place] [id number] [address] [place] [address] Feb, [address] [id number] [place] [id number] Feb, Vomiting 787.03 and Viral syndrome 079.9 9 [place] [address] [address] [place] [id number] [address] [place] [id number] Feb, Major depression, recurrent 296.30 ; Generalized anxiety disorder 300.02 and No condition on [place] II V71.[address] [id number] [place] [address] [id number] Feb, Skin tag 701.9 [place] [address] [facility] [id number] [address] [place] [id number] Feb, [place] [address] [facility] [id number] [address] [place] [address] Jan, Depression, major, recurrent , moderate 296.[address] [id number] [place] [address] [id number] Jan, Nausea and vomiting 787.01 ; Rib pain on right side 786.50 and Fall on or from sidewalk curb E880.1 [place] [address] [facility] [id number] [address] [place] [address] Jan, [place] [address] [facility] [id number] [address] [place] [phone] Jan, Major depressive disorder, r ecurrent episode, in partial or unspecified remission 296.35 and Anxiety state, unspecified 300.[address] [place] [address] [id number][place] [id number] Jan, [facility] [address] [facility] [id number] [address] [place] [phone] Jan, Depression, major, recurrent , moderate 296.32 [facility] [address] [facility] [id number] [address] [place] [address] Jan, Major depression, recurrent 296.30 ; No condition on [place] II V71.09 and No condition on axis III V71.09 [facility] [address] [id number][place] [id number] Jan, Drug-induced nausea and vomiting 787.01 [place] [id number] [address] [place] [phone] Jan, Depression, major, recurrent , moderate 296.32 [facility] [address] [place] [id number] [address] [place] [id number] Dec, Depression, major, recurrent , moderate 296.32 [facility] [address] [id number][place] [id number] Dec, Morbid obesity 278.01 ; Metabolic syndro me 277.7 ; Hyperlipemia 272.4 ; Benign essential hypertension 401.1 ; Dietary counseling V65.3 ; Exercise counseling V65.41 and Inflamed skin tag 701.9 [facility] [address] [place] [address] [id number] [place] [address] Dec, Depression, major, recurrent , moderate 296.32 [facility] [address] [facility] [id number] [address] [place] [id number] Dec, [facility] [address] [place], [place] [id number] [address] [place] [address] Dec, Major depression, recurrent 296.30 ; Anxiety, generalized 300.02 and No condition on [place] II V71.09 [facility] [address] [place] [address] [id number] [place] [address] Dec, Depression, major, recurrent , moderate 296.32 [place] [address] [address] [place] [id number] [address] [place] [id number] Dec, Major depressive disorder, r ecurrent episode, moderate 296.32 [place] [address] [address] [place] [id number] [address] [place] [address] Dec, Depression, major, recurrent , moderate 296.32 [place] [id number] Dec, Depression, major, recurrent , moderate 296.32 [place] 133[address] Dec, Depression, major, recurrent , moderate 296.32 [place] 133[address] Dec, Depression, major, recurrent , moderate 296.32 [place] 133[address] Nov, Depression, major, recurrent , moderate 296.[address] [address] Nov, Major depression 296.20 ; So cial phobia 300.23 and No condition on [place] II V71.[address] [phone] Nov, Depression, major, recurrent , moderate 296.32 [place] [id number] Nov, Major depressive disorder, r ecurrent episode, moderate 296.32 and Generalized anxiety disorder 300.02 [place] 133[address] Nov, Depression, major, recurrent , moderate 296.32 [place] [id number] Nov, Depression, major, recurrent , moderate 296.32 [place] [id number] [address] [place] [id number] 07 Oct, 2014 Generalized anxiety disorder 300.02 ; No condition on [place] II V71.09 and Major depressive disorder, recurrent 296.30 [facility] [address] [id number] [address] [place] [id number] 14 Sep, 2014 [facility] [address] [id number] [address] [place] [id number] Sep, [facility] [address] [id number] [address] [place] [id number] 24 Aug, 2014 [facility] [address] [id number] [address] [place] [id number] 24 Aug, 2014 [facility] [address] [id number] [address] [place] [phone] Aug, [facility] [address] [id number] [address] [place] [id number] 23 Aug, 2014 [facility] [address] [id number] [address] [place] [id number] 20 Aug, 2014 [facility] [address] [id number] [address] [place] [id number] 20 Aug, 2014 [facility] [address] [id number] [address] [place] [id number] 20 Aug, 2014 [facility] [address] [id number] [address] [place] [id number] 20 Aug, 2014 [facility] [address] [id number] [address] [place] [id number] 13 Aug, 2014 [facility] [address] [id number] [address] [place] [id number] 13 Aug, 2014 [facility] [address] [id number] [address] [place] [id number] 13 Aug, 2014 [facility] [address] [id number] [address] [place] [id number] Aug, [facility] [address] [id number] [address] [place] [address], [place] [address] Aug, [facility] [address] [id number] [address] [place] [address], [place] [address] Aug, [facility] [address] [id number] [address] [place] [address], [place] [address] Aug, [facility] [address] [id number] [address] [place] [address], [place] [address] Aug, [facility] [address] [id number] [address] [place] [address], [place] [address] Aug, [facility] [address] [id number] [address] [place] [address], [place] [address] Aug, [facility] [address] [id number] [address] [place] [address], [place] [address] Jul, [facility] [address] [id number] [address] [place] [address], [place] [address] Jul, [facility] [address] [id number] [address] [place] [address], [place] [address] Jul, [facility] [address] [id number] [address] [place] [address], [place] [address] Jul, [facility] [address] [id number] [address] [place] [address], [place] [address] Jul, [facility] [address] [id number] [address] [place] [address], [place] [address] Jul, [facility] [address] [id number] [address] [place] [address], [place] [address] Jun, [facility] [address] [id number] [address] [place] [address], [place] [address] Jun, [facility] [address] [id number] [address] [place] [address], [place] [address] Jun, [facility] [address] [id number] [address] [place] [id number] Jun, [facility] [address] [id number] [address] [place] [address], [place] [address] Jun, [facility] [address] [id number] [address] [place] [address], [place] [address] Jun, [facility] [address] [id number] [address] [place] [address], [place] [address] Jun, [facility] [address] [id number] [address] [place] [address], [place] [address] Jun, [facility] [address] [id number] [address] [place] [address], [place] [address] Jun, [facility] [address] [id number] [address] [place] [address], [place] [address] Jun, [facility] [address] [id number] [address] [place] [address], [place] [address] Jun, [facility] [address] [id number] [address] [place] [address], [place] [address] Jun, [facility] [address] [id number] [place] [id number] Jun, [facility] [address] [id number] [address] [place] [address], [place] [address] Jun, [facility] [address] [id number] [address] [place] [address], [place] [address] Jun, [facility] [address] [id number] [address] [place] [address], [place] [address] Jun, [facility] [address] [id number] [address] [place] [address], [place] [address] May, [facility] [address] [id number] [address] [place] [address], [place] [address] May, [facility] [address] [id number] [address] [place] [address], [place] [address] May, [facility] [address] [id number] [address] [place] [address], [place] [address] 05 May, 2014 [facility] [address] [id number] [address] [place] [address], [place] [address] Apr, [facility] [address] [id number] [address] [place] [address], [place] [address] Apr, [facility] [address] [id number] [address] [place] [address], [place] [address] Apr, [facility] [address] [id number] [address] [place] [address], [place] [address] Apr, [facility] [address] [id number] [address] [place] [address], [place] [address] Apr, [facility] [address] [id number] [address] [place] [address], [place] [address] Apr, [facility] [address] [id number] [address] [place] [address], [place] [address] Apr, [facility] [address] [id number] [address] [place] [address], [place] [address] Apr, [facility] [address] [id number] [address] [place] [address], [place] [address] Apr, [facility] [address] [id number] [address] [place] [address], [place] [address] Apr, [facility] [address] [id number] [address] [place] [address], [place] [address] Apr, [facility] [address] [id number] [address] [place] [address], [place] [address] Apr, [facility] [address] [id number] [address] [place] [address], [place] [address] Apr, [facility] [address] [id number] [address] [place] [address], [place] [address] Apr, [facility] [address] [id number] [address] [place] [address], [place] [address] Apr, [facility] [address] [id number] [address] [place] [address], [place] [address] Apr, [facility] [address] [id number] [address] [place] [address], [place] [address] Apr, [facility] [address] [id number] [address] [place] [address], [place] [address] Apr, [facility] [address] [id number] [address] [place] [address], [place] [address] Apr, [facility] [address] [id number] [address] [place] [address], [place] [address] Apr, [facility] [address] [id number] [address] [place] [address], [place] [address] Mar, [facility] [address] [id number] [address] [place] [address], [place] [address] Mar, [facility] [address] [id number] [address] [place] [address], [place] [address] Mar, [facility] [address] [id number] [address] [place] [address], [place] [address] Mar, [facility] [address] [id number] [address] [place] [address] Mar, [facility] [address] [id number] [address] [place] [address] Mar, [facility] [address] [id number] [address] [place] [address] Mar, [facility] [address] [id number] [address] [place] [address], [place] [address] Mar, [facility] [address] [id number] [address] [place] [address], [place] [address] Mar, [facility] [address] [id number] [address] [place] [address] Mar, [facility] [address] [id number] [address] [place] [address] Feb, [facility] [address] [id number] [address] [place] [address], [place] [address] Feb, [facility] [address] [id number] [address] [place] [address], [place] [address] Feb, [facility] [address] [id number] [address] [place] [address], [place] [address] Feb, [facility] [address] [id number] [address] [place] [address], [place] [address] Jan, [facility] [address] [id number] [address] [place] [address], [place] [address] Jan, [facility] [address] [id number] [address] [place] [address], [place] [address] Jan, [facility] [address] [id number] [address] [place] [address], [place] [address] Jan, [facility] [address] [id number] [address] [place] [address], [place] [address] Jan, [facility] [address] [id number] [address] [place] [address], [place] [address] Jan, [facility] [address] [id number] [address] [place] [address], [place] [address] Dec, [facility] [address] [id number] [address] [place] [address], [place] [address] Dec, [facility] [address] [id number] [address] [place] [address], [place] [address] Nov, [facility] [address] [id number] [address] [place] [address], [place] [address] Nov, [facility] [address] [id number] [address] [place] [address], [place] [address] Nov, [facility] [address] [id number] [address] [place] [address], [place] [address] Nov, [facility] [address] [id number] [address] [place] [address], [place] [address] Nov, [facility] [address] [id number] [address] [place] [address], [place] [address] Nov, [facility] [address] [id number] [address] [place] [address], [place] [address] Sep, [facility] [address] [id number] [address] [place] [address], [place] [address] Sep, [facility] [address] [id number] [address] [place] [address], [place] [address] Sep, [facility] [address] [id number] [address] [place] [address], [place] [address] Sep, [facility] [address] [id number] [address] [place] [address], [place] [address] Aug, [facility] [address] [id number] [address] [place] [address], [place] [address] Aug, [facility] [address] [id number] [address] [place] [address], [place] [address] Jul, [facility] [address] [id number] [address] [place] [address], [place] [address] Jul, [facility] [address] [id number] [address] [place] [address], [place] [address] Jun, [facility] [address] [id number] [address] [place] [address], [place] [address] Jun, [facility] [address] [id number] [address] [place] [address], [place] [address] Jun, [facility] [address] [id number] [address] [place] [address], [place] [address] Jun, [facility] [address] [id number] [address] [place] [address], [place] [address] May, [facility] [address] [id number] [address] [place] [address], [place] [address] May, [facility] [address] [id number] [address] [place] [address], [place] [address] May, [facility] [address] [id number] [address] [place] [address], [place] [address] May, [facility] [address] [id number] [address] [place] [address], [place] [address] May, [facility] [address] [id number] [address] [place] [address], [place] [address] May, [facility] [address] [id number] [address] [place] [address], [place] [address] Apr, [facility] [address] [id number] [address] [place] [phone] Apr, [facility] [address] [id number] [address] [place] [address], [place] [address] Apr, [facility] [address] [id number] [address] [place] [address], [place] [address] Apr, [facility] [address] [id number] [address] [place] [address], [place] [address] Mar, [facility] [address] [id number] [address] [place] [phone] Mar, [facility] [address] [id number] [address] [place] [phone] Mar, [facility] [address] [id number] [address] [place] [phone] Mar, [facility] [address] [id number] [address] [place] [address], [place] [address] Feb, [facility] [address] [id number] [place] [id number] Jan, [facility] [address] [id number] [address] [place] [phone] Jan, [facility] [address] [id number] [address] [place] [phone] 19 Dec, 2012 [facility] [address] [id number] [address] [place] [phone] 15 Dec, 2012 [facility] [address] [facility] [id number] [address] [place] [phone] 10 Dec, 2012 [facility] [address] [id number] [id number] 08 Dec, 2012 [facility] [address] [id number] [address] [place] [id number] 17 Nov, 2012 [facility] [address] [id number] [address] [place] [phone] Nov, [facility] [address] [facility] [id number] [address] [place] [phone] Nov, [facility] [address] [facility] [id number] [address] [place] [phone] Nov, [facility] [address] [facility] [id number] [address] [place] [phone] Nov, [facility] [address] [facility] [id number] [address] [place] [phone] October, [facility] [address] [facility] [id number] [address] [place] [phone] October, [facility] [address] [facility] [id number] [address] [place] [phone] Aug, [facility] [address] [facility] [id number] [address] [place] [phone] Nov, IMMUNIZATIONS No Known Immunizations SOCIAL HISTORY Never Assessed REASON FOR VISIT PLAN OF CARE VITAL SIGNS Height 72 in 2013-04-18 Weight 439.6 lbs 2013-04-18 Temperature 98.6 degrees Fahrenheit 2013-04-18 Heart Rate 80 bpm 2013-04-18 Respiratory Rate 18 2013-04-18 Blood pressure systolic 138 mmHg 2013-04-18 Blood pressure diastolic 80 mmHg 2013-04-18 MEDICATIONS Unknown Medications RESULTS No Results PROCEDURES [...]
--- OUTSIDE RECORDS SUMMARY | 2019-12-27 11:15 | XMS REPORT ---
Author Author Curt DIAZ [facility] Address [address] [place] [address] Care Team Providers Care Juice Standardizer Name Role Phone CHRIS DIAZ Unavailable PROBLEMS Type Condition ICD9-CM Code [id number] Code Onset Dates Condition S tatus SNOMED Code Problem Edema R60.9 Active 724129173 Problem Morbid obesity E66.01 Active 62920 6002 Problem Metabolic syndrome E88.81 Active 2 57092425 Problem Renal insufficiency N28.9 Active 906814072 Problem Vitamin D deficiency E55.9 Active 35439518 Problem Severe episode of recurrent major depressive disorder, without psychotic features F33.2 Active 40019831 Problem DANIELA (generalized anxiety disorder) F41.1 Active 32412466 Problem Mixed obsessional thoughts and acts F42.2 Active 62936558 Problem Chronic fatigue R53.82 Active 8422 9001 Problem Other chronic pain G89.29 Active 8 5490417 Problem Borderline personality disorder F60.3 Active 02131129 Problem Attachment disorder F94.1 Active Problem Sciatica, right side M54.31 Active 216852431607245 Problem Insomnia G47.00 Active 050992254 Problem Anxiety F41.9 Active 94571433 Problem BMI 45.0-49.9, adult Z68.42 Active 849048443 Problem Hyperlipemia E78.5 Active 8646680 4 Problem Benign essential hypertension I10 Active 3865608 Problem Callous ulcer, limited to breakdown of skin L98.49 1 Active Problem Hammer toe of right foot M20.41 Activ e 787471246 Problem Hammer toe of second toe of right foot M20.41 Active 730981830 Problem Falling episodes R29.6 Active 161 [id number] ALLERGIES No Information ENCOUNTERS Encounter Location Date Diagnosis [facility] [address] [facility] [id number] [place] [address] Dec, [facility] [place] [address] [id number] [place] [id number] Dec, [facility] [address] [facility] [id number] [address] [place] [phone] Nov, DANIELA (generalized anxiety dis order) F41.1 ; Severe episode of recurrent major depressive disorder, without psychotic features F33.2 ; Mixed obsessional thoughts and acts F42.2 and Borderline personality disorder F60.3 [facility] [address] [id number] [place] [id number] Nov, [facility] [address] [facility] [id number] [address] [place] [phone] Nov, [facility] [address] [id number] [place] [id number] Nov, [facility] [address] [facility] [id number] [address] [place] [phone] Nov, Benign essential hypertensio n I10 [facility] [address] [id number] [place] [id number] Nov, [facility] [address] [facility] [id number] [address] [place] [phone] Nov, [facility] [address] [facility] [id number] [address] [place] [phone] Nov, [facility] [address] [facility] [address] [id number] [place] [id number] October, Benign essential hypertension I10 [facility] [address] [facility] [id number] [address] [place] [phone] October, DANIELA (generalized anxiety dis order) F41.1 ; Severe episode of recurrent major depressive disorder, without psychotic features F33.2 ; Mixed obsessional thoughts and acts F42.2 and Borderline personality disorder F60.[address] 340[address] [id number] [address] October, [facility] [address] [id number] [place]INGS[place] [id number] October, [facility] [address] [id number] [address] [address] October, [facility] [address] [id number] [place] [id number] Sep, [facility] [address] [facility] [id number] [address] [place] [phone] Sep, [facility] [address] [id number] [place] [id number] Sep, [facility] [address] [facility] [id number] [address] [place] [phone] Sep, [facility] [address] [facility] [id number] [address] [place] [phone] Sep, [facility] [address] [facility] [id number] [address] [place] [phone] Sep, [facility] [address] [facility] [id number] [address] [place] [phone] Sep, [facility] [address] [facility] [id number] [address] [place] [phone] Sep, DANIELA (generalized anxiety dis order) F41.1 ; Severe episode of recurrent major depressive disorder, without psychotic features F33.2 ; Mixed obsessional thoughts and acts F42.2 and Borderline personality disorder F60.3 [facility] [address] [place] [address] [facility] [id number] [address] Sep, Severe episode of recurrent major depres sive disorder, without psychotic features F33.2 [facility] [address] [id number] [place] [id number] Sep, [facility] [address] [id number] [place] [id number] Sep, [facility] [address] [id number] [place] [id number] Sep, Benign essential hypertension I10 [facility] [address] [facility] [id number] [address] [place] [phone] 08 Sep, 2019 [facility] [address] [facility] [id number] [address] [place] [phone] Sep, [facility] [address] [facility] [id number] [address] [place] [phone] Sep, [facility] [address] [facility] [id number] [address] [place] [address] Sep, DANIELA (generalized anxiety dis order) F41.1 ; Severe episode of recurrent major depressive disorder, without psychotic features F33.2 ; Mixed obsessional thoughts and acts F42.2 and Borderline personality disorder F60.3 [facility] [address] [id number] [place] [id number] Aug, [facility] [address] [facility] [id number] [address] [place] [phone] Aug, [place] [id number] [place] [id number] Aug, [facility] [address] [facility] [id number] [address] [place] [phone] Aug, [facility] [id number] [place] [id number] Aug, Dizzy R42 ; Weight gain R63.5 ; Benign e ssential hypertension I10 ; Falling episodes R29.6 and History of gastric bypass Z98.84 [facility] [address] [facility] [id number] [address] [place] [phone] 14 Aug, 2019 [facility] [address] [facility] [id number] [address] [place] [phone] 13 Aug, 2019 [facility] [address] [facility] [id number] [address] [place] [phone] 11 Aug, 2019 DANIELA (generalized anxiety dis order) F41.1 ; Severe episode of recurrent major depressive disorder, without psychotic features F33.2 ; Mixed obsessional thoughts and acts F42.2 and Borderline personality disorder F60.3 [facility] [address] [id number] [place] [id number] Aug, [facility] [address] [id number] [place] [id number] Aug, [facility] [address] [facility] [id number] [address] [place] [phone] Aug, [facility] [address] [id number] [place] [id number] Aug, [facility] [address] [id number] [place] [id number] Aug, [facility] [address] [facility] [id number] [address] [place] [phone] Aug, [facility] [address] [id number] [place] [id number] Aug, Severe episode of recurrent major depres sive disorder, without psychotic features F33.2 ; Borderline personality disorder F60.3 ; Anxiety F41.9 and Attachment disorder F94.1 [facility] [address] [facility] [id number] [address] [place] [phone] Jul, [facility] [address] [facility] [id number] [address] [place] [address] Jul, DANIELA (generalized anxiety dis order) F41.1 ; Severe episode of recurrent major depressive disorder, without psychotic features F33.2 ; Mixed obsessional thoughts and acts F42.2 and Borderline personality disorder F60.3 [facility] [address] [id number] [place]INGS[place] [id number] Jul, [facility] [address] [facility] [id number] [address] [place] [phone] Jul, [facility] [address] [facility] [id number] [address] [place] [phone] Jul, [facility] [address] [facility] [id number] [address] [place] [phone] Jul, [place] [address] [facility] [id number] [address] [place] [phone] Jul, [place] [address] [facility] [id number] [address] [place] [phone] Jun, DANIELA (generalized anxiety dis order) F41.1 ; Severe episode of recurrent major depressive disorder, without psychotic features F33.2 ; Mixed obsessional thoughts and acts F42.2 and Borderline personality disorder F60.[address] [place] [id number] [place] [id number] Jun, [id number] [place] [address] [id number] Jun, [place] [address] [facility] [id number] [address] [place] [phone] Jun, [place] [address] [facility] [id number] [address] [place] [phone] Jun, DANIELA (generalized anxiety dis order) F41.1 ; Severe episode of recurrent major depressive disorder, without psychotic features F33.2 ; Mixed obsessional thoughts and acts F42.2 and Borderline personality disorder F60.[id number] [place] [id number] Jun, [id number] [place] [id number] Jun, [address] [id number] [place] [address] [id number] Jun, [address] [id number] [place] [address] [id number] Jun, Benign essential hypertension I10 ; Morb id obesity E66.01 ; Severe episode of recurrent major depressive disorder, without psychotic features F33.2 ; Excess skin L98.7 and Hyperlipemia E78.5 [place] [address] [facility] [id number] [address] [place] [phone] Jun, [place] [address] [facility] [id number] [address] [place] [phone] May, [facility] [address] [facility] [id number] [address] [place] [phone] May, Severe episode of recurrent major depressive disorder, without psychotic features F33.2 ; Mixed obsessional thoughts and acts F42.2 ; DANIELA (generalized anxiety disorder) F41.1 and Borderline personality disorder F60.3 [facility] [address] [facility] [id number] [address] [place] [phone] May, [facility] [address] [facility] [id number] [address] [place] [phone] May, DANIELA (generalized anxiety dis order) F41.1 ; Severe episode of recurrent major depressive disorder, without psychotic features F33.2 ; Mixed obsessional thoughts and acts F42.2 and Borderline personality disorder F60.3 [facility] [address] [facility] [id number] [address] [place] [phone] May, [facility] [address] [facility] [id number] [address] [place] [phone] May, [facility] [address] [facility] [id number] [address] [place] [phone] May, Severe episode of recurrent major depressive disorder, without psychotic features F33.2 ; Mixed obsessional thoughts and acts F42.2 ; Borderline personality disorder F60.3 and DANIELA (generalized anxiety disorder) F41.1 [facility] [address] [facility] [id number] [address] [place] [address] [id number] May, Caries K02.9 [facility] [address] [id number] [place] [id number] May, Benign essential hypertension I10 [facility] [address] [id number] [place] [id number] Apr, [facility] [address] [id number] [place] [id number] Apr, Benign essential hypertension I10 [facility] [address] [facility] [id number] [address] [place] [phone] Apr, Borderline personality disor romero F60.3 ; DANIELA (generalized anxiety disorder) F41.1 ; Mixed obsessional thoughts and acts F42.2 and Severe episode of recurrent major depressive disorder, without psychotic features F33.2 [facility] [address] [id number] [place] [id number] Apr, [facility] [address] [id number] [place] [id number] Apr, Benign essential hypertension I10 [facility] [address] [facility] [id number] [address] [place] [phone] Apr, Severe episode of recurrent major depressive disorder, without psychotic features F33.2 ; DANIELA (generalized anxiety disorder) F41.1 ; Borderline personality disorder F60.3 and Mixed obsessional thoughts and acts F42.2 [facility] [id number] [place] [address] [id number] Apr, Dental examination Z01.20 [facility] [address] [id number] [address] [place] [address] [id number] Apr, Caries K02.9 and Dental exam ination Z01.20 [facility] [address] [place] [id number] [address] [place] [phone] Apr, DANIELA (generalized anxiety dis order) F41.1 ; Severe episode of recurrent major depressive disorder, without psychotic features F33.2 ; Mixed obsessional thoughts and acts F42.2 and Borderline personality disorder F60.3 [facility] [address] [place] [id number] [address] [place] [phone] Mar, Severe episode of recurrent major depressive disorder, without psychotic features F33.2 ; Mixed obsessional thoughts and acts F42.2 ; Borderline personality disorder F60.3 and DANIELA (generalized anxiety disorder) F41.1 [facility] [address] [place] [id number] [address] [place] [phone] Mar, Severe episode of recurrent major depressive disorder, without psychotic features F33.2 ; Mixed obsessional thoughts and acts F42.2 ; DANIELA (generalized anxiety disorder) F41.1 and Borderline personality disorder F60.3 [facility] [address] [id number] [address] [place] [address] [id number] Mar, Dental examination Z01.20 an d Caries K02.9 [facility] [address] [facility] [address] [id number] [place]INGS[place] [id number] Mar, Benign essential hypertension I10 and Fa lling episodes R29.6 [facility] [address] [id number] [address] [place] [phone] Mar, [facility] [address] [id number] [address] [place] [phone] Mar, Severe episode of recurrent major depressive disorder, without psychotic features F33.2 ; Mixed obsessional thoughts and acts F42.2 ; Borderline personality disorder F60.3 and DANIELA (generalized anxiety disorder) F41.1 [facility] [address] [id number] [address] [place] [phone] Mar, [facility] [address] [id number] [address] [place] [phone] Mar, [facility] [address] [place] [address] A[place] [id number] [place] [id number] Mar, [facility] [address] [facility] [id number] [address] [place] [phone] Mar, Severe episode of recurrent major depressive disorder, without psychotic features F33.2 ; Mixed obsessional thoughts and acts F42.2 ; Borderline personality disorder F60.3 and DANIELA (generalized anxiety disorder) F41.1 [facility] [address] [id number] [address] [place] [phone] Mar, [facility] [address] [id number] [address] [place] [address] [id number] Feb, Dental examination Z01.20 an d Periodontitis K05.30 [facility] [address] [id number] [address] [place] [phone] Feb, DANIELA (generalized anxiety dis order) F41.1 ; Severe episode of recurrent major depressive disorder, without psychotic features F33.2 ; Mixed obsessional thoughts and acts F42.2 and Borderline personality disorder F60.3 [facility] [address] [id number] [place] [id number] 30 Feb, 2019 Acute pain of right knee M25.561 ; Fall, initial encounter W19.XXXA ; Benign essential hypertension I10 and Edema R60.9 [facility] [address] [id number] [address] [place] [phone] Feb, [facility] [address] [id number] [address] [place] [phone] Feb, DANIELA (generalized anxiety dis order) F41.1 ; Severe episode of recurrent major depressive disorder, without psychotic features F33.2 ; Mixed obsessional thoughts and acts F42.2 and Borderline personality disorder F60.3 [facility] [address] [facility] [id number] [address] [place] [phone] Feb, [facility] [address] [id number] [address] [place] [phone] Jan, [facility] [address] [facility] [id number] [address] [place] [phone] Jan, [facility] [address] [id number] [address] [place] [phone] Jan, [facility] [id number] [place] [id number] Jan, Callus of heel L84 ; Fissure in skin R23 .4 and Hammer toe of second toe of right foot M20.41 [facility] [address] [place] [address] A[place] [id number] [place] [id number] Jan, [facility] [address] [facility] [id number] [address] [place] [phone] Jan, [facility] [address] [facility] [id number] [address] [place] [phone] Jan, [facility] [address] [facility] [id number] [address] [place] [phone] Jan, Severe episode of recurrent major depressive disorder, without psychotic features F33.2 ; DANIELA (generalized anxiety disorder) F41.1 ; Mixed obsessional thoughts and acts F42.2 and Borderline personality disorder F60.3 [facility] [address] [facility] [id number] [address] [place] [phone] Jan, [place] [address] [id number] SPRINGS, [place] [id number] Jan, Benign essential hypertension I10 [facility] [id number] [place] [address] [id number] Dec, Callous ulcer, limited to breakdown of s kin L98.491 and Morbid obesity E66.01 [facility] [address] [facility] [id number] [address] [place] [phone] Dec, [place] [address] [facility] [id number] [address] [place] [phone] Dec, [facility] [address] [facility] [id number] [address] [place] [phone] Dec, [place] [address] [facility] [id number] [address] [place] [phone] Dec, [facility] [address] [facility] [id number] [address] [place] [phone] Dec, Severe episode of recurrent major depressive disorder, without psychotic features F33.2 [facility] [address] [facility] [id number] [address] [place] [phone] Dec, DANIELA (generalized anxiety dis order) F41.1 ; Severe episode of recurrent major depressive disorder, without psychotic features F33.2 ; Mixed obsessional thoughts and acts F42.2 and Dependent personality disorder F60.7 [facility] [address] [id number] [place] [id number] Dec, Morbid obesity E66.01 [facility] [address] [facility] [id number] [address] [place] [phone] Dec, [facility] [address] [facility] [id number] [address] [place] [phone] Dec, [facility] JENNY LICEA [id number] [place] [address] Nov, [facility] [address] [id number] SPRINGS, [place] [id number] Nov, [facility] [address] [facility] [id number] [address] [place] [phone] Nov, [facility] [address] [facility] [id number] [address] [place] [phone] Nov, [facility] [address] [facility] [id number] [address] [place] [phone] Nov, DANIELA (generalized anxiety dis order) F41.1 ; Severe episode of recurrent major depressive disorder, without psychotic features F33.2 ; Mixed obsessional thoughts and acts F42.2 and Dependent personality disorder F60.7 [facility] [address] [id number] [id number] Nov, Morbid obesity E66.01 [facility] [address] [facility] [id number] [address] [place] [phone] Nov, [facility] [address] [facility] [id number] [address] [place] [phone] Nov, DANIELA (generalized anxiety dis order) F41.1 ; Mixed obsessional thoughts and acts F42.2 ; Severe episode of recurrent major depressive disorder, without psychotic features F33.2 and Dependent personality disorder F60.7 [facility] [address] [id number] [place] [id number] October, Morbid obesity E66.01 [facility] [address] [id number] [place] [id number] October, Benign essential hypertension I10 and Mo rbid obesity E66.01 [facility] [address] [id number] [place], [place] [id number] October, [facility] [address] [facility] [id number] [address] [place] [phone] October, Severe episode of recurrent major depressive disorder, without psychotic features F33.2 [facility] [address] [id number] SPRINGS, [place] [id number] October, Morbid obesity E66.01 [facility] [address] [id number] [place] [id number] October, [facility] [address] [facility] [id number] [address] [place] [phone] October, Severe episode of recurrent major depressive disorder, without psychotic features F33.2 ; DANIELA (generalized anxiety disorder) F41.1 ; Mixed obsessional thoughts and acts F42.2 and Dependent personality disorder F60.[address] [id number] SPRINGS[place] [id number] October, Morbid obesity E66.01 [facility] [address] [facility] [id number] [address] [place] [address] [id number] Sep, Dental examination Z01.20 [facility] [address] [place] [address] AVE [id number] SPRINGS, [place] [id number] Sep, [facility] [address] [place] [id number] [address] [place] [address] Sep, Sore in mouth K13.79 and Mor bid obesity E66.01 [facility] [address] [place] [id number] [address] [place] [phone] Sep, Dental examination Z01.20 [facility] [address] [facility] [id number] [address] [place] [phone] Sep, Anxiety disorder, unspecifie d F41.9 [facility] [address] [id number] SPRINGS, [place] [id number] Sep, Mouth ulcer K12.[address] [place] [id number] [place] [address] [id number] Sep, Morbid obesity E66.01 [facility] [address] [place] [address] AVE [id number] SPRINGS, [place] [id number] Sep, Allergic rhinitis, unspecified seasonali ty, unspecified trigger J30.9 and Shortness of breath R06.02 [facility] [address] [place] [address] AV [id number] [place]INGS[place] [id number] Sep, 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 [facility] [address] AV [id number] [place] [id number] Aug, Mouth abscess K12.2 ; Mouth ulcer K12.1 ; Bloating R14.0 and Morbid obesity E66.01 [facility] [address] [id number] SPRINGS, [place] [id number] Aug, [facility] [address] [id number] [place] [id number] Aug, [facility] [address] [id number] [place]INGS[place] [id number] Jul, Major depressive disorder, recurrent, mo derate F33.1 ; Abscess of arm, left L02.414 ; BMI 45.0-49.9, adult Z68.42 and Morbid obesity E66.01 [facility] [address] AV [id number] [place]INGS, [place] [id number] Jul, [facility] [address] [id number] SPRINGS, [place] [id number] Jul, [facility] [address] [id number] SPRINGS, [place] [id number] Jun, Pain in right knee M25.561 and Other chr onic pain G89.[address] [id number] SPRINGS, [place] [id number] Jun, Benign essential hypertension I10 ; BMI [...] R45.4 [facility] [address] [facility] [id number] [address] [place] [address] Jun, [facility] [place]CO[place]EJ[place] [address] [facility] [address] [id number] SPRINGS[place] [id number] Jun, Irritable mood R45.4 [facility] [address] [facility] [id number] [address] [place] [address] May, [facility] [address] [facility] [id number] [address] [place] [phone] May, [facility] [address] [facility] [id number] [address] [place] [address] May, Recurrent major depressive d isorder, in partial remission F33.41 ; Mixed obsessional thoughts and acts F42.2 ; Dependent personality disorder F60.7 and BMI 45.0-49.9, adult Z68.42 [facility] [address] [facility] [id number] [address] [place] [phone] 27 Apr, 2018 [facility] [address] [facility] [id number] [address] [place] [phone] Apr, [facility] [address] [facility] [id number] [address] [place] [phone] Apr, [facility] [address] [facility] [id number] [address] [place] [phone] Apr, [facility] [address] [facility] [id number] [address] [place] [address] Mar, Mixed obsessional thoughts a nd acts F42.2 ; Recurrent major depressive disorder, in partial remission F33.41 ; DANIELA (generalized anxiety disorder) F41.1 and BMI 45.0-49.9, adult Z68.42 [facility] [address] [facility] [address] [id number] SPRINGS, [place] [id number] Mar, [facility] [address] [id number] [place]INGS[place] [id number] Mar, BMI 45.0-49.9, adult Z68.42 ; Instabilit y of right knee joint M25.361 and Rash R21 [facility] [address] [facility] [id number] [address] [place] [address] Jan, Recurrent major depressive d isorder, in partial remission F33.41 ; Mixed obsessional thoughts and acts F42.2 and BMI 45.0-49.9, adult Z68.42 [facility] [address] [facility] [address] [id number] SPRINGS, [place] [id number] Jan, [facility] [address] [id number] SPRINGS, [place] [id number] Jan, Benign essential hypertension I10 ; BMI 45.0-49.9, adult Z68.42 ; Metabolic syndrome E88.81 and Allergic rhinitis, unspecified seasonality, unspecified trigger J30.9 [facility] [address] [facility] [id number] [address] [place] [address] Dec, DANIELA (generalized anxiety dis order) F41.1 and Depressive disorder, not elsewhere classified F32.9 [facility] [address] [id number] SPRINGS, [place] [id number] Dec, Recurrent major depressive disorder, in partial remission F33.41 [facility] [address] [id number] SPRINGS, [place] [id number] Dec, [facility] [address] [id number] [place], [place] [id number] Nov, [facility] [address] [id number] [place] [id number] Nov, Recurrent major depressive disorder, in partial remission F33.41 [facility] [address] [facility] [id number] [address] [place] [phone] Nov, Recurrent major depressive d isorder, in partial remission F33.41 ; Mixed obsessional thoughts and acts F42.2 ; DANIELA (generalized anxiety disorder) F41.1 and BMI 45.0-49.9, adult Z68.42 [facility] [address] [id number] [place]INGS, [place] [id number] Nov, [facility] [address] [id number] [place], [place] [id number] Nov, Other conjunctivitis of both eyes H10.89 and Sciatica, right side M54.31 [facility] [address] [id number] [place] [id number] Nov, [facility] [address] [id number] [place], [place] [id number] Nov, [facility] [address] [id number] [place], [place] [id number] October, [facility] [address] [id number] [place], [place] [id number] October, [facility] [address] [facility] [id number] 100[place] [address] October, BMI 45.0-49.9, adult Z68.42 ; Mixed obsessional thoughts and acts F42.2 ; Recurrent major depressive disorder, in partial remission F33.41 and DANIELA (generalized anxiety disorder) F41.1 [facility] [address] [id number] [place]INGS[place] [id number] October, Benign essential hypertension I10 ; Morb id obesity E66.01 and BMI 45.0-49.9, adult Z68.42 [facility] [address] [id number] [place] [id number] Sep, [facility] [address] [id number] [place] [id number] Sep, [facility] [address] [id number] [place]INGS, [place] [id number] Sep, [facility] [address] [id number] SPRINGS, [place] [id number] Sep, Hospital discharge follow-up Z09 ; Aller gic rhinitis, unspecified seasonality, unspecified trigger J30.9 and Shortness of breath R06.02 [place] [address] [facility] [address] [id number] [place] [address] [id number] Sep, Recurrent major depressive disorder, in partial remission F33.[address] [id number] [place] [address] [id number] Aug, Irritable mood R45.4 [place] [address] [facility] [id number] [address] [place] [address] Aug, [address] [id number] [place] [address] [id number] Jul, Benign essential hypertension I10 ; Robert a R60.9 and Impacted cerumen of left ear H61.22 [place] [address] [place] [id number] [address] [place] [address] Jul, Major depression F32.9 ; Rec urrent major depressive disorder, in partial remission F33.41 and Anxiety F41.9 [place] [address] [facility] [id number] [address] [place] [address] Jun, Major depression F32.9 ; Rec urrent major depressive disorder, in partial remission F33.41 and Anxiety F41.[address] [id number] SPRINGS[place] [id number] Jun, Major depression F32.9 ; Morbid obesity E66.01 ; Irritable mood R45.4 ; Hand weakness R29.898 and Vitamin D deficiency E55.9 [facility] [address] [facility] [address] [id number] [place], [place] [id number] Jun, [address] [id number] [place] [address] [id number] May, Major depression F32.9 [place] [address] [facility] [id number] [address] [place] [address] May, Major depression F32.[address] [facility] [address] [id number] [place] [id number] May, BMI 50.0-59.9, adult Z68.43 ; Major depr ession F32.9 ; Anxiety F41.9 ; Hypertrophic toenail L60.2 and Pain of left great toe M79.675 [facility] [address] [id number] [place], [place] [id number] May, Recurrent major depressive disorder, in partial remission F33.41 [facility] [address] [facility] [id number] [address] [place] [address] Apr, [facility] [address] [id number] [place] [id number] Apr, [facility] [address] [facility] [id number] [address] [place] [phone] Apr, Major depression F32.9 [facility] [id number] [place] [address] [id number] Apr, Severe episode of recurrent major depres sive disorder, without psychotic features F33.2 ; Anxiety F41.9 and Insomnia G47.00 [facility] [address] [id number] SPRINGS[place] [id number] Apr, [facility] [address] [facility] [id number] [address] [place] [address] Apr, [facility] [address] [id number] [place] [id number] Apr, [facility] [address] [id number] [place], [place] [id number] Mar, [facility] [address] [id number] [place] [id number] Mar, Allergic conjunctivitis of both eyes H10 .13 [facility] [address] [facility] [id number] [address] [place] [address] Mar, Major depression F32.9 [facility] [address] [id number] SPRINGS, [place] [id number] Mar, Metabolic syndrome E88.81 ; History of g astric bypass Z98.890 ; Benign essential hypertension I10 ; Allergic conjunctivitis of both eyes H10.13 and Morbid obesity E66.01 [facility] [address] [facility] [id number] [address] [place] [address] Mar, Major depression F32.[address] [id number] [place] [address] [id number] Feb, [facility] [address] [place] [id number] [address] [place] [address] Feb, Major depression F32.[address] [id number] [place] [address] [id number] Feb, Subacute maxillary sinusitis J01.00 and Bronchitis J40 [place] [address] [place] [id number] [address] [place] [address] Feb, Major depressive disorder, r ecurrent, moderate F33.[address] [id number] [place] [address] [id number] Jan, [address] [id number] [place] [address] [id number] Jan, Acute non-recurrent maxillary sinusitis J01.00 and Skin tag L91.[address] [id number] [place] [address] [id number] Jan, Cough R05 and Sinus congestion R09.[address] [id number] SPR[place] [id number] Jan, [address] [id number] [place] [address] [id number] Jan, Benign essential hypertension I10 ; Hist ory of gastric bypass Z98.890 and Nausea and vomiting in adult R11.2 [place] [address] [facility] [id number] [address] [place] [address] Jan, Major depressive disorder, r ecurrent, moderate F33.1 [place] [address] [place] [id number] [address] [place] [address] Dec, Insomnia G47.00 ; Recurrent major depressive disorder, in partial remission F33.41 and Morbid obesity E66.01 [facility] [address] [facility] [address] [id number] SPRINGS, [place] [id number] Dec, [facility] [address] [facility] [address] [id number] [place] [id number] Dec, Chronic bacterial conjunctivitis of left eye H10.[address]00565100BO[place] [id number] Nov, [address] [id number] [place], [place] [id number] Nov, Dental examination Z01.20 [address]00565100BO[place] [id number] Nov, Benign essential hypertension I10 ; Hist ory of gastric bypass Z98.890 and Nausea and vomiting in adult R11.2 [place] [address] [place] [phone] Nov, Major depressive disorder, r ecurrent, moderate F33.1 ; Generalized anxiety disorder F41.1 and Insomnia due to other mental disorder F51.05 [place] [address] [place] [address] Nov, Recurrent major depressive d isorder, in partial remission F33.41 ; Insomnia G47.00 and Morbid obesity E66.01 [facility] [address] [id number] Kiesha ESCOBEDO S [id number] October, Abscess of left arm L02.414 [facility] [address] [place] [id number] [address] [place] [address] October, Morbid obesity E66.01 ; Lida r depression F32.9 and Recurrent major depressive disorder, in partial remission F33.41 [facility] [address] [id number] SPRINGS[place] [id number] Sep, Benign essential hypertension I10 ; Morb id obesity E66.01 ; S/P gastric bypass Z98.84 ; Abscess L02.91 and Chronic bacterial conjunctivitis of left eye H10.402 [facility] [address] [id number] SPRINGS, [place] [id number] Sep, Dental examination Z01.20 [place] [address] [place] [id number] [address] [place] [address] Sep, Morbid obesity E66.01 ; Lida r depression F32.9 and Recurrent major depressive disorder, in partial remission F33.41 [place] [address] [place] [id number] Jul, [place] [address] [address] Jul, Major depressive disorder, r ecurrent, moderate F33.1 [place] [address] [place] [id number] [address] [place] [address] Jul, Major depressive disorder, r ecurrent, moderate F33.1 and Generalized anxiety disorder F41.[address] [place] [address] [id number] [place] [id number] Jul, Cough R05 [place] [address] [place] [id number] [address] [place] [address] Jul, Morbid obesity E66.01 ; Lida r depression F32.9 and Recurrent major depressive disorder, in partial remission F33.41 [facility] [address] [id number] [place] [id number] Jul, [facility] [address] [id number] [place], [place] [id number] Jul, [facility] [address] [id number] [place], [place] [id number] Jul, Gastroenteritis K52.9 and Cough R05 [address] [place] [address] [id number] [place]INGS, [place] [id number] Jun, Acute bacterial conjunctivitis of left e ye H10.32 [place] [address] [facility] [id number] [address] [place] [address] Jun, [place] [address] [facility] [id number] [place] [phone] Jun, Recurrent major depressive d isorder, in partial remission F33.41 [place] [address] [place] [id number] [address] [place] [address] May, Major depression F32.9 and M orbid obesity E66.01 [place] [address] [place] [id number] [address] [place] [address] May, [address] [id number] [place] [address] [id number] May, Thrush B37.0 [place] [address] [phone] Apr, Major depressive disorder, r ecurrent, moderate F33.1 [place] [address] [place] [id number] [address] [place] [address] Apr, Insomnia G47.00 ; Major depr ession F32.9 and Recurrent major depressive disorder, in partial remission F33.41 [place] [address] [place] [address] Apr, [place] [address] [address] Apr, Major depression F32.9 and R ecurrent major depressive disorder, in partial remission F33.41 [facility] [address] [facility] [address] [id number] SPR[place], [place] [id number] Mar, Benign essential hypertension I10 ; Morb id obesity E66.01 ; Impacted cerumen of both ears H61.23 ; Laceration of finger of right hand, initial encounter S61.219A and Encounter for immunization Z23 [place] [address] [id number] [place] [address] Mar, [facility] [address] [facility] [id number] [place] [address] Mar, [facility] [address] [facility] [id number] [place] [address] Mar, [facility] [address] [id number] [place] [id number] Feb, Nausea R11.0 ; Blood in the stool K92.1 and Benign essential hypertension I10 [facility] [address] [facility] [id number] [address] [place] [phone] Feb, Major depression F32.9 and R ecurrent major depressive disorder, in partial remission F33.41 [facility] [address] [id number] SPR[place] [id number] Feb, [facility] [address] [id number] [place], [place] [id number] Feb, Recurrent major depressive disorder, in partial remission F33.41 [facility] [address] [id number] [place] [id number] Jan, [facility] [address] [id number] [place] [id number] Jan, Benign essential hypertension I10 ; Robert a R60.9 and Hyperlipidemia, unspecified hyperlipidemia type E78.5 [facility] [address] [id number] [place], [place] [id number] Jan, Recurrent major depressive disorder, in partial remission F33.41 [facility] [place] [address] [id number] Kiesha ESCOBEDO S [id number] Jan, [facility] [address] [id number] [place] [id number] Jan, [facility] [address] [id number] [place], [place] [id number] Jan, [facility] [address] [facility] [id number] [address] [place] [phone] Jan, [facility] [address] [facility] [id number] [address] [place] [phone] Dec, [facility] [address] [facility] [id number] [address] [place] [phone] Nov, [facility] [address] [facility] [id number] [address] [place] [address] Nov, Major depression F32.9 [facility] [address] [facility] [id number] [address] [place] [address] Nov, [facility] [address] [place] [id number] [address] [place] [address] Nov, [facility] [address] [facility] [id number] [address] [place] [phone] Nov, Major depressive disorder, r ecurrent episode, mild F33.0 and Anxiety F41.[id number] [place] [id number] Nov, [address] [id number] [place] [id number] October, Left elbow pain M25.522 and Other season al allergic rhinitis J30.[address] [id number] [place] [address] [id number] October, [facility] [address] [facility] [id number] [address] [place] [phone] October, Major depressive disorder, r ecurrent, moderate F33.1 [facility] [address] [facility] [id number] [address] [place] [id number] October, Major depression F32.9 [facility] [address] [facility] [id number] [address] [place] [phone] Sep, [place] or callus L84 and Onych omycosis B35.1 [facility] [address] [facility] [id number] [address] [place] [phone] Sep, Major depressive disorder, r ecurrent, moderate F33.1 [facility] [address] [facility] [id number] [address] [place] [phone] Sep, Major depression F32.9 [facility] [address] [facility] [id number] [address] [place] [phone] Sep, Moderate episode of recurren t major depressive disorder F33.1 [facility] [id number] [place] [id number] Sep, Muscle strain T14.8 [facility] [address] [facility] [id number] [address] [place] [phone] Aug, Major depression F32.9 [facility] [address] [facility] [id number] [address] [place] [address] Aug, Major depression F32.9 [facility] [address] [facility] [id number] [address] [place] [address] Jul, Morbid obesity E66.01 and Ma cora depression F32.9 [facility] [address] [facility] [id number] [address] [place] [address] Jul, Depression, major, recurrent , moderate F33.1 [facility] [id number] [place] [address] [id number] Jul, [facility] [address] [facility] [id number] [address] [place] [address] Jul, [facility] [address] [facility] [id number] [address] [place] [address] Jul, Major depression F32.9 and M orbid obesity E66.01 [facility] [id number] [place] [address] [id number] Jul, Type II diabetes mellitus E11.9 ; Callus of foot L84 ; Benign essential hypertension I10 and Renal insufficiency N28.9 [facility] [address] [facility] [id number] [address] [place] [id number] 09 Jul, 2015 Depression, major, recurrent , moderate F33.1 [facility] [address] [facility] [id number] [address] [place], [place] [address] 05 Jul, 2015 Major depression F32.9 [facility] [address] [facility] [id number] [address] [place] [address] Jul, [facility] [address] [facility] [id number] [address] [place], [place] [address] Jun, Major depression F32.9 [facility] [address] [facility] [id number] [address] [place] [address] Jun, Major depressive disorder, r ecurrent, moderate F33.1 [place] [address] [facility] [id number] [address] [place] [address] Jun, [place] [address] [facility] [id number] [address] [place] [phone] Jun, Major depressive disorder, r ecurrent, moderate F33.1 and Major depression F32.9 [facility] [id number] [place] [address] [id number] Jun, Type II diabetes mellitus E11.9 [place] [address] [facility] [id number] [address] [place] [address] Jun, Depression, major, recurrent , moderate F33.1 [place] [address] [facility] [id number] [address] [place] [address] May, Major depressive disorder, r ecurrent, moderate F33.1 [place] [address] [facility] [id number] [address] [place] [address] May, [facility] [id number] [place] [address] [id number] May, Edema R60.9 [facility] [address] [facility] [id number] [address] [place] [address] May, Insomnia G47.00 and Major de pression F32.9 [place] [id number] [facility] [id number] [id number] 15 May, 2015 Morbid obesity E66.01 ; Edema R60.9 ; Sh ortness of breath R06.02 ; Benign essential hypertension I10 and Renal insufficiency N28.[address] [id number] [id number] May, Hyperlipemia 272.4 and Renal insufficien cy N28.9 [place] [address] [facility] [id number] [address] [place] [address] Apr, Major depression F32.9 [place] [address] [facility] [id number] [address] [place] [address] Apr, [place] [address] [facility] [id number] [address] [place] [address] Apr, Major depressive disorder, r ecurrent, moderate F33.[address] [id number] [place] [id number] Apr, Type II diabetes mellitus E11.9 ; Benign essential hypertension I10 ; Edema R60.9 and Renal insufficiency N28.9 [place] [address] [facility] [id number] [address] [place] [address] Mar, Major depressive disorder, r ecurrent, moderate F33.1 [place] [address] [facility] [id number] [address] [place] [address] Mar, [place] [address] [facility] [id number] [address] [place] [address] Mar, Major depression F32.[address] [id number] [place] [address] [id number] Mar, Morbid obesity E66.01 ; Benign essential hypertension I10 and Type II diabetes mellitus E11.9 [place] [address] [facility] [id number] [address] [place] [address] Feb, Major depressive disorder, r ecurrent, moderate F33.1 [facility] [address] [facility] [id number] [address] [place] [address] Feb, Major depressive disorder, r ecurrent episode, in partial or unspecified remission 296.35 ; Anxiety state, unspecified 300.00 and Morbid obesity 278.01 [place] [address] [facility] [id number] [address] [place] [address] Feb, [place] [address] [id number] [id number] Feb, Vomiting 787.03 and Viral syndrome 079.9 9 [place] [address] [facility] [id number] [address] [place] [address] Feb, Major depression, recurrent 296.30 ; Generalized anxiety disorder 300.02 and No condition on [place] II V71.[address] [id number] [place] [id number] Feb, Skin tag 701.9 [place] [address] [place] [id number] [address] [place] [address] Feb, [place] [address] [place] [id number] [address] [place] [address] Jan, Depression, major, recurrent , moderate 296.[address] [id number] [place] [id number] Jan, Nausea and vomiting 787.01 ; Rib pain on right side 786.50 and Fall on or from sidewalk curb E880.1 [facility] [address] [facility] [id number] [address] [place] [address] Jan, [place] [address] [facility] [id number] [address] [place] [address] Jan, Major depressive disorder, r ecurrent episode, in partial or unspecified remission 296.35 and Anxiety state, unspecified 300.[address] [place] [address] [id number] [place] [id number] Jan, [facility] [id number] [address] [place] [address] Jan, Depression, major, recurrent , moderate 296.32 [place] [id number] [address] [place] [address] Jan, Major depression, recurrent 296.30 ; No condition on Gro[place] II V71.09 and No condition on axis III V71.[address] [id number] [place] [id number] Jan, Drug-induced nausea and vomiting 787.01 [place] [id number] [address] [place] [address] Jan, Depression, major, recurrent , moderate 296.32 [place] [id number] [address] [place] [address] Dec, Depression, major, recurrent , moderate 296.[address] [id number] [place] [id number] Dec, Morbid obesity 278.01 ; Metabolic syndro me 277.7 ; Hyperlipemia 272.4 ; Benign essential hypertension 401.1 ; Dietary counseling V65.3 ; Exercise counseling V65.41 and Inflamed skin tag 701.9 [place] [id number] [address] [place] [address] Dec, Depression, major, recurrent , moderate 296.32 [place] [id number] [address] [place] [address] Dec, [place] [id number] [address] [place] [address] Dec, Major depression, recurrent 296.30 ; Anxiety, generalized 300.02 and No condition on [place] II V71.09 [place] [id number] [address] [place] [address] Dec, Depression, major, recurrent , moderate 296.32 [place] [id number] [address] [place] [address] Dec, Major depressive disorder, r ecurrent episode, moderate 296.32 [place] [address] [place] [id number] [address] [place] [address] Dec, Depression, major, recurrent , moderate 296.32 [place] [address] [place] [id number] [address] [place] [address] Dec, Depression, major, recurrent , moderate 296.32 [place] [address] [address] Dec, Depression, major, recurrent , moderate 296.32 [place] [address] [address] Dec, Depression, major, recurrent , moderate 296.32 [place] [address] [address] Nov, Depression, major, recurrent , moderate 296.32 [place] [address] [address] Nov, Major depression 296.20 ; So cial phobia 300.23 and No condition on [place] II V71.09 [place] [address] [address] Nov, Depression, major, recurrent , moderate 296.32 [place] [address] [address] Nov, Major depressive disorder, r ecurrent episode, moderate 296.32 and Generalized anxiety disorder 300.02 [place] [address] [place] [id number] [address] [place] [address] Nov, Depression, major, recurrent , moderate 296.32 [place] [address] [address] Nov, Depression, major, recurrent , moderate 296.32 [place] [address] [address] October, Generalized anxiety disorder 300.02 ; No condition on [place] II V71.09 and Major depressive disorder, recurrent 296.30 [facility] [address] [id number] [address] [place] [address], [place] [address] 14 Sep, 2014 [facility] [address] [id number] [address] [place] [address] 13 Sep, 2014 [facility] [address] [id number] [address] [place] [address] 24 Aug, 2014 [facility] [address] [id number] [address] [place] [address] 24 Aug, 2014 [facility] [address] [id number] [address] [place] [id number] 23 Aug, 2014 [facility] [address] [id number] [address] [place] [address] 23 Aug, 2014 [facility] [address] [id number] [address] [place] [address] 20 Aug, 2014 [facility] [address] [id number] [address] [place] [id number] 20 Aug, 2014 [facility] [address] [id number] [address] [place] [id number] 20 Aug, 2014 [facility] [address] [id number] [address] [place] [phone] 20 Aug, 2014 [facility] [address] [id number] [address] [place] [address] 13 Aug, 2014 [facility] [address] [id number] [address] [place] [id number] 13 Aug, 2014 [facility] [address] [id number] [address] [place] [address] 13 Aug, 2014 [facility] [address] [id number] [address] [place] [id number] 13 Aug, 2014 [facility] [address] [id number] [address] [place] [address] Aug, [facility] [place] [address] [id number] [address] [place] [address], [place] [address] Aug, [facility] [place] [address] [id number] [address] [place] [address], [place] [address] Aug, [facility] [place] [facility] [address] [id number] [address] [place] [address], [place] [address] Aug, [facility] [place] [address] [id number] [address] [place] [address], [place] [address] Aug, [facility] [place] [facility] [address] [id number] [address] [place] [address], [place] [address] Aug, [facility] [place] [address] [id number] [address] [place] [address], [place] [address] Jul, [facility] [place] [address] [id number] [address] [place] [address], [place] [address] Jul, [facility] [place] [facility] [address] [id number] [address] [place] [address], [place] [address] Jul, [facility] [place] [facility] [address] [id number] [address] [place] [address], [place] [address] Jul, [facility] [place] [facility] [address] [id number] [address] [place] [address], [place] [address] Jul, [facility] [place] [facility] [address] [id number] [address] [place] [address], [place] [address] Jul, [facility] [place] [address] [id number] [address] [place] [address], [place] [address] Jun, [facility] [place] [facility] [address] [id number] [address] [place] [address], [place] [address] Jun, [facility] [place] [address] [id number] [address] [place] [address], [place] [address] Jun, [facility] [address] [id number] [address] [place] [address], [place] [address] Jun, [facility] [address] [id number] [address] [place] [address], [place] [address] Jun, [facility] [address] [id number] [address] [place] [address], [place] [address] Jun, [facility] [address] [id number] [address] [place] [address], [place] [address] Jun, [facility] [address] [id number] [address] [place] [address], [place] [address] Jun, [facility] [address] [id number] [address] [place] [address], [place] [address] Jun, [facility] [address] [id number] [address] [place] [address], [place] [address] Jun, [facility] [address] [id number] [address] [place] [address], [place] [address] Jun, [facility] [address] [id number] [address] [place] [address], [place] [address] Jun, [facility] [address] [facility] [id number] [place] [id number] Jun, [facility] [address] [id number] [address] [place] [address] Jun, [facility] [address] [id number] [address] [place] [address], [place] [address] Jun, [facility] [address] [id number] [address] [place] [address] Jun, [facility] [address] [id number] [address] [place] [address] May, [facility] [address] [id number] [address] [place] [address], [place] [address] May, [facility] [address] [id number] [address] [place] [address], [place] [address] May, [facility] [address] [id number] [address] [place] [address], [place] [address] May, [facility] [address] [id number] [address] [place] [address], [place] [address] Apr, [facility] [address] [id number] [address] [place] [address], [place] [address] Apr, [facility] [address] [id number] [address] [place] [address], [place] [address] Apr, [facility] [address] [id number] [address] [place] [address], [place] [address] Apr, [facility] [address] [id number] [address] [place] [address], [place] [address] Apr, [facility] [address] [id number] [address] [place] [address], [place] [address] Apr, [facility] [address] [id number] [address] [place] [address], [place] [address] Apr, [facility] [address] [id number] [address] [place] [address], [place] [address] Apr, [facility] [address] [id number] [address] [place] [address], [place] [address] Apr, [facility] [address] [id number] [address] [place] [address], [place] [address] Apr, [facility] [address] [id number] [address] [place] [address], [place] [address] Apr, [facility] [address] [id number] [address] [place] [address], [place] [address] Apr, [facility] [address] [id number] [address] [place] [address], [place] [address] Apr, [facility] [address] [id number] [address] [place] [address], [place] [address] Apr, [facility] [address] [id number] [address] [place] [address], [place] [address] Apr, [facility] [address] [id number] [address] [place] [address], [place] [address] Apr, [facility] [address] [id number] [address] [place] [address], [place] [address] Apr, [facility] [address] [id number] [address] [place] [address], [place] [address] Apr, [facility] [address] [id number] [address] [place] [address], [place] [address] Apr, [facility] [address] [id number] [address] [place] [address], [place] [address] Apr, [facility] [address] [id number] [address] [place] [address], [place] [address] Mar, [facility] [address] [id number] [address] [place] [address], [place] [address] Mar, [facility] [address] [id number] [address] [place] [address], [place] [address] Mar, [facility] [address] [id number] [address] [place] [address], [place] [address] Mar, [facility] [address] [id number] [address] [place] [address], [place] [address] Mar, [facility] [address] [id number] [address] [place] [address], [place] [address] Mar, [facility] [address] [id number] [address] [place] [address], [place] [address] Mar, [facility] [address] [id number] [address] [place] [address] Mar, [facility] [address] [id number] [address] [place] [address], [place] [address] Mar, [facility] [address] [id number] [address] [place] [address], [place] [address] Mar, [facility] [address] [id number] [address] [place] [address], [place] [address] Feb, [facility] [address] [id number] [address] [place] [address] [place] [address] Feb, [facility] [address] [id number] [facility] [place] [address] Feb, [facility] [address] [id number] [address] [place] [address], [place] [address] Feb, [facility] [address] [id number] [address] [place] [address], [place] [address] Jan, [facility] [address] [id number] [address] [place] [address], [place] [address] Jan, [facility] [address] [id number] [address] [place] [address], [place] [address] Jan, [facility] [address] [id number] [address] [place] [address], [place] [address] Jan, [facility] [address] [id number] [address] [place] [address], [place] [address] Jan, [facility] [address] [id number] [address] [place] [address], [place] [address] Jan, [facility] [address] [id number] [address] [place] [address], [place] [address] Dec, [facility] [address] [id number] [address] [place] [address], [place] [address] Dec, [facility] [address] [id number] [address] [place] [address], [place] [id number] Nov, [facility] [address] [id number] [address] [place] [address], [place] [address] Nov, [facility] [address] [id number] [address] [place] [address], [place] [id number] Nov, [facility] [address] [id number] [address] [place] [address], [place] [id number] Nov, [facility] [address] [id number] [address] [place] [address], [place] [address] Nov, [facility] [address] [id number] [address] [place] [address], [place] [id number] Nov, [facility] [address] [id number] [address] [place] [address], [place] [address] Sep, [facility] [address] [id number] [address] [place] [address], [place] [address] Sep, [facility] [address] [id number] [address] [place] [address], [place] [address] Sep, [facility] [address] [id number] [address] [place] [address], [place] [address] Sep, [facility] [address] [id number] [address] [place] [address], [place] [address] Aug, [facility] [address] [id number] [address] [place] [address], [place] [address] Aug, [facility] [address] [id number] [address] [place] [address], [place] [address] Jul, [facility] [address] [id number] [address] [place] [address], [place] [id number] Jul, [facility] [address] [id number] [address] [place] [address], [place] [address] Jun, [facility] [address] [id number] [address] [place] [address], [place] [address] Jun, [facility] [address] [id number] [address] [place] [address], [place] [address] Jun, [facility] [address] [id number] [address] [place] [address], [place] [address] Jun, [facility] [address] [id number] [address] [place] [address], [place] [address] May, [facility] [address] [id number] [address] [place] [address], [place] [address] May, [facility] [address] [id number] [place] [address] May, [facility] [address] [id number] [address] [place] [address], [place] [address] May, [facility] [address] [id number] [address] [place] [id number] May, [facility] [address] [id number] [address] [place] [id number] May, [facility] [address] [id number] [address] [place] [id number] Apr, [facility] [address] [id number] [address] [place] [address], [place] [address] Apr, [facility] [address] [id number] [address] [place] [id number] Apr, [facility] [address] [id number] [address] [place] [id number] Apr, [facility] [address] [id number] [address] [place] [id number] Mar, [facility] [address] [id number] [address] [place] [id number] Mar, [facility] [address] [id number] [address] [place] [id number] Mar, [facility] [address] [id number] [address] [place] [id number] Mar, [facility] [address] [id number] [address] [place] [id number] Feb, [facility] [address] [id number] [id number] Jan, [facility] [address] [id number] [address] [place] [id number] Jan, [facility] [address] [id number] [address] [place] [id number] Dec, [facility] [address] [id number] [address] [place] [id number] 15 Dec, 2012 [facility] [address] [facility] [id number] [address] [place] [id number] 10 Dec, 2012 [facility] [address] [address] [id number] COLUMBUSKiesha S [id number] Dec, 2012 [facility] [address] [facility] [id number] [address] [place] [id number] 17 Nov, 2012 [facility] [address] [facility] [id number] [address] [place] [phone] 14 Nov, 2012 [facility] [address] [facility] [id number] [address] [place] [phone] Nov, [facility] [address] [facility] [id number] [address] [place] [id number] Nov, [facility] [address] [facility] [id number] [address] [place] [id number] Nov, [facility] [address] [facility] [id number] [address] [place] [phone] October, [facility] [address] [facility] [id number] [address] [place] [id number] October, [facility] [address] [facility] [id number] [address] [place] [phone] Aug, [facility] [address] [facility] [id number] [address] [place] [id number] Nov, IMMUNIZATIONS No Known Immunizations SOCIAL HISTORY [...] 04/2019 Hospitalization History gastric sleeve Hospitalization History [facility] ER Trouble with left shoulder blade 08/2017
--- OUTSIDE RECORDS SUMMARY | 2019-12-27 11:15 | XMS REPORT ---
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 Name Role Phone CHRIS DIAZ Unavailable PROBLEMS Type Condition ICD9-CM Code HTX16-HY Code Onset Dates Condition S tatus SNOMED Code Problem Edema R60.9 Active 651880355 Problem Morbid obesity E66.01 Active 50264 6002 Problem Metabolic syndrome E88.81 Active 2 16996514 Problem Renal insufficiency N28.9 Active 589668474 Problem Vitamin D deficiency E55.9 Active 70050414 Problem Severe episode of recurrent major depressive disorder, without psychotic features F33.2 Active 70515381 Problem DANIELA (generalized anxiety disorder) F41.1 Active 02643512 Problem Mixed obsessional thoughts and acts F42.2 Active 50954879 Problem Chronic fatigue R53.82 Active 8422 9001 Problem Other chronic pain G89.29 Active 8 4148029 Problem Borderline personality disorder F60.3 Active 97883234 Problem Attachment disorder F94.1 Active Problem Sciatica, right side M54.31 Active 449084111748363 Problem Insomnia G47.00 Active 629325571 Problem Anxiety F41.9 Active 49160841 Problem BMI 45.0-49.9, adult Z68.42 Active 390902928 Problem Hyperlipemia E78.5 Active 6104816 4 Problem Benign essential hypertension I10 Active 9991281 Problem Callous ulcer, limited to breakdown of skin L98.49 1 Active Problem Hammer toe of right foot M20.41 Activ e 953107426 Problem Hammer toe of second toe of right foot M20.41 Active 486242600 Problem Falling episodes R29.6 Active [id number] ALLERGIES No Information ENCOUNTERS Encounter Location Date Diagnosis [facility] [address] [facility] [id number] [place] [id number] Dec, [facility] [address] [facility] [id number] [address] [place] [phone] Nov, [facility] [address] [id number] [id number] Nov, [facility] [address] [facility] [id number] [address] [place] [phone] Nov, [facility] [address] [id number][place] [id number] Nov, [facility] [address] [facility] [id number] [address] [place] [phone] Nov, Benign essential hypertensio n I10 [facility] [address] [id number][place] [id number] Nov, [facility] [address] [facility] [id number] [address] [place] [phone] Nov, [facility] [address] [facility] [id number] [address] [place] [phone] Nov, [facility] [address] [id number][place] [id number] October, Benign essential hypertension I10 [facility] [address] [facility] [id number] [address] [place] [phone] October, DANIELA (generalized anxiety dis order) F41.1 ; Severe episode of recurrent major depressive disorder, without psychotic features F33.2 ; Mixed obsessional thoughts and acts F42.2 and Borderline personality disorder F60.3 [facility] JENNY [address] 340B [id number] [place] [address] October, [facility] [address] [id number][place] [id number] October, [facility] [address] [id number] [place] [address] October, [facility] [address] [id number][place] [id number] Sep, [facility] [address] [facility] [id number] [address] [place] [phone] Sep, [facility] [id number] [place] [address] [id number] Sep, [facility] [address] [facility] [id number] [address] [place] [phone] Sep, [facility] [address] [facility] [id number] [address] [place] [phone] Sep, [facility] [address] [facility] [id number] [address] [place] [phone] Sep, [facility] [address] [facility] [id number] [address] [place] [phone] Sep, [facility] [address] [facility] [id number] [address] [place] [phone] Sep, DANIELA (generalized anxiety dis order) F41.1 ; Severe episode of recurrent major depressive disorder, without psychotic features F33.2 ; Mixed obsessional thoughts and acts F42.2 and Borderline personality disorder F60.3 [facility] [address] [place] [address] [facility] [id number] [place] [address] Sep, Severe episode of recurrent major depres sive disorder, without psychotic features F33.2 [facility] [id number] [place] [address] [id number] Sep, [facility] [address] [id number], [place] [id number] Sep, [facility] [id number] [place] [address] [id number] Sep, Benign essential hypertension I10 [facility] [address] [facility] [id number] [address] [place] [phone] Sep, [facility] [address] [facility] [id number] [address] [place] [phone] Sep, [facility] [address] [facility] [id number] [address] [place] [phone] Sep, [facility] [address] [facility] [id number] [address] [place] [phone] Sep, DANIELA (generalized anxiety dis order) F41.1 ; Severe episode of recurrent major depressive disorder, without psychotic features F33.2 ; Mixed obsessional thoughts and acts F42.2 and Borderline personality disorder F60.[address] [place] [id number] [place] [address] [id number] 31 Aug, 2019 [facility] [address] [facility] [id number] [address] [place] [phone] Aug, [id number] [place] [address] [id number] Aug, [facility] [address] [facility] [id number] [address] [place] [phone] Aug, [id number] [place] [address] [id number] 17 Aug, 2019 Dizzy R42 ; Weight gain R63.5 ; Benign e ssential hypertension I10 ; Falling episodes R29.6 and History of gastric bypass Z98.84 [place] [address] [place] [id number] [address] [place] [phone] 14 Aug, 2019 [place] [address] [facility] [id number] [address] [place] [phone] Aug, [facility] [address] [facility] [id number] [address] [place] [phone] 11 Aug, 2019 DANIELA (generalized anxiety dis order) F41.1 ; Severe episode of recurrent major depressive disorder, without psychotic features F33.2 ; Mixed obsessional thoughts and acts F42.2 and Borderline personality disorder F60.3 [facility] [id number] [place] [address] [id number] 09 Aug, 2019 [facility] [id number] [place] [address] [id number] Aug, [facility] [address] [facility] [id number] [address] [place] [phone] Aug, [facility] [address] [facility] [address] [id number][place] [id number] Aug, [address] [id number][place] [id number] Aug, [facility] [address] [facility] [id number] [address] [place] [phone] Aug, [id number] [place] [address] [id number] Aug, Severe episode of recurrent major depres sive disorder, without psychotic features F33.2 ; Borderline personality disorder F60.3 ; Anxiety F41.9 and Attachment disorder F94.1 [facility] [address] [facility] [id number] [address] [place] [phone] Jul, [facility] [address] [place] [id number] [address] [place] [phone] Jul, DANIELA (generalized anxiety dis order) F41.1 ; Severe episode of recurrent major depressive disorder, without psychotic features F33.2 ; Mixed obsessional thoughts and acts F42.2 and Borderline personality disorder F60.[address] [id number][place] [id number] Jul, [facility] [address] [facility] [id number] [address] [place] [phone] Jul, [facility] [address] [facility] [id number] [address] [place] [phone] 14 Jul, 2019 [facility] [address] [facility] [id number] [address] [place] [phone] Jul, [facility] [address] [facility] [id number] [address] [place] [phone] 07 Jul, 2019 [facility] [address] [facility] [id number] [address] [place] [phone] Jun, DANIELA (generalized anxiety dis order) F41.1 ; Severe episode of recurrent major depressive disorder, without psychotic features F33.2 ; Mixed obsessional thoughts and acts F42.2 and Borderline personality disorder F60.[address] [id number][place] [id number] Jun, [id number] [place] [address] [id number] Jun, [place] [address] [facility] [id number] [address] [place] [phone] Jun, [place] [address] [facility] [id number] [address] [place] [phone] Jun, DANIELA (generalized anxiety dis order) F41.1 ; Severe episode of recurrent major depressive disorder, without psychotic features F33.2 ; Mixed obsessional thoughts and acts F42.2 and Borderline personality disorder F60.[address] [id number] [place] [address] [id number] 16 Jun, [address] [id number] [place] [address] [id number] 14 Jun, [id number] [place] [address] [id number] Jun, [address] [id number] [place] [address] [id number] Jun, Benign essential hypertension I10 ; Morb id obesity E66.01 ; Severe episode of recurrent major depressive disorder, without psychotic features F33.2 ; Excess skin L98.7 and Hyperlipemia E78.5 [place] [address] [facility] [id number] [address] [place] [phone] Jun, [place] [address] [facility] [id number] [address] [place] [phone] May, [facility] [address] [facility] [id number] [address] [place] [phone] May, Severe episode of recurrent major depressive disorder, without psychotic features F33.2 ; Mixed obsessional thoughts and acts F42.2 ; DANIELA (generalized anxiety disorder) F41.1 and Borderline personality disorder F60.3 [facility] [address] [facility] [id number] [address] [place] [phone] May, [facility] [address] [facility] [id number] [address] [place] [phone] May, DANIELA (generalized anxiety dis order) F41.1 ; Severe episode of recurrent major depressive disorder, without psychotic features F33.2 ; Mixed obsessional thoughts and acts F42.2 and Borderline personality disorder F60.3 [facility] [address] [facility] [id number] [address] [place] [phone] May, [facility] [address] [facility] [id number] [address] [place] [phone] May, [facility] [address] [facility] [id number] [address] [place] [phone] May, Severe episode of recurrent major depressive disorder, without psychotic features F33.2 ; Mixed obsessional thoughts and acts F42.2 ; Borderline personality disorder F60.3 and DANIELA (generalized anxiety disorder) F41.1 [facility] [address] [id number] [address] [place] [address] [phone] May, Caries K02.9 [facility] [address] [id number][place] [id number] May, Benign essential hypertension I10 [facility] [place] [address] [id number], [place] [id number] Apr, [facility] [address] [id number], [place] [id number] Apr, Benign essential hypertension I10 [facility] [address] [facility] [id number] [address] [place] [phone] Apr, Borderline personality disor romero F60.3 ; DANIELA (generalized anxiety disorder) F41.1 ; Mixed obsessional thoughts and acts F42.2 and Severe episode of recurrent major depressive disorder, without psychotic features F33.2 [facility] [address] [id number], [place] [id number] Apr, [address] [id number][place] [id number] Apr, Benign essential hypertension I10 [facility] [id number] [place] [phone] Apr, Severe episode of recurrent major depressive disorder, without psychotic features F33.2 ; DANIELA (generalized anxiety disorder) F41.1 ; Borderline personality disorder F60.3 and Mixed obsessional thoughts and acts F42.2 [facility] [address] [id number] [address] [place] [address] [id number] Apr, Dental examination Z01.20 [facility] [id number] [place] [address] [id number] Apr, Caries K02.9 and Dental exam ination Z01.20 [facility] [address] [place] [id number] [address] [place] [phone] Apr, DANIELA (generalized anxiety dis order) F41.1 ; Severe episode of recurrent major depressive disorder, without psychotic features F33.2 ; Mixed obsessional thoughts and acts F42.2 and Borderline personality disorder F60.3 [facility] [address] [place] [id number] [address] [place] [phone] Mar, Severe episode of recurrent major depressive disorder, without psychotic features F33.2 ; Mixed obsessional thoughts and acts F42.2 ; Borderline personality disorder F60.3 and DANIELA (generalized anxiety disorder) F41.1 [facility] [address] [place] [id number] [address] [place] [phone] Mar, Severe episode of recurrent major depressive disorder, without psychotic features F33.2 ; Mixed obsessional thoughts and acts F42.2 ; DANIELA (generalized anxiety disorder) F41.1 and Borderline personality disorder F60.3 [facility] [address] [id number] [address] [place] [address] [id number] Mar, Dental examination Z01.20 an d Caries K02.[address] [place] [address] [id number][place] [id number] Mar, Benign essential hypertension I10 and Fa lling episodes R29.6 [facility] [address] [facility] [id number] [address] [place] [phone] Mar, [facility] [address] [facility] [id number] [address] [place] [phone] Mar, Severe episode of recurrent major depressive disorder, without psychotic features F33.2 ; Mixed obsessional thoughts and acts F42.2 ; Borderline personality disorder F60.3 and DANIELA (generalized anxiety disorder) F41.1 [facility] [address] [facility] [id number] [address] [place] [phone] Mar, [place] [address] [facility] [id number] [address] [place] [phone] Mar, [address] [id number], [place] [id number] Mar, [facility] [address] [facility] [id number] [address] [place] [phone] Mar, Severe episode of recurrent major depressive disorder, without psychotic features F33.2 ; Mixed obsessional thoughts and acts F42.2 ; Borderline personality disorder F60.3 and DANIELA (generalized anxiety disorder) F41.1 [place] [address] [facility] [id number] [address] [place] [phone] Mar, [facility] [address] [facility] [id number] [address] [place] [address] [id number] Feb, Dental examination Z01.20 an d Periodontitis K05.30 [facility] [address] [facility] [id number] [address] [place] [phone] Feb, DANIELA (generalized anxiety dis order) F41.1 ; Severe episode of recurrent major depressive disorder, without psychotic features F33.2 ; Mixed obsessional thoughts and acts F42.2 and Borderline personality disorder F60.[address] [place] [address] [id number][place] [id number] Feb, Acute pain of right knee M25.561 ; Fall, initial encounter W19.XXXA ; Benign essential hypertension I10 and Edema R60.9 [facility] [address] [facility] [id number] [address] [place] [phone] Feb, [facility] [address] [facility] [id number] [address] [place] [phone] Feb, DANIELA (generalized anxiety dis order) F41.1 ; Severe episode of recurrent major depressive disorder, without psychotic features F33.2 ; Mixed obsessional thoughts and acts F42.2 and Borderline personality disorder F60.3 [facility] [address] [facility] [id number] [address] [place] [phone] Feb, [facility] [address] [facility] [id number] [address] [place] [phone] Jan, [facility] [address] [facility] [id number] [address] [place] [phone] Jan, [facility] [address] [facility] [id number] [address] [place] [phone] Jan, [facility] [id number] [place] [address] [id number] Jan, Callus of heel L84 ; Fissure in skin R23 .4 and Hammer toe of second toe of right foot M20.41 [facility] [address] [id number], [place] [id number] Jan, [facility] [address] [facility] [id number] [address] [place] [phone] Jan, [facility] [address] [facility] [id number] [address] [place] [phone] Jan, [facility] [address] [facility] [id number] [address] [place] [phone] Jan, Severe episode of recurrent major depressive disorder, without psychotic features F33.2 ; DANIELA (generalized anxiety disorder) F41.1 ; Mixed obsessional thoughts and acts F42.2 and Borderline personality disorder F60.3 [place] [id number] [facility] [id number] [address] [place] [phone] Jan, [facility] [address] [facility] [id number][place] [id number] Jan, Benign essential hypertension I10 [place] [address] [facility] [id number] [place] [address] [id number] Dec, Callous ulcer, limited to breakdown of s kin L98.491 and Morbid obesity E66.01 [facility] [address] [facility] [id number] [address] [place] [phone] Dec, [facility] [address] [facility] [id number] [address] [place] [phone] Dec, [facility] [address] [facility] [id number] [address] [place] [phone] Dec, [facility] [address] [place] [id number] [address] [place] [phone] Dec, [facility] [address] [facility] [id number] [address] [place] [phone] Dec, Severe episode of recurrent major depressive disorder, without psychotic features F33.2 [facility] [address] [facility] [id number] [address] [place] [phone] Dec, DANIELA (generalized anxiety dis order) F41.1 ; Severe episode of recurrent major depressive disorder, without psychotic features F33.2 ; Mixed obsessional thoughts and acts F42.2 and Dependent personality disorder F60.7 [facility] [address] [facility] [address] [id number][place] [id number] Dec, Morbid obesity E66.01 [facility] [address] [facility] [id number] [address] [place] [phone] Dec, [facility] [address] [facility] [id number] [address] [place] [phone] Dec, [address] [id number] [address] Nov, [facility] [place] [id number] [facility] [address] [id number], [place] [id number] Nov, [facility] [address] [facility] [id number] [address] [place] [id number] Nov, [facility] [address] [facility] [id number] [address] [place] [id number] Nov, [facility] [address] [facility] [id number] [address] [place] [id number] Nov, DANIELA (generalized anxiety dis order) F41.1 ; Severe episode of recurrent major depressive disorder, without psychotic features F33.2 ; Mixed obsessional thoughts and acts F42.2 and Dependent personality disorder F60.7 [facility] [address]COBROWNLEE[address] [id number], [place] [id number] Nov, Morbid obesity E66.01 [facility] [address] [facility] [id number] [address] [place] [phone] Nov, [facility] [address] [facility] [id number] [address] [place] [phone] Nov, DANIELA (generalized anxiety dis order) F41.1 ; Mixed obsessional thoughts and acts F42.2 ; Severe episode of recurrent major depressive disorder, without psychotic features F33.2 and Dependent personality disorder F60.[address] [id number], [place] [id number] October, Morbid obesity E66.[address] [id number], [place] [id number] October, Benign essential hypertension I10 and Mo rbid obesity E66.[address] [id number], [place] [id number] October, [facility] [address] [facility] [id number] [address] [place] [phone] October, Severe episode of recurrent major depressive disorder, without psychotic features F33.[address] [id number], [place] [id number] October, Morbid obesity E66.01 [facility] [address] [facility] [address] [id number], [place] [id number] October, [facility] [address] [facility] [id number] [address] [place] [phone] October, Severe episode of recurrent major depressive disorder, without psychotic features F33.2 ; DANIELA (generalized anxiety disorder) F41.1 ; Mixed obsessional thoughts and acts F42.2 and Dependent personality disorder F60.[address] [id number], [place] [id number] October, Morbid obesity E66.01 [facility] [address] [id number] [address] [place] [address] [id number] Sep, Dental examination Z01.[address] [id number] [place] [id number] Sep, [facility] [address] [id number] [address] [place] [phone] Sep, Sore in mouth K13.79 and Mor bid obesity E66.01 [facility] [address] [id number] [address] [place] [phone] Sep, Dental examination Z01.20 [facility] [address] [id number] [address] [place] [phone] Sep, Anxiety disorder, unspecifie d F41.9 [facility] [address] [facility] [address] [id number], [place] [id number] Sep, Mouth ulcer K12.[address] [id number], [place] [id number] Sep, Morbid obesity E66.[address] [id number], [place] [id number] Sep, Allergic rhinitis, unspecified seasonali ty, unspecified trigger J30.9 and Shortness of breath R06.[address] [id number], [place] [id number] Sep, 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 BR[address] [place] [address] AVE [id number], [place] [id number] Aug, [facility] [address] [id number], [place] [id number] Aug, [facility] [address] [id number], [place] [id number] Jul, Major depressive disorder, recurrent, mo derate F33.1 ; Abscess of arm, left L02.414 ; BMI 45.0-49.9, adult Z68.42 and Morbid obesity E66.01 [facility] [address] [id number], [place] [id number] Jul, [facility] [address] [id number], [place] [id number] Jul, [facility] [address] [id number], [place] [id number] Jun, Pain in right knee M25.561 and Other chr onic pain G89.29 [facility] [address] [id number], [place] [id number] Jun, Benign essential hypertension I10 ; BMI 45.0-49.9, adult Z68.42 ; Morbid obesity E66.01 ; Vitamin D deficiency E55.9 ; Insomnia G47.00 ; Dependent personality disorder F60.7 ; Edema R60.9 ; Recurrent major depressive disorder, in partial remission F33.41 ; Chronic fatigue R53.82 ; Acute pain of right knee M25.561 ; Metabolic syndrome E88.81 and Irritable mood R45.4 [facility] [address] [facility] [id number] 100[place] [address] Jun, [address] [id number], [place] [id number] Jun, Irritable mood R45.4 [facility] [address] [facility] [id number] [address] [place] [phone] May, [facility] [address] [place] [address] [id number] [address] [place] [phone] May, [facility] [address] [facility] [id number] [place] [phone] May, Recurrent major depressive d isorder, in partial remission F33.41 ; Mixed obsessional thoughts and acts F42.2 ; 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 and BMI 45.0-49.9, adult Z68.42 [place] [address] [place] [id number] [address] [place] [phone] Apr, [facility] [id number] [place] [phone] Apr, [facility] [address] [id number] [address] [place] [phone] Apr, [facility] [id number] [place] [phone] Apr, [facility] [address] [id number] [address] [place] [phone] Mar, Mixed obsessional thoughts a nd acts F42.2 ; Recurrent major depressive disorder, in partial remission F33.41 ; DANIELA (generalized anxiety disorder) F41.1 and BMI 45.0-49.9, adult Z68.42 [facility] [address] [id number], [place] [id number] Mar, [address] [id number], [place] [id number] Mar, BMI 45.0-49.9, adult Z68.42 ; Instabilit y of right knee joint M25.361 and Rash R21 [place] [address] [facility] [id number] [address] [place] [phone] Jan, Recurrent major depressive d isorder, in partial remission F33.41 ; Mixed obsessional thoughts and acts F42.2 and BMI 45.0-49.9, adult Z68.42 [facility] [address] [id number], [place] [id number] Jan, [facility] [address] [id number], [place] [id number] Jan, Benign essential hypertension I10 ; BMI 45.0-49.9, adult Z68.42 ; Metabolic syndrome E88.81 and Allergic rhinitis, unspecified seasonality, unspecified trigger J30.[address] [id number] [address] [place] [phone] Dec, DANIELA (generalized anxiety dis order) F41.1 and Depressive disorder, not elsewhere classified F32.9 [facility] [address] [id number], [place] [id number] Dec, Recurrent major depressive disorder, in partial remission F33.41 [facility] [address] [id number], [place] [id number] Dec, [facility] OROSCO[facility] [address] [id number], [place] [id number] Nov, [facility] [address] [id number], [place] [id number] Nov, Recurrent major depressive disorder, in partial remission F33.41 [place] [address] [facility] [id number] [address] [place] [phone] Nov, Recurrent major depressive d isorder, in partial remission F33.41 ; Mixed obsessional thoughts and acts F42.2 ; DANIELA (generalized anxiety disorder) F41.1 and BMI 45.0-49.9, adult Z68.42 [facility] [address] [id number], [place] [id number] Nov, [facility] [address] [id number], [place] [id number] Nov, Other conjunctivitis of both eyes H10.89 and Sciatica, right side M54.31 [facility] [address] [id number], [place] [id number] Nov, [facility] [address] [id number], [place] [id number] Nov, [facility] [address] [id number], [place] [id number] October, [facility] [address] [id number], [place] [id number] October, [facility] [address] [facility] [id number] 100[place] [address] October, BMI 45.0-49.9, adult Z68.42 ; Mixed obsessional thoughts and acts F42.2 ; Recurrent major depressive disorder, in partial remission F33.41 and DANIELA (generalized anxiety disorder) F41.1 [facility] [address] [id number], [place] [id number] October, Benign essential hypertension I10 ; Morb id obesity E66.01 and BMI 45.0-49.9, adult Z68.42 [facility] Jama [facility] [address] [id number], [place] [id number] Sep, [facility] Bender[address] [place] [address] AVE [id number], [place] [id number] Sep, [facility] [address] [id number], [place] [id number] Sep, [facility] [address] [id number], [place] [id number] Sep, Hospital discharge follow-up Z09 ; Aller gic rhinitis, unspecified seasonality, unspecified trigger J30.9 and Shortness of breath R06.02 [facility] [address] [id number], [place] [id number] Sep, Recurrent major depressive disorder, in partial remission F33.[address] [id number], [place] [id number] Aug, Irritable mood R45.4 [place] [address] [facility] [id number] [address] [place] [phone] 09 Aug, [address] [id number] [place] [address] [id number] Jul, Benign essential hypertension I10 ; Robert a R60.9 and Impacted cerumen of left ear H61.22 [place] [address] [facility] [id number] [address] [place] [phone] 14 Jul, 2017 Major depression F32.9 ; Rec urrent major depressive disorder, in partial remission F33.41 and Anxiety F41.9 [place] [address] [facility] [id number] [address] [place] [address] Jun, Major depression F32.9 ; Rec urrent major depressive disorder, in partial remission F33.41 and Anxiety F41.[address] [id number], [place] [id number] Jun, Major depression F32.9 ; Morbid obesity E66.01 ; Irritable mood R45.4 ; Hand weakness R29.898 and Vitamin D deficiency E55.[address] [id number], [place] [id number] Jun, [id number] [place] [address] [id number] May, Major depression F32.9 [place] [address] [facility] [id number] [address] [place] [phone] May, Major depression F32.[id number] [place] [address] [id number] May, BMI 50.0-59.9, adult Z68.43 ; Major depr ession F32.9 ; Anxiety F41.9 ; Hypertrophic toenail L60.2 and Pain of left great toe M79.[address] [facility] [address] [id number], [place] [id number] May, Recurrent major depressive disorder, in partial remission F33.41 [facility] [address] [facility] [id number] [address] [place] [phone] Apr, [facility] [id number] [place] [address] [id number] Apr, [facility] [address] [facility] [id number] [address] [place] [phone] Apr, Major depression F32.9 [facility] [id number] [place] [address] [id number] Apr, Severe episode of recurrent major depres sive disorder, without psychotic features F33.2 ; Anxiety F41.9 and Insomnia G47.00 [facility] [id number] [place] [address] [id number] Apr, [facility] [address] [place] [address] [id number] [address] [place] [phone] Apr, [facility] [id number] [place] [address] [id number] Apr, [facility] [address] [id number], [place] [id number] Mar, [facility] [id number] [place] [address] [id number] Mar, Allergic conjunctivitis of both eyes H10 .13 [facility] [address] [facility] [id number] [address] [place] [phone] Mar, Major depression F32.9 [facility] [id number] [place] [address] [id number] Mar, Metabolic syndrome E88.81 ; History of g astric bypass Z98.890 ; Benign essential hypertension I10 ; Allergic conjunctivitis of both eyes H10.13 and Morbid obesity E66.01 [facility] [address] [facility] [id number] [address] [place] [phone] Mar, Major depression F32.9 [facility] [address] [facility] [address] [id number], [place] [id number] Feb, [facility] [address] [facility] [id number] [address] [place] [phone] Feb, Major depression F32.[address] [id number], [place] [id number] Feb, Subacute maxillary sinusitis J01.00 and Bronchitis J40 [facility] [address] [facility] [id number] [address] [place] [phone] Feb, Major depressive disorder, r ecurrent, moderate F33.1 [facility] [address] [facility] [address] [id number], [place] [id number] Jan, [address] [id number] [place] [address] [id number] Jan, Acute non-recurrent maxillary sinusitis J01.00 and Skin tag L91.[address] [id number] [place] [address] [id number] Jan, Cough R05 and Sinus congestion R09.[address] [id number], [place] [id number] Jan, [address] [id number] [place] [address] [id number] Jan, Benign essential hypertension I10 ; Hist ory of gastric bypass Z98.890 and Nausea and vomiting in adult R11.2 [facility] [address] [facility] [id number] [address] [place] [phone] Jan, Major depressive disorder, r ecurrent, moderate F33.1 [facility] [address] [facility] [id number] [address] [place] [phone] Dec, Insomnia G47.00 ; Recurrent major depressive disorder, in partial remission F33.41 and Morbid obesity E66.[address] [id number], [place] [id number] Dec, [facility] [address]ia[address] [facility] [address] [id number], [place] [id number] Dec, Chronic bacterial conjunctivitis of left eye H10.402 [facility] Bender[address] [facility] [address] [id number], [place] [id number] Nov, [facility] [address] [place] [address] AVE [id number], [place] [id number] Nov, Dental examination Z01.[address] [id number], [place] [id number] Nov, Benign essential hypertension I10 ; Hist ory of gastric bypass Z98.890 and Nausea and vomiting in adult R11.2 [place] [address] [place] [id number] [address] [place] [phone] Nov, Major depressive disorder, r ecurrent, moderate F33.1 ; Generalized anxiety disorder F41.1 and Insomnia due to other mental disorder F51.05 [place] [address] [place] [id number] [address] [place] [phone] Nov, Recurrent major depressive d isorder, in partial remission F33.41 ; Insomnia G47.00 and Morbid obesity E66.01 [facility] [address] [id number] [place] [id number] October, Abscess of left arm L02.414 [place] [address] [place] [address] October, Morbid obesity E66.01 ; Lida r depression F32.9 and Recurrent major depressive disorder, in partial remission F33.41 [facility] [address] [facility] [id number], [place] [id number] Sep, Benign essential hypertension I10 ; Morb id obesity E66.01 ; S/P gastric bypass Z98.84 ; Abscess L02.91 and Chronic bacterial conjunctivitis of left eye H10.402 [facility] [address] [facility] [address] [id number], [place] [id number] Sep, Dental examination Z01.20 [place] [address] [facility] [id number] [address] [place] [address] Sep, Morbid obesity E66.01 ; Lida r depression F32.9 and Recurrent major depressive disorder, in partial remission F33.41 [place] [address] [facility] [id number] [address] [place] [id number] Jul, [place] [address] [facility] [id number] [address] [place] [phone] Jul, Major depressive disorder, r ecurrent, moderate F33.1 [place] [address] [place] [id number] [place] [phone] Jul, Major depressive disorder, r ecurrent, moderate F33.1 and Generalized anxiety disorder F41.[id number] [place] [address] [id number] Jul, Cough R05 [place] [address] [place] [id number] [address] [place] [phone] Jul, Morbid obesity E66.01 ; Lida r depression F32.9 and Recurrent major depressive disorder, in partial remission F33.[address] [id number], [place] [id number] Jul, [address] [id number], [place] [id number] Jul, [id number] [place] [address] [id number] Jul, Gastroenteritis K52.9 and Cough R05 [id number] [place] [address] [id number] Jun, Acute bacterial conjunctivitis of left e ye H10.32 [place] [address] [facility] [id number] [address] [place] [phone] Jun, [place] [address] [facility] [id number] [address] [place] [phone] Jun, Recurrent major depressive d isorder, in partial remission F33.41 [facility] [address] [facility] [id number] [address] [place] [phone] May, Major depression F32.9 and M orbid obesity E66.01 [facility] [address] [facility] [id number] [address] [place] [phone] May, [facility] [address] [place] [address] A[id number] [place] [address] [id number] May, Thrush B37.0 [place] [address] [facility] [id number] [address] [place] [phone] Apr, Major depressive disorder, r ecurrent, moderate F33.1 [place] [address] [place] [id number] [place] [phone] Apr, Insomnia G47.00 ; Major depr ession F32.9 and Recurrent major depressive disorder, in partial remission F33.41 [facility] [address] [facility] [id number] [address] [place] [phone] Apr, [place] [address] [facility] [id number] [address] [place] [phone] Apr, Major depression F32.9 and R ecurrent major depressive disorder, in partial remission F33.[address] [id number] [place] [address] [id number] Mar, Benign essential hypertension I10 ; Morb id obesity E66.01 ; Impacted cerumen of both ears H61.23 ; Laceration of finger of right hand, initial encounter S61.219A and Encounter for immunization Z23 [facility] [address] [facility] [id number] [address] [place] [phone] Mar, [facility] [address] [facility] [id number] [address] [place] [phone] Mar, [place] [address] [facility] [id number] [address] [place] [phone] Mar, [facility] [address] [id number], [place] [id number] Feb, Nausea R11.0 ; Blood in the stool K92.1 and Benign essential hypertension I10 [facility] [address] [facility] [id number] [address] [place] [phone] Feb, Major depression F32.9 and R ecurrent major depressive disorder, in partial remission F33.41 [facility] [address] [id number], [place] [id number] Feb, [facility] [address] [id number], [place] [id number] Feb, Recurrent major depressive disorder, in partial remission F33.41 [facility] [address] [id number], [place] [id number] Jan, [facility] [id number] [place] [address] [id number] Jan, Benign essential hypertension I10 ; Robert a R60.9 and Hyperlipidemia, unspecified hyperlipidemia type E78.5 [facility] [address] [id number], [place] [id number] Jan, Recurrent major depressive disorder, in partial remission F33.41 [facility] [address] [id number] [place] [id number] Jan, [facility] [address] [id number][place] [id number] Jan, [facility] [address] [id number][place] [id number] Jan, [facility] [address] [facility] [id number] [address] [place] [phone] Jan, [facility] [address] [facility] [id number] [address] [place] [id number] Dec, [facility] [address] [facility] [id number] [address] [place] [phone] Nov, [facility] [address] [facility] [id number] [address] [place] [phone] Nov, Major depression F32.9 [facility] [address] [facility] [id number] [address] [place] [phone] Nov, [facility] [address] [facility] [id number] [address] [place] [phone] Nov, [facility] [address] [facility] [id number] [address] [place] [phone] Nov, Major depressive disorder, r ecurrent episode, mild F33.0 and Anxiety F41.[id number] [place] [id number] Nov, [id number] [place] [id number] October, Left elbow pain M25.522 and Other season al allergic rhinitis J30.[address] [id number] [place] [id number] October, [facility] [facility] [address] [id number] [address] [place] [address] October, Major depressive disorder, r ecurrent, moderate F33.1 [facility] [address] [facility] [id number] [address] [place] [address] October, Major depression F32.9 [facility] [address] [facility] [id number] [address] [place] [address] Sep, [place] or callus L84 and Onych omycosis B35.1 [facility] [address] [facility] [id number] [address] [place] [address] Sep, Major depressive disorder, r ecurrent, moderate F33.1 [facility] [address] [facility] [id number] [address] [place] [address] Sep, Major depression F32.9 [facility] [address] [facility] [id number] [address] [place] [address] Sep, Moderate episode of recurren t major depressive disorder F33.1 [facility] [address] [facility] [address] [id number] [id number] Sep, Muscle strain T14.8 [facility] [address] [facility] [id number] [address] [place] [address] Aug, Major depression F32.9 [facility] [address] [facility] [id number] [address] [place] [address] Aug, Major depression F32.9 [facility] [address] [facility] [id number] [address] [place] [address] Jul, Morbid obesity E66.01 and Ma cora depression F32.9 [facility] [address] [facility] [id number] [address] [place] [address] Jul, Depression, major, recurrent , moderate F33.1 [facility] [address] [facility] [id number] [place] [id number] Jul, [facility] [address] [facility] [id number] [address] [place] [address] Jul, [facility] [address] [facility] [id number] [address] [place] [address] Jul, Major depression F32.9 and M orbid obesity E66.01 [facility] [address] [place] [address] AVE [id number][place] [id number] Jul, Type II diabetes mellitus E11.9 ; Callus of foot L84 ; Benign essential hypertension I10 and Renal insufficiency N28.9 [facility] [address] [facility] [id number] [address] [place] [id number] 09 Jul, 2015 Depression, major, recurrent , moderate F33.1 [facility] [address] [facility] [id number] [address] [place] [address] Jul, Major depression F32.9 [facility] [address] [id number] [address] [place] [phone] 04 Jul, 2015 [facility] [address] [facility] [id number] [address] [address] Jun, Major depression F32.9 [facility] [address] [facility] [id number] [address] [place] [address] Jun, Major depressive disorder, r ecurrent, moderate F33.1 [place] [address] [address] Jun, [place] [address] [address] [id number] [place] [address] Jun, Major depressive disorder, r ecurrent, moderate F33.1 and Major depression F32.[id number] [place] [address] [id number] Jun, Type II diabetes mellitus E11.9 [place] [address] [place] [id number] [address] [place] [address] Jun, Depression, major, recurrent , moderate F33.1 [place] [address] [place] [id number] [address] [place] [address] May, Major depressive disorder, r ecurrent, moderate F33.1 [place] [address] [place] [id number] [address] [place] [phone] May, [facility] [address] [id number][place] [id number] May, Edema R60.9 [place] [address] [place] [id number] [address] [place] [address] May, Insomnia G47.00 and Major de pression F32.9 [facility] [address] [id number][place] [id number] May, Morbid obesity E66.01 ; Edema R60.9 ; Sh ortness of breath R06.02 ; Benign essential hypertension I10 and Renal insufficiency N28.9 [facility] [address] [id number][place] [id number] May, Hyperlipemia 272.4 and Renal insufficien cy N28.9 [place] [address] [facility] [id number] [address] [place] [address] Apr, Major depression F32.9 [place] [address] [facility] [id number] [address] [place] [address] Apr, [place] [address] [facility] [id number] [address] [place] [address] Apr, Major depressive disorder, r ecurrent, moderate F33.1 [facility] [address] [place] [address] [id number] [place] [address] [id number] Apr, Type II diabetes mellitus E11.9 ; Benign essential hypertension I10 ; Edema R60.9 and Renal insufficiency N28.9 [place] [address] [place] [id number] [address] [place] [address] Mar, Major depressive disorder, r ecurrent, moderate F33.1 [place] [address] [facility] [id number] [address] [place] [address] Mar, [place] [id number] [address] [place] [address] Mar, Major depression F32.[address] [id number] [place] [address] [id number] Mar, Morbid obesity E66.01 ; Benign essential hypertension I10 and Type II diabetes mellitus E11.9 [place] [address] [facility] [id number] [address] [place] [address] Feb, Major depressive disorder, r ecurrent, moderate F33.1 [place] [address] [facility] [id number] [address] [place] [address] Feb, Major depressive disorder, r ecurrent episode, in partial or unspecified remission 296.35 ; Anxiety state, unspecified 300.00 and Morbid obesity 278.01 [place] [address] [place] [id number] [address] [place] [id number] Feb, [facility] [address] [place] [address] AVE [id number], [place] [id number] Feb, Vomiting 787.03 and Viral syndrome 079.9 9 [facility] [address] [id number] [address] [place] [address] Feb, Major depression, recurrent 296.30 ; Generalized anxiety disorder 300.02 and No condition on Gwynn II V71.[id number] [place] [address] [id number] Feb, Skin tag 701.9 [place] [address] [place] [id number] [address] [place] [address] Feb, [place] [address] [place] [id number] [address] [place] [address] Jan, Depression, major, recurrent , moderate 296.[address] [id number][place] [id number] Jan, Nausea and vomiting 787.01 ; Rib pain on right side 786.50 and Fall on or from sidewalk curb E880.1 [facility] [address] [id number] [address] [place] [address] Jan, [facility] [address] [id number] [address] [place] [address] Jan, Major depressive disorder, r ecurrent episode, in partial or unspecified remission 296.35 and Anxiety state, unspecified 300.00 [facility] [address] [place] [place], [place] [address] [id number][place] [id number] Jan, [facility] [address] [facility] [id number] [address] [place] [address] Jan, Depression, major, recurrent , moderate 296.32 [facility] [address] [id number] [address] [place] [address] Jan, Major depression, recurrent 296.30 ; No condition on Gwynn II V71.09 and No condition on axis III V71.09 [facility] [address] [facility] [address] [id number][place] [id number] Jan, Drug-induced nausea and vomiting 787.01 [place] [id number] [address] [place] [address] Jan, Depression, major, recurrent , moderate 296.32 [place] [id number] [address] [place] [address] Dec, Depression, major, recurrent , moderate 296.32 [facility] [address] [facility] [id number][place] [id number] Dec, Morbid obesity 278.01 ; Metabolic syndro me 277.7 ; Hyperlipemia 272.4 ; Benign essential hypertension 401.1 ; Dietary counseling V65.3 ; Exercise counseling V65.41 and Inflamed skin tag 701.9 [place] [id number] [address] [place] [address] Dec, Depression, major, recurrent , moderate 296.32 [place] [id number] [address] [place] [address] Dec, [address] [address] Dec, Major depression, recurrent 296.30 ; Anxiety, generalized 300.02 and No condition on Gwynn II V71.09 [place] [id number] [address] [place] [address] Dec, Depression, major, recurrent , moderate 296.32 [place] [id number] [address] [place] [address] Dec, Major depressive disorder, r ecurrent episode, moderate 296.32 [place] [id number] [address] [place] [address] Dec, Depression, major, recurrent , moderate 296.32 [place] [id number] [address] [place] [address] Dec, Depression, major, recurrent , moderate 296.32 [place] [address] [address] Dec, Depression, major, recurrent , moderate 296.32 [place] [address] [address] Dec, Depression, major, recurrent , moderate 296.32 [place] [address] [address] Nov, Depression, major, recurrent , moderate 296.32 [place] [address] [address] Nov, Major depression 296.20 ; So cial phobia 300.23 and No condition on Gwynn II V71.09 [place] [address] [address] Nov, Depression, major, recurrent , moderate 296.32 [place] [address] [address] Nov, Major depressive disorder, r ecurrent episode, moderate 296.32 and Generalized anxiety disorder 300.02 [place] [address] [place] [id number] [address] [place] [address] Nov, Depression, major, recurrent , moderate 296.32 [place] [address] [address] Nov, Depression, major, recurrent , moderate 296.32 [place] [address] [place] [id number] [address] [place] [address] October, Generalized anxiety disorder 300.02 ; No condition on Gwynn II V71.09 and Major depressive disorder, recurrent 296.30 [place] [address] [place] [id number] [address] [place] [address] 14 Sep, 2014 [place] [address] [address] Sep, [facility] [address] [id number] [facility] [address] 24 Aug, 2014 [facility] [address] [id number] [facility] [address] 24 Aug, 2014 [facility] [address] [id number] [address] [place] [address], [place] [address] 23 Aug, 2014 [facility] [address] [id number] [address] [place] [address], [place] [address] 23 Aug, 2014 [facility] [address] [id number] [address] [place] [address], [place] [address] 20 Aug, 2014 [facility] [address] [id number] [address] [place] [address], [place] [address] 20 Aug, 2014 [facility] [address] [id number] [address] [place] [address], [place] [address] 20 Aug, 2014 [facility] [address] [id number] [address] [place] [address], [place] [address] 20 Aug, 2014 [facility] [address] [id number] [address] [place] [address], [place] [address] 13 Aug, 2014 [facility] [address] [id number] [address] [place] [address], [place] [address] 13 Aug, 2014 [facility] [address] [id number] [address] [place] [address], [place] [address] 13 Aug, 2014 [facility] [address] [id number] [address] [place] [address], [place] [address] 13 Aug, 2014 [facility] [address] [id number] [address] [place] [address], [place] [address] 12 Aug, 2014 [facility] [address] [id number] [address] [place] [address], [place] [address] 12 Aug, 2014 [facility] [address] [id number] [address] [place] [address], [place] [address] 10 Aug, 2014 [facility] [address] [id number] [address] [place] [address], [place] [address] Aug, [facility] [address] [id number] [address] [place] [address], [place] [address] Aug, [facility] [address] [id number] [address] [place] [address], [place] [address] Aug, [facility] [address] [id number] [address] [place] [address], [place] [address] Jul, [facility] [address] [id number] [address] [place] [address], [place] [address] Jul, [facility] [address] [id number] [address] [place] [address], [place] [address] Jul, [facility] [address] [id number] [address] [place] [address], [place] [address] Jul, [facility] [address] [id number] [address] [place] [address], [place] [address] Jul, [facility] [address] [id number] [address] [place] [address], [place] [address] Jul, [facility] [address] [id number] [address] [place] [address], [place] [address] Jun, [facility] [address] [id number] [address] [place] [address], [place] [address] Jun, [facility] [address] [id number] [address] [place] [address], [place] [address] Jun, [facility] [address] [id number] [address] [place] [address], [place] [address] Jun, [facility] [address] [id number] [address] [place] [address], [place] [address] Jun, [facility] [address] [id number] [address] [place] [address], [place] [address] Jun, [facility] [address] [id number] [address] [place] [address], [place] [address] Jun, [facility] [address] [id number] [address] [place] [address], [place] [address] Jun, [facility] [address] [id number] [address] [place] [address], [place] [address] Jun, [facility] [address] [id number] [address] [place] [address], [place] [address] Jun, [facility] [address] [id number] [address] [place] [address], [place] [address] Jun, [facility] [address] [id number] [address] [place] [address], [place] [address] Jun, [facility] [address] [id number] [place] [id number] Jun, [facility] [address] [id number] [address] [place] [address], [place] [address] Jun, [facility] [address] [id number] [address] [place] [address], [place] [address] Jun, [facility] [address] [id number] [address] [place] [address], [place] [address] Jun, [facility] [address] [id number] [address] [place] [address], [place] [address] May, [facility] [address] [id number] [address] [place] [address], [place] [address] May, [facility] [address] [id number] [address] [place] [address] May, [facility] [address] [id number] [address] [place] [address], [place] [address] May, [facility] [address] [id number] [address] [place] [address], [place] [address] Apr, [facility] [address] [id number] [address] [place] [address], [place] [address] Apr, [facility] [address] [id number] [address] [place] [address] Apr, [facility] [address] [id number] [address] [place] [address], [place] [address] Apr, [facility] [address] [id number] [address] [place] [address], [place] [address] Apr, [facility] [address] [id number] [address] [place] [address], [place] [address] Apr, [facility] [address] [id number] [address] [place] [address] Apr, [facility] [address] [id number] [address] [place] [address], [place] [address] Apr, [facility] [address] [id number] [address] [place] [address], [place] [address] Apr, [facility] [address] [id number] [address] [place] [address], [place] [address] Apr, [facility] [address] [id number] [address] [place] [address], [place] [address] Apr, [facility] [address] [id number] [address] [place] [address] Apr, [facility] [address] [id number] [address] [place] [address], [place] [address] Apr, [facility] [address] [id number] [address] [place] [address] Apr, [facility] [address] [id number] [address] [place] [address] Apr, [facility] [address] [id number] [address] [place] [address], [place] [address] Apr, [facility] [address] [id number] [address] [place] [address] Apr, [facility] [address] [id number] [address] [place] [address] Apr, [facility] [address] [id number] [address] [place] [address], [place] [address] Apr, [facility] [address] [id number] [address] [place] [address], [place] [address] Apr, [facility] [address] [id number] [address] [place] [address], [place] [address] Mar, [facility] [address] [id number] [address] [place] [address], [place] [address] Mar, [facility] [address] [id number] [address] [place] [address], [place] [address] Mar, [facility] [address] [id number] [address] [place] [address], [place] [address] Mar, [facility] [address] [id number] [address] [place] [address], [place] [address] Mar, [facility] [address] [id number] [address] [place] [address], [place] [address] Mar, [facility] [address] [id number] [address] [place] [address], [place] [address] Mar, [facility] [address] [id number] [address] [place] [address], [place] [address] Mar, [facility] [address] [id number] [address] [place] [address], [place] [address] Mar, [facility] [address] [id number] [address] [place] [address], [place] [address] Mar, [facility] [address] [id number] [address] [place] [address], [place] [address] Feb, [facility] [address] [id number] [address] [place] [address], [place] [address] Feb, [facility] [address] [id number] [address] [place] [address], [place] [address] Feb, [facility] [address] [id number] [address] [place] [address], [place] [address] Feb, [facility] [address] [id number] [address] [place] [address], [place] [address] Jan, [facility] [address] [id number] [address] [place] [address], [place] [address] Jan, [facility] [address] [id number] [address] [place] [address], [place] [address] Jan, [facility] [address] [id number] [address] [place] [address], [place] [address] Jan, [facility] [address] [id number] [address] [place] [address], [place] [address] Jan, [facility] [address] [id number] [address] [place] [address], [place] [address] Jan, [facility] [address] [id number] [address] [place] [address], [place] [address] Dec, [facility] [address] [id number] [address] [place] [address], [place] [address] Dec, [facility] [address] [id number] [address] [place] [address], [place] [address] Nov, [facility] [address] [id number] [address] [place] [address], [place] [address] Nov, [facility] [address] [id number] [address] [place] [address], [place] [address] Nov, [facility] [address] [id number] [address] [place] [address], [place] [address] Nov, [facility] [address] [id number] [address] [place] [address], [place] [address] Nov, [facility] [address] [id number] [address] [place] [address], [place] [address] Nov, [facility] [address] [id number] [address] [place] [address], [place] [address] Sep, [facility] [address] [id number] [address] [place] [address], [place] [address] Sep, [facility] [address] [id number] [address] [place] [address], [place] [address] Sep, [facility] [address] [id number] [address] [place] [address], [place] [address] Sep, [facility] [address] [id number] [address] [place] [address], [place] [address] Aug, [facility] [address] [id number] [address] [place] [address], [place] [address] Aug, [facility] [address] [id number] [address] [place] [address], [place] [address] Jul, [facility] [address] [id number] [address] [place] [address], [place] [address] Jul, [facility] [address] [id number] [address] [place] [address], [place] [address] Jun, [facility] [address] [id number] [address] [place] [address], [place] [address] Jun, [facility] [address] [id number] [address] [place] [address], [place] [address] Jun, [facility] [address] [id number] [address] [place] [address], [place] [address] Jun, [facility] [address] [id number] [address] [place] [address], [place] [address] May, [facility] [address] [id number] [address] [place] [address], [place] [address] May, [facility] [address] [id number] [address] [place] [address], [place] [address] May, [facility] [address] [id number] [address] [place] [address], [place] [address] May, [facility] [facility] [address] [id number] [address] [place] [address], [place] [address] May, [facility] [address] [id number] [address] [place] [address], [place] [address] May, [facility] [address] [id number] [address] [place] [address], [place] [address] Apr, [facility] [address] [id number] [address] [place] [address], [place] [address] Apr, [facility] [address] [id number] [address] [place] [address], [place] [address] Apr, [facility] [address] [id number] [address] [place] [address], [place] [address] Apr, [facility] [address] [id number] [address] [place] [address], [place] [address] Mar, [facility] [address] [id number] [address] [place] [address], [place] [address] Mar, [facility] [address] [id number] [address] [place] [address], [place] [address] Mar, [facility] [address] [id number] [address] [place] [address], [place] [address] Mar, [facility] [address] [id number] [address] [place] [address], [place] [address] Feb, [facility] [address] [id number] [place] [id number] Jan, [facility] [address] [id number] [address] [place] [address], [place] [address] Jan, [facility] [address] [id number] [address] [place] [address], [place] [address] Dec, [facility] [address] [id number] [address] [place] [address], [place] [address] Dec, [facility] [address] [id number] [address] [place] [address], [place] [address] Dec, [facility] [address] [id number] [place] [id number] Dec, [facility] [address] [id number] [address] [place] [id number] 17 Nov, 2012 [facility] [address] [id number] [address] [place] [id number] 14 Nov, 2012 [facility] [address] [id number] [address] [place] [id number] Nov, [facility] [address] [id number] [address] [place] [phone] Nov, [facility] [address] [id number] [address] [place] [id number] Nov, [facility] [address] [id number] [address] [place] [id number] October, [facility] [address] [facility] [id number] [address] [place] [id number] October, [facility] [address] [id number] [address] [place] [id number] Aug, [facility] [address] [id number] [address] [place] [phone] Nov, IMMUNIZATIONS No Known Immunizations SOCIAL HISTORY Never Assessed REASON FOR VISIT PLAN OF CARE VITAL SIGNS Height 72 in 2013-04-01 Weight 423.06 lbs 2013-04-01 Temperature 97.7 degrees Fahrenheit 2013-04-01 Heart Rate 78 bpm 2013-04-01 Respiratory Rate 16 2013-04-01 Blood pressure systolic 150 mmHg 2013-04-01 Blood pressure diastolic 88 mmHg 2013-04-01 MEDICATIONS Unknown Medications RESULTS No Results PROCEDURES Procedure Date Ordered Result Body Site THER/PROPH/DIAG INJ, SC/IM Apr 01, 2013 INJ KETOROLAC TROMETHAMINE 15 MG Apr 01, 2013 INSTRUCTIONS MEDICATIONS ADMINISTERED No Known Medications [...] 04/2019 Hospitalization History gastric sleeve Hospitalization History [facility] ER Trouble with left shoulder blade 08/2017
--- OUTSIDE RECORDS SUMMARY | 2019-12-27 11:16 | XMS REPORT ---
Author Author Curt DIAZ [facility] Address [address] [place] [address] Care Team Providers Care Bunch Maker Name Role Phone CHRIS DIAZ Unavailable PROBLEMS Type Condition ICD9-CM Code UPB56-IP Code Onset Dates Condition S tatus SNOMED Code Problem Edema R60.9 Active 415433414 Problem Morbid obesity E66.01 Active 34207 6002 Problem Metabolic syndrome E88.81 Active 2 54071913 Problem Renal insufficiency N28.9 Active 514913103 Problem Vitamin D deficiency E55.9 Active 99869249 Problem Severe episode of recurrent major depressive disorder, without psychotic features F33.2 Active 47071728 Problem DANIELA (generalized anxiety disorder) F41.1 Active 32758547 Problem Mixed obsessional thoughts and acts F42.2 Active 44366515 Problem Chronic fatigue R53.82 Active 8422 9001 Problem Other chronic pain G89.29 Active 8 4471185 Problem Borderline personality disorder F60.3 Active 58553424 Problem Attachment disorder F94.1 Active Problem Sciatica, right side M54.31 Active 005361453218885 Problem Insomnia G47.00 Active 473013103 Problem Anxiety F41.9 Active 65249998 Problem BMI 45.0-49.9, adult Z68.42 Active 216076825 Problem Hyperlipemia E78.5 Active 5473043 4 Problem Benign essential hypertension I10 Active 0839850 Problem Callous ulcer, limited to breakdown of skin L98.49 1 Active Problem Hammer toe of right foot M20.41 Activ e 919732027 Problem Hammer toe of second toe of right foot M20.41 Active 346863781 Problem Falling episodes R29.6 Active 161 845106 ALLERGIES No Information ENCOUNTERS Encounter Location Date Diagnosis [facility] [address] [facility] [id number] [place] [id number] Dec, [facility] [address] [facility] [id number] [address] [place] [phone] Nov, [facility] [address] [id number] [id number] Nov, [facility] [address] [facility] [id number] [address] [place] [phone] Nov, [facility] [address] [id number] [id number] Nov, [facility] [address] [facility] [id number] [address] [place] [phone] Nov, Benign essential hypertensio n I10 [facility] [address] [id number][place] [id number] Nov, [facility] [address] [facility] [id number] [address] [place] [phone] Nov, [facility] [address] [facility] [id number] [address] [place] [phone] Nov, [facility] [address] [id number][place] [id number] October, Benign essential hypertension I10 [facility] [address] [facility] [id number] [address] [place] [phone] October, DANIELA (generalized anxiety dis order) F41.1 ; Severe episode of recurrent major depressive disorder, without psychotic features F33.2 ; Mixed obsessional thoughts and acts F42.2 and Borderline personality disorder F60.3 [facility] JENNY [address] 340B [id number] [place] [address] October, [facility] [address] [id number][place] [id number] October, [facility] [address] [id number] [place] [address] October, [facility] [address] [id number], [place] [id number] Sep, [facility] [address] [facility] [id number] [address] [place] [phone] Sep, [facility] [id number] [place] [id number] Sep, [facility] [address] [facility] [id number] [address] [place] [phone] Sep, [facility] [address] [facility] [id number] [address] [place] [phone] Sep, [facility] [address] [facility] [id number] [address] [place] [phone] Sep, [facility] [address] [facility] [id number] [address] [place] [phone] Sep, [facility] [address] [facility] [id number] [address] [place] [phone] Sep, DANIELA (generalized anxiety dis order) F41.1 ; Severe episode of recurrent major depressive disorder, without psychotic features F33.2 ; Mixed obsessional thoughts and acts F42.2 and Borderline personality disorder F60.3 [facility] [address] [place] [address] [facility] [id number] [place] [address] Sep, Severe episode of recurrent major depres sive disorder, without psychotic features F33.[address] [facility] [id number] [place] [id number] Sep, [facility] [address] [id number], [place] [id number] Sep, [facility] [id number] [place] [address] [id number] Sep, Benign essential hypertension I10 [facility] [address] [facility] [id number] [address] [place] [phone] Sep, [facility] [address] [facility] [id number] [address] [place] [phone] Sep, [facility] [address] [facility] [id number] [address] [place] [phone] Sep, [facility] [address] [facility] [id number] [address] [place] [phone] Sep, DANIELA (generalized anxiety dis order) F41.1 ; Severe episode of recurrent major depressive disorder, without psychotic features F33.2 ; Mixed obsessional thoughts and acts F42.2 and Borderline personality disorder F60.[address] [place] [id number] [place] [address] [id number] 31 Aug, 2019 [facility] [address] [facility] [id number] [address] [place] [phone] Aug, [id number] [place] [address] [id number] Aug, [facility] [address] [facility] [id number] [address] [place] [phone] Aug, [id number] [place] [id number] 17 Aug, 2019 Dizzy R42 ; Weight gain R63.5 ; Benign e ssential hypertension I10 ; Falling episodes R29.6 and History of gastric bypass Z98.84 [place] [address] [place] [id number] [address] [place] [phone] 14 Aug, 2019 [place] [address] [facility] [id number] [address] [place] [phone] Aug, [facility] [address] [facility] [id number] [address] [place] [phone] 11 Aug, 2019 DANIELA (generalized anxiety dis order) F41.1 ; Severe episode of recurrent major depressive disorder, without psychotic features F33.2 ; Mixed obsessional thoughts and acts F42.2 and Borderline personality disorder F60.3 [facility] [id number] [place] [address] [id number] 09 Aug, [address] [facility] [id number] [place] [address] [id number] Aug, [facility] [address] [facility] [id number] [address] [place] [phone] Aug, [facility] [address] [facility] [address] [id number], [place] [id number] Aug, [address] [id number], [place] [id number] Aug, [facility] [address] [facility] [id number] [address] [place] [phone] Aug, [id number] [place] [address] [id number] Aug, Severe episode of recurrent major depres sive disorder, without psychotic features F33.2 ; Borderline personality disorder F60.3 ; Anxiety F41.9 and Attachment disorder F94.1 [facility] [address] [facility] [id number] [address] [place] [phone] Jul, [facility] [address] [place] [id number] [address] [place] [phone] Jul, DANIELA (generalized anxiety dis order) F41.1 ; Severe episode of recurrent major depressive disorder, without psychotic features F33.2 ; Mixed obsessional thoughts and acts F42.2 and Borderline personality disorder F60.[address] [id number], [place] [id number] Jul, [facility] [address] [facility] [id number] [address] [place] [phone] Jul, [facility] [address] [facility] [id number] [address] [place] [phone] 14 Jul, 2019 [facility] [address] [facility] [id number] [address] [place] [phone] Jul, [facility] [address] [facility] [id number] [address] [place] [phone] 07 Jul, 2019 [facility] [address] [facility] [id number] [address] [place] [phone] Jun, DANIELA (generalized anxiety dis order) F41.1 ; Severe episode of recurrent major depressive disorder, without psychotic features F33.2 ; Mixed obsessional thoughts and acts F42.2 and Borderline personality disorder F60.[address] [id number], [place] [id number] Jun, [id number] [place] [address] [id number] Jun, [place] [address] [facility] [id number] [address] [place] [phone] Jun, [place] [address] [facility] [id number] [address] [place] [phone] Jun, DANIELA (generalized anxiety dis order) F41.1 ; Severe episode of recurrent major depressive disorder, without psychotic features F33.2 ; Mixed obsessional thoughts and acts F42.2 and Borderline personality disorder F60.[id number] [place] [address] [id number] 16 Jun, [address] [id number] [place] [address] [id number] 14 Jun, [id number] [place] [address] [id number] Jun, [id number] [place] [address] [id number] Jun, Benign essential hypertension I10 ; Morb id obesity E66.01 ; Severe episode of recurrent major depressive disorder, without psychotic features F33.2 ; Excess skin L98.7 and Hyperlipemia E78.5 [place] [address] [facility] [id number] [address] [place] [phone] Jun, [place] [address] [facility] [id number] [address] [place] [phone] May, [facility] [address] [facility] [id number] [address] [place] [phone] May, Severe episode of recurrent major depressive disorder, without psychotic features F33.2 ; Mixed obsessional thoughts and acts F42.2 ; DANIELA (generalized anxiety disorder) F41.1 and Borderline personality disorder F60.3 [facility] [address] [facility] [id number] [address] [place] [phone] May, [facility] [address] [facility] [id number] [address] [place] [phone] May, DANIELA (generalized anxiety dis order) F41.1 ; Severe episode of recurrent major depressive disorder, without psychotic features F33.2 ; Mixed obsessional thoughts and acts F42.2 and Borderline personality disorder F60.3 [facility] [address] [facility] [id number] [address] [place] [phone] May, [facility] [address] [facility] [id number] [address] [place] [phone] May, [facility] [address] [facility] [id number] [address] [place] [phone] May, Severe episode of recurrent major depressive disorder, without psychotic features F33.2 ; Mixed obsessional thoughts and acts F42.2 ; Borderline personality disorder F60.3 and DANIELA (generalized anxiety disorder) F41.1 [facility] [address] [id number] [address] [place] [address] [id number] May, Caries K02.[address] [facility] [address] [id number], [place] [id number] May, Benign essential hypertension I10 [facility] [place] [address] [id number], [place] [id number] Apr, [facility] [place] [address] [id number], [place] [id number] Apr, Benign essential hypertension I10 [facility] [address] [facility] [id number] [address] [place] [phone] Apr, Borderline personality disor romero F60.3 ; DANIELA (generalized anxiety disorder) F41.1 ; Mixed obsessional thoughts and acts F42.2 and Severe episode of recurrent major depressive disorder, without psychotic features F33.[address] [facility] [address] [id number], [place] [id number] Apr, [address] [id number], [place] [id number] Apr, Benign essential hypertension I10 [facility] [address] [place] [phone] Apr, Severe episode of recurrent major depressive disorder, without psychotic features F33.2 ; DANIELA (generalized anxiety disorder) F41.1 ; Borderline personality disorder F60.3 and Mixed obsessional thoughts and acts F42.2 [facility] [address] [id number] [address] [place] [address] [id number] Apr, Dental examination Z01.20 [facility] [id number] [place] [address] [id number] Apr, Caries K02.9 and Dental exam ination Z01.20 [facility] [address] [place] [id number] [address] [place] [phone] Apr, DANIELA (generalized anxiety dis order) F41.1 ; Severe episode of recurrent major depressive disorder, without psychotic features F33.2 ; Mixed obsessional thoughts and acts F42.2 and Borderline personality disorder F60.3 [facility] [address] [place] [id number] [address] [place] [phone] Mar, Severe episode of recurrent major depressive disorder, without psychotic features F33.2 ; Mixed obsessional thoughts and acts F42.2 ; Borderline personality disorder F60.3 and DANIELA (generalized anxiety disorder) F41.1 [facility] [address] [place] [id number] [address] [place] [phone] Mar, Severe episode of recurrent major depressive disorder, without psychotic features F33.2 ; Mixed obsessional thoughts and acts F42.2 ; DANIELA (generalized anxiety disorder) F41.1 and Borderline personality disorder F60.3 [facility] [address] [id number] [address] [place] [address] [id number] Mar, Dental examination Z01.20 an d Caries K02.[address] [place] [address] [id number], [place] [id number] Mar, Benign essential hypertension I10 and Fa lling episodes R29.6 [facility] [address] [facility] [id number] [address] [place] [phone] Mar, [facility] [address] [facility] [id number] [address] [place] [phone] Mar, Severe episode of recurrent major depressive disorder, without psychotic features F33.2 ; Mixed obsessional thoughts and acts F42.2 ; Borderline personality disorder F60.3 and DANIELA (generalized anxiety disorder) F41.1 [facility] [address] [facility] [id number] [address] [place] [phone] Mar, [place] [address] [facility] [id number] [address] [place] [phone] Mar, [address] [id number], [place] [id number] Mar, [facility] [address] [facility] [id number] [address] [place] [phone] Mar, Severe episode of recurrent major depressive disorder, without psychotic features F33.2 ; Mixed obsessional thoughts and acts F42.2 ; Borderline personality disorder F60.3 and DANIELA (generalized anxiety disorder) F41.1 [place] [address] [facility] [id number] [address] [place] [phone] Mar, [facility] [address] [facility] [id number] [address] [place] [address] [id number] Feb, Dental examination Z01.20 an d Periodontitis K05.30 [facility] [address] [facility] [id number] [address] [place] [phone] Feb, DANIELA (generalized anxiety dis order) F41.1 ; Severe episode of recurrent major depressive disorder, without psychotic features F33.2 ; Mixed obsessional thoughts and acts F42.2 and Borderline personality disorder F60.[address] [place] [address] [id number], [place] [id number] Feb, Acute pain of right knee M25.561 ; Fall, initial encounter W19.XXXA ; Benign essential hypertension I10 and Edema R60.9 [facility] [address] [facility] [id number] [address] [place] [phone] Feb, [facility] [address] [facility] [id number] [address] [place] [phone] Feb, DANIELA (generalized anxiety dis order) F41.1 ; Severe episode of recurrent major depressive disorder, without psychotic features F33.2 ; Mixed obsessional thoughts and acts F42.2 and Borderline personality disorder F60.3 [facility] [address] [facility] [id number] [address] [place] [phone] Feb, [facility] [address] [facility] [id number] [address] [place] [phone] Jan, [facility] [address] [facility] [id number] [address] [place] [phone] Jan, [facility] [address] [facility] [id number] [address] [place] [phone] Jan, [facility] [id number] [place] [address] [id number] Jan, Callus of heel L84 ; Fissure in skin R23 .4 and Hammer toe of second toe of right foot M20.[address] [facility] [address] [id number], [place] [id number] Jan, [facility] [address] [facility] [id number] [address] [place] [phone] Jan, [facility] [address] [facility] [id number] [address] [place] [phone] Jan, [facility] [address] [facility] [id number] [address] [place] [phone] Jan, Severe episode of recurrent major depressive disorder, without psychotic features F33.2 ; DANIELA (generalized anxiety disorder) F41.1 ; Mixed obsessional thoughts and acts F42.2 and Borderline personality disorder F60.3 [place] [address] [facility] [id number] [address] [place] [phone] Jan, [facility] [address] [facility] [id number][place] [id number] Jan, Benign essential hypertension I10 [place] [address] [facility] [id number] [place] [address] [id number] Dec, Callous ulcer, limited to breakdown of s kin L98.491 and Morbid obesity E66.01 [facility] [address] [facility] [id number] [address] [place] [phone] Dec, [facility] [address] [facility] [id number] [address] [place] [id number] Dec, [facility] [address] [facility] [id number] [address] [place] [phone] Dec, [facility] [address] [place] [id number] [address] [place] [phone] Dec, [facility] [address] [facility] [id number] [address] [place] [phone] Dec, Severe episode of recurrent major depressive disorder, without psychotic features F33.2 [facility] [address] [facility] [id number] [address] [place] [phone] Dec, DANIELA (generalized anxiety dis order) F41.1 ; Severe episode of recurrent major depressive disorder, without psychotic features F33.2 ; Mixed obsessional thoughts and acts F42.2 and Dependent personality disorder F60.7 [facility] [address] [facility] [address] [id number], [place] [id number] Dec, Morbid obesity E66.01 [facility] [address] [facility] [id number] [address] [place] [phone] Dec, [facility] [address] [facility] [id number] [address] [place] [phone] Dec, [address] [id number] [address] Nov, [facility] [place] [address] [facility] [address] [id number], [place] [id number] Nov, [facility] [address] [facility] [id number] [address] [place] [id number] Nov, [facility] [address] [facility] [id number] [address] [place] [phone] Nov, [facility] [address] [facility] [id number] [address] [place] [phone] Nov, DANIELA (generalized anxiety dis order) F41.1 ; Severe episode of recurrent major depressive disorder, without psychotic features F33.2 ; Mixed obsessional thoughts and acts F42.2 and Dependent personality disorder F60.7 [facility] [id number][place] [id number] Nov, Morbid obesity E66.01 [facility] [address] [facility] [id number] [address] [place] [phone] Nov, [facility] [address] [facility] [id number] [address] [place] [phone] Nov, DANIELA (generalized anxiety dis order) F41.1 ; Mixed obsessional thoughts and acts F42.2 ; Severe episode of recurrent major depressive disorder, without psychotic features F33.2 and Dependent personality disorder F60.[address] [id number], [place] [id number] October, Morbid obesity E66.[address] [id number], [place] [id number] October, Benign essential hypertension I10 and Mo rbid obesity E66.[address] [id number], [place] [id number] October, [facility] [address] [facility] [id number] [address] [place] [phone] October, Severe episode of recurrent major depressive disorder, without psychotic features F33.[address] [id number], [place] [id number] October, Morbid obesity E66.01 [facility] [address] [facility] [address] [id number], [place] [id number] October, [facility] [address] [facility] [id number] [address] [place] [phone] October, Severe episode of recurrent major depressive disorder, without psychotic features F33.2 ; DANIELA (generalized anxiety disorder) F41.1 ; Mixed obsessional thoughts and acts F42.2 and Dependent personality disorder F60.[address] [id number], [place] [id number] October, Morbid obesity E66.01 [facility] [address] [place] [id number] [address] [place] [address] [id number] Sep, Dental examination Z01.[id number] [place] [address] [id number] Sep, [facility] [address] [place] [id number] [address] [place] [address] Sep, Sore in mouth K13.79 and Mor bid obesity E66.01 [facility] [address] [id number] [address] [place] [address] Sep, Dental examination Z01.20 [facility] [id number] [place] [phone] Sep, Anxiety disorder, unspecifie d F41.9 [facility] [address] [facility] [address] [id number], [place] [id number] Sep, Mouth ulcer K12.[address] [id number], [place] [id number] Sep, Morbid obesity E66.[address] [id number], [place] [id number] Sep, Allergic rhinitis, unspecified seasonali ty, unspecified trigger J30.9 and Shortness of breath R06.[address] [id number], [place] [id number] Sep, 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 [facility] [address] [id number], [place] [id number] Aug, Mouth abscess K12.2 ; Mouth ulcer K12.1 ; Bloating R14.0 and Morbid obesity E66.01 [facility] [address] [place] [address] AVE [id number], [place] [id number] Aug, [facility] OR[address]COBROWNLEE[address] [id number], [place] [id number] Aug, [facility] [address] [id number], [place] [id number] Jul, Major depressive disorder, recurrent, mo derate F33.1 ; Abscess of arm, left L02.414 ; BMI 45.0-49.9, adult Z68.42 and Morbid obesity E66.01 [facility] [address] [id number], [place] [id number] Jul, [facility] [address] [id number], [place] [id number] Jul, [facility] [address] [id number], [place] [id number] Jun, Pain in right knee M25.561 and Other chr onic pain G89.29 [facility] [address] [id number], [place] [id number] Jun, Benign essential hypertension I10 ; BMI 45.0-49.9, adult Z68.42 ; Morbid obesity E66.01 ; Vitamin D deficiency E55.9 ; Insomnia G47.00 ; Dependent personality disorder F60.7 ; Edema R60.9 ; Recurrent major depressive disorder, in partial remission F33.41 ; Chronic fatigue R53.82 ; Acute pain of right knee M25.561 ; Metabolic syndrome E88.81 and Irritable mood R45.4 [facility] [address] [facility] [id number] 100[place] [address] Jun, [address] [id number], [place] [id number] Jun, Irritable mood R45.4 [facility] [address] [facility] [id number] [address] [place] [phone] May, [facility] [address] [id number] [address] [place] [phone] May, [facility] [address] [facility] [id number] [place] [phone] May, Recurrent major depressive d isorder, in partial remission F33.41 ; Mixed obsessional thoughts and acts F42.2 ; Dependent personality disorder F60.7 and BMI 45.0-49.9, adult Z68.42 [address] [id number] [address] [place] [phone] Apr, [facility] [id number] [place] [phone] Apr, [facility] [address] [id number] [address] [place] [phone] Apr, [facility] [id number] [place] [phone] Apr, [facility] [address] [id number] [address] [place] [phone] Mar, Mixed obsessional thoughts a nd acts F42.2 ; Recurrent major depressive disorder, in partial remission F33.41 ; DANIELA (generalized anxiety disorder) F41.1 and BMI 45.0-49.9, adult Z68.[address] [facility] [address] [id number], [place] [id number] Mar, [address] [id number], [place] [id number] Mar, BMI 45.0-49.9, adult Z68.42 ; Instabilit y of right knee joint M25.361 and Rash R21 [address] [facility] [id number] [address] [place] [phone] Jan, Recurrent major depressive d isorder, in partial remission F33.41 ; Mixed obsessional thoughts and acts F42.2 and BMI 45.0-49.9, adult Z68.42 [facility] [address] [id number], [place] [id number] Jan, [facility] [address] [id number], [place] [id number] Jan, Benign essential hypertension I10 ; BMI 45.0-49.9, adult Z68.42 ; Metabolic syndrome E88.81 and Allergic rhinitis, unspecified seasonality, unspecified trigger J30.[address] [id number] [address] [place] [phone] Dec, DANIELA (generalized anxiety dis order) F41.1 and Depressive disorder, not elsewhere classified F32.9 [facility] [address] [id number], [place] [id number] Dec, Recurrent major depressive disorder, in partial remission F33.41 [facility] [address] [id number], [place] [id number] Dec, [facility] OR[facility]CO[facility] [address] [id number], [place] [id number] Nov, [facility] [address] [address] [id number], [place] [id number] Nov, Recurrent major depressive disorder, in partial remission F33.41 [address] [facility] [id number] [address] [place] [phone] Nov, Recurrent major depressive d isorder, in partial remission F33.41 ; Mixed obsessional thoughts and acts F42.2 ; DANIELA (generalized anxiety disorder) F41.1 and BMI 45.0-49.9, adult Z68.42 [facility] [address] [id number], [place] [id number] Nov, [facility] [address] [id number], [place] [id number] Nov, Other conjunctivitis of both eyes H10.89 and Sciatica, right side M54.31 [facility] [address] [id number], [place] [id number] Nov, [facility] [address] [id number], [place] [id number] Nov, [facility] [address] [id number], [place] [id number] October, [facility] [address] [id number], [place] [id number] October, [facility] [address] [facility] [id number] [place] [address] October, BMI 45.0-49.9, adult Z68.42 ; Mixed obsessional thoughts and acts F42.2 ; Recurrent major depressive disorder, in partial remission F33.41 and DANIELA (generalized anxiety disorder) F41.1 [facility] [address] [id number], [place] [id number] October, Benign essential hypertension I10 ; Morb id obesity E66.01 and BMI 45.0-49.9, adult Z68.42 [facility] Jama [facility] [id number], [place] [id number] Sep, [facility] Bender[address] [place] [address] AVE [id number], [place] [id number] Sep, [facility] [address] [id number], [place] [id number] Sep, [facility] [address] [id number], [place] [id number] Sep, Hospital discharge follow-up Z09 ; Aller gic rhinitis, unspecified seasonality, unspecified trigger J30.9 and Shortness of breath R06.02 [facility] [address] [id number], [place] [id number] Sep, Recurrent major depressive disorder, in partial remission F33.[address] [id number], [place] [id number] Aug, Irritable mood R45.4 [address] [address] [facility] [id number] [address] [place] [phone] 09 Aug, [address] [id number] [place] [address] [id number] Jul, Benign essential hypertension I10 ; Robert a R60.9 and Impacted cerumen of left ear H61.22 [address] [facility] [id number] [address] [place] [phone] 14 Jul, 2017 Major depression F32.9 ; Rec urrent major depressive disorder, in partial remission F33.41 and Anxiety F41.9 [address] [facility] [id number] [address] [place] [phone] Jun, Major depression F32.9 ; Rec urrent major depressive disorder, in partial remission F33.41 and Anxiety F41.[address] [id number], [place] [id number] Jun, Major depression F32.9 ; Morbid obesity E66.01 ; Irritable mood R45.4 ; Hand weakness R29.898 and Vitamin D deficiency E55.[address] [id number], [place] [id number] Jun, [id number] [place] [address] [id number] May, Major depression F32.9 [address] [facility] [id number] [address] [place] [phone] May, Major depression F32.[id number] [place] [address] [phone] May, BMI 50.0-59.9, adult Z68.43 ; Major depr ession F32.9 ; Anxiety F41.9 ; Hypertrophic toenail L60.2 and Pain of left great toe M79.[address] [facility] [address] [id number], [place] [id number] May, Recurrent major depressive disorder, in partial remission F33.41 [facility] [address] [facility] [id number] [address] [place] [phone] Apr, [facility] [id number] [place] [address] [id number] Apr, [facility] [address] [facility] [id number] [address] [place] [phone] Apr, Major depression F32.9 [facility] [id number] [place] [address] [id number] Apr, Severe episode of recurrent major depres sive disorder, without psychotic features F33.2 ; Anxiety F41.9 and Insomnia G47.00 [facility] [id number] [place] [address] [id number] Apr, [facility] [address] [id number] [address] [place] [phone] Apr, [facility] [id number] [place] [address] [id number] Apr, [facility] [address] [id number], [place] [id number] Mar, [facility] [id number] [place] [address] [id number] Mar, Allergic conjunctivitis of both eyes H10 .13 [facility] [address] [facility] [id number] [address] [place] [id number] Mar, Major depression F32.9 [facility] [id number] [place] [address] [id number] Mar, Metabolic syndrome E88.81 ; History of g astric bypass Z98.890 ; Benign essential hypertension I10 ; Allergic conjunctivitis of both eyes H10.13 and Morbid obesity E66.01 [facility] [address] [facility] [id number] [address] [place] [phone] Mar, Major depression F32.9 [facility] [address] [facility] [address] [id number], [place] [id number] Feb, [facility] [address] [facility] [id number] [address] [place] [phone] Feb, Major depression F32.[address] [id number], [place] [id number] Feb, Subacute maxillary sinusitis J01.00 and Bronchitis J40 [facility] [address] [facility] [id number] [address] [place] [phone] Feb, Major depressive disorder, r ecurrent, moderate F33.1 [facility] [address] [facility] [address] [id number], [place] [id number] Jan, [address] [id number] [place] [address] [id number] Jan, Acute non-recurrent maxillary sinusitis J01.00 and Skin tag L91.[address] [id number] [place] [address] [id number] Jan, Cough R05 and Sinus congestion R09.[address] [id number], [place] [id number] Jan, [address] [id number] [place] [address] [id number] Jan, Benign essential hypertension I10 ; Hist ory of gastric bypass Z98.890 and Nausea and vomiting in adult R11.2 [facility] [address] [facility] [id number] [address] [place] [phone] Jan, Major depressive disorder, r ecurrent, moderate F33.1 [facility] [address] [facility] [id number] [address] [place] [phone] Dec, Insomnia G47.00 ; Recurrent major depressive disorder, in partial remission F33.41 and Morbid obesity E66.[address] [id number], [place] [id number] Dec, [facility] [address] [facility] [address] [id number], [place] [id number] Dec, Chronic bacterial conjunctivitis of left eye H10.402 [facility] TORRIE Bender[address] [facility] [address] [id number], [place] [id number] Nov, [facility] [place] [address] [place] [address] AVE [id number], [place] [id number] Nov, Dental examination Z01.[address] [id number], [place] [id number] Nov, Benign essential hypertension I10 ; Hist ory of gastric bypass Z98.890 and Nausea and vomiting in adult R11.2 [place] [id number] [place] [phone] Nov, Major depressive disorder, r ecurrent, moderate F33.1 ; Generalized anxiety disorder F41.1 and Insomnia due to other mental disorder F51.05 [place] [id number] [place] [phone] Nov, Recurrent major depressive d isorder, in partial remission F33.41 ; Insomnia G47.00 and Morbid obesity E66.01 [facility] [address] [id number] [place] [id number] October, Abscess of left arm L02.414 [address] [place] [phone] October, Morbid obesity E66.01 ; Lida r depression F32.9 and Recurrent major depressive disorder, in partial remission F33.41 [facility] [address] [facility] [id number], [place] [id number] Sep, Benign essential hypertension I10 ; Morb id obesity E66.01 ; S/P gastric bypass Z98.84 ; Abscess L02.91 and Chronic bacterial conjunctivitis of left eye H10.402 [facility] [address] [facility] [address] [id number], [place] [id number] Sep, Dental examination Z01.20 [address] [address] [facility] [id number] [address] [place] [phone] Sep, Morbid obesity E66.01 ; Lida r depression F32.9 and Recurrent major depressive disorder, in partial remission F33.41 [address] [address] [facility] [id number] [address] [place] [id number] Jul, [place] [address] [facility] [id number] [address] [place] [phone] Jul, Major depressive disorder, r ecurrent, moderate F33.1 [place] [id number] [place] [phone] Jul, Major depressive disorder, r ecurrent, moderate F33.1 and Generalized anxiety disorder F41.[id number] [place] [address] [id number] Jul, Cough R05 [place] [address] [id number] [address] [place] [phone] Jul, Morbid obesity E66.01 ; Lida r depression F32.9 and Recurrent major depressive disorder, in partial remission F33.[address] [id number], [place] [id number] Jul, [address] [id number], [place] [id number] Jul, [id number] [place] [address] [id number] Jul, Gastroenteritis K52.9 and Cough R05 [id number] [place] [address] [id number] Jun, Acute bacterial conjunctivitis of left e ye H10.32 [place] [address] [facility] [id number] [address] [place] [phone] Jun, [place] [address] [facility] [id number] [address] [place] [phone] Jun, Recurrent major depressive d isorder, in partial remission F33.41 [facility] [address] [facility] [id number] [address] [place] [phone] May, Major depression F32.9 and M orbid obesity E66.01 [facility] [address] [facility] [id number] [address] [place] [phone] May, [facility] [address] [place] [address] [id number] [place] [address] [id number] May, Thrush B37.0 [place] [address] [facility] [id number] [address] [place] [phone] Apr, Major depressive disorder, r ecurrent, moderate F33.1 [place] [address] [place] [id number] [address] [place] [phone] Apr, Insomnia G47.00 ; Major depr ession F32.9 and Recurrent major depressive disorder, in partial remission F33.41 [facility] [address] [facility] [id number] [address] [place] [phone] Apr, [place] [address] [facility] [id number] [address] [place] [phone] Apr, Major depression F32.9 and R ecurrent major depressive disorder, in partial remission F33.[id number] [place] [address] [id number] Mar, Benign essential hypertension I10 ; Morb id obesity E66.01 ; Impacted cerumen of both ears H61.23 ; Laceration of finger of right hand, initial encounter S61.219A and Encounter for immunization Z23 [facility] [address] [facility] [id number] [address] [place] [phone] Mar, [facility] [address] [facility] [id number] [address] [place] [phone] Mar, [place] [address] [facility] [id number] [address] [place] [phone] Mar, [facility] [address] [id number], [place] [id number] Feb, Nausea R11.0 ; Blood in the stool K92.1 and Benign essential hypertension I10 [facility] [address] [facility] [id number] [address] [place] [phone] Feb, Major depression F32.9 and R ecurrent major depressive disorder, in partial remission F33.41 [facility] [address] [id number], [place] [id number] Feb, [facility] [address] [id number], [place] [id number] Feb, Recurrent major depressive disorder, in partial remission F33.41 [facility] [address] [id number], [place] [id number] Jan, [facility] [id number] [place] [address] [id number] Jan, Benign essential hypertension I10 ; Robert a R60.9 and Hyperlipidemia, unspecified hyperlipidemia type E78.5 [facility] [address] [id number], [place] [id number] Jan, Recurrent major depressive disorder, in partial remission F33.41 [facility] [address] [id number] [place] [id number] Jan, [facility] [address] [id number], [place] [id number] Jan, [facility] [address] [id number], [place] [id number] Jan, [facility] [address] [facility] [id number] [address] [place] [phone] Jan, [facility] [address] [facility] [id number] [address] [place] [phone] Dec, [facility] [address] [facility] [id number] [address] [place] [phone] Nov, [facility] [address] [facility] [id number] [address] [place] [phone] Nov, Major depression F32.9 [facility] [address] [facility] [id number] [address] [place] [phone] Nov, [facility] [address] [facility] [id number] [address] [place] [phone] Nov, [facility] [address] [facility] [id number] [address] [place] [phone] Nov, Major depressive disorder, r ecurrent episode, mild F33.0 and Anxiety F41.[id number] [place] [address] [id number] Nov, [address] [id number] [place] [address] [id number] October, Left elbow pain M25.522 and Other season al allergic rhinitis J30.[address] [id number] [place] [address] [id number] October, [facility] [address] [id number] [address] [place] [phone] October, Major depressive disorder, r ecurrent, moderate F33.1 [facility] [address] [facility] [id number] [address] [place] [phone] October, Major depression F32.9 [facility] [address] [facility] [id number] [address] [place] [phone] Sep, [place] or callus L84 and Onych omycosis B35.1 [facility] [address] [facility] [id number] [address] [place] [phone] Sep, Major depressive disorder, r ecurrent, moderate F33.1 [facility] [address] [facility] [id number] [address] [place] [phone] Sep, Major depression F32.9 [facility] [address] [facility] [id number] [address] [place] [phone] Sep, Moderate episode of recurren t major depressive disorder F33.1 [facility] [address] [facility] [address] [id number], [place] [id number] Sep, Muscle strain T14.8 [facility] [address] [facility] [id number] [address] [place] [id number] Aug, Major depression F32.9 [facility] [address] [facility] [id number] [address] [place] [id number] Aug, Major depression F32.9 [facility] [address] [facility] [id number] [address] [place] [id number] Jul, Morbid obesity E66.01 and Ma cora depression F32.9 [facility] [address] [facility] [id number] [address] [place] [phone] Jul, Depression, major, recurrent , moderate F33.1 [facility] [id number] [place] [id number] Jul, [facility] [address] [facility] [id number] [address] [place] [phone] Jul, [facility] [address] [facility] [id number] [address] [place] [phone] Jul, Major depression F32.9 and M orbid obesity E66.01 [facility] [address] [place] [address] AVE [id number] [id number] Jul, Type II diabetes mellitus E11.9 ; Callus of foot L84 ; Benign essential hypertension I10 and Renal insufficiency N28.9 [facility] [address] [facility] [id number] [address] [place] [phone] [id number] Jul, 2015 Depression, major, recurrent , moderate F33.1 [facility] [address] [facility] [id number] [address] [place] [phone] Jul, Major depression F32.9 [facility] [address] [place] [id number] [address] [place] [address] 04 Jul, 2015 [facility] [address] [facility] [id number] [address] Jun, Major depression F32.9 [facility] [address] [facility] [id number] [address] [place] [address] Jun, Major depressive disorder, r ecurrent, moderate F33.1 [place] [address] [address] Jun, [place] [address] [place] [id number] [place] [address] Jun, Major depressive disorder, r ecurrent, moderate F33.1 and Major depression F32.[address] [place] [id number] [place] [id number] Jun, Type II diabetes mellitus E11.9 [place] [address] [place] [id number] [address] [place] [address] Jun, Depression, major, recurrent , moderate F33.1 [place] [address] [place] [id number] [address] [place] [address] May, Major depressive disorder, r ecurrent, moderate F33.1 [place] [address] [place] [id number] [address] [place] [address] May, [facility] [address] [id number] [id number] May, Edema R60.9 [place] [address] [place] [id number] [address] [place] [address] May, Insomnia G47.00 and Major de pression F32.[address] [facility] [address] [id number][place] [id number] May, Morbid obesity E66.01 ; Edema R60.9 ; Sh ortness of breath R06.02 ; Benign essential hypertension I10 and Renal insufficiency N28.[address] [facility] [address] [id number] [id number] May, Hyperlipemia 272.4 and Renal insufficien cy N28.9 [place] [address] [facility] [id number] [address] [place] [address] Apr, Major depression F32.9 [place] [address] [facility] [id number] [address] [place] [address] Apr, [place] [address] [facility] [id number] [address] [place] [address] Apr, Major depressive disorder, r ecurrent, moderate F33.1 [facility] [address] [place] [address] A[id number] [place] [address] [id number] Apr, Type II diabetes mellitus E11.9 ; Benign essential hypertension I10 ; Edema R60.9 and Renal insufficiency N28.9 [place] [address] [place] [id number] [address] [place] [address] Mar, Major depressive disorder, r ecurrent, moderate F33.1 [place] [address] [facility] [id number] [address] [place] [address] Mar, [place] [id number] [address] [place] [address] Mar, Major depression F32.[address] [id number] [place] [address] [id number] Mar, Morbid obesity E66.01 ; Benign essential hypertension I10 and Type II diabetes mellitus E11.9 [place] [address] [facility] [id number] [address] [place] [address] Feb, Major depressive disorder, r ecurrent, moderate F33.1 [place] [address] [facility] [id number] [address] [place] [address] Feb, Major depressive disorder, r ecurrent episode, in partial or unspecified remission 296.35 ; Anxiety state, unspecified 300.00 and Morbid obesity 278.01 [place] [address] [place] [id number] [address] [place] [address] Feb, [facility] [address] [place] [address] AVE [id number] [id number] Feb, Vomiting 787.03 and Viral syndrome 079.9 9 [facility] [address] [place] [id number] [address] [place] [address] Feb, Major depression, recurrent 296.30 ; Generalized anxiety disorder 300.02 and No condition on [place] II V71.[id number] [place] [address] [id number] Feb, Skin tag 701.9 [place] [address] [place] [id number] [address] [place] [address] Feb, [place] [address] [place] [id number] [address] [place] [address] Jan, Depression, major, recurrent , moderate 296.[address] [id number][place] [id number] Jan, Nausea and vomiting 787.01 ; Rib pain on right side 786.50 and Fall on or from sidewalk curb E880.1 [facility] [address] [place] [id number] [address] [place] [address] Jan, [facility] [address] [place] [id number] [address] [place] [address] Jan, Major depressive disorder, r ecurrent episode, in partial or unspecified remission 296.35 and Anxiety state, unspecified 300.00 [facility] [address] [place], [place] [address] [id number][place] [id number] Jan, [facility] [address] [facility] [id number] [address] [place] [address] Jan, Depression, major, recurrent , moderate 296.32 [facility] [address] [place] [id number] [address] [place] [address] Jan, Major depression, recurrent 296.30 ; No condition on [place] II V71.09 and No condition on axis III V71.09 [facility] [address] [facility] [address] [id number][place] [id number] Jan, Drug-induced nausea and vomiting 787.01 [place] [id number] [address] [place] [address] Jan, Depression, major, recurrent , moderate 296.32 [place] [id number] [address] [place] [address] Dec, Depression, major, recurrent , moderate 296.32 [facility] [address] [facility] [address] [id number] [id number] Dec, Morbid obesity 278.01 ; Metabolic syndro me 277.7 ; Hyperlipemia 272.4 ; Benign essential hypertension 401.1 ; Dietary counseling V65.3 ; Exercise counseling V65.41 and Inflamed skin tag 701.9 [place] [id number] [address] [place] [address] Dec, Depression, major, recurrent , moderate 296.32 [place] [id number] [address] [place] [address] Dec, [address] [address] Dec, Major depression, recurrent 296.30 ; Anxiety, generalized 300.02 and No condition on [place] II V71.09 [place] [id number] [address] [place] [address] Dec, Depression, major, recurrent , moderate 296.32 [place] [id number] [address] [place] [address] Dec, Major depressive disorder, r ecurrent episode, moderate 296.32 [place] [id number] [address] [place] [address] Dec, Depression, major, recurrent , moderate 296.32 [place] [id number] [address] [place] [address] Dec, Depression, major, recurrent , moderate 296.32 [place] [address] [address] Dec, Depression, major, recurrent , moderate 296.32 [place] [address] [address] Dec, Depression, major, recurrent , moderate 296.32 [place] [address] [address] Nov, Depression, major, recurrent , moderate 296.32 [place] [address] [address] Nov, Major depression 296.20 ; So cial phobia 300.23 and No condition on [place] II V71.09 [place] [address] [address] Nov, Depression, major, recurrent , moderate 296.32 [place] [address] [address] Nov, Major depressive disorder, r ecurrent episode, moderate 296.32 and Generalized anxiety disorder 300.02 [place] [address] [place] [id number] [address] [place] [address] Nov, Depression, major, recurrent , moderate 296.32 [place] [address] [address] Nov, Depression, major, recurrent , moderate 296.32 [place] [address] [place] [id number] [address] [place] [address] October, Generalized anxiety disorder 300.02 ; No condition on [place] II V71.09 and Major depressive disorder, recurrent 296.30 [place] [address] [place] [id number] [address] [place] [address] 14 Sep, 2014 [place] [address] [address] Sep, [facility] [address] [id number] [facility] [place] [address] 24 Aug, 2014 [facility] [address] [id number] [facility] [place] [address] 24 Aug, 2014 [facility] [address] [id number] [address] [place] [address], [place] [address] 23 Aug, 2014 [facility] [address] [id number] [address] [place] [address], [place] [address] 23 Aug, 2014 [facility] [address] [id number] [address] [place] [address], [place] [address] 20 Aug, 2014 [facility] [address] [id number] [address] [place] [address], [place] [address] 20 Aug, 2014 [facility] [address] [id number] [address] [place] [address], [place] [address] 20 Aug, 2014 [facility] [address] [id number] [address] [place] [address], [place] [address] 20 Aug, 2014 [facility] [address] [id number] [address] [place] [address], [place] [address] 13 Aug, 2014 [facility] [address] [id number] [address] [place] [address], [place] [address] 13 Aug, 2014 [facility] [address] [id number] [address] [place] [address], [place] [address] 13 Aug, 2014 [facility] [address] [id number] [address] [place] [address], [place] [address] 13 Aug, 2014 [facility] [address] [id number] [address] [place] [address], [place] [address] 12 Aug, 2014 [facility] [address] [id number] [address] [place] [address], [place] [address] 12 Aug, 2014 [facility] [address] [id number] [address] [place] [address], [place] [address] 10 Aug, 2014 [facility] [address] [id number] [address] [place] [address], [place] [address] Aug, [facility] [address] [id number] [address] [place] [address], [place] [address] Aug, [facility] [address] [id number] [address] [place] [address], [place] [address] Aug, [facility] [address] [id number] [address] [place] [address], [place] [address] Jul, [facility] [address] [id number] [address] [place] [address], [place] [address] Jul, [facility] [address] [id number] [address] [place] [address], [place] [address] Jul, [facility] [address] [id number] [address] [place] [address], [place] [address] Jul, [facility] [address] [id number] [address] [place] [address], [place] [address] Jul, [facility] [address] [id number] [address] [place] [address], [place] [address] Jul, [facility] [address] [id number] [address] [place] [address], [place] [address] Jun, [facility] [address] [id number] [address] [place] [address], [place] [address] Jun, [facility] [address] [id number] [address] [place] [address], [place] [address] Jun, [facility] [address] [id number] [address] [place] [address], [place] [address] Jun, [facility] [address] [id number] [address] [place] [address], [place] [address] Jun, [facility] [address] [id number] [address] [place] [address], [place] [address] Jun, [facility] [address] [id number] [address] [place] [address], [place] [address] Jun, [facility] [address] [id number] [address] [place] [address], [place] [address] Jun, [facility] [address] [id number] [address] [place] [address], [place] [address] Jun, [facility] [address] [id number] [address] [place] [address], [place] [address] Jun, [facility] [address] [id number] [address] [place] [address], [place] [address] Jun, [facility] [address] [id number] [address] [place] [address], [place] [address] Jun, [facility] [place] [address] [id number] [place] [id number] Jun, [facility] [address] [id number] [address] [place] [address], [place] [address] Jun, [facility] [address] [id number] [address] [place] [address], [place] [address] Jun, [facility] [address] [id number] [address] [place] [address], [place] [address] Jun, [facility] [address] [id number] [address] [place] [address], [place] [address] May, [facility] [address] [id number] [address] [place] [address], [place] [address] May, [facility] [address] [id number] [address] [place] [address] May, [facility] [address] [id number] [address] [place] [address], [place] [address] May, [facility] [address] [id number] [address] [place] [address], [place] [address] Apr, [facility] [address] [id number] [address] [place] [address], [place] [address] Apr, [facility] [address] [id number] [address] [place] [address] Apr, [facility] [address] [id number] [address] [place] [address], [place] [address] Apr, [facility] [address] [id number] [address] [place] [address], [place] [address] Apr, [facility] [address] [id number] [address] [place] [address], [place] [address] Apr, [facility] [address] [id number] [address] [place] [address] Apr, [facility] [address] [id number] [address] [place] [address], [place] [address] Apr, [facility] [address] [id number] [address] [place] [address], [place] [address] Apr, [facility] [address] [id number] [address] [place] [address], [place] [address] Apr, [facility] [address] [id number] [address] [place] [address], [place] [address] Apr, [facility] [address] [id number] [address] [place] [address] Apr, [facility] [address] [id number] [address] [place] [address], [place] [address] Apr, [facility] [address] [id number] [address] [place] [address] Apr, [facility] [address] [id number] [address] [place] [address] Apr, [facility] [address] [id number] [address] [place] [address], [place] [address] Apr, [facility] [address] [id number] [address] [place] [address] Apr, [facility] [address] [id number] [address] [place] [address] Apr, [facility] [address] [id number] [address] [place] [address], [place] [address] Apr, [facility] [address] [id number] [address] [place] [address], [place] [address] Apr, [facility] [address] [id number] [address] [place] [address], [place] [address] Mar, [facility] [address] [id number] [address] [place] [address], [place] [address] Mar, [facility] [address] [id number] [address] [place] [address], [place] [address] Mar, [facility] [address] [id number] [address] [place] [address], [place] [address] Mar, [facility] [address] [id number] [address] [place] [address], [place] [address] Mar, [facility] [address] [id number] [address] [place] [address], [place] [address] Mar, [facility] [address] [id number] [address] [place] [address], [place] [address] Mar, [facility] [address] [id number] [address] [place] [address], [place] [address] Mar, [facility] [address] [id number] [address] [place] [address], [place] [address] Mar, [facility] [address] [id number] [address] [place] [address], [place] [address] Mar, [facility] [address] [id number] [address] [place] [address], [place] [address] Feb, [facility] [address] [id number] [address] [place] [address], [place] [address] Feb, [facility] [address] [id number] [address] [place] [address], [place] [address] Feb, [facility] [address] [id number] [address] [place] [address], [place] [address] Feb, [facility] [address] [id number] [address] [place] [address], [place] [address] Jan, [facility] [address] [id number] [address] [place] [address], [place] [address] Jan, [facility] [address] [id number] [address] [place] [address], [place] [address] Jan, [facility] [address] [id number] [address] [place] [address], [place] [address] Jan, [facility] [address] [id number] [address] [place] [address], [place] [address] Jan, [facility] [address] [id number] [address] [place] [address], [place] [address] Jan, [facility] [address] [id number] [address] [place] [address], [place] [address] Dec, [facility] [address] [id number] [address] [place] [address], [place] [address] Dec, [facility] [address] [id number] [address] [place] [address], [place] [address] Nov, [facility] [address] [id number] [address] [place] [address], [place] [address] Nov, [facility] [address] [id number] [address] [place] [address], [place] [address] Nov, [facility] [address] [id number] [address] [place] [address], [place] [address] Nov, [facility] [address] [id number] [address] [place] [address], [place] [address] Nov, [facility] [address] [id number] [address] [place] [address], [place] [address] Nov, [facility] [address] [id number] [address] [place] [address], [place] [address] Sep, [facility] [address] [id number] [address] [place] [address], [place] [address] Sep, [facility] [address] [id number] [address] [place] [address], [place] [address] Sep, [facility] [address] [id number] [address] [place] [address], [place] [address] Sep, [facility] [address] [id number] [address] [place] [address], [place] [address] Aug, [facility] [address] [id number] [address] [place] [address], [place] [address] Aug, [facility] [address] [id number] [address] [place] [address], [place] [address] Jul, [facility] [address] [id number] [address] [place] [address], [place] [address] Jul, [facility] [address] [id number] [address] [place] [address], [place] [address] Jun, [facility] [address] [id number] [address] [place] [address], [place] [address] Jun, [facility] [address] [id number] [address] [place] [address], [place] [address] Jun, [facility] [address] [id number] [address] [place] [address], [place] [address] Jun, [facility] [address] [id number] [address] [place] [address], [place] [address] May, [facility] [address] [id number] [address] [place] [address], [place] [address] May, [facility] [address] [id number] [address] [place] [address], [place] [address] May, [facility] [address] [id number] [address] [place] [address], [place] [address] May, [facility] [address] [id number] [address] [place] [address], [place] [address] May, [facility] [address] [id number] [address] [place] [address], [place] [address] May, [facility] [address] [id number] [address] [place] [address], [place] [address] Apr, [facility] [address] [id number] [address] [place] [address], [place] [address] Apr, [facility] [address] [id number] [address] [place] [address], [place] [address] Apr, [facility] [address] [id number] [address] [place] [address], [place] [address] Apr, [facility] [address] [id number] [address] [place] [address], [place] [id number] Mar, [facility] [address] [id number] [address] [place] [address], [place] [address] Mar, [facility] [address] [id number] [address] [place] [address], [place] [address] Mar, [facility] [address] [id number] [address] [place] [address], [place] [address] Mar, [facility] [address] [id number] [address] [place] [address], [place] [address] Feb, [facility] [address] [id number] [place] [id number] Jan, [facility] [address] [id number] [address] [place] [address], [place] [address] Jan, [facility] [address] [id number] [address] [place] [address], [place] [address] Dec, [facility] [address] [id number] [address] [place] [address], [place] [address] Dec, [facility] [address] [id number] [address] [place] [address], [place] [address] Dec, [facility] [address] [id number] [place] [id number] Dec, [facility] [address] [id number] [address] [place] [id number] 17 Nov, 2012 [facility] [address] [id number] [address] [place] [id number] Nov, [facility] [address] [id number] [address] [place] [id number] Nov, [facility] [address] [id number] [address] [place] [id number] Nov, [facility] [address] [id number] [address] [place] [id number] Nov, [facility] [address] [id number] [address] [place] [id number] October, [facility] [address] [id number] [address] [place] [id number] October, [facility] [address] [id number] [address] [place] [phone] Aug, [facility] [address] [id number] [address] [place] [id number] Nov, IMMUNIZATIONS No Known Immunizations SOCIAL HISTORY [...] 04/2019 Hospitalization History gastric sleeve Hospitalization History [facility] ER Trouble with left shoulder blade 08/2017
--- OUTSIDE RECORDS SUMMARY | 2019-12-27 11:22 | XMS REPORT | Continuity of Care Document ---
Author Organization Unknown Address Unknown Phone Unavailable Allergies Active Description Code Type Severity Reaction Onset Reported/Identified Relationship to Patient Clinical Status Yes No Known Drug Allergies [id number] Drug Allergy Unknown N/A 11/11/2019 Medications There is no data. Problems Date Dx Coded Attending Type Code Diagnosis Diagnosed By 05/11/1510 ZHOU MCDANIELS, ADEBAYO Bell Ot Z01.818 ENCOUNTER FOR OTHER PREPROCEDURAL EXAMIN 05/11/1510 ADEBAYO EPPERSON MD Ot Z11.59 ENCOUNTER FOR SCREENING FOR OTHER VIRAL 11/23/2011 780.52 INS OMNIA UNSPECIFIED 11/23/2011 780.52 [...] 11/23/2011 SUNIL HEALY APRN 780.52 insomnia 11/23/2011 MIKAELA MELLO, YAZAN Caceres 780. 52 insomnia 11/23/2011 ARLEN GARCIAS APRN 780 .52 insomnia 11/23/2011 KETURAH SHAFFER, QUINTIN Singh 780.52 insomnia 11/23/2011 MIKAELA MELLO, YAZAN Caceres 780. 52 insomnia 10/23/2012 278.01 OBE SITY [...] MERCED CHANDLER MD 787. 91 diarrhea 10/23/2012 RINA DIEZ DO K 278.01 OBESITY MORBID 10/23/2012 RINA DIEZ DO K 401.1 ESSENTIAL HYPERTENSION BENIGN 10/23/2012 RINA DIEZ DO K 724.1 midback pain 10/23/2012 RINA DIEZ DO K 787.91 diarrhea 10/23/2012 CHRIS DIAZ APRN 278.01 OBESITY MORBID 10/23/2012 CHRIS DIAZ APRN 401.1 ESSENTIAL HYPERTENSION BENIGN 10/23/2012 CHRIS DIAZ APRN 724.1 midback pain 10/23/2012 CHRIS DIAZ APRN 787.91 diarrhea 10/23/2012 CHRIS DIAZ APRN 278.01 OBESITY MORBID 10/23/2012 CHRIS DIAZ APRN 401.1 ESSENTIAL HYPERTENSION BENIGN 10/23/2012 CHRIS DIAZ APRN 724.1 midback pain 10/23/2012 JOE ENGLECHRIS Pop J 787.91 diarrhea 10/23/2012 JOE ENGLECHRIS Pop J 278.01 OBESITY MORBID 10/23/2012 DIAZ SCHOOL PROGRAM DIRECTORCHRIS Pop J 401.1 ESSENTIAL HYPERTENSION BENIGN 10/23/2012 DIAZ SCHOOL PROGRAM DIRECTORCHRIS Pop J 724.1 midback pain 10/23/2012 DIAZ CHRIS TONG 787.91 diarrhea 10/23/2012 DIAZ SCHOOL PROGRAM DIRECTORCHRIS Pop J 278.01 OBESITY MORBID 10/23/2012 DIAZ SCHOOL PROGRAM DIRECTORCHRIS Pop J 401.1 ESSENTIAL HYPERTENSION BENIGN 10/23/2012 DIAZ SCHOOL PROGRAM DIRECTORCHRIS Pop J 724.1 midback pain 10/23/2012 DIAZ CHRIS TONG 787.91 diarrhea 10/23/2012 YAZAN AL RN 278. 01 OBESITY MORBID 10/23/2012 YAZAN AL RN 401. 1 ESSENTIAL HYPERTENSION BENIGN 10/23/2012 YAZAN AL RN 724. 1 midback pain 10/23/2012 YAZAN AL RN 787. 91 diarrhea 10/23/2012 YAZAN AL RN 278. 01 OBESITY MORBID 10/23/2012 YAZAN AL RN E 401. 1 ESSENTIAL HYPERTENSION BENIGN 10/23/2012 YAZAN AL RN 724. 1 midback pain 10/23/2012 YAZAN AL RN E 787. 91 diarrhea 10/23/2012 DIEZ DO RINA K 278.01 OBESITY MORBID 10/23/2012 DIEZ DO RINA K 401.1 ESSENTIAL HYPERTENSION BENIGN 10/23/2012 DIEZ DO, RINA K 724.1 midback pain 10/23/2012 DIEZ DO, RINA K 787.91 diarrhea 10/23/2012 YAZAN AL RN [...] MELLO, YAZAN E 787. 91 diarrhea 10/23/2012 MIKAELA MELLO, YAZAN E 278. 01 OBESITY MORBID 10/23/2012 MIKAELA MELLO, YAZAN E 401. 1 ESSENTIAL HYPERTENSION BENIGN 10/23/2012 MIKAELA MELLO, YAZAN E 724. 1 midback pain 10/23/2012 MIKAELA MELLO, YAZAN E 787. 91 diarrhea 10/23/2012 CHRIS DIAZ APRN J 278.01 OBESITY MORBID 10/23/2012 CHRIS DIAZ APRN J 401.1 ESSENTIAL HYPERTENSION BENIGN 10/23/2012 CHRIS DIAZ APRN J 724.1 midback pain 10/23/2012 CHRIS DIAZ APRN J 787.91 diarrhea 10/23/2012 CHRIS DIAZ APRN J 278.01 OBESITY MORBID 10/23/2012 CHRIS DIAZ APRN J 401.1 ESSENTIAL HYPERTENSION BENIGN 10/23/2012 CHRIS DIAZ APRN J 724.1 midback pain 10/23/2012 CHRIS DIAZ APRN J 787.91 diarrhea 10/23/2012 DIEZ DO RINA K 278.01 OBESITY MORBID 10/23/2012 DIEZ DO RINA K 401.1 ESSENTIAL HYPERTENSION BENIGN 10/23/2012 DIEZ DO RINA K 724.1 midback pain 10/23/2012 DIEZ DO RINA K 787.91 diarrhea 10/23/2012 ИРИНА RICHARDSON APRN, SUNIL N 278.01 OBESITY MORBID 10/23/2012 ИРИНА RICHARDSON APRN, SUNIL N 401.1 ESSENTIAL HYPERTENSION BENIGN 10/23/2012 ИРИНА RICHARDSON APRN, SUNIL N 724.1 midback pain 10/23/2012 GIFFORD CASHPHUONG TONG, SUNIL N 787.91 diarrhea 10/23/2012 MIKAELA MELLO, YAZAN E 278. 01 OBESITY MORBID 10/23/2012 MIKAELA MELLO, YAZAN E 401. 1 ESSENTIAL HYPERTENSION BENIGN 10/23/2012 MIKAELA MELLO, YAZAN E 724. 1 midback pain 10/23/2012 MIKAELA MELLO, YAZAN E 787. 91 diarrhea 10/23/2012 ARLEN GARCIAS APRN 278 .01 OBESITY MORBID 10/23/2012 ARLEN GARCIAS APRN 401 .1 ESSENTIAL HYPERTENSION BENIGN 10/23/2012 ARLEN GARCIAS APRN 724 .1 midback pain 10/23/2012 DIETER RAN, ARLEN 787 .91 diarrhea 10/23/2012 KETURAH LCMF, QUINTIN W 278.01 OBESITY MORBID 10/23/2012 KETURAH LCMF, QUINTIN W 401.1 ESSENTIAL HYPERTENSION BENIGN 10/23/2012 KETURAH LCMF, QUINTIN W 724.1 midback pain 10/23/2012 KETURAH LCMF, QUINTIN W 787.91 diarrhea 10/23/2012 MIKAELA MELLO, [...] HEALY APRN E887 FRACTURE CAUSE UNSPECIFIED 11/26/2012 MIKAELA MELLO, YAZAN E E887 FRACTURE CAUSE UNSPECIFIED 11/26/2012 ARLEN GARCIAS APRN E88 7 FRACTURE CAUSE UNSPECIFIED 11/26/2012 KETURAH LIMAF, QUINTIN W E887 FRACTURE CAUSE UNSPECIFIED 11/26/2012 MIKAELA MELLO, [...] THORACIC VERTEBRAL BODY WEDGE COMPRESSION 12/24/2012 DIEZ DO RINA K 272.1 ESSENTIAL HYPERTRIGLYCERIDEMIA 12/24/2012 DIEZ DO RINA K 277.7 DYSMETABOLIC SYNDROME X 12/24/2012 BILL DIEZ DOA K 805.2 FRACTURE OF THORACIC VERTEBRAL BODY WEDGE COMPRESSION 12/24/2012 CHRIS DIAZ APRN J 272.1 ESSENTIAL HYPERTRIGLYCERIDEMIA 12/24/2012 CHRIS DIAZ APRN J 277.7 DYSMETABOLIC SYNDROME X 12/24/2012 CHRIS DIAZ APRN J 805.2 FRACTURE OF THORACIC VERTEBRAL BODY WEDGE COMPRESSION 12/24/2012 CHRIS DIAZ APRN J 272.1 ESSENTIAL HYPERTRIGLYCERIDEMIA 12/24/2012 CHRIS DIAZ APRN J 277.7 DYSMETABOLIC SYNDROME X 12/24/2012 CHRIS DIAZ APRN J 805.2 FRACTURE OF THORACIC VERTEBRAL BODY WEDGE COMPRESSION 12/24/2012 CHRIS DIAZ APRN J 272.1 ESSENTIAL HYPERTRIGLYCERIDEMIA 12/24/2012 CHRIS DIAZ APRN J 277.7 DYSMETABOLIC SYNDROME X 12/24/2012 CHRIS DIAZ APRN J 805.2 FRACTURE OF THORACIC VERTEBRAL BODY WEDGE COMPRESSION 12/24/2012 CHRIS DIAZ APRN J 272.1 ESSENTIAL HYPERTRIGLYCERIDEMIA 12/24/2012 CHRIS DIAZ APRN J 277.7 DYSMETABOLIC SYNDROME X 12/24/2012 CHRIS DIAZ [...] DIAZ APRN 277.7 DYSMETABOLIC SYNDROME X 12/24/2012 DIAZ SCHOOL PROGRAM DIRECTOR, CHRIS J 805.2 FRACTURE OF THORACIC VERTEBRAL BODY WEDGE COMPRESSION 12/24/2012 CHARY FLAHERTY, RINA K 272.1 ESSENTIAL HYPERTRIGLYCERIDEMIA 12/24/2012 CHARY FLAHERTY, RINA K 277.7 DYSMETABOLIC SYNDROME X 12/24/2012 CHARY FLAHERTY, RINA K 805.2 FRACTURE OF THORACIC VERTEBRAL BODY WEDGE COMPRESSION 12/24/2012 GIFFORD CASHERO SCHOOL PROGRAM DIRECTOR, SUNIL N 272.1 ESSENTIAL HYPERTRIGLYCERIDEMIA 12/24/2012 GIFFORD C[employer] S[employer] PROGRAM DIRECTOR, SUNIL N 277.7 DYSMETABOLIC SYNDROME X 12/24/2012 GIFFORD C[employer] S[employer] PROGRAM DIRECTOR, SUNIL N 805.2 FRACTURE OF THORACIC VERTEBRAL BODY WEDGE COMPRESSION 12/24/2012 YAZAN AL RN E 272. 1 ESSENTIAL HYPERTRIGLYCERIDEMIA 12/24/2012 YAZAN AL RN E 277. 7 DYSMETABOLIC SYNDROME X 12/24/2012 YAZAN AL RN E 805. 2 FRACTURE OF THORACIC VERTEBRAL BODY WEDGE COMPRESSION 12/24/2012 DIETER TONG ARLEN 272 .1 ESSENTIAL HYPERTRIGLYCERIDEMIA 12/24/2012 DIETER TONG ARLEN 277 .7 DYSMETABOLIC SYNDROME X 12/24/2012 DIETER TONG ARLEN 805 .2 FRACTURE OF THORACIC VERTEBRAL BODY WEDGE COMPRESSION 12/24/2012 KETURAH LCMF, QUINTIN W 272.1 ESSENTIAL HYPERTRIGLYCERIDEMIA 12/24/2012 KETURAH LCMF, QUINTIN W 277.7 DYSMETABOLIC SYNDROME X 12/24/2012 KETURAH LCMF, QUINTIN W 805.2 FRACTURE OF THORACIC VERTEBRAL BODY WEDGE COMPRESSION 12/24/2012 YAZAN AL RN E 272. 1 ESSENTIAL HYPERTRIGLYCERIDEMIA 12/24/2012 YAZAN AL RN E 277. 7 DYSMETABOLIC SYNDROME X 12/24/2012 MIKAELA MELLO, YAZAN E 805. 2 FRACTURE OF THORACIC VERTEBRAL BODY WEDGE COMPRESSION 04/01/2013 MERCED CHANDLER MD 780. 57 SLEEP APNEA 04/01/2013 RINA DIEZ DO K 780.57 SLEEP APNEA 04/01/2013 CHRIS DIAZ APRN 780.57 SLEEP APNEA 04/01/2013 CHRIS DIAZ APRN 780.57 SLEEP APNEA 04/01/2013 CHRIS DIAZ APRN 780.57 SLEEP APNEA 04/01/2013 CHRIS DIAZ APRN 780.57 SLEEP APNEA 04/01/2013 YAZAN AL RN 780. 57 SLEEP APNEA 04/01/2013 YAZAN AL RN 780. 57 SLEEP APNEA 04/01/2013 DIEZ DO, RINA K 780.57 SLEEP APNEA 04/01/2013 YAZAN AL RN 780. 57 SLEEP APNEA 04/01/2013 YAZAN AL RN 780. 57 SLEEP APNEA 04/01/2013 YAZAN AL RN 780. 57 SLEEP APNEA 04/01/2013 CHRIS DIAZ APRN 780.57 SLEEP APNEA 04/01/2013 CHRIS DIAZ APRN 780.57 SLEEP APNEA 04/01/2013 DIEZ DO, RINA K 780.57 SLEEP APNEA 04/01/2013 SUNIL HEALY APRN 780.57 SLEEP APNEA 04/01/2013 YAZAN AL RN 780. 57 SLEEP APNEA 04/01/2013 ARLEN GARCIAS APRN 780 .57 SLEEP APNEA 04/01/2013 QUINTIN JONES 780.57 SLEEP APNEA 04/01/2013 YAZAN AL RN 780. 57 SLEEP APNEA 04/18/2013 DIEZ DO, RINA K V65.3 DIETARY SURVEILLANCE AND COUNSELING 04/18/2013 CHARY DO RINA K V65.41 EXERCISE COUNSELING 04/18/2013 CHRIS DIAZ APRN [...] AL RN V65. 41 EXERCISE COUNSELING 04/18/2013 DIEZ DO RINA K V65.3 DIETARY SURVEILLANCE AND COUNSELING 04/18/2013 DIEZ DO RINA K V65.41 EXERCISE COUNSELING 04/18/2013 YAZAN AL RN [...] DIAZ APRN V65.41 EXERCISE COUNSELING 04/18/2013 DIEZ DO RINA K V65.3 DIETARY SURVEILLANCE AND COUNSELING 04/18/2013 DIEZ DO RINA K V65.41 EXERCISE COUNSELING 04/18/2013 SUNIL HEALY APRN V65.3 DIETARY SURVEILLANCE AND COUNSELING 04/18/2013 SUNIL HEALY APRN V65.41 EXERCISE COUNSELING 04/18/2013 YAZAN AL RN V65. 3 DIETARY SURVEILLANCE AND COUNSELING 04/18/2013 YAZAN AL RN V65. 41 EXERCISE COUNSELING 04/18/2013 ARLEN GACRIAS APRN V65 .3 DIETARY SURVEILLANCE AND COUNSELING 04/18/2013 ARLEN GARCIAS APRN V65 .41 EXERCISE COUNSELING 04/18/2013 QUINTIN JONES V65.3 DIETARY SURVEILLANCE AND COUNSELING 04/18/2013 QUINTIN JONES V65.41 EXERCISE COUNSELING 04/18/2013 YAZAN AL RN V65. 3 DIETARY SURVEILLANCE AND COUNSELING 04/18/2013 YAZAN AL RN V65. 41 EXERCISE COUNSELING 07/26/2013 CHRIS DIAZ APRN 472.0 RHINITIS 07/26/2013 CHRIS DIAZ APRN 786.09 snoring 07/26/2013 DIAZ SCHOOL PROGRAM DIRECTOR, CHRIS J 472.0 RHINITIS 07/26/2013 DIAZ SCHOOL PROGRAM DIRECTOR, CHRIS J 786.09 snoring 07/26/2013 DIAZ SCHOOL PROGRAM DIRECTOR, CHRIS J 472.0 RHINITIS 07/26/2013 DIAZ SCHOOL PROGRAM DIRECTOR, CHRIS J 786.09 snoring 07/26/2013 DIAZ SCHOOL PROGRAM DIRECTOR, CHRIS J 472.0 RHINITIS 07/26/2013 DIAZ SCHOOL PROGRAM DIRECTOR, CHRIS J 786.09 snoring 07/26/2013 MIKAELA MELLO, [...] YAZAN E 786. 09 snoring 07/26/2013 DIAZ SCHOOL PROGRAM DIRECTORCHRIS Pop J 472.0 RHINITIS 07/26/2013 DIAZ SCHOOL PROGRAM DIRECTORCHRIS Pop 786.09 snoring 07/26/2013 DIAZ SCHOOL PROGRAM DIRECTORVIRGINIACHRIS J 472.0 RHINITIS 07/26/2013 DIAZ SCHOOL PROGRAM DIRECTORVIRGINIACHRIS J 786.09 snoring 07/26/2013 DIEZ DO RINA K 472.0 RHINITIS 07/26/2013 CHARY FLAHERTY RINA K 786.09 snoring 07/26/2013 GIFFORD C[employer]ERO S[employer] PROGRAM DIRECTOR, SUNIL N 472.0 RHINITIS 07/26/2013 GIFFORD [employer] S[employer] PROGRAM DIRECTOR, SUNIL N 786.09 snoring 07/26/2013 MIKAELA MELLO, YAZAN E 472. 0 RHINITIS 07/26/2013 MIKAELA MELLO, YAZAN E 786. 09 snoring 07/26/2013 ARLEN GARCIAS APRN 472 .0 RHINITIS 07/26/2013 ARLEN GARCIAS APRN 786 .09 snoring 07/26/2013 KETURAH SHAFFER, QUINTIN Singh 472.0 RHINITIS 07/26/2013 KETURAH GARYF, QUINTIN W 786.09 snoring 07/26/2013 YAZAN AL RN 472. [...] Localized Swelling Bilateral 11/29/2013 RINA DIEZ DO 729.81 (Lower) Leg Localized Swelling Bilateral 11/29/2013 YAZAN AL RN 729. 81 (Lower) Leg Localized Swelling Bilateral 11/29/2013 YAZAN AL RN 729. 81 (Lower) Leg Localized Swelling Bilateral 11/29/2013 YAZAN AL RN 729. 81 (Lower) Leg Localized Swelling Bilateral 11/29/2013 HCRIS DIAZ APRN 729.81 (Lower) Leg Localized Swelling Bilateral 11/29/2013 CHRIS DIAZ APRN 729.81 (Lower) Leg Localized Swelling Bilateral 11/29/2013 RINA DIEZ DO K 729.81 (Lower) Leg Localized Swelling Bilateral 11/29/2013 SUNIL HEALY APRN N 729.81 (Lower) Leg Localized Swelling Bilateral 11/29/2013 YAZAN AL RN E 729. 81 (Lower) Leg Localized Swelling Bilateral [...] .3 soft tissue swelling (non-joint) [Sx] 12/18/2013 QUINTIN JONES 782.3 soft tissue swelling (non-joint) [Sx] 12/18/2013 [...] AFFECTIVE DISORDER RECURRENT EPISODE MODERATE DEGREE 01/27/2014 CHRIS DIAZ APRN 296.32 MAJOR DEPRESSIVE AFFECTIVE DISORDER RECU RRENT EPISODE MODERATE DEGREE 01/27/2014 CHRIS DIAZ APRN 296.32 MAJOR DEPRESSIVE AFFECTIVE DISORDER RECU RRENT EPISODE MODERATE DEGREE 01/27/2014 RINA DIEZ DO K 296.32 MAJOR DEPRESSIVE AFFECTIVE DISORDER RECURRENT EPISODE MODERATE DEGREE 01/27/2014 ИРИНА RICHARDSON APRN, SUNIL N 296.32 MAJOR DEPRESSIVE AFFECTIVE DISORDER RECU [...] RN 300. 00 ANXIETY STATE UNSPECIFIED 01/31/2014 CHRIS DIAZ APRN 300.00 ANXIETY STATE UNSPECIFIED 01/31/2014 CHRIS DIAZ APRN 300.00 ANXIETY STATE UNSPECIFIED 01/31/2014 RINA DIEZ DO 300.00 ANXIETY STATE UNSPECIFIED 01/31/2014 LEANNA HEALY APRNCY N 300.00 ANXIETY STATE UNSPECIFIED 01/31/2014 YAZAN AL RN 300. 00 ANXIETY STATE UNSPECIFIED 01/31/2014 ARLEN GARCIAS APRN 300 .00 ANXIETY STATE UNSPECIFIED 01/31/2014 QUINTIN JONES 300.00 ANXIETY STATE UNSPECIFIED 01/31/2014 YAZAN AL RN 300. 00 ANXIETY STATE UNSPECIFIED 03/07/2014 RINA DIEZ DO 729.5 LIMB PAIN LOWER LEG 03/07/2014 RINA DIEZ DO K 924.10 CONTUSION OF LOWER LEG 03/07/2014 YAZAN AL RN E 729. 5 LIMB PAIN LOWER LEG 03/07/2014 YAZAN AL RN E 924. 10 CONTUSION OF LOWER LEG 03/07/2014 YAZAN AL RN E 729. 5 LIMB PAIN LOWER LEG 03/07/2014 YAZAN AL RN E 924. 10 CONTUSION OF LOWER LEG 03/07/2014 YAZAN AL RN E 729. 5 LIMB PAIN LOWER LEG 03/07/2014 YAZAN AL RN E 924. 10 CONTUSION OF LOWER LEG 03/07/2014 CHRIS DIAZ APRN 729.5 LIMB PAIN LOWER LEG 03/07/2014 CHRIS DIAZ APRN 924.10 CONTUSION OF LOWER LEG 03/07/2014 CHRIS DIAZ APRN 729.5 LIMB PAIN LOWER LEG 03/07/2014 CHRIS DIAZ APRN 924.10 CONTUSION OF LOWER LEG 03/07/2014 RINA DIEZ DO K 729.5 LIMB PAIN LOWER LEG 03/07/2014 RINA DIEZ DO K 924.10 CONTUSION OF LOWER LEG 03/07/2014 SUNIL HEALY APRN N 729.5 LIMB PAIN LOWER LEG 03/07/2014 SUNIL HEALY APRN N 924.10 CONTUSION OF LOWER LEG 03/07/2014 YAZAN AL RN E 729. 5 LIMB PAIN LOWER LEG 03/07/2014 YAZAN AL RN E 924. 10 CONTUSION OF LOWER LEG 03/07/2014 DIETERSURI TONG ARLEN 729 .5 LIMB PAIN LOWER LEG 03/07/2014 DIETERSURI TONG ARLEN 924 .10 CONTUSION OF LOWER LEG 03/07/2014 QUINTIN JONES 729.5 LIMB PAIN LOWER LEG 03/07/2014 QUINTIN JONES 924.10 CONTUSION OF LOWER LEG 03/07/2014 YAZAN AL RN E 729. 5 LIMB PAIN LOWER LEG 03/07/2014 YAZAN AL RN E 924. 10 CONTUSION OF LOWER LEG 06/24/2014 DIEZ DO, RINA K 380.4 IMPACTED CERUMEN 06/24/2014 ИРИНА RICHARDSON APRN, SUNIL N 380.4 IMPACTED CERUMEN 06/24/2014 MIKAELA MELLO, YAZAN E 380. 4 IMPACTED CERUMEN 06/24/2014 ARLEN [...] V69.1 INAPPROPRIATE DIET AND EATING HABITS 08/21/2014 YAZAN AL RN V69. 1 INAPPROPRIATE [...] RECURRENT IN PART OR UNSPECIFIED REMISSION 09/22/2014 KETURAH SHAFFER, QUINTIN W 300.01 AN PANIC DIS W/O AGORA 09/22/2014 MIKAELA MELLO, YAZAN Caceres 300. 01 AN PANIC DIS W/O AGORA 11/26/2019 ZHOU MCDANIELS, ADEBAYO Bell Ot Z01.818 ENCOUNTER FOR OTHER PREPROCEDURAL EXAMIN 11/26/2019 ADEBAYO EPPERSON MD Ot Z11.59 ENCOUNTER FOR SCREENING FOR OTHER VIRAL 12/02/2019 ZHOU MCDANIELS, ADEBAYO Bell Ot F32 .9 MAJOR DEPRESSIVE DISORDER, SINGLE EPISOD 12/02/2019 ZHOU MCDANIELS, ADEBAYO Bell Ot F41 .9 ANXIETY DISORDER, UNSPECIFIED 12/02/2019 ADEBAYO EPPERSON MD Ot H25.12 AGE-RELATED NUCLEAR CATARACT, LEFT EYE 12/02/2019 ADEBAYO EPPERSON MD Ot I10 ESSENTIAL (PRIMARY) HYPERTENSION 12/02/2019 ADEBAYO EPPERSON MD Ot Z79.899 OTHER SHELTER (CURRENT) DRUG THERAPY Procedures Code [place] [address] XRAY THORACIC SPINE 2 VIEWS 10/24/2012 12104 XRAY LUMBAR SPINE MIN 4 VIEWS 10/24/2012 94447 ROUT INE VENIPUNCTURE 11/20/2012 97562 CMP 11/20/2012 67153 LIPI D PANEL 11/20/2012 27065 A1C (RML) 11/20/2012 66377 CBC 11/20/2012 THYANA THY ROID ANALYZER 11/20/2012 76661 DEXA BONE DENSITY, AXIAL 11/30/2012 97022 THER APUTIC INJ SQ/IM 04/01/2013 J1885 KOSTA DOL INJ 04/01/2013 PHYSICAL M ERCY, PHY/OCC THERAPY 04/02/2013 [facility] Bariatric [facility] 04/18/2013 59335 URIN E DRUG SCREEN (IN-HOUSE) 07/26/2013 23635 SLEE P STUDY (HOSPITAL- SLEEP STUDY) 07/28/2013 34305 A1C (IN-HOUSE) 11/29/2013 81715 CMP 12/04/2013 60390 LIPI D PANEL 12/04/2013 THYANA THY ROID ANALYZER 12/04/2013 79096 ROUT INE VENIPUNCTURE 12/04/2013 S0280 COMP REHENSIVE CARE MANAGEMENT 02/05/2014 S0280 [facility] TH PROMOTION 02/21/2014 59122 US V ENOUS DOPPLER (DVT EVAL) 03/09/2014 S0281 CARE COORDINATION 03/17/2014 S0280 [facility] TH PROMOTION 04/01/2014 S0281 CARE COORDINATION 04/01/2014 S0280 [facility] TH PROMOTION 04/28/2014 S0281 CARE COORDINATION 04/28/2014 58643 A1C (IN-HOUSE) 04/28/2014 26481 NERI VE IMPACTED EAR WAX UNI 06/24/2014 S0280 [facility] TH PROMOTION 06/26/2014 S0280 COMP REHENSIVE CARE MANAGEMENT 06/26/2014 S0280 [facility]AL TH PROMOTION 07/23/2014 S0280 [facility] TH PROMOTION 09/08/2014 S0281 CARE COORDINATION 09/08/2014 08409 PSYC H DIAGNOSTIC EVALUATION 09/22/2014 S028 CARE COORDINATION 10/13/2014 S028 [facility] PROMOTION 10/16/2014 Results Test Result Range CMP - 06/22/17 15:45 GLUCOSE 106 mg/dL 65-99 UREA NITROGEN (BUN) 9 mg/dL 7-25 CREATININE 0.86 mg/dL 0.60-1.35 eGFR NON-AFR. EMIRATI 103 mL/min/1.73m2 > OR = 60 eGFR [...] D,25-OH,TOTAL,IA 32 ng/mL 30-10 0 CRP - 11/21/19 10:56 C-REACTIVE PROTEIN 12.7 mg/L <8.0 LIPID PANEL - 06/24/19 09:24 CHOLESTEROL, TOTAL 142 mg/dL <200 HDL CHOLESTEROL 36 mg/dL >40 TRIGLYCERIDES 161 mg/dL <150 LDL-CHOLESTEROL 79 mg/dL (calc) NRG CHOL/HDLC RATIO 3.9 (calc) <5.0 NON HDL CHOLESTEROL 106 mg/dL (calc) <13 0 Coronavirus SARS-CoV-2 SO 2018 0 08:49 Coronavirus Ab [Units/volume] in Serum Negative Negative Encounters ACCT No. Visit Date/Time Discharge Status Pt. Type Provider Facility Loc./Unit Complaint [id number] 12/25/2019 14:40:00 ACT Outpatient CHRIS DIAZ APRN [id number] 06/24/2019 09:00:00 Document Registration [id number] 05/02/2019 11:00:00 Document Registration [id number] 06/22/2017 15:00:00 Document Registration [id number] 10/06/2014 08:45:00 10/06/2014 23:59: 59 CLS Outpatient YAZAN AL RN [id number] 09/22/2014 10:00:00 09/22/2014 23:59: 59 CLS Outpatient QUINTIN JONES [id number] 09/01/2014 16:30:00 09/01/2014 23:59: 59 CLS Outpatient YAZAN AL RN [id number] 08/29/2014 09:46:00 08/29/2014 23:59: 59 CLS Outpatient ARLEN GARCIAS APRN [id number] 07/14/2014 10:16:00 07/14/2014 23:59: 59 CLS Outpatient SUNIL HEALY APRN [id number] 06/24/2014 10:49:00 06/24/2014 23:59: 59 CLS Outpatient RINA DIEZ DO [id number] 04/28/2014 09:35:00 04/28/2014 23:59: 59 CLS Outpatient CHRIS DIAZ APRN [id number] 04/28/2014 09:35:00 04/28/2014 23:59: 59 CLS Outpatient CHRIS DIAZ APRN [id number] 04/14/2014 15:15:00 04/14/2014 23:59: 59 CLS Outpatient YAZAN AL RN [id number] 03/12/2014 14:00:00 03/12/2014 23:59: 59 CLS Outpatient YAZAN AL RN [id number] 03/12/2014 08:15:00 03/12/2014 23:59: 59 CLS Outpatient YAZAN AL RN [id number] 03/07/2014 14:21:00 03/07/2014 23:59: 59 CLS Outpatient RINA DIEZ DO [id number] 01/31/2014 12:56:00 01/31/2014 23:59: 59 CLS Outpatient YAZAN AL RN [id number] 01/27/2014 14:25:00 01/27/2014 23:59: 59 CLS Outpatient YAZAN AL RN [id number] 12/18/2013 15:31:00 12/18/2013 23:59: 59 CLS Outpatient CHRIS DIAZ APRN [id number] 12/04/2013 11:55:00 12/04/2013 23:59: 59 CLS Outpatient CHRIS DIAZ APRN [id number] 11/29/2013 14:13:00 11/29/2013 23:59: 59 CLS Outpatient CHRIS DIAZ APRN [id number] 07/26/2013 13:53:00 07/26/2013 23:59: 59 CLS Outpatient CHRIS DIAZ APRN [id number] 04/18/2013 14:42:00 04/18/2013 23:59: 59 CLS Outpatient RINA DIEZ DO [id number] 04/01/2013 14:29:00 04/01/2013 23:59: 59 CLS Outpatient MERCED CHANDLER MD [id number] 12/24/2012 15:48:00 12/24/2012 23:59: 59 CLS Outpatient MERCED CHANDLER MD [id number] 11/23/2011 13:19:00 11/23/2011 23:59: 59 CLS Outpatient [id number] 11/20/2012 08:01:00 Document Registration [id number] 10/23/2012 15:13:00 Document Registration [id number] 12/24/2019 05:50:00 15:24:00 DIS Outpatient ZHOU MCDANIELS, ADEBAYO [facility] PREOP CATATARACT RIGHT EYE [id number] 11/29/2019 08:33:00 11:00:00 DIS Outpatient ADEBAYO EPPERSON MD [facility] CATARACT LEFT EYE [id number] 11/26/2019 05:38:00 15:11:00 DIS Outpatient ADEBAYO EPPERSON MD [facility] PREOP CATARACT LEFT EYE [id number] 11/11/2019 05:55:00 23:59:59 CLS Outpatient ADEBAYO EPPERSON MD [facility] PREOP CATARACT LEFT EYE [id number] 12/27/2019 12:45:00 P EN PreadADEBAYO Dickey MD [facility] CATARACT RIGHT EYE
[2019-12-27] MEDS ORDERED: TIMOLOL MALEATE 0.5% 5 ML (TIMOPTIC) BTL OU PRN (11:45)
[2019-12-27] MEDS ORDERED: POVIDONE (BETADINE) OPHTH SOLN 5% 30 ML OP ONE (11:45)
[2019-12-27] MEDS ORDERED: MOXIFLOXACIN OPHTH SOLN 5 MG/ML 0.3 ML SYRINGE OP ONE (11:45)
[2019-12-27] MEDS ORDERED: LIDOCAINE PF 1% 2 ML VIAL IR PRN (11:45)
[2019-12-27] MEDS: TETRACAINE 0.5% OPHTH SOLN 4 ML BTL (SINGLE DOSE ONLY) OU PRN ×4 (11:47→12:12)
--- NOTE | 2019-12-27 11:53 | Ophthalmologist Pre-Op Note ---
Pre-Operative Progress Note H&P Reviewed The H&P was reviewed, patient examined and no changes noted. Date H&P Reviewed: Dec 27, 2019 Time H&P Reviewed: 11:52 Pre-Op Dx Cataract, Right Eye ADEBAYO EPPERSON MD Dec 27, 2019 11:52
[2019-12-27] MEDS ORDERED: acetaZOLAMIDE ER 500 MG CAP (DIAMOX SEQUELS) PO ONE (12:00)
[2019-12-27] MEDS: PHENYLEPHRINE 10% OPHTH (NEO-SYN) 5 ML BTL OU SCH ×3 (12:01→12:12)
[2019-12-27] MEDS: CYCLOPENTOLATE 1% (CYCLOGYL) 2 ML DROPS OP SCH ×3 (12:01→12:12)
[2019-12-27 12:04] VITALS: BP 157/96
[2019-12-27] MEDS ORDERED: MIDAZOLAM 2 MG/2 ML (VERSED) VIAL ONE (12:15)
--- NOTE | 2019-12-27 13:06 | Ophthalmology Operative Report ---
Cataract removal/placement IOL PREOPERATIVE DIAGNOSIS: Cataract Right Eye POSTOPERATIVE DIAGNOSIS: Cataract Right Eye PROCEDURE: Cataract removal and placement of posterior chamber implant, right eye SURGEON: Ivan Epperson ANESTHESIA: Topical with sedation COMPLICATIONS: None ESTIMATED BLOOD LOSS: Minimal DESCRIPTION OF PROCEDURE: After proper informed consent was obtained, the patient, a 49 male, was taken to the Operating Room and the right eye was anesthetized with tetracaine. The right eye was then prepped and draped in the usual manner. A wire lid speculum was placed. A paracentesis was made at the left hand position. Preservative free lidocaine was injected into the anterior chamber followed by viscoelastic. A clear corneal incision was made in the temporal position. A capsulorrhexis was preformed and the central nuclear and cortical material were removed. The posterior capsule was polished and Nav 16.5 AU00T0 IOL was placed into the capsular bag. The residual viscoelastic was aspirated and balanced saline solution was injected into the anterior chamber. Moxifloxacin was injected into the anterior chamber. The wound was checked and found to be water tight. The patient tolerated the procedure well without complications. IVAN EPPERSON MD Dec 27, 2019 13:06
[2019-12-27 13:13] VITALS: BP 126/59
--- NOTE | 2019-12-31 07:19 | Anesthesia-General Post-Op ---
MAC Significant Intra-Op Events Notes addendum 12-27-19 at 1310 Patient Condition Mental Status/LOC: Same as Preop Cardiovascular: Satisfactory Nausea/Vomiting: Absent Respiratory: Satisfactory Pain: Controlled Complications: Absent Post Op Complications Complications None Follow Up Care/Instructions Patient Instructions None needed. Anesthesiology Discharge Order Discharge Order Patient is doing well, no complaints, stable vital signs, no apparent adverse anesthesia problems. No complications reported per nursing. ABRAHAN NUÑEZ CRNA Dec 31, 2019 07:19
== END 2019-12-27 13:13 | disposition home or self-care (01) ==
LOC: SDC 09:52
PROVIDERS: ATTEND Specialist
DX: H25.11 Age-related nuclear cataract, right eye (principal); F41.9 Anxiety disorder, unspecified; F32.9 Major depressive disorder, single episode, unspecified; I10 Essential (primary) hypertension; E66.01 Morbid (severe) obesity due to excess calories; Z68.41 Body mass index [BMI] 40.0-44.9, adult; Z79.899 Other long term (current) drug therapy
CPT/HCPCS: 66984; V2632

== ENCOUNTER 2020-02-11 11:43 | Outpatient (CLI) | payer MEDICAID ==
[~2020-02-11] VITALS: Ht 182 cm; Wt 147.7 kg
[2020-02-11] MEDS ORDERED: SOLI10TA7 PO (11:50)
[2020-02-11] MEDS ORDERED: ESCI20TA PO (11:50)
== END 2020-02-11 12:28 | disposition home or self-care (01) ==
LOC: PREOP 11:43
PROVIDERS: ATTEND Orthopaedic Surgery
DX: Z01.818 Encounter for other preprocedural examination (principal)

== ENCOUNTER → 2020-02-27 | Outpatient (CLI) | payer MEDICAID ==
[~2020-02-27] MED LIST changes: -CETI10TA21 PO; +CETI10TA49 PO; +ESCI20TA PO; +SOLI10TA7 PO
== END | disposition home or self-care (01) ==
LOC: PREOP 05:41
PROVIDERS: ATTEND Orthopaedic Surgery
DX: Z01.818 Encounter for other preprocedural examination (principal)

== ENCOUNTER 2020-05-18 05:31 | Outpatient (RCR) | payer MEDICAID ==
[~2020-05-18] VITALS: Ht 182 cm; Wt 149.0 kg
[~2020-05-18 05:31] MED LIST changes: +AMLO-251 PO; -AMLO10TA7 PO; +ARIP2TAB20 PO; +OMEP40CA27 PO; +POLY17PO6 PO
== END 2020-05-18 13:36 | disposition home or self-care (01) ==
LOC: PREOP 05:31
PROVIDERS: ATTEND Orthopaedic Surgery
DX: Z01.812 Encounter for preprocedural laboratory examination (principal); S83.511A Sprain of anterior cruciate ligament of right knee, initial encounter; S83.241A Other tear of medial meniscus, current injury, right knee, initial encounter; Z20.828 Contact with and (suspected) exposure to other viral communicable diseases
CPT/HCPCS: 87635

== ENCOUNTER 2020-05-20 07:27 | Day surgery (SDC) | payer MEDICAID ==
--- NOTE | 2020-05-11 11:14 | HISTORY AND PHYSICAL ---
DATE OF SERVICE: This will be for outpatient surgery on 05/20/2020 for right knee ACL reconstruction. HISTORY OF PRESENT ILLNESS: The patient is a 49-year-old gentleman with a known ACL deficient right knee following a fall. He reports instability in his knee despite extensive conservative measures. He reports giving way with regular activities and because of this, I elected to proceed with surgical intervention. REVIEW OF SYSTEMS: No chest pain, no shortness of breath, no dysuria. PAST MEDICAL HISTORY: Diabetes, hypertension, sleep apnea, enlarged heart, morbid obesity, hyperlipidemia, renal insufficiency. PAST SURGICAL HISTORY: Right wrist sleeve gastrectomy and EGD. FAMILY HISTORY: Significant for hypertension, obesity, cardiovascular disease, mental illnesses. PRIMARY CARE PROVIDER: [facility] in [place]. MEDICATIONS: Furosemide, omeprazole, atenolol, lisinopril, Flovent, Flonase, Zofran, Viibryd, buspirone, Lamictal, Zyrtec, trazodone, Intuniv. ALLERGIES: , RAGWEED, WEED, PEANUTS, MILK, EGGS, CODEINE. SOCIAL HISTORY: The patient denies alcohol, tobacco use. PHYSICAL EXAMINATION: GENERAL: The patient is well-developed, well-nourished, in no acute distress. HEENT: Normocephalic, atraumatic. Pupils are equal, round and reactive to light. Oropharynx is clear. NECK: Supple, no lymphadenopathy. LUNGS: Clear to auscultation bilaterally. HEART: Regular rate and rhythm. ABDOMEN: Soft, nontender, nondistended. EXTREMITIES: The right knee demonstrates 2+ Shy, 2+ anterior drawer, positive pivot shift, no varus valgus laxity. Negative posterior drawer. Range of motion is 0/0/135. He is tender along his posterior medial joint line, has pain posteriorly with hyperflexion. He ambulates with a flexed knee gait on the right. IMPRESSION: Right ACL deficiency. PLAN: Right knee ACL reconstruction. Risks, benefits, options, ramifications and recovery were discussed at length with the patient. He understands and wishes to proceed. Job ID: [id number] DocumentID: [id number] Dictated Date: 05/11/2020 10:57:25 Dough Cutting Machine Operator Date: 05/11/2020 11:14:03 Dictated By: AMMY FARAH MD
[~2020-05-20] VITALS: Ht 182 cm; Wt 149.0 kg
[2020-05-20] VITALS (10 sets, daily range): BP systolic 122–165; BP diastolic 79–103
[2020-05-20] MEDS ORDERED: oxyCODONE/APAP 5/325MG (PERCOCET 5) TABLET PO PRN (07:30)
[2020-05-20] MEDS ORDERED: morphine PF (DURAMORPH) 10 MG/10 ML AMP ONE (07:34)
[2020-05-20] MEDS ORDERED: BUPIVACAINE 0.25% 30 ML (SENSORCAINE) VIAL ONE (07:34)
[2020-05-20] MEDS ORDERED: fentaNYL INJECTION 100 MCG/2 ML AMP ONE (07:41)
[2020-05-20] MEDS ORDERED: MIDAZOLAM 2 MG/2 ML (VERSED) VIAL ONE (07:41)
--- NOTE | 2020-05-20 07:42 | Progress Note-Pre Operative ---
Pre-Operative Progress Note H&P Reviewed The H&P was reviewed, patient examined and no changes noted. Date Seen by Provider: May 20, 2020 Time Seen by Provider: 07:30 Date H&P Reviewed: May 20, 2020 Time H&P Reviewed: 07:11 Pre-Operative Diagnosis: right ACL and medial meniscus tears AMMY FARAH MD May 20, 2020 07:42
--- NOTE | 2020-05-20 07:44 | Progress Note-Post Operative ---
Post-Operative Progess Note Surgeon (s)/Router Machine Operator (s) Surgeon AMMY FARAH MD Router Machine Operator: John Bynum Pre-Operative Diagnosis right ACL and medial meniscus tears Post-Operative Diagnosis right ACL tear and medial femoral condyle chondromalacia Procedure & Operative Findings Date of Procedure 05/20/20 Procedure Performed/Findings right knee arthroscopic ACL reconstruction and chondroplasty of the medial femoral condyle Anesthesia Type GETA Estimated Blood Loss Estimated blood loss (mL): minimal Specimens/Packing Specimens Removed none Packing: none AMMY FARAH MD May 20, 2020 07:44
[2020-05-20] MEDS: LACTATED RINGERS 1,000 ML IV PRN ×2 (07:45→08:32)
[2020-05-20] MEDS ORDERED: ceFAZolin 2 GM IV Premixed 50 ML ONE (07:52)
[2020-05-20] MEDS ORDERED: LIDOCAINE PF 2% 5 ML (XYLOCAINE) VIAL ONE (08:16)
[2020-05-20] MEDS ORDERED: ONDANSETRON 4 MG/2 ML (SDV) Z0FRAN ONE (08:16)
[2020-05-20] MEDS ORDERED: BUPIVACAINE 0.5% 30 ML (SENSORCAINE) VIAL ONE (08:16)
[2020-05-20] MEDS ORDERED: proPOfol 200 MG/20 ML (DIPRIVAN) VIAL IV ONE (08:16)
[2020-05-20] MEDS ORDERED: ROCURONIUM 10 MG/ML 5 ML SYRINGE IV ONE (08:16)
[2020-05-20] MEDS ORDERED: NEOSTIGMINE 3 MG/3 ML VIAL ONE (09:08)
[2020-05-20] MEDS ORDERED: ESMOLOL 100 MG/10 ML (BREVIBLOC) VIAL ONE (09:08)
[2020-05-20] MEDS ORDERED: GLYCOPYRROLATE 0.2 MG/ML (ROBINUL) 2 ML VIAL ONE (09:08)
[2020-05-20] MEDS ORDERED: SEVOFLURANE (ULTANE) 15 ML INHAL SOLN ONE (09:08)
[2020-05-20] MEDS ORDERED: morphine INJ 10 MG/ML 1ML (SYR OR VIAL) ONE (09:44)
[2020-05-20] MEDS ORDERED: ONDANSETRON 4 MG/2 ML (SDV) Z0FRAN IVP PRN (09:45)
[2020-05-20] MEDS ORDERED: HYDROmorphone 2 MG/ML VIAL (DILAUDID) IV ONE (09:45)
[2020-05-20] MEDS ORDERED: morphine INJ 10 MG/ML 1ML (SYR OR VIAL) IVP ONE (09:45)
[2020-05-20] MEDS ORDERED: OXYC-471 PO (10:39)
--- NOTE | 2020-05-20 10:43 | Anesthesia-General Post-Op ---
General Patient Condition Mental Status/LOC: Same as Preop Cardiovascular: Satisfactory Nausea/Vomiting: Absent Respiratory: Satisfactory Pain: Controlled Complications: Absent Post Op Complications Complications None Follow Up Care/Instructions Patient Instructions None needed. Anesthesia/Patient Condition Patient Condition Patient is doing well, no complaints, stable vital signs, no apparent adverse anesthesia problems. Block is working well and he is having minimal "tingling" in his knee but no pain per patient. PRISCA MIDDLETON DO May 20, 2020 10:43
--- NOTE | 2020-05-20 11:34 | Physical Therapy Ortho Eval ---
PT Orthopedic Evaluation Type of Surgery Knee Scope right side ACL repair Prior Level of Function Current Living Status: Alone Locomotion (Upon Admit): Independent Established Durable Medical Eq: Front Wheeled Walker Subjective Subjective Patient in bed pre tx, has right knee immobilizer, has no complaints of pain, states his right leg is still a little numb. Entry Into Home: Level Entry Other Obstacles: Patient states he lives in a duplex, he says senior housing and has no step Motor Control Motor Control: Motor Control WNL Transfer SCALE: Activities may be completed with or without assistive devices. 3-Rxwyznxwiv-izcmokd completes the activity by him/herself with no assistance from a helper. 5-Set-up or Clean-up Assistance-helper sets up or cleans up; patient completes activity. [place] assists only prior to or following the activity. 4-Supervision or Touching Assistance-helper provides verbal cues and/or touching/steadying and/or contact guard assistance as patient completes activity. Assistance may be provided throughout the activity or intermittently. 3-Partial/Moderate Assistance-helper does LESS THAN HALF the effort. [place] lifts, holds or supports trunk or limbs, but provides less than half the effort. 2-Substantial/Maximal Assistance-helper does MORE THAN HALF the effort. [place] lifts or holds trunk or limbs and provides more than half the effort. 8-Mdpmpyamo-fwldqd does ALL the effort. Patient does none of the effort to complete the activity. Or, the assistance of 2 or more helpers is required for the patient to complete the activity. If activity was not attempted, code reason: 7-Patient Refused. 9-Not Applicable-not attempted and the patient did not perform the activity before the current illness, exacerbation or injury. 10-Not Attempted due to Environmental Limitations-(lack of equipment, weather restraints, etc.). 88-Not Attempted due to Medical Conditions or Safety Concerns. Transfers (B, C, W/C) (QC): 3 Myrna Gait Gait Assistive Device: FWW Weight Bearing Status RLE: Weight Bearing/Tolerated Summary/Comments Patient ambulated about 15' with a rolling walker with CGA, patient was unsteady immediately upon standing and required steadying assistance. Patient ambulates slowly, inches at a time with each step, he can bear weight on right leg. He is slightly unsteady with ambulation, requiring steadying assist but no LOB. Treatment Rendered Treatment: Therapeutic Exercises, Gait Train Exercise Instruction: Quad Sets, Ankle Pumps Assessment/Goals Goal Time Frame: 1 Visit Understands HEP: Yes Safe Ambulation: No Patient apparently doesn't have any assist to get into his home from this hospital. Discussed this with the nurse , she says she will contact Dr. Romero and see where it goes from there. He may benefit from a short stay at the hospital. Plan Treatment Plan: Discharge PT/Family Agrees to Plan: Yes Time Time In: 1100 Time Out: 1119 Total Billed Treatment Time: 19 Billed Treatment Time 1 visit EVL 19' TYRA FUENTES PT May 20, 2020 11:34
--- NOTE | 2020-05-20 16:53 | OPERATIVE REPORT ---
DATE OF SERVICE: 05/20/2020 PREOPERATIVE DIAGNOSES: 1. Right knee anterior cruciate ligament tear. 2. Right knee medial meniscus tear. POSTOPERATIVE DIAGNOSES: 1. Right knee anterior cruciate ligament tear. 2. Right knee medial meniscus tear. 3. Right knee chondromalacia of the medial femoral condyle. PROCEDURES: 1. Right knee arthroscopic ACL reconstruction. 2. Right knee arthroscopic chondroplasty of the medial femoral condyle. SURGEON: Juancarlos Farah MD CITY EDITOR: John Bynum, who assisted throughout the procedure and closed the incisions. ANESTHESIA: General endotracheal by Dr. Graham. TOURNIQUET TIME: Nonfocal. ESTIMATED BLOOD LOSS: Minimal. DRAINS: None. COMPLICATIONS: None. POSTOPERATIVE PLAN: ACL protocol. The patient was transferred to the recovery room awake and stable condition. STATEMENT OF MEDICAL NECESSITY: The patient is a 49-year-old gentleman who injured his right knee remotely. Since then, he has had episodes of instability and giving way. He had 2+ Shy, 2+ anterior drawer and positive pivot shift. Due to functional impairment and failure to improve with extensive conservative measures, the patient elected to proceed with surgical intervention. Examination under anesthesia revealed range of motion of 0/0/135 with a 2+ anterior drawer with a spongy endpoint, 2+ Shy with a spongy endpoint and positive pivot glide. Arthroscopic findings, the patella and trochlea demonstrated no gross chondral abnormalities. Medial and lateral gutters were clear. The lateral compartment demonstrated no meniscal or chondral pathology. The medial compartment demonstrated no meniscal pathology; however, there was grade II chondral flap of central weightbearing portion of femoral condyle in a 10 x 10 area. The ACL was 80% disrupted from its femoral attachment and scarred to the PCL. The PCL was intact. DESCRIPTION OF PROCEDURE: After risks and benefits of procedure were discussed and questions were answered, informed consent was signed and placed on chart. The operative site was confirmed in the preoperative holding area initialed by the surgeon. The patient was transferred to the operating room and after adequate levels of general endotracheal anesthetic were obtained. A timeout was called, confirming the operative site. Examination under anesthesia was performed with above findings noted. The right lower extremity was prepped and draped in the usual sterile fashion. The knee joint was injected with 60 mL of fluid and standard inferolateral portals placed with arthroscope inflow cannula. Under direct visualization and inferior medial portal was created. The menisci and cruciates carefully probed with the above findings noted. The unstable chondral flaps in the medial femoral condyle were debrided with shaver back to a stable edge. The ACL remnant was debrided with a shaver. The dsie-cax-ver position was identified. A notchplasty was performed with a shaver. A 10 mm bone patellar tendon bone allograft was used. This was fashioned to pass easily through a size 10 tunnel with 2 sutures passed through each bone plug. A percutaneous incision was made one thumb breadth medial to the tibial tubercle with a guide set at 63 degrees. The tibial guide was set on the footprint in line with the anterior horn of the lateral meniscus. The guidewire was passed and felt to be in excellent position. This was then reamed with 10 mm reamer. Debris was removed with a shaver. The ksmm-aab-nzd guide was placed at the 10 o'clock position. The guidewire was passed through the lateral aspect of the thigh. This was felt to be in excellent position. A 10 mm reamer was reamed to a depth of 30 mm and debris was removed with the shaver. The graft was then passed and fit snuggly on the femoral side. The knee was cycled and the graft was stable. A 9 x 25 mm interference screw was placed on with excellent purchase obtained. The graft was pulled vigorously distally and was stable. The knee was taken through range of motion with no pistoning of the tibial exit site was noted. No impingement of the graft was noted under direct visualization with the arthroscope. The knee was held in 30 degrees of flexion and posterior drawer was applied and a 9 x 25 mm interference screw was placed on the tibial side with excellent purchase obtained. The knee was taken through range of motion with full motion obtained. Negative Shy, negative pivot shift, negative anterior drawer were noted. The knee joint was copiously irrigated under direct visualization. The graft showed no signs of impingement and was stable to probing. The portal sites were closed with 4-0 nylon in septic fashion. The incision site was reapproximated with 3-0 Vicryl for the subcutaneous layer and 4-0 nylon at the incision site. The knee joint was injected with Duramorph. Port sites were infiltrated with plain Marcaine. A soft dressing and brace were applied. The patient was transferred to the recovery room awake and in stable condition. Job ID: [id number] DocumentID: [id number] Dictated Date: 05/20/2020 09:32:10 Bowling Ball Assembler Date: 05/20/2020 16:52:38 Dictated By: JUANCARLOS FARAH MD
== END 2020-05-20 12:00 | disposition home or self-care (01) ==
LOC: SDC 07:27
PROVIDERS: ATTEND Orthopaedic Surgery
DX: S83.91XA Sprain of unspecified site of right knee, initial encounter (principal); M94.261 Chondromalacia, right knee; S83.241A Other tear of medial meniscus, current injury, right knee, initial encounter; E11.9 Type 2 diabetes mellitus without complications; I10 Essential (primary) hypertension; G47.33 Obstructive sleep apnea (adult) (pediatric); E66.01 Morbid (severe) obesity due to excess calories; E78.5 Hyperlipidemia, unspecified; N28.9 Disorder of kidney and ureter, unspecified; Z91.018 Allergy to other foods; Z91.010 Allergy to peanuts; Z91.011 Allergy to milk products; Z91.012 Allergy to eggs; Z88.5 Allergy status to narcotic agent
CPT/HCPCS: 87081